=== PATIENT | female | born 1965 | race Caucasian/White ===

== ENCOUNTER 2018-01-09 14:18 | Inpatient (IN) | payer MEDICARE, SELFPAY ==
[2018-01-09] VITALS (10 sets, daily range): BP systolic 163–204; BP diastolic 64–94; PULSE 75–101; RESP 18–31; TEMP 36.9–37.2; O2SAT 82–95; BMI 44.9; BMI 47.6
--- NOTE | 2018-01-09 15:13 | EKG12_ITS ---
Test Reason : SOB Blood Pressure : / mmHG Vent. Rate : 078 BPM Atrial Rate : 078 BPM P-R Int : 190 ms QRS Dur : 080 ms QT Int : 408 ms P-R-T Axes : 038 024 038 degrees QTc Int : 465 ms Normal sinus rhythm Nonspecific T wave abnormality Prolonged QT Abnormal ECG Confirmed by JAREN REYES, ALTON ([id number]), makeup editor DC HOPSON ([id number]) on 01/11/2018 3:23:26 PM Referred By: Jordan Chow Confirmed By:ALTON EASTMAN MD
--- NOTE | 2018-01-09 15:13 | RAD_ITS ---
STUDY: X-RAY CHEST REASON FOR EXAM: Female, 52 years old. Shortness of breath x2 days. TECHNIQUE: Single frontal view of the chest. COMPARISON: None. FINDINGS: There are perihilar opacities. There is an indeterminant rounded opacity within the right infrahilar region. Normal size heart. Normal mediastinum and kristi. Normal visualized pulmonary arteries. Normal visualized aortic arch and descending thoracic aorta. Normal visualized thoracic spine. Normal visualized ribs, clavicles, and shoulders. There is no demonstrated abnormality of the visualized soft tissue structures of the upper abdomen. RAD/Chest 1 View (Portable) IMPRESSION: Perihilar opacities may be secondary to edema and/or pneumonia. Indeterminate rounded right infrahilar opacity, again this may be secondary to edema and/or pneumonia however cannot exclude underlying mass, consider CT for further characterization. Electronically Signed: Micaela Burton MD at 16:24 EDT Tel , Service support ,
--- NOTE | 2018-01-09 15:17 | NURSING ---
NO OLD EKGS
--- NOTE | 2018-01-09 15:18 | ED.DCSUM_ITS ---
- ER Visit Summary Date of Service: 01/09/18 Chief Complaint: Shortness of breath History of Present Illness: The patient is a 52 F presenting with shortness of breath times 2 days. She states this has been progressively worsening. She complains of a productive cough. She denies fever. Denies chest pain. She has a history of COPD, coronary artery disease, diabetes, hypertension, hypercholesterolemia. She is in town from [place] visiting her sister. She does not have her inhalers with her and she felt she had wheezing at home. Physical Examination: Vitals are stable. Patient is afebrile. Pulse ox 87% on room air. Alert no acute distress. HEENT exam is unremarkable. Neck is supple. Lungs are diminished bilaterally, bilateral wheezing Heart is regular rate and rhythm. Abdomen is soft nontender nondistended. Extremities are unremarkable. Skin is warm and dry. Remainder of exam is unremarkable. Emergency Department Course and Treatment: Patient was given albuterol, Atrovent aerosols. Chest x-ray shows right-sided infiltrate. EKG is sinus rate 78 with no acute changes. CBC unremarkable. Chemistries show sodium 132, BUN 30, creatinine 1.94. Troponin is negative. She is given Levaquin IV. Due to her hypoxia will discuss with the hospitalist for admission. Disposition: Admission Impression: Community acquired pneumonia, hypoxia This note was generated with [employer] dictation software. It may contain incorrect words, spelling, and punctuation that were not noted in review of the chart prior to signing ED Disposition - Plan for ED Patient: Chief Complaint: Shortness of Breath
[2018-01-09] MEDS: Ipratropium/Albuterol Sulfate 3 ML AMPUL.NEB INHALATION ×2 (15:25→20:15)
[2018-01-09] MEDS: Albuterol 2.5 MG/3 ML VIAL.NEB. INHALATION ×3 (15:25→15:40)
[2018-01-09 15:43] LABS: Absolute Lymphocyte Count 0.72 X10^3/ul (0.83-4.51); Absolute Neutrophil Count 7.1 X10^3/uL (2.0-7.7); Basophil# 0.02 X10^3/uL; Basophil% 0.2 % (0-1); Eosinophil# 0.15 X10^3/uL; Eosinophils% 1.7 % (0-5); Hematocrit 38.1 % (37-47); Hemoglobin 12.8 g/dl (12.0-15.0); Lymphocyte # 0.72 X10^3/ul (4.0); Lymphocyte % 8.3 % (19-41); Mean Corp Hgb Conc 33.6 g/gl (32-36); Mean Corpuscular Hgb 29.6 pg (27.0-32.0); Mean Corpuscular Volume 88.2 fL (81-99); Mean Platelet Vol. 12.8 fl (6.2-12.0); Monocyte# 0.66 X10^3/uL; Monocyte% 7.6 % (0-10); Neutrophil # 7.12 X10^3/uL (2.7-7.7); Platelet Count 191 K/mm3 (150-450); RBC Distribution Width CV 13.2 % (11.6-14.6); RBC Distribution Width SD 41.8 fl (35.1-43.9); Red Blood Count 4.32 M/mm3 (4.2-5.4); White Blood Count 8.7 K/mm3 (4.4-11.0)
[2018-01-09 15:44] LABS: POSITIVE COUNT NO; POSITIVE DIFFERENTIAL NO; POSITIVE MORPHOLOGY NO
[2018-01-09 16:02] LABS: Anion Gap 7 (5-15); BUN 30 mg/dL (7-18); BUN/Creat Ratio 15.5 RATIO (10-20); Calcium,Total 7.9 mg/dL (8.5-10.1); Chloride 97 mmol/L (98-107); Creatinine, Serum 1.94 mg/dL (0.55-1.02); EST Glomerular Filtration Rate 29 mL/min (>60); Est Glom Filt Rate - Afr Amer 35 mL/min (>60); Estimated Creatinine Clearance 26.83 ml/min; Glucose 430 mg/dL (74-106); Sodium Level 132 mmol/L (136-145)
--- NOTE | 2018-01-09 16:44 | NURSING ---
MED SURG CAP, HYPOXIA RUDI
[2018-01-09] MEDS: levoFLOXacin IV 750 MG/150 ML BAG 100 MG IV (17:04)
--- NOTE | 2018-01-09 17:23 | HP.PCM_ITS ---
Problem List (1) Acute kidney injury Status: Acute (2) Acute renal injury due to circulatory failure Status: Acute (3) Morbid obesity Status: Acute (4) Hypertension Status: Chronic (5) Asthma Status: Acute Qualifiers: Asthma severity: mild Asthma persistence: persistent Asthma complication type: with acute exacerbation Qualified Code(s): J45.31 - Mild persistent asthma with (acute) exacerbation (6) Community acquired bacterial pneumonia Status: Acute History of Present Illness Date of Admission: 01/09/18 Chief Complaint: Cough and shortness of breath This is a 50-year-old female with a history of hypertension insulin-dependent type 2 diabetes morbid obesity and coronary artery disease status post stents. Presents to the emergency department with a 2-3-day history of increasing fatigue, malaise, shortness of breath, exertional dyspnea and cough. Patient also has a fever and chills. Cough is productive of yellowish sputum she has not noted any hemoptysis. 1-2 days ago has been noticing some wheezing. She denies any lower extremity swelling, orthopnea or paroxysmal nocturnal dyspnea. Past Medical History Past Medical History (Chronic Problems): Chronic Problems Hypertension (Chronic) Allergies No Known Allergies Allergy (Verified 01/09/18 14:24) Home Medications: Ambulatory Orders Medication Instructions Recorded Aspirin [Aspirin, Baby] 81 mg PO DAILY 01/09/18 Atenolol [Tenormin] 100 mg PO DAILY 01/09/18 Clopidogrel Bisulfate [Plavix] 75 mg PO DAILY 01/09/18 Duloxetine Hcl [Cymbalta] 60 mg DAILY 01/09/18 Gabapentin [Gralise] 600 mg TID 01/09/18 Insulin Lispro [Humalog KwikPen] 0 units TID 01/09/18 Levemir FlexPen 80 units BID 01/09/18 Lisinopril [Zestril] 80 mg BID 01/09/18 Lovastatin [Mevacor] 40 mg PO DAILY 01/09/18 Vitamin D 4,000 units BID 01/09/18 Smoking Status: Former smoker Review of Systems Constitutional: Reports: Anorexia, Chills, Fever, Malaise, Weakness, Fatigue Cardiovascular: Denies: Edema Respiratory: Reports: Cough, Shortness of Breath, Shortness of breath at rest, Shortness of breath upon exertion, Sputum production, Wheezing Gastrointestinal: Reports: Nausea. Denies: Abdominal Pain, Vomiting Comment: All other systems reviewed and essentially negative VTE Information - Inpt Only VTE Present on Admission: No Patient Problems: Active and Suspected Problems Acute kidney injury (Acute) Acute renal injury due to circulatory failure (Acute) Morbid obesity (Acute) Asthma (Acute) Community acquired bacterial pneumonia (Acute) - Physical Exam General: Alert, Oriented x3, Cooperative, - - Acutely ill looking and mildly dyspneic HEENT: Atraumatic, PERRLA, EOMI, Normocephalic Oral: Moist Mucosa Neck: Supple, No JVD Lungs: - - Bilateral expiratory wheezing, mild, with associated transmitted sounds. Patient also has bronchial breath sounds and fine crackles in the right mid and lower zones. Cardiovascular: Regular rate, Regular Rhythm, Normal S1, Normal S2, No Ectopic Activity, - - Grade 2/6 systolic murmur noted patient also has right ventricular fourth and third heart sound Abdomen: Soft, Non Tender, Non-Distended, No Hepato-splenomegaly, Obese Extremities: No edema Skin: No rashes Neurological: Cranial nerves II-XII grossly intact, Neuro grossly intact Psych/Mental Status: Normal Affect, Appropriate Vital Signs Temp Pulse Resp BP Pulse Ox 98.8 F 87 31 H 197/82 H 89 01/09/18 14:19 01/09/18 15:26 01/09/18 16:29 01/09/18 15:01 01/09/18 16:29 Oxygen Flow Rate (L/min) 2 Oxygen Delivery Method Room Air Weight: 111.584 kg Body Mass Index (BMI) 44.9 Laboratory Tests Past 24 Hrs 01/09/18 01/09/18 15:30 15:30 WBC 8.7 RBC 4.32 Hgb 12.8 Hct 38.1 MCV 88.2 MCH 29.6 MCHC 33.6 RDW 13.2 RDW Differential 41.8 Plt Count 191 MPV 12.8 H Immature Gran % (Auto) 0.200 Neut % (Auto) 82.0 H Lymph % (Auto) 8.3 L [place] % (Auto) 7.6 Eos % (Auto) 1.7 Baso % (Auto) 0.2 Absolute Neuts (auto) 7.1 Absolute Lymphs (auto) 0.72 L Total Counted Not Reportable Sodium 132 L Potassium 4.0 Chloride 97 L Carbon Dioxide 28.0 Anion Gap 7 BUN 30 H Creatinine 1.94 H Estim Creat Clear Calc 26.83 Est GFR (MDRD) Af Amer 35 L Est GFR (MDRD) Non-Af 29 L BUN/Creatinine Ratio 15.5 Glucose 430 H Calcium 7.9 L Troponin I < 0.015 Assessment/Plan All Active Problems Acute kidney injury (Acute) Acute renal injury due to circulatory failure (Acute) Morbid obesity (Acute) Asthma (Acute) Community acquired bacterial pneumonia (Acute) 1. Committee acquired bacterial pneumonia. Will treat with IV antibiotics. 2. Acute hypoxic respiratory failure secondary to pneumonia. Oxygen saturation was 87% on RA. We will continue with supplemental oxygen and wean as tolerated. 3. Elevated creatinine. Uncertain if this is secondary to acute kidney injury or stage III CKD as patient does indeed have risk factors for CKD predominantly hypertension and diabetes. 4. Hypertension. Poorly controlled and markedly elevated at this time. Will resume patient's antihypertensives as these have been missed for today. 5. Insulin-dependent type 2 diabetes. Blood glucose markedly elevated at this time due to missed insulin doses. Will resume home regimen of insulin. Will place patient on a diabetic diet. Accu-Cheks before meals and at bedtime. 6. Morbid obesity. Code Visit Inpatient E&M: 76300 Init Hosp L3
--- NOTE | 2018-01-09 17:46 | CT_ITS ---
STUDY: CT CHEST WITHOUT CONTRAST REASON FOR EXAM: Female, 52 years old. Pneumonia, fatigue, malaise, shortness of breath, exertional. Cough, dyspnea, fever, chills, wheezing, hypertension, diabetes, asthma, heart stents RADIATION DOSAGE (If Supplied By Facility): CTDIvol = ( 20.15 ) mGy, DLP = ( 629.31 ) mGycm TECHNIQUE: Transaxial 2.5 mm imaging was performed without the administration of intravenous contrast material. Multiplanar coronal and sagittal images were reformatted. This examination is limited for the evaluation of gastrointestinal, solid organs and vascular structures due to the lack of intravenous contrast. There is obesity, the entirety of soft tissue is not imaged. Individualized dose optimization techniques were used for this CT. COMPARISON: Chest x-ray 03/11/2018. FINDINGS: There is airspace opacification and groundglass opacification involving the right greater than left lung. Atelectatic changes versus small infiltrate in the lung bases bilaterally. There is a small right, tiny left pleural effusion, fluid tracking into the left greater than right major fissure.. There is no demonstrated pleural abnormality. There is cardiac enlargement. There are calcifications of the coronary arteries and probable stent placement. There is no pericardial fluid. There is an enlarged lymph node anterior to the right mainstem bronchus a 1.2 cm short abscess, probable lymphadenopathy in the right hilum with otherwise multiple mediastinal small lymph nodes, which are normal in size and morphology most compatible with reactive lymph hyperplasia. Normal hilar regions. Normal unenhanced pulmonary arteries. There is atherosclerotic tortuosity of the aortic arch and descending thoracic aorta. There are multi-level degenerative changes of the thoracic spine. There is no demonstrated abnormality of the visualized upper abdomen. CT/Chest without Contrast IMPRESSION: Right greater than left airspace opacification likely inflammatory/infectious in nature. Mild mediastinal lymphadenopathy and lymphoid hyperplasia suspected. Cardiac enlargement, coronary artery disease, stent placement, arteriosclerosis and mild degenerative changes. Right greater than left small pleural effusions. Electronically Signed: Enriqueta Talbert MD at 6:50 EDT , Service support ,
[2018-01-09 18:29] LABS: Erythrocyte Sedimentation Rate 68 mm/hr (0-30)
[2018-01-09 18:46] LABS: Bedside Glucose 474 mg/dL (70-110)
[2018-01-09] MEDS: Insulin Lispro 100 UNIT/ML INSULN.PEN 20 UNIT SC (18:47)
[2018-01-09] MEDS: Atenolol 100 MG Tablet PO (18:49)
--- NOTE | 2018-01-09 18:53 | NURSING ---
dr august notified of blood sugar 474 and lab back up ordered per protocol. no new orders at this time. also aware of vsa scoring 2, elevated hr, bp and resps, does not want lactic acid drawn at this time
[2018-01-09 19:38] LABS: Mucous, Urine 0 SEEN /hpf (<or=2+)
[2018-01-09 19:40] LABS: Color, Urine Yellow (Yellow); Glucose, Dipstick 1000 mg/dl (Normal); Ketone-Dipstick 5 mg/dl (Negative); Leukocyte Esterase-Dipstick 100 /ul (Negative); Nitrite-Dipstick Negative (Negative); Occult Blood-Urine 50 /ul (Negative); Protein-Dipstick 500 mg/dl (Negative); Urine Bilirubin Dipstick Negative (Negative); Urine Clarity Cloudy (Clear); Urine Urobilinogen Normal (Normal)
[2018-01-09 19:51] LABS: Hyaline Cast 0-5 SEEN /lpf (0-5)
[2018-01-09 19:53] LABS: Fine Granular Cast- Urine 0-5 SEEN /lpf (0-5)
[2018-01-09 19:54] LABS: Bacteria 1+ /hpf (None Seen); Squamous Epithelial Cells - UA 5-10 SEEN /hpf (5-10)
[2018-01-09 19:55] LABS: Red Blood Cells-Urine 0-5 SEEN /hpf (0-5); White Blood Cells 0-5 SEEN /hpf (0-5); Yeast-Urine RARE /hpf (None Seen)
[2018-01-09 20:04] LABS: Glucose 494 mg/dL (74-106)
[2018-01-09] MEDS: Clopidogrel Bisulfate 75 MG Tablet PO (21:58)
[2018-01-09] MEDS: DULoxetine Hcl 60 MG Capsule PO (21:58)
[2018-01-09] MEDS: Gabapentin 600 MG Tablet PO (21:58)
[2018-01-09] MEDS: Aspirin 81 MG TAB.CHEW PO (21:59)
[2018-01-09] MEDS: Atorvastatin Calcium 10 MG Tablet PO (22:02)
[2018-01-09 22:10] LABS: Bedside Glucose 346 mg/dL (70-110)
[2018-01-09] MEDS: HYDROcodone Bitartrate/Apap 5/325 Tablet PO (22:59)
[2018-01-09] MEDS: Insulin Lispro 100 UNIT/ML INSULN.PEN SQ (22:59)
[2018-01-10] VITALS (9 sets, daily range): BP systolic 149–166; BP diastolic 72–88; PULSE 65–92; RESP 17–21; TEMP 36.6–36.8; O2SAT 91–96
[2018-01-10 05:41] LABS: Bedside Glucose 95 mg/dL (70-110)
[2018-01-10 05:59] LABS: Absolute Lymphocyte Count 1.81 X10^3/ul (0.83-4.51); Absolute Neutrophil Count 5.3 X10^3/uL (2.0-7.7); Basophil# 0.02 X10^3/uL; Basophil% 0.2 % (0-1); Eosinophil# 0.28 X10^3/uL; Eosinophils% 3.3 % (0-5); Hematocrit 32.1 % (37-47); Hemoglobin 10.7 g/dl (12.0-15.0); Lymphocyte # 1.81 X10^3/ul (4.0); Lymphocyte % 21.3 % (19-41); Mean Corp Hgb Conc 33.3 g/gl (32-36); Mean Corpuscular Hgb 29.1 pg (27.0-32.0); Mean Corpuscular Volume 87.2 fL (81-99); Mean Platelet Vol. 12.3 fl (6.2-12.0); Monocyte# 1.01 X10^3/uL; Monocyte% 11.9 % (0-10); Neutrophil # 5.34 X10^3/uL (2.7-7.7); Neutrophil % 62.9 % (47-70); Platelet Count 214 K/mm3 (150-450); RBC Distribution Width SD 41.8 fl (35.1-43.9); Red Blood Count 3.68 M/mm3 (4.2-5.4); White Blood Count 8.5 K/mm3 (4.4-11.0)
[2018-01-10 06:08] LABS: POSITIVE COUNT NO; POSITIVE DIFFERENTIAL NO; POSITIVE MORPHOLOGY NO
[2018-01-10 06:30] LABS: ALB/GLOB Ratio 0.4 RATIO (0.9-2.4); AST(SGOT) 14 U/L (15-37); Alanine Aminotransfer ALT/SGPT 11 U/L (13-56); Albumin, Serum 1.5 g/dL (3.2-5.0); Alkaline Phosphatase 107 U/L (45-117); Anion Gap 11 (5-15); BUN 30 mg/dL (7-18); BUN/Creat Ratio 17.4 RATIO (10-20); Calcium,Total 7.6 mg/dL (8.5-10.1); Chloride 99 mmol/L (98-107); Creatinine, Serum 1.72 mg/dL (0.55-1.02); EST Glomerular Filtration Rate 33 mL/min (>60); Est Glom Filt Rate - Afr Amer 40 mL/min (>60); Estimated Creatinine Clearance 30.26 ml/min; Glucose 93 mg/dL (74-106); Potassium 3.4 mmol/L (3.5-5.1); Protein, Total 5.5 g/dL (6.4-8.2); Sodium Level 137 mmol/L (136-145)
[2018-01-10] MEDS: Ipratropium/Albuterol Sulfate 3 ML AMPUL.NEB INHALATION ×4 (06:52→23:37)
[2018-01-10] MEDS: Glucerna Shake 120 ML LIQUID PO (08:55)
[2018-01-10] MEDS: Clopidogrel Bisulfate 75 MG Tablet PO (08:56)
[2018-01-10] MEDS: Aspirin 81 MG TAB.CHEW PO (08:56)
[2018-01-10] MEDS: Insulin Lispro 100 UNIT/ML INSULN.PEN 20 UNIT SC (08:56)
[2018-01-10] MEDS: DULoxetine Hcl 60 MG Capsule PO (08:56)
[2018-01-10] MEDS: Gabapentin 600 MG Tablet PO ×3 (08:56→16:17)
[2018-01-10] MEDS: levoFLOXacin IV 250 MG/50 ML BAG 50 MG IV (08:57)
[2018-01-10] MEDS: Enoxaparin 30 MG/0.3 ML Syringe SC (08:57)
[2018-01-10] MEDS: Atenolol 100 MG Tablet PO (08:59)
[2018-01-10] MEDS: 0.9% NaCl Peripheral Flush Adult/Peds IV ×5 (09:00→21:29)
[2018-01-10 09:16] LABS: Bedside Glucose 108 mg/dL (70-110)
--- NOTE | 2018-01-10 11:58 | PCM.PN.HOSP ---
Patient Problems: Active and Suspected Problems Acute kidney injury (Acute) Acute renal injury due to circulatory failure (Acute) Morbid obesity (Acute) Asthma (Acute) Community acquired bacterial pneumonia (Acute) Subjective: Patient was seen and examined. Complains of SOB, wheezing, cough. Denies fever or chills. Vitals/I&O's: Vital Signs Temp Pulse Resp BP Pulse Ox 98.1 F 68 20 H 149/72 H 95 01/10/18 09:00 01/10/18 09:00 01/10/18 09:00 01/10/18 09:00 01/10/18 09:00 Oxygen Flow Rate (L/min) 2 Oxygen Delivery Method Nasal Cannula Weight: 118.1 kg Body Mass Index (BMI) 47.6 Intake and Output for Last 24 Hours 01/08/18 01/09/18 01/10/18 23:59 23:59 23:59 Intake Total 1204 / 1204 700 / 700 Balance 1204 / 1204 700 / 700 General: Alert, Oriented x3, Cooperative, No apparent distress, - - on 2L of intranasal oxygen HEENT: Atraumatic, PERRLA, EOMI, Normocephalic Oral: Moist Mucosa Neck: Supple Lungs: Clear to auscultation, Normal air movement Cardiovascular: Regular rate, Regular Rhythm, Normal S1, Normal S2, No murmurs Abdomen: Bowel Sounds Present, Soft, Non Tender, Non-Distended, No Hepato-splenomegaly Extremities: No edema Skin: No rashes, No breakdown Musculoskeletal: No Tenderness to Palpation of Joints or Extremities Lymphatic: No Cervical, Supraclavicular, or Inguinal Adenopathy Neurological: Cranial nerves II-XII grossly intact, Neuro grossly intact Psych/Mental Status: Normal Affect, Appropriate Laboratory Results 01/09/18 15:30: WBC 8.7, RBC 4.32, Hgb 12.8, Hct 38.1, MCV 88.2, MCH 29.6, MCHC 33.6, RDW 13.2, RDW Differential 41.8, Plt Count 191, MPV 12.8 H, Immature Gran % (Auto) 0.200, Neut % (Auto) 82.0 H, Lymph % (Auto) 8.3 L, [place] % (Auto) 7.6, Eos % (Auto) 1.7, Baso % (Auto) 0.2, Absolute Neuts (auto) 7.1, Absolute Lymphs (auto) 0.72 L, Total Counted Not Reportable 01/09/18 15:30: Sodium 132 L, Potassium 4.0, Chloride 97 L, Carbon Dioxide 28.0, Anion Gap 7, BUN 30 H, Creatinine 1.94 H, Estim Creat Clear Calc 26.83, Est GFR (MDRD) Af Amer 35 L, Est GFR (MDRD) Non-Af 29 L, BUN/Creatinine Ratio 15.5, Glucose 430 H, Calcium 7.9 L, Troponin I < 0.015 01/09/18 15:30: ESR 68 H 01/09/18 18:41: POC Glucose 474 H* 01/09/18 19:15: Urine Color Yellow, Urine Clarity Cloudy, Urine pH 6.0, Ur Specific [place] 1.010, Urine Protein 500 H, Urine Glucose (UA) 1000 H, Urine Ketones 5 H, Urine Occult Blood 50 H, Urine Nitrite Negative, Urine Bilirubin Negative, Urine Urobilinogen Normal, Ur Leukocyte Esterase 100 H, Urine RBC 0-5 SEEN, Urine WBC 0-5 SEEN, Ur Squamous Epith Cells 5-10 SEEN, Urine Bacteria 1+, Hyaline Casts 0-5 SEEN, Fine Granular Casts 0-5 SEEN, Urine Mucus 0 SEEN, Urine Yeast RARE 01/09/18 19:30: C-React Prot Ext Range 155.00 H 01/09/18 19:30: Glucose 494 H* 01/09/18 22:04: POC Glucose 346 H 01/10/18 05:15: POC Glucose 95 01/10/18 05:30: WBC 8.5, RBC 3.68 L, Hgb 10.7 L, Hct 32.1 L, MCV 87.2, MCH 29.1, MCHC 33.3, RDW 13.0, RDW Differential 41.8, Plt Count 214, MPV 12.3 H, Immature Gran % (Auto) 0.400, Neut % (Auto) 62.9, Lymph % (Auto) 21.3, [place] % (Auto) 11.9 H, Eos % (Auto) 3.3, Baso % (Auto) 0.2, Absolute Neuts (auto) 5.3, Absolute Lymphs (auto) 1.81, Total Counted Not Reportable 01/10/18 05:30: Sodium 137, Potassium 3.4 L, Chloride 99, Carbon Dioxide 27.0, Anion Gap 11, BUN 30 H, Creatinine 1.72 H, Estim Creat Clear Calc 30.26, Est GFR (MDRD) Af Amer 40 L, Est GFR (MDRD) Non-Af 33 L, BUN/Creatinine Ratio 17.4, Glucose 93, Calcium 7.6 L, Total Bilirubin 0.50, AST 14 L, ALT 11 L, Alkaline Phosphatase 107, Total Protein 5.5 L, Albumin 1.5 L, Globulin 4.0, Albumin/Globulin Ratio 0.4 L 01/10/18 08:49: POC Glucose 108 Current Medications Hydrocodone Bitart/Acetaminophen (Rhododendron 5mg-325mg) 1 tablet PO Q12H PRN PRN PRN Reason: SEVERE PAIN (-01/06) Last Admin: 01/09/18 22:59 Dose: 1 tablet Albuterol Sulfate (Ventolin Aerosols) 2.5 mg INHALATION Q2H PRN PRN PRN Reason: SOB &/OR WHEEZING Albuterol/Ipratropium (Duoneb) 3 ml INHALATION Q4H.RT [facility] Aspirin (Aspirin, Baby) 81 mg PO DAILY@0800 [facility] Last Admin: 01/10/18 08:56 Dose: 81 mg Atenolol (Tenormin (Beta Ángela)) 100 mg PO DAILY [facility] Last Admin: 01/10/18 08:59 Dose: 100 mg Atorvastatin Calcium (Lipitor) 10 mg PO QHS [facility] Last Admin: 01/09/18 22:02 Dose: 10 mg Clopidogrel Bisulfate (Plavix) 75 mg PO DAILY [facility] Last Admin: 01/10/18 08:56 Dose: 75 mg Dextrose (D50w Syringe) 0 gm IV X1 PRN; Protocol PRN Reason: Hypoglycemia Duloxetine HCl (Cymbalta) 60 mg PO DAILY [facility] Last Admin: 01/10/18 08:56 Dose: 60 mg Enoxaparin Sodium (Lovenox) 30 mg SC DAILY@1000 [facility] Last Admin: 01/10/18 08:57 Dose: 30 mg Gabapentin (Neurontin) 600 mg PO TIDCM [facility] Last Admin: 01/10/18 11:28 Dose: 600 mg Glucagon () 1 mg IM .X1 PRN PRN Reason: Hypoglycemia Levofloxacin (Levaquin Iv) 250 mg in 50 mls @ 50 mls/hr IV Q24 [facility] Last Admin: 01/10/18 08:57 Dose: 50 mls/hr Insulin Glargine (Lantus (Bkc)) 80 units SC BID [facility] Last Admin: 01/10/18 08:58 Dose: 80 u Insulin Human Lispro (Humalog Kwikpen (Bkc)) 20 unit SC TIDCM [facility] Last Admin: 01/10/18 08:56 Dose: 20 u Insulin Human Lispro (Humalog Kwikpen (Bkc)) 0 unit SQ ACHS [facility]; Protocol Last Admin: 01/10/18 11:33 Dose: Not Given Magnesium Hydroxide (Milk Of Magnesia) 30 ml PO DAILY PRN PRN PRN Reason: Constipation Methylprednisolone (Solu-Medrol) 40 mg IV Q8 [facility] Last Admin: 01/10/18 11:26 Dose: 40 mg Nutritional Formula (Lactose Free) (Glucerna Shake) 120 ml PO 4X/DAY [facility] Last Admin: 01/10/18 08:55 Dose: 120 ml Psyllium Hydrophilic Mucilloid (Metamucil) 1 packet PO DAILY PRN PRN PRN Reason: CONSTIPATION Sodium Chloride () 5 - 30 ml IV UD PRN PRN Reason: SALINE FLUSH Last Admin: 01/10/18 11:27 Dose: 10 ml Medical Necessity - Tobacco Use Smoking Status: Former smoker Assessment/Plan All Active Problems Acute kidney injury (Acute) Acute renal injury due to circulatory failure (Acute) Morbid obesity (Acute) Asthma (Acute) Community acquired bacterial pneumonia (Acute) 52y/o female with PMHx of morbid obesity, Hypertension, Asthma/COPD comes in with SOB and wheezing 1. Acute hypoxic respiratory failure currently to community-acquired pneumonia, patient is slowly improving, on 2 L of oxygen, would add incentive spirometer. Will check respiratory panel. 2. Community acquired pneumonia, no leukocytosis, on levofloxacin, will check for urine streptococcal and legionella antigen. 3. Hypertension, controlled, on atenolol, will continue to monitor. 4. Type 2 DM, on insulin, having episodes of hypoglycemia, will hold Lantus and pre-meal Lispro, will continue with accucheks and ISS 5. Acute COPD exacerbation, not on home oxygen, will add Solumedrol 40mg IV q8, continue with breathing treatment, add Levofloxacin. 6. Morbid Obesity, BMI 47.6, diet and exercises recommended. 7. DVT PPx- Lovenox SC Code Visit Inpatient E&M: 40928 Subs Hosp L2
--- NOTE | 2018-01-10 12:02 | PN_ITS ---
Patient Problems: Active and Suspected Problems Acute kidney injury (Acute) Acute renal injury due to circulatory failure (Acute) Morbid obesity (Acute) Asthma (Acute) Community acquired bacterial pneumonia (Acute) Subjective: Patient was seen and examined. Complains of SOB, wheezing, cough. Denies fever or chills. Vitals/I&O's: Vital Signs Temp Pulse Resp BP Pulse Ox 98.1 F 68 20 H 149/72 H 95 01/10/18 09:00 01/10/18 09:00 01/10/18 09:00 01/10/18 09:00 01/10/18 09:00 Oxygen Flow Rate (L/min) 2 Oxygen Delivery Method Nasal Cannula Weight: 118.1 kg Body Mass Index (BMI) 47.6 Intake and Output for Last 24 Hours 01/08/18 01/09/18 01/10/18 23:59 23:59 23:59 Intake Total 1204 / 1204 700 / 700 Balance 1204 / 1204 700 / 700 General: Alert, Oriented x3, Cooperative, No apparent distress, - - on 2L of intranasal oxygen HEENT: Atraumatic, PERRLA, EOMI, Normocephalic Oral: Moist Mucosa Neck: Supple Lungs: Clear to auscultation, Normal air movement Cardiovascular: Regular rate, Regular Rhythm, Normal S1, Normal S2, No murmurs Abdomen: Bowel Sounds Present, Soft, Non Tender, Non-Distended, No Hepato- splenomegaly Extremities: No edema Skin: No rashes, No breakdown Musculoskeletal: No Tenderness to Palpation of Joints or Extremities Lymphatic: No Cervical, Supraclavicular, or Inguinal Adenopathy Neurological: Cranial nerves II-XII grossly intact, Neuro grossly intact Psych/Mental Status: Normal Affect, Appropriate Laboratory Results 01/09/18 15:30: WBC 8.7, RBC 4.32, Hgb 12.8, Hct 38.1, MCV 88.2, MCH 29.6, MCHC 33.6, RDW 13.2, RDW Differential 41.8, Plt Count 191, MPV 12.8 H, Immature Gran % (Auto) 0.200, Neut % (Auto) 82.0 H, Lymph % (Auto) 8.3 L, [place] % (Auto) 7.6, Eos % (Auto) 1.7, Baso % (Auto) 0.2, Absolute Neuts (auto) 7.1, Absolute Lymphs (auto) 0.72 L, Total Counted Not Reportable 01/09/18 15:30: Sodium 132 L, Potassium 4.0, Chloride 97 L, Carbon Dioxide 28.0, Anion Gap 7, BUN 30 H, Creatinine 1.94 H, Estim Creat Clear Calc 26.83, Est GFR (MDRD) Af Amer 35 L, Est GFR (MDRD) Non-Af 29 L, BUN/Creatinine Ratio 15.5, Glucose 430 H, Calcium 7.9 L, Troponin I < 0.015 01/09/18 15:30: ESR 68 H 01/09/18 18:41: POC Glucose 474 H* 01/09/18 19:15: Urine Color Yellow, Urine Clarity Cloudy, Urine pH 6.0, Ur Specific [place] 1.010, Urine Protein 500 H, Urine Glucose (UA) 1000 H, Urine Ketones 5 H, Urine Occult Blood 50 H, Urine Nitrite Negative, Urine Bilirubin Negative, Urine Urobilinogen Normal, Ur Leukocyte Esterase 100 H, Urine RBC 0-5 SEEN, Urine WBC 0-5 SEEN, Ur Squamous Epith Cells 5-10 SEEN, Urine Bacteria 1+, Hyaline Casts 0-5 SEEN, Fine Granular Casts 0-5 SEEN, Urine Mucus 0 SEEN, Urine Yeast RARE 01/09/18 19:30: C-React Prot Ext Range 155.00 H 01/09/18 19:30: Glucose 494 H* 01/09/18 22:04: POC Glucose 346 H 01/10/18 05:15: POC Glucose 95 01/10/18 05:30: WBC 8.5, RBC 3.68 L, Hgb 10.7 L, Hct 32.1 L, MCV 87.2, MCH 29.1, MCHC 33.3, RDW 13.0, RDW Differential 41.8, Plt Count 214, MPV 12.3 H, Immature Gran % (Auto) 0.400, Neut % (Auto) 62.9, Lymph % (Auto) 21.3, [place] % (Auto) 11.9 H, Eos % (Auto) 3.3, Baso % (Auto) 0.2, Absolute Neuts (auto) 5.3, Absolute Lymphs (auto) 1.81, Total Counted Not Reportable 01/10/18 05:30: Sodium 137, Potassium 3.4 L, Chloride 99, Carbon Dioxide 27.0, Anion Gap 11, BUN 30 H, Creatinine 1.72 H, Estim Creat Clear Calc 30.26, Est GFR (MDRD) Af Amer 40 L, Est GFR (MDRD) Non-Af 33 L, BUN/Creatinine Ratio 17.4, Glucose 93, Calcium 7.6 L, Total Bilirubin 0.50, AST 14 L, ALT 11 L, Alkaline Phosphatase 107, Total Protein 5.5 L, Albumin 1.5 L, Globulin 4.0, Albumin/Globulin Ratio 0.4 L 01/10/18 08:49: POC Glucose 108 Current Medications Hydrocodone Bitart/Acetaminophen ([place] 5mg-325mg) 1 tablet PO Q12H PRN PRN PRN Reason: SEVERE PAIN (-01/06) Last Admin: 01/09/18 22:59 Dose: 1 tablet Albuterol Sulfate (Ventolin Aerosols) 2.5 mg INHALATION Q2H PRN PRN PRN Reason: SOB &/OR WHEEZING Albuterol/Ipratropium (Duoneb) 3 ml INHALATION Q4H.RT [facility] Aspirin (Aspirin, Baby) 81 mg PO DAILY@0800 [facility] Last Admin: 01/10/18 08:56 Dose: 81 mg Atenolol (Tenormin (Beta Ángela)) 100 mg PO DAILY [facility] Last Admin: 01/10/18 08:59 Dose: 100 mg Atorvastatin Calcium (Lipitor) 10 mg PO QHS [facility] Last Admin: 01/09/18 22:02 Dose: 10 mg Clopidogrel Bisulfate (Plavix) 75 mg PO DAILY [facility] Last Admin: 01/10/18 08:56 Dose: 75 mg Dextrose (D50w Syringe) 0 gm IV X1 PRN; Protocol PRN Reason: Hypoglycemia Duloxetine HCl (Cymbalta) 60 mg PO DAILY [facility] Last Admin: 01/10/18 08:56 Dose: 60 mg Enoxaparin Sodium (Lovenox) 30 mg SC DAILY@1000 [facility] Last Admin: 01/10/18 08:57 Dose: 30 mg Gabapentin (Neurontin) 600 mg PO TIDCM [facility] Last Admin: 01/10/18 11:28 Dose: 600 mg Glucagon () 1 mg IM .X1 PRN PRN Reason: Hypoglycemia Levofloxacin (Levaquin Iv) 250 mg in 50 mls @ 50 mls/hr IV Q24 [facility] Last Admin: 01/10/18 08:57 Dose: 50 mls/hr Insulin Glargine (Lantus (Bkc)) 80 units SC BID [facility] Last Admin: 01/10/18 08:58 Dose: 80 u Insulin Human Lispro (Humalog Kwikpen (Bkc)) 20 unit SC TIDCM [facility] Last Admin: 01/10/18 08:56 Dose: 20 u Insulin Human Lispro (Humalog Kwikpen (Bkc)) 0 unit SQ ACHS [facility]; Protocol Last Admin: 01/10/18 11:33 Dose: Not Given Magnesium Hydroxide (Milk Of Magnesia) 30 ml PO DAILY PRN PRN PRN Reason: Constipation Methylprednisolone (Solu-Medrol) 40 mg IV Q8 [facility] Last Admin: 01/10/18 11:26 Dose: 40 mg Nutritional Formula (Lactose Free) (Glucerna Shake) 120 ml PO 4X/DAY [facility] Last Admin: 01/10/18 08:55 Dose: 120 ml Psyllium Hydrophilic Mucilloid (Metamucil) 1 packet PO DAILY PRN PRN PRN Reason: CONSTIPATION Sodium Chloride () 5 - 30 ml IV UD PRN PRN Reason: SALINE FLUSH Last Admin: 01/10/18 11:27 Dose: 10 ml Medical Necessity - Tobacco Use Smoking Status: Former smoker Assessment/Plan All Active Problems Acute kidney injury (Acute) Acute renal injury due to circulatory failure (Acute) Morbid obesity (Acute) Asthma (Acute) Community acquired bacterial pneumonia (Acute) 52y/o female with PMHx of morbid obesity, Hypertension, Asthma/COPD comes in with SOB and wheezing 1. Acute hypoxic respiratory failure currently to community-acquired pneumonia, patient is slowly improving, on 2 L of oxygen, would add incentive spirometer. Will check respiratory panel. 2. Community acquired pneumonia, no leukocytosis, on levofloxacin, will check for urine streptococcal and legionella antigen. 3. Hypertension, controlled, on atenolol, will continue to monitor. 4. Type 2 DM, on insulin, having episodes of hypoglycemia, will hold Lantus and pre-meal Lispro, will continue with accucheks and ISS 5. Acute COPD exacerbation, not on home oxygen, will add Solumedrol 40mg IV q8, continue with breathing treatment, add Levofloxacin. 6. Morbid Obesity, BMI 47.6, diet and exercises recommended. 7. DVT PPx- Lovenox SC Code Visit Inpatient E&M: 68786 Subs Hosp L2
[2018-01-10 12:06] LABS: Bedside Glucose 81 mg/dL (70-110)
[2018-01-10] MEDS: Insulin Lispro 100 UNIT/ML INSULN.PEN SQ ×2 (16:17→21:28)
[2018-01-10 16:51] LABS: Bedside Glucose 224 mg/dL (70-110)
[2018-01-10] MEDS: Atorvastatin Calcium 10 MG Tablet PO (21:30)
[2018-01-10] MEDS: guaiFENesin/D-Methorphan TAB.SR.12H 1 TABLET PO (21:34)
[2018-01-10 22:31] LABS: Bedside Glucose 428 mg/dL (70-110)
[2018-01-11] VITALS (11 sets, daily range): BP systolic 149–153; BP diastolic 74–83; PULSE 71–80; RESP 16–20; TEMP 36.6; O2SAT 93–98
[2018-01-11] MEDS: Ipratropium/Albuterol Sulfate 3 ML AMPUL.NEB INHALATION ×6 (04:03→23:07)
[2018-01-11] MEDS: HYDROcodone Bitartrate/Apap 5/325 Tablet PO (05:05)
[2018-01-11] MEDS: 0.9% NaCl Peripheral Flush Adult/Peds IV ×2 (06:08→09:27)
[2018-01-11] MEDS: Insulin Lispro 100 UNIT/ML INSULN.PEN 15 UNIT SC (07:26)
[2018-01-11 07:31] LABS: Bedside Glucose 469 mg/dL (70-110)
[2018-01-11 07:49] LABS: Glucose 456 mg/dL (74-106)
[2018-01-11] MEDS: Aspirin 81 MG TAB.CHEW PO (09:17)
[2018-01-11] MEDS: guaiFENesin/D-Methorphan TAB.SR.12H 1 TABLET PO ×2 (09:18→22:04)
[2018-01-11] MEDS: Enoxaparin 30 MG/0.3 ML Syringe SC (09:18)
[2018-01-11] MEDS: Atenolol 100 MG Tablet PO (09:18)
[2018-01-11] MEDS: Clopidogrel Bisulfate 75 MG Tablet PO (09:18)
[2018-01-11] MEDS: Gabapentin 600 MG Tablet PO ×3 (09:18→16:25)
[2018-01-11] MEDS: DULoxetine Hcl 60 MG Capsule PO (09:18)
[2018-01-11] MEDS: levoFLOXacin IV 250 MG/50 ML BAG 50 MG IV (09:26)
--- NOTE | 2018-01-11 10:49 | PCM.PN.HOSP ---
Patient Problems: Active and Suspected Problems Acute kidney injury (Acute) Acute renal injury due to circulatory failure (Acute) Morbid obesity (Acute) Asthma (Acute) Community acquired bacterial pneumonia (Acute) Subjective: Patient was seen and examined. Feels better. Been ambulating around the room. Feels SOB,coughing up sputum. BS is elevated with start of steroids. Has a relatively low BS in the morning with her insulins being held. Denies fever, chest pain, dizziness or palpitations. Vitals/I&O's: Vital Signs Temp Pulse Resp BP Pulse Ox 97.9 F 80 18 149/83 H 96 01/11/18 10:20 01/11/18 10:20 01/11/18 10:20 01/11/18 10:20 01/11/18 10:20 Oxygen Flow Rate (L/min) 2 Oxygen Delivery Method Room Air Weight: 118.1 kg Body Mass Index (BMI) 47.6 Intake and Output for Last 24 Hours 01/09/18 01/10/18 01/11/18 23:59 23:59 23:59 Intake Total 1204 / 1204 700 / 700 870 / 870 Balance 1204 / 1204 700 / 700 870 / 870 General: Alert, Oriented x3, Cooperative, No apparent distress, - - on 2L oxygen, morbid obesity HEENT: Atraumatic, PERRLA, EOMI, Normocephalic Oral: Moist Mucosa Neck: Supple Lungs: Diminished - especially at the lung bases, Rhonchi Cardiovascular: Regular rate, Regular Rhythm, Normal S1, Normal S2, No murmurs Abdomen: Bowel Sounds Present, Soft, Non Tender, Non-Distended, No Hepato-splenomegaly Extremities: No edema Skin: No rashes, No breakdown Musculoskeletal: No Tenderness to Palpation of Joints or Extremities Lymphatic: No Cervical, Supraclavicular, or Inguinal Adenopathy Neurological: Cranial nerves II-XII grossly intact, Neuro grossly intact Psych/Mental Status: Normal Affect, Appropriate Microbiology Past 72 Hours 01/10/18 13:50 Urine, Clean Catch Legionella Antigen - Final 01/10/18 13:50 Urine, Clean Catch Streptococcus pneumoniae Antigen (M - Final 01/10/18 10:40 Mucosa - Nasopharyngeal Respiratory Panel (PCR) - Final Rhinovirus Laboratory Results 01/10/18 11:31: POC Glucose 81 10/14/18 16:16: POC Glucose 224 H 01/10/18 21:21: POC Glucose 428 H 01/11/18 06:48: POC Glucose 469 H* 01/11/18 07:28: Glucose 456 H* Current Medications Hydrocodone Bitart/Acetaminophen ([place] 5mg-325mg) 1 tablet PO Q12H PRN PRN PRN Reason: SEVERE PAIN (6-10/10) Last Admin: 01/11/18 05:05 Dose: 1 tablet Albuterol Sulfate (Ventolin Aerosols) 2.5 mg INHALATION Q2H PRN PRN PRN Reason: SOB &/OR WHEEZING Albuterol/Ipratropium (Duoneb) 3 ml INHALATION Q4H.RT [facility] Last Admin: 01/11/18 07:16 Dose: 3 ml Aspirin (Aspirin, Baby) 81 mg PO DAILY@0800 [facility] Last Admin: 01/11/18 09:17 Dose: 81 mg Atenolol (Tenormin (Beta Ángela)) 100 mg PO DAILY [facility] Last Admin: 01/11/18 09:18 Dose: 100 mg Atorvastatin Calcium (Lipitor) 10 mg PO QHS [facility] Last Admin: 01/10/18 21:30 Dose: 10 mg Clopidogrel Bisulfate (Plavix) 75 mg PO DAILY [facility] Last Admin: 01/11/18 09:18 Dose: 75 mg Dextrose (D50w Syringe) 0 gm IV X1 PRN; Protocol PRN Reason: Hypoglycemia Duloxetine HCl (Cymbalta) 60 mg PO DAILY [facility] Last Admin: 01/11/18 09:18 Dose: 60 mg Enoxaparin Sodium (Lovenox) 30 mg SC DAILY@1000 [facility] Last Admin: 01/11/18 09:18 Dose: 30 mg Gabapentin (Neurontin) 600 mg PO TIDCM [facility] Last Admin: 01/11/18 09:18 Dose: 600 mg Glucagon () 1 mg IM .X1 PRN PRN Reason: Hypoglycemia Guaifenesin (Humibid Dm) 1 tablet PO BID [facility] Last Admin: 01/11/18 09:18 Dose: 1 tablet Levofloxacin (Levaquin Iv) 250 mg in 50 mls @ 50 mls/hr IV Q24 [facility] Last Admin: 01/11/18 09:26 Dose: 50 mls/hr Insulin Glargine (Lantus (Bkc)) 80 units SC BID [facility] Insulin Human Lispro (Humalog Kwikpen (Bkc)) 0 unit SQ ACHS [facility]; Protocol Last Admin: 01/11/18 06:53 Dose: Not Given Magnesium Hydroxide (Milk Of Magnesia) 30 ml PO DAILY PRN PRN PRN Reason: Constipation Prednisone () 40 mg PO DAILY@0800 [facility]; Taper Stop: 01/24/18 07:59 Psyllium Hydrophilic Mucilloid (Metamucil) 1 packet PO DAILY PRN PRN PRN Reason: CONSTIPATION Sodium Chloride () 5 - 30 ml IV UD PRN PRN Reason: SALINE FLUSH Last Admin: 01/11/18 09:27 Dose: 10 ml Sodium Chloride ([place] Nasal [place]) 1 spray NASAL TID PRN PRN PRN Reason: NASAL DRYNESS Medical Necessity - Tobacco Use Smoking Status: Former smoker Assessment/Plan All Active Problems Acute kidney injury (Acute) Acute renal injury due to circulatory failure (Acute) Morbid obesity (Acute) Asthma (Acute) Community acquired bacterial pneumonia (Acute) 52y/o female with PMHx of morbid obesity, Hypertension, Asthma/COPD comes in with SOB and wheezing 1. Acute hypoxic respiratory failure secondary to community-acquired pneumonia/acute COPD exacerbation/Acute Rhinovirus bronchitis, minimally improved, remains on 2 L of oxygen, will continue to encourage incentive spirometer, wean off oxygen. 2. Community acquired pneumonia, urine streptococcal and legionella antigen negative, on Levaquin, will switch to oral levaquin for 5 more days, making a total of 7 days. 3. Hypertension, controlled, on atenolol, will continue to monitor. 4. Type 2 DM, on insulin, BS now uncontrolled, previously had episodes of hypoglycemia, home Lantus and pre-meal Lispro was withheld, Will now resume home insulin, continue with accucheks and ISS. 5. Acute COPD exacerbation secondary to acute rhinovirus infection, was on Solumedrol 40mg IV q8, will switch to oral prednisone, will continue with breathing treatment 6. Morbid Obesity, BMI 47.6, diet and exercises recommended. 7. CKD stage 3, POA, unclear if she had CARYN as baseline creatinine is unknown, will continue to monitor. 8. DVT PPx- Lovenox SC Code Visit Inpatient E&M: 96313 Subs Hosp L2
--- NOTE | 2018-01-11 10:53 | PN_ITS ---
Patient Problems: Active and Suspected Problems Acute kidney injury (Acute) Acute renal injury due to circulatory failure (Acute) Morbid obesity (Acute) Asthma (Acute) Community acquired bacterial pneumonia (Acute) Subjective: Patient was seen and examined. Feels better. Been ambulating around the room. Feels SOB,coughing up sputum. BS is elevated with start of steroids. Has a relatively low BS in the morning with her insulins being held. Denies fever, chest pain, dizziness or palpitations. Vitals/I&O's: Vital Signs Temp Pulse Resp BP Pulse Ox 97.9 F 80 18 149/83 H 96 01/11/18 10:20 01/11/18 10:20 01/11/18 10:20 01/11/18 10:20 01/11/18 10:20 Oxygen Flow Rate (L/min) 2 Oxygen Delivery Method Room Air Weight: 118.1 kg Body Mass Index (BMI) 47.6 Intake and Output for Last 24 Hours 01/09/18 01/10/18 01/11/18 23:59 23:59 23:59 Intake Total 1204 / 1204 700 / 700 870 / 870 Balance 1204 / 1204 700 / 700 870 / 870 General: Alert, Oriented x3, Cooperative, No apparent distress, - - on 2L oxygen, morbid obesity HEENT: Atraumatic, PERRLA, EOMI, Normocephalic Oral: Moist Mucosa Neck: Supple Lungs: Diminished - especially at the lung bases, Rhonchi Cardiovascular: Regular rate, Regular Rhythm, Normal S1, Normal S2, No murmurs Abdomen: Bowel Sounds Present, Soft, Non Tender, Non-Distended, No Hepato- splenomegaly Extremities: No edema Skin: No rashes, No breakdown Musculoskeletal: No Tenderness to Palpation of Joints or Extremities Lymphatic: No Cervical, Supraclavicular, or Inguinal Adenopathy Neurological: Cranial nerves II-XII grossly intact, Neuro grossly intact Psych/Mental Status: Normal Affect, Appropriate Microbiology Past 72 Hours 01/10/18 13:50 Urine, Clean Catch Legionella Antigen - Final 01/10/18 13:50 Urine, Clean Catch Streptococcus pneumoniae Antigen (M - Final 01/10/18 10:40 Mucosa - Nasopharyngeal Respiratory Panel (PCR) - Final Rhinovirus Laboratory Results 01/10/18 11:31: POC Glucose 81 10/14/18 16:16: POC Glucose 224 H 01/10/18 21:21: POC Glucose 428 H 01/11/18 06:48: POC Glucose 469 H* 01/11/18 07:28: Glucose 456 H* Current Medications Hydrocodone Bitart/Acetaminophen ([place] 5mg-325mg) 1 tablet PO Q12H PRN PRN PRN Reason: SEVERE PAIN (6-10/10) Last Admin: 01/11/18 05:05 Dose: 1 tablet Albuterol Sulfate (Ventolin Aerosols) 2.5 mg INHALATION Q2H PRN PRN PRN Reason: SOB &/OR WHEEZING Albuterol/Ipratropium (Duoneb) 3 ml INHALATION Q4H.RT [facility] Last Admin: 01/11/18 07:16 Dose: 3 ml Aspirin (Aspirin, Baby) 81 mg PO DAILY@0800 [facility] Last Admin: 01/11/18 09:17 Dose: 81 mg Atenolol (Tenormin (Beta Ángela)) 100 mg PO DAILY [facility] Last Admin: 01/11/18 09:18 Dose: 100 mg Atorvastatin Calcium (Lipitor) 10 mg PO QHS [facility] Last Admin: 01/10/18 21:30 Dose: 10 mg Clopidogrel Bisulfate (Plavix) 75 mg PO DAILY [facility] Last Admin: 01/11/18 09:18 Dose: 75 mg Dextrose (D50w Syringe) 0 gm IV X1 PRN; Protocol PRN Reason: Hypoglycemia Duloxetine HCl (Cymbalta) 60 mg PO DAILY [facility] Last Admin: 01/11/18 09:18 Dose: 60 mg Enoxaparin Sodium (Lovenox) 30 mg SC DAILY@1000 [facility] Last Admin: 01/11/18 09:18 Dose: 30 mg Gabapentin (Neurontin) 600 mg PO TIDCM [facility] Last Admin: 01/11/18 09:18 Dose: 600 mg Glucagon () 1 mg IM .X1 PRN PRN Reason: Hypoglycemia Guaifenesin (Humibid Dm) 1 tablet PO BID [facility] Last Admin: 01/11/18 09:18 Dose: 1 tablet Levofloxacin (Levaquin Iv) 250 mg in 50 mls @ 50 mls/hr IV Q24 [facility] Last Admin: 01/11/18 09:26 Dose: 50 mls/hr Insulin Glargine (Lantus (Bkc)) 80 units SC BID [facility] Insulin Human Lispro (Humalog Kwikpen (Bkc)) 0 unit SQ ACHS [facility]; Protocol Last Admin: 01/11/18 06:53 Dose: Not Given Magnesium Hydroxide (Milk Of Magnesia) 30 ml PO DAILY PRN PRN PRN Reason: Constipation Prednisone () 40 mg PO DAILY@0800 [facility]; Taper Stop: 01/24/18 07:59 Psyllium Hydrophilic Mucilloid (Metamucil) 1 packet PO DAILY PRN PRN PRN Reason: CONSTIPATION Sodium Chloride () 5 - 30 ml IV UD PRN PRN Reason: SALINE FLUSH Last Admin: 01/11/18 09:27 Dose: 10 ml Sodium Chloride ([place] Nasal [place]) 1 spray NASAL TID PRN PRN PRN Reason: NASAL DRYNESS Medical Necessity - Tobacco Use Smoking Status: Former smoker Assessment/Plan All Active Problems Acute kidney injury (Acute) Acute renal injury due to circulatory failure (Acute) Morbid obesity (Acute) Asthma (Acute) Community acquired bacterial pneumonia (Acute) 52y/o female with PMHx of morbid obesity, Hypertension, Asthma/COPD comes in with SOB and wheezing 1. Acute hypoxic respiratory failure secondary to community-acquired pne umonia/acute COPD exacerbation/Acute Rhinovirus bronchitis, minimally improved, remains on 2 L of oxygen, will continue to encourage incentive spirometer, wean off oxygen. 2. Community acquired pneumonia, urine streptococcal and legionella antigen negative, on Levaquin, will switch to oral levaquin for 5 more days, making a total of 7 days. 3. Hypertension, controlled, on atenolol, will continue to monitor. 4. Type 2 DM, on insulin, BS now uncontrolled, previously had episodes of hypoglycemia, home Lantus and pre-meal Lispro was withheld, Will now resume home insulin, continue with accucheks and ISS. 5. Acute COPD exacerbation secondary to acute rhinovirus infection, was on Solumedrol 40mg IV q8, will switch to oral prednisone, will continue with breathing treatment 6. Morbid Obesity, BMI 47.6, diet and exercises recommended. 7. CKD stage 3, POA, unclear if she had CARYN as baseline creatinine is unknown, will continue to monitor. 8. DVT PPx- Lovenox SC Code Visit Inpatient E&M: 53734 Subs Hosp L2
[2018-01-11 11:05] LABS: Bedside Glucose 487 mg/dL (70-110)
[2018-01-11 11:30] LABS: Anion Gap 9 (5-15); BUN 36 mg/dL (7-18); BUN/Creat Ratio 19.1 RATIO (10-20); Calcium,Total 7.7 mg/dL (8.5-10.1); Chloride 98 mmol/L (98-107); Creatinine, Serum 1.88 mg/dL (0.55-1.02); EST Glomerular Filtration Rate 30 mL/min (>60); Est Glom Filt Rate - Afr Amer 36 mL/min (>60); Estimated Creatinine Clearance 27.69 ml/min; Potassium 4.3 mmol/L (3.5-5.1); Sodium Level 131 mmol/L (136-145)
--- NOTE | 2018-01-11 11:50 | CASEMGMT ---
RN TATUM Face to Face with patient for initial transition planning/care coordination assessment. RN CM introduced self and role at [facility]. Patient lying in bed, alert and oriented. Patient willing to participate in assessment and is able to answer all questions appropriately. Care providers, pharmacy, and demographics verified. Patient wishes to discharge home, denies need for home health at this time. Patient states she has no further needs or concerns at this time. CM to follow for discharge planning needs that may arise. PCP: Charlene Specialists: See mannequin maker, flatlock sewing machine operator, and pain specialist. Preferred Pharmacy: [facility] Insurance: [facility] Prescription Benefit: [facility] Living Will/HPOA: No, declined information LNOK: Sister Living Arrangements: Patient lives in 2 story house. Will be visiting sister after discharged from hospital Transportation: Self DME/HHC: [facility]. Disposition Plan: Patient to discharge to sister's house with family support and follow-up plans in place. Akiko NICOLE, RN, CM
[2018-01-11 16:01] LABS: Bedside Glucose > 500 mg/dL (70-110)
[2018-01-11] MEDS: Insulin Lispro 100 UNIT/ML INSULN.PEN 20 UNIT SC (16:29)
[2018-01-11] MEDS: 0.9% Normal Saline 1,000 ML 100 ML IV ×2 (16:32→23:30)
[2018-01-11 16:58] LABS: Glucose 553 mg/dL (74-106)
[2018-01-11] MEDS: Atorvastatin Calcium 10 MG Tablet PO (21:58)
[2018-01-11] MEDS: Insulin Lispro 100 UNIT/ML INSULN.PEN SQ (21:58)
[2018-01-11 22:15] LABS: Bedside Glucose 333 mg/dL (70-110)
[2018-01-12] VITALS (10 sets, daily range): BP systolic 137–173; BP diastolic 74–87; PULSE 66–80; RESP 17–22; TEMP 36.5–36.7; O2SAT 95–98
[2018-01-12] MEDS: levoFLOXacin 250 MG Tablet PO (05:50)
[2018-01-12] MEDS: Dextrose 50%-Water 25 GM/50 ML DISP.SYRIN IV (07:35)
[2018-01-12 07:43] LABS: Absolute Lymphocyte Count 3.18 X10^3/ul (0.83-4.51); Absolute Neutrophil Count 12.8 X10^3/uL (2.0-7.7); Basophil# 0.02 X10^3/uL; Basophil% 0.1 % (0-1); Eosinophil# 0.45 X10^3/uL; Eosinophils% 2.5 % (0-5); Hematocrit 36.7 % (37-47); Hemoglobin 12.2 g/dl (12.0-15.0); Lymphocyte # 3.18 X10^3/ul (4.0); Lymphocyte % 17.9 % (19-41); Mean Corp Hgb Conc 33.2 g/gl (32-36); Mean Corpuscular Hgb 29.5 pg (27.0-32.0); Mean Corpuscular Volume 88.9 fL (81-99); Mean Platelet Vol. 12.4 fl (6.2-12.0); Monocyte% 7.3 % (0-10); Neutrophil # 12.75 X10^3/uL (2.7-7.7); Neutrophil % 71.8 % (47-70); Platelet Count 330 K/mm3 (150-450); RBC Distribution Width CV 12.8 % (11.6-14.6); RBC Distribution Width SD 40.7 fl (35.1-43.9); Red Blood Count 4.13 M/mm3 (4.2-5.4); White Blood Count 17.8 K/mm3 (4.4-11.0)
[2018-01-12] MEDS: Ipratropium/Albuterol Sulfate 3 ML AMPUL.NEB INHALATION ×4 (07:45→22:27)
[2018-01-12 07:46] LABS: POSITIVE COUNT NO; POSITIVE DIFFERENTIAL NO; POSITIVE MORPHOLOGY NO
[2018-01-12 08:01] LABS: Anion Gap 10 (5-15); BUN 45 mg/dL (7-18); BUN/Creat Ratio 24.1 RATIO (10-20); Chloride 101 mmol/L (98-107); Creatinine, Serum 1.87 mg/dL (0.55-1.02); EST Glomerular Filtration Rate 30 mL/min (>60); Est Glom Filt Rate - Afr Amer 36 mL/min (>60); Estimated Creatinine Clearance 27.83 ml/min; Glucose 39 mg/dL (74-106); Potassium 3.1 mmol/L (3.5-5.1); Sodium Level 138 mmol/L (136-145)
--- NOTE | 2018-01-12 08:33 | PN_ITS ---
Patient Problems: Active and Suspected Problems Acute kidney injury (Acute) Acute renal injury due to circulatory failure (Acute) Morbid obesity (Acute) Asthma (Acute) Community acquired bacterial pneumonia (Acute) Subjective: She was seen and examined. She had an episode of hypoglycemia in the morning, treated 2 times with orange juice. Given D50. Blood sugars were running very high for the most part of yesterday. Vitals/I&O's: Vital Signs Temp Pulse Resp BP Pulse Ox 98 F 71 17 137/82 H 98 01/12/18 02:10 01/12/18 07:40 01/12/18 07:40 01/12/18 02:10 01/12/18 08:26 Oxygen Flow Rate (L/min) 2 Oxygen Delivery Method Nasal Cannula Weight: 118.1 kg Body Mass Index (BMI) 47.6 Intake and Output for Last 24 Hours 01/10/18 01/11/18 01/12/18 23:59 23:59 23:59 Intake Total 700 / 700 870 / 870 2271 / 2271 Balance 700 / 700 870 / 870 2271 / 2271 Microbiology Past 72 Hours 01/10/18 13:50 Urine, Clean Catch Legionella Antigen - Final 01/10/18 13:50 Urine, Clean Catch Streptococcus pneumoniae Antigen (M - Final 01/10/18 10:40 Mucosa - Nasopharyngeal Respiratory Panel (PCR) - Final Rhinovirus Laboratory Results 01/11/18 07:28: Sodium 131 L, Potassium 4.3, Chloride 98, Carbon Dioxide 24.0, Anion Gap 9, BUN 36 H, Creatinine 1.88 H, Estim Creat Clear Calc 27.69, Est GFR (MDRD) Af Amer 36 L, Est GFR (MDRD) Non-Af 30 L, BUN/Creatinine Ratio 19.1, Glucose 456 H*, Calcium 7.7 L 01/11/18 07:28: Sodium Cancelled, Potassium Cancelled, Chloride Cancelled, Carbon Dioxide Cancelled, Anion Gap Cancelled, BUN Cancelled, Creatinine Cancelled, Estim Creat Clear Calc Cancelled, Est GFR (MDRD) Af Amer Cancelled, Est GFR (MDRD) Non-Af Cancelled, BUN/Creatinine Ratio Cancelled, Glucose Cancelled, Calcium Cancelled 01/11/18 10:51: POC Glucose 487 H* 01/11/18 15:57: POC Glucose > 500 H* 01/11/18 16:22: Glucose 553 H* 01/11/18 21:53: POC Glucose 333 H 01/12/18 07:19: WBC 17.8 H, RBC 4.13 L, Hgb 12.2, Hct 36.7 L, MCV 88.9, MCH 29.5, MCHC 33.2, RDW 12.8, RDW Differential 40.7, Plt Count 330, MPV 12.4 H, Immature Gran % (Auto) 0.400, Neut % (Auto) 71.8 H, Lymph % (Auto) 17.9 L, [place] % (Auto) 7.3, Eos % (Auto) 2.5, Baso % (Auto) 0.1, Absolute Neuts (auto) 12.8 H, Absolute Lymphs (auto) 3.18, Total Counted Not Reportable 01/12/18 07:19: Sodium 138, Potassium 3.1 L, Chloride 101, Carbon Dioxide 27.0, Anion Gap 10, BUN 45 H, Creatinine 1.87 H, Estim Creat Clear Calc 27.83, Est GFR (MDRD) Af Amer 36 L, Est GFR (MDRD) Non-Af 30 L, BUN/Creatinine Ratio 24.1 H, Glucose 39 L*, Calcium 8.0 L Current Medications Hydrocodone Bitart/Acetaminophen ([place] 5mg-325mg) 1 tablet PO Q12H PRN PRN PRN Reason: SEVERE PAIN (6-10/10) Last Admin: 01/11/18 05:05 Dose: 1 tablet Albuterol Sulfate (Ventolin Aerosols) 2.5 mg INHALATION Q2H PRN PRN PRN Reason: SOB &/OR WHEEZING Albuterol/Ipratropium (Duoneb) 3 ml INHALATION Q4H.RT [facility] Last Admin: 01/12/18 07:45 Dose: 3 ml Aspirin (Aspirin, Baby) 81 mg PO DAILY@0800 [facility] Last Admin: 01/11/18 09:17 Dose: 81 mg Atenolol (Tenormin (Beta Ángela)) 100 mg PO DAILY [facility] Last Admin: 01/11/18 09:18 Dose: 100 mg Atorvastatin Calcium (Lipitor) 10 mg PO QHS [facility] Last Admin: 01/11/18 21:58 Dose: 10 mg Clopidogrel Bisulfate (Plavix) 75 mg PO DAILY [facility] Last Admin: 01/11/18 09:18 Dose: 75 mg Dextrose (D50w Syringe) 0 gm IV X1 PRN; Protocol PRN Reason: Hypoglycemia Duloxetine HCl (Cymbalta) 60 mg PO DAILY [facility] Last Admin: 01/11/18 09:18 Dose: 60 mg Enoxaparin Sodium (Lovenox) 30 mg SC DAILY@1000 [facility] Last Admin: 01/11/18 09:18 Dose: 30 mg Gabapentin (Neurontin) 600 mg PO TIDCM [facility] Last Admin: 01/11/18 16:25 Dose: 600 mg Glucagon () 1 mg IM .X1 PRN PRN Reason: Hypoglycemia Guaifenesin (Humibid Dm) 1 tablet PO BID [facility] Last Admin: 01/11/18 22:04 Dose: 1 tablet Insulin Glargine (Lantus (Bkc)) 80 units SC BID [facility] Last Admin: 01/11/18 21:57 Dose: 80 u Insulin Human Lispro (Humalog Kwikpen (Bk)) 0 unit SQ ACHS [facility]; Protocol Last Admin: 01/12/18 07:11 Dose: Not Given Levofloxacin (Levaquin Tablet) 250 mg PO DAILY@0600 [facility] Stop: 01/16/18 06:01 Last Admin: 01/12/18 05:50 Dose: 250 mg Magnesium Hydroxide (Milk Of Magnesia) 30 ml PO DAILY PRN PRN PRN Reason: Constipation Prednisone () 40 mg PO DAILY@0800 [facility]; Taper Stop: 01/24/18 07:59 Psyllium Hydrophilic Mucilloid (Metamucil) 1 packet PO DAILY PRN PRN PRN Reason: CONSTIPATION Sodium Chloride () 5 - 30 ml IV UD PRN PRN Reason: SALINE FLUSH Last Admin: 01/11/18 09:27 Dose: 10 ml Sodium Chloride ([place] Nasal [place]) 1 spray NASAL TID PRN PRN PRN Reason: NASAL DRYNESS Medical Necessity - Tobacco Use Smoking Status: Former smoker Assessment/Plan All Active Problems Acute kidney injury (Acute) Acute renal injury due to circulatory failure (Acute) Morbid obesity (Acute) Asthma (Acute) Community acquired bacterial pneumonia (Acute) 52y/o female with PMHx of morbid obesity, Hypertension, Asthma/COPD comes in with SOB and wheezing 1. Episodes of hypoglycemia, insulin held this morning, hypoglycemia treated, will continue to monitor 2. Acute hypoxic respiratory failure secondary to community-acquired pneumonia/acute COPD exacerbation/Acute Rhinovirus bronchitis, resolving, SPO2 is 97% on room air, will assess for ambulatory oxygen requirements 3. Community acquired pneumonia, urine streptococcal and legionella antigen negative, on oral Levaquin 4. Hypertension, controlled, on atenolol, will continue to monitor. 5. Acute COPD exacerbation secondary to acute rhinovirus infection, improving on prednisone taper 6. Morbid Obesity, BMI 47.6, diet and exercises recommended. 7. CKD stage 3, POA, unclear if she had CARYN as baseline creatinine is unknown, will continue to monitor. 8. DVT PPx- Lovenox SC Code Visit Inpatient E&M: 20484 Subs Hosp L2
[2018-01-12] MEDS: predniSONE 10 MG Tablet 40 MG PO (08:48)
[2018-01-12] MEDS: Aspirin 81 MG TAB.CHEW PO (08:48)
[2018-01-12] MEDS: guaiFENesin/D-Methorphan TAB.SR.12H 1 TABLET PO ×2 (08:48→21:35)
[2018-01-12] MEDS: Gabapentin 600 MG Tablet PO ×3 (08:49→15:50)
[2018-01-12] MEDS: DULoxetine Hcl 60 MG Capsule PO (08:49)
[2018-01-12] MEDS: Atenolol 100 MG Tablet PO (08:49)
[2018-01-12 08:56] LABS: Bedside Glucose 92 mg/dL (70-110)
[2018-01-12 08:56] LABS: Bedside Glucose 129 mg/dL (70-110)
[2018-01-12 08:56] LABS: Bedside Glucose 44 mg/dL (70-110)
[2018-01-12] MEDS: Enoxaparin 30 MG/0.3 ML Syringe SC (10:28)
[2018-01-12] MEDS: Clopidogrel Bisulfate 75 MG Tablet PO (10:28)
[2018-01-12 12:00] LABS: Bedside Glucose 81 mg/dL (70-110)
[2018-01-12] MEDS: Insulin Lispro 100 UNIT/ML INSULN.PEN SQ ×2 (15:50→21:36)
[2018-01-12 16:06] LABS: Bedside Glucose 179 mg/dL (70-110)
[2018-01-12] MEDS: HYDROcodone Bitartrate/Apap 5/325 Tablet PO (21:29)
[2018-01-12] MEDS: Atorvastatin Calcium 10 MG Tablet PO (21:32)
[2018-01-12 23:56] LABS: Bedside Glucose 332 mg/dL (70-110)
[2018-01-13] MEDS: Ipratropium/Albuterol Sulfate 3 ML AMPUL.NEB INHALATION ×2 (02:45→10:29)
[2018-01-13 02:46] VITALS: PULSE 75; RESP 18
[2018-01-13 04:10] VITALS: BP 130/67; PULSE 87; RESP 18; TEMP 36.6; O2SAT 98
[2018-01-13 04:15] VITALS: PULSE 87; RESP 20; O2SAT 98
[2018-01-13] MEDS: levoFLOXacin 250 MG Tablet PO (06:50)
[2018-01-13] MEDS: Insulin Lispro 100 UNIT/ML INSULN.PEN SQ ×2 (06:53→10:34)
[2018-01-13 07:00] LABS: Bedside Glucose 340 mg/dL (70-110)
[2018-01-13 07:30] VITALS: O2SAT 94
[2018-01-13 08:18] LABS: Absolute Lymphocyte Count 2.04 X10^3/ul (0.83-4.51); Absolute Neutrophil Count 7.3 X10^3/uL (2.0-7.7); Basophil# 0.02 X10^3/uL; Basophil% 0.2 % (0-1); Eosinophil# 0.16 X10^3/uL; Eosinophils% 1.6 % (0-5); Hematocrit 34.9 % (37-47); Hemoglobin 11.3 g/dl (12.0-15.0); Lymphocyte # 2.04 X10^3/ul (4.0); Lymphocyte % 19.8 % (19-41); Mean Corp Hgb Conc 32.4 g/gl (32-36); Mean Corpuscular Hgb 29.1 pg (27.0-32.0); Mean Corpuscular Volume 89.9 fL (81-99); Mean Platelet Vol. 12.6 fl (6.2-12.0); Monocyte# 0.64 X10^3/uL; Monocyte% 6.2 % (0-10); Neutrophil # 7.32 X10^3/uL (2.7-7.7); Neutrophil % 70.9 % (47-70); POSITIVE COUNT NO; POSITIVE DIFFERENTIAL NO; POSITIVE MORPHOLOGY NO; Platelet Count 231 K/mm3 (150-450); RBC Distribution Width CV 12.7 % (11.6-14.6); RBC Distribution Width SD 40.9 fl (35.1-43.9); Red Blood Count 3.88 M/mm3 (4.2-5.4); White Blood Count 10.3 K/mm3 (4.4-11.0)
[2018-01-13 08:35] LABS: Anion Gap 8 (5-15); BUN 51 mg/dL (7-18); BUN/Creat Ratio 26.8 RATIO (10-20); Calcium,Total 7.6 mg/dL (8.5-10.1); Chloride 103 mmol/L (98-107); EST Glomerular Filtration Rate 30 mL/min (>60); Est Glom Filt Rate - Afr Amer 36 mL/min (>60); Estimated Creatinine Clearance 27.39 ml/min; Glucose 258 mg/dL (74-106); Potassium 3.8 mmol/L (3.5-5.1); Sodium Level 136 mmol/L (136-145)
[2018-01-13 10:10] VITALS: BP 162/82; PULSE 71; RESP 18; TEMP 36.5; O2SAT 95
[2018-01-13] MEDS: DULoxetine Hcl 60 MG Capsule PO (10:13)
[2018-01-13] MEDS: guaiFENesin/D-Methorphan TAB.SR.12H 1 TABLET PO (10:13)
[2018-01-13] MEDS: Clopidogrel Bisulfate 75 MG Tablet PO (10:14)
[2018-01-13] MEDS: Enoxaparin 30 MG/0.3 ML Syringe SC (10:20)
[2018-01-13] MEDS: Gabapentin 600 MG Tablet PO ×2 (10:22→12:19)
[2018-01-13] MEDS: predniSONE 10 MG Tablet 40 MG PO (10:22)
[2018-01-13] MEDS: Atenolol 100 MG Tablet PO (10:22)
[2018-01-13] MEDS: Aspirin 81 MG TAB.CHEW PO (10:22)
[2018-01-13 10:48] VITALS: PULSE 71; RESP 17
[2018-01-13 10:50] LABS: Bedside Glucose 266 mg/dL (70-110)
--- NOTE | 2018-01-13 11:52 | DCINST_ITS ---
- Discharge Diagnoses Current Active Problems: Current Active and Chronic Problems Acute kidney injury (Acute) Acute renal injury due to circulatory failure (Acute) Morbid obesity (Acute) Hypertension (Chronic) Asthma (Acute) Community acquired bacterial pneumonia (Acute) Reason(s) for Visit for Discharge Instructions: Shortness of breath You will use the following diet at home:: Calorie/Carbohydrate Controlled (specify 1200, 1400, etc), Cardiac Your food should be the consistency of: Regular Your liquids should be the consistency of: Regular/Thin Discharge Activity: Return to Normal Activity Additional Instructions: Note the changes to your BP and insulin medications. Monitor your BP and Blood sugars and show a log of your blood sugars to your primary doctor. You should slowly increase your Lantus by 2 units every 2-3 days if your blood sugar remains above 200. Complete your antibiotics as prescribed. Discuss your BP medications with your primary doctor. You have been started on a lower dose of Lisinopril; at 20mg daily. You need repeat blood work within 1 week, preferably. Allergies/Adverse Reactions: Allergies No Known Allergies Allergy (Verified 01/09/18 14:24) Medications to take at Discharge Aspirin [Aspirin, Baby] 81 mg PO DAILY 01/09/18 Atenolol [Tenormin] 100 mg PO DAILY 01/09/18 Clopidogrel Bisulfate [Plavix] 75 mg PO DAILY 01/09/18 Duloxetine Hcl [Cymbalta] 60 mg PO DAILY 01/09/18 Furosemide [Lasix] 20 mg PO DAILY 01/09/18 Gabapentin [Gralise] 600 mg PO TID 01/09/18 Hydrocodone/Acetaminophen [Hydrocodone-Acetamin 7.5-325] 1 tab PO Q12H PRN PRN 01/09/18 Lovastatin [Mevacor] 40 mg PO DAILY 01/09/18 Vitamin D 4,000 units PO BID 01/09/18 Guaifenesin/D-Methorphan Hb [Humibid Dm] 1 tab PO BID #20 tab.sr.12h 01/13/18 Insulin Glargine [Lantus SoloStar Pen] 5 units SC BID pen 01/13/18 Ipratropium/Albuterol Sulfate [Duoneb] 3 ml INHALATION Q4H.RT ampul.neb 01/13/18 Lisinopril [Zestril] 20 mg PO DAILY #30 tab 01/13/18 Prednisone 10 mg PO UD #30 tab 01/13/18 levoFLOXacin tablet [Levaquin tablet] 250 mg PO DAILY@0600 #4 tab 01/13/18 The following prescriptions were given: levoFLOXacin tablet [Levaquin tablet] 250 mg PO DAILY@0600 #4 tab Lisinopril [Zestril] 20 mg PO DAILY #30 tab Prednisone 10 mg PO UD #30 tab Guaifenesin/D-Methorphan Hb [Humibid Dm] 1 tab PO BID #20 tab.sr.12h Orders to be completed after discharge: Basic Metabolic Profile (BMP) Time Frame: 1 Week, Location: Laboratory Basic Metabolic Profile (BMP) Time Frame: 1 Week, Location: Laboratory Primary Care Physician: [facility] Doctor,Out of [Primary Care Provider] - Please follow up with your Primary Care Physician in: within 2 weeks, preferably in 1 week Test Results: Test results from this visit will be discussed in further detail at your follow- up appointment, if applicable. When: Follow-up with your pulmologist to have lung function testing Proposed Discharge Date: 01/13/18
--- NOTE | 2018-01-13 11:52 | PCM.DC.SUM ---
Discharge Date and Diagnosis Date of Admission: 01/09/18 Date of Discharge: 01/13/18 - Primary Discharge Diagnosis Active and Suspected Problems Acute kidney injury (Acute) Acute renal injury due to circulatory failure (Acute) Morbid obesity (Acute) Asthma (Acute) Community acquired bacterial pneumonia (Acute) Acute COPD exacerbation Acute respiratory insufficiency Hypoglycemia - Secondary Discharge Diagnosis Chronic Problems Hypertension (Chronic) Hospital Course and Treatment Imaging Results: Clinical Impression(s) from Imaging Studies Chest X-Ray 01/09/18 15:13 IMPRESSION: Perihilar opacities may be secondary to edema and/or pneumonia. Indeterminate rounded right infrahilar opacity, again this may be secondary to edema and/or pneumonia however cannot exclude underlying mass, consider CT for further characterization. Electronically Signed: Micaela Burton MD at 16:24 EDT Tel , Service support , Chest CT 01/09/18 17:46 IMPRESSION: Right greater than left airspace opacification likely inflammatory/infectious in nature. Mild mediastinal lymphadenopathy and lymphoid hyperplasia suspected. Cardiac enlargement, coronary artery disease, stent placement, arteriosclerosis and mild degenerative changes. Right greater than left small pleural effusions. Electronically Signed: Enriqueta Talbert MD at 6:50 EDT , Service support , None Operations: None Procedures: None Summary of Care Provided: The patient is a 52 year old F with past medical history of morbid obesity, hypertension, asthma/COPD who comes in with complaints of shortness of breath and wheezes. Chest x-ray on admission had shown perihilar opacity. CT scan of the chest showed bilateral infiltrates more on the right than the left with bilateral pleural effusions. Patient was managed as bilateral community-acquired pneumonia, urine for streptococcal and Legionella antigen was negative. Patient was started on IV Levaquin. She was also managed as acute COPD exacerbation. Respiratory panel was positive for rhinovirus. Managed on IV Solu-Medrol and eventually switched to p.o. prednisone. Patient improved slowly. Had hyperglycemia secondary to steroids. Her home insulin regimen was initially held, and when resumed patient developed hypoglycemia. Changes were made to patient's insulin and she was discharged home on very low Lantus 5 units twice daily with insulin sliding scale and asked to follow-up with her primary for slow titration of her Lantus. Her home lisinopril dose of 80 mg twice daily was also stopped, discharged on 20 mg p.o. daily and asked her to discuss her blood pressure pills with her primary care doctor. 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 Subjective: Patient was seen and examined. Feels much better. Been off oxygen. Did not qualify for ambulatory oxygen. Denies any fever or chills. Still coughing with whitish sputum production. - Physical Exam General: Alert, Oriented x3, Cooperative, No apparent distress, - - Obese, on room air HEENT: Atraumatic, PERRLA, EOMI, Normocephalic Oral: Moist Mucosa - On room air Neck: Supple Lungs: Diminished, Rhonchi - scattered Cardiovascular: Regular rate, Regular Rhythm, Normal S1, Normal S2, No murmurs Abdomen: Bowel Sounds Present, Soft, Non Tender, Non-Distended, No Hepato-splenomegaly, Obese Extremities: No edema Skin: No rashes, No breakdown Musculoskeletal: No Tenderness to Palpation of Joints or Extremities Lymphatic: No Cervical, Supraclavicular, or Inguinal Adenopathy Neurological: Cranial nerves II-XII grossly intact, Neuro grossly intact Psych/Mental Status: Normal Affect, Appropriate Vital Signs Temp Pulse Resp BP Pulse Ox 97.7 F L 71 17 162/82 H 95 01/13/18 10:10 01/13/18 10:48 01/13/18 10:48 01/13/18 10:10 01/13/18 10:10 Oxygen Flow Rate (L/min) 2 Oxygen Delivery Method Room Air Weight: 118.1 kg Body Mass Index (BMI) 47.6 Intake and Output for Last 24 Hours 01/11/18 01/12/18 01/13/18 23:59 23:59 23:59 Intake Total 870 / 870 3321 / 3321 730 / 730 Balance 870 / 870 3321 / 3321 730 / 730 Microbiology Past 72 Hours 01/10/18 13:50 Legionella Antigen - Final Urine, Clean Catch Streptococcus pneumoniae Antigen (M - Final 01/10/18 10:40 Respiratory Panel (PCR) - Final Mucosa - Nasopharyngeal Rhinovirus Laboratory Tests Past 24 Hrs 01/13/18 01/13/18 07:56 07:56 WBC 10.3 RBC 3.88 L Hgb 11.3 L Hct 34.9 L MCV 89.9 MCH 29.1 MCHC 32.4 RDW 12.7 RDW Differential 40.9 Plt Count 231 MPV 12.6 H Immature Gran % (Auto) 1.300 H Neut % (Auto) 70.9 H Lymph % (Auto) 19.8 [place] % (Auto) 6.2 Eos % (Auto) 1.6 Baso % (Auto) 0.2 Absolute Neuts (auto) 7.3 Absolute Lymphs (auto) 2.04 Total Counted Not Reportable Sodium 136 Potassium 3.8 Chloride 103 Carbon Dioxide 25.0 Anion Gap 8 BUN 51 H Creatinine 1.90 H Estim Creat Clear Calc 27.39 Est GFR (MDRD) Af Amer 36 L Est GFR (MDRD) Non-Af 30 L BUN/Creatinine Ratio 26.8 H Glucose 258 H Calcium 7.6 L POC Glucose 01/13/18 01/13/18 01/12/18 10:32 06:52 21:34 POC Glucose 266 H 340 H 332 H 01/12/18 01/12/18 15:47 11:32 POC Glucose 179 H 81 Discharge Diet: Low fat/ Low Cholesterol, 2000 mg Sodium Diet, Carb Control Diet Discharge Activity: Return to Normal Activity Home Medications: Medications to take at Discharge Aspirin [Aspirin, Baby] 81 mg PO DAILY 01/09/18 Atenolol [Tenormin] 100 mg PO DAILY 01/09/18 Clopidogrel Bisulfate [Plavix] 75 mg PO DAILY 01/09/18 Duloxetine Hcl [Cymbalta] 60 mg PO DAILY 01/09/18 Furosemide [Lasix] 20 mg PO DAILY 01/09/18 Gabapentin [Gralise] 600 mg PO TID 01/09/18 Hydrocodone/Acetaminophen [Hydrocodone-Acetamin 7.5-325] 1 tab PO Q12H PRN PRN 01/09/18 Lovastatin [Mevacor] 40 mg PO DAILY 01/09/18 Vitamin D 4,000 units PO BID 01/09/18 Guaifenesin/D-Methorphan Hb [Humibid Dm] 1 tab PO BID #20 tab.sr.12h 10/17/18 Insulin Glargine [Lantus SoloStar Pen] 5 units SC BID pen 01/13/18 Ipratropium/Albuterol Sulfate [Duoneb] 3 ml INHALATION Q4H.RT ampul.neb 01/13/18 Lisinopril [Zestril] 20 mg PO DAILY #30 tab 01/13/18 Prednisone 10 mg PO UD #30 tab 01/13/18 levoFLOXacin tablet [Levaquin tablet] 250 mg PO DAILY@0600 #4 tab 01/13/18 Following Prescrptions Were Given to Patient: levoFLOXacin tablet [Levaquin tablet] 250 mg PO DAILY@0600 #4 tab Lisinopril [Zestril] 20 mg PO DAILY #30 tab Prednisone 10 mg PO UD #30 tab Guaifenesin/D-Methorphan Hb [Humibid Dm] 1 tab PO BID #20 tab.sr.12h Other Amb Orders: Basic Metabolic Profile (BMP) Time Frame: 1 Week, Location: Laboratory Basic Metabolic Profile (BMP) Time Frame: 1 Week, Location: Laboratory Primary Care Physician: [facility] Doctor,Out of [Primary Care Provider] - Please follow up with your Primary Care Physician in: within 2 weeks, preferably in 1 week When: Follow-up with your pulmologist to have lung function testing Disposition: Home Minutes spent on discharge:: 40 Patient Condition:: Stable Medical Necessity - Tobacco Use Smoking Status: Former smoker Tobacco Use: Non-smoker Meaningful Use Info Meaningful Use Diagnoses (Choose all that apply): None applicable Code Visit Inpatient E&M: 89476 Disch Hosp
[2018-01-13] MEDS: Lisinopril 20 MG Tablet PO (12:19)
== END 2018-01-13 14:50 | disposition home or self-care (01) | DRG 194 ==
LOC: ED 15:38 → MS3 17:10
PROVIDERS: Student in an Organized Health Care Education/Training Program; Admitting Provider Internal Medicine; Emergency Provider Emergency Medicine; Referring Provider Internal Medicine; Visit Provider Internal Medicine
DX: J18.9 Pneumonia, unspecified organism (principal); J44.0 Chronic obstructive pulmonary disease with (acute) lower respiratory infection; Z68.42 Body mass index [BMI] 45.0-49.9, adult; N17.9 Acute kidney failure, unspecified; J44.1 Chronic obstructive pulmonary disease with (acute) exacerbation; I25.10 Atherosclerotic heart disease of native coronary artery without angina pectoris; E66.01 Morbid (severe) obesity due to excess calories; J20.6 Acute bronchitis due to rhinovirus; E11.649 Type 2 diabetes mellitus with hypoglycemia without coma; Z95.5 Presence of coronary angioplasty implant and graft; Z79.4 Long term (current) use of insulin; Z87.891 Personal history of nicotine dependence; R09.02 Hypoxemia
CPT/HCPCS: 36415; 71045; 71250; 80048; 80053; 81001; 82947; 82962; 84484; 85025; 85652; 86140; 87449; 87633; 93005; 94640; 97802; 99283; J7030; A4216

== ENCOUNTER 2018-05-18 18:43 | Inpatient (IN) | payer MEDICARE, MEDICAID, SELFPAY ==
[2018-05-18] VITALS (7 sets, daily range): BP systolic 137–155; BP diastolic 65–89; PULSE 61–72; RESP 19–32; TEMP 36.6–36.8; O2SAT 71–94; BMI 50.8
--- NOTE | 2018-05-18 19:21 | CT_ITS ---
We are attempting to reach Adilson Saldana MD to discuss findings. An addendum with communication details will be sent when the communication is complete. STUDY: CT BRAIN WITHOUT CONTRAST REASON FOR EXAM: Female, 52 years old. Confusion RADIATION DOSAGE (If Supplied By Facility): CTDIvol = ( 44.99 ) mGy, DLP = ( 796.11 ) mGycm TECHNIQUE: Transaxial CT imaging of the brain was performed without administration of intravenous contrast material. Individualized dose optimization techniques were used for this CT. COMPARISON: None. FINDINGS: Normal soft tissue structures. Normal calvarium. Normal size ventricles and extra-axial spaces for the patient's age. There is subtle hypoattenuation within the left posterior temporal frontal and parietal lobes with effacement of cortical sulci suspicious for acute/subacute ischemic infarction in distribution of the left middle cerebral artery. Normal basal ganglia and thalami. Normal brainstem. Normal cerebellum. There is no intracranial hemorrhage. There are no findings of an acute ischemic infarction. Normal visualized paranasal sinuses. CT/Brain/Head without Contrast IMPRESSION: Findings suspicious for acute/subacute ischemic infarct in the left posterior temporal frontal and parietal lobes MRI recommended for more definitive evaluation Electronically Signed: Adilson Parada MD at 20:20 EST , Service support ,
--- NOTE | 2018-05-18 19:22 | EKG12_ITS ---
Test Reason : Blood Pressure : / mmHG Vent. Rate : 070 BPM Atrial Rate : 070 BPM P-R Int : 208 ms QRS Dur : 090 ms QT Int : 384 ms P-R-T Axes : 078 110 -19 degrees QTc Int : 414 ms Normal sinus rhythm Low voltage QRS Left posterior fascicular block Septal infarct , age undetermined Abnormal ECG Confirmed by KRISTINA REYES, CORINE ([id number]), graphics editor DC HOPSON ([id number]) on 05/20/2018 1:30:08 PM Referred By: Clint Solis Confirmed By:CORINE ACEVEDO MD
--- NOTE | 2018-05-18 19:26 | ED.VISSUMM ---
- ER Visit Summary Date of Service: 05/18/18 Chief Complaint: Confusion History of Present Illness: The patient is a 52 F who is confused and her sister is the informant. Reportedly has a history of CAD with prior NV, CHF and 5 cardiac stents. Known insulin-dependent diabetes, sleep apnea and renal insufficiency. Currently on Plavix. Reportedly the patient lives up near [place], [place]. Recently was admitted to the hospital there. Recently discharged last Thursday. Patient was being treated for abdominal wounds. Today her sister caught her she was confused when together when she went to the home the patient was covered in feces. The home was in disarray. She brought her from there back to [place] and to the emergency department. Patient herself is a very limited informant. Physical Examination: Initial blood pressure 133/89. Pulse ox 91% on room air and on oxygen she is in the mid 90s. Patient is obviously confused. Limited informant. HEENT exam pupils are 2 mm bilaterally. Not dilated. Not fixed. No facial trauma. Neck nontender. Lungs clear to auscultation bilaterally. Heart regular rhythm rate about 70. No murmur. Abdomen is obese but soft. She has sores and bruising on her abdominal wall. There is breakdown of the skin. No peritoneal signs. She is moving all 4 extremities. No deformities. Bruising on the extremities. Neurologically she is awake. She has able to answer very limited questions. She is confused. She is moving all 4 extremities. Back is nontender. Test Results: CBC shows elevated white count of 16,000. Hemoglobin of 10.7. No bands. Electrolytes show an anion gap of 17. CO2 of 18. Glucose of 345. Elevated BUN of 58 creatinine 2.73 which are both worse than her baseline. She has no renal insufficiency this is acute on chronic renal injury. Liver enzymes unremarkable. UA is currently pending. Troponin normal. BNP is elevated 574 consistent with CHF. Lactic acid 1.9. EKG is currently pending. Chest x-ray looks like bilateral pulmonary edema cannot rule out a possible infiltrate which is what the radiologist thinks is a possibility also. CT of the brain shows area of density in the left posterior temporal frontal and parietal lobes consistent with ischemic infarct is subacute. There is no acute intracranial bleed. The radiologist and I discussed the CT results. I went over all test results with his sister is in the room. Emergency Department Course and Treatment: Elderly female with confusion on Plavix and recent hospitalization. She required extensive workup and admission. Treatment Plan: Patient be started on IV Lasix for congestive heart failure. Clinically I think that is most likely the case but she will also be started on IV Rocephin and Zithromax for possible pneumonia. Blood cultures have already been obtained. I have the hospitalist on page for admission. Per the sister she is full go. I will discussed with the hospitalist admission to the ICU. Disposition: Admission Impression: Acute confusion with decreased mental status Anticoagulated on Plavix Acute CHF Rule out possible bilateral pneumonia Hypoxia Elevated anion gap Subacute left-sided ischemic stroke Critical care time 35 minutes History of CAD with 5 cardiac stents. History of insulin-dependent diabetes This note was generated with [employer] dictation software. It may contain incorrect words, spelling, and punctuation that were not noted in review of the chart prior to signing ED Disposition - Plan for ED Patient: Referrals: [facility] Doctor,Out of [NON-STAFF] -
--- NOTE | 2018-05-18 19:29 | ED.DCSUM_ITS ---
- ER Visit Summary Date of Service: 05/18/18 Chief Complaint: Confusion History of Present Illness: The patient is a 52 F who is confused and her sister is the informant. Reportedly has a history of CAD with prior KS, CHF and 5 cardiac stents. Known insulin-dependent diabetes, sleep apnea and renal insuff iciency. Currently on Plavix. Reportedly the patient lives up near [place], [place]. Recently was admitted to the hospital there. Recently discharged last Thursday. Patient was being treated for abdominal wounds. Today her sister caught her she was confused when together when she went to the home the patient was covered in feces. The home was in disarray. She brought her from there back to [place] and to the emergency department. Patient herself is a very limited informant. Physical Examination: Initial blood pressure 133/89. Pulse ox 91% on room air and on oxygen she is in the mid 90s. Patient is obviously confused. Limited informant. HEENT exam pupils are 2 mm bilaterally. Not dilated. Not fixed. No facial trauma. Neck nontender. Lungs clear to auscultation bilaterally. Heart regular rhythm rate about 70. No murmur. Abdomen is obese but soft. She has sores and bruising on her abdominal wall. There is breakdown of the skin. No peritoneal signs. She is moving all 4 extremities. No deformities. Bruising on the extremities. Neurologically she is awake. She has able to answer very limited questions. She is confused. She is moving all 4 extremities. Back is nontender. Test Results: CBC shows elevated white count of 16,000. Hemoglobin of 10.7. No bands. Electrolytes show an anion gap of 17. CO2 of 18. Glucose of 345. Elevated BUN of 58 creatinine 2.73 which are both worse than her baseline. She has no renal insufficiency this is acute on chronic renal injury. Liver enzymes unremarkable. UA is currently pending. Troponin normal. BNP is elevated 574 consistent with CHF. Lactic acid 1.9. EKG is currently pending. Chest x-ray looks like bilateral pulmonary edema cannot rule out a possible infiltrate which is what the radiologist thinks is a possibility also. CT of the brain shows area of density in the left posterior temporal frontal and parietal lobes consistent with ischemic infarct is subacute. There is no acute intracranial bleed. The radiologist and I discussed the CT results. I went over all test results with his sister is in the room. Emergency Department Course and Treatment: Elderly female with confusion on Plavix and recent hospitalization. She required extensive workup and admission. Treatment Plan: Patient be started on IV Lasix for congestive heart failure. Clinically I think that is most likely the case but she will also be started on IV Rocephin and Zithromax for possible pneumonia. Blood cultures have already been obtained. I have the hospitalist on page for admission. Per the sister she is full go. I will discussed with the hospitalist admission to the ICU. Disposition: Admission Impression: Acute confusion with decreased mental status Anticoagulated on Plavix Acute CHF Rule out possible bilateral pneumonia Hypoxia Elevated anion gap Subacute left-sided ischemic stroke Critical care time 35 minutes History of CAD with 5 cardiac stents. History of insulin-dependent diabetes This note was generated with [employer] dictation software. It may contain incorrect words, spelling, and punctuation that were not noted in review of the chart prior to signing ED Disposition - Plan for ED Patient: Referrals: [facility] Doctor,Out of [NON-STAFF] -
[2018-05-18 19:38] LABS: Absolute Lymphocyte Count 0.73 X10^3/ul (0.83-4.51); Absolute Neutrophil Count 14.4 X10^3/uL (2.0-7.7); Basophil# 0.01 X10^3/uL; Basophil% 0.1 % (0-1); Eosinophil# 0.04 X10^3/uL; Eosinophils% 0.3 % (0-5); Hematocrit 33.6 % (37-47); Hemoglobin 10.7 g/dl (12.0-15.0); Lymphocyte # 0.73 X10^3/ul (4.0); Lymphocyte % 4.6 % (19-41); Mean Corp Hgb Conc 31.8 g/gl (32-36); Mean Corpuscular Hgb 27.6 pg (27.0-32.0); Mean Corpuscular Volume 86.6 fL (81-99); Mean Platelet Vol. 12.2 fl (6.2-12.0); Monocyte# 0.67 X10^3/uL; Monocyte% 4.2 % (0-10); Neutrophil # 14.35 X10^3/uL (2.7-7.7); Neutrophil % 89.9 % (47-70); Platelet Count 332 K/mm3 (150-450); RBC Distribution Width CV 13.8 % (11.6-14.6); RBC Distribution Width SD 43.4 fl (35.1-43.9); Red Blood Count 3.88 M/mm3 (4.2-5.4)
[2018-05-18 19:39] LABS: POSITIVE COUNT NO; POSITIVE DIFFERENTIAL NO; POSITIVE MORPHOLOGY NO
[2018-05-18 19:45] LABS: International Normalized Ratio 1.2; Prothrombin Time (Protime)PT. 15.5 SECONDS (11.7-14.9)
[2018-05-18 19:50] LABS: AST(SGOT) 26 U/L (15-37); Alanine Aminotransfer ALT/SGPT 19 U/L (13-56); Albumin, Serum 1.7 g/dL (3.2-5.0); Alkaline Phosphatase 143 U/L (45-117); Anion Gap 17 (5-15); BUN 58 mg/dL (7-18); BUN/Creat Ratio 21.2 RATIO (10-20); Bilirubin, Direct 0.19 mg/dL (0.00-0.30); Chloride 101 mmol/L (98-107); Creatinine, Serum 2.73 mg/dL (0.55-1.02); EST Glomerular Filtration Rate 19 mL/min (>60); Est Glom Filt Rate - Afr Amer 24 mL/min (>60); Estimated Creatinine Clearance 19.07 ml/min; Globulin 5.2 g/dL (2.2-4.2); Glucose 345 mg/dL (74-106); Potassium 3.9 mmol/L (3.5-5.1); Protein, Total 6.9 g/dL (6.4-8.2); Sodium Level 136 mmol/L (136-145)
[2018-05-18 19:57] LABS: Lactic Acid 1.9 mmol/L (0.4-2.0)
--- NOTE | 2018-05-18 20:00 | RAD_ITS ---
STUDY: X-RAY CHEST REASON FOR EXAM: Female, 52 years old. Confusion TECHNIQUE: Single AP portable view of the chest. Imaging study patient unable to follow commands. COMPARISON: CT chest January 09, 2018 FINDINGS: Similar to the prior study there are multifocal dense areas of groundglass opacity in the right greater than left lung. There is slight blunting of the costophrenic angles. There is moderate cardiac enlargement. Normal mediastinum and kristi. Normal visualized pulmonary arteries. Normal visualized aortic arch and descending thoracic aorta. There are diffuse degenerative changes of the visualized thoracic spine. Normal visualized ribs, clavicles, and shoulders. There is no demonstrated abnormality of the visualized soft tissue structures of the upper abdomen. RAD/Chest 1 View (Portable) IMPRESSION: Multifocal groundglass opacities suspicious for diffuse pneumonia. This is either persistent or recurrent. Small bilateral effusions. Mild to moderate cardiac enlargement. Electronically Signed: Charisse Peterson MD at 20:26 EST Tel , Service support ,
[2018-05-18 20:06] LABS: BNP,B-Type NATRIURETIC PEPTIDE 574.5 pg/mL (0-100)
[2018-05-18 20:06] LABS: Base Excess -10 mmol/L (-2 to +2); Bicarbonate 15.6 mmol/L (22-26); Blood Gas Specimen Type ART; O2 Delivery Device Nasal Can; PO2 60 mmHG (75-100); SITE R Radial; SO2 90 % (95-99); Total Carbon Dioxide 16 mmol/L; pCO2 27.9 mmHg (35-45); pH 7.36 (7.35-7.45)
--- NOTE | 2018-05-18 20:48 | PCM.HP.STD ---
Problem List (1) Acute decompensated heart failure Status: Acute (2) Morbid obesity Status: Chronic (3) Hypertension Status: Chronic (4) Diabetes Status: Chronic History of Present Illness Date of Admission: 05/18/18 Chief Complaint: confusion The patient is a 52 year old F with a significant history of DM, CAD status post stents; hypertension; and neuropathy who presented because of confusion. Her sister realized the patient was confused on the same day of presentation. Per sister patient was confused and was talking about their father as if their father was confused In the past 2 weeks patient was admitted 2 times at [facility], will be back to [place]. For her first admission as she fell; and also she was treated for abdominal wall infection. Second admission she was admitted for flu; pneumonia and congestive heart failure. With her second admission she spent some time at the intensive care unit. Patient was discharge from [facility] about 2-3 days ago. Associated with her symptoms is a diarrhea. At the emergency department patient was found to have radiographic evidence of bilateral lung infiltrates; laboratory evidence of leukocytosis; anemia and anion gap metabolic acidosis; with severely elevated creatinine and BNP. Patient received Lasix and broad-spectrum antibiotics for pneumonia. CT brain was remarkable for acute/subacute ischemic infarction in the distribution of the left middle cerebral artery. Past Medical History Past Medical History (Chronic Problems): Chronic Problems Morbid obesity (Chronic) Hypertension (Chronic) Diabetes (Chronic) Allergies No Known Allergies Allergy (Verified 05/18/18 18:45) Home Medications: Ambulatory Orders Medication Instructions Recorded Aspirin [Aspirin, Baby] 81 mg PO DAILY 01/09/18 Atenolol [Tenormin] 100 mg PO DAILY 01/09/18 Clopidogrel Bisulfate [Plavix] 75 mg PO DAILY 01/09/18 Duloxetine Hcl [Cymbalta] 60 mg PO DAILY 01/09/18 Furosemide [Lasix] 20 mg PO DAILY 01/09/18 Gabapentin [Gralise] 600 mg PO TID 01/09/18 Hydrocodone/Acetaminophen 1 tab PO Q12H PRN PRN 01/09/18 [Hydrocodone-Acetamin 7.5-325] Lovastatin [Mevacor] 40 mg PO DAILY 01/09/18 Vitamin D 4,000 units PO BID 01/09/18 Guaifenesin/D-Methorphan Hb 1 tab PO BID #20 tab.sr.12h 01/13/18 [Humibid Dm] Insulin Glargine [Lantus SoloStar 5 units SC BID pen 01/13/18 Pen] Ipratropium/Albuterol Sulfate 3 ml INHALATION Q4H.RT ampul.neb 01/13/18 [Duoneb] Lisinopril [Zestril] 20 mg PO DAILY #30 tab 01/13/18 levoFLOXacin tablet [Levaquin 250 mg PO DAILY@0600 #4 tab 01/13/18 tablet] Amlodipine [Norvasc] 10 mg PO DAILY 05/18/18 Amoxicillin/Potassium Clav 1 tab PO BID 05/18/18 [Augmentin 875-125 Tablet] Atorvastatin Calcium 40 mg PO 05/18/18 Clonidine HCl [Catapres] 0.1 mg PO BID 05/18/18 Doxycycline Monohydrate 100 mg PO 05/18/18 Duloxetine Hcl [Cymbalta] 30 mg PO DAILY 05/18/18 Hydrochlorothiazide [Hctz] 25 mg PO DAILY 05/18/18 Insulin Lispro [Humalog Kwikpen] 0 unit SQ 05/18/18 Lisinopril [Zestril] 40 mg PO BID 05/18/18 Metoprolol Succinate [Toprol Xl] 100 mg PO 05/18/18 Prednisone 10 mg PO DAILY 05/18/18 Surgical History: - - Coronary stents. Patient is confused and further history cannot be obtained. Lives: With Family Smoking Status: Former smoker Alcohol: None - *Family History Maternal History Items: Diabetes, Heart Disease Paternal History Items: Heart Disease, Hypertension Review of Systems Unable to obtain accurate/complete ROS d/t: Confusion VTE Information - Inpt Only VTE Present on Admission: No VTE Mechan Device Prophylaxis: None VTE Pharm Prophylaxis ordered?: Yes Patient Problems: Active and Suspected Problems Acute decompensated heart failure (Acute) - Physical Exam General: Alert, Confused HEENT: Atraumatic, Normocephalic Neck: Supple, Trachea Midline Lungs: Rales Cardiovascular: Regular rate, No murmurs Abdomen: Bowel Sounds Present, Soft, Non Tender, - Extremities: No edema, Capillary Refill Less than 3 Seconds Skin: - - Multiple wounds on abdomen; erythema in bilateral inguinal folds. Musculoskeletal: No Tenderness to Palpation of Joints or Extremities Neurological: - - Patient is alert but confused and does not follow commands. Psych/Mental Status: Normal Affect, - - Confused conversation. Vital Signs Temp Pulse Resp BP Pulse Ox 97.8 F 61 19 H 149/81 H 91 05/18/18 20:00 05/18/18 20:00 05/18/18 20:00 05/18/18 20:00 05/18/18 20:00 Oxygen Flow Rate (L/min) 6 Oxygen Delivery Method Nasal Cannula Weight: 126.099 kg Body Mass Index (BMI) 50.8 Laboratory Tests Past 24 Hrs 05/18/18 05/18/18 05/18/18 19:20 19:20 19:20 WBC 16.0 H RBC 3.88 L Hgb 10.7 L Hct 33.6 L MCV 86.6 MCH 27.6 MCHC 31.8 L RDW 13.8 RDW Differential 43.4 Plt Count 332 MPV 12.2 H Immature Gran % (Auto) 0.900 Neut % (Auto) 89.9 H Lymph % (Auto) 4.6 L Dickens % (Auto) 4.2 Eos % (Auto) 0.3 Baso % (Auto) 0.1 Absolute Neuts (auto) 14.4 H Absolute Lymphs (auto) 0.73 L Total Counted Not Reportable PT 15.5 H INR 1.2 Specimen Type Sample Site pH Bicarbonate Actual POC Total CO2 Base Excess O2 Saturation ABG pCO2 ABG pO2 Lalito Test O2 Delivery Device Liter Flow Blood Gas Notified Whom Sodium 136 Potassium 3.9 Chloride 101 Carbon Dioxide 18.0 L Anion Gap 17 H BUN 58 H Creatinine 2.73 H Estim Creat Clear Calc 19.07 Est GFR (MDRD) Af Amer 24 L Est GFR (MDRD) Non-Af 19 L BUN/Creatinine Ratio 21.2 H Glucose 345 H Lactic Acid Calcium 8.0 L Total Bilirubin 0.70 Direct Bilirubin 0.19 AST 26 ALT 19 Alkaline Phosphatase 143 H Troponin I 0.040 B-Natriuretic Peptide Total Protein 6.9 Albumin 1.7 L Globulin 5.2 H 05/18/18 05/18/18 05/18/18 19:20 19:20 19:59 WBC RBC Hgb Hct MCV MCH MCHC RDW RDW Differential Plt Count MPV Immature Gran % (Auto) Neut % (Auto) Lymph % (Auto) Dickens % (Auto) Eos % (Auto) Baso % (Auto) Absolute Neuts (auto) Absolute Lymphs (auto) Total Counted PT INR Specimen Type ART Sample Site R Radial pH 7.36 Bicarbonate Actual 15.6 L POC Total CO2 16 Base Excess -10 L O2 Saturation 90 L ABG pCO2 27.9 L ABG pO2 60 L Lalito Test NA O2 Delivery Device Nasal Can Liter Flow 6.0 Blood Gas Notified Whom ED MD Sodium Potassium Chloride Carbon Dioxide Anion Gap BUN Creatinine Estim Creat Clear Calc Est GFR (MDRD) Af Amer Est GFR (MDRD) Non-Af BUN/Creatinine Ratio Glucose Lactic Acid 1.9 Calcium Total Bilirubin Direct Bilirubin AST ALT Alkaline Phosphatase Troponin I B-Natriuretic Peptide 574.5 H Total Protein Albumin Globulin Assessment/Plan All Active Problems Acute kidney injury (Acute) Acute renal injury due to circulatory failure (Acute) Acute decompensated heart failure (Acute) The patient is a 52 year old F with a significant history of DM, CAD status post stents; hypertension; and neuropathy who presented because of confusion; and found to have radiographic evidence of bilateral lung infiltrates; elevated BNP; severely elevated creatinine and a subacute ischemic infarction. Acute congestive heart failure We will admit to a monitored bed on progressive care unit/stepdown Weight on admission to the floor; and then daily Strict I&O's CXR independently reviewed confirms bilateral infiltrates. Emergency department labs reviewed showed BNP of 574.5 Received Lasix 40 mg IV at emergency department. On her home medication list is Lasix 20 mg po daily. Echo ordered to evaluate LVEF and wall motion Monitor electrolytes and renal function Trend blood pressure On home medication list is lisinopril and metoprolol. We will continue patient on lisinopril and metoprolol at this time. Home hydrochlorothiazide continued. Titrate diuretics and heart failure/blood pressure medications with blood pressure. BiPAP was originally ordered but her oxygenation improved so bipap was not started. Patient received ceftriaxone and azithromycin at emergency department for probable pneumonia. Patient with no fever but her white count is elevated. On a home medication list is prednisone which may contribute to elevation of white count. We will continue patient on ceftriaxone and azithromycin. We will get MRSA nasal screen. CARYN on CKD stage III On admission her creatinine was 2.73. Review of old records shows baseline creatinine of about 1.88. Her BUN over creatinine is 21.2. Likely prerenal from cardiorenal syndrome. Lasix as above. Trend BMP. Diarrhea Family was concerned for C. difficile. Will order C. difficile and enteric pathogen panel. CVA Patient with confusion and radiographic evidence of acute/subacute infarction in the middle cerebral artery distribution. PT, OT and ST to evaluate patient Continue aspirin; Plavix and high intensity statin Will order MRI/MRA of head and neck. Diabetes mellitus On admission her blood glucose was not within goal. Basal and correction scale insulin ordered. Accu-Chek q. before meals at bedtime and 2 AM. Adjust insulin regimen as necessary. Neuropathy On Neurontin 600 mg 3 times daily. Because of AK I and confusion we will cut back on the Neurontin dose to 800 mg 3 times daily. Hypertension On presentation her blood pressure was not within goal. Head CT with subacute infarct Clonidine; hydrochlorothiazide; lisinopril and metoprolol continued. Trend blood pressures and adjust blood pressure medication. Abdominal Wounds Bactroban ordered Intertrigo Nystatin powder to abdominal folds. DVT prophylaxis Subcutaneous heparin. Code Visit Inpatient E&M: 39159 Init Hosp L3
[2018-05-18] MEDS: Furosemide 40 MG/4 ML Vial IV (21:04)
[2018-05-18] MEDS: Ceftriaxone 1 GM/50 ML BAG IV (21:06)
--- NOTE | 2018-05-18 21:23 | ED.RN ---
PT CONFUSED, ORIENTED TO SELF ONLY. UNCOOPERATIVE WITH CARE, DIFFICULT TO REDIRECT. PER SISTER PT HAS BEEN CONFUSED FOR SEVERAL MONTHS, WORSE SINCE RECENT DISCHARGE FROM HOSPITAL. SISTER STATES SHE FOUND PT SITTING IN A PILE OF SHIT AT HOME, STATES PT IS UNABLE TO CARE FOR SELF, HOME IS UNSANITARY, A PIG STY. STOOL CLEANED FROM PT'S FACE, HANDS, ABD, LEGS. PT'S ABD HAS VARIOUS AREAS OF EXCORIATION, REDNESS, AND BRUISING.
--- NOTE | 2018-05-18 21:27 | ED.RN ---
PT HAS VARIOUS BRUISES ON EXTREMITIES, FACE. SISTER STATES PT HAS BEEN FALLING AT HOME.
[2018-05-18 21:55] LABS: Bacteria 0 SEEN /hpf (None Seen); Mucous, Urine 0 SEEN /hpf (<or=2+)
[2018-05-18 21:57] LABS: Color, Urine Yellow (Yellow); Glucose, Dipstick 100 mg/dl (Normal); Ketone-Dipstick 5 mg/dl (Negative); Leukocyte Esterase-Dipstick 25 /ul (Negative); Nitrite-Dipstick Negative (Negative); Occult Blood-Urine 50 /ul (Negative); Protein-Dipstick 100 mg/dl (Negative); Specific Gravity, Urine 1.015 (1.002-1.030); Urine Bilirubin Dipstick Negative (Negative); Urine Clarity Sl. Cloudy (Clear); Urine Urobilinogen Normal (Normal)
[2018-05-18 22:11] LABS: Hyaline Cast 0-5 SEEN /lpf (0-5); White Blood Cells 10-25 SEEN /hpf (0-5); Yeast-Urine 1+ /hpf (None Seen)
[2018-05-18 22:12] LABS: Squamous Epithelial Cells - UA 0-5 SEEN /hpf (5-10)
[2018-05-18 22:13] LABS: Red Blood Cells-Urine 0-5 SEEN /hpf (0-5)
[2018-05-19] VITALS (31 sets, daily range): BP systolic 138–166; BP diastolic 64–87; PULSE 62–98; RESP 17–23; TEMP 36.3–36.7; O2SAT 89–98; BMI 49.5
--- NOTE | 2018-05-19 00:05 | NURSING ---
pt is unable to answer questions appropriately at this time. admission questions and past medical questions unable to obtain. sister did not come up to the unit upon admission.
--- NOTE | 2018-05-19 00:24 | MRI_ITS ---
We are attempting to reach ABBY SALAZAR to discuss findings. An addendum with communication details will be sent when the communication is complete. STUDY: MRI BRAIN WITHOUT CONTRAST REASON FOR EXAM: Female, 52 years old. CVA TECHNIQUE: Standardized multiplanar fat and water weighted pulse sequences were obtained. COMPARISON: CT of the brain on May 18, 2018 FINDINGS: Normal size of the ventricles and extra-axial spaces for the patient's age. Minor periventricular white matter ischemic changes are seen however there is extensive gliosis within the left posterior temporal posterior frontal and parietal lobes broadly effacing the cortical sulci and exhibiting restricted diffusion consistent with acute ischemic infarction in the territory of the left middle cerebral artery Normal bilateral basal ganglia. Normal thalami. There is no extra-axial fluid accumulation. Normal flow voids within the major intracranial circulation suggesting patency by spin echo criteria. Normal sella turcica, pituitary gland, infundibular stalk, optic chiasm and hypothalamus. Normal tectal plate and pineal gland. Normal midbrain, alicia and medulla. Normal cerebellum. Normal basal cisterns. Normal bilateral temporal bones. Normal bilateral internal auditory canals. No demonstrated orbital abnormality, within the constraints of a routine brain study. Minor mucosal thickening within the bilateral ethmoid and sphenoid sinuses. Normal calvarium and skull base. Normal visualized soft tissue structures. Normal visualized upper cervical spine. MRI/Brain without Contrast IMPRESSION: Acute ischemic changes within the left posterior temporal, posterior frontal and parietal lobes Electronically Signed: Adilson Parada MD at 16:07 EST , Service support ,
--- NOTE | 2018-05-19 00:24 | NURSING ---
pt unable to follow commands making the NIHSS difficult to complete.
--- NOTE | 2018-05-19 00:24 | ECHOD_ITS ---
Reason For Study: CVA, CHF Procedure This was a 2D Doppler, Color Flow transthoracic echocardiogram. The study was technically difficult. Exam performed portable in patient room. Left Ventricle Normal LV size. Mild concentric left ventricular hypertrophy. Segmental dysfunction with preserved ejection fraction (see wall motion). The estimated ejection fraction is 60 %. There is evidence of diastolic dysfunction. Infero-Basal: Hypokinetic. Right Ventricle Normal RV size. Normal systolic function. Atria Normal left atrium. Normal right atrium. No doppler evidence for ASD. Bubble contrast study negative for right to left interatrial shunt. Mitral Valve There is no mitral annular calcification. Normal mitral valve. Trivial mitral valve insufficiency. Tricuspid Valve Normal tricuspid valve. Mild tricuspid valve insufficiency. Right ventricular systolic pressure estimated to be 43 mmHg. Aortic Valve The aortic valve is not well visualized. Pulmonic Valve The pulmonic valve is not well visualized. Trivial pulmonic valve insufficiency. Great Vessels Normal sized aortic root. Pericardium/Pleural No pericardial effusion. Medication Performed a rapid injection of agitated mix of 9 cc saline and 1cc air to assess for atrial septal defect. MMode/2D Measurements & Calculations LVIDd: 4.7 cm IVSd: 1.4 cm Ao root diam: 3.4 cm LVIDs: 3.1 cm LVPWd: 1.5 cm LA dimension: 3.7 cm FS: 33.1 % LAV(MOD-bp): 45.2 ml LVAd ap4: 38.3 cm2 SV(MOD-sp4): 72.5 ml LAV(MOD-bp) Indexed: 20.9 ml/m2 EDV(MOD-sp4): 141.8 ml LAV(MOD-sp2): 54.2 ml EDV(sp4-el): 147.7 ml LAV(MOD-sp4): 37.2 ml LVAs ap4: 23.8 cm2 ESV(MOD-sp4): 69.3 ml ESV(sp4-el): 71.1 ml EF(MOD-sp4): 51.1 % EF(sp4-el): 51.8 % SV(sp4-el): 76.6 ml LA A4 area: 15.3 cm2 RA A4 area: 18.0 cm2 Time Measurements MV dec time: 0.25 sec Doppler Measurements & Calculations MV E max redd: 111.6 cm/sec Lat Peak E' Redd: 7.6 cm/sec Med Peak E' Redd: 9.8 cm/sec MV A max redd: 75.5 cm/sec E/E' lat: 14.8 E/E' med: 11.4 MV E/A: 1.5 Ao V2 max: 149.3 cm/sec LV V1 max: 95.3 cm/sec PA V2 max: 95.6 cm/sec Ao max P.9 mmHg LV V1 max P.6 mmHg TR max redd: 314.0 cm/sec TR max P.5 mmHg Interpretation Summary The study was technically difficult. Segmental dysfunction with preserved ejection fraction (see wall motion). The estimated ejection fraction is 60 %. Mild concentric left ventricular hypertrophy. Trivial mitral valve insufficiency. Mild tricuspid valve insufficiency. Trivial pulmonic valve insufficiency. Right ventricular systolic pressure estimated to be 43 mmHg. There is evidence of diastolic dysfunction. Ordering Physician: Clint Solis Referring Physician: Clint Solis Performed By: Julia Will RDCS
--- NOTE | 2018-05-19 00:24 | MRI_ITS ---
STUDY: MRA OF THE HEAD WITHOUT CONTRAST REASON FOR EXAM: Female, 52 years old. Stroke TECHNIQUE: 3-D [id number] (TOF) imaging was performed with MIPs. The study was performed unenhanced. COMPARISON: None. FINDINGS: Normal bilateral petrous carotid arteries. Normal right cavernous carotid artery with a normal supraclinoid bifurcation. Normal left cavernous carotid artery with a normal supraclinoid bifurcation. There is moderate plaquing of the right A1 segments of the anterior cerebral artery. Normal left A1 segments of the anterior cerebral artery. Anterior communicating artery not visualized consistent with normal variant Normal bilateral A2 segments of the anterior cerebral arteries. There is moderate plaquing of the right M1 and M2 segments of the middle cerebral arteries, with a normal M1 bifurcation. Normal left M1 and M2 segments of the middle cerebral arteries, with a normal M1 bifurcation. Normal right posterior communicating artery (PCOM). Normal left posterior communicating artery (PCOM). Normal bilateral vertebral arteries. Normal basilar artery with a normal basilar bifurcation. The visualized bilateral superior cerebellar (SCA) arteries are normal. Normal bilateral P1, P2 and visualized P3 segments of the posterior cerebral arteries. There is no demonstrated aneurysm of the pilot point of [place]. There is no major vessel occlusion or hemodynamically significant stenosis. There is no demonstrated abnormality of the visualized brain. MRI/MRA Head ONLY without Contrast IMPRESSION: Atherosclerotic changes without evidence for hemodynamically significant stenosis or occlusive thrombus. Electronically Signed: Adilson Parada MD at 16:18 EST , Service support ,
--- NOTE | 2018-05-19 00:24 | MRI_ITS ---
STUDY: MRA NECK WITHOUT CONTRAST REASON FOR EXAM: Female, 52 years old. CVA TECHNIQUE: Source images were obtained, MIPs were performed. The study was performed unenhanced. COMPARISON: None. FINDINGS: Limited study due to motion artifact. RIGHT CAROTID ARTERIES: Normal right common carotid artery (CCA). Normal right common carotid bulb. Normal origin of the right internal carotid (ICA) artery without a hemodynamically significant stenosis. Normal visualized cervical portion of the right internal carotid artery. Normal origin of the right external carotid artery (ECA). LEFT CAROTID ARTERIES: Normal left common carotid artery (CCA). Normal left common carotid bulb. Normal origin of the left internal carotid (ICA) artery without a hemodynamically significant stenosis. Normal visualized cervical portion of the left internal carotid artery. Normal origin of the left external carotid artery (ECA). VERTEBRAL ARTERIES: The vertebrals bilaterally are codominant and there is no significant stenosis MRI/MRA Neck without Contrast IMPRESSION: Limited study due to artifact without definitive evidence for hemodynamically significant stenosis utilizing NASCET criteria Electronically Signed: Adilson Parada MD at 16:15 EST , Service support ,
[2018-05-19] MEDS: Heparin Injection (Vial) 5,000 UNIT/ML VIAL 5000 UNIT SC ×4 (01:48→22:03)
[2018-05-19] MEDS: Metoprolol(XL)Succ 100 MG Tablet PO ×2 (01:49→10:21)
--- NOTE | 2018-05-19 02:00 | NURSING ---
pt unable to follow commands making the NIHSS difficult to complete.
[2018-05-19 02:06] LABS: Bedside Glucose 344 mg/dL (70-110)
[2018-05-19 03:25] LABS: M R Staph aureus DNA By PCR Negative (Negative); Probe Check PASS; Specimen Processing Control PASS
--- NOTE | 2018-05-19 04:00 | NURSING ---
pt unable to follow commands making the NIHSS difficult to complete.
[2018-05-19 05:17] LABS: Anion Gap 14 (5-15); BUN 60 mg/dL (7-18); BUN/Creat Ratio 21.8 RATIO (10-20); Calcium,Total 7.4 mg/dL (8.5-10.1); Chloride 102 mmol/L (98-107); Cholesterol 122 mg/dL (200); Creatinine, Serum 2.75 mg/dL (0.55-1.02); EST Glomerular Filtration Rate 19 mL/min (>60); Est Glom Filt Rate - Afr Amer 23 mL/min (>60); Estimated Creatinine Clearance 18.06 ml/min; Glucose 341 mg/dL (74-106); High Density Lipoprotein 24 mg/dL; Potassium 3.7 mmol/L (3.5-5.1); Sodium Level 138 mmol/L (136-145); Triglycerides 174 mg/dL; Very Low Density Lipoprotein 35 mg/dL (5-40)
[2018-05-19] MEDS: Insulin Lispro 100 UNIT/ML INSULN.PEN SQ ×4 (05:34→21:38)
[2018-05-19] MEDS: Furosemide 40 MG/4 ML Vial IV ×3 (05:35→22:03)
[2018-05-19 05:36] LABS: Bedside Glucose 320 mg/dL (70-110)
[2018-05-19 05:57] LABS: Absolute Lymphocyte Count 1.15 X10^3/ul (0.83-4.51); Absolute Neutrophil Count 13.2 X10^3/uL (2.0-7.7); Basophil# 0.02 X10^3/uL; Basophil% 0.1 % (0-1); Eosinophil# 0.11 X10^3/uL; Eosinophils% 0.7 % (0-5); Hematocrit 30.1 % (37-47); Hemoglobin 9.7 g/dl (12.0-15.0); Lymphocyte # 1.15 X10^3/ul (4.0); Lymphocyte % 7.4 % (19-41); Mean Corp Hgb Conc 32.2 g/gl (32-36); Mean Corpuscular Hgb 27.7 pg (27.0-32.0); Monocyte# 0.85 X10^3/uL; Monocyte% 5.5 % (0-10); Neutrophil # 13.22 X10^3/uL (2.7-7.7); Neutrophil % 85.5 % (47-70); Platelet Count 289 K/mm3 (150-450); RBC Distribution Width CV 13.7 % (11.6-14.6); RBC Distribution Width SD 43.1 fl (35.1-43.9); White Blood Count 15.5 K/mm3 (4.4-11.0)
--- NOTE | 2018-05-19 06:00 | NURSING ---
pt continues to be unable to follow commands making the NIHSS difficult to complete.
[2018-05-19 06:01] LABS: POSITIVE COUNT NO; POSITIVE DIFFERENTIAL NO; POSITIVE MORPHOLOGY NO
[2018-05-19] MEDS: Ipratropium/Albuterol Sulfate 3 ML AMPUL.NEB INHALATION ×3 (07:30→19:29)
[2018-05-19 07:46] LABS: Bedside Glucose 301 mg/dL (70-110)
[2018-05-19] MEDS: Aspirin 81 MG TAB.CHEW PO (10:21)
[2018-05-19] MEDS: Gabapentin 100 MG Capsule PO ×3 (10:21→17:39)
[2018-05-19] MEDS: cloNIDine HCl 0.1 MG Tablet PO ×2 (10:21→22:03)
[2018-05-19] MEDS: hydroCHLOROthiazide 25 MG Tablet PO (10:21)
[2018-05-19] MEDS: Clopidogrel Bisulfate 75 MG Tablet PO (10:21)
[2018-05-19] MEDS: Lisinopril 40 MG Tablet PO ×2 (10:21→22:03)
[2018-05-19] MEDS: DULoxetine Hcl 30 MG Capsule PO (10:21)
[2018-05-19] MEDS: amLODIPine 10 MG Tablet PO (10:21)
[2018-05-19] MEDS: Nystatin Powder 15gm Bottle 1 APPLIC TOPICAL ×2 (10:23→21:36)
[2018-05-19] MEDS: Mupirocin Ointment 22gm Tube 1 APPLIC TOPICAL ×2 (10:24→21:37)
[2018-05-19 10:36] LABS: Bedside Glucose 259 mg/dL (70-110)
--- NOTE | 2018-05-19 12:21 | NURSING ---
son called and updated on condition
--- NOTE | 2018-05-19 13:10 | PCM.CONS.C ---
Reason for Consult Date of Consultation: 05/19/18 Reason for Consultation: Shortness of breath History of Present Illness: The patient is a 52 year old F with a significant history of DM, CAD status post stents; hypertension; and neuropathy who presented because of confusion. Her sister realized the patient was confused on the same day of presentation. In the past 2 weeks patient was admitted 2 times at [facility], will be back to [place]. For her first admission as she fell; and also she was treated for abdominal wall infection. Second admission she was admitted for flu; pneumonia and congestive heart failure. With her second admission she spent some time at the intensive care unit. Patient was discharge from [facility] about 2-3 days ago. She was admitted to the emergency room and was noted to have evidence of bilateral lung infiltrates, anion gap metabolic acidosis, elevated natruretic peptide level and nonspecific EKG changes. Due to the elevated natruretic peptide level cardiology was called for further evaluation and management. Past Medical History Allergies/Adverse Reactions: Allergies No Known Allergies Allergy (Verified 05/18/18 18:45) Home Medications: Ambulatory Orders Medication Instructions Recorded Aspirin [Aspirin, Baby] 81 mg PO DAILY 01/09/18 Atenolol [Tenormin] 100 mg PO DAILY 01/09/18 Clopidogrel Bisulfate [Plavix] 75 mg PO DAILY 01/09/18 Duloxetine Hcl [Cymbalta] 60 mg PO DAILY 01/09/18 Furosemide [Lasix] 20 mg PO DAILY 01/09/18 Gabapentin [Gralise] 600 mg PO TID 01/09/18 Hydrocodone/Acetaminophen 1 tab PO Q12H PRN PRN 01/09/18 [Hydrocodone-Acetamin 7.5-325] Lovastatin [Mevacor] 40 mg PO DAILY 01/09/18 Vitamin D 4,000 units PO BID 01/09/18 Guaifenesin/D-Methorphan Hb 1 tab PO BID #20 tab.sr.12h 01/13/18 [Humibid Dm] Insulin Glargine [Lantus SoloStar 5 units SC BID pen 01/13/18 Pen] Ipratropium/Albuterol Sulfate 3 ml INHALATION Q4H.RT ampul.neb 01/13/18 [Duoneb] Lisinopril [Zestril] 20 mg PO DAILY #30 tab 01/13/18 levoFLOXacin tablet [Levaquin 250 mg PO DAILY@0600 #4 tab 01/13/18 tablet] Amlodipine [Norvasc] 10 mg PO DAILY 05/18/18 Amoxicillin/Potassium Clav 1 tab PO BID 05/18/18 [Augmentin 875-125 Tablet] Atorvastatin Calcium 40 mg PO 05/18/18 Clonidine HCl [Catapres] 0.1 mg PO BID 05/18/18 Doxycycline Monohydrate 100 mg PO 05/18/18 Duloxetine Hcl [Cymbalta] 30 mg PO DAILY 05/18/18 Hydrochlorothiazide [Hctz] 25 mg PO DAILY 05/18/18 Insulin Lispro [Humalog Kwikpen] 0 unit SQ 05/18/18 Lisinopril [Zestril] 40 mg PO BID 05/18/18 Metoprolol Succinate [Toprol Xl] 100 mg PO 05/18/18 Prednisone 10 mg PO DAILY 05/18/18 Past Medical History (Chronic Problems): Chronic Problems Morbid obesity (Chronic) Hypertension (Chronic) Diabetes (Chronic) Surgical History: - - Coronary stents. Patient is confused and further history cannot be obtained. - *Family History Maternal History Items: Diabetes, Heart Disease Paternal History Items: Heart Disease, Hypertension Lives: With Family Smoking Status: Former smoker Alcohol: None Review of Systems - Review of Systems General: Reports: Fever, Fatigue, Malaise, Decreased Appetite HEENT: Denies: Vision Change Cardiovascular: Denies: Chest Discomfort, Shortness of Breath, Orthopnea, PND, Peripheral Edema, Palpitations, Lightheadedness, Dizziness, Near Syncope, Syncope Respiratory: Denies: Cough, Sputum Production, Hemoptysis Gastrointestinal: Denies: Hematemesis, Hematochezia, Melena Genitourinary: Denies: Dysuria, Hematuria Muscoloskeletal: Denies: Myalgias Skin: Denies: Rash Neurological: Reports: Confusion Psychiatric: Reports: Hallucinations Hematologic/ Lymphatic: Denies: Anemia Subjectve: Middle-aged lady in no distress Objective: Vital Signs Temp Pulse Resp BP Pulse Ox 97.9 F 68 20 H 164/76 H 95 05/19/18 11:00 05/19/18 12:06 05/19/18 11:00 05/19/18 11:00 05/19/18 11:00 Oxygen Flow Rate (L/min) 6 Oxygen Delivery Method Nasal Cannula Weight: 269 lb 13.533 oz Body Mass Index (BMI) 49.5 Intake and Output for Last 24 Hours 05/17/18 05/18/18 05/19/18 23:59 23:59 23:59 Intake Total 717 / 717 Output Total 1175 / 1175 Balance -458 / -458 General: Ill Appearing, Non-Cooperative HEENT: PERRL, EOMI, Sclera Non Icteric Oral: Moist Mucosa Neck: Supple, Good ROM, No Lymph Node Enlargement Lungs: Clear to auscultation Cardiovascular: Regular Rhythm, Normal S1, Normal S2, No Murmurs, No Rubs, No Gallops Vascular: No Carotid Bruits, Normal Femoral Pulses, Normal Radial Pulses, Normal Dorsalis Pedal Pulse, Normal Posterior Tibial Pulses Abdomen: Bowel Sounds Present, Soft, Non Tender, No HSM, No Organomegaly Extremities: No Cyanosis, No Clubbing, No edema Neurological: No Focal Motor or Sensory Deficit Psych/Mental Status: Inappropriate 05/18/18 19:20: WBC 16.0 H, RBC 3.88 L, Hgb 10.7 L, Hct 33.6 L, MCV 86.6, MCH 27.6, MCHC 31.8 L, RDW 13.8, RDW Differential 43.4, Plt Count 332, MPV 12.2 H, Immature Gran % (Auto) 0.900, Neut % (Auto) 89.9 H, Lymph % (Auto) 4.6 L, [place] % (Auto) 4.2, Eos % (Auto) 0.3, Baso % (Auto) 0.1, Absolute Neuts (auto) 14.4 H, Total Counted Not Reportable 05/18/18 19:20: PT 15.5 H, INR 1.2 05/18/18 19:20: Sodium 136, Potassium 3.9, Chloride 101, Carbon Dioxide 18.0 L, Anion Gap 17 H, BUN 58 H, Creatinine 2.73 H, Est GFR (MDRD) Af Amer 24 L, Est GFR (MDRD) Non-Af 19 L, BUN/Creatinine Ratio 21.2 H, Glucose 345 H, Calcium 8.0 L, Total Bilirubin 0.70, Direct Bilirubin 0.19, Troponin I 0.040 05/18/18 19:20: Lactic Acid 1.9 05/18/18 19:20: B-Natriuretic Peptide 574.5 H 05/18/18 19:59: pH 7.36, Bicarbonate Actual 15.6 L, POC Total CO2 16, Base Excess -10 L, O2 Saturation 90 L, ABG pCO2 27.9 L, ABG pO2 60 L, Lalito Test NA 05/18/18 21:30: Urine Color Yellow, Urine Clarity Sl. Cloudy, Urine pH 6.0, Ur Specific [place] 1.015, Urine Protein 100 H, Urine Glucose (UA) 100 H, Urine Ketones 5 H, Urine Occult Blood 50 H, Urine Nitrite Negative, Urine Bilirubin Negative, Urine Urobilinogen Normal, Ur Leukocyte Esterase 25 H, Urine RBC 0-5 SEEN, Urine WBC 10-25 SEEN 05/19/18 02:00: Troponin I 0.040 05/19/18 04:30: WBC 15.5 H, RBC 3.50 L, Hgb 9.7 L, Hct 30.1 L, MCV 86.0, MCH 27.7, MCHC 32.2, RDW 13.7, RDW Differential 43.1, Plt Count 289, MPV 12.0, Immature Gran % (Auto) 0.800, Neut % (Auto) 85.5 H, Lymph % (Auto) 7.4 L, [place] % (Auto) 5.5, Eos % (Auto) 0.7, Baso % (Auto) 0.1, Absolute Neuts (auto) 13.2 H, Total Counted Not Reportable 05/19/18 04:30: Sodium 138, Potassium 3.7, Chloride 102, Carbon Dioxide 22.0, Anion Gap 14, BUN 60 H, Creatinine 2.75 H, Est GFR (MDRD) Af Amer 23 L, Est GFR (MDRD) Non-Af 19 L, BUN/Creatinine Ratio 21.8 H, Glucose 341 H, Calcium 7.4 L, Triglycerides 174, Cholesterol 122, LDL Cholesterol 63, VLDL Cholesterol 35, HDL Cholesterol 24 L 05/19/18 04:30: Troponin I 0.042 05/19/18 08:00: Troponin I 0.033 Rhythm: EKG: Sinus rhythm with a rate of 70 bpm ECHO: Pending Assessment/Plan 1. Congestive heart failure The etiology of the above is unclear at this particular time. She does have elevated as well as renal dysfunction as may be contributing to the above. We will review her echocardiogram to assess her left ventricular function and guide treatment based on the above. 2. Abnormal cardiac enzymes She does have mildly abnormal cardiac enzymes. The etiology of the above is multifactorial. She probably has underlying coronary artery disease as well. Would probably wait to see what happens to her creatinine levels before making any decisions. Thank you for allowing me to participate in the care of your patient. Please don't hesitate to call if any issues arise
--- NOTE | 2018-05-19 13:14 | CON.PCM_ITS ---
Reason for Consult Date of Consultation: 05/19/18 Reason for Consultation: Shortness of breath History of Present Illness: The patient is a 52 year old F with a significant history of DM, CAD status post stents; hypertension; and neuropathy who presented because of confusion. Her sister realized the patient was confused on the same day of presentation. In the past 2 weeks patient was admitted 2 times at [facility], will be back to [place]. For her first admission as she fell; and also she was treated for abdominal wall infection. Second admission she was admitted for flu; pneumonia and congestive heart failure. With her second admission she spent some time at the intensive care unit. Patient was discharge from [facility] about 2-3 days ago. She was admitted to the emergency room and was noted to have evidence of bilateral lung infiltrates, anion gap metabolic acidosis, elevated natruretic peptide level and nonspecific EKG changes. Due to the elevated natruretic peptide level cardiology was called for further evaluation and management. Past Medical History Allergies/Adverse Reactions: Allergies No Known Allergies Allergy (Verified 05/18/18 18:45) Home Medications: Ambulatory Orders Medication Instructions Recorded Aspirin [Aspirin, Baby] 81 mg PO DAILY 01/09/18 Atenolol [Tenormin] 100 mg PO DAILY 01/09/18 Clopidogrel Bisulfate [Plavix] 75 mg PO DAILY 01/09/18 Duloxetine Hcl [Cymbalta] 60 mg PO DAILY 01/09/18 Furosemide [Lasix] 20 mg PO DAILY 01/09/18 Gabapentin [Gralise] 600 mg PO TID 01/09/18 Hydrocodone/Acetaminophen 1 tab PO Q12H PRN PRN 01/09/18 [Hydrocodone-Acetamin 7.5-325] Lovastatin [Mevacor] 40 mg PO DAILY 01/09/18 Vitamin D 4,000 units PO BID 01/09/18 Guaifenesin/D-Methorphan Hb 1 tab PO BID #20 tab.sr.12h 01/13/18 [Humibid Dm] Insulin Glargine [Lantus SoloStar 5 units SC BID pen 01/13/18 Pen] Ipratropium/Albuterol Sulfate 3 ml INHALATION Q4H.RT ampul.neb 01/13/18 [Duoneb] Lisinopril [Zestril] 20 mg PO DAILY #30 tab 01/13/18 levoFLOXacin tablet [Levaquin 250 mg PO DAILY@0600 #4 tab 01/13/18 tablet] Amlodipine [Norvasc] 10 mg PO DAILY 05/18/18 Amoxicillin/Potassium Clav 1 tab PO BID 05/18/18 [Augmentin 875-125 Tablet] Atorvastatin Calcium 40 mg PO 05/18/18 Clonidine HCl [Catapres] 0.1 mg PO BID 05/18/18 Doxycycline Monohydrate 100 mg PO 05/18/18 Duloxetine Hcl [Cymbalta] 30 mg PO DAILY 05/18/18 Hydrochlorothiazide [Hctz] 25 mg PO DAILY 05/18/18 Insulin Lispro [Humalog Kwikpen] 0 unit SQ 05/18/18 Lisinopril [Zestril] 40 mg PO BID 05/18/18 Metoprolol Succinate [Toprol Xl] 100 mg PO 05/18/18 Prednisone 10 mg PO DAILY 05/18/18 Past Medical History (Chronic Problems): Chronic Problems Morbid obesity (Chronic) Hypertension (Chronic) Diabetes (Chronic) Surgical History: - - Coronary stents. Patient is confused and further history cannot be obtained. - *Family History Maternal History Items: Diabetes, Heart Disease Paternal History Items: Heart Disease, Hypertension Lives: With Family Smoking Status: Former smoker Alcohol: None Review of Systems - Review of Systems General: Reports: Fever, Fatigue, Malaise, Decreased Appetite HEENT: Denies: Vision Change Cardiovascular: Denies: Chest Discomfort, Shortness of Breath, Orthopnea, PND, Peripheral Edema, Palpitations, Lightheadedness, Dizziness, Near Syncope, Syncope Respiratory: Denies: Cough, Sputum Production, Hemoptysis Gastrointestinal: Denies: Hematemesis, Hematochezia, Melena Genitourinary: Denies: Dysuria, Hematuria Muscoloskeletal: Denies: Myalgias Skin: Denies: Rash Neurological: Reports: Confusion Psychiatric: Reports: Hallucinations Hematologic/ Lymphatic: Denies: Anemia Subjectve: Middle-aged lady in no distress Objective: Vital Signs Temp Pulse Resp BP Pulse Ox 97.9 F 68 20 H 164/76 H 95 05/19/18 11:00 05/19/18 12:06 05/19/18 11:00 05/19/18 11:00 05/19/18 11:00 Oxygen Flow Rate (L/min) 6 Oxygen Delivery Method Nasal Cannula Weight: 269 lb 13.533 oz Body Mass Index (BMI) 49.5 Intake and Output for Last 24 Hours 05/17/18 05/18/18 05/19/18 23:59 23:59 23:59 Intake Total 717 / 717 Output Total 1175 / 1175 Balance -458 / -458 General: Ill Appearing, Non-Cooperative HEENT: PERRL, EOMI, Sclera Non Icteric Oral: Moist Mucosa Neck: Supple, Good ROM, No Lymph Node Enlargement Lungs: Clear to auscultation Cardiovascular: Regular Rhythm, Normal S1, Normal S2, No Murmurs, No Rubs, No Gallops Vascular: No Carotid Bruits, Normal Femoral Pulses, Normal Radial Pulses, Normal Dorsalis Pedal Pulse, Normal Posterior Tibial Pulses Abdomen: Bowel Sounds Present, Soft, Non Tender, No HSM, No Organomegaly Extremities: No Cyanosis, No Clubbing, No edema Neurological: No Focal Motor or Sensory Deficit Psych/Mental Status: Inappropriate 05/18/18 19:20: WBC 16.0 H, RBC 3.88 L, Hgb 10.7 L, Hct 33.6 L, MCV 86.6, MCH 27.6, MCHC 31.8 L, RDW 13.8, RDW Differential 43.4, Plt Count 332, MPV 12.2 H, Immature Gran % (Auto) 0.900, Neut % (Auto) 89.9 H, Lymph % (Auto) 4.6 L, [place] % (Auto) 4.2, Eos % (Auto) 0.3, Baso % (Auto) 0.1, Absolute Neuts (auto) 14.4 H, Total Counted Not Reportable 05/18/18 19:20: PT 15.5 H, INR 1.2 05/18/18 19:20: Sodium 136, Potassium 3.9, Chloride 101, Carbon Dioxide 18.0 L, Anion Gap 17 H, BUN 58 H, Creatinine 2.73 H, Est GFR (MDRD) Af Amer 24 L, Est GFR (MDRD) Non-Af 19 L, BUN/Creatinine Ratio 21.2 H, Glucose 345 H, Calcium 8.0 L, Total Bilirubin 0.70, Direct Bilirubin 0.19, Troponin I 0.040 05/18/18 19:20: Lactic Acid 1.9 05/18/18 19:20: B-Natriuretic Peptide 574.5 H 05/18/18 19:59: pH 7.36, Bicarbonate Actual 15.6 L, POC Total CO2 16, Base Excess -10 L, O2 Saturation 90 L, ABG pCO2 27.9 L, ABG pO2 60 L, Lalito Test NA 05/18/18 21:30: Urine Color Yellow, Urine Clarity Sl. Cloudy, Urine pH 6.0, Ur Specific [place] 1.015, Urine Protein 100 H, Urine Glucose (UA) 100 H, Urine Ketones 5 H, Urine Occult Blood 50 H, Urine Nitrite Negative, Urine Bilirubin Negative, Urine Urobilinogen Normal, Ur Leukocyte Esterase 25 H, Urine RBC 0-5 SEEN, Urine WBC 10-25 SEEN 05/19/18 02:00: Troponin I 0.040 05/19/18 04:30: WBC 15.5 H, RBC 3.50 L, Hgb 9.7 L, Hct 30.1 L, MCV 86.0, MCH 27.7, MCHC 32.2, RDW 13.7, RDW Differential 43.1, Plt Count 289, MPV 12.0, Immature Gran % (Auto) 0.800, Neut % (Auto) 85.5 H, Lymph % (Auto) 7.4 L, [place] % (Auto) 5.5, Eos % (Auto) 0.7, Baso % (Auto) 0.1, Absolute Neuts (auto) 13.2 H, Total Counted Not Reportable 05/19/18 04:30: Sodium 138, Potassium 3.7, Chloride 102, Carbon Dioxide 22.0, Anion Gap 14, BUN 60 H, Creatinine 2.75 H, Est GFR (MDRD) Af Amer 23 L, Est GFR (MDRD) Non-Af 19 L, BUN/Creatinine Ratio 21.8 H, Glucose 341 H, Calcium 7.4 L, Triglycerides 174, Cholesterol 122, LDL Cholesterol 63, VLDL Cholesterol 35, HDL Cholesterol 24 L 05/19/18 04:30: Troponin I 0.042 05/19/18 08:00: Troponin I 0.033 Rhythm: EKG: Sinus rhythm with a rate of 70 bpm ECHO: Pending Assessment/Plan 1. Congestive heart failure * The etiology of the above is unclear at this particular time. She does have elevated as well as renal dysfunction as may be contributing to the above. * We will review her echocardiogram to assess her left ventricular function and guide treatment based on the above. * 2. Abnormal cardiac enzymes * She does have mildly abnormal cardiac enzymes. The etiology of the above is multifactorial. She probably has underlying coronary artery disease as well. * Would probably wait to see what happens to her creatinine levels before making any decisions. * * Thank you for allowing me to participate in the care of your patient. Please don't hesitate to call if any issues arise
--- NOTE | 2018-05-19 13:19 | CASEMGMT ---
COOKIE spoke with patient's sister per her request. She asked SW how she gets patient's Medicaid transferred to [facility]. SW told her SW will find out and let her know. SW attempted to complete assessment, however she did not know much about how patient was doing or what equipment she owns. She said patient was living with her brother in a couple story home. She said patient will probably have to go to a senior care and then when she leaves the senior care she will live with her in [place]. COOKIE to follow for d/c planning. COOKIE called [employer] and patient does not have full Medicaid. She just has [employer] which pays for Medicare premiums and co-pays. She said patient will have to call [facility] and give them her new address. She said patient's sister can call, but they may want to talk with the patient. SW let patient's sister know this information. Cookie to follow for d/c planning. Patti SEQUEIRA MSW
[2018-05-19] MEDS: 0.9% NaCl Peripheral Flush Adult/Peds IV (15:30)
--- NOTE | 2018-05-19 16:59 | PCM.PN.HOSP ---
Patient Problems: Active and Suspected Problems Acute decompensated heart failure (Acute) Subjective: Patient was seen and examined. She is confused, oriented to self. Her sister has had a bedside. History given of patient recently discharged from [facility]; status records requested. According to the sister, she was the for pneumonia, heart failure, and influenza. On discharge, patient has not been able to to manage herself. She lives with her teenage daughter. She is progressively confused and her sister decided to bring her to [facility] for further evaluation. Vitals/I&O's: Vital Signs Temp Pulse Resp BP Pulse Ox 97.9 F 67 17 138/64 H 93 05/19/18 11:00 05/19/18 13:00 05/19/18 13:00 05/19/18 13:00 05/19/18 13:00 Oxygen Flow Rate (L/min) 6 Oxygen Delivery Method Nasal Cannula Weight: 122.4 kg Body Mass Index (BMI) 49.5 Intake and Output for Last 24 Hours 05/17/18 05/18/18 05/19/18 23:59 23:59 23:59 Intake Total 717 / 717 Output Total 1175 / 1175 Balance -458 / -458 General: Alert, Cooperative, No apparent distress - on 6L oxygen, Confused HEENT: Atraumatic, PERRLA, EOMI, Normocephalic Oral: Moist Mucosa Neck: Supple, No JVD, Negative Carotid Bruits Lungs: Clear to auscultation, Normal air movement Cardiovascular: Regular rate, Regular Rhythm, Normal S1, Normal S2, No murmurs Abdomen: Bowel Sounds Present, Soft, Non Tender, Non-Distended, No Hepato-splenomegaly Extremities: No edema Skin: No rashes, No breakdown Musculoskeletal: No Tenderness to Palpation of Joints or Extremities Lymphatic: No Cervical, Supraclavicular, or Inguinal Adenopathy Neurological: Cranial nerves II-XII grossly intact, Neuro grossly intact Psych/Mental Status: Normal Affect, Appropriate Microbiology Past 72 Hours 05/18/18 21:30 Urine Catheter - Lynn Legionella Antigen - Final 05/18/18 21:30 Urine Catheter - Lynn Streptococcus pneumoniae Antigen (M - Final Laboratory Results 05/18/18 19:20: WBC 16.0 H, RBC 3.88 L, Hgb 10.7 L, Hct 33.6 L, MCV 86.6, MCH 27.6, MCHC 31.8 L, RDW 13.8, RDW Differential 43.4, Plt Count 332, MPV 12.2 H, Immature Gran % (Auto) 0.900, Neut % (Auto) 89.9 H, Lymph % (Auto) 4.6 L, [place] % (Auto) 4.2, Eos % (Auto) 0.3, Baso % (Auto) 0.1, Absolute Neuts (auto) 14.4 H, Absolute Lymphs (auto) 0.73 L, Total Counted Not Reportable 05/18/18 19:20: PT 15.5 H, INR 1.2 05/18/18 19:20: Sodium 136, Potassium 3.9, Chloride 101, Carbon Dioxide 18.0 L, Anion Gap 17 H, BUN 58 H, Creatinine 2.73 H, Estim Creat Clear Calc 19.07, Est GFR (MDRD) Af Amer 24 L, Est GFR (MDRD) Non-Af 19 L, BUN/Creatinine Ratio 21.2 H, Glucose 345 H, Calcium 8.0 L, Total Bilirubin 0.70, Direct Bilirubin 0.19, AST 26, ALT 19, Alkaline Phosphatase 143 H, Troponin I 0.040, Total Protein 6.9, Albumin 1.7 L, Globulin 5.2 H 05/18/18 19:20: Lactic Acid 1.9 05/18/18 19:20: B-Natriuretic Peptide 574.5 H 05/18/18 19:59: Specimen Type ART, Sample Site R Radial, pH 7.36, Bicarbonate Actual 15.6 L, POC Total CO2 16, Base Excess -10 L, O2 Saturation 90 L, ABG pCO2 27.9 L, ABG pO2 60 L, Lalito Test NA, O2 Delivery Device Nasal Can, Liter Flow 6.0, Blood Gas Notified Whom ED 05/18/18 21:30: Urine Color Yellow, Urine Clarity Sl. Cloudy, Urine pH 6.0, Ur Specific [place] 1.015, Urine Protein 100 H, Urine Glucose (UA) 100 H, Urine Ketones 5 H, Urine Occult Blood 50 H, Urine Nitrite Negative, Urine Bilirubin Negative, Urine Urobilinogen Normal, Ur Leukocyte Esterase 25 H, Urine RBC 0-5 SEEN, Urine WBC 10-25 SEEN, Ur Squamous Epith Cells 0-5 SEEN, Urine Bacteria 0 SEEN, Hyaline Casts 0-5 SEEN, Urine Mucus 0 SEEN, Urine Yeast 1+ 05/19/18 01:46: POC Glucose 344 H 05/19/18 02:00: Troponin I 0.040 05/19/18 02:10: MRSA (PCR) Negative 05/19/18 04:30: WBC 15.5 H, RBC 3.50 L, Hgb 9.7 L, Hct 30.1 L, MCV 86.0, MCH 27.7, MCHC 32.2, RDW 13.7, RDW Differential 43.1, Plt Count 289, MPV 12.0, Immature Gran % (Auto) 0.800, Neut % (Auto) 85.5 H, Lymph % (Auto) 7.4 L, [place] % (Auto) 5.5, Eos % (Auto) 0.7, Baso % (Auto) 0.1, Absolute Neuts (auto) 13.2 H, Absolute Lymphs (auto) 1.15, Total Counted Not Reportable 05/19/18 04:30: Sodium 138, Potassium 3.7, Chloride 102, Carbon Dioxide 22.0, Anion Gap 14, BUN 60 H, Creatinine 2.75 H, Estim Creat Clear Calc 18.06, Est GFR (MDRD) Af Amer 23 L, Est GFR (MDRD) Non-Af 19 L, BUN/Creatinine Ratio 21.8 H, Glucose 341 H, Calcium 7.4 L, Triglycerides 174, Cholesterol 122, LDL Cholesterol 63, VLDL Cholesterol 35, HDL Cholesterol 24 L 05/19/18 04:30: Troponin I 0.042 05/19/18 04:30: Hemoglobin A1c Pending 05/19/18 05:28: POC Glucose 320 H 05/19/18 07:41: POC Glucose 301 H 05/19/18 08:00: Troponin I 0.033 05/19/18 10:16: POC Glucose 259 H Current Medications Albuterol Sulfate (Ventolin Aerosols) 2.5 mg INHALATION Q2H PRN PRN PRN Reason: SHORTNESS OF BREATH Albuterol/Ipratropium (Duoneb) 3 ml INHALATION Q4H.RT [facility] Last Admin: 05/19/18 11:11 Dose: 3 ml Amlodipine Besylate (Norvasc) 10 mg PO DAILY [facility] Last Admin: 05/19/18 10:21 Dose: 10 mg Aspirin (Aspirin, Baby) 81 mg PO DAILYCM [facility] Last Admin: 05/19/18 10:21 Dose: 81 mg Atorvastatin Calcium (Lipitor) 40 mg PO QHS [facility] Clonidine (Catapres) 0.1 mg PO BID [facility] Last Admin: 05/19/18 10:21 Dose: 0.1 mg Clopidogrel Bisulfate (Plavix) 75 mg PO DAILY [facility] Last Admin: 05/19/18 10:21 Dose: 75 mg Dextrose (D50w Syringe) 0 gm IV X1 PRN; Protocol PRN Reason: Hypoglycemia Duloxetine HCl (Cymbalta) 30 mg PO DAILY [facility] Last Admin: 05/19/18 10:21 Dose: 30 mg Furosemide (Lasix) 40 mg IV Q8 [facility] Last Admin: 05/19/18 15:29 Dose: 40 mg Gabapentin (Neurontin) 100 mg PO TIDCM [facility] Last Admin: 05/19/18 15:28 Dose: 100 mg Glucagon () 1 mg IM .X1 PRN PRN Reason: Hypoglycemia Heparin Sodium (Porcine) (Heparin Na) 5,000 unit SC Q8 [facility] Last Admin: 05/19/18 15:29 Dose: 5,000 unit Hydrochlorothiazide (Hctz) 25 mg PO DAILY [facility] Last Admin: 05/19/18 10:21 Dose: 25 mg Azithromycin 500 mg/ Dextrose 255 mls @ 250 mls/hr IV Q24H [facility] Ceftriaxone Sodium (Rocephin) 1 gm in 50 mls @ 100 mls/hr IV Q24H [facility] Sodium Chloride () 250 mls @ 15 mls/hr IV .[id number] PRN PRN Reason: SALINE FLUSH Insulin Glargine (Lantus (Bkc)) 10 units SC BID [facility] Last Admin: 05/19/18 10:19 Dose: 10 units Insulin Human Lispro (Humalog Kwikpen (Bkc)) 0 unit SQ ACHS & 3AM [facility]; Protocol Last Admin: 05/19/18 10:18 Dose: 4 units Lisinopril (Zestril) 40 mg PO BID [facility] Last Admin: 05/19/18 10:21 Dose: 40 mg Magnesium Hydroxide (Milk Of Magnesia) 30 ml PO DAILY PRN PRN Reason: Constipation Metoprolol Succinate (Toprol Xl (Beta Ángela)) 100 mg PO DAILY [facility] Last Admin: 05/19/18 10:21 Dose: 100 mg Mupirocin (Bactroban) 1 applic TOPICAL BID [facility]; Protocol Last Admin: 05/19/18 10:24 Dose: 1 applicatio Nystatin (Mycostatin Powder) 1 applic TOPICAL BID [facility]; Protocol Last Admin: 05/19/18 10:23 Dose: 1 applicatio Ondansetron HCl (Zofran) 4 mg IV Q8H PRN PRN PRN Reason: NAUSEA Potassium Chloride (K-Dur) 40 meq PO DAILY [facility] Last Admin: 05/19/18 10:21 Dose: 40 meq Sodium Chloride () 5 - 15 ml IV UD PRN PRN Reason: SALINE FLUSH Last Admin: 05/19/18 15:30 Dose: 15 ml Medical Necessity - Tobacco Use Smoking Status: Former smoker Assessment/Plan All Active Problems Acute kidney injury (Acute) Acute renal injury due to circulatory failure (Acute) Acute decompensated heart failure (Acute) 52-year-old with multiple comorbidities including obesity, type II DM, CAD status post stent, hypertension who comes in with progressive confusion after recently being admitted to [facility] for influenza, pneumonia, probable C. difficile. 1. Acute metabolic encephalopathy secondary to acute CVA, patient is oriented x1, continue to monitor 2. Acute CVA, seen on CT of the head, confirmed with MRI of the brain - left posterior, temporal, posterior frontal and parietal lobes Continue on aspirin and Plavix, statin, continue with NIHSS monitoring, PT, OT and speech therapy to evaluate Neurology consulted-passed on phone, recommend repeat CT of the brain in a.m. to monitor for cerebral edema 3. Acute on chronic diastolic CHF, 65%/pulmonary hypertension, RVSP 43, continue on Lasix 40 mg IV BID, strict I's and O's, CHF protocol, labs in a.m. 4. Possible HCAP, recently treated in [facility], infiltrate seen on x-ray might be from recent pneumonia Patient appears stable, Stat records are pending We will continue on ceftriaxone and azithromycin for now, labs in a.m. 5. CARYN on CKD stage 3, creatinine remains about the same, records from [facility] is pending 6. Hypertension, controlled, continue on amlodipine, lisinopril, Klonopin, metoprolol 7. Type 2 DM, blood sugars are fairly uncontrolled, continue on Lantus, insulin sliding scale for now, will adjust insulin depending on blood sugars 8. CAD status post stent, on aspirin, statin, metoprolol, lisinopril 9. DVT PPx- Heparin SC Code Visit Inpatient E&M: 65660 Subs Hosp L3
[2018-05-19 17:02] LABS: Hemoglobin A1c 10.2 % (4.2-6.3)
[2018-05-19 18:26] LABS: Bedside Glucose 303 mg/dL (70-110)
[2018-05-19] MEDS: Atorvastatin Calcium 40 MG Tablet PO (22:03)
[2018-05-19 22:16] LABS: Bedside Glucose 279 mg/dL (70-110)
[2018-05-19] MEDS: Ceftriaxone 1 GM/50 ML BAG IV (23:34)
[2018-05-20] VITALS (14 sets, daily range): BP systolic 128–160; BP diastolic 66–80; PULSE 62–78; RESP 15–18; TEMP 36.4–36.9; O2SAT 94–99; BMI 49.5
[2018-05-20] MEDS: Insulin Lispro 100 UNIT/ML INSULN.PEN SQ ×3 (02:01→17:55)
[2018-05-20 02:11] LABS: Bedside Glucose 235 mg/dL (70-110)
[2018-05-20 05:41] LABS: Absolute Lymphocyte Count 1.17 X10^3/ul (0.83-4.51); Absolute Neutrophil Count 10.8 X10^3/uL (2.0-7.7); Basophil# 0.02 X10^3/uL; Basophil% 0.2 % (0-1); Eosinophil# 0.53 X10^3/uL; Hematocrit 28.4 % (37-47); Lymphocyte # 1.17 X10^3/ul (4.0); Lymphocyte % 8.8 % (19-41); Mean Corp Hgb Conc 31.7 g/gl (32-36); Mean Corpuscular Hgb 28.1 pg (27.0-32.0); Mean Corpuscular Volume 88.8 fL (81-99); Monocyte# 0.73 X10^3/uL; Monocyte% 5.5 % (0-10); Neutrophil # 10.79 X10^3/uL (2.7-7.7); Neutrophil % 80.9 % (47-70); Platelet Count 241 K/mm3 (150-450); RBC Distribution Width CV 13.5 % (11.6-14.6); RBC Distribution Width SD 41.9 fl (35.1-43.9); White Blood Count 13.3 K/mm3 (4.4-11.0)
[2018-05-20] MEDS: Heparin Injection (Vial) 5,000 UNIT/ML VIAL 5000 UNIT SC ×2 (05:44→14:48)
[2018-05-20 05:50] LABS: POSITIVE COUNT NO; POSITIVE DIFFERENTIAL NO; POSITIVE MORPHOLOGY NO
[2018-05-20 06:07] LABS: Albumin, Serum 1.3 g/dL (3.2-5.0); BUN 62 mg/dL (7-18); BUN/Creat Ratio 22.7 RATIO (10-20); Calcium,Total 7.4 mg/dL (8.5-10.1); Chloride 106 mmol/L (98-107); Creatinine, Serum 2.73 mg/dL (0.55-1.02); EST Glomerular Filtration Rate 19 mL/min (>60); Est Glom Filt Rate - Afr Amer 24 mL/min (>60); Estimated Creatinine Clearance 18.19 ml/min; Glucose 169 mg/dL (74-106); Phosphorus 5.2 mg/dL (2.5-4.9); Potassium 3.6 mmol/L (3.5-5.1); Sodium Level 140 mmol/L (136-145)
[2018-05-20 07:01] LABS: Bedside Glucose 146 mg/dL (70-110)
[2018-05-20] MEDS: Ipratropium/Albuterol Sulfate 3 ML AMPUL.NEB INHALATION ×3 (07:32→15:20)
--- NOTE | 2018-05-20 07:36 | CT_ITS ---
STUDY: CT BRAIN WITHOUT CONTRAST REASON FOR EXAM: Female, 52 years old. History of CVA. RADIATION DOSAGE (If Supplied By Facility): CTDIvol = ( 44.99 ) mGy, DLP = ( 745.49 ) mGycm TECHNIQUE: Transaxial CT imaging of the brain was performed without administration of intravenous contrast material. Individualized dose optimization techniques were used for this CT. COMPARISON: Comparison is made with prior study dated May 18, 2018. FINDINGS: Normal soft tissue structures. Normal calvarium. Normal size ventricles and extra-axial spaces for the patient's age. Once again, there is evidence of decreased attenuation in the territory of the left middle cerebral artery in keeping with the recent infarction. Mild surrounding edema is present. No significant shift of the midline is seen. Normal basal ganglia and thalami. Normal brainstem. Normal cerebellum. There is no intracranial hemorrhage. There are no findings of an acute ischemic infarction. Normal visualized paranasal sinuses. CT/Brain/Head without Contrast IMPRESSION: Findings in comparison with the acute/subacute ischemic infarct in the territory of the left middle cerebral artery. Electronically Signed: David Painting MD at 15:10 EST , Service support ,
--- NOTE | 2018-05-20 07:37 | PCM.PN.HOSP ---
Patient Problems: Active and Suspected Problems Acute decompensated heart failure (Acute) Subjective: Patient was seen and examined. No acute events overnight. Remains confused. Records were received from [facility]: She was admitted there from 08 May - 14 May with acute influenza, pneumonia, acute respiratory failure, AK I on CKD. The hospital stay, patient was started on Tamiflu, she had pneumonia and was treated with steroids and antibiotics and she was on oxygen. Her lisinopril was stopped and she was switched to Norvasc and hydralazine. Vitals/I&O's: Vital Signs Temp Pulse Resp BP Pulse Ox 97.5 F L 65 15 135/80 H 95 05/20/18 05:25 05/20/18 06:58 05/20/18 05:25 05/20/18 05:25 05/20/18 05:25 Oxygen Flow Rate (L/min) 5 Oxygen Delivery Method Nasal Cannula Weight: 122.1 kg Body Mass Index (BMI) 49.5 Intake and Output for Last 24 Hours 05/18/18 05/19/18 05/20/18 23:59 23:59 23:59 Intake Total 1117 / 1117 769 / 769 Output Total 1725 / 1725 1125 / 1125 Balance -608 / -608 -356 / -356 Microbiology Past 72 Hours 05/18/18 21:30 Urine Catheter - Lynn Legionella Antigen - Final 05/18/18 21:30 Urine Catheter - Lynn Streptococcus pneumoniae Antigen (M - Final Laboratory Results 05/19/18 04:30: Hemoglobin A1c 10.2 H 05/19/18 07:41: POC Glucose 301 H 05/19/18 08:00: Troponin I 0.033 05/19/18 10:16: POC Glucose 259 H 05/19/18 17:28: POC Glucose 303 H 05/19/18 21:20: POC Glucose 279 H 05/20/18 01:45: POC Glucose 235 H 05/20/18 05:15: WBC 13.3 H, RBC 3.20 L, Hgb 9.0 L, Hct 28.4 L, MCV 88.8, MCH 28.1, MCHC 31.7 L, RDW 13.5, RDW Differential 41.9, Plt Count 241, MPV 12.0, Immature Gran % (Auto) 0.600, Neut % (Auto) 80.9 H, Lymph % (Auto) 8.8 L, [place] % (Auto) 5.5, Eos % (Auto) 4.0, Baso % (Auto) 0.2, Absolute Neuts (auto) 10.8 H, Absolute Lymphs (auto) 1.17, Total Counted Not Reportable 05/20/18 05:15: Sodium 140, Potassium 3.6, Chloride 106, Carbon Dioxide 23.0, BUN 62 H, Creatinine 2.73 H, Estim Creat Clear Calc 18.19, Est GFR (MDRD) Af Amer 24 L, Est GFR (MDRD) Non-Af 19 L, BUN/Creatinine Ratio 22.7 H, Glucose 169 H, Calcium 7.4 L, Phosphorus 5.2 H, Albumin 1.3 L 05/20/18 06:57: POC Glucose 146 H Current Medications Albuterol Sulfate (Ventolin Aerosols) 2.5 mg INHALATION Q2H PRN PRN PRN Reason: SHORTNESS OF BREATH Albuterol/Ipratropium (Duoneb) 3 ml INHALATION Q4H.RT [facility] Last Admin: 05/20/18 07:32 Dose: 3 ml Amlodipine Besylate (Norvasc) 10 mg PO DAILY [facility] Last Admin: 05/19/18 10:21 Dose: 10 mg [facility]irin [facility]in, Baby) [facility] Last Admin: 05/19/18 10:21 Dose: 81 mg Atorvastatin Calcium (Lipitor) 40 mg PO QHS [facility] Last Admin: 05/19/18 22:03 Dose: 40 mg Clonidine (Catapres) 0.1 mg PO BID [facility] Last Admin: 05/19/18 22:03 Dose: 0.1 mg Clopidogrel Bisulfate (Plavix) 75 mg PO DAILY [facility] Last Admin: 05/19/18 10:21 Dose: 75 mg Dextrose (D50w Syringe) 0 gm IV X1 PRN; Protocol PRN Reason: Hypoglycemia Duloxetine HCl (Cymbalta) 30 mg PO DAILY [facility] Last Admin: 05/19/18 10:21 Dose: 30 mg Furosemide (Lasix) 40 mg IV BID [facility] Last Admin: 05/19/18 22:03 Dose: 40 mg Gabapentin (Neurontin) 100 mg PO TIDCM [facility] Last Admin: 05/19/18 17:39 Dose: 100 mg Glucagon () 1 mg IM .X1 PRN PRN Reason: Hypoglycemia Heparin Sodium (Porcine) (Heparin Na) 5,000 unit SC Q8 [facility] Last Admin: 05/20/18 05:44 Dose: 5,000 unit Hydrochlorothiazide (Hctz) 25 mg PO DAILY [facility] Last Admin: 05/19/18 10:21 Dose: 25 mg Azithromycin 500 mg/ Dextrose 255 mls @ 250 mls/hr IV Q24H [facility] Last Admin: 05/19/18 21:36 Dose: 250 mls/hr Ceftriaxone Sodium (Rocephin) 1 gm in 50 mls @ 100 mls/hr IV Q24H [facility] Last Admin: 05/19/18 23:34 Dose: 100 mls/hr Sodium Chloride () 250 mls @ 15 mls/hr IV .[id number] PRN PRN Reason: SALINE FLUSH Insulin Glargine (Lantus (Bkc)) 10 units SC BID [facility] Last Admin: 05/19/18 21:37 Dose: 10 units Insulin Human Lispro (Humalog Kwikpen (Bkc)) 0 unit SQ ACHS & 3AM [facility]; Protocol Last Admin: 05/20/18 07:21 Dose: Not Given Lisinopril (Zestril) 40 mg PO BID [facility] Last Admin: 05/19/18 22:03 Dose: 40 mg Magnesium Hydroxide (Milk Of Magnesia) 30 ml PO DAILY PRN PRN Reason: Constipation Metoprolol Succinate (Toprol Xl (Beta Ángela)) 100 mg PO DAILY [facility] Last Admin: 05/19/18 10:21 Dose: 100 mg Mupirocin (Bactroban) 1 applic TOPICAL BID [facility]; Protocol Last Admin: 05/19/18 21:37 Dose: 1 applicatio Nystatin (Mycostatin Powder) 1 applic TOPICAL BID [facility]; Protocol Last Admin: 05/19/18 21:36 Dose: 1 applicatio Ondansetron HCl (Zofran) 4 mg IV Q8H PRN PRN PRN Reason: NAUSEA Potassium Chloride (K-Dur) 40 meq PO DAILY [facility] Last Admin: 05/19/18 10:21 Dose: 40 meq Sodium Chloride () 5 - 15 ml IV UD PRN PRN Reason: SALINE FLUSH Last Admin: 05/19/18 15:30 Dose: 15 ml Medical Necessity - Tobacco Use Smoking Status: Former smoker Assessment/Plan All Active Problems Acute kidney injury (Acute) Acute renal injury due to circulatory failure (Acute) Acute decompensated heart failure (Acute)
--- NOTE | 2018-05-20 09:35 | CASEMGMT ---
RAN called patient's son and left him a voice mail asking him which nursing facility they would like patient to go to at d/c. Patti SEQUEIRA MSW
--- NOTE | 2018-05-20 09:52 | CON.PCM_ITS ---
Reason for Consult Date of Consultation: 05/20/18 Reason for Consultation: Left MCA CVA History of Present Illness: The patient is a 52 year old F admitted to [facility] in [place] on 05/08/18 and discharged 05/14/18 with a diagnosis of influenza and ammonia as well as uncontrolled diabetes and hypertension. Also a recent hospitalization for abdominal wall cellulitis. The patient is not able to tell me the history of present illness currently, history is obtained from records as well as from other hospital staff. The hospital records from [facility] indicates that there were no neurologic issues at that time. No neuroimaging was performed. He is now admitted with confusion, CAT scan and MRI done here at [facility] does disclosed left MCA distribution infarct. Into the record Ashlyn is already on aspirin and Plavix. per admit note:The patient is a 52 year old F with a significant history of DM, CAD status post stents; hypertension; and neuropathy who presented because of confusion. Her sister realized the patient was confused on the same day of presentation. Per sister patient was confused and was talking about their father as if their father was confused In the past 2 weeks patient was admitted 2 times at [facility], will be back to [place]. For her first admission as she fell; and also she was treated for abdominal wall infection. Second admission she was admitted for flu; pneumonia and congestive heart failure. With her second admission she spent some time at the intensive care unit. Patient was discharge from [facility] about 2-3 days ago. Associated with her symptoms is a diarrhea. At the emergency department patient was found to have radiographic evidence of bilateral lung infiltrates; laboratory evidence of leukocytosis; anemia and anion gap metabolic acidosis; with severely elevated creatinine and BNP. Patient received Lasix and broad-spectrum antibiotics for pneumonia. CT brain was remarkable for acute/subacute ischemic infarction in the distribution of the left middle cerebral artery. Past Medical History Past Medical History (Chronic Problems): Chronic Problems Morbid obesity (Chronic) Hypertension (Chronic) Diabetes (Chronic) Allergies No Known Allergies Allergy (Verified 05/18/18 18:45) Home Medications: Ambulatory Orders Medication Instructions Recorded Aspirin [Aspirin, Baby] 81 mg PO DAILY 01/09/18 Atenolol [Tenormin] 100 mg PO DAILY 01/09/18 Clopidogrel Bisulfate [Plavix] 75 mg PO DAILY 01/09/18 Duloxetine Hcl [Cymbalta] 60 mg PO DAILY 01/09/18 Furosemide [Lasix] 20 mg PO DAILY 01/09/18 Gabapentin [Gralise] 600 mg PO TID 01/09/18 Hydrocodone/Acetaminophen 1 tab PO Q12H PRN PRN 01/09/18 [Hydrocodone-Acetamin 7.5-325] Lovastatin [Mevacor] 40 mg PO DAILY 01/09/18 Vitamin D 4,000 units PO BID 01/09/18 Guaifenesin/D-Methorphan Hb 1 tab PO BID #20 tab.sr.12h 01/13/18 [Humibid Dm] Insulin Glargine [Lantus SoloStar 5 units SC BID pen 01/13/18 Pen] Ipratropium/Albuterol Sulfate 3 ml INHALATION Q4H.RT ampul.neb 01/13/18 [Duoneb] Lisinopril [Zestril] 20 mg PO DAILY #30 tab 01/13/18 levoFLOXacin tablet [Levaquin 250 mg PO DAILY@0600 #4 tab 01/13/18 tablet] Amlodipine [Norvasc] 10 mg PO DAILY 05/18/18 Amoxicillin/Potassium Clav 1 tab PO BID 05/18/18 [Augmentin 875-125 Tablet] Atorvastatin Calcium 40 mg PO DAILY 05/18/18 Clonidine HCl [Catapres] 0.1 mg PO BID 05/18/18 Doxycycline Monohydrate 100 mg PO 05/18/18 Duloxetine Hcl [Cymbalta] 30 mg PO DAILY 05/18/18 Hydrochlorothiazide [Hctz] 25 mg PO DAILY 05/18/18 Insulin Lispro [Humalog Kwikpen] 0 unit SQ 05/18/18 Lisinopril [Zestril] 40 mg PO BID 05/18/18 Metoprolol Succinate [Toprol Xl] 100 mg PO DAILY 05/18/18 Prednisone 10 mg PO DAILY 05/18/18 Surgical History: - - Coronary stents. Patient is confused and further history cannot be obtained. Lives: With Family Smoking Status: Former smoker Alcohol: None - *Family History Maternal History Items: Diabetes, Heart Disease Paternal History Items: Heart Disease, Hypertension Review of Systems Constitutional: Reports: Weight Change Unable to obtain accurate/complete ROS d/t: Severe aphasia Patient Problems: Active and Suspected Problems Acute decompensated heart failure (Acute) Objective: On neurologic examination she is awake and alert, follows simple commands She is unable to tell me her age or the month but she does recognize the appropriate age and month when she is given options. Moderate to severe aphasia both expressive and receptive components There is a right field cut Pupils are equal No facial asymmetry Appears to be mild sensory extinction Very mild right upper and right lower extremity drift does not hit the bed No discoordination nihss 10 - Physical Exam Vital Signs Temp Pulse Resp BP Pulse Ox 36.4 C L 76 18 135/80 H 99 05/20/18 05:25 05/20/18 07:36 05/20/18 07:36 05/20/18 05:25 05/20/18 07:36 Oxygen Flow Rate (L/min) 5 Oxygen Delivery Method Nasal Cannula Weight: 122.1 kg Body Mass Index (BMI) 49.5 Intake and Output for Last 24 Hours 05/18/18 05/19/18 05/20/18 23:59 23:59 23:59 Intake Total 1117 / 1117 769 / 769 Output Total 1725 / 1725 1125 / 1125 Balance -608 / -608 -356 / -356 Microbiology Past 72 Hours 05/18/18 21:30 Legionella Antigen - Final Urine Catheter - Lynn 05/18/18 21:30 Streptococcus pneumoniae Antigen (M - Final Urine Catheter - Lynn Laboratory Tests Past 24 Hrs 05/19/18 05/20/18 05/20/18 04:30 05:15 05:15 WBC 13.3 H RBC 3.20 L Hgb 9.0 L Hct 28.4 L MCV 88.8 MCH 28.1 MCHC 31.7 L RDW 13.5 RDW Differential 41.9 Plt Count 241 MPV 12.0 Immature Gran % (Auto) 0.600 Neut % (Auto) 80.9 H Lymph % (Auto) 8.8 L Kendall % (Auto) 5.5 Eos % (Auto) 4.0 Baso % (Auto) 0.2 Absolute Neuts (auto) 10.8 H Absolute Lymphs (auto) 1.17 Total Counted Not Reportable Sodium 140 Potassium 3.6 Chloride 106 Carbon Dioxide 23.0 BUN 62 H Creatinine 2.73 H Estim Creat Clear Calc 18.19 Est GFR (MDRD) Af Amer 24 L Est GFR (MDRD) Non-Af 19 L BUN/Creatinine Ratio 22.7 H Glucose 169 H Hemoglobin A1c 10.2 H Calcium 7.4 L Phosphorus 5.2 H Albumin 1.3 L POC Glucose 05/20/18 05/20/18 05/19/18 06:57 01:45 21:20 POC Glucose 146 H 235 H 279 H 05/19/18 05/19/18 17:28 10:16 POC Glucose [address] 05/20/18 reveiwed, left mca infarct mri reviewed, left mca infarct acute, approx 2/3 left mca distribution. mra low quality echo: no pfo. nl ef. Current Medications Generic Name Dose Route Start Last Admin Trade Name Freq PRN Reason Stop Dose Admin Albuterol Sulfate 2.5 mg 05/19/18 00:24 Ventolin Aerosols INHALATION Q2H PRN PRN SHORTNESS OF BREATH Albuterol/Ipratropium 3 ml 05/19/18 00:24 05/20/18 07:32 Duoneb INHALATION 3 ml Q4H.RT LIZZETH Administration Amlodipine Besylate 10 mg 05/19/18 10:00 05/19/18 10:21 Norvasc PO 10 mg DAILY LIZZETH Administration Aspirin 81 mg 05/19/18 08:00 05/19/18 10:21 Aspirin, Baby PO 81 mg DAILYCM LIZZETH Administration Atorvastatin Calcium 40 mg 05/19/18 22:00 05/19/18 22:03 Lipitor PO 40 mg QHS LIZZETH Administration Calamine/Phenol 1 applic 05/20/18 10:00 Calmoseptine Ointment TOPICAL BID LIZZETH Protocol Clonidine 0.1 mg 05/19/18 10:00 05/19/18 22:03 Catapres PO 0.1 mg BID LIZZETH Administration Clopidogrel Bisulfate 75 mg 05/19/18 10:00 05/19/18 10:21 Plavix PO 75 mg DAILY LIZZETH Administration Dextrose 0 gm 05/19/18 00:24 D50w Syringe IV X1 PRN Hypoglycemia Protocol Duloxetine HCl 30 mg 05/19/18 10:00 05/19/18 10:21 Cymbalta PO 30 mg DAILY LIZZETH Administration Furosemide 40 mg 05/19/18 22:00 05/19/18 22:03 Lasix IV 40 mg BID LIZZETH Administration Gabapentin 100 mg 05/19/18 08:00 05/19/18 17:39 Neurontin PO 100 mg TIDCM LIZZETH Administration Glucagon 1 mg 05/19/18 00:24 IM .X1 PRN Hypoglycemia Heparin Sodium (Porcine) 5,000 unit 05/19/18 00:24 05/20/18 05:44 Heparin Na SC 5,000 unit Q8 LIZZETH Administration Hydrochlorothiazide 25 mg 05/19/18 10:00 05/19/18 10:21 Hctz PO 25 mg DAILY LIZZETH Administration Azithromycin 500 mg/ Dextrose 255 mls @ 250 mls/hr 05/19/18 22:00 05/19/18 21:36 IV 250 mls/hr Q24H LIZZETH Administration Ceftriaxone Sodium 1 gm in 50 mls @ 100 mls/hr 05/19/18 22:00 05/19/18 23:34 Rocephin IV 100 mls/hr Q24H LIZZETH Administration Sodium Chloride 250 mls @ 15 mls/hr 05/19/18 00:30 IV .[id number] PRN SALINE FLUSH Insulin Glargine 10 units 05/19/18 00:24 05/19/18 21:37 Lantus ([facility]) SC 10 units BID LIZZETH Administration Insulin Human Lispro 0 unit 05/19/18 03:00 05/20/18 07:21 Humalog Kwikpen ([facility]) SQ Not Given ACHS & 3AM LIZZETH Protocol Lisinopril 40 mg 05/19/18 10:00 05/19/18 22:03 Zestril PO 40 mg BID LIZZETH Administration Magnesium Hydroxide 30 ml 05/19/18 00:24 Milk Of Magnesia PO DAILY PRN Constipation Metoprolol Succinate 100 mg 05/19/18 00:24 05/19/18 10:21 Toprol Xl (Beta Ángela) PO 100 mg DAILY LIZZETH Administration Mupirocin 1 applic 05/19/18 10:00 05/19/18 21:37 Bactroban TOPICAL 1 applicatio BID LIZZETH Administration Protocol Nystatin 1 applic 05/19/18 10:00 05/19/18 21:36 Mycostatin Powder TOPICAL 1 applicatio BID LIZZETH Administration Protocol Ondansetron HCl 4 mg 05/19/18 00:24 Zofran IV Q8H PRN PRN NAUSEA Potassium Chloride 40 meq 05/19/18 10:00 05/19/18 10:21 K-Dur PO 40 meq DAILY LIZZETH Administration Sodium Chloride 5 - 15 ml 05/19/18 00:30 05/19/18 15:30 IV 15 ml UD PRN Administration SALINE FLUSH Current Home Med List Medication Instructions Recorded Confirmed Type Aspirin [Aspirin, Baby] 81 mg PO DAILY 01/09/18 05/18/18 History Atenolol [Tenormin] 100 mg PO DAILY 01/09/18 01/09/18 History Clopidogrel Bisulfate [Plavix] 75 mg PO DAILY 01/09/18 05/18/18 History Duloxetine Hcl [Cymbalta] 60 mg PO DAILY 01/09/18 01/09/18 History Furosemide [Lasix] 20 mg PO DAILY 01/09/18 05/18/18 History Gabapentin [Gralise] 600 mg PO TID 01/09/18 05/18/18 History Hydrocodone/Acetaminophen 1 tab PO Q12H PRN PRN 01/09/18 05/18/18 History [Hydrocodone-Acetamin 7.5-325] Lovastatin [Mevacor] 40 mg PO DAILY 01/09/18 01/09/18 History Vitamin D 4,000 units PO BID 01/09/18 01/09/18 History Guaifenesin/D-Methorphan Hb 1 tab PO BID #20 tab.sr.12h 01/13/18 Rx [Humibid Dm] Insulin Glargine [Lantus SoloStar 5 units SC BID pen 01/13/18 05/18/18 Rx Pen] Ipratropium/Albuterol Sulfate 3 ml INHALATION Q4H.RT ampul.neb 01/13/18 Rx [Duoneb] Lisinopril [Zestril] 20 mg PO DAILY #30 tab 01/13/18 Rx levoFLOXacin tablet [Levaquin 250 mg PO DAILY@0600 #4 tab 01/13/18 Rx tablet] Amlodipine [Norvasc] 10 mg PO DAILY 05/18/18 05/18/18 History Amoxicillin/Potassium Clav 1 tab PO BID 05/18/18 05/18/18 History [Augmentin 875-125 Tablet] Atorvastatin Calcium 40 mg PO DAILY 05/18/18 05/19/18 History Clonidine HCl [Catapres] 0.1 mg PO BID 05/18/18 05/18/18 History Doxycycline Monohydrate 100 mg PO 05/18/18 History Duloxetine Hcl [Cymbalta] 30 mg PO DAILY 05/18/18 05/18/18 History Hydrochlorothiazide [Hctz] 25 mg PO DAILY 05/18/18 05/18/18 History Insulin Lispro [Humalog Kwikpen] 0 unit SQ 05/18/18 History Lisinopril [Zestril] 40 mg PO BID 05/18/18 05/18/18 History Metoprolol Succinate [Toprol Xl] 100 mg PO DAILY 05/18/18 05/19/18 History Prednisone 10 mg PO DAILY 05/18/18 05/18/18 History Assessment/Plan All Active Problems Acute kidney injury (Acute) Acute renal injury due to circulatory failure (Acute) Acute decompensated heart failure (Acute) large left mca distribution infarct: Sinus on telemetry, echo unremarkable. Risk factors are likely untreated obstructive sleep apnea and diabetes uncontrolled as well as hyperlipidemia. Unclear smoking history at this point although according to records she is a non-smoker.. She also has hypertension and kidney disease. * MRA suboptimal imaging due to elevated creatinine I will order an ultrasound of her carotid arteries to evaluate for stenosis * Continue telemetry monitoring * Continue aspirin and Plavix for now * PT/OT/speech therapy * Consider rehab, notified
[2018-05-20] MEDS: amLODIPine 10 MG Tablet PO (09:54)
[2018-05-20] MEDS: Lisinopril 40 MG Tablet PO (09:54)
[2018-05-20] MEDS: DULoxetine Hcl 30 MG Capsule PO (09:54)
[2018-05-20] MEDS: Gabapentin 100 MG Capsule PO ×3 (09:54→17:55)
[2018-05-20] MEDS: hydroCHLOROthiazide 25 MG Tablet PO (09:54)
[2018-05-20] MEDS: cloNIDine HCl 0.1 MG Tablet PO (09:54)
[2018-05-20] MEDS: Aspirin 81 MG TAB.CHEW PO (09:54)
[2018-05-20] MEDS: Furosemide 40 MG/4 ML Vial IV (09:54)
[2018-05-20] MEDS: Clopidogrel Bisulfate 75 MG Tablet PO (09:55)
[2018-05-20] MEDS: 0.9% NaCl Peripheral Flush Adult/Peds IV (09:55)
[2018-05-20] MEDS: Metoprolol(XL)Succ 100 MG Tablet PO (09:58)
[2018-05-20] MEDS: Nystatin Powder 15gm Bottle 1 APPLIC TOPICAL (10:13)
[2018-05-20] MEDS: Mupirocin Ointment 22gm Tube 1 APPLIC TOPICAL (10:13)
--- NOTE | 2018-05-20 10:37 | CDU_ITS ---
Reason For Study: CVA Rt. Velocities/BP Lt. Velocities/BP Prox CCA 110/18.8 cm/sec. Prox CCA 110/15.7 cm/sec. Mid CCA 93.8/19.3 cm/sec. Mid CCA 108/20.4 cm/sec. Dist CCA 80.3/16.4 cm/sec. Dist CCA 92.7/23.6 cm/sec. Prox ICA 66.8/18.9 cm/sec. Prox ICA 63.4/17.5 cm/sec. Mid ICA 74.6/14.9 cm/sec. Mid ICA 80.8/22.4 cm/sec. Dist ICA 61.9/19.3 cm/sec. Dist ICA 114/26.4 cm/sec. Rt. ICA/CCA = .8. Lt. ICA/CCA = 1.1. Prox ECA 148/18.1 cm/sec. Prox ECA 83.3/10.2 cm/sec. Rt. Vert. 42.8/9.97 cm/sec. Lt. Vert. 56.0/18.7 cm/sec. Right Extracranial There is intimal thickening but no significant atherosclerotic plaque noted in the right common carotid artery. There is intimal thickening but no significant atherosclerotic plaque noted in the right internal carotid artery. There is intimal thickening but no significant atherosclerotic plaque noted in the right external carotid artery. Antegrade flow is noted in the right vertebral artery. Left Extracranial There is intimal thickening but no significant atherosclerotic plaque noted in the left common carotid artery. There is intimal thickening but no significant atherosclerotic plaque noted in the left internal carotid artery. There is intimal thickening but no significant atherosclerotic plaque noted in the left external carotid artery. Antegrade flow is noted in the left vertebral artery. Procedure Carotid Duplex 20034. The exam was diagnostic. Exam performed portable in patient room. Interpretation Summary No significant atherosclerotic plaque or stenosis noted in the internal carotid arteries bilaterally. Flow within the vertebral arteries is antegrade bilaterally. Ordering Physician: Rc Ramos Performed By: Liban Johnson RVT
--- NOTE | 2018-05-20 11:51 | CASEMGMT ---
Addendum entered by Patti Law 05/20/18 12:15: SW received a call from patient's son, Kvng. He was in agreement with patient going to Inpatient Rehab Unit. RAN told him we are waiting on results of a test and as long as that is fine she will go today. Plan: [facility] 4th floor rehab unit. Patti NGUYEN Original Note: RAN spoke with Grace in The Rehab Unit and he feels patient would be a good rehab candidate. RNPriscilla said that she spoke with patient's son and he was in agreement with this plan. SW attempted to talk with patient, but she was drowsy and would not stay awake. SW left a pamphlet for rehab unit in her room. RAN also called patient's son and left him another voice mail confirming he is ok with rehab unit. Plan: Inpatient Rehab Unit Patti NGUYEN
[2018-05-20 12:15] LABS: Bedside Glucose 190 mg/dL (70-110)
--- NOTE | 2018-05-20 13:22 | US_ITS ---
STUDY: RENAL ULTRASOUND - COMPLETE REASON FOR EXAM: Female, 52 years old. Acute renal failure. TECHNIQUE: Ultrasound evaluation of the kidneys was performed with real-time and static dubon-scale imaging. COMPARISON: None. FINDINGS: RIGHT KIDNEY: Normal location of the right kidney, which is normal in size. The right kidney measures 11.3 cm x 5.2 cm x 5.0 cm. There is a normal cortex of the right kidney. The renal cortex measures 1.8 cm. There is no right renal mass or cyst. There are no right renal calculi. There is no right hydronephrosis. DISTAL RIGHT URETER: There is non-visualization of the distal right ureter. There is no demonstrated right ureterovesical junction calculus. There is no demonstrated right ureteral jet. LEFT KIDNEY: Normal location of the left kidney, which is normal in size. The left kidney measures 10.3 cm x 4.2 cm x 4.7 cm. There is a normal cortex of the left kidney. The renal cortex measures 1.3 cm. There is no left renal mass or cyst. There are no left renal calculi. There is no left hydronephrosis. DISTAL LEFT URETER: There is non-visualization of the distal left ureter. There is no demonstrated left ureterovesical junction calculus. There is no demonstrated left ureteral jet. BLADDER: A Lynn catheter is seen within the urinary bladder. The bladder is empty. US/Kidney and Bladder IMPRESSION: Normal ultrasound of the kidneys Electronically Signed: David Painting MD at 9:00 EST , Service support ,
--- NOTE | 2018-05-20 13:23 | DCINST_ITS ---
- Discharge Diagnoses Current Active Problems: Current Active and Chronic Problems Acute decompensated heart failure (Acute) Diabetes (Chronic) Reason(s) for Visit for Discharge Instructions: Confusion You will use the following diet at home:: Calorie/Carbohydrate Controlled (specify 1200, 1400, etc), Cardiac Your food should be the consistency of: Regular Your liquids should be the consistency of: Regular/Thin Discharge Activity: Return to Normal Activity Allergies/Adverse Reactions: Allergies No Known Allergies Allergy (Verified 05/18/18 18:45) Medications to take at Discharge Aspirin [Aspirin, Baby] 81 mg PO DAILY 01/09/18 Clopidogrel Bisulfate [Plavix] 75 mg PO DAILY 01/09/18 Duloxetine Hcl [Cymbalta] 60 mg PO DAILY 01/09/18 Gabapentin [Gralise] 600 mg PO TID 01/09/18 Hydrocodone/Acetaminophen [Hydrocodone-Acetamin 7.5-325] 1 tab PO Q12H PRN PRN 01/09/18 Guaifenesin/D-Methorphan Hb [Humibid Dm] 1 tab PO BID #20 tab.sr.12h 01/13/18 Ipratropium/Albuterol Sulfate [Duoneb] 3 ml INHALATION Q4H.RT ampul.neb 01/13/18 Amlodipine [Norvasc] 10 mg PO DAILY 05/18/18 Clonidine HCl [Catapres] 0.1 mg PO BID 05/18/18 Duloxetine Hcl [Cymbalta] 30 mg PO DAILY 05/18/18 Metoprolol Succinate [Toprol Xl] 100 mg PO DAILY 05/18/18 Albuterol Aerosols [Ventolin Aerosols] 2.5 mg INHALATION Q2H PRN PRN vial.neb. 05/20/18 Amoxicillin/Potassium Clav [Augmentin 875-125 Tablet] 1 tab PO BID #10 05/20/18 Atorvastatin Calcium [Lipitor] 40 mg PO QHS tablet 05/20/18 Gabapentin [Neurontin] 100 mg PO TIDCM capsule 05/20/18 Heparin Injection (Vial) [Heparin Na] 5,000 unit SC Q8 vial 05/20/18 Insulin Glargine [Lantus SoloStar Pen] 10 units SC BID pen 05/20/18 Insulin Lispro [Humalog KwikPen] See Protocol SQ ACHS & 3AM insuln.pen 05/20/18 Ipratropium/Albuterol Sulfate [Duoneb] 3 ml INHALATION Q4H.RT ampul.neb 05/20/18 Mupirocin [Bactroban] 1 applic TOPICAL BID tube 05/20/18 Nystatin Powder [Mycostatin Powder] 1 applic TOPICAL BID bottle 05/20/18 Ondansetron [Zofran] 4 mg IV Q8H PRN PRN vial 05/20/18 hydrALAZINE [Apresoline] 25 mg PO TID tablet 05/20/18 Primary Care Physician: Altagracia Doctor,Out of [NON-STAFF] - Please follow up with your Primary Care Physician in: within 1-2 weeks after discharge Test Results: Test results from this visit will be discussed in further detail at your follow- up appointment, if applicable. Proposed Discharge Date: 05/20/18
--- NOTE | 2018-05-20 13:34 | DS.PCM_ITS ---
Discharge Date and Diagnosis Date of Admission: 05/18/18 Date of Discharge: 05/20/18 - Primary Discharge Diagnosis Active and Suspected Problems Acute hypoxic respiratory failure Acute metabolic encephalopathy Acute CVA Acute on chronic diastolic CHF Community-acquired pneumonia AK I on CKD stage III Acute diarrhea, C. difficile ruled out - Secondary Discharge Diagnosis Chronic Problems Morbid obesity (Chronic) Hypertension (Chronic) Diabetes (Chronic) CKD stage III CAD status post stents Hospital Course and Treatment Imaging Results: 05/20/18 07:36 CT Brain [Brain/Head without Contrast] [CT] Routine 05/20/18 13:22 Kidney and Bladder [US] Urgent Clinical Impression(s) from Imaging Studies Brain CT 05/18/18 19:21 IMPRESSION: Findings suspicious for acute/subacute ischemic infarct in the left posterior temporal frontal and parietal lobes MRI recommended for more definitive evaluation Electronically Signed: Adilson Parada MD at 20:20 EST , Service support , ADDENDUM: 05/18/182033 IMPRESSION: Findings suspicious for acute/subacute ischemic infarct in the left posterior temporal frontal and parietal lobes MRI recommended for more definitive evaluation N.B. : The above information has been verbally conveyed by Adilson Parada MD to dr sedrick MD, on 05/18/2018 20:26:45 (ET). Electronically Signed: Adilson Parada MD at 20:20 EST , Service support , Chest X-Ray 05/18/18 20:00 IMPRESSION: Multifocal groundglass opacities suspicious for diffuse pneumonia. This is either persistent or recurrent. Small bilateral effusions. Mild to moderate cardiac enlargement. Electronically Signed: Charisse Peterson MD at 20:26 EST Tel , Service support , Brain MRI 05/19/18 00:24 IMPRESSION: Acute ischemic changes within the left posterior temporal, posterior frontal and parietal lobes Electronically Signed: Adilson Parada MD at 16:07 EST , Service support , ADDENDUM: 05/19/18 1625 IMPRESSION: Acute ischemic changes within the left posterior temporal, posterior frontal and parietal lobes N.B. : The above information has been verbally conveyed by Adilson Parada MD to Hayde Chicas RN, on 05/19/2018 16:17:37 (ET). Electronically Signed: Adilson Parada MD at 16:07 EST , Service support , Head MRA 05/19/18 00:24 IMPRESSION: Atherosclerotic changes without evidence for hemodynamically significant stenosis or occlusive thrombus. Electronically Signed: Adilson Parada MD at 16:18 EST , Service support , Neck MRA 05/19/18 00:24 IMPRESSION: Limited study due to artifact without definitive evidence for hemodynamically significant stenosis utilizing NASCET criteria Electronically Signed: Adilson Parada MD at 16:15 EST , Service support , Brain CT 05/20/18 07:36 IMPRESSION: Findings in comparison with the acute/subacute ischemic infarct in the territory of the left middle cerebral artery. Electronically Signed: David Painting MD at 15:10 EST , Service support , Renal Ultrasound 05/20/18 13:22 IMPRESSION: Normal ultrasound of the kidneys Electronically Signed: David Painting MD at 9:00 EST , Service support , Neurology Operations: None Procedures: 2-D Echocardiogram Summary of Care Provided: 52-year-old with multiple comorbidities including obesity, type II DM, CAD status post stent, hypertension who comes in with progressive confusion after recently being [facility], pneumonia, probable C. difficile. Patient was brought to [facility] by her sister for further workup. She was found to be confused, CT of the head as well as MRI of the brain showed left posterior, temporal, posterior frontal and parietal lobe CVA. Neurology was consulted. 2D echo was unremarkable. Patient's lipid profile was controlled. She was continue on aspirin and Plavix as well as statin. Repeat CT of the head was negative for any acute cerebral edema. Patient was continued on IV ceftriaxone and azithromycin. She was also continue on IV Lasix She was found to be hypoxic, and requiring 6 L of oxygen. She was seen and evaluated by PT and OT, and skilled for inpatient rehab. She also had acute diarrhea, C. difficile as well as enteric panel was negative Subjective: The day of discharge, patient appeared less confused, knows her name, no persevering or worse. No acute events overnight. Objective: General: Alert, Cooperative, No apparent distress - on 6L oxygen, Confused, obese HEENT: Atraumatic, PERRLA, EOMI, Normocephalic Oral: Moist Mucosa Neck: Supple, No JVD, Negative Carotid Bruits Lungs: Clear to auscultation, Normal air movement Cardiovascular: Regular rate, Regular Rhythm, Normal S1, Normal S2, No murmurs Abdomen: Bowel Sounds Present, Soft, Non Tender, Non-Distended, No Hepato-splenomegaly Extremities: No edema Skin: No rashes, No breakdown Musculoskeletal: No Tenderness to Palpation of Joints or Extremities Lymphatic: No Cervical, Supraclavicular, or Inguinal Adenopathy Neurological: Cranial nerves II-XII grossly intact, Neuro grossly intact Psych/Mental Status: Normal Affect, Appropriate - Physical Exam Vital Signs Temp Pulse Resp BP Pulse Ox 97.5 F L 72 16 160/70 H 95 05/20/18 05:25 05/20/18 12:58 05/20/18 10:43 05/20/18 09:58 05/20/18 10:43 Oxygen Flow Rate (L/min) 6 Oxygen Delivery Method Nasal Cannula Weight: 122.1 kg Body Mass Index (BMI) 49.5 Intake and Output for Last 24 Hours 05/18/18 05/19/18 05/20/18 23:59 23:59 23:59 Intake Total 1117 / 1117 769 / 769 Output Total 1725 / 1725 1125 / 1125 Balance -608 / -608 -356 / -356 Microbiology Past 72 Hours 05/18/18 21:30 Legionella Antigen - Final Urine Catheter - Lynn 05/18/18 21:30 Streptococcus pneumoniae Antigen (M - Final Urine Catheter - [place] Laboratory Tests Past 24 Hrs 05/19/18 05/20/18 05/20/18 04:30 05:15 05:15 WBC 13.3 H RBC 3.20 L Hgb 9.0 L Hct 28.4 L MCV 88.8 MCH 28.1 MCHC 31.7 L RDW 13.5 RDW Differential 41.9 Plt Count 241 MPV 12.0 Immature Gran % (Auto) 0.600 Neut % (Auto) 80.9 H Lymph % (Auto) 8.8 L [place] % (Auto) 5.5 Eos % (Auto) 4.0 Baso % (Auto) 0.2 Absolute Neuts (auto) 10.8 H Absolute Lymphs (auto) 1.17 Total Counted Not Reportable Sodium 140 Potassium 3.6 Chloride 106 Carbon Dioxide 23.0 BUN 62 H Creatinine 2.73 H Estim Creat Clear Calc 18.19 Est GFR (MDRD) Af Amer 24 L Est GFR (MDRD) Non-Af 19 L BUN/Creatinine Ratio 22.7 H Glucose 169 H Hemoglobin A1c 10.2 H Calcium 7.4 L Phosphorus 5.2 H Albumin 1.3 L POC Glucose 05/20/18 05/20/18 05/20/18 12:04 06:57 01:45 POC Glucose 190 H 146 H 235 H 05/19/18 05/19/18 21:20 17:28 POC Glucose 279 H 303 H Discharge Diet: Low fat/ Low Cholesterol, 8 Cup Fluid Restriciton, 2000 mg Sodium Diet, Carb Control Diet Discharge Activity: Return to Normal Activity Home Medications: Medications to take at Discharge Aspirin [Aspirin, Baby] 81 mg PO DAILY 01/09/18 Clopidogrel Bisulfate [Plavix] 75 mg PO DAILY 01/09/18 Duloxetine Hcl [Cymbalta] 60 mg PO DAILY 01/09/18 Gabapentin [Gralise] 600 mg PO TID 01/09/18 Hydrocodone/Acetaminophen [Hydrocodone-Acetamin 7.5-325] 1 tab PO Q12H PRN PRN 01/09/18 Guaifenesin/D-Methorphan Hb [Humibid Dm] 1 tab PO BID #20 tab.sr.12h 01/13/18 Amlodipine [Norvasc] 10 mg PO DAILY 05/18/18 Clonidine HCl [Catapres] 0.1 mg PO BID 05/18/18 Duloxetine Hcl [Cymbalta] 30 mg PO DAILY 05/18/18 Metoprolol Succinate [Toprol Xl] 100 mg PO DAILY 05/18/18 Albuterol Aerosols [Ventolin Aerosols] 2.5 mg INHALATION Q2H PRN PRN vial.neb. 05/20/18 Amoxicillin/Potassium Clav [Augmentin 875-125 Tablet] 1 tab PO BID 05/20/18 Atorvastatin Calcium [Lipitor] 40 mg PO QHS 05/20/18 Furosemide [Lasix] 40 mg PO BID 05/20/18 Gabapentin [Neurontin] 100 mg PO TIDCM 05/20/18 Heparin Injection (Vial) [Heparin Na] 5,000 unit SC Q8 vial 05/20/18 Insulin Glargine [Lantus SoloStar Pen] 10 units SC BID 05/20/18 Insulin Lispro [Humalog KwikPen] See Protocol SQ ACHS & 3AM 05/20/18 Ipratropium/Albuterol Sulfate [Duoneb] 3 ml INHALATION Q4H.RT 05/20/18 Ipratropium/Albuterol Sulfate [Duoneb] 3 ml INHALATION Q4H.RT 05/20/18 Mupirocin [Bactroban] 1 applic TOPICAL BID tube 05/20/18 Nystatin Powder [Mycostatin Powder] 1 applic TOPICAL BID bottle 05/20/18 Ondansetron [Zofran] 4 mg PO Q8H PRN PRN 05/20/18 hydrALAZINE [Apresoline] 25 mg PO TID 05/20/18 Primary Care Physician: Altagracia Doctor,Out of [NON-STAFF] - Please follow up with your Primary Care Physician in: within 1-2 weeks after discharge Disposition: Inpt Rehab Unit/Facility Minutes spent on discharge:: 45 Patient Condition:: Stable Medical Necessity - Tobacco Use Smoking Status: Former smoker Tobacco Use: Non-smoker Meaningful Use Info Meaningful Use Diagnoses (Choose all that apply): Ischemic CVA - CVA Therapy Assessed for PT,OT and/or ST?: Yes - Ischemic Stroke Antithrombotic order at d/c?: Yes Dx of Atrial fib/flutter?: No Anticoagulant at discharge?: No Reason anticoagulant not ordered: Treatment not Indicated Statins at discharge?: Yes Primary Dx Acute Ischemic CVA?: Yes IV tPA ordered during stay?: No Reason IV t-PA not ordered: Treatment not Indicated Code Visit Inpatient E&M: 04173 Disch Hosp
[2018-05-20] MEDS: Menthol/Lanolin/Calamine/Znox 113 GM Tube 1 APPLIC TOPICAL (14:44)
[2018-05-20] MEDS: hydrALAZINE 25 MG Tablet PO (14:45)
--- NOTE | 2018-05-20 15:57 | CASEMGMT ---
Patient can go to the Inpatient Rehab Unit when ready. RN notified. Plan: d/c to [facility] 4th floor rehab unit Patti NGUYEN
[2018-05-20 18:15] LABS: Bedside Glucose 236 mg/dL (70-110)
== END 2018-05-20 18:20 | DRG 64 ==
LOC: ED 20:05 → ICU 21:31 → PCU 05-19 08:38
PROVIDERS: Admitting Provider Hospitalist; Emergency Provider Emergency Medicine; Referring Provider Hospitalist; Visit Provider Internal Medicine
DX: I63.512 Cerebral infarction due to unspecified occlusion or stenosis of left middle cerebral artery (principal); G93.41 Metabolic encephalopathy; I50.33 Acute on chronic diastolic (congestive) heart failure; J96.01 Acute respiratory failure with hypoxia; J18.9 Pneumonia, unspecified organism; Z68.42 Body mass index [BMI] 45.0-49.9, adult; I13.0 Hypertensive heart and chronic kidney disease with heart failure and stage 1 through stage 4 chronic kidney disease, or unspecified chronic kidney disease; N17.9 Acute kidney failure, unspecified; I25.10 Atherosclerotic heart disease of native coronary artery without angina pectoris; E66.01 Morbid (severe) obesity due to excess calories; E11.40 Type 2 diabetes mellitus with diabetic neuropathy, unspecified; L30.4 Erythema intertrigo; N18.3 Chronic kidney disease, stage 3 (moderate); E11.22 Type 2 diabetes mellitus with diabetic chronic kidney disease; E11.65 Type 2 diabetes mellitus with hyperglycemia; R19.7 Diarrhea, unspecified; Z87.891 Personal history of nicotine dependence; I25.2 Old myocardial infarction; Z95.5 Presence of coronary angioplasty implant and graft; Z79.4 Long term (current) use of insulin
CPT/HCPCS: 36415; 36600; 51702; 70450; 70544; 70547; 70551; 71045; 76770; 80048; 80061; 80069; 80076; 81001; 82803; 82962; 83036; 83605; 83880; 84484; 85025; 85610; 87040; 87449; 87506; 87641; 92507; 92523; 93005; 93306; 93880; 94640; 94667; 94668; 97162; 97166; 97530; 97535; 97802; 99285; J7030; A4216; J1940

== ENCOUNTER 2018-05-20 18:45 | Inpatient (IN) | payer MEDICARE, MEDICAID, SELFPAY ==
[2018-05-20 16:13] VITALS: BMI 49.5
[2018-05-20 19:54] VITALS: BMI 48.9
--- NOTE | 2018-05-20 20:00 | NURSING ---
Pt in room reclined in bed with tv on. Denies pain and VS WNL.
[2018-05-20 21:00] VITALS: BP 155/80; PULSE 18; RESP 18; TEMP 36.6; O2SAT 85
[2018-05-20 21:20] VITALS: BMI 48.9
[2018-05-20 22:00] VITALS: BP 150/78; PULSE 78; RESP 18; TEMP 36.6; O2SAT 95; BMI 48.9
--- NOTE | 2018-05-20 22:03 | NURSING ---
Pharmacy notified regarding inhaler conflict order. Pharmacy reports that they resolve issue per protocol and order override performed.
[2018-05-20] MEDS: Atorvastatin Calcium 40 MG Tablet PO ×2 (22:54→22:58)
[2018-05-20] MEDS: Insulin Lispro 100 UNIT/ML INSULN.PEN SC (22:55)
[2018-05-20 22:57] VITALS: BP 152/73; PULSE 78
[2018-05-20] MEDS: hydrALAZINE 25 MG Tablet PO (22:57)
[2018-05-20] MEDS: Amox/Clavulanate 500 MG Tablet PO (22:58)
[2018-05-21] VITALS (8 sets, daily range): BP systolic 155–165; BP diastolic 72–91; PULSE 76–83; RESP 16–18; TEMP 36.6–36.7; O2SAT 90–93; BMI 48.9
[2018-05-21 00:01] LABS: Bedside Glucose 192 mg/dL (70-110)
[2018-05-21] MEDS: Insulin Lispro 100 UNIT/ML INSULN.PEN SC ×5 (03:22→20:04)
[2018-05-21 04:45] LABS: Bedside Glucose 171 mg/dL (70-110)
[2018-05-21 05:55] LABS: Hematocrit 31.8 % (37-47); Hemoglobin 10.3 g/dl (12.0-15.0); Mean Corp Hgb Conc 32.4 g/gl (32-36); Mean Corpuscular Hgb 28.8 pg (27.0-32.0); Mean Corpuscular Volume 88.8 fL (81-99); Mean Platelet Vol. 12.1 fl (6.2-12.0); Platelet Count 259 K/mm3 (150-450); RBC Distribution Width CV 13.6 % (11.6-14.6); RBC Distribution Width SD 41.7 fl (35.1-43.9); Red Blood Count 3.58 M/mm3 (4.2-5.4); White Blood Count 18.1 K/mm3 (4.4-11.0)
[2018-05-21 05:57] LABS: Scan Indicated on CBC? Y/N NO
[2018-05-21] MEDS: hydrALAZINE 25 MG Tablet PO ×2 (06:02→13:08)
[2018-05-21 06:11] LABS: Anion Gap 11 (5-15); BUN 55 mg/dL (7-18); BUN/Creat Ratio 22.5 RATIO (10-20); Calcium,Total 7.8 mg/dL (8.5-10.1); Chloride 107 mmol/L (98-107); Creatinine, Serum 2.44 mg/dL (0.55-1.02); EST Glomerular Filtration Rate 22 mL/min (>60); Est Glom Filt Rate - Afr Amer 27 mL/min (>60); Estimated Creatinine Clearance 20.35 ml/min; Glucose 163 mg/dL (74-106); Sodium Level 142 mmol/L (136-145)
[2018-05-21] MEDS: Ipratropium/Albuterol Sulfate 3 ML AMPUL.NEB INHALATION ×3 (06:28→18:45)
[2018-05-21 07:05] LABS: Bedside Glucose 151 mg/dL (70-110)
--- NOTE | 2018-05-21 07:51 | PCM.PN.HOSP ---
Subjective: Patient was seen and examined. Admitted yesterday from the hospital with metabolic encephalopathy secondary to large left posterior, temporal, frontal and parietal lobes CVA. Patient is being evaluated by speech therapy because there was concern about swallowing overnight. She denied any new complaints. She is much alert, answers questions regularly. No other acute events overnight. Objective: General: Alert, Cooperative, No apparent distress - on 6L oxygen, Confused HEENT: Atraumatic, PERRLA, EOMI, Normocephalic Oral: Moist Mucosa Neck: Supple, No JVD, Negative Carotid Bruits Lungs: Clear to auscultation, Normal air movement Cardiovascular: Regular rate, Regular Rhythm, Normal S1, Normal S2, No murmurs Abdomen: Bowel Sounds Present, Soft, Non Tender, Non-Distended, No Hepato-splenomegaly, multiple skin tears over the anterior abdominal wall, and in abdominal wall folds as well as abdominal wall Kayla intertrigo. Extremities: No edema Skin: No rashes, No breakdown Musculoskeletal: No Tenderness to Palpation of Joints or Extremities Lymphatic: No Cervical, Supraclavicular, or Inguinal Adenopathy Neurological: Cranial nerves II-XII grossly intact, Neuro grossly intact Psych/Mental Status: Normal Affect, Appropriate Vitals/I&O's: Vital Signs Temp Pulse Resp BP Pulse Ox 98.0 F 78 18 158/79 H 92 05/21/18 07:00 05/21/18 07:00 05/21/18 07:00 05/21/18 07:00 05/21/18 07:00 Oxygen Flow Rate (L/min) 5 Oxygen Delivery Method Room Air Weight: 120.5 kg Body Mass Index (BMI) 48.9 Intake and Output for Last 24 Hours 05/19/18 05/20/18 05/21/18 23:59 23:59 23:59 Output Total 700 / 700 Balance -700 / -700 Laboratory Results 05/20/18 22:49: POC Glucose 192 H 05/21/18 03:21: POC Glucose 171 H 05/21/18 05:30: WBC 18.1 H, RBC 3.58 L, Hgb 10.3 L, Hct 31.8 L, MCV 88.8, MCH 28.8, MCHC 32.4, RDW 13.6, RDW Differential 41.7, Plt Count 259, MPV 12.1 H 05/21/18 05:30: Sodium 142, Potassium 4.0, Chloride 107, Carbon Dioxide 24.0, Anion Gap 11, BUN 55 H, Creatinine 2.44 H, Estim Creat Clear Calc 20.35, Est GFR (MDRD) Af Amer 27 L, Est GFR (MDRD) Non-Af 22 L, BUN/Creatinine Ratio 22.5 H, Glucose 163 H, Calcium 7.8 L 05/21/18 06:55: POC Glucose 151 H Current Medications Acetaminophen (Tylenol) 650 mg PO Q6H PRN PRN PRN Reason: Mild Pain (0-3/10)/Headache Hydrocodone Bitart/Acetaminophen ([place] 5mg-325mg) 1 tablet PO Q12H PRN PRN PRN Reason: PAIN Albuterol Sulfate (Ventolin Aerosols) 2.5 mg INHALATION Q2H PRN PRN PRN Reason: SHORTNESS OF BREATH Albuterol/Ipratropium (Duoneb) 3 ml INHALATION Q4H.RT [facility] Last Admin: 05/21/18 06:28 Dose: 3 ml Amlodipine Besylate (Norvasc) 10 mg PO DAILY [facility] Amoxicillin/Clavulanate Potassium (Augmentin Tablet) 500 mg PO BID [facility] Last Admin: 05/20/18 22:58 Dose: 500 mg Aspirin (Aspirin, Baby) 81 mg PO DAILY [facility] Atorvastatin Calcium (Lipitor) 40 mg PO QHS [facility] Last Admin: 05/20/18 22:58 Dose: 40 mg Bisacodyl (Dulcolax) 10 mg RECTAL .PRN X 1 PRN PRN Reason: Constipation Calamine/Phenol (Calmoseptine Ointment) 1 applic TOPICAL BID PRN; Protocol PRN Reason: ANAL/RECTAL IRRITATIONS Clopidogrel Bisulfate (Plavix) 75 mg PO DAILY [facility] Enoxaparin Sodium (Lovenox) 30 mg SC DAILY [facility] Furosemide (Lasix) 40 mg PO BIDLX [facility] Gabapentin (Neurontin) 100 mg PO TIDCM [facility] Hydralazine HCl (Apresoline) 25 mg PO TID [facility] Last Admin: 05/21/18 06:02 Dose: 25 mg Insulin Glargine (Lantus (Bk)) 10 units SC BID [facility] Last Admin: 05/20/18 22:54 Dose: 10 u Insulin Human Lispro (Humalog Kwikpen (Bkc)) 0 unit SC ACHS & 3AM LIZZETH; Protocol Last Admin: 05/21/18 03:22 Dose: 2 u Magnesium Hydroxide (Milk Of Magnesia) 30 ml PO .PRN X 1 PRN PRN Reason: Constipation Metoprolol Succinate (Toprol Xl (Beta Ángela)) 100 mg PO DAILY [facility] Nystatin (Mycostatin Powder) 1 applic TOPICAL BID [facility]; Protocol Ondansetron HCl (Zofran) 4 mg PO Q8H PRN PRN PRN Reason: NAUSEA Senna/Docusate Sodium (Senokot-S, Brenda-Colace) 2 tablet PO BID [facility] Last Admin: 05/20/18 22:57 Dose: Not Given Medical Necessity - Tobacco Use Smoking Status: Former smoker Assessment/Plan All Active Problems Acute kidney injury (Acute) Acute renal injury due to circulatory failure (Acute) Acute decompensated heart failure (Acute) 52-year-old with multiple comorbidities including obesity, type II DM, CAD status post stent, hypertension who comes in with progressive confusion after recently being admitted to [facility] [place] for influenza, pneumonia, probable C. difficile. 1. Debility secondary to concurrent medical comorbidities, admitted for intensive PT and OT evaluations. 2. Acute metabolic encephalopathy secondary to acute CVA, patient is oriented x1, continue to monitor 3. Acute left posterior, temporal, posterior frontal and parietal lobes CVA, no history of atrial fibrillation, 2d-ECHO shows no shunting, or valvular lesions, on aspirin and Plavix, statin, 4. Acute on chronic diastolic CHF, 65%/pulmonary hypertension, RVSP 43, continue on Lasix 40 mg PO BID, strict I's and O's, CHF protocol, labs in a.m. 4. Possible HCAP, recently treated in [facility], on Augmentin, continued breathing treatments 5. CARYN on CKD stage 3, creatinine is improving, renal ultrasound is negative, will continue to trend 6. Hypertension, uncontrolled, continue on amlodipine, metoprolol, hydralazine. Patient is off lisinopril on account of CARYN on CKD 7. Skin tears of the anterior abdominal wall, severe candidal intertrigo of the abdominal wall, wound nurse consulted, on nystatin, topical wound preparation 8. Type 2 DM, blood sugars are controlled, continue on Lantus, insulin sliding scale with accucheks 9. CAD status post stent, on aspirin, statin, metoprolol, lisinopril 10. Morbid obesity, BMI 48.9 11. DVT PPx- Lovenox SC Code Visit Inpatient E&M: 49607 Subs Hosp L2
[2018-05-21] MEDS: Furosemide 40 MG Tablet PO ×2 (09:32→17:15)
[2018-05-21] MEDS: Amox/Clavulanate 500 MG Tablet PO ×2 (09:32→20:05)
[2018-05-21] MEDS: Metoprolol(XL)Succ 100 MG Tablet PO (09:32)
[2018-05-21] MEDS: Clopidogrel Bisulfate 75 MG Tablet PO (09:32)
[2018-05-21] MEDS: amLODIPine 10 MG Tablet PO (09:32)
[2018-05-21] MEDS: Aspirin 81 MG TAB.CHEW PO (09:32)
[2018-05-21] MEDS: Enoxaparin 30 MG/0.3 ML Syringe SC (09:37)
[2018-05-21] MEDS: Nystatin Powder 15gm Bottle 1 APPLIC TOPICAL ×2 (09:37→20:01)
[2018-05-21] MEDS: DULoxetine Hcl 60 MG Capsule PO (09:38)
--- NOTE | 2018-05-21 11:20 | VDLE_ITS ---
Reason For Study: SHORTNESS OF BREATH RIGHT LEFT GSV is normal. GSV is normal. CFV is compressible, spontaneous, competent CFV is compressible, spontaneous, competent, and demonstrates pulsatile venous flow. and demonstrates pulsatile venous flow. FV is compressible, spontaneous, competent FV is compressible, spontaneous, competent and demonstrates pulsatile venous flow. and demonstrates pulsatile venous flow. POP V is compressible, spontaneous, competent POP V is compressible, spontaneous, competent and demonstrates pulsatile venous flow. and demonstrates pulsatile venous flow. T/P Trunk is compressible. T/P Trunk is compressible. PTV is compressible. PTV is compressible. RT PerV is compressible. LT PerV is compressible. Procedure Soleus v dilated and non-compressible. Exam performed portable in patient room. A preliminary report was called and/or faxed to RU nurse. Interpretation Summary Acute deep vein thrombosis is noted in the left soleus vein. The remainder of the left lower extremity deep venous system is patent and compressible. Deep veins of the right lower extremity are patent and compressible segmentally. There is no evidence of right lower extremity deep vein thrombosis. Valvular competence appears intact within the proximal deep venous systems bilaterally. The greater saphenous veins appear bilaterally patent and compressible segmentally. Pulsatile flow is noted in the deep venous system bilaterally, suggesting the presence of elevated central venous pressure (i.e. congestive heart failure, tricuspid valve insufficiency, etc.). Clinical correlation is advised. Ordering Physician: Rc Ramos Referring Physician: Rc Ramos Performed By: Dilcia Rausch RVT
--- NOTE | 2018-05-21 11:23 | PCM.HP.STD ---
History of Present Illness Date of Admission: 05/21/18 Chief Complaint: Debility This is a 52-year-old right-handed white female admitted to the [facility] acute rehab unit for debility status post hospitalization for acute left MCA distribution stroke. The patient was admitted to the hospital 2 days ago, for essentially nonspecific confusion. An MRI was performed which disclosed a large left MCA distribution stroke. Other workup was negative including telemetry monitoring, echocardiogram, and carotid ultrasound. MRA of the neck was of low quality and inconclusive. Therapies were initiated, the patient was previously independent and it was felt that it was appropriate to discharge her and admit her to the rehab unit for further convalescence and rehabilitation so that she could return to her prior level of functional independence. She does have complicating issues including COPD, diabetes, hypertension and morbid obesity. Per my consultation: The patient is a 52 year old F admitted to [facility] in [place] on 05/08/18 and discharged 05/14/18 with a diagnosis of influenza and ammonia as well as uncontrolled diabetes and hypertension. Also a recent hospitalization for abdominal wall cellulitis. The patient is not able to tell me the history of present illness currently, history is obtained from records as well as from other hospital staff. The hospital records from [facility] indicates that there were no neurologic issues at that time. No neuroimaging was performed. He is now admitted with confusion, CAT scan and MRI done here at [facility] does disclosed left MCA distribution infarct. Into the record Ashlyn is already on aspirin and Plavix. Past Medical History Past Medical History (Chronic Problems): Chronic Problems Morbid obesity (Chronic) Hypertension (Chronic) Diabetes (Chronic) Allergies No Known Allergies Allergy (Verified 05/18/18 18:45) Home Medications: Ambulatory Orders Medication Instructions Recorded Aspirin [Aspirin, Baby] 81 mg PO DAILY 01/09/18 Clopidogrel Bisulfate [Plavix] 75 mg PO DAILY 01/09/18 Duloxetine Hcl [Cymbalta] 60 mg PO DAILY 01/09/18 Gabapentin [Gralise] 600 mg PO TID 01/09/18 Hydrocodone/Acetaminophen 1 tab PO Q12H PRN PRN 01/09/18 [Hydrocodone-Acetamin 7.5-325] Guaifenesin/D-Methorphan Hb 1 tab PO BID #20 tab.sr.12h 01/13/18 [Humibid Dm] Amlodipine [Norvasc] 10 mg PO DAILY 05/18/18 Clonidine HCl [Catapres] 0.1 mg PO BID 05/18/18 Duloxetine Hcl [Cymbalta] 30 mg PO DAILY 05/18/18 Metoprolol Succinate [Toprol Xl] 100 mg PO DAILY 05/18/18 Albuterol Aerosols [Ventolin 2.5 mg INHALATION Q2H PRN PRN 05/20/18 Aerosols] vial.neb. Amoxicillin/Potassium Clav 1 tab PO BID 05/20/18 [Augmentin 875-125 Tablet] Atorvastatin Calcium [Lipitor] 40 mg PO QHS 05/20/18 Furosemide [Lasix] 40 mg PO BID 05/20/18 Gabapentin [Neurontin] 100 mg PO TIDCM 05/20/18 Heparin Injection (Vial) [Heparin 5,000 unit SC Q8 vial 05/20/18 Na] Insulin Glargine [Lantus SoloStar 10 units SC BID 05/20/18 Pen] Insulin Lispro [Humalog KwikPen] See Protocol SQ ACHS & 3AM 05/20/18 Ipratropium/Albuterol Sulfate 3 ml INHALATION Q4H.RT 05/20/18 [Duoneb] Ipratropium/Albuterol Sulfate 3 ml INHALATION Q4H.RT 05/20/18 [Duoneb] Mupirocin [Bactroban] 1 applic TOPICAL BID tube 05/20/18 Nystatin Powder [Mycostatin Powder] 1 applic TOPICAL BID bottle 05/20/18 Ondansetron [Zofran] 4 mg PO Q8H PRN PRN 05/20/18 hydrALAZINE [Apresoline] 25 mg PO TID 05/20/18 Surgical History: - - Coronary stents. Patient is confused and further history cannot be obtained. Smoking Status: Former smoker - *Family History Maternal History Items: Diabetes, Heart Disease Paternal History Items: Heart Disease, Hypertension Review of Systems Constitutional: Denies: Chills, Fever, Weight Change HEENT: Denies: Head Aches, Sinus Congestion, Sinus Drainage Cardiovascular: Denies: Chest Pain, Palpitations Respiratory: Denies: Cough, Shortness of breath at rest, Sputum production Gastrointestinal: Denies: Abdominal Pain, Nausea, Vomiting Genitourinary: Denies: Dysuria Musculoskeletal: Denies: Joint Pain, Joint Tenderness Skin: Denies: Rash, Wounds Neurological: Denies: Numbness, Tingling, Focal weakness Psychiatric: Denies: Anxiety, Depression, Homicidal Ideations, Suicidal Ideations Hematologic/ Lymphatic: Denies: Easy Bruising, Easy Bleeding VTE Information - Inpt Only VTE Present on Admission: Yes VTE Pharm Prophylaxis ordered?: Yes Objective: The patient is short of breath with exertion She continues to experience receptive and expressive a aphasia There is a right field cut No other cranial nerve deficits Mild drift of the right upper and right lower extremity but she does not hit the bed NIH stroke score is 6 - Physical Exam General: Alert, No apparent distress Vital Signs Temp Pulse Resp BP Pulse Ox 36.7 C 78 18 158/79 H 92 05/21/18 07:00 05/21/18 09:32 05/21/18 07:00 05/21/18 09:32 05/21/18 07:00 Oxygen Flow Rate (L/min) 5 Oxygen Delivery Method Room Air Weight: 120.5 kg Body Mass Index (BMI) 48.9 Intake and Output for Last 24 Hours 05/19/18 05/20/18 05/21/18 23:59 23:59 23:59 Intake Total 0 / 0 Output Total 700 / 700 Balance -700 / -700 Laboratory Tests Past 24 Hrs 05/21/18 05/21/18 05:30 05:30 WBC 18.1 H RBC 3.58 L Hgb 10.3 L Hct 31.8 L MCV 88.8 MCH 28.8 MCHC 32.4 RDW 13.6 RDW Differential 41.7 Plt Count 259 MPV 12.1 H Sodium 142 Potassium 4.0 Chloride 107 Carbon Dioxide 24.0 Anion Gap 11 BUN 55 H Creatinine 2.44 H Estim Creat Clear Calc 20.35 Est GFR (MDRD) Af Amer 27 L Est GFR (MDRD) Non-Af 22 L BUN/Creatinine Ratio 22.5 H Glucose 163 H Calcium 7.8 L POC Glucose 05/21/18 05/21/18 05/20/18 06:55 03:21 22:49 POC Glucose 151 H 171 H 192 H Current Medications Generic Name Dose Route Start Last Admin Trade Name Freq PRN Reason Stop Dose Admin Acetaminophen 650 mg 05/20/18 20:57 Tylenol PO Q6H PRN PRN Mild Pain (0-3/10)/Headache Hydrocodone Bitart/Acetaminophen 1 tablet 05/20/18 23:06 [place] 5mg-325mg PO Q12H PRN PRN PAIN Albuterol Sulfate 2.5 mg 05/20/18 21:49 Ventolin Aerosols INHALATION Q2H PRN PRN SHORTNESS OF BREATH Albuterol/Ipratropium 3 ml 05/20/18 22:00 05/21/18 06:28 Duoneb INHALATION 3 ml Q4H.RT LIZZETH Administration Amlodipine Besylate 10 mg 05/21/18 10:00 05/21/18 09:32 Norvasc PO 10 mg DAILY LIZZETH Administration Amoxicillin/Clavulanate Potassium 500 mg 05/20/18 23:00 05/21/18 09:32 Augmentin Tablet PO 500 mg BID LIZZETH Administration Aspirin 81 mg 05/21/18 10:00 05/21/18 09:32 Aspirin, Baby PO 81 mg DAILY [facility] Administration Atorvastatin Calcium 40 mg 05/20/18 23:00 05/20/18 22:58 Lipitor PO 40 mg QHS [facility] Administration Bisacodyl 10 mg 05/20/18 20:57 Dulcolax RECTAL .PRN X 1 PRN Constipation Calamine/Phenol 1 applic 05/21/18 07:10 Calmoseptine Ointment TOPICAL BID PRN ANAL/RECTAL IRRITATIONS Protocol Clopidogrel Bisulfate 75 mg 05/21/18 10:00 05/21/18 09:32 Plavix PO 75 mg DAILY [facility] Administration Duloxetine HCl 60 mg 05/21/18 10:00 05/21/18 09:38 Cymbalta PO 60 mg DAILY [facility] Administration Enoxaparin Sodium 30 mg 05/21/18 10:00 05/21/18 09:37 Lovenox SC 30 mg DAILY [facility] Administration Furosemide 40 mg 05/21/18 10:00 05/21/18 09:32 Lasix PO 40 mg BIDLX [facility] Administration Gabapentin 300 mg 05/21/18 12:00 Neurontin PO TIDCM [facility] Hydralazine HCl 25 mg 05/20/18 23:00 05/21/18 06:02 Apresoline PO 25 mg TID [facility] Administration Insulin Glargine 10 units 05/20/18 23:00 05/21/18 09:36 Lantus (Bkc) SC 10 u BID [facility] Administration Insulin Human Lispro 0 unit 05/20/18 23:00 05/21/18 09:32 Humalog Venkatesh (Bk) SC 2 u ACHS & 3AM LIZZETH Administration Protocol Magnesium Hydroxide 30 ml 05/20/18 20:57 Milk Of Magnesia PO .PRN X 1 PRN Constipation Metoprolol Succinate 100 mg 05/21/18 10:00 05/21/18 09:32 Toprol Xl (Beta Ángela) PO 100 mg DAILY LIZZETH Administration Nystatin 1 applic 05/21/18 10:00 05/21/18 09:37 Mycostatin Powder TOPICAL 1 applicatio BID LIZZETH Administration Protocol Ondansetron HCl 4 mg 05/20/18 21:49 Zofran PO Q8H PRN PRN NAUSEA Senna/Docusate Sodium 2 tablet 05/20/18 22:00 05/21/18 09:34 Senokot-S, Brenda-Colace PO Not Given BID [facility] Assessment/Plan All Active Problems Acute kidney injury (Acute) Acute renal injury due to circulatory failure (Acute) Acute decompensated heart failure (Acute) 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 I do not see history of COPD in the records. Recent chest x-ray was nonspecifically abnormal. Goal of therapy is rehabilitation to the extent that she regains her prior level of functional independence Plan: Physical therapy for gait and balance Occupational Therapy for ADLs Bowel protocol Speech therapy PRN analgesics DVT prophylaxis: Lovenox Severe shortness of breath: Currently she has on 6 L with exertion. I will repeat a chest x-ray and obtain bilateral lower extremity venous ultrasounds Diabetes: Continue sliding scale insulin
--- NOTE | 2018-05-21 11:25 | RAD_ITS ---
STUDY: X-RAY CHEST REASON FOR EXAM: Female, 52 years old. Shortness breath, dyspnea. History of stroke. TECHNIQUE: Single AP portable upright view of the chest. COMPARISON: Portable AP upright chest x-ray May 18, 2018 and FINDINGS: There are persistent, diffuse mixed interstitial and alveolar pulmonary infiltrates consistent with infection, hemorrhage, or pulmonary edema. Allowing for differences in patient positioning, there may be some clearing in the right perihilar and bibasilar regions, while density in the upper left lung is stable to slightly worsened. There is no demonstrated pleural abnormality. There is stable mild cardiac enlargement. Normal mediastinum and kristi. Normal visualized aortic arch and descending thoracic aorta. There are stable degenerative changes of the visualized thoracic spine. Normal visualized ribs, clavicles, and shoulders. There is no demonstrated abnormality of the visualized soft tissue structures of the upper abdomen. RAD/Chest 1 View (Portable) IMPRESSION: 1. Slight improvement of mixed interstitial and alveolar infiltrates reflecting infection, hemorrhage, or pulmonary edema in the right perihilar region and both lung bases. There is borderline worsening in the left upper lobe. 2. Stable mild cardiac enlargement. Electronically Signed: Aureliano Fox MD at 15:45 EST , Service support ,
[2018-05-21 11:26] LABS: Bedside Glucose 181 mg/dL (70-110)
--- NOTE | 2018-05-21 11:28 | HP.PCM_ITS ---
History of Present Illness Date of Admission: 05/21/18 Chief Complaint: Debility This is a 52-year-old right-handed white female admitted to the [facility] acute rehab unit for debility status post hospitalization for acute left MCA distribution stroke. The patient was admitted to the hospital 2 days ago, for essentially nonspecific confusion. An MRI was performed which disclosed a large left MCA distribution stroke. Other workup was negative including telemetry monitoring, echocardiogram, and carotid ultrasound. MRA of the neck was of low quality and inconclusive. Therapies were initiated, the patient was previously independent and it was felt that it was appropriate to discharge her and admit her to the rehab unit for further convalescence and rehabilitation so that she could return to her prior level of functional independence. She does have complicating issues including COPD, diabetes, hypertension and morbid obesity. Per my consultation: The patient is a 52 year old F admitted to [facility] in [place] on 05/08/18 and discharged 05/14/18 with a diagnosis of influenza and ammonia as well as uncontrolled diabetes and hypertension. Also a recent hospitalization for abdominal wall cellulitis. The patient is not able to tell me the history of present illness currently, history is obtained from records as well as from other hospital staff. The hospital records from [facility] indicates that there were no neurologic issues at that time. No neuroimaging was performed. He is now admitted with confusion, CAT scan and MRI done here at [facility] does disclosed left MCA distribution infarct. Into the record Ashlyn is already on aspirin and Plavix. Past Medical History Past Medical History (Chronic Problems): Chronic Problems Morbid obesity (Chronic) Hypertension (Chronic) Diabetes (Chronic) Allergies No Known Allergies Allergy (Verified 05/18/18 18:45) Home Medications: Ambulatory Orders Medication Instructions Recorded Aspirin [Aspirin, Baby] 81 mg PO DAILY 01/09/18 Clopidogrel Bisulfate [Plavix] 75 mg PO DAILY 01/09/18 Duloxetine Hcl [Cymbalta] 60 mg PO DAILY 01/09/18 Gabapentin [Gralise] 600 mg PO TID 01/09/18 Hydrocodone/Acetaminophen 1 tab PO Q12H PRN PRN 01/09/18 [Hydrocodone-Acetamin 7.5-325] Guaifenesin/D-Methorphan Hb 1 tab PO BID #20 tab.sr.12h 01/13/18 [Humibid Dm] Amlodipine [Norvasc] 10 mg PO DAILY 05/18/18 Clonidine HCl [Catapres] 0.1 mg PO BID 05/18/18 Duloxetine Hcl [Cymbalta] 30 mg PO DAILY 05/18/18 Metoprolol Succinate [Toprol Xl] 100 mg PO DAILY 05/18/18 Albuterol Aerosols [Ventolin 2.5 mg INHALATION Q2H PRN PRN 05/20/18 Aerosols] vial.neb. Amoxicillin/Potassium Clav 1 tab PO BID 05/20/18 [Augmentin 875-125 Tablet] Atorvastatin Calcium [Lipitor] 40 mg PO QHS 05/20/18 Furosemide [Lasix] 40 mg PO BID 05/20/18 Gabapentin [Neurontin] 100 mg PO TIDCM 05/20/18 Heparin Injection (Vial) [Heparin 5,000 unit SC Q8 vial 05/20/18 Na] Insulin Glargine [Lantus SoloStar 10 units SC BID 05/20/18 Pen] Insulin Lispro [Humalog KwikPen] See Protocol SQ ACHS & 3AM 05/20/18 Ipratropium/Albuterol Sulfate 3 ml INHALATION Q4H.RT 05/20/18 [Duoneb] Ipratropium/Albuterol Sulfate 3 ml INHALATION Q4H.RT 05/20/18 [Duoneb] Mupirocin [Bactroban] 1 applic TOPICAL BID tube 05/20/18 Nystatin Powder [Mycostatin Powder] 1 applic TOPICAL BID bottle 05/20/18 Ondansetron [Zofran] 4 mg PO Q8H PRN PRN 05/20/18 hydrALAZINE [Apresoline] 25 mg PO TID 05/20/18 Surgical History: - - Coronary stents. Patient is confused and further history cannot be obtained. Smoking Status: Former smoker - *Family History Maternal History Items: Diabetes, Heart Disease Paternal History Items: Heart Disease, Hypertension Review of Systems Constitutional: Denies: Chills, Fever, Weight Change HEENT: Denies: Head Aches, Sinus Congestion, Sinus Drainage Cardiovascular: Denies: Chest Pain, Palpitations Respiratory: Denies: Cough, Shortness of breath at rest, Sputum production Gastrointestinal: Denies: Abdominal Pain, Nausea, Vomiting Genitourinary: Denies: Dysuria Musculoskeletal: Denies: Joint Pain, Joint Tenderness Skin: Denies: Rash, Wounds Neurological: Denies: Numbness, Tingling, Focal weakness Psychiatric: Denies: Anxiety, Depression, Homicidal Ideations, Suicidal Ideations Hematologic/ Lymphatic: Denies: Easy Bruising, Easy Bleeding VTE Information - Inpt Only VTE Present on Admission: Yes VTE Pharm Prophylaxis ordered?: Yes Objective: The patient is short of breath with exertion She continues to experience receptive and expressive a aphasia There is a right field cut No other cranial nerve deficits Mild drift of the right upper and right lower extremity but she does not hit the bed NIH stroke score is 6 - Physical Exam General: Alert, No apparent distress Vital Signs Temp Pulse Resp BP Pulse Ox 36.7 C 78 18 158/79 H 92 05/21/18 07:00 05/21/18 09:32 05/21/18 07:00 05/21/18 09:32 05/21/18 07:00 Oxygen Flow Rate (L/min) 5 Oxygen Delivery Method Room Air Weight: 120.5 kg Body Mass Index (BMI) 48.9 Intake and Output for Last 24 Hours 05/19/18 05/20/18 05/21/18 23:59 23:59 23:59 Intake Total 0 / 0 Output Total 700 / 700 Balance -700 / -700 Laboratory Tests Past 24 Hrs 05/21/18 05/21/18 05:30 05:30 WBC 18.1 H RBC 3.58 L Hgb 10.3 L Hct 31.8 L MCV 88.8 MCH 28.8 MCHC 32.4 RDW 13.6 RDW Differential 41.7 Plt Count 259 MPV 12.1 H Sodium 142 Potassium 4.0 Chloride 107 Carbon Dioxide 24.0 Anion Gap 11 BUN 55 H Creatinine 2.44 H Estim Creat Clear Calc 20.35 Est GFR (MDRD) Af Amer 27 L Est GFR (MDRD) Non-Af 22 L BUN/Creatinine Ratio 22.5 H Glucose 163 H Calcium 7.8 L POC Glucose 05/21/18 05/21/18 05/20/18 06:55 03:21 22:49 POC Glucose 151 H 171 H 192 H Current Medications Generic Name Dose Route Start Last Admin Trade Name Freq PRN Reason Stop Dose Admin Acetaminophen 650 mg 05/20/18 20:57 Tylenol PO Q6H PRN PRN Mild Pain (0-3/10)/Headache Hydrocodone Bitart/Acetaminophen 1 tablet 05/20/18 23:06 [place] 5mg-325mg PO Q12H PRN PRN PAIN Albuterol Sulfate 2.5 mg 05/20/18 21:49 Ventolin Aerosols INHALATION Q2H PRN PRN SHORTNESS OF BREATH Albuterol/Ipratropium 3 ml 05/20/18 22:00 05/21/18 06:28 Duoneb INHALATION 3 ml Q4H.RT LIZZETH Administration Amlodipine Besylate 10 mg 05/21/18 10:00 05/21/18 09:32 Norvasc PO 10 mg DAILY [facility] Administration Amoxicillin/Clavulanate Potassium 500 mg 05/20/18 23:00 05/21/18 09:32 Augmentin Tablet PO 500 mg BID [facility]ZZ[facility] Administration Aspirin 81 mg 05/21/18 10:00 05/21/18 09:32 Aspirin, Baby PO 81 mg DAILY [facility] Administration Atorvastatin Calcium 40 mg 05/20/18 23:00 05/20/18 22:58 Lipitor PO 40 mg QHS [facility] Administration Bisacodyl 10 mg 05/20/18 20:57 Dulcolax RECTAL .PRN X 1 PRN Constipation Calamine/Phenol 1 applic 05/21/18 07:10 Calmoseptine Ointment TOPICAL BID PRN ANAL/RECTAL IRRITATIONS Protocol Clopidogrel Bisulfate 75 mg 05/21/18 10:00 05/21/18 09:32 Plavix PO 75 mg DAILY [facility] Administration Duloxetine HCl 60 mg 05/21/18 10:00 05/21/18 09:38 Cymbalta PO 60 mg DAILY [facility] Administration Enoxaparin Sodium 30 mg 05/21/18 10:00 05/21/18 09:37 Lovenox SC 30 mg DAILY [facility] Administration Furosemide 40 mg 05/21/18 10:00 05/21/18 09:32 Lasix PO 40 mg BIDLX [facility] Administration Gabapentin 300 mg 05/21/18 12:00 Neurontin PO TIDCM [facility] Hydralazine HCl 25 mg 05/20/18 23:00 05/21/18 06:02 Apresoline PO 25 mg TID [facility] Administration Insulin Glargine 10 units 05/20/18 23:00 05/21/18 09:36 Lantus (Bkc) SC 10 u BID [facility] Administration Insulin Human Lispro 0 unit 05/20/18 23:00 05/21/18 09:32 Humalog Venkatesh (Bk) SC 2 u ACHS & 3AM [facility] Administration Protocol Magnesium Hydroxide 30 ml 05/20/18 20:57 Milk Of Magnesia PO .PRN X 1 PRN Constipation Metoprolol Succinate 100 mg 05/21/18 10:00 05/21/18 09:32 Toprol Xl (Beta Ángela) PO 100 mg DAILY [facility] Administration Nystatin 1 applic 05/21/18 10:00 05/21/18 09:37 Mycostatin Powder TOPICAL 1 applicatio BID LIZZETH Administration Protocol Ondansetron HCl 4 mg 05/20/18 21:49 Zofran PO Q8H PRN PRN NAUSEA Senna/Docusate Sodium 2 tablet 05/20/18 22:00 05/21/18 09:34 Senokot-S, Brenda-Colace PO Not Given BID [facility] Assessment/Plan All Active Problems Acute kidney injury (Acute) Acute renal injury due to circulatory failure (Acute) Acute decompensated heart failure (Acute) 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 I do not see history of COPD in the records. Recent chest x-ray was nonspecifically abnormal. Goal of therapy is rehabilitation to the extent that she regains her prior level of functional independence Plan: Physical therapy for gait and balance Occupational Therapy for ADLs Bowel protocol Speech therapy PRN analgesics DVT prophylaxis: Lovenox Severe shortness of breath: Currently she has on 6 L with exertion. I will repeat a chest x-ray and obtain bilateral lower extremity venous ultrasounds Diabetes: Continue sliding scale insulin
--- NOTE | 2018-05-21 11:31 | REHABEVAL_ITS ---
Admission Information Status Changes from Prescreening?: No changes Identified Actual Problem List:: Cognitve Impr/Memory Loss, Mobility Impaired, Self Care Deficit, Ineffective Communication, Know.Dfct of Medicaitons, Diabetes, Hyperglycemia, BP, Hypertension, Alteration/ Air Exchange, Ineffect.D/C Plan r/t Psy Potential Problem List:: DVT, Bleeding, Infection, UTI, Aspiration, Falls, Skin Integrity, Depression Risk of Complications DVT: LMWH, TESHA Hose, Sequential Compression Device Bleeding: Monitor Lab Values, Nursing to Teach Precautions for anti-coagulation therapy., Wound, if applicable, to be assessed every shift., Stroke patients assessed for lethargy or change in status. Infection: Clinical Staff to Monitor for S/S of infection:, S/S of infection include fever, redness, warmth, etc. Urinary Tract Infection: Monitor for frequency, burning, discomfort, or incontinence., Nursing will obtain urine sample for urinalysis and C&S when ordered. Aspiration: Clinical staff will monitor for coughing, drooling, congestion., Speech will evaluate swallowing and dsyphasia., Nursing will monitor patient swallowing during meals. Falls: Patient will be evaluated for Fall Precautions, Patient will be placed on Fall Precautions as indicated per protocol. Skin Breakdown: Nursing will assess skin daily using assessment tool., Nursing will place on Skin Breakdown Precautions as indicated. Pain: Clinical staff will assess patient's pain level per protocol., Medications will be given, if needed, and the pain level reassessed., Other methods: Massage, distraction, decrease stimulus, etc. used PRN. Plan of Care Patient requires physician specializing in physical medicine and rehab oversight to provide close medical supervision of rehab issues including: Pain Management, Sleep Problems, Bowel and Bladder, Medical and co-morbidity Management, DVT prophylaxis, Rehabilitation Leadership, Coordination of treatment team Patient needs Physical Therapy: For a minimum of 1 hour, At least 5 out of 7 days Patient needs Physical Therapy to improve:: Mobility, Mobility, Mobility, Strengthening, Transfers, Stretching, ROM, Endurance, Stairs, Gait, Balance Patient needs Occupational Therapy: For a minimum of 1 hour, At least 5 out of 7 days Patient needs Occupational Therapy to improve ADL's incl.: Eating, Grooming, Bathing, Dressing, Toileting, Toilet transfers, Community Reintegration, Higher functioning activities, Household tasks, Adaptive Equipment, Splinting, Other activities as determined Patient requires speech therapy: For a minimum of 1 hour, At least 5 out of 7 days Patient requires speech therapy for: Swallowing, Cognition, Language Skills, Compensatory Strategies Patient requires 24/ Rehabilitation Nursing for: Pain Issues, Identifying and preventing risk factors, Monitoring and reporting current medical conditions, Assisting with ambulation, transfer, and all ADL's, Teaching patients about disease process and medications, Family teaching, Providing safe environment, Bowel and Bladder Issues, Skin integrity, Medication Management Patient needs Supervisor Type Bar And Segment/ Case Management for: Discharge Planning, Arranging Home Equipment or Services, Family Interventions Patient needs Dietary and Nutrition Services for: Adequate Nutrition, Nutritional Supplements, Nutritional Education Goals Patient will remain: free from falls, or injury at time of discharge. Patient will perform bed mobility at: MOD I level of assist. Patient will complete transfers from bed to chair at: MOD I level of assist. Patient will ambulate: 100 feet, with MOD I assist, with LRD Patient will complete upper body dressing at: MOD I level of assist. Patient will complete lower body dressing at: MOD I level of assist. Patient will complete toileting at: MOD I level of assist. Patient will perform bathing at: MOD I level of assist. Patient will complete grooming at: MOD I level of assist. Patient will complete home management skills at: MOD I level of assist. Patient will achieve: 12 stairs, at MOD I assist Patient will have pain level of: of 3 or less Patient's skin will: remain intact, free from infection. Patient will receive: adequate nutrition. Discharge Planning Pt Prognosis for Sig. Practical Improv. w/in Reasonable Time: Good Anticipated D/C Destination: Home with Outpt Therapy Was Preadmission Assessment Accurate?: Yes
[2018-05-21] MEDS: Gabapentin 300 MG Capsule PO ×2 (13:08→17:15)
--- NOTE | 2018-05-21 16:08 | NURSING ---
Made Dr. Hayes aware of dvt in LLE.
[2018-05-21 16:35] LABS: Bedside Glucose 180 mg/dL (70-110)
--- NOTE | 2018-05-21 17:03 | CASEMGMT ---
Social Work Many family dynamics noted with patient case. June, patient sister June reporting concerns of patient daughter. No current power of etcher apprentice photoengraving noted to be on chart and unable to complete power of etcher apprentice photoengraving paper work due to patient current cognitive deficits. Stephy wanting to restrict visitors from coming to see patient. Stephy voicing to have concerns about patient daughter. Stephy educated that unable to restrict visitors at this time due to having no power of etcher apprentice photoengraving and no other concerns other then Stephy's comments. Staff aware and plan to monitor any visitors and call security if needed. Stephy educated on option of obtaining guardianship through the court. This social media intern directing June to get in contact with the court house on guardianship. Stephy voicing understanding and thanking this social media intern. Nursing staff reporting that patient daughter called in earlier on this day and nursing has no concerns at this time. Will continue to follow as needed. Maribeth NGUYEN, HUA
[2018-05-21] MEDS: hydrALAZINE 50 MG Tablet PO (20:04)
[2018-05-21 20:06] LABS: Bedside Glucose 244 mg/dL (70-110)
[2018-05-22] VITALS (17 sets, daily range): BP systolic 131–157; BP diastolic 69–96; PULSE 74–95; RESP 18–24; TEMP 36.7–36.8; O2SAT 85–99; BMI 48.9
[2018-05-22 03:56] LABS: Bedside Glucose 190 mg/dL (70-110)
[2018-05-22] MEDS: hydrALAZINE 50 MG Tablet PO ×3 (05:51→19:39)
[2018-05-22 07:00] LABS: Bedside Glucose 174 mg/dL (70-110)
[2018-05-22] MEDS: Ipratropium/Albuterol Sulfate 3 ML AMPUL.NEB INHALATION ×4 (07:30→22:58)
[2018-05-22] MEDS: Nystatin Powder 15gm Bottle 1 APPLIC TOPICAL ×3 (08:12→19:40)
[2018-05-22] MEDS: DULoxetine Hcl 60 MG Capsule PO (08:13)
[2018-05-22] MEDS: Amox/Clavulanate 500 MG Tablet PO ×2 (08:13→19:39)
[2018-05-22] MEDS: Furosemide 40 MG Tablet PO ×2 (08:13→17:20)
[2018-05-22] MEDS: Menthol/Lanolin/Calamine/Znox 113 GM Tube 1 APPLIC TOPICAL ×3 (08:13→19:40)
[2018-05-22] MEDS: Gabapentin 300 MG Capsule PO ×3 (08:14→17:20)
[2018-05-22] MEDS: Clopidogrel Bisulfate 75 MG Tablet PO (08:14)
[2018-05-22] MEDS: Aspirin 81 MG TAB.CHEW PO (08:14)
[2018-05-22] MEDS: amLODIPine 10 MG Tablet PO (08:14)
[2018-05-22] MEDS: Metoprolol(XL)Succ 100 MG Tablet PO (08:14)
[2018-05-22] MEDS: Enoxaparin 30 MG/0.3 ML Syringe SC (08:14)
[2018-05-22] MEDS: Insulin Lispro 100 UNIT/ML INSULN.PEN SC ×4 (08:14→20:00)
[2018-05-22 08:29] LABS: Absolute Lymphocyte Count 1.07 X10^3/ul (0.83-4.51); Absolute Neutrophil Count 18.6 X10^3/uL (2.0-7.7); Basophil# 0.03 X10^3/uL; Basophil% 0.1 % (0-1); Eosinophil# 0.23 X10^3/uL; Eosinophils% 1.1 % (0-5); Hematocrit 34.3 % (37-47); Hemoglobin 10.8 g/dl (12.0-15.0); Lymphocyte # 1.07 X10^3/ul (4.0); Lymphocyte % 5.1 % (19-41); Mean Corp Hgb Conc 31.5 g/gl (32-36); Mean Corpuscular Hgb 27.6 pg (27.0-32.0); Mean Corpuscular Volume 87.7 fL (81-99); Mean Platelet Vol. 12.1 fl (6.2-12.0); Monocyte% 3.8 % (0-10); Neutrophil # 18.64 X10^3/uL (2.7-7.7); Neutrophil % 89.2 % (47-70); POSITIVE COUNT NO; POSITIVE DIFFERENTIAL NO; POSITIVE MORPHOLOGY NO; Platelet Count 294 K/mm3 (150-450); RBC Distribution Width CV 14.2 % (11.6-14.6); RBC Distribution Width SD 44.7 fl (35.1-43.9); Red Blood Count 3.91 M/mm3 (4.2-5.4); White Blood Count 20.9 K/mm3 (4.4-11.0)
[2018-05-22 08:43] LABS: BUN 48 mg/dL (7-18); Creatinine, Serum 2.12 mg/dL (0.55-1.02); Estimated Creatinine Clearance 23.42 ml/min; Glucose 193 mg/dL (74-106)
[2018-05-22 08:44] LABS: Anion Gap 10 (5-15); BUN/Creat Ratio 22.6 RATIO (10-20); Chloride 107 mmol/L (98-107); EST Glomerular Filtration Rate 26 mL/min (>60); Est Glom Filt Rate - Afr Amer 31 mL/min (>60); Potassium 3.9 mmol/L (3.5-5.1); Sodium Level 140 mmol/L (136-145)
--- NOTE | 2018-05-22 08:59 | RAD_ITS ---
STUDY: X-RAY CHEST REASON FOR EXAM: Female, 52 years old. Shortness of breath TECHNIQUE: PA and lateral views of the chest. COMPARISON: Previous day FINDINGS: Bilateral airspace and interstitial opacities are overall similar since the prior study except for mild clearing in the left upper lobe. There is no demonstrated pleural abnormality. There is mild cardiac enlargement. Normal mediastinum and kristi. Normal visualized pulmonary arteries. There is atherosclerotic tortuosity of the aortic arch and descending thoracic aorta. No acute bony process. There is no demonstrated abnormality of the visualized soft tissue structures of the upper abdomen. RAD/Chest PA and Lateral IMPRESSION: 1. Slight favorable change. Mild clearing of left upper lobe infiltrate but persistent multilobar interstitial and airspace disease suggesting pulmonary edema, pulmonary hemorrhage or atypical pneumonia. Electronically Signed: Rudolph Stevenson MD at 11:51 EST , Service support ,
--- NOTE | 2018-05-22 09:32 | NM_ITS ---
CLINICAL: Female, 52 years old. Shortness of breath NUCLEAR VENTILATION/PERFUSION - LUNG TECHNIQUE: The patient was administered 5.6 mCi of Tc MAA followed by a perfusion lung scan. The patient was administered 45.0 mCi of Tc DTPA aerosol followed by a ventilation lung scan. Comparison made to prior chest radiograph dated today. COMPARISON STUDIES : NM - None. CR - Not available for review at this time. CT - Not available for review at this time. MR - Not available for review at this time. FINDINGS: The pulmonary perfusion study demonstrates uniform perfusion throughout both lung gilmore. There are no demonstrated segmental or subsegmental perfusion defects. Minimal fissural fluid noted. The ventilation study demonstrates nonuniform (diminished in the upper lung gilmore) ventilation throughout both lung gilmore. There are no segmental or subsegmental ventilation abnormalities. NM/Lung Scan Vent/Perf IMPRESSION: Low probability 99m Tc MAA pulmonary perfusion Tc DTPA aerosol ventilation imaging survey, according to revised PIOPED interpretive criteria. Electronically Signed: Rudolph Stevenson MD at 12:21 EST , Service support ,
--- NOTE | 2018-05-22 10:11 | NURSING ---
patient taken down to nuclear medicine.
--- NOTE | 2018-05-22 11:30 | NURSING ---
patient returned to unit at this time.
[2018-05-22 11:41] LABS: Bedside Glucose 217 mg/dL (70-110)
--- NOTE | 2018-05-22 12:36 | NURSING ---
dr. santana notified of lung scan and cxr completed this shift.
--- NOTE | 2018-05-22 13:22 | PN_ITS ---
Subjective: Patient seen and examined. Has been having multiple bowel movements. Denies any fever, chills, chest pain,or dizziness. Objective: Physical exam: General: Alert, Cooperative, No apparent distress - on 5 L oxygen, remains confused HEENT: Atraumatic, PERRLA, EOMI, Normocephalic Oral: Moist Mucosa Neck: Supple, No JVD, Negative Carotid Bruits Lungs: Clear to auscultation, Normal air movement Cardiovascular: Regular rate, Regular Rhythm, Normal S1, Normal S2, No murmurs Abdomen: Bowel Sounds Present, Soft, Non Tender, Non-Distended, No Hepato- splenomegaly, multiple skin tears over the anterior abdominal wall, and in abdominal wall folds as well as abdominal wall Kayla intertrigo. Extremities: No edema Skin: No rashes, No breakdown Musculoskeletal: No Tenderness to Palpation of Joints or Extremities Lymphatic: No Cervical, Supraclavicular, or Inguinal Adenopathy Neurological: Cranial nerves II-XII grossly intact, Neuro grossly intact Psych/Mental Status: Normal Affect, Appropriate Vitals/I&O's: Vital Signs Temp Pulse Resp BP Pulse Ox 98.0 F 90 24 H 157/96 H 99 05/22/18 09:36 05/22/18 09:36 05/22/18 09:36 05/22/18 09:36 05/22/18 09:36 Oxygen Flow Rate (L/min) 6 Oxygen Delivery Method Nasal Cannula Weight: 116.392 kg Body Mass Index (BMI) 48.9 Intake and Output for Last 24 Hours 05/20/18 05/21/18 05/22/18 23:59 23:59 23:59 Intake Total 790 / 790 480 / 480 Output Total 2350 / 2350 400 / 400 Balance -1560 / -1560 80 / 80 Laboratory Results 05/21/18 16:21: POC Glucose 180 H 05/21/18 19:58: POC Glucose 244 H 05/22/18 03:50: POC Glucose 190 H 05/22/18 06:08: POC Glucose 174 H 05/22/18 07:47: WBC 20.9 H, RBC 3.91 L, Hgb 10.8 L, Hct 34.3 L, MCV 87.7, MCH 27.6, MCHC 31.5 L, RDW 14.2, RDW Differential 44.7 H, Plt Count 294, MPV 12.1 H, Immature Gran % (Auto) 0.700, Neut % (Auto) 89.2 H, Lymph % (Auto) 5.1 L, [place] % (Auto) 3.8, Eos % (Auto) 1.1, Baso % (Auto) 0.1, Absolute Neuts (auto) 18.6 H, Absolute Lymphs (auto) 1.07, Total Counted Not Reportable 05/22/18 07:47: Sodium 140, Potassium 3.9, Chloride 107, Carbon Dioxide 23.0, Anion Gap 10, BUN 48 H, Creatinine 2.12 H, Estim Creat Clear Calc 23.42, Est GFR (MDRD) Af Amer 31 L, Est GFR (MDRD) Non-Af 26 L, BUN/Creatinine Ratio 22.6 H, Glucose 193 H, Calcium 8.0 L 05/22/18 11:31: POC Glucose 217 H Current Medications Acetaminophen (Tylenol) 650 mg PO Q6H PRN PRN PRN Reason: Mild Pain (0-3/10)/Headache Hydrocodone Bitart/Acetaminophen (Pierron 5mg-325mg) 1 tablet PO Q12H PRN PRN PRN Reason: PAIN Albuterol Sulfate (Ventolin Aerosols) 2.5 mg INHALATION Q2H PRN PRN PRN Reason: SHORTNESS OF BREATH Albuterol/Ipratropium (Duoneb) 3 ml INHALATION Q4H.RT [facility] Last Admin: 05/22/18 11:14 Dose: Not Given Amlodipine Besylate (Norvasc) 10 mg PO DAILY [facility] Last Admin: 05/22/18 08:14 Dose: 10 mg Amoxicillin/Clavulanate Potassium (Augmentin Tablet) 500 mg PO BID [facility] Last Admin: 05/22/18 08:13 Dose: 500 mg Apixaban (Eliquis) 10 mg PO BID [facility] Aspirin (Aspirin, Baby) 81 mg PO DAILY [facility] Last Admin: 05/22/18 08:14 Dose: 81 mg Atorvastatin Calcium (Lipitor) 40 mg PO QHS [facility] Last Admin: 05/20/18 22:58 Dose: 40 mg Bisacodyl (Dulcolax) 10 mg RECTAL .PRN X 1 PRN PRN Reason: Constipation Calamine/Phenol (Calmoseptine Ointment) 1 applic TOPICAL TID [facility]; Protocol Clopidogrel Bisulfate (Plavix) 75 mg PO DAILY [facility] Last Admin: 05/22/18 08:14 Dose: 75 mg Duloxetine HCl (Cymbalta) 60 mg PO DAILY [facility] Last Admin: 05/22/18 08:13 Dose: 60 mg Enoxaparin Sodium (Lovenox) 30 mg SC DAILY@0600 [facility] Furosemide (Lasix) 40 mg PO BIDLX [facility] Last Admin: 05/22/18 08:13 Dose: 40 mg Gabapentin (Neurontin) 300 mg PO TIDCM [facility] Last Admin: 05/22/18 12:01 Dose: 300 mg Hydralazine HCl (Apresoline) 50 mg PO TID [facility] Last Admin: 05/22/18 05:51 Dose: 50 mg Insulin Glargine (Lantus (Bkc)) 10 units SC BID [facility] Last Admin: 05/22/18 08:14 Dose: 10 u Insulin Human Lispro (Humalog Kwikpen (Bk)) 0 unit SC ACHS & 3AM [facility]; Protocol Last Admin: 05/22/18 12:02 Dose: 4 u Magnesium Hydroxide (Milk Of Magnesia) 30 ml PO .PRN X 1 PRN PRN Reason: Constipation Metoprolol Succinate (Toprol Xl (Beta Ángela)) 100 mg PO DAILY [facility] Last Admin: 05/22/18 08:14 Dose: 100 mg Nystatin (Mycostatin Powder) 1 applic TOPICAL TID [facility]; Protocol Ondansetron HCl (Zofran) 4 mg PO Q8H PRN PRN PRN Reason: NAUSEA Senna/Docusate Sodium (Senokot-S, Brenda-Colace) 2 tablet PO BID [facility] Last Admin: 05/22/18 08:15 Dose: Not Given Sodium Chloride () 5 - 15 ml IV UD PRN PRN Reason: SALINE FLUSH Medical Necessity - Tobacco Use Smoking Status: Former smoker Assessment/Plan All Active Problems Acute kidney injury (Acute) Acute renal injury due to circulatory failure (Acute) Acute decompensated heart failure (Acute) 52-year-old with multiple comorbidities including obesity, type II DM, CAD status post stent, hypertension who comes in with progressive confusion after recently being admitted to [facility] for influenza, pneumonia, probable C. difficile. 1. Debility secondary to concurrent medical comorbidities, therapy is ongoing, Continue to follow PT/OT recommendations. 2. Acute left soleal DVT, asymptomatic, theoretically should be monitored with serial doppler ultrasound to monitor for progression, but because of patient's habitus and continued impaired mobility, will start on Eliquis BID 3. Acute metabolic encephalopathy secondary to acute CVA, patient is oriented x1, continue to monitor 4. Acute left posterior, temporal, posterior frontal and parietal lobes CVA, no history of atrial fibrillation, 2d-ECHO shows no shunting, or valvular lesions Continue on aspirin and Plavix, statin. 5. Acute hypoxic respiratory failure secondary to CAP, Acute on chronic CHF, PE ruled out with negative VQ scan Will continue on antibiotics and Lasix, incentive spirometer. Continue to wean off oxygen 6. Acute on chronic diastolic CHF, 65%/pulmonary hypertension, RVSP 43, continue on Lasix 40 mg PO BID, strict I's and O's, CHF protocol, labs in a.m. 7. Recent CAP, recently treated in [facility], on Augmentin, continued breathing treatments 8. CARYN on CKD stage 3, creatinine is improving, renal ultrasound is negative, w ill continue to trend 9. Hypertension, uncontrolled, continue on amlodipine, metoprolol, hydralazine. Patient is off lisinopril on account of CARYN on CKD 10. Skin tears of the anterior abdominal wall, severe candidal intertrigo of the abdominal wall, wound nurse consulted, on nystatin, topical wound preparation 11. Type 2 DM, blood sugars are controlled, continue on Lantus, insulin sliding scale with accucheks 12. CAD status post stent, on aspirin, statin, metoprolol, lisinopril 13. Morbid obesity, BMI 48.9 14. DVT PPx- Apixaban Code Visit Inpatient E&M: 51846 Subs Hosp L2
[2018-05-22] MEDS: APIXABAN 5 MG TABLET 10 MG PO ×2 (15:36→22:11)
[2018-05-22] MEDS: Loperamide 2 MG Capsule 4 MG PO (15:36)
[2018-05-22 16:40] LABS: Bedside Glucose 185 mg/dL (70-110)
[2018-05-22] MEDS: Atorvastatin Calcium 40 MG Tablet PO (19:38)
[2018-05-22] MEDS: 0.9% NaCl Peripheral Flush Adult/Peds IV (19:55)
[2018-05-22 20:26] LABS: Bedside Glucose 223 mg/dL (70-110)
[2018-05-23] VITALS (13 sets, daily range): BP systolic 129–148; BP diastolic 69–80; PULSE 72–83; RESP 16–20; TEMP 36.6–37; O2SAT 90–93; BMI 48.9
[2018-05-23 02:26] LABS: Bedside Glucose 120 mg/dL (70-110)
--- NOTE | 2018-05-23 02:56 | NURSING ---
O2 found off, sats down to 74%. O2 replaced, sats now 91% on 5L. Denies resp distress. Cortes cath draining minimal amts of urine. Linens found wet with urine. Irrigated cortes with 50cc sterile ns with urine and saline returns. Due to red seal being broken, cortes cath replaced with #16 burkinan cortes cath. Urine draining well. Sterile technique used.
[2018-05-23] MEDS: hydrALAZINE 50 MG Tablet PO ×3 (05:50→20:09)
[2018-05-23] MEDS: Menthol/Lanolin/Calamine/Znox 113 GM Tube 1 APPLIC TOPICAL ×3 (06:05→20:11)
[2018-05-23] MEDS: Nystatin Powder 15gm Bottle 1 APPLIC TOPICAL ×3 (06:06→20:12)
--- NOTE | 2018-05-23 06:51 | NURSING ---
Pt with at 0545 epitaxis - found with blood on gown, face, fingers. Cleansed. No further bleeding noted; At 0655 pt again with epitaxis, less than one hour ago. Pt cleansed. Hemostasis obtained
[2018-05-23 06:55] LABS: Anion Gap 11 (5-15); BUN 47 mg/dL (7-18); BUN/Creat Ratio 20.2 RATIO (10-20); Calcium,Total 7.7 mg/dL (8.5-10.1); Chloride 103 mmol/L (98-107); Creatinine, Serum 2.33 mg/dL (0.55-1.02); EST Glomerular Filtration Rate 23 mL/min (>60); Est Glom Filt Rate - Afr Amer 28 mL/min (>60); Estimated Creatinine Clearance 21.31 ml/min; Glucose 114 mg/dL (74-106); Potassium 3.7 mmol/L (3.5-5.1); Sodium Level 140 mmol/L (136-145)
[2018-05-23 07:01] LABS: Absolute Lymphocyte Count 0.98 X10^3/ul (0.83-4.51); Absolute Neutrophil Count 12.8 X10^3/uL (2.0-7.7); Basophil# 0.04 X10^3/uL; Basophil% 0.3 % (0-1); Eosinophil# 0.41 X10^3/uL; Eosinophils% 2.7 % (0-5); Hemoglobin 9.3 g/dl (12.0-15.0); Lymphocyte # 0.98 X10^3/ul (4.0); Lymphocyte % 6.5 % (19-41); Mean Corp Hgb Conc 32.1 g/gl (32-36); Mean Corpuscular Hgb 28.3 pg (27.0-32.0); Mean Corpuscular Volume 88.1 fL (81-99); Monocyte# 0.82 X10^3/uL; Monocyte% 5.4 % (0-10); Neutrophil # 12.75 X10^3/uL (2.7-7.7); Neutrophil % 84.7 % (47-70); Platelet Count 269 K/mm3 (150-450); RBC Distribution Width CV 14.3 % (11.6-14.6); RBC Distribution Width SD 45.7 fl (35.1-43.9); Red Blood Count 3.29 M/mm3 (4.2-5.4); White Blood Count 15.1 K/mm3 (4.4-11.0)
[2018-05-23 07:13] LABS: POSITIVE COUNT NO; POSITIVE DIFFERENTIAL NO; POSITIVE MORPHOLOGY NO
[2018-05-23] MEDS: APIXABAN 5 MG TABLET 10 MG PO ×2 (07:59→20:09)
[2018-05-23] MEDS: Loperamide 2 MG Capsule PO (07:59)
[2018-05-23] MEDS: Amox/Clavulanate 500 MG Tablet PO ×2 (08:00→20:09)
[2018-05-23] MEDS: Gabapentin 300 MG Capsule PO ×3 (08:00→17:32)
[2018-05-23] MEDS: Clopidogrel Bisulfate 75 MG Tablet PO (08:00)
[2018-05-23] MEDS: Aspirin 81 MG TAB.CHEW PO (08:00)
[2018-05-23] MEDS: Furosemide 40 MG Tablet PO ×2 (08:00→17:33)
[2018-05-23] MEDS: Metoprolol(XL)Succ 100 MG Tablet PO (08:00)
[2018-05-23] MEDS: DULoxetine Hcl 60 MG Capsule PO (08:00)
[2018-05-23] MEDS: amLODIPine 10 MG Tablet PO (08:00)
[2018-05-23] MEDS: 0.9% NaCl Peripheral Flush Adult/Peds IV ×3 (08:04→20:08)
[2018-05-23 09:05] LABS: Albumin, Serum 1.5 g/dL (3.2-5.0)
[2018-05-23] MEDS: Ipratropium/Albuterol Sulfate 3 ML AMPUL.NEB INHALATION ×3 (10:45→18:58)
[2018-05-23 12:11] LABS: Bedside Glucose 199 mg/dL (70-110)
[2018-05-23 12:21] LABS: Bedside Glucose 112 mg/dL (70-110)
[2018-05-23] MEDS: Insulin Lispro 100 UNIT/ML INSULN.PEN SC ×3 (12:21→20:09)
[2018-05-23] MEDS: NYSTATIN 500,000 UNIT/5 ML UDC 500000 UNIT PO ×3 (13:16→20:09)
[2018-05-23 16:35] LABS: Bedside Glucose 178 mg/dL (70-110)
[2018-05-23] MEDS: Atorvastatin Calcium 40 MG Tablet PO (20:09)
[2018-05-23 20:10] LABS: Bedside Glucose 222 mg/dL (70-110)
[2018-05-24] VITALS (9 sets, daily range): BP systolic 140–144; BP diastolic 76–80; PULSE 73–80; RESP 16–18; TEMP 36.7–37; O2SAT 90–95; BMI 48.9
[2018-05-24 02:46] LABS: Bedside Glucose 93 mg/dL (70-110)
[2018-05-24] MEDS: 0.9% NaCl Peripheral Flush Adult/Peds IV (03:00)
--- NOTE | 2018-05-24 04:12 | NURSING ---
Bloody secretions found around SL. Cleansed, new dressing applied. Flushed with 10ml ns without difficulty or leakage.
[2018-05-24] MEDS: hydrALAZINE 50 MG Tablet PO ×3 (06:05→21:50)
[2018-05-24 06:08] LABS: Absolute Lymphocyte Count 1.16 X10^3/ul (0.83-4.51); Absolute Neutrophil Count 10.1 X10^3/uL (2.0-7.7); Basophil# 0.05 X10^3/uL; Basophil% 0.4 % (0-1); Eosinophil# 0.64 X10^3/uL; Hematocrit 28.6 % (37-47); Hemoglobin 8.9 g/dl (12.0-15.0); Lymphocyte # 1.16 X10^3/ul (4.0); Mean Corp Hgb Conc 31.1 g/gl (32-36); Mean Corpuscular Hgb 28.3 pg (27.0-32.0); Mean Corpuscular Volume 90.8 fL (81-99); Mean Platelet Vol. 11.9 fl (6.2-12.0); Monocyte# 0.83 X10^3/uL; Monocyte% 6.5 % (0-10); Neutrophil % 78.7 % (47-70); Platelet Count 257 K/mm3 (150-450); RBC Distribution Width CV 14.1 % (11.6-14.6); RBC Distribution Width SD 45.5 fl (35.1-43.9); Red Blood Count 3.15 M/mm3 (4.2-5.4); White Blood Count 12.8 K/mm3 (4.4-11.0)
[2018-05-24] MEDS: Nystatin Powder 15gm Bottle 1 APPLIC TOPICAL ×3 (06:12→21:41)
[2018-05-24] MEDS: Menthol/Lanolin/Calamine/Znox 113 GM Tube 1 APPLIC TOPICAL ×3 (06:12→22:27)
[2018-05-24 06:13] LABS: Anion Gap 10 (5-15); BUN 45 mg/dL (7-18); BUN/Creat Ratio 18.8 RATIO (10-20); Calcium,Total 7.6 mg/dL (8.5-10.1); Chloride 103 mmol/L (98-107); Creatinine, Serum 2.39 mg/dL (0.55-1.02); EST Glomerular Filtration Rate 23 mL/min (>60); Est Glom Filt Rate - Afr Amer 27 mL/min (>60); Estimated Creatinine Clearance 20.78 ml/min; Glucose 81 mg/dL (74-106); POSITIVE COUNT NO; POSITIVE DIFFERENTIAL NO; POSITIVE MORPHOLOGY NO; Sodium Level 138 mmol/L (136-145)
[2018-05-24 07:05] LABS: Bedside Glucose 80 mg/dL (70-110)
[2018-05-24] MEDS: Metoprolol(XL)Succ 100 MG Tablet PO (08:32)
[2018-05-24] MEDS: amLODIPine 10 MG Tablet PO (08:33)
[2018-05-24] MEDS: DULoxetine Hcl 60 MG Capsule PO (08:33)
[2018-05-24] MEDS: APIXABAN 5 MG TABLET 10 MG PO (08:33)
[2018-05-24] MEDS: NYSTATIN 500,000 UNIT/5 ML UDC 500000 UNIT PO ×4 (08:33→21:50)
[2018-05-24] MEDS: Gabapentin 300 MG Capsule PO ×3 (08:33→17:33)
[2018-05-24] MEDS: Furosemide 40 MG Tablet PO ×2 (08:33→17:33)
[2018-05-24] MEDS: Amox/Clavulanate 500 MG Tablet PO ×2 (08:33→21:50)
--- NOTE | 2018-05-24 11:25 | NURSING ---
Dr Gandhi updated on medication changes.
[2018-05-24] MEDS: Insulin Lispro 100 UNIT/ML INSULN.PEN SC ×3 (12:01→21:43)
[2018-05-24 12:05] LABS: Bedside Glucose 155 mg/dL (70-110)
--- NOTE | 2018-05-24 12:14 | CASEMGMT ---
Social Work Telephone call from patient son, Fredrick. Fredrick confirming that there are currently no power of district attorney paperwork in place and to be working on obtaining guardianship. Fredrick stating that discharge plan would be for patient to discharge to a fdc in [facility] if patient is unable to discharge to home as Fredrick lives in [facility] and will be able to support patient from there. Fredrick planning to attend team meeting on . Will continue to follow. Maribeth NGUYEN, HUA
--- NOTE | 2018-05-24 14:06 | PN.NEURO_ITS ---
Subjective: No issues overnight. Care discussed with nursing staff - Physical Exam General: Alert HEENT: Normocephalic Neck: Supple Lungs: Normal air movement Cardiovascular: Normal S1, Normal S2 Abdomen: Bowel Sounds Present Extremities: No cyanosis Neurological: - - consious, awake, CN 2-12 grossly intact, has receptive aphasia, comprehension is somewhat impaired, power 5/5 all 4 extremities, denies any sensory loss, no cerebellar signs, Reflexes + B/L B/S/T/K/A, gait deferred, NIHSS 2 at present. Psych/Mental Status: Normal Affect Vital Signs Temp Pulse Resp BP Pulse Ox 98.1 F 80 18 144/77 H 90 05/24/18 08:55 05/24/18 08:55 05/24/18 08:55 05/24/18 08:55 05/24/18 08:55 Oxygen Flow Rate (L/min) 5 Oxygen Delivery Method Nasal Cannula Weight: 114.9 kg Body Mass Index (BMI) 48.9 Intake and Output for Last 24 Hours 05/22/18 05/23/18 05/24/18 23:59 23:59 23:59 Intake Total 1580 / 1580 1220 / 1220 560 / 560 Output Total 2225 / 2225 875 / 875 600 / 600 Balance -645 / -645 345 / 345 -40 / -40 Laboratory Tests Past 24 Hrs 05/24/18 05/24/18 05:34 05:34 WBC 12.8 H RBC 3.15 L Hgb 8.9 L Hct 28.6 L MCV 90.8 MCH 28.3 MCHC 31.1 L RDW 14.1 RDW Differential 45.5 H Plt Count 257 MPV 11.9 Immature Gran % (Auto) 0.400 Neut % (Auto) 78.7 H Lymph % (Auto) 9.0 L [place] % (Auto) 6.5 Eos % (Auto) 5.0 Baso % (Auto) 0.4 Absolute Neuts (auto) 10.1 H Absolute Lymphs (auto) 1.16 Total Counted Not Reportable Sodium 138 Potassium 4.0 Chloride 103 Carbon Dioxide 25.0 Anion Gap 10 BUN 45 H Creatinine 2.39 H Estim Creat Clear Calc 20.78 Est GFR (MDRD) Af Amer 27 L Est GFR (MDRD) Non-Af 23 L BUN/Creatinine Ratio 18.8 Glucose 81 Calcium 7.6 L POC Glucose 05/24/18 05/24/18 05/24/18 12:00 06:51 02:19 POC Glucose 155 H 80 93 05/23/18 05/23/18 20:06 16:32 POC Glucose 222 H 178 H Medical Necessity - Tobacco Use Smoking Status: Former smoker Assessment/Plan All Active Problems Acute kidney injury (Acute) Acute renal injury due to circulatory failure (Acute) Acute decompensated heart failure (Acute) 52 yr F with PMH HTN, HLD, DM, CAD s/p stents, Diastolic CHF, CKD, [place], recent h/o abdominal wall cellulitis, obesity, admitted to [facility] on 05/21/[facility], with debility s/p acute left MCA stroke, for > 3 hrs therapy daily, with a goal of returning home at or near her prior level of functional independence. MRI brain reported to show large Left MCA stroke, MRA head/neck- no hemodynamically significant stenosis or occlusion. TTE-EF 60%, normal LA size, no PFO. LDL-63, [id number]. On Eliquis for acute DVT in left soleus vein. On Statins. Plan -PT for gait stability -OT for ADLs -ST for aphasia -Analgesics per protocol -Bowel protocol -Acute large Left MCA stroke-was on ASA and Plavix but was later found to have acute left soleal DVT and was started on Eliquis by hospitalist following which ASA/Plavix was held due to bleeding risk given the large left MCA stroke. 30 day event recorder on discharge. -Acute DVT- found to have acute left soleal DVT since admission to rehab unit, started on Eliquis by hospitalist. V/Q scan lung-low probability of PE. -HTN- goal BP < 130/80 mmHg. On Amlodipine and Metoprolol -HLD-on Lipitor 40 mg PO q hs. -DM- on Insulin -DM Neuropathy- on Gabapentin 300 mg PO TID and Cymbalta 60 mg PO once daily -CAD s/p stents and chronic Diastolic CHF- on Lasix and metoprolol -COPD- on Albuterol and oxygen -Continues to have Skin tears of the anterior abdominal wall, wound nurse consult, on nystatin, topical wound preparation. -Hospitalist consult -Further medical management per hospitalist recommendations -Fall precautions -DVT prophylaxis- On Eliquis -Follow up with PCP, Neurology on discharge
[2018-05-24 17:31] LABS: Bedside Glucose 176 mg/dL (70-110)
[2018-05-24] MEDS: Ipratropium/Albuterol Sulfate 3 ML AMPUL.NEB INHALATION (19:30)
[2018-05-24] MEDS: Atorvastatin Calcium 40 MG Tablet PO (21:42)
[2018-05-24] MEDS: APIXABAN 5 MG TABLET PO (21:47)
[2018-05-24 22:21] LABS: Bedside Glucose 242 mg/dL (70-110)
[2018-05-25] VITALS (9 sets, daily range): BP systolic 120–135; BP diastolic 60–94; PULSE 70–97; RESP 16–20; TEMP 36.6–36.8; O2SAT 92–96; BMI 48.9
[2018-05-25] MEDS: Insulin Lispro 100 UNIT/ML INSULN.PEN SC ×4 (02:14→21:59)
[2018-05-25 02:26] LABS: Bedside Glucose 160 mg/dL (70-110)
[2018-05-25] MEDS: Nystatin Powder 15gm Bottle 1 APPLIC TOPICAL ×3 (06:28→22:00)
[2018-05-25] MEDS: hydrALAZINE 50 MG Tablet PO ×3 (06:28→21:57)
[2018-05-25] MEDS: Menthol/Lanolin/Calamine/Znox 113 GM Tube 1 APPLIC TOPICAL ×3 (06:28→21:58)
[2018-05-25 07:05] LABS: Bedside Glucose 178 mg/dL (70-110)
--- NOTE | 2018-05-25 07:37 | NURSING ---
06:00 Pt found with O2 removed. Pt sats diminished and I.S. encouraged along with deep breathing. Pt sats increased to 85%. Pt positioned in upright position and breathing through nose was not performed even with much cueing and prompting. Pt BS 178. Will continue to monitor.
[2018-05-25] MEDS: Amox/Clavulanate 500 MG Tablet PO ×2 (08:05→21:57)
[2018-05-25] MEDS: Gabapentin 300 MG Capsule PO ×3 (08:05→18:06)
[2018-05-25] MEDS: APIXABAN 5 MG TABLET PO ×2 (08:06→21:57)
[2018-05-25] MEDS: amLODIPine 10 MG Tablet PO (08:06)
[2018-05-25] MEDS: Furosemide 40 MG Tablet PO ×2 (08:06→18:06)
[2018-05-25] MEDS: DULoxetine Hcl 60 MG Capsule PO (08:06)
[2018-05-25] MEDS: Metoprolol(XL)Succ 100 MG Tablet PO (08:06)
[2018-05-25 12:06] LABS: Bedside Glucose 150 mg/dL (70-110)
[2018-05-25] MEDS: NYSTATIN 500,000 UNIT/5 ML UDC 500000 UNIT PO ×4 (12:09→22:00)
--- NOTE | 2018-05-25 14:51 | PN_ITS ---
Subjective: Patient is lethargic. She takes more than normal time to understand and answer the question. Slow to respond. Patient has multiple superficial lower abdominal and pelvic wounds. Vitals/I&O's: Vital Signs Temp Pulse Resp BP Pulse Ox 98 F 74 20 H 135/94 H 92 05/25/18 08:07 05/25/18 13:45 05/25/18 08:07 05/25/18 08:07 05/25/18 11:48 Oxygen Flow Rate (L/min) 4 Oxygen Delivery Method Nasal Cannula Weight: 252 lb 3.341 oz Body Mass Index (BMI) 48.9 Intake and Output for Last 24 Hours 05/23/18 05/24/18 05/25/18 23:59 23:59 23:59 Intake Total 1220 / 1220 920 / 920 850 / 850 Output Total 875 / 875 1750 / 1750 500 / 500 Balance 345 / 345 -830 / -830 350 / 350 General: Disoriented, Lethargic HEENT: Atraumatic, PERRLA, EOMI, Normocephalic Neck: Supple, No JVD, Negative Carotid Bruits Lungs: Clear to auscultation, No rhonchi, No wheeze, No rales, Diminished - Air entry is diminished in both lung bases Cardiovascular: Regular rate, Regular Rhythm, Normal S1, Normal S2, No murmurs Abdomen: Bowel Sounds Present, Soft, Non Tender Extremities: Capillary Refill Less than 3 Seconds, Edema Skin: Ulcer/ Wound - Superficial wound and lower abdominal wall and pelvic wall Musculoskeletal: No Tenderness to Palpation of Joints or Extremities, Arthritic Changes Neurological: Cranial nerves II-XII grossly intact Psych/Mental Status: Normal Affect, Appropriate Laboratory Results 05/24/18 17:17: POC Glucose 176 H 05/24/18 21:40: POC Glucose 242 H 05/25/18 02:13: POC Glucose 160 H 05/25/18 06:19: POC Glucose 178 H 05/25/18 11:39: POC Glucose 150 H Current Medications Acetaminophen (Tylenol) 650 mg PO Q6H PRN PRN PRN Reason: Mild Pain (0-3/10)/Headache Hydrocodone Bitart/Acetaminophen ([place] 5mg-325mg) 1 tablet PO Q12H PRN PRN PRN Reason: PAIN Albuterol Sulfate (Ventolin Aerosols) 2.5 mg INHALATION Q2H PRN PRN PRN Reason: SHORTNESS OF BREATH Albuterol/Ipratropium (Duoneb) 3 ml INHALATION Q4H.RT [facility] Last Admin: 05/25/18 07:00 Dose: Not Given Amlodipine Besylate (Norvasc) 10 mg PO DAILY [facility] Last Admin: 05/25/18 08:06 Dose: 10 mg Amoxicillin/Clavulanate Potassium (Augmentin Tablet) 500 mg PO BID [facility] Last Admin: 05/25/18 08:05 Dose: 500 mg Apixaban (Eliquis) 5 mg PO BID [facility] Last Admin: 05/25/18 08:06 Dose: 5 mg Atorvastatin Calcium (Lipitor) 40 mg PO QHS [facility] Last Admin: 05/24/18 21:42 Dose: 40 mg Bisacodyl (Dulcolax) 10 mg RECTAL .PRN X 1 PRN PRN Reason: Constipation Calamine/Phenol (Calmoseptine Ointment) 1 applic TOPICAL TID [facility]; Protocol Last Admin: 05/25/18 13:49 Dose: 1 applicatio Duloxetine HCl (Cymbalta) 60 mg PO DAILY [facility] Last Admin: 05/25/18 08:06 Dose: 60 mg Furosemide (Lasix) 40 mg PO BIDLX [facility] Last Admin: 05/25/18 08:06 Dose: 40 mg Gabapentin (Neurontin) 300 mg PO TIDCM [facility] Last Admin: 05/25/18 12:09 Dose: 300 mg Hydralazine HCl (Apresoline) 50 mg PO TID [facility] Last Admin: 05/25/18 13:45 Dose: 50 mg Insulin Glargine (Lantus (Bkc)) 10 units SC BID [facility] Last Admin: 05/25/18 08:16 Dose: 10 u Insulin Human Lispro (Humalog Kwikpen (Bkc)) 0 unit SC ACHS & 3AM [facility]; Protocol Last Admin: 05/25/18 12:09 Dose: 2 u Loperamide HCl (Imodium) 2 mg PO Q4H PRN PRN PRN Reason: Diarrhea Last Admin: 05/23/18 07:59 Dose: 2 mg Magnesium Hydroxide (Milk Of Magnesia) 30 ml PO .PRN X 1 PRN PRN Reason: Constipation Metoprolol Succinate (Toprol Xl (Beta Ángela)) 100 mg PO DAILY [facility] Last Admin: 05/25/18 08:06 Dose: 100 mg Nystatin (Mycostatin Powder) 1 applic TOPICAL TID [facility]; Protocol Last Admin: 05/25/18 13:50 Dose: 1 applicatio Nystatin (Nystatin) 500,000 unit PO 4X/DAY [facility] Last Admin: 05/25/18 13:46 Dose: 500,000 unit Ondansetron HCl (Zofran) 4 mg PO Q8H PRN PRN PRN Reason: NAUSEA Senna/Docusate Sodium (Senokot-S, Brenda-Colace) 2 tablet PO BID [facility] Last Admin: 05/25/18 01:55 Dose: Not Given Sodium Chloride () 5 - 15 ml IV UD PRN PRN Reason: SALINE FLUSH Last Admin: 05/24/18 03:00 Dose: 10 ml Medical Necessity - Tobacco Use Smoking Status: Former smoker Assessment/Plan All Active Problems Acute kidney injury (Acute) Acute renal injury due to circulatory failure (Acute) Acute decompensated heart failure (Acute) 52-year-old with multiple comorbidities including obesity, type II DM, CAD status post stent, hypertension who comes in with progressive confusion after recently being admitted to [facility] for influenza, pneumonia, probable C. difficile. Here in [facility], C. difficile was ruled out 1. Debility secondary to concurrent medical comorbidities, therapy is ongoing, Continue to follow PT/OT recommendations. 2. Acute left soleal DVT, asymptomatic, on Eliquis. 3. Acute metabolic encephalopathy secondary to acute CVA, patient is oriented x1, continue to monitor 4. Acute left posterior, temporal, posterior frontal and parietal lobes CVA, no history of atrial fibrillation, 2d-ECHO shows no shunting, or valvular lesions Continue on aspirin and Plavix, statin. 5. Acute hypoxic respiratory failure secondary to CAP, Acute on chronic CHF, PE ruled out with negative VQ scan Will continue on antibiotics and Lasix, incentive spirometer. Continue to wean off oxygen 6. Acute on chronic diastolic CHF, 65%/pulmonary hypertension, RVSP 43, continue on Lasix 40 mg PO BID, strict I's and O's, CHF protocol, labs in a.m. 7. Recent CAP, recently treated in [facility], on Augmentin, continued breathing treatments. Leukocytosis improving 12.8 thousand. Initially started on IV ceftriaxone and Zithromax on 05/18- and then discharged on Augmentin on 05/20. Total 8 days of antibiotics. 8. CARYN on CKD stage 3: Creatinine is stable between 2.1-2.4., renal ultrasound is negative, continue to trend 9. Hypertension, uncontrolled, continue on amlodipine, metoprolol, hydralazine. Patient is off lisinopril on account of CARYN on CKD 10. Skin tears of the anterior abdominal wall, severe candidal intertrigo of the abdominal wall, wound nurse consulted, on nystatin, topical wound preparation 11. Type 2 DM, blood sugars are controlled, continue on Lantus, insulin sliding scale with accucheks 12. CAD status post stent, on aspirin, statin, metoprolol, lisinopril 13. Morbid obesity, BMI 48.9 14. DVT PPx- Apixaban 15. Patient has Lynn catheter, put in ER on 05/18/2017. Discontinue Lynn catheter. Bladder scan every 4 hours and if PVR is more than 200 mL, intermittent catheterization. Code Visit Inpatient E&M: 64815 Subs Hosp L2
[2018-05-25] MEDS: Ipratropium/Albuterol Sulfate 3 ML AMPUL.NEB INHALATION (16:05)
--- NOTE | 2018-05-25 16:31 | CASEMGMT ---
Social Work Telephone call from Fredrick, patient son. Fredrick aware that patient will most likely need a chcf home stay after the Inpatient Rehab Unit. Fredrick reporting that choices of nursing facilities would be as follows with the first being the priority and so forth. 1. [facility] in [place], [place] ([phone]). 2. [facility] in [place], [place] ([phone]). 3. [facility] in [place], [place] . Fredrick lives close to all mentioned facilities. Fredrick also stating to be currently working on obtaining guardianship of patient. Fredrick plans to attend team meeting on morning. No discharge date set at this time and no contact has been made with mentioned facilities at this point. Will continue to follow. Maribeth NGUYEN, HUA
[2018-05-25 18:05] LABS: Bedside Glucose 117 mg/dL (70-110)
[2018-05-25] MEDS: Atorvastatin Calcium 40 MG Tablet PO (21:57)
[2018-05-25 22:35] LABS: Bedside Glucose 250 mg/dL (70-110)
[2018-05-26] VITALS (9 sets, daily range): BP systolic 126–165; BP diastolic 63–78; PULSE 66–76; RESP 12–16; TEMP 36.4; O2SAT 92–97; BMI 48.9
--- NOTE | 2018-05-26 01:39 | NURSING ---
Reviewed and agree with TROLLEY WORKER documentation and FIMs charting.
[2018-05-26] MEDS: Insulin Lispro 100 UNIT/ML INSULN.PEN SC ×4 (03:18→22:34)
[2018-05-26 03:35] LABS: Bedside Glucose 157 mg/dL (70-110)
[2018-05-26 06:09] LABS: Absolute Lymphocyte Count 1.14 X10^3/ul (0.83-4.51); Absolute Neutrophil Count 6.1 X10^3/uL (2.0-7.7); Basophil# 0.04 X10^3/uL; Basophil% 0.5 % (0-1); Eosinophil# 0.56 X10^3/uL; Eosinophils% 6.5 % (0-5); Hematocrit 27.2 % (37-47); Hemoglobin 8.2 g/dl (12.0-15.0); Lymphocyte # 1.14 X10^3/ul (4.0); Lymphocyte % 13.3 % (19-41); Mean Corp Hgb Conc 30.1 g/gl (32-36); Mean Corpuscular Hgb 27.2 pg (27.0-32.0); Mean Corpuscular Volume 90.4 fL (81-99); Mean Platelet Vol. 12.4 fl (6.2-12.0); Monocyte# 0.66 X10^3/uL; Monocyte% 7.7 % (0-10); Neutrophil # 6.14 X10^3/uL (2.7-7.7); Neutrophil % 71.5 % (47-70); Platelet Count 255 K/mm3 (150-450); RBC Distribution Width CV 14.1 % (11.6-14.6); RBC Distribution Width SD 44.6 fl (35.1-43.9); Red Blood Count 3.01 M/mm3 (4.2-5.4); White Blood Count 8.6 K/mm3 (4.4-11.0)
[2018-05-26 06:11] LABS: POSITIVE COUNT NO; POSITIVE DIFFERENTIAL NO; POSITIVE MORPHOLOGY NO
[2018-05-26 06:28] LABS: Anion Gap 10 (5-15); BUN 49 mg/dL (7-18); BUN/Creat Ratio 18.2 RATIO (10-20); Calcium,Total 7.5 mg/dL (8.5-10.1); Chloride 101 mmol/L (98-107); Creatinine, Serum 2.69 mg/dL (0.55-1.02); EST Glomerular Filtration Rate 20 mL/min (>60); Est Glom Filt Rate - Afr Amer 24 mL/min (>60); Estimated Creatinine Clearance 18.46 ml/min; Glucose 126 mg/dL (74-106); Potassium 4.1 mmol/L (3.5-5.1); Sodium Level 137 mmol/L (136-145)
[2018-05-26] MEDS: hydrALAZINE 50 MG Tablet PO ×3 (06:30→22:35)
[2018-05-26] MEDS: Menthol/Lanolin/Calamine/Znox 113 GM Tube 1 APPLIC TOPICAL ×4 (06:31→22:36)
[2018-05-26] MEDS: Nystatin Powder 15gm Bottle 1 APPLIC TOPICAL ×3 (06:31→22:33)
[2018-05-26 07:05] LABS: Bedside Glucose 124 mg/dL (70-110)
[2018-05-26] MEDS: Metoprolol(XL)Succ 100 MG Tablet PO (08:35)
[2018-05-26] MEDS: Gabapentin 300 MG Capsule PO ×3 (08:35→17:56)
[2018-05-26] MEDS: amLODIPine 10 MG Tablet PO (08:35)
[2018-05-26] MEDS: Furosemide 40 MG Tablet PO (08:35)
[2018-05-26] MEDS: Amox/Clavulanate 500 MG Tablet PO (08:35)
[2018-05-26] MEDS: DULoxetine Hcl 60 MG Capsule PO (08:36)
[2018-05-26] MEDS: APIXABAN 5 MG TABLET PO ×2 (08:36→22:35)
[2018-05-26] MEDS: NYSTATIN 500,000 UNIT/5 ML UDC 500000 UNIT PO ×4 (08:36→22:33)
--- NOTE | 2018-05-26 08:43 | RAD_ITS ---
STUDY: X-RAY CHEST REASON FOR EXAM: Female, 52 years old. Shortness of breath. TECHNIQUE: PA and lateral views of the chest. COMPARISON: Comparison is made with prior study May 22, 2018. FINDINGS: With significant, there is evidence of diffuse bilateral airspace disease. There has been mild improvement as compared to prior study. There is no demonstrated pleural abnormality. There is mild cardiac enlargement. Normal mediastinum and kristi. Normal visualized pulmonary arteries. There is atherosclerotic tortuosity of the aortic arch and descending thoracic aorta. There are diffuse degenerative changes of the visualized thoracic spine. Normal visualized ribs, clavicles, and shoulders. There is no demonstrated abnormality of the visualized soft tissue structures of the upper abdomen. RAD/Chest PA and Lateral IMPRESSION: Since prior study, there has been a mild improvement of the bilateral diffuse airspace disease. Electronically Signed: David Painting, at 13:31 EST , Service support ,
[2018-05-26 11:46] LABS: Bedside Glucose 221 mg/dL (70-110)
[2018-05-26] MEDS: Ondansetron ODT 4 MG Tablet PO (12:56)
--- NOTE | 2018-05-26 13:25 | CT_ITS ---
STUDY: CT BRAIN WITHOUT CONTRAST REASON FOR EXAM: Female, 52 years old. Confusion. Recent left middle cerebral artery territory infarction. RADIATION DOSAGE (If Supplied By Facility): CTDIvol = ( 44.99 ) mGy, DLP = ( 745.49 ) mGycm TECHNIQUE: Transaxial CT imaging of the brain was performed without administration of intravenous contrast material. Individualized dose optimization techniques were used for this CT. COMPARISON: Comparison is made with prior study dated May 20, 2018. FINDINGS: Normal soft tissue structures. Normal calvarium. Normal size ventricles and extra-axial spaces for the patient's age. Wasn't again, there is evidence of decreased attenuation in the left temporoparietal occipital lobes in keeping with the recent left middle cerebral artery territory infarction. Residual mass effect. There has been essentially no change. Normal basal ganglia and thalami. Normal brainstem. Normal cerebellum. There is no intracranial hemorrhage. There are no findings of an acute ischemic infarction. Normal visualized paranasal sinuses. CT/Brain/Head without Contrast IMPRESSION: Stable examination. Electronically Signed: David Painting, at 14:50 EST , Service support ,
--- NOTE | 2018-05-26 14:41 | PCM.PN.NEU ---
Subjective: No issues overnight. Care discussed with nursing staff. Is somewhat lethargic and slow to respond. Cr-2.69, slightly increased, will get repeat CT head and nephro consult. Lynn discontinued yesterday. Continues to have Skin tears of the anterior abdominal wall, candidal intertrigo of the abdominal wall, wound nurse consulted, on nystatin, topical wound preparation. Had nausea this morning - Physical Exam General: - - somewhat lethargic, but follows VC intermittently HEENT: Normocephalic Neck: Supple Lungs: Normal air movement Cardiovascular: Normal S1, Normal S2 Abdomen: Bowel Sounds Present Extremities: No cyanosis Neurological: - - CN 2-12 grossly intact, has receptive aphasia, comprehension is somewhat impaired, power 5/5 all 4 extremities, denies any sensory loss, no cerebellar signs, Reflexes + B/L B/S/T/K/A, gait deferred, NIHSS 2 at present. Psych/Mental Status: Normal Affect Vital Signs Temp Pulse Resp BP Pulse Ox 97.5 F L 69 16 134/63 H 97 05/26/18 08:31 05/26/18 13:00 05/26/18 08:31 05/26/18 13:00 05/26/18 08:31 Oxygen Flow Rate (L/min) 4 Oxygen Delivery Method Nasal Cannula Weight: 117.934 kg Body Mass Index (BMI) 48.9 Intake and Output for Last 24 Hours 05/24/18 05/25/18 05/26/18 23:59 23:59 23:59 Intake Total 920 / 920 1190 / 1190 510 / 510 Output Total 1750 / 1750 500 / 500 2 / 2 Balance -830 / -830 690 / 690 508 / 508 Laboratory Tests Past 24 Hrs 05/26/18 05/26/18 05:15 05:15 WBC 8.6 RBC 3.01 L Hgb 8.2 L Hct 27.2 L MCV 90.4 MCH 27.2 MCHC 30.1 L RDW 14.1 RDW Differential 44.6 H Plt Count 255 MPV 12.4 H Immature Gran % (Auto) 0.500 Neut % (Auto) 71.5 H Lymph % (Auto) 13.3 L [place] % (Auto) 7.7 Eos % (Auto) 6.5 H Baso % (Auto) 0.5 Absolute Neuts (auto) 6.1 Absolute Lymphs (auto) 1.14 Total Counted Not Reportable Sodium 137 Potassium 4.1 Chloride 101 Carbon Dioxide 26.0 Anion Gap 10 BUN 49 H Creatinine 2.69 H Estim Creat Clear Calc 18.46 Est GFR (MDRD) Af Amer 24 L Est GFR (MDRD) Non-Af 20 L BUN/Creatinine Ratio 18.2 Glucose 126 H Calcium 7.5 L POC Glucose 05/26/18 05/26/18 05/26/18 11:40 06:26 03:16 POC Glucose 221 H 124 H 157 H 05/25/18 05/25/18 21:56 17:29 POC Glucose 250 H 117 H Medical Necessity - Tobacco Use Smoking Status: Former smoker Assessment/Plan All Active Problems Acute kidney injury (Acute) Acute renal injury due to circulatory failure (Acute) Acute decompensated heart failure (Acute) 52 yr F with PMH HTN, HLD, DM, CAD s/p stents, Diastolic CHF, CKD, [place], recent h/o abdominal wall cellulitis, obesity, admitted to [facility] on 05/[facility]/18, with debility s/p acute left MCA stroke, for > 3 hrs therapy daily, with a goal of returning home at or near her prior level of functional independence. MRI brain reported to show large Left MCA stroke, MRA head/neck- no hemodynamically significant stenosis or occlusion. TTE-EF 60%, normal LA size, no PFO. LDL-63, Bnf4l-39.2. On Eliquis for acute DVT in left soleus vein. On Statins. Plan -PT for gait stability -OT for ADLs -ST for aphasia -Analgesics per protocol -Bowel protocol -Acute large Left MCA stroke-was on ASA and Plavix but was later found to have acute left soleal DVT and was started on Eliquis by hospitalist following which ASA/Plavix was held due to bleeding risk given the large left MCA stroke. 30 day event recorder on discharge. Repeat CT head 05/26/18 -Acute DVT- found to have acute left soleal DVT since admission to rehab unit, started on Eliquis by hospitalist. V/Q scan lung-low probability of PE. -HTN- goal BP < 130/80 mmHg. On Amlodipine and Metoprolol -HLD-on Lipitor 40 mg PO q hs. -DM- on Insulin -DM Neuropathy- on Gabapentin 300 mg PO TID and Cymbalta 60 mg PO once daily -CAD s/p stents and Diastolic CHF- on Lasix and metoprolol -COPD- on Albuterol and oxygen -Worsening creatinine- consult nephrology 05/26/18. recommended to decrease Lasix -Continues to have Skin tears of the anterior abdominal wall, wound nurse consult, on nystatin, topical wound preparation. Lynn removed 05/25/2018. Voiding appropriately since then. May have incontinence too -Hospitalist consult -Further medical management per hospitalist recommendations -Fall precautions -GI/DVT prophylaxis- Protonix/On Eliquis -Follow up with PCP, Neurology and Nephrology on discharge
--- NOTE | 2018-05-26 15:06 | PCM.CONS.R ---
Problem List (1) Acute kidney injury Status: Acute Consultation - Renal 05/26/18 PCP/ Referring MD: Requesting physician: Dr Gandhi Primary care physician: No Primary Care Phys Reason for Consultation:: CARYN CKD 3 - History of Present Illness History of Present Illness: The patient is a 52 year old F admitted to rehab unit after a recent stay at hospital. she has known history of diabetes, HTN, CKD stage 3. was recently admitted twice at hospital. first one was at [facility] with CHF and pneumonia. second one is at [facility] with a stroke. CKD stage 3 with baseline creatinine around 1.8. renal consulted for progressively worsening creatinine, upto 2.6 today - Allergies Allergies: Allergies No Known Allergies Allergy (Verified 05/18/18 18:45) - Current Medications Current Medications: Current Medications Acetaminophen (Tylenol) 650 mg PO Q6H PRN PRN PRN Reason: Mild Pain (0-3/10)/Headache Hydrocodone Bitart/Acetaminophen ([place] 5mg-325mg) 1 tablet PO Q12H PRN PRN PRN Reason: PAIN Albuterol Sulfate (Ventolin Aerosols) 2.5 mg INHALATION Q2H PRN PRN PRN Reason: SHORTNESS OF BREATH Albuterol/Ipratropium (Duoneb) 3 ml INHALATION Q4H.RT PRN PRN Reason: SHORTNESS OF BREATH Amlodipine Besylate (Norvasc) 10 mg PO DAILY [facility] Last Admin: 05/26/18 08:35 Dose: 10 mg Amoxicillin/Clavulanate Potassium (Augmentin Tablet) 500 mg PO BID [facility] Last Admin: 05/26/18 08:35 Dose: 500 mg Apixaban (Eliquis) 5 mg PO BID [facility] Last Admin: 05/26/18 08:36 Dose: 5 mg Atorvastatin Calcium (Lipitor) 40 mg PO QHS [facility] Last Admin: 05/25/18 21:57 Dose: 40 mg Bisacodyl (Dulcolax) 10 mg RECTAL .PRN X 1 PRN PRN Reason: Constipation Calamine/Phenol (Calmoseptine Ointment) 1 applic TOPICAL TID [facility]; Protocol Last Admin: 05/26/18 14:26 Dose: 1 applicatio Duloxetine HCl (Cymbalta) 60 mg PO DAILY [facility] Last Admin: 05/26/18 08:36 Dose: 60 mg Furosemide (Lasix) 40 mg PO DAILY [facility] Gabapentin (Neurontin) 300 mg PO TIDCM [facility] Last Admin: 05/26/18 12:56 Dose: 300 mg Hydralazine HCl (Apresoline) 50 mg PO TID [facility] Last Admin: 05/26/18 13:00 Dose: 50 mg Insulin Glargine (Lantus (Bk)) 10 units SC BID [facility] Last Admin: 05/26/18 08:35 Dose: 10 u Insulin Human Lispro (Humalog Kwikpen ([facility])) 0 unit SC ACHS & 3AM [facility]; Protocol Last Admin: 05/26/18 12:56 Dose: 4 u Loperamide HCl (Imodium) 2 mg PO Q4H PRN PRN PRN Reason: Diarrhea Last Admin: 05/23/18 07:59 Dose: 2 mg Magnesium Hydroxide (Milk Of Magnesia) 30 ml PO .PRN X 1 PRN PRN Reason: Constipation Metoprolol Succinate (Toprol Xl (Beta Ángela)) 100 mg PO DAILY [facility] Last Admin: 05/26/18 08:35 Dose: 100 mg Nystatin (Mycostatin Powder) 1 applic TOPICAL TID [facility]; Protocol Last Admin: 05/26/18 13:01 Dose: 1 applicatio Nystatin (Nystatin) 500,000 unit PO 4X/DAY [facility] Last Admin: 05/26/18 13:03 Dose: 500,000 unit Ondansetron HCl (Zofran Odt) 4 mg PO Q8H PRN PRN Reason: NAUSEA Last Admin: 05/26/18 12:56 Dose: 4 mg Pantoprazole Sodium (Protonix) 20 mg PO DAILY [facility] Senna/Docusate Sodium (Senokot-S, Brenda-Colace) 2 tablet PO BID [facility] Last Admin: 05/26/18 08:35 Dose: Not Given Sodium Chloride () 5 - 15 ml IV UD PRN PRN Reason: SALINE FLUSH Last Admin: 05/24/18 03:00 Dose: 10 ml Sodium Chloride ([place] Nasal [place]) 1 spray NASAL TID PRN PRN PRN Reason: NASAL DRYNESS - Past Medical History Past Medical History (Chronic Problems): Chronic Problems Morbid obesity (Chronic) Hypertension (Chronic) Diabetes (Chronic) - Past Surgical History Surgical History: - - Coronary stents. Patient is confused and further history cannot be obtained. - Social History Smoking Status: Former smoker - Family History Maternal History Items: Diabetes, Heart Disease Paternal History Items: Heart Disease, Hypertension Review of Systems Constitutional: Denies: Chills, Fever, Weight Change HEENT: Denies: Head Aches, Sinus Congestion, Sinus Drainage Cardiovascular: Denies: Chest Pain, Palpitations Respiratory: Denies: Cough, Shortness of breath at rest, Sputum production Gastrointestinal: Denies: Abdominal Pain, Nausea, Vomiting Genitourinary: Denies: Dysuria Musculoskeletal: Denies: Joint Pain, Joint Tenderness Skin: Denies: Rash, Wounds Neurological: Denies: Numbness, Tingling, Focal weakness Psychiatric: Denies: Anxiety, Depression, Homicidal Ideations, Suicidal Ideations Hematologic/ Lymphatic: Denies: Easy Bruising, Easy Bleeding - Physical Exam General: Alert, Oriented x3, Cooperative HEENT: Atraumatic, PERRLA, EOMI, Normocephalic Neck: Supple, No JVD, Negative Carotid Bruits Lungs: Clear to auscultation, Normal air movement Cardiovascular: Regular rate, No murmurs Abdomen: Bowel Sounds Present, Soft, Non Tender Extremities: No edema, Capillary Refill Less than 3 Seconds Skin: No rashes, No breakdown Musculoskeletal: No Tenderness to Palpation of Joints or Extremities Neurological: Cranial nerves II-XII grossly intact Psych/Mental Status: Normal Affect, Appropriate Vital Signs Temp Pulse Resp BP Pulse Ox 97.5 F L 69 16 134/63 H 97 05/26/18 08:31 05/26/18 13:00 05/26/18 08:31 05/26/18 13:00 05/26/18 08:31 Oxygen Flow Rate (L/min) 4 Oxygen Delivery Method Nasal Cannula Weight: 117.934 kg Body Mass Index (BMI) 48.9 Intake and Output for Last 24 Hours 05/24/18 05/25/18 05/26/18 23:59 23:59 23:59 Intake Total 920 / 920 1190 / 1190 510 / 510 Output Total 1750 / 1750 500 / 500 2 / 2 Balance -830 / -830 690 / 690 508 / 508 Laboratory Tests Past 24 Hrs 05/26/18 05/26/18 05:15 05:15 WBC 8.6 RBC 3.01 L Hgb 8.2 L Hct 27.2 L MCV 90.4 MCH 27.2 MCHC 30.1 L RDW 14.1 RDW Differential 44.6 H Plt Count 255 MPV 12.4 H Immature Gran % (Auto) 0.500 Neut % (Auto) 71.5 H Lymph % (Auto) 13.3 L [place] % (Auto) 7.7 Eos % (Auto) 6.5 H Baso % (Auto) 0.5 Absolute Neuts (auto) 6.1 Absolute Lymphs (auto) 1.14 Total Counted Not Reportable Sodium 137 Potassium 4.1 Chloride 101 Carbon Dioxide 26.0 Anion Gap 10 BUN 49 H Creatinine 2.69 H Estim Creat Clear Calc 18.46 Est GFR (MDRD) Af Amer 24 L Est GFR (MDRD) Non-Af 20 L BUN/Creatinine Ratio 18.2 Glucose 126 H Calcium 7.5 L POC Glucose 05/26/18 05/26/18 05/26/18 11:40 06:26 03:16 POC Glucose 221 H 124 H 157 H 05/25/18 05/25/18 21:56 17:29 POC Glucose 250 H 117 H Assessment/Plan All Active Problems Acute kidney injury (Acute) Acute renal injury due to circulatory failure (Acute) Acute decompensated heart failure (Acute) CARYN CKD stage 3 Baseline creatinine is around 1.8 renal US is ok UA looks dirty but thats a cortes sample cortes removed today with plans for serial bladder scans Bp is ok worsening creatinine is likely related to diuretics, cut back on lasix 40 mg daily review of CXR from current and past admissions. patient consistently has interstitial infiltrates dating back to 2018. infiltrates are more consistent with interstitial lung disease rather than edema. no significant change in X Ray with diuretics. ? ILD. will check with pulmonology to see if any work up needed. d/w Dr Gandhi and Dr Dunn
--- NOTE | 2018-05-26 15:11 | CON.PCM_ITS ---
Problem List (1) Acute kidney injury Status: Acute Consultation - Renal 05/26/18 PCP/ Referring MD: Requesting physician: Dr Gandhi Primary care physician: No Primary Care Phys Reason for Consultation:: CARYN CKD 3 - History of Present Illness History of Present Illness: The patient is a 52 year old F admitted to rehab unit after a recent stay at hospital. she has known history of diabetes, HTN, CKD stage 3. was recently admitted twice at hospital. first one was at [facility] with CHF and pneumonia. second one is at [facility] with a stroke. CKD stage 3 with baseline creatinine around 1.8. renal consulted for progressively worsening creatinine, upto 2.6 today - Allergies Allergies: Allergies No Known Allergies Allergy (Verified 05/18/18 18:45) - Current Medications Current Medications: Current Medications Acetaminophen (Tylenol) 650 mg PO Q6H PRN PRN PRN Reason: Mild Pain (0-3/10)/Headache Hydrocodone Bitart/Acetaminophen (Closter 5mg-325mg) 1 tablet PO Q12H PRN PRN PRN Reason: PAIN Albuterol Sulfate (Ventolin Aerosols) 2.5 mg INHALATION Q2H PRN PRN PRN Reason: SHORTNESS OF BREATH Albuterol/Ipratropium (Duoneb) 3 ml INHALATION Q4H.RT PRN PRN Reason: SHORTNESS OF BREATH Amlodipine Besylate (Norvasc) 10 mg PO DAILY [facility] Last Admin: 05/26/18 08:35 Dose: 10 mg Amoxicillin/Clavulanate Potassium (Augmentin Tablet) 500 mg PO BID [facility] Last Admin: 05/26/18 08:35 Dose: 500 mg Apixaban (Eliquis) 5 mg PO BID [facility] Last Admin: 05/26/18 08:36 Dose: 5 mg Atorvastatin Calcium (Lipitor) 40 mg PO QHS [facility] Last Admin: 05/25/18 21:57 Dose: 40 mg Bisacodyl (Dulcolax) 10 mg RECTAL .PRN X 1 PRN PRN Reason: Constipation Calamine/Phenol (Calmoseptine Ointment) 1 applic TOPICAL TID [facility]; Protocol Last Admin: 05/26/18 14:26 Dose: 1 applicatio Duloxetine HCl (Cymbalta) 60 mg PO DAILY [facility] Last Admin: 05/26/18 08:36 Dose: 60 mg Furosemide (Lasix) 40 mg PO DAILY [facility] Gabapentin (Neurontin) 300 mg PO TIDCM [facility] Last Admin: 05/26/18 12:56 Dose: 300 mg Hydralazine HCl (Apresoline) 50 mg PO TID [facility] Last Admin: 05/26/18 13:00 Dose: 50 mg Insulin Glargine (Lantus (Bk)) 10 units SC BID [facility] Last Admin: 05/26/18 08:35 Dose: 10 u Insulin Human Lispro (Humalog Kwikpen ([facility])) 0 unit SC ACHS & 3AM [facility]; Protocol Last Admin: 05/26/18 12:56 Dose: 4 u Loperamide HCl (Imodium) 2 mg PO Q4H PRN PRN PRN Reason: Diarrhea Last Admin: 05/23/18 07:59 Dose: 2 mg Magnesium Hydroxide (Milk Of Magnesia) 30 ml PO .PRN X 1 PRN PRN Reason: Constipation Metoprolol Succinate (Toprol Xl (Beta Ángela)) 100 mg PO DAILY [facility] Last Admin: 05/26/18 08:35 Dose: 100 mg Nystatin (Mycostatin Powder) 1 applic TOPICAL TID [facility]; Protocol Last Admin: 05/26/18 13:01 Dose: 1 applicatio Nystatin (Nystatin) 500,000 unit PO 4X/DAY [facility] Last Admin: 05/26/18 13:03 Dose: 500,000 unit Ondansetron HCl (Zofran Odt) 4 mg PO Q8H PRN PRN Reason: NAUSEA Last Admin: 05/26/18 12:56 Dose: 4 mg Pantoprazole Sodium (Protonix) 20 mg PO DAILY [facility] Senna/Docusate Sodium (Senokot-S, Brenda-Colace) 2 tablet PO BID [facility] Last Admin: 05/26/18 08:35 Dose: Not Given Sodium Chloride () 5 - 15 ml IV UD PRN PRN Reason: SALINE FLUSH Last Admin: 05/24/18 03:00 Dose: 10 ml Sodium Chloride ([place] Nasal [place]) 1 spray NASAL TID PRN PRN PRN Reason: NASAL DRYNESS - Past Medical History Past Medical History (Chronic Problems): Chronic Problems Morbid obesity (Chronic) Hypertension (Chronic) Diabetes (Chronic) - Past Surgical History Surgical History: - - Coronary stents. Patient is confused and further history cannot be obtained. - Social History Smoking Status: Former smoker - Family History Maternal History Items: Diabetes, Heart Disease Paternal History Items: Heart Disease, Hypertension Review of Systems Constitutional: Denies: Chills, Fever, Weight Change HEENT: Denies: Head Aches, Sinus Congestion, Sinus Drainage Cardiovascular: Denies: Chest Pain, Palpitations Respiratory: Denies: Cough, Shortness of breath at rest, Sputum production Gastrointestinal: Denies: Abdominal Pain, Nausea, Vomiting Genitourinary: Denies: Dysuria Musculoskeletal: Denies: Joint Pain, Joint Tenderness Skin: Denies: Rash, Wounds Neurological: Denies: Numbness, Tingling, Focal weakness Psychiatric: Denies: Anxiety, Depression, Homicidal Ideations, Suicidal Ideations Hematologic/ Lymphatic: Denies: Easy Bruising, Easy Bleeding - Physical Exam General: Alert, Oriented x3, Cooperative HEENT: Atraumatic, PERRLA, EOMI, Normocephalic Neck: Supple, No JVD, Negative Carotid Bruits Lungs: Clear to auscultation, Normal air movement Cardiovascular: Regular rate, No murmurs Abdomen: Bowel Sounds Present, Soft, Non Tender Extremities: No edema, Capillary Refill Less than 3 Seconds Skin: No rashes, No breakdown Musculoskeletal: No Tenderness to Palpation of Joints or Extremities Neurological: Cranial nerves II-XII grossly intact Psych/Mental Status: Normal Affect, Appropriate Vital Signs Temp Pulse Resp BP Pulse Ox 97.5 F L 69 16 134/63 H 97 05/26/18 08:31 05/26/18 13:00 05/26/18 08:31 05/26/18 13:00 05/26/18 08:31 Oxygen Flow Rate (L/min) 4 Oxygen Delivery Method Nasal Cannula Weight: 117.934 kg Body Mass Index (BMI) 48.9 Intake and Output for Last 24 Hours 05/24/18 05/25/18 05/26/18 23:59 23:59 23:59 Intake Total 920 / 920 1190 / 1190 510 / 510 Output Total 1750 / 1750 500 / 500 2 / 2 Balance -830 / -830 690 / 690 508 / 508 Laboratory Tests Past 24 Hrs 05/26/18 05/26/18 05:15 05:15 WBC 8.6 RBC 3.01 L Hgb 8.2 L Hct 27.2 L MCV 90.4 MCH 27.2 MCHC 30.1 L RDW 14.1 RDW Differential 44.6 H Plt Count 255 MPV 12.4 H Immature Gran % (Auto) 0.500 Neut % (Auto) 71.5 H Lymph % (Auto) 13.3 L [place] % (Auto) 7.7 Eos % (Auto) 6.5 H Baso % (Auto) 0.5 Absolute Neuts (auto) 6.1 Absolute Lymphs (auto) 1.14 Total Counted Not Reportable Sodium 137 Potassium 4.1 Chloride 101 Carbon Dioxide 26.0 Anion Gap 10 BUN 49 H Creatinine 2.69 H Estim Creat Clear Calc 18.46 Est GFR (MDRD) Af Amer 24 L Est GFR (MDRD) Non-Af 20 L BUN/Creatinine Ratio 18.2 Glucose 126 H Calcium 7.5 L POC Glucose 05/26/18 05/26/18 05/26/18 11:40 06:26 03:16 POC Glucose 221 H 124 H 157 H 05/25/18 05/25/18 21:56 17:29 POC Glucose 250 H 117 H Assessment/Plan All Active Problems Acute kidney injury (Acute) Acute renal injury due to circulatory failure (Acute) Acute decompensated heart failure (Acute) CARYN CKD stage 3 Baseline creatinine is around 1.8 renal US is ok UA looks dirty but thats a cortes sample cortes removed today with plans for serial bladder scans Bp is ok worsening creatinine is likely related to diuretics, cut back on lasix 40 mg daily review of CXR from current and past admissions. patient consistently has interstitial infiltrates dating back to 2018. infiltrates are more consistent with interstitial lung disease rather than edema. no significant change in X Ray with diuretics. ? ILD. will check with pulmonology to see if any work up needed. d/w Dr Gandhi and Dr Dunn
[2018-05-26 17:21] LABS: Bedside Glucose 212 mg/dL (70-110)
[2018-05-26 21:11] LABS: Bedside Glucose 208 mg/dL (70-110)
[2018-05-26] MEDS: Senna/Docusate Sodium 1 Tablet 2 TABLET PO (22:33)
[2018-05-26] MEDS: Atorvastatin Calcium 40 MG Tablet PO (22:33)
[2018-05-26 22:50] LABS: Bedside Glucose 197 mg/dL (70-110)
[2018-05-27] VITALS (12 sets, daily range): BP systolic 115–130; BP diastolic 61–74; PULSE 68–74; RESP 18–20; TEMP 36.6–37.3; O2SAT 84–98; BMI 48.9
[2018-05-27 03:11] LABS: Bedside Glucose 209 mg/dL (70-110)
[2018-05-27] MEDS: Insulin Lispro 100 UNIT/ML INSULN.PEN SC ×4 (03:12→18:05)
[2018-05-27 06:36] LABS: Bedside Glucose 190 mg/dL (70-110)
[2018-05-27] MEDS: hydrALAZINE 50 MG Tablet PO ×3 (06:53→22:59)
[2018-05-27] MEDS: Menthol/Lanolin/Calamine/Znox 113 GM Tube 1 APPLIC TOPICAL ×3 (06:57→22:59)
[2018-05-27] MEDS: Nystatin Powder 15gm Bottle 1 APPLIC TOPICAL ×3 (06:57→22:57)
--- NOTE | 2018-05-27 10:39 | PN.NEURO_ITS ---
Subjective: No issues overnight. Care discussed with nursing staff. Staffed in team meeting today. All questions were answered. Is somewhat lethargic and slow to respond. Cr-2.69, Nephrology decreased lasix. Repeat CT head- stable. Lynn discontinued 05/25/18. Continues to have Skin tears of the anterior abdominal wall, wound nurse consulted, on nystatin, topical wound preparation. Further therapy details per PT/OT/ST notes. Per therapy she did not get > 3 hrs therapy yesterday (05/26/18) - Physical Exam General: - - somewhat lethargic, but follows VC intermittently HEENT: Normocephalic Neck: Supple Lungs: Normal air movement Cardiovascular: Normal S1, Normal S2 Abdomen: Bowel Sounds Present Extremities: No cyanosis Neurological: - - CN 2-12 grossly intact, has receptive aphasia, comprehension is somewhat impaired, power 5/5 all 4 extremities, denies any sensory loss, no cerebellar signs, Reflexes + B/L B/S/T/K/A, gait deferred, NIHSS 2 at present. Vital Signs Temp Pulse Resp BP Pulse Ox 98 F 73 18 117/65 92 05/27/18 09:48 05/27/18 09:48 05/27/18 09:48 05/27/18 09:48 05/27/18 09:48 Oxygen Flow Rate (L/min) 5 Oxygen Delivery Method Nasal Cannula Weight: 117.934 kg Body Mass Index (BMI) 48.9 Intake and Output for Last 24 Hours 05/25/18 05/26/18 05/27/18 23:59 23:59 23:59 Intake Total 1190 / 1190 610 / 610 10 / 10 Output Total 500 / 500 2 / 2 200 / 200 Balance 690 / 690 608 / 608 -190 / -190 POC Glucose 05/27/18 05/27/18 05/26/18 06:29 03:06 22:31 POC Glucose 190 H 209 H 197 H 05/26/18 05/26/18 05/26/18 21:06 17:16 11:40 POC Glucose 208 H 212 H 221 H Medical Necessity - Tobacco Use Smoking Status: Former smoker Assessment/Plan All Active Problems Acute kidney injury (Acute) Acute renal injury due to circulatory failure (Acute) Acute decompensated heart failure (Acute) 52 yr F with PMH HTN, HLD, DM, CAD s/p stents, Diastolic CHF, CKD, [place], recent h/o abdominal wall cellulitis, obesity, admitted to [facility] on 05/21/18, with debility s/p acute left MCA stroke, for > 3 hrs therapy daily, with a goal of returning home at or near her prior level of functional independence. MRI brain reported to show large Left MCA stroke, MRA head/neck- no hemodynamically significant stenosis or occlusion. TTE-EF 60%, normal LA size, no PFO. LDL-63, Xaw5j-22.2. On Eliquis for acute DVT in left soleus vein. On Statins. Plan -PT for gait stability -OT for ADLs -ST for aphasia -Analgesics per protocol -Bowel protocol -Check LFTs, ammonia and UA. worsening mentation. -Acute large Left MCA stroke-was on ASA and Plavix but was later found to have acute left soleal DVT and was started on Eliquis by hospitalist following which ASA/Plavix was held due to bleeding risk given the large left MCA stroke. 30 day event recorder on discharge. Repeat CT head 05/26/18-stable -Acute DVT- found to have acute left soleal DVT since admission to rehab unit, started on Eliquis by hospitalist. V/Q scan lung-low probability of PE. -HTN- goal BP < 130/80 mmHg. On Amlodipine and Metoprolol -HLD-on Lipitor 40 mg PO q hs. -DM- on Insulin -DM Neuropathy- on Gabapentin 300 mg PO TID and Cymbalta 60 mg PO once daily -CAD s/p stents and Diastolic CHF- on Lasix and metoprolol -COPD- on Albuterol and oxygen -CKD-Worsening creatinine- consult nephrology 05/26/18. recommended to decrease Lasix. Nephrology concerned about possible ILD, needs Pulmonology consult as outpatient -Continues to have Skin tears of the anterior abdominal wall, wound nurse consult, on nystatin, topical wound preparation. Lynn removed 05/25/2018. Voiding appropriately since then. May have incontinence too -Hospitalist consult -Further medical management per hospitalist recommendations -Fall precautions -GI/DVT prophylaxis- Protonix/On Eliquis -Follow up with PCP, Neurology, Pulmonology and Nephrology on discharge
[2018-05-27] MEDS: Pantoprazole Sodium 20 MG Tablet PO (11:47)
[2018-05-27] MEDS: DULoxetine Hcl 60 MG Capsule PO (11:47)
[2018-05-27] MEDS: Gabapentin 300 MG Capsule PO ×3 (11:47→18:07)
[2018-05-27] MEDS: Metoprolol(XL)Succ 100 MG Tablet PO (11:48)
[2018-05-27] MEDS: Furosemide 40 MG Tablet PO (11:48)
[2018-05-27] MEDS: NYSTATIN 500,000 UNIT/5 ML UDC 500000 UNIT PO ×4 (11:48→22:56)
[2018-05-27] MEDS: APIXABAN 5 MG TABLET PO ×2 (11:48→22:59)
[2018-05-27] MEDS: Senna/Docusate Sodium 1 Tablet 2 TABLET PO ×2 (11:48→22:56)
[2018-05-27] MEDS: amLODIPine 10 MG Tablet PO (11:49)
[2018-05-27 12:00] LABS: AST(SGOT) 21 U/L (15-37); Alanine Aminotransfer ALT/SGPT 17 U/L (13-56); Albumin, Serum 1.7 g/dL (3.2-5.0); Alkaline Phosphatase 142 U/L (45-117); Bilirubin, Direct 0.13 mg/dL (0.00-0.30); Protein, Total 6.7 g/dL (6.4-8.2)
[2018-05-27 12:10] LABS: Bedside Glucose 234 mg/dL (70-110)
--- NOTE | 2018-05-27 13:18 | PCM.PN.REN ---
Subjective: no new events - Physical Exam General: Alert, Oriented x3, Cooperative HEENT: Atraumatic, PERRLA, EOMI, Normocephalic Neck: Supple, No JVD, Negative Carotid Bruits Lungs: Clear to auscultation, Normal air movement Cardiovascular: Regular rate, No murmurs Abdomen: Bowel Sounds Present, Soft, Non Tender Extremities: No edema, Capillary Refill Less than 3 Seconds Skin: No rashes, No breakdown Musculoskeletal: No Tenderness to Palpation of Joints or Extremities Psych/Mental Status: Normal Affect, Appropriate Vital Signs Temp Pulse Resp BP Pulse Ox 98 F 73 18 117/65 92 05/27/18 09:48 05/27/18 11:48 05/27/18 09:48 05/27/18 11:48 05/27/18 09:48 Oxygen Flow Rate (L/min) 3 Oxygen Delivery Method Nasal Cannula Weight: 117.934 kg Body Mass Index (BMI) 48.9 Intake and Output for Last 24 Hours 05/25/18 05/26/18 05/27/18 23:59 23:59 23:59 Intake Total 1190 / 1190 610 / 610 10 / 10 Output Total 500 / 500 2 / 2 200 / 200 Balance 690 / 690 608 / 608 -190 / -190 Laboratory Tests Past 24 Hrs 05/27/18 05/27/18 11:22 11:46 Total Bilirubin 0.50 Direct Bilirubin 0.13 AST 21 ALT 17 Alkaline Phosphatase 142 H Ammonia 23.0 Total Protein 6.7 Albumin 1.7 L Globulin 5.0 H POC Glucose 05/27/18 05/27/18 05/27/18 12:08 06:29 03:06 POC Glucose 234 H 190 H 209 H 05/26/18 05/26/18 05/26/18 22:31 21:06 17:16 POC Glucose 197 H 208 H 212 H Medical Necessity - Tobacco Use Smoking Status: Former smoker Assessment/Plan All Active Problems Acute kidney injury (Acute) Acute renal injury due to circulatory failure (Acute) Acute decompensated heart failure (Acute) CARYN CKD stage 3 Baseline creatinine is around 1.8 renal US is ok UA looks dirty but thats a cortes sample cortes removed, serial bladder scans Bp is ok lasix cut back yesterday, will check BMP in 2 days and assess continue bladder scan outpatient follow up with pulmonary regarding lung findings
--- NOTE | 2018-05-27 13:48 | CASEMGMT ---
Team meeting held. Patient present as well as patient family. No discharge date set at this time. Patient did not get full 3 hours of therapy in yesterday, team to see if patient is able to get all 3 hours of therapy in today and then determine if patient is able to continue to stay from there. Patient approved 23 Medicare days with a discharge on or by 06/12/18. As noted in prior notes discussion has been had with patient son and plan would be for patient to discharge to a Skilled facility in [facility] with first, second and third choices noted in prior note. Patient to continue with further care and treatment on the Inpatient Rehab Unit at this time. Support given. Will continue to follow. HUA Roca
--- NOTE | 2018-05-27 16:39 | CASEMGMT ---
Social Work Following up with team. Team reporting that patient got 3 hours of therapy in today. No discharge date set at this time. Patient to continue with services. Maribeth Hutton MSW, HUA
[2018-05-27 17:40] LABS: Bedside Glucose 199 mg/dL (70-110)
--- NOTE | 2018-05-27 19:50 | NURSING ---
WHILE PREPARING TO STRAIGHT CATH PT TO OBTAIN ORDERED STERILE URINE SPECIMEN, PT IN INCONTINENT OF APPROX 250 ML OF LIGHT BROWN URINE WITH ODOR. NO ADDITIONAL URINE FOUND IN BLADDER WITH STRAIGHT CATH AND SPECIMEN NOT ABLE TO BE OBTAINED AT THIS TIME. PT'S SKIN FEELS HOT. PT DOES OCCASIONAL TWITCH LIKE MOVEMENTS. PT IS COOPERATIVE, BUT SLEEPY.
[2018-05-27 22:20] LABS: Mucous, Urine 0 SEEN /hpf (<or=2+)
[2018-05-27 22:29] LABS: Color, Urine Amber (Yellow); Glucose, Dipstick 50 mg/dl (Normal); Ketone-Dipstick Negative (Negative); Leukocyte Esterase-Dipstick 500 /ul (Negative); Nitrite-Dipstick Negative (Negative); Occult Blood-Urine 250 /ul (Negative); Protein-Dipstick 500 mg/dl (Negative); Urine Bilirubin Dipstick Negative (Negative); Urine Clarity Cloudy (Clear); Urine Urobilinogen Normal (Normal)
[2018-05-27 22:32] LABS: Bacteria RARE /hpf (None Seen); Red Blood Cells-Urine 50-100 SEEN /hpf (0-5); Squamous Epithelial Cells - UA 0-5 SEEN /hpf (5-10); White Blood Cells >100 SEEN /hpf (0-5)
[2018-05-27] MEDS: Atorvastatin Calcium 40 MG Tablet PO (22:57)
[2018-05-27 23:21] LABS: Bedside Glucose 148 mg/dL (70-110)
--- NOTE | 2018-05-27 23:29 | NURSING ---
DR BUCKNER NOTIFIED OF [facility] RESULTS. ORDERS GIVEN.
[2018-05-27] MEDS: Ciprofloxacin 250 MG Tablet PO (23:59)
[2018-05-28] VITALS (10 sets, daily range): BP systolic 112–129; BP diastolic 56–72; PULSE 65–70; RESP 12–18; TEMP 36.6–36.8; O2SAT 86–97; BMI 48.9
--- NOTE | 2018-05-28 02:00 | NURSING ---
PT AWARE THAT SHE HAS WET HERSELF. ATTENDS WITH MOD AMT OF HEMATURIA AND SMALL AMT OF BASSEM BLOOD WITH ONE 1CM SIZE CLOT. PT DENIES PAIN IN BACK OR ABDOMEN. BLADDER SCANNED FOR 17 ML URINE. PT DENIES THAT SHE IS HAS MENTRUAL PERIODS STILL. PT IS INTERRMITTENLY NOT EXPRESSIVE APHASIC. PT RETURNS TO RESTING WITH EYES CLOSED.
[2018-05-28 03:11] LABS: Bedside Glucose 126 mg/dL (70-110)
[2018-05-28] MEDS: hydrALAZINE 50 MG Tablet PO ×3 (05:45→21:58)
[2018-05-28] MEDS: Nystatin Powder 15gm Bottle 1 APPLIC TOPICAL ×3 (05:45→21:59)
[2018-05-28] MEDS: Menthol/Lanolin/Calamine/Znox 113 GM Tube 1 APPLIC TOPICAL ×3 (05:45→21:58)
[2018-05-28 07:05] LABS: Bedside Glucose 99 mg/dL (70-110)
--- NOTE | 2018-05-28 09:51 | CASEMGMT ---
Social Work Received a phone call from pt sister June. June expressing concerns that pt is being discharged to a skilled nursing on Thursday. RAN explained to June that as long as pt participates in three hours of therapy daily and continues to make progress pt will stay in rehab unit for Medicare allowed days. No d/c date set at this time. June stating she wants to take pt home with her at d/c and will care for her although she is looking for a first shift job and therefore will not be available during the day. June does not feel pt son should pursue NH placement. RAN encouraged June to speak with pt son to work out a d/c plan that is satisfactory to both parties. RAN will continue to follow for support and d/c planning. GERALD Jara
--- NOTE | 2018-05-28 10:22 | PCM.PN.NEU ---
Subjective: No issues overnight. Care discussed with nursing staff. UA 05/27/2018-LE 500, urine WBC >100, started on ciprofloxacin by hospitalist. ?occasional twitching movement in body per nurse, but no witnessed seizures. possibly due to worsened creatinine. Nothing noted this morning. - Physical Exam General: - - opens eyes, was able to do therapy per PT HEENT: Normocephalic Neck: Supple Lungs: Normal air movement Cardiovascular: Normal S1, Normal S2 Abdomen: Bowel Sounds Present Extremities: No cyanosis Neurological: - - - CN 2-12 grossly intact, has receptive aphasia, intermittently follows VC, comprehension is somewhat impaired, power 5/5 all 4 extremities, denies any sensory loss, no cerebellar signs, Reflexes + B/L B/S/T/K/A, gait deferred, NIHSS 2 at present. Psych/Mental Status: Normal Affect Vital Signs Temp Pulse Resp BP Pulse Ox 97.8 F 70 12 112/62 86 05/28/18 07:00 05/28/18 07:00 05/28/18 07:00 05/28/18 07:00 05/28/18 08:11 Oxygen Flow Rate (L/min) 3 Oxygen Delivery Method Nasal Cannula Weight: 117.934 kg Body Mass Index (BMI) 48.9 Intake and Output for Last 24 Hours 05/26/18 05/27/18 05/28/18 23:59 23:59 23:59 Intake Total 610 / 610 10 / 10 540 / 540 Output Total 2 / 2 200 / 200 200 / 200 Balance 608 / 608 -190 / -190 340 / 340 Laboratory Tests Past 24 Hrs 05/27/18 05/27/18 05/27/18 11:22 11:46 21:35 Total Bilirubin 0.50 Direct Bilirubin 0.13 AST 21 ALT 17 Alkaline Phosphatase 142 H Ammonia 23.0 Total Protein 6.7 Albumin 1.7 L Globulin 5.0 H Urine Color [place] Urine Clarity Cloudy Urine pH 6.0 Ur Specific [place] 1.020 Urine Protein 500 H Urine Glucose (UA) 50 H Urine Ketones Negative Urine Occult Blood 250 H Urine Nitrite Negative Urine Bilirubin Negative Urine Urobilinogen Normal Ur Leukocyte Esterase 500 H Urine RBC 50-100 SEEN Urine WBC >100 SEEN Ur Squamous Epith Cells 0-5 SEEN Urine Bacteria RARE Urine Mucus 0 SEEN POC Glucose 05/28/18 05/28/18 05/27/18 07:00 02:49 22:54 POC Glucose 99 126 H 148 H 05/27/18 05/27/18 16:59 12:08 POC Glucose 199 H 234 H Medical Necessity - Tobacco Use Smoking Status: Former smoker Assessment/Plan All Active Problems Acute kidney injury (Acute) Acute renal injury due to circulatory failure (Acute) Acute decompensated heart failure (Acute) 52 yr F with PMH HTN, HLD, DM, CAD s/p stents, Diastolic CHF, CKD, [place], recent h/o abdominal wall cellulitis, obesity, admitted to [facility] on 05/21/18, with debility s/p acute left MCA stroke, for > 3 hrs therapy daily, with a goal of returning home at or near her prior level of functional independence. MRI brain reported to show large Left MCA stroke, MRA head/neck- no hemodynamically significant stenosis or occlusion. TTE-EF 60%, normal LA size, no PFO. LDL-63, Yig4p-64.2. On Eliquis for acute DVT in left soleus vein. On Statins. Plan -PT for gait stability -OT for ADLs -ST for aphasia -Analgesics per protocol -Bowel protocol -Check LFTs- AST/ALT-, ammonia-23 and UA-LE 500, urine WBC >100. Started on Ciprofloxacin on 05/27/2018 by hospitalist -Acute large Left MCA stroke-was on ASA and Plavix but was later found to have acute left soleal DVT and was started on Eliquis by hospitalist following which ASA/Plavix was held due to bleeding risk given the large left MCA stroke. 30 day event recorder on discharge. Repeat CT head 05/26/18-stable -Acute DVT- found to have acute left soleal DVT since admission to rehab unit, started on Eliquis by hospitalist. V/Q scan lung-low probability of PE. -HTN- goal BP < 130/80 mmHg. On Amlodipine and Metoprolol -HLD-on Lipitor 40 mg PO q hs. -DM- on Insulin -DM Neuropathy- on Gabapentin 300 mg PO TID and Cymbalta 60 mg PO once daily -CAD s/p stents and Diastolic CHF- on Lasix and metoprolol -COPD- on Albuterol and oxygen -CKD-Worsening creatinine- consult nephrology 05/26/18. recommended to decrease Lasix. Nephrology concerned about possible ILD, needs Pulmonology consult as outpatient -Continues to have Skin tears of the anterior abdominal wall but improving per nurse, wound nurse consult, on nystatin, topical wound preparation. Lynn removed 05/25/2018. Voiding appropriately since then. May have incontinence too -Hospitalist consult -Further medical management per hospitalist recommendations -Fall precautions -GI/DVT prophylaxis- Protonix/On Eliquis -Follow up with PCP, Neurology, Pulmonology and Nephrology on discharge
[2018-05-28] MEDS: Metoprolol(XL)Succ 100 MG Tablet PO (11:47)
[2018-05-28] MEDS: Senna/Docusate Sodium 1 Tablet 2 TABLET PO ×2 (11:47→22:00)
[2018-05-28] MEDS: Gabapentin 300 MG Capsule PO ×3 (11:48→16:47)
[2018-05-28] MEDS: amLODIPine 10 MG Tablet PO (11:48)
[2018-05-28] MEDS: Furosemide 40 MG Tablet PO (11:48)
[2018-05-28] MEDS: Ciprofloxacin 250 MG Tablet PO ×2 (11:48→21:58)
[2018-05-28] MEDS: Pantoprazole Sodium 20 MG Tablet PO (11:48)
[2018-05-28] MEDS: DULoxetine Hcl 60 MG Capsule PO (11:48)
[2018-05-28] MEDS: APIXABAN 5 MG TABLET PO ×2 (11:48→21:59)
[2018-05-28] MEDS: NYSTATIN 500,000 UNIT/5 ML UDC 500000 UNIT PO ×4 (11:48→22:00)
[2018-05-28 11:51] LABS: Bedside Glucose 139 mg/dL (70-110)
--- NOTE | 2018-05-28 12:36 | PCM.PN.REN ---
Subjective: no new events - Physical Exam General: Alert, Oriented x3, Cooperative HEENT: Atraumatic, PERRLA, EOMI, Normocephalic Neck: Supple, No JVD, Negative Carotid Bruits Lungs: Clear to auscultation, Normal air movement Cardiovascular: Regular rate, No murmurs Abdomen: Bowel Sounds Present, Soft, Non Tender Extremities: No edema, Capillary Refill Less than 3 Seconds Skin: No rashes, No breakdown Musculoskeletal: No Tenderness to Palpation of Joints or Extremities Neurological: Cranial nerves II-XII grossly intact Psych/Mental Status: Normal Affect, Appropriate Vital Signs Temp Pulse Resp BP Pulse Ox 97.8 F 70 12 112/62 93 05/28/18 07:00 05/28/18 11:47 05/28/18 07:00 05/28/18 11:47 05/28/18 10:00 Oxygen Flow Rate (L/min) 4 Oxygen Delivery Method Nasal Cannula Weight: 117.934 kg Body Mass Index (BMI) 48.9 Intake and Output for Last 24 Hours 05/26/18 05/27/18 05/28/18 23:59 23:59 23:59 Intake Total 610 / 610 10 540 / 540 Output Total 2 / 2 200 / 200 200 / 200 Balance 608 / 608 -190 / -190 340 / 340 Laboratory Tests Past 24 Hrs 05/27/18 21:35 Urine Color Martine Urine Clarity Cloudy Urine pH 6.0 Ur Specific [place] 1.020 Urine Protein 500 H Urine Glucose (UA) 50 H Urine Ketones Negative Urine Occult Blood 250 H Urine Nitrite Negative Urine Bilirubin Negative Urine Urobilinogen Normal Ur Leukocyte Esterase 500 H Urine RBC 50-100 SEEN Urine WBC >100 SEEN Ur Squamous Epith Cells 0-5 SEEN Urine Bacteria RARE Urine Mucus 0 SEEN POC Glucose 05/28/18 05/28/18 05/28/18 11:44 07:00 02:49 POC Glucose 139 H 99 126 H 05/27/18 05/27/18 22:54 16:59 POC Glucose 148 H 199 H Medical Necessity - Tobacco Use Smoking Status: Former smoker Assessment/Plan All Active Problems Acute kidney injury (Acute) Acute renal injury due to circulatory failure (Acute) Acute decompensated heart failure (Acute) CARYN CKD stage 3 Baseline creatinine is around 1.8 renal US is ok urine culture is positive, abx as per primary she didnt complain to me but as per Dr Atkins note there is some twitching reviewed med list Plan BMP in am depending on creatinine levels, her allopurinol may need to be adjusted will follow
[2018-05-28 16:31] LABS: Bedside Glucose 143 mg/dL (70-110)
[2018-05-28] MEDS: Glucerna Shake 120 ML LIQUID PO ×2 (16:46→21:59)
--- NOTE | 2018-05-28 16:51 | PCM.PN.HOSP ---
Subjective: Seen and examined. UA is positive of pyuria, more than 100 cells, RBC 5200 cells, leukocyte esterase 500. Nitrite negative. Patient was started on Cipro. Patient given his elevated in 40s. Creatinine around 2.5. Patient seen by [place] firestop/containment worker. Vitals/I&O's: Vital Signs Temp Pulse Resp BP Pulse Ox 97.8 F 69 12 126/56 H 93 05/28/18 07:00 05/28/18 14:17 05/28/18 07:00 05/28/18 14:17 05/28/18 10:00 Oxygen Flow Rate (L/min) 4 Oxygen Delivery Method Nasal Cannula Weight: 260 lb Body Mass Index (BMI) 48.9 Intake and Output for Last 24 Hours 05/26/18 05/27/18 05/28/18 23:59 23:59 23:59 Intake Total 610 / 610 780 / 780 Output Total 2 / 200 / 200 200 / 200 Balance 608 / 608 -190 / -190 580 / 580 General: Alert, Oriented x3, Cooperative, - - Slow to respond. HEENT: Atraumatic, PERRLA, EOMI, Normocephalic Neck: Supple, No JVD, Negative Carotid Bruits Lungs: Clear to auscultation, No rhonchi, No wheeze, No rales, Diminished - Air entry is diminished in bilateral lung bases Cardiovascular: Regular rate, Regular Rhythm, Normal S1, Normal S2, No murmurs Abdomen: Bowel Sounds Present, Soft, Non Tender, Non-Distended, - - Lynn catheter was removed. Patient is emptying urine spontaneously. Has sensation of bladder filling Extremities: Capillary Refill Less than 3 Seconds, Edema Skin: Ulcer/ Wound - Superficial wound and lower abdominal wall and pelvic wall Musculoskeletal: No Tenderness to Palpation of Joints or Extremities, Arthritic Changes, Muscle Wasting Neurological: Cranial nerves II-XII grossly intact, - - Motor power is improved on the left side of body. Left upper and lower extremity 4+/5. No cerebellar signs Psych/Mental Status: Normal Affect, Appropriate Laboratory Results 05/27/18 16:59: POC Glucose 199 H 05/27/18 21:35: Urine Color Martine, Urine Clarity Cloudy, Urine pH 6.0, Ur Specific [place] 1.020, Urine Protein 500 H, Urine Glucose (UA) 50 H, Urine Ketones Negative, Urine Occult Blood 250 H, Urine Nitrite Negative, Urine Bilirubin Negative, Urine Urobilinogen Normal, Ur Leukocyte Esterase 500 H, Urine RBC 50-100 SEEN, Urine WBC >100 SEEN, Ur Squamous Epith Cells 0-5 SEEN, Urine Bacteria RARE, Urine Mucus 0 SEEN 05/27/18 22:54: POC Glucose 148 H 05/28/18 02:49: POC Glucose 126 H 05/28/18 07:00: POC Glucose 99 05/28/18 11:44: POC Glucose 139 H 05/28/18 16:14: POC Glucose 143 H Current Medications Acetaminophen (Tylenol) 650 mg PO Q6H PRN PRN PRN Reason: Mild Pain (0-3/10)/Headache Hydrocodone Bitart/Acetaminophen ([place] 5mg-325mg) 1 tablet PO Q12H PRN PRN PRN Reason: PAIN Albuterol Sulfate (Ventolin Aerosols) 2.5 mg INHALATION Q2H PRN PRN PRN Reason: SHORTNESS OF BREATH Albuterol/Ipratropium (Duoneb) 3 ml INHALATION Q4H.RT PRN PRN Reason: SHORTNESS OF BREATH Amlodipine Besylate (Norvasc) 10 mg PO DAILY [facility] Last Admin: 05/28/18 11:48 Dose: 10 mg Apixaban (Eliquis) 5 mg PO BID [facility] Last Admin: 05/28/18 11:48 Dose: 5 mg Atorvastatin Calcium (Lipitor) 40 mg PO QHS [facility] Last Admin: 05/27/18 22:57 Dose: 40 mg Bisacodyl (Dulcolax) 10 mg RECTAL .PRN X 1 PRN PRN Reason: Constipation Calamine/Phenol (Calmoseptine Ointment) 1 applic TOPICAL TID [facility]; Protocol Last Admin: 05/28/18 14:18 Dose: 1 applicatio Ciprofloxacin HCl (Cipro) 250 mg PO BID [facility] Last Admin: 05/28/18 11:48 Dose: 250 mg Duloxetine HCl (Cymbalta) 60 mg PO DAILY [facility] Last Admin: 05/28/18 11:48 Dose: 60 mg Furosemide (Lasix) 40 mg PO DAILY [facility] Last Admin: 05/28/18 11:48 Dose: 40 mg Gabapentin (Neurontin) 300 mg PO TIDCM [facility] Last Admin: 05/28/18 16:47 Dose: 300 mg Hydralazine HCl (Apresoline) 50 mg PO TID [facility] Last Admin: 05/28/18 14:17 Dose: 50 mg Insulin Glargine (Lantus (Bkc)) 10 units SC BID [facility] Last Admin: 05/28/18 11:41 Dose: 10 u Insulin Human Lispro (Humalog Kwikpen (Bk)) 0 unit SC ACHS & 3AM [facility]; Protocol Last Admin: 05/28/18 16:40 Dose: Not Given Loperamide HCl (Imodium) 2 mg PO Q4H PRN PRN PRN Reason: Diarrhea Last Admin: 05/23/18 07:59 Dose: 2 mg Magnesium Hydroxide (Milk Of Magnesia) 30 ml PO .PRN X 1 PRN PRN Reason: Constipation Metoprolol Succinate (Toprol Xl (Beta Ángela)) 100 mg PO DAILY [facility] Last Admin: 05/28/18 11:47 Dose: 100 mg Nutritional Formula (Lactose Free) (Glucerna Shake) 120 ml PO 4X/DAY [facility] Last Admin: 05/28/18 16:46 Dose: 120 ml Nystatin (Mycostatin Powder) 1 applic TOPICAL TID [facility]; Protocol Last Admin: 05/28/18 14:20 Dose: 1 applicatio Nystatin (Nystatin) 500,000 unit PO 4X/DAY [facility] Last Admin: 05/28/18 16:47 Dose: 500,000 unit Ondansetron HCl (Zofran Odt) 4 mg PO Q8H PRN PRN Reason: NAUSEA Last Admin: 05/26/18 12:56 Dose: 4 mg Pantoprazole Sodium (Protonix) 20 mg PO DAILY [facility] Last Admin: 05/28/18 11:48 Dose: 20 mg Senna/Docusate Sodium (Senokot-S, Brenda-Colace) 2 tablet PO BID [facility] Last Admin: 05/28/18 11:47 Dose: 2 tablet Sodium Chloride () 5 - 15 ml IV UD PRN PRN Reason: SALINE FLUSH Last Admin: 05/24/18 03:00 Dose: 10 ml Sodium Chloride ([place] Nasal [place]) 1 spray NASAL TID PRN PRN PRN Reason: NASAL DRYNESS Medical Necessity - Tobacco Use Smoking Status: Former smoker Assessment/Plan All Active Problems Acute kidney injury (Acute) Acute renal injury due to circulatory failure (Acute) Acute decompensated heart failure (Acute) 52-year-old with multiple comorbidities including obesity, type II DM, CAD status post stent, hypertension who comes in with progressive confusion after recently being admitted to [facility] for influenza, pneumonia, probable C. difficile. Here in [facility], C. difficile was ruled out 1. Debility secondary to concurrent medical comorbidities, therapy is ongoing, Continue to follow PT/OT recommendations. Patient muscular strength has improved. 2. Acute left soleal DVT, asymptomatic, on Eliquis. 3. Acute metabolic encephalopathy secondary to acute CVA, patient is oriented x1, continue to monitor 4. Acute left posterior, temporal, posterior frontal and parietal lobes CVA, no history of atrial fibrillation, 2d-ECHO shows no shunting, or valvular lesions Continue on aspirin and Plavix, statin. 5. Acute hypoxic respiratory failure secondary to CAP, Acute on chronic CHF, PE ruled out with negative VQ scan Will continue on antibiotics and Lasix, incentive spirometer. Continue to wean off oxygen 6. Acute on chronic diastolic CHF, 65%/pulmonary hypertension, RVSP 43, continue on Lasix 40 mg PO BID, strict I's and O's, CHF protocol, labs in a.m. 7. Recent CAP, recently treated in [facility], on Augmentin, continued breathing treatments. Leukocytosis improving 12.8 thousand. Initially started on IV ceftriaxone and Zithromax on 05/18- and then discharged on Augmentin on 05/20. Total 8 days of antibiotics. 8. CARYN on CKD stage 3: Creatinine is stable between 2.1-2.4., renal ultrasound is negative. Creatinine is elevated from 2.12-2.69. Courtesy [employer] consult reviewed. Lasix discontinued. Avoid nephrotoxic medications. 9. Hypertension, uncontrolled, continue on amlodipine, metoprolol, hydralazine. Patient is off lisinopril on account of CARYN on CKD 10. Skin tears of the anterior abdominal wall, severe candidal intertrigo of the abdominal wall, wound nurse consulted, on nystatin, topical wound preparation 11. Type 2 DM, blood sugars are controlled, continue on Lantus, insulin sliding scale with accucheks 12. CAD status post stent, on aspirin, statin, metoprolol, lisinopril 13. Morbid obesity, BMI 48.9 14. DVT PPx- Apixaban 15. Pyuria with suspicion of UTI: pyuria was present before Lynn catheterization therefore does not meet definition of CAUTI: On Cipro. Urine culture is ordered. Prelim urine culture shows yeast-like organism 11,000-25,000 therefore most probably contamination. Patient has Lynn catheter, put in ER on 05/18/2017. Discontinue Lynn catheter. Bladder scan every 4 hours and if PVR is more than 200 mL, intermittent catheterization. Laboratory Results 05/27/18 16:59: POC Glucose 199 H 05/27/18 21:35: Urine Color Martine, Urine Clarity Cloudy, Urine pH 6.0, Ur Specific [place] 1.020, Urine Protein 500 H, Urine Glucose (UA) 50 H, Urine Ketones Negative, Urine Occult Blood 250 H, Urine Nitrite Negative, Urine Bilirubin Negative, Urine Urobilinogen Normal, Ur Leukocyte Esterase 500 H, Urine RBC 50-100 SEEN, Urine WBC >100 SEEN, Ur Squamous Epith Cells 0-5 SEEN, Urine Bacteria RARE, Urine Mucus 0 SEEN 05/27/18 22:54: POC Glucose 148 H 05/28/18 02:49: POC Glucose 126 H 05/28/18 07:00: POC Glucose 99 05/28/18 11:44: POC Glucose 139 H 05/28/18 16:14: POC Glucose 143 H Code Visit Inpatient E&M: 18578 Subs Hosp L2
[2018-05-28] MEDS: Atorvastatin Calcium 40 MG Tablet PO (21:59)
[2018-05-28] MEDS: Insulin Lispro 100 UNIT/ML INSULN.PEN SC (22:09)
[2018-05-28 22:25] LABS: Bedside Glucose 200 mg/dL (70-110)
[2018-05-29] VITALS (7 sets, daily range): BP systolic 122–134; BP diastolic 68–75; PULSE 72–80; RESP 16–18; TEMP 36.6–37.1; O2SAT 90–95; BMI 48.9
[2018-05-29 02:31] LABS: Bedside Glucose 125 mg/dL (70-110)
--- NOTE | 2018-05-29 04:33 | NURSING ---
Reviewed and agree with LPNs fims and handoff
[2018-05-29] MEDS: Menthol/Lanolin/Calamine/Znox 113 GM Tube 1 APPLIC TOPICAL ×3 (05:55→19:42)
[2018-05-29] MEDS: hydrALAZINE 50 MG Tablet PO ×3 (05:55→19:41)
[2018-05-29] MEDS: Nystatin Powder 15gm Bottle 1 APPLIC TOPICAL ×3 (05:56→19:44)
[2018-05-29 06:25] LABS: Bedside Glucose 120 mg/dL (70-110)
[2018-05-29 07:25] LABS: Anion Gap 8 (5-15); BUN 56 mg/dL (7-18); BUN/Creat Ratio 13.9 RATIO (10-20); Calcium,Total 7.5 mg/dL (8.5-10.1); Chloride 99 mmol/L (98-107); Creatinine, Serum 4.02 mg/dL (0.55-1.02); EST Glomerular Filtration Rate 12 mL/min (>60); Est Glom Filt Rate - Afr Amer 15 mL/min (>60); Estimated Creatinine Clearance 12.35 ml/min; Glucose 111 mg/dL (74-106); Potassium 4.5 mmol/L (3.5-5.1); Sodium Level 136 mmol/L (136-145)
[2018-05-29] MEDS: Metoprolol(XL)Succ 100 MG Tablet PO (08:30)
[2018-05-29] MEDS: APIXABAN 5 MG TABLET PO ×2 (08:30→19:42)
[2018-05-29] MEDS: DULoxetine Hcl 60 MG Capsule PO (08:30)
[2018-05-29] MEDS: Ciprofloxacin 250 MG Tablet PO (08:31)
[2018-05-29] MEDS: Pantoprazole Sodium 20 MG Tablet PO (08:31)
[2018-05-29] MEDS: Gabapentin 300 MG Capsule PO (08:31)
[2018-05-29] MEDS: NYSTATIN 500,000 UNIT/5 ML UDC 500000 UNIT PO ×4 (08:39→19:45)
--- NOTE | 2018-05-29 10:35 | NURSING ---
Addendum entered by Beckie Wu 05/29/18 10:42: Patient only slight lethargic at this time, ate 100% of breakfast at this time and watching tv. Will monitor. VS stable. Original Note: Dr Dunn aware of labs this AM and of patient's lethargy. New order received. This nurse attempted IV placement x2 and unsuccessful. Nursing shipping track supervisor made aware. Patient responds to vocal stimulus and no distress noted.
[2018-05-29] MEDS: Senna/Docusate Sodium 1 Tablet 2 TABLET PO ×2 (10:39→19:45)
[2018-05-29] MEDS: amLODIPine 10 MG Tablet PO (10:39)
[2018-05-29 10:56] LABS: Bedside Glucose 129 mg/dL (70-110)
[2018-05-29] MEDS: 0.9% Normal Saline 1,000 ML 100 ML IV (11:05)
--- NOTE | 2018-05-29 11:22 | NURSING ---
Son here and patient agreed for son to take her drivers license and insurance card. Patient still has credit card locked up in the med room of the hospital.
--- NOTE | 2018-05-29 12:00 | NURSING ---
Dr. Darby, nephrology, aware of patient's current labs per Dr. Dunn request.
[2018-05-29] MEDS: Gabapentin 100 MG Capsule PO ×2 (12:16→17:44)
[2018-05-29] MEDS: Glucerna Shake 120 ML LIQUID PO ×3 (12:57→19:43)
--- NOTE | 2018-05-29 17:32 | PCM.PN.REN ---
Subjective: Patient said her breathing stable. No nausea no vomiting. She states she still making urine. No chest pain - Physical Exam General: Alert HEENT: Atraumatic Oral: Moist Mucosa Neck: Supple, No JVD Lungs: - - Coarse breathing sounds bilaterally Cardiovascular: Regular rate, Regular Rhythm, Normal S1, Normal S2 Abdomen: Bowel Sounds Present, Soft, Non Tender, Non-Distended Extremities: No clubbing, No cyanosis, No edema Skin: No rashes Musculoskeletal: No Tenderness to Palpation of Joints or Extremities Lymphatic: No Cervical, Supraclavicular, or Inguinal Adenopathy Neurological: Cranial nerves II-XII grossly intact, Neuro grossly intact Psych/Mental Status: Normal Affect Vital Signs Temp Pulse Resp BP Pulse Ox 98.8 F 80 16 123/68 H 91 05/29/18 07:00 05/29/18 12:57 05/29/18 07:00 05/29/18 07:00 05/29/18 08:30 Oxygen Flow Rate (L/min) 2 Oxygen Delivery Method Nasal Cannula Weight: 117.5 kg Body Mass Index (BMI) 48.9 Intake and Output for Last 24 Hours 05/27/18 05/28/18 05/29/18 23:59 23:59 23:59 Intake Total 10 / 10 1110 / 1110 1390 / 1390 Output Total 200 / 200 200 / 200 400 / 400 Balance -190 / -190 910 / 910 990 / 990 Microbiology Past 72 Hours 05/27/18 21:35 Urine Culture - Preliminary Urine, Catheterized Yeast Like Organism Laboratory Tests Past 24 Hrs 05/29/18 06:20 Sodium 136 Potassium 4.5 Chloride 99 Carbon Dioxide 29.0 Anion Gap 8 BUN 56 H Creatinine 4.02 H Estim Creat Clear Calc 12.35 Est GFR (MDRD) Af Amer 15 L Est GFR (MDRD) Non-Af 12 L BUN/Creatinine Ratio 13.9 Glucose 111 H Calcium 7.5 L POC Glucose 05/29/18 05/29/18 05/29/18 10:46 06:16 02:27 POC Glucose 129 H 120 H 125 H 05/28/18 22:05 POC Glucose 200 H Medical Necessity - Tobacco Use Smoking Status: Former smoker Assessment/Plan All Active Problems Acute kidney injury (Acute) Acute renal injury due to circulatory failure (Acute) Acute decompensated heart failure (Acute) CARYN on CKD stage 3 .Baseline creatinine is around 1.8. CKD is most probably diabetic nephropathy. Acute kidney injury might be related to prerenal from dehydration. I agree with stopping Lasix and IV fluids 75 cc/h normal saline. Check renal function in a.m. UA is positive for blood and protein, I will check C3/C4/KEY/ANCA along with hepatitis panel. Urine culture is negative. Cipro was stopped. No indication for hemodialysis. Please avoid nephrotoxic. Avoid TAYLOR and ARB Renal team will continue to follow. Please call with any question or concern. Mayra Parekh MD [phone]
[2018-05-29 17:41] LABS: Bedside Glucose 218 mg/dL (70-110)
[2018-05-29] MEDS: Insulin Lispro 100 UNIT/ML INSULN.PEN SC ×2 (17:44→22:17)
[2018-05-29] MEDS: Atorvastatin Calcium 40 MG Tablet PO (19:44)
[2018-05-29 21:15] LABS: Bedside Glucose 228 mg/dL (70-110)
[2018-05-30] VITALS (9 sets, daily range): BP systolic 120–146; BP diastolic 61–78; PULSE 64–72; RESP 17–18; TEMP 36.5–36.7; O2SAT 92–95; BMI 48.9
[2018-05-30 02:51] LABS: Bedside Glucose 204 mg/dL (70-110)
[2018-05-30] MEDS: Insulin Lispro 100 UNIT/ML INSULN.PEN SC ×5 (03:02→20:10)
[2018-05-30] MEDS: hydrALAZINE 50 MG Tablet PO ×3 (05:40→20:15)
[2018-05-30] MEDS: Menthol/Lanolin/Calamine/Znox 113 GM Tube 1 APPLIC TOPICAL ×3 (05:42→20:12)
[2018-05-30] MEDS: Nystatin Powder 15gm Bottle 1 APPLIC TOPICAL ×3 (05:42→20:08)
[2018-05-30 06:25] LABS: Bedside Glucose 179 mg/dL (70-110)
[2018-05-30 06:56] LABS: Anion Gap 7 (5-15); BUN 56 mg/dL (7-18); BUN/Creat Ratio 13.7 RATIO (10-20); Calcium,Total 7.3 mg/dL (8.5-10.1); Chloride 101 mmol/L (98-107); Creatinine, Serum 4.08 mg/dL (0.55-1.02); EST Glomerular Filtration Rate 12 mL/min (>60); Est Glom Filt Rate - Afr Amer 15 mL/min (>60); Estimated Creatinine Clearance 12.17 ml/min; Glucose 171 mg/dL (74-106); Potassium 4.4 mmol/L (3.5-5.1); Sodium Level 134 mmol/L (136-145)
[2018-05-30] MEDS: Metoprolol(XL)Succ 100 MG Tablet PO (10:07)
[2018-05-30] MEDS: NYSTATIN 500,000 UNIT/5 ML UDC 500000 UNIT PO ×4 (10:08→20:08)
[2018-05-30] MEDS: amLODIPine 10 MG Tablet PO (10:08)
[2018-05-30] MEDS: Gabapentin 100 MG Capsule PO ×3 (10:08→18:34)
[2018-05-30] MEDS: APIXABAN 5 MG TABLET PO ×2 (10:08→20:12)
[2018-05-30] MEDS: DULoxetine Hcl 60 MG Capsule PO (10:08)
[2018-05-30] MEDS: Senna/Docusate Sodium 1 Tablet 2 TABLET PO ×2 (10:08→20:07)
[2018-05-30] MEDS: Pantoprazole Sodium 20 MG Tablet PO (10:08)
[2018-05-30] MEDS: Glucerna Shake 120 ML LIQUID PO ×4 (10:09→20:12)
[2018-05-30] MEDS: Fluconazole 100 MG Tablet 200 MG PO (12:13)
[2018-05-30 12:30] LABS: Bedside Glucose 234 mg/dL (70-110)
--- NOTE | 2018-05-30 16:35 | PN.RENAL_ITS ---
Subjective: Patient is doing well. She said her breathing is stable. She is making urine. No nausea no vomiting. Family member at bedside - Physical Exam General: Alert, Oriented x3 HEENT: Atraumatic Oral: Moist Mucosa Neck: Supple, No JVD Lungs: - - Decreased breath sounds bilaterally Cardiovascular: Regular rate, Regular Rhythm, Normal S1, Normal S2 Abdomen: Bowel Sounds Present, Soft, Non Tender Extremities: No clubbing, No cyanosis, No edema Musculoskeletal: No Tenderness to Palpation of Joints or Extremities Lymphatic: No Cervical, Supraclavicular, or Inguinal Adenopathy Neurological: Cranial nerves II-XII grossly intact, Neuro grossly intact Psych/Mental Status: Normal Affect Vital Signs Temp Pulse Resp BP Pulse Ox 98.0 F 68 18 136/64 H 92 05/30/18 07:38 05/30/18 14:47 05/30/18 07:38 05/30/18 14:47 05/30/18 15:06 Oxygen Flow Rate (L/min) 2 Oxygen Delivery Method Nasal Cannula Weight: 116.8 kg Body Mass Index (BMI) 48.9 Intake and Output for Last 24 Hours 05/28/18 05/29/18 05/30/18 23:59 23:59 23:59 Intake Total 1110 / 1110 1910 / 1910 540 / 540 Output Total 200 / 200 700 / 700 300 / 300 Balance 910 / 910 1210 / 1210 240 / 240 Microbiology Past 72 Hours 05/27/18 21:35 Urine Culture - Final Urine, Catheterized Kayla albicans Laboratory Tests Past 24 Hrs 05/29/18 05/29/18 05/30/18 17:25 17:25 06:05 Sodium 134 L Potassium 4.4 Chloride 101 Carbon Dioxide 26.0 Anion Gap 7 BUN 56 H Creatinine 4.08 H Estim Creat Clear Calc 12.17 Est GFR (MDRD) Af Amer 15 L Est GFR (MDRD) Non-Af 12 L BUN/Creatinine Ratio 13.7 Glucose 171 H Calcium 7.3 L KEY Screen Pending c-ANCA Antibody Pending p-ANCA Antibody Pending RASHEED-1 Antibody Pending SS-A/Ro IgG Antibody Pending SS-B/La IgG Antibody Pending Sm (Patel) Antibody Pending POWER DIGGER OPERATOR Antibody Pending Scl-70 Scleroderma Ab Pending Double Strand DNA Ab Pending Centromere B Antibody Pending Complement C3 Pending Complement C4 Pending Hep Bs Antigen Pending Hepatitis C Ab (EIA) Pending POC Glucose 05/30/18 05/30/18 05/30/18 12:10 06:16 02:41 POC Glucose 234 H 179 H 204 H 05/29/18 05/29/18 21:04 17:36 POC Glucose 228 H 218 H Medical Necessity - Tobacco Use Smoking Status: Former smoker Assessment/Plan All Active Problems Acute kidney injury (Acute) Acute renal injury due to circulatory failure (Acute) Acute decompensated heart failure (Acute) CARYN on CKD stage 3 .Baseline creatinine is around 1.8. CKD is most probably di abetic nephropathy. Acute kidney injury might be related to prerenal from dehydration. Lasix was stopped yesterday and patient was given 1 L of normal saline. Creatinine stable at 4.0 mg a deciliter. I will start the patient on normal saline at 100 mL/h UA is positive for blood and protein, I will check C3/C4/KEY/ANCA along with hepatitis panel. Later labs are pending Urine culture grew Kayla. Antifungal medication as per the primary service. No indication for hemodialysis. Blood pressure is well controlled. Please avoid TAYLOR inhibitor and ARB Please avoid nephrotoxic like IV contrast Renal team will continue to follow. Please call with any question or concern. Mayra Parekh MD [phone]
--- NOTE | 2018-05-30 17:12 | PCM.PN.HOSP ---
Subjective: Patient has gradual improvement in strength in left upper and lower extremity. On oxygen. No acute shortness of breath. Patient is urinating spontaneously and can feel bladder filling. Seen by casing cleaner. On IV fluid normal saline. Vitals/I&O's: Vital Signs Temp Pulse Resp BP Pulse Ox 98.0 F 68 18 136/64 H 92 05/30/18 07:38 05/30/18 14:47 05/30/18 07:38 05/30/18 14:47 05/30/18 15:06 Oxygen Flow Rate (L/min) 2 Oxygen Delivery Method Nasal Cannula Weight: 257 lb 7.999 oz Body Mass Index (BMI) 48.9 Intake and Output for Last 24 Hours 05/28/18 05/29/18 05/30/18 23:59 23:59 23:59 Intake Total 1110 / 1110 1910 / 1910 540 / 540 Output Total 200 / 200 700 / 700 300 / 300 Balance 910 / 910 1210 / 1210 240 / 240 General: Alert, Oriented x3, Cooperative HEENT: Atraumatic, PERRLA, EOMI, Normocephalic Neck: Supple, No JVD, Negative Carotid Bruits Lungs: Clear to auscultation, No rhonchi, No wheeze, No rales, Diminished - Air entry is diminished bilaterally Cardiovascular: Regular rate, Regular Rhythm, Normal S1, Normal S2, No murmurs Abdomen: Bowel Sounds Present, Soft, Non Tender, Non-Distended Extremities: No edema, Capillary Refill Less than 3 Seconds Skin: No rashes, No breakdown Musculoskeletal: No Tenderness to Palpation of Joints or Extremities, Arthritic Changes, Muscle Wasting Neurological: Cranial nerves II-XII grossly intact, - - Motor power is improved on the left side of body. Left upper and lower extremity 4+/5. No cerebellar signs Psych/Mental Status: Normal Affect, Appropriate Microbiology Past 72 Hours 05/27/18 21:35 Urine, Catheterized Urine Culture - Final Kayla albicans Laboratory Results 05/29/18 17:25: c-ANCA Antibody Pending, p-ANCA Antibody Pending, Complement C3 Pending, Complement C4 Pending, Hep Bs Antigen Pending, Hepatitis C Ab (EIA) Pending 05/29/18 17:25: KEY Screen Pending, RASHEED-1 Antibody Pending, SS-A/Ro IgG Antibody Pending, SS-B/La IgG Antibody Pending, Sm (Patel) Antibody Pending, [place]AND [employer]AM [employer]EDGE Antibody Pending, Scl-70 Scleroderma Ab Pending, Double Strand DNA Ab Pending, Centromere B Antibody Pending 05/29/18 17:36: POC Glucose 218 H 05/29/18 21:04: POC Glucose 228 H 05/30/18 02:41: POC Glucose 204 H 05/30/18 06:05: Sodium 134 L, Potassium 4.4, Chloride 101, Carbon Dioxide 26.0, Anion Gap 7, BUN 56 H, Creatinine 4.08 H, Estim Creat Clear Calc 12.17, Est GFR (MDRD) Af Amer 15 L, Est GFR (MDRD) Non-Af 12 L, BUN/Creatinine Ratio 13.7, Glucose 171 H, Calcium 7.3 L 05/30/18 06:16: POC Glucose 179 H 05/30/18 12:10: POC Glucose 234 H Current Medications Acetaminophen (Tylenol) 650 mg PO Q6H PRN PRN PRN Reason: Mild Pain (0-3/10)/Headache Hydrocodone Bitart/Acetaminophen ([place] 5mg-325mg) 1 tablet PO Q12H PRN PRN PRN Reason: PAIN Albuterol Sulfate (Ventolin Aerosols) 2.5 mg INHALATION Q2H PRN PRN PRN Reason: SHORTNESS OF BREATH Albuterol/Ipratropium (Duoneb) 3 ml INHALATION Q4H.RT PRN PRN Reason: SHORTNESS OF BREATH Amlodipine Besylate (Norvasc) 10 mg PO DAILY [facility] Last Admin: 05/30/18 10:08 Dose: 10 mg Apixaban (Eliquis) 5 mg PO BID [facility] Last Admin: 05/30/18 10:08 Dose: 5 mg Atorvastatin Calcium (Lipitor) 40 mg PO QHS [facility] Last Admin: 05/29/18 19:44 Dose: 40 mg Bisacodyl (Dulcolax) 10 mg RECTAL .PRN X 1 PRN PRN Reason: Constipation Calamine/Phenol (Calmoseptine Ointment) 1 applic TOPICAL TID [facility]; Protocol Last Admin: 05/30/18 14:48 Dose: 1 applicatio Duloxetine HCl (Cymbalta) 60 mg PO DAILY [facility] Last Admin: 05/30/18 10:08 Dose: 60 mg Gabapentin (Neurontin) 100 mg PO TIDCM [facility] Last Admin: 05/30/18 12:14 Dose: 100 mg Hydralazine HCl (Apresoline) 50 mg PO TID [facility] Last Admin: 05/30/18 14:47 Dose: 50 mg Sodium Chloride () 1,000 mls @ 100 mls/hr IV .Q10H [facility] Insulin Glargine (Lantus (Bk)) 10 units SC BID [facility] Last Admin: 05/30/18 10:08 Dose: 10 u Insulin Human Lispro (Humalog Kwikpen (Bk)) 0 unit SC ACHS & 3AM [facility]; Protocol Last Admin: 05/30/18 12:14 Dose: 4 u Loperamide HCl (Imodium) 2 mg PO Q4H PRN PRN PRN Reason: Diarrhea Last Admin: 05/23/18 07:59 Dose: 2 mg Metoprolol Succinate (Toprol Xl (Beta Ángela)) 100 mg PO DAILY [facility] Last Admin: 05/30/18 10:07 Dose: 100 mg Nutritional Formula (Lactose Free) (Glucerna Shake) 120 ml PO 4X/DAY [facility] Last Admin: 05/30/18 14:47 Dose: 120 ml Nystatin (Mycostatin Powder) 1 applic TOPICAL TID [facility]; Protocol Last Admin: 05/30/18 14:47 Dose: 1 applicatio Nystatin (Nystatin) 500,000 unit PO 4X/DAY [facility] Last Admin: 05/30/18 14:47 Dose: 500,000 unit Ondansetron HCl (Zofran Odt) 4 mg PO Q8H PRN PRN Reason: NAUSEA Last Admin: 05/26/18 12:56 Dose: 4 mg Pantoprazole Sodium (Protonix) 20 mg PO DAILY [facility] Last Admin: 05/30/18 10:08 Dose: 20 mg Senna/Docusate Sodium (Senokot-S, Brenda-Colace) 2 tablet PO BID [facility] Last Admin: 05/30/18 10:08 Dose: 2 tablet Sodium Chloride () 5 - 15 ml IV UD PRN PRN Reason: SALINE FLUSH Last Admin: 05/24/18 03:00 Dose: 10 ml Sodium Chloride ([place] Nasal [place]) 1 spray NASAL TID PRN PRN PRN Reason: NASAL DRYNESS Medical Necessity - Tobacco Use Smoking Status: Former smoker Assessment/Plan All Active Problems Acute kidney injury (Acute) Acute renal injury due to circulatory failure (Acute) Acute decompensated heart failure (Acute) 52-year-old with multiple comorbidities including obesity, type II DM, CAD status post stent, hypertension who comes in with progressive confusion after recently being admitted to [facility] for influenza, pneumonia, probable C. difficile. Here in [facility], C. difficile was ruled out 1. Debility secondary to concurrent medical comorbidities, therapy is ongoing, Continue to follow PT/OT recommendations. Patient muscular strength has improved. 2. Acute left soleal DVT, asymptomatic, on Eliquis. 3. Acute metabolic encephalopathy secondary to acute CVA, patient is oriented x1, continue to monitor 4. Acute left posterior, temporal, posterior frontal and parietal lobes CVA, no history of atrial fibrillation, 2d-ECHO shows no shunting, or valvular lesions Continue on aspirin and Plavix, statin. 5. Acute hypoxic respiratory failure secondary to CAP, Acute on chronic CHF, PE ruled out with negative VQ scan Will continue on antibiotics and Lasix, incentive spirometer. Continue to wean off oxygen 6. Acute on chronic diastolic CHF, 65%/pulmonary hypertension, RVSP 43, continue on Lasix 40 mg PO BID, strict I's and O's, CHF protocol, labs in a.m. 7. Recent CAP, recently treated in [facility], on Augmentin, continued breathing treatments. Leukocytosis improving 12.8 thousand. Initially started on IV ceftriaxone and Zithromax on 05/18- and then discharged on Augmentin on 05/20. Total 8 days of antibiotics. Patient completed antibiotic Augmentin. 8. CARYN on CKD stage 3: Exact etiology unclear, most probably prerenal or secondary to medications. Creatinine is stable between 2.1-2.4., renal ultrasound is negative. Creatinine is elevated from 2.12-2.69. Director Of Midwifery/Staff Midwife consult reviewed. Lasix discontinued. Avoid nephrotoxic medications. On IV fluid normal saline. 9. Hypertension, uncontrolled, continue on amlodipine, metoprolol, hydralazine. Patient is off lisinopril on account of CARYN on CKD 10. Skin tears of the anterior abdominal wall, severe candidal intertrigo of the abdominal wall, wound nurse consulted, on nystatin, topical wound preparation 11. Type 2 DM, blood sugars are controlled, continue on Lantus, insulin sliding scale with accucheks 12. CAD status post stent, on aspirin, statin, metoprolol, lisinopril 13. Morbid obesity, BMI 48.9 14. DVT PPx- Apixaban 15. UTI ruled out.: Urine culture reported Kayla albicans 11,000-25,000 allergies; mainly contamination from urethra/neighboring structure. 1 dose of Diflucan 200 mg given. No need for antibiotic. Patient has Lynn catheter, put in ER on 05/18/2017. Lynn catheter was discontinued on 05/25/2018. Bladder scan every 4 hours and if PVR is more than 200 mL, intermittent catheterization. Laboratory Results 05/27/18 16:59: POC Glucose 199 H 05/27/18 21:35: Urine Color Martine, Urine Clarity Cloudy, Urine pH 6.0, Ur Specific [place] 1.020, Urine Protein 500 H, Urine Glucose (UA) 50 H, Urine Ketones Negative, Urine Occult Blood 250 H, Urine Nitrite Negative, Urine Bilirubin Negative, Urine Urobilinogen Normal, Ur Leukocyte Esterase 500 H, Urine RBC 50-100 SEEN, Urine WBC >100 SEEN, Ur Squamous Epith Cells 0-5 SEEN, Urine Bacteria RARE, Urine Mucus 0 SEEN 05/27/18 22:54: POC Glucose 148 H 05/28/18 02:49: POC Glucose 126 H 05/28/18 07:00: POC Glucose 99 05/28/18 11:44: POC Glucose 139 H 05/28/18 16:14: POC Glucose 143 H Code Visit Inpatient E&M: [id number] Subs Hosp L2
--- NOTE | 2018-05-30 17:18 | PN_ITS ---
Subjective: Patient has gradual improvement in strength in left upper and lower extremity. On oxygen. No acute shortness of breath. Patient is urinating spontaneously and can feel bladder filling. Seen by screenplay writer. On IV fluid normal saline. Vitals/I&O's: Vital Signs Temp Pulse Resp BP Pulse Ox 98.0 F 68 18 136/64 H 92 05/30/18 07:38 05/30/18 14:47 05/30/18 07:38 05/30/18 14:47 05/30/18 15:06 Oxygen Flow Rate (L/min) 2 Oxygen Delivery Method Nasal Cannula Weight: 257 lb 7.999 oz Body Mass Index (BMI) 48.9 Intake and Output for Last 24 Hours 05/28/18 05/29/18 05/30/18 23:59 23:59 23:59 Intake Total 1110 / 1110 1910 / 1910 540 / 540 Output Total 200 / 200 700 / 700 300 / 300 Balance 910 / 910 1210 / 1210 240 / 240 General: Alert, Oriented x3, Cooperative HEENT: Atraumatic, PERRLA, EOMI, Normocephalic Neck: Supple, No JVD, Negative Carotid Bruits Lungs: Clear to auscultation, No rhonchi, No wheeze, No rales, Diminished - Air entry is diminished bilaterally Cardiovascular: Regular rate, Regular Rhythm, Normal S1, Normal S2, No murmurs Abdomen: Bowel Sounds Present, Soft, Non Tender, Non-Distended Extremities: No edema, Capillary Refill Less than 3 Seconds Skin: No rashes, No breakdown Musculoskeletal: No Tenderness to Palpation of Joints or Extremities, Arthritic Changes, Muscle Wasting Neurological: Cranial nerves II-XII grossly intact, - - Motor power is improved on the left side of body. Left upper and lower extremity 4+/5. No cerebellar signs Psych/Mental Status: Normal Affect, Appropriate Microbiology Past 72 Hours 05/27/18 21:35 Urine, Catheterized Urine Culture - Final Kayla albicans Laboratory Results 05/29/18 17:25: c-ANCA Antibody Pending, p-ANCA Antibody Pending, Complement C3 Pending, Complement C4 Pending, Hep Bs Antigen Pending, Hepatitis C Ab (EIA) Pending 05/29/18 17:25: KEY Screen Pending, RASHEED-1 Antibody Pending, SS-A/Ro IgG Antibody Pending, SS-B/La IgG Antibody Pending, Sm (Patel) Antibody Pending, KENO CLERK Antibody Pending, Scl-70 Scleroderma Ab Pending, Double Strand DNA Ab Pending, Centromere B Antibody Pending 05/29/18 17:36: POC Glucose 218 H 05/29/18 21:04: POC Glucose 228 H 05/30/18 02:41: POC Glucose 204 H 05/30/18 06:05: Sodium 134 L, Potassium 4.4, Chloride 101, Carbon Dioxide 26.0, Anion Gap 7, BUN 56 H, Creatinine 4.08 H, Estim Creat Clear Calc 12.17, Est GFR (MDRD) Af Amer 15 L, Est GFR (MDRD) Non-Af 12 L, BUN/Creatinine Ratio 13.7, Glucose 171 H, Calcium 7.3 L 05/30/18 06:16: POC Glucose 179 H 05/30/18 12:10: POC Glucose 234 H Current Medications Acetaminophen (Tylenol) 650 mg PO Q6H PRN PRN PRN Reason: Mild Pain (0-3/10)/Headache Hydrocodone Bitart/Acetaminophen ([place] 5mg-325mg) 1 tablet PO Q12H PRN PRN PRN Reason: PAIN Albuterol Sulfate (Ventolin Aerosols) 2.5 mg INHALATION Q2H PRN PRN PRN Reason: SHORTNESS OF BREATH Albuterol/Ipratropium (Duoneb) 3 ml INHALATION Q4H.RT PRN PRN Reason: SHORTNESS OF BREATH Amlodipine Besylate (Norvasc) 10 mg PO DAILY [facility] Last Admin: 05/30/18 10:08 Dose: 10 mg Apixaban (Eliquis) 5 mg PO BID [facility] Last Admin: 05/30/18 10:08 Dose: 5 mg Atorvastatin Calcium (Lipitor) 40 mg PO QHS [facility] Last Admin: 05/29/18 19:44 Dose: 40 mg Bisacodyl (Dulcolax) 10 mg RECTAL .PRN X 1 PRN PRN Reason: Constipation Calamine/Phenol (Calmoseptine Ointment) 1 applic TOPICAL TID [facility]; Protocol Last Admin: 05/30/18 14:48 Dose: 1 applicatio Duloxetine HCl (Cymbalta) 60 mg PO DAILY [facility] Last Admin: 05/30/18 10:08 Dose: 60 mg Gabapentin (Neurontin) 100 mg PO TIDCM [facility] Last Admin: 05/30/18 12:14 Dose: 100 mg Hydralazine HCl (Apresoline) 50 mg PO TID [facility] Last Admin: 05/30/18 14:47 Dose: 50 mg Sodium Chloride () 1,000 mls @ 100 mls/hr IV .Q10H [facility] Insulin Glargine (Lantus (Bk)) 10 units SC BID [facility] Last Admin: 05/30/18 10:08 Dose: 10 u Insulin Human Lispro (Humalog Kwikpen (Bk)) 0 unit SC ACHS & 3AM [facility]; Protocol Last Admin: 05/30/18 12:14 Dose: 4 u Loperamide HCl (Imodium) 2 mg PO Q4H PRN PRN PRN Reason: Diarrhea Last Admin: 05/23/18 07:59 Dose: 2 mg Metoprolol Succinate (Toprol Xl (Beta Ángela)) 100 mg PO DAILY [facility] Last Admin: 05/30/18 10:07 Dose: 100 mg Nutritional Formula (Lactose Free) (Glucerna Shake) 120 ml PO 4X/DAY [facility] Last Admin: 05/30/18 14:47 Dose: 120 ml Nystatin (Mycostatin Powder) 1 applic TOPICAL TID [facility]; Protocol Last Admin: 05/30/18 14:47 Dose: 1 applicatio Nystatin (Nystatin) 500,000 unit PO 4X/DAY [facility] Last Admin: 05/30/18 14:47 Dose: 500,000 unit Ondansetron HCl (Zofran Odt) 4 mg PO Q8H PRN PRN Reason: NAUSEA Last Admin: 05/26/18 12:56 Dose: 4 mg Pantoprazole Sodium (Protonix) 20 mg PO DAILY [facility] Last Admin: 05/30/18 10:08 Dose: 20 mg Senna/Docusate Sodium (Senokot-S, Brenda-Colace) 2 tablet PO BID [facility] Last Admin: 05/30/18 10:08 Dose: 2 tablet Sodium Chloride () 5 - 15 ml IV UD PRN PRN Reason: SALINE FLUSH Last Admin: 05/24/18 03:00 Dose: 10 ml Sodium Chloride (Blue Nasal [place]) 1 spray NASAL TID PRN PRN PRN Reason: NASAL DRYNESS Medical Necessity - Tobacco Use Smoking Status: Former smoker Assessment/Plan All Active Problems Acute kidney injury (Acute) Acute renal injury due to circulatory failure (Acute) Acute decompensated heart failure (Acute) 52-year-old with multiple comorbidities including obesity, type II DM, CAD status post stent, hypertension who comes in with progressive confusion after recently being admitted to [facility] for influenza, pneumonia, probable C. difficile. Here in [facility], C. difficile was ruled out 1. Debility secondary to concurrent medical comorbidities, therapy is ongoing, Continue to follow PT/OT recommendations. Patient muscular strength has improved. 2. Acute left soleal DVT, asymptomatic, on Eliquis. 3. Acute metabolic encephalopathy secondary to acute CVA, patient is oriented x1, continue to monitor 4. Acute left posterior, temporal, posterior frontal and parietal lobes CVA, no history of atrial fibrillation, 2d-ECHO shows no shunting, or valvular lesions Continue on aspirin and Plavix, statin. 5. Acute hypoxic respiratory failure secondary to CAP, Acute on chronic CHF, PE ruled out with negative VQ scan Will continue on antibiotics and Lasix, incentive spirometer. Continue to wean off oxygen 6. Acute on chronic diastolic CHF, 65%/pulmonary hypertension, RVSP 43, continue on Lasix 40 mg PO BID, strict I's and O's, CHF protocol, labs in a.m. 7. Recent CAP, recently treated in [facility], on Augmentin, continued breathing treatments. Leukocytosis improving 12.8 thousand. Initially started on IV ceftriaxone and Zithromax on 05/18- and then discharged on Augmentin on 05/20. Total 8 days of antibiotics. Patient completed antibiotic Augmentin. 8. CARYN on CKD stage 3: Exact etiology unclear, most probably prerenal or secondary to medications. Creatinine is stable between 2.1-2.4., renal ultrasound is negative. Creatinine is elevated from 2.12-2.69. Men'S Swim Coach consult reviewed. Lasix discontinued. Avoid nephrotoxic medications. On IV fl uid normal saline. 9. Hypertension, uncontrolled, continue on amlodipine, metoprolol, hydralazine. Patient is off lisinopril on account of CARYN on CKD 10. Skin tears of the anterior abdominal wall, severe candidal intertrigo of the abdominal wall, wound nurse consulted, on nystatin, topical wound preparation 11. Type 2 DM, blood sugars are controlled, continue on Lantus, insulin sliding scale with accucheks 12. CAD status post stent, on aspirin, statin, metoprolol, lisinopril 13. Morbid obesity, BMI 48.9 14. DVT PPx- Apixaban 15. UTI ruled out.: Urine culture reported Kayla albicans 11,000-25,000 allergies; mainly contamination from urethra/neighboring structure. 1 dose of Diflucan 200 mg given. No need for antibiotic. Patient has Lynn catheter, put in ER on 05/18/2017. Lynn catheter was discontinued on 05/25/2018. Bladder scan every 4 hours and if PVR is more than 200 mL, intermittent catheterization. Laboratory Results 05/27/18 16:59: POC Glucose 199 H 05/27/18 21:35: Urine Color Martine, Urine Clarity Cloudy, Urine pH 6.0, Ur Specific [place] 1.020, Urine Protein 500 H, Urine Glucose (UA) 50 H, Urine Ketones Negative, Urine Occult Blood 250 H, Urine Nitrite Negative, Urine Bilirubin Negative, Urine Urobilinogen Normal, Ur Leukocyte Esterase 500 H, Urine RBC 50-100 SEEN, Urine WBC >100 SEEN, Ur Squamous Epith Cells 0-5 SEEN, Urine Bacteria RARE, Urine Mucus 0 SEEN 05/27/18 22:54: POC Glucose 148 H 05/28/18 02:49: POC Glucose 126 H 05/28/18 07:00: POC Glucose 99 05/28/18 11:44: POC Glucose 139 H 05/28/18 16:14: POC Glucose 143 H Code Visit Inpatient E&M: [id number] Subs Hosp L2
[2018-05-30 17:55] LABS: Bedside Glucose 333 mg/dL (70-110)
[2018-05-30] MEDS: 0.9% Normal Saline 1,000 ML 100 ML IV (18:50)
[2018-05-30] MEDS: Atorvastatin Calcium 40 MG Tablet PO (20:09)
[2018-05-30 20:31] LABS: Bedside Glucose 265 mg/dL (70-110)
[2018-05-31] VITALS (7 sets, daily range): BP systolic 142–164; BP diastolic 68–78; PULSE 76–89; RESP 18; TEMP 36.6–37.1; O2SAT 91–94; BMI 48.9
[2018-05-31] MEDS: Insulin Lispro 100 UNIT/ML INSULN.PEN SC ×5 (02:34→21:56)
[2018-05-31 02:51] LABS: Bedside Glucose 230 mg/dL (70-110)
[2018-05-31] MEDS: Nystatin Powder 15gm Bottle 1 APPLIC TOPICAL ×3 (05:07→21:57)
[2018-05-31] MEDS: Menthol/Lanolin/Calamine/Znox 113 GM Tube 1 APPLIC TOPICAL ×3 (05:07→21:45)
[2018-05-31] MEDS: 0.9% Normal Saline 1,000 ML 100 ML IV ×2 (05:10→11:26)
[2018-05-31] MEDS: hydrALAZINE 50 MG Tablet PO ×3 (05:15→21:44)
[2018-05-31 06:14] LABS: Anion Gap 10 (5-15); BUN 54 mg/dL (7-18); BUN/Creat Ratio 15.9 RATIO (10-20); Calcium,Total 7.5 mg/dL (8.5-10.1); Chloride 101 mmol/L (98-107); Creatinine, Serum 3.39 mg/dL (0.55-1.02); EST Glomerular Filtration Rate 15 mL/min (>60); Est Glom Filt Rate - Afr Amer 18 mL/min (>60); Estimated Creatinine Clearance 14.65 ml/min; Glucose 207 mg/dL (74-106); Potassium 4.6 mmol/L (3.5-5.1); Sodium Level 136 mmol/L (136-145)
[2018-05-31 06:26] LABS: Bedside Glucose 214 mg/dL (70-110)
[2018-05-31] MEDS: Gabapentin 100 MG Capsule PO ×3 (07:53→17:28)
[2018-05-31] MEDS: amLODIPine 10 MG Tablet PO (10:03)
[2018-05-31] MEDS: Metoprolol(XL)Succ 100 MG Tablet PO (10:03)
[2018-05-31] MEDS: Glucerna Shake 120 ML LIQUID PO ×4 (10:03→21:55)
[2018-05-31] MEDS: APIXABAN 5 MG TABLET PO ×2 (10:04→21:45)
[2018-05-31] MEDS: Pantoprazole Sodium 20 MG Tablet PO (10:04)
[2018-05-31] MEDS: NYSTATIN 500,000 UNIT/5 ML UDC 500000 UNIT PO ×4 (10:04→21:58)
[2018-05-31] MEDS: DULoxetine Hcl 60 MG Capsule PO (10:04)
[2018-05-31 11:16] LABS: Bedside Glucose 235 mg/dL (70-110)
--- NOTE | 2018-05-31 14:20 | PCM.PN.REN ---
Subjective: no new complaints - Physical Exam General: Alert, Oriented x3, Cooperative HEENT: Atraumatic, PERRLA, EOMI, Normocephalic Neck: Supple, No JVD, Negative Carotid Bruits Lungs: Clear to auscultation, Normal air movement Cardiovascular: Regular rate, No murmurs Abdomen: Bowel Sounds Present, Soft, Non Tender Extremities: No edema, Capillary Refill Less than 3 Seconds Skin: No rashes, No breakdown Musculoskeletal: No Tenderness to Palpation of Joints or Extremities Neurological: Cranial nerves II-XII grossly intact Psych/Mental Status: Normal Affect, Appropriate Vital Signs Temp Pulse Resp BP Pulse Ox 97.9 F 77 18 147/77 H 94 05/31/18 09:25 05/31/18 13:45 05/31/18 09:25 05/31/18 13:45 05/31/18 09:25 Oxygen Flow Rate (L/min) 3 Oxygen Delivery Method Nasal Cannula Weight: 116.8 kg Body Mass Index (BMI) 48.9 Intake and Output for Last 24 Hours 05/29/18 05/30/18 05/31/18 23:59 23:59 23:59 Intake Total 1910 / 1910 930 / 930 580 / 580 Output Total 700 / 700 300 / 300 300 / 300 Balance 1210 / 1210 630 / 630 280 / 280 Microbiology Past 72 Hours 05/27/18 21:35 Urine Culture - Final Urine, Catheterized Kayla albicans Laboratory Tests Past 24 Hrs 05/31/18 05:25 Sodium 136 Potassium 4.6 Chloride 101 Carbon Dioxide 25.0 Anion Gap 10 BUN 54 H Creatinine 3.39 H Estim Creat Clear Calc 14.65 Est GFR (MDRD) Af Amer 18 L Est GFR (MDRD) Non-Af 15 L BUN/Creatinine Ratio 15.9 Glucose 207 H Calcium 7.5 L POC Glucose 05/31/18 05/31/18 05/31/18 11:09 06:21 02:33 POC Glucose 235 H 214 H 230 H 05/30/18 05/30/18 20:05 17:47 POC Glucose 265 H 333 H Medical Necessity - Tobacco Use Smoking Status: Former smoker Assessment/Plan All Active Problems Acute kidney injury (Acute) Acute renal injury due to circulatory failure (Acute) Acute decompensated heart failure (Acute) CARYN CKD stage 3 Baseline creatinine is around 1.8 renal US is ok urine culture is positive lasix is on hold, received fluids through the weekend. creatinine is better. dc fluids today
[2018-05-31 17:11] LABS: Bedside Glucose 326 mg/dL (70-110)
[2018-05-31 21:26] LABS: Bedside Glucose 268 mg/dL (70-110)
[2018-05-31] MEDS: Atorvastatin Calcium 40 MG Tablet PO (21:44)
[2018-05-31] MEDS: 0.9% NaCl Peripheral Flush Adult/Peds IV (22:02)
[2018-06-01] VITALS (10 sets, daily range): BP systolic 127–154; BP diastolic 64–77; PULSE 76–79; RESP 18–24; TEMP 36.5–36.7; O2SAT 88–91; BMI 48.9
[2018-06-01] MEDS: Insulin Lispro 100 UNIT/ML INSULN.PEN SC ×4 (02:15→22:09)
[2018-06-01 02:21] LABS: Bedside Glucose 165 mg/dL (70-110)
[2018-06-01] MEDS: hydrALAZINE 50 MG Tablet PO ×3 (05:58→22:10)
[2018-06-01] MEDS: Nystatin Powder 15gm Bottle 1 APPLIC TOPICAL ×3 (05:58→22:07)
[2018-06-01] MEDS: Menthol/Lanolin/Calamine/Znox 113 GM Tube 1 APPLIC TOPICAL ×3 (05:59→22:10)
[2018-06-01 07:15] LABS: Bedside Glucose 101 mg/dL (70-110)
[2018-06-01] MEDS: Metoprolol(XL)Succ 100 MG Tablet PO (10:51)
[2018-06-01] MEDS: amLODIPine 10 MG Tablet PO (10:51)
[2018-06-01] MEDS: Gabapentin 100 MG Capsule PO ×3 (10:51→17:28)
[2018-06-01] MEDS: NYSTATIN 500,000 UNIT/5 ML UDC 500000 UNIT PO ×4 (10:51→22:07)
[2018-06-01] MEDS: Pantoprazole Sodium 20 MG Tablet PO (10:51)
[2018-06-01] MEDS: APIXABAN 5 MG TABLET PO ×2 (10:52→22:10)
[2018-06-01] MEDS: DULoxetine Hcl 60 MG Capsule PO (10:52)
[2018-06-01] MEDS: Glucerna Shake 120 ML LIQUID PO ×4 (10:53→22:10)
[2018-06-01 12:00] LABS: Bedside Glucose 200 mg/dL (70-110)
--- NOTE | 2018-06-01 12:53 | PCM.PN.NEU ---
Subjective: Complaints. Tolerating therapies. - Physical Exam General: Alert, Oriented x3, Cooperative, No apparent distress Neurological: - - Severe expressive a aphasia, stable Vital Signs Temp Pulse Resp BP Pulse Ox 36.5 C L 79 18 154/74 H 91 06/01/18 09:23 06/01/18 10:51 06/01/18 09:23 06/01/18 10:51 06/01/18 09:23 Oxygen Flow Rate (L/min) 4 Oxygen Delivery Method Nasal Cannula Weight: 116.8 kg Body Mass Index (BMI) 48.9 Intake and Output for Last 24 Hours 05/30/18 05/31/18 06/01/18 23:59 23:59 23:59 Intake Total 930 / 930 1543 / 1543 120 / 120 Output Total 300 / 300 300 / 300 Balance 630 / 630 1243 / 1243 120 / 120 Microbiology Past 72 Hours 05/27/18 21:35 Urine Culture - Final Urine, Catheterized Kayla albicans POC Glucose 06/01/18 06/01/18 06/01/18 11:27 06:22 02:13 POC Glucose 200 H 101 165 H 05/31/18 05/31/18 21:16 17:05 POC Glucose 268 H 326 H Medical Necessity - Tobacco Use Smoking Status: Former smoker Assessment/Plan All Active Problems Acute kidney injury (Acute) Acute renal injury due to circulatory failure (Acute) Acute decompensated heart failure (Acute) 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 I do not see history of COPD in the records. Recent chest x-ray was nonspecifically abnormal. Goal of therapy is rehabilitation to the extent that she regains her prior level of functional independence Plan: Physical therapy for gait and balance Occupational Therapy for ADLs Bowel protocol Speech therapy: 06/01, stable PRN analgesics: 06/01, no issues DVT prophylaxis: Lovenox Severe shortness of breath: Currently she has on 6 L with exertion. I will repeat a chest x-ray and obtain bilateral lower extremity venous ultrasounds. 06/01: Resolved Diabetes: Continue sliding scale insulin Stroke: Left MCA distribution. Will need 30-day event monitor upon discharge.
[2018-06-01 16:51] LABS: Bedside Glucose 262 mg/dL (70-110)
[2018-06-01 20:06] LABS: Complement C3 140 mg/dL (82-167); Cytoplasmic Ab (C-ANCA) <1:20 titer (Neg:<1:20)
[2018-06-01] MEDS: Senna/Docusate Sodium 1 Tablet 2 TABLET PO (22:07)
[2018-06-01] MEDS: Atorvastatin Calcium 40 MG Tablet PO (22:08)
[2018-06-01 22:51] LABS: Bedside Glucose 276 mg/dL (70-110)
--- NOTE | 2018-06-01 23:45 | NURSING ---
DR CRAIN INFORMED THAT PT'S PULSE OX IS CURRENTLY 88% ON 5 LPM O2 PER N/C. INFORMED THAT PT IS SLEEPING AND HAD DENIED SOB EARLIER THIS SHIFT AND THAT PT'S LUNGS WERE CLEAR AND THAT PT PULSE OX WAS 85-87% ON 2LPM O2 PER N/C AND THAT PT WAS THEN INCREASED TO 5 LPM AT 2146. ADVISED MAY INCREASE TO 6 LPM AND CONTINUE TO MONITOR.
[2018-06-02] VITALS (9 sets, daily range): BP systolic 145–153; BP diastolic 72–82; PULSE 74–78; RESP 20; TEMP 36.8–36.9; O2SAT 83–91; BMI 48.9
--- NOTE | 2018-06-02 | NURSING ---
PULSE OX 90% ON 5 LPM O2 PER N/C. PT REMAINS RESTING WITH EYES CLOSED.
[2018-06-02 03:06] LABS: Bedside Glucose 218 mg/dL (70-110)
[2018-06-02] MEDS: Insulin Lispro 100 UNIT/ML INSULN.PEN SC ×5 (03:10→22:32)
[2018-06-02] MEDS: Nystatin Powder 15gm Bottle 1 APPLIC TOPICAL ×3 (05:23→19:45)
[2018-06-02] MEDS: Menthol/Lanolin/Calamine/Znox 113 GM Tube 1 APPLIC TOPICAL ×3 (05:24→19:45)
[2018-06-02] MEDS: hydrALAZINE 50 MG Tablet PO ×3 (05:26→22:32)
[2018-06-02 06:07] LABS: Anion Gap 9 (5-15); BUN 49 mg/dL (7-18); BUN/Creat Ratio 17.6 RATIO (10-20); Calcium,Total 8.1 mg/dL (8.5-10.1); Chloride 103 mmol/L (98-107); Creatinine, Serum 2.78 mg/dL (0.55-1.02); EST Glomerular Filtration Rate 19 mL/min (>60); Est Glom Filt Rate - Afr Amer 23 mL/min (>60); Estimated Creatinine Clearance 17.86 ml/min; Glucose 174 mg/dL (74-106); Sodium Level 137 mmol/L (136-145)
[2018-06-02 07:20] LABS: Bedside Glucose 160 mg/dL (70-110)
[2018-06-02] MEDS: Gabapentin 100 MG Capsule PO ×3 (09:05→16:38)
[2018-06-02] MEDS: DULoxetine Hcl 60 MG Capsule PO (09:05)
[2018-06-02] MEDS: Senna/Docusate Sodium 1 Tablet 2 TABLET PO ×2 (09:05→19:41)
[2018-06-02] MEDS: amLODIPine 10 MG Tablet PO (09:06)
[2018-06-02] MEDS: NYSTATIN 500,000 UNIT/5 ML UDC 500000 UNIT PO ×4 (09:06→19:41)
[2018-06-02] MEDS: Metoprolol(XL)Succ 100 MG Tablet PO (09:06)
[2018-06-02] MEDS: APIXABAN 5 MG TABLET PO ×2 (09:06→19:41)
[2018-06-02] MEDS: Pantoprazole Sodium 20 MG Tablet PO (09:06)
[2018-06-02] MEDS: Glucerna Shake 120 ML LIQUID PO ×4 (09:08→19:44)
[2018-06-02 10:37] LABS: HEPATITIS B SURFACE AG Negative (Negative); Hep C Antibodies <0.1 s/co ratio (0.0-0.9); Perinuclear Ab (P-ANCA) <1:20 titer (Neg:<1:20)
[2018-06-02 10:41] LABS: ANTINUCLEAR ANTIBODIES DIRECT Negative (Negative)
[2018-06-02 11:36] LABS: Bedside Glucose 281 mg/dL (70-110)
--- NOTE | 2018-06-02 13:24 | PN.NEURO_ITS ---
Subjective: No new complaints. Tolerating therapies. No GI or complaints. Denies pain. Consistently cold, recalcitrant to warming blankets per nursing staff. - Physical Exam General: Alert, Cooperative, No apparent distress Neurological: - - Severe expressive a aphasia but is able to tell me her first name today. Follows simple commands. Vital Signs Temp Pulse Resp BP Pulse Ox 36.9 C 74 20 H 150/79 H 91 06/02/18 07:10 06/02/18 09:06 06/02/18 07:10 06/02/18 09:06 06/02/18 07:10 Oxygen Flow Rate (L/min) 3 Oxygen Delivery Method Nasal Cannula Weight: 119.5 kg Body Mass Index (BMI) 48.9 Intake and Output for Last 24 Hours 05/31/18 06/01/18 06/02/18 23:59 23:59 23:59 Intake Total 1543 / 1543 440 / 440 360 / 360 Output Total 300 / 300 Balance 1243 / 1243 440 / 440 360 / 360 Microbiology Past 72 Hours 05/27/18 21:35 Urine Culture - Final Urine, Catheterized Kayla albicans Laboratory Tests Past 24 Hrs 05/29/18 05/29/18 06/02/18 17:25 17:25 05:15 Sodium 137 Potassium 5.0 Chloride 103 Carbon Dioxide 25.0 Anion Gap 9 BUN 49 H Creatinine 2.78 H Estim Creat Clear Calc 17.86 Est GFR (MDRD) Af Amer 23 L Est GFR (MDRD) Non-Af 19 L BUN/Creatinine Ratio 17.6 Glucose 174 H Calcium 8.1 L KEY Screen Negative c-ANCA Antibody <1:20 Atypical p-ANCA <1:20 p-ANCA Antibody <1:20 RASHEED-1 Antibody Not Reportable SS-A/Ro IgG Antibody Not Reportable SS-B/La IgG Antibody Not Reportable Sm (Patel) Antibody Not Reportable LOCOMOTIVE ENGINEER DIESEL Antibody Not Reportable Scl-70 Scleroderma Ab Not Reportable Double Strand DNA Ab Not Reportable Centromere B Antibody Not Reportable Complement C3 140 Complement C4 36 Hep Bs Antigen Negative Hepatitis C Ab (EIA) <0.1 POC Glucose 06/02/18 06/02/18 06/02/18 11:22 07:12 02:53 POC Glucose 281 H 160 H 218 H 06/01/18 06/01/18 22:03 16:27 POC Glucose 276 H 262 H Medical Necessity - Tobacco Use Smoking Status: Former smoker Assessment/Plan All Active Problems Acute kidney injury (Acute) Acute renal injury due to circulatory failure (Acute) Acute decompensated heart failure (Acute) 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 I do not see history of COPD in the records. Recent chest x-ray was nonspecifically abnormal. Goal of therapy is rehabilitation to the extent that she regains her prior level of functional independence Plan: Physical therapy for gait and balance Occupational Therapy for ADLs Bowel protocol Speech therapy: 06/01, stable PRN analgesics: 06/01, no issues DVT prophylaxis: Lovenox Severe shortness of breath: Currently she has on 6 L with exertion. I will repeat a chest x-ray and obtain bilateral lower extremity venous ultrasounds. 06/01: Resolved. 06/02: Remains asymptomatic Diabetes: Continue sliding scale insulin Stroke: Left MCA distribution. Will need 30-day event monitor upon discharge.
--- NOTE | 2018-06-02 14:51 | CASEMGMT ---
Social Work Telephone call received from Madi, patient daughter. Madi reporting to not be agreeable to patient discharging to a retirement and to want patient to discharge to patient sister's home, Stephy. This social media marketing manager communicating that team is currently recommending for patient to have 24hr care and to transition to a retirement. Madi becoming upset with this information and becoming tearful. Madi reporting to not get along with patient son, Fredrick. Fredrick has been main contact thus far and is agreeable to retirement placement for patient. This social media marketing manager encouraging Madi to attend team meeting tomorrow morning. Madi reporting to be unable to attend the meeting. This social media marketing manager also encouraging Madi to speak with Stephy and Fredrick and to work towards communication within the family unit. Madi reporting to have blocked Fredrick's number to have no intentions to speaking with Fredrick. Telephone call to Stephy. This social media marketing manager communicating team meeting time/date for tomorrow. Stephy reporting to be planning to attend. Stephy also not wanting patient to discharge to a retirement. This social media marketing manager noting that patient was unkept when arriving to the hospital and that there are concerns with patient discharging to home with Stephy or Madi. Stephy voicing to have worked in nursing homes and to know how to care for patient. This social media marketing manager encouraging Stephy to hear what team has to stay tomorrow and then to go from there. Stephy voicing understanding. Stephy Alcala and Madi are all reporting to not be getting along and to be reluctant to speak with each other at this time. Will continue to follow as needed. Maribeth Hutton MSW, HUA
[2018-06-02 16:40] LABS: Bedside Glucose 245 mg/dL (70-110)
[2018-06-02] MEDS: LORazepam 0.5 MG Tablet PO (19:40)
[2018-06-02] MEDS: Atorvastatin Calcium 40 MG Tablet PO (19:41)
[2018-06-02 23:00] LABS: Bedside Glucose 322 mg/dL (70-110)
[2018-06-03 02:01] LABS: Bedside Glucose 246 mg/dL (70-110)
[2018-06-03] MEDS: Insulin Lispro 100 UNIT/ML INSULN.PEN SC ×4 (02:11→21:42)
[2018-06-03] MEDS: Nystatin Powder 15gm Bottle 1 APPLIC TOPICAL ×3 (05:44→21:46)
[2018-06-03] MEDS: Menthol/Lanolin/Calamine/Znox 113 GM Tube 1 APPLIC TOPICAL ×3 (05:44→21:46)
[2018-06-03 05:45] VITALS: BP 147/76; PULSE 82
[2018-06-03] MEDS: hydrALAZINE 50 MG Tablet PO ×3 (05:45→21:44)
[2018-06-03 07:00] LABS: Bedside Glucose 145 mg/dL (70-110)
[2018-06-03 07:51] VITALS: BP 146/74; PULSE 78; RESP 16; TEMP 36.6; O2SAT 92
[2018-06-03 08:48] VITALS: BP 146/74; PULSE 78
[2018-06-03] MEDS: Metoprolol(XL)Succ 100 MG Tablet PO (08:48)
[2018-06-03] MEDS: DULoxetine Hcl 60 MG Capsule PO (08:49)
[2018-06-03] MEDS: Pantoprazole Sodium 20 MG Tablet PO (08:49)
[2018-06-03] MEDS: Gabapentin 100 MG Capsule PO ×3 (08:49→16:52)
[2018-06-03] MEDS: APIXABAN 5 MG TABLET PO ×2 (08:49→21:45)
[2018-06-03] MEDS: Senna/Docusate Sodium 1 Tablet 2 TABLET PO ×2 (08:49→21:41)
[2018-06-03] MEDS: amLODIPine 10 MG Tablet PO (08:54)
--- NOTE | 2018-06-03 09:50 | PCM.PN.NEU ---
Subjective: Patient staffed in team meeting. Family present, questions answered. With physical therapy she is contact-guard assistance for transfers she does become short of breath with ambulation. Minimal assistance variably alternating with total assistance with occupational therapy measures. Speech therapy has her on a mechanical soft diet with thin liquids but she is still severely a phasic. No issues from a nursing standpoint. We have recommended ECF placement with family and at this point they are considering this. Plan to discharge on the . - Physical Exam General: Alert, Cooperative, No apparent distress Neurological: - - But is able to tell me her first and last name today. Vital Signs Temp Pulse Resp BP Pulse Ox 36.6 C 78 16 146/74 H 92 06/03/18 07:51 06/03/18 08:48 06/03/18 07:51 06/03/18 08:48 06/03/18 07:51 Oxygen Flow Rate (L/min) 3 Oxygen Delivery Method Nasal Cannula Weight: 119.2 kg Body Mass Index (BMI) 48.9 Intake and Output for Last 24 Hours 06/01/18 06/02/18 06/03/18 23:59 23:59 23:59 Intake Total 440 / 440 560 / 560 560 / 560 Output Total 2 / 2 Balance 440 / 440 558 / 558 560 / 560 Laboratory Tests Past 24 Hrs 05/29/18 05/29/18 17:25 17:25 KEY Screen Negative c-ANCA Antibody <1:20 Atypical p-ANCA <1:20 p-ANCA Antibody <1:20 RASHEED-1 Antibody Not Reportable SS-A/Ro IgG Antibody Not Reportable SS-B/La IgG Antibody Not Reportable Sm (Patel) Antibody Not Reportable BIOMEDICAL ENGINEER Antibody Not Reportable Scl-70 Scleroderma Ab Not Reportable Double Strand DNA Ab Not Reportable Centromere B Antibody Not Reportable Complement C3 140 Complement C4 36 Hep Bs Antigen Negative Hepatitis C Ab (EIA) <0.1 POC Glucose 06/03/18 06/03/18 06/02/18 06:31 01:55 22:31 POC Glucose 145 H 246 H 322 H 06/02/18 06/02/18 16:38 11:22 POC Glucose 245 H 281 H Medical Necessity - Tobacco Use Smoking Status: Former smoker Assessment/Plan All Active Problems Acute kidney injury (Acute) Acute renal injury due to circulatory failure (Acute) Acute decompensated heart failure (Acute) 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 I do not see history of COPD in the records. Recent chest x-ray was nonspecifically abnormal. Goal of therapy is rehabilitation to the extent that she regains her prior level of functional independence Plan: Physical therapy for gait and balance Occupational Therapy for ADLs Bowel protocol Speech therapy: 06/01, stable PRN analgesics: 06/01, no issues DVT prophylaxis: Lovenox Severe shortness of breath: Currently she has on 6 L with exertion. I will repeat a chest x-ray and obtain bilateral lower extremity venous ultrasounds. 06/01: Resolved. 06/02: Remains asymptomatic Diabetes: Continue sliding scale insulin Stroke: Left MCA distribution. Will need 30-day event monitor upon discharge. Plan to discharge on 06/12. At this point family agrees to ECF placement however may change
--- NOTE | 2018-06-03 10:27 | CASEMGMT ---
Team meeting held. Patient present as well as patient sister, June. Tentative discharge date set for 06/12/18, as this is when patient medicare days are up. Team communicating that current recommending would be for patient to [place] a [place] [facility] facility for further therapy service. June voicing understanding and agreeable to fci placement in the [facility] area. Stephy is not agreeable to fci in [facility], which is where Fredrick has been wanting patient to discharge to. June aware that since there is no power of asp net developer in place and patient is unable to make own decision that the final decision falls to Fredrick and Madi. Patient to continue with further care and treatment on the Inpatient Rehab Unit until time of discharge. Telephone call to Fredrick to update on team meeting, voicemail left. Wondering if maybe Fredrick would be open to fci placement in [facility] as this might be something that the whole family would agree on? Telephone call received from Madi Barraza reporting to be open to fci placement for patient in [facility]. This director of social services encouraging Madi to speak with Fredrick in regards to this plan as well. Madi refusing to speak to Fredrick and stating that Fredrick has blocked Madi's number any ways. Will continue to follow to determine an agreed upon discharge plan. Maribeth NGUYEN, HUA
[2018-06-03] MEDS: NYSTATIN 500,000 UNIT/5 ML UDC 500000 UNIT PO ×4 (11:11→21:44)
[2018-06-03] MEDS: Glucerna Shake 120 ML LIQUID PO ×4 (11:11→21:47)
[2018-06-03 12:10] LABS: Bedside Glucose 214 mg/dL (70-110)
[2018-06-03 13:11] VITALS: BMI 48.9
--- NOTE | 2018-06-03 14:28 | CASEMGMT ---
Social Work Spoke with Fredrick, patient son. Fredrick updated on team meeting. Fredrick is not agreeable to patient discharging to a nursing facility in [facility] and would like patient to discharge to [facility] in [place], [place] [phone]. This social services specialist encouraging Fredrick to speak with Madi about this decision so that Madi and Fredrick can get on the same page. Fredrick declining to speak with Madi stating to not know where she is. Fredrick stating that last Fredrick heard Madi was homeless. Fredrick aware that it would be in the best interest of the patient and patient family if Madi and Fredrick would be able to agree on location of group home. Telephone call to Madi. Madi is now agreeable to patient discharging to [facility] (which is where [facility] is located). However, Madi is not agreeable to [facility]. This social services specialist inquiring about Madi's current location. Madi reporting to be homeless and to be around the [facility], which is close to [place]. This social services specialist inquiring that maybe [facility] would be a good option as this would be close to both Fredrick and Madi. Madi is not agreeing to this at this time and plans to contact this social services specialist tomorrow morning after researching other nursing facilities in the [facility] area. Madi also declining to contact Fredrick in regards to this decision stating we are not in contact. This social services specialist pointing out that being in communication with Fredrick would help with establishing the best discharge plan for patient, Madi not agreeing to this. Will continue to follow. PLAN: Discharge to a group home in [facility] that is to be determined. Maribeth NGUYEN, HUA
[2018-06-03 14:40] VITALS: O2SAT 86
[2018-06-03 16:51] LABS: Bedside Glucose 204 mg/dL (70-110)
[2018-06-03 21:40] LABS: Bedside Glucose 177 mg/dL (70-110)
[2018-06-03 21:44] VITALS: BP 156/71; PULSE 73
[2018-06-03] MEDS: LORazepam 0.5 MG Tablet PO (21:45)
[2018-06-03] MEDS: Atorvastatin Calcium 40 MG Tablet PO (21:45)
[2018-06-03 22:00] VITALS: BP 156/71; PULSE 73; RESP 18; TEMP 36.8; O2SAT 90
[2018-06-04] VITALS (16 sets, daily range): BP systolic 117–152; BP diastolic 71–85; PULSE 72–81; RESP 18–24; TEMP 36.6; O2SAT 89–95; BMI 48.9
[2018-06-04] MEDS: Ipratropium/Albuterol Sulfate 3 ML AMPUL.NEB INHALATION ×6 (01:20→23:41)
--- NOTE | 2018-06-04 01:33 | RAD_ITS ---
STUDY: X-RAY CHEST REASON FOR EXAM: Female, 52 years old. Dyspnea TECHNIQUE: Single frontal view of the chest. COMPARISON: Hemorrhage 16/10/2018. FINDINGS: Bilateral pleural effusions. No pneumothorax. Worsening diffuse airspace disease. Cardiomegaly. Aortic calcifications. There are diffuse degenerative changes of the visualized thoracic spine. Normal visualized ribs, clavicles, and shoulders. There is no demonstrated abnormality of the visualized soft tissue structures of the upper abdomen. RAD/Chest 1 View (Portable) IMPRESSION: Worsening diffuse airspace disease. Correlate for worsening pneumonia and/or edema. Bilateral pleural effusions. Cardiomegaly. Recommend follow-up imaging to ensure resolution. Electronically Signed: Wilder Ruvalcaba, at 3:04 EST Tel , Service support ,
--- NOTE | 2018-06-04 01:37 | PCM.PN.BLA ---
Progress Note Nurse reports that patient with COPD is having increased respiratory distress with use of accessory muscle use; with respiratory rate of about 24 and with hypoxia requiring nonrebreather mask and later transitioned to nasal cannula. We will get a stat chest x-ray Wound change DuoNeb from as needed to scheduled We will get a comprehensive respiratory pathogen panel Will give Solu-medrol 125mg x 1 now; and then 40mg every 8 hours.
--- NOTE | 2018-06-04 01:38 | NURSING ---
Found with O2 off. Resp 24, SOB, exp wheezes audible present. O2 reapplied, increased to 5L; Sats checked - 82%. Respiratory called for aeresol treatment. NR mask applied, sats up to 98%. Due to COPD, NC reapplied and set at 4L. Sats now 88%. Continues using accessory muscles. Hospitalist notified, orders recieved.
--- NOTE | 2018-06-04 03:02 | NURSING ---
Multiple attempts to obtain IV site by two RNs unsuccessful. Sats now 90% on 5L. Resp now 20; BP 127/77; HR 76 Temp 98.3 orally. Appears more restful. No diaphoresis throughout resp distress episode
[2018-06-04 03:06] LABS: Bedside Glucose 141 mg/dL (70-110)
--- NOTE | 2018-06-04 03:28 | NURSING ---
Sats at 94%. Resp 20. Sleeping. O2 decreased to 4L per NC
[2018-06-04] MEDS: Furosemide 40 MG Tablet PO (04:22)
--- NOTE | 2018-06-04 04:24 | NURSING ---
Sats 92% on 4L. Resp 20
[2018-06-04] MEDS: hydrALAZINE 50 MG Tablet PO ×3 (05:43→20:24)
[2018-06-04] MEDS: Nystatin Powder 15gm Bottle 1 APPLIC TOPICAL ×3 (05:45→20:26)
[2018-06-04] MEDS: Menthol/Lanolin/Calamine/Znox 113 GM Tube 1 APPLIC TOPICAL ×3 (05:46→20:27)
[2018-06-04 06:13] LABS: Anion Gap 7 (5-15); BUN 44 mg/dL (7-18); BUN/Creat Ratio 18.3 RATIO (10-20); Calcium,Total 8.3 mg/dL (8.5-10.1); Chloride 105 mmol/L (98-107); Creatinine, Serum 2.41 mg/dL (0.55-1.02); EST Glomerular Filtration Rate 22 mL/min (>60); Est Glom Filt Rate - Afr Amer 27 mL/min (>60); Estimated Creatinine Clearance 20.61 ml/min; Glucose 129 mg/dL (74-106); Potassium 4.9 mmol/L (3.5-5.1); Sodium Level 139 mmol/L (136-145)
[2018-06-04 06:23] LABS: Hematocrit 26.3 % (37-47); Hemoglobin 7.8 g/dl (12.0-15.0); Mean Corp Hgb Conc 29.7 g/gl (32-36); Mean Platelet Vol. 12.5 fl (6.2-12.0); Platelet Count 309 K/mm3 (150-450); RBC Distribution Width CV 14.5 % (11.6-14.6); RBC Distribution Width SD 46.4 fl (35.1-43.9); Red Blood Count 2.89 M/mm3 (4.2-5.4); White Blood Count 6.9 K/mm3 (4.4-11.0)
[2018-06-04 06:33] LABS: Scan Indicated on CBC? Y/N NO
--- NOTE | 2018-06-04 07:00 | NURSING ---
No acute distress noted. patient awakened easily and followed directions. patient resting in bed, HOB elevated R 24 spo2 89% with O2 @ 4l/m via n.c. Left lower lobe diminished, right and LUE lobe CTA, post.
--- NOTE | 2018-06-04 07:35 | PCM.PN.HOSP ---
Subjective: Patient was seen and examined. Overnight, she was reported really short of breath, said to be wheezing use of accessory muscles of respiration. Stat chest x-ray showed worsening diffuse airspace disease, bilateral pleural effusion with cardiomegaly Patient received Lasix 40mg PO x1 because IV access could not be placed. At the time of examination, patient is feeling sleepy from last night. She denied any new complaints. She states her breathing is better. She is on 4 L of oxygen Vitals/I&O's: Vital Signs Temp Pulse Resp BP Pulse Ox 98.2 F 78 18 152/85 H 92 06/03/18 22:00 06/04/18 06:35 06/04/18 06:35 06/04/18 05:43 06/04/18 06:35 Oxygen Flow Rate (L/min) 4 Oxygen Delivery Method Nasal Cannula Weight: 119.2 kg Body Mass Index (BMI) 48.9 Intake and Output for Last 24 Hours 06/02/18 06/03/18 06/04/18 23:59 23:59 23:59 Intake Total 560 / 560 1100 / 1100 Output Total 2 / 2 Balance 558 / 558 1100 / 1100 General: Alert, Oriented x3, Cooperative, No apparent distress, - - sleeping, appears comfortable, on 4L oxygen, obese HEENT: Atraumatic, PERRLA, EOMI, Normocephalic Oral: Moist Mucosa Neck: Supple Lungs: Normal air movement, Diminished - at the lung bases Cardiovascular: Regular rate, Regular Rhythm, Normal S1, Normal S2, No murmurs Abdomen: Bowel Sounds Present, Soft, Non Tender, Non-Distended, No Hepato-splenomegaly, Obese Extremities: No edema Skin: No rashes, No breakdown Musculoskeletal: No Tenderness to Palpation of Joints or Extremities Lymphatic: No Cervical, Supraclavicular, or Inguinal Adenopathy Neurological: Cranial nerves II-XII grossly intact, Neuro grossly intact Psych/Mental Status: Normal Affect, Appropriate Laboratory Results 06/03/18 12:02: POC Glucose 214 H 06/03/18 16:37: POC Glucose 204 H 06/03/18 21:37: POC Glucose 177 H 06/04/18 03:00: POC Glucose 141 H 06/04/18 05:15: WBC 6.9, RBC 2.89 L, Hgb 7.8 L, Hct 26.3 L, MCV 91.0, MCH 27.0, MCHC 29.7 L, RDW 14.5, RDW Differential 46.4 H, Plt Count 309, MPV 12.5 H 06/04/18 05:15: Sodium 139, Potassium 4.9, Chloride 105, Carbon Dioxide 27.0, Anion Gap 7, BUN 44 H, Creatinine 2.41 H, Estim Creat Clear Calc 20.61, Est GFR (MDRD) Af Amer 27 L, Est GFR (MDRD) Non-Af 22 L, BUN/Creatinine Ratio 18.3, Glucose 129 H, Calcium 8.3 L 06/04/18 05:15: B-Natriuretic Peptide Pending Current Medications Acetaminophen (Tylenol) 650 mg PO Q6H PRN PRN PRN Reason: Mild Pain (0-3/10)/Headache Albuterol Sulfate (Ventolin Aerosols) 2.5 mg INHALATION Q2H PRN PRN PRN Reason: SHORTNESS OF BREATH Albuterol/Ipratropium (Duoneb) 3 ml INHALATION Q4H.RT [facility] Last Admin: 06/04/18 06:35 Dose: 3 ml Amlodipine Besylate (Norvasc) 10 mg PO DAILY [facility] Last Admin: 06/03/18 08:54 Dose: 10 mg Apixaban (Eliquis) 5 mg PO BID [facility] Last Admin: 06/03/18 21:45 Dose: 5 mg Atorvastatin Calcium (Lipitor) 40 mg PO QHS [facility] Last Admin: 06/03/18 21:45 Dose: 40 mg Bisacodyl (Dulcolax) 10 mg RECTAL .PRN X 1 PRN PRN Reason: Constipation Calamine/Phenol (Calmoseptine Ointment) 1 applic TOPICAL TID [facility]; Protocol Last Admin: 06/04/18 05:46 Dose: 1 applicatio Duloxetine HCl (Cymbalta) 60 mg PO DAILY [facility] Last Admin: 06/03/18 08:49 Dose: 60 mg Gabapentin (Neurontin) 100 mg PO TIDCM [facility] Last Admin: 06/03/18 16:52 Dose: 100 mg Hydralazine HCl (Apresoline) 50 mg PO TID [facility] Last Admin: 06/04/18 05:43 Dose: 50 mg Insulin Glargine (Lantus (Bkc)) 10 units SC BID [facility] Last Admin: 06/03/18 21:43 Dose: 10 u Insulin Human Lispro (Humalog Kwikpen (Bkc)) 0 unit SC ACHS & 3AM [facility]; Protocol Last Admin: 06/04/18 03:06 Dose: Not Given Loperamide HCl (Imodium) 2 mg PO Q4H PRN PRN PRN Reason: Diarrhea Last Admin: 05/23/18 07:59 Dose: 2 mg Lorazepam (Ativan) 0.5 mg PO QHS PRN PRN PRN Reason: SLEEP Last Admin: 06/03/18 21:45 Dose: 0.5 mg Metoprolol Succinate (Toprol Xl (Beta Ángela)) 100 mg PO DAILY [facility] Last Admin: 06/03/18 08:48 Dose: 100 mg Nutritional Formula (Lactose Free) (Glucerna Shake) 120 ml PO 4X/DAY [facility] Last Admin: 06/03/18 21:47 Dose: 120 ml Nystatin (Mycostatin Powder) 1 applic TOPICAL TID [facility]; Protocol Last Admin: 06/04/18 05:45 Dose: 1 applicatio Nystatin (Nystatin) 500,000 unit PO 4X/DAY [facility] Last Admin: 06/03/18 21:44 Dose: 500,000 unit Ondansetron HCl (Zofran Odt) 4 mg PO Q8H PRN PRN Reason: NAUSEA Last Admin: 05/26/18 12:56 Dose: 4 mg Pantoprazole Sodium (Protonix) 20 mg PO DAILY [facility] Last Admin: 06/03/18 08:49 Dose: 20 mg Senna/Docusate Sodium (Senokot-S, Brenda-Colace) 2 tablet PO BID [facility] Last Admin: 06/03/18 21:41 Dose: 2 tablet Sodium Chloride () 5 - 15 ml IV UD PRN PRN Reason: SALINE FLUSH Last Admin: 05/31/18 22:02 Dose: 10 ml Sodium Chloride ([place] Nasal [place]) 1 spray NASAL TID PRN PRN PRN Reason: NASAL DRYNESS Medical Necessity - Tobacco Use Smoking Status: Former smoker Assessment/Plan All Active Problems Acute kidney injury (Acute) Acute renal injury due to circulatory failure (Acute) Acute decompensated heart failure (Acute) 52-year-old with multiple comorbidities including obesity, type II DM, CAD status post stent, hypertension admittred to acute rehab with debility after astroke. 1. Acute on chronic respiratory insufficiency secondary to likely acute on chronic diastolic CHF, currently on 4 L of oxygen, Encourage incentive spirometer, continue treatment for CHF 2. Acute on chronic CHF, diastolic, EF 65%/pulmonary hypertension Patient's latest chest x-ray shows worsening airspace disease, unlikely to be pneumonia as patient has no fever or leukocytosis Patient recently had IV fluids for CARYN on CKD and Lasix was on hold Will resume lasix at 20mg po bid, strict I & Os, repeat BMP in am 3. Debility secondary to recent CVA, with multiple comorbidities, undergoing therapy. 4. Acute left soleal DVT on Eliquis BID 5. Acute left posterior, temporal, posterior frontal and parietal lobes CVA, on Eliquis, statin 7. Recent CAP, completed antibiotics 8. CARYN on CKD stage 3, creatinine was elevated to 4.08 about 5 days ago, improved to 2.41, will continue to monitor with start of Lasix 9. Hypertension, fairly uncontrolled, continue on amlodipine, metoprolol, hydralazine, will continue to monitor 10. Type 2 DM, blood sugars are controlled, continue on Lantus, insulin sliding scale with accucheks 11. CAD status post stent, on aspirin, statin, metoprolol, lisinopril 12. Morbid obesity, BMI 48.4 13. DVT PPx- Apixaban Code Visit Inpatient E&M: 89184 Subs Hosp L2
[2018-06-04 07:36] LABS: Bedside Glucose 122 mg/dL (70-110)
[2018-06-04 08:15] LABS: BNP,B-Type NATRIURETIC PEPTIDE 209.5 pg/mL (0-100)
[2018-06-04 08:28] LABS: Iron 24 ug/dL (50-170); Iron Binding Capacity,Total 208 ug/dL (250-450); PERCENT IRON SATURATION 11.5 % (15.0-55.0)
[2018-06-04] MEDS: DULoxetine Hcl 60 MG Capsule PO (08:46)
[2018-06-04] MEDS: Pantoprazole Sodium 20 MG Tablet PO (08:46)
[2018-06-04] MEDS: amLODIPine 10 MG Tablet PO (08:46)
[2018-06-04] MEDS: NYSTATIN 500,000 UNIT/5 ML UDC 500000 UNIT PO ×4 (08:46→20:24)
[2018-06-04] MEDS: Gabapentin 100 MG Capsule PO ×3 (08:46→17:24)
[2018-06-04] MEDS: Metoprolol(XL)Succ 100 MG Tablet PO (08:46)
[2018-06-04] MEDS: APIXABAN 5 MG TABLET PO ×2 (08:47→20:24)
[2018-06-04] MEDS: Glucerna Shake 120 ML LIQUID PO ×4 (08:48→20:28)
--- NOTE | 2018-06-04 09:06 | CASEMGMT ---
Social Work Telephone call from William. Alcala requesting for referral process to be started to [facility] as things are getting dramatic in regards to Madi and Stephy. Fredrick stating that Madi is now wanting patient to discharge to a retirement in [facility] again. Collaborating with team on best interest of patient. Team agreeing that best interest would be for patient to discharge to a retirement and that is appears that Madi is unable to make a final decision. Speech therapy reporting to have conducted several interventions attempting to establish patient choice in regards to a retirement in [facility] or [facility] and per the speech therapies clinical judgement patient is requesting for retirement placement to be set up in [facility]. Patient is originally from [facility] and was living in [facility] prior to this hospitalization when patient sister, Stephy brought patient to [facility] with hopes that patient would be able to discharge to home with June. Patient also established with Medicaid in [facility]. Referral to be made to [facility] per Will request. Telephone call to [facility], , voicemail left for Erica. Armstrong to contact this psychologist social back. Transfer form initiated. Proposed discharge: 06/12/18. PLAN: Discharge to SNF located in [facility]. HUA Roca
--- NOTE | 2018-06-04 10:44 | NURSING ---
patient participated in therapy and now is sitting up in chair watching T.V. Dr. santana was here and new orders received. No acute distress noted.
--- NOTE | 2018-06-04 10:55 | PN.NEURO_ITS ---
Subjective: Per the nursing documentation and hospitalist documentation overnight patient had labored breathing with the use of abdominal muscles. Patient was given Lasix 40mg 1 dose overnight. Per the hospitalist documentation patient probably had acute on chronic CHF and has been restarted on Lasix 20 mg p.o. twice daily by the hospitalist. Unlikely to be pneumonia at present as patient has no fever or leukocytosis. At present this morning patient is in the therapy feeling much better, continues to have expressive aphasia. Denies any shortness of breath at present. Patient had a urine culture reported to show Kayla albicans, thought to be contamination from urethra by the hospitalist, 1 dose of Diflucan was given but no further antibiotics recommended by the hospitalist. Anterior abdominal wall wound is improving per the nursing staff. - Physical Exam General: Alert HEENT: Normocephalic Neck: Supple Lungs: Normal air movement Cardiovascular: Normal S1, Normal S2 Abdomen: Bowel Sounds Present Extremities: No cyanosis Neurological: - - consious, awake, CN 2-12 grossly intact, has receptive aphasia, comprehension is somewhat impaired, power 5/5 all 4 extremities, denies any sensory loss, no cerebellar signs, Reflexes + B/L B/S/T/K/A, gait deferred, NIHSS 2 at present. Vital Signs Temp Pulse Resp BP Pulse Ox 97.8 F 78 20 H 152/85 H 89 06/04/18 08:43 06/04/18 08:46 06/04/18 10:00 06/04/18 08:43 06/04/18 08:43 Oxygen Flow Rate (L/min) 4 Oxygen Delivery Method Nasal Cannula Weight: 119.476 kg Body Mass Index (BMI) 48.9 Intake and Output for Last 24 Hours 06/02/18 06/03/18 06/04/18 23:59 23:59 23:59 Intake Total 560 / 560 1100 / 1100 360 / 360 Output Total 2 / 2 Balance 558 / 558 1100 / 1100 360 / 360 Microbiology Past 72 Hours 06/04/18 01:45 Respiratory Panel (PCR) - Final Mucosa - Nasopharyngeal Laboratory Tests Past 24 Hrs 06/04/18 06/04/18 06/04/18 05:15 05:15 05:15 WBC 6.9 RBC 2.89 L Hgb 7.8 L Hct 26.3 L MCV 91.0 MCH 27.0 MCHC 29.7 L RDW 14.5 RDW Differential 46.4 H Plt Count 309 MPV 12.5 H Sodium 139 Potassium 4.9 Chloride 105 Carbon Dioxide 27.0 Anion Gap 7 BUN 44 H Creatinine 2.41 H Estim Creat Clear Calc 20.61 Est GFR (MDRD) Af Amer 27 L Est GFR (MDRD) Non-Af 22 L BUN/Creatinine Ratio 18.3 Glucose 129 H Calcium 8.3 L Iron TIBC Iron Saturation B-Natriuretic Peptide 209.5 H 06/04/18 05:30 WBC RBC Hgb Hct MCV MCH MCHC RDW RDW Differential Plt Count MPV Sodium Potassium Chloride Carbon Dioxide Anion Gap BUN Creatinine Estim Creat Clear Calc Est GFR (MDRD) Af Amer Est GFR (MDRD) Non-Af BUN/Creatinine Ratio Glucose Calcium Iron 24 L TIBC 208 L Iron Saturation 11.5 L B-Natriuretic Peptide POC Glucose 06/04/18 06/04/18 06/03/18 06:57 03:00 21:37 POC Glucose 122 H 141 H 177 H 06/03/18 06/03/18 16:37 12:02 POC Glucose 204 H 214 H Medical Necessity - Tobacco Use Smoking Status: Former smoker Assessment/Plan All Active Problems Acute kidney injury (Acute) Acute renal injury due to circulatory failure (Acute) Acute decompensated heart failure (Acute) 52 yr F with PMH HTN, HLD, DM, CAD s/p stents, Diastolic CHF, CKD, [place], recent h/o abdominal wall cellulitis, obesity, admitted to [facility] on 05/21/18, with debility s/p acute left MCA stroke, for > 3 hrs therapy daily, with a goal of returning home at or near her prior level of functional independence. MRI brain reported to show large Left MCA stroke, MRA head/neck- no hemodynamically si gnificant stenosis or occlusion. TTE-EF 60%, normal LA size, no PFO. LDL-63, Znf2e-91.2. On Eliquis for acute DVT in left soleus vein. On Statins. Plan -PT for gait stability -OT for ADLs -ST for aphasia -Analgesics per protocol -Bowel protocol -Acute on Chronic Diastolic CHF- re-started on Lasix 20 mg PO BID, on 4 L oxygen -Acute large Left MCA stroke-was on ASA and Plavix but was later found to have acute left soleal DVT and was started on Eliquis by hospitalist following which ASA/Plavix was held due to bleeding risk given the large left MCA stroke. 30 day event recorder on discharge. Repeat CT head 05/26/18-stable -Acute DVT- found to have acute left soleal DVT since admission to rehab unit, started on Eliquis by hospitalist. V/Q scan lung-low probability of PE. -HTN- goal BP < 130/80 mmHg. On Amlodipine, hydralazine and Metoprolol -HLD-on Lipitor 40 mg PO q hs. -DM- on Insulin -DM Neuropathy- on Gabapentin 100 mg PO TID and Cymbalta 60 mg PO once daily -CAD s/p stents and Diastolic CHF- on Lasix and metoprolol -COPD- on Albuterol and oxygen -CKD-Creatinine 2.41- Nephrology following. Recommendations followed. Nephrology concerned about possible ILD, needs Pulmonology consult as outpatient -Continues to have Skin tears of the anterior abdominal wall but improving per nurse, wound nurse consult, on nystatin, topical wound preparation. Shane mitchell 05/25/2018. Voiding appropriately since then. May have incontinence too -Hospitalist consult -Further medical management per hospitalist recommendations -Fall precautions -GI/DVT prophylaxis- Protonix/On Eliquis -Follow up with PCP, Neurology, Cardiology, Pulmonology and Nephrology on discharge
[2018-06-04] MEDS: Furosemide 20 MG/2 ML VIAL IV (11:11)
[2018-06-04] MEDS: 0.9% NaCl Peripheral Flush Adult/Peds IV ×3 (11:12→20:42)
[2018-06-04 11:50] LABS: Bedside Glucose 184 mg/dL (70-110)
[2018-06-04] MEDS: Insulin Lispro 100 UNIT/ML INSULN.PEN SC ×3 (11:53→20:25)
--- NOTE | 2018-06-04 11:59 | PCM.RU.DC ---
Rehab Discharge Summary DATE OF ADMISSION: 05/20/18 DATE OF DISCHARGE: 06/10/2018 - Rehab Diagnosis Debility post Left MCA stroke Subjective: No issues overnight. Care discussed with the nursing staff. - Physical Exam General: Alert HEENT: Normocephalic Neck: Supple Lungs: Normal air movement Cardiovascular: Normal S1, Normal S2 Abdomen: Bowel Sounds Present Extremities: No cyanosis Neurological: - - consious, awake, CN 2-12 grossly intact, has receptive aphasia though improving, comprehension is somewhat impaired, power 5/5 all 4 extremities, denies any sensory loss, no cerebellar signs, Reflexes + B/L B/S/T/K/A, gait deferred, NIHSS 1 at present. Vital Signs Temp Pulse Resp BP Pulse Ox 97.8 F 78 20 H 152/85 H 89 06/04/18 08:43 06/04/18 08:46 06/04/18 10:00 06/04/18 08:43 06/04/18 08:43 Oxygen Flow Rate (L/min) 4 Oxygen Delivery Method Nasal Cannula Weight: 119.476 kg Body Mass Index (BMI) 48.9 Intake and Output for Last 24 Hours 06/02/18 06/03/18 06/04/18 23:59 23:59 23:59 Intake Total 560 / 560 1100 / 1100 360 / 360 Output Total 2 / 2 Balance 558 / 558 1100 / 1100 360 / 360 Microbiology Past 72 Hours 06/04/18 01:45 Respiratory Panel (PCR) - Final Mucosa - Nasopharyngeal Laboratory Tests Past 24 Hrs 06/04/18 06/04/18 06/04/18 05:15 05:15 05:15 WBC 6.9 RBC 2.89 L Hgb 7.8 L Hct 26.3 L MCV 91.0 MCH 27.0 MCHC 29.7 L RDW 14.5 RDW Differential 46.4 H Plt Count 309 MPV 12.5 H Sodium 139 Potassium 4.9 Chloride 105 Carbon Dioxide 27.0 Anion Gap 7 BUN 44 H Creatinine 2.41 H Estim Creat Clear Calc 20.61 Est GFR (MDRD) Af Amer 27 L Est GFR (MDRD) Non-Af 22 L BUN/Creatinine Ratio 18.3 Glucose 129 H Calcium 8.3 L Iron TIBC Iron Saturation B-Natriuretic Peptide 209.5 H 06/04/18 05:30 WBC RBC Hgb Hct MCV MCH MCHC RDW RDW Differential Plt Count MPV Sodium Potassium Chloride Carbon Dioxide Anion Gap BUN Creatinine Estim Creat Clear Calc Est GFR (MDRD) Af Amer Est GFR (MDRD) Non-Af BUN/Creatinine Ratio Glucose Calcium Iron 24 L TIBC 208 L Iron Saturation 11.5 L B-Natriuretic Peptide POC Glucose 06/04/18 06/04/18 06/04/18 11:24 06:57 03:00 POC Glucose 184 H 122 H 141 H 06/03/18 06/03/18 06/03/18 21:37 16:37 12:02 POC Glucose 177 H 204 H 214 H Discharge Diet: 1800 Calorie Control Diet Call your doctor if you observe: Fever of 101 or Higher, Coldness, Increased Pain, Numbness or Tingling, Change in Color, Inability to urinate, Inability to have a bowel movement, Using more than one pad per hour, Shortness of breath, Dizziness, Fainting spells, Swelling in the ankles, Chest pain, Prolonged hiccoughing, Increased palpitations (irregular heartbeat), Calf discomfort, Uncontrolled pain Home Medications: Medications to take at Discharge Duloxetine Hcl [Cymbalta] 60 mg PO DAILY 01/09/18 Amlodipine [Norvasc] 10 mg PO DAILY 05/18/18 Metoprolol Succinate [Toprol Xl] 100 mg PO DAILY 05/18/18 Atorvastatin Calcium [Lipitor] 40 mg PO QHS 05/20/18 Gabapentin [Neurontin] 100 mg PO TIDCM 05/20/18 Insulin Glargine [Lantus SoloStar Pen] 10 units SC BID 05/20/18 Insulin Lispro [Humalog KwikPen] See Protocol SQ ACHS & 3AM 05/20/18 Nystatin Powder [Mycostatin Powder] 1 applic TOPICAL BID bottle 05/20/18 hydrALAZINE [Apresoline] 25 mg PO TID 05/20/18 Apixaban [Eliquis] 5 mg PO BID tablet 06/04/18 Duloxetine Hcl [Cymbalta] 60 mg PO DAILY capsule 06/04/18 Furosemide [Lasix] 20 mg PO BID@1000,1800 tablet 06/04/18 Glucerna Shake 120 ml PO 4X/DAY liquid 06/04/18 Menthol/Lanolin/Calamine/Znox [Calmoseptine Ointment] 1 applic TOPICAL TID tube 06/04/18 Nystatin Powder [Mycostatin Powder] 1 applic TOPICAL TID bottle 06/04/18 Pantoprazole Sodium [Protonix] 20 mg PO DAILY tablet 06/04/18 Quetiapine Fumarate [Seroquel] 25 mg PO BID tablet 06/09/18 hydrALAZINE [Apresoline] 100 mg PO TID tablet 06/09/18 Primary Care Physician: Care Physician,No Primary [Primary Care Provider] - Please follow up with your Primary Care Physician in: Follow up with PCP in 1-2 weeks Please Follow Up With: Bobby Irizarry DO When: Follow up with Pulmonology 1-2 weeks to R/O ILD When: Follow up with Nephrology in 1-2 weeks When: Follow up with Neurology in 1-2 weeks Rehab Course 52 yr F with PMH HTN, HLD, DM, CAD s/p stents, Diastolic CHF, CKD, [place], recent h/o abdominal wall cellulitis, obesity, admitted to [facility] on 05/21/18, with debility s/p acute left MCA stroke, for > 3 hrs therapy daily, with a goal of returning home at or near her prior level of functional independence. MRI brain reported to show large Left MCA stroke, MRA head/neck- no hemodynamically significant stenosis or occlusion. TTE-EF 60%, normal LA size, no PFO. LDL-63, Blc8o-64.2. Was noted to have acute left soleus DVT and started on Eliquis, ASA and Plavix was held at that time given the large size of the left MCA stroke and increased bleeding risks. On Statins. Was seen by wound nurse for abdominal wound, continued on statin and abdominal wound continued to improve, her rehab course was complicated with change in mental status, had urine culture growth with misty albicans which was thought to be contaminant by the hospitalist and she received 1 dose Diflucan, also had acute on chronic CHF for which her Lasix was restarted, Nephrology consulted for worsening creatinine and recommendations followed. Patient tolerated therapies well. During the rehab course patient needed Haldol as needed for some agitation and was started on Seroquel 25 mg p.o. twice daily by the hospitalist following which patient's agitation improved. She is being discharge to [place] for further therapy at present. Continues to have expressive aphasia. Patient is currently on Eliquis for acute DVT, will defer further decision making about Eliquis for DVT to the PCP. If and when the Eliquis is discontinued by the PCP patient should be restarted on antiplatelets. Follow up with PCP, Neurology, Cardiology, Pulmonology and Nephrology on discharge. [] Meaningful Use Info Meaningful Use Diagnoses (Choose all that apply): None applicable
--- NOTE | 2018-06-04 13:12 | CASEMGMT ---
Social Work Telephone call received from Patti Jimenez. Patti reporting to be able to review clinicals and get back to this social and human services assistant. Will continue to follow. Maribeth NGUYEN, HUA
--- NOTE | 2018-06-04 14:35 | PCM.PN.REN ---
Subjective: events noted feels well now - Physical Exam General: Alert, Oriented x3, Cooperative HEENT: Atraumatic, PERRLA, EOMI, Normocephalic Neck: Supple, No JVD, Negative Carotid Bruits Lungs: Clear to auscultation, Normal air movement Cardiovascular: Regular rate, No murmurs Abdomen: Bowel Sounds Present, Soft, Non Tender Extremities: No edema, Capillary Refill Less than 3 Seconds Skin: No rashes, No breakdown Musculoskeletal: No Tenderness to Palpation of Joints or Extremities Neurological: Cranial nerves II-XII grossly intact Psych/Mental Status: Normal Affect, Appropriate Vital Signs Temp Pulse Resp BP Pulse Ox 97.8 F 76 18 117/71 91 06/04/18 08:43 06/04/18 14:03 06/04/18 13:35 06/04/18 13:35 06/04/18 13:35 Oxygen Flow Rate (L/min) 4 Oxygen Delivery Method Nasal Cannula Weight: 119.476 kg Body Mass Index (BMI) 48.9 Intake and Output for Last 24 Hours 06/02/18 06/03/18 06/04/18 23:59 23:59 23:59 Intake Total 560 / 560 1100 / 1100 1280 / 1280 Output Total 2 / 2 Balance 558 / 558 1100 / 1100 1280 / 1280 Microbiology Past 72 Hours 06/04/18 01:45 Respiratory Panel (PCR) - Final Mucosa - Nasopharyngeal Laboratory Tests Past 24 Hrs 06/04/18 06/04/18 06/04/18 05:15 05:15 05:15 WBC 6.9 RBC 2.89 L Hgb 7.8 L Hct 26.3 L MCV 91.0 MCH 27.0 MCHC 29.7 L RDW 14.5 RDW Differential 46.4 H Plt Count 309 MPV 12.5 H Sodium 139 Potassium 4.9 Chloride 105 Carbon Dioxide 27.0 Anion Gap 7 BUN 44 H Creatinine 2.41 H Estim Creat Clear Calc 20.61 Est GFR (MDRD) Af Amer 27 L Est GFR (MDRD) Non-Af 22 L BUN/Creatinine Ratio 18.3 Glucose 129 H Calcium 8.3 L Iron TIBC Iron Saturation B-Natriuretic Peptide 209.5 H 06/04/18 05:30 WBC RBC Hgb Hct MCV MCH MCHC RDW RDW Differential Plt Count MPV Sodium Potassium Chloride Carbon Dioxide Anion Gap BUN Creatinine Estim Creat Clear Calc Est GFR (MDRD) Af Amer Est GFR (MDRD) Non-Af BUN/Creatinine Ratio Glucose Calcium Iron 24 L TIBC 208 L Iron Saturation 11.5 L B-Natriuretic Peptide POC Glucose 06/04/18 06/04/18 06/04/18 11:24 06:57 03:00 POC Glucose 184 H 122 H 141 H 06/03/18 06/03/18 21:37 16:37 POC Glucose 177 H 204 H Medical Necessity - Tobacco Use Smoking Status: Former smoker Assessment/Plan All Active Problems Acute kidney injury (Acute) Acute renal injury due to circulatory failure (Acute) Acute decompensated heart failure (Acute) CARYN CKD stage 3 Baseline creatinine was around 1.8. sustained CARYN in setting of diuresis creatinine is now down to 2.4 again overnight went into fluid overload and had to be started back on lasix. clinically better now she will likely need to stay on some diuretics and accept higher creatinine levels plan is for her to go to [place] in [facility] will need follow up once she gets there
[2018-06-04 16:45] LABS: Bedside Glucose 202 mg/dL (70-110)
[2018-06-04 20:20] LABS: Bedside Glucose 199 mg/dL (70-110)
[2018-06-04] MEDS: Senna/Docusate Sodium 1 Tablet 2 TABLET PO (20:23)
[2018-06-04] MEDS: Furosemide 20 MG Tablet PO (20:24)
[2018-06-04] MEDS: Atorvastatin Calcium 40 MG Tablet PO (20:25)
[2018-06-05] VITALS (11 sets, daily range): BP systolic 130–146; BP diastolic 61–74; PULSE 67–79; RESP 18–24; TEMP 36.6–36.9; O2SAT 90–94; BMI 48.9
[2018-06-05 02:21] LABS: Bedside Glucose 181 mg/dL (70-110)
[2018-06-05] MEDS: Insulin Lispro 100 UNIT/ML INSULN.PEN SC ×5 (02:24→21:34)
[2018-06-05] MEDS: Ipratropium/Albuterol Sulfate 3 ML AMPUL.NEB INHALATION ×5 (03:34→23:36)
[2018-06-05] MEDS: hydrALAZINE 50 MG Tablet PO ×3 (05:38→21:33)
[2018-06-05] MEDS: Nystatin Powder 15gm Bottle 1 APPLIC TOPICAL ×3 (05:43→21:37)
[2018-06-05] MEDS: Menthol/Lanolin/Calamine/Znox 113 GM Tube 1 APPLIC TOPICAL ×3 (05:43→21:36)
[2018-06-05 07:05] LABS: Bedside Glucose 157 mg/dL (70-110)
[2018-06-05] MEDS: Gabapentin 100 MG Capsule PO ×3 (07:05→16:52)
[2018-06-05] MEDS: Senna/Docusate Sodium 1 Tablet 2 TABLET PO ×2 (07:05→21:35)
[2018-06-05] MEDS: Metoprolol(XL)Succ 100 MG Tablet PO (07:05)
[2018-06-05] MEDS: Furosemide 20 MG Tablet PO ×2 (07:05→17:18)
[2018-06-05] MEDS: NYSTATIN 500,000 UNIT/5 ML UDC 500000 UNIT PO ×4 (07:05→21:35)
[2018-06-05] MEDS: amLODIPine 10 MG Tablet PO (07:05)
[2018-06-05] MEDS: APIXABAN 5 MG TABLET PO ×2 (07:05→21:33)
[2018-06-05] MEDS: DULoxetine Hcl 60 MG Capsule PO (07:06)
[2018-06-05] MEDS: Pantoprazole Sodium 20 MG Tablet PO (07:09)
[2018-06-05] MEDS: Glucerna Shake 120 ML LIQUID PO ×3 (07:10→17:19)
[2018-06-05] MEDS: 0.9% NaCl Peripheral Flush Adult/Peds IV (07:26)
[2018-06-05 09:45] LABS: Absolute Lymphocyte Count 0.91 X10^3/ul (0.83-4.51); Absolute Neutrophil Count 4.5 X10^3/uL (2.0-7.7); Basophil# 0.03 X10^3/uL; Basophil% 0.5 % (0-1); Eosinophils% 10.5 % (0-5); Lymphocyte # 0.91 X10^3/ul (4.0); Lymphocyte % 13.7 % (19-41); Mean Corp Hgb Conc 30.8 g/gl (32-36); Mean Corpuscular Hgb 27.1 pg (27.0-32.0); Mean Corpuscular Volume 88.1 fL (81-99); Mean Platelet Vol. 11.7 fl (6.2-12.0); Monocyte# 0.52 X10^3/uL; Monocyte% 7.8 % (0-10); Neutrophil # 4.46 X10^3/uL (2.7-7.7); Neutrophil % 66.9 % (47-70); Platelet Count 332 K/mm3 (150-450); RBC Distribution Width CV 14.8 % (11.6-14.6); RBC Distribution Width SD 47.5 fl (35.1-43.9); Red Blood Count 2.95 M/mm3 (4.2-5.4); White Blood Count 6.7 K/mm3 (4.4-11.0)
[2018-06-05 09:55] LABS: POSITIVE COUNT NO; POSITIVE DIFFERENTIAL NO; POSITIVE MORPHOLOGY NO
[2018-06-05 10:00] LABS: Anion Gap 9 (5-15); BUN 45 mg/dL (7-18); BUN/Creat Ratio 18.4 RATIO (10-20); Calcium,Total 8.2 mg/dL (8.5-10.1); Chloride 104 mmol/L (98-107); Creatinine, Serum 2.44 mg/dL (0.55-1.02); EST Glomerular Filtration Rate 22 mL/min (>60); Est Glom Filt Rate - Afr Amer 27 mL/min (>60); Estimated Creatinine Clearance 20.35 ml/min; Glucose 217 mg/dL (74-106); Potassium 4.6 mmol/L (3.5-5.1); Sodium Level 137 mmol/L (136-145)
[2018-06-05 11:46] LABS: Bedside Glucose 239 mg/dL (70-110)
--- NOTE | 2018-06-05 14:58 | NURSING ---
patient cooperative and pleasant this shift. patient participated in therapy and now is sitting up in recliner watching tv.
[2018-06-05 16:55] LABS: Bedside Glucose 244 mg/dL (70-110)
[2018-06-05 21:16] LABS: Bedside Glucose 270 mg/dL (70-110)
[2018-06-05] MEDS: Atorvastatin Calcium 40 MG Tablet PO (21:35)
[2018-06-06] VITALS (14 sets, daily range): BP systolic 134–153; BP diastolic 68–77; PULSE 74–85; RESP 16–24; TEMP 36.7–36.8; O2SAT 90–96; BMI 48.9
[2018-06-06] MEDS: Insulin Lispro 100 UNIT/ML INSULN.PEN SC ×5 (03:15→21:13)
[2018-06-06 03:20] LABS: Bedside Glucose 194 mg/dL (70-110)
[2018-06-06] MEDS: Ipratropium/Albuterol Sulfate 3 ML AMPUL.NEB INHALATION ×4 (03:25→19:37)
--- NOTE | 2018-06-06 03:50 | CPS ---
Pt's nasal cannula fell out when asleep. Pulse ox was 79% during this time. Put back on NC and tightened to pts. comfort. Pulse ox rechecked after tx, was 93%. RN aware of event.
[2018-06-06] MEDS: hydrALAZINE 50 MG Tablet PO ×3 (05:20→21:15)
[2018-06-06] MEDS: Nystatin Powder 15gm Bottle 1 APPLIC TOPICAL ×3 (05:21→21:12)
[2018-06-06] MEDS: Menthol/Lanolin/Calamine/Znox 113 GM Tube 1 APPLIC TOPICAL ×3 (05:21→21:15)
[2018-06-06 06:31] LABS: Bedside Glucose 175 mg/dL (70-110)
[2018-06-06] MEDS: NYSTATIN 500,000 UNIT/5 ML UDC 500000 UNIT PO ×4 (07:27→21:12)
[2018-06-06] MEDS: DULoxetine Hcl 60 MG Capsule PO (07:28)
[2018-06-06] MEDS: amLODIPine 10 MG Tablet PO (07:28)
[2018-06-06] MEDS: Furosemide 20 MG Tablet PO ×2 (07:28→17:12)
[2018-06-06] MEDS: Gabapentin 100 MG Capsule PO ×3 (07:28→17:11)
[2018-06-06] MEDS: Metoprolol(XL)Succ 100 MG Tablet PO (07:28)
[2018-06-06] MEDS: Pantoprazole Sodium 20 MG Tablet PO (07:28)
[2018-06-06] MEDS: APIXABAN 5 MG TABLET PO ×2 (07:29→21:14)
[2018-06-06] MEDS: Glucerna Shake 120 ML LIQUID PO ×4 (07:33→21:14)
[2018-06-06] MEDS: 0.9% NaCl Peripheral Flush Adult/Peds IV (07:34)
--- NOTE | 2018-06-06 07:41 | CPS ---
Nursing got patient up to chair at bedside. Patient on 6lpm, sats dropped to 78%. Patient unable to close mouth and deep breathe through nose as requested. Aerosol given, ran off O2, patient quickly randall into 90's. Sats after aerosol at 92% on 6lpm nasal cannula.
[2018-06-06 11:36] LABS: Bedside Glucose 257 mg/dL (70-110)
--- NOTE | 2018-06-06 13:00 | NURSING ---
patient was smiling and talkative with son today while visiting. Sister arrived to visit, but patient did not recognize sister and was asking this nurse and her sister where is my sister. Her sister replied i am your sister. Patient was confused and did not recognize sister. patient sister asked this nurse when patient's memory would improve.
[2018-06-06 16:40] LABS: Bedside Glucose 271 mg/dL (70-110)
--- NOTE | 2018-06-06 20:40 | PCM.PN.HOSP ---
Subjective: Patient was seen and examined. Remains on 4L oxygen. Denies any complains. No acute events. Objective: Physical exam: General: Alert, Oriented x3, Cooperative, No apparent distress, on 4L oxygen, obese HEENT: Atraumatic, PERRLA, EOMI, Normocephalic Oral: Moist Mucosa Neck: Supple Lungs: Normal air movement, Diminished - at the lung bases Cardiovascular: Regular rate, Regular Rhythm, Normal S1, Normal S2, No murmurs Abdomen: Bowel Sounds Present, Soft, Non Tender, Non-Distended, No Hepato-splenomegaly, Obese Extremities: No edema Skin: No rashes, No breakdown Musculoskeletal: No Tenderness to Palpation of Joints or Extremities Lymphatic: No Cervical, Supraclavicular, or Inguinal Adenopathy Neurological: Cranial nerves II-XII grossly intact, Neuro grossly intact Psych/Mental Status: Normal Affect, Appropriate Vitals/I&O's: Vital Signs Temp Pulse Resp BP Pulse Ox 98.2 F 80 16 150/75 H 93 06/06/18 19:11 06/06/18 19:35 06/06/18 19:35 06/06/18 19:11 06/06/18 19:35 Oxygen Flow Rate (L/min) 4 Oxygen Delivery Method Nasal Cannula Weight: 118.8 kg Body Mass Index (BMI) 48.9 Intake and Output for Last 24 Hours 06/04/18 06/05/18 06/07/18 23:59 23:59 00:59 Intake Total 1640 / 1640 1810 / 1810 1320 / 1320 Output Total 400 / 400 Balance 1640 / 1640 1810 / 1810 920 / 920 Microbiology Past 72 Hours 06/04/18 01:45 Mucosa - Nasopharyngeal Respiratory Panel (PCR) - Final Laboratory Results 06/05/18 21:11: POC Glucose 270 H 06/06/18 03:11: POC Glucose 194 H 06/06/18 06:27: POC Glucose 175 H 06/06/18 11:09: POC Glucose 257 H 06/06/18 16:37: POC Glucose 271 H Current Medications Acetaminophen (Tylenol) 650 mg PO Q6H PRN PRN PRN Reason: Mild Pain (0-3/10)/Headache Albuterol Sulfate (Ventolin Aerosols) 2.5 mg INHALATION Q2H PRN PRN PRN Reason: SHORTNESS OF BREATH Albuterol/Ipratropium (Duoneb) 3 ml INHALATION Q4H.RT [facility] Last Admin: 06/06/18 19:37 Dose: 3 ml Amlodipine Besylate (Norvasc) 10 mg PO DAILY [facility] Last Admin: 06/06/18 07:28 Dose: 10 mg Apixaban (Eliquis) 5 mg PO BID [facility] Last Admin: 06/06/18 07:29 Dose: 5 mg Atorvastatin Calcium (Lipitor) 40 mg PO QHS [facility] Last Admin: 06/05/18 21:35 Dose: 40 mg Bisacodyl (Dulcolax) 10 mg RECTAL .PRN X 1 PRN PRN Reason: Constipation Calamine/Phenol (Calmoseptine Ointment) 1 applic TOPICAL TID [facility]; Protocol Last Admin: 06/06/18 13:00 Dose: 1 applicatio Duloxetine HCl (Cymbalta) 60 mg PO DAILY [facility] Last Admin: 06/06/18 07:28 Dose: 60 mg Furosemide (Lasix) 20 mg PO BID@1000,1800 [facility] Last Admin: 06/06/18 17:12 Dose: 20 mg Gabapentin (Neurontin) 100 mg PO TIDCM [facility] Last Admin: 06/06/18 17:11 Dose: 100 mg Hydralazine HCl (Apresoline) 50 mg PO TID [facility] Last Admin: 06/06/18 13:00 Dose: 50 mg Insulin Glargine (Lantus (Bkc)) 10 units SC BID [facility] Last Admin: 06/06/18 07:29 Dose: 10 u Insulin Human Lispro (Humalog Kwikpen (Bkc)) 0 unit SC ACHS & 3AM [facility]; Protocol Last Admin: 06/06/18 17:11 Dose: 6 u Loperamide HCl (Imodium) 2 mg PO Q4H PRN PRN PRN Reason: Diarrhea Last Admin: 05/23/18 07:59 Dose: 2 mg Lorazepam (Ativan) 0.5 mg PO QHS PRN PRN PRN Reason: SLEEP Last Admin: 06/03/18 21:45 Dose: 0.5 mg Metoprolol Succinate (Toprol Xl (Beta Ángela)) 100 mg PO DAILY [facility] Last Admin: 06/06/18 07:28 Dose: 100 mg Nutritional Formula (Lactose Free) (Glucerna Shake) 120 ml PO 4X/DAY [facility] Last Admin: 06/06/18 17:12 Dose: 120 ml Nystatin (Mycostatin Powder) 1 applic TOPICAL TID [facility]; Protocol Last Admin: 06/06/18 12:59 Dose: 1 applicatio Nystatin (Nystatin) 500,000 unit PO 4X/DAY [facility] Last Admin: 06/06/18 17:11 Dose: 500,000 unit Ondansetron HCl (Zofran Odt) 4 mg PO Q8H PRN PRN Reason: NAUSEA Last Admin: 05/26/18 12:56 Dose: 4 mg Pantoprazole Sodium (Protonix) 20 mg PO DAILY [facility] Last Admin: 06/06/18 07:28 Dose: 20 mg Senna/Docusate Sodium (Senokot-S, Brenda-Colace) 2 tablet PO BID [facility] Last Admin: 06/06/18 18:25 Dose: Not Given Sodium Chloride () 5 - 15 ml IV UD PRN PRN Reason: SALINE FLUSH Last Admin: 06/06/18 07:34 Dose: 10 ml Sodium Chloride ([place] Nasal [place]) 1 spray NASAL TID PRN PRN PRN Reason: NASAL DRYNESS Medical Necessity - Tobacco Use Smoking Status: Former smoker Assessment/Plan All Active Problems Acute kidney injury (Acute) Acute renal injury due to circulatory failure (Acute) Acute decompensated heart failure (Acute) 52-year-old with multiple comorbidities including obesity, type II DM, CAD status post stent, hypertension admittred to acute rehab with debility after a stroke. 1. Acute on chronic respiratory insufficiency, on 4 L of oxygen, will continue CHF management, continue to encourage incentive spirometer, continue treatment for CHF 2. Acute on chronic CHF, diastolic, EF 65%/pulmonary hypertension, improved, on po lasix 3. Debility secondary to recent CVA, with multiple comorbidities, undergoing therapy. 4. Acute left soleal DVT on Eliquis BID 5. Acute left posterior, temporal, posterior frontal and parietal lobes CVA, on Eliquis, statin 7. Recent CAP, completed antibiotics 8. CARYN on CKD stage 3, Cr has plateaued at 2.44 9. Hypertension, fairly uncontrolled, continue on amlodipine, metoprolol, hydralazine, will continue to monitor 10. Type 2 DM, blood sugars are controlled, continue on Lantus, insulin sliding scale with accucheks 11. CAD status post stent, on aspirin, statin, metoprolol, lisinopril 12. Morbid obesity, BMI 48.4 13. DVT PPx- Apixaban Code Visit Inpatient E&M: 45304 Subs Hosp L2
[2018-06-06] MEDS: Atorvastatin Calcium 40 MG Tablet PO (21:12)
[2018-06-06 21:36] LABS: Bedside Glucose 301 mg/dL (70-110)
[2018-06-07] VITALS (10 sets, daily range): BP systolic 150–157; BP diastolic 81–87; PULSE 72–92; RESP 16–18; TEMP 36.4–36.7; O2SAT 91–96; BMI 48.9
--- NOTE | 2018-06-07 00:30 | NURSING ---
PT YELLS TEACHER! FROM HER ROOM. PT FOUND TO BE WANTING TO SIT UP TO SIDE OB BED AND IS SHORT OF BREATH. PURSED LIP BREATHING NOTED. NASAL CANNULA IS IN PLACE WITH 4 LPM O2 PER N/C. PULSE OX FOUND TO BE 79-80%. O2 INCREASED TO [address] TEAM MEMBER O2 PER N/C. PT IS ABLE TO TALK AND ANSWER QUESTIONS, BUT RESPIRATORY RATE IS INCREASED. PT ASSISTED TO SITTING IN RECLINER CHAIR WHERE SHE WANTS TO SIT UPRIGHT. PT'S PULSE OX INCREASES TO 91% ON 6 LPM PER N/C. PT WANTS TO WATCH HER TV SHOW. CALL LIGHT IS WITHIN REACH.
--- NOTE | 2018-06-07 01:07 | NURSING ---
CALL PLACED TO RESP THERAPIST AND REQUESTED DUONEB AEROSOL WHILE PT REMAINS AWAKE CURRENTLY IN CHAIR.
[2018-06-07] MEDS: Ipratropium/Albuterol Sulfate 3 ML AMPUL.NEB INHALATION ×3 (01:28→19:50)
[2018-06-07] MEDS: Insulin Lispro 100 UNIT/ML INSULN.PEN SC ×5 (02:39→20:26)
[2018-06-07 02:46] LABS: Bedside Glucose 282 mg/dL (70-110)
[2018-06-07] MEDS: hydrALAZINE 50 MG Tablet PO ×3 (06:51→20:17)
[2018-06-07] MEDS: Nystatin Powder 15gm Bottle 1 APPLIC TOPICAL ×3 (06:52→20:26)
[2018-06-07] MEDS: Menthol/Lanolin/Calamine/Znox 113 GM Tube 1 APPLIC TOPICAL ×3 (06:52→20:16)
[2018-06-07 07:35] LABS: Bedside Glucose 235 mg/dL (70-110)
[2018-06-07] MEDS: Metoprolol(XL)Succ 100 MG Tablet PO (07:44)
[2018-06-07] MEDS: Furosemide 20 MG Tablet PO ×2 (07:45→16:47)
[2018-06-07] MEDS: Pantoprazole Sodium 20 MG Tablet PO (07:45)
[2018-06-07] MEDS: Glucerna Shake 120 ML LIQUID PO ×2 (07:45→16:47)
[2018-06-07] MEDS: Gabapentin 100 MG Capsule PO ×3 (07:45→16:47)
[2018-06-07] MEDS: APIXABAN 5 MG TABLET PO ×2 (07:45→20:17)
[2018-06-07] MEDS: NYSTATIN 500,000 UNIT/5 ML UDC 500000 UNIT PO ×2 (07:45→14:13)
[2018-06-07] MEDS: amLODIPine 10 MG Tablet PO (07:45)
[2018-06-07] MEDS: DULoxetine Hcl 60 MG Capsule PO (07:45)
[2018-06-07] MEDS: LORazepam 0.5 MG Tablet PO ×2 (10:00→11:58)
--- NOTE | 2018-06-07 10:08 | CASEMGMT ---
Social Work Patient becoming agitated while in the therapy room. Patient yelling out stating I want to go home with my sister. This social service coordinator communicating to patient that patient sister would not be able to currently meet patient needs as patient sister is working and patient would need 24hr care. Team is not recommending for patient to discharge to home to the community. Patient asking to speak with patient sister on T.V. This social service coordinator attempting to clarify with patient, patient perseverating on wanting to go home with sister and wanting to speak with brother to have brother provide transportation home for patient. This social service coordinator inquiring if patient is referring to son, Fredrick when patient states brother as Speech therapy is reporting that patient often states brother when patient means son. Patient not speaking to this social workers question and going back to perseverating on going home with sister. Staff reporting that patient Stephy zuniga was in over the weekend and that patient was worked up most of the weekend due to June's visits and conversations Stephy was having with patient. This social service coordinator was able to have patient calm down in order for this social service coordinator to go and call the shelter and Fredrick. This social service coordinator collaborating with Speech Therapy on best way to communicate with patient. Speech Therapy recommending writing two options on a piece of paper and that patient appears to responds decent to this form of communication as Speech Therapy is reporting that patient continues to mix up Yes and No and will often mean No when stating Yes. As patient is currently calmly sitting in therapy room this social service coordinator did not return to attempt further communication but will attempt recommendations by Speech Therapy after speaking with Fredrick and Riya. Telephone call to Patti Ritter. This social service coordinator leaving voicemail for Patti requesting a return phone call. Telephone call to misha Alcala left requesting for a return phone call. Collaborating further with staff. Staff to let this social service coordinator know if patient becomes agitated again. Will continue to follow. HUA Roca
--- NOTE | 2018-06-07 11:19 | CASEMGMT ---
Social Work Telephone call from Patti Ritter. Patti voicing to not have an opening at this time and to be unable to accept patient. Telephone call to [facility] , as this is second choice. Spoke with Marilyn. Marilyn reporting to be able to review clinical information. Clinical information faxed to [phone]. Pending approval at this time. Have not heard back from Fredrick at this time. Spoke with nursing staff, patient is now in bed. Will continue to follow. Maribeth NGUYEN, HUA
[2018-06-07 11:31] LABS: Bedside Glucose 293 mg/dL (70-110)
--- NOTE | 2018-06-07 11:52 | CASEMGMT ---
Social Work Attempted to speak with patient in room. Patient currently resting in bed and nursing staff reporting that patient is now calmer. Nursing staff to keep this case management social worker updated on patient status. Nursing staff also reporting that over the weekend when patient sister, Stephy was in to see patient that patient did not recognize June and in turn Stephy became frustrated with this. Nursing staff reporting that patient son was in this weekend and that patient has a positive encounter with patient son. Will continue to follow as needed. Maribeth Hutton MSW, HUA
--- NOTE | 2018-06-07 13:16 | PCM.PN.NEU ---
Subjective: No issues overnight. This morning patient wanted to go home and was agitated, emotional and wanted the sister to be called to take her home right away, patient was given Ativan and plan is to discharge her to the NH. - Physical Exam General: Alert HEENT: Normocephalic Neck: Supple Lungs: Normal air movement Cardiovascular: Normal S1, Normal S2 Abdomen: Bowel Sounds Present Extremities: No cyanosis Neurological: - - consious, awake, CN 2-12 grossly intact, has receptive aphasia though improving, comprehension is somewhat impaired, power 5/5 all 4 extremities, denies any sensory loss, no cerebellar signs, Reflexes + B/L B/S/T/K/A, gait deferred, NIHSS 2 at present. Vital Signs Temp Pulse Resp BP Pulse Ox 97.5 F L 79 18 157/87 H 91 06/07/18 07:38 06/07/18 11:22 06/07/18 11:22 06/07/18 07:38 06/07/18 11:22 Oxygen Flow Rate (L/min) 3 Oxygen Delivery Method Nasal Cannula Weight: 116.5 kg Body Mass Index (BMI) 48.9 Intake and Output for Last 24 Hours 06/05/18 06/06/18 06/07/18 22:59 23:59 23:59 Intake Total 340 / 340 Output Total Balance 340 / 340 Microbiology Past 72 Hours 06/04/18 01:45 Respiratory Panel (PCR) - Final Mucosa - Nasopharyngeal POC Glucose 06/07/18 06/07/18 06/07/18 11:26 07:34 02:38 POC Glucose 293 H 235 H 282 H 06/06/18 06/06/18 21:10 16:37 POC Glucose 301 H 271 H Medical Necessity - Tobacco Use Smoking Status: Former smoker Assessment/Plan All Active Problems Acute kidney injury (Acute) Acute renal injury due to circulatory failure (Acute) Acute decompensated heart failure (Acute) 52 yr F with PMH HTN, HLD, DM, CAD s/p stents, Diastolic CHF, CKD, ISRRAEL, recent h/o abdominal wall cellulitis, obesity, admitted to [facility] on 05/21/18, with debility s/p acute left MCA stroke, for > 3 hrs therapy daily, with a goal of returning home at or near her prior level of functional independence. MRI brain reported to show large Left MCA stroke, MRA head/neck- no hemodynamically significant stenosis or occlusion. TTE-EF 60%, normal LA size, no PFO. LDL-63, Yvs2y-30.2. On Eliquis for acute DVT in left soleus vein. On Statins. Plan -PT for gait stability -OT for ADLs -ST for aphasia -Analgesics per protocol -Bowel protocol -Acute on Chronic Diastolic CHF- re-started on Lasix 20 mg PO BID, on 4 L oxygen -Acute large Left MCA stroke-was on ASA and Plavix but was later found to have acute left soleal DVT and was started on Eliquis by hospitalist following which ASA/Plavix was held due to bleeding risk given the large left MCA stroke. 30 day event recorder on discharge. Repeat CT head 05/26/18-stable -Acute DVT- found to have acute left soleal DVT since admission to rehab unit, started on Eliquis by hospitalist. V/Q scan lung-low probability of PE. -HTN- goal BP < 130/80 mmHg. On Amlodipine, hydralazine and Metoprolol -HLD-on Lipitor 40 mg PO q hs. -DM- on Insulin -DM Neuropathy- on Gabapentin 100 mg PO TID and Cymbalta 60 mg PO once daily -CAD s/p stents and Diastolic CHF- on Lasix and metoprolol -COPD- on Albuterol and oxygen -CKD-Creatinine 2.41- Nephrology following. Recommendations followed. Nephrology concerned about possible ILD, needs Pulmonology consult as outpatient -Continues to have Skin tears of the anterior abdominal wall but improving per nurse, wound nurse consult, on nystatin, topical wound preparation. Lynn removed 05/25/2018. Voiding appropriately since then. May have incontinence too -Hospitalist consult -Further medical management per hospitalist recommendations -Fall precautions -GI/DVT prophylaxis- Protonix/On Eliquis -Follow up with PCP, Neurology, Cardiology, Pulmonology and Nephrology on discharge
--- NOTE | 2018-06-07 13:54 | TREXTCAR_ITS ---
- Diet 05/22/18 16:28 Diet: Cardiac: Calorie-Controlled Food consistency:: Mechanical Soft/Ground Liquid Consistency:: Regular/Thin Dietary Modifications:: Mechanical Soft Diet Is pt able to select menu?: No Diet Comments: Supervision; no straws; seated in chair for all intake; meds w/ liquids x1 How many daily calories?: 1800 calorie - Wound(s) groin Wound Type: excoriation nose Wound Type: Abrasion Left breast Wound Type: wound LUQ distal abdomen Wound Type: wound LUQ proximal abdomen Wound Type: wound LLQ proximal abdomen Wound Type: OPEN BLISTER LLQ distal abdomen Wound Type: wound Pubic medial Wound Type: ULCER pubic rt distal Wound Type: ULCER - Therapies Weight Bearing: Weight bearing as tolerated - Allergies/Procedures Done in Hospital Allergies/Adverse Reactions: Allergies No Known Allergies Allergy (Verified 05/18/18 18:45) - Type of Care/Length of Stay Estimated LOS: More Than 30 Days Type of Care Needed: Skilled Rehab Potential: Fair Prognosis: Fair - Additional Orders/Day of Discharge Day of Discharge: 06/10/18 - Dietary and Speech Recommendations Dietitian Recommendations/Changes: Recommend continue 1600 heather controlled/car diac diet food/liquid consistency per COMPUTER CONSULTANT. Recommend continue ONS at medpass to provide extra nutrition if consumed. - Follow Up Care Primary Care Physician: Care Physician,No Primary [Primary Care Provider] - Please follow up with your Primary Care Physician in: Follow up with PCP in 1-2 weeks Please Follow Up With: Bobby Irizarry DO When: Follow up with Pulmonology 1-2 weeks to R/O ILD When: Follow up with Nephrology in 1-2 weeks When: Follow up with Neurology in 1-2 weeks When: Needs 30 day event recorder
[2018-06-07] MEDS: Haloperidol Lactate 10 MG/5 ML UDC PO (14:15)
[2018-06-07] MEDS: Haloperidol Lactate 5 MG/ML Vial 2 MG IM (14:34)
--- NOTE | 2018-06-07 14:58 | NURSING ---
patient upset after sister June calling multiple times. patient is a/o self only and states that her sister is coming to take her home with her sister and she needs to sign paperwork for her sister. attempted to reorient about rehab and patient is upset and tearful, ineffective prn haldol given to help decrease anxiousness and tearfulness.
--- NOTE | 2018-06-07 15:54 | NURSING ---
patient assisted to sit up in chair and cooperative, hi effective. patient resting in chair at this time.
--- NOTE | 2018-06-07 16:31 | CASEMGMT ---
Social Work Telephone call from Marilyn at [facility]. Marilyn reporting to have received clinical information and to be reviewing case at this time. Marilyn plans to get back to this social worker school first thing tomorrow morning. Maribeth Hutton MSW, HUA
[2018-06-07 17:00] LABS: Bedside Glucose 194 mg/dL (70-110)
[2018-06-07] MEDS: QUEtiapine 25 MG Tablet PO (17:09)
--- NOTE | 2018-06-07 18:34 | NURSING ---
Son Fredrick given update on mothers condition today.
[2018-06-07 20:00] LABS: Allen Test POS; Base Excess 4 mmol/L (-2 to +2); Bicarbonate 29.5 mmol/L (22-26); Blood Gas Specimen Type ART; O2 Delivery Device Nasal Can; PO2 68 mmHG (75-100); SITE R Radial; SO2 92 % (95-99); Total Carbon Dioxide 31 mmol/L; pCO2 51.2 mmHg (35-45); pH 7.37 (7.35-7.45)
[2018-06-07] MEDS: Atorvastatin Calcium 40 MG Tablet PO (20:18)
[2018-06-07 20:25] LABS: Bedside Glucose 160 mg/dL (70-110)
--- NOTE | 2018-06-07 21:53 | NURSING ---
patient resting quietly in bed with eyes closed. patient awakens easily, in no acute distress.
[2018-06-08] VITALS (8 sets, daily range): BP systolic 133–150; BP diastolic 62–70; PULSE 72–82; RESP 16–18; TEMP 36.8; O2SAT 92–97; BMI 48.9
[2018-06-08 02:16] LABS: Bedside Glucose 133 mg/dL (70-110)
[2018-06-08] MEDS: hydrALAZINE 50 MG Tablet PO ×2 (05:36→12:23)
[2018-06-08] MEDS: Menthol/Lanolin/Calamine/Znox 113 GM Tube 1 APPLIC TOPICAL ×3 (05:37→19:45)
[2018-06-08] MEDS: Nystatin Powder 15gm Bottle 1 APPLIC TOPICAL ×3 (05:37→19:46)
[2018-06-08 06:42] LABS: Anion Gap 9 (5-15); BUN 36 mg/dL (7-18); BUN/Creat Ratio 16.7 RATIO (10-20); Calcium,Total 8.1 mg/dL (8.5-10.1); Chloride 106 mmol/L (98-107); Creatinine, Serum 2.16 mg/dL (0.55-1.02); EST Glomerular Filtration Rate 25 mL/min (>60); Est Glom Filt Rate - Afr Amer 31 mL/min (>60); Estimated Creatinine Clearance 22.99 ml/min; Glucose 123 mg/dL (74-106); Potassium 4.4 mmol/L (3.5-5.1); Sodium Level 143 mmol/L (136-145)
[2018-06-08 06:45] LABS: Bedside Glucose 119 mg/dL (70-110)
[2018-06-08] MEDS: Glucerna Shake 120 ML LIQUID PO ×2 (08:12→19:45)
[2018-06-08] MEDS: DULoxetine Hcl 60 MG Capsule PO (08:13)
[2018-06-08] MEDS: Senna/Docusate Sodium 1 Tablet 2 TABLET PO ×2 (08:13→19:44)
[2018-06-08] MEDS: QUEtiapine 25 MG Tablet PO ×2 (08:13→21:49)
[2018-06-08] MEDS: APIXABAN 5 MG TABLET PO ×2 (08:13→19:45)
[2018-06-08] MEDS: NYSTATIN 500,000 UNIT/5 ML UDC 500000 UNIT PO ×4 (08:13→19:46)
[2018-06-08] MEDS: Pantoprazole Sodium 20 MG Tablet PO (08:13)
[2018-06-08] MEDS: Furosemide 20 MG Tablet PO ×2 (08:13→16:55)
[2018-06-08] MEDS: Gabapentin 100 MG Capsule PO ×3 (08:14→16:55)
[2018-06-08] MEDS: Metoprolol(XL)Succ 100 MG Tablet PO (08:15)
[2018-06-08] MEDS: amLODIPine 10 MG Tablet PO (08:17)
[2018-06-08 11:56] LABS: Bedside Glucose 224 mg/dL (70-110)
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
[2018-06-08] MEDS: Insulin Lispro 100 UNIT/ML INSULN.PEN SC ×3 (12:23→21:48)
--- NOTE | 2018-06-08 13:57 | PCM.PN.REN ---
Subjective: Patient denies nausea vomiting or shortness of breath - Physical Exam General: Alert, Oriented x3 HEENT: Atraumatic Oral: Moist Mucosa Neck: Supple, No JVD Lungs: Rhonchi Cardiovascular: Regular rate, Regular Rhythm, Normal S1, Normal S2 Abdomen: Bowel Sounds Present, Soft, Non Tender, Non-Distended Extremities: No clubbing, No cyanosis, Edema - +2 edema of lower extremities Musculoskeletal: No Tenderness to Palpation of Joints or Extremities, No Muscle Wasting Lymphatic: No Cervical, Supraclavicular, or Inguinal Adenopathy Neurological: Cranial nerves II-XII grossly intact, Neuro grossly intact Psych/Mental Status: Appropriate Vital Signs Temp Pulse Resp BP Pulse Ox 98.2 F 72 16 133/62 H 95 06/08/18 07:23 06/08/18 12:23 06/08/18 07:23 06/08/18 08:15 06/08/18 10:50 Oxygen Flow Rate (L/min) 3 Oxygen Delivery Method Nasal Cannula Weight: 115.8 kg Body Mass Index (BMI) 48.9 Intake and Output for Last 24 Hours 06/06/18 06/07/18 06/08/18 23:59 23:59 23:59 Intake Total 980 / 980 220 / 220 Output Total 500 / 500 Balance 480 / 480 220 / 220 Laboratory Tests Past 24 Hrs 06/07/18 06/08/18 19:54 05:15 Specimen Type ART Sample Site R Radial pH 7.37 Bicarbonate Actual 29.5 H POC Total CO2 31 Base Excess 4 H O2 Saturation 92 L ABG pCO2 51.2 H ABG pO2 68 L Lalito Test POS O2 Delivery Device Nasal Can Liter Flow 4.0 Blood Gas Notified Whom HOSP Sodium 143 Potassium 4.4 Chloride 106 Carbon Dioxide 28.0 Anion Gap 9 BUN 36 H Creatinine 2.16 H Estim Creat Clear Calc 22.99 Est GFR (MDRD) Af Amer 31 L Est GFR (MDRD) Non-Af 25 L BUN/Creatinine Ratio 16.7 Glucose 123 H Calcium 8.1 L POC Glucose 06/08/18 06/08/18 06/08/18 11:53 06:35 02:07 POC Glucose 224 H 119 H 133 H 06/07/18 06/07/18 20:20 16:50 POC Glucose 160 H 194 H Medical Necessity - Tobacco Use Smoking Status: Former smoker Assessment/Plan All Active Problems Acute kidney injury (Acute) Acute renal injury due to circulatory failure (Acute) Acute decompensated heart failure (Acute) CARYN on CKD stage 3 .Baseline creatinine is around 1.8. CKD is most probably diabetic nephropathy. Acute kidney injury might be related to prerenal from dehydration. Improved with stopping Lasix and IV fluid blood but Lasix had to be started again due to worsening respiratory status. Currently the patient is taking 20 mg twice a day of Lasix. Creatinine continues to improve. Last creatinine trend 2.4-> 2.16 mg a deciliter. I am okay to continue same dose of diuretics. Monitor renal function panel twice weekly Please avoid TAYLOR inhibitor/ARB.avoid IV contrast exposure Hypertension: Blood pressures well controlled. I will DC amlodipine due to leg edema. I will increase hydralazine to 100 mg 3 times a day Renal team will continue to follow. Please call with any question or concern. Mayra Parekh MD [phone]
--- NOTE | 2018-06-08 14:58 | PCM.PN.NEU ---
Subjective: No issues overnight. Care discussed with the nursing staff. Patient started on Seroquel 25 mg p.o. twice daily by the hospitalist. Tolerating medication well. Seen by lacquer maker. Consult appreciated. Amlodipine was discontinued by nephrology due to leg edema. Hydralazine increased to 100 mg p.o. 3 times daily. Creatinine stable at 2.16. - Physical Exam General: Alert HEENT: Normocephalic Neck: Supple Lungs: Normal air movement Cardiovascular: Normal S1, Normal S2 Abdomen: Bowel Sounds Present Extremities: No cyanosis Neurological: - - consious, awake, CN 2-12 grossly intact, has receptive aphasia though improving, comprehension is somewhat impaired, power 5/5 all 4 extremities, denies any sensory loss, no cerebellar signs, Reflexes + B/L B/S/T/K/A, gait deferred, NIHSS 1 at present. Psych/Mental Status: Normal Affect Vital Signs Temp Pulse Resp BP Pulse Ox 98.2 F 72 16 133/62 H 95 06/08/18 07:23 06/08/18 12:23 06/08/18 07:23 06/08/18 08:15 06/08/18 10:50 Oxygen Flow Rate (L/min) 4 Oxygen Delivery Method Nasal Cannula Weight: 115.8 kg Body Mass Index (BMI) 48.9 Intake and Output for Last 24 Hours 06/06/18 06/07/18 06/08/18 23:59 23:59 23:59 Intake Total 980 / 980 660 / 660 Output Total 500 / 500 300 / 300 Balance 480 / 480 360 / 360 Laboratory Tests Past 24 Hrs 06/07/18 06/08/18 19:54 05:15 Specimen Type ART Sample Site R Radial pH 7.37 Bicarbonate Actual 29.5 H POC Total CO2 31 Base Excess 4 H O2 Saturation 92 L ABG pCO2 51.2 H ABG pO2 68 L Lalito Test POS O2 Delivery Device Nasal Can Liter Flow 4.0 Blood Gas Notified Whom HOSP Sodium 143 Potassium 4.4 Chloride 106 Carbon Dioxide 28.0 Anion Gap 9 BUN 36 H Creatinine 2.16 H Estim Creat Clear Calc 22.99 Est GFR (MDRD) Af Amer 31 L Est GFR (MDRD) Non-Af 25 L BUN/Creatinine Ratio 16.7 Glucose 123 H Calcium 8.1 L POC Glucose 06/08/18 06/08/18 06/08/18 11:53 06:35 02:07 POC Glucose 224 H 119 H 133 H 06/07/18 06/07/18 20:20 16:50 POC Glucose 160 H 194 H Medical Necessity - Tobacco Use Smoking Status: Former smoker Assessment/Plan All Active Problems Acute kidney injury (Acute) Acute renal injury due to circulatory failure (Acute) Acute decompensated heart failure (Acute) 52 yr F with PMH HTN, HLD, DM, CAD s/p stents, Diastolic CHF, CKD, ISRRA[place], recent h/o abdominal wall cellulitis, obesity, admitted to [facility] on 05/21/18, with debility s/p acute left MCA stroke, for > 3 hrs therapy daily, with a goal of returning home at or near her prior level of functional independence. MRI brain reported to show large Left MCA stroke, MRA head/neck- no hemodynamically significant stenosis or occlusion. TTE-EF 60%, normal LA size, no PFO. LDL-63, Mpc2c-68.2. On Eliquis for acute DVT in left soleus vein. On Statins. Plan -PT for gait stability -OT for ADLs -ST for aphasia -Analgesics per protocol -Bowel protocol -Acute on Chronic Diastolic CHF- re-started on Lasix 20 mg PO BID, on 4 L oxygen -Acute large Left MCA stroke-was on ASA and Plavix but was later found to have acute left soleal DVT and was started on Eliquis by hospitalist following which ASA/Plavix was held due to bleeding risk given the large left MCA stroke. 30 day event recorder on discharge. Repeat CT head 05/26/18-stable -Acute DVT- found to have acute left soleal DVT since admission to rehab unit, started on Eliquis by hospitalist. V/Q scan lung-low probability of PE. -HTN- goal BP < 130/80 mmHg. On hydralazine and Metoprolol -HLD-on Lipitor 40 mg PO q hs. -DM- on Insulin -DM Neuropathy- on Gabapentin 100 mg PO TID and Cymbalta 60 mg PO once daily -CAD s/p stents and Diastolic CHF- on Lasix and metoprolol -COPD- on Albuterol and oxygen -CKD-Creatinine 2.41- Nephrology following. Recommendations followed. Nephrology concerned about possible ILD, needs Pulmonology consult as outpatient -Continues to have Skin tears of the anterior abdominal wall but improving per nurse, wound nurse consult, on nystatin, topical wound preparation. Lynn removed 05/25/2018. Voiding appropriately since then. May have incontinence too -Started on Seroquel by hospitalist for agitation. Tolerating medication well. no further agitation. -Hospitalist consult -Further medical management per hospitalist recommendations -Fall precautions -GI/DVT prophylaxis- Protonix/On Eliquis -Follow up with PCP, Neurology, Cardiology, Pulmonology and Nephrology on discharge
--- NOTE | 2018-06-08 16:07 | CASEMGMT ---
Social Work Telephone call from Marilyn at [facility], Marilyn reporting to be able to accept patient but probably not until 06/10/18 as there needs to be a bed to open up first. Current plan is to tentatively plan on discharge to [facility] on 06/10/18 pending Marilyn confirming to have a bed open. Telephone call to Fredrick, This outreach and education social worker communicating above information. Fredrick agreeable to plan and aware that plan will be to make referral to third option of long term ([facility]) by noon tomorrow if it is not confirmed that [facility] can accept. Telephone call to [facility], transportation set up for 8:00am on 06/10/18 in the event that all above is approved. Wanted to get transportation set up due to distance of trip. Proposed discharge date: 06/10/18 PLAN: Discharge to [facility], pending approval under skilled care. Maribeth NGUYEN, HUA
[2018-06-08 16:35] LABS: Bedside Glucose 218 mg/dL (70-110)
[2018-06-08] MEDS: hydrALAZINE 50 MG Tablet 100 MG PO (19:44)
[2018-06-08] MEDS: Atorvastatin Calcium 40 MG Tablet PO (19:44)
[2018-06-08] MEDS: Ipratropium/Albuterol Sulfate 3 ML AMPUL.NEB INHALATION (20:05)
[2018-06-08 22:01] LABS: Bedside Glucose 186 mg/dL (70-110)
[2018-06-09] VITALS (12 sets, daily range): BP systolic 132–152; BP diastolic 61–74; PULSE 76–85; RESP 16–20; TEMP 36.7; O2SAT 90–96; BMI 48.9
[2018-06-09 02:21] LABS: Bedside Glucose 139 mg/dL (70-110)
[2018-06-09] MEDS: hydrALAZINE 50 MG Tablet 100 MG PO ×3 (05:11→22:00)
[2018-06-09] MEDS: Nystatin Powder 15gm Bottle 1 APPLIC TOPICAL ×3 (05:12→22:00)
[2018-06-09] MEDS: Menthol/Lanolin/Calamine/Znox 113 GM Tube 1 APPLIC TOPICAL ×3 (05:12→22:00)
[2018-06-09] MEDS: Ipratropium/Albuterol Sulfate 3 ML AMPUL.NEB INHALATION ×3 (06:34→23:30)
[2018-06-09 06:36] LABS: Bedside Glucose 140 mg/dL (70-110)
[2018-06-09] MEDS: Metoprolol(XL)Succ 100 MG Tablet PO (07:29)
[2018-06-09] MEDS: Pantoprazole Sodium 20 MG Tablet PO (07:29)
[2018-06-09] MEDS: QUEtiapine 25 MG Tablet PO ×2 (07:29→22:00)
[2018-06-09] MEDS: DULoxetine Hcl 60 MG Capsule PO (07:30)
[2018-06-09] MEDS: NYSTATIN 500,000 UNIT/5 ML UDC 500000 UNIT PO ×4 (07:30→22:00)
[2018-06-09] MEDS: Furosemide 20 MG Tablet PO ×2 (07:30→17:10)
[2018-06-09] MEDS: APIXABAN 5 MG TABLET PO ×2 (07:30→22:00)
[2018-06-09] MEDS: Gabapentin 100 MG Capsule PO ×3 (07:30→17:10)
[2018-06-09] MEDS: Glucerna Shake 120 ML LIQUID PO ×4 (07:34→22:00)
[2018-06-09] MEDS: Haloperidol Lactate 10 MG/5 ML UDC PO ×2 (09:57→17:09)
[2018-06-09] MEDS: Insulin Lispro 100 UNIT/ML INSULN.PEN SC ×3 (11:29→22:00)
[2018-06-09 11:30] LABS: Bedside Glucose 249 mg/dL (70-110)
--- NOTE | 2018-06-09 11:36 | CASEMGMT ---
Social Work Have not received official approval from [facility]. Telephone call to [facility] ([phone]), Chaparrita. This social worker psychiatric making referral. Clinical information sent. Chaparrita to get back to this social worker psychiatric. Clinicals faxed to: [phone]. Proposed discharge date: 06/10/18 PLAN: Discharge to SNF. Maribeth NGUYEN, HUA
--- NOTE | 2018-06-09 15:47 | CASEMGMT ---
Addendum entered by Sheron Hutton 06/09/18 15:58: [facility] Contact info: P: [phone]; F: [phone] Original Note: Social Work Telephone call from Marilyn Garr[facility]. Marilyn reporting to be able to accept patient on 06/10/18. This psychosocial rehabilitation counselor communicating that transportation has been set up for 8:00am. Discharge information and PASRR results faxed. Telephone call to Chaparrita Quintero. This psychosocial rehabilitation counselor canceling referral. Telephone call to Fredrick, patient son. This psychosocial rehabilitation counselor communicating above information. Fredrick agreeable to all discharge planning. Patient notified of discharge plan, patient nodding head yes in regards to plan. Proposed discharge date: 06/10/18 PLAN: Discharge to [facility] under skilled services. Maribeth NGUYEN, HUA
[2018-06-09 17:06] LABS: Bedside Glucose 232 mg/dL (70-110)
[2018-06-09 21:21] LABS: Bedside Glucose 279 mg/dL (70-110)
[2018-06-09] MEDS: Atorvastatin Calcium 40 MG Tablet PO (22:00)
[2018-06-09] MEDS: Senna/Docusate Sodium 1 Tablet 2 TABLET PO (22:00)
[2018-06-10 02:50] LABS: Bedside Glucose 228 mg/dL (70-110)
[2018-06-10] MEDS: Insulin Lispro 100 UNIT/ML INSULN.PEN SC ×3 (02:50→11:26)
[2018-06-10 07:05] LABS: Bedside Glucose 218 mg/dL (70-110)
[2018-06-10] MEDS: Nystatin Powder 15gm Bottle 1 APPLIC TOPICAL (07:07)
[2018-06-10] MEDS: Menthol/Lanolin/Calamine/Znox 113 GM Tube 1 APPLIC TOPICAL (07:07)
[2018-06-10 07:09] VITALS: BP 152/83; PULSE 80; RESP 16; TEMP 36.6; O2SAT 91
[2018-06-10 07:10] VITALS: BP 152/83; PULSE 80
[2018-06-10] MEDS: Metoprolol(XL)Succ 100 MG Tablet PO (07:10)
[2018-06-10] MEDS: QUEtiapine 25 MG Tablet PO (07:11)
[2018-06-10] MEDS: NYSTATIN 500,000 UNIT/5 ML UDC 500000 UNIT PO (07:11)
[2018-06-10] MEDS: Senna/Docusate Sodium 1 Tablet 2 TABLET PO (07:11)
[2018-06-10] MEDS: Pantoprazole Sodium 20 MG Tablet PO (07:11)
[2018-06-10] MEDS: APIXABAN 5 MG TABLET PO (07:11)
[2018-06-10 07:12] VITALS: BP 152/83; PULSE 80
[2018-06-10] MEDS: hydrALAZINE 50 MG Tablet 100 MG PO (07:12)
[2018-06-10] MEDS: Gabapentin 100 MG Capsule PO ×2 (07:12→11:26)
[2018-06-10] MEDS: DULoxetine Hcl 60 MG Capsule PO (07:13)
[2018-06-10] MEDS: Furosemide 20 MG Tablet PO (07:19)
[2018-06-10 08:54] VITALS: BP 152/83; PULSE 80; RESP 12; TEMP 36.6; O2SAT 91
[2018-06-10] MEDS: Glucerna Shake 120 ML LIQUID PO (09:39)
--- NOTE | 2018-06-10 10:49 | NURSING ---
This RN called report to Jaclyn jennings [phone]
[2018-06-10 10:50] VITALS: PULSE 78; RESP 18
[2018-06-10] MEDS: Ipratropium/Albuterol Sulfate 3 ML AMPUL.NEB INHALATION (10:50)
[2018-06-10 11:16] LABS: Bedside Glucose 251 mg/dL (70-110)
[2018-06-10 13:12] VITALS: BP 152/83; PULSE 80; RESP 12; TEMP 36.6; O2SAT 91
--- NOTE | 2018-06-10 13:16 | NURSING ---
Pt. sent to SNF with all personal belongings to include credit card in packet, gave info to receiving nurse told her to not release CC but to have locked up in safe.
== END 2018-06-10 13:18 | disposition skilled nursing facility (03) | DRG 56 ==
PROVIDERS: Hospitalist; Internal Medicine; Internal Medicine Nephrology; Psychiatry & Neurology Neurology; Admitting Provider Psychiatry & Neurology Neurology; Referring Provider Psychiatry & Neurology Neurology; Visit Provider Internal Medicine
DX: I69.320 Aphasia following cerebral infarction (principal); G93.41 Metabolic encephalopathy; J96.01 Acute respiratory failure with hypoxia; J18.9 Pneumonia, unspecified organism; I13.0 Hypertensive heart and chronic kidney disease with heart failure and stage 1 through stage 4 chronic kidney disease, or unspecified chronic kidney disease; I50.32 Chronic diastolic (congestive) heart failure; N17.9 Acute kidney failure, unspecified; Z68.42 Body mass index [BMI] 45.0-49.9, adult; I82.492 Acute embolism and thrombosis of other specified deep vein of left lower extremity; E11.22 Type 2 diabetes mellitus with diabetic chronic kidney disease; N18.3 Chronic kidney disease, stage 3 (moderate); L30.4 Erythema intertrigo; I25.10 Atherosclerotic heart disease of native coronary artery without angina pectoris; E66.01 Morbid (severe) obesity due to excess calories; Z71.3 Dietary counseling and surveillance; J44.9 Chronic obstructive pulmonary disease, unspecified; E11.65 Type 2 diabetes mellitus with hyperglycemia; G47.33 Obstructive sleep apnea (adult) (pediatric); E78.5 Hyperlipidemia, unspecified; E11.40 Type 2 diabetes mellitus with diabetic neuropathy, unspecified; Z87.891 Personal history of nicotine dependence
CPT/HCPCS: 36415; 36600; 70450; 71045; 71046; 78582; 80048; 80076; 81001; 82040; 82140; 82803; 82962; 83540; 83550; 83880; 85025; 85027; 86038; 86160; 86225; 86235; 86256; 86803; 87086; 87088; 87340; 87633; 92507; 92523; 92526; 92610; 93970; 94640; 94762; 97110; 97112; 97116; 97162; 97166; 97530; 97535; 97802; 97803; A9540; A9567; J7030; A4216; J1940

== ENCOUNTER 2018-07-15 14:54 | Emergency (ER) | payer MEDICARE, MEDICAID, SELFPAY ==
[2018-06-09 11:02] VITALS: BMI 48.9
[2018-07-15 15:00] VITALS: BP 156/96; PULSE 84; RESP 16; TEMP 36.9; O2SAT 97; BMI 32.9
--- NOTE | 2018-07-15 15:17 | ED.VISSUMM ---
- ER Visit Summary Date of Service: 07/15/18 Chief Complaint: [Concern for self-harm and agitation] History of Present Illness: The patient is a 52 F [presents to the emergency department with complaint of not wanting to live with her sister any longer. Patient is really a difficult historian it is unclear exactly what happened other than believe she got into an argument with her sister. Patient threatened to take her oxygen off apparently which the sister relayed to the primary care physician today who recommended that she be evaluated in the emergency department. Patient states that she has no intention on harming herself. She has no psychiatric history. Patient has had prior stroke and has some difficulty expressing her thoughts. Patient with prior history of CHF, asthma, hypertension, diabetes. Patient denies any recent illness. She denies falls or head injuries. Patient states that she no longer wants to live with her sister but would like to go live with her daughter who lives up in [facility]. She denies any homicidal ideation. She denies any hallucinations. Patient reiterates that she does not want to be in the department.] Physical Examination: [HEENT-PERRLA, EOMI. Cranial nerves II through XII grossly intact. TMs clear. Mucous membranes moist. No adenopathy. Patient with pressured speech and some flight of ideas noted. Cardiovascular-regular rate and rhythm without murmur or ectopy Lungs-clear to auscultation, chest wall stable without crepitus or subcu emphysema Abdomen-normoactive bowel sounds, soft, nontender, no rebound or rigidity, no peritoneal signs. Extremities-intact ?4, normal range of motion, normal pulses, atraumatic] Test Results: [None indicated] Emergency Department Course and Treatment: [Patient was discussed with social services technician in the emergency department who then evaluated the patient and spoke to the patient as well as the patient's sister and the nurse practitioner that referred the patient to the emergency department. Patient is denying suicidality and denying wanting to harm self patient is willing to follow-up with crisis. Sister is comfortable taking patient home with her and patient is willing to go with her. At this point I do not feel she meets criteria for emergent hospitalization.] Treatment Plan: [Follow-up with crisis] Disposition: [Discharged home in stable condition] Impression: [Depression] This note was generated with [employer] Interactive[employer] software. It may contain incorrect words, spelling, and punctuation that were not noted in review of the chart prior to signing ED Disposition - Plan for ED Patient: Referrals: Care Physician,No Primary [Primary Care Provider] -
--- NOTE | 2018-07-15 15:20 | ED.DCSUM_ITS ---
- ER Visit Summary Date of Service: 07/15/18 Chief Complaint: [Concern for self-harm and agitation] History of Present Illness: The patient is a 52 F [presents to the emergency department with complaint of not wanting to live with her sister any longer. Patient is really a difficult historian it is unclear exactly what happened other than believe she got into an argument with her sister. Patient threatened to take her oxygen off apparently which the sister relayed to the primary care physician today who recommended that she be evaluated in the emergency department. Patient states that she has no intention on harming herself. She has no psychiatric history. Patient has had prior stroke and has some difficulty expressing her thoughts. Patient with prior history of CHF, asthma, hypertension, diabetes. Patient denies any recent illness. She denies falls or head injuries. Patient states that she no longer wants to live with her sister but would like to go live with her daughter who lives up in [facility]. She denies any homicidal ideation. She denies any hallucinations. Patient reite rates that she does not want to be in the department.] Physical Examination: [HEENT-PERRLA, EOMI. Cranial nerves II through XII grossly intact. TMs clear. Mucous membranes moist. No adenopathy. Patient with pressured speech and some flight of ideas noted. Cardiovascular-regular rate and rhythm without murmur or ectopy Lungs-clear to auscultation, chest wall stable without crepitus or subcu emphysema Abdomen-normoactive bowel sounds, soft, nontender, no rebound or rigidity, no peritoneal signs. Extremities-intact ?4, normal range of motion, normal pulses, atraumatic] Test Results: [None indicated] Emergency Department Course and Treatment: [Patient was discussed with social sciences lecturer in the emergency department who then evaluated the patient and spoke to the patient as well as the patient's sister and the nurse practitioner that referred the patient to the emergency department. Patient is denying suicidality and denying wanting to harm self patient is willing to follow-up with crisis. Sister is comfortable taking patient home with her and patient is willing to go with her. At this point I do not feel she meets criteria for emergent hospitalization.] Treatment Plan: [Follow-up with crisis] Disposition: [Discharged home in stable condition] Impression: [Depression] This note was generated with Plastioation software. It may contain incorrect words, spelling, and punctuation that were not noted in review of the chart prior to signing ED Disposition - Plan for ED Patient: Referrals: Care Physician,No Primary [Primary Care Provider] -
--- NOTE | 2018-07-15 16:00 | CM.ED ---
Social Work Assessment Referral Date: 07/15/18 Date of Assessment: 07/15/18 Informant: HOME HEALTH VALUE ENGINEER, ELIGIBILITY CONSULTANT-DENISSE FLORES, AND DR. GONZALEZ. Reason for Consult: MENTAL HEALTH/D/C PLANNING Information obtained from: PATIENT, PATIENT'S SISTER, JUNE VASQUEZ ([phone]) HOME HEALTH SW, JOSE AND ELIGIBILITY CONSULTANT-DENISSE FLORES. Living Arrangements: PATIENT LIVES HOME WITH SISTER IN A 1 STORY HOME. DME: ROLLATOR, OXYGEN, TUB BENCH, GRAB BARS Employment/Financial: DISABLED, PATIENT HAS MEDICARE AND MEDICAID. Supports: PATIENT REPORTS GOOD SUPPORT FROM SISTER AND FAMILY. Social/Family Stressors: FROM CHART REVIEW AND ASSESSMENT, MANY SOCIAL DYNAMICS WITH FAMILY. PATIENT VOICED SHE AND SISTER FIGHT AT TIMES, BUT WISHES TO RETURN HOME WITH SISTER, JUNE. PATIENT DOES NOT WANT TO BE PLACED IN A HALF-WAY. DISCUSSED WITH SISTER IN ED WAITING ROOM. SISTER REPORTS PATIENT HAS RECENTLY BEEN MAKING NEGATIVE COMMENTS AND SUICIDAL THREATS. SISTER STATES PATIENT DOES NOT FOLLOW DIET AND CAN BE NON COMPLIANT. Mental Health History: SISTER AND PATIENT DENY ANY PREVIOUS HX OF MENTAL HEALTH. PATIENT DENIES ANY SUICIDAL OR HOMICIDAL IDEATIONS. PATIENT DENIES ANY DEPRESSION/ANXIETY. SISTER BELIEVES PATIENT IS DEPRESSED AND STATES DEPRESSION STARTED AFTER PATIENT'S STROKE. SUPPORT AND EDUCATION PROVIDED ON STROKE AND CORRELATION WITH DEPRESSION. Substance Abuse History: PATIENT AND SISTER DENY ANY HX OF SUBSTANCE ABUSE. Interventions: SOCIAL SERVICE ASSESSMENT [place] SUICIDE RISK ASSESSMENT-PATIENT DENIES ANY SUICIDAL IDEATION, PLAN OR INTENT. CASE CONFERENCE VIA TC WITH HOME HEALTH VALUE ENGINEERJOSE AND ELIGIBILITY CONSULTANT, DENISSE FLORES. [facility] HOME HEALTH NURSE UPDATED ON PLAN FOR D/C HOME. EDUCATION PROVIDED TO PATIENT AND SISTER ON [facility]'S STROKE SUPPORT GROUP. DATE AND TIME OF NEXT MEETING PROVIDED. CRISIS APPOINTMENT SCHEDULED FOR 07/19/18 AT 11AM [facility]. PROVIDED SISTER WITH THE 24 HOUR CRISIS HOTLINE IF NEEDED. Assessment: PATIENT IS A 52 Y/O FEMALE WHO PRESENTS TO ED BY FAMILY VEHICLE FROM 'S OFFICE FOR MENTAL HEALTH EVALUATION. PATIENT SEEN AND ASSESSED BY DR. GONZALEZ. PATIENT DENIES ANY SUICIDAL OR HOMICIDAL IDEATION. THIS WORKER MET WITH BOTH PATIENT AND SISTER SEPARATELY AND TOGETHER. PATIENT CONTINUES TO DENY ANY MENTAL HEALTH, SUICIDAL OR HOMICIDAL THOUGHTS. PATIENT TEARFUL STATING SOCIAL ISSUES WITH DAUGHTER AND FIGHTING WITH SISTER. PATIENT STATING I JUST WANT MY SISTER. PATIENT GAVE PERMISSION FOR THIS WORKER TO SPEAK WITH SISTER. PATIENT ALSO REQUESTING SISTER COME BACK TO ROOM. THIS WORKER MET WITH PATIENT'S SISTER IN ED WAITING ROOM. INTRODUCED ROLE. SISTER STATES PATIENT HAS BEEN MEAN TO HER. SISTER STATES PATIENT HAS BEEN MAKING THREATS OF SELF HARM.. SISTER STATES FRUSTRATION AND FEAR WITH PATIENT'S NON COMPLIANCE WITH DIET AND REPORTS PATIENT DOES NOT WEAR O2 CORRECTLY AT NIGHT. INFORMED PATIENT IS NOT REPORTING ANY SUICIDAL OR HOMICIDAL IDEATIONS TO THIS WORKER OR STAFF. DISCUSSED SAFE D/C PLANNING AND FOLLOW UP WITH CRISIS. SISTER IN AGREEMENT WITH PLAN. THIS WORKER ESCORTED PATIENT'S SISTER BACK TO PATIENT'S ROOM. PATIENT BECAME TEARFUL AT SIGHT OF SISTER AND BEGAN TO APOLOGIZE AND CRY FOR HER SISTER TO COME HERE SO SHE COULD EMBRACE HER SISTER IN A HUG. SISTER STATES ARE YOU GOING TO CONTINUE TO NAME CALL ME. PATIENT VERY APOLOGETIC TO SISTER. SISTER VERBALIZED TO PATIENT HER WISHES FOR PATIENT TO LISTEN AND UNDERSTAND CONCERNS AND NEED TO FOLLOW PROPER DIET, WEAR O2 CORRECTLY AT NIGHT AND TAKE MEDICATIONS. PATIENT IN AGREEMENT. UPDATED PATIENT AND SISTER ON CRISIS FOLLOW UP APPOINTMENT DATE AND TIME AND PROVIDED EDUCATION ON [facility] STROKE SUPPORT GROUP. UPDATED NURSING AND DR. GONZALEZ ON THIS WORKER'S ASSESSMENT THROUGHOUT. PLAN: HOME WITH SISTER AND FOLLOW UP SCHEDULED WITH CRISIS.
--- NOTE | 2018-07-15 16:02 | ED.DEP ---
ED Disposition - Plan for ED Patient: Instructions: ED Depression Referrals: Care Physician,No Primary [Primary Care Provider] - 3-5 Days Additional Instructions: follow up with Crisis center as instructed
== END 2018-07-15 16:29 | disposition home or self-care (01) ==
LOC: ED 15:46
PROVIDERS: Emergency Provider Emergency Medicine
DX: F32.9 Major depressive disorder, single episode, unspecified (principal); J45.909 Unspecified asthma, uncomplicated; E11.9 Type 2 diabetes mellitus without complications; I11.0 Hypertensive heart disease with heart failure; I50.9 Heart failure, unspecified; Z86.73 Personal history of transient ischemic attack (TIA), and cerebral infarction without residual deficits; Z79.4 Long term (current) use of insulin; Z79.02 Long term (current) use of antithrombotics/antiplatelets; Z79.82 Long term (current) use of aspirin; Z79.899 Other long term (current) drug therapy
CPT/HCPCS: 99283

== ENCOUNTER 2018-07-30 09:03 | Emergency (ER) | payer MEDICARE, MEDICAID, SELFPAY ==
[2018-07-30 09:06] VITALS: BP 130/100; PULSE 57; RESP 16; TEMP 36.4; O2SAT 100; BMI 40.0
--- NOTE | 2018-07-30 09:33 | ED.VISSUMM ---
- ER Visit Summary Date of Service: 07/30/18 Chief Complaint: Bilateral leg pain History of Present Illness: The patient is a 52 F who presents with bilateral leg pain. Much of the history is provided by sister as the patient has some expressive aphasia from a prior stroke. She has had previous pain in her legs but this has been worse over the past 3 to 4 days. It is worse in her feet and on the left. It is worse at night. She describes it as throbbing. Patient does have a history of neuropathy. Family is concerned for possible blood clots. Although sister reports prior blood clots on further history she states that she had blood clots in her heart so had to get 5 stents. She does not have a history of DVT. She is on Eliquis. Patient otherwise denies recent complaints such as chest pain shortness of breath nausea vomiting. Physical Examination: Blood pressure 130/100 afebrile heart rate 57 pulse ox 100% on room air No distress Moist mucous membranes Heart regular bradycardia Lungs are clear Abdomen soft Examination of the lower extremities shows no edema no erythema her sensation is intact to light touch she does have some tenderness in the feet I was unable to easily palpate dorsalis pedis pulses but she does have positive Doppler signals bilaterally for dorsalis pedis pulses. Her capillary refill is brisk her motor function is intact Test Results: Labs notable for hemoglobin 10.5, BUN 65 creatinine 2.44. INR 1.1. D-dimer elevated at 1.22. Bilateral venous duplex was obtained which is negative for DVT. Emergency Department Course and Treatment: My clinical suspicion is that the leg pain may be related to neuropathy. I did check laboratory studies for electrolytes and also obtained a d-dimer although my clinical suspicion for DVT is low given her bilateral symptoms and the fact she is already anticoagulated. However d-dimer did come back elevated so venous duplex was obtained as above which is negative. Patient advised to follow-up with her primary care physician. She understands to return for new or worsening symptoms. She was discharged. Treatment Plan: [] Disposition: Discharge Impression: Bilateral leg pain This note was generated with Nuday Gamesation software. It may contain incorrect words, spelling, and punctuation that were not noted in review of the chart prior to signing ED Disposition - Plan for ED Patient: Referrals: Care Physician,No Primary [Primary Care Provider] -
[2018-07-30 10:09] LABS: Absolute Lymphocyte Count 1.01 X10^3/ul (0.83-4.51); Absolute Neutrophil Count 4.5 X10^3/uL (2.0-7.7); Basophil# 0.02 X10^3/uL; Basophil% 0.3 % (0-1); Eosinophils% 3.1 % (0-5); Hematocrit 32.9 % (37-47); Hemoglobin 10.5 g/dl (12.0-15.0); Lymphocyte # 1.01 X10^3/ul (4.0); Lymphocyte % 15.9 % (19-41); Mean Corp Hgb Conc 31.9 g/gl (32-36); Mean Corpuscular Hgb 26.5 pg (27.0-32.0); Mean Corpuscular Volume 83.1 fL (81-99); Mean Platelet Vol. 11.5 fl (6.2-12.0); Monocyte# 0.59 X10^3/uL; Monocyte% 9.3 % (0-10); Neutrophil # 4.53 X10^3/uL (2.7-7.7); Neutrophil % 71.2 % (47-70); POSITIVE COUNT NO; POSITIVE DIFFERENTIAL NO; POSITIVE MORPHOLOGY NO; Platelet Count 210 K/mm3 (150-450); RBC Distribution Width CV 14.3 % (11.6-14.6); RBC Distribution Width SD 43.5 fl (35.1-43.9); Red Blood Count 3.96 M/mm3 (4.2-5.4); White Blood Count 6.4 K/mm3 (4.4-11.0)
[2018-07-30 10:17] LABS: International Normalized Ratio 1.1; Prothrombin Time (Protime)PT. 14.4 SECONDS (11.7-14.9)
[2018-07-30 10:20] LABS: Anion Gap 4 (5-15); BUN 65 mg/dL (7-18); BUN/Creat Ratio 26.6 RATIO (10-20); Calcium,Total 8.4 mg/dL (8.5-10.1); Chloride 101 mmol/L (98-107); Creatinine, Serum 2.44 mg/dL (0.55-1.02); EST Glomerular Filtration Rate 22 mL/min (>60); Est Glom Filt Rate - Afr Amer 27 mL/min (>60); Estimated Creatinine Clearance 21.33 ml/min; Glucose 192 mg/dL (74-106); Potassium 4.2 mmol/L (3.5-5.1); Sodium Level 137 mmol/L (136-145)
[2018-07-30 10:55] LABS: D-Dimer Quantitative (DVT/PE) 1.22 FEU/ug/m (0.27-0.49)
--- NOTE | 2018-07-30 10:55 | VDLE_ITS ---
Reason For Study: ELEVATEDD DIMER RIGHT LEFT GSV is normal. GSV is normal. CFV is compressible, spontaneous, phasic, CFV is compressible, spontaneous, phasic, competent and demonstrates normal competent, and demonstrates normal augmentation. augmentation. FV is compressible, spontaneous, phasic, FV is compressible, spontaneous, phasic, competent and demonstrates normal competent and demonstrates normal augmentation. augmentation. POP V is compressible, spontaneous, phasic, POP V is compressible, spontaneous, phasic, competent and demonstrates normal competent and demonstrates normal augmentation. augmentation. T/P Trunk is compressible. T/P Trunk is compressible. PTV is compressible. PTV is compressible. RT PerV is compressible. LT PerV is compressible. Rouleaux flow visualized bilaterally. Procedure Exam performed portable in ED. A preliminary report was called and/or faxed to ED. Interpretation Summary Deep veins of the lower extremities are bilaterally patent and compressible segmentally. There is no evidence of deep vein thrombosis on either side. Valvular competence appears intact within the proximal deep venous systems bilaterally. The greater saphenous veins appear bilaterally patent and compressible segmentally. Rouleaux flow is noted in the venous system bilaterally. Ordering Physician: Lior Briones Performed By: Tanesha Adkins RDCS, RVT
--- NOTE | 2018-07-30 11:49 | ED.DEP ---
ED Disposition - Plan for ED Patient: Instructions: ED Neuropathy Peripheral Referrals: Care Physician,No Primary [Primary Care Provider] -
[2018-07-30 11:56] VITALS: BP 134/69; PULSE 77; RESP 15; O2SAT 95
== END 2018-07-30 11:57 | disposition home or self-care (01) ==
PROVIDERS: Emergency Provider Emergency Medicine
DX: M79.605 Pain in left leg (principal); M79.604 Pain in right leg; I69.320 Aphasia following cerebral infarction; I63.9 Cerebral infarction, unspecified; G62.9 Polyneuropathy, unspecified; I25.10 Atherosclerotic heart disease of native coronary artery without angina pectoris; K21.9 Gastro-esophageal reflux disease without esophagitis; E11.9 Type 2 diabetes mellitus without complications; I10 Essential (primary) hypertension; Z79.02 Long term (current) use of antithrombotics/antiplatelets
CPT/HCPCS: 36415; 80048; 85025; 85379; 85610; 93970; 99282

== ENCOUNTER 2018-08-04 15:46 | Emergency (ER) | payer MEDICARE, MEDICAID, SELFPAY ==
[2018-08-04 15:47] VITALS: BP 141/92; PULSE 62; RESP 20; O2SAT 95
[2018-08-04 15:48] VITALS: BP 141/92; PULSE 58; RESP 19; TEMP 37.1; O2SAT 97; BMI 32.5
--- NOTE | 2018-08-04 16:00 | CT_ITS ---
STUDY: CT BRAIN WITHOUT CONTRAST REASON FOR EXAM: Female, 52 years old. Confusion, prior CVA RADIATION DOSAGE (If Supplied By Facility): CTDIvol = ( 44.99 ) mGy, DLP = ( 762.36 ) mGycm TECHNIQUE: Transaxial CT imaging of the brain was performed without administration of intravenous contrast material. Individualized dose optimization techniques were used for this CT. COMPARISON: CT head 05/26/2018 FINDINGS: Normal soft tissue structures. Normal calvarium. There is encephalomalacia within the left temporal lobe, posterior left frontal parietal lobes corresponding to prior infarct. There are no acute findings.. There are mild bilateral periventricular hypodensities. Normal brainstem. Normal cerebellum. There is no intracranial hemorrhage. There are no findings of an acute ischemic infarction. Normal visualized paranasal sinuses. CT/Brain/Head without Contrast IMPRESSION: There is encephalomalacia within the left temporal lobe, posterior left frontal parietal lobes corresponding to prior infarct. There are no acute findings Mild small vessel fold deep white matter ischemia Electronically Signed: German Richards, at 17:48 EDT Tel , Service support ,
--- NOTE | 2018-08-04 16:00 | EKG12_ITS ---
Test Reason : CONFUSION Blood Pressure : / mmHG Vent. Rate : 061 BPM Atrial Rate : 061 BPM P-R Int : 218 ms QRS Dur : 086 ms QT Int : 474 ms P-R-T Axes : 041 043 070 degrees QTc Int : 477 ms Sinus rhythm with 1st degree A-V block Otherwise normal ECG Confirmed by TONY RAMÍREZ ([id number]), pictures editor CAROLYN GROSS ([id number]) on 08/09/2018 2:12:13 PM Referred By: DUSTY Confirmed By:TONY RAMÍREZ
--- NOTE | 2018-08-04 16:01 | CT_ITS ---
STUDY: CT ABDOMEN AND PELVIS WITHOUT CONTRAST REASON FOR EXAM: Female, 52 years old. Lower abdominal pain RADIATION DOSAGE (If Supplied By Facility): CTDIvol = ( 22.57 ) mGy, DLP = ( 1220.16 ) mGycm TECHNIQUE: Transaxial images were obtained from the dome of the diaphragm to the symphysis pubis without oral contrast, and without intravenous contrast. Sagittal and coronal images were reconstructed. Individualized dose optimization techniques were used for this CT. COMPARISON: None. FINDINGS: This is a limited non-IV and nonoral contrast study. There are mild bilateral groundglass pulmonary opacities.. There is cardiomegaly. There is extensive calcific coronary atherosclerosis. Normal liver. There is a focal calcification within the gallbladder... Normal spleen. Normal pancreas. Normal bilateral adrenal glands. Normal right kidney. There is a 1 mm calculus within the upper pole of the left kidney. There is nodularity to mid pole left kidney. Normal visualized stomach. Normal small intestine. There is a large colonic fecal load within the rectosigmoid region. There is mild wall thickening. There is mild stranding in the perirectal fat. There is a sharp transition point within the sigmoid colon which is nondistended. More proximally there is moderate to large colonic fecal load with mild colonic distention. Normal abdominal aorta. Normal inferior vena cava. Normal retroperitoneum. The appendix is not visualized however there are no secondary signs of appendicitis Normal urinary bladder. Normal abdominal wall. The multilevel degenerative changes of the lumbar spine This calcification and soft tissue densities within the uterus. Endometrial lesion cannot be excluded. CT/Abdomen/Pelvis without Cont IMPRESSION: This is a limited non-IV and nonoral contrast study. Fecal impaction. There is a large colonic fecal load within the rectosigmoid region. There is mild wall thickening. There is mild stranding in the perirectal fat. This is suspicious for early stercoral ulceration. Mild groundglass pulmonary opacities likely hypoventilatory changes Sharp transition point within the sigmoid colon which is nondistended. This is suspicious for benign or malignant stricture. Colonoscopy follow-up is recommended. More proximally there is moderate to large colonic fecal load with mild colonic distention Cardiomegaly Extensive calcific coronary atherosclerosis, follow-up is recommended Left nephrolithiasis, nodularity mid pole left kidney which could be normal variant cannot exclude renal lesion further evaluation with multiphase MRI abdomen with and without contrast is recommended Cholelithiasis versus less likely small calcified polyp Likely uterine leiomyomas, evaluation is limited due to lack of IV contrast endometrial lesion cannot be excluded follow-up pelvic and transvaginal ultrasound is recommended Multilevel spondylosis lumbar spine Electronically Signed: German Richards, at 18:06 EDT Tel , Service support ,
--- NOTE | 2018-08-04 16:06 | ED.VISSUMM ---
- ER Visit Summary Date of Service: 08/04/18 Chief Complaint: Lower quadrant abdominal pain History of Present Illness: The patient is a 52 F history of insulin-dependent diabetes and a recent stroke in the last several months. COPD requiring 2 L of oxygen at home, no renal insufficiency, cardiac stents, anemia.. Patient is brought edema bilateral lower quadrant abdominal pain and constipation. Also vision. She lives with her sister sister states she gets this when she gets anxious she gets confused. Or when she is not feeling well. She has had no fever no vomiting or diarrhea. Physical Examination: Middle-aged female no acute distress vital signs are stable afebrile. She is confused. HEENT exam unremarkable. No facial droop. Normal speech. Neck nontender. Lungs clear to auscultation bilaterally. Heart regular rhythm no murmur. Rate about 60. Abdomen soft. Mildly obese. Tender both lower quadrants. No peritoneal signs. No hernias or masses. No signs of obstruction. Patient is moving all 4 extremities. Normal motor strength upper and lower extremities. She has normal speech. She is confused. She does not know day, month, year or where she is at this current time. She does follow commands. Test Results: CBC normal white count of 9. Hemoglobin 11.6 which is better than her baseline anemia. Electrolytes unremarkable creatinine 2.6 which is her baseline renal insufficiency. Liver lipase are normal. UA normal no signs of infection. EKG sinus rhythm rate of 61 with first-degree AV block. Chest x-ray chronic changes no acute process. CT abdomen pelvis shows significant constipation. Radiologist made other comments that she may need a colonoscopy to rule out stricture or possible malignancy but it was a noncontrast scan due to her renal function. CT the brain showed encephalomalacia chronic changes from the prior stroke with no acute process. Emergency Department Course and Treatment: Middle-aged female with confusion and abdominal pain. Repeat exam she is doing well. Family scheduled with her being discharged to home it sounds like she is always confused after speaking to them at length. It just gets worse when she has constipation or other issues develop. This is not specifically an acute change. Treatment Plan: Magnesium citrate for constipation. Follow-up with her primary care physician for possible colonoscopy referral. Disposition: Discharge Impression: Acute abdominal pain secondary to acute constipation Acute on chronic confusion History of prior CVA,, CAD with cardiac stents, diabetes, hypertension and renal insufficiency Chronic renal insufficiency This note was generated with Elio dictation software. It may contain incorrect words, spelling, and punctuation that were not noted in review of the chart prior to signing ED Disposition - Plan for ED Patient: Referrals: Care Physician,No Primary [Primary Care Provider] -
--- NOTE | 2018-08-04 16:10 | RAD_ITS ---
STUDY: X-RAY CHEST REASON FOR EXAM: Female, 52 years old. Confusion TECHNIQUE: Portable chest COMPARISON: 06/04/2018 FINDINGS: The lungs are clear and expanded. There is no demonstrated pleural abnormality. There is calcific coronary atherosclerosis. Normal size heart. Normal mediastinum and kristi. Normal visualized pulmonary arteries. Normal visualized aortic arch and descending thoracic aorta. Normal visualized thoracic spine. Normal visualized ribs, clavicles, and shoulders. There is no demonstrated abnormality of the visualized soft tissue structures of the upper abdomen. RAD/Chest 1 View (Portable) IMPRESSION: Normal x-ray examination of the chest. Electronically Signed: German Richards, at 16:26 EDT Tel , Service support ,
[2018-08-04 16:34] LABS: Bacteria 0 SEEN /hpf (None Seen); Mucous, Urine 0 SEEN /hpf (<or=2+); Squamous Epithelial Cells - UA 0 SEEN /hpf (5-10); White Blood Cells 0 SEEN /hpf (0-5)
[2018-08-04 16:39] LABS: Absolute Lymphocyte Count 1.29 X10^3/ul (0.83-4.51); Absolute Neutrophil Count 7.3 X10^3/uL (2.0-7.7); Basophil# 0.03 X10^3/uL; Basophil% 0.3 % (0-1); Hematocrit 35.6 % (37-47); Hemoglobin 11.6 g/dl (12.0-15.0); Lymphocyte # 1.29 X10^3/ul (4.0); Lymphocyte % 13.2 % (19-41); Mean Corp Hgb Conc 32.6 g/gl (32-36); Mean Corpuscular Hgb 26.4 pg (27.0-32.0); Mean Corpuscular Volume 80.9 fL (81-99); Mean Platelet Vol. 12.6 fl (6.2-12.0); Monocyte% 9.2 % (0-10); Neutrophil # 7.32 X10^3/uL (2.7-7.7); Neutrophil % 75.1 % (47-70); Platelet Count 250 K/mm3 (150-450); RBC Distribution Width CV 14.4 % (11.6-14.6); RBC Distribution Width SD 41.5 fl (35.1-43.9); White Blood Count 9.8 K/mm3 (4.4-11.0)
[2018-08-04 16:40] LABS: Color, Urine Yellow (Yellow); Glucose, Dipstick 50 mg/dl (Normal); Ketone-Dipstick Negative (Negative); Leukocyte Esterase-Dipstick Negative /ul (Negative); Nitrite-Dipstick Negative (Negative); Occult Blood-Urine 10 /ul (Negative); Protein-Dipstick 100 mg/dl (Negative); Urine Bilirubin Dipstick Negative (Negative); Urine Clarity Clear (Clear); Urine Urobilinogen Normal (Normal); Urine pH 6.5 (5.0 - 8.0)
[2018-08-04 16:43] LABS: POSITIVE COUNT NO; POSITIVE DIFFERENTIAL NO; POSITIVE MORPHOLOGY NO
[2018-08-04 16:57] LABS: AST(SGOT) 19 U/L (15-37); Alanine Aminotransfer ALT/SGPT 20 U/L (13-56); Albumin, Serum 2.7 g/dL (3.2-5.0); Alkaline Phosphatase 80 U/L (45-117); Anion Gap 8 (5-15); BUN 58 mg/dL (7-18); BUN/Creat Ratio 22.3 RATIO (10-20); Bilirubin, Direct 0.08 mg/dL (0.00-0.30); Calcium,Total 8.6 mg/dL (8.5-10.1); Chloride 97 mmol/L (98-107); EST Glomerular Filtration Rate 21 mL/min (>60); Est Glom Filt Rate - Afr Amer 25 mL/min (>60); Estimated Creatinine Clearance 26.45 ml/min; Globulin 4.1 g/dL (2.2-4.2); Glucose 246 mg/dL (74-106); Lipase 139 U/L (73-393); Potassium 3.8 mmol/L (3.5-5.1); Protein, Total 6.8 g/dL (6.4-8.2); Sodium Level 137 mmol/L (136-145)
[2018-08-04 17:10] LABS: Red Blood Cells-Urine 0-5 SEEN /hpf (0-5)
[2018-08-04 17:50] VITALS: BP 170/96; PULSE 62; RESP 15; O2SAT 100
--- NOTE | 2018-08-04 18:30 | ED.DEP ---
ED Disposition - Plan for ED Patient: Disposition: Home or Assisted Living Instructions: ED Confusion, ED Constipation Referrals: Pedro Luis Dowell MD [STAFF PHYSICIAN] - 3-5 Days Additional Instructions: Magnesium citrate for the constipation. Along with plenty of fluids and fiber. Prune juice. Follow-up with primary care physician. She may need a colonoscopy for further evaluation of her
[2018-08-04 18:33] VITALS: BP 158/80; PULSE 60; RESP 18; O2SAT 100
[2018-08-04] MEDS: Magnesium Citrate 300 ML PO (18:33)
== END 2018-08-04 18:36 | disposition home or self-care (01) ==
PROVIDERS: Emergency Provider Emergency Medicine
DX: K59.00 Constipation, unspecified (principal); R41.0 Disorientation, unspecified; I25.10 Atherosclerotic heart disease of native coronary artery without angina pectoris; I12.9 Hypertensive chronic kidney disease with stage 1 through stage 4 chronic kidney disease, or unspecified chronic kidney disease; E11.22 Type 2 diabetes mellitus with diabetic chronic kidney disease; N18.9 Chronic kidney disease, unspecified; K21.9 Gastro-esophageal reflux disease without esophagitis; J44.9 Chronic obstructive pulmonary disease, unspecified; Z95.5 Presence of coronary angioplasty implant and graft; Z86.73 Personal history of transient ischemic attack (TIA), and cerebral infarction without residual deficits; Z99.81 Dependence on supplemental oxygen; Z79.4 Long term (current) use of insulin; Z79.82 Long term (current) use of aspirin; Z79.01 Long term (current) use of anticoagulants; Z79.899 Other long term (current) drug therapy
CPT/HCPCS: 70450; 71045; 74176; 80048; 80076; 81001; 83690; 85025; 93005; 99285; P9612; A4216

== ENCOUNTER → 2018-09-20 | Outpatient (CLI) | payer MEDICARE, MEDICAID, SELFPAY ==
--- NOTE | 2018-09-20 13:21 | RAD_ITS ---
STUDY: SWALLOWING STUDY REASON FOR EXAM: Female, 52 years old. TECHNIQUE: The examination was performed with Speech Pathology in attendance. Under fluoroscopic observation, the patient ingested thin barium, thick barium, barium pudding, and barium coated cracker. FLUOROSCOPY TIME: 0:20 minutes/seconds RADIOLOGIST INVOLVEMENT: COMPARISON: None. FINDINGS: The following was observed during swallowing of the various mixtures of barium: Thin Barium: There was no evidence of aspiration or laryngeal penetration. Thick Barium: There was no evidence of aspiration or laryngeal penetration. Barium Pudding: There was no evidence of aspiration or laryngeal penetration. Barium Coated Cracker: There was no evidence of aspiration or laryngeal penetration. RAD/Swallowing Function w/Video IMPRESSION: Normal tailored barium swallow study. No evidence of increased risk for aspiration. The swallow study findings were discussed with the patient by the speech pathologist at the conclusion of the examination. Please see speech pathology report for more information and recommendations. The procedure was performed by under the direct supervision of Electronically Signed: Pillo Hernandez, at 10:08 EDT Tel , Service support ,
--- NOTE | 2018-09-20 13:30 | SP.MBSS_ITS ---
PRIMARY / SECONDARY DIAGNOSIS: dysphagia (R13.10) REFERRING PHYSICIAN: Page Lange CURRENT DIET: regular textures, thin liquids DENTITION: natural MENTAL STATUS: severe fluent aphasia RESPIRATORY STATUS: O2 via room air REASON FOR REFERRAL: The Patient is a 52 year old female referred for a modified barium swallow (MBS) study to objectively assess the Patients oropharyngeal swallow function under fluoroscopy secondary to concerns for dysphagia secondary to a large left middle cerebral artery cerebrovascular accident left posterior temporal, posterior frontal, and parietal lobes. MEDICAL HISTORY: Recent left middle cerebral artery cerebrovascular accident involving the left posterior temporal, posterior frontal, and parietal lobes; morbid obesity, hypertension, uncontrolled type II diabetes mellitus. PREVIOUS MODIFIED BARIUM SWALLOW STUDY: None. ADDITIONAL OBJECTIVE ASSESSMENT RESULTS: 08/04/2018 CXR revealed a normal x-ray examination of the chest. 08/04/2018 CT revealed encephalomalacia within the left temporal lobe, posterior left frontal parietal lobes corresponding to prior infarct; no acute findings; mild small vessel fold deep white matter ischemia. 05/19/2018 MRI revealed an acute ischemic changes within the left posterior temporal, posterior frontal and parietal lobes. ASSESSMENT PARAMETERS: The Patient participated in a Modified Barium Swallow (MBS) study on 09/20/2018. This study was recorded in the lateral view and images were sent to PACs for storage. Scoring was completed through each trial using the 8- point Penetration-Aspiration Scale (PAS) and summarized via the Modified Barium Swallow Impairment Profile (MBSImP) and the Bolus Residue Scale (BRS), with severity scoring through the Dysphagia Severity Rating Scale (DSRS) and Swallowing Performance Scale (SPS), and recommended diet textures through the International Dysphagia Diet Standardisation Initiative (IDDSI) RESULTS OF THE EVALUATION: The Patient presents with mastication and deglutition abilities found to be grossly within functional limits (DSRS: 1; SPS: 2). OBJECTIVE ASSESSMENT OF SWALLOW FUNCTION (QUANTITATIVE ? PER TRIAL): PENETRATION / ASPIRATION SCALE (LOPEZ): 1 = does not enter airway 2 = enters airway/above vocal folds/ejected 3 = enters airway/above vocal folds/not ejected 4 = enters airway/contacts vocal folds/ejected 5 = enters airway/contacts vocal folds/not ejected 6 = enters airway/below vocal folds/ejected 7 = enters airway/below vocal folds/not ejected despite effort 8 = enters airway/below vocal folds/no effort PENETRATION / ASPIRATION SCALE (SCORE): Thin liquid - 5 mL tsp.: 1 Thin liquids via straw (single sip): 1 Thin liquids via straw (single sip): 2 Thin liquids via straw (single sip): 1 Thin liquids via straw (single sip): 1 Pudding via spoon: 1 Regular textured cookie: 1 Thin liquids via straw (single sip): 2 OBJECTIVE ASSESSMENT OF SWALLOW FUNCTION (QUANTITATIVE ? AGGREGATE): MODIFIED BARIUM SWALLOW IMPAIRMENT PROFILE (MBSImP) LABIAL SEAL: 0 (of 4) no labial escape TONGUE CONTROL: 2 (of 3) posterior escape < 50% BOLUS PREPARATION / MASTICATION: 0 (of 3) timely and efficient BOLUS TRANSPORT / LINGUAL MOTION: 0 (of 4) brisk tongue motion ORAL RESIDUE: 1 (of 4) trace residue lining oral structures INITIATION OF PHARYNGEAL SWALLOW: 3 (of 4) pyriforms SOFT PALATE ELEVATION: 0 (of 4) no bolus between soft palate & pharyngeal wall LARYNGEAL ELEVATION: 0 (of 3) complete superior movement / approximation ANTERIOR HYOID EXCURSION: 1 (of 2) partial movement EPIGLOTTIC MOVEMENT: 0 (of 2) complete inversion LARYNGEAL VESTIBULE CLOSURE: 0 (of 2) complete closure PHARYNGEAL STRIPPING WAVE: 0 (of 2) present / complete PE SEGMENT OPENIN (of 3) complete distension / duration; no obstruction TONGUE BASE RETRACTION: 1 (of 4) trace column of contrast PHARYNGEAL RESIDUE: 2 (of 4) collection of residue ESOPHAGEAL BOLUS CLEARANCE: could not view BOLUS RESIDUE SCALE (BRS): 1 (of 6) no residue DYSPHAGIA SEVERITY RATING SCALE (DSRS): 1 (within functional limits) SWALLOWING PERFORMANCE SCALE (SPS): 2 (within functional limits) OBJECTIVE ASSESSMENT OF SWALLOW FUNCTION (QUALITATIVE): ORAL PREPARATORY PHASE: sufficient mastication rate and quality with sufficient anterior oral containment; preserved management of breathing / bolus formation without disrupted E ? S ? E pattern. ORAL TRANSITIONAL PHASE: sufficient bolus transportation; no lingual discoordination (no tremor / undulations); no bolus consolidation impairments; sufficient oral containment across textures, with premature spillage associated with irregular holding of large bolus volumes with cueing from staff. PHARYNGEAL PHASE: mild pharyngeal phase dyssynchrony resulting in occasional prandial shallow and transient penetration; sufficient hyolaryngeal excursion; sufficient / consistent laryngeal vestibule pressure generated to expel penetrated material; no signs of pharyngeal dysmotility; no signs of velopharyngeal impairments. ESOPHAGEAL PHASE: no obvious esophageal phase abnormalities observed. RECOMMENDATIONS AND CONSIDERATIONS: The Patient presents with mastication and deglutition abilities found to be grossly within functional limits. The Patient?s family retail wireless sales representative was able to comprehend information presented upon review and express recommended intake precautions (reduced bolus volume) to suggest high likelihood of compliance. Provided a brief overview of signs and symptoms of aspiration, with recommendations for the Patient to further discuss any further symptoms with the Patients primary care physician. No further skilled speech-language services warranted at this time targeting dysphagia (continued intervention targeting fluent aphasia recommended). DIET TEXTURE RECOMMENDATIONS: Will recommend a regular textured (IDDSI: 7), thin liquid diet (IDDSI: 0) diet IMAGE COUNT: [id number] Brian Salcido M.A., CCC-MISSION COMMANDER MBSImP Certified, LSVT Certified [facility] Speech-Language Pathology Department [email or web address]
== END | disposition home or self-care (01) ==
LOC: RAD 13:16
PROVIDERS: Family Provider Nurse Practitioner Family; PCP Nurse Practitioner Family; Referring Provider Nurse Practitioner Family; Visit Provider Nurse Practitioner Family
DX: R13.12 Dysphagia, oropharyngeal phase (principal)
CPT/HCPCS: 74230; 92611

== ENCOUNTER → 2018-10-14 | Outpatient (CLI) | payer MEDICARE, MEDICAID, SELFPAY ==
[2018-09-24 10:16] VITALS: BMI 30.1
--- NOTE | 2018-10-14 16:29 | STRESSREP ---
Stress Test Report Pharmacologic myocardial perfusion stress test. 52-year-old lady with a history of chest pain. Stress protocol: Resting EKG demonstrates sinus bradycardia with a rate of 57 bpm normal intervals are noted nonspecific ST changes are noted resting blood pressure 150/82 mmHg. 0.4 mg of regadenoson was infused per usual protocol followed by Intravenous saline flush injection continuous EKG monitoring was performed. The maximum heart rate attained was 78 bpm which was 46% maximum predicted heart rate and maximum workload was 1 metabolic equivalent. At rest there were nonspecific ST-T wave changes noted. The resting blood pressure 150/82 with a final blood pressure of 140/78 mmHg. Myocardial perfusion protocol. 14.2 mCi of technetium 99m sestamibi was injected at rest. 0.4 mg of adenosine was infused per usual protocol peak infusion 44.6 mCi of technetium 99m sestamibi was injected stress images were obtained stress and rest images were reconstructed in comparing the short axis vertical and horizontal long axis. Gated images were also obtained Perfusion SPECT analysis: Review of the stress images demonstrate normal uptake of tracer noted in all rest myocardium the rest images similarly demonstrate normal uptake of tracer noted in all rest myocardium. No obvious areas of reversibility or no suggest ischemia. Gated SPECT analysis: The gated ejection fraction is noted to be 65%. Conclusion: Normal pharmacologic myocardial perfusion stress test. Preserved ejection fraction.
== END | disposition home or self-care (01) ==
LOC: CVS 06:20
PROVIDERS: Family Provider Nurse Practitioner Family; PCP Nurse Practitioner Family; Referring Provider Internal Medicine Cardiovascular Disease; Visit Provider Internal Medicine Cardiovascular Disease
DX: I25.10 Atherosclerotic heart disease of native coronary artery without angina pectoris (principal); Z98.61 Coronary angioplasty status
CPT/HCPCS: 78452; 93017; A9500; A4216; J2785

== ENCOUNTER 2019-04-04 12:41 | Emergency (ER) | payer MEDICARE, MEDICAID, SELFPAY ==
[2018-09-24 10:16] VITALS: BMI 30.1
[2019-04-04 12:43] VITALS: BP 151/87; BP 166/75; PULSE 61; PULSE 67; RESP 14; RESP 18; TEMP 36.9; O2SAT 98; BMI 38.7
--- NOTE | 2019-04-04 12:57 | CT_ITS ---
STUDY: CT ABDOMEN AND PELVIS WITHOUT CONTRAST REASON FOR EXAM: Female, 53 years old. FLANK PAIN, HX [place] RADIATION DOSAGE (If Supplied By Facility): CTDIvol = ( 14.65 ) mGy, DLP = ( 700.47 ) mGycm TECHNIQUE: Transaxial images were obtained from the dome of the diaphragm to the symphysis pubis without oral contrast, and without intravenous contrast. Sagittal and coronal images were reconstructed. Individualized dose optimization techniques were used for this CT. COMPARISON: Comparison is made with prior study dated August 04, 2018. FINDINGS: The visualized lung bases are unremarkable. Coronary artery calcification. Normal liver. There are small gallstones in the dependent portion of the gallbladder. I also suspect a small amount of sludge.. Normal spleen. Normal pancreas. Normal bilateral adrenal glands. Normal right kidney. Normal left kidney. Normal visualized stomach. Normal small intestine. There are multiple colonic diverticula consistent with diverticulosis. The appendix is visualized and appears normal. There is scattered atherosclerotic calcification of the abdominal aorta, without a demonstrated aneurysm. Normal inferior vena cava. Normal retroperitoneum. Normal urinary bladder. Calcified fibroid uterus. Calcified phleboliths in the left hemipelvis. Small left paramedian anterior abdominal wall hernia containing fat. The neck of the hernia measures 1.5 cm. There are mild degenerative changes of the visualized lumbar spine. CT/Abdomen/Pelvis without Cont IMPRESSION: Small gallstones and sludge in the gallbladder lumen. Electronically Signed: David Painting, at 14:32 EST , Service support ,
[2019-04-04] MEDS: Ketorolac 30 MG/ML Syringe 15 MG IV (13:11)
[2019-04-04] MEDS: Ondansetron 4 MG/2 ML Vial IV (13:11)
[2019-04-04] MEDS: 0.9% Normal Saline 1,000 ML 250 ML IV (13:11)
[2019-04-04 13:40] LABS: Mucous, Urine 0 SEEN /hpf (<or=2+); Red Blood Cells-Urine 0 SEEN /hpf (0-5)
[2019-04-04 13:42] LABS: Color, Urine Yellow (Yellow); Glucose, Dipstick 50 mg/dl (Normal); Ketone-Dipstick Negative (Negative); Leukocyte Esterase-Dipstick 25 /ul (Negative); Nitrite-Dipstick Negative (Negative); Occult Blood-Urine 25 /ul (Negative); Protein-Dipstick 500 mg/dl (Negative); Urine Bilirubin Dipstick Negative (Negative); Urine Clarity Sl. Cloudy (Clear); Urine Urobilinogen Normal (Normal); Urine pH 6.5 (5.0 - 8.0)
--- NOTE | 2019-04-04 13:43 | ED.VIS.GEN ---
History of Present Illness Chief Complaint: Flank Pain Informant: Patient, Family Limited by: - - Cognitive impairment Onset: Today Context: Sudden Onset Timing: Continuous Quality: Sharp right flank pain Location: Right flank pain radiating anteriorly Current Severity: Mild Maximum Severity: Severe Worsened by: Nothing Relieved by: Nothing Associated Symptoms: Nausea Narrative: She is a middle-age woman who is cognitively impaired presents with acute right flank pain that started prior to arrival. This associate with nausea without vomiting diarrhea. She denies dysuria, frequency, urgency or hematuria. There is a history of renal calculi and cholelithiasis. There is no history of intolerance to greasy or fried foods. She denies history of trauma. She has not noted a rash. She denies respiratory symptoms. Prior similar symptoms: No Recent Illness/Hospitalization: No - Past Medical History (1) History of cholelithiasis Status: Acute (2) History of renal calculi Status: Acute (3) Acute ischemic left MCA stroke Status: Acute Comment: April 2018 (4) Acute kidney injury Status: Acute (5) Congestive heart failure Status: Chronic (6) Coronary artery disease Status: Chronic (7) Diabetes Status: Chronic (8) Hypertension Status: Chronic (9) Morbid obesity Status: Chronic (10) Asthma Status: Inactive Past Medical History - Allergies and Home Meds Allergies/Adverse Reactions: Allergies No Known Allergies Allergy (Verified 09/24/18 10:18) Primary Care Physician: Page Sutton NP-C [Primary Care Provider] - Prior records reviewed: Yes Surgical History: - - Coronary stents. Patient is confused and further history cannot be obtained. Lives: With Family Smoking Status: Never smoker Alcohol: None Drugs: None - Family History Maternal Family History: Family History (Last Reviewed 09/24/18 @ 10:45 by Jalen Romano MD) Mother Diabetes Heart disease Hypertension Father Hypertension Heart disease Brother Heart disease Hypertension Sister Heart disease Diabetes Family History: Reports: Diabetes, Heart Disease Paternal Family History: Family History (Last Reviewed 09/24/18 @ 10:45 by Jalen Romano MD) Mother Diabetes Heart disease Hypertension Father Hypertension Heart disease Brother Heart disease Hypertension Sister Heart disease Diabetes Family History: Reports: Heart Disease, Hypertension Review of Systems ROS: Unable to Obtain - History is limited secondary to cognitive impairment. General: Denies: Chills, Fever Cardiovascular: Denies: Chest pain Respiratory: Denies: Dyspnea, Cough Gastrointestinal: Reports: Nausea. Denies: Abdominal pain, Vomiting, Diarrhea Genitourinary: Denies: Dysuria, Hematuria, Frequency Musculoskeletal: Reports: Back pain. Denies: Myalgias, Arthralgias Skin: Denies: Rash, Wounds Neurological: Denies: Weakness Hematologic: Denies: Easy bruising, Easy bleeding Allergy: Denies: Uticaria, Swelling of the mouth Physical Exam Vital Signs/Narrative: Vital Signs Temp Pulse Resp BP Pulse Ox 04/04/19 12:43 98.5 F 61 14 166/75 H 98 Inital Vital Signs reviewed: Yes General: Well nourished, Well developed, Obese, No Acute Distress Head: Normocephalic, Atraumatic Eyes: Perrl, EOMI, - - Conjunctival hemorrhage temporal side right eye secondary to intraocular injection. Negative for: Pale conjunctiva, Scleral icterus ENT: Moist mucous membranes, No rhinorrhea Neck: Supple, Nontender, No lymphadenopathy, No JVD Cardiovascular: Regular rate, Regular rhythm, No murmurs, Normal S1, Normal S2 Respiratory: No distress, CTA bilaterally, Chest nontender Abdomen: Soft, Nontender, Nondistended, Normal bowel sounds, No masses Back: Nontender, Normal Inspection, CVA tenderness - Right sided Extremities: Nontender, No edema Skin: Normal color, No rash Neurological: Alert, Oriented x3, Cranial nerves II-XII grossly intact, Normal Strength, Normal Sensation Psychological: Normal affect, Normal Mood Diagnostic/Tx/Re-eval Impressions Abdomen/Pelvis CT 04/04/19 12:57 IMPRESSION: Small gallstones and sludge in the gallbladder lumen. Electronically Signed: David Painting, at 14:32 EST , Service support , 04/04/19 12:57 Abdomen/Pelvis without Cont [CT] Stat Laboratory Results 04/04/19 04/04/19 12:54 13:35 Sodium 141 Potassium 4.2 Chloride 109 H Carbon Dioxide 30.0 Anion Gap 2 L BUN 44 H Creatinine 1.95 H Estim Creat Clear Calc 26.39 Est GFR (MDRD) Af Amer 35 L Est GFR (MDRD) Non-Af 29 L BUN/Creatinine Ratio 22.6 H Glucose 171 H Calcium 8.1 L Urine Color Yellow Urine Clarity Sl. Cloudy Urine pH 6.5 Ur Specific [place] 1.010 Urine Protein 500 H Urine Glucose (UA) 50 H Urine Ketones Negative Urine Occult Blood 25 H Urine Nitrite Negative Urine Bilirubin Negative Urine Urobilinogen Normal Ur Leukocyte Esterase 25 H Urine RBC 0 SEEN Urine WBC 0-5 SEEN Ur Squamous Epith Cells 0-5 SEEN Urine Bacteria RARE Urine Mucus [address] of the abdomen pelvis without contrast reveals no acute abnormality. There is evidence of sludge and gallstones. Will obtain liver profile and will add CBC. - Medical Decision Making He was established and patient was medicated for her pain. Concerned this may represent obstructing ureteral calculi. Appropriate blood work was obtained to assess blood sugar, electrolytes and renal function since she has history of diabetes and renal dysfunction. CBC to assess white count and H&H. UA to evaluate for infection. CT of the abdomen was obtained to determine if there is an obstructing ureteral calculus. Patient CBC, liver profile and lipase are normal will discharge with prescription for opiate analgesia and she was for 2 surgeon on-call for no doc. ED Disposition - Plan for ED Patient: Disposition: Home or Assisted Living Diagnosis: Biliary colic, Cholelithiasis Instructions: BILIARY COLIC with Gallstone (Confirmed) Prescriptions: Hydrocodone Bitart/Apap 5-325 [[place] 5MG-325MG] 1 tablet PO Q6H PRN PRN 3 Days #10 tablet PRN Reason: Pain Transmission Status: Received by [id number] Referrals: Page Sutton NP-C [Primary Care Provider] - Sage Villanueva MD [STAFF PHYSICIAN] - 3-5 Days
[2019-04-04 13:48] LABS: Bacteria RARE /hpf (None Seen); Squamous Epithelial Cells - UA 0-5 SEEN /hpf (5-10); White Blood Cells 0-5 SEEN /hpf (0-5)
[2019-04-04 13:49] LABS: Anion Gap 2 (5-15); BUN 44 mg/dL (7-18); BUN/Creat Ratio 22.6 RATIO (10-20); Calcium,Total 8.1 mg/dL (8.5-10.1); Chloride 109 mmol/L (98-107); Creatinine, Serum 1.95 mg/dL (0.55-1.02); EST Glomerular Filtration Rate 29 mL/min (>60); Est Glom Filt Rate - Afr Amer 35 mL/min (>60); Estimated Creatinine Clearance 26.39 ml/min; Glucose 171 mg/dL (74-106); Potassium 4.2 mmol/L (3.5-5.1); Sodium Level 141 mmol/L (136-145)
[2019-04-04 14:41] VITALS: BP 184/87; PULSE 61; RESP 16; O2SAT 98
[2019-04-04 15:58] LABS: Absolute Lymphocyte Count 1.19 X10^3/uL (0.83-4.51); Basophil# 0.03 X10^3/uL; Basophil% 0.4 % (0-1); Eosinophil# 0.25 X10^3/uL; Eosinophils% 3.6 % (0-5); Hematocrit 37.7 % (37-47); Hemoglobin 12.3 g/dL (12.0-15.0); Lymphocyte # 1.19 X10^3/ul (4.0); Lymphocyte % 17.1 % (19-41); Mean Corp Hgb Conc 32.6 g/dL (32-36); Mean Corpuscular Hgb 27.5 pg (27.0-32.0); Mean Corpuscular Volume 84.2 fL (81-99); Mean Platelet Vol. 12.5 fl (6.2-12.0); Monocyte# 0.44 X10^3/uL; Monocyte% 6.3 % (0-10); NRBC Flagged by Analyzer 0 % (0-5); Neutrophil # 5.04 X10^3/uL (2.7-7.7); Neutrophil % 72.3 % (47-70); Platelet Count 188 K/mm3 (150-450); RBC Distribution Width CV 13.3 % (11.6-14.6); RBC Distribution Width SD 41.1 fl (35.1-43.9); Red Blood Count 4.48 M/mm3 (4.2-5.4)
[2019-04-04 16:00] VITALS: BP 119/97; PULSE 65; RESP 16; O2SAT 96
[2019-04-04 16:06] LABS: AST(SGOT) 27 U/L (15-37); Alanine Aminotransfer ALT/SGPT 40 U/L (13-56); Albumin, Serum 2.5 g/dL (3.2-5.0); Alkaline Phosphatase 100 U/L (45-117); Bilirubin, Direct 0.11 mg/dL (0.00-0.30); Globulin 3.6 g/dL (2.2-4.2); Lipase 180 U/L (73-393); Protein, Total 6.1 g/dL (6.4-8.2)
[2019-04-04] MEDS: HYDROmorphone 0.5 MG/0.5 ML SYRINGE IV (16:41)
== END 2019-04-04 16:53 | disposition home or self-care (01) ==
PROVIDERS: Emergency Provider Emergency Medicine; Family Provider Nurse Practitioner Family; PCP Nurse Practitioner Family
DX: K80.70 Calculus of gallbladder and bile duct without cholecystitis without obstruction (principal); I11.0 Hypertensive heart disease with heart failure; I50.9 Heart failure, unspecified; I25.10 Atherosclerotic heart disease of native coronary artery without angina pectoris; E11.9 Type 2 diabetes mellitus without complications; E66.01 Morbid (severe) obesity due to excess calories; J45.909 Unspecified asthma, uncomplicated; Z87.442 Personal history of urinary calculi; Z86.73 Personal history of transient ischemic attack (TIA), and cerebral infarction without residual deficits
CPT/HCPCS: 74176; 80048; 80076; 81001; 83690; 85025; 96361; 96374; 96375; 99282; J7030; A4216; J2405

== ENCOUNTER 2019-04-15 22:47 | Emergency (ER) | payer MEDICARE, MEDICAID, SELFPAY ==
[2019-04-14 13:16] VITALS: BMI 38.7
[2019-04-15 22:50] VITALS: BP 143/83; PULSE 60; RESP 17; TEMP 36.4; O2SAT 98; BMI 39.4
--- NOTE | 2019-04-15 23:00 | ED.VIS.GEN ---
History of Present Illness Chief Complaint: Edema Informant: Patient Narrative: Stated she developed a bruise earlier today on her right mid arm. It is slightly sore to touch. She does not remember injuring anything. She is on Eliquis. She stated she is unsure the cause. Patient stated it is mild in nature. Denies any deep pain to the arm. Patient has chronic edema of her lower extremities. She takes torsemide 50 mg the morning. She is noticed over the last few days she has had worsening lower extremity edema. This is a chronic problem for her but is slightly worse. Came in for further evaluation of this as well. Patient denies any shortness of breath or cardiac symptoms - Past Medical History (1) Acute ischemic left MCA stroke Status: Acute Comment: April 2018 (2) Acute kidney injury Status: Acute (3) Acute renal injury due to circulatory failure Status: Acute (4) History of cholelithiasis Status: Acute (5) History of renal calculi Status: Acute (6) Congestive heart failure Status: Chronic (7) Coronary artery disease Status: Chronic (8) Diabetes Status: Chronic (9) Hypertension Status: Chronic (10) Morbid obesity Status: Chronic (11) History of PTCA Status: Resolved Comment: PTCA to left anterior descending artery and left obtuse marginal 1 artery with a KWAKU. A total of two KWAKU's to the proximal LAD and 1 to the obtuse marginal 1. (12) History of left heart catheterization Status: Resolved Comment: 07/01/2016, [facility] (13) Asthma Status: Inactive (14) Community acquired bacterial pneumonia Status: Inactive Past Medical History - Allergies and Home Meds Allergies/Adverse Reactions: Allergies No Known Allergies Allergy (Verified 04/15/19 22:50) Primary Care Physician: Page Sutton NP-C [Primary Care Provider] - Prior records reviewed: Yes Past Medical History: - - Reviewed Surgical History: - - Coronary stents. Patient is confused and further history cannot be obtained. Lives: With Family Smoking Status: Never smoker Alcohol: None Drugs: None - Family History Maternal Family History: Family History (Last Reviewed 04/14/19 @ 12:49 by Annetta Bahena) Mother Diabetes Heart disease Hypertension Father Hypertension Heart disease Brother Heart disease Hypertension Sister Heart disease Diabetes Family History: Reports: Diabetes, Heart Disease Paternal Family History: Family History (Last Reviewed 04/14/19 @ 12:49 by Annetta Bahena) Mother Diabetes Heart disease Hypertension Father Hypertension Heart disease Brother Heart disease Hypertension Sister Heart disease Diabetes Family History: Reports: Heart Disease, Hypertension Review of Systems General: Denies: Chills, Fever, Sweats Eyes: Denies: Visual changes - bilaterally, Diplopia ENT: Denies: Rhinorrhea, Sore throat Cardiovascular: Denies: Chest pain, Palpitations Respiratory: Denies: Dyspnea, Cough, Dyspnea on exertion Gastrointestinal: Denies: Abdominal pain, Nausea, Vomiting, Diarrhea, Melena, Hematochezia Genitourinary: Denies: Dysuria, Hematuria, Frequency Musculoskeletal: Reports: Swelling. Denies: Back pain, Extremity Pain Skin: Reports: - - See HPI. Denies: Rash, Wounds Neurological: Denies: Headache, Weakness, Numbness Physical Exam Vital Signs/Narrative: Vital Signs Temp Pulse Resp BP Pulse Ox 04/15/19 22:50 97.6 F L 60 17 143/83 H 98 General: Well nourished, Well developed, No Acute Distress Head: Normocephalic, Atraumatic Eyes: Perrl, EOMI ENT: Moist mucous membranes, No rhinorrhea Neck: Supple, Nontender Cardiovascular: Regular rate, Regular rhythm, No murmurs Respiratory: No distress, CTA bilaterally, Chest nontender Abdomen: Soft, Nontender, Nondistended, Normal bowel sounds Back: Nontender, Normal Inspection Extremities: Edema - Mild 1-2+ edema of the lower extremities bilateral mid deluca down to foot. Negative for: Nontender, No edema Skin: No rash, - - And has a small contusion to her right lateral humerus. It measures 2 x 2 cm Neurological: Alert, Oriented x3, Cranial nerves II-XII grossly intact, Normal Strength, Normal Sensation Psychological: Normal affect, Normal Mood Diagnostic/Tx/Re-eval - Medical Decision Making Reassured that she just has an arm contusion. She has mild edema of her lower extremities. Electrolytes reassessed. Creatinine 2.2. Calcium mildly low unchanged from prior. Rest of electrolytes unremarkable. At this time I feel the patient can be discharged. She has chronic lower extremity edema that is mild in nature. She will increase the dose of her water pill for the next few days and follow-up as an outpatient ED Disposition - Plan for ED Patient: Disposition: Home or Assisted Living Diagnosis: Leg edema, Contusion Instructions: ED Peripheral Edema, Bilateral Referrals: Page Sutton, [facility] REPA[facility]ER [facility]-C [Primary Care Provider] -
[2019-04-15 23:45] LABS: Anion Gap 6 (5-15); BUN 66 mg/dL (7-18); BUN/Creat Ratio 28.8 RATIO (10-20); Calcium,Total 8.2 mg/dL (8.5-10.1); Chloride 106 mmol/L (98-107); Creatinine, Serum 2.29 mg/dL (0.55-1.02); EST Glomerular Filtration Rate 24 mL/min (>60); Est Glom Filt Rate - Afr Amer 29 mL/min (>60); Estimated Creatinine Clearance 21.44 ml/min; Glucose 160 mg/dL (74-106); Potassium 3.8 mmol/L (3.5-5.1); Sodium Level 141 mmol/L (136-145)
== END 2019-04-16 00:15 | disposition home or self-care (01) ==
PROVIDERS: Emergency Provider Emergency Medicine; PCP Nurse Practitioner Family
DX: R60.0 Localized edema (principal); S40.021A Contusion of right upper arm, initial encounter; I11.0 Hypertensive heart disease with heart failure; I50.9 Heart failure, unspecified; I25.10 Atherosclerotic heart disease of native coronary artery without angina pectoris; E11.9 Type 2 diabetes mellitus without complications; E66.9 Obesity, unspecified; J45.909 Unspecified asthma, uncomplicated; Z79.02 Long term (current) use of antithrombotics/antiplatelets; Z86.73 Personal history of transient ischemic attack (TIA), and cerebral infarction without residual deficits; Z87.442 Personal history of urinary calculi; X58.XXXA Exposure to other specified factors, initial encounter; Y93.9 Activity, unspecified; Y92.89 Other specified places as the place of occurrence of the external cause; Y99.8 Other external cause status
CPT/HCPCS: 36415; 80048; 99282

== ENCOUNTER 2019-05-05 07:08 | Day surgery (SDC) | payer MEDICARE, MEDICAID, SELFPAY ==
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
[2019-04-28 07:15] VITALS: BMI 39.4
--- NOTE | 2019-05-05 07:33 | EKG12_ITS ---
Test Reason : PREOP Blood Pressure : / mmHG Vent. Rate : 060 BPM Atrial Rate : 060 BPM P-R Int : 224 ms QRS Dur : 086 ms QT Int : 464 ms P-R-T Axes : 011 013 030 degrees QTc Int : 464 ms Sinus rhythm with 1st degree A-V block Otherwise normal ECG When compared with ECG of 04-AUG-2018 16:11, No significant change was found Confirmed by GAYLA REYES, JOLLY ([id number]), technical writer and editor CAPRI BROUSSARD ([id number]) on 05/09/2019 11:13:39 AM Referred By: Sage Villanueva Confirmed By:SWAPNA SHUKLA MD
[2019-05-05 07:56] VITALS: BP 162/83; PULSE 58; RESP 16; TEMP 36.6; O2SAT 97; BMI 37.0
[2019-05-05 08:23] LABS: Hemoglobin A1c 6.2 % (4.2-6.3)
[2019-05-05 08:25] LABS: Bedside Glucose 153 mg/dL (70-110)
[2019-05-05] MEDS: Lactated Ringers 1,000 ML 100 ML IV (08:34)
--- NOTE | 2019-05-05 09:00 | GALL_PTH ---
PATIENT: ZAYDA ANTOINE LOC: [facility] U#:[id number] AGE/SX: 53/F ROOM: RE05/05/[address]: Dr. Sage Villanueva MD : 1965 BED: DIS: 05/05/2019 SPEC #: [id number] RECD: 05/05/19 11:52 STATUS: PABLO ARNAUD #: [id number] JUDSON: 05/05/19 09:[address]: Sage Villanueva DEPT: SURGICAL PATHOLOGY RECD BY: Brian Jorge ENTERED: 05/05/19 13:16 SP TYPE: ОЛЬГА NOEL DR: Page Sutton, FLASK PUSHER-Julian Tissues: Gallbladder, NOS Procedures: Surgery Specimen Level III HEADER OPERATION: Laparoscopic cholecystectomy with IOC PRE-OP DIAGNOSIS: Calculus of gallbladder without cholecystitis TISSUE SUBMITTED: Gallbladder MICROSCOPIC DIAGNOSIS Gallbladder, cholecystectomy: Chronic cholecystitis and cholelithiasis. Benign pericystic lymph node. AM:wendi 05/06/19 MICROSCOPIC DESCRIPTION Slides are reviewed. GROSS DESCRIPTION Received is one container labeled with the patient's name and designated gallbladder. The specimen consists of a gallbladder measuring 8 x 3 x 2.5 cm. The external surface is smooth and glistening. Focally, it is granular, hemorrhagic and contains cautery artifact. The lumen of the gallbladder contains greenish mucoid bile and multiple black calculi ranging in size from <0.1 to 0.6 cm. The mucosa is bile-stained and without any mass lesions. The gallbladder wall averages 0.1 cm in thickness and is free of mass lesions. The cystic soft tissue contains a faith nodule representing a lymph nodes. Rotoformer Backtender sections of the gallbladder and the cystic duct at margin of resection including paracystic lymph node are submitted in one cassette. / AM:wendi 05/05/19 TC:3 CPT: 80766
[2019-05-05] MEDS: Bupiv/Epi 0.25% 30 ML Vial (10:00)
[2019-05-05 10:20] VITALS: BP 162/83; BP 175/75; PULSE 65; RESP 18; TEMP 36.6; O2SAT 95
[2019-05-05 10:30] VITALS: BP 162/83; BP 166/73; PULSE 62; RESP 18; O2SAT 94
[2019-05-05 10:46] VITALS: BP 162/83; BP 162/91; PULSE 62; RESP 18; TEMP 36.7; O2SAT 95
--- NOTE | 2019-05-05 11:08 | OP.PCM_ITS ---
Problem List (1) History of cholelithiasis Status: Acute Report of Operation Date of Procedure: 05/05/19 Pre-Operative Diagnosis: Cholelithiasis and right upper quadrant pain Post-Operative Diagnosis: Same Surgery/Procedure Performed:: Laparoscopic cholecystectomy Description of Procedure: After obtaining informed consent patient was brought back to the operating room. General anesthesia was induced. The abdomen was prepped and draped in usual sterile fashion. A small midline incision was made superior to the umbilicus and deepened to the level of fascia. The fascia was elevated and incised. Next the peritoneum was elevated and incised in the same fashion. Finger sweep was performed and the Pop trocar was placed into the abdomen. The balloon was inflated. The abdomen was inflated to 15 mmHg. Next a camera was introduced into the abdomen and the abdomen was inspected. Next under direct visualization three 5-mm ports were placed one subxiphoid and 2 subcostal. Next the gallbladder was elevated and retracted toward the right shoulder. The peritoneum was stripped from the gallbladder. The infundibulum was located and retracted laterally. Next the triangle of Calot was dissected and the cystic duct and cystic artery were identified. Cholangiograms were attempted but the patient's cystic duct was too short for a Ranfac catheter and the Dawkins clamp had leakage from the posterior gallbladder from a small hole from the Ranfac catheter needle. Three hemolock clips were placed across the cystic duct. The cystic duct was then divided leaving 2 clips on the stump. The cystic artery was clipped and divided in the same fashion. The hook cautery was then used to take the gallbladder off of the gallbladder bed. Hemostasis was obtained. Gallbladder fossa was irrigated and no active bleeding or bile leakage was noted. Next the camera switched to a 5 mm camera and introduced in the subxiphoid port. An Endopouch bag was placed through the umbilical port and the gallbladder was placed into it. The gallbladder was then removed through the umbilical incision. The camera was then reinserted through the umbilical port. The gallbladder fossa was inspected once more and noted to be hemostatic with no leaking bile. The abdomen was suctioned dry. The 5 mm ports were removed under direct visualization. The umbilical port was then removed and the air was removed from the abdomen. Next using an 0 Vicryl suture the umbilical fascia was closed in a [id number] fashion. The umbilical port site was irrigated local anesthetic was administered to all the incisions. All the incisions were closed with interrupted subcuticular 4-0 Monocryl sutures followed by Steri- Strips and dressings. The patient was awoken and taken to PACU in stable condit ion. - Admit VTE Documentation VTE Mechan Device Prophylaxis: SCD's
--- NOTE | 2019-05-05 11:10 | DCINST_ITS ---
Discharge Diet: Light diet - advance as tolerated Discharge Activity: Return to Normal Activity, May Not Drive - for 2-3 days or while taking narcotic pain medicataions., - - Do not drive, work heavy equipment or sign legal documents for 24 hours. May shower in (days): 1 - with the bandage in place. Lifting Restrictions: 20 lbs for 2 weeks Additional Activity Instructions:: Pain medication may cause nausea. You should typically eat light foods as you take your pain medications. Pain medication may also cause constipation. If this is a problem for you, please discuss with your doctor. Call your doctor if your incision/area has: Continuous Slow Oozing, Sudden Increased Bleeding, Increased Pain/ Swelling, Increased Redness, Foul Smelling Discharge, Fever of 101 or Higher Call your doctor if you observe: Fever of 101 or Higher Suture Line Care: Avoid Pulling/Pushing, Avoid Pinching/Bending Additional Dressing/Incision Instructions:: Leave operative bandaids on for 2 days. When you remove dressing, leave Steri-Strips on until your follow-up appointment, or until the Steri-Strips fall off on their own. Allergies/Adverse Reactions: Allergies No Known Allergies Allergy (Verified 05/04/19 08:00) Medications to take at Discharge Aspirin [Aspirin, Baby] 81 mg PO DAILY@0800 07/15/18 Ondansetron HCl [Zofran] 4 mg PO TID PRN PRN 07/15/18 Apixaban [Eliquis] 5 mg PO BID 08/04/18 Atorvastatin Calcium [Lipitor] 80 mg PO QHS 08/04/18 Insulin Aspart [Novolog Flexpen] See Protocol SQ 4X/DAY 08/04/18 docusate sodium 100 mg capsule 100 mg PO BID 04/14/19 gabapentin 100 mg capsule 100 mg PO TID 04/14/19 hydrocodone 5 mg-acetaminophen 325 mg tablet 1 tab PO BID PRN 04/14/19 melatonin 5 mg capsule 5 mg PO DAILY 04/14/19 torsemide 100 mg tablet 50 mg PO BID tab 04/14/19 Carvedilol [Coreg] 12.5 mg PO BID 05/04/19 Insulin Glargine,Hum.rec.anlog [Toucésar Solostar] 300 unit SQ 05/04/19 Potassium Bicarbonate/Cit AC [Effer-K 10 Meq Tablet Eff] 10 meq PO DAILY 05/04/19 hydrALAZINE [Apresoline] 25 mg PO BID 05/04/19 Hydrocodone/Acetaminophen [Hydrocodon-Acetaminophen 5-325] 1 - 2 tab PO Q6H PRN 5 Days #20 tablet 05/05/19 The following prescriptions were given: Hydrocodone/Acetaminophen [Hydrocodon-Acetaminophen 5-325] 1 - 2 tab PO Q6H PRN 5 Days #20 tablet PRN Reason: Pain Score 4-10/10 Transmission Status: Sent to [facility] Primary Care Physician: Page Sutton NP-C [Primary Care Provider] - Test Results: Test results from this visit will be discussed in further detail at your follow- up appointment, if applicable. Please Follow Up With: Sage Villanueva MD When: Please call to schedule 2 week follow up appointment. [phone]
[2019-05-05 16:41] VITALS: BP 162/79; BP 162/83; PULSE 81; RESP 18; TEMP 36.8; O2SAT 95
== END 2019-05-05 16:43 | disposition home or self-care (01) ==
LOC: SDC 07:10 → AC 07:10
PROVIDERS: Anesthesiology; PCP Nurse Practitioner Family; Referring Provider Surgery; Visit Provider Surgery
PROC: (CPT 47610; principal; 2019-05-05 08:40)
DX: K80.10 Calculus of gallbladder with chronic cholecystitis without obstruction (principal); I13.0 Hypertensive heart and chronic kidney disease with heart failure and stage 1 through stage 4 chronic kidney disease, or unspecified chronic kidney disease; I50.9 Heart failure, unspecified; I25.10 Atherosclerotic heart disease of native coronary artery without angina pectoris; E11.22 Type 2 diabetes mellitus with diabetic chronic kidney disease; N18.9 Chronic kidney disease, unspecified; E66.01 Morbid (severe) obesity due to excess calories; Z68.38 Body mass index [BMI] 38.0-38.9, adult; K21.9 Gastro-esophageal reflux disease without esophagitis; E78.00 Pure hypercholesterolemia, unspecified; Z95.5 Presence of coronary angioplasty implant and graft; J44.9 Chronic obstructive pulmonary disease, unspecified; Z99.81 Dependence on supplemental oxygen; Z86.718 Personal history of other venous thrombosis and embolism; Z79.4 Long term (current) use of insulin; Z79.82 Long term (current) use of aspirin; Z79.51 Long term (current) use of inhaled steroids; Z79.02 Long term (current) use of antithrombotics/antiplatelets; Z79.899 Other long term (current) drug therapy
CPT/HCPCS: 00790; 47563; 36415; 74300; 76000; 82962; 83036; 88304; 93005; J7040; J7120; J2405

== ENCOUNTER 2019-05-05 19:59 | Emergency (ER) | payer MEDICARE, MEDICAID, SELFPAY ==
[2019-05-05 07:56] VITALS: BMI 37.0
[2019-05-05 20:00] VITALS: BP 200/102; PULSE 74; RESP 18; TEMP 36.7; O2SAT 97; BMI 36.8
--- NOTE | 2019-05-05 20:22 | EKG12_ITS ---
Test Reason : DYSRTHYMIA Blood Pressure : / mmHG Vent. Rate : 079 BPM Atrial Rate : 079 BPM P-R Int : 226 ms QRS Dur : 088 ms QT Int : 402 ms P-R-T Axes : 062 023 033 degrees QTc Int : 460 ms Sinus rhythm with 1st degree A-V block Otherwise normal ECG Confirmed by GAYLA REYES, JOLLY ([id number]), scientific editor DC HOPSON ([id number]) on 05/09/2019 10:29:44 AM Referred By: TAMEKA Confirmed By:SWAPNA SHUKLA MD
--- NOTE | 2019-05-05 20:23 | ED.VIS.GI ---
History of Present Illness Chief Complaint: Nausea/Vomiting Informant: Patient - Abdominal Pain/Flank Pain Onset: Today Context: Gradual Onset Timing: Continuous Quality: Aching Location: Diffuse - Nausea/Vomiting/Emesis GI Symptom: Nausea, Vomiting Onset: Today Quality: Nonbilious. Negative for: Blood streaks, Coffee ground, Hematemesis Narrative: Patient is a 53-year-old female with history of stroke and subsequent cognitive delays presenting from home with nausea and vomiting after a cholecystectomy. Her cholecystectomy was performed today with Dr. chamorro. Her sister is at the bedside who helps with the history. Patient patient was in postop for about 6 hours waiting to urinate today. She did have some nausea and vomiting while she was in postop. She is continued on multiple episodes of vomiting for the past 2 hours since being home. She has some mild abdominal pain associated with her surgery today. No other known complications. No other complaints or concerns at this time. Patient has had intermittent headache for the past 2 weeks. States it feels like pressure over her left forehead. She denied any other complaints. Past Medical History - Allergies and Home Meds Allergies/Adverse Reactions: Allergies No Known Allergies Allergy (Verified 05/05/19 20:00) Primary Care Physician: Page Sutton NP-C [Primary Care Provider] - Past Medical History: - - Stroke, hypertension Surgical History: cholecystectomy, - - Coronary stents. Patient is confused and further history cannot be obtained. Lives: With Family - Sister Smoking Status: Never smoker - Family History Maternal Family History: Family History (Last Reviewed 04/28/19 @ 11:09 by Nell Bowden) Mother Diabetes Heart disease Hypertension Father Hypertension Heart disease Brother Heart disease Hypertension Sister Heart disease Diabetes Family History: Reports: Diabetes, Heart Disease Paternal Family History: Family History (Last Reviewed 04/28/19 @ 11:09 by Nell Bowden) Mother Diabetes Heart disease Hypertension Father Hypertension Heart disease Brother Heart disease Hypertension Sister Heart disease Diabetes Family History: Reports: Heart Disease, Hypertension Review of Systems General: Denies: Chills, Fever, Sweats Eyes: Denies: Visual changes - bilaterally, Diplopia ENT: Denies: Rhinorrhea, Sore throat Cardiovascular: Denies: Chest pain, Palpitations Respiratory: Denies: Dyspnea, Cough, Dyspnea on exertion Gastrointestinal: Reports: Abdominal pain, Nausea, Vomiting. Denies: Diarrhea, Melena, Hematochezia Genitourinary: Denies: Dysuria, Hematuria, Frequency Musculoskeletal: Denies: Back pain, Extremity Pain Skin: Denies: Rash, Wounds Neurological: Reports: Headache. Denies: Weakness, Numbness Physical Exam Vital Signs/Narrative: Vital Signs Temp Pulse Resp BP Pulse Ox 05/05/19 20:00 98.1 F 74 18 200/102 H 97 Inital Vital Signs reviewed: Yes General: Well nourished, Well developed, Obese, No Acute Distress Head: Normocephalic, Atraumatic Eyes: Perrl, EOMI ENT: Moist mucous membranes, No rhinorrhea, - - Normal tympanic membranes, effusion noted behind the left TM Neck: Supple, Nontender Cardiovascular: Regular rate, Regular rhythm, No murmurs Respiratory: No distress, CTA bilaterally, Chest nontender Abdomen: Soft, Nondistended, Normal bowel sounds, Tender - Mild tenderness of the abdomen diffusely, consistent with recent postoperative status. Negative for: Guarding, Rebound tenderness Back: Nontender, Normal Inspection Extremities: Nontender, No edema Skin: Normal color, No rash, - - Bandages over surgical port sites of abdomen, clean. No active bleeding Neurological: Alert, Oriented x3, Cranial nerves II-XII grossly intact, Normal Strength, Normal Sensation Psychological: Normal affect, Normal Mood Diagnostic/Tx/Re-eval Laboratory Data 05/05/19 05/05/19 20:41 20:41 WBC 12.9 H RBC 4.42 Hgb 12.1 Hct 37.2 MCV 84.2 MCH 27.4 MCHC 32.5 RDW Std Deviation 42.5 RDW Coeff of Chichi 13.8 Plt Count 184 MPV 12.8 H Immature Gran % (Auto) 0.400 Neut % (Auto) 91.8 H Lymph % (Auto) 4.2 L [place] % (Auto) 3.4 Eos % (Auto) 0.0 Baso % (Auto) 0.2 Absolute Neuts (auto) 11.8 H Absolute Lymphs (auto) 0.54 L Nucleated RBC % 0 Platelet Estimate ADEQUATE RBC Morphology N CHROM Anisocytosis RARE Sodium 138 Potassium 4.0 Chloride 104 Carbon Dioxide 29.0 Anion Gap 5 BUN 54 H Creatinine 2.21 H Estim Creat Clear Calc 22.21 Est GFR (MDRD) Af Amer 30 L Est GFR (MDRD) Non-Af 25 L BUN/Creatinine Ratio 24.4 H Glucose 194 H Calcium 8.4 L Total Bilirubin 0.40 AST 61 H ALT 64 H Alkaline Phosphatase 78 Troponin I < 0.015 Total Protein 6.1 L Albumin 2.6 L Globulin 3.5 Albumin/Globulin Ratio 0.7 L Lipase 79 - Rhythm Strip Rhythm Strip: Sinus Rhythm Rate: 79 Ectopy: None - EKG Initial EKG Interpretation: Sinus Rhythm, - - Normal sinus rhythm at a rate of 79 Normal intervals Normal axis Normal ST segments No change prior to prior EKG on 08/04/2018 or earlier today - Medical Decision Making Patient is evaluated for nausea and reported vomiting. She had a cholecystectomy today. Discussed with her surgeon, Dr. Villanueva who states patient surgery went very well and she did not have any significant complications. Postoperatively she only had urinary retention. Patient does not have any vomiting while in the emergency room. She is given IV fluids and Zofran. I did check a CBC, CMP and lipase. These are all expected given her postoperative state but unremarkable. Her abdomen is soft and appropriately tender for her recent surgery. Patient does not vomit after drinking water in the emergency room. She does have one episode where she was drinking water laying down and coughed some up. Patient is stable and I think does not require admission. She be discharged home. She already has a prescription for Zofran at home. Family is agreeable with this. Patient and family are counseled on signs and symptoms require return emergency room. They verbalized agreement understand this plan. Patient discharged home in stable condition. ED Disposition - Plan for ED Patient: Disposition: Home or Assisted Living Diagnosis: Postoperative nausea Instructions: DIET, Vomiting or Diarrhea [6yr-Adult], VOMITING (6y-Adult) Referrals: Page Sutton NP-C [Primary Care Provider] - Additional Instructions: Take your normal insulin medications. Take the Zofran that you have at home for your nausea. Try to drink plenty of fluids throughout the next day. Return emergency room if your symptoms worsen or if you cannot keep water down.
[2019-05-05 21:01] LABS: Absolute Lymphocyte Count 0.54 X10^3/uL (0.83-4.51); Absolute Neutrophil Count 11.8 X10^3/uL (2.0-7.7); Basophil# 0.02 X10^3/uL; Basophil% 0.2 % (0-1); Hematocrit 37.2 % (37-47); Hemoglobin 12.1 g/dL (12.0-15.0); Lymphocyte # 0.54 X10^3/ul (4.0); Lymphocyte % 4.2 % (19-41); Mean Corp Hgb Conc 32.5 g/dL (32-36); Mean Corpuscular Hgb 27.4 pg (27.0-32.0); Mean Corpuscular Volume 84.2 fL (81-99); Mean Platelet Vol. 12.8 fl (6.2-12.0); Monocyte# 0.44 X10^3/uL; Monocyte% 3.4 % (0-10); NRBC Flagged by Analyzer 0 % (0-5); Neutrophil % 91.8 % (47-70); POSITIVE DIFFERENTIAL YES; Platelet Count 184 K/mm3 (150-450); RBC Distribution Width CV 13.8 % (11.6-14.6); RBC Distribution Width SD 42.5 fl (35.1-43.9); Red Blood Count 4.42 M/mm3 (4.2-5.4); White Blood Count 12.9 K/mm3 (4.4-11.0)
[2019-05-05 21:15] LABS: ALB/GLOB Ratio 0.7 RATIO (0.9-2.4); AST(SGOT) 61 U/L (15-37); Alanine Aminotransfer ALT/SGPT 64 U/L (13-56); Albumin, Serum 2.6 g/dL (3.2-5.0); Alkaline Phosphatase 78 U/L (45-117); Anion Gap 5 (5-15); BUN 54 mg/dL (7-18); BUN/Creat Ratio 24.4 RATIO (10-20); Calcium,Total 8.4 mg/dL (8.5-10.1); Chloride 104 mmol/L (98-107); Creatinine, Serum 2.21 mg/dL (0.55-1.02); EST Glomerular Filtration Rate 25 mL/min (>60); Est Glom Filt Rate - Afr Amer 30 mL/min (>60); Estimated Creatinine Clearance 22.21 ml/min; Globulin 3.5 g/dL (2.2-4.2); Glucose 194 mg/dL (74-106); Lipase 79 U/L (73-393); Protein, Total 6.1 g/dL (6.4-8.2); Sodium Level 138 mmol/L (136-145)
[2019-05-05 21:20] LABS: Differential Indicated SCAN CRITERIA MET
[2019-05-05] MEDS: 0.9% Normal Saline 1,000 ML 1000 ML IV (21:26)
[2019-05-05] MEDS: Ondansetron 4 MG/2 ML Vial IV ×2 (21:26→23:17)
[2019-05-05 21:28] LABS: Anisocytosis RARE
[2019-05-05 21:29] LABS: Platelet Estimate ADEQUATE (ADEQ)
[2019-05-05 21:30] LABS: Red Cell Morphology N CHROM NORMAL (NORM C&C)
[2019-05-05 22:23] VITALS: BP 174/61; PULSE 84; RESP 14; O2SAT 98
[2019-05-05 22:53] VITALS: BP 174/61; PULSE 84; RESP 14; O2SAT 98
== END 2019-05-05 23:38 | disposition home or self-care (01) ==
PROVIDERS: Emergency Provider Emergency Medicine; PCP Nurse Practitioner Family
DX: K91.0 Vomiting following gastrointestinal surgery (principal); K80.10 Calculus of gallbladder with chronic cholecystitis without obstruction; I63.9 Cerebral infarction, unspecified; I69.319 Unspecified symptoms and signs involving cognitive functions following cerebral infarction; Z90.49 Acquired absence of other specified parts of digestive tract; I13.0 Hypertensive heart and chronic kidney disease with heart failure and stage 1 through stage 4 chronic kidney disease, or unspecified chronic kidney disease; I50.9 Heart failure, unspecified; I25.10 Atherosclerotic heart disease of native coronary artery without angina pectoris; E11.22 Type 2 diabetes mellitus with diabetic chronic kidney disease; N18.9 Chronic kidney disease, unspecified; E66.01 Morbid (severe) obesity due to excess calories; Z68.38 Body mass index [BMI] 38.0-38.9, adult; K21.9 Gastro-esophageal reflux disease without esophagitis; E78.00 Pure hypercholesterolemia, unspecified; Z95.5 Presence of coronary angioplasty implant and graft; J44.9 Chronic obstructive pulmonary disease, unspecified; Z99.81 Dependence on supplemental oxygen; Z86.718 Personal history of other venous thrombosis and embolism; Z79.4 Long term (current) use of insulin; Z79.82 Long term (current) use of aspirin; Z79.51 Long term (current) use of inhaled steroids; Z79.02 Long term (current) use of antithrombotics/antiplatelets; Z79.899 Other long term (current) drug therapy
CPT/HCPCS: 00790; 47563; 36415; 74300; 76000; 80053; 82962; 83036; 83690; 84484; 85025; 88304; 93005; 96361; 96374; 96376; 99283; J7030; J7040; J7120; A4216; J2405

== ENCOUNTER → 2019-05-19 | Outpatient (CLI) | payer MEDICARE, MEDICAID, SELFPAY ==
[2019-04-28 07:15] VITALS: BMI 39.4
[2019-05-05 20:00] VITALS: BMI 36.8
[2019-05-19 08:30] VITALS: PULSE 69; PULSE 76; PULSE 77; PULSE 82; PULSE 86; PULSE 89; PULSE 90; O2SAT 97; O2SAT 98; O2SAT 99
--- NOTE | 2019-05-19 14:56 | PCM.PSN.6M ---
PSN 6 Minute Walk Test - 6 Minute Walk Test 6 Minute Walk Test: 6 Minute Walk Test PSN:6-Minute Walk Test Start: 05/19/19 08:34 Freq: Status: Active Protocol: RESP.6MINW Document 05/19/19 08:30 EW (Rec: 05/19/19 09:22 EW [id number]) 6 Minute Walk Test Date Performed 05/19/19 Time Performed 08:30 Height 5 ft 3 in Weight: 89.358 kg Weight in Pounds 197.[address]: Bobby Irizarry Assistive device used: None Pre-test Oxygen Delivery Method Room Air Pulse Ox (%) 98 Pulse Rate (60-100 beats/min) 69 Dyspnea Mason Scale (0-10) 1 Exertion Mason Scale (6-20) 8 1st minute Oxygen Delivery Method Room Air Pulse Ox (%) 99 Pulse Rate (60-100 beats/min) 77 2nd minute Oxygen Delivery Method Room Air Pulse Ox (%) 98 Pulse Rate (60-100 beats/min) 82 3rd minute Oxygen Delivery Method Room Air Pulse Ox (%) 97 Pulse Rate (60-100 beats/min) 86 4th minute Oxygen Delivery Method Room Air Pulse Ox (%) 98 Pulse Rate (60-100 beats/min) 89 5th minute Oxygen Delivery Method Room Air Pulse Ox (%) 98 Pulse Rate (60-100 beats/min) 89 6th minute Oxygen Delivery Method Room Air Pulse Ox (%) 97 Pulse Rate (60-100 beats/min) 90 Post-test Oxygen Delivery Method Room Air Pulse Ox (%) 98 Pulse Rate (60-100 beats/min) 76 Dyspnea Mason Scale (0-10) 2 Exertion Mason Scale (6-20) 11 Full Laps Walked 13 Partial Lap, Number of Tiles Walked 25 Total Distance Walked (ft) 792 - Interpretation Interpretation: Patient was able to ambulate 792 feet over the course of 6 minutes on room air with no assistive devices or breaks. No significant desaturation or tachycardia was noted. These findings are consistent with a musculoskeletal limitation exercise tolerance. - Recommendations Recommendations: No supplemental oxygen is indicated at this time.
== END | disposition home or self-care (01) ==
LOC: PSN 08:15
PROVIDERS: PCP Nurse Practitioner Family; Referring Provider Internal Medicine Critical Care Medicine; Visit Provider Internal Medicine Critical Care Medicine
DX: J96.11 Chronic respiratory failure with hypoxia (principal)
CPT/HCPCS: 94618

== ENCOUNTER 2019-07-24 18:28 | Emergency (ER) | payer MEDICARE, MEDICAID, SELFPAY ==
[2019-05-26 09:21] VITALS: BMI 35.4
[2019-07-24 18:29] VITALS: BP 120/95; PULSE 70; RESP 18; TEMP 36.8; O2SAT 97; BMI 34.4
--- NOTE | 2019-07-24 18:49 | CT_ITS ---
STUDY: CT BRAIN WITHOUT CONTRAST REASON FOR EXAM: Female, 53 years old. [facility]/SUDDEN ONSET SHAKING ARMS/LEGS/HEAD. Prev left MCA stroke 05/18 RADIATION DOSAGE (If Supplied By Facility): CTDIvol = ( 44.99 ) mGy, DLP = ( 728.62 ) mGycm TECHNIQUE: Transaxial CT imaging of the brain was performed without administration of intravenous contrast material. Individualized dose optimization techniques were used for this CT. COMPARISON: Prior head CT exam of August 04, 2018 FINDINGS: Normal soft tissue structures. Normal calvarium. Normal size ventricles and extra-axial spaces for the patient''s age. Well demarcated region of encephalomalacia in the left temporal parietal and lateral occipital lobe consistent with an old infarct in branches of the left middle cerebral artery. Negative for extension of the infarct territory or hemorrhage. Normal basal ganglia and thalami. Normal brainstem. Normal cerebellum. There is no intracranial hemorrhage. There are no findings of an acute ischemic infarction. Completely opacified right maxillary sinus. Opacified mid and anterior right ethmoid sinuses and an opacified right frontal sinus. Normal temporal bones. CT/Brain/Head without Contrast IMPRESSION: No acute intracranial findings. Negative for hemorrhage, hematoma or extra-axial fluid collection. Negative for mass density. 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 Sinus findings as stated above are new since August 04, 2018. Electronically Signed: Adriana Lamas MD at 19:25 EDT , Service support ,
[2019-07-24] MEDS: Acetaminophen 500 MG Tablet 1000 MG PO (18:54)
[2019-07-24] MEDS: LORazepam 1 MG Tablet PO (18:55)
--- NOTE | 2019-07-24 19:42 | ED.DCSUM_ITS ---
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 She reports that approximately an hour and a half ago after dinner her head began shaking and she has pain in the left occipital region. She is unable describe the quality of the pain. She reports is 10 on 10 in severity. His work is done by shaking her head. Is relieved by holding still. The patient was discussed with her power of deputy prosecuting attorney who reports that when patient does not get enough sleep or is stressed out she has the symptoms. She denies any seizure activity. She reports patient is under a great deal of stress that her mother has and her birthday was 2 days ago. Physical Examination: Vitals: Stable. Afebrile. General: Well-nourished and well-developed. Head: Normocephalic atraumatic. Neck: Supple, no lymphadenopathy. No JVD. Nontender. Cardiovascular: Regular rate and rhythm. No murmurs. Respiratory: No respiratory distress. Clear to auscultation bilaterally. Abdominal: Soft, nontender, nondistended, normal bowel sounds. No guarding, rebound, or peritoneal signs. Back: Nontender. Extremities: Nontender, no edema. Skin: Normal color, no rash. Neurologic: Alert and oriented ?3. Cranial nerves II through XII are intact. Normal strength and sensation. Psych: Normal affect. Test Results: Clinical Impression(s) from Imaging Studies Brain CT 07/24/19 18:49 IMPRESSION: No acute intracranial findings. Negative for hemorrhage, hematoma or extra-axial fluid collection. Negative for mass density. 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 Sinus findings as stated above are new since August 04, 2018. Electronically Signed: Adriana Lamas MD at 19:25 EDT , Service support , Emergency Department Course and Treatment: Patient does have a history of a stroke. With the abrupt onset of the headache and her being on Eliquis I do think that a CT of her head is indicated. This does not show any intracranial hemorrhage. Patient was given a dose of Ativan and Tylenol p.o. She is resting comfortably. Patient has no difficulty breathing through her nose. She denies congestion. I do not think that putting her on an antibiotic for the sinus findings on the CT is in her best interest. Treatment Plan: Patient be discharged instructed to follow-up with her primary care physician 1 to 2 days if not improving. Return to the emergency department for any worsening symptoms. Disposition: To home in improved and stable condition. Impression: 1. Cephalgia. 2. Coagulopathy on Eliquis. This note was generated with [employer]ob[employer] dictation software. It may contain incorrect words, spelling, and punctuation that were not noted in review of the chart prior to signing ED Disposition - Plan for ED Patient: Disposition: Home or Assisted Living Instructions: ED CEPHALGIA Tension Headache Referrals: Page Sutton NP-C [Primary Care Provider] - 1-2 Days if not improving
[2019-07-24 20:20] VITALS: BP 133/73; PULSE 64; RESP 16; O2SAT 96
== END 2019-07-24 20:25 | disposition home or self-care (01) ==
LOC: ED 19:25
PROVIDERS: Emergency Provider Emergency Medicine; PCP Nurse Practitioner Family
DX: R51 Headache (principal); Z86.73 Personal history of transient ischemic attack (TIA), and cerebral infarction without residual deficits; Z79.02 Long term (current) use of antithrombotics/antiplatelets; I25.10 Atherosclerotic heart disease of native coronary artery without angina pectoris; I11.0 Hypertensive heart disease with heart failure; I15.0 Renovascular hypertension; K21.9 Gastro-esophageal reflux disease without esophagitis; E11.9 Type 2 diabetes mellitus without complications; F32.9 Major depressive disorder, single episode, unspecified; Z79.4 Long term (current) use of insulin; Z79.82 Long term (current) use of aspirin; Z79.899 Other long term (current) drug therapy
CPT/HCPCS: 70450; 99285

== ENCOUNTER 2019-11-27 11:14 | Inpatient (IN) | payer MEDICARE, MEDICAID, SELFPAY ==
[2019-11-27] VITALS (10 sets, daily range): BP systolic 160–202; BP diastolic 61–91; PULSE 52–66; RESP 15–17; TEMP 36.2–36.8; O2SAT 95–99; BMI 36.3; BMI 35.8
--- NOTE | 2019-11-27 11:47 | CT_ITS ---
STUDY: CT BRAIN WITHOUT CONTRAST REASON FOR EXAM: Female, 53 years old. BRANTLEY SINCE THURSDAY, HX-LT MCA STROKE, HTN, DB, CKD RADIATION DOSAGE (If Supplied By Facility): CTDIvol = ( 44.99 ) mGy, DLP = ( 745.49 ) mGycm TECHNIQUE: Transaxial CT imaging of the brain was performed without administration of intravenous contrast material. Individualized dose optimization techniques were used for this CT. COMPARISON: 07/24/2019 FINDINGS: Normal soft tissue structures. Normal calvarium. Normal size ventricles and extra-axial spaces for the patient''s age. Stable left encephalomalacia. Normal white matter tracts of the cerebral hemispheres. Normal basal ganglia and thalami. Normal brainstem. Normal cerebellum. There is no intracranial hemorrhage. There are no findings of an acute ischemic infarction. Normal visualized paranasal sinuses. CT/Brain/Head without Contrast IMPRESSION: Stable chronic changes of the brain. Electronically Signed: Rubens Nielsen DO at 14:17 EDT Tel [phone], Service support ,
--- NOTE | 2019-11-27 11:48 | EKG12_ITS ---
Test Reason : Blood Pressure : / mmHG Vent. Rate : 052 BPM Atrial Rate : 052 BPM P-R Int : 220 ms QRS Dur : 084 ms QT Int : 500 ms P-R-T Axes : 027 010 035 degrees QTc Int : 465 ms Sinus bradycardia with 1st degree A-V block Low voltage QRS (Limb Leads) Nonspecific T-Wave Abnormality Confirmed by KRISTINA REYES, CORINE ([id number]), science editor CAROLYN GROSS ([id number]) on 12/01/2019 11:24:23 AM Referred By: ROBNY Confirmed By:CORINE ACEVEDO MD
--- NOTE | 2019-11-27 11:50 | ED.VIS.GEN ---
History of Present Illness Chief Complaint: Headache Informant: Patient, Family Onset: Days Context: Gradual Onset Timing: Continuous Narrative: Patient is a 53-year-old female with history of stroke on Eliquis as well as hypertension presenting with headache. Patient states she had headache for the past 3 days it is in the front of her head as well as the back of her head. It is been gradually worsening since it started. It was not sudden onset maximum intensity. Patient states it feels like a pounding in her head. He denies any associated photophobia, nausea or vomiting. She denies any neck pain or fevers. She states her blood pressures been high for the past week and her doctor recently increased 1 of her blood pressure pills to 150. Patient took her blood pressure medicine this morning. Her sister helps take care of her. Patient states that yesterday she forgot where she was but then realized that she was home. Patient denies any extremity weakness or numbness but notes that she does feel generally weak. Past Medical History - Allergies and Home Meds Allergies/Adverse Reactions: Allergies No Known Allergies Allergy (Verified 11/27/19 11:15) Past Medical History: - - History of left MCA stroke, congestive heart failure, depression, hypertension, GERD, type 2 diabetes mellitus Surgical History: cholecystectomy, - - Coronary stents. Patient is confused and further history cannot be obtained. Lives: With Family Smoking Status: Never smoker - Family History Maternal Family History: Family History (Last Reviewed 11/27/19 @ 16:55 by TERESA Elizondo) Mother Diabetes Heart disease Hypertension Father Hypertension Heart disease Brother Heart disease Hypertension Sister Heart disease Diabetes Family History: Reports: Diabetes, Heart Disease Paternal Family History: Family History (Last Reviewed 11/27/19 @ 16:55 by TERESA Elizondo) Mother Diabetes Heart disease Hypertension Father Hypertension Heart disease Brother Heart disease Hypertension Sister Heart disease Diabetes Family History: Reports: Heart Disease, Hypertension Review of Systems General: Denies: Chills, Fever, Sweats Eyes: Denies: Visual changes - bilaterally, Diplopia ENT: Denies: Rhinorrhea, Sore throat Cardiovascular: Denies: Chest pain, Palpitations Respiratory: Denies: Dyspnea, Cough, Dyspnea on exertion Gastrointestinal: Denies: Abdominal pain, Nausea, Vomiting, Diarrhea, Melena, Hematochezia Genitourinary: Denies: Dysuria, Hematuria, Frequency Musculoskeletal: Denies: Back pain, Extremity Pain Skin: Denies: Rash, Wounds Neurological: Reports: Headache. Denies: Weakness, Numbness Physical Exam Vital Signs/Narrative: Vital Signs Temp Pulse Resp BP Pulse Ox 11/27/19 11:16 97.2 F L 56 L 17 202/91 H 99 Inital Vital Signs reviewed: Yes General: Well nourished, Well developed, No Acute Distress Head: Normocephalic, Atraumatic Eyes: Perrl, EOMI, - - No nystagmus ENT: Moist mucous membranes, No rhinorrhea Neck: Supple, Nontender Cardiovascular: Regular rate, Regular rhythm, No murmurs Respiratory: No distress, CTA bilaterally, Chest nontender Abdomen: Soft, Nontender, Nondistended, Normal bowel sounds Back: Nontender, Normal Inspection Extremities: Nontender, No edema Skin: Normal color, No rash Neurological: Alert, Oriented x3, Cranial nerves II-XII grossly intact, Normal Strength, Normal Sensation, - - NIH equals 0 Psychological: Normal affect, Normal Mood Diagnostic/Tx/Re-eval Chest X-Ray - ED: 1 View, Read by ED Physician, Read by Radiologist, No Acute Disease Clinical Impression(s) from Imaging Studies Brain CT 11/27/19 11:47 IMPRESSION: Stable chronic changes of the brain. Electronically Signed: Rubens Nielsen DO at 14:17 EDT Tel [phone], Service support , Chest X-Ray 11/27/19 12:05 IMPRESSION: Normal x-ray examination of the chest. Electronically Signed: Hermes Mao MD at 12:56 EDT Tel , Service support , Laboratory Data 11/27/19 11/27/19 11/27/19 12:15 12:15 12:15 WBC 7.0 RBC 4.59 Hgb 13.1 Hct 40.6 MCV 88.5 MCH 28.5 MCHC 32.3 RDW Std Deviation 44.9 H RDW Coeff of [place] 13.9 Plt Count 159 MPV 13.0 H Immature Gran % (Auto) 0.300 Neut % (Auto) 67.7 Lymph % (Auto) 20.4 [place] % (Auto) 8.0 Eos % (Auto) 3.3 Baso % (Auto) 0.3 Absolute Neuts (auto) 4.8 Absolute Lymphs (auto) 1.43 Nucleated RBC % 0 PT 14.3 INR 1.2 APTT 29.9 Sodium 141 Potassium 4.1 Chloride 107 Carbon Dioxide 29.0 Anion Gap 5 BUN 66 H Creatinine 2.30 H Estim Creat Clear Calc 22.37 Est GFR (MDRD) Af Amer 28 L Est GFR (MDRD) Non-Af 24 L BUN/Creatinine Ratio 28.7 H Glucose 141 H Calcium 8.1 L Troponin I < 0.015 Urine Color Urine Clarity Urine pH Ur Specific [place] Urine Protein Urine Glucose (UA) Urine Ketones Urine Occult Blood Urine Nitrite Urine Bilirubin Urine Urobilinogen Ur Leukocyte Esterase Urine RBC Urine WBC Ur Squamous Epith Cells Urine Bacteria Urine Mucus 11/27/19 12:25 WBC RBC Hgb Hct MCV MCH MCHC RDW Std Deviation RDW Coeff of [place] Plt Count MPV Immature Gran % (Auto) Neut % (Auto) Lymph % (Auto) [place] % (Auto) Eos % (Auto) Baso % (Auto) Absolute Neuts (auto) Absolute Lymphs (auto) Nucleated RBC % PT INR APTT Sodium Potassium Chloride Carbon Dioxide Anion Gap BUN Creatinine Estim Creat Clear Calc Est GFR (MDRD) Af Amer Est GFR (MDRD) Non-Af BUN/Creatinine Ratio Glucose Calcium Troponin I Urine Color Straw Urine Clarity Clear Urine pH 6.0 Ur Specific [place] 1.010 Urine Protein 100 H Urine Glucose (UA) Normal Urine Ketones Negative Urine Occult Blood Negative Urine Nitrite Negative Urine Bilirubin Negative Urine Urobilinogen Normal Ur Leukocyte Esterase Negative Urine RBC 0 SEEN Urine WBC 0 SEEN Ur Squamous Epith Cells 0-5 SEEN Urine Bacteria 0 SEEN Urine Mucus 0 SEEN - Rhythm Strip Rhythm Strip: Sinus Rhythm Rate: 52 Ectopy: None - EKG Initial EKG Interpretation: Sinus Bradycardia, - - Bradycardia at a rate of 52 with a first-degree AV block. MO interval 222 QRS 84 QTc [address] segments Compared to prior EKG on 05/05/2019 patient is now bradycardic with no other changes - Medical Decision Making Patient is evaluated for headache that is been worsening over the past 3 to 4 days. She does have a history of stroke and is on Eliquis. No reports of any head trauma. She has no focal neurologic deficits. But is complained of some generalized weakness. She does not have any meningeal signs. Patient is quite hypertensive the emergency room with systolics around 200. She does not have any improvements and is actually given hydralazine with only minimal improvement of her blood pressure. Patient is treated for headache with Benadryl and Compazine with mild improvement. My concern is that patient might have malignant hypertension or uncontrolled hypertension coming she was her headache. In addition patient just had a blood pressure medication increase and continues to have significantly elevated blood pressure. I believe she would benefit from admission for further blood pressure control as well. Patient is admitted to medicine service is agreeable with plan. ED Disposition - Plan for ED Patient: Disposition: [facility] Diagnosis: Headache, Malignant hypertension, Chronic kidney disease
--- NOTE | 2019-11-27 12:05 | RAD_ITS ---
STUDY: X-RAY CHEST REASON FOR EXAM: Female, 53 years old. HEADACHE SINCE THURSDAY. -- HX OF CVA TECHNIQUE: Single AP portable view of the chest. COMPARISON: 08/04/2018 FINDINGS: The lungs are clear and expanded. There is no demonstrated pleural abnormality. Normal size heart. Normal mediastinum and kristi. Normal visualized pulmonary arteries. Normal visualized aortic arch and descending thoracic aorta. Normal visualized thoracic spine. Normal visualized ribs, clavicles, and shoulders. There is no demonstrated abnormality of the visualized soft tissue structures of the upper abdomen. RAD/Chest 1 View (Portable) IMPRESSION: Normal x-ray examination of the chest. Electronically Signed: Hermes Mao MD at 12:56 EDT Tel , Service support ,
[2019-11-27] MEDS: DiphenhydrAMINE 50 MG/ML Syringe 25 MG IV (12:22)
[2019-11-27] MEDS: proCHLORPERazine 10 MG/2 ML Vial IV (12:22)
[2019-11-27 12:33] LABS: Bacteria 0 SEEN /hpf (None Seen); Mucous, Urine 0 SEEN /hpf (<or=2+); Red Blood Cells-Urine 0 SEEN /hpf (0-5); White Blood Cells 0 SEEN /hpf (0-5)
[2019-11-27 12:35] LABS: International Normalized Ratio 1.2; Prothrombin Time (Protime)PT. 14.3 SECONDS (11.7-14.9)
[2019-11-27 12:36] LABS: Partial Thromboplast Time 29.9 Seconds (24.1-36.2)
[2019-11-27 12:37] LABS: Absolute Lymphocyte Count 1.43 X10^3/uL (0.83-4.51); Absolute Neutrophil Count 4.8 X10^3/uL (2.0-7.7); Basophil# 0.02 X10^3/uL; Basophil% 0.3 % (0-1); Eosinophil# 0.23 X10^3/uL; Eosinophils% 3.3 % (0-5); Hematocrit 40.6 % (37-47); Hemoglobin 13.1 g/dL (12.0-15.0); Lymphocyte # 1.43 X10^3/ul (4.0); Lymphocyte % 20.4 % (19-41); Mean Corp Hgb Conc 32.3 g/dL (32-36); Mean Corpuscular Hgb 28.5 pg (27.0-32.0); Mean Corpuscular Volume 88.5 fL (81-99); Monocyte# 0.56 X10^3/uL; NRBC Flagged by Analyzer 0 % (0-5); Neutrophil # 4.76 X10^3/uL (2.7-7.7); Neutrophil % 67.7 % (47-70); Platelet Count 159 K/mm3 (150-450); RBC Distribution Width CV 13.9 % (11.6-14.6); RBC Distribution Width SD 44.9 fl (35.1-43.9); Red Blood Count 4.59 M/mm3 (4.2-5.4)
[2019-11-27 12:38] LABS: Color, Urine Straw (Yellow); Glucose, Dipstick Normal (Normal); Ketone-Dipstick Negative (Negative); Leukocyte Esterase-Dipstick Negative /ul (Negative); Nitrite-Dipstick Negative (Negative); Occult Blood-Urine Negative /ul (Negative); Protein-Dipstick 100 mg/dl (Negative); Urine Bilirubin Dipstick Negative (Negative); Urine Clarity Clear (Clear); Urine Urobilinogen Normal (Normal)
[2019-11-27 12:43] LABS: Anion Gap 5 (5-15); BUN 66 mg/dL (7-18); BUN/Creat Ratio 28.7 RATIO (10-20); Calcium,Total 8.1 mg/dL (8.5-10.1); Chloride 107 mmol/L (98-107); EST Glomerular Filtration Rate 24 mL/min (>60); Est Glom Filt Rate - Afr Amer 28 mL/min (>60); Estimated Creatinine Clearance 22.37 ml/min; Glucose 141 mg/dL (74-106); Potassium 4.1 mmol/L (3.5-5.1); Sodium Level 141 mmol/L (136-145)
[2019-11-27 12:46] LABS: Squamous Epithelial Cells - UA 0-5 SEEN /hpf (5-10)
[2019-11-27] MEDS: hydrALAZINE 20 MG/ML Vial 10 MG IV (15:13)
--- NOTE | 2019-11-27 16:43 | HP.PCM_ITS ---
<Grcaie Guzmán - Last Filed: 11/27/19 17:03> Problem List (1) Essential hypertension Status: Chronic (2) Atherosclerosis of coronary artery of [place] heart without angina pectoris Status: Chronic (3) History of PTCA Status: Chronic Comment: PTCA to left anterior descending artery and left obtuse marginal 1 artery with a KWAKU. A total of two KWAKU's to the proximal LAD and 1 to the obtuse marginal 1. (4) History of left heart catheterization Status: Chronic Comment: 07/01/2016, [facility], operated by [facility] (5) Congestive heart failure Status: Chronic History of Present Illness Date of Admission: 11/27/19 Chief Complaint: Headache, elevated blood pressure. The patient is a 53 year old F who presents to the emergency room due to 3-day history of headache and elevated blood pressure. Patient reports headache across her forehead, throbbing in nature. Denies any aggravating or alleviating factors. Daughter at bedside states patient's blood pressure has been high. Patient states she has been taking her medication at home. Patient has a very flat affect and refers to her daughter during HPI. Daughter states she recently moved to [place] and does not know patient's medical history. Patient denies chest pain, shortness of breath. She reports associated nausea, denies emesis. Denies other associated symptoms. She has a past medical history of CAD with history of stent to LAD and circumflex in 2017, hypertension, hyperlipidemia, CVA, chronic diastolic CHF, history of DVT, chronic kidney disease stage IV. Past Medical History Past Medical History (Chronic Problems): Chronic Problems (Last Reviewed 05/26/19 @ 09:29 by Arabella Painter) Essential hypertension (Chronic) Atherosclerosis of coronary artery of [place] heart without angina pectoris (Chronic) History of PTCA (Chronic) PTCA to left anterior descending artery and left obtuse marginal 1 artery with a KWAKU. A total of two KWAKU's to the proximal LAD and 1 to the obtuse marginal 1. History of left heart catheterization (Chronic) 07/01/2016, [facility], operated by [facility] Congestive heart failure (Chronic) Medical History: Medical History (Last Reviewed 05/26/19 @ 09:29 by Arabella Painter) Essential hypertension (Chronic) I10 Atherosclerosis of coronary artery of [place] heart without angina pectoris (Chronic) I25.10 Congestive heart failure (Chronic) I50.9 Depression F32.9 GERD (gastroesophageal reflux disease) K21.9 History of renal calculi Z87.442 Kidney disease N28.9 Morbid obesity E66.01 Type 2 diabetes mellitus without complication E11.9 Acute ischemic left MCA stroke I63.512 April 2018 Acute kidney injury N17.9 Acute renal injury due to circulatory failure (Resolved) N17.9, I99.8 History of CVA (cerebrovascular accident) Z86.73 History of cholelithiasis (Resolved) Z87.19 Asthma J45.909 Community acquired bacterial pneumonia J15.9 Allergies No Known Allergies Allergy (Verified 11/27/19 11:15) Home Medications: Ambulatory Orders Medication Instructions Recorded Aspirin [Aspirin, Baby] 81 mg PO DAILY@0800 07/15/18 Apixaban [Eliquis] 5 mg PO BID 08/04/18 Atorvastatin Calcium [Lipitor] 80 mg PO QHS 08/04/18 Insulin Aspart [Novolog Flexpen] See Protocol SQ 4X/DAY 08/04/18 docusate sodium 100 mg capsule 100 mg PO BID PRN 04/14/19 torsemide 100 mg tablet 50 mg PO DAILY tab 04/14/19 Carvedilol [Coreg] 12.5 mg PO BID 05/04/19 hydrALAZINE [Apresoline] 25 mg PO BID 05/04/19 insulin glargine U-300 conc 300 See Rx Instructions SC QHS 05/26/19 unit/mL (1.5 mL) subcutaneous pen Amlodipine [Norvasc] 10 mg PO DAILY 07/24/19 Surgical History: Surgical History (Last Reviewed 11/27/19 @ 16:55 by TERESA Elizondo) History of PTCA (Chronic) Z98.61 PTCA to left anterior descending artery and left obtuse marginal 1 artery with a KWAKU. A total of two KWAKU's to the proximal LAD and 1 to the obtuse ma rginal 1. History of left heart catheterization (Chronic) Z98.890 07/01/2016, [facility], operated by [facility] S/P appendectomy Z90.49 S/P section Z98.891 x 2 S/P laparoscopic cholecystectomy Z90.49 05/19 Psychiatric History: No pertinent psych hx ORACLE SPECIALIST History: No pertinent ORACLE SPECIALIST history Lives: With Family Smoking Status: Never smoker Alcohol: None Drugs: None - *Family History Maternal Family History: Family History (Last Reviewed 11/27/19 @ 16:55 by TERESA Elizondo) Mother Diabetes Heart disease Hypertension Father Hypertension Heart disease Brother Heart disease Hypertension Sister Heart disease Diabetes History Items: Diabetes, Heart Disease Paternal Family History: Family History (Last Reviewed 11/27/19 @ 16:55 by TERESA Elizondo) Mother Diabetes Heart disease Hypertension Father Hypertension Heart disease Brother Heart disease Hypertension Sister Heart disease Diabetes History Items: Heart Disease, Hypertension Review of Systems Constitutional: Denies: Chills, Fever, Weight Change HEENT: Reports: Head Aches. Denies: Sinus Congestion, Sinus Drainage Cardiovascular: Denies: Chest Pain, Edema, Light Headedness, Palpitations, Syncope Respiratory: Denies: Cough, Shortness of breath at rest, Sputum production Gastrointestinal: Denies: Abdominal Pain, Nausea, Vomiting Genitourinary: Denies: Dysuria Musculoskeletal: Denies: Joint Pain, Joint Tenderness Skin: Denies: Rash, Wounds Neurological: Denies: Numbness, Tingling, Focal weakness Psychiatric: Denies: Anxiety, Depression, Homicidal Ideations, Suicidal Ideations Hematologic/ Lymphatic: Denies: Easy Bruising, Easy Bleeding VTE Information - Inpt Only VTE Present on Admission: No VTE Mechan Device Prophylaxis: None VTE Pharm Prophylaxis ordered?: No Reason prophylaxis not ordered:: Treatment Not Indicated - Already on anticoagulation with Eliquis - Physical Exam Vitals/I&O's: Vital Signs Temp Pulse Resp BP Pulse Ox 97.6 F L 53 L 15 186/73 H 97 11/27/19 16:01 11/27/19 16:01 11/27/19 16:01 11/27/19 16:01 11/27/19 16:01 Oxygen Delivery Method Room Air Weight: 199 lb Body Mass Index (BMI) 36.3 General: Alert, Oriented x3, Cooperative HEENT: Atraumatic, PERRLA, EOMI, Normocephalic Neck: Supple, No JVD, Negative Carotid Bruits Lungs: Clear to auscultation, Normal air movement Cardiovascular: Regular rate, No murmurs Abdomen: Bowel Sounds Present, Soft, Non Tender, Non-Distended Extremities: No clubbing, No cyanosis, No edema, Capillary Refill Less than 3 Seconds Skin: No rashes, No breakdown Musculoskeletal: No Tenderness to Palpation of Joints or Extremities Neurological: Cranial nerves II-XII grossly intact, Neuro grossly intact Psych/Mental Status: Flat Affect Laboratory Results 11/27/19 12:15: WBC 7.0, RBC 4.59, Hgb 13.1, Hct 40.6, MCV 88.5, MCH 28.5, MCHC 32.3, RDW Std Deviation 44.9 H, RDW Coeff of [place] 13.9, Plt Count 159, MPV 13.0 H , Immature Gran % (Auto) 0.300, Neut % (Auto) 67.7, Lymph % (Auto) 20.4, [place] % (Auto) 8.0, Eos % (Auto) 3.3, Baso % (Auto) 0.3, Absolute Neuts (auto) 4.8, Absolute Lymphs (auto) 1.43, Nucleated RBC % 0 11/27/19 12:15: PT 14.3, INR 1.2, APTT 29.9 11/27/19 12:15: Sodium 141, Potassium 4.1, Chloride 107, Carbon Dioxide 29.0, Anion Gap 5, BUN 66 H, Creatinine 2.30 H, Estim Creat Clear Calc 22.37, Est GFR (MDRD) Af Amer 28 L, Est GFR (MDRD) Non-Af 24 L, BUN/Creatinine Ratio 28.7 H, Glucose 141 H, Calcium 8.1 L, Troponin I < 0.015 11/27/19 12:25: Urine Color Straw, Urine Clarity Clear, Urine pH 6.0, Ur Specific [place] 1.010, Urine Protein 100 H, Urine Glucose (UA) Normal, Urine Ketones Negative, Urine Occult Blood Negative, Urine Nitrite Negative, Urine Bilirubin Negative, Urine Urobilinogen Normal, Ur Leukocyte Esterase Negative, Urine RBC 0 SEEN, Urine WBC 0 SEEN, Ur Squamous Epith Cells 0-5 SEEN, Urine Bacteria 0 SEEN, Urine Mucus 0 SEEN Assessment/Plan All Active Problems (Last Reviewed 05/26/19 @ 09:29 by Arabella Painter) Acute renal injury due to circulatory failure (Resolved) History of cholelithiasis (Resolved) 1. Hypertensive urgency-improved following IV hydralazine in ER. Continue home amlodipine regimen. Increase carvedilol to 25 mg p.o. twice daily. Increase hydralazine to 50 mg p.o. twice daily. Continue home torsemide regimen. PRN hydralazine for systolic blood pressure greater than 160. 2. Intractable headache-brain CT negative for acute process. Suspect headache secondary to #1. Treatment per above as well as PRN Tylenol. 3. CAD with history of stent to LAD and circumflex in 2017-follows with Dr. Romano. Denies chest pain. Continue aspirin, statin, beta-antoni, Eliquis. 4. Hyperlipidemia-continue statin. 5. CVA-continue aspirin, Eliquis, statin. 6. Chronic diastolic CHF-echo April 2018 demonstrated an EF of 60%, RVSP estimated to be 43 mmHg, evidence of diastolic dysfunction. Continue torsemide. 7. History of DVT-on Eliquis. 8. Chronic kidney disease stage IV-at baseline, trend BMP. DVT prophylaxis-Eliquis This patient was seen by TERESA Elizondo under the supervision of Dr. Swan. <Rayna Swan - Last Filed: 11/27/19 17:57> History of Present Illness The patient is a 53 year old F [] Past Medical History Medical History: Medical History (Last Reviewed 05/26/19 @ 09:29 by Arabella Painter) Essential hypertension (Chronic) I10 Atherosclerosis of coronary artery of [place] heart without angina pectoris (Chronic) I25.10 Congestive heart failure (Chronic) I50.9 Depression F32.9 GERD (gastroesophageal reflux disease) K21.9 History of renal calculi Z87.442 Kidney disease N28.9 Morbid obesity E66.01 Type 2 diabetes mellitus without complication E11.9 Acute ischemic left MCA stroke I63.512 April 2018 Acute kidney injury N17.9 Acute renal injury due to circulatory failure (Resolved) N17.9, I99.8 History of CVA (cerebrovascular accident) Z86.73 History of cholelithiasis (Resolved) Z87.19 Asthma J45.909 Community acquired bacterial pneumonia J15.9 Allergies No Known Allergies Allergy (Verified 11/27/19 11:15) Surgical History: Surgical History (Last Reviewed 11/27/19 @ 16:55 by TERESA Elizondo) History of PTCA (Chronic) Z98.61 PTCA to left anterior descending artery and left obtuse marginal 1 artery with a KWAKU. A total of two KWAKU's to the proximal LAD and 1 to the obtuse marginal 1. History of left heart catheterization (Chronic) Z98.890 07/01/2016, [facility], operated by [facility] S/P appendectomy Z90.49 S/P section Z98.891 x 2 S/P laparoscopic cholecystectomy Z90.49 05/19 - *Family History Maternal Family History: Family History (Last Reviewed 11/27/19 @ 16:55 by TERESA Elizondo) Mother Diabetes Heart disease Hypertension Father Hypertension Heart disease Brother Heart disease Hypertension Sister Heart disease Diabetes Paternal Family History: Family History (Last Reviewed 11/27/19 @ 16:55 by TERESA Elizondo) Mother Diabetes Heart disease Hypertension Father Hypertension Heart disease Brother Heart disease Hypertension Sister Heart disease Diabetes - Physical Exam Vitals/I&O's: Vital Signs Temp Pulse Resp BP Pulse Ox 97.8 F 58 L 16 179/61 H 98 11/27/19 17:14 11/27/19 17:14 11/27/19 17:14 11/27/19 17:14 11/27/19 17:14 Oxygen Delivery Method Room Air Weight: 88.904 kg Body Mass Index (BMI) 35.8 Laboratory Results 11/27/19 12:15: WBC 7.0, RBC 4.59, Hgb 13.1, Hct 40.6, MCV 88.5, MCH 28.5, MCHC 32.3, RDW Std Deviation 44.9 H, RDW Coeff of [place] 13.9, Plt Count 159, MPV 13.0 H , Immature Gran % (Auto) 0.300, Neut % (Auto) 67.7, Lymph % (Auto) 20.4, [place] % (Auto) 8.0, Eos % (Auto) 3.3, Baso % (Auto) 0.3, Absolute Neuts (auto) 4.8, Absolute Lymphs (auto) 1.43, Nucleated RBC % 0 11/27/19 12:15: PT 14.3, INR 1.2, APTT 29.9 11/27/19 12:15: Sodium 141, Potassium 4.1, Chloride 107, Carbon Dioxide 29.0, Anion Gap 5, BUN 66 H, Creatinine 2.30 H, Estim Creat Clear Calc 22.37, Est GFR (MDRD) Af Amer 28 L, Est GFR (MDRD) Non-Af 24 L, BUN/Creatinine Ratio 28.7 H, Glucose 141 H, Calcium 8.1 L, Troponin I < 0.015 11/27/19 12:25: Urine Color Straw, Urine Clarity Clear, Urine pH 6.0, Ur Specific [place] 1.010, Urine Protein 100 H, Urine Glucose (UA) Normal, Urine Ketones Negative, Urine Occult Blood Negative, Urine Nitrite Negative, Urine Bilirubin Negative, Urine Urobilinogen Normal, Ur Leukocyte Esterase Negative, Urine RBC 0 SEEN, Urine WBC 0 SEEN, Ur Squamous Epith Cells 0-5 SEEN, Urine Bacteria 0 SEEN, Urine Mucus 0 SEEN Current Medications Acetaminophen (Tylenol) 650 mg PO Q6H PRN PRN PRN Reason: Pain Score 1-10/Temp > 100.7 F Amlodipine Besylate (Norvasc) 10 mg PO DAILY LIZZETH Apixaban (Eliquis) 5 mg PO BID LIZZETH Aspirin (Aspirin, Baby) 81 mg PO DAILY@0800 LIZZETH Atorvastatin Calcium (Lipitor) 80 mg PO QHS LIZZETH Carvedilol (Coreg) 25 mg PO BID LIZZETH Docusate Sodium (Colace) 100 mg PO BID PRN PRN Reason: Constipation Furosemide (Lasix) 80 mg PO DAILY LIZZETH Hydralazine HCl (Apresoline) 50 mg PO BID LIZZETH Hydralazine HCl (Apresoline Iv) 10 mg IV Q4H PRN PRN PRN Reason: BLOOD PRESSURE Sodium Chloride () 250 mls @ 15 mls/hr IV .[id number] PRN PRN Reason: Saline Flush Sodium Chloride () 250 mls @ 15 mls/hr IV .[id number] PRN PRN Reason: Additional IVPB Infusion Sodium Chloride () 10 - 40 ml IV UD PRN PRN Reason: SALINE FLUSH Assessment/Plan This patient was seen in conjunction with Gracie Guzmán NP. I have independently interviewed and examined the patient and reviewed pertinent historical, laboratory, and other data. Please refer to her note for patient's presentation, findings, and recommendations. 53-year-old female with past medical history of CAD status post stents, hypertension, type II DM who comes in with complaints of headache that got worse today. Patient is a poor historian. Patient stated that she has been taking her medications and has not missed any. Patient denies any chest pain or dizziness or palpitations. Discussed with sister, who is her caregiver, patient is disabled from her stroke in 2018. She lately has been depressed. She was started on Zoloft. Her blood pressures have been uncontrolled. Has been ranging from 180s systolic. Her primary care doctor make changes to her medications. She has taken all her medications this morning. Physical Exam: Gen: Looks in some discomfort, flat affect, not pale, not jaundiced, alert oriented x3 CVS:HS I +II, regular, 3/6 holosystolic murmur RESP: Clinically clear to auscultation GI: BS present and normal, nontender, no palpable organs EXT:No edema Labs reviewed: Creatinine is about her baseline EKG shows normal sinus rhythm, no acute ST-T changes. NE interval is 220, heart rate 52, QTc is 465 ASSESSMENT: 1. Hypertensive urgency 2. Intractable headache 3. CAD status post stents 4. History of CVA 5. Chronic diastolic CHF 6. History of DVT 7. CKD stage IV Meds reviewed Plan: Would admit to PCU, monitor on telemetry Continue on home medications Increase hydralazine to 50 mg twice daily Increase carvedilol to 25 twice daily Inpatient E&M: [id number] Init Hosp L3
[2019-11-27 23:36] LABS: Bedside Glucose 176 mg/dL (70-110)
[2019-11-27] MEDS: Insulin Lispro 100 UNIT/ML INSULN.PEN SC (23:37)
[2019-11-27] MEDS: hydrALAZINE 50 MG Tablet PO (23:38)
[2019-11-27] MEDS: Carvedilol 25 MG Tablet PO (23:39)
[2019-11-27] MEDS: MELATONIN 3 MG TABLET PO (23:40)
[2019-11-27] MEDS: APIXABAN 5 MG TABLET PO (23:40)
[2019-11-27] MEDS: Atorvastatin Calcium 80 MG Tablet PO (23:40)
[2019-11-28] VITALS (7 sets, daily range): BP systolic 146–176; BP diastolic 68–70; PULSE 61–68; RESP 16–18; TEMP 36.7–36.9; O2SAT 97–98
[2019-11-28 06:11] LABS: Absolute Lymphocyte Count 1.15 X10^3/uL (0.83-4.51); Absolute Neutrophil Count 5.9 X10^3/uL (2.0-7.7); Basophil# 0.03 X10^3/uL; Basophil% 0.4 % (0-1); Eosinophil# 0.15 X10^3/uL; Eosinophils% 1.9 % (0-5); Hematocrit 39.6 % (37-47); Lymphocyte # 1.15 X10^3/ul (4.0); Lymphocyte % 14.8 % (19-41); Mean Corp Hgb Conc 32.8 g/dL (32-36); Mean Corpuscular Hgb 29.4 pg (27.0-32.0); Mean Corpuscular Volume 89.6 fL (81-99); Mean Platelet Vol. 12.8 fl (6.2-12.0); Monocyte# 0.55 X10^3/uL; Monocyte% 7.1 % (0-10); NRBC Flagged by Analyzer 0 % (0-5); Neutrophil # 5.85 X10^3/uL (2.7-7.7); Neutrophil % 75.4 % (47-70); Platelet Count 154 K/mm3 (150-450); RBC Distribution Width CV 14.1 % (11.6-14.6); RBC Distribution Width SD 45.3 fl (35.1-43.9); Red Blood Count 4.42 M/mm3 (4.2-5.4); White Blood Count 7.8 K/mm3 (4.4-11.0)
[2019-11-28 06:44] LABS: ALB/GLOB Ratio 0.8 RATIO (0.9-2.4); AST(SGOT) 29 U/L (15-37); Alanine Aminotransfer ALT/SGPT 42 U/L (13-56); Albumin, Serum 2.6 g/dL (3.2-5.0); Alkaline Phosphatase 85 U/L (45-117); Anion Gap 4 (5-15); BUN 64 mg/dL (7-18); BUN/Creat Ratio 27.4 RATIO (10-20); Chloride 109 mmol/L (98-107); Creatinine, Serum 2.34 mg/dL (0.55-1.02); EST Glomerular Filtration Rate 23 mL/min (>60); Est Glom Filt Rate - Afr Amer 28 mL/min (>60); Estimated Creatinine Clearance 21.99 ml/min; Globulin 3.3 g/dL (2.2-4.2); Glucose 133 mg/dL (74-106); Potassium 3.7 mmol/L (3.5-5.1); Protein, Total 5.9 g/dL (6.4-8.2); Sodium Level 141 mmol/L (136-145)
[2019-11-28 07:11] LABS: Bedside Glucose 138 mg/dL (70-110)
[2019-11-28] MEDS: Aspirin 81 MG TAB.CHEW PO (08:05)
[2019-11-28] MEDS: Ferrous Sulfate 325 MG Tablet PO (08:05)
[2019-11-28] MEDS: hydrALAZINE 50 MG Tablet PO (09:31)
[2019-11-28] MEDS: Sertraline 50 MG Tablet PO (09:31)
[2019-11-28] MEDS: APIXABAN 5 MG TABLET PO (09:31)
[2019-11-28] MEDS: amLODIPine 10 MG Tablet PO (09:31)
[2019-11-28] MEDS: Carvedilol 25 MG Tablet PO (09:31)
[2019-11-28] MEDS: Allopurinol 100 MG Tablet PO (09:32)
--- NOTE | 2019-11-28 10:49 | CASEMGMT ---
SAPNA WINN assessment: Face to Face with patient for initial transition planning/care coordination assessment. SAPNA WINN introduced self and role at [facility], pt voices understanding and consents to assessment at this time. Pt is sitting up in chair in no distress at this time. Pt is A/Ox4 at this time and answers most questions appropriately at this time. Occasionally pt states, I don't know, but my sister does.' Pt lives with her sister, Stephy Roberts, and her sister helps care for pt at home Care providers, pharmacy, and demographics verified at this time. Presentation: BRANTLEY since thursday, hx CVA Admitting dx: Intractable BRANTLEY, uncontrolled HTN PCP: [facility] Specialists: Pt is unsure of specialists at this time and sister is not at bedside. Preferred Pharmacy: [facility] Insurance: [employer], [employer] Prescription Benefit: Yes Living Will/HPOA: Pt states does not have LW/HPOA and declines AD info at this time. LNOK: Stephy Roberts, sister Living Arrangements: Pt states lives with sister in a mobile home and states no concerns at home at this time. Pt states is mostly independent with ADL's but her sister helps her with meals and driving. Transportation: Pt states sister drives and states no transportation concerns at this time. DME/HHC: Pt states has the following DME: rollator. Pt states no need for any further DME at this time. Pt declines need for further therapy at this time. Pt states no hx of HHC or SNF in the past. Pt states no concerns with going home at time of discharge and is anxious to leave at this time. Pt states is on disability. Pt states does not smoke cigarettes or drink ETOH. Pt states no further concerns/needs at this time. CM to follow for any further discharge planning/needs. Advised pt to ask for CM if any further questions/concerns/needs arise, voices understanding. Pt Goal: Home Plan: [place] SAPNA WINN
--- NOTE | 2019-11-28 10:53 | DCINST_ITS ---
- Discharge Diagnoses Current Active Problems: Current Active and Chronic Problems (Last Reviewed 05/26/19 @ 09:29 by Arabella Painter) Headache (Acute) Hypertensive urgency (Acute) Chronic kidney disease (Chronic) You will use the following diet at home:: Cardiac Discharge Activity: Return to Normal Activity Call your doctor if you observe: Shortness of breath, Dizziness, Fainting spells, Chest pain Allergies/Adverse Reactions: Allergies No Known Allergies Allergy (Verified 11/27/19 11:15) Medications to take at Discharge Aspirin [Aspirin, Baby] 81 mg PO DAILY@0800 07/15/18 Apixaban [Eliquis] 5 mg PO BID 08/04/18 Atorvastatin Calcium [Lipitor] 80 mg PO QHS 08/04/18 Insulin Aspart [Novolog Flexpen] See Protocol SQ 4X/DAY 08/04/18 torsemide 100 mg tablet 50 mg PO BID tab 04/14/19 hydrALAZINE [Apresoline] 100 mg PO BID 05/04/19 insulin glargine U-300 conc 300 unit/mL (1.5 mL) subcutaneous pen See Rx Instructions SC QHS 05/26/19 Allopurinol 100 mg PO DAILY 11/27/19 Ferrous Sulfate [Iron] 325 mg PO DAILY 11/27/19 Hydrocodone/Acetaminophen [Vicodin 5-300 mg Tablet] 1 tab PO Q8H PRN 11/27/19 Sertraline HCl [Zoloft] 1 tab PO DAILY 11/27/19 Amlodipine [Norvasc] 10 mg PO DAILY #30 tab 11/28/19 Carvedilol [Coreg (Beta Ángela)] 25 mg PO BID #60 tab 11/28/19 The following prescriptions were given: Carvedilol [Coreg (Beta Ángela)] 25 mg PO BID #60 tab Transmission Status: Pending to [facility] Amlodipine [Norvasc] 10 mg PO DAILY #30 tab Transmission Status: Pending to [facility] Primary Care Physician: Page uStton NP-C [Primary Care Provider] - Please follow up with your Primary Care Physician in: 1 Week Test Results: Test results from this visit will be discussed in further detail at your follow- up appointment, if applicable. Please Follow Up With: Demetria Byrd PA When: 2 weeks for blood pressure follow up Proposed Discharge Date: 11/28/19
--- NOTE | 2019-11-28 11:00 | DS.PCM_ITS ---
<Gracie Guzmán - Last Filed: 11/28/19 11:19> Discharge Date and Diagnosis Date of Admission: 11/27/19 Date of Discharge: 11/28/19 - Primary Discharge Diagnosis Acute Problems: Active Problems (Last Reviewed 05/26/19 @ 09:29 by Arabella Painter) 1. Hypertensive urgency 2. Intractable headache 3. CAD with history of stent to LAD and circumflex in 2017 4. Hyperlipidemia 5. CVA 6. Chronic diastolic CHF 7. History of DVT 8. Chronic kidney disease stage IV - Secondary Discharge Diagnosis Chronic Problems: Chronic Problems (Last Reviewed 05/26/19 @ 09:29 by Arabella Painter) Chronic kidney disease (Chronic) Essential hypertension (Chronic) Atherosclerosis of coronary artery of [place] heart without angina pectoris (Chronic) History of PTCA (Chronic) PTCA to left anterior descending artery and left obtuse marginal 1 artery with a KWAKU. A total of two KWAKU's to the proximal LAD and 1 to the obtuse marginal 1. History of left heart catheterization (Chronic) 07/01/2016, [facility] Congestive heart failure (Chronic) Hospital Course and Treatment Imaging Results: Diagnostic Data Brain CT 11/27/19 11:47 IMPRESSION: Stable chronic changes of the brain. Electronically Signed: Rubens Nielsen DO at 14:17 EDT Tel [phone], Service support , Chest X-Ray 11/27/19 12:05 IMPRESSION: Normal x-ray examination of the chest. Electronically Signed: Hermes Mao MD at 12:56 EDT Tel , Service support , Operations: None Procedures: None Summary of Care Provided: The patient is a 53 year old F admitted 11/27/2019 due to headache and elevated blood pressure. 1. Hypertensive urgency-blood pressure significantly improved. Continue amlodipine 10 mg daily. Carvedilol increased to 25 mg twice daily. Hydralazine 100 mg twice daily. Continue torsemide regimen. Recommend continued blood pressure checks twice daily at home with further follow-up with cardiology and PCP in 1 to 2 weeks. 2. Intractable headache-brain CT negative for acute process. Suspect headache secondary to #1. Headache resolved following treatment of #1. 3. CAD with history of stent to LAD and circumflex in 2017-follows with Dr. Romano. Denies chest pain. Continue aspirin, statin, beta-ángela, Eliquis. 4. Hyperlipidemia-continue statin. 5. CVA-continue aspirin, Eliquis, statin. 6. Chronic diastolic CHF-echo April 2018 demonstrated an EF of 60%, RVSP estimated to be 43 mmHg, evidence of diastolic dysfunction. Continue torsemide. 7. History of DVT-on Eliquis. 8. Chronic kidney disease stage IV-at baseline. Patient unable to tell this provider if she has followed with nephrology in the past. If she does not currently follow with nephrology, recommend referral by PCP. General: Alert, Oriented x3, Cooperative HEENT: Atraumatic, PERRLA, EOMI, Normocephalic Neck: Supple, No JVD, Negative Carotid Bruits Lungs: Clear to auscultation, Normal air movement Cardiovascular: Regular rate, No murmurs Abdomen: Bowel Sounds Present, Soft, Non Tender, Non-Distended Extremities: No clubbing, No cyanosis, No edema, Capillary Refill Less than 3 Seconds Skin: No rashes, No breakdown Musculoskeletal: No Tenderness to Palpation of Joints or Extremities Neurological: Cranial nerves II-XII grossly intact, Neuro grossly intact Psych/Mental Status: Flat Affect Patient seen and examined prior to discharge. Physical assessment as noted above. Patient is stable for discharge with follow up recommendations as noted above. This patient was seen by TERESA Elizondo under the supervision of Dr. Swan. - Physical Exam Vitals/I&O's: Vital Signs Temp Pulse Resp BP Pulse Ox 98.4 F 63 18 176/68 H 97 11/28/19 05:31 11/28/19 09:31 11/28/19 05:31 11/28/19 09:31 11/28/19 05:31 Oxygen Delivery Method Room Air Weight: 196 lb 0.004 oz Body Mass Index (BMI) 35.8 Intake and Output for Last 24 Hours 11/26/19 11/27/19 11/28/19 23:59 23:59 23:59 Intake Total 100 / 100 Balance 100 / 100 Laboratory Results 11/27/19 12:15: WBC 7.0, RBC 4.59, Hgb 13.1, Hct 40.6, MCV 88.5, MCH 28.5, MCHC 32.3, RDW Std Deviation 44.9 H, RDW Coeff of [place] 13.9, Plt Count 159, MPV 13.0 H , Immature Gran % (Auto) 0.300, Neut % (Auto) 67.7, Lymph % (Auto) 20.4, [place] % (Auto) 8.0, Eos % (Auto) 3.3, Baso % (Auto) 0.3, Absolute Neuts (auto) 4.8, Absolute Lymphs (auto) 1.43, Nucleated RBC % 0 11/27/19 12:15: PT 14.3, INR 1.2, APTT 29.9 11/27/19 12:15: Sodium 141, Potassium 4.1, Chloride 107, Carbon Dioxide 29.0, Anion Gap 5, BUN 66 H, Creatinine 2.30 H, Estim Creat Clear Calc 22.37, Est GFR (MDRD) Af Amer 28 L, Est GFR (MDRD) Non-Af 24 L, BUN/Creatinine Ratio 28.7 H, Glucose 141 H, Calcium 8.1 L, Troponin I < 0.015 11/27/19 12:25: Urine Color Straw, Urine Clarity Clear, Urine pH 6.0, Ur Specific Elizabeth 1.010, Urine Protein 100 H, Urine Glucose (UA) Normal, Urine Ketones Negative, Urine Occult Blood Negative, Urine Nitrite Negative, Urine Bilirubin Negative, Urine Urobilinogen Normal, Ur Leukocyte Esterase Negative, Urine RBC 0 SEEN, Urine WBC 0 SEEN, Ur Squamous Epith Cells 0-5 SEEN, Urine Bacteria 0 SEEN, Urine Mucus 0 SEEN 11/27/19 23:33: POC Glucose 176 H 11/28/19 06:04: WBC 7.8, RBC 4.42, Hgb 13.0, Hct 39.6, MCV 89.6, MCH 29.4, MCHC 32.8, RDW Std Deviation 45.3 H, RDW Coeff of [place] 14.1, Plt Count 154, MPV 12.8 H , Immature Gran % (Auto) 0.400, Neut % (Auto) 75.4 H, Lymph % (Auto) 14.8 L, [place] % (Auto) 7.1, Eos % (Auto) 1.9, Baso % (Auto) 0.4, Absolute Neuts (auto) 5.9, Absolute Lymphs (auto) 1.15, Nucleated RBC % 0 11/28/19 06:04: Sodium 141, Potassium 3.7, Chloride 109 H, Carbon Dioxide 28.0, Anion Gap 4 L, BUN 64 H, Creatinine 2.34 H, Estim Creat Clear Calc 21.99, Est GFR (MDRD) Af Amer 28 L, Est GFR (MDRD) Non-Af 23 L, BUN/Creatinine Ratio 27.4 H , Glucose 133 H, Calcium 8.0 L, Total Bilirubin 0.60, AST 29, ALT 42, Alkaline Phosphatase 85, Total Protein 5.9 L, Albumin 2.6 L, Globulin 3.3, Albumin/Globulin Ratio 0.8 L 11/28/19 07:04: POC Glucose 138 H Current Medications Acetaminophen (Tylenol) 650 mg PO Q6H PRN PRN PRN Reason: Pain Score 1-10/Temp > 100.7 F Allopurinol (Zyloprim) 100 mg PO DAILY [facility] Last Admin: 11/28/19 09:32 Dose: 100 mg Documented by: Amlodipine Besylate (Norvasc) 10 mg PO DAILY [facility] Last Admin: 11/28/19 09:31 Dose: 10 mg Documented by: Apixaban (Eliquis) 5 mg PO BID [facility] Last Admin: 11/28/19 09:31 Dose: 5 mg Documented by: Aspirin (Aspirin, Baby) 81 mg PO DAILY@0800 [facility] Last Admin: 11/28/19 08:05 Dose: 81 mg Documented by: Atorvastatin Calcium (Lipitor) 80 mg PO QHS [facility] Last Admin: 11/27/19 23:40 Dose: 80 mg Documented by: Carvedilol (Coreg) 25 mg PO BID [facility] Last Admin: 11/28/19 09:31 Dose: 25 mg Documented by: Dextrose (D50w Syringe) 0 gm IV X1 PRN; Protocol PRN Reason: Hypoglycemia Docusate Sodium (Colace) 100 mg PO BID PRN PRN Reason: Constipation [facility] Admin: 11/28/19 08:05 Dose: 325 mg Documented by: Furosemide (Lasix) 80 mg PO DAILY [facility] Glucagon () 1 mg IM .X1 PRN PRN Reason: Hypoglycemia Hydralazine HCl (Apresoline) 50 mg PO BID [facility] Last Admin: 11/28/19 09:31 Dose: 50 mg Documented by: Hydralazine HCl (Apresoline Iv) 10 mg IV Q4H PRN PRN PRN Reason: BLOOD PRESSURE Sodium Chloride () 250 mls @ 15 mls/hr IV .[id number] PRN PRN Reason: Saline Flush Sodium Chloride () 250 mls @ 15 mls/hr IV .[id number] PRN PRN Reason: Additional IVPB Infusion Insulin Human Lispro (Humalog Kwikpen (Bkc)) 0 unit SC ACHS [facility]; Protocol Last Admin: 11/28/19 07:05 Dose: Not Given Documented by: Melatonin (Melatonin) 3 mg PO QHS [facility] Last Admin: 11/27/19 23:40 Dose: 3 mg Documented by: Sertraline HCl (Zoloft) 50 mg PO DAILY [facility] Last Admin: 11/28/19 09:31 Dose: 50 mg Documented by: Sodium Chloride () 10 - 40 ml IV UD PRN PRN Reason: SALINE FLUSH Discharge Diet: Low fat/ Low Cholesterol, 2000 mg Sodium Diet Discharge Activity: Return to Normal Activity Call your doctor if you observe: Shortness of breath, Dizziness, Fainting spells, Chest pain Home Medications: Medications to take at Discharge Aspirin [Aspirin, Baby] 81 mg PO DAILY@0800 07/15/18 Apixaban [Eliquis] 5 mg PO BID 08/04/18 Atorvastatin Calcium [Lipitor] 80 mg PO QHS 08/04/18 Insulin Aspart [Novolog Flexpen] See Protocol SQ 4X/DAY 08/04/18 torsemide 100 mg tablet 50 mg PO BID tab 04/14/19 hydrALAZINE [Apresoline] 100 mg PO BID 05/04/19 insulin glargine U-300 conc 300 unit/mL (1.5 mL) subcutaneous pen See Rx Instructions [place] QHS 05/26/19 Allopurinol 100 mg PO DAILY 11/27/19 Ferrous Sulfate [Iron] 325 mg PO DAILY 11/27/19 Hydrocodone/Acetaminophen [Vicodin 5-300 mg Tablet] 1 tab PO Q8H PRN 11/27/19 Sertraline HCl [Zoloft] 1 tab PO DAILY 11/27/19 Amlodipine [Norvasc] 10 mg PO DAILY #30 tab 11/28/19 Carvedilol [Coreg (Beta Ángela)] 25 mg PO BID #60 tab 11/28/19 Following Prescriptions Were Given to Patient: Carvedilol [Coreg (Beta Ángela)] 25 mg PO BID #60 tab Transmission Status: Received by [facility] Amlodipine [Norvasc] 10 mg PO DAILY #30 tab Transmission Status: [facility] by [facility] Primary Care Physician: Page Sutton NP-C [Primary Care Provider] - Please follow up with your Primary Care Physician in: 1 Week Please Follow Up With: Demetria Byrd PA When: 2 weeks for blood pressure follow up Disposition: Home Minutes spent on discharge:: 35 Patient Condition:: Stable Medical Necessity - Tobacco Use Smoking Status: Former smoker Meaningful Use Info Meaningful Use Diagnoses (Choose all that apply): None applicable <Paintsil,Charlotte - Last Filed: 11/28/19 13:41> Discharge Date and Diagnosis - Secondary Discharge Diagnosis Chronic Problems: Chronic Problems (Last Reviewed 05/26/19 @ 09:29 by Arabella Painter) Chronic kidney disease (Chronic) Essential hypertension (Chronic) Atherosclerosis of coronary artery of [place] heart without angina pectoris (Chronic) History of PTCA (Chronic) PTCA to left anterior descending artery and left obtuse marginal 1 artery with a KWAKU. A total of two KWAKU's to the proximal LAD and 1 to the obtuse marginal 1. History of left heart catheterization (Chronic) 07/01/2016, [facility] Congestive heart failure (Chronic) Hospital Course and Treatment Summary of Care Provided: This patient was seen in conjunction with Gracie Guzmán NP. I have independently interviewed and examined the patient and reviewed pertinent historical, laboratory, and other data. Please refer to her note for patient's presentation, findings, and recommendations. 53-year-old female with past medical history of CAD status post stents, hypertension, type II DM who comes in with complaints of headache that got worse today. Patient was a poor historian. Patient stated that she has been taking her medications and has not missed any. Patient denies any chest pain or dizziness or palpitations on admission. Discussed with sister, who is her caregiver, patient is disabled from her stroke in 2018. She lately had been depressed. She was started on Zoloft. Her blood pressures have been uncontrolled. Has been ranging from 180s systolic. Her primary care doctor make changes to her medications. She was managed on a telemetry floor. She was resumed on her home medication with an increase in dose of her carvedilol to 25 mg twice daily and added hydralazine to 50 mg twice daily. Patient's blood pressures were controlled overnight. On the day of discharge, patient was seen and examined. She is awake and alert. She is more talkative. She is very tearful. Wants to be discharged. Labs reviewed, CKD stage IV is unchanged. Physical Exam: Gen: Emotionally labile, not pale, not jaundiced, alert oriented x3 CVS:HS I +II, regular, 3/6 holosystolic murmur RESP: Clinically clear to auscultation GI: BS present and normal, nontender, no palpable organs EXT:No edema - Physical Exam Vitals/I&O's: Vital Signs Temp Pulse Resp BP Pulse Ox 98.1 F 63 16 176/68 H 98 11/28/19 11:47 11/28/19 11:47 11/28/19 11:47 11/28/19 11:47 11/28/19 11:47 Oxygen Delivery Method Room Air Weight: 88.904 kg Body Mass Index (BMI) 35.8 Intake and Output for Last 24 Hours 11/26/19 11/27/19 11/28/19 23:59 23:59 23:59 Intake Total 100 / 100 Balance 100 / 100 Laboratory Results 11/27/19 23:33: POC Glucose 176 H 11/28/19 06:04: WBC 7.8, RBC 4.42, Hgb 13.0, Hct 39.6, MCV 89.6, MCH 29.4, MCHC 32.8, RDW Std Deviation 45.3 H, RDW Coeff of [place] 14.1, Plt Count 154, MPV 12.8 H , Immature Gran % (Auto) 0.400, Neut % (Auto) 75.4 H, Lymph % (Auto) 14.8 L, [place] % (Auto) 7.1, Eos % (Auto) 1.9, Baso % (Auto) 0.4, Absolute Neuts (auto) 5.9, Absolute Lymphs (auto) 1.15, Nucleated RBC % 0 11/28/19 06:04: Sodium 141, Potassium 3.7, Chloride 109 H, Carbon Dioxide 28.0, Anion Gap 4 L, BUN 64 H, Creatinine 2.34 H, Estim Creat Clear Calc 21.99, Est GFR (MDRD) Af Amer 28 L, Est GFR (MDRD) Non-Af 23 L, BUN/Creatinine Ratio 27.4 H , Glucose 133 H, Calcium 8.0 L, Total Bilirubin 0.60, AST 29, ALT 42, Alkaline Phosphatase 85, Total Protein 5.9 L, Albumin 2.6 L, Globulin 3.3, Albumin/Globulin Ratio 0.8 L 11/28/19 07:04: POC Glucose 138 H Inpatient E&M: [id number] Disch Hosp
--- NOTE | 2019-11-29 14:34 | CASEMGMT ---
Addendum entered by Jakub Vaughn 11/29/19 14:53: Patient's sister returned call to mental health case manager. States patient is living with her, is doing well and no questions or concerns regarding instructions, medications or follow up. sister is assisting patient with any needs. No care improvement suggestions given. Lizette ABBOTT Original Note: SAPNA WINN DC PHONE CALL DC DATE: 11/29/2019 DC DISPOSITION: Home DC DIAGNOSIS: HTN Urgency, Intractable headache LACE/STRATA: 12/30 F/U APPTS MADE PRIOR TO DC: yes Attempted call to patient's phone. No answer, and messaging did not have name identifier. Lizette NICOLE RN ACM
== END 2019-11-28 11:50 | disposition home or self-care (01) | DRG 305 ==
LOC: ED 12:54 → PCU 16:08
PROVIDERS: Admitting Provider Internal Medicine; Emergency Provider Emergency Medicine; PCP Nurse Practitioner Family; Visit Provider Internal Medicine
DX: I16.0 Hypertensive urgency (principal); I50.32 Chronic diastolic (congestive) heart failure; N18.4 Chronic kidney disease, stage 4 (severe); Z95.5 Presence of coronary angioplasty implant and graft; I25.10 Atherosclerotic heart disease of native coronary artery without angina pectoris; E78.5 Hyperlipidemia, unspecified; I13.0 Hypertensive heart and chronic kidney disease with heart failure and stage 1 through stage 4 chronic kidney disease, or unspecified chronic kidney disease; Z86.718 Personal history of other venous thrombosis and embolism; Z86.73 Personal history of transient ischemic attack (TIA), and cerebral infarction without residual deficits; Z79.02 Long term (current) use of antithrombotics/antiplatelets; E11.22 Type 2 diabetes mellitus with diabetic chronic kidney disease; K21.9 Gastro-esophageal reflux disease without esophagitis; Z79.4 Long term (current) use of insulin; Z79.899 Other long term (current) drug therapy
CPT/HCPCS: 36415; 70450; 71045; 80048; 80053; 81001; 82962; 84484; 85025; 85610; 85730; 93005; 99284; A4216

== ENCOUNTER → 2019-12-30 | Outpatient (CLI) | payer MEDICARE, MEDICAID, SELFPAY ==
[2019-12-08 14:25] VITALS: BMI 36.6
--- NOTE | 2019-12-30 08:06 | ECHOD_ITS ---
Reason For Study: HTN Procedure This was a 2D Doppler, Color Flow transthoracic echocardiogram. Exam performed in department. Left Ventricle Normal LV size. Mild concentric left ventricular hypertrophy. Left ventricular systolic function is normal. The estimated ejection fraction is 60 %. Stage 2 diastolic dysfunction. No regional wall motion abnormalities noted. Right Ventricle Normal RV size. Normal systolic function. Atria Normal left atrium. Normal right atrium. Mitral Valve Normal mitral valve. Tricuspid Valve Normal tricuspid valve. Aortic Valve Normal aortic valve. Pulmonic Valve Normal pulmonic valve. Great Vessels Normal aortic root. Pericardium/Pleural No pericardial effusion. MMode/2D Measurements & Calculations LVIDd: 4.3 cm IVSd: 1.3 cm Ao root diam: 3.1 cm LVIDs: 2.5 cm LVPWd: 1.4 cm LA dimension: 3.8 cm FS: 42.3 % LAV(MOD-bp): 48.5 ml LVAd ap4: 30.2 cm2 SV(MOD-sp4): 67.1 ml LAV(MOD-bp) Indexed: 26.0 ml/m2 EDV(MOD-sp4): 97.9 ml LAV(MOD-sp2): 40.0 ml EDV(sp4-el): 100.1 ml LAV(MOD-sp4): 53.8 ml LVAs ap4: 14.3 cm2 ESV(MOD-sp4): 30.8 ml ESV(sp4-el): 30.6 ml EF(MOD-sp4): 68.5 % EF(sp4-el): 69.4 % SV(sp4-el): 69.5 ml LA A4 area: 18.1 cm2 RA A4 area: 16.1 cm2 Time Measurements MV dec time: 0.19 sec Doppler Measurements & Calculations MV E max redd: 124.2 cm/sec Lat Peak E' Redd: 6.1 cm/sec Med Peak E' Redd: 6.6 cm/sec MV A max redd: 99.2 cm/sec E/E' lat: 20.5 E/E' med: 18.9 MV E/A: 1.3 MV V2 max: 148.3 cm/sec MV P1/2t max redd: 149.3 cm/sec Ao V2 max: 171.4 cm/sec MV max P.8 mmHg MV P1/2t: 73.6 msec Ao max P.8 mmHg MV V2 mean: 81.7 cm/sec MV mean P.2 mmHg MV dec slope: 593.8 cm/sec2 MV V2 VTI: 42.9 cm MVA(P1/2t): 3.0 cm2 LV V1 max: 122.5 cm/sec PA V2 max: 117.5 cm/sec LV V1 max P.0 mmHg Interpretation Summary Normal LV size. Left ventricular systolic function is normal. Mild concentric left ventricular hypertrophy. The estimated ejection fraction is 60 %. Stage 2 diastolic dysfunction. Ordering Physician: Pedro Luis Srivastava Referring Physician: Pedro Luis Srivastava Performed By: Alok Sewell RCS
== END | disposition home or self-care (01) ==
LOC: CVS 08:06
PROVIDERS: PCP Nurse Practitioner Family; Referring Provider Nurse Practitioner Family; Visit Provider Nurse Practitioner Family
DX: I25.10 Atherosclerotic heart disease of native coronary artery without angina pectoris (principal); I35.9 Nonrheumatic aortic valve disorder, unspecified; I10 Essential (primary) hypertension
CPT/HCPCS: 93306

== ENCOUNTER → 2020-02-29 06:13 | Outpatient (CLI) | payer MEDICARE, MEDICAID, SELFPAY ==
[2020-02-15 08:33] VITALS: BMI 38.0
--- NOTE | 2020-02-29 18:24 | STRESSREP ---
Stress Test Report Pharmacologic myocardial perfusion stress test. 54-year-old lady with a history of previous coronary artery disease and stenting. Stress protocol: Resting EKG demonstrates normal sinus rhythm with a rate of 60 bpm T wave inversions are noted in lead III. Resting blood pressure is 140/90 mmHg. 0.4 mg of regadenoson was infused per usual protocol followed by rapid intravenous saline flush injection continuous EKG monitoring was performed. The maximum heart rate attained was noted to be 74 bpm. The maximum workload was 1 metabolic equivalent. At rest nonspecific ST-T wave changes were noted with no meet the criteria for ischemia at peak infusion nonspecific ST changes were noted. The resting blood pressure is 140/90 final blood pressure was 130/72 mmHg. Myocardial perfusion protocol. 14.3 mCi of technetium 99m sestamibi was injected at rest. 0.4 mg of regadenoson was infused per usual protocol. At peak infusion 44.3 mCi of technetium 99m sestamibi was injected at rest. Stress and rest images were reconstructed and compared in the short axis vertical long horizontal long axis. Gated images were also obtained Perfusion SPECT analysis: Review of the stress images demonstrate significant GI uptake noted. There is a defect in the mid anterior wall which appears to be present on the stress and resting images suggestive of a possible previous infarct. There is significant GI uptake noted thereby obscuring the inferior wall. No obvious reversibility is noted though ischemia cannot be completely excluded on this study. Gated SPECT analysis: The gated ejection fraction is 66%. Conclusion: Pharmacologic myocardial perfusion stress test with no obvious ischemia noted. Previous anterior infarct is suggested. Preserved ejection fraction. Significant GI uptake is noted obscuring the inferior wall.
== END ==
PROVIDERS: PCP Nurse Practitioner Family; Referring Provider Nurse Practitioner Family; Visit Provider Nurse Practitioner Family
DX: R07.9 Chest pain, unspecified (principal); I25.10 Atherosclerotic heart disease of native coronary artery without angina pectoris; I12.9 Hypertensive chronic kidney disease with stage 1 through stage 4 chronic kidney disease, or unspecified chronic kidney disease; N18.9 Chronic kidney disease, unspecified; Z98.61 Coronary angioplasty status
CPT/HCPCS: 78452; 93017; A9500; A4216; J2785

== ENCOUNTER → 2020-08-21 09:42 | Outpatient (CLI) | payer MEDICARE, MEDICAID, SELFPAY ==
[2020-08-03 13:07] VITALS: BMI 40.4
--- NOTE | 2020-08-21 09:43 | CDU_ITS ---
Reason For Study: Carotid bruits Rt. Velocities/BP Lt. Velocities/BP Prox CCA 72.1/13.4 cm/sec. Prox CCA 86/19 cm/sec. Mid CCA 60.4/10.8 cm/sec. Mid CCA 71.7/14.6 cm/sec. Dist CCA 69.5/13.4 cm/sec. Dist CCA 53.1/12.4 cm/sec. Prox ICA 50.9/12.4 cm/sec. Prox ICA 67.4/22.3 cm/sec. Mid ICA 43.2/12.4 cm/sec. Mid ICA 106.9/41 cm/sec. Dist ICA 56.4/17.9 cm/sec. Dist ICA 137.5/38.9 cm/sec. Rt. ICA/CCA = 0.8. Lt. ICA/CCA = 1.9. Prox ECA 100.8/9.5 cm/sec. Prox ECA 99.2/8 cm/sec. Rt. Vert. 27.3/7.3 cm/sec. Lt. Vert. 45.6/16 cm/sec. Right Extracranial There is intimal thickening but no significant atherosclerotic plaque noted in the right common carotid artery. There is heterogeneous, irregular atherosclerotic plaque noted in the right internal carotid artery. There is intimal thickening but no significant atherosclerotic plaque noted in the right external carotid artery. Antegrade flow is noted in the right vertebral artery. Left Extracranial There is intimal thickening but no significant atherosclerotic plaque noted in the left common carotid artery. There is intimal thickening but no significant atherosclerotic plaque noted in the left internal carotid artery. The left internal carotid artery is very tortuous. There is intimal thickening but no significant atherosclerotic plaque noted in the left external carotid artery. Antegrade flow is noted in the left vertebral artery. Procedure Carotid Duplex 22801. This is a Carotid Duplex examination using B-mode, color flow and specral Doppler. Exam performed in department. VL/Carotid Duplex Ultrasound Interpretation Summary Mild (<50%) stenosis right extracranial internal carotid. Mild (<50%) stenosis left extracranial internal carotid. Flow within the vertebral arteries is antegrade bilaterally. Ordering Physician: Demetria Byrd Referring Physician: Page Sutton Performed By: Akiko Deleon RVT
== END ==
PROVIDERS: PCP Nurse Practitioner Family; Referring Provider Physician Assistant Medical; Visit Provider Physician Assistant Medical
DX: R09.89 Other specified symptoms and signs involving the circulatory and respiratory systems (principal)
CPT/HCPCS: 93880

== ENCOUNTER 2020-09-20 08:38 | Emergency (ER) | payer MEDICARE, MEDICAID, SELFPAY ==
[2020-08-03 13:07] VITALS: BMI 40.4
[2020-09-20 08:39] VITALS: BP 200/101; PULSE 79; RESP 19; TEMP 36.3; O2SAT 92; BMI 39.4
--- NOTE | 2020-09-20 08:47 | EKG12_ITS ---
Test Reason : CP Blood Pressure : / mmHG Vent. Rate : 066 BPM Atrial Rate : 066 BPM P-R Int : 250 ms QRS Dur : 090 ms QT Int : 456 ms P-R-T Axes : 058 000 018 degrees QTc Int : 478 ms Sinus rhythm with 1st degree A-V block Poor R wave progression Confirmed by KRISTINA REYES, CORINE ([id number]), school photograph editor CAROLYN GROSS ([id number]) on 09/24/2020 10:52:10 AM Referred By: RANDAL Confirmed By:CORINE ACEVEDO MD
--- NOTE | 2020-09-20 08:47 | RAD_ITS ---
STUDY: X-RAY CHEST REASON FOR EXAM: Female, 54 years old. sob TECHNIQUE: 1 view COMPARISON: 11/27/2019 FINDINGS: The cardiac silhouette is slightly enlarged. There is Limited pneumonia involving the right middle lobe a new finding since the previous examination the rest of the lung [place] are clear. No pleural effusion or pneumothorax RAD/Chest 1 View (Portable) IMPRESSION: Limited pneumonia right middle. Electronically Signed: Pillo Hernandez, at 10:11 EDT Tel , Service support ,
--- NOTE | 2020-09-20 08:49 | EDS_ITS ---
HPI History of Present Illness Chief Complaint: Shortness of Breath Informant: patient Onset/Context/Timing Onset: Today Context: gradual Timing: Intermittent Quality: Positive for Dyspnea on exertion and Orthopnea Current Severity: Moderate Maximum Severity: Moderate Worsened by: Coughing Relieved by: Nothing Associated Symptoms Chest Pain: Positive for None Narrative Narrative: The patient is a 54-year-old female medical history significant for hypertension, chronic kidney disease, prior DVT, CHF, and coronary vascular disease who presents to the emergency department shortness of breath, nausea, and vomiting. Patient states that she woke up about 330 this morning. She states that she felt thirsty. She drank some water. She states shortly after, she began to feel short of breath. She has a difficult time lying flat. She states that about 730 this morning, she drank some milk. Shortly thereafter, she had 2 episodes of nausea and vomiting. She denies fever. She denies chills or sweats. She denies chest pain. She does feel mildly dyspneic. [facility] Medical History Acute ischemic left MCA stroke Acute kidney injury Acute renal injury due to circulatory failure Asthma Atherosclerosis of coronary artery of [place] heart without angina pectoris Community acquired bacterial pneumonia Congestive heart failure Depression Essential hypertension GERD (gastroesophageal reflux disease) History of cholelithiasis History of CVA (cerebrovascular accident) History of renal calculi Hyperlipidemia Kidney disease Morbid obesity Type 2 diabetes mellitus without complication Home Medications aspirin 81 mg PO DAILY@0800 07/15/18 [History Last Taken 11/27/19] apixaban 5 mg PO BID 08/04/18 [History Last Taken 11/27/19] atorvastatin 80 mg PO QHS 08/04/18 [History Last Taken 11/26/19] insulin aspart U-100 15 unit SQ BIDCM 08/04/18 [History Last Taken 08/04/18] torsemide 100 mg tablet 50 mg PO BID tab 04/14/19 [History Last Taken 11/27/19] amlodipine 10 mg PO DAILY #30 tab 11/28/19 [Rx Last Taken Unknown] insulin glargine U-300 conc 300 unit/mL (1.5 mL) subcutaneous pen 22 unit SC DAILY ml 08/03/20 [History Last Taken Unknown] melatonin 5 mg tablet 5 mg PO HS PRN 08/03/20 [History Last Taken Unknown] buspirone 10 mg PO BID 09/20/20 [History Last Taken Unknown] pantoprazole 20 mg PO DAILY 09/20/20 [History Last Taken Unknown] Allergy/AdvReac Type Severity Reaction Status Date / Time No Known Allergies Allergy Verified 09/20/20 08:43 Family History Mother Diabetes Heart disease Hypertension Father Hypertension Heart disease Brother Heart disease Hypertension Sister Heart disease Diabetes Surgical History History of left heart catheterization History of PTCA S/P appendectomy S/P section S/P laparoscopic cholecystectomy Social History Smoking Status: Former smoker alcohol intake: never ROS ROS ED Constitutional Constitutional ED: Denies chills or fever(s) Eyes Eyes: Denies blurry vision or change in vision ENT ENT ED: Denies ear pain or sore throat Cardiovascular Cardiovascular: Denies chest pain or palpitations Respiratory/Chest Respiratory/Chest: Reports dyspnea Gastrointestinal Gastrointestinal: Reports nausea and vomiting Genitourinary Genitourinary ED: Denies dysuria or urinary frequency Musculoskeletal Musculoskeletal: Denies arthralgias or myalgias Integumentary Denies rash Neurologic Neurologic: Denies headache(s) or paresthesias Psychiatric Psychiatric: Denies anxiety or depression Endocrine Endocrinology: Denies polydipsia or polyuria Allergic/Immunologic Allergic/Immunologic ED: Denies urticaria EXAM Physical Exam Const Vital Signs: 09/20/20 08:39 09/20/20 08:58 09/20/20 09:52 Temperature 97.3 F L Temperature Source Temporal Pulse Rate 79 76 95 Respiratory Rate 19 H 20 H Respiratory Effort Short of Breath Labored Respiratory Depth Normal Respiratory Pattern Hyperpnea Blood Pressure 200/101 H 187/105 H 210/105 H Blood Pressure Mean 134 132 Pulse Ox 92 93 Oxygen Delivery Method Room Air Nasal Cannula Oxygen Flow Rate (L/min) 2 09/20/20 09:55 Temperature Temperature Source Pulse Rate 74 Respiratory Rate 20 H Respiratory Effort Respiratory Depth Respiratory Pattern Blood Pressure 210/105 H Blood Pressure Mean 140 Pulse Ox 94 Oxygen Delivery Method Nasal Cannula Oxygen Flow Rate (L/min) 2 Positive well nourished and well developed General Appearance ED: well developed HEENT Reports normocephalic, head/scalp atraumatic and moist mucous membranes Eyes PERRL and EOMs intact bilaterally Neck no lymphadenopathy and supple General: Negative for tenderness Chest Wall inspection of chest normal Resp normal respiratory effort Auscultation: diminished lung sounds Cardio regular rate, regular rhythm and no murmurs GI normal to inspection, nondistended, normoactive bowel sounds Palpation: Negative for tender, guarding or rebound tenderness present Back/Spine no CVA tenderness Cervical Spine: Negative for cervical spine tenderness Thoracic Spine / Upper Back: Negative for thoracic spinal tenderness Extremity normal to inspection General Extremety ED: Negative for tenderness Neuro oriented x3 and CN's II-XII intact bilaterally Neuro Narrative: No focal deficits appreciated. Sensorium / Orientation: alert Psych mental status grossly normal Skin no rashes or lesions noted, no wounds and skin turgor normal MDM MDM MDM Narrative Medical decision making narrative: Patient presents with shortness of breath, borderline hypoxia, nausea and with hypertension. EKG was obtained on arrival. EKG demonstrates sinus rhythm. There is no acute ischemic change. With the patient's hypoxia, she was placed on 2 L nasal cannula. My suspicion is that she does have some decompensated heart failure. Screening labs were obtained. She does have mild leukocytosis which I feel is likely reactive. Renal function is at her baseline. Cardiac enzymes were negative. BNP is mildly elevated. Chest x-ray is obtained. Is reviewed by both myself and the radiologist. She does have evidence of cephalization and small effusions. With her hypoxia, I do feel that she would benefit from admission for diuresis and better blood pressure control. The patient adamantly refuses. She states she just wants to go home. Both myself and her sister had a conversation with her to try and get her to reconsider. The patient still wants to leave. I did explain to her the risk of signing out AGAINST MEDICAL ADVICE including worsening shortness of breath, hypoxia, cardiac arrest, or permanent disability. She is excepted these risks. The patient does have capacity to make her own decisions. I did field counsel her that if anything changes at any time she feels like she wants to co me back she is more than welcome. I will give her IV Lasix. The patient will leave AGAINST MEDICAL ADVICE. Impression 1. Decompensated CHF with hypoxia Lab Data Attestation: I reviewed the patient's lab results. Labs: Laboratory Results - last 24 hr 09/20/20 09/20/20 09/20/20 09:05 09:05 09:05 WBC 14.1 H RBC 4.29 Hgb 12.3 Hct 38.0 MCV 88.6 MCH 28.7 MCHC 32.4 RDW Std Deviation 44.1 H RDW Coeff of [place] 13.7 Plt Count 176 MPV 11.7 Immature Gran % (Auto) 1.100 H Neut % (Auto) 87.6 H Lymph % (Auto) 4.0 L [place] % (Auto) 6.2 Eos % (Auto) 0.7 Baso % (Auto) 0.4 Absolute Neuts (auto) 12.3 H Absolute Lymphs (auto) 0.56 L Nucleated RBC % 0 Differential Comment COMMENT Sodium 137 Potassium 4.4 Chloride 107 Carbon Dioxide 21.0 Anion Gap 9 BUN 56 H Creatinine 2.48 H Estim Creat Clear Calc 23.34 Est GFR (MDRD) Af Amer 26 L Est GFR (MDRD) Non-Af 22 L BUN/Creatinine Ratio 22.6 H Glucose 198 H Calcium 8.0 L Total Bilirubin 1.10 H AST 32 ALT 34 Alkaline Phosphatase 99 Troponin I High Sens 12.4 B-Natriuretic Peptide 207.4 H Total Protein 6.8 Albumin 3.3 Globulin 3.5 Albumin/Globulin Ratio 0.9 Lipase 143 Radiography Chest X-Ray - ED: 1 View, Read by ED Physician, Bony Structures, Chronic Change s, CHF, Right Effusion and Left Effusion EKG Initial EKG: Attestation: I personally reviewed and interpreted this EKG as follows: Interpretation: Sinus Rhythm and No Acute Injury Pattern Prior EKG tracings: available for review Prior: Unchanged Discharge Plan Triage Chief Complaint: Shortness of Breath ED Provider: Eddie Clark Dx/Rx/DC Orders Instructions: ED CHF Left Side Prescriptions: No Action torsemide 100 mg tablet 50 mg PO BID RF: 0 melatonin 5 mg tablet 5 mg PO HS PRN (Reason: Sleep) RF: 0 aspirin 81 MG tablet,chewable 81 mg PO DAILY@0800 RF: 0 atorvastatin 80 MG tablet 80 mg PO QHS RF: 0 insulin aspart U-100 100 UNITS/ML insulin pen 15 unit SQ BIDCM RF: 0 apixaban 5 MG tablet 5 mg PO BID RF: 0 insulin glargine U-300 conc 300 unit/mL (1.5 mL) insulin pen 22 unit SC DAILY RF: 0 amlodipine 10 MG tablet 10 mg PO DAILY Qty: 30 RF: 0 pantoprazole 20 mg Tablet,Delayed Release (Dr/Ec) 20 mg PO DAILY RF: 0 buspirone 10 mg Tablet 10 mg PO BID RF: 0 Primary Care Provider: Page Sutton NP Referrals: Page Sutton NP, [facility]IDENT C[facility] TECHNICIAN-[facility] [Primary Care Provider] -
[2020-09-20 08:58] VITALS: BP 187/105; PULSE 76; RESP 20; O2SAT 93
[2020-09-20] MEDS: Ondansetron 4 MG/2 ML Vial IV (09:08)
[2020-09-20 09:17] LABS: Absolute Lymphocyte Count 0.56 X10^3/uL (0.83-4.51); Absolute Neutrophil Count 12.3 X10^3/uL (2.0-7.7); Basophil# 0.05 X10^3/uL; Basophil% 0.4 % (0-1); Differential Indicated SCAN CRITERIA MET; Eosinophils% 0.7 % (0-5); Hemoglobin 12.3 g/dL (12.0-15.0); Lymphocyte # 0.56 X10^3/ul (0.83-4.51); Mean Corp Hgb Conc 32.4 g/dL (32-36); Mean Corpuscular Hgb 28.7 pg (27.0-32.0); Mean Corpuscular Volume 88.6 fL (81-99); Mean Platelet Vol. 11.7 fl (6.2-12.0); Monocyte# 0.87 X10^3/uL; Monocyte% 6.2 % (0-10); NRBC Flagged by Analyzer 0 % (0-5); Neutrophil # 12.34 X10^3/uL (2.7-7.7); Neutrophil % 87.6 % (47-70); POSITIVE DIFFERENTIAL YES; Platelet Count 176 K/mm3 (150-450); RBC Distribution Width CV 13.7 % (11.6-14.6); RBC Distribution Width SD 44.1 fl (35.1-43.9); Red Blood Count 4.29 M/mm3 (4.2-5.4); White Blood Count 14.1 K/mm3 (4.4-11.0)
[2020-09-20 09:35] LABS: BNP,B-Type NATRIURETIC PEPTIDE 207.4 pg/mL (0-100)
[2020-09-20 09:36] LABS: ALB/GLOB Ratio 0.9 RATIO (0.9-2.4); AST(SGOT) 32 U/L (15-37); Alanine Aminotransfer ALT/SGPT 34 U/L (13-56); Albumin, Serum 3.3 g/dL (3.2-5.0); Alkaline Phosphatase 99 U/L (45-117); Anion Gap 9 (5-15); BUN 56 mg/dL (7-18); BUN/Creat Ratio 22.6 RATIO (10-20); Chloride 107 mmol/L (98-107); Creatinine, Serum 2.48 mg/dL (0.55-1.02); EST Glomerular Filtration Rate 22 mL/min (>60); Est Glom Filt Rate - Afr Amer 26 mL/min (>60); Estimated Creatinine Clearance 23.34 ml/min; Globulin 3.5 g/dL (2.2-4.2); Glucose 198 mg/dL (74-106); Lipase 143 U/L (73-393); Potassium 4.4 mmol/L (3.5-5.1); Protein, Total 6.8 g/dL (6.4-8.2); Sodium Level 137 mmol/L (136-145); Troponin-I HS 12.4 pg/mL (3.0-53.7)
[2020-09-20 09:52] VITALS: BP 210/105; PULSE 95
[2020-09-20] MEDS: Nitroglycerin Oint 1 INCH PACKET TD (09:52)
[2020-09-20] MEDS: Furosemide 100 MG/10 ML Vial 60 MG IV (09:52)
--- NOTE | 2020-09-20 09:54 | ED.RN ---
Pt states that she wants to go home. Dr Clark aware
[2020-09-20 09:55] VITALS: BP 210/105; PULSE 74; RESP 20; O2SAT 94
[2020-09-20 10:14] VITALS: BP 227/96; PULSE 76; RESP 16; O2SAT 95
--- NOTE | 2020-09-20 10:25 | ED.RN ---
PT a+O X4, EDUCATED ON WRITTEN AND VERBAL DISCHARGE INSTRUCTIONS. PT EDUCATED ABOUT LEAVING AGAINST WRITTEN AND CONGESTIVE HEART FAILURE. DR. CORREA AT BEDSIDE TO SPEAK WITH PATIENT. PT VERBALIZES UNDERSTANDING AND DENIES ANY FURTHER QUESTIONS. PT IV D/C AND COVERED WITH 2X2 GAUZE AND PAPER TAPE. NITRO PASTE REMOVED FROM BACK. PT DRESSES SELF AND AMBULATES OUT OF DEPT WITH SISTER.
== END 2020-09-20 10:29 | disposition left against medical advice (07) ==
PROVIDERS: Emergency Provider Emergency Medicine; PCP Nurse Practitioner Family
DX: I13.0 Hypertensive heart and chronic kidney disease with heart failure and stage 1 through stage 4 chronic kidney disease, or unspecified chronic kidney disease (principal); I50.9 Heart failure, unspecified; R09.02 Hypoxemia; J45.909 Unspecified asthma, uncomplicated; I25.10 Atherosclerotic heart disease of native coronary artery without angina pectoris; K21.9 Gastro-esophageal reflux disease without esophagitis; E78.5 Hyperlipidemia, unspecified; E66.01 Morbid (severe) obesity due to excess calories; E11.22 Type 2 diabetes mellitus with diabetic chronic kidney disease; Z86.73 Personal history of transient ischemic attack (TIA), and cerebral infarction without residual deficits; Z79.4 Long term (current) use of insulin; Z79.899 Other long term (current) drug therapy; Z87.891 Personal history of nicotine dependence
CPT/HCPCS: 71045; 80053; 83690; 83880; 84484; 85025; 93005; A4216; J1940; J2405

== ENCOUNTER 2020-09-20 12:05 | Inpatient (IN) | payer MEDICARE, MEDICAID, SELFPAY ==
[2020-09-20] VITALS (15 sets, daily range): BP systolic 165–203; BP diastolic 60–88; PULSE 66–81; RESP 16–22; TEMP 36.7–37.1; O2SAT 88–98; BMI 39.4; BMI 39.1; BMI 41.1
--- NOTE | 2020-09-20 12:13 | ED.VIS.DYS ---
HPI History of Present Illness Chief Complaint: Shortness of Breath Narrative Narrative: I did evaluate this patient earlier. She had shortness of breath, nausea, and was hypertensive. Her work-up did demonstrate that she had CHF with hypoxia. There was question of pneumonia on her x-ray, but she is not had cough or fever. I do feel this is more likely volume. On arrival, the patient is still hypoxic. She does agree with plan for admission. [facility] Medical History Acute ischemic left MCA stroke Acute kidney injury Acute renal injury due to circulatory failure Asthma Atherosclerosis of coronary artery of [place] heart without angina pectoris Community acquired bacterial pneumonia Congestive heart failure Depression Essential hypertension GERD (gastroesophageal reflux disease) History of cholelithiasis History of CVA (cerebrovascular accident) History of renal calculi Hyperlipidemia Kidney disease Morbid obesity Type 2 diabetes mellitus without complication Home Medications aspirin 81 mg PO DAILY@0800 07/15/18 [History Last Taken 11/27/19] apixaban 5 mg PO BID 08/04/18 [History Last Taken 11/27/19] atorvastatin 80 mg PO QHS 08/04/18 [History Last Taken 11/26/19] insulin aspart U-100 15 unit SQ BIDCM 08/04/18 [History Last Taken 08/04/18] torsemide 100 mg tablet 50 mg PO BID tab 04/14/19 [History Last Taken 11/27/19] amlodipine 10 mg PO DAILY #30 tab 11/28/19 [Rx Last Taken Unknown] insulin glargine U-300 conc 300 unit/mL (1.5 mL) subcutaneous pen 22 unit SC DAILY ml 08/03/20 [History Last Taken Unknown] melatonin 5 mg tablet 5 mg PO HS PRN 08/03/20 [History Last Taken Unknown] buspirone 10 mg PO BID 09/20/20 [History Last Taken Unknown] pantoprazole 20 mg PO DAILY 09/20/20 [History Last Taken Unknown] Allergy/AdvReac Type Severity Reaction Status Date / Time No Known Allergies Allergy Verified 09/20/20 12:06 Family History Mother Diabetes Heart disease Hypertension Father Hypertension Heart disease Brother Heart disease Hypertension Sister Heart disease Diabetes Surgical History History of left heart catheterization History of PTCA S/P appendectomy S/P section S/P laparoscopic cholecystectomy Social History Smoking Status: Former smoker alcohol intake: never ROS ROS ED Constitutional Constitutional ED: Denies chills or fever(s) Eyes Eyes: Denies blurry vision or change in vision ENT ENT ED: Denies ear pain or sore throat Cardiovascular Cardiovascular: Reports orthopnea and paroxysmal nocturnal dyspnea Respiratory/Chest Respiratory/Chest: Reports dyspnea, dyspnea on exertion, orthopnea and paroxysmal nocturnal dyspnea Gastrointestinal Gastrointestinal: Denies abdominal pain, nausea or vomiting Genitourinary Genitourinary ED: Denies dysuria or urinary frequency Musculoskeletal Musculoskeletal: Denies arthralgias or myalgias Integumentary Denies rash Neurologic Neurologic: Denies headache(s) or paresthesias Psychiatric Psychiatric: Denies anxiety or depression Endocrine Endocrinology: Denies polydipsia or polyuria Allergic/Immunologic Allergic/Immunologic ED: Denies urticaria EXAM Physical Exam Const Vital Signs: 09/20/20 12:06 Temperature 98.0 F Temperature Source Temporal Pulse Rate 81 Respiratory Rate 16 Blood Pressure 176/86 H Blood Pressure Mean 116 Pulse Ox 88 Oxygen Delivery Method Room Air Positive well nourished and well developed General Appearance ED: well developed HEENT Reports normocephalic, head/scalp atraumatic and moist mucous membranes Eyes PERRL and EOMs intact bilaterally Neck no lymphadenopathy and supple General: Negative for tenderness Chest Wall inspection of chest normal Resp normal respiratory effort Auscultation: rales and diminished lung sounds Cardio regular rate, regular rhythm and no murmurs GI normal to inspection, nondistended, normoactive bowel sounds Palpation: Negative for tender, guarding or rebound tenderness present Back/Spine no CVA tenderness Cervical Spine: Negative for cervical spine tenderness Thoracic Spine / Upper Back: Negative for thoracic spinal tenderness Extremity normal to inspection General Extremety ED: Negative for tenderness Neuro oriented x3 and CN's II-XII intact bilaterally Neuro Narrative: No focal deficits appreciated. Sensorium / Orientation: alert Psych mental status grossly normal Skin no rashes or lesions noted, no wounds and skin turgor normal MDM MDM MDM Narrative Medical decision making narrative: The patient presents with persistent shortness of breath. At this time, she does state that she would stay for diuresis and oxygen support. She was given Lasix earlier and is already having decent diuresis. I did not repeat her work-up as this was completed just a few hours ago. The patient was discussed with the hospitalist. Impression 1. CHF with hypoxia Discharge Plan Triage Chief Complaint: Shortness of Breath ED Provider: Eddie Clark Dx/Rx/DC Orders Prescriptions: No Action torsemide 100 mg tablet 50 mg PO BID RF: 0 melatonin 5 mg tablet 5 mg PO HS PRN (Reason: Sleep) RF: 0 aspirin 81 MG tablet,chewable 81 mg PO DAILY@0800 RF: 0 atorvastatin 80 MG tablet 80 mg PO QHS RF: 0 insulin aspart U-100 100 UNITS/ML insulin pen 15 unit SQ BIDCM RF: 0 apixaban 5 MG tablet 5 mg PO BID RF: 0 insulin glargine U-300 conc 300 unit/mL (1.5 mL) insulin pen 22 unit SC DAILY RF: 0 amlodipine 10 MG tablet 10 mg PO DAILY Qty: 30 RF: 0 pantoprazole 20 mg Tablet,Delayed Release (Dr/Ec) 20 mg PO DAILY RF: 0 buspirone 10 mg Tablet 10 mg PO BID RF: 0 Primary Care Provider: Page Sutton NP
--- NOTE | 2020-09-20 12:30 | CT_ITS ---
STUDY: CT CHEST WITHOUT CONTRAST REASON FOR EXAM: Female, 54 years old. sob RADIATION DOSAGE (If Supplied By Facility): CTDIvol = ( 19.54 ) mGy, DLP = ( 659.15 ) mGycm TECHNIQUE: Transaxial imaging was performed without the administration of intravenous contrast material. Individualized dose optimization techniques were used for this CT. COMPARISON: None. FINDINGS: There are diffuse patchy changes involving both lung [place] more so on the right. ( Please rule out Covid -190. Otherwise other infectious process cannot be excluded. There is bilateral pleural effusion with some atelectasis in the right base. There is a lymph node adjacent to the proximal descending aorta measures 2.1 x 0.7 cm few paratracheal lymph nodes are also seen but no retrosternal lymphadenopathy. The visualized bones are intact. The upper abdomen organs are unremarkable CT/Chest without Contrast IMPRESSION: Diffuse patchy changes involving both lung [place] more on the right side as described above. Electronically Signed: Pillo Hernandez, at 13:59 EDT Tel , Service support ,
--- NOTE | 2020-09-20 13:02 | PCM.HP.STD ---
HPI - General HPI Narrative ZAYDA ANTOINE, is a 54 F who presented to the emergency department [facility] on 09/20/2020 originally at approximately 830 this morning complaining of shortness of breath. She reported at that time she woke up at 330 this morning and felt thirsty so she got up and drank some water and went back to bed. She states that she then got up at 730 to take her pills and drink some milk with them and shortly thereafter had 2 episodes of nausea and vomiting. She has had none since she denies chest pain. She has had some intermittent shortness of breath since then although this is mild. She has had no fever or chills and was well yesterday and this morning when she woke up at 330. She has a history of marked hypertension with admissions for hypertensive emergency and CKD. She left AMA from her initial presentation and states she went home for approximately 20 minutes when her sister made her come back to the emergency department. She does not wear home oxygen and recently had an ambulatory 6-minute walk test that showed she does not require oxygen. Her oxygen saturations were 88% on room air and normalized with 2 L nasal cannula. She was noted to be markedly hypertension on presentation with systolic pressures as high as 210 and diastolic pressures as high as 105. She is afebrile and has no tachypnea. She reports to me she took all her medications again after she vomited them initially but is an extremely poor historian. Her CBC shows only a mildly elevated white count at 14.1. She has an elevated BUN and creatinine which appears to be baseline and both are stable. Her total bilirubin is mildly elevated at 1.1. Her high-sensitivity troponin was 12.4 is within normal range. And a BUN was obtained and was 207 which is elevated but when compared to previous BNP's from 2019 has improved. Her chest x-ray was read with limited right middle lobe pneumonia. A CT scan was done to better delineate and appears to so patchy groundglass appearance which is likely related to pulmonary edema from her hypertension and she does appear to have a right middle lobe consolidation-the official read is pending from radiology. She was initially treated with Lasix in the emergency department and has had good urine output and was placed on supplemental oxygen. We will admit to PCU for further care. [facility] Medical History Acute ischemic left MCA stroke Acute kidney injury Acute renal injury due to circulatory failure Asthma Atherosclerosis of coronary artery of [place] heart without angina pectoris Community acquired bacterial pneumonia Congestive heart failure Depression Essential hypertension GERD (gastroesophageal reflux disease) History of cholelithiasis History of CVA (cerebrovascular accident) History of renal calculi Hyperlipidemia Kidney disease Morbid obesity Type 2 diabetes mellitus without complication Home Medications aspirin 81 mg PO DAILY@0800 07/15/18 [History Last Taken 11/27/19] apixaban 5 mg PO BID 08/04/18 [History Last Taken 11/27/19] atorvastatin 80 mg PO QHS 08/04/18 [History Last Taken 11/26/19] insulin aspart U-100 15 unit SQ BIDCM 08/04/18 [History Last Taken 08/04/18] torsemide 100 mg tablet 50 mg PO BID tab 04/14/19 [History Last Taken 11/27/19] amlodipine 10 mg PO DAILY #30 tab 11/28/19 [Rx Last Taken Unknown] insulin glargine U-300 conc 300 unit/mL (1.5 mL) subcutaneous pen 22 unit SC DAILY ml 08/03/20 [History Last Taken Unknown] melatonin 5 mg tablet 5 mg PO HS PRN 08/03/20 [History Last Taken Unknown] buspirone 10 mg PO BID 09/20/20 [History Last Taken Unknown] pantoprazole 20 mg PO DAILY 09/20/20 [History Last Taken Unknown] Allergy/AdvReac Type Severity Reaction Status Date / Time No Known Allergies Allergy Verified 09/20/20 12:06 Family History Mother Diabetes Heart disease Hypertension Father Hypertension Heart disease Brother Heart disease Hypertension Sister Heart disease Diabetes Surgical History History of left heart catheterization History of PTCA S/P appendectomy S/P section S/P laparoscopic cholecystectomy Social History Smoking Status: Former smoker alcohol intake: never ROS ROS Narrative Patient is an extremely poor historian Review of Systems ROS Unobtainable: Denies due to encephalopathy, due to endotracheal tube, due to mental condition, due to mental status or other Constitutional Constitutional: Denies anorexia, change in weight, chills, fatigue, fever(s), malaise, night sweats, weakness or other Eyes Eyes: Denies blurry vision, change in eye color, change in vision, discharge from eye(s), double vision, erythema, eye pain, loss of vision or other ENT HEENT: Denies abnormal hearing, dysphagia, ear pain, epistaxis, headache(s), hearing loss, nasal congestion, nasal discharge, post nasal drip, sinus pressure, sore throat or other Cardiovascular Cardiovascular: Denies chest pain, claudication, dyspnea on exertion, edema, lightheadedness, orthopnea, palpitations, paroxysmal nocturnal dyspnea, rapid heart rate, syncope or other Respiratory/Chest Respiratory/Chest: Reports cough, dyspnea, shortness of breath at rest and shortness of breath with exertion; Denies excessive phlegm production, hemoptysis or productive cough Gastrointestinal Gastrointestinal: Reports nausea, vomiting and other Details: Vomiting and nausea have now resolved ; Denies abdominal pain, coffee ground emesis, constipation, diarrhea, dyspepsia, hematemesis, hematochezia, loose stools or melena Genitourinary Genitourinary: Denies burning urination, difficulty urinating, dysuria, hematuria, nocturia, urinary frequency, urinary hesitancy, urinary incontinence, urinary urgency or other Musculoskeletal Musculoskeletal: Denies arthralgias, back pain, joint pain, joint stiffness, joint swelling, myalgias, neck pain or other Neurologic Neurologic: Denies abnormal gait, abnormal speech, confusion, disequilibrium, dizziness, focal weakness, headache(s), numbness, paresthesias, seizure-like activity, seizures, syncope, tingling, tremor(s) or other Psychiatric Psychiatric: Denies anxiety, depression, homicidal ideation, suicidal ideation or other Endocrine Endocrinology: Denies change in body appearance, cold intolerance, excessive sweating, heat intolerance, polydipsia, polyuria or other Hematologic/Lymphatic Hematologic/Lymphatic: Denies anemia, easy bleeding, easy bruising, lymphadenopathy or other Allergic/Immunologic Allergic/Immunologic: Denies rhinitis, hives, eczemia, asthma or other Vital Signs Vital Signs Vital Signs: 09/20/20 12:06 09/20/20 12:13 09/20/20 12:50 Temperature 98.0 F 98.0 F Temperature Source Temporal Temporal Pulse Rate 81 71 Respiratory Rate 16 18 Respiratory Effort Short of Breath Labored Respiratory Depth Normal Respiratory Pattern Normal Blood Pressure 176/86 H 172/69 H Blood Pressure Mean 116 103 Pulse Ox 88 94 97 Oxygen Delivery Method Room Air Nasal Cannula Nasal Cannula Oxygen Flow Rate (L/min) 2 2 Weight Weight: 100.244 kg Body Mass Index (BMI) 39.1 Physical Exam Const alert, oriented x3, no apparent distress, average body habitus, healthy appearing and well nourished Constitutional Narrative: Obese middle-aged white female who appears older than stated age, lying in bed watching television, appears comfortable and asks if she can just go home, appears to have a limited medical knowledge especially with regards to her own health General Appearance: cooperative HEENT normocephalic, head/scalp atraumatic, hearing grossly normal bilaterally, moist oral mucous membranes and oropharynx normal Mouth: oral and palatal mucosa normal Eyes PERRL, EOMs intact bilaterally and conjunctivae normal Neck no lymphadenopathy, supple, no JVD and no carotid bruits Neck Narrative: Trachea midline, no thyromegaly or nodules noted with palpation Resp normal respiratory effort, no retractions, no use of accessory muscles and No clear to auscultation bilaterally Resp Narrative: Diminished right middle lobe, few crackles scattered Auscultation: crackles; Negative for rales, rhonchi or wheezes Cardio regular rate, regular rhythm, S1 normal heart sound, S2 normal heart sound, no rub, no clicks and no JVD Cardio Narrative: 2 out of 6 systolic murmur, S4 gallop GI normal to inspection, nondistended, normoactive bowel sounds, soft to palpation and non-distended Extremity normal to inspection, full ROM and no clubbing, cyanosis or edema Peripheral Pulses: Yes pulses 2+ throughout Skin no rashes or lesions noted, no wounds, skin turgor normal, no jaundice, no petechiae and no mottling Skin Narrative: Pale skin Neuro oriented x3, CN's II-XII intact bilaterally and moves all extremities Neuro Narrative: Speech is somewhat childlike Sensorium / Orientation: awake, alert, oriented to person, oriented to place and oriented to time Psych Psych Narrative: Calm Assessment & Plan Assessment/Plan (1) Hypoxia: (2) Hypertensive emergency: (3) Hyperlipidemia: (4) Chronic kidney disease: PLAN: Acute hypoxic respiratory insufficiency -Patient is typically on room air and is requiring 2 to 3 L to maintain oxygen saturation -I suspect this is related to flash pulmonary edema related to her untreated hypertension plus/minus right middle lobe pneumonia -Patient was given Lasix in the emergency department and takes daily torsemide at home -Continue home furosemide -Obtain improved blood pressure control -Check urine antigens for strep pneumo and Legionella -CT of chest is pending -MRSA PCR -Start azithromycin and ceftriaxone -Wean oxygen as able -Pulmonary toilet Hypertensive emergency -Patient has had admissions for hypertensive emergency in the past -Patient reports compliance with medications -If this is the case we need to titrate medications and add antihypertensives -Nitro placed paste in the emergency department -Continue home amlodipine -Continue home Demadex -Restart Coreg 12.5 daily--> it appears patient was taking this in July -Repeat hydralazine 100 mg 3 times daily--> this was on med rec from cardiology visit early July 2020 -Goal blood pressure for today is 160 systolic and will drop further in the next 24 hours -Cycle cardiac enzymes -Blood pressure was well controlled at her cardiology visit from 08/03/2020 but her medications appear to be different than what they are currently on her med rec--> will restart medications that are currently not on her med rec CKD stage IV -Serum creatinine is at baseline -Avoid nephrotoxins -Baseline creatinine is 2.2-2.5 -We will recommend nephrology follow-up after discharge CAD/HTN hyperlipidemia/history of stroke(left MCA) -CAD with stent to LAD in 2016 -Continue statin -Continue apixaban DM-2 -Continue home insulin regimen GERD -Continue Protonix Depression/anxiety -Continue BuSpar Obesity -BMI is 39.1 -Complicates overall medical care, outcomes, and prognosis -Recommend weight loss DVT prophylaxis -Continue NOAC CODE STATUS -Full code Charges/Coding Visit Charges Inpatient E&M: 57324 Init Hosp L3
[2020-09-20] MEDS: Ceftriaxone 1 GM/50 ML BAG IV (14:59)
[2020-09-20] MEDS: hydrALAZINE 50 MG Tablet 100 MG PO ×2 (15:00→22:21)
[2020-09-20] MEDS: Insulin Lispro 100 UNIT/ML INSULN.PEN SC ×2 (15:55→22:27)
[2020-09-20 16:07] LABS: Troponin-I HS 12.1 pg/mL (3.0-53.7)
[2020-09-20 16:11] LABS: Bedside Glucose 201 mg/dL (70-110)
[2020-09-20 16:16] LABS: M R Staph aureus DNA By PCR Negative (Negative); Probe Check PASS; Specimen Processing Control PASS
[2020-09-20 17:56] LABS: Troponin-I HS 13.1 pg/mL (3.0-53.7)
[2020-09-20] MEDS: Torsemide 100 MG Tablet 50 MG PO (18:07)
[2020-09-20] MEDS: Ipratropium/Albuterol Sulfate 3 ML AMPUL.NEB INHALATION ×2 (19:33→23:43)
[2020-09-20] MEDS: Acetaminophen 325 MG Tablet 650 MG PO (20:12)
[2020-09-20 21:46] LABS: Troponin-I HS 13.6 pg/mL (3.0-53.7)
[2020-09-20] MEDS: Atorvastatin Calcium 80 MG Tablet PO (22:21)
[2020-09-20] MEDS: Carvedilol 12.5 MG Tablet PO (22:21)
[2020-09-20] MEDS: 0.9% Saline Lock 10 ML Syringe IV (22:23)
[2020-09-20] MEDS: APIXABAN 5 MG TABLET PO (22:23)
[2020-09-20 22:40] LABS: Bedside Glucose 175 mg/dL (70-110)
[2020-09-21] VITALS (19 sets, daily range): BP systolic 130–155; BP diastolic 67–85; PULSE 62–77; RESP 16–20; TEMP 37–37.5; O2SAT 88–96
[2020-09-21] MEDS: hydrALAZINE 50 MG Tablet 100 MG PO ×3 (05:16→20:09)
[2020-09-21 06:28] LABS: Absolute Lymphocyte Count 0.85 X10^3/uL (0.83-4.51); Absolute Neutrophil Count 7.9 X10^3/uL (2.0-7.7); Basophil# 0.03 X10^3/uL; Basophil% 0.3 % (0-1); Eosinophil# 0.08 X10^3/uL; Eosinophils% 0.8 % (0-5); Hematocrit 31.5 % (37-47); Hemoglobin 10.2 g/dL (12.0-15.0); Lymphocyte # 0.85 X10^3/ul (0.83-4.51); Lymphocyte % 8.6 % (19-41); Mean Corp Hgb Conc 32.4 g/dL (32-36); Mean Corpuscular Hgb 28.6 pg (27.0-32.0); Mean Corpuscular Volume 88.2 fL (81-99); Mean Platelet Vol. 12.3 fl (6.2-12.0); Monocyte% 10.1 % (0-10); NRBC Flagged by Analyzer 0 % (0-5); Neutrophil # 7.91 X10^3/uL (2.7-7.7); Neutrophil % 79.6 % (47-70); Platelet Count 158 K/mm3 (150-450); RBC Distribution Width CV 13.7 % (11.6-14.6); RBC Distribution Width SD 44.4 fl (35.1-43.9); Red Blood Count 3.57 M/mm3 (4.2-5.4); White Blood Count 9.9 K/mm3 (4.4-11.0)
[2020-09-21 06:46] LABS: Bedside Glucose 128 mg/dL (70-110)
[2020-09-21] MEDS: Ipratropium/Albuterol Sulfate 3 ML AMPUL.NEB INHALATION ×5 (07:05→23:02)
[2020-09-21 07:16] LABS: ALB/GLOB Ratio 0.8 RATIO (0.9-2.4); AST(SGOT) 20 U/L (15-37); Alanine Aminotransfer ALT/SGPT 24 U/L (13-56); Albumin, Serum 2.4 g/dL (3.2-5.0); Alkaline Phosphatase 72 U/L (45-117); Anion Gap 8 (5-15); BUN 61 mg/dL (7-18); BUN/Creat Ratio 22.3 RATIO (10-20); Calcium,Total 7.3 mg/dL (8.5-10.1); Chloride 107 mmol/L (98-107); Creatinine, Serum 2.74 mg/dL (0.55-1.02); EST Glomerular Filtration Rate 19 mL/min (>60); Est Glom Filt Rate - Afr Amer 23 mL/min (>60); Estimated Creatinine Clearance 19.42 ml/min; Globulin 3.1 g/dL (2.2-4.2); Glucose 117 mg/dL (74-106); Magnesium 2.1 mg/dL (1.6-2.6); Phosphorus 4.3 mg/dL (2.5-4.9); Potassium 3.8 mmol/L (3.5-5.1); Protein, Total 5.5 g/dL (6.4-8.2); Sodium Level 139 mmol/L (136-145); Thyroid Stim Hormone (TSH) 1.18 uIU/mL (0.358-3.74)
[2020-09-21] MEDS: Carvedilol 12.5 MG Tablet PO ×2 (08:56→20:09)
[2020-09-21] MEDS: Aspirin 81 MG TAB.CHEW PO (08:56)
[2020-09-21] MEDS: APIXABAN 5 MG TABLET PO ×2 (08:56→20:10)
[2020-09-21] MEDS: Ceftriaxone 1 GM/50 ML BAG IV (10:13)
[2020-09-21] MEDS: Acetaminophen 325 MG Tablet 650 MG PO ×2 (10:13→20:09)
[2020-09-21] MEDS: Torsemide 100 MG Tablet 50 MG PO ×2 (10:14→17:19)
--- NOTE | 2020-09-21 10:23 | EKG12_ITS ---
Test Reason : SOB Blood Pressure : / mmHG Vent. Rate : 075 BPM Atrial Rate : 075 BPM P-R Int : 226 ms QRS Dur : 080 ms QT Int : 394 ms P-R-T Axes : 063 000 -01 degrees QTc Int : 439 ms Sinus rhythm with 1st degree A-V block Septal infarct , age undetermined Abnormal ECG Confirmed by JAREN REYES, ALTON ([id number]), restaurant expeditor CAROLYN GROSS ([id number]) on 09/21/2020 12:58:40 PM Referred By: MADELINE Confirmed By:ALTON EASTMAN MD
--- NOTE | 2020-09-21 10:30 | CASEMGMT ---
Palliative screening tool completed for [facility]. Patient meets criteria for palliative consult, hospitalist notified, no referral at this time.
--- NOTE | 2020-09-21 11:40 | CASEMGMT ---
SAPNA WINN Face to Face with patient for initial transition planning/care coordination assessment. Patient states that her sister Stephy is her caregiver and requests SAPNA WINN to call sister for discharge planning. SAPNA WINN called sister Stephy. SAPNA WINN introduced self and role at [facility]. Sister willing to participate in assessment and is able to answer all questions appropriately. Care providers, pharmacy, and demographics verified. Patient wishes to discharge home and would like HHC at discharge and prefers [facility] HHC. Sister states she also prefers [facility] for DME if needed. Sister states she has no further needs or concerns at this time. CM to follow for discharge planning needs that may arise. PCP: Lesley SHELLAC POLISHER Specialists: Juan C, card clothier; Yosi, line clearance foreman; Alexandro tin pot operator [facility] Prescription Benefit: yes Living Will/HPOA: none LNOK: sister Living Arrangements: Patient lives with sister in a mobile home with 6 steps and railing to enter the home. Patient is independent at home. Transportation: sister, brother DME/HHC: Patient has walker and grab bars at home. Patient has previously had [facility]. SAPNA WINN made referral to [facility] and awaiting acceptance. Disposition Plan: Patient to discharge home with HHC, family support, and follow-up plans in place. Akiko NICOLE, RN, CM
[2020-09-21] MEDS: Insulin Lispro 100 UNIT/ML INSULN.PEN SC ×3 (12:50→17:20)
[2020-09-21 13:00] LABS: Bedside Glucose 193 mg/dL (70-110)
--- NOTE | 2020-09-21 13:04 | CASEMGMT ---
SAPNA WINN NOTE: Call received from Harriet @ [facility]. She states they can accept pt if able to do SOC on Thursday. Harriet made aware this would be acceptable. Call placed to pt's sister, June, and she was made aware they are able to accept pt but SOC would not be until Thursday and inquired if she is agreeable to this. Stephy states that SOC is okay. She states she will be at work, but pt's boyfriend will be there and can help w/any questions they may have. Stephy was provided w/[facility] contact #. DGiauque COREY ALEJO CM
--- NOTE | 2020-09-21 14:02 | PCM.PN.HOSP ---
Subjective Subjective Patient reports her breathing is better today. She complains of a bloody nose. Upon further questioning she just had blood-tinged mucus after blowing her nose that is likely related to her oxygen supplementation. Sats are 94% on room air at rest and 90% with ambulation. She complains of a headache that has been persistent since admission although did not mention this yesterday. Objective Data Objective Data Vital Signs: Vital Signs Temp Pulse Resp BP Pulse Ox 99.5 F H 62 18 134/67 H 94 09/21/20 10:16 09/21/20 12:50 09/21/20 11:11 09/21/20 10:16 09/21/20 10:16 Oxygen Flow Rate (L/min) 2.5 Oxygen Delivery Method Room Air Weight: 103.7 kg Body Mass Index (BMI) 41.1 Intake & Output: Intake and Output for Last 24 Hours 09/19/20 09/20/20 09/21/20 23:59 23:59 23:59 Intake Total 746.5 / 746.5 1125 / 1125 Output Total 300 / 300 Balance 446.5 / 446.5 1125 / 1125 Lab / Micro Data Result Diagrams: 09/21/20 05:30 09/21/20 05:30 Labs: Laboratory Results - last 24 hr 09/20/20 09/20/20 09/20/20 14:15 15:13 15:48 WBC RBC Hgb Hct MCV MCH MCHC RDW Std Deviation RDW Coeff of [place] Plt Count MPV Immature Gran % (Auto) Neut % (Auto) Lymph % (Auto) [place] % (Auto) Eos % (Auto) Baso % (Auto) Absolute Neuts (auto) Absolute Lymphs (auto) Nucleated RBC % Sodium Potassium Chloride Carbon Dioxide Anion Gap BUN Creatinine Estim Creat Clear Calc Est GFR (MDRD) Af Amer Est GFR (MDRD) Non-Af BUN/Creatinine Ratio Glucose Calcium Phosphorus Magnesium Total Bilirubin AST ALT Alkaline Phosphatase Troponin I High Sens 12.1 Total Protein Albumin Globulin Albumin/Globulin Ratio TSH MRSA (PCR) Negative POC Glucose 201 H 09/20/20 09/20/20 09/20/20 17:10 21:20 22:26 WBC RBC Hgb Hct MCV MCH MCHC RDW Std Deviation RDW Coeff of [place] Plt Count MPV Immature Gran % (Auto) Neut % (Auto) Lymph % (Auto) [place] % (Auto) Eos % (Auto) Baso % (Auto) Absolute Neuts (auto) Absolute Lymphs (auto) Nucleated RBC % Sodium Potassium Chloride Carbon Dioxide Anion Gap BUN Creatinine Estim Creat Clear Calc Est GFR (MDRD) Af Amer Est GFR (MDRD) Non-Af BUN/Creatinine Ratio Glucose Calcium Phosphorus Magnesium Total Bilirubin AST ALT Alkaline Phosphatase Troponin I High Sens 13.1 13.6 Total Protein Albumin Globulin Albumin/Globulin Ratio TSH MRSA (PCR) POC Glucose 175 H 09/21/20 09/21/20 09/21/20 05:30 05:30 06:38 WBC 9.9 RBC 3.57 L Hgb 10.2 L Hct 31.5 L MCV 88.2 MCH 28.6 MCHC 32.4 RDW Std Deviation 44.4 H RDW Coeff of [place] 13.7 Plt Count 158 MPV 12.3 H Immature Gran % (Auto) 0.600 Neut % (Auto) 79.6 H Lymph % (Auto) 8.6 L [place] % (Auto) 10.1 H Eos % (Auto) 0.8 Baso % (Auto) 0.3 Absolute Neuts (auto) 7.9 H Absolute Lymphs (auto) 0.85 Nucleated RBC % 0 Sodium 139 Potassium 3.8 Chloride 107 Carbon Dioxide 24.0 Anion Gap 8 BUN 61 H Creatinine 2.74 H Estim Creat Clear Calc 19.42 Est GFR (MDRD) Af Amer 23 L Est GFR (MDRD) Non-Af 19 L BUN/Creatinine Ratio 22.3 H Glucose 117 H Calcium 7.3 L Phosphorus 4.3 Magnesium 2.1 Total Bilirubin 0.80 AST 20 ALT 24 Alkaline Phosphatase 72 Troponin I High Sens Total Protein 5.5 L Albumin 2.4 L Globulin 3.1 Albumin/Globulin Ratio 0.8 L TSH 1.18 MRSA (PCR) POC Glucose 128 H 09/21/20 12:49 WBC RBC Hgb Hct MCV MCH MCHC RDW Std Deviation RDW Coeff of [place] Plt Count MPV Immature Gran % (Auto) Neut % (Auto) Lymph % (Auto) [place] % (Auto) Eos % (Auto) Baso % (Auto) Absolute Neuts (auto) Absolute Lymphs (auto) Nucleated RBC % Sodium Potassium Chloride Carbon Dioxide Anion Gap BUN Creatinine Estim Creat Clear Calc Est GFR (MDRD) Af Amer Est GFR (MDRD) Non-Af BUN/Creatinine Ratio Glucose Calcium Phosphorus Magnesium Total Bilirubin AST ALT Alkaline Phosphatase Troponin I High Sens Total Protein Albumin Globulin Albumin/Globulin Ratio TSH MRSA (PCR) POC Glucose 193 H Micro: Microbiology 09/21/20 04:40 Urine, Clean Catch Streptococcus pneumoniae Antigen (M - Final 09/20/20 20:26 Urine, Clean Catch Legionella Antigen - Final 09/20/20 14:16 Mucosa - Nasopharyngeal Respiratory Panel (PCR) - Final 09/20/20 15:20 Mucosa - Nose SARS-CoV-2 Antigen (Rapid) - Final Physical Exam Const alert, oriented x3, no apparent distress, average body habitus, healthy appearing and well nourished Constitutional Narrative: Obese middle-aged white female who appears older than stated age, sitting up in bed watching television, appears comfortable, nontoxic appearing, now on room air, seems a bit slow supratentorially General Appearance: cooperative HEENT normocephalic, head/scalp atraumatic, hearing grossly normal bilaterally, moist oral mucous membranes and oropharynx normal Head and Scalp: normocephalic Neck Neck Narrative: Trachea midline, no thyromegaly or nodules noted with palpation Resp normal respiratory effort, no retractions, no use of accessory muscles and No clear to auscultation bilaterally Resp Narrative: Clear to auscultation bilaterally Auscultation: crackles; Negative for rales, rhonchi or wheezes Cardio regular rate, regular rhythm, S1 normal heart sound, S2 normal heart sound, no rub, no clicks and no JVD Cardio Narrative: 2 out of 6 systolic murmur, S4 gallop GI normal to inspection, nondistended, normoactive bowel sounds, soft to palpation, non-tender and non-distended Extremity normal to inspection, full ROM and no clubbing, cyanosis or edema Neuro oriented x3, CN's II-XII intact bilaterally and moves all extremities Neuro Narrative: Speech is somewhat childlike Sensorium / Orientation: awake, alert, oriented to person, oriented to place and oriented to time Psych Psych Narrative: Calm but intermittently tearful when we talked about her parents and her brother who . Denies suicidal ideation and states she has no intent to ever harm herself Assessment & Plan Assessment/Plan (1) Hypoxia: (2) Hypertensive emergency: (3) Hyperlipidemia: (4) Chronic kidney disease: PLAN: Acute hypoxic respiratory insufficiency -Patient is now on room air with an SPO2 of 94% at rest and 90% with exertion -I suspect this is related to flash pulmonary edema related to her untreated hypertension plus/minus right middle lobe pneumonia -Continue home Demadex -Blood pressure has improved -Strep pneumo and Legionella urine antigen are negative -CT chest showed patchy bilateral groundglass changes which I suspect are related to pulmonary edema -MRSA PCR negative -Covid negative -We will continue azithromycin and ceftriaxone for now and likely discharge home with a 3-day course of Levaquin tomorrow -Pulmonary toilet Headache -Patient reports that she has had this since admission but denied any issue yesterday. -Given her extreme hypertension will check CT of the head to rule out any bleeding -Tylenol as needed Hypertensive emergency -Patient has had admissions for hypertensive emergency in the past -Patient reports compliance although her sister reports that she finds her pills on the floor in her house -Will arrange home health care at discharge -Blood pressure is much improved with patient taking her medication today -Continue home Demadex -Continue Coreg 12.5 daily -Continue hydralazine 100 mg 3 times daily -Goal blood pressure for today is under 130 systolic and will drop further in the next 24 hours -Cardiac enzymes negative x3 -EKG shows sinus rhythm with first-degree heart block and a heart rate of 86 CKD stage IV -Serum creatinine is at baseline with slight bump overnight--> but still within baseline -BMP in a.m. -Avoid nephrotoxins -Baseline creatinine is 2.2-2.5 -We will recommend nephrology follow-up after discharge CAD/HTN hyperlipidemia/history of stroke(left MCA) -CAD with stent to LAD in 2017 -Continue statin -Continue apixaban DM-2 -Continue home insulin regimen GERD -Continue Protonix Depression/anxiety -Continue BuSpar Obesity -BMI is 39.1 -Complicates overall medical care, outcomes, and prognosis -Recommend weight loss DVT prophylaxis -Continue NOAC CODE STATUS -Full code
--- NOTE | 2020-09-21 14:25 | CT_ITS ---
STUDY: CT BRAIN WITHOUT CONTRAST REASON FOR EXAM: Female, 54 years old. Headache with HTN RADIATION DOSAGE (If Supplied By Facility): CTDIvol = ( 44.99 ) mGy, DLP = ( 745.49 ) mGycm TECHNIQUE: Transaxial CT imaging of the brain was performed without administration of intravenous contrast material. Individualized dose optimization techniques were used for this CT. COMPARISON: 11/27/2019 FINDINGS: Again noted encephalomalacia, distribution of the left middle cerebral artery due to old infarction there is ipsilateral dilatation of the left lateral ventricle and the left occipital horn. No obvious acute infarction seen. No epidural, subdural or intracerebral hematoma. No midline shift. The skull base and cranial vault are intact. There is hyperostosis frontalis interna. The sinuses, orbits and mastoid air cells are unremarkable. CT/Brain/Head without Contrast IMPRESSION: Stable encephalomalacia, distribution left middle cerebral artery without change since the study of 11/26/2021., Electronically Signed: Pillo Hernandez, at 14:41 EDT Tel , Service support ,
[2020-09-21 16:35] LABS: Bedside Glucose 195 mg/dL (70-110)
[2020-09-21] MEDS: Gabapentin 100 MG Capsule PO ×2 (17:19→20:09)
[2020-09-21] MEDS: Atorvastatin Calcium 80 MG Tablet PO (20:10)
[2020-09-21 21:30] LABS: Bedside Glucose 136 mg/dL (70-110)
[2020-09-22] VITALS (17 sets, daily range): BP systolic 119–158; BP diastolic 58–86; PULSE 61–105; RESP 16–20; TEMP 36.7–37; O2SAT 90–95
[2020-09-22 06:19] LABS: Absolute Neutrophil Count 9.5 X10^3/uL (2.0-7.7); Basophil# 0.02 X10^3/uL; Basophil% 0.2 % (0-1); Eosinophil# 0.32 X10^3/uL; Eosinophils% 2.7 % (0-5); Hematocrit 30.6 % (37-47); Hemoglobin 9.8 g/dL (12.0-15.0); Lymphocyte % 6.7 % (19-41); Mean Corpuscular Hgb 28.5 pg (27.0-32.0); Mean Platelet Vol. 12.2 fl (6.2-12.0); Monocyte# 1.21 X10^3/uL; Monocyte% 10.1 % (0-10); NRBC Flagged by Analyzer 0 % (0-5); Neutrophil % 79.6 % (47-70); Platelet Count 155 K/mm3 (150-450); RBC Distribution Width CV 13.5 % (11.6-14.6); RBC Distribution Width SD 43.9 fl (35.1-43.9); Red Blood Count 3.44 M/mm3 (4.2-5.4); White Blood Count 11.9 K/mm3 (4.4-11.0)
[2020-09-22] MEDS: hydrALAZINE 50 MG Tablet 100 MG PO ×3 (06:31→20:18)
[2020-09-22] MEDS: Gabapentin 100 MG Capsule PO ×3 (06:31→20:19)
[2020-09-22 06:46] LABS: Bedside Glucose 144 mg/dL (70-110)
[2020-09-22 07:01] LABS: Anion Gap 10 (5-15); BUN 72 mg/dL (7-18); BUN/Creat Ratio 24.2 RATIO (10-20); Calcium,Total 7.5 mg/dL (8.5-10.1); Chloride 102 mmol/L (98-107); Creatinine, Serum 2.97 mg/dL (0.55-1.02); EST Glomerular Filtration Rate 17 mL/min (>60); Est Glom Filt Rate - Afr Amer 21 mL/min (>60); Estimated Creatinine Clearance 17.91 ml/min; Glucose 151 mg/dL (74-106); Potassium 3.5 mmol/L (3.5-5.1); Sodium Level 137 mmol/L (136-145)
[2020-09-22] MEDS: Ipratropium/Albuterol Sulfate 3 ML AMPUL.NEB INHALATION ×4 (07:30→21:13)
[2020-09-22] MEDS: guaiFENesin 10 ML UDC (200MG/10ML) 20 ML PO (08:43)
[2020-09-22] MEDS: Acetaminophen 325 MG Tablet 650 MG PO (08:44)
[2020-09-22] MEDS: Aspirin 81 MG TAB.CHEW PO (08:56)
[2020-09-22] MEDS: Carvedilol 12.5 MG Tablet PO ×2 (08:56→20:18)
[2020-09-22] MEDS: Torsemide 100 MG Tablet 50 MG PO (08:57)
[2020-09-22] MEDS: APIXABAN 5 MG TABLET PO ×2 (08:57→20:19)
[2020-09-22] MEDS: Escitalopram Oxalate 10 MG Tablet 5 MG PO (08:59)
[2020-09-22] MEDS: Ceftriaxone 1 GM/50 ML BAG IV (09:49)
[2020-09-22 12:05] LABS: Bedside Glucose 238 mg/dL (70-110)
--- NOTE | 2020-09-22 12:18 | PN.HOSP_ITS ---
Subjective Subjective Patient continued to complain of a headache despite Tylenol. She states it is on the left side and in the frontal area of her head. She is a poor historian so is difficult to get a history but it sounds like her pain has never completely resolved though she states that she was able to sleep after taking the Tylenol last night. She denies any shortness of breath but remains on oxygen 2 L. Objective Data Objective Data Vital Signs: Vital Signs Temp Pulse Resp BP Pulse Ox 98.6 F 67 16 158/76 H 95 09/22/20 10:00 09/22/20 11:11 09/22/20 11:11 09/22/20 10:00 09/22/20 10:00 Oxygen Flow Rate (L/min) 2 Oxygen Delivery Method Nasal Cannula Weight: 104.5 kg Body Mass Index (BMI) 41.1 Intake & Output: Intake and Output for Last 24 Hours 09/20/20 09/21/20 09/22/20 23:59 23:59 23:59 Intake Total 746.5 / 746.5 1605 / 1845 360 / 360 Output Total 300 / 300 2 / 2 Balance 446.5 / 446.5 1605 / 1845 358 / 358 Lab / Micro Data Result Diagrams: 09/22/20 05:56 09/22/20 05:56 Labs: Laboratory Results - last 24 hr 09/21/20 09/21/20 09/21/20 12:49 16:28 20:09 WBC RBC Hgb Hct MCV MCH MCHC RDW Std Deviation RDW Coeff of [place] Plt Count MPV Immature Gran % (Auto) Neut % (Auto) Lymph % (Auto) [place] % (Auto) Eos % (Auto) Baso % (Auto) Absolute Neuts (auto) Absolute Lymphs (auto) Nucleated RBC % Sodium Potassium Chloride Carbon Dioxide Anion Gap BUN Creatinine Estim Creat Clear Calc Est GFR (MDRD) Af Amer Est GFR (MDRD) Non-Af BUN/Creatinine Ratio Glucose Calcium POC Glucose 193 H 195 H 136 H 09/22/20 09/22/20 09/22/20 05:56 05:56 06:31 WBC 11.9 H RBC 3.44 L Hgb 9.8 L Hct 30.6 L MCV 89.0 MCH 28.5 MCHC 32.0 RDW Std Deviation 43.9 RDW Coeff of [place] 13.5 Plt Count 155 MPV 12.2 H Immature Gran % (Auto) 0.700 Neut % (Auto) 79.6 H Lymph % (Auto) 6.7 L [place] % (Auto) 10.1 H Eos % (Auto) 2.7 Baso % (Auto) 0.2 Absolute Neuts (auto) 9.5 H Absolute Lymphs (auto) 0.80 L Nucleated RBC % 0 Sodium 137 Potassium 3.5 Chloride 102 Carbon Dioxide 25.0 Anion Gap 10 BUN 72 H Creatinine 2.97 H Estim Creat Clear Calc 17.91 Est GFR (MDRD) Af Amer 21 L Est GFR (MDRD) Non-Af 17 L BUN/Creatinine Ratio 24.2 H Glucose 151 H Calcium 7.5 L POC Glucose 144 H 09/22/20 11:59 WBC RBC Hgb Hct MCV MCH MCHC RDW Std Deviation RDW Coeff of [place] Plt Count MPV Immature Gran % (Auto) Neut % (Auto) Lymph % (Auto) [place] % (Auto) Eos % (Auto) Baso % (Auto) Absolute Neuts (auto) Absolute Lymphs (auto) Nucleated RBC % Sodium Potassium Chloride Carbon Dioxide Anion Gap BUN Creatinine Estim Creat Clear Calc Est GFR (MDRD) Af Amer Est GFR (MDRD) Non-Af BUN/Creatinine Ratio Glucose Calcium POC Glucose 238 H Micro: Microbiology 09/21/20 04:40 Urine, Clean Catch Streptococcus pneumoniae Antigen (M - Final 09/20/20 20:26 Urine, Clean Catch Legionella Antigen - Final 09/20/20 14:16 Mucosa - Nasopharyngeal Respiratory Panel (PCR) - Final 09/20/20 15:20 Mucosa - Nose SARS-CoV-2 Antigen (Rapid) - Final Radiography Diagnostic Testing: Radiology Impression Brain CT 09/21/20 14:25 IMPRESSION: Stable encephalomalacia, distribution left middle cerebral artery without change since the study of 11/26/2021., Electronically Signed: Pillo Henrandez, at 14:41 EDT Tel , Service support , Physical Exam Const alert, oriented x3, no apparent distress, average body habitus, healthy appearing and well nourished Constitutional Narrative: Obese middle-aged white female who appears older than stated age, sitting up in chair watching television, appears comfortable, nontoxic appearing, on 2 L nasal cannula, room is damned patient states this is secondary to her headache General Appearance: cooperative HEENT normocephalic, head/scalp atraumatic, hearing grossly normal bilaterally, moist oral mucous membranes and oropharynx normal Head and Scalp: normocephalic Neck Neck Narrative: Trachea midline Resp normal respiratory effort, no retractions, no use of accessory muscles and No clear to auscultation bilaterally Resp Narrative: Clear to auscultation bilaterally Auscultation: crackles; Negative for rales, rhonchi or wheezes Cardio regular rate, regular rhythm, S1 normal heart sound, S2 normal heart sound, no rub, no clicks and no JVD Cardio Narrative: 2 out of 6 systolic murmur, S4 gallop GI normal to inspection, nondistended, normoactive bowel sounds, soft to palpation, non-tender and non-distended Extremity normal to inspection, full ROM and no clubbing, cyanosis or edema Neuro oriented x3, CN's II-XII intact bilaterally and moves all extremities Sensorium / Orientation: awake, alert, oriented to person, oriented to place and oriented to time Psych Psych Narrative: Calm, affect was a bit more flat today but patient appeared not as depressed Assessment & Plan Assessment/Plan (1) Hypoxia: (2) Hypertensive emergency: (3) Hyperlipidemia: (4) Chronic kidney disease: (5) Headache: (6) CARYN (acute kidney injury): PLAN: Acute hypoxic respiratory insufficiency -Patient now back on 2 L nasal cannula with an SPO2 of 92 to 95% -I suspect her initial hypoxia was related to flash pulmonary edema related to her untreated hypertension plus/minus right middle lobe pneumonia -Unclear with regards to ongoing hypoxia -Hold home Demadex with CARYN on CKD -Blood pressure has improved -Strep pneumo and Legionella urine antigen are negative -CT chest showed patchy bilateral groundglass changes which I suspect are related to pulmonary edema -MRSA PCR negative -Covid negative -We will convert to p.o. Levaquin today -Repeat chest x-ray in a.m. -Pulmonary toilet with Acapella and incentive spirometry -Patient remains hypoxic in the next 24 hours we will consider pulmonary consult Headache -Patient reports that this has been fairly continuous from what I could gather since yesterday -CT of head shows no acute findings -Tylenol has not been effective -We will give the equivalent of a one-time dose of Excedrin Hypertensive emergency -Patient has had admissions for hypertensive emergency in the past -Patient reports compliance although her sister reports that she finds her pills on the floor in her house -Will arrange home health care at discharge -Blood pressure is much improved with patient taking her medication today -Hold Demadex today with increased serum creatinine -Continue Coreg 12.5 daily -Continue hydralazine 100 mg 3 times daily -Start amlodipine 5 mg daily -Goal blood pressure for today is under 130 systolic -Cardiac enzymes negative x3 -EKG shows sinus rhythm with first-degree heart block and a heart rate of 86 -Check echocardiogram CKD stage IV -Serum creatinine up slightly -Hold Demadex -Avoid nephrotoxins -Baseline creatinine is 2.2-2.5 -We will recommend nephrology follow-up after discharge CAD/HTN hyperlipidemia/history of stroke(left MCA) -CAD with stent to LAD in 2017 -Continue statin -Continue apixaban DM-2 -Continue home insulin regimen GERD -Continue Protonix Depression/anxiety -Continue BuSpar Obesity -BMI is 39.1 -Complicates overall medical care, outcomes, and prognosis -Recommend weight loss DVT prophylaxis -Continue NOAC CODE STATUS -Full code
--- NOTE | 2020-09-22 12:21 | ECHOD_ITS ---
Reason For Study: Dyspnea/SOB Procedure This was a 2D Doppler, Color Flow transthoracic echocardiogram. Exam performed portable in patient room. Left Ventricle Normal LV size. Moderate concentric left ventricular hypertrophy. Left ventricular systolic function is normal. The estimated ejection fraction is 60 %. No regional wall motion abnormalities noted. Right Ventricle Normal RV size. Normal systolic function. Atria Normal left atrium. Normal right atrium. Tricuspid Valve Normal tricuspid valve. Mild (1+) tricuspid valve insufficiency. Pulmonary artery systolic pressure is 34 mmHg. Aortic Valve Trisinus/trileaflet aortic valve. Pulmonic Valve Normal pulmonic valve. Great Vessels Normal aortic root. The pulmonary artery is normal size. Normal inferior vena cava. Pericardium/Pleural No pericardial effusion. MMode/2D Measurements & Calculations LVIDd: 4.7 cm IVSd: 1.3 cm Ao root diam: 3.4 cm LVIDs: 2.9 cm LVPWd: 1.5 cm RVDd: 3.3 cm FS: 38.6 % LAV(MOD-bp): 40.5 ml LVAd ap4: 30.8 cm2 SV(MOD-sp4): 66.1 ml LAV(MOD-bp) Indexed: 20.9 ml/m2 LVLd ap4: 8.4 cm LAV(MOD-sp2): 41.5 ml EDV(MOD-sp4): 95.0 ml LAV(MOD-sp4): 38.4 ml EDV(sp4-el): 95.7 ml LVAs ap4: 14.5 cm2 LVLs ap4: 6.2 cm ESV(MOD-sp4): 28.9 ml ESV(sp4-el): 28.9 ml EF(MOD-sp4): 69.5 % EF(sp4-el): 69.8 % SV(sp4-el): 66.8 ml LA dimension(2D): 4.1 cm LA A4 area: 15.4 cm2 RA A4 area: 12.8 cm2 Doppler Measurements & Calculations MV E max redd: 143.4 cm/sec Lat Peak E' Redd: 7.7 cm/sec Med Peak E' Redd: 5.8 cm/sec MV A max redd: 115.1 cm/sec E/E' lat: 18.7 E/E' med: 24.7 MV E/A: 1.2 Ao V2 max: 189.5 cm/sec LV V1 max: 134.0 cm/sec PA V2 max: 126.2 cm/sec Ao max P.4 mmHg LV V1 max P.2 mmHg Ao V2 mean: 128.4 cm/sec Ao mean P.4 mmHg Ao V2 VTI: 48.6 cm TR max redd: 270.1 cm/sec TR max P.2 mmHg ECHO/Echo Complete Interpretation Summary Normal LV size. Moderate concentric left ventricular hypertrophy. Left ventricular systolic function is normal. The estimated ejection fraction is 60 %. Pulmonary artery systolic pressure is 34 mmHg. Ordering Physician: Sondra Dumont Referring Physician: Page Sutton Performed By: Marian Srivastava, LAYNE, RVT
[2020-09-22] MEDS: Allopurinol 100 MG Tablet PO (12:28)
[2020-09-22] MEDS: Aspirin 81 MG TAB.CHEW 243 MG PO (12:31)
[2020-09-22] MEDS: Acetaminophen 325 MG Tablet PO (12:32)
[2020-09-22] MEDS: Insulin Lispro 100 UNIT/ML INSULN.PEN SC ×3 (12:33→16:54)
[2020-09-22] MEDS: Caffeine 200 MG Tablet PO (12:37)
[2020-09-22 16:15] LABS: Bedside Glucose 121 mg/dL (70-110)
[2020-09-22] MEDS: Atorvastatin Calcium 80 MG Tablet PO (20:19)
[2020-09-22] MEDS: Nystatin Powder 15gm Bottle 1 APPLIC TOPICAL (20:19)
--- NOTE | 2020-09-22 20:30 | NURSING ---
Pt walked the whole unit with min assistance
[2020-09-22 20:31] LABS: Bedside Glucose 103 mg/dL (70-110)
[2020-09-23] VITALS (15 sets, daily range): BP systolic 145–168; BP diastolic 51–81; PULSE 63–78; RESP 16–20; TEMP 36.6–36.9; O2SAT 93–96
--- NOTE | 2020-09-23 05:23 | RAD_ITS ---
STUDY: X-RAY CHEST REASON FOR EXAM: Female, 54 years old. Shortness of breath TECHNIQUE: AP portable upright chest COMPARISON: 09/20/2020 x-ray chest FINDINGS: No apparent infiltrate. There is mild blunting of the left cost phrenic angle. This could be a minimal left effusion or mild left lung base atelectasis. There is no apparent effusion on the right. Bilaterally there is no pneumothorax. Stable borderline/mild cardiac MADELEY. Unremarkable mediastinal silhouette, kristi and pleural margins. No acute osseous or upper abdominal process. RAD/Chest 1 View IMPRESSION: Left lung base, minimal effusion versus atelectasis. The lungs are otherwise clear. No specific evidence of edema or pneumonia. Electronically Signed: Hermes Day MD at 16:12 EDT Tel , Service support ,
[2020-09-23 05:49] LABS: Absolute Lymphocyte Count 1.04 X10^3/uL (0.83-4.51); Absolute Neutrophil Count 6.4 X10^3/uL (2.0-7.7); Basophil# 0.03 X10^3/uL; Basophil% 0.3 % (0-1); Eosinophil# 0.38 X10^3/uL; Eosinophils% 4.4 % (0-5); Hematocrit 30.3 % (37-47); Lymphocyte # 1.04 X10^3/ul (0.83-4.51); Mean Corpuscular Hgb 28.9 pg (27.0-32.0); Mean Corpuscular Volume 87.6 fL (81-99); Mean Platelet Vol. 12.5 fl (6.2-12.0); Monocyte# 0.82 X10^3/uL; Monocyte% 9.4 % (0-10); NRBC Flagged by Analyzer 0 % (0-5); Neutrophil # 6.38 X10^3/uL (2.7-7.7); Neutrophil % 73.3 % (47-70); Platelet Count 169 K/mm3 (150-450); RBC Distribution Width CV 13.5 % (11.6-14.6); RBC Distribution Width SD 43.1 fl (35.1-43.9); Red Blood Count 3.46 M/mm3 (4.2-5.4); White Blood Count 8.7 K/mm3 (4.4-11.0)
[2020-09-23] MEDS: Gabapentin 100 MG Capsule PO ×3 (05:49→20:37)
[2020-09-23] MEDS: levoFLOXacin 750 MG Tablet PO (05:49)
[2020-09-23] MEDS: hydrALAZINE 50 MG Tablet 100 MG PO ×3 (05:49→20:37)
--- NOTE | 2020-09-23 05:56 | NURSING ---
Pt c/o chest pain that goes into back and left arm. nitro given
[2020-09-23 06:17] LABS: Anion Gap 10 (5-15); BUN 76 mg/dL (7-18); BUN/Creat Ratio 25.7 RATIO (10-20); Calcium,Total 7.5 mg/dL (8.5-10.1); Chloride 103 mmol/L (98-107); Creatinine, Serum 2.96 mg/dL (0.55-1.02); EST Glomerular Filtration Rate 18 mL/min (>60); Est Glom Filt Rate - Afr Amer 21 mL/min (>60); Estimated Creatinine Clearance 17.97 ml/min; Glucose 125 mg/dL (74-106); Potassium 3.4 mmol/L (3.5-5.1); Sodium Level 138 mmol/L (136-145)
[2020-09-23] MEDS: Ipratropium/Albuterol Sulfate 3 ML AMPUL.NEB INHALATION ×3 (07:08→20:15)
[2020-09-23 07:45] LABS: Bedside Glucose 126 mg/dL (70-110)
[2020-09-23] MEDS: 0.9% Saline Lock 10 ML Syringe IV (08:21)
[2020-09-23] MEDS: Potassium Chloride Oral Tablet 20 MEQ 40 MEQ PO (08:21)
[2020-09-23] MEDS: 0.9% Normal Saline 1,000 ML 75 ML IV (08:21)
[2020-09-23] MEDS: Carvedilol 12.5 MG Tablet PO ×2 (08:22→20:37)
[2020-09-23] MEDS: APIXABAN 5 MG TABLET PO ×2 (08:22→20:37)
[2020-09-23] MEDS: Escitalopram Oxalate 10 MG Tablet 5 MG PO (08:23)
[2020-09-23] MEDS: Nystatin Powder 15gm Bottle 1 APPLIC TOPICAL ×2 (08:23→20:38)
[2020-09-23] MEDS: Allopurinol 100 MG Tablet PO (08:24)
[2020-09-23] MEDS: amLODIPine 10 MG Tablet PO (08:29)
--- NOTE | 2020-09-23 08:59 | NURSING ---
Spoke with patient's sister June. patient has been crying and not wanting to discuss the issues going on, asked for phone to be unplugged. Sister updated with patient's stable status. Sister states she cannot come and live with her. Says she does not know where she will live, but they do not get along so she cannot stay with her. Message left for case mgmt)
[2020-09-23] MEDS: Insulin Lispro 100 UNIT/ML INSULN.PEN SC ×5 (11:28→20:39)
--- NOTE | 2020-09-23 11:49 | PCM.PN.HOSP ---
Subjective Subjective Patient reports her headache is resolved with the Excedrin given yesterday. No shortness of breath. Now on room air. Starts crying spontaneously during my evaluation of her and tells me I am okay and I cannot tell you what is wrong. Upon discussion with nursing staff there has been significant drama between she and her sister. Sister states that she will not let her come back to live at her house and will call the police if she shows up. Objective Data Objective Data Vital Signs: Vital Signs Temp Pulse Resp BP Pulse Ox 98.4 F 66 16 167/81 H 95 09/23/20 09:30 09/23/20 11:21 09/23/20 11:21 09/23/20 09:30 09/23/20 09:30 Oxygen Flow Rate (L/min) 2 Oxygen Delivery Method Room Air Weight: 103.3 kg Body Mass Index (BMI) 41.1 Intake & Output: Intake and Output for Last 24 Hours 09/21/20 09/22/20 09/23/20 23:59 23:59 23:59 Intake Total 1605 / 1845 2440 / 3240 1520 / 1520 Output Total 2 / 2 Balance 1605 / 1845 2438 / 3238 1520 / 1520 Lab / Micro Data Result Diagrams: 09/23/20 05:02 09/23/20 05:02 Labs: Laboratory Results - last 24 hr 09/22/20 09/22/20 09/22/20 11:59 16:08 20:16 WBC RBC Hgb Hct MCV MCH MCHC RDW Std Deviation RDW Coeff of [place] Plt Count MPV Immature Gran % (Auto) Neut % (Auto) Lymph % (Auto) [place] % (Auto) Eos % (Auto) Baso % (Auto) Absolute Neuts (auto) Absolute Lymphs (auto) Nucleated RBC % Sodium Potassium Chloride Carbon Dioxide Anion Gap BUN Creatinine Estim Creat Clear Calc Est GFR (MDRD) Af Amer Est GFR (MDRD) Non-Af BUN/Creatinine Ratio Glucose Calcium POC Glucose 238 H 121 H 103 09/23/20 09/23/20 09/23/20 05:02 05:02 06:39 WBC 8.7 RBC 3.46 L Hgb 10.0 L Hct 30.3 L MCV 87.6 MCH 28.9 MCHC 33.0 RDW Std Deviation 43.1 RDW Coeff of [place] 13.5 Plt Count 169 MPV 12.5 H Immature Gran % (Auto) 0.600 Neut % (Auto) 73.3 H Lymph % (Auto) 12.0 L [place] % (Auto) 9.4 Eos % (Auto) 4.4 Baso % (Auto) 0.3 Absolute Neuts (auto) 6.4 Absolute Lymphs (auto) 1.04 Nucleated RBC % 0 Sodium 138 Potassium 3.4 L Chloride 103 Carbon Dioxide 25.0 Anion Gap 10 BUN 76 H Creatinine 2.96 H Estim Creat Clear Calc 17.97 Est GFR (MDRD) Af Amer 21 L Est GFR (MDRD) Non-Af 18 L BUN/Creatinine Ratio 25.7 H Glucose 125 H Calcium 7.5 L POC Glucose 126 H Micro: Microbiology 09/21/20 04:40 Urine, Clean Catch Streptococcus pneumoniae Antigen (M - Final 09/20/20 20:26 Urine, Clean Catch Legionella Antigen - Final 09/20/20 14:16 Mucosa - Nasopharyngeal Respiratory Panel (PCR) - Final 09/20/20 15:20 Mucosa - Nose SARS-CoV-2 Antigen (Rapid) - Final Physical Exam Const alert, oriented x3, no apparent distress, average body habitus, healthy appearing and well nourished Constitutional Narrative: Obese middle-aged white female who appears older than stated age, sitting up in bed, watching television, becomes tearful during my exam and conversation with her General Appearance: cooperative HEENT normocephalic, head/scalp atraumatic and hearing grossly normal bilaterally Head and Scalp: normocephalic Resp normal respiratory effort, no retractions, no use of accessory muscles and No clear to auscultation bilaterally Resp Narrative: Clear to auscultation bilaterally Auscultation: crackles; Negative for rales, rhonchi or wheezes Cardio regular rate, regular rhythm, S1 normal heart sound, S2 normal heart sound, no rub, no gallops, no clicks and no JVD Cardio Narrative: 2 out of 6 systolic murmur GI normal to inspection, nondistended, normoactive bowel sounds, soft to palpation, non-tender and non-distended Extremity normal to inspection, full ROM and no clubbing, cyanosis or edema Peripheral Pulses: Yes pulses 2+ throughout Skin no rashes or lesions noted, no wounds, skin turgor normal, no jaundice, no petechiae and no mottling Skin Narrative: Pale skin Neuro oriented x3, CN's II-XII intact bilaterally and moves all extremities Neuro Narrative: Sensorium / Orientation: awake, alert, oriented to person, oriented to place and oriented to time Psych Psych Narrative: Severely labile Assessment & Plan Assessment/Plan (1) Hypoxia: (2) Hypertensive emergency: (3) Hyperlipidemia: (4) Chronic kidney disease: (5) Headache: (6) CARYN (acute kidney injury): PLAN: Acute hypoxic respiratory insufficiency -Resolved--> patient is now on room air with an SPO2 of 93 to 96% -I suspect her initial hypoxia was related to flash pulmonary edema related to her untreated hypertension plus/minus right middle lobe pneumonia -Unclear with regards to ongoing hypoxia -Hold home Demadex with CARYN on CKD -Blood pressure has improved -Strep pneumo and Legionella urine antigen are negative -CT chest showed patchy bilateral groundglass changes which I suspect are related to pulmonary edema -MRSA PCR negative -Covid negative -Day 4 of 7 of antibiotics -Chest x-ray looks improved with regards to volume status and no acute processes -Pulmonary toilet with Acapella and incentive spirometry Headache -Resolved Hypertensive emergency -Patient has had admissions for hypertensive emergency in the past -Patient reports compliance although her sister reports that she finds her pills on the floor in her house -Blood pressures are better but still not in goal range -Continue to hold Demadex today with increased serum creatinine -Continue Coreg 12.5 daily -Continue hydralazine 100 mg 3 times daily -Increase amlodipine to 10 mg -Goal blood pressure for today is under 130 systolic -Cardiac enzymes negative x3 -EKG shows sinus rhythm with first-degree heart block and a heart rate of 86 -Check echocardiogram CKD stage IV -Serum creatinine up slightly again today -We will give 1 L of IV fluids -Continue to hold Demadex for now -Avoid nephrotoxins -Baseline creatinine is 2.2-2.5 -Would recommend nephrology follow-up after discharge -No acute needs CAD/HTN hyperlipidemia/history of stroke(left MCA) -CAD with stent to LAD in 2017 -Continue statin -Continue apixaban DM-2 -Continue home insulin regimen GERD -Continue Protonix Depression/anxiety -Continue BuSpar Obesity -BMI is 39.1 -Complicates overall medical care, outcomes, and prognosis -Recommend weight loss DVT prophylaxis -Continue NOAC CODE STATUS -Full code Disposition -I was hoping to discharge the patient today but there is been significant social issues with regards to his discharge plan. Her sister states she is no longer welcome in her house and if she shows up she will call the police. The patient was very tearful but refused to tell me any information with regards to why she was upset. We will have social work evaluate again tomorrow. [place] benefit from [facility] [place] [facility] [place] if able. Charges/Coding Visit Charges Inpatient E&M: 36238 Subs Hosp L2
[2020-09-23 11:51] LABS: Bedside Glucose 160 mg/dL (70-110)
[2020-09-23 17:15] LABS: Bedside Glucose 166 mg/dL (70-110)
[2020-09-23] MEDS: Atorvastatin Calcium 80 MG Tablet PO (20:37)
[2020-09-23] MEDS: MELATONIN 10 MG TABLET 5 MG PO (20:43)
[2020-09-23 21:10] LABS: Bedside Glucose 193 mg/dL (70-110)
[2020-09-24] VITALS (8 sets, daily range): BP systolic 138–155; BP diastolic 63–86; PULSE 64–88; RESP 17–18; TEMP 36.3–36.6; O2SAT 90–97
[2020-09-24] MEDS: Insulin Lispro 100 UNIT/ML INSULN.PEN SC ×2 (06:40→12:57)
[2020-09-24] MEDS: hydrALAZINE 50 MG Tablet 100 MG PO ×2 (06:41→13:51)
[2020-09-24] MEDS: Gabapentin 100 MG Capsule PO ×2 (06:42→13:51)
[2020-09-24 06:47] LABS: Anion Gap 9 (5-15); BUN 82 mg/dL (7-18); BUN/Creat Ratio 28.8 RATIO (10-20); Calcium,Total 7.4 mg/dL (8.5-10.1); Chloride 107 mmol/L (98-107); Creatinine, Serum 2.85 mg/dL (0.55-1.02); EST Glomerular Filtration Rate 18 mL/min (>60); Est Glom Filt Rate - Afr Amer 22 mL/min (>60); Estimated Creatinine Clearance 18.67 ml/min; Glucose 157 mg/dL (74-106); Potassium 4.1 mmol/L (3.5-5.1); Sodium Level 139 mmol/L (136-145)
[2020-09-24 06:50] LABS: Bedside Glucose 151 mg/dL (70-110)
[2020-09-24] MEDS: Ipratropium/Albuterol Sulfate 3 ML AMPUL.NEB INHALATION ×2 (07:11→10:39)
--- NOTE | 2020-09-24 09:03 | CASEMGMT ---
This RN TATUM received a voicemail from pt's nurse, Rosalinda, yesterday stating that there is 'family drama' and pt's sister is now refusing to take her back home. [facility] Abimael alex and TATUM to follow. SStjason ALEJO CM
--- NOTE | 2020-09-24 09:47 | CASEMGMT ---
Patient is very emotional as the physician let her know that her sister is not willing to take her back as she can no longer care for her. Patient is now perseverating on talking with her sister. RN called and talked with patient's sister. She expressed all of her frustrations with caring for patient. SW attempted to call patient's sister, but SW had to leave a message. SW will talk with her and patient to see what can be worked out. Patti Law [employer] TEAM LEADER HUA
[2020-09-24] MEDS: APIXABAN 5 MG TABLET PO (10:22)
[2020-09-24] MEDS: amLODIPine 10 MG Tablet PO (10:22)
[2020-09-24] MEDS: Aspirin 81 MG TAB.CHEW PO (10:23)
[2020-09-24] MEDS: Carvedilol 12.5 MG Tablet PO (10:23)
[2020-09-24] MEDS: Nystatin Powder 15gm Bottle 1 APPLIC TOPICAL (10:23)
[2020-09-24] MEDS: Allopurinol 100 MG Tablet PO (10:24)
[2020-09-24] MEDS: Escitalopram Oxalate 10 MG Tablet 5 MG PO (10:26)
--- NOTE | 2020-09-24 10:32 | PCM.DC ---
Discharge Instructions Diet Discharge Diet: No restrictions Activity Discharge Activity: Return to Normal Activity Follow Up Care Please Follow Up With: Primary care provider When: Within the next two weeks. Test Results: Test results from this visit will be discussed in further detail at your follow-up appointment, if applicable. Discharge Plan Admission Admit Date/Time: 09/20/20 12:43 Primary Reason for Your Visit: Shortness of breath/Pneumonia Attending Provider: Eboni Polanco Primary Care Provider: Page Sutton [employer] LAW CLERK Discharge Orders/Prescriptions Prescriptions: New levofloxacin 500 mg tablet 500 mg PO DAILY Qty: 2 RF: 0 Continued torsemide 100 mg tablet 50 mg PO BID RF: 0 melatonin 5 mg tablet 5 mg PO HS PRN (Reason: Sleep) RF: 0 aspirin 81 MG tablet,chewable 81 mg PO DAILY@0800 RF: 0 atorvastatin 80 MG tablet 80 mg PO QHS RF: 0 apixaban 5 MG tablet 5 mg PO BID RF: 0 insulin glargine U-300 conc 300 unit/mL (1.5 mL) insulin pen 18 unit SC BREAKFAST RF: 0 amlodipine 10 MG tablet 10 mg PO DAILY Qty: 30 RF: 0 carvedilol 12.5 mg tablet 12.5 mg PO BID RF: 0 allopurinol 100 mg tablet 100 mg PO DAILY RF: 0 hydralazine 100 mg tablet 100 mg PO TID RF: 0 gabapentin 100 mg capsule 100 mg PO TID RF: 0 insulin aspart U-100 [Novolog Flexpen U-100 Insulin] 100 unit/mL (3 mL) insulin pen 5 unit SUBCUT LUNCH RF: 0 insulin aspart U-100 [Novolog Flexpen U-100 Insulin] 100 unit/mL (3 mL) insulin pen 5 unit SUBCUT DINNER RF: 0 escitalopram oxalate [Lexapro] 5 mg Tablet 5 mg PO DAILY RF: 0 Referrals / Follow Up: [facility]GROUP OF [facility]YSICIANS] - 11/15/20 2:00 pm (Dr Allegra Soto October at 2p arrive 30 minutes early for paperwork. [facility] [place] [id number] [place] [address] ) Salomón Michael MD [COURTESY STAFF PHYSICIAN] - Within 2 Weeks Adam Nicole MD [NON-STAFF] - 09/26/20 1:15 pm Disposition Disposition (needs filled in before D/C Order can be placed): Home, Self Care
--- NOTE | 2020-09-24 11:44 | CASEMGMT ---
SW received a return call from patient's sister June. She expressed that she is very stressed out with patient. She asked about adult daycare. She said patient likes [facility] in [place]. She was wondering how to get her into daycare. She also would like patient to see a counselor. She prefers the [place] office. She has never heard of waiver program. SW explained as long as she qualifies they would try and get aides in the home to help her. She was in agreement with this. SW spoke with patient and she said she will go to counseling. She is ok with SW scheduling an appt for her. RAN called [facility] and scheduled an appt for November 15 at 2p at the [place] office. RAN called [facility] and a message was left with the nurse to call patient's sister to see if patient is eligible. RAN also completed waiver application and faxed to [employer]. Patient will also have [facility] at discharge. Social Work was added to the home health order. RAN also emailed [facility] RAN and let her know what RAN has already done. Plan: d/c home with sister. Appt at [facility] in [place] for November 15 at 2p. Patti SEQUEIRA
[2020-09-24 13:00] LABS: Bedside Glucose 150 mg/dL (70-110)
--- NOTE | 2020-09-24 13:11 | DS.PCM_ITS ---
Documented by User: Pedro Luis LUKE 09/24/20 13:25 Providers Date of Admission: 09/20/20 Primary Care Physician: TERESA Mas Reason For Visit: HTN EMERGENCY/PNEUMONIA Diagnosis Discharge Diagnosis (1) Hypoxia: Status: Acute Code(s): R09.02 - Hypoxemia (2) Hypertensive emergency: Status: Acute Code(s): I16.1 - Hypertensive emergency (3) Hyperlipidemia: Status: Chronic Code(s): E78.5 - Hyperlipidemia, unspecified (4) Chronic kidney disease: Status: Chronic Code(s): N18.9 - Chronic kidney disease, unspecified (5) Headache: Status: Acute Code(s): R51 - Headache (6) CARYN (acute kidney injury): Status: Acute Code(s): N17.9 - Acute kidney failure, unspecified Medications at Discharge Home Medications aspirin 81 mg PO DAILY@0800 07/15/18 apixaban 5 mg PO BID 08/04/18 atorvastatin 80 mg PO QHS 08/04/18 torsemide 100 mg tablet 50 mg PO BID tab 04/14/19 amlodipine 10 mg PO DAILY #30 tab 11/28/19 insulin glargine U-300 conc 300 unit/mL (1.5 mL) subcutaneous pen 18 unit SC BREAKFAST ml 08/03/20 melatonin 5 mg tablet 5 mg PO HS PRN 08/03/20 allopurinol 100 mg PO DAILY 09/20/20 carvedilol 12.5 mg PO BID 09/20/20 escitalopram oxalate [Lexapro] 5 mg PO DAILY 09/20/20 gabapentin 100 mg PO TID 09/20/20 hydralazine 100 mg PO TID 09/20/20 insulin aspart U-100 [Novolog Flexpen U-100 Insulin] 5 unit SUBCUT DINNER 09/20/20 insulin aspart U-100 [Novolog Flexpen U-100 Insulin] 5 unit SUBCUT LUNCH 09/20/20 levofloxacin 500 mg PO DAILY #2 tab 09/24/20 Hospital Course Summary of Care Provided Minutes Spent on Discharge: 35 Hospital Course: Discharge planning: There has been an ongoing dispute between patient and patient's sister, whom she lives with about returning to the home. When this provider entered the room upon examination this morning patient sister N/V, agreeable to patient returning home on condition that she obtains a psychiatrist for her psychiatry needs. Recommendation for Dr. Michael included in discharge instructions. Recommend follow-up within the next 2 weeks. 1) acute hypoxic respiratory insufficiency secondary to suspected CAP Vital signs stable and patient is afebrile. CBC does not demonstrate a leukocytosis. Chest x-ray on admission demonstrated possible effusion versus atelectasis of the left lung base, otherwise unremarkable. Patient reports marked improvement in her shortness of breath from admission. Plan; Levaquin prescription for 2 days written at discharge to complete 7-day course. Follow- up with primary care provider within the next 2 weeks. 2) hypertensive emergency Blood pressure not within goal throughout admission, currently 155/86. Patient has been previously admitted for elevated blood pressure in the past, patient reports that she is compliant with home medications however her family reports that they have found her medications stashed in the house. Suspect that elevated blood pressure is commendation of patient noncompliance and hypertensive regimen need to be updated. Echocardiogram on 09/24 demonstrated normal LV size with moderate concentric left ventricular hypertrophy, normal LV systolic function and estimated EF of 60% and a pulmonary artery systolic pressure of 34 mmHg. Plan; continue Coreg, continue hydralazine and amlodipine, follow-up with primary care provider within the next 2 weeks. 3) CKD stage IV Creatinine currently 2.8, baseline is between 2.2 and 2.5. Follow-up with primary care provider within the next 2 weeks for possible nephrology referral. 4) depression/anxiety Continue BuSpar. Psychiatrist recommendation included in discharge instructions, recommend follow-up within the next 2 weeks due to patient and family identified psychiatric needs. 5) obesity Weight currently 228 pounds with a BMI of 40.5. Weight loss recommended. Patient seen by Pedro Luis Hills PA-C, under the supervision of Dr. Polanco. Physical Exam Narrative Patient is a 54-year-old female sitting in bed crying talking to her sister on the phone, alert and oriented x3. Patient was under significant distress at the time of my examination due to an ongoing dispute between whether she can return to her sister's house on discharge or not, dispute was resolved over the course of my time in the room. Patient began to calm down. Denies chest pain, shortness of breath, palpitations, fever, chills, N/V/D. Const alert, oriented x3 and no apparent distress HEENT normocephalic, head/scalp atraumatic and hearing grossly normal bilaterally Eyes EOMs intact bilaterally and conjunctivae normal Neck no lymphadenopathy, supple and no JVD Resp normal respiratory effort, no retractions, no use of accessory muscles and clear to auscultation bilaterally Cardio regular rate, regular rhythm, no murmurs and no JVD GI normal to inspection, nondistended, normoactive bowel sounds, soft to palpation and non-tender Extremity normal to inspection, full ROM and no clubbing, cyanosis or edema Skin no rashes or lesions noted, no wounds and skin turgor normal Neuro CN's II-XII intact bilaterally Psych affect normal Weight / BMI Weight Weight: 228 lb 6.382 oz Body Mass Index (BMI) 41.1 ABG / Lab / Microbiology Data Result Diagrams: 09/23/20 05:02 09/24/20 05:38 Laboratory: Laboratory Results - last 24 hr 09/23/20 09/23/20 09/24/20 16:44 20:35 05:38 Sodium 139 Potassium 4.1 Chloride 107 Carbon Dioxide 23.0 Anion Gap 9 BUN 82 H Creatinine 2.85 H Estim Creat Clear Calc 18.67 Est GFR (MDRD) Af Amer 22 L Est GFR (MDRD) Non-Af 18 L BUN/Creatinine Ratio 28.8 H Glucose 157 H Calcium 7.4 L POC Glucose 166 H 193 H 09/24/20 09/24/20 06:38 12:53 Sodium Potassium Chloride Carbon Dioxide Anion Gap BUN Creatinine Estim Creat Clear Calc Est GFR (MDRD) Af Amer Est GFR (MDRD) Non-Af BUN/Creatinine Ratio Glucose Calcium POC Glucose 151 H 150 H Microbiology: Microbiology 09/21/20 04:40 Urine, Clean Catch Streptococcus pneumoniae Antigen (M - Final 09/20/20 20:26 Urine, Clean Catch Legionella Antigen - Final 09/20/20 14:16 Mucosa - Nasopharyngeal Respiratory Panel (PCR) - Final 09/20/20 15:20 Mucosa - Nose SARS-CoV-2 Antigen (Rapid) - Final Radiography Diagnostic Testing: Radiology Impression Echocardiogram 09/22/20 12:21 Interpretation Summary Normal LV size. Moderate concentric left ventricular hypertrophy. Left ventricular systolic function is normal. The estimated ejection fraction is 60 %. Pulmonary artery systolic pressure is 34 mmHg. ___ Ordering Physician: Sondra Dumont Referring Physician: Page Sutton Performed By: Marian Srivastava, LAYNE, RVT Chest X-Ray 09/23/20 05:23 IMPRESSION: Left lung base, minimal effusion versus atelectasis. The lungs are otherwise clear. No specific evidence of edema or pneumonia. Electronically Signed: Hermes Day MD at 16:12 EDT Tel , Service support , D/C Instructions Discharge Diet: No restrictions Please Follow Up With: Primary care provider When: Within the next two weeks. Meaningful Use Info Meaningful Use Diagnoses (Choose all that apply): None applicable Discharge Plan Admission Admit Date/Time: 09/20/20 12:43 Primary Reason for Your Visit: Shortness of breath/Pneumonia Attending Provider: Eboni Polanco Primary Care Provider: Page Sutton MALE INFERTILITY SPECIALIST Discharge Orders/Prescriptions Prescriptions: New levofloxacin 500 mg tablet 500 mg PO DAILY Qty: 2 RF: 0 Continued torsemide 100 mg tablet 50 mg PO BID RF: 0 melatonin 5 mg tablet 5 mg PO HS PRN (Reason: Sleep) RF: 0 aspirin 81 MG tablet,chewable 81 mg PO DAILY@0800 RF: 0 atorvastatin 80 MG tablet 80 mg PO QHS RF: 0 apixaban 5 MG tablet 5 mg PO BID RF: 0 insulin glargine U-300 conc 300 unit/mL (1.5 mL) insulin pen 18 unit SC BREAKFAST RF: 0 amlodipine 10 MG tablet 10 mg PO DAILY Qty: 30 RF: 0 carvedilol 12.5 mg tablet 12.5 mg PO BID RF: 0 allopurinol 100 mg tablet 100 mg PO DAILY RF: 0 hydralazine 100 mg tablet 100 mg PO TID RF: 0 gabapentin 100 mg capsule 100 mg PO TID RF: 0 insulin aspart U-100 [Novolog Flexpen U-100 Insulin] 100 unit/mL (3 mL) insulin pen 5 unit SUBCUT LUNCH RF: 0 insulin aspart U-100 [Novolog Flexpen U-100 Insulin] 100 unit/mL (3 mL) insulin pen 5 unit SUBCUT DINNER RF: 0 escitalopram oxalate [Lexapro] 5 mg Tablet 5 mg PO DAILY RF: 0 Referrals / Follow Up: [facility]YSICIANS] - 11/15/20 2:00 pm (Dr Allegra Soto October at 2p arrive 30 minutes early for paperwork. [facility] [place] [address] ) Salomón Michael MD [COURTESY STAFF PHYSICIAN] - Within 2 Weeks Adam Nicole MD [NON-STAFF] - 09/26/20 1:15 pm Disposition Disposition (needs filled in before D/C Order can be placed): Home, Self Care Documented by User: Dr. Eboni Polanco MD 09/24/20 16:40 Providers Date of Admission: 09/20/20 Reason For Visit: HTN EMERGENCY/PNEUMONIA Medications at Discharge Home Medications aspirin 81 mg PO DAILY@0800 07/15/18 apixaban 5 mg PO BID 08/04/18 atorvastatin 80 mg PO QHS 08/04/18 torsemide 100 mg tablet 50 mg PO BID tab 04/14/19 amlodipine 10 mg PO DAILY #30 tab 11/28/19 insulin glargine U-300 conc 300 unit/mL (1.5 mL) subcutaneous pen 18 unit SC BREAKFAST ml 08/03/20 melatonin 5 mg tablet 5 mg PO HS PRN 08/03/20 allopurinol 100 mg PO DAILY 09/20/20 carvedilol 12.5 mg PO BID 09/20/20 escitalopram oxalate [Lexapro] 5 mg PO DAILY 09/20/20 gabapentin 100 mg PO TID 09/20/20 hydralazine 100 mg PO TID 09/20/20 insulin aspart U-100 [Novolog Flexpen U-100 Insulin] 5 unit SUBCUT DINNER 09/20/20 insulin aspart U-100 [Novolog Flexpen U-100 Insulin] 5 unit SUBCUT LUNCH 09/20/20 levofloxacin 500 mg PO DAILY #2 tab 09/24/20 ABG / Lab / Microbiology Data Result Diagrams: 09/23/20 05:02 09/24/20 05:38 Discharge Plan Admission Admit Date/Time: 09/20/20 12:43 Primary Reason for Your Visit: Shortness of breath/Pneumonia Attending Provider: Eboni Polanco Primary Care Provider: Page Sutton MALE INFERTILITY SPECIALIST Discharge Orders/Prescriptions Prescriptions: New levofloxacin 500 mg tablet 500 mg PO DAILY Qty: 2 RF: 0 Continued torsemide 100 mg tablet 50 mg PO BID RF: 0 melatonin 5 mg tablet 5 mg PO HS PRN (Reason: Sleep) RF: 0 aspirin 81 MG tablet,chewable 81 mg PO DAILY@0800 RF: 0 atorvastatin 80 MG tablet 80 mg PO QHS RF: 0 apixaban 5 MG tablet 5 mg PO BID RF: 0 insulin glargine U-300 conc 300 unit/mL (1.5 mL) insulin pen 18 unit SC BREAKFAST RF: 0 amlodipine 10 MG tablet 10 mg PO DAILY Qty: 30 RF: 0 carvedilol 12.5 mg tablet 12.5 mg PO BID RF: 0 allopurinol 100 mg tablet 100 mg PO DAILY RF: 0 hydralazine 100 mg tablet 100 mg PO TID RF: 0 gabapentin 100 mg capsule 100 mg PO TID RF: 0 insulin aspart U-100 [Novolog Flexpen U-100 Insulin] 100 unit/mL (3 mL) insulin pen 5 unit SUBCUT LUNCH RF: 0 insulin aspart U-100 [Novolog Flexpen U-100 Insulin] 100 unit/mL (3 mL) insulin pen 5 unit SUBCUT DINNER RF: 0 escitalopram oxalate [Lexapro] 5 mg Tablet 5 mg PO DAILY RF: 0 Referrals / Follow Up: [facility] [[facility]YSICIANS] - 11/15/20 2:00 pm (Dr Allegra Soto October at 2p arrive 30 minutes early for paperwork. [facility] in [place], [place] - [address] [place] [address] ) Salomón Michael MD [COURTESY STAFF PHYSICIAN] - Within 2 Weeks Adam Nicole MD [NON-STAFF] - 09/26/20 1:15 pm Disposition Disposition (needs filled in before D/C Order can be placed): Home, Self Care Charges/Coding Addendum Addendum: Patient seen by Pedro Luis Hills PA-C under my supervision Patient is a 54-year-old female who was admitted via the ED on 09/20/2020 with complaint of shortness of breath with assisted nausea and vomiting but denied any chest pain. She also denied any fever or chills. Patient had a history of severe hypertension and not had previous admissions for hypertensive emergency. She was noted to be markedly hypertensive on presentation with blood pressure up at 210 systolic and diastolic as high as 105. High sensitive troponin was 12.4 and BNP was 207. Chest x-ray showed right middle lobe pneumonia and CT of the chest done showed patchy groundglass appearance likely related to pulmonary edema from her hypertension and a right middle lobe consolidation. She was admitted treated with Lasix and admitted to be managed for hypertensive emergency and community-acquired pneumonia as well as acute hypoxic respiratory insufficiency due to hypertensive emergency. Her BP meds were resumed and BP trended down gradually. She was also started on antibiotics for pneumonia. 2D echo done showed EF of 60% with no regional motion abnormalities and RVSP of 34 mmHg. Patient remained stable and was discharged home on 09/24/2020. Of note, there was some fracas between the patient and her sister who she lives with and sister was initially refusing to take the patient back. However patient was later agreeable to accepting patient on discharge provided she followed up with a psychiatrist on outpatient basis. Patient was therefore referred to psychiat ry on outpatient basis and is to follow-up with her primary care doctor. Patient seen and examined prior to discharge. She was initially tearful as her sister was initially refusing to take her back home. She had no other complaints and review of systems otherwise negative. Labs and vitals reviewed. Medication reviewed and reconciled. O/E: Const alert, oriented x3 and distressed and tearful initially HEENT normocephalic, head/scalp atraumatic and hearing grossly normal bilaterally Eyes EOMs intact bilaterally and conjunctivae normal Neck no lymphadenopathy, supple and no JVD Resp normal respiratory effort, no retractions, no use of accessory muscles and clear to auscultation bilaterally Cardio regular rate, regular rhythm, no murmurs and no JVD GI normal to inspection, nondistended, normoactive bowel sounds, soft to palpation and non-tender Extremity normal to inspection, full ROM and no clubbing, cyanosis or edema Skin no rashes or lesions noted, no wounds and skin turgor normal Neuro CN's II-XII intact bilaterally Psych tearful Plan is for discharge home today. Follow-up with your PCP and follow-up with psychiatry on outpatient basis. Patient counseled noncompliant with her medication. Rest as per Pedro Luis Hills PA-C's notes which I have reviewed and endorsed. Visit Charges Inpatient E&M: 06610 Disch Hosp
--- NOTE | 2020-09-24 14:37 | PHA.DC.MR ---
Pharmacy Service has performed discharge medication reconciliation for this patient. The patient's discharge medication list was reviewed for discrepancies and discrepancies were resolved. Home Medications aspirin 81 mg PO DAILY@0800 07/15/18 apixaban 5 mg PO BID 08/04/18 atorvastatin 80 mg PO QHS 08/04/18 torsemide 100 mg tablet 50 mg PO BID tab 04/14/19 amlodipine 10 mg PO DAILY #30 tab 11/28/19 insulin glargine U-300 conc 300 unit/mL (1.5 mL) subcutaneous pen 18 unit SC BREAKFAST ml 08/03/20 melatonin 5 mg tablet 5 mg PO HS PRN 08/03/20 allopurinol 100 mg PO DAILY 09/20/20 carvedilol 12.5 mg PO BID 09/20/20 escitalopram oxalate [Lexapro] 5 mg PO DAILY 09/20/20 gabapentin 100 mg PO TID 09/20/20 hydralazine 100 mg PO TID 09/20/20 insulin aspart U-100 [Novolog Flexpen U-100 Insulin] 5 unit SUBCUT DINNER 09/20/20 insulin aspart U-100 [Novolog Flexpen U-100 Insulin] 5 unit SUBCUT LUNCH 09/20/20 levofloxacin 500 mg PO DAILY #2 tab 09/24/20
--- NOTE | 2020-09-25 15:11 | CASEMGMT ---
SAPNA WINN Discharge Follow-up Phone Call: AMILCAR: Malgorzata Strata: 3 Call Date: 09/25/20 Discharge Date: 09/24/20 Time of Call: 1510 Duration: 1 min Admitting Diagnosis: HTN emergency, Pneumonia SAPNA WINN attempted to complete follow-up phone call after recent hospitalization. No answer, voice message left with return contact information. Patient was setup with [facility] at discharge.
== END 2020-09-24 14:36 | disposition home or self-care (01) | DRG 304 ==
LOC: ED 12:18 → PCU 13:04
PROVIDERS: Admitting Provider Internal Medicine; Emergency Provider Emergency Medicine; PCP Nurse Practitioner Family; Visit Provider Student in an Organized Health Care Education/Training Program
DX: I16.1 Hypertensive emergency (principal); J18.9 Pneumonia, unspecified organism; Z68.41 Body mass index [BMI] 40.0-44.9, adult; N17.9 Acute kidney failure, unspecified; N18.4 Chronic kidney disease, stage 4 (severe); R09.02 Hypoxemia; R06.89 Other abnormalities of breathing; E11.22 Type 2 diabetes mellitus with diabetic chronic kidney disease; I12.9 Hypertensive chronic kidney disease with stage 1 through stage 4 chronic kidney disease, or unspecified chronic kidney disease; F41.9 Anxiety disorder, unspecified; F32.9 Major depressive disorder, single episode, unspecified; Z87.891 Personal history of nicotine dependence; Z79.899 Other long term (current) drug therapy; I25.10 Atherosclerotic heart disease of native coronary artery without angina pectoris; E78.5 Hyperlipidemia, unspecified; Z86.73 Personal history of transient ischemic attack (TIA), and cerebral infarction without residual deficits; Z79.4 Long term (current) use of insulin; E66.01 Morbid (severe) obesity due to excess calories; J45.909 Unspecified asthma, uncomplicated; K21.9 Gastro-esophageal reflux disease without esophagitis; R51.9 Headache, unspecified; Z91.14 Patient's other noncompliance with medication regimen
CPT/HCPCS: 36415; 70450; 71045; 71250; 80048; 80053; 82962; 83690; 83735; 83880; 84100; 84443; 84484; 85025; 87426; 87449; 87633; 87641; 93005; 93306; 94640; 94667; 94668; 96374; 96375; 97110; 97162; 97530; 99251; 99285; J7030; J7040; J7050; A4216; G0463; J1940; J2405

== ENCOUNTER 2020-10-02 00:44 | Inpatient (IN) | payer MEDICARE, SELFPAY ==
[2020-09-20 14:11] VITALS: BMI 41.1
[2020-10-02] VITALS (22 sets, daily range): BP systolic 131–182; BP diastolic 56–124; PULSE 61–73; RESP 16–20; TEMP 36.3–37.4; O2SAT 89–98; BMI 45.6; BMI 42.7
--- NOTE | 2020-10-02 01:10 | RAD_ITS ---
STUDY: X-RAY CHEST REASON FOR EXAM: Female, 54 years old. SOB TECHNIQUE: PA and lateral views of the chest. COMPARISON: 09/23/2020 FINDINGS: Lungs are hypoinflated with patchy airspace disease bilaterally. No consolidation or effusion There is mild cardiac enlargement. Normal mediastinum and kristi. Normal visualized pulmonary arteries. Normal visualized aortic arch and descending thoracic aorta. Normal visualized thoracic spine. Normal visualized ribs, clavicles, and shoulders. There is no demonstrated abnormality of the visualized soft tissue structures of the upper abdomen. RAD/Chest PA and Lateral IMPRESSION: Cardiomegaly with diffuse patchy airspace disease. Possible edema Electronically Signed: Manuel Mo DO at 1:39 EDT Tel , Service support ,
--- NOTE | 2020-10-02 01:10 | EKG12_ITS ---
Test Reason : SOB Blood Pressure : / mmHG Vent. Rate : 066 BPM Atrial Rate : 066 BPM P-R Int : 242 ms QRS Dur : 082 ms QT Int : 454 ms P-R-T Axes : 065 009 030 degrees QTc Int : 475 ms Sinus rhythm with 1st degree A-V block Septal infarct , age undetermined Abnormal ECG Confirmed by KRISTINA REYES, CORINE ([id number]), newspaper managing editor CAPRI BROUSSARD ([id number]) on 10/03/2020 2:00:35 PM Referred By: MR Confirmed By:CORINE ACEVEDO MD
[2020-10-02 01:16] LABS: Absolute Lymphocyte Count 0.89 X10^3/uL (0.83-4.51); Absolute Neutrophil Count 8.5 X10^3/uL (2.0-7.7); Basophil# 0.05 X10^3/uL; Basophil% 0.5 % (0-1); Eosinophil# 0.37 X10^3/uL; Eosinophils% 3.4 % (0-5); Hemoglobin 10.1 g/dL (12.0-15.0); Lymphocyte # 0.89 X10^3/ul (0.83-4.51); Lymphocyte % 8.2 % (19-41); Mean Corp Hgb Conc 32.6 g/dL (32-36); Mean Corpuscular Hgb 28.8 pg (27.0-32.0); Mean Corpuscular Volume 88.3 fL (81-99); Mean Platelet Vol. 11.4 fl (6.2-12.0); Monocyte% 7.4 % (0-10); NRBC Flagged by Analyzer 0 % (0-5); Neutrophil % 78.5 % (47-70); Platelet Count 203 K/mm3 (150-450); RBC Distribution Width CV 14.3 % (11.6-14.6); RBC Distribution Width SD 45.5 fl (35.1-43.9); Red Blood Count 3.51 M/mm3 (4.2-5.4); White Blood Count 10.8 K/mm3 (4.4-11.0)
[2020-10-02 01:30] LABS: Anion Gap 6 (5-15); BUN 70 mg/dL (7-18); BUN/Creat Ratio 28.3 RATIO (10-20); Calcium,Total 7.8 mg/dL (8.5-10.1); Chloride 112 mmol/L (98-107); Creatinine, Serum 2.47 mg/dL (0.55-1.02); EST Glomerular Filtration Rate 22 mL/min (>60); Est Glom Filt Rate - Afr Amer 26 mL/min (>60); Estimated Creatinine Clearance 19.65 ml/min; Glucose 158 mg/dL (74-106); Potassium 3.9 mmol/L (3.5-5.1); Sodium Level 139 mmol/L (136-145); Troponin-I HS 10.9 pg/mL (3.0-53.7)
--- NOTE | 2020-10-02 02:21 | PCM.HP.STD ---
HPI - General General Date of Admission: 10/02/20 HPI Narrative ZAYDA ANTOINE, is a 54 F with a significant history of morbid obesity; CVA; diabetes mellitus; hypertension; and heart failure with preserved ejection fraction who presents 1 day history of shortness of breath. Associated with symptoms is orthopnea; paroxysmal nocturnal dyspnea and bilateral leg edema. Patient complains of multiple other symptoms of chest pain; headache; no vomiting; and productive cough. Also she states that she is forgetful and she cannot remember things. At the emergency department her oxygen saturation was noted to be 89%. [facility]LY [facility] Medical History Acute ischemic left MCA stroke Acute kidney injury Acute renal injury due to circulatory failure Anxiety Asthma Atherosclerosis of coronary artery of [place] heart without angina pectoris Community acquired bacterial pneumonia Congestive heart failure Depression Diabetes Essential hypertension GERD (gastroesophageal reflux disease) History of cholelithiasis History of CVA (cerebrovascular accident) History of renal calculi Hyperlipidemia Kidney disease Morbid obesity Stroke/cerebrovascular accident Type 2 diabetes mellitus without complication Home Medications aspirin 81 mg PO DAILY@0800 07/15/18 [History Last Taken 10/01/20] apixaban 5 mg PO BID 08/04/18 [History Last Taken 10/01/20] atorvastatin 80 mg PO QHS 08/04/18 [History Last Taken 10/01/20] torsemide 100 mg tablet 50 mg PO BID tab 04/14/19 [History Last Taken 10/01/20] amlodipine 10 mg PO DAILY #30 tab 11/28/19 [Rx Last Taken 10/01/20] insulin glargine U-300 conc 300 unit/mL (1.5 mL) subcutaneous pen 18 unit SC BREAKFAST ml 08/03/20 [History Last Taken 10/01/20] melatonin 5 mg tablet 5 mg PO HS PRN 08/03/20 [History Last Taken 10/01/20] allopurinol 100 mg PO DAILY 09/20/20 [History Last Taken 10/01/20] carvedilol 12.5 mg PO BID 09/20/20 [History Last Taken 10/01/20] escitalopram oxalate [Lexapro] 5 mg PO DAILY 09/20/20 [History Last Taken 10/01/20] gabapentin 100 mg PO TID 09/20/20 [History Last Taken 10/01/20] hydralazine 100 mg PO TID 09/20/20 [History Last Taken 10/01/20] insulin aspart U-100 [Novolog Flexpen U-100 Insulin] 5 unit SUBCUT DINNER 09/20/20 [History Last Taken 10/01/20] insulin aspart U-100 [Novolog Flexpen U-100 Insulin] 5 unit SUBCUT LUNCH 09/20/20 [History Last Taken 10/01/20] Allergy/AdvReac Type Severity Reaction Status Date / Time No Known Allergies Allergy Verified 10/02/20 00:49 Family History Mother Diabetes Heart disease Hypertension Father Hypertension Heart disease Brother Heart disease Hypertension Sister Heart disease Diabetes Surgical History History of cholecystectomy History of left heart catheterization History of PTCA S/P appendectomy S/P section S/P laparoscopic cholecystectomy Social History Smoking Status: Former smoker alcohol intake: never ROS ROS Narrative 12 point review of system is negative except as stated in HPI. Vital Signs Vital Signs Vital Signs: 10/02/20 00:44 10/02/20 00:52 Temperature 97.5 F L Temperature Source Oral Pulse Rate 68 Respiratory Rate 20 H Respiratory Effort Normal Non-Labored Respiratory Depth Normal Respiratory Pattern Normal Blood Pressure 174/124 H Blood Pressure Mean 140 Pulse Ox 89 Oxygen Delivery Method Room Air Nasal Cannula Oxygen Flow Rate (L/min) 2 Weight Weight: 109.5 kg Body Mass Index (BMI) 45.6 Physical Exam Narrative Physical exam: General: Well-nourished, well-developed, no acute distress Head: Normocephalic, atraumatic, no tenderness Eyes: PERRLA, EOMI ENT, no trauma, moist mucous membranes, no rhinorrhea Neck: Nontender, full range of motion, no spinal tenderness, deformities, step-off CVS: Regular rate and rhythm Respiratory no acute distress, clear to auscultation bilaterally, chest wall nontender, no wheezing Abdomen: Soft, nontender, nondistended, normal bowel sounds, no masses : Deferred Back: Nontender, no CVA tenderness, no midline spinal tenderness, deformities, step-offs Extremities: Tender bilateral feet. 2+ bilateral feet edema. Skin: Normal color, no trauma, abrasions Neuro: Alert, oriented, cranial nerves II through XII grossly intact. Psychiatry: Very talkative and occasionally provides tangential answers. Results Lab / Micro Data Result Diagrams: 10/02/20 00:50 10/02/20 00:50 Labs: Laboratory Results - last 24 hr 10/02/20 10/02/20 10/02/20 00:50 00:50 00:50 WBC 10.8 RBC 3.51 L Hgb 10.1 L Hct 31.0 L MCV 88.3 MCH 28.8 MCHC 32.6 RDW Std Deviation 45.5 H RDW Coeff of [place] 14.3 Plt Count 203 MPV 11.4 Immature Gran % (Auto) 2.000 H Neut % (Auto) 78.5 H Lymph % (Auto) 8.2 L [place] % (Auto) 7.4 Eos % (Auto) 3.4 Baso % (Auto) 0.5 Absolute Neuts (auto) 8.5 H Absolute Lymphs (auto) 0.89 Nucleated RBC % 0 Sodium 139 Potassium 3.9 Chloride 112 H Carbon Dioxide 21.0 Anion Gap 6 BUN 70 H Creatinine 2.47 H Estim Creat Clear Calc 19.65 Est GFR (MDRD) Af Amer 26 L Est GFR (MDRD) Non-Af 22 L BUN/Creatinine Ratio 28.3 H Glucose 158 H Calcium 7.8 L Troponin I High Sens 10.9 B-Natriuretic Peptide 201.0 H Radiology Impression Chest X-Ray 10/02/20 01:10 IMPRESSION: Cardiomegaly with diffuse patchy airspace disease. Possible edema Electronically Signed: Manuel Mo DO at 1:39 EDT Tel , Service support , Assessment & Plan Assessment/Plan (1) Respiratory insufficiency: (2) Heart failure with preserved ejection fraction: QUALIFIERS: Heart failure chronicity: acute on chronic Qualified Code(s): I50.33 - Acute on chronic diastolic (congestive) heart failure (3) Chest pain: QUALIFIERS: Chest pain type: other chest pain Qualified Code(s): R07.89 - Other chest pain PLAN: Acute Exacerbation of heart failure with preserved ejection fraction Place on monitored bed on a progressive care unit Weight on admission to the floor; and then daily Strict I&O's Radiologist impression of chest x-ray : Cardiomegaly with diffuse patchy airspace disease. Possible edema. CXR independently interpreted. I agree with the radiologist interpretation EKG independently personally interpreted showed first-degree AV block and Q waves in V1 to V3. Emergency department labs reviewed showed BNP of 201. Review of old records show that her BNP on 09/20/2020 was 207.4; on 06/04/2018 was 209.5; and on 05/18/2018 was 574.5 On torsemide 50 mg p.o. twice daily at home. Received Lasix 40 mg IV at home. Lasix 80 mg IV twice daily. Potassium supplementation ordered. Echocardiogram on 09/22/2020 was reviewed. Echo showed estimated ejection fraction of 60%. Mild 1+ tricuspid valve insufficiency. Pulmonary artery systolic pressure was 34 mmHg Trend blood pressure Kerlix roll and earline wrap to bilateral lower extremities Fluid restriction of 1500 mls daily Nitroglycerin paste x1 ordered at the emergency department. Cardiac with calorie control diet. Hypertensive urgency. Nitroglycerin paste as above. Coreg; hydralazine and amiodarone continued. Trend blood pressure and adjust blood pressure medications Chest pain EKG with sinus rhythm and first-degree AV block. Q waves in leads V1 and V2; unchanged from previous. Initial high intensity troponin negative; trend. Aspirin and Eliquis continued. Diabetes mellitus Patient with hyperglycemia on presentation Basal and prandial insulin adjusted. Accu-Chek QA [facility] with correction scale insulin ordered. CAD status post stent/history of CVA Aspirin and high intensity statin continue Apixaban continued Depression Lexapro continued DVT prophylaxis: Subcutaneous Lovenox ordered Charges/Coding Visit Charges Inpatient E&M: 32375 Init Hosp L3
--- NOTE | 2020-10-02 02:22 | ED.VIS.DYS ---
HPI History of Present Illness Chief Complaint: Shortness of Breath Narrative Narrative: Patient presenting for evaluation secondary to shortness of breath. Patient has an underlying history of very poor baseline health with congestive heart failure recent hospital admission secondary to CHF and pneumonia. Patient was discharged around a week ago, she states that she was doing relatively well at home but then tonight she redeveloped shortness of breath. She states that she did not have any preceding infectious symptoms such as fever cough nausea vomiting diarrhea. She denies any chest pain. Patient does state that when she went to bed she woke up and she was having a coughing fit and felt significantly short of breath, so she presented to the emergency department. Patient denies that she has been having significant edema. She does report that she feels generalized malaise and weakness. Patient is already anticoagulated with Eliquis, she states that she has not missed any doses of this. Review of systems otherwise negative. [facility] Medical History Acute ischemic left MCA stroke Acute kidney injury Acute renal injury due to circulatory failure Anxiety Asthma Atherosclerosis of coronary artery of [place] heart without angina pectoris Community acquired bacterial pneumonia Congestive heart failure Depression Diabetes Essential hypertension GERD (gastroesophageal reflux disease) History of cholelithiasis History of CVA (cerebrovascular accident) History of renal calculi Hyperlipidemia Kidney disease Morbid obesity Stroke/cerebrovascular accident Type 2 diabetes mellitus without complication Home Medications aspirin 81 mg PO DAILY@0800 07/15/18 [History Last Taken 10/01/20] apixaban 5 mg PO BID 08/04/18 [History Last Taken 10/01/20] atorvastatin 80 mg PO QHS 08/04/18 [History Last Taken 10/01/20] torsemide 100 mg tablet 50 mg PO BID tab 04/14/19 [History Last Taken 10/01/20] amlodipine 10 mg PO DAILY #30 tab 11/28/19 [Rx Last Taken 10/01/20] insulin glargine U-300 conc 300 unit/mL (1.5 mL) subcutaneous pen 18 unit SC BREAKFAST ml 08/03/20 [History Last Taken 10/01/20] melatonin 5 mg tablet 5 mg PO HS PRN 08/03/20 [History Last Taken 10/01/20] allopurinol 100 mg PO DAILY 09/20/20 [History Last Taken 10/01/20] carvedilol 12.5 mg PO BID 09/20/20 [History Last Taken 10/01/20] escitalopram oxalate [Lexapro] 5 mg PO DAILY 09/20/20 [History Last Taken 10/01/20] gabapentin 100 mg PO TID 09/20/20 [History Last Taken 10/01/20] hydralazine 100 mg PO TID 09/20/20 [History Last Taken 10/01/20] insulin aspart U-100 [Novolog Flexpen U-100 Insulin] 5 unit SUBCUT DINNER 09/20/20 [History Last Taken 10/01/20] insulin aspart U-100 [Novolog Flexpen U-100 Insulin] 5 unit SUBCUT LUNCH 09/20/20 [History Last Taken 10/01/20] Allergy/AdvReac Type Severity Reaction Status Date / Time No Known Allergies Allergy Verified 10/02/20 00:49 Family History Mother Diabetes Heart disease Hypertension Father Hypertension Heart disease Brother Heart disease Hypertension Sister Heart disease Diabetes Surgical History History of cholecystectomy History of left heart catheterization History of PTCA S/P appendectomy S/P section S/P laparoscopic cholecystectomy Social History Smoking Status: Former smoker alcohol intake: never ROS ROS ED Constitutional Constitutional ED: Denies chills or fever(s) ENT ENT ED: Denies rhinorrhea Cardiovascular Cardiovascular: Denies chest pain Respiratory/Chest Respiratory/Chest: Reports cough and dyspnea Gastrointestinal Gastrointestinal: Denies abdominal pain, diarrhea, nausea or vomiting Genitourinary Genitourinary ED: Denies dysuria or hematuria Musculoskeletal Musculoskeletal: Reports other Details: Right foot pain ; Denies back pain Integumentary Denies rash Neurologic Neurologic: Denies paresthesias or weakness Psychiatric Psychiatric: Denies depression Endocrine Endocrinology: Denies fatigue Allergic/Immunologic Allergic/Immunologic ED: Denies urticaria EXAM Physical Exam Const Vital Signs: 10/02/20 00:44 10/02/20 00:52 10/02/20 02:22 Temperature 97.5 F L Temperature Source Oral Pulse Rate 68 73 Respiratory Rate 20 H 20 H Respiratory Effort Normal Non-Labored Respiratory Depth Normal Respiratory Pattern Normal Blood Pressure 174/124 H 171/92 H Blood Pressure Mean 140 118 Pulse Ox 89 94 Oxygen Delivery Method Room Air Nasal Cannula Room Air Oxygen Flow Rate (L/min) 2 Positive well nourished, well developed and obese General Appearance ED: well developed and NAD Nutritional Appearance: obese HEENT Reports moist mucous membranes Negative for trauma or tenderness Eyes EOMs intact bilaterally Neck no lymphadenopathy, supple and no JVD Chest Wall inspection of chest normal Resp Resp Narrative: Patient is tachypneic with no retractions. There are rales in the bases bilaterally. Cardio regular rate, regular rhythm and peripheral pulses 2+ throughout Cardio Narrative: Soft 2 out of 6 murmur. 1+ DP pulses bilaterally symmetric, 2+ radial pulses bilaterally symmetric. GI normal to inspection, nondistended, normoactive bowel sounds, non-tender and no masses Palpation: soft Back/Spine normal to inspection Extremity normal to inspection Extremity Narrative: +1 bilateral lower extremity edema. Right foot exam shows bruising of the second toe, normal capillary refill. General Extremety ED: Yes edema; Negative for tenderness General Extremity: edema Neuro oriented x3 and no sensory deficits noted Sensorium / Orientation: alert Motor Exam: strength 5/5 throughout Psych mental status grossly normal Skin no rashes or lesions noted MDM MDM MDM Narrative Medical decision making narrative: Patient presented secondary to shortness of breath. She was noted to be hypoxic upon arrival is not typically on supplemental oxygen. She was placed on this had minimal improvement. Work-up demonstrates patient not to have a leukocytosis she does have a mild shift at 78% neutrophils. Chemistry shows the patient's chronic renal disease with a creatinine of 2.47 which is actually lower than when she was discharged. No significant electrolyte derangements. Patient's troponin was noted to be negative. BNP slightly elevated at 201. I did not obtain a D-dimer on the patient due to the fact that she is already anticoagulated on Coumadin and is not complaining of chest pain and is not really tachycardic. Patient's chest x-ray by my personal review as well as radiology demonstrates some diffuse patchy airspace disease possible edema and I feel that this likely is indicative of the patient having a CHF exacerbation. Patient was given Lasix and 0.5 inches of Nitropaste replaced on the patient's chest. I believe she requires admission. Patient will be discussed with the hospitalist. Lab Data Labs: Laboratory Results - last 24 hr 10/02/20 10/02/20 10/02/20 00:50 00:50 00:50 WBC 10.8 RBC 3.51 L Hgb 10.1 L Hct 31.0 L MCV 88.3 MCH 28.8 MCHC 32.6 RDW Std Deviation 45.5 H RDW Coeff of [place] 14.3 Plt Count 203 MPV 11.4 Immature Gran % (Auto) 2.000 H Neut % (Auto) 78.5 H Lymph % (Auto) 8.2 L [place] % (Auto) 7.4 Eos % (Auto) 3.4 Baso % (Auto) 0.5 Absolute Neuts (auto) 8.5 H Absolute Lymphs (auto) 0.89 Nucleated RBC % 0 Sodium 139 Potassium 3.9 Chloride 112 H Carbon Dioxide 21.0 Anion Gap 6 BUN 70 H Creatinine 2.47 H Estim Creat Clear Calc 19.65 Est GFR (MDRD) Af Amer 26 L Est GFR (MDRD) Non-Af 22 L BUN/Creatinine Ratio 28.3 H Glucose 158 H Calcium 7.8 L Troponin I High Sens 10.9 B-Natriuretic Peptide 201.0 H Radiography Chest X-Ray - ED: 2 View, Read by ED Physician and CHF Diagnostic Testing: Radiology Impression Chest X-Ray 10/02/20 01:10 IMPRESSION: Cardiomegaly with diffuse patchy airspace disease. Possible edema Electronically Signed: Manuel Mo DO at 1:39 EDT Tel , Service support , EKG Initial EKG: Attestation: I personally reviewed and interpreted this EKG as follows: (Sinus rhythm with first-degree AV block, VA interval is noted is 242 ms normal QTC, no pathologic deviation of the patient's S T waves, normal upright T waves. Septal Q waves are noted.) Discharge Plan Triage Chief Complaint: Shortness of Breath ED Provider: Eddie Caba Dx/Rx/DC Orders Clinical Impression: Congestive heart failure, Chronic kidney disease, Hypoxia Prescriptions: No Action torsemide 100 mg tablet 50 mg PO BID RF: 0 melatonin 5 mg tablet 5 mg PO HS PRN (Reason: Sleep) RF: 0 aspirin 81 MG tablet,chewable 81 mg PO DAILY@0800 RF: 0 atorvastatin 80 MG tablet 80 mg PO QHS RF: 0 apixaban 5 MG tablet 5 mg PO BID RF: 0 insulin glargine U-300 conc 300 unit/mL (1.5 mL) insulin pen 18 unit SC BREAKFAST RF: 0 amlodipine 10 MG tablet 10 mg PO DAILY Qty: 30 RF: 0 carvedilol 12.5 mg tablet 12.5 mg PO BID RF: 0 allopurinol 100 mg tablet 100 mg PO DAILY RF: 0 hydralazine 100 mg tablet 100 mg PO TID RF: 0 gabapentin 100 mg capsule 100 mg PO TID RF: 0 insulin aspart U-100 [Novolog Flexpen U-100 Insulin] 100 unit/mL (3 mL) insulin pen 5 unit SUBCUT LUNCH RF: 0 insulin aspart U-100 [Novolog Flexpen U-100 Insulin] 100 unit/mL (3 mL) insulin pen 5 unit SUBCUT DINNER RF: 0 escitalopram oxalate [Lexapro] 5 mg Tablet 5 mg PO DAILY RF: 0 Primary Care Provider: Page Sutton NP Referrals: Page Sutton NP, [facility] [Primary Care Provider] - Disposition Disposition: Acute Care Hospital [facility]
[2020-10-02] MEDS: Furosemide 40 MG/4 ML Vial IV (02:59)
[2020-10-02] MEDS: Nitroglycerin Oint 1 INCH PACKET 0.5 INCH TD (02:59)
[2020-10-02 04:04] LABS: Absolute Lymphocyte Count 0.94 X10^3/uL (0.83-4.51); Absolute Neutrophil Count 11.3 X10^3/uL (2.0-7.7); Basophil# 0.05 X10^3/uL; Basophil% 0.4 % (0-1); Eosinophils% 2.9 % (0-5); Hematocrit 32.5 % (37-47); Hemoglobin 10.5 g/dL (12.0-15.0); Lymphocyte # 0.94 X10^3/ul (0.83-4.51); Lymphocyte % 6.8 % (19-41); Mean Corp Hgb Conc 32.3 g/dL (32-36); Mean Corpuscular Hgb 28.7 pg (27.0-32.0); Mean Corpuscular Volume 88.8 fL (81-99); Mean Platelet Vol. 11.6 fl (6.2-12.0); Monocyte% 6.5 % (0-10); NRBC Flagged by Analyzer 0 % (0-5); Neutrophil # 11.26 X10^3/uL (2.7-7.7); Neutrophil % 81.6 % (47-70); Platelet Count 250 K/mm3 (150-450); RBC Distribution Width CV 14.4 % (11.6-14.6); RBC Distribution Width SD 46.1 fl (35.1-43.9); Red Blood Count 3.66 M/mm3 (4.2-5.4); White Blood Count 13.8 K/mm3 (4.4-11.0)
[2020-10-02 04:26] LABS: Troponin-I HS 10.7 pg/mL (3.0-53.7)
[2020-10-02] MEDS: Acetaminophen 325 MG Tablet 650 MG PO ×3 (04:31→19:43)
[2020-10-02] MEDS: hydrALAZINE 50 MG Tablet 100 MG PO ×3 (04:32→21:24)
[2020-10-02] MEDS: Gabapentin 100 MG Capsule PO ×3 (04:32→21:24)
[2020-10-02 05:23] LABS: Anion Gap 10 (5-15); BUN 67 mg/dL (7-18); BUN/Creat Ratio 26.9 RATIO (10-20); Calcium,Total 7.9 mg/dL (8.5-10.1); Chloride 111 mmol/L (98-107); Creatinine, Serum 2.49 mg/dL (0.55-1.02); EST Glomerular Filtration Rate 21 mL/min (>60); Est Glom Filt Rate - Afr Amer 26 mL/min (>60); Estimated Creatinine Clearance 20.43 ml/min; Glucose 141 mg/dL (74-106); Sodium Level 141 mmol/L (136-145)
[2020-10-02 06:51] LABS: Bedside Glucose 125 mg/dL (70-110)
[2020-10-02 07:43] LABS: Troponin-I HS 10.1 pg/mL (3.0-53.7)
[2020-10-02] MEDS: Potassium Chloride Oral Tablet 20 MEQ 40 MEQ PO (09:27)
[2020-10-02] MEDS: Escitalopram Oxalate 10 MG Tablet 5 MG PO (09:28)
[2020-10-02] MEDS: amLODIPine 10 MG Tablet PO (09:28)
[2020-10-02] MEDS: Carvedilol 12.5 MG Tablet PO ×2 (09:28→21:24)
[2020-10-02] MEDS: Allopurinol 100 MG Tablet PO (09:28)
[2020-10-02] MEDS: APIXABAN 5 MG TABLET PO ×2 (09:28→21:25)
[2020-10-02] MEDS: Aspirin 81 MG TAB.CHEW PO (09:28)
[2020-10-02] MEDS: 0.9% Saline Lock 10 ML Syringe IV ×2 (09:29→17:25)
[2020-10-02] MEDS: Furosemide 100 MG/10 ML Vial 80 MG IV ×2 (09:31→17:24)
--- NOTE | 2020-10-02 10:44 | CASEMGMT ---
Readmission chart review: Pt was initially admitted 09/20-09/24/20 for Hypertensive emergency, pna. Pt lives with sister and has hx of CVA's. Initially, pt's sister declined to take her home and was then agreeable if pt was set up appt a counseling center to see psychiatrist. Pt was made an appt on 11/15/20 at the [facility]. Pt/sister c/o pt being 'forgetful and having some short term memory loss.' Pt returned to [facility] ED on 10/02/20 for SOB via EMS. Pt was admitted today for Acute exac HF. Pt was set up with [facility] upon discharge last visit as well as f/u with counseling center and Dr. Nicole. CM to follow for any further discharge planning/needs. Cecil ALEJO CM
[2020-10-02] MEDS: Insulin Lispro 100 UNIT/ML INSULN.PEN SC ×4 (11:39→21:32)
[2020-10-02 11:50] LABS: Bedside Glucose 191 mg/dL (70-110)
--- NOTE | 2020-10-02 12:29 | CASEMGMT ---
SW met w/pt in room initially, then called pt's sister. SW spoke w/pt about prior level of function and anticipated discharge needs. SW confirmed w/pt she is living w/her sister and pt states she plans to return home at discharge. Pt confirmed she has home health care coming into the home. Pt states she does not remember everything because she had a stroke, and that her sister knows everything. She states her sister is going to work in an hour, but is agreeable to SW calling pt's sister. SW called pt's sister, confirmed w/her that pt will return home at discharge. She confirmed pt has home health, and that she is still planning to follow up w/counseling appointment in October that was made on last admission for pt. Pt's sister also plans to follow up w/[facility] regarding adult day care, has not done so yet however. Pt's sister confirmed also that other information given on last admission has not changed: PCP: OLGA LIDIA Sutton Specialists: Dr. Irizarry, Dr. Deluca, Nr. Mc Preferred Pharmacy: [facility] [place] Insurance: Medicare/Medicaid LW/POA: None Next of Kin: Sister Living arrangements: Pt lives w/sister and sister's significant other in a mobile home w/6 steps in. Pt independent at home. Pt's sister assists as needed Transportation: Family DME/HHC: Pt has walker and grab bars, pt informed this SW she uses a walker at her baseline. Pt is current w/[facility]. Pt informed SW doesn't have O2 at home. Plan: Return home w/sister and [facility] H[facility], pt's sister to follow up w/[facility], and take pt to counseling appt in October. Home O2 will be ordered if needed. LA Leary
--- NOTE | 2020-10-02 12:46 | PN.HOSP_ITS ---
Subjective Subjective Complains of abdominal pain. I asked if she received the COVID-19 vaccine. She asked, what's that? I told her it was for COVID-19. She said she never heard of it. I asked if she was aware of the pandemic. She said she may have heard of it. Objective Data Objective Data Vital Signs: Vital Signs Temp Pulse Resp BP Pulse Ox 37.4 C H 62 18 145/67 H 98 10/02/20 09:25 10/02/20 09:25 10/02/20 09:25 10/02/20 09:25 10/02/20 09:25 Oxygen Flow Rate (L/min) 2 Oxygen Delivery Method Nasal Cannula Weight: 105.5 kg Body Mass Index (BMI) 42.7 Intake & Output: Intake and Output for Last 24 Hours 09/30/20 10/01/20 10/02/20 23:59 23:59 23:59 Intake Total 320 / 320 Balance 320 / 320 Lab / Micro Data Result Diagrams: 10/02/20 03:20 10/02/20 03:20 Labs: Laboratory Results - last 24 hr 10/02/20 10/02/20 10/02/20 00:50 00:50 00:50 WBC 10.8 RBC 3.51 L Hgb 10.1 L Hct 31.0 L MCV 88.3 MCH 28.8 MCHC 32.6 RDW Std Deviation 45.5 H RDW Coeff of [place] 14.3 Plt Count 203 MPV 11.4 Immature Gran % (Auto) 2.000 H Neut % (Auto) 78.5 H Lymph % (Auto) 8.2 L [place] % (Auto) 7.4 Eos % (Auto) 3.4 Baso % (Auto) 0.5 Absolute Neuts (auto) 8.5 H Absolute Lymphs (auto) 0.89 Nucleated RBC % 0 Sodium 139 Potassium 3.9 Chloride 112 H Carbon Dioxide 21.0 Anion Gap 6 BUN 70 H Creatinine 2.47 H Estim Creat Clear Calc 19.65 Est GFR (MDRD) Af Amer 26 L Est GFR (MDRD) Non-Af 22 L BUN/Creatinine Ratio 28.3 H Glucose 158 H Calcium 7.8 L Troponin I High Sens 10.9 B-Natriuretic Peptide 201.0 H POC Glucose 10/02/20 10/02/20 10/02/20 03:20 03:20 03:20 WBC 13.8 H RBC 3.66 L Hgb 10.5 L Hct 32.5 L MCV 88.8 MCH 28.7 MCHC 32.3 RDW Std Deviation 46.1 H RDW Coeff of [place] 14.4 Plt Count 250 MPV 11.6 Immature Gran % (Auto) 1.800 H Neut % (Auto) 81.6 H Lymph % (Auto) 6.8 L [place] % (Auto) 6.5 Eos % (Auto) 2.9 Baso % (Auto) 0.4 Absolute Neuts (auto) 11.3 H Absolute Lymphs (auto) 0.94 Nucleated RBC % 0 Sodium 141 Potassium 4.0 Chloride 111 H Carbon Dioxide 20.0 L Anion Gap 10 BUN 67 H Creatinine 2.49 H Estim Creat Clear Calc 20.43 Est GFR (MDRD) Af Amer 26 L Est GFR (MDRD) Non-Af 21 L BUN/Creatinine Ratio 26.9 H Glucose 141 H Calcium 7.9 L Troponin I High Sens 10.7 B-Natriuretic Peptide POC Glucose 10/02/20 10/02/20 10/02/20 06:16 07:08 11:37 WBC RBC Hgb Hct MCV MCH MCHC RDW Std Deviation RDW Coeff of [place] Plt Count MPV Immature Gran % (Auto) Neut % (Auto) Lymph % (Auto) [place] % (Auto) Eos % (Auto) Baso % (Auto) Absolute Neuts (auto) Absolute Lymphs (auto) Nucleated RBC % Sodium Potassium Chloride Carbon Dioxide Anion Gap BUN Creatinine Estim Creat Clear Calc Est GFR (MDRD) Af Amer Est GFR (MDRD) Non-Af BUN/Creatinine Ratio Glucose Calcium Troponin I High Sens 10.1 B-Natriuretic Peptide POC Glucose 125 H 191 H Micro: Microbiology 10/02/20 02:00 Mucosa - Nose SARS-CoV-2 Antigen (Rapid) - Final Radiography Diagnostic Testing: Radiology Impression Chest X-Ray 10/02/20 01:10 IMPRESSION: Cardiomegaly with diffuse patchy airspace disease. Possible edema Electronically Signed: Manuel Mo DO at 1:39 EDT Tel , Service support , Physical Exam Const alert Constitutional Narrative: confused HEENT Head and Scalp: normocephalic Resp normal respiratory effort, no retractions, no use of accessory muscles and clear to auscultation bilaterally Cardio regular rate, regular rhythm, S1 normal heart sound and S2 normal heart sound GI normal to inspection, nondistended, normoactive bowel sounds, soft to palpation, non-tender and non-distended Assessment & Plan Assessment/Plan (1) Heart failure with preserved ejection fraction: QUALIFIERS: Heart failure chronicity: acute on chronic Qualified Code(s): I50.33 - Acute on chronic diastolic (congestive) heart failure (2) Respiratory insufficiency: PLAN: 1. acute HFpEF * EF 60% from echo on 09/24/2020 * on furosemide * weight down from 109.5 to 105.5 2. Acute hypoxic respiratory insuffiency * 2/2 above * check COVID-19 PCR 3. CKD IV * creatinine stable * monitor closely while on diuresis. * complicates overall treatment for CHF 4. DM2 * fair control * continue glargine, prandial and SSI 5. H/O CVA with short-term memory impairment. * continue ASA and HIS 6. VTE prophylaxis: anticoagulated. Charges/Coding Visit Charges Inpatient E&M: 42184 Subs Hosp L2
[2020-10-02 17:10] LABS: Bedside Glucose 131 mg/dL (70-110)
[2020-10-02] MEDS: Atorvastatin Calcium 80 MG Tablet PO (21:24)
[2020-10-02 21:41] LABS: Bedside Glucose 150 mg/dL (70-110)
[2020-10-03] VITALS (12 sets, daily range): BP systolic 117–150; BP diastolic 58–65; PULSE 60–63; RESP 18; TEMP 36.5–36.8; O2SAT 86–96
[2020-10-03] MEDS: hydrALAZINE 50 MG Tablet 100 MG PO ×2 (05:37→13:32)
[2020-10-03] MEDS: Gabapentin 100 MG Capsule PO ×2 (05:37→13:32)
[2020-10-03] MEDS: Insulin Lispro 100 UNIT/ML INSULN.PEN SC ×3 (06:37→11:26)
[2020-10-03 06:46] LABS: Bedside Glucose 168 mg/dL (70-110)
[2020-10-03 07:00] LABS: Absolute Lymphocyte Count 1.02 X10^3/uL (0.83-4.51); Basophil# 0.03 X10^3/uL; Basophil% 0.4 % (0-1); Eosinophil# 0.37 X10^3/uL; Eosinophils% 4.6 % (0-5); Hematocrit 27.9 % (37-47); Hemoglobin 8.9 g/dL (12.0-15.0); Lymphocyte # 1.02 X10^3/ul (0.83-4.51); Lymphocyte % 12.6 % (19-41); Mean Corp Hgb Conc 31.9 g/dL (32-36); Mean Corpuscular Hgb 28.5 pg (27.0-32.0); Mean Corpuscular Volume 89.4 fL (81-99); Monocyte# 0.61 X10^3/uL; Monocyte% 7.5 % (0-10); NRBC Flagged by Analyzer 0 % (0-5); Neutrophil # 5.97 X10^3/uL (2.7-7.7); Neutrophil % 73.7 % (47-70); Platelet Count 196 K/mm3 (150-450); RBC Distribution Width CV 14.5 % (11.6-14.6); RBC Distribution Width SD 46.4 fl (35.1-43.9); Red Blood Count 3.12 M/mm3 (4.2-5.4); White Blood Count 8.1 K/mm3 (4.4-11.0)
[2020-10-03 07:37] LABS: Anion Gap 10 (5-15); BUN 79 mg/dL (7-18); BUN/Creat Ratio 28.5 RATIO (10-20); Calcium,Total 7.4 mg/dL (8.5-10.1); Chloride 110 mmol/L (98-107); Creatinine, Serum 2.77 mg/dL (0.55-1.02); EST Glomerular Filtration Rate 19 mL/min (>60); Est Glom Filt Rate - Afr Amer 23 mL/min (>60); Estimated Creatinine Clearance 18.36 ml/min; Glucose 145 mg/dL (74-106); Potassium 4.1 mmol/L (3.5-5.1); Sodium Level 142 mmol/L (136-145)
[2020-10-03] MEDS: Acetaminophen 325 MG Tablet 650 MG PO (09:31)
[2020-10-03] MEDS: Escitalopram Oxalate 10 MG Tablet 5 MG PO (09:31)
[2020-10-03] MEDS: Allopurinol 100 MG Tablet PO (09:32)
[2020-10-03] MEDS: Carvedilol 12.5 MG Tablet PO (09:32)
[2020-10-03] MEDS: Potassium Chloride Oral Tablet 20 MEQ 40 MEQ PO (09:32)
[2020-10-03] MEDS: Torsemide 100 MG Tablet 50 MG PO (09:32)
[2020-10-03] MEDS: Aspirin 81 MG TAB.CHEW PO (09:32)
[2020-10-03] MEDS: amLODIPine 10 MG Tablet PO (09:32)
[2020-10-03] MEDS: APIXABAN 5 MG TABLET PO (09:32)
--- NOTE | 2020-10-03 10:07 | DCINST_ITS ---
Discharge Instructions Diet Discharge Diet: 2000 Calorie Control Diet and 6 Cup Fluid Restriction Dressing / Incision Call your doctor if you observe: Fever of 101 or Higher and Shortness of breath Follow Up Care Test Results: Test results from this visit will be discussed in further detail at your follow-up appointment, if applicable. Discharge Plan Admission Admit Date/Time: 10/02/20 02:34 Attending Provider: Cipriano Baldwin Primary Care Provider: Page Sutton LOCKSTITCH COLLAR SETTER Instructions Patient Instructions: ED Chest Pain, Noncardiac Discharge Orders/Prescriptions Prescriptions: New acetaminophen [Tylenol] 325 mg Tablet 650 mg PO Q6H PRN PRN (Reason: Pain 1-10 Or Fever) Qty: 0 RF: 0 Continued torsemide 100 mg tablet 50 mg PO BID RF: 0 melatonin 5 mg tablet 5 mg PO HS PRN (Reason: Sleep) RF: 0 aspirin 81 MG tablet,chewable 81 mg PO DAILY@0800 RF: 0 atorvastatin 80 MG tablet 80 mg PO QHS RF: 0 apixaban 5 MG tablet 5 mg PO BID RF: 0 insulin glargine U-300 conc 300 unit/mL (1.5 mL) insulin pen 18 unit SC BREAKFAST RF: 0 amlodipine 10 MG tablet 10 mg PO DAILY Qty: 30 RF: 0 carvedilol 12.5 mg tablet 12.5 mg PO BID RF: 0 allopurinol 100 mg tablet 100 mg PO DAILY RF: 0 hydralazine 100 mg tablet 100 mg PO TID RF: 0 gabapentin 100 mg capsule 100 mg PO TID RF: 0 insulin aspart U-100 [Novolog Flexpen U-100 Insulin] 100 unit/mL (3 mL) insulin pen 5 unit SUBCUT LUNCH RF: 0 insulin aspart U-100 [Novolog Flexpen U-100 Insulin] 100 unit/mL (3 mL) insulin pen 5 unit SUBCUT DINNER RF: 0 escitalopram oxalate [Lexapro] 5 mg Tablet 5 mg PO DAILY RF: 0 Referrals / Follow Up: Pedro Luis Srivastava LOCKSTITCH COLLAR SETTER, LOCKSTITCH COLLAR SETTER-C [Nurse Practitioner] - Within 2 Weeks Page Sutton NP, LOCKSTITCH COLLAR SETTER-C [Primary Care Provider] - Within 1 Week Disposition Disposition (needs filled in before D/C Order can be placed): Home Health Service
--- NOTE | 2020-10-03 10:13 | DS.PCM_ITS ---
Providers Date of Admission: 10/02/20 Primary Care Physician: TERESA Mas Reason For Visit: ACUTE EXACERBATION OF HEART FAILURE Diagnosis Discharge Diagnosis (1) Heart failure with preserved ejection fraction: Status: Acute Code(s): I50.30 - Unspecified diastolic (congestive) heart failure Qualifiers: Heart failure chronicity: acute on chronic Qualified Code(s): I50.33 - Acute on chronic diastolic (congestive) heart failure (2) Respiratory insufficiency: Status: Acute Code(s): R06.89 - Other abnormalities of breathing Medications at Discharge Home Medications aspirin 81 mg PO DAILY@0800 07/15/18 apixaban 5 mg PO BID 08/04/18 atorvastatin 80 mg PO QHS 08/04/18 torsemide 100 mg tablet 50 mg PO BID tab 04/14/19 amlodipine 10 mg PO DAILY #30 tab 11/28/19 insulin glargine U-300 conc 300 unit/mL (1.5 mL) subcutaneous pen 18 unit SC BREAKFAST ml 08/03/20 melatonin 5 mg tablet 5 mg PO HS PRN 08/03/20 allopurinol 100 mg PO DAILY 09/20/20 carvedilol 12.5 mg PO BID 09/20/20 escitalopram oxalate [Lexapro] 5 mg PO DAILY 09/20/20 gabapentin 100 mg PO TID 09/20/20 hydralazine 100 mg PO TID 09/20/20 insulin aspart U-100 [Novolog Flexpen U-100 Insulin] 5 unit SUBCUT DINNER 09/20/20 insulin aspart U-100 [Novolog Flexpen U-100 Insulin] 5 unit SUBCUT LUNCH 09/20/20 acetaminophen [Tylenol] 650 mg PO Q6H PRN PRN #0 tab 10/03/20 Hospital Course Operations None Procedures None Summary of Care Provided Minutes Spent on Discharge: 33 Hospital Course: The 54-year-old white female presents with shortness of breath. Patient found to have acute heart failure. Patient was diuresed and weight has gone down. Patient will be transition over from IV furosemide back to her oral torsemide. Patient to continue with medications, daily weights and fluid restrictions. Complicating matters is the fact that patient has difficulty with short-term memory. Patient able to recite what was going on with her but cannot name objects has no idea what COVID-19 is. Patient will be going home with home care. Physical Exam Const alert Constitutional Narrative: No she is in the hospital, does not know the name of the hospital. Still has no idea what COVID-19 is. Becomes tearful when she expresses that she does not know what COVID-19 is. When presented a tablet PC, patient states that she plays games on it but cannot tell me what it is. Showed her can of soda and she said it is Pepsi but cannot tell me what it can is. HEENT normocephalic Eyes PERRL Resp normal respiratory effort, no use of accessory muscles and clear to auscultation bilaterally Cardio regular rate, regular rhythm, S1 normal heart sound and S2 normal heart sound GI normal to inspection, nondistended, normoactive bowel sounds, soft to palpation, non-tender and non-distended Weight / BMI Weight Weight: 103.9 kg Body Mass Index (BMI) 42.7 ABG / Lab / Microbiology Data Result Diagrams: 10/03/20 05:35 10/03/20 05:35 Laboratory: Laboratory Results - last 24 hr 10/02/20 10/02/20 10/02/20 10:55 11:37 16:31 WBC RBC Hgb Hct MCV MCH MCHC RDW Std Deviation RDW Coeff of [place] Plt Count MPV Immature Gran % (Auto) Neut % (Auto) Lymph % (Auto) [place] % (Auto) Eos % (Auto) Baso % (Auto) Absolute Neuts (auto) Absolute Lymphs (auto) Nucleated RBC % Sodium Potassium Chloride Carbon Dioxide Anion Gap BUN Creatinine Estim Creat Clear Calc Est GFR (MDRD) Af Amer Est GFR (MDRD) Non-Af BUN/Creatinine Ratio Glucose Calcium COVID-19 (YANI) Not Detected POC Glucose 191 H 131 H 10/02/20 10/03/20 10/03/20 21:30 05:35 05:35 WBC 8.1 RBC 3.12 L Hgb 8.9 L Hct 27.9 L MCV 89.4 MCH 28.5 MCHC 31.9 L RDW Std Deviation 46.4 H RDW Coeff of [place] 14.5 Plt Count 196 MPV 12.0 Immature Gran % (Auto) 1.200 H Neut % (Auto) 73.7 H Lymph % (Auto) 12.6 L [place] % (Auto) 7.5 Eos % (Auto) 4.6 Baso % (Auto) 0.4 Absolute Neuts (auto) 6.0 Absolute Lymphs (auto) 1.02 Nucleated RBC % 0 Sodium 142 Potassium 4.1 Chloride 110 H Carbon Dioxide 22.0 Anion Gap 10 BUN 79 H Creatinine 2.77 H Estim Creat Clear Calc 18.36 Est GFR (MDRD) Af Amer 23 L Est GFR (MDRD) Non-Af 19 L BUN/Creatinine Ratio 28.5 H Glucose 145 H Calcium 7.4 L COVID-19 (YANI) POC Glucose 150 H 10/03/20 06:35 WBC RBC Hgb Hct MCV MCH MCHC RDW Std Deviation RDW Coeff of [place] Plt Count MPV Immature Gran % (Auto) Neut % (Auto) Lymph % (Auto) [place] % (Auto) Eos % (Auto) Baso % (Auto) Absolute Neuts (auto) Absolute Lymphs (auto) Nucleated RBC % Sodium Potassium Chloride Carbon Dioxide Anion Gap BUN Creatinine Estim Creat Clear Calc Est GFR (MDRD) Af Amer Est GFR (MDRD) Non-Af BUN/Creatinine Ratio Glucose Calcium COVID-19 (YANI) POC Glucose 168 H Microbiology: Microbiology 10/02/20 02:00 Mucosa - Nose SARS-CoV-2 Antigen (Rapid) - Final D/C Instructions Discharge Diet: 2000 Calorie Control Diet and 6 Cup Fluid Restriction Call your doctor if you observe: Fever of 101 or Higher and Shortness of breath Meaningful Use Info Meaningful Use Diagnoses (Choose all that apply): CHF CHF TAYLOR/ARB ordered at discharge?: No Reason TAYLOR/ARB not ordered?: Worsening renal disease Documented LVEF (%): 60 Discharge Plan Admission Admit Date/Time: 10/02/20 02:34 Attending Provider: Cipriano Baldwin Primary Care Provider: Page Sutton VISITOR SERVICES REPRESENTATIVE Instructions Patient Instructions: ED Chest Pain, Noncardiac Discharge Orders/Prescriptions Prescriptions: New acetaminophen [Tylenol] 325 mg Tablet 650 mg PO Q6H PRN PRN (Reason: Pain 1-10 Or Fever) Qty: 0 RF: 0 Continued torsemide 100 mg tablet 50 mg PO BID RF: 0 melatonin 5 mg tablet 5 mg PO HS PRN (Reason: Sleep) RF: 0 aspirin 81 MG tablet,chewable 81 mg PO DAILY@0800 RF: 0 atorvastatin 80 MG tablet 80 mg PO QHS RF: 0 apixaban 5 MG tablet 5 mg PO BID RF: 0 insulin glargine U-300 conc 300 unit/mL (1.5 mL) insulin pen 18 unit SC BREAKFAST RF: 0 amlodipine 10 MG tablet 10 mg PO DAILY Qty: 30 RF: 0 carvedilol 12.5 mg tablet 12.5 mg PO BID RF: 0 allopurinol 100 mg tablet 100 mg PO DAILY RF: 0 hydralazine 100 mg tablet 100 mg PO TID RF: 0 gabapentin 100 mg capsule 100 mg PO TID RF: 0 insulin aspart U-100 [Novolog Flexpen U-100 Insulin] 100 unit/mL (3 mL) insulin pen 5 unit SUBCUT LUNCH RF: 0 insulin aspart U-100 [Novolog Flexpen U-100 Insulin] 100 unit/mL (3 mL) insulin pen 5 unit SUBCUT DINNER RF: 0 escitalopram oxalate [Lexapro] 5 mg Tablet 5 mg PO DAILY RF: 0 Referrals / Follow Up: Pedro Luis Srivastava VISITOR SERVICES REPRESENTATIVE, VISITOR SERVICES REPRESENTATIVE-C [Nurse Practitioner] - 10/19/20 9:00 am Page Sutton NP, VISITOR SERVICES REPRESENTATIVE-C [Primary Care Provider] - Within 1 Week Disposition Disposition (needs filled in before D/C Order can be placed): Home Health Service Charges/Coding Visit Charges Inpatient E&M: 22622 Disch Hosp
--- NOTE | 2020-10-03 10:17 | CASEMGMT ---
SW did let [facility] know pt is going home today. Order placed to resume home health. LA Leary
--- NOTE | 2020-10-03 10:29 | CASEMGMT ---
Pt qualifies for palliative referral per [facility] palliative screening tool and Dr. Baldwin is aware and agreeable to referral. Order placed and [facility] aware as well. CM to follow for any further discharge planning/needs. Cecil ALEJO CM
--- NOTE | 2020-10-03 10:52 | PHA.DC.MR ---
Pharmacy Service has performed discharge medication reconciliation for this patient. The patient's discharge medication list was reviewed for discrepancies and discrepancies were resolved. Home Medications aspirin 81 mg PO DAILY@0800 07/15/18 apixaban 5 mg PO BID 08/04/18 atorvastatin 80 mg PO QHS 08/04/18 torsemide 100 mg tablet 50 mg PO BID tab 04/14/19 amlodipine 10 mg PO DAILY #30 tab 11/28/19 insulin glargine U-300 conc 300 unit/mL (1.5 mL) subcutaneous pen 18 unit SC BREAKFAST ml 08/03/20 melatonin 5 mg tablet 5 mg PO HS PRN 08/03/20 allopurinol 100 mg PO DAILY 09/20/20 carvedilol 12.5 mg PO BID 09/20/20 escitalopram oxalate [Lexapro] 5 mg PO DAILY 09/20/20 gabapentin 100 mg PO TID 09/20/20 hydralazine 100 mg PO TID 09/20/20 insulin aspart U-100 [Novolog Flexpen U-100 Insulin] 5 unit SUBCUT DINNER 09/20/20 insulin aspart U-100 [Novolog Flexpen U-100 Insulin] 5 unit SUBCUT LUNCH 09/20/20 acetaminophen [Tylenol] 650 mg PO Q6H PRN PRN #0 tab 10/03/20
--- NOTE | 2020-10-03 10:54 | CASEMGMT ---
Addendum entered by Akiko Hedrick 10/03/20 11:05: Klely ALEJO attempted to reach pt's sister in regards to oxygen qualification but sister did not answer. CM to follow. Cecil ALEJO CM Original Note: Per Kelly ALEJO, pt qualifies for 2L w/ exertion home oxygen. Per note, pt's sister would like [employer] for [employer]. Referral faxed to [employer] and call to Elaine Ortiz to notify of referral. Cecil ALEJO CM
[2020-10-03 11:30] LABS: Bedside Glucose 163 mg/dL (70-110)
--- NOTE | 2020-10-04 14:10 | CASEMGMT ---
RN CM Discharge F/U Phone Call LACE: 11 Strata: 3 Discharge date: 10/03/20 Call date: 10/04/20 Call time: 1410 Attempted to reach pt without success, message left for pt to call this RN CM back if/when able. SStaten RN CM Admission dx: Acute exac HF
== END 2020-10-03 14:14 | disposition home health service (06) | DRG 291 ==
LOC: ED 02:36 → PCU 02:51
PROVIDERS: Admitting Provider Hospitalist; Emergency Provider Emergency Medicine; PCP Nurse Practitioner Family
DX: I13.0 Hypertensive heart and chronic kidney disease with heart failure and stage 1 through stage 4 chronic kidney disease, or unspecified chronic kidney disease (principal); I50.33 Acute on chronic diastolic (congestive) heart failure; I63.9 Cerebral infarction, unspecified; Z68.42 Body mass index [BMI] 45.0-49.9, adult; N18.4 Chronic kidney disease, stage 4 (severe); Z87.891 Personal history of nicotine dependence; E66.01 Morbid (severe) obesity due to excess calories; I16.0 Hypertensive urgency; I44.0 Atrioventricular block, first degree; E11.65 Type 2 diabetes mellitus with hyperglycemia; I25.10 Atherosclerotic heart disease of native coronary artery without angina pectoris; F32.9 Major depressive disorder, single episode, unspecified; R09.02 Hypoxemia; R06.89 Other abnormalities of breathing; E11.22 Type 2 diabetes mellitus with diabetic chronic kidney disease; I69.311 Memory deficit following cerebral infarction; Z79.02 Long term (current) use of antithrombotics/antiplatelets; Z79.4 Long term (current) use of insulin; Z79.899 Other long term (current) drug therapy
CPT/HCPCS: 36415; 71046; 80048; 82962; 83880; 84484; 85025; 87426; 87635; 93005; 97110; 97162; 97166; 97535; 97802; 99285; U0005; A4216; J1940; U0003

== ENCOUNTER 2021-01-20 13:14 | Inpatient (IN) | payer MEDICARE, MEDICAID, SELFPAY ==
[2021-01-20] VITALS (12 sets, daily range): BP systolic 122–158; BP diastolic 65–84; PULSE 58–74; RESP 16–24; TEMP 36.6–37.6; O2SAT 86–99; BMI 32.7; BMI 39.4
--- NOTE | 2021-01-20 13:21 | ED.RN ---
javier [phone] maira [phone]
--- NOTE | 2021-01-20 13:32 | RAD_ITS ---
HISTORY: cough. TECHNIQUE: XR Chest 1 View. # of images incl. paperwork: 1. COMPARISON: 10/02/2020. FINDINGS: CARDIOMEDIASTINAL STRUCTURES: Cardiac silhouette is again mildly enlarged. Mediastinal contour unchanged with double-lumen right internal jugular central venous catheter tip in the right atrium. LUNGS: Mild linear bibasilar opacities. PLEURA: No pleural effusion or pneumothorax. OSSEOUS STRUCTURES: Unremarkable. RAD/Chest 1 View (Portable) IMPRESSION: Mild bibasilar atelectasis. at 1505 Reported and signed by: Elisha Howard MD Electronically Signed: Elisha Howard MD at 15:04 EDT Tel , Service support ,
--- NOTE | 2021-01-20 13:32 | EKG12_ITS ---
Test Reason : SOB Blood Pressure : / mmHG Vent. Rate : 072 BPM Atrial Rate : 072 BPM P-R Int : 240 ms QRS Dur : 094 ms QT Int : 416 ms P-R-T Axes : 074 006 023 degrees QTc Int : 455 ms Sinus rhythm with 1st degree A-V block Septal infarct , age undetermined Abnormal ECG Confirmed by JAREN REYES, ALTON ([id number]), online content editor CAROLYN GROSS ([id number]) on 01/22/2021 10:57:23 AM Referred By: RENO Confirmed By:ALTON EASTMAN MD
--- NOTE | 2021-01-20 13:33 | EX.ED.DYSGE1 ---
HPI History of Present Illness Chief Complaint: Shortness of Breath Detail of Chief Complaint: Cough and shortness of breath Informant: patient Narrative Narrative: Patient the emergency department via EMS with multiple complaints. Patient's had a cough as well as vomiting for 3 days. Others in the home with similar illness. Patient is unsure if she has had the Covid vaccine and tells me to ask her sister who is not present. Patient has history of chronic kidney disease and currently has a dialysis catheter that is maturing but she is not currently on dialysis. Patient has had low-grade fever as well as nausea and vomiting when she tries to eat or drink. She is on 2 L nasal cannula at all times. Prior similar symptoms: No PFSH PFS Medical History (Updated 01/20/21 @ 15:[address] Cassandra Chandra, ) Acute renal injury due to circulatory failure Anxiety Asthma Atherosclerosis of coronary artery of [place] heart without angina pectoris Bilateral carotid bruits Depression Diabetes Essential hypertension GERD (gastroesophageal reflux disease) Headache History of cholelithiasis History of renal calculi Hyperlipidemia Hypoxia Ischemic cerebrovascular accident (CVA) (04/2018) Kidney disease Morbid obesity Respiratory insufficiency Type 2 diabetes mellitus without complication Home Medications aspirin 81 mg PO DAILY@0800 07/15/18 [History Last Taken 10/01/20] apixaban 5 mg PO BID 08/04/18 [History Last Taken 10/01/20] atorvastatin 80 mg PO QHS 08/04/18 [History Last Taken 10/01/20] torsemide 100 mg tablet 50 mg PO BID tab 04/14/19 [History Last Taken 10/01/20] amlodipine 10 mg PO DAILY #30 tab 11/28/19 [Rx Last Taken 10/01/20] insulin glargine U-300 conc 300 unit/mL (1.5 mL) subcutaneous pen 18 unit SC BREAKFAST ml 08/03/20 [History Last Taken 10/01/20] melatonin 5 mg tablet 5 mg PO HS PRN 08/03/20 [History Last Taken 10/01/20] allopurinol 100 mg PO DAILY 09/20/20 [History Last Taken 10/01/20] carvedilol 12.5 mg PO BID 09/20/20 [History Last Taken 10/01/20] escitalopram oxalate [Lexapro] 5 mg PO DAILY 09/20/20 [History Last Taken 10/01/20] gabapentin 100 mg PO TID 09/20/20 [History Last Taken 10/01/20] hydralazine 100 mg PO TID 09/20/20 [History Last Taken 10/01/20] insulin aspart U-100 [Novolog Flexpen U-100 Insulin] 5 unit SUBCUT DINNER 09/20/20 [History Last Taken 10/01/20] insulin aspart U-100 [Novolog Flexpen U-100 Insulin] 5 unit SUBCUT LUNCH 09/20/20 [History Last Taken 10/01/20] acetaminophen [Tylenol] 650 mg PO Q6H PRN PRN #0 tab 10/03/20 [Rx Last Taken Unknown] Allergy/AdvReac Type Severity Reaction Status Date / Time No Known Allergies Allergy Verified 10/19/20 08:56 Family History Mother Diabetes Heart disease Hypertension Father Hypertension Heart disease Brother Heart disease Hypertension Sister Heart disease Diabetes Surgical History (Updated 01/10/21 @ 13:40 by Salma Austin) History of appendectomy History of History of cholecystectomy History of left heart catheterization Social History Smoking Status: Former smoker alcohol intake: never ROS ROS ED ROS Narrative Generalized weakness Constitutional Constitutional ED: Reports systems reviewed and no addt'l complaints, except as documented; Denies body ache(s), change in weight or chills Eyes Eyes: Denies acute decrease in peripheral vision, change in vision, double vision or loss of vision ENT ENT ED: Reports none; Denies ear pain, lip swelling, loss taste/smell, neck pain, otalgia or sore throat Cardiovascular Cardiovascular: Reports none; Denies abdominal pain, chest pain with activity, leg edema, lightheadedness, palpitations, rapid heart rate or syncope Respiratory/Chest Respiratory/Chest: Reports none, cough and dyspnea; Denies change in mental status, dry cough, hemoptysis, shortness of breath at rest or shortness of breath with exertion Gastrointestinal Gastrointestinal: Reports none, nausea and vomiting; Denies abdominal pain, change in stool character, diarrhea, hematemesis, hematochezia, melena or rectal bleeding Genitourinary Genitourinary ED: Reports none; Denies abdominal discomfort, anuria, dysuria, genital pain or polyuria Musculoskeletal Musculoskeletal: Reports none; Denies arthralgias, back pain, difficulty walking, extremity pain, muscle weakness or myalgias Integumentary Reports none; Denies abscess or rash Neurologic Neurologic: Reports none; Denies abnormal gait, confusion, focal weakness, frequent falls, headache(s), loss of vision, numbness, paresthesias, radicular pain, vertigo or weakness Psychiatric Psychiatric: Reports systems reviewed and no addt'l complaints, except as documented and none; Denies behavioral changes, confusion, difficulty concentrating, hallucinations, suicidal ideation, tactile hallucinations or visual hallucinations Endocrine Endocrinology: Denies none, cold intolerance, excessive sweating, fatigue or heat intolerance Hematologic/Lymphatic Hematologic/Lymphatic: Reports none; Denies anemia, easy bleeding or easy bruising Allergic/Immunologic Allergic/Immunologic ED: Denies as per HPI, none, lip swelling, mouth swelling, throat swelling, tongue swelling or hives EXAM Physical Exam Const Vital Signs: 01/20/21 13:15 01/20/21 13:18 01/20/21 13:19 Temperature 99.7 F H 99.7 F H Temperature Source Oral Oral Pulse Rate 72 72 Respiratory Rate 23 H 24 H Respiratory Effort Short of Breath Respiratory Depth Shallow Respiratory Pattern Irregular Blood Pressure 152/81 H 158/81 H Blood Pressure Mean 104 106 Pulse Ox 86 96 Oxygen Delivery Method Room Air Nasal Cannula Nasal Cannula Oxygen Flow Rate (L/min) 3 3 01/20/21 14:42 01/20/21 15:13 Temperature 97.9 F Temperature Source Temporal Pulse Rate 74 70 Respiratory Rate 16 17 Respiratory Effort Respiratory Depth Respiratory Pattern Blood Pressure 144/84 H 141/76 H Blood Pressure Mean 104 97 Pulse Ox 98 99 Oxygen Delivery Method Nasal Cannula Room Air Oxygen Flow Rate (L/min) 3 Positive well nourished and well developed General Appearance ED: well developed and NAD HEENT Reports TM's clear and moist mucous membranes normocephalic and atraumatic; Negative for trauma or tenderness Tympanic Membrane ED: Yes TM's clear Eyes PERRL and EOMs intact bilaterally General Eye ED: Negative for pale conjunctiva or scleral icterus Neck no lymphadenopathy, supple and no JVD General: Negative for tenderness Chest Wall inspection of chest normal and palpation of chest normal Chest: Negative for tenderness Resp normal respiratory effort and clear to auscultation bilaterally Effort and Inspection: Negative for respiratory distress or pain with movement Auscultation: Negative for rhonchi, wheezes or diminished lung sounds Cardio regular rate, regular rhythm, S1 normal heart sound, S2 normal heart sound and no murmurs Peripheral Pulses: pulses 2+ throughout GI normal to inspection, nondistended, normoactive bowel sounds, soft to palpation, non-tender, non-distended and no masses Back/Spine no CVA tenderness and no thoracic nor lumbar tenderness Extremity normal to inspection General Extremety ED: Negative for edema General Extremity: Negative for edema Neuro oriented x3, CN's II-XII intact bilaterally, no sensory deficits noted and gait normal Sensorium / Orientation: awake, alert, oriented to person, oriented to place and oriented to time Motor Exam: strength 5/5 throughout and strength abnormal Psych mental status grossly normal Skin no rashes or lesions noted and no wounds MDM MDM MDM Narrative Medical decision making narrative: IV line established on arrival. Patient was given Zofran IV. Case discussed with hospitalist will evaluate patient for admission as patient has elevated troponin. Discussed case with cardiology as well and no further treatment indicated at this time. Is unclear if patient have non-ST MT or possibly myocarditis related to COVID-19. Lab Data Attestation: I reviewed the patient's lab results. Labs: Laboratory Results - last 24 hr 01/20/21 01/20/21 01/20/21 14:00 14:00 14:00 WBC 10.7 RBC 4.38 Hgb 12.8 Hct 37.8 MCV 86.3 MCH 29.2 MCHC 33.9 RDW Std Deviation 44.4 H RDW Coeff of [place] 14.2 Plt Count 125 L MPV 13.6 H Immature Gran % (Auto) 0.400 Neut % (Auto) 85.8 H Lymph % (Auto) 4.9 L [place] % (Auto) 8.7 Eos % (Auto) 0.0 Baso % (Auto) 0.2 Absolute Neuts (auto) 9.2 H Absolute Lymphs (auto) 0.53 L Nucleated RBC % 0 Differential Comment SCANNED Sodium 139 Potassium 3.3 L Chloride 99 Carbon Dioxide 30.0 Anion Gap 10 BUN 95 H Creatinine 3.46 H Estim Creat Clear Calc 19.20 Est GFR (MDRD) Af Amer 18 L Est GFR (MDRD) Non-Af 15 L BUN/Creatinine Ratio 27.5 H Glucose 218 H Lactic Acid 1.9 Calcium 8.3 L Troponin I High Sens 990 H* Radiography Chest X-Ray - ED: 1 View Diagnostic Testing: Clinical Impression(s) from Imaging Studies Chest X-Ray 01/20/21 13:32 IMPRESSION: Mild bibasilar atelectasis. at 1505 Reported and signed by: Elisha Howard MD Electronically Signed: Elisha Howard MD at 15:04 EDT Tel , Service support , 1 view chest x-ray obtained interpreted by myself as bibasilar infiltrates. Radiology was in agreement. EKG Initial EKG: Attestation: I personally reviewed and interpreted this EKG as follows: Comments: Sinus rhythm with a ventricular rate of 72 bpm with a first-degree AV block and old septal infarct. Prior EKG tracings: available for review Prior: Unchanged Discharge Plan Triage Chief Complaint: Shortness of Breath ED Provider: Cassandra Chandra Dx/Rx/DC Orders Clinical Impression: Weakness, COVID-19, Acute dyspnea, Elevated troponin Prescriptions: No Action torsemide 100 mg tablet 50 mg PO BID RF: 0 melatonin 5 mg tablet 5 mg PO HS PRN (Reason: Sleep) RF: 0 aspirin 81 MG tablet,chewable 81 mg PO DAILY@0800 RF: 0 atorvastatin 80 MG tablet 80 mg PO QHS RF: 0 apixaban 5 MG tablet 5 mg PO BID RF: 0 insulin glargine U-300 conc 300 unit/mL (1.5 mL) insulin pen 18 unit SC BREAKFAST RF: 0 amlodipine 10 MG tablet 10 mg PO DAILY Qty: 30 RF: 0 carvedilol 12.5 mg tablet 12.5 mg PO BID RF: 0 allopurinol 100 mg tablet 100 mg PO DAILY RF: 0 hydralazine 100 mg tablet 100 mg PO TID RF: 0 gabapentin 100 mg capsule 100 mg PO TID RF: 0 insulin aspart U-100 [Novolog Flexpen U-100 Insulin] 100 unit/mL (3 mL) insulin pen 5 unit SUBCUT LUNCH RF: 0 insulin aspart U-100 [Novolog Flexpen U-100 Insulin] 100 unit/mL (3 mL) insulin pen 5 unit SUBCUT DINNER RF: 0 escitalopram oxalate [Lexapro] 5 mg Tablet 5 mg PO DAILY RF: 0 acetaminophen [Tylenol] 325 mg Tablet 650 mg PO Q6H PRN PRN (Reason: Pain 1-10 Or Fever) Qty: 0 RF: 0 Primary Care Provider: Page Sutton NP Referrals: Page Sutton NP, METHANE GAS COLLECTION SYSTEM OPERATOR-C [Primary Care Provider] - Disposition Disposition: Acute Care Hospital [facility]
[2021-01-20 14:12] LABS: Absolute Lymphocyte Count 0.53 X10^3/uL (0.83-4.51); Absolute Neutrophil Count 9.2 X10^3/uL (2.0-7.7); Basophil# 0.02 X10^3/uL; Basophil% 0.2 % (0-1); Hematocrit 37.8 % (37-47); Hemoglobin 12.8 g/dL (12.0-15.0); Lymphocyte # 0.53 X10^3/ul (0.83-4.51); Lymphocyte % 4.9 % (19-41); Mean Corp Hgb Conc 33.9 g/dL (32-36); Mean Corpuscular Hgb 29.2 pg (27.0-32.0); Mean Corpuscular Volume 86.3 fL (81-99); Mean Platelet Vol. 13.6 fl (6.2-12.0); Monocyte# 0.93 X10^3/uL; Monocyte% 8.7 % (0-10); NRBC Flagged by Analyzer 0 % (0-5); Neutrophil # 9.19 X10^3/uL (2.7-7.7); Neutrophil % 85.8 % (47-70); POSITIVE DIFFERENTIAL YES; Platelet Count 125 K/mm3 (150-450); RBC Distribution Width CV 14.2 % (11.6-14.6); RBC Distribution Width SD 44.4 fl (35.1-43.9); Red Blood Count 4.38 M/mm3 (4.2-5.4); White Blood Count 10.7 K/mm3 (4.4-11.0)
[2021-01-20 14:22] LABS: Differential Indicated SCAN CRITERIA MET
[2021-01-20 14:26] LABS: Anion Gap 10 (5-15); BUN 95 mg/dL (7-18); BUN/Creat Ratio 27.5 RATIO (10-20); Calcium,Total 8.3 mg/dL (8.5-10.1); Chloride 99 mmol/L (98-107); Creatinine, Serum 3.46 mg/dL (0.55-1.02); EST Glomerular Filtration Rate 15 mL/min (>60); Est Glom Filt Rate - Afr Amer 18 mL/min (>60); Glucose 218 mg/dL (74-106); Potassium 3.3 mmol/L (3.5-5.1); Sodium Level 139 mmol/L (136-145); Troponin-I HS 990 pg/mL (3.0-54.0)
[2021-01-20 14:38] LABS: Lactic Acid 1.9 mmol/L (0.4-1.9)
[2021-01-20] MEDS: 0.9% Normal Saline 1,000 ML 1000 ML IV (14:41)
[2021-01-20 14:43] LABS: Differential Comment SCANNED
--- NOTE | 2021-01-20 14:58 | HP.PCM.HOS_ITS ---
HPI - General General Date of Admission: 01/20/21 HPI Narrative ZAYDA ANTOINE, is a 55 F with a PMH as outlined who presents with a complaint of shortness of breath, with nausea, vomiting and a cough for 3 days. She was unsure if she had had the covid vaccine. SHe has a history of CKD and recently had a dialysis catheter placed ~ 1 week ago. She also admitted to a fever, and poor appetite. Patient wears 2L of oxygen at home. Review of systems was otherwise negative. Vitals were BP of 144/84, MS of 74, RR of 16 and temp of 97.9F. She was saturating at 98% on 3L of oxygen. Covid antigen test was positive. CBC showed WBC of 10.7 hemoglobin of 12.8 and platelets of 125. Chemistry showed potassium of 3.3 and sodium of 139 with creatinine of 3.46 with a baseline of around 2.7. Initial troponin was 919. EKG showed no acute ST changes. She has been admitted to be managed for COVID-19 infection as well as non-STEMI. [facility] Medical History (Updated 01/20/21 @ 15:[address] Cassandra Chandra, ) Acute renal injury due to circulatory failure Anxiety Asthma Atherosclerosis of coronary artery of [place] heart without angina pectoris Bilateral carotid bruits Depression Diabetes Essential hypertension GERD (gastroesophageal reflux disease) Headache History of cholelithiasis History of renal calculi Hyperlipidemia Hypoxia Ischemic cerebrovascular accident (CVA) (04/2018) Kidney disease Morbid obesity Respiratory insufficiency Type 2 diabetes mellitus without complication Home Medications aspirin 81 mg PO DAILY@0800 07/15/18 [History Last Taken 01/19/21] apixaban 5 mg PO BID 08/04/18 [History Last Taken 01/19/21] atorvastatin 80 mg PO QHS 08/04/18 [History Last Taken 01/19/21] torsemide 100 mg tablet 50 mg PO BID tab 04/14/19 [History Last Taken 01/19/21] insulin glargine U-300 conc 300 unit/mL (1.5 mL) subcutaneous pen 18 unit SC BREAKFAST ml 08/03/20 [History Last Taken 01/19/21] melatonin 5 mg tablet 5 mg PO HS PRN 08/03/20 [History Last Taken 01/19/21] allopurinol 100 mg PO DAILY 09/20/20 [History Last Taken 01/19/21] carvedilol 12.5 mg PO BID 09/20/20 [History Last Taken 01/19/21] escitalopram oxalate [Lexapro] 5 mg PO DAILY 09/20/20 [History Last Taken ] gabapentin 100 mg PO TID 09/20/20 [History Last Taken 01/19/21] hydralazine 100 mg PO TID 09/20/20 [History Last Taken 01/19/21] insulin aspart U-100 [Novolog Flexpen U-100 Insulin] 5 unit SUBCUT DINNER 09/20/20 [History Last Taken 01/19/21] insulin aspart U-100 [Novolog Flexpen U-100 Insulin] 5 unit SUBCUT LUNCH 09/20/20 [History Last Taken 01/19/21] acetaminophen [Tylenol] 650 mg PO Q6H PRN PRN #0 tab 10/03/20 [Rx Last Taken Unknown] amlodipine 10 mg PO DAILY 01/20/21 [History Last Taken 01/19/21] potassium chloride [K-Dur] 10 meq PO BID 01/20/21 [History Last Taken 01/19/21] Allergy/AdvReac Type Severity Reaction Status Date / Time No Known Allergies Allergy Verified 10/19/20 08:56 Family History Mother Diabetes Heart disease Hypertension Father Hypertension Heart disease Brother Heart disease Hypertension Sister Heart disease Diabetes Surgical History (Updated 01/10/21 @ 13:40 by Salma Austin) History of appendectomy History of History of cholecystectomy History of left heart catheterization Social History Smoking Status: Former smoker alcohol intake: never ROS Constitutional Constitutional: Reports fatigue, malaise and weakness; Denies anorexia, change in weight, chills or fever(s) Eyes Eyes: Denies change in vision Cardiovascular Cardiovascular: Reports chest pain Respiratory/Chest Respiratory/Chest: Reports dyspnea, shortness of breath at rest and shortness of breath with exertion; Denies cough, excessive phlegm production or hemoptysis Gastrointestinal Gastrointestinal: Denies abdominal pain, constipation, diarrhea, dyspepsia, nausea or vomiting Genitourinary Genitourinary: Denies burning urination or dysuria Musculoskeletal Musculoskeletal: Denies arthralgias or back pain Neurologic Neurologic: Denies confusion or focal weakness Vital Signs Vital Signs Vital Signs: 01/20/21 13:15 01/20/21 13:18 01/20/21 13:19 Temperature 99.7 F H 99.7 F H Temperature Source Oral Oral Pulse Rate 72 72 Respiratory Rate 23 H 24 H Respiratory Effort Short of Breath Respiratory Depth Shallow Respiratory Pattern Irregular Blood Pressure 152/81 H 158/81 H Blood Pressure Mean 104 106 Pulse Ox 86 96 Oxygen Delivery Method Room Air Nasal Cannula Nasal Cannula Oxygen Flow Rate (L/min) 3 3 01/20/21 14:42 Temperature 97.9 F Temperature Source Temporal Pulse Rate 74 Respiratory Rate 16 Respiratory Effort Respiratory Depth Respiratory Pattern Blood Pressure 144/84 H Blood Pressure Mean 104 Pulse Ox 98 Oxygen Delivery Method Nasal Cannula Oxygen Flow Rate (L/min) 3 Weight Weight: 221 lb 9.033 oz Body Mass Index (BMI) 32.7 Physical Exam Const alert, oriented x3 and no apparent distress General Appearance: cooperative HEENT normocephalic, head/scalp atraumatic, hearing grossly normal bilaterally and moist oral mucous membranes Eyes PERRL, EOMs intact bilaterally and conjunctivae normal Neck no lymphadenopathy Resp Resp Narrative: diminished breath sounds bibasally, no wheezes, no crackles. on 3L of oxygen by nasal canula. Cardio regular rate, regular rhythm, S1 normal heart sound, S2 normal heart sound and no murmurs GI normal to inspection, nondistended, normoactive bowel sounds, soft to palpation, non-tender and non-distended Extremity normal to inspection, full ROM and no clubbing, cyanosis or edema Peripheral Pulses: Yes pulses 2+ throughout Skin no rashes or lesions noted Neuro oriented x3, CN's II-XII intact bilaterally and moves all extremities Sensorium / Orientation: awake and alert Psych affect normal Results Lab / Micro Data Result Diagrams: 01/20/21 14:00 01/20/21 14:00 Labs: Laboratory Results - last 24 hr 01/20/21 14:00: WBC 10.7, RBC 4.38, Hgb 12.8, Hct 37.8, MCV 86.3, MCH 29.2, MCHC 33.9, RDW Std Deviation 44.4 H, RDW Coeff of [place] 14.2, Plt Count 125 L, MPV 13.6 H, Immature Gran % (Auto) 0.400, Neut % (Auto) 85.8 H, Lymph % (Auto) 4.9 L, [place] % (Auto) 8.7, Eos % (Auto) 0.0, Baso % (Auto) 0.2, Absolute Neuts (auto) 9.2 H, Absolute Lymphs (auto) 0.53 L, Nucleated RBC % 0, Differential Comment SCANNED 01/20/21 14:00: Sodium 139, Potassium 3.3 L, Chloride 99, Carbon Dioxide 30.0, Anion Gap 10, BUN 95 H, Creatinine 3.46 H, Estim Creat Clear Calc 19.20, Est GFR (MDRD) Af Amer 18 L, Est GFR (MDRD) Non-Af 15 L, BUN/Creatinine Ratio 27.5 H, Glucose 218 H, Calcium 8.3 L, Troponin I High Sens 990 H* 01/20/21 14:00: Lactic Acid 1.9 Micro: Microbiology 01/20/21 14:39 Nasal Secretion SARS-CoV-2 Antigen (Rapid) - Final SARS-CoV-2 (COVID 19) Assessment & Plan Assessment/Plan (1) Non-STEMI (non-ST elevated myocardial infarction): (2) COVID: PLAN: #COVID 19 infection * admit to PCU * will start decadron. WIll hold off on remdesivir due to impaired renal function. * on 3L of oxygen; baseline oxygen is 2L * already on eliquis. * patient unvaccinated. * #Nonstemi in the setting of COVID 19 infection * initial troponin was 990. * start on aspirin and plavix. * start high intensity statin. * EKG showed no acute ST changes * order 2D echo * elevated troponins could also be due to myocarditis related to COVID 19 infection * cardiology consulted * on carvedilol. * #CKD IV * troponin is 3.46. Baseline is 2.7 * recently had a dialysis catheter placed one week ago. * #Diabetes mellitus * ISS. Accuchecks ACHS * on lantus 18 units. * DVT prophylaxis: not indicated as she is on eliquis. Reason for being for eliquis is not clear. Code status: full code * patient counseled about full code, DNRCC and DNRCCA. patient says she wants to be intubated and put on a ventilator and have CPR if needed. Patient elects to be full code. * Total face to face time: 16 mins Charges/Coding Visit Charges Inpatient E&M: 03636 Init Hosp L3 Procedures Hospitalists Procedures: 73581 Advncd Care Plan 30 Min
--- NOTE | 2021-01-20 17:24 | NURSING ---
this RN unable to complete admission questions d/t pt now knowing information. Attempted to call patient's sister, June, for information. She did not answer so left voicemail for her to call back.
[2021-01-20 17:25] LABS: Bedside Glucose 193 mg/dL (70-110)
[2021-01-20 17:54] LABS: BNP,B-Type NATRIURETIC PEPTIDE 339.8 pg/mL (0-100)
[2021-01-20 17:57] LABS: CPK Total, Creatine Kinase 110 U/L (26-192); LDH 326 U/L (84-246)
[2021-01-20 18:05] LABS: Fibrinogen 593 mg/dl (203-444)
[2021-01-20 18:32] LABS: Troponin-I HS 1102 pg/mL (3.0-54.0)
[2021-01-20 19:38] LABS: Procalcitonin 0.38 ng/mL (0.00-0.09)
[2021-01-20 22:08] LABS: Troponin-I HS 1000 pg/mL (3.0-54.0)
[2021-01-20] MEDS: hydrALAZINE 50 MG Tablet 100 MG PO (23:22)
[2021-01-20] MEDS: Potassium Chloride Oral Tablet 10 MEQ PO (23:22)
[2021-01-20] MEDS: Gabapentin 100 MG Capsule PO (23:23)
[2021-01-20] MEDS: Atorvastatin Calcium 80 MG Tablet PO (23:23)
[2021-01-20] MEDS: Nystatin Powder 15gm Bottle 1 APPLIC TOPICAL (23:23)
[2021-01-20] MEDS: APIXABAN 5 MG TABLET PO (23:23)
[2021-01-20 23:36] LABS: Bedside Glucose 161 mg/dL (70-110)
[2021-01-21] VITALS (13 sets, daily range): BP systolic 124–164; BP diastolic 55–90; PULSE 57–70; RESP 16–18; TEMP 36.4–36.9; O2SAT 96–99
--- NOTE | 2021-01-21 01:49 | PCS.PANDOC ---
PANDEMIC DOCUMENTATION INITIATED: Date: 11/12/2020 Time: 190
[2021-01-21] MEDS: Acetaminophen 325 MG Tablet 650 MG PO ×2 (02:55→13:05)
[2021-01-21] MEDS: Ondansetron 4 MG/2 ML Vial IV (02:56)
[2021-01-21] MEDS: 0.9% Saline Lock 10 ML Syringe IV (02:59)
--- NOTE | 2021-01-21 05:55 | ECHOD_ITS ---
Reason For Study: DYSPNEA/SOB Procedure This was a 2D Doppler, Color Flow transthoracic echocardiogram. The study was technically difficult. Exam performed portable in patient room. The exam was abbreviated due to the COVID 19 protocol. Left Ventricle Normal LV size. Moderate concentric left ventricular hypertrophy. Left ventricular systolic function is normal. The estimated ejection fraction is 65 %. Stage 1 diastolic dysfunction. No regional wall motion abnormalities noted. Right Ventricle Normal RV size. Normal systolic function. Atria Normal left atrium. Normal right atrium. Tricuspid Valve Normal tricuspid valve. Aortic Valve Trisinus/trileaflet aortic valve. Pulmonic Valve The pulmonic valve is not well visualized. Great Vessels Normal aortic root. Pericardium/Pleural No pericardial effusion. MMode/2D Measurements & Calculations LVIDd: 4.0 cm IVSd: 1.4 cm Ao root diam: 3.3 cm LVIDs: 2.7 cm LVPWd: 1.4 cm RVDd: 3.6 cm FS: 32.3 % LAV(MOD-bp): 37.8 ml LA A4 area: 14.2 cm2 LA dimension(2D): 4.1 cm LAV(MOD-bp) Indexed: 19.2 ml/m2 LAV(MOD-sp2): 34.2 ml LAV(MOD-sp4): 37.5 ml RA A4 area: 17.7 cm2 Time Measurements MV dec time: 0.27 sec Doppler Measurements & Calculations MV E max monica: 69.0 cm/sec Ao V2 max: 112.7 cm/sec LV V1 max: 87.9 cm/sec MV A max monica: 90.4 cm/sec Ao max P.1 mmHg LV V1 max P.1 mmHg MV E/A: 0.76 PA V2 max: 93.9 cm/sec ECHO/Echo Complete Interpretation Summary Normal LV size. Moderate concentric left ventricular hypertrophy. Left ventricular systolic function is normal. The estimated ejection fraction is 65 %. Stage 1 diastolic dysfunction. Ordering Physician: Eboni Polanco Referring Physician: Page Sutton Performed By: Marli Shelley RDCS, RVT
[2021-01-21] MEDS: Gabapentin 100 MG Capsule PO ×3 (06:12→21:05)
[2021-01-21] MEDS: hydrALAZINE 50 MG Tablet 100 MG PO ×3 (06:12→21:05)
[2021-01-21] MEDS: Nystatin Powder 15gm Bottle 1 APPLIC TOPICAL ×3 (06:12→21:06)
[2021-01-21 07:35] LABS: Absolute Lymphocyte Count 0.63 X10^3/uL (0.83-4.51); Basophil# 0.02 X10^3/uL; Basophil% 0.4 % (0-1); Eosinophil# 0.01 X10^3/uL; Eosinophils% 0.2 % (0-5); Hematocrit 35.1 % (37-47); Hemoglobin 11.4 g/dL (12.0-15.0); Lymphocyte # 0.63 X10^3/ul (0.83-4.51); Lymphocyte % 11.8 % (19-41); Mean Corp Hgb Conc 32.5 g/dL (32-36); Mean Corpuscular Hgb 28.3 pg (27.0-32.0); Mean Corpuscular Volume 87.1 fL (81-99); Mean Platelet Vol. 13.3 fl (6.2-12.0); Monocyte# 0.67 X10^3/uL; Monocyte% 12.6 % (0-10); NRBC Flagged by Analyzer 0 % (0-5); Neutrophil # 3.97 X10^3/uL (2.7-7.7); Neutrophil % 74.4 % (47-70); Platelet Count 117 K/mm3 (150-450); RBC Distribution Width CV 14.4 % (11.6-14.6); RBC Distribution Width SD 45.5 fl (35.1-43.9); Red Blood Count 4.03 M/mm3 (4.2-5.4); White Blood Count 5.3 K/mm3 (4.4-11.0)
[2021-01-21 08:16] LABS: ALB/GLOB Ratio 0.6 RATIO (0.9-2.4); AST(SGOT) 38 U/L (15-37); Alanine Aminotransfer ALT/SGPT 29 U/L (13-56); Albumin, Serum 2.4 g/dL (3.2-5.0); Alkaline Phosphatase 76 U/L (45-117); Anion Gap 11 (5-15); BUN 99 mg/dL (7-18); BUN/Creat Ratio 29.3 RATIO (10-20); Calcium,Total 7.7 mg/dL (8.5-10.1); Chloride 100 mmol/L (98-107); Creatinine, Serum 3.38 mg/dL (0.55-1.02); EST Glomerular Filtration Rate 15 mL/min (>60); Est Glom Filt Rate - Afr Amer 18 mL/min (>60); Estimated Creatinine Clearance 14.87 ml/min; Globulin 3.8 g/dL (2.2-4.2); Glucose 173 mg/dL (74-106); Potassium 3.3 mmol/L (3.5-5.1); Protein, Total 6.2 g/dL (6.4-8.2); Sodium Level 138 mmol/L (136-145)
--- NOTE | 2021-01-21 08:38 | CON.PCM.CA_ITS ---
Assessment & Plan Assessment/Plan (1) Non-STEMI (non-ST elevated myocardial infarction): PLAN: She does have evidence of a non-ST elevation myocardial infarction in the face of the COVID-19 infection. At this point in time the patient will be managed expectantly. An echocardiogram will be performed for risk stratifi cation. * Though her cardiac enzyme pattern remains flat, at some point post Covid infection she may need reevaluation of her coronary anatomy. The pattern does not have a rise and fall and is likely more suggestive of Covid infection related enzyme elevation which is a type II event * We will keep patient on the aspirin and clopidogrel for now * Continue beta-antoni * Continue high intensity statin (2) History of coronary artery stent placement: PLAN: She does have a history of coronary artery disease status post angioplasty and stent placement as noted above. This may be reevaluated later as an outpatient. (3) Heart failure with preserved ejection fraction: QUALIFIERS: Heart failure chronicity: acute on chronic Qualified Code(s): I50.33 - Acute on chronic diastolic (congestive) heart failure PLAN: She does have a history of heart failure with preserved left ventricular ejection fraction. Would recommend a limited echocardiogram to assess ventricular function. (4) Essential hypertension: PLAN: Her blood pressure is high likely secondary to her chronic renal insufficiency. We will continue her current medical therapy and titrate her medications as appropriate (5) COVID-19: PLAN: She does have a history of COVID-19 infection which is currently ongoing. We will defer to hospitalist for further management and recommendations. HPI Consult Data Date of Consult: 01/21/21 HPI Narrative HPI Narrative: ZAYDA ANTOINE, is a 55 F who presents with generalized weakness as well as shortness of breath to the emergency room. She was noted to have an elevated natruretic peptide as well as cardiac troponin enzymes. She denies any chest pain or paroxysmal nocturnal dyspnea or pedal edema. She recently had a port placed for dialysis due to worsening renal function. She was also diagnosed with COVID-19. It is apparent that she was not vaccinated. She does have a history of hypertension, diabetes mellitus, coronary artery disease status post cardiac catheterization in June 2016 when she presented to an outside hospital with a syncopal episode. The cardiac catheterization demonstrated normal left main coronary artery, a left anterior descending artery that was previously stented with a 70% stenotic lesion, first diagonal branch was noted before that LAD lesion. There was mild diffuse distal LAD disease. The circumflex artery was also a large vessel with a 70% first obtuse marginal branch stenosis, 70% second obtuse marginal branch stenosis in the mid circum flex with 50% stenosis. The right coronary artery also had a patent mid to distal stent in the posterior descending artery with a 60% stenosis. She subsequently underwent angioplasty and stenting of the left anterior descending artery with a drug-eluting stent to the left anterior descending artery as well as the circumflex artery. It turns out that she had a cerebrovascular accident then. She denies any chest pain or shortness breath or paroxysmal nocturnal dyspnea or pedal edema she is been compliant with her medications. Her physical exam demonstrates clear lung [place] regular rate and rhythm no pedal edema her blood pressure is elevated. [facility] Medical History Acute renal injury due to circulatory failure Anxiety Asthma Atherosclerosis of coronary artery of [place] heart without angina pectoris Bilateral carotid bruits Depression Diabetes Essential hypertension GERD (gastroesophageal reflux disease) Headache History of cholelithiasis History of renal calculi Hyperlipidemia Hypoxia Ischemic cerebrovascular accident (CVA) (04/2018) Kidney disease Morbid obesity Respiratory insufficiency Type 2 diabetes mellitus without complication Home Medications aspirin 81 mg PO DAILY@0800 07/15/18 [History Last Taken 01/19/21] apixaban 5 mg PO BID 08/04/18 [History Last Taken 01/19/21] atorvastatin 80 mg PO QHS 08/04/18 [History Last Taken 01/19/21] torsemide 100 mg tablet 50 mg PO BID tab 04/14/19 [History Last Taken 01/19/21] insulin glargine U-300 conc 300 unit/mL (1.5 mL) subcutaneous pen 18 unit SC BREAKFAST ml 08/03/20 [History Last Taken 01/19/21] melatonin 5 mg tablet 5 mg PO HS PRN 08/03/20 [History Last Taken 01/19/21] allopurinol 100 mg PO DAILY 09/20/20 [History Last Taken 01/19/21] carvedilol 12.5 mg PO BID 09/20/20 [History Last Taken 01/19/21] escitalopram oxalate [Lexapro] 5 mg PO DAILY 09/20/20 [History Last Taken 01/19/21] gabapentin 100 mg PO TID 09/20/20 [History Last Taken 01/19/21] hydralazine 100 mg PO TID 09/20/20 [History Last Taken 01/19/21] insulin aspart U-100 [Novolog Flexpen U-100 Insulin] 5 unit SUBCUT DINNER 09/20/20 [History Last Taken 01/19/21] insulin aspart U-100 [Novolog Flexpen U-100 Insulin] 5 unit SUBCUT LUNCH 09/20/20 [History Last Taken 01/19/21] acetaminophen [Tylenol] 650 mg PO Q6H PRN PRN #0 tab 10/03/20 [Rx Last Taken Unknown] amlodipine 10 mg PO DAILY 01/20/21 [History Last Taken 01/19/21] potassium chloride [K-Dur] 10 meq PO BID 01/20/21 [History Last Taken 01/19/21] Allergy/AdvReac Type Severity Reaction Status Date / Time No Known Allergies Allergy Verified 10/19/20 08:56 Family History Mother Diabetes Heart disease Hypertension Father Hypertension Heart disease Brother Heart disease Hypertension Sister Heart disease Diabetes Surgical History History of appendectomy History of History of cholecystectomy History of left heart catheterization Social History Smoking Status: Former smoker alcohol intake: never ROS Constitutional Constitutional: Denies fever(s) or weight loss Eyes Eyes: Reports systems reviewed and no addt'l complaints, except as documented ENT HEENT: Reports systems reviewed and no addt'l complaints, except as documented Cardiovascular Cardiovascular: Denies chest pain at rest, chest pain with activity, dyspnea at rest, dyspnea on exertion, edema, palpitations or paroxysmal nocturnal dyspnea Respiratory/Chest Respiratory/Chest: Denies dyspnea on exertion, productive cough, shortness of breath at rest or shortness of breath with exertion Gastrointestinal Gastrointestinal: Denies change in bowel habits, nausea, vomiting or weight changes Genitourinary Genitourinary: Denies difficulty urinating Musculoskeletal Musculoskeletal: Denies joint stiffness or muscle weakness Integumentary Integumentary: Denies lesions Neurologic Neurologic: Denies dizziness or syncope Psychiatric Psychiatric: Denies anxiety Endocrine Endocrinology: Denies excessive sweating or fatigue Hematologic/Lymphatic Hematologic/Lymphatic: Denies anemia Allergic/Immunologic Allergic/Immunologic: Denies seasonal rhinorrhea Physical Exam Const alert, oriented x3 and no apparent distress General Appearance: cooperative HEENT hearing grossly normal bilaterally Head and Scalp: atraumatic Eyes EOMs intact bilaterally Neck General: normal visual inspection Chest inspection of chest normal and palpation of chest normal Resp normal respiratory effort Auscultation: clear to auscultation bilaterally Cardio regular rate, regular rhythm, S1 normal heart sound and S2 normal heart sound Jugular Venous Distention: JVD GI normal to inspection, nondistended, normoactive bowel sounds Extremity normal capillary refill and no pedal edema Peripheral Pulses: Yes pulses 2+ throughout and femoral pulses present Skin no rashes or lesions noted Neuro oriented x3 and CN's II-XII intact bilaterally Psych Appearance: grossly normal and appropriate Risk Stratification Risk Stratification Applicable: Yes Age >/= 65: No >/= 3 CAD Risk Factors (HTN, HLD, DM, family hx of CAD, or current smoker): Yes Aspirin Use in the Past 7 Days: Yes Severe Angina (>/= episodes in 24 hours): No EKG ST Changes >/= 0.5mm: No Positive Cardiac Marker: Yes HAN Risk Stratification Score: 3 HAN % Risk: 13% Risk Objective Data Vital Signs: Vital Signs Temp Pulse Resp BP Pulse Ox 98.2 F 57 L 18 126/78 H 98 01/21/21 04:13 01/21/21 07:00 01/21/21 04:13 01/21/21 06:12 01/21/21 04:13 Oxygen Flow Rate (L/min) 2 Oxygen Delivery Method Nasal Cannula Weight: 215 lb 13.321 oz Body Mass Index (BMI) 39.4 Intake & Output: Intake and Output for Last 24 Hours 01/19/21 01/20/21 01/21/21 23:59 23:59 23:59 Intake Total 1240 / 1460 320 / 320 Balance 1240 / 1460 320 / 320 Lab / Micro Data Result Diagrams: 01/21/21 06:51 01/21/21 06:51 Labs: Laboratory Results - last 24 hr 01/20/21 14:00: WBC 10.7, RBC 4.38, Hgb 12.8, Hct 37.8, MCV 86.3, MCH 29.2, MCHC 33.9, RDW Std Deviation 44.4 H, RDW Coeff of [place] 14.2, Plt Count 125 L, MPV 13.6 H, Immature Gran % (Auto) 0.400, Neut % (Auto) 85.8 H, Lymph % (Auto) 4.9 L, [place] % (Auto) 8.7, Eos % (Auto) 0.0, Baso % (Auto) 0.2, Absolute Neuts (auto) 9.2 H, Absolute Lymphs (auto) 0.53 L, Nucleated RBC % 0, Differential Comment SCANNED 01/20/21 14:00: Sodium 139, Potassium 3.3 L, Chloride 99, Carbon Dioxide 30.0, Anion Gap 10, BUN 95 H, Creatinine 3.46 H, Estim Creat Clear Calc 19.20, Est GFR (MDRD) Af Amer 18 L, Est GFR (MDRD) Non-Af 15 L, BUN/Creatinine Ratio 27.5 H, Glucose 218 H, Calcium 8.3 L, Troponin I High Sens 990 H* 01/20/21 14:00: Lactic Acid 1.9 01/20/21 16:59: POC Glucose 193 H 01/20/21 17:20: Fibrinogen 593 H 01/20/21 17:20: Lactate Dehydrogenase 326 H, Total Creatine Kinase 110 01/20/21 17:20: B-Natriuretic Peptide 339.8 H 01/20/21 17:20: Procalcitonin 0.38 H 01/20/21 17:20: Troponin I High Sens 1102 H* 01/20/21 20:30: Troponin I High Sens 1000 H* 01/20/21 23:16: POC Glucose 161 H 01/21/21 06:51: WBC 5.3, RBC 4.03 L, Hgb 11.4 L, Hct 35.1 L, MCV 87.1, MCH 28.3, MCHC 32.5, RDW Std Deviation 45.5 H, RDW Coeff of [place] 14.4, Plt Count 117 L, MPV 13.3 H, Immature Gran % (Auto) 0.600, Neut % (Auto) 74.4 H, Lymph % (Auto) 11.8 L, [place] % (Auto) 12.6 H, Eos % (Auto) 0.2, Baso % (Auto) 0.4, Absolute Neuts (auto) 4.0, Absolute Lymphs (auto) 0.63 L, Nucleated RBC % 0 01/21/21 06:51: Sodium 138, Potassium 3.3 L, Chloride 100, Carbon Dioxide 27.0, Anion Gap 11, BUN 99 H, Creatinine 3.38 H, Estim Creat Clear Calc 14.87, Est GFR (MDRD) Af Amer 18 L, Est GFR (MDRD) Non-Af 15 L, BUN/Creatinine Ratio 29.3 H, Glucose 173 H, Calcium 7.7 L, Total Bilirubin 0.60, AST 38 H, ALT 29, Alkaline Phosphatase 76, Total Protein 6.2 L, Albumin 2.4 L, Globulin 3.8, Albumin/Globulin Ratio 0.6 L Micro: Microbiology 01/20/21 14:39 Nasal Secretion SARS-CoV-2 Antigen (Rapid) - Final SARS-CoV-2 (COVID 19) Cardiology Labs/Tests 01/20/21 14:00: WBC 10.7, RBC 4.38, Hgb 12.8, Hct 37.8, MCV 86.3, MCH 29.2, MCHC 33.9, Plt Count 125 L, MPV 13.6 H, Immature Gran % (Auto) 0.400, Neut % (Auto) 85.8 H, Lymph % (Auto) 4.9 L, [place] % (Auto) 8.7, Eos % (Auto) 0.0, Baso % (Auto) 0.2, Absolute Neuts (auto) 9.2 H, Nucleated RBC % 0 01/20/21 14:00: Sodium 139, Potassium 3.3 L, Chloride 99, Carbon Dioxide 30.0, Anion Gap 10, BUN 95 H, Creatinine 3.46 H, Est GFR (MDRD) Af Amer 18 L, Est GFR (MDRD) Non-Af 15 L, BUN/Creatinine Ratio 27.5 H, Glucose 218 H, Calcium 8.3 L 01/20/21 14:00: Lactic Acid 1.9 01/20/21 17:20: B-Natriuretic Peptide 339.8 H 01/21/21 06:51: WBC 5.3, RBC 4.03 L, Hgb 11.4 L, Hct 35.1 L, MCV 87.1, MCH 28.3, MCHC 32.5, Plt Count 117 L, MPV 13.3 H, Immature Gran % (Auto) 0.600, Neut % (Auto) 74.4 H, Lymph % (Auto) 11.8 L, [place] % (Auto) 12.6 H, Eos % (Auto) 0.2, Baso % (Auto) 0.4, Absolute Neuts (auto) 4.0, Nucleated RBC % 0 01/21/21 06:51: Sodium 138, Potassium 3.3 L, Chloride 100, Carbon Dioxide 27.0, Anion Gap 11, BUN 99 H, Creatinine 3.38 H, Est GFR (MDRD) Af Amer 18 L, Est GFR (MDRD) Non-Af 15 L, BUN/Creatinine Ratio 29.3 H, Glucose 173 H, Calcium 7.7 L, Total Bilirubin 0.60 Rhythm: EKG: ECHO: Stress Test: Cardiac Cath: PCI: CT Surgery: Holter monitor: EPS: PPM: CXR: Chest CT Scan: Radiography Diagnostic Testing: Radiology Impression Chest X-Ray 01/20/21 13:32 IMPRESSION: Mild bibasilar atelectasis. at 1505 Reported and signed by: Elisha Howard MD Electronically Signed: Elisha Howard MD at 15:04 EDT Tel , Service support ,
--- NOTE | 2021-01-21 10:10 | CASEMGMT ---
SAPNA WINN called patient for initial transition planning/care coordination assessment. SAPNA WINN introduced self and role at [facility]. Patient is alert and oriented. Patient states that her sister Stephy is caregiver and preferred that this RN CM call her sister to complete assessment. SAPNA CM called sister Stephy. Stephy willing to participate in assessment and is able to answer all questions appropriately. Care providers, pharmacy, and demographics verified. Sister wishes for patient to discharge home with C and prefers [facility]HC as patient has had them in the past. Sister states she has no further needs or concerns at this time. CM to follow for discharge planning needs that may arise. PCP: Lesley REGISTERED NURSE [employer] [facility] Specialists: Alexandro porcelain buildup assistant; Tabatha, sap solution manager consultant; Juan C certification officer Preferred Pharmacy: [facility] [place] Insurance: [facility] dual Prescription Benefit: yes Living Will/HPOA: none LNOK: sister Living Arrangements: Patient lives with sister in a mobile home with 5 steps and railing to enter the home. Per sister, patient is independent for self care. Patient has boyfriend that comes to help patient at times Transportation: sister DME/HHC: Patient has grab bars, rollator, and home oxygen at 2 lpm with portable tanks. Patient has had [facility] in the past. Sister requesting possible aide services and MOW. SAPNA WINN updated SW regarding MOW and possible [facility] referral. Disposition Plan: Patient to discharge home with HHC, family support, and follow-up plans in place. Akiko NICOLE, RN, CM
[2021-01-21] MEDS: APIXABAN 5 MG TABLET PO ×2 (11:20→21:05)
[2021-01-21] MEDS: amLODIPine 10 MG Tablet PO (11:20)
[2021-01-21] MEDS: Allopurinol 100 MG Tablet PO (11:20)
[2021-01-21] MEDS: Aspirin 81 MG TAB.CHEW PO (11:20)
[2021-01-21] MEDS: Potassium Chloride Oral Tablet 10 MEQ PO ×2 (11:20→21:07)
[2021-01-21] MEDS: Escitalopram Oxalate 10 MG Tablet 5 MG PO (11:21)
[2021-01-21] MEDS: dexAMETHasone 10 MG/ML Vial 6 MG IV (11:21)
[2021-01-21] MEDS: Insulin Lispro 100 UNIT/ML INSULN.PEN SC ×3 (11:24→21:33)
[2021-01-21 11:55] LABS: Bedside Glucose 176 mg/dL (70-110)
[2021-01-21] MEDS: Torsemide 100 MG Tablet 50 MG PO ×2 (13:05→17:08)
--- NOTE | 2021-01-21 13:59 | PN.HOSP_ITS ---
Subjective Subjective Patient seen and examined. SHe has no active complaints today. She was on 2L of oxygen which is her baseline. She denies any chest pain or palpitations, dizziness, nausea or vomiting. REview of systems is otherwise negative. Objective Data Objective Data Vital Signs: Vital Signs Temp Pulse Resp BP Pulse Ox 97.8 F 57 L 18 164/82 H 99 01/21/21 10:14 01/21/21 10:14 01/21/21 10:14 01/21/21 10:14 01/21/21 10:14 Oxygen Flow Rate (L/min) 2 Oxygen Delivery Method Nasal Cannula Weight: 215 lb 13.321 oz Body Mass Index (BMI) 39.4 Intake & Output: Intake and Output for Last 24 Hours 01/19/21 01/20/21 01/21/21 23:59 23:59 23:59 Intake Total 1240 / 1460 320 / 320 Balance 1240 / 1460 320 / 320 Lab / Micro Data Result Diagrams: 01/21/21 06:51 01/21/21 06:51 Labs: Laboratory Results - last 24 hr 01/20/21 14:00: WBC 10.7, RBC 4.38, Hgb 12.8, Hct 37.8, MCV 86.3, MCH 29.2, MCHC 33.9, RDW Std Deviation 44.4 H, RDW Coeff of Chichi 14.2, Plt Count 125 L, MPV 13.6 H, Immature Gran % (Auto) 0.400, Neut % (Auto) 85.8 H, Lymph % (Auto) 4.9 L, Mckenzie % (Auto) 8.7, Eos % (Auto) 0.0, Baso % (Auto) 0.2, Absolute Neuts (auto) 9.2 H, Absolute Lymphs (auto) 0.53 L, Nucleated RBC % 0, Differential Comment SCANNED 01/20/21 14:00: Sodium 139, Potassium 3.3 L, Chloride 99, Carbon Dioxide 30.0, Anion Gap 10, BUN 95 H, Creatinine 3.46 H, Estim Creat Clear Calc 19.20, Est GFR (MDRD) Af Amer 18 L, Est GFR (MDRD) Non-Af 15 L, BUN/Creatinine Ratio 27.5 H, Glucose 218 H, Calcium 8.3 L, Troponin I High Sens 990 H* 01/20/21 14:00: Lactic Acid 1.9 01/20/21 16:59: POC Glucose 193 H 01/20/21 17:20: Fibrinogen 593 H 01/20/21 17:20: Lactate Dehydrogenase 326 H, Total Creatine Kinase 110 01/20/21 17:20: B-Natriuretic Peptide 339.8 H 01/20/21 17:20: Procalcitonin 0.38 H 01/20/21 17:20: Troponin I High Sens 1102 H* 01/20/21 20:30: Troponin I High Sens 1000 H* 01/20/21 23:16: POC Glucose 161 H 01/21/21 06:51: WBC 5.3, RBC 4.03 L, Hgb 11.4 L, Hct 35.1 L, MCV 87.1, MCH 28.3, MCHC 32.5, RDW Std Deviation 45.5 H, RDW Coeff of Chichi 14.4, Plt Count 117 L, MPV 13.3 H, Immature Gran % (Auto) 0.600, Neut % (Auto) 74.4 H, Lymph % (Auto) 11.8 L, Mckenzie % (Auto) 12.6 H, Eos % (Auto) 0.2, Baso % (Auto) 0.4, Absolute Neuts (a uto) 4.0, Absolute Lymphs (auto) 0.63 L, Nucleated RBC % 0 01/21/21 06:51: Sodium 138, Potassium 3.3 L, Chloride 100, Carbon Dioxide 27.0, Anion Gap 11, BUN 99 H, Creatinine 3.38 H, Estim Creat Clear Calc 14.87, Est GFR (MDRD) Af Amer 18 L, Est GFR (MDRD) Non-Af 15 L, BUN/Creatinine Ratio 29.3 H, Glucose 173 H, Calcium 7.7 L, Total Bilirubin 0.60, AST 38 H, ALT 29, Alkaline Phosphatase 76, Total Protein 6.2 L, Albumin 2.4 L, Globulin 3.8, Albumin/Globulin Ratio 0.6 L 01/21/21 11:14: POC Glucose 176 H Micro: Microbiology 01/20/21 14:39 Nasal Secretion SARS-CoV-2 Antigen (Rapid) - Final SARS-CoV-2 (COVID 19) Radiography Diagnostic Testing: Radiology Impression Chest X-Ray 01/20/21 13:32 IMPRESSION: Mild bibasilar atelectasis. at 1505 Reported and signed by: Elisha Howard MD Electronically Signed: Elisha Howard MD at 15:04 EDT Tel , Service support , Echocardiogram 01/21/21 05:55 Interpretation Summary Normal LV size. Moderate concentric left ventricular hypertrophy. Left ventricular systolic function is normal. The estimated ejection fraction is 65 %. Stage 1 diastolic dysfunction. ____ Ordering Physician: Eboni Polanco Referring Physician: Page Sutton Performed By: Marli Shelley, LAYNE, RVT Physical Exam Const alert, oriented x3 and no apparent distress General Appearance: cooperative Exam Limitations: no limitations HEENT normocephalic, head/scalp atraumatic, hearing grossly normal bilaterally and moist oral mucous membranes Head and Scalp: normocephalic Eyes PERRL, EOMs intact bilaterally and conjunctivae normal Neck no lymphadenopathy Resp Resp Narrative: diminished breath sounds bibasally, no wheezes, no crackles. on 2L of oxygen by nasal canula. Cardio regular rate, regular rhythm, S1 normal heart sound, S2 normal heart sound and no murmurs GI normal to inspection, nondistended, normoactive bowel sounds, soft to palpation, non-tender and non-distended Extremity normal to inspection, full ROM and no clubbing, cyanosis or edema Peripheral Pulses: Yes pulses 2+ throughout Skin no rashes or lesions noted Neuro oriented x3, CN's II-XII intact bilaterally and moves all extremities Sensorium / Orientation: awake and alert Psych affect normal Assessment & Plan Assessment/Plan (1) Non-STEMI (non-ST elevated myocardial infarction): (2) COVID: PLAN: #COVID 19 infection * on decadron. Remdesivir not started due to her impaired renal function. * on 2L of oxygen * titrate oxygen to maintain sats >90% * breathing treatment with bronchodilators. * patient is unvaccinated * #Nonstemi in the setting of COVID 19 infection * on aspirin and plavix. 2D echo odered and pending * on beta antoni and high intensity statin * cardiology on board. To be managed expectantly for now as this could also be due to covid. * * #CKD IV * troponin is 3.38. She has a dialysis catheter placed about a week ago. * will monitor Cr * * #Diabetes mellitus * ISS. Accuchecks ACHS * on lantus 18 units. * DVT prophylaxis: not indicated as she is on eliquis. Reason for being for eliquis is not clear. Code status: full code * Charges/Coding Visit Charges Inpatient E&M: 38627 Subs Hosp L2
[2021-01-21 17:20] LABS: Bedside Glucose 354 mg/dL (70-110)
[2021-01-21] MEDS: Atorvastatin Calcium 80 MG Tablet PO (21:05)
[2021-01-21 22:26] LABS: Bedside Glucose 460 mg/dL (70-110)
[2021-01-22] VITALS (18 sets, daily range): BP systolic 140–175; BP diastolic 65–80; PULSE 57–65; RESP 16–18; TEMP 36.4–37.1; O2SAT 93–98
[2021-01-22 02:36] LABS: Bedside Glucose 308 mg/dL (70-110)
[2021-01-22] MEDS: 0.9% Saline Lock 10 ML Syringe IV (03:17)
[2021-01-22] MEDS: hydrALAZINE 20 MG/ML Vial 10 MG IV (03:18)
[2021-01-22] MEDS: hydrALAZINE 50 MG Tablet 100 MG PO ×3 (05:21→22:29)
[2021-01-22] MEDS: Nystatin Powder 15gm Bottle 1 APPLIC TOPICAL ×3 (05:21→22:30)
[2021-01-22] MEDS: Gabapentin 100 MG Capsule PO ×3 (05:21→22:29)
[2021-01-22] MEDS: Insulin Lispro 100 UNIT/ML INSULN.PEN SC ×6 (06:29→22:39)
[2021-01-22 06:41] LABS: Bedside Glucose 295 mg/dL (70-110)
[2021-01-22 07:30] LABS: Absolute Lymphocyte Count 0.42 X10^3/uL (0.83-4.51); Basophil# 0.01 X10^3/uL; Basophil% 0.2 % (0-1); Hematocrit 34.9 % (37-47); Hemoglobin 11.7 g/dL (12.0-15.0); Lymphocyte # 0.42 X10^3/ul (0.83-4.51); Lymphocyte % 7.1 % (19-41); Mean Corp Hgb Conc 33.5 g/dL (32-36); Mean Corpuscular Hgb 28.5 pg (27.0-32.0); Mean Corpuscular Volume 84.9 fL (81-99); Mean Platelet Vol. 13.3 fl (6.2-12.0); Monocyte# 0.45 X10^3/uL; Monocyte% 7.6 % (0-10); NRBC Flagged by Analyzer 0 % (0-5); Neutrophil # 5.01 X10^3/uL (2.7-7.7); Neutrophil % 84.3 % (47-70); POSITIVE DIFFERENTIAL YES; Platelet Count 116 K/mm3 (150-450); RBC Distribution Width CV 13.7 % (11.6-14.6); RBC Distribution Width SD 42.5 fl (35.1-43.9); Red Blood Count 4.11 M/mm3 (4.2-5.4); White Blood Count 5.9 K/mm3 (4.4-11.0)
[2021-01-22 07:33] LABS: Differential Indicated SCAN CRITERIA MET
[2021-01-22 07:50] LABS: ALB/GLOB Ratio 0.6 RATIO (0.9-2.4); AST(SGOT) 34 U/L (15-37); Alanine Aminotransfer ALT/SGPT 30 U/L (13-56); Albumin, Serum 2.4 g/dL (3.2-5.0); Alkaline Phosphatase 82 U/L (45-117); Anion Gap 11 (5-15); BUN 100 mg/dL (7-18); BUN/Creat Ratio 29.7 RATIO (10-20); Calcium,Total 7.5 mg/dL (8.5-10.1); Chloride 94 mmol/L (98-107); Creatinine, Serum 3.37 mg/dL (0.55-1.02); EST Glomerular Filtration Rate 15 mL/min (>60); Est Glom Filt Rate - Afr Amer 18 mL/min (>60); Estimated Creatinine Clearance 14.92 ml/min; Globulin 3.8 g/dL (2.2-4.2); Glucose 306 mg/dL (74-106); Potassium 3.5 mmol/L (3.5-5.1); Protein, Total 6.2 g/dL (6.4-8.2); Sodium Level 131 mmol/L (136-145)
[2021-01-22 08:44] LABS: Differential Comment SCANNED
[2021-01-22] MEDS: Aspirin 81 MG TAB.CHEW PO (09:39)
[2021-01-22] MEDS: Torsemide 100 MG Tablet 50 MG PO ×2 (09:39→17:03)
[2021-01-22] MEDS: APIXABAN 5 MG TABLET PO ×2 (09:39→22:29)
[2021-01-22] MEDS: amLODIPine 10 MG Tablet PO (09:39)
[2021-01-22] MEDS: Allopurinol 100 MG Tablet PO (09:39)
[2021-01-22] MEDS: Potassium Chloride Oral Tablet 10 MEQ PO ×2 (09:39→22:29)
[2021-01-22] MEDS: Escitalopram Oxalate 10 MG Tablet 5 MG PO (09:40)
[2021-01-22] MEDS: dexAMETHasone 10 MG/ML Vial 6 MG IV (09:40)
[2021-01-22] MEDS: Acetaminophen 325 MG Tablet 650 MG PO ×2 (09:49→15:50)
--- NOTE | 2021-01-22 11:00 | NURSING ---
pt up in room with therapy when monitor rang out asystole. poor wave form noted and therapy had light on saying that when pt was standing with walker just zoned out like and became rigid with shaking and only lasted less than a minute. pt unable to follow therapists commands when attempting to have her sit back down pt c/o sánchez still despite tylenol and feeling tired. bp 152/77 and pule 59 on monitor and pt remains domi 90's on ra. arm leads were off at this time and replaced. pt denies any hx seizures. will monitor and talk with
[2021-01-22 11:50] LABS: Bedside Glucose 405 mg/dL (70-110)
[2021-01-22 17:11] LABS: Bedside Glucose 465 mg/dL (70-110)
[2021-01-22 17:45] LABS: Glucose 474 mg/dL (74-106)
--- NOTE | 2021-01-22 18:35 | PN.HOSP_ITS ---
Subjective Subjective Patient was seen and examined today, she is currently on no oxygen, I asked her what her plans were after being discharged, she said she was planning on going home, I do not know if this is feasible I tried to contact her sister who she lives with today, there was no answer and the phone went to voicemail. I talked to cardiology briefly today, they stated they were not going to do any interventional tests on the patient. Objective Data Objective Data Vital Signs: Vital Signs Temp Pulse Resp BP Pulse Ox 98.8 F 62 16 140/65 H 97 01/22/21 14:41 01/22/21 15:48 01/22/21 14:41 01/22/21 15:48 01/22/21 16:15 Oxygen Flow Rate (L/min) 1 Oxygen Delivery Method Room Air Weight: 97.9 kg Body Mass Index (BMI) 39.4 Intake & Output: Intake and Output for Last 24 Hours 01/20/21 01/21/21 01/22/21 23:59 23:59 23:59 Intake Total 1240 / 1460 1160 / 1160 1150 / 1150 Output Total 950 / 950 1800 / 1800 Balance 1240 / 1460 210 / 210 -650 / -650 Lab / Micro Data Result Diagrams: 01/22/21 06:55 01/22/21 17:17 Labs: Laboratory Results - last 24 hr 01/21/21 21:00: POC Glucose 460 H* 01/22/21 02:30: POC Glucose 308 H 01/22/21 06:28: POC Glucose 295 H 01/22/21 06:55: WBC 5.9, RBC 4.11 L, Hgb 11.7 L, Hct 34.9 L, MCV 84.9, MCH 28.5, MCHC 33.5, RDW Std Deviation 42.5, RDW Coeff of Chichi 13.7, Plt Count 116 L, MPV 13.3 H, Immature Gran % (Auto) 0.800, Neut % (Auto) 84.3 H, Lymph % (Auto) 7.1 L , Barber % (Auto) 7.6, Eos % (Auto) 0.0, Baso % (Auto) 0.2, Absolute Neuts (auto) 5.0, Absolute Lymphs (auto) 0.42 L, Nucleated RBC % 0, Differential Comment SCANNED 01/22/21 06:55: Sodium 131 L, Potassium 3.5, Chloride 94 L, Carbon Dioxide 26.0, Anion Gap 11, BUN 100 H, Creatinine 3.37 H, Estim Creat Clear Calc 14.92, Est GFR (MDRD) Af Amer 18 L, Est GFR (MDRD) Non-Af 15 L, BUN/Creatinine Ratio 29.7 H , Glucose 306 H, Calcium 7.5 L, Total Bilirubin 0.50, AST 34, ALT 30, Alkaline Phosphatase 82, Total Protein 6.2 L, Albumin 2.4 L, Globulin 3.8, Albumin/Globulin Ratio 0.6 L 01/22/21 11:31: POC Glucose 405 H 01/22/21 17:00: POC Glucose 465 H* 01/22/21 17:17: Glucose 474 H* Micro: Microbiology 01/20/21 14:00 Blood Culture (Wb) - Anticubital Right Blood Culture - Preliminary No growth in 48 hours. 01/20/21 14:39 Nasal Secretion SARS-CoV-2 Antigen (Rapid) - Final SARS-CoV-2 (COVID 19) Physical Exam Const alert, oriented x3, no apparent distress and healthy appearing General Appearance: cooperative, well kempt and well developed Orientation / Consciousness: awake, oriented to person, oriented to place and oriented to time HEENT normocephalic, head/scalp atraumatic and moist oral mucous membranes Head and Scalp: normocephalic Eyes PERRL, EOMs intact bilaterally and conjunctivae normal Neck nuchal rigidity, supple, no JVD, thyroid normal and no carotid bruits General: trachea midline Resp normal respiratory effort, no retractions, no use of accessory muscles and clear to auscultation bilaterally Auscultation: Negative for rales, rhonchi or wheezes Cardio regular rate, regular rhythm, S1 normal heart sound, S2 normal heart sound, no murmurs, no rub, no gallops and no clicks GI normal to inspection, nondistended, normoactive bowel sounds, soft to palpation, non-tender and non-distended Extremity no clubbing, cyanosis or edema Skin no rashes or lesions noted General Skin Exam: no breakdown Neuro oriented x3, CN's II-XII intact bilaterally, no focal motor deficits and no sensory deficits noted Sensorium / Orientation: awake and alert Speech: speech normal Psych thought process normal and affect normal Assessment & Plan Assessment/Plan (1) COVID-19: PLAN: 1. COVID-19 pneumonia-patient is currently on room air, she remains on Decadron at this time. #2 non-STEMI (type II acute MS)-cardiology does not plan on any intervention at this time, patient is on aspirin and Plavix, a beta-antoni, and a statin. #3 chronic kidney disease stage IV #4 type 2 diabetes-continue to monitor blood sugars #5 coronary artery disease-stable at this time #6 cerebrovascular disease-I feel that it is unlikely the patient will be able to take care of herself at home without the help of her sister, I will need to have a discussion with her sister before the patient is discharged home. #7 generalized debility-patient is being seen by PT and OT, I discussed going to a long-term facility with the patient, she refuses at this time Charges/Coding Visit Charges Inpatient E&M: 72169 Subs Hosp L2
[2021-01-22] MEDS: Atorvastatin Calcium 80 MG Tablet PO (22:29)
[2021-01-22] MEDS: Insulin Lispro 100 UNIT/ML INSULN.PEN 10 UNIT SC (22:58)
[2021-01-22 23:00] LABS: Bedside Glucose 455 mg/dL (70-110)
[2021-01-23] VITALS (11 sets, daily range): BP systolic 137–163; BP diastolic 71–100; PULSE 54–69; RESP 18; TEMP 36.3–36.8; O2SAT 94–97
[2021-01-23] MEDS: hydrALAZINE 50 MG Tablet 100 MG PO ×2 (05:30→14:48)
[2021-01-23] MEDS: Gabapentin 100 MG Capsule PO ×2 (05:30→14:50)
[2021-01-23] MEDS: Nystatin Powder 15gm Bottle 1 APPLIC TOPICAL ×2 (05:32→14:50)
[2021-01-23] MEDS: Insulin Lispro 100 UNIT/ML INSULN.PEN SC ×2 (06:10→12:35)
[2021-01-23 06:20] LABS: Bedside Glucose 287 mg/dL (70-110)
[2021-01-23 06:56] LABS: Absolute Lymphocyte Count 0.61 X10^3/uL (0.83-4.51); Basophil# 0.01 X10^3/uL; Basophil% 0.1 % (0-1); Hemoglobin 12.1 g/dL (12.0-15.0); Lymphocyte # 0.61 X10^3/ul (0.83-4.51); Lymphocyte % 8.5 % (19-41); Mean Corp Hgb Conc 34.6 g/dL (32-36); Mean Corpuscular Hgb 28.5 pg (27.0-32.0); Mean Corpuscular Volume 82.4 fL (81-99); Mean Platelet Vol. 12.9 fl (6.2-12.0); Monocyte# 0.48 X10^3/uL; Monocyte% 6.7 % (0-10); NRBC Flagged by Analyzer 0 % (0-5); Neutrophil # 5.98 X10^3/uL (2.7-7.7); Neutrophil % 83.7 % (47-70); Platelet Count 132 K/mm3 (150-450); RBC Distribution Width CV 13.7 % (11.6-14.6); RBC Distribution Width SD 40.5 fl (35.1-43.9); Red Blood Count 4.25 M/mm3 (4.2-5.4); White Blood Count 7.2 K/mm3 (4.4-11.0)
[2021-01-23 07:29] LABS: ALB/GLOB Ratio 0.6 RATIO (0.9-2.4); AST(SGOT) 27 U/L (15-37); Alanine Aminotransfer ALT/SGPT 29 U/L (13-56); Albumin, Serum 2.5 g/dL (3.2-5.0); Alkaline Phosphatase 80 U/L (45-117); Anion Gap 11 (5-15); BUN 112 mg/dL (7-18); BUN/Creat Ratio 34.3 RATIO (10-20); Chloride 91 mmol/L (98-107); Creatinine, Serum 3.27 mg/dL (0.55-1.02); EST Glomerular Filtration Rate 16 mL/min (>60); Est Glom Filt Rate - Afr Amer 19 mL/min (>60); Estimated Creatinine Clearance 15.37 ml/min; Glucose 268 mg/dL (74-106); Potassium 3.3 mmol/L (3.5-5.1); Protein, Total 6.5 g/dL (6.4-8.2); Sodium Level 129 mmol/L (136-145)
[2021-01-23] MEDS: Potassium Chloride Oral Tablet 10 MEQ PO (09:07)
[2021-01-23] MEDS: amLODIPine 10 MG Tablet PO (09:07)
[2021-01-23] MEDS: Torsemide 100 MG Tablet 50 MG PO (09:07)
[2021-01-23] MEDS: Escitalopram Oxalate 10 MG Tablet 5 MG PO (09:07)
[2021-01-23] MEDS: dexAMETHasone 10 MG/ML Vial 6 MG IV (09:08)
[2021-01-23] MEDS: Allopurinol 100 MG Tablet PO (09:08)
[2021-01-23] MEDS: APIXABAN 5 MG TABLET PO (09:08)
[2021-01-23] MEDS: Aspirin 81 MG TAB.CHEW PO (09:08)
[2021-01-23 09:56] LABS: Bedside Glucose 256 mg/dL (70-110)
--- NOTE | 2021-01-23 10:53 | CASEMGMT ---
RAN called patient's sister, June and a voice mail was left requesting a return call. Patti Law [employer] SEQUEIRA
[2021-01-23 12:00] LABS: Bedside Glucose 343 mg/dL (70-110)
--- NOTE | 2021-01-23 12:22 | CASEMGMT ---
Addendum entered by Akiko Hedrick 01/23/21 15:23: Pt is ready to leave and [facility] state they can do PT/OT for pt, due to the fact that no one else can staff pt, order changed to just PT/OT at this time. Pt has a referral out to [facility] for aide services and has also had [facility] referral faxed. Therapy also recommends a WW and this was faxed to [facility] as pt's oxygen is set up thru them already. Cecil RN CM Addendum entered by Akiko Hedrick 01/23/21 14:40: Call from [facility] and they are unable to staff SN/aide for pt. Cecil RN CM Addendum entered by Akiko Hedrick 01/23/21 14:01: Call from [facility] to [facility] and they are unable to accept pt. Cecil RN CM Addendum entered by Akiko Hedrick 01/23/21 13:47: Referral also faxed to [facility] and [facility] to [facility]. Cecil RN CM Addendum entered by Akiko Hedrick 01/23/21 13:38: Referral faxed to [facility]. Cecil RN CM Addendum entered by Akiko Hedrick 01/23/21 13:31: 1318 Call back from Harriet at [facility] and she now states that they cannot accept pt d/t insurance at this time. This RN CM to work on another [facility] agency for pt, sister states no preference as long as in-network. Cecil RN CM Addendum entered by Akiko Hedrick 01/23/21 13:30: 1300 Call from Harriet at [facility] and she states they can accept pt and will do SOC 01/24/21. Cecil RN CM Original Note: This RN CM spoke with Stephy,pt's sister, and she is ok with pt to go home today with [facility] and states that someone can pick pt up today. June states that they would like [facility] and [facility]'s set up, Miya Law SW aware of [facility] request. June states pt has a concentrator and portable tanks at home thru [facility]. This RN CM will get ahold of [facility] to see what pt's order is for. Referral to Harriet at [facility] and she will call this RN CM back. Order placed for SN, PT/OT, aide. Pt will need ambulatory oxygen testing prior to arrival. SStjason ALEJO CM
--- NOTE | 2021-01-23 12:31 | CASEMGMT ---
Per RN TATUM Akiko Toscano patient's sister, is requesting [facility] [employer] [facility] for patient. SW made a referral to [facility] via their online referral program. Patti SEQUEIRA
[2021-01-23] MEDS: Insulin Lispro 100 UNIT/ML INSULN.PEN 15 UNIT SC (12:35)
--- NOTE | 2021-01-23 15:17 | PCM.DC ---
Discharge Instructions Diet Discharge Diet: 1800 Calorie Control Diet Activity Discharge Activity: Return to Normal Activity Follow Up Care Test Results: Test results from this visit will be discussed in further detail at your follow-up appointment, if applicable. Discharge Plan Admission Admit Date/Time: 01/20/21 15:12 Primary Reason for Your Visit: COVID pneumonia Attending Provider: Bill Wyman Primary Care Provider: Page Sutton NP Consulting Providers: Jalen Romano Instructions Additional Instructions / Restrictions: Quarantine until Feb 06 2021. Use oxygen at 2 liters per min when ambulating Discharge Orders/Prescriptions Prescriptions: New dexamethasone 2 mg tablet 6 mg PO DAILY Qty: 18 RF: 0 nystatin [Nyamyc] 100,000 unit/gram Powder 1 applic topical BID Qty: 15 RF: 0 Continued torsemide 100 mg tablet 50 mg PO BID RF: 0 melatonin 5 mg tablet 5 mg PO HS PRN (Reason: Sleep) RF: 0 aspirin 81 MG tablet,chewable 81 mg PO DAILY@0800 RF: 0 atorvastatin 80 MG tablet 80 mg PO QHS RF: 0 apixaban 5 MG tablet 5 mg PO BID RF: 0 carvedilol 12.5 mg tablet 12.5 mg PO BID RF: 0 allopurinol 100 mg tablet 100 mg PO DAILY RF: 0 hydralazine 100 mg tablet 100 mg PO TID RF: 0 gabapentin 100 mg capsule 100 mg PO TID RF: 0 escitalopram oxalate [Lexapro] 5 mg Tablet 5 mg PO DAILY RF: 0 acetaminophen [Tylenol] 325 mg Tablet 650 mg PO Q6H PRN PRN (Reason: Pain 1-10 Or Fever) Qty: 0 RF: 0 potassium chloride 10 mEq Tablet,Er Particles/Crystals 10 meq PO BID RF: 0 amlodipine 10 MG tablet 10 mg PO DAILY RF: 0 Changed insulin aspart U-100 [Novolog Flexpen U-100 Insulin] 100 unit/mL (3 mL) insulin pen 20 unit SUBCUT TIDCM Qty: 0 RF: 0 Toujeo SoloStar U-300 Insulin 300 unit/mL (1.5 mL) insulin pen 20 unit SC BREAKFAST Qty: 0 RF: 0 Discontinued insulin aspart U-100 [Novolog Flexpen U-100 Insulin] 100 unit/mL (3 mL) insulin pen 5 unit SUBCUT LUNCH RF: 0 Referrals / Follow Up: Lorson,Page [employer] [Primary Care Provider] - See Referral Note (in two weeks) Disposition Disposition (needs filled in before D/C Order can be placed): Home Health Service
--- NOTE | 2021-01-23 15:42 | CASEMGMT ---
RAN had sent a referral to [facility] a few hospital visits ago for patient to be assessed for the waiver program. RAN checked with [facility] to see the status of the referral. RAN was informed [facility] did not get the referral. RAN completed a new referral electronically on [facility]'s website. Patti SEQUEIRA
--- NOTE | 2021-01-23 19:12 | DS.PCM_ITS ---
Providers Date of Admission: 01/20/21 Date of Discharge: 01/23/21 Primary Care Physician: TERESA Mas Consultations 01/20/21 16:39 Consult: Cardiology Routine Consulting Provider: Jalen Romano Reason for Consult: nonstemi EMERGENT Consult: No MD Notified: Yes Date Notified: 01/20/21 Time Notified: 15:16 Method of Notification: Text Reason For Visit: NONSTEMI COVID Diagnosis Discharge Diagnosis (1) COVID-19: Status: Acute Code(s): U07.1 - COVID-19 Plan: 1. 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 #12 chronic use of Eliquis-exact reason unknown Medications at Discharge Home Medications aspirin 81 mg PO DAILY@0800 07/15/18 apixaban 5 mg PO BID 08/04/18 atorvastatin 80 mg PO QHS 08/04/18 torsemide 100 mg tablet 50 mg PO BID tab 04/14/19 melatonin 5 mg tablet 5 mg PO HS PRN 08/03/20 allopurinol 100 mg PO DAILY 09/20/20 carvedilol 12.5 mg PO BID 09/20/20 escitalopram oxalate [Lexapro] 5 mg PO DAILY 09/20/20 gabapentin 100 mg PO TID 09/20/20 hydralazine 100 mg PO TID 09/20/20 acetaminophen [Tylenol] 650 mg PO Q6H PRN PRN #0 tab 10/03/20 amlodipine 10 mg PO DAILY 01/20/21 potassium chloride 10 meq PO BID 01/20/21 Toujeo SoloStar U-300 Insulin 20 unit SC BREAKFAST #0 ml 01/23/21 dexamethasone 6 mg PO DAILY #18 tab 01/25/21 insulin aspart U-100 [Novolog Flexpen U-100 Insulin] 10 unit SUBCUT TIDCM #0 ml 01/25/21 nystatin [Nyamyc] 1 applic TOPICAL BID #0 g 01/25/21 Hospital Course Operations None Procedures 2-D Echocardiogram Summary of Care Provided Minutes Spent on Discharge: 33 Hospital Course: This 55-year-old white female was seen in the emergency room at [facility] with chief complaint of cough and shortness of breath. She also complained of vomiting. Patient was on 2 L of oxygen via nasal cannula at home. Patient has history of chronic kidney disease but she is not undergoing dialysis as yet. Work-up in the emergency room showed the patient to have an elevated troponin, patient's blood glucose was 218 and her potassium was 3.3. Creatinine was 3.46 and BUN was 95. Chest x-ray showed mild bibasilar atelectasis. Patient's Covid antigen test was positive. Patient was admitted to PCU, she was started on Decadron and seen by cardiology, 2D echocardiogram was obtained, cardiology did not feel the patient needed a c ardiac catheterization. Patient was seen by PT and OT due to debility, patient declined temporary placement in half-way facility. On 01/23/2021, patient was seen and examined: On examination she appeared in good health and spirits, she does not appear to be in any distress. Vital signs as documented. Skin warm and dry and without overt rashes. Neck without JVD, thyroid appears normal, trachea is midline, neck is supple. Lungs clear, normal air movement was noted. Heart exam notable for regular rhythm, normal sounds and absence of murmurs, rubs or gallops. Abdomen unremarkable and without evidence of organomegaly, masses, or abdominal aortic enlargement, bowel sounds are present in all 4 quadrants, no abdominal tenderness was noted. Extremities nonedematous, no cyanosis was noted, no clubbing was noted. Neuro: Cranial nerves II through XII are grossly intact, no focal motor deficits were noted, sensation to light touch and pinprick is intact, motor exam 5/5 throughout. Psych: Patient is alert and oriented x3, she does not appear anxious or depressed, she does not appear agitated. Patient appears stable for discharge on 01/23/2021, she was discharged to home. Weight / BMI Weight Weight: 97.9 kg Body Mass Index (BMI) 39.4 ABG / Lab / Microbiology Data Result Diagrams: 01/23/21 06:35 01/23/21 06:35 Laboratory: Laboratory Results - last 24 hr 01/22/21 22:27: POC Glucose 455 H* 01/23/21 06:09: POC Glucose 287 H 01/23/21 06:35: WBC 7.2, RBC 4.25, Hgb 12.1, Hct 35.0 L, MCV 82.4, MCH 28.5, MCHC 34.6, RDW Std Deviation 40.5, RDW Coeff of Chichi 13.7, Plt Count 132 L, MPV 12.9 H, Immature Gran % (Auto) 1.000 H, Neut % (Auto) 83.7 H, Lymph % (Auto) 8.5 L, Caroline % (Auto) 6.7, Eos % (Auto) 0.0, Baso % (Auto) 0.1, Absolute Neuts (auto) 6.0, Absolute Lymphs (auto) 0.61 L, Nucleated RBC % 0 01/23/21 06:35: Sodium 129 L, Potassium 3.3 L, Chloride 91 L, Carbon Dioxide 27.0, Anion Gap 11, BUN 112 H*, Creatinine 3.27 H, Estim Creat Clear Calc 15.37, Est GFR (MDRD) Af Amer 19 L, Est GFR (MDRD) Non-Af 16 L, BUN/Creatinine Ratio 34.3 H, Glucose 268 H, Calcium 8.0 L, Total Bilirubin 0.50, AST 27, ALT 29, Alkaline Phosphatase 80, Total Protein 6.5, Albumin 2.5 L, Globulin 4.0, Albumin/Globulin Ratio 0.6 L 01/23/21 09:06: POC Glucose 256 H 01/23/21 11:43: POC Glucose 343 H Microbiology: Microbiology 01/20/21 14:00 Blood Culture (Wb) - Anticubital Right Blood Culture - Preliminary No growth in 48 hours. 01/20/21 14:39 Nasal Secretion SARS-CoV-2 Antigen (Rapid) - Final SARS-CoV-2 (COVID 19) D/C Instructions Discharge Diet: 1800 Calorie Control Diet Meaningful Use Info Meaningful Use Diagnoses (Choose all that apply): AMI AMI/Post PCI/Angioplasty Aspirin given w/in 24hrs of arrival?: Yes ASA at discharge?: Yes Antiplatelet Therapy at Discharge:: Yes Statins at discharge?: Yes Raymond/ARB at discharge?: No Reason Raymond/ARB not ordered:: Worsening renal disease Beta Ángela at discharge?: Yes Done w/ Acute VT measure.: Yes Documented LVEF (%): 65 Discharge Plan Admission Admit Date/Time: 01/20/21 15:12 Primary Reason for Your Visit: COVID pneumonia Attending Provider: Bill Wyman Primary Care Provider: Page Sutton NP Consulting Providers: Jalen Romano Instructions Additional Instructions / Restrictions: Quarantine until Feb 06 2021. Use oxygen at 2 liters per min when ambulating Discharge Orders/Prescriptions Prescriptions: Continued torsemide 100 mg tablet 50 mg PO BID RF: 0 melatonin 5 mg tablet 5 mg PO HS PRN (Reason: Sleep) RF: 0 aspirin 81 MG tablet,chewable 81 mg PO DAILY@0800 RF: 0 atorvastatin 80 MG tablet 80 mg PO QHS RF: 0 apixaban 5 MG tablet 5 mg PO BID RF: 0 carvedilol 12.5 mg tablet 12.5 mg PO BID RF: 0 allopurinol 100 mg tablet 100 mg PO DAILY RF: 0 hydralazine 100 mg tablet 100 mg PO TID RF: 0 gabapentin 100 mg capsule 100 mg PO TID RF: 0 escitalopram oxalate [Lexapro] 5 mg Tablet 5 mg PO DAILY RF: 0 acetaminophen [Tylenol] 325 mg Tablet 650 mg PO Q6H PRN PRN (Reason: Pain 1-10 Or Fever) Qty: 0 RF: 0 potassium chloride 10 mEq Tablet,Er Particles/Crystals 10 meq PO BID RF: 0 amlodipine 10 MG tablet 10 mg PO DAILY RF: 0 Changed Toujeo SoloStar U-300 Insulin 300 unit/mL (1.5 mL) insulin pen 20 unit SC BREAKFAST Qty: 0 RF: 0 Discontinued insulin aspart U-100 [Novolog Flexpen U-100 Insulin] 100 unit/mL (3 mL) insulin pen 5 unit SUBCUT LUNCH RF: 0 insulin aspart U-100 [Novolog Flexpen U-100 Insulin] 100 unit/mL (3 mL) insulin pen 5 unit SUBCUT DINNER RF: 0 No Action nystatin [Nyamyc] 100,000 unit/gram Powder 1 applic topical BID Qty: 0 RF: 0 dexamethasone 2 mg tablet 6 mg PO DAILY Qty: 18 RF: 0 insulin aspart U-100 [Novolog Flexpen U-100 Insulin] 100 unit/mL (3 mL) insulin pen 10 unit SUBCUT TIDCM Qty: 0 RF: 0 Referrals / Follow Up: Page Sutton NP, [employer] [Primary Care Provider] - See Referral Note (in two weeks) Disposition Disposition (needs filled in before D/C Order can be placed): Home Health Service Charges/Coding Visit Charges Inpatient E&M: 20956 Disch Hosp
--- NOTE | 2021-01-24 14:58 | CASEMGMT ---
SAPNA WINN Discharge Follow-up Phone Call: AMILCAR: Dwayne Strata: 3 Call Date: 01/24/21 Discharge Date: 01/23/21 Time of Call: 1459 Duration: 1 min Admitting Diagnosis: NSTEMI, Covid SAPNA WINN attempted to complete follow-up phone call after recent hospitalization. No answer, voice message left with return contact information.
== END 2021-01-23 16:15 | disposition home health service (06) | DRG 177 ==
LOC: ED 15:21 → PCU 16:07
PROVIDERS: Admitting Provider Student in an Organized Health Care Education/Training Program; Emergency Provider Emergency Medicine; PCP Nurse Practitioner Family; Visit Provider Internal Medicine
DX: U07.1 COVID-19 (principal); J12.82 Pneumonia due to coronavirus disease 2019; I21.A1 Myocardial infarction type 2; I63.9 Cerebral infarction, unspecified; I13.0 Hypertensive heart and chronic kidney disease with heart failure and stage 1 through stage 4 chronic kidney disease, or unspecified chronic kidney disease; N18.4 Chronic kidney disease, stage 4 (severe); I50.22 Chronic systolic (congestive) heart failure; E11.22 Type 2 diabetes mellitus with diabetic chronic kidney disease; I25.10 Atherosclerotic heart disease of native coronary artery without angina pectoris; R53.81 Other malaise; I69.319 Unspecified symptoms and signs involving cognitive functions following cerebral infarction; Z79.4 Long term (current) use of insulin; Z79.02 Long term (current) use of antithrombotics/antiplatelets; Z79.899 Other long term (current) drug therapy; Z87.891 Personal history of nicotine dependence; Z99.81 Dependence on supplemental oxygen; Z95.5 Presence of coronary angioplasty implant and graft
CPT/HCPCS: 36415; 71045; 80048; 80053; 82550; 82947; 82962; 83605; 83615; 83880; 84145; 84484; 85025; 85384; 87040; 87426; 93005; 93306; 97162; 97166; 97530; 97802; 99285; J7030; A4216; J2405

== ENCOUNTER 2021-01-24 20:42 | Observation (INO) | payer MEDICARE, MEDICAID, SELFPAY ==
[2021-01-24 20:42] VITALS: BP 181/79; PULSE 57; RESP 18; TEMP 36.8; O2SAT 92; BMI 45.6
--- NOTE | 2021-01-24 20:49 | ED.RN ---
EMS SAID SHE WAS ORIENTED TO NAME ONLY,BUT PT ABLE TO TELL HER WHOLE DAY ACTIVITY--WENT TO HAVE LUNCH AND UNABLE TO KEEP MY PILLS DOWN AND I BECAME SICK....PT A/OX4, BUT WILL ANSWER AT TIMES LIKE A CHILD. PT STATES HER SISTER,GRANT COY IS A PT IN THE HOSPITAL.PT SPOKE ABOUT WHERE SHE IS LINE OF THE FAMILY AND THAT THERE IS 4 SIBLINGS TOTAL.
[2021-01-24 21:06] VITALS: BP 160/81; PULSE 62; RESP 18
--- NOTE | 2021-01-24 21:17 | RAD_ITS ---
STUDY: X-RAY CHEST REASON FOR EXAM: Female, 55 years old. Cough. TECHNIQUE: Single AP portable view of the chest. COMPARISON: 01/20/2021. FINDINGS: Stable right jugular central venous catheter. The lungs are clear and expanded. There is no demonstrated pleural abnormality. Normal size heart. Normal mediastinum and kristi. Normal visualized pulmonary arteries. Normal visualized aortic arch and descending thoracic aorta. Normal visualized thoracic spine. Normal visualized ribs, clavicles, and shoulders. There is no demonstrated abnormality of the visualized soft tissue structures of the upper abdomen. RAD/Chest 1 View (Portable) IMPRESSION: No acute cardiopulmonary disease. Electronically Signed: Sandeep Ayl DO at 22:04 EDT Tel [phone], Service support ,
--- NOTE | 2021-01-24 21:22 | EKG12_ITS ---
Test Reason : CP Blood Pressure : / mmHG Vent. Rate : 058 BPM Atrial Rate : 058 BPM P-R Int : 192 ms QRS Dur : 094 ms QT Int : 494 ms P-R-T Axes : 051 041 053 degrees QTc Int : 484 ms Sinus bradycardia Nonspecific T wave abnormality Poor R wave progression Abnormal ECG Confirmed by KRISTINA REYES, CORINE ([id number]), sports editor CAROLYN GROSS ([id number]) on 01/25/2021 1:53:40 PM Referred By: ILANA Confirmed By:CORINE ACEVEDO MD
[2021-01-24] MEDS: Morphine 4 MG/ML Syringe IV (21:27)
[2021-01-24] MEDS: Ondansetron 4 MG/2 ML Vial IV (21:27)
[2021-01-24 21:36] LABS: Absolute Lymphocyte Count 0.74 X10^3/uL (0.83-4.51); Absolute Neutrophil Count 7.6 X10^3/uL (2.0-7.7); Basophil# 0.03 X10^3/uL; Basophil% 0.3 % (0-1); Eosinophil# 0.02 X10^3/uL; Eosinophils% 0.2 % (0-5); Hematocrit 37.9 % (37-47); Lymphocyte # 0.74 X10^3/ul (0.83-4.51); Lymphocyte % 7.9 % (19-41); Mean Corp Hgb Conc 34.3 g/dL (32-36); Mean Corpuscular Hgb 28.4 pg (27.0-32.0); Mean Corpuscular Volume 82.8 fL (81-99); Monocyte# 0.76 X10^3/uL; Monocyte% 8.2 % (0-10); NRBC Flagged by Analyzer 0 % (0-5); Neutrophil % 81.6 % (47-70); Platelet Count 148 K/mm3 (150-450); RBC Distribution Width CV 13.9 % (11.6-14.6); RBC Distribution Width SD 41.7 fl (35.1-43.9); Red Blood Count 4.58 M/mm3 (4.2-5.4); White Blood Count 9.3 K/mm3 (4.4-11.0)
[2021-01-24 21:48] LABS: Anion Gap 13 (5-15); BUN 118 mg/dL (7-18); BUN/Creat Ratio 33.7 RATIO (10-20); Calcium,Total 8.1 mg/dL (8.5-10.1); Chloride 96 mmol/L (98-107); EST Glomerular Filtration Rate 14 mL/min (>60); Est Glom Filt Rate - Afr Amer 17 mL/min (>60); Estimated Creatinine Clearance 13.05 ml/min; Glucose 241 mg/dL (74-106); Phosphorus 3.4 mg/dL (2.5-4.9); Potassium 3.3 mmol/L (3.5-5.1); Sodium Level 136 mmol/L (136-145)
[2021-01-24 21:49] LABS: Lactic Acid 2.2 mmol/L (0.4-1.9)
[2021-01-24 22:38] VITALS: BP 159/80
[2021-01-24 22:51] VITALS: BP 159/80; PULSE 56; RESP 28; TEMP 36.7; O2SAT 96
--- NOTE | 2021-01-24 23:11 | EX.ED.DYSGE1 ---
HPI History of Present Illness Chief Complaint: Alt LOC Narrative Narrative: Patient is a 55-year-old female who presents to the hospital with multiple complaints. She was recently seen and admitted for end-stage renal failure and need for dialysis. She also tested positive for Covid on January 20. She states that her sister has Covid as well as her brother and that her sister is in the hospital and her brother with Covid cannot help take care of her. She states she has had generalized weakness with headache and bouts of nausea and vomiting and diarrhea. She states she does not feel like she is caring for herself at home and is having difficulty doing this with her constellation of symptoms and therefore returns to the hospital for repeat evaluation. [facility] Medical History Acute renal injury due to circulatory failure Anxiety Asthma Atherosclerosis of coronary artery of [place] heart without angina pectoris Bilateral carotid bruits Depression Diabetes Essential hypertension GERD (gastroesophageal reflux disease) Headache History of cholelithiasis History of renal calculi Hyperlipidemia Hypoxia Ischemic cerebrovascular accident (CVA) (04/2018) Kidney disease Morbid obesity Respiratory insufficiency Type 2 diabetes mellitus without complication Home Medications aspirin 81 mg PO DAILY@0800 07/15/18 [History Last Taken 01/19/21] apixaban 5 mg PO BID 08/04/18 [History Last Taken 01/19/21] atorvastatin 80 mg PO QHS 08/04/18 [History Last Taken 01/19/21] torsemide 100 mg tablet 50 mg PO BID tab 04/14/19 [History Last Taken 01/19/21] melatonin 5 mg tablet 5 mg PO HS PRN 08/03/20 [History Last Taken 01/19/21] allopurinol 100 mg PO DAILY 09/20/20 [History Last Taken 01/19/21] carvedilol 12.5 mg PO BID 09/20/20 [History Last Taken 01/19/21] escitalopram oxalate [Lexapro] 5 mg PO DAILY 09/20/20 [History Last Taken 01/19/21] gabapentin 100 mg PO TID 09/20/20 [History Last Taken 01/19/21] hydralazine 100 mg PO TID 09/20/20 [History Last Taken 01/19/21] acetaminophen [Tylenol] 650 mg PO Q6H PRN PRN #0 tab 10/03/20 [Rx Last Taken Unknown] amlodipine 10 mg PO DAILY 01/20/21 [History Last Taken 01/19/21] potassium chloride 10 meq PO BID 01/20/21 [History Last Taken 01/19/21] Toujeo SoloStar U-300 Insulin 20 unit SC BREAKFAST #0 ml 01/23/21 [Rx Last Taken 01/19/21] dexamethasone 6 mg PO DAILY #18 tab 01/23/21 [Rx Last Taken Unknown] insulin aspart U-100 [Novolog Flexpen U-100 Insulin] 20 unit SUBCUT TIDCM #0 ml 01/23/21 [Rx Last Taken 01/19/21] Allergy/AdvReac Type Severity Reaction Status Date / Time No Known Allergies Allergy Verified 01/24/21 20:49 Family History Mother Diabetes Heart disease Hypertension Father Hypertension Heart disease Brother Heart disease Hypertension Sister Heart disease Diabetes Surgical History History of appendectomy History of History of cholecystectomy History of left heart catheterization Social History Smoking Status: Former smoker alcohol intake: never ROS ROS ED Constitutional Constitutional ED: Reports chills, fever(s) and subjective ENT ENT ED: Reports sore throat Cardiovascular Cardiovascular: Reports chest pain Respiratory/Chest Respiratory/Chest: Reports cough; Denies dyspnea Gastrointestinal Gastrointestinal: Reports diarrhea, nausea and vomiting; Denies abdominal pain Musculoskeletal Musculoskeletal: Reports myalgias Integumentary Denies rash Neurologic Neurologic: Reports headache(s) and weakness Hematologic/Lymphatic Hematologic/Lymphatic: Reports easy bleeding and easy bruising EXAM Physical Exam Const Vital Signs: 01/24/21 20:42 01/24/21 21:06 01/24/21 22:38 Temperature 98.3 F Temperature Source Oral Pulse Rate 57 L 62 Respiratory Rate 18 18 Blood Pressure 181/79 H 160/81 H 159/80 H Blood Pressure Mean 113 107 106 Pulse Ox 92 Oxygen Delivery Method Room Air Oxygen Flow Rate (L/min) 2 01/24/21 22:51 Temperature 98.0 F Temperature Source Temporal Pulse Rate 56 L Respiratory Rate 28 H Blood Pressure 159/80 H Blood Pressure Mean 106 Pulse Ox 96 Oxygen Delivery Method Room Air Oxygen Flow Rate (L/min) Positive well nourished, well developed and obese General Appearance ED: well developed Nutritional Appearance: obese HEENT Reports dry mucous membranes Mouth ED: Yes dry mucous membranes Mouth: dry mucous membranes Eyes PERRL and EOMs intact bilaterally General Eye ED: Yes pale conjunctiva Neck supple and no JVD Neck Narrative: No meningeal signs Chest Wall Chest Narrative: Patient has a dialysis catheter in her right chest wall with some surrounding ecchymosis but no secondary changes to suggest infection Resp normal respiratory effort Resp Narrative: Breath sounds are diminished throughout but overall clear to auscultation with no signs of distress Cardio regular rate and regular rhythm GI non-tender and non-distended GI Narrative: Bowel sounds are hyperactive but there is no voluntary guarding or rigidity no pulsatile mass Palpation: soft Extremity normal to inspection Neuro oriented x3 and CN's II-XII intact bilaterally Sensorium / Orientation: alert Psych Psych Narrative: Patient has a nervous/anxious affect Skin no rashes or lesions noted Skin Narrative: Skin turgor is mildly increased with ecchymotic lesions to the chest wall around the new dialysis catheter as documented above MDM MDM MDM Narrative Medical decision making narrative: Patient presented to the ER hypertensive but does have a past medical history of malignant hypertension. Otherwise she is in no acute respiratory distress has a soft nonsurgical abdomen and no focal neurologic finding. Her symptoms of headache fatigue muscle aches nausea vomiting diarrhea are all consistent with Covid which chart review reveals she tested positive for on January 20. Her labs show chronic elevation to her creatinine at 3.5 which is near her baseline. Otherwise her potassium magnesium phosphorus showed no clinically significant derangements. We attempted to ambulate the patient but she is unable to stand and is unsteady and will fall without any type of support. At this time she has no one to help care for her at home she is having difficulty ambulating because of of her generalized weakness and therefore do not feel it is safe for her to return home. I discussed the patient that we will not keep her in the hospital until she feels better from her Covid but the main reason to come in would be for physical therapy/Occupational Therapy evaluation and social work consult to discuss rehab placement. Patient states she is agreeable with this. Therefore medicine was contacted and does agree to accept the patient at this time. Lab Data Attestation: I reviewed the patient's lab results. Labs: Laboratory Results - last 24 hr 01/24/21 01/24/21 01/24/21 20:50 20:50 20:50 WBC 9.3 RBC 4.58 Hgb 13.0 Hct 37.9 MCV 82.8 MCH 28.4 MCHC 34.3 RDW Std Deviation 41.7 RDW Coeff of [place] 13.9 Plt Count 148 L MPV 13.0 H Immature Gran % (Auto) 1.800 H Neut % (Auto) 81.6 H Lymph % (Auto) 7.9 L [place] % (Auto) 8.2 Eos % (Auto) 0.2 Baso % (Auto) 0.3 Absolute Neuts (auto) 7.6 Absolute Lymphs (auto) 0.74 L Nucleated RBC % 0 Sodium 136 Potassium 3.3 L Chloride 96 L Carbon Dioxide 27.0 Anion Gap 13 BUN 118 H* Creatinine 3.50 H Estim Creat Clear Calc 13.05 Est GFR (MDRD) Af Amer 17 L Est GFR (MDRD) Non-Af 14 L BUN/Creatinine Ratio 33.7 H Glucose 241 H Lactic Acid 2.2 H* Calcium 8.1 L Phosphorus 3.4 Magnesium 2.0 Radiography Diagnostic Testing: Clinical Impression(s) from Imaging Studies Chest X-Ray 01/24/21 21:17 IMPRESSION: No acute cardiopulmonary disease. Electronically Signed: Sandeep Aly DO at 22:04 EDT Tel [phone], Service support , Discharge Plan Triage Chief Complaint: Alt LOC ED Provider: Adebayo Sharif Dx/Rx/DC Orders Clinical Impression: Generalized weakness, Chronic kidney failure, Inability to walk, COVID-19 Prescriptions: No Action torsemide 100 mg tablet 50 mg PO BID RF: 0 melatonin 5 mg tablet 5 mg PO HS PRN (Reason: Sleep) RF: 0 aspirin 81 MG tablet,chewable 81 mg PO DAILY@0800 RF: 0 atorvastatin 80 MG tablet 80 mg PO QHS RF: 0 apixaban 5 MG tablet 5 mg PO BID RF: 0 carvedilol 12.5 mg tablet 12.5 mg PO BID RF: 0 allopurinol 100 mg tablet 100 mg PO DAILY RF: 0 hydralazine 100 mg tablet 100 mg PO TID RF: 0 gabapentin 100 mg capsule 100 mg PO TID RF: 0 escitalopram oxalate [Lexapro] 5 mg Tablet 5 mg PO DAILY RF: 0 acetaminophen [Tylenol] 325 mg Tablet 650 mg PO Q6H PRN PRN (Reason: Pain 1-10 Or Fever) Qty: 0 RF: 0 potassium chloride 10 mEq Tablet,Er Particles/Crystals 10 meq PO BID RF: 0 amlodipine 10 MG tablet 10 mg PO DAILY RF: 0 dexamethasone 2 mg tablet 6 mg PO DAILY Qty: 18 RF: 0 insulin aspart U-100 [Novolog Flexpen U-100 Insulin] 100 unit/mL (3 mL) insulin pen 20 unit SUBCUT TIDCM Qty: 0 RF: 0 Toujeo SoloStar U-300 Insulin 300 unit/mL (1.5 mL) insulin pen 20 unit SC BREAKFAST Qty: 0 RF: 0 Primary Care Provider: Page Sutton NP Referrals: Page Sutton NP, KIER TENDER-C [Primary Care Provider] - Disposition Disposition: Acute Care Hospital [facility]
[2021-01-24 23:32] VITALS: BP 156/67; PULSE 67; RESP 18; TEMP 36.7; O2SAT 97
--- NOTE | 2021-01-24 23:47 | HP.PCM_ITS ---
Documented by User: TERESA Fragoso 01/25/21 00:17 HPI - General General Date of Admission: 01/24/21 Date of Service: 01/24/21 Chief Complaint: Weakness HPI Narrative ZAYDA ANTOINE, is a 55 F who presents with complaints of debility and weakness. Patient reports that she got discharged from the hospital yesterday after a 4 day stay for CARYN and Covid. Patient states she had been feeling better when she left yesterday however last night threw up her pills. She states she also threw her pills up today at breakfast and lunch. Patient reports being too weak to safely ambulate as she has no help as her sister was recently admitted as well. Patient denies fever, chills, shortness of breath, cough. Patient also reeports both constipation and diarrhea. [facility] Medical History Acute renal injury due to circulatory failure Anxiety Asthma Atherosclerosis of coronary artery of [place] heart without angina pectoris Bilateral carotid bruits Depression Diabetes Essential hypertension GERD (gastroesophageal reflux disease) Headache History of cholelithiasis History of renal calculi Hyperlipidemia Hypoxia Ischemic cerebrovascular accident (CVA) (04/2018) Kidney disease Morbid obesity Respiratory insufficiency Type 2 diabetes mellitus without complication Home Medications aspirin 81 mg PO DAILY@0800 07/15/18 [History Last Taken 01/19/21] apixaban 5 mg PO BID 08/04/18 [History Last Taken 01/19/21] atorvastatin 80 mg PO QHS 08/04/18 [History Last Taken 01/19/21] torsemide 100 mg tablet 50 mg PO BID tab 04/14/19 [History Last Taken 01/19/21] melatonin 5 mg tablet 5 mg PO HS PRN 08/03/20 [History Last Taken 01/19/21] allopurinol 100 mg PO DAILY 09/20/20 [History Last Taken 01/19/21] carvedilol 12.5 mg PO BID 09/20/20 [History Last Taken 01/19/21] escitalopram oxalate [Lexapro] 5 mg PO DAILY 09/20/20 [History Last Taken 01/19/21] gabapentin 100 mg PO TID 09/20/20 [History Last Taken 01/19/21] hydralazine 100 mg PO TID 09/20/20 [History Last Taken 01/19/21] acetaminophen [Tylenol] 650 mg PO Q6H PRN PRN #0 tab 10/03/20 [Rx Last Taken U nknown] amlodipine 10 mg PO DAILY 01/20/21 [History Last Taken 01/19/21] potassium chloride 10 meq PO BID 01/20/21 [History Last Taken 01/19/21] Toujeo SoloStar U-300 Insulin 20 unit SC BREAKFAST #0 ml 01/23/21 [Rx Last Taken 01/19/21] dexamethasone 6 mg PO DAILY #18 tab 01/23/21 [Rx Last Taken Unknown] insulin aspart U-100 [Novolog Flexpen U-100 Insulin] 20 unit SUBCUT TIDCM #0 ml 01/23/21 [Rx Last Taken 01/19/21] Allergy/AdvReac Type Severity Reaction Status Date / Time No Known Allergies Allergy Verified 01/24/21 20:49 Family History Mother Diabetes Heart disease Hypertension Father Hypertension Heart disease Brother Heart disease Hypertension Sister Heart disease Diabetes Surgical History History of appendectomy History of History of cholecystectomy History of left heart catheterization Social History Smoking Status: Former smoker alcohol intake: never ROS Constitutional Constitutional: Reports malaise and weakness; Denies anorexia, chills, fatigue or fever(s) Cardiovascular Cardiovascular: Denies chest pain, edema, palpitations or syncope Respiratory/Chest Respiratory/Chest: Denies cough, shortness of breath at rest, shortness of breath with exertion or wheezing Gastrointestinal Gastrointestinal: Reports constipation, diarrhea, nausea and vomiting; Denies abdominal pain Genitourinary Genitourinary: Denies dysuria Musculoskeletal Musculoskeletal: Denies back pain, extremity pain, joint pain or joint stiffness Integumentary Integumentary: Denies dry skin Neurologic Neurologic: Denies abnormal gait, abnormal speech, confusion or dizziness Psychiatric Psychiatric: Denies anxiety or depression Endocrine Endocrinology: Denies change in body appearance Hematologic/Lymphatic Hematologic/Lymphatic: Denies anemia Vital Signs Vital Signs Vital Signs: 01/24/21 20:42 01/24/21 21:06 01/24/21 22:38 Temperature 98.3 F Temperature Source Oral Pulse Rate 57 L 62 Respiratory Rate 18 18 Blood Pressure 181/79 H 160/81 H 159/80 H Blood Pressure Mean 113 107 106 Pulse Ox 92 Oxygen Delivery Method Room Air Oxygen Flow Rate (L/min) 2 01/24/21 22:51 01/24/21 23:32 Temperature 98.0 F 98.0 F Temperature Source Temporal Temporal Pulse Rate 56 L 67 Respiratory Rate 28 H 18 Blood Pressure 159/80 H 156/67 H Blood Pressure Mean 106 96 Pulse Ox 96 97 Oxygen Delivery Method Room Air Room Air Oxygen Flow Rate (L/min) Weight Weight: 233 lb 11.04 oz Body Mass Index (BMI) 45.6 Physical Exam Const alert, oriented x3 and no apparent distress General Appearance: cooperative HEENT normocephalic and head/scalp atraumatic Eyes conjunctivae normal and no scleral icterus Neck supple General: trachea midline Resp normal respiratory effort and normal air movement Auscultation: diminished lung sounds Cardio regular rate, regular rhythm, S1 normal heart sound, S2 normal heart sound and peripheral pulses 2+ throughout GI normal to inspection, nondistended, normoactive bowel sounds, soft to palpation and non-tender Extremity normal capillary refill and no clubbing, cyanosis or edema General Extremity: no tenderness to palpation of joints or extremities Skin General Skin Exam: no breakdown and turgor normal Lesions: no lesions Rashes: no rashes Neuro oriented x3, moves all extremities, no focal motor deficits and no sensory deficits noted Speech: speech normal Motor Exam: general weakness Psych thought process normal, cooperative and affect normal Appearance: appropriate Results Lab / Micro Data Result Diagrams: 01/24/21 20:50 01/24/21 20:50 Labs: Laboratory Results - last 24 hr 01/24/21 20:50: WBC 9.3, RBC 4.58, Hgb 13.0, Hct 37.9, MCV 82.8, MCH 28.4, MCHC 34.3, RDW Std Deviation 41.7, RDW Coeff of [place] 13.9, Plt Count 148 L, MPV 13.0 H , Immature Gran % (Auto) 1.800 H, Neut % (Auto) 81.6 H, Lymph % (Auto) 7.9 L, [place] % (Auto) 8.2, Eos % (Auto) 0.2, Baso % (Auto) 0.3, Absolute Neuts (auto) 7.6, Absolute Lymphs (auto) 0.74 L, Nucleated RBC % 0 01/24/21 20:50: Sodium 136, Potassium 3.3 L, Chloride 96 L, Carbon Dioxide 27.0, Anion Gap 13, BUN 118 H*, Creatinine 3.50 H, Estim Creat Clear Calc 13.05, Est GFR (MDRD) Af Amer 17 L, Est GFR (MDRD) Non-Af 14 L, BUN/Creatinine Ratio 33.7 H , Glucose 241 H, Calcium 8.1 L, Phosphorus 3.4, Magnesium 2.0 01/24/21 20:50: Lactic Acid 2.2 H* Radiology Impression Chest X-Ray 01/24/21 21:17 IMPRESSION: No acute cardiopulmonary disease. Electronically Signed: Sandeep Aly DO at 22:04 EDT Tel [phone], Service support , Assessment & Plan Assessment/Plan (1) Generalized weakness: (2) Chronic kidney failure: QUALIFIERS: Chronic kidney disease stage: stage 4 (severe) Qualified Code(s): N18.4 - Chronic kidney disease, stage 4 (severe) (3) COVID-19: (4) Debility: PLAN: 1. Debility -Admit to MedSurg -PT/OT to eval and treat -Case management consulted for ECF placement -encourage ambulation and movement in chair/bed -CBC and BMP daily 2.Covid 19 -Continue dexamethasone -Patient is not a candidate for remdesivir due to renal function 3. Nausea and Vomiting -Clear liquid diet -As needed Zofran ordered 4.Chronic Kidney Disease -Patient had dialysis port placed during last admission however has not started dialysis -will consult nephrology -Daily BMP ordered 5. Diabetes Mellitus Type II -Continue home insulin regimen -AC at bedtime blood sugars with sliding scale insulin ordered We will continue all other home medications related to chronic diseases. DVT prophylaxis-chronically anticoagulated with Eliquis This patient was seen by TERESA Fragoso under the supervision of Dr. Solis. Documented by User: Dr. Clint Solis MD 01/25/21 00:27 HPI - General General Date of Admission: 01/24/21 PFS Medical History Acute renal injury due to circulatory failure Anxiety Asthma Atherosclerosis of coronary artery of [place] heart without angina pectoris Bilateral carotid bruits Depression Diabetes Essential hypertension GERD (gastroesophageal reflux disease) Headache History of cholelithiasis History of renal calculi Hyperlipidemia Hypoxia Ischemic cerebrovascular accident (CVA) (04/2018) Kidney disease Morbid obesity Respiratory insufficiency Type 2 diabetes mellitus without complication Home Medications aspirin 81 mg PO DAILY@0800 07/15/18 [History Last Taken 01/19/21] apixaban 5 mg PO BID 08/04/18 [History Last Taken 01/19/21] atorvastatin 80 mg PO QHS 08/04/18 [History Last Taken 01/19/21] torsemide 100 mg tablet 50 mg PO BID tab 04/14/19 [History Last Taken 01/19/21] melatonin 5 mg tablet 5 mg PO HS PRN 08/03/20 [History Last Taken 01/19/21] allopurinol 100 mg PO DAILY 09/20/20 [History Last Taken 01/19/21] carvedilol 12.5 mg PO BID 09/20/20 [History Last Taken 01/19/21] escitalopram oxalate [Lexapro] 5 mg PO DAILY 09/20/20 [History Last Taken 01/19/21] gabapentin 100 mg PO TID 09/20/20 [History Last Taken 01/19/21] hydralazine 100 mg PO TID 09/20/20 [History Last Taken 01/19/21] acetaminophen [Tylenol] 650 mg PO Q6H PRN PRN #0 tab 10/03/20 [Rx Last Taken Unknown] amlodipine 10 mg PO DAILY 01/20/21 [History Last Taken 01/19/21] potassium chloride 10 meq PO BID 01/20/21 [History Last Taken 01/19/21] Jey Villanueva U-300 Insulin 20 unit SC BREAKFAST #0 ml 10/27/21 [Rx Last Taken 01/19/21] dexamethasone 6 mg PO DAILY #18 tab 01/23/21 [Rx Last Taken Unknown] insulin aspart U-100 [Novolog Flexpen U-100 Insulin] 20 unit SUBCUT TIDCM #0 ml 01/23/21 [Rx Last Taken 01/19/21] Allergy/AdvReac Type Severity Reaction Status Date / Time No Known Allergies Allergy Verified 01/24/21 20:49 Family History Mother Diabetes Heart disease Hypertension Father Hypertension Heart disease Brother Heart disease Hypertension Sister Heart disease Diabetes Surgical History History of appendectomy History of History of cholecystectomy History of left heart catheterization Social History Smoking Status: Former smoker alcohol intake: never Results Lab / Micro Data Result Diagrams: 01/24/21 20:50 01/24/21 20:50 Charges/Coding Addendum Addendum: Patient was seen and examined independently. I agree with assessment and plan by Ellen Ayers NP-C Patient 55-year old female with stage IV kidney disease; chronic home oxygen use; and who was recently discharged from the hospital on 01/23/2021 for COVID- 19 infection and elevated troponin returning because of inability to care of se lf. Patient reported that her sister who takes care of her has COVID-19 so there is nobody take care of her at home. Patient also complains of symptoms of nausea and vomiting. She reports both constipation and diarrhea. Physical exam: General: Well-nourished, well-developed. Head: Normocephalic, atraumatic, no tenderness Eyes: PERRLA, EOMI ENT, no trauma, moist mucous membranes, no rhinorrhea Neck: Nontender, full range of motion. CVS: Regular rate and rhythm. S1-S2 present. No murmur, gallop or rub. Respiratory : clear to auscultation bilaterally, chest wall nontender, no wheezing Abdomen: Obese soft, nontender, nondistended, normal bowel sounds, no masses : Deferred Back: Nontender, no CVA tenderness, no midline spinal tenderness, deformities, step-offs Extremities: Nontender full range of motion, no trauma Skin: Normal color, no trauma, abrasions Neuro: Alert, oriented, cranial nerves II through XII grossly intact. Psychiatry: depressed. Not anxious. Debility PT OT to work with patient. Case management consult. COVID-19 infection Continue Decadron Diabetes mellitus with hyperglycemia Continue home basal and prandial insulin Accu-Chek correction scale insulin CKD stage IV Likely of diabetic nephropathy Stable Awaiting dialysis. Morbid Obesity BMI: 45.6 kg/m?. Complicates care. Lifestyle modification recommended. Visit Charges OBSV E&M: [id number] Initial observation care L2
[2021-01-25] VITALS (9 sets, daily range): BP systolic 124–150; BP diastolic 72–82; PULSE 50–58; RESP 16–18; TEMP 36.1–36.6; O2SAT 95–98; BMI 42.8
--- NOTE | 2021-01-25 00:10 | PCS.PANDOC ---
PANDEMIC DOCUMENTATION INITIATED: Date: 01/24/2021 Time: 0008
[2021-01-25] MEDS: MELATONIN 10 MG TABLET 5 MG PO (01:16)
[2021-01-25] MEDS: Insulin Lispro 100 UNIT/ML INSULN.PEN SC ×2 (01:16→17:14)
[2021-01-25] MEDS: Acetaminophen 325 MG Tablet 650 MG PO (01:16)
[2021-01-25 01:23] LABS: Reflex Lactate? Y
[2021-01-25 01:31] LABS: Bedside Glucose 220 mg/dL (70-110)
--- NOTE | 2021-01-25 02:15 | NURSING ---
PT REFUSED LAB DRAW
[2021-01-25] MEDS: Nystatin Powder 15gm Bottle 1 APPLIC TOPICAL ×2 (06:22→10:58)
--- NOTE | 2021-01-25 10:06 | CASEMGMT ---
Social Work Note RAN reviewed chart. Pt with recent admission to [facility] from 01/20/2021-01/23/2021 and at that time, pt directed questions/discharge planning to her sister Stephy. Stephy is currently in [facility], unable to be caregiver for pt at this time. RAN placed a call to pt's sister Stephy Roberts and left message for a return call. SW received call from June, confirming she is in the hospital currently, does not know when she will be discharged from the hospital. Stephy confirms she is primary caregiver for pt. SW spoke with pt about discharge plans, how it appears pt is agreeable to SNF. Stephy asked how long pt will need to be in a usp. RAN explained that it just depends on pt's needs and how long Stephy will need to be in the hospital. RAN informed June that there is only one usp in [facility] that is taking COVID+ pt's and that is [facility] in [place]. Stephy agreeable to [facility], states it is close to home. RAN did place a call to [facility] and spoke with Casie in admissions. Casie states they do accept pt's insurance and states pt's insurance is waiving pre-certs. SW to speak with pt. 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
[2021-01-25] MEDS: hydrALAZINE 50 MG Tablet 100 MG PO ×2 (10:57→15:42)
[2021-01-25] MEDS: Escitalopram Oxalate 10 MG Tablet 5 MG PO (10:57)
[2021-01-25] MEDS: Torsemide 100 MG Tablet 50 MG PO (10:57)
[2021-01-25] MEDS: dexAMETHasone 2 MG TABLET 6 MG PO (10:58)
[2021-01-25] MEDS: APIXABAN 5 MG TABLET PO (10:58)
[2021-01-25] MEDS: Potassium Chloride Oral Tablet 10 MEQ PO (10:58)
[2021-01-25] MEDS: Aspirin 81 MG TAB.CHEW PO (11:00)
[2021-01-25] MEDS: Carvedilol 12.5 MG Tablet PO (11:00)
[2021-01-25] MEDS: Gabapentin 100 MG Capsule PO ×2 (11:01→15:42)
[2021-01-25] MEDS: Allopurinol 100 MG Tablet PO (11:02)
[2021-01-25 11:11] LABS: Bedside Glucose 159 mg/dL (70-110)
[2021-01-25] MEDS: amLODIPine 10 MG Tablet PO (11:13)
--- NOTE | 2021-01-25 11:21 | CASEMGMT ---
SAPNA WINN NOTE: Pt active w/[facility]. TC to [facility] and spoke w/Allegra. She was made aware pt has been admitted OBS to [facility] and d/c plan is to go to [facility] @ discharge. Michele NICOLE RN CM
--- NOTE | 2021-01-25 11:27 | CASEMGMT ---
Social Work Note RAN in to speak with pt. RAN introduced self and role at [facility]. Pt knows her name and that she knows she is at a hospital but states she doens't know which hospital or the date. SW asked pt about going to a care home, pt states she is not going to a care home. Pt states she was told by the doctor that she will be at [facility] through the weekend and states that her brother Pedro Luis will be able to transport her home Thursday. SW asked pt who is going to help her at home since her sister is in a hospital and pt states she live with her boyfriend Rudolph who will be able to assist 20/10. SW informed pt that this worker will call her sister Stephy to confirm discharge plans. Pt states understanding. SW placed another call to pt's sister Stephy and updated her that pt is stating she is returning home with help from her boyfriend Rudolph. Stephy states Rudolph is not able to help as he is currently sick. Stephy states she wouldn't be able to transport pt home as she is currently in the hospital. SW informed June that pt stated her brother Pedro Luis could transport pt home Thursday. Stephy states that that is not true, Pedro Luis needs to stay away from pt since she has COVID. Stephy asked to speak to pt. RAN informed Stephy that this worker can take phone into pt's room and can speak with her and pt at the same time. RAN in to speak with pt. RAN brought in phone with Stephy on the phone. Pt, Stephy and this worker all spoke together. After further discussion, pt is agreeable to going to a care home. RAN explained to both pt and Stephy that the only SNF in [facility] accepting COVID+ pt's is [facility] in [place]. Pt and Stephy agreeable to [facility]. RAN asked pt if she had any Mental Health Diagnosis and treatment and pt states you'll need to ask my sister. RAN asked June about pt's Mental Health History. Stephy states pt has no Mental Health Diagnosis, never been in Mental Health Treatment, and has never been placed in a psychiatric hospital. Per H+P, pt does have diagnosis if Anxiety and Depression and does take Lexapro. RAN then received update from Casie at [facility] that pt's insurance stopped waiving pre-certs 01/21/2021 and she is calling [facility] to determine if they are still waiving pre-certs or not. RAN waiting for call back from Casie at [place] regarding pt's insurance. SW faxed initial referral to Casie at [facility], will fax PT/OT when available. Plan: [facility] pending acceptance and pre-cert Akiko Dennison ODD PIECE CHECKER, MERCHANT PATROLLER
[2021-01-25 12:35] LABS: Bedside Glucose 183 mg/dL (70-110)
--- NOTE | 2021-01-25 13:03 | CASEMGMT ---
Addendum entered by Akiko Dennison 01/25/21 14:27: RAN faxed LOC to [facility]. RNA placed a call to Roya Almendarez and left message letting her know LOC was faxed, asked if LOC results could be obtianed today. R[facility] faxed [facility] to [facility]. Original Note: Social Work Note RAN updated by [facility]ie at [facility] stating they can accept pt since pt has Medicaid secondary, Casie asked for this worker to do the Level of Care under Medicaid. Casie states she will submit for pre-cert under [facility] but since pt is being admitted under Medicaid, LOC to be completed. RAN updated physician, asked for transfer to extended care facility to be completed for Level of Care. RAN will send Level of Care to [facility]. SW will need PT/OT. RAN asked PT/OT to evaluate pt. Plan: [facility] pending Level of Care. Akiko Dennison VICE PRESIDENT OF SOFTWARE DEVELOPMENT, MANAGER MACHINE
--- NOTE | 2021-01-25 13:09 | TREXTCAR_ITS ---
Diet 01/25/21 00:26 Diet: Clear Liquid Food consistency:: N/A - Liquid only Liquid Consistency:: Regular/Thin Is pt able to select menu?: No Advance to: Calorie Controlled Daily Calories: 1800 calorie Routine Orders/Code Status O2 Liters per Minute: 2 O2 Frequency: Continuous Code Status: Full Code Wound(s) RT NECK: Wound Type: DIALYSIS CATH INSERTIONS SITE Therapies Weight Bearing: Full weight bearing Physical Therapy: Eval and Treat Occupational Therapy: Eval and Treat Problem/Diagnosis (1) Generalized weakness: Status: Acute (2) Chronic kidney failure: Status: Chronic (3) COVID-19: Status: Acute (4) Debility: Status: Acute Allergies/Procedures Done in Hospital Allergies No Known Allergies Allergy (Verified 01/24/21 20:49) Procedures: None Type of Care/Length of Stay Estimated LOS: Convalescent Care Less Than 30 days Type of Care Needed: Skilled Rehab Potential: Good Prognosis: Good Additional Orders/Day of Discharge H&P will serve as current which was dated: 01/24/21 Day of Discharge: 01/25/21 Discharge Plan Admission Admit Date/Time: 01/24/21 23:38 Primary Reason for Your Visit: debility, COVID-19 Attending Provider: Bill Wyman Primary Care Provider: Page Sutton NP Instructions Additional Instructions / Restrictions: Fingerstick blood sugars AC and QHS-call attending if blood sugar above 180 or less than 70 Discharge Orders/Prescriptions Prescriptions: New nystatin [Nyamyc] 100,000 unit/gram Powder 1 applic topical BID Qty: 0 RF: 0 Continued torsemide 100 mg tablet 50 mg PO BID RF: 0 melatonin 5 mg tablet 5 mg PO HS PRN (Reason: Sleep) RF: 0 aspirin 81 MG tablet,chewable 81 mg PO DAILY@0800 RF: 0 atorvastatin 80 MG tablet 80 mg PO QHS RF: 0 apixaban 5 MG tablet 5 mg PO BID RF: 0 carvedilol 12.5 mg tablet 12.5 mg PO BID RF: 0 allopurinol 100 mg tablet 100 mg PO DAILY RF: 0 hydralazine 100 mg tablet 100 mg PO TID RF: 0 gabapentin 100 mg capsule 100 mg PO TID RF: 0 escitalopram oxalate [Lexapro] 5 mg Tablet 5 mg PO DAILY RF: 0 acetaminophen [Tylenol] 325 mg Tablet 650 mg PO Q6H PRN PRN (Reason: Pain 1-10 Or Fever) Qty: 0 RF: 0 potassium chloride 10 mEq Tablet,Er Particles/Crystals 10 meq PO BID RF: 0 amlodipine 10 MG tablet 10 mg PO DAILY RF: 0 insulin aspart U-100 [Novolog Flexpen U-100 Insulin] 100 unit/mL (3 mL) insulin pen 20 unit SUBCUT TIDCM Qty: 0 RF: 0 Toujeo SoloStar U-300 Insulin 300 unit/mL (1.5 mL) insulin pen 20 unit SC BREAKFAST Qty: 0 RF: 0 dexamethasone 2 mg tablet 6 mg PO DAILY Qty: 18 RF: 0 Referrals / Follow Up: Page Sutton FITNESS CLUB MANAGER, FITNESS CLUB MANAGER-C [Primary Care Provider] - Disposition Disposition (needs filled in before D/C Order can be placed): [facility] Facility
--- NOTE | 2021-01-25 14:46 | PHA.DC.MR ---
Pharmacy Service has performed discharge medication reconciliation for this patient. The patient's discharge medication list was reviewed for discrepancies and discrepancies were resolved. Home Medications aspirin 81 mg PO DAILY@0800 07/15/18 apixaban 5 mg PO BID 08/04/18 atorvastatin 80 mg PO QHS 08/04/18 torsemide 100 mg tablet 50 mg PO BID tab 04/14/19 melatonin 5 mg tablet 5 mg PO HS PRN 08/03/20 allopurinol 100 mg PO DAILY 09/20/20 carvedilol 12.5 mg PO BID 09/20/20 escitalopram oxalate [Lexapro] 5 mg PO DAILY 09/20/20 gabapentin 100 mg PO TID 09/20/20 hydralazine 100 mg PO TID 09/20/20 acetaminophen [Tylenol] 650 mg PO Q6H PRN PRN #0 tab 10/03/20 amlodipine 10 mg PO DAILY 01/20/21 potassium chloride 10 meq PO BID 01/20/21 Toujeo SoloStar U-300 Insulin 20 unit SC BREAKFAST #0 ml 01/23/21 insulin aspart U-100 [Novolog Flexpen U-100 Insulin] 20 unit SUBCUT TIDCM #0 ml 01/23/21 dexamethasone 6 mg PO DAILY #18 tab 01/25/21 nystatin [Nyamyc] 1 applic TOPICAL BID #0 g 01/25/21
--- NOTE | 2021-01-25 14:53 | CPS ---
started by nursing
[2021-01-25] MEDS: Insulin Lispro 100 UNIT/ML INSULN.PEN 20 UNIT SC (17:13)
[2021-01-25 17:15] LABS: Bedside Glucose 491 mg/dL (70-110)
[2021-01-25 17:49] LABS: Absolute Lymphocyte Count 0.55 X10^3/uL (0.83-4.51); Absolute Neutrophil Count 8.7 X10^3/uL (2.0-7.7); Basophil# 0.05 X10^3/uL; Basophil% 0.5 % (0-1); Eosinophil# 0.02 X10^3/uL; Eosinophils% 0.2 % (0-5); Hematocrit 39.3 % (37-47); Hemoglobin 12.9 g/dL (12.0-15.0); Lymphocyte # 0.55 X10^3/ul (0.83-4.51); Lymphocyte % 5.7 % (19-41); Mean Corp Hgb Conc 32.8 g/dL (32-36); Mean Corpuscular Hgb 28.5 pg (27.0-32.0); Mean Corpuscular Volume 86.8 fL (81-99); Mean Platelet Vol. 13.1 fl (6.2-12.0); Monocyte# 0.12 X10^3/uL; Monocyte% 1.3 % (0-10); NRBC Flagged by Analyzer 0 % (0-5); Neutrophil # 8.67 X10^3/uL (2.7-7.7); Neutrophil % 90.5 % (47-70); POSITIVE DIFFERENTIAL YES; Platelet Count 140 K/mm3 (150-450); RBC Distribution Width CV 14.1 % (11.6-14.6); RBC Distribution Width SD 44.7 fl (35.1-43.9); Red Blood Count 4.53 M/mm3 (4.2-5.4); White Blood Count 9.6 K/mm3 (4.4-11.0)
[2021-01-25 17:58] LABS: Differential Indicated SCAN CRITERIA MET
[2021-01-25 18:17] LABS: Anion Gap 13 (5-15); BUN 116 mg/dL (7-18); BUN/Creat Ratio 29.1 RATIO (10-20); Calcium,Total 7.4 mg/dL (8.5-10.1); Chloride 90 mmol/L (98-107); Creatinine, Serum 3.99 mg/dL (0.55-1.02); EST Glomerular Filtration Rate 12 mL/min (>60); Est Glom Filt Rate - Afr Amer 15 mL/min (>60); Estimated Creatinine Clearance 11.44 ml/min; Glucose 592 mg/dL (74-106); Potassium 4.1 mmol/L (3.5-5.1); Sodium Level 127 mmol/L (136-145)
[2021-01-25 18:20] LABS: Anisocytosis RARE; Platelet Estimate SLT DEC (ADEQ); Red Cell Morphology NORM C+C NORMAL (NORM C&C)
--- NOTE | 2021-01-27 18:28 | DS.PCM_ITS ---
Providers Date of Admission: 01/24/21 Date of Discharge: 01/25/21 Primary Care Physician: TERESA Mas Reason For Visit: DEBILITY,COVID19 Diagnosis Discharge Diagnosis (1) Generalized weakness: Status: Acute Code(s): R53.1 - Weakness (2) Chronic kidney failure: Status: Chronic Code(s): N18.9 - Chronic kidney disease, unspecified Qualifiers: Chronic kidney disease stage: stage 4 (severe) Qualified Code(s): N18.4 - Chronic kidney disease, stage 4 (severe) (3) COVID-19: Status: Acute Code(s): U07.1 - COVID-19 (4) Debility: Status: Acute Code(s): R53.81 - Other malaise Plan: Final diagnosis #1 generalized debility secondary to COVID-19 #2 COVID-19 infection #3 chronic kidney disease stage IV #4 cognitive impairment secondary to cerebrovascular disease #5 cerebrovascular disease #6 type 2 diabetes #7 coronary artery disease #8 chronic systolic congestive heart failure #9 chronic hypoxic respiratory failure-patient uses home O2 Medications at Discharge Home Medications aspirin 81 mg PO DAILY@0800 07/15/18 apixaban 5 mg PO BID 08/04/18 atorvastatin 80 mg PO QHS 08/04/18 torsemide 100 mg tablet 50 mg PO BID tab 04/14/19 melatonin 5 mg tablet 5 mg PO HS PRN 08/03/20 allopurinol 100 mg PO DAILY 09/20/20 carvedilol 12.5 mg PO BID 09/20/20 escitalopram oxalate [Lexapro] 5 mg PO DAILY 09/20/20 gabapentin 100 mg PO TID 09/20/20 hydralazine 100 mg PO TID 09/20/20 acetaminophen [Tylenol] 650 mg PO Q6H PRN PRN #0 tab 10/03/20 amlodipine 10 mg PO DAILY 01/20/21 potassium chloride 10 meq PO BID 01/20/21 Toujeo SoloStar U-300 Insulin 20 unit SC BREAKFAST #0 ml 01/23/21 dexamethasone 6 mg PO DAILY #18 tab 01/25/21 insulin aspart U-100 [Novolog Flexpen U-100 Insulin] 10 unit SUBCUT TIDCM #0 ml 01/25/21 nystatin [Nyamyc] 1 applic TOPICAL BID #0 g 01/25/21 Hospital Course Operations None Procedures None Summary of Care Provided Minutes Spent on Discharge: 30 Hospital Course: This 55-year-old white female was seen in the emergency room at [facility], she had just been discharged from the hospital 1 day ago after being treated for COVID-19, a non-STEMI, and debility. Patient could not care for self at home and there was nobody to assist her so she came to the emergency room. Patient was placed in observation status on MedSurg 3, her home medications were continued and placement was obtained in a shelter facility for inpatient rehab services for the patient. On 01/25/2021, patient was seen and examined: On examination she appeared in good health and spirits, she does not appear to be in any distress. Patient toby ears older than her stated age vital signs as documented. Skin warm and dry and without overt rashes. Neck without JVD, thyroid appears normal, trachea is midline, neck is supple. Lungs clear, normal air movement was noted. Heart exam notable for regular rhythm, normal sounds and absence of murmurs, rubs or gallops. Abdomen unremarkable and without evidence of organomegaly, masses, or abdominal aortic enlargement, bowel sounds are present in all 4 quadrants, no abdominal tenderness was noted. Extremities nonedematous, no cyanosis was noted, no clubbing was noted. Neuro: Cranial nerves II through XII are grossly intact, no focal motor deficits were noted, sensation to light touch and pinprick is intact, motor exam 5/5 throughout. Psych: Patient is alert and oriented x3, she does not appear anxious or depressed, she does not appear agitated. There is some mild cognitive impairment present. On 01/25/2021, patient appeared stable for discharge to a shelter facility for inpatient shelter services. Weight / BMI Weight Weight: 99.6 kg Body Mass Index (BMI) 42.8 ABG / Lab / Microbiology Data Result Diagrams: 01/25/21 17:31 01/25/21 17:31 Meaningful Use Info Meaningful Use Diagnoses (Choose all that apply): None applicable Discharge Plan Admission Admit Date/Time: 01/24/21 23:38 Primary Reason for Your Visit: debility, COVID-19 Attending Provider: Bill Wyman Primary Care Provider: Page Sutton NP Instructions Additional Instructions / Restrictions: Fingerstick blood sugars AC and QHS-call attending if blood sugar above 180 or less than 70 Discharge Orders/Prescriptions Prescriptions: New nystatin [Nyamyc] 100,000 unit/gram Powder 1 applic topical BID Qty: 0 RF: 0 Continued torsemide 100 mg tablet 50 mg PO BID RF: 0 melatonin 5 mg tablet 5 mg PO HS PRN (Reason: Sleep) RF: 0 aspirin 81 MG tablet,chewable 81 mg PO DAILY@0800 RF: 0 atorvastatin 80 MG tablet 80 mg PO QHS RF: 0 apixaban 5 MG tablet 5 mg PO BID RF: 0 carvedilol 12.5 mg tablet 12.5 mg PO BID RF: 0 allopurinol 100 mg tablet 100 mg PO DAILY RF: 0 hydralazine 100 mg tablet 100 mg PO TID RF: 0 gabapentin 100 mg capsule 100 mg PO TID RF: 0 escitalopram oxalate [Lexapro] 5 mg Tablet 5 mg PO DAILY RF: 0 acetaminophen [Tylenol] 325 mg Tablet 650 mg PO Q6H PRN PRN (Reason: Pain 1-10 Or Fever) Qty: 0 RF: 0 potassium chloride 10 mEq Tablet,Er Particles/Crystals 10 meq PO BID RF: 0 amlodipine 10 MG tablet 10 mg PO DAILY RF: 0 Toujeo SoloStar U-300 Insulin 300 unit/mL (1.5 mL) insulin pen 20 unit SC BREAKFAST Qty: 0 RF: 0 dexamethasone 2 mg tablet 6 mg PO DAILY Qty: 18 RF: 0 Changed insulin aspart U-100 [Novolog Flexpen U-100 Insulin] 100 unit/mL (3 mL) insulin pen 10 unit SUBCUT TIDCM Qty: 0 RF: 0 Referrals / Follow Up: Page Sutton PRESERVATIVE FILLER MACHINE OPERATOR, PRESERVATIVE FILLER MACHINE OPERATOR-C [Primary Care Provider] - Disposition Disposition (needs filled in before D/C Order can be placed): Nursing Home Facility Charges/Coding Visit Charges OBSV E&M: 31263 Observation care discharge
== END 2021-01-25 18:49 | disposition skilled nursing facility (03) ==
LOC: ED 23:29 → MS3 01-25 00:20
PROVIDERS: Nurse Practitioner Family; Admitting Provider Hospitalist; Emergency Provider Emergency Medicine; PCP Nurse Practitioner Family; Visit Provider Internal Medicine
DX: U07.1 COVID-19 (principal); E11.22 Type 2 diabetes mellitus with diabetic chronic kidney disease; N18.4 Chronic kidney disease, stage 4 (severe); I25.10 Atherosclerotic heart disease of native coronary artery without angina pectoris; R41.89 Other symptoms and signs involving cognitive functions and awareness; J96.11 Chronic respiratory failure with hypoxia; I50.22 Chronic systolic (congestive) heart failure; I13.2 Hypertensive heart and chronic kidney disease with heart failure and with stage 5 chronic kidney disease, or end stage renal disease; J45.909 Unspecified asthma, uncomplicated; E78.5 Hyperlipidemia, unspecified; K21.9 Gastro-esophageal reflux disease without esophagitis; F32.A Depression, unspecified; F41.9 Anxiety disorder, unspecified; E66.01 Morbid (severe) obesity due to excess calories; E11.65 Type 2 diabetes mellitus with hyperglycemia; I25.2 Old myocardial infarction; Z79.82 Long term (current) use of aspirin; Z79.899 Other long term (current) drug therapy; Z79.01 Long term (current) use of anticoagulants; Z79.4 Long term (current) use of insulin; Z87.891 Personal history of nicotine dependence; Z68.42 Body mass index [BMI] 45.0-49.9, adult
CPT/HCPCS: 36415; 71045; 80048; 82962; 83605; 83735; 84100; 85025; 93005; 96361; 96374; 96375; 97162; 97166; 97802; 99218; 99251; 99284; A4216; G0378; G0463; J2405

== ENCOUNTER → 2021-02-19 12:57 | Outpatient (CLI) | payer MEDICARE, MEDICAID, SELFPAY ==
--- NOTE | 2021-02-19 13:01 | VDUE_ITS ---
Reason For Study: ESRD Right Arm Left Arm Right Cephalic Vein at the wrist measures Left Cephalic Vein at the wrist measures 0.13 x 0.13 cm. 0.17 x 0.17 cm. Right Cephalic Vein in the forearm measures Left Cephalic Vein in the forearm measures 0.11 x 0.12 cm. 0.15 x 0.16 cm. Right Cephalic Vein below antecub measures Left Cephalic Vein below antecub measures 0.16 x 0.15 cm. 0.25 x 0.26 cm. Right Cephalic Vein above antecub measures Left Cephalic Vein above antecub measures 0.27 x 0.27 cm. 0.30 x 0.30 cm. Right Cephalic Vein mid bicep measures 0.20 Left Cephalic Vein at mid bicep measures x 0.19 cm. 0.36 x 0.35 cm. Right Cephalic Vein at the shoulder measures Left Cephalic Vein at the shoulder measures 0.17 x 0.17 cm. 0.36 x 0.39 cm. Right Basilic Vein at the origin measures Basilic vein at origin measures 0.33 x 0.33 0.40 x 0.40 cm. cm. Right Basilic Vein mid bicep measures 0.40 x Basilic vein at bicep measures 0.31 x 0.31 0.39 cm. cm. Right Basilic Vein above antecub measures Basilic vein above antecub measures 0.25 x 0.36 x 0.35 cm. 0.24 cm. Right Brachial artery measures 0.43 x 0.43 Left Brachial artery measures 0.40 x 0.43 cm cm with a velocity of 97.3 cm/sec. with a velocity of 119.8 cm/sec. Right Radial artery measures 0.23 x 0.23 cm Left Radial artery measures 0.23 x 0.23 cm with a velocity of 101.2 cm/sec. with a velocity of 114.2 cm/sec. VL/Saphenous Vein Mapping, Bilat Interpretation Summary Patent and compressible bilateral upper extremity cephalic and basilic veins wi th dimensions as noted. Cephalic veins of the forearm appear to be quite small Normal diameter and flow bilateral radial and brachial arteries Ordering Physician: Monica Faith Referring Physician: Page Sutton Performed By: Akiko Deleon RVT ?
== END ==
PROVIDERS: PCP Nurse Practitioner Family; Referring Provider Internal Medicine Nephrology; Visit Provider Internal Medicine Nephrology
DX: Z01.818 Encounter for other preprocedural examination (principal); N18.6 End stage renal disease; Z99.2 Dependence on renal dialysis
CPT/HCPCS: 93970; 93985

== ENCOUNTER 2021-03-28 05:45 | Day surgery (SDC) | payer MEDICARE, MEDICAID, SELFPAY ==
[2021-03-28] VITALS (9 sets, daily range): BP systolic 119–154; BP diastolic 69–75; PULSE 60–62; RESP 16; TEMP 36.1–37.1; O2SAT 91–99; BMI 42.0
[2021-03-28 06:40] LABS: Hematocrit 40.7 % (37-47); Hemoglobin 13.1 g/dL (12.0-15.0); Mean Corp Hgb Conc 32.2 g/dL (32-36); Mean Corpuscular Hgb 30.3 pg (27.0-32.0); Mean Platelet Vol. 12.4 fl (6.2-12.0); Platelet Count 173 K/mm3 (150-450); RBC Distribution Width CV 14.7 % (11.6-14.6); RBC Distribution Width SD 50.6 fl (35.1-43.9); Red Blood Count 4.33 M/mm3 (4.2-5.4); White Blood Count 4.6 K/mm3 (4.4-11.0)
[2021-03-28 06:53] LABS: Anion Gap 8 (5-15); BUN 23 mg/dL (7-18); BUN/Creat Ratio 7.7 RATIO (10-20); Calcium,Total 8.3 mg/dL (8.5-10.1); Chloride 103 mmol/L (98-107); EST Glomerular Filtration Rate 17 mL/min (>60); Est Glom Filt Rate - Afr Amer 21 mL/min (>60); Estimated Creatinine Clearance 15.99 ml/min; Glucose 182 mg/dL (74-106); Potassium 3.7 mmol/L (3.5-5.1); Sodium Level 141 mmol/L (136-145)
--- NOTE | 2021-03-28 07:06 | PCM.HP.BLA ---
History and Physical Date of Admission: 03/28/21 [facility] Visit Reasons: Consult fistula/[facility] 02/19 Chief Complaint: fistula consult [employer] Required: No Is patient in pain?: No Allergies No Known Allergies Allergy (Verified 03/05/21 14:45) Medications aspirin 81 mg PO DAILY@0800 07/15/18 [History Confirmed 03/05/21] apixaban 5 mg PO BID 08/04/18 [History Confirmed 03/05/21] atorvastatin 80 mg PO QHS 08/04/18 [History Confirmed 03/05/21] torsemide 100 mg tablet 50 mg PO BID tab 04/14/19 [History Confirmed 03/05/21] melatonin 5 mg tablet 5 mg PO HS PRN 08/03/20 [History Confirmed 03/05/21] allopurinol 100 mg PO DAILY 09/20/20 [History Confirmed 03/05/21] carvedilol 12.5 mg PO BID 09/20/20 [History Confirmed 03/05/21] escitalopram oxalate [Lexapro] 5 mg PO DAILY 09/20/20 [History Confirmed 03/05/21] gabapentin 100 mg PO TID 09/20/20 [History Confirmed 03/05/21] hydralazine 100 mg PO TID 09/20/20 [History Confirmed 03/05/21] acetaminophen [Tylenol] 650 mg PO Q6H PRN PRN #0 tab 10/03/20 [Rx Confirmed 03/05/21] amlodipine 10 mg PO DAILY 01/20/21 [History Confirmed 03/05/21] potassium chloride 10 meq PO BID 01/20/21 [History Confirmed 03/05/21] Toujeo SoloStar U-300 Insulin 20 unit SC BREAKFAST #0 ml 01/23/21 [Rx Confirmed 03/05/21] dexamethasone 6 mg PO DAILY #18 tab 01/25/21 [Rx Confirmed 01/24/21] insulin aspart U-100 [Novolog Flexpen U-100 Insulin] 10 unit SUBCUT TIDCM #0 ml 01/25/21 [Rx Confirmed 03/05/21] nystatin [Nyamyc] 1 applic TOPICAL BID #0 g 01/25/21 [Rx Confirmed 03/05/21] [facility] Medical History (Updated 03/05/21 @ 14:[address] German Donahue MD) Acute renal injury due to circulatory failure Anxiety Asthma Atherosclerosis of coronary artery of [place] heart without angina pectoris Bilateral carotid bruits Chronic heart failure with preserved ejection fraction (HFpEF) Debility Depression Diabetes Essential hypertension Generalized weakness GERD (gastroesophageal reflux disease) Headache History of cholelithiasis History of non-ST elevation myocardial infarction (NSTEMI) (01/20/21) History of renal calculi Hyperlipidemia Hypoxia Inability to walk Ischemic cerebrovascular accident (CVA) (04/2018) Kidney disease Morbid obesity Non-STEMI (non-ST elevated myocardial infarction) (01/20/21) Respiratory insufficiency Type 2 diabetes mellitus without complication Surgical History (Updated 02/04/21 @ 09:44 by Salma Austin) History of appendectomy History of History of cholecystectomy History of coronary artery stent placement (06/2016) History of left heart catheterization Family History Mother Diabetes Heart disease Hypertension Father Hypertension Heart disease Brother Heart disease Hypertension Sister Heart disease Diabetes Social History Smoking Status: Former smoker alcohol intake: never HPI HPI HPI: ZAYDA ANTOINE, is a 55 F who presents to the office today for surgical consultation regarding creation of a arteriovenous hemodialysis fistula. The patient is referred by [facility] dialysis center and Dr. Granger and a written copy my surgical consult recommendations will return to them. Patient has stage IV chronic renal insufficiency. She was hospitalized at [facility] January 24 through January 25, 2021. She had generalized weakness chronic renal failure and acute Covid-19. She had just been discharged from the hospital 1 day prior. She was unable to care for herself. In addition to Covid-19 she had a non-STEMI. During her hospitalization she was noted to have a body weight of 233 pounds with a BMI of 45.6 Unfortunately I was not able to get much information from her. The patient was late for her appointment today. Her sister apparently was walking and was listening on the telephone. The patient writes with her right arm February 19, 2021 Reason For Study: ESRD Right Arm Left Arm Right Cephalic Vein at the wrist measures Left Cephalic Vein at the wrist measures 0.13 x 0.13 cm. 0.17 x 0.17 cm. Right Cephalic Vein in the forearm measures Left Cephalic Vein in the forearm measures 0.11 x 0.12 cm. 0.15 x 0.16 cm. Right Cephalic Vein below antecub measures Left Cephalic Vein below antecub measures 0.16 x 0.15 cm. 0.25 x 0.26 cm. Right Cephalic Vein above antecub measures Left Cephalic Vein above antecub measures 0.27 x 0.27 cm. 0.30 x 0.30 cm. Right Cephalic Vein mid bicep measures 0.20 Left Cephalic Vein at mid bicep measures x 0.19 cm. 0.36 x 0.35 cm. Right Cephalic Vein at the shoulder measures Left Cephalic Vein at the shoulder measures 0.17 x 0.17 cm. 0.36 x 0.39 cm. Right Basilic Vein at the origin measures Basilic vein at origin measures 0.33 x 0.33 0.40 x 0.40 cm. cm. Right Basilic Vein mid bicep measures 0.40 x Basilic vein at bicep measures 0.31 x 0.31 0.39 cm. cm. Right Basilic Vein above antecub measures Basilic vein above antecub measures 0.25 x 0.36 x 0.35 cm. 0.24 cm. Right Brachial artery measures 0.43 x 0.43 Left Brachial artery measures 0.40 x 0.43 cm cm with a velocity of 97.3 cm/sec. with a velocity of 119.8 cm/sec. Right Radial artery measures 0.23 x 0.23 cm Left Radial artery measures 0.23 x 0.23 cm with a velocity of 101.2 cm/sec. with a velocity of 114.2 cm/sec. VL/Saphenous Vein Mapping, Bilat Interpretation Summary Patent and compressible bilateral upper extremity cephalic and basilic veins with dimensions as noted. Cephalic veins of the forearm appear to be quite small Normal diameter and flow bilateral radial and brachial arteries Ordering Physician: Monica Faith Referring Physician: Page Sutton Performed By: Akiko Deleon RVT ? 02/19/21 1418Date German Donahue MD ROS General General: No weight change, appetite, fatigue, colon cancer, breast cancer or weakness HEENT HEENT: No difficulty swallowing, eye injury, eye surgery, swollen glands or hoarseness Endo Endocrine: Yes diabetes mellitus; No thyroid disease, thyroid cancer, Hair loss, heat intolerance or cold intolerance Cardio Cardiovascular: Yes high blood pressure, heart attack and heart stent; No murmur, pacemaker, heart disease, atrial fibrillation, palpitations, shortness of breat with exertion or chest pain Psych Psychiatric: No depression, anxiety or hearing voices Resp Respiratory: Yes shortness of breath, No sleep apnea, No cough, No COPD, No asthma, No emphysema and No wheezing Gastro Gastrointestinal: No abdominal pain, No nausea or vomiting, No diarrhea, No constipation, No blood in stool, No acid reflux, No hemorrhoids, No ulcers, No gallbladder problem and No black,tarry stools [place] Hematologic: No blood thinners, No blood disorders, No bleeding, No anemia and No blood clots Neuro Neurologic: No weakness Exam Const General: comfortable and no acute distress Nutritional Appearance: obese morbidly obese Chest Other: Right chest hemodialysis catheter is in place Resp Effort & Inspection: normal respiratory effort Auscultation: clear to auscultation bilaterally Cardio Rate: regular rate GI Other: Obese, I cannot detect any internal organs Musc Cervical Spine: normal cervical lordosis Skin Other: Left upper extremity demonstrates intact skin Neuro Cognition: abnormal cognition Extrem Other: Bilateral lower extremity swelling Left upper extremity 3+ left radial pulse 3+ left brachial pulse. Superficial veins not visualized. Evidence of a recent left antecubital needle puncture site I performed ultrasound inspection demonstrating the left upper arm cephalic vein to be variable in diameter and quite deeply placed. Appears to be patent and compressible as per the preop vein mapping Psych Mental Status: other Mood: other Assessment and Plan Assessment and Plan (1) Chronic renal failure, stage 5: Status: Chronic Plan - Dr. German Donahue MD: Challenging 55-year-old female with multiple significant medical comorbidities with recent COVID-19 infection and glucose [id number] and diabetes and morbid obesity with additional problems with ischemic CVA malignant hypertension and non-ST segment MN. She is right arm dominant. Her veins are of borderline caliber and are deeply placed secondary to body habitus with a BMI of 57.4. This point I propose for her a transposition left upper arm cephalic vein to brachial artery AV fistula creation. Unfortunately this vein appears somewhat variable. No guarantees of success have been offered. We will need to have her hold her Eliquis 48 hours prior to surgery. She will need to keep her glucose level maximized. She has had an opportunity to ask and have questions answered. We will schedule procedure at her discretion. I appreciate the opportunity of assisting with her surgical care Copy: Dr. Granger and Page Sutton NP-C German Donahue M.D., F.A.C.S. I have re-examined the patient. There are no clinical changes since date of exam. German Donahue M.D., F.A.C.S.
--- NOTE | 2021-03-28 07:09 | EX.PCM.DISCH ---
Discharge Instructions Procedure Fistula Diet Discharge Diet: Renal Diet Activity Discharge Activity: May Not Drive (for 2-3 days or while taking narcotic pain medications.), May Shower and May Take a Tub Bath (in 5 days.) Lifting Restrictions: 5 pounds Keep extremity elevated above heart level: - (Keep arm elevated above the heart level for 3 days.) Dressing / Incision Call your doctor if your incision/area has: Continuous Slow Oozing, Sudden Increased Bleeding (apply pressure and call your doctor.), Increased Pain/ Swelling, Increased Redness and Foul Smelling Discharge Call your doctor if you observe: Fever of 101 or Higher Suture Line Care: Avoid Pulling/Pushing and Avoid Pinching/Bending Cleanse incision/area with: Keep Dressing Clean & Dry Additional Dressing/Incision Instructions:: Change or remove dressing in one day. May protect with a gauze bandaid. Follow Up Care Please Follow Up With: German Donahue MD When: Call [phone] to make an appointment for suture removal and follow up in 1 week. Test Results: Test results from this visit will be discussed in further detail at your follow-up appointment, if applicable. Discharge Plan Admission Attending Provider: German Donahue Primary Care Provider: Page Sutton GORE STITCHER Discharge Orders/Prescriptions Prescriptions: No Action torsemide 100 mg tablet 50 mg PO BID RF: 0 melatonin 5 mg tablet 5 mg PO HS PRN (Reason: Sleep) RF: 0 aspirin 81 MG tablet,chewable 81 mg PO DAILY@0800 RF: 0 atorvastatin 80 MG tablet 80 mg PO QHS RF: 0 apixaban 5 MG tablet 5 mg PO BID RF: 0 carvedilol 12.5 mg tablet 12.5 mg PO BID RF: 0 allopurinol 100 mg tablet 100 mg PO DAILY RF: 0 hydralazine 100 mg tablet 100 mg PO TID RF: 0 gabapentin 100 mg capsule 100 mg PO TID RF: 0 acetaminophen [Tylenol] 325 mg Tablet 650 mg PO Q6H PRN PRN (Reason: Pain 1-10 Or Fever) Qty: 0 RF: 0 potassium chloride 10 mEq Tablet,Er Particles/Crystals 10 meq PO BID RF: 0 amlodipine 10 MG tablet 10 mg PO DAILY RF: 0 nystatin [Nyamyc] 100,000 unit/gram Powder 1 applic topical BID Qty: 0 RF: 0 insulin aspart U-100 [Novolog Flexpen U-100 Insulin] 100 unit/mL (3 mL) insulin pen 5 unit SUBCUT BID RF: 0 Jey Villanueva U-300 Insulin 300 unit/mL (1.5 mL) insulin pen 22 unit SC BREAKFAST RF: 0
[2021-03-28] MEDS: Lidocaine 1% (30 ml sdv) 30 ML Vial (07:38)
[2021-03-28] MEDS: Heparin Injection (Vial) 5,000 UNIT/ML VIAL 5000 UNIT (07:38)
[2021-03-28] MEDS: Bupivacaine Mpf 0.5% 30 ML VIAL (07:38)
[2021-03-28 08:15] LABS: Bedside Glucose 185 mg/dL (70-110)
--- NOTE | 2021-03-28 09:22 | PCM.OPRPT ---
Problems Associated Problem List Diagnoses (1) Chronic renal failure, stage 5: Report of Operation Date of Procedure: 03/28/21 Pre-Operative Diagnosis: Stage V chronic renal failure Post-Operative Diagnosis: Same Surgery/Procedure Performed:: Transposition left upper arm cephalic vein to brachial artery arteriovenous hemodialysis fistula creation Description of Surgical Findings:: Timeout informed consent was obtained. 55-year-old female was taken to the operating placed on the table underwent monitored anesthesia care. Ancef 2 g were given to the venously preoperatively. The left upper semisterilely prepped and draped. 1% lidocaine mixed 50-50 with 0.5% Marcaine was used as a local anesthetic. A total of 54 cc cc was used. Ultrasound mapping was performed. Local was instilled. A longitudinal incision was made up the left upper arm. Sharp and blunt dissection was used to identify the cephalic vein. Side branches were secured with 4-0 Vicryl ligatures and hemoclips were indicated. The vein was then measured. I did medial subcutaneous dissection to the left upper arm brachial artery and circumferential control was obtained. A tunneler was then placed from the antecubital space to the shoulder area. The vein was ligated at the antecubital space with 4-0 Vicryl. It was then placed through the tunneler. The patient received 10,000's of heparin weightbase. Bulldog clamps were placed on the brachial artery 11 blade was used to make an arteriotomy. The vein was gently spatulated. And a side venous to arterial anastomosis was created with running 7-0 Prolene. Bulldogs were released and immediate flow was achieved a small side branch was further secured with a simple suture of 7-0 Prolene. There was a good thrill within the fistula. There was still a easily 2+ left radial pulse. The hand was viable. Surgicel was briefly used to assist with hemostasis. The patient received protamine 30 mg and reversal. The subcutaneous tissues were approximated running 3-0 Vicryl. The skin edges approximated with running subicular 4-0 Monocryl. Steri-Strips Telfa tape soft roll Raymond wrap applied. Sponge and instrument and needle counts were reported to the surgeon be correct. Blood loss was 100 cc. Specimens none. Drains none. She was taken to the recovery room in satisfactory addition without apparent complication. German Donahue M.D., F.A.C.S. Surgeon: German Donahue Type of Anesthesia: Local and MAC Anesthesiologist: Alisha Feldman
== END 2021-03-28 12:11 | disposition home or self-care (01) ==
LOC: SDC 05:47 → AC 05:48
PROVIDERS: PCP Nurse Practitioner Family; Referring Provider Surgery; Visit Provider Surgery
PROC: (CPT 36818; principal; 2021-03-28 07:15)
DX: E11.22 Type 2 diabetes mellitus with diabetic chronic kidney disease (principal); I13.2 Hypertensive heart and chronic kidney disease with heart failure and with stage 5 chronic kidney disease, or end stage renal disease; I50.32 Chronic diastolic (congestive) heart failure; N18.5 Chronic kidney disease, stage 5; Z99.2 Dependence on renal dialysis; E66.01 Morbid (severe) obesity due to excess calories; Z68.42 Body mass index [BMI] 45.0-49.9, adult; I25.2 Old myocardial infarction; F41.9 Anxiety disorder, unspecified; F32.A Depression, unspecified; K21.9 Gastro-esophageal reflux disease without esophagitis; E78.5 Hyperlipidemia, unspecified; I25.10 Atherosclerotic heart disease of native coronary artery without angina pectoris; J45.909 Unspecified asthma, uncomplicated; Z87.19 Personal history of other diseases of the digestive system; Z86.73 Personal history of transient ischemic attack (TIA), and cerebral infarction without residual deficits; Z87.442 Personal history of urinary calculi; Z95.5 Presence of coronary angioplasty implant and graft; Z79.4 Long term (current) use of insulin; Z79.01 Long term (current) use of anticoagulants; Z79.82 Long term (current) use of aspirin; Z87.891 Personal history of nicotine dependence
CPT/HCPCS: 36818; 80048; 82962; 85027; J7040; J7120; J2405

== ENCOUNTER 2021-04-19 06:47 | Outpatient (CLI) | payer MEDICARE, MEDICAID, SELFPAY ==
--- NOTE | 2021-04-19 12:41 | STRESSREP ---
Stress Test Report Pharmacologic myocardial perfusion stress test. 55-year-old lady with a history of renal failure and non-ST elevation myocardial infarction. Stress protocol: Resting EKG demonstrates normal sinus rhythm with a rate of 64 bpm first-degree AV block is noted resting blood pressure is 140/82 mmHg. 0.4 mg of regadenoson was infused per usual protocol followed Intravenous saline flush injection continuous EKG monitoring was performed. The patient maintained sinus rhythm throughout the recording. At rest there were no ST or T wave changes noted to suggest abnormal flow reserve and a peak infusion nonspecific ST changes were noted. The maximum heart rate was 75 bpm. The peak blood pressure is 140/82 mmHg. Myocardial perfusion protocol. 14.8 mCi of technetium 99m sestamibi was injected at rest. 0.4 mg of regadenoson was infused per usual protocol. At peak infusion 44.5 mCi of technetium 99m sestamibi was injected stress images were obtained stress and rest images were reconstructed and compared in the short axis vertical long and horizontal long axis. Gated images were also obtained for Perfusion SPECT analysis: Review of the stress images demonstrate normal uptake of tracer noted in all areas of the myocardium except for the mid inferior wall with reduced perfusion. The resting images demonstrate a similar pattern but with improvement in the inferior wall suggesting mid inferior ischemia present. No other areas of reversibility are noted to suggest ischemia. Gated SPECT analysis: The gated ejection fraction is 71%. Conclusion: Abnormal pharmacologic myocardial perfusion stress test with mid inferior ischemia and medium sized territory. Preserved ejection fraction..
== END 2021-04-19 23:59 | disposition short-term general hospital (02) ==
LOC: CVS 06:49
PROVIDERS: PCP Nurse Practitioner Family; Referring Provider Physician Assistant Medical; Visit Provider Physician Assistant Medical
DX: I25.2 Old myocardial infarction (principal)
CPT/HCPCS: 78452; 93017; A9500; A4216; J2785

== ENCOUNTER 2021-05-27 08:46 | Day surgery (SDC) | payer MEDICARE, MEDICAID, SELFPAY ==
[2021-05-24 08:14] VITALS: BMI 54.2
[2021-05-24 14:55] LABS: Absolute Lymphocyte Count 1.16 X10^3/uL (0.83-4.51); Absolute Neutrophil Count 4.6 X10^3/uL (2.0-7.7); Basophil# 0.03 X10^3/uL; Basophil% 0.4 % (0-1); Eosinophil# 0.36 X10^3/uL; Eosinophils% 5.2 % (0-5); Hematocrit 35.6 % (37-47); Lymphocyte # 1.16 X10^3/ul (0.83-4.51); Lymphocyte % 16.7 % (19-41); Mean Corp Hgb Conc 33.7 g/dL (32-36); Mean Corpuscular Hgb 30.8 pg (27.0-32.0); Mean Corpuscular Volume 91.3 fL (81-99); Mean Platelet Vol. 12.9 fl (6.2-12.0); Monocyte# 0.76 X10^3/uL; Monocyte% 10.9 % (0-10); NRBC Flagged by Analyzer 0 % (0-5); Neutrophil # 4.59 X10^3/uL (2.7-7.7); Neutrophil % 66.1 % (47-70); Platelet Count 174 K/mm3 (150-450); RBC Distribution Width CV 13.6 % (11.6-14.6); RBC Distribution Width SD 45.2 fl (35.1-43.9)
[2021-05-24 15:02] LABS: International Normalized Ratio 1.1; Prothrombin Time (Protime)PT. 13.4 SECONDS (11.7-14.9)
[2021-05-24 15:03] LABS: Partial Thromboplast Time 29.4 Seconds (24.1-36.2)
[2021-05-24 15:19] LABS: Color, Urine Yellow (Yellow); Glucose, Dipstick Normal (Normal); Ketone-Dipstick Negative (Negative); Leukocyte Esterase-Dipstick Negative /ul (Negative); Nitrite-Dipstick Negative (Negative); Occult Blood-Urine Negative /ul (Negative); Protein-Dipstick 100 mg/dl (Negative); Specific Gravity, Urine 1.005 (1.002-1.030); Urine Bilirubin Dipstick Negative (Negative); Urine Clarity Clear (Clear); Urine Urobilinogen Normal (Normal)
[2021-05-24 15:27] LABS: Anion Gap 6 (5-15); BUN 44 mg/dL (7-18); BUN/Creat Ratio 12.8 RATIO (10-20); Calcium,Total 8.5 mg/dL (8.5-10.1); Chloride 105 mmol/L (98-107); Creatinine, Serum 3.43 mg/dL (0.55-1.02); EST Glomerular Filtration Rate 15 mL/min (>60); Est Glom Filt Rate - Afr Amer 18 mL/min (>60); Estimated Creatinine Clearance 29.86 ml/min; Glucose 111 mg/dL (74-106); Potassium 3.9 mmol/L (3.5-5.1); Sodium Level 142 mmol/L (136-145)
--- NOTE | 2021-05-27 09:47 | PCM.HP.BLA ---
History and Physical Date of Admission: 05/27/21 This is a 54-year-old female who is here today for a diagnostic heart cath for an abnormal stress test. Stress test was done following her hospital stay in December for her NSTEMI. Stress test in 03/2021 demonstrated an abnormal pharmacologic myocardial perfusion stress test with mid inferior ischemia and medium sized territory. Preserved ejection fraction.. She has a history of coronary artery disease with stenting to her LAD and circumflex in 2016. She also has a history of hypertension, hyperlipidemia, CVA in 2019, diabetes and congestive heart failure. She is on Dialysis through a port M//. Patient does not have any cardiac symptoms. She does not have any chest discomfort, worsening shortness of breath, lightheadedness, dizziness, palpitations. She does not have any lower extremity edema. Allergies No Known Allergies Allergy (Verified 03/26/21 14:29) Medications aspirin 81 mg PO DAILY@0800 07/15/18 [History Confirmed 03/26/21] apixaban 5 mg PO BID 08/04/18 [History Confirmed 03/26/21] atorvastatin 80 mg PO QHS 08/04/18 [History Confirmed 03/26/21] torsemide 100 mg tablet 50 mg PO BID tab 04/14/19 [History Confirmed 03/26/21] melatonin 5 mg tablet 5 mg PO HS PRN 08/03/20 [History Confirmed 03/26/21] allopurinol 100 mg PO DAILY 09/20/20 [History Confirmed 03/26/21] carvedilol 12.5 mg PO BID 09/20/20 [History Confirmed 03/26/21] gabapentin 100 mg PO TID 09/20/20 [History Confirmed 03/26/21] hydralazine 100 mg PO TID 09/20/20 [History Confirmed 03/26/21] acetaminophen [Tylenol] 650 mg PO Q6H PRN PRN #0 tab 10/03/20 [Rx Confirmed 03/26/21] amlodipine 10 mg PO DAILY 01/20/21 [History Confirmed 03/26/21] potassium chloride 10 meq PO BID 01/20/21 [History Confirmed 03/26/21] nystatin [Nyamyc] 1 applic TOPICAL BID #0 g 01/25/21 [Rx Confirmed 03/26/21] Jey SoloStar U-300 Insulin 22 unit SC BREAKFAST 03/21/21 [History Confirmed 03/26/21] insulin aspart U-100 [Novolog Flexpen U-100 Insulin] 5 unit SUBCUT BID 03/21/21 [History Confirmed 03/26/21] [facility] Medical History Acute renal injury due to circulatory failure Anxiety Asthma Atherosclerosis of coronary artery of [place] heart without angina pectoris Bilateral carotid bruits Cardiology follow-up encounter Chronic heart failure with preserved ejection fraction (HFpEF) Debility Depression Diabetes Easy bruising Essential hypertension Former smoker Generalized weakness GERD (gastroesophageal reflux disease) Headache High cholesterol History of cholelithiasis History of echocardiogram History of non-ST elevation myocardial infarction (NSTEMI) (01/20/21) History of renal calculi History of renal dialysis Hyperlipidemia Hypoxia Inability to walk Insulin dependent diabetes mellitus Ischemic cerebrovascular accident (CVA) (04/2018) Kidney disease Low iron Morbid obesity Non-STEMI (non-ST elevated myocardial infarction) (01/20/21) Respiratory insufficiency Stroke/cerebrovascular accident Type 2 diabetes mellitus without complication Wears glasses Surgical History History of appendectomy History of History of cholecystectomy History of coronary artery stent placement (06/2016) History of left heart catheterization Family History Mother Diabetes Heart disease Hypertension Father Hypertension Heart disease Brother Heart disease Hypertension Sister Heart disease Diabetes Social History Smoking Status: Former smoker alcohol intake: never ROS Const Const: Positive for fatigue; Negative for weakness, headache(s), frequent falls, excessive sweating, weight gain or weight loss Eyes Eyes: Negative for blind spots, loss of peripheral vision, transient loss of vision, blurry vision, change in vision or double vision ENT ENT: Negative for headache(s), dizziness, tinnitus, Nosebleed/epistaxis or balance problems Cardio Chest Pain: No Palpitations: No Edema: None Muscle aches with walking: None Resp Respiratory: Negative for SOB with activity, SOB at rest, SOB orthopnea\SOB lying down or Cough GI GI: Negative nausea, vomiting, heartburn, bloating, vomiting blood/hematemesis, bright, red blood in stools or black,tarry stools : Negative for hematuria Musc Musc: Positive for muscle aches/ myalgia and muscle weakness; Negative for joint pain or balance problems Skin Skin: Negative rash or wounds Neuro Neuro: Negative for dizziness, lightheadedness, near syncope, syncope, orthostatic symptoms, frequent falls, headache(s), weakness, confusion, memory loss, restless legs, blurry vision or double vision [place] Hematologic/Lymphatic: Negative for easy bleeding or easy bruising Endo Endo: Positive for fatigue; Negative for cold intolerance, heat intolerance or excessive sweating Psych Psych: Negative for anxiety or depression Allergy Allergy/Immunology: Negative for rash Cardiology Exam Const Appearance: cooperative, no acute distress and well developed Nutritional Appearance: obese Orientation: alert, awake and oriented x3 Limitations: physical limitations in WC Head Head: normocephalic and atraumatic Mouth: moist mucous membranes Eyes General: appearance normal, both eyes and all related structures Conjunctivae: conjunctivae normal Pupils: PERRL EOM: EOM intact bilaterally Neck Neck: normal visual inspection, no lymphadenopathy and no JVD Carotids: bruit Bilateral Neck Mass: Negative Neck mass Chest Chest Chest inspection: normal inspection of the chest and symmetric chest movement Auscultation: Bilateral: Diminished Lung Sounds Dialysis port right upper chest Cardio Palpation: normal PMI Rate: regular rate Rhythm: regular rhythm Heart sounds: S1 normal, S2 normal and murmur; Negative rub or gallop Murmur: Grade 2/6, soft and mid systolic GI GI: normal to inspection, soft, no hepatosplenomegaly, bowel sounds present and obese; Negative tender Neuro General: patient alert, patient awake, patient oriented x3, CN's II-XI intact bilaterally and moves all extremities Extremities Pulses: Normal: Right Posterior Tibial Pulse, Left Posterior Tibial Pulse, Right Radial Pulse and Left Radial Pulse Lower Extremity Edema: None: Bilateral Psych Psychological: normal affect (Tearful) Assessment & Plan Assessment/Plan (1) Abnormal nuclear stress test: (2) History of non-ST elevation myocardial infarction (NSTEMI): (3) Atherosclerosis of coronary artery of [place] heart without angina pectoris: QUALIFIERS: Coronary Disease-Associated Artery/Lesion type: [place] artery Qualified Code(s): I25.10 - Atherosclerotic heart disease of [place] coronary artery without angina pectoris (4) Ischemic cerebrovascular accident (CVA): (5) Essential hypertension: (6) Hyperlipidemia: (7) ESRD (end stage renal disease) on dialysis: PLAN: Pt will undergo a diagnostic heart cath for her abnormal stress test. Follow up will be based on findings.
--- NOTE | 2021-05-27 11:34 | CL.D_ITS ---
Patient Name: ZAYDA ANTOINE Study Date: 05/27/2021 Performing: Jalen Romano MD Ht: 54 inches 137 cm : 1965 Wt: 225.2 lbs 102 kg Age: 55 Gender: female BSA: 1.82 PROCEDURE(S) PERFORMED [id number])[facility] CLINICAL PROFILE AND INDICATIONS Indications: Suspected CAD Heart Failure: None Stress/Imaging Date: 04/19/21Stress Test with SPECT MPI: Positive Intermediate Risk CAD Presentations: Symptom unlikely to be ischemic. CONCLUSIONS Diffuse coronary disease with previously placed stents which are all patent and preserved ejection fr action. The inferior ischemia was likely from the PDA and posterolateral branches which are small. RECOMMENDATIONS Medical therapy DESCRIPTION OF PROCEDURE The patient arrived to the procedure lab. The risks and benefits of the procedure as well as a full d escription of our services here and current unavailability of surgical backup were fully explained to the patient and/or their significant other prior to the catheterization. The Timeout was completed, verifying the correct patient and procedure. The patient's procedural site was prepped and draped in the usual fashion. Local anesthetic was given subcutaneously to right radial region with Lidocaine 2% -Dr Alvarez. Using a modified Seldinger technique, arterial access was obtained via the right radia l artery, a 6Fr sheath was inserted-Dr Alvarez Left Coronary Artery selective angiography was perf ormed in multiple views using a 5 Fr. 4.0 Montgomery catheter. Right Coronary Artery selective angiography was then performed in multiple views using a 5 Fr. 4.0 Montgomery catheter.The arterial sheath was pulled and a TR Band was applied for hemostasis w/10ml air CORONARY ANGIOGRAPHY DOMINANCE: Right Dominant LEFT HEART ASSESSMENT Left Ventricular Ejection Fraction: by Echo 60 % Normal LV wall motion Normal Left Ventricular systolic function LEFT MAIN: Angiographically normal LEFT ANTERIOR DESCENDING ARTERY: Is a previously stented vessel and was noted to have patent stents w ith a mid to distal 60% stenotic lesion. Diffuse diagonal vessel is noted. CIRCUMFLEX ARTERY: First obtuse marginal branch was previously stented with mild in-stent stenosis, s econd obtuse marginal branch with 90% proximal stenosis, and moderate diffuse left circumflex artery disease. RIGHT CORONARY ARTERY: Previous multiple stenting with proximal 50% in-stent stenosis and mild diffus e in-stent stenosis. Posterolateral vessel with 80% proximal to mid stenosis and posterior descendin g artery with 80% mid stenosis. These vessels are small. COMPLICATIONS No Complications PROCEDURE MEDICATIONS Versed 1 mg IV Fentanyl 50 mcg IV Versed 1 mg IV Versed 1 mg IV Oxygen: 2 L/min via nasal cannula Heparin given IA 05/27/2021 11:16:18 Verapamil 2.5mg, Ntg 100mcgs, 3000 units of Heparin given IA 05/27/2021 11:16:18 SUMMARY OF HEMODYNAMIC DATA Time AIR REST ECG 09:17:35 AO 89/52 (67) SA 11:17:51 Signed By Jalen Romano MD On 05/27/2021 11:33:13 AM Jalen Romano MD
[2021-05-27 12:31] LABS: Bedside Glucose 108 mg/dL (70-110)
== END 2021-05-27 23:59 | disposition home or self-care (01) ==
PROVIDERS: PCP Nurse Practitioner Family; Referring Provider Internal Medicine Cardiovascular Disease; Visit Provider Internal Medicine Cardiovascular Disease
DX: I25.10 Atherosclerotic heart disease of native coronary artery without angina pectoris (principal); I13.2 Hypertensive heart and chronic kidney disease with heart failure and with stage 5 chronic kidney disease, or end stage renal disease; Z99.2 Dependence on renal dialysis; I50.32 Chronic diastolic (congestive) heart failure; E11.22 Type 2 diabetes mellitus with diabetic chronic kidney disease; N18.6 End stage renal disease; E66.01 Morbid (severe) obesity due to excess calories; Z68.43 Body mass index [BMI] 50.0-59.9, adult; Z79.4 Long term (current) use of insulin; E78.00 Pure hypercholesterolemia, unspecified; Z87.891 Personal history of nicotine dependence; E78.5 Hyperlipidemia, unspecified; I25.2 Old myocardial infarction; Z86.73 Personal history of transient ischemic attack (TIA), and cerebral infarction without residual deficits; Z95.5 Presence of coronary angioplasty implant and graft; F41.9 Anxiety disorder, unspecified; J45.909 Unspecified asthma, uncomplicated; F32.A Depression, unspecified; K21.9 Gastro-esophageal reflux disease without esophagitis; Z87.19 Personal history of other diseases of the digestive system; Z79.82 Long term (current) use of aspirin; Z79.01 Long term (current) use of anticoagulants; Z79.899 Other long term (current) drug therapy
CPT/HCPCS: 36415; 80048; 81002; 82962; 85025; 85610; 85730; 93454; 99152; 99153; J7040; Q9967; C1769; C1894

== ENCOUNTER 2022-07-12 12:53 | Inpatient (IN) | payer MEDICARE, MEDICAID, SELFPAY ==
[2022-07-12] VITALS (7 sets, daily range): BP systolic 122–154; BP diastolic 48–66; PULSE 61–87; RESP 16–24; TEMP 36.4–36.8; O2SAT 89–97; BMI 41.3
--- NOTE | 2022-07-12 13:27 | CT_ITS ---
STUDY: CT Spine Cervical W/O Contrast Injection 07/12/2022 3:11 PM REASON FOR EXAM: Female, 56 years old. NECK PAIN trauma HISTORY: NECK PAIN trauma TECHNIQUE: High resolution transaxial imaging was performed without intravenous administration of contrast material. Sagittal and coronal images were reconstructed. Individualized dose optimization techniques were used for this CT. COMPARISON: None FINDINGS: Normal craniovertebral junction. Normal anterior atlantoaxial articulation. Normal odontoid process. There is straightening of the normal cervical lordosis. Normal vertebral bodies and posterior osseous elements. C2-3: Normal endplates. Normal disc height and morphology. Normal central canal and intervertebral neuroforamina. C3-4: Normal endplates. Normal disc height and morphology. Normal central canal and intervertebral neuroforamina. C4-5: Normal endplates. Normal disc height and morphology. Normal central canal and intervertebral neuroforamina. C5-6: Normal endplates. Normal disc height and morphology. Normal central canal and intervertebral neuroforamina. C6-7: Normal endplates. Normal disc height and morphology. Normal central canal and intervertebral neuroforamina. C7-T1: Normal endplates. Normal disc height and morphology. Normal central canal and intervertebral neuroforamina. Normal visualized soft tissue structures. CT/Spine Cervical without Contras IMPRESSION: (NOT LISTED IN ORDER OF SIGNIFICANCE) There is altered curvature of the normal cervical lordosis. This can suggest neck strain. Electronically Signed: Emery Adkins MD at 15:13 EDT ,
--- NOTE | 2022-07-12 13:27 | CT_ITS ---
EXAM: CT MAXILLOFACIAL WITHOUT INTRAVENOUS CONTRAST CLINICAL INDICATION: trauma fell 4 days ago, swelling to left forehead, extensive bruising to entire face. On dialysis and blood thinners. TECHNIQUE: Helically acquired images were obtained of the face without intravenous contrast. This CT exam was performed using one or more of the following dose reduction techniques: automated exposure control, adjustment of the mA and/or kV according to patient size, and/or use of iterative reconstruction technique. This report was created using [employer] report [employer]D Hubs technology. RADIATION DOSE: CTDIvol = 29.38 mGy, DLP = 518.07 mGy-cm COMPARISON: None. FINDINGS: BONES/JOINTS: Unremarkable. No displaced fracture. No discrete lytic or blastic abnormalities. SOFT TISSUES: Mild soft tissue swelling along the left forehead. No visible fracture. No discrete fluid collections. ORBITS: Unremarkable. Both globes are unremarkable. Extraocular muscles are normal. Retrobulbar fat appears unremarkable. SINUSES: Mild sinus disease. MASTOID AIR CELLS: Unremarkable as visualized. Clear. DENTAL: No acute findings. No periodontal osseous erosion. CT/Sinus/Facial Bone IMPRESSION: Mild soft tissue swelling along the left forehead. No visible fracture. Electronically Signed: Emery Adkins MD at 15:06 EDT ,
--- NOTE | 2022-07-12 13:27 | CT_ITS ---
EXAM: CT HEAD WITHOUT INTRAVENOUS CONTRAST CLINICAL INDICATION: trauma TECHNIQUE: Multiple axial images were obtained of the head without intravenous contrast. This CT exam was performed using one or more of the following dose reduction techniques: automated exposure control, adjustment of the mA and/or kV according to patient size, and/or use of iterative reconstruction technique. This report was created using [employer] report generation technology. RADIATION DOSE: CTDIvol = 44.99 mGy, DLP = 745.49 mGy-cm COMPARISON: 09/21/2020 FINDINGS: BRAIN AND EXTRA-AXIAL SPACES: Old left MCA infarct. No intra- or extra-axial hemorrhage. No intracranial mass or mass effect. Posterior fossa structures are unremarkable. Ventricles are appropriate for age. No hydrocephalus. Basal cisterns are patent. BONES/JOINTS: Unremarkable. No discrete lytic or blastic abnormalities. SOFT TISSUES: Soft tissue swelling along the left fore head. SINUSES: There is sinus disease. MASTOID AIR CELLS: Unremarkable. Clear. ORBITS: Visualized globes, extraocular muscles, optic nerves and retrobulbar fat appear unremarkable. CT/Brain/Head without Contrast IMPRESSION: Soft tissue swelling along the left fore head. Electronically Signed: Emery Adkins MD at 15:00 EDT ,
--- NOTE | 2022-07-12 13:28 | EKG12_ITS ---
Test Reason : FALL Blood Pressure : / mmHG Vent. Rate : 065 BPM Atrial Rate : 065 BPM P-R Int : 254 ms QRS Dur : 086 ms QT Int : 434 ms P-R-T Axes : 081 016 006 degrees QTc Int : 451 ms Sinus rhythm with 1st degree A-V block Low voltage QRS Borderline ECG Confirmed by STEFANY FRY ([id number]), newspaper or periodical editor CAROLYN GROSS ([id number]) on 07/15/2022 7:28:00 AM Referred By: Confirmed By:STEFANY FRY
--- NOTE | 2022-07-12 13:36 | EDS_ITS ---
HPI <TERESA Connors - Last Filed: 07/12/22 15:47> History of Present Illness Chief Complaint: Fall Narrative Narrative: Patient is a 56-year-old female with history of end-stage renal disease with dialysis with a fistula left arm, patient is on Eliquis, CAD, CVA with residual, CHF who presents to the emergency department for reevaluation after mechanical fall. Patient had a mechanical fall 4 days ago, she fell in the parking lot striking her face on the concrete. Patient was seen at [facility], the patient and the patient's sister were very unhappy with the care that they received. They are unsure if they did a CT scan or not, they states that she was only there for 30 minutes. Over the last 2 days, patient has having more headaches, she is having worsening pain to the left eye, she has also been acting more altered. She is had multiple episodes of nausea and vomiting. Patient is also coughing and having increased shortness of breath, per the sister she is concerned for an infection. PFS <TERESA Connors - Last Filed: 07/12/22 15:47> [facility] Medical History Acute renal injury due to circulatory failure Anxiety Asthma Atherosclerosis of coronary artery of [place] heart without angina pectoris Bilateral carotid bruits Cardiology follow-up encounter Chronic heart failure with preserved ejection fraction (HFpEF) COVID-19 (01/20/21) Debility Depression Diabetes Easy bruising ESRD (end stage renal disease) on dialysis Essential hypertension Former smoker Generalized weakness GERD (gastroesophageal reflux disease) Headache History of cholelithiasis History of non-ST elevation myocardial infarction (NSTEMI) (01/20/21) History of renal calculi Hyperlipidemia Hypoxia Inability to walk Insulin dependent diabetes mellitus Ischemic cerebrovascular accident (CVA) (04/2018) Kidney disease Low iron Malignant hypertension Morbid obesity Non-STEMI (non-ST elevated myocardial infarction) (01/20/21) Respiratory insufficiency Type 2 diabetes mellitus without complication Wears glasses Home Medications aspirin 81 mg chewable tablet 81 mg PO DAILY@0800 HEART HEALTH 07/15/18 [History Last Taken 05/27/21] apixaban 5 mg tablet 5 mg PO BID BLOOD THINNER 08/04/18 [History Last Taken 01/19/21] atorvastatin 80 mg tablet 80 mg PO QHS CHOLESTEROL 08/04/18 [History Last Taken 01/19/21] torsemide 100 mg tablet 50 mg PO BID diuretic 04/14/19 [History Last Taken 05/27/21] melatonin 5 mg tablet 5 mg PO HS PRN Sleep 08/03/20 [History Last Taken 01/19/21] allopurinol 100 mg tablet 100 mg PO DAILY gout 09/20/20 [History Last Taken 01/19/21] carvedilol 12.5 mg tablet 6.25 mg PO BID blood pressure 09/20/20 [History Last T aken 05/27/21] hydralazine 100 mg tablet 100 mg PO TID blood pressure 09/20/20 [History Last Taken 05/27/21] acetaminophen 325 mg tablet (Tylenol) 650 mg PO Q6H PRN PRN Pain 1-10 Or Fever #0 tabs 10/03/20 [Rx Last Taken Unknown] amlodipine 10 mg tablet 10 mg PO DAILY blood pressure 01/20/21 [History Last Taken 05/27/21] potassium chloride 10 mEq tablet,extended release(part/cryst) 10 meq PO BID acevedo pplement 01/20/21 [History Last Taken 05/27/21] insulin aspart U-100 100 unit/mL (3 mL) subcutaneous pen (Novolog FlexPen U-100 Insulin aspart) 5 unit subcut BID blood sugar 03/21/21 [History Last Taken Unknown] insulin glargine U-300 conc 300 unit/mL (1.5 mL) subcutaneous pen (Toujeo SoloStar U-300 Insulin) 20 unit subcut BREAKFAST diabetes 03/21/21 [History Last Taken Unknown] nystatin 100,000 unit/gram topical powder (Nyamyc) 1 applic topical BID PRN RASH/YEAST 07/12/22 [History Last Taken Unknown] Allergy/AdvReac Type Severity Reaction Status Date / Time No Known Allergies Allergy Verified 06/26/21 08:32 Family History Mother Diabetes Heart disease Hypertension Father Hypertension Heart disease Brother Heart disease Hypertension Sister Heart disease Diabetes Surgical History History of appendectomy History of arteriovenostomy for renal dialysis (~03/2021) History of History of cholecystectomy History of coronary artery stent placement (06/2016) History of left heart catheterization (05/27/21) Social History Smoking Status: Former smoker alcohol intake: never ROS <TERESA Connors - Last Filed: 07/12/22 15:47> ROS ED ROS Narrative Constitutional: Negative for fever, chills, weight loss. Positive for generalized weakness Eyes: Negative for vision loss, vision change, double vision. Positive for left eye pain ENT: Negative for any sore throat, ear pain, congestion Cardiovascular: Negative for any chest pain, tightness, palpitations Respiratory: Negative for any cough, sputum production, hemoptysis, dyspnea, dyspnea on exertion, orthopnea Gastrointestinal: Negative for any abdominal pain, nausea, vomiting, diarrhea, constipation, blood in stool, blood in vomit : Negative for any urinary frequency, dysuria, retention, blood in urine Muscle skeletal: Negative for any muscle joint pain, stiffness, myalgias, arthralgias, back pain. Positive for bilateral knee pain, neck pain Neurological: Negative for any syncope, numbness or tingling, dizziness. Positive for headache, feeling of out of it Skin: Negative for any rashes, lumps, itching, abrasions, lacerations. Significant ecchymosis around the face Psychiatric: Negative for any depression, anxiety, stress, suicidal ideation, homicidal ideation Hematologic: Negative for any easy bruising, excessive bruising, easy bleeding Allergies: Negative for any eczema, hives, rash EXAM <TERESA Connors - Last Filed: 07/12/22 15:47> Physical Exam Narrative Exam Narrative: Vital signs reviewed. Patient is alert and oriented x4 however patient is somewhat slow to respond and has difficulty with the timeframe of events. Per the sister, this is residual from the stroke. HEET: Head normocephalic atraumatic, TMs clear bilaterally. Posterior pharynx is clear, moist mucous membranes. Nares clear bilaterally. Patient has signifi cant ecchymosis around bilateral eyes, patient has hematoma to left forehead along with ecchymosis and edema. Patient has significant tenderness along the left inferior orbit. No deformity was felt. Pupils are equal. Negative for any hemotympanum. Patient has bruising throughout the orbital areas. Neck: Supple with no lymphadenopathy or tenderness. No signs of meningismus, negative jolt sign. Cardiac: Regular rate and rhythm no murmurs gallops or rubs, equal peripheral pulses bilaterally. Respiratory: Lungs clear to auscultation bilaterally. No chest tenderness. Abdomen: Soft, nontender, nondistended. No abdominal bruit or pulsatile masses. No hepatosplenomegaly Extremities: No peripheral edema, no signs of gross trauma or deformity. Active full range of motion of all extremities. Neuro: Cranial nerves II through XII intact, no focal neurological deficits. Skin: Clean dry and intact with no rash, purpura, petechiae, vesicles or pustules. Backs/flank: No CVA tenderness, no midline spinal tenderness, no deformity. Psych: Normal mood and affect. No SI, HI or acute psychosis. Const Vital Signs: 07/12/22 12:54 07/12/22 12:58 07/12/22 13:00 Temperature 98.0 F Temperature Source Temporal Pulse Rate 67 67 Respiratory Rate 18 16 Respiratory Effort Normal Respiratory Pattern Normal Blood Pressure 131/48 H Blood Pressure Mean 75 Pulse Ox 92 89 Oxygen Delivery Method Room Air Room Air 07/12/22 14:56 07/12/22 16:01 Temperature 97.5 F L Temperature Source Temporal Pulse Rate 87 61 Respiratory Rate 20 H 18 Respiratory Effort Respiratory Pattern Blood Pressure 154/66 H 134/66 H Blood Pressure Mean 95 88 Pulse Ox 97 94 Oxygen Delivery Method Room Air Room Air <Dr. Samm Talley MD - Last Filed: 07/12/22 16:54> Physical Exam Const Vital Signs: 07/12/22 12:54 07/12/22 12:58 07/12/22 13:00 Temperature 98.0 F Temperature Source Temporal Pulse Rate 67 67 Respiratory Rate 18 16 Respiratory Effort Normal Respiratory Pattern Normal Blood Pressure 131/48 H Blood Pressure Mean 75 Pulse Ox 92 89 Oxygen Delivery Method Room Air Room Air 07/12/22 14:56 07/12/22 16:01 Temperature 97.5 F L Temperature Source Temporal Pulse Rate 87 61 Respiratory Rate 20 H 18 Respiratory Effort Respiratory Pattern Blood Pressure 154/66 H 134/66 H Blood Pressure Mean 95 88 Pulse Ox 97 94 Oxygen Delivery Method Room Air Room Air MDM <TERESA Connors - Last Filed: 07/12/22 15:47> MDM Lab Data Labs: Laboratory Results - last 24 hr 07/12/22 07/12/22 07/12/22 13:45 13:45 13:45 WBC 7.2 RBC 2.80 L Hgb 9.2 L Hct 28.4 L MCV 101.4 H MCH 32.9 H MCHC 32.4 RDW Std Deviation 55.9 H RDW Coeff of [place] 15.4 H Plt Count 105 L MPV 12.2 H Immature Gran % (Auto) 0.300 Neut % (Auto) 76.5 H Lymph % (Auto) 7.6 L Routt % (Auto) 12.2 H Eos % (Auto) 3.1 Baso % (Auto) 0.3 Absolute Neuts (auto) 5.5 Absolute Lymphs (auto) 0.54 L Nucleated RBC % 0 PT 15.2 H INR 1.2 Sodium 139 Potassium 4.1 Chloride 102 Carbon Dioxide 36.0 H Anion Gap 1 L BUN 23 H Creatinine 3.67 H Estim Creat Clear Calc 12.92 Est GFR (MDRD) Af Amer 16 L Est GFR (MDRD) Non-Af 14 L BUN/Creatinine Ratio 6.3 L Glucose 186 H Calcium 8.5 ABG Data ABG results: ABG 07/12/22 15:28 Specimen Type SARAH VBG pH 7.49 H VBG pO2 42 H VBG HCO3 33 H VBG Total CO2 34 H VBG O2 Sat (Calc) 81 H VBG Base Excess 9 H POC Mix VBG pCO2 Pt Tmp 43.0 O2 Delivery Device Room Air Radiography Diagnostic Testing: Clinical Impression(s) from Imaging Studies Brain CT 07/12/22 13:27 IMPRESSION: Soft tissue swelling along the left fore head. Electronically Signed: Emery Adkins MD at 15:00 EDT , Cervical Spine CT 07/12/22 13:27 IMPRESSION: (NOT LISTED IN ORDER OF SIGNIFICANCE) There is altered curvature of the normal cervical lordosis. This can suggest neck strain. Electronically Signed: Emery Adkins MD at 15:13 EDT , Facial/Sinus 07/12/22 13:27 IMPRESSION: Mild soft tissue swelling along the left forehead. No visible fracture. Electronically Signed: Emery Adkins MD at 15:06 EDT , Chest X-Ray 07/12/22 14:40 IMPRESSION: Right lower lobe infiltrate. Electronically Signed: Emery Adkins MD at 15:02 EDT , Treatment and Re-Evaluation :: All radiologic examinations were read, reviewed by the emergency department attending. From these reads, a plan of care will be put in place. Patient appears slightly lethargic however patient is in no distress. Patient's pulse oxygenation was 89%, patient was placed on 2 L of oxygen. Per the visitor, patient's been more short of breath over the last 2 days. Patient presents the emergency department for reevaluation after sustaining a head injury 5 days ago. Patient is on Eliquis. Patient did receive basic laboratory values, patient's CBC shows slight anemia with a hemoglobin of 9.2 negative for any leukocytosis. Patient's PT/INR shows a PT of 15.2 with a normal INR. Patient's chemistries show chronic kidney disease on hemodialysis. Patient's CO2 was 36 which is elevated for the patient. This could be secondary to being more short of breath. Patient's BUN is 23 with a creatinine of 3.6, this is baseline for the patient. Patient did receive CT scans of the brain to rule out any delayed bleeding, cervical spine, as well as facial CT. CT scan of the brain and maxillofacial bones showed no acute process, did mention the old stroke, mild soft tissue swelling along the left forehead, no visible fractures. CT scan of the cervical spine was unremarked for any acute fracture. Patient did receive a chest x-ray, this was secondary to the hypoxia as well as increased shortness of breath. This was positive for a right lower lobe infiltrate. This is consistent with the physical examination. Patient will receive a VBG. Negative for any COVID-19 or influenza. She was placed on Zithromax as well as Rocephin. She does not meet any SIRS criteria. She will need to be admitted to the hospital for weakness, hypoxia, community-acquired pneumonia. No evidence suspect any cervical spine fracture, facial fracture, skull fracture, intracranial bleeding. Patient will be admitted to hospital. Patient has hypoxia at 89%. Patient is diagnosed with a right lower lobe pneumonia. There is some discrepancy in charting with 97% on room air, the patient is currently on 2 L. Patient stable for admission. <Dr. Samm Talley MD - Last Filed: 07/12/22 16:54> [facility] MDM Narrative Medical decision making narrative: I have personally performed a face to face assessment of the patient and have reviewed the KEYANA Note. I performed a substantive portion of the visit including all aspects of the following. My acevedo findings include: History is remarkable for fall Thursday. She was seen at outside facility. She states she only had an x-ray. She does complain of headache. She denies neck pain. Denies paresthesia, anesthesia medics. She does express being nauseous. She is not her alert normal self according to person accompanying her. She denies ringing or ears or decreased hearing. She denies bleeding from her nose. She denies dental trauma. She denies cardiac or respiratory symptoms. She has a fistula left arm. Exam is patient has concern for basal skull fracture since she has raccoon sign. There is no hemotympanum. There is no CSF otorrhea or rhinorrhea. There is no septal deviation hematoma. No TMJ tenderness noted. There is tenderness over the left maxillary region. There is no step-off of the infraorbital rim. Question of hyperesthesia of the infraorbital nerve on the left. Posterior pharynx unremarkable. Trachea is midline. No cervical spine tenderness. She is not alert. She is awake. She is slow to answer. There is no clonus Kym nski sign noted. Motor sensor intact. Medical Decision Making because patient is on anticoagulant and has pain is concerning for basal skull fractures CT of the head was obtained as well as facial films. Blood work was obtained assess H&H. Other additions or changes: CT of the face was reviewed and there is mild bilateral maxillary sinus disease and ethmoid disease. There is no facial bone fractures that I was able to appreciate. The C-spine appears unremarkable and the CT of the head reveals an old remote left parietal infarct with no evidence of hemorrhage. Chest x-ray portion reveals an infiltrate right lower lobe. This may explain her hypoxia. Because of her elevated CO2 on basic metabolic panel compared to prior VBG was obtained to assess acid-base status and CO2 since there is concern for retention which may be due to body habitus versus pneumonia. Lab Data Attestation: I reviewed the patient's lab results. Lab results narrative: White count is normal. Hemoglobin is 9.2 and 20.4. Patient has been anemic in the past. PT/INR was unremarkable. Basic metabolic panel is marked for an elevated CO2 compared to baseline. Creatinine is elevated 3.67 which is within her normal range. She is on hemodialysis. More importantly BUN is only slight elevated 23. Glucose is elevated 186. There is no anion gap. Labs: Laboratory Results - last 24 hr 07/12/22 07/12/22 07/12/22 13:45 13:45 13:45 WBC 7.2 RBC 2.80 L Hgb 9.2 L Hct 28.4 L MCV 101.4 H MCH 32.9 H MCHC 32.4 RDW Std Deviation 55.9 H RDW Coeff of [place] 15.4 H Plt Count 105 L MPV 12.2 H Immature Gran % (Auto) 0.300 Neut % (Auto) 76.5 H Lymph % (Auto) 7.6 L Routt % (Auto) 12.2 H Eos % (Auto) 3.1 Baso % (Auto) 0.3 Absolute Neuts (auto) 5.5 Absolute Lymphs (auto) 0.54 L Nucleated RBC % 0 PT 15.2 H INR 1.2 Sodium 139 Potassium 4.1 Chloride 102 Carbon Dioxide 36.0 H Anion Gap 1 L BUN 23 H Creatinine 3.67 H Estim Creat Clear Calc 12.92 Est GFR (MDRD) Af Amer 16 L Est GFR (MDRD) Non-Af 14 L BUN/Creatinine Ratio 6.3 L Glucose 186 H Calcium 8.5 ABG Data ABG results: ABG 07/12/22 15:28 Specimen Type SARAH VBG pH 7.49 H VBG pO2 42 H VBG HCO3 33 H VBG Total CO2 34 H VBG O2 Sat (Calc) 81 H VBG Base Excess 9 H POC Mix VBG pCO2 Pt Tmp 43.0 O2 Delivery Device Room Air Radiography Diagnostic Testing: Clinical Impression(s) from Imaging Studies Brain CT 07/12/22 13:27 IMPRESSION: Soft tissue swelling along the left fore head. Electronically Signed: Emery Adkins MD at 15:00 EDT , Cervical Spine CT 07/12/22 13:27 IMPRESSION: (NOT LISTED IN ORDER OF SIGNIFICANCE) There is altered curvature of the normal cervical lordosis. This can suggest neck strain. Electronically Signed: Emery Adkins MD at 15:13 EDT Reading Location ID and State: [employer] / [place] , Service support , Facial/Sinus 07/12/22 13:27 IMPRESSION: Mild soft tissue swelling along the left forehead. No visible fracture. Electronically Signed: Emery Adkins MD at 15:06 EDT , Chest X-Ray 07/12/22 14:40 IMPRESSION: Right lower lobe infiltrate. Electronically Signed: Emery Adkins MD at 15:02 EDT , EKG Initial EKG: Attestation: I personally reviewed and interpreted this EKG as follows: Interpretation: Sinus Rhythm (Sinus rhythm rate of 65 with first-degree AV block. NC interval is 204 ms. Cures duration 86 ms. QT duration 434 ms. There is evidence of low voltage. Mclain is normal.) Discharge Plan Dx/Rx/DC Orders Clinical Impression: Community acquired pneumonia, Hypoxia, Closed head injury, Concussion, History of coronary artery stent placement, Hyperlipidemia, ESRD (end stage renal disease) on dialysis, Hypertension, History of CVA (cerebrovascular accident), Contusion of face, scalp and neck Disposition Disposition: Acute Care Hospital [facility]
[2022-07-12] MEDS: Acetaminophen 500 MG Tablet 1000 MG PO (13:47)
[2022-07-12] MEDS: Ondansetron 4 MG/2 ML Vial IV ×2 (13:49→16:58)
[2022-07-12 13:59] LABS: Absolute Lymphocyte Count 0.54 X10^3/uL (0.83-4.51); Absolute Neutrophil Count 5.5 X10^3/uL (2.0-7.7); Basophil# 0.02 X10^3/uL; Basophil% 0.3 % (0-1); Eosinophil# 0.22 X10^3/uL; Eosinophils% 3.1 % (0-5); Hematocrit 28.4 % (37-47); Hemoglobin 9.2 g/dL (12.0-15.0); Lymphocyte # 0.54 X10^3/ul (0.83-4.51); Lymphocyte % 7.6 % (19-41); Mean Corp Hgb Conc 32.4 g/dL (32-36); Mean Corpuscular Hgb 32.9 pg (27.0-32.0); Mean Corpuscular Volume 101.4 fL (81-99); Mean Platelet Vol. 12.2 fl (6.2-12.0); Monocyte# 0.87 X10^3/uL; Monocyte% 12.2 % (0-10); NRBC Flagged by Analyzer 0 % (0-5); Neutrophil # 5.48 X10^3/uL (2.7-7.7); Neutrophil % 76.5 % (47-70); POSITIVE DIFFERENTIAL YES; Platelet Count 105 K/mm3 (150-450); RBC Distribution Width CV 15.4 % (11.6-14.6); RBC Distribution Width SD 55.9 fl (35.1-43.9); White Blood Count 7.2 K/mm3 (4.4-11.0)
[2022-07-12 14:01] LABS: Differential Indicated SCAN CRITERIA MET
[2022-07-12 14:07] LABS: Anion Gap 1 (5-15); BUN 23 mg/dL (7-18); BUN/Creat Ratio 6.3 RATIO (10-20); Calcium,Total 8.5 mg/dL (8.5-10.1); Chloride 102 mmol/L (98-107); Creatinine, Serum 3.67 mg/dL (0.55-1.02); EST Glomerular Filtration Rate 14 mL/min (>60); Est Glom Filt Rate - Afr Amer 16 mL/min (>60); Estimated Creatinine Clearance 12.92 ml/min; Glucose 186 mg/dL (74-106); International Normalized Ratio 1.2; Potassium 4.1 mmol/L (3.5-5.1); Prothrombin Time (Protime)PT. 15.2 SECONDS (11.7-14.9); Sodium Level 139 mmol/L (136-145)
--- NOTE | 2022-07-12 14:40 | RAD_ITS ---
STUDY: XR Chest 1 View 07/12/2022 2:36 PM REASON FOR EXAM: Female, 56 years old. CHEST PAIN cough COMPARISON: 01/24/2021 TECHNIQUE: XR Chest 1 View FINDINGS: There is no demonstrated pleural abnormality. Right lower lobe infiltrate. Enlarged heart size. Normal mediastinum. Normal kristi. Prominent appearing increased interstitial lung markings. Normal visualized pulmonary arteries. There is atherosclerotic calcification of the aortic arch with tortuosity. There are diffuse degenerative changes of the visualized thoracic spine. There is degenerative osteoarthritis of the bilateral shoulders. There is no demonstrated abnormality of the visualized soft tissue structures of the upper abdomen. RAD/Chest 1 View (Portable) IMPRESSION: Right lower lobe infiltrate. Electronically Signed: Emery Adkins MD at 15:02 EDT ,
[2022-07-12 15:35] LABS: Blood Gas Specimen Type VEN; O2 Delivery Device Room Air; VBG BASE EXCESS 9 mmol/L (-1.0-3.5); VBG Bicarbonate 33 mmol/L (22-26); VBG PO2 42 mmHg (25-40); VBG SO2 81 % (50-70); VBG TCO2 34 mmol/L (23-33); VBG pH 7.49 (7.32-7.42)
[2022-07-12] MEDS: Ceftriaxone 1 GM/50 ML BAG IV (15:35)
[2022-07-12] MEDS: Insulin Lispro 100 UNIT/ML INSULN.PEN SC (17:48)
--- NOTE | 2022-07-12 18:01 | PCM.HP.STD ---
HPI - General General Date of Admission: 07/12/22 Date of Service: 07/12/22 Chief Complaint: Cough, vomiting, headache HPI Narrative ZAYDA ANTOINE, is a 56 F who presents to the emergency room at [facility] for evaluation of vomiting, headache, and dry cough. Complete history was unable to be obtained from the patient due to previous stroke, she keeps saying ask my sister she takes care of me. Work-up in the emergency room included a chest x-ray which showed right lower lobe infiltrate, patient required 2 L of oxygen to maintain her pulse ox above 90%. Patient's white blood cell count was 7.2 today, hemoglobin was 9.2, creatinine was 3.67 and BUN was 23. Patient states that she goes to dialysis Thursday and Saturdays, she maintains she had dialysis today however. She does not know who her warehouse lead is. Patient will be admitted to [place] [id number], she will be given aerosol treatments and IV Zithromax and Rocephin. Patient will be reevaluated tomorrow. I will have nursing contact her sister to see who the patient's warehouse lead is. [facility], [facility] Medical History Acute renal injury due to circulatory failure Anxiety Asthma Atherosclerosis of coronary artery of [place] heart without angina pectoris Bilateral carotid bruits Cardiology follow-up encounter Chronic heart failure with preserved ejection fraction (HFpEF) COVID-19 (01/20/21) Debility Depression Diabetes Easy bruising ESRD (end stage renal disease) on dialysis Essential hypertension Former smoker Generalized weakness GERD (gastroesophageal reflux disease) Headache History of cholelithiasis History of non-ST elevation myocardial infarction (NSTEMI) (01/20/21) History of renal calculi Hyperlipidemia Hypoxia Inability to walk Insulin dependent diabetes mellitus Ischemic cerebrovascular accident (CVA) (04/2018) Kidney disease Low iron Malignant hypertension Morbid obesity Non-STEMI (non-ST elevated myocardial infarction) (01/20/21) Respiratory insufficiency Type 2 diabetes mellitus without complication Wears glasses Home Medications aspirin 81 mg chewable tablet 81 mg PO DAILY@0800 HEART HEALTH 07/15/18 [History Last Taken 05/27/21] apixaban 5 mg tablet 5 mg PO BID BLOOD THINNER 08/04/18 [History Last Taken 01/19/21] atorvastatin 80 mg tablet 80 mg PO QHS CHOLESTEROL 08/04/18 [History Last Taken 01/19/21] torsemide 100 mg tablet 50 mg PO BID diuretic 04/14/19 [History Last Taken 05/27/21] melatonin 5 mg tablet 5 mg PO HS PRN Sleep 08/03/20 [History Last Taken 01/19/21] allopurinol 100 mg tablet 100 mg PO DAILY gout 09/20/20 [History Last Taken 01/19/21] carvedilol 12.5 mg tablet 6.25 mg PO BID blood pressure 09/20/20 [History Last Taken 05/27/21] hydralazine 100 mg tablet 100 mg PO TID blood pressure 09/20/20 [History Last Taken 05/27/21] acetaminophen 325 mg tablet (Tylenol) 650 mg PO Q6H PRN PRN Pain 1-10 Or Fever #0 tabs 10/03/20 [Rx Last Taken Unknown] amlodipine 10 mg tablet 10 mg PO DAILY blood pressure 01/20/21 [History Last Taken 05/27/21] potassium chloride 10 mEq tablet,extended release(part/cryst) 10 meq PO BID supplement 01/20/21 [History Last Taken 05/27/21] insulin aspart U-100 100 unit/mL (3 mL) subcutaneous pen (Novolog FlexPen U-100 Insulin aspart) 5 unit subcut BID blood sugar 03/21/21 [History Last Taken Unknown] insulin glargine U-300 conc 300 unit/mL (1.5 mL) subcutaneous pen (Toujeo SoloStar U-300 Insulin) 20 unit subcut BREAKFAST diabetes 03/21/21 [History Last Taken Unknown] cholecalciferol (vitamin D3) 50 mcg (2,000 unit) capsule 50 mcg DAILY Check with primary doctor 07/12/22 [History Last Taken Unknown] ezetimibe 10 mg tablet 10 mg DAILY Check with primary doctor 07/12/22 [History Last Taken Unknown] nystatin 100,000 unit/gram topical powder (Nyamyc) 1 applic topical BID PRN RASH/YEAST 07/12/22 [History Last Taken Unknown] vitamin B complex-vitamin C-folic acid 0.8 mg tablet (Nephro-Todd) 1 tab DAILY Check with primary doctor 07/12/22 [History Last Taken Unknown] Allergy/AdvReac Type Severity Reaction Status Date / Time No Known Allergies Allergy Verified 06/26/21 08:32 Family History Mother Diabetes Heart disease Hypertension Father Hypertension Heart disease Brother Heart disease Hypertension Sister Heart disease Diabetes Surgical History History of appendectomy History of arteriovenostomy for renal dialysis (~03/2021) History of History of cholecystectomy History of coronary artery stent placement (06/2016) History of left heart catheterization (05/27/21) Social History Smoking Status: Former smoker alcohol intake: never ROS ROS Narrative Review of systems was unobtainable from the patient due to chronic cognitive impairment from a past history of stroke Vital Signs Vital Signs Vital Signs: 07/12/22 12:54 07/12/22 12:58 07/12/22 13:00 Temperature 98.0 F Temperature Source Temporal Pulse Rate 67 67 Respiratory Rate 18 16 Respiratory Effort Normal Respiratory Pattern Normal Blood Pressure 131/48 H Blood Pressure Mean 75 Pulse Ox 92 89 Oxygen Delivery Method Room Air Room Air 07/12/22 14:56 07/12/22 16:01 Temperature 97.5 F L Temperature Source Temporal Pulse Rate 87 61 Respiratory Rate 20 H 18 Respiratory Effort Respiratory Pattern Blood Pressure 154/66 H 134/66 H Blood Pressure Mean 95 88 Pulse Ox 97 94 Oxygen Delivery Method Room Air Room Air Weight Weight: 99.2 kg Body Mass Index (BMI) 41.3 Physical Exam Const alert Constitutional Narrative: Patient is morbidly obese General Appearance: cooperative, well kempt and well developed Orientation / Consciousness: awake and oriented to person HEENT normocephalic and moist oral mucous membranes HEENT Narrative: There are areas of ecchymosis noted over the patient's face from a previous fall recently Eyes PERRL, EOMs intact bilaterally and conjunctivae normal Neck supple, no JVD, thyroid normal and no carotid bruits General: trachea midline Resp normal respiratory effort, no retractions, no use of accessory muscles and clear to auscultation bilaterally Auscultation: Negative for rales, rhonchi or wheezes Cardio regular rate, regular rhythm, S1 normal heart sound, S2 normal heart sound, no murmurs, no rub and no gallops GI normal to inspection, nondistended, normoactive bowel sounds, soft to palpation, non-tender and non-distended Extremity no clubbing, cyanosis or edema Skin no rashes or lesions noted General Skin Exam: no breakdown Neuro oriented x3, CN's II-XII intact bilaterally, moves all extremities, no focal motor deficits and no sensory deficits noted Sensorium / Orientation: awake, alert, oriented to person and oriented to place Speech: speech normal Psych Psych Narrative: Patient is a poor informant, she is able to give some medical information but most of the time states ask my sister, she takes care of me Results Lab / Micro Data Result Diagrams: 07/13/22 04:38 07/12/22 13:45 Labs: Laboratory Results - last 24 hr 07/12/22 13:45: WBC 7.2, RBC 2.80 L, Hgb 9.2 L, Hct 28.4 L, MCV 101.4 H, MCH 32.9 H, MCHC 32.4, RDW Std Deviation 55.9 H, RDW Coeff of [place] 15.4 H, Plt Count 105 L, MPV 12.2 H, Immature Gran % (Auto) 0.300, Neut % (Auto) 76.5 H, Lymph % (Auto) 7.6 L, [place] % (Auto) 12.2 H, Eos % (Auto) 3.1, Baso % (Auto) 0.3, Absolute Neuts (auto) 5.5, Absolute Lymphs (auto) 0.54 L, Nucleated RBC % 0 07/12/22 13:45: Sodium 139, Potassium 4.1, Chloride 102, Carbon Dioxide 36.0 H, Anion Gap 1 L, BUN 23 H, Creatinine 3.67 H, Estim Creat Clear Calc 12.92, Est GFR (MDRD) Af Amer 16 L, Est GFR (MDRD) Non-Af 14 L, BUN/Creatinine Ratio 6.3 L, Glucose 186 H, Calcium 8.5 07/12/22 13:45: PT 15.2 H, INR 1.2 Micro: Microbiology 07/12/22 13:45 Nasal Secretion SARS-CoV-2 & FLU Antigen (Rapid) - Final ABG Data ABG results: ABG 07/12/22 15:28 Specimen Type SARAH VBG pH 7.49 H VBG pO2 42 H VBG HCO3 33 H VBG Total CO2 34 H VBG O2 Sat (Calc) 81 H VBG Base Excess 9 H POC Mix VBG pCO2 Pt Tmp 43.0 O2 Delivery Device Room Air Radiology Impression Brain CT 07/12/22 13:27 IMPRESSION: Soft tissue swelling along the left fore head. Electronically Signed: Emery Adkins MD at 15:00 EDT , Cervical Spine CT 07/12/22 13:27 IMPRESSION: (NOT LISTED IN ORDER OF SIGNIFICANCE) There is altered curvature of the normal cervical lordosis. This can suggest neck strain. Electronically Signed: Emery Adkins MD at 15:13 EDT , Facial/Sinus 07/12/22 13:27 IMPRESSION: Mild soft tissue swelling along the left forehead. No visible fracture. Electronically Signed: Emery Adkins MD at 15:06 EDT , Chest X-Ray 07/12/22 14:40 IMPRESSION: Right lower lobe infiltrate. Electronically Signed: Emery Adkins MD at 15:02 EDT , Assessment & Plan Assessment/Plan (1) Community acquired pneumonia: PLAN: Plan 1. Right lower lobe community-acquired pneumonia-patient will be admitted to [facility], she was placed on IV Rocephin and Zithromax, aerosol treatments will be administered, labs will be obtained tomorrow morning #2 hypoxia secondary to right lower lobe community-acquired pneumonia-patient is mildly hypoxic, I will attempt to wean oxygen if possible #3 end-stage renal disease on dialysis-patient states her dialysis days are Thursday, , and Thursday, her dialysis physician is in [place], if patient has to stay past Thursday of this week in the hospital here, she will need a consultation with nephrology for dialysis on Thursday. #4 recent fall with contusions of the face scalp and neck-supportive care is being given, PT and OT are seeing the patient #5 coronary artery disease-stable at this time, continue present medications #6 cerebrovascular disease with previous stroke in 2019 with cognitive impairment-complicates care, medical course, recovery, and prognosis, patient will remain on her present medications Total clinical time spent by myself addressing patient's medical issues, reviewing all of her data, and collaborating with patient's care team: 75 minutes Charges/Coding Visit Charges Inpatient E&M: 27754 Init Hosp L3
[2022-07-12 18:05] LABS: Bedside Glucose 153 mg/dL (74-106)
--- NOTE | 2022-07-12 18:36 | NURSING ---
Addendum entered by Yaa Becerra 07/12/22 18:39: Pt's dialysis schedule is [facility] Original Note: This RN talked to pt's sister. Sister updated me on patient's med list. Her sister reports that the pt did have dialysis today (07/12) and she is not sure who the pt's dialysis doctor is. Sister states that she thinks the pt goes to [facility]. Will continue to try to figure out who pt's doctor is.
[2022-07-12] MEDS: Albuterol 2.5 MG/3 ML VIAL.NEB. INHALATION (19:36)
[2022-07-12] MEDS: Torsemide 100 MG Tablet 50 MG PO (20:07)
[2022-07-12] MEDS: APIXABAN 5 MG TABLET PO (20:07)
[2022-07-12] MEDS: Carvedilol 6.25 MG Tablet PO (20:07)
[2022-07-12] MEDS: hydrALAZINE 50 MG Tablet 100 MG PO (20:07)
[2022-07-12] MEDS: Atorvastatin Calcium 80 MG Tablet PO (20:08)
[2022-07-12 23:25] LABS: Bedside Glucose 142 mg/dL (74-106)
[2022-07-13] VITALS (10 sets, daily range): BP systolic 103–140; BP diastolic 57–86; PULSE 62–69; RESP 16–20; TEMP 36.8–37.1; O2SAT 87–99
[2022-07-13 05:11] LABS: Absolute Lymphocyte Count 0.65 X10^3/uL (0.83-4.51); Absolute Neutrophil Count 4.3 X10^3/uL (2.0-7.7); Basophil# 0.02 X10^3/uL; Basophil% 0.3 % (0-1); Eosinophil# 0.45 X10^3/uL; Eosinophils% 7.2 % (0-5); Hematocrit 28.4 % (37-47); Hemoglobin 8.8 g/dL (12.0-15.0); Lymphocyte # 0.65 X10^3/ul (0.83-4.51); Lymphocyte % 10.4 % (19-41); Mean Corpuscular Hgb 32.4 pg (27.0-32.0); Mean Corpuscular Volume 104.4 fL (81-99); Mean Platelet Vol. 12.8 fl (6.2-12.0); Monocyte# 0.87 X10^3/uL; Monocyte% 13.9 % (0-10); NRBC Flagged by Analyzer 0 % (0-5); Neutrophil # 4.25 X10^3/uL (2.7-7.7); Neutrophil % 67.9 % (47-70); Platelet Count 106 K/mm3 (150-450); RBC Distribution Width CV 15.5 % (11.6-14.6); RBC Distribution Width SD 58.4 fl (35.1-43.9); Red Blood Count 2.72 M/mm3 (4.2-5.4); White Blood Count 6.3 K/mm3 (4.4-11.0)
[2022-07-13] MEDS: hydrALAZINE 50 MG Tablet 100 MG PO ×2 (06:38→21:43)
[2022-07-13 07:01] LABS: Bedside Glucose 120 mg/dL (74-106)
[2022-07-13] MEDS: Albuterol 2.5 MG/3 ML VIAL.NEB. INHALATION ×2 (07:14→19:22)
[2022-07-13] MEDS: Insulin Lispro 100 UNIT/ML INSULN.PEN SC ×3 (07:59→21:44)
[2022-07-13] MEDS: Aspirin 81 MG TAB.CHEW PO (07:59)
[2022-07-13] MEDS: Potassium Chloride Oral Tablet 10 MEQ PO ×2 (07:59→16:13)
[2022-07-13] MEDS: Insulin Glargine-YFGN 100 UNIT/ML Pen 20 UNIT SC (07:59)
[2022-07-13] MEDS: Acetaminophen 325 MG Tablet 650 MG PO ×3 (08:02→21:44)
[2022-07-13 08:16] LABS: Bedside Glucose 128 mg/dL (74-106)
[2022-07-13] MEDS: amLODIPine 10 MG Tablet PO (10:21)
[2022-07-13] MEDS: Carvedilol 6.25 MG Tablet PO ×2 (10:21→21:43)
[2022-07-13] MEDS: APIXABAN 5 MG TABLET PO ×2 (10:21→21:43)
[2022-07-13] MEDS: Torsemide 100 MG Tablet 50 MG PO ×2 (10:21→21:43)
[2022-07-13] MEDS: Allopurinol 100 MG Tablet PO (10:21)
[2022-07-13] MEDS: Ceftriaxone 1 GM/50 ML BAG IV (10:21)
[2022-07-13 12:00] LABS: Bedside Glucose 262 mg/dL (74-106)
[2022-07-13 12:49] LABS: Color, Urine Yellow (Yellow); Glucose, Dipstick Normal (Normal); Ketone-Dipstick Negative (Negative); Leukocyte Esterase-Dipstick 25 /ul (Negative); Mucous, Urine 0 SEEN /hpf (<or=2+); Nitrite-Dipstick Negative (Negative); Occult Blood-Urine Negative /ul (Negative); Protein-Dipstick 100 mg/dl (Negative); Red Blood Cells-Urine 0 SEEN /hpf (0-5); Urine Clarity Sl. Cloudy (Clear); Urine Urobilinogen Normal (Normal)
[2022-07-13 12:55] LABS: Urine Bilirubin Dipstick 1 mg/dL (Negative)
[2022-07-13 12:56] LABS: Squamous Epithelial Cells - UA 0-5 SEEN /hpf (5-10); White Blood Cells 0-5 SEEN /hpf (0-5)
[2022-07-13 12:57] LABS: Bacteria 1+ /hpf (None Seen)
[2022-07-13 16:45] LABS: Bedside Glucose 82 mg/dL (74-106)
--- NOTE | 2022-07-13 18:27 | PN.HOSP_ITS ---
Reason for Visit Reason for Visit: Diagnoses Pneumonia, unspecified organism (07/12/22) Subjective Subjective Patient was seen and examined today, she is up in a chair and she is not complaining of any shortness of breath. An attempt was made to wean the patient today unsuccessfully, she was at 87% on room air. Patient has no complaints of any fever or chills. White blood cell count remains normal. Objective Data Objective Data Vital Signs: Vital Signs Temp Pulse Resp BP Pulse Ox O2 Del Method O2 Flow Rate 98.8 F 65 18 103/64 87 Nasal Cannula 2 07/13/22 14:15 07/13/22 14:15 07/13/22 14:15 07/13/22 14:15 07/13/22 14:15 07/13/22 14:15 07/13/22 14:15 Oxygen Flow Rate (L/min) [ 2 AMBULATING with Oxygen #1] Oxygen Flow Rate (L/min) [At 2 REST with Oxygen] Oxygen Flow Rate (L/min) 2 Oxygen Delivery Method Nasal Cannula Weight: 99.2 kg Body Mass Index (BMI) 41.3 Intake & Output: Intake and Output for Last 24 Hours 07/11/22 07/12/22 07/13/22 23:59 23:59 23:59 Intake Total 305 / 605 655 / 655 Output Total 200 / 200 Balance 305 / 605 455 / 455 Lab / Micro Data Result Diagrams: 07/13/22 04:38 07/12/22 13:45 Labs: Laboratory Results - last 24 hr 07/12/22 23:01: POC Glucose 142 H 07/13/22 04:07: Urine Color Cancelled, Urine Clarity Cancelled, Urine pH Cancelled, Ur Specific [place] Cancelled, U Specif Grav (Refrac) Cancelled, Urine Protein Cancelled, Urine Glucose (UA) Cancelled, Urine Ketones Cancelled, Urine Occult Blood Cancelled, Urine Nitrite Cancelled, Urine Bilirubin Cancelle d, Urine Urobilinogen Cancelled, Ur Leukocyte Esterase Cancelled, Urine RBC Cancelled, Urine WBC Cancelled, Ur Squamous Epith Cells Cancelled, Ur Transition Epith Cell Cancelled, Ur Renal Epithelial Cell Cancelled, Calcium Oxalate Crystal Cancelled, Uric Acid Crystals Cancelled, Triple Phos Crystals Cancelled, Other Crystals Cancelled, Amorphous Sediment Cancelled, Urine Bacteria Cancelled, Hyaline Casts Cancelled, Fine Granular Casts Cancelled, Coarse Granular Casts Cancelled, Waxy Casts Cancelled, RBC Casts Cancelled, WBC Casts Cancelled, Urine Mucus Cancelled, Urine Trichomonas Cancelled, Urine Yeast Cancelled 07/13/22 04:38: WBC 6.3, RBC 2.72 L, Hgb 8.8 L, Hct 28.4 L, MCV 104.4 H, MCH 32.4 H, MCHC 31.0 L, RDW Std Deviation 58.4 H, RDW Coeff of [place] 15.5 H, Plt Count 106 L, MPV 12.8 H, Immature Gran % (Auto) 0.300, Neut % (Auto) 67.9, Lymph % (Auto) 10.4 L, [place] % (Auto) 13.9 H, Eos % (Auto) 7.2 H, Baso % (Auto) 0.3, Absolute Neuts (auto) 4.3, Absolute Lymphs (auto) 0.65 L, Nucleated RBC % 0 07/13/22 06:35: POC Glucose 120 H 07/13/22 07:48: POC Glucose 128 H 07/13/22 11:13: POC Glucose 262 H 07/13/22 12:35: Urine Color Yellow, Urine Clarity Sl. Cloudy, Urine pH 7.0, Ur Specific [place] 1.010, Urine Protein 100 H, Urine Glucose (UA) Normal, Urine Ketones Negative, Urine Occult Blood Negative, Urine Nitrite Negative, Urine Bilirubin 1 H, Urine Urobilinogen Normal, Ur Leukocyte Esterase 25 H, Urine RBC 0 SEEN, Urine WBC 0-5 SEEN, Ur Squamous Epith Cells 0-5 SEEN, Urine Bacteria 1+, Urine Mucus 0 SEEN 07/13/22 16:15: POC Glucose 82 Micro: Microbiology 07/13/22 12:35 Urine, Clean Catch Legionella Antigen - Final 07/13/22 12:35 Urine, Clean Catch Streptococcus pneumoniae Antigen (M - Final 07/13/22 04:07 Sputum, Expectorated/Coughed Gram Stain - Final 07/12/22 13:45 Nasal Secretion SARS-CoV-2 & FLU Antigen (Rapid) - Final Physical Exam Narrative alert Constitutional Narrative: Patient is morbidly obese General Appearance: cooperative, well kempt and well developed Orientation / Consciousness: awake and oriented to person HEENT normocephalic and moist oral mucous membranes HEENT Narrative: There are areas of ecchymosis noted over the patient's face from a previous fall recently Eyes PERRL, EOMs intact bilaterally and conjunctivae normal Neck supple, no JVD, thyroid normal and no carotid bruits General: trachea midline Resp normal respiratory effort, no retractions, no use of accessory muscles, occasional expiratory rhonchi were noted at the right lung base Cardio regular rate, regular rhythm, S1 normal heart sound, S2 normal heart sound, no murmurs, no rub and no gallops GI normal to inspection, nondistended, normoactive bowel sounds, soft to palpation, non-tender and non-distended Extremity no clubbing, cyanosis or edema Skin no rashes or lesions noted General Skin Exam: no breakdown Neuro oriented x3, CN's II-XII intact bilaterally, moves all extremities, no focal motor deficits and no sensory deficits noted Sensorium / Orientation: awake, alert, oriented to person and oriented to place Speech: speech normal Psych Psych Narrative: Patient is a poor informant, she is able to give some medical information but most of the time states ask my sister, she takes care of me Assessment & Plan Assessment/Plan (1) Community acquired pneumonia: PLAN: Plan 1. Right lower lobe community-acquired pneumonia-patient will be admitted to [facility], she continues on IV Rocephin and Zithromax day #2, aerosol treatments will be administered, labs will be obtained tomorrow morning #2 hypoxia secondary to right lower lobe community-acquired pneumonia-patient is mildly hypoxic, I will attempt to wean oxygen if possible #3 end-stage renal disease on dialysis-patient states her dialysis days are Thursday, , and Thursday, her dialysis physician is in [place], I called Dr. Sanchez (nephrology) and had him consult on the patient, she will be seen tomorrow. #4 recent fall with contusions of the face scalp and neck-supportive care is being given, PT and OT are seeing the patient #5 coronary artery disease-stable at this time, continue present medications #6 cerebrovascular disease with previous stroke in 2019 with cognitive impairment-complicates care, medical course, recovery, and prognosis, patient will remain on her present medications Total clinical time spent by myself addressing patient's medical issues, reviewing all of her data, and collaborating with patient's care team: 36 minutes Charges/Coding Visit Charges Inpatient E&M: 15750 Subs Hosp L2
[2022-07-13] MEDS: Atorvastatin Calcium 80 MG Tablet PO (21:44)
[2022-07-13 22:40] LABS: Bedside Glucose 188 mg/dL (74-106)
[2022-07-14] VITALS (12 sets, daily range): BP systolic 118–121; BP diastolic 49–64; PULSE 57–64; RESP 16–20; TEMP 36.3–37.1; O2SAT 93–97
[2022-07-14] MEDS: hydrALAZINE 50 MG Tablet 100 MG PO ×3 (05:54→21:47)
[2022-07-14 06:56] LABS: Bedside Glucose 112 mg/dL (74-106)
[2022-07-14] MEDS: Albuterol 2.5 MG/3 ML VIAL.NEB. INHALATION ×3 (07:02→19:22)
[2022-07-14] MEDS: Potassium Chloride Oral Tablet 10 MEQ PO ×2 (07:50→16:59)
[2022-07-14] MEDS: Aspirin 81 MG TAB.CHEW PO (07:50)
[2022-07-14] MEDS: Insulin Glargine-YFGN 100 UNIT/ML Pen 20 UNIT SC (09:25)
[2022-07-14] MEDS: Insulin Lispro 100 UNIT/ML INSULN.PEN SC ×3 (09:26→21:45)
[2022-07-14] MEDS: Carvedilol 6.25 MG Tablet PO ×2 (09:27→21:43)
[2022-07-14] MEDS: Torsemide 100 MG Tablet 50 MG PO ×2 (09:28→21:42)
[2022-07-14] MEDS: amLODIPine 10 MG Tablet PO (09:29)
[2022-07-14] MEDS: Allopurinol 100 MG Tablet PO (09:29)
[2022-07-14] MEDS: APIXABAN 5 MG TABLET PO ×2 (09:29→21:43)
[2022-07-14] MEDS: Acetaminophen 325 MG Tablet 650 MG PO ×2 (09:36→17:05)
--- NOTE | 2022-07-14 11:40 | CASEMGMT ---
SAPNA WINN Assessment: Face to Face with pt for initial transition planning/care coordination assessment. SAPNA WINN introduced self and role at [facility], pt voices understanding and consents to assessment. Pt is A/O to self and place, not time. Pt had difficulty answering assessment questions. She requests SAPNA WINN call her sister to ask questions. Assessment completed between pt and tc with sister Stephy. Stephy reports pt has brain damage from a stroke in 2019. Care providers, pharmacy, and demographics verified/updated. Admitting Dx: R lower lobe pneumonia, hypoxia, blunt trauma PCP:Page Sutton [employer] Specialists:[facility] cardio; Juan C, pulm; [facility] out of [place] for nephro- pt nor sister knew the name Preferred Pharmacy: [facility] Insurance: [facility] Dual, [facility] Prescription Benefit: yes LNOK: Stephy Roberts, sister; Pedro Luis Davis, brother Living Arrangements: Pt lives with sister in a mobile home with 5 steps to enter with a rail. Pt sister assists pt with bathing as well as [place]. Pt sister handles pt meals, laundry and housekeeping tasks. Pt denies concerns at home. Transportation: Pt sister transports pt as well as [facility]. DME/HHC/SNF: Pt has a rollator at home and uses if she ambulates outdoors. Pt has had [facility] in the past and has been to [facility]. Pt states no concerns with going home at time of dc. Pt sister states pt will return home. She prefers pt to go back to [place] 5 days per week as she gets bathed there, receives meals and therapy. Pt sister denies need for HHC as pt does not get home from [place] until 3pm daily. She states she prefers [place] as she needs to work and cannot lose her home. Pt receives dialysis on / at 4:45am with transport from [place]. Discussed verbal local in network DME lists should pt need oxygen, pt sister chooses [employer] as pt has used them in the past. Pt has a CM through [facility] named Casie Arevalo. Updated SW. Pt and sister deny further concerns/needs. CM to follow. Advised pt and sister to ask CM if any further question/concerns/needs arise, voices understanding. Pt Goal: Home with resuming [place] Mon-Fri Plan: Home with resuming [place] Thu-Thu, follow for home oxygen.
[2022-07-14] MEDS: Ceftriaxone 1 GM/50 ML BAG IV (11:57)
[2022-07-14] MEDS: Ezetimibe 10 MG Tablet PO (11:57)
[2022-07-14 12:11] LABS: Bedside Glucose 196 mg/dL (74-106)
--- NOTE | 2022-07-14 13:21 | PCM.CONS.R ---
Assessment & Plan Assessment/Plan (1) ESRD (end stage renal disease) on dialysis: (2) Closed head injury: (3) Community acquired pneumonia: PLAN: Plan This is a 56-year-old female with past medical history significant for end-stage renal disease on hemodialysis Thursday schedule (dialyzes in [place]), CVA, admitted for right lower lobe pneumonia and further evaluation after patient had fallen hitting her head. Work-up included CT of head which did not show any acute pathology, CT cervical spine no acute pathology, CT maxillofacial no visible fracture, mild soft tissue swelling above the left forehead, chest x-ray right lower lobe infiltrate. We will continue to provide dialysis for Ms. Antoine. No acute indication for CAREER DEVELOPER today, will plan for dialysis tomorrow over 4 hours and attempt fluid removal as patient/blood pressure tolerates. Patient has a history of anemia of chronic disease, current hemoglobin trends are acceptable. We will monitor hemoglobin trends. Current blood pressures acceptable. Patient is on IV antibiotics for pneumonia. Further orders forthcoming as hospitalization evolves, thank you for allowing us participate in the care of Ms. Antoine HPI Consult Data Date of Consult: 07/14/22 HPI Narrative HPI Narrative: ZAYDA ANTOINE, is a 56 F who brought to the emergency room for evaluation after patient had fallen and hit her head. Patient had fallen about 4 days prior to presenting to the emergency room, she was evaluated in different emergency room and discharged to home. Patient continued to have headache with nausea and vomiting therefore was brought to [facility] emergency room for evaluation and subsequently admitted. Patient has a difficult time recalling recent events. We were consulted for hemodialysis needs. Patient states that she dialyzes on a Thursday, , Thursday schedule but is unable to recall what kidney center she dialyzes at. Patient does report she last dialyzed on Thursday. Patient states to contact her sister for other information. Information was gathered from chart and staff. [facility] Medical History Acute renal injury due to circulatory failure Anxiety Asthma Atherosclerosis of coronary artery of [place] heart without angina pectoris Bilateral carotid bruits Cardiology follow-up encounter Chronic heart failure with preserved ejection fraction (HFpEF) COVID-19 (01/20/21) Debility Depression Diabetes Easy bruising ESRD (end stage renal disease) on dialysis Essential hypertension Former smoker Generalized weakness GERD (gastroesophageal reflux disease) Headache History of cholelithiasis History of non-ST elevation myocardial infarction (NSTEMI) (01/20/21) History of renal calculi Hyperlipidemia Hypoxia Inability to walk Insulin dependent diabetes mellitus Ischemic cerebrovascular accident (CVA) (04/2018) Kidney disease Low iron Malignant hypertension Morbid obesity Non-STEMI (non-ST elevated myocardial infarction) (01/20/21) Respiratory insufficiency Type 2 diabetes mellitus without complication Wears glasses Home Medications aspirin 81 mg chewable tablet 81 mg PO DAILY@0800 HEART HEALTH 07/15/18 [History Last Taken 05/27/21] apixaban 5 mg tablet 5 mg PO BID BLOOD THINNER 08/04/18 [History Last Taken 01/19/21] atorvastatin 80 mg tablet 80 mg PO QHS CHOLESTEROL 08/04/18 [History Last Taken 01/19/21] torsemide 100 mg tablet 50 mg PO BID diuretic 04/14/19 [History Last Taken 05/27/21] melatonin 5 mg tablet 5 mg PO HS PRN Sleep 08/03/20 [History Last Taken 01/19/21] allopurinol 100 mg tablet 100 mg PO DAILY gout 09/20/20 [History Last Taken 01/19/21] carvedilol 12.5 mg tablet 6.25 mg PO BID blood pressure 09/20/20 [History Last Taken 05/27/21] hydralazine 100 mg tablet 100 mg PO TID blood pressure 09/20/20 [History Last Taken 05/27/21] acetaminophen 325 mg tablet (Tylenol) 650 mg PO Q6H PRN PRN Pain 1-10 Or Fever #0 tabs 10/03/20 [Rx Last Taken Unknown] amlodipine 10 mg tablet 10 mg PO DAILY blood pressure 01/20/21 [History Last Taken 05/27/21] potassium chloride 10 mEq tablet,extended release(part/cryst) 10 meq PO BID supplement 01/20/21 [History Last Taken 05/27/21] insulin aspart U-100 100 unit/mL (3 mL) subcutaneous pen (Novolog FlexPen U-100 Insulin aspart) 5 unit subcut BID blood sugar 03/21/21 [History Last Taken Unknown] insulin glargine U-300 conc 300 unit/mL (1.5 mL) subcutaneous pen (Toujeo SoloStar U-300 Insulin) 20 unit subcut BREAKFAST diabetes 03/21/21 [History Last Taken Unknown] cholecalciferol (vitamin D3) 50 mcg (2,000 unit) capsule 50 mcg DAILY Check with primary doctor 07/12/22 [History Last Taken Unknown] ezetimibe 10 mg tablet 10 mg DAILY Check with primary doctor 07/12/22 [History Last Taken Unknown] nystatin 100,000 unit/gram topical powder (Nyamyc) 1 applic topical BID PRN RASH/YEAST 07/12/22 [History Last Taken Unknown] vitamin B complex-vitamin C-folic acid 0.8 mg tablet (Nephro-Todd) 1 tab DAILY Check with primary doctor 07/12/22 [History Last Taken Unknown] Allergy/AdvReac Type Severity Reaction Status Date / Time No Known Allergies Allergy Verified 06/26/21 08:32 Family History Mother Diabetes Heart disease Hypertension Father Hypertension Heart disease Brother Heart disease Hypertension Sister Heart disease Diabetes Surgical History History of appendectomy History of arteriovenostomy for renal dialysis (~03/2021) History of History of cholecystectomy History of coronary artery stent placement (06/2016) History of left heart catheterization (05/27/21) Social History Smoking Status: Former smoker alcohol intake: never ROS ROS Narrative As per HPI Lab / Micro Data Result Diagrams: 07/13/22 04:38 07/12/22 13:45 Labs: Laboratory Results - last 24 hr 07/13/22 16:15: POC Glucose 82 07/13/22 21:42: POC Glucose 188 H 07/14/22 05:52: POC Glucose 112 H 07/14/22 11:27: POC Glucose 196 H Micro: Microbiology 07/13/22 04:07 Sputum, Expectorated/Coughed Gram Stain - Final 07/13/22 04:07 Sputum, Expectorated/Coughed Respiratory Culture - Preliminary Appears to be normal respiratory los. Further studies to follow. 07/13/22 12:35 Urine, Clean Catch Legionella Antigen - Final 04/16/23 12:35 Urine, Clean Catch Streptococcus pneumoniae Antigen (M - Final
--- NOTE | 2022-07-14 16:26 | CHAPLAIN ---
Type of Pastoral Visit _x__ Initial Visit ___ Follow-up Visit ___ On-call Visit ___ General Patient Visit ___ Spiritual Assessment ___ Family Conference ___ Bereavement ___ Rapid Response ___ Code Blue ___ Other (describe below) Pastoral Care Referral From _x__ Patient ___ Family ___ Nurse ___ Physician ___ Inspector Penetrant ___ Grain Mill Products Inspector ___ Other (describe below) Sacrament/Intervention _x__ Active listening ___ Anointing ___ Confucianist ___ Bereavement ___ Communion ___ [place] exploration ___ _x__ Life review _x__ Prayer ___ Reconciliation ___ Sacrament of Sick _x__ Supportive presence ___ Wedding ___ Other (describe below) Pastoral Comments patient is very expressive, at times cheerful and at times tearful; pt explains her fall and her sadness; pt states that I love orthodoxy but does not indicate where she worships or how she gets there; pt is talkative and welcomes the presence and prayers of this director telehealth
--- NOTE | 2022-07-14 16:50 | PN.HOSP_ITS ---
Reason for Visit Reason for Visit: Diagnoses Pneumonia, unspecified organism (07/12/22) Subjective Subjective Follow-up for fall, pneumonia. Objective Data Objective Data Vital Signs: Vital Signs Temp Pulse Resp BP Pulse Ox O2 Del Method O2 Flow Rate 98.2 F 57 L 16 121/49 H 93 Room Air 2 07/14/22 13:50 07/14/22 13:57 07/14/22 13:50 07/14/22 13:50 07/14/22 14:01 07/14/22 14:01 07/14/22 12:30 Oxygen Flow Rate (L/min) [ 2 AMBULATING with Oxygen #1] Oxygen Flow Rate (L/min) [At 2 REST with Oxygen] Oxygen Flow Rate (L/min) 2 Oxygen Delivery Method Room Air Weight: 218 lb 11.177 oz Body Mass Index (BMI) 41.3 Intake & Output: Intake and Output for Last 24 Hours 07/12/22 07/13/22 07/14/22 23:59 23:59 23:59 Intake Total 305 / 605 655 / 755 505 / 505 Output Total 200 / 200 Balance 305 / 605 455 / 555 505 / 505 Lab / Micro Data Result Diagrams: 07/13/22 04:38 07/12/22 13:45 Labs: Laboratory Results - last 24 hr 07/13/22 21:42: POC Glucose 188 H 07/14/22 05:52: POC Glucose 112 H 07/14/22 11:27: POC Glucose 196 H Micro: Microbiology 07/13/22 04:07 Sputum, Expectorated/Coughed Gram Stain - Final 07/13/22 04:07 Sputum, Expectorated/Coughed Respiratory Culture - Preliminary Appears to be normal respiratory los. Further studies to follow. 07/13/22 12:35 Urine, Clean Catch Legionella Antigen - Final 07/13/22 12:35 Urine, Clean Catch Streptococcus pneumoniae Antigen (M - Final 07/12/22 13:45 Nasal Secretion SARS-CoV-2 & FLU Antigen (Rapid) - Final Physical Exam Narrative Seen and examined. Since patient fell down face forward and has swelling bruise over forehead. Mild hematoma on forehead. She also has bruise on the knees. Mild pain over left side of abdomen due to fall. She states he smoked for about 1 year in her teenage. Does not have COPD history. Pulse ox 93% on room air. Physical exam General: Alert, Oriented x3, Cooperative HEENT: Atraumatic, PERRLA, EOMI, Normocephalic Oral: Oral mucosa moist. No Gingival or Mucosal Lesions/ Ulcerations Neck: Supple, No JVD, Negative Carotid Bruits Lungs: Air entry diminished in bilateral lung bases. Bibasilar fine crepitations. Cardiovascular: Regular rate, Regular Rhythm, Normal S1, Normal S2, No murmurs Abdomen: Bowel Sounds Present, Soft, Non Tender, Non-Distended : On hemodialysis. No renal angle tenderness. No suprapubic tenderness. Extremities: No edema, Capillary Refill Less than 3 Seconds Skin: No rashes, No breakdown Musculoskeletal: Left upper extremity AV fistula. Thrill present. No Tenderness to Palpation of Joints or Extremities Neurological: Cranial nerves II-XII grossly intact, DTR 2+/4 and Symmetrical, Neuro grossly intact Psych/Mental Status: Flat affect. Dementia. Assessment & Plan Assessment/Plan (1) Community acquired pneumonia: PLAN: Plan 1.? Right lower lobe community-acquired pneumonia-patient will be [facility] to [facility], she continues on IV Rocephin and Zithromax. Prelim sputum culture appears normal respiratory los. Urinary antigens are negative. SARS-CoV-2 and flu antigen are negative. #2 hypoxia secondary to right lower lobe community-acquired pneumonia: Patient was on 2 L of oxygen currently weaned off. #3 end-stage renal disease on dialysis-patient states her dialysis days are Thursday, , and Thursday, her dialysis physician is in [place], Dr. Sanchez, the filler feeder is consulted. #4 recent fall with contusions of the face scalp and neck small superficial hematoma on forehead.-supportive care is being given, PT and OT are seeing the patient #5 coronary artery disease-no acute chest pain. No acute change. Continue present medications #6 cerebrovascular disease with previous stroke in 2019 with vascular dementia- complicates care, medical course, recovery, and prognosis, patient will remain on her present medications Microbiology Past 72 Hours 07/13/22 04:07 Sputum, Expectorated/Coughed Gram Stain - Final 07/13/22 04:07 Sputum, Expectorated/Coughed Respiratory Culture - Preliminary Appears to be normal respiratory los. Further studies to follow. 07/13/22 12:35 Urine, Clean Catch Legionella Antigen - Final 07/13/22 12:35 Urine, Clean Catch Streptococcus pneumoniae Antigen (M - Final 07/12/22 13:45 Nasal Secretion SARS-CoV-2 & FLU Antigen (Rapid) - Final Laboratory Results 07/13/22 21:42: POC Glucose 188 H 07/14/22 05:52: POC Glucose 112 H 07/14/22 11:27: POC Glucose 196 H Charges/Coding Visit Charges Inpatient E&M: 68020 Subs Hosp L2
[2022-07-14 17:21] LABS: Bedside Glucose 127 mg/dL (74-106)
[2022-07-14] MEDS: Atorvastatin Calcium 80 MG Tablet PO (21:43)
[2022-07-14 22:05] LABS: Bedside Glucose 167 mg/dL (74-106)
[2022-07-15] VITALS (10 sets, daily range): BP systolic 113–134; BP diastolic 48–74; PULSE 60–77; RESP 16–21; TEMP 36.3–36.8; O2SAT 91–97; BMI 42.2
[2022-07-15 06:22] LABS: Absolute Lymphocyte Count 0.64 X10^3/uL (0.83-4.51); Absolute Neutrophil Count 3.3 X10^3/uL (2.0-7.7); Basophil# 0.02 X10^3/uL; Basophil% 0.4 % (0-1); Eosinophil# 0.41 X10^3/uL; Eosinophils% 8.6 % (0-5); Hematocrit 26.7 % (37-47); Hemoglobin 8.6 g/dL (12.0-15.0); Lymphocyte # 0.64 X10^3/ul (0.83-4.51); Lymphocyte % 13.4 % (19-41); Mean Corp Hgb Conc 32.2 g/dL (32-36); Mean Corpuscular Hgb 32.6 pg (27.0-32.0); Mean Corpuscular Volume 101.1 fL (81-99); Mean Platelet Vol. 13.6 fl (6.2-12.0); Monocyte# 0.39 X10^3/uL; Monocyte% 8.1 % (0-10); NRBC Flagged by Analyzer 0 % (0-5); Neutrophil # 3.31 X10^3/uL (2.7-7.7); Neutrophil % 69.1 % (47-70); POSITIVE COUNT YES; Platelet Count 97 K/mm3 (150-450); RBC Distribution Width CV 15.1 % (11.6-14.6); RBC Distribution Width SD 54.9 fl (35.1-43.9); Red Blood Count 2.64 M/mm3 (4.2-5.4); White Blood Count 4.8 K/mm3 (4.4-11.0)
[2022-07-15 06:59] LABS: Albumin, Serum 2.7 g/dL (3.2-5.0); BUN 72 mg/dL (7-18); Calcium,Total 7.7 mg/dL (8.5-10.1); Chloride 105 mmol/L (98-107); Creatinine, Serum 7.17 mg/dL (0.55-1.02); EST Glomerular Filtration Rate 6 mL/min (>60); Est Glom Filt Rate - Afr Amer 8 mL/min (>60); Estimated Creatinine Clearance 6.61 ml/min; Glucose 102 mg/dL (74-106); Phosphorus 5.4 mg/dL (2.5-4.9); Potassium 4.2 mmol/L (3.5-5.1); Sodium Level 136 mmol/L (136-145)
[2022-07-15 07:10] LABS: Bedside Glucose 94 mg/dL (74-106)
[2022-07-15] MEDS: Albuterol 2.5 MG/3 ML VIAL.NEB. INHALATION ×2 (07:14→14:27)
[2022-07-15 08:05] LABS: Bedside Glucose 94 mg/dL (74-106)
--- NOTE | 2022-07-15 09:09 | DCINST_ITS ---
Discharge Instructions Diet Discharge Diet: 1800 Calorie Control Diet, 2000 mg Sodium Diet and Renal Diet Activity Discharge Activity: Return to Normal Activity Weight Bearing Status: Weight bearing as tolerated Dressing / Incision Call your doctor if you observe: Fever of 101 or Higher, Coldness, Increased Pain, Numbness or Tingling, Change in Color, Inability to urinate, Inability to have a bowel movement, Using more than 1 pad per hour, Shortness of breath, Dizziness, Fainting spells, Swelling in the ankles, Chest pain, Prolonged hiccupping, Increased palpitations (irregular heartbeat) and Calf discomfort Follow Up Care When: IN 2 WEEKS Test Results: Test results from this visit will be discussed in further detail at your follow- up appointment, if applicable. Discharge Plan Admission Admit Date/Time: 07/12/22 15:45 Primary Reason for Your Visit: Fall. Attending Provider: Mahamed Dunn Primary Care Provider: Page Sutton NP Consulting Providers: Sanaz Gomez ; Bill Wyman Discharge Orders/Prescriptions Prescriptions: New cefdinir 300 mg capsule 300 mg PO Q48H Qty: 2 0RF Rx Instructions: Take cefdinir after hemodialysis on days of dialysis. Continued torsemide 100 mg tablet 50 mg PO BID melatonin 5 mg tablet 5 mg PO HS PRN (Reason: Sleep) atorvastatin 80 MG tablet 80 mg PO QHS apixaban 5 MG tablet 5 mg PO BID Rx Instructions: . carvedilol 12.5 mg tablet 6.25 mg PO BID allopurinol 100 mg tablet 100 mg PO DAILY hydralazine 100 mg tablet 100 mg PO TID acetaminophen [Tylenol] 325 mg Tablet 650 mg PO Q6H PRN PRN (Reason: Pain 1-10 Or Fever) Qty: 0 0RF potassium chloride 10 mEq Tablet,Er Particles/Crystals 10 meq PO BID amlodipine 10 MG tablet 10 mg PO DAILY insulin aspart U-100 [Novolog FlexPen U-100 Insulin] 100 unit/mL (3 mL) insulin pen 5 unit SUBCUT BID Label Comments: AT LUNCH AND DINNER. IF BS LESS THAN 80 DO NOT GIVE Toujeo SoloStar U-300 Insulin 300 unit/mL (1.5 mL) insulin pen 20 unit SC BREAKFAST nystatin [Nyamyc] 100,000 unit/gram powder 1 applic topical BID PRN (Reason: RASH/YEAST) Protocol: *Topical Application Instructions APPLICATION INSTRUCTIONS: AFFECTED AREA Nephro-Todd 0.8 mg tablet 1 tab DAILY ezetimibe 10 mg tablet 10 mg DAILY cholecalciferol (vitamin D3) 50 mcg (2,000 unit) capsule 50 mcg DAILY Held aspirin 81 MG tablet,chewable 81 mg PO DAILY@0800 Hold Instructions: Hold baby aspirin as patient is on Eliquis. Referrals / Follow Up: Ketty Granger MD [Med Staff - Consulting] - Within 2 Weeks Tim Patterson MD [Med Staff - Active Staff] - Within 1 Month (For pneumonia. PFT) Page Sutton INSULATION PACKER, INSULATION PACKER-C [Primary Care Provider] - Disposition Disposition (needs filled in before D/C Order can be placed): Home Health Service
--- NOTE | 2022-07-15 09:34 | NURSING ---
AM medications delayed due to patient receiving dialysis.
--- NOTE | 2022-07-15 10:17 | PN.RENAL_ITS ---
Subjective Subjective Patient resting in bed. Receiving dialysis. No overnight events. No complaints. Objective Data Objective Data Vital Signs: Vital Signs Temp Pulse Resp BP Pulse Ox O2 Del Method O2 Flow Rate 97.4 F L 71 18 113/48 L 94 Room Air 2 07/15/22 02:42 07/15/22 07:10 07/15/22 07:10 07/15/22 06:27 07/15/22 07:51 07/15/22 07:51 07/14/22 12:30 Oxygen Flow Rate (L/min) [ 2 AMBULATING with Oxygen #1] Oxygen Flow Rate (L/min) [At 2 REST with Oxygen] Oxygen Flow Rate (L/min) 2 Oxygen Delivery Method Room Air Weight: 101.4 kg Body Mass Index (BMI) 42.2 Intake & Output: Intake and Output for Last 24 Hours 07/13/22 07/14/22 07/15/22 23:59 23:59 23:59 Intake Total 655 / 755 505 / 505 600 / 600 Output Total 200 / 200 250 / 250 Balance 455 / 555 505 / 505 350 / 350 Lab / Micro Data Result Diagrams: 07/15/22 05:54 07/15/22 05:54 Labs: Laboratory Results - last 24 hr 07/14/22 11:27: POC Glucose 196 H 07/14/22 16:57: POC Glucose 127 H 07/14/22 21:44: POC Glucose 167 H 07/15/22 05:54: Sodium 136, Potassium 4.2, Chloride 105, Carbon Dioxide 26.0, BUN 72 H, Creatinine 7.17 H, Estim Creat Clear Calc 6.61, Est GFR (MDRD) Af Amer 8 L, Est GFR (MDRD) Non-Af 6 L, BUN/Creatinine Ratio 10.0, Glucose 102, Calcium 7.7 L, Phosphorus 5.4 H, Albumin 2.7 L 07/15/22 05:54: WBC 4.8, RBC 2.64 L, Hgb 8.6 L, Hct 26.7 L, MCV 101.1 H, MCH 32.6 H, MCHC 32.2, RDW Std Deviation 54.9 H, RDW Coeff of [place] 15.1 H, Plt Count 97 L, MPV 13.6 H, Immature Gran % (Auto) 0.400, Neut % (Auto) 69.1, Lymph % ( Auto) 13.4 L, [place] % (Auto) 8.1, Eos % (Auto) 8.6 H, Baso % (Auto) 0.4, Absolute Neuts (auto) 3.3, Absolute Lymphs (auto) 0.64 L, Nucleated RBC % 0 07/15/22 06:28: POC Glucose 94 07/15/22 07:45: POC Glucose 94 Micro: Microbiology 07/13/22 04:07 Sputum, Expectorated/Coughed Gram Stain - Final 07/13/22 04:07 Sputum, Expectorated/Coughed Respiratory Culture - Final Mixed normal respiratory los. No Streptococcus pneumoniae, beta-hemolytic Streptococcus or Staphylococcus aureus isolated. 07/13/22 12:35 Urine, Clean Catch Legionella Antigen - Final 07/13/22 12:35 Urine, Clean Catch Streptococcus pneumoniae Antigen (M - Final 07/12/22 13:45 Nasal Secretion SARS-CoV-2 & FLU Antigen (Rapid) - Final Physical Exam Narrative Alert and oriented. No apparent distress. Lung sounds clear anteriorly. Breath sounds posterior bases. No rhonchi or rales S1, S2, RRR Abdomen soft, nontender No pitting edema AV fistula accessed for dialysis Assessment & Plan Assessment/Plan (1) ESRD (end stage renal disease) on dialysis: (2) Closed head injury: (3) Community acquired pneumonia: PLAN: Plan - ESRD on hemodialysis Thursday, , Thursday schedule (dialyzes in [facility]). Dialyzing today on 3K bath, over 3.5 hours and attempting around 2.5 L fluid removal. We will continue to provide dialysis support during hospitalization - right lower lobe pneumonia; IV antibiotics ceftriaxone and azithromycin. On Room air - s/p fall; CT of head which did not show any acute pathology, CT cervical spine no acute pathology, CT maxillofacial no visible fracture, mild soft tissue swelling above the left forehead -Hypertension; blood pressures acceptable on amlodipine, carvedilol, hydralazine, torsemide. Tolerating fluid removal with dialysis -Anemia of chronic disease. Hemoglobin trends acceptable -Phosphorus 5.4 and near goal.
--- NOTE | 2022-07-15 11:31 | CASEMGMT ---
Addendum entered by Martine Norris 07/15/22 15:49: MD Miller shared intent to discharge pt after 5pm this day. RAN completed green sheet with instruction for [facility] Dentist to fax D/C summary to [facility] and provided fax number. Original Note: Social Work SW spoke to Casie Arevalo [facility] Home case folder for pt. Casie shared pt receives an emergency response, up to 14 home delivered meals per week and 5 days of adult day care at [place]. Casie requested pt's discharge summary be faxed to [phone] when pt is medically ready and clear to leave the hospital. RAN shared intent to send the document when pt is discharged. GERALD Talavera
[2022-07-15] MEDS: Aspirin 81 MG TAB.CHEW PO (13:29)
[2022-07-15] MEDS: Potassium Chloride Oral Tablet 10 MEQ PO ×2 (13:30→17:07)
[2022-07-15] MEDS: Carvedilol 6.25 MG Tablet PO (13:31)
[2022-07-15] MEDS: APIXABAN 5 MG TABLET PO (13:33)
[2022-07-15] MEDS: amLODIPine 10 MG Tablet PO (13:34)
[2022-07-15] MEDS: Ezetimibe 10 MG Tablet PO (13:34)
[2022-07-15] MEDS: Allopurinol 100 MG Tablet PO (13:35)
[2022-07-15] MEDS: hydrALAZINE 50 MG Tablet 100 MG PO (13:36)
[2022-07-15] MEDS: Torsemide 100 MG Tablet 50 MG PO (13:37)
[2022-07-15] MEDS: Insulin Lispro 100 UNIT/ML INSULN.PEN SC ×2 (13:40→17:05)
[2022-07-15 13:46] LABS: Bedside Glucose 162 mg/dL (74-106)
--- NOTE | 2022-07-15 14:26 | CASEMGMT ---
Pt does not qualify for home oxygen. Plan to dc today.
[2022-07-15] MEDS: Ceftriaxone 1 GM/50 ML BAG IV (14:44)
--- NOTE | 2022-07-15 16:37 | DS.PCM_ITS ---
Providers Date of Admission: 07/12/22 Date of Discharge: 07/15/22 Primary Care Physician: Page Sutton, TERESA Consultations 07/13/22 18:25 Consult: Nephrology Routine Consulting Provider: Sanaz Gomez Reason for Consult: ESRD EMERGENT Consult: No MD Notified: Yes Date Notified: 07/13/22 Time Notified: 18:26 Method of Notification: Verbal Reason For Visit: RIGHT LOWER LOBE PNEUMONIA, HYPOXIA, BLUNT TRAUMA Diagnosis Discharge Diagnosis (1) ESRD (end stage renal disease) on dialysis: Status: Acute Code(s): N18.6 - End stage renal disease; Z99.2 - Dependence on renal dialysis (2) Closed head injury: Status: Acute Code(s): S09.90XA - Unspecified injury of head, initial encounter (3) Community acquired pneumonia: Status: Acute Code(s): J18.9 - Pneumonia, unspecified organism Plan This is a 56-year-old female was admitted for evaluation of vomiting headache and dry cough. Patient has some issues with memory due to previous stroke. Her sister takes care of her. On further evaluation found to have right lower lobe infiltrate, patient required 2 L of oxygen. 1.? Right lower lobe community-acquired pneumonia-patient was [facility], she continues on IV Rocephin and Zithromax.? Prelim sputum culture appears normal respiratory los.? Urinary antigens are negative.? SARS-CoV-2 and flu antigen are negative. 07/15: Patient is discharged on cefdinir 300 mg every 48 hourly based on creatinine clearance. Advised to take Ceftin 8 after dialysis on days of dialysis. Patient on Thursday and Thursday. Follow-up board liner operator. #2 hypoxia secondary to right lower lobe community-acquired pneumonia: Patient was on 2 L of oxygen currently weaned off. 07/15: Patient is weaned off oxygen. 91% on room air. #3 end-stage renal disease on dialysis-patient states her dialysis days are Thursday, , and Thursday, her dialysis physician is in [place], ? Dr. Sanchez, the board liner operator is consulted. 07/15: Patient was dialyzed today. #4 recent fall with contusions of the face scalp and neck small superficial hematoma on forehead.-supportive care is being given, PT and OT are seeing the patient 07/15: Patient had fall. Advised PT and OT. Patient on Eliquis too therefore hold baby aspirin as patient is on Eliquis. #5 coronary artery disease-no acute chest pain.? No acute change.? Continue present medications #6 cerebrovascular disease with previous stroke in 2019 with? vascular dementia- complicates care, medical course, recovery, and prognosis, patient will remain on her present medications. Discharge home with home health care. Discharge medication reconciliation done. Discharge follow-up instructions completed. Discharge process discussed with the patient and all questions were answered to patient's satisfaction. Total time spent, exact 35 minutes on discharge meds reconciliation, examination, coordination of care with nurses and ancillary staff, review of imaging and blood test and discussion with the patient on follow-up instructions. Medications at Discharge Home Medications aspirin 81 mg chewable tablet 81 mg PO DAILY@0800 HEART HEALTH 07/15/18 apixaban 5 mg tablet 5 mg PO BID BLOOD THINNER 08/04/18 atorvastatin 80 mg tablet 80 mg PO QHS CHOLESTEROL 08/04/18 torsemide 100 mg tablet 50 mg PO BID diuretic 04/14/19 melatonin 5 mg tablet 5 mg PO HS PRN Sleep 08/03/20 allopurinol 100 mg tablet 100 mg PO DAILY gout 09/20/20 carvedilol 12.5 mg tablet 6.25 mg PO BID blood pressure 09/20/20 hydralazine 100 mg tablet 100 mg PO TID blood pressure 09/20/20 acetaminophen 325 mg tablet (Tylenol) 650 mg PO Q6H PRN PRN Pain 1-10 Or Fever #0 tabs 10/03/20 amlodipine 10 mg tablet 10 mg PO DAILY blood pressure 01/20/21 potassium chloride 10 mEq tablet,extended release(part/cryst) 10 meq PO BID supplement 01/20/21 insulin aspart U-100 100 unit/mL (3 mL) subcutaneous pen (Novolog FlexPen U-100 Insulin aspart) 5 unit subcut BID blood sugar 03/21/21 insulin glargine U-300 conc 300 unit/mL (1.5 mL) subcutaneous pen (Toujeo SoloStar U-300 Insulin) 20 unit subcut BREAKFAST diabetes 03/21/21 cholecalciferol (vitamin D3) 50 mcg (2,000 unit) capsule 50 mcg DAILY Check with primary doctor 07/12/22 ezetimibe 10 mg tablet 10 mg DAILY Check with primary doctor 07/12/22 nystatin 100,000 unit/gram topical powder (Nyamyc) 1 applic topical BID PRN TYRA H/YEAST 07/12/22 vitamin B complex-vitamin C-folic acid 0.8 mg tablet (Nephro-Todd) 1 tab DAILY Check with primary doctor 07/12/22 cefdinir 300 mg capsule 300 mg PO Q48H #2 caps 07/15/22 Physical Exam Narrative Seen and examined. Patient on room air. Hypoxia resolved. Cough is better. Advised to continue incentive spirometry and Pep for 1 more week. Since patient fell down face forward and has swelling bruise over forehead. Mild hematoma on forehead. She also has bruise on the knees. Mild pain over left side of abdomen due to fall. She states he smoked for about 1 year in her teenage. Does not have COPD history. Pulse ox 93% on room air. Physical exam General: Alert, Oriented x3, Cooperative HEENT: Atraumatic, PERRLA, EOMI, Normocephalic Oral: Oral mucosa moist. No Gingival or Mucosal Lesions/ Ulcerations Neck: Supple, No JVD, Negative Carotid Bruits Lungs: Air entry diminished in bilateral lung bases. Occasional bibasilar crepitations Cardiovascular: Regular rate, Regular Rhythm, Normal S1, Normal S2, No murmurs Abdomen: Bowel Sounds Present, Soft, Non Tender, Non-Distended : On hemodialysis. No renal angle tenderness. No suprapubic tenderness. Extremities: No edema, Capillary Refill Less than 3 Seconds Skin: No rashes, No breakdown Musculoskeletal: Left upper extremity AV fistula. Thrill present. No Tenderness to Palpation of Joints or Extremities Neurological: Cranial nerves II-XII grossly intact, DTR 2+/4 and Symmetrical, Neuro grossly intact Psych/Mental Status: Flat affect. Dementia. Weight / BMI Weight Weight: 223 lb 8.78 oz Body Mass Index (BMI) 42.2 ABG / Lab / Microbiology Data Result Diagrams: 07/15/22 05:54 07/15/22 05:54 Laboratory: Laboratory Results - last 24 hr 07/14/22 16:57: POC Glucose 127 H 07/14/22 21:44: POC Glucose 167 H 07/15/22 05:54: Sodium 136, Potassium 4.2, Chloride 105, Carbon Dioxide 26.0, BUN 72 H, Creatinine 7.17 H, Estim Creat Clear Calc 6.61, Est GFR (MDRD) Af Amer 8 L, Est GFR (MDRD) Non-Af 6 L, BUN/Creatinine Ratio 10.0, Glucose 102, Calcium 7.7 L, Phosphorus 5.4 H, Albumin 2.7 L 07/15/22 05:54: WBC 4.8, RBC 2.64 L, Hgb 8.6 L, Hct 26.7 L, MCV 101.1 H, MCH 32.6 H, MCHC 32.2, RDW Std Deviation 54.9 H, RDW Coeff of [place] 15.1 H, Plt Count 97 L, MPV 13.6 H, Immature Gran % (Auto) 0.400, Neut % (Auto) 69.1, Lymph % (Auto) 13.4 L, [place] % (Auto) 8.1, Eos % (Auto) 8.6 H, Baso % (Auto) 0.4, Absolute Neuts (auto) 3.3, Absolute Lymphs (auto) 0.64 L, Nucleated RBC % 0 07/15/22 06:28: POC Glucose 94 07/15/22 07:45: POC Glucose 94 07/15/22 13:27: POC Glucose 162 H Microbiology: Microbiology 07/13/22 04:07 Sputum, Expectorated/Coughed Gram Stain - Final 07/13/22 04:07 Sputum, Expectorated/Coughed Respiratory Culture - Final Mixed normal respiratory los. No Streptococcus pneumoniae, beta-hemolytic Streptococcus or Staphylococcus aureus isolated. 07/13/22 12:35 Urine, Clean Catch Legionella Antigen - Final 07/13/22 12:35 Urine, Clean Catch Streptococcus pneumoniae Antigen (M - Final 07/12/22 13:45 Nasal Secretion SARS-CoV-2 & FLU Antigen (Rapid) - Final D/C Instructions Discharge Diet: 1800 Calorie Control Diet, 2000 mg Sodium Diet and Renal Diet Weight Bearing Status: Weight bearing as tolerated Call your doctor if you observe: Fever of 101 or Higher, Coldness, Increased Pain, Numbness or Tingling, Change in Color, Inability to urinate, Inability to have a bowel movement, Using more than 1 pad per hour, Shortness of breath, Dizziness, Fainting spells, Swelling in the ankles, Chest pain, Prolonged hiccupping, Increased palpitations (irregular heartbeat) and Calf discomfort When: IN 2 WEEKS Meaningful Use Info Meaningful Use Diagnoses (Choose all that apply): None applicable Discharge Plan Admission Admit Date/Time: 07/12/22 15:45 Primary Reason for Your Visit: Fall. Attending Provider: Mahamed Dunn Primary Care Provider: Page Sutton NP Consulting Providers: Sanaz Gomez ; Bill Wyman Discharge Orders/Prescriptions Prescriptions: New cefdinir 300 mg capsule 300 mg PO Q48H Qty: 2 0RF Rx Instructions: Take cefdinir after hemodialysis on days of dialysis. Continued torsemide 100 mg tablet 50 mg PO BID melatonin 5 mg tablet 5 mg PO HS PRN (Reason: Sleep) atorvastatin 80 MG tablet 80 mg PO QHS apixaban 5 MG tablet 5 mg PO BID Rx Instructions: . carvedilol 12.5 mg tablet 6.25 mg PO BID allopurinol 100 mg tablet 100 mg PO DAILY hydralazine 100 mg tablet 100 mg PO TID acetaminophen [Tylenol] 325 mg Tablet 650 mg PO Q6H PRN PRN (Reason: Pain 1-10 Or Fever) Qty: 0 0RF potassium chloride 10 mEq Tablet,Er Particles/Crystals 10 meq PO BID amlodipine 10 MG tablet 10 mg PO DAILY insulin aspart U-100 [Novolog FlexPen U-100 Insulin] 100 unit/mL (3 mL) insulin pen 5 unit SUBCUT BID Label Comments: AT LUNCH AND DINNER. IF BS LESS THAN 80 DO NOT GIVE Toujeo SoloStar U-300 Insulin 300 unit/mL (1.5 mL) insulin pen 20 unit SC BREAKFAST nystatin [Nyamyc] 100,000 unit/gram powder 1 applic topical BID PRN (Reason: RASH/YEAST) Protocol: *Topical Application Instructions APPLICATION INSTRUCTIONS: AFFECTED AREA Nephro-Todd 0.8 mg tablet 1 tab DAILY ezetimibe 10 mg tablet 10 mg DAILY cholecalciferol (vitamin D3) 50 mcg (2,000 unit) capsule 50 mcg DAILY Held aspirin 81 MG tablet,chewable 81 mg PO DAILY@0800 Hold Instructions: Hold baby aspirin as patient is on Eliquis. Referrals / Follow Up: Ketty Granger MD [Med Staff - Consulting] - Within 2 Weeks Tim Patterson MD [Med Staff - Active Staff] - Within 1 Month (For pneumonia. PFT) Page Sutton DERMATOLOGY PHYSICIAN ASSISTANT, DERMATOLOGY PHYSICIAN ASSISTANT-C [Primary Care Provider] - Disposition Disposition (needs filled in before D/C Order can be placed): Home Health Service Charges/Coding Visit Charges Inpatient E&M: 49710 Disch Hosp >30min
[2022-07-15 17:11] LABS: Bedside Glucose 221 mg/dL (74-106)
--- NOTE | 2022-07-18 10:41 | NURSING ---
SAPNA CM Discharge follow-up phone call LACE:11 Strata:3 Date of call:07/18/22 Time of Call:1040 Admitting diagnosis:Right Lower Lobe Pneumonia, Hypoxia, Blunt Trauma Summary of call: Spoke with patient's caregiver regarding recent hospitalization. Caregiver denies any questions or concerns regarding recent care. Caregiver instructed to contact patient's PCP with and questions or concerns.
== END 2022-07-15 18:46 | disposition home health service (06) | DRG 193 ==
LOC: ED 15:45 → MS3 17:36
PROVIDERS: Nurse Practitioner; Nurse Practitioner Adult Health; Admitting Provider Internal Medicine; Emergency Provider Emergency Medicine; PCP Nurse Practitioner Family; Visit Provider Internal Medicine
DX: J18.9 Pneumonia, unspecified organism (principal); N18.6 End stage renal disease; I13.2 Hypertensive heart and chronic kidney disease with heart failure and with stage 5 chronic kidney disease, or end stage renal disease; I50.32 Chronic diastolic (congestive) heart failure; Z68.41 Body mass index [BMI] 40.0-44.9, adult; R09.02 Hypoxemia; E11.22 Type 2 diabetes mellitus with diabetic chronic kidney disease; D63.8 Anemia in other chronic diseases classified elsewhere; E66.01 Morbid (severe) obesity due to excess calories; Z79.4 Long term (current) use of insulin; F01.50 Vascular dementia, unspecified severity, without behavioral disturbance, psychotic disturbance, mood disturbance, and anxiety; Z99.2 Dependence on renal dialysis; E11.65 Type 2 diabetes mellitus with hyperglycemia; E78.5 Hyperlipidemia, unspecified; I69.319 Unspecified symptoms and signs involving cognitive functions following cerebral infarction; S06.0X0A Concussion without loss of consciousness, initial encounter; S00.11XA Contusion of right eyelid and periocular area, initial encounter; S00.12XA Contusion of left eyelid and periocular area, initial encounter; S00.03XA Contusion of scalp, initial encounter; S10.83XA Contusion of other specified part of neck, initial encounter; W01.198A Fall on same level from slipping, tripping and stumbling with subsequent striking against other object, initial encounter; I25.10 Atherosclerotic heart disease of native coronary artery without angina pectoris; Z20.822 Contact with and (suspected) exposure to COVID-19; Z79.82 Long term (current) use of aspirin; Z79.01 Long term (current) use of anticoagulants; Z79.899 Other long term (current) drug therapy; I25.2 Old myocardial infarction; Z86.16 Personal history of COVID-19; Z87.891 Personal history of nicotine dependence; Z95.5 Presence of coronary angioplasty implant and graft; Y92.481 Parking lot as the place of occurrence of the external cause; S80.01XA Contusion of right knee, initial encounter; S80.02XA Contusion of left knee, initial encounter
CPT/HCPCS: 36415; 70450; 70486; 71045; 72125; 80048; 80069; 81001; 82803; 82962; 85025; 85610; 87070; 87205; 87428; 87449; 90937; 93005; 94640; 97162; 97165; 97530; 97535; 99252; 99285; J7030; A4216; G0257; G0463; J2405

== ENCOUNTER 2022-07-22 15:57 | Observation (INO) | payer MEDICARE, MEDICAID, SELFPAY ==
[2022-07-22 16:00] VITALS: BP 130/59; PULSE 60; RESP 18; TEMP 36.1; O2SAT 97
[2022-07-22 16:05] VITALS: BMI 42.3
--- NOTE | 2022-07-22 16:41 | CT_ITS ---
STUDY: CT BRAIN WITHOUT CONTRAST REASON FOR EXAM: Female, 56 years old. altered mental status Individualized dose optimization techniques were used for this CT. TECHNIQUE: Transaxial CT imaging of the brain was performed without administration of intravenous contrast material. COMPARISON: 07.12.22 FINDINGS: There are calcifications around the carotid artery. These are noted in the cavernous carotid arteries. Normal calvarium. Normal soft tissues. Old left MCA infarct. There is mild cerebral atrophy with widening of the extra-axial spaces and ventricular dilatation. There are areas of decreased attenuation within the white matter tracts of the supratentorial brain, consistent with microvascular disease changes. Normal basal ganglia and thalami. Normal brainstem. There is mild cerebellar atrophy. There is no intracranial hemorrhage. There are no findings of an acute ischemic infarction. There is sinus disease. ASPECTS Score for Acute Strokes: 01/06 CT/Brain/Head without Contrast IMPRESSION: There are no acute findings. Chronic involutional changes of the brain. Electronically Signed: Emery Adkins MD at 17:46 EDT ,
--- NOTE | 2022-07-22 16:42 | EKG12_ITS ---
Test Reason : GENERAL Blood Pressure : / mmHG Vent. Rate : 059 BPM Atrial Rate : 059 BPM P-R Int : 262 ms QRS Dur : 084 ms QT Int : 490 ms P-R-T Axes : 012 -06 -01 degrees QTc Int : 485 ms Sinus bradycardia with 1st degree A-V block Septal infarct , age undetermined Abnormal ECG Confirmed by JAREN REYES, ALTON ([id number]), acquisitions editor CAROLYN GROSS ([id number]) on 07/24/2022 9:05:22 AM Referred By: Confirmed By:ALTON EASTMAN MD
--- NOTE | 2022-07-22 16:43 | EX.ED.DYSGE1 ---
HPI History of Present Illness Chief Complaint: General Illness Detail of Chief Complaint: Altered mental status Informant: patient and family Narrative Narrative: Patient presents with her daughter for evaluation of altered mental status. Patient was recently hospitalized for pneumonia. She had an appointment with her primary care physician today for follow-up and was noted to be falling asleep during the exam. Nurse practitioner seeing her was concerned and asked them to bring her to the emergency room. Daughter states that she feels the patient had some slurred speech last evening. She states that the patient has been coming home from daycare and going to her room and falling asleep in front of TV. She is on dialysis Thursday, , and Thursday. She had full run of dialysis today, but did state that the nurse called stating that she was holding a lot of extra fluid and were questioning whether she was increasing her p.o. fluids at home. [facility] Medical History Acute renal injury due to circulatory failure Anxiety Asthma Atherosclerosis of coronary artery of [place] heart without angina pectoris Bilateral carotid bruits Cardiology follow-up encounter Chronic heart failure with preserved ejection fraction (HFpEF) COVID-19 (01/20/21) Debility Depression Diabetes Easy bruising ESRD (end stage renal disease) on dialysis Essential hypertension Former smoker Generalized weakness GERD (gastroesophageal reflux disease) Headache History of cholelithiasis History of non-ST elevation myocardial infarction (NSTEMI) (01/20/21) History of renal calculi Hyperlipidemia Hypoxia Inability to walk Insulin dependent diabetes mellitus Ischemic cerebrovascular accident (CVA) (04/2018) Kidney disease Low iron Malignant hypertension Morbid obesity Non-STEMI (non-ST elevated myocardial infarction) (01/20/21) Respiratory insufficiency Type 2 diabetes mellitus without complication Wears glasses Home Medications aspirin 81 mg chewable tablet 81 mg PO DAILY@0800 HEART HEALTH 07/15/18 [History Last Taken 05/27/21] apixaban 5 mg tablet 5 mg PO BID BLOOD THINNER 08/04/18 [History Last Taken 01/19/21] atorvastatin 80 mg tablet 80 mg PO QHS CHOLESTEROL 08/04/18 [History Last Taken 01/19/21] torsemide 100 mg tablet 50 mg PO BID diuretic 04/14/19 [History Last Taken 05/27/21] melatonin 5 mg tablet 5 mg PO HS PRN Sleep 08/03/20 [History Last Taken 01/19/21] allopurinol 100 mg tablet 100 mg PO DAILY gout 09/20/20 [History Last Taken 01/19/21] carvedilol 12.5 mg tablet 6.25 mg PO BID blood pressure 09/20/20 [History Last Taken 05/27/21] hydralazine 100 mg tablet 100 mg PO TID blood pressure 09/20/20 [History Last Taken 05/27/21] acetaminophen 325 mg tablet (Tylenol) 650 mg PO Q6H PRN PRN Pain 1-10 Or Fever #0 tabs 10/03/20 [Rx Last Taken Unknown] amlodipine 10 mg tablet 10 mg PO DAILY blood pressure 01/20/21 [History Last Taken 05/27/21] potassium chloride 10 mEq tablet,extended release(part/cryst) 10 meq PO BID supplement 01/20/21 [History Last Taken 05/27/21] insulin aspart U-100 100 unit/mL (3 mL) subcutaneous pen (Novolog FlexPen U-100 Insulin aspart) 5 unit subcut BID blood sugar 03/21/21 [History Last Taken Unknown] insulin glargine U-300 conc 300 unit/mL (1.5 mL) subcutaneous pen (Toujeo SoloStar U-300 Insulin) 20 unit subcut BREAKFAST diabetes 03/21/21 [History Last Taken Unknown] cholecalciferol (vitamin D3) 50 mcg (2,000 unit) capsule 50 mcg DAILY Check with primary doctor 07/12/22 [History Last Taken Unknown] ezetimibe 10 mg tablet 10 mg DAILY Check with primary doctor 07/12/22 [History Last Taken Unknown] nystatin 100,000 unit/gram topical powder (Nyamyc) 1 applic topical BID PRN RASH/YEAST 07/12/22 [History Last Taken Unknown] vitamin B complex-vitamin C-folic acid 0.8 mg tablet (Nephro-Todd) 1 tab DAILY Check with primary doctor 07/12/22 [History Last Taken Unknown] cefdinir 300 mg capsule 300 mg PO Q48H #2 caps 07/15/22 [Rx Last Taken Unknown] Allergy/AdvReac Type Severity Reaction Status Date / Time No Known Allergies Allergy Verified 07/22/22 16:06 Family History Mother Diabetes Heart disease Hypertension Father Hypertension Heart disease Brother Heart disease Hypertension Sister Heart disease Diabetes Surgical History History of appendectomy History of arteriovenostomy for renal dialysis (~03/2021) History of History of cholecystectomy History of coronary artery stent placement (06/2016) History of left heart catheterization (05/27/21) Social History Smoking Status: Former smoker alcohol intake: never ROS ROS ED Constitutional Constitutional ED: Denies chills or fever(s) Eyes Eyes: Denies discharge from eye(s) ENT ENT ED: Denies discharge from eye(s), rhinorrhea or sore throat Cardiovascular Cardiovascular: Denies chest pain or palpitations Respiratory/Chest Respiratory/Chest: Denies cough or dyspnea Gastrointestinal Gastrointestinal: Denies abdominal pain, nausea or vomiting Genitourinary Genitourinary ED: Reports other Details: On dialysis but still makes some urine. Patient denies dysuria. Integumentary Denies Abrasions or rash Neurologic Neurologic: Reports weakness Psychiatric Psychiatric: Denies anxiety or depression Allergic/Immunologic Allergic/Immunologic ED: Denies lip swelling or urticaria EXAM Physical Exam Narrative Exam Narrative: Patient resting with eyes closed but will answer questions appropriately. Const Vital Signs: 07/22/22 16:00 07/22/22 17:09 07/22/22 18:08 Temperature 96.9 F L Temperature Source Temporal Pulse Rate 60 67 Respiratory Rate 18 18 Respiratory Pattern Normal Blood Pressure 130/59 H Blood Pressure Mean 82 Pulse Ox 97 95 Oxygen Delivery Method Room Air Room Air Positive well nourished and well developed General Appearance ED: well developed HEENT HEENT Narrative: Old appearing ecchymosis noted to the left forehead and left maxilla. Family states this is from a fall a couple weeks ago. Eyes EOMs intact bilaterally Neck no lymphadenopathy Chest Wall inspection of chest normal and palpation of chest normal Resp normal respiratory effort and clear to auscultation bilaterally Cardio regular rate and regular rhythm GI normal to inspection, nondistended, normoactive bowel sounds Extremity Extremity Narrative: Generalized weakness throughout with no focal deficits. Neuro Neuro Narrative: Patient ANO x2. No obvious slurred speech noted at this time. MDM MDM MDM Narrative Medical decision making narrative: Patient placed on director of cardiac rehabilitation. CT head obtained given her altered mentation. EKG obtained to evaluate for cardiac arrhythmia/ischemia. Chest x-ray obtained to evaluate for acute lung pathology, cardiac size, or mediastinal abnormality. Labwork obtained to evaluate for leukocytosis, anemia, and electrolyte derangement. ABG obtained to ensure no significant evidence of CO2 retention. History & Record Review Additional record(s) reviewed:: Prior inpatient record and Prior ED visit Lab Data Attestation: I reviewed the patient's lab results. Labs: Laboratory Results - last 24 hr 07/22/22 07/22/22 07/22/22 17:00 17:00 17:00 WBC 7.9 RBC 3.09 L Hgb 10.1 L Hct 32.6 L MCV 105.5 H MCH 32.7 H MCHC 31.0 L RDW Std Deviation 59.0 H RDW Coeff of [place] 15.7 H Plt Count 207 MPV 12.7 H Immature Gran % (Auto) 0.900 Neut % (Auto) 74.3 H Lymph % (Auto) 11.2 L [place] % (Auto) 8.3 Eos % (Auto) 4.7 Baso % (Auto) 0.6 Absolute Neuts (auto) 5.9 Absolute Lymphs (auto) 0.89 Nucleated RBC % 0 Sodium 141 Potassium 4.2 Chloride 105 Carbon Dioxide 32.0 Anion Gap 4 L BUN 31 H Creatinine 4.71 H Estim Creat Clear Calc 10.06 Est GFR (MDRD) Af Amer 12 L Est GFR (MDRD) Non-Af 10 L BUN/Creatinine Ratio 6.6 L Glucose 96 Calcium 8.7 Total Bilirubin 0.50 Direct Bilirubin 0.16 AST 53 H ALT 92 H Alkaline Phosphatase 75 Ammonia 43.0 H Troponin I High Sens 12 Total Protein 6.9 Albumin 3.4 Globulin 3.5 ABG Data ABG results: ABG 07/22/22 17:59 Specimen Type ART Sample Site R Radial pH 7.51 H Bicarbonate Actual 31.9 H Total CO2 33 Base Excess 9 H O2 Saturation 97 ABG pCO2 40.0 ABG pO2 80 O2 Delivery Device Room Air Radiography Chest X-Ray - ED: 1 View, Read by ED Physician and Chronic Changes Diagnostic Testing: Clinical Impression(s) from Imaging Studies Brain CT 07/22/22 16:41 IMPRESSION: There are no acute findings. Chronic involutional changes of the brain. Electronically Signed: Emery Adkins MD at 17:46 EDT , Chest X-Ray 07/22/22 16:53 IMPRESSION: There are no acute findings. Electronically Signed: Emery Adkins MD at 17:25 EDT , EKG Initial EKG: Attestation: I personally reviewed and interpreted this EKG as follows: Interpretation: Sinus Bradycardia (Sinus bradycardia at 59 with first-degree AV block. No acute ST change.) Treatment and Re-Evaluation :: CBC is unremarkable. Hemoglobin is 10.1, increased when compared to prior labs. Chemistry studies reveal a BUN of 31 and a creatinine of 4.71. She did have dialysis today. LFTs significant for an AST of 53 and an ALT of 92. Alk phos is normal at 75. Ammonia is slightly elevated at 43. Head CT reveals no evidence of acute injury. Portable chest x-ray reveals chronic changes with no obvious infiltrate. ABG was obtained and reveals a pH of 7.509 with a PCO2 of 40. Urinalysis has been ordered to ensure no infection, however patient does not make much urine as she is dialysis dependent. Given her current mentation I do not feel she is safe at home as she will fall asleep during normal conversation. I will speak with hospitalist regarding admission. Discharge Plan Dx/Rx/DC Orders Clinical Impression: Acute alteration in mental status Disposition Disposition: [facility]
--- NOTE | 2022-07-22 16:53 | RAD_ITS ---
STUDY: XR Chest 1 View 07/22/2022 4:48 PM REASON FOR EXAM: Female, 56 years old. SLURRED SPEECH. PNEUMONIA, INCREASED FATIGUE AND WEAKNESS.PAIN sob COMPARISON: 4.15.23 TECHNIQUE: XR Chest 1 View FINDINGS: There is no demonstrated pleural abnormality. Enlarged heart size. Normal mediastinum. Normal kristi. Prominent appearing increased interstitial lung markings. Normal visualized pulmonary arteries. There is atherosclerotic calcification of the aortic arch with tortuosity. There are diffuse degenerative changes of the visualized thoracic spine. There is degenerative osteoarthritis of the bilateral shoulders. There is no demonstrated abnormality of the visualized soft tissue structures of the upper abdomen. RAD/Chest 1 View (Portable) IMPRESSION: There are no acute findings. Electronically Signed: Emery Adkins MD at 17:25 EDT ,
[2022-07-22 17:22] LABS: Absolute Lymphocyte Count 0.89 X10^3/uL (0.83-4.51); Absolute Neutrophil Count 5.9 X10^3/uL (2.0-7.7); Basophil# 0.05 X10^3/uL; Basophil% 0.6 % (0-1); Eosinophil# 0.37 X10^3/uL; Eosinophils% 4.7 % (0-5); Hematocrit 32.6 % (37-47); Hemoglobin 10.1 g/dL (12.0-15.0); Lymphocyte # 0.89 X10^3/ul (0.83-4.51); Lymphocyte % 11.2 % (19-41); Mean Corpuscular Hgb 32.7 pg (27.0-32.0); Mean Corpuscular Volume 105.5 fL (81-99); Mean Platelet Vol. 12.7 fl (6.2-12.0); Monocyte# 0.66 X10^3/uL; Monocyte% 8.3 % (0-10); NRBC Flagged by Analyzer 0 % (0-5); Neutrophil % 74.3 % (47-70); Platelet Count 207 K/mm3 (150-450); RBC Distribution Width CV 15.7 % (11.6-14.6); Red Blood Count 3.09 M/mm3 (4.2-5.4); White Blood Count 7.9 K/mm3 (4.4-11.0)
[2022-07-22 17:24] LABS: POSITIVE COUNT NO; POSITIVE DIFFERENTIAL NO; POSITIVE MORPHOLOGY NO
[2022-07-22 17:41] LABS: AST(SGOT) 53 U/L (15-37); Alanine Aminotransfer ALT/SGPT 92 U/L (13-56); Albumin, Serum 3.4 g/dL (3.2-5.0); Alkaline Phosphatase 75 U/L (45-117); Anion Gap 4 (5-15); BUN 31 mg/dL (7-18); BUN/Creat Ratio 6.6 RATIO (10-20); Bilirubin, Direct 0.16 mg/dL (0.00-0.30); Calcium,Total 8.7 mg/dL (8.5-10.1); Chloride 105 mmol/L (98-107); Creatinine, Serum 4.71 mg/dL (0.55-1.02); EST Glomerular Filtration Rate 10 mL/min (>60); Est Glom Filt Rate - Afr Amer 12 mL/min (>60); Estimated Creatinine Clearance 10.06 ml/min; Globulin 3.5 g/dL (2.2-4.2); Glucose 96 mg/dL (74-106); Potassium 4.2 mmol/L (3.5-5.1); Protein, Total 6.9 g/dL (6.4-8.2); Sodium Level 141 mmol/L (136-145); Troponin-I HS 12 pg/mL (3.0-54.0)
[2022-07-22 18:06] LABS: Base Excess 9 mmol/L (-2 to +2); Bicarbonate 31.9 mmol/L (22-26); Blood Gas Specimen Type ART; O2 Delivery Device Room Air; PO2 80 mmHG (75-100); SITE R Radial; SO2 97 % (95-99); Total Carbon Dioxide 33 mmol/L; pH 7.51 (7.35-7.45)
[2022-07-22] MEDS: Acetaminophen 325 MG Tablet 650 MG PO (18:06)
[2022-07-22 18:08] VITALS: PULSE 67; RESP 18; O2SAT 95
[2022-07-22 18:12] LABS: Bacteria 0 SEEN /hpf (None Seen); Mucous, Urine 0 SEEN /hpf (<or=2+); Red Blood Cells-Urine 0 SEEN /hpf (0-5); Squamous Epithelial Cells - UA 0 SEEN /hpf (5-10)
[2022-07-22 18:38] VITALS: BP 145/67; PULSE 60; RESP 14; TEMP 36.6; O2SAT 96
[2022-07-22 18:40] LABS: Color, Urine Yellow (Yellow); Glucose, Dipstick Normal (Normal); Ketone-Dipstick 5 mg/dl (Negative); Leukocyte Esterase-Dipstick 100 /ul (Negative); Nitrite-Dipstick Negative (Negative); Occult Blood-Urine 10 /ul (Negative); Protein-Dipstick 100 mg/dl (Negative); Urine Clarity Sl. Cloudy (Clear); Urine Urobilinogen 1 mg/dl (Normal)
[2022-07-22 18:50] LABS: Urine Bilirubin Dipstick 3 mg/dL (Negative)
[2022-07-22 18:57] LABS: Hyaline Cast 10-25 SEEN /lpf (0-5); White Blood Cells 0-5 SEEN /hpf (0-5)
[2022-07-22 18:59] VITALS: BMI 39.6
[2022-07-22 19:10] VITALS: BP 99/49; PULSE 58; RESP 16; TEMP 36.8; O2SAT 94
--- NOTE | 2022-07-22 20:06 | MRI_ITS ---
STUDY: MRI BRAIN WITHOUT CONTRAST REASON FOR EXAM: Female, 56 years old. mental status change, cerebrovascular disease TECHNIQUE: Standardized multiplanar fat and water weighted pulse sequences were obtained. COMPARISON: None. FINDINGS: There is mild cerebral atrophy with widening of the extra-axial spaces and ventricular dilatation. There are a limited number of small white matter hyperintensities, distributed throughout the deep white matter tracts of the cerebral hemispheres, consistent with mild chronic white matter ischemic changes. Cystic encephalomalacia within the left parietal occipital and temporal lobe is present present consistent with previous infarct with ex vacuo dilatation of the posterior left ventricle. There is no evidence for recent intracranial ischemia or other cause of cytotoxic edema on diffusion weighted imaging (DWI). Normal T2* images of the brain without demonstrated susceptibility artifact. There is no demonstrated hemosiderin stain. Normal bilateral basal ganglia. Normal thalami. There is no extra-axial fluid accumulation. Normal flow voids within the major intracranial circulation suggesting patency by spin echo criteria. Normal sella turcica, pituitary gland, infundibular stalk, optic chiasm and hypothalamus. Normal tectal plate and pineal gland. Normal midbrain, alicia and medulla. Normal cerebellum. Normal basal cisterns. Normal bilateral temporal bones. Normal bilateral internal auditory canals. No demonstrated orbital abnormality, within the constraints of a routine brain study. Mucosal thickening of the maxillary and ethmoid sinuses is present. Low-density calvarium is present on T1 imaging. Normal visualized soft tissue structures. Normal visualized upper cervical spine. MRI/Brain without Contrast IMPRESSION: 1. No evidence of acute intracranial bleed, mass or new ischemia. Encephalomalacia within the left parietal occipital and temporal lobe from previous infarct is present. 2. Low density osseous structures of the calvarium can be seen in the setting of hematologic disorder, clinically correlate. 3. Paranasal sinus disease as above. Electronically Signed: Haroon Gutierrez DO at 13:22 EDT ,
--- NOTE | 2022-07-22 20:06 | ECHOD_ITS ---
Reason For Study: CAD/ASHD Procedure This was a 2D Doppler, Color Flow transthoracic echocardiogram. Exam performed portable in patient room. Left Ventricle Normal LV size. Mild concentric left ventricular hypertrophy. Left ventricular systolic function is normal. The estimated ejection fraction is 65 %. No regional wall motion abnormalities noted. Right Ventricle Normal RV size. Normal systolic function. Atria Normal left atrium. Normal right atrium. Bubble contrast study negative for right to left interatrial shunt. Mitral Valve Normal mitral valve. Tricuspid Valve Normal tricuspid valve. Mild (1+) tricuspid valve insufficiency. Pulmonary artery systolic pressure is 40 mmHg. Aortic Valve Trisinus/trileaflet aortic valve. Pulmonic Valve Normal pulmonic valve. Mild (1+) pulmonic valve insufficiency. Great Vessels Normal aortic root. The pulmonary artery is normal size. Normal inferior vena cava. Pericardium/Pleural No pericardial effusion. Medication Performed a rapid injection of agitated mix of 9 cc saline and 1cc air to assess for atrial septal defect. MMode/2D Measurements & Calculations LVIDd: 5.4 cm IVSd: 1.4 cm LVOT diam: 1.8 cm LVIDs: 3.7 cm LVPWd: 1.2 cm FS: 30.8 % LVOT area: 2.6 cm2 Ao root diam: 3.5 cm LAV(MOD-bp): 64.3 ml LVAd ap4: 32.8 cm2 LAV(MOD-bp) Indexed: 32.6 ml/m2 LVLd ap4: 8.5 cm LAV(MOD-sp2): 49.0 ml EDV(MOD-sp4): 104.9 ml LAV(MOD-sp4): 79.0 ml EDV(sp4-el): 107.4 ml LVAs ap4: 18.7 cm2 LVLs ap4: 6.8 cm ESV(MOD-sp4): 43.8 ml ESV(sp4-el): 43.4 ml EF(MOD-sp4): 58.2 % EF(sp4-el): 59.6 % SV(MOD-sp4): 61.1 ml SV(sp4-el): 64.0 ml LA A4 area: 24.2 cm2 LA dimension(2D): 4.2 cm RA A4 area: 14.3 cm2 Time Measurements MV dec time: 0.26 sec Doppler Measurements & Calculations MV E max redd: 133.5 cm/sec Lat Peak E' Redd: 10.8 cm/sec Med Peak E' Redd: 6.5 cm/sec MV A max redd: 119.5 cm/sec E/E' lat: 12.3 E/E' med: 20.6 MV E/A: 1.1 MV V2 max: 140.6 cm/sec MV dec slope: 508.2 cm/sec2 Ao V2 max: 208.8 cm/sec MV max P.9 mmHg Ao max P.5 mmHg MV V2 mean: 78.3 cm/sec Ao V2 mean: 144.4 cm/sec MV mean P.9 mmHg Ao mean P.4 mmHg MV V2 VTI: 48.0 cm Ao V2 VTI: 53.9 cm MVA(VTI): 2.7 cm2 AV (velocity ratio): 0.90 DIANA(I,D): 2.4 cm2 DIANA(V,D): 2.0 cm2 LV V1 max: 159.2 cm/sec SV(LVOT): 127.8 ml PA V2 max: 140.1 cm/sec LV V1 max P.1 mmHg PA V2 mean: 87.4 cm/sec LV V1 mean P.8 mmHg LV V1 mean: 113.1 cm/sec LV V1 VTI: 48.4 cm TR max redd: 298.7 cm/sec TR max P.7 mmHg ECHO/Echo Complete Interpretation Summary Normal LV size. Left ventricular systolic function is normal. The estimated ejection fraction is 65 %. Bubble contrast study negative for right to left interatrial shunt. Mild concentric left ventricular hypertrophy. Pulmonary artery systolic pressure is 40 mmHg. Ordering Physician: Bill Wyman Referring Physician: DENISSE FLORES Performed By: Radha Talavera RCS
--- NOTE | 2022-07-22 20:10 | HP.PCM.HOS_ITS ---
HPI - General General Date of Admission: 07/22/22 Date of Service: 07/22/22 Chief Complaint: Somnolence, lethargy HPI Narrative ZAYDA ANTOINE, is a 56 F who presents to the emergency room at [facility] after being sent in from her physician's office due to lethargy and somnolence and her physician's office. Complete review of systems was not able to be obtained from the patient due to the fact she is a poor informant and she also has a history of cerebrovascular disease in the past. Patient lives with her sister who I obtained the medical history from by phone. Patient's sister states that the patient has been depressed over the last several months, there is some conflict between the patient and her daughter who is into illicit drug activity according to the sister. She states that the patient has conversations with her daughter and then becomes upset and does not sleep at night and sometimes becomes aggravated. Patient recently had a fall outside her home approximately a week ago, according to the sister, she does not know if the patient lost consciousness during the fall, she does have areas of ecchymosis over her facial areas. Patient has end-stage renal disease and undergoes dialysis Thursday and Saturdays. Work-up in the emergency room included a CBC which showed a normal white blood cell count, hemoglobin was 10.1, chemistry profile revealed a creatinine of 4.71, BUN of 31, and a glucose of 96. Patient's chest x-ray showed no evidence of pneumonia, CT of the brain showed no acute findings, there was chronic involutional changes of the brain noted. Patient's urinalysis was unremarkable. An arterial blood gas was obtained which did not show the patient to be hypoxic or hypercapnic. Patient's ammonia level today was 43. Patient was placed into observation status on PCU, I will obtain an MRI of the brain to verify that the patient has not had a recent stroke, patient will remain on her medications and her blood sugars will be monitored, labs will be repeated tomorrow. 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 FORMERLY [facility], [facility]–1983 Medical History (Updated 07/22/22 @ 19:16 by Gayla Ramirez) Acute renal injury due to circulatory failure Anxiety Asthma Atherosclerosis of coronary artery of [place] heart without angina pectoris Bilateral carotid bruits Cardiology follow-up encounter Chronic heart failure with preserved ejection fraction (HFpEF) COVID-19 (01/20/21) Debility Depression Diabetes Easy bruising ESRD (end stage renal disease) on dialysis Essential hypertension Former smoker Generalized weakness GERD (gastroesophageal reflux disease) Headache History of cholelithiasis History of non-ST elevation myocardial infarction (NSTEMI) (01/20/21) History of renal calculi Hyperlipidemia Hypoxia Inability to walk Insulin dependent diabetes mellitus Ischemic cerebrovascular accident (CVA) (04/2018) Kidney disease Low iron Malignant hypertension Morbid obesity Non-STEMI (non-ST elevated myocardial infarction) (01/20/21) Respiratory insufficiency TIA (transient ischemic attack) Type 2 diabetes mellitus without complication Wears glasses Home Medications aspirin 81 mg chewable tablet 81 mg PO DAILY@0800 HEART HEALTH 07/15/18 [History Last Taken 05/27/21] apixaban 5 mg tablet 5 mg PO BID BLOOD THINNER 08/04/18 [History Last Taken 01/19/21] atorvastatin 80 mg tablet 80 mg PO QHS CHOLESTEROL 08/04/18 [History Last Taken 01/19/21] torsemide 100 mg tablet 50 mg PO BID diuretic 04/14/19 [History Last Taken 05/27/21] melatonin 5 mg tablet 5 mg PO HS PRN Sleep 08/03/20 [History Last Taken 01/19/21] allopurinol 100 mg tablet 100 mg PO DAILY gout 09/20/20 [History Last Taken 01/19/21] carvedilol 12.5 mg tablet 6.25 mg PO BID blood pressure 09/20/20 [History Last Taken 05/27/21] hydralazine 100 mg tablet 100 mg PO TID blood pressure 09/20/20 [History Last Taken 05/27/21] acetaminophen 325 mg tablet (Tylenol) 650 mg PO Q6H PRN PRN Pain 1-10 Or Fever #0 tabs 10/03/20 [Rx Last Taken Unknown] amlodipine 10 mg tablet 10 mg PO DAILY blood pressure 01/20/21 [History Last Taken 05/27/21] potassium chloride 10 mEq tablet,extended release(part/cryst) 10 meq PO BID supplement 01/20/21 [History Last Taken 05/27/21] insulin aspart U-100 100 unit/mL (3 mL) subcutaneous pen (Novolog FlexPen U-100 Insulin aspart) 5 unit subcut BID blood sugar 03/21/21 [History Last Taken Unknown] insulin glargine U-300 conc 300 unit/mL (1.5 mL) subcutaneous pen (Toujeo SoloStar U-300 Insulin) 20 unit subcut BREAKFAST diabetes 03/21/21 [History Last Taken Unknown] cholecalciferol (vitamin D3) 50 mcg (2,000 unit) capsule 50 mcg DAILY Check with primary doctor 07/12/22 [History Last Taken Unknown] ezetimibe 10 mg tablet 10 mg DAILY Check with primary doctor 07/12/22 [History Last Taken Unknown] nystatin 100,000 unit/gram topical powder (Nyamyc) 1 applic topical BID PRN RASH/YEAST 07/12/22 [History Last Taken Unknown] vitamin B complex-vitamin C-folic acid 0.8 mg tablet (Nephro-Todd) 1 tab DAILY Check with primary doctor 07/12/22 [History Last Taken Unknown] cefdinir 300 mg capsule 300 mg PO Q48H #2 caps 07/15/22 [Rx Last Taken Unknown] Allergy/AdvReac Type Severity Reaction Status Date / Time No Known Allergies Allergy Verified 07/22/22 16:06 Family History Mother Diabetes Heart disease Hypertension Father Hypertension Heart disease Brother Heart disease Hypertension Sister Heart disease Diabetes Surgical History History of appendectomy History of arteriovenostomy for renal dialysis (~03/2021) History of History of cholecystectomy History of coronary artery stent placement (06/2016) History of left heart catheterization (05/27/21) Social History Smoking Status: Former smoker alcohol intake: never ROS ROS Narrative Review of systems was unreliable due to patient's mental status and chronic cognitive impairment from a previous stroke, the patient is a poor informant, medical information was obtained from the patient's sister who she lives with and helps take care of her. Vital Signs Vital Signs Vital Signs: 07/22/22 16:00 07/22/22 17:09 07/22/22 18:08 Temperature 96.9 F L Temperature Source Temporal Pulse Rate 60 67 Respiratory Rate 18 18 Respiratory Pattern Normal Blood Pressure 130/59 H Blood Pressure Mean 82 Blood Pressure Source Blood Pressure Position Blood Pressure Location Pulse Ox 97 95 Oxygen Delivery Method Room Air Room Air 07/22/22 18:38 07/22/22 19:10 Temperature 97.8 F 98.2 F Temperature Source Temporal Temporal Pulse Rate 60 58 L Respiratory Rate 14 16 Respiratory Pattern Blood Pressure 145/67 H 99/49 L Blood Pressure Mean 93 65 Blood Pressure Source Monitor Blood Pressure Position Semi-Fowlers Blood Pressure Location Right Arm Pulse Ox 96 94 Oxygen Delivery Method Room Air Room Air Weight Weight: 98.3 kg Body Mass Index (BMI) 39.6 Physical Exam Const alert Constitutional Narrative: Patient appears older than her stated age, she is oriented to person and place but not the year General Appearance: cooperative, well kempt and well developed Orientation / Consciousness: awake, oriented to person and oriented to place HEENT normocephalic and moist oral mucous membranes HEENT Narrative: Patient has old areas of ecchymosis from her previous fall over her facial areas Eyes PERRL, EOMs intact bilaterally and conjunctivae normal Neck supple, no JVD, thyroid normal and no carotid bruits General: trachea midline Resp normal respiratory effort, no retractions, no use of accessory muscles and clear to auscultation bilaterally Auscultation: Negative for rales, rhonchi or wheezes Cardio regular rate, regular rhythm, S1 normal heart sound, S2 normal heart sound, no murmurs, no rub and no gallops GI normal to inspection, nondistended, normoactive bowel sounds, soft to palpation, non-tender and non-distended Extremity no clubbing, cyanosis or edema Skin no rashes or lesions noted General Skin Exam: no breakdown Neuro oriented x3, CN's II-XII intact bilaterally, moves all extremities, no focal motor deficits and no sensory deficits noted Neuro Narrative: Patient has apparent cognitive impairment, she is able to answer simple questions appropriately, she does not know the year and was at first unsure of the month. Sensorium / Orientation: awake, alert, oriented to person and oriented to place Speech: speech normal Psych Psych Narrative: Patient's affect is flat Results Lab / Micro Data Result Diagrams: 07/22/22 17:00 07/22/22 17:00 Labs: Laboratory Results - last 24 hr 07/22/22 17:00: WBC 7.9, RBC 3.09 L, Hgb 10.1 L, Hct 32.6 L, MCV 105.5 H, MCH 32.7 H, MCHC 31.0 L, RDW Std Deviation 59.0 H, RDW Coeff of [place] 15.7 H, Plt Count 207, MPV 12.7 H, Immature Gran % (Auto) 0.900, Neut % (Auto) 74.3 H, Lymph % (Auto) 11.2 L, Graham % (Auto) 8.3, Eos % (Auto) 4.7, Baso % (Auto) 0.6, Absolute Neuts (auto) 5.9, Absolute Lymphs (auto) 0.89, Nucleated RBC % 0 07/22/22 17:00: Sodium 141, Potassium 4.2, Chloride 105, Carbon Dioxide 32.0, Anion Gap 4 L, BUN 31 H, Creatinine 4.71 H, Estim Creat Clear Calc 10.06, Est GFR (MDRD) Af Amer 12 L, Est GFR (MDRD) Non-Af 10 L, BUN/Creatinine Ratio 6.6 L, Glucose 96, Calcium 8.7, Total Bilirubin 0.50, Direct Bilirubin 0.16, AST 53 H, ALT 92 H, Alkaline Phosphatase 75, Troponin I High Sens 12, Total Protein 6.9, Albumin 3.4, Globulin 3.5 07/22/22 17:00: Ammonia 43.0 H 07/22/22 18:00: Urine Color Yellow, Urine Clarity Sl. Cloudy, Urine pH 7.0, Ur Specific Lula 1.010, Urine Protein 100 H, Urine Glucose (UA) Normal, Urine Ketones 5 H, Urine Occult Blood 10 H, Urine Nitrite Negative, Urine Bilirubin 3 H, Urine Urobilinogen 1 H, Ur Leukocyte Esterase 100 H, Urine RBC 0 SEEN, Urine WBC 0-5 SEEN, Ur Squamous Epith Cells 0 SEEN, Urine Bacteria 0 SEEN, Hyaline Casts 10-25 SEEN, Urine Mucus 0 SEEN ABG Data ABG results: ABG 07/22/22 17:59 Specimen Type ART Sample Site R Radial pH 7.51 H Bicarbonate Actual 31.9 H Total CO2 33 Base Excess 9 H O2 Saturation 97 ABG pCO2 40.0 ABG pO2 80 O2 Delivery Device Room Air Radiology Impression Brain CT 07/22/22 16:41 IMPRESSION: There are no acute findings. Chronic involutional changes of the brain. Electronically Signed: Emery Adkins MD at 17:46 EDT , Chest X-Ray 07/22/22 16:53 IMPRESSION: There are no acute findings. Electronically Signed: Emery Adkins MD at 17:25 EDT , Assessment & Plan Assessment/Plan (1) Acute alteration in mental status: PLAN: Plan 1. Increased somnolence today-etiology unclear, patient was placed in observation status on PCU, she will be monitored, blood sugars will be monitored, patient will undergo an MRI tomorrow to rule out a recent stroke. Again, patient's somnolence may be secondary to sleep deprivation or underlying depression. It appears that the patient does have an underlying depression which is not at this time being treated-she will need follow-up as an outpatient regarding this. #2 type 2 diabetes-patient's blood sugars will be monitored, she does not appear to be hypoglycemic at this time, sliding scale insulin will be administered as needed #3 cerebrovascular disease by history-again patient will have an MRI performed to rule out recent stroke #4 chronic depression-this may be secondary to an underlying depression or secondary to past history of cerebrovascular accident, patient will need follow- up with a psychiatrist as an outpatient or her PCP #5 end-stage renal disease on chronic dialysis-patient's next dialysis day is #6 coronary artery disease-stable at this time, I have decided to perform an echocardiogram on the patient while she is in the hospital to make sure her ejection fraction has not diminished, according to the patient's sister, she is due to undergo a repeat heart catheterization in the next 2 weeks (August 11), according to the sister, she had an abnormal stress test which indicated possible ischemia. #7 essential hypertension-patient will remain on her present medication #8 past history of chronic anticoagulant usage-according to the patient's sister, she was on Eliquis up until recently when a mill tender washing took her off the medication due to the fact he could not come up with a reason why she was taking it and the family was not sure why she was on it. She had been placed on it by mill tender washing in [place], according to the sister, her new mill tender washing was going to attempt to contact that mill tender washing to find out why the patient was taking Eliquis. She is no longer on Eliquis according to the sister, I have stopped this medication. Total clinical time spent by myself addressing the patient's medical issues, reviewing all of her data, and collaborating with patient's care team: 75 minutes Charges/Coding Visit Charges Inpatient E&M: 80456 Init Hosp L3
--- NOTE | 2022-07-22 20:30 | NURSING ---
Notified Dr rivas of blood glucose of 46 states to hold basal insulin tonight
[2022-07-22 20:46] LABS: Bedside Glucose 46 mg/dL (74-106)
[2022-07-22 20:46] LABS: Bedside Glucose 83 mg/dL (74-106)
[2022-07-22 23:34] VITALS: BP 133/67; PULSE 60
[2022-07-22] MEDS: hydrALAZINE 50 MG Tablet 100 MG PO (23:34)
[2022-07-22] MEDS: Potassium Chloride Oral Tablet 10 MEQ PO (23:35)
[2022-07-22] MEDS: Carvedilol 6.25 MG Tablet PO (23:35)
[2022-07-22] MEDS: Atorvastatin Calcium 80 MG Tablet PO (23:36)
[2022-07-23] VITALS (7 sets, daily range): BP systolic 131–134; BP diastolic 56–67; PULSE 60–66; RESP 15–18; TEMP 36.5–36.8; O2SAT 93–96
[2022-07-23 00:15] LABS: Bedside Glucose 211 mg/dL (74-106)
[2022-07-23 05:20] LABS: Absolute Lymphocyte Count 1.01 X10^3/uL (0.83-4.51); Absolute Neutrophil Count 4.1 X10^3/uL (2.0-7.7); Basophil# 0.04 X10^3/uL; Basophil% 0.7 % (0-1); Eosinophils% 6.5 % (0-5); Hematocrit 28.8 % (37-47); Hemoglobin 9.2 g/dL (12.0-15.0); Lymphocyte # 1.01 X10^3/ul (0.83-4.51); Lymphocyte % 16.5 % (19-41); Mean Corp Hgb Conc 31.9 g/dL (32-36); Mean Corpuscular Hgb 32.9 pg (27.0-32.0); Mean Corpuscular Volume 102.9 fL (81-99); Mean Platelet Vol. 12.7 fl (6.2-12.0); Monocyte# 0.54 X10^3/uL; Monocyte% 8.8 % (0-10); NRBC Flagged by Analyzer 0 % (0-5); Neutrophil # 4.09 X10^3/uL (2.7-7.7); Neutrophil % 66.7 % (47-70); Platelet Count 179 K/mm3 (150-450); RBC Distribution Width CV 15.6 % (11.6-14.6); RBC Distribution Width SD 57.8 fl (35.1-43.9); White Blood Count 6.1 K/mm3 (4.4-11.0)
[2022-07-23 05:46] LABS: Anion Gap 5 (5-15); BUN 36 mg/dL (7-18); BUN/Creat Ratio 6.8 RATIO (10-20); Calcium,Total 8.4 mg/dL (8.5-10.1); Chloride 104 mmol/L (98-107); Creatinine, Serum 5.29 mg/dL (0.55-1.02); EST Glomerular Filtration Rate 9 mL/min (>60); Est Glom Filt Rate - Afr Amer 11 mL/min (>60); Estimated Creatinine Clearance 9.39 ml/min; Glucose 143 mg/dL (74-106); Potassium 3.9 mmol/L (3.5-5.1); Sodium Level 137 mmol/L (136-145)
[2022-07-23] MEDS: hydrALAZINE 50 MG Tablet 100 MG PO ×2 (06:05→15:15)
--- NOTE | 2022-07-23 08:10 | NURSING ---
This RN spoke with Fidelina Montano with crisis. She or a colleague will be in shortly to evaluate patient. States a referral was sent in to her office in 2021, but office was unsuccessful reaching patient to establish counseling.
[2022-07-23] MEDS: Torsemide 100 MG Tablet 50 MG PO ×2 (09:08→16:29)
[2022-07-23] MEDS: Potassium Chloride Oral Tablet 10 MEQ PO ×2 (09:09→16:29)
[2022-07-23] MEDS: amLODIPine 10 MG Tablet PO (09:09)
[2022-07-23] MEDS: Allopurinol 100 MG Tablet PO (09:09)
[2022-07-23] MEDS: Aspirin 81 MG TAB.CHEW PO (09:10)
[2022-07-23] MEDS: Carvedilol 6.25 MG Tablet PO (09:10)
[2022-07-23 09:35] LABS: Bedside Glucose 74 mg/dL (74-106)
--- NOTE | 2022-07-23 09:46 | NURSING ---
Patient's son called in for update. This RN told him that his mother is stable and down for MRI. Asked son if he knew about her facial bruising/recent fall and when it was. Son stated he hasn't seen his mother since mother's day three years ago. He states there is more to the story than what [the patient's] sister is telling us. Son is concerned about patient's care at home. States as well that his mother didn't get the care she needed after her stroke in 2019 and she would be better off today if she had help back then. Son stated he lives about two hours away but would like to kept up to date on care this admission.
[2022-07-23] MEDS: Insulin Glargine-YFGN 100 UNIT/ML Pen 20 UNIT SC (11:22)
[2022-07-23 11:50] LABS: Bedside Glucose 174 mg/dL (74-106)
[2022-07-23] MEDS: Insulin Lispro 100 UNIT/ML INSULN.PEN SC ×3 (12:17→16:27)
--- NOTE | 2022-07-23 13:33 | NURSING ---
This RN spoke with Katheryn with [facility] to inform her patient is medically clear.
--- NOTE | 2022-07-23 15:17 | NURSING ---
Demetria from crisis stopped at the desk after assessing patient. She will go and make contact with sister, to have additional questions answered before calling us with her recommendations. She stated despite patient's depression and thoughts of suicide she does not feel she is actively suicidal and does not currently require suicide precautions.
--- NOTE | 2022-07-23 15:59 | PCM.DC ---
Discharge Instructions Diet Discharge Diet: 1800 Calorie Control Diet Activity Discharge Activity: Return to Normal Activity Weight Bearing Status: Full weight bearing Follow Up Care Test Results: Test results from this visit will be discussed in further detail at your follow-up appointment, if applicable. Discharge Plan Admission Admit Date/Time: 07/22/22 19:11 Primary Reason for Your Visit: depression Attending Provider: Bill Wyman Primary Care Provider: Page Sutton [employer] REPAIRER Instructions Additional Instructions / Restrictions: Follow-up with counseling center regarding medication/treatment for depression Discharge Orders/Prescriptions Prescriptions: Continued torsemide 100 mg tablet 50 mg PO BID melatonin 5 mg tablet 5 mg PO HS PRN (Reason: Sleep) aspirin 81 MG tablet,chewable 81 mg PO DAILY@0800 Hold Instructions: Hold baby aspirin as patient is on Eliquis. atorvastatin 80 MG tablet 80 mg PO QHS carvedilol 12.5 mg tablet 6.25 mg PO BID allopurinol 100 mg tablet 100 mg PO DAILY hydralazine 100 mg tablet 100 mg PO TID acetaminophen [Tylenol] 325 mg Tablet 650 mg PO Q6H PRN PRN (Reason: Pain 1-10 Or Fever) Qty: 0 0RF potassium chloride 10 mEq Tablet,Er Particles/Crystals 10 meq PO BID amlodipine 10 MG tablet 10 mg PO DAILY insulin aspart U-100 [Novolog FlexPen U-100 Insulin] 100 unit/mL (3 mL) insulin pen 5 unit SUBCUT BID Label Comments: AT LUNCH AND DINNER. IF BS LESS THAN 80 DO NOT GIVE Toujeo SoloStar U-300 Insulin 300 unit/mL (1.5 mL) insulin pen 20 unit SC BREAKFAST Nephro-Todd 0.8 mg tablet 1 tab DAILY ezetimibe 10 mg tablet 10 mg DAILY cholecalciferol (vitamin D3) 50 mcg (2,000 unit) capsule 50 mcg DAILY Discontinued apixaban 5 MG tablet 5 mg PO BID Rx Instructions: . cefdinir 300 mg capsule 300 mg PO Q48H Qty: 2 0RF Rx Instructions: Take cefdinir after hemodialysis on days of dialysis. Referrals / Follow Up: Page Sutton NP, [employer] [facility]PA[facility] [Primary Care Provider] - Within 2 Weeks Disposition Disposition (needs filled in before D/C Order can be placed): Home, Self Care
--- NOTE | 2022-07-23 16:04 | CASEMGMT ---
SAPNA WINN called sister to discuss needs at discharge. Sister states she will follow-up with counseling center and outpatient follow-up for patient. Sister declined additional DME or HHC at discharge. Patient attends Adult Day care during the week. Patient lives with sister. Stephy had no further questions or concerns at this time.
--- NOTE | 2022-07-23 16:21 | DS.PCM_ITS ---
Providers Date of Admission: 07/22/22 Date of Discharge: 07/23/22 Primary Care Physician: TERESA Mas Reason For Visit: CONFUSION, MENTAL STATUS Diagnosis Discharge Diagnosis (1) Acute alteration in mental status: Status: Acute Code(s): R41.82 - Altered mental status, unspecified Plan 1. Chronic depression #2 type 2 diabetes-patient's blood sugars will be monitored, she does not appear to be hypoglycemic at this time, sliding scale insulin will be administered as needed #3 cerebrovascular disease by history-again patient will have an MRI performed to rule out recent stroke #4 Mental status change-secondary to chronic depression and chronic cerebrovascular disease #5 end-stage renal disease on chronic dialysis-patient's next dialysis day is #6 coronary artery disease-stable at this time, I have decided to perform an echocardiogram on the patient while she is in the hospital to make sure her ejection fraction has not diminished, according to the patient's sister, she is due to undergo a repeat heart catheterization in the next 2 weeks (August 11), according to the sister, she had an abnormal stress test which indicated possible ischemia. #7 essential hypertension-patient will remain on her present medication #8 past history of chronic anticoagulant usage-according to the patient's sister, she was on Eliquis up until recently when a reporter took her off t he medication due to the fact he could not come up with a reason why she was taking it and the family was not sure why she was on it. She had been placed on it by reporter in [place], according to the sister, her new reporter was going to attempt to contact that reporter to find out why the patient was taking Eliquis. She is no longer on Eliquis according to the sister, I have stopped this medication. #9 mild pulmonary hypertension Total clinical time spent by myself addressing the patient's medical issues, reviewing all of her data, and collaborating with patient's care team: 75 minutes Medications at Discharge Home Medications aspirin 81 mg chewable tablet 81 mg PO DAILY@0800 HEART HEALTH 07/15/18 atorvastatin 80 mg tablet 80 mg PO QHS CHOLESTEROL 08/04/18 torsemide 100 mg tablet 50 mg PO BID diuretic 04/14/19 melatonin 5 mg tablet 5 mg PO HS PRN Sleep 08/03/20 allopurinol 100 mg tablet 100 mg PO DAILY gout 09/20/20 carvedilol 12.5 mg tablet 6.25 mg PO BID blood pressure 09/20/20 hydralazine 100 mg tablet 100 mg PO TID blood pressure 09/20/20 acetaminophen 325 mg tablet (Tylenol) 650 mg PO Q6H PRN PRN Pain 1-10 Or Fever #0 tabs 10/03/20 amlodipine 10 mg tablet 10 mg PO DAILY blood pressure 01/20/21 potassium chloride 10 mEq tablet,extended release(part/cryst) 10 meq PO BID supplement 01/20/21 insulin aspart U-100 100 unit/mL (3 mL) subcutaneous pen (Novolog FlexPen U-100 Insulin aspart) 5 unit subcut BID blood sugar 03/21/21 insulin glargine U-300 conc 300 unit/mL (1.5 mL) subcutaneous pen (Toujeo SoloStar U-300 Insulin) 20 unit subcut BREAKFAST diabetes 03/21/21 cholecalciferol (vitamin D3) 50 mcg (2,000 unit) capsule 50 mcg DAILY Check with primary doctor 07/12/22 ezetimibe 10 mg tablet 10 mg DAILY Check with primary doctor 07/12/22 vitamin B complex-vitamin C-folic acid 0.8 mg tablet (Nephro-Todd) 1 tab DAILY Check with primary doctor 07/12/22 Hospital Course Operations None Procedures 2-D Echocardiogram Summary of Care Provided Minutes Spent on Discharge: 31 Hospital Course: This 56-year-old white female was seen in the emergency room at [facility] after being sent over for evaluation at the emergency room by her primary care physician who noticed that she was somnolent and her office on that date. Work-up in the emergency room included a CT of the head which did not show any acute disease, labs were obtained, these labs included a blood gas that revealed a normal PCO2 and a PO2 which was normal on room air, CBC which revealed a normal white blood cell count and hemoglobin of 9.2, and a CHEM panel which revealed a creatinine of 4.71, BUN of 31, and ammonia level of 43 which was not felt to be significant. Patient had a chest x-ray which showed no evidence of pneumonia. Patient's urinalysis was unremarkable. Patient was noted to be alert and this examiner who had taken care of her previously in the hospital just recently felt that her mental status was at baseline. Patient was placed in observation status on PCU, MRI of the brain was performed which showed encephalomalacia from old strokes but no acute strokes, she had echocardiogram which showed mild pulmonary hypertension and a normal EF. Conversation was carried out with the patient's sister who is her caregiver, her sister stated that the patient has been depressed for an extended length of time and even had seen an outpatient psychiatrist but did not follow-up with the psychiatrist. She further stated the patient had made statements in the past that she wanted to harm herself-she had not gone through any concrete steps to do so however, the sister also stated that the patient has had problems with a daughter who is an addict. I had crisis see the patient while the patient was in the hospital, they did feel the patient had chronic depression and needed treatment but did not feel the patient needed transfer to a psychiatric facility. Crisis was going to contact the patient's sister as an outpatient and set up follow-up appointments. I feel the patient's mental status change was secondary to chronic depression. On 07/23/2022, patient was seen and examined: On examination she appeared older than her stated age, she does not appear to be in any distress. She exhibited mild to moderate cognitive impairment. Vital signs as documented. Skin warm and dry and without overt rashes. Neck without JVD, thyroid appears normal, trachea is midline, neck is supple. Lungs clear, normal air movement was noted. Heart exam notable for regular rhythm, normal sounds and absence of murmurs, rubs or gallops. Abdomen unremarkable and without evidence of organomegaly, masses, or abdominal aortic enlargement, bowel sounds are present in all 4 quadrants, no abdominal tenderness was noted. Extremities nonedematous, no cyanosis was noted, no clubbing was noted. Neuro: Cranial nerves II through XII are grossly intact, no focal motor deficits were noted, sensation to light touch and pinprick is intact, motor exam 5/5 throughout. Psych: Patient is alert and oriented to person and place, her affect was flat. Patient was discharged home on 07/23/2022 in stable condition, I talked briefly with her PCP-Page Flores OPERATIONS ASSOCIATE by phone and made her aware of the patient's hospital course and the fact that the sister was going to have the patient follow-up with counseling as an outpatient. I also talked with the patient's sister briefly, she did not request that I placed the patient on any psychiatric medications at the time of discharge from the hospital. Weight / BMI Weight Weight: 98.3 kg Body Mass Index (BMI) 39.6 ABG / Lab / Microbiology Data Result Diagrams: 07/23/22 04:13 07/23/22 04:13 Laboratory: Laboratory Results - last 24 hr 07/22/22 17:00: WBC 7.9, RBC 3.09 L, Hgb 10.1 L, Hct 32.6 L, MCV 105.5 H, MCH 32.7 H, MCHC 31.0 L, RDW Std Deviation 59.0 H, RDW Coeff of [place] 15.7 H, Plt Count 207, MPV 12.7 H, Immature Gran % (Auto) 0.900, Neut % (Auto) 74.3 H, Lymph % (Auto) 11.2 L, [place] % (Auto) 8.3, Eos % (Auto) 4.7, Baso % (Auto) 0.6, Absolute Neuts (auto) 5.9, Absolute Lymphs (auto) 0.89, Nucleated RBC % 0 07/22/22 17:00: Sodium 141, Potassium 4.2, Chloride 105, Carbon Dioxide 32.0, Anion Gap 4 L, BUN 31 H, Creatinine 4.71 H, Estim Creat Clear Calc 10.06, Est GFR (MDRD) Af Amer 12 L, Est GFR (MDRD) Non-Af 10 L, BUN/Creatinine Ratio 6.6 L, Glucose 96, Calcium 8.7, Total Bilirubin 0.50, Direct Bilirubin 0.16, AST 53 H, ALT 92 H, Alkaline Phosphatase 75, Troponin I High Sens 12, Total Protein 6.9, Albumin 3.4, Globulin 3.5 07/22/22 17:00: Ammonia 43.0 H 07/22/22 18:00: Urine Color Yellow, Urine Clarity Sl. Cloudy, Urine pH 7.0, Ur Specific [place] 1.010, Urine Protein 100 H, Urine Glucose (UA) Normal, Urine Ketones 5 H, Urine Occult Blood 10 H, Urine Nitrite Negative, Urine Bilirubin 3 H, Urine Urobilinogen 1 H, Ur Leukocyte Esterase 100 H, Urine RBC 0 SEEN, Urine WBC 0-5 SEEN, Ur Squamous Epith Cells 0 SEEN, Urine Bacteria 0 SEEN, Hyaline Casts 10-25 SEEN, Urine Mucus 0 SEEN 07/22/22 19:44: POC Glucose 46 L 07/22/22 20:19: POC Glucose 83 07/22/22 23:33: POC Glucose 211 H 07/23/22 04:13: WBC 6.1, RBC 2.80 L, Hgb 9.2 L, Hct 28.8 L, MCV 102.9 H, MCH 3 2.9 H, MCHC 31.9 L, RDW Std Deviation 57.8 H, RDW Coeff of [place] 15.6 H, Plt Count 179, MPV 12.7 H, Immature Gran % (Auto) 0.800, Neut % (Auto) 66.7, Lymph % (Auto) 16.5 L, [place] % (Auto) 8.8, Eos % (Auto) 6.5 H, Baso % (Auto) 0.7, Absolute Neuts (auto) 4.1, Absolute Lymphs (auto) 1.01, Nucleated RBC % 0 07/23/22 04:13: Sodium 137, Potassium 3.9, Chloride 104, Carbon Dioxide 28.0, Anion Gap 5, BUN 36 H, Creatinine 5.29 H, Estim Creat Clear Calc 9.39, Est GFR (MDRD) Af Amer 11 L, Est GFR (MDRD) Non-Af 9 L, BUN/Creatinine Ratio 6.8 L, Glucose 143 H, Calcium 8.4 L 07/23/22 09:13: POC Glucose 74 07/23/22 11:21: POC Glucose 174 H ABG: ABG 07/22/22 17:59 Specimen Type ART Sample Site R Radial pH 7.51 H Bicarbonate Actual 31.9 H Total CO2 33 Base Excess 9 H O2 Saturation 97 ABG pCO2 40.0 ABG pO2 80 O2 Delivery Device Room Air Radiography Diagnostic Testing: Radiology Impression Brain CT 07/22/22 16:41 IMPRESSION: There are no acute findings. Chronic involutional changes of the brain. Electronically Signed: Emery Adkins MD at 17:46 EDT Reading Location ID and State: [facility] / [place] , Service support , Chest X-Ray 07/22/22 16:53 IMPRESSION: There are no acute findings. Electronically Signed: Emery Adkins MD at 17:25 EDT , Brain MRI 07/22/22 20:06 IMPRESSION: 1. No evidence of acute intracranial bleed, mass or new ischemia. Encephalomalacia within the left parietal occipital and temporal lobe from previous infarct is present. 2. Low density osseous structures of the calvarium can be seen in the setting of hematologic disorder, clinically correlate. 3. Paranasal sinus disease as above. Electronically Signed: Haroon Gutierrez DO at 13:22 EDT , Echocardiogram 07/22/22 20:06 Interpretation Summary Normal LV size. Left ventricular systolic function is normal. The estimated ejection fraction is 65 %. Bubble contrast study negative for right to left interatrial shunt. Mild concentric left ventricular hypertrophy. Pulmonary artery systolic pressure is 40 mmHg. Ordering Physician: Bill Wyman Referring Physician: PAGE FLORES Performed By: Radha Talavera RCS D/C Instructions Discharge Diet: 1800 Calorie Control Diet Weight Bearing Status: Full weight bearing Meaningful Use Info Meaningful Use Diagnoses (Choose all that apply): None applicable Discharge Plan Admission Admit Date/Time: 07/22/22 19:11 Primary Reason for Your Visit: depression Attending Provider: Bill Wyman Primary Care Provider: Page Flores NP Instructions Additional Instructions / Restrictions: Follow-up with counseling center regarding medication/treatment for depression Discharge Orders/Prescriptions Prescriptions: Continued torsemide 100 mg tablet 50 mg PO BID melatonin 5 mg tablet 5 mg PO HS PRN (Reason: Sleep) aspirin 81 MG tablet,chewable 81 mg PO DAILY@0800 Hold Instructions: Hold baby aspirin as patient is on Eliquis. atorvastatin 80 MG tablet 80 mg PO QHS carvedilol 12.5 mg tablet 6.25 mg PO BID allopurinol 100 mg tablet 100 mg PO DAILY hydralazine 100 mg tablet 100 mg PO TID acetaminophen [Tylenol] 325 mg Tablet 650 mg PO Q6H PRN PRN (Reason: Pain 1-10 Or Fever) Qty: 0 0RF potassium chloride 10 mEq Tablet,Er Particles/Crystals 10 meq PO BID amlodipine 10 MG tablet 10 mg PO DAILY insulin aspart U-100 [Novolog FlexPen U-100 Insulin] 100 unit/mL (3 mL) insulin pen 5 unit SUBCUT BID Label Comments: AT LUNCH AND DINNER. IF BS LESS THAN 80 DO NOT GIVE Toujeo SoloStar U-300 Insulin 300 unit/mL (1.5 mL) insulin pen 20 unit SC BREAKFAST Nephro-Todd 0.8 mg tablet 1 tab DAILY ezetimibe 10 mg tablet 10 mg DAILY cholecalciferol (vitamin D3) 50 mcg (2,000 unit) capsule 50 mcg DAILY Discontinued apixaban 5 MG tablet 5 mg PO BID Rx Instructions: . cefdinir 300 mg capsule 300 mg PO Q48H Qty: 2 0RF Rx Instructions: Take cefdinir after hemodialysis on days of dialysis. Referrals / Follow Up: Page Flores OPERATIONS ASSOCIATE, OPERATIONS ASSOCIATE-C [Primary Care Provider] - Within 2 Weeks Disposition Disposition (needs filled in before D/C Order can be placed): Home, Self Care Charges/Coding Visit Charges Inpatient E&M: 33823 Disch Hosp >30min
[2022-07-23 16:50] LABS: Bedside Glucose 118 mg/dL (74-106)
--- NOTE | 2022-07-23 17:49 | NURSING ---
Demetria from the counseling center called to say she is working with the patients sister to arrange an appointment for an evaluation, and will follow.
== END 2022-07-23 18:22 | disposition home or self-care (01) ==
LOC: ED 18:38 → PCU 18:52
PROVIDERS: Admitting Provider Internal Medicine; Emergency Provider Emergency Medicine; PCP Nurse Practitioner Family; Visit Provider Internal Medicine
DX: R41.82 Altered mental status, unspecified (principal); I13.2 Hypertensive heart and chronic kidney disease with heart failure and with stage 5 chronic kidney disease, or end stage renal disease; Z99.2 Dependence on renal dialysis; I27.20 Pulmonary hypertension, unspecified; I50.32 Chronic diastolic (congestive) heart failure; E11.22 Type 2 diabetes mellitus with diabetic chronic kidney disease; N18.6 End stage renal disease; E66.01 Morbid (severe) obesity due to excess calories; Z79.4 Long term (current) use of insulin; R41.89 Other symptoms and signs involving cognitive functions and awareness; E78.5 Hyperlipidemia, unspecified; I69.398 Other sequelae of cerebral infarction; Z87.891 Personal history of nicotine dependence; Z79.82 Long term (current) use of aspirin; I25.10 Atherosclerotic heart disease of native coronary artery without angina pectoris; Z86.16 Personal history of COVID-19; F32.A Depression, unspecified; Z79.899 Other long term (current) drug therapy; Z79.01 Long term (current) use of anticoagulants; J45.909 Unspecified asthma, uncomplicated; I25.2 Old myocardial infarction; Z68.39 Body mass index [BMI] 39.0-39.9, adult
CPT/HCPCS: 36415; 36600; 70450; 70551; 71045; 80048; 80076; 81001; 82140; 82803; 82962; 84484; 85025; 93005; 93306; 97802; 99221; 99285; A4216; G0378

== ENCOUNTER → 2022-12-17 | Outpatient (CLI) | payer MEDICARE, MEDICAID, SELFPAY ==
--- NOTE | 2022-12-17 09:45 | VDUE_ITS ---
Reason For Study: Fistula planning Right Lower Arm Left Arm Proximal Radial artery diameter 1.6 x 1.9 Left Brachial artery diameter 4.2 x 4.1 mm. mm. Left Brachial artery waveform is triphasic . Proximal Radial artery waveform is Lateral Brachial vein diameter 3.2 x 3.5 mm. triphasic . Medial Brachial vein diameter 2.3 x 2.2 mm. Proximal Lateral Radial vein diameter 1.3 x Brachiocephalic fistula noted in the left 1.6 mm. upper arm, cephalic portion of graft is Proximal Medial Radial vein diameter 0.8 x thrombosed. 0.9 mm. Grab Setter Vein is present. Distal Radial artery diameter 2.3 x 2.4 mm. Grab Setter Vein measures 1.4 mm. Distal Lateral Radial vein diameter 0.9 x Cephalic Vein at proximal upper arm measures 0.8 mm. 2.8 x 3.2 mm. Distal Medial Radial vein diameter 0.9 x 0.9 Cephalic vein at proximal upper arm depth mm. measures 6.7 mm. Proximal Ulnar artery diameter 2.1 x 2.2 mm. Cephalic Vein proximal forearm measures 1.2 x Proximal Ulnar artery waveform is 1.3 mm. triphasic . Cephalic Vein at mid forearm measures 1.3 x Proximal Lateral Ulnar vein diameter 2.0 x 1.5 mm. 1.9 mm. Cephalic Vein at distal forearm measures 1.4 Proximal Medial Ulnar vein diameter 1.0 x x 1.6 mm. 1.1 mm. Proximal Basilic vein measures 3.1 x 2.9 mm. Distal Ulnar artery diameter 1.7 x 2.0 mm. Proximal Basilic vein depth measures 15.5 mm. Distal Lateral Ulnar vein diameter 0.7 x 0.8 Mid Basilic vein measures 3.0 x 3.2 mm. mm. Mid Basilic vein depth measures 14.4 mm. Distal Medial Ulnar vein diameter 0.5 x 0.6 Distal Basilic vein measures 3.2 x 3.1 mm. mm. Distal Basilic vein depth measures 12.6 mm. Right Arm Left Lower Arm Right Brachial artery diameter 4.0 x 4.1 mm. Proximal Radial artery diameter 2.3 x 2.2 mm. Right Brachial artery waveform is Proximal Radial artery waveform is triphasic . triphasic . Lateral Brachial vein diameter 2.5 x 2.4 mm. Proximal Lateral Radial vein diameter 1.6 x Medial Brachial vein diameter 2.5 x 2.7 mm. 1.6 mm. Grab Setter Vein is present. Proximal Medial Radial vein diameter 1.2 x Grab Setter Vein measures 2.0 mm. 1.3 mm. Cephalic Vein at proximal upper arm measures Distal Radial artery diameter 2.2 x 2.4 mm. 1.9 x 1.8 mm. Distal Lateral Radial vein diameter 0.9 mm. Cephalic vein at proximal upper arm depth Distal Medial Radial vein diameter 0.8 mm. measures 12.4 mm. Proximal Ulnar artery diameter 3.6 x 3.0 mm. Cephalic Vein at mid upper arm measures 3.1 Proximal Ulnar artery waveform is triphasic . x 3.2 mm. Proximal Lateral Ulnar vein diameter 1.8 x Cephalic vein at mid upper arm depth 1.7 mm. measures 4.1 mm. Proximal Medial Ulnar vein diameter 1.6 x 2.0 Cephalic Vein distal upper arm measures 6.4 mm. x 7.2 mm. Distal Ulnar artery diameter 1.6 x 1.7 mm. Cephalic vein at distal upper arm depth Distal Lateral Ulnar vein diameter 0.9 x 1.0 measures 3.0 mm. mm. Cephalic Vein proximal forearm measures 1.9 Distal Medial Ulnar vein diameter 0.5 x 0.5 x 1.8 mm. mm. Cephalic Vein at mid forearm measures 2.1 x 2.1 mm. Cephalic Vein at distal forearm measures 2.6 x 2.8 mm. Proximal Basilic vein measures 3.6 x 3.9 mm. Proximal Basilic vein depth measures 17.2 mm. Mid Basilic vein measures 3.6 x 3.7 mm. Mid Basilic vein depth measures 11.4 mm. Distal Basilic vein measures 3.5 x 3.4 mm. Distal Basilic vein depth measures 11.2 mm. VL/Dialysis Vein Map PRE-OP BILAT Interpretation Summary Bilateral upper extremity normal arterial inflow normal with no evidence of rustam nosis. Bilateral upper extremity normal venous outflow normal with no deep venous thro mbosis identified. Thrombosed prior brachio-cephalc fistula on the left Vein measurements as above Ordering Physician: Cipriano Trujillo Referring Physician: Page Sutton Performed By: Akiko Deleon RVT ???
== END | disposition home or self-care (01) ==
LOC: CVS 09:43
PROVIDERS: PCP Nurse Practitioner Family; Referring Provider Surgery Trauma Surgery; Visit Provider Surgery Trauma Surgery
DX: Z01.818 Encounter for other preprocedural examination (principal); Z99.2 Dependence on renal dialysis; N18.6 End stage renal disease; I25.10 Atherosclerotic heart disease of native coronary artery without angina pectoris
CPT/HCPCS: 93985

== ENCOUNTER 2023-01-22 06:08 | Day surgery (SDC) | payer MEDICARE, MEDICAID, SELFPAY ==
[2023-01-22 06:55] LABS: Hematocrit 34.8 % (37-47); Hemoglobin 10.9 g/dL (12.0-15.0); Mean Corp Hgb Conc 31.3 g/dL (32-36); Mean Corpuscular Hgb 31.9 pg (27.0-32.0); Mean Corpuscular Volume 101.8 fL (81-99); Mean Platelet Vol. 11.6 fl (6.2-12.0); Platelet Count 153 K/mm3 (150-450); RBC Distribution Width CV 15.6 % (11.6-14.6); RBC Distribution Width SD 57.2 fl (35.1-43.9); Red Blood Count 3.42 M/mm3 (4.2-5.4); White Blood Count 7.5 K/mm3 (4.4-11.0)
[2023-01-22 07:08] LABS: Anion Gap 7 (5-15); BUN 82 mg/dL (7-18); Calcium,Total 8.2 mg/dL (8.5-10.1); Chloride 106 mmol/L (98-107); Creatinine, Serum 6.85 mg/dL (0.55-1.02); EST Glomerular Filtration Rate 7 mL/min (>60); Est Glom Filt Rate - Afr Amer 8 mL/min (>60); Glucose 127 mg/dL (74-106); Potassium 4.9 mmol/L (3.5-5.1); Sodium Level 141 mmol/L (136-145)
--- NOTE | 2023-01-22 07:33 | PCM.HP.STD ---
HPI - General HPI Narrative ZAYDA ANTOINE, is a 57 F who presents for percutaneous AV fistula creation with Dr. Trujillo. She has a thrombosed left basilic fistula. Currently using R IJ catheter for dialysis, no issues to this point. She did recently get poison sekou, she has a rash on her legs. No rash over her bilateral arms or upper body. She has been applying calamine lotion to the legs, has steroids prescribed but has not started them. Otherwise, no interval changes to her health or medications since her last OV. She denies any N/V, F/C, CP, SOB, palpitations. No complaints other than itching from the poison sekou today. [facility] Medical History Acute alteration in mental status Acute renal injury due to circulatory failure Anxiety Atherosclerosis of coronary artery of [place] heart without angina pectoris Bilateral carotid bruits Cardiology follow-up encounter Cardiology follow-up encounter Chronic heart failure with preserved ejection fraction (HFpEF) Community acquired pneumonia COVID-19 (01/20/21) Debility Dependence on renal dialysis Depression Dietary restriction Easy bruising ESRD (end stage renal disease) on dialysis Essential hypertension Former smoker Generalized weakness GERD (gastroesophageal reflux disease) Headache History of cholelithiasis History of edema History of non-ST elevation myocardial infarction (NSTEMI) (01/20/21) History of renal calculi Hx of cardiovascular stress test Hx of echocardiogram Hyperlipidemia Hypoxia Inability to walk Insulin dependent diabetes mellitus Ischemic cerebrovascular accident (CVA) (04/2018) Low iron Malignant hypertension Morbid obesity Non-STEMI (non-ST elevated myocardial infarction) (01/20/21) Respiratory insufficiency TIA (transient ischemic attack) Type 2 diabetes mellitus without complication Wears glasses Home Medications aspirin 81 mg chewable tablet 81 mg PO DAILY@0800 HEART HEALTH 07/15/18 [History Last Taken 05/27/21] atorvastatin 80 mg tablet 80 mg PO QHS CHOLESTEROL 08/04/18 [History Last Taken 01/19/21] torsemide 100 mg tablet 50 mg PO BID diuretic 04/14/19 [History Last Taken 05/27/21] melatonin 5 mg tablet 5 mg PO HS PRN Sleep 08/03/20 [History Last Taken 01/19/21] carvedilol 12.5 mg tablet 6.25 mg PO BID blood pressure 09/20/20 [History Last Taken 05/27/21] acetaminophen 325 mg tablet (Tylenol) 650 mg (2 x 325 mg) PO Q6H PRN PRN Pain 1-10 Or Fever #0 tabs 10/03/20 [Rx Last Taken Unknown] amlodipine 10 mg tablet 10 mg PO DAILY blood pressure 01/20/21 [History Last Taken 05/27/21] insulin aspart U-100 100 unit/mL (3 mL) subcutaneous pen (Novolog FlexPen U-100 Insulin aspart) 5 unit subcut BID blood sugar 03/21/21 [History Last Taken Unknown] insulin glargine U-300 conc 300 unit/mL (1.5 mL) subcutaneous pen (Toujeo SoloStar U-300 Insulin) 20 unit subcut BREAKFAST diabetes 03/21/21 [History Last Taken Unknown] gabapentin 300 mg capsule 300 mg PO TID PRN NEUROPATHY 12/10/22 [History Last Taken Unknown] metoprolol succinate 100 mg tablet,extended release 24 hr 100 mg PO DAILY 12/10/22 [History Last Taken Unknown] allopurinol 100 mg tablet 100 mg PO DAILY 01/13/23 [History Last Taken Unknown] cholecalciferol (vitamin D3) 50 mcg (2,000 unit) capsule 50 mcg PO DAILY 01/13/23 [History Last Taken Unknown] ezetimibe 10 mg tablet 10 mg PO QHS 01/13/23 [History Last Taken Unknown] hydralazine 100 mg tablet 100 mg PO TID 01/13/23 [History Last Taken Unknown] ranolazine 500 mg tablet,extended release,12 hr 500 mg PO DAILY 01/13/23 [History Last Taken Unknown] vitamin B complex and vitamin C no.20-folic acid 1 mg capsule ([place] Caps) 1 cap PO DAILY 01/13/23 [History Last Taken Unknown] vitamin B complex-vitamin C-folic acid 0.8 mg tablet (Nephro-Todd) 1 tab PO DAILY 01/13/23 [History Last Taken Unknown] Allergy/AdvReac Type Severity Reaction Status Date / Time No Known Allergies Allergy Verified 01/21/23 12:25 Family History Mother Diabetes Heart disease Hypertension Father Hypertension Heart disease Brother Heart disease Hypertension Sister Heart disease Diabetes Surgical History History of appendectomy History of arteriovenostomy for renal dialysis (~03/2021) History of History of cholecystectomy History of coronary artery stent placement (06/2016) History of left heart catheterization (05/27/21) History of surgery Social History Smoking Status: Former smoker alcohol intake: never Physical Exam Narrative Const General: cooperative, healthy appearing, comfortable, no acute distress and well developed Nutritional Appearance: well nourished Orientation: alert, awake and oriented x3 HENMT Head: normocephalic and atraumatic Ears: hearing grossly normal bilaterally Nose: external nose normal Eyes General: appearance normal, both eyes and all related structures EOM: EOM intact bilaterally Neck Neck: normal visual inspection, full ROM, no lymphadenopathy and trachea midline Lymphatic: no lymphadenopathy noted Resp Effort & Inspection: normal respiratory effort, able to speak in complete sentences, symmetric chest movement, no audible wheezes, not labored, no stridor and no use of accessory muscles Auscultation: clear to auscultation bilaterally Cardio Rate: regular rate Rhythm: regular rhythm Pulses: brachial pulses present and radial pulses present Skin General: no rashes or lesions noted and no erythema Wounds: no wounds Neuro Cranial Nerves: CN's II-XI intact bilaterally and EOM intact bilaterally Speech: speech normal Psych Appearance: grossly normal and well kempt Mental Status: mental status grossly normal Mood: congruent mood Speech and Movement: speech and movement normal Thought Content: normal Judgment: judgment good Results Lab / Micro Data 01/22/23 06:42 01/22/23 06:42 Labs: Laboratory Results - last 24 hr 01/22/23 06:42: WBC 7.5, RBC 3.42 L, Hgb 10.9 L, Hct 34.8 L, MCV 101.8 H, MCH 31.9, MCHC 31.3 L, RDW Std Deviation 57.2 H, RDW Coeff of [place] 15.6 H, Plt Count 153, MPV 11.6, Sodium 141, Potassium 4.9, Chloride 106, Carbon Dioxide 28.0, Anion Gap 7, BUN 82 H, Creatinine 6.85 H, Est GFR (MDRD) Af Amer 8 L, Est GFR (MDRD) Non-Af 7 L, BUN/Creatinine Ratio 12.0, Glucose 127 H, Calcium 8.2 L Assessment & Plan Assessment/Plan (1) ESRD (end stage renal disease) on dialysis: PLAN: All questions and concerns regarding procedure today were addressed. Patient and family remain agreeable to proceed. Plan is to continue with endovascular fistula creation. Current plan is for post-op follow-up in office on 02/11/2023.
[2023-01-22 09:27] VITALS: BMI 39.6
--- NOTE | 2023-01-22 09:57 | OP.PCM_ITS ---
Report of Operation Date of Procedure: 01/22/23 Pre-Operative Diagnosis: ESRD Post-Operative Diagnosis: same Surgery/Procedure Performed:: Attempted endovascular fistula creation; unable to obtain access due to small vessels, body habitus Surgeon: Cipriano Trujillo Type of Anesthesia: Local and Sedation,Conscious Estimated Blood Loss (mL): 3 Description of Procedure: HPI: Patient is a 57-year-old female with end-stage renal disease currently on dialysis. She previously had a left upper arm fistula which has failed she currently receives dialysis via tunneled catheter. She had vein mapping which appears sufficient for endovascular fistula creation. She presents now for elective endovascular fistula creation. Description of procedure: Upon obtaining informed consent and verification correct patient procedure site patient taken to the Chemical Production [facility] where she was positioned prepped and draped in usual sterile fashion. Time was performed, sedation administered with Versed and fentanyl. Ultrasound was used to evaluate the brachial and ulnar arteries as well as the brachial and ulnar veins. Mapping had suggested that the ulnar artery and the lateral ulnar vein where the best fistula creation target sites. It also revealed that ulnar veins more distal in the wrist were too small for access so plan was for brachial vein access and ulnar artery at the wrist access. Ultrasound confirmed satisfactory sized brachial vein and satisfactory size ulnar artery. Skin overlying the brachial vein was anesthetized 1% lidocaine at the access attempted using micropuncture needle wire. The patient's large body habitus and chest wall adipose made positioning and accessed efforts difficult however were able to ultimately access the vein with the needle. When attempting to advance the micropuncture wire we encountered valves fairly early in the vein which made further advancement of the wire and possible. We made multiple other access efforts more superiorly in the arm without any success mostly due to depth of vein as well as chest wall body habitus. After we had exhausted all efforts at venous access was decided no further attempts were made so manual pressure was held after which satisfactory stasis was noted and dry sterile dressing was applied. Patient was then taken recovery manage plan discharged home.
== END 2023-01-22 10:45 | disposition home or self-care (01) ==
LOC: CLSP 06:12
PROVIDERS: PCP Nurse Practitioner Family; Referring Provider Surgery Trauma Surgery; Visit Provider Surgery Trauma Surgery
DX: E11.22 Type 2 diabetes mellitus with diabetic chronic kidney disease (principal); I13.2 Hypertensive heart and chronic kidney disease with heart failure and with stage 5 chronic kidney disease, or end stage renal disease; T82.868A Thrombosis due to vascular prosthetic devices, implants and grafts, initial encounter; Z99.2 Dependence on renal dialysis; I50.32 Chronic diastolic (congestive) heart failure; N18.6 End stage renal disease; E66.01 Morbid (severe) obesity due to excess calories; E78.5 Hyperlipidemia, unspecified; I25.10 Atherosclerotic heart disease of native coronary artery without angina pectoris; Z87.891 Personal history of nicotine dependence; I87.8 Other specified disorders of veins; E65 Localized adiposity; Z53.09 Procedure and treatment not carried out because of other contraindication; Y71.8 Miscellaneous cardiovascular devices associated with adverse incidents, not elsewhere classified
CPT/HCPCS: 36415; 36837; 80048; 85027; 99152; 99153; Q9967; C1769

== ENCOUNTER 2023-04-24 15:22 | Outpatient (CLI) | payer MEDICARE, MEDICAID, SELFPAY ==
[2023-04-24 15:51] LABS: Hematocrit 33.1 % (37-47); Hemoglobin 10.9 g/dL (12.0-15.0); Mean Corp Hgb Conc 32.9 g/dL (32-36); Mean Corpuscular Hgb 31.6 pg (27.0-32.0); Mean Corpuscular Volume 95.9 fL (81-99); Mean Platelet Vol. 12.5 fl (6.2-12.0); Platelet Count 165 K/mm3 (150-450); RBC Distribution Width CV 14.1 % (11.6-14.6); RBC Distribution Width SD 49.1 fl (35.1-43.9); Red Blood Count 3.45 M/mm3 (4.2-5.4); White Blood Count 6.7 K/mm3 (4.4-11.0)
[2023-04-24 16:58] LABS: Anion Gap 6 (5-15); BUN 58 mg/dL (7-18); BUN/Creat Ratio 9.6 RATIO (10-20); Chloride 104 mmol/L (98-107); Creatinine, Serum 6.04 mg/dL (0.55-1.02); EST Glomerular Filtration Rate 8 mL/min (>60); Est Glom Filt Rate - Afr Amer 9 mL/min (>60); Glucose 181 mg/dL (74-106); Potassium 4.8 mmol/L (3.5-5.1); Sodium Level 137 mmol/L (136-145)
== END 2023-04-24 23:59 | disposition home or self-care (01) ==
LOC: LAB 15:22
PROVIDERS: PCP Nurse Practitioner Family; Referring Provider Surgery Trauma Surgery; Visit Provider Surgery Trauma Surgery
DX: Z01.818 Encounter for other preprocedural examination (principal)
CPT/HCPCS: 36415; 80048; 85027; 86850; 86900; 86901

== ENCOUNTER 2023-04-27 08:46 | Day surgery (SDC) | payer MEDICARE, MEDICAID, SELFPAY ==
[2023-04-27] VITALS (9 sets, daily range): BP systolic 130–168; BP diastolic 56–88; PULSE 56–64; RESP 16–18; TEMP 36.6–37.1; O2SAT 92–99; BMI 41.5
[2023-04-27] MEDS: 0.9% Normal Saline (500mL Bag) 500 ML 15 ML IV (09:47)
[2023-04-27 09:58] LABS: Bedside Glucose 198 mg/dL (74-106)
--- NOTE | 2023-04-27 10:44 | PCM.HP.BLA ---
History and Physical Allergies No Known Allergies Allergy (Verified 04/15/23 14:35) Medications aspirin 81 mg chewable tablet 81 mg PO DAILY@0800 HEART HEALTH 07/15/18 [History Confirmed 04/15/23] atorvastatin 80 mg tablet 80 mg PO QHS CHOLESTEROL 08/04/18 [History Confirmed 04/15/23] torsemide 100 mg tablet 50 mg PO BID diuretic 04/14/19 [History Confirmed 04/15/23] melatonin 5 mg tablet 5 mg PO HS PRN Sleep 08/03/20 [History Confirmed 04/15/23] carvedilol 12.5 mg tablet 6.25 mg PO BID blood pressure 09/20/20 [History Confirmed 04/15/23] acetaminophen 325 mg tablet (Tylenol) 650 mg (2 x 325 mg) PO Q6H PRN PRN Pain 1-10 Or Fever #0 tabs 10/03/20 [Rx Confirmed 04/15/23] amlodipine 10 mg tablet 10 mg PO DAILY blood pressure 01/20/21 [History Confirmed 04/15/23] insulin aspart U-100 100 unit/mL (3 mL) subcutaneous pen (Novolog FlexPen U-100 Insulin aspart) 5 unit subcut BID blood sugar 03/21/21 [History Confirmed 04/15/23] insulin glargine U-300 conc 300 unit/mL (1.5 mL) subcutaneous pen (Toujeo SoloStar U-300 Insulin) 20 unit subcut BREAKFAST diabetes 03/21/21 [History Confirmed 04/15/23] gabapentin 300 mg capsule 300 mg PO TID PRN NEUROPATHY 12/10/22 [History Confirmed 04/15/23] allopurinol 100 mg tablet 100 mg PO DAILY 01/13/23 [History Confirmed 04/15/23] cholecalciferol (vitamin D3) 50 mcg (2,000 unit) capsule 50 mcg PO DAILY 01/13/23 [History Confirmed 04/15/23] ezetimibe 10 mg tablet 10 mg PO QHS 01/13/23 [History Confirmed 04/15/23] hydralazine 100 mg tablet 100 mg PO TID 01/13/23 [History Confirmed 04/15/23] ranolazine 500 mg tablet,extended release,12 hr 500 mg PO DAILY 01/13/23 [History Confirmed 04/15/23] vitamin B complex and vitamin C no.20-folic acid 1 mg capsule ([place] Caps) 1 cap PO DAILY 01/13/23 [History Confirmed 04/15/23] vitamin B complex-vitamin C-folic acid 0.8 mg tablet (Nephro-Todd) 1 tab PO DAILY 01/13/23 [History Confirmed 04/15/23] famotidine 10 mg tablet (Acid Controller) 20 mg PO DAILY 03/03/23 [History Confirmed 04/15/23] alprazolam 1 mg tablet (Xanax) 1 mg PO ONCE #1 TAB 04/15/23 [Rx Confirmed 04/15/23] PFS Medical History Acute alteration in mental status Acute renal injury due to circulatory failure Anxiety Atherosclerosis of coronary artery of [place] heart without angina pectoris Bilateral carotid bruits Cardiology follow-up encounter Cardiology follow-up encounter Chronic heart failure with preserved ejection fraction (HFpEF) Community acquired pneumonia COVID-19 (01/20/21) Debility Dependence on renal dialysis Depression Dietary restriction Easy bruising ESRD (end stage renal disease) on dialysis Essential hypertension Former smoker Generalized weakness GERD (gastroesophageal reflux disease) Headache History of cholelithiasis History of edema History of non-ST elevation myocardial infarction (NSTEMI) (01/20/21) History of renal calculi Hx of cardiovascular stress test Hx of echocardiogram Hyperlipidemia Hypoxia Inability to walk Insulin dependent diabetes mellitus Ischemic cerebrovascular accident (CVA) (04/2018) Low iron Malignant hypertension Morbid obesity Non-STEMI (non-ST elevated myocardial infarction) (01/20/21) Respiratory insufficiency TIA (transient ischemic attack) Type 2 diabetes mellitus without complication Wears glasses Surgical History History of appendectomy History of arteriovenostomy for renal dialysis (~03/2021) History of History of cholecystectomy History of coronary artery stent placement (06/2016) History of left heart catheterization (05/27/21) History of surgery Family History Mother Diabetes Heart disease HypertensionFather Hypertension Heart diseaseBrother Heart disease HypertensionSister Heart disease Diabetes Social History Smoking Status: Former smoker alcohol intake: never HPI HPI HPI: ZAYDA ANTOINE, is a 57 F who presents to the office today for further discussion of her possible AV access surgery. Her sister is helpful in directing conversation. She continues to be emotional and fearful; she has had significant personality/mental status changes since prior stroke. It appears as if the majority of her angst revolves around IV access needs. ROS General General: Yes weight change; No appetite, fatigue, colon cancer, breast cancer or weakness HEENT HEENT: Yes eye surgery; No difficulty swallowing, eye injury, swollen glands or hoarseness Endo Endocrine: Yes diabetes mellitus; No thyroid disease, thyroid cancer, Hair loss, heat intolerance or cold intolerance Skin Skin: No rash or changing moles Musc Musculoskeletal: Yes arthritis; No back problems, rheumatoid arthritis, gout or joint pain Cardio Cardiovascular: Yes murmur, heart disease, high blood pressure, heart attack and heart stent; No pacemaker, atrial fibrillation, palpitations, shortness of breat with exertion or chest pain Psych Psychiatric: No depression, anxiety or hearing voices Resp Respiratory: Yes shortness of breath, Yes sleep apnea, No cough, No COPD, No asthma, No emphysema and No wheezing Gastro Gastrointestinal: No abdominal pain, No nausea or vomiting, No diarrhea, No constipation, No blood in stool, Yes acid reflux, No hemorrhoids, No ulcers, No gallbladder problem and No black,tarry stools [place] Hematologic: No blood thinners, No blood disorders, No bleeding, No anemia and No blood clots Neuro Neurologic: No system reviewed and no additional complaints, except as documented, No as per HPI, No abnormal gait, No abnormal hearing, No abnormal movements, No abnormal speech, No behavioral changes, No burning sensations, No confusion, No convulsions, No disequilibrium, No dizziness, No localized weakness, Yes frequent falls, No headache(s), No lack of coordination, No loss of vision, No memory loss, No numbness, No other visual disturbances, No radicular pain, No restless legs, No sensory deficit, No syncope, No tingling, No tremor(s), No weakness and No other Exam Const General: cooperative, healthy appearing, comfortable, no acute distress and well developed Nutritional Appearance: well nourished Orientation: alert, awake and oriented x3 HENMT Head: normocephalic and atraumatic Ears: hearing grossly normal bilaterally Nose: external nose normal Eyes General: appearance normal, both eyes and all related structures EOM: EOM intact bilaterally Neck Neck: normal visual inspection, full ROM, no lymphadenopathy and trachea midline Thyroid: thyroid normal Lymphatic: no lymphadenopathy noted Resp Effort & Inspection: normal respiratory effort, able to speak in complete sentences, symmetric chest movement, no audible wheezes, not labored, no stridor and no use of accessory muscles Cardio Rate: regular rate Rhythm: regular rhythm Skin General: no rashes or lesions noted and no erythema Wounds: no wounds Neuro Cranial Nerves: CN's II-XI intact bilaterally and EOM intact bilaterally Speech: speech normal Motor: strength 5/5 throughout Sensory Exam: no sensory deficits noted Psych Appearance: grossly normal and well kempt Mental Status: mental status grossly abnormal Mood: congruent mood Affect: tearful Speech and Movement: speech and movement normal Attitude: guarded Thought Content: abnormal Judgment: limited Coding Level of Care Code Off vis,est,level 3 Diagnoses ESRD (end stage renal disease) on dialysis N18.6; Z99.2 Assessment and Plan Assessment and Plan (1) ESRD (end stage renal disease) on dialysis: Status: Chronic Plan: -right arm fistula
[2023-04-27] MEDS: Cefazolin 2 GM in 0.9% Normal Saline (100mL Bag) 100 ML IV (11:03)
[2023-04-27] MEDS: Heparin Injection (Vial) 5,000 UNIT/ML VIAL 5000 UNIT (11:50)
[2023-04-27] MEDS: Bupivacaine 0.25% 30 ML Vial (12:47)
[2023-04-27] MEDS: Lidocaine 1% (30 ml sdv) 30 ML Vial (12:47)
--- NOTE | 2023-04-27 12:47 | PCM.OPRPT ---
Problems Associated Problem List Diagnoses (1) ESRD (end stage renal disease) on dialysis: Report of Operation Date of Procedure: 04/27/23 Pre-Operative Diagnosis: esrd Post-Operative Diagnosis: same Surgery/Procedure Performed:: right proximal radial-cephalic fistula Surgeon: Cipriano Trujillo Type of Anesthesia: General Estimated Blood Loss (mL): 5 Description of Procedure: HPI: Patient is a 57-year-old female with end-stage renal disease currently on dialysis. She had a previous left upper extremity fistula with dysfunction for a while and then family occluded. She had vein mapping which revealed both the cephalic and basilic in the right upper extremity were satisfactory for potential use. She presents now for right upper extremity fistula creation. Description of procedure: Upon obtaining form consent and verification of correct patient procedure site patient taken the operating she was placed in general esthesia. She was then positioned prepped and draped in usual fashion a time was performed. Ultrasound used to evaluate the vein to the upper extremity. The cephalic vein was of satisfactory caliber throughout with a lateral cubital branch connecting to a semi conductor assembler branch that went adjacent to the brachial bifurcation just beyond the antecubital crease. There is also a large median cubital branch that fed into the basilic vein so the hope was to create the cephalic fistula without disrupting cubital branch and its inflow into the basilic. Skin was anesthetized with lidocaine and Marcaine and transverse incision made 1 fingerbreadth distal to the antecubital crease. Bovie cautery was then used to dissect down through subcutaneous tissue and self-retaining retractor put in position. As were encountered sharp section was dissect free proximal and distal. The bridging vein between the cubital branches was not as long as it appeared on ultrasound. In fact was very minimal distance between the 2 vessels however it was felt that we could divide this connector while maintaining patency through both veins. The bridging vein was then clamped with atraumatic clamps and divided. It was then oversewn on each side with 6-0 Prolene running fashion. After completing suture line clamps removed and satisfactory hemstasis was noted. There is no compromise of the caliber of the vessel on either side. Next further dissection was carried down to the level the fascia which was then divided and self-retaining retractors moved deeper in the wound. Sharp dissection used dissect free the brachial artery onto its bifurcation. Writing was used to place Vesseloops proximally in the brachial artery distally in the radial and ulnar arteries. Patient was in heparinized allowed to circulate for 3 minutes. The distal end of the semi conductor assembler branch that fed into the cephalic vein was then ligated with silk tie and divided. The outflow vein was then dilated up to 3 dilators and then flushed heparinized saline. The brachial artery bifurcation then occluded with Vesseloops in longitudinal arteriotomy created 11 blade extended with [place] scissors. The vein was then beveled to match the arteriotomy and anastomosis performed using a 6-0 Prolene running fashion. Prior to include suture line vessels were backbled and after complete suture line clamps removed satisfactory stasis noted. There continue to be a palpable radial and ulnar pulse at the wrist and a palpable thrill in the outflow vein into the cephalic vein. The wound was inspected hemostasis and then closed with 3-0 Vicryl followed by 4 Monocryl and Dermabond for the skin. Occlusion case patient was awakened from anesthesia and taken to recovery with anticipated discharged home.
--- NOTE | 2023-04-27 12:49 | DCINST_ITS ---
Discharge Instructions Diet Discharge Diet: No restrictions Activity Lifting Restrictions: not > 20 lbs for 2 weeks Dressing / Incision Call your doctor if your incision/area has: Sudden Increased Bleeding, Increased Pain/ Swelling, Increased Redness and Foul Smelling Discharge Call your doctor if you observe: Fever of 101 or Higher Remove Dressing in: 2 days Cleanse incision/area with: Soap & Water Follow Up Care Test Results: Test results from this visit will be discussed in further detail at your follow- up appointment, if applicable. Discharge Plan Admission Attending Provider: Cipriano Trujillo Primary Care Provider: Page Sutton [facility] Discharge Orders/Prescriptions Prescriptions: New oxycodone 5 mg tablet 5 mg PO Q8H PRN (Reason: pain) 3 Days Qty: 9 0RF Continued torsemide 100 mg tablet 50 mg PO BID melatonin 5 mg tablet 5 mg PO HS PRN (Reason: Sleep) gabapentin 300 mg capsule 300 mg PO TID PRN (Reason: NEUROPATHY) alprazolam [Xanax] 1 mg tablet 1 mg PO ONCE Qty: 1 0RF Rx Instructions: take prior to leaving home for surgery for fistula creation aspirin 81 MG tablet,chewable 81 mg PO DAILY@0800 Hold Instructions: Hold baby aspirin as patient is on Eliquis. atorvastatin 80 MG tablet 80 mg PO QHS carvedilol 12.5 mg tablet 6.25 mg PO BID acetaminophen [Tylenol] 325 mg Tablet 650 mg PO Q6H PRN PRN (Reason: Pain 1-10 Or Fever) Qty: 0 0RF amlodipine 10 MG tablet 10 mg PO DAILY insulin aspart U-100 [Novolog FlexPen U-100 Insulin] 100 unit/mL (3 mL) insulin pen 5 unit SUBCUT BID Patient Comments: AT LUNCH AND DINNER. IF BS LESS THAN 80 DO NOT GIVE insulin glargine U-300 conc [Toujeo SoloStar U-300 Insulin] 300 unit/mL (1.5 mL) insulin pen 20 unit SC BREAKFAST allopurinol 100 mg tablet 100 mg PO DAILY cholecalciferol (vitamin D3) 50 mcg (2,000 unit) capsule 50 mcg PO DAILY [place] Caps 1 mg capsule 1 cap PO DAILY Nephro-Todd 0.8 mg tablet 1 tab PO DAILY hydralazine 100 mg tablet 100 mg PO TID ranolazine 500 mg tablet extended release 12 hr 500 mg PO DAILY ezetimibe 10 mg tablet 10 mg PO QHS famotidine [Acid Controller] 10 mg tablet 20 mg PO DAILY Referrals / Follow Up: Page Sutton [facility] GL[facility] C[facility]TER, [facility] GLASS CUTTER-C [Primary Care Provider] - Disposition Disposition (needs filled in before D/C Order can be placed): Home, Self Care
[2023-04-27] MEDS: Heparin 10,000 UNITS/10 ML Vial 2500 UNITS IV (15:03)
[2023-04-27] MEDS: Acetaminophen 325 MG Tablet 650 MG PO (15:17)
== END 2023-04-27 15:20 | disposition home or self-care (01) ==
LOC: SDC 08:50 → AC 08:52
PROVIDERS: PCP Nurse Practitioner Family; Referring Provider Surgery Trauma Surgery; Visit Provider Surgery Trauma Surgery
PROC: (CPT 36818; principal; 2023-04-27 10:25)
DX: I13.2 Hypertensive heart and chronic kidney disease with heart failure and with stage 5 chronic kidney disease, or end stage renal disease (principal); Z99.2 Dependence on renal dialysis; I50.32 Chronic diastolic (congestive) heart failure; E11.22 Type 2 diabetes mellitus with diabetic chronic kidney disease; N18.6 End stage renal disease; E66.01 Morbid (severe) obesity due to excess calories; Z79.4 Long term (current) use of insulin; K21.9 Gastro-esophageal reflux disease without esophagitis; I25.10 Atherosclerotic heart disease of native coronary artery without angina pectoris; E78.5 Hyperlipidemia, unspecified; Z87.891 Personal history of nicotine dependence; Z79.82 Long term (current) use of aspirin; Z79.899 Other long term (current) drug therapy; Z95.5 Presence of coronary angioplasty implant and graft
CPT/HCPCS: 36818; 82962; A4648; J7040; A4216; J2405

== ENCOUNTER → 2023-05-01 | Outpatient (CLI) | payer MEDICARE, MEDICAID, SELFPAY ==
[2023-04-02 15:56] LABS: Hemoglobin 11.1 g/dL (12.0-15.0); Mean Corp Hgb Conc 31.7 g/dL (32-36); Mean Corpuscular Hgb 31.2 pg (27.0-32.0); Mean Corpuscular Volume 98.3 fL (81-99); Mean Platelet Vol. 12.8 fl (6.2-12.0); Platelet Count 160 K/mm3 (150-450); RBC Distribution Width CV 14.6 % (11.6-14.6); RBC Distribution Width SD 52.9 fl (35.1-43.9); Red Blood Count 3.56 M/mm3 (4.2-5.4); White Blood Count 5.3 K/mm3 (4.4-11.0)
[2023-04-02 16:51] LABS: Anion Gap 5 (5-15); BUN 34 mg/dL (7-18); BUN/Creat Ratio 7.9 RATIO (10-20); Calcium,Total 8.4 mg/dL (8.5-10.1); Chloride 106 mmol/L (98-107); Creatinine, Serum 4.29 mg/dL (0.55-1.02); EST Glomerular Filtration Rate 11 mL/min (>60); Est Glom Filt Rate - Afr Amer 14 mL/min (>60); Glucose 80 mg/dL (74-106); Potassium 4.6 mmol/L (3.5-5.1); Sodium Level 142 mmol/L (136-145)
[2023-04-07 09:40] VITALS: BP 137/66; PULSE 64; RESP 18; TEMP 37; O2SAT 94; BMI 42.2
--- NOTE | 2023-04-07 10:00 | NURSING ---
This nurse and another nurse were checking this pt in. during the check in process, pt gets very emotional and starts crying saying she doesn't want to have this procedure done. she attempts to get out of bed, I try to meet her emotional needs and talk soft and calmly to the pt. Pt still proceeds to get out of bed, I walk the rodriguez with the pt continuing to take with her. We walk back to the room and continue to get checked in and start IV. Three failed iv attempts by this nurse and another. The sister of pt is at bedside continuing to tell the pt she needs to sit still and get in the bed, she has to have this procedure done. pt continues to respond her saying don't make me do this, don't make me do this, if you loved me, you wouldn't make me do this! The sister had an appt to get to therefore she left the AC department, pt became unruly again, got dressed and tried to leave the department. The charge nurse, this nurse, manager editorial all try to de-escalate the situation and bring pt back to her room to wait to talk with Dr. Trujillo. social media coordinator is now involved.
[2023-04-07 11:58] LABS: Bedside Glucose 161 mg/dL (74-106)
== END | disposition home or self-care (01) ==
LOC: AC 04-07 13:13 → SDC 08:17 → PAT 13:23
PROVIDERS: PCP Nurse Practitioner Family; Referring Provider Surgery Trauma Surgery; Visit Provider Surgery Trauma Surgery
DX: Z01.818 Encounter for other preprocedural examination (principal)
CPT/HCPCS: 36415; 80048; 82962; 85027; 86850; 86900; 86901; J7040

== ENCOUNTER → 2023-07-17 | Outpatient (CLI) | payer MEDICARE, MEDICAID, SELFPAY ==
--- NOTE | 2023-07-17 14:49 | AVDS_ITS ---
Reason For Study: ESRD RIGHT Inflow - 303.2/168.3 cm/s Inflow - 1367 ml/min Prox Anastomosis - 630.1/351.4 cms Prox Anastomosis - 3406 ml/min Prox Graft - 326.7/135.8 cm/s Prox Graft - 8500 ml/min Mid Graft - 310.7/151.6 cm/s Mid Graft - 3570 ml/min Dist Graft - 202.4/92.6 cm/s Dist Graft - 3615 ml/min Outflow - 128.6/71.6 cm/s Outflow - 1102 ml/min Branch noted at distal graft/outflow. VL/AV Fistula/Dialysis Graft Scan Interpretation Summary Patent right brachio-cephalic fistula with no stenosis and adequate flow volume and depth. Ordering Physician: Cipriano Trujillo Referring Physician: Sita Sutton Performed By: Sunny Kraft, RVT
== END | disposition home or self-care (01) ==
LOC: CVS 14:48
PROVIDERS: PCP Nurse Practitioner Family; Referring Provider Surgery Trauma Surgery; Visit Provider Surgery Trauma Surgery
DX: N18.6 End stage renal disease (principal); Z99.2 Dependence on renal dialysis
CPT/HCPCS: 93990

== ENCOUNTER 2023-11-18 17:09 | Inpatient (IN) | payer MEDICARE, MEDICAID, SELFPAY ==
[2023-11-18] VITALS (12 sets, daily range): BP systolic 150–178; BP diastolic 61–81; PULSE 80–87; RESP 18–22; TEMP 37.1–37.7; O2SAT 92–96; BMI 45.0
--- NOTE | 2023-11-18 17:03 | CASEMGMT ---
Patient's daughter Madi Jain ([phone]) called [facility] and asked if patient was here. Patient was a direct admit and the ambulance is at [facility] now with patient. SW spoke with patient and asked if it is okay if we tell her daughter she is here. Patient said that is fine. [place] notified Madi that patient is here. Per executive secretary social welfare Madi told her that no one is to get information on patient except for her and her aunt as her brother (not sure if this is patient's brother or Fancis's brother) wants to put patient in a penitentiary and she is not going to let that happen. RAN did not see any Healthcare Power of Logging Worker papers on file. Patti SEQUEIRA
--- NOTE | 2023-11-18 17:15 | HP.PCM.HOS_ITS ---
HPI - General General Date of Admission: 11/18/23 Date of Service: 11/18/23 Chief Complaint: Feeling short of breath, cough, tired for 2 days HPI Narrative ZAYDA ANTOINE, is a 57 F who is directly admitted from [facility] ER for acute hypoxic respiratory failure secondary to bilateral pneumonia as per the ER physician there,Dr. Ram I also called her sister, Mrs. Stephy Roberts. As per the sister, she woke up today in the morning short of breath, mild cough, not feeling good. She had mild symptoms yesterday also. She had a stroke in the past and since then she lost memory or cognitive function. She said she goes to adult daycare center and there she was found shortness of breath on walking/dyspnea on exertion about 50 feet along with cough, shallow and rapid breathing and was sent to ED. She could not tell me about the fever but was feeling mild chills. Patient also stated about mid sternum around xiphisternum pain mainly on coughing or deep breathing, localized, pleuritic in nature. As per ED physician, no chest pain. In ED, she was found 85% on room air, BP 155/74, heart rate 78/min. RR 16/min. She required 4 L of oxygen, pulse ox 98%. As per ER physician chest x-ray shows multifocal pneumonia with mild bilateral pleural effusion and focal density of right apex. She also has mild leukocytosis 13,000, platelet count 160,000. Hemoglobin 11 g. BMP shows K5.8, BUN/creatinine 81/6.39 and patient is on dialysis Thursday and Thursday. Glucose 261. Bicarb 29. Twelve-lead EKG shows normal sinus rhythm 77 bpm, QTc 465 ms. First troponin 29. When patient arrived here she did require 8 L of oxygen, BP 178/73. As per her sister she also on fluid restriction but she does not did not. [facility] Medical History Acute alteration in mental status Acute renal injury due to circulatory failure Anxiety Atherosclerosis of coronary artery of [place] heart without angina pectoris Bilateral carotid bruits Cardiology follow-up encounter Cardiology follow-up encounter Chronic heart failure with preserved ejection fraction (HFpEF) Community acquired pneumonia COVID-19 (01/20/21) Debility Dependence on renal dialysis Depression Dietary restriction Easy bruising ESRD (end stage renal disease) on dialysis Essential hypertension Former smoker Generalized weakness GERD (gastroesophageal reflux disease) Headache History of cholelithiasis History of edema History of non-ST elevation myocardial infarction (NSTEMI) (01/20/21) History of renal calculi Hx of cardiovascular stress test Hx of echocardiogram Hyperlipidemia Hypoxia Inability to walk Insulin dependent diabetes mellitus Ischemic cerebrovascular accident (CVA) (04/2018) Low iron Malignant hypertension Morbid obesity Non-STEMI (non-ST elevated myocardial infarction) (01/20/21) Respiratory insufficiency TIA (transient ischemic attack) Type 2 diabetes mellitus without complication Wears glasses Home Medications ?Medication ?Instructions ?Recorded ?Last Taken ?Type aspirin 81 mg chewable tablet 81 mg PO DAILY@0800 HEART HEALTH 07/15/18 04/26/23 History atorvastatin 80 mg tablet 80 mg PO QHS CHOLESTEROL 08/04/18 04/26/23 History torsemide 100 mg tablet 50 mg PO BID diuretic 04/14/19 04/26/23 History melatonin 5 mg tablet 5 mg PO HS PRN Sleep 08/03/20 01/19/21 History carvedilol 12.5 mg tablet 6.25 mg PO BID blood pressure 09/20/20 04/27/23 History acetaminophen 325 mg tablet 650 mg (2 x 325 mg) PO Q6H PRN PRN 10/03/20 Unknown Rx (Tylenol) Pain 1-10 Or Fever #0 tabs amlodipine 10 mg tablet 10 mg PO DAILY blood pressure 01/20/21 04/27/23 History insulin aspart U-100 100 unit/mL 5 unit subcut BID blood sugar 03/21/21 04/26/23 History (3 mL) subcutaneous pen (Novolog FlexPen U-100 Insulin aspart) insulin glargine U-300 conc 300 20 unit subcut BREAKFAST diabetes 03/21/21 04/26/23 History unit/mL (1.5 mL) subcutaneous pen (Toujeo SoloStar U-300 Insulin) gabapentin 300 mg capsule 300 mg PO TID PRN NEUROPATHY 12/10/22 Unknown History allopurinol 100 mg tablet 100 mg PO DAILY 01/13/23 04/26/23 History cholecalciferol (vitamin D3) 50 50 mcg PO DAILY 01/13/23 04/26/23 History mcg (2,000 unit) capsule ezetimibe 10 mg tablet 10 mg PO QHS 01/13/23 04/26/23 History hydralazine 100 mg tablet 100 mg PO TID 01/13/23 Unknown History ranolazine 500 mg tablet,extended 500 mg PO DAILY 01/13/23 04/27/23 History release,12 hr vitamin B complex and vitamin C 1 cap PO DAILY 01/13/23 04/26/23 History no.20-folic acid 1 mg capsule (M[facility]od Caps) vitamin B complex-vitamin C-folic 1 tab PO DAILY 01/13/23 04/26/23 History acid 0.8 mg tablet (Nephro-Todd) famotidine 10 mg tablet (Acid 20 mg PO DAILY 03/03/23 04/27/23 History Controller) alprazolam 1 mg tablet (Xanax) 1 mg PO ONCE #1 TAB 04/15/23 04/27/23 Rx oxycodone 5 mg tablet 5 mg PO Q8H PRN pain 3 days #9 tabs 04/27/23 Unknown Rx Allergy/AdvReac Type Severity Reaction Status Date / Time No Known Allergies Allergy Verified 07/01/23 14:58 Family History Mother Diabetes Heart disease Hypertension Father Hypertension Heart disease Brother Heart disease Hypertension Sister Heart disease Diabetes Surgical History History of appendectomy History of arteriovenostomy for renal dialysis (~03/2021) History of History of cholecystectomy History of coronary artery stent placement (06/2016) History of left heart catheterization (05/27/21) History of surgery Social History Smoking Status: Former smoker alcohol intake: never ROS ROS Narrative Mild chills. Denies burning micturition but unclear whether she understands or she has significant urine output as he is on dialysis Review of Systems ROS Unobtainable: due to mental condition and due to mental status Vital Signs Vital Signs Vital Signs: 11/18/23 17:08 Temperature 98.7 F Temperature Source Oral Pulse Rate 80 Respiratory Rate 18 Blood Pressure 178/73 H Blood Pressure Mean 108 Blood Pressure Source Monitor Blood Pressure Position Semi-Fowlers Blood Pressure Location Left Arm Pulse Ox 95 Oxygen Delivery Method Nasal Cannula Physical Exam Narrative General: Alert, Oriented x3, not cooperative, chronic mild cognitive deficit from previous stroke HEENT: Atraumatic, PERRLA, EOMI, Normocephalic Oral: No Gingival or Mucosal Lesions/ Ulcerations Neck: Supple, No JVD, Negative Carotid Bruits Chest wall/Lungs: Air entry severely diminished. No acute wheezing or coarse crepitation. Severe hypoxia. RR 18 pulmonary Cardiovascular: Regular rate, Regular Rhythm, Normal S1, Normal S2, No M/G/R Abdomen: Bowel Sounds Present, Soft, Non Tender, Non-Distended : No dysuria. No renal angle tenderness. No suprapubic tenderness. Extremities: mild bilateral pitting edema, Capillary Refill Less than 3 Seconds Skin: No rashes, No breakdown Musculoskeletal: ROM restricted at knees. Muscle strength 4/5 at knees and hip joints. No Tenderness to Palpation of Joints or Extremities Neurological: Cranial nerves II-XII grossly intact, DTR 2+/4. No acute focal neurological deficit. Psych/Mental Status: Flat affect. Results Lab / Micro Data 11/18/23 19:09 Assessment & Plan Assessment/Plan (1) Acute hypoxemic respiratory failure: (2) Bilateral pneumonia: PLAN: Plan This is 57-year-old female is being directly admitted from [facility] for acute onset of shortness of breath cough tachypnea and severe hypoxia consistent with bilateral pneumonia. 1. Acute hypoxic respiratory failure: Patient is being admitted in PCU. ABG and BiPAP ordered stat but patient is refusing it. I talked to the patient's sister and informed about her refusal and understanding. Discussed with nursing staff and respiratory therapist to put on Airvo. Pulmonary consult Tele-PCC. Patient not on oxygen. 2. Bilateral pneumonia: The patient's chart from the [facility] does not have blood work or chest x-ray report but she had blood work as mentioned in HPI as per appointment [facility] ED physician. Will try to obtain medical record. Labs stat ordered. Chest x-ray portable ordered stat. Started on IV Zosyn and vancomycin with pharmacy consult to dose vancomycin. Patient had 1 dose of IV ceftriaxone and Zithromax there and continue Zithromax from tomorrow a.m. SARS-CoV-2, RSV and flu PCR and respiratory panel ordered. Sputum culture and blood culture ordered. UA with urine culture ordered. Since there is no labs present in the chart therefore unclear about the diagnosis of sepsis and sepsis labs ordered. Patient history of hemodialysis and fluid restriction does not permit fluid bolus as per sepsis protocol. Patient was last admitted in June 2022 for right lower lobe pneumonia. Labs available so far INR normal. BMP consistent with ESRD on hemodialysis with K5.4. Mild hyponatremia 135. 3. ESRD on hemodialysis TTS: [facility] [employer] Dr. Granger has been consulted.AV fistula on right forearm. 4. Atypical chest pain probably from pneumonia. With non-STEMI in December 2020. She had cardiac stent in June 2016. Cycle cardiac enzymes. Repeat twelve-lead EKG. Continue patient's baseline cardiac medications with holding parameters As per ED physician, troponin was 29 there here 47. Troponin in normal range. ACS ruled out. 5. Cerebrovascular disease with previous stroke in 2019 with? vascular dementia-complicates care, medical course, recovery, and prognosis 6. DM type II: Glucose 153. Accu-Chek before meals and at bedtime with Humalog sliding scale coverage and hypoglycemia protocol. Living will/advanced directive/end of life care: Patient does not have living will or advanced directive. I talked to the patient's caregiver, Mrs. Stephy Roberts and said she does not have living will or power of network support manager for health. Her after discussion of benefits/risks procedures involved with full code, DNR CC arrest and DNR CC, the patient opted for full code but she is refusing for ABG or BiPAP.. Patient does want artificial life support including intubation, tube feed, ventilator and/chest compression, central venous catheter, vasopressor and DC shock if needed Total time spent in [id number] encounter in discussion of advanced directive 17 minutes. Echo 07/22/2022 Interpretation Summary Normal LV size. Left ventricular systolic function is normal. The estimated ejection fraction is 65 %. Bubble contrast study negative for right to left interatrial shunt. Mild concentric left ventricular hypertrophy. Pulmonary artery systolic pressure is 40 mmHg. Charges/Coding Visit Charges Inpatient E&M: 46671 Init Hosp L3 Procedures Hospitalists Procedures: 13677 Advncd Care Plan 30 Min
--- NOTE | 2023-11-18 17:34 | CPS ---
Patient refused ABG and BiPap. Patient remains on 8L HFNC.
--- NOTE | 2023-11-18 17:56 | EKG12_ITS ---
Test Reason : ADMIT EKG Blood Pressure : / mmHG Vent. Rate : 081 BPM Atrial Rate : 081 BPM P-R Int : 248 ms QRS Dur : 096 ms QT Int : 390 ms P-R-T Axes : 040 -07 031 degrees QTc Int : 453 ms Sinus rhythm with 1st degree A-V block Septal infarct (cited on or before 22-JUL-2022) Possible Lateral infarct , age undetermined Abnormal ECG Confirmed by GAYLA REYES, JOLLY ([id number]), market editor TONY WALKER ([id number]) on 11/20/2023 7:17:12 AM Referred By: Mahamed Dunn Confirmed By:SWAPNA SHUKLA MD
--- NOTE | 2023-11-18 18:05 | RAD_ITS ---
INDICATION: SOB EXAMINATION/TECHNIQUE: X-RAY - XR Chest 1 View COMPARISON: 07/22/2022. FINDINGS: Bilateral patchy interstitial and airspace opacities. The heart is mildly enlarged. Questionable trace left pleural effusion. No pneumothorax. No acute osseous abnormalities. RAD/Chest 1 View (Portable) IMPRESSION: Bilateral patchy interstitial and airspace opacities may represent edema and/or infection. Questionable trace left pleural effusion. Electronically Signed: Mario Melvin MD at 20:36 EDT ,
[2023-11-18] MEDS: Vancomycin HCl 1,750 MG in 0.9% Normal Saline (500mL Bag) 500 ML 250 MG IV (19:00)
[2023-11-18 19:33] LABS: International Normalized Ratio 1.1
[2023-11-18 19:41] LABS: ALB/GLOB Ratio 0.8 RATIO (0.9-2.4); AST(SGOT) 25 U/L (15-37); Alanine Aminotransfer ALT/SGPT 24 U/L (13-56); Albumin, Serum 3.1 g/dL (3.2-5.0); Alkaline Phosphatase 89 U/L (45-117); Anion Gap 7 (5-15); BUN 73 mg/dL (7-18); BUN/Creat Ratio 11.4 RATIO (10-20); CPK Total, Creatine Kinase 86 U/L (26-192); Calcium,Total 8.1 mg/dL (8.5-10.1); Chloride 106 mmol/L (98-107); EST Glomerular Filtration Rate 7 mL/min (>60); Est Glom Filt Rate - Afr Amer 9 mL/min (>60); Estimated Creatinine Clearance 11.44 ml/min; Globulin 3.8 g/dL (2.2-4.2); Glucose 153 mg/dL (74-106); Magnesium 2.2 mg/dL (1.6-2.6); Potassium 5.4 mmol/L (3.5-5.1); Protein, Total 6.9 g/dL (6.4-8.2); Sodium Level 135 mmol/L (136-145); Troponin-I HS 47 pg/mL (3.0-54.0)
[2023-11-18] MEDS: Ipratropium/Albuterol Sulfate 3 ML AMPUL.NEB INHALATION ×2 (20:00→23:37)
--- NOTE | 2023-11-18 20:03 | PCM.RX.CS ---
Consult Type of Intervention Type of Consult: New start Suspected Infection Suspected Infection: Pneumonia Prior Doses of Antibiotics Prior Doses of Antibiotics Received/Current Regimen: 1750MG of Vancomycin given 11/18/23 @ 1900 Labs Labs: Sodium 135 mmol/L (136-145) L 11/18/23 19:09 Potassium 5.4 mmol/L (3.5-5.1) H 11/18/23 19:09 Chloride 106 mmol/L (98-107) 11/18/23 19:09 Carbon Dioxide 22.0 mmol/L (21.0-32.0) 11/18/23 19:09 Anion Gap 7 (5-15) 11/18/23 19:09 BUN 73 mg/dL (7-18) H 11/18/23 19:09 Creatinine 6.40 mg/dL (0.55-1.02) H 11/18/23 19:09 Est GFR (MDRD) Af Amer 9 mL/min (>60) L 11/18/23 19:09 Est GFR (MDRD) Non-Af 7 mL/min (>60) L 11/18/23 19:09 BUN/Creatinine Ratio 11.4 RATIO (10-20) 11/18/23 19:09 Glucose 153 mg/dL (74-106) H 11/18/23 19:09 Microbiology Microbiology: Microbiology 11/18/23 17:20 Mucosa - Nasopharyngeal SARS-CoV-2, Influenza & RSV (PCR) - Final Dosing Weight Weight used for dosin.6 kg Estimated Creatinine Clearance Estimated Creatinine Clearance: 11 Goal Trough Goal Trough: 15-20 mcg/mL Pharmacy Plan for Drug Dosing Pharmacy Plan for Drug Dosing: Random Vancomycin level ordered for 11/20/23 @ 0600 Pharmacy Service will continue to monitor and adjust dosing as required. Date/Time Labs Ordered Labs to be done on [date and time ordered]: 11/20/23 @ 0600
[2023-11-18 20:18] LABS: Allen Test Positive; Base Excess -1 mmol/L (-2 to +2); Bicarbonate 23.3 mmol/L (22-26); Blood Gas Specimen Type ART; Mode Not entered; O2 Delivery Device NRB; PO2 72 mmHG (75-100); SITE L Radial; SO2 95 % (95-99); Total Carbon Dioxide 24 mmol/L; pCO2 37.1 mmHg (35-45); pH 7.41 (7.35-7.45)
[2023-11-18 20:20] LABS: Absolute Lymphocyte Count 0.65 X10^3/uL (0.83-4.51); Absolute Neutrophil Count 17.2 X10^3/uL (2.0-7.7); Basophil# 0.04 X10^3/uL; Basophil% 0.2 % (0-1); Eosinophil# 0.06 X10^3/uL; Eosinophils% 0.3 % (0-5); Hematocrit 36.1 % (37-47); Hemoglobin 11.6 g/dL (12.0-15.0); Lymphocyte # 0.65 X10^3/ul (0.83-4.51); Lymphocyte % 3.4 % (19-41); Mean Corp Hgb Conc 32.1 g/dL (32-36); Mean Corpuscular Hgb 30.8 pg (27.0-32.0); Mean Corpuscular Volume 95.8 fL (81-99); Monocyte# 1.23 X10^3/uL; Monocyte% 6.4 % (0-10); NRBC Flagged by Analyzer 0 % (0-5); Neutrophil # 17.15 X10^3/uL (2.7-7.7); Platelet Count 207 K/mm3 (150-450); RBC Distribution Width CV 15.8 % (11.6-14.6); RBC Distribution Width SD 55.3 fl (35.1-43.9); Red Blood Count 3.77 M/mm3 (4.2-5.4); White Blood Count 19.3 K/mm3 (4.4-11.0)
[2023-11-18] MEDS: Ondansetron 4 MG/2 ML Vial IV (20:23)
[2023-11-18] MEDS: 0.9% Saline Lock 10 ML Syringe IV (20:24)
--- NOTE | 2023-11-18 20:25 | PCM.HOSP.N ---
Hospitalist Note Called as patient had an emesis which she aspirated and required being placed on 14 L nonrebreather. She is sleepy but awakens easily. I did get her to agree to a stat ABG. Chest x-ray is pending. She does not appear to be in any extremis. She does have crackles bilaterally but more on the right base than the left and nursing states this is considerably exacerbated since she had the aspiration event. Will schedule Zofran every 6 hours for now to avoid further emesis as we may also need to put her on BiPAP depending her ABG looks like.
--- NOTE | 2023-11-18 20:30 | RAD_ITS ---
INDICATION: possible aspiration EXAMINATION/TECHNIQUE: X-RAY - XR Chest 1 View COMPARISON: 11/18/2023. FINDINGS: Interval worsening in aeration of the lungs. The cardiomediastinal silhouette is stable. No pneumothorax. The osseous structures are unchanged. RAD/Chest 1 View (Portable) IMPRESSION: Interval worsening in aeration of the lungs. Otherwise, no change from prior study. Electronically Signed: Mario Melvin MD at 22:18 EDT ,
[2023-11-18 20:31] LABS: Lactic Acid 1.3 mmol/L (0.4-1.9)
--- NOTE | 2023-11-18 20:48 | NURSING ---
pt's daughter, Madi, was updated by this RN about pt's current medical status.
[2023-11-18 21:46] LABS: Troponin-I HS 47 pg/mL (3.0-54.0)
[2023-11-18] MEDS: Heparin Injection (Vial) 5,000 UNIT/ML VIAL 5000 UNIT SC (22:43)
[2023-11-18] MEDS: guaiFENesin 1,200 MG Tablet 1200 MG PO (22:45)
[2023-11-18] MEDS: Piperacil/Tazobactam 3.375 GM in 0.9% Normal Saline (50mL MB+) 50 ML IV (22:50)
--- NOTE | 2023-11-18 22:54 | NURSING ---
pt's son, Fredrick, was updated by this RN about pt's current medical status.
[2023-11-18] MEDS: Insulin Lispro 100 UNIT/ML INSULN.PEN SC (23:44)
[2023-11-19] VITALS (25 sets, daily range): BP systolic 127–289; BP diastolic 47–75; PULSE 70–84; RESP 14–25; TEMP 36.6–37.1; O2SAT 94–100; BMI 44.9; BMI 43.7
[2023-11-19 00:06] LABS: Bedside Glucose 181 mg/dL (74-106)
[2023-11-19 00:46] LABS: Troponin-I HS 48 pg/mL (3.0-54.0)
[2023-11-19] MEDS: Ondansetron 4 MG/2 ML Vial IV ×4 (03:10→22:10)
[2023-11-19] MEDS: 0.9% Saline Lock 10 ML Syringe IV ×4 (03:11→22:10)
[2023-11-19] MEDS: Ipratropium/Albuterol Sulfate 3 ML AMPUL.NEB INHALATION ×3 (03:18→19:00)
[2023-11-19] MEDS: Insulin Lispro 100 UNIT/ML INSULN.PEN SC ×3 (05:46→17:24)
[2023-11-19 06:01] LABS: Absolute Lymphocyte Count 0.43 X10^3/uL (0.83-4.51); Absolute Neutrophil Count 15.9 X10^3/uL (2.0-7.7); Basophil# 0.02 X10^3/uL; Basophil% 0.1 % (0-1); Hematocrit 33.2 % (37-47); Hemoglobin 10.4 g/dL (12.0-15.0); Lymphocyte # 0.43 X10^3/ul (0.83-4.51); Lymphocyte % 2.6 % (19-41); Mean Corp Hgb Conc 31.3 g/dL (32-36); Mean Corpuscular Hgb 30.9 pg (27.0-32.0); Mean Corpuscular Volume 98.5 fL (81-99); Mean Platelet Vol. 13.2 fl (6.2-12.0); Monocyte# 0.29 X10^3/uL; Monocyte% 1.7 % (0-10); NRBC Flagged by Analyzer 0 % (0-5); Neutrophil # 15.88 X10^3/uL (2.7-7.7); Neutrophil % 94.8 % (47-70); POSITIVE DIFFERENTIAL YES; Platelet Count 130 K/mm3 (150-450); RBC Distribution Width CV 15.3 % (11.6-14.6); RBC Distribution Width SD 54.9 fl (35.1-43.9); Red Blood Count 3.37 M/mm3 (4.2-5.4); White Blood Count 16.8 K/mm3 (4.4-11.0)
--- NOTE | 2023-11-19 06:41 | PCM.PN.HOSP ---
Reason for Visit Reason for Visit: Diagnoses Pneumonia, unspecified organism (11/18/23) Acute respiratory failure with hypoxia (11/18/23) Subjective Subjective Patient with significant improvement from previous events overnight as aspiration event noted with required Airvo transiently and aggressive/encephalopathic reported behavior. Patient currently feels improved she notes, requesting Airvo to be taken off for weaned, interacting and discussing appropriately. She notes no current coughing and feels certainly less dyspneic than she had prior. Patient denies fevers, chills, nausea, emesis, abdominal pain, chest pain. Objective Data Objective Data Vital Signs: Vital Signs Temp Pulse Resp BP Pulse Ox O2 Del Method O2 Flow Rate 97.9 F 70 18 139/71 H 94 Airvo 45 11/19/23 03:00 11/19/23 03:19 11/19/23 03:19 11/19/23 03:00 11/19/23 03:20 11/19/23 05:05 11/19/23 05:05 FiO2 61 11/19/23 05:05 Oxygen Flow Rate (L/min) 45 Oxygen Delivery Method Airvo Weight: 246 lb 0.574 oz Body Mass Index (BMI) 45.0 Intake & Output: Intake and Output for Last 24 Hours 11/17/23 11/18/23 11/19/23 23:59 23:59 23:59 Intake Total 595 / 595 80 / 80 Balance 595 / 595 80 / 80 Lab / Micro Data 11/19/23 05:30 11/19/23 05:30 Labs: Laboratory Results - last 24 hr 11/18/23 19:09: PT 14.0, INR 1.1, APTT 27.0, Sodium 135 L, Potassium 5.4 H, Chloride 106, Carbon Dioxide 22.0, Anion Gap 7, BUN 73 H, Creatinine 6.40 H, Estim Creat Clear Calc 11.44, Est GFR (MDRD) Af Amer 9 L, Est GFR (MDRD) Non-Af 7 L, BUN/Creatinine Ratio 11.4, Glucose 153 H, Calcium 8.1 L, Magnesium 2.2, Total Bilirubin 0.60, AST 25, ALT 24, Alkaline Phosphatase 89, Total Creatine Kinase 86, Troponin I High Sens 47, Total Protein 6.9, Albumin 3.1 L, Globulin 3.8, Albumin/Globulin Ratio 0.8 L 11/18/23 19:50: WBC 19.3 H, RBC 3.77 L, Hgb 11.6 L, Hct 36.1 L, MCV 95.8, MCH 30.8, MCHC 32.1, RDW Std Deviation 55.3 H, RDW Coeff of [place] 15.8 H, Plt Count 207, MPV 13.0 H, Immature Gran % (Auto) 0.700, Neut % (Auto) 89.0 H, Lymph % (Auto) 3.4 L, Bonner % (Auto) 6.4, Eos % (Auto) 0.3, Baso % (Auto) 0.2, Absolute Neuts (auto) 17.2 H, Absolute Lymphs (auto) 0.65 L, Nucleated RBC % 0, Lactic Acid 1.3 11/18/23 21:13: Troponin I High Sens 47 11/18/23 23:43: POC Glucose 181 H 11/19/23 00:20: Troponin I High Sens 48 11/19/23 05:30: WBC 16.8 H, RBC 3.37 L, Hgb 10.4 L, Hct 33.2 L, MCV 98.5, MCH 30.9, MCHC 31.3 L, RDW Std Deviation 54.9 H, RDW Coeff of [place] 15.3 H, Plt Count 130 L, MPV 13.2 H, Immature Gran % (Auto) 0.800, Neut % (Auto) 94.8 H, Lymph % (Auto) 2.6 L, Bonner % (Auto) 1.7, Eos % (Auto) 0.0, Baso % (Auto) 0.1, Absolute Neuts (auto) 15.9 H, Absolute Lymphs (auto) 0.43 L, Nucleated RBC % 0 Micro: Microbiology 11/18/23 17:20 Mucosa - Nasopharyngeal Respiratory Panel (PCR) - Final 11/18/23 17:20 Mucosa - Nasopharyngeal SARS-CoV-2, Influenza & RSV (PCR) - Final ABG Data ABG results: ABG 11/18/23 20:14 Specimen Type ART Sample Site L Radial pH 7.41 Bicarbonate Actual 23.3 Total CO2 24 Base Excess -1 O2 Saturation 95 O2 % 100.0 ABG pCO2 37.1 ABG pO2 72 L Lalito Test Positive O2 Delivery Device NRB Vent Mode Not entered Radiography Diagnostic Testing: Radiology Impression Chest X-Ray 11/18/23 18:05 IMPRESSION: Bilateral patchy interstitial and airspace opacities may represent edema and/or infection. Questionable trace left pleural effusion. Electronically Signed: Mario Melvin MD at 20:36 EDT , Chest X-Ray 11/18/23 20:30 IMPRESSION: Interval worsening in aeration of the lungs. Otherwise, no change from prior study. Electronically Signed: Mario Melvin MD at 22:18 EDT , Physical Exam Narrative Physical Examination: General: Awake, alert, oriented x 3 and cooperative, seated upright in the PCU bed, fatigued but notes feeling improved Skin: Normal color, normal turgor, no icterus, no cyanosis except occasional staged ecchymoses. HEENT: AT/NC, EOMI, PERRLA, mildly dry MM, Airvo in place. Lungs: Significantly diminished, greater bases, improved effort from previous description, no current appreciated rales, rhonchi or wheezing, rate and effort appropriate. Heart: Regular rate and rhythm; no gallop, rub audible. Abdomen: Soft, morbidly obese, NTTP, distant BS, difficult appreciate distention given habitus. Extremities: No cyanosis, no clubbing, bilateral lower extremity distal mild not markedly pitting. Neurological: Patient awake, alert, oriented as noted, cognitive function intact; pupils equally reactive to light and accommodation, cranial nerves grossly normal, moving all 4 extremities, no focal deficits, strength improved, moderately globally decreased. Psychiatric: Affect appears fatigued otherwise normal, no acute evidence of depressive or anxiety feelings. Assessment & Plan Assessment/Plan (1) Acute hypoxemic respiratory failure: (2) Bilateral pneumonia: PLAN: Plan The patient is a 57 y/o F w/ PMHx: COPD, ESRD on HD TTS, HTN, HLD, Hx CVA, Diabetes mellitus type II, Morbid obesity, CAD, HFpEF, Former tobacco use, Chronic anemia/AOCD who presents to [facility] as direction admission from [facility] ED 11/18/23 with history of dyspnea, cough, fatigue and malaise persisting for 2 days prompting outside facility evaluation with concern for bilateral pneumonia and hypoxia prompting transfer. #1. Acute hypoxic respiratory failure secondary to acute bilateral pneumonia, possible gram-negative/gram-positive organisms with concern for concurrent acute on chronic COPD exacerbation: Upon presentation patient with concern, ABG obtained and placed on BiPAP at that time, eventually refused BiPAP and unfortunately transition to Airvo, early presentation coughing fit following eating with concern for aspiration however clinically improved following this, full respiratory viral panel negative, urine antigens negative pending however end-stage renal disease thus may not obtain significant urine sample but will continue to monitor, will wean off Airvo to room air as able, maintained on IV vancomycin and IV Zosyn, continue IV Solu-Medrol therapy, sputum culture ordered and pending, blood culture ordered and pending, continue with dialysis as noted. #2. Pleuritic chest pain, suspected secondary to #1: Given prior NSTEMI and previous PCI maintain on telemetry, cardiac enzymes cycled which were unremarkable, EKG with no acute cardiopulmonary findings. #3. ESRD: Patient with ongoing hemodialysis Thursday, , Thursday, nephrology Dr. Granger consulted, dialysis 11/19/2023, noted Access AV right upper extremity. #4. History CVA with associated vascular dementia: Previous CVA 2019 with associated vascular mention, complicates course, continue aspirin, continue hypertensive regimen as BP allows, continue statin therapy, continue insulin/diabetic regimen. #5. CAD: Status post PCI, continue patient home aspirin, statin, Coreg, not on TAYLOR/ARB. #6. HFpEF: 07/02/2022 echocardiogram with LV systolic function normal, normal LV size, EF 65%, mild concentric LVH, PASP 40 mmHg. Will continue patient home aspirin, statin, Coreg, hydralazine, confirming with nephrology as initiated on Lasix oral twice daily regimen however is on torsemide outpatient twice daily thus clarifying if they want a restart home regimen or continue with Lasix. #7. Hypertension: Continue home regimen including amlodipine, Coreg, hydralazine with hold parameters as needed, PRN hydralazine. Confirming with nephrology as initiated on Lasix oral twice daily regimen however is on torsemide outpatient twice daily thus clarifying if they want a restart home regimen or continue with Lasix. #8. Hyperlipidemia: Can patient on statin, ezetimibe home therapy. #9. Diabetes mellitus type II with chronic neuropathy: Hold oral home regimen, continue home insulin regimen, ADA diet, accu checks w/ ISS. Additionally we will continue patient home gabapentin as needed regimen. #10. Gout: We will continue patient on allopurinol regimen. #11. DVT prophylaxis: Heparin #12. CODE STATUS: Full Code. Charges/Coding Visit Charges Inpatient E&M: 37516 Subs Hosp L3
[2023-11-19 06:55] LABS: Bedside Glucose 227 mg/dL (74-106)
[2023-11-19 07:19] LABS: Anion Gap 9 (5-15); BUN 87 mg/dL (7-18); BUN/Creat Ratio 12.6 RATIO (10-20); Calcium,Total 7.9 mg/dL (8.5-10.1); Chloride 104 mmol/L (98-107); Creatinine, Serum 6.91 mg/dL (0.55-1.02); EST Glomerular Filtration Rate 7 mL/min (>60); Est Glom Filt Rate - Afr Amer 8 mL/min (>60); Estimated Creatinine Clearance 10.59 ml/min; Glucose 241 mg/dL (74-106); Sodium Level 135 mmol/L (136-145)
[2023-11-19] MEDS: Heparin Injection (Vial) 5,000 UNIT/ML VIAL 5000 UNIT SC ×2 (08:28→22:30)
[2023-11-19] MEDS: 0.9% Normal Saline 1,000 ML IV.SOLN. 1000 ML OPERA.SITE (10:15)
[2023-11-19] MEDS: PureFlow B 2K Dialysis Soln 1 BAG 6 BAG PF (10:15)
--- NOTE | 2023-11-19 10:45 | CASEMGMT ---
Addendum entered by Marine Matos 11/19/23 14:12: RN TATUM into pt room, pt is finished with dialysis. Pt laying in bed with eyes closed. Pt having a hard time staying awake to answer questions. RN CM to check back for assessment. Original Note: RN CM into pt room for RN CM assessment, pt receiving dialysis and nurse states pt has been really drowsy in the last half hour. RN CM to complete assessment at a later time.
[2023-11-19] MEDS: Azithromycin 250 MG Tablet 500 MG PO (11:48)
[2023-11-19] MEDS: guaiFENesin 1,200 MG Tablet 1200 MG PO ×2 (11:48→22:23)
[2023-11-19] MEDS: Piperacil/Tazobactam 3.375 GM in 0.9% Normal Saline (50mL MB+) 50 ML IV ×2 (11:48→22:15)
[2023-11-19 12:19] LABS: Bedside Glucose 271 mg/dL (74-106)
--- NOTE | 2023-11-19 13:36 | CON.PCM.RE_ITS ---
Assessment & Plan Assessment/Plan (1) ESRD (end stage renal disease) on dialysis: (2) Acute hypoxemic respiratory failure: (3) Bilateral pneumonia: (4) Hyperkalemia: PLAN: Plan This is a 57-year-old female with past medical history significant for ESRD currently dialyzes on a Thursday schedule via AV fistula in [place] who was admitted to the hospital for acute hypoxemic respiratory failure, pneumonia. Nephrology consulted in view of history of ESRD and for dialysis arrangements. Patient did undergo hemodialysis today on 2K bath and tolerated fluid removal. Her oxygenation seems to have improved, currently tolerating Airvo. Will evaluate for dialysis/ultrafiltration/fluid removal tomorrow. Likely patient will dialyze again on Thursday to regularize her outpatient hemodialysis schedule. Potassium was 6 this morning predialysis, she dialyzed on 2K bath, we will check potassium level in AM. We will add low potassium diet restrictions. Patient has history of anemia of chronic disease, hemoglobin is 10.4. Will monitor hemoglobin trends. She does not need KIM with dialysis today. Blood cultures pending, patient is on IV antibiotics/IV steroids. Blood pressures acceptable not on any antihypertensives, expect further improvement in bps with fluid removal with dialysis. Further orders forthcoming as hospitalization evolves, thank you for allowing us to participate in the care of Ms. Davis. HPI Consult Data Date of Consult: 11/19/23 HPI Narrative HPI Narrative: ZAYDA DAVIS, is a 57 F who presented to [facility] emergency room yesterday with complaints of shortness of breath, cough. Workup in the emergency room concerning for bilateral pneumonia therefore patient was transferred to [facility] for admission and for dialysis arrangements. Nephrology consulted as patient has ESRD and for dialysis management. Patient currently dialyzes on a Thursday schedule at kidney center in [place]. Per patient she last dialyzed Thursday. Patient did undergo hemodialysis today tolerated treatment with fluid removal. [facility] Medical History Acute alteration in mental status Acute renal injury due to circulatory failure Anxiety Atherosclerosis of coronary artery of [place] heart without angina pectoris Bilateral carotid bruits Cardiology follow-up encounter Cardiology follow-up encounter Chronic heart failure with preserved ejection fraction (HFpEF) Community acquired pneumonia COVID-19 (01/20/21) Debility Dependence on renal dialysis Depression Dietary restriction Easy bruising ESRD (end stage renal disease) on dialysis Essential hypertension Former smoker Generalized weakness GERD (gastroesophageal reflux disease) Headache History of cholelithiasis History of edema History of non-ST elevation myocardial infarction (NSTEMI) (01/20/21) History of renal calculi Hx of cardiovascular stress test Hx of echocardiogram Hyperlipidemia Hypoxia Inability to walk Insulin dependent diabetes mellitus Ischemic cerebrovascular accident (CVA) (04/2018) Low iron Malignant hypertension Morbid obesity Non-STEMI (non-ST elevated myocardial infarction) (01/20/21) Respiratory insufficiency TIA (transient ischemic attack) Type 2 diabetes mellitus without complication Wears glasses Home Medications ?Medication ?Instructions ?Recorded ?Last Taken ?Type aspirin 81 mg chewable tablet 81 mg PO DAILY@0800 HEART HEALTH 07/15/18 04/26/23 History atorvastatin 80 mg tablet 80 mg PO QHS CHOLESTEROL 08/04/18 04/26/23 History torsemide 100 mg tablet 50 mg PO BID diuretic 04/14/19 04/26/23 History melatonin 5 mg tablet 5 mg PO HS PRN Sleep 08/03/20 01/19/21 History carvedilol 12.5 mg tablet 6.25 mg PO BID blood pressure 09/20/20 04/27/23 History acetaminophen 325 mg tablet 650 mg (2 x 325 mg) PO Q6H PRN PRN 10/03/20 Unknown Rx (Tylenol) Pain 1-10 Or Fever #0 tabs amlodipine 10 mg tablet 10 mg PO DAILY blood pressure 01/20/21 04/27/23 History insulin aspart U-100 100 unit/mL 5 unit subcut BID blood sugar 03/21/21 04/26/23 History (3 mL) subcutaneous pen (Novolog FlexPen U-100 Insulin aspart) insulin glargine U-300 conc 300 20 unit subcut BREAKFAST diabetes 03/21/21 04/26/23 History unit/mL (1.5 mL) subcutaneous pen (Toujeo SoloStar U-300 Insulin) gabapentin 300 mg capsule 300 mg PO TID PRN NEUROPATHY 12/10/22 Unknown History allopurinol 100 mg tablet 100 mg PO DAILY 01/13/23 04/26/23 History cholecalciferol (vitamin D3) 50 50 mcg PO DAILY 01/13/23 04/26/23 History mcg (2,000 unit) capsule ezetimibe 10 mg tablet 10 mg PO QHS 01/13/23 04/26/23 History hydralazine 100 mg tablet 100 mg PO TID 01/13/23 Unknown History vitamin B complex and vitamin C 1 cap PO DAILY 01/13/23 04/26/23 History no.20-folic acid 1 mg capsule ([place] Caps) vitamin B complex-vitamin C-folic 1 tab PO DAILY 01/13/23 04/26/23 History acid 0.8 mg tablet (Nephro-Todd) Allergy/AdvReac Type Severity Reaction Status Date / Time No Known Allergies Allergy Verified 07/01/23 14:58 Family History Mother Diabetes Heart disease Hypertension Father Hypertension Heart disease Brother Heart disease Hypertension Sister Heart disease Diabetes Surgical History History of appendectomy History of arteriovenostomy for renal dialysis (~03/2021) History of History of cholecystectomy History of coronary artery stent placement (06/2016) History of left heart catheterization (05/27/21) History of surgery Social History Smoking Status: Former smoker alcohol intake: never ROS ROS Narrative As in HPI and past medical history Physical Exam Narrative Alert and oriented, no apparent distress S1, S2, RRR Diminished breath sounds, faint rhonchi. Oxygenation requirement is Airvo Abdomen soft, nontender No pitting edema AV fistula right upper arm positive thrill and bruit Lab / Micro Data 11/19/23 05:30 11/19/23 05:30 Labs: Laboratory Results - last 24 hr 11/18/23 19:09: PT 14.0, INR 1.1, APTT 27.0, Sodium 135 L, Potassium 5.4 H, Chloride 106, Carbon Dioxide 22.0, Anion Gap 7, BUN 73 H, Creatinine 6.40 H, Estim Creat Clear Calc 11.44, Est GFR (MDRD) Af Amer 9 L, Est GFR (MDRD) Non-Af 7 L, BUN/Creatinine Ratio 11.4, Glucose 153 H, Calcium 8.1 L, Magnesium 2.2, Total Bilirubin 0.60, AST 25, ALT 24, Alkaline Phosphatase 89, Total Creatine Kinase 86, Troponin I High Sens 47, Total Protein 6.9, Albumin 3.1 L, Globulin 3.8, Albumin/Globulin Ratio 0.8 L 11/18/23 19:50: WBC 19.3 H, RBC 3.77 L, Hgb 11.6 L, Hct 36.1 L, MCV 95.8, MCH 30.8, MCHC 32.1, RDW Std Deviation 55.3 H, RDW Coeff of [place] 15.8 H, Plt Count 207, MPV 13.0 H, Immature Gran % (Auto) 0.700, Neut % (Auto) 89.0 H, Lymph % (Auto) 3.4 L, [place] % (Auto) 6.4, Eos % (Auto) 0.3, Baso % (Auto) 0.2, Absolute Neuts (auto) 17.2 H, Absolute Lymphs (auto) 0.65 L, Nucleated RBC % 0, Lactic Acid 1.3 11/18/23 21:13: Troponin I High Sens 47 11/18/23 23:43: POC Glucose 181 H 11/19/23 00:20: Troponin I High Sens 48 11/19/23 05:30: WBC 16.8 H, RBC 3.37 L, Hgb 10.4 L, Hct 33.2 L, MCV 98.5, MCH 30.9, MCHC 31.3 L, RDW Std Deviation 54.9 H, RDW Coeff of [place] 15.3 H, Plt Count 130 L, MPV 13.2 H, Immature Gran % (Auto) 0.800, Neut % (Auto) 94.8 H, Lymph % (Auto) 2.6 L, [place] % (Auto) 1.7, Eos % (Auto) 0.0, Baso % (Auto) 0.1, Absolute Neuts (auto) 15.9 H, Absolute Lymphs (auto) 0.43 L, Nucleated RBC % 0, Sodium 135 L, Potassium 6.0 H*, Chloride 104, Carbon Dioxide 22.0, Anion Gap 9, BUN 87 H, Creatinine 6.91 H, Estim Creat Clear Calc 10.59, Est GFR (MDRD) Af Amer 8 L, Est GFR (MDRD) Non-Af 7 L, BUN/Creatinine Ratio 12.6, Glucose 241 H, Calcium 7.9 L 11/19/23 05:46: POC Glucose 227 H 11/19/23 11:44: POC Glucose 271 H Micro: Microbiology 11/18/23 17:20 Mucosa - Nasopharyngeal Respiratory Panel (PCR) - Final 11/18/23 17:20 Mucosa - Nasopharyngeal SARS-CoV-2, Influenza & RSV (PCR) - Final ABG Data ABG results: ABG 11/18/23 20:14 Specimen Type ART Sample Site L Radial pH 7.41 Bicarbonate Actual 23.3 Total CO2 24 Base Excess -1 O2 Saturation 95 O2 % 100.0 ABG pCO2 37.1 ABG pO2 72 L Lalito Test Positive O2 Delivery Device NRB Vent Mode Not entered Imaging Radiology Impression Chest X-Ray 11/18/23 18:05 IMPRESSION: Bilateral patchy interstitial and airspace opacities may represent edema and/or infection. Questionable trace left pleural effusion. Electronically Signed: Mario Melvin MD at 20:36 EDT , Chest X-Ray 11/18/23 20:30 IMPRESSION: Interval worsening in aeration of the lungs. Otherwise, no change from prior study. Electronically Signed: Mario Melvin MD at 22:18 EDT ,
[2023-11-19 17:25] LABS: Anion Gap 9 (5-15); BUN 66 mg/dL (7-18); BUN/Creat Ratio 12.6 RATIO (10-20); Calcium,Total 7.9 mg/dL (8.5-10.1); Chloride 101 mmol/L (98-107); Creatinine, Serum 5.25 mg/dL (0.55-1.02); EST Glomerular Filtration Rate 9 mL/min (>60); Est Glom Filt Rate - Afr Amer 11 mL/min (>60); Estimated Creatinine Clearance 13.72 ml/min; Glucose 368 mg/dL (74-106); Potassium 5.1 mmol/L (3.5-5.1); Sodium Level 136 mmol/L (136-145)
[2023-11-19 17:50] LABS: Bedside Glucose 301 mg/dL (74-106)
[2023-11-19 20:57] LABS: Mucous, Urine 0 SEEN /hpf (<or=2+)
[2023-11-19 21:05] LABS: Color, Urine Yellow (Yellow); Glucose, Dipstick 100 mg/dl (Normal); Ketone-Dipstick Negative (Negative); Leukocyte Esterase-Dipstick 100 /ul (Negative); Nitrite-Dipstick Positive (Negative); Occult Blood-Urine 150 /ul (Negative); Protein-Dipstick 500 mg/dl (Negative); Urine Bilirubin Dipstick Negative (Negative); Urine Clarity Sl. Cloudy (Clear); Urine Urobilinogen Normal (Normal)
[2023-11-19 21:28] LABS: Bacteria 1+ /hpf (None Seen); Red Blood Cells-Urine 5-10 SEEN /hpf (0-5); Squamous Epithelial Cells - UA 5-10 SEEN /hpf (5-10); White Blood Cells 10-25 SEEN /hpf (0-5)
[2023-11-19] MEDS: Furosemide 40 MG Tablet 100 MG PO (22:24)
[2023-11-19] MEDS: hydrALAZINE 50 MG Tablet 100 MG PO (22:24)
[2023-11-19] MEDS: Atorvastatin Calcium 80 MG Tablet PO (22:25)
[2023-11-19] MEDS: Carvedilol 6.25 MG Tablet PO (22:25)
[2023-11-19] MEDS: Ezetimibe 10 MG Tablet PO (22:26)
[2023-11-20] VITALS (19 sets, daily range): BP systolic 124–156; BP diastolic 63–77; PULSE 73–83; RESP 16–20; TEMP 36.3–36.8; O2SAT 78–99
[2023-11-20] MEDS: Ipratropium/Albuterol Sulfate 3 ML AMPUL.NEB INHALATION ×6 (00:07→23:09)
[2023-11-20 00:20] LABS: Bedside Glucose > 500 mg/dL (74-106)
[2023-11-20] MEDS: Insulin Lispro 100 UNIT/ML INSULN.PEN SC ×6 (00:29→17:31)
[2023-11-20 02:50] LABS: Bedside Glucose 474 mg/dL (74-106)
[2023-11-20] MEDS: Ondansetron 4 MG/2 ML Vial IV (03:25)
[2023-11-20 03:52] LABS: Bedside Glucose 311 mg/dL (74-106)
[2023-11-20 05:58] LABS: Absolute Lymphocyte Count 0.45 X10^3/uL (0.83-4.51); Absolute Neutrophil Count 14.5 X10^3/uL (2.0-7.7); Basophil# 0.02 X10^3/uL; Basophil% 0.1 % (0-1); Hematocrit 29.1 % (37-47); Hemoglobin 9.6 g/dL (12.0-15.0); Lymphocyte # 0.45 X10^3/ul (0.83-4.51); Lymphocyte % 2.8 % (19-41); Mean Corpuscular Hgb 31.2 pg (27.0-32.0); Mean Corpuscular Volume 94.5 fL (81-99); Mean Platelet Vol. 12.6 fl (6.2-12.0); Monocyte# 0.69 X10^3/uL; Monocyte% 4.4 % (0-10); NRBC Flagged by Analyzer 0 % (0-5); Neutrophil # 14.52 X10^3/uL (2.7-7.7); Neutrophil % 91.6 % (47-70); POSITIVE DIFFERENTIAL YES; Platelet Count 165 K/mm3 (150-450); RBC Distribution Width CV 15.2 % (11.6-14.6); RBC Distribution Width SD 52.5 fl (35.1-43.9); Red Blood Count 3.08 M/mm3 (4.2-5.4); White Blood Count 15.9 K/mm3 (4.4-11.0)
[2023-11-20] MEDS: hydrALAZINE 50 MG Tablet 100 MG PO ×3 (06:07→22:11)
[2023-11-20] MEDS: 0.9% Saline Lock 10 ML Syringe IV ×2 (06:09→22:06)
--- NOTE | 2023-11-20 06:21 | PCM.PN.HOSP ---
Reason for Visit Reason for Visit: Diagnoses Pneumonia, unspecified organism (11/18/23) Acute respiratory failure with hypoxia (11/18/23) Subjective Subjective Patient overnight with improvement in ability to wean from Airvo to nasal cannula reporting significant improvement in dyspnea sensation, less and coughing and improving weakness. The day prior she was significantly fatigued and still had Airvo until the late evening hours. Discussed current presentation with plan for ongoing therapy assessment, oxygen wean as able, continued IV antibiotics and possibility of discharge 11/21/2023 if continues to improve. Patient denies fevers, chills, nausea, emesis, abdominal pain, chest pain or dyspnea. Objective Data Objective Data Vital Signs: Vital Signs Temp Pulse Resp BP Pulse Ox O2 Del Method O2 Flow Rate 98.0 F 73 18 124/65 H 95 Nasal Cannula 2 11/20/23 06:02 11/20/23 06:07 11/20/23 06:02 11/20/23 06:07 11/20/23 06:02 11/20/23 06:02 11/20/23 06:02 FiO2 35 11/19/23 22:16 Oxygen Flow Rate (L/min) 2 Oxygen Delivery Method Nasal Cannula Weight: 239 lb 6.752 oz Body Mass Index (BMI) 43.7 Intake & Output: Intake and Output for Last 24 Hours 11/18/23 11/19/23 11/20/23 23:59 23:59 23:59 Intake Total 595 / 595 590 / 710 170 / 170 Output Total 2900 / 2960 60 / 60 Balance 595 / 595 -2310 / -2250 110 / 110 Lab / Micro Data 11/20/23 05:47 11/20/23 05:47 Labs: Laboratory Results - last 24 hr 11/19/23 05:30: Sodium 135 L, Potassium 6.0 H*, Chloride 104, Carbon Dioxide 22.0, Anion Gap 9, BUN 87 H, Creatinine 6.91 H, Estim Creat Clear Calc 10.59, Est GFR (MDRD) Af Amer 8 L, Est GFR (MDRD) Non-Af 7 L, BUN/Creatinine Ratio 12.6, Glucose 241 H, Calcium 7.9 L 11/19/23 05:46: POC Glucose 227 H 11/19/23 11:44: POC Glucose 271 H 11/19/23 17:03: Sodium 136, Potassium 5.1, Chloride 101, Carbon Dioxide 26.0, Anion Gap 9, BUN 66 H, Creatinine 5.25 H, Estim Creat Clear Calc 13.72, Est GFR (MDRD) Af Amer 11 L, Est GFR (MDRD) Non-Af 9 L, BUN/Creatinine Ratio 12.6, Glucose 368 H, Calcium 7.9 L 11/19/23 17:23: POC Glucose 301 H 11/19/23 20:39: Urine Color Yellow, Urine Clarity Sl. Cloudy, Urine pH 6.0, Ur Specific [place] 1.020, Urine Protein 500 H, Urine Glucose (UA) 100 H, Urine Ketones Negative, Urine Occult Blood 150 H, Urine Nitrite Positive H, Urine Bilirubin Negative, Urine Urobilinogen Normal, Ur Leukocyte Esterase 100 H, Urine RBC 5-10 SEEN, Urine WBC 10-25 SEEN, Ur Squamous Epith Cells 5-10 SEEN, Urine Bacteria 1+, Urine Mucus 0 SEEN 11/19/23 23:59: POC Glucose > 500 H* 11/20/23 01:45: POC Glucose 474 H* 11/20/23 03:32: POC Glucose 311 H 11/20/23 05:47: WBC 15.9 H, RBC 3.08 L, Hgb 9.6 L, Hct 29.1 L, MCV 94.5, MCH 31.2, MCHC 33.0 D, RDW Std Deviation 52.5 H, RDW Coeff of [place] 15.2 H, Plt Count 165, MPV 12.6 H, Immature Gran % (Auto) 1.100 H, Neut % (Auto) 91.6 H, Lymph % (Auto) 2.8 L, [place] % (Auto) 4.4, Eos % (Auto) 0.0, Baso % (Auto) 0.1, Absolute Neuts (auto) 14.5 H, Absolute Lymphs (auto) 0.45 L, Nucleated RBC % 0 Micro: Microbiology 11/19/23 20:39 Urine, Random Legionella Antigen - Final 11/19/23 20:39 Urine, Random Streptococcus pneumoniae Antigen (M - Final 11/18/23 17:20 Mucosa - Nasopharyngeal Respiratory Panel (PCR) - Final 11/18/23 17:20 Mucosa - Nasopharyngeal SARS-CoV-2, Influenza & RSV (PCR) - Final Physical Exam Narrative Physical Examination: General: Awake, alert, oriented x 3 and cooperative, seated upright in the PCU bedside chair, improved appearance, no evidence of any distress. Skin: Normal color, normal turgor, no icterus, no cyanosis except occasional staged ecchymoses. HEENT: AT/NC, EOMI, PERRLA, MMM, transition to nasal cannula. Lungs: Significantly diminished, greater bases, improved effort from previous description, no current appreciated rales, rhonchi or wheezing, rate and effort appropriate. Heart: Regular rate and rhythm; no gallop, rub audible. Abdomen: Soft, morbidly obese, NTTP, distant BS, difficult appreciate distention given habitus. Extremities: No cyanosis, no clubbing, bilateral lower extremity distal mild not markedly pitting. Neurological: Patient awake, alert, oriented as noted, cognitive function intact; pupils equally reactive to light and accommodation, cranial nerves grossly normal, moving all 4 extremities, no focal deficits, strength improved, moderately globally decreased. Psychiatric: Affect appears less fatigued, more interactive although is emotionally labile when we discuss her sister as she feels as though she was being yelled at for not doing physical therapy or ambulating the day prior but we discussed that this was not something we encouraged given Airvo with still ongoing, no acute evidence of depressive or anxiety feelings. Assessment & Plan Assessment/Plan (1) Acute hypoxemic respiratory failure: (2) Bilateral pneumonia: PLAN: Plan The patient is a 57 y/o F w/ PMHx: COPD, ESRD on HD TTS, HTN, HLD, Hx CVA, Diabetes mellitus type II, Morbid obesity, CAD, HFpEF, Former tobacco use, Chronic anemia/AOCD who presents to the [facility] as direction admission from [facility] ED 11/18/23 with history of dyspnea, cough, fatigue and malaise persisting for 2 days prompting outside facility evaluation with concern for bilateral pneumonia and hypoxia prompting transfer. #1. Acute hypoxic respiratory failure secondary to acute bilateral pneumonia, possible gram-negative/gram-positive organisms with concern for concurrent acute on chronic COPD exacerbation: Upon presentation patient with concern, ABG obtained and placed on BiPAP at that time, eventually refused BiPAP and unfortunately transition to Airvo, early presentation coughing fit following eating with concern for aspiration however clinically improved following this, full respiratory viral panel negative, urine antigens negative, 11/20/2023 weaned off of Airvo to nasal cannula, maintain on IV vancomycin and IV Zosyn with pending MRSA screen with de-escalation off aggressive BSA antibiotics as able, maintained on IV Solu-Medrol therapy, sputum culture ordered, blood culture ordered and pending, continued with dialysis as noted. #2. Pleuritic chest pain, suspected secondary to #1: Given prior NSTEMI and previous PCI maintain on telemetry, cardiac enzymes cycled which were unremarkable, EKG with no acute cardiopulmonary findings. #3. ESRD: Patient with ongoing hemodialysis Thursday, , Thursday, nephrology Dr. Granger consulted, dialysis 11/19/2023, noted Access AV right upper extremity. #4. History CVA with associated vascular dementia: Previous CVA 2019 with associated vascular mention, complicates course, continue aspirin, continue hypertensive regimen as BP allows, continue statin therapy, continue insulin/diabetic regimen. #5. CAD: Status post PCI, continue patient home aspirin, statin, Coreg, not on TAYLOR/ARB. #6. HFpEF: 07/02/2022 echocardiogram with LV systolic function normal, normal LV size, EF 65%, mild concentric LVH, PASP 40 mmHg. Will continue patient home aspirin, statin, Coreg, hydralazine, torsemide home regimen. #7. Hypertension: Continue home regimen including amlodipine, Coreg, hydralazine, torsemide with hold parameters as needed, PRN hydralazine. #8. Hyperlipidemia: Can patient on statin, ezetimibe home therapy. #9. Diabetes mellitus type II with chronic neuropathy: Hold oral home regimen, continue home insulin regimen, ADA diet, accu checks w/ ISS. Additionally we will continue patient home gabapentin as needed regimen. #10. Gout: We will continue patient on allopurinol regimen. #11. DVT prophylaxis: Heparin #12. CODE STATUS: Full Code. Charges/Coding Visit Charges Inpatient E&M: 33541 Subs Hosp L2
[2023-11-20 06:33] LABS: Vancomycin, Random Level 16.2 ug/mL (0.0-15.0)
[2023-11-20 06:39] LABS: ALB/GLOB Ratio 0.8 RATIO (0.9-2.4); AST(SGOT) 26 U/L (15-37); Alanine Aminotransfer ALT/SGPT 23 U/L (13-56); Albumin, Serum 2.9 g/dL (3.2-5.0); Alkaline Phosphatase 66 U/L (45-117); Anion Gap 8 (5-15); BUN 88 mg/dL (7-18); BUN/Creat Ratio 14.6 RATIO (10-20); Calcium,Total 8.5 mg/dL (8.5-10.1); Chloride 102 mmol/L (98-107); Creatinine, Serum 6.02 mg/dL (0.55-1.02); EST Glomerular Filtration Rate 8 mL/min (>60); Est Glom Filt Rate - Afr Amer 9 mL/min (>60); Estimated Creatinine Clearance 11.96 ml/min; Globulin 3.6 g/dL (2.2-4.2); Glucose 137 mg/dL (74-106); Potassium 5.2 mmol/L (3.5-5.1); Protein, Total 6.5 g/dL (6.4-8.2); Sodium Level 137 mmol/L (136-145)
[2023-11-20 06:46] LABS: Bedside Glucose 129 mg/dL (74-106)
--- NOTE | 2023-11-20 08:11 | PCM.RX.CS ---
Consult Antibiotic Management Pharmacy has been consulted to manage selected antibiotic: Vancomycin Type of Intervention Type of Consult: Follow-up Labs Labs: Sodium 137 mmol/L (136-145) 11/20/23 05:47 Potassium 5.2 mmol/L (3.5-5.1) H 11/20/23 05:47 Chloride 102 mmol/L (98-107) 11/20/23 05:47 Carbon Dioxide 27.0 mmol/L (21.0-32.0) 11/20/23 05:47 Anion Gap 8 (5-15) 11/20/23 05:47 BUN 88 mg/dL (7-18) H 11/20/23 05:47 Creatinine 6.02 mg/dL (0.55-1.02) H 11/20/23 05:47 Est GFR (MDRD) Af Amer 9 mL/min (>60) L 11/20/23 05:47 Est GFR (MDRD) Non-Af 8 mL/min (>60) L 11/20/23 05:47 BUN/Creatinine Ratio 14.6 RATIO (10-20) 11/20/23 05:47 Glucose 137 mg/dL (74-106) H 11/20/23 05:47 Random Vancomycin 16.2 ug/mL (0.0-15.0) H 11/20/23 05:47 Microbiology Microbiology: Microbiology 11/19/23 20:39 Urine, Random Legionella Antigen - Final 11/19/23 20:39 Urine, Random Streptococcus pneumoniae Antigen (M - Final 11/18/23 17:20 Mucosa - Nasopharyngeal Respiratory Panel (PCR) - Final 11/18/23 17:20 Mucosa - Nasopharyngeal SARS-CoV-2, Influenza & RSV (PCR) - Final Pharmacy Plan for Drug Dosing Pharmacy Plan for Drug Dosing: VANCOMYCIN LEVEL RECEIVED Current Vancomycin Dose: 1750MG X1 Number of Doses Received: 1 Vancomycin Level: 16.2 MG/DL Hours Since Last Dose: 35 Renal Function: HD () Renal Function Trend: HD Lab/Micro: blood and urine cx pending Vancomycin Plan/Comments: HD patient ( schedule). Received initial dose of 1750mg 11/17 @ 1900, Pt did have HD yesterday. Random level drawn this AM is therapeutic at 16.2 mg/dL (Goal 15-20mg/dL). Per nephrology note,pt supposed to have HD tomorrow, will schedule weight based dose of 750mg x1 after HD tomorrow and get a random/pre-HD level prior to next HD on Thursday 11/23 per policy. Pending Level: 11/24/23 @ 0600 - [facility] Pharmacy Service will continue to monitor and adjust dosing as required.
[2023-11-20 09:32] LABS: Bedside Glucose 123 mg/dL (74-106)
[2023-11-20] MEDS: Aspirin 81 MG TAB.CHEW PO (09:33)
[2023-11-20] MEDS: Carvedilol 6.25 MG Tablet PO ×2 (09:33→22:10)
[2023-11-20] MEDS: Heparin Injection (Vial) 5,000 UNIT/ML VIAL 5000 UNIT SC ×2 (09:33→22:08)
[2023-11-20] MEDS: Insulin Glargine-YFGN 100 UNIT/ML Pen 20 UNIT SC (09:33)
[2023-11-20] MEDS: Furosemide 40 MG Tablet 100 MG PO ×2 (09:34→22:11)
[2023-11-20] MEDS: Azithromycin 250 MG Tablet 500 MG PO (09:35)
[2023-11-20] MEDS: Allopurinol 100 MG Tablet PO (09:35)
[2023-11-20] MEDS: Folic Acid/Vitamin B Comp W-C 1 Capsule 1 CAP PO (09:35)
[2023-11-20] MEDS: Nystatin Powder 15gm Bottle 1 APPLIC TOPICAL ×2 (09:35→22:10)
[2023-11-20] MEDS: guaiFENesin 1,200 MG Tablet 1200 MG PO ×2 (09:35→22:10)
[2023-11-20] MEDS: amLODIPine 10 MG Tablet PO (09:35)
[2023-11-20] MEDS: Piperacil/Tazobactam 3.375 GM in 0.9% Normal Saline (50mL MB+) 50 ML IV ×2 (09:36→22:06)
--- NOTE | 2023-11-20 10:05 | CASEMGMT ---
Addendum entered by Marine Matos 11/20/23 14:11: 1330-Received tc from Stephy, pt sister. She states she would like pt to return home to go back to [facility]. She asks if pt is up ambulating. Made aware pt was ambulating the halls with therapy today. Discussed should pt need oxygen local in network DME companies, Stephy chose [employer] and states pt has had them in the past. She states she does have a pox at home. Stephy denies further questions. Original Note: SAPNA WINN Assessment: Face to Face with pt for initial transition planning/care coordination assessment. SAPNA WINN introduced self and role at [facility], pt voices understanding and consents to assessment. Pt is A&O x4 and answers all questions appropriately at this time. Pt sitting up in chair with oxygen on in no distress yarning. Pt answered questions but states some she does not know the answer to and this SAPNA WINN should call her sister, Stephy. Care providers, pharmacy, and demographics verified/updated. 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 Preferred Pharmacy: [facility] Retail Insurance: [facility] Dual, [employer] Prescription Benefit: yes LNOK: Stephy Roberts, sister; Pedro Luis Davis, brother Living Arrangements: Pt lives with her sister and her sister's old boyfriend in a mobile home with a ramp to enter. Pt reports that her sister supervises her for safety when bathing and dressing but she can do on her own. She states her sister prepares meals. She goes with her sister to get groceries and she is able to do her own laundry with her sister's guidance. Pt also reports she vacuums and mops at home. Pt denies concerns at home but states that her sister helps Juan Jose, her old boyfriend more than her. She states she feels safe at home. Transportation: Pt does not drive. Pt states her sister provides transportation or other men from the house that I go to daily. Reviewed prior note and pt received transportation from [facility] and attended [facility] Mon-Fri. DME:rollator, [employer] with sufficient supply of strips and lancets, shower chair, walker- Pt reports next month she is going to get a new walker. HHC/SNF: Pt states she has had HH in the past but cannot recall the name of the agency. Pt denies hx of SNF stays and became tearful stating she does not want to go to one. Pt states no concerns with going home at time of dc. Pt described her daily routine at [place]. Pt receives therapy, meds and meals. Pt has dialysis in [place] T//Thu and she states it is at 5am. Provided pt with a verbal local in network list of DME companies should she need oxygen, pt states that her sister will need to be contacted for this. TC to sister, June, left requesting returned call. Pt states no further concerns/needs. CM to follow. Advised pt to ask CM if any further question/concerns/needs arise, voices understanding. Pt Goal: Home to return to [employer] daily. Plan: Home, follow therapy and for oxygen needs. Marva ALEJO CM
[2023-11-20 13:11] LABS: Bedside Glucose 247 mg/dL (74-106)
[2023-11-20 17:53] LABS: Bedside Glucose 345 mg/dL (74-106)
--- NOTE | 2023-11-20 18:17 | CON.PCM.CC_ITS ---
HPI Consult Data Date of Consult: 11/20/23 HPI Narrative HPI Narrative: Mrs. Davis is a is a 57 y/o F w/ PMHx: COPD, ESRD on HD TTS, HTN, HLD, Hx CVA, Diabetes mellitus type II, Morbid obesity, CAD, HFpEF, Former tobacco use, Chronic anemia/AOCD who presents to the [facility] as direction admission from [facility] ED 11/18/23 with history of dyspnea, cough, fatigue and malaise persisting for bilateral pneumonia and hypoxia prompting transfer. Patient as been on airvo after she had a an episode of aspiration. Patient was started on vanc and zosyn. Pulmonary has been asked to help with management. [facility] Medical History Acute alteration in mental status Acute renal injury due to circulatory failure Anxiety Atherosclerosis of coronary artery of [place] heart without angina pectoris Bilateral carotid bruits Cardiology follow-up encounter Cardiology follow-up encounter Chronic heart failure with preserved ejection fraction (HFpEF) Community acquired pneumonia COVID-19 (01/20/21) Debility Dependence on renal dialysis Depression Dietary restriction Easy bruising ESRD (end stage renal disease) on dialysis Essential hypertension Former smoker Generalized weakness GERD (gastroesophageal reflux disease) Headache History of cholelithiasis History of edema History of non-ST elevation myocardial infarction (NSTEMI) (01/20/21) History of renal calculi Hx of cardiovascular stress test Hx of echocardiogram Hyperlipidemia Hypoxia Inability to walk Insulin dependent diabetes mellitus Ischemic cerebrovascular accident (CVA) (04/2018) Low iron Malignant hypertension Morbid obesity Non-STEMI (non-ST elevated myocardial infarction) (01/20/21) Respiratory insufficiency TIA (transient ischemic attack) Type 2 diabetes mellitus without complication Wears glasses Home Medications ?Medication ?Instructions ?Recorded ?Last Taken ?Type aspirin 81 mg chewable tablet 81 mg PO DAILY@0800 HEART HE[facility] 07/15/18 04/26/23 History atorvastatin 80 mg tablet 80 mg PO QHS CHOLESTEROL 08/04/18 04/26/23 History torsemide 100 mg tablet 50 mg PO BID diuretic 04/14/19 04/26/23 History melatonin 5 mg tablet 5 mg PO HS PRN Sleep 08/03/20 01/19/21 History carvedilol 12.5 mg tablet 6.25 mg PO BID blood pressure 09/20/20 04/27/23 History acetaminophen 325 mg tablet 650 mg (2 x 325 mg) PO Q6H PRN PRN 10/03/20 Unknown Rx (Tylenol) Pain 1-10 Or Fever #0 tabs amlodipine 10 mg tablet 10 mg PO DAILY blood pressure 01/20/21 04/27/23 History insulin aspart U-100 100 unit/mL 5 unit subcut BID blood sugar 03/21/21 04/26/23 History (3 mL) subcutaneous pen (Novolog FlexPen U-100 Insulin aspart) insulin glargine U-300 conc 300 20 unit subcut BREAKFAST diabetes 03/21/21 04/26/23 History unit/mL (1.5 mL) subcutaneous pen (Toujeo SoloStar U-300 Insulin) gabapentin 300 mg capsule 300 mg PO TID PRN NEUROPATHY 12/10/22 Unknown History allopurinol 100 mg tablet 100 mg PO DAILY 01/13/23 04/26/23 History cholecalciferol (vitamin D3) 50 50 mcg PO DAILY 01/13/23 04/26/23 History mcg (2,000 unit) capsule ezetimibe 10 mg tablet 10 mg PO QHS 01/13/23 04/26/23 History hydralazine 100 mg tablet 100 mg PO TID 01/13/23 Unknown History vitamin B complex and vitamin C 1 cap PO DAILY 01/13/23 04/26/23 History no.20-folic acid 1 mg capsule ([place] Caps) vitamin B complex-vitamin C-folic 1 tab PO DAILY 01/13/23 04/26/23 History acid 0.8 mg tablet (Nephro-Todd) Allergy/AdvReac Type Severity Reaction Status Date / Time No Known Allergies Allergy Verified 07/01/23 14:58 Family History Mother Diabetes Heart disease Hypertension Father Hypertension Heart disease Brother Heart disease Hypertension Sister Heart disease Diabetes Surgical History History of appendectomy History of arteriovenostomy for renal dialysis (~03/2021) History of History of cholecystectomy History of coronary artery stent placement (06/2016) History of left heart catheterization (05/27/21) History of surgery Social History Smoking Status: Former smoker alcohol intake: never ROS Review of Systems ROS Unobtainable: other Objective Data Objective Data Vital Signs: Vital Signs Last response 3 Temperature 36.8 C 11/20/23 15:00 Temperature Source Oral 11/20/23 15:00 Pulse Rate 78 11/20/23 15:24 Pulse Strength Normal (2+) 11/20/23 10:00 Respiratory Rate 20 H 11/20/23 15:24 Respiratory Effort Normal, Non-Labored 11/20/23 13:30 Respiratory Depth Normal 11/20/23 13:30 Respiratory Pattern Normal 11/20/23 15:24 Blood Pressure 139/63 H 11/20/23 15:00 Blood Pressure Mean 88 11/20/23 15:00 Blood Pressure Source Monitor 11/20/23 15:00 Blood Pressure Position Sitting 11/20/23 15:00 Blood Pressure Location Left Arm 11/20/23 15:00 Pulse Ox 99 11/20/23 15:00 Oxygen Delivery Method Nasal Cannula 11/20/23 15:00 Oxygen Flow Rate (L/min) 2 11/20/23 15:00 Fraction of Inspired Oxygen (FIO2) 35 11/19/23 22:16 I&O: I&O Last 24 Hours 3 11/19/23 11/20/23 11/20/23 23:59 11:59 23:59 Intake Total 510 / 710 170 / 1220 1050 / 1220 Output Total 2900 / 2960 60 / 60 Balance -2390 / -2250 110 / 1160 1050 / 1160 I&O: Total Stay 3 11/18/23 thru 11/20/23 18:00 Intake Total 2405 Output Total 2960 Balance -555 Current Meds Ordered / Administered: Current meds ordered / Administered 3 Generic Name Dose Route Start Last Admin Trade Name Freq PRN Reason Stop Dose Admin Albuterol/Ipratropium 3 ml 11/18/23 17:49 11/20/23 15:24 Ipratropium/Albuterol Sulfate 3 Ml Ampul.Neb INHALATION 3 ml Q4H.RT LIZZETH Administration Allopurinol 100 mg 11/20/23 10:00 11/20/23 09:35 Allopurinol 100 Mg Tablet PO 100 mg DAILY LIZZETH Administration Amlodipine Besylate 10 mg 11/20/23 10:00 11/20/23 09:35 Amlodipine 10 Mg Tablet PO 10 mg DAILY LIZZETH Administration Protocol Aspirin 81 mg 11/20/23 08:00 11/20/23 09:33 Aspirin 81 Mg Tab.Chew PO 81 mg DAILY@0800 LIZZETH Administration Atorvastatin Calcium 80 mg 11/19/23 22:00 11/19/23 22:25 Atorvastatin Calcium 80 Mg Tablet PO 80 mg QHS LIZZETH Administration Azithromycin 500 mg 11/19/23 10:00 11/20/23 09:35 Azithromycin 250 Mg Tablet PO 11/23/23 10:01 500 mg Q24 LIZZETH Administration Carvedilol 6.25 mg 11/19/23 22:00 11/20/23 09:33 Carvedilol 6.25 Mg Tablet PO 6.25 mg BID LIZZETH Administration Protocol Ezetimibe 10 mg 11/19/23 22:00 11/19/23 22:26 Ezetimibe 10 Mg Tablet PO 10 mg QHS LIZZETH Administration Furosemide 100 mg 11/19/23 22:00 11/20/23 09:34 Furosemide 40 Mg Tablet PO 100 mg BID LIZZETH Administration Gabapentin 300 mg 11/19/23 16:40 Gabapentin 300 Mg Capsule PO TID PRN NEUROPATHY Guaifenesin 1,200 mg 11/18/23 22:00 11/20/23 09:35 Guaifenesin 1,200 Mg Tablet PO 1,200 mg BID LIZZETH Administration Heparin Sodium (Porcine) 5,000 unit 11/18/23 22:00 11/20/23 09:33 Heparin Injection (Vial) 5,000 Unit/Ml Vial SC 5,000 unit Q12 LIZZETH Administration Hydralazine HCl 100 mg 11/19/23 22:00 11/20/23 14:26 Hydralazine 50 Mg Tablet PO 100 mg TID LIZZETH Administration Vancomycin IV-PHARMACY TO DOSE 500 mls @ 250 mls/hr 11/18/23 17:49 1 each/ Sodium Chloride IV PRN PRN PHARMACY TO DOSE Protocol Sodium Chloride 250 mls @ 15 mls/hr 11/18/23 17:51 IV .[id number] PRN Additional IVPB Infusion Sodium Chloride 250 mls @ 15 mls/hr 11/18/23 17:51 IV .[id number] PRN Saline Flush Piperacillin Sod/Tazobactam 50 mls @ 12.5 mls/hr 11/18/23 22:00 11/20/23 16:49 Sod 3.375 gm/ Sodium Chloride IV Infused Q12 LIZZETH Infusion Vancomycin HCl 750 mg/ Sodium 265 mls @ 250 mls/hr 11/21/23 13:00 Chloride IV 11/21/23 14:03 X1 ONE Insulin Glargine 20 unit 11/20/23 08:00 11/20/23 09:33 Insulin Glargine-Yfgn 100 Unit/Ml Pen SC 20 unit BREAKFAST LIZZETH Administration Insulin Human Lispro 0 unit 11/19/23 00:00 11/20/23 17:31 Insulin Lispro 100 Unit/Ml Insuln.Pen SC 8 u Q6 LIZZETH Administration Protocol Insulin Human Lispro 5 unit 11/20/23 07:00 11/20/23 17:31 Insulin Lispro 100 Unit/Ml Insuln.Pen SC 5 u BIDAC LIZZETH Administration Methylprednisolone 40 mg 11/18/23 17:49 11/20/23 14:27 Methylprednisolone 40 Mg/Ml Vial IV 40 mg Q8 LIZZETH Administration Multivit/Ca Carb/B Cmplx/FA/Prenat 1 cap 11/20/23 10:00 11/20/23 09:35 Folic Acid/Vitamin B Comp W-C 1 Capsule PO 1 cap DAILY LIZZETH Administration Nystatin 1 applic 11/20/23 10:00 11/20/23 09:35 Nystatin Powder 15gm Bottle TOPICAL 1 applic BID LIZZETH Administration Protocol Ondansetron HCl 4 mg 11/18/23 20:30 11/20/23 14:27 Ondansetron 4 Mg/2 Ml Vial IV Not Given Q6H [facility] Sodium Chloride 10 - 40 ml 11/18/23 17:12 11/20/23 06:09 0.9% Saline Lock 10 Ml Syringe IV 10 ml UD PRN Administration SALINE FLUSH Vancomycin Protocol 1 lab 11/24/23 04:00 Vancomycin Trough/Random Due 11/24/23 08:00 DAILY [facility] Physical Exam Const alert General Appearance: cooperative Orientation / Consciousness: awake HEENT Head and Scalp: normal to inspection Eyes PERRL Neck General: normal visual inspection Resp normal respiratory effort Auscultation: clear to auscultation bilaterally GI normal to inspection, nondistended, normoactive bowel sounds Extremity normal to inspection Lab / Micro Data 11/20/23 05:47 11/20/23 05:47 Labs: Laboratory Results - last 24 hr 11/19/23 20:39: Urine Color Yellow, Urine Clarity Sl. Cloudy, Urine pH 6.0, Ur Specific Marshall 1.020, Urine Protein 500 H, Urine Glucose (UA) 100 H, Urine Ketones Negative, Urine Occult Blood 150 H, Urine Nitrite Positive H, Urine Bilirubin Negative, Urine Urobilinogen Normal, Ur Leukocyte Esterase 100 H, Urine RBC 5-10 SEEN, Urine WBC 10-25 SEEN, Ur Squamous Epith Cells 5-10 SEEN, Urine Bacteria 1+, Urine Mucus 0 SEEN 11/19/23 23:59: POC Glucose > 500 H* 11/20/23 01:45: POC Glucose 474 H* 11/20/23 03:32: POC Glucose 311 H 11/20/23 05:47: WBC 15.9 H, RBC 3.08 L, Hgb 9.6 L, Hct 29.1 L, MCV 94.5, MCH 31.2, MCHC 33.0 D, RDW Std Deviation 52.5 H, RDW Coeff of [place] 15.2 H, Plt Count 165, MPV 12.6 H, Immature Gran % (Auto) 1.100 H, Neut % (Auto) 91.6 H, Lymph % (Auto) 2.8 L, Saline % (Auto) 4.4, Eos % (Auto) 0.0, Baso % (Auto) 0.1, Absolute Neuts (auto) 14.5 H, Absolute Lymphs (auto) 0.45 L, Nucleated RBC % 0, Sodium 137, Potassium 5.2 H, Chloride 102, Carbon Dioxide 27.0, Anion Gap 8, BUN 88 H, Creatinine 6.02 H, Estim Creat Clear Calc 11.96, Est GFR (MDRD) Af Amer 9 L, Est GFR (MDRD) Non-Af 8 L, BUN/Creatinine Ratio 14.6, Glucose 137 H, Calcium 8.5, Total Bilirubin 0.80, AST 26, ALT 23, Alkaline Phosphatase 66, Total Protein 6.5, Albumin 2.9 L, Globulin 3.6, Albumin/Globulin Ratio 0.8 L, Random Vancomycin 16.2 H 11/20/23 06:06: POC Glucose 129 H 11/20/23 09:13: POC Glucose 123 H 11/20/23 12:49: POC Glucose 247 H 11/20/23 17:28: POC Glucose 345 H Micro: Microbiology 11/20/23 13:35 Nasal Secretion MRSA (PCR) - Final 11/19/23 20:39 Urine, Random Legionella Antigen - Final 11/19/23 20:39 Urine, Random Streptococcus pneumoniae Antigen (M - Final Assessment and Plan . Assessment and plan: Acute hypoxic respiratory failure Bilateral pulmonary opacities Suspected aspriation - cont with abx - patient had aspiration episode and can consider MBBS if she has recurrent pneumonia - advised patient to try IS and flutter valve CPT - patient appears to have impaired working memory - needs 6 minute walk prior to discharge Critical Care Time: 60 The entirety of this encounter was done via Telemedicine
[2023-11-20] MEDS: Atorvastatin Calcium 80 MG Tablet PO (22:09)
[2023-11-20] MEDS: Ezetimibe 10 MG Tablet PO (22:10)
[2023-11-20 22:35] LABS: Bedside Glucose 442 mg/dL (74-106)
[2023-11-21] VITALS (16 sets, daily range): BP systolic 90–283; BP diastolic 51–92; PULSE 67–81; RESP 14–20; TEMP 36.5–36.7; O2SAT 86–100; BMI 44.0; BMI 42.8
[2023-11-21] MEDS: 0.9% Saline Lock 10 ML Syringe IV (00:07)
[2023-11-21] MEDS: Insulin Lispro 100 UNIT/ML INSULN.PEN SC ×4 (00:07→11:18)
[2023-11-21 00:37] LABS: Bedside Glucose 366 mg/dL (74-106)
[2023-11-21 05:10] LABS: Absolute Lymphocyte Count 0.42 X10^3/uL (0.83-4.51); Absolute Neutrophil Count 13.2 X10^3/uL (2.0-7.7); Basophil# 0.02 X10^3/uL; Basophil% 0.1 % (0-1); Eosinophil# 0.01 X10^3/uL; Eosinophils% 0.1 % (0-5); Hematocrit 27.4 % (37-47); Hemoglobin 8.9 g/dL (12.0-15.0); Lymphocyte # 0.42 X10^3/ul (0.83-4.51); Lymphocyte % 2.9 % (19-41); Mean Corp Hgb Conc 32.5 g/dL (32-36); Mean Corpuscular Volume 95.5 fL (81-99); Mean Platelet Vol. 13.5 fl (6.2-12.0); Monocyte# 0.33 X10^3/uL; Monocyte% 2.3 % (0-10); NRBC Flagged by Analyzer 0 % (0-5); Neutrophil # 13.22 X10^3/uL (2.7-7.7); Neutrophil % 92.2 % (47-70); POSITIVE DIFFERENTIAL YES; Platelet Count 165 K/mm3 (150-450); RBC Distribution Width CV 15.2 % (11.6-14.6); RBC Distribution Width SD 52.8 fl (35.1-43.9); Red Blood Count 2.87 M/mm3 (4.2-5.4); White Blood Count 14.3 K/mm3 (4.4-11.0)
[2023-11-21 05:32] LABS: ALB/GLOB Ratio 0.9 RATIO (0.9-2.4); AST(SGOT) 31 U/L (15-37); Alanine Aminotransfer ALT/SGPT 32 U/L (13-56); Albumin, Serum 2.9 g/dL (3.2-5.0); Alkaline Phosphatase 56 U/L (45-117); Anion Gap 14 (5-15); BUN 118 mg/dL (7-18); BUN/Creat Ratio 16.6 RATIO (10-20); Calcium,Total 7.6 mg/dL (8.5-10.1); Chloride 97 mmol/L (98-107); EST Glomerular Filtration Rate 6 mL/min (>60); Est Glom Filt Rate - Afr Amer 8 mL/min (>60); Estimated Creatinine Clearance 10.14 ml/min; Globulin 3.4 g/dL (2.2-4.2); Glucose 355 mg/dL (74-106); Potassium 5.5 mmol/L (3.5-5.1); Protein, Total 6.3 g/dL (6.4-8.2); Sodium Level 131 mmol/L (136-145)
[2023-11-21] MEDS: Ipratropium/Albuterol Sulfate 3 ML AMPUL.NEB INHALATION ×2 (06:49→11:22)
--- NOTE | 2023-11-21 06:55 | PN.HOSP_ITS ---
Reason for Visit Reason for Visit: Diagnoses Pneumonia, unspecified organism (11/18/23) Acute respiratory failure with hypoxia (11/18/23) Objective Data Objective Data Vital Signs: Vital Signs Temp Pulse Resp BP Pulse Ox O2 Del Method O2 Flow Rate 98.0 F 69 18 136/66 H 97 Nasal Cannula 2 11/21/23 03:50 11/21/23 03:50 11/21/23 03:50 11/21/23 03:50 11/21/23 03:50 11/21/23 03:50 11/21/23 03:50 FiO2 35 11/19/23 22:16 Oxygen Flow Rate (L/min) 2 Oxygen Delivery Method Nasal Cannula Weight: 239 lb 6.752 oz Body Mass Index (BMI) 43.7 Intake & Output: Intake and Output for Last 24 Hours 11/19/23 11/20/23 11/21/23 23:59 23:59 23:59 Intake Total 590 / 710 1220 / 1470 300 / 300 Output Total 2900 / 2960 60 / 60 Balance -2310 / -2250 1160 / 1410 300 / 300 Lab / Micro Data 11/21/23 04:30 11/21/23 04:30 Labs: Laboratory Results - last 24 hr 11/20/23 09:13: POC Glucose 123 H 11/20/23 12:49: POC Glucose 247 H 11/20/23 17:28: POC Glucose 345 H 11/20/23 22:04: POC Glucose 442 H 11/21/23 00:06: POC Glucose 366 H 11/21/23 04:30: WBC 14.3 H, RBC 2.87 L, Hgb 8.9 L, Hct 27.4 L, MCV 95.5, MCH 31.0, MCHC 32.5, RDW Std Deviation 52.8 H, RDW Coeff of [place] 15.2 H, Plt Count 165, MPV 13.5 H, Immature Gran % (Auto) 2.400 H, Neut % (Auto) 92.2 H, Lymph % (Auto) 2.9 L, [place] % (Auto) 2.3, Eos % (Auto) 0.1, Baso % (Auto) 0.1, Absolute Neuts (auto) 13.2 H, Absolute Lymphs (auto) 0.42 L, Nucleated RBC % 0, Sodium 131 L, Potassium 5.5 H, Chloride 97 L, Carbon Dioxide 20.0 L, Anion Gap 14, BUN 118 H*, Creatinine 7.10 H, Estim Creat Clear Calc 10.14, Est GFR (MDRD) Af Amer 8 L, Est GFR (MDRD) Non-Af 6 L, BUN/Creatinine Ratio 16.6, Glucose 355 H, C alcium 7.6 L, Total Bilirubin 0.70, AST 31, ALT 32, Alkaline Phosphatase 56, T otal Protein 6.3 L, Albumin 2.9 L, Globulin 3.4, Albumin/Globulin Ratio 0.9 Micro: Microbiology 11/20/23 13:35 Nasal Secretion MRSA (PCR) - Final 11/18/23 19:09 Blood Culture (Wb) - Left Hand Blood Culture - Preliminary No growth in 48 hours. 11/19/23 20:39 Urine, Random Legionella Antigen - Final 11/19/23 20:39 Urine, Random Streptococcus pneumoniae Antigen (M - Final 11/18/23 17:20 Mucosa - Nasopharyngeal Respiratory Panel (PCR) - Final 11/18/23 17:20 Mucosa - Nasopharyngeal SARS-CoV-2, Influenza & RSV (PCR) - Final Physical Exam Narrative Physical Examination: General: Awake, alert, oriented x 3 and cooperative, seated upright in the PCU bedside chair, improved appearance, no evidence of any distress. Skin: Normal color, normal turgor, no icterus, no cyanosis except occasional staged ecchymoses. HEENT: AT/NC, EOMI, PERRLA, MMM, transition to nasal cannula. Lungs: Significantly diminished, greater bases, improved effort from previous description, no current appreciated rales, rhonchi or wheezing, rate and effort appropriate. Heart: Regular rate and rhythm; no gallop, rub audible. Abdomen: Soft, morbidly obese, NTTP, distant BS, difficult appreciate distention given habitus. Extremities: No cyanosis, no clubbing, bilateral lower extremity distal mild not markedly pitting. Neurological: Patient awake, alert, oriented as noted, cognitive function intact; pupils equally reactive to light and accommodation, cranial nerves grossly normal, moving all 4 extremities, no focal deficits, strength improved, moderately globally decreased. Psychiatric: Affect appears less fatigued, more interactive although is emotionally labile when we discuss her sister as she feels as though she was being yelled at for not doing physical therapy or ambulating the day prior but we discussed that this was not something we encouraged given Airvo with still ongoing, no acute evidence of depressive or anxiety feelings. Assessment & Plan Assessment/Plan (1) Acute hypoxemic respiratory failure: (2) Bilateral pneumonia: PLAN: Plan The patient is a 57 y/o F w/ PMHx: COPD, ESRD on HD TTS, HTN, HLD, Hx CVA, Diabetes mellitus type II, Morbid obesity, CAD, HFpEF, Former tobacco use, Chronic anemia/AOCD who presents to the [facility] as direction admission from [facility] ED 11/18/23 with history of dyspnea, cough, fatigue and malaise persisting for 2 days prompting outside facility evaluation with concern for bilateral pneumonia and hypoxia prompting transfer. #1. Acute hypoxic respiratory failure secondary to acute bilateral pneumonia, possible gram-negative/gram-positive organisms with concern for concurrent acute on chronic COPD exacerbation: Upon presentation patient with concern, ABG obtained and placed on BiPAP at that time, eventually refused BiPAP and unfortunately transition to Airvo, early presentation coughing fit following eating with concern for aspiration however clinically improved following this, full respiratory viral panel negative, urine antigens negative, 11/20/2023 weaned off of Airvo to nasal cannula, maintain on IV vancomycin and IV Zosyn with pending MRSA screen with de-escalation off aggressive BSA antibiotics as able, maintained on IV Solu-Medrol therapy, sputum culture ordered, blood culture ordered and pending, continued with dialysis as noted. #2. Pleuritic chest pain, suspected secondary to #1: Given prior NSTEMI and previous PCI maintain on telemetry, cardiac enzymes cycled which were unremarkable, EKG with no acute cardiopulmonary findings. #3. ESRD: Patient with ongoing hemodialysis Thursday, , Thursday, nephrology Dr. Granger consulted, dialysis 11/19/2023, noted Access AV right upper extremity. #4. History CVA with associated vascular dementia: Previous CVA 2019 with associated vascular mention, complicates course, continue aspirin, continue hypertensive regimen as BP allows, continue statin therapy, continue insulin/diabetic regimen. #5. CAD: Status post PCI, continue patient home aspirin, statin, Coreg, not on TAYLOR/ARB. #6. HFpEF: 07/02/2022 echocardiogram with LV systolic function normal, normal LV size, EF 65%, mild concentric LVH, PASP 40 mmHg. Will continue patient home aspirin, statin, Coreg, hydralazine, torsemide home regimen. #7. Hypertension: Continue home regimen including amlodipine, Coreg, hydralazine, torsemide with hold parameters as needed, PRN hydralazine. #8. Hyperlipidemia: Can patient on statin, ezetimibe home therapy. #9. Diabetes mellitus type II with chronic neuropathy: Hold oral home regimen, continue home insulin regimen, ADA diet, accu checks w/ ISS. Additionally we will continue patient home gabapentin as needed regimen. #10. Gout: We will continue patient on allopurinol regimen. #11. DVT prophylaxis: Heparin #12. CODE STATUS: Full Code.
[2023-11-21 07:02] LABS: Bedside Glucose 314 mg/dL (74-106)
[2023-11-21] MEDS: 0.9% Normal Saline 1,000 ML IV.SOLN. 1000 ML OPERA.SITE (07:49)
[2023-11-21] MEDS: PureFlow B 2K Dialysis Soln 1 BAG 6 BAG PF (07:49)
--- NOTE | 2023-11-21 08:50 | NURSING ---
advised in report @ approx. 1900 on 11/20/2023 that pt.'s sister stated that she would not be bringing numbing cream in for pt.'s hemodialysis tx. on 11/21/23. Pt. became very upset this morning (11/21/23) , stating that that man said he was going to bring in my cream.Pt. was unable to identify the man that she was referring to. I advised pt. that i was told that her sister was not able to bring it in. Pt. began yelling, saying i'm calling my sister and i'm getting the fuck out of here! i'm tired of this shit! I apologized to pt. and stated that i did not believe that we had that medication in stock, but that i could call pharmacy and see if we did. she stated forget it, i am getting the fuck out of here! and pt. began to cry and call someone on her personal cell phone and seemed to ignore my presence in the room. I made sure that the pt. was safe and that O[facility]HY[employer]OG[facility] WELDER felt comfortable with the pt., to which she stated Yes and exited the room.
--- NOTE | 2023-11-21 09:32 | CPS ---
patient finished about 1/2 treatment prior to refusal.
--- NOTE | 2023-11-21 09:33 | CPS ---
rt attempted to wean patient to room air. Patient stated that she couldnt breath on room air. patient placed back on 2 lpm with symptoms of sob resolved.
[2023-11-21] MEDS: Azithromycin 250 MG Tablet 500 MG PO (11:12)
[2023-11-21] MEDS: Furosemide 40 MG Tablet 100 MG PO (11:12)
[2023-11-21] MEDS: Carvedilol 6.25 MG Tablet PO (11:12)
[2023-11-21] MEDS: Folic Acid/Vitamin B Comp W-C 1 Capsule 1 CAP PO (11:13)
[2023-11-21] MEDS: guaiFENesin 1,200 MG Tablet 1200 MG PO (11:13)
[2023-11-21] MEDS: Aspirin 81 MG TAB.CHEW PO (11:13)
[2023-11-21] MEDS: amLODIPine 10 MG Tablet PO (11:13)
[2023-11-21] MEDS: Allopurinol 100 MG Tablet PO (11:14)
[2023-11-21] MEDS: Insulin Glargine-YFGN 100 UNIT/ML Pen 20 UNIT SC (11:18)
[2023-11-21] MEDS: Nystatin Powder 15gm Bottle 1 APPLIC TOPICAL (11:19)
[2023-11-21] MEDS: Heparin Injection (Vial) 5,000 UNIT/ML VIAL 5000 UNIT SC (11:19)
[2023-11-21] MEDS: Piperacil/Tazobactam 3.375 GM in 0.9% Normal Saline (50mL MB+) 50 ML IV (11:26)
--- NOTE | 2023-11-21 11:33 | PCM.PN.TICU ---
Objective Data Objective Data Vital Signs: Vital Signs Last response Temperature 36.6 C 11/21/23 11:06 Temperature Source Oral 11/21/23 11:06 Pulse Rate 81 11/21/23 11:06 Pulse Strength Normal (2+) 11/20/23 22:00 Respiratory Rate 18 11/21/23 11:06 Respiratory Effort Normal, Non-Labored 11/21/23 11:03 Respiratory Depth Normal 11/21/23 11:03 Respiratory Pattern Normal 11/21/23 11:03 Blood Pressure 157/92 H 11/21/23 11:06 Blood Pressure Mean 113 11/21/23 11:06 Blood Pressure Source Monitor 11/21/23 11:06 Blood Pressure Position Sitting 11/21/23 11:06 Blood Pressure Location Left Arm 11/21/23 11:06 Pulse Ox 86 11/21/23 11:10 Oxygen Delivery Method Nasal Cannula 11/21/23 11:06 Oxygen Flow Rate (L/min) 2 11/21/23 11:06 Fraction of Inspired Oxygen (FIO2) 35 11/19/23 22:16 I&O: I&O Last 24 Hours 11/20/23 11/20/23 11/21/23 11:59 23:59 11:59 Intake Total 170 / 1470 1050 / 1470 500 / 500 Output Total 60 / 60 3000 / 3000 Balance 110 / 1410 1050 / 1410 -2500 / -2500 I&O: Total Stay 11/18/23 thru 11/21/23 11:03 Intake Total 2905 Output Total 5960 Balance -3055 Current Meds Ordered / Administered: Current meds ordered / Administered Generic Name Dose Route Start Last Admin Trade Name Navraro PRN Reason Stop Dose Admin Albuterol/Ipratropium 3 ml 11/18/23 17:49 11/21/23 11:22 Ipratropium/Albuterol Sulfate 3 Ml Ampul.Neb INHALATION 3 ml Q4H.RT LIZZETH Administration Allopurinol 100 mg 11/20/23 10:00 11/21/23 11:14 Allopurinol 100 Mg Tablet PO 100 mg DAILY LIZZETH Administration Amlodipine Besylate 10 mg 11/20/23 10:00 11/21/23 11:13 Amlodipine 10 Mg Tablet PO 10 mg DAILY LIZZETH Administration Protocol Aspirin 81 mg 11/20/23 08:00 11/21/23 11:13 Aspirin 81 Mg Tab.Chew PO 81 mg DAILY@0800 LIZZETH Administration Atorvastatin Calcium 80 mg 11/19/23 22:00 11/20/23 22:09 Atorvastatin Calcium 80 Mg Tablet PO 80 mg QHS LIZZETH Administration Azithromycin 500 mg 11/19/23 10:00 11/21/23 11:12 Azithromycin 250 Mg Tablet PO 11/23/23 10:01 500 mg Q24 LIZZETH Administration Carvedilol 6.25 mg 11/19/23 22:00 11/21/23 11:12 Carvedilol 6.25 Mg Tablet PO 6.25 mg BID LIZZETH Administration Protocol Ezetimibe 10 mg 11/19/23 22:00 11/20/23 22:10 Ezetimibe 10 Mg Tablet PO 10 mg QHS [facility] Administration Furosemide 100 mg 11/19/23 22:00 11/21/23 11:12 Furosemide 40 Mg Tablet PO 100 mg BID LIZZETH Administration Gabapentin 300 mg 11/19/23 16:40 Gabapentin 300 Mg Capsule PO TID PRN NEUROPATHY Guaifenesin 1,200 mg 11/18/23 22:00 11/21/23 11:13 Guaifenesin 1,200 Mg Tablet PO 1,200 mg BID LIZZETH Administration Hemodialysis Solution 6 bag 11/21/23 07:00 11/21/23 07:49 Pureflow B 2k Dialysis Soln 1 Bag PF 11/21/23 18:47 6 bag UD [facility] Administration Protocol Heparin Sodium (Porcine) 5,000 unit 11/18/23 22:00 11/21/23 11:19 Heparin Injection (Vial) 5,000 Unit/Ml Vial SC 5,000 unit Q12 LIZZETH Administration Hydralazine HCl 100 mg 11/19/23 22:00 11/21/23 07:26 Hydralazine 50 Mg Tablet PO Not Given TID [facility] Sodium Chloride 250 mls @ 15 mls/hr 11/18/23 17:51 IV .[id number] PRN Additional IVPB Infusion Sodium Chloride 250 mls @ 15 mls/hr 11/18/23 17:51 IV .[id number] PRN Saline Flush Piperacillin Sod/Tazobactam 50 mls @ 12.5 mls/hr 11/18/23 22:00 11/21/23 11:26 Sod 3.375 gm/ Sodium Chloride IV 12.5 mls/hr Q12 LIZZETH Administration Insulin Glargine 20 unit 11/20/23 08:00 11/21/23 11:18 Insulin Glargine-Yfgn 100 Unit/Ml Pen SC 20 unit BREAKFAST LIZZETH Administration Insulin Human Lispro 0 unit 11/19/23 00:00 11/21/23 11:18 Insulin Lispro 100 Unit/Ml Insuln.Pen SC 6 u Q6 LIZZETH Administration Protocol Insulin Human Lispro 5 unit 11/20/23 07:00 11/21/23 11:18 Insulin Lispro 100 Unit/Ml Insuln.Pen SC 5 u BIDAC LIZZETH Administration Methylprednisolone 40 mg 11/18/23 17:49 11/21/23 06:38 Methylprednisolone 40 Mg/Ml Vial IV 40 mg Q8 LIZZETH Administration Multivit/Ca Carb/B Cmplx/FA/Prenat 1 cap 11/20/23 10:00 11/21/23 11:13 Folic Acid/Vitamin B Comp W-C 1 Capsule PO 1 cap DAILY LIZZETH Administration Nystatin 1 applic 11/20/23 10:00 11/21/23 11:19 Nystatin Powder 15gm Bottle TOPICAL 1 applic BID LIZZETH Administration Protocol Ondansetron HCl 4 mg 11/18/23 20:30 11/21/23 11:11 Ondansetron 4 Mg/2 Ml Vial IV Not Given Q6H LIZZETH Sodium Chloride 10 - 40 ml 11/18/23 17:12 11/21/23 00:07 0.9% Saline Lock 10 Ml Syringe IV 10 ml UD PRN Administration SALINE FLUSH Sodium Chloride 1,000 ml 11/21/23 06:50 11/21/23 07:49 0.9% Normal Saline 1,000 Ml Iv.Soln. OPERA.SITE 11/21/23 18:47 1,000 ml X1 LIZZETH Administration Sodium Chloride 200 ml 11/21/23 06:47 0.9% Normal Saline 1,000 Ml Iv.Soln. IV 11/21/23 18:47 X1 PRN to maintain SBP >90mmHg during Dialysis Lab / Micro Data 11/21/23 04:30 11/21/23 04:30 Labs: Laboratory Results - last 24 hr 11/20/23 12:49: POC Glucose 247 H 11/20/23 17:28: POC Glucose 345 H 11/20/23 22:04: POC Glucose 442 H 11/21/23 00:06: POC Glucose 366 H 11/21/23 04:30: WBC 14.3 H, RBC 2.87 L, Hgb 8.9 L, Hct 27.4 L, MCV 95.5, MCH 31.0, MCHC 32.5, RDW Std Deviation 52.8 H, RDW Coeff of Chichi 15.2 H, Plt Count 165, MPV 13.5 H, Immature Gran % (Auto) 2.400 H, Neut % (Auto) 92.2 H, Lymph % (Auto) 2.9 L, Avery % (Auto) 2.3, Eos % (Auto) 0.1, Baso % (Auto) 0.1, Absolute Neuts (auto) 13.2 H, Absolute Lymphs (auto) 0.42 L, Nucleated RBC % 0, Sodium 131 L, Potassium 5.5 H, Chloride 97 L, Carbon Dioxide 20.0 L, Anion Gap 14, BUN 118 H*, Creatinine 7.10 H, Estim Creat Clear Calc 10.14, Est GFR (MDRD) Af Amer 8 L, Est GFR (MDRD) Non-Af 6 L, BUN/Creatinine Ratio 16.6, Glucose 355 H, Calcium 7.6 L, Total Bilirubin 0.70, AST 31, ALT 32, Alkaline Phosphatase 56, Total Protein 6.3 L, Albumin 2.9 L, Globulin 3.4, Albumin/Globulin Ratio 0.9 11/21/23 06:42: POC Glucose 314 H Micro: Microbiology 11/20/23 13:35 Nasal Secretion MRSA (PCR) - Final 11/18/23 19:09 Blood Culture (Wb) - Left Hand Blood Culture - Preliminary No growth in 48 hours. Assessment and Plan . Assessment and plan: placed in error Subjective Subjective placed in error
[2023-11-21 11:39] LABS: Bedside Glucose 272 mg/dL (74-106)
--- NOTE | 2023-11-21 12:06 | DS.PCM_ITS ---
Providers Date of Admission: 11/18/23 Date of Discharge: 11/21/23 Primary Care Physician: TERESA Mas Consultations 11/18/23 17:36 Consult: Electrician Control Equipment / Pulmonary Medicine Routine Consulting Provider: Intensivists/Pulmonary Med Reason for Consult: ACUTE Hypoxic resp failure EMERGENT Consult: No Notified: Yes Date Notified: 11/18/23 Time Notified: 17:36 Method of Notification: Verbal 11/18/23 17:50 Consult: Nephrology Routine Consulting Provider: Shannan Rooney Reason for Consult: ESRD on HD EMERGENT Consult: No Notified: Yes Date Notified: 11/18/23 Time Notified: 17:50 Method of Notification: Verbal Reason For Visit: COMMUNITY-ACQUIRED PNEUMONIA Diagnosis Discharge Diagnosis (1) Acute hypoxemic respiratory failure: Status: Acute Code(s): J96.01 - Acute respiratory failure with hypoxia (2) Bilateral pneumonia: Status: Acute Code(s): J18.9 - Pneumonia, unspecified organism Plan: DISCHARGE DIAGNOSIS: #1. Acute hypoxic respiratory failure secondary to acute bilateral pneumonia, possible gram-negative/gram-positive organisms with concern for concurrent acute on chronic COPD exacerbation, unclear exact organism #2. Pleuritic chest pain, suspected secondary to #1 #3. ESRD w/ HD Thursday, , Thursday (Nephrology Dr. Granger group) #4. History CVA with associated vascular dementia #5. CAD, Status post PCI #6. HFpEF #7. Hypertension #8. Hyperlipidemia #9. Diabetes mellitus type II with chronic neuropathy #10. Gout #11. CODE STATUS: Full Code (3) COPD exacerbation: Status: Chronic Code(s): J44.1 - Chronic obstructive pulmonary disease with (acute) exacerbation Medications at Discharge Home Medications aspirin 81 mg chewable tablet 81 mg PO DAILY@0800 [facility] 07/15/18 atorvastatin 80 mg tablet 80 mg PO QHS CHOLESTEROL 08/04/18 torsemide 100 mg tablet 50 mg PO BID diuretic 04/14/19 melatonin 5 mg tablet 5 mg PO HS PRN Sleep 08/03/20 carvedilol 12.5 mg tablet 6.25 mg PO BID blood pressure 09/20/20 acetaminophen 325 mg tablet (Tylenol) 650 mg (2 x 325 mg) PO Q6H PRN PRN Pain 1- 10 Or Fever #0 tabs 10/03/20 amlodipine 10 mg tablet 10 mg PO DAILY blood pressure 01/20/21 insulin aspart U-100 100 unit/mL (3 mL) subcutaneous pen (Novolog FlexPen U-100 Insulin aspart) 5 unit subcut BID blood sugar 03/21/21 insulin glargine U-300 conc 300 unit/mL (1.5 mL) subcutaneous pen (Toujeo SoloStar U-300 Insulin) 20 unit subcut BREAKFAST diabetes 03/21/21 gabapentin 300 mg capsule 300 mg PO TID PRN NEUROPATHY 12/10/22 allopurinol 100 mg tablet 100 mg PO DAILY 01/13/23 cholecalciferol (vitamin D3) 50 mcg (2,000 unit) capsule 50 mcg PO DAILY 01/13/23 ezetimibe 10 mg tablet 10 mg PO QHS 01/13/23 hydralazine 100 mg tablet 100 mg PO TID 01/13/23 vitamin B complex and vitamin C no.20-folic acid 1 mg capsule (Delancey Caps) 1 cap PO DAILY 01/13/23 vitamin B complex-vitamin C-folic acid 0.8 mg tablet (Nephro-Todd) 1 tab PO DAILY 01/13/23 amoxicillin 875 mg-potassium clavulanate 125 mg tablet 1 tab PO BID Pneumonia 5 days #10 tabs 11/21/23 azithromycin 250 mg tablet 500 mg (2 x 250 mg) PO Q24 3 days #6 tabs 11/21/23 guaifenesin 1,200 mg tablet, extended release 12 hr (Mucus Relief ER) 1,200 mg PO BID 14 days #28 tabs 11/21/23 ipratropium 0.5 mg-albuterol 3 mg (2.5 mg base)/3 mL nebulization soln 3 ml inhalation Q8H COPD exacerbation/Pneumonia 14 days #180 mL 11/21/23 nystatin 100,000 unit/gram topical powder (Nyamyc) 1 applic topical BID 14 days #1 BOTTLE 11/21/23 prednisone 10 mg tablet See Taper PO DAILY #30 tabs 11/21/23 Hospital Course Operations None Procedures EKG Summary of Care Provided Minutes Spent on Discharge: 35 Hospital Course: The patient is a 57 y/o F w/ PMHx: COPD, ESRD on HD TTS, HTN, HLD, Hx CVA, Diabetes mellitus type II, Morbid obesity, CAD, HFpEF, Former tobacco use, Chronic anemia/AOCD who presentED to the [facility] as direction admission from [facility] ED 11/18/23 with history of dyspnea, cough, fatigue and malaise persisting for 2 days prompting outside facility evaluation with concern for bilateral pneumonia and hypoxia prompting transfer. Upon presentation patient with respiratory distress concerns, ABG obtained and placed on BiPAP at that time, eventually refused BiPAP and u transitioned to Airvo eventually weaned to nasal cannula. Patient with coughing fit initially upon presentation however she clinically improved as her respiratory distress improved and speech therapy was consulted and evaluated patient with no aspiration or dysphagia concerns allowed then to resume her regular diet. Patient maintained initially on oral azithromycin, IV vancomycin and IV Zosyn. MRSA screen was negative therefore MRSA screen eventually de-escalated off. Patient also maintained on IV Solu-Medrol therapy. Sputum culture not obtained as patient unable to produce sputum. Blood culture x 2 obtained and no growth. Given prior NSTEMI and previous PCI patient maintain on telemetry, cardiac enzymes were cycled and unremarkable, EKG with no acute findings. Patient with ongoing hemodialysis Thursday, , Thursday, nephrology Dr. Granger consulted, dialysis 11/19/2023, noted Access AV right upper extremity. Nephrology consulted for ongoing HD needs w/ last HD on 11/21/23 with reported 3L removal per etl tester. Oxygenation assessment on 11/21/23 prior to discharge with noted oxygenation at rest 87% with improvement to 97% on 2 L nasal cannula and with ambulation patient noted to be 87% just on 1 L but improved to 90% on 2 L nasal cannula thus oxygen set up for discharge 2 L nasal cannula. As noted patient oxygen testing has been reviewed and this patient as noted qualifies for home equipment and portability, mobile in the home and also in the community. Given improvement, clinical stability, patient discharged to home with home healthy with oxygen supplementation as noted, transition to oral steroid taper, transition to oral abx regimen with encouraged early follow-up with PCP and ongoing evaluation with Nephrology for HD needs. DAY OF DISCHARGE PROGRESS NOTE: Subjective: Patient without acute event overnight per self and nursing report. Patient with improved respiratory status, transition to nasal cannula, ambulating with therapies without event. Patient states she would like to be discharged to home with amenability to ongoing home therapies. Patient denies fever, chills, nausea, emesis, abdominal pain, chest pain or dyspnea. Patient will be discharged with follow-up with primary care physician as well as continued outpatient follow-up with nephrology for ongoing dialysis needs. Objective: T97.7, heart rate 74, BP 147/56, respiratory 15, 100% on 2 L nasal cannula. Physical Examination: General: Awake, alert, oriented x 3 and cooperative, seated upright in the PCU bed, requesting discharge to home, dialysis ongoing currently, denies any dyspnea Skin: Normal color, normal turgor, no icterus, no cyanosis except occasional staged ecchymoses. HEENT: AT/NC, EOMI, PERRLA, MMM, nasal cannula [address] Lungs: Improved effort, still diminished at the bases, appropriate respiratory rate, no rales, rhonchi or wheezing. Heart: Regular rate and rhythm; no gallop, rub audible. Abdomen: Soft, morbidly obese, NTTP, distant BS, no obvious distention. Extremities: No cyanosis, no clubbing, bilateral lower extremity distal mild not markedly pitting. Neurological: Patient awake, alert, oriented as noted, cognitive function intact; pupils equally reactive to light and accommodation, cranial nerves grossly normal, moving all 4 extremities, no focal deficits, strength improving, moderately globally decreased. Psychiatric: Affect appears appropriate, intermittently can be emotionally labile but this seems baseline, patient reporting eagerness for discharge to home, underlying history of suspected mood disorder. Assessment and Plan: Please see hospital summary above. Weight / BMI Weight Weight: 232 lb 12.93 oz Body Mass Index (BMI) 42.8 ABG / Lab / Microbiology Data 11/21/23 04:30 11/21/23 04:30 Laboratory: Laboratory Results - last 24 hr 11/20/23 12:49: POC Glucose 247 H 11/20/23 17:28: POC Glucose 345 H 11/20/23 22:04: POC Glucose 442 H 11/21/23 00:06: POC Glucose 366 H 11/21/23 04:30: WBC 14.3 H, RBC 2.87 L, Hgb 8.9 L, Hct 27.4 L, MCV 95.5, MCH 31.0, MCHC 32.5, RDW Std Deviation 52.8 H, RDW Coeff of Chichi 15.2 H, Plt Count 165, MPV 13.5 H, Immature Gran % (Auto) 2.400 H, Neut % (Auto) 92.2 H, Lymph % (Auto) 2.9 L, Stevens % (Auto) 2.3, Eos % (Auto) 0.1, Baso % (Auto) 0.1, Absolute Neuts (auto) 13.2 H, Absolute Lymphs (auto) 0.42 L, Nucleated RBC % 0, Sodium 131 L, Potassium 5.5 H, Chloride 97 L, Carbon Dioxide 20.0 L, Anion Gap 14, BUN 118 H*, Creatinine 7.10 H, Estim Creat Clear Calc 10.14, Est GFR (MDRD) Af Amer 8 L, Est GFR (MDRD) Non-Af 6 L, BUN/Creatinine Ratio 16.6, Glucose 355 H, C alcium 7.6 L, Total Bilirubin 0.70, AST 31, ALT 32, Alkaline Phosphatase 56, T otal Protein 6.3 L, Albumin 2.9 L, Globulin 3.4, Albumin/Globulin Ratio 0.9 11/21/23 06:42: POC Glucose 314 H 11/21/23 11:16: POC Glucose 272 H Microbiology: Microbiology 11/20/23 13:35 Nasal Secretion MRSA (PCR) - Final 11/18/23 19:09 Blood Culture (Wb) - Left Hand Blood Culture - Preliminary No growth in 48 hours. 11/19/23 20:39 Urine, Random Legionella Antigen - Final 11/19/23 20:39 Urine, Random Streptococcus pneumoniae Antigen (M - Final 11/18/23 17:20 Mucosa - Nasopharyngeal Respiratory Panel (PCR) - Final 11/18/23 17:20 Mucosa - Nasopharyngeal SARS-CoV-2, Influenza & RSV (PCR) - Final Meaningful Use Info Meaningful Use Meaningful Use Diagnoses (Choose all that apply): None applicable Ischemic Stroke Statin Dosing Therapy Reference: STATIN DOSE THERAPY REFERENCE: * Patients > 75 years receive moderate or high dose statin therapy. * Patients 75 years or YOUNGER should receive HIGH intensity statin dose unless contraindicated. You will be required to document reason for non-treatment if statin daily dose does not meet guidelines. HIGH DOSE STATIN THERAPY DAILY Atorvastatin > than or = to 40 mg Rosuvastatin > than or = to 20 mg Amlodipine + Atorvastatin > than or = to 2.5/40 mg Ezetimibe + Simvastatin 10/80 mg Simvastatin 80mg Discharge Plan Admission Admit Date/Time: 11/18/23 17:09 Primary Reason for Your Visit: Acute Respiratory Failure, Bilateral Pneumonia Attending Provider: Georgina Gill Primary Care Provider: Page Sutton HUSBANDRY TECHNICIAN Consulting Providers: Fabian Perez; Tapan Stevens; Bobby Irizarry; Christofer Deleon; Nawaf Walsh; Javier Johnson; Georgette Mcmillan; Chepe Waters; Jesús Cruz; Jaz Harris; Gus Espinoza; Julio Villagomez; Darren Francisco; Shahbaz Gallardo; Darryl Martin; Fredrick Colbert; Shannan Rooney; Mahamed Dunn Instructions Patient Instructions: Understanding Oxygen Therapy, Using Oxygen at Home, ED COPD Flare, Pneumonia Additional Instructions / Restrictions: ADDITIONAL DISCHARGE INSTRUCTIONS/CARE PLAN: #1. Acute hypoxic respiratory failure secondary to acute bilateral pneumonia, possible gram-negative/gram-positive organisms with concern for concurrent acute on chronic COPD exacerbation: --Upon presentation patient with respiratory distress concerns, ABG obtained and placed on BiPAP at that time with eventually refusal of BiPAP and transitioned to Airvo eventually weaned to nasal cannula. --Patient with coughing fit initially upon presentation however she clinically improved as her respiratory distress improved and speech therapy was consulted and evaluated patient with no aspiration or dysphagia concerns allowed then to resume her regular diet. --Patient maintained initially on oral azithromycin, IV vancomycin and IV Zosyn with eventual MRSA screen was negative and clinical improvement thus upon discharged transitioned to oral augmentin and oral azithromycin to complete a total including inpatient regimen 7 days of antibiotic therapies. --Patient during admission on IV soumedrol transitioned to oral prednisone taper for 12 days upon discharge. --Patient also discharged on aerosol regimen planned for an additional 14 days. --Oxygenation assessment on 11/21/23 prior to discharge with noted oxygenation at rest 87% with improvement to 97% on 2 L nasal cannula and with ambulation patient noted to be 87% just on 1 L but improved to 90% on 2 L nasal cannula thus oxygen set up for discharge 2 L nasal cannula. --Please maintain the noted 2L NC continuously until re-evaluation per your primary care and appropriate weaned off per their direction. #2. Pleuritic chest pain, suspected secondary to #1: --Given prior NSTEMI and previous PCI maintain on telemetry, cardiac enzymes cycled which were unremarkable, EKG with no acute cardiopulmonary findings. #3. ESRD: --Patient with ongoing hemodialysis Thursday, , Thursday with Nephrology Dr. Granger consulted and patient with ongoing HD during admission with last dialysis 11/21/2023. Discharge Orders/Prescriptions Prescriptions: New guaifenesin [Mucus Relief ER] 1,200 mg Tablet Extended Release 12hr 1,200 mg PO BID 14 Days Qty: 28 0RF ipratropium-albuterol 0.5 mg-3 mg(2.5 mg base)/3 mL Solution For Nebulization 3 ml inhalation Q8H 14 Days Qty: 180 0RF nystatin [Nyamyc] 100,000 unit/gram Powder 1 applic topical BID 14 Days Qty: 1 0RF Protocol: *Topical Application Instructions APPLICATION INSTRUCTIONS: apply to groin, abdominal folds, under breasts Rx Instructions: Gently cleans skin folds w/ water/soap, pat dry, apply topical nystatin powder until complete resolution of fold redness/odor. azithromycin 250 mg Tablet 500 mg PO Q24 3 Days Qty: 6 0RF amoxicillin-pot clavulanate 875-125 mg tablet 1 tab PO BID 5 Days Qty: 10 0RF prednisone 10 mg tablet See Taper PO DAILY Qty: 30 0RF Taper: Prednisone Taper 40 mg WITH BREAKFAST for 3 Days and 0 Hour 30 mg WITH BREAKFAST for 3 Days and 0 Hour 20 mg WITH BREAKFAST for 3 Days and 0 Hour 10 mg WITH BREAKFAST for 3 Days and 0 Hour Continued torsemide 100 mg tablet 50 mg PO BID melatonin 5 mg tablet 5 mg PO HS PRN (Reason: Sleep) gabapentin 300 mg capsule 300 mg PO TID PRN (Reason: NEUROPATHY) aspirin 81 MG tablet,chewable 81 mg PO DAILY@0800 atorvastatin 80 MG tablet 80 mg PO QHS carvedilol 12.5 mg tablet 6.25 mg PO BID acetaminophen [Tylenol] 325 mg Tablet 650 mg PO Q6H PRN PRN (Reason: Pain 1-10 Or Fever) Qty: 0 0RF amlodipine 10 MG tablet 10 mg PO DAILY insulin aspart U-100 [Novolog FlexPen U-100 Insulin] 100 unit/mL (3 mL) insulin pen 5 unit SUBCUT BID Patient Comments: AT LUNCH AND DINNER. IF BS LESS THAN 80 DO NOT GIVE insulin glargine U-300 conc [Toujeo SoloStar U-300 Insulin] 300 unit/mL (1.5 mL) insulin pen 20 unit SC BREAKFAST allopurinol 100 mg tablet 100 mg PO DAILY cholecalciferol (vitamin D3) 50 mcg (2,000 unit) capsule 50 mcg PO DAILY Delancey Caps 1 mg capsule 1 cap PO DAILY Nephro-Todd 0.8 mg tablet 1 tab PO DAILY hydralazine 100 mg tablet 100 mg PO TID ezetimibe 10 mg tablet 10 mg PO QHS Referrals / Follow Up: Ketty Granger MD [Med Staff - Consulting] - (Follow-up with Nephrology as previously arranged for ongoing outpatient HD needs.) Page Sutton NP, HUSBANDRY TECHNICIAN-C [Primary Care Provider] - (Follow-up within 3-5 days to review admission.) Disposition Disposition (needs filled in before D/C Order can be placed): Home Health Service Charges/Coding Visit Charges Inpatient E&M: 45409 Disch Hosp >30min
--- NOTE | 2023-11-21 12:36 | PCM.DC ---
Discharge Instructions Diet Discharge Diet: - (Continue renal/cardiac diet.) Activity Discharge Activity: - (Encourage continued routine activity and ambulation in the home. Recommend continued usage of incentive spirometry 10x/hr from 7a-7p.) May resume sexual activity in: 10-14 days Weight Bearing Status: Weight bearing as tolerated Dressing / Incision Call your doctor if you observe: Fever of 101 or Higher, Dizziness, Swelling in the ankles, Chest pain, Increased palpitations (irregular heartbeat), Calf discomfort, Uncontrolled pain and - (Worsening shortness of breath.) Follow Up Care Test Results: Test results from this visit will be discussed in further detail at your follow-up appointment, if applicable. Discharge Plan Admission Admit Date/Time: 11/18/23 17:09 Primary Reason for Your Visit: Acute Respiratory Failure, Bilateral Pneumonia Attending Provider: Georgina Gill Primary Care Provider: Page Sutton NP Consulting Providers: Fabian Perez; Tapan Stevens; Bobby Irizarry; Christofer Deleon; Nawaf Walsh; Javier Johnson; Georgette Mcmillan; Chepe Waters; Jesús Cruz; Jaz Harris; Gus Espinoza; Julio Villagomez; Darren Francisco; Shahbaz Gallardo; Darryl Martin; Fredrick Colbert; Shannan Rooney; Mahamed Dunn Instructions Patient Instructions: Understanding Oxygen Therapy, Using Oxygen at Home, ED COPD Flare, Pneumonia Additional Instructions / Restrictions: ADDITIONAL DISCHARGE INSTRUCTIONS/CARE PLAN: #1. Acute hypoxic respiratory failure secondary to acute bilateral pneumonia, possible gram-negative/gram-positive organisms with concern for concurrent acute on chronic COPD exacerbation: --Upon presentation patient with respiratory distress concerns, ABG obtained and placed on BiPAP at that time with eventually refusal of BiPAP and transitioned to Airvo eventually weaned to nasal cannula. --Patient with coughing fit initially upon presentation however she clinically improved as her respiratory distress improved and speech therapy was consulted and evaluated patient with no aspiration or dysphagia concerns allowed then to resume her regular diet. --Patient maintained initially on oral azithromycin, IV vancomycin and IV Zosyn with eventual MRSA screen was negative and clinical improvement thus upon discharged transitioned to oral augmentin and oral azithromycin to complete a total including inpatient regimen 7 days of antibiotic therapies. --Patient during admission on IV soumedrol transitioned to oral prednisone taper for 12 days upon discharge. --Patient also discharged on aerosol regimen planned for an additional 14 days. --Oxygenation assessment on 11/21/23 prior to discharge with noted oxygenation at rest 87% with improvement to 97% on 2 L nasal cannula and with ambulation patient noted to be 87% just on 1 L but improved to 90% on 2 L nasal cannula thus oxygen set up for discharge 2 L nasal cannula. --Please maintain the noted 2L NC continuously until re-evaluation per your primary care and appropriate weaned off per their direction. #2. Pleuritic chest pain, suspected secondary to #1: --Given prior NSTEMI and previous PCI maintain on telemetry, cardiac enzymes cycled which were unremarkable, EKG with no acute cardiopulmonary findings. #3. ESRD: --Patient with ongoing hemodialysis Thursday, , Thursday with Nephrology Dr. Granger consulted and patient with ongoing HD during admission with last dialysis 11/21/2023. Discharge Orders/Prescriptions Prescriptions: New guaifenesin [Mucus Relief ER] 1,200 mg Tablet Extended Release 12hr 1,200 mg PO BID 14 Days Qty: 28 0RF ipratropium-albuterol 0.5 mg-3 mg(2.5 mg base)/3 mL Solution For Nebulization 3 ml inhalation Q8H 14 Days Qty: 180 0RF nystatin [Nyamyc] 100,000 unit/gram Powder 1 applic topical BID 14 Days Qty: 1 0RF Protocol: *Topical Application Instructions APPLICATION INSTRUCTIONS: apply to groin, abdominal folds, under breasts Rx Instructions: Gently cleans skin folds w/ water/soap, pat dry, apply topical nystatin powder until complete resolution of fold redness/odor. azithromycin 250 mg Tablet 500 mg PO Q24 3 Days Qty: 6 0RF amoxicillin-pot clavulanate 875-125 mg tablet 1 tab PO BID 5 Days Qty: 10 0RF prednisone 10 mg tablet See Taper PO DAILY Qty: 30 0RF Taper: Prednisone Taper 40 mg WITH BREAKFAST for 3 Days and 0 Hour 30 mg WITH BREAKFAST for 3 Days and 0 Hour 20 mg WITH BREAKFAST for 3 Days and 0 Hour 10 mg WITH BREAKFAST for 3 Days and 0 Hour Continued torsemide 100 mg tablet 50 mg PO BID melatonin 5 mg tablet 5 mg PO HS PRN (Reason: Sleep) gabapentin 300 mg capsule 300 mg PO TID PRN (Reason: NEUROPATHY) aspirin 81 MG tablet,chewable 81 mg PO DAILY@0800 atorvastatin 80 MG tablet 80 mg PO QHS carvedilol 12.5 mg tablet 6.25 mg PO BID acetaminophen [Tylenol] 325 mg Tablet 650 mg PO Q6H PRN PRN (Reason: Pain 1-10 Or Fever) Qty: 0 0RF amlodipine 10 MG tablet 10 mg PO DAILY insulin aspart U-100 [Novolog FlexPen U-100 Insulin] 100 unit/mL (3 mL) insulin pen 5 unit SUBCUT BID Patient Comments: AT LUNCH AND DINNER. IF BS LESS THAN 80 DO NOT GIVE insulin glargine U-300 conc [Toujeo SoloStar U-300 Insulin] 300 unit/mL (1.5 mL) insulin pen 20 unit SC BREAKFAST allopurinol 100 mg tablet 100 mg PO DAILY cholecalciferol (vitamin D3) 50 mcg (2,000 unit) capsule 50 mcg PO DAILY [place] Caps 1 mg capsule 1 cap PO DAILY Nephro-Todd 0.8 mg tablet 1 tab PO DAILY hydralazine 100 mg tablet 100 mg PO TID ezetimibe 10 mg tablet 10 mg PO QHS Referrals / Follow Up: Ketty Granger MD [Med Staff - Consulting] - (Follow-up with Nephrology as previously arranged for ongoing outpatient HD needs.) aPge Sutton NP, [facility] [Primary Care Provider] - (Follow-up within 3-5 days to review admission.) Disposition Disposition (needs filled in before D/C Order can be placed): Home Health Service
[2023-11-21 12:50] LABS: Anion Gap 9 (5-15); BUN 75 mg/dL (7-18); BUN/Creat Ratio 15.4 RATIO (10-20); Calcium,Total 8.5 mg/dL (8.5-10.1); Chloride 97 mmol/L (98-107); Creatinine, Serum 4.86 mg/dL (0.55-1.02); EST Glomerular Filtration Rate 10 mL/min (>60); Est Glom Filt Rate - Afr Amer 12 mL/min (>60); Estimated Creatinine Clearance 14.58 ml/min; Glucose 325 mg/dL (74-106); Sodium Level 132 mmol/L (136-145)
--- NOTE | 2023-11-21 13:01 | NURSING ---
[facility] notified of need for home oxygen set up and prescription faxed.
--- NOTE | 2023-11-21 13:34 | CASEMGMT ---
Social Work Pt completed POA for healthcare w/SW, LW deferred at this time. Pt's daughter participated in the meeting via speakerphone, pt wanted her to be part of the conversation. Pt named her daughter Madi as healthcare POA. SW placed a copy on the chart, gave pt the original and a copy. [place] eLary
[2023-11-21] MEDS: hydrALAZINE 50 MG Tablet 100 MG PO (15:15)
== END 2023-11-21 16:24 | disposition home health service (06) | DRG 189 ==
PROVIDERS: Admitting Provider Internal Medicine; PCP Nurse Practitioner Family; Referring Provider Internal Medicine; Visit Provider Family Medicine
DX: J96.01 Acute respiratory failure with hypoxia (principal); J18.9 Pneumonia, unspecified organism; N18.6 End stage renal disease; I13.2 Hypertensive heart and chronic kidney disease with heart failure and with stage 5 chronic kidney disease, or end stage renal disease; E87.1 Hypo-osmolality and hyponatremia; J44.0 Chronic obstructive pulmonary disease with (acute) lower respiratory infection; Z68.41 Body mass index [BMI] 40.0-44.9, adult; I50.32 Chronic diastolic (congestive) heart failure; J44.1 Chronic obstructive pulmonary disease with (acute) exacerbation; D63.1 Anemia in chronic kidney disease; E11.22 Type 2 diabetes mellitus with diabetic chronic kidney disease; E11.40 Type 2 diabetes mellitus with diabetic neuropathy, unspecified; F01.50 Vascular dementia, unspecified severity, without behavioral disturbance, psychotic disturbance, mood disturbance, and anxiety; I69.319 Unspecified symptoms and signs involving cognitive functions following cerebral infarction; E66.01 Morbid (severe) obesity due to excess calories; E78.5 Hyperlipidemia, unspecified; I25.10 Atherosclerotic heart disease of native coronary artery without angina pectoris; E87.5 Hyperkalemia; M10.9 Gout, unspecified; Z99.2 Dependence on renal dialysis; Z79.4 Long term (current) use of insulin; T17.918A Gastric contents in respiratory tract, part unspecified causing other injury, initial encounter; I25.2 Old myocardial infarction; Y92.239 Unspecified place in hospital as the place of occurrence of the external cause; Z79.82 Long term (current) use of aspirin; Z87.891 Personal history of nicotine dependence; Z95.5 Presence of coronary angioplasty implant and graft
CPT/HCPCS: 36415; 36600; 71045; 80048; 80053; 80202; 81001; 82550; 82803; 82962; 83605; 83735; 84484; 85025; 85610; 85730; 87040; 87086; 87088; 87449; 87631; 87633; 87641; 90937; 92523; 93005; 94640; 94660; 94668; 97162; 97166; 99252; J7030; J7040; A4216; G0257; G0463; J2405

== ENCOUNTER 2023-12-14 06:13 | Inpatient (IN) | payer MEDICARE, MEDICAID, SELFPAY ==
[2023-12-14] VITALS (47 sets, daily range): BP systolic 99–278; BP diastolic 65–94; PULSE 71–93; RESP 13–27; TEMP 36.3–36.7; O2SAT 60–100; BMI 44.3; BMI 44.4; BMI 43.2
--- NOTE | 2023-12-14 06:31 | RAD_ITS ---
STUDY: X-RAY CHEST REASON FOR EXAM: Female, 57 years old. Dyspnea TECHNIQUE: Single AP portable view of the chest. COMPARISON: Comparison is made with prior study November 18, 2023. FINDINGS: EKG electrodes are seen. Diffuse bilateral airspace disease involving both lungs. The differential diagnosis should include either pulmonary edema or bilateral pneumonia. Follow-up recommended. There is no demonstrated pleural abnormality. Normal size heart. Normal mediastinum and kristi. Normal visualized pulmonary arteries. There is atherosclerotic calcification of the aortic arch with tortuosity. There are diffuse degenerative changes of the visualized thoracic spine. Normal visualized ribs, clavicles, and shoulders. There is no demonstrated abnormality of the visualized soft tissue structures of the upper abdomen. RAD/Chest 1 View (Portable) IMPRESSION: Bilateral airspace disease as described. Differential diagnosis to consider should include either pulmonary edema or bilateral pneumonia. Electronically Signed: David Painting MD at 8:27 EDT ,
--- NOTE | 2023-12-14 06:33 | EX.ED.DYSGE1 ---
HPI History of Present Illness Chief Complaint: Shortness of Breath Informant: patient, family and EMS Narrative Narrative: 57-year-old female with extensive medical problems including end-stage renal disease on dialysis (Thursday) coronary artery disease and COPD. Was reported that the patient vomited several times earlier this morning. She states she had 2 bowel movements but does not know if it was diarrhea or not. She states she was feeling fine yesterday. Family checked on her and she was confused and they noted that she did have her oxygen on and she was only 48% on room air. Therefore squad was called. Patient continues to feel mildly nauseous. No reported fevers. EMS transported on nonrebreather and she was transferred readings and cannula. She has been 8990% on 6 L currently. Family is concerned that her pneumonia may have come back as she was in the hospital a couple weeks ago with pneumonia [facility] Medical History Dependence on renal dialysis Easy bruising Dietary restriction History of edema Hx of cardiovascular stress test Hx of echocardiogram Cardiology follow-up encounter TIA (transient ischemic attack) Acute alteration in mental status Community acquired pneumonia ESRD (end stage renal disease) on dialysis Wears glasses Insulin dependent diabetes mellitus Low iron Former smoker Cardiology follow-up encounter Chronic heart failure with preserved ejection fraction (HFpEF) History of non-ST elevation myocardial infarction (NSTEMI) (01/20/21) Debility COVID-19 (01/20/21) Inability to walk Generalized weakness Non-STEMI (non-ST elevated myocardial infarction) (01/20/21) Ischemic cerebrovascular accident (CVA) (04/2018) Respiratory insufficiency Hypoxia Anxiety Bilateral carotid bruits Hyperlipidemia Malignant hypertension Headache Type 2 diabetes mellitus without complication Essential hypertension Atherosclerosis of coronary artery of [place] heart without angina pectoris GERD (gastroesophageal reflux disease) Depression History of renal calculi History of cholelithiasis Morbid obesity Acute renal injury due to circulatory failure Home Medications ?Medication ?Instructions ?Recorded ?Last Taken ?Type aspirin 81 mg chewable tablet 81 mg PO DAILY@0800 HEART HEALTH 07/15/18 04/26/23 History atorvastatin 80 mg tablet 80 mg PO QHS CHOLESTEROL 08/04/18 04/26/23 History torsemide 100 mg tablet 50 mg PO BID diuretic 04/14/19 04/26/23 History melatonin 5 mg tablet 5 mg PO HS PRN Sleep 08/03/20 01/19/21 History carvedilol 12.5 mg tablet 6.25 mg PO BID blood pressure 09/20/20 04/27/23 History acetaminophen 325 mg tablet 650 mg (2 x 325 mg) PO Q6H PRN PRN 10/03/20 Unknown Rx (Tylenol) Pain 1-10 Or Fever #0 tabs amlodipine 10 mg tablet 10 mg PO DAILY blood pressure 01/20/21 04/27/23 History insulin aspart U-100 100 unit/mL 5 unit subcut BID blood sugar 03/21/21 04/26/23 History (3 mL) subcutaneous pen (Novolog FlexPen U-100 Insulin aspart) insulin glargine U-300 conc 300 20 unit subcut BREAKFAST diabetes 03/21/21 04/26/23 History unit/mL (1.5 mL) subcutaneous pen (Toujeo SoloStar U-300 Insulin) gabapentin 300 mg capsule 300 mg PO TID PRN NEUROPATHY 12/10/22 Unknown History allopurinol 100 mg tablet 100 mg PO DAILY 01/13/23 04/26/23 History cholecalciferol (vitamin D3) 50 50 mcg PO DAILY 01/13/23 04/26/23 History mcg (2,000 unit) capsule ezetimibe 10 mg tablet 10 mg PO QHS 01/13/23 04/26/23 History hydralazine 100 mg tablet 100 mg PO TID 01/13/23 Unknown History vitamin B complex and vitamin C 1 cap PO DAILY 01/13/23 04/26/23 History no.20-folic acid 1 mg capsule ([place] Caps) vitamin B complex-vitamin C-folic 1 tab PO DAILY 01/13/23 04/26/23 History acid 0.8 mg tablet (Nephro-Todd) ipratropium 0.5 mg-albuterol 3 mg 3 ml inhalation Q8H COPD 11/21/23 Unknown Rx (2.5 mg base)/3 mL nebulization exacerbation/Pneumonia 14 days soln #180 mL nystatin 100,000 unit/gram topical 1 applic topical BID 14 days #1 11/21/23 Unknown Rx powder (Nyamy) BOTTLE Allergy/AdvReac Type Severity Reaction Status Date / Time No Known Allergies Allergy Verified 12/14/23 06:14 Family History Mother Diabetes Heart disease Hypertension Father Hypertension Heart disease Brother Heart disease Hypertension Sister Heart disease Diabetes Surgical History History of surgery History of arteriovenostomy for renal dialysis (~03/2021) History of History of appendectomy History of cholecystectomy History of coronary artery stent placement (06/2016) History of left heart catheterization (05/27/21) Social History Smoking Status: Former smoker alcohol intake: never ROS ROS ED Constitutional Constitutional ED: Denies chills, fever(s) or weight loss Eyes Eyes: Denies change in vision or diplopia ENT ENT ED: Denies ear pain, rhinorrhea or sore throat Cardiovascular Cardiovascular: Denies chest pain, orthopnea, palpitations or racing heartbeat Respiratory/Chest Respiratory/Chest: Reports cough and dyspnea; Denies orthopnea Gastrointestinal Gastrointestinal: Reports nausea and vomiting; Denies abdominal pain Genitourinary Genitourinary ED: Denies dysuria, hematuria or urinary frequency Musculoskeletal Musculoskeletal: Denies arthralgias or myalgias Integumentary Denies abscess or rash Neurologic Neurologic: Denies headache(s) or weakness Psychiatric Psychiatric: Denies anxiety, depression, suicidal ideation or suicidal thoughts Endocrine Endocrinology: Denies polydipsia, polyphagia or polyuria Allergic/Immunologic Allergic/Immunologic ED: Denies mouth swelling, tongue swelling or urticaria EXAM Physical Exam Const Vital Signs: 12/14/23 06:14 12/14/23 06:18 12/14/23 06:20 Temperature 97.7 F L 97.7 F L Temperature Source Oral Oral Pulse Rate 84 84 Respiratory Rate 27 H 27 H Respiratory Effort Respiratory Pattern Blood Pressure 172/74 H 172/74 H Blood Pressure Mean 106 106 Pulse Ox 96 96 96 Oxygen Delivery Method Non-Rebreather Non-Rebreather Non-Rebreather Oxygen Flow Rate (L/min) 15 15 Fraction of Inspired Oxygen (FIO2) 100 12/14/23 06:21 12/14/23 06:24 12/14/23 06:29 Temperature Temperature Source Pulse Rate Respiratory Rate Respiratory Effort Short of Breath Labored Respiratory Pattern Tachypnea Blood Pressure Blood Pressure Mean Pulse Ox 86 95 Oxygen Delivery Method Non-Rebreather Nasal Cannula High Flow Oxygen Flow Rate (L/min) 6 10 Fraction of Inspired Oxygen (FIO2) 12/14/23 06:37 12/14/23 07:18 12/14/23 07:27 Temperature 97.6 F L Temperature Source Temporal Pulse Rate 78 Respiratory Rate 22 H Respiratory Effort Respiratory Pattern Blood Pressure 175/94 H Blood Pressure Mean 121 Pulse Ox 98 99 Oxygen Delivery Method High Flow High Flow High Flow Oxygen Flow Rate (L/min) 9 9 9 Fraction of Inspired Oxygen (FIO2) 12/14/23 07:27 12/14/23 07:34 Temperature Temperature Source Pulse Rate 78 Respiratory Rate 15 Respiratory Effort Respiratory Pattern Blood Pressure Blood Pressure Mean Pulse Ox 98 Oxygen Delivery Method High Flow Oxygen Flow Rate (L/min) 6 Fraction of Inspired Oxygen (FIO2) Positive well nourished and well developed General Appearance ED: well developed HEENT Reports normocephalic, head/scalp atraumatic and moist mucous membranes Eyes PERRL and EOMs intact bilaterally Neck no lymphadenopathy, supple and no JVD Resp Resp Narrative: Patient is slightly tachypneic with pursed lip breathing. scattered wheezing and rhonchi that improved with cough Cardio regular rate, regular rhythm and no murmurs GI normal to inspection, nondistended, normoactive bowel sounds and non-tender Palpation: soft Back/Spine no CVA tenderness and normal ROM Extremity normal to inspection General Extremety ED: Negative for edema General Extremity: Negative for edema Neuro CN's II-XII intact bilaterally Sensorium / Orientation: alert and orientation impaired Motor Exam: strength 5/5 throughout Psych mental status grossly normal Mood & Affect: Negative for depressed or tearful Skin no rashes or lesions noted and no wounds MDM MDM MDM Narrative Medical decision making narrative: Differential diagnosis would include but not limited to pleural effusion volume overload heart failure ACS COPD exacerbation pneumonia My independent interpretation the single view chest x-ray is multilobar pneumonia. EKG is sinus rhythm with first-degree AV block. White count 11.1 hemoglobin of 10 platelet count is 146. Potassium 5.2 creatinine 5.67 with a BUN of 58 troponin is 40 lipase is 48. Patient received breathing treatment and antibiotics were started in the form of cefepime, vancomycin and azithromycin. After the DuoNeb the patient had substantially more wheezing I ordered another albuterol and Solu-Medrol. She is currently requiring 9 L Airvo. ABG will be obtained. This did not show any significant elevation of CO2 or acidosis/alkalosis. History & Record Review Discussion w/independent historian: Patient Additional record(s) reviewed:: Prior inpatient record, Prior ED visit and Prior labs Lab Data Attestation: I reviewed the patient's lab results. Labs: Laboratory Results - last 24 hr 12/14/23 06:41 WBC 11.1 H RBC 3.29 L Hgb 10.0 L Hct 32.5 L MCV 98.8 MCH 30.4 MCHC 30.8 L RDW Std Deviation 54.2 H RDW Coeff of [place] 15.1 H Plt Count 146 L MPV 12.7 H Immature Gran % (Auto) 1.300 H Neut % (Auto) 86.4 H Lymph % (Auto) 5.8 L [place] % (Auto) 4.7 Eos % (Auto) 1.4 Baso % (Auto) 0.4 Absolute Neuts (auto) 9.6 H Absolute Lymphs (auto) 0.64 L Nucleated RBC % 0 Sodium 136 Potassium 5.2 H Chloride 101 Carbon Dioxide 27.0 Anion Gap 8 BUN 58 H Creatinine 5.67 H Estim Creat Clear Calc 12.79 Est GFR (MDRD) Af Amer 10 L Est GFR (MDRD) Non-Af 8 L BUN/Creatinine Ratio 10.2 Glucose 285 H Lactic Acid 0.8 Calcium 8.7 Total Bilirubin 0.80 Direct Bilirubin 0.24 AST 54 H ALT 75 H Alkaline Phosphatase 105 Troponin I High Sens 40 Total Protein 6.9 Albumin 3.3 Globulin 3.6 Lipase 48 ABG Data ABG results: ABG 12/14/23 07:57 Specimen Type ART Sample Site L Radial pH 7.40 Bicarbonate Actual 26.0 Total CO2 27 Base Excess 1 O2 Saturation 91 L O2 % 4.0 ABG pCO2 42.3 ABG pO2 61 L [place] Test Positive O2 Delivery Device Cannula Vent Mode Not entered EKG Initial EKG: Attestation: I personally reviewed and interpreted this EKG as follows: Comments: Sinus rhythm first-degree AV block ventricular rate of 84 bpm Management Discussion w/another healthcare provider: Hospitalist (Dr Dunn) Discharge Plan Dx/Rx/DC Orders Clinical Impression: Atherosclerosis of coronary artery of [place] heart without angina pectoris, Hypoxia, ESRD (end stage renal disease) on dialysis, Pneumonia Disposition Disposition: Acute Care Hospital [facility]
[2023-12-14 06:49] LABS: Absolute Lymphocyte Count 0.64 X10^3/uL (0.83-4.51); Absolute Neutrophil Count 9.6 X10^3/uL (2.0-7.7); Basophil# 0.04 X10^3/uL; Basophil% 0.4 % (0-1); Eosinophil# 0.15 X10^3/uL; Eosinophils% 1.4 % (0-5); Hematocrit 32.5 % (37-47); Lymphocyte # 0.64 X10^3/ul (0.83-4.51); Lymphocyte % 5.8 % (19-41); Mean Corp Hgb Conc 30.8 g/dL (32-36); Mean Corpuscular Hgb 30.4 pg (27.0-32.0); Mean Corpuscular Volume 98.8 fL (81-99); Mean Platelet Vol. 12.7 fl (6.2-12.0); Monocyte# 0.52 X10^3/uL; Monocyte% 4.7 % (0-10); NRBC Flagged by Analyzer 0 % (0-5); Neutrophil # 9.57 X10^3/uL (2.7-7.7); Neutrophil % 86.4 % (47-70); Platelet Count 146 K/mm3 (150-450); RBC Distribution Width CV 15.1 % (11.6-14.6); RBC Distribution Width SD 54.2 fl (35.1-43.9); Red Blood Count 3.29 M/mm3 (4.2-5.4); White Blood Count 11.1 K/mm3 (4.4-11.0)
[2023-12-14] MEDS: Ondansetron 4 MG/2 ML Vial IV (07:12)
[2023-12-14 07:17] LABS: AST(SGOT) 54 U/L (15-37); Alanine Aminotransfer ALT/SGPT 75 U/L (13-56); Albumin, Serum 3.3 g/dL (3.2-5.0); Alkaline Phosphatase 105 U/L (45-117); Anion Gap 8 (5-15); BUN 58 mg/dL (7-18); BUN/Creat Ratio 10.2 RATIO (10-20); Bilirubin, Direct 0.24 mg/dL (0.00-0.30); Calcium,Total 8.7 mg/dL (8.5-10.1); Chloride 101 mmol/L (98-107); Creatinine, Serum 5.67 mg/dL (0.55-1.02); EST Glomerular Filtration Rate 8 mL/min (>60); Est Glom Filt Rate - Afr Amer 10 mL/min (>60); Estimated Creatinine Clearance 12.79 ml/min; Globulin 3.6 g/dL (2.2-4.2); Glucose 285 mg/dL (74-106); Lipase 48 U/L (13-75); Potassium 5.2 mmol/L (3.5-5.1); Protein, Total 6.9 g/dL (6.4-8.2); Sodium Level 136 mmol/L (136-145); Troponin-I HS 40 pg/mL (3.0-54.0)
[2023-12-14] MEDS: Ipratropium/Albuterol Sulfate 3 ML AMPUL.NEB INHALATION ×2 (07:25→19:05)
--- NOTE | 2023-12-14 07:32 | HP.PCM.HOS_ITS ---
HPI - General General Date of Admission: 12/14/23 Date of Service: 12/14/23 Chief Complaint: Sudden onset of shortness of breath, severe hypoxia/altered mental status HPI Narrative ZAYDA ANTOINE, is a 57 F was discharged to 3 weeks ago after treatment for acute hypoxic respiratory failure secondary to bilateral pneumonia was brought to ED by EMS for severe sudden onset of shortness of breath and hypoxia. Usually patient on 2 L of home oxygen. She woke up short of breath tripoding and vomited. Her pulse ox was noted to 48% with her oxygen. Patient does not report fever but was feeling cold and shivering, and nauseous. Patient was on 89% of 6 L and then increased to 9 L high flow and then nonrebreather. When I saw the patient she looked little confused with eyes closed although she is conversant but feels like she is very early to respond and does not listen and understand the whole question. History taken from her sister near the bedside. Chest x-ray individually reviewed and shows bilateral pneumonia. She is also on hemodialysis Vitals, labs and EKG and chest x-ray reviewed and discussed assessment and plan [facility] Medical History Dependence on renal dialysis Easy bruising Dietary restriction History of edema Hx of cardiovascular stress test Hx of echocardiogram Cardiology follow-up encounter TIA (transient ischemic attack) Acute alteration in mental status Community acquired pneumonia ESRD (end stage renal disease) on dialysis Wears glasses Insulin dependent diabetes mellitus Low iron Former smoker Cardiology follow-up encounter Chronic heart failure with preserved ejection fraction (HFpEF) History of non-ST elevation myocardial infarction (NSTEMI) (01/20/21) Debility COVID-19 (01/20/21) Inability to walk Generalized weakness Non-STEMI (non-ST elevated myocardial infarction) (01/20/21) Ischemic cerebrovascular accident (CVA) (04/2018) Respiratory insufficiency Hypoxia Anxiety Bilateral carotid bruits Hyperlipidemia Malignant hypertension Headache Type 2 diabetes mellitus without complication Essential hypertension Atherosclerosis of coronary artery of [place] heart without angina pectoris GERD (gastroesophageal reflux disease) Depression History of renal calculi History of cholelithiasis Morbid obesity Acute renal injury due to circulatory failure Home Medications ?Medication ?Instructions ?Recorded ?Last Taken ?Type aspirin 81 mg chewable tablet 81 mg PO DAILY@0800 [facility] 07/15/18 04/26/23 History atorvastatin 80 mg tablet 80 mg PO QHS CHOLESTEROL 08/04/18 04/26/23 History torsemide 100 mg tablet 50 mg PO BID diuretic 04/14/19 04/26/23 History melatonin 5 mg tablet 5 mg PO HS PRN Sleep 08/03/20 01/19/21 History carvedilol 12.5 mg tablet 6.25 mg PO BID blood pressure 09/20/20 04/27/23 History acetaminophen 325 mg tablet 650 mg (2 x 325 mg) PO Q6H PRN PRN 10/03/20 Unknown Rx (Tylenol) Pain 1-10 Or Fever #0 tabs amlodipine 10 mg tablet 10 mg PO DAILY blood pressure 01/20/21 04/27/23 History insulin aspart U-100 100 unit/mL 5 unit subcut BID blood sugar 03/21/21 04/26/23 History (3 mL) subcutaneous pen (Novolog FlexPen U-100 Insulin aspart) insulin glargine U-300 conc 300 20 unit subcut BREAKFAST diabetes 03/21/21 04/26/23 History unit/mL (1.5 mL) subcutaneous pen (Toujeo SoloStar U-300 Insulin) gabapentin 300 mg capsule 300 mg PO TID PRN NEUROPATHY 12/10/22 Unknown History allopurinol 100 mg tablet 100 mg PO DAILY 01/13/23 04/26/23 History cholecalciferol (vitamin D3) 50 50 mcg PO DAILY 01/13/23 04/26/23 History mcg (2,000 unit) capsule ezetimibe 10 mg tablet 10 mg PO QHS 01/13/23 04/26/23 History hydralazine 100 mg tablet 100 mg PO TID 01/13/23 Unknown History vitamin B complex and vitamin C 1 cap PO DAILY 01/13/23 04/26/23 History no.20-folic acid 1 mg capsule ([place] Caps) vitamin B complex-vitamin C-folic 1 tab PO DAILY 01/13/23 04/26/23 History acid 0.8 mg tablet (Nephro-Todd) ipratropium 0.5 mg-albuterol 3 mg 3 ml inhalation Q8H COPD 11/21/23 Unknown Rx (2.5 mg base)/3 mL nebulization exacerbation/Pneumonia 14 days soln #180 mL nystatin 100,000 unit/gram topical 1 applic topical BID 14 days #1 11/21/23 Unknown Rx powder ([facility]) BOTTLE Allergy/AdvReac Type Severity Reaction Status Date / Time No Known Allergies Allergy Verified 12/14/23 06:14 Family History Mother Diabetes Heart disease Hypertension Father Hypertension Heart disease Brother Heart disease Hypertension Sister Heart disease Diabetes Surgical History History of surgery History of arteriovenostomy for renal dialysis (~03/2021) History of History of appendectomy History of cholecystectomy History of coronary artery stent placement (06/2016) History of left heart catheterization (05/27/21) Social History Smoking Status: Former smoker alcohol intake: never ROS ROS Narrative 14 system ROS was taken from the patient and her sister at the bedside but patient looks mildly confused and disoriented Constitutional: Reports fatigue and weakness. No fever. HEENT: Reports systems reviewed and no addt'l complaints, except as documented Respiratory/Chest: As described in HPI CVS: No chest pain pressure but tightness and chest congestion Gastrointestinal: Denies coffee ground emesis, hematemesis or melena. 2-3 loose bowel movements, soft in consistency last 2 to 3 days but getting better Genitourinary: On hemodialysis denies burning urination or new urinary tract symptoms Musculoskeletal: Denies acute joint pain or limited range of motion. No acute injury Neurologic: Denies seizure-like symptoms. Previous history of stroke skin: No ulcer. No rash Endocrinology: Reports systems reviewed and no addt'l complaints, except as documented Hematologic/Lymphatic: Reports systems reviewed and no addt'l complaints, except as documented Rest 14 ROS are negative except as mentioned in HPI Vital Signs Vital Signs Vital Signs: 12/14/23 06:14 12/14/23 06:18 12/14/23 06:20 Temperature 97.7 F L 97.7 F L Temperature Source Oral Oral Pulse Rate 84 84 Respiratory Rate 27 H 27 H Respiratory Effort Respiratory Pattern Blood Pressure 172/74 H 172/74 H Blood Pressure Mean 106 106 Pulse Ox 96 96 96 Oxygen Delivery Method Non-Rebreather Non-Rebreather Non-Rebreather Oxygen Flow Rate (L/min) 15 15 Fraction of Inspired Oxygen (FIO2) 100 12/14/23 06:21 12/14/23 06:24 12/14/23 06:29 Temperature Temperature Source Pulse Rate Respiratory Rate Respiratory Effort Short of Breath Labored Respiratory Pattern Tachypnea Blood Pressure Blood Pressure Mean Pulse Ox 86 95 Oxygen Delivery Method Non-Rebreather Nasal Cannula High Flow Oxygen Flow Rate (L/min) 6 10 Fraction of Inspired Oxygen (FIO2) 12/14/23 06:37 12/14/23 07:18 12/14/23 07:27 Temperature 97.6 F L Temperature Source Temporal Pulse Rate 78 Respiratory Rate 22 H Respiratory Effort Respiratory Pattern Blood Pressure 175/94 H Blood Pressure Mean 121 Pulse Ox 98 99 Oxygen Delivery Method High Flow High Flow High Flow Oxygen Flow Rate (L/min) 9 9 9 Fraction of Inspired Oxygen (FIO2) 12/14/23 07:27 Temperature Temperature Source Pulse Rate 78 Respiratory Rate 15 Respiratory Effort Respiratory Pattern Blood Pressure Blood Pressure Mean Pulse Ox Oxygen Delivery Method Oxygen Flow Rate (L/min) Fraction of Inspired Oxygen (FIO2) Weight Weight: 242 lb 4.608 oz Body Mass Index (BMI) 44.3 Results Lab / Micro Data 12/14/23 06:41 12/14/23 06:41 Labs: Laboratory Results - last 24 hr 12/14/23 06:41: WBC 11.1 H, RBC 3.29 L, Hgb 10.0 L, Hct 32.5 L, MCV 98.8, MCH 30.4, MCHC 30.8 L, RDW Std Deviation 54.2 H, RDW Coeff of [place] 15.1 H, Plt Count 146 L, MPV 12.7 H, Immature Gran % (Auto) 1.300 H, Neut % (Auto) 86.4 H, Lymph % (Auto) 5.8 L, [place] % (Auto) 4.7, Eos % (Auto) 1.4, Baso % (Auto) 0.4, Absolute Neuts (auto) 9.6 H, Absolute Lymphs (auto) 0.64 L, Nucleated RBC % 0, Sodium 136, Potassium 5.2 H, Chloride 101, Carbon Dioxide 27.0, Anion Gap 8, BUN 58 H, Creatinine 5.67 H, Estim Creat Clear Calc 12.79, Est GFR (MDRD) Af Amer 10 L, E st GFR (MDRD) Non-Af 8 L, BUN/Creatinine Ratio 10.2, Glucose 285 H, Calcium 8.7, Total Bilirubin 0.80, Direct Bilirubin 0.24, AST 54 H, ALT 75 H, Alkaline Phosphatase 105, Troponin I High Sens 40, Total Protein 6.9, Albumin 3.3, Globulin 3.6, Lipase 48 Assessment & Plan Assessment/Plan (1) Pneumonia: (2) COPD exacerbation: PLAN: Plan This is 57-year-old female with multiple comorbidities admitted with acute onset of shortness of breath severe hypoxia and cough 1. Acute severe hypoxic respiratory failure due to bilateral COVID-19 pneumonia: Chest x-ray initially reviewed but not officially reported. It shows bilateral patchy and airspace consolidation in mid to lower lung [place]. Twelve-lead EKG shows sinus rhythm 84 bpm, QTc 422 ms. First-degree AV block. Patient is being admitted in ICU. ABG 7.40/42 point , pulse ox 91% on 4 L of oxygen. Advised to put to increase FiO2 high flow oxygen/Airvo. Pneumonia workup ordered. Started on empiric antibiotic IV Zosyn and vancomycin.I suspect patient might have aspiration pneumonia too. Triple PCR came Positive for COVID only, rest RSV and flu are negative. Started on IV remdesivir and dexamethasone. 2. Acute encephalopathy probably metabolic/infectious etiology: Treat underlying disorder. 3. Suspicion of aspiration/aspiration pneumonia: During previous admission speech therapy was consulted and evaluated the patient and no aspiration or dysphagia concern was found. Consult to speech therapy. 4. ESRD on hemodialysis TTS with mild hyperkalemia: [employer] Dr. Granger has been consulted.AV fistula on right forearm. Mild hyperkalemia, K. 5.2 BUN/creatinine 50/5.67. Bicarb 27 anion gap 8. Sodium 136. 5. CAD: Patient denies chest pain/pressure. Had PCI in the past. Continue home aspirin statin Coreg. Not on TAYLOR or ARB 6. Hypertension and dyslipidemia: BP was elevated in ED 172/74. Patient on antihypertensive medication at home continued. 7. Cerebrovascular disease with previous stroke in 2019 with? vascular dementia-complicates care 8. DM type II: Glucose 285. Accu-Chek before meals and at bedtime with Humalog sliding scale coverage and hypoglycemia protocol. Home dose of Lantus and short-acting insulin continued Living will/advanced directive/end of life care: Patient does not have living will or advanced directive. As per the sister at the bedside, patient has power of family law attorney for health, her daughter and herself. After discussion of benefits/risks procedures involved with full code, DNR CC arrest and DNR CC, the patient and her sister opted for full code. Patient does want artificial life support including intubation, tube feed, ventilator and/chest compression, central venous catheter, vasopressor and DC shock if needed Total time spent in [id number] encounter in discussion of advanced directive 17 minutes. Laboratory Results 12/14/23 06:41: WBC 11.1 H, RBC 3.29 L, Hgb 10.0 L, Hct 32.5 L, MCV 98.8, MCH 30.4, MCHC 30.8 L, RDW Std Deviation 54.2 H, RDW Coeff of [place] 15.1 H, Plt Count 146 L, MPV 12.7 H, Immature Gran % (Auto) 1.300 H, Neut % (Auto) 86.4 H, Lymph % (Auto) 5.8 L, [place] % (Auto) 4.7, Eos % (Auto) 1.4, Baso % (Auto) 0.4, Absolute Neuts (auto) 9.6 H, Absolute Lymphs (auto) 0.64 L, Nucleated RBC % 0, Sodium 136, Potassium 5.2 H, Chloride 101, Carbon Dioxide 27.0, Anion Gap 8, BUN 58 H, Creatinine 5.67 H, Estim Creat Clear Calc 12.79, Est GFR (MDRD) Af Amer 10 L, Est GFR (MDRD) Non-Af 8 L, BUN/Creatinine Ratio 10.2, Glucose 285 H, Lactic Acid 0.8, Calcium 8.7, Total Bilirubin 0.80, Direct Bilirubin 0.24, AST 54 H, A LT 75 H, Alkaline Phosphatase 105, Troponin I High Sens 40, Total Protein 6.9, Albumin 3.3, Globulin 3.6, Lipase 48 12/14/23 07:57: Specimen Type ART, Sample Site L Radial, pH 7.40, Bicarbonate Actual 26.0, Total CO2 27, Base Excess 1, O2 Saturation 91 L, O2 % 4.0, ABG pCO2 42.3, ABG pO2 61 L, Lalito Test Positive, O2 Delivery Device Cannula, Vent Mode Not entered Charges/Coding Visit Charges Inpatient E&M: 43468 Init Hosp L3 Procedures Hospitalists Procedures: 95824 Advncd Care Plan 30 Min
[2023-12-14 07:43] LABS: Lactic Acid 0.8 mmol/L (0.4-1.9)
[2023-12-14] MEDS: Cefepime HCl 2 GM in 0.9% Normal Saline (100mL MB+) 100 ML IV (07:50)
[2023-12-14 08:01] LABS: Allen Test Positive; Base Excess 1 mmol/L (-2 to +2); Blood Gas Specimen Type ART; Mode Not entered; O2 Delivery Device Cannula; PO2 61 mmHG (75-100); SITE L Radial; SO2 91 % (95-99); Total Carbon Dioxide 27 mmol/L; pCO2 42.3 mmHg (35-45)
[2023-12-14] MEDS: Vancomycin HCl 2,000 MG in 0.9% Normal Saline (500mL Bag) 500 ML 250 MG IV (08:22)
[2023-12-14] MEDS: MethylPREDNISolone 125 MG/2 ML Vial 60 MG IV (08:22)
--- NOTE | 2023-12-14 09:25 | PCM.RX.CS ---
Consult Antibiotic Management Pharmacy has been consulted to manage selected antibiotic: Vancomycin Type of Intervention Type of Consult: New start Suspected Infection Suspected Infection: Pneumonia Prior Doses of Antibiotics Prior Doses of Antibiotics Received/Current Regimen: 12/14/23 @ 0822 2000MG given to patient Labs Labs: Sodium 136 mmol/L (136-145) 12/14/23 06:41 Potassium 5.2 mmol/L (3.5-5.1) H 12/14/23 06:41 Chloride 101 mmol/L (98-107) 12/14/23 06:41 Carbon Dioxide 27.0 mmol/L (21.0-32.0) 12/14/23 06:41 Anion Gap 8 (5-15) 12/14/23 06:41 BUN 58 mg/dL (7-18) H 12/14/23 06:41 Creatinine 5.67 mg/dL (0.55-1.02) H 12/14/23 06:41 Est GFR (MDRD) Af Amer 10 mL/min (>60) L 12/14/23 06:41 Est GFR (MDRD) Non-Af 8 mL/min (>60) L 12/14/23 06:41 BUN/Creatinine Ratio 10.2 RATIO (10-20) 12/14/23 06:41 Glucose 285 mg/dL (74-106) H 12/14/23 06:41 Microbiology Microbiology: Microbiology 12/14/23 07:14 Mucosa - Nose SARS-CoV-2, Influenza & RSV (PCR) - Final SARS-CoV-2 (COVID 19 PCR) Dosing Weight Weight used for dosin kg Estimated Creatinine Clearance Estimated Creatinine Clearance: 13 Pharmacy Plan for Drug Dosing Pharmacy Plan for Drug Dosing: Random Vancomycin level ordered for 12/15/23 @ 0600 Pharmacy Service will continue to monitor and adjust dosing as required. Date/Time Labs Ordered Labs to be done on [date and time ordered]: 12/15/23 @ 0600 Random
[2023-12-14 09:45] LABS: Magnesium 2.2 mg/dL (1.6-2.6)
--- NOTE | 2023-12-14 09:50 | EX.PCM.CONCC ---
Assessment & Plan Assessment/Plan (1) COVID: PLAN: Plan RECOMMENDATIONS: 1. Wean supplemental oxygen to maintain saturations at or above 90%. 2. Decadron 6 mg daily to complete 10 days of therapy. 3. Start remdesivir as ordered. 4. Continue empiric broad-spectrum antimicrobials. 5. Nephrology consultation to assist with hemodialysis needs. 6. Continue appropriate DVT prophylaxis. 7. Encourage incentive spirometer use and mobilize patient as tolerated. IMPRESSIONS: 1. Acute hypoxemic respiratory failure Appears secondary to COVID-19 with possible superimposed bacterial pneumonia. The patient has been initiated on appropriate broad-spectrum antimicrobial therapy. Plan to continue supplemental oxygen to maintain saturations at or above 90%. Given that her symptom onset was within 24 hours and she is currently requiring 8 L/min of supplemental oxygen, will initiate her on Decadron and remdesivir. The patient denies ever having been diagnosed with COPD previously. 2. End-stage renal disease on hemodialysis Consultation will be placed to nephrology to assist with hemodialysis needs. 3. History of coronary artery disease/heart failure with preserved ejection fraction/diabetes mellitus/hypertension/hyperlipidemia Complicates care, management, recovery and prognosis. Continue home medications as indicated. This note was generated with [employer]ravel dictation software. It may contain incorrect words, spelling, and punctuation that were not noted in checking the note before signing. HPI Consult Data Date of Consult: 12/14/23 HPI Narrative Reason for Consultation: Acute hypoxemic respiratory failure HPI Narrative: The patient is a 57-year-old female, with a history as outlined below, who presented to the emergency department on the morning of December 13 with vomiting and diarrhea, which the patient attributed to food that she ate last evening. The patient has no pre-existing pulmonary conditions, including COPD. It does appear that the patient was last admitted to the hospital in October 2023 with pneumonia. She was discharged home from the hospital at that time on 2 L/min via nasal cannula. The patient's medical history is significant for end-stage renal disease on hemodialysis, Thursday//Thursday. The patient denied any recent missed dialysis sessions. She also has a history of coronary artery disease, heart failure with preserved ejection fraction, diabetes mellitus, hypertension and hyperlipidemia. On presentation to the emergency department, the patient was noted to be afebrile and hemodynamically stable. Initial laboratory evaluation revealed a white blood cell count of 11,000. Hemoglobin and platelet count were stable. ABG was notable for a pH of 7.4 with a pCO2 of 42 and pO2 of 61. Chest x-ray demonstrated diffuse bilateral airspace disease. Subsequent COVID PCR was found to be positive. The patient was initiated on antimicrobial therapy and admitted to the medical intensive care unit for further management. [facility] Medical History Dependence on renal dialysis Easy bruising Dietary restriction History of edema Hx of cardiovascular stress test Hx of echocardiogram Cardiology follow-up encounter TIA (transient ischemic attack) Acute alteration in mental status Community acquired pneumonia ESRD (end stage renal disease) on dialysis Wears glasses Insulin dependent diabetes mellitus Low iron Former smoker Cardiology follow-up encounter Chronic heart failure with preserved ejection fraction (HFpEF) History of non-ST elevation myocardial infarction (NSTEMI) (01/20/21) Debility COVID-19 (01/20/21) Inability to walk Generalized weakness Non-STEMI (non-ST elevated myocardial infarction) (01/20/21) Ischemic cerebrovascular accident (CVA) (04/2018) Respiratory insufficiency Hypoxia Anxiety Bilateral carotid bruits Hyperlipidemia Malignant hypertension Headache Type 2 diabetes mellitus without complication Essential hypertension Atherosclerosis of coronary artery of [place] heart without angina pectoris GERD (gastroesophageal reflux disease) Depression History of renal calculi History of cholelithiasis Morbid obesity Acute renal injury due to circulatory failure Home Medications ?Medication ?Instructions ?Recorded ?Last Taken ?Type aspirin 81 mg chewable tablet 81 mg PO DAILY@0800 [facility] 07/15/18 04/26/23 History atorvastatin 80 mg tablet 80 mg PO QHS CHOLESTEROL 08/04/18 04/26/23 History torsemide 100 mg tablet 50 mg PO BID diuretic 04/14/19 04/26/23 History melatonin 5 mg tablet 5 mg PO HS PRN Sleep 08/03/20 01/19/21 History carvedilol 12.5 mg tablet 6.25 mg PO BID blood pressure 09/20/20 04/27/23 History acetaminophen 325 mg tablet 650 mg (2 x 325 mg) PO Q6H PRN PRN 10/03/20 Unknown Rx (Tylenol) Pain 1-10 Or Fever #0 tabs amlodipine 10 mg tablet 10 mg PO DAILY blood pressure 01/20/21 04/27/23 History insulin aspart U-100 100 unit/mL 5 unit subcut BID blood sugar 03/21/21 04/26/23 History (3 mL) subcutaneous pen (Novolog FlexPen U-100 Insulin aspart) insulin glargine U-300 conc 300 20 unit subcut BREAKFAST diabetes 03/21/21 04/26/23 History unit/mL (1.5 mL) subcutaneous pen (Toujeo SoloStar U-300 Insulin) gabapentin 300 mg capsule 300 mg PO TID PRN NEUROPATHY 12/10/22 Unknown History allopurinol 100 mg tablet 100 mg PO DAILY 01/13/23 04/26/23 History cholecalciferol (vitamin D3) 50 50 mcg PO DAILY 01/13/23 04/26/23 History mcg (2,000 unit) capsule ezetimibe 10 mg tablet 10 mg PO QHS 01/13/23 04/26/23 History hydralazine 100 mg tablet 100 mg PO TID 01/13/23 Unknown History vitamin B complex and vitamin C 1 cap PO DAILY 01/13/23 04/26/23 History no.20-folic acid 1 mg capsule ([place] Caps) vitamin B complex-vitamin C-folic 1 tab PO DAILY 01/13/23 04/26/23 History acid 0.8 mg tablet (Nephro-Todd) ipratropium 0.5 mg-albuterol 3 mg 3 ml inhalation Q8H COPD 11/21/23 Unknown Rx (2.5 mg base)/3 mL nebulization exacerbation/Pneumonia 14 days soln #180 mL nystatin 100,000 unit/gram topical 1 applic topical BID 14 days #1 11/21/23 Unknown Rx powder ([facility]) BOTTLE Allergy/AdvReac Type Severity Reaction Status Date / Time No Known Allergies Allergy Verified 12/14/23 06:14 Family History Mother Diabetes Heart disease Hypertension Father Hypertension Heart disease Brother Heart disease Hypertension Sister Heart disease Diabetes Surgical History History of surgery History of arteriovenostomy for renal dialysis (~03/2021) History of History of appendectomy History of cholecystectomy History of coronary artery stent placement (06/2016) History of left heart catheterization (05/27/21) Social History Smoking Status: Former smoker alcohol intake: never ROS ROS Narrative 10 systems were reviewed with pertinent positives as noted in the HPI above. Physical Exam Const alert, oriented x3 and no apparent distress General Appearance: cooperative HEENT normocephalic, head/scalp atraumatic and moist oral mucous membranes Eyes PERRL, EOMs intact bilaterally and conjunctivae normal Neck supple General: trachea midline Chest inspection of chest normal Resp normal respiratory effort Auscultation: diminished lung sounds Cardio regular rate and regular rhythm GI normal to inspection, nondistended, normoactive bowel sounds Extremity no clubbing, cyanosis or edema Skin no rashes or lesions noted Neuro CN's II-XII intact bilaterally, moves all extremities and no focal motor deficits Psych cooperative and affect normal Lab / Micro Data 12/14/23 06:41 12/14/23 06:41 Labs: Laboratory Results - last 24 hr 12/14/23 06:41: WBC 11.1 H, RBC 3.29 L, Hgb 10.0 L, Hct 32.5 L, MCV 98.8, MCH 30.4, MCHC 30.8 L, RDW Std Deviation 54.2 H, RDW Coeff of [place] 15.1 H, Plt Count 146 L, MPV 12.7 H, Immature Gran % (Auto) 1.300 H, Neut % (Auto) 86.4 H, Lymph % (Auto) 5.8 L, [place] % (Auto) 4.7, Eos % (Auto) 1.4, Baso % (Auto) 0.4, Absolute Neuts (auto) 9.6 H, Absolute Lymphs (auto) 0.64 L, Nucleated RBC % 0, Sodium 136, Potassium 5.2 H, Chloride 101, Carbon Dioxide 27.0, Anion Gap 8, BUN 58 H, Creatinine 5.67 H, Estim Creat Clear Calc 12.79, Est GFR (MDRD) Af Amer 10 L, Est GFR (MDRD) Non-Af 8 L, BUN/Creatinine Ratio 10.2, Glucose 285 H, Lactic Acid 0.8, Calcium 8.7, Magnesium 2.2, Total Bilirubin 0.80, Direct Bilirubin 0.24, AST 54 H, ALT 75 H, Alkaline Phosphatase 105, Troponin I High Sens 40, Total Protein 6.9, Albumin 3.3, Globulin 3.6, Lipase 48 Micro: Microbiology 12/14/23 07:14 Mucosa - Nose SARS-CoV-2, Influenza & RSV (PCR) - Final SARS-CoV-2 (COVID 19 PCR) ABG Data ABG results: ABG 12/14/23 07:57 Specimen Type ART Sample Site L Radial pH 7.40 Bicarbonate Actual 26.0 Total CO2 27 Base Excess 1 O2 Saturation 91 L O2 % 4.0 ABG pCO2 42.3 ABG pO2 61 L Lalito Test Positive O2 Delivery Device Cannula Vent Mode Not entered Imaging Radiology Impression Chest X-Ray 12/14/23 06:31 IMPRESSION: Bilateral airspace disease as described. Differential diagnosis to consider should include either pulmonary edema or bilateral pneumonia. Electronically Signed: David Painting MD at 8:27 EDT , Charges/Coding Visit Charges Inpatient E&M: 80258 Init Hosp L3
[2023-12-14] MEDS: 0.9% Normal Saline (250mL Bag) 250 ML 15 ML IV (09:57)
[2023-12-14 09:58] LABS: Alkaline Phosphatase 107 U/L (45-117)
[2023-12-14] MEDS: Azithromycin 500 MG in Dextrose 5%-Water (250mL Bag) 250 ML 250 MG IV (09:58)
[2023-12-14] MEDS: Heparin Injection (Vial) 5,000 UNIT/ML VIAL 5000 UNIT SC ×2 (10:00→21:12)
[2023-12-14] MEDS: Cholecalciferol (VIT D3) 25 MCG TABLET (1,000 UNITS) 50 MCG PO (10:01)
[2023-12-14] MEDS: Folic Acid/Vitamin B Comp W-C 1 Capsule 1 CAP PO (10:01)
[2023-12-14] MEDS: guaiFENesin 1,200 MG Tablet 1200 MG PO ×2 (10:01→21:12)
[2023-12-14] MEDS: Allopurinol 100 MG Tablet PO (10:01)
[2023-12-14] MEDS: dexAMETHasone 10 MG/ML Vial 6 MG IV (10:08)
[2023-12-14] MEDS: Furosemide 40 MG/4 ML Vial IV (10:08)
[2023-12-14] MEDS: Remdesivir 200 MG in 0.9% Normal Saline (250mL Bag) 210 ML 250 MG IV (11:39)
--- NOTE | 2023-12-14 12:32 | PCM.CONS.R ---
Assessment & Plan Assessment/Plan (1) ESRD (end stage renal disease) on dialysis: (2) Pneumonia: (3) COVID: PLAN: Plan This is a 57-year-old female with past medical history significant for ESRD who currently dialyzes via AV fistula Thursday schedule [facility] admitted to ICU for acute respiratory failure secondary to COVID-pneumonia. Nephrology consulted in view of ESRD management. Chest x-ray reviewed showing bilateral pneumonia and/or pulmonary edema. Patient is requiring high flow oxygen therefore we will plan ultrafiltration treatment today for fluid removal over around 2-1/2 hours and attempting 2 to 3 L fluid removal. Will likely plan hemodialysis tomorrow with fluid removal as patient/blood pressure tolerates. Patient has history of anemia of chronic disease, hemoglobin is 10. No need for KIM with dialysis today. Blood pressures acceptable on amlodipine and coreg. Pneumonia, COVID-positive on IV antibiotics vancomycin and Zosyn, started on IV steroids and remdesivir. Further orders as hospitalization evolves, thank you for allowing us to participate in the care of Ms. Antoine. HPI Consult Data Date of Consult: 12/14/23 HPI Narrative HPI Narrative: ZAYDA ANTOINE, is a 57 F with past medical history significant for ESRD who currently dialyzes on a Thursday schedule in [facility] who presented to emergency room with complaints of sudden onset of shortness of breath with severe hypoxia. Patient admitted to ICU for acute severe hypoxic respiratory failure secondary to COVID-19 pneumonia. Nephrology consulted in view of patient history of ESRD and for dialysis management. Patient is alert to name but has a hard time recalling recent events. Patient does not remember if she last dialyzed on Thursday at the kidney center. [facility] Medical History Dependence on renal dialysis Easy bruising Dietary restriction History of edema Hx of cardiovascular stress test Hx of echocardiogram Cardiology follow-up encounter TIA (transient ischemic attack) Acute alteration in mental status Community acquired pneumonia ESRD (end stage renal disease) on dialysis Wears glasses Insulin dependent diabetes mellitus Low iron Former smoker Cardiology follow-up encounter Chronic heart failure with preserved ejection fraction (HFpEF) History of non-ST elevation myocardial infarction (NSTEMI) (01/20/21) Debility COVID-19 (01/20/21) Inability to walk Generalized weakness Non-STEMI (non-ST elevated myocardial infarction) (01/20/21) Ischemic cerebrovascular accident (CVA) (04/2018) Respiratory insufficiency Hypoxia Anxiety Bilateral carotid bruits Hyperlipidemia Malignant hypertension Headache Type 2 diabetes mellitus without complication Essential hypertension Atherosclerosis of coronary artery of [place] heart without angina pectoris GERD (gastroesophageal reflux disease) Depression History of renal calculi History of cholelithiasis Morbid obesity Acute renal injury due to circulatory failure Home Medications ?Medication ?Instructions ?Recorded ?Last Taken ?Type aspirin 81 mg chewable tablet 81 mg PO DAILY@0800 HEART HEALTH 07/15/18 04/26/23 History atorvastatin 80 mg tablet 80 mg PO QHS CHOLESTEROL 08/04/18 04/26/23 History torsemide 100 mg tablet 50 mg PO BID diuretic 04/14/19 04/26/23 History melatonin 5 mg tablet 5 mg PO HS PRN Sleep 08/03/20 01/19/21 History carvedilol 12.5 mg tablet 6.25 mg PO BID blood pressure 09/20/20 04/27/23 History acetaminophen 325 mg tablet 650 mg (2 x 325 mg) PO Q6H PRN PRN 10/03/20 Unknown Rx (Tylenol) Pain 1-10 Or Fever #0 tabs amlodipine 10 mg tablet 10 mg PO DAILY blood pressure 01/20/21 04/27/23 History insulin aspart U-100 100 unit/mL 5 unit subcut BID blood sugar 03/21/21 04/26/23 History (3 mL) subcutaneous pen (Novolog FlexPen U-100 Insulin aspart) insulin glargine U-300 conc 300 20 unit subcut BREAKFAST diabetes 03/21/21 04/26/23 History unit/mL (1.5 mL) subcutaneous pen (Toujeo SoloStar U-300 Insulin) gabapentin 300 mg capsule 300 mg PO TID PRN NEUROPATHY 12/10/22 Unknown History allopurinol 100 mg tablet 100 mg PO DAILY 01/13/23 04/26/23 History cholecalciferol (vitamin D3) 50 50 mcg PO DAILY 01/13/23 04/26/23 History mcg (2,000 unit) capsule ezetimibe 10 mg tablet 10 mg PO QHS 01/13/23 04/26/23 History hydralazine 100 mg tablet 100 mg PO TID 01/13/23 Unknown History vitamin B complex and vitamin C 1 cap PO DAILY 01/13/23 04/26/23 History no.20-folic acid 1 mg capsule ([place] Caps) vitamin B complex-vitamin C-folic 1 tab PO DAILY 01/13/23 04/26/23 History acid 0.8 mg tablet (Nephro-Todd) ipratropium 0.5 mg-albuterol 3 mg 3 ml inhalation Q8H COPD 11/21/23 Unknown Rx (2.5 mg base)/3 mL nebulization exacerbation/Pneumonia 14 days soln #180 mL nystatin 100,000 unit/gram topical 1 applic topical BID 14 days #1 11/21/23 Unknown Rx powder (Nyamyc) BOTTLE Allergy/AdvReac Type Severity Reaction Status Date / Time No Known Allergies Allergy Verified 12/14/23 06:14 Family History Mother Diabetes Heart disease Hypertension Father Hypertension Heart disease Brother Heart disease Hypertension Sister Heart disease Diabetes Surgical History History of surgery History of arteriovenostomy for renal dialysis (~03/2021) History of History of appendectomy History of cholecystectomy History of coronary artery stent placement (06/2016) History of left heart catheterization (05/27/21) Social History Smoking Status: Former smoker alcohol intake: never ROS ROS Narrative As in HPI and past medical history. Difficult to obtain Physical Exam Narrative Alert to name, no apparent distress S1, S2, RRR Diminished breath sounds with rales Abdomen soft, nontender No pitting edema AV fistula right arm positive thrill and bruit Lab / Micro Data 12/14/23 06:41 12/14/23 06:41 Labs: Laboratory Results - last 24 hr 12/14/23 06:41: WBC 11.1 H, RBC 3.29 L, Hgb 10.0 L, Hct 32.5 L, MCV 98.8, MCH 30.4, MCHC 30.8 L, RDW Std Deviation 54.2 H, RDW Coeff of Chichi 15.1 H, Plt Count 146 L, MPV 12.7 H, Immature Gran % (Auto) 1.300 H, Neut % (Auto) 86.4 H, Lymph % (Auto) 5.8 L, [place] % (Auto) 4.7, Eos % (Auto) 1.4, Baso % (Auto) 0.4, Absolute Neuts (auto) 9.6 H, Absolute Lymphs (auto) 0.64 L, Nucleated RBC % 0, Sodium 136, Potassium 5.2 H, Chloride 101, Carbon Dioxide 27.0, Anion Gap 8, BUN 58 H, Creatinine 5.67 H, Estim Creat Clear Calc 12.79, Est GFR (MDRD) Af Amer 10 L, Est GFR (MDRD) Non-Af 8 L, BUN/Creatinine Ratio 10.2, Glucose 285 H, Lactic Acid 0.8, Calcium 8.7, Magnesium 2.2, Total Bilirubin 0.80, Direct Bilirubin 0.24, AST 54 H, ALT 75 H, Alkaline Phosphatase 105, Troponin I High Sens 40, Total Protein 6.9, Albumin 3.3, Globulin 3.6, Lipase 48 12/14/23 06:46: Alkaline Phosphatase 107 Micro: Microbiology 12/14/23 07:14 Mucosa - Nose SARS-CoV-2, Influenza & RSV (PCR) - Final SARS-CoV-2 (COVID 19 PCR) ABG Data ABG results: ABG 12/14/23 07:57 Specimen Type ART Sample Site L Radial pH 7.40 Bicarbonate Actual 26.0 Total CO2 27 Base Excess 1 O2 Saturation 91 L O2 % 4.0 ABG pCO2 42.3 ABG pO2 61 L Lalito Test Positive O2 Delivery Device Cannula Vent Mode Not entered Imaging Radiology Impression Chest X-Ray 12/14/23 06:31 IMPRESSION: Bilateral airspace disease as described. Differential diagnosis to consider should include either pulmonary edema or bilateral pneumonia. Electronically Signed: David Painting MD at 8:27 EDT ,
[2023-12-14] MEDS: Piperacil/Tazobactam 3.375 GM in 0.9% Normal Saline (50mL MB+) 50 ML IV ×2 (12:36→21:11)
[2023-12-14] MEDS: Insulin Lispro 100 UNIT/ML INSULN.PEN 8 UNIT SC ×2 (13:21→17:39)
[2023-12-14] MEDS: Insulin Lispro 100 UNIT/ML INSULN.PEN SC ×2 (13:21→17:38)
--- NOTE | 2023-12-14 14:50 | PRO.PCM_ITS ---
Procedure Report Date of Procedure: 12/14/23 Assessment & Plan Assessment/Plan (1) Difficult intravenous access: PLAN: Midline insertion in left upper extremity: Patient identity was verified with two patient identifiers. Hands were sanitized. The patient was positioned supine with left arm at 90 degrees. The patient's upper arm vasculature was assessed using ultrasound, and the left basilic vein was externally marked. An external measurement was obtained of 11 cm. Cap, mask, and prep gloves were donned. The underdrape was placed under the patient's arm. The site was prepped with chlorhexidine, and tourniquet was loosely applied. Prep gloves were discarded, and hands were sanitized. The sterile kit was opened with additional supplies dropped in. Sterile gown and gloves were donned, and the patient was draped. The sterile kit was assembled with all needle, introducer, connector, and catheter flushed with sterile normal saline. The marked site of insertion was anesthetized with 1% lidocaine. Patient tolerated well. The left basilic vein was then accessed using u ltrasound guidance and guidewire was inserted to safety tom. The tourniquet was released. The access needle was removed while securing the guidewire in place. The site was again anesthetized with 1% lidocaine, prior to insertion of introducer sheath and dilator. Patient tolerated well. The catheter was trimmed to a length of 11 cm, and again flushed with sterile normal saline. The catheter was then inserted through the introducer sheath, slowly. There was no resistance on insertion. The introducer sheath was retracted and peeled away, incrementally, while keeping the catheter secured. The catheter was fully inserted leaving 0 cm external. Blood return was verified and flushed needless connector was attached. The midline was flushed with sterile normal saline in a pulsatile fashion and clamped. Total sterile flushes used for the insertion was two 10 ml syringes, one from the kit. Finally, the insertion site was cleaned with chlorhexidine, and the catheter was secured using a StatLock. The site was covered with a Tegaderm CHG Dressing. Baseline arm circumference was obtained at the insertion site and measured 37cm. The primary nurse is aware that the midline is ready for use. REF: [id number] LOT: [id number] Procedures Radiology Radiology Access Procedures: MIDL
[2023-12-14] MEDS: 0.9% Saline Lock 10 ML Syringe IV (15:10)
[2023-12-14] MEDS: 0.9% Normal Saline 1,000 ML IV.SOLN. 1000 ML OPERA.SITE (15:10)
[2023-12-14] MEDS: amLODIPine 10 MG Tablet PO (15:58)
[2023-12-14] MEDS: Carvedilol 6.25 MG Tablet PO (16:01)
[2023-12-14 17:18] LABS: Bedside Glucose 317 mg/dL (74-106)
[2023-12-14 18:13] LABS: Bedside Glucose 231 mg/dL (74-106)
[2023-12-14] MEDS: hydrALAZINE 50 MG Tablet PO (21:12)
[2023-12-14] MEDS: Ezetimibe 10 MG Tablet PO (21:12)
[2023-12-14] MEDS: Atorvastatin Calcium 80 MG Tablet PO (21:12)
[2023-12-14 21:45] LABS: Bedside Glucose 139 mg/dL (74-106)
--- NOTE | 2023-12-14 21:52 | NURSING ---
This RN spoke with son, Fredrick to provide him with an update. Jaclyn was able to tell me that she would like him updated, as he is not listed in her chart currently. He was updated on her current status and vital signs.
[2023-12-15] VITALS (36 sets, daily range): BP systolic 107–339; BP diastolic 51–90; PULSE 72–91; RESP 13–23; TEMP 36.4–36.9; O2SAT 92–99; BMI 44.4; BMI 44.0
[2023-12-15] MEDS: Ipratropium/Albuterol Sulfate 3 ML AMPUL.NEB INHALATION ×4 (01:56→19:48)
[2023-12-15] MEDS: hydrALAZINE 50 MG Tablet PO ×3 (04:55→22:21)
[2023-12-15 05:14] LABS: Absolute Lymphocyte Count 0.51 X10^3/uL (0.83-4.51); Absolute Neutrophil Count 10.6 X10^3/uL (2.0-7.7); Basophil# 0.01 X10^3/uL; Basophil% 0.1 % (0-1); Hematocrit 29.6 % (37-47); Hemoglobin 9.3 g/dL (12.0-15.0); Lymphocyte # 0.51 X10^3/ul (0.83-4.51); Lymphocyte % 4.4 % (19-41); Mean Corp Hgb Conc 31.4 g/dL (32-36); Mean Corpuscular Hgb 30.9 pg (27.0-32.0); Mean Corpuscular Volume 98.3 fL (81-99); Mean Platelet Vol. 12.8 fl (6.2-12.0); Monocyte# 0.43 X10^3/uL; Monocyte% 3.7 % (0-10); NRBC Flagged by Analyzer 0.2 % (0-5); Neutrophil # 10.63 X10^3/uL (2.7-7.7); Neutrophil % 90.9 % (47-70); POSITIVE DIFFERENTIAL YES; Platelet Count 161 K/mm3 (150-450); RBC Distribution Width CV 15.1 % (11.6-14.6); RBC Distribution Width SD 54.2 fl (35.1-43.9); Red Blood Count 3.01 M/mm3 (4.2-5.4); White Blood Count 11.7 K/mm3 (4.4-11.0)
[2023-12-15 05:32] LABS: ALB/GLOB Ratio 0.9 RATIO (0.9-2.4); AST(SGOT) 32 U/L (15-37); Alanine Aminotransfer ALT/SGPT 52 U/L (13-56); Albumin, Serum 2.8 g/dL (3.2-5.0); Alkaline Phosphatase 83 U/L (45-117); Anion Gap 11 (5-15); BUN 77 mg/dL (7-18); BUN/Creat Ratio 11.6 RATIO (10-20); Calcium,Total 8.7 mg/dL (8.5-10.1); Chloride 102 mmol/L (98-107); Creatinine, Serum 6.64 mg/dL (0.55-1.02); EST Glomerular Filtration Rate 7 mL/min (>60); Est Glom Filt Rate - Afr Amer 8 mL/min (>60); Estimated Creatinine Clearance 10.35 ml/min; Globulin 3.2 g/dL (2.2-4.2); Glucose 198 mg/dL (74-106); Potassium 5.5 mmol/L (3.5-5.1); Sodium Level 137 mmol/L (136-145); Vancomycin, Random Level 25.7 ug/mL (0.0-15.0)
--- NOTE | 2023-12-15 05:52 | PCM.RX.CS ---
Consult Antibiotic Management Pharmacy has been consulted to manage selected antibiotic: Vancomycin Type of Intervention Type of Consult: Follow-up Suspected Infection Suspected Infection: Pneumonia Labs Labs: Sodium 137 mmol/L (136-145) 12/15/23 04:56 Potassium 5.5 mmol/L (3.5-5.1) H 12/15/23 04:56 Chloride 102 mmol/L (98-107) 12/15/23 04:56 Carbon Dioxide 24.0 mmol/L (21.0-32.0) 12/15/23 04:56 Anion Gap 11 (5-15) 12/15/23 04:56 BUN 77 mg/dL (7-18) H 12/15/23 04:56 Creatinine 6.64 mg/dL (0.55-1.02) H 12/15/23 04:56 Est GFR (MDRD) Af Amer 8 mL/min (>60) L 12/15/23 04:56 Est GFR (MDRD) Non-Af 7 mL/min (>60) L 12/15/23 04:56 BUN/Creatinine Ratio 11.6 RATIO (10-20) 12/15/23 04:56 Glucose 198 mg/dL (74-106) H 12/15/23 04:56 Random Vancomycin 25.7 ug/mL (0.0-15.0) H 12/15/23 04:56 Microbiology Microbiology: Microbiology 12/14/23 07:14 Mucosa - Nose SARS-CoV-2, Influenza & RSV (PCR) - Final SARS-CoV-2 (COVID 19 PCR) Dosing Weight Weight used for dosin.6 kg Estimated Creatinine Clearance Estimated Creatinine Clearance: 10.4 Goal Trough Goal Trough: 15-20 mcg/mL Pharmacy Plan for Drug Dosing Pharmacy Plan for Drug Dosing: Random vancomycin level drawn 12/15/23 @0532 was high at 25.7. No additional dose will be warranted yet. Another random vanco level will be drawn pre-HD on 12/17/23. Pharmacy Service will continue to monitor and adjust dosing as required. Follow-Up Labs Follow-Up Labs: Trough: Vancomycin (random) Date/Time Labs Ordered Labs to be done on [date and time ordered]: 12/17/23 @0600 (random)
--- NOTE | 2023-12-15 07:17 | PCM.PN.INT ---
Assessment & Plan Assessment/Plan (1) COVID: PLAN: Plan RECOMMENDATIONS: 1. Wean supplemental oxygen to maintain saturations at or above 90%. 2. Decadron 6 mg daily to complete 10 days of therapy. 3. Continue remdesivir to complete treatment course. 4. Continue empiric broad-spectrum antimicrobials. 5. Nephrology following to assist with hemodialysis needs. 6. Continue appropriate DVT prophylaxis. 7. Encourage incentive spirometer use and mobilize patient as tolerated. 8. If the patient remains stable after dialysis today, she can be transferred out of the intensive care unit from my perspective. IMPRESSIONS: 1. Acute hypoxemic respiratory failure Appears secondary to COVID-19 with possible superimposed bacterial pneumonia. The patient has been initiated on appropriate broad-spectrum antimicrobial therapy. Plan to continue supplemental oxygen to maintain saturations at or above 90%. Given her presenting hypoxemia and onset of symptoms within 48 hours of presentation, the patient was started on remdesivir and will be continued on Decadron to complete 10 days of therapy. The patient denied ever having been diagnosed with COPD previously. 2. End-stage renal disease on hemodialysis Nephrology following to assist with hemodialysis needs. 3. History of coronary artery disease/heart failure with preserved ejection fraction/diabetes mellitus/hypertension/hyperlipidemia Complicates care, management, recovery and prognosis. Continue home medications as indicated. Dietary advancement per speech therapy recommendations. This note was generated with [employer] dictation software. It may contain incorrect words, spelling, and punctuation that were not noted in checking the note before signing. Subjective Subjective The patient was seen and examined at the bedside this morning. Events from the last 24 hours have been reviewed. The patient is currently afebrile, hemodynamically stable and maintaining appropriate oxygen saturations on heated high flow with an FiO2 requirement of 43% and flow rate of 40 L/min. The patient tolerated dialysis yesterday with 2.9 L of fluid removed. There are plans to proceed with dialysis again today. White count this morning was noted to be 12,000 with a hemoglobin of 9.3 g/dL. Objective Data Objective Data The patient's most recent lab work, culture data and imaging studies have all been personally reviewed. COVID PCR was positive on December 13. Vital Signs: Vital Signs Temp Pulse Resp BP Pulse Ox O2 Del Method O2 Flow Rate 97.6 F L 82 18 117/52 L 97 Airvo 40 12/15/23 05:00 12/15/23 07:00 12/15/23 07:00 12/15/23 07:00 12/15/23 07:00 12/15/23 07:00 12/15/23 07:00 FiO2 43 12/15/23 07:00 Oxygen Flow Rate (L/min) 40 Oxygen Delivery Method Airvo Weight: 235 lb 0.204 oz Body Mass Index (BMI) 44.4 Intake & Output: Intake and Output for Last 24 Hours 12/13/23 12/14/23 12/15/23 23:59 23:59 23:59 Intake Total 1315.5 / 1315.5 100 / 100 Output Total 2950 / 2950 Balance -1634.5 / -1634.5 100 / 100 Lab / Micro Data Attestation: I reviewed the patient's lab results. 12/15/23 04:56 12/15/23 04:56 Labs: Laboratory Results - last 24 hr 12/14/23 06:41: Sodium 136, Potassium 5.2 H, Chloride 101, Carbon Dioxide 27.0, Anion Gap 8, BUN 58 H, Creatinine 5.67 H, Estim Creat Clear Calc 12.79, Est GFR (MDRD) Af Amer 10 L, Est GFR (MDRD) Non-Af 8 L, BUN/Creatinine Ratio 10.2, Glucose 285 H, Lactic Acid 0.8, Calcium 8.7, Magnesium 2.2, Total Bilirubin 0.80, Direct Bilirubin 0.24, AST 54 H, ALT 75 H, Alkaline Phosphatase 105, Troponin I High Sens 40, Total Protein 6.9, Albumin 3.3, Globulin 3.6, Lipase 48 12/14/23 06:46: Alkaline Phosphatase 107 12/14/23 12:31: POC Glucose 317 H 12/14/23 17:37: POC Glucose 231 H 12/14/23 21:10: POC Glucose 139 H 12/15/23 04:56: WBC 11.7 H, RBC 3.01 L, Hgb 9.3 L, Hct 29.6 L, MCV 98.3, MCH 30.9, MCHC 31.4 L, RDW Std Deviation 54.2 H, RDW Coeff of Chichi 15.1 H, Plt Count 161, MPV 12.8 H, Immature Gran % (Auto) 0.900, Neut % (Auto) 90.9 H, Lymph % (Auto) 4.4 L, [place] % (Auto) 3.7, Eos % (Auto) 0.0, Baso % (Auto) 0.1, Absolute Neuts (auto) 10.6 H, Absolute Lymphs (auto) 0.51 L, Nucleated RBC % 0.2, Sodium 137, Potassium 5.5 H, Chloride 102, Carbon Dioxide 24.0, Anion Gap 11, BUN 77 H, Creatinine 6.64 H, Estim Creat Clear Calc 10.35, Est GFR (MDRD) Af Amer 8 L, Est GFR (MDRD) Non-Af 7 L, BUN/Creatinine Ratio 11.6, Glucose 198 H, Calcium 8.7, Total Bilirubin 0.90, AST 32, ALT 52, Alkaline Phosphatase 83, Total Protein 6.0 L, Albumin 2.8 L, Globulin 3.2, Albumin/Globulin Ratio 0.9, Random Vancomycin 25.7 H Micro: Microbiology 12/14/23 07:14 Mucosa - Nose SARS-CoV-2, Influenza & RSV (PCR) - Final SARS-CoV-2 (COVID 19 PCR) ABG Data ABG results: ABG 12/14/23 07:57 Specimen Type ART Sample Site L Radial pH 7.40 Bicarbonate Actual 26.0 Total CO2 27 Base Excess 1 O2 Saturation 91 L O2 % 4.0 ABG pCO2 42.3 ABG pO2 61 L Lalito Test Positive O2 Delivery Device Cannula Vent Mode Not entered Radiography Diagnostic Testing: Radiology Impression Chest X-Ray 12/14/23 06:31 IMPRESSION: Bilateral airspace disease as described. Differential diagnosis to consider should include either pulmonary edema or bilateral pneumonia. Electronically Signed: David Painting MD at 8:27 EDT , Physical Exam Const alert, oriented x3 and no apparent distress General Appearance: cooperative HEENT normocephalic, head/scalp atraumatic and moist oral mucous membranes Eyes PERRL, EOMs intact bilaterally and conjunctivae normal Neck supple General: trachea midline Chest inspection of chest normal Resp normal respiratory effort Auscultation: diminished lung sounds Cardio regular rate and regular rhythm GI normal to inspection, nondistended, normoactive bowel sounds Extremity no clubbing, cyanosis or edema Skin no rashes or lesions noted Neuro CN's II-XII intact bilaterally, moves all extremities and no focal motor deficits Psych cooperative and affect normal Charges/Coding Visit Charges Inpatient E&M: 48242 Subs Hosp L3
[2023-12-15 07:58] LABS: Hemoglobin A1c 7.1 % (3.8-5.6)
[2023-12-15] MEDS: Insulin Lispro 100 UNIT/ML INSULN.PEN 8 UNIT SC ×3 (08:47→17:15)
[2023-12-15] MEDS: Insulin Lispro 100 UNIT/ML INSULN.PEN SC ×4 (08:47→22:19)
[2023-12-15] MEDS: Aspirin 81 MG TAB.CHEW PO (08:49)
[2023-12-15] MEDS: Folic Acid/Vitamin B Comp W-C 1 Capsule 1 CAP PO (08:49)
[2023-12-15] MEDS: amLODIPine 10 MG Tablet PO (08:49)
[2023-12-15] MEDS: Allopurinol 100 MG Tablet PO (08:49)
[2023-12-15] MEDS: Heparin Injection (Vial) 5,000 UNIT/ML VIAL 5000 UNIT SC ×2 (08:50→22:21)
[2023-12-15] MEDS: Cholecalciferol (VIT D3) 25 MCG TABLET (1,000 UNITS) 50 MCG PO (08:50)
[2023-12-15] MEDS: guaiFENesin 1,200 MG Tablet 1200 MG PO ×2 (08:50→22:21)
[2023-12-15] MEDS: Carvedilol 6.25 MG Tablet PO ×2 (08:50→16:48)
--- NOTE | 2023-12-15 09:10 | PCM.PN.HOSP ---
Reason for Visit Reason for Visit: Diagnoses Pneumonia, unspecified organism (12/14/23) Chronic obstructive pulmonary disease with (acute) exacerbation (12/14/23) COVID-19 (12/14/23) Other specified health status (12/14/23) Objective Data Objective Data Vital Signs: Vital Signs Temp Pulse Resp BP Pulse Ox O2 Del Method O2 Flow Rate 97.6 F L 79 16 117/52 L 99 Nasal Cannula 4 12/15/23 05:00 12/15/23 07:23 12/15/23 07:23 12/15/23 07:00 12/15/23 07:23 12/15/23 07:23 12/15/23 07:23 FiO2 43 12/15/23 07:00 Oxygen Flow Rate (L/min) 4 Oxygen Delivery Method Nasal Cannula Weight: 235 lb 0.204 oz Body Mass Index (BMI) 44.4 Intake & Output: Intake and Output for Last 24 Hours 12/13/23 12/14/23 12/15/23 23:59 23:59 23:59 Intake Total 1315.5 / 1315.5 100 / 100 Output Total 2950 / 2950 Balance -1634.5 / -1634.5 100 / 100 Lab / Micro Data 12/15/23 04:56 12/15/23 04:56 Labs: Laboratory Results - last 24 hr 12/14/23 06:41: Magnesium 2.2 12/14/23 06:46: Alkaline Phosphatase 107 12/14/23 12:31: POC Glucose 317 H 12/14/23 17:37: POC Glucose 231 H 12/14/23 21:10: POC Glucose 139 H 12/15/23 04:56: WBC 11.7 H, RBC 3.01 L, Hgb 9.3 L, Hct 29.6 L, MCV 98.3, MCH 30.9, MCHC 31.4 L, RDW Std Deviation 54.2 H, RDW Coeff of Chichi 15.1 H, Plt Count 161, MPV 12.8 H, Immature Gran % (Auto) 0.900, Neut % (Auto) 90.9 H, Lymph % (Auto) 4.4 L, [place] % (Auto) 3.7, Eos % (Auto) 0.0, Baso % (Auto) 0.1, Absolute Neuts (auto) 10.6 H, Absolute Lymphs (auto) 0.51 L, Nucleated RBC % 0.2, Sodium 137, Potassium 5.5 H, Chloride 102, Carbon Dioxide 24.0, Anion Gap 11, BUN 77 H, Creatinine 6.64 H, Estim Creat Clear Calc 10.35, Est GFR (MDRD) Af Amer 8 L, Est GFR (MDRD) Non-Af 7 L, BUN/Creatinine Ratio 11.6, Glucose 198 H, Hemoglobin A1c 7.1 H, Calcium 8.7, Total Bilirubin 0.90, AST 32, ALT 52, Alkaline Phosphatase 83, Total Protein 6.0 L, Albumin 2.8 L, Globulin 3.2, Albumin/Globulin Ratio 0.9, Random Vancomycin 25.7 H Micro: Microbiology 12/14/23 07:14 Mucosa - Nose SARS-CoV-2, Influenza & RSV (PCR) - Final SARS-CoV-2 (COVID 19 PCR) Physical Exam Narrative Overall patient is feeling better. On high flow oxygen. She said her sister gave something which she ate and had GI upset with vomiting and diarrhea. She denies shortness of breath or chest pain and feels better. Patient feels much better. On high flow oxygen. Patient states her sister physical exam General: Awake, alert and oriented x 3 HEENT: Atraumatic, PERRLA, EOMI, Normocephalic Oral: No Gingival or Mucosal Lesions/ Ulcerations Neck: Supple, No JVD, Negative Carotid Bruits Chest wall/Lungs: Air entry diminished in all lung field. Mild Biocor crepitation Cardiovascular: sinus rhythm, Normal S1, Normal S2, No M/G/R Abdomen: Bowel Sounds Present, Soft, Non Tender, Non-Distended : Makes some urine. On hemodialysis. No dysuria. No renal angle tenderness. No suprapubic tenderness. Extremities: Mild bilateral pitting edema, Capillary Refill Less than 3 Seconds Skin: No rashes, No breakdown Musculoskeletal: No Tenderness to Palpation of Joints or Extremities Neurological: Cranial nerves II-XII grossly intact, DTR 2+/4. Nonfocal exam. Psych/Mental Status: flat affect. She talks but does not make much sense. Assessment & Plan Assessment/Plan (1) Pneumonia: (2) COPD exacerbation: PLAN: Plan This is 57-year-old female with multiple comorbidities admitted with acute onset of shortness of breath severe hypoxia and cough 1. Acute severe hypoxic respiratory failure due to bilateral COVID-19 pneumonia: Chest x-ray initially reviewed but not officially reported. It shows bilateral patchy and airspace consolidation in mid to lower lung gilmore. Twelve-lead EKG shows sinus rhythm 84 bpm, QTc 422 ms. First-degree AV block. Patient is being admitted in ICU. ABG 7.40/42 point , pulse ox 91% on 4 L of oxygen. Advised to put to increase FiO2 high flow oxygen/Airvo. Pneumonia workup ordered. Started on empiric antibiotic IV Zosyn and vancomycin.I suspect patient might have aspiration pneumonia too. Triple PCR came Positive for COVID only, rest RSV and flu are negative. Started on IV remdesivir and dexamethasone. 12/14: Patient overall feeling better on high flow oxygen. Seen by manager of care. Patient is downgraded to PCU. Serum magnesium 2.2. Alkaline phosphatase 107. 2. Acute encephalopathy probably metabolic/infectious etiology: Treat underlying disorder. 12/14: Acute encephalopathy resolved. She is fully awake and alert. She was talking to her son on phone and said she wants to get out of here. 3. Suspicion of aspiration/aspiration pneumonia: During previous admission speech therapy was consulted and evaluated the patient and no aspiration or dysphagia concern was found. Consult to speech therapy. 12/14: Patient is going for cookie swallow study. 4. ESRD on hemodialysis TTS with mild hyperkalemia: Reimbursement Coordinator Dr. Granger has been consulted.AV fistula on right forearm. Mild hyperkalemia, K. 5.2 BUN/creatinine 50/5.67. Bicarb 27 anion gap 8. Sodium 136. 12/14: Patient had shortness of dialysis yesterday. Dialysis as per meat products demonstrator recommendation 5. CAD: Patient denies chest pain/pressure. Had PCI in the past. Continue home aspirin statin Coreg. Not on TAYLOR or ARB 6. Hypertension and dyslipidemia: BP was elevated in ED 172/74. Patient on antihypertensive medication at home continued. 7. Cerebrovascular disease with previous stroke in 2019 with? vascular dementia-complicates care 8. DM type II: Glucose 285. Accu-Chek before meals and at bedtime with Humalog sliding scale coverage and hypoglycemia protocol. Home dose of Lantus and short-acting insulin continued 12/14 A1c 7.1%. Living will/advanced directive/end of life care: Patient does not have living will or advanced directive. As per the sister at the bedside, patient has power of commercial real estate attorney for health, her daughter and herself. After discussion of benefits/risks procedures involved with full code, DNR CC arrest and DNR CC, the patient and her sister opted for full code. Patient does want artificial life support including intubation, tube feed, ventilator and/chest compression, central venous catheter, vasopressor and DC shock if needed Total time spent in [id number] encounter in discussion of advanced directive 17 minutes. Laboratory Results 12/14/23 06:41: WBC 11.1 H, RBC 3.29 L, Hgb 10.0 L, Hct 32.5 L, MCV 98.8, MCH 30.4, MCHC 30.8 L, RDW Std Deviation 54.2 H, RDW Coeff of Chichi 15.1 H, Plt Count 146 L, MPV 12.7 H, Immature Gran % (Auto) 1.300 H, Neut % (Auto) 86.4 H, Lymph % (Auto) 5.8 L, [place] % (Auto) 4.7, Eos % (Auto) 1.4, Baso % (Auto) 0.4, Absolute Neuts (auto) 9.6 H, Absolute Lymphs (auto) 0.64 L, Nucleated RBC % 0, Sodium 136, Potassium 5.2 H, Chloride 101, Carbon Dioxide 27.0, Anion Gap 8, BUN 58 H, Creatinine 5.67 H, Estim Creat Clear Calc 12.79, Est GFR (MDRD) Af Amer 10 L, Est GFR (MDRD) Non-Af 8 L, BUN/Creatinine Ratio 10.2, Glucose 285 H, Lactic Acid 0.8, Calcium 8.7, Total Bilirubin 0.80, Direct Bilirubin 0.24, AST 54 H, ALT 75 H, Alkaline Phosphatase 105, Troponin I High Sens 40, Total Protein 6.9, Albumin 3.3, Globulin 3.6, Lipase 48 12/14/23 07:57: Specimen Type ART, Sample Site L Radial, pH 7.40, Bicarbonate Actual 26.0, Total CO2 27, Base Excess 1, O2 Saturation 91 L, O2 % 4.0, ABG pCO2 42.3, ABG pO2 61 L, Lalito Test Positive, O2 Delivery Device Cannula, Vent Mode Not entered Charges/Coding Visit Charges Inpatient E&M: 05212 Subs Hosp L2
[2023-12-15 09:30] LABS: Bedside Glucose 190 mg/dL (74-106)
--- NOTE | 2023-12-15 11:13 | CASEMGMT ---
Social Work Pt's continuous pillowcase cutter from [facility], Casie Arevalo([phone]) left a message for SW to return call. SW called Casie back, message left. As per RN, pt's sister Stephy called in and said that pt cannot come home and she will not pick her up if she is discharged tomorrow. Pt's POA is actually her daughter Madi, then her son in law and June is listed third. Pt lives w/June however. SW called daughter Madi([phone]) in regard to discharge plan for pt. Madi reiterated that pt's sister Stephy does not want pt coming back home until she is better. Madi said she does not want pt going home and then returning to the hospital again, this is already her second time here in a month. We spoke about pt going to a long-term facility as a possibility, Madi states she already told pt she is going and pt is agreeable. She states pt does not have a preference for where she goes. Madi states that pt's sister Stephy has a couple of places in mind already, and is fine w/SW working w/June for placement. She does state however that her brother Kvng is not to know where pt goes after the hospital stay, she states he is upset about not being on the POA document. RAN did explain to Madi will look into the places that Stephy is thinking of, will need to see if they take pt's insurance and if they will take a pt w/COVID. Madi states understanding. SW will call June shortly to review SNF options. LA Leary
--- NOTE | 2023-12-15 11:23 | CASEMGMT ---
Discharge Planning A list of SNF?providers including quality and resource use data and consistent with the patient's preferred geographic region, medical needs, and insurance network was created in CarePort Guide.? This list was provided to the RAN. GERALD Walton
[2023-12-15 12:20] LABS: Bedside Glucose 236 mg/dL (74-106)
--- NOTE | 2023-12-15 12:22 | CASEMGMT ---
Addendum entered by Aleta Jarrett 12/15/23 12:50: Social Work RAN called pt's sister June to get clarification on pt's dialysis. Pt goes to [facility] in [place] on Thursday, and Thursday, and [facility] takes pt to and from dialysis. Pt's sister did explain to SW she does not want pt going to the senior living permanently, just for a couple of weeks. SW will continue to follow. LA Leary Original Note: Social Work SW spoke w/Casie, pt's [facility] lining caser. She states pt gets home delivered meals, goes to [facility] 5 days per seek. She asked that SW send discharge instructions once pt is discharged, to [phone]. SW did let Casie know pt will likely be going to SNF. Casie explained that through Waiver, pt will automatically qualify for SNF. SW called pt's sister June in regard to discharge plan. June explained that she is fine w/pt coming home when she is medically ready. She states pt was just in the hospital and came home after three days, now pt has COVID and pneumonia. June explains she is going for open heart surgery next week and can't risk getting COVID. SW explained we can look into pt going to a senior living, explained spoke w/daughter Madi who had indicated June had some ideas of where she wanted pt to go. SW reviewed the [facility] list of SNF in pt's insurance network, in pt's preferred geographic area, and complete w/quality and resource use data. SW did explain that we will have to see which places will take pt since she has COVID. Pt's sister agreeable to RAN sending referrals to 1. [facility] 2. [facility] and 3. [facility]. RAN explained we will make the referrals and let her know. SW asked d/c materials planning analyst Rima to send the referrals, will continue to follow. LA Leary
[2023-12-15] MEDS: Insulin Glargine-YFGN 100 UNIT/ML Pen 15 UNIT SC (12:41)
[2023-12-15] MEDS: dexAMETHasone 10 MG/ML Vial 6 MG IV (12:45)
--- NOTE | 2023-12-15 12:56 | CASEMGMT ---
Addendum entered by Rima Camacho 12/15/23 16:29: [facility] has accepted. [facility] asked to cancel referral. Pts dialysis will need switched to [facility]. SW and RN TAUTM will be notified. Rima Camacho DC Planning Asst. Addendum entered by Rima Camacho 12/15/23 16:17: Pts sister, June, updated on current status of referrals. She would like referral sent to [facility] and wishes to proceed with them if they are able to accept. Referral sent to [facility]. Rima Camacho DC Planning Asst. Addendum entered by Rima Camacho 12/15/23 14:47: [facility] has declined. CL stated that their sister facility, [facility], has private rooms and in-house dialysis through [facility]. SW updated. Awaiting response from [facility]. Rima Camacho DC Planning Asst. Original Note: Discharge Planning Referral sent via Careport to [facility], and [facility]. Rima Camacho DC Planning Asst.
[2023-12-15] MEDS: 0.9% Normal Saline 1,000 ML IV.SOLN. 1000 ML OPERA.SITE (13:35)
[2023-12-15] MEDS: 0.9% Saline Lock 10 ML Syringe IV (13:35)
[2023-12-15] MEDS: Piperacil/Tazobactam 3.375 GM in 0.9% Normal Saline (50mL MB+) 50 ML IV (14:14)
--- NOTE | 2023-12-15 14:36 | PCM.PN.REN ---
Subjective Subjective seen on HD Objective Data Objective Data Vital Signs: Vital Signs Temp Pulse Resp BP Pulse Ox O2 Del Method O2 Flow Rate 97.6 F L 81 16 107/60 98 High Flow 2 12/15/23 12:00 12/15/23 13:20 12/15/23 13:20 12/15/23 13:20 12/15/23 13:20 12/15/23 13:20 12/15/23 13:20 FiO2 43 12/15/23 07:00 Oxygen Flow Rate (L/min) 2 Oxygen Delivery Method High Flow Weight: 10 kg Body Mass Index (BMI) 4.1 Intake & Output: Intake and Output for Last 24 Hours 12/13/23 12/14/23 12/15/23 23:59 23:59 23:59 Intake Total 1315.5 / 1315.5 800 / 800 Output Total 2950 / 2950 3380 / 3380 Balance -1634.5 / -1634.5 -2580 / -2580 Lab / Micro Data 12/15/23 04:56 12/15/23 04:56 Labs: Laboratory Results - last 24 hr 12/14/23 12:31: POC Glucose 317 H 12/14/23 17:37: POC Glucose 231 H 12/14/23 21:10: POC Glucose 139 H 12/15/23 04:56: WBC 11.7 H, RBC 3.01 L, Hgb 9.3 L, Hct 29.6 L, MCV 98.3, MCH 30.9, MCHC 31.4 L, RDW Std Deviation 54.2 H, RDW Coeff of Chichi 15.1 H, Plt Count 161, MPV 12.8 H, Immature Gran % (Auto) 0.900, Neut % (Auto) 90.9 H, Lymph % (Auto) 4.4 L, [place] % (Auto) 3.7, Eos % (Auto) 0.0, Baso % (Auto) 0.1, Absolute Neuts (auto) 10.6 H, Absolute Lymphs (auto) 0.51 L, Nucleated RBC % 0.2, Sodium 137, Potassium 5.5 H, Chloride 102, Carbon Dioxide 24.0, Anion Gap 11, BUN 77 H, Creatinine 6.64 H, Estim Creat Clear Calc 10.35, Est GFR (MDRD) Af Amer 8 L, Est GFR (MDRD) Non-Af 7 L, BUN/Creatinine Ratio 11.6, Glucose 198 H, Hemoglobin A1c 7.1 H, Calcium 8.7, Total Bilirubin 0.90, AST 32, ALT 52, Alkaline Phosphatase 83, Total Protein 6.0 L, Albumin 2.8 L, Globulin 3.2, Albumin/Globulin Ratio 0.9, Random Vancomycin 25.7 H 12/15/23 08:31: POC Glucose 190 H 12/15/23 12:00: POC Glucose 236 H Micro: Microbiology 12/14/23 07:14 Mucosa - Nose SARS-CoV-2, Influenza & RSV (PCR) - Final SARS-CoV-2 (COVID 19 PCR) Physical Exam Narrative Alert to name, no apparent distress S1, S2, RRR Diminished breath sounds with rales Abdomen soft, nontender No pitting edema AV fistula right arm positive thrill and bruit Assessment & Plan Assessment/Plan (1) ESRD (end stage renal disease) on dialysis: (2) Pneumonia: (3) COVID: PLAN: Plan This is a 57-year-old female with past medical history significant for ESRD who currently dialyzes via AV fistula Thursday schedule [facility] admitted to ICU for acute respiratory failure secondary to COVID-pneumonia. Nephrology consulted in view of ESRD management. Chest x-ray reviewed showing bilateral pneumonia and/or pulmonary edema. patient is s/p UF yesterday. HD today. see orders. clinically better
--- NOTE | 2023-12-15 15:02 | CASEMGMT ---
Readmission Note: Index: 11/18/23-11/21/23. Dx: CAP Readmission: 12/14/23. Dx: Acute on Chronic RF, COVID On index admission, the pt was discharged home. See SAPNA CM assessment on 11/20/23. Pt lives with her sister who helps care for the pt at home. The pt attends [facility] daily for therapy, meds, and meals. The pt receives dialysis T//Sat in [place] at 5am. On readmission, the pt presented with SOB and hypoxia. Per Kalie at [facility], the pt current order states 2L continuous via NC. Pt required 9L High flow via nonrebreather in the ED. Pt was admitted to the ICU for further management. Pt is currently 95% on 2L. Moving forward, the plan is for the pt to receive further therapy prior to returning home. Pt plans to attend a SNF at time of DC, see RAN notes.
[2023-12-15 17:03] LABS: Bedside Glucose 433 mg/dL (74-106)
[2023-12-15] MEDS: Remdesivir 100 MG in 0.9% Normal Saline (250mL Bag) 230 ML 250 MG IV (22:17)
[2023-12-15] MEDS: Ezetimibe 10 MG Tablet PO (22:20)
[2023-12-15] MEDS: Atorvastatin Calcium 80 MG Tablet PO (22:21)
[2023-12-15 22:46] LABS: Bedside Glucose 432 mg/dL (74-106)
[2023-12-16] VITALS (11 sets, daily range): BP systolic 105–164; BP diastolic 52–92; PULSE 72–85; RESP 17–20; TEMP 36.4–36.8; O2SAT 93–100; BMI 44.7
[2023-12-16] MEDS: Piperacil/Tazobactam 3.375 GM in 0.9% Normal Saline (50mL MB+) 50 ML IV ×3 (00:06→22:28)
[2023-12-16 05:40] LABS: Hematocrit 26.7 % (37-47); Hemoglobin 8.4 g/dL (12.0-15.0); Mean Corp Hgb Conc 31.5 g/dL (32-36); Mean Corpuscular Hgb 30.9 pg (27.0-32.0); Mean Corpuscular Volume 98.2 fL (81-99); Platelet Count 156 K/mm3 (150-450); RBC Distribution Width CV 15.7 % (11.6-14.6); RBC Distribution Width SD 55.3 fl (35.1-43.9); Red Blood Count 2.72 M/mm3 (4.2-5.4); White Blood Count 9.5 K/mm3 (4.4-11.0)
[2023-12-16 06:10] LABS: ALB/GLOB Ratio 0.9 RATIO (0.9-2.4); AST(SGOT) 24 U/L (15-37); Alanine Aminotransfer ALT/SGPT 42 U/L (13-56); Albumin, Serum 2.8 g/dL (3.2-5.0); Alkaline Phosphatase 81 U/L (45-117); Anion Gap 8 (5-15); BUN 77 mg/dL (7-18); BUN/Creat Ratio 13.4 RATIO (10-20); Calcium,Total 8.6 mg/dL (8.5-10.1); Chloride 102 mmol/L (98-107); Creatinine, Serum 5.73 mg/dL (0.55-1.02); EST Glomerular Filtration Rate 8 mL/min (>60); Est Glom Filt Rate - Afr Amer 10 mL/min (>60); Estimated Creatinine Clearance 12.26 ml/min; Globulin 3.2 g/dL (2.2-4.2); Glucose 212 mg/dL (74-106); Potassium 5.3 mmol/L (3.5-5.1); Sodium Level 135 mmol/L (136-145)
[2023-12-16] MEDS: hydrALAZINE 50 MG Tablet PO ×3 (06:14→21:18)
[2023-12-16] MEDS: Ipratropium/Albuterol Sulfate 3 ML AMPUL.NEB INHALATION ×2 (07:07→19:26)
--- NOTE | 2023-12-16 07:29 | PCM.PN.INT ---
Assessment & Plan Assessment/Plan (1) COVID: PLAN: Plan RECOMMENDATIONS: 1. Wean supplemental oxygen to maintain saturations at or above 90%. 2. Decadron 6 mg daily to complete 10 days of therapy. 3. Continue remdesivir to complete treatment course. 4. Continue antimicrobials to complete 7 days of therapy. 5. Nephrology following to assist with hemodialysis needs. 6. Continue appropriate DVT prophylaxis. 7. Encourage incentive spirometer use and mobilize patient as tolerated. 8. Will sign off from a pulmonary/critical care perspective. Please call with any additional questions. IMPRESSIONS: 1. Acute hypoxemic respiratory failure Appears secondary to COVID-19 with possible superimposed bacterial pneumonia. The patient has been maintained on appropriate broad-spectrum antimicrobial therapy. Plan to continue supplemental oxygen to maintain saturations at or above 90%. Given her presenting hypoxemia and onset of symptoms within 48 hours of presentation, the patient was started on remdesivir and will be continued on Decadron to complete 10 days of therapy. The patient denied ever having been diagnosed with COPD previously. 2. End-stage renal disease on hemodialysis Nephrology following to assist with hemodialysis needs. 3. History of coronary artery disease/heart failure with preserved ejection fraction/diabetes mellitus/hypertension/hyperlipidemia Complicates care, management, recovery and prognosis. Continue home medications as indicated. Dietary advancement per speech therapy recommendations. This note was generated with [employer] dictation software. It may contain incorrect words, spelling, and punctuation that were not noted in checking the note before signing. Subjective Subjective The patient was seen and examined at the bedside this morning. Events from the last 24 hours have been reviewed. The patient is currently afebrile, hemodynamically stable and maintaining appropriate oxygen saturations on 2 L/min via nasal cannula. The patient remains on antimicrobials, Decadron and remdesivir. Objective Data Objective Data The patient's most recent lab work, culture data and imaging studies have all been personally reviewed. COVID PCR was positive on December 13. Vital Signs: Vital Signs Temp Pulse Resp BP Pulse Ox O2 Del Method O2 Flow Rate 98.3 F 72 17 138/60 H 99 Nasal Cannula 2 12/16/23 06:13 12/16/23 06:14 12/16/23 06:13 12/16/23 06:14 12/16/23 06:13 12/16/23 06:13 12/16/23 06:13 FiO2 43 12/15/23 07:00 Oxygen Flow Rate (L/min) 2 Oxygen Delivery Method Nasal Cannula Weight: 236 lb 15.951 oz Body Mass Index (BMI) 44.7 Intake & Output: Intake and Output for Last 24 Hours 12/14/23 12/15/23 12/16/23 23:59 23:59 23:59 Intake Total 1315.5 / 1315.5 1100 / 1100 50 / 50 Output Total 2950 / 2950 3380 / 3380 Balance -1634.5 / -1634.5 -2280 / -2280 50 / 50 Lab / Micro Data Attestation: I reviewed the patient's lab results. 12/16/23 05:23 12/16/23 05:23 Labs: Laboratory Results - last 24 hr 12/15/23 04:56: Hemoglobin A1c 7.1 H 12/15/23 08:31: POC Glucose 190 H 12/15/23 12:00: POC Glucose 236 H 12/15/23 16:41: POC Glucose 433 H 12/15/23 22:11: POC Glucose 432 H 12/16/23 05:23: WBC 9.5, RBC 2.72 L, Hgb 8.4 L, Hct 26.7 L, MCV 98.2, MCH 30.9, MCHC 31.5 L, RDW Std Deviation 55.3 H, RDW Coeff of Chichi 15.7 H, Plt Count 156, MPV 13.0 H, Sodium 135 L, Potassium 5.3 H, Chloride 102, Carbon Dioxide 25.0, Anion Gap 8, BUN 77 H, Creatinine 5.73 H, Estim Creat Clear Calc 12.26, Est GFR (MDRD) Af Amer 10 L, Est GFR (MDRD) Non-Af 8 L, BUN/Creatinine Ratio 13.4, Glucose 212 H, Calcium 8.6, Total Bilirubin 0.70, AST 24, ALT 42, Alkaline Phosphatase 81, Total Protein 6.0 L, Albumin 2.8 L, Globulin 3.2, Albumin/Globulin Ratio 0.9 Micro: Microbiology 12/15/23 12:30 Nasal Secretion MRSA (PCR) - Final 12/15/23 12:30 Urine, Clean Catch Legionella Antigen - Final 12/15/23 12:30 Urine, Clean Catch Streptococcus pneumoniae Antigen (M - Final 12/14/23 07:14 Mucosa - Nose SARS-CoV-2, Influenza & RSV (PCR) - Final SARS-CoV-2 (COVID 19 PCR) ABG Data ABG results: ABG 12/14/23 07:57 Specimen Type ART Sample Site L Radial pH 7.40 Bicarbonate Actual 26.0 Total CO2 27 Base Excess 1 O2 Saturation 91 L O2 % 4.0 ABG pCO2 42.3 ABG pO2 61 L Lalito Test Positive O2 Delivery Device Cannula Vent Mode Not entered Radiography Diagnostic Testing: Radiology Impression Chest X-Ray 12/14/23 06:31 IMPRESSION: Bilateral airspace disease as described. Differential diagnosis to consider should include either pulmonary edema or bilateral pneumonia. Electronically Signed: David Painting MD at 8:27 EDT , Physical Exam Const alert, oriented x3 and no apparent distress General Appearance: cooperative HEENT normocephalic, head/scalp atraumatic and moist oral mucous membranes Eyes PERRL, EOMs intact bilaterally and conjunctivae normal Neck supple General: trachea midline Chest inspection of chest normal Resp normal respiratory effort Auscultation: diminished lung sounds Cardio regular rate and regular rhythm GI normal to inspection, nondistended, normoactive bowel sounds Extremity no clubbing, cyanosis or edema Skin no rashes or lesions noted Neuro CN's II-XII intact bilaterally, moves all extremities and no focal motor deficits Psych cooperative and affect normal Charges/Coding Visit Charges Inpatient E&M: 06729 Subs Hosp L2
[2023-12-16] MEDS: amLODIPine 10 MG Tablet PO (08:05)
[2023-12-16] MEDS: Cholecalciferol (VIT D3) 25 MCG TABLET (1,000 UNITS) 50 MCG PO (08:06)
[2023-12-16] MEDS: guaiFENesin 1,200 MG Tablet 1200 MG PO ×2 (08:06→21:18)
[2023-12-16] MEDS: Aspirin 81 MG TAB.CHEW PO (08:06)
[2023-12-16] MEDS: Folic Acid/Vitamin B Comp W-C 1 Capsule 1 CAP PO (08:06)
[2023-12-16] MEDS: Carvedilol 6.25 MG Tablet PO ×2 (08:06→15:39)
[2023-12-16] MEDS: Allopurinol 100 MG Tablet PO (08:06)
[2023-12-16] MEDS: Heparin Injection (Vial) 5,000 UNIT/ML VIAL 5000 UNIT SC ×2 (08:06→21:15)
[2023-12-16] MEDS: dexAMETHasone 10 MG/ML Vial 6 MG IV (08:06)
[2023-12-16] MEDS: Insulin Lispro 100 UNIT/ML INSULN.PEN SC ×4 (08:14→21:21)
[2023-12-16] MEDS: Insulin Lispro 100 UNIT/ML INSULN.PEN 8 UNIT SC ×3 (08:14→16:35)
[2023-12-16] MEDS: Insulin Glargine-YFGN 100 UNIT/ML Pen 15 UNIT SC (08:15)
--- NOTE | 2023-12-16 09:47 | CASEMGMT ---
Patient was accepted by [facility]. RAN asked that they start the pre-cert. RN TATUM was working on switching patient from [facility] to [facility]. RAN will notify patient's sister and daughter. Plan: D/c to [facility] pending insurance approval. Patti Law LEAD APPLICATION ARCHITECT SMELTING ENGINEER
--- NOTE | 2023-12-16 09:55 | CASEMGMT ---
SAPNA WINN updated by that patient will need to transfer outpatient HD from [facility] to [facility]. SAPNA WINN called [facility] and completed transfer. Per Yaa, patient will be assigned to [facility], 3rd shift between 1-2pm. Direct number for [facility] is [phone]. SAPNA WINN called and updated [facility]. SAPNA WINN updated .
--- NOTE | 2023-12-16 10:14 | PN.RENAL_ITS ---
Subjective Subjective Sitting in chair. No complaints. No overnight events. On room air. Objective Data Objective Data Vital Signs: Vital Signs Temp Pulse Resp BP Pulse Ox O2 Del Method O2 Flow Rate 97.8 F 77 18 164/81 H 95 Room Air 3 12/16/23 08:03 12/16/23 08:03 12/16/23 08:03 12/16/23 08:03 12/16/23 08:03 12/16/23 08:03 12/16/23 07:07 FiO2 43 12/15/23 07:00 Oxygen Flow Rate (L/min) 3 Oxygen Delivery Method Room Air Weight: 107.5 kg Body Mass Index (BMI) 44.7 Intake & Output: Intake and Output for Last 24 Hours 12/14/23 12/15/23 12/16/23 23:59 23:59 23:59 Intake Total 1315.5 / 1315.5 1100 / 1100 50 / 50 Output Total 2950 / 2950 3380 / 3380 Balance -1634.5 / -1634.5 -2280 / -2280 50 / 50 Lab / Micro Data 12/16/23 05:23 12/16/23 05:23 Labs: Laboratory Results - last 24 hr 12/15/23 12:00: POC Glucose 236 H 12/15/23 16:41: POC Glucose 433 H 12/15/23 22:11: POC Glucose 432 H 12/16/23 05:23: WBC 9.5, RBC 2.72 L, Hgb 8.4 L, Hct 26.7 L, MCV 98.2, MCH 30.9, MCHC 31.5 L, RDW Std Deviation 55.3 H, RDW Coeff of Chichi 15.7 H, Plt Count 156, M PV 13.0 H, Sodium 135 L, Potassium 5.3 H, Chloride 102, Carbon Dioxide 25.0, Anion Gap 8, BUN 77 H, Creatinine 5.73 H, Estim Creat Clear Calc 12.26, Est GFR (MDRD) Af Amer 10 L, Est GFR (MDRD) Non-Af 8 L, BUN/Creatinine Ratio 13.4, G lucose 212 H, Calcium 8.6, Total Bilirubin 0.70, AST 24, ALT 42, Alkaline Phosphatase 81, Total Protein 6.0 L, Albumin 2.8 L, Globulin 3.2, Albumin/Globulin Ratio 0.9 Micro: Microbiology 12/14/23 06:41 Blood Culture (Wb) - Anticubital Left Blood Culture - Preliminary No growth in 48 hours. 12/15/23 12:30 Nasal Secretion MRSA (PCR) - Final 12/15/23 12:30 Urine, Clean Catch Legionella Antigen - Final 12/15/23 12:30 Urine, Clean Catch Streptococcus pneumoniae Antigen (M - Final 12/14/23 07:14 Mucosa - Nose SARS-CoV-2, Influenza & RSV (PCR) - Final SARS-CoV-2 (COVID 19 PCR) Physical Exam Narrative Alert to name, no apparent distress S1, S2, RRR Breath sounds clear anteriorly Abdomen soft, nontender No pitting edema AV fistula right arm positive thrill and bruit Assessment & Plan Assessment/Plan (1) ESRD (end stage renal disease) on dialysis: (2) Pneumonia: (3) COVID: PLAN: Plan This is a 57-year-old female with past medical history significant for ESRD who currently dialyzes via AV fistula Thursday schedule [facility] admitted to ICU for acute respiratory failure secondary to COVID- pneumonia. Nephrology consulted in view of ESRD management. Admission chest x- ray chest x-ray bilateral pneumonia and/or pulmonary edema. Patient underwent ultrafiltration with around 3 L fluid removal on Thursday and had hemodialysis yesterday with fluid removal. Oxygenation has improved now on room air. No acute indication for JEW[employer]OUG[employer] PROFESSOR today. Next dialysis will be tomorrow.
--- NOTE | 2023-12-16 11:00 | CASEMGMT ---
RAN called patient's sister and daughter notifying both of them that [facility] has accepted patient. Plan: d/c to [facility] pending insurance approval. Patti SEQUEIRA
--- NOTE | 2023-12-16 11:22 | NURSING ---
Pt very agitated and crying this AM. Pt screaming that door must be left open. Patient also states she does not have covid, no one every tested her, and she is going home, not to a correction. Patient on and off the phone with her sister june, stating patient needs to go to rehab for a few weeks because she is having open heart surgery thursday. Attempted to show/educate patient on positive covid test and reasoning for leaving door shut. Patient demanding to talk to the boss of this place and states she is going to scream the whole time her door is shut. Demetria attemped to talk/educate on leaving door shut and positive covid results. Patient sitting in chair with blinds up, breakfast arrived. Patient stated she wont eat her breakfast until the door is open. Patient stated the doctor told her she isnt sick and can go home and that the door can be open. Attempted to re-educate. Able to get patient to eat breakfast before swallow test, left resting in chair with chair alarm on and call light in reach.
--- NOTE | 2023-12-16 11:59 | ST.MBS ---
Modified Barium Swallow Patient Information Study Date: 12/16/23 Study Time: 10:30 Direct Billable Minutes: 83 Total Minutes procedure & reportin Diagnosis: PNA J18.9 Referring Physician: Mahamed Dunn Reason for Referral: Objectively assess swallow function, assess risk for aspiration, and determine recommendations for least restrictive diet textures and compensatory strategies to improve safety of swallow. Medical History: PMH: Easy bruising, Dietary restriction, History of edema, TIA, Community acquired PNA, ESRD on dialysis, Acute AMS, Insulin dependent diabetes mellitus, Low iron, Former smoker, HFpEF, History of non-ST elevation myocardial infarction (NSTEMI) (01/20/21), Debility, COVID-19 (01/20/21), Inability to walk, Generalized weakness, Ischemic CVA (04/2018), Respiratory insufficiency, Hypoxia, Anxiety, Bilateral carotid bruits, HLD, HTN, GERD, Depression, Morbid obesity, Acute renal injury due to circulatory failure (See EMR for full PMH). Patient presented to [facility] ED 12/14/2023 by EMS w/ sudden onset of shortness of breath, severe hypoxia/altered mental status. She was discharge ~3 weeks ago after treatment for acute hypoxic respiratory failure secondary to bilateral pneumonia. Patient is on 2L O2 at home at baseline. She woke up w/ SOB and vomited. Pulse ox was 48% w/ her oxygen on. Patient was 89% on 6L and then increased to 9L high flow and then nonrebreather. Chest X-ray in ED shows, Bilateral airspace disease...Differential diagnosis to consider should include either pulmonary edema or bilateral pneumonia. COVID-19 positive. Patient admitted to ICU for subsequent management. NETWORKER was consulted due to aspiration concerns. NETWORKER initially recommended Easy to Chew textures / Thin liquids, direct supervision after BSE 12/16/2023; however, respiratory status worsened and NETWORKER then recommended NPO w/ plans for MBSS 12/15/23 prior to diet advancement. Physician advanced patient back to oral diet 12/15/2023. MBSS had to be re-scheduled 12/16/2023 due to dialysis. Current Diet Ordered: Regular textures / Thin liquids Dentition: Natural Teeth and Missing Teeth Mental Status: Impaired Respiratory Status: Oxygenating on Room Air Penetration-Aspiration Scale Penetration-Aspiration Scale: OBJECTIVE ASSESSMENT OF SWALLOW FUNCTION (QUANTITATIVE ? PER TRIAL): PENETRATION / ASPIRATION SCALE (LOPEZ): 1 = does not enter airway 2 = enters airway/above vocal folds/ejected 3 = enters airway/above vocal folds/not ejected 4 = enters airway/contacts vocal folds/ejected 5 = enters airway/contacts vocal folds/not ejected 6 = enters airway/below vocal folds/ejected 7 = enters airway/below vocal folds/not ejected despite effort 8 = enters airway/below vocal folds/no effort VIDEOFLOROSCOPIC SCALE SCORE (LOPEZ): Grade I = aspiration of material that has penetrated into the laryngeal vestibule, intact cough reflex Grade II = aspiration < 10 % of the bolus, intact cough reflex Grade III = aspiration of < 10 % of the bolus, reduced cough reflex or aspiration of > 10 % of the bolus, intact cough reflex Grade IV = aspiration of > 10 % of the bolus, reduced cough reflex Penetration-Aspiration Scale Score Thin Liquid via teaspoon: Result: 1= does not enter airway Thin Liquid via teaspoon Trial 2: Result: 2= enter airway/above vocal folds/ejected Thin Liquid via large single sip: cup: Result: 1= does not enter airway [place] Thick Liquid via large single sip: cup: Result: 1= does not enter airway Pudding via teaspoon: Result: 1= does not enter airway Comment: Esophageal screen - Retention in mid esophagus. Thin Liquid via single sip: straw: Result: 1= does not enter airway Comment: Esophageal screen - Complete clearance of this trial and previous trial. 1/2 Cookie: Result: 1= does not enter airway Comment: Esophageal screen - Retention in mid esophagus. Thin Liquid via single sip: straw Trial 2: Result: 2= enter airway/above vocal folds/ejected Comment: Esophageal screen - Liquid wash somewhat cleared cookie. A second liquid wash was provided during the esophageal screen and it mostly cleared retention of cookie. Oral Phase Labial Seal: No Labial Escape Tongue Control During Bolus Hold: Posterior escape of greater than half of bolus Bolus Preparation/Mastication: Slow prolonged chewing/mashing with complete recollection (posterior loss to the pyriforms prior to swallow onset) Bolus Transport/Lingual Motion: Repetitive/disorganized tongue motion Oral Residue: Residue collection on oral structures Pharyngeal Phase Initiation of Pharyngeal Swallow: Bolus head in pyriforms Soft Palate Elevation: Trace column of contrast/air between soft palate and pharyngeal wall Laryngeal Elevation: Comp. Superior move thyroid cart w/comp. apprx arytenoid cart-epig pet Anterior Hyoid Excursion: Complete anterior movement Epiglottic Movement: Complete inversion Laryngeal Vestibule Closure at Height of Swallow: Incomplete; narrow column of air/contrast in laryngeal vestibule Pharyngeal Stripping Wave: Present - complete Pharyngoesophageal Segment Opening: Complete distension and complete duration; no obstruction of flow Tongue Base Retraction: Narrow column of contrast between tongue base & post. pharyngeal wall Pharyngeal Residue: Collection of residue within or on pharyngeal structures Esophageal Phase Esophageal Clearance: Esophageal retention w/ retrograde flow below pharyngoesophageal seg. Treatment Strategies Effects of treatment strategies attemped:: Liquid wash = effective Diagnosis/Impression Diagnosis: Mild oropharyngeal dysphagia R13.12; Esophageal dysphagia R13.14 Impression: The oral phase is primarily marked by... -Decreased bolus control w/ posterior loss of >1/2 various consistencies to the pyriforms prior to swallow onset. -Delayed, repetitive tongue motion for A-P transport. -Slowed, but complete mastication. The pharyngeal phase is primarily marked by... -Delayed swallow onset. -Laryngeal penetration of thin liquids 2X, which fully ejected after the swallow. No aspiration observed. -Trace-mild pharyngeal residue, which fully cleared with independent initiation of a second swallow as needed. The esophageal phase is primarily marked by... -Retention of pudding and cookie in the mid esophagus. Liquid wash X1 effectively cleared pudding. Cookie required 2 liquid washes to fully clear esophageal retention. Recommendations Diet: Regular Textures and Thin Liquids Compensatory Strategies: Small Bites, Small Sips, Slow Rate, Alternate bites/solids and sips/liquids (1-2 sips after each bite), Sitting upright and Remain sitting upright for 30 minutes after PO intake Supervision: Distant Supervision Recommend Repeat Modified Barium Swallow: No Need for Skilled Speech Therapy Services: Yes Comment: -Train the patient in use of strategies to decrease risk for aspiration and reflux aspiration. -Ongoing assessment of diet tolerance of recommended textures. -Train the patient in oropharyngeal exercise program to improve bolus control, tongue base retraction, and swallow onset (lingual resistance, Renate, Nola). Recommended Referrals: GI Consult (outpatient GI consult) Education Completed: 1. Described result of evaluation., 2. Pt understands evaluation & agrees with goals and treatment plan. and 7. Pt requires further education on strategies & risks. Status Active ST Patient: Active Contact Information [facility] Speech Therapy:: Jazzmine Cobb M.A. CCC-NETWORKER? Speech-Language Pathologist?? [facility] [address] [place] [address]? [email or web address]?? [phone]
[2023-12-16 12:27] LABS: Bedside Glucose 345 mg/dL (74-106)
--- NOTE | 2023-12-16 15:13 | PN.HOSP_ITS ---
Reason for Visit Reason for Visit: Diagnoses Pneumonia, unspecified organism (12/14/23) Chronic obstructive pulmonary disease with (acute) exacerbation (12/14/23) End stage renal disease (12/14/23) COVID-19 (12/14/23) Other specified health status (12/14/23) Dependence on renal dialysis (12/14/23) Objective Data Objective Data Vital Signs: Vital Signs Temp Pulse Resp BP Pulse Ox O2 Del Method O2 Flow Rate 97.8 F 77 18 164/81 H 95 Room Air 3 12/16/23 08:03 12/16/23 08:03 12/16/23 08:03 12/16/23 08:03 12/16/23 08:03 12/16/23 09:36 12/16/23 07:07 FiO2 43 12/15/23 07:00 Oxygen Flow Rate (L/min) 3 Oxygen Delivery Method Room Air Weight: 236 lb 15.951 oz Body Mass Index (BMI) 44.7 Intake & Output: Intake and Output for Last 24 Hours 12/14/23 12/15/23 12/16/23 23:59 23:59 23:59 Intake Total 1315.5 / 1315.5 1100 / 1100 400 / 400 Output Total 2950 / 2950 3380 / 3380 Balance -1634.5 / -1634.5 -2280 / -2280 400 / 400 Lab / Micro Data 12/16/23 05:23 12/16/23 05:23 Labs: Laboratory Results - last 24 hr 12/15/23 16:41: POC Glucose 433 H 12/15/23 22:11: POC Glucose 432 H 12/16/23 05:23: WBC 9.5, RBC 2.72 L, Hgb 8.4 L, Hct 26.7 L, MCV 98.2, MCH 30.9, MCHC 31.5 L, RDW Std Deviation 55.3 H, RDW Coeff of Chichi 15.7 H, Plt Count 156, M PV 13.0 H, Sodium 135 L, Potassium 5.3 H, Chloride 102, Carbon Dioxide 25.0, Anion Gap 8, BUN 77 H, Creatinine 5.73 H, Estim Creat Clear Calc 12.26, Est GFR (MDRD) Af Amer 10 L, Est GFR (MDRD) Non-Af 8 L, BUN/Creatinine Ratio 13.4, G lucose 212 H, Calcium 8.6, Total Bilirubin 0.70, AST 24, ALT 42, Alkaline Phosphatase 81, Total Protein 6.0 L, Albumin 2.8 L, Globulin 3.2, Albumin/Globulin Ratio 0.9 12/16/23 11:58: POC Glucose 345 H Micro: Microbiology 12/14/23 06:41 Blood Culture (Wb) - Anticubital Left Blood Culture - Preliminary No growth in 48 hours. 12/15/23 12:30 Nasal Secretion MRSA (PCR) - Final 12/15/23 12:30 Urine, Clean Catch Legionella Antigen - Final 12/15/23 12:30 Urine, Clean Catch Streptococcus pneumoniae Antigen (M - Final 12/14/23 07:14 Mucosa - Nose SARS-CoV-2, Influenza & RSV (PCR) - Final SARS-CoV-2 (COVID 19 PCR) Physical Exam Narrative Overall patient is feeling better. Pulse ox 95% on room air. Not tachypneic. She denies shortness of breath or chest pain and feels better. Physical exam General: Awake, alert and oriented x 3 HEENT: Atraumatic, PERRLA, EOMI, Normocephalic Oral: No Gingival or Mucosal Lesions/ Ulcerations Neck: Supple, No JVD, Negative Carotid Bruits Chest wall/Lungs: Air entry diminished in all lung field. Mild expiratory rhonchi. Cardiovascular: sinus rhythm, Normal S1, Normal S2, No M/G/R Abdomen: Bowel Sounds Present, Soft, Non Tender, Non-Distended : Makes some urine. On hemodialysis. No dysuria. No renal angle tenderness. No suprapubic tenderness. Extremities: Mild bilateral pitting edema, Capillary Refill Less than 3 Seconds Skin: No rashes, No breakdown Musculoskeletal: No Tenderness to Palpation of Joints or Extremities Neurological: Cranial nerves II-XII grossly intact, DTR 2+/4. Nonfocal exam. Psych/Mental Status: flat affect. She talks but does not make much sense. Assessment & Plan Assessment/Plan (1) Pneumonia: (2) COPD exacerbation: PLAN: Plan This is 57-year-old female with multiple comorbidities admitted with acute onset of shortness of breath severe hypoxia and cough 1. Acute severe hypoxic respiratory failure due to bilateral COVID-19 pneumonia: Chest x-ray initially reviewed but not officially reported. It shows bilateral patchy and airspace consolidation in mid to lower lung [place]. Twelve-lead EKG shows sinus rhythm 84 bpm, QTc 422 ms. First-degree AV block. Patient is being admitted in ICU. ABG 7.40/42 point , pulse ox 91% on 4 L of oxygen. Advised to put to increase FiO2 high flow oxygen/Airvo. Pneumonia workup ordered. Started on empiric antibiotic IV Zosyn and vancomycin.I suspect patient might have aspiration pneumonia too. Triple PCR came Positive for COVID only, rest RSV and flu are negative. Started on IV remdesivir and dexamethasone. 12/14: Patient overall feeling better on high flow oxygen. Seen by manufacturing leader. Patient is downgraded to PCU. Serum magnesium 2.2. Alkaline phosphatase 107. 12/15: Currently patient on room air. Not tachypneic. Blood culture negative for 48 hours. She feels good and wants to go home but her sister wanted to go to rehab as she will be going for her scheduled surgery. 2. Acute encephalopathy probably metabolic/infectious etiology: Treat underlying disorder. 12/14: Acute encephalopathy resolved. She is fully awake and alert. She was talking to her son on phone and said she wants to get out of here. 12/15: Patient is not acutely encephalopathic but has chronic vascular dementia from previous stroke. She even denies that she has COVID although patient was told multiple times. 3. Suspicion of aspiration/aspiration pneumonia: During previous admission speech therapy was consulted and evaluated the patient and no aspiration or dysphagia concern was found. Consult to speech therapy. 12/14: Patient is going for cookie swallow study. 4. ESRD on hemodialysis TTS with mild hyperkalemia: Party Plan Dealer Dr. Granger has been consulted.AV fistula on right forearm. Mild hyperkalemia, K. 5.2 BUN/creatinine 50/5.67. Bicarb 27 anion gap 8. Sodium 136. 12/14: Patient had shortness of dialysis yesterday. Dialysis as per retinal angiographer recommendation 12/15: Patient had modified barium swallow. Diagnosis mild oropharyngeal dysphagia, esophageal dysphagia. Dietary recommendation regular texture with thin liquid with compensatory strategies. Need for skilled speech therapy. 5. CAD: Patient denies chest pain/pressure. Had PCI in the past. Continue home aspirin statin Coreg. Not on TAYLOR or ARB 6. Hypertension and dyslipidemia: BP was elevated in ED 172/74. Patient on antihypertensive medication at home continued. 7. Cerebrovascular disease with previous stroke in 2019 with? vascular dementia-complicates care 8. DM type II: Glucose 285. Accu-Chek before meals and at bedtime with Humalog sliding scale coverage and hypoglycemia protocol. Home dose of Lantus and short-acting insulin continued 12/14 A1c 7.1%. Living will/advanced directive/end of life care: Patient does not have living will or advanced directive. As per the sister at the bedside, patient has power of rehab department manager for health, her daughter and herself. After discussion of benefits/risks procedures involved with full code, DNR CC arrest and DNR CC, the patient and her sister opted for full code. Patient does want artificial life support including intubation, tube feed, ventilator and/chest compression, central venous catheter, vasopressor and DC shock if needed Microbiology Past 72 Hours 12/14/23 06:41 Blood Culture (Wb) - Anticubital Left Blood Culture - Preliminary No growth in 48 hours. 12/15/23 12:30 Nasal Secretion MRSA (PCR) - Final 12/15/23 12:30 Urine, Clean Catch Legionella Antigen - Final 12/15/23 12:30 Urine, Clean Catch Streptococcus pneumoniae Antigen (M - Final 12/14/23 07:14 Mucosa - Nose SARS-CoV-2, Influenza & RSV (PCR) - Final SARS-CoV-2 (COVID 19 PCR) Laboratory Results 12/15/23 16:41: POC Glucose 433 H 12/15/23 22:11: POC Glucose 432 H 12/16/23 05:23: WBC 9.5, RBC 2.72 L, Hgb 8.4 L, Hct 26.7 L, MCV 98.2, MCH 30.9, MCHC 31.5 L, RDW Std Deviation 55.3 H, RDW Coeff of [place]ichi 15.7 H, Plt Count 156, M PV 13.0 H, Sodium 135 L, Potassium 5.3 H, Chloride 102, Carbon Dioxide 25.0, Anion Gap 8, BUN 77 H, Creatinine 5.73 H, Estim Creat Clear Calc 12.26, Est GFR (MDRD) Af Amer 10 L, Est GFR (MDRD) Non-Af 8 L, BUN/Creatinine Ratio 13.4, G lucose 212 H, Calcium 8.6, Total Bilirubin 0.70, AST 24, ALT 42, Alkaline Phosphatase 81, Total Protein 6.0 L, Albumin 2.8 L, Globulin 3.2, Albumin/Globulin Ratio 0.9 12/16/23 11:58: POC Glucose 345 H Charges/Coding Visit Charges Inpatient E&M: 98601 Subs Hosp L2
[2023-12-16 15:37] LABS: Bedside Glucose 169 mg/dL (74-106)
[2023-12-16 15:37] LABS: Bedside Glucose 189 mg/dL (74-106)
--- NOTE | 2023-12-16 16:06 | CASEMGMT ---
Discharge Planning Updates sent to [facility]. Requested that they submit for intermediate loc. Rima Camacho DC Planning Asst.
[2023-12-16 17:05] LABS: Bedside Glucose > 500 mg/dL (74-106)
[2023-12-16] MEDS: Insulin Glargine-YFGN 100 UNIT/ML Pen 10 UNIT SC (17:44)
[2023-12-16] MEDS: ALPRAZolam 0.25 MG Tablet PO ×2 (17:44→21:18)
--- NOTE | 2023-12-16 18:43 | CASEMGMT ---
Social Work - Decision Making Order/Family Dynamics Received call from nursing supervisor hide house Diamond, who had been alerted by PCU staff that patient's son Kvng has been calling patient's brother Pedro Luis, demanding that patient be picked up and taken home. Concern by staff as patient with history of vascular dementia and currently has COVID. Plan is for patient go to a intermediate at discharge, as patient's caregiver/sister is not able to care for patient currently, as the sister Stephy is about the open heart surgery. Chart review and noted patient has POAHC in place. Noted documentation that patient is oriented to person and place; noted patient is fixated on disbelief of current medical diagnoses. Received call from Jazzmine, patient's nurse today, also updating to patient's current status, concerns about patient leaving and what to do should patient try to leave AMA. Talked through possible options including securing unit if true concerns about patient's capacity to understand risk of AMA, as well as looking at possible medical hold criteria, but that this writer technical publications wants to talk with POAHC first. POC are in order: Madi Jain, daughter - [phone] Ginger Jain, son-in-law - [phone] Stephy Gilbert, sister - [phone] patient's primary caregiver, patient lives with Stephy Called Madi. Left message for Madi. Called Ginger, no ability to leave message. Called Stephy. Left message. Received call from Stephy who reports awareness of what Kvng is doing, as Kvng was calling Pedro Luis, screaming and yelling to go and get patient from the hospital when Pedro Luis was at Stephy's house. Stephy shares that patient has been calling Kvng on cell phone, telling Kvng that patient is supposed to discharge, to which Kvng is then causing demands to family that are not realistic. Stephy reports Kvng has not been to [facility] nor has seen patient in over 2 years now. Kvng lives in [place], [place]. Stephy reports to have told Pedro Luis, that if Pedro Luis wants to listen to Kvng and come take patient out of the hospital, then Pedro Luis is taking patient to Pedro Luis's home; Stephy is not in a condition to care for patient and also has to be ready for surgery herself. Pedro Luis did not voice agreement or any intention to Stephy, about taking patient to Pedro Luis's home. Stephy reports she has directed Pedro Luis to go home and stop answering Kvng's calls. Stephy reports belief that Pedro Luis is listening to Stephy's direction. This writer technical publications offered to call Kvng to set things straight with Kvng, that patient is not discharged at this time. Stephy reports would like for this writer technical publications to call, and even update to plan for rehab at a SNF, so Kvng can understand that patient is not thinking clearly as well as to know truly there is no one to help care for patient currently. Stephy does not have Kvng's number but thought that patient's nurse Jazzmine had the number. Stephy reports was at the today and signed all admission papers. Stephy reports Madi continues to be supportive of discharge plan to . Spoke with Jazzmine again. Updated to call with the sister. Jazzmine reports patient is calmer now, that patient spoke to Stephy and patient is now stating willingness to stay overnight. Jazzmine gil does not have Kvng's phone, as call with Kvng earlier was via the patient's cell phone. Discussed with Jazzmine: That should patient start demanding to leave again this evening or overnight, ideas on what to communicate with patient. Discussed that AMA would be difficult if patient does not have a ride and it sounds like there is not any family close by planning to get patient to take patient to their home. Should patient try to physically leave, then would suggest calling the physician to see if patient meets criteria for medical hold policy; but also patient does have POAHC to pull in on decision making if there is continued concern for capacity. Per Jazzmine, patient is currently calm and accepting of staying at the hospital over night, after speaking with Stephy on the phone again. Plan: [facility], anticipating intermediate level of care. SW to follow and assist. -MO Hughes
--- NOTE | 2023-12-16 20:02 | NURSING ---
Pt in room crying and screaming about going home. This RN entered to obtain blood sugar. Patient on phone with son, requesting I talk to her son, Kvng. Kvng states he has no clue how his sister became POA, he is the oldest and it should be him. Kvng states he wants patient to leave tonight, there is no reason to keep her, she can go home and he will get her a ride right now. Patient stating the doctor told her she could leave today. Attempted to educate this is against medical advice, patient and son yelling and unwilling to hear education. This RN attempted to re-explain they were getting rehab/intermediate set up for her to recover from COVID, patient stating we never tested her and she does not have COVID. Patient oriented to person and place. Patient unable to questions relating to situation, stating she doesnt know where she will go if her sister doesnt let her come home at this time, and again stating she does not have covid and is not sick at all. Attempted to educate BG was 505 this evening, patient stating she does not care and that will go away on its own. This RN informed patient and son we would discuss with doctor. MD notified, see physician notifications. manager heart and maintenance and utilities supervisor notified. This RN re-entered patients room, patient was on the phone with her sister June explaining to patient about staying at rehab facility, patient agreeable at this time. Patient agreed to spend the night. Assisted patient back to bed, call light within reach, and still on the phone with her sister.
[2023-12-16] MEDS: Remdesivir 100 MG in 0.9% Normal Saline (250mL Bag) 230 ML 250 MG IV (21:13)
[2023-12-16] MEDS: 0.9% Saline Lock 10 ML Syringe IV (21:15)
[2023-12-16] MEDS: Ezetimibe 10 MG Tablet PO (21:18)
[2023-12-16] MEDS: Atorvastatin Calcium 80 MG Tablet PO (21:18)
[2023-12-16] MEDS: Acetaminophen 325 MG Tablet 650 MG PO (21:18)
[2023-12-16 21:41] LABS: Bedside Glucose 288 mg/dL (74-106)
[2023-12-17] VITALS (16 sets, daily range): BP systolic 112–211; BP diastolic 57–83; PULSE 68–88; RESP 14–18; TEMP 36.1–36.7; O2SAT 95–99; BMI 44.7; BMI 45.3
[2023-12-17] MEDS: hydrALAZINE 50 MG Tablet PO ×3 (06:21→21:52)
[2023-12-17 06:38] LABS: Hematocrit 26.4 % (37-47); Hemoglobin 8.4 g/dL (12.0-15.0); Mean Corp Hgb Conc 31.8 g/dL (32-36); Mean Corpuscular Hgb 30.7 pg (27.0-32.0); Mean Corpuscular Volume 96.4 fL (81-99); Mean Platelet Vol. 12.9 fl (6.2-12.0); Platelet Count 170 K/mm3 (150-450); RBC Distribution Width CV 15.5 % (11.6-14.6); RBC Distribution Width SD 53.6 fl (35.1-43.9); Red Blood Count 2.74 M/mm3 (4.2-5.4); White Blood Count 8.7 K/mm3 (4.4-11.0)
[2023-12-17 07:09] LABS: ALB/GLOB Ratio 0.9 RATIO (0.9-2.4); AST(SGOT) 19 U/L (15-37); Alanine Aminotransfer ALT/SGPT 36 U/L (13-56); Albumin, Serum 2.7 g/dL (3.2-5.0); Alkaline Phosphatase 78 U/L (45-117); Anion Gap 12 (5-15); BUN 94 mg/dL (7-18); Calcium,Total 8.1 mg/dL (8.5-10.1); Chloride 102 mmol/L (98-107); Creatinine, Serum 6.72 mg/dL (0.55-1.02); EST Glomerular Filtration Rate 7 mL/min (>60); Est Glom Filt Rate - Afr Amer 8 mL/min (>60); Estimated Creatinine Clearance 10.45 ml/min; Globulin 3.1 g/dL (2.2-4.2); Glucose 134 mg/dL (74-106); Potassium 4.6 mmol/L (3.5-5.1); Protein, Total 5.8 g/dL (6.4-8.2); Sodium Level 137 mmol/L (136-145)
[2023-12-17] MEDS: Cholecalciferol (VIT D3) 25 MCG TABLET (1,000 UNITS) 50 MCG PO (08:17)
[2023-12-17] MEDS: ALPRAZolam 0.25 MG Tablet PO ×2 (08:17→21:52)
[2023-12-17] MEDS: Carvedilol 6.25 MG Tablet PO (08:17)
[2023-12-17] MEDS: 0.9% Saline Lock 10 ML Syringe IV (08:17)
[2023-12-17] MEDS: Allopurinol 100 MG Tablet PO (08:17)
[2023-12-17] MEDS: Heparin Injection (Vial) 5,000 UNIT/ML VIAL 5000 UNIT SC (08:17)
[2023-12-17] MEDS: Aspirin 81 MG TAB.CHEW PO (08:17)
[2023-12-17] MEDS: Folic Acid/Vitamin B Comp W-C 1 Capsule 1 CAP PO (08:17)
[2023-12-17] MEDS: guaiFENesin 1,200 MG Tablet 1200 MG PO ×2 (08:17→21:52)
[2023-12-17] MEDS: dexAMETHasone 10 MG/ML Vial 6 MG IV (08:18)
[2023-12-17] MEDS: Ipratropium/Albuterol Sulfate 3 ML AMPUL.NEB INHALATION (08:42)
[2023-12-17 08:46] LABS: Bedside Glucose 127 mg/dL (74-106)
--- NOTE | 2023-12-17 09:34 | CASEMGMT ---
RAN spoke with patient's sister June. June was asking about status of patient being discharged. SW let her know as soon as insurance approves patient will go. RAN is hoping this will be today, but SW does not know. [facility] will let her know when patient is being discharged. Plan: d/c to [facility] under intermediate level of care pending approval. Patti Law SHOWER MAID HUA
[2023-12-17] MEDS: amLODIPine 10 MG Tablet PO (10:30)
[2023-12-17] MEDS: Piperacil/Tazobactam 3.375 GM in 0.9% Normal Saline (50mL MB+) 50 ML IV (10:30)
--- NOTE | 2023-12-17 10:40 | TREXTCAR_ITS ---
Diet Diet Order/Speech Therapy: 12/15/23 07:52 Diet: Regular - General Diet Comments: Distant sup, meds with applesauce Routine Orders/Code Status Suppository Type: Dulcolax 10mg Suppository Frequency: Daily PRN Therapies Extremity Affected:: Bilateral Lower Physical Therapy: Eval and Treat Occupational Therapy: Eval and Treat Speech Therapy: Eval and Treat Problem/Diagnosis (1) Pneumonia: Status: Acute Code(s): J18.9 - Pneumonia, unspecified organism (2) COPD exacerbation: Status: Chronic Code(s): J44.1 - Chronic obstructive pulmonary disease with (acute) exacerbation Plan This is 57-year-old female with multiple comorbidities admitted with acute onset of shortness of breath severe hypoxia and cough 1. Acute severe hypoxic respiratory failure due to bilateral COVID-19 pneumonia: Chest x-ray initially reviewed but not officially reported. It shows bilateral patchy and airspace consolidation in mid to lower lung g[place]. Twelve-lead EKG shows sinus rhythm 84 bpm, QTc 422 ms. First-degree AV block. Patient is being admitted in ICU. ABG 7.40/42 point , pulse ox 91% on 4 L of oxygen. Advised to put to increase FiO2 high flow oxygen/Airvo. Pneumonia workup ordered. Started on empiric antibiotic IV Zosyn and vancomycin.I suspect patient might have aspiration pneumonia too. Triple PCR came Positive for COVID only, rest RSV and flu are negative. Started on IV remdesivir and dexamethasone. 12/14: Patient overall feeling better on high flow oxygen. Seen by director business travel. Patient is downgraded to PCU. Serum magnesium 2.2. Alkaline phosphatase 107. 12/15: Currently patient on room air. Not tachypneic. Blood culture negative for 48 hours. She feels good and wants to go home but her sister wanted to go to rehab as she will be going for her scheduled surgery. 12/16: Patient pulse ox 99% on room air. She does not have tachypnea. Respiratory status is on baseline. Patient is discharged on dexamethasone to complete a total of 10 days. 2. Acute encephalopathy probably metabolic/infectious etiology: Treat underly ing disorder. 12/14: Acute encephalopathy resolved. She is fully awake and alert. She was talking to her son on phone and said she wants to get out of here. 12/15: Patient is not acutely encephalopathic but has chronic vascular dementia from previous stroke. She even denies that she has COVID although patient was told multiple times. 12/16: Patient power of mergers and acquisitions attorney for health is her daughter first and then her sister. She cannot make decision on the complex health related's procedures and situations. 3. Suspicion of aspiration/aspiration pneumonia: During previous admission speech therapy was consulted and evaluated the patient and no aspiration or dysphagia concern was found. Consult to speech therapy. 12/14: Patient is going for cookie swallow study. 4. ESRD on hemodialysis TTS with mild hyperkalemia: [facility] Dr. Granger has been consulted.AV fistula on right forearm. Mild hyperkalemia, K. 5.2 BUN/creatinine 50/5.67. Bicarb 27 anion gap 8. Sodium 136. 12/14: Patient had shortness of dialysis yesterday. Dialysis as per area coordinator recommendation 12/15: Patient had modified barium swallow. Diagnosis mild oropharyngeal dysphagia, esophageal dysphagia. Dietary recommendation regular texture with thin liquid with compensatory strategies. Need for skilled speech therapy. 5. CAD: Patient denies chest pain/pressure. Had PCI in the past. Continue home aspirin statin Coreg. Not on TAYLOR or ARB 6. Hypertension and dyslipidemia: BP was elevated in ED 172/74. Patient on antihypertensive medication at home continued. 7. Cerebrovascular disease with previous stroke in 2019 with? vascular dementia-complicates care 8. DM type II: Glucose 285. Accu-Chek before meals and at bedtime with Humalog sliding scale coverage and hypoglycemia protocol. Home dose of Lantus and short-acting insulin continued 12/14 A1c 7.1%. Living will/advanced directive/end of life care: Patient does not have living will or advanced directive. As per the sister at the bedside, patient has power of mergers and acquisitions attorney for health, her daughter and herself. After discussion of benefits/risks procedures involved with full code, DNR CC arrest and DNR CC, the patient and her sister opted for full code. Patient does want artificial life support including intubation, tube feed, ventilator and/chest compression, central venous catheter, vasopressor and DC shock if needed Microbiology Past 72 Hours 12/14/23 06:41 Blood Culture (Wb) - Anticubital Left Blood Culture - Preliminary No growth in 48 hours. 12/15/23 12:30 Nasal Secretion MRSA (PCR) - Final 12/15/23 12:30 Urine, Clean Catch Legionella Antigen - Final 12/15/23 12:30 Urine, Clean Catch Streptococcus pneumoniae Antigen (M - Final Laboratory Results 12/16/23 08:12: POC Glucose 169 H 12/16/23 08:13: POC Glucose 189 H 12/16/23 16:33: POC Glucose > 500 H* 12/16/23 21:15: POC Glucose 288 H 12/17/23 06:06: WBC 8.7, RBC 2.74 L, Hgb 8.4 L, Hct 26.4 L, MCV 96.4, MCH 30.7, MCHC 31.8 L, RDW Std Deviation 53.6 H, RDW Coeff of [place] 15.5 H, Plt Count 170, MPV 12.9 H, Sodium 137, Potassium 4.6, Chloride 102, Carbon Dioxide 23.0, Anion Gap 12, BUN 94 H, Creatinine 6.72 H, Estim Creat Clear Calc 10.45, Est GFR (MDRD) Af Amer 8 L, Est GFR (MDRD) Non-Af 7 L, BUN/Creatinine Ratio 14.0, Glucose 134 H, Calcium 8.1 L, Total Bilirubin 0.70, AST 19, ALT 36, Alkaline Phosphatase 78, Total Protein 5.8 L, Albumin 2.7 L, Globulin 3.1, Albumin/Globulin Ratio 0.9 12/17/23 08:16: POC Glucose 127 H 12/17/23 11:32: POC Glucose 284 H Allergies/Procedures Done in Hospital Allergies No Known Allergies Allergy (Verified 12/14/23 06:14) Type of Care/Length of Stay Estimated LOS: Convalescent Care Less Than 30 days Type of Care Needed: Skilled Rehab Potential: Good Prognosis: Good Additional Orders/Day of Discharge Day of Discharge: 12/17/23 Dietary and Speech Recommendations Dietitian Recommendations/Changes: Change diet to renal regular, 1800 heather Consistent CHO, per SOFTWARE DEVELOPMENT TEST ENGINEER diet consistent/texture recommendations. Will order 120ml PO nepro with breakfast and dinner d/t increase protein needs from hemodialysis. Will monitor weight, as available. Discharge Plan Admission Admit Date/Time: 12/14/23 07:27 Primary Reason for Your Visit: COVID-19 pneumonia. COPD exacerbation Attending Provider: Mahamed Dunn Primary Care Provider: Page Sutton [facility] Consulting Providers: Ketty Granger Discharge Orders/Prescriptions Prescriptions: New guaifenesin [Mucus Relief ER] 1,200 mg Tablet Extended Release 12hr 1,200 mg PO BID 7 Days Qty: 0 0RF ipratropium-albuterol 0.5 mg-3 mg(2.5 mg base)/3 mL Solution For Nebulization 3 ml inhalation Q6H.RT PRN (Reason: sob) Qty: 0 0RF sennosides-docusate sodium [Stimulant Laxative Plus] 8.6-50 mg Tablet 2 tab PO BID PRN (Reason: Constipation) Qty: 0 0RF insulin lispro [Humalog KwikPen Insulin] 100 unit/mL Insulin Pen See Protocol subcut ACHS Qty: 0 0RF Protocol: 4. Sliding Scale Insulin High-Med Dosing Condition: 150-199 mg/dl = 2 units Condition: 200-259 mg/dl = 4 units Condition: 260-324 mg/dl = 6 units Condition: 325-374 mg/dl = 8 units Condition: 375-409 mg/dl = 10 units Condition: 410-449 mg/dl = 11 units Condition: Greater than 449 call physician Protocol Text: Suggested for: - Patients on Total Daily Insulin Dose of 56-80 units - Patient who are known to be insulin resistant or septic HIGH MEDIUM DOSING ALGORITHM cefdinir 300 mg capsule 300 mg PO BID 5 Days Qty: 10 0RF dexamethasone 6 mg tablet 6 mg PO DAILY 6 Days Qty: 6 0RF Continued torsemide 100 mg tablet 50 mg PO BID melatonin 5 mg tablet 5 mg PO HS PRN (Reason: Sleep) gabapentin 300 mg capsule 300 mg PO TID PRN (Reason: NEUROPATHY) aspirin 81 MG tablet,chewable 81 mg PO DAILY@0800 atorvastatin 80 MG tablet 80 mg PO QHS carvedilol 12.5 mg tablet 6.25 mg PO BID acetaminophen [Tylenol] 325 mg Tablet 650 mg PO Q6H PRN PRN (Reason: Pain 1-10 Or Fever) Qty: 0 0RF amlodipine 10 MG tablet 10 mg PO DAILY insulin glargine U-300 conc [Toujeo SoloStar U-300 Insulin] 300 unit/mL (1.5 mL) insulin pen 20 unit SC BREAKFAST allopurinol 100 mg tablet 100 mg PO DAILY cholecalciferol (vitamin D3) 50 mcg (2,000 unit) capsule 50 mcg PO DAILY Lagrange Caps 1 mg capsule 1 cap PO DAILY Nephro-Todd 0.8 mg tablet 1 tab PO DAILY ezetimibe 10 mg tablet 10 mg PO QHS hydralazine 100 mg tablet 100 mg PO TID 30 Days Qty: 0 0RF Rx Instructions: Hold for SBP less than 130 mmHg ipratropium-albuterol 0.5 mg-3 mg(2.5 mg base)/3 mL Solution For Nebulization 3 ml inhalation Q8H 14 Days Qty: 180 0RF nystatin [Nyamyc] 100,000 unit/gram Powder 1 applic topical BID 14 Days Qty: 1 0RF Protocol: *Topical Application Instructions APPLICATION INSTRUCTIONS: apply to groin, abdominal folds, under breasts Rx Instructions: Gently cleans skin folds w/ water/soap, pat dry, apply topical nystatin powder until complete resolution of fold redness/odor. Changed insulin aspart U-100 [Novolog FlexPen U-100 Insulin] 100 unit/mL (3 mL) insulin pen 13 unit SUBCUT BID 30 Days Qty: 0 0RF Patient Comments: AT LUNCH AND DINNER. IF BS LESS THAN 80 DO NOT GIVE Referrals / Follow Up: Bobby Irizarry DO [Med Staff - Active Staff] - Within 1 Month Ketty Granger MD [Med Staff - Consulting] - Within 1 Month Page Sutton NP, [facility] [Primary Care Provider] - Disposition Disposition (needs filled in before D/C Order can be placed): Longterm Facility
--- NOTE | 2023-12-17 11:30 | CASEMGMT ---
Discharge Planning [facility] has obtained auth to admit. Rima Camacho DC Planning Asst.
[2023-12-17] MEDS: Insulin Lispro 100 UNIT/ML INSULN.PEN SC ×2 (11:33→22:01)
[2023-12-17] MEDS: Insulin Lispro 100 UNIT/ML INSULN.PEN 13 UNIT SC (11:34)
[2023-12-17] MEDS: QUEtiapine 25 MG Tablet 50 MG PO ×2 (11:34→21:51)
[2023-12-17 11:53] LABS: Bedside Glucose 284 mg/dL (74-106)
--- NOTE | 2023-12-17 12:50 | DS.PCM_ITS ---
Providers Date of Admission: 12/14/23 Date of Discharge: 12/17/23 Primary Care Physician: TERESA Mas Consultations 12/14/23 08:46 Consult: Ceramic Saw Tender / Pulmonary Medicine Routine Consulting Provider: Pulmonary Medicine basim Henry Reason for Consult: acute hypoxic resp failure EMERGENT Consult: No Notified: Yes Date Notified: 12/14/23 Time Notified: 08:25 Method of Notification: ED Physician Initiated 12/14/23 09:36 Consult: Nephrology Routine Consulting Provider: Ketty Granger Reason for Consult: ESRD on HD EMERGENT Consult: No Notified: Yes Date Notified: 12/14/23 Time Notified: 09:36 Method of Notification: Verbal Reason For Visit: ACUTE ON CHRONIC RESP FAILURE Diagnosis Discharge Diagnosis (1) Pneumonia: Status: Acute Code(s): J18.9 - Pneumonia, unspecified organism (2) COPD exacerbation: Status: Chronic Code(s): J44.1 - Chronic obstructive pulmonary disease with (acute) exacerbation Plan This is 57-year-old female with multiple comorbidities admitted with acute onset of shortness of breath severe hypoxia and cough 1. Acute severe hypoxic respiratory failure due to bilateral COVID-19 pneumonia: Chest x-ray initially reviewed but not officially reported. It shows bilateral patchy and airspace consolidation in mid to lower lung gil[place]. Twelve-lead EKG shows sinus rhythm 84 bpm, QTc 422 ms. First-degree AV block. Patient is being admitted in ICU. ABG 7.40/42 point /, pulse ox 91% on 4 L of oxygen. Advised to put to increase FiO2 high flow oxygen/Airvo. Pneumonia workup ordered. Started on empiric antibiotic IV Zosyn and vancomycin.I suspect patient might have aspiration pneumonia too. Triple PCR came Positive for COVID only, rest RSV and flu are negative. Started on IV remdesivir and dexamethasone. 12/14: Patient overall feeling better on high flow oxygen. Seen by driller brake lining. Patient is downgraded to PCU. Serum magnesium 2.2. Alkaline phosphatase 107. 12/15: Currently patient on room air. Not tachypneic. Blood culture negative for 48 hours. She feels good and wants to go home but her sister wanted to go to rehab as she will be going for her scheduled surgery. 12/16: Patient pulse ox 99% on room air. She does not have tachypnea. Respiratory status is on baseline. Patient is discharged on dexamethasone to complete a total of 10 days. Blood culture negative for 48 hours. She had 4 doses of Levaquin 750 mg daily 1 more dose to continue. 2. Acute encephalopathy probably metabolic/infectious etiology: Treat underlying disorder. 12/14: Acute encephalopathy resolved. She is fully awake and alert. She was talking to her son on phone and said she wants to get out of here. 12/15: Patient is not acutely encephalopathic but has chronic vascular dementia from previous stroke. She even denies that she has COVID although patient was told multiple times. 12/16: Patient power of assistant prosecuting attorney for health is her daughter first and then her sister. She cannot make decision on the complex health related's procedures and situations. 3. Suspicion of aspiration/aspiration pneumonia: During previous admission speech therapy was consulted and evaluated the patient and no aspiration or dysphagia concern was found. Consult to speech therapy. 12/14: Patient is going for cookie swallow study. 4. ESRD on hemodialysis TTS with mild hyperkalemia: Machine Filler Shredder Dr. Granger has been consulted.AV fistula on right forearm. Mild hyperkalemia, K. 5.2 BUN/creatinine 50/5.67. Bicarb 27 anion gap 8. Sodium 136. 12/14: Patient had shortness of dialysis yesterday. Dialysis as per shotgun shell assembly machine adjuster recommendation 12/15: Patient had modified barium swallow. Diagnosis mild oropharyngeal dysphagia, esophageal dysphagia. Dietary recommendation regular texture with thin liquid with compensatory strategies. Need for skilled speech therapy. 5. CAD: Patient denies chest pain/pressure. Had PCI in the past. Continue home aspirin statin Coreg. Not on TAYLOR or ARB 6. Hypertension and dyslipidemia: BP was elevated in ED 172/74. Patient on antihypertensive medication at home continued. 7. Cerebrovascular disease with previous stroke in 2019 with? vascular dementia-complicates care 8. DM type II: Glucose 285. Accu-Chek before meals and at bedtime with Humalog sliding scale coverage and hypoglycemia protocol. Home dose of Lantus and short-acting insulin continued 12/14 A1c 7.1%. Living will/advanced directive/end of life care: Patient does not have living will or advanced directive. As per the sister at the bedside, patient has power of assistant prosecuting attorney for health, her daughter and herself. After discussion of benefits/risks procedures involved with full code, DNR CC arrest and DNR CC, the patient and her sister opted for full code. Patient does want artificial life support including intubation, tube feed, ventilator and/chest compression, central venous catheter, vasopressor and DC shock if needed Microbiology Past 72 Hours 12/14/23 06:41 Blood Culture (Wb) - Anticubital Left Blood Culture - Preliminary No growth in 48 hours. 12/15/23 12:30 Nasal Secretion MRSA (PCR) - Final 12/15/23 12:30 Urine, Clean Catch Legionella Antigen - Final 12/15/23 12:30 Urine, Clean Catch Streptococcus pneumoniae Antigen (M - Final Laboratory Results 12/16/23 08:12: POC Glucose 169 H 12/16/23 08:13: POC Glucose 189 H 12/16/23 16:33: POC Glucose > 500 H* 12/16/23 21:15: POC Glucose 288 H 12/17/23 06:06: WBC 8.7, RBC 2.74 L, Hgb 8.4 L, Hct 26.4 L, MCV 96.4, MCH 30.7, MCHC 31.8 L, RDW Std Deviation 53.6 H, RDW Coeff of Chichi 15.5 H, Plt Count 170, M PV 12.9 H, Sodium 137, Potassium 4.6, Chloride 102, Carbon Dioxide 23.0, Anion Gap 12, BUN 94 H, Creatinine 6.72 H, Estim Creat Clear Calc 10.45, Est GFR (MDRD) Af Amer 8 L, Est GFR (MDRD) Non-Af 7 L, BUN/Creatinine Ratio 14.0, G lucose 134 H, Calcium 8.1 L, Total Bilirubin 0.70, AST 19, ALT 36, Alkaline Phosphatase 78, Total Protein 5.8 L, Albumin 2.7 L, Globulin 3.1, Albumin/Globulin Ratio 0.9 12/17/23 08:16: POC Glucose 127 H 12/17/23 11:32: POC Glucose 284 H Medications at Discharge Home Medications aspirin 81 mg chewable tablet 81 mg PO DAILY@0800 HEART HEALTH 07/15/18 atorvastatin 80 mg tablet 80 mg PO QHS CHOLESTEROL 08/04/18 torsemide 100 mg tablet 50 mg PO BID diuretic 04/14/19 melatonin 5 mg tablet 5 mg PO HS PRN Sleep 08/03/20 carvedilol 12.5 mg tablet 6.25 mg PO BID blood pressure 09/20/20 acetaminophen 325 mg tablet (Tylenol) 650 mg (2 x 325 mg) PO Q6H PRN PRN Pain 1- 10 Or Fever #0 tabs 10/03/20 amlodipine 10 mg tablet 10 mg PO DAILY blood pressure 01/20/21 insulin glargine U-300 conc 300 unit/mL (1.5 mL) subcutaneous pen (Toujeo SoloStar U-300 Insulin) 20 unit subcut BREAKFAST diabetes 03/21/21 gabapentin 300 mg capsule 300 mg PO TID PRN NEUROPATHY 12/10/22 allopurinol 100 mg tablet 100 mg PO DAILY 01/13/23 cholecalciferol (vitamin D3) 50 mcg (2,000 unit) capsule 50 mcg PO DAILY 01/13/23 ezetimibe 10 mg tablet 10 mg PO QHS 01/13/23 vitamin B complex and vitamin C no.20-folic acid 1 mg capsule (Upson Caps) 1 cap PO DAILY 01/13/23 vitamin B complex-vitamin C-folic acid 0.8 mg tablet (Nephro-Todd) 1 tab PO DAILY 01/13/23 ipratropium 0.5 mg-albuterol 3 mg (2.5 mg base)/3 mL nebulization soln 3 ml inhalation Q8H COPD exacerbation/Pneumonia 14 days #180 mL 11/21/23 nystatin 100,000 unit/gram topical powder (Nyamyc) 1 applic topical BID 14 days #1 BOTTLE 11/21/23 cefdinir 300 mg capsule 300 mg PO BID 5 days #10 caps 12/17/23 dexamethasone 6 mg tablet 6 mg PO DAILY 6 days #6 tabs 12/17/23 guaifenesin 1,200 mg tablet, extended release 12 hr (Mucus Relief ER) 1,200 mg PO BID 7 days #0 tabs 12/17/23 hydralazine 100 mg tablet 100 mg PO TID 30 days #0 tabs 12/17/23 insulin aspart U-100 100 unit/mL (3 mL) subcutaneous pen (Novolog FlexPen U-100 Insulin aspart) 13 unit (0.13 mL) subcut BID blood sugar 30 days #0 mL 12/17/23 insulin lispro 100 unit/mL subcutaneous pen (Humalog KwikPen (U-100) Insulin) See Protocol subcut ACHS #0 mL 12/17/23 ipratropium 0.5 mg-albuterol 3 mg (2.5 mg base)/3 mL nebulization soln 3 ml inhalation Q6H.RT PRN sob #0 mL 12/17/23 sennosides 8.6 mg-docusate sodium 50 mg tablet (Stimulant Laxative Plus) 2 tab PO BID PRN Constipation #0 tabs 12/17/23 Physical Exam Narrative Overall patient is feeling better. Patient respiratory status is on baseline she denies shortness of breath or chest pain and feels better. Patient does not understand or has insight about her disease. She was told that she has COVID-19 but denied it. She is also on insulin and medications and her sister was helping in administration therefore she needs to go to residential. Physical exam General: Awake, alert and oriented x 3 HEENT: Atraumatic, PERRLA, EOMI, Normocephalic Oral: No Gingival or Mucosal Lesions/ Ulcerations Neck: Supple, No JVD, Negative Carotid Bruits Chest wall/Lungs: Air entry diminished in all lung field. Mild expiratory rhonchi. Cardiovascular: sinus rhythm, Normal S1, Normal S2, No M/G/R Abdomen: Bowel Sounds Present, Soft, Non Tender, Non-Distended : Makes some urine. On hemodialysis. No dysuria. No renal angle tenderness. No suprapubic tenderness. Extremities: Mild bilateral pitting edema, Capillary Refill Less than 3 Seconds Skin: No rashes, No breakdown Musculoskeletal: No Tenderness to Palpation of Joints or Extremities Neurological: Cranial nerves II-XII grossly intact, DTR 2+/4. Nonfocal exam. Psych/Mental Status: flat affect. She talks but does not make much sense. Vascular dementia Weight / BMI Weight Weight: 236 lb 15.951 oz Body Mass Index (BMI) 44.7 ABG / Lab / Microbiology Data 12/17/23 06:06 12/17/23 06:06 Laboratory: Laboratory Results - last 24 hr 12/16/23 08:12: POC Glucose 169 H 12/16/23 08:13: POC Glucose 189 H 12/16/23 16:33: POC Glucose > 500 H* 12/16/23 21:15: POC Glucose 288 H 12/17/23 06:06: WBC 8.7, RBC 2.74 L, Hgb 8.4 L, Hct 26.4 L, MCV 96.4, MCH 30.7, MCHC 31.8 L, RDW Std Deviation 53.6 H, RDW Coeff of Chichi 15.5 H, Plt Count 170, M PV 12.9 H, Sodium 137, Potassium 4.6, Chloride 102, Carbon Dioxide 23.0, Anion Gap 12, BUN 94 H, Creatinine 6.72 H, Estim Creat Clear Calc 10.45, Est GFR (MDRD) Af Amer 8 L, Est GFR (MDRD) Non-Af 7 L, BUN/Creatinine Ratio 14.0, G lucose 134 H, Calcium 8.1 L, Total Bilirubin 0.70, AST 19, ALT 36, Alkaline Phosphatase 78, Total Protein 5.8 L, Albumin 2.7 L, Globulin 3.1, Albumin/Globulin Ratio 0.9 12/17/23 08:16: POC Glucose 127 H 12/17/23 11:32: POC Glucose 284 H Microbiology: Microbiology 12/14/23 06:41 Blood Culture (Wb) - Anticubital Left Blood Culture - Preliminary No growth in 48 hours. 12/15/23 12:30 Nasal Secretion MRSA (PCR) - Final 12/15/23 12:30 Urine, Clean Catch Legionella Antigen - Final 12/15/23 12:30 Urine, Clean Catch Streptococcus pneumoniae Antigen (M - Final 12/14/23 07:14 Mucosa - Nose SARS-CoV-2, Influenza & RSV (PCR) - Final SARS-CoV-2 (COVID 19 PCR) Meaningful Use Info Meaningful Use Meaningful Use Diagnoses (Choose all that apply): None applicable Ischemic Stroke Statin Dosing Therapy Reference: STATIN DOSE THERAPY REFERENCE: * Patients > 75 years receive moderate or high dose statin therapy. * Patients 75 years or YOUNGER should receive HIGH intensity statin dose unless contraindicated. You will be required to document reason for non-treatment if statin daily dose does not meet guidelines. HIGH DOSE STATIN THERAPY DAILY Atorvastatin > than or = to 40 mg Rosuvastatin > than or = to 20 mg Amlodipine + Atorvastatin > than or = to 2.5/40 mg Ezetimibe + Simvastatin 10/80 mg Simvastatin 80mg Discharge Plan Admission Admit Date/Time: 12/14/23 07:27 Primary Reason for Your Visit: COVID-19 pneumonia. COPD exacerbation Attending Provider: Mahamed Dunn Primary Care Provider: Page Sutton MATCH UP PERSON Consulting Providers: Ketty Granger Discharge Orders/Prescriptions Prescriptions: New guaifenesin [Mucus Relief ER] 1,200 mg Tablet Extended Release 12hr 1,200 mg PO BID 7 Days Qty: 0 0RF ipratropium-albuterol 0.5 mg-3 mg(2.5 mg base)/3 mL Solution For Nebulization 3 ml inhalation Q6H.RT PRN (Reason: sob) Qty: 0 0RF sennosides-docusate sodium [Stimulant Laxative Plus] 8.6-50 mg Tablet 2 tab PO BID PRN (Reason: Constipation) Qty: 0 0RF insulin lispro [Humalog KwikPen Insulin] 100 unit/mL Insulin Pen See Protocol subcut ACHS Qty: 0 0RF Protocol: 4. Sliding Scale Insulin High-Med Dosing Condition: 150-199 mg/dl = 2 units Condition: 200-259 mg/dl = 4 units Condition: 260-324 mg/dl = 6 units Condition: 325-374 mg/dl = 8 units Condition: 375-409 mg/dl = 10 units Condition: 410-449 mg/dl = 11 units Condition: Greater than 449 call physician Protocol Text: Suggested for: - Patients on Total Daily Insulin Dose of 56-80 units - Patient who are known to be insulin resistant or septic HIGH MEDIUM DOSING ALGORITHM cefdinir 300 mg capsule 300 mg PO BID 5 Days Qty: 10 0RF dexamethasone 6 mg tablet 6 mg PO DAILY 6 Days Qty: 6 0RF Continued torsemide 100 mg tablet 50 mg PO BID melatonin 5 mg tablet 5 mg PO HS PRN (Reason: Sleep) gabapentin 300 mg capsule 300 mg PO TID PRN (Reason: NEUROPATHY) aspirin 81 MG tablet,chewable 81 mg PO DAILY@0800 atorvastatin 80 MG tablet 80 mg PO QHS carvedilol 12.5 mg tablet 6.25 mg PO BID acetaminophen [Tylenol] 325 mg Tablet 650 mg PO Q6H PRN PRN (Reason: Pain 1-10 Or Fever) Qty: 0 0RF amlodipine 10 MG tablet 10 mg PO DAILY insulin glargine U-300 conc [Toujeo SoloStar U-300 Insulin] 300 unit/mL (1.5 mL) insulin pen 20 unit SC BREAKFAST allopurinol 100 mg tablet 100 mg PO DAILY cholecalciferol (vitamin D3) 50 mcg (2,000 unit) capsule 50 mcg PO DAILY Upson Caps 1 mg capsule 1 cap PO DAILY Nephro-Todd 0.8 mg tablet 1 tab PO DAILY ezetimibe 10 mg tablet 10 mg PO QHS hydralazine 100 mg tablet 100 mg PO TID 30 Days Qty: 0 0RF Rx Instructions: Hold for SBP less than 130 mmHg ipratropium-albuterol 0.5 mg-3 mg(2.5 mg base)/3 mL Solution For Nebulization 3 ml inhalation Q8H 14 Days Qty: 180 0RF nystatin [Nyamyc] 100,000 unit/gram Powder 1 applic topical BID 14 Days Qty: 1 0RF Protocol: *Topical Application Instructions APPLICATION INSTRUCTIONS: apply to groin, abdominal folds, under breasts Rx Instructions: Gently cleans skin folds w/ water/soap, pat dry, apply topical nystatin powder until complete resolution of fold redness/odor. Changed insulin aspart U-100 [Novolog FlexPen U-100 Insulin] 100 unit/mL (3 mL) insulin pen 13 unit SUBCUT BID 30 Days Qty: 0 0RF Patient Comments: AT LUNCH AND DINNER. IF BS LESS THAN 80 DO NOT GIVE Referrals / Follow Up: Bobby Irizarry DO [Med Staff - Active Staff] - Within 1 Month Ketty Granger MD [Med Staff - Consulting] - Within 1 Month Page Sutton NP, MATCH UP PERSON-C [Primary Care Provider] - Disposition Disposition (needs filled in before D/C Order can be placed): [facility] Facility Charges/Coding Visit Charges Inpatient E&M: 82434 Disch Hosp >30min
--- NOTE | 2023-12-17 14:26 | CASEMGMT ---
Patient will get dialysis today before she is discharged. [facility] will transport patient to her dialysis in [place] until something opens up at [place]. SW will communicate this with the group home and patient's sister. Plan: d/c to [facility] under intermediate level of care on a convalescent stay. Physicians will transport patient via cot. Patti Law COVERED BUTTON MAKERMoisés SEQUEIRA
--- NOTE | 2023-12-17 14:59 | CASEMGMT ---
Discharge Planning Discharge orders, signed med list, and transport time sent to [facility] via [facility]. Physicians will transport patient by cot at 7:30p. Nursing and SW updated. Rima Camacho DC Planning Asst.
--- NOTE | 2023-12-17 15:01 | CASEMGMT ---
SW called patient's sister Stephy and let her know patient was approved and will be going to [facility] today at 730. Stephy said patient is okay with it. She talked with patient about it again today and patient understands. Plan: d/c to [facility] under intermediate level of care on a convalescent stay. Physicians will transport patient via cot. Patti SEQUEIRA
--- NOTE | 2023-12-17 15:52 | PCM.PN.REN ---
Subjective Subjective no new events Objective Data Objective Data Vital Signs: Vital Signs Temp Pulse Resp BP Pulse Ox O2 Del Method O2 Flow Rate 97.8 F 84 18 133/64 H 98 Room Air 3 12/17/23 13:51 12/17/23 15:00 12/17/23 15:00 12/17/23 15:00 12/17/23 15:00 12/17/23 15:00 12/16/23 07:07 FiO2 43 12/15/23 07:00 Oxygen Flow Rate (L/min) 3 Oxygen Delivery Method Room Air Weight: 108.862 kg Body Mass Index (BMI) 45.3 Intake & Output: Intake and Output for Last 24 Hours 12/15/23 12/16/23 12/17/23 23:59 23:59 23:59 Intake Total 1100 / 1100 650 / 850 300 / 300 Output Total 3380 / 3380 Balance -2280 / -2280 650 / 850 300 / 300 Lab / Micro Data 12/17/23 06:06 12/17/23 06:06 Labs: Laboratory Results - last 24 hr 12/16/23 16:33: POC Glucose > 500 H* 12/16/23 21:15: POC Glucose 288 H 12/17/23 06:06: WBC 8.7, RBC 2.74 L, Hgb 8.4 L, Hct 26.4 L, MCV 96.4, MCH 30.7, MCHC 31.8 L, RDW Std Deviation 53.6 H, RDW Coeff of Chichi 15.5 H, Plt Count 170, MPV 12.9 H, Sodium 137, Potassium 4.6, Chloride 102, Carbon Dioxide 23.0, Anion Gap 12, BUN 94 H, Creatinine 6.72 H, Estim Creat Clear Calc 10.45, Est GFR (MDRD) Af Amer 8 L, Est GFR (MDRD) Non-Af 7 L, BUN/Creatinine Ratio 14.0, Glucose 134 H, Calcium 8.1 L, Total Bilirubin 0.70, AST 19, ALT 36, Alkaline Phosphatase 78, Total Protein 5.8 L, Albumin 2.7 L, Globulin 3.1, Albumin/Globulin Ratio 0.9 12/17/23 08:16: POC Glucose 127 H 12/17/23 11:32: POC Glucose 284 H Micro: Microbiology 12/14/23 06:41 Blood Culture (Wb) - Anticubital Left Blood Culture - Preliminary No growth in 48 hours. 12/15/23 12:30 Nasal Secretion MRSA (PCR) - Final 12/15/23 12:30 Urine, Clean Catch Legionella Antigen - Final 12/15/23 12:30 Urine, Clean Catch Streptococcus pneumoniae Antigen (M - Final 12/14/23 07:14 Mucosa - Nose SARS-CoV-2, Influenza & RSV (PCR) - Final SARS-CoV-2 (COVID 19 PCR) Physical Exam Narrative Alert to name, no apparent distress S1, S2, RRR Breath sounds clear anteriorly Abdomen soft, nontender No pitting edema AV fistula right arm positive thrill and bruit Assessment & Plan Assessment/Plan (1) ESRD (end stage renal disease) on dialysis: (2) Pneumonia: (3) COVID: PLAN: Plan This is a 57-year-old female with past medical history significant for ESRD who currently dialyzes via AV fistula Thursday schedule [facility] admitted to ICU for acute respiratory failure secondary to COVID-pneumonia. Nephrology consulted in view of ESRD management. Admission chest x-ray chest x-ray bilateral pneumonia and/or pulmonary edema. Patient underwent ultrafiltration with around 3 L fluid removal on Thursday and had hemodialysis with fluid removal. Oxygenation has improved now on room air. Plan for dialysis today. Possible discharge to rehab, waiting on placement. See dialysis orders.
[2023-12-17] MEDS: 0.9% Normal Saline 1,000 ML IV.SOLN. 1000 ML OPERA.SITE (16:32)
[2023-12-17] MEDS: PureFlow B 2K Dialysis Soln 1 BAG 6 BAG PF (16:32)
--- NOTE | 2023-12-17 16:40 | NURSING ---
Called report to nurse Mitchell at [facility] [place]
[2023-12-17 17:03] LABS: Bedside Glucose 308 mg/dL (74-106)
[2023-12-17] MEDS: Ezetimibe 10 MG Tablet PO (21:52)
[2023-12-17] MEDS: Atorvastatin Calcium 80 MG Tablet PO (21:52)
[2023-12-17] MEDS: Insulin Glargine-YFGN 100 UNIT/ML Pen 10 UNIT SC (21:58)
[2023-12-17] MEDS: Acetaminophen 325 MG Tablet 650 MG PO (23:31)
[2023-12-17 23:57] LABS: Bedside Glucose 357 mg/dL (74-106)
== END 2023-12-18 00:45 | disposition skilled nursing facility (03) | DRG 177 ==
LOC: ED 07:31 → ICU 08:09 → PCU 12-15 15:29
PROVIDERS: Internal Medicine Critical Care Medicine; Admitting Provider Internal Medicine; Emergency Provider Emergency Medicine; PCP Nurse Practitioner Family; Visit Provider Internal Medicine
DX: U07.1 COVID-19 (principal); J96.01 Acute respiratory failure with hypoxia; J69.0 Pneumonitis due to inhalation of food and vomit; J12.82 Pneumonia due to coronavirus disease 2019; N18.6 End stage renal disease; I13.2 Hypertensive heart and chronic kidney disease with heart failure and with stage 5 chronic kidney disease, or end stage renal disease; J44.1 Chronic obstructive pulmonary disease with (acute) exacerbation; Z68.41 Body mass index [BMI] 40.0-44.9, adult; I50.32 Chronic diastolic (congestive) heart failure; E11.22 Type 2 diabetes mellitus with diabetic chronic kidney disease; F01.50 Vascular dementia, unspecified severity, without behavioral disturbance, psychotic disturbance, mood disturbance, and anxiety; I69.398 Other sequelae of cerebral infarction; E66.01 Morbid (severe) obesity due to excess calories; I25.10 Atherosclerotic heart disease of native coronary artery without angina pectoris; E78.5 Hyperlipidemia, unspecified; E87.5 Hyperkalemia; Z99.2 Dependence on renal dialysis; Z79.4 Long term (current) use of insulin; R13.12 Dysphagia, oropharyngeal phase; Z99.81 Dependence on supplemental oxygen; Z79.82 Long term (current) use of aspirin; Z86.16 Personal history of COVID-19; Z87.891 Personal history of nicotine dependence; Z95.5 Presence of coronary angioplasty implant and graft
CPT/HCPCS: 36415; 36600; 71045; 74230; 80048; 80053; 80076; 80202; 82803; 82962; 83036; 83605; 83690; 83735; 84075; 84484; 85025; 85027; 87040; 87449; 87631; 87641; 90937; 92610; 92611; 93005; 94640; 94660; 97161; 97166; 99282; J7030; J7040; J7050; A4216; G0257; J0248; J1940; J2405

== ENCOUNTER 2024-03-12 17:35 | Emergency (ER) | payer MEDICARE, MEDICAID, SELFPAY ==
[2024-03-12 17:36] VITALS: BP 151/136; PULSE 76; RESP 19; TEMP 36.8; O2SAT 99
[2024-03-12 17:43] VITALS: BMI 44.6
[2024-03-12] MEDS: Ondansetron ODT 4 MG Tablet 8 MG PO (17:55)
[2024-03-12] MEDS: Acetaminophen 325 MG Tablet 650 MG PO (17:55)
--- NOTE | 2024-03-12 17:58 | EDS_ITS ---
HPI HPI - URI History of Present Illness Chief Complaint: Ear Problem Informant: patient and friend Narrative Narrative: 58-year-old female brought by her friend after starting to get sick today for less than 12 hours, with runny nose congestion bilateral earache sore throat and a cough. When asked if she has a headache she states I had headaches every day for the last couple weeks. She was nauseated and vomited earlier a little. No abdominal pain or diarrhea. She denies having a headache right now. She denies any dyspnea. No fevers or chills. She is a dialysis patient. 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 ROS ROS ED Constitutional Constitutional ED: Denies chills or fever(s) ENT ENT ED: Reports ear pain bilateral, nasal congestion, rhinorrhea and sore throat; Denies sinus pain Cardiovascular Cardiovascular: Denies chest pain or palpitations Respiratory/Chest Respiratory/Chest: Reports cough; Denies dyspnea Gastrointestinal Gastrointestinal: Reports nausea and vomiting; Denies abdominal pain or diarrhea Genitourinary Genitourinary ED: Denies dysuria or hematuria Musculoskeletal Musculoskeletal: Denies myalgias or neck pain Integumentary Denies abscess or rash Neurologic Neurologic: Denies headache(s), paresthesias or weakness Psychiatric Psychiatric: Denies depression or suicidal thoughts Endocrine Endocrinology: Denies polydipsia or polyuria PFSH PFSH Medical History ESRD (end stage renal disease) on dialysis Dependence on renal dialysis Easy bruising Dietary restriction History of edema Hx of cardiovascular stress test Hx of echocardiogram Cardiology follow-up encounter TIA (transient ischemic attack) Acute alteration in mental status Community acquired pneumonia ESRD (end stage renal disease) on dialysis Wears glasses Insulin dependent diabetes mellitus Low iron Former smoker Cardiology follow-up encounter Chronic heart failure with preserved ejection fraction (HFpEF) History of non-ST elevation myocardial infarction (NSTEMI) (01/20/21) Debility COVID-19 (01/20/21) Inability to walk Generalized weakness Non-STEMI (non-ST elevated myocardial infarction) (01/20/21) Ischemic cerebrovascular accident (CVA) (04/2018) Respiratory insufficiency Hypoxia Anxiety Bilateral carotid bruits Hyperlipidemia Malignant hypertension Headache Type 2 diabetes mellitus without complication Essential hypertension Atherosclerosis of coronary artery of [place] heart without angina pectoris GERD (gastroesophageal reflux disease) Depression History of renal calculi History of cholelithiasis Morbid obesity Acute renal injury due to circulatory failure Home Medications ?Medication ?Instructions ?Recorded ?Last Taken ?Type aspirin 81 mg chewable tablet 81 mg PO DAILY@0800 HEART HEALTH 07/15/18 04/26/23 History atorvastatin 80 mg tablet 80 mg PO QHS CHOLESTEROL 08/04/18 04/26/23 History torsemide 100 mg tablet 50 mg PO BID diuretic 04/14/19 04/26/23 History melatonin 5 mg tablet 5 mg PO HS PRN Sleep 08/03/20 01/19/21 History carvedilol 12.5 mg tablet 6.25 mg PO BID blood pressure 09/20/20 04/27/23 History acetaminophen 325 mg tablet 650 mg (2 x 325 mg) PO Q6H PRN PRN 10/03/20 Unknown Rx (Tylenol) Pain 1-10 Or Fever #0 tabs amlodipine 10 mg tablet 10 mg PO DAILY blood pressure 01/20/21 04/27/23 History insulin glargine U-300 conc 300 20 unit subcut BREAKFAST diabetes 03/21/21 04/26/23 History unit/mL (1.5 mL) subcutaneous pen ([employer] SoloStar U-300 Insulin) gabapentin 300 mg capsule 300 mg PO TID PRN NEUROPATHY 12/10/22 Unknown History allopurinol 100 mg tablet 100 mg PO DAILY 01/13/23 04/26/23 History cholecalciferol (vitamin D3) 50 50 mcg PO DAILY 01/13/23 04/26/23 History mcg (2,000 unit) capsule ezetimibe 10 mg tablet 10 mg PO QHS 01/13/23 04/26/23 History vitamin B complex and vitamin C 1 cap PO DAILY 01/13/23 04/26/23 History no.20-folic acid 1 mg capsule ([place] Caps) vitamin B complex-vitamin C-folic 1 tab PO DAILY 01/13/23 04/26/23 History acid 0.8 mg tablet (Nephro-Todd) ipratropium 0.5 mg-albuterol 3 mg 3 ml inhalation Q8H COPD 11/21/23 Unknown Rx (2.5 mg base)/3 mL nebulization exacerbation/Pneumonia 14 days soln #180 mL nystatin 100,000 unit/gram topical 1 applic topical BID 14 days #1 11/21/23 Unknown Rx powder ([facility]) BOTTLE cefdinir 300 mg capsule 300 mg PO BID 5 days #10 caps 12/17/23 Unknown Rx dexamethasone 6 mg tablet 6 mg PO DAILY 6 days #6 tabs 12/17/23 Unknown Rx guaifenesin 1,200 mg tablet, 1,200 mg PO BID 7 days #0 tabs 12/17/23 Unknown Rx extended release 12 hr (Mucus Relief ER) hydralazine 100 mg tablet 100 mg PO TID 30 days #0 tabs 12/17/23 Unknown Rx insulin aspart U-100 100 unit/mL 13 unit (0.13 mL) subcut BID blood 12/17/23 04/26/23 Rx (3 mL) subcutaneous pen (Novolog sugar 30 days #0 mL FlexPen U-100 Insulin aspart) insulin lispro 100 unit/mL See Protocol subcut ACHS #0 mL 12/17/23 Unknown Rx subcutaneous pen (Humalog KwikPen (U-100) Insulin) ipratropium 0.5 mg-albuterol 3 mg 3 ml inhalation Q6H.RT PRN sob #0 12/17/23 Unknown Rx (2.5 mg base)/3 mL nebulization mL soln sennosides 8.6 mg-docusate sodium 2 tab PO BID PRN Constipation #0 12/17/23 Unknown Rx 50 mg tablet (Stimulant Laxative tabs Plus) Allergy/AdvReac Type Severity Reaction Status Date / Time No Known Allergies Allergy Verified 12/14/23 06:14 Family History Mother Diabetes Heart disease Hypertension Father Hypertension Heart disease Brother Heart disease Hypertension Sister Heart disease Diabetes Surgical History History of surgery History of arteriovenostomy for renal dialysis (~03/2021) History of History of appendectomy History of cholecystectomy History of coronary artery stent placement (06/2016) History of left heart catheterization (05/27/21) Social History Smoking Status: Former smoker alcohol intake: never EXAM Physical Exam Const Vital Signs: 03/12/24 17:36 Temperature 98.2 F Temperature Source Temporal Pulse Rate 76 Respiratory Rate 19 H Blood Pressure 151/136 H Blood Pressure Mean 141 Pulse Ox 99 Oxygen Delivery Method Room Air Positive well nourished and well developed General Appearance ED: well developed and NAD HEENT Reports moist mucous membranes HEENT Narrative: TMs normal bilaterally normocephalic and atraumatic Throat: posterior oropharynx normal; Negative for posterior oropharynx abnormal Eyes PERRL and EOMs intact bilaterally Neck no lymphadenopathy, supple, no meningeal signs and no JVD Resp normal respiratory effort and clear to auscultation bilaterally Cardio no murmurs Rate: regular rate Rhythm: regular rhythm GI non-tender and non-distended Auscultation: normoactive bowel sounds Palpation: soft Back/Spine no CVA tenderness and normal ROM Extremity normal to inspection and full ROM Neuro CN's II-XII intact bilaterally and no sensory deficits noted Sensorium / Orientation: alert Motor Exam: strength 5/5 throughout Psych mental status grossly normal Skin Lesions: no lesions Rashes: no rashes MDM MDM MDM Narrative Medical decision making narrative: Given the vomiting obtained a two-view chest x-ray, considering etiologies such as atypical pneumonia/mycoplasma which has been prevalent in the area recently, as well as obtaining a COVID/influenza/RSV swab. Multiple other respiratory viruses also on the differential. Chest x-ray 2 views of my interpretation are normal radiology was agreement, for swabbing back positive for COVID. Her vital signs are normal including pulse ox 99% room air. Reassured and discharged with appropriate instructions. Radiography Diagnostic Testing: Clinical Impression(s) from Imaging Studies Chest X-Ray 03/12/24 18:05 IMPRESSION: No radiographic evidence of acute cardiopulmonary disease. Electronically Signed: Nereyda Noe MD at 18:53 EST Reading Location ID and State: [id number] / Tel , Service support , Discharge Plan Triage Chief Complaint: Ear Problem ED Provider: Michelet Harper Dx/Rx/DC Orders Clinical Impression: COVID-19 Instructions: Coronavirus Disease 2019 (COVID-19): Caring for Yourself or Others Prescriptions: No Action torsemide 100 mg tablet 50 mg PO BID melatonin 5 mg tablet 5 mg PO HS PRN (Reason: Sleep) gabapentin 300 mg capsule 300 mg PO TID PRN (Reason: NEUROPATHY) aspirin 81 MG tablet,chewable 81 mg PO DAILY@0800 atorvastatin 80 MG tablet 80 mg PO QHS carvedilol 12.5 mg tablet 6.25 mg PO BID acetaminophen [Tylenol] 325 mg Tablet 650 mg PO Q6H PRN PRN (Reason: Pain 1-10 Or Fever) Qty: 0 0RF amlodipine 10 MG tablet 10 mg PO DAILY insulin glargine U-300 conc [[employer] SoloStar U-300 Insulin] 300 unit/mL (1.5 mL) insulin pen 20 unit SC BREAKFAST allopurinol 100 mg tablet 100 mg PO DAILY cholecalciferol (vitamin D3) 50 mcg (2,000 unit) capsule 50 mcg PO DAILY [place] Caps 1 mg capsule 1 cap PO DAILY Nephro-Todd 0.8 mg tablet 1 tab PO DAILY ezetimibe 10 mg tablet 10 mg PO QHS guaifenesin [Mucus Relief ER] 1,200 mg Tablet Extended Release 12hr 1,200 mg PO BID 7 Days Qty: 0 0RF ipratropium-albuterol 0.5 mg-3 mg(2.5 mg base)/3 mL Solution For Nebulization 3 ml inhalation Q6H.RT PRN (Reason: sob) Qty: 0 0RF sennosides-docusate sodium [Stimulant Laxative Plus] 8.6-50 mg Tablet 2 tab PO BID PRN (Reason: Constipation) Qty: 0 0RF insulin lispro [Humalog KwikPen Insulin] 100 unit/mL Insulin Pen See Protocol subcut ACHS Qty: 0 0RF Protocol: 4. Sliding Scale Insulin High-Med Dosing Condition: 150-199 mg/dl = 2 units Condition: 200-259 mg/dl = 4 units Condition: 260-324 mg/dl = 6 units Condition: 325-374 mg/dl = 8 units Condition: 375-409 mg/dl = 10 units Condition: 410-449 mg/dl = 11 units Condition: Greater than 449 call physician Protocol Text: Suggested for: - Patients on Total Daily Insulin Dose of 56-80 units - Patient who are known to be insulin resistant or septic HIGH MEDIUM DOSING ALGORITHM cefdinir 300 mg capsule 300 mg PO BID 5 Days Qty: 10 0RF dexamethasone 6 mg tablet 6 mg PO DAILY 6 Days Qty: 6 0RF hydralazine 100 mg tablet 100 mg PO TID 30 Days Qty: 0 0RF Rx Instructions: Hold for SBP less than 130 mmHg insulin aspart U-100 [Novolog FlexPen U-100 Insulin] 100 unit/mL (3 mL) insul in pen 13 unit SUBCUT BID 30 Days Qty: 0 0RF Patient Comments: AT LUNCH AND DINNER. IF BS LESS THAN 80 DO NOT GIVE ipratropium-albuterol 0.5 mg-3 mg(2.5 mg base)/3 mL Solution For Nebulization 3 ml inhalation Q8H 14 Days Qty: 180 0RF nystatin [Nyamyc] 100,000 unit/gram Powder 1 applic topical BID 14 Days Qty: 1 0RF Protocol: *Topical Application Instructions APPLICATION INSTRUCTIONS: apply to groin, abdominal folds, under breasts Rx Instructions: Gently cleans skin folds w/ water/soap, pat dry, apply topical nystatin powder until complete resolution of fold redness/odor. Stand Alone Forms: ED Work / School Excuse Primary Care Provider: Page Sutton NP Referrals: Page Sutton NP, [employer] [Primary Care Provider] - Activity Restrictions/Additional Instructions: Try to get a home portable pulse oximeter and closely watch your oxygen levels periodically. If you stay below 90% for more than a minute or so, and/or you are feeling like your breathing is getting worse, return to the emergency department for further evaluation. Currently, CDC recommendations state that you should stay home through day 5 of symptoms, then as long as symptoms are improving, if you need to go to work or somewhere else you may for days 6-10 as long as you are wearing a mask the entire time. If you are feeling better after day 10 you may resume life is normal. Print Language: Occitan Disposition Disposition: Home, Self Care
--- NOTE | 2024-03-12 18:05 | RAD_ITS ---
INDICATION: cough, vomiting EXAMINATION/TECHNIQUE: X-RAY - XR Chest 2 Views COMPARISON: 12/14/2023. FINDINGS: LINES/DEVICES: None. LUNGS: No consolidation, edema or effusion. No pneumothorax. MEDIASTINUM AND CARDIOVASCULAR STRUCTURES: Cardiac silhouette not enlarged. Cardiac stent. Central airways and mediastinal contour are unremarkable. BONES AND SOFT TISSUES: Unremarkable. RAD/Chest PA and Lateral IMPRESSION: No radiographic evidence of acute cardiopulmonary disease. Electronically Signed: Nereyda Noe MD at 18:53 EST Reading Location ID and State: [id number] / Tel , Service support ,
[2024-03-12 19:14] VITALS: BP 120/60; PULSE 80; RESP 16; TEMP 36.1; O2SAT 92
== END 2024-03-12 19:16 | disposition home or self-care (01) ==
PROVIDERS: Emergency Provider Emergency Medicine; PCP Nurse Practitioner Family; Visit Provider Emergency Medicine
DX: U07.1 COVID-19 (principal); I13.2 Hypertensive heart and chronic kidney disease with heart failure and with stage 5 chronic kidney disease, or end stage renal disease; N18.6 End stage renal disease; I50.32 Chronic diastolic (congestive) heart failure; E11.22 Type 2 diabetes mellitus with diabetic chronic kidney disease; Z99.2 Dependence on renal dialysis; I25.10 Atherosclerotic heart disease of native coronary artery without angina pectoris; Z87.891 Personal history of nicotine dependence; E78.5 Hyperlipidemia, unspecified; K21.9 Gastro-esophageal reflux disease without esophagitis
CPT/HCPCS: 71046; 87631; 99283

== ENCOUNTER 2024-03-14 09:51 | Emergency (ER) | payer MEDICARE, MEDICAID, SELFPAY ==
[2024-03-14 09:53] VITALS: BP 124/61; PULSE 74; RESP 20; TEMP 37.3; O2SAT 100; BMI 43.7
[2024-03-14 09:56] VITALS: BP 124/61; PULSE 74; RESP 20; TEMP 37.3; O2SAT 100
[2024-03-14 09:58] VITALS: O2SAT 100
--- NOTE | 2024-03-14 10:48 | EDS_ITS ---
HPI History of Present Illness Chief Complaint: Cough Detail of Chief Complaint: Shortness of breath to the best of my knowledge Informant: patient and family Onset/Context/Timing Onset: Days (Onset of illness March 11.) Context: - (Unable to determine and not mentioned in ER note authored by Dr. Harper) Timing: - (Patient reports she felt better yesterday. Unable to get any other history) Quality: Shortness of breath, confusion per family member Location: Patient diagnosed with COVID-19 on March 12. Current Severity: Unable to determine Maximum Severity: Unable to determine Worsened by: Suspect this is related to COVID-19 infection Relieved by: Nothing per family member Associated Symptoms Associated Symptoms: Reported headache, congestion, cough Narrative Narrative: Patient is a 58-year-old woman. She has history of coronary disease, chronic respiratory failure requiring oxygen, ischemic cerebrovascular accident, prior closed head injury and recent diagnosis of COVID-19. On entered the room patient was crying. She was not able to tell me her age, birthdate or month. She was not able to tell me the day of the month or day of the week either. She states that her son's birthday was on Thursday and used this to rationalize the day of the month. She thought it was the . Patient presently denies headache. She denies double vision, blurred vision loss of vision. Denies ringing or ears decreased hearing. She denies neck pain. She does endorse shortness of breath and cough. Apparently the cough is nonproductive. She denies vomiting or diarrhea. She denies urologic symptoms. Family member states her cough is nonproductive. Perfan member this been no vomiting. History is limited because patient is confused. Patient is noted to have a fistula in her right arm. When asked about this she informing that she is dialyzed. And states she is dialyzed Thursday and . Per prior records a family member she is dialyzed Thursday, and Thursday. She was dialyzed on Thursday. She still makes urine per family member. Prior similar symptoms: No Recent Illness/Hospitalization: Yes (COVID-19 infection) [facility] Medical History ESRD (end stage renal disease) on dialysis Dependence on renal dialysis Easy bruising Dietary restriction History of edema Hx of cardiovascular stress test Hx of echocardiogram Cardiology follow-up encounter TIA (transient ischemic attack) Acute alteration in mental status Community acquired pneumonia ESRD (end stage renal disease) on dialysis Wears glasses Insulin dependent diabetes mellitus Low iron Former smoker Cardiology follow-up encounter Chronic heart failure with preserved ejection fraction (HFpEF) History of non-ST elevation myocardial infarction (NSTEMI) (01/20/21) Debility COVID-19 (01/20/21) Inability to walk Generalized weakness Non-STEMI (non-ST elevated myocardial infarction) (01/20/21) Ischemic cerebrovascular accident (CVA) (04/2018) Respiratory insufficiency Hypoxia Anxiety Bilateral carotid bruits Hyperlipidemia Malignant hypertension Headache Type 2 diabetes mellitus without complication Essential hypertension Atherosclerosis of coronary artery of [place] heart without angina pectoris GERD (gastroesophageal reflux disease) Depression History of renal calculi History of cholelithiasis Morbid obesity Acute renal injury due to circulatory failure Home Medications ?Medication ?Instructions ?Recorded ?Last Taken ?Type aspirin 81 mg chewable tablet 81 mg PO DAILY@0800 HEART HEALTH 07/15/18 04/26/23 History atorvastatin 80 mg tablet 80 mg PO QHS CHOLESTEROL 08/04/18 04/26/23 History torsemide 100 mg tablet 50 mg PO BID diuretic 04/14/19 04/26/23 History melatonin 5 mg tablet 5 mg PO HS PRN Sleep 08/03/20 01/19/21 History carvedilol 12.5 mg tablet 6.25 mg PO BID blood pressure 09/20/20 04/27/23 History acetaminophen 325 mg tablet 650 mg (2 x 325 mg) PO Q6H PRN PRN 10/03/20 Unknown Rx (Tylenol) Pain 1-10 Or Fever #0 tabs amlodipine 10 mg tablet 10 mg PO DAILY blood pressure 01/20/21 04/27/23 History insulin glargine U-300 conc 300 20 unit subcut BREAKFAST diabetes 03/21/21 04/26/23 History unit/mL (1.5 mL) subcutaneous pen (Tou[place]ar SoloStar U-300 Insulin) gabapentin 300 mg capsule 300 mg PO TID PRN NEUROPATHY 12/10/22 Unknown History allopurinol 100 mg tablet 100 mg PO DAILY 01/13/23 04/26/23 History cholecalciferol (vitamin D3) 50 50 mcg PO DAILY 01/13/23 04/26/23 History mcg (2,000 unit) capsule ezetimibe 10 mg tablet 10 mg PO QHS 01/13/23 04/26/23 History vitamin B complex and vitamin C 1 cap PO DAILY 01/13/23 04/26/23 History no.20-folic acid 1 mg capsule (Costilla Caps) vitamin B complex-vitamin C-folic 1 tab PO DAILY 01/13/23 04/26/23 History acid 0.8 mg tablet (Nephro-Todd) ipratropium 0.5 mg-albuterol 3 mg 3 ml inhalation Q8H COPD 11/21/23 Unknown Rx (2.5 mg base)/3 mL nebulization exacerbation/Pneumonia 14 days soln #180 mL nystatin 100,000 unit/gram topical 1 applic topical BID 14 days #1 11/21/23 Unknown Rx powder (Nyamyc) BOTTLE cefdinir 300 mg capsule 300 mg PO BID 5 days #10 caps 12/17/23 Unknown Rx dexamethasone 6 mg tablet 6 mg PO DAILY 6 days #6 tabs 12/17/23 Unknown Rx guaifenesin 1,200 mg tablet, 1,200 mg PO BID 7 days #0 tabs 12/17/23 Unknown Rx extended release 12 hr (Mucus Relief ER) hydralazine 100 mg tablet 100 mg PO TID 30 days #0 tabs 12/17/23 Unknown Rx insulin aspart U-100 100 unit/mL 13 unit (0.13 mL) subcut BID blood 12/17/23 04/26/23 Rx (3 mL) subcutaneous pen (Novolog sugar 30 days #0 mL FlexPen U-100 Insulin aspart) insulin lispro 100 unit/mL See Protocol subcut ACHS #0 mL 12/17/23 Unknown Rx subcutaneous pen (Humalog KwikPen (U-100) Insulin) ipratropium 0.5 mg-albuterol 3 mg 3 ml inhalation Q6H.RT PRN sob #0 12/17/23 Unknown Rx (2.5 mg base)/3 mL nebulization mL soln sennosides 8.6 mg-docusate sodium 2 tab PO BID PRN Constipation #0 12/17/23 Unknown Rx 50 mg tablet (Stimulant Laxative tabs Plus) Allergy/AdvReac Type Severity Reaction Status Date / Time No Known Allergies Allergy Verified 03/14/24 09:56 Family History Mother Diabetes Heart disease Hypertension Father Hypertension Heart disease Brother Heart disease Hypertension Sister Heart disease Diabetes Surgical History History of surgery History of arteriovenostomy for renal dialysis (~03/2021) History of History of appendectomy History of cholecystectomy History of coronary artery stent placement (06/2016) History of left heart catheterization (05/27/21) Social History Smoking Status: Former smoker alcohol intake: never ROS ROS ED Review of Systems ROS Unobtainable: due to mental status Respiratory/Chest Respiratory/Chest: Reports cough and dyspnea EXAM Physical Exam Const Vital Signs: 03/14/24 09:53 03/14/24 09:56 03/14/24 09:58 Temperature 99.2 F H 99.2 F H Temperature Source Oral Oral Pulse Rate 74 74 Respiratory Rate 20 H 20 H Respiratory Effort Short of Breath Blood Pressure 124/61 H 124/61 H Blood Pressure Mean 82 82 Pulse Ox 100 100 Oxygen Delivery Method Room Air Room Air Room Air 03/14/24 11:25 03/14/24 12:04 Temperature 99 F 99 F Temperature Source Oral Oral Pulse Rate 75 74 Respiratory Rate 20 H 22 H Respiratory Effort Blood Pressure 138/64 H 156/65 H Blood Pressure Mean 88 95 Pulse Ox 99 100 Oxygen Delivery Method Room Air Room Air Positive well nourished and well developed Constitutional Narrative: BMI is 43.8. Patient is crying. When asked why she is crying she could not answer. Vital signs are essentially unremarkable. She is not hypoxic. She is not tachypneic. General Appearance ED: well developed and pallor HEENT Reports dry mucous membranes HEENT Narrative: Head is atraumatic normocephalic. Ears normal. TMs normal. Nares patent. Posterior pharynx erythema or exudate. Mouth ED: Yes dry mucous membranes Mouth: dry mucous membranes Eyes PERRL and EOMs intact bilaterally General Eye ED: Yes pale conjunctiva; Negative for scleral icterus Neck no lymphadenopathy, supple and no JVD Neck Narrative: Patient has full active range of motion i.e. flexion, extension and rotation right and left with no grimacing or hesitation. Chest Wall inspection of chest normal Resp normal respiratory effort and clear to auscultation bilaterally Resp Narrative: Breath sounds are diminished and may be diminished due to the fact that her BMI is 43.8. Cardio regular rate, regular rhythm and S1 normal heart sound GI normal to inspection, nondistended, normoactive bowel sounds, non-tender, non- distended and no masses; Negative for hepatosplenomegaly Back/Spine no CVA tenderness Extremity normal to inspection Extremity Narrative: Patient has mild edema of her lower extremities. There is no discoloration, ligamentous tension, palpable cords tenderness on the distribution deep venous system. Patient has a fistula right arm. There is a palpable thrill. There is no evidence infection at the needle site. General Extremety ED: Yes edema; Negative for tenderness General Extremity: edema Neuro No oriented x3 and CN's II-XII intact bilaterally Sensorium / Orientation: alert Psych Mood & Affect: anxious and tearful Skin no rashes or lesions noted and skin turgor normal General Skin Exam: elasticity normal and pallor; Negative for jaundice MDM MDM MDM Narrative Medical decision making narrative: Review of documentation from March 12 indicates patient had no blood work. Most recent blood work is December 16. Will obtain CBC to assess white count and differential. Electrolyte panel to assess BUN and creatinine as well as electrolytes. Chest x-ray because of her complaint of cough and shortness of breath. Suspect patient has encephalopathy due to her COVID-19 infection. Family reports that she has increased confusion when she is ill. History of diabetes need to evaluate for hypoglycemia and hyperglycemia. History & Record Review Additional record(s) reviewed:: Prior inpatient record (Discharge summary authored by Dr. Calvert for November admission was reviewed. Patient was admitted at that time for pneumonia and exacerbation of COPD. She had acute hypoxia. T he concern was that she aspirated. She was seen by nephrology because she has end-stage renal disease on hemodialysis. S), Prior ED visit and Prior labs (November of this year) Lab Data Attestation: I reviewed the patient's lab results. Lab results narrative: CBC is unremarkable. Platelet count slightly low at 122,000. There is a slight shift with a normal white count. UA is slightly cloudy. Macro was positive for proteins, ketones and occult blood. Nitrites negative. Positive bilirubin however bilirubin is normal on the serum test. Patient not have pyuria. She does have bacteriuria. She has no symptoms she has by definition asymptomatic bacteriuria and recommendation is no treatment. Labs: Laboratory Results - last 24 hr 03/14/24 03/14/24 10:55 11:20 WBC 9.3 RBC 3.95 L Hgb 12.3 Hct 36.8 L MCV 93.2 MCH 31.1 MCHC 33.4 RDW Std Deviation 54.2 H RDW Coeff of [place] 15.9 H Plt Count 122 L MPV 12.1 H Immature Gran % (Auto) 0.400 Neut % (Auto) 79.1 H Lymph % (Auto) 6.9 L Saunders % (Auto) 11.2 H Eos % (Auto) 2.1 Baso % (Auto) 0.3 Absolute Neuts (auto) 7.4 Absolute Lymphs (auto) 0.64 L Nucleated RBC % 0 Sodium 133 L Potassium 4.5 Chloride 95 L Carbon Dioxide 27.0 Anion Gap 11 BUN 65 H Creatinine 7.81 H* Estim Creat Clear Calc 8.77 Est GFR (MDRD) Af Amer 7 L Est GFR (MDRD) Non-Af 6 L BUN/Creatinine Ratio 8.3 L Glucose 253 H Calcium 8.7 Total Bilirubin 0.80 AST 32 ALT 34 Alkaline Phosphatase 86 Total Protein 6.8 Albumin 3.3 Globulin 3.5 Albumin/Globulin Ratio 0.9 Urine Color Yellow Urine Clarity Sl. Cloudy Urine pH 6.0 Ur Specific [place] 1.010 Urine Protein 100 H Urine Glucose (UA) Normal Urine Ketones 5 H Urine Occult Blood 10 H Urine Nitrite Negative Urine Bilirubin 3 H Urine Urobilinogen 1 H Ur Leukocyte Esterase 25 H Urine RBC 0-5 SEEN Urine WBC 0-5 SEEN Ur Squamous Epith Cells 0-5 SEEN Urine Bacteria 1+ Urine Mucus 1+ Radiography Chest X-Ray - ED: 2 View and Read by ED Physician (Patient has mild cardiomegaly. Poor inspiratory volume. No infiltrate or effusion. No evidence of pneumothorax. Hilum is normal. Osseous structures are unremarkable.) Diagnostic Testing: Clinical Impression(s) from Imaging Studies Chest X-Ray 03/14/24 11:05 IMPRESSION: Mild cardiomegaly. Electronically Signed: David Painting MD at 11:19 EST , Rhythm Strip Rhythm Strip: Sinus Rhythm Rate: 71 Ectopy: None Treatment and Re-Evaluation :: Patient was reassessed. She is no longer crying. She is alert oriented x 3. Suspect there was an anxiety component. In light of her workup being unremarkable she was discharged to home. Discharge Plan Triage Chief Complaint: Cough ED Provider: Samm Talley Dx/Rx/DC Orders Clinical Impression: COVID-19 virus infection, Essential hypertension, History of non-ST elevation myocardial infarction (NSTEMI), History of CVA (cerebrovascular accident), Acute alteration in mental status, Chronic hypoxemic respiratory failure Instructions: Coronavirus Disease 2019 (COVID-19): Caring for Yourself or Others Prescriptions: No Action torsemide 100 mg tablet 50 mg PO BID melatonin 5 mg tablet 5 mg PO HS PRN (Reason: Sleep) gabapentin 300 mg capsule 300 mg PO TID PRN (Reason: NEUROPATHY) aspirin 81 MG tablet,chewable 81 mg PO DAILY@0800 atorvastatin 80 MG tablet 80 mg PO QHS carvedilol 12.5 mg tablet 6.25 mg PO BID acetaminophen [Tylenol] 325 mg Tablet 650 mg PO Q6H PRN PRN (Reason: Pain 1-10 Or Fever) Qty: 0 0RF amlodipine 10 MG tablet 10 mg PO DAILY insulin glargine U-300 conc [Toujeo SoloStar U-300 Insulin] 300 unit/mL (1.5 mL) insulin pen 20 unit SC BREAKFAST allopurinol 100 mg tablet 100 mg PO DAILY cholecalciferol (vitamin D3) 50 mcg (2,000 unit) capsule 50 mcg PO DAILY Costilla Caps 1 mg capsule 1 cap PO DAILY Nephro-Todd 0.8 mg tablet 1 tab PO DAILY ezetimibe 10 mg tablet 10 mg PO QHS guaifenesin [Mucus Relief ER] 1,200 mg Tablet Extended Release 12hr 1,200 mg PO BID 7 Days Qty: 0 0RF ipratropium-albuterol 0.5 mg-3 mg(2.5 mg base)/3 mL Solution For Nebulization 3 ml inhalation Q6H.RT PRN (Reason: sob) Qty: 0 0RF sennosides-docusate sodium [Stimulant Laxative Plus] 8.6-50 mg Tablet 2 tab PO BID PRN (Reason: Constipation) Qty: 0 0RF insulin lispro [Humalog KwikPen Insulin] 100 unit/mL Insulin Pen See Protocol subcut ACHS Qty: 0 0RF Protocol: 4. Sliding Scale Insulin High-Med Dosing Condition: 150-199 mg/dl = 2 units Condition: 200-259 mg/dl = 4 units Condition: 260-324 mg/dl = 6 units Condition: 325-374 mg/dl = 8 units Condition: 375-409 mg/dl = 10 units Condition: 410-449 mg/dl = 11 units Condition: Greater than 449 call physician Protocol Text: Suggested for: - Patients on Total Daily Insulin Dose of 56-80 units - Patient who are known to be insulin resistant or septic HIGH MEDIUM DOSING ALGORITHM cefdinir 300 mg capsule 300 mg PO BID 5 Days Qty: 10 0RF dexamethasone 6 mg tablet 6 mg PO DAILY 6 Days Qty: 6 0RF hydralazine 100 mg tablet 100 mg PO TID 30 Days Qty: 0 0RF Rx Instructions: Hold for SBP less than 130 mmHg insulin aspart U-100 [Novolog FlexPen U-100 Insulin] 100 unit/mL (3 mL) insulin pen 13 unit SUBCUT BID 30 Days Qty: 0 0RF Patient Comments: AT LUNCH AND DINNER. IF BS LESS THAN 80 DO NOT GIVE ipratropium-albuterol 0.5 mg-3 mg(2.5 mg base)/3 mL Solution For Nebulization 3 ml inhalation Q8H 14 Days Qty: 180 0RF nystatin [Nyamyc] 100,000 unit/gram Powder 1 applic topical BID 14 Days Qty: 1 0RF Protocol: *Topical Application Instructions APPLICATION INSTRUCTIONS: apply to groin, abdominal folds, under breasts Rx Instructions: Gently cleans skin folds w/ water/soap, pat dry, apply topical nystatin powder until complete resolution of fold redness/odor. Primary Care Provider: Page Sutton NP Referrals: Page Sutton NP, [employer] [Primary Care Provider] - 1 Week if not improving Print Language: [place] Disposition Disposition: Home, Self Care
[2024-03-14 11:04] LABS: Absolute Lymphocyte Count 0.64 X10^3/uL (0.83-4.51); Absolute Neutrophil Count 7.4 X10^3/uL (2.0-7.7); Basophil# 0.03 X10^3/uL; Basophil% 0.3 % (0-1); Eosinophils% 2.1 % (0-5); Hematocrit 36.8 % (37-47); Hemoglobin 12.3 g/dL (12.0-15.0); Lymphocyte # 0.64 X10^3/ul (0.83-4.51); Lymphocyte % 6.9 % (19-41); Mean Corp Hgb Conc 33.4 g/dL (32-36); Mean Corpuscular Hgb 31.1 pg (27.0-32.0); Mean Corpuscular Volume 93.2 fL (81-99); Mean Platelet Vol. 12.1 fl (6.2-12.0); Monocyte# 1.04 X10^3/uL; Monocyte% 11.2 % (0-10); NRBC Flagged by Analyzer 0 % (0-5); Neutrophil # 7.36 X10^3/uL (2.7-7.7); Neutrophil % 79.1 % (47-70); Platelet Count 122 K/mm3 (150-450); RBC Distribution Width CV 15.9 % (11.6-14.6); RBC Distribution Width SD 54.2 fl (35.1-43.9); Red Blood Count 3.95 M/mm3 (4.2-5.4); White Blood Count 9.3 K/mm3 (4.4-11.0)
--- NOTE | 2024-03-14 11:05 | RAD_ITS ---
STUDY: X-RAY CHEST REASON FOR EXAM: Female, 58 years old. Cough and shortness of breath TECHNIQUE: Single AP portable view of the chest. COMPARISON: Comparison is made with prior study dated March 12, 2024. FINDINGS: The lungs are clear and expanded. There is no demonstrated pleural abnormality. There is mild cardiac enlargement. Normal mediastinum and kristi. Normal visualized pulmonary arteries. There is atherosclerotic calcification of the aortic arch with tortuosity. Normal visualized thoracic spine. Normal visualized ribs, clavicles, and shoulders. There is no demonstrated abnormality of the visualized soft tissue structures of the upper abdomen. RAD/Chest PA and Lateral IMPRESSION: Mild cardiomegaly. Electronically Signed: David Painting MD at 11:19 EST ,
[2024-03-14] MEDS: Ondansetron 4 MG/2 ML Vial IV (11:16)
[2024-03-14 11:23] LABS: ALB/GLOB Ratio 0.9 RATIO (0.9-2.4); AST(SGOT) 32 U/L (15-37); Alanine Aminotransfer ALT/SGPT 34 U/L (13-56); Albumin, Serum 3.3 g/dL (3.2-5.0); Alkaline Phosphatase 86 U/L (45-117); Anion Gap 11 (5-15); BUN 65 mg/dL (7-18); BUN/Creat Ratio 8.3 RATIO (10-20); Calcium,Total 8.7 mg/dL (8.5-10.1); Chloride 95 mmol/L (98-107); Creatinine, Serum 7.81 mg/dL (0.55-1.02); EST Glomerular Filtration Rate 6 mL/min (>60); Est Glom Filt Rate - Afr Amer 7 mL/min (>60); Estimated Creatinine Clearance 8.77 ml/min; Globulin 3.5 g/dL (2.2-4.2); Glucose 253 mg/dL (74-106); Potassium 4.5 mmol/L (3.5-5.1); Protein, Total 6.8 g/dL (6.4-8.2); Sodium Level 133 mmol/L (136-145)
[2024-03-14 11:25] VITALS: BP 138/64; PULSE 75; RESP 20; TEMP 37.2; O2SAT 99
[2024-03-14 11:26] LABS: Color, Urine Yellow (Yellow); Glucose, Dipstick Normal (Normal); Ketone-Dipstick 5 mg/dl (Negative); Leukocyte Esterase-Dipstick 25 /ul (Negative); Nitrite-Dipstick Negative (Negative); Occult Blood-Urine 10 /ul (Negative); Protein-Dipstick 100 mg/dl (Negative); Urine Bilirubin Dipstick 3 mg/dL (Negative); Urine Clarity Sl. Cloudy (Clear); Urine Urobilinogen 1 mg/dl (Normal)
[2024-03-14 11:32] LABS: Red Blood Cells-Urine 0-5 SEEN /hpf (0-5); White Blood Cells 0-5 SEEN /hpf (0-5)
[2024-03-14 11:33] LABS: Bacteria 1+ /hpf (None Seen); Mucous, Urine 1+ /hpf (<or=2+); Squamous Epithelial Cells - UA 0-5 SEEN /hpf (5-10)
[2024-03-14 12:04] VITALS: BP 156/65; PULSE 74; RESP 22; TEMP 37.2; O2SAT 100
[2024-03-14 12:56] VITALS: BP 156/66; PULSE 74; RESP 24; TEMP 37.2; O2SAT 97
== END 2024-03-14 13:10 | disposition home or self-care (01) ==
PROVIDERS: Emergency Provider Emergency Medicine; PCP Nurse Practitioner Family; Visit Provider Emergency Medicine
DX: U07.1 COVID-19 (principal); I13.2 Hypertensive heart and chronic kidney disease with heart failure and with stage 5 chronic kidney disease, or end stage renal disease; N18.6 End stage renal disease; I50.32 Chronic diastolic (congestive) heart failure; J44.1 Chronic obstructive pulmonary disease with (acute) exacerbation; E11.22 Type 2 diabetes mellitus with diabetic chronic kidney disease; Z87.891 Personal history of nicotine dependence; I25.10 Atherosclerotic heart disease of native coronary artery without angina pectoris; J18.9 Pneumonia, unspecified organism; Z86.73 Personal history of transient ischemic attack (TIA), and cerebral infarction without residual deficits; E78.5 Hyperlipidemia, unspecified; R09.02 Hypoxemia; Z99.2 Dependence on renal dialysis; I25.2 Old myocardial infarction; R41.82 Altered mental status, unspecified; K21.9 Gastro-esophageal reflux disease without esophagitis
CPT/HCPCS: 71046; 80053; 81001; 85025; 96374; 99285; P9612; A4216; J2405

== ENCOUNTER 2024-07-31 15:07 | Inpatient (IN) | payer MEDICARE, MEDICAID, SELFPAY ==
[2024-07-31] VITALS (33 sets, daily range): BP systolic 105–169; BP diastolic 50–90; PULSE 67–93; RESP 11–29; TEMP 36.3–38.1; O2SAT 78–100; BMI 46.3; BMI 46.1
--- NOTE | 2024-07-31 16:01 | ED.VIS.GI ---
HPI HPI - GI History of Present Illness Chief Complaint: Nausea/Vomiting Informant: patient and family Nausea/Vomiting/Emesis GI Symptom: Positive for Nausea and Vomiting Onset: Today and Yesterday Severity: Mild Diarrhea/Melena/Hematochezia GI Symptom: Positive for Diarrhea Onset: Today and Yesterday Stool Quality: Positive for Loose Severity: Mild Associated Symptoms Associated Symptoms: Negative for Dysuria, Frequency, Hematuria or Urgency Narrative Narrative: 58-year-old female history of end-stage renal disease dialyzed Thursday had [facility] dialysis this week. She also has history of diabetes, stroke, HI and hypertension. Had URI symptoms was seen at [facility] twice on Thursday and Thursday. They told her she had a viral URI. Treated with Zofran which started having nausea vomiting on Thursday was discharged home both times. Patient states on she had a sore throat earache. And then yesterday started having nausea vomiting diarrhea. No dysuria. She makes very little urine due to her end-stage renal disease dialysis. Denies any headache or chest pain. Denies any abdominal pain. Denies any fever. Prior similar symptoms: Yes Recent Illness/Hospitalization: No PFSH PFSH Medical History ESRD (end stage renal disease) on dialysis Dependence on renal dialysis Easy bruising Dietary restriction History of edema Hx of cardiovascular stress test Hx of echocardiogram Cardiology follow-up encounter TIA (transient ischemic attack) Acute alteration in mental status Community acquired pneumonia ESRD (end stage renal disease) on dialysis Wears glasses Insulin dependent diabetes mellitus Low iron Former smoker Cardiology follow-up encounter Chronic heart failure with preserved ejection fraction (HFpEF) History of non-ST elevation myocardial infarction (NSTEMI) (01/20/21) Debility COVID-19 (01/20/21) Inability to walk Generalized weakness Non-STEMI (non-ST elevated myocardial infarction) (01/20/21) Ischemic cerebrovascular accident (CVA) (04/2018) Respiratory insufficiency Hypoxia Anxiety Bilateral carotid bruits Hyperlipidemia Malignant hypertension Headache Type 2 diabetes mellitus without complication Essential hypertension Atherosclerosis of coronary artery of [place] heart without angina pectoris GERD (gastroesophageal reflux disease) Depression History of renal calculi History of cholelithiasis Morbid obesity Acute renal injury due to circulatory failure Home Medications ?Medication ?Instructions ?Recorded ?Last Taken ?Type aspirin 81 mg chewable tablet 81 mg PO DAILY@0800 HEART HEALTH 07/15/18 04/26/23 History atorvastatin 80 mg tablet 80 mg PO QHS CHOLESTEROL 08/04/18 04/26/23 History torsemide 100 mg tablet 50 mg PO BID diuretic 04/14/19 04/26/23 History melatonin 5 mg tablet 5 mg PO HS PRN Sleep 08/03/20 01/19/21 History carvedilol 12.5 mg tablet 6.25 mg PO BID blood pressure 09/20/20 04/27/23 History acetaminophen 325 mg tablet 650 mg (2 x 325 mg) PO Q6H PRN PRN 10/03/20 Unknown Rx (Tylenol) Pain 1-10 Or Fever #0 tabs amlodipine 10 mg tablet 10 mg PO DAILY blood pressure 01/20/21 04/27/23 History insulin glargine U-300 conc 300 20 unit subcut BREAKFAST diabetes 03/21/21 04/26/23 History unit/mL (1.5 mL) subcutaneous pen (Toujeo SoloStar U-300 Insulin) gabapentin 300 mg capsule 300 mg PO TID PRN NEUROPATHY 12/10/22 Unknown History allopurinol 100 mg tablet 100 mg PO DAILY 01/13/23 04/26/23 History cholecalciferol (vitamin D3) 50 50 mcg PO DAILY 01/13/23 04/26/23 History mcg (2,000 unit) capsule ezetimibe 10 mg tablet 10 mg PO QHS 01/13/23 04/26/23 History vitamin B complex-vitamin C-folic 1 tab PO DAILY 01/13/23 04/26/23 History acid 0.8 mg tablet (Nephro-Todd) nystatin 100,000 unit/gram topical 1 applic topical BID 14 days #1 11/21/23 Unknown Rx powder (Nyamyc) BOTTLE hydralazine 100 mg tablet 100 mg PO TID 30 days #0 tabs 12/17/23 Unknown Rx insulin lispro 100 unit/mL See Protocol subcut ACHS #0 mL 12/17/23 Unknown Rx subcutaneous pen (Humalog KwikPen (U-100) Insulin) [facility] 07[facility]24 Unknown History Verio test strips) blood-glucose meter (OneTouch 07/31/24 Unknown History Verio Flex Meter) lancets 33 gauge (Fora 07/31/24 Unknown History Plus Lancet) latanoprost 0.005 % eye drops 1 drp ophthalmic (eye) QHS 07/31/24 Unknown History ondansetron 4 mg disintegrating 4 mg PO Q6H PRN PRN nausea and 07/31/24 Unknown History tablet vomiting venlafaxine besylate 112.5 mg 112.5 mg PO DAILY 07/31/24 Unknown History tablet,extended release 24 hr Allergy/AdvReac Type Severity Reaction Status Date / Time No Known Allergies Allergy Verified 07/31/24 15:08 Family History Mother Diabetes Heart disease Hypertension Father Hypertension Heart disease Brother Heart disease Hypertension Sister Heart disease Diabetes Surgical History History of surgery History of arteriovenostomy for renal dialysis (~03/2021) History of History of appendectomy History of cholecystectomy History of coronary artery stent placement (06/2016) History of left heart catheterization (05/27/21) Social History Smoking Status: Former smoker alcohol intake: never ROS ROS ED ROS Narrative Nausea vomiting diarrhea. Sore throat earache. Constitutional Constitutional ED: Denies chills or fever(s) ENT ENT ED: Reports ear pain and sore throat Cardiovascular Cardiovascular: Denies chest pain Respiratory/Chest Respiratory/Chest: Denies cough or dyspnea Gastrointestinal Gastrointestinal: Reports diarrhea, nausea and vomiting; Denies abdominal pain, constipation or melena Genitourinary Genitourinary ED: Denies dysuria or hematuria Musculoskeletal Musculoskeletal: Denies arthralgias or back pain Integumentary Denies abscess or Abrasions Neurologic Neurologic: Denies headache(s) Psychiatric Psychiatric: Denies anxiety Endocrine Endocrinology: Denies polydipsia Hematologic/Lymphatic Hematologic/Lymphatic: Denies easy bleeding or easy bruising Allergic/Immunologic Allergic/Immunologic ED: Denies mouth swelling, tongue swelling or urticaria EXAM Physical Exam Narrative Exam Narrative: 58-year-old female lying in bed. Family at bedside. She looks older than stated age. Vital signs are stable and afebrile. H EENT exam moist with membranes. Pupils round reactive light. No droop. No trauma. Neck nontender no JVD. No lymphadenopathy. Lungs clear to auscultation bilaterally. Heart regular rhythm rate about 80 no murmur. Chest wall ribs nontender. Abdomen soft nontender. Nondistended normal bowel sounds without peritoneal signs. No obstruction. Soft. Moving all 4 extremities. Nontender no edema. She has a fistula in her right upper arm good thrill. 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 Normal dorsi plantarflexion. Neurologically she is awake alert. Answering questions following commands. Back nontender. Const Vital Signs: 07/31/24 15:08 07/31/24 15:43 07/31/24 15:45 Temperature 97.3 F L Temperature Source Temporal Pulse Rate 78 79 81 Respiratory Rate 18 24 H 20 H Blood Pressure 147/58 H Blood Pressure Mean 87 Pulse Ox 78 92 95 Oxygen Delivery Method Room Air Oxygen Flow Rate (L/min) 07/31/24 15:47 07/31/24 15:50 07/31/24 15:58 Temperature Temperature Source Pulse Rate 79 79 93 Respiratory Rate 26 H 19 H 29 H Blood Pressure 158/61 H Blood Pressure Mean 87 Pulse Ox 97 95 94 Oxygen Delivery Method Oxygen Flow Rate (L/min) 07/31/24 16:00 07/31/24 16:03 07/31/24 16:15 Temperature 100.6 F H Temperature Source Axillary Pulse Rate 78 77 79 Respiratory Rate 25 H 29 H 22 H Blood Pressure 158/61 H 151/59 H Blood Pressure Mean 93 84 Pulse Ox 95 95 Oxygen Delivery Method Nasal Cannula Oxygen Flow Rate (L/min) 2 07/31/24 16:30 07/31/24 16:34 07/31/24 16:45 Temperature Temperature Source Pulse Rate 76 Respiratory Rate 25 H Blood Pressure 168/64 H 159/63 H Blood Pressure Mean 93 89 Pulse Ox 93 97 Oxygen Delivery Method Oxygen Flow Rate (L/min) 07/31/24 17:00 07/31/24 17:04 07/31/24 17:15 Temperature 99.2 F H Temperature Source Oral Pulse Rate 77 76 76 Respiratory Rate 24 H 21 H 23 H Blood Pressure 156/71 H 156/71 H 140/75 H Blood Pressure Mean 93 99 92 Pulse Ox 98 100 97 Oxygen Delivery Method Nasal Cannula Oxygen Flow Rate (L/min) 2 07/31/24 17:30 07/31/24 17:45 07/31/24 18:00 Temperature 100.3 F H Temperature Source Oral Pulse Rate 77 76 75 Respiratory Rate 25 H 17 23 H Blood Pressure 160/63 H 169/65 H 146/66 H Blood Pressure Mean 89 91 92 Pulse Ox 94 94 100 Oxygen Delivery Method Nasal Cannula Oxygen Flow Rate (L/min) 2 07/31/24 18:00 07/31/24 18:15 07/31/24 18:30 Temperature Temperature Source Pulse Rate 77 76 74 Respiratory Rate 24 H 23 H 17 Blood Pressure 105/90 H 146/66 H 149/63 H Blood Pressure Mean 96 83 87 Pulse Ox 96 Oxygen Delivery Method Oxygen Flow Rate (L/min) 07/31/24 18:43 07/31/24 18:45 07/31/24 19:00 Temperature 100.3 F H Temperature Source Pulse Rate 75 75 74 Respiratory Rate 24 H 20 H 20 H Blood Pressure 105/62 150/66 H 135/70 H Blood Pressure Mean 76 88 81 Pulse Ox 100 100 Oxygen Delivery Method Nasal Cannula Oxygen Flow Rate (L/min) 2 07/31/24 19:15 07/31/24 19:30 07/31/24 19:45 Temperature Temperature Source Pulse Rate 70 72 Respiratory Rate 22 H 24 H Blood Pressure 115/60 111/55 L 128/64 H Blood Pressure Mean 75 71 80 Pulse Ox Oxygen Delivery Method Oxygen Flow Rate (L/min) 07/31/24 20:00 07/31/24 20:15 07/31/24 20:30 Temperature Temperature Source Pulse Rate Respiratory Rate Blood Pressure 128/59 H 133/55 H 116/50 L Blood Pressure Mean 79 75 68 Pulse Ox Oxygen Delivery Method Oxygen Flow Rate (L/min) 07/31/24 20:31 Temperature 98.9 F Temperature Source Oral Pulse Rate 68 Respiratory Rate 11 L Blood Pressure Blood Pressure Mean Pulse Ox Oxygen Delivery Method Oxygen Flow Rate (L/min) Positive well nourished, well developed and obese; Negative for cachectic, contractures or unkempt General Appearance ED: well developed and NAD; Negative for unkempt, cachectic, contractures or pallor Nutritional Appearance: obese; Negative for cachectic HEENT Reports moist mucous membranes normocephalic and atraumatic Eyes PERRL and EOMs intact bilaterally General Eye ED: Negative for pale conjunctiva or scleral icterus Neck no lymphadenopathy, supple and no JVD General: Negative for tenderness Resp normal respiratory effort and clear to auscultation bilaterally Effort and Inspection: Negative for respiratory distress Auscultation: Negative for rales, rhonchi, wheezes or diminished lung sounds Cardio regular rate, regular rhythm, S1 normal heart sound, S2 normal heart sound and no murmurs Rate: Negative for bradycardia or tachycardic Rhythm: Negative for abnormal rhythm GI non-tender, non-distended and no masses Inspection: Negative for abdominal distention Auscultation: normoactive bowel sounds Palpation: soft; Negative for tender, guarding, hernia, mass, pulsatile mass or rebound tenderness present Back/Spine no CVA tenderness General Back: Negative for CVA tenderness Cervical Spine: Negative for cervical spine tenderness Thoracic Spine / Upper Back: Negative for thoracic spinal tenderness Lumbar Spine / Lower Back: Negative for lumbar spinal tenderness Extremity full ROM General Extremety ED: Negative for edema or tenderness General Extremity: Negative for edema Neuro CN's II-XII intact bilaterally and moves all extremities Sensorium / Orientation: alert, oriented to person, oriented to place and oriented to time; Negative for orientation impaired, confused, lethargic or stuporous Motor Exam: strength 5/5 throughout Psych mental status grossly normal and thought process normal Appearance: Negative for unkempt Attitude: No agitated Mood & Affect: Negative for depressed, anxious or tearful Skin no wounds General Skin Exam: Negative for jaundice or pallor Lesions: no lesions Rashes: no rashes Trauma: Negative for abrasion MDM MDM MDM Narrative Medical decision making narrative: 58-year-old female started out with an earache and sore throat on . Now is having nausea vomiting and mild diarrhea. Screening labs will be obtained. She will be treated with a limited IV fluids and Zofran see if she can hold them p.o. fluids. Clinically and because of viral syndrome. Her abdomen is benign and I do not think it needs image. It is nontender. Repeat exam patient is doing well. She will be given IV Lasix for the fact that this may be pulmonary edema. On 2 L her pulse ox is not 100%. She is resting comfortably. We went over her test results. She and family understand the plan and are comfortable with the admission. Have already spoken to the hospitalist who is down here and is already evaluated the patient. History & Record Review Discussion w/independent historian: Patient and Family Additional record(s) reviewed:: Prior inpatient record, Prior outpatient record, Prior ED visit and Prior labs Lab Data Attestation: I reviewed the patient's lab results. Lab results narrative: CBC shows a white count Nye 0.9. H&H of 10.9 and 32. Platelets 175. Electrolytes show sodium 135. Gap 15. BUN of 39 creatinine foot 5.93 has a history of end-stage renal disease dialysis. Glucose 224. Liver enzymes unremarkable. Labs are consistent with prior baseline labs. BNP is elevated 5,291. Labs: Laboratory Results - last 24 hr 07/31/24 15:55 WBC 11.9 H RBC 3.29 L Hgb 10.9 L Hct 32.9 L MCV 100.0 H MCH 33.1 H MCHC 33.1 RDW Std Deviation 57.1 H RDW Coeff of [place] 15.9 H Plt Count 175 MPV 12.6 H Immature Gran % (Auto) 0.500 Neut % (Auto) 85.8 H Lymph % (Auto) 4.9 L Kimble % (Auto) 6.5 Eos % (Auto) 2.0 Baso % (Auto) 0.3 Absolute Neuts (auto) 10.2 H Absolute Lymphs (auto) 0.58 L Nucleated RBC % 0 Sodium 135 Potassium 4.6 Chloride 96 L Carbon Dioxide 24.3 Anion Gap 15 BUN 39 H Creatinine 5.93 H Estim Creat Clear Calc 11.94 L Est GFR (MDRD) Non-Af 8 L BUN/Creatinine Ratio 6.5 L Glucose 224 H Calcium 8.6 Total Bilirubin 0.56 AST 31 ALT 21 Alkaline Phosphatase 75 NT pro BNP II 5291 H Total Protein 6.5 Albumin 3.6 Globulin 2.9 Albumin/Globulin Ratio 1.2 Radiography Chest X-Ray - ED: 2 View, Read by ED Physician, Mediastinum, Bony Structures, Chronic Changes, Cardiomegaly and CHF Diagnostic Testing: Clinical Impression(s) from Imaging Studies Chest X-Ray 07/31/24 16:25 IMPRESSION: Findings suggestive of vascular congestion. However, this may also represent viral pneumonia. Reading Location: [facility] Chest x-ray, 2 views AP and lateral, 3 films, interpreted by by myself and radiologist. Shows cardiomegaly. Bilateral opacities consistent with pulmonary edema. Cannot rule out a viral pneumonia. Discharge Plan Dx/Rx/DC Orders Clinical Impression: Nausea & vomiting, Hypoxia, Pulmonary edema, Chronic kidney disease with end stage renal disease on dialysis due to type 2 diabetes mellitus, History of diabetes mellitus Disposition Disposition: Acute Care Hospital [facility]
[2024-07-31 16:06] LABS: Absolute Lymphocyte Count 0.58 X10^3/uL (0.83-4.51); Absolute Neutrophil Count 10.2 X10^3/uL (2.0-7.7); Basophil# 0.03 X10^3/uL; Basophil% 0.3 % (0-1); Eosinophil# 0.24 X10^3/uL; Hematocrit 32.9 % (37-47); Hemoglobin 10.9 g/dL (12.0-15.0); Lymphocyte # 0.58 X10^3/ul (0.83-4.51); Lymphocyte % 4.9 % (19-41); Mean Corp Hgb Conc 33.1 g/dL (32-36); Mean Corpuscular Hgb 33.1 pg (27.0-32.0); Mean Platelet Vol. 12.6 fl (6.2-12.0); Monocyte# 0.77 X10^3/uL; Monocyte% 6.5 % (0-10); NRBC Flagged by Analyzer 0 % (0-5); Neutrophil # 10.17 X10^3/uL (2.7-7.7); Neutrophil % 85.8 % (47-70); Platelet Count 175 K/mm3 (150-450); RBC Distribution Width CV 15.9 % (11.6-14.6); RBC Distribution Width SD 57.1 fl (35.1-43.9); Red Blood Count 3.29 M/mm3 (4.2-5.4); White Blood Count 11.9 K/mm3 (4.4-11.0)
[2024-07-31 16:07] LABS: POSITIVE DIFFERENTIAL NO
[2024-07-31 16:21] LABS: ALB/GLOB Ratio 1.2 RATIO (0.9-2.4); AST(SGOT) 31 U/L (<=31); Alanine Aminotransfer ALT/SGPT 21 U/L (<=34); Albumin, Serum 3.6 g/dL (3.5-5.0); Alkaline Phosphatase 75 U/L (35-104); Anion Gap 15 (5-15); BUN 39 mg/dL (4-19); BUN/Creat Ratio 6.5 RATIO (10-20); Calcium,Total 8.6 mg/dL (7.6-11.0); Carbon Dioxide 24.3 mmol/L (21.0-32.0); Chloride 96 mmol/L (98-108); Creatinine, Serum 5.93 mg/dL (0.70-1.20); EST Glomerular Filtration Rate 8 (>60); Estimated Creatinine Clearance 11.94 ml/min (50-250); Globulin 2.9 g/dL (2.2-4.2); Glucose 224 mg/dL (70-99); Potassium 4.6 mmol/L (3.3-5.1); Protein, Total 6.5 g/dL (5.9-8.4); Sodium Level 135 mmol/L (133-145); Total Bilirubin 0.56 mg/dL (0.00-1.30)
--- NOTE | 2024-07-31 16:25 | RAD_ITS ---
PROCEDURE: CHEST PA AND LATERAL 07/31/2024 REASON FOR EXAM: COUGH TECHNIQUE: Frontal and lateral views of the chest. COMPARISON: 03/14/2024 FINDINGS: Hardware: None Heart: Heart size is moderately enlarged. Mediastinum: The mediastinal contour is unremarkable. Lungs: Mild bilateral interstitial thickening. Bibasilar atelectasis. No pneumothorax. No pleural effusion. Bones: The bones are unremarkable. RAD/Chest PA and Lateral IMPRESSION: Findings suggestive of vascular congestion. However, this may also represent v iral pneumonia. Reading [facility]
[2024-07-31] MEDS: 0.9% Normal Saline (500mL Bag) 500 ML 1000 ML IV (16:39)
[2024-07-31] MEDS: Ondansetron 4 MG/2 ML Vial IV (16:39)
[2024-07-31 18:05] LABS: Pro- Brain NATRIURETIC PEPTIDE 5291 pg/mL (<=900)
[2024-07-31] MEDS: Acetaminophen 500 MG Tablet 1000 MG PO (18:26)
--- NOTE | 2024-07-31 18:29 | ED.RN ---
Family and pt requesting to be admitted due to 106 fever . This RN stated she hasn't had a 106 fever here... Pt family member stated it was 100.6 that is a high fever!. This RN stated I am giving her tylenol for this fever now, it is probably viral. Dr Saldana at bedside and patient's family requesting to be admitted because it is viral and they do not want to catch it. Dr Saldana aware.
--- NOTE | 2024-07-31 18:44 | ED.RN ---
Pt family member states This is no better than martha trying to send her home. This RN states Dr Saldana said that he would be admitting her for you guys.
--- NOTE | 2024-07-31 20:34 | HP.PCM.HOS_ITS ---
HPI - General General Date of Admission: 07/31/24 Date of Service: 07/31/24 Chief Complaint: URI symptoms, N/V/D HPI Narrative The patient is a 58 y/o F w/ PMHx: COPD, ESRD on HD TTS, HTN, HLD, Hx CVA, Diabetes mellitus type II, Morbid obesity, CAD, HFpEF, Former tobacco use, Chronic anemia/AOCD who presents to the [facility] on 07/31/24 with history of onset URI type symptoms seen earlier in the ED at [facility] twice on Thursday and Thursday treated with Zofran secondary to persistent nausea and emesis with also sore throat, congestion, BL ear pressure sensation, minimally productive cough with worsening nausea, emesis and diarrhea prompting repeat evaluation in the ED at [facility] given worsened status. She denies any recent fevers or chills or abdominal pain associated. She makes minimal urine. Workup in the ED included T97.3, heart rate 78, BP 147/58, respiratory rate 18, initially 78% on room air with most recent repeat vitals T1 100.3, heart rate 74, BP 135/70, respiratory rate 20, height percent on 2 L nasal cannula, CBC with WBC 11.9, hemoglobin 10.9, MCV at 100, platelets 175 with left shift and lymphopenia, CMP with chloride 96, BUN/Kristen 39/5.93, GFR 8, glucose 224, NT proBNP 5291 otherwise hepatic profile not marked appearing, chest x-ray with findings suggestive of vascular congestion however certainly could also represent viral pneumonia. In ED patient ministered Tylenol 1000 mg p.o. x 1 and Zofran 4 mg IV x 1 as well as Lasix 60 mg IV x 1 in case of overload component. Last noted weight 03/14/2024 231 pounds at that time and upon current presentation 07/31/2024 244 pounds. [facility] Medical History ESRD (end stage renal disease) on dialysis Dependence on renal dialysis Easy bruising Dietary restriction History of edema Hx of cardiovascular stress test Hx of echocardiogram Cardiology follow-up encounter TIA (transient ischemic attack) Acute alteration in mental status Community acquired pneumonia ESRD (end stage renal disease) on dialysis Wears glasses Insulin dependent diabetes mellitus Low iron Former smoker Cardiology follow-up encounter Chronic heart failure with preserved ejection fraction (HFpEF) History of non-ST elevation myocardial infarction (NSTEMI) (01/20/21) Debility COVID-19 (01/20/21) Inability to walk Generalized weakness Non-STEMI (non-ST elevated myocardial infarction) (01/20/21) Ischemic cerebrovascular accident (CVA) (04/2018) Respiratory insufficiency Hypoxia Anxiety Bilateral carotid bruits Hyperlipidemia Malignant hypertension Headache Type 2 diabetes mellitus without complication Essential hypertension Atherosclerosis of coronary artery of z[place] heart without angina pectoris GERD (gastroesophageal reflux disease) Depression History of renal calculi History of cholelithiasis Morbid obesity Acute renal injury due to circulatory failure Home Medications ?Medication ?Instructions ?Recorded ?Last Taken ?Type aspirin 81 mg chewable tablet 81 mg PO DAILY@0800 [facility] 07/15/18 04/26/23 History atorvastatin 80 mg tablet 80 mg PO QHS CHOLESTEROL 11/1504/26/23 History torsemide 100 mg tablet 50 mg PO BID diuretic 04/26/23 History melatonin 5 mg tablet 5 mg PO HS PRN Sleep 1 01/19/21 History carvedilol 12.5 mg tablet 6.25 mg PO BID blood pressur e 09/20/20 04/27/23 History acetaminophen 325 mg tablet 650 mg (2 x 325 mg) PO Q6H PRN PRN 10/03/20 Unknown Rx (Tylenol) Pain 1-10 Or Fever #0 tabs amlodipine 10 mg tablet 10 mg PO DAILY blood pressur e 01/20/21 04/27/23 History insulin glargine U-300 conc [address] diabetes 03/21/21 04/26/23 History unit/mL (1.5 mL) subcutaneous pen ([employer] SoloStar U-300 Insulin) gabapentin 300 mg capsule 300 mg PO TID PRN NEUROPATHY 12/10/22 Unknown History allopurinol 100 mg tablet 100 mg PO DAILY 01/13/23 History cholecalciferol (vitamin D3) 50 50 mcg PO DAILY 04/26/23 History mcg (2,000 unit) capsule ezetimibe 10 mg tablet 10 mg PO QHS 01/13/23 History vitamin B complex-vitamin C-folic 1 tab PO DAILY 01/1304/26/23 History acid 0.8 mg tablet (Nephro-Todd) nystatin 100,000 unit/gram topical 1 applic topical BI D 14 days #1 11/21/23 Unknown Rx powder ([facility]) BOTTLE hydralazine 100 mg tablet 100 mg PO TID 30 days #0 tab s 12/17/23 Unknown Rx insulin lispro 100 unit/mL See Protocol subcut ACHS #0 mL 12/17/23 Unknown Rx subcutaneous pen (Humalog KwikPen (U-100) Insulin) blood sugar diagnostic (OneTouch 07/31/24 Unknown His tory Verio test strips) blood-glucose meter (OneTouch 07/31/24 Unknown Histor y Verio Flex Meter) lancets 33 gauge (OneTouch Delica 07/31/24 Unknown Hi story Plus Lancet) latanoprost 0.005 % eye drops 1 drp ophthalmic (eye) Q HS 07/31/24 Unknown History ondansetron 4 mg disintegrating 4 mg PO Q6H PRN PRN na usea and 07/31/24 Unknown History tablet vomiting venlafaxine besylate 112.5 mg 112.5 mg PO DAILY Unknown History tablet,extended release 24 hr Allergy/AdvReac Type Severity Reaction Status Date / Time No Known Allergies Allergy Verified 07/31/24 15:08 Family History Mother Diabetes Heart disease Hypertension Father Hypertension Heart disease Brother Heart disease Hypertension Sister Heart disease Diabetes Surgical History History of surgery History of arteriovenostomy for renal dialysis (~03/2021) History of History of appendectomy History of cholecystectomy History of coronary artery stent placement (06/2016) History of left heart catheterization (05/27/21) Social History (Updated 07/31/24 @ 21:[address] Georgina Gill MD) household members: family Smoking Status: Former smoker alcohol intake: never substance use type: does not use ROS ROS Narrative Admission Review of Systems: CONSTITUTIONAL: No weight loss, fever, chills, weakness or fatigue. HEENT: + Cough, congestion, rhinorrhea, sore throat. Eyes: No visual loss, blurred vision, double vision or yellow sclerae. Ears, Nose, Throat: No hearing loss, sneezing. SKIN: No rash or itching, lesions, wounds except + occasional stage ecchymoses, abrasion, venous stasis disease CARDIOVASCULAR: No chest pain, chest pressure or chest discomfort, palpitations, edema, orthopnea, syncopal events. RESPIRATORY: + Cough with not marked sputum production. No markedly reported shortness of breath, wheezing, hemoptysis. GASTROINTESTINAL: + anorexia, nausea, vomiting, diarrhea. No abdominal pain, melena, BRBPR. GENITOURINARY: + Minimal urine output with underlying end-stage renal disease. No dysuria, frequency, urgency or retention. NEUROLOGICAL: + History of previous CVA, chronic neuropathy. No headache, dizziness, syncope, paralysis, ataxia, focal weakness, change in bowel or bladder control, seizure. MUSCULOSKELETAL: + muscle, back pain, joint pain or stiffness. HEMATOLOGIC: + Chronic anemia, easy bleeding/bruising. LYMPHATICS: No enlarged nodes. No history of splenectomy. PSYCHIATRIC: No history of depression or anxiety. ENDOCRINOLOGIC: No reports of sweating, cold or heat intolerance. No polyuria or polydipsia. ALLERGIES: No history of asthma, hives, eczema or rhinitis. Vital Signs Vital Signs Vital Signs: 07/31/24 15:08 07/31/24 15:43 07/31/24 15:45 Temperature 97.3 F L Temperature Source Temporal Pulse Rate 78 79 81 Respiratory Rate 18 24 H 20 H Blood Pressure 147/58 H Blood Pressure Mean 87 Pulse Ox 78 92 95 Oxygen Delivery Method Room Air Oxygen Flow Rate (L/min) 07/31/24 15:47 07/31/24 15:50 07/31/24 15:58 Temperature Temperature Source Pulse Rate 79 79 93 Respiratory Rate 26 H 19 H 29 H Blood Pressure 158/61 H Blood Pressure Mean 87 Pulse Ox 97 95 94 Oxygen Delivery Method Oxygen Flow Rate (L/min) 07/31/24 16:00 07/31/24 16:03 07/31/24 16:15 Temperature 100.6 F H Temperature Source Axillary Pulse Rate 78 77 79 Respiratory Rate 25 H 29 H 22 H Blood Pressure 158/61 H 151/59 H Blood Pressure Mean 93 84 Pulse Ox 95 95 Oxygen Delivery Method Nasal Cannula Oxygen Flow Rate (L/min) 2 07/31/24 16:30 07/31/24 16:34 07/31/24 16:45 Temperature Temperature Source Pulse Rate 76 Respiratory Rate 25 H Blood Pressure 168/64 H 159/63 H Blood Pressure Mean 93 89 Pulse Ox 93 97 Oxygen Delivery Method Oxygen Flow Rate (L/min) 07/31/24 17:00 07/31/24 17:04 07/31/24 17:15 Temperature 99.2 F H Temperature Source Oral Pulse Rate 77 76 76 Respiratory Rate 24 H 21 H 23 H Blood Pressure 156/71 H 156/71 H 140/75 H Blood Pressure Mean 93 99 92 Pulse Ox 98 100 97 Oxygen Delivery Method Nasal Cannula Oxygen Flow Rate (L/min) 2 07/31/24 17:30 07/31/24 17:45 07/31/24 18:00 Temperature 100.3 F H Temperature Source Oral Pulse Rate 77 76 75 Respiratory Rate 25 H 17 23 H Blood Pressure 160/63 H 169/65 H 146/66 H Blood Pressure Mean 89 91 92 Pulse Ox 94 94 100 Oxygen Delivery Method Nasal Cannula Oxygen Flow Rate (L/min) 2 07/31/24 18:00 07/31/24 18:15 07/31/24 18:30 Temperature Temperature Source Pulse Rate 77 76 74 Respiratory Rate 24 H 23 H 17 Blood Pressure 105/90 H 146/66 H 149/63 H Blood Pressure Mean 96 83 87 Pulse Ox 96 Oxygen Delivery Method Oxygen Flow Rate (L/min) 07/31/24 18:43 07/31/24 18:45 07/31/24 19:00 Temperature 100.3 F H Temperature Source Pulse Rate 75 75 74 Respiratory Rate 24 H 20 H 20 H Blood Pressure 105/62 150/66 H 135/70 H Blood Pressure Mean 76 88 81 Pulse Ox 100 100 Oxygen Delivery Method Nasal Cannula Oxygen Flow Rate (L/min) 2 07/31/24 19:15 07/31/24 19:30 07/31/24 19:45 Temperature Temperature Source Pulse Rate 70 72 Respiratory Rate 22 H 24 H Blood Pressure 115/60 111/55 L 128/64 H Blood Pressure Mean 75 71 80 Pulse Ox Oxygen Delivery Method Oxygen Flow Rate (L/min) 07/31/24 20:00 07/31/24 20:15 07/31/24 20:30 Temperature Temperature Source Pulse Rate Respiratory Rate Blood Pressure 128/59 H 133/55 H 116/50 L Blood Pressure Mean 79 75 68 Pulse Ox Oxygen Delivery Method Oxygen Flow Rate (L/min) 07/31/24 20:31 Temperature 98.9 F Temperature Source Oral Pulse Rate 68 Respiratory Rate 11 L Blood Pressure Blood Pressure Mean Pulse Ox Oxygen Delivery Method Oxygen Flow Rate (L/min) Weight Weight: 244 lb 14.937 oz Body Mass Index (BMI) 46.3 Physical Exam Narrative Physical Examination: General: Awake, alert, oriented x 3 and cooperative, laying in the bed, fatigued, mildly ill-appearing denies any complaints but patient imminently coughing throughout evaluation. Skin: Normal color, normal turgor, no icterus, no cyanosis except occasional staged ecchymoses. HEENT: AT/NC, EOMI, PERRLA, MMM, maintained on nasal cannula. Lungs: Significantly diminished, greater bases, appropriate effort, no current appreciated rales, rhonchi or wheezing, rate and effort appropriate. Heart: Regular rate and rhythm; no gallop, rub audible. Abdomen: Soft, morbidly obese, NTTP, distant BS, difficult appreciate distention given habitus. Extremities: No cyanosis, no clubbing, bilateral lower extremity distal mild not markedly pitting. Neurological: Patient awake, alert, oriented as noted, cognitive function intact; pupils equally reactive to light and accommodation, cranial nerves grossly normal, moving all 4 extremities, no focal deficits, strength moderately to severely globally decreased. Psychiatric: Affect appears fatigued, no acute evidence of depressive or anxiety feelings. Results Lab / Micro Data 07/31/24 15:55 07/31/24 15:55 Labs: Laboratory Results - last 24 hr 07/31/24 15:55: WBC 11.9 H, RBC 3.29 L, Hgb 10.9 L, Hct 32.9 L, MCV 100.0 H, MCH 33.1 H, MCHC 33.1, RDW Std Deviation 57.1 H, RDW Coeff of [place] 15.9 H, Plt Count 175, MPV 12.6 H, Immature Gran % (Auto) 0.500, Neut % (Auto) 85.8 H, Lymph % (Auto) 4.9 L, [place] % (Auto) 6.5, Eos % (Auto) 2.0, Baso % (Auto) 0.3, Absolute Neuts (auto) 10.2 H, Absolute Lymphs (auto) 0.58 L, Nucleated RBC % 0, Sodium 135, Potassium 4.6, Chloride 96 L, Carbon Dioxide 24.3, Anion Gap 15, BUN 39 H, Creatinine 5.93 H, Estim Creat Clear Calc 11.94 L, Est GFR (MDRD) Non-Af 8 L, B UN/Creatinine Ratio 6.5 L, Glucose 224 H, Calcium 8.6, Total Bilirubin 0.56, AST 31, ALT 21, Alkaline Phosphatase 75, NT pro BNP II 5291 H, Total Protein 6.5, Albumin 3.6, Globulin 2.9, Albumin/Globulin Ratio 1.2 Micro: Microbiology 07/31/24 16:42 Mucosa - Nose SARS-CoV-2, Influenza & RSV (PCR) - Final Imaging Radiology Impression Chest X-Ray 07/31/24 16:25 IMPRESSION: Findings suggestive of vascular congestion. However, this may also represent viral pneumonia. Reading [facility] Assessment & Plan Assessment/Plan (1) Nausea & vomiting: PLAN: Plan The patient is a 58 y/o F w/ PMHx: COPD, ESRD on HD TTS, HTN, HLD, Hx CVA, Diabetes mellitus type II, Morbid obesity, CAD, HFpEF, Former tobacco use, Chronic anemia/AOCD who presents to the [facility] on 07/31/24 with history of onset URI type symptoms seen earlier in the ED at [facility] twice on Thursday and Thursday treated with Zofran secondary to persistent nausea and emesis with also sore throat, congestion, BL ear pressure sensation, minimally productive cough with worsening nausea, emesis and diarrhea prompting repeat evaluation in the ED at [facility] given worsened status. #1. Acute Hypoxia secondary to Acute Viral Syndrome, Possible BL Acute Viral Pneumonia, Possible Gastroenteritis with intractable nausea, emesis, emesis, although cannot rule out component Overload w/ HFpEF but has been HD compliant: Will admit to medical surgical floor, given the patient is a dialysis patient and some concern for possible overload on film although certainly could also be similarly present with viral illness we will hold off on aggressive hydration, if recurrent diarrhea will obtain c-diff and enteric, will not start antibiotics at this time given unclear source pending stool studies as may be viral gastroenteritis, will allow clears with IV PPI, if negative enteric and C. difficile assay then will initiate loperamide if necessary, procalcitonin requested, will obtain full respiratory viral panel concurrently, will obtain procalcitonin, will continue oxygen supplementation with wean as tolerated, will maintain on ATC DuoNeb therapy as well as as needed albuterol. Of note 07/02/2022 most recent echocardiogram with LV systolic function normal, normal LV size, EF 65%, mild concentric LVH, PASP 40 mmHg. Will continue patient home aspirin, statin, Coreg, hydralazine, torsemide home regimen. Certainly if appearance becomes more concerning for dehydration/dry may add fluid back but at this point want to assure overload is not a component especially given weight increase however it has been several months since last weight. PT/OT/case management consult for discharge planning. #2. Chronic macrocytic anemia/AOCD: Admission hemoglobin 10.9, MCV 100, baseline hemoglobin previously ranged 8-10 although most recently 03/14/2024 hemoglobin 12.3, continue to trend CBC. #3. ESRD: Patient with ongoing hemodialysis Thursday, , Thursday, nephrology Dr. Granger consulted, AV right upper extremity. #4. History CVA with associated vascular dementia: Previous CVA 2018, continue aspirin, hypertensive regimen as BP allows, statin therapy, continue diabetic regimen. #5. CAD: Status post PCI, continue patient home aspirin, statin, Coreg, not on TAYLOR/ARB. #6. Hypertension: Continue home regimen including amlodipine, Coreg, hydralazine, torsemide with hold parameters as needed, PRN hydralazine. #7. Hyperlipidemia:Continue statin, ezetimibe home therapy. #8. Diabetes mellitus type II with chronic neuropathy: Hold oral home regimen, continue home insulin regimen, clears until clinicaly improving given #1 as noted, maintain on accu checks w/ ISS, continue home gabapentin regimen. #9. Gout: We will continue patient on allopurinol regimen. #10. DVT prophylaxis: Heparin #11. CODE STATUS: Full Code. Charges/Coding Visit Charges Inpatient E&M: 29964 Init Hosp L3
[2024-07-31] MEDS: Furosemide 100 MG/10 ML Vial 60 MG IV (20:57)
[2024-07-31 21:40] LABS: Phosphorus 3.3 mg/dL (2.7-4.5)
[2024-07-31 23:29] LABS: Procalcitonin 0.47 ng/mL (<=0.10)
[2024-07-31] MEDS: Latanoprost 0.005% 1 Bottle 1 DRP OPHTHALMIC (23:45)
[2024-07-31] MEDS: Pantoprazole Sodium 40 MG in 0.9% Normal Saline (100mL MB+) 100 ML 330 MG IV (23:45)
[2024-07-31] MEDS: Ezetimibe 10 MG Tablet PO (23:47)
[2024-07-31] MEDS: Heparin Injection (Vial) 5,000 UNIT/ML VIAL 5000 UNIT SC (23:47)
[2024-07-31] MEDS: hydrALAZINE 50 MG Tablet 100 MG PO (23:47)
[2024-07-31] MEDS: Atorvastatin Calcium 80 MG Tablet PO (23:48)
[2024-07-31] MEDS: Torsemide 100 MG Tablet 50 MG PO (23:48)
[2024-07-31] MEDS: Carvedilol 6.25 MG Tablet PO (23:49)
[2024-08-01] VITALS (11 sets, daily range): BP systolic 134–146; BP diastolic 52–67; PULSE 66–86; RESP 14–18; TEMP 36.6–36.9; O2SAT 94–96
[2024-08-01 00:23] LABS: Bedside Glucose 133 mg/dL (74-106)
[2024-08-01] MEDS: guaiFENesin 10 ML UDC (200MG/10ML) 20 ML PO (02:22)
[2024-08-01] MEDS: Acetaminophen 325 MG Tablet 650 MG PO ×2 (02:22→09:47)
[2024-08-01] MEDS: hydrALAZINE 50 MG Tablet 100 MG PO ×3 (05:50→21:25)
[2024-08-01] MEDS: Ipratropium/Albuterol Sulfate 3 ML AMPUL.NEB INHALATION ×2 (06:57→12:59)
[2024-08-01 07:33] LABS: Bedside Glucose 106 mg/dL (74-106)
[2024-08-01 08:21] LABS: Absolute Lymphocyte Count 0.61 X10^3/uL (0.83-4.51); Absolute Neutrophil Count 7.1 X10^3/uL (2.0-7.7); Basophil# 0.04 X10^3/uL; Basophil% 0.5 % (0-1); Eosinophil# 0.25 X10^3/uL; Eosinophils% 2.9 % (0-5); Hematocrit 31.3 % (37-47); Hemoglobin 10.2 g/dL (12.0-15.0); Lymphocyte # 0.61 X10^3/ul (0.83-4.51); Mean Corp Hgb Conc 32.6 g/dL (32-36); Mean Corpuscular Hgb 33.2 pg (27.0-32.0); Mean Platelet Vol. 12.9 fl (6.2-12.0); Monocyte# 0.71 X10^3/uL; Monocyte% 8.2 % (0-10); NRBC Flagged by Analyzer 0 % (0-5); Neutrophil # 7.05 X10^3/uL (2.7-7.7); Neutrophil % 80.9 % (47-70); Platelet Count 144 K/mm3 (150-450); Red Blood Count 3.07 M/mm3 (4.2-5.4); White Blood Count 8.7 K/mm3 (4.4-11.0)
[2024-08-01 09:15] LABS: ALB/GLOB Ratio 1.2 RATIO (0.9-2.4); AST(SGOT) 31 U/L (<=31); Alanine Aminotransfer ALT/SGPT 21 U/L (<=34); Albumin, Serum 3.5 g/dL (3.5-5.0); Alkaline Phosphatase 67 U/L (35-104); Anion Gap 15 (5-15); BUN 46 mg/dL (4-19); BUN/Creat Ratio 6.6 RATIO (10-20); Calcium,Total 8.5 mg/dL (7.6-11.0); Carbon Dioxide 24.8 mmol/L (21.0-32.0); Chloride 98 mmol/L (98-108); Creatinine, Serum 6.96 mg/dL (0.70-1.20); EST Glomerular Filtration Rate 6 (>60); Estimated Creatinine Clearance 10.15 ml/min (50-250); Globulin 2.8 g/dL (2.2-4.2); Glucose 109 mg/dL (70-99); Potassium 4.3 mmol/L (3.3-5.1); Protein, Total 6.3 g/dL (5.9-8.4); Sodium Level 137 mmol/L (133-145); Total Bilirubin 0.67 mg/dL (0.00-1.30)
[2024-08-01] MEDS: Pantoprazole Sodium 40 MG in 0.9% Normal Saline (100mL MB+) 100 ML 330 MG IV ×2 (09:33→21:23)
[2024-08-01] MEDS: 0.9% Saline Lock 10 ML Syringe IV ×3 (09:34→21:23)
[2024-08-01] MEDS: Torsemide 100 MG Tablet 50 MG PO ×2 (09:36→16:49)
[2024-08-01] MEDS: Heparin Injection (Vial) 5,000 UNIT/ML VIAL 5000 UNIT SC ×2 (09:36→21:24)
[2024-08-01] MEDS: amLODIPine 10 MG Tablet PO (09:36)
[2024-08-01] MEDS: Carvedilol 6.25 MG Tablet PO ×2 (09:36→21:26)
[2024-08-01] MEDS: Aspirin 81 MG TAB.CHEW PO (09:36)
[2024-08-01] MEDS: Folic Acid/Vitamin B Comp W-C 1 Capsule 1 CAP PO (09:36)
[2024-08-01] MEDS: Allopurinol 100 MG Tablet PO (09:37)
[2024-08-01] MEDS: Nystatin Powder 15gm Bottle 1 APPLIC TOPICAL ×2 (09:37→21:20)
[2024-08-01] MEDS: Insulin Glargine-YFGN 100 UNIT/ML Pen 20 UNIT SC (09:37)
[2024-08-01] MEDS: Venlafaxine XR 37.5 MG Capsule 112.5 MG PO (09:37)
--- NOTE | 2024-08-01 10:11 | CASEMGMT ---
Discharge Planning Pt has HC POA but not LW. HC POA on file. SW asked to follow up with pt re: LW. Rima Camacho DC Planning Asst.
--- NOTE | 2024-08-01 10:44 | PN_ITS ---
Subjective Subjective Patient seen and examined. Still complains of feeling short of breath and wheezing a bit. She is on 4 L of oxygen. She denies any chest pain, palpitations, dizziness, nausea vomiting or any other symptoms. Review of systems otherwise negative. Objective Data Objective Data Vital Signs: Vital Signs Temp Pulse Resp BP Pulse Ox O2 Del Method O2 Flow Rate 98.1 F 67 16 146/67 H 96 Nasal Cannula 4 08/01/24 09:29 08/01/24 09:29 08/01/24 09:29 08/01/24 09:29 08/01/24 09:29 08/01/24 09:53 08/01/24 09:53 Oxygen Flow Rate (L/min) 4 Oxygen Delivery Method Nasal Cannula Weight: 244 lb 4.355 oz Body Mass Index (BMI) 46.1 Intake & Output: Intake and Output for Last 24 Hours 07/30/24 07/31/24 08/01/24 23:59 23:59 23:59 Intake Total 500 / 900 510 / 510 Balance 500 / 900 510 / 510 Lab / Micro Data 08/01/24 07:25 08/01/24 07:25 Labs: Laboratory Results - last 24 hr 07/31/24 15:55: WBC 11.9 H, RBC 3.29 L, Hgb 10.9 L, Hct 32.9 L, MCV 100.0 H, MCH 33.1 H, MCHC 33.1, RDW Std Deviation 57.1 H, RDW Coeff of [place] 15.9 H, Plt Count 175, MPV 12.6 H, Immature Gran % (Auto) 0.500, Neut % (Auto) 85.8 H, Lymph % (Auto) 4.9 L, [place] % (Auto) 6.5, Eos % (Auto) 2.0, Baso % (Auto) 0.3, Absolute Neuts (auto) 10.2 H, Absolute Lymphs (auto) 0.58 L, Nucleated RBC % 0, Sodium 135, Potassium 4.6, Chloride 96 L, Carbon Dioxide 24.3, Anion Gap 15, BUN 39 H, Creatinine 5.93 H, Estim Creat Clear Calc 11.94 L, Est GFR (MDRD) Non-Af 8 L, B UN/Creatinine Ratio 6.5 L, Glucose 224 H, Calcium 8.6, Phosphorus 3.3, Magnesium 2.0, Total Bilirubin 0.56, AST 31, ALT 21, Alkaline Phosphatase 75, NT pro BNP II 5291 H, Total Protein 6.5, Albumin 3.6, Globulin 2.9, Albumin/Globulin Ratio 1.2, Procalcitonin 0.47 H 07/31/24 23:42: POC Glucose 133 H 08/01/24 07:08: POC Glucose 106 08/01/24 07:25: WBC 8.7, RBC 3.07 L, Hgb 10.2 L, Hct 31.3 L, MCV 102.0 H, MCH 33.2 H, MCHC 32.6, RDW Std Deviation 59.0 H, RDW Coeff of [place] 16.0 H, Plt Count 144 L, MPV 12.9 H, Immature Gran % (Auto) 0.500, Neut % (Auto) 80.9 H, Lymph % (Auto) 7.0 L, [place] % (Auto) 8.2, Eos % (Auto) 2.9, Baso % (Auto) 0.5, Absolute Neuts (auto) 7.1, Absolute Lymphs (auto) 0.61 L, Nucleated RBC % 0, Sodium 137, Potassium 4.3, Chloride 98, Carbon Dioxide 24.8, Anion Gap 15, BUN 46 H, C reatinine 6.96 H, Estim Creat Clear Calc 10.15 L, Est GFR (MDRD) Non-Af 6 L, B UN/Creatinine Ratio 6.6 L, Glucose 109 H, Calcium 8.5, Total Bilirubin 0.67, AST 31, ALT 21, Alkaline Phosphatase 67, Total Protein 6.3, Albumin 3.5, Globulin 2.8, Albumin/Globulin Ratio 1.2 Micro: Microbiology 08/01/24 07:17 Stool Clostridioides difficile (PCR) - Final 07/31/24 23:55 Interface Orders Respiratory Panel (PCR) - Final Human Rheems 07/31/24 16:42 Mucosa - Nose SARS-CoV-2, Influenza & RSV (PCR) - Final Radiography Diagnostic Testing: Radiology Impression Chest X-Ray 07/31/24 16:25 IMPRESSION: Findings suggestive of vascular congestion. However, this may also represent viral pneumonia. Reading [facility] Physical Exam Const alert, oriented x3 and no apparent distress Constitutional Narrative: class III obesity General Appearance: cooperative HEENT normocephalic, head/scalp atraumatic, moist oral mucous membranes, oropharynx normal and gingiva normal Eyes PERRL and EOMs intact bilaterally Neck no lymphadenopathy and supple Lymph Lymphatic: no lymphadenopathy noted and no lymphedema noted Resp Resp Narrative: mildly diminished breath sounds bibasally, mild wheezing, no crackles. On 4L of oxygen by nasal canula Cardio regular rate, regular rhythm, S1 normal heart sound, S2 normal heart sound and no murmurs GI normal to inspection, nondistended, normoactive bowel sounds, soft to palpation, non-tender and non-distended Extremity normal capillary refill, no clubbing, cyanosis or edema and no calf tenderness General Extremity: no tenderness to palpation of joints or extremities Skin General Skin Exam: no breakdown Neuro CN's II-XII intact bilaterally, no focal motor deficits and no sensory deficits noted Motor Exam: strength 5/5 throughout and general weakness Psych thought process normal, cooperative and affect normal Appearance: appropriate Assessment & Plan Assessment/Plan (1) Hypoxia: PLAN: Plan #Hypoxia due to acute uRTI and ossible viral pneumonia * On her baseline 4 L of oxygen. However she still has bilateral crackles and mild wheezing. * Breathing treatments with bronchodilators. Titrate oxygen to maintain saturation above 90%. * proBNP was also elevated at 5291 so patient also likely fluid overloaded. Makes very little urine so Lasix would not be of much help. Dialysis should help tomorrow. Currently on torsemide. #ESRD: On hemodialysis Tuesdays and Saturdays. Has AV fistula in her right upper extremity. Nephrology on board. #History of CVA with vascular dementia: On aspirin and statin #Type 2 diabetes mellitus: On Lantus. Insulin sliding scale. Accu-Cheks ACHS. #CAD s/p PCI on aspirin and statin as well as Coreg #Hypertension: On amlodipine, Coreg and hydralazine as well as torsemide. IV hydralazine as needed #Thrombocytopenia: Platelets are 144 today. Was 175 yesterday. She does have a history of chronic thrombocytopenia. I will monitor. #Hyperlipidemia: On statin and ezetimibe #Type 2 diabetes mellitus with neuropathy: On insulin. Insulin sliding scale. Accu-Cheks ACHS. On gabapentin #Gout: Allopurinol #DVT prophylaxis: Heparin Charges/Coding Visit Charges Inpatient E&M: 94491 Subs Hosp L2
[2024-08-01 12:00] LABS: Bedside Glucose 159 mg/dL (74-106)
--- NOTE | 2024-08-01 12:02 | PCM.CONS.R ---
Assessment & Plan Assessment/Plan (1) ESRD (end stage renal disease): (2) Anemia of chronic disease: PLAN: Plan ESRD on hemodialysis Thursday, per patient she last dialyzed Thursday. No acute indication for SENIOR SOFTWARE TESTER today, will plan for dialysis tomorrow. Orders placed. Patient has history of anemia of chronic disease, hgb 10.2. No need for KIM with dialysis at this time. Will monitor hemoglobin trends. Further orders forthcoming as hospitalization evolves. Thank you for allowing us to participate in the care of Ms. Davis. Assessment and plan reviewed with Dr. Granger. HPI Consult Data Date of Consult: 08/01/24 HPI Narrative HPI Narrative: ZAYDA DAVIS, is a 58 F who presented to the emergency room with complaints of upper respiratory infection symptoms, admitted for acute hypoxia secondary to acute viral syndrome and possible pneumonia. Influenza A/B and COVID-negative. Patient has history of ESRD and is on hemodialysis Thursday, last dialyzed Thursday. Nephrology consulted in view of history of ESRD and for dialysis management. Patient denies any complaints today. States last dialysis was uneventful for her. [facility] Medical History ESRD (end stage renal disease) on dialysis Dependence on renal dialysis Easy bruising Dietary restriction History of edema Hx of cardiovascular stress test Hx of echocardiogram Cardiology follow-up encounter TIA (transient ischemic attack) Acute alteration in mental status Community acquired pneumonia ESRD (end stage renal disease) on dialysis Wears glasses Insulin dependent diabetes mellitus Low iron Former smoker Cardiology follow-up encounter Chronic heart failure with preserved ejection fraction (HFpEF) History of non-ST elevation myocardial infarction (NSTEMI) (01/20/21) Debility COVID-19 (01/20/21) Inability to walk Generalized weakness Non-STEMI (non-ST elevated myocardial infarction) (01/20/21) Ischemic cerebrovascular accident (CVA) (04/2018) Respiratory insufficiency Hypoxia Anxiety Bilateral carotid bruits Hyperlipidemia Malignant hypertension Headache Type 2 diabetes mellitus without complication Essential hypertension Atherosclerosis of coronary artery of [place] heart without angina pectoris GERD (gastroesophageal reflux disease) Depression History of renal calculi History of cholelithiasis Morbid obesity Acute renal injury due to circulatory failure Home Medications ?Medication ?Instructions ?Recorded ?Last Taken ?Type aspirin 81 mg chewable tablet 81 mg PO DAILY@0800 [facility] 07/15/18 04/26/23 History atorvastatin 80 mg tablet 80 mg PO QHS CHOLESTEROL 08/04/18 04/26/23 History torsemide 100 mg tablet 50 mg PO BID diuretic 04/14/19 04/26/23 History melatonin 5 mg tablet 5 mg PO HS PRN Sleep 08/03/20 01/19/21 History carvedilol 12.5 mg tablet 6.25 mg PO BID blood pressure 09/20/20 04/27/23 History acetaminophen 325 mg tablet 650 mg (2 x 325 mg) PO Q6H PRN PRN 10/03/20 Unknown Rx (Tylenol) Pain 1-10 Or Fever #0 tabs amlodipine 10 mg tablet 10 mg PO DAILY blood pressure 01/20/21 04/27/23 History insulin glargine U-300 conc 300 20 unit subcut BREAKFAST diabetes 03/21/21 04/26/23 History unit/mL (1.5 mL) subcutaneous pen (Toujeo SoloStar U-300 Insulin) gabapentin 300 mg capsule 300 mg PO TID PRN NEUROPATHY 12/10/22 Unknown History allopurinol 100 mg tablet 100 mg PO DAILY 01/13/23 04/26/23 History cholecalciferol (vitamin D3) 50 50 mcg PO DAILY 01/13/23 04/26/23 History mcg (2,000 unit) capsule ezetimibe 10 mg tablet 10 mg PO QHS 01/13/23 04/26/23 History vitamin B complex-vitamin C-folic 1 tab PO DAILY 01/13/23 04/26/23 History acid 0.8 mg tablet (Nephro-Todd) nystatin 100,000 unit/gram topical 1 applic topical BID 14 days #1 11/21/23 Unknown Rx powder ([facility]) BOTTLE hydralazine 100 mg tablet 100 mg PO TID 30 days #0 tabs 12/17/23 Unknown Rx insulin lispro 100 unit/mL See Protocol subcut ACHS #0 mL 12/17/23 Unknown Rx subcutaneous pen (Humalog KwikPen (U-100) Insulin) [facility] Unknown History Verio test strips) blood-glucose meter (OneTouch 07/31/24 Unknown History Verio Flex Meter) lancets 33 gauge (OneTouch Delica 07/31/24 Unknown History Plus Lancet) latanoprost 0.005 % eye drops 1 drp ophthalmic (eye) QHS 07/31/24 Unknown History ondansetron 4 mg disintegrating 4 mg PO Q6H PRN PRN nausea and 07/31/24 Unknown History tablet vomiting venlafaxine besylate 112.5 mg 112.5 mg PO DAILY 07/31/24 Unknown History tablet,extended release 24 hr Allergy/AdvReac Type Severity Reaction Status Date / Time No Known Allergies Allergy Verified 07/31/24 15:08 Family History Mother Diabetes Heart disease Hypertension Father Hypertension Heart disease Brother Heart disease Hypertension Sister Heart disease Diabetes Surgical History History of surgery History of arteriovenostomy for renal dialysis (~03/2021) History of History of appendectomy History of cholecystectomy History of coronary artery stent placement (06/2016) History of left heart catheterization (05/27/21) Social History (Updated 07/31/24 @ 21:[address] Georgina Gill MD) household members: family Smoking Status: Former smoker alcohol intake: never substance use type: does not use ROS ROS Narrative As in HPI Physical Exam Narrative Alert and oriented x 3, no apparent distress S1, S2, RRR Diminished breath sounds, no rales or rhonchi. On O2 nasal cannula Abdomen soft, nontender No edema AV fistula right upper arm positive thrill and bruit Lab / Micro Data 08/01/24 07:25 08/01/24 07:25 Labs: Laboratory Results - last 24 hr 07/31/24 15:55: WBC 11.9 H, RBC 3.29 L, Hgb 10.9 L, Hct 32.9 L, MCV 100.0 H, MCH 33.1 H, MCHC 33.1, RDW Std Deviation 57.1 H, RDW Coeff of [place] 15.9 H, Plt Count 175, MPV 12.6 H, Immature Gran % (Auto) 0.500, Neut % (Auto) 85.8 H, Lymph % (Auto) 4.9 L, [place] % (Auto) 6.5, Eos % (Auto) 2.0, Baso % (Auto) 0.3, Absolute Neuts (auto) 10.2 H, Absolute Lymphs (auto) 0.58 L, Nucleated RBC % 0, Sodium 135, Potassium 4.6, Chloride 96 L, Carbon Dioxide 24.3, Anion Gap 15, BUN 39 H, Creatinine 5.93 H, Estim Creat Clear Calc 11.94 L, Est GFR (MDRD) Non-Af 8 L, BUN/Creatinine Ratio 6.5 L, Glucose 224 H, Calcium 8.6, Phosphorus 3.3, Magnesium 2.0, Total Bilirubin 0.56, AST 31, ALT 21, Alkaline Phosphatase 75, NT pro BNP II 5291 H, Total Protein 6.5, Albumin 3.6, Globulin 2.9, Albumin/Globulin Ratio 1.2, Procalcitonin 0.47 H 07/31/24 23:42: POC Glucose 133 H 08/01/24 07:08: POC Glucose 106 08/01/24 07:25: WBC 8.7, RBC 3.07 L, Hgb 10.2 L, Hct 31.3 L, MCV 102.0 H, MCH 33.2 H, MCHC 32.6, RDW Std Deviation 59.0 H, RDW Coeff of [place] 16.0 H, Plt Count 144 L, MPV 12.9 H, Immature Gran % (Auto) 0.500, Neut % (Auto) 80.9 H, Lymph % (Auto) 7.0 L, [place] % (Auto) 8.2, Eos % (Auto) 2.9, Baso % (Auto) 0.5, Absolute Neuts (auto) 7.1, Absolute Lymphs (auto) 0.61 L, Nucleated RBC % 0, Sodium 137, Potassium 4.3, Chloride 98, Carbon Dioxide 24.8, Anion Gap 15, BUN 46 H, Creatinine 6.96 H, Estim Creat Clear Calc 10.15 L, Est GFR (MDRD) Non-Af 6 L, BUN/Creatinine Ratio 6.6 L, Glucose 109 H, Calcium 8.5, Total Bilirubin 0.67, AST 31, ALT 21, Alkaline Phosphatase 67, Total Protein 6.3, Albumin 3.5, Globulin 2.8, Albumin/Globulin Ratio 1.2 08/01/24 11:41: POC Glucose 159 H Micro: Microbiology 08/01/24 00:05 Sputum, Expectorated/Coughed Gram Stain - Final 08/01/24 07:17 Stool Enteric Bacteriology - Final 08/01/24 07:17 Stool Clostridioides difficile (PCR) - Final 07/31/24 23:55 Interface Orders Respiratory Panel (PCR) - Final Human [place] 07/31/24 16:42 Mucosa - Nose SARS-CoV-2, Influenza & RSV (PCR) - Final Imaging Radiology Impression Chest X-Ray 07/31/24 16:25 IMPRESSION: Findings suggestive of vascular congestion. However, this may also represent viral pneumonia. Reading Location: [facility]
--- NOTE | 2024-08-01 12:05 | CASEMGMT ---
SAPNA WINN Assessment Face to Face with patient for initial transition planning/care coordination assessment. SAPNA WINN introduced self and role at [facility], pt voices understanding. Pt is A&Ox4 and is resting comfortably in bed and is calm. Care providers, pharmacy, and demographics verified. Admitting dx: acute Hypoxia, Acute Viral Syndrome LACE Strata: 3 PCP: [facility] Specialists: pt states that she sees a timber buyer and beverage inspection machine tender but is unsure of the names or location Preferred Pharmacy: [place] Insurance: [facility], [place]/ [facility]. Pt states that she has a CM through the insurance but is unsure of the name or contact information. Care Management to follow. Prescription Benefit: Yes LNOK: Stephy Roberts (sister), Madi Jain (Daughter) Living Arrangements: Pt lives with her sister and sister's SO in a mobile home with a ramp to enter ADLs/IADLs: Pt states that she is able to get up & ambulate independently but that her sister is her primary caregiver. Pt states that she showers herself but her sister watches her to be safe. Pt reports that her sister manages her medications. Pt goes to [facility] M[facility]. Transportation:Sister, Bisi. Denies concerns DME: Home oxygen through [employer]. Verified by Paul that the pt's current order states 2L continuous. Pt reports that she has a BGM with sufficient supplies as well as a rollator, FWW, shower chair, and grab bars. HHC/SNF: Hx @ [facility] in [place]. Pt denies skilled HH hx HD: Pt states that she goes to [facility] @ 0530 and that [employer] provides this transportation. Pt states that she does not know which branch she attends and states, All I know is that it is 20 minutes from my house. Per chart review, the facility is in [place]. Pt?s goal: Home Plan: Home with family support through the pt's sister, continue OP HD, continue support through [employer], follow for updated oxygen needs. Pt denies the need for HHC or OP tx. 6-Click score is 21 and PT/OT evals are pending. Pt states that she feels safe with this plan and denies further questions, concerns, or needs. Report given to KWADWO ALEJO CM. Riya Dowell RN, CM
[2024-08-01] MEDS: Insulin Lispro 100 UNIT/ML INSULN.PEN SC (12:09)
--- NOTE | 2024-08-01 15:12 | CASEMGMT ---
Social Work- SW spoke with Casie Arevalo, [facility] , to coordinate care. Casie reports that pt attends [facility] day [facility] 5 days and also receives MOW. Casie fax number for discharge is [phone]. Casie telephone: [phone]. RAN remains available to follow. GERALD Palumbo
--- NOTE | 2024-08-01 15:25 | CASEMGMT ---
SAPNA WINN into pt room, pt lying in bed in no distress. Pt is unaware of where she receives dialysis. Pt states, call my sister that I live with. She will tell you everything you need to know. Pt rolled over in bed and was finished with the conversation. TC to pt sister, June, she states pt goes to [facility] in [place] on . She states she is picked up by [facility] at 5am. She also states pt has a concentrator through [employer] for oxygen but pt does not wear it. She does not have portable tanks. Noted that her rx for O2 is 2L cont. June states that Dr. Mc is pt brim stiffener. Noted no therapy was recommended this date. SAPNA WINN to continue to follow.
[2024-08-01 17:10] LABS: Bedside Glucose 149 mg/dL (74-106)
[2024-08-01] MEDS: Latanoprost 0.005% 1 Bottle 1 DRP OPHTHALMIC (21:21)
[2024-08-01] MEDS: Ezetimibe 10 MG Tablet PO (21:24)
[2024-08-01] MEDS: Atorvastatin Calcium 80 MG Tablet PO (21:26)
[2024-08-02] VITALS (22 sets, daily range): BP systolic 52–250; BP diastolic 44–67; PULSE 60–80; RESP 14–22; TEMP 36.5–36.6; O2SAT 86–98; BMI 46.2; BMI 44.9
[2024-08-02 00:32] LABS: Bedside Glucose 133 mg/dL (74-106)
[2024-08-02] MEDS: Acetaminophen 325 MG Tablet 650 MG PO (02:21)
[2024-08-02] MEDS: hydrALAZINE 50 MG Tablet 100 MG PO (05:26)
[2024-08-02 05:51] LABS: Bedside Glucose 129 mg/dL (74-106)
[2024-08-02] MEDS: Ipratropium/Albuterol Sulfate 3 ML AMPUL.NEB INHALATION (07:06)
[2024-08-02] MEDS: Lidocaine/Prilocaine HCl 5 GM Tube TOPICAL (08:00)
[2024-08-02] MEDS: 0.9% Normal Saline 1,000 ML IV.SOLN. 1000 ML OPERA.SITE (08:45)
[2024-08-02] MEDS: PureFlow B 3K Dialysis Soln 1 BAG 6 BAG PF (08:46)
[2024-08-02 09:08] LABS: Absolute Lymphocyte Count 0.73 X10^3/uL (0.83-4.51); Absolute Neutrophil Count 5.3 X10^3/uL (2.0-7.7); Basophil# 0.02 X10^3/uL; Basophil% 0.3 % (0-1); Eosinophil# 0.22 X10^3/uL; Eosinophils% 3.2 % (0-5); Hemoglobin 9.1 g/dL (12.0-15.0); Lymphocyte # 0.73 X10^3/ul (0.83-4.51); Lymphocyte % 10.5 % (19-41); Mean Corp Hgb Conc 33.7 g/dL (32-36); Mean Corpuscular Hgb 32.9 pg (27.0-32.0); Mean Corpuscular Volume 97.5 fL (81-99); Mean Platelet Vol. 12.1 fl (6.2-12.0); Monocyte% 8.6 % (0-10); NRBC Flagged by Analyzer 0 % (0-5); Neutrophil # 5.34 X10^3/uL (2.7-7.7); Neutrophil % 76.7 % (47-70); Platelet Count 133 K/mm3 (150-450); RBC Distribution Width CV 15.7 % (11.6-14.6); RBC Distribution Width SD 55.5 fl (35.1-43.9); Red Blood Count 2.77 M/mm3 (4.2-5.4)
[2024-08-02 12:10] LABS: Bedside Glucose 94 mg/dL (74-106)
--- NOTE | 2024-08-02 12:49 | PN.RENAL_ITS ---
Subjective Subjective no new events Objective Data Objective Data Vital Signs: Vital Signs Temp Pulse Resp BP Pulse Ox O2 Del Method O2 Flow Rate 97.8 F 62 20 H 120/60 94 Nasal Cannula 1 08/02/24 08:54 08/02/24 12:30 08/02/24 12:30 08/02/24 12:30 08/02/24 12:30 08/02/24 12:30 08/02/24 12:30 Oxygen Flow Rate (L/min) 1 Oxygen Delivery Method Nasal Cannula Weight: 110.9 kg Body Mass Index (BMI) 46.2 Intake & Output: Intake and Output for Last 24 Hours 07/31/24 08/01/24 08/02/24 23:59 23:59 23:59 Intake Total 500 / 900 730 / 730 Balance 500 / 900 730 / 730 Lab / Micro Data 08/02/24 08:55 08/01/24 07:25 Labs: Laboratory Results - last 24 hr 08/01/24 16:48: POC Glucose 149 H 08/02/24 00:04: POC Glucose 133 H 08/02/24 05:25: POC Glucose 129 H 08/02/24 08:55: WBC 7.0, RBC 2.77 L, Hgb 9.1 L, Hct 27.0 L, MCV 97.5, MCH 32.9 H , MCHC 33.7, RDW Std Deviation 55.5 H, RDW Coeff of Chichi 15.7 H, Plt Count 133 L, MPV 12.1 H, Immature Gran % (Auto) 0.700, Neut % (Auto) 76.7 H, Lymph % (Auto) 10.5 L, [place] % (Auto) 8.6, Eos % (Auto) 3.2, Baso % (Auto) 0.3, Absolute Neuts (auto) 5.3, Absolute Lymphs (auto) 0.73 L, Nucleated RBC % 0 08/02/24 11:52: POC Glucose 94 Micro: Microbiology 08/01/24 00:05 Sputum, Expectorated/Coughed Gram Stain - Final 08/01/24 07:17 Stool Enteric Bacteriology - Final 08/01/24 07:17 Stool Clostridioides difficile (PCR) - Final 07/31/24 23:55 Interface Orders Respiratory Panel (PCR) - Final Human [place] 07/31/24 16:42 Mucosa - Nose SARS-CoV-2, Influenza & RSV (PCR) - Final Physical Exam Narrative Alert and oriented x 3, no apparent distress S1, S2, RRR Diminished breath sounds, no rales or rhonchi. On O2 nasal cannula Abdomen soft, nontender No edema AV fistula right upper arm positive thrill and bruit Assessment & Plan Assessment/Plan (1) ESRD (end stage renal disease): (2) Anemia of chronic disease: PLAN: Plan ESRD on hemodialysis Thursday, HD today
[2024-08-02] MEDS: Insulin Glargine-YFGN 100 UNIT/ML Pen 10 UNIT SC (13:05)
[2024-08-02] MEDS: amLODIPine 10 MG Tablet PO (13:06)
[2024-08-02] MEDS: Folic Acid/Vitamin B Comp W-C 1 Capsule 1 CAP PO (13:06)
[2024-08-02] MEDS: Allopurinol 100 MG Tablet PO (13:06)
[2024-08-02] MEDS: Aspirin 81 MG TAB.CHEW PO (13:06)
[2024-08-02] MEDS: Venlafaxine XR 37.5 MG Capsule 112.5 MG PO (13:06)
[2024-08-02] MEDS: Heparin Injection (Vial) 5,000 UNIT/ML VIAL 5000 UNIT SC (13:07)
[2024-08-02] MEDS: Carvedilol 6.25 MG Tablet PO (13:07)
[2024-08-02] MEDS: Torsemide 100 MG Tablet 50 MG PO (13:07)
[2024-08-02] MEDS: Nystatin Powder 15gm Bottle 1 APPLIC TOPICAL (13:07)
[2024-08-02] MEDS: Pantoprazole Sodium 40 MG in 0.9% Normal Saline (100mL MB+) 100 ML 330 MG IV (13:16)
--- NOTE | 2024-08-02 14:42 | CASEMGMT ---
Addendum entered by Marine Matos 08/02/24 16:00: SAPNA WINN into pt room, pt is aware that she has a dc order in. Reviewed with her oxygen orders per hospitalist. She is aware the portable tank brought to her room is for her to take home. Asked if she would like this SAPNA WINN to call June her sister who will be transporting her home, she immediately calls her sister with no answer. She left her a vm. SAPNA WINN called June, received vm, left information that pt is ready for dc and oxygen instruction. Requested she call SAPNA WINN back or if after 4pm to call the nurses station, left this phone number as well. Pt continued to try and reach pt without success. Pt became very upset with sister at this time. Pt sister called in to medical secretary teacher and she will be on her way to pick pt up per medical secretary teacher. Addendum entered by Marine Matos 08/02/24 15:38: TC to Inna López, left message on human resources administrator Natalia Peters's line that pt will be dc'ing from [facility] today and has dialysis. She will be at their facility on for dialysis. Provided returned call back info. Addendum entered by Marine Matos 08/02/24 15:19: SAPNA WINN into pt room, took portable oxygen tank in room. Pt is in the bathroom on the phone, SAPNA WINN to come back. Addendum entered by Marine Matos 08/02/24 15:14: TC to Toyah to make aware pt is dc'ing this date and will need transportation to dialysis on , left with this information and requested returned call. TC to Ej Rob to make aware that pt is dc'ing today. Phone rang and rang to nurses station, unable to leave a vm. Original Note: Pt does not qualify for increased [facility] rx. [facility] may take a portable tank upon dc from floor stock.
--- NOTE | 2024-08-02 15:05 | PCM.DC.SUM ---
Providers Date of Admission: 07/31/24 Date of Discharge: 08/02/24 Primary Care Physician: TERESA Mas Consultations 07/31/24 21:54 Consult: Nephrology Routine Consulting Provider: Ketty Granger Reason for Consult: ESRD on HD EMERGENT Consult: No MD Notified: Yes Date Notified: 07/31/24 Time Notified: 21:05 Method of Notification: Answering Service Reason For Visit: ACUTE HYPOXIA, ACUTE VIRAL SYNDROME Diagnosis Discharge Diagnosis (1) ESRD (end stage renal disease): Status: Acute Code(s): N18.6 - End stage renal disease (2) Anemia of chronic disease: Status: Chronic Code(s): D63.8 - Anemia in other chronic diseases classified elsewhere Medications at Discharge Home Medications aspirin 81 mg chewable tablet 81 mg PO DAILY@0800 HEART HEALTH 07/15/18 atorvastatin 80 mg tablet 80 mg PO QHS CHOLESTEROL 08/04/18 torsemide 100 mg tablet 50 mg PO BID diuretic 04/14/19 melatonin 5 mg tablet 5 mg PO HS PRN Sleep 08/03/20 carvedilol 12.5 mg tablet 6.25 mg PO BID blood pressure 09/20/20 acetaminophen 325 mg tablet (Tylenol) 650 mg (2 x 325 mg) PO Q6H PRN PRN Pain 1-10 Or Fever #0 tabs 10/03/20 amlodipine 10 mg tablet 10 mg PO DAILY blood pressure 01/20/21 insulin glargine U-300 conc 300 unit/mL (1.5 mL) subcutaneous pen (Toujeo SoloStar U-300 Insulin) 20 unit subcut BREAKFAST diabetes 03/21/21 gabapentin 300 mg capsule 300 mg PO TID PRN NEUROPATHY 12/10/22 allopurinol 100 mg tablet 100 mg PO DAILY 01/13/23 cholecalciferol (vitamin D3) 50 mcg (2,000 unit) capsule 50 mcg PO DAILY 01/13/23 ezetimibe 10 mg tablet 10 mg PO QHS 01/13/23 vitamin B complex-vitamin C-folic acid 0.8 mg tablet (Nephro-Todd) 1 tab PO DAILY 01/13/23 nystatin 100,000 unit/gram topical powder (Nyamyc) 1 applic topical BID 14 days #1 BOTTLE 11/21/23 hydralazine 100 mg tablet 100 mg PO TID 30 days #0 tabs 12/17/23 insulin lispro 100 unit/mL subcutaneous pen (Humalog KwikPen (U-100) Insulin) See Protocol subcut ACHS #0 mL 12/17/23 blood sugar diagnostic (OneTouch Verio test strips) 07/31/24 blood-glucose meter (OneTouch Verio Flex Meter) 07/31/24 lancets 33 gauge (OneTouch Delica Plus Lancet) 07/31/24 latanoprost 0.005 % eye drops 1 drp ophthalmic (eye) QHS 07/31/24 ondansetron 4 mg disintegrating tablet 4 mg PO Q6H PRN PRN nausea and vomiting 07/31/24 venlafaxine besylate 112.5 mg tablet,extended release 24 hr 112.5 mg PO DAILY 07/31/24 Hospital Course Operations None Procedures Dialysis and - (Chest x-ray) Summary of Care Provided Minutes Spent on Discharge: 36 Hospital Course: Ms. Davis is a 58-year-old white female who presented to the emergency department [facility] on 07/31/2024 with chief complaint of nausea vomiting, pharyngitis, chest congestion, bilateral ear pressure and a minimally productive cough with general malaise. She had been evaluated twice in the ED [place] on Thursday and Thursday and presented to [facility] ED on Thursday as she had not been improving. She denied fevers or chills or any abdominal pain. She is on dialysis at baseline and makes minimal urine. Vital signs on presentation showed temperature of 97.3, heart rate 78, blood pressure 147/58, respiratory rate was 18 and she was initially 78% on room air however we did find out later during her hospitalization she is to be on chronic oxygen at 2 L. She was never tested on 2 L to see what her oxygen saturation was as she did not make it clear that this is her baseline oxygen requirement however she is not compliant at home. Vital signs on presentation showed a chronic stable anemia with hemoglobin of 10.2 and normal white count, mild chronic thrombocytopenia with a platelet count of 144,000 and a left shift with an 80.9% neutrophilia. Her chemistry panel showed elevated serum creatinine which is her baseline normal electrolytes and no need for urgent dialysis. Her glucose was elevated at 224. proBNP was obtained and found to be elevated at 5291 however the significance of this with her renal dysfunction is unclear. Procalcitonin was 0.47. Again, the clinical significance of this is unclear with the renal dysfunction at baseline. Chest x-ray showed vascular congestion/+- viral pneumonia. COVID/flu/RSV were unremarkable however respiratory viral panel was positive for human metapneumovirus. Sputum culture was obtained and showed gram-positive organisms suspicious for normal los however finalized cultures were still pending at discharge. These will be monitored and addressed if infectious bacterial is identified. Enteric panel and C. difficile were obtained due to diarrhea presentation both were unremarkable. The symptoms were likely due to her human metapneumovirus. She was treated with supportive care. Nephrology was consulted and she was dialyzed once during hospitalization on Thursday. She was able to be on her baseline oxygen after dialysis on 08/02/2024. She needed 1 L at rest and 2 L with exertion. Patient will be given a tank at home and then supplied by [employer] from the rest of her oxygen. Her nausea and vomiting resolved and patient was back on a regular diet prior to discharge. She was tolerating this well without any problems. She was able to be discharged home in stable condition on 08/02/2024. Discharge diagnoses: Human metapneumovirus viral pneumonia Chronic hypoxic respiratory failure Nausea and vomiting Chronic macrocytic anemia/anemia of chronic disease End-stage renal disease History of stroke Vascular dementia CAD Essential hypertension Hyperlipidemia DM-2 Chronic diabetic neuropathy History of gout HFpEF Glaucoma Insomnia Depression Morbid obesity Physical Exam Const alert, oriented x3, no apparent distress, no limitations and well nourished; Negative for average body habitus or healthy appearing Constitutional Narrative: Morbidly obese, upper middle-aged, white female, lying in bed, appears much older than stated age, currently on dialysis and sleeping upon my arrival but awakens easily, appears comfortable, nontoxic General Appearance: cooperative, comfortable, well kempt and well developed Nutritional Appearance: morbidly obese HEENT normocephalic, head/scalp atraumatic, hearing grossly normal bilaterally and moist oral mucous membranes HEENT Narrative: Mallampati 4, no thrush Eyes conjunctivae normal Eyes Narrative: No scleral icterus Neck supple Neck Narrative: Trachea midline Resp normal respiratory effort, no retractions, no use of accessory muscles and clear to auscultation bilaterally Auscultation: Negative for rales, rhonchi or wheezes Cardio regular rate, regular rhythm, S1 normal heart sound, S2 normal heart sound, no murmurs, no rub, no gallops and no clicks GI normal to inspection, nondistended, normoactive bowel sounds, soft to palpation and non-tender GI Narrative: Large protuberant abdomen Extremity no clubbing, cyanosis or edema Extremity Narrative: Pedal and radial pulses are 2+ Skin no jaundice, no petechiae and no mottling Skin Narrative: Evidence of multiple right-sided internal jugular attempts at dialysis catheter placement/IV access Neuro oriented x3, moves all extremities and no focal motor deficits Speech: speech normal Psych affect normal Psych Narrative: Eye contact is good and patient interacts appropriately Weight / BMI Weight Weight: 107.7 kg Body Mass Index (BMI) 44.9 ABG / Lab / Microbiology Data 08/02/24 08:55 08/01/24 07:25 Laboratory: Laboratory Results - last 24 hr 08/01/24 16:48: POC Glucose 149 H 08/02/24 00:04: POC Glucose 133 H 08/02/24 05:25: POC Glucose 129 H 08/02/24 08:55: WBC 7.0, RBC 2.77 L, Hgb 9.1 L, Hct 27.0 L, MCV 97.5, MCH 32.9 H, MCHC 33.7, RDW Std Deviation 55.5 H, RDW Coeff of [place] 15.7 H, Plt Count 133 L, MPV 12.1 H, Immature Gran % (Auto) 0.700, Neut % (Auto) 76.7 H, Lymph % (Auto) 10.5 L, [place] % (Auto) 8.6, Eos % (Auto) 3.2, Baso % (Auto) 0.3, Absolute Neuts (auto) 5.3, Absolute Lymphs (auto) 0.73 L, Nucleated RBC % 0 08/02/24 11:52: POC Glucose 94 Microbiology: Microbiology 08/01/24 00:05 Sputum, Expectorated/Coughed Gram Stain - Final 08/01/24 07:17 Stool Enteric Bacteriology - Final 08/01/24 07:17 Stool Clostridioides difficile (PCR) - Final 07/31/24 23:55 Interface Orders Respiratory Panel (PCR) - Final Human Capron 07/31/24 16:42 Mucosa - Nose SARS-CoV-2, Influenza & RSV (PCR) - Final D/C Instructions Discharge Diet: Renal Diet Discharge Activity: Return to Normal Activity DC O2, CPAP, BIPAP Needs Home O2 Discharge instructions: Yes Type of respiratory needs?: Oxygen Oxygen frequency: Continuous Continuous oxygen liters per minute: 2 DC home with Oxygen: Yes Home O2 MD Review: I have reviewed the oxygen testing, and the patient qualifies for home oxygen equipment and portability. The patient is mobile in the home and the community. Meaningful Use Info Meaningful Use Meaningful Use Diagnoses (Choose all that apply): None applicable Ischemic Stroke Statin Dosing Therapy Reference: STATIN DOSE THERAPY REFERENCE: * Patients > 75 years receive moderate or high dose statin therapy. * Patients 75 years or YOUNGER should receive HIGH intensity statin dose unless contraindicated. You will be required to document reason for non-treatment if statin daily dose does not meet guidelines. HIGH DOSE STATIN THERAPY DAILY Atorvastatin > than or = to 40 mg Rosuvastatin > than or = to 20 mg Amlodipine + Atorvastatin > than or = to 2.5/40 mg Ezetimibe + Simvastatin 10/80 mg Simvastatin 80mg Discharge Plan Admission Admit Date/Time: 07/31/24 20:34 Primary Reason for Your Visit: Sore throat/congestion/cough/nausea/vomiting/diarrhea Attending Provider: Sondra Dumont Primary Care Provider: Page Sutton NP Consulting Providers: Georgina Gill; Ketty Granger; Eboni Polanco Instructions Additional Instructions / Restrictions: 1. You are found to have human metapneumovirus which is a viral infection that causes viral pneumonia. Clinically you need oxygen [id number] which it sounds like is your baseline. Please wear 1 L at rest and 2 L with exertion at home. Continue to do this until otherwise instructed. Discharge Orders/Prescriptions Prescriptions: Continued torsemide 100 mg tablet 50 mg PO BID Patient Comments: per family, hospital never refilled it. Supposed to be taking it. melatonin 5 mg tablet 5 mg PO HS PRN (Reason: Sleep) gabapentin 300 mg capsule 300 mg PO TID PRN (Reason: NEUROPATHY) aspirin 81 MG tablet,chewable 81 mg PO DAILY@0800 atorvastatin 80 MG tablet 80 mg PO QHS carvedilol 12.5 mg tablet 6.25 mg PO BID acetaminophen [Tylenol] 325 mg Tablet 650 mg PO Q6H PRN PRN (Reason: Pain 1-10 Or Fever) Qty: 0 0RF amlodipine 10 MG tablet 10 mg PO DAILY insulin glargine U-300 conc [Toujeo SoloStar U-300 Insulin] 300 unit/mL (1.5 mL) insulin pen 20 unit SC BREAKFAST allopurinol 100 mg tablet 100 mg PO DAILY cholecalciferol (vitamin D3) 50 mcg (2,000 unit) capsule 50 mcg PO DAILY Nephro-Todd 0.8 mg tablet 1 tab PO DAILY ezetimibe 10 mg tablet 10 mg PO QHS insulin lispro [Humalog KwikPen Insulin] 100 unit/mL Insulin Pen See Protocol subcut ACHS Qty: 0 0RF Protocol: 4. Sliding Scale Insulin High-Med Dosing Condition: 150-199 mg/dl = 2 units Condition: 200-259 mg/dl = 4 units Condition: 260-324 mg/dl = 6 units Condition: 325-374 mg/dl = 8 units Condition: 375-409 mg/dl = 10 units Condition: 410-449 mg/dl = 11 units Condition: Greater than 449 call physician Protocol Text: Suggested for: - Patients on Total Daily Insulin Dose of 56-80 units - Patient who are known to be insulin resistant or septic HIGH MEDIUM DOSING ALGORITHM Patient Comments: 5 units at lunch and dinner hydralazine 100 mg tablet 100 mg PO TID 30 Days Qty: 0 0RF Rx Instructions: Hold for SBP less than 130 mmHg nystatin [Nyamyc] 100,000 unit/gram Powder 1 applic topical BID 14 Days Qty: 1 0RF Protocol: *Topical Application Instructions APPLICATION INSTRUCTIONS: apply to groin, abdominal folds, under breasts Rx Instructions: Gently cleans skin folds w/ water/soap, pat dry, apply topical nystatin powder until complete resolution of fold redness/odor. latanoprost 0.005 % drops 1 drp ophthalmic (eye) QHS (DME) blood-glucose meter [OneTouch Verio Flex meter] Misc MISCELLANEOUS Patient Comments: [NO ORIGINAL SIG] (DME) OneTouch Verio test strips Strip 1 strip MISCELLANEOUS 4X/DAY (DME) lancets [OneTouch Delica Plus Lancet] 33 gauge misc 1 lancet MISCELLANEOUS 4X/DAY ondansetron 4 mg tablet,disintegrating 4 mg PO Q6H PRN PRN (Reason: nausea and vomiting) venlafaxine besylate 112.5 mg tablet extended release 24hr 112.5 mg PO DAILY Referrals / Follow Up: Page Sutton MATERIALS PLANNING ANALYST, MATERIALS PLANNING ANALYST-C [Primary Care Provider] - Within 1 Week Disposition Disposition (needs filled in before D/C Order can be placed): Home, Self Care Charges/Coding Visit Charges Inpatient E&M: 07763 Disch Hosp >30min
--- NOTE | 2024-08-02 15:18 | CASEMGMT ---
Social Work- SW met with pt to discuss services received from [facility] and concerns that pt was unhappy with returning to her sister's home. Pt reports that she goes to [facility] and meals on wheels 7 days. Pt reports that she lives with sister in her home with sister's male friend Juan Jose whom they have known for 22 years and whom used to be sister's boyfriend. Pt reports no safety concerns; no one threatens, physically harms, or denies pt daily living necessities. Pt reports that she and Stephy get along, as pt reports that she mostly stays in her room. Pt reports that sister sets up her meds; pt reports that she does remember when to take her medication if sister does not hand them to her 'on time'. Pt did not know anything about finances/if she receives food stamps/amount of her disability/etc. Pt reports that pt sister handles all finances; pt reports that she does not have concerns regarding not having money for things pt needs. Pt reports no needs/concerns at this time. RAN updated RNCM. RAN faxed discharge paperwork to [facility] GERALD Greer
--- NOTE | 2024-08-02 15:21 | PHA.DC_ITS ---
Pharmacy [place] Med Reconciliation Pharmacy Service has performed discharge medication reconciliation for this patient. The patient's discharge medication list was reviewed for discrepancies and discrepancies were resolved. Medications at Discharge Home Medications aspirin 81 mg chewable tablet 81 mg PO DAILY@0800 HEART HEALTH 07/15/18 atorvastatin 80 mg tablet 80 mg PO QHS CHOLESTEROL 08/04/18 torsemide 100 mg tablet 50 mg PO BID diuretic 04/14/19 melatonin 5 mg tablet 5 mg PO HS PRN Sleep 08/03/20 carvedilol 12.5 mg tablet 6.25 mg PO BID blood pressure 09/20/20 acetaminophen 325 mg tablet (Tylenol) 650 mg (2 x 325 mg) PO Q6H PRN PRN Pain 1- 10 Or Fever #0 tabs 10/03/20 amlodipine 10 mg tablet 10 mg PO DAILY blood pressure 01/20/21 insulin glargine U-300 conc 300 unit/mL (1.5 mL) subcutaneous pen (Toujeo SoloStar U-300 Insulin) 20 unit subcut BREAKFAST diabetes 03/21/21 gabapentin 300 mg capsule 300 mg PO TID PRN NEUROPATHY 12/10/22 allopurinol 100 mg tablet 100 mg PO DAILY 01/13/23 cholecalciferol (vitamin D3) 50 mcg (2,000 unit) capsule 50 mcg PO DAILY 01/13/23 ezetimibe 10 mg tablet 10 mg PO QHS 01/13/23 vitamin B complex-vitamin C-folic acid 0.8 mg tablet (Nephro-Todd) 1 tab PO DAILY 01/13/23 nystatin 100,000 unit/gram topical powder (Nyamyc) 1 applic topical BID 14 days #1 BOTTLE 11/21/23 hydralazine 100 mg tablet 100 mg PO TID 30 days #0 tabs 12/17/23 insulin lispro 100 unit/mL subcutaneous pen (Humalog KwikPen (U-100) Insulin) See Protocol subcut ACHS #0 mL 12/17/23 blood sugar diagnostic (OneTouch Verio test strips) 07/31/24 blood-glucose meter (OneTouch Verio Flex Meter) 07/31/24 lancets 33 gauge (OneTouch Delica Plus Lancet) 07/31/24 latanoprost 0.005 % eye drops 1 drp ophthalmic (eye) QHS 07/31/24 ondansetron 4 mg disintegrating tablet 4 mg PO Q6H PRN PRN nausea and vomiting 07/31/24 venlafaxine besylate 112.5 mg tablet,extended release 24 hr 112.5 mg PO DAILY 07/31/24
--- NOTE | 2024-08-04 18:14 | PCM.HOSP.N ---
Hospitalist Note Sputum culture was pending at the time of discharge and Gram stain was unimpressive since the time of discharge sputum culture has tested positive for haemophilus influenza. Will start cefdinir for a total of 7 days. She is to take this every other day and after dialysis on dialysis days. A prescription was faxed to the pharmacy and the patient was called. Unfortunately, she did answer her phone however we did leave a message with instructions and to go cigar packer and picker her prescription and start either tonight or tomorrow.
== END 2024-08-02 16:50 | disposition home or self-care (01) | DRG 193 ==
LOC: ED 20:43 → MS3 20:53
PROVIDERS: Student in an Organized Health Care Education/Training Program; Admitting Provider Family Medicine; Emergency Provider Emergency Medicine; PCP Nurse Practitioner Family; Visit Provider Internal Medicine
DX: J12.9 Viral pneumonia, unspecified (principal); N18.6 End stage renal disease; I13.2 Hypertensive heart and chronic kidney disease with heart failure and with stage 5 chronic kidney disease, or end stage renal disease; J44.0 Chronic obstructive pulmonary disease with (acute) lower respiratory infection; I50.32 Chronic diastolic (congestive) heart failure; Z68.42 Body mass index [BMI] 45.0-49.9, adult; D63.8 Anemia in other chronic diseases classified elsewhere; E11.22 Type 2 diabetes mellitus with diabetic chronic kidney disease; D53.9 Nutritional anemia, unspecified; B96.3 Hemophilus influenzae [H. influenzae] as the cause of diseases classified elsewhere; F01.50 Vascular dementia, unspecified severity, without behavioral disturbance, psychotic disturbance, mood disturbance, and anxiety; E11.40 Type 2 diabetes mellitus with diabetic neuropathy, unspecified; E66.01 Morbid (severe) obesity due to excess calories; E78.5 Hyperlipidemia, unspecified; Z99.2 Dependence on renal dialysis; I25.10 Atherosclerotic heart disease of native coronary artery without angina pectoris; K52.9 Noninfective gastroenteritis and colitis, unspecified; Z79.4 Long term (current) use of insulin; M10.9 Gout, unspecified; E87.70 Fluid overload, unspecified; Z87.891 Personal history of nicotine dependence; Z83.3 Family history of diabetes mellitus; R09.02 Hypoxemia; Z86.16 Personal history of COVID-19; Z86.73 Personal history of transient ischemic attack (TIA), and cerebral infarction without residual deficits; Z95.5 Presence of coronary angioplasty implant and graft; Z11.52 Encounter for screening for COVID-19; Z79.899 Other long term (current) drug therapy; Z79.85 Long-term (current) use of injectable non-insulin antidiabetic drugs; Z79.82 Long term (current) use of aspirin; Z79.02 Long term (current) use of antithrombotics/antiplatelets
CPT/HCPCS: 36415; 71046; 80053; 82962; 83735; 83880; 84100; 84145; 85025; 87070; 87077; 87205; 87493; 87506; 87631; 87633; 90937; 94640; 94668; 97161; 97166; 99283; A4216; G0257; J1940; J2405

== ENCOUNTER 2024-10-09 08:22 | Inpatient (IN) | payer MEDICARE, MEDICAID, SELFPAY ==
[2024-10-09] VITALS (14 sets, daily range): BP systolic 136–168; BP diastolic 55–80; PULSE 68–78; RESP 14–67; TEMP 36.8–37.4; O2SAT 93–99; BMI 47.3; BMI 45.5
--- NOTE | 2024-10-09 08:33 | ED.VIS.DYS ---
HPI History of Present Illness Chief Complaint: Shortness of Breath Informant: patient Onset/Context/Timing Onset: Yesterday Context: gradual Timing: Continuous Quality: Positive for Dyspnea on exertion Worsened by: Exertion Relieved by: Nothing Associated Symptoms cough, rhinorrhea, ear pain, fever, sore throat, subjective and chills Chest Pain: Positive for Sharp and - (Substernal) Narrative Narrative: Patient presents with shortness of breath that began yesterday. Patient states she started having a cough. Patient states she was coughing up some thick sputum. Patient states her sister had a cough recently. Patient states she did go to dialysis yesterday and was there for 3 hours. Patient states she normally goes on Tuesdays, , and Saturdays. Patient admits to a sore throat. Patient admits to subjective fevers and chills. Patient states her breathing is worse with exertion. Patient states nothing makes it better. Patient also admits to rhinorrhea and left ear pain. Patient also admits to some nausea and vomiting. 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 to type 2 diabetes mellitus Hypoxia ESRD (end stage renal disease) on dialysis Dependence on renal dialysis Easy bruising Dietary restriction History of edema Hx of cardiovascular stress test Hx of echocardiogram Cardiology follow-up encounter TIA (transient ischemic attack) Acute alteration in mental status Community acquired pneumonia ESRD (end stage renal disease) on dialysis Wears glasses Insulin dependent diabetes mellitus Low iron Former smoker Cardiology follow-up encounter Chronic heart failure with preserved ejection fraction (HFpEF) History of non-ST elevation myocardial infarction (NSTEMI) (01/20/21) Debility COVID-19 (01/20/21) Inability to walk Generalized weakness Non-STEMI (non-ST elevated myocardial infarction) (01/20/21) Ischemic cerebrovascular accident (CVA) (04/2018) Respiratory insufficiency Hypoxia Anxiety Bilateral carotid bruits Hyperlipidemia Malignant hypertension Headache Type 2 diabetes mellitus without complication Essential hypertension Atherosclerosis of coronary artery of [place] heart without angina pectoris GERD (gastroesophageal reflux disease) Depression History of renal calculi History of cholelithiasis Morbid obesity Acute renal injury due to circulatory failure Home Medications ?Medication ?Instructions ?Recorded ?Last Taken ?Type aspirin 81 mg chewable tablet 81 mg PO DAILY@0800 [facility] 07/15/18 04/26/23 History atorvastatin 80 mg tablet 80 mg PO QHS CHOLESTEROL 08/04/18 04/26/23 History torsemide 100 mg tablet 50 mg PO BID diuretic 04/14/19 04/26/23 History melatonin 5 mg tablet 5 mg PO HS PRN Sleep 08/03/20 01/19/21 History carvedilol 12.5 mg tablet 6.25 mg PO BID blood pressure 09/20/20 04/27/23 History acetaminophen 325 mg tablet 650 mg (2 x 325 mg) PO Q6H PRN PRN 10/03/20 Unknown Rx (Tylenol) Pain 1-10 Or Fever #0 tabs amlodipine 10 mg tablet 10 mg PO DAILY blood pressure 01/20/21 04/27/23 History insulin glargine U-300 conc 300 20 unit subcut BREAKFAST diabetes 03/21/21 04/26/23 History unit/mL (1.5 mL) subcutaneous pen (Toujeo SoloStar U-300 Insulin) gabapentin 300 mg capsule 300 mg PO TID PRN NEUROPATHY 12/10/22 Unknown History allopurinol 100 mg tablet 100 mg PO DAILY 01/13/23 04/26/23 History cholecalciferol (vitamin D3) 50 50 mcg PO DAILY 01/13/23 04/26/23 History mcg (2,000 unit) capsule ezetimibe 10 mg tablet 10 mg PO QHS 01/13/23 04/26/23 History vitamin B complex-vitamin C-folic 1 tab PO DAILY 01/13/23 04/26/23 History acid 0.8 mg tablet (Nephro-Todd) nystatin 100,000 unit/gram topical 1 applic topical BID 14 days #1 11/21/23 Unknown Rx powder ([facility]) BOTTLE hydralazine 100 mg tablet 100 mg PO TID 30 days #0 tabs 12/17/23 Unknown Rx insulin lispro 100 unit/mL See Protocol subcut ACHS #0 mL 12/17/23 Unknown Rx subcutaneous pen (Humalog KwikPen (U-100) Insulin) [facility] Unknown History Verio test strips) blood-glucose meter (OneTouch 07/31/24 Unknown History Verio Flex Meter) lancets 33 gauge (OneTouch Delica 07/31/24 Unknown History Plus Lancet) latanoprost 0.005 % eye drops 1 drp ophthalmic (eye) QHS 07/31/24 Unknown History ondansetron 4 mg disintegrating 4 mg PO Q6H PRN PRN nausea and 07/31/24 Unknown History tablet vomiting venlafaxine besylate 112.5 mg 112.5 mg PO DAILY 07/31/24 Unknown History tablet,extended release 24 hr gabapentin 100 mg capsule 100 mg PO TID 10/09/24 Unknown History ropinirole 0.25 mg tablet 0.25 mg PO BID 10/09/24 Unknown History Allergy/AdvReac Type Severity Reaction Status Date / Time No Known Allergies Allergy Verified 07/31/24 15:08 Family History Mother Diabetes Heart disease Hypertension Father Hypertension Heart disease Brother Heart disease Hypertension Sister Heart disease Diabetes Surgical History History of surgery History of arteriovenostomy for renal dialysis (~03/2021) History of History of appendectomy History of cholecystectomy History of coronary artery stent placement (06/2016) History of left heart catheterization (05/27/21) Social History household members: family Smoking Status: Former smoker alcohol intake: never substance use type: does not use ROS ROS ED Constitutional Constitutional ED: Reports chills and fever(s) Eyes Eyes: Denies blurry vision or change in vision ENT ENT ED: Reports ear pain left and rhinorrhea; Denies sore throat Cardiovascular Cardiovascular: Reports chest pain; Denies palpitations Respiratory/Chest Respiratory/Chest: Reports cough and dyspnea Gastrointestinal Gastrointestinal: Reports nausea and vomiting Genitourinary Genitourinary ED: Denies dysuria or hematuria Musculoskeletal Musculoskeletal: Reports back pain; Denies neck pain Integumentary Denies abscess or rash Neurologic Neurologic: Reports headache(s); Denies weakness Allergic/Immunologic Allergic/Immunologic ED: Denies mouth swelling or urticaria EXAM Physical Exam Const Vital Signs: 10/09/24 08:24 10/09/24 08:31 10/09/24 09:23 Temperature 98.2 F 98.4 F Temperature Source Oral Oral Pulse Rate 70 Respiratory Rate 67 H 14 Respiratory Effort Normal Respiratory Depth Normal Respiratory Pattern Normal Blood Pressure 152/69 H 168/80 H Blood Pressure Mean 96 109 Pulse Ox 95 98 Oxygen Delivery Method Room Air Nasal Cannula Nasal Cannula Oxygen Flow Rate (L/min) 2 10/09/24 09:33 10/09/24 10:00 10/09/24 11:00 Temperature 98.7 F 98.4 F Temperature Source Oral Oral Pulse Rate 69 70 Respiratory Rate 18 20 H Respiratory Effort Respiratory Depth Respiratory Pattern Blood Pressure 155/79 H 136/77 H Blood Pressure Mean 104 96 Pulse Ox 97 99 99 Oxygen Delivery Method Nasal Cannula Nasal Cannula Nasal Cannula Oxygen Flow Rate (L/min) 2 2 2 10/09/24 12:00 Temperature Temperature Source Pulse Rate 76 Respiratory Rate 16 Respiratory Effort Respiratory Depth Respiratory Pattern Blood Pressure 136/77 H Blood Pressure Mean 96 Pulse Ox 98 Oxygen Delivery Method Nasal Cannula Oxygen Flow Rate (L/min) 2 Positive well nourished and well developed Constitutional Narrative: BMI is 47.4. General Appearance ED: well developed and NAD HEENT Reports moist mucous membranes Neck supple and no meningeal signs Resp Resp Narrative: Respiratory effort was limited. Auscultation: diminished lung sounds diffuse Cardio regular rate and regular rhythm GI non-tender and non-distended Palpation: soft Extremity normal to inspection General Extremety ED: Negative for edema or tenderness General Extremity: Negative for edema Neuro oriented x3, CN's II-XII intact bilaterally and no sensory deficits noted Giovanna Coma Scale: document GCS findings Spontaneous Obeys Commands Oriented 15 Sensorium / Orientation: alert Speech: speech normal Motor Exam: strength 5/5 throughout Psych mental status grossly normal MDM MDM MDM Narrative Medical decision making narrative: Differential diagnosis includes pneumonia, bronchitis, cardiac dysrhythmia, cardiac ischemia, electrolyte abnormality, congestive heart failure, and viral illness. EKG will be obtained to assess for cardiac dysrhythmia and cardiac ischemia. Chest x-ray will be obtained to assess for pneumonia, bronchitis, and congestive heart failure. CBC will be obtained to assess for leukocytosis and anemia. Basic metabolic profile will be obtained to assess for electrolyte abnormality and renal function. High-sensitivity troponin will be obtained to assess for cardiac ischemia. BNP will be obtained to assess for congestive heart failure. History & Record Review Additional record(s) reviewed:: Prior inpatient record, Prior outpatient record, Prior ED visit and Prior labs Lab Data Labs: Laboratory Results - last 24 hr 10/09/24 09:18 WBC 6.1 RBC 3.26 L Hgb 10.4 L Hct 31.3 L MCV 96.0 MCH 31.9 MCHC 33.2 RDW Std Deviation 55.8 H RDW Coeff of [place] 15.9 H Plt Count 153 MPV 12.7 H Immature Gran % (Auto) 0.500 Neut % (Auto) 68.0 Lymph % (Auto) 8.5 L Hood % (Auto) 16.2 H Eos % (Auto) 6.5 H Baso % (Auto) 0.3 Absolute Neuts (auto) 4.2 Absolute Lymphs (auto) 0.52 L Nucleated RBC % 0 Sodium 136 Potassium 4.5 Chloride 95 L Carbon Dioxide 29.0 Anion Gap 12 BUN 34 H Creatinine 5.18 H Estim Creat Clear Calc 13.86 L Est GFR (MDRD) Non-Af 9 L BUN/Creatinine Ratio 6.6 L Glucose 104 H Calcium 8.8 Radiography Chest X-Ray - ED: 2 View, Read by ED Physician, Read by Radiologist and Right Infiltrate Diagnostic Testing: Clinical Impression(s) from Imaging Studies Chest X-Ray 10/09/24 09:50 IMPRESSION: 1. Right perihilar opacities, which may represent pneumonitis/pneumonia. 2. Stable mild cardiomegaly. Reading Location: [id number] and lateral chest x-ray was obtained. There are 2 views. On my independent interpretation, lung g[place] show a right perihilar infiltrate. There is mild cardiomegaly. Bony thorax is normal. There is no acute process noted. Radiologist also interpreted the x-ray and agrees. EKG Initial EKG: Attestation: I personally reviewed and interpreted this EKG as follows: Interpretation: Sinus Rhythm (With first-degree AV block with a rate of 67), No Acute Injury Pattern and AV Block (First-degree) Comments: EKG was obtained. On my independent interpretation, it shows sinus rhythm with a first-degree AV block with a rate of 67. VA interval was prolonged at 290 ms. QRS interval was normal at 118 ms. QTc interval was normal at 462 ms. There are no acute ST or T wave changes. There is poor R wave progression. Prior EKG tracings: available for review Prior: Unchanged (12/14/2023) Treatment and Re-Evaluation :: Patient was advised of her findings. Patient was given a dose of Zithromax here. Patient was ambulated in the emergency department on room air. Patient pulse oximeter dropped to 85% with ambulation. Because of this, admission to the hospital was recommended. Case was discussed with the hospitalist. He will admit the patient to his service. Patient and family understood and were agreeable with the plan. All questions were answered. Discharge Plan Dx/Rx/DC Orders Clinical Impression: Pneumonia, Essential hypertension, Hypoxia Disposition Disposition: Acute Care Hospital [facility]
--- NOTE | 2024-10-09 09:01 | EKG12_ITS ---
Test Reason : CP Blood Pressure : */* mmHG Vent. Rate : 67 BPM Atrial Rate : 67 BPM P-R Int : 290 ms QRS Dur : 118 ms QT Int : 438 ms P-R-T Axes : 30 248 -14 degrees QTcB Int : 462 ms Sinus rhythm with 1st degree A-V block Septal infarct (cited on or before 22-Jul-2022) Lateral infarct , age undetermined Abnormal ECG Confirmed by Eddie Reynolds [id number]), technical editor TONY WALKER ([id number]) on 10/10/2024 1:03:50 PM Referred By: Cipriano Baldwin Confirmed By: Eddie Reynolds
--- OUTSIDE RECORDS SUMMARY | 2024-10-09 09:29 | XMS RPT_ITS | CCD ---
Author Organization [facility] Care Team Providers Care Steel Sampler Name Role Phone JON WORTHINGTON Referring Unavailable JON WORTHINGTON Referring Unavailable LESLEY BLANDON-NILES, DENISSE Primary Care Physician Maria Luisa Bridges Unavailable Unavailable Maria E PT, Kelli Unavailable Unavailable LESLEY BLANDON-DENISSE CAGE Primary Care Physician Macarena Smith Unavailable Unavailable Unavailable Lesley CUSHION SEWER, CUSHION SEWER-C Denisse Primary Care Provider Dr. Samm Talley Emergency Provider [phone] Patsy Wyman Admit Provider Dr. Patsy Wyman Attending Provider Dr. Patsy Wyman Other Provider Dr. Sanaz Gomez Other Provider Dr. Mahamed Dunn Attending Provider Dr. Mahamed Dunn Other Provider Dr. Patsy Montenegro Emergency Provider Dr. Jalen Romano Attending Provider [phone] Lesley CUSHION SEWER, CUSHION SEWER-C Denisse Primary Care Provider [phone] Lesley CUSHION SEWER, CUSHION SEWER-C Denisse Referring Provider [phone] Dr. Cipriano Trujillo Attending Provider [phone] Cipriano Trujillo Referring Provider [phone] Cipriano Trujillo Other Provider [place]on CUSHION SEWER, CUSHION SEWER-C [place] Primary Care Provider [phone] Dr. Cipriano Trujillo Attending Provider [phone] Cipriano Trujillo Referring Provider [phone] Cipriano Trujillo Other Provider [place]on CUSHION SEWER, CUSHION SEWER-C [place] Referring Provider [phone] MARLY Quinonez Attending Provider [phone] Tarison CUSHION SEWER, CUSHION SEWER-C [place] Primary Care Provider [place]on CUSHION SEWER, CUSHION SEWER-C [place] Referring Provider [phone] Dr. Cipriano Trujillo Attending Provider [phone] Cipriano Trujillo Referring Provider [phone] Cipriano Trujillo Other Provider MARLY Quinonez Attending Provider [phone] L[place]on WASTE PICKER, [place] Unavailable [place]on WASTE PICKER, [place] Primary Care Provider TIMOTHY REYES, JEREMY PEREZ Admitting Unava ilable TIMOTHY REYES, JEREMY PEREZ Attending Unava ilable MACARENA SMITH [facility] Care Unavailable LORSON ANIMAL FEEDER-WASTE PICKER, CAMPBELL Attending Unavail able LORSON ANIMAL FEEDER-WASTE PICKER, [facility] Unavail able EVELINA CURTIS MD Attending Unavail able LORSON ANIMAL FEEDER-WASTE PICKER, [facility] Care Unavail able DR FREDDIE BURRIS DO Attending Unavailable LORSON ANIMAL FEEDER-WASTE PICKER, [facility] Care Unavail able LORSON ANIMAL FEEDER-WASTE PICKER, DENISSE Attending Unavail able LORSON ANIMAL FEEDER-WASTE PICKER, [facility] Care Unavail able LORSON ANIMAL FEEDER-WASTE PICKER, [facility] Care Unavail able LORSON ANIMAL FEEDER-WASTE PICKER, CAMPBELL Attending Unavail able LORSON ANIMAL FEEDER-WASTE PICKER, CAMPBELL Attending Unavail able LORSON ANIMAL FEEDER-WASTE PICKER, [facility] Unavail able LORSON ANIMAL FEEDER-WASTE PICKER, [facility] Care Unavail able LEE CASH MD Attending Unavailpineda CROW MD, DR SULLIVAN Attending Unavailable LORSON ANIMAL FEEDER-WASTE PICKER, [facility] Care Unavail able DR NATE CROW MD Attending Unavailable [place]SON ANIMAL FEEDER-WASTE PICKER, [place] Primary Care Unavail able LORSON ANIMAL FEEDER-WASTE PICKER, [place] Primary Care Unavail able LORSON ANIMAL FEEDER-WASTE PICKER, CAMPBELL Attending Unavail able LORSON ANIMAL FEEDER-WASTE PICKER, CAMPBELL Attending Unavail able LORSON ANIMAL FEEDER-WASTE PICKER, [facility] Care Unavail able Bárbara, Jayaprakas Consulting Unavailable [facility], Mahamed Admitting Unavailable [facility], Mahamed Attending Unavailable [place]on CUSHION SEWER, [facility] Care Unavailable [facility], Mahamed Consulting Unavailable [place]on CUSHION SEWER, [facility] Care Unavailable White, Georgina L Admitting Unavailable White, Georgina L Attending Unavailable White, Georgina L Consulting Unavailable Koram, Eboni Yumiko Attending Unavailable Bárbara, Jayaprakas Consulting Unavailable Koram, Eboni Yumiko Consulting Unavailable Sondra Dumont Attending Unavailable Sondra Dumont Consulting Unavailable Fabian Perez Consulting Unavailable [facility], Mahamed Referring Unavailable Bobby Irizarry Attending Unavailable Stevens, Tapan Consulting Unavailable Bobby Irizarry Consulting Unavailable Mignon Deleon Consulting Unavailable Nawaf Walsh Consulting Unavailable Javier Johnson Consulting Unavailable Georgette Mcmillan Consulting Unavailab Chepe Junior Consulting Unavailable Jesús Cruz Consulting Unavailable Jaz Harris Consulting Unavailable AlGus uriarte Consulting Unavailable Dahlia, Julio Consulting Unavailable Darren Francisco Consulting Unavailable Shahbaz Gallardo Consulting Unavailable Kiana Gomez Consulting Unavailable Soy Reveles Consulting Unavailable Mario, Darryl Consulting Unavailable Fredrick Colbert Consulting Unavailable Caty CUSHION SEWERFidelina Consulting Unavailable Tarison CUSHION SEWER, [facility] Unavailable Michelet Harper Attending Unavailable [place] CUSHION SEWER, [facility] Care Unavailable Samm Talley Attending Unavailable White, Georgina L Admitting Unavailable White, Georgina L Consulting Unavailable [place] CUSHION SEWER, [facility] Unavailable Sondra Dumont Attending Unavailable Bárbara, Jayaprakas Consulting Unavailable Koram, Eboni Yumiko Consulting Unavailable [facility], Mahamed Admitting Unavailable [facility], Mahamed Attending Unavailable [place] CUSHION SEWER, [facility] Unavailable Bárbara, Jayaprakas Consulting Unavailable [place] CUSHION SEWER, [facility] Unavailable Georgina Gill L Attending Unavailable Fabian Perez Consulting Unavailable [facility], Mahamed Referring Unavailable [facility], Mahamed Admitting Unavailable Stevens, Tapan Consulting Unavailable Bobby Irizarry Consulting Unavailable Mignon Deleon Consulting Unavailable Nico, Edmonica Consulting Unavailable Elizabeth, Javier Consulting Unavailable Habtegebranthony, Georgette Consulting Unavailab le Dand, Chepe Consulting Unavailable Cruz, Jesús Consulting Unavailable Steven, Jaz Consulting Unavailable Aljundi, Lamia Consulting Unavailable Dahlia, Julio Consulting Unavailable Irukulla, Darren Consulting Unavailable Paulina, Shahbaz Consulting Unavailable Mario, Darryl Consulting Unavailable Fredrick Colbert Consulting Unavailable Voroshilova, Shannan Consulting Unavailable Shaun, Mahamed Consulting Unavailable Lesley DUGGAN, [place] Primary Care Unavailable Mahamed Dunn Attending Unavailable Fabian Perez Consulting Unavailable Shaun Mahamed Referring Unavailable Shaun Mahamed Admitting Unavailable Hilda Tapan Consulting Unavailable Bobby Irizarry Consulting Unavailable Mignon Deleon Consulting Unavailable Matheikarie, Edward Consulting Unavailable Elizabeth, Javier Consulting Unavailable Habtegebriel, Georgette Consulting Unavailab le Dand, Chepe Consulting Unavailable Cruz, Jesús Consulting Unavailable Steven, Jaz Consulting Unavailable Aljundi, Lamia Consulting Unavailable Dahlia, Julio Consulting Unavailable Irukulla, Darren Consulting Unavailable Paulina, Shahbaz Consulting Unavailable Mario, Darryl Consulting Unavailable Fredrick Colbert Consulting Unavailable Voroshilova, Shannan Consulting Unavailable Shaun, Mahamed Consulting Unavailable Georgina Gill Attending Unavailable Georgina Gill Consulting Unavailable Radha Henderson Attending Unavailable DENISSE SUTTON Attending Unavailable DENISSE SUTTON Primary Care Unavailable DR NATE CROW MD Attending Unavailable DENISSE SUTTON Primary Care Unavailable DENISSE SUTTON Primary Care Unavailable DENISSE SUTTON Attending Unavailable DENISSE SUTTON Attending Unavailable [facility] Care Unavailable LESLEY DENISSE Primary Care Unavailable DENISSE SUTTON Attending Unavailable LESLEY DENISSE Primary Care Unavailable DR REENA LAMAS DO Attending Unavailpineda SUTTON DENISSE [facility] Unavailable TORRI MCCLAIN DO Attending Unavailable Medications Current Medications Medication Drug Class(es) Dates Sig (Normalized) Sig (Original) acetaminophen 325 mg oral tablet (12 sources) Start: 12-28-2023 acetaminophen 325 mg oral tablet Dose : 650 mg = 2 tab(s), Oral, q6h, PRN as needed for pain, # 24 tab(s), 0 Refill(s) Start Date: 12/28/23 Status: Ordered Quantity: 24.0 Unit: tab(s) Repeat number: 1 Start: 10-03-2020 take 2 tablets by mo uth every six hours as needed Acetaminophen (Tylenol) 325 mg Tablet Active 650 MG PO EVERY 6 HOURS NEEDED 0 October 03, 2020 12:00am Acidophilus Probiotic Blend oral capsule (17 sources) Start: 08-09-2020 take 1 capsule by mouth once daily Acidophilus Probiotic Blend oral capsule Dose = 1 cap(s), Oral, qDay, # 100 cap(s), 3 Refill(s), Pharmacy: [facility], 160, cm, 08/09/20 9:31:00 EDT, Height, kg, 08/09/20 9:31:00 EDT, Dosing Weight Start Date: 08/09/20 Status: Ordered albuterol 0.833 mg/ml / ipratropium bromide 0.167 mg/ml inhalation solution (20 sources) Anticholinergi c, beta2-Adrenerg ic Agonist Start: 12-28-2023 take 1 dose by inhalation every eight hours as needed for wheezing albuterol-ipratrop ium 2.5 mg-0.5 mg/3 mL inhalation solution Dose = 3 mL, Inhalation, q8hr, PRN as needed for shortness of breath or wheezing, # 120 EA, 0 Refill(s) Start Date: 12/28/23 Status: Ordered Quantity: 120.0 Unit: EA Repeat number: 1 Start: 01-13-2018 End: 06-04-2018 take 1 mL by inhalation every four hours Ipratropium-Albuterol Discontinued 3 ML INHALATION EVERY 4 HOURS May 20, 2018 10:40pm June 04, 2018 1:03pm allopurinol 100 mg oral tablet (20 sources) Xanthine Oxidase Inhibitor Start: 05-04-2020 Allopurinol 100 MG Oral Tablet Quantity: 30 Refills: 0 Ordered: 18-Nov-2020 DO Start : 04-May-2020 Active Start: 12-26-2019 End: 04-20-2025 allopurinol 100 mg oral tabl et Dose : 100 mg = 1 tab(s), Oral, qDay, # 90 tab(s), 3 Refill(s), Pharmacy[place] [id number], 160.5, cm, 04/13/24 15:35:00 EST, Height, kg, 04/13/24 15:35:00 EST, Dosing Weight Start Date: 04/25/24 Stop Date: 04/20/25 Status: Ordered Quantity: 90.0 Unit: tab(s) Repeat number: 4 ALPRAZolam 1 mg oral tablet (3 sources) Benzodiazepine Start: 04-15-2023 take 1 tablet by mouth once Alprazolam (Xanax) 1 mg tablet Active 1 MG PO ONCE April 15, 2023 1:00am take prior to leaving home for surgery for fistula creation amLODIPine 10 mg oral tablet (20 sources) Dihydropyridine Calcium Channel Ángela Start: 03-28-2024 amLODIPine 10 mg oral tablet Dose : 10 mg = 1 tab(s), Oral, qDay, # 90 tab(s), 3 Refill(s), Pharmacy: [place] [id number], 158, cm, 02/10/24 8:25:00 EST, Height, kg, 02/10/24 8:24:00 EST, Dosing Weight Start Date: 03/28/24 Status: Ordered Quantity: 90.0 Unit: tab(s) Repeat number: 4 Start: 04-27-2023 amLODIPine 10 mg oral tablet Dose : 10 mg = 1 tab(s), Oral, qDay, # 90 tab(s), 3 Refill(s), Pharmacy: [place] [id number], 62, cm, 03/10/23 16:45:00 EST, Height, kg, 03/10/23 16:37:00 EST, Dosing Weight Start Date: 04/27/23 Status: Ordered Start: 11-14-2020 amLODIPine Bes ylate 10 MG Oral Tablet Quantity: 30 Refills: 0 Ordered: 09-Dec-2020 DO Start : 14-Nov-2020 Active Start: 11-28-2019 End: 01-20-2021 amLODIPine 10 mg oral tablet Dose : 10 mg = 1 tab(s), Oral, qDay, # 90 tab(s), 3 Refill(s), Pharmacy: [place] [id number], 62, cm, 03/10/23 16:45:00 EST, Height, kg, 03/10/23 16:37:00 EST, Dosing Weight Start Date: 04/27/23 Status: Ordered apixaban 5 mg oral tablet (20 sources) Factor Xa Inhibitor Start: 11-14-2020 Eliquis 5 MG Oral Tablet Quantity: 60 Refills: 0 Ordered: 14-Nov-2020 DO Start : 14-Nov-2020 Active Start: 06-04-2018 End: 07-23-2022 take 5 mg by mouth twice daily Apixaban Discontinued 5 MG PO TWICE A DAY August 04, 2018 5:47pm July 23, 2022 4:00pm . aspirin 81 mg delayed release oral tablet (20 sources) Platelet Aggregation Inhibitor, Nonsteroidal Anti-inflammatory Drug Start: 01-12-2019 aspirin 81 mg ora l delayed release tablet Dose : 81 mg = 1 tab(s), Oral, qDay Start Date: 01/12/19 Status: Ordered Repeat number: 1 Start: 01-12-2019 aspirin 81 mg oral delayed release tablet Dose : 81 mg = 1 tab(s), Oral, qDay Start Date: 01/12/19 Status: Ordered Start: 07-15-2018 take 81 mg by mouth once daily Aspirin Active 81 MG PO DAILY@0800 July 15, 2018 12:00am Start: 01-09-2018 End: 06-04-2018 take 81 mg by mouth once daily Aspirin Discontinued 81 MG PO DAILY January 09, 2018 12:00am June 04, 2018 1:02pm Aspirin 81 MG TA BS Quantity: 0 Refills: 0 Ordered: 30-Aug-2021 DO Active atorvastatin 80 mg oral tablet (20 sources) HMG-CoA Reductase Inhibitor Start: 10-11-2020 Atorvastatin Calcium 80 MG Oral Tablet Quantity: 30 Refills: 0 Ordered: 09-Dec-2020 DO Start : 11-Oct-2020 Active Start: 08-04-2018 End: 05-18-2026 atorvastatin 80 mg oral tabl et Dose : 80 mg = 1 tab(s), Oral, qDay, # 90 tab(s), 3 Refill(s), Pharmacy: [place] [id number], 155, cm, 05/03/24 15:44:00 EST, Height, kg, 05/03/24 15:44:00 EST, Dosing Weight Start Date: 05/16/24 Stop Date: 05/11/25 Status: Ordered Quantity: 90.0 Unit: tab(s) Repeat number: 4 Start: 05-18-2018 End: 05-20-2018 take 40 mg by mouth at bedtime Atorvastatin Discontinu ed 40 MG PO AT BEDTIME May 20, 2018 1:00am May 20, 2018 10:40pm B Complex With C 20-Folic Acid (Intervale Caps) 1 mg capsule (4 sources) Start: 01-13-2023 take 1 capsule by mouth once daily B Complex With C 20-Folic Acid (Intervale Caps) 1 mg capsule Active 1 CAP PO DAILY January 12, 2023 11:00pm Start: 01-13-2023 take 1 capsule by mo uth once daily B Complex With C 20-Folic Acid (Intervale Caps) 1 mg capsule Active 1 CAP PO DAILY January 13, 2023 12:00am B Complex-Vitamin C-Folic Acid (Nephro-Todd) 0.8 mg tablet (10 sources) Start: 01-13-2023 take 1 tablet by mouth once daily B Complex-Vitamin C-Folic Acid (Nephro-Todd) 0.8 mg tablet Active 1 TABLET PO DAILY January 13, 2023 12:00am Start: 01-13-2023 take 1 tablet by castro th once daily B Complex-Vitamin C-Folic Acid (Nephro-Todd) 0.8 mg tablet Active 1 TABLET PO DAILY January 12, 2023 11:00pm Start: 07-12-2022 End: 12-10-2022 B Complex-Vitamin C-Folic Ac id (Nephro-Todd) 0.8 mg tablet Discontinued 1 TABLET DAILY July 11, 2022 11:00pm December 10, 2022 2:42pm Start: 07-12-2022 End: 12-10-2022 B Complex-Vitamin C-Folic Ac id (Nephro-Todd) 0.8 mg tablet Discontinued 1 TABLET DAILY July 12, 2022 12:00am December 10, 2022 3:42pm Start: 07-12-2022 B Complex-Shagufta min C-Folic Acid (Nephro-Todd) 0.8 mg tablet Active 1 TABLET DAILY July 12, 2022 12:00am B Complex-Vitamin C-Folic Acid [Vitamin B Complex-Vitamin C-Folic Acid 0.8 Mg Tablet] (Vitamin B Complex-Vitamin C-Folic Acid 0.8 Mg ) 0.8 mg tablet (1 source) Start: 01-13-2023 take 1 tablet by mouth once daily B Complex-Vitamin C-Folic Acid [Vitamin B Complex-Vitamin C-Folic Acid 0.8 Mg Tablet] (Vitamin B Complex-Vitamin C-Folic Acid 0.8 Mg ) 0.8 mg tablet Active 1 TABLET PO DAILY January 13, 2023 12:00am Blood Glucose Test Machine (20 sources) Start: 01-31-2022 Blood Glucose Test Machine See Instructions, Brand type per insurance or patient preference. Dx: E11.9, pt insulin dependent, test 4times/day, # 1 EA, 0 Refill(s), Pharmacy: [place] [id number], 159, cm, 01/21/22 15:18:00 EDT, Height, 97.1, kg, 01/21/22 15:18:00... Start Date: 01/31/22 Status: Ordered Start: 03-28-2020 Blood Glucose Test Machine See Instructions, Brand type per insurance or patient preference. Dx: E11.9, pt insulin dependent, test 4times/day, # 1 EA, 0 Refill(s), Pharmacy: [facility], 160, cm, 03/13/20 13:36:00 EST, Height, 93.4, kg, 03/13/20 13:36:00 EST, Dosing Weight Start Date: 03/28/20 Status: Ordered Start: 02-16-2019 Blood Glucose Test Machine See Instructions, Use as directed Brand type per insurance or patient preference, # 1 EA, 0 Refill(s), Pharmacy: [id number] Start Date: 02/16/19 Status: Ordered Blood Pressure Cuff (9 sources) Start: 05-12-2023 Blood Pressure Cuff See Instructions, Check and Log Blood Pressure Daily, # 1 EA, 0 Refill(s), Pharmacy: [facility] [id number], (HFpEF) heart failure with preserved ejection fraction Systolic murmur, 155, cm, 05/12/23 16:07:00 EST, Height, 102.2, kg, 05/12/23 16:07:00 EST, Dosing Weight Start Date: 05/12/23 Status: Ordered Quantity: 1.0 Unit: EA Repeat number: 1 Indications: Cardiac murmur, unspecified; Unspecified diastolic (congestive) heart failure; Start: 05-12-2023 Blood Pressure Cuff See Instructions, Check and Log Blood Pressure Daily, # 1 EA, 0 Refill(s), Pharmacy: [place] [id number], (HFpEF) heart failure with preserved ejection fraction Systolic murmur, 155, cm, 05/12/23 16:07:00 EST, Height, 102.2, kg, 05/12/23 16:07:00 EST, Dosing Weight Start Date: 05/12/23 Status: Ordered brimonidine tartrate 2 mg/ml ophthalmic solution (1 source) alpha-Adrenergic Agonist Start: 11-07-2011 BRIMONIDINE 0.2 % ophthalmic solution Budesonide / formoterol (1 source) Corticosteroid, beta2-Adrenergic Agonist Start: 01-06-2012 take 2 puff(s) by inhalation twice daily budesonide-formo terol (SYMBICORT) 160-4.5 mcg/actuation inhaler Inhale 2 Puffs as instructed twice daily. 1 Inhaler 4 01/06/2012 Active carvedilol 12.5 mg oral tablet (20 sources) alpha-Adrenergic Ángela, beta-Adrenergic Ángela Start: 11-05-2023 Coreg 12.5 mg oral tablet Dose : 12.5 mg = 1 tab(s), Oral, BID, # 180 tab(s), 3 Refill(s), Pharmacy: [place] [address], 155, cm, 10/27/23 15:18:00 EDT, Height, kg, 10/27/23 15:18:00 EDT, Dosing Weight Start Date: 11/05/23 Status: Ordered Quantity: 180.0 Unit: tab(s) Repeat number: 4 Start: 12-16-2022 Coreg 12.5 mg oral tablet Dose : 12.5 mg = 1 tab(s), Oral, BID, # 180 tab(s), 3 Refill(s), Pharmacy: [place] [address], 154.9, cm, 11/18/22 8:18:00 EDT, Height, kg, 11/18/22 8:18:00 EDT, Dosing Weight Start Date: 12/16/22 Status: Ordered Start: 09-03-2022 Coreg 12.5 mg oral tablet Dose : 12.5 mg = 1 tab(s), Oral, BID, # 60 tab(s), 3 Refill(s), Pharmacy: [place] [id number], 155, cm, 09/03/22 10:30:00 EDT, Height Start Date: 09/03/22 Status: Ordered Start: 07-31-2021 End: 01-08-2023 Coreg 6.25 mg oral tablet Do se : 6.25 mg = 1 tab(s), Oral, BID, # 60 tab(s), 11 Refill(s), Pharmacy: [place] [id number], 160, cm, 12/13/21 17:24:00 EDT, Height, kg, 12/14/21 15:31:00 EDT, Dosing Weight Start Date: 01/13/22 Stop Date: 01/08/23 Status: Ordered Start: 09-20-2020 take 6.25 mg by mout h twice daily Carvedilol Active 6.25 MG PO TWICE A DAY September 20, 2020 12:00am Start: 02-14-2020 Carvedilol 12. 5 MG Oral Tablet Quantity: 60 Refills: 0 Ordered: 18-Nov-2020 DO Start : 14-Feb-2020 Active Start: 02-14-2020 Coreg 12.5 mg oral tablet Dose : 12.5 mg = 1 tab(s), Oral, BID, # 60 tab(s), 11 Refill(s), Pharmacy: [facility], 160, cm, 02/14/20 9:21:00 EST, Height, kg, 02/14/20 9:21:00 EST, Dosing Weight Start Date: 02/14/20 Status: Ordered Start: 11-28-2019 End: 08-03-2020 take 25 mg by mouth twice daily Carvedilol Discontinued 25 MG PO TWICE A DAY 60 November 28, 2019 12:00am August 03, 2020 1:15pm Start: 05-04-2019 End: 11-28-2019 take 12.5 mg by mouth twice daily Carvedilol Discontinued 12.5 MG PO TWICE A DAY May 04, 2019 1:00am November 28, 2019 10:52am cefdinir 300 mg oral capsule (8 sources) Cephalosporin Antibacterial Start: 08-16-2024 End: 08-23-2024 cefdinir 300 mg oral capsule Dose : 300 mg = 1 cap(s), Oral, q24h, X 7 day(s), # 7 cap(s), 0 Refill(s), 08/23/24 2:39:00 PM EDT, Pharmacy: [facility] [place] - [id number], 155, cm, 08/16/24 11:12:00 EDT, Height, 111, kg, 08/16/24 11:12:00 EDT, Dosing Weight Start Date: 08/16/24 Stop Date: 08/23/24 Status: Ordered Quantity: 7.0 Unit: cap(s) Repeat number: 1 Start: 07-15-2022 End: 07-23-2022 Cefdinir Discontinued 300 MG PO Q48H 2 July 15, 2022 12:00am July 23, 2022 4:00pm Take cefdinir after hemodialysis on days of dialysis. cholecalciferol 0.05 mg oral capsule (11 sources) Vitamin D Start: 01-13-2023 take 50 ug by mouth once daily Cholecalciferol (Vitamin D3) Active 50 MCG PO DAILY January 13, 2023 12:00am Start: 07-12-2022 End: 12-10-2022 Cholecalciferol (Vitamin D3) Discontinued 50 MCG DAILY July 12, 2022 12:00am December 10, 2022 3:31pm codeine phosphate 1.5 mg/ml / guaiFENesin 45 mg/ml oral solution (2 sources) Opioid Agonist Start: 12-15-2021 End: 2021 take 1 dose by mouth every six hours as needed for cough codeine-guaifenesin 7.5 mg-225 mg/5 mL oral liquid Dose = 5 mL, Oral, q6h, PRN as needed for sore throat and cough, X 7 day(s), # 120 mL, 0 Refill(s), 97.4 Start Date: 12/15/21 Stop Date: 12/22/21 Status: Ordered diclofenac sodium 0.01 mg/mg topical gel (17 sources) Nonsteroidal Anti-inflammatory Drug Start: 08-28-2021 diclofenac 1% topical gel Apply 1 toby, Topical, QID, # 100 gram(s), 3 Refill(s), Pharmacy: [facility], Gel, 161.3, cm, 07/31/21 7:54:00 EDT, Height, 98.5, kg, 07/31/21 7:54:00 EDT, Dosing Weight Start Date: 08/28/21 Status: Ordered Start: 07-31-2021 diclofenac 1% topical gel Apply 1 toby, Topical, QID, # 100 gram(s), 0 Refill(s), Pharmacy: [facility], Gel, 161.3, cm, 07/31/21 7:54:00 EDT, Height, 98.5 Start Date: 07/31/21 Status: Ordered DME MISCellaneous (20 sources) Start: 07-20-2024 DME MISCellane ous See Instructions, Discontinue home o2--patient no longer needing. ., # 1 EA, 0 Refill(s), 108.6 Start Date: 07/20/24 Status: Ordered Quantity: 1.0 Unit: EA Repeat number: 1 Start: 05-23-2024 DME MISCellane ous See Instructions, One touch Ultra2 glucometer. Dispense #1. 0 refills. Use as directed to check blood sugar., # 1 EA, 0 Refill(s), Pharmacy: [place] [id number], 155, cm, 05/03/24 15:44:00 EST, Height, 107.4, kg, 05/03/24 15:44:00 EST, Dosing Weight Start Date: 05/23/24 Status: Ordered Quantity: 1.0 Unit: EA Repeat number: 1 Start: 03-14-2024 DME MISCellane ous See Instructions, Freestyle Glucometer. Use to check blood sugars 4 times daily with insulin administrations, # 1 EA, 0 Refill(s), Pharmacy: [facility] [id number], 158, cm, 02/10/24 8:25:00 EST, Height, 104.5, kg, 02/10/24 8:24:00 EST, Dosing Weight Start Date: 03/14/24 Status: Ordered Quantity: 1.0 Unit: EA Repeat number: 1 Start: 09-29-2023 DME MISCellane ous See Instructions, One Touch Verio Glucometer. Use daily to monitor blood sugars, # 1 EA, 0 Refill(s), Pharmacy: [facility] [id number], 159, cm, 06/03/23 13:51:00 EST, Height, 14.54, kg, 06/08/23 16:20:00 EDT, Dosing Weight Start Date: 09/29/23 Status: Ordered Quantity: 1.0 Unit: EA Repeat number: 1 Start: 09-29-2023 DME MISCellane ous See Instructions, One Touch Verio Glucometer. Use daily to monitor blood sugars, # 1 EA, 0 Refill(s), Pharmacy: [facility] [id number], 159, cm, 06/03/23 13:51:00 EST, Height, 14.54, kg, 06/08/23 16:20:00 EDT, Dosing Weight Start Date: 09/29/23 Status: Ordered Start: 05-20-2023 DME MISCellane ous See Instructions, One rollator. DX stroke, # 1 EA, 0 Refill(s) Start Date: 05/20/23 Status: Ordered Quantity: 1.0 Unit: EA Repeat number: 1 Start: 05-20-2023 DME MISCellane ous See Instructions, One rollator. DX stroke, # 1 EA, 0 Refill(s) Start Date: 05/20/23 Status: Ordered Start: 10-04-2020 DME MISCellane ous See Instructions, 2 pairs of compression stockings. Dx CHF., # 1 EA, 0 Refill(s), 99.2 Start Date: 10/04/20 Status: Ordered docusate sodium 100 mg oral capsule (20 sources) Start: 08-09-2020 DOK 100 mg ora l capsule Dose : 100 mg = 1 cap(s), Oral, BID, PRN as needed for constipation, # 180 cap(s), 3 Refill(s), Pharmacy: [facility], 160, cm, 08/09/20 9:31:00 EDT, Height, kg, 08/09/20 9:31:00 EDT, Dosing Weight Start Date: 08/09/20 Status: Ordered escitalopram 20 mg oral tablet (20 sources) Serotonin Reuptake Inhibitor Start: 08-13-2021 End: 01-08-2023 Lexapro 20 mg oral tablet Dose : 20 mg = 1 tab(s), Oral, qDay, # 30 tab(s), 11 Refill(s), Pharmacy: [facility] [id number], 160, cm, 12/13/21 17:24:00 EDT, Height, kg, 12/14/21 15:31:00 EDT, Dosing Weight Start Date: 01/13/22 Stop Date: 01/08/23 Status: Ordered Start: 07-31-2021 Lexapro 10 mg oral tablet Dose : 10 mg = 1 tab(s), Oral, qDay, # 30 tab(s), 5 Refill(s), Pharmacy: [facility], 161.3, cm, 07/31/21 7:54:00 EDT, Height Start Date: 07/31/21 Status: Ordered Start: 10-11-2020 End: 10-06-2021 Lexapro 5 mg oral tablet Dos e : 5 mg = 1 tab(s), Oral, qDay, # 30 tab(s), 11 Refill(s), Pharmacy: [facility] 39, 168, cm, 10/11/20 14:11:00 EDT, Height, kg, 10/11/20 14:11:00 EDT, Dosing Weight Start Date: 10/11/20 Stop Date: 10/06/21 Status: Ordered Start: 08-09-2020 Escitalopram O xalate 5 MG Oral Tablet Quantity: 30 Refills: 0 Ordered: 18-Nov-2020 DO Start : 09-Aug-2020 Active ezetimibe 10 mg oral tablet (20 sources) Dietary Cholesterol Absorption Inhibitor Start: 11-05-2023 Zetia 10 mg oral tablet Dose : 10 mg = 1 tab(s), Oral, qDay, # 90 tab(s), 3 Refill(s), Pharmacy: [facility] [id number], 155, cm, 10/27/23 15:18:00 EDT, Height, kg, 10/27/23 15:18:00 EDT, Dosing Weight Start Date: 11/05/23 Status: Ordered Quantity: 90.0 Unit: tab(s) Repeat number: 4 Start: 01-05-2023 Zetia 10 mg or al tablet Dose : 10 mg = 1 tab(s), Oral, qDay, # 90 tab(s), 3 Refill(s), Pharmacy: [facility] [id number], 157.5, cm, 12/30/22 14:30:00 EDT, Height, kg, 12/30/22 14:30:00 EDT, Dosing Weight Start Date: 01/05/23 Status: Ordered Start: 07-12-2022 End: 12-10-2022 Ezetimibe Discontinued 10 MG DAILY July 12, 2022 12:00am December 10, 2022 3:31pm Start: 02-12-2022 Zetia 10 mg or al tablet Dose : 10 mg = 1 tab(s), Oral, qDay, # 90 tab(s), 3 Refill(s), Pharmacy: [facility] [id number], 155, cm, 02/12/22 16:25:00 EST, Height Start Date: 02/12/22 Status: Ordered famotidine 10 mg oral tablet (11 sources) Histamine-2 Receptor Antagonist Start: 03-03-2023 Famotidine (Acid Controller) 10 mg tablet Active 20 MG PO DAILY March 03, 2023 1:00am Start: 12-15-2021 End: 2021 Pepcid 20 mg oral tablet Dos e : 20 mg = 1 tab(s), Oral, qDay, # 7 tab(s), 0 Refill(s) Start Date: 12/15/21 Stop Date: 12/22/21 Status: Ordered fenofibrate 145 mg oral tablet (1 source) Peroxisome Proliferator Receptor alpha Agonist take 1 tablet by mouth once daily fenofibrate nanocrystallized (TRICOR) 145 mg tablet Take 145 mg by mouth once daily. 0 Active ferrous sulfate 325 mg oral tablet (5 sources) Start: 04-01-19 IRON (ferrous sulfate 325 mg) 65 mg oral tablet Dose : 325 mg = 1 tab(s), Oral, qDay, Take with food., # 90 tab(s), 3 Refill(s), Pharmacy: [facility], 160, cm, 03/19/21 13:15:00 EST, Height, kg, 03/19/21 13:15:00 EST, Dosing Weight Start Date: 04/01/21 Status: Ordered Start: 02-14-2020 End: 11-12-2021 IRON (ferrous sulfate 325 mg ) 65 mg oral tablet Dose : 325 mg = 1 tab(s), Oral, qDay, Take with food., # 30 tab(s), 11 Refill(s), Pharmacy: [facility], 160, cm, 02/14/20 9:21:00 EST, Height, kg, 02/14/20 9:21:00 EST, Dosing Weight Start Date: 02/14/20 Stop Date: 02/08/21 Status: Ordered FREESTYLE LITE METER monitoring kit (1 source) Start: 12-24-2011 FREESTYLE LITE METER monitoring kit gabapentin 100 mg oral capsule (20 sources) Anti-epileptic Agent Start: 05-16-2024 End: 11-12-2024 take 1 capsule by mouth twice daily gabapentin 100 mg oral capsule Dose : 100 mg = 1 cap(s), Oral, BID, Corrected dose to 100 mg bid, # 60 cap(s), 5 Refill(s), Pharmacy: [facility] [id number], Leg pain, 155, cm, 05/03/24 15:44:00 EST, Height, 107.4, kg, 05/03/24 15:44:00 EST, Dosing Weight Start Date: 05/16/24 Stop Date: 11/12/24 Status: Ordered Quantity: 60.0 Unit: cap(s) Repeat number: 6 Indications: Pain in leg, unspecified; Start: 12-28-2023 gabapentin 300 mg oral capsule Dose : 300 mg = 1 cap(s), Oral, TID, # 90 cap(s), 0 Refill(s), 105.7 Start Date: 12/28/23 Status: Ordered Start: 12-10-2022 take 300 mg by mouth three times daily Gabapentin Active 300 MG PO THREE TIMES A DAY December 10, 2022 12:00am Start: 10-07-2021 End: 12-19-2023 gabapentin 100 mg oral capsu le Dose : 100 mg = 1 cap(s), Oral, BID, # 60 cap(s), 5 Refill(s), Pharmacy: [facility] [id number], Leg pain, 159, cm, 06/03/23 13:51:00 EST, Height, 14.54, kg, 06/08/23 16:20:00 EDT, Dosing Weight Start Date: 06/22/23 Stop Date: 12/19/23 Status: Ordered Start: 03-19-2021 End: 09-15-2021 gabapentin 100 mg oral capsu le Dose : 100 mg = 1 cap(s), Oral, TID, # 90 cap(s), 5 Refill(s), Pharmacy: [place] [facility] [id number], Leg pain, 160, cm, 03/19/21 13:15:00 EST, Height, 104.4, kg, 03/19/21 13:15:00 EST, Dosing Weight Start Date: 03/19/21 Stop Date: 09/15/21 Status: Ordered Start: 11-14-2020 End: 12-14-2020 gabapentin 100 mg oral capsu le Dose : 100 mg = 1 cap(s), Oral, TID, # 90 cap(s), 0 Refill(s), Pharmacy: [place] [id number], Leg pain, 168, cm, 10/11/20 14:11:00 EDT, Height, 98.5, kg, 10/11/20 14:11:00 EDT, Dosing Weight Start Date: 11/14/20 Stop Date: 12/14/20 Status: Ordered Start: 10-11-2020 Gabapentin 100 MG Oral Capsule Quantity: 90 Refills: 0 Ordered: 13-Dec-2020 DO Start : 11-Oct-2020 Active Start: 05-20-2018 End: 09-24-2018 take 100 mg by mouth three times daily at mealtime Gabapentin Discontinued 100 MG PO 3 TIMES DAILY WITH MEALS May 20, 2018 10:40pm September 24, 2018 10:25am Start: 01-09-2018 End: 06-04-2018 take 1 tablet by mouth three times daily Gabapentin (Gralise) 600 MG Tab.Er.24h Discontinued 600 MG PO THREE TIMES A DAY January 09, 2018 12:00am June 04, 2018 1:03pm 12 hr guaiFENesin 600 mg extended release oral tablet (1 source) Start: 04-15-2022 End: 04-22-2022 guaiFENesin 600 mg oral tablet, extended release Dose : 600 mg = 1 tab(s), Oral, q12h, PRN Cough, X 7 day(s), # 14 tab(s), 0 Refill(s), 04/22/22 14:19:00 EST, Pharmacy: [facility] [id number], 160, cm, 04/15/22 13:44:00 EST, Height Start Date: 04/15/22 Stop Date: 04/22/22 Status: Ordered HumaLOG KwikPen 100 units/mL injectable PEN (2 sources) Start: 12-28-2020 HumaLOG KwikPe n 100 units/mL injectable PEN Dose : 5 unit(s) =, Subcutaneous, BIDAC, # 15 mL, 6 Refill(s), Pharmacy: [facility], 160, cm, 11/29/20 9:08:00 EDT, Height, kg, 11/29/20 9:08:00 EDT, Dosing Weight Start Date: 12/28/20 Status: Ordered hydrALAZINE hydrochloride 100 mg oral tablet (20 sources) Arteriolar Vasodilator Start: 03-28-2024 hydrALAZINE 100 mg oral tablet Dose : 100 mg = 1 tab(s), Oral, TID, # 270 tab(s), 3 Refill(s), Pharmacy: [facility] [address], 158, cm, 02/10/24 8:25:00 EST, Height, kg, 02/10/24 8:24:00 EST, Dosing Weight Start Date: 03/28/24 Status: Ordered Quantity: 270.0 Unit: tab(s) Repeat number: 4 Start: 04-27-2023 hydrALAZINE 10 0 mg oral tablet Dose : 100 mg = 1 tab(s), Oral, TID, # 270 tab(s), 3 Refill(s), Pharmacy: [facility] [address], 62, cm, 03/10/23 16:45:00 EST, Height, kg, 03/10/23 16:37:00 EST, Dosing Weight Start Date: 04/27/23 Status: Ordered Start: 12-15-2021 End: 12-15-2021 hydrALAZINE Start: 12/15/21 16:00:00 EDT, Dose = 100 mg, = 2 tab(s), Oral, 12/13/21 19:48:00 EDT Start Date: 12/15/21 Stop Date: 12/15/21 Status: Completed Start: 02-14-2020 hydrALAZINE HC l - 100 MG Oral Tablet Quantity: 90 Refills: 0 Ordered: 13-Dec-2020 DO Start : 14-Feb-2020 Active Start: 02-14-2020 End: 04-25-2023 take 100 mg by mouth three times daily Hydralazine Discontinued 100 MG PO THREE TIMES A DAY September 20, 2020 12:00am December 10, 2022 3:40pm Start: 05-04-2019 End: 08-03-2020 take 100 mg by mouth twice daily Hydralazine Discontinued 100 MG PO TWICE A DAY May 04, 2019 1:00am August 03, 2020 1:14pm Start: 05-20-2018 End: 05-20-2018 take 25 mg by mouth three times daily Hydralazine Discontinued 25 MG PO THREE TIMES A DAY May 20, 2018 1:00am May 20, 2018 10:40pm 3 ml insulin aspart, human 100 unt/ml pen injector (20 sources) Insulin Analog Start: 12-28-2023 inject 1 dose by subcutaneous injection before lunch NovoLOG FlexPen 100 units/mL injectable solution Dose : 5 unit(s) =, Subcutaneous, BIDAC, before lunch and dinner.If blood sugar Start Date: 12/28/23 Status: Ordered Repeat number: 1 Start: 09-11-2021 NovoLOG FlexPe n 100 units/mL injectable solution Dose : 5 unit(s) =, Subcutaneous, BIDAC, # 1 mL, 11 Refill(s), Pharmacy: [facility], 159.8, cm, 09/02/21 13:54:00 EDT, Height Start Date: 09/11/21 Status: Ordered Start: 03-21-2021 Insulin Aspart U-100 (Novolog Flexpen U-100 Insulin) 100 unit/mL (3 mL) insulin pen Active 5 UNIT SC TWICE A DAY March 21, 2021 10:55am Start: 01-25-2021 End: 03-21-2021 Insulin Aspart U-100 (Novolo g Flexpen U-100 Insulin) 100 unit/mL (3 mL) insulin pen Discontinued 10 UNIT SC 3 TIMES DAILY WITH MEALS 0 January 25, 2021 4:22pm March 21, 2021 10:58am Start: 01-23-2021 End: 01-25-2021 Insulin Aspart U-100 (Novolo g Flexpen U-100 Insulin) 100 unit/mL (3 mL) insulin pen Discontinued 20 UNIT SC 3 TIMES DAILY WITH MEALS 0 January 23, 2021 3:41pm January 25, 2021 4:22pm Start: 09-20-2020 End: 01-23-2021 Insulin Aspart U-100 (Novolo g Flexpen U-100 Insulin) 100 unit/mL (3 mL) insulin pen Discontinued 5 UNIT SC WITH LUNCH September 20, 2020 12:00am January 23, 2021 3:26pm 3 ml insulin glargine 300 unt/ml pen injector (20 sources) Insulin Analog Start: 01-12-2024 inject 1 dose by subcutaneous injection once daily Toujeo Max SoloStar 300 units/mL subcutaneous solution Dose : 20 unit(s) =, Subcutaneous, qDay, # 6 mL, 11 Refill(s), Pharmacy: [facility] [address], 158.5, cm, 01/12/24 15:01:00 EDT, Height, kg, 01/12/24 15:01:00 EDT, Dosing Weight Start Date: 01/12/24 Status: Ordered Quantity: 6.0 Unit: mL Repeat number: 12 Start: 06-03-2023 inject 1 dose by sub cutaneous injection once daily Toujeo Max SoloStar 300 units/mL subcutaneous solution Dose : 20 unit(s) =, Subcutaneous, qDay, # 6 mL, 11 Refill(s), Pharmacy: [facility] [address], 159, cm, 06/03/23 13:51:00 EST, Height, kg, 06/03/23 13:51:00 EST, Dosing Weight Start Date: 06/03/23 Status: Ordered Start: 04-16-2023 inject 1 dose by sub cutaneous injection once daily Toujeo Max SoloStar 300 units/mL subcutaneous solution Dose : 20 unit(s) =, Subcutaneous, qDay, sent in absence of PCP, # 6 mL, 0 Refill(s), Pharmacy: [facility] [address], 62, cm, 03/10/23 16:45:00 EST, Height, kg, 03/10/23 16:37:00 EST, Dosing Weight Start Date: 04/16/23 Status: Ordered Start: 12-02-2022 End: 04-01-2023 inject 1 dose by subcutaneous injection once daily Toujeo Max SoloStar 300 units/mL subcutaneous solution Dose : 20 unit(s) =, Subcutaneous, qDay, # 3 mL, 3 Refill(s), Pharmacy: [id number], 154.9, cm, 11/18/22 8:18:00 EDT, Height, kg, 11/18/22 8:18:00 EDT, Dosing Weight Start Date: 12/02/22 Stop Date: 04/01/23 Status: Ordered Start: 09-03-2022 End: 10-03-2022 inject 1 dose by subcutaneous injection once daily Toujeo Max SoloStar 300 units/mL subcutaneous solution Dose : 20 unit(s) =, Subcutaneous, qDay, sent in absence of PCP, # 3 mL, 0 Refill(s), Pharmacy: [id number], 155, cm, 08/28/22 23:41:00 EDT, Height, kg, 08/28/22 23:41:00 EDT, Dosing Weight Start Date: 09/03/22 Stop Date: 10/03/22 Status: Ordered Start: 09-23-2021 End: 03-22-2022 inject 1 dose by subcutaneous injection once daily Toujeo Max SoloStar 300 units/mL subcutaneous solution Dose : 20 unit(s) =, Subcutaneous, qDay, # 3 mL, 1 Refill(s), Pharmacy: [facility] [id number], 155, cm, 11/04/21 14:50:00 EDT, Height, kg, 11/04/21 14:50:00 EDT, Dosing Weight Start Date: 11/15/21 Stop Date: 01/14/22 Status: Ordered Start: 07-08-2021 End: 08-07-2021 inject 1 dose by subcutaneous injection once daily Toujeo Max SoloStar 300 units/mL subcutaneous solution Dose : 22 unit(s) =, Subcutaneous, qDay, in lieu of pcp absence; rotate injection sites, # 3 mL, 0 Refill(s), Pharmacy: [facility], 160, cm, 03/19/21 13:15:00 EST, Height, kg, 03/19/21 13:15:00 EST, Dosing Weight Start Date: 07/08/21 Stop Date: 08/07/21 Status: Ordered Start: 02-13-2021 Toujeo SoloSta r 300 UNIT/ML Subcutaneous Solution Pen-injector Quantity: 2 Refills: 0 Ordered: 13-Feb-2021 DO Start : 13-Feb-2021 Active Start: 01-23-2021 End: 03-21-2021 Insulin Glargine U-300 Conc (Toujeo Solostar U-300 Insulin) 300 unit/mL (1.5 mL) insulin pen Discontinued 20 UNIT SC WITH BREAKFAST 0 January 23, 2021 3:41pm March 21, 2021 10:58am Start: 08-03-2020 End: 01-23-2021 Insulin Glargine U-300 Conc (Toujeo Solostar U-300 Insulin) 300 unit/mL (1.5 mL) insulin pen Discontinued 18 UNIT SC WITH BREAKFAST August 03, 2020 1:17pm January 23, 2021 3:41pm Start: 05-26-2019 End: 08-03-2020 inject 12 [IU] by subcutaneous injection in the morning, then inject 10 [IU] by subcutaneous injection at bedtime Insulin Glargine U-300 Conc Discontinued 0 SC AT BEDTIME May 26, 2019 10:26am August 03, 2020 1:19pm 12 units AM, 10 units PM subcut at bedtime; Start: 05-04-2019 End: 05-26-2019 inject 300 [IU] by subcutaneous injection at bedtime Insulin Glargine U-300 Conc Discontinued 300 UNIT SQ AT BEDTIME May 04, 2019 1:00am May 26, 2019 10:27am Start: 05-20-2018 End: 05-20-2018 Insulin Glargine (Lantus Daria ostar U-100 Insulin) 100 UNITS/ML Pen Discontinued 10 UNITS SC TWICE A DAY May 20, 2018 1:00am May 20, 2018 10:40pm Start: 01-13-2018 End: 05-20-2018 Insulin Glargine (Lantus Daria ostar U-100 Insulin) 100 UNITS/ML Pen Discontinued 5 UNITS SC TWICE A DAY January 13, 2018 12:00am May 20, 2018 1:56pm Start: 12-26-2011 LANTUS SOLOSTA R 100 unit/mL (3 mL) InPn Insulin Glargine U-300 Conc (Toujeo Solostar U-300 Insulin) 300 unit/mL (1.5 mL) insulin pen (3 sources) Start: 03-21-2021 Insulin Glargi ne U-300 Conc (Toujeo Solostar U-300 Insulin) 300 unit/mL (1.5 mL) insulin pen Active 20 UNIT SC WITH BREAKFAST March 21, 2021 10:55am Start: 03-21-2021 Insulin Glargi ne U-300 Conc (Toujeo Solostar U-300 Insulin) 300 unit/mL (1.5 mL) insulin pen Active 20 UNIT SC WITH BREAKFAST March 21, 2021 9:55am 3 ml insulin lispro 100 unt/ml pen injector (20 sources) Insulin Analog Start: 01-12-2024 HumaLOG KwikPe n 100 units/mL injectable PEN Dose : 5 unit(s) =, Subcutaneous, BIDAC, # 1 EA, 3 Refill(s), 3 mL PEN, Pharmacy: [facility] [id number], 158.5, cm, 01/12/24 15:01:00 EDT, Height, kg, 01/12/24 15:01:00 EDT, Dosing Weight Start Date: 01/12/24 Status: Ordered Start: 12-09-2022 inject 1 dose by sub cutaneous injection at lunch HumaLOG KwikPen 100 units/mL injectable PEN Dose : 5 unit(s) =, Subcutaneous, with lunch, # 1 EA, 3 Refill(s), 3 mL PEN, [facility] [id number], 154.9, cm, 11/18/22 8:18:00 EDT, Height, kg, 11/18/22 8:18:00 EDT, Dosing Weight Start Date: 12/09/22 Status: Ordered Start: 06-25-2022 HumaLOG KwikPe n 100 units/mL injectable PEN Dose : 5 unit(s) =, Subcutaneous, BIDAC, # 1 EA, 3 Refill(s), 3 mL PEN, [facility] [id number], 160, cm, 05/28/22 14:54:00 EST, Height Start Date: 06/25/22 Status: Ordered Start: 12-25-2021 HumaLOG KwikPe n 100 units/mL injectable PEN Dose : 5 unit(s) =, Subcutaneous, BIDAC, rotate injection sites, # 9 mL, 3 Refill(s), Pharmacy: [facility] [id number], 160, cm, 12/13/21 17:24:00 EDT, Height, kg, 12/14/21 15:31:00 EDT, Dosing Weight Start Date: 12/25/21 Status: Ordered Start: 10-01-2021 HumaLOG KwikPe n 100 units/mL injectable PEN Dose : 5 unit(s) =, Subcutaneous, BIDAC, # 15 mL, 6 Refill(s), Pharmacy: [facility], 159.8, cm, 09/02/21 13:54:00 EDT, Height, kg, 09/02/21 13:54:00 EDT, Dosing Weight Start Date: 10/01/21 Status: Ordered Start: 12-28-2020 HumaLOG KwikPe n 100 units/mL injectable PEN Dose : 5 unit(s) =, Subcutaneous, BIDAC, # 15 mL, 6 Refill(s), Pharmacy: [facility], 160, cm, 11/29/20 9:08:00 EDT, Height, kg, 11/29/20 9:08:00 EDT, Dosing Weight Start Date: 12/28/20 Status: Ordered Start: 05-18-2018 End: 05-20-2018 Insulin Lispro (Humalog Kwik pen Insulin) 100 UNIT/ML Insuln.Pen Discontinued 0 UNIT SQ AC, HS, & 3am May 20, 2018 1:00am May 20, 2018 10:40pm Start: 01-09-2018 End: 01-13-2018 Insulin Lispro (Humalog Kwik pen) 100 UNIT/ML Insuln.Pen Discontinued 0 UNITS SQ THREE TIMES A DAY January 09, 2018 12:00am January 13, 2018 11:41am sliding scale Start: 12-24-2011 HUMALOG KWIKPE N 100 unit/mL InPn lactobacillus acidophilus [id number] unt oral capsule (2 sources) Start: 08-09-2020 take 1 capsule by mouth once daily Acidophilus Probiotic Blend oral capsule Dose = 1 cap(s), Oral, qDay, # 100 cap(s), 3 Refill(s), Pharmacy: [facility] 39, 160, cm, 08/09/20 9:31:00 EDT, Height, kg, 08/09/20 9:31:00 EDT, Dosing Weight Start Date: 08/09/20 Status: Ordered melatonin 5 mg oral tablet (20 sources) Start: 09-02-2021 End: 05-05-2022 melatonin 10 mg oral tablet Dose : 10 mg = 1 tab(s), Oral, qHS, PRN as needed for insomnia, X 30 day(s), # 30 tab(s), 1 Refill(s), 05/05/22 17:37:00 EST, Pharmacy: [facility] [id number], 155, cm, 02/25/22 9:38:00 EST, Height, kg, 02/25/22 9:38:00 EST, Dosing Weight Start Date: 03/06/22 Stop Date: 05/05/22 Status: Ordered Start: 08-24-2018 melatonin 5 mg oral tablet Dose : 5 mg = 1 tab(s), Oral, qHS, PRN as needed for insomnia, # 60 tab(s), 0 Refill(s) Start Date: 07/17/22 Status: Ordered Quantity: 60.0 Unit: tab(s) Repeat number: 1 metFORMIN hydrochloride 500 mg oral tablet (1 source) Biguanide take 500 mg by mouth four times daily METFORMIN HCL (METFORMIN ORAL) Take 500 mg by mouth four times daily. 0 Active 24 hr metoprolol succinate 100 mg extended release oral tablet (3 sources) beta-Adrenergic Ángela Start: 12-10-2022 take 100 mg by mouth once daily Metoprolol Succinate Active 100 MG PO DAILY December 10, 2022 12:00am take 1 tablet by mouth twice celio ly metoprolol tartrate, short acting, 50 mg tablet Take 50 mg by mouth twice daily. 0 Active Nephro-Todd oral tablet (20 sources) Start: 10-29-2021 take 1 tablet by mouth once daily Nephro-Todd oral tablet Dose = 1 tab(s), Oral, qDay, # 90 tab(s), 0 Refill(s) Start Date: 10/29/21 Status: Ordered Quantity: 90.0 Unit: tab(s) Repeat number: 1 Start: 10-29-2021 take 1 tablet by castro th once daily Nephro-Todd oral tablet Dose = 1 tab(s), Oral, qDay, # 90 tab(s), 0 Refill(s) Start Date: 10/29/21 Status: Ordered nystatin 100 unt/mg topical powder (20 sources) Polyene Antifungal Start: 12-28-2023 nystatin 10 0,000 units/g topical powder Apply 1 toby, Topical, BID, # 56.7 gram(s), 0 Refill(s), Powder, 105.7 Start Date: 12/28/23 Status: Ordered Quantity: 56.7 Unit: g Repeat number: 1 Start: 01-25-2021 End: 07-12-2022 Nystatin ([facility]) 100,000 un it/gram Powder Discontinued 1 APPLIC TOPICAL TWICE A DAY 0 January 25, 2021 12:00am July 12, 2022 3:34pm Start: 05-20-2018 End: 09-24-2018 Nystatin Discontinued 1 APPL IC TOPICAL TWICE DAILY NEEDED July 15, 2018 3:15pm September 24, 2018 10:25am omeprazole 40 mg oral tablet (1 source) Proton Pump Inhibitor take 40 mg by mouth once daily OMEPRAZOLE (PRILOSEC ORAL) Take 40 mg by mouth once daily. 0 Active ondansetron 4 mg disintegrating oral tablet (20 sources) Serotonin-3 Receptor Antagonist Start: 08-01-19 End: 08-15-19 ondansetron 4 mg oral tablet, disintegrating Dose : 4 mg = 1 tab(s), Oral, q6h, PRN Nausea/Vomiting, # 20 tab(s), 0 Refill(s), 08/14/24 4:42:00 AM EDT Start Date: 07/31/24 Stop Date: 08/14/24 Status: Ordered Quantity: 20.0 Unit: tab(s) Repeat number: 1 Start: 08-29-2022 End: 09-01-2022 ondansetron 4 mg oral tablet , disintegrating Dose : 4 mg = 1 tab(s), Oral, q8h, X 3 day(s), # 9 tab(s), 0 Refill(s), 09/01/22 1:18:00 EDT Start Date: 08/29/22 Stop Date: 09/01/22 Status: Ordered Start: 12-11-2021 End: 12-16-2021 ondansetron 4 mg oral tablet , disintegrating Dose : 4 mg = 1 tab(s), Oral, q8h, PRN as needed for nausea/vomiting, X 5 day(s), # 15 tab(s), 0 Refill(s), 12/16/21 13:18:00 EDT, Pharmacy: [facility] [place] [id number], Nausea and vomiting in adult, 155, cm, 12/11/21 12:46:00 EDT, Height Start Date: 12/11/21 Stop Date: 12/16/21 Status: Ordered Start: 07-16-2018 ondansetron 4 mg oral tablet Dose : 4 mg = 1 tab(s), Oral, q8h, PRN Nausea, 0 Refill(s) Start Date: 07/16/18 Status: Ordered Start: 05-20-2018 End: 06-04-2018 take 4 mg by mouth every eight hours as needed Ondansetron Hcl (Pf) Discontinued 4 MG PO EVERY 8 HOURS NEEDED May 20, 2018 10:40pm June 04, 2018 1:02pm Start: 05-20-2018 End: 05-20-2018 take 4 mg intravenously every eight hours as needed Ondansetron Hcl (Pf) Discontinued 4 MG IV EVERY 8 HOURS NEEDED May 20, 2018 1:00am May 20, 2018 10:40pm oxyCODONE hydrochloride 5 mg oral tablet (3 sources) Opioid Agonist Start: 04-27-2023 take 5 mg by mouth every eight hours Oxycodone Active 5 MG PO Q8H 9 April 27, 2023 Pen needles 5 mm (11 sources) Start: 12-21-2022 Pen needles 5 mm See Instructions, qs for 1 month supply, # 1 EA, 11 Refill(s), Pharmacy: [facility] [id number], 154.9, cm, 11/18/22 8:18:00 EDT, Height, 101, kg, 11/18/22 8:18:00 EDT, Dosing Weight Start Date: 12/21/22 Status: Ordered Quantity: 1.0 Unit: EA Repeat number: 12 Start: 12-21-2022 Pen needles 5 mm See Instructions, qs for 1 month supply, # 1 EA, 11 Refill(s), Pharmacy: [place] [id number], 154.9, cm, 11/18/22 8:18:00 EDT, Height, 101, kg, 11/18/22 8:18:00 EDT, Dosing Weight Start Date: 12/21/22 Status: Ordered predniSONE 10 mg oral tablet (17 sources) Start: 01-20-2023 End: 01-26-2023 prednisone 10mg tab (TAPER) Taper 55-69-58-30-20-10 x 1 day, Oral, qAM, # 21 tab(s), 0 Refill(s), Pharmacy: [place] [id number], Poison sekou, 157.5, cm, 01/20/23 14:38:00 EDT, Height, kg, 01/20/23 14:38:00 EDT, Dosing Weight Start Date: 01/20/23 Stop Date: 01/26/23 Status: Ordered Start: 01-13-2018 End: 05-20-2018 take 10 mg by mouth once daily Prednisone Discontinued 10 MG PO DAILY May 18, 2018 10:03pm May 20, 2018 1:56pm 12 hr ranolazine 500 mg extended release oral tablet (6 sources) Anti-anginal Start: 01-13-2023 take 500 mg by mouth once daily Ranolazine Active 500 MG PO DAILY January 13, 2023 12:00am Start: 08-11-2022 Ranexa 500 mg oral tablet, extended release Dose : 500 mg = 1 tab(s), Oral, BID, # 180 tab(s), 0 Refill(s), Pharmacy: [facility] [place] [id number], 155, cm, 08/11/22 6:21:00 EDT, Height Start Date: 08/11/22 Status: Ordered Intervale Caps (4 sources) Start: 12-28-2023 take 1 capsule by mo ut once daily Alok Caps Dose = 1 cap(s), Oral, qDay, 0 Refill(s) Start Date: 12/28/23 Status: Ordered Repeat number: 1 Start: 12-28-2023 take 1 capsule by mo uth once daily Intervale Caps Dose = 1 cap(s), Oral, qDay, 0 Refill(s) Start Date: 12/28/23 Status: Ordered torsemide 100 mg oral tablet (20 sources) Loop Diuretic Start: 08-16-2024 torsemide 100 mg oral tablet Dose : 50 mg = 0.5 tab(s), Oral, BID, # 30 tab(s), 5 Refill(s), Pharmacy: [facility] [id number], 155, cm, 08/16/24 11:12:00 EDT, Height, kg, 08/16/24 11:12:00 EDT, Dosing Weight Start Date: 08/16/24 Status: Ordered Quantity: 30.0 Unit: tab(s) Repeat number: 6 Start: 12-28-2023 torsemide 100 mg oral tablet Dose : 50 mg = 0.5 tab(s), Oral, BID, 0 Refill(s) Start Date: 12/28/23 Status: Ordered Repeat number: 1 Start: 09-11-2020 Torsemide 100 MG Oral Tablet Quantity: 90 Refills: 0 Ordered: 25-Jun-2021 DO Start : 11-Sep-2020 Active Start: 09-11-2020 End: 09-06-2021 torsemide 100 mg oral tablet Dose : 50 mg = 0.5 tab(s), Oral, BID, # 90 tab(s), 3 Refill(s), Pharmacy: [facility], 160, cm, 08/09/20 9:31:00 EDT, Height, kg, 08/09/20 9:31:00 EDT, Dosing Weight Start Date: 09/11/20 Stop Date: 09/06/21 Status: Ordered Start: 04-14-2019 take 50 mg by mouth twice marleny y Torsemide Active 50 MG PO TWICE A DAY April 14, 2019 1:00am Toujeo Max SoloStar 300 units/mL subcutaneous solution (2 sources) Start: 11-05-2020 End: 05-04-2021 inject 1 dose by subcutaneous injection once daily Toujeo Max SoloStar 300 units/mL subcutaneous solution Dose : 22 unit(s) =, Subcutaneous, qDay, rotate injection sites, # 7 mL, 1 Refill(s), Pharmacy: [facility], 168, cm, 10/11/20 14:11:00 EDT, Height, kg, 07/15/21 14:11:00 EDT, Dosing Weight Start Date: 11/05/20 Stop Date: 05/04/21 Status: Ordered triamcinolone acetonide 5 mg/ml topical cream (1 source) Corticosteroid Start: 08-16-2024 End: 08-30-2024 triamcinolone 0.5% topical cream Apply 1 toby, Topical, BID, X 14 day(s), # 30 gram(s), 0 Refill(s), Pharmacy: [facility], [place], [facility] - [id number], Cream, 155, cm, 08/16/24 11:12:00 EDT, Height, 111, kg, 08/16/24 11:12:00 EDT, Dosing Weight Start Date: 08/16/24 Stop Date: 08/30/24 Status: Ordered Quantity: 30.0 Unit: g Repeat number: 1 24 hr venlafaxine 75 mg extended release oral capsule (7 sources) Serotonin and Norepinephrine Reuptake Inhibitor Start: 12-30-2023 venlafaxine 75 mg oral capsule, extended release Dose : 75 mg = 1 cap(s), Oral, qDay, # 30 cap(s), 3 Refill(s), Pharmacy: [facility] [id number], 158, cm, 12/21/23 12:59:00 EDT, Height, kg, 12/21/23 12:59:00 EDT, Dosing Weight Start Date: 12/30/23 Status: Ordered Start: 09-07-2023 venlafaxine 75 mg oral capsule, extended release Dose : 75 mg = 1 cap(s), Oral, qDay, # 30 cap(s), 3 Refill(s), Pharmacy: [facility] [id number], 159, cm, 06/03/23 13:51:00 EST, Height, kg, 06/08/23 16:20:00 EDT, Dosing Weight Start Date: 09/07/23 Status: Ordered Start: 06-03-2023 venlafaxine 75 mg oral capsule, extended release Dose : 75 mg = 1 cap(s), Oral, qDay, # 30 cap(s), 3 Refill(s), Pharmacy: [facility], [place] - [id number], 159, cm, 06/03/23 13:51:00 EST, Height, kg, 06/03/23 13:51:00 EST, Dosing Weight Start Date: 06/03/23 Status: Ordered Start: 04-29-2023 venlafaxine 37 .5 mg oral capsule, extended release Dose : 37.5 mg = 1 cap(s), Oral, qDay, # 30 cap(s), 1 Refill(s), Pharmacy: [place] [id number], 157.5, cm, 04/29/23 14:30:00 EST, Height, kg, 04/29/23 14:30:00 EST, Dosing Weight Start Date: 04/29/23 Status: Ordered Vitamin D (20 sources) Start: 07-31-2021 Vitamin D Sh[place] min D, 0 Refill(s), 104.4 Start Date: 07/31/21 Status: Ordered Start: 01-09-2018 End: 05-20-2018 take 4000 [IU] by mouth twice daily Vitamin D Discontinued 4000 UNITS PO TWICE A DAY January 08, 2018 11:00pm May 20, 2018 12:56pm Start: 01-09-2018 End: 05-20-2018 take 4000 [IU] by mouth twice daily Vitamin D Discontinued 4000 UNITS PO TWICE A DAY January 09, 2018 12:00am May 20, 2018 1:56pm Vitamin D3 50 mcg (2000 intl units) oral capsule (20 sources) Start: 12-02-2023 Vitamin D3 50 mcg (2000 intl units) oral capsule Dose : 50 mcg = 1 tab(s), Oral, Daily, # 30 cap(s), 11 Refill(s), Pharmacy: [place] [id number], 155, cm, 10/27/23 15:18:00 EDT, Height, kg, 10/27/23 15:18:00 EDT, Dosing Weight Start Date: 12/02/23 Status: Ordered Quantity: 30.0 Unit: cap(s) Repeat number: 12 Start: 12-02-2023 Vitamin D3 50 mcg (2000 intl units) oral capsule Dose : 50 mcg = 1 tab(s), Oral, Daily, # 30 cap(s), 11 Refill(s), Pharmacy: [place] [id number], 155, cm, 10/27/23 15:18:00 EDT, Height, kg, 10/27/23 15:18:00 EDT, Dosing Weight Start Date: 12/02/23 Status: Ordered Start: 01-05-2023 Vitamin D3 50 mcg (2000 intl units) oral capsule Dose : 50 mcg = 1 tab(s), Oral, Daily, # 30 cap(s), 11 Refill(s), Pharmacy: [place] [id number], 157.5, cm, 12/30/22 14:30:00 EDT, Height, kg, 12/30/22 14:30:00 EDT, Dosing Weight Start Date: 01/05/23 Status: Ordered Start: 01-21-2022 Vitamin D3 50 mcg (2000 intl units) oral capsule Dose : 50 mcg = 1 tab(s), Oral, Daily, # 30 cap(s), 11 Refill(s), Pharmacy: [place] [id number], 159, cm, 01/21/22 15:18:00 EDT, Height, kg, 01/21/22 15:18:00 EDT, Dosing Weight Start Date: 01/21/22 Status: Ordered zolpidem tartrate 10 mg oral tablet (1 source) gamma-Aminobutyric Acid-ergic Agonist Start: 06-04-2012 take 1 tablet by mouth every twenty-four hours as needed zolpidem (AMBIEN) 10 mg Tab Take 1 tablet by mouth at bedtime as needed (for insomnia.). 30 tablet 0 06/04/2012 Active Completed/Discontinued Medications Medication Drug Class(es) Dates Sig (Normalized) Sig (Original) acetaminophen 325 mg / HYDROcodone bitartrate 5 mg oral tablet (20 sources) Opioid Agonist Start: 12-10-2022 take 1 tablet by mouth once daily Hydrocodone-Aceta minophen Active 1 TABLET PO DAILY December 10, 2022 12:00am Start: 03-28-2021 End: 05-01-2021 take 1 tablet by mouth every eight hours Hydrocodone-Acetaminophen Discontinued 1 TABLET PO Q8H 08 29March 28, 2021 May 01, 2021 10:49am Start: 11-27-2019 End: 08-03-2020 take 1 tablet by mouth every eight hours Hydrocodone-Acetaminophen Discontinued 1 TABLET PO Q8H November 27, 2019 12:00am August 03, 2020 1:18pm Start: 05-05-2019 End: 05-10-2019 take 1 tablet by mouth every six hours Hydrocodone-Acetaminophen Discontinued 1 - 2 TABLET PO EVERY 6 HOURS 20 May 05, 2019 May 10, 2019 1:08am Start: 04-04-2019 End: 04-07-2019 take 1 tablet by mouth every six hours as needed Hydrocodone-Acetaminophen Discontinued 1 TABLET PO EVERY 6 HOURS NEEDED 10 3 April 04, 2019 April 07, 2019 1:08am Start: 08-04-2018 End: 09-24-2018 take 1 tablet by mouth once daily Hydrocodone-Acetaminophen Discontinued 1 TABLET PO DAILY August 04, 2018 12:00am September 24, 2018 10:24am Start: 01-09-2018 End: 06-04-2018 take 1 tablet by mouth every twelve hours as needed Hydrocodone-Acetaminophen Discontinued 1 TABLET PO EVERY 12 HOURS NEEDED January 09, 2018 12:00am June 04, 2018 1:03pm albuterol 0.83 mg/ml inhalation solution (8 sources) beta2-Adrenergic Agonist Start: 05-20-2018 End: 06-04-2018 take 2.5 mg by inhalation every two hours as needed Albuterol Sulfate Discontinued 2.5 MG INHALATION EVERY 2 HOURS NEEDED May 20, 2018 1:00am June 04, 2018 1:00pm amoxicillin 875 mg / clavulanate 125 mg oral tablet (20 sources) Penicillin-class Antibacterial Start: 05-18-2018 End: 06-04-2018 take 1 tablet by mouth twice daily Amoxicillin-Pot Clavulanate (Augmentin) 1 EACH tablet Discontinued 1 TABLET PO TWICE A DAY May 20, 2018 10:40pm June 04, 2018 1:02pm atenolol 100 mg oral tablet (8 sources) beta-Adrenergic Ángela Start: 01-09-2018 End: 05-20-2018 take 1 tablet by mouth once daily Atenolol (Tenormin) 100 MG tablet Discontinued 100 MG PO DAILY January 09, 2018 12:00am May 20, 2018 2:19pm cloNIDine hydrochloride 0.1 mg oral tablet (8 sources) Central alpha-2 Adrenergic Agonist Start: 05-18-2018 End: 06-04-2018 take 0.1 mg by mouth twice daily Clonidine Hcl Discontinued 0.1 MG PO TWICE A DAY May 18, 2018 1:00am June 04, 2018 1:02pm clopidogrel 75 mg oral tablet (16 sources) [id number] Platelet Inhibitor Start: 09-24-2018 End: 04-14-2019 take 75 mg by mouth once daily Clopidogrel Discontinued 75 MG PO DAILY September 24, 2018 12:00am April 14, 2019 2:10pm Start: 01-09-2018 End: 06-04-2018 take 75 mg by mouth once daily Clopidogrel Discontinue d 75 MG PO DAILY January 09, 2018 12:00am June 04, 2018 1:02pm dexamethasone 6 mg oral tablet (11 sources) Corticosteroid Start: 12-17-2023 End: 12-23-2023 dexAMETHasone 6 mg oral tablet Dose : 6 mg = 1 tab(s), Oral, qDay, 0 Refill(s) Start Date: 12/17/23 Stop Date: 12/23/23 Status: Ordered Start: 12-15-2021 End: 2021 dexamethasone 6 mg oral tabl et Dose : 6 mg = 1 tab(s), Oral, qDay, X 7 day(s), # 7 tab(s), 0 Refill(s), 12/22/21 11:17:00 EDT Start Date: 12/15/21 Stop Date: 12/22/21 Status: Ordered Start: 01-23-2021 End: 01-25-2021 take 6 mg by mouth once daily Dexamethasone Discontinu ed 6 MG PO DAILY January 23, 2021 12:00am January 25, 2021 1:15pm start on 01/24/21 12 hr dextromethorphan hydrobromide 30 mg / guaiFENesin 600 mg extended release oral tablet (8 sources) Uncompetitive H-bdolur-H-aspartate Receptor Antagonist, Sigma-1 Agonist Start: 01-13-2018 End: 06-04-2018 take 1 tablet by mouth twice daily Dextromethorphan-Guaifenesin Discontinued 1 TABLET PO TWICE A DAY January 13, 2018 12:00am June 04, 2018 1:03pm 24 hr dilTIAZem hydrochloride 120 mg extended release oral capsule (16 sources) Calcium Channel Ángela Start: 09-24-2018 End: 09-24-2018 take 120 mg by mouth once daily Diltiazem Hcl Discontinued 120 MG PO DAILY September 24, 2018 10:24am September 24, 2018 10:50am Start: 07-15-2018 End: 09-24-2018 take 120 mg by mouth twice daily Diltiazem Hcl Discontinued 120 MG PO TWICE A DAY July 15, 2018 12:00am September 24, 2018 10:24am doxycycline monohydrate 100 mg oral tablet (8 sources) Tetracycline-class Drug Start: 05-18-2018 End: 05-20-2018 Doxycycline Monohydrate Discontinued 100 MG PO May 18, 2018 1:00am May 20, 2018 1:55pm DULoxetine 30 mg delayed release oral capsule (16 sources) Serotonin and Norepinephrine Reuptake Inhibitor Start: 08-04-2018 End: 04-14-2019 take 30 mg by mouth once daily Duloxetine Discontinued 30 MG PO DAILY August 04, 2018 12:00am April 14, 2019 2:10pm Start: 05-18-2018 End: 06-04-2018 take 30 mg by mouth once daily Duloxetine Discontinued 30 MG PO DAILY May 18, 2018 1:00am June 04, 2018 1:02pm furosemide 40 mg oral tablet (20 sources) Loop Diuretic Start: 05-20-2018 End: 06-04-2018 take 1 tablet by mouth twice daily Furosemide (Lasix) 40 MG tablet Discontinued 40 MG PO TWICE A DAY May 20, 2018 10:40pm June 04, 2018 1:03pm Start: 01-09-2018 End: 05-20-2018 take 20 mg by mouth once daily Furosemide Discontinued 20 MG PO DAILY January 09, 2018 12:00am May 20, 2018 1:55pm heparin sodium, porcine 5000 unt/ml injectable solution (8 sources) Unfractionated Heparin, Anti-coagulant Start: 05-20-2018 End: 06-04-2018 Heparin (Porcine) Discontinued 5000 UNIT SC EVERY 8 HOURS May 20, 2018 1:00am June 04, 2018 1:03pm hydroCHLOROthiazide 25 mg oral tablet (8 sources) Thiazide Diuretic Start: 05-18-2018 End: 05-20-2018 take 25 mg by mouth once daily Hydrochlorothiazide Discontinued 25 MG PO DAILY May 18, 2018 1:00am May 20, 2018 1:54pm Levemir FlexPen (8 sources) Start: 01-09-2018 End: 01-13-2018 inject 80 [IU] by subcutaneous injection twice daily Levemir FlexPen Discontinued 80 UNITS SQ TWICE A DAY January 08, 2018 11:00pm January 13, 2018 10:41am Start: 01-09-2018 End: 01-13-2018 inject 80 [IU] by subcutaneous injection twice daily Levemir FlexPen Discontinued 80 UNITS SQ TWICE A DAY January 09, 2018 12:00am January 13, 2018 11:41am levoFLOXacin 250 mg oral tablet (8 sources) Quinolone Antimicrobial Start: 01-13-2018 End: 05-20-2018 take 250 mg by mouth once daily Levofloxacin Discontinued 250 MG PO DAILY@0600 4 January 13, 2018 12:00am May 20, 2018 1:56pm lidocaine 25 mg/ml / prilocaine 25 mg/ml topical cream (2 sources) Antiarrhythmic, Amide Local Anesthetic Start: 07-12-2021 Lidocaine-Prilocai ne 2.5-2.5 % External Cream Quantity: 30 Refills: 0 Ordered: 26-Aug-2021 DO Start : 12-Jul-2021 Active lisinopril 40 mg oral tablet (20 sources) Angiotensin Converting Enzyme Inhibitor Start: 05-20-2018 End: 05-20-2018 Lisinopril (Zestril) 40 MG tablet Discontinued 20 MG PO TWICE A DAY 0 May 20, 2018 2:01pm May 20, 2018 2:20pm Start: 05-18-2018 End: 05-20-2018 take 1 tablet by mouth twice daily Lisinopril (Zestril) 40 MG tablet Discontinued 40 MG PO TWICE A DAY May 18, 2018 1:00am May 20, 2018 2:01pm Start: 01-13-2018 End: 05-20-2018 take 20 mg by mouth once daily Lisinopril Discontinued 20 MG PO DAILY January 13, 2018 12:00am May 20, 2018 1:56pm Start: 01-09-2018 End: 01-13-2018 take 2 tablets by mouth twice daily Lisinopril (Zestril) 40 MG tablet Discontinued 80 MG PO TWICE A DAY January 09, 2018 12:00am January 13, 2018 11:45am take 1 tablet by castro th once daily lisinopril 40 mg tablet Take 40 mg by mouth once daily. 0 Active lovastatin 40 mg oral tablet (8 sources) HMG-CoA Reductase Inhibitor Start: 01-09-2018 End: 05-20-2018 take 1 tablet by mouth once daily Lovastatin (Mevacor) 40 MG tablet Discontinued 40 MG PO DAILY January 09, 2018 12:00am May 20, 2018 2:20pm mupirocin 0.02 mg/mg topical ointment (8 sources) RNA Synthetase Inhibitor Antibacterial Start: 05-20-2018 End: 06-04-2018 Mupirocin Discontinued 1 APPLIC TOPICAL TWICE A DAY May 20, 2018 1:00am June 04, 2018 1:03pm pantoprazole 20 mg delayed release oral tablet (8 sources) Proton Pump Inhibitor Start: 06-04-2018 End: 08-04-2018 take 20 mg by mouth once daily Pantoprazole Discontinued 20 MG PO DAILY June 04, 2018 1:00am August 04, 2018 5:48pm PARoxetine hydrochloride 30 mg oral tablet (8 sources) Serotonin Reuptake Inhibitor Start: 08-04-2018 End: 09-24-2018 take 30 mg by mouth once daily Paroxetine Hcl Discontinued 30 MG PO DAILY August 04, 2018 12:00am September 24, 2018 10:25am microencapsulated potassium chloride 10 meq extended release oral tablet (20 sources) Start: 01-20-2021 End: 12-10-2022 take 10 mEq by mouth twice daily Potassium Chloride Discontinued 10 MEQ PO TWICE A DAY January 20, 2021 12:00am December 10, 2022 3:43pm Start: 10-11-2020 potassium chlo ride 10 mEq oral capsule, extended release Dose : 10 mEq = 1 cap(s), Oral, BID, # 180 cap(s), 3 Refill(s), Pharmacy: [facility], 168, cm, 10/11/20 14:11:00 EDT, Height, kg, 10/11/20 14:11:00 EDT, Dosing Weight Start Date: 10/11/20 Status: Ordered Start: 10-11-2020 potassium chlo ride 10 mEq oral capsule, extended release Dose : 10 mEq = 1 cap(s), Oral, BID, # 180 cap(s), 3 Refill(s), Pharmacy: [facility], 168, cm, 10/11/20 14:11:00 EDT, Height, kg, 10/11/20 14:11:00 EDT, Dosing Weight Start Date: 10/11/20 Status: Ordered Start: 10-11-2020 Potassium Chlo ride ER 10 MEQ Oral Capsule Extended Release Quantity: 180 Refills: 0 Ordered: 11-Oct-2020 DO Start : 11-Oct-2020 Active sertraline 50 mg oral tablet (8 sources) Serotonin Reuptake Inhibitor Start: 11-27-2019 End: 08-03-2020 take 1 tablet by mouth once daily Sertraline Discontinued 1 TABLET PO DAILY November 27, 2019 12:00am August 03, 2020 1:19pm Problems Active Problems Problem Classification Problem Date Documented Da te Episodic/Chronic Abdominal pain (2 sources) Abdominal pain; Translations: [Abdominal pain, unspecified site] Episodic Comment on above: Added by Problem Lis henry Migration; 2012-06-28; Moved to [facility] Feb 23 2013 9:11PM; Acquired foot deformities (20 sources) Hammer toe 01-21-2022 Chronic Acute and unspecified renal failure (16 sources) Injury of kidney; Translations: [Acute kidney failure, unspecified] 01-10-2021 Episodic Acute bronchitis (2 sources) Acute bronchitis; Translations: [Acute bronchitis] Episodic Acute cerebrovascular disease (8 sources) Ischemic stroke; Translations: [Cerebral infarction, unspecified] Onset: 9 01-10-2021 Chronic Acute myocardial infarction (2 sources) Myocardial infarction; Translations: [Acute myocardial infarction of unspecified site, episode of care unspecified] Chronic Anxiety disorders (20 sources) Anxiety; Translations: [Anxiety state, unspecified] 11-03-2018 Chronic Aortic and peripheral arterial embolism or thrombosis (11 sources) 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 Biliary tract disease (18 sources) Biliary calculus; Translations: [Calculus of gallbladder without mention of cholecystitis, without mention of obstruction] 04-05-2019 Episodic Cardiac dysrhythmias (2 sources) Tachycardia; Translations: [Tachycardia, unspecified] Episodic Chronic kidney disease (20 sources) Chronic kidney disease stage 3; Translations: [Chronic kidney disease stage 4] Onset: 3 01-20-2019 Chronic Chronic obstructive pulmonary disease and bronchiectasis (1 source) Chronic obstructive pulmonary disease with (acute) exacerbation; Translations: [Chronic obstructive pulmonary disease with (acute) exacerbation] Onset: 4 Chronic Complication of device; implant or graft (1 source) Thrombosis; Translations: [Thrombosis due to vascular prosthetic devices, implants and grafts, initial encounter] Onset: 3 Chronic Complication of device; implant or graft (2 sources) Coronary stent stenosis; Translations: [Other complications due to other cardiac device, implant, and graft] Episodic Congestive heart failure; nonhypertensive (20 sources) Congestive heart failure; Translations: [Heart failure with normal ejection fraction] Onset: 3 10-11-2020 Chronic Coronary atherosclerosis and other heart disease (20 sources) Coronary arteriosclerosis; Translations: [History of non-ST segment elevation myocardial infarction] Onset: 1 02-12-2022 Chronic Deficiency and other anemia (1 source) Anemia in other chronic diseases classified elsewhere; Translations: [Anemia in other chronic diseases classified elsewhere] Onset: 5 Chronic Deficiency and other anemia (20 sources) Anemia 11-03-2018 Episodic Deficiency and other anemia (20 sources) Iron deficiency anemia 08-24-2019 Episodic Diabetes mellitus with complications (20 sources) 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 to type 2 diabetes mellitus; Translations: [Retinopathy due to diabetes mellitus] Onset: 5 03-19-2021 Chronic Diabetes mellitus without complication (20 sources) Type 2 diabetes mellitus; Translations: [Diabetes mellitus] Onset: 3 08-24-2019 Chronic Disorders of lipid metabolism (20 sources) Hyperlipidemia; Translations: [Hypercholesterolemia] 11-03-2018 Chronic E Codes: Fall (7 sources) Fall 07-09-2022 Esophageal disorders (4 sources) Gastroesophageal reflux disease; Translations: [Esophageal reflux] Chronic Essential hypertension (20 sources) Hypertensive disorder; Translations: [Unspecified essential hypertension] 11-03-2018 Chronic Genitourinary symptoms and ill-defined conditions (4 sources) Increased frequency of urination; Translations: [Urinary frequency] Episodic Headache; including migraine (20 sources) Chronic headache disorder; Translations: [Headache] 09-02-2021 Episodic Heart valve disorders (18 sources) Heart murmur; Translations: [Cardiac murmur, unspecified] 01-10-2021 Episodic Hypertension with complications and secondary hypertension (8 sources) Hypertensive emergency; Translations: [Hypertensive emergency] 01-10-2021 Chronic Intracranial injury (11 sources) Concussion injury of body structure; Translations: [Concussion] 07-12-2022 Episodic Late effects of cerebrovascular disease (1 source) Dysphagia following cerebral infarction; Translations: [Dysphagia following cerebral infarction] Onset: 9 Chronic Malaise and fatigue (20 sources) Fatigue; Translations: [Other malaise and fatigue] 01-31-2021 Episodic Menopausal disorders (13 sources) Postmenopausal bleeding 12-09-2018 Chronic Mood disorders (19 sources) Depressive disorder; Translations: [Major depressive disorder] 05-28-2022 Chronic Nausea and vomiting (11 sources) Postoperative nausea; Translations: [Nausea] Onset: 5 05-06-2019 Episodic Nonspecific chest pain (8 sources) Chest pain; Translations: [Chest pain, unspecified] 01-10-2021 Episodic Nutritional deficiencies (20 sources) Vitamin D deficiency 11-29-2020 Chronic Other aftercare (1 source) Encounter for therapeutic drug level monitoring; Translations: [Encounter for therapeutic drug level monitoring] Onset: 5 Episodic Other aftercare (1 source) Other intermission coordinator (current) drug therapy; Translations: [Other [facility] (current) drug therapy] Onset: 5 Episodic Other circulatory disease (20 sources) History of cerebrovascular accident; Translations: [Personal history of transient ischemic attack (TIA), and cerebral infarction without residual deficits] 11-03-2018 Episodic Other circulatory disease (2 sources) Personal history of other diseases of circulatory system; Translations: [Coronary Artery Disease] Episodic Comment on above: S/P STENT; Other circulatory disease (2 sources) H/O: hypertension; Translations: [Personal history of other diseases of circulatory system] Episodic Other circulatory disease (8 sources) Carotid bruit; Translations: [Other specified symptoms and signs involving the circulatory and respiratory systems] 01-10-2021 Episodic Other circulatory disease (3 sources) Personal history of transient ischemic attack (TIA), and cerebral infarction without residual deficits; Translations: [Personal history of transient ischemic attack (TIA), and cerebral infarction without residual deficits] 07-12-2022 Episodic Other connective tissue disease (2 sources) Pain in upper limb; Translations: [Pain in limb] Episodic Other ear and sense organ disorders (11 sources) Hearing loss 04-29-2023 Chronic Other gastrointestinal disorders (1 source) Dysphagia, oropharyngeal phase; Translations: [Dysphagia, oropharyngeal phase] Onset: 9 Episodic Other gastrointestinal disorders (20 sources) Chronic constipation 11-03-2018 Episodic Other gastrointestinal disorders (8 sources) H/O: gallstones; Translations: [Personal history of other diseases of the digestive system] 05-26-2019 Episodic Other injuries and conditions due to external causes (8 sources) Closed injury of head; Translations: [Unspecified injury of head, initial encounter] 07-12-2022 Episodic Other injuries and conditions due to external causes (8 sources) Contusion; Translations: [Other injury of unspecified body region, initial encounter] 04-17-2019 Episodic Other injuries and conditions due to external causes (3 sources) Unspecified injury of head, initial encounter; Translations: [Head injury, unspecified] 07-12-2022 Episodic Other injuries and conditions due to external causes (1 source) Traumatic AND/OR non-traumatic injury; Translations: [Other injury of unspecified body region, initial encounter] Onset: Episodic Other liver diseases (1 source) Jaundice 08-16-2024 Episodic Other lower respiratory disease (20 sources) Respiratory insufficiency; Translations: [Other abnormalities of breathing] 10-11-2020 Episodic Other lower respiratory disease (2 sources) Cough; Translations: [Cough] Episodic Other lower respiratory disease (2 sources) H/O: asthma; Translations: [Personal history of other diseases of respiratory system] Episodic Other lower respiratory disease (8 sources) Dyspnea; Translations: [Dyspnea, unspecified] 01-31-2021 Episodic Other lower respiratory disease (20 sources) Hypoxia; Translations: [Hypoxemia] 07-12-2022 Episodic Other lower respiratory disease (5 sources) Hypoxemia; Translations: [Hypoxemia] Onset: 5 07-12-2022 Episodic Other nervous system disorders (8 sources) Unable to walk; Translations: [Difficulty in walking, not elsewhere classified] 02-04-2021 Chronic Other nervous system disorders (2 sources) H/O: glaucoma; Translations: [Personal history of other disorders of nervous system and sense organs] Episodic Other nervous system disorders (2 sources) H/O: Disorder; Translations: [Personal history of other disorders of nervous system and sense organs] Episodic Other nervous system disorders (7 sources) Slurred speech 07-22-2022 Episodic Other nervous system disorders (3 sources) Tremor 07-12-2024 Episodic Other non-traumatic joint disorders (13 sources) Shoulder pain; Translations: [Pain in joint, shoulder region] 07-31-2021 Episodic Other nutritional; endocrine; and metabolic disorders (2 sources) Morbid obesity; Translations: [Morbid obesity] Chronic Other nutritional; endocrine; and metabolic disorders (2 sources) Hypocalcemia; Translations: [Hypocalcemia] Chronic Other nutritional; endocrine; and metabolic disorders (2 sources) Weight loss; Translations: [Loss of weight] Episodic Other nutritional; endocrine; and metabolic disorders (2 sources) H/O: diabetes mellitus; Translations: [Personal history of other endocrine, metabolic, and immunity disorders] Episodic Other nutritional; endocrine; and metabolic disorders (2 sources) History of hypercholesterolemia; Translations: [Personal history of other endocrine, metabolic, and immunity disorders] Episodic Other screening for suspected conditions (not mental disorders or infectious disease) (10 sources) Serum creatinine raised; Translations: [Other nonspecific findings on examination of blood] 05-06-2021 Episodic Other skin disorders (20 sources) Mass of lower limb 10-23-2021 Episodic Other upper respiratory infections (6 sources) Acute sinusitis; Translations: [Acute sinusitis, unspecified] Onset: 5 04-15-2022 Episodic Pneumonia (except that caused by tuberculosis or sexually transmitted disease) (1 source) Pneumonia (except that caused by tuberculosis or sexually transmitted disease) 12-17-2021 Residual codes; unclassified (1 source) Noncompliance with medication regimen; Translations: [Patient's other noncompliance with medication regimen] Onset: 2 Episodic Residual codes; unclassified (8 sources) Edema of lower extremity; Translations: [Localized edema] 04-17-2019 Episodic Residual codes; unclassified (20 sources) Altered mental status; Translations: [Altered mental status, unspecified] 07-22-2022 Episodic Residual codes; unclassified (1 source) Altered mental status, unspecified; Translations: [Altered mental status] 07-23-2022 Episodic Residual codes; unclassified (7 sources) Patient condition resolved 07-22-2022 Episodic Residual codes; unclassified (5 sources) Postmenopausal state 01-12-2024 Episodic Respiratory failure; insufficiency; arrest (adult) (1 source) Respiratory failure; insufficiency; arrest (adult) 12-17-2021 Spondylosis; intervertebral disc disorders; other back problems (20 sources) Backache; Translations: [Low back pain] 10-11-2020 Episodic Superficial injury; contusion (19 sources) Superficial bruising of head and neck; Translations: [Contusion of other part of head, initial encounter] Onset: 3 07-12-2022 Episodic Unclassified (20 sources) Patient encounter status 08-09-2020 Unclassified (18 sources) Drug therapy finding 07-09-2022 Unclassified (1 source) Cough, unspecified; Translations: [Cough, unspecified] Onset: 5 Viral infection (16 sources) Disease caused by 2018-nCoV; Translations: [COVID-19] Onset: 1 01-31-2021 Episodic Viral infection (3 sources) Disease caused by nCoV; Translations: [COVID-19] Onset: 4 12-17-2021 Past or Other Problems Problem Classification Problem Date Documented Da te Episodic/Chronic Coronary atherosclerosis and other heart disease (3 sources) Presence of coronary angioplasty implant and graft; Translations: [Percutaneous transluminal coronary angioplasty status] Onset: 06-28-2016 07-12-2022 Episodic Other ear and sense organ disorders (1 source) Unspecified disorder of ear, unspecified ear; Translations: [Unspecified disorder of ear, unspecified ear] Onset: 04-11-2024 Episodic Pneumonia (except that caused by tuberculosis or sexually transmitted disease) (18 sources) Community acquired pneumonia; Translations: [Pneumonia, unspecified organism] Onset: 12-25-2023 07-12-2022 Episodic Residual codes; unclassified (8 sources) History of cardiac catheterization; Translations: [Other specified postprocedural states] Onset: 05-27-2021 05-27-2021 Episodic Residual codes; unclassified (1 source) Other specified health status; Translations: [Other specified health status] Onset: 12-25-2023 Episodic Respiratory failure; insufficiency; arrest (adult) (2 sources) Acute respiratory failure with hypoxia; Translations: [Acute respiratory failure with hypoxia] Onset: 11-21-2023 Episodic Results Test Name Value Interpretation Reference Range Facility XR CHEST 2 VIEWSon 5 XR CHEST 2 VIEWS ORIGINAL HISTORY: Short of breath COMPARISON: 31 Jul 2024 FINDINGS: There are a few mild streaky airspace opacities in the lung bases. Cardiac silhouette is mildly enlarged. Pulmonary vasculature is unremarkable in appearance. IMPRESSION: Mild atelectasis. Mild cardiomegaly. Interpreted by: Stevie Shukla MD Preliminary Report By: Stevie Shukla MD Electronically signed By Stevie Shukla MD Dictated Date: 08/17/2024 9:56:35 AM Prelim Date: 08/17/2024 9:57:05 AM Sign Date: 08/17/2024 9:57:05 AM Ordering Provider: DENISSE Self [facility] .Auto Diffon 08-16-2024 Basophil, Absolute 0.0 10 3/mcL Normal 0.0-0.3 [facility] Comment on above: Performed By: #### C MP, ANEU, ADIFF, AMM, GFR, PBNP, CBC #### [address] [address] Basophils/100 WBC (Bld) 0.3 % Normal 0.0-2.5 [facility] Comment on above: Performed By: #### C MP, ANEU, ADIFF, AMM, GFR, PBNP, CBC #### [address] [address] Eosinophil, Absolute 0.2 10 3/mcL Normal 0.0-0.7 [facility] Comment on above: Performed By: #### C MP, ANEU, ADIFF, AMM, GFR, PBNP, CBC #### [address] [address] Eosinophils/100 WBC (Bld) 2.0 % Normal 0.0-6.0 [facility] Comment on above: Performed By: #### C MP, ANEU, ADIFF, AMM, GFR, PBNP, CBC #### [address] [address] Lymphocyte, Absolute 0.6 10 3/mcL Low 0.9-4.3 [facility] Comment on above: Performed By: #### C MP, ANEU, ADIFF, AMM, GFR, PBNP, CBC #### [address] [address] Lymphocytes/100 WBC (Bld) 6.0 % Low 20.0-40.0 [facility] Comment on above: Performed By: #### C MP, ANEU, ADIFF, AMM, GFR, PBNP, CBC #### [address] [address] Monocyte, Absolute 0.8 10 3/mcL Normal 0.1-1.4 [facility] Comment on above: Performed By: #### C MP, ANEU, ADIFF, AMM, GFR, PBNP, CBC #### [address] [address] Monocytes/100 WBC (Bld) 8.8 % Normal 2.0-13.0 [facility] Comment on above: Performed By: #### C MP, ANEU, ADIFF, AMM, GFR, PBNP, CBC #### [address] [address] Neutrophils/100 WBC (Bld) 82.9 % High 50.0-75.0 [facility] Comment on above: Performed By: #### C MP, ANEU, ADIFF, AMM, GFR, PBNP, CBC #### [address] [address] .GFRon 08-16-2024 Estimated Glomerular Filtration Rate 12 ml/min/1.73sqm Normal [facility] Comment on above: Result Comment: Stages of Chronic Kidney Disease (CKD) Stage Description eGFR(ml/min/1.73 sq.m.) CKD 1 Normal kidney function or >=90 normal kindney function with possible kidney damage (ex. Proteinuria) CKD 2 Kidney damage with mild loss 60-89 of kidney function CKD 3a Mild to moderate loss of kidney 45-59 function CKD 3b Moderate to severe loss of 30-44 of kindey function CKD 4 Severe loss of kidney function 15-29 CKD 5 Kidney failure <15 Note: (go live 2024) the eGFR calculation was updated to the 2020 CKD-EPI creatinine equation without a race factor to calculate the eGFR results. Performed By: #### C MP, ANEU, ADIFF, AMM, GFR, PBNP, CBC #### [address] [address] .NEUABSon 08-16-2024 Neutrophil, Absolute 7.9 10 3/mcL Normal 2.3-8.1 [facility] Comment on above: Performed By: #### C MP, ANEU, ADIFF, AMM, GFR, PBNP, CBC #### [address] [address] Randi 08-16-2024 Ammonia (P) [Moles/Vol] 14 umol/L Normal 11-32 [facility] Comment on above: Performed By: #### C MP, ANEU, ADIFF, AMM, GFR, PBNP, CBC #### [place] [address] CBCon 08-16-2024 Erythrocyte distribution width (RBC) [Ratio] 17.6 % High 11.5-15.5 [facility] Comment on above: Performed By: #### C MP, ANEU, ADIFF, AMM, GFR, PBNP, CBC #### [place] [address] Hematocrit (Bld) [Volume fraction] 31.6 % Low 34.0-46.0 [facility] Comment on above: Performed By: #### C MP, ANEU, ADIFF, AMM, GFR, PBNP, CBC #### [place] [address] Hgb 10.7 G/dL Low 12.0-16.0 [facility] Comment on above: Performed By: #### C MP, ANEU, ADIFF, AMM, GFR, PBNP, CBC #### [place] [address] MCH (RBC) [Entitic mass] 33.2 pg High 27.0-33.0 [facility] Comment on above: Performed By: #### C MP, ANEU, ADIFF, AMM, GFR, PBNP, CBC #### [place] [address] MCHC 33.8 G/dL Normal 32.0-36.0 [facility] Comment on above: Performed By: #### C MP, ANEU, ADIFF, AMM, GFR, PBNP, CBC #### [address] [address] MCV (RBC) [Entitic vol] 98.0 fL Normal 80.0-99.0 [facility] Comment on above: Performed By: #### C MP, ANEU, ADIFF, AMM, GFR, PBNP, CBC #### [address] [address] Platelet 161 10 3/mcL Normal 150-450 [facility] Comment on above: Performed By: #### C MP, ANEU, ADIFF, AMM, GFR, PBNP, CBC #### [address] [address] Platelet mean volume (Bld) [Entitic vol] 10.3 fL Normal 6.6-10.5 [facility] Comment on above: Performed By: #### C MP, ANEU, ADIFF, AMM, GFR, PBNP, CBC #### [address] [address] RBC 3.23 10 6/mcL Low 4.10-5.30 [facility] Comment on above: Performed By: #### C MP, ANEU, ADIFF, AMM, GFR, PBNP, CBC #### [address] [address] WBC 9.5 10 3/mcL Normal 4.5-10.8 [facility] Comment on above: Performed By: #### C MP, ANEU, ADIFF, AMM, GFR, PBNP, CBC #### [address] [address] CMPon 08-16-2024 Albumin Level 3.3 G/dL Low 3.5-5.0 [facility] Comment on above: Performed By: #### C MP, ANEU, ADIFF, AMM, GFR, PBNP, CBC #### [address] [address] Albumin/Globulin [Mass ratio] 0.9 {ratio} Low 1.1-2.5 [facility] Comment on above: Performed By: #### C MP, ANEU, ADIFF, AMM, GFR, PBNP, CBC #### [address] [address] ALP [Catalytic activity/Vol] 88 U/L Normal 40-135 [facility] Comment on above: Performed By: #### C MP, ANEU, ADIFF, AMM, GFR, PBNP, CBC #### [address] [address] ALT [Catalytic activity/Vol] 33 U/L Normal 14-59 [facility] Comment on above: Performed By: #### C MP, ANEU, ADIFF, AMM, GFR, PBNP, CBC #### [place] [address] AST [Catalytic activity/Vol] 25 U/L Normal 10-40 [facility] Comment on above: Performed By: #### C MP, ANEU, ADIFF, AMM, GFR, PBNP, CBC #### [address] [address] Bili Total 1.0 mg/dL Normal 0.2-1.0 [facility] Comment on above: Result Comment: Use of this assay is not recommended for patients undergoing treatment with eltrombopag due to the potential for falsely elevated results. Performed By: #### C MP, ANEU, ADIFF, AMM, GFR, PBNP, CBC #### [address] [address] BUN/Creatinine Ratio 7 ratio Normal 7-27 [facility] Comment on above: Performed By: #### C MP, ANEU, ADIFF, AMM, GFR, PBNP, CBC #### [address] [address] Calcium [Mass/Vol] 9.0 mg/dL Normal 8.4-10.2 [facility] Comment on above: Performed By: #### C MP, ANEU, ADIFF, AMM, GFR, PBNP, CBC #### [address] [address] Chloride [Moles/Vol] 98 mmol/L Normal 98-107 [facility] Comment on above: Performed By: #### C MP, ANEU, ADIFF, AMM, GFR, PBNP, CBC #### [address] [address] CO2 [Moles/Vol] 35 mmol/L High 22-29 [facility] Comment on above: Performed By: #### C MP, ANEU, ADIFF, AMM, GFR, PBNP, CBC #### [address] [address] Creatinine [Mass/Vol] 3.97 mg/dL High 0.51-0.95 [facility] Comment on above: Performed By: #### C MP, ANEU, ADIFF, AMM, GFR, PBNP, CBC #### [place] [address] Electrolyte Balance 2.0 mEq/L Low 4.0-15.0 [facility] Comment on above: Performed By: #### C MP, ANEU, ADIFF, AMM, GFR, PBNP, CBC #### [place] [address] Globulin 3.7 G/dL Normal 2.7-4.4 [facility] Comment on above: Performed By: #### C MP, ANEU, ADIFF, AMM, GFR, PBNP, CBC #### [place] [address] Glucose [Mass/Vol] 137 mg/dL High 70-105 [facility] Comment on above: Performed By: #### C MP, ANEU, ADIFF, AMM, GFR, PBNP, CBC #### [place] [address] Potassium [Moles/Vol] 4.9 mmol/L Normal 3.5-5.1 [facility] Comment on above: Performed By: #### C MP, ANEU, ADIFF, AMM, GFR, PBNP, CBC #### [place] [address] [place], [place] [address] Sodium [Moles/Vol] 135 mmol/L Low 136-145 [facility] Comment on above: Performed By: #### C MP, ANEU, ADIFF, AMM, GFR, PBNP, CBC #### [place] [address] [place], [place] [address] Total Protein 7.0 G/dL Normal 6.4-8.2 [facility] Comment on above: Performed By: #### C MP, ANEU, ADIFF, AMM, GFR, PBNP, CBC #### [place] [id number] [place], [place] [address] Urea nitrogen [Mass/Vol] 28 mg/dL High 7-18 [facility] Comment on above: Performed By: #### C MP, ANEU, ADIFF, AMM, GFR, PBNP, CBC #### [address] [address] LABORATORYOrdered By: SYSTEM SYSTEM on 08-16-2024 Albumin BCP dye [Mass/Vol] 3.3 G/dL Low 3.5 - 5.0 G/dL AO ADM SS Albumin/Globulin [Mass ratio] 0.9 {ratio} Low 1.1 - 2.5 ratio AO ADM SS ALP [Catalytic activity/Vol] 88 U/L Normal 40 - 135 U/L AO ADM SS ALT With P-5'-P [Catalytic activity/Vol] 33 U/L Normal 14 - 59 U/L AO ADM SS Ammonia (P) [Moles/Vol] 14 umol/L Normal 11 - 32 umol/L AO ADM SS AST With P-5'-P [Catalytic activity/Vol] 25 U/L Normal 10 - 40 U/L AO ADM SS Basophils (Bld) [#/Vol] 0.0 103/mcL Normal 0.0 - 0.3 10^3/mcL AO Workflow SS Basophils/100 WBC (Bld) 0.3 % Normal 0.0 - 2.5 % AO Workflow SS Bilirubin [Mass/Vol] 1.0 mg/dL Normal 0.2 - 1 .0 mg/dL AO ADM SS Comment on above: Interpretive Data: U se of this assay is not recommended for patients undergoing treatment with eltrombopag due to the potential for falsely elevated results. Calcium [Mass/Vol] 9.0 mg/dL Normal 8.4 - 10. 2 mg/dL AO ADM SS Chloride [Moles/Vol] 98 mmol/L Normal 98 - 10 7 mmol/L AO ADM SS CO2 [Moles/Vol] 35 mmol/L High 22 - 29 mmol/L AO ADM SS Creatinine [Mass/Vol] 3.97 mg/dL High 0.51 - 0.95 mg/dL AO ADM SS Electrolyte Balance 2.0 mEq/L Low 4.0 - 15 .0 mEq/L AO ADM SS Eosinophil, Absolute 0.2 103/mcL Normal 0.0 - 0 .7 10^3/mcL AO Workflow SS Eosinophils/100 WBC (Bld) 2.0 % Normal 0.0 - 6.0 % AO Workflow SS Erythrocyte distribution width (RBC) [Ratio] 17.6 % High 11.5 - 15.5 % AO Workflow SS Estimated Glomerular Filtration Rate 12 ml/min/1.73sqm Invalid Interpretation Code AO Chemistry S Comment on above: Interpretive Data: Stages of Chronic Kidney Disease (CKD) Stage Description eGFR(ml/min/1.73 sq.m.) CKD 1 Normal kidney function or >=90 normal kindney function with possible kidney damage (ex. Proteinuria) CKD 2 Kidney damage with mild loss 60-89 of kidney function CKD 3a Mild to moderate loss of kidney 45-59 function CKD 3b Moderate to severe loss of 30-44 of kindey function CKD 4 Severe loss of kidney function 15-29 CKD 5 Kidney failure <15 Note: (go live 2024) the eGFR calculation was updated to the 2020 CKD-EPI creatinine equation without a race factor to calculate the eGFR results. Globulin 3.7 G/dL Normal 2.7 - 4.4 G/dL AO ADM SS Glucose [Mass/Vol] 137 mg/dL High 70 - 105 mg/dL AO ADM SS Hematocrit (Bld) [Volume fraction] 31.6 % Low 34.0 - 46.0 % AO Workflow SS Hemoglobin (Bld) [Mass/Vol] 10.7 G/dL Low 12.0 - 16.0 G/dL AO Workflow SS Lymphocytes (Bld) [#/Vol] 0.6 103/mcL Low 0.9 - 4.3 10^3/mcL AO Workflow SS Lymphocytes/100 WBC (Bld) 6.0 % Low 20.0 - 40.0 % AO Workflow SS MCH (RBC) [Entitic mass] 33.2 pg High 27.0 - 33.0 pg AO Workflow SS MCHC 33.8 G/dL Normal 32.0 - 36.0 G/dL AO Workflow SS MCV (RBC) [Entitic vol] 98.0 fL Normal 80.0 - 99.0 fL AO Workflow SS Monocytes (Bld) [#/Vol] 0.8 103/mcL Normal 0.1 - 1.4 10^3/mcL AO Workflow SS Monocytes/100 WBC (Bld) 8.8 % Normal 2.0 - 13.0 % AO Workflow SS Natriuretic peptide.B prohormone N-Terminal [Mass/Vol] 9376 pg/mL High 0 - 125 pg/mL AO ADM SS Comment on above: Interpretive Data: N T-proBNP results of less than 300 pg/mL effectively rules out acute congestive heart failure with 99% negative predictive value. Neutrophils (Bld) [#/Vol] 7.9 103/mcL Normal 2.3 - 8.1 10^3/mcL AO Workflow SS Neutrophils/100 WBC (Bld) 82.9 % High 50.0 - 75.0 % AO Workflow SS Platelet mean volume (Bld) [Entitic vol] 10.3 fL Normal 6.6 - 10.5 fL AO Workflow SS Platelets (Bld) [#/Vol] 161 103/mcL Normal 150 - 450 10^3/mcL AO Workflow SS Potassium [Moles/Vol] 4.9 mmol/L Normal 3.5 - 5.1 mmol/L AO ADM SS Protein [Mass/Vol] 7.0 G/dL Normal 6.4 - 8.2 G/dL AO ADM SS RBC (Bld) [#/Vol] 3.23 106/mcL Low 4.10 - 5.3 0 10^6/mcL AO Workflow SS Sodium [Moles/Vol] 135 mmol/L Low 136 - 145 mmol/L AO ADM SS Urea nitrogen [Mass/Vol] 28 mg/dL High 7 - 18 mg/dL AO ADM SS Urea nitrogen/Creatinine [Mass ratio] 7 ratio Normal 7 - 27 ratio AO ADM SS WBC (Bld) [#/Vol] 9.5 103/mcL Normal 4.5 - 10.8 10^3/mcL AO Workflow SS PBNPon 08-16-2024 Natriuretic peptide B (Bld) [Mass/Vol] 9376 pg/mL High 0-125 [facility] Comment on above: Result Comment: NT-p roBNP results of less than 300 pg/mL effectively rules out acute congestive heart failure with 99% negative predictive value. Performed By: #### C MP, ANEU, ADIFF, AMM, GFR, PBNP, CBC #### [facility] [address] [place], [place] [address] Respiratory Cultureon [address] [facility] Comment on above: Performed By: #### M 100.2400, M100.2000 ####[facility] [address] [place], [address] Bedside Glucoseon 08-02-2024 FINGERSTICK GLU 94 mg/dL Normal 74-106 [facility] Comment on above: Result Comment: GALA GEMENT OF PATIENT CARE PER NURSING PROTOCOL Performed By: #### L 501.080 ####[facility] [address] [place], [address] FINGERSTICK GLU 129 mg/dL High 74-106 [facility] Comment on above: Result Comment: GALA GEMENT OF PATIENT CARE PER NURSING PROTOCOL Performed By: #### L 501.080 ####[facility] [address] [place], [address] FINGERSTICK GLU 133 mg/dL High 74-106 [facility] Comment on above: Result Comment: GALA GEMENT OF PATIENT CARE PER NURSING PROTOCOL Performed By: #### L 501.080 ####[facility] [address] [place], [address] CBC W/Diff, Automatedon 05- Absolute Lymph 0.73 X10 3/uL Low 0.83-4.51 [facility] Comment on above: Performed By: #### L 100.0100 ####[facility] [address] [place], [address] Absolute Neut 5.3 X10 3/uL Normal 2.0-7.7 [facility] Comment on above: Performed By: #### L 100.0100 ####[facility] [address] [place], [address] Basophils/100 WBC (Bld) 0.3 % Normal 0-1 [facility] Comment on above: Performed By: #### L 100.0100 ####[facility] [address] [place], [address] Eosinophils/100 WBC (Bld) 3.2 % Normal 0-5 [facility] Comment on above: Performed By: #### L 100.0100 ####[facility] [address] [place], [address] Erythrocyte distribution width (RBC) [Ratio] 15.7 % High 11.6-14.6 [facility] Comment on above: Performed By: #### L 100.0100 ####[facility] [address] [place], [address] Hematocrit (Bld) [Volume fraction] 27.0 % Low 37-47 [facility] Comment on above: Performed By: #### L 100.0100 ####[facility] [address] [place], [address] Hemoglobin (Bld) [Mass/Vol] 9.1 g/dL Low 12.0-15.0 [facility] Comment on above: Performed By: #### L 100.0100 ####[facility] [address] [place], [address] IG% 0.700 Normal 0.0-0.9 [facility] Comment on above: Result Comment: IG% - Immature Granulocytes (promyelocytes, myelocytes andmetamyelocytes) > 1% indicates that a LEFT SHIFT is Present. Performed By: #### L 100.0100 ####[facility] [address] [place], [address] Lymphocytes/100 WBC (Bld) 10.5 % Low 19-41 [facility] Comment on above: Performed By: #### L 100.0100 ####[facility] [address] [place], [address] MCH (RBC) [Entitic mass] 32.9 pg High 27.0-32.0 [facility] Comment on above: Performed By: #### L 100.0100 ####[facility] [address] [place], [address] MCHC (RBC) [Mass/Vol] 33.7 g/dL Normal 32-36 [facility] Comment on above: Performed By: #### L 100.0100 ####[facility] [address] [place], [address] MCV (RBC) [Entitic vol] 97.5 fL Normal 81-99 [facility] Comment on above: Performed By: #### L 100.0100 ####[facility] [address] [place], [address] Monocytes/100 WBC (Bld) 8.6 % Normal 0-10 [facility] Comment on above: Performed By: #### L 100.0100 ####[facility] [address] [place], [address] Neutrophils/100 WBC (Bld) 76.7 % High 47-70 [facility] Comment on above: Performed By: #### L 100.0100 ####[facility] [address] [place], [address] Nucleated RBC (Bld) [#/Vol] 0 10*3/uL Normal 0-5 [facility] Comment on above: Performed By: #### L 100.0100 ####[facility] [address] [place], [address] Platelet mean volume (Bld) [Entitic vol] 12.1 fL High 6.2-12.0 [facility] Comment on above: Performed By: #### L 100.0100 ####[facility] [address] [place], [address] Platelets (Bld) [#/Vol] 133 10*3/uL Low 150-450 [facility] Comment on above: Performed By: #### L 100.0100 ####[facility] [address] [place], [address] RBC (Bld) [#/Vol] 2.77 10*6/uL Low 4.2-5.4 [facility] Comment on above: Performed By: #### L 100.0100 ####[facility] [address] [place], [address] RDW SD 55.5 fl High 35.1-43.9 [facility] Comment on above: Performed By: #### L 100.0100 ####[facility] [address] [place], [address] WBC (Bld) [#/Vol] 7.0 10*3/uL Normal 4.4-11.0 [facility] Comment on above: Performed By: #### L 100.0100 ####[facility] [address] [place], [address] Bedside Glucoseon 08-01-2024 FINGERSTICK GLU 149 mg/dL High 74-106 [facility] Comment on above: Result Comment: GALA GEMENT OF PATIENT CARE PER NURSING PROTOCOL Performed By: #### L 501.080 ####[facility] [address] [place], [address] FINGERSTICK GLU 159 mg/dL High 74-106 [facility] Comment on above: Result Comment: GALA GEMENT OF PATIENT CARE PER NURSING PROTOCOL Performed By: #### L 501.080 ####[facility] [address] [place], [address] FINGERSTICK GLU 106 mg/dL Normal 74-106 [facility] Comment on above: Result Comment: GALA GEMENT OF PATIENT CARE PER NURSING PROTOCOL Performed By: #### L 501.080 ####[facility] [address] [place], [address] FINGERSTICK GLU 133 mg/dL High 74-106 [facility] Comment on above: Result Comment: GALA GEMENT OF PATIENT CARE PER NURSING PROTOCOL Performed By: #### L 501.080 ####[facility] [address] [place], [address] CBC W/Diff, Automatedon 05-0 5-2025 Absolute Lymph 0.61 X10 3/uL Low 0.83-4.51 [facility] Comment on above: Performed By: #### L 100.0100, L500.4050 ####[facility] [address] [place], [address] Absolute Neut 7.1 X10 3/uL Normal 2.0-7.7 [facility] Comment on above: Performed By: #### L 100.0100, L500.4050 ####[facility] [address] [place], [address] Basophils/100 WBC (Bld) 0.5 % Normal 0-1 [facility] Comment on above: Performed By: #### L 100.0100, L500.4050 ####[facility] [address] [place], [address] Eosinophils/100 WBC (Bld) 2.9 % Normal 0-5 [facility] Comment on above: Performed By: #### L 100.0100, L500.4050 ####[facility] [address] [place], [address] Erythrocyte distribution width (RBC) [Ratio] 16.0 % High 11.6-14.6 [facility] Comment on above: Performed By: #### L 100.0100, L500.4050 ####[facility] [address] [place], [address] Hematocrit (Bld) [Volume fraction] 31.3 % Low 37-47 [facility] Comment on above: Performed By: #### L 100.0100, L500.4050 ####[facility] [address] [place], [address] Hemoglobin (Bld) [Mass/Vol] 10.2 g/dL Low 12.0-15.0 [facility] Comment on above: Performed By: #### L 100.0100, L500.4050 ####[facility] [address] [place], [address] IG% 0.500 Normal 0.0-0.9 [facility] Comment on above: Result Comment: IG% - Immature Granulocytes (promyelocytes, myelocytes andmetamyelocytes) > 1% indicates that a LEFT SHIFT is Present. Performed By: #### L 100.0100, L500.4050 ####[facility] [address] [place], [address] Lymphocytes/100 WBC (Bld) 7.0 % Low 19-41 [facility] Comment on above: Performed By: #### L 100.0100, L500.4050 ####[facility] [address] [place], [address] MCH (RBC) [Entitic mass] 33.2 pg High 27.0-32.0 [facility] Comment on above: Performed By: #### L 100.0100, L500.4050 ####[facility] [id number] [place], [address] MCHC (RBC) [Mass/Vol] 32.6 g/dL Normal 32-36 [facility] Comment on above: Performed By: #### L 100.0100, L500.4050 ####[facility] [id number] [place], [address] MCV (RBC) [Entitic vol] 102.0 fL High 81-99 [facility] Comment on above: Performed By: #### L 100.0100, L500.4050 ####[facility] [id number] [place], [address] Monocytes/100 WBC (Bld) 8.2 % Normal 0-10 [facility] Comment on above: Performed By: #### L 100.0100, L500.4050 ####[facility] [address] [place], [address] Neutrophils/100 WBC (Bld) 80.9 % High 47-70 [facility] Comment on above: Performed By: #### L 100.0100, L500.4050 ####[facility] [address] [place], [address] Nucleated RBC (Bld) [#/Vol] 0 10*3/uL Normal 0-5 [facility] Comment on above: Performed By: #### L 100.0100, L500.4050 ####[facility] [address] [place], [address] Platelet mean volume (Bld) [Entitic vol] 12.9 fL High 6.2-12.0 [facility] Comment on above: Performed By: #### L 100.0100, L500.4050 ####[facility] [address] [place], [address] Platelets (Bld) [#/Vol] 144 10*3/uL Low 150-450 [facility] Comment on above: Performed By: #### L 100.0100, L500.4050 ####[facility] [address] [place], [address] RBC (Bld) [#/Vol] 3.07 10*6/uL Low 4.2-5.4 [facility] Comment on above: Performed By: #### L 100.0100, L500.4050 ####[facility] [address] [place], [address] RDW SD 59.0 fl High 35.1-43.9 [facility] Comment on above: Performed By: #### L 100.0100, L500.4050 ####[facility] [address] [place], [address] WBC (Bld) [#/Vol] 8.7 10*3/uL Normal 4.4-11.0 [facility] Comment on above: Performed By: #### L 100.0100, L500.4050 ####[facility] [address] [place], [address] CDIFF (PCR)on 08-01-2024 CDIFF Is the patient recei ving laxatives? N New/unexplained onset of 3 or more stools in past 24 hrs? Y Pending 027 027 NAP1-B1 Presumptive Negative *for epidemiolologic???use C. Diff PCR Negative- No toxigenic C. Diff Detected Normal [facility] Comment on above: Performed By: #### M 100.637, M100.6796 ####[facility] [address] [place], [address] Comprehensive Metabolic Prof ilon 08-01-2024 Albumin [Mass/Vol] 3.5 g/dL Normal 3.5-5.0 [facility] Comment on above: Performed By: #### L 100.0100, L500.4050 ####[facility] [address] [place], [address] Albumin/Globulin [Mass ratio] 1.2 {ratio} Normal 0.9-2.4 [facility] Comment on above: Performed By: #### L 100.0100, L500.4050 ####[facility] [address] [place], [address] ALK PHOS 67 U/L Normal 35-104 [facility] Comment on above: Performed By: #### L 100.0100, L500.4050 ####[facility] [address] [place], [address] ALT [Catalytic activity/Vol] 21 U/L Normal <=34 [facility] Comment on above: Performed By: #### L 100.0100, L500.4050 ####[facility] [address] [place], [address] AST [Catalytic activity/Vol] 31 U/L Normal <=31 [facility] Comment on above: Performed By: #### L 100.0100, L500.4050 ####[facility] [address] [place], [address] Bilirubin [Mass/Vol] 0.67 mg/dL Normal 0.00-1.30 [facility] Comment on above: Performed By: #### L 100.0100, L500.4050 ####[facility] [address] [place], [address] BUN/CRE 6.6 RATIO Low 10-20 [facility] Comment on above: Performed By: #### L 100.0100, L500.4050 ####[facility] [address] [place], [address] Calcium [Mass/Vol] 8.5 mg/dL Normal 7.6-11.0 [facility] Comment on above: Performed By: #### L 100.0100, L500.4050 ####[facility] [address] [place], [address] Chloride [Moles/Vol] 98 mmol/L Normal 98-108 [facility] Comment on above: Performed By: #### L 100.0100, L500.4050 ####[facility] [address], [address] CO2 [Moles/Vol] 24.8 mmol/L Normal 21.0-32.0 [facility] Comment on above: Performed By: #### L 100.0100, L500.4050 ####[facility] [address] [place], [address] Creatinine [Mass/Vol] 6.96 mg/dL High 0.70-1.20 [facility] Comment on above: Performed By: #### L 100.0100, L500.4050 ####[facility] [address] [place], [address] ECRCL 10.15 ml/min Low 50-250 [facility] Comment on above: Performed By: #### L 100.0100, L500.4050 ####[facility] [address] [place], [address] GAP 15 Normal 5-15 [facility] Comment on above: Performed By: #### L 100.0100, L500.4050 ####[facility] [address] [place], [address] GFR/1.73 sq M.predicted among non-blacks MDRD (S/P/Bld) [Vol rate/Area] 6 mL/min/{1.73_m2} Low >60 [facility] Comment on above: Result Comment: mL/m in/1.73m2 CKD-EPI Creatinine Equation (2020) Performed By: #### L 100.0100, L500.4050 ####[facility] [address] [place], [address] Globulin (S) [Mass/Vol] 2.8 g/dL Normal 2.2-4.2 [facility] Comment on above: Performed By: #### L 100.0100, L500.4050 ####[facility] [address] [place], [address] Glucose [Mass/Vol] 109 mg/dL High 70-99 [facility] Comment on above: Performed By: #### L 100.0100, L500.4050 ####[facility] [address] [place], [address] Potassium [Moles/Vol] 4.3 mmol/L Normal 3.3-5.1 [facility] Comment on above: Performed By: #### L 100.0100, L500.4050 ####[facility] [address] [place], [address] Sodium [Moles/Vol] 137 mmol/L Normal 133-145 [facility] Comment on above: Performed By: #### L 100.0100, L500.4050 ####[facility] [address] [place], [address] T PROT 6.3 g/dL Normal 5.9-8.4 [facility] Comment on above: Performed By: #### L 100.0100, L500.4050 ####[facility] [address] [place], [address] Urea nitrogen [Mass/Vol] 46 mg/dL High 4-19 [facility] Comment on above: Performed By: #### L 100.0100, L500.4050 ####[facility] [address] [place], [address] Consultation - Nephrologyon 08-01-2024 Consultation - Nephrology Normal [facility] ENTERIC PATHOGEN PANEL STOOL on 08-01-[address] [facility] Comment on above: Performed By: #### M 100.637, M100.6796 ####[facility] [address] [place], [address] Gram Stainon 08-01-2024 GS Acceptable Specimen? Yes (<25 Epithelial cells per/lpf) Gram Stain 2+ Gram positive cocci 2+ Gram positive rods Normal [facility] Comment on above: Performed By: #### M 100.2400, M100.2000 ####[facility] [address] [place], [address] RESPIRATORY PANEL MOLECULARo n 08-01-[address] [facility] Comment on above: Performed By: #### M 100.638 ####[facility] [address] [place], [address] .Auto Diffon 07-31-2024 Basophil, Absolute 0.0 10 3/mcL Normal 0.0-0.3 [facility] Comment on above: Performed By: #### B MP, CBC, ANEU, ADIFF, GFR, MDW, TROPHS ####[facility] [address] [place], [place] [address] Basophils/100 WBC (Bld) 0.4 % Normal 0.0-2.5 [facility] Comment on above: Performed By: #### B MP, CBC, ANEU, ADIFF, GFR, MDW, TROPHS ####[facility] [address] [place], [place] [address] Eosinophil, Absolute 0.4 10 3/mcL Normal 0.0-0.7 [facility] Comment on above: Performed By: #### B MP, CBC, ANEU, ADIFF, GFR, MDW, TROPHS ####[facility] [place], [place] [address] Eosinophils/100 WBC (Bld) 4.3 % Normal 0.0-6.0 [facility] Comment on above: Performed By: #### B MP, CBC, ANEU, ADIFF, GFR, MDW, TROPHS ####[facility] [place], [place] [address] Lymphocyte, Absolute 0.4 10 3/mcL Low 0.9-4.3 [facility] Comment on above: Performed By: #### B MP, CBC, ANEU, ADIFF, GFR, MDW, TROPHS ####[facility] [address] [place], [place] [address] Lymphocytes/100 WBC (Bld) 4.7 % Low 20.0-40.0 [facility] Comment on above: Performed By: #### B MP, CBC, ANEU, ADIFF, GFR, MDW, TROPHS ####[facility] [place], [place] [address] Monocyte, Absolute 0.8 10 3/mcL Normal 0.1-1.4 [facility] Comment on above: Performed By: #### B MP, CBC, ANEU, ADIFF, GFR, MDW, TROPHS ####[facility] [address] [place], [place] [address] Monocytes/100 WBC (Bld) 10.1 % Normal 2.0-13.0 [facility] Comment on above: Performed By: #### B MP, CBC, ANEU, ADIFF, GFR, MDW, TROPHS ####[facility] [place], [place] [address] Neutrophils/100 WBC (Bld) 80.5 % High 50.0-75.0 [facility] Comment on above: Performed By: #### B MP, CBC, ANEU, ADIFF, GFR, MDW, TROPHS ####[facility] [place], [place] [address] .GFRon 07-31-2024 Estimated Glomerular Filtration Rate 10 ml/min/1.73sqm Normal [facility] Comment on above: Result Comment: Stages of Chronic Kidney Disease (CKD) Stage Description eGFR(ml/min/1.73 sq.m.) CKD 1 Normal kidney function or >=90 normal kindney function with possible kidney damage (ex. Proteinuria) CKD 2 Kidney damage with mild loss 60-89 of kidney function CKD 3a Mild to moderate loss of kidney 45-59 function CKD 3b Moderate to severe loss of 30-44 of kindey function CKD 4 Severe loss of kidney function 15-29 CKD 5 Kidney failure <15 Note: (go live 2024) the eGFR calculation was updated to the 2020 CKD-EPI creatinine equation without a race factor to calculate the eGFR results. Performed By: #### B MP, CBC, ANEU, ADIFF, GFR, MDW, TROPHS ####[facility] [place], [place] [address] .MDWon 07-31-2024 Monocyte Distribution Width 23.91 High 0.00-20.00 [facility] Comment on above: Result Comment: For adults in ED, MDW>20.0 may be associated with a higher risk of sepsis during the first 12hrs of hospital admission Performed By: #### B MP, CBC, ANEU, ADIFF, GFR, MDW, TROPHS ####[place] [address] [place], [place] [address] .NEUABSon 07-31-2024 Neutrophil, Absolute 6.7 10 3/mcL Normal 2.3-8.1 [facility] Comment on above: Performed By: #### B MP, CBC, ANEU, ADIFF, GFR, MDW, TROPHS ####[facility] [place], [place] [address] BMPon 07-31-2024 BUN/Creatinine Ratio 7 ratio Normal 7-27 [facility] Comment on above: Performed By: #### B MP, CBC, ANEU, ADIFF, GFR, MDW, TROPHS ####[place] [address] [place], [place] [address] Calcium [Mass/Vol] 8.8 mg/dL Normal 8.4-10.2 [facility] Comment on above: Performed By: #### B MP, CBC, ANEU, ADIFF, GFR, MDW, TROPHS ####[place] [address] [place], [place] [address] Chloride [Moles/Vol] 101 mmol/L Normal 98-107 [facility] Comment on above: Performed By: #### B MP, CBC, ANEU, ADIFF, GFR, MDW, TROPHS ####[facility] [place], [place] [address] CO2 [Moles/Vol] 34 mmol/L High 22-29 [facility] Comment on above: Performed By: #### B MP, CBC, ANEU, ADIFF, GFR, MDW, TROPHS ####[facility] [address] [place], [place] [address] Creatinine [Mass/Vol] 4.90 mg/dL High 0.51-0.95 [facility] Comment on above: Performed By: #### B MP, CBC, ANEU, ADIFF, GFR, MDW, TROPHS ####[facility] [place] [place], [place] [address] Electrolyte Balance 4.0 mEq/L Normal 4.0-15.0 [facility] Comment on above: Performed By: #### B MP, CBC, ANEU, ADIFF, GFR, MDW, TROPHS ####[facility] [place] [place], [place] [address] Glucose [Mass/Vol] 168 mg/dL High 70-105 [facility] Comment on above: Performed By: #### B MP, CBC, ANEU, ADIFF, GFR, MDW, TROPHS ####[facility] [place] [place], [place] [address] Potassium [Moles/Vol] 4.4 mmol/L Normal 3.5-5.1 [facility] Comment on above: Performed By: #### B MP, CBC, ANEU, ADIFF, GFR, MDW, TROPHS ####[facility] [address] [place], [place] [address] Sodium [Moles/Vol] 139 mmol/L Normal 136-145 [facility] Comment on above: Performed By: #### B MP, CBC, ANEU, ADIFF, GFR, MDW, TROPHS ####[facility] [place] [place], [place] [address] Urea nitrogen [Mass/Vol] 34 mg/dL High 7-18 [facility] Comment on above: Performed By: #### B MP, CBC, ANEU, ADIFF, GFR, MDW, TROPHS ####[facility] [address] [place], [place] [address] CBCon 07-31-2024 Erythrocyte distribution width (RBC) [Ratio] 17.1 % High 11.5-15.5 [facility] Comment on above: Performed By: #### B MP, CBC, ANEU, ADIFF, GFR, MDW, TROPHS ####[facility] [address] [place], [place] [address] Hematocrit (Bld) [Volume fraction] 32.8 % Low 34.0-46.0 [facility] Comment on above: Performed By: #### B MP, CBC, ANEU, ADIFF, GFR, MDW, TROPHS ####[facility] [address] [place], [place] [address] Hgb 11.2 G/dL Low 12.0-16.0 [facility] Comment on above: Performed By: #### B MP, CBC, ANEU, ADIFF, GFR, MDW, TROPHS ####[facility] [address] [place] [id number] MCH (RBC) [Entitic mass] 33.5 pg High 27.0-33.0 [facility] Comment on above: Performed By: #### B MP, CBC, ANEU, ADIFF, GFR, MDW, TROPHS ####[place] [address] [place] [id number] MCHC 34.2 G/dL Normal 32.0-36.0 [facility] Comment on above: Performed By: #### B MP, CBC, ANEU, ADIFF, GFR, MDW, TROPHS ####[facility] [place] [id number] MCV (RBC) [Entitic vol] 98.1 fL Normal 80.0-99.0 [facility] Comment on above: Performed By: #### B MP, CBC, ANEU, ADIFF, GFR, MDW, TROPHS ####[facility] [address] [place] [id number] Platelet 149 10 3/mcL Low 150-450 [facility] Comment on above: Performed By: #### B MP, CBC, ANEU, ADIFF, GFR, MDW, TROPHS ####[facility] [address] [place] [address] Platelet mean volume (Bld) [Entitic vol] 10.9 fL High 6.6-10.5 [facility] Comment on above: Performed By: #### B MP, CBC, ANEU, ADIFF, GFR, MDW, TROPHS ####[facility] [address] [place], [place] [address] RBC 3.35 10 6/mcL Low 4.10-5.30 [facility] Comment on above: Performed By: #### B MP, CBC, ANEU, ADIFF, GFR, MDW, TROPHS ####[facility] [address] [place], [place] [address] WBC 8.3 10 3/mcL Normal 4.5-10.8 [facility] Comment on above: Performed By: #### B MP, CBC, ANEU, ADIFF, GFR, MDW, TROPHS ####[facility] [place], [place] [address] CBC W/Diff, Automatedon 05-0 4-2024 Absolute Lymph 0.58 X10 3/uL Low 0.83-4.51 [facility] Comment on above: Performed By: #### L 100.0100, L500.4050 ####[facility] [address] [place], [address] Absolute Neut 10.2 X10 3/uL High 2.0-7.7 [facility] Comment on above: Performed By: #### L 100.0100, L500.4050 ####[facility] [address] [place], [address] Basophils/100 WBC (Bld) 0.3 % Normal 0-1 [facility] Comment on above: Performed By: #### L 100.0100, L500.4050 ####[facility] [address] [facility] [place], [address] Eosinophils/100 WBC (Bld) 2.0 % Normal 0-5 [facility] Comment on above: Performed By: #### L 100.0100, L500.4050 ####[facility] [address], [address] Erythrocyte distribution width (RBC) [Ratio] 15.9 % High 11.6-14.6 [facility] Comment on above: Performed By: #### L 100.0100, L500.4050 ####[facility] [address] [place], [address] Hematocrit (Bld) [Volume fraction] 32.9 % Low 37-47 [facility] Comment on above: Performed By: #### L 100.0100, L500.4050 ####[facility] [address] [place], [address] Hemoglobin (Bld) [Mass/Vol] 10.9 g/dL Low 12.0-15.0 [facility] Comment on above: Performed By: #### L 100.0100, L500.4050 ####[facility] [address] [place], [address] IG% 0.500 Normal 0.0-0.9 [facility] Comment on above: Result Comment: IG% - Immature Granulocytes (promyelocytes, myelocytes andmetamyelocytes) > 1% indicates that a LEFT SHIFT is Present. Performed By: #### L 100.0100, L500.4050 ####[facility] [address] [place], [address] Lymphocytes/100 WBC (Bld) 4.9 % Low 19-41 [facility] Comment on above: Performed By: #### L 100.0100, L500.4050 ####[facility] [address] [place], [address] MCH (RBC) [Entitic mass] 33.1 pg High 27.0-32.0 [facility] Comment on above: Performed By: #### L 100.0100, L500.4050 ####[facility] [address] [place], [address] MCHC (RBC) [Mass/Vol] 33.1 g/dL Normal 32-36 [facility] Comment on above: Performed By: #### L 100.0100, L500.4050 ####[facility] [address] [place], [address] MCV (RBC) [Entitic vol] 100.0 fL High 81-99 [facility] Comment on above: Performed By: #### L 100.0100, L500.4050 ####[facility] [address] [place], [address] Monocytes/100 WBC (Bld) 6.5 % Normal 0-10 [facility] Comment on above: Performed By: #### L 100.0100, L500.4050 ####[facility] [address] [place], [address] Neutrophils/100 WBC (Bld) 85.8 % High 47-70 [facility] Comment on above: Performed By: #### L 100.0100, L500.4050 ####[facility] [address] [place], [address] Nucleated RBC (Bld) [#/Vol] 0 10*3/uL Normal 0-5 [facility] Comment on above: Performed By: #### L 100.0100, L500.4050 ####[facility] [address] [place], [address] Platelet mean volume (Bld) [Entitic vol] 12.6 fL High 6.2-12.0 [facility] Comment on above: Performed By: #### L 100.0100, L500.4050 ####[facility] [address] [place], [address] Platelets (Bld) [#/Vol] 175 10*3/uL Normal 150-450 [facility] Comment on above: Performed By: #### L 100.0100, L500.4050 ####[facility] [address] [place], [address] RBC (Bld) [#/Vol] 3.29 10*6/uL Low 4.2-5.4 [facility] Comment on above: Performed By: #### L 100.0100, L500.4050 ####[facility] [address] [place], [address] RDW SD 57.1 fl High 35.1-43.9 [facility] Comment on above: Performed By: #### L 100.0100, L500.4050 ####[facility] [address] [place], [address] WBC (Bld) [#/Vol] 11.9 10*3/uL High 4.4-11.0 [facility] Comment on above: Performed By: #### L 100.0100, L500.4050 ####[facility] [address] [place], [address] CVFLURVon 07-31-2024 FLU A PCR Negative Normal Negative [facility] Comment on above: Performed By: #### C VFLURV ####[place] [address] [place], [place] [address] FLU B PCR Negative Normal Negative [facility] Comment on above: Performed By: #### C VFLURV ####[place] [address] [place], [place] [address] RSV PCR Negative Normal Negative [facility] Comment on above: Performed By: #### C VFLURV ####[place] [address] [place], [place] [address] SARS-CoV-2 (COVID-19) RNA YANI+probe Ql (Unsp spec) Negative Normal Negative [facility] Comment on above: Result Comment: Resu lts from the Xpert Xpress CoV-2/Flu/RSV plus test should be correlated with the clinical history, epidemiological data, and other data available to the clinical evaluating the patient. Performance of the Xpert Xpress CoV-2/Flu/RSV plus test has only been established in nasopharyngeal swab specimen. Erroneous test results might occur from improper specimen collection, failure to follow the recommended sample collection, handling and storage procedures, technical error, or sample mix-up. False negative results may occur if a virus is present at a level below the analytical limit of detection. Viral nucleic acid may persist in vivo, independent of virus viability. Detection of analyte target(s) does not imply that the corresponding virus(es) are infectious or are the causative agents for clinical symptoms. Recent patient exposure to FluMist or other live attenuated influenza vaccines may cause inaccurate positive results. Performed By: #### C VFLURV ####[facility] [address] [place], [place] [address] Chest PA and Lateralon 07-31 Chest PA and Lateral Normal [facility] Comprehensive Metabolic Prof ilon 07-31-2024 Albumin [Mass/Vol] 3.6 g/dL Normal 3.5-5.0 [facility] Comment on above: Performed By: #### L 100.0100, L500.4050 ####[facility] [address] [place], [address] Albumin/Globulin [Mass ratio] 1.2 {ratio} Normal 0.9-2.4 [facility] Comment on above: Performed By: #### L 100.0100, L500.4050 ####[facility] [address] [place], [address] ALK PHOS 75 U/L Normal 35-104 [facility] Comment on above: Performed By: #### L 100.0100, L500.4050 ####[facility] [address] [facility] [place], [address] ALT [Catalytic activity/Vol] 21 U/L Normal <=34 [facility] Comment on above: Performed By: #### L 100.0100, L500.4050 ####[facility] [address] [place], [address] AST [Catalytic activity/Vol] 31 U/L Normal <=31 [facility] Comment on above: Performed By: #### L 100.0100, L500.4050 ####[facility] [address] [place], [address] Bilirubin [Mass/Vol] 0.56 mg/dL Normal 0.00-1.30 [facility] Comment on above: Performed By: #### L 100.0100, L500.4050 ####[facility] [address] [place], [address] BUN/CRE 6.5 RATIO Low 10-20 [facility] Comment on above: Performed By: #### L 100.0100, L500.4050 ####[facility] [address] [place], [address] Calcium [Mass/Vol] 8.6 mg/dL Normal 7.6-11.0 [facility] Comment on above: Performed By: #### L 100.0100, L500.4050 ####[facility] [address] [place], [address] Chloride [Moles/Vol] 96 mmol/L Low 98-108 [facility] Comment on above: Performed By: #### L 100.0100, L500.4050 ####[facility] [address] [place], [address] CO2 [Moles/Vol] 24.3 mmol/L Normal 21.0-32.0 [facility] Comment on above: Performed By: #### L 100.0100, L500.4050 ####[facility] [address] [place], [address] Creatinine [Mass/Vol] 5.93 mg/dL High 0.70-1.20 [facility] Comment on above: Performed By: #### L 100.0100, L500.4050 ####[facility] [address] [place], [address] ECRCL 11.94 ml/min Low 50-250 [facility] Comment on above: Performed By: #### L 100.0100, L500.4050 ####[facility] [address] [place], [address] GAP 15 Normal 5-15 [facility] Comment on above: Performed By: #### L 100.0100, L500.4050 ####[facility] [address] [place], [address] GFR/1.73 sq M.predicted among non-blacks MDRD (S/P/Bld) [Vol rate/Area] 8 mL/min/{1.73_m2} Low >60 [facility] Comment on above: Result Comment: mL/m in/1.73m2 CKD-EPI Creatinine Equation (2020) Performed By: #### L 100.0100, L500.4050 ####[facility] [id number] [place], [address] Globulin (S) [Mass/Vol] 2.9 g/dL Normal 2.2-4.2 [facility] Comment on above: Performed By: #### L 100.0100, L500.4050 ####[facility] [id number] [place], [address] Glucose [Mass/Vol] 224 mg/dL High 70-99 [facility] Comment on above: Performed By: #### L 100.0100, L500.4050 ####[facility] [address] [place], [address] Potassium [Moles/Vol] 4.6 mmol/L Normal 3.3-5.1 [facility] Comment on above: Performed By: #### L 100.0100, L500.4050 ####[facility] [facility] [address] [place], [address] Sodium [Moles/Vol] 135 mmol/L Normal 133-145 [facility] Comment on above: Performed By: #### L 100.0100, L500.4050 ####[facility] [address] [place], [address] T PROT 6.5 g/dL Normal 5.9-8.4 [facility] Comment on above: Performed By: #### L 100.0100, L500.4050 ####[facility] [address] [place], [address] Urea nitrogen [Mass/Vol] 39 mg/dL High 4-19 [facility] Comment on above: Performed By: #### L 100.0100, L500.4050 ####[facility] [address] [place], [address] Emergency Department Summary on 07-31-2024 Emergency Department Summary Normal [facility] H AND P Exam - Hospitaliston 07-31-2024 H&P Exam - Hospitalist Normal [facility] [id number] 07-31-2024 Natriuretic peptide B (Bld) [Mass/Vol] 5291 pg/mL High <=900 [facility] Comment on above: Result Comment: Hear t Failure Unlikely: < 300 pg/mLHeart Failure Likely< 50 Years: > 450 pg/mL50-75 Years: > 900 pg/mL>75 Years: > 1800 pg/mL Performed By: #### L 503.7500 ####[facility] [address] [place], [address] [id number] 07-31-2024 Procalcitonin 0.47 ng/mL High <=0.10 [facility] Comment on above: Result Comment: Inte rpretation:<0.10-0.25 ng/mL: Antibiotic therapy discouraged. Bacterialinfection unlikely.0.25-0.50 ng/mL: Antibiotic therapy encouraged. Bacterialinfection possible.>0.50 ng/mL: Antibiotic therapy strongly encouraged.Suggestive of presence of bacterial infection.PCT should always be interpreted in the clinical context ofthe patient. Therefore, clinicians should use the PCTresults in conjunction with other laboratory findings andclinical signs of the patient. Performed By: #### L 509.7001 ####[facility] [address] [place], [address] LABORATORYOrdered By: SYSTEM SYSTEM on 07-31-2024 Basophils (Bld) [#/Vol] 0.0 103/mcL Normal 0.0 - 0.3 10^3/mcL AO Workflow SS Basophils/100 WBC (Bld) 0.4 % Normal 0.0 - 2.5 % AO Workflow SS Calcium [Mass/Vol] 8.8 mg/dL Normal 8.4 - 10. 2 mg/dL AO ADM SS Chloride [Moles/Vol] 101 mmol/L Normal 98 - 10 7 mmol/L AO ADM SS CO2 [Moles/Vol] 34 mmol/L High 22 - 29 mmol/L AO ADM SS Creatinine [Mass/Vol] 4.90 mg/dL High 0.51 - 0.95 mg/dL AO ADM SS Electrolyte Balance 4.0 mEq/L Normal 4.0 - 15 .0 mEq/L AO ADM SS Eosinophil, Absolute 0.4 103/mcL Normal 0.0 - 0 .7 10^3/mcL AO Workflow SS Eosinophils/100 WBC (Bld) 4.3 % Normal 0.0 - 6.0 % AO Workflow SS Erythrocyte distribution width (RBC) [Ratio] 17.1 % High 11.5 - 15.5 % AO Workflow SS Estimated Glomerular Filtration Rate 10 ml/min/1.73sqm Invalid Interpretation Code AO Chemistry S Comment on above: Interpretive Data: Stages of Chronic Kidney Disease (CKD) Stage Description eGFR(ml/min/1.73 sq.m.) CKD 1 Normal kidney function or >=90 normal kindney function with possible kidney damage (ex. Proteinuria) CKD 2 Kidney damage with mild loss 60-89 of kidney function CKD 3a Mild to moderate loss of kidney 45-59 function CKD 3b Moderate to severe loss of 30-44 of kindey function CKD 4 Severe loss of kidney function 15-29 CKD 5 Kidney failure <15 Note: (go live 2024) the eGFR calculation was updated to the 2020 CKD-EPI creatinine equation without a race factor to calculate the eGFR results. Glucose [Mass/Vol] 168 mg/dL High 70 - 105 mg/dL AO ADM SS Hematocrit (Bld) [Volume fraction] 32.8 % Low 34.0 - 46.0 % AO Workflow SS Hemoglobin (Bld) [Mass/Vol] 11.2 G/dL Low 12.0 - 16.0 G/dL AO Workflow SS Lymphocytes (Bld) [#/Vol] 0.4 103/mcL Low 0.9 - 4.3 10^3/mcL AO Workflow SS Lymphocytes/100 WBC (Bld) 4.7 % Low 20.0 - 40.0 % AO Workflow SS MCH (RBC) [Entitic mass] 33.5 pg High 27.0 - 33.0 pg AO Workflow SS MCHC 34.2 G/dL Normal 32.0 - 36.0 G/dL AO Workflow SS MCV (RBC) [Entitic vol] 98.1 fL Normal 80.0 - 99.0 fL AO Workflow SS Monocyte distribution width Auto (Bld) [Entitic vol] 23.91 1 High 0.00 - 20.00 AO Workflow SS Comment on above: Result Comment: For adults in ED, MDW>20.0 may be associated with a higher risk of sepsis during the first 12hrs of hospital admission Monocytes (Bld) [#/Vol] 0.8 103/mcL Normal 0.1 - 1.4 10^3/mcL AO Workflow SS Monocytes/100 WBC (Bld) 10.1 % Normal 2.0 - 13.0 % AO Workflow SS Neutrophils (Bld) [#/Vol] 6.7 103/mcL Normal 2.3 - 8.1 10^3/mcL AO Workflow SS Neutrophils/100 WBC (Bld) 80.5 % High 50.0 - 75.0 % AO Workflow SS Platelet mean volume (Bld) [Entitic vol] 10.9 fL High 6.6 - 10.5 fL AO Workflow SS Platelets (Bld) [#/Vol] 149 103/mcL Low 150 - 450 10^3/mcL AO Workflow SS Potassium [Moles/Vol] 4.4 mmol/L Normal 3.5 - 5.1 mmol/L AO ADM SS RBC (Bld) [#/Vol] 3.35 106/mcL Low 4.10 - 5.3 0 10^6/mcL AO Workflow SS Sodium [Moles/Vol] 139 mmol/L Normal 136 - 145 mmol/L AO ADM SS Troponin I.cardiac DL <= 0.01 ng/mL [Mass/Vol] 16 ng/L Normal 0 - 51 ng/L AO ADM SS Comment on above: Interpretive Data: H igh Sensitive Troponin I Reference Ranges: Female: 0-51 ng/L Male: 0-76 ng/L Testing performed on Folloze using a homogeneous sandwich chemiluminescent immunoassay based on [employer] technology. Urea nitrogen [Mass/Vol] 34 mg/dL High 7 - 18 mg/dL AO ADM SS Urea nitrogen/Creatinine [Mass ratio] 7 ratio Normal 7 - 27 ratio AO ADM SS WBC (Bld) [#/Vol] 8.3 103/mcL Normal 4.5 - 10.8 10^3/mcL AO Workflow SS LABORATORYOrdered By: Jessica Peterson on 07-31-2024 FLUAV RNA YANI+probe Ql (Resp) Negative (07/31/24 3:40 AM) Normal Negative AO Auto Urine SS FLUBV RNA YANI+probe Ql (Resp) Negative (07/31/24 3:40 AM) Normal Negative AO Auto Urine SS RSV RNA YANI+probe Ql (Resp) Negative (07/31/24 3:40 AM) Normal Negative AO Auto Urine SS SARS-CoV-2 (COVID-19) RNA YANI+probe Ql (Resp) Negative 4 (07/31/24 3:40 AM) Normal Negative AO Auto Urine SS Comment on above: Interpretive Data: R esults from the Xpert Xpress CoV-2/Flu/RSV plus test should be correlated with the clinical history, epidemiological data, and other data available to the clinical evaluating the patient. Performance of the Xpert Xpress CoV-2/Flu/RSV plus test has only been established in nasopharyngeal swab specimen. Erroneous test results might occur from improper specimen collection, failure to follow the recommended sample collection, handling and storage procedures, technical error, or sample mix-up. False negative results may occur if a virus is present at a level below the analytical limit of detection. Viral nucleic acid may persist in vivo, independent of virus viability. Detection of analyte target(s) does not imply that the corresponding virus(es) are infectious or are the causative agents for clinical symptoms. Recent patient exposure to FluMist or other live attenuated influenza vaccines may cause inaccurate positive results. M100.678on 07-31-2024 M100.678 Pending SARS-CoV-2 (COVID 19) Negative INFLUENZA A Negative INFLUENZA B Negative RSV PCR Negative Normal [facility] Comment on above: Performed By: #### M 100.678 ####[facility] [address] [place], [address] Magnesiumon 07-31-2024 Magnesium [Mass/Vol] 2.0 mg/dL Normal 1.5-2.2 [facility] Comment on above: Order Comment: Comme nts: May add to ED labsComments: may add to ED labs Performed By: #### L 501.2300, L501.5200 ####[facility] [address] [place], [address] Phosphoruson 07-31-2024 Phosphate [Mass/Vol] 3.3 mg/dL Normal 2.7-4.5 [facility] Comment on above: Order Comment: Comme nts: May add to ED labsComments: may add to ED labs Performed By: #### L 501.2300, L501.5200 ####[facility] [address] [place], [address] TROPHSon 07-31-2024 High Sensitivity Troponin I 16 ng/L Normal 0-51 [facility] Comment on above: Result Comment: High Sensitive Troponin I Reference Ranges: Female: 0-51 ng/L Male: 0-76 ng/L Testing performed on Folloze using a homogeneous sandwich chemiluminescent immunoassay based on [employer] technology. Performed By: #### B MP, CBC, ANEU, ADJASON, GFR, MARCELLA, [facility] ####[address] [place], [place] [address] XR CHEST 1 VIEWon 07-31-2024 XR CHEST 1 VIEW ORIGINAL EXAMINATION: ONE XRAY VIEW OF THE CHEST 07/31/2024 4:00 am COMPARISON: Chest x-ray on 11/18/2023 HISTORY: ORDERING SYSTEM PROVIDED HISTORY: Reason for Exam: cough FINDINGS: The heart is mildly enlarged and unchanged in size. There is no acute lung infiltrate or pulmonary edema. No pleural fluid or pneumothorax is present. Bilateral lung infiltrates have resolved since 11/18/2023. IMPRESSION: 1. Mild cardiomegaly. 2. No acute cardiopulmonary process. Interpreted by: Rc Calzada MD Preliminary Report By: Rc Calzada MD Electronically signed By Rc Calzada MD Dictated Date: 07/31/2024 4:09:29 AM Prelim Date: 07/31/2024 4:10:24 AM Sign Date: 07/31/2024 4:10:24 AM Ordering Provider: TORRI Self [facility] .Auto Diffon 04-20-2024 Basophil, Absolute 0.1 10 3/mcL Normal 0.0-0.2 [facility] Comment on above: Performed By: #### A ALDO, TSH, LIPID, ADIFF, CBC, GFR, CMP ####[address] [address] Basophils/100 WBC (Bld) 0.8 % Normal 0.0-2.5 [facility] Comment on above: Performed By: #### A ALDO, TSH, LIPID, ADIFF, CBC, GFR, CMP ####[address] [place], [place] [address] Eosinophil, Absolute 0.3 10 3/mcL Normal 0.0-0.7 [facility] Comment on above: Performed By: #### A ALDO, TSH, LIPID, ADIFF, CBC, GFR, CMP ####[address] [address] Eosinophils/100 WBC (Bld) 4.6 % Normal 0.0-7.0 [facility] Comment on above: Performed By: #### A ALDO, TSH, LIPID, ADIFF, CBC, GFR, CMP ####[address] [address] Lymphocyte, Absolute 0.8 10 3/mcL Low 0.9-4.3 [facility] Comment on above: Performed By: #### A ALDO, TSH, LIPID, ADIFF, CBC, GFR, CMP ####[facility] [place], [place] [address] Lymphocytes/100 WBC (Bld) 11.9 % Low 20.0-40.0 [facility] Comment on above: Performed By: #### A ALDO, TSH, LIPID, ADIFF, CBC, GFR, CMP ####[facility] [place], [place] [address] Monocyte, Absolute 0.7 10 3/mcL Normal 0.1-1.4 [facility] Comment on above: Performed By: #### A ALDO, TSH, LIPID, ADIFF, CBC, GFR, CMP ####[address] [place], [place] [address] Monocytes/100 WBC (Bld) 10.7 % Normal 2.0-13.0 [facility] Comment on above: Performed By: #### A ALDO, TSH, LIPID, ADIFF, CBC, GFR, CMP ####[address] [address] Neutrophils/100 WBC (Bld) 72.0 % Normal 50.0-75.0 [facility] Comment on above: Performed By: #### A ALDO, TSH, LIPID, ADIFF, CBC, GFR, CMP ####[address] [place], [place] [address] .GFRon 04-20-2024 GFR 10 ml/min/1.73sqm Normal [facility] Comment on above: Result Comment: GFR Population mean for , Non- Americans Ages 20-29 = 116 mL/min/1.73 sq.m. Ages 30-39 = 107 mL/min/1.73 sq.m. Ages 40-49 = 99 mL/min/1.73 sq.m. Ages 50-59 = 93 mL/min/1.73 sq.m. Ages 60-69 = 85 mL/min/1.73 sq.m. Ages 70+ = 75 mL/min/1.73 sq.m. Chronic Kidney Disease: Less than 60 mL/min/1.73 square meters End Stage Renal Disease: Less than 15 mL/min/1.73 square meters Performed By: #### A ALDO, TSH, LIPID, ADIFF, CBC, GFR, CMP ####[facility] [place], [place] [address] GFR Non- 9 ml/min/1.73sqm Normal [facility] Comment on above: Result Comment: GFR Population mean for , Non- Americans Ages 20-29 = 116 mL/min/1.73 sq.m. Ages 30-39 = 107 mL/min/1.73 sq.m. Ages 40-49 = 99 mL/min/1.73 sq.m. Ages 50-59 = 93 mL/min/1.73 sq.m. Ages 60-69 = 85 mL/min/1.73 sq.m. Ages 70+ = 75 mL/min/1.73 sq.m. Chronic Kidney Disease: Less than 60 mL/min/1.73 square meters End Stage Renal Disease: Less than 15 mL/min/1.73 square meters Performed By: #### A ALDO, TSH, LIPID, ADIFF, CBC, GFR, CMP ####[address] [place], [place] [address] .NEUABSon 04-20-2024 Neutrophil, Absolute 4.8 10 3/mcL Normal 2.3-8.1 [facility] Comment on above: Performed By: #### A ALDO, TSH, LIPID, ADIFF, CBC, GFR, CMP ####[facility] [place], [place] [address] CBCon 04-20-2024 Erythrocyte distribution width (RBC) [Ratio] 18.6 % High 11.5-15.5 [facility] Comment on above: Order Comment: 6 mon ths Performed By: #### A ALDO, TSH, LIPID, ADIFF, CBC, GFR, CMP ####[address] [place], [place] [address] Hematocrit (Bld) [Volume fraction] 34.9 % Normal 34.0-46.0 [facility] Comment on above: Order Comment: 6 mon ths Performed By: #### A ALDO, TSH, LIPID, ADIFF, CBC, GFR, CMP ####[facility] [place], [place] [address] Hgb 11.9 G/dL Low 12.0-16.0 [facility] Comment on above: Order Comment: 6 mon ths Performed By: #### A ALDO, TSH, LIPID, ADIFF, CBC, GFR, CMP ####[facility] [place], [place] [address] MCH (RBC) [Entitic mass] 32.6 pg Normal 27.0-33.0 [facility] Comment on above: Order Comment: 6 mon ths Performed By: #### A ALDO, TSH, LIPID, ADIFF, CBC, GFR, CMP ####[address] [place], [place] [address] MCHC 34.0 G/dL Normal 32.0-36.0 [facility] Comment on above: Order Comment: 6 mon ths Performed By: #### A ALDO, TSH, LIPID, ADIFF, CBC, GFR, CMP ####[facility] [address] [place], [place] [address] MCV (RBC) [Entitic vol] 96.0 fL Normal 80.0-99.0 [facility] Comment on above: Order Comment: 6 mon ths Performed By: #### A ALDO, TSH, LIPID, ADIFF, CBC, GFR, CMP ####[facility] [address] [place], [place] [address] Platelet 146 10 3/mcL Low 150-450 [facility] Comment on above: Order Comment: 6 mon ths Performed By: #### A ALDO, TSH, LIPID, ADIFF, CBC, GFR, CMP ####[facility] [address] [place], [place] [address] Platelet mean volume (Bld) [Entitic vol] 10.7 fL High 6.6-10.5 [facility] Comment on above: Order Comment: 6 mon ths Performed By: #### A ALDO, TSH, LIPID, ADIFF, CBC, GFR, CMP ####[facility] [place], [place] [address] RBC 3.64 10 6/mcL Low 4.10-5.30 [facility] Comment on above: Order Comment: 6 mon ths Performed By: #### A ALDO, TSH, LIPID, ADIFF, CBC, GFR, CMP ####[facility] [place], [place] [address] WBC 6.7 10 3/mcL Normal 4.5-10.8 [facility] Comment on above: Order Comment: 6 mon ths Performed By: #### A ALDO, TSH, LIPID, ADIFF, CBC, GFR, CMP ####[address] [address] CMPon 04-20-2024 Albumin Level 3.2 G/dL Low 3.5-5.0 [facility] Comment on above: Order Comment: 6 mon ths Performed By: #### A ALDO, TSH, LIPID, ADIFF, CBC, GFR, CMP ####[facility] [place], [place] [address] Albumin/Globulin [Mass ratio] 0.9 {ratio} Low 1.1-2.5 [facility] Comment on above: Order Comment: 6 mon ths Performed By: #### A ALDO, TSH, LIPID, ADIFF, CBC, GFR, CMP ####[facility] [place], [place] [address] ALP [Catalytic activity/Vol] 87 U/L Normal 40-135 [facility] Comment on above: Order Comment: 6 mon ths Performed By: #### A ALDO, TSH, LIPID, ADIFF, CBC, GFR, CMP ####[facility] [place] [address] ALT [Catalytic activity/Vol] 26 U/L Normal 14-59 [facility] Comment on above: Order Comment: 6 mon ths Performed By: #### A ALDO, TSH, LIPID, ADIFF, CBC, GFR, CMP ####[address] [place], [place] [address] AST [Catalytic activity/Vol] 23 U/L Normal 10-40 [facility] Comment on above: Order Comment: 6 mon ths Performed By: #### A ALDO, TSH, LIPID, ADIFF, CBC, GFR, CMP ####[facility] [place], [place] [address] Bili Total 0.6 mg/dL Normal 0.2-1.0 [facility] Comment on above: Order Comment: 6 mon ths Result Comment: Use of this assay is not recommended for patients undergoing treatment with eltrombopag due to the potential for falsely elevated results. Performed By: #### A ALDO, TSH, LIPID, ADIFF, CBC, GFR, CMP ####[address] [place], [place] [address] BUN/Creatinine Ratio 8 ratio Normal 7-27 [facility] Comment on above: Order Comment: 6 mon ths Performed By: #### A ALDO, TSH, LIPID, ADIFF, CBC, GFR, CMP ####[address] [place], [place] [address] Calcium [Mass/Vol] 8.8 mg/dL Normal 8.4-10.2 [facility] Comment on above: Order Comment: 6 mon ths Performed By: #### A ALDO, TSH, LIPID, ADIFF, CBC, GFR, CMP ####[address] [address] Chloride [Moles/Vol] 100 mmol/L Normal 98-107 [facility] Comment on above: Order Comment: 6 mon ths Performed By: #### A ALDO, TSH, LIPID, ADIFF, CBC, GFR, CMP ####[address] [place], [place] [address] CO2 [Moles/Vol] 34 mmol/L High 22-29 [facility] Comment on above: Order Comment: 6 mon ths Performed By: #### A ALDO, TSH, LIPID, ADIFF, CBC, GFR, CMP ####[address] [place], [place] [address] Creatinine [Mass/Vol] 5.17 mg/dL High 0.55-1.02 [facility] Comment on above: Order Comment: 6 mon ths Result Comment: Test ing performed on Siemens Dimension EXL analyzer using a modified kinetic Yolie technique. Performed By: #### A ALDO, TSH, LIPID, ADIFF, CBC, GFR, CMP ####[facility] [place], [place] [address] Electrolyte Balance 6.0 mEq/L Normal 4.0-15.0 [facility] Comment on above: Order Comment: 6 mon ths Performed By: #### A ALDO, TSH, LIPID, ADIFF, CBC, GFR, CMP ####[address] [place], [place] [address] Globulin 3.7 G/dL Normal [facility] Comment on above: Order Comment: 6 mon ths Performed By: #### A ALDO, TSH, LIPID, ADIFF, CBC, GFR, CMP ####[address] [place], [place] [address] Glucose [Mass/Vol] 176 mg/dL High 70-105 [facility] Comment on above: Order Comment: 6 mon ths Performed By: #### A ALDO, TSH, LIPID, ADIFF, CBC, GFR, CMP ####[address] [address] Potassium [Moles/Vol] 4.2 mmol/L Normal 3.5-5.1 [facility] Comment on above: Order Comment: 6 mon ths Performed By: #### A ALDO, TSH, LIPID, ADIFF, CBC, GFR, CMP ####[address] [place], [place] [address] Sodium [Moles/Vol] 140 mmol/L Normal 136-145 [facility] Comment on above: Order Comment: 6 mon ths Performed By: #### A ALDO, TSH, LIPID, ADIFF, CBC, GFR, CMP ####[address] [place], [place] [address] Total Protein 6.9 G/dL Normal 6.4-8.2 [facility] Comment on above: Order Comment: 6 mon ths Performed By: #### A ALDO, TSH, LIPID, ADIFF, CBC, GFR, CMP ####[address] [place], [place] [address] Urea nitrogen [Mass/Vol] 43 mg/dL High 7-18 [facility] Comment on above: Order Comment: 6 thu ths Performed By: #### A ALDO, TSH, LIPID, ADIFF, CBC, GFR, CMP ####[facility] [place], [place] [address] LABORATORYOrdered By: SYSTEM SYSTEM on 04-20-2024 Albumin BCP dye [Mass/Vol] 3.2 G/dL Low 3.5 - 5.0 G/dL AO ADM SS Albumin/Globulin [Mass ratio] 0.9 {ratio} Low 1.1 - 2.5 ratio AO ADM SS ALP [Catalytic activity/Vol] 87 U/L Normal 40 - 135 U/L AO ADM SS ALT With P-5'-P [Catalytic activity/Vol] 26 U/L Normal 14 - 59 U/L AO ADM SS AST With P-5'-P [Catalytic activity/Vol] 23 U/L Normal 10 - 40 U/L AO ADM SS Basophils (Bld) [#/Vol] 0.1 103/mcL Normal 0.0 - 0.2 10^3/mcL AO Workflow SS Basophils/100 WBC (Bld) 0.8 % Normal 0.0 - 2.5 % AO Workflow SS Bilirubin [Mass/Vol] 0.6 mg/dL Normal 0.2 - 1 .0 mg/dL AO ADM SS Comment on above: Interpretive Data: U se of this assay is not recommended for patients undergoing treatment with eltrombopag due to the potential for falsely elevated results. Calcium [Mass/Vol] 8.8 mg/dL Normal 8.4 - 10. 2 mg/dL AO ADM SS Chloride [Moles/Vol] 100 mmol/L Normal 98 - 10 7 mmol/L AO ADM SS CO2 [Moles/Vol] 34 mmol/L High 22 - 29 mmol/L AO ADM SS Creatinine [Mass/Vol] 5.17 mg/dL High 0.55 - 1.02 mg/dL AO ADM SS Comment on above: Interpretive Data: T esting performed on [employer]ash[employer] Dimension EXL analyzer using a modified kinetic Yolie technique. Electrolyte Balance 6.0 mEq/L Normal 4.0 - 15 .0 mEq/L AO ADM SS Eosinophil, Absolute 0.3 103/mcL Normal 0.0 - 0 .7 10^3/mcL AO Workflow SS Eosinophils/100 WBC (Bld) 4.6 % Normal 0.0 - 7.0 % AO Workflow SS Erythrocyte distribution width (RBC) [Ratio] 18.6 % High 11.5 - 15.5 % AO Workflow SS GFR/1.73 sq M.predicted among blacks MDRD (S/P/Bld) [Vol rate/Area] 10 ml/min/1.73sqm Invalid Interpretation Code AO Chemistry S Comment on above: Interpretive Data: GFR Population mean for , Non- Americans Ages 20-29 = 116 mL/min/1.73 sq.m. Ages 30-39 = 107 mL/min/1.73 sq.m. Ages 40-49 = 99 mL/min/1.73 sq.m. Ages 50-59 = 93 mL/min/1.73 sq.m. Ages 60-69 = 85 mL/min/1.73 sq.m. Ages 70+ = 75 mL/min/1.73 sq.m. Chronic Kidney Disease: Less than 60 mL/min/1.73 square meters End Stage Renal Disease: Less than 15 mL/min/1.73 square meters GFR/1.73 sq M.predicted among non-blacks MDRD (S/P/Bld) [Vol rate/Area] 9 ml/min/1.73sqm Invalid Interpretation Code AO Chemistry S Comment on above: Interpretive Data: GFR Population mean for , Non- Americans Ages 20-29 = 116 mL/min/1.73 sq.m. Ages 30-39 = 107 mL/min/1.73 sq.m. Ages 40-49 = 99 mL/min/1.73 sq.m. Ages 50-59 = 93 mL/min/1.73 sq.m. Ages 60-69 = 85 mL/min/1.73 sq.m. Ages 70+ = 75 mL/min/1.73 sq.m. Chronic Kidney Disease: Less than 60 mL/min/1.73 square meters End Stage Renal Disease: Less than 15 mL/min/1.73 square meters Globulin 3.7 G/dL Invalid Interpretation Code AO ADM SS Glucose [Mass/Vol] 176 mg/dL High 70 - 105 mg/dL AO ADM SS Hematocrit (Bld) [Volume fraction] 34.9 % Normal 34.0 - 46.0 % AO Workflow SS Hemoglobin (Bld) [Mass/Vol] 11.9 G/dL Low 12.0 - 16.0 G/dL AO Workflow SS Lymphocytes (Bld) [#/Vol] 0.8 103/mcL Low 0.9 - 4.3 10^3/mcL AO Workflow SS Lymphocytes/100 WBC (Bld) 11.9 % Low 20.0 - 40.0 % AO Workflow SS MCH (RBC) [Entitic mass] 32.6 pg Normal 27.0 - 33.0 pg AO Workflow SS MCHC 34.0 G/dL Normal 32.0 - 36.0 G/dL AO Workflow SS MCV (RBC) [Entitic vol] 96.0 fL Normal 80.0 - 99.0 fL AO Workflow SS Monocytes (Bld) [#/Vol] 0.7 103/mcL Normal 0.1 - 1.4 10^3/mcL AO Workflow SS Monocytes/100 WBC (Bld) 10.7 % Normal 2.0 - 13.0 % AO Workflow SS Neutrophils (Bld) [#/Vol] 4.8 103/mcL Normal 2.3 - 8.1 10^3/mcL AO Workflow SS Neutrophils/100 WBC (Bld) 72.0 % Normal 50.0 - 75.0 % AO Workflow SS Platelet mean volume (Bld) [Entitic vol] 10.7 fL High 6.6 - 10.5 fL AO Workflow SS Platelets (Bld) [#/Vol] 146 103/mcL Low 150 - 450 10^3/mcL AO Workflow SS Potassium [Moles/Vol] 4.2 mmol/L Normal 3.5 - 5.1 mmol/L AO ADM SS Protein [Mass/Vol] 6.9 G/dL Normal 6.4 - 8.2 G/dL AO ADM SS RBC (Bld) [#/Vol] 3.64 106/mcL Low 4.10 - 5.3 0 10^6/mcL AO Workflow SS Sodium [Moles/Vol] 140 mmol/L Normal 136 - 145 mmol/L AO ADM SS TSH Qn 3.85 m[IU]/L High 0.36 - 3.74 mcIU/mL AO ADM SS Urea nitrogen [Mass/Vol] 43 mg/dL High 7 - 18 mg/dL AO ADM SS Urea nitrogen/Creatinine [Mass ratio] 8 ratio Normal 7 - 27 ratio AO ADM SS WBC (Bld) [#/Vol] 6.7 103/mcL Normal 4.5 - 10.8 10^3/mcL AO Workflow SS LABORATORYOrdered By: Regine Tompkins on 04-20-2024 Cholesterol [Mass/Vol] 116 mg/dL Normal 0 - 2 00 mg/dL AO ADM SS Comment on above: Interpretive Data: C holesterol Reference Interval: Less than 200 Desirable 200-239 Borderline high risk 240 and above High risk Cholesterol in HDL [Mass/Vol] 39 mg/dL Low 40 - 60 mg/dL AO ADM SS Cholesterol in LDL [Mass/Vol] 51 mg/dL Normal 0 - 130 mg/dL AO ADM SS Triglyceride [Mass/Vol] 129 mg/dL Normal 0 - 150 mg/dL AO ADM SS Comment on above: Interpretive Data: T riglyceride Reference Interval: Less than 150 Normal 150-199 Borderline high risk 200-499 High risk 500 or higher Very high risk LIPIDon 04-20-2024 Cholesterol [Mass/Vol] 116 mg/dL Normal 0-200 [facility] Comment on above: Order Comment: 6 mon ths Result Comment: Chol esterol Reference Interval: Less than 200 Desirable 200-239 Borderline high risk 240 and above High risk Performed By: #### A ALDO, TSH, LIPID, ADIFF, CBC, GFR, CMP ####[facility] [address] [place], [place] [address] Cholesterol in HDL [Mass/Vol] 39 mg/dL Low 40-60 [facility] Comment on above: Order Comment: 6 mon ths Performed By: #### A ALDO, TSH, LIPID, ADIFF, CBC, GFR, CMP ####[facility] [address] [place], [place] [address] Cholesterol in LDL [Mass/Vol] 51 mg/dL Normal 0-130 [facility] Comment on above: Order Comment: 6 mon ths Performed By: #### A ALDO, TSH, LIPID, ADIFF, CBC, GFR, CMP ####[facility] [place], [place] [address] Triglyceride [Mass/Vol] 129 mg/dL Normal 0-150 [facility] Comment on above: Order Comment: 6 mon ths Result Comment: Trig lyceride Reference Interval: Less than 150 Normal 150-199 Borderline high risk 200-499 High risk 500 or higher Very high risk Performed By: #### A ALDO, TSH, LIPID, ADIFF, CBC, GFR, CMP ####[facility]sey [address] [place], [place] [address] TSHon 04-20-2024 TSH Qn 3.85 m[IU]/L High 0.36-3.74 [facility] Comment on above: Order Comment: 6 thus Performed By: #### A ALDO, TSH, LIPID, ADIFF, CBC, GFR, CMP ####[facility] [address] [place], [place] [address] CBC W/Diff, Automatedon 02-27 Absolute Lymph 0.64 X10 3/uL Low 0.83-4.51 [facility] Comment on above: Performed By: #### L 100.0100, L500.4050 ####[facility] [address] [place], [address] Absolute Neut 7.4 X10 3/uL Normal 2.0-7.7 [facility] Comment on above: Performed By: #### L 100.0100, L500.4050 ####[facility] [address] [place], [address] Basophils/100 WBC (Bld) 0.3 % Normal 0-1 [facility] Comment on above: Performed By: #### L 100.0100, L500.4050 ####[facility] [address] [place], [address] Eosinophils/100 WBC (Bld) 2.1 % Normal 0-5 [facility] Comment on above: Performed By: #### L 100.0100, L500.4050 ####[facility] [address] [place], [address] Erythrocyte distribution width (RBC) [Ratio] 15.9 % High 11.6-14.6 [facility] Comment on above: Performed By: #### L 100.0100, L500.4050 ####[facility] [address] [place], [address] Hematocrit (Bld) [Volume fraction] 36.8 % Low 37-47 [facility] Comment on above: Performed By: #### L 100.0100, L500.4050 ####[facility] [address] [place], [address] Hemoglobin (Bld) [Mass/Vol] 12.3 g/dL Normal 12.0-15.0 [facility] Comment on above: Performed By: #### L 100.0100, L500.4050 ####[facility] [address] [place], [address] IG% 0.400 Normal 0.0-0.9 [facility] Comment on above: Result Comment: IG% - Immature Granulocytes (promyelocytes, myelocytes andmetamyelocytes) > 1% indicates that a LEFT SHIFT is Present. Performed By: #### L 100.0100, L500.4050 ####[facility] [address] [place], [address] Lymphocytes/100 WBC (Bld) 6.9 % Low 19-41 [facility] Comment on above: Performed By: #### L 100.0100, L500.4050 ####[facility] [address] [place], [address] MCH (RBC) [Entitic mass] 31.1 pg Normal 27.0-32.0 [facility] Comment on above: Performed By: #### L 100.0100, L500.4050 ####[facility] [address] [place], [address] MCHC (RBC) [Mass/Vol] 33.4 g/dL Normal 32-36 [facility] Comment on above: Performed By: #### L 100.0100, L500.4050 ####[facility] [address] [place], [address] MCV (RBC) [Entitic vol] 93.2 fL Normal 81-99 [facility] Comment on above: Performed By: #### L 100.0100, L500.4050 ####[facility] [address] [place], [address] Monocytes/100 WBC (Bld) 11.2 % High 0-10 [facility] Comment on above: Performed By: #### L 100.0100, L500.4050 ####[facility] [address] [place], [address] Neutrophils/100 WBC (Bld) 79.1 % High 47-70 [facility] Comment on above: Performed By: #### L 100.0100, L500.4050 ####[facility] [address] [place], [address] Nucleated RBC (Bld) [#/Vol] 0 10*3/uL Normal 0-5 [facility] Comment on above: Performed By: #### L 100.0100, L500.4050 ####[facility] [address] [place], [address] Platelet mean volume (Bld) [Entitic vol] 12.1 fL High 6.2-12.0 [facility] Comment on above: Performed By: #### L 100.0100, L500.4050 ####[facility] [address] [place], [address] Platelets (Bld) [#/Vol] 122 10*3/uL Low 150-450 [facility] Comment on above: Performed By: #### L 100.0100, L500.4050 ####[facility] [address] [place], [address] RBC (Bld) [#/Vol] 3.95 10*6/uL Low 4.2-5.4 [facility] Comment on above: Performed By: #### L 100.0100, L500.4050 ####[facility] [address] [place], [address] RDW SD 54.2 fl High 35.1-43.9 [facility] Comment on above: Performed By: #### L 100.0100, L500.4050 ####[facility] [address] [place], [address] WBC (Bld) [#/Vol] 9.3 10*3/uL Normal 4.4-11.0 [facility] Comment on above: Performed By: #### L 100.0100, L500.4050 ####[facility] [address] [place], [address] Chest PA and Lateralon 03-14 Chest PA and Lateral Normal [facility] Comprehensive Metabolic Prof ilon 03-14-2024 Albumin [Mass/Vol] 3.3 g/dL Normal 3.2-5.0 [facility] Comment on above: Performed By: #### L 100.0100, L500.4050 ####[facility] [address] [place], [address] Albumin/Globulin [Mass ratio] 0.9 {ratio} Normal 0.9-2.4 [facility] Comment on above: Performed By: #### L 100.0100, L500.4050 ####[facility] [address] [place], [address] ALK P 86 U/L Normal 45-117 [facility] Comment on above: Performed By: #### L 100.0100, L500.4050 ####[facility] [address] [place], [address] ALT [Catalytic activity/Vol] 34 U/L Normal 13-56 [facility] Comment on above: Performed By: #### L 100.0100, L500.4050 ####[facility] [address] [place], [address] AST [Catalytic activity/Vol] 32 U/L Normal 15-37 [facility] Comment on above: Performed By: #### L 100.0100, L500.4050 ####[facility] [address] [place], [address] Bilirubin [Mass/Vol] 0.80 mg/dL Normal 0.20-1.00 [facility] Comment on above: Result Comment: For patients on eltrombopag therapy, use of Dimension [place] TBIL is not recommended. Performed By: #### L 100.0100, L500.4050 ####[facility] [address] [place], [address] BUN/CRE 8.3 RATIO Low 10-20 [facility] Comment on above: Performed By: #### L 100.0100, L500.4050 ####[facility] [address] [place], [address] CA,Total 8.7 mg/dL Normal 8.5-10.1 [facility] Comment on above: Performed By: #### L 100.0100, L500.4050 ####[facility] [address] [place], [address] Chloride [Moles/Vol] 95 mmol/L Low 98-107 [facility] Comment on above: Performed By: #### L 100.0100, L500.4050 ####[facility] [address] [place], [address] CO2 [Moles/Vol] 27.0 mmol/L Normal 21.0-32.0 [facility] Comment on above: Performed By: #### L 100.0100, L500.4050 ####[facility] [address] [place], [address] Creatinine [Mass/Vol] 7.81 mg/dL Invalid Interpretation Code 0.55-1.02 [facility] Comment on above: Result Comment: Naresh ical Result(s) Called at: 11:21:34 03/14/2024 by:Jayla jane TO PATRICIA. Results read back by same.The validity of the calculated GFR GFRAA in patients over70 years has not been determined. Clinical correlation isessential. Performed By: #### L 100.0100, L500.4050 ####[facility] [address] [place], [address] ECRCL 8.77 ml/min Normal [facility] Comment on above: Performed By: #### L 100.0100, L500.4050 ####[facility] [address] [place], [address] EST GFR - AA 7 mL/min Low >60 [facility] Comment on above: Result Comment: Afri can Czech GFR Calc Performed By: #### L 100.0100, L500.4050 ####[facility] [address] [place], [address] GAP 11 Normal 5-15 [facility] Comment on above: Performed By: #### L 100.0100, L500.4050 ####[facility] [address] [place], [address] GFR/1.73 sq M.predicted among non-blacks MDRD (S/P/Bld) [Vol rate/Area] 6 mL/min/{1.73_m2} Low >60 [facility] Comment on above: Result Comment: Non- GFR Calc Performed By: #### L 100.0100, L500.4050 ####[facility] [address] [place], [address] Globulin (S) [Mass/Vol] 3.5 g/dL Normal 2.2-4.2 [facility] Comment on above: Performed By: #### L 100.0100, L500.4050 ####[facility] [address] [place], [address] Glucose [Mass/Vol] 253 mg/dL High 74-106 [facility] Comment on above: Result Comment: Gluc ose result greater than or equal to 200 mg/dLsuggests DIABETES MELLITUS per A.D.A. criteria. Performed By: #### L 100.0100, L500.4050 ####[facility] [address] [place], [address] Potassium [Moles/Vol] 4.5 mmol/L Normal 3.5-5.1 [facility] Comment on above: Performed By: #### L 100.0100, L500.4050 ####[facility] [address] [place], [address] Sodium [Moles/Vol] 133 mmol/L Low 136-145 [facility] Comment on above: Performed By: #### L 100.0100, L500.4050 ####[facility] [address] [place], [address] T PROT 6.8 g/dL Normal 6.4-8.2 [facility] Comment on above: Performed By: #### L 100.0100, L500.4050 ####[facility] [address] [place], [address] Urea nitrogen [Mass/Vol] 65 mg/dL High 7-18 [facility] Comment on above: Performed By: #### L 100.0100, L500.4050 ####[facility] [address] [place], [address] Emergency Department Summary on 03-14-2024 Emergency Department Summary Normal [facility] Urinalysis, Completeon 03-14 BACTERIA 1+ /hpf Normal None Seen [facility] Comment on above: Order Comment: COLLE CTOR TO SPECIFY Performed By: #### L 400.0001 ####[facility] [address] [place], [address] EPI,SQUAMOUS 0-5 SEEN Normal 5-10 [facility] Comment on above: Order Comment: [facility] CTOR TO SPECIFY Performed By: #### L 400.0001 ####[facility] [address] [place], [address] Mucus Ql (Urine sed) 1+ /hpf Normal [facility] Comment on above: Order Comment: [facility] CTOR TO SPECIFY Performed By: #### L 400.0001 ####[facility] [address] [place], [address] RBC 0-5 SEEN Normal 0-5 [facility] Comment on above: Order Comment: [facility] CTOR TO SPECIFY Performed By: #### L 400.0001 ####[facility] [address] [place], [address] WBC 0-5 SEEN Normal 0-5 [facility] Comment on above: Order Comment: [facility] CTOR TO SPECIFY Performed By: #### L 400.0001 ####[facility] [address] [place], [address] M100.678on 03-13-[address] [facility] Comment on above: Performed By: #### M 100.678 ####[facility] [address] [place], [address] Chest PA and Lateralon 03-12 Chest PA and Lateral Normal [facility] Emergency Department Summary on 03-12-2024 Emergency Department Summary Normal [facility] BD BONE DENSITY DEXA AXIAL S KELETONon 01-21-2024 BD BONE DENSITY DEXA AXIAL SKELETON ORIGINAL EXAMINATION: BONE CPCBQADNRCTZ82/23/2024 2:00 pm TECHNIQUE: Dual energy bone densitometry lumbar spine and left hip. COMPARISON: None HISTORY: Reason for Exam: Osteoporosis Screening FINDINGS: L1-L4: BMD= 1.111 g/cm2 T score= 0.6 Left femoral neck: BMD= 0.757 g/cm2 T score= -0.8 Left hip: BMD= 1.129 g/cm2 T score= 1.5 FRAX score: Not calculated. The OF f/k/a NOF recommends that FDA-approved medical therapies be considered in post-menopausal women and men age >/= 50 years with a: * Hip or vertebral fracture, or * T-score of /= 20% for major osteoporotic fractures or * >/= 3% for hip fractures All treatment decisions require clinical judgement and consideration of individual patient factors, including patient preferences, comorbidities, previous drug use, risk factors not captured in the FRAX registered model (e.g., frailty, falls, vitamin D deficiency, increased bone turnover, interval significant decline in bone density) and possible under- or over-estimation of fracture risk by FRAX. IMPRESSION: Normal bone mineral density. Interpreted by: Janie Mantilla MD Preliminary Report By: Janie Mantilla MD Electronically signed By Janie Mantilla MD Dictated Date: 01/21/2024 12:38:49 PM Prelim Date: 01/21/2024 12:39:55 PM Sign Date: 01/21/2024 12:39:55 PM Ordering Provider: DENISSE Self [facility] CBC-Complete Blood Cnt No Di ffon 12-19-2023 HCT Normal 37-47 [facility] Comment on above: Result Comment: Canc elled via OM: Order cancelled - Patient discharged Performed By: #### L 100.0500 ####[facility] [address] [place], [place], [address] HGB Normal 12.0-15.0 [facility] Comment on above: Result Comment: Canc elled via OM: Order cancelled - Patient discharged Performed By: #### L 100.0500 ####[facility] [address] [place], [place], [id number] MCH Normal 27.0-32.0 [facility] Comment on above: Result Comment: Canc elled via OM: Order cancelled - Patient discharged Performed By: #### L 100.0500 ####[facility] [address] [place], [address] MCHC Normal 32-36 [facility] Comment on above: Result Comment: Canc elled via OM: Order cancelled - Patient discharged Performed By: #### L 100.0500 ####[facility] [address] [place], [address] MCV Normal 81-99 [facility] Comment on above: Result Comment: Canc elled via OM: Order cancelled - Patient discharged Performed By: #### L 100.0500 ####[facility] [address] [place], [address] PLT Normal 150-450 [facility] Comment on above: Result Comment: Canc elled via OM: Order cancelled - Patient discharged Performed By: #### L 100.0500 ####[facility] [address] [place], [address] RBC Normal 4.2-5.4 [facility] Comment on above: Result Comment: Canc elled via OM: Order cancelled - Patient discharged Performed By: #### L 100.0500 ####[facility] [address] [place], [address] RDW CV Normal 11.6-14.6 [facility] Comment on above: Result Comment: Canc elled via OM: Order cancelled - Patient discharged Performed By: #### L 100.0500 ####[facility] [address] [place], [address] RDW SD Normal 35.1-43.9 [facility] Comment on above: Result Comment: Canc elled via OM: Order cancelled - Patient discharged Performed By: #### L 100.0500 ####[facility] [address] [place], [address] WBC Normal 4.4-11.0 [facility] Comment on above: Result Comment: Canc elled via OM: Order cancelled - Patient discharged Performed By: #### L 100.0500 ####[facility] [address] [place], [address] Culture, Blood (WB)on 2023 CUB No growth in 5 days. Normal [facility] Comment on above: Performed By: #### L 503.6005, M200.1000 ####[facility] [address] [place], [address] CBC-Complete Blood Cnt No Di ffon 12-18-2023 HCT Normal 37-47 [facility] Comment on above: Result Comment: DR Jordan ANCELLED Performed By: #### L 100.0500, L500.4050 ####[facility] [address] [place], [address] HGB Normal 12.0-15.0 [facility] Comment on above: Result Comment: DR Jordan ANCELLED Performed By: #### L 100.0500, L500.4050 ####[facility] [address] [place], [address] MCH Normal 27.0-32.0 [facility] Comment on above: Result Comment: DR Jordan ANCELLED Performed By: #### L 100.0500, L500.4050 ####[facility] [address] [place], [address] MCHC Normal 32-36 [facility] Comment on above: Result Comment: DR Jordan ANCELLED Performed By: #### L 100.0500, L500.4050 ####[facility] [address] [place], [address] MCV Normal 81-99 [facility] Comment on above: Result Comment: DR Jordan ANCELLED Performed By: #### L 100.0500, L500.4050 ####[facility] [address] [place], [address] PLT Normal 150-450 [facility] Comment on above: Result Comment: DR Jordan ANCELLED Performed By: #### L 100.0500, L500.4050 ####[facility] [address] [place], [address] RBC Normal 4.2-5.4 [facility] Comment on above: Result Comment: DR Jordan ANCELLED Performed By: #### L 100.0500, L500.4050 ####[facility] [address] [place], [address] RDW CV Normal 11.6-14.6 [facility] Comment on above: Result Comment: DR Jordan ANCELLED Performed By: #### L 100.0500, L500.4050 ####[facility] [address] [place], [address] RDW SD Normal 35.1-43.9 [facility] Comment on above: Result Comment: DR Jordan ANCELLED Performed By: #### L 100.0500, L500.4050 ####[facility] [address] [place], [address] WBC Normal 4.4-11.0 [facility] Comment on above: Result Comment: DR Jordan ANCELLED Performed By: #### L 100.0500, L500.4050 ####[facility] [address] [place], [address] Comprehensive Metabolic Prof ilon 12-18-2023 ALB Normal 3.2-5.0 [facility] Comment on above: Result Comment: DR Jordan ANCELLED Performed By: #### L 100.0500, L500.4050 ####[facility] [address] [place], [address] ALK P Normal 45-117 [facility] Comment on above: Result Comment: DR Jordan ANCELLED Performed By: #### L 100.0500, L500.4050 ####[facility] [address] [place], [address] ALT Normal 13-56 [facility] Comment on above: Result Comment: DR Julian NOVOAELLED Performed By: #### L 100.0500, L500.4050 ####[facility] [address] [place], [address] AST Normal 15-37 [facility] Comment on above: Result Comment: DR Jordan ANCELLED Performed By: #### L 100.0500, L500.4050 ####[facility] [address] [place], [address] BUN Normal 7-18 [facility] Comment on above: Result Comment: DR Julian NOVOAELLED Performed By: #### L 100.0500, L500.4050 ####[facility] [address] [place], [address] BUN/CRE Normal 10-20 [facility] Comment on above: Result Comment: DR Julian NOVOAELLED Performed By: #### L 100.0500, L500.4050 ####[facility] [address] [place], [address] CA,Total Normal 8.5-10.1 [facility] Comment on above: Result Comment: DR Julian NOVOAELLED Performed By: #### L 100.0500, L500.4050 ####[facility] [address] [place], [address] CL Normal 98-107 [facility] Comment on above: Result Comment: DR Julian NOVOAELLED Performed By: #### L 100.0500, L500.4050 ####[facility] [address] [place], [address] CO2 Normal 21.0-32.0 [facility] Comment on above: Result Comment: DR Jordan ANCELLED Performed By: #### L 100.0500, L500.4050 ####[facility] [address] [place], [address] CREAT,SERUM Normal 0.55-1.02 [facility] Comment on above: Result Comment: DR Julian NOVOAELLED Performed By: #### L 100.0500, L500.4050 ####[facility] [address] [place], [address] EST GFR Normal >60 [facility] Comment on above: Result Comment: DR Jordan ANCELLED Performed By: #### L 100.0500, L500.4050 ####[facility] [address] [place], [address] EST GFR - AA Normal >60 [facility] Comment on above: Result Comment: DR Julian NOVOAELLED Performed By: #### L 100.0500, L500.4050 ####[facility] [address] [place], [address] GAP Normal 5-15 [facility] Comment on above: Result Comment: DR Julian NOVOAELLED Performed By: #### L 100.0500, L500.4050 ####[facility] [address] [place], [address] GLU Normal 74-106 [facility] Comment on above: Result Comment: DR Julian NOVOAELLED Performed By: #### L 100.0500, L500.4050 ####[facility] [address] [place], [address] Potassium Normal 3.5-5.1 [facility] Comment on above: Result Comment: DR Jordan ANCELLED Performed By: #### L 100.0500, L500.4050 ####[facility] [address] [place], [address] T BILI Normal 0.20-1.00 [facility] Comment on above: Result Comment: DR Jordan ANCELLED Performed By: #### L 100.0500, L500.4050 ####[facility] [address] [place], [address] T PROT Normal 6.4-8.2 [facility] Comment on above: Result Comment: DR Julian DENNISON Performed By: #### L 100.0500, L500.4050 ####[facility] [address] [place], [address] Comprehensive Metabolic Profil Normal 136-145 [facility] Comment on above: Result Comment: DR Julian DENNISON Performed By: #### L 100.0500, L500.4050 ####[facility] [address] [place], [address] Bedside Glucoseon 12-17-2023 FINGERSTICK GLU 357 mg/dL High 74-106 [facility] Comment on above: Result Comment: GALA GEMENT OF PATIENT CARE PER NURSING PROTOCOL Performed By: #### L 501.080 ####[facility] [address] [place], [address] FINGERSTICK GLU 308 mg/dL High 74-106 [facility] Comment on above: Result Comment: GALA GEMENT OF PATIENT CARE PER NURSING PROTOCOL Performed By: #### L 501.080 ####[facility] [address] [place], [address] FINGERSTICK GLU 284 mg/dL High 74-106 [facility] Comment on above: Result Comment: GALA GEMENT OF PATIENT CARE PER NURSING PROTOCOL Performed By: #### L 501.080 ####[facility] [address] [place], [address] FINGERSTICK GLU 127 mg/dL High 74-106 [facility] Comment on above: Result Comment: GALA GEMENT OF PATIENT CARE PER NURSING PROTOCOL Performed By: #### L 501.080 ####[facility] [address] [place], [address] CBC-Complete Blood Cnt No Di ffon 12-17-2023 Erythrocyte distribution width (RBC) [Ratio] 15.5 % High 11.6-14.6 [facility] Comment on above: Performed By: #### L 100.0500, L500.4050 ####[facility] [address] [place], [address] Hematocrit (Bld) [Volume fraction] 26.4 % Low 37-47 [facility] Comment on above: Performed By: #### L 100.0500, L500.4050 ####[facility] [address] [place], [address] Hemoglobin (Bld) [Mass/Vol] 8.4 g/dL Low 12.0-15.0 [facility] Comment on above: Performed By: #### L 100.0500, L500.4050 ####[facility] [address] [place], [address] MCH (RBC) [Entitic mass] 30.7 pg Normal 27.0-32.0 [facility] Comment on above: Performed By: #### L 100.0500, L500.4050 ####[facility] [address] [place], [address] MCHC (RBC) [Mass/Vol] 31.8 g/dL Low 32-36 [place] [facility] Comment on above: Performed By: #### L 100.0500, L500.4050 ####[facility] [address] [place], [address] MCV (RBC) [Entitic vol] 96.4 fL Normal 81-99 [facility] Comment on above: Performed By: #### L 100.0500, L500.4050 ####[facility] [address] [place], [address] Platelet mean volume (Bld) [Entitic vol] 12.9 fL High 6.2-12.0 [facility] Comment on above: Performed By: #### L 100.0500, L500.4050 ####[facility] [address] [place], [address] Platelets (Bld) [#/Vol] 170 10*3/uL Normal 150-450 [facility] Comment on above: Performed By: #### L 100.0500, L500.4050 ####[facility] [address] [place], [address] RBC (Bld) [#/Vol] 2.74 10*6/uL Low 4.2-5.4 [facility] Comment on above: Performed By: #### L 100.0500, L500.4050 ####[facility] [address] [place], [address] RDW SD 53.6 fl High 35.1-43.9 [facility] Comment on above: Performed By: #### L 100.0500, L500.4050 ####[facility] [address] [place], [address] WBC (Bld) [#/Vol] 8.7 10*3/uL Normal 4.4-11.0 [facility] Comment on above: Performed By: #### L 100.0500, L500.4050 ####[facility] [address] [place], [address] Comprehensive Metabolic Prof [facility] 12-17-2023 Albumin [Mass/Vol] 2.7 g/dL Low 3.2-5.0 [facility] Comment on above: Performed By: #### L 100.0500, L500.4050 ####[facility] [address] [place], [address] Albumin/Globulin [Mass ratio] 0.9 {ratio} Normal 0.9-2.4 [facility] Comment on above: Performed By: #### L 100.0500, L500.4050 ####[facility] [address] [place], [address] ALK P 78 U/L Normal 45-117 [facility] Comment on above: Performed By: #### L 100.0500, L500.4050 ####[facility] [address] [place], [address] ALT [Catalytic activity/Vol] 36 U/L Normal 13-56 [facility] Comment on above: Performed By: #### L 100.0500, L500.4050 ####[facility] [address] [place], [address] AST [Catalytic activity/Vol] 19 U/L Normal 15-37 [facility] Comment on above: Performed By: #### L 100.0500, L500.4050 ####[facility] [address] [place], [address] Bilirubin [Mass/Vol] 0.70 mg/dL Normal 0.20-1.00 [facility] Comment on above: Result Comment: For patients on eltrombopag therapy, use of Dimension [place] TBIL is not recommended. Performed By: #### L 100.0500, L500.4050 ####[facility] [address] [place], [address] BUN/CRE 14.0 RATIO Normal 10-20 [facility] Comment on above: Performed By: #### L 100.0500, L500.4050 ####[facility] [address] [place], [address] CA,Total 8.1 mg/dL Low 8.5-10.1 [facility] Comment on above: Performed By: #### L 100.0500, L500.4050 ####[facility] [address] [place], [address] Chloride [Moles/Vol] 102 mmol/L Normal 98-107 [facility] Comment on above: Performed By: #### L 100.0500, L500.4050 ####[facility] [address] [place], [address] CO2 [Moles/Vol] 23.0 mmol/L Normal 21.0-32.0 [facility] Comment on above: Performed By: #### L 100.0500, L500.4050 ####[facility] [address] [place], [address] Creatinine [Mass/Vol] 6.72 mg/dL High 0.55-1.02 [facility] Comment on above: Result Comment: The validity of the calculated GFR GFRAA in patients over70 years has not been determined. Clinical correlation isessential. Performed By: #### L 100.0500, L500.4050 ####[facility] [address] [place], [address] ECRCL 10.45 ml/min Normal [facility] Comment on above: Performed By: #### L 100.0500, L500.4050 ####[facility] [address] [place], [address] EST GFR - AA 8 mL/min Low >60 [facility] Comment on above: Result Comment: Afri can Czech GFR Calc Performed By: #### L 100.0500, L500.4050 ####[facility] [address] [place], [address] GAP 12 Normal 5-15 [facility] Comment on above: Performed By: #### L 100.0500, L500.4050 ####[facility] [address] [place], [address] GFR/1.73 sq M.predicted among non-blacks MDRD (S/P/Bld) [Vol rate/Area] 7 mL/min/{1.73_m2} Low >60 [facility] Comment on above: Result Comment: Non- GFR Calc Performed By: #### L 100.0500, L500.4050 ####[facility] [address] [place], [address] Globulin (S) [Mass/Vol] 3.1 g/dL Normal 2.2-4.2 [facility] Comment on above: Performed By: #### L 100.0500, L500.4050 ####[facility] [address] [place], [address] Glucose [Mass/Vol] 134 mg/dL High 74-106 [facility] Comment on above: Result Comment: Fast ing Glucose result greater than or equal to 126 mg/dLsuggests DIABETES MELLITUS per A.D.A. criteria. Performed By: #### L 100.0500, L500.4050 ####[facility] [address] [place], [address] Potassium [Moles/Vol] 4.6 mmol/L Normal 3.5-5.1 [facility] Comment on above: Performed By: #### L 100.0500, L500.4050 ####[facility] [address] [place], [address] Sodium [Moles/Vol] 137 mmol/L Normal 136-145 [facility] Comment on above: Performed By: #### L 100.0500, L500.4050 ####[facility] [address] [place], [address] T PROT 5.8 g/dL Low 6.4-8.2 [facility] Comment on above: Performed By: #### L 100.0500, L500.4050 ####[facility] [address] [place], [address] Urea nitrogen [Mass/Vol] 94 mg/dL High 7-18 [facility] Comment on above: Performed By: #### L 100.0500, L500.4050 ####[facility] [address] [place], [address] Bedside Glucoseon 12-16-2023 FINGERSTICK GLU 288 mg/dL High [address] [place] [address] Comment on above: Result Comment: GALA GEMENT OF PATIENT CARE PER NURSING PROTOCOL Performed By: #### L 501.080 ####[facility] [address] [place], [address] FINGERSTICK GLU > 500 Invalid Interpretation Code -[address] [place] [address] Comment on above: Result Comment: GALA GEMENT OF PATIENT CARE PER NURSING PROTOCOL Performed By: #### L 501.080 ####[facility] [address] [place], [address] FINGERSTICK GLU 189 mg/dL High [address] [place] [address] Comment on above: Result Comment: GALA GEMENT OF PATIENT CARE PER NURSING PROTOCOL Performed By: #### L 501.080 ####[facility] [address] [place], [address] FINGERSTICK GLU 169 mg/dL High [address] [place] [address] Comment on above: Result Comment: GALA GEMENT OF PATIENT CARE PER NURSING PROTOCOL Performed By: #### L 501.080 ####[facility] [address], [address] FINGERSTICK GLU 345 mg/dL High [address] [place] [address] Comment on above: Result Comment: GALA GEMENT OF PATIENT CARE PER NURSING PROTOCOL Performed By: #### L 501.080 ####[facility] [address] [place], [address] CBC-Complete Blood Cnt No Di ffon 12-16-2023 Erythrocyte distribution width (RBC) [Ratio] 15.7 % High 11.6-14.6 [facility] Comment on above: Performed By: #### L 500.4050, L100.0500 ####[facility] [address] [place], [address] Hematocrit (Bld) [Volume fraction] 26.7 % Low 37-47 [facility] Comment on above: Performed By: #### L 500.4050, L100.0500 ####[facility] [address] [place], [address] Hemoglobin (Bld) [Mass/Vol] 8.4 g/dL Low 12.0-15.0 [facility] Comment on above: Performed By: #### L 500.4050, L100.0500 ####[facility] [address] [place], [address] MCH (RBC) [Entitic mass] 30.9 pg Normal 27.0-32.0 [facility] Comment on above: Performed By: #### L 500.4050, L100.0500 ####[facility] [address] [place], [address] MCHC (RBC) [Mass/Vol] 31.5 g/dL Low 32-36 [facility] Comment on above: Performed By: #### L 500.4050, L100.0500 ####[facility] [address] [place], [address] MCV (RBC) [Entitic vol] 98.2 fL Normal 81-99 [facility] Comment on above: Performed By: #### L 500.4050, L100.0500 ####[facility] [address] [place], [address] Platelet mean volume (Bld) [Entitic vol] 13.0 fL High 6.2-12.0 [facility] Comment on above: Performed By: #### L 500.4050, L100.0500 ####[facility] [address] [place], [address] Platelets (Bld) [#/Vol] 156 10*3/uL Normal 150-450 [facility] Comment on above: Performed By: #### L 500.4050, L100.0500 ####[facility] [address] [place], [address] RBC (Bld) [#/Vol] 2.72 10*6/uL Low 4.2-5.4 [facility] Comment on above: Performed By: #### L 500.4050, L100.0500 ####[facility] [address] [place], [address] RDW SD 55.3 fl High 35.1-43.9 [facility] Comment on above: Performed By: #### L 500.4050, L100.0500 ####[facility] [address] [place], [address] WBC (Bld) [#/Vol] 9.5 10*3/uL Normal 4.4-11.0 [facility] Comment on above: Performed By: #### L 500.4050, L100.0500 ####[facility] [address] [place], [address] Comprehensive Metabolic Prof [facility] 12-16-2023 Albumin [Mass/Vol] 2.8 g/dL Low 3.2-5.0 [facility] Comment on above: Performed By: #### L 500.4050, L100.0500 ####[facility] [address] [place], [address] Albumin/Globulin [Mass ratio] 0.9 {ratio} Normal 0.9-2.4 [facility] Comment on above: Performed By: #### L 500.4050, L100.0500 ####[facility] [address] [place], [address] ALK P 81 U/L Normal 45-117 [facility] Comment on above: Performed By: #### L 500.4050, L100.0500 ####[facility] [address] [place], [address] ALT [Catalytic activity/Vol] 42 U/L Normal 13-56 [facility] Comment on above: Performed By: #### L 500.4050, L100.0500 ####[facility] [address] [place], [address] AST [Catalytic activity/Vol] 24 U/L Normal 15-37 [facility] Comment on above: Performed By: #### L 500.4050, L100.0500 ####[facility] [address] [place], [address] Bilirubin [Mass/Vol] 0.70 mg/dL Normal 0.20-1.00 [facility] Comment on above: Result Comment: For patients on eltrombopag therapy, use of Dimension [place] TBIL is not recommended. Performed By: #### L 500.4050, L100.0500 ####[facility] [address] [place], [address] BUN/CRE 13.4 RATIO Normal 10-20 [facility] Comment on above: Performed By: #### L 500.4050, L100.0500 ####[facility] [address] [place], [address] CA,Total 8.6 mg/dL Normal 8.5-10.1 [facility] Comment on above: Performed By: #### L 500.4050, L100.0500 ####[facility] [address] [place], [address] Chloride [Moles/Vol] 102 mmol/L Normal 98-107 [facility] Comment on above: Performed By: #### L 500.4050, L100.0500 ####[facility] [address] [place], [address] CO2 [Moles/Vol] 25.0 mmol/L Normal 21.0-32.0 [facility] Comment on above: Performed By: #### L 500.4050, L100.0500 ####[facility] [address] [place], [address] Creatinine [Mass/Vol] 5.73 mg/dL High 0.55-1.02 [facility] Comment on above: Result Comment: The validity of the calculated GFR GFRAA in patients over70 years has not been determined. Clinical correlation isessential. Performed By: #### L 500.4050, L100.0500 ####[facility] [address] [place], [address] ECRCL 12.26 ml/min Normal [facility] Comment on above: Performed By: #### L 500.4050, L100.0500 ####[facility] [address] [place], [address] EST GFR - AA 10 mL/min Low >60 [facility] Comment on above: Result Comment: Afri can Czech GFR Calc Performed By: #### L 500.4050, L100.0500 ####[facility] [address] [place], [address] GAP 8 Normal 5-15 [facility] Comment on above: Performed By: #### L 500.4050, L100.0500 ####[facility] [address] [place], [address] GFR/1.73 sq M.predicted among non-blacks MDRD (S/P/Bld) [Vol rate/Area] 8 mL/min/{1.73_m2} Low >60 [facility] Comment on above: Result Comment: Non- GFR Calc Performed By: #### L 500.4050, L100.0500 ####[facility] [address] [place], [address] Globulin (S) [Mass/Vol] 3.2 g/dL Normal 2.2-4.2 [facility] Comment on above: Performed By: #### L 500.4050, L100.0500 ####[facility] [address] [place], [address] Glucose [Mass/Vol] 212 mg/dL High 74-106 [facility] Comment on above: Result Comment: Gluc ose result greater than or equal to 200 mg/dLsuggests DIABETES MELLITUS per A.D.A. criteria. Performed By: #### L 500.4050, L100.0500 ####[facility] [address] [place], [address] Potassium [Moles/Vol] 5.3 mmol/L High 3.5-5.1 [facility] Comment on above: Performed By: #### L 500.4050, L100.0500 ####[facility] [address] [place], [address] Sodium [Moles/Vol] 135 mmol/L Low 136-145 [facility] Comment on above: Performed By: #### L 500.4050, L100.0500 ####[facility] [address] [place], [address] T PROT 6.0 g/dL Low 6.4-8.2 [facility] Comment on above: Performed By: #### L 500.4050, L100.0500 ####[facility] [address] [place], [address] Urea nitrogen [Mass/Vol] 77 mg/dL High 7-18 [facility] Comment on above: Performed By: #### L 500.4050, L100.0500 ####[facility] [address] [place], [address] Modified Barium Swallow Stud yon 12-16-2023 Modified Barium Swallow Study Normal [facility] Bedside Glucoseon 12-15-2023 FINGERSTICK GLU 432 mg/dL High 74-106 [facility] Comment on above: Result Comment: GALA GEMENT OF PATIENT CARE PER NURSING PROTOCOL Performed By: #### L 501.080 ####[facility] [address] [place], [address] FINGERSTICK GLU 433 mg/dL High 74-106 [facility] Comment on above: Result Comment: GALA GEMENT OF PATIENT CARE PER NURSING PROTOCOL Performed By: #### L 501.080 ####[facility] [address] [place], [address] FINGERSTICK GLU 236 mg/dL High 74-106 [facility] Comment on above: Result Comment: GALA GEMENT OF PATIENT CARE PER NURSING PROTOCOL Performed By: #### L 501.080 ####[facility] [address] [place], [address] FINGERSTICK GLU 190 mg/dL High 74-106 [facility] Comment on above: Result Comment: GALA GEMENT OF PATIENT CARE PER NURSING PROTOCOL Performed By: #### L 501.080 ####[facility] [address] [place], [address] CBC W/Diff, Automatedon 09-1 Absolute Lymph 0.51 X10 3/uL Low 0.83-4.51 [facility] Comment on above: Performed By: #### L 500.4050, L501.9985, L100.0100 ####[facility] [address] [place], [address] Absolute Neut 10.6 X10 3/uL High 2.0-7.7 [facility] Comment on above: Performed By: #### L 500.4050, L501.9985, L100.0100 ####[facility] [address] [place], [address] Basophils/100 WBC (Bld) 0.1 % Normal 0-1 [facility] Comment on above: Performed By: #### L 500.4050, L501.9985, L100.0100 ####[facility] [address] [place], [address] Eosinophils/100 WBC (Bld) 0.0 % Normal 0-5 [facility] Comment on above: Performed By: #### L 500.4050, L501.9985, L100.0100 ####[facility] [address] [place], [address] Erythrocyte distribution width (RBC) [Ratio] 15.1 % High 11.6-14.6 [facility] Comment on above: Performed By: #### L 500.4050, L501.9985, L100.0100 ####[facility] [address] [place], [address] Hematocrit (Bld) [Volume fraction] 29.6 % Low 37-47 [facility] Comment on above: Performed By: #### L 500.4050, L501.9985, L100.0100 ####[facility] [address] [place], [address] Hemoglobin (Bld) [Mass/Vol] 9.3 g/dL Low 12.0-15.0 [facility] Comment on above: Performed By: #### L 500.4050, L501.9985, L100.0100 ####[facility] [address] [place], [address] IG% 0.900 Normal 0.0-0.9 [facility] Comment on above: Result Comment: IG% - Immature Granulocytes (promyelocytes, myelocytes andmetamyelocytes) > 1% indicates that a LEFT SHIFT is Present. Performed By: #### L 500.4050, L501.9985, L100.0100 ####[facility] [address] [place], [address] Lymphocytes/100 WBC (Bld) 4.4 % Low 19-41 [facility] Comment on above: Performed By: #### L 500.4050, L501.9985, L100.0100 ####[facility] [address] [place], [address] MCH (RBC) [Entitic mass] 30.9 pg Normal 27.0-32.0 [facility] Comment on above: Performed By: #### L 500.4050, L501.9985, L100.0100 ####[facility] [address] [place], [address] MCHC (RBC) [Mass/Vol] 31.4 g/dL Low 32-36 [facility] Comment on above: Performed By: #### L 500.4050, L501.9985, L100.0100 ####[facility] [address] [place], [address] MCV (RBC) [Entitic vol] 98.3 fL Normal 81-99 [facility] Comment on above: Performed By: #### L 500.4050, L501.9985, L100.0100 ####[facility] [address] [place], [address] Monocytes/100 WBC (Bld) 3.7 % Normal 0-10 [facility] Comment on above: Performed By: #### L 500.4050, L501.9985, L100.0100 ####[facility] [address] [place], [address] Neutrophils/100 WBC (Bld) 90.9 % High 47-70 [facility] Comment on above: Performed By: #### L 500.4050, L501.9985, L100.0100 ####[facility] [address] [place], [address] Nucleated RBC (Bld) [#/Vol] 0.2 10*3/uL Normal 0-5 [facility] Comment on above: Performed By: #### L 500.4050, L501.9985, L100.0100 ####[facility] [address] [place], [address] Platelet mean volume (Bld) [Entitic vol] 12.8 fL High 6.2-12.0 [facility] Comment on above: Performed By: #### L 500.4050, L501.9985, L100.0100 ####[facility] [address] [place], [address] Platelets (Bld) [#/Vol] 161 10*3/uL Normal 150-450 [facility] Comment on above: Performed By: #### L 500.4050, L501.9985, L100.0100 ####[facility] [address] [place], [address] RBC (Bld) [#/Vol] 3.01 10*6/uL Low 4.2-5.4 [facility] Comment on above: Performed By: #### L 500.4050, L501.9985, L100.0100 ####[facility] [address] [place], [address] RDW SD 54.2 fl High 35.1-43.9 [facility] Comment on above: Performed By: #### L 500.4050, L501.9985, L100.0100 ####[facility] [address] [place], [address] WBC (Bld) [#/Vol] 11.7 10*3/uL High 4.4-11.0 [facility] Comment on above: Performed By: #### L 500.4050, L501.9985, L100.0100 ####[facility] [address] [place], [address] Comprehensive Metabolic Prof [facility] 12-15-2023 Albumin [Mass/Vol] 2.8 g/dL Low 3.2-5.0 [facility] Comment on above: Performed By: #### L 500.4050, L501.9985, L100.0100 ####[facility] [address] [place], [address] Albumin/Globulin [Mass ratio] 0.9 {ratio} Normal 0.9-2.4 [facility] Comment on above: Performed By: #### L 500.4050, L501.9985, L100.0100 ####[facility] [address] [place], [address] ALK P 83 U/L Normal 45-117 [facility] Comment on above: Performed By: #### L 500.4050, L501.9985, L100.0100 ####[facility] [address] [place], [address] ALT [Catalytic activity/Vol] 52 U/L Normal 13-56 [facility] Comment on above: Performed By: #### L 500.4050, L501.9985, L100.0100 ####[facility] [address] [place], [address] AST [Catalytic activity/Vol] 32 U/L Normal 15-37 [facility] Comment on above: Performed By: #### L 500.4050, L501.9985, L100.0100 ####[facility] [address] [place], [address] Bilirubin [Mass/Vol] 0.90 mg/dL Normal 0.20-1.00 [facility] Comment on above: Result Comment: For patients on eltrombopag therapy, use of Dimension [place] TBIL is not recommended. Performed By: #### L 500.4050, L501.9985, L100.0100 ####[facility] [address] [place], [address] BUN/CRE 11.6 RATIO Normal 10-20 [facility] Comment on above: Performed By: #### L 500.4050, L501.9985, L100.0100 ####[facility] [address] [place], [address] CA,Total 8.7 mg/dL Normal 8.5-10.1 [facility] Comment on above: Performed By: #### L 500.4050, L501.9985, L100.0100 ####[facility] [address] [place], [address] Chloride [Moles/Vol] 102 mmol/L Normal 98-107 [facility] Comment on above: Performed By: #### L 500.4050, L501.9985, L100.0100 ####[facility] [address] [place], [address] CO2 [Moles/Vol] 24.0 mmol/L Normal 21.0-32.0 [facility] Comment on above: Performed By: #### L 500.4050, L501.9985, L100.0100 ####[facility] [address] [place], [address] Creatinine [Mass/Vol] 6.64 mg/dL High 0.55-1.02 [facility] Comment on above: Result Comment: The validity of the calculated GFR GFRAA in patients over70 years has not been determined. Clinical correlation isessential. Performed By: #### L 500.4050, L501.9985, L100.0100 ####[facility] [address], [address] ECRCL 10.35 ml/min Normal [facility] Comment on above: Performed By: #### L 500.4050, L501.9985, L100.0100 ####[facility] [address] [place], [address] EST GFR - AA 8 mL/min Low >60 [facility] Comment on above: Result Comment: Afri can Czech GFR Calc Performed By: #### L 500.4050, L501.9985, L100.0100 ####[facility] [address] [place], [address] GAP 11 Normal 5-15 [facility] Comment on above: Performed By: #### L 500.4050, L501.9985, L100.0100 ####[facility] [address] [place], [address] GFR/1.73 sq M.predicted among non-blacks MDRD (S/P/Bld) [Vol rate/Area] 7 mL/min/{1.73_m2} Low >60 [facility] Comment on above: Result Comment: Non- GFR Calc Performed By: #### L 500.4050, L501.9985, L100.0100 ####[facility] [address] [place], [address] Globulin (S) [Mass/Vol] 3.2 g/dL Normal 2.2-4.2 [facility] Comment on above: Performed By: #### L 500.4050, L501.9985, L100.0100 ####[facility] [id number] [place], [address] Glucose [Mass/Vol] 198 mg/dL High 74-106 [facility] Comment on above: Result Comment: Fast ing Glucose result greater than or equal to 126 mg/dLsuggests DIABETES MELLITUS per A.D.A. criteria. Performed By: #### L 500.4050, L501.9985, L100.0100 ####[facility] [id number] [place], [address] Potassium [Moles/Vol] 5.5 mmol/L High 3.5-5.1 [facility] Comment on above: Performed By: #### L 500.4050, L501.9985, L100.0100 ####[facility] [address] [place], [address] Sodium [Moles/Vol] 137 mmol/L Normal 136-145 [facility] Comment on above: Performed By: #### L 500.4050, L501.9985, L100.0100 ####[facility] [address] [place], [address] T PROT 6.0 g/dL Low 6.4-8.2 [facility] Comment on above: Performed By: #### L 500.4050, L501.9985, L100.0100 ####[facility] [address] [place], [address] Urea nitrogen [Mass/Vol] 77 mg/dL High 7-18 [facility] Comment on above: Performed By: #### L 500.4050, L501.9985, L100.0100 ####[facility] [address] [place], [address] Hemoglobin A1con 12-15-2023 HbA1c (Bld) [Mass fraction] 7.1 % High 3.8-5.6 [facility] Comment on above: Result Comment: Norm al < 5.7 % Prediabetic 5.7 - 6.4 % Diabetic >or= 6.5 % Please note range changes. Performed By: #### L 500.4050, L501.9985, L100.0100 ####[facility] [address] [place], [address] Legionella Antigen Urineon 0 12-15-[address] [facility] Comment on above: Performed By: #### M 300.4500, M300.4600 ####[facility] [address] [place], [address] M8200.1000on 12-15-[address] [facility] Comment on above: Performed By: #### M 8200.1000 ####[facility] [address] [place], [address] Strep pneumoniae Antig(UR,CS F)on 12-15-[address] [facility] Comment on above: Performed By: #### M 300.4500, M300.4600 ####[facility] [address] [place], [address] Vancomycin, Random Levelon 0 12-15-2023 VANCO, RANDOM 25.7 ug/mL High 0.0-15.0 [facility] Comment on above: Result Comment: VANC OMYCIN STANDARD DRUG THERAPY: CRITICAL VALUE IS > 15.0 mg/LVANCOMYCIN HIGH INTENSITY THERAPY: CRITICAL VALUE IS > 20.0 mg/LPLEASE CONTACT PHARMACY SERVICES (#1323) FOR INTERPRETATIONOF RESULTS. THIS RESULT DOES NOT REPRESENT A PEAK OR TROUGHLEVEL FOR THIS DRUG. Performed By: #### L 501.8850 ####[facility] [address] [place], [address] Alkaline Phosphataseon 12-13 ALK P 107 U/L Normal 45-117 [facility] Comment on above: Performed By: #### L 501.4305 ####[facility] [address] [place], [address] Basic Metabolic Profile (BMP )on 12-14-2023 BUN/CRE 10.2 RATIO Normal 10-20 [facility] Comment on above: Order Comment: 'TROP ' Serial specimen #1, #2 or #3: 1 Performed By: #### L 501.4020, L100.0100, L501.2450, L500.2500, L500.3400 ####[facility] [address] [place], [address] CA,Total 8.7 mg/dL Normal 8.5-10.1 [facility] Comment on above: Order Comment: 'TROP ' Serial specimen #1, #2 or #3: 1 Performed By: #### L 501.4020, L100.0100, L501.2450, L500.2500, L500.3400 ####[facility] [address] [place], [address] Chloride [Moles/Vol] 101 mmol/L Normal 98-107 [facility] Comment on above: Order Comment: 'TROP ' Serial specimen #1, #2 or #3: 1 Performed By: #### L 501.4020, L100.0100, L501.2450, L500.2500, L500.3400 ####[facility] [address] [place], [address] CO2 [Moles/Vol] 27.0 mmol/L Normal 21.0-32.0 [facility] Comment on above: Order Comment: 'TROP ' Serial specimen #1, #2 or #3: 1 Performed By: #### L 501.4020, L100.0100, L501.2450, L500.2500, L500.3400 ####[facility] [address] [place], [address] Creatinine [Mass/Vol] 5.67 mg/dL High 0.55-1.02 [facility] Comment on above: Order Comment: 'TROP ' Serial specimen #1, #2 or #3: 1 Result Comment: The validity of the calculated GFR GFRAA in patients over70 years has not been determined. Clinical correlation isessential. Performed By: #### L 501.4020, L100.0100, L501.2450, L500.2500, L500.3400 ####[facility] [address] [place], [address] ECRCL 12.79 ml/min Normal [facility] Comment on above: Order Comment: 'TROP ' Serial specimen #1, #2 or #3: 1 Performed By: #### L 501.4020, L100.0100, L501.2450, L500.2500, L500.3400 ####[facility] [address] [place], [address] EST GFR - AA 10 mL/min Low >60 [facility] Comment on above: Order Comment: 'TROP ' Serial specimen #1, #2 or #3: 1 Result Comment: Afri can Czech GFR Calc Performed By: #### L 501.4020, L100.0100, L501.2450, L500.2500, L500.3400 ####[facility] [address] [place], [address] GAP 8 Normal 5-15 [facility] Comment on above: Order Comment: 'TROP ' Serial specimen #1, #2 or #3: 1 Performed By: #### L 501.4020, L100.0100, L501.2450, L500.2500, L500.3400 ####[facility] [address] [place], [address] GFR/1.73 sq M.predicted among non-blacks MDRD (S/P/Bld) [Vol rate/Area] 8 mL/min/{1.73_m2} Low >60 [facility] Comment on above: Order Comment: 'TROP ' Serial specimen #1, #2 or #3: 1 Result Comment: Non- GFR Calc Performed By: #### L 501.4020, L100.0100, L501.2450, L500.2500, L500.3400 ####[facility] [address] [place], [address] Glucose [Mass/Vol] 285 mg/dL High 74-106 [facility] Comment on above: Order Comment: 'TROP ' Serial specimen #1, #2 or #3: 1 Result Comment: Gluc ose result greater than or equal to 200 mg/dLsuggests DIABETES MELLITUS per A.D.A. criteria. Performed By: #### L 501.4020, L100.0100, L501.2450, L500.2500, L500.3400 ####[facility] [address] [place], [address] Potassium [Moles/Vol] 5.2 mmol/L High 3.5-5.1 [facility] Comment on above: Order Comment: 'TROP ' Serial specimen #1, #2 or #3: 1 Performed By: #### L 501.4020, L100.0100, L501.2450, L500.2500, L500.3400 ####[facility] [address] [place], [address] Sodium [Moles/Vol] 136 mmol/L Normal 136-145 [facility] Comment on above: Order Comment: 'TROP ' Serial specimen #1, #2 or #3: 1 Performed By: #### L 501.4020, L100.0100, L501.2450, L500.2500, L500.3400 ####[facility] [address] [place], [address] Urea nitrogen [Mass/Vol] 58 mg/dL High 7-18 [facility] Comment on above: Order Comment: 'TROP ' Serial specimen #1, #2 or #3: 1 Performed By: #### L 501.4020, L100.0100, L501.2450, L500.2500, L500.3400 ####[facility] [address] [place], [address] Bedside Glucoseon 12-14-2023 FINGERSTICK GLU 139 mg/dL High 74-106 [facility] Comment on above: Result Comment: GALA GEMENT OF PATIENT CARE PER NURSING PROTOCOL Performed By: #### L 501.080 ####[facility] [address] [place], [address] FINGERSTICK GLU 231 mg/dL High 74-106 [facility] Comment on above: Result Comment: GALA GEMENT OF PATIENT CARE PER NURSING PROTOCOL Performed By: #### L 501.080 ####[facility] [address] [place], [address] FINGERSTICK GLU 317 mg/dL High 74-106 [facility] Comment on above: Result Comment: GALA DENNISON OF PATIENT CARE PER NURSING PROTOCOL Performed By: #### L 501.080 ####[facility] [address] [place], [address] Blood Gases by [facility] 024 JACKIE TEST Positive Normal [facility] Comment on above: Performed By: #### L 9000.0800 ####[facility] [address] [place], [address] Base excess Calc (Bld) [Moles/Vol] 1 mmol/L Normal -2 to +2 [facility] Comment on above: Performed By: #### L 9000.0800 ####[facility] [address] [place], [address] Blood Gas Type ART Normal [facility] Comment on above: Performed By: #### L 9000.0800 ####[facility] [address] [place], [address] CO2 [Moles/Vol] 27 mmol/L Normal [facility] Comment on above: Performed By: #### L 9000.0800 ####[facility] [address] [place], [address] [address] [facility] Comment on above: Performed By: #### L 9000.0800 ####[facility] [address] [place], [address] HCO3 (Bld) [Moles/Vol] 26.0 mmol/L Normal 22-[address] [facility] Comment on above: Performed By: #### L 9000.0800 ####[facility] [address] [place], [address] Mode Not entered Normal [facility] Comment on above: Performed By: #### L 9000.0800 ####[facility] [address] [place], [address] O2 Delivery Dev Cannula Normal [facility] Comment on above: Performed By: #### L 9000.0800 ####[facility] [address] [place], [address] pCO2 42.3 mmHg Normal 35-45 [facility] Comment on above: Performed By: #### L 0.0800 ####[facility] [address] [place], [address] pH (Bld) 7.40 [pH] Normal 7.35-7.45 [facility] Comment on above: Performed By: #### L 9000.0800 ####[facility] [address] [place], [address] PO2 61 mmHG Low 75-100 [facility] Comment on above: Performed By: #### L 9000.0800 ####[facility] [address] [place], [address] SITE L Radial Normal [facility] Comment on above: Performed By: #### L 0.0800 ####[facility] [address] [place], [address] SO2 91 Low 95-99 [facility] Comment on above: Performed By: #### L 9000.0800 ####[facility] [address] [place], [address] CBC W/Diff, Automatedon - Absolute Lymph 0.64 X10 3/uL Low 0.83-4.51 [facility] Comment on above: Performed By: #### L 501.4020, L100.0100, L501.2450, L500.2500, L500.3400 ####[facility] [address] [place], [address] Absolute Neut 9.6 X10 3/uL High 2.0-7.7 [facility] Comment on above: Performed By: #### L 501.4020, L100.0100, L501.2450, L500.2500, L500.3400 ####[facility] [address] [place], [address] Basophils/100 WBC (Bld) 0.4 % Normal 0-1 [facility] Comment on above: Performed By: #### L 501.4020, L100.0100, L501.2450, L500.2500, L500.3400 ####[facility] [address] [place], [address] Eosinophils/100 WBC (Bld) 1.4 % Normal 0-5 [facility] Comment on above: Performed By: #### L 501.4020, L100.0100, L501.2450, L500.2500, L500.3400 ####[facility] [address] [place], [address] Erythrocyte distribution width (RBC) [Ratio] 15.1 % High 11.6-14.6 [facility] Comment on above: Performed By: #### L 501.4020, L100.0100, L501.2450, L500.2500, L500.3400 ####[facility] [address] [place], [address] Hematocrit (Bld) [Volume fraction] 32.5 % Low 37-47 [facility] Comment on above: Performed By: #### L 501.4020, L100.0100, L501.2450, L500.2500, L500.3400 ####[facility] [address] [place], [address] Hemoglobin (Bld) [Mass/Vol] 10.0 g/dL Low 12.0-15.0 [facility] Comment on above: Performed By: #### L 501.4020, L100.0100, L501.2450, L500.2500, L500.3400 ####[facility] [address] [place], [address] IG% 1.300 High 0.0-0.9 [facility] Comment on above: Result Comment: IG% - Immature Granulocytes (promyelocytes, myelocytes andmetamyelocytes) > 1% indicates that a LEFT SHIFT is Present. Performed By: #### L 501.4020, L100.0100, L501.2450, L500.2500, L500.3400 ####[facility] [address] [place], [address] Lymphocytes/100 WBC (Bld) 5.8 % Low 19-41 [facility] Comment on above: Performed By: #### L 501.4020, L100.0100, L501.2450, L500.2500, L500.3400 ####[facility] [address] [place], [address] MCH (RBC) [Entitic mass] 30.4 pg Normal 27.0-32.0 [facility] Comment on above: Performed By: #### L 501.4020, L100.0100, L501.2450, L500.2500, L500.3400 ####[facility] [address] [place], [address] MCHC (RBC) [Mass/Vol] 30.8 g/dL Low 32-36 [facility] Comment on above: Performed By: #### L 501.4020, L100.0100, L501.2450, L500.2500, L500.3400 ####[facility] [address] [place], [address] MCV (RBC) [Entitic vol] 98.8 fL Normal 81-99 [facility] Comment on above: Performed By: #### L 501.4020, L100.0100, L501.2450, L500.2500, L500.3400 ####[facility] [address] [place], [address] Monocytes/100 WBC (Bld) 4.7 % Normal 0-10 [facility] Comment on above: Performed By: #### L 501.4020, L100.0100, L501.2450, L500.2500, L500.3400 ####[facility] [address] [place], [address] Neutrophils/100 WBC (Bld) 86.4 % High 47-70 [facility] Comment on above: Performed By: #### L 501.4020, L100.0100, L501.2450, L500.2500, L500.3400 ####[facility] [address] [place], [address] Nucleated RBC (Bld) [#/Vol] 0 10*3/uL Normal 0-5 [facility] Comment on above: Performed By: #### L 501.4020, L100.0100, L501.2450, L500.2500, L500.3400 ####[facility] [address] [place], [address] Platelet mean volume (Bld) [Entitic vol] 12.7 fL High 6.2-12.0 [facility] Comment on above: Performed By: #### L 501.4020, L100.0100, L501.2450, L500.2500, L500.3400 ####[facility] [address] [place], [address] Platelets (Bld) [#/Vol] 146 10*3/uL Low 150-450 [facility] Comment on above: Performed By: #### L 501.4020, L100.0100, L501.2450, L500.2500, L500.3400 ####[facility] [address] [place], [address] RBC (Bld) [#/Vol] 3.29 10*6/uL Low 4.2-5.4 [facility] Comment on above: Performed By: #### L 501.4020, L100.0100, L501.2450, L500.2500, L500.3400 ####[facility] [address] [place], [address] RDW SD 54.2 fl High 35.1-43.9 [facility] Comment on above: Performed By: #### L 501.4020, L100.0100, L501.2450, L500.2500, L500.3400 ####[facility] [address] [place], [address] WBC (Bld) [#/Vol] 11.1 10*3/uL High 4.4-11.0 [facility] Comment on above: Performed By: #### L 501.4020, L100.0100, L501.2450, L500.2500, L500.3400 ####[facility] [address] [place], [address] Chest 1 View (Portable)on Chest 1 View (Portable) Normal [facility] Consultation - Intensiviston 12-14-2023 Consultation - Manager Labor Delivery Normal [facility] Consultation - Nephrologyon 12-14-2023 Consultation - Nephrology Normal [facility] Emergency Department Summary on 12-14-2023 Emergency Department Summary Normal [facility] H AND P Exam - Hospitaliston 12-14-2023 H&P Exam - Hospitalist Normal [facility] L501.4020on 12-14-2023 TROPONIN-I HS 40 pg/mL Normal 3.0-54.0 [facility] Comment on above: Order Comment: 'TROP ' Serial specimen #1, #2 or #3: 1 Result Comment: Kaity olmedo Note: New Test Units and Gender Specific Reference Ranges. For more information see Policy Stat Procedure [place] High Sensitivity Troponin (TNIH) and attachments. Performed By: #### L 501.4020, L100.0100, L501.2450, L500.2500, L500.3400 ####[facility] [address] [place], [address] Lactic Acidon 12-14-2023 Lactate [Moles/Vol] 0.8 mmol/L Normal 0.4-1.9 [facility] Comment on above: Order Comment: Y Performed By: #### L 503.6005, M200.1000 ####[facility] [address] [place], [address] Lipaseon 12-14-2023 Lipase [Catalytic activity/Vol] 48 U/L Normal 13-75 [facility] Comment on above: Order Comment: 'TROP ' Serial specimen #1, #2 or #3: 1 Result Comment: Kaity olmedo note:LIPASE revised reference range effective 22.New Lipase methodology. Expected to produce lower valuesthan the previous assay method.NEW Reference Range: 13 - 75 U/L Performed By: #### L 501.4020, L100.0100, L501.2450, L500.2500, L500.3400 ####[facility] [address] [place], [address] Liver Profileon 12-14-2023 Albumin [Mass/Vol] 3.3 g/dL Normal 3.2-5.0 [facility] Comment on above: Order Comment: 'TROP ' Serial specimen #1, #2 or #3: 1 Performed By: #### L 501.4020, L100.0100, L501.2450, L500.2500, L500.3400 ####[facility] [address] [place], [address] ALK P 105 U/L Normal 45-117 [facility] Comment on above: Order Comment: 'TROP ' Serial specimen #1, #2 or #3: 1 Performed By: #### L 501.4020, L100.0100, L501.2450, L500.2500, L500.3400 ####[facility] [address] [place], [address] ALT [Catalytic activity/Vol] 75 U/L High 13-56 [facility] Comment on above: Order Comment: 'TROP ' Serial specimen #1, #2 or #3: 1 Performed By: #### L 501.4020, L100.0100, L501.2450, L500.2500, L500.3400 ####[facility] [address] [place], [address] AST [Catalytic activity/Vol] 54 U/L High 15-37 [facility] Comment on above: Order Comment: 'TROP ' Serial specimen #1, #2 or #3: 1 Performed By: #### L 501.4020, L100.0100, L501.2450, L500.2500, L500.3400 ####[facility] [address] [place], [address] Bilirubin [Mass/Vol] 0.80 mg/dL Normal 0.20-1.00 [facility] Comment on above: Order Comment: 'TROP ' Serial specimen #1, #2 or #3: 1 Result Comment: For patients on eltrombopag therapy, use of Dimension [place] TBIL is not recommended. Performed By: #### L 501.4020, L100.0100, L501.2450, L500.2500, L500.3400 ####[facility] [address] [place], [address] Bilirubin.direct [Mass/Vol] 0.24 mg/dL Normal 0.00-0.30 [facility] Comment on above: Order Comment: 'TROP ' Serial specimen #1, #2 or #3: 1 Performed By: #### L 501.4020, L100.0100, L501.2450, L500.2500, L500.3400 ####[facility] [address] [place], [address] Globulin (S) [Mass/Vol] 3.6 g/dL Normal 2.2-4.2 [facility] Comment on above: Order Comment: 'TROP ' Serial specimen #1, #2 or #3: 1 Performed By: #### L 501.4020, L100.0100, L501.2450, L500.2500, L500.3400 ####[facility] [address] [place], [address] T PROT 6.9 g/dL Normal 6.4-8.2 [facility] Comment on above: Order Comment: 'TROP ' Serial specimen #1, #2 or #3: 1 Performed By: #### L 501.4020, L100.0100, L501.2450, L500.2500, L500.3400 ####[facility] [address] [place], [address] M100.678on 12-14-[address] [facility] Comment on above: Performed By: #### M 100.678 ####[facility] [address] [place], [address] Magnesiumon 12-14-2023 Magnesium [Mass/Vol] 2.2 mg/dL Normal 1.6-2.6 [facility] Comment on above: Performed By: #### L 501.5200 ####[facility] [address] [place], [address] Procedure Reporton Procedure Report Normal [facility] CBC W/Diff, Automatedon 10-29 Absolute Neut Normal 2.0-7.7 [facility] Comment on above: Result Comment: Canc elled via OM: Order cancelled - Patient discharged Performed By: #### L 500.4050, L100.0100 ####[facility] [address] [place], [address] HCT Normal 37-47 [facility] Comment on above: Result Comment: Canc elled via OM: Order cancelled - Patient discharged Performed By: #### L 500.4050, L100.0100 ####[facility] [address] [place], [address] HGB Normal 12.0-15.0 [facility] Comment on above: Result Comment: Canc elled via OM: Order cancelled - Patient discharged Performed By: #### L 500.4050, L100.0100 ####[facility] [address], [address] MCH Normal 27.0-32.0 [facility] Comment on above: Result Comment: Canc elled via OM: Order cancelled - Patient discharged Performed By: #### L 500.4050, L100.0100 ####[facility] [address] [place], [address] MCHC Normal 32-36 [facility] Comment on above: Result Comment: Canc elled via OM: Order cancelled - Patient discharged Performed By: #### L 500.4050, L100.0100 ####[facility] [address] [place], [address] MCV Normal 81-99 [facility] Comment on above: Result Comment: Canc elled via OM: Order cancelled - Patient discharged Performed By: #### L 500.4050, L100.0100 ####[facility] [address] [place], [address] NEUT% Normal 47-70 [facility] Comment on above: Result Comment: Canc elled via OM: Order cancelled - Patient discharged Performed By: #### L 500.4050, L100.0100 ####[facility] [address] [place], [address] PLT Normal 150-450 [facility] Comment on above: Result Comment: Canc elled via OM: Order cancelled - Patient discharged Performed By: #### L 500.4050, L100.0100 ####[facility] [address] [place], [address] RBC Normal 4.2-5.4 [facility] Comment on above: Result Comment: Canc elled via OM: Order cancelled - Patient discharged Performed By: #### L 500.4050, L100.0100 ####[facility] [address], [address] RDW CV Normal 11.6-14.6 [facility] Comment on above: Result Comment: Canc elled via OM: Order cancelled - Patient discharged Performed By: #### L 500.4050, L100.0100 ####[facility] [address] [place], [address] RDW SD Normal 35.1-43.9 [facility] Comment on above: Result Comment: Canc elled via OM: Order cancelled - Patient discharged Performed By: #### L 500.4050, L100.0100 ####[facility] [address] [place], [address] WBC Normal 4.4-11.0 [facility] Comment on above: Result Comment: Canc elled via OM: Order cancelled - Patient discharged Performed By: #### L 500.4050, L100.0100 ####[facility] [address] [place], [address] Comprehensive Metabolic Prof ilon 11-24-2023 ALB Normal 3.2-5.0 [facility] Comment on above: Result Comment: Canc elled via OM: Order cancelled - Patient discharged Performed By: #### L 500.4050, L100.0100 ####[facility] [address] [place], [address] ALK P Normal 45-117 [facility] Comment on above: Result Comment: Canc elled via OM: Order cancelled - Patient discharged Performed By: #### L 500.4050, L100.0100 ####[facility] [address] [place], [address] ALT Normal 13-56 [facility] Comment on above: Result Comment: Canc elled via OM: Order cancelled - Patient discharged Performed By: #### L 500.4050, L100.0100 ####[facility] [address] [place], [address] AST Normal 15-37 [facility] Comment on above: Result Comment: Canc elled via OM: Order cancelled - Patient discharged Performed By: #### L 500.4050, L100.0100 ####[facility] [address] [place], [address] BUN Normal 7-18 [facility] Comment on above: Result Comment: Canc elled via OM: Order cancelled - Patient discharged Performed By: #### L 500.4050, L100.0100 ####[facility] [address] [place], [address] BUN/CRE Normal 10-20 [facility] Comment on above: Result Comment: Canc elled via OM: Order cancelled - Patient discharged Performed By: #### L 500.4050, L100.0100 ####[facility] [address] [place], [address] CA,Total Normal 8.5-10.1 [facility] Comment on above: Result Comment: Canc elled via OM: Order cancelled - Patient discharged Performed By: #### L 500.4050, L100.0100 ####[facility] [address] [place], [address] CL Normal 98-107 [facility] Comment on above: Result Comment: Canc elled via OM: Order cancelled - Patient discharged Performed By: #### L 500.4050, L100.0100 ####[facility] [address], [address] CO2 Normal 21.0-32.0 [facility] Comment on above: Result Comment: Canc elled via OM: Order cancelled - Patient discharged Performed By: #### L 500.4050, L100.0100 ####[facility] [address] [place], [address] CREAT,SERUM Normal 0.55-1.02 [facility] Comment on above: Result Comment: Canc elled via OM: Order cancelled - Patient discharged Performed By: #### L 500.4050, L100.0100 ####[facility] [address] [place], [address] EST GFR Normal >60 [facility] Comment on above: Result Comment: Canc elled via OM: Order cancelled - Patient discharged Performed By: #### L 500.4050, L100.0100 ####[facility] [address] [place], [address] EST GFR - AA Normal >60 [facility] Comment on above: Result Comment: Canc elled via OM: Order cancelled - Patient discharged Performed By: #### L 500.4050, L100.0100 ####[facility] [address] [place], [address] GAP Normal 5-15 [facility] Comment on above: Result Comment: Canc elled via OM: Order cancelled - Patient discharged Performed By: #### L 500.4050, L100.0100 ####[facility] [address] [place], [address] GLU Normal 74-106 [facility] Comment on above: Result Comment: Canc elled via OM: Order cancelled - Patient discharged Performed By: #### L 500.4050, L100.0100 ####[facility] [address] [place], [address] Potassium Normal 3.5-5.1 [facility] Comment on above: Result Comment: Canc elled via OM: Order cancelled - Patient discharged Performed By: #### L 500.4050, L100.0100 ####[facility] [address] [place], [address] T BILI Normal 0.20-1.00 [facility] Comment on above: Result Comment: Canc elled via OM: Order cancelled - Patient discharged Performed By: #### L 500.4050, L100.0100 ####[facility] [address] [place], [address] T PROT Normal 6.4-8.2 [facility] Comment on above: Result Comment: Canc elled via OM: Order cancelled - Patient discharged Performed By: #### L 500.4050, L100.0100 ####[facility] [address] [place], [address] Comprehensive Metabolic Profil Normal 136-145 [facility] Comment on above: Result Comment: Canc elled via OM: Order cancelled - Patient discharged Performed By: #### L 500.4050, L100.0100 ####[facility] [address] [place], [address] Culture, Blood (WB)on 2023 CUB Blood cultures x2, f rom two different sites No growth in [address] [facility] Comment on above: Performed By: #### L 503.6005, L300.3900, L501.5200, M200.1000, L100.0100, L500.4050, L501.3620, L501.4020, L300.4310 ####[facility] [address] [place], [address] CBC W/Diff, Automatedon 08-2 Absolute Neut Normal 2.0-7.7 [facility] Comment on above: Result Comment: Canc elled via OM: Order cancelled - Patient discharged Performed By: #### L 100.0100, L500.4050 ####[facility] [address] [place], [address] HCT Normal 37-47 [facility] Comment on above: Result Comment: Canc elled via OM: Order cancelled - Patient discharged Performed By: #### L 100.0100, L500.4050 ####[facility] [address] [place], [address] HGB Normal 12.0-15.0 [facility] Comment on above: Result Comment: Canc elled via OM: Order cancelled - Patient discharged Performed By: #### L 100.0100, L500.4050 ####[facility] [address] [place], [address] MCH Normal 27.0-32.0 [facility] Comment on above: Result Comment: Canc elled via OM: Order cancelled - Patient discharged Performed By: #### L 100.0100, L500.4050 ####[facility] [address] [place], [address] MCHC Normal 32-36 [facility] Comment on above: Result Comment: Canc elled via OM: Order cancelled - Patient discharged Performed By: #### L 100.0100, L500.4050 ####[facility] [address] [place], [address] MCV Normal 81-99 [facility] Comment on above: Result Comment: Canc elled via OM: Order cancelled - Patient discharged Performed By: #### L 100.0100, L500.4050 ####[facility] [address] [place], [address] NEUT% Normal 47-70 [facility] Comment on above: Result Comment: Canc elled via OM: Order cancelled - Patient discharged Performed By: #### L 100.0100, L500.4050 ####[facility] [address] [place], [address] PLT Normal 150-450 [facility] Comment on above: Result Comment: Canc elled via OM: Order cancelled - Patient discharged Performed By: #### L 100.0100, L500.4050 ####[facility] [address] [place], [address] RBC Normal 4.2-5.4 [facility] Comment on above: Result Comment: Canc elled via OM: Order cancelled - Patient discharged Performed By: #### L 100.0100, L500.4050 ####[facility] [address] [place], [address] RDW CV Normal 11.6-14.6 [facility] Comment on above: Result Comment: Canc elled via OM: Order cancelled - Patient discharged Performed By: #### L 100.0100, L500.4050 ####[facility] [address] [place], [address] RDW SD Normal 35.1-43.9 [facility] Comment on above: Result Comment: Canc elled via OM: Order cancelled - Patient discharged Performed By: #### L 100.0100, L500.4050 ####[facility] [address] [place], [address] WBC Normal 4.4-11.0 [facility] Comment on above: Result Comment: Canc elled via OM: Order cancelled - Patient discharged Performed By: #### L 100.0100, L500.4050 ####[facility] [address] [place], [address] Comprehensive Metabolic Prof ilon 11-23-2023 ALB Normal 3.2-5.0 [facility] Comment on above: Result Comment: Canc elled via OM: Order cancelled - Patient discharged Performed By: #### L 100.0100, L500.4050 ####[facility] [address] [place], [address] ALK P Normal 45-117 [facility] Comment on above: Result Comment: Canc elled via OM: Order cancelled - Patient discharged Performed By: #### L 100.0100, L500.4050 ####[facility] [address] [place], [address] ALT Normal 13-56 [facility] Comment on above: Result Comment: Canc elled via OM: Order cancelled - Patient discharged Performed By: #### L 100.0100, L500.4050 ####[facility] [address] [place], [address] AST Normal 15-37 [facility] Comment on above: Result Comment: Canc elled via OM: Order cancelled - Patient discharged Performed By: #### L 100.0100, L500.4050 ####[facility] [address] [place], [address] BUN Normal 7-18 [facility] Comment on above: Result Comment: Canc elled via OM: Order cancelled - Patient discharged Performed By: #### L 100.0100, L500.4050 ####[facility] [address] [place], [address] BUN/CRE Normal 10-20 [facility] Comment on above: Result Comment: Canc elled via OM: Order cancelled - Patient discharged Performed By: #### L 100.0100, L500.4050 ####[facility] [address] [place], [address] CA,Total Normal 8.5-10.1 [facility] Comment on above: Result Comment: Canc elled via OM: Order cancelled - Patient discharged Performed By: #### L 100.0100, L500.4050 ####[facility] [address], [address] CL Normal 98-107 [facility] Comment on above: Result Comment: Canc elled via OM: Order cancelled - Patient discharged Performed By: #### L 100.0100, L500.4050 ####[facility] [address] [place], [address] CO2 Normal 21.0-32.0 [facility] Comment on above: Result Comment: Canc elled via OM: Order cancelled - Patient discharged Performed By: #### L 100.0100, L500.4050 ####[facility] [address] [place], [address] CREAT,SERUM Normal 0.55-1.02 [facility] Comment on above: Result Comment: Canc elled via OM: Order cancelled - Patient discharged Performed By: #### L 100.0100, L500.4050 ####[facility] [address] [place], [address] EST GFR Normal >60 [facility] Comment on above: Result Comment: Canc elled via OM: Order cancelled - Patient discharged Performed By: #### L 100.0100, L500.4050 ####[facility] [address] [place], [address] EST GFR - AA Normal >60 [facility] Comment on above: Result Comment: Canc elled via OM: Order cancelled - Patient discharged Performed By: #### L 100.0100, L500.4050 ####[facility] [address] [place], [address] GAP Normal 5-15 [facility] Comment on above: Result Comment: Canc elled via OM: Order cancelled - Patient discharged Performed By: #### L 100.0100, L500.4050 ####[facility] [address] [place], [address] GLU Normal 74-106 [facility] Comment on above: Result Comment: Canc elled via OM: Order cancelled - Patient discharged Performed By: #### L 100.0100, L500.4050 ####[facility] [address] [place], [address] Potassium Normal 3.5-5.1 [facility] Comment on above: Result Comment: Canc elled via OM: Order cancelled - Patient discharged Performed By: #### L 100.0100, L500.4050 ####[facility] [address] [place], [address] T BILI Normal 0.20-1.00 [facility] Comment on above: Result Comment: Canc elled via OM: Order cancelled - Patient discharged Performed By: #### L 100.0100, L500.4050 ####[facility] [address] [place], [address] T PROT Normal 6.4-8.2 [facility] Comment on above: Result Comment: Canc elled via OM: Order cancelled - Patient discharged Performed By: #### L 100.0100, L500.4050 ####[facility] [address] [place], [address] Comprehensive Metabolic Profil Normal 136-145 [facility] Comment on above: Result Comment: Canc elled via OM: Order cancelled - Patient discharged Performed By: #### L 100.0100, L500.4050 ####[facility] [address] [place], [address] CBC W/Diff, Automatedon 08-2 Absolute Neut Normal 2.0-7.7 [facility] Comment on above: Result Comment: Canc elled via OM: Order cancelled - Patient discharged Performed By: #### L 100.0100, L500.4050 ####[facility] [address] [place], [address] HCT Normal 37-47 [facility] Comment on above: Result Comment: Canc elled via OM: Order cancelled - Patient discharged Performed By: #### L 100.0100, L500.4050 ####[facility] [address] [place], [address] HGB Normal 12.0-15.0 [facility] Comment on above: Result Comment: Canc elled via OM: Order cancelled - Patient discharged Performed By: #### L 100.0100, L500.4050 ####[facility] [address] [place], [address] MCH Normal 27.0-32.0 [facility] Comment on above: Result Comment: Canc elled via OM: Order cancelled - Patient discharged Performed By: #### L 100.0100, L500.4050 ####[facility] [address] [place], [address] MCHC Normal 32-36 [facility] Comment on above: Result Comment: Canc elled via OM: Order cancelled - Patient discharged Performed By: #### L 100.0100, L500.4050 ####[facility] [address] [place], [address] MCV Normal 81-99 [facility] Comment on above: Result Comment: Canc elled via OM: Order cancelled - Patient discharged Performed By: #### L 100.0100, L500.4050 ####[facility] [address] [place], [address] NEUT% Normal 47-70 [facility] Comment on above: Result Comment: Canc elled via OM: Order cancelled - Patient discharged Performed By: #### L 100.0100, L500.4050 ####[facility] [address] [place], [address] PLT Normal 150-450 [facility] Comment on above: Result Comment: Canc elled via OM: Order cancelled - Patient discharged Performed By: #### L 100.0100, L500.4050 ####[facility] [address] [place], [address] RBC Normal 4.2-5.4 [facility] Comment on above: Result Comment: Canc elled via OM: Order cancelled - Patient discharged Performed By: #### L 100.0100, L500.4050 ####[facility] [address] [place], [address] RDW CV Normal 11.6-14.6 [facility] Comment on above: Result Comment: Canc elled via OM: Order cancelled - Patient discharged Performed By: #### L 100.0100, L500.4050 ####[facility] [address] [place], [address] RDW SD Normal 35.1-43.9 [facility] Comment on above: Result Comment: Canc elled via OM: Order cancelled - Patient discharged Performed By: #### L 100.0100, L500.4050 ####[facility] [address] [place], [address] WBC Normal 4.4-11.0 [facility] Comment on above: Result Comment: Canc elled via OM: Order cancelled - Patient discharged Performed By: #### L 100.0100, L500.4050 ####[facility] [address] [place], [address] Comprehensive Metabolic Prof ilon 11-22-2023 ALB Normal 3.2-5.0 [facility] Comment on above: Result Comment: Canc elled via OM: Order cancelled - Patient discharged Performed By: #### L 100.0100, L500.4050 ####[facility] [address] [place], [address] ALK P Normal 45-117 [facility] Comment on above: Result Comment: Canc elled via OM: Order cancelled - Patient discharged Performed By: #### L 100.0100, L500.4050 ####[facility] [address] [place], [address] ALT Normal 13-56 [facility] Comment on above: Result Comment: Canc elled via OM: Order cancelled - Patient discharged Performed By: #### L 100.0100, L500.4050 ####[facility] [address] [place], [address] AST Normal 15-37 [facility] Comment on above: Result Comment: Canc elled via OM: Order cancelled - Patient discharged Performed By: #### L 100.0100, L500.4050 ####[facility] [address] [place], [address] BUN Normal 7-18 [facility] Comment on above: Result Comment: Canc elled via OM: Order cancelled - Patient discharged Performed By: #### L 100.0100, L500.4050 ####[facility] [address] [place], [address] BUN/CRE Normal 10-20 [facility] Comment on above: Result Comment: Canc elled via OM: Order cancelled - Patient discharged Performed By: #### L 100.0100, L500.4050 ####[facility] [address] [place], [address] CA,Total Normal 8.5-10.1 [facility] Comment on above: Result Comment: Canc elled via OM: Order cancelled - Patient discharged Performed By: #### L 100.0100, L500.4050 ####[facility] [address] [place], [address] CL Normal 98-107 [facility] Comment on above: Result Comment: Canc elled via OM: Order cancelled - Patient discharged Performed By: #### L 100.0100, L500.4050 ####[facility] [address] [place], [address] CO2 Normal 21.0-32.0 [facility] Comment on above: Result Comment: Canc elled via OM: Order cancelled - Patient discharged Performed By: #### L 100.0100, L500.4050 ####[facility] [address] [place], [address] CREAT,SERUM Normal 0.55-1.02 [facility] Comment on above: Result Comment: Canc elled via OM: Order cancelled - Patient discharged Performed By: #### L 100.0100, L500.4050 ####[facility] [address] [place], [address] EST GFR Normal >60 [facility] Comment on above: Result Comment: Canc elled via OM: Order cancelled - Patient discharged Performed By: #### L 100.0100, L500.4050 ####[facility] [address] [place], [address] EST GFR - AA Normal >60 [facility] Comment on above: Result Comment: Canc elled via OM: Order cancelled - Patient discharged Performed By: #### L 100.0100, L500.4050 ####[facility] [address] [place], [address] GAP Normal 5-15 [facility] Comment on above: Result Comment: Canc elled via OM: Order cancelled - Patient discharged Performed By: #### L 100.0100, L500.4050 ####[facility] [address] [place], [address] GLU Normal 74-106 [facility] Comment on above: Result Comment: Canc elled via OM: Order cancelled - Patient discharged Performed By: #### L 100.0100, L500.4050 ####[facility] [address] [place], [address] Potassium Normal 3.5-5.1 [facility] Comment on above: Result Comment: Canc elled via OM: Order cancelled - Patient discharged Performed By: #### L 100.0100, L500.4050 ####[facility] [address] [place], [address] T BILI Normal 0.20-1.00 [facility] Comment on above: Result Comment: Canc elled via OM: Order cancelled - Patient discharged Performed By: #### L 100.0100, L500.4050 ####[facility] [address] [place], [address] T PROT Normal 6.4-8.2 [facility] Comment on above: Result Comment: Canc elled via OM: Order cancelled - Patient discharged Performed By: #### L 100.0100, L500.4050 ####[facility] [address] [place], [address] Comprehensive Metabolic Profil Normal 136-145 [facility] Comment on above: Result Comment: Canc elled via OM: Order cancelled - Patient discharged Performed By: #### L 100.0100, L500.4050 ####[facility] [address] [place], [address] Basic Metabolic Profile (BMP )on 11-21-2023 BUN/CRE 15.4 RATIO Normal 10-20 [facility] Comment on above: Performed By: #### L 500.2500 ####[facility] [address] [place], [address] CA,Total 8.5 mg/dL Normal 8.5-10.1 [facility] Comment on above: Performed By: #### L 500.2500 ####[facility] [address] [place], [address] Chloride [Moles/Vol] 97 mmol/L Low 98-107 [facility] Comment on above: Performed By: #### L 500.2500 ####[facility] [address] [place], [address] CO2 [Moles/Vol] 26.0 mmol/L Normal 21.0-32.0 [facility] Comment on above: Performed By: #### L 500.2500 ####[facility] [address] [place], [address] Creatinine [Mass/Vol] 4.86 mg/dL High 0.55-1.02 [facility] Comment on above: Result Comment: The validity of the calculated GFR GFRAA in patients over70 years has not been determined. Clinical correlation isessential. Performed By: #### L 500.2500 ####[facility] [address] [place] [address] ECRCL 14.58 ml/min Normal [facility] Comment on above: Performed By: #### L 500.2500 ####[facility] [address] [place], [address] EST GFR - AA 12 mL/min Low >60 [facility] Comment on above: Result Comment: Afri can Czech GFR Calc Performed By: #### L 500.2500 ####[facility] [address] [place], [address] GAP 9 Normal 5-15 [facility] Comment on above: Performed By: #### L 500.2500 ####[facility] [address] [place], [address] GFR/1.73 sq M.predicted among non-blacks MDRD (S/P/Bld) [Vol rate/Area] 10 mL/min/{1.73_m2} Low >60 [facility] Comment on above: Result Comment: Non- GFR Calc Performed By: #### L 500.2500 ####[facility] [address], [address] Glucose [Mass/Vol] 325 mg/dL High 74-106 [facility] Comment on above: Result Comment: Gluc ose result greater than or equal to 200 mg/dLsuggests DIABETES MELLITUS per A.D.A. criteria. Performed By: #### L 500.2500 ####[facility] [address] [place], [address] Potassium [Moles/Vol] 4.0 mmol/L Normal 3.5-5.1 [facility] Comment on above: Performed By: #### L 500.2500 ####[facility] [address] [place], [address] Sodium [Moles/Vol] 132 mmol/L Low 136-145 [facility] Comment on above: Performed By: #### L 500.2500 ####[facility] [address] [place], [address] Urea nitrogen [Mass/Vol] 75 mg/dL High 7-18 [facility] Comment on above: Performed By: #### L 500.2500 ####[facility] [address] [place], [address] Bedside Glucoseon 11-21-2023 FINGERSTICK GLU 272 mg/dL High 74-106 [facility] Comment on above: Result Comment: GALA GEMENT OF PATIENT CARE PER NURSING PROTOCOL Performed By: #### L 501.080 ####[facility] [address] [place], [address] FINGERSTICK GLU 314 mg/dL High 74-106 [facility] Comment on above: Result Comment: GALA GEMENT OF PATIENT CARE PER NURSING PROTOCOL Performed By: #### L 501.080 ####[facility] [address] [place], [address] FINGERSTICK GLU 366 mg/dL High 74-106 [facility] Comment on above: Result Comment: GALA DENNISON OF PATIENT CARE PER NURSING PROTOCOL Performed By: #### L 501.080 ####[facility] [address] [place], [address] CBC W/Diff, Automatedon 08-2 Absolute Lymph 0.42 X10 3/uL Low 0.83-4.51 [facility] Comment on above: Performed By: #### L 500.4050, L100.0100 ####[facility] [address], [address] Absolute Neut 13.2 X10 3/uL High 2.0-7.7 [facility] Comment on above: Performed By: #### L 500.4050, L100.0100 ####[facility] [address] [place], [address] Basophils/100 WBC (Bld) 0.1 % Normal 0-1 [facility] Comment on above: Performed By: #### L 500.4050, L100.0100 ####[facility] [address] [place], [address] Eosinophils/100 WBC (Bld) 0.1 % Normal 0-5 [facility] Comment on above: Performed By: #### L 500.4050, L100.0100 ####[facility] [address] [place], [address] Erythrocyte distribution width (RBC) [Ratio] 15.2 % High 11.6-14.6 [facility] Comment on above: Performed By: #### L 500.4050, L100.0100 ####[facility] [address] [place], [address] Hematocrit (Bld) [Volume fraction] 27.4 % Low 37-47 [facility] Comment on above: Performed By: #### L 500.4050, L100.0100 ####[facility] [address] [place], [address] Hemoglobin (Bld) [Mass/Vol] 8.9 g/dL Low 12.0-15.0 [facility] Comment on above: Performed By: #### L 500.4050, L100.0100 ####[facility] [address] [place], [address] IG% 2.400 High 0.0-0.9 [facility] Comment on above: Result Comment: IG% - Immature Granulocytes (promyelocytes, myelocytes andmetamyelocytes) > 1% indicates that a LEFT SHIFT is Present. Performed By: #### L 500.4050, L100.0100 ####[facility] [address] [place], [address] Lymphocytes/100 WBC (Bld) 2.9 % Low 19-41 [facility] Comment on above: Performed By: #### L 500.4050, L100.0100 ####[facility] [address] [place], [address] MCH (RBC) [Entitic mass] 31.0 pg Normal 27.0-32.0 [facility] Comment on above: Performed By: #### L 500.4050, L100.0100 ####[facility] [address] [place], [address] MCHC (RBC) [Mass/Vol] 32.5 g/dL Normal 32-36 [facility] Comment on above: Performed By: #### L 500.4050, L100.0100 ####[facility] [address] [place], [address] MCV (RBC) [Entitic vol] 95.5 fL Normal 81-99 [facility] Comment on above: Performed By: #### L 500.4050, L100.0100 ####[facility] [address] [place], [address] Monocytes/100 WBC (Bld) 2.3 % Normal 0-10 [facility] Comment on above: Performed By: #### L 500.4050, L100.0100 ####[facility] [address] [place], [address] Neutrophils/100 WBC (Bld) 92.2 % High 47-70 [facility] Comment on above: Performed By: #### L 500.4050, L100.0100 ####[facility] [address] [place], [address] Nucleated RBC (Bld) [#/Vol] 0 10*3/uL Normal 0-5 [facility] Comment on above: Performed By: #### L 500.4050, L100.0100 ####[facility] [address] [place], [address] Platelet mean volume (Bld) [Entitic vol] 13.5 fL High 6.2-12.0 [facility] Comment on above: Performed By: #### L 500.4050, L100.0100 ####[facility] [address], [address] Platelets (Bld) [#/Vol] 165 10*3/uL Normal 150-450 [facility] Comment on above: Performed By: #### L 500.4050, L100.0100 ####[facility] [address] [place], [address] RBC (Bld) [#/Vol] 2.87 10*6/uL Low 4.2-5.4 [facility] Comment on above: Performed By: #### L 500.4050, L100.0100 ####[facility] [address] [place], [address] RDW SD 52.8 fl High 35.1-43.9 [facility] Comment on above: Performed By: #### L 500.4050, L100.0100 ####[facility] [address] [place], [address] WBC (Bld) [#/Vol] 14.3 10*3/uL High 4.4-11.0 [facility] Comment on above: Performed By: #### L 500.4050, L100.0100 ####[facility] [address] [place], [address] Comprehensive Metabolic Prof ilon 11-21-2023 Albumin [Mass/Vol] 2.9 g/dL Low 3.2-5.0 [facility] Comment on above: Performed By: #### L 500.4050, L100.0100 ####[facility] [address] [place], [address] Albumin/Globulin [Mass ratio] 0.9 {ratio} Normal 0.9-2.4 [facility] Comment on above: Performed By: #### L 500.4050, L100.0100 ####[facility] [address] [place], [address] ALK P 56 U/L Normal 45-117 [facility] Comment on above: Performed By: #### L 500.4050, L100.0100 ####[facility] [address] [place], [address] ALT [Catalytic activity/Vol] 32 U/L Normal 13-56 [facility] Comment on above: Performed By: #### L 500.4050, L100.0100 ####[facility] [address] [place], [address] AST [Catalytic activity/Vol] 31 U/L Normal 15-37 [facility] Comment on above: Performed By: #### L 500.4050, L100.0100 ####[facility] [address] [place], [address] Bilirubin [Mass/Vol] 0.70 mg/dL Normal 0.20-1.00 [facility] Comment on above: Result Comment: For patients on eltrombopag therapy, use of Dimension [place] TBIL is not recommended. Performed By: #### L 500.4050, L100.0100 ####[facility] [address] [place], [address] BUN/CRE 16.6 RATIO Normal 10-20 [facility] Comment on above: Performed By: #### L 500.4050, L100.0100 ####[facility] [address] [place], [address] CA,Total 7.6 mg/dL Low 8.5-10.1 [facility] Comment on above: Performed By: #### L 500.4050, L100.0100 ####[facility] [address] [place], [address] Chloride [Moles/Vol] 97 mmol/L Low 98-107 [facility] Comment on above: Performed By: #### L 500.4050, L100.0100 ####[facility] [address] [place], [address] CO2 [Moles/Vol] 20.0 mmol/L Low 21.0-32.0 [facility] Comment on above: Performed By: #### L 500.4050, L100.0100 ####[facility] [address] [place], [address] Creatinine [Mass/Vol] 7.10 mg/dL High 0.55-1.02 [facility] Comment on above: Result Comment: The validity of the calculated GFR GFRAA in patients over70 years has not been determined. Clinical correlation isessential. Performed By: #### L 500.4050, L100.0100 ####[facility] [address] [place], [address] ECRCL 10.14 ml/min Normal [facility] Comment on above: Performed By: #### L 500.4050, L100.0100 ####[facility] [address] [place], [address] EST GFR - AA 8 mL/min Low >60 [facility] Comment on above: Result Comment: Afri can Czech GFR Calc Performed By: #### L 500.4050, L100.0100 ####[facility] [address] [place], [address] GAP 14 Normal 5-15 [facility] Comment on above: Performed By: #### L 500.4050, L100.0100 ####[facility] [address] [place], [address] GFR/1.73 sq M.predicted among non-blacks MDRD (S/P/Bld) [Vol rate/Area] 6 mL/min/{1.73_m2} Low >60 [facility] Comment on above: Result Comment: Non- GFR Calc Performed By: #### L 500.4050, L100.0100 ####[facility] [address] [place], [address] Globulin (S) [Mass/Vol] 3.4 g/dL Normal 2.2-4.2 [facility] Comment on above: Performed By: #### L 500.4050, L100.0100 ####[facility] [address] [place], [address] Glucose [Mass/Vol] 355 mg/dL High 74-106 [facility] Comment on above: Result Comment: Gluc ose result greater than or equal to 200 mg/dLsuggests DIABETES MELLITUS per A.D.A. criteria. Performed By: #### L 500.4050, L100.0100 ####[facility] [address] [place], [address] Potassium [Moles/Vol] 5.5 mmol/L High 3.5-5.1 [facility] Comment on above: Performed By: #### L 500.4050, L100.0100 ####[facility] [address] [place], [address] Sodium [Moles/Vol] 131 mmol/L Low 136-145 [facility] Comment on above: Performed By: #### L 500.4050, L100.0100 ####[facility] [address] [place], [address] T PROT 6.3 g/dL Low 6.4-8.2 [facility] Comment on above: Performed By: #### L 500.4050, L100.0100 ####[facility] [address] [place], [address] Urea nitrogen [Mass/Vol] 118 mg/dL Invalid Interpretation Code 10-14 [facility] Comment on above: Result Comment: Crit ical Result(s) Called at: 05:31:02 11/21/2023 by: NoahBurns. mila Alatorre RN PCU. Results read back by same. Performed By: #### L 500.4050, L100.0100 ####[facility] [address] [place], [address] Discharge Instructionon 10-29 Discharge Instruction Normal [facility] Urine Cultureon 11-21-[address] [facility] Comment on above: Performed By: #### M 100.2200, L400.0001, M300.4600, M300.4500 ####[facility] [address] [place], [address] Basic Metabolic Profile (BMP )on 11-20-2023 BUN Normal 10-14 [facility] Comment on above: Result Comment: Canjulian duffy via OM: Ordered Performed By: #### L 500.2500 ####[facility] [address] [place], [address] BUN/CRE Normal 10-20 [facility] Comment on above: Result Comment: Canc elled via OM: MD Ordered Performed By: #### L 500.2500 ####[facility] [address] [place], [address] CA,Total Normal 8.5-10.1 [facility] Comment on above: Result Comment: Canc elled via OM: MD Ordered Performed By: #### L 500.2500 ####[facility] [address] [place], [address] CL Normal 98-107 [facility] Comment on above: Result Comment: Canc elled via OM: MD Ordered Performed By: #### L 500.2500 ####[facility] [address] [place], [address] CO2 Normal 21.0-32.0 [facility] Comment on above: Result Comment: Canc elled via OM: MD Ordered Performed By: #### L 500.2500 ####[facility] [address] [place], [address] CREAT,SERUM Normal 0.55-1.02 [facility] Comment on above: Result Comment: Canc elled via OM: MD Ordered Performed By: #### L 500.2500 ####[facility] [address] [place], [address] EST GFR Normal >60 [facility] Comment on above: Result Comment: Canc elled via OM: MD Ordered Performed By: #### L 500.2500 ####[facility] [address] [place], [address] EST GFR - AA Normal >60 [facility] Comment on above: Result Comment: Canc elled via OM: MD Ordered Performed By: #### L 500.2500 ####[facility] [address] [place], [address] GAP Normal 5-15 [facility] Comment on above: Result Comment: Canc elled via OM: MD Ordered Performed By: #### L 500.2500 ####[facility] [address] [place], [address] GLU Normal 74-106 [facility] Comment on above: Result Comment: Canc elled via OM: MD Ordered Performed By: #### L 500.2500 ####[facility] [address] [place], [address] Potassium Normal 3.5-5.1 [facility] Comment on above: Result Comment: Canc elled via OM: MD Ordered Performed By: #### L 500.2500 ####[facility] [address] [place], [address] Basic Metabolic Profile (BMP) Normal 136-145 [facility] Comment on above: Result Comment: Canc elled via OM: MD Ordered Performed By: #### L 500.2500 ####[facility] [address] [place], [address] Bedside Glucoseon 11-20-2023 FINGERSTICK GLU 442 mg/dL High 74-106 [facility] Comment on above: Result Comment: GALA GEMENT OF PATIENT CARE PER NURSING PROTOCOL Performed By: #### L 501.080 ####[facility] [address] [place], [address] FINGERSTICK GLU 345 mg/dL High 74-106 [facility] Comment on above: Result Comment: GALA GEMENT OF PATIENT CARE PER NURSING PROTOCOL Performed By: #### L 501.080 ####[facility] [address] [place], [address] FINGERSTICK GLU 247 mg/dL High 74-106 [facility] Comment on above: Result Comment: GALA GEMENT OF PATIENT CARE PER NURSING PROTOCOL Performed By: #### L 501.080 ####[facility] [address] [place], [address] FINGERSTICK GLU 123 mg/dL High [address] [place] [address] Comment on above: Result Comment: GALA GEMENT OF PATIENT CARE PER NURSING PROTOCOL Performed By: #### L 501.080 ####[facility] [address] [place], [address] FINGERSTICK GLU 129 mg/dL High -[address] [place] [address] Comment on above: Result Comment: GALA GEMENT OF PATIENT CARE PER NURSING PROTOCOL Performed By: #### L 501.080 ####[facility] [address] [place], [address] FINGERSTICK GLU 311 mg/dL High [address] [place] [address] Comment on above: Result Comment: GALA GEMENT OF PATIENT CARE PER NURSING PROTOCOL Performed By: #### L 501.080 ####[facility] [address], [address] FINGERSTICK GLU 474 mg/dL Invalid Interpretation Code [address] [place] [address] Comment on above: Result Comment: Repe at TestMANAGEMENT OF PATIENT CARE PER NURSING PROTOCOL Performed By: #### L 501.080 ####[facility] [address] [place], [address] FINGERSTICK GLU > 500 Invalid Interpretation Code [address] [place] [address] Comment on above: Result Comment: Insu kami GivenMANAGEMENT OF PATIENT CARE PER NURSING PROTOCOL Performed By: #### L 501.080 ####[facility] [address] [place], [address] CBC W/Diff, Automatedon 08-2 Absolute Lymph 0.45 X10 3/uL Low 0.83-4.51 [facility] Comment on above: Performed By: #### L 100.0100, L500.4050 ####[facility] [address] [place], [address] Absolute Neut 14.5 X10 3/uL High 2.0-7.7 [facility] Comment on above: Performed By: #### L 100.0100, L500.4050 ####[facility] [address] [place], [address] Basophils/100 WBC (Bld) 0.1 % Normal 0-1 [facility] Comment on above: Performed By: #### L 100.0100, L500.4050 ####[facility] [address] [place], [address] Eosinophils/100 WBC (Bld) 0.0 % Normal 0-5 [facility] Comment on above: Performed By: #### L 100.0100, L500.4050 ####[facility] [address] [place], [address] Erythrocyte distribution width (RBC) [Ratio] 15.2 % High 11.6-14.6 [facility] Comment on above: Performed By: #### L 100.0100, L500.4050 ####[facility] [address] [place], [address] Hematocrit (Bld) [Volume fraction] 29.1 % Low 37-47 [facility] Comment on above: Performed By: #### L 100.0100, L500.4050 ####[facility] [address] [place], [address] Hemoglobin (Bld) [Mass/Vol] 9.6 g/dL Low 12.0-15.0 [facility] Comment on above: Performed By: #### L 100.0100, L500.4050 ####[facility] [address] [place], [address] IG% 1.100 High 0.0-0.9 [facility] Comment on above: Result Comment: IG% - Immature Granulocytes (promyelocytes, myelocytes andmetamyelocytes) > 1% indicates that a LEFT SHIFT is Present. Performed By: #### L 100.0100, L500.4050 ####[facility] [address] [place], [address] Lymphocytes/100 WBC (Bld) 2.8 % Low 19-41 [facility] Comment on above: Performed By: #### L 100.0100, L500.4050 ####[facility] [address] [place], [address] MCH (RBC) [Entitic mass] 31.2 pg Normal 27.0-32.0 [facility] Comment on above: Performed By: #### L 100.0100, L500.4050 ####[facility] [address] [place], [address] MCHC (RBC) [Mass/Vol] 33.0 g/dL Normal 32-36 [facility] Comment on above: Performed By: #### L 100.0100, L500.4050 ####[facility] [address] [place], [address] MCV (RBC) [Entitic vol] 94.5 fL Normal 81-99 [facility] Comment on above: Performed By: #### L 100.0100, L500.4050 ####[facility] [address] [place], [address] Monocytes/100 WBC (Bld) 4.4 % Normal 0-10 [facility] Comment on above: Performed By: #### L 100.0100, L500.4050 ####[facility] [address] [place], [address] Neutrophils/100 WBC (Bld) 91.6 % High 47-70 [facility] Comment on above: Performed By: #### L 100.0100, L500.4050 ####[facility] [address] [place], [address] Nucleated RBC (Bld) [#/Vol] 0 10*3/uL Normal 0-5 [facility] Comment on above: Performed By: #### L 100.0100, L500.4050 ####[facility] [address] [place], [address] Platelet mean volume (Bld) [Entitic vol] 12.6 fL High 6.2-12.0 [facility] Comment on above: Performed By: #### L 100.0100, L500.4050 ####[facility] [address] [place], [address] Platelets (Bld) [#/Vol] 165 10*3/uL Normal 150-450 [facility] Comment on above: Performed By: #### L 100.0100, L500.4050 ####[facility] [address] [place], [address] RBC (Bld) [#/Vol] 3.08 10*6/uL Low 4.2-5.4 [facility] Comment on above: Performed By: #### L 100.0100, L500.4050 ####[facility] [address] [place], [address] RDW SD 52.5 fl High 35.1-43.9 [facility] Comment on above: Performed By: #### L 100.0100, L500.4050 ####[facility] [address] [place], [address] WBC (Bld) [#/Vol] 15.9 10*3/uL High 4.4-11.0 [facility] Comment on above: Performed By: #### L 100.0100, L500.4050 ####[facility] [address] [place], [address] Comprehensive Metabolic Prof [facility] 11-20-2023 Albumin [Mass/Vol] 2.9 g/dL Low 3.2-5.0 [facility] Comment on above: Performed By: #### L 100.0100, L500.4050 ####[facility] [address] [place], [address] Albumin/Globulin [Mass ratio] 0.8 {ratio} Low 0.9-2.4 [facility] Comment on above: Performed By: #### L 100.0100, L500.4050 ####[facility] [address] [place], [address] ALK P 66 U/L Normal 45-117 [facility] Comment on above: Performed By: #### L 100.0100, L500.4050 ####[facility] [address] [place], [address] ALT [Catalytic activity/Vol] 23 U/L Normal 13-56 [facility] Comment on above: Performed By: #### L 100.0100, L500.4050 ####[facility] [address] [place], [address] AST [Catalytic activity/Vol] 26 U/L Normal 15-37 [facility] Comment on above: Performed By: #### L 100.0100, L500.4050 ####[facility] [address] [place], [address] Bilirubin [Mass/Vol] 0.80 mg/dL Normal 0.20-1.00 [facility] Comment on above: Result Comment: For patients on eltrombopag therapy, use of Dimension [place] TBIL is not recommended. Performed By: #### L 100.0100, L500.4050 ####[facility] [address] [place], [address] BUN/CRE 14.6 RATIO Normal 10-20 [facility] Comment on above: Performed By: #### L 100.0100, L500.4050 ####[facility] [address] [place], [address] CA,Total 8.5 mg/dL Normal 8.5-10.1 [facility] Comment on above: Performed By: #### L 100.0100, L500.4050 ####[facility] [address] [place], [address] Chloride [Moles/Vol] 102 mmol/L Normal 98-107 [facility] Comment on above: Performed By: #### L 100.0100, L500.4050 ####[facility] [address] [place], [address] CO2 [Moles/Vol] 27.0 mmol/L Normal 21.0-32.0 [facility] Comment on above: Performed By: #### L 100.0100, L500.4050 ####[facility] [address] [place], [address] Creatinine [Mass/Vol] 6.02 mg/dL High 0.55-1.02 [facility] Comment on above: Result Comment: The validity of the calculated GFR GFRAA in patients over70 years has not been determined. Clinical correlation isessential. Performed By: #### L 100.0100, L500.4050 ####[facility] [address] [place], [address] ECRCL 11.96 ml/min Normal [facility] Comment on above: Performed By: #### L 100.0100, L500.4050 ####[facility] [address] [place], [address] EST GFR - AA 9 mL/min Low >60 [facility] Comment on above: Result Comment: Afri can Czech GFR Calc Performed By: #### L 100.0100, L500.4050 ####[facility] [address] [place], [address] GAP 8 Normal 5-15 [facility] Comment on above: Performed By: #### L 100.0100, L500.4050 ####[facility] [address] [place], [address] GFR/1.73 sq M.predicted among non-blacks MDRD (S/P/Bld) [Vol rate/Area] 8 mL/min/{1.73_m2} Low >60 [facility] Comment on above: Result Comment: Non- GFR Calc Performed By: #### L 100.0100, L500.4050 ####[facility] [address] [place], [address] Globulin (S) [Mass/Vol] 3.6 g/dL Normal 2.2-4.2 [facility] Comment on above: Performed By: #### L 100.0100, L500.4050 ####[facility] [address] [place], [address] Glucose [Mass/Vol] 137 mg/dL High 74-106 [facility] Comment on above: Result Comment: Fast ing Glucose result greater than or equal to 126 mg/dLsuggests DIABETES MELLITUS per A.D.A. criteria. Performed By: #### L 100.0100, L500.4050 ####[facility] [address] [place], [address] Potassium [Moles/Vol] 5.2 mmol/L High 3.5-5.1 [facility] Comment on above: Performed By: #### L 100.0100, L500.4050 ####[facility] [address] [place], [address] Sodium [Moles/Vol] 137 mmol/L Normal 136-145 [facility] Comment on above: Performed By: #### L 100.0100, L500.4050 ####[facility] [address] [place], [address] T PROT 6.5 g/dL Normal 6.4-8.2 [facility] Comment on above: Performed By: #### L 100.0100, L500.4050 ####[facility] [address] [place], [address] Urea nitrogen [Mass/Vol] 88 mg/dL High 7-18 [facility] Comment on above: Performed By: #### L 100.0100, L500.4050 ####[facility] [address] [place], [address] Consultation - Intensiviston 11-20-2023 Consultation - Manager Labor Delivery Normal [facility] M8200.1000on 11-20-2023 M8200.1000 Pending MRSA PCR MRSA NEGATIVE * This is an amended result. * A prior result that was reported as final has been changed. 11/21/23 0654 [facility] Comment on above: Performed By: #### M 8200.1000 ####[facility] [address] [place], [address] Vancomycin, Random Levelon 0 11-20-2023 VANCO, RANDOM 16.2 ug/mL High 0.0-15.0 [facility] Comment on above: Result Comment: VANC OMYCIN STANDARD DRUG THERAPY: CRITICAL VALUE IS > 15.0 mg/LVANCOMYCIN HIGH INTENSITY THERAPY: CRITICAL VALUE IS > 20.0 mg/LPLEASE CONTACT PHARMACY SERVICES (#8288) FOR INTERPRETATIONOF RESULTS. THIS RESULT DOES NOT REPRESENT A PEAK OR TROUGHLEVEL FOR THIS DRUG. Performed By: #### L 501.8850 ####[facility] [address] [place], [address] Basic Metabolic Profile (BMP )on 11-19-2023 BUN/CRE 12.6 RATIO Normal 10-20 [facility] Comment on above: Performed By: #### L 500.2500 ####[facility] [address] [place], [address] CA,Total 7.9 mg/dL Low 8.5-10.1 [facility] Comment on above: Performed By: #### L 500.2500 ####[facility] [address] [place], [address] Chloride [Moles/Vol] 101 mmol/L Normal 98-107 [facility] Comment on above: Performed By: #### L 500.2500 ####[facility] [address] [place], [address] CO2 [Moles/Vol] 26.0 mmol/L Normal 21.0-32.0 [facility] Comment on above: Performed By: #### L 500.2500 ####[facility] [address] [place], [address] Creatinine [Mass/Vol] 5.25 mg/dL High 0.55-1.02 [facility] Comment on above: Result Comment: The validity of the calculated GFR GFRAA in patients over70 years has not been determined. Clinical correlation isessential. Performed By: #### L 500.2500 ####[facility] [address] [place], [address] ECRCL 13.72 ml/min Normal [facility] Comment on above: Performed By: #### L 500.2500 ####[facility] [address] [place], [address] EST GFR - AA 11 mL/min Low >60 [facility] Comment on above: Result Comment: Afri can Czech GFR Calc Performed By: #### L 500.2500 ####[facility] [address] [place], [address] GAP 9 Normal 5-15 [facility] Comment on above: Performed By: #### L 500.2500 ####[facility] [address] [place], [address] GFR/1.73 sq M.predicted among non-blacks MDRD (S/P/Bld) [Vol rate/Area] 9 mL/min/{1.73_m2} Low >60 [facility] Comment on above: Result Comment: Non- GFR Calc Performed By: #### L 500.2500 ####[facility] [address] [place], [address] Glucose [Mass/Vol] 368 mg/dL High 74-106 [facility] Comment on above: Result Comment: Gluc ose result greater than or equal to 200 mg/dLsuggests DIABETES MELLITUS per A.D.A. criteria. Performed By: #### L 500.2500 ####[facility] [address] [place], [address] Potassium [Moles/Vol] 5.1 mmol/L Normal 3.5-5.1 [facility] Comment on above: Performed By: #### L 500.2500 ####[facility] [address] [place], [address] Sodium [Moles/Vol] 136 mmol/L Normal 136-145 [facility] Comment on above: Performed By: #### L 500.2500 ####[facility] [address] [place], [address] Urea nitrogen [Mass/Vol] 66 mg/dL High 7-18 [facility] Comment on above: Performed By: #### L 500.2500 ####[facility] [address] [place], [address] BUN/CRE 12.6 RATIO Normal 10-20 [facility] Comment on above: Performed By: #### L 100.0100, L500.2500 ####[facility] [address] [place], [address] CA,Total 7.9 mg/dL Low 8.5-10.1 [facility] Comment on above: Performed By: #### L 100.0100, L500.2500 ####[facility] [address] [place], [address] Chloride [Moles/Vol] 104 mmol/L Normal 98-107 [facility] Comment on above: Performed By: #### L 100.0100, L500.2500 ####[facility] [address] [place], [address] CO2 [Moles/Vol] 22.0 mmol/L Normal 21.0-32.0 [facility] Comment on above: Performed By: #### L 100.0100, L500.2500 ####[facility] [address] [place], [address] Creatinine [Mass/Vol] 6.91 mg/dL High 0.55-1.02 [facility] Comment on above: Result Comment: The validity of the calculated GFR GFRAA in patients over70 years has not been determined. Clinical correlation isessential. Performed By: #### L 100.0100, L500.2500 ####[facility] [address] [place], [address] ECRCL 10.59 ml/min Normal [facility] Comment on above: Performed By: #### L 100.0100, L500.2500 ####[facility] [address] [place], [address] EST GFR - AA 8 mL/min Low >60 [facility] Comment on above: Result Comment: Afri can Czech GFR Calc Performed By: #### L 100.0100, L500.2500 ####[facility] [address] [place], [address] GAP 9 Normal 5-15 [facility] Comment on above: Performed By: #### L 100.0100, L500.2500 ####[facility] [address] [place], [address] GFR/1.73 sq M.predicted among non-blacks MDRD (S/P/Bld) [Vol rate/Area] 7 mL/min/{1.73_m2} Low >60 [facility] Comment on above: Result Comment: Non- GFR Calc Performed By: #### L 100.0100, L500.2500 ####[facility] [address] [place], [address] Glucose [Mass/Vol] 241 mg/dL High 74-106 [facility] Comment on above: Result Comment: Gluc ose result greater than or equal to 200 mg/dLsuggests DIABETES MELLITUS per A.D.A. criteria. Performed By: #### L 100.0100, L500.2500 ####[facility] [address] [place], [address] Potassium [Moles/Vol] 6.0 mmol/L Invalid Interpretation Code 3.5-5.1 [facility] Comment on above: Result Comment: Crit ical Result(s) Called at: 07:17:53 11/19/2023 by: MAREK to Kala Roe. Results read back by same. Performed By: #### L 100.0100, L500.2500 ####[facility] [address] [place], [address] Sodium [Moles/Vol] 135 mmol/L Low 136-145 [facility] Comment on above: Performed By: #### L 100.0100, L500.2500 ####[facility] [address] [place], [address] Urea nitrogen [Mass/Vol] 87 mg/dL High 7-18 [facility] Comment on above: Performed By: #### L 100.0100, L500.2500 ####[facility] [address] [place], [address] Bedside Glucoseon 11-19-2023 FINGERSTICK GLU 301 mg/dL High 74-106 [facility] Comment on above: Result Comment: GALA GEMENT OF PATIENT CARE PER NURSING PROTOCOL Performed By: #### L 501.080 ####[facility] [address] [place], [address] FINGERSTICK GLU 271 mg/dL High 74-106 [facility] Comment on above: Result Comment: GALA GEMENT OF PATIENT CARE PER NURSING PROTOCOL Performed By: #### L 501.080 ####[facility] [address] [place], [address] FINGERSTICK GLU 227 mg/dL High 74-106 [facility] Comment on above: Result Comment: GALA GEMENT OF PATIENT CARE PER NURSING PROTOCOL Performed By: #### L 501.080 ####[facility] [address] [place], [address] FINGERSTICK GLU 181 mg/dL High 74-106 [facility] Comment on above: Result Comment: GALA GEMENT OF PATIENT CARE PER NURSING PROTOCOL Performed By: #### L 501.080 ####[facility] [address] [place], [address] CBC W/Diff, Automatedon 10-29 Absolute Lymph 0.43 X10 3/uL Low 0.83-4.51 [facility] Comment on above: Performed By: #### L 100.0100, L500.2500 ####[facility] [address] [place], [address] Absolute Neut 15.9 X10 3/uL High 2.0-7.7 [facility] Comment on above: Performed By: #### L 100.0100, L500.2500 ####[facility] [address] [place], [address] Basophils/100 WBC (Bld) 0.1 % Normal 0-1 [facility] Comment on above: Performed By: #### L 100.0100, L500.2500 ####[facility] [address] [place], [address] Eosinophils/100 WBC (Bld) 0.0 % Normal 0-5 [facility] Comment on above: Performed By: #### L 100.0100, L500.2500 ####[facility] [address] [place], [address] Erythrocyte distribution width (RBC) [Ratio] 15.3 % High 11.6-14.6 [facility] Comment on above: Performed By: #### L 100.0100, L500.2500 ####[facility] [address] [place], [address] Hematocrit (Bld) [Volume fraction] 33.2 % Low 37-47 [facility] Comment on above: Performed By: #### L 100.0100, L500.2500 ####[facility] [address] [place], [address] Hemoglobin (Bld) [Mass/Vol] 10.4 g/dL Low 12.0-15.0 [facility] Comment on above: Performed By: #### L 100.0100, L500.2500 ####[facility] [address] [place], [address] IG% 0.800 Normal 0.0-0.9 [facility] Comment on above: Result Comment: IG% - Immature Granulocytes (promyelocytes, myelocytes andmetamyelocytes) > 1% indicates that a LEFT SHIFT is Present. Performed By: #### L 100.0100, L500.2500 ####[facility] [address] [place], [address] Lymphocytes/100 WBC (Bld) 2.6 % Low 19-41 [facility] Comment on above: Performed By: #### L 100.0100, L500.2500 ####[facility] [address] [place], [address] MCH (RBC) [Entitic mass] 30.9 pg Normal 27.0-32.0 [facility] Comment on above: Performed By: #### L 100.0100, L500.2500 ####[facility] [address] [place], [address] MCHC (RBC) [Mass/Vol] 31.3 g/dL Low 32-36 [facility] Comment on above: Performed By: #### L 100.0100, L500.2500 ####[facility] [address] [place], [address] MCV (RBC) [Entitic vol] 98.5 fL Normal 81-99 [facility] Comment on above: Performed By: #### L 100.0100, L500.2500 ####[facility] [address] [place], [address] Monocytes/100 WBC (Bld) 1.7 % Normal 0-10 [facility] Comment on above: Performed By: #### L 100.0100, L500.2500 ####[facility] [address] [place], [address] Neutrophils/100 WBC (Bld) 94.8 % High 47-70 [facility] Comment on above: Performed By: #### L 100.0100, L500.2500 ####[facility] [address] [place], [address] Nucleated RBC (Bld) [#/Vol] 0 10*3/uL Normal 0-5 [facility] Comment on above: Performed By: #### L 100.0100, L500.2500 ####[facility] [address] [place], [address] Platelet mean volume (Bld) [Entitic vol] 13.2 fL High 6.2-12.0 [facility] Comment on above: Performed By: #### L 100.0100, L500.2500 ####[facility] [address] [place], [address] Platelets (Bld) [#/Vol] 130 10*3/uL Low 150-450 [facility] Comment on above: Performed By: #### L 100.0100, L500.2500 ####[facility] [address] [place], [address] RBC (Bld) [#/Vol] 3.37 10*6/uL Low 4.2-5.4 [facility] Comment on above: Performed By: #### L 100.0100, L500.2500 ####[facility] [address] [place], [address] RDW SD 54.9 fl High 35.1-43.9 [facility] Comment on above: Performed By: #### L 100.0100, L500.2500 ####[facility] [address] [place], [address] WBC (Bld) [#/Vol] 16.8 10*3/uL High 4.4-11.0 [facility] Comment on above: Performed By: #### L 100.0100, L500.2500 ####[facility] [address] [place], [address] Consultation - Nephrologyon 11-19-2023 Consultation - Nephrology Normal [facility] L501.4020on 11-19-2023 TROPONIN-I HS 48 pg/mL Normal 3.0-54.0 [facility] Comment on above: Order Comment: Comme nts: SPECIMEN #3'TROP' Serial specimen #1, #2 or #3: 3 Result Comment: Kaity olmedo Note: New Test Units and Gender Specific Reference Ranges. For more information see Policy Stat Procedure [place] High Sensitivity Troponin (TNIH) and attachments. Performed By: #### L 501.4020 ####[facility] [address] [place], [address] Legionella Antigen Urineon 0 11-19-[address] [facility] Comment on above: Performed By: #### M 100.2200, L400.0001, M300.4600, M300.4500 ####[facility] [address] [place], [address] Strep pneumoniae Antig(UR,CS F)on 11-19-[address] [facility] Comment on above: Performed By: #### M 100.2200, L400.0001, M300.4600, M300.4500 ####[facility] [address] [place], [address] Urinalysis, Completeon 11-18 BACTERIA 1+ /hpf Normal None Seen [facility] Comment on above: Order Comment: Urine , Random Performed By: #### M 100.2200, L400.0001, M300.4600, M300.4500 ####[facility] [address] [place], [address] EPI,SQUAMOUS 5-10 SEEN Normal 5-10 [facility] Comment on above: Order Comment: Urine , Random Performed By: #### M 100.2200, L400.0001, M300.4600, M300.4500 ####[facility] [address] [place], [address] RBC 5-10 SEEN Normal 0-5 [facility] Comment on above: Order Comment: Urine , Random Performed By: #### M 100.2200, L400.0001, M300.4600, M300.4500 ####[facility] [address] [place], [address] WBC 10-25 SEEN Normal 0-5 [facility] Comment on above: Order Comment: Urine , Random Performed By: #### M 100.2200, L400.0001, M300.4600, M300.4500 ####[facility] [address] [place], [address] Mucus Ql (Urine sed) 0 SEEN Normal [facility] Comment on above: Order Comment: Urine , Random Performed By: #### M 100.2200, L400.0001, M300.4600, M300.4500 ####[facility] [address] [place], [address] .Auto Diffon 11-18-2023 Basophil, Absolute 0.0 10 3/mcL Normal 0.0-0.2 [facility] ([place]) Comment on above: Performed By: #### L IPID, CBC, CMP, ADIFF, GFR, ANEU, TSH #### [address] [address] Basophils/100 WBC (Bld) 0.3 % Normal 0.0-2.5 [facility] ([place]) Comment on above: Performed By: #### L IPID, CBC, CMP, ADIFF, GFR, ANEU, TSH #### [address] [address] Eosinophil, Absolute 0.2 10 3/mcL Normal 0.0-0.4 [facility] ([place]) Comment on above: Performed By: #### L IPID, CBC, CMP, ADIFF, GFR, ANEU, TSH #### [address] [address] Eosinophils/100 WBC (Bld) 1.3 % Normal 0.0-7.0 [facility] ([place]) Comment on above: Performed By: #### L IPID, CBC, CMP, ADIFF, GFR, ANEU, TSH #### [address] [address] Lymphocyte, Absolute 0.6 10 3/mcL Low 0.8-3.9 [facility] ([place]) Comment on above: Performed By: #### L IPID, CBC, CMP, ADIFF, GFR, ANEU, TSH #### [address] [address] Lymphocytes/100 WBC (Bld) 5.0 % Low 10.0-50.0 [facility] ([place]) Comment on above: Performed By: #### L IPID, CBC, CMP, ADIFF, GFR, ANEU, TSH #### [address] [address] Monocyte, Absolute 0.8 10 3/mcL Normal 0.2-1.0 [facility] ([place]) Comment on above: Performed By: #### L IPID, CBC, CMP, ADIFF, GFR, ANEU, TSH #### [address] [address] Monocytes/100 WBC (Bld) 6.6 % Normal 1.7-13.0 [facility] ([place]) Comment on above: Performed By: #### L IPID, CBC, CMP, ADIFF, GFR, ANEU, TSH #### [address] [address] Neutrophils/100 WBC (Bld) 86.8 % High 37.0-80.0 [facility] ([place]) Comment on above: Performed By: #### L IPID, CBC, CMP, ADIFF, GFR, ANEU, TSH #### [address] [address] .GFRon 11-18-2023 GFR Non- 7 ml/min/1.73sqm Normal [facility] ([place]) Comment on above: Result Comment: GFR Population mean for , Non- Americans Ages 20-29 = 116 mL/min/1.73 sq.m. Ages 30-39 = 107 mL/min/1.73 sq.m. Ages 40-49 = 99 mL/min/1.73 sq.m. Ages 50-59 = 93 mL/min/1.73 sq.m. Ages 60-69 = 85 mL/min/1.73 sq.m. Ages 70+ = 75 mL/min/1.73 sq.m. Chronic Kidney Disease: Less than 60 mL/min/1.73 square meters End Stage Renal Disease: Less than 15 mL/min/1.73 square meters Performed By: #### L IPID, CBC, CMP, ADIFF, GFR, ANEU, TSH #### [address] [address] GFR 8 ml/min/1.73sqm Normal [facility] ([place]) Comment on above: Result Comment: GFR Population mean for , Non- Americans Ages 20-29 = 116 mL/min/1.73 sq.m. Ages 30-39 = 107 mL/min/1.73 sq.m. Ages 40-49 = 99 mL/min/1.73 sq.m. Ages 50-59 = 93 mL/min/1.73 sq.m. Ages 60-69 = 85 mL/min/1.73 sq.m. Ages 70+ = 75 mL/min/1.73 sq.m. Chronic Kidney Disease: Less than 60 mL/min/1.73 square meters End Stage Renal Disease: Less than 15 mL/min/1.73 square meters Performed By: #### L IPID, CBC, CMP, ADIFF, GFR, ANEU, TSH #### [address] [address] .MDWon 11-18-2023 Monocyte Distribution Width 16.85 Normal 0.00-20.00 [facility] ([place]) Comment on above: Result Comment: For ED adult patients suspected of sepsis, MDW<=20.0 does not rule out sepsis or risk of sepsis Performed By: #### L IPID, CBC, CMP, ADIFF, GFR, ANEU, TSH #### [address] [address] .NEUABSon 11-18-2023 Neutrophil, Absolute 10.6 10 3/mcL High 2.9-6.2 A [facility] ([place]) Comment on above: Performed By: #### L IPID, CBC, CMP, ADIFF, GFR, ANEU, TSH #### [address] [address] 12 Lead EKGon 11-18-20[address] [facility] BMPon 11-18-2023 BUN/Creatinine Ratio 13 ratio Normal 7-27 [facility] ([place]) Comment on above: Performed By: #### L IPID, CBC, CMP, ADIFF, GFR, ANEU, TSH #### [address] [address] Calcium [Mass/Vol] 8.3 mg/dL Low 8.4-10.2 [facility] ([place]) Comment on above: Performed By: #### L IPID, CBC, CMP, ADIFF, GFR, ANEU, TSH #### [address] [address] Chloride [Moles/Vol] 102 mmol/L Normal 98-107 [facility] ([place]) Comment on above: Performed By: #### L IPID, CBC, CMP, ADIFF, GFR, ANEU, TSH #### [address] [address] CO2 [Moles/Vol] 29 mmol/L Normal 22-29 [facility] ([place]) Comment on above: Performed By: #### L IPID, CBC, CMP, ADIFF, GFR, ANEU, TSH #### [address] [address] Creatinine [Mass/Vol] 6.39 mg/dL High 0.55-1.02 [facility] ([place]) Comment on above: Performed By: #### L IPID, CBC, CMP, ADIFF, GFR, ANEU, TSH #### [address] [address] Electrolyte Balance 8.0 mEq/L Normal 4.0-15.0 [facility] ([place]) Comment on above: Performed By: #### L IPID, CBC, CMP, ADIFF, GFR, ANEU, TSH #### [address] [address] Glucose [Mass/Vol] 261 mg/dL High 70-105 [facility] ([place]) Comment on above: Performed By: #### L IPID, CBC, CMP, ADIFF, GFR, ANEU, TSH #### [address] [place], [place] [address] Potassium [Moles/Vol] 5.8 mmol/L High 3.5-5.1 [facility] ([place]) Comment on above: Performed By: #### L IPID, CBC, CMP, ADIFF, GFR, ANEU, TSH #### [address] [place], [place] [address] Sodium [Moles/Vol] 139 mmol/L Normal 136-145 [facility] ([place]) Comment on above: Performed By: #### L IPID, CBC, CMP, ADIFF, GFR, ANEU, TSH #### [address] [place], [place] [address] Urea nitrogen [Mass/Vol] 81 mg/dL High 7-18 [facility] ([place]) Comment on above: Performed By: #### L IPID, CBC, CMP, ADIFF, GFR, ANEU, TSH #### [address] [place], [place] [address] Blood Gases by [facility] 024 JACKIE TEST Positive Normal [facility] Comment on above: Performed By: #### L 9000.0800 ####[facility] [address] [place], [address] Base excess Calc (Bld) [Moles/Vol] -1 mmol/L Normal -2 to +2 [facility] Comment on above: Performed By: #### L 9000.0800 ####[facility] [address] [place], [address] Blood Gas Type ART Normal [facility] Comment on above: Performed By: #### L 9000.0800 ####[facility] [address] [place], [address] CO2 [Moles/Vol] 24 mmol/L Normal [facility] Comment on above: Performed By: #### L 9000.0800 ####[facility] [address] [place], [address] [address] [facility] Comment on above: Performed By: #### L 9000.0800 ####[facility] [address] [place], [address] HCO3 (Bld) [Moles/Vol] 23.3 mmol/L Normal 22-[address] [facility] Comment on above: Performed By: #### L 9000.0800 ####[facility] [address] [place], [address] [address] Normal [facility] Comment on above: Performed By: #### L 9000.0800 ####[facility] [address] [place], [address] O2 Delivery Dev NRB Normal [facility] Comment on above: Performed By: #### L 9000.0800 ####[facility] [address] [place], [address] pCO2 37.1 mmHg Normal 35-45 [facility] Comment on above: Performed By: #### L 9000.0800 ####[facility] [address] [place], [address] pH (Bld) 7.41 [pH] Normal 7.35-7.45 [facility] Comment on above: Performed By: #### L 9000.0800 ####[facility] [address] [place], [address] PO2 72 mmHG Low 75-100 [facility] Comment on above: Performed By: #### L 9000.0800 ####[facility] [address] [place], [address] SITE L Radial Normal [facility] Comment on above: Performed By: #### L 9000.0800 ####[facility] [address] [place], [address] SO2 95 Normal 95-99 [facility] Comment on above: Performed By: #### L 9000.0800 ####[facility] [address] [place], [address] CBCon 11-18-2023 Erythrocyte distribution width (RBC) [Ratio] 17.2 % High 11.5-14.5 [facility] ([place]) Comment on above: Performed By: #### T ROPHS, GFR, CBC, BMP, PBNP, MDW, ANEU, ADIFF #### [address] [address] Hematocrit (Bld) [Volume fraction] 34.6 % Low 37.0-47.0 [facility] ([place]) Comment on above: Performed By: #### T ROPHS, GFR, CBC, BMP, PBNP, MDW, ANEU, ADIFF #### [address] [address] Hgb 11.5 G/dL Low 12.0-16.0 [facility] ([place]) Comment on above: Performed By: #### T CLAIREHS, GFR, CBC, BMP, PBNP, MDW, ANEU, ADIFF #### [address] [address] MCH (RBC) [Entitic mass] 31.9 pg High 27.0-31.2 [facility] ([place]) Comment on above: Performed By: #### T ROPHS, GFR, CBC, BMP, PBNP, MDW, ANEU, ADIFF #### [address] [address] MCHC 33.2 G/dL Normal 33.0-37.0 [facility] ([place]) Comment on above: Performed By: #### T ROPHS, GFR, CBC, BMP, PBNP, MDW, ANEU, ADIFF #### [address] [address] MCV (RBC) [Entitic vol] 95.9 fL High 80.0-94.0 [facility] ([place]) Comment on above: Performed By: #### T ROPHS, GFR, CBC, BMP, PBNP, MDW, ANEU, ADIFF #### [address] [address] Platelet 160 10 3/mcL Normal 130-400 [facility] ([place]) Comment on above: Performed By: #### T ROPHS, GFR, CBC, BMP, PBNP, MDW, ANEU, ADIFF #### [address] [address] Platelet mean volume (Bld) [Entitic vol] 11.0 fL High 7.4-10.4 [facility] ([place]) Comment on above: Performed By: #### T ROPHS, GFR, CBC, BMP, PBNP, MDW, ANEU, ADIFF #### [address] [address] RBC 3.61 10 6/mcL Low 4.20-5.40 [facility] ([place]) Comment on above: Performed By: #### T ROPHS, GFR, CBC, BMP, PBNP, MDW, ANEU, ADIFF #### [address] [address] WBC 12.2 10 3/mcL High 4.6-10.8 [facility] ([place]) Comment on above: Performed By: #### T ROPHS, GFR, CBC, BMP, PBNP, MDW, ANEU, ADIFF #### [address] [address] CBC W/Diff, Automatedon 10-29 Absolute Lymph 0.65 X10 3/uL Low 0.83-4.51 [facility] Comment on above: Performed By: #### L 503.6005, L300.3900, L501.5200, M200.1000, L100.0100, L500.4050, L501.3620, L501.4020, L300.4310 ####[facility] [address] [place], [place], [address] Absolute Neut 17.2 X10 3/uL High 2.0-7.7 [facility] Comment on above: Performed By: #### L 503.6005, L300.3900, L501.5200, M200.1000, L100.0100, L500.4050, L501.3620, L501.4020, L300.4310 ####[facility] [address] [place], [address] Basophils/100 WBC (Bld) 0.2 % Normal 0-1 [facility] Comment on above: Performed By: #### L 503.6005, L300.3900, L501.5200, M200.1000, L100.0100, L500.4050, L501.3620, L501.4020, L300.4310 ####[facility] [address] [place], [address] Eosinophils/100 WBC (Bld) 0.3 % Normal 0-5 [facility] Comment on above: Performed By: #### L 503.6005, L300.3900, L501.5200, M200.1000, L100.0100, L500.4050, L501.3620, L501.4020, L300.4310 ####[facility] [address] [place], [address] Erythrocyte distribution width (RBC) [Ratio] 15.8 % High 11.6-14.6 [facility] Comment on above: Performed By: #### L 503.6005, L300.3900, L501.5200, M200.1000, L100.0100, L500.4050, L501.3620, L501.4020, L300.4310 ####[facility] [address] [place], [address] Hematocrit (Bld) [Volume fraction] 36.1 % Low 37-47 [facility] Comment on above: Performed By: #### L 503.6005, L300.3900, L501.5200, M200.1000, L100.0100, L500.4050, L501.3620, L501.4020, L300.4310 ####[facility] [address] [place], [address] Hemoglobin (Bld) [Mass/Vol] 11.6 g/dL Low 12.0-15.0 [facility] Comment on above: Performed By: #### L 503.6005, L300.3900, L501.5200, M200.1000, L100.0100, L500.4050, L501.3620, L501.4020, L300.4310 ####[facility] [address] [facility] [place], [address] IG% 0.700 Normal 0.0-0.9 [facility] Comment on above: Result Comment: IG% - Immature Granulocytes (promyelocytes, myelocytes andmetamyelocytes) > 1% indicates that a LEFT SHIFT is Present. Performed By: #### L 503.6005, L300.3900, L501.5200, M200.1000, L100.0100, L500.4050, L501.3620, L501.4020, L300.4310 ####[facility] [address] [place], [address] Lymphocytes/100 WBC (Bld) 3.4 % Low 19-41 [facility] Comment on above: Performed By: #### L 503.6005, L300.3900, L501.5200, M200.1000, L100.0100, L500.4050, L501.3620, L501.4020, L300.4310 ####[facility] [address] [place], [address] MCH (RBC) [Entitic mass] 30.8 pg Normal 27.0-32.0 [facility] Comment on above: Performed By: #### L 503.6005, L300.3900, L501.5200, M200.1000, L100.0100, L500.4050, L501.3620, L501.4020, L300.4310 ####[facility] [address] [place], [address] MCHC (RBC) [Mass/Vol] 32.1 g/dL Normal 32-36 [facility] Comment on above: Performed By: #### L 503.6005, L300.3900, L501.5200, M200.1000, L100.0100, L500.4050, L501.3620, L501.4020, L300.4310 ####[facility] [address] [place], [address] MCV (RBC) [Entitic vol] 95.8 fL Normal 81-99 [facility] Comment on above: Performed By: #### L 503.6005, L300.3900, L501.5200, M200.1000, L100.0100, L500.4050, L501.3620, L501.4020, L300.4310 ####[facility] [id number] [place], [address] Monocytes/100 WBC (Bld) 6.4 % Normal 0-10 [facility] Comment on above: Performed By: #### L 503.6005, L300.3900, L501.5200, M200.1000, L100.0100, L500.4050, L501.3620, L501.4020, L300.4310 ####[facility] [address] [place], [address] Neutrophils/100 WBC (Bld) 89.0 % High 47-70 [facility] Comment on above: Performed By: #### L 503.6005, L300.3900, L501.5200, M200.1000, L100.0100, L500.4050, L501.3620, L501.4020, L300.4310 ####[facility] [address] [place], [address]( Nucleated RBC (Bld) [#/Vol] 0 10*3/uL Normal 0-5 [facility] Comment on above: Performed By: #### L 503.6005, L300.3900, L501.5200, M200.1000, L100.0100, L500.4050, L501.3620, L501.4020, L300.4310 ####[facility] [address] [place], [address]( Platelet mean volume (Bld) [Entitic vol] 13.0 fL High 6.2-12.0 [facility] Comment on above: Performed By: #### L 503.6005, L300.3900, L501.5200, M200.1000, L100.0100, L500.4050, L501.3620, L501.4020, L300.4310 ####[facility] [facility] [address] [place], [address] Platelets (Bld) [#/Vol] 207 10*3/uL Normal 150-450 [facility] Comment on above: Performed By: #### L 503.6005, L300.3900, L501.5200, M200.1000, L100.0100, L500.4050, L501.3620, L501.4020, L300.4310 ####[facility] [address] [place], [address] RBC (Bld) [#/Vol] 3.77 10*6/uL Low 4.2-5.4 [facility] Comment on above: Performed By: #### L 503.6005, L300.3900, L501.5200, M200.1000, L100.0100, L500.4050, L501.3620, L501.4020, L300.4310 ####[facility] [address] [place], [address] RDW SD 55.3 fl High 35.1-43.9 [facility] Comment on above: Performed By: #### L 503.6005, L300.3900, L501.5200, M200.1000, L100.0100, L500.4050, L501.3620, L501.4020, L300.4310 ####[facility] [address] [place], [place], [phone] WBC (Bld) [#/Vol] 19.3 10*3/uL High 4.4-11.0 [facility] Comment on above: Performed By: #### L 503.6005, L300.3900, L501.5200, M200.1000, L100.0100, L500.4050, L501.3620, L501.4020, L300.4310 ####[facility] [address] [place], [place], [phone] CPK Total, Creatine Kinaseon 11-18-2023 CPK TOTAL 86 U/L Normal 26-192 [facility] Comment on above: Order Comment: 'TROP ' Serial specimen #1, #2 or #3: 1 Performed By: #### L 503.6005, L300.3900, L501.5200, M200.1000, L100.0100, L500.4050, L501.3620, L501.4020, L300.4310 ####[facility] [address] [place], [place], [phone] Chest 1 View (Portable)on Chest 1 View (Portable) Normal [facility] Chest 1 View (Portable) Normal [facility] Comprehensive Metabolic Prof ilon 11-18-2023 Albumin [Mass/Vol] 3.1 g/dL Low 3.2-5.0 [facility] Comment on above: Order Comment: 'TROP ' Serial specimen #1, #2 or #3: 1 Performed By: #### L 503.6005, L300.3900, L501.5200, M200.1000, L100.0100, L500.4050, L501.3620, L501.4020, L300.4310 ####[facility] [address] [place], [address] Albumin/Globulin [Mass ratio] 0.8 {ratio} Low 0.9-2.4 [facility] Comment on above: Order Comment: 'TROP ' Serial specimen #1, #2 or #3: 1 Performed By: #### L 503.6005, L300.3900, L501.5200, M200.1000, L100.0100, L500.4050, L501.3620, L501.4020, L300.4310 ####[facility] [address] [place], [address](152) ALK P 89 U/L Normal 45-117 [facility] Comment on above: Order Comment: 'TROP ' Serial specimen #1, #2 or #3: 1 Performed By: #### L 503.6005, L300.3900, L501.5200, M200.1000, L100.0100, L500.4050, L501.3620, L501.4020, L300.4310 ####[facility] [address] [place], [address](638) ALT [Catalytic activity/Vol] 24 U/L Normal 13-56 [facility] Comment on above: Order Comment: 'TROP ' Serial specimen #1, #2 or #3: 1 Performed By: #### L 503.6005, L300.3900, L501.5200, M200.1000, L100.0100, L500.4050, L501.3620, L501.4020, L300.4310 ####[facility] [address] [place], [address]( AST [Catalytic activity/Vol] 25 U/L Normal 15-37 [facility] Comment on above: Order Comment: 'TROP ' Serial specimen #1, #2 or #3: 1 Performed By: #### L 503.6005, L300.3900, L501.5200, M200.1000, L100.0100, L500.4050, L501.3620, L501.4020, L300.4310 ####[facility] [address] [place], [place], [phone](469) Bilirubin [Mass/Vol] 0.60 mg/dL Normal 0.20-1.00 [facility] Comment on above: Order Comment: 'TROP ' Serial specimen #1, #2 or #3: 1 Result Comment: For patients on eltrombopag therapy, use of Dimension [place] TBIL is not recommended. Performed By: #### L 503.6005, L300.3900, L501.5200, M200.1000, L100.0100, L500.4050, L501.3620, L501.4020, L300.4310 ####[facility] [address] [place], [place], [phone] BUN/CRE 11.4 RATIO Normal 10-20 [facility] Comment on above: Order Comment: 'TROP ' Serial specimen #1, #2 or #3: 1 Performed By: #### L 503.6005, L300.3900, L501.5200, M200.1000, L100.0100, L500.4050, L501.3620, L501.4020, L300.4310 ####[facility] [address] [place], [place], [phone] CA,Total 8.1 mg/dL Low 8.5-10.1 [facility] Comment on above: Order Comment: 'TROP ' Serial specimen #1, #2 or #3: 1 Performed By: #### L 503.6005, L300.3900, L501.5200, M200.1000, L100.0100, L500.4050, L501.3620, L501.4020, L300.4310 ####[facility] [address] [place], [address] Chloride [Moles/Vol] 106 mmol/L Normal 98-107 [facility] Comment on above: Order Comment: 'TROP ' Serial specimen #1, #2 or #3: 1 Performed By: #### L 503.6005, L300.3900, L501.5200, M200.1000, L100.0100, L500.4050, L501.3620, L501.4020, L300.4310 ####[facility] [address] [place], [address] CO2 [Moles/Vol] 22.0 mmol/L Normal 21.0-32.0 [facility] Comment on above: Order Comment: 'TROP ' Serial specimen #1, #2 or #3: 1 Performed By: #### L 503.6005, L300.3900, L501.5200, M200.1000, L100.0100, L500.4050, L501.3620, L501.4020, L300.4310 ####[facility] [address] [place], [address] Creatinine [Mass/Vol] 6.40 mg/dL High 0.55-1.02 [facility] Comment on above: Order Comment: 'TROP ' Serial specimen #1, #2 or #3: 1 Result Comment: The validity of the calculated GFR GFRAA in patients over70 years has not been determined. Clinical correlation isessential. Performed By: #### L 503.6005, L300.3900, L501.5200, M200.1000, L100.0100, L500.4050, L501.3620, L501.4020, L300.4310 ####[facility] [address] [place], [address] ECRCL 11.44 ml/min Normal [facility] Comment on above: Order Comment: 'TROP ' Serial specimen #1, #2 or #3: 1 Performed By: #### L 503.6005, L300.3900, L501.5200, M200.1000, L100.0100, L500.4050, L501.3620, L501.4020, L300.4310 ####[facility] [address] [place], [place], [phone](984) EST GFR - AA 9 mL/min Low >60 [facility] Comment on above: Order Comment: 'TROP ' Serial specimen #1, #2 or #3: 1 Result Comment: Afri can Czech GFR Calc Performed By: #### L 503.6005, L300.3900, L501.5200, M200.1000, L100.0100, L500.4050, L501.3620, L501.4020, L300.4310 ####[facility] [address] [place], [place], [phone](935) GAP 7 Normal 5-15 [facility] Comment on above: Order Comment: 'TROP ' Serial specimen #1, #2 or #3: 1 Performed By: #### L 503.6005, L300.3900, L501.5200, M200.1000, L100.0100, L500.4050, L501.3620, L501.4020, L300.4310 ####[facility] [address] [place], [place], [phone](269) GFR/1.73 sq M.predicted among non-blacks MDRD (S/P/Bld) [Vol rate/Area] 7 mL/min/{1.73_m2} Low >60 [facility] Comment on above: Order Comment: 'TROP ' Serial specimen #1, #2 or #3: 1 Result Comment: Non- GFR Calc Performed By: #### L 503.6005, L300.3900, L501.5200, M200.1000, L100.0100, L500.4050, L501.3620, L501.4020, L300.4310 ####[facility] [address] [place], [place], [phone](988) Globulin (S) [Mass/Vol] 3.8 g/dL Normal 2.2-4.2 [facility] Comment on above: Order Comment: 'TROP ' Serial specimen #1, #2 or #3: 1 Performed By: #### L 503.6005, L300.3900, L501.5200, M200.1000, L100.0100, L500.4050, L501.3620, L501.4020, L300.4310 ####[facility] [address] [place], [address] Glucose [Mass/Vol] 153 mg/dL High 74-106 [facility] Comment on above: Order Comment: 'TROP ' Serial specimen #1, #2 or #3: 1 Result Comment: Fast ing Glucose result greater than or equal to 126 mg/dLsuggests DIABETES MELLITUS per A.D.A. criteria. Performed By: #### L 503.6005, L300.3900, L501.5200, M200.1000, L100.0100, L500.4050, L501.3620, L501.4020, L300.4310 ####[facility] [address] [place], [address] Potassium [Moles/Vol] 5.4 mmol/L High 3.5-5.1 [facility] Comment on above: Order Comment: 'TROP ' Serial specimen #1, #2 or #3: 1 Performed By: #### L 503.6005, L300.3900, L501.5200, M200.1000, L100.0100, L500.4050, L501.3620, L501.4020, L300.4310 ####[facility] [address] [place], [address] Sodium [Moles/Vol] 135 mmol/L Low 136-145 [facility] Comment on above: Order Comment: 'TROP ' Serial specimen #1, #2 or #3: 1 Performed By: #### L 503.6005, L300.3900, L501.5200, M200.1000, L100.0100, L500.4050, L501.3620, L501.4020, L300.4310 ####[facility] [address] [place], [address] T PROT 6.9 g/dL Normal 6.4-8.2 [facility] Comment on above: Order Comment: 'TROP ' Serial specimen #1, #2 or #3: 1 Performed By: #### L 503.6005, L300.3900, L501.5200, M200.1000, L100.0100, L500.4050, L501.3620, L501.4020, L300.4310 ####[facility] [address] [place], [address] Urea nitrogen [Mass/Vol] 73 mg/dL High 7-18 [facility] Comment on above: Order Comment: 'TROP ' Serial specimen #1, #2 or #3: 1 Performed By: #### L 503.6005, L300.3900, L501.5200, M200.1000, L100.0100, L500.4050, L501.3620, L501.4020, L300.4310 ####[facility] [address] [place], [address] H AND P Exam - Hospitaliston 11-18-2023 H&P Exam - Hospitalist Normal [facility] L501.4020on 11-18-2023 TROPONIN-I HS 47 pg/mL Normal 3.0-54.0 [facility] Comment on above: Order Comment: Comme nts: SPECIMEN #2'TROP' Serial specimen #1, #2 or #3: 2 Result Comment: Pleellie olmedo Note: New Test Units and Gender Specific Reference Ranges. For more information see Policy Stat Procedure [place] High Sensitivity Troponin (TNIH) and attachments. Performed By: #### L 501.4020 ####[facility] [address] [place], [address] TROPONIN-I HS 47 pg/mL Normal 3.0-54.0 [facility] Comment on above: Order Comment: 'TROP ' Serial specimen #1, #2 or #3: 1 Result Comment: Kaity olmedo Note: New Test Units and Gender Specific Reference Ranges. For more information see Policy Stat Procedure [place] High Sensitivity Troponin (TNIH) and attachments. Performed By: #### L 503.6005, L300.3900, L501.5200, M200.1000, L100.0100, L500.4050, L501.3620, L501.4020, L300.4310 ####[facility] [address] [place], [address] LABORATORYOrdered By: SYSTEM SYSTEM on 11-18-2023 Basophil, Absolute 0.0 103/mcL Normal 0.0 - 0.2 10^3/mcL AO Workflow SS Basophils/100 WBC (Bld) 0.3 % Normal 0.0 - 2.5 % AO Workflow SS Calcium [Mass/Vol] 8.3 mg/dL Low 8.4 - 10. 2 mg/dL AO ADM SS Chloride [Moles/Vol] 102 mmol/L Normal 98 - 10 7 mmol/L AO ADM SS CO2 [Moles/Vol] 29 mmol/L Normal 22 - 29 mmol/L AO ADM SS Creatinine [Mass/Vol] 6.39 mg/dL High 0.55 - 1.02 mg/dL AO ADM SS Electrolyte Balance 8.0 mEq/L Normal 4.0 - 15 .0 mEq/L AO ADM SS Eosinophil, Absolute 0.2 103/mcL Normal 0.0 - 0 .4 10^3/mcL AO Workflow SS Eosinophils/100 WBC (Bld) 1.3 % Normal 0.0 - 7.0 % AO Workflow SS Erythrocyte distribution width (RBC) [Ratio] 17.2 % High 11.5 - 14.5 % AO Workflow SS GFR/1.73 sq M.predicted among blacks MDRD (S/P/Bld) [Vol rate/Area] 8 ml/min/1.73sqm Invalid Interpretation Code AO Chemistry S Comment on above: Interpretive Data: GFR Population mean for , Non- Americans Ages 20-29 = 116 mL/min/1.73 sq.m. Ages 30-39 = 107 mL/min/1.73 sq.m. Ages 40-49 = 99 mL/min/1.73 sq.m. Ages 50-59 = 93 mL/min/1.73 sq.m. Ages 60-69 = 85 mL/min/1.73 sq.m. Ages 70+ = 75 mL/min/1.73 sq.m. Chronic Kidney Disease: Less than 60 mL/min/1.73 square meters End Stage Renal Disease: Less than 15 mL/min/1.73 square meters GFR/1.73 sq M.predicted among non-blacks MDRD (S/P/Bld) [Vol rate/Area] 7 ml/min/1.73sqm Invalid Interpretation Code AO Chemistry S Comment on above: Interpretive Data: GFR Population mean for , Non- Americans Ages 20-29 = 116 mL/min/1.73 sq.m. Ages 30-39 = 107 mL/min/1.73 sq.m. Ages 40-49 = 99 mL/min/1.73 sq.m. Ages 50-59 = 93 mL/min/1.73 sq.m. Ages 60-69 = 85 mL/min/1.73 sq.m. Ages 70+ = 75 mL/min/1.73 sq.m. Chronic Kidney Disease: Less than 60 mL/min/1.73 square meters End Stage Renal Disease: Less than 15 mL/min/1.73 square meters Glucose [Mass/Vol] 261 mg/dL High 70 - 105 mg/dL AO ADM SS Hematocrit (Bld) [Volume fraction] 34.6 % Low 37.0 - 47.0 % AO Workflow SS Hemoglobin (Bld) [Mass/Vol] 11.5 G/dL Low 12.0 - 16.0 G/dL AO Workflow SS Lymphocyte, Absolute 0.6 103/mcL Low 0.8 - 3 .9 10^3/mcL AO Workflow SS Lymphocytes/100 WBC (Bld) 5.0 % Low 10.0 - 50.0 % AO Workflow SS MCH (RBC) [Entitic mass] 31.9 pg High 27.0 - 31.2 pg AO Workflow SS MCHC 33.2 G/dL Normal 33.0 - 37.0 G/dL AO Workflow SS MCV (RBC) [Entitic vol] 95.9 fL High 80.0 - 94.0 fL AO Workflow SS Monocyte distribution width Auto (Bld) [Entitic vol] 16.85 1 Normal 0.00 - 20.00 AO Workflow SS Comment on above: Result Comment: For ED adult patients suspected of sepsis, MDW<=20.0 does not rule out sepsis or risk of sepsis Monocyte, Absolute 0.8 103/mcL Normal 0.2 - 1.0 10^3/mcL AO Workflow SS Monocytes/100 WBC (Bld) 6.6 % Normal 1.7 - 13.0 % AO Workflow SS Natriuretic peptide.B prohormone N-Terminal [Mass/Vol] 5757 pg/mL High 0 - 125 pg/mL AO ADM SS Comment on above: Interpretive Data: N T-proBNP results of less than 300 pg/mL effectively rules out acute congestive heart failure with 99% negative predictive value. Neutrophil, Absolute 10.6 103/mcL High 2.9 - 6 .2 10^3/mcL AO Workflow SS Neutrophils/100 WBC (Bld) 86.8 % High 37.0 - 80.0 % AO Workflow SS Platelet mean volume (Bld) [Entitic vol] 11.0 fL High 7.4 - 10.4 fL AO Workflow SS Platelets (Bld) [#/Vol] 160 103/mcL Normal 130 - 400 10^3/mcL AO Workflow SS Potassium [Moles/Vol] 5.8 mmol/L High 3.5 - 5.1 mmol/L AO ADM SS RBC (Bld) [#/Vol] 3.61 106/mcL Low 4.20 - 5.4 0 10^6/mcL AO Workflow SS Sodium [Moles/Vol] 139 mmol/L Normal 136 - 145 mmol/L AO ADM SS Troponin I.cardiac DL <= 0.01 ng/mL [Mass/Vol] 29 ng/L Normal 0 - 51 ng/L AO ADM SS Comment on above: Interpretive Data: H igh Sensitive Troponin I Reference Ranges: Female: 0-51 ng/L Male: 0-76 ng/L Testing performed on Folloze using a homogeneous sandwich chemiluminescent immunoassay based on [employer] technology. Urea nitrogen [Mass/Vol] 81 mg/dL High 7 - 18 mg/dL AO ADM SS Urea nitrogen/Creatinine [Mass ratio] 13 ratio Normal 7 - 27 ratio AO ADM SS WBC (Bld) [#/Vol] 12.2 103/mcL High 4.6 - 10.8 10^3/mcL AO Workflow SS Lactic Acidon 11-18-2023 Lactate [Moles/Vol] 1.3 mmol/L Normal 0.4-1.9 [facility] Comment on above: Order Comment: Comme nts: if result >2, system reflex orders 2nd test @ 4hrsY Performed By: #### L 503.6005, L300.3900, L501.5200, M200.1000, L100.0100, L500.4050, L501.3620, L501.4020, L300.4310 ####[facility] [address] [place], [place], [id number] M100.678on 11-18-2023 M100.678 Pending SARS-CoV-2 (COVID 19) Negative INFLUENZA A Negative INFLUENZA B Negative RSV PCR Negative Normal [facility] Comment on above: Performed By: #### M 100.678 ####[facility] [address] [place], [place], [phone] Magnesiumon 11-18-2023 Magnesium [Mass/Vol] 2.2 mg/dL Normal 1.6-2.6 [facility] Comment on above: Order Comment: 'TROP ' Serial specimen #1, #2 or #3: 1 Performed By: #### L 503.6005, L300.3900, L501.5200, M200.1000, L100.0100, L500.4050, L501.3620, L501.4020, L300.4310 ####[facility] [address] [place], [place], [phone] No Panel Informationon 11-17 Microscopic examination of blood, culture Culture has been received in lab and is no growth to date. Routine cultures are held for [address] [facility] Work Phone: PBNPon 11-18-2023 Natriuretic peptide B (Bld) [Mass/Vol] 5757 pg/mL High 0-125 [facility] ([place]) Comment on above: Result Comment: NT-p roBNP results of less than 300 pg/mL effectively rules out acute congestive heart failure with 99% negative predictive value. Performed By: #### L IPID, CBC, CMP, ADIFF, GFR, ANEU, TSH #### [place] [id number] [place], [place] [address] Partial Thromboplast Timeon 11-18-2023 aPTT Coag (Bld) [Time] 27.0 s Normal 24.1-36.2 [facility] Comment on above: Performed By: #### L 503.6005, L300.3900, L501.5200, M200.1000, L100.0100, L500.4050, L501.3620, L501.4020, L300.4310 ####[facility] [address] [place], [address] Prothrombin Time w/INRon INR Coag (PPP) [Relative time] 1.1 {INR} Normal [facility] Comment on above: Performed By: #### L 503.6005, L300.3900, L501.5200, M200.1000, L100.0100, L500.4050, L501.3620, L501.4020, L300.4310 ####[facility] [address] [place], [address] PT Coag (PPP) [Time] 14.0 s Normal 11.7-14.9 [facility] Comment on above: Performed By: #### L 503.6005, L300.3900, L501.5200, M200.1000, L100.0100, L500.4050, L501.3620, L501.4020, L300.4310 ####[facility] [address] [place], [address] RESPIRATORY PANEL MOLECULARo n 11-18-[address] [facility] Comment on above: Performed By: #### M 100.638 ####[facility] [address] [place], [address] [facility] 11-18-2023 High Sensitivity Troponin I 29 ng/L Normal 0-51 [facility] ([place]) Comment on above: Result Comment: High Sensitive Troponin I Reference Ranges: Female: 0-51 ng/L Male: 0-76 ng/L Testing performed on Folloze using a homogeneous sandwich chemiluminescent immunoassay based on [employer] technology. Performed By: #### L IPID, CBC, CMP, ADIFF, GFR, ANEU, TSH #### [place] [address] [place], [place] [address] XR CHEST 2 VIEWSon 4 XR CHEST 2 VIEWS ORIGINAL EXAMINATION: TWO XRAY VIEWS OF THE CHEST11/18/2023 11:56 am COMPARISON: 12/13/2021 HISTORY: ORDERING SYSTEM PROVIDED HISTORY: Reason for Exam: SOB/Cough/Fever FINDINGS: Enlarged cardiac silhouette and atherosclerosis.Multifoc al airspace disease is most confluent in the lower lungs. Nonspecific right apical density appears nodular. No pneumothorax seen. Small pleural effusions suspected. Degenerative changes seen of the shoulders and spine. Surgical clips project in the left axilla/left upper arm. No aggressive osseous lesions identified. IMPRESSION: Multifocal airspace disease. Correlate for signs of pneumonia. Small pleural effusions Focal density in the right apex could relate to an additional focus of airspace disease or a pulmonary nodule/lesion. Follow-up to resolution advised to exclude a neoplasm. If the density persists on short interval follow-up radiographs, CT will be necessary. Interpreted by: Gelacio He MD Preliminary Report By: Gelacio He MD Electronically signed By Gelacio He MD Dictated Date: 11/18/2023 12:00:35 PM Prelim Date: 11/18/2023 12:03:57 PM Sign Date: 11/18/2023 12:03:57 PM Ordering Provider: EVELINA Self [facility] ([place]) MA MAMMOGRAM SCREENING BILAT ERAL W/TOMOon 11-06-2023 MA MAMMOGRAM SCREENING BILATERAL W/JULIEN ORIGINAL FROM: [address] [address] PROCEDURE FOR: ZAYDA DAVIS [address] [place] [address] Home: PID#: [id number] Exam#: [id number] : 1965 Age: 57 TO: DENISSE SUTTON WASTE PICKER [address] [place] [place], [place] [address] Fax: NO FAX EXAMINATION: SCREENING DIGITAL BILATERAL MAMMOGRAM WITH TOMOSYNTHESIS, 11/05/2023 1:28 pm TECHNIQUE: Screening mammography of the bilateral breasts was performed with tomosynthesis. 2D standard and 3D tomosynthesis combination imaging performed through both breasts in the MLO and CC projection. Computer aided detection was utilized in the interpretation of this exam. COMPARISON: None. HISTORY: Breast cancer screening. FINDINGS: BREAST DENSITY: The breasts are almost entirely fatty. There are bilateral benign breast calcifications. There are no significant masses or calcifications. IMPRESSION: No mammographic evidence of malignancy. Continued screening with annual mammograms is recommended. Tyrmarah zick risk calculations, generated with the history provided, report this patient's 10 year risk and lifetime risk for developing breast cancer at 2.1% and 6.1%, respectively. Based on this assessment tool, if the patient's calculated lifetime risk is below 20%, then the patient is considered at average risk for developing breast cancer. If the patient's calculated lifetime risk is at or above 20%, then the patient is considered high risk for developing breast cancer and may be a candidate for supplemental breast MRI screening in addition to annual mammographic screening per the [employer]. BIRADS: BI-RADS: 2: Benign RECALL: 1 year screening RECALL TYPE: mammo LETTER SENT: Normal BI-RADS 1 and 2 Interpreted by: Tod Sterling MD Preliminary Report By: Tod Sterling MD Electronically signed By Tod Sterling MD Dictated Date: 11/06/2023 9:22:29 AM Prelim Date: 11/06/2023 9:24:29 AM Sign Date: 11/06/2023 9:24:29 AM Ordering Provider: DENISSE SUTTON CLINICAL: BASELINE. PATIENT STATES SHE HAS HAD A MAMMOGRAM MANY YEARS AGO, BUT IS UNSURE OF LOCATION. Computer Engineer: HINA GARCIA RT(R)(M)(CT) SURVEY CHIEF letter sent: Normal BI-RADS 1 and 2 Mammogram BI-RADS: 2 Benign Normal [facility] ([place]) XR TIBIA/FIBULA 2 VIEWS LEFT on 10-11-2023 XR TIBIA/FIBULA 2 VIEWS LEFT ORIGINAL EXAMINATION: TWO XRAY VIEWS OF THE LEFT TIBIA/FIBULA 10/11/2023 10:01 pm COMPARISON: None. HISTORY: ORDERING SYSTEM PROVIDED HISTORY: Reason for Exam: pain TECHNIQUE: AP and lateral views. FINDINGS: There are degenerative changes of the left knee joint with joint space narrowing, marginal osteophytes, and moderate enthesophyte at medial tibial plateau. There are enthesophytes at the superior patella. Joint spaces and articular surfaces are preserved and in gross anatomic alignment. There is no acute cortical discontinuity. There are soft tissue vascular calcifications. IMPRESSION: 1. There is no acute fracture or dislocation. Interpreted by: Danis Hamilton Preliminary Report By: Danis Hamilton Electronically signed By Danis Hamilton Dictated Date: 10/11/2023 10:07:24 PM Prelim Date: 10/11/2023 10:11:25 PM Sign Date: 10/11/2023 10:11:25 PM Ordering Provider: FREDDIE Self [facility] ([place]) BRIEF OP NOTon 09-08-2023 BRIEF OP NOT HNO ID: [id number] Author: JEREMY AGUIRRE MD Service: Interventional Radiology Author Type: Physician Type: Brief Op Note Filed: 09/08/2023 10:33 Note Text: BRIEF OPERATIVE / PROCEDURE NOTE LOG ID: [id number] SURGERY/PROCEDURE DATE: 09/08/2023 INCISION/PROCEDURE START TIME: 10:26 AM INCISION CLOSE/PROCEDURE END TIME: SURGEON(S)/PROCEDURALIST (S) AND KNIFE CUTTER(S): Surgeon(s) and Role: * Jeremy Aguirre MD, MD - Primary No Additional Staff SURGERY/PROCEDURE(S): Removal of tunneled dialysis catheter ANESTHESIA: Local FINDINGS: Successful removal ESTIMATED BLOOD LOSS: Minimal SPECIMENS: None COMPLICATIONS: None CLOSURE TECHNIQUE: Primary PRE-OP/PRE-PROCEDURE DIAGNOSIS: Renal failure POST-OP/POST-PROCEDURE DIAGNOSIS: Same as Preop SIGNATURE: Jeremy Aguirre MD PATIENT NAME: Zayda Davis DATE: September 08, 2023 TIME: 10:[address] [facility] IR CVC TUNNEL W/PORT REMOVEo n 09-08-2023 IR CVC TUNNEL W/PORT REMOVE * * *Final Report* * * DATE OF EXAM: Sep 08 2023 10:32AM [facility]LEX 7473 - IR CVC TUNNEL W/PORT REMOVE / PROCEDURE REASON: N18.6 * * * * Physician Interpretation * * * * PROCEDURE: TUNNELED CENTRAL VENOUS CATHETER REMOVAL Procedural Personnel Attending physician(s): Jeremy Aguirre MD Fellow physician(s): None Resident physician(s): None Advanced practice provider(s): None Medical Student(s): None Pre-procedure diagnosis: N18.6. Renal failure. Post-procedure diagnosis: Same Indication: Catheter no longer needed Additional clinical history: None PROCEDURE SUMMARY: - Tunneled central venous catheter removal - Additional procedure(s): None PROCEDURE DETAILS: Pre-procedure Consent: Risks, benefits, treatment options, potential complications and personnel to be involved were discussed (including the risks of radiation exposure, contrast and anesthesia administration, and any equipment needed for the procedure to ensure best possible outcome) with the patient and all questions were answered and consent was obtained prior to procedure. Transfusion of blood products: No Medication reconciliation: The patient's medications and allergies were reviewed in the electronic medical record and reconciled to the proposed procedure/treatment. Brenda-procedure discussion: The appropriate elements of the pre-procedure discussion, safety check list and sign-out were performed. Time out: A time out was performed immediately prior to procedure start with the nursing and interventional team, correctly identifying the name, date of , procedure, anatomy (including marking of site and side if applicable), patient position, procedure consent form, relevant diagnostic and radiology test results, antibiotic administration if applicable, safety precautions, and procedure-specific equipment needs. Start of procedure: 10:26 AM End of procedure: 10:33 AM Patient position: Supine Preparation: The site was prepared and draped using all elements of maximal sterile barrier technique including sterile gloves, sterile gown, cap, mask, large sterile sheet, hand hygiene and cutaneous antisepsis. Contrast None Image Guidance None Anesthesia/sedation Level of anesthesia/sedation: No sedation Anesthesia/sedation administered by: Not applicable Total intra-service sedation time (minutes): 0 Local anesthesia: Lidocaine Preparation The site was prepared and draped using maximal sterile barrier technique including cutaneous antisepsis. Catheter removal Local anesthesia was administered. The suture holding the catheter was severed and catheter was removed with gentle traction after blunt and sharp dissection. Closure Hemostasis was achieved with manual compression. Sterile dressing(s) applied. Additional Details Additional description of procedure: None Equipment details: None Number and Type of Removed Specimens: 0: N/A Estimated blood loss (mL): Less than 10 Standardized report: [email or web address] [id number] Complications There were no immediate complications and no other complications. Conclusion The patient was comfortable and was transferred to the patient's previous bed in stable condition. The procedure was performed by the: attending radiologist, without an cafe assistant. The attending radiologist performed the following procedural activities: Entire procedure IMPRESSION: REMOVAL OF RIGHT-SIDED TUNNELED DIALYSIS CATHETER. Plan: Please re-consult interventional radiology if new catheter placement is desired. Attestation Signer name: Jeremy Aguirre MD I attest that I was present for the entire procedure. I reviewed the stored images and agree with the report as written. Manager Of Care: ARIA Transcribe Date/Time: Sep 10 2023 9:55A Dictated by : JEREMY AGUIRRE MD This examination was interpreted and the report reviewed and electronically signed by: JEREMY AGUIRRE MD on Sep 10 2023 9:58AM EST [id number] [facility] .Auto Diffon 09-02-2023 Basophil, Absolute 0.0 10 3/mcL Normal 0.0-0.2 [facility] ([place]) Comment on above: Performed By: #### L IPID, CBC, CMP, ADIFF, GFR, ANEU, TSH #### [id number] [place], [place] [address] Basophils/100 WBC (Bld) 0.6 % Normal 0.0-2.5 [facility] ([place]) Comment on above: Performed By: #### L IPID, CBC, CMP, ADIFF, GFR, ANEU, TSH #### [address] [address] Eosinophil, Absolute 0.2 10 3/mcL Normal 0.0-0.4 [facility] ([place]) Comment on above: Performed By: #### L IPID, CBC, CMP, ADIFF, GFR, ANEU, TSH #### [address] [address] Eosinophils/100 WBC (Bld) 3.5 % Normal 0.0-7.0 [facility] ([place]) Comment on above: Performed By: #### L IPID, CBC, CMP, ADIFF, GFR, ANEU, TSH #### [address] [address] Lymphocyte, Absolute 0.8 10 3/mcL Normal 0.8-3.9 [facility] ([place]) Comment on above: Performed By: #### L IPID, CBC, CMP, ADIFF, GFR, ANEU, TSH #### [address] [address] Lymphocytes/100 WBC (Bld) 12.1 % Normal 10.0-50.0 [facility] ([place]) Comment on above: Performed By: #### L IPID, CBC, CMP, ADIFF, GFR, ANEU, TSH #### [address] [address] Monocyte, Absolute 0.7 10 3/mcL Normal 0.2-1.0 [facility] ([place]) Comment on above: Performed By: #### L IPID, CBC, CMP, ADIFF, GFR, ANEU, TSH #### [address] [address] Monocytes/100 WBC (Bld) 9.9 % Normal 1.7-13.0 [facility] ([place]) Comment on above: Performed By: #### L IPID, CBC, CMP, ADIFF, GFR, ANEU, TSH #### [address] [address] Neutrophils/100 WBC (Bld) 73.9 % Normal 37.0-80.0 [facility] ([place]) Comment on above: Performed By: #### L IPID, CBC, CMP, ADIFF, GFR, ANEU, TSH #### [address] [address] .GFRon 09-02-2023 GFR 12 ml/min/1.73sqm Normal [facility] ([place]) Comment on above: Result Comment: GFR Population mean for , Non- Americans Ages 20-29 = 116 mL/min/1.73 sq.m. Ages 30-39 = 107 mL/min/1.73 sq.m. Ages 40-49 = 99 mL/min/1.73 sq.m. Ages 50-59 = 93 mL/min/1.73 sq.m. Ages 60-69 = 85 mL/min/1.73 sq.m. Ages 70+ = 75 mL/min/1.73 sq.m. Chronic Kidney Disease: Less than 60 mL/min/1.73 square meters End Stage Renal Disease: Less than 15 mL/min/1.73 square meters Performed By: #### L IPID, CBC, CMP, ADIFF, GFR, ANEU, TSH #### [address] [address] GFR Non- 10 ml/min/1.73sqm Normal [facility] ([place]) Comment on above: Result Comment: GFR Population mean for , Non- Americans Ages 20-29 = 116 mL/min/1.73 sq.m. Ages 30-39 = 107 mL/min/1.73 sq.m. Ages 40-49 = 99 mL/min/1.73 sq.m. Ages 50-59 = 93 mL/min/1.73 sq.m. Ages 60-69 = 85 mL/min/1.73 sq.m. Ages 70+ = 75 mL/min/1.73 sq.m. Chronic Kidney Disease: Less than 60 mL/min/1.73 square meters End Stage Renal Disease: Less than 15 mL/min/1.73 square meters Performed By: #### L IPID, CBC, CMP, ADIFF, GFR, ANEU, TSH #### [place] [address] .NEUABSon 09-02-2023 Neutrophil, Absolute 4.9 10 3/mcL Normal 2.9-6.2 [facility] ([place]) Comment on above: Performed By: #### L IPID, CBC, CMP, ADIFF, GFR, ANEU, TSH #### [place] [address] CBCon 09-02-2023 Erythrocyte distribution width (RBC) [Ratio] 17.8 % High 11.5-14.5 [facility] ([place]) Comment on above: Performed By: #### L IPID, CBC, CMP, ADIFF, GFR, ANEU, TSH #### [place] [address] Hematocrit (Bld) [Volume fraction] 37.8 % Normal 37.0-47.0 [facility] ([place] Comment on above: Performed By: #### L IPID, CBC, CMP, ADIFF, GFR, ANEU, TSH #### [place] [address] Hgb 12.5 G/dL Normal 12.0-16.0 [facility] ([place] Comment on above: Performed By: #### L IPID, CBC, CMP, ADIFF, GFR, ANEU, TSH #### [place] [address] MCH (RBC) [Entitic mass] 32.4 pg High 27.0-31.2 [facility] ([place] Comment on above: Performed By: #### L IPID, CBC, CMP, ADIFF, GFR, ANEU, TSH #### [place] [address] MCHC 33.1 G/dL Normal 33.0-37.0 [facility] ([place] Comment on above: Performed By: #### L IPID, CBC, CMP, ADIFF, GFR, ANEU, TSH #### [place] [address] MCV (RBC) [Entitic vol] 98.0 fL High 80.0-94.0 [facility] ([place] Comment on above: Performed By: #### L IPID, CBC, CMP, ADIFF, GFR, ANEU, TSH #### [address] [address] Platelet 163 10 3/mcL Normal 130-400 [facility] ([place]) Comment on above: Performed By: #### L IPID, CBC, CMP, ADIFF, GFR, ANEU, TSH #### [address] [address] Platelet mean volume (Bld) [Entitic vol] 10.8 fL High 7.4-10.4 [facility] ([place] Comment on above: Performed By: #### L IPID, CBC, CMP, ADIFF, GFR, ANEU, TSH #### [address] [address] RBC 3.86 10 6/mcL Low 4.20-5.40 [facility] ([place] Comment on above: Performed By: #### L IPID, CBC, CMP, ADIFF, GFR, ANEU, TSH #### [address] [address] WBC 6.6 10 3/mcL Normal 4.6-10.8 [facility] ([place] Comment on above: Performed By: #### L IPID, CBC, CMP, ADIFF, GFR, ANEU, TSH #### [address] [address] CMPon 09-02-2023 Albumin Level 3.5 G/dL Normal 3.5-5.0 [facility] ([place] Comment on above: Performed By: #### L IPID, CBC, CMP, ADIFF, GFR, ANEU, TSH #### [address] [address] Albumin/Globulin [Mass ratio] 1.1 {ratio} Normal 1.1-2.5 [facility] ([place] Comment on above: Performed By: #### L IPID, CBC, CMP, ADIFF, GFR, ANEU, TSH #### [address] [address] ALP [Catalytic activity/Vol] 94 U/L Normal 40-135 [facility] ([place]) Comment on above: Performed By: #### L IPID, CBC, CMP, ADIFF, GFR, ANEU, TSH #### [address] [address] ALT [Catalytic activity/Vol] 37 U/L Normal 14-59 [facility] ([place]) Comment on above: Performed By: #### L IPID, CBC, CMP, ADIFF, GFR, ANEU, TSH #### [address] [address] AST [Catalytic activity/Vol] 28 U/L Normal 10-40 [facility] ([place]) Comment on above: Performed By: #### L IPID, CBC, CMP, ADIFF, GFR, ANEU, TSH #### [address] [address] Bili Total 0.6 mg/dL Normal 0.2-1.0 [facility] ([place]) Comment on above: Result Comment: Use of this assay is not recommended for patients undergoing treatment with eltrombopag due to the potential for falsely elevated results. Performed By: #### L IPID, CBC, CMP, ADIFF, GFR, ANEU, TSH #### [address] [address] BUN/Creatinine Ratio 8 ratio Normal 7-27 [facility] ([place]) Comment on above: Performed By: #### L IPID, CBC, CMP, ADIFF, GFR, ANEU, TSH #### [address] [address] Calcium [Mass/Vol] 8.2 mg/dL Low 8.4-10.2 [facility] ([place]) Comment on above: Performed By: #### L IPID, CBC, CMP, ADIFF, GFR, ANEU, TSH #### [address] [address] Chloride [Moles/Vol] 104 mmol/L Normal 98-107 [facility] ([place]) Comment on above: Performed By: #### L IPID, CBC, CMP, ADIFF, GFR, ANEU, TSH #### [address] [address] CO2 [Moles/Vol] 30 mmol/L High 22-29 [facility] ([place]) Comment on above: Performed By: #### L IPID, CBC, CMP, ADIFF, GFR, ANEU, TSH #### [address] [address] Creatinine [Mass/Vol] 4.66 mg/dL High 0.55-1.02 [facility] ([place]) Comment on above: Performed By: #### L IPID, CBC, CMP, ADIFF, GFR, ANEU, TSH #### [address] [address] Electrolyte Balance 9.0 mEq/L Normal 4.0-15.0 [facility] ([place]) Comment on above: Performed By: #### L IPID, CBC, CMP, ADIFF, GFR, ANEU, TSH #### [address] [address] Globulin 3.2 G/dL Normal [facility] ([place]) Comment on above: Performed By: #### L IPID, CBC, CMP, ADIFF, GFR, ANEU, TSH #### [address] [address] Glucose [Mass/Vol] 92 mg/dL Normal 70-105 [facility] ([place]) Comment on above: Performed By: #### L IPID, CBC, CMP, ADIFF, GFR, ANEU, TSH #### [address] [address] Potassium [Moles/Vol] 4.8 mmol/L Normal 3.5-5.1 [facility] ([place]) Comment on above: Performed By: #### L IPID, CBC, CMP, ADIFF, GFR, ANEU, TSH #### [address] [address] Sodium [Moles/Vol] 143 mmol/L Normal 136-145 [facility] ([place]) Comment on above: Performed By: #### L IPID, CBC, CMP, ADIFF, GFR, ANEU, TSH #### [address] [place], [place] [address] Total Protein 6.7 G/dL Normal 6.4-8.2 [facility] ([place]) Comment on above: Performed By: #### L IPID, CBC, CMP, ADIFF, GFR, ANEU, TSH #### [address] [place], [place] [address] Urea nitrogen [Mass/Vol] 36 mg/dL High 7-18 [facility] ([place]) Comment on above: Performed By: #### L IPID, CBC, CMP, ADIFF, GFR, ANEU, TSH #### [id number] [place], [place] [address] LABORATORYOrdered By: SYSTEM SYSTEM on 09-02-2023 Albumin BCP dye [Mass/Vol] 3.5 G/dL Normal 3.5 - 5.0 G/dL AO ADM SS Albumin/Globulin [Mass ratio] 1.1 {ratio} Normal 1.1 - 2.5 ratio AO ADM SS ALP [Catalytic activity/Vol] 94 U/L Normal 40 - 135 U/L AO ADM SS ALT With P-5'-P [Catalytic activity/Vol] 37 U/L Normal 14 - 59 U/L AO ADM SS AST With P-5'-P [Catalytic activity/Vol] 28 U/L Normal 10 - 40 U/L AO ADM SS Basophil, Absolute 0.0 103/mcL Normal 0.0 - 0.2 10^3/mcL AO Workflow SS Basophils/100 WBC (Bld) 0.6 % Normal 0.0 - 2.5 % AO Workflow SS Bilirubin [Mass/Vol] 0.6 mg/dL Normal 0.2 - 1 .0 mg/dL AO ADM SS Comment on above: Interpretive Data: U se of this assay is not recommended for patients undergoing treatment with eltrombopag due to the potential for falsely elevated results. Calcium [Mass/Vol] 8.2 mg/dL Low 8.4 - 10. 2 mg/dL AO ADM SS Chloride [Moles/Vol] 104 mmol/L Normal 98 - 10 7 mmol/L AO ADM SS CO2 [Moles/Vol] 30 mmol/L High 22 - 29 mmol/L AO ADM SS Creatinine [Mass/Vol] 4.66 mg/dL High 0.55 - 1.02 mg/dL AO ADM SS Electrolyte Balance 9.0 mEq/L Normal 4.0 - 15 .0 mEq/L AO ADM SS Eosinophil, Absolute 0.2 103/mcL Normal 0.0 - 0 .4 10^3/mcL AO Workflow SS Eosinophils/100 WBC (Bld) 3.5 % Normal 0.0 - 7.0 % AO Workflow SS Erythrocyte distribution width (RBC) [Ratio] 17.8 % High 11.5 - 14.5 % AO Workflow SS GFR/1.73 sq M.predicted among blacks MDRD (S/P/Bld) [Vol rate/Area] 12 ml/min/1.73sqm Invalid Interpretation Code AO Chemistry S Comment on above: Interpretive Data: GFR Population mean for , Non- Americans Ages 20-29 = 116 mL/min/1.73 sq.m. Ages 30-39 = 107 mL/min/1.73 sq.m. Ages 40-49 = 99 mL/min/1.73 sq.m. Ages 50-59 = 93 mL/min/1.73 sq.m. Ages 60-69 = 85 mL/min/1.73 sq.m. Ages 70+ = 75 mL/min/1.73 sq.m. Chronic Kidney Disease: Less than 60 mL/min/1.73 square meters End Stage Renal Disease: Less than 15 mL/min/1.73 square meters GFR/1.73 sq M.predicted among non-blacks MDRD (S/P/Bld) [Vol rate/Area] 10 ml/min/1.73sqm Invalid Interpretation Code AO Chemistry S Comment on above: Interpretive Data: GFR Population mean for , Non- Americans Ages 20-29 = 116 mL/min/1.73 sq.m. Ages 30-39 = 107 mL/min/1.73 sq.m. Ages 40-49 = 99 mL/min/1.73 sq.m. Ages 50-59 = 93 mL/min/1.73 sq.m. Ages 60-69 = 85 mL/min/1.73 sq.m. Ages 70+ = 75 mL/min/1.73 sq.m. Chronic Kidney Disease: Less than 60 mL/min/1.73 square meters End Stage Renal Disease: Less than 15 mL/min/1.73 square meters Globulin 3.2 G/dL Invalid Interpretation Code AO ADM SS Glucose [Mass/Vol] 92 mg/dL Normal 70 - 105 mg/dL AO ADM SS Hematocrit (Bld) [Volume fraction] 37.8 % Normal 37.0 - 47.0 % AO Workflow SS Hemoglobin (Bld) [Mass/Vol] 12.5 G/dL Normal 12.0 - 16.0 G/dL AO Workflow SS Lymphocyte, Absolute 0.8 103/mcL Normal 0.8 - 3 .9 10^3/mcL AO Workflow SS Lymphocytes/100 WBC (Bld) 12.1 % Normal 10.0 - 50.0 % AO Workflow SS MCH (RBC) [Entitic mass] 32.4 pg High 27.0 - 31.2 pg AO Workflow SS MCHC 33.1 G/dL Normal 33.0 - 37.0 G/dL AO Workflow SS MCV (RBC) [Entitic vol] 98.0 fL High 80.0 - 94.0 fL AO Workflow SS Monocyte, Absolute 0.7 103/mcL Normal 0.2 - 1.0 10^3/mcL AO Workflow SS Monocytes/100 WBC (Bld) 9.9 % Normal 1.7 - 13.0 % AO Workflow SS Neutrophil, Absolute 4.9 103/mcL Normal 2.9 - 6 .2 10^3/mcL AO Workflow SS Neutrophils/100 WBC (Bld) 73.9 % Normal 37.0 - 80.0 % AO Workflow SS Platelet mean volume (Bld) [Entitic vol] 10.8 fL High 7.4 - 10.4 fL AO Workflow SS Platelets (Bld) [#/Vol] 163 103/mcL Normal 130 - 400 10^3/mcL AO Workflow SS Potassium [Moles/Vol] 4.8 mmol/L Normal 3.5 - 5.1 mmol/L AO ADM SS Protein [Mass/Vol] 6.7 G/dL Normal 6.4 - 8.2 G/dL AO ADM SS RBC (Bld) [#/Vol] 3.86 106/mcL Low 4.20 - 5.4 0 10^6/mcL AO Workflow SS Sodium [Moles/Vol] 143 mmol/L Normal 136 - 145 mmol/L AO ADM SS TSH Qn 2.61 m[IU]/L Normal 0.36 - 3.74 mcIU/mL AO ADM SS Urea nitrogen [Mass/Vol] 36 mg/dL High 7 - 18 mg/dL AO ADM SS Urea nitrogen/Creatinine [Mass ratio] 8 ratio Normal 7 - 27 ratio AO ADM SS WBC (Bld) [#/Vol] 6.6 103/mcL Normal 4.6 - 10.8 10^3/mcL AO Workflow SS LABORATORYOrdered By: Regine Tompkins on 09-02-2023 Cholesterol [Mass/Vol] 103 mg/dL Normal 0 - 2 00 mg/dL AO ADM SS Comment on above: Interpretive Data: C holesterol Reference Interval: Less than 200 Desirable 200-239 Borderline high risk 240 and above High risk Cholesterol in HDL [Mass/Vol] 41 mg/dL Normal 40 - 60 mg/dL AO ADM SS Cholesterol in LDL [Mass/Vol] 40 mg/dL Normal 0 - 130 mg/dL AO ADM SS Triglyceride [Mass/Vol] 112 mg/dL Normal 0 - 150 mg/dL AO ADM SS Comment on above: Interpretive Data: T riglyceride Reference Interval: Less than 150 Normal 150-199 Borderline high risk 200-499 High risk 500 or higher Very high risk LIPIDon 09-02-2023 Cholesterol [Mass/Vol] 103 mg/dL Normal 0-200 [facility] ([place]) Comment on above: Result Comment: Chol esterol Reference Interval: Less than 200 Desirable 200-239 Borderline high risk 240 and above High risk Performed By: #### L IPID, CBC, CMP, ADIFF, GFR, ANEU, TSH #### [address] [address] Cholesterol in HDL [Mass/Vol] 41 mg/dL Normal 40-60 [facility] ([place]) Comment on above: Performed By: #### L IPID, CBC, CMP, ADIFF, GFR, ANEU, TSH #### [address] [address] Cholesterol in LDL [Mass/Vol] 40 mg/dL Normal 0-130 [facility] ([place]) Comment on above: Performed By: #### L IPID, CBC, CMP, ADIFF, GFR, ANEU, TSH #### [address] [address] Triglyceride [Mass/Vol] 112 mg/dL Normal 0-150 [facility] ([place]) Comment on above: Result Comment: Trig lyceride Reference Interval: Less than 150 Normal 150-199 Borderline high risk 200-499 High risk 500 or higher Very high risk Performed By: #### L IPID, CBC, CMP, ADIFF, GFR, ANEU, TSH #### [place] [address] TSHon 09-02-2023 TSH Qn 2.61 m[IU]/L Normal 0.36-3.74 [facility] ([place]) Comment on above: Performed By: #### L IPID, CBC, CMP, ADIFF, GFR, ANEU, TSH #### [place] [address] MALBRon 04-30-2023 U Creatinine 195.8 mg/dL High 28.0-117.0 [facility] ([place]) Comment on above: Performed By: #### M ALBR #### [place] [address] U Microalb >[address] Normal [facility] ([place]) Comment on above: Performed By: #### M ALBR #### [place] [id number] U Ratio Alb/Cre Unable to Calculate Normal 0-30 [facility] ([place]) Comment on above: Result Comment: Unab le to calculate this test result accurately. Results used to calculate this test are outside the reportable range. Performed By: #### M ALBR #### [place] [id number] LABORATORYOrdered By: Alyse Song on 04-29-2023 Albumin DL <= 20 mg/L (U) [Mass/Vol] mcg/dL Invalid Interpretation Code AO ADM SS Albumin/Creatinine DL <= 20 mg/L (U) [Mass ratio] Unable to Calculate Invalid Interpretation Code 0 - 30 AO ADM SS Comment on above: Result Comment: Unab le to calculate this test result accurately. Results used to calculate this test are outside the reportable range. Creatinine (U) [Mass/Vol] 195.8 mg/dL High 28.0 - 117.0 mg/dL AO ADM SS Thin prep Papanicolaou smear with manual screeningOrdered By: Cipriano Trujillo on 04-27-2023 Thin prep Papanicolaou smear with manual screening 198 mg/dL 74-106 [facility] Comment on above: MANAGEMENT OF PATIEN T CARE PER NURSING PROTOCOL Basophil percentageOrdered B y: Cipriano Trujillo on 04-24-2023 Chloride [Moles/Vol] 104 mmol/L 98-107 [facility] Glucose [Mass/Vol] 181 mg/dL 74-106 [facility] Comment on above: Fasting Glucose resu lt greater than or equal to 126 mg/dL suggests DIABETES MELLITUS per A.D.A. criteria. Hemoglobin (Bld) [Mass/Vol] 10.9 g/dL 12.0-15.0 [facility] Potassium [Moles/Vol] 4.8 mmol/L 3.5-5.1 [facility] Sodium [Moles/Vol] 137 mmol/L 136-145 [facility] WBC (Bld) [#/Vol] 6.7 10*3/uL 4.4-11.0 [facility] Determination of erythrocyte mean corpuscular volume (MCV)Ordered By: Cipriano Trujillo on 04-24-2023 MCV (RBC) [Entitic vol] 95.9 fL 81-99 [facility] Erythrocyte distribution wid th ratioOrdered By: Cipriano Trujillo on 04-24-2023 Erythrocyte distribution width (RBC) [Ratio] 14.1 % 11.6-14.6 [facility] Erythrocyte distribution wid th standard deviationOrdered By: Cipriano Trujillo on 04-24-2023 Erythrocyte distribution width (RBC) [Entitic vol] 49.1 fL 35.1-43.9 [facility] Hematocrit Auto (Bld) [Volum e fraction]Ordered By: Cipriano Trujillo on 04-24-2023 Hematocrit (Bld) [Volume fraction] 33.1 % 37-47 [facility] - Chemistry and C hemistry - challengeOrdered By: Cipriano Trujillo on 04-24-2023 CO2 [Moles/Vol] 27.0 mmol/L 21.0-32.0 [facility] Urea nitrogen/Creatinine [Mass ratio] 9.6 mg/mg 10-20 [facility] - Hematology and Cell countsOrdered By: Cipriano Trujillo on 04-24-2023 MCH (RBC) [Entitic mass] 31.6 pg 27.0-32.0 [facility] MCHC (RBC) [Mass/Vol] 32.9 g/dL 32-36 [facility] Platelets (Bld) [#/Vol] 165 10*3/uL 150-450 [facility] No Panel InformationOrdered By: Cipriano Trujillo on 04-24-2023 Estimated GFR (MDRD) Amer 9 mL/min >60 [facility] Comment on above: GFR Calc Estimated GFR (MDRD) Non-Af Amer 8 mL/min >60 [facility] Comment on above: Non- GFR Calc Platelet mean volume Justo-Ec ker (Bld) [Entitic vol]Ordered By: Cipriano Trujillo on 04-24-2023 Platelet mean volume (Bld) [Entitic vol] 12.5 fL 6.2-12.0 [facility] RBC Auto (Bld) [#/Vol]Ordere d By: Cipriano Trujillo on 04-24-2023 RBC (Bld) [#/Vol] 3.45 10*6/uL 4.2-5.4 [facility] Serum or plasma calcium brody urement (mass/volume)Ordered By: Cipriano Trujillo on 04-24-2023 Calcium [Mass/Vol] 9.0 mg/dL 8.5-10.1 [facility] Serum or plasma creatinine m easurement (mass/volume)Ordered By: Cipriano rTujillo on 04-24-2023 Creatinine [Mass/Vol] 6.04 mg/dL 0.55-1.02 [facility] Comment on above: The validity of the calculated GFR & GFRAA in patients over 70 years has not been determined. Clinical correlation is essential. Serum or plasma urea nitroge n measurement (mass/volume)Ordered By: Cipriano Trujillo on 04-24-2023 Urea nitrogen [Mass/Vol] 58 mg/dL 7-18 [facility] Thin prep Papanicolaou smear with manual screeningOrdered By: Cipriano Trujillo on 04-24-2023 Thin prep Papanicolaou smear with manual screening 6 5-15 [facility] Glucose Glucometer (BldC) [M ass/Vol]Ordered By: Cipriano Trujillo on 04-07-2023 Glucose [Mass/Vol] 161 mg/dL 74-106 [facility] Comment on above: MANAGEMENT OF PATIEN T CARE PER NURSING PROTOCOL Basophil percentageOrdered B y: Cipriano Trujillo on 04-02-2023 Chloride [Moles/Vol] 106 mmol/L 98-107 [facility] Glucose [Mass/Vol] 80 mg/dL 74-106 [facility] Potassium [Moles/Vol] 4.6 mmol/L 3.5-5.1 [facility] Sodium [Moles/Vol] 142 mmol/L 136-145 [facility] WBC (Bld) [#/Vol] 5.3 10*3/uL 4.4-11.0 [facility] Blood erythrocytes count (nu mber/volume)Ordered By: Cipriano Trujillo on 04-02-2023 RBC (Bld) [#/Vol] 3.56 10*6/uL 4.2-5.4 [facility] Blood hemoglobin measurement (mass/volume)Ordered By: Cipriano Trujillo on 04-02-2023 Hemoglobin (Bld) [Mass/Vol] 11.1 g/dL 12.0-15.0 [facility] Blood platelet mean volumeOr dered By: Cipriano Trujillo on 04-02-2023 Platelet mean volume (Bld) [Entitic vol] 12.8 fL 6.2-12.0 [facility] Determination of erythrocyte mean corpuscular volume (MCV)Ordered By: Cipriano Trujillo on 04-02-2023 MCV (RBC) [Entitic vol] 98.3 fL 81-99 [facility] Hematocrit Auto (Bld) [Volum e fraction]Ordered By: Cipriano Trujillo on 04-02-2023 Hematocrit (Bld) [Volume fraction] 35.0 % 37-47 [facility] - Chemistry and C hemistry - challengeOrdered By: Cipriano Trujillo on 04-02-2023 CO2 [Moles/Vol] 31.0 mmol/L 21.0-32.0 [facility] Urea nitrogen/Creatinine [Mass ratio] 7.9 mg/mg 10-20 [facility] - Hematology and Cell countsOrdered By: Cipriano Trujillo on 04-02-2023 Erythrocyte distribution width (RBC) [Entitic vol] 52.9 fL 35.1-43.9 [facility] Erythrocyte distribution width (RBC) [Ratio] 14.6 % 11.6-14.6 [facility] MCH (RBC) [Entitic mass] 31.2 pg 27.0-32.0 [facility] MCHC Auto (RBC) [Mass/Vol]Or dered By: Cipriano Trujillo on 04-02-2023 MCHC (RBC) [Mass/Vol] 31.7 g/dL 32-36 [facility] No Panel InformationOrdered By: Cipriano Trujillo on 04-02-2023 Estimated GFR (MDRD) Amer 14 mL/min >60 [facility] Comment on above: GFR Calc Estimated GFR (MDRD) Non-Af Amer 11 mL/min >60 [facility] Comment on above: Non- GFR Calc Platelets bldOrdered By: Betty Trujillo on 04-02-2023 Platelets (Bld) [#/Vol] 160 10*3/uL 150-450 [facility] Serum or plasma calcium brody urement (mass/volume)Ordered By: Cipriano Trujillo on 04-02-2023 Calcium [Mass/Vol] 8.4 mg/dL 8.5-10.1 [facility] Serum or plasma creatinine m easurement (mass/volume)Ordered By: Cipriano Trujillo on 04-02-2023 Creatinine [Mass/Vol] 4.29 mg/dL 0.55-1.02 [facility] Comment on above: The validity of the calculated GFR & GFRAA in patients over 70 years has not been determined. Clinical correlation is essential. Serum or plasma urea nitroge n measurement (mass/volume)Ordered By: Cipriano Trujillo on 04-02-2023 Urea nitrogen [Mass/Vol] 34 mg/dL 7-18 [facility] Thin prep Papanicolaou smear with manual screeningOrdered By: Cipriano Trujillo on 04-02-2023 Thin prep Papanicolaou smear with manual screening 5 5-15 [facility] Basophil percentageOrdered B y: Cipriano Trujillo on 01-22-2023 Chloride [Moles/Vol] 106 mmol/L 98-107 [facility] Glucose [Mass/Vol] 127 mg/dL 74-106 [facility] Comment on above: Fasting Glucose resu lt greater than or equal to 126 mg/dL suggests DIABETES MELLITUS per A.D.A. criteria. Potassium [Moles/Vol] 4.9 mmol/L 3.5-5.1 [facility] Sodium [Moles/Vol] 141 mmol/L 136-145 [facility] WBC (Bld) [#/Vol] 7.5 10*3/uL 4.4-11.0 [facility] Blood erythrocytes count (nu mber/volume)Ordered By: Cipriano Trujillo on 01-22-2023 RBC (Bld) [#/Vol] 3.42 10*6/uL 4.2-5.4 [facility] Blood hemoglobin measurement (mass/volume)Ordered By: Cipriano Trujillo on 01-22-2023 Hemoglobin (Bld) [Mass/Vol] 10.9 g/dL 12.0-15.0 [facility] Blood platelet mean volumeOr dered By: Cipriano Trujillo on 01-22-2023 Platelet mean volume (Bld) [Entitic vol] 11.6 fL 6.2-12.0 [facility] Determination of erythrocyte mean corpuscular volume (MCV)Ordered By: Cipriano Trujillo on 01-22-2023 MCV (RBC) [Entitic vol] 101.8 fL 81-99 [facility] Hematocrit Auto (Bld) [Volum e fraction]Ordered By: Cipriano Trujillo on 01-22-2023 Hematocrit (Bld) [Volume fraction] 34.8 % 37-47 [facility] Laboratory - Chemistry and C hemistry - challengeOrdered By: Cipriano Trujillo on 01-22-2023 CO2 [Moles/Vol] 28.0 mmol/L 21.0-32.0 [facility] Urea nitrogen/Creatinine [Mass ratio] 12.0 mg/mg 10-20 [facility] - Hematology and Cell countsOrdered By: Cipriano Trujillo on 01-22-2023 Erythrocyte distribution width (RBC) [Entitic vol] 57.2 fL 35.1-43.9 [facility] Erythrocyte distribution width (RBC) [Ratio] 15.6 % 11.6-14.6 [facility] MCH (RBC) [Entitic mass] 31.9 pg 27.0-32.0 [facility] MCHC Auto (RBC) [Mass/Vol]Or dered By: Cipriano Trujillo on 01-22-2023 MCHC (RBC) [Mass/Vol] 31.3 g/dL 32-36 [facility] No Panel InformationOrdered By: Cipriano Trujillo on 01-22-2023 Estimated GFR (MDRD) Amer 8 mL/min >60 [facility] Comment on above: GFR Calc Estimated GFR (MDRD) Non-Af Amer 7 mL/min >60 [facility] Comment on above: Non- GFR Calc Platelets bldOrdered By: Betty Trujillo on 01-22-2023 Platelets (Bld) [#/Vol] 153 10*3/uL 150-450 [facility] Serum or plasma calcium brody urement (mass/volume)Ordered By: Cipriano Trujillo on 01-22-2023 Calcium [Mass/Vol] 8.2 mg/dL 8.5-10.1 [facility] Serum or plasma creatinine m easurement (mass/volume)Ordered By: Cipriano Trujillo on 01-22-2023 Creatinine [Mass/Vol] 6.85 mg/dL 0.55-1.02 [facility] Comment on above: The validity of the calculated GFR & GFRAA in patients over 70 years has not been determined. Clinical correlation is essential. Serum or plasma urea nitroge n measurement (mass/volume)Ordered By: Cipriano Trujillo on 01-22-2023 Urea nitrogen [Mass/Vol] 82 mg/dL - [facility] Thin prep Papanicolaou smear with manual screeningOrdered By: Cipriano Trujillo on 01-22-2023 Thin prep Papanicolaou smear with manual screening 7 - [facility] LABORATORYOrdered By: Jazzmine Basilio on 11-18-2022 Glucose [Mass/Vol] 140 mg/dL Invalid Interpretation Code 70 - 110 mg/dL [facility] Work Phone: LABORATORYOrdered By: Jakub Anderson on 10-24-2022 Blood Glucose Testing Reason Routine (10/24/22 4:04 PM) [facility] Work Phone: Glucose [Mass/Vol] 185 mg/dL Invalid Interpretation Code 70 - 110 mg/dL [facility] Work Phone: LABORATORYOrdered By: Jerrell Schmidt on 10-24-2022 Blood Glucose Testing Reason Routine (10/24/22 11:39 AM) [facility] Work Phone: Glucose [Mass/Vol] 154 mg/dL Invalid Interpretation Code 70 - 110 mg/dL [facility] Work Phone: Blood Glucose Testing Reason Routine (10/24/22 8:31 AM) [facility] Work Phone: Glucose [Mass/Vol] 152 mg/dL Invalid Interpretation Code 70 - 110 mg/dL [facility] Work Phone: LABORATORYOrdered By: SYSTEM SYSTEM on 10-24-2022 Basophils (Bld) [#/Vol] 0.0 103/mcL Invalid Interpretation Code 0.0 - 0.3 10^3/mcL Workflow SS Basophils/100 WBC (Bld) 0.0 % Invalid Interpretation Code 0.0 - 2.5 % Workflow SS Calcium [Mass/Vol] 8.3 mg/dL Invalid Interpretation Code 8.7 - 10.4 mg/dL ADM SS Chloride [Moles/Vol] 106 mmol/L Invalid Interpretation Code 98 - 110 mEq/L ADM SS CO2 [Moles/Vol] 25 mmol/L Invalid Interpretation Code 22 - 32 mEq/L ADM SS Creatinine [Mass/Vol] 4.71 mg/dL Invalid Interpretation Code 0.50 - 1.20 mg/dL ADM SS Electrolyte Balance 9.0 mEq/L Invalid Interpretation Code 4.0 - 15.0 mEq/L ADM SS Eosinophils (Bld) [#/Vol] 0.3 103/mcL Invalid Interpretation Code 0.0 - 0.7 10^3/mcL AH Workflow SS Eosinophils/100 WBC (Bld) 4.0 % Invalid Interpretation Code 0.0 - 6.0 % Workflow SS Erythrocyte distribution width (RBC) [Ratio] 15.5 % Invalid Interpretation Code 11.5 - 15.5 % Workflow SS GFR/1.73 sq M.predicted among blacks MDRD (S/P/Bld) [Vol rate/Area] 12 ml/min/1.73sqm Invalid Interpretation Code [facility] Comment on above: Interpretive Data: GFR Population mean for , Non- Americans Ages 20-29 = 116 mL/min/1.73 sq.m. Ages 30-39 = 107 mL/min/1.73 sq.m. Ages 40-49 = 99 mL/min/1.73 sq.m. Ages 50-59 = 93 mL/min/1.73 sq.m. Ages 60-69 = 85 mL/min/1.73 sq.m. Ages 70+ = 75 mL/min/1.73 sq.m. Chronic Kidney Disease: Less than 60 mL/min/1.73 square meters End Stage Renal Disease: Less than 15 mL/min/1.73 square meters GFR/1.73 sq M.predicted among non-blacks MDRD (S/P/Bld) [Vol rate/Area] 10 ml/min/1.73sqm Invalid Interpretation Code [facility] Comment on above: Interpretive Data: GFR Population mean for , Non- Americans Ages 20-29 = 116 mL/min/1.73 sq.m. Ages 30-39 = 107 mL/min/1.73 sq.m. Ages 40-49 = 99 mL/min/1.73 sq.m. Ages 50-59 = 93 mL/min/1.73 sq.m. Ages 60-69 = 85 mL/min/1.73 sq.m. Ages 70+ = 75 mL/min/1.73 sq.m. Chronic Kidney Disease: Less than 60 mL/min/1.73 square meters End Stage Renal Disease: Less than 15 mL/min/1.73 square meters Glucose [Mass/Vol] 151 mg/dL Invalid Interpretation Code 70 - 110 mg/dL ADM Hematocrit (Bld) [Volume fraction] 29.7 % Invalid Interpretation Code 34.0 - 46.0 % Workflow Hemoglobin (Bld) [Mass/Vol] 9.9 G/dL Invalid Interpretation Code 12.0 - 16.0 G/dL Workflow Lymphocytes (Bld) [#/Vol] 0.7 103/mcL Invalid Interpretation Code 0.9 - 4.3 10^3/mcL AH Workflow SS Lymphocytes/100 WBC (Bld) 11.0 % Invalid Interpretation Code 20.0 - 40.0 % AH Workflow SS MCH (RBC) [Entitic mass] 31.9 pg Invalid Interpretation Code 27.0 - 33.0 pg AH Workflow SS MCHC 33.5 G/dL Invalid Interpretation Code 32.0 - 36.0 G/dL AH Workflow SS MCV (RBC) [Entitic vol] 95.4 fL Invalid Interpretation Code 80.0 - 99.0 fL AH Workflow SS Monocytes (Bld) [#/Vol] 1.3 103/mcL Invalid Interpretation Code 0.1 - 1.4 10^3/mcL AH Workflow SS Monocytes/100 WBC (Bld) 19.0 % Invalid Interpretation Code 2.0 - 13.0 % AH Workflow SS Myelocytes/100 WBC (Bld) 1.0 % Invalid Interpretation Code AH Workflow SS Neutrophils (Bld) [#/Vol] 4.5 103/mcL Invalid Interpretation Code 2.3 - 8.1 10^3/mcL AH Workflow SS Neutrophils/100 WBC (Bld) 65.0 % Invalid Interpretation Code 50.0 - 75.0 % AH Workflow SS Nucleated RBC 0.0 /100 WBC Invalid Interpretation Code AH Workflow SS Platelet mean volume (Bld) [Entitic vol] 12.1 fL Invalid Interpretation Code 6.6 - 10.5 fL AH Workflow SS Platelets (Bld) [#/Vol] 121 103/mcL Invalid Interpretation Code 150 - 450 10^3/mcL AH Workflow SS Platelets LM Ql (Bld) Slt Decreased *NA* (10/24/22 6:32 AM) Invalid Interpretation Code AH Workflow SS Potassium [Moles/Vol] 4.8 mmol/L Invalid Interpretation Code 3.5 - 5.0 mEq/L AH ADM SS Comment on above: Result Comment: Spec imen slightly hemolyzed. RBC (Bld) [#/Vol] 3.11 106/mcL Invalid Interpretation Code 4.10 - 5.30 10^6/mcL AH Workflow SS RBC morphology finding Nom (Bld) See Below 2 *NA* (10/24/22 6:32 AM) Invalid Interpretation Code AH Workflow SS Comment on above: Result Comment: RBC Morphology appears Normal Sodium [Moles/Vol] 140 mmol/L Invalid Interpretation Code 136 - 145 mEq/L AH ADM SS Urea nitrogen [Mass/Vol] 38.0 mg/dL Invalid Interpretation Code 8.0 - 22.0 mg/dL AH ADM SS Urea nitrogen/Creatinine [Mass ratio] 8.1 ratio Invalid Interpretation Code 10.0 - 22.0 ratio AH ADM SS WBC (Bld) [#/Vol] 6.9 103/mcL Invalid Interpretation Code 4.5 - 10.8 10^3/mcL AH Workflow SS LABORATORYOrdered By: SYSTEM SYSTEM on 10-23-2022 Albumin BCP dye [Mass/Vol] 4.1 G/dL Invalid Interpretation Code 3.2 - 4.8 G/dL ADM SS Albumin/Globulin [Mass ratio] 1.4 {ratio} Invalid Interpretation Code 0.9 - 1.6 ratio AH ADM SS ALP [Catalytic activity/Vol] 77 U/L Invalid Interpretation Code 38 - 126 U/L ADM SS ALT No additional P-5'-P [Catalytic activity/Vol] 57 U/L Invalid Interpretation Code 10 - 49 U/L ADM SS AST [Catalytic activity/Vol] 59 U/L Invalid Interpretation Code 8 - 34 U/L ADM SS Basophils (Bld) [#/Vol] 0.0 103/mcL Invalid Interpretation Code 0.0 - 0.3 10^3/mcL AH Workflow SS Basophils/100 WBC (Bld) 0.6 % Invalid Interpretation Code 0.0 - 2.5 % Workflow SS Bilirubin [Mass/Vol] 0.30 mg/dL Invalid Interpretation Code 0.20 - 1.20 mg/dL AH ADM SS Comment on above: Interpretive Data: U se of this assay is not recommended for patients undergoing treatment with eltrombopag due to the potential for falsely elevated results. Calcium [Mass/Vol] 8.9 mg/dL Invalid Interpretation Code 8.7 - 10.4 mg/dL AH ADM SS Chloride [Moles/Vol] 106 mmol/L Invalid Interpretation Code 98 - 110 mEq/L AH ADM SS CO2 [Moles/Vol] 27 mmol/L Invalid Interpretation Code 22 - 32 mEq/L AH ADM SS Creatinine [Mass/Vol] 3.92 mg/dL Invalid Interpretation Code 0.50 - 1.20 mg/dL AH ADM SS Electrolyte Balance 10.0 mEq/L Invalid Interpretation Code 4.0 - 15.0 mEq/L AH ADM SS Eosinophils (Bld) [#/Vol] 0.2 103/mcL Invalid Interpretation Code 0.0 - 0.7 10^3/mcL Workflow SS Eosinophils/100 WBC (Bld) 3.1 % Invalid Interpretation Code 0.0 - 6.0 % Workflow SS Erythrocyte distribution width (RBC) [Ratio] 15.5 % Invalid Interpretation Code 11.5 - 15.5 % Workflow SS GFR/1.73 sq M.predicted among blacks MDRD (S/P/Bld) [Vol rate/Area] 14 ml/min/1.73sqm Invalid Interpretation Code [facility] Comment on above: Interpretive Data: GFR Population mean for , Non- Americans Ages 20-29 = 116 mL/min/1.73 sq.m. Ages 30-39 = 107 mL/min/1.73 sq.m. Ages 40-49 = 99 mL/min/1.73 sq.m. Ages 50-59 = 93 mL/min/1.73 sq.m. Ages 60-69 = 85 mL/min/1.73 sq.m. Ages 70+ = 75 mL/min/1.73 sq.m. Chronic Kidney Disease: Less than 60 mL/min/1.73 square meters End Stage Renal Disease: Less than 15 mL/min/1.73 square meters GFR/1.73 sq M.predicted among non-blacks MDRD (S/P/Bld) [Vol rate/Area] 12 ml/min/1.73sqm Invalid Interpretation Code [facility] Comment on above: Interpretive Data: GFR Population mean for , Non- Americans Ages 20-29 = 116 mL/min/1.73 sq.m. Ages 30-39 = 107 mL/min/1.73 sq.m. Ages 40-49 = 99 mL/min/1.73 sq.m. Ages 50-59 = 93 mL/min/1.73 sq.m. Ages 60-69 = 85 mL/min/1.73 sq.m. Ages 70+ = 75 mL/min/1.73 sq.m. Chronic Kidney Disease: Less than 60 mL/min/1.73 square meters End Stage Renal Disease: Less than 15 mL/min/1.73 square meters Globulin 2.9 G/dL Invalid Interpretation Code 1.5 - 3.8 G/dL AH ADM SS Glucose [Mass/Vol] 126 mg/dL Invalid Interpretation Code 70 - 110 mg/dL AH ADM SS Hematocrit (Bld) [Volume fraction] 34.0 % Invalid Interpretation Code 34.0 - 46.0 % AH Workflow SS Hemoglobin (Bld) [Mass/Vol] 11.4 G/dL Invalid Interpretation Code 12.0 - 16.0 G/dL AH Workflow SS Lymphocytes (Bld) [#/Vol] 0.5 103/mcL Invalid Interpretation Code 0.9 - 4.3 10^3/mcL AH Workflow SS Lymphocytes/100 WBC (Bld) 9.5 % Invalid Interpretation Code 20.0 - 40.0 % AH Workflow SS MCH (RBC) [Entitic mass] 31.8 pg Invalid Interpretation Code 27.0 - 33.0 pg AH Workflow SS MCHC 33.6 G/dL Invalid Interpretation Code 32.0 - 36.0 G/dL AH Workflow SS MCV (RBC) [Entitic vol] 94.6 fL Invalid Interpretation Code 80.0 - 99.0 fL AH Workflow SS Monocyte distribution width Auto (Bld) [Entitic vol] 16.15 1 Invalid Interpretation Code 0.00 - 20.00 AH Workflow SS Comment on above: Result Comment: For ED adult patients suspected of sepsis, MDW<=20.0 does not rule out sepsis or risk of sepsis Monocytes (Bld) [#/Vol] 0.8 103/mcL Invalid Interpretation Code 0.1 - 1.4 10^3/mcL AH Workflow SS Monocytes/100 WBC (Bld) 13.9 % Invalid Interpretation Code 2.0 - 13.0 % AH Workflow SS Neutrophils (Bld) [#/Vol] 4.1 103/mcL Invalid Interpretation Code 2.3 - 8.1 10^3/mcL AH Workflow SS Neutrophils/100 WBC (Bld) 72.9 % Invalid Interpretation Code 50.0 - 75.0 % AH Workflow SS Platelet mean volume (Bld) [Entitic vol] 10.6 fL Invalid Interpretation Code 6.6 - 10.5 fL AH Workflow SS Platelets (Bld) [#/Vol] 134 103/mcL Invalid Interpretation Code 150 - 450 10^3/mcL AH Workflow SS Potassium [Moles/Vol] 4.4 mmol/L Invalid Interpretation Code 3.5 - 5.0 mEq/L AH ADM SS Protein [Mass/Vol] 7.0 G/dL Invalid Interpretation Code 5.7 - 8.2 G/dL AH ADM SS Comment on above: Interpretive Data: * *Note - New Reference Range in effect 19 RBC (Bld) [#/Vol] 3.60 106/mcL Invalid Interpretation Code 4.10 - 5.30 10^6/mcL AH Workflow SS Sodium [Moles/Vol] 143 mmol/L Invalid Interpretation Code 136 - 145 mEq/L AH ADM SS Urea nitrogen [Mass/Vol] 24.0 mg/dL Invalid Interpretation Code 8.0 - 22.0 mg/dL AH ADM SS Urea nitrogen/Creatinine [Mass ratio] 6.1 ratio Invalid Interpretation Code 10.0 - 22.0 ratio AH ADM SS WBC (Bld) [#/Vol] 5.7 103/mcL Invalid Interpretation Code 4.5 - 10.8 10^3/mcL AH Workflow SS LABORATORYOrdered By: SYSTEM SYSTEM on 08-29-2022 Albumin BCP dye [Mass/Vol] 3.8 G/dL Invalid Interpretation Code 3.5 - 5.0 G/dL AO ADM SS Albumin/Globulin [Mass ratio] 1.5 {ratio} Invalid Interpretation Code 1.1 - 2.5 ratio AO ADM SS ALP [Catalytic activity/Vol] 71 U/L Invalid Interpretation Code 40 - 135 U/L AO ADM SS ALT With P-5'-P [Catalytic activity/Vol] 33 U/L Invalid Interpretation Code 14 - 59 U/L AO ADM SS AST With P-5'-P [Catalytic activity/Vol] 25 U/L Invalid Interpretation Code 10 - 40 U/L AO ADM SS Bilirubin [Mass/Vol] 0.6 mg/dL Invalid Interpretation Code 0.2 - 1.0 mg/dL AO ADM SS Calcium [Mass/Vol] 8.6 mg/dL Invalid Interpretation Code 8.4 - 10.2 mg/dL AO ADM SS Chloride [Moles/Vol] 102 mmol/L Invalid Interpretation Code 98 - 107 mmol/L AO ADM SS CO2 [Moles/Vol] 30 mmol/L Invalid Interpretation Code 22 - 29 mmol/L AO ADM SS Creatinine [Mass/Vol] 4.58 mg/dL Invalid Interpretation Code 0.55 - 1.02 mg/dL AO ADM SS Electrolyte Balance 10.0 mEq/L Invalid Interpretation Code 4.0 - 15.0 mEq/L AO ADM SS GFR/1.73 sq M.predicted among blacks MDRD (S/P/Bld) [Vol rate/Area] 12 ml/min/1.73sqm Invalid Interpretation Code AO Chemistry S GFR/1.73 sq M.predicted among non-blacks MDRD (S/P/Bld) [Vol rate/Area] 10 ml/min/1.73sqm Invalid Interpretation Code AO Chemistry S Globulin 2.6 G/dL Invalid Interpretation Code AO ADM SS Glucose [Mass/Vol] 157 mg/dL Invalid Interpretation Code 70 - 105 mg/dL AO ADM SS Lipase [Catalytic activity/Vol] 46 U/L Invalid Interpretation Code 16 - 77 U/L AO ADM SS Potassium [Moles/Vol] 3.8 mmol/L Invalid Interpretation Code 3.5 - 5.1 mmol/L AO ADM SS Protein [Mass/Vol] 6.4 G/dL Invalid Interpretation Code 6.4 - 8.2 G/dL AO ADM SS Sodium [Moles/Vol] 142 mmol/L Invalid Interpretation Code 136 - 145 mmol/L AO ADM SS Urea nitrogen [Mass/Vol] 35 mg/dL Invalid Interpretation Code 7 - 18 mg/dL AO ADM SS Urea nitrogen/Creatinine [Mass ratio] 8 ratio Invalid Interpretation Code 7 - 27 ratio AO ADM SS LABORATORYOrdered By: Tobi Andersen on 08-29-2022 Basophil, Absolute 0.0 103/mcL Invalid Interpretation Code 0.0 - 0.2 10^3/mcL AO Workflow SS Basophils/100 WBC (Bld) 0.5 % Invalid Interpretation Code 0.0 - 2.5 % AO Workflow SS Eosinophil, Absolute 0.2 103/mcL Invalid Interpretation Code 0.0 - 0.4 10^3/mcL AO Workflow SS Eosinophils/100 WBC (Bld) 2.7 % Invalid Interpretation Code 0.0 - 7.0 % AO Workflow SS Erythrocyte distribution width (RBC) [Ratio] 16.2 % Invalid Interpretation Code 11.5 - 14.5 % AO Workflow SS Hematocrit (Bld) [Volume fraction] 35.3 % Invalid Interpretation Code 37.0 - 47.0 % AO Workflow SS Hemoglobin (Bld) [Mass/Vol] 11.8 G/dL Invalid Interpretation Code 12.0 - 16.0 G/dL AO Workflow SS Lymphocyte, Absolute 0.5 103/mcL Invalid Interpretation Code 0.8 - 3.9 10^3/mcL AO Workflow SS Lymphocytes/100 WBC (Bld) 6.9 % Invalid Interpretation Code 10.0 - 50.0 % AO Workflow SS MCH (RBC) [Entitic mass] 32.0 pg Invalid Interpretation Code 27.0 - 31.2 pg AO Workflow SS MCHC 33.3 G/dL Invalid Interpretation Code 33.0 - 37.0 G/dL AO Workflow SS MCV (RBC) [Entitic vol] 96.2 fL Invalid Interpretation Code 80.0 - 94.0 fL AO Workflow SS Monocyte distribution width Auto (Bld) [Entitic vol] 16.41 Invalid Interpretation Code 0.00 - 20.00 AO Workflow SS Comment on above: Result Comment: For ED adult patients suspected of sepsis, MDW<=20.0 does not rule out sepsis or risk of sepsis Monocyte, Absolute 0.6 103/mcL Invalid Interpretation Code 0.2 - 1.0 10^3/mcL AO Workflow SS Monocytes/100 WBC (Bld) 8.3 % Invalid Interpretation Code 1.7 - 13.0 % AO Workflow SS Neutrophil, Absolute 6.1 103/mcL Invalid Interpretation Code 2.9 - 6.2 10^3/mcL AO Workflow SS Neutrophils/100 WBC (Bld) 81.6 % Invalid Interpretation Code 37.0 - 80.0 % AO Workflow SS Platelet mean volume (Bld) [Entitic vol] 10.4 fL Invalid Interpretation Code 7.4 - 10.4 fL AO Workflow SS Platelets (Bld) [#/Vol] 130 103/mcL Invalid Interpretation Code 130 - 400 10^3/mcL AO Workflow SS RBC (Bld) [#/Vol] 3.67 106/mcL Invalid Interpretation Code 4.20 - 5.40 10^6/mcL AO Workflow SS WBC (Bld) [#/Vol] 7.4 103/mcL Invalid Interpretation Code 4.6 - 10.8 10^3/mcL AO Workflow SS LABORATORYOrdered By: Adrianna Rhodes on 08-06-2022 Basophil, Absolute 0.0 103/mcL Invalid Interpretation Code 0.0 - 0.2 10^3/mcL AO Workflow SS Basophils/100 WBC (Bld) 0.6 % Invalid Interpretation Code 0.0 - 2.5 % AO Workflow SS Eosinophil, Absolute 0.4 103/mcL Invalid Interpretation Code 0.0 - 0.4 10^3/mcL AO Workflow SS Eosinophils/100 WBC (Bld) 7.3 % Invalid Interpretation Code 0.0 - 7.0 % AO Workflow SS Erythrocyte distribution width (RBC) [Ratio] 16.2 % Invalid Interpretation Code 11.5 - 14.5 % AO Workflow SS Hematocrit (Bld) [Volume fraction] 31.6 % Invalid Interpretation Code 37.0 - 47.0 % AO Workflow SS Hemoglobin (Bld) [Mass/Vol] 10.6 G/dL Invalid Interpretation Code 12.0 - 16.0 G/dL AO Workflow SS Lymphocyte, Absolute 0.8 103/mcL Invalid Interpretation Code 0.8 - 3.9 10^3/mcL AO Workflow SS Lymphocytes/100 WBC (Bld) 13.1 % Invalid Interpretation Code 10.0 - 50.0 % AO Workflow SS MCH (RBC) [Entitic mass] 32.7 pg Invalid Interpretation Code 27.0 - 31.2 pg AO Workflow SS MCHC 33.5 G/dL Invalid Interpretation Code 33.0 - 37.0 G/dL AO Workflow SS MCV (RBC) [Entitic vol] 97.6 fL Invalid Interpretation Code 80.0 - 94.0 fL AO Workflow SS Monocyte, Absolute 0.6 103/mcL Invalid Interpretation Code 0.2 - 1.0 10^3/mcL AO Workflow SS Monocytes/100 WBC (Bld) 10.2 % Invalid Interpretation Code 1.7 - 13.0 % AO Workflow SS Neutrophil, Absolute 3.9 103/mcL Invalid Interpretation Code 2.9 - 6.2 10^3/mcL AO Workflow SS Neutrophils/100 WBC (Bld) 68.8 % Invalid Interpretation Code 37.0 - 80.0 % AO Workflow SS Platelet mean volume (Bld) [Entitic vol] 10.8 fL Invalid Interpretation Code 7.4 - 10.4 fL AO Workflow SS Platelets (Bld) [#/Vol] 151 103/mcL Invalid Interpretation Code 130 - 400 10^3/mcL AO Workflow SS RBC (Bld) [#/Vol] 3.24 106/mcL Invalid Interpretation Code 4.20 - 5.40 10^6/mcL AO Workflow SS WBC (Bld) [#/Vol] 5.7 103/mcL Invalid Interpretation Code 4.6 - 10.8 10^3/mcL AO Workflow SS LABORATORYOrdered By: SYSTEM SYSTEM on 08-06-2022 Calcium [Mass/Vol] 8.6 mg/dL Invalid Interpretation Code 8.4 - 10.2 mg/dL AO ADM SS Chloride [Moles/Vol] 102 mmol/L Invalid Interpretation Code 98 - 107 mmol/L AO ADM SS CO2 [Moles/Vol] 33 mmol/L Invalid Interpretation Code 22 - 29 mmol/L AO ADM SS Creatinine [Mass/Vol] 5.76 mg/dL Invalid Interpretation Code 0.55 - 1.02 mg/dL AO ADM SS Electrolyte Balance 8.0 mEq/L Invalid Interpretation Code 4.0 - 15.0 mEq/L AO ADM SS GFR/1.73 sq M.predicted among blacks MDRD (S/P/Bld) [Vol rate/Area] 9 ml/min/1.73sqm Invalid Interpretation Code AO Chemistry S GFR/1.73 sq M.predicted among non-blacks MDRD (S/P/Bld) [Vol rate/Area] 8 ml/min/1.73sqm Invalid Interpretation Code AO Chemistry S Glucose [Mass/Vol] 190 mg/dL Invalid Interpretation Code 70 - 105 mg/dL AO ADM SS Natriuretic peptide.B prohormone N-Terminal [Mass/Vol] 2677 pg/mL Invalid Interpretation Code 0 - 125 pg/mL AO ADM SS Potassium [Moles/Vol] 4.6 mmol/L Invalid Interpretation Code 3.5 - 5.1 mmol/L AO ADM SS Sodium [Moles/Vol] 143 mmol/L Invalid Interpretation Code 136 - 145 mmol/L AO ADM SS Urea nitrogen [Mass/Vol] 43 mg/dL Invalid Interpretation Code 7 - 18 mg/dL AO ADM SS Urea nitrogen/Creatinine [Mass ratio] 7 ratio Invalid Interpretation Code 7 - 27 ratio AO ADM SS LABORATORYOrdered By: Nolberto Wong on 08-06-2022 INR Coag (PPP) [Relative time] 1.0 {INR} Invalid Interpretation Code AO [facility] SS PT Coag (PPP) [Time] 11.2 s Invalid Interpretation Code 9.1 - 14.2 seconds AO [facility] SS Absolute lymphocyte countOrd ered By: Dr. Wyman on 07-23-2022 Lymphocytes Auto (Unsp spec) [#/Vol] 1.01 10*3/uL 0.83-4.51 [facility] Basophil percentageOrdered B y: Dr. Wyman on 07-23-2022 Basophils/100 WBC (Bld) 0.7 % 0-1 [facility] Chloride [Moles/Vol] 104 mmol/L 98-107 [facility] Eosinophils/100 WBC (Bld) 6.5 % 0-5 [facility] Glucose [Mass/Vol] 143 mg/dL 74-106 [facility] Comment on above: Fasting Glucose resu lt greater than or equal to 126 mg/dL suggests DIABETES MELLITUS per A.D.A. criteria. Neutrophils (Bld) [#/Vol] 4.1 10*3/uL 2.0-7.7 [facility] Neutrophils/100 WBC (Bld) 66.7 % 47-70 [facility] Potassium [Moles/Vol] 3.9 mmol/L 3.5-5.1 [facility] Sodium [Moles/Vol] 137 mmol/L 136-145 [facility] WBC (Bld) [#/Vol] 6.1 10*3/uL 4.4-11.0 [facility] Blood erythrocytes count (nu mber/volume)Ordered By: Dr. Wyman on 07-23-2022 RBC (Bld) [#/Vol] 2.80 10*6/uL 4.2-5.4 [facility] Blood hemoglobin measurement (mass/volume)Ordered By: Dr. Wyman on 07-23-2022 Hemoglobin (Bld) [Mass/Vol] 9.2 g/dL 12.0-15.0 [facility] Blood lymphocytes/100 leukoc ytesOrdered By: Dr. Wyman on 07-23-2022 Lymphocytes/100 WBC (Bld) 16.5 % 19-41 [facility] Blood monocytes/100 leukocyt esOrdered By: Dr. Wyman on 07-23-2022 Monocytes/100 WBC (Bld) 8.8 % 0-10 [facility] Blood platelet mean volumeOr dered By: Dr. Wyman on 07-23-2022 Platelet mean volume (Bld) [Entitic vol] 12.7 fL 6.2-12.0 [facility] Determination of erythrocyte mean corpuscular volume (MCV)Ordered By: Dr. Wyman on 07-23-2022 MCV (RBC) [Entitic vol] 102.9 fL 81-99 [facility] Glucose Glucometer (BldC) [M ass/Vol]Ordered By: Dr. Wyman on 07-23-2022 Glucose [Mass/Vol] 118 mg/dL 74-106 [facility] Comment on above: MANAGEMENT OF PATIEN T CARE PER NURSING PROTOCOL Hematocrit Auto (Bld) [Volum e fraction]Ordered By: Dr. Wyman on 07-23-2022 Hematocrit (Bld) [Volume fraction] 28.8 % 37-47 [facility] - Chemistry and C hemistry - challengeOrdered By: Dr. Wyman on 07-23-2022 CO2 [Moles/Vol] 28.0 mmol/L 21.0-32.0 [facility] Urea nitrogen/Creatinine [Mass ratio] 6.8 mg/mg 10-20 [facility] - Hematology and Cell countsOrdered By: Dr. Wyman on 07-23-2022 Erythrocyte distribution width (RBC) [Entitic vol] 57.8 fL 35.1-43.9 [facility] Erythrocyte distribution width (RBC) [Ratio] 15.6 % 11.6-14.6 [facility] Immature granulocytes/100 WBC (Bld) 0.800 % 0.0-0.9 [facility] Comment on above: IG% - Immature Granu locytes (promyelocytes, myelocytes and metamyelocytes) > 1% indicates that a LEFT SHIFT is Present. MCH (RBC) [Entitic mass] 32.9 pg 27.0-32.0 [facility] Nucleated RBC/100 WBC (Bld) [Ratio] 0 % 0-5 [facility] MCHC Auto (RBC) [Mass/Vol]Or dered By: Dr. Wyman on 07-23-2022 MCHC (RBC) [Mass/Vol] 31.9 g/dL 32-36 [facility] No Panel InformationOrdered By: Dr. Wyman on 07-23-2022 Estimated Creatinine Clearance Calc 9.39 ml/min [facility] Estimated GFR (MDRD) Amer 11 mL/min >60 [facility] Comment on above: GFR Calc Estimated GFR (MDRD) Non-Af Amer 9 mL/min >60 [facility] Comment on above: Non- GFR Calc Platelets bldOrdered By: Dr. Wyman on 07-23-2022 Platelets (Bld) [#/Vol] 179 10*3/uL 150-450 [facility] Serum or plasma calcium brody urement (mass/volume)Ordered By: Dr. Wyman on 07-23-2022 Calcium [Mass/Vol] 8.4 mg/dL 8.5-10.1 [facility] Serum or plasma creatinine m easurement (mass/volume)Ordered By: Dr. Wyman on 07-23-2022 Creatinine [Mass/Vol] 5.29 mg/dL 0.55-1.02 [facility] Comment on above: The validity of the calculated GFR & GFRAA in patients over 70 years has not been determined. Clinical correlation is essential. Serum or plasma urea nitroge n measurement (mass/volume)Ordered By: Dr. Wyman on 07-23-2022 Urea nitrogen [Mass/Vol] 36 mg/dL 7-18 [facility] Thin prep Papanicolaou smear with manual screeningOrdered By: Dr. Wyman on 07-23-2022 Thin prep Papanicolaou smear with manual screening 5 5-15 [facility] Base excessOrdered By: Dr. Elisa grande on 07-22-2022 Base excess Calc (BldV) [Moles/Vol] 9 mmol/L -2-2 [facility] Basophil percentageOrdered B y: Dr. Montenegro on 07-22-2022 Basophil percentage 0-5 SEEN /hpf 0-5 [facility] Basophil percentage 31.9 mmol/L 22- [facility] Basophils/100 WBC (Bld) 97 % 95-99 [facility] Ammonia (P) [Moles/Vol] 43.0 umol/L 11-32 [facility] Bilirubin [Mass/Vol] 0.50 mg/dL 0.20-1.00 [facility] Comment on above: For patients on eltr ombopag therapy, use of Dimension [place] TBIL is not recommended. Protein [Mass/Vol] 6.9 g/dL 6.4-8.2 [facility] Bilirubin Test strip Ql (U)O rdered By: Dr. Montenegro on 07-22-2022 Bilirubin Ql (U) 3 mg/dL Negative [facility] Comment on above: COLOR OF URINE MAY A FFECT DIPSTICK RESULTS. CO2 (BldA) [Partial pressure ]Ordered By: Dr. Montenegro on 07-22-2022 CO2 (Bld) [Partial pressure] 40.0 mm[Hg] 35-45 [facility] Direct bilirubinOrdered By: Dr. Montenegro on 07-22-2022 Bilirubin.direct [Mass/Vol] 0.16 mg/dL 0.00-0.30 [facility] Hyaline casts LM.LPF (Urine sed) [#/Area]Ordered By: Dr. Montenegro on 07-22-2022 Hyaline casts (Urine sed) [#/Area] 10 /[LPF] 0-5 [facility] Ketones Test strip Ql (U)Ord ered By: Dr. Montenegro on 07-22-2022 Ketones Ql (U) 5 mg/dl Negative [facility] Laboratory - Chemistry and C hemistry - challengeOrdered By: Dr. Montenegro on 07-22-2022 ALP [Catalytic activity/Vol] 75 U/L 45-117 [facility] ALT [Catalytic activity/Vol] 92 U/L 13-56 [facility] Globulin (S) [Mass/Vol] 3.5 g/dL 2.2-4.2 [facility] Mucus LM Ql (Urine sed)Order ed By: Dr. Montenegro on 07-22-2022 Mucus Ql (Urine sed) 0 SEEN /hpf [facility] Nitrite Test strip Ql (U)Ord ered By: Dr. Montenegro on 07-22-2022 Nitrite Ql (U) Negative Negative [facility] No Panel InformationOrdered By: Dr. Montenegro on 07-22-2022 Blood Gas Sample Site R Radial [facility] Blood Gas Specimen Type ART [facility] Blood Gas Total CO2 33 mmol/L [facility] Oxygen Delivery Device Room Air [facility] Troponin I High Sensitivity 12 pg/mL 3.0-54.0 [facility] Comment on above: Please Note: New Salma t Units and Gender Specific Reference Ranges. For more information see Policy Stat Procedure [place] High Sensitivity Troponin (TNIH) and attachments. Oxygen (BldA) [Partial press ure]Ordered By: Dr. Montenegro on 07-22-2022 Oxygen (Bld) [Partial pressure] 80 mmHG 75-100 [facility] Protein Test strip Ql (U)Ord ered By: Dr. Montenegro on 07-22-2022 Protein Ql (U) 100 mg/dl Negative [facility] Serum or plasma albumin brody urement (mass/volume)Ordered By: Dr. Montenegro on 07-22-2022 Albumin [Mass/Vol] 3.4 g/dL 3.2-5.0 [facility] Squamous epithelial cells de tection in urine sediment by light microscopyOrdered By: Dr. Montenegro on 07-22-2022 Epithelial cells.squamous LM Ql (Urine sed) 0 SEEN /hpf 5-10 [facility] Thin prep Papanicolaou smear with manual screeningOrdered By: Dr. Montenegro on 07-22-2022 Thin prep Papanicolaou smear with manual screening 53 U/L 15-37 [facility] Urine blood detectionOrdered By: Dr. Montenegro on 07-22-2022 RBC Ql (U) 10 /ul Negative [facility] RBC Ql (U) 0 SEEN /hpf 0-5 [facility] Urine clarityOrdered By: Dr. Montenegro on 07-22-2022 Clarity (U) Sl. Cloudy Clear [facility] Urine color determinationOrd ered By: Dr. Montenegro on 07-22-2022 Color (U) Yellow Yellow [facility] Urine glucose detectionOrder ed By: Dr. Montenegro on 07-22-2022 Glucose Ql (U) Normal mg/dl Normal [facility] Urine leukocyte esterase det ection by dipstickOrdered By: Dr. Montenegro on 07-22-2022 Leukocyte esterase Test strip Ql (U) 100 /ul Negative [facility] Urine pHOrdered By: Dr. Jonathon lai on 07-22-2022 pH (U) 7.0 [pH] 5.0 - 8.0 [facility] Urine sediment bacteria coun t by microscopy (number/high power field)Ordered By: Dr. Montenegro on 07-22-2022 Bacteria LM.HPF (Urine sed) [#/Area] 0 /[HPF] None Seen [facility] Urine specific gravity measu rementOrdered By: Dr. Montenegro on 07-22-2022 Specific gravity (U) [Rel density] 1.010 1.002-1.030 [facility] Urobilinogen Auto test strip Ql (U)Ordered By: Dr. Montenegro on 07-22-2022 Urobilinogen Ql (U) 1 mg/dl Normal [facility] pH measurementOrdered By: Dr Bonita Montenegro on 07-22-2022 pH (Unsp spec) 7.51 [pH] 7.35-7.45 [facility] Absolute lymphocyte countOrd ered By: Amarilys Henao on 07-15-2022 Lymphocytes Auto (Unsp spec) [#/Vol] 0.64 10*3/uL 0.83-4.51 [facility] Basophil percentageOrdered B y: Amarilys Henao on 07-15-2022 Basophil percentage 5.4 mg/dL 2.5-4.9 [facility] Basophils/100 WBC (Bld) 0.4 % 0-1 [facility] Chloride [Moles/Vol] 105 mmol/L 98-107 [facility] Eosinophils/100 WBC (Bld) 8.6 % 0-5 [facility] Glucose [Mass/Vol] 102 mg/dL 74-106 [facility] Comment on above: Fasting Glucose resu lt from 100 to 125 mg/dL suggests IMPAIRED HOMEOSTASIS per A.D.A. criteria. Neutrophils (Bld) [#/Vol] 3.3 10*3/uL 2.0-7.7 [facility] Neutrophils/100 WBC (Bld) 69.1 % 47-70 [facility] Potassium [Moles/Vol] 4.2 mmol/L 3.5-5.1 [facility] Sodium [Moles/Vol] 136 mmol/L 136-145 [facility] WBC (Bld) [#/Vol] 4.8 10*3/uL 4.4-11.0 [facility] Blood erythrocytes count (nu mber/volume)Ordered By: Amarilys Henao on 07-15-2022 RBC (Bld) [#/Vol] 2.64 10*6/uL 4.2-5.4 [facility] Blood hemoglobin measurement (mass/volume)Ordered By: Amarilys Henao on 07-15-2022 Hemoglobin (Bld) [Mass/Vol] 8.6 g/dL 12.0-15.0 [facility] Blood lymphocytes/100 leukoc ytesOrdered By: Amarilys Henao on 07-15-2022 Lymphocytes/100 WBC (Bld) 13.4 % 19-41 [facility] Blood monocytes/100 leukocyt esOrdered By: Amarilys Henao on 07-15-2022 Monocytes/100 WBC (Bld) 8.1 % 0-10 [facility] Blood platelet mean volumeOr dered By: Amarilys Henao on 07-15-2022 Platelet mean volume (Bld) [Entitic vol] 13.6 fL 6.2-12.0 [facility] Determination of erythrocyte mean corpuscular volume (MCV)Ordered By: Amarilys Henao on 07-15-2022 MCV (RBC) [Entitic vol] 101.1 fL 81-99 [facility] Glucose Glucometer (dC) [M ass/Vol]Ordered By: Dr. Dunn on 07-15-2022 Glucose [Mass/Vol] 221 mg/dL 74-106 [facility] Comment on above: MANAGEMENT OF PATIEN T CARE PER NURSING PROTOCOL Hematocrit Auto (Bld) [Volum e fraction]Ordered By: Amarilys Henao on 07-15-2022 Hematocrit (Bld) [Volume fraction] 26.7 % 37-47 [facility] - Chemistry and C hemistry - challengeOrdered By: Amarilys Henao on 07-15-2022 CO2 [Moles/Vol] 26.0 mmol/L 21.0-32.0 [facility] Urea nitrogen/Creatinine [Mass ratio] 10.0 mg/mg 10-20 [facility] - Hematology and Cell countsOrdered By: Amarilys Henao on 07-15-2022 Erythrocyte distribution width (RBC) [Entitic vol] 54.9 fL 35.1-43.9 [facility] Erythrocyte distribution width (RBC) [Ratio] 15.1 % 11.6-14.6 [facility] Immature granulocytes/100 WBC (Bld) 0.400 % 0.0-0.9 [facility] Comment on above: IG% - Immature Granu locytes (promyelocytes, myelocytes and metamyelocytes) > 1% indicates that a LEFT SHIFT is Present. MCH (RBC) [Entitic mass] 32.6 pg 27.0-32.0 [facility] Nucleated RBC/100 WBC (Bld) [Ratio] 0 % 0-5 [facility] MCHC Auto (RBC) [Mass/Vol]Or dered By: Amarilys Henao on 07-15-2022 MCHC (RBC) [Mass/Vol] 32.2 g/dL 32-36 [facility] Microbial respiratory cultur eOrdered By: Dr. Wyman on 07-15-2022 Bacteria identified Respiratory culture Nom (Unsp spec) or Staphylococcus aureus isolated. [facility] No Panel InformationOrdered By: Amarilys Henao on 07-15-2022 Estimated Creatinine Clearance Calc 6.61 ml/min [facility] Estimated GFR (MDRD) Amer 8 mL/min >60 [facility] Comment on above: GFR Calc Estimated GFR (MDRD) Non-Af Amer 6 mL/min >60 [facility] Comment on above: Non- GFR Calc Platelets bldOrdered By: Armen Henao on 07-15-2022 Platelets (Bld) [#/Vol] 97 10*3/uL 150-450 [facility] Serum or plasma albumin brody urement (mass/volume)Ordered By: Amarilys Henao on 07-15-2022 Albumin [Mass/Vol] 2.7 g/dL 3.2-5.0 [facility] Serum or plasma calcium brody urement (mass/volume)Ordered By: Amarilys Henao on 07-15-2022 Calcium [Mass/Vol] 7.7 mg/dL 8.5-10.1 [facility] Serum or plasma creatinine m easurement (mass/volume)Ordered By: Amarilys Henao on 07-15-2022 Creatinine [Mass/Vol] 7.17 mg/dL 0.55-1.02 [facility] Comment on above: The validity of the calculated GFR & GFRAA in patients over 70 years has not been determined. Clinical correlation is essential. Serum or plasma urea nitroge n measurement (mass/volume)Ordered By: Amarilys Henao on 07-15-2022 Urea nitrogen [Mass/Vol] 72 mg/dL 7-18 [facility] Basophil percentageOrdered B y: Dr. Wyman on 07-13-2022 Basophil percentage 0-5 SEEN /hpf 0-5 [facility] Bilirubin Test strip Ql (U)O rdered By: Dr. Wyman on 07-13-2022 Bilirubin Ql (U) 1 mg/dL Negative [facility] Comment on above: COLOR OF URINE MAY A FFECT DIPSTICK RESULTS. Gram stain for investigation of transfusion reactionOrdered By: Dr. Wyman on 07-13-2022 Microscopic observation Gram stain Nom (Unsp spec) [facility] Ketones Test strip Ql (U)Ord ered By: Dr. Wyman on 07-13-2022 Ketones Ql (U) Negative Negative [facility] Mucus LM Ql (Urine sed)Order ed By: Dr. Wyman on 07-13-2022 Mucus Ql (Urine sed) 0 SEEN /hpf [facility] Nitrite Test strip Ql (U)Ord ered By: Dr. Wyman on 07-13-2022 Nitrite Ql (U) Negative Negative [facility] No Panel InformationOrdered By: Dr. Wyman on 07-13-2022 Streptococcus pneumoniae Antigen (M [facility] Protein Test strip Ql (U)Ord ered By: Dr. Wyman on 07-13-2022 Protein Ql (U) 100 mg/dl Negative [facility] Squamous epithelial cells de tection in urine sediment by light microscopyOrdered By: Dr. Wyman on 07-13-2022 Epithelial cells.squamous LM Ql (Urine sed) 0-5 SEEN /hpf 5-10 [facility] Urine Legionella pneumophila antigen detectionOrdered By: Dr. Wyman on 07-13-2022 L. pneumophila Ag Ql (U) [facility] Urine blood detectionOrdered By: Dr. Wyman on 07-13-2022 RBC Ql (U) Negative Negative [facility] RBC Ql (U) 0 SEEN /hpf 0-5 [facility] Urine clarityOrdered By: Dr. Wyman on 07-13-2022 Clarity (U) Sl. Cloudy Clear [facility] Urine color determinationOrd ered By: Dr. Wyman on 07-13-2022 Color (U) Yellow Yellow [facility] Urine glucose detectionOrder ed By: Dr. Wyman on 07-13-2022 Glucose Ql (U) Normal mg/dl Normal [facility] Urine leukocyte esterase det ection by dipstickOrdered By: Dr. Wyman on 07-13-2022 Leukocyte esterase Test strip Ql (U) 25 /ul Negative [facility] Urine pHOrdered By: Dr. Claudia gardiner on 07-13-2022 pH (U) 7.0 [pH] 5.0 - 8.0 [facility] Urine sediment bacteria coun t by microscopy (number/high power field)Ordered By: Dr. Wyman on 07-13-2022 Bacteria LM.HPF (Urine sed) [#/Area] 1 /[HPF] None Seen [facility] Urine specific gravity measu rementOrdered By: Dr. Wyman on 07-13-2022 Specific gravity (U) [Rel density] 1.010 1.002-1.030 [facility] Urobilinogen Auto test strip Ql (U)Ordered By: Dr. Wyman on 07-13-2022 Urobilinogen Ql (U) Normal mg/dl Normal [facility] Absolute lymphocyte countOrd ered By: Kamlesh Muhammad on 07-12-2022 Lymphocytes Auto (Unsp spec) [#/Vol] 0.54 10*3/uL 0.83-4.51 [facility] Basophil percentageOrdered B y: Kamlesh Muhammad on 07-12-2022 Basophils/100 WBC (Bld) 0.3 % 0-1 [facility] Chloride [Moles/Vol] 102 mmol/L 98-107 [facility] Eosinophils/100 WBC (Bld) 3.1 % 0-5 [facility] Glucose [Mass/Vol] 186 mg/dL 74-106 [facility] Comment on above: Fasting Glucose resu lt greater than or equal to 126 mg/dL suggests DIABETES MELLITUS per A.D.A. criteria. Neutrophils (Bld) [#/Vol] 5.5 10*3/uL 2.0-7.7 [facility] Neutrophils/100 WBC (Bld) 76.5 % 47-70 [facility] Potassium [Moles/Vol] 4.1 mmol/L 3.5-5.1 [facility] Sodium [Moles/Vol] 139 mmol/L 136-145 [facility] WBC (Bld) [#/Vol] 7.2 10*3/uL 4.4-11.0 [facility] Blood erythrocytes count (nu mber/volume)Ordered By: Kamlesh Muhammad on 07-12-2022 RBC (Bld) [#/Vol] 2.80 10*6/uL 4.2-5.4 [facility] Blood hemoglobin measurement (mass/volume)Ordered By: Kamlesh Muhammad on 07-12-2022 Hemoglobin (Bld) [Mass/Vol] 9.2 g/dL 12.0-15.0 [facility] Blood lymphocytes/100 leukoc ytesOrdered By: Kamlesh Muhammad on 07-12-2022 Lymphocytes/100 WBC (Bld) 7.6 % 19-41 [facility] Blood monocytes/100 leukocyt esOrdered By: Kamlesh Muhammad on 07-12-2022 Monocytes/100 WBC (Bld) 12.2 % 0-10 [facility] Blood platelet mean volumeOr dered By: Kamlesh Muhammad on 07-12-2022 Platelet mean volume (Bld) [Entitic vol] 12.2 fL 6.2-12.0 [facility] Determination of erythrocyte mean corpuscular volume (MCV)Ordered By: Kamlesh Muhammad on 07-12-2022 MCV (RBC) [Entitic vol] 101.4 fL 81-99 [facility] HCO3 (BldA) [Moles/Vol]Order ed By: Dr. Talley on 07-12-2022 HCO3 (Bld) [Moles/Vol] 33 mmol/L 22-26 [facility] Hematocrit Auto (Bld) [Volum e fraction]Ordered By: Kamlesh Muhammad on 07-12-2022 Hematocrit (Bld) [Volume fraction] 28.4 % 37-47 [facility] INR in Blood by Coagulation assayOrdered By: Kamlesh Muhammad on 07-12-2022 INR Coag (Bld) [Relative time] 1.2 {INR} [facility] Influenza virus A and B and SARS-CoV-2 (COVID-19) Ag panel - Upper respiratory specimOrdered By: Kamlesh Muhammad on 07-12-2022 SARS-CoV-2 (COVID-19) RNA YANI+probe Ql (Resp) [facility] - Chemistry and C hemistry - challengeOrdered By: Dr. Talley on 07-12-2022 CO2 [Moles/Vol] 34 mmol/L 23-33 [facility] - Chemistry and C hemistry - challengeOrdered By: Kamlesh Muhammad on 07-12-2022 CO2 [Moles/Vol] 36.0 mmol/L 21.0-32.0 [facility] Urea nitrogen/Creatinine [Mass ratio] 6.3 mg/mg 10-20 [facility] - CoagulationOrde red By: Kamlesh Muhammad on 07-12-2022 PT Coag (PPP) [Time] 15.2 s 11.7-14.9 [facility] Laboratory - Hematology and Cell countsOrdered By: Kamlesh Muhammad on 07-12-2022 Erythrocyte distribution width (RBC) [Entitic vol] 55.9 fL 35.1-43.9 [facility] Erythrocyte distribution width (RBC) [Ratio] 15.4 % 11.6-14.6 [facility] Immature granulocytes/100 WBC (Bld) 0.300 % 0.0-0.9 [facility] Comment on above: IG% - Immature Granu locytes (promyelocytes, myelocytes and metamyelocytes) > 1% indicates that a LEFT SHIFT is Present. MCH (RBC) [Entitic mass] 32.9 pg 27.0-32.0 [facility] Nucleated RBC/100 WBC (Bld) [Ratio] 0 % 0-5 [facility] MCHC Auto (RBC) [Mass/Vol]Or dered By: Kamlesh Muhammad on 07-12-2022 MCHC (RBC) [Mass/Vol] 32.4 g/dL 32-36 [facility] No Panel InformationOrdered By: Dr. Talley on 07-12-2022 Bed Mix Venous Bld PCO2 at Pat Temp 43.0 mmHg 41-51 [facility] Blood Gas Specimen Type SARAH [facility] Oxygen Delivery Device Room Air [facility] Venous Blood Base Excess 9 mmol/L -1.0-3.5 [facility] No Panel InformationOrdered By: Kamlesh Muhammad on 07-12-2022 Estimated Creatinine Clearance Calc 12.92 ml/min [facility] Estimated GFR (MDRD) Amer 16 mL/min >60 [facility] Comment on above: GFR Calc Estimated GFR (MDRD) Non-Af Amer 14 mL/min >60 [facility] Comment on above: Non- GFR Calc PO2 venousOrdered By: Dr. Ray comer on 07-12-2022 Oxygen (BldV) [Partial pressure] 42 mm[Hg] 25-40 [facility] Platelets bldOrdered By: Tiffanie Muhammad on 07-12-2022 Platelets (Bld) [#/Vol] 105 10*3/uL 150-450 [facility] Serum or plasma calcium brody urement (mass/volume)Ordered By: Kamlesh Muhammad on 07-12-2022 Calcium [Mass/Vol] 8.5 mg/dL 8.5-10.1 [facility] Serum or plasma creatinine m easurement (mass/volume)Ordered By: Kamlesh Muhammad on 07-12-2022 Creatinine [Mass/Vol] 3.67 mg/dL 0.55-1.02 [facility] Comment on above: The validity of the calculated GFR & GFRAA in patients over 70 years has not been determined. Clinical correlation is essential. Serum or plasma urea nitroge n measurement (mass/volume)Ordered By: Kamlesh Muhammad on 07-12-2022 Urea nitrogen [Mass/Vol] 23 mg/dL 7-18 [facility] Thin prep Papanicolaou smear with manual screeningOrdered By: Kamlesh Muhammad on 07-12-2022 Thin prep Papanicolaou smear with manual screening 1 -15 [facility] Vital signsOrdered By: Dr. Navdeep paulino on 07-12-2022 Oxygen saturation in Blood 81 % 50-70 [facility] pH measurementOrdered By: Dr Bonita Talley on 07-12-2022 pH (Unsp spec) 7.49 [pH] 7.32-7.42 [facility] LABORATORYOrdered By: Tobi Andersen on 04-15-2022 FLUAV RNA YANI+probe Ql (Upper resp) Negative (04/15/22 4:28 PM) Invalid Interpretation Code Negative AO Auto Urine SS FLUBV RNA YANI+probe Ql (Upper resp) Positive *ABN* (04/15/22 4:28 PM) Invalid Interpretation Code Negative AO Auto Urine SS RSV RNA YANI+probe Ql (Upper resp) Negative (04/15/22 4:28 PM) Invalid Interpretation Code Negative AO Auto Urine SS SARS-CoV-2 (COVID-19) RNA YANI+probe Ql (Resp) Negative results do not preclude SARS-CoV-2 infection and should not be used as the sole basis for patient management decisions. Negative results must be combined with clinical observations, patient history, and epidemiological information.There is a risk of false negative values resulting from improperly collected, transported, or handled specimens.There is a risk of false negative values due to the presence of sequence variants in the pathogen targets of the assay, procedural errors, amplification inhibitors in specimens, or inadequate numbers of organisms for amplification.PAT SARS-CoV-2 Assay is a Real-Time reverse-transcriptase polymerase chain reaction (RT-PCR) based qualitative in vitro diagnostic test intended for the qualitative detection of nucleic acid from the SARS-CoV-2 in nasopharyngeal swab specimens collected from individuals suspected of COVID-19 by their healthcare provider. Testing is limited to laboratories certified under the Clinical Laboratory Improvement Amendments of 1988 (CLIA), 42 U.S.C. 263a, to perform moderate and high complexity tests. Invalid Interpretation Code AO Auto Urine SS LABORATORYOrdered By: Kyle green on 02-25-2022 Glucose [Mass/Vol] 95 mg/dL Invalid Interpretation Code 70 - 110 mg/dL [facility] Work Phone: LABORATORYOrdered By: SYSTEM SYSTEM on 02-25-2022 Basophils (Bld) [#/Vol] 0.0 103/mcL Invalid Interpretation Code 0.0 - 0.3 10^3/mcL AH Workflow SS Basophils/100 WBC (Bld) 0.5 % Invalid Interpretation Code 0.0 - 2.5 % AH Workflow SS Calcium [Mass/Vol] 8.9 mg/dL Invalid Interpretation Code 8.7 - 10.4 mg/dL AH ADM SS Chloride [Moles/Vol] 97 mmol/L Invalid Interpretation Code 98 - 110 mEq/L AH ADM SS CO2 [Moles/Vol] 34 mmol/L Invalid Interpretation Code 22 - 32 mEq/L AH ADM SS Creatinine [Mass/Vol] 3.06 mg/dL Invalid Interpretation Code 0.50 - 1.20 mg/dL ADM SS Electrolyte Balance 6.0 mEq/L Invalid Interpretation Code 4.0 - 15.0 mEq/L ADM SS Eosinophils (Bld) [#/Vol] 0.3 103/mcL Invalid Interpretation Code 0.0 - 0.7 10^3/mcL AH Workflow SS Eosinophils/100 WBC (Bld) 3.0 % Invalid Interpretation Code 0.0 - 6.0 % Workflow SS Erythrocyte distribution width (RBC) [Ratio] 14.1 % Invalid Interpretation Code 11.5 - 15.5 % AH Workflow SS GFR/1.73 sq M.predicted among blacks MDRD (S/P/Bld) [Vol rate/Area] 19 ml/min/1.73sqm Invalid Interpretation Code Chemistry S GFR/1.73 sq M.predicted among non-blacks MDRD (S/P/Bld) [Vol rate/Area] 16 ml/min/1.73sqm Invalid Interpretation Code Chemistry S Glucose [Mass/Vol] 120 mg/dL Invalid Interpretation Code 70 - 110 mg/dL ADM SS Hematocrit (Bld) [Volume fraction] 36.5 % Invalid Interpretation Code 34.0 - 46.0 % Workflow SS Hemoglobin (Bld) [Mass/Vol] 12.3 G/dL Invalid Interpretation Code 12.0 - 16.0 G/dL AH Workflow SS Lymphocytes (Bld) [#/Vol] 0.4 103/mcL Invalid Interpretation Code 0.9 - 4.3 10^3/mcL Workflow SS Lymphocytes/100 WBC (Bld) 5.0 % Invalid Interpretation Code 20.0 - 40.0 % AH Workflow SS MCH (RBC) [Entitic mass] 32.0 pg Invalid Interpretation Code 27.0 - 33.0 pg AH Workflow SS MCHC 33.8 G/dL Invalid Interpretation Code 32.0 - 36.0 G/dL Workflow SS MCV (RBC) [Entitic vol] 94.8 fL Invalid Interpretation Code 80.0 - 99.0 fL Workflow SS Monocytes (Bld) [#/Vol] 0.7 103/mcL Invalid Interpretation Code 0.1 - 1.4 10^3/mcL AH Workflow SS Monocytes/100 WBC (Bld) 8.5 % Invalid Interpretation Code 2.0 - 13.0 % AH Workflow SS Neutrophils (Bld) [#/Vol] 7.1 103/mcL Invalid Interpretation Code 2.3 - 8.1 10^3/mcL AH Workflow SS Neutrophils/100 WBC (Bld) 83.0 % Invalid Interpretation Code 50.0 - 75.0 % AH Workflow SS Platelet mean volume (Bld) [Entitic vol] 10.6 fL Invalid Interpretation Code 6.6 - 10.5 fL AH Workflow SS Platelets (Bld) [#/Vol] 193 103/mcL Invalid Interpretation Code 150 - 450 10^3/mcL AH Workflow SS Potassium [Moles/Vol] 4.0 mmol/L Invalid Interpretation Code 3.5 - 5.0 mEq/L AH ADM SS RBC (Bld) [#/Vol] 3.85 106/mcL Invalid Interpretation Code 4.10 - 5.30 10^6/mcL AH Workflow SS Sodium [Moles/Vol] 137 mmol/L Invalid Interpretation Code 136 - 145 mEq/L AH ADM SS Urea nitrogen [Mass/Vol] 28.0 mg/dL Invalid Interpretation Code 8.0 - 22.0 mg/dL AH ADM SS Urea nitrogen/Creatinine [Mass ratio] 9.2 ratio Invalid Interpretation Code 10.0 - 22.0 ratio AH ADM SS WBC (Bld) [#/Vol] 8.6 103/mcL Invalid Interpretation Code 4.5 - 10.8 10^3/mcL AH Workflow SS LABORATORYOrdered By: Torri Kendrick on 02-25-2022 INR Coag (PPP) [Relative time] 1.3 {INR} Invalid Interpretation Code AH Auto Coag SS PT Coag (PPP) [Time] 15.7 s Invalid Interpretation Code 9.0 - 14.9 seconds AH Auto Coag SS LABORATORYOrdered By: Regine Tompkins on 01-22-2022 Albumin BCP dye [Mass/Vol] 3.8 G/dL Invalid Interpretation Code 3.5 - 5.0 G/dL AO ADM SS Albumin/Globulin [Mass ratio] 1.3 {ratio} Invalid Interpretation Code 1.1 - 2.5 ratio AO ADM SS ALP [Catalytic activity/Vol] 67 U/L Invalid Interpretation Code 40 - 135 U/L AO ADM SS ALT With P-5'-P [Catalytic activity/Vol] 26 U/L Invalid Interpretation Code 14 - 59 U/L AO ADM SS AST With P-5'-P [Catalytic activity/Vol] 25 U/L Invalid Interpretation Code 10 - 40 U/L AO ADM SS Bilirubin [Mass/Vol] 0.5 mg/dL Invalid Interpretation Code 0.2 - 1.0 mg/dL AO ADM SS Calcium [Mass/Vol] 8.8 mg/dL Invalid Interpretation Code 8.4 - 10.2 mg/dL AO ADM SS Chloride [Moles/Vol] 102 mmol/L Invalid Interpretation Code 98 - 107 mmol/L AO ADM SS Cholesterol [Mass/Vol] 211 mg/dL Invalid Interpretation Code 0 - 200 mg/dL AO ADM SS Cholesterol in HDL [Mass/Vol] 44 mg/dL Invalid Interpretation Code 40 - 60 mg/dL AO ADM SS Cholesterol in LDL [Mass/Vol] 133 mg/dL Invalid Interpretation Code 0 - 130 mg/dL AO ADM SS CO2 [Moles/Vol] 32 mmol/L Invalid Interpretation Code 22 - 29 mmol/L AO ADM SS Creatinine [Mass/Vol] 4.84 mg/dL Invalid Interpretation Code 0.55 - 1.02 mg/dL AO ADM SS Electrolyte Balance 8.0 mEq/L Invalid Interpretation Code 4.0 - 15.0 mEq/L AO ADM SS Globulin 3.0 G/dL Invalid Interpretation Code AO ADM SS Glucose [Mass/Vol] 99 mg/dL Invalid Interpretation Code 70 - 105 mg/dL AO ADM SS HbA1c (Bld) [Mass fraction] 5.6 % Invalid Interpretation Code 4.3 - 6.4 % AO ADM SS Potassium [Moles/Vol] 4.9 mmol/L Invalid Interpretation Code 3.5 - 5.1 mmol/L AO ADM SS Protein [Mass/Vol] 6.8 G/dL Invalid Interpretation Code 6.4 - 8.2 G/dL AO ADM SS Sodium [Moles/Vol] 142 mmol/L Invalid Interpretation Code 136 - 145 mmol/L AO ADM SS Triglyceride [Mass/Vol] 171 mg/dL Invalid Interpretation Code 0 - 150 mg/dL AO ADM SS Urea nitrogen [Mass/Vol] 47 mg/dL Invalid Interpretation Code 7 - 18 mg/dL AO ADM SS Urea nitrogen/Creatinine [Mass ratio] 10 ratio Invalid Interpretation Code 7 - 27 ratio AO ADM SS Vit. D 25-Hydroxy 35.6 ng/mL Invalid Interpretation Code AO ADM SS LABORATORYOrdered By: SYSTEM SYSTEM on 01-22-2022 GFR 11 ml/min/1.73sqm Invalid Interpretation Code AO Chemistry S GFR Non- 9 ml/min/1.73sqm Invalid Interpretation Code AO Chemistry S LABORATORYOrdered By: Jerrell Landry on 12-15-2021 Glucose [Mass/Vol] 350 mg/dL Invalid Interpretation Code 70 - 110 mg/dL [facility] Work Phone: LABORATORYOrdered By: Delores Rose on 12-15-2021 Glucose [Mass/Vol] 332 mg/dL Invalid Interpretation Code 70 - 110 mg/dL [facility] Work Phone: LABORATORYOrdered By: Davie tai on 12-15-2021 Glucose [Mass/Vol] 306 mg/dL Invalid Interpretation Code 70 - 110 mg/dL [facility] Work Phone: LABORATORYOrdered By: SYSTEM SYSTEM on 12-15-2021 Albumin BCP dye [Mass/Vol] 3.0 G/dL Invalid Interpretation Code 3.2 - 4.8 G/dL ADM SS Albumin/Globulin [Mass ratio] 1.1 {ratio} Invalid Interpretation Code 0.9 - 1.6 ratio ADM SS ALP [Catalytic activity/Vol] 49 U/L Invalid Interpretation Code 38 - 126 U/L ADM SS ALT No additional P-5'-P [Catalytic activity/Vol] 24 U/L Invalid Interpretation Code 10 - 49 U/L ADM SS AST [Catalytic activity/Vol] 31 U/L Invalid Interpretation Code 8 - 34 U/L ADM SS Basophils (Bld) [#/Vol] 0.0 103/mcL Invalid Interpretation Code 0.0 - 0.3 10^3/mcL Workflow SS Basophils/100 WBC (Bld) 0.1 % Invalid Interpretation Code 0.0 - 2.5 % Workflow SS Bilirubin [Mass/Vol] 0.30 mg/dL Invalid Interpretation Code 0.20 - 1.20 mg/dL ADM SS Calcium [Mass/Vol] 8.0 mg/dL Invalid Interpretation Code 8.7 - 10.4 mg/dL ADM SS Calcium [Mass/Vol] 8.1 mg/dL Invalid Interpretation Code 8.7 - 10.4 mg/dL ADM SS Chloride [Moles/Vol] 99 mmol/L Invalid Interpretation Code 98 - 110 mEq/L ADM SS Chloride [Moles/Vol] 105 mmol/L Invalid Interpretation Code 98 - 110 mEq/L ADM SS CO2 [Moles/Vol] 27 mmol/L Invalid Interpretation Code 22 - 32 mEq/L ADM SS CO2 [Moles/Vol] 25 mmol/L Invalid Interpretation Code 22 - 32 mEq/L ADM SS Creatinine [Mass/Vol] 3.75 mg/dL Invalid Interpretation Code 0.50 - 1.20 mg/dL ADM SS Creatinine [Mass/Vol] 3.72 mg/dL Invalid Interpretation Code 0.50 - 1.20 mg/dL ADM SS CRP [Mass/Vol] 6.7 mg/dL Invalid Interpretation Code 0.0 - 1.0 mg/dL ADM SS Electrolyte Balance 9.0 mEq/L Invalid Interpretation Code 4.0 - 15.0 mEq/L ADM SS Electrolyte Balance 5.0 mEq/L Invalid Interpretation Code 4.0 - 15.0 mEq/L ADM SS Eosinophils (Bld) [#/Vol] 0.0 103/mcL Invalid Interpretation Code 0.0 - 0.7 10^3/mcL Workflow SS Eosinophils/100 WBC (Bld) 0.1 % Invalid Interpretation Code 0.0 - 6.0 % Workflow SS Erythrocyte distribution width (RBC) [Ratio] 13.7 % Invalid Interpretation Code 11.5 - 15.5 % Workflow SS GFR/1.73 sq M.predicted among blacks MDRD (S/P/Bld) [Vol rate/Area] 15 ml/min/1.73sqm Invalid Interpretation Code Chemistry S GFR/1.73 sq M.predicted among non-blacks MDRD (S/P/Bld) [Vol rate/Area] 13 ml/min/1.73sqm Invalid Interpretation Code Chemistry S Globulin 2.8 G/dL Invalid Interpretation Code 1.5 - 3.8 G/dL ADM SS Glucose [Mass/Vol] 136 mg/dL Invalid Interpretation Code 70 - 110 mg/dL ADM SS Glucose [Mass/Vol] 141 mg/dL Invalid Interpretation Code 70 - 110 mg/dL ADM SS Hematocrit (Bld) [Volume fraction] 27.8 % Invalid Interpretation Code 34.0 - 46.0 % Workflow SS Hemoglobin (Bld) [Mass/Vol] 9.5 G/dL Invalid Interpretation Code 12.0 - 16.0 G/dL AH Workflow SS Lymphocytes (Bld) [#/Vol] 0.7 103/mcL Invalid Interpretation Code 0.9 - 4.3 10^3/mcL AH Workflow SS Lymphocytes/100 WBC (Bld) 6.1 % Invalid Interpretation Code 20.0 - 40.0 % AH Workflow SS MCH (RBC) [Entitic mass] 31.9 pg Invalid Interpretation Code 27.0 - 33.0 pg AH Workflow SS MCHC 34.3 G/dL Invalid Interpretation Code 32.0 - 36.0 G/dL AH Workflow SS MCV (RBC) [Entitic vol] 92.9 fL Invalid Interpretation Code 80.0 - 99.0 fL AH Workflow SS Monocytes (Bld) [#/Vol] 0.7 103/mcL Invalid Interpretation Code 0.1 - 1.4 10^3/mcL AH Workflow SS Monocytes/100 WBC (Bld) 6.0 % Invalid Interpretation Code 2.0 - 13.0 % AH Workflow SS Neutrophils (Bld) [#/Vol] 10.3 103/mcL Invalid Interpretation Code 2.3 - 8.1 10^3/mcL AH Workflow SS Neutrophils/100 WBC (Bld) 87.7 % Invalid Interpretation Code 50.0 - 75.0 % AH Workflow SS Platelet mean volume (Bld) [Entitic vol] 10.4 fL Invalid Interpretation Code 6.6 - 10.5 fL AH Workflow SS Platelets (Bld) [#/Vol] 139 103/mcL Invalid Interpretation Code 150 - 450 10^3/mcL AH Workflow SS Potassium [Moles/Vol] 3.6 mmol/L Invalid Interpretation Code 3.5 - 5.0 mEq/L AH ADM SS Potassium [Moles/Vol] 3.5 mmol/L Invalid Interpretation Code 3.5 - 5.0 mEq/L AH ADM SS Protein [Mass/Vol] 5.8 G/dL Invalid Interpretation Code 5.7 - 8.2 G/dL AH ADM SS RBC (Bld) [#/Vol] 3.00 106/mcL Invalid Interpretation Code 4.10 - 5.30 10^6/mcL AH Workflow SS Troponin I.cardiac DL <= 0.01 ng/mL [Mass/Vol] 10.93 ng/L Invalid Interpretation Code 0.00 - 34.00 ng/L AH ADM SS Urea nitrogen [Mass/Vol] 61.0 mg/dL Invalid Interpretation Code 8.0 - 22.0 mg/dL ADM SS Urea nitrogen [Mass/Vol] 57.0 mg/dL Invalid Interpretation Code 8.0 - 22.0 mg/dL ADM SS Urea nitrogen/Creatinine [Mass ratio] 16.3 ratio Invalid Interpretation Code 10.0 - 22.0 ratio ADM SS Urea nitrogen/Creatinine [Mass ratio] 15.3 ratio Invalid Interpretation Code 10.0 - 22.0 ratio ADM SS WBC (Bld) [#/Vol] 11.7 103/mcL Invalid Interpretation Code 4.5 - 10.8 10^3/mcL Workflow SS LABORATORYOrdered By: Chanel on 12-15-2021 Fibrin D-dimer DDU (PPP) [Mass/Vol] 261 ng/mL D-DU Invalid Interpretation Code 0 - 230 ng/mL D-DU Auto Coag SS Comment on above: Result Comment: Resu lts reported in D-DU ng/ml. Positive for D-dimer. A positive D-dimer may occur in the following: DVT, PE, DIC, Trauma, Cancer, Sepsis, , Rheumatoid arthritis, Myocardial infarction and Cirrhosis. Note: Not affected by Rheumatoid Factor <=1400 IU/mL Laboratory - Chemistry and C hemistry - challengeOrdered By: SYSTEM SYSTEM on 12-15-2021 Sodium [Moles/Vol] 135 mmol/L Invalid Interpretation Code 136 - 145 mEq/L [facility] LAB[facility]Ordered By: Brian craft on 12-14-2021 Blood Glucose Testing Reason Routine (12/14/21 5:29 PM) [facility] Work Phone: Time of Stated Blood Glucose [phone] [facility] Work Phone: LABORATORYOrdered By: Raisa Gilliland on 12-14-2021 Blood Glucose Testing Reason Routine (12/14/21 12:28 PM) [facility] Work Phone: Time of Stated Blood Glucose [phone] [facility] Work Phone: LABORATORYOrdered By: SYSTEM SYSTEM on 12-14-2021 Albumin BCP dye [Mass/Vol] 3.0 G/dL Invalid Interpretation Code 3.2 - 4.8 G/dL AH ADM SS Albumin/Globulin [Mass ratio] 1.0 {ratio} Invalid Interpretation Code 0.9 - 1.6 ratio ADM SS ALP [Catalytic activity/Vol] 47 U/L Invalid Interpretation Code 38 - 126 U/L ADM SS ALT No additional P-5'-P [Catalytic activity/Vol] 18 U/L Invalid Interpretation Code 10 - 49 U/L ADM SS AST [Catalytic activity/Vol] 24 U/L Invalid Interpretation Code 8 - 34 U/L ADM SS Basophils (Bld) [#/Vol] 0.0 103/mcL Invalid Interpretation Code 0.0 - 0.3 10^3/mcL Workflow SS Basophils/100 WBC (Bld) 0.0 % Invalid Interpretation Code 0.0 - 2.5 % Workflow SS Bilirubin [Mass/Vol] 0.30 mg/dL Invalid Interpretation Code 0.20 - 1.20 mg/dL ADM SS Calcium [Mass/Vol] 7.9 mg/dL Invalid Interpretation Code 8.7 - 10.4 mg/dL ADM SS Chloride [Moles/Vol] 97 mmol/L Invalid Interpretation Code 98 - 110 mEq/L ADM SS CO2 [Moles/Vol] 23 mmol/L Invalid Interpretation Code 22 - 32 mEq/L ADM SS Creatinine [Mass/Vol] 5.20 mg/dL Invalid Interpretation Code 0.50 - 1.20 mg/dL ADM SS CRP [Mass/Vol] 13.3 mg/dL Invalid Interpretation Code 0.0 - 1.0 mg/dL ADM SS Electrolyte Balance 13.0 mEq/L Invalid Interpretation Code 4.0 - 15.0 mEq/L ADM SS Eosinophils (Bld) [#/Vol] 0.0 103/mcL Invalid Interpretation Code 0.0 - 0.7 10^3/mcL Workflow SS Eosinophils/100 WBC (Bld) 0.0 % Invalid Interpretation Code 0.0 - 6.0 % Workflow SS Erythrocyte distribution width (RBC) [Ratio] 13.8 % Invalid Interpretation Code 11.5 - 15.5 % Workflow SS GFR/1.73 sq M.predicted among blacks MDRD (S/P/Bld) [Vol rate/Area] 10 ml/min/1.73sqm Invalid Interpretation Code Chemistry S GFR/1.73 sq M.predicted among non-blacks MDRD (S/P/Bld) [Vol rate/Area] 9 ml/min/1.73sqm Invalid Interpretation Code AH Chemistry S Globulin 2.9 G/dL Invalid Interpretation Code 1.5 - 3.8 G/dL ADM SS Glucose [Mass/Vol] 290 mg/dL Invalid Interpretation Code 70 - 110 mg/dL ADM SS HBV surface Ag IA Ql Non-Reactive (12/14/21 7:18 AM) Invalid Interpretation Code Non-Reactive AH ADM SS Hematocrit (Bld) [Volume fraction] 28.0 % Invalid Interpretation Code 34.0 - 46.0 % AH Workflow SS Hemoglobin (Bld) [Mass/Vol] 9.7 G/dL Invalid Interpretation Code 12.0 - 16.0 G/dL AH Workflow SS Lymphocytes (Bld) [#/Vol] 0.3 103/mcL Invalid Interpretation Code 0.9 - 4.3 10^3/mcL Workflow SS Lymphocytes/100 WBC (Bld) 3.2 % Invalid Interpretation Code 20.0 - 40.0 % AH Workflow SS MCH (RBC) [Entitic mass] 32.2 pg Invalid Interpretation Code 27.0 - 33.0 pg AH Workflow SS MCHC 34.7 G/dL Invalid Interpretation Code 32.0 - 36.0 G/dL AH Workflow SS MCV (RBC) [Entitic vol] 92.9 fL Invalid Interpretation Code 80.0 - 99.0 fL AH Workflow SS Monocytes (Bld) [#/Vol] 0.4 103/mcL Invalid Interpretation Code 0.1 - 1.4 10^3/mcL AH Workflow SS Monocytes/100 WBC (Bld) 3.3 % Invalid Interpretation Code 2.0 - 13.0 % AH Workflow SS Neutrophils (Bld) [#/Vol] 10.2 103/mcL Invalid Interpretation Code 2.3 - 8.1 10^3/mcL AH Workflow SS Neutrophils/100 WBC (Bld) 93.5 % Invalid Interpretation Code 50.0 - 75.0 % AH Workflow SS Platelet mean volume (Bld) [Entitic vol] 10.5 fL Invalid Interpretation Code 6.6 - 10.5 fL AH Workflow SS Platelets (Bld) [#/Vol] 138 103/mcL Invalid Interpretation Code 150 - 450 10^3/mcL AH Workflow SS Potassium [Moles/Vol] 4.0 mmol/L Invalid Interpretation Code 3.5 - 5.0 mEq/L ADM SS Protein [Mass/Vol] 5.9 G/dL Invalid Interpretation Code 5.7 - 8.2 G/dL ADM SS RBC (Bld) [#/Vol] 3.01 106/mcL Invalid Interpretation Code 4.10 - 5.30 10^6/mcL Workflow SS Sodium [Moles/Vol] 133 mmol/L Invalid Interpretation Code 136 - 145 mEq/L ADM SS Troponin I.cardiac DL <= 0.01 ng/mL [Mass/Vol] 12.12 ng/L Invalid Interpretation Code 0.00 - 34.00 ng/L AH ADM SS Urea nitrogen [Mass/Vol] 95.0 mg/dL Invalid Interpretation Code 8.0 - 22.0 mg/dL AH ADM SS Urea nitrogen/Creatinine [Mass ratio] 18.3 ratio Invalid Interpretation Code 10.0 - 22.0 ratio AH ADM SS WBC (Bld) [#/Vol] 10.9 103/mcL Invalid Interpretation Code 4.5 - 10.8 10^3/mcL Workflow SS LABORATORYOrdered By: Abhijit Byrd on 12-14-2021 Fibrin D-dimer DDU (PPP) [Mass/Vol] 208 ng/mL D-DU Invalid Interpretation Code 0 - 230 ng/mL D-DU Auto Coag SS Comment on above: Result Comment: Resu lts reported in D-DU ng/ml. Negative for D-dimer. DVT/PE is highly unlikely. Note: False negative results may be seen in patients on anticoagulant therapy. LABORATORYOrdered By: Nichole Corbett on 12-13-2021 Blood Glucose Testing Reason Routine (12/13/21 9:52 PM) [facility] Work Phone: LABORATORYOrdered By: SYSTEM SYSTEM on 12-13-2021 Albumin BCP dye [Mass/Vol] 3.3 G/dL Invalid Interpretation Code 3.2 - 4.8 G/dL ADM SS Albumin/Globulin [Mass ratio] 1.1 {ratio} Invalid Interpretation Code 0.9 - 1.6 ratio ADM SS ALP [Catalytic activity/Vol] 55 U/L Invalid Interpretation Code 38 - 126 U/L ADM SS ALT No additional P-5'-P [Catalytic activity/Vol] 21 U/L Invalid Interpretation Code 10 - 49 U/L ADM SS AST [Catalytic activity/Vol] 29 U/L Invalid Interpretation Code 8 - 34 U/L ADM SS Basophils (Bld) [#/Vol] 0.0 103/mcL Invalid Interpretation Code 0.0 - 0.3 10^3/mcL AH Workflow SS Basophils/100 WBC (Bld) 0.1 % Invalid Interpretation Code 0.0 - 2.5 % AH Workflow SS Bilirubin [Mass/Vol] 0.40 mg/dL Invalid Interpretation Code 0.20 - 1.20 mg/dL AH ADM SS CK [Catalytic activity/Vol] 80 U/L Invalid Interpretation Code 7 - 185 U/L ADM SS CRP [Mass/Vol] 16.2 mg/dL Invalid Interpretation Code 0.0 - 1.0 mg/dL ADM SS Eosinophils (Bld) [#/Vol] 0.0 103/mcL Invalid Interpretation Code 0.0 - 0.7 10^3/mcL AH Workflow SS Eosinophils/100 WBC (Bld) 0.0 % Invalid Interpretation Code 0.0 - 6.0 % Workflow SS Erythrocyte distribution width (RBC) [Ratio] 13.9 % Invalid Interpretation Code 11.5 - 15.5 % Workflow SS Ferritin [Mass/Vol] 920.0 ng/mL Invalid Interpretation Code 8.0 - 252.0 ng/mL ADM SS GFR/1.73 sq M.predicted among blacks MDRD (S/P/Bld) [Vol rate/Area] 10 ml/min/1.73sqm Invalid Interpretation Code Chemistry S GFR/1.73 sq M.predicted among non-blacks MDRD (S/P/Bld) [Vol rate/Area] 9 ml/min/1.73sqm Invalid Interpretation Code Chemistry S Globulin 3.1 G/dL Invalid Interpretation Code 1.5 - 3.8 G/dL ADM SS Hematocrit (Bld) [Volume fraction] 31.3 % Invalid Interpretation Code 34.0 - 46.0 % Workflow SS Hemoglobin (Bld) [Mass/Vol] 10.6 G/dL Invalid Interpretation Code 12.0 - 16.0 G/dL Workflow SS LDH Lactate to pyruvate reaction [Catalytic activity/Vol] 243 1 Invalid Interpretation Code 120 - 246 U/L ADM SS Lymphocytes (Bld) [#/Vol] 0.4 103/mcL Invalid Interpretation Code 0.9 - 4.3 10^3/mcL AH Workflow SS Lymphocytes/100 WBC (Bld) 3.9 % Invalid Interpretation Code 20.0 - 40.0 % AH Workflow SS Magnesium [Mass/Vol] 1.8 mg/dL Invalid Interpretation Code 1.6 - 2.4 mg/dL AH ADM SS MCH (RBC) [Entitic mass] 31.9 pg Invalid Interpretation Code 27.0 - 33.0 pg AH Workflow SS MCHC 33.8 G/dL Invalid Interpretation Code 32.0 - 36.0 G/dL AH Workflow SS MCV (RBC) [Entitic vol] 94.4 fL Invalid Interpretation Code 80.0 - 99.0 fL AH Workflow SS Monocytes (Bld) [#/Vol] 0.4 103/mcL Invalid Interpretation Code 0.1 - 1.4 10^3/mcL AH Workflow SS Monocytes/100 WBC (Bld) 4.2 % Invalid Interpretation Code 2.0 - 13.0 % AH Workflow SS Neutrophils (Bld) [#/Vol] 9.8 103/mcL Invalid Interpretation Code 2.3 - 8.1 10^3/mcL AH Workflow SS Neutrophils/100 WBC (Bld) 91.8 % Invalid Interpretation Code 50.0 - 75.0 % AH Workflow SS Platelet mean volume (Bld) [Entitic vol] 11.3 fL Invalid Interpretation Code 6.6 - 10.5 fL AH Workflow SS Platelets (Bld) [#/Vol] 130 103/mcL Invalid Interpretation Code 150 - 450 10^3/mcL AH Workflow SS Protein [Mass/Vol] 6.4 G/dL Invalid Interpretation Code 5.7 - 8.2 G/dL AH ADM SS RBC (Bld) [#/Vol] 3.31 106/mcL Invalid Interpretation Code 4.10 - 5.30 10^6/mcL AH Workflow SS Troponin I.cardiac DL <= 0.01 ng/mL [Mass/Vol] 13.76 ng/L Invalid Interpretation Code 0.00 - 34.00 ng/L AH ADM SS WBC (Bld) [#/Vol] 10.6 103/mcL Invalid Interpretation Code 4.5 - 10.8 10^3/mcL AH Workflow SS GFR 10 ml/min/1.73sqm Invalid Interpretation Code AO Chemistry S GFR Non- 8 ml/min/1.73sqm Invalid Interpretation Code AO Chemistry S LABORATORYOrdered By: Len Sales on 12-13-2021 aPTT Coag (PPP) [Time] 32.0 s Invalid Interpretation Code 25.0 - 35.0 seconds Auto Coag SS Fibrin D-dimer DDU (PPP) [Mass/Vol] 203 ng/mL D-DU Invalid Interpretation Code 0 - 230 ng/mL D-DU Auto Coag SS Comment on above: Result Comment: Resu lts reported in D-DU ng/ml. Negative for D-dimer. DVT/PE is highly unlikely. Note: False negative results may be seen in patients on anticoagulant therapy. Heparin dose (APTT) Unknown (12/13/21 5:57 PM) Invalid Interpretation Code Auto Coag SS LABORATORYOrdered By: Deloris Martinez on 12-13-2021 Appearance (U) Slightly Cloudy *ABN* (12/13/21 11:14 AM) Invalid Interpretation Code Clear AO Auto Urine SS Bacteria LM.HPF (Urine sed) [#/Area] 2 /[HPF] Invalid Interpretation Code AO Auto Urine SS Bilirubin Ql (U) Negative (12/13/21 11:14 AM) Invalid Interpretation Code Negative AO Auto Urine SS Color (U) Yellow (12/13/21 11:14 AM) Invalid Interpretation Code AO Auto Urine SS Crystals.amorphous LM.HPF (Urine sed) [#/Area] 1 /[HPF] Invalid Interpretation Code AO Auto Urine SS Glucose Test strip (U) [Mass/Vol] Negative Invalid Interpretation Code Negativemg/d L AO Auto Urine SS Hemoglobin Auto test strip (U) [Mass/Vol] Negative (12/13/21 11:14 AM) Invalid Interpretation Code Negative AO Auto Urine SS Ketones Ql (U) Trace mg/dL Invalid Interpretation Code Negativemg/d L AO Auto Urine SS UA Leuk Est Negative (12/13/21 11:14 AM) Invalid Interpretation Code Negative AO Auto Urine SS UA Nitrite Negative (12/13/21 11:14 AM) Invalid Interpretation Code Negative AO Auto Urine SS UA pH 5.5 (12/13/21 11:14 AM) Invalid Interpretation Code 5.0 - 8.0 AO Auto Urine SS UA Protein 100 mg/dL Invalid Interpretation Code Negativemg/d L AO Auto Urine SS UA RBC 0-5 /HPF Invalid Interpretation Code None Seen/HPF AO Auto Urine SS UA Spec Grav 1.025 (12/13/21 11:14 AM) Invalid Interpretation Code 1.015-1.025 AO Auto Urine SS UA Specimen Type Clean Catch (12/13/21 11:14 AM) Invalid Interpretation Code AO Auto Urine SS UA Squam Epithelial 5-10 /HPF Invalid Interpretation Code None Seen/HPF AO Auto Urine SS UA Urobilinogen 0.2 E.U./dL Invalid Interpretation Code 0.2-1.0E.U./ dL AO Auto Urine SS WBC LM.HPF (Urine sed) [#/Area] None Seen /HPF Invalid Interpretation Code None Seen/HPF AO Auto Urine SS LABORATORYOrdered By: Raheel Mantilla on 12-13-2021 ADMITTED TO INTENSIVE CARE UNIT FOR CONDITION OF INTEREST:FIND:PT:^ANGELA ENT:ORD: No (12/13/21 4:41 AM) Invalid Interpretation Code AO Auto Urine SS EMPLOYED IN A HEALTHCARE SETTING:FIND:PT:^PATIE NT:ORD: No (12/13/21 4:41 AM) Invalid Interpretation Code AO Auto Urine SS FIRST TEST FOR CONDITION OF INTEREST:FIND:PT:^ANGELA ENT:ORD: Unknown (12/13/21 4:41 AM) Invalid Interpretation Code AO Auto Urine SS HAS SYMPTOMS RELATED TO CONDITION OF INTEREST:FIND:PT:^ANGELA ENT:ORD: Yes (12/13/21 4:41 AM) Invalid Interpretation Code AO Auto Urine SS Illness or injury onset date and time [id number] Invalid Interpretation Code AO Auto Urine SS Patient was hospitalized because of this condition No (12/13/21 4:41 AM) Invalid Interpretation Code AO Auto Urine SS status Not (12/13/21 4:41 AM) Invalid Interpretation Code AO Auto Urine SS RESIDES IN A CONGREGATE CARE SETTING:FIND:PT:^PATIE NT:ORD: No (12/13/21 4:41 AM) Invalid Interpretation Code AO Auto Urine SS SARS-CoV-2 (COVID-19) RNA YANI+probe Ql (Resp) Positive results are indicative of the presence of SARS-CoV-2 RNA; clinical correlation with patient history and other diagnostic information is necessary to determine patient infection status. Positive results do not rule out bacterial infection or co-infection with other viruses. The agent detected may not be the definite cause of disease. Laboratories within the [place] and its territories are required to report all positive results to the appropriate public health authorities.Detection of analyte target(s) does not imply that the corresponding virus(es) are infectious or are the causative agents for clinical symptoms.There is a risk of false positive values resulting from cross-contamination by target organisms, their nucleic acids or amplified product, or from non-specific signals in the assay.PAT SARS-CoV-2 Assay is a Real-Time reverse-transcriptase polymerase chain reaction (RT-PCR) based qualitative in vitro diagnostic test intended for the qualitative detection of nucleic acid from the SARS-CoV-2 in nasopharyngeal swab specimens collected from individuals suspected of COVID-19 by their healthcare provider. Testing is limited to laboratories certified under the Clinical Laboratory Improvement Amendments of 1988 (CLIA), 42 U.S.C. 263a, to perform moderate and high complexity tests. Invalid Interpretation Code AO Auto Urine SS LABORATORYOrdered By: Alyse Song on 12-13-2021 Albumin BCP dye [Mass/Vol] 3.5 G/dL Invalid Interpretation Code 3.5 - 5.0 G/dL AO ADM SS Albumin/Globulin [Mass ratio] 1.1 {ratio} Invalid Interpretation Code 1.1 - 2.5 ratio AO ADM SS ALP [Catalytic activity/Vol] 57 U/L Invalid Interpretation Code 40 - 135 U/L AO ADM SS ALT With P-5'-P [Catalytic activity/Vol] 23 U/L Invalid Interpretation Code 14 - 59 U/L AO ADM SS AST With P-5'-P [Catalytic activity/Vol] 23 U/L Invalid Interpretation Code 10 - 40 U/L AO ADM SS Basophil, Absolute 0.0 103/mcL Invalid Interpretation Code 0.0 - 0.2 10^3/mcL AO Workflow SS Basophils/100 WBC (Bld) 0.3 % Invalid Interpretation Code 0.0 - 2.5 % AO Workflow SS Bilirubin [Mass/Vol] 0.9 mg/dL Invalid Interpretation Code 0.2 - 1.0 mg/dL AO ADM SS Calcium [Mass/Vol] 7.9 mg/dL Invalid Interpretation Code 8.4 - 10.2 mg/dL AO ADM SS Chloride [Moles/Vol] 99 mmol/L Invalid Interpretation Code 98 - 107 mmol/L AO ADM SS CO2 [Moles/Vol] 28 mmol/L Invalid Interpretation Code 22 - 29 mmol/L AO ADM SS Creatinine [Mass/Vol] 5.60 mg/dL Invalid Interpretation Code 0.55 - 1.02 mg/dL AO ADM SS Electrolyte Balance 12.0 mEq/L Invalid Interpretation Code 4.0 - 15.0 mEq/L AO ADM SS Eosinophil, Absolute 0.0 103/mcL Invalid Interpretation Code 0.0 - 0.4 10^3/mcL AO Workflow SS Eosinophils/100 WBC (Bld) 0.3 % Invalid Interpretation Code 0.0 - 7.0 % AO Workflow SS Erythrocyte distribution width (RBC) [Ratio] 14.2 % Invalid Interpretation Code 11.5 - 14.5 % AO Workflow SS Globulin 3.1 G/dL Invalid Interpretation Code AO ADM SS Glucose [Mass/Vol] 174 mg/dL Invalid Interpretation Code 70 - 105 mg/dL AO ADM SS Hematocrit (Bld) [Volume fraction] 33.4 % Invalid Interpretation Code 37.0 - 47.0 % AO Workflow SS Hemoglobin (Bld) [Mass/Vol] 11.1 G/dL Invalid Interpretation Code 12.0 - 16.0 G/dL AO Workflow SS Lipase [Catalytic activity/Vol] 118 U/L Invalid Interpretation Code 73 - 393 U/L AO ADM SS Lymphocyte, Absolute 0.5 103/mcL Invalid Interpretation Code 0.8 - 3.9 10^3/mcL AO Workflow SS Lymphocytes/100 WBC (Bld) 3.2 % Invalid Interpretation Code 10.0 - 50.0 % AO Workflow SS MCH (RBC) [Entitic mass] 31.1 pg Invalid Interpretation Code 27.0 - 31.2 pg AO Workflow SS MCHC 33.2 G/dL Invalid Interpretation Code 33.0 - 37.0 G/dL AO Workflow SS MCV (RBC) [Entitic vol] 93.5 fL Invalid Interpretation Code 80.0 - 94.0 fL AO Workflow SS Monocyte distribution width Auto (Bld) [Entitic vol] 26.12 Invalid Interpretation Code 0.00 - 20.00 AO Workflow SS Comment on above: Result Comment: For adults in ED, MDW>20.0 may be associated with a higher risk of sepsis during the first 12hrs of hospital admission Monocyte, Absolute 1.3 103/mcL Invalid Interpretation Code 0.2 - 1.0 10^3/mcL AO Workflow SS Monocytes/100 WBC (Bld) 8.9 % Invalid Interpretation Code 1.7 - 13.0 % AO Workflow SS Neutrophil, Absolute 12.5 103/mcL Invalid Interpretation Code 2.9 - 6.2 10^3/mcL AO Workflow SS Neutrophils/100 WBC (Bld) 87.3 % Invalid Interpretation Code 37.0 - 80.0 % AO Workflow SS Platelet mean volume (Bld) [Entitic vol] 10.8 fL Invalid Interpretation Code 7.4 - 10.4 fL AO Workflow SS Platelets (Bld) [#/Vol] 135 103/mcL Invalid Interpretation Code 130 - 400 10^3/mcL AO Workflow SS Potassium [Moles/Vol] 4.1 mmol/L Invalid Interpretation Code 3.5 - 5.1 mmol/L AO ADM SS Protein [Mass/Vol] 6.6 G/dL Invalid Interpretation Code 6.4 - 8.2 G/dL AO ADM SS RBC (Bld) [#/Vol] 3.57 106/mcL Invalid Interpretation Code 4.20 - 5.40 10^6/mcL AO Workflow SS Sodium [Moles/Vol] 139 mmol/L Invalid Interpretation Code 136 - 145 mmol/L AO ADM SS Troponin I.cardiac DL <= 0.01 ng/mL [Mass/Vol] 14.4 ng/L Invalid Interpretation Code 0.0 - 51.4 ng/L AO ADM SS Urea nitrogen [Mass/Vol] 75 mg/dL Invalid Interpretation Code 7 - 18 mg/dL AO ADM SS Urea nitrogen/Creatinine [Mass ratio] 13 ratio Invalid Interpretation Code 7 - 27 ratio AO ADM SS WBC (Bld) [#/Vol] 14.3 103/mcL Invalid Interpretation Code 4.6 - 10.8 10^3/mcL AO Workflow SS LABORATORYOrdered By: Renee Petersen on 12-11-2021 Adenovirus DNA YANI+non-probe Ql (Nph) Not Detected *NA* (12/11/21 4:15 PM) Invalid Interpretation Code Not Detected AH Auto Viro/Sero SS ADMITTED TO INTENSIVE CARE UNIT FOR CONDITION OF INTEREST:FIND:PT:^ANGELA ENT:ORD: No (12/11/21 4:15 PM) Invalid Interpretation Code AH Auto Viro/Sero SS B. parapertussis [id number] DNA YANI+non-probe Ql (Nph) Not Detected *NA* (12/11/21 4:15 PM) Invalid Interpretation Code Not Detected AH Auto Viro/Sero SS B. pertussis toxin promoter region YANI+non-probe Ql (Nph) Not Detected *NA* (12/11/21 4:15 PM) Invalid Interpretation Code Not Detected AH Auto Viro/Sero SS C. pneumoniae DNA YANI+non-probe Ql (Nph) Not Detected *NA* (12/11/21 4:15 PM) Invalid Interpretation Code Not Detected AH Auto Viro/Sero SS EMPLOYED IN A HEALTHCARE SETTING:FIND:PT:^PATIE NT:ORD: No (12/11/21 4:15 PM) Invalid Interpretation Code AH Auto Viro/Sero SS FIRST TEST FOR CONDITION OF INTEREST:FIND:PT:^ANGELA ENT:ORD: No (12/11/21 4:15 PM) Invalid Interpretation Code AH Auto Viro/Sero SS FLUAV RNA YANI+non-probe Ql (Nph) Not Detected *NA* (12/11/21 4:15 PM) Invalid Interpretation Code Not Detected AH Auto Viro/Sero SS FLUBV RNA YANI+non-probe Ql (Nph) Not Detected *NA* (12/11/21 4:15 PM) Invalid Interpretation Code Not Detected AH Auto Viro/Sero SS HAS SYMPTOMS RELATED TO CONDITION OF INTEREST:FIND:PT:^ANGELA ENT:ORD: Yes (12/11/21 4:15 PM) Invalid Interpretation Code AH Auto Viro/Sero SS hMPV RNA YANI+non-probe Ql (Nph) Not Detected *NA* (12/11/21 4:15 PM) Invalid Interpretation Code Not Detected AH Auto Viro/Sero SS Illness or injury onset date and time [id number] Invalid Interpretation Code AH Auto Viro/Sero SS M. pneumoniae DNA YANI+non-probe Ql (Nph) Not Detected *NA* (12/11/21 4:15 PM) Invalid Interpretation Code Not Detected AH Auto Viro/Sero SS Parainfluenza virus 1 RNA YANI+non-probe Ql (Nph) Not Detected *NA* (12/11/21 4:15 PM) Invalid Interpretation Code Not Detected AH Auto Viro/Sero SS Parainfluenza virus 2 RNA YANI+non-probe Ql (Nph) Not Detected *NA* (12/11/21 4:15 PM) Invalid Interpretation Code Not Detected AH Auto Viro/Sero SS Parainfluenza virus 3 RNA YANI+non-probe Ql (Nph) Not Detected *NA* (12/11/21 4:15 PM) Invalid Interpretation Code Not Detected AH Auto Viro/Sero SS Parainfluenza virus 4 RNA YANI+non-probe Ql (Nph) Not Detected *NA* (12/11/21 4:15 PM) Invalid Interpretation Code Not Detected AH Auto Viro/Sero SS Patient was hospitalized because of this condition No (12/11/21 4:15 PM) Invalid Interpretation Code AH Auto Viro/Sero SS status Not (12/11/21 4:15 PM) Invalid Interpretation Code AH Auto Viro/Sero SS RESIDES IN A CONGREGATE CARE SETTING:FIND:PT:^PATIE NT:ORD: No (12/11/21 4:15 PM) Invalid Interpretation Code AH Auto Viro/Sero SS Rhinovirus+Enterovirus RNA YANI+non-probe Ql (Nph) Not Detected *NA* (12/11/21 4:15 PM) Invalid Interpretation Code Not Detected AH Auto Viro/Sero SS RSV RNA YANI+non-probe Ql (Nph) Not Detected *NA* (12/11/21 4:15 PM) Invalid Interpretation Code Not Detected AH Auto Viro/Sero SS SARS-CoV-2 (COVID-19) RNA YANI+probe Ql (Resp) Detected *ABN* (12/11/21 4:15 PM) Invalid Interpretation Code Not Detected AH Auto Viro/Sero SS LABORATORYOrdered By: Jackie Yarbrough on 12-11-2021 Calcium [Mass/Vol] 8.4 mg/dL Invalid Interpretation Code 8.4 - 10.2 mg/dL AO ADM SS Chloride [Moles/Vol] 104 mmol/L Invalid Interpretation Code 98 - 107 mmol/L AO ADM SS CO2 [Moles/Vol] 29 mmol/L Invalid Interpretation Code 22 - 29 mmol/L AO ADM SS Creatinine [Mass/Vol] 4.47 mg/dL Invalid Interpretation Code 0.55 - 1.02 mg/dL AO ADM SS Electrolyte Balance 10.0 mEq/L Invalid Interpretation Code 4.0 - 15.0 mEq/L AO ADM SS Glucose [Mass/Vol] 88 mg/dL Invalid Interpretation Code 70 - 105 mg/dL AO ADM SS Potassium [Moles/Vol] 4.7 mmol/L Invalid Interpretation Code 3.5 - 5.1 mmol/L AO ADM SS Sodium [Moles/Vol] 143 mmol/L Invalid Interpretation Code 136 - 145 mmol/L AO ADM SS Urea nitrogen [Mass/Vol] 56 mg/dL Invalid Interpretation Code 7 - 18 mg/dL AO ADM SS Urea nitrogen/Creatinine [Mass ratio] 13 ratio Invalid Interpretation Code 7 - 27 ratio AO ADM SS LABORATORYOrdered By: SYSTEM SYSTEM on 12-11-2021 GFR 12 ml/min/1.73sqm Invalid Interpretation Code AO Chemistry S GFR Non- 10 ml/min/1.73sqm Invalid Interpretation Code AO Chemistry S LABORATORYOrdered By: Tobi Hdez on 11-04-2021 aPTT Coag (Bld) [Time] 19.1 s Invalid Interpretation Code 24.8 - 33.3 seconds AO Coag SS Heparin dose (APTT) DTI (11/04/21 4:16 PM) Invalid Interpretation Code AO Coag SS INR Coag (PPP) [Relative time] 1.0 {INR} Invalid Interpretation Code 0.9 - 1.2 ratio AO Coag SS PT Coag (PPP) [Time] 11.5 s Invalid Interpretation Code 9.7 - 14.3 seconds AO Coag SS Acetaminophen Lvl mcg/mL Invalid Interpretation Code 10.0 - 30.0 mcg/mL AO Chemistry S Albumin BCP dye [Mass/Vol] 3.5 G/dL Invalid Interpretation Code 3.5 - 5.0 G/dL AO ADM SS Albumin/Globulin [Mass ratio] 1.3 {ratio} Invalid Interpretation Code 1.1 - 2.5 ratio AO ADM SS ALP [Catalytic activity/Vol] 67 U/L Invalid Interpretation Code 40 - 135 U/L AO ADM SS ALT With P-5'-P [Catalytic activity/Vol] 29 U/L Invalid Interpretation Code 14 - 59 U/L AO ADM SS AST With P-5'-P [Catalytic activity/Vol] 21 U/L Invalid Interpretation Code 10 - 40 U/L AO ADM SS Bilirubin [Mass/Vol] 0.4 mg/dL Invalid Interpretation Code 0.2 - 1.0 mg/dL AO ADM SS Calcium [Mass/Vol] 8.4 mg/dL Invalid Interpretation Code 8.4 - 10.2 mg/dL AO ADM SS Chloride [Moles/Vol] 103 mmol/L Invalid Interpretation Code 98 - 107 mmol/L AO ADM SS CO2 [Moles/Vol] 29 mmol/L Invalid Interpretation Code 22 - 29 mmol/L AO ADM SS Creatinine [Mass/Vol] 4.19 mg/dL Invalid Interpretation Code 0.55 - 1.02 mg/dL AO ADM SS Electrolyte Balance 9.0 mEq/L Invalid Interpretation Code 4.0 - 15.0 mEq/L AO ADM SS Ethanol [Mass/Vol] mg/dL Invalid Interpretation Code 0 - 3 mg/dL AO ADM SS Globulin 2.7 G/dL Invalid Interpretation Code AO ADM SS Glucose [Mass/Vol] 194 mg/dL Invalid Interpretation Code 70 - 105 mg/dL AO ADM SS Potassium [Moles/Vol] 4.2 mmol/L Invalid Interpretation Code 3.5 - 5.1 mmol/L AO ADM SS Protein [Mass/Vol] 6.2 G/dL Invalid Interpretation Code 6.4 - 8.2 G/dL AO ADM SS Salicylate Level 1.4 mg/dL Invalid Interpretation Code 2.8 - 20.0 mg/dL AO ADM SS Sodium [Moles/Vol] 141 mmol/L Invalid Interpretation Code 136 - 145 mmol/L AO ADM SS Urea nitrogen [Mass/Vol] 56 mg/dL Invalid Interpretation Code 7 - 18 mg/dL AO ADM SS Urea nitrogen/Creatinine [Mass ratio] 13 ratio Invalid Interpretation Code 7 - 27 ratio AO ADM SS LABORATORYOrdered By: Jackie Yarbrough on 11-04-2021 Amphetamines Screen Ql (U) Negative (11/04/21 3:18 PM) Invalid Interpretation Code AO Manual Urine SS Barbiturates Screen Ql (U) Negative (11/04/21 3:18 PM) Invalid Interpretation Code AO Manual Urine SS Basophil, Absolute 0.0 103/mcL Invalid Interpretation Code 0.0 - 0.2 10^3/mcL AO Workflow SS Basophils/100 WBC (Bld) 0.6 % Invalid Interpretation Code 0.0 - 2.5 % AO Workflow SS Benzodiazepines Ql (U) Negative (11/04/21 3:18 PM) Invalid Interpretation Code AO Manual Urine SS Benzoylecgonine Screen Ql (U) Negative (11/04/21 3:18 PM) Invalid Interpretation Code AO Manual Urine SS Cannabinoids tested Screen Nom (U) Negative (11/04/21 3:18 PM) Invalid Interpretation Code AO Manual Urine SS Eosinophil, Absolute 0.4 103/mcL Invalid Interpretation Code 0.0 - 0.4 10^3/mcL AO Workflow SS Eosinophils/100 WBC (Bld) 5.8 % Invalid Interpretation Code 0.0 - 7.0 % AO Workflow SS Erythrocyte distribution width (RBC) [Ratio] 13.7 % Invalid Interpretation Code 11.5 - 14.5 % AO Workflow SS Hematocrit (Bld) [Volume fraction] 31.6 % Invalid Interpretation Code 37.0 - 47.0 % AO Workflow SS Hemoglobin (Bld) [Mass/Vol] 10.7 G/dL Invalid Interpretation Code 12.0 - 16.0 G/dL AO Workflow SS Lymphocyte, Absolute 0.7 103/mcL Invalid Interpretation Code 0.8 - 3.9 10^3/mcL AO Workflow SS Lymphocytes/100 WBC (Bld) 12.0 % Invalid Interpretation Code 10.0 - 50.0 % AO Workflow SS MCH (RBC) [Entitic mass] 32.0 pg Invalid Interpretation Code 27.0 - 31.2 pg AO Workflow SS MCHC 34.0 G/dL Invalid Interpretation Code 33.0 - 37.0 G/dL AO Workflow SS MCV (RBC) [Entitic vol] 94.3 fL Invalid Interpretation Code 80.0 - 94.0 fL AO Workflow SS Methadone Screen Ql (U) Negative (11/04/21 3:18 PM) Invalid Interpretation Code AO Manual Urine SS Monocyte distribution width Auto (Bld) [Entitic vol] 17.08 Invalid Interpretation Code 0.00 - 20.00 AO Workflow SS Comment on above: Result Comment: For ED adult patients suspected of sepsis, MDW<=20.0 does not rule out sepsis or risk of sepsis Monocyte, Absolute 0.5 103/mcL Invalid Interpretation Code 0.2 - 1.0 10^3/mcL AO Workflow SS Monocytes/100 WBC (Bld) 8.3 % Invalid Interpretation Code 1.7 - 13.0 % AO Workflow SS Neutrophil, Absolute 4.6 103/mcL Invalid Interpretation Code 2.9 - 6.2 10^3/mcL AO Workflow SS Neutrophils/100 WBC (Bld) 73.3 % Invalid Interpretation Code 37.0 - 80.0 % AO Workflow SS Opiates Screen Ql (U) Negative (11/04/21 3:18 PM) Invalid Interpretation Code AO Manual Urine SS Phencyclidine Ql (U) Negative (11/04/21 3:18 PM) Invalid Interpretation Code AO Manual Urine SS Platelet mean volume (Bld) [Entitic vol] 10.1 fL Invalid Interpretation Code 7.4 - 10.4 fL AO Workflow SS Platelets (Bld) [#/Vol] 146 103/mcL Invalid Interpretation Code 130 - 400 10^3/mcL AO Workflow SS RBC (Bld) [#/Vol] 3.35 106/mcL Invalid Interpretation Code 4.20 - 5.40 10^6/mcL AO Workflow SS Tricyclic antidepressants Screen Ql (U) Negative (11/04/21 3:18 PM) Invalid Interpretation Code AO Manual Urine SS WBC 6.2 103/mcL Invalid Interpretation Code 4.6 - 10.8 10^3/mcL AO Workflow SS LABORATORYOrdered By: SYSTEM SYSTEM on 11-04-2021 GFR 13 ml/min/1.73sqm Invalid Interpretation Code AO Chemistry S GFR Non- 11 ml/min/1.73sqm Invalid Interpretation Code AO Chemistry S LABORATORYOrdered By: Tobi Hdez on 10-10-2021 ADMITTED TO INTENSIVE CARE UNIT FOR CONDITION OF INTEREST:FIND:PT:^ANGELA ENT:ORD: No (10/10/21 12:00 PM) Invalid Interpretation Code AO Auto Urine SS EMPLOYED IN A HEALTHCARE SETTING:FIND:PT:^PATIE NT:ORD: No (10/10/21 12:00 PM) Invalid Interpretation Code AO Auto Urine SS FIRST TEST FOR CONDITION OF INTEREST:FIND:PT:^ANGELA ENT:ORD: No (10/10/21 12:00 PM) Invalid Interpretation Code AO Auto Urine SS HAS SYMPTOMS RELATED TO CONDITION OF INTEREST:FIND:PT:^ANGELA ENT:ORD: Yes (10/10/21 12:00 PM) Invalid Interpretation Code AO Auto Urine SS Illness or injury onset date and time [id number] Invalid Interpretation Code AO Auto Urine SS Patient was hospitalized because of this condition No (10/10/21 12:00 PM) Invalid Interpretation Code AO Auto Urine SS status Not (10/10/21 12:00 PM) Invalid Interpretation Code AO Auto Urine SS RESIDES IN A CONGREGATE CARE SETTING:FIND:PT:^PATIE NT:ORD: No (10/10/21 12:00 PM) Invalid Interpretation Code AO Auto Urine SS SARS-CoV-2 (COVID-19) RNA YANI+probe Ql (Unsp spec) Negative results do not preclude SARS-CoV-2 infection and should not be used as the sole basis for patient management decisions. Negative results must be combined with clinical observations, patient history, and epidemiological information.There is a risk of false negative values resulting from improperly collected, transported, or handled specimens.There is a risk of false negative values due to the presence of sequence variants in the pathogen targets of the assay, procedural errors, amplification inhibitors in specimens, or inadequate numbers of organisms for amplification.PAT SARS-CoV-2 Assay is a Real-Time reverse-transcriptase polymerase chain reaction (RT-PCR) based qualitative in vitro diagnostic test intended for the qualitative detection of nucleic acid from the SARS-CoV-2 in nasopharyngeal swab specimens collected from individuals suspected of COVID-19 by their healthcare provider. Testing is limited to laboratories certified under the Clinical Laboratory Improvement Amendments of 1988 (CLIA), 42 U.S.C. 263a, to perform moderate and high complexity tests. Invalid Interpretation Code AO Auto Urine SS AUTOCROSSMATCH, FLOWon 09-25 AUTOCROSSMATCH, FLOW SEE SEPARATE REPORT Normal [facility] Comment on above: Result Comment: Test performed at [facility], [address]th [address] [place] [address] Performed By: #### V ARZG #### [facility] [address] [facility] [place] [address] HLA CLASS I AB SCREEN,FCon 0 09-25-2021 HLA CLASS I AB SCREEN,FC SEE COMMENT Normal [facility] Comment on above: Result Comment: HLA CLASS I AB SCREEN,FLOW CYTOMETRY SEE SEPARATE REPORT. Test performed at [facility], [address]th Floor [id number] [place] [address] Performed By: #### V ARZG #### [facility] [address] [facility]. [place] [id number] HLA CLASS II AB SCREEN,FCon 09-25-2021 HLA CLASS II AB SCREEN,FC SEE COMMENT Normal [facility] Comment on above: Result Comment: HLA CLASS II AB SCREEN,FLOW CYTOMETRY SEE SEPARATE REPORT. Test performed at [facility], 6th Floor [address] [place] [address] Performed By: #### V ARZG #### [facility] [address] [facility] [place] [id number] HLA-A,B,C LRon 09-25-2021 HLA-A LOCUS LR TYPE SEE COMMENT Normal [facility] Comment on above: Result Comment: HLA- A LOCUS, LOW RESOLUTION TYPE SEE SEPARATE REPORT. Performed By: #### D N1LR #### [facility] [address] [place] [id number] HLA-B LOCUS LR TYPE SEE COMMENT Normal [facility] Comment on above: Result Comment: HLA- B LOCUS, LOW RESOLUTION TYPE SEE SEPARATE REPORT. Performed By: #### D N1LR #### [facility] [address] [place] [id number] HLA-C LOCUS LR TYPE SEE COMMENT Normal [facility] Comment on above: Result Comment: HLA- C LOCUS, LOW RESOLUTION TYPE SEE SEPARATE REPORT. Test performed at [facility], [address] [place] [address] Performed By: #### D N1LR #### [facility] [address] [facility]. [place] [id number] HLA-DPB1 HR TYPINGon 022 HLA-DPB1 HR TYPING SEE COMMENT Normal [facility] Comment on above: Result Comment: HLA- DPB1 HIGH RESOLUTION TYPING SEE SEPARATE REPORT. Test performed at [facility], [address] [place] [address] Performed By: #### H BAB3 #### [facility] [address] [facility]. [place] [id number] HLA-DQB1 HR TYPINGon 022 HLA-DQB1 HR TYPING SEE COMMENT Normal [facility] Comment on above: Result Comment: HLA- DQB1 HIGH RESOLUTION TYPING SEE SEPARATE REPORT. Test performed at [facility], 6th Floor [address] [place] [address] Performed By: #### D QBHT #### [facility] [address] [facility] [address] HLA-DRB1/3/4/5 AND DQB1 LR T YPINGon 09-25-2021 HLA-DRB1/3/4/5 & DQB1 LR TYPING SEE COMMENT Normal [facility] Comment on above: Result Comment: HLA- DRB1/3/4/5 AND DQB1 LOW RESOLUTION TYPING SEE SEPARATE REPORT. Test performed at [facility], 6[facility] [address] [place] [address] Performed By: #### Ramón ARZG #### [facility] [address] [facility] [place] [address] DRUG-PROFILE 9,BLOOD WITH RE FLEX TO CONFIRMATIONon 09-03-2021 AMPHETAMINES SCREEN Negative Normal Cutoff 20 [facility] Comment on above: Performed By: #### D S7LC #### [facility] [address] [place] [address] BARBITURATES SCREEN Negative Normal Cutoff 50 [facility] Comment on above: Performed By: #### Seamus S7LC #### [facility] [address] [place] [address] BENZODIAZEPINES SCREEN Negative Normal Cutoff 50 [facility] Comment on above: Performed By: #### Seamus S7LC #### [facility] [address] [place] [address] BUPRENORPHINE SCREEN Negative Normal Cutoff 1 [facility] Comment on above: Performed By: #### Seamus S7LC #### [facility] [address] [place] [address] CANNABINOID SCREEN Negative Normal Cutoff 20 [facility] Comment on above: Performed By: #### Seamus S7LC #### [facility] [address] [place] [address] COCAINE SCREEN Negative Normal Cutoff 20 [facility] Comment on above: Performed By: #### Seamus S7LC #### [facility] [address] [place] [address] DRUG SCREEN COMMENT See Note Normal [facility] Comment on above: Result Comment: INTE RPRETIVE INFORMATION: Drug Screen 9 Panel, Serum or Plasma - Immunoassay Screen with Reflex to Mass Spectrometry Confirmation/Quantitation 1. Methodology: Qualitative Immunoassay Screen 2. Drugs/Drug classes reported as Positive are automatically reflexed to mass spectrometry confirmation/quantitation testing. An immunoassay unconfirmed positive screen result may be useful for medical purposes but does not meet forensic standards. 3. The absence of expected drug(s) and/or drug metabolite(s) may indicate noncompliance, inappropriate timing of specimen collection relative to drug administration, poor drug absorption, or limitations of testing. The concentration at which the screening test can detect a drug or metabolite varies within a drug class. Specimens for which drugs or drug classes are detected by the screen are automatically reflexed to a second, more specific technology (mass spectrometry). The concentration value must be greater than or equal to the cutoff to be reported as positive. Interpretive questions should be directed to the laboratory. 4. For medical purposes only; not valid for forensic use. This test was developed and its performance characteristics determined by [facility]. It has not been cleared or approved by the [place] Food and Drug Administration. This test was performed in a CLIA certified laboratory and is intended for clinical purposes. Performed By: [facility] [address] [place] [address] Gas Dispatcher: Eboni Izquierdo MD Performed By: #### Seamus S7LC #### [facility] [address] [place] [address] METHADONE SCREEN Negative Normal Cutoff 25 [facility] Comment on above: Performed By: #### Seamus S7LC #### [facility] [address] [place] [address] METHAMPHETAMINES SCREEN Negative Normal Cutoff 20 [facility] Comment on above: Performed By: #### Seamus S7LC #### [facility] [address] [place] [address] OPIATE SCREEN Negative Normal Cutoff 20 [facility] Comment on above: Performed By: #### Seamus S7LC #### [facility] [address] [place] [address] OXYCODONE SCREEN Negative Normal Cutoff 20 [facility] Comment on above: Performed By: #### Seamus S7LC #### [facility] [address] [place] [address] PCP SCREEN Negative Normal Cutoff 10 [facility] Comment on above: Performed By: #### Seamus S7LC #### [facility] [address] [place] [address] NICOTINE+METABOLITES,Son [id number] <2 Normal [facility] Comment on above: Performed By: #### N I+ME #### [facility] [address] [place] [address] COTININE <2 Normal [facility] Comment on above: Performed By: #### N I+ME #### [facility] [address] [place] [address] NICOTINE <2 Normal [facility] Comment on above: Result Comment: Cons istent with abstinence from nicotine-containing products for at least 1 week. INTERPRETIVE INFORMATION: Nicotine and Metabolites, Serum or Plasma, Quantitative Methodology: Quantitative Liquid Chromatography-Tandem Mass Spectrometry Positive cutoff: 2 ng/mL For medical purposes only; not valid for forensic use. This test is designed to evaluate recent use of nicotine-containing products. Passive and active exposure cannot be discriminated definitively, although a cutoff of 10 ng/mL cotinine is frequently used for surgery qualification purposes. For smoking cessation programs or compliance testing, the absence of expected drug(s) and/or drug metabolite(s) may indicate non-compliance, inappropriate timing of specimen collection relative to drug administration, poor drug absorption, or limitations of testing. This test cannot distinguish between use of tobacco and purified nicotine products. The concentration value must be greater than or equal to the cutoff to be reported as positive. This test was developed and its performance characteristics determined by [facility]. It has not been cleared or approved by the [place] Food and Drug Administration. This test was performed in a CLIA certified laboratory and is intended for clinical purposes. Performed By: [facility] [address] [place] [address] Gas Dispatcher: Eboni Izquierdo MD Performed By: #### N I+ME #### [facility] [address] [place] [address] T-SPOT TBon 09-02-2021 NIL[NEG]CONTROL SPOT COUNT Passed Normal [facility] Comment on above: Performed By: #### T SPOT #### [facility] [id number] [place] [address] PANEL A SPOT COUNT 1 Normal [facility] Comment on above: Performed By: #### T SPOT #### [facility] [address] [place] [address] PANEL B SPOT COUNT 0 Normal [facility] Comment on above: Performed By: #### T SPOT #### [facility] [address] [place] [address] POS CONTROL SPOT COUNT Passed Normal [facility] Comment on above: Performed By: #### T SPOT #### [facility] [address] [place] [address] T-SPOT.TB INTERP Negative Normal Normal Value: Negative [facility] Comment on above: Result Comment: A ne gative test result does not exclude the possibility of exposure to or infection with Mycobacterium tuberculosis (M. tuberculosis). Patients with recent exposure to TB infected individuals exhibiting a negative T-SPOT.TB result should be considered for retesting within 6 weeks or if other relevant clinical symptoms indicate. Results from T-SPOT.TB testing must be used in conjunction with each individual's epidemiological history, current medical status, and results of other diagnostic evaluations. The T-SPOT.TB test is qualitative and results are reported as positive, borderline or negative, given that the test controls perform as expected. In line with the Centers for Disease Control and Prevention's 2010 recommendation to report quantitative measurements alongside the qualitative result, the laboratory provides spot counts for informational purposes only. The T-SPOT.TB test should not be interpreted as a quantitative test. Performed By: #### T SPOT #### [facility] [address] [place] [address] ABO/RH GROUP TESTon 08-31-19 ABO TYPE O Normal [facility] Comment on above: Performed By: #### H BAB3 #### [facility] [address] [place] [address] RH TYPE Positive Normal [facility] Comment on above: Performed By: #### H BAB3 #### [facility] [address] [place] [id number] AUTOCROSSMATCH, FLOWon 08-30 AUTOCROSSMATCH, FLOW Canceled Normal [facility] Comment on above: Order Comment: TEST AUTOCROSSMATCH, FLOW WAS CANCELLED, 08/30/2021 15:15 ordered under wrongvisit, reordered. please do not redraw. Result Comment: Test performed at [facility] 6[facility] [id number] [place] [address] Performed By: #### H BAB3 #### [facility] [address] [place] [id number] Blood Typing (ABO + Rho D)on 08-30-2021 ABO group Nom (Bld) O [facility] 2100 Work Phone: Rh immune globulin screen (Bld) [Interp] Positive [facility] - [facility] 2100 Work Phone: C PEPTIDEon 08-30-2021 C PEPTIDE 3.2 ng/mL Normal 0.7 - 3.9 [facility] Comment on above: Performed By: #### Ramón ESPINAL #### [facility] [address] [place] [address] C Peptide, Serumon 2 C peptide [Mass/Vol] 3.2 ng/mL 0.7 - 3.9 [facility] 2100 Work Phone: CBCon 08-30-2021 Erythrocyte distribution width (RBC) [Ratio] 13.2 % Normal 11.5 - 14.5 [facility] Comment on above: Performed By: #### Ramón ESPINAL #### [facility] [address] [place] [address] Hematocrit (Bld) [Volume fraction] 35.8 % Low 36.0 - 46.0 [facility] Comment on above: Performed By: #### Ramón ESPINAL #### [facility] [address] [place] [address] Hemoglobin (Bld) [Mass/Vol] 11.9 g/dL Low 12.0 - 16.0 [facility] Comment on above: Performed By: #### Ramón ESPINAL #### [facility] [address] [place] [address] MCHC (RBC) [Mass/Vol] 33.2 g/dL Normal 32.0 - 36.0 [facility] Comment on above: Performed By: #### Ramón ESPINAL #### [facility] [address] [place] [address] MCV (RBC) [Entitic vol] 95 fL Normal 80 - 100 [facility] Comment on above: Performed By: #### Ramón ESPINAL #### [facility] [address] [place] [address] NUCLEATED RBC 0.0 /100 WBC Normal 0.0-0.0 [facility] Comment on above: Performed By: #### Ramón ESPINAL #### [facility] [address] [place] [address] Platelets (Bld) [#/Vol] 168 10*3/uL Normal 150 - 450 [facility] Comment on above: Performed By: #### V ARZG #### [facility] [address] [place] [address] RBC 3.76 x10E12/L Low 4.00 - 5.20 [facility] Comment on above: Performed By: #### V ARZG #### [facility] [address] [place] [address] WBC (Bld) [#/Vol] 6.9 10*3/uL Normal 4.4 - 11.3 [facility] Comment on above: Performed By: #### V ARZG #### [facility] [address] [place] [address] CMV IGGon 08-30-2021 CMV IGG AB Non-Reactive Normal NONREACTIVE [facility] Comment on above: Performed By: #### H BAB3 #### [facility] [address] [place] [address] CMV IgGon 08-30-2021 CMV IgG Non-Reactive See Below [facility]- [facility] 2100 Work Phone: Comment on above: SOURCE: Reference Ra nge: NONREACTIVE SOURCE: Reference Ra nge: NONREACTIVE Results from patients taking biotin supplements or receiving high-dose biotin therapy should be interpreted with caution due to possible interference with this test. Providers may contact their local laboratory for further information. SOURCE: Reference Ra nge: NONREACTIVE Biotin interference may cause falsely decreased results. Patients taking a Biotin dose of up to 5 mg/day should refrain from taking Biotin for 24 hours before sample collection. Providers may contact their local laboratory for further information. CREATININEon 08-30-2021 Creatinine [Mass/Vol] 3.99 mg/dL High 0.50 - 1.05 [facility] Comment on above: Performed By: #### V ARZG #### [facility] [address] [place] [address] GFR/1.73 sq M.predicted among non-blacks MDRD (S/P/Bld) [Vol rate/Area] 13 mL/min/{1.73_m2} Abnormal >90 [facility] Comment on above: Result Comment: CALC ULATIONS OF ESTIMATED GFR ARE PERFORMED USING THE 2020 CKD-EPI STUDY REFIT EQUATION WITHOUT THE RACE VARIABLE FOR THE IDMS-TRACEABLE CREATININE METHODS. https://jasn.asnjournals.org/content/early/ASN.38347 01684 Performed By: #### V ARZG #### [facility] [address] [place] [address] Creatinine, Serumon 08-31-19 Creatinine [Mass/Vol] 3.99 mg/dL above high threshold See Below [facility]- [facility] [address] Work Phone: Comment on above: SOURCE: Reference Ra nge: 0.50 - 1.05 Creatinine, Serum 13 {mL/min/1.73m2} Abnormal >90 [facility] 2100 Work Phone: Comment on above: CALCULATIONS OF BRIA MATED GFR ARE PERFORMED USING THE 2020 CKD-EPI STUDY REFIT EQUATION WITHOUT THE RACE VARIABLE FOR THE IDMS-TRACEABLE CREATININE METHODS.https://jasn.asnjournals.org/content//A SN.6814038892 EBV PANELon 08-30-2021 VCA IGM ANTIBODY Negative Normal NEGATIVE [facility] Comment on above: Performed By: #### T SPOT #### [facility] [address] [place] [place] [address] EBV EA-D IGG ANTIBODY Negative Normal NEGATIVE [facility] Comment on above: Performed By: #### T SPOT #### [facility] [address] [place] [address] EBV INTERPRETATION SEE BELOW Normal [facility] Comment on above: Result Comment: . EB V INTERPRETATION CHART . VCA-IGG VCA-IGM NA-IGG EA-IGG . PRIMARY ACUTE +/- +/- - +/- LATE ACUTE + +/- +/- +/- RECOVERING + - - + PREVIOUS INFECTION + - +/- - Performed By: #### T SPOT #### [facility] [address] [place] [place] [address] EBV NA-1 IGG ANTIBODY Positive Abnormal NEGATIVE [facility] Comment on above: Performed By: #### T SPOT #### [facility] [address] [place] [address] VCA IGG ANTIBODY Positive Abnormal NEGATIVE [facility] Comment on above: Performed By: #### T SPOT #### [facility] [address] [place] [address] Established Visit (Nephrolog y)on 08-30-2021 Established Visit (Nephrology) No report was sent Normal [facility] HEMOGLOBIN A1Con 08-30-2021 Glucose [Mass/Vol] 100 mg/dL Normal [facility] Comment on above: Performed By: #### T SPOT #### [facility] [address] [place] [address] HbA1c (Bld) [Mass fraction] 5.1 % Normal [facility] Comment on above: Result Comment: Diag nosis of Diabetes-Adults Non-Diabetic: < or = 5.6% Increased risk for developing diabetes: 5.7-6.4% Diagnostic of diabetes: > or = 6.5% . Monitoring of Diabetes Age (y) Therapeutic Goal (%) Adults: >18 <7.0 Pediatrics: 13-18 <7.5 7-12 <8.0 0- 6 7.5-8.5 [place] [employer]. Diabetes Care 33(S1), Mar 2009. Performed By: #### T SPOT #### [facility] [address] [place] [address] HEPATIC FUNCTION PANELon Albumin [Mass/Vol] 4.3 g/dL Normal 3.4 - 5.0 [facility] Comment on above: Performed By: #### V ARZG #### [facility] [address] [place] [address] ALP [Catalytic activity/Vol] 73 U/L Normal 33 - 110 [facility] Comment on above: Performed By: #### V ARZG #### [facility] [address] [place] [address] ALT [Catalytic activity/Vol] 34 U/L Normal 7 - 45 [facility] Comment on above: Result Comment: Angela ents treated with Sulfasalazine may generate falsely decreased results for ALT. Performed By: #### V ARZG #### [facility] [address] [place] [address] AST [Catalytic activity/Vol] 37 U/L Normal 9 - 39 [facility] Comment on above: Performed By: #### V ARZG #### [facility] [address] [place] [address] Bilirubin [Mass/Vol] 0.6 mg/dL Normal 0.0 - 1.2 [facility] Comment on above: Performed By: #### V ARZG #### [facility] [address] [place] [address] Bilirubin.indirect [Mass/Vol] 0.1 mg/dL Normal 0.0 - 0.3 [facility] Comment on above: Performed By: #### V ARZG #### [facility] [address] [place] [address] Protein [Mass/Vol] 7.1 g/dL Normal 6.4 - 8.2 [facility] Comment on above: Performed By: #### V ARZG #### [facility] [address] [place] [address] HEPATITIS B CORE AB-TOTALon 08-30-2021 HEP. B CORE AB-TOTAL Non-Reactive Normal NONREACTIVE [facility] Comment on above: Result Comment: Resu lts from patients taking biotin supplements or receiving high-dose biotin therapy should be interpreted with caution due to possible interference with this test. Providers may contact their local laboratory for further information. Performed By: #### H BAB3 #### [facility] [address] [place] [address] HEPATITIS B SURF ABon 2021 HEP B SURF AB <3.1 Normal <10 [facility] Comment on above: Result Comment: INTE RPRETIVE CRITERIA: <10 mIU/mL....NONREACTIVE >=10 mIU/mL...REACTIVE . Biotin interference may cause falsely decreased results. Patients taking a Biotin dose of up to 5 mg/day should refrain from taking Biotin for 24 hours before sample collection. Providers may contact their local laboratory for further information. Performed By: #### H BAB3 #### [facility] [address] [place], [place] Lab Specimen Source Normal [facility] Comment on above: Performed By: #### H BAB3 #### [facility] [address] [place], [place] Performed By: #### V ARZG #### [facility] [address] [place], [place] Performed By: #### H BSAG #### [facility] [address] [place], [place] Performed By: #### H IV #### [facility] [address] [place], [place] Performed By: #### T SPOT #### [facility] [address] [place] [address] HEPATITIS B SURFACE AGon HEP.B SURFACE AG Non-Reactive Normal NONREACTIVE [facility] Comment on above: Result Comment: Biot in interference may cause falsely decreased results. Patients taking a Biotin dose of up to 5 mg/day should refrain from taking Biotin for 24 hours before sample collection. Providers may contact their local laboratory for further information. Performed By: #### H BSAG #### [facility] [address] [place], [place] HEPATITIS C ABon 08-30-2021 HEPATITIS C AB Non-Reactive Normal NONREACTIVE [facility] Comment on above: Result Comment: Resu lts from patients taking biotin supplements or receiving high-dose biotin therapy should be interpreted with caution due to possible interference with this test. Providers may contact their local laboratory for further information. Performed By: #### H BAB3 #### [facility] [address] [place], [place] HIV 1/2 ANTIGEN/ANTIBODY SCR EEN WITH REFLEX TO CONFIRMATIONon 08-30-2021 HIV 1/2 AG/AB SCREEN Non-Reactive Normal NONREACTIVE [facility] Comment on above: Result Comment: HIV Ag/Ab screen is performed using the Siemens [employer] HIV Ag/Ab Combo assay which detects the presence of HIV p24 antigen as well as antibodies to HIV-1 (Group M and O) and HIV-2. . No laboratory evidence of HIV infection. If acute HIV infection is suspected, consider testing for HIV RNA by PCR (viral load). Performed By: #### H IV #### [facility] [address] [place] [address] HIV 1+2 Ab Qn (S) Non-Reactive See Below [facility] 2100 Work Phone: Comment on above: SOURCE: Reference Ra nge: NONREACTIVE HIV Ag/Ab screen is performed using the Siemens [employer] HIV Ag/Ab Combo assay which detects the presence of HIV p24 antigen as well as antibodies to HIV-1 (Group M and O) and HIV-2..No laboratory evidence of HIV infection. If acute HIV infection is suspected, consider testing for HIV RNA by PCR (viral load). HLA CLASS I AB SCREEN,FCon 0 08-30-2021 HLA CLASS I AB SCREEN,FC Canceled Normal [facility] Comment on above: Order Comment: TEST HLA CLASS I AB SCREEN,FC WAS CANCELLED, 08/30/2021 15:15 ordered under wrong visit, reordered. please do not redraw. Performed By: #### H LAS1 #### [facility] [address] [place] [address] HLA CLASS II AB SCREEN,FCon 08-30-2021 HLA CLASS II AB SCREEN,FC Canceled Normal [facility] Comment on above: Order Comment: TEST HLA CLASS II AB SCREEN,FC WAS CANCELLED, 08/30/2021 15:15 ordered underwrong visit, reordered. please do not redraw. Performed By: #### H BAB3 #### [facility] [address] [place] [address] HLA-A,B,C LRon 08-30-2021 HLA-A LOCUS LR TYPE Canceled Normal [facility] Comment on above: Order Comment: TEST HLA-A,B,C LR WAS CANCELLED, 08/30/2021 15:15 ordered under wrong visit,reordered. please do not redraw. Performed By: #### T SPOT #### [facility] [address] [place] [address] HLA-B LOCUS LR TYPE Canceled Normal [facility] Comment on above: Order Comment: TEST HLA-A,B,C LR WAS CANCELLED, 08/30/2021 15:15 ordered under wrong visit,reordered. please do not redraw. Performed By: #### T SPOT #### [facility] [address] [place] [address] HLA-C LOCUS LR TYPE Canceled Normal [facility] Comment on above: Order Comment: TEST HLA-A,B,C LR WAS CANCELLED, 08/30/2021 15:15 ordered under wrong visit,reordered. please do not redraw. Performed By: #### T SPOT #### [facility] [address] [place] [address] HLA-DPB1 HR TYPINGon 022 HLA-DPB1 HR TYPING Canceled Normal [facility] Comment on above: Order Comment: TEST HLA-DPB1 HR TYPING WAS CANCELLED, 08/30/2021 15:15 ordered under wrongvisit, reordered. please do not redraw. Performed By: #### T SPOT #### [facility] [address] [place] [address] HLA-DQB1 HR TYPINGon 022 HLA-DQB1 HR TYPING Canceled Normal [facility] Comment on above: Order Comment: TEST HLA-DQB1 HR TYPING WAS CANCELLED, 08/30/2021 15:15 ordered under wrongvisit, reordered. please do not redraw. Performed By: #### T SPOT #### [facility] [address] [place] [address] HLA-DRB1/3/4/5 AND DQB1 LR T YPINGon 08-30-2021 HLA-DRB1/3/4/5 & DQB1 LR TYPING Canceled Normal [facility] Comment on above: Order Comment: TEST HLA-DRB1/3/4/5 AND DQB1 LR TYPING WAS CANCELLED, 08/30/2021 15:15 orderedunder wrong visit, reordered. please do not redraw. Performed By: #### H BAB3 #### [facility] [address] [place] [address] Hemoglobin A1Con 08-30-2021 Glucose [Mass/Vol] 100 mg/dL [facility] 2100 Work Phone: HbA1c (Bld) [Mass fraction] 5.1 % [facility]- [facility] 2[address] Work Phone: Comment on above: Diagnosis of Diabete s-Adults Non-Diabetic: < or = 5.6% Increased risk for developing diabetes: 5.7-6.4% Diagnostic of diabetes: > or = 6.5%. Monitoring of Diabetes Age (y) Therapeutic Goal (%) Adults: >18 <7.0 Pediatrics: 13-18 <7.5 7-12 <8.0 0- 6 7.5-8.5 [employer]. Diabetes Care 33(S1), Mar 2009. Hepatic Function Panelon Albumin BCP dye [Mass/Vol] 4.3 g/dL 3.4 - 5.0 [facility] Work Phone: Comment on above: SOURCE: ALP [Catalytic activity/Vol] 73 U/L 33 - 110 [facility] [employer] Work Phone: ALT With P-5'-P [Catalytic activity/Vol] 34 U/L 7 - 45 [facility] Work Phone: Comment on above: Patients treated wit h Sulfasalazine may generate falsely decreased results for ALT. AST With P-5'-P [Catalytic activity/Vol] 37 U/L 9 - 39 [facility] Work Phone: Bilirubin [Mass/Vol] 0.6 mg/dL 0.0 - 1.2 [facility]- [place] Work Phone: Bilirubin.direct [Mass/Vol] 0.1 mg/dL 0.0 - 0.3 [facility] [employer] Work Phone: Protein [Mass/Vol] 7.1 g/dL 6.4 - 8.2 [facility] benjam[facility]- [facility] Work Phone: Hepatitis B Surface Antibody on 08-30-2021 HBV surface Ag IA Ql <3.1 <10 [facility]- [facility] [employer] Work Phone: [phone] Comment on above: SOURCE: INTERPRETIVE CRITERIA:<10 mIU/mL....NONREACTIVE >=10 mIU/mL...REACTIVE . Biotin interference may cause falsely decreased results. Patients taking a Biotin dose of up to 5 mg/day should refrain from taking Biotin for 24 hours before sample collection. Providers may contact their local laboratory for further information. Laboratory - Drug toxicology on 08-30-2021 Amphetamines Screen Ql Negative Cutoff 20 [facility] 2100 Work Phone: [phone] Barbiturates Screen Ql Negative Cutoff 50 [facility] 2100 Work Phone: [phone] Benzodiazepines Screen Ql Negative Cutoff 50 [facility] 2099 Work Phone: [phone] Cannabinoids Screen Ql Negative Cutoff 20 [facility] 2100 Work Phone: [phone] Cocaine Screen Ql Negative Cutoff 20 [facility]urg sampson- [facility] 2100 Work Phone: [phone] Methadone Screen Ql Negative Cutoff 25 [facility]ano rgery- [facility] 2100 Work Phone: [phone] Methamphetamine Ql Negative Cutoff 20 [facility] benjamín- [facility] 2100 Work Phone: [phone] Opiates Screen Ql Negative Cutoff 20 [facility] sam[facility]- [facility] 2100 Work Phone: [phone] oxyCODONE Ql Negative Cutoff 20 [facility]- [facility] 2100 Work Phone: [phone] Phencyclidine Screen Ql Negative Cutoff 10 [facility] 2100 Work Phone: [phone] Laboratory - HLA antigenson 08-30-2021 HLA-A locus Nom (Bld/Tiss) Canceled [facility] Work Phone: HLA-B locus Nom (Bld/Tiss) Canceled [facility] Work Phone: [phone] HLA-C locus Nom (Bld/Tiss) Canceled [facility] Work Phone: [phone] HLA-DP2 Ql (Bld/Tiss) Canceled [facility] Work Phone: HLA-DQB1 High resolution Nom (Bld/Tiss) Canceled [facility] Work Phone: HLA-DR+DQ Nom (Bld/Tiss) Canceled [facility] Work Phone: Laboratory - Hematology and Cell countson 08-30-2021 Erythrocyte distribution width (RBC) [Ratio] 13.2 % See Below [facility] 2100 Work Phone: [phone] Comment on above: Reference Range: 11. 5 - 14.5 Hematocrit (Bld) [Volume fraction] 35.8 % below low threshold See Below [facility] 2100 Work Phone: [phone] Comment on above: Reference Range: 36. 0 - 46.0 Hemoglobin (Bld) [Mass/Vol] 11.9 g/dL below low threshold See Below [facility] 2100 Work Phone: [phone] Comment on above: Reference Range: 12. 0 - 16.0 MCHC (RBC) [Mass/Vol] 33.2 g/dL See Below [facility]- [facility]- [facility] 2099 Work Phone: [phone] Comment on above: Reference Range: 32. 0 - 36.0 MCV (RBC) [Entitic vol] 95 fL 80 - 100 [facility] 2099 Work Phone: [phone] Platelets (Bld) [#/Vol] 168 10*3/uL 150 - 450 [facility] 2099 Work Phone: [phone] RBC (Bld) [#/Vol] 3.76 {x10E12/L} below low threshold See Below [facility] 2100 Work Phone: Comment on above: Reference Range: 4.0 0 - 5.20 WBC (Bld) [#/Vol] 6.9 10*3/uL 4.4 - 11.3 [facility] benjamín- [facility] 2099 Work Phone: Laboratory - Microbiology an d Antimicrobial susceptibilityon 08-30-2021 EBV capsid IgG IA Qn (S) Positive Abnormal NEGATIVE [facility] 2100 Work Phone: Comment on above: SOURCE: EBV capsid IgM IA Qn (S) Negative NEGATIVE [facility] 2100 Work Phone: EBV early IgM IA Qn (S) Negative NEGATIVE [facility] 2100 Work Phone: EBV nuclear IgG IA Qn (S) Positive Abnormal NEGATIVE [facility] 2100 Work Phone: Nicotine+Metabolites, Serumo n 08-30-2021 Cotinine [Mass/Vol] <2 MG-[facility] rgery- [facility] 2100 Work Phone: Nicotine [Mass/Vol] <2 [facility] rgery- [facility] 2100 Work Phone: Comment on above: Consistent with abst inence from nicotine-containingproducts for at least 1 week.INTERPRETIVE INFORMATION: Nicotine and Metabolites, Serum or Plasma, QuantitativeMethodology: Quantitative Liquid Chromatography-Tandem Mass SpectrometryPositive cutoff: 2 ng/mLFor medical purposes only; not valid for forensic use. This test is designed to evaluate recent use of nicotine-containing products. Passive and active exposure cannot be discriminated definitively, although a cutoff of 10 ng/mL cotinine is frequently used for surgery qualification purposes. For smoking cessation programs or compliance testing, the absence of expected drug(s) and/or drug metabolite(s) may indicate non-compliance, inappropriate timing of specimen collection relative to drug administration, poor drug absorption, or limitations of testing. This test cannot distinguish between use of tobacco and purified nicotine products. The concentration value must be greater than or equal to the cutoff to be reported as positive. This test was developed and its performance characteristics determined by [facility]. It has not been cleared or approved by the [place] Food and Drug Administration. This test was performed in a CLIA certified laboratory and is intended for clinical purposes.Performed By: [facility] [place] [id number] Director: Eboni Izquierdo MD [id number] [Mass/Vol] <2 [facility] 2100 Work Phone: No Panel Informationon 08-30 Annotation comment [Interpretation] Narrative See Note [facility] 2100 Work Phone: Comment on above: INTERPRETIVE INFORMA TION: Drug Screen 9 Panel, Serum or Plasma - Immunoassay Screen with Reflex to Mass Spectrometry Confirmation/Quantitation1. Methodology: Qualitative Immunoassay Screen2. Drugs/Drug classes reported as Positive are automatically reflexed to mass spectrometry confirmation/quantitation testing. An immunoassay unconfirmed positive screen result may be useful for medical purposes but does not meet forensic standards. 3. The absence of expected drug(s) and/or drug metabolite(s) may indicate noncompliance, inappropriate timing of specimen collection relative to drug administration, poor drug absorption, or limitations of testing. The concentration at which the screening test can detect a drug or metabolite varies within a drug class. Specimens for which drugs or drug classes are detected by the screen are automatically reflexed to a second, more specific technology (mass spectrometry). The concentration value must be greater than or equal to the cutoff to be reported as positive. Interpretive questions should be directed to the laboratory.4. For medical purposes only; not valid for forensic use.This test was developed and its performance characteristics determined by [facility]. It has not been cleared or approved by the [place] Food and Drug Administration. This test was performed in a CLIA certified laboratory and is intended for clinical purposes.Performed By: [facility] [place] [address] [id number] Director: Eboni Izquierdo MD 0.0 {/100_WBC} 0.0-0.0 [facility] Work Phone: SEE BELOW [facility] Work Phone: Comment on above: . EBV INTERPRETATION CHART. VCA-IGG VCA-IGM NA-IGG EA-IGG. PRIMARY ACUTE +/- +/- - +/-LATE ACUTE + +/- +/- +/-RECOVERING + - - +PREVIOUS INFECTION + - +/- - Canceled [facility] Work Phone: Comment on above: Test performed at [facility], [address] [address] [place] [address] Office VIsit (Pre-Transplant Surgery)on 08-30-2021 Follow-up visit Diagnosis/Problems Assessed Pre-transplant evaluation for kidney transplant (V72.83) (Z01.818) Hypertension (401.9) (I10) Morbid obesity (278.01) (E66.01) Myocardial infarction (410.90) (I21.9) H/O heart artery stent (V45.82) (Z95.5) 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 This data included [facility] data compared to National data readily available for review on https://www.SRTR.org. The patient also had attended the kidney transplant education class provided by the transplant institute. The difference between allograft function was discussed comparing living donor, KDPI 0-85%, and >85% kidneys. Further discussion included: -The transplant selection committee process. -The need for lifelong immunosuppressive therapy, and the side effects of these medications including the risk of infections, cancer, and lymphoma. -The wait list time approximately is 5 years or more for donor transplants and the statistical superiority of a living donor. - Using identified donors with risk criteria for transmission of infection -Potential transmission of infectious disease from any donors, as well as living donors. -The possibility of transmission of tumors and infections via the transplanted organ. -The inability to completely test for all potential harmful tumors or infectious agents. -The possibility of listing at multiple locations. Surgical complications including need for reoperation(s) including but not limited to: -Bleeding. -Repair of leaks. -Control of infection. -Possible kidney transplant removal. The medical complications including but not limited to: -. -Cardiac. -Pulmonary. -Infectious. -Neurologic. -Other Complications. We also discussed how the kidney transplant could function: -Non-function and possible kidney transplant removal within the first 3 to 6 months. -Delayed graft function (dialysis needed after transplant). -The potential of recurrence of kidney disease leading to kidney transplant graft loss. discussed with the patient and discussed with the patient's family. Consultants needed: Cardiology. Based on today's encounter: ZAYDA is an unacceptable candidate. COVID-19 Risk Consent for: Provider has reviewed the risk of sanjay COVID-19 and the impact during the post-operative or post-procedure recovery process. By signing my name below, I, Simeon Wolff, attest that this documentation has been prepared under the direction and in the presence of Dr. Jessi Young. All medical record entries made by the Scribe were at my direction and personally dictated by me. I have reviewed the chart and agree that the record accurately reflects my personal performance of the history, physical exam, discussion and plan. Provider Impressions I had a discussion with Dr. Chavez, one of the Transplant Nephrologists, today in clinic about the patient's case. We both agreed that her cardiac disease is currently too extensive to carry on with the rest of the evaluation. Her sister is planning to get an appointment with her billing machine operator for the patient in the next week or so. We have advised her that if she is unable to get an appointment in a timely fashion, we will refer her to a Concrete Conveyor Operator at . At this point, given the extent of the patient's cardiac disease, she would be extremely high risk for kidney transplant. We will discuss her case at the consent agenda and close her evaluation for the time being. This discussion was had with the patient and her family. Chief Complaint Kidney transplant surgical evaluation. History of Present Illness Kidney Transplant Reason For Visit: Initial Surgical Evaluation. CKD: stage 5. TIEDI: diabetes onset. Dialysis: Hemodialysis:Dialysis Center: [facility] Compliance/Tolerance/Con trol: good compliance with treatment. Pertinent History: congestive heart failure and diabetes. Referral: Dr. Lee Cash (tel: [phone]; fax: [phone]). I am seeing ZAYDA DAVIS at the referring provider's request for surgical suitability for kidney transplant candidate listing at [facility] [place]. History of Present Illness Comments: Ms. ZAYDA DAVIS is a 55 year old female with end stage renal disease secondary to diabetes mellitus. She undergoes hemodialysis TThS at [facility]. Ms. Davis presents today for a surgical evaluation towards potential kidney transplantation. She is accompanied by her sister and her daughter. She recently started dialysis in 2020 and uses fistula for dialysis acce (more content not included)... Normal [facility] PHOSPHORUSon 08-30-2021 Phosphate [Mass/Vol] 4.6 mg/dL Normal 2.5 - 4.9 [facility] Comment on above: Result Comment: The performance characteristics of phosphorus testing in heparinized plasma have been validated by the individual laboratory site where testing is performed. Testing on heparinized plasma is not approved by the FDA; however, such approval is not necessary. Performed By: #### V ARZG #### [facility] [address] [place] [address] Phosphorus, Serumon 08-31-19 22 Phosphate [Mass/Vol] 4.6 mg/dL 2.5 - 4.9 [facility] Work Phone: Comment on above: SOURCE: The performa nce characteristics of phosphorus testing in heparinized plasma have been validated by the individual laboratory site where testing is performed. Testing on heparinized plasma is not approved by the FDA; however, such approval is not necessary. SYPHILIS SCREENING WITH REFL EXon 08-30-2021 SYPHILIS TOTAL AB Non-Reactive Normal NONREACTIVE [facility] Comment on above: Result Comment: No s ignificant level of Treponema pallidum antibody detected. Repeat testing in 2 to 4 weeks may be considered if early infection or incubating syphilis infection is suspected. Performed By: #### H BAB3 #### [facility] [address] [place] [address] T. pallidum IgG+IgM IA Ql (S) Non-Reactive See Below [facility] Work Phone: Comment on above: SOURCE: Reference Ra nge: NONREACTIVENo significant level of Treponema pallidum antibody detected. Repeat testing in 2 to 4 weeks may be considered if early infection or incubating syphilis infection is suspected. T-SPOT. TBon 08-30-2021 T-SPOT. TB Negative NEGATIVE [facility] Work Phone: Comment on above: Reference Range: Nor mal Value: NegativeA negative test result does not exclude the possibility of exposure to or infection with Mycobacterium tuberculosis (M. tuberculosis). Patients with recent exposure to TB infected individuals exhibiting a negative T-SPOT.TB result should be considered for retesting within 6 weeks or if other relevant clinical symptoms indicate. Results from T-SPOT.TB testing must be used in conjunction with each individual's epidemiological history, current medical status, and results of other diagnostic evaluations. The T-SPOT.TB test is qualitative and results are reported as positive, borderline or negative, given that the test controls perform as expected. In line with the Centers for Disease Control and Prevention's 2010 recommendation to report quantitative measurements alongside the qualitative result, the laboratory provides spot counts for informational purposes only. The T-SPOT.TB test should not be interpreted as a quantitative test. T-SPOT. TB Passed [facility] Work Phone: T-SPOT. TB 0 1 [facility] Work Phone: T-SPOT. TB 1 1 [facility] Work Phone: Tobacco Screening.on 022 Fall risk assessment b) One or more fall s in the last year [facility] Work Phone: Tobacco use status CPHS b) No [facility] Work Phone: UA MICROSCOPICon 08-30-2021 BACTERIA 4+ /HPF Abnormal [facility] Comment on above: Performed By: #### V YAJAIRAG #### [facility] [address] [place] [address] HYALINE CAST 4+ /LPF Abnormal [facility] Comment on above: Performed By: #### V YAJAIRAG #### [facility] [address] [place] [address] Mucus Ql (Urine sed) 1+ /LPF Normal [facility] Comment on above: Performed By: #### V MEIRZG #### [facility] [address] [place] [address] RBC 4 /HPF Normal 0-5 [facility] Comment on above: Performed By: #### Ramón WORLEYZG #### [facility] [address] [place] [address] SQUAMOUS EPITH. CELLS 13 /HPF Normal [facility] Comment on above: Performed By: #### Ramón WORLEYZG #### [facility] [address] [place] [address] WBC 16 /HPF Abnormal 0-5 [facility] Comment on above: Performed By: #### Ramón GATESG #### [facility] [address] [place] [address] URINALYSISon 08-30-2021 Appearance (U) HAZY Normal CLEAR [facility] Comment on above: Performed By: #### H BAB3 #### [facility] [address] [place] [address] Bilirubin Ql (U) Negative Normal NEGATIVE [facility] Comment on above: Performed By: #### H BAB3 #### [facility] [address] [place] [address] Color (U) YELLOW Normal STRAW,YELLOW [facility] Comment on above: Performed By: #### H BAB3 #### [facility] [address] [place] [address] Glucose Ql (U) Negative Normal NEGATIVE [facility] Comment on above: Performed By: #### H BAB3 #### [facility] [address] [place] [address] Hemoglobin Ql (U) Negative Normal NEGATIVE [facility] Comment on above: Performed By: #### H BAB3 #### [facility] [address] [place] [address] Ketones Ql (U) Negative Normal NEGATIVE [facility] Comment on above: Performed By: #### H BAB3 #### [facility] [address] [place] [address] Leukocyte esterase Test strip Ql (U) TRACE Abnormal NEGATIVE [facility] Comment on above: Performed By: #### H BAB3 #### [facility] [address] [place] [address] Nitrite Ql (U) Negative Normal NEGATIVE [facility] Comment on above: Performed By: #### H BAB3 #### [facility] [address] [place] [address] pH (U) 5.0 [pH] Normal 5.0 - 8.0 [facility] Comment on above: Performed By: #### H BAB3 #### [facility] [address] [place] [address] Protein Ql (U) 100 (2+) Abnormal NEGATIVE [facility] Comment on above: Performed By: #### H BAB3 #### [facility] [address] [place] [address] Specific gravity (U) [Rel density] 1.015 Normal 1.005 - 1.035 [facility] Comment on above: Performed By: #### H BAB3 #### [facility] [address] [place] [address] Urobilinogen (U) [Mass/Vol] mg/dL Normal 0.0 - 1.9 [facility] Comment on above: Performed By: #### H BAB3 #### [facility] [address] [place] [address] Urinalysison 08-30-2021 Color (U) YELLOW See Below [facility] [employer] Work Phone: Comment on above: Reference Range: STR AW,YELLOW Glucose Ql (U) Negative NEGATIVE [facility] Work Phone: Ketones Ql (U) Negative NEGATIVE [facility] Work Phone: Leukocyte esterase Test strip Ql (U) TRACE Abnormal NEGATIVE [facility] Work Phone: pH (U) 5.0 [pH] 5.0 - 8.0 [facility] Work Phone: Protein (U) [Mass/Vol] 100 (2+) Abnormal NEGATIVE [facility] Work Phone: RBC (U) [#/Vol] Negative NEGATIVE [facility] Work Phone: Specific gravity (U) [Rel density] 1.015 1 See Below [facility] Work Phone: Comment on above: Reference Range: 1.0 05 - 1.035 Urinalysis <2.0 0.0 - 1.9 [facility] Work Phone: Urinalysis HAZY CLEAR [facility] Work Phone: Urinalysis, Microscopicon Hyaline casts LM Ql (Urine sed) 4+ Abnormal [facility] Work Phone: Urinalysis, Microscopic 1+ [facility] Work Phone: Urinalysis, Microscopic 4+ Abnormal [facility] Work Phone: Urinalysis, Microscopic 13 {/HPF} [facility] Work Phone: Urinalysis, Microscopic 4 {/HPF} 0-5 [facility] Work Phone: Urinalysis, Microscopic 16 {/HPF} Abnormal 0-5 [facility] Work Phone: VARICELLA ZOSTER IGG ABon VARICELLA ZOSTER IGG AB Positive Normal NEGATIVE [facility] Comment on above: Result Comment: INTE RPRETATIVE COMMENT NEGATIVE: No IgG antibodies specific to VZV detected. It is likely that the patient has not had a previous exposure to VZV through infection or vaccination. Alternatively, the patient may have been exposed to VZV but a failure to respond may indicate immunodeficiency. EQUIVOCAL:Equivocal results; obtain additional sample for retesting. POSITIVE: IgG antibody to VZV detected. This may indicate that the patient was exposed to VZV through infection or vaccination. The interpretation of serological tests should take into account the immunological status of the patient. Test results for patients, including immunocompromised patients, neonates, and pediatric patients, reflect their capacity to respond immunologically to the virus as well as their exposure to the pathogen. Patients treated with IVIG may demonstrate altered results in serological assays. Performed By: #### V KYLIE #### [facility] [address] [place] [address] Varicella Zoster IgG Antibod yon 08-30-2021 VZV IgG IA Ql (S) Positive NEGATIVE [facility] [place] [facility] Work Phone: Comment on above: SOURCE: INTERPRETATI VE COMMENT NEGATIVE: No IgG antibodies specific to VZV detected. It is likely that the patient has not had a previous exposure to VZV through infection or vaccination. Alternatively, the patient may have been exposed to VZV but a failure to respond may indicate immunodeficiency. EQUIVOCAL:Equivocal results; obtain additional sample for retesting. POSITIVE: IgG antibody to VZV detected. This may indicate that the patient was exposed to VZV through infection or vaccination.The interpretation of serological tests should take into accountthe immunological status of the patient. Test results forpatients, including immunocompromised patients, neonates, andpediatric patients, reflect their capacity to respondimmunologically to the virus as well as their exposure to thepathogen. Patients treated with IVIG may demonstrate alteredresults in serological assays. LABORATORYOrdered By: SYSTEM SYSTEM on 01-10-2021 Hep B Surf Ab mIU/mL Invalid Interpretation Code >=10.0mIU/mL AH ADM SS Hep B Surf Ag Non-Reactive (01/10/21 7:59 AM) Invalid Interpretation Code Non-Reactive AH ADM SS LABORATORYOrdered By: Allegra Dowell on 01-08-2021 Albumin BCP dye [Mass/Vol] 3.2 G/dL Invalid Interpretation Code 3.5 - 5.0 G/dL AO ADM SS Calcium [Mass/Vol] 8.3 mg/dL Invalid Interpretation Code 8.4 - 10.2 mg/dL AO ADM SS Chloride [Moles/Vol] 100 mmol/L Invalid Interpretation Code 98 - 107 mmol/L AO ADM SS CO2 [Moles/Vol] 31 mmol/L Invalid Interpretation Code 22 - 29 mmol/L AO ADM SS Creatinine [Mass/Vol] 3.36 mg/dL Invalid Interpretation Code 0.55 - 1.02 mg/dL AO ADM SS Electrolyte Balance 8.0 mEq/L Invalid Interpretation Code AO ADM SS Glucose [Mass/Vol] 180 mg/dL Invalid Interpretation Code 70 - 105 mg/dL AO ADM SS Phosphate [Mass/Vol] 4.2 mg/dL Invalid Interpretation Code 2.7 - 4.5 mg/dL AO ADM SS Potassium [Moles/Vol] 3.7 mmol/L Invalid Interpretation Code 3.5 - 5.1 mmol/L AO ADM SS Sodium [Moles/Vol] 139 mmol/L Invalid Interpretation Code 136 - 145 mmol/L AO ADM SS Urea nitrogen [Mass/Vol] 105 mg/dL Invalid Interpretation Code 7 - 18 mg/dL AO ADM SS Urea nitrogen/Creatinine [Mass ratio] 31 ratio Invalid Interpretation Code 7 - 27 ratio AO ADM SS LABORATORYOrdered By: SYSTEM SYSTEM on 01-08-2021 GFR 17 ml/min/1.73sqm Invalid Interpretation Code AO Chemistry S GFR Non- 14 ml/min/1.73sqm Invalid Interpretation Code AO Chemistry S Millenium Collectionon 04-19 Millenium Collection Specimen sent,Resul ts will be sent to [facility] Comment on above: Performed By: #### C BCD #### [facility] [address] [place] [address] FOLIC ACIDon 03-02-2019 FOLIC ACID 10.7 ng/mL Normal 3.1-17.5 [facility] Comment on above: Performed By: #### V B12, FOL, LIPID, MG, T4, TSH #### [facility] [address] [place] [address] GLYCOHEMOGLOBIN (A1C)on Glucose [Mass/Vol] 151 mg/dL Normal [facility] Comment on above: Performed By: #### G LY #### [facility] [address] [place] [address] HbA1c (Bld) [Mass fraction] 6.9 % Normal [facility] Comment on above: Result Comment: Inte rpretation of Hgb A1C results: <5.7% Normal 5.7% - 6.4% Prediabetes >6.4% Diabetes SAMPLES FROM PATIENTS WITH HEMOLYTIC ANEMIAS OR THE PRESENCE OF UNSTABLE HEMOGLOBINS LIKE HbSS OR HbSC WILL EXHIBIT DECREASED GLYCATED HGB DUE TO THE SHORTENED LIFE SPAN OF THE RED CELLS.RESULTS ARE NOT RELIABLE IN PATIENTS WITH CHRONIC BLOOD LOSS. Performed By: #### G LY #### [facility] [address] [place] [address] LIPID PROFILE (FASTING)on Cholesterol [Mass/Vol] 115 mg/dL Normal 0-200 [facility] Comment on above: Performed By: #### V B12, FOL, LIPID, MG, T4, TSH #### [facility] [address] [place] [place] [address] Cholesterol in HDL [Mass/Vol] 34 mg/dL Normal 40-60 [facility] Comment on above: Performed By: #### V B12, FOL, LIPID, MG, T4, TSH #### [facility] [address] [place] [place] [address] Cholesterol in LDL [Mass/Vol] 54 mg/dL Normal 0-130 [facility] Comment on above: Performed By: #### V B12, FOL, LIPID, MG, T4, TSH #### [facility] [address] [place] [place] [address] Cholesterol.total/Chol esterol in HDL [Mass ratio] 3.4 mg/dl Normal 3.7-5.6 [facility] Comment on above: Performed By: #### V B12, FOL, LIPID, MG, T4, TSH #### [facility] [address] [place] [place] [address] Triglyceride [Mass/Vol] 137 mg/dL Normal 0-150 [facility] Comment on above: Performed By: #### V B12, FOL, LIPID, MG, T4, TSH #### [facility] [address] [place] [place] [address] VLDL CALCULATION 27 mg/dl Normal 5-40 [facility] Comment on above: Performed By: #### V B12, FOL, LIPID, MG, T4, TSH #### [facility] [address] [place] [place] [address] MAGNESIUMon 03-02-2019 Magnesium [Mass/Vol] 1.8 mg/dL Normal 1.8-2.4 [facility] Comment on above: Performed By: #### V B12, FOL, LIPID, MG, T4, TSH #### [facility] [address] [place] [place] [address] MR CONSULTon 03-02-2019 MR CONSULT Patient name: ZAYDA DAVIS MR#: [id number] Location: [place] Acc#: [id number] Admit Date: 03/01/19 : 1965 Age: 53 Sex: F Dictated By: Jerry Logan MD Signing Physician: DICTATED BY: Jerry Logan M.D. SIGNING PHYSICIAN: DATE OF SERVICE: 03/02/2019 CHIEF COMPLAINT: Major depression and weakness with confusion. HISTORY OF PRESENT ILLNESS: This 53-year-old female has past medical history o stroke, diabetes, COPD, hypertension, high cholesterol, chronic renal insufficiency, on Eliquis. Eventually, she was shopping at [employer] with her sister, she was in a wheelchair, she started shaking and falling backward without losing consciousness. She had multiple episodes that lasted less than 1 minute. Eventually, her sister called 911, and she is brought in to the emergency room at [facility]. There she was evaluated, they discussed her case with her neurologist, Dr. Tian, and he confirmed that she had multiple testing in past, including EEG, MRI of brain, eventually never had any positive findings including an echocardiogram, carotid ultrasound in this September. She had possible depression and pseudoseizures. The patient was admitted to [facility] after discussing with Dr. Mcnally. When I am trying to talk to her, she is very much alert and answering questions. She has no acute distress, cough, phlegm, fever, chills, nausea, vomiting, diarrhea, or dysuria. The patient in the ER at [facility] was very anxious and teary, and she stated tat she has a hard time this time of the year because of the anniversary of of multiple family members. The patient herself is otherwise very poor historian. PAST MEDICAL HISTORY: Significant for diabetes, hypertension, COPD, history ofCVA, chronic renal insufficiency, chronic anemia, history of stroke, hyperlipidemia, postmenopausal vaginal bleed. PAST SURGICAL HISTORY: Appendicectomy and stents. PSYCHOSOCIAL HISTORY: She denies smoking, alcohol intake, or substance abuse. FAMILY HISTORY: She is a poor historian. Family history is not obtainable at his time due to her change in mental status and being poor historian. ALLERGIES: No known drug allergies. HOME MEDICATIONS: List of her home medications include gabapentin 100 mg p.o. .i.d., Lancet just for her blood test, melatonin 5 mg daily at bedtime, metoprolol succinate ER 100 oral tablet 1 tablet daily, NovoLog sliding scale, Zofran 4 mg oral tablet as needed, Protonix 20 mg tablet daily, potassium chloride 10 mEq daily, torsemide 100 mg tablet daily, Toujeo Max SoloStar 300 units subcutaneous dose daily. REVIEW OF SYSTEMS: Review of system could not be done due to changed mental sttus and the patient being poor historian. PHYSICAL EXAMINATION: VITAL SIGNS: Temperature 36.3, pulse 58, respirations 18, blood pressure 154/9, oxygen saturation 98% on room air. HEENT: Pupils are equal, round, and reactive to light and accommodation. NECK: Supple. No goiter. No lymphadenopathy. CHEST: Symmetrical. LUNGS: Clinically clear. No rhonchi, rub, or rales. CARDIOVASCULAR: S1, S2 normal. No murmur, rub, or gallop. ABDOMEN: Soft, nontender. No distention. Bowel sounds present. EXTREMITIES: She has no edema, clubbing, or cyanosis. SKIN: Warm and dry. PSYCHOLOGIC: Affect normal. Mood normal. CENTRAL NERVOUS SYSTEM: No deficit. The patients functional status, she is inependent to take care of herself in daily living activities. LABORATORY WORK: I reviewed her laboratories from [facility]. Her ABGs, pH .38, pCO2 47, PO2 39.7. WBC count 6.85, hemoglobin 12.6, hematocrit 37, platelet count 202,000. Urine culture is essentially negative. CT head shows old left infarct. EKG has normal sinus rhythm. Her toxicological screen was negative. ASSESSMENT AND PLAN: 1. The patient has major depression with weakness, though she has been sitting ut no obvious seizures. Admitted to Jail Unit for further psych treatment. 2. Chronic obstructive pulmonary disease. Continue with aerosol treatment. 3. Hypertension. Continue with amlodipine and metoprolol. 4. History of stroke. She is chronically on Eliquis. We will continue with tht. 5. Gastroesophageal reflux disease. Continue with Protonix. 6. History of leg edema. Continue with Demadex. 7. Diabetes. Continue with her insulin glargine and sliding scale as per home. 8. Dyslipidemia. Continue with statin. 9. The patient has been functional to take care of herself independently, thoug now she is reporting weak. Eventually, we will do her physical therapy. CPT code 44638. MONI/LANETTE @ 01:21 @ 02:50 # [id number] ____ Jerry Logan M.D. Electronically Signed Date/Time: 03/03/19 1220 Electronically Signed Date/Time: 03/03/19 1220 Normal [facility] RAPID PLASMA REAGINon 2018 RAPID PLASMA REAGIN NONREACTIVE Normal NONREACTIVE [facility] Comment on above: Performed By: #### R ID #### [address] [place] [address] SED RATEon 03-02-2019 SED RATE 35 mm/hr High 0-30 [facility] Comment on above: Performed By: #### E SR #### [address] [address] THYROID STIM HORMONEon 03-02 THYROID STIM HORMONE 2.370 uIU/mL Normal 0.358-3.74 [facility] Comment on above: Performed By: #### V B12, FOL, LIPID, MG, T4, TSH #### [address] [place] [address] THYROXINE (T4)on 03-02-2019 T4 [Mass/Vol] 7.9 ug/dL Normal 4.8-13.9 [facility] Comment on above: Performed By: #### V B12, FOL, LIPID, MG, T4, TSH #### [address] [address] VITAMIN B 12on 03-02-2019 Cobalamin (Vitamin B12) [Mass/Vol] 383 pg/mL Normal 254-1320 [facility] Comment on above: Performed By: #### V B12, FOL, LIPID, MG, T4, TSH #### [address] [place] [address] Millenium Collectionon 10-12 Millenium Collection [facility] Comment on above: Result Comment: Spec imen sent,Results will be sent to Physician Performed at [facility],[address] [place] [address],[place] [address] Performed By: #### C BCD #### [facility] [address] [place] [address] SPINE LUMBOSACRAL 2 VIEWon 0 10-12-2018 SPINE LUMBOSACRAL 2 VIEW *FINAL Date of Service: 10/12/2018 12:32 Adm #: [id number] Reading Dr:KETAN HICKS Signoff Dr: KETAN HICKS PROCEDURE: SPINE LUMBOSACRAL 2 VIEW - CXR 0032 REASON FOR EXAM: degenerative lumbar disc RESULT: SPINE LUMBOSACRAL 2 VIEW CLINICAL: 52 years Female degenerative lumbar disc TECHNIQUE: Three views of the lumbar spine were performed. FINDINGS: Deviation of the lumbar spine to the left. The SI joints are normal. The disc spaces are preserved.. There are mild degenerative changes. The vertebral bodies are maintained. The vertebral alignment is normal. There is no evidence of calcified aortic aneurysm IMPRESSION: 1. Mild deviation aeration of the lumbar spine to left. 2. Mild degenerative changes [id number] This report has been produced using speech recognition. Original Interpreting Physician: KETAN HICKS M.D. Original Transcribed by/Date: [facility] Oct 12 2018 1:54P Original Electronically Signed by/Date: KETAN HICKS M.D. Oct 12 2018 1:54P Addendum Interpreting Physician: Addendum Transcribed by/Date: NO ADDENDUM Addendum Electronically Signed by/Date: [facility] 07-13 [facility] Comment on above: Result Comment: Spec imen sent,Results will be sent to Physician Performed at [place] [address] Performed By: #### C D #### [place] [address] THERAPY NTon 06-16-2018 THERAPY NT HNO ID: [id number] Author: Aurelia (Boats Renter) Lion Service: Speech/Swallow Author Type: Speech Language Pathologist Type: Therapy (PT/OT/Speech/Resp) Filed: 06/16/2018 1:11 PM Note Text: Outpatient Speech Therapy MBSS Evaluation SERVICE DATE: 06/16/2018 SERVICE TIME: 1110 to 1137 Diet Recommendations: Dysphagia Level 3 (Dysphagia Advanced);Thin liquids Swallowing Precautions Recommendations: Alternate bites and sips; Double swallows; Sit upright 90 degrees for all PO; Small Bite/Sip Results and Recommendations Discussed With: Patient IMPRESSION: Patient is presenting with mild oropharyngeal dysphagia per the Dysphagia Outcome and Severity Scale. Oral phase slowed with decreased control resulting in premature spillover into pharynx prior to swallow to valleculae with solids, pyriform sinuses with thin liquids. Piecemeal swallows with each bolus noted; patient required cues to initiate swallow to fully clear pharynx. Hyolaryngeal elevation and epiglottic retroversion decreased resulting in laryngeal penetration during the swallow with thin liquids, which was transient and did not reach vocal folds, fully clearing laryngeal vestibule post swallow. Patinet appears safe to continue with current mechanical soft with thin liquids with assurance for use of strategies listed above, most importantly use of double swallows to ensure full clearance. ASSESSMENT: Prior to the start of the procedure, a time out was taken to verbally confirm the identification of the patient utilizing but not limited to name and date of and to verify a Modified Barium Swallow is being conducted according to standard operating procedure. Instrumental Swallow Assessment Type: Modified Barium Swallow Study Modified Barium Swallow Views: Lateral position MBS Consistencies Tested: Thin Barium Liquids;Puree With Barium Paste;Solid With Barium Paste Oral Phase: Within Functional Limits Except Bolus Preparation/Mastication: Slow prolonged mastication with complete re-collection necessary Bolus Transport/Lingual Motion: Delayed initiation of tongue motion for A-P movement of the bolus Initiation Of Pharyngeal Swallow: Bolus head at vallecular pit;Bolus head at pit of pyriforms Pharyngeal Phase: Within Functional Limits Except Anterior Hyoid Excursion: Partial anterior movement Epiglottic Movement: Partial inversion Laryngeal Vestibular Closure/Height of the Swallow: Incomplete - narrow column of air/contrast in laryngeal vestibule Penetration: During the swallow Penetration With: Thin Liquids Penetration/Aspiration Scale: 2-Material enters the airway, remains above the vocal folds, and is ejected from the airway Laryngeal penetration seen intermittently with thin liquids. Tolerated Full Session Goals for Plan of Care: Per treating therapist. PLAN: Treatment Frequency (times per week): (per treating therapist) Plan of Care Developed with: Patient TREATMENT INTERVENTIONS: Therapy Diagnosis: Dysphagia, oropharyngeal phase Interventions Provided: Modified Barium Swallow Study (41274) $ Modified Barium Swallow Study (93853) Billed Units: 1 unit Total Treatment Time (minutes): 27 SUBJECTIVE: Current Hospital Course: Chart reviewed; Patient with recent history of CVA per DIRECTOR SAFETY COUNCIL at [facility] with concern for aspiraiton due to recurrent PNA Reason for Speech Therapy Consult: history of CVA with suspected dysphagia Relevant Past Medical History: CVA, dysphagia, aphasia Patient Report: I've been eating fine Home Environment Prior Swallowing Function/Diet Textures: Dysphagia Level 3 (Dysphagia Advanced);Thin liquids Please see discipline specific clinical documentation flowsheet for complete details for this therapy evaluation/treatment. SIGNATURE: [facility] PATIENT NAME: Zayda Davis DATE: June 16, 2018 TIME: 12:25 PM [facility] XR MOD BARIUM SWALLOW W SPEE Anna 06-16-2018 XR MOD BARIUM SWALLOW W SPEECH * * *Final Report* * * DATE OF EXAM: Jun 16 2018 11:39AM EUX 5377 - XR MOD BARIUM SWALLOW W SPEECH / PROCEDURE REASON: dysphagia R13.12 * * * * Physician Interpretation * * * * RESULT: MODIFIED BARIUM SWALLOW: 06/16/2018 CLINICAL DATA: Dysphagia FINDINGS: The examination was conducted with staff of the speech therapy service in attendance. Swallowing was challenged with media of varying viscosities including puree, water, and cracker textures. Oral pharyngeal transfer is within normal limits. There was trace laryngeal penetration with thin liquid. There was no evidence for aspiration with any medium. An additional report will be issued by the speech therapy service. IMPRESSION: NO EVIDENCE OF ASPIRATION. Fluoroscopic Radiation Summary: Plane A, Air Kerma: 15.1 mGy Dose Area Product (DAP): 0.0 mGy*cmS2 Fluoro time: 2:38 min:sec Transcribed Using Voice Recognition Transcribe Date/Time: Jun 16 2018 1:29P Dictated by: ANGELA CASAS MD This examination was interpreted and the report reviewed and electronically signed by: ANGELA CASAS MD on Jun 16 2018 1:30PM EST [id number] Normal [facility] CHEST 2 VIEWon 05-14-2018 CHEST 2 VIEW *FINAL Date of Service: 05/14/2018 06:06 Adm #: [id number] Reading Dr:MIGNON HORTA Signoff Dr: MIGNON HORTA PROCEDURE: CHEST 2 VIEW - WXR 0020 REASON FOR EXAM: Pneumonia RESULT: CHEST PA AND LATERAL VIEWS: HISTORY: Short of breath and coughing. COMPARISON: 05/12/2018 FINDINGS: The cardiac silhouette is normal in appearance. There diffuse bilateral alveolar infiltrates suggesting pulmonary edema. No effusions are identified. IMPRESSION: No change in the diffuse bilateral alveolar infiltrates, most likely secondary to pulmonary edema although infectious etiology is also a consideration. This report has been produced using speech recognition. Original Interpreting Physician: MIGNON HORTA M.D. Original Transcribed by/Date: [facility] May 14 2018 8:35A Original Electronically Signed by/Date: MIGNON HORTA M.D. May 14 2018 8:35A Addendum Interpreting Physician: Addendum Transcribed by/Date: NO ADDENDUM Addendum Electronically Signed by/Date: [facility] POCT GLUCOSEon 05-14-2018 Glucose [Mass/Vol] 202 mg/dL High 65-99 [facility] Comment on above: Performed By: #### C BCD #### [facility] [id number] [place] [address] Glucose [Mass/Vol] 214 mg/dL High 65-99 [facility] Comment on above: Performed By: #### C BCD #### [facility] [address] [place] [address] Glucose [Mass/Vol] 142 mg/dL High 65-99 [facility] Comment on above: Performed By: #### C BCD #### [facility] [id number] [place] [address] Glucose [Mass/Vol] 56 mg/dL Low 65-99 [facility] Comment on above: Performed By: #### C BCD #### [facility] [address] [place] [address] Glucose [Mass/Vol] 71 mg/dL Normal 65-99 [facility] Comment on above: Performed By: #### C BCD #### [facility] [address] [place] [address] Glucose [Mass/Vol] 57 mg/dL Low 65-99 [facility] Comment on above: Performed By: #### C BCD #### [facility] [address] [place] [address] Glucose [Mass/Vol] 87 mg/dL Normal 65-99 [facility] Comment on above: Performed By: #### C BCD #### [facility] [address] [place] [address] RENAL FUNCTION PANELon 05-14 Albumin [Mass/Vol] 2.1 g/dL Low 3.5-5.0 [facility] Comment on above: Performed By: #### C BCD #### [facility] [address] [place] [address] Anion gap [Moles/Vol] 18 mmol/L Normal 0-19 [facility] Comment on above: Performed By: #### C BCD #### [facility] [address] [place] [address] Calcium [Mass/Vol] 7.9 mg/dL Low 8.5-10.4 [facility] Comment on above: Performed By: #### C BCD #### [facility] [address] [place] [address] Chloride [Moles/Vol] 103 mmol/L Normal 97-107 [facility] Comment on above: Performed By: #### C BCD #### [facility] [address] [place] [address] CO2 [Moles/Vol] 17 mmol/L Low 24-31 [facility] Comment on above: Performed By: #### C BCD #### [facility] [address] [place] [address] Creatinine [Mass/Vol] 2.8 mg/dL High 0.4-1.6 [facility] Comment on above: Performed By: #### C BCD #### [facility] [address] [place] [address] Glucose [Mass/Vol] 92 mg/dL Normal 65-99 [facility] Comment on above: Performed By: #### C BCD #### [facility] [address] [place] [address] Phosphate [Mass/Vol] 4.6 mg/dL High 2.5-4.5 [facility] Comment on above: Performed By: #### C BCD #### [facility] [address] [place] [address] Potassium [Moles/Vol] 3.8 mmol/L Normal 3.4-5.1 [facility] Comment on above: Performed By: #### C BCD #### [facility] [address] [place] [address] Sodium [Moles/Vol] 138 mmol/L Normal 133-145 [facility] Comment on above: Performed By: #### C BCD #### [facility] [address] [place] [address] Urea nitrogen [Mass/Vol] 67 mg/dL High 8-25 [facility] Comment on above: Performed By: #### C BCD #### [facility] [place] [address] [place] [address] Urea nitrogen/Creatinine [Mass ratio] High 8-21 [facility] Comment on above: Result Comment: 23.9 Performed at [place] [address] [facility] [place] [address] Performed By: #### C BCD #### [place] [address] [place] [address] BLOOD CULTUREon 05-13-2018 Bacteria identified Cx Nom (Bld) Specimen source XXX: BLOOD Service Cmnt XXX-Imp: NONE Bacteria identified: NO GROWTH 5 DAYS Performed at [place] [address] [place] [address] : FINAL 05/13/2018 [facility] Comment on above: Performed By: #### L ACV #### [facility] [address] [place] [address] POCT GLUCOSEon 05-13-2018 Glucose [Mass/Vol] 84 mg/dL Normal 65-99 [facility] Comment on above: Performed By: #### C BCD #### [facility] [address] [place] [address] Glucose [Mass/Vol] 151 mg/dL High 65-99 [facility] Comment on above: Performed By: #### C BCD #### [facility] [address] [place] [address] Glucose [Mass/Vol] 251 mg/dL High 65-99 [facility] Comment on above: Performed By: #### C BCD #### [facility] [place] [address] [place] [address] Glucose [Mass/Vol] 215 mg/dL High 65-99 [facility] Comment on above: Performed By: #### C BCD #### [place] [address] [place] [address] Glucose [Mass/Vol] 322 mg/dL High 65-99 [facility] Comment on above: Performed By: #### C BCD #### [place] [address] [place] [address] POTASSIUM(K+)on 05-13-2018 Potassium [Moles/Vol] Normal 3.4-5.1 [facility] Comment on above: Result Comment: 4.2 Performed at [address] [place] [address] Performed By: #### C BCD #### [place] [address] [place] [address] RENAL FUNCTION PANELon 05-13 Albumin [Mass/Vol] 2.1 g/dL Low 3.5-5.0 [facility] Comment on above: Performed By: #### C BCD #### [place] [address] [place] [address] Anion gap [Moles/Vol] 15 mmol/L Normal 0-19 [facility] Comment on above: Performed By: #### C BCD #### [place] [address] [place] [address] Calcium [Mass/Vol] 8.2 mg/dL Low 8.5-10.4 [facility] Comment on above: Performed By: #### C BCD #### [facility] [place] [address] [place] [address] Chloride [Moles/Vol] 101 mmol/L Normal 97-107 [facility] Comment on above: Performed By: #### C BCD #### [facility] [place] [address] [place] [address] CO2 [Moles/Vol] 18 mmol/L Low 24-31 [facility] Comment on above: Performed By: #### C BCD #### [facility] [address] [place] [address] Creatinine [Mass/Vol] 2.6 mg/dL High 0.4-1.6 [facility] Comment on above: Performed By: #### C BCD #### [facility] [place] [address] [place] [address] Glucose [Mass/Vol] 269 mg/dL High 65-99 [facility] Comment on above: Performed By: #### C BCD #### [facility] [place] [address] [place] [address] Phosphate [Mass/Vol] 4.9 mg/dL High 2.5-4.5 [facility] Comment on above: Performed By: #### C BCD #### [facility] [place] [address] [place] [address] Potassium [Moles/Vol] SAMPLE HEMOLYZED T O BE RECOLLECTED Normal 3.4-5.1 [facility] Comment on above: Performed By: #### C BCD #### [facility] [place] [address] [place] [address] Sodium [Moles/Vol] 134 mmol/L Normal 133-145 [facility] Comment on above: Performed By: #### C BCD #### [facility] [place] [address] [place] [address] Urea nitrogen [Mass/Vol] 67 mg/dL High 8-25 [facility] Comment on above: Performed By: #### C BCD #### [facility] [place] [address] [place] [address] Urea nitrogen/Creatinine [Mass ratio] High 8-21 [facility] Comment on above: Result Comment: 25.8 Performed at [place] [address] [place] [address] Performed By: #### C BCD #### [facility] [place] [address] [place] [address] BASIC METABOLIC PANELon 04-30 Anion gap [Moles/Vol] 14 mmol/L Normal 0-19 [facility] Comment on above: Performed By: #### C BCD #### [facility] [place] [address] [place] [address] Calcium [Mass/Vol] Low 8.5-10.4 [facility] Comment on above: Result Comment: 7.8 Performed at [place] [address] [place] [address] Performed By: #### C BCD #### [facility] [place] [address] [place] [address] Chloride [Moles/Vol] 102 mmol/L Normal 97-107 [facility] Comment on above: Performed By: #### C BCD #### [facility] [place] [address] [place] [address] CO2 [Moles/Vol] 20 mmol/L Low 24-31 [facility] Comment on above: Performed By: #### C BCD #### [facility] [place] [address] [place] [address] Creatinine [Mass/Vol] 2.8 mg/dL High 0.4-1.6 [facility] Comment on above: Performed By: #### C BCD #### [facility] [place] [address] [place] [address] Glucose [Mass/Vol] 314 mg/dL High 65-99 [facility] Comment on above: Performed By: #### C BCD #### [facility] [place] [address] [place] [address] Potassium [Moles/Vol] 4.6 mmol/L Normal 3.4-5.1 [facility] Comment on above: Performed By: #### C BCD #### [facility] [place] [address] [place] [address] Sodium [Moles/Vol] 136 mmol/L Normal 133-145 [facility] Comment on above: Performed By: #### C BCD #### [facility] [place] [address] [place] [address] Urea nitrogen [Mass/Vol] 60 mg/dL High 8-25 [facility] Comment on above: Performed By: #### C BCD #### [facility] [place] [address] [place] [address] Urea nitrogen/Creatinine [Mass ratio] 21.4 RATIO High 8-21 [facility] Comment on above: Performed By: #### C BCD #### [facility] [place] [address] [place] [address] CBC with Diffon 05-12-2018 AB IMMATURE NEUT 0.17 K/UL High 0.0-0.1 [facility] Comment on above: Performed By: #### C BCD #### [facility] [place] [address] [place] [address] ABS BASO 0.01 K/UL Normal 0.00-0.22 [facility] Comment on above: Performed By: #### C BCD #### [place] [address] [place] [address] ABS EOS 0.00 K/UL Normal 0-0.45 [facility] Comment on above: Performed By: #### C BCD #### [place] [address] [place] [address] ABS NEUTROPHILS 9.22 K/UL High 1.8-7.7 [facility] Comment on above: Performed By: #### C BCD #### [place] [address] [place] [address] Basophils/100 WBC (Bld) 0.10 % Normal 0-1 [facility] Comment on above: Performed By: #### C BCD #### [place] [address] [place] [address] DIFF TYPE AUTO DIFF Normal [facility] Comment on above: Performed By: #### C BCD #### [place] [address] [place] [address] Eosinophils/100 WBC (Bld) 0.00 % Normal 0-3 [facility] Comment on above: Performed By: #### C BCD #### [facility] [place] [address] [place] [address] Lymphocytes (Bld) [#/Vol] 0.41 10*3/uL Low 1.2-3.2 [facility] Comment on above: Performed By: #### C BCD #### [place] [address] [place] [address] Lymphocytes/100 WBC (Bld) 4.10 % Low 20-40 [facility] Comment on above: Performed By: #### C BCD #### [place] [address] [place] [address] Monocytes (Bld) [#/Vol] 0.25 10*3/uL Normal 0-0.8 [facility] Comment on above: Performed By: #### C BCD #### [place] [address] [place] [address] Monocytes/100 WBC (Bld) 2.50 % Normal 0-8 [facility] Comment on above: Performed By: #### C BCD #### [place] [address] [place] [address] Neutrophils/100 WBC (Bld) 91.60 % High 50-70 [facility] Comment on above: Performed By: #### C BCD #### [place] [address] [place] [address] Neutrophils/100 WBC (Bld) 1.70 % High 0.0-1.0 [facility] Comment on above: Performed By: #### C BCD #### [place] [address] [address] [place] [address] Platelets (Bld) [#/Vol] CONSISTENT WITH REPORTED RESULTS [facility] Comment on above: Performed By: #### C BCD #### [place] [address] [address] [place] [place] [address] Poikilocytosis 1+ Normal [facility] Comment on above: Performed By: #### C BCD #### [place] [address] [address] [place] [address] [facility] Comment on above: Performed By: #### C BCD #### [place] [address] [address] [place] [address] RBC morphology finding Nom (Bld) CONSISTENT WITH REPORTED RESULTS [facility] Comment on above: Performed By: #### C BCD #### [place] [address] [place] [address] WBC MORPHOLOGY SMEAR REVIEWED AND F OUND CONSISTENT WITH AUTOMATED DIFFERENTIAL Normal [facility] Comment on above: Performed By: #### C BCD #### [facility] [place] [address] [place] [address] ABS.[address]UT[address]CALCULATED Normal [facility] Comment on above: Result Comment: 12.19 Performed at [place] [address] [facility] [address] Performed By: #### C BCD #### [facility] [place] [address] [place] [address] Erythrocyte distribution width (RBC) [Ratio] 12.8 % Normal 11.7-15.0 [facility] Comment on above: Performed By: #### C BCD #### [address] [place] [address] Hematocrit (Bld) [Volume fraction] 32.5 % Low 36-44 [facility] Comment on above: Performed By: #### C BCD #### [address] [place] [address] Hemoglobin (Bld) [Mass/Vol] 10.5 g/dL Low 12.0-15.0 [facility] Comment on above: Performed By: #### C BCD #### [address] [place] [address] MCH (RBC) [Entitic mass] 28.9 pg Normal 26-34 [facility] Comment on above: Performed By: #### C BCD #### [address] [place] [address] MCHC (RBC) [Mass/Vol] 32.3 % Normal 31-37 [facility] Comment on above: Performed By: #### C BCD #### [facility] [address] [place] [address] MCV (RBC) [Entitic vol] 89.5 fL Normal 80-100 [facility] Comment on above: Performed By: #### C BCD #### [facility] [address] [place] [address] MEAN PLT VOL 13.3 CU High 7.0-12.6 [facility] Comment on above: Performed By: #### C BCD #### [facility] [address] [place] [address] NRBC'S 0 /[address] [facility] Comment on above: Performed By: #### C BCD #### [address] [place] [address] Platelets (Bld) [#/Vol] 200 10*3/uL Normal 150-450 [facility] Comment on above: Performed By: #### C BCD #### [address] [place] [address] RBC (Bld) [#/Vol] 3.63 M/UL Low 4.0-4.9 [facility] Comment on above: Performed By: #### C BCD #### [address] [place] [address] RDW-SD 42.2 FL Normal 37.0-54.0 [facility] Comment on above: Performed By: #### C BCD #### [address] [place] [address] WBC (Bld) [#/Vol] 10.1 10*3/uL Normal 4.5-11.0 [facility] Comment on above: Performed By: #### C BCD #### [address] [place] [address] CHEST PORTABLEon 05-12-2018 CHEST PORTABLE *FINAL Date of Service: 05/12/2018 06:43 Adm #: [id number] Reading Dr:OLAYINKA ANDRADE Signoff Dr: OLAYINKA ANDRADE PROCEDURE: CHEST PORTABLE - WXR 0018 REASON FOR EXAM: Pneumonia RESULT: CHEST PORTABLE: Completion Time 05/12/2018 6:43 AM CLINICAL HISTORY: Follow-up pneumonia COMPARISON: 05/08/2018. TECHNIQUE: AP chest FINDINGS: The depth of inspiration is a little less pronounced when compared with the prior study with worsening bilateral pulmonary infiltrates bilaterally. The cardiac size is stable. IMPRESSION: Interval worsening of the diffuse and bilateral pulmonary infiltrates. This report has been produced using speech recognition. Original Interpreting Physician: OLAYINKA ANDRADE M.D. Original Transcribed by/Date: [facility] May 12 2018 8:47A Original Electronically Signed by/Date: OLAYINKA ANDRADE M.D. May 12 2018 8:47A Addendum Interpreting Physician: Addendum Transcribed by/Date: NO ADDENDUM Addendum Electronically Signed by/Date: Normal [facility] POCT GLUCOSEon 05-12-2018 Glucose [Mass/Vol] 273 mg/dL High 65-99 [facility] Comment on above: Performed By: #### C BCD #### [facility] [address] [place] [address] Glucose [Mass/Vol] 304 mg/dL High 65-99 [facility] Comment on above: Performed By: #### C BCD #### [facility] [address] [place] [address] Glucose [Mass/Vol] 283 mg/dL High 65-99 [facility] Comment on above: Performed By: #### C BCD #### [facility] [address] [place] [address] BASIC METABOLIC PANELon 04-30 Anion gap [Moles/Vol] 15 mmol/L Normal 0-19 [facility] Comment on above: Performed By: #### U ACUL #### [facility] [address] [place] [address] Calcium [Mass/Vol] Low 8.5-10.4 [facility] Comment on above: Result Comment: 7.6 Performed at [address] [address] [facility] [place] [address] Performed By: #### U ACUL #### [facility] [address] [place] [address] Chloride [Moles/Vol] 103 mmol/L Normal 97-107 [facility] Comment on above: Performed By: #### U ACUL #### [facility] [address] [place] [place] [address] CO2 [Moles/Vol] 17 mmol/L Low 24-31 [facility] Comment on above: Performed By: #### U ACUL #### [facility] [address] [place] [address] Creatinine [Mass/Vol] 2.8 mg/dL High 0.4-1.6 [facility] Comment on above: Performed By: #### U ACUL #### [facility] [address] [place] [address] Glucose [Mass/Vol] 282 mg/dL High 65-99 [facility] Comment on above: Performed By: #### U ACUL #### [facility] [id number] [place] [address] Potassium [Moles/Vol] 4.7 mmol/L Normal 3.4-5.1 [facility] Comment on above: Performed By: #### U ACUL #### [facility] [address] [place] [address] Sodium [Moles/Vol] 135 mmol/L Normal 133-145 [facility] Comment on above: Performed By: #### U ACUL #### [facility] [address] [address] [place] [address] Urea nitrogen [Mass/Vol] 51 mg/dL High 8-25 [facility] Comment on above: Performed By: #### U ACUL #### [facility] [address] [address] [place] [address] Urea nitrogen/Creatinine [Mass ratio] 18.2 RATIO Normal 8-21 [facility] Comment on above: Performed By: #### U ACUL #### [facility] [address] [place] [address] CBC with Diffon 05-11-2018 AB IMMATURE NEUT 0.09 K/UL Normal 0.0-0.1 [facility] Comment on above: Performed By: #### U ACUL #### [facility] [address] [place] [address] ABS BASO 0.02 K/UL Normal 0.00-0.22 [facility] Comment on above: Performed By: #### U ACUL #### [facility] [address] [place] [address] ABS EOS 0.00 K/UL Normal 0-0.45 [facility] Comment on above: Performed By: #### U ACUL #### Main Laboratory [address] [place] [address] ABS NEUTROPHILS 12.37 K/UL High 1.8-7.7 [facility] Comment on above: Performed By: #### U ACUL #### [facility] [address] [place] [address] Basophils/100 WBC (Bld) 0.10 % Normal 0-1 [facility] Comment on above: Performed By: #### U ACUL #### [facility] [address] [place] [address] DIFF TYPE AUTO DIFF Normal [facility] Comment on above: Performed By: #### U ACUL #### [facility] [address] [place] [address] Eosinophils/100 WBC (Bld) 0.00 % Normal 0-3 [facility] Comment on above: Performed By: #### U ACUL #### [facility] [address] [place] [address] Granulocytes/100 WBC (Bld) 1+ Normal [facility] Comment on above: Performed By: #### U ACUL #### [facility] [address] [place] [address] Lymphocytes (Bld) [#/Vol] 0.38 10*3/uL Low 1.2-3.2 [facility] Comment on above: Performed By: #### U ACUL #### [facility] [address] [place] [address] Lymphocytes/100 WBC (Bld) 2.80 % Low 20-40 [facility] Comment on above: Performed By: #### U ACUL #### [facility] [address] [place] [address] Monocytes (Bld) [#/Vol] 0.56 10*3/uL Normal 0-0.8 [facility] Comment on above: Performed By: #### U ACUL #### [facility] [address] [place] [address] Monocytes/100 WBC (Bld) 4.20 % Normal 0-8 [facility] Comment on above: Performed By: #### U ACUL #### [facility] [address] [place] [address] Neutrophils/100 WBC (Bld) 92.20 % High 50-70 [facility] Comment on above: Performed By: #### U ACUL #### [facility] [address] [place] [address] Neutrophils/100 WBC (Bld) 0.70 % Normal 0.0-1.0 [facility] Comment on above: Performed By: #### U ACUL #### [address] [place] [address] Normal [facility] Comment on above: Performed By: #### U ACUL #### [address] [place] [address] Platelets (Bld) [#/Vol] CONSISTENT WITH REPORTED RESULTS [facility] Comment on above: Performed By: #### U ACUL #### [address] [address] [facility] [place] [address] Poikilocytosis 1+ [facility] Comment on above: Performed By: #### U ACUL #### [address] [place] [address] Tear Drop Cells Occasional Normal [facility] Comment on above: Performed By: #### U ACUL #### [address] [address] WBC MORPHOLOGY SMEAR REVIEWED AND F OUND CONSISTENT WITH AUTOMATED DIFFERENTIAL [facility] Comment on above: Performed By: #### U ACUL #### [address] [place] [address] ABS.[address]CALCULATED Normal [facility] Comment on above: Result Comment: 12.3 7 Performed at [address] [address] [facility] [place] [address] Performed By: #### U ACUL #### [address] [place] [address] Erythrocyte distribution width (RBC) [Ratio] 13.2 % Normal 11.7-15.0 [facility] Comment on above: Performed By: #### U ACUL #### [address] [place] [address] Hematocrit (Bld) [Volume fraction] 33.4 % Low 36-44 [facility] Comment on above: Performed By: #### U ACUL #### [facility] [address] [place] [address] Hemoglobin (Bld) [Mass/Vol] 10.8 g/dL Low 12.0-15.0 [facility] Comment on above: Performed By: #### U ACUL #### [facility] [address] [place] [address] MCH (RBC) [Entitic mass] 29.5 pg Normal 26-34 [facility] Comment on above: Performed By: #### U ACUL #### [facility] [address] [place] [address] MCHC (RBC) [Mass/Vol] 32.3 % Normal 31-37 [facility] Comment on above: Performed By: #### U ACUL #### [facility] [address] [place] [address] MCV (RBC) [Entitic vol] 91.3 fL Normal 80-100 [facility] Comment on above: Performed By: #### U ACUL #### [facility] [address] [place] [address] MEAN PLT VOL 13.0 CU High 7.0-12.6 [facility] Comment on above: Performed By: #### U ACUL #### [facility] [address] [place] [address] NRBC'S 0 /[address] [facility] Comment on above: Performed By: #### U ACUL #### [facility] [address] [place] [address] Platelets (Bld) [#/Vol] 192 10*3/uL Normal 150-450 [facility] Comment on above: Performed By: #### U ACUL #### [facility] [address] [place] [address] RBC (Bld) [#/Vol] 3.66 M/UL Low 4.0-4.9 [facility] Comment on above: Performed By: #### U ACUL #### [address] [place] [address] RDW-SD 43.8 FL Normal 37.0-54.0 [facility] Comment on above: Performed By: #### U ACUL #### [address] [place] [address] WBC (Bld) [#/Vol] 13.4 10*3/uL High 4.5-11.0 [facility] Comment on above: Performed By: #### U ACUL #### [address] [place] [address] POCT GLUCOSEon 05-11-2018 Glucose [Mass/Vol] 306 mg/dL High 65-99 [facility] Comment on above: Performed By: #### C BCD #### [address] [place] [address] Glucose [Mass/Vol] 342 mg/dL High 65-99 [facility] Comment on above: Performed By: #### C BCD #### [address] [place] [address] Glucose [Mass/Vol] 330 mg/dL High 65-99 [facility] Comment on above: Performed By: #### C BCD #### [address] [place] [address] Glucose [Mass/Vol] 274 mg/dL High 65-99 [facility] Comment on above: Performed By: #### U ACUL #### [address] [place] [address] PTH,INTACT BATTERYon 05-11- 019 PTH,INTACT 73 PG/ML High 15-65 [facility] Comment on above: Performed By: #### C BCD #### [address] [place] [address] Calcium [Mass/Vol] 7.9 mg/dL Low 8.5-10.4 [facility] Comment on above: Performed By: #### C BCD #### [address] [place] [address] Phosphate [Mass/Vol] High 2.5-4.5 [facility] Comment on above: Result Comment: 6.2 Performed at [address] [place] [address] Performed By: #### C BCD #### [address] [place] [address] PTH,INTACT NO RED YELLOW TUBE COLLECTED Normal 15-65 [facility] Comment on above: Performed By: #### U ACUL #### [facility] [address] [address] [place] [address] VANCOMYCIN TROUGHon 05-11-19 19 VANCOMYCIN TROUGH Normal 10-20 [facility] Comment on above: Result Comment: 18 Performed at [address] [place] [address] Performed By: #### C BCD #### [address] [address] ALBUMIN/CREAT RATIO, URINEon 05-10-2018 ALBUMIN/CREAT RATIO High 0-30 [facility] Comment on above: Result Comment: 2980 .6 30 to 300 mg/g indicates an increased risk for diabetic nephropathy. Greater than 300 mg/g is consistent with clinical nephropathy. (Am J Kidney Disease 1995, 25:107) Performed By: #### C BCD #### [address] [address] Creatinine (U) [Mass/Vol] [facility] Comment on above: Result Comment: 36.1 Performed at [address] [place] [address] Performed By: #### C BCD #### [address] [place] [address] MICROALBUMIN High 0-23 [facility] Comment on above: Result Comment: 1076 RECHECKED DILUTED Performed By: #### C BCD #### [address] [address] BLOOD GAS NO CO-OXon 019 %FIO2 [facility] Comment on above: Result Comment: 50 HIGH FLOW 40LPM Performed By: #### U ACUL #### [facility] [address] [address] JACKIE'S TEST Positive Normal [facility] Comment on above: Performed By: #### U ACUL #### [facility] [address] [place] [address] BASE EXCESS [facility] Comment on above: Result Comment: 5.5 NEGATIVE Performed By: #### U ACUL #### [facility] [address] [place] [address] CO2 [Moles/Vol] 21.0 mmol/L Low 23-29 [facility] Comment on above: Performed By: #### U ACUL #### [facility] [address] [place] [address] HCO3 (Bld) [Moles/Vol] 19.8 mmol/L Low 22-28 L [facility] Comment on above: Performed By: #### U ACUL #### [facility] [address] [place] [address] Oxygen (Bld) [Partial pressure] 73 MM HG Low 80-120 [facility] Comment on above: Performed By: #### U ACUL #### [facility] [address] [place] [address] Oxygen saturation in Blood Normal 90-100 [facility] Comment on above: Result Comment: 94.6 Performed at [facility] [address] [place] [address] Performed By: #### U ACUL #### [facility] [address] [place] [address] PCO2 37.4 MM HG Normal 35-45 [facility] Comment on above: Performed By: #### U ACUL #### [facility] [address] [place] [address] pH (Bld) 7.332 UNITS Low 7.350-7.450 [facility] Comment on above: Performed By: #### U ACUL #### [facility] [address] [place] [address] SITE DRAWN RIGHT RADIAL [facility] Comment on above: Performed By: #### U ACUL #### [facility] [address] [place] [address] VENTILATOR 0 [facility] Comment on above: Performed By: #### U ACUL #### [address] [place] [address] LOWER RESP CULTUREon 019 LOWER RESP CULTURE Specimen source XXX: SPUTUM Performed at [address] [address] Service Cmnt XXX-Imp: NONE Performed at [address] [address] Microscopic observation: PURULENT NO ORGANISMS SEEN 2+ WBC Bacteria identified: 1+ NORMAL RESPIRATORY KHOI Performed at [address] [address] : FINAL 05/10/2018 [facility] Comment on above: Performed By: #### L ACV #### [address] [address] POCT GLUCOSEon 05-10-2018 Glucose [Mass/Vol] 215 mg/dL High 65-99 [facility] Comment on above: Performed By: #### U ACUL #### [address] [address] Glucose [Mass/Vol] 197 mg/dL High 65-99 [facility] Comment on above: Performed By: #### U ACUL #### [address] [address] Glucose [Mass/Vol] 136 mg/dL High 65-99 [facility] Comment on above: Performed By: #### U ACUL #### [address] [address] Glucose [Mass/Vol] 68 mg/dL Normal 65-99 [facility] Comment on above: Performed By: #### U ACUL #### [address] [address] Glucose [Mass/Vol] 118 mg/dL High 65-99 [facility] Comment on above: Performed By: #### C BCD #### [address] [address] PTH,INTACT BATTERYon 019 Calcium [Mass/Vol] 7.8 mg/dL Low 8.5-10.4 [facility] Comment on above: Performed By: #### U ACUL #### [facility] [address] [place] [address] Phosphate [Mass/Vol] High 2.5-4.5 [facility] Comment on above: Result Comment: 7.5 Performed at [address] [place] [address] Performed By: #### U ACUL #### [facility] [address] [address] [place] [address] RENAL FUNCTION PANELon 05-10 Albumin [Mass/Vol] 2.2 g/dL Low 3.5-5.0 [facility] Comment on above: Performed By: #### C BCD #### [facility] [address] [address] [place] [address] Anion gap [Moles/Vol] 15 mmol/L Normal 0-19 [facility] Comment on above: Performed By: #### C BCD #### [facility] [address] [address] [place] [address] Calcium [Mass/Vol] 7.9 mg/dL Low 8.5-10.4 [facility] Comment on above: Performed By: #### C BCD #### [facility] [address] [address] [place] [address] Chloride [Moles/Vol] 104 mmol/L Normal 97-107 [facility] Comment on above: Performed By: #### C BCD #### [facility] [address] [address] [place] [address] CO2 [Moles/Vol] 17 mmol/L Low 24-31 [facility] Comment on above: Performed By: #### C BCD #### [facility] [address] [address] [place] [address] Creatinine [Mass/Vol] 3.1 mg/dL High 0.4-1.6 [facility] Comment on above: Performed By: #### C BCD #### [facility] [address] [address] [place] [address] Glucose [Mass/Vol] 113 mg/dL High 65-99 [facility] Comment on above: Performed By: #### C BCD #### [facility] [address] [place] [address] Phosphate [Mass/Vol] 7.7 mg/dL High 2.5-4.5 [facility] Comment on above: Performed By: #### C BCD #### [facility] [address] [address] [place] [address] Potassium [Moles/Vol] 4.6 mmol/L Normal 3.4-5.1 [facility] Comment on above: Performed By: #### C BCD #### [facility] [address] [place] [address] Sodium [Moles/Vol] 136 mmol/L Normal 133-145 [facility] Comment on above: Performed By: #### C BCD #### [facility] [address] [address] [place] [address] Urea nitrogen [Mass/Vol] 44 mg/dL High 8-25 [facility] Comment on above: Performed By: #### C BCD #### [facility] [address] [address] [place] [address] Urea nitrogen/Creatinine [Mass ratio] Normal 8-21 [facility] Comment on above: Result Comment: 14.2 Performed at [address] [address] [place] [address] Performed By: #### C BCD #### [facility] [address] [address] [place] [address] RENALSon 05-10-2018 RENALS *FINAL Date of Service: 05/10/2018 06:52 Adm #: [id number] Reading Dr:MIGNON HORTA Signoff Dr: MIGNON HORTA PROCEDURE: RENALS - [facility] 2547 REASON FOR EXAM: CARYN RESULT: RENALS: 05/10/2018 6:52 AM CLINICAL HISTORY: Acute Renal Failure. COMPARISON: None. TECHNIQUE: Grayscale and color Doppler imaging of the kidneys FINDINGS: The right kidney measures 10.9 x 5.4 x 5.3 cm. The left kidney measures 11.0 x 5.7 x 5.0 cm. No renal stones are identified. The renal cortical thickness and echogenicity is normal. No hydronephrosis is identified. IMPRESSION: Non specific appearance of the kidneys as described. This report has been produced using speech recognition. Original Interpreting Physician: MIGNON HORTA M.D. Original Transcribed by/Date: [facility] May 10 2018 8:26A Original Electronically Signed by/Date: MIGNON HORTA M.D. May 10 2018 8:26A Addendum Interpreting Physician: Addendum Transcribed by/Date: NO ADDENDUM Addendum Electronically Signed by/Date: [facility] URINE EOSINOPHILSon 05-10-19 19 URINE EOSINOPHILS Normal [facility] Comment on above: Result Comment: NONE SEEN Performed at [address] [address] Performed By: #### C BCD #### [facility] [address] [address] VANCOMYCIN TROUGHon 05-10-19 19 VANCOMYCIN TROUGH Normal 01-16 [facility] Comment on above: Result Comment: 14 Performed at [address] [address] Performed By: #### U ACUL #### [facility] [address] [address] ADD ON LAB REQUESTon 019 ADD ON REQUEST Normal [facility] Comment on above: Result Comment: ADD ON OK Performed at [address] [address] Performed By: #### L ACV #### [address] [address] ADD ON TESTS PRCL [facility] Comment on above: Performed By: #### L ACV #### [facility] [address] [address] BLOOD CULTUREon 05-09-2018 Bacteria identified Cx Nom (Bld) Specimen source XXX: BLOOD Service Cmnt XXX-Imp: NONE Bacteria identified: NO GROWTH 5 DAYS Performed at [address] [address] : FINAL 05/09/2018 [facility] Comment on above: Performed By: #### C BCD #### [facility] [address] [address] BLOOD GAS NO CO-OXon 019 %FIO2 [facility] Comment on above: Result Comment: 60 HFNC 40LPM Performed By: #### C BCD #### [facility] [address] [place] [address] JACKIE'S TEST Positive [facility] Comment on above: Performed By: #### C BCD #### [facility] [address] [place] [address] BASE EXCESS [facility] Comment on above: Result Comment: 3.0 NEGATIVE Performed By: #### C BCD #### [facility] [address] [place] [address] CO2 [Moles/Vol] 22.4 mmol/L Low 23-29 [facility] Comment on above: Performed By: #### C BCD #### [facility] [address] [place] [address] HCO3 (Bld) [Moles/Vol] 21.3 mmol/L Low 22-28 L [facility] Comment on above: Performed By: #### C BCD #### [facility] [address] [place] [address] Oxygen (Bld) [Partial pressure] 54 MM HG Low 80-120 [facility] Comment on above: Performed By: #### C BCD #### [facility] [address] [place] [address] Oxygen saturation in Blood Normal 90-100 [facility] Comment on above: Result Comment: 90.2 Performed at [place] [address] [facility] [place] [address] Performed By: #### C BCD #### [facility] [address] [place] [address] PCO2 34.5 MM HG Low 35-45 [facility] Comment on above: Performed By: #### C BCD #### [facility] [address] [place] [address] pH (Bld) 7.399 UNITS Normal 7.350-7.450 [facility] Comment on above: Performed By: #### C BCD #### [facility] [address] [place] [address] SITE DRAWN RIGHT RADIAL Normal [facility] Comment on above: Performed By: #### C BCD #### Main Laboratory [facility] [address] [place] [address] CBC with Diffon 05-09-2018 ABS BAND 0.32 K/UL Normal [facility] Comment on above: Performed By: #### B CUL #### [facility] [address] [place] [address] ABS NEUTROPHILS 14.81 K/UL High 1.8-7.7 [facility] Comment on above: Performed By: #### B CUL #### [facility] [address] [place] [address] ABS.NEUT.MANUAL 15.12 Normal [facility] Comment on above: Performed By: #### B CUL #### [facility] [address] [place] [address] BAND NEUTROPHIL 2.00 % Normal <16 [facility] Comment on above: Performed By: #### B CUL #### [facility] [address] [place] [address] DIFF TYPE MANUAL DIFF Normal [facility] Comment on above: Performed By: #### B CUL #### [facility] [address] [place] [address] Lymphocytes (Bld) [#/Vol] 0.64 10*3/uL Low 1.2-3.2 [facility] Comment on above: Performed By: #### B CUL #### [facility] [address] [place] [address] Lymphocytes/100 WBC (Bld) 4.00 % Low 20-40 [facility] Comment on above: Performed By: #### B CUL #### [facility] [address] [place] [address] Monocytes (Bld) [#/Vol] 0.16 10*3/uL Normal 0-0.8 [facility] Comment on above: Performed By: #### B CUL #### [facility] [address] [place] [address] Monocytes/100 WBC (Bld) 1.00 % Normal 0-8 [facility] Comment on above: Performed By: #### B CUL #### [facility] [address] [place] [address] Neutrophils/100 WBC (Bld) 93.00 % High 50-70 [facility] Comment on above: Performed By: #### B CUL #### [facility] [address] [place] [address] Platelets (Bld) [#/Vol] CONSISTENT WITH REPORTED RESULTS Normal [facility] Comment on above: Performed By: #### B CUL #### [facility] [address] [place] [address] RBC morphology finding Nom (Bld) CONSISTENT WITH REPORTED RESULTS [facility] Comment on above: Performed By: #### B CUL #### [facility] [address] [place] [address] ABS.NEUT.CALCULATED Normal [facility] Comment on above: Result Comment: 14.5 1 Performed at [facility] [address] [facility] [place] [address] Performed By: #### B CUL #### [facility] [address] [place] [address] Erythrocyte distribution width (RBC) [Ratio] 13.3 % Normal 11.7-15.0 [facility] Comment on above: Performed By: #### B CUL #### [facility] [address] [place] [address] Hematocrit (Bld) [Volume fraction] 36.4 % Normal 36-44 [facility] Comment on above: Performed By: #### B CUL #### [facility] [address] [place] [address] Hemoglobin (Bld) [Mass/Vol] 11.1 g/dL Low 12.0-15.0 [facility] Comment on above: Performed By: #### B CUL #### [facility] [address] [place] [address] MCH (RBC) [Entitic mass] 29.1 pg Normal 26-34 [facility] Comment on above: Performed By: #### B CUL #### [facility] [address] [place] [address] MCHC (RBC) [Mass/Vol] 30.5 % Low 31-37 [facility] Comment on above: Performed By: #### B CUL #### [facility] [address] [place] [address] MCV (RBC) [Entitic vol] 95.5 fL Normal 80-100 [facility] Comment on above: Performed By: #### B CUL #### [facility] [address] [place] [address] MEAN PLT VOL 12.4 CU Normal 7.0-12.6 [facility] Comment on above: Performed By: #### B CUL #### [facility] [address] [place] [address] NRBC'S 0 /[address] [facility] Comment on above: Performed By: #### B CUL #### [facility] [address] [place] [address] Platelets (Bld) [#/Vol] 175 10*3/uL Normal 150-450 [facility] Comment on above: Performed By: #### B CUL #### [facility] [address] [place] [address] RBC (Bld) [#/Vol] 3.81 M/UL Low 4.0-4.9 [facility] Comment on above: Performed By: #### B CUL #### [facility] [address] [place] [address] RDW-SD 47.1 FL Normal 37.0-54.0 [facility] Comment on above: Performed By: #### B CUL #### [facility] [address] [place] [address] WBC (Bld) [#/Vol] 15.9 10*3/uL High 4.5-11.0 [facility] Comment on above: Performed By: #### B CUL #### [facility] [address] [place] [address] COMPREHENSIVE METABOLIC PANE Jl 05-09-2018 Albumin [Mass/Vol] 2.0 g/dL Low 3.5-5.0 [facility] Comment on above: Performed By: #### B CUL #### [facility] [address] [place] [address] Albumin/Globulin [Mass ratio] 0.5 {ratio} Low 1.5-3.0 [facility] Comment on above: Performed By: #### B CUL #### [facility] [address] [place] [address] ALP [Catalytic activity/Vol] 67 U/L Normal 35-125 [facility] Comment on above: Performed By: #### B CUL #### [facility] [address] [place] [address] ALT [Catalytic activity/Vol] Normal 5-40 [facility] Comment on above: Result Comment: 14 Performed at [facility] [address] [place] [address] Performed By: #### B CUL #### [facility] [address] [place] [address] Anion gap [Moles/Vol] 15 mmol/L Normal 0-19 [facility] Comment on above: Performed By: #### B CUL #### [facility] [address] [place] [address] AST [Catalytic activity/Vol] 21 U/L Normal 5-40 [facility] Comment on above: Performed By: #### B CUL #### [facility] [address] [place] [address] Bilirubin [Mass/Vol] 0.2 mg/dL Normal 0.1-1.2 [facility] Comment on above: Performed By: #### B CUL #### [facility] [address] [place] [address] Calcium [Mass/Vol] 8.0 mg/dL Low 8.5-10.4 [facility] Comment on above: Performed By: #### B CUL #### [facility] [address] [place] [address] Chloride [Moles/Vol] 104 mmol/L Normal 97-107 [facility] Comment on above: Performed By: #### B CUL #### [facility] [address] [place] [address] CO2 [Moles/Vol] 16 mmol/L Low 24-31 [facility] Comment on above: Performed By: #### B CUL #### [facility] [address] [place] [address] Creatinine [Mass/Vol] 2.6 mg/dL High 0.4-1.6 [facility] Comment on above: Performed By: #### B CUL #### [facility] [address] [place] [address] Globulin (S) [Mass/Vol] 3.7 g/dL Normal 1.9-3.7 [facility] Comment on above: Performed By: #### B CUL #### [facility] [address] [place] [address] Glucose [Mass/Vol] 109 mg/dL High 65-99 [facility] Comment on above: Performed By: #### B CUL #### [facility] [address] [place] [address] Potassium [Moles/Vol] 4.7 mmol/L Normal 3.4-5.1 [facility] Comment on above: Performed By: #### B CUL #### [facility] [address] [place] [address] Protein [Mass/Vol] 5.7 g/dL Low 5.9-7.9 [facility] Comment on above: Performed By: #### B CUL #### [facility] [address] [place] [address] Sodium [Moles/Vol] 135 mmol/L Normal 133-145 [facility] Comment on above: Performed By: #### B CUL #### [facility] [address] [place] [address] Urea nitrogen [Mass/Vol] 36 mg/dL High 8-25 [facility] Comment on above: Performed By: #### B CUL #### [facility] [address] [place] [address] Urea nitrogen/Creatinine [Mass ratio] 13.8 RATIO Normal 8-21 [facility] Comment on above: Performed By: #### B CUL #### [facility] [address] [place] [address] LIPID PANELon 05-09-2018 CHOL HDL RATIO Normal [facility] Comment on above: Result Comment: 4.2 According to the [place] [employer], the goal is to maintain the total cholesterol/HDL ratio at 5-to-1 or lower with an optimum ratio of 3.5-to-1. Performed at [facility] [address] [place] [address] [place] [address] Performed By: #### B CUL #### [facility] [address] [place] [address] Cholesterol [Mass/Vol] 201 mg/dL High 133-200 [facility] Comment on above: Performed By: #### B CUL #### [facility] [address] [place] [address] Cholesterol in HDL [Mass/Vol] Low >50 [facility] Comment on above: Result Comment: 48 National Cholesterol Education Program(NCFP)guidelines: <40 mg/dl:Low HDL-cholesterol(major risk factor for CHD) >60 mg/dl:High HDL-cholesterol(negativerisk factor for CHD) HDL-cholesterol is affected by a number of factors,e.g.,smoking, exercise,hormones,sex and age. Performed By: #### B CUL #### [address] [address] Cholesterol in LDL [Mass/Vol] 126 mg/dL Normal 65-130 [facility] Comment on above: Performed By: #### B CUL #### [address] [address] SERUM CLARITY CLEAR Normal [facility] Comment on above: Performed By: #### B CUL #### [address] [address] TRIGLYCERIDE G.B. 136 MG/DL Normal 40-150 [facility] Comment on above: Performed By: #### B CUL #### [address] [address] PT. PREPARATION FASTING Normal [facility] Comment on above: Performed By: #### B CUL #### [address] [address] SERUM COLOR YELLOW Normal [facility] Comment on above: Performed By: #### B CUL #### [place] [address] [place] [address] Lactic Acid Venouson 019 Lactic Acid Venous High 0.9-1.7 [facility] Comment on above: Result Comment: 3.7 VERIPHY Performed at [address] [place] [address] Performed By: #### B CUL #### [address] [address] POCT GLUCOSEon 05-09-2018 Glucose [Mass/Vol] 95 mg/dL Normal 65-99 [facility] Comment on above: Performed By: #### C BCD #### [facility] [address] [place] [address] Glucose [Mass/Vol] 117 mg/dL High 65-99 [facility] Comment on above: Performed By: #### C BCD #### [facility] [address] [place] [address] Glucose [Mass/Vol] 116 mg/dL High 65-99 [facility] Comment on above: Performed By: #### C BCD #### [facility] [address] [place] [address] Glucose [Mass/Vol] 56 mg/dL Low 65-99 [facility] Comment on above: Performed By: #### C BCD #### [facility] [address] [place] [address] Glucose [Mass/Vol] 85 mg/dL Normal 65-99 [facility] Comment on above: Performed By: #### L ACV #### [facility] [address] [place] [address] Glucose [Mass/Vol] 91 mg/dL Normal 65-99 [facility] Comment on above: Performed By: #### L ACV #### [facility] [address] [place] [address] Glucose [Mass/Vol] 53 mg/dL Low 65-99 [facility] Comment on above: Performed By: #### L ACV #### [facility] [address] [place] [address] Glucose [Mass/Vol] 66 mg/dL Normal 65-99 [facility] Comment on above: Performed By: #### L ACV #### [facility] [address] [place] [address] Glucose [Mass/Vol] 70 mg/dL Normal 65-99 [facility] Comment on above: Performed By: #### B CUL #### [facility] [address] [place] [address] Glucose [Mass/Vol] 69 mg/dL Normal 65-99 [facility] Comment on above: Performed By: #### B CUL #### [place] [address] [place] [address] Glucose [Mass/Vol] 70 mg/dL Normal 65-99 [facility] Comment on above: Performed By: #### B CUL #### [address] [address] Procalcitoninon 05-09-2018 Procalcitonin High <0.09 [facility] Comment on above: Result Comment: 4.93 RESULT CHECKED AND PHONED CRITICAL VALUE-PHYSICIAN MUST BE NOTIFIED VERBAL RESULT VERIFICATION RECEIVED LARA GUTIERREZ For patients admitted to ICU, procalcitonin levels > 2.00 ng/ml represent an elevated risk of severe sepsis. Levels < 0.50 ng/ml represent a low risk of severe sepsis and/or septic shock, but do not exclude localized infection or systemic infection in early stages. Levels between 0.5 and 2.00 ng/ml may represent sepsis but can also be seen in a variety of non-infectious conditions. For non-ICU patients, procalcitonin levels < 0.25 ng/ml indicate that bacterial respiratory infection with typical organisms is unlikely, but other bacterial infection is possible. Interpret procalcitonin levels with caution in patients in the early post-operative period and patients with solid malignancy (can cause elevation not related to bacterial infection) and in immunosuppressed patients (may be falsely low in patients with bacterial infection). Performed at [address] [address] Performed By: #### L ACV #### Main Laboratory [address] [address] ADD ON LAB REQUESTon 019 ADD ON REQUEST [facility] Comment on above: Result Comment: ADDE D OK Performed at [address] [address] Performed By: #### B CUL #### [address] [address] ADD ON TESTS PBNP Normal [facility] Comment on above: Performed By: #### B CUL #### [address] [address] BASIC METABOLIC PANELon Glucose [Mass/Vol] High 65-99 [facility] Comment on above: Result Comment: 654 RESULT CHECKED VERIPHY Performed By: #### B MP ####[facility] LaboratoryL[facility] Ltgo[address] [place] [address] Anion gap [Moles/Vol] 18 mmol/L Normal 0-19 [facility] Comment on above: Performed By: #### B MP ####Main LaboratoryL[facility] Snlx[address] [place] [address] Calcium [Mass/Vol] Low 8.5-10.4 [facility] Comment on above: Result Comment: 8.1 Performed at [facility] [address] [place] [address] Performed By: #### B MP ####Main LaboratoryL[facility] Cgis[address] [place] [address] Chloride [Moles/Vol] 100 mmol/L Normal 97-107 [facility] Comment on above: Performed By: #### B MP ####Main LaboratoryL[facility] Xmst[address] [place] [address] CO2 [Moles/Vol] 16 mmol/L Low 24-31 [facility] Comment on above: Performed By: #### B MP ####[facility] LaboratoryL[facility] Aamc[address] [place] [address] Creatinine [Mass/Vol] 2.5 mg/dL High 0.4-1.6 [facility] Comment on above: Performed By: #### B MP ####[facility] LaboratoryL[facility] Ytdl[address] [place] [address] Potassium [Moles/Vol] 4.6 mmol/L Normal 3.4-5.1 [facility] Comment on above: Performed By: #### B MP ####[facility] LaboratoryL[facility] Aecs[address] [place] [address] Sodium [Moles/Vol] 134 mmol/L Normal 133-145 [facility] Comment on above: Performed By: #### B MP ####[facility] LaboratoryL[facility] Yaqd[address] [place] [address] Urea nitrogen [Mass/Vol] 33 mg/dL High 8-25 [facility] Comment on above: Performed By: #### B MP ####[facility] LaboratoryL[facility] Hfmu[address]21 [place] [address] Urea nitrogen/Creatinine [Mass ratio] 13.2 RATIO Normal 8-21 [facility] Comment on above: Performed By: #### B MP ####Main LaboratoryL[facility] Fguv[address] [place] [address] Glucose [Mass/Vol] High 65-99 [facility] Comment on above: Result Comment: 513 RESULT CHECKED VERIPHY Performed By: #### B MP ####[facility] LaboratoryL[facility] Zubt[address] [place] [address] Anion gap [Moles/Vol] 16 mmol/L Normal 0-19 [facility] Comment on above: Performed By: #### B MP ####[facility] LaboratoryL[facility] Fdul[address] [place] [address] Chloride [Moles/Vol] 100 mmol/L Normal 97-107 [facility] Comment on above: Performed By: #### B MP ####[facility] LaboratoryL[facility] Uvpm[address] [place] [address] CO2 [Moles/Vol] 19 mmol/L Low 24-31 [facility] Comment on above: Performed By: #### B MP ####[facility] LaboratoryL[facility] [address] [place] [address] Potassium [Moles/Vol] 4.6 mmol/L Normal 3.4-5.1 [facility] Comment on above: Performed By: #### B MP ####Main LaboratoryL[facility] Jfsb[address] [place] [address] Sodium [Moles/Vol] 135 mmol/L Normal 133-145 [facility] Comment on above: Performed By: #### B MP ####[facility] LaboratoryL[facility] Rahl[address] [place] [address] Calcium [Mass/Vol] 8.5 mg/dL Normal 8.5-10.4 [facility] Comment on above: Performed By: #### B MP ####Main LaboratoryL[facility] Yetu[address] [place] [address] Creatinine [Mass/Vol] 2.1 mg/dL High 0.4-1.6 [facility] Comment on above: Performed By: #### B MP ####[address] [address] GFR/1.73 sq M.predicted MDRD (S/P/Bld) [Vol rate/Area] Normal [facility] Comment on above: Result Comment: 26 GFR ml/min/1.73m2 Stage ----- 90 1 60-89 2 30-59 3 15-29 4 <15 5 For -Americans, multiply EGFR result by 1.210 Calculation not validated for patients under 18 years of age. Performed at [address] [address] Performed By: #### B MP ####[address] [address] Urea nitrogen [Mass/Vol] 28 mg/dL High 8- [facility] Comment on above: Performed By: #### B MP ####[address] [address] Urea nitrogen/Creatinine [Mass ratio] 13.3 RATIO Normal 8- [facility] Comment on above: Performed By: #### B MP ####[address] [address] BETA-HYDROXYBUTYRATEon 05-08 BETA HYDRO RESULT Normal 0.1-0.3 [facility] Comment on above: Result Comment: 0.3 Values exceeding 0.27 mmol/L indicate ketosis Performed at [address] [place] [address] Performed By: #### B HB ####[address] [address] BILIRUBIN,TOTALon 05-08-2018 Bilirubin [Mass/Vol] Normal 0.1-1.2 [facility] Comment on above: Result Comment: 0.4 Performed at [address] [place] [address] Performed By: #### T MARCOS ####[address] [address] BLOOD GAS NO CO-Maryannn 019 %FIO2 [facility] Comment on above: Result Comment: NASA L CANNULA 4L CORRECTED ON 05/08 AT 1544: PREVIOUSLY REPORTED 50 PS5 PEEP5 50% Performed By: #### A BG ####[place] [address] [place] [address] BASE EXCESS [facility] Comment on above: Result Comment: 8.3 NEGATIVE CORRECTED ON 05/08 AT 1544: PREVIOUSLY REPORTED 0.6 NEGATIVE Performed By: #### A BG ####[place] [address] [place] [address] CO2 [Moles/Vol] Low 23-29 [facility] Comment on above: Result Comment: 18.9 CORRECTED ON 05/08 AT 1544: PREVIOUSLY REPORTED 26.0 Performed By: #### A BG ####[place] [address] [place] [address] CPAP 0 CM.H20 [facility] Comment on above: Performed By: #### A BG ####[place] [address] [place] [address] HCO3 (Bld) [Moles/Vol] Low 22-28 [facility] Comment on above: Result Comment: 17.8 CORRECTED ON 05/08 AT 1544: PREVIOUSLY REPORTED 24.7 Performed By: #### A BG ####[place] [address] [facility] [address] Oxygen (Bld) [Partial pressure] Low 80-120 [facility] Comment on above: Result Comment: 78 CORRECTED ON 05/08 AT 1544: PREVIOUSLY REPORTED 106 Performed By: #### A BG ####[place] [address] [place] [place] [address] Oxygen saturation in Blood Normal 90-100 [facility] Comment on above: Result Comment: 95.7 Performed at [facility] [address] [address] CORRECTED ON 05/08 AT 1544: PREVIOUSLY REPORTED 98.4 Performed By: #### A BG ####[place] [address] [place] [address] PCO2 Normal 35-45 [facility] Comment on above: Result Comment: 37.7 CORRECTED ON 05/08 AT 1544: PREVIOUSLY REPORTED 42.4 Performed By: #### A BG ####[facility] Hfs[address] [place] [address] PEEP 0 CM.H20 [facility] Comment on above: Performed By: #### A BG ####[facility] [place] [address] [place] [address] pH (Bld) Low 7.350-7.450 [facility] Comment on above: Result Comment: 7.28 2 CORRECTED ON 05/08 AT 1544: PREVIOUSLY REPORTED 7.375 Performed By: #### A BG ####[place] [address] [place] [address] Respiratory rate Normal [facility] Comment on above: Result Comment: 0 CORRECTED ON 05/08 AT 1544: PREVIOUSLY REPORTED 23 Performed By: #### A BG ####[place] [address] [place] [address] TIDAL VOLUME [facility] Comment on above: Result Comment: 0 CORRECTED ON 05/08 AT 1544: PREVIOUSLY REPORTED 327 Performed By: #### A BG ####[facility] [place] [address] [address] [place] [address] VENTILATOR 0 [facility] Comment on above: Performed By: #### A BG ####[place] [address] [address] [place] [address] JACKIE'S TEST Positive [facility] Comment on above: Performed By: #### A BG ####[place] [address] [address] [place] [address] SITE DRAWN RIGHT RADIAL [facility] Comment on above: Performed By: #### A BG ####[facility] Qyub[address] [place] [address] CBC with Diffon 05-08-2018 AB IMMATURE NEUT 0.12 K/UL High 0.0-0.1 [facility] Comment on above: Performed By: #### C BCD ####[facility] Uadx[address] [place] [address] ABS BASO 0.03 K/UL Normal 0.00-0.22 [facility] Comment on above: Performed By: #### C BCD ####[facility] LaboratoryLake Ukez[address] [place] [address] ABS EOS 0.01 K/UL Normal 0-0.45 [facility] Comment on above: Performed By: #### C BCD ####[facility] LaboratoryLake Ojxy[address]34 [place] [address] ABS NEUTROPHILS 12.62 K/UL High 1.8-7.7 [facility] Comment on above: Performed By: #### C BCD ####[facility] LaboratoryLake Unns[address] [place] [address] Basophils/100 WBC (Bld) 0.20 % Normal 0-1 [facility] Comment on above: Performed By: #### C BCD ####[facility] LaboratoryOrke Vefq[address] [place] [address] DIFF TYPE AUTO DIFF Normal [facility] Comment on above: Performed By: #### C BCD ####[facility] LaboratoryLake Yydx[address] [place] [address] Eosinophils/100 WBC (Bld) 0.10 % Normal 0-3 [facility] Comment on above: Performed By: #### C BCD ####[facility] LaboratoryLake Vgke[address]056 [place] [address] Lymphocytes (Bld) [#/Vol] 0.28 10*3/uL Low 1.2-3.2 [facility] Comment on above: Performed By: #### C BCD ####[facility] LaboratoryLake Ywpz8[address] [place] [address] Lymphocytes/100 WBC (Bld) 2.10 % Low 20-40 [facility] Comment on above: Performed By: #### C BCD ####[facility] LaboratoryLake Kukf[address]756 [place] [address] Monocytes (Bld) [#/Vol] 0.29 10*3/uL Normal 0-0.8 [facility] Comment on above: Performed By: #### C BCD ####[facility] LaboratoryLake Hifj[address] [place] [address] Monocytes/100 WBC (Bld) 2.20 % Normal 0-8 [facility] Comment on above: Performed By: #### C BCD ####[facility] LaboratoryLake Ybwj[address] [place] [address] Neutrophils/100 WBC (Bld) 0.90 % Normal 0.0-1.0 [facility] Comment on above: Performed By: #### C BCD ####[facility] LaboratoryOrke Rgoc[address]211 [place] [address] Neutrophils/100 WBC (Bld) 94.50 % High 50-70 [facility] Comment on above: Performed By: #### C BCD ####[facility] LaboratoryOrke Psdc[address] [place] [address] Platelets (Bld) [#/Vol] CONSISTENT WITH REPORTED RESULTS Normal [facility] Comment on above: Performed By: #### C BCD ####[facility] LaboratoryLisa Ville [id number] [place] [address] RBC morphology finding Nom (Bld) CONSISTENT WITH REPORTED RESULTS Normal [facility] Comment on above: Performed By: #### C BCD ####[facility] LaboratoryOrke Dcad[address] [place] [address] WBC MORPHOLOGY SMEAR REVIEWED AND F OUND CONSISTENT WITH AUTOMATED DIFFERENTIAL Normal [facility] Comment on above: Performed By: #### C BCD ####[facility] LaboratoryOrke Ajoj[address]19 [place] [address] ABS.NEUT.CALCULATED Normal [facility] Comment on above: Result Comment: 12.6 2 Performed at [facility] [address] [place] [address] Performed By: #### C BCD ####[facility] LaboratoryLake Kbdw[address] [place] [address] Erythrocyte distribution width (RBC) [Ratio] 13.2 % Normal 11.7-15.0 [facility] Comment on above: Performed By: #### C BCD ####[facility] LaboratoryLake Fhtf[address] [place] [address] Hematocrit (Bld) [Volume fraction] 35.9 % Low 36-44 [facility] Comment on above: Performed By: #### C BCD ####[facility] LaboratoryLake Cwlg[address] [place] [address] Hemoglobin (Bld) [Mass/Vol] 11.5 g/dL Low 12.0-15.0 [facility] Comment on above: Performed By: #### C BCD ####[facility] LaboratoryLake Duwd22479 [place] [address] MCH (RBC) [Entitic mass] 28.9 pg Normal 26-34 [facility] Comment on above: Performed By: #### C BCD ####[facility] LaboratoryLake Zxoe[address] [place] [address] MCHC (RBC) [Mass/Vol] 32.0 % Normal 31-37 [facility] Comment on above: Performed By: #### C BCD ####[facility] LaboratoryLake Fsmk[address] [place] [address] MCV (RBC) [Entitic vol] 90.2 fL Normal 80-100 [facility] Comment on above: Performed By: #### C BCD ####[facility] LaboratoryLake Gryp[address] [place] [address] MEAN PLT VOL 12.9 CU High 7.0-12.6 [facility] Comment on above: Performed By: #### C BCD ####[facility] LaboratoryLake Qczu[address]30 [place] [address] NRBC'S 0 /[address] [facility] Comment on above: Performed By: #### C BCD ####[facility] LaboratoryLake Iczw[address]30 [place] [address] Platelets (Bld) [#/Vol] 187 10*3/uL Normal 150-450 [facility] Comment on above: Performed By: #### C BCD ####[facility] LaboratoryLake Orae[address] [place] [address] RBC (Bld) [#/Vol] 3.98 M/UL Low 4.0-4.9 [facility] Comment on above: Performed By: #### C BCD ####[facility] LaboratoryLake Qqvc[address]267 [place] [address] RDW-SD 43.8 FL Normal 37.0-54.0 [facility] Comment on above: Performed By: #### C BCD ####[place] [address] [address] [place] [address] WBC (Bld) [#/Vol] 13.4 10*3/uL High 4.5-11.0 [facility] Comment on above: Performed By: #### C BCD ####[place] [address] [address] [place] [address] AB IMMATURE NEUT 0.18 K/UL High 0.0-0.1 [facility] Comment on above: Performed By: #### C BCD ####[place] [address] [address] [place] [address] ABS BASO 0.05 K/UL Normal 0.00-0.22 [facility] Comment on above: Performed By: #### C BCD ####[place] [address] [address] [place] [address] ABS EOS 0.19 K/UL Normal 0-0.45 [facility] Comment on above: Performed By: #### C BCD ####[place] [address] [address] [place] [address] ABS NEUTROPHILS 14.02 K/UL High 1.8-7.7 [facility] Comment on above: Performed By: #### C BCD ####[place] [address] [address] [place] [address] ABS.NEUT.CALCULATED Normal [facility] Comment on above: Result Comment: 14.0 2 Performed at [facility] [address] [place] [address] Performed By: #### C BCD ####[place] [address] [address] [place] [address] Basophils/100 WBC (Bld) 0.30 % Normal 0-1 [facility] Comment on above: Performed By: #### C BCD ####[place] [address] [address] [place] [address] DIFF TYPE AUTO DIFF Normal [facility] Comment on above: Performed By: #### C BCD ####[facility] Hylx[address] [place] [address] Eosinophils/100 WBC (Bld) 1.20 % Normal 0-3 [facility] Comment on above: Performed By: #### C BCD ####[facility] Uahj[address] [place] [address] Erythrocyte distribution width (RBC) [Ratio] 13.5 % Normal 11.7-15.0 [facility] Comment on above: Performed By: #### C BCD ####[facility] Yqcr97825 [place] [address] Hematocrit (Bld) [Volume fraction] 40.5 % Normal 36-44 [facility] Comment on above: Performed By: #### C BCD ####[facility] Jzmn[address]329 [place] [address] Hemoglobin (Bld) [Mass/Vol] 12.9 g/dL Normal 12.0-15.0 [facility] Comment on above: Performed By: #### C BCD ####[place] [address] [place] [address] Lymphocytes (Bld) [#/Vol] 0.93 10*3/uL Low 1.2-3.2 [facility] Comment on above: Performed By: #### C BCD ####[facility] Rbwx[address] [place] [address] Lymphocytes/100 WBC (Bld) 5.70 % Low 20-40 [facility] Comment on above: Performed By: #### C BCD ####[facility] [place] [address] MCH (RBC) [Entitic mass] 28.4 pg Normal 26-34 [facility] Comment on above: Performed By: #### C BCD ####[facility] LaboratoryLake Uhlm[address] [place] [address] MCHC (RBC) [Mass/Vol] 31.9 % Normal 31-37 [facility] Comment on above: Performed By: #### C BCD ####[facility] LaboratoryOrinna Yiln[address]368 [place] [address] MCV (RBC) [Entitic vol] 89.2 fL Normal 80-100 [facility] Comment on above: Performed By: #### C BCD ####[facility] LaboratorySalbador Poe[address] [address] MEAN PLT VOL 12.1 CU Normal 7.0-12.6 [facility] Comment on above: Performed By: #### C BCD ####[facility] LaboratoryLainna Acvr[address] [place] [address] Monocytes (Bld) [#/Vol] 0.94 10*3/uL High 0-0.8 [facility] Comment on above: Performed By: #### C BCD ####[facility] LaboratoryLainna PoeRrdq[address]474 [place] [address] Monocytes/100 WBC (Bld) 5.80 % Normal 0-8 [facility] Comment on above: Performed By: #### C BCD ####[facility] LaboratoryLainna Qqlm[address]85 [place] [address] Neutrophils/100 WBC (Bld) 1.10 % High 0.0-1.0 [facility] Comment on above: Performed By: #### C BCD ####[facility] LaboratoryLainna PoeTdpw[address] [place] [address] Neutrophils/100 WBC (Bld) 85.90 % High 50-70 [facility] Comment on above: Performed By: #### C BCD ####[facility] LaboratoryLainna Gdvp[address]276 [place] [address] NRBC'S 0 /[address] [facility] Comment on above: Performed By: #### C BCD ####[facility] LaboratoryLainna Kyov[address] [place] [address] Platelets (Bld) [#/Vol] 222 10*3/uL Normal 150-450 [facility] Comment on above: Performed By: #### C BCD ####[facility] LaboratoryLake Tzoz[address]49 [place] [address] RBC (Bld) [#/Vol] 4.54 M/UL Normal 4.0-4.9 [facility] Comment on above: Performed By: #### C BCD ####[facility]36[place] [address] RDW-SD 43.8 FL Normal 37.0-54.0 [facility] Comment on above: Performed By: #### C BCD ####[facility] Aoaz[address]114[place]h [place] [address] WBC (Bld) [#/Vol] 16.3 10*3/uL High 4.5-11.0 [facility] Comment on above: Performed By: #### C BCD ####[facility] LockOrinna Hxho[address] [place] [address] CHEST PORTABLEon 05-08-2018 CHEST PORTABLE *FINAL Date of Service: 05/08/2018 07:19 Adm #: [id number] Reading Dr:MALACHI DEAN Signoff Dr: MALACHI DEAN PROCEDURE: CHEST PORTABLE - WXR 0018 REASON FOR EXAM: dyspnea, tachypnea RESULT: Clinical Data: Dyspnea, tachypnea. Number of films: AP erect view. Comparison study: None. The study is limited due to rotation and respiratory motion. The cardiac silhouette is indeterminate due to the technique. Bilateral interstitial and mild alveolar perihilar infiltrates are present. There are small effusions. No pneumothorax is seen. The osseous structures are unremarkable. Impression: Bilateral infiltrates and small pleural effusions, most likely due to pulmonary edema/congestive heart failure. This report has been produced using speech recognition. Original Interpreting Physician: MALACHI DEAN M.D. Original Transcribed by/Date: [facility] May 08 2018 8:02A Original Electronically Signed by/Date: MALACHI DEAN M.D. May 08 2018 8:02A Addendum Interpreting Physician: Addendum Transcribed by/Date: NO ADDENDUM Addendum Electronically Signed by/Date: Normal [facility] CKMB Grant 05-08-2018 CK.MB [Mass/Vol] 3.9 ng/mL Normal 0.0-5.0 [facility] Comment on above: Performed By: #### B CUL #### [facility] [address] [place] [address] CKMB % INDEX Normal 0-3.5 [facility] Comment on above: Result Comment: 2.1 Performed at [place] [address] [place] [address] Performed By: #### B CUL #### [place] [address] [place] [address] CK.MB [Mass/Vol] 3.3 ng/mL Normal 0.0-5.0 [facility] Comment on above: Performed By: #### B CUL #### [facility] [address] [place] [address] CKMB % INDEX Normal 0-3.5 [facility] Comment on above: Result Comment: 2.0 Performed at [place] [address] [place] [address] Performed By: #### B CUL #### [place] [address] [place] [address] CREATINE KINASEon 05-08-2018 CK [Catalytic activity/Vol] Normal 24-195 [facility] Comment on above: Result Comment: 185 Performed at [place] [address] [place] [address] Performed By: #### B CUL #### [place] [address] [place] [address] CK [Catalytic activity/Vol] Normal 24-195 [facility] Comment on above: Result Comment: 161 Performed at [place] [address] [place] [address] Performed By: #### B CUL #### [place] [address] [place] [address] HEMOGLOBIN A1con 05-08-2018 HbA1c (Bld) [Mass fraction] High 4.0-6.0 [facility] Comment on above: Result Comment: 9.5 Hemoglobin A1C levels are related to mean blood glucose during the preceding 2-3 months. The relationship table below may be used as a general guide. Each 1% increase in HGB A1C is a reflection of an increase in mean glucose of approximately 30 mg/dl. Reference: Diabetes Care, volume 29, supplement 1 2005 HGB A1C ................. Approx. Mean Glucose 6% ............................... 120 mg/dl 7% ............................... 150 mg/dl 8% ............................... 180 mg/dl 9% ............................... 210 mg/dl 10% ............................... 240 mg/dl Performed at [address] [place] [address] Performed By: #### B CUL #### [address] [address] INFLUENZA RAPID, FIAon 05-08 FLU A by [facility] Comment on above: Result Comment: POSI TIVE VERIPHY Performed By: #### R FLUAB ####[address] [address] FLU B by [facility] Comment on above: Result Comment: NEGA TIVE Performed at [address] [address] Performed By: #### R FLUAB ####[address] [address] Lactic Acid Venouson 019 Lactic Acid Venous High 0.9-1.7 [facility] Comment on above: Result Comment: 2.9 VERIPHY Performed at [address] [place] [address] Performed By: #### B CUL #### [address] [place] [address] Lactic Acid Venous High 0.9-1.7 [facility] Comment on above: Result Comment: 4.0 VERIPHY Performed at [address] [place] [address] Performed By: #### B CUL #### [place] [address] [address] [place] [address] Lactic Acid Venous High 0.9-1.7 [facility] Comment on above: Result Comment: 3.3 VERIPHY Performed at [address] [place] [address] Performed By: #### L ACV ####Main LaboratoryKimberly [place] [address] Judith [place] [address] POCT GLUCOSEon 05-08-2018 Glucose [Mass/Vol] 322 mg/dL High [address] [place] [address] Comment on above: Performed By: #### B CUL #### [place] [address] [place] [address] Glucose [Mass/Vol] 475 mg/dL [address] Comment on above: Performed By: #### B CUL #### [place] [address] [place] [address] Glucose [Mass/Vol] High [address] [place] [address] Comment on above: Result Comment: 561 RESULT ABOVE 500 MG/DL,SEND TO LAB FOR REPEAT TESTING Performed By: #### B CUL #### [place] [address] [place] [address] Glucose [Mass/Vol] [address] Comment on above: Result Comment: 578 RESULT ABOVE 500 MG/DL,SEND TO LAB FOR REPEAT TESTING Performed By: #### P CGL ####[place] [address] [place] [address] Glucose [Mass/Vol] RESULT ABOVE 600 MG/DL,SEND TO LAB FOR REPEAT TESTING Normal [address] [place] [address] Comment on above: Performed By: #### P CGL ####[place] [address] [place] [address] Glucose [Mass/Vol] High [address] [place] [address] System Comment on above: Result Comment: 579 RESULT ABOVE 500 MG/DL,SEND TO LAB FOR REPEAT TESTING Performed By: #### P CGL ####[place] [address] [place] [address] PRO-BNPon 05-08-2018 Natriuretic peptide B (Bld) [Mass/Vol] High 0-192 [facility] Comment on above: Result Comment: 1416 5 Reference ranges are based on clinical submission data. These ranges represent the 95th percentile of normal cut-off points. As NT pro-BNP values approach 1000 pg/ml, clinical symptoms are more likely associated with CHF. Performed at [address] [place] [address] Performed By: #### B CUL #### [place] [address] [place] [address] PT AND PTTon 05-08-2018 ANTICOAGULANT INFORMATION NOT REPO RTED TO LABORATORY [facility] Comment on above: Performed By: #### P PB ####[place] [address] [address] [place] [address] aPTT Coag (Bld) [Time] Normal 22.0-32.5 [facility] Comment on above: Result Comment: 25.9 Performed at [place] [address] [facility] [place] [address] Performed By: #### P PB ####[place] [address] [address] [place] [address] INR Coag (PPP) [Relative time] Normal 0.86-1.16 [facility] Comment on above: Result Comment: 1.0 INR Theraputic Range: 2.0-3.5 Performed By: #### P PB ####[place] [address] [address] [place] [address] PT Coag (PPP) [Time] 10.9 s Normal 9.3-12.7 [facility] Comment on above: Performed By: #### P PB ####[place] [address] [address] [place] [address] UA WITH MICROon 05-08-2018 BACT Negative [facility] Comment on above: Performed By: #### B CUL #### [place] [address] [place] [address] MICROSCOPIC AUTOMATIC MICROSCOPI C URINES [facility] Comment on above: Performed By: #### B CUL #### [place] [address] [place] [address] RBC 554 /HPF High 0-3 [facility] Comment on above: Performed By: #### B CUL #### [facility] [address] [place] [address] URINE HYALINE CAST 6 /LPF Normal [facility] Comment on above: Performed By: #### B CUL #### [facility] [address] [place] [address] URINE SQUAMOUS EPI FEW Normal [facility] Comment on above: Performed By: #### B CUL #### [facility] [address] [place] [address] WBC 4 /HPF High 0-3 [facility] Comment on above: Performed By: #### B CUL #### [facility] [address] [place] [address] BILI Negative Normal NEG [facility] Comment on above: Performed By: #### B CUL #### [facility] [address] [place] [address] [facility] Comment on above: Result Comment: LARG E Performed at [facility] [address] [place] [address] Performed By: #### B CUL #### [facility] [address] [place] [address] Clarity (U) CLEAR Normal [facility] Comment on above: Performed By: #### B CUL #### [facility] [address] [place] [address] Color (U) LAURA Normal [facility] Comment on above: Performed By: #### B CUL #### [facility] [address] [place] [address] GLUC >=1000 Abnormal NEG [facility] Comment on above: Performed By: #### B CUL #### [facility] [address] [place] [address] KET Negative Normal NEG [facility] Comment on above: Performed By: #### B CUL #### [facility] [address] [place] [address] LEUK Negative Normal NEG [facility] Comment on above: Performed By: #### B CUL #### [facility] [address] [place] [address] NIT Negative Normal NEG [facility] Comment on above: Performed By: #### B CUL #### [facility] [address] [place] [address] pH (U) 6.0 [pH] Normal 4.6-8.0 [facility] Comment on above: Performed By: #### B CUL #### [facility] [address] [place] [address] PROT 300 mg/dL Abnormal NEG [facility] Comment on above: Performed By: #### B CUL #### [place] [address] [place] [address] SP GRAV,URINE 1.017 Normal 1.005-1.030 [facility] Comment on above: Performed By: #### B CUL #### [place] [address] [place] [address] URO NORMAL Normal 0-1.0 [facility] Comment on above: Performed By: #### B CUL #### [place] [address] [place] [address] BLOOD CULTUREon 05-07-2018 Bacteria identified Cx Nom (Bld) Specimen source XXX: BLOOD Service Cmnt XXX-Imp: NONE Bacteria identified: NO GROWTH 5 DAYS Performed at [place] [address] [place] [address] : FINAL 05/07/2018 [facility] Comment on above: Performed By: #### B CUL #### [place] [address] [place] [address] CBC WITHOUT DIFFon 9 Erythrocyte distribution width (RBC) [Ratio] 13.2 % Normal 11.7-15.0 [facility] Comment on above: Performed By: #### C AVIATION MEDICINE SPECIALIST #### Main Laboratory [place] [address] [place] [address] Hematocrit (Bld) [Volume fraction] 32.7 % Low 36-44 [facility] Comment on above: Performed By: #### C AVIATION MEDICINE SPECIALIST #### [facility] [place] [address] [place] [address] Hemoglobin (Bld) [Mass/Vol] 10.6 g/dL Low 12.0-15.0 [facility] Comment on above: Performed By: #### C AVIATION MEDICINE SPECIALIST #### [facility] Laboratory [place] [address] [place] [address] MCH (RBC) [Entitic mass] 28.8 pg Normal 26-34 [facility] Comment on above: Performed By: #### C AVIATION MEDICINE SPECIALIST #### [facility] [address] [address] MCHC (RBC) [Mass/Vol] 32.4 % Normal 31-37 [facility] Comment on above: Performed By: #### C AVIATION MEDICINE SPECIALIST #### [facility] [place] [address] [place] [address] MCV (RBC) [Entitic vol] 88.9 fL Normal 80-100 [facility] Comment on above: Performed By: #### C AVIATION MEDICINE SPECIALIST #### [facility] [address] [address] MEAN PLT VOL 11.7 CU Normal 7.0-12.6 [facility] Comment on above: Performed By: #### C AVIATION MEDICINE SPECIALIST #### [facility] [address] [address] [address] [address]BC'[address] 0 [facility] Comment on above: Result Comment: 0 Performed at [address] [address] Performed By: #### C AVIATION MEDICINE SPECIALIST #### [facility] [address] [address] [place] [address] Platelets (Bld) [#/Vol] 188 10*3/uL Normal 150-450 [facility] Comment on above: Performed By: #### C AVIATION MEDICINE SPECIALIST #### [facility] [address] [address] RBC (Bld) [#/Vol] 3.68 M/UL Low 4.0-4.9 [facility] Comment on above: Performed By: #### C AVIATION MEDICINE SPECIALIST #### [facility] [address] [address] [place] [address] RDW-SD 43.1 FL Normal 37.0-54.0 [facility] Comment on above: Performed By: #### C AVIATION MEDICINE SPECIALIST #### [facility] [address] [address] [place] [address] WBC (Bld) [#/Vol] 5.7 10*3/uL Normal 4.5-11.0 [facility] Comment on above: Performed By: #### C AVIATION MEDICINE SPECIALIST #### Main Laboratory [address] [address] [place] [address] COMPREHENSIVE METABOLIC PANE Jl 05-07-2018 Bilirubin [Mass/Vol] Normal 0.1-1.2 [facility] Comment on above: Result Comment: 0.2 LESS THAN Performed By: #### C AVIATION MEDICINE SPECIALIST ####[facility] LaboratoryL[facility] Unzv[address] [place] [address] Albumin [Mass/Vol] 2.3 g/dL Low 3.5-5.0 [facility] Comment on above: Performed By: #### C AVIATION MEDICINE SPECIALIST ####[facility] LaboratoryL[facility] Kfvm[address] [place] [address] Albumin/Globulin [Mass ratio] 0.9 {ratio} Low 1.5-3.0 [facility] Comment on above: Performed By: #### C AVIATION MEDICINE SPECIALIST ####[facility] LaboratoryLake [id number] [place] [address] ALP [Catalytic activity/Vol] 80 U/L Normal 35-125 [facility] Comment on above: Performed By: #### C AVIATION MEDICINE SPECIALIST ####[facility] LaboratoryL[facility] Sssz[address] [place] [address] ALT [Catalytic activity/Vol] Normal 5-40 [facility] Comment on above: Result Comment: 12 Performed at [address] [address] [place] [address] Performed By: #### C AVIATION MEDICINE SPECIALIST ####[facility] LaboratoryL[facility] Myso[address] [place] [address] Anion gap [Moles/Vol] 10 mmol/L Normal 0-19 [facility] Comment on above: Performed By: #### C AVIATION MEDICINE SPECIALIST ####[facility] LaboratoryL[facility] Ydkl[address] [place] [address] AST [Catalytic activity/Vol] 18 U/L Normal 5-40 [facility] Comment on above: Performed By: #### C AVIATION MEDICINE SPECIALIST ####[facility] Laboratory[facility] Djkt[address] [place] [address] Calcium [Mass/Vol] 8.1 mg/dL Low 8.5-10.4 [facility] Comment on above: Performed By: #### C AVIATION MEDICINE SPECIALIST ####[facility] Laboratory[facility] Wvcq[address] [place] [address] Chloride [Moles/Vol] 109 mmol/L High 97-107 [facility] Comment on above: Performed By: #### C AVIATION MEDICINE SPECIALIST ####[facility] Laboratory[facility] Fmfk[address] [place] [address] CO2 [Moles/Vol] 24 mmol/L Normal 24-31 [facility] Comment on above: Performed By: #### C AVIATION MEDICINE SPECIALIST ####[facility] Kifu[address] [place] [address] Creatinine [Mass/Vol] 2.3 mg/dL High 0.4-1.6 [facility] Comment on above: Performed By: #### C AVIATION MEDICINE SPECIALIST ####[facility] LaboratoryL[place] Xtnv[address] [place] [address] Globulin (S) [Mass/Vol] 2.7 g/dL Normal 1.9-3.7 [facility] Comment on above: Performed By: #### C AVIATION MEDICINE SPECIALIST ####[facility] LaboratoryL[place]na Iiuw[address] [place] [address] Glucose [Mass/Vol] 138 mg/dL High 65-99 [facility] Comment on above: Performed By: #### C AVIATION MEDICINE SPECIALIST ####[facility] LaboratoryL[facility] Zsfm[address] [place] [address] Potassium [Moles/Vol] 3.8 mmol/L Normal 3.4-5.1 [facility] Comment on above: Performed By: #### C AVIATION MEDICINE SPECIALIST ####[facility] LaboratoryLake Bpop[address] [place] [address] Protein [Mass/Vol] 5.0 g/dL Low 5.9-7.9 [facility] Comment on above: Performed By: #### C AVIATION MEDICINE SPECIALIST ####[facility] LaboratoryL[facility] Ccyd[address] [place] [address] Sodium [Moles/Vol] 143 mmol/L Normal 133-145 [facility] Comment on above: Performed By: #### C AVIATION MEDICINE SPECIALIST ####[facility] LaboratoryL[facility] Ptgl[address] [place] [address] Urea nitrogen [Mass/Vol] 30 mg/dL High 8-25 [facility] Comment on above: Performed By: #### C AVIATION MEDICINE SPECIALIST ####[facility] [place] [address] Urea nitrogen/Creatinine [Mass ratio] 13.0 RATIO Normal 8-21 [facility] Comment on above: Performed By: #### C AVIATION MEDICINE SPECIALIST ####[facility] [place] [address] POCT GLUCOSEon 05-07-2018 Glucose [Mass/Vol] 76 mg/dL Normal 65-99 [facility] Comment on above: Performed By: #### P CGL ####[facility] [place] [address] Glucose [Mass/Vol] 63 mg/dL Low 65-99 [facility] Comment on above: Performed By: #### P CGL ####[facility] [place] [address] Glucose [Mass/Vol] 106 mg/dL High 65-99 [facility] Comment on above: Performed By: #### P CGL ####[facility] [place] [address] Glucose [Mass/Vol] 112 mg/dL High 65-99 [facility] Comment on above: Performed By: #### P CGL ####[facility] [place] [address] Glucose [Mass/Vol] 137 mg/dL High 65-99 [facility] Comment on above: Performed By: #### P CGL ####[facility] [place] [address] Glucose [Mass/Vol] 129 mg/dL High 65-99 [facility] Comment on above: Performed By: #### C AVIATION MEDICINE SPECIALIST #### [facility] [address] [place] [address] POCT GLUCOSEon 05-06-2018 Glucose [Mass/Vol] 186 mg/dL High 65-99 [facility] Comment on above: Performed By: #### C AVIATION MEDICINE SPECIALIST #### [facility] [address] [place] [address] Glucose [Mass/Vol] 162 mg/dL High 65-99 [facility] Comment on above: Performed By: #### C AVIATION MEDICINE SPECIALIST #### [facility] [address] [place] [address] Glucose [Mass/Vol] 105 mg/dL High 65-99 [facility] Comment on above: Performed By: #### C AVIATION MEDICINE SPECIALIST #### [facility] [address] [facility] [place] [address] Glucose [Mass/Vol] 63 mg/dL Low 65-99 [facility] Comment on above: Performed By: #### C AVIATION MEDICINE SPECIALIST #### [facility] [address] [place] [address] Glucose [Mass/Vol] 62 mg/dL Low 65-99 [facility] Comment on above: Performed By: #### C AVIATION MEDICINE SPECIALIST #### [place] [address] [address] [place] [address] Glucose [Mass/Vol] 60 mg/dL Low 65-99 [facility] Comment on above: Performed By: #### C AVIATION MEDICINE SPECIALIST #### [address] [address] [address] [place]en[place] [address] Glucose [Mass/Vol] 179 mg/dL High 65-99 [facility] Comment on above: Performed By: #### C AVIATION MEDICINE SPECIALIST #### [address] [address] [address] [address] [place] [address] CBC WITHOUT DIFFon 9 Erythrocyte distribution width (RBC) [Ratio] 13.0 % Normal 11.7-15.0 [facility] Comment on above: Performed By: #### C BCD #### [address] [address] [address] [place]en[place] [address] Hematocrit (Bld) [Volume fraction] 32.7 % Low 36-44 [facility] Comment on above: Performed By: #### C BCD #### [address] [address] [address] [place] [address] Hemoglobin (Bld) [Mass/Vol] 10.6 g/dL Low 12.0-15.0 [facility] Comment on above: Performed By: #### C BCD #### [address] [address] [place] [address] MCH (RBC) [Entitic mass] 28.2 pg Normal 26-34 [facility] Comment on above: Performed By: #### C BCD #### [facility] [address] [address] [place] [address] MCHC (RBC) [Mass/Vol] 32.4 % Normal 31-37 [facility] Comment on above: Performed By: #### C BCD #### [facility] [address] [address] [place] [address] MCV (RBC) [Entitic vol] 87.0 fL Normal 80-100 [facility] Comment on above: Performed By: #### C BCD #### [facility] [address] [address] [address] [place] [address] MEAN PLT VOL 11.9 CU Normal 7.0-12.6 [facility] Comment on above: Performed By: #### C BCD #### [facility] [address] [address] [place] [address] NRBC'[address] [facility] Comment on above: Result Comment: 0 Performed at [place] [address] [facility] [address] Performed By: #### C BCD #### [facility] [address] [address] [place] [address] Platelets (Bld) [#/Vol] 191 10*3/uL Normal 150-450 [facility] Comment on above: Performed By: #### C BCD #### [facility] [address] [address] [place] [address] RBC (Bld) [#/Vol] 3.76 M/UL Low 4.0-4.9 [facility] Comment on above: Performed By: #### C BCD #### [facility] [address] [address] [address] [place] [address] RDW-SD 41.1 FL Normal 37.0-54.0 [facility] Comment on above: Performed By: #### C BCD #### [facility] [address] [address] [place] [address] WBC (Bld) [#/Vol] 6.8 10*3/uL Normal 4.5-11.0 [facility] Comment on above: Performed By: #### C BCD #### [facility] [address] [address] [place] [address] COMPREHENSIVE METABOLIC PANE Jl 05-05-2018 Glucose [Mass/Vol] High 65-99 [facility] Comment on above: Result Comment: 538 RESULT CHECKED VERIPHY Performed By: #### C BCD #### [facility] [address] [address] [place] [address] Albumin [Mass/Vol] 2.2 g/dL Low 3.5-5.0 [facility] Comment on above: Performed By: #### C BCD #### [facility] [place] [address] [address] [place] [address] Albumin/Globulin [Mass ratio] 0.7 {ratio} Low 1.5-3.0 [facility] Comment on above: Performed By: #### C BCD #### [facility] [place] [place] [address] [address] [place] [address] ALP [Catalytic activity/Vol] 86 U/L Normal 35-125 [facility] Comment on above: Performed By: #### C BCD #### [facility] [address] [address] [place] [address] ALT [Catalytic activity/Vol] Normal 5-40 [facility] Comment on above: Result Comment: 10 Performed at [address] [address] [address] [place] [address] Performed By: #### C BCD #### [facility] [address] [address] [address] [facility] [place] [address] Anion gap [Moles/Vol] 13 mmol/L Normal 0-19 [facility] Comment on above: Performed By: #### C BCD #### [facility] [address] [address] [place] [address] AST [Catalytic activity/Vol] 12 U/L Normal 5-40 [facility] Comment on above: Performed By: #### C BCD #### [facility] [address] [address] [place] [address] Bilirubin [Mass/Vol] 0.3 mg/dL Normal 0.1-1.2 [facility] Comment on above: Performed By: #### C BCD #### [facility] [address] [place] [address] Calcium [Mass/Vol] 8.0 mg/dL Low 8.5-10.4 [facility] Comment on above: Performed By: #### C BCD #### [facility] [address] [address] [place] [address] Chloride [Moles/Vol] 103 mmol/L Normal 97-107 [facility] Comment on above: Performed By: #### C BCD #### [facility] [address] [address] [place] [address] CO2 [Moles/Vol] 21 mmol/L Low 24-31 [facility] Comment on above: Performed By: #### C BCD #### [facility] [address] [address] [place] [address] Creatinine [Mass/Vol] 1.9 mg/dL High 0.4-1.6 [facility] Comment on above: Performed By: #### C BCD #### [facility] [address] [address] [place] [address] Globulin (S) [Mass/Vol] 3.0 g/dL Normal 1.9-3.7 [facility] Comment on above: Performed By: #### C BCD #### [address] [address] [place] [address] Potassium [Moles/Vol] 4.1 mmol/L Normal 3.4-5.1 [facility] Comment on above: Performed By: #### C BCD #### [facility] [address] [address] [place] [address] Protein [Mass/Vol] 5.2 g/dL Low 5.9-7.9 [facility] Comment on above: Performed By: #### C BCD #### [facility] [address] [address] [place] [address] Sodium [Moles/Vol] 137 mmol/L Normal 133-145 [facility] Comment on above: Performed By: #### C BCD #### [facility] [place] [place] [address] Urea nitrogen [Mass/Vol] 28 mg/dL High 8-25 [facility] Comment on above: Performed By: #### C BCD #### Main Laboratory [place] [address] [place] [address] Urea nitrogen/Creatinine [Mass ratio] 14.7 RATIO Normal 8-21 [facility] Comment on above: Performed By: #### C BCD #### Main Laboratory [address] [place] [address] HEMOGLOBIN A1con 05-05-2018 HbA1c (Bld) [Mass fraction] High 4.0-6.0 [facility] Comment on above: Result Comment: 9.6 Hemoglobin A1C levels are related to mean blood glucose during the preceding 2-3 months. The relationship table below may be used as a general guide. Each 1% increase in HGB A1C is a reflection of an increase in mean glucose of approximately 30 mg/dl. Reference: Diabetes Care, volume 29, supplement 1 2005 HGB A1C ................. Approx. Mean Glucose 6% ............................... 120 mg/dl 7% ............................... 150 mg/dl 8% ............................... 180 mg/dl 9% ............................... 210 mg/dl 10% ............................... 240 mg/dl Performed at [address] [facility] [address] Performed By: #### C BCD #### Main Laboratory [place] [address] [place] [address] Lactic Acid Venouson 019 Lactic Acid Venous High 0.9-1.7 [facility] Comment on above: Result Comment: 2.2 VERIPHY Performed at [place] [address] [facility] [address] Performed By: #### C BCD #### [address] [address] [place] [address] POCT GLUCOSEon 05-05-2018 Glucose [Mass/Vol] 245 mg/dL High 65-99 [facility] Comment on above: Performed By: #### C AVIATION MEDICINE SPECIALIST #### [address] [address] [place] [address] Glucose [Mass/Vol] 428 mg/dL High 65-99 [facility] Comment on above: Performed By: #### C BCD #### [address] [address] [place] [address] Glucose [Mass/Vol] 415 mg/dL High 65-99 [facility] Comment on above: Performed By: #### C BCD #### [address] [address] [place] [address] CBC with Diffon 05-04-2018 AB IMMATURE NEUT 0.08 K/UL Normal 0.0-0.1 [facility] Comment on above: Performed By: #### C BCD #### [address] [address] [place] [address] ABS BASO 0.02 K/UL Normal 0.00-0.22 [facility] Comment on above: Performed By: #### C BCD #### [address] [address] [place] [address] ABS EOS 0.02 K/UL Normal 0-0.45 [facility] Comment on above: Performed By: #### C BCD #### [address] [address] [place] [address] ABS NEUTROPHILS 9.90 K/UL High 1.8-7.7 [facility] Comment on above: Performed By: #### C BCD #### [address] [address] [place] [address] ABS.[address]UT[address]CALCULATED Normal [facility] Comment on above: Result Comment: 9.90 Performed at [place] [address] [facility] [place] [address] Performed By: #### C BCD #### [address] [address] [address] [place] [address] Basophils/100 WBC (Bld) 0.20 % Normal 0-1 [facility] Comment on above: Performed By: #### C BCD #### [place] [address] [place] [address] DIFF TYPE AUTO DIFF Normal [facility] Comment on above: Performed By: #### C BCD #### [address] [address] [address] [place] [address] Eosinophils/100 WBC (Bld) 0.20 % Normal 0-3 [facility] Comment on above: Performed By: #### C BCD #### [address] [address] [place] [address] Erythrocyte distribution width (RBC) [Ratio] 12.9 % Normal 11.7-15.0 [facility] Comment on above: Performed By: #### C BCD #### [address] [address] [place] [address] Hematocrit (Bld) [Volume fraction] 39.4 % Normal 36-44 [facility] Comment on above: Performed By: #### C BCD #### [address] [address] [place] [address] Hemoglobin (Bld) [Mass/Vol] 13.2 g/dL Normal 12.0-15.0 [facility] Comment on above: Performed By: #### C BCD #### [address] [address] [place] [address] Lymphocytes (Bld) [#/Vol] 1.51 10*3/uL Normal 1.2-3.2 [facility] Comment on above: Performed By: #### C BCD #### [address] [address] [place] [address] Lymphocytes/100 WBC (Bld) 12.20 % Low 20-40 [facility] Comment on above: Performed By: #### C BCD #### [facility] [place] [address] [place] [address] MCH (RBC) [Entitic mass] 28.7 pg Normal 26-34 [facility] Comment on above: Performed By: #### C BCD #### [facility] [place] [address] [place] [address] MCHC (RBC) [Mass/Vol] 33.5 % Normal 31-37 [facility] Comment on above: Performed By: #### C BCD #### [facility] [place] [address] [address] [place] [address] MCV (RBC) [Entitic vol] 85.7 fL Normal 80-100 [facility] Comment on above: Performed By: #### C BCD #### [place] [address] [address] [place] [address] MEAN PLT VOL 11.8 CU Normal 7.0-12.6 [facility] Comment on above: Performed By: #### C BCD #### [address] [address] [place] [address] Monocytes (Bld) [#/Vol] 0.82 10*3/uL High 0-0.8 [facility] Comment on above: Performed By: #### C BCD #### [place] [address] [place] [address] Monocytes/100 WBC (Bld) 6.60 % Normal 0-8 [facility] Comment on above: Performed By: #### C BCD #### [facility] [place] [address] [place] [address] Neutrophils/100 WBC (Bld) 0.60 % Normal 0.0-1.0 [facility] Comment on above: Performed By: #### C BCD #### [facility] [place] [address] [place] [address] Neutrophils/100 WBC (Bld) 80.20 % High 50-70 [facility] Comment on above: Performed By: #### C BCD #### [facility] [place] [address] [place] [address] NRBC'S 0 /[address] [facility] Comment on above: Performed By: #### C BCD #### [facility] [address] [place] [address] Platelets (Bld) [#/Vol] 243 10*3/uL Normal 150-450 [facility] Comment on above: Performed By: #### C BCD #### [facility] [place] [address] [place] [address] RBC (Bld) [#/Vol] 4.60 M/UL Normal 4.0-4.9 [facility] Comment on above: Performed By: #### C BCD #### [facility] [place] [address] [place] [address] RDW-SD 40.0 FL Normal 37.0-54.0 [facility] Comment on above: Performed By: #### C BCD #### [facility] [place] [address] [place] [address] WBC (Bld) [#/Vol] 12.4 10*3/uL High 4.5-11.0 [facility] Comment on above: Performed By: #### C BCD #### [facility] [place] [address] [place] [address] COMPREHENSIVE METABOLIC PANE Jl 05-04-2018 Glucose [Mass/Vol] High 65-99 [facility] Comment on above: Result Comment: 591 RESULT CHECKED VERIPHY Performed By: #### C BCD #### [facility] [place] [address] [place] [address] Albumin [Mass/Vol] 2.9 g/dL Low 3.5-5.0 [facility] Comment on above: Performed By: #### C BCD #### [facility] [address] [place] [address] Albumin/Globulin [Mass ratio] 0.8 {ratio} Low 1.5-3.0 [facility] Comment on above: Performed By: #### C BCD #### [facility] [place] [address] [place] [address] ALP [Catalytic activity/Vol] 113 U/L Normal 35-125 [facility] Comment on above: Performed By: #### C BCD #### Main Laboratory [facility] [address] [place] [address] ALT [Catalytic activity/Vol] 13 U/L Normal 5-40 [facility] Comment on above: Performed By: #### C BCD #### [facility] [address] [place] [address] Anion gap [Moles/Vol] 16 mmol/L Normal 0-19 [facility] Comment on above: Performed By: #### C BCD #### [facility] [address] [place] [address] AST [Catalytic activity/Vol] 16 U/L Normal 5-40 [facility] Comment on above: Performed By: #### C BCD #### [facility] [address] [place] [address] Bilirubin [Mass/Vol] 0.3 mg/dL Normal 0.1-1.2 [facility] Comment on above: Performed By: #### C BCD #### [facility] [address] [place] [address] Calcium [Mass/Vol] 8.8 mg/dL Normal 8.5-10.4 [facility] Comment on above: Performed By: #### C BCD #### [facility] [address] [place] [address] Chloride [Moles/Vol] 97 mmol/L Normal 97-107 [facility] Comment on above: Performed By: #### C BCD #### [facility] [address] [place] [address] CO2 [Moles/Vol] 23 mmol/L Low 24-31 [facility] Comment on above: Performed By: #### C BCD #### [facility] [address] [place] [address] Creatinine [Mass/Vol] 1.7 mg/dL High 0.4-1.6 [facility] Comment on above: Performed By: #### C BCD #### [facility] [address] [place] [address] GFR/1.73 sq M.predicted MDRD (S/P/Bld) [Vol rate/Area] Normal [facility] Comment on above: Result Comment: 34 GFR ml/min/1.73m2 Stage ----- 90 1 60-89 2 30-59 3 15-29 4 <15 5 For -Americans, multiply EGFR result by 1.210 Calculation not validated for patients under 18 years of age. Performed at [address] [address] Performed By: #### C BCD #### [address] [address] Globulin (S) [Mass/Vol] 3.5 g/dL Normal 1.9-3.7 [facility] Comment on above: Performed By: #### C BCD #### [address] [address] Potassium [Moles/Vol] 4.0 mmol/L Normal 3.4-5.1 [facility] Comment on above: Performed By: #### C BCD #### [address] [address] Protein [Mass/Vol] 6.4 g/dL Normal 5.9-7.9 [facility] Comment on above: Performed By: #### C BCD #### [address] [address] Sodium [Moles/Vol] 136 mmol/L Normal 133-145 [facility] Comment on above: Performed By: #### C BCD #### [address] [address] [place] [address] Urea nitrogen [Mass/Vol] 30 mg/dL High 8-25 [facility] Comment on above: Performed By: #### C BCD #### [facility] [address] [address] [place] [address] Urea nitrogen/Creatinine [Mass ratio] 17.6 RATIO Normal 8-21 [facility] Comment on above: Performed By: #### C BCD #### [facility] [address] [address] [place] [address] LIPASE PSon 02-05-2019 LIPASE PS Normal 16-63 [facility] Comment on above: Result Comment: 30 Performed at [address] [place] [address] Performed By: #### C BCD #### [facility] [address] [place] [address] Lactic Acid Venouson 019 Lactic Acid Venous High 0.9-1.7 [facility] Comment on above: Result Comment: 4.1 VERIPHY Performed at [address] [place] [address] Performed By: #### L ACV #### [facility] [address] [address] [place] [address] UA-REFLEX TO CULTUREon 05-04 BACT Negative [facility] Comment on above: Performed By: #### U ACUL #### [facility] [address] [address] [place] [address] MICROSCOPIC AUTOMATIC MICROSCOPI C URINES [facility] Comment on above: Performed By: #### U ACUL #### [facility] [address] [address] [address] [place] [address] RBC 11 /HPF High 0-3 [facility] Comment on above: Performed By: #### U ACUL #### [facility] [address] [place] [address] [facility] [place] [address] URINE HYALINE CAST 6 /LPF Normal [facility] Comment on above: Performed By: #### U ACUL #### [facility] [address] [address] [facility] [place] [address] URINE SQUAMOUS EPI FEW Normal [facility] Comment on above: Performed By: #### U ACUL #### [facility] [address] [address] [address] [address] WBC 2 /HPF Normal 0-3 [facility] Comment on above: Performed By: #### U ACUL #### [facility] [address] [place] [address] Bacteria identified Cx Nom (U) [facility] Comment on above: Result Comment: CULT URE NOT INDICATED Performed at [address] [place] [address] Performed By: #### U ACUL #### [facility] [address] [place] [address] BILI Negative Normal NEG [facility] Comment on above: Performed By: #### U ACUL #### [facility] [address] [place] [address] BLOOD SMALL Abnormal NEG [facility] Comment on above: Performed By: #### U ACUL #### [facility] [address] [place] [address] Clarity (U) CLEAR Normal [facility] Comment on above: Performed By: #### U ACUL #### [facility] [address] [place] [address] Color (U) PALE YELLOW [facility] Comment on above: Performed By: #### U ACUL #### [facility] [address] [place] [address] GLUC >=[address] [facility] Comment on above: Performed By: #### U ACUL #### [facility] [address] [place] [address] KET Negative Normal NEG [facility] Comment on above: Performed By: #### U ACUL #### [facility] [address] [place] [address] LEUK Negative Normal NEG [facility] Comment on above: Performed By: #### U ACUL #### [facility] [address] [place] [address] NIT Negative Normal NEG [facility] Comment on above: Performed By: #### U ACUL #### [facility] [address] [place] [address] pH (U) 7.0 [pH] Normal 4.6-8.0 [facility] Comment on above: Performed By: #### U ACUL #### [facility] [address] [place] [address] PROT 600 mg/dL Abnormal NEG [facility] Comment on above: Performed By: #### U ACUL #### [facility] [address] [place] [address] SP GRAV,URINE 1.019 Normal 1.005-1.030 [facility] Comment on above: Performed By: #### U ACUL #### [facility] [address] [address] [address] [facility] [place] [address] URO NORMAL Normal 0-1.0 [facility] Comment on above: Performed By: #### U ACUL #### [facility] [address] [address] [address] [place] [address] CBC with Diffon 05-02-2018 AB IMMATURE NEUT 0.03 K/UL Normal 0.0-0.1 [facility] Comment on above: Performed By: #### C BCD #### [facility] [address] [address] [place] [address] ABS BASO 0.03 K/UL Normal 0.00-0.22 [facility] Comment on above: Performed By: #### C BCD #### [facility] [address] [address] [address] [facility] [place] [address] ABS EOS 0.35 K/UL Normal 0-0.45 [facility] Comment on above: Performed By: #### C BCD #### [facility] [address] [address] [place] [address] ABS NEUTROPHILS 4.47 K/UL Normal 1.8-7.7 [facility] Comment on above: Performed By: #### C BCD #### [facility] [address] [address] [address] [place] [address] ABS.NEUT.CALCULATED Normal [facility] Comment on above: Result Comment: 4.47 Performed at [address] [address] [facility] [place] [address] Performed By: #### C BCD #### [facility] [address] [address] [place] [address] Basophils/100 WBC (Bld) 0.40 % Normal 0-1 [facility] Comment on above: Performed By: #### C BCD #### [facility] [place] [address] [facility] [place] [address] DIFF TYPE AUTO DIFF Normal [facility] Comment on above: Performed By: #### C BCD #### [facility] [address] [place] [address] Eosinophils/100 WBC (Bld) 5.10 % High 0-3 [facility] Comment on above: Performed By: #### C BCD #### [facility] [address] [place] [address] Erythrocyte distribution width (RBC) [Ratio] 13.2 % Normal 11.7-15.0 [facility] Comment on above: Performed By: #### C BCD #### [facility] [address] [place] [address] Hematocrit (Bld) [Volume fraction] 37.2 % Normal 36-44 [facility] Comment on above: Performed By: #### C BCD #### [address] [place] [address] Hemoglobin (Bld) [Mass/Vol] 12.4 g/dL Normal 12.0-15.0 [facility] Comment on above: Performed By: #### C BCD #### [address] [address] [place] [address] Lymphocytes (Bld) [#/Vol] 1.35 10*3/uL Normal 1.2-3.2 [facility] Comment on above: Performed By: #### C BCD #### [address] [place] [address] Lymphocytes/100 WBC (Bld) 19.70 % Low 20-40 [facility] Comment on above: Performed By: #### C BCD #### [address] [place] [address] MCH (RBC) [Entitic mass] 29.1 pg Normal 26-34 [facility] Comment on above: Performed By: #### C BCD #### [address] [place] [address] MCHC (RBC) [Mass/Vol] 33.3 % Normal 31-37 [facility] Comment on above: Performed By: #### C BCD #### [address] [place] [address] MCV (RBC) [Entitic vol] 87.3 fL Normal 80-100 [facility] Comment on above: Performed By: #### C BCD #### [address] [place] [address] MEAN PLT VOL 11.5 CU Normal 7.0-12.6 [facility] Comment on above: Performed By: #### C BCD #### [facility] [address] [address] [place] [address] Monocytes (Bld) [#/Vol] 0.62 10*3/uL Normal 0-0.8 [facility] Comment on above: Performed By: #### C BCD #### [facility] [address] [address] [place] [address] Monocytes/100 WBC (Bld) 9.10 % High 0-8 [facility] Comment on above: Performed By: #### C BCD #### [facility] [address] [address] [place] [address] Neutrophils/100 WBC (Bld) 65.30 % Normal 50-70 [facility] Comment on above: Performed By: #### C BCD #### [address] [address] [place] [address] Neutrophils/100 WBC (Bld) 0.40 % Normal 0.0-1.0 [facility] Comment on above: Performed By: #### C BCD #### [address] [address] [place] [address] NRBC'S 0 /[address] [facility] Comment on above: Performed By: #### C BCD #### [address] [address] [place] [address] Platelets (Bld) [#/Vol] 228 10*3/uL Normal 150-450 [facility] Comment on above: Performed By: #### C BCD #### [facility] [address] [address] [place] [address] RBC (Bld) [#/Vol] 4.26 M/UL Normal 4.0-4.9 [facility] Comment on above: Performed By: #### C BCD #### [facility] [address] [address] [place] [address] RDW-SD 41.7 FL Normal 37.0-54.0 [facility] Comment on above: Performed By: #### C BCD #### [facility] [address] [address] [place] [address] WBC (Bld) [#/Vol] 6.9 10*3/uL Normal 4.5-11.0 [facility] Comment on above: Performed By: #### C BCD #### [facility] [address] [address] [place] [address] COMPREHENSIVE METABOLIC PANE Jl 05-02-2018 Albumin [Mass/Vol] 2.5 g/dL Low 3.5-5.0 [facility] Comment on above: Performed By: #### C AVIATION MEDICINE SPECIALIST #### [facility] [address] [address] [place] [address] Albumin/Globulin [Mass ratio] 0.8 {ratio} Low 1.5-3.0 [facility] Comment on above: Performed By: #### C AVIATION MEDICINE SPECIALIST #### [address] [address] [place] [address] ALP [Catalytic activity/Vol] 102 U/L Normal 35-125 [facility] Comment on above: Performed By: #### C AVIATION MEDICINE SPECIALIST #### [address] [address] [place] [address] ALT [Catalytic activity/Vol] 12 U/L Normal 5-40 [facility] Comment on above: Performed By: #### C AVIATION MEDICINE SPECIALIST #### [facility] [address] [address] [place] [address] Anion gap [Moles/Vol] 13 mmol/L Normal 0-19 [facility] Comment on above: Performed By: #### C AVIATION MEDICINE SPECIALIST #### [facility] [address] [address] [place] [address] AST [Catalytic activity/Vol] 16 U/L Normal 5-40 [facility] Comment on above: Performed By: #### C AVIATION MEDICINE SPECIALIST #### [facility] [address] [address] [place] [address] Bilirubin [Mass/Vol] Normal 0.1-1.2 [facility] Comment on above: Result Comment: 0.2 LESS THAN Performed By: #### C AVIATION MEDICINE SPECIALIST #### [facility] [address] [address] [place] [address] Calcium [Mass/Vol] 8.2 mg/dL Low 8.5-10.4 [facility] Comment on above: Performed By: #### C AVIATION MEDICINE SPECIALIST #### [facility] [address] [address] Chloride [Moles/Vol] 100 mmol/L Normal 97-107 [facility] Comment on above: Performed By: #### C AVIATION MEDICINE SPECIALIST #### [facility] [address] [address] CO2 [Moles/Vol] 25 mmol/L Normal 24-31 [facility] Comment on above: Performed By: #### C AVIATION MEDICINE SPECIALIST #### [facility] [address] [address] Creatinine [Mass/Vol] 1.8 mg/dL High 0.4-1.6 [facility] Comment on above: Performed By: #### C AVIATION MEDICINE SPECIALIST #### [facility] [address] [address] GFR/1.73 sq M.predicted MDRD (S/P/Bld) [Vol rate/Area] Normal [facility] Comment on above: Result Comment: 31 GFR ml/min/1.73m2 Stage ----- 90 1 60-89 2 30-59 3 15-29 4 <15 5 For -Americans, multiply EGFR result by 1.210 Calculation not validated for patients under 18 years of age. Performed at [address] [place] [address] Performed By: #### C AVIATION MEDICINE SPECIALIST #### [address] [address] Globulin (S) [Mass/Vol] 3.2 g/dL Normal 1.9-3.7 [facility] Comment on above: Performed By: #### C AVIATION MEDICINE SPECIALIST #### [facility] [address] [address] Glucose [Mass/Vol] 229 mg/dL High 65-99 [facility] Comment on above: Performed By: #### C AVIATION MEDICINE SPECIALIST #### [facility] [address] [address] Potassium [Moles/Vol] 3.9 mmol/L Normal 3.4-5.1 [facility] Comment on above: Performed By: #### C AVIATION MEDICINE SPECIALIST #### [facility] [id number] [place] [address] Protein [Mass/Vol] 5.7 g/dL Low 5.9-7.9 [facility] Comment on above: Performed By: #### C AVIATION MEDICINE SPECIALIST #### [facility] [address] [address] Sodium [Moles/Vol] 138 mmol/L Normal 133-145 [facility] Comment on above: Performed By: #### C AVIATION MEDICINE SPECIALIST #### [facility] [address] [address] Urea nitrogen [Mass/Vol] 24 mg/dL Normal 8-25 [facility] Comment on above: Performed By: #### C AVIATION MEDICINE SPECIALIST #### [facility] [address] [address] Urea nitrogen/Creatinine [Mass ratio] 13.3 RATIO Normal 8-21 [facility] Comment on above: Performed By: #### C AVIATION MEDICINE SPECIALIST #### [facility] [address] [address] ELBOW RT MIN 3 VIEWon 2018 ELBOW RT MIN 3 VIEW *FINAL Date of Service: 05/02/2018 17:09 Adm #: [id number] Reading Dr:MIGNON HORTA Signoff Dr: MIGNON OHRTA PROCEDURE: ELBOW RT MIN 3 VIEW - WXR 0051 REASON FOR EXAM: fall RESULT: EXAM: Right elbow four views CLINICAL HISTORY: Status post fall. Pain. Injury last night. FINDINGS: No fractures or destructive lesions are identified. There is no evidence for joint effusion. IMPRESSION: No acute pathologic findings are identified. This report has been produced using speech recognition. Original Interpreting Physician: MIGNON HORTA M.D. Original Transcribed by/Date: [facility] May 02 2018 5:11P Original Electronically Signed by/Date: MIGNON HORTA M.D. May 02 2018 5:11P Addendum Interpreting Physician: Addendum Transcribed by/Date: NO ADDENDUM Addendum Electronically Signed by/Date: [facility] Lactic Acid Venouson 019 Lactic Acid Venous Normal 0.9-1.7 [facility] Comment on above: Result Comment: 1.7 Performed at [address] [address] Performed By: #### L ACV #### Main Laboratory [address] [place] [address] SHOULDER RT MIN 2 VIEWon SHOULDER RT MIN 2 VIEW *FINAL Date of Service: 05/02/2018 17:09 Adm #: [id number] Reading Dr:MIGNON HORTA Signoff Dr: MIGNON HORTA PROCEDURE: SHOULDER RT MIN 2 VIEW - WXR 0048 REASON FOR EXAM: fall RESULT: EXAM: Right shoulder three views CLINICAL HISTORY: Status post fall. Pain. Injury last night. Patient states pain is a 10 on a scale of 10, with 10 the worst. FINDINGS: No fractures or destructive lesions are identified. There is narrowing and spurring at the AC joint. IMPRESSION: No acute pathologic findings are identified. This report has been produced using speech recognition. Original Interpreting Physician: MIGNON HORTA M.D. Original Transcribed by/Date: [facility] May 02 2018 5:11P Original Electronically Signed by/Date: MIGNON HORTA M.D. May 02 2018 5:11P Addendum Interpreting Physician: Addendum Transcribed by/Date: NO ADDENDUM Addendum Electronically Signed by/Date: Normal [facility] Vital Signs Date Time Vital Sign Value Performing Clinician Facility 07-31-2024 04:57-0400 Diastolic Blood Pressure Non-Invasive 62 mm[Hg] TORRI SARAHI DO [facility] 07-31-2024 04:57-0400 Heart rate 82 /min TORRI MCCLAIN DO [facility] 07-31-2024 04:57-0400 Respiratory rate 18 /min TORRI MCCLAIN DO [facility] 07-31-2024 04:57-0400 Systolic Blood Pressure Non-Invasive 127 mm[Hg] TORRI MCCLAIN DO [facility] 07-31-2024 03:08-0400 Blood Pressure Cuff Size TORRI MCCLAIN DO [facility] 07-31-2024 03:08-0400 Blood Pressure Location TORRI MCCLAIN DO [facility] 07-31-2024 03:08-0400 Blood Pressure Method TORRI MCCLAIN DO [facility] 07-31-2024 03:08-0400 Body height 155 cm TORRI MCCLAIN DO [facility] 07-31-2024 03:08-0400 Body temperature 98.6 [degF] TORRI MCCLAIN DO [facility] 07-31-2024 03:08-0400 Body weight 109.5 kg TORRI MCCLAIN DO [facility] 07-31-2024 03:08-0400 Diastolic Blood Pressure Non-Invasive 80 mm[Hg] TORRI MCCLAIN DO [facility] 07-31-2024 03:08-0400 Heart rate 86 /min TORRI MCCLAIN DO [facility] 07-31-2024 03:08-0400 Respiratory rate 20 /min TORRI MCCLAIN DO [facility] 07-31-2024 03:08-0400 Systolic Blood Pressure Non-Invasive 186 mm[Hg] TORRI MCCLAIN DO [facility] 07-30-2024 14:04-0400 Body temperature 98.6 [degF] DR REENA LAMAS DO [facility] 07-30-2024 14:04-0400 Diastolic Blood Pressure Non-Invasive 76 mm[Hg] DR REENA LAMAS DO [facility] 07-30-2024 14:04-0400 Heart rate 60 /min DR REENA LAMAS DO [facility] 07-30-2024 14:04-0400 Respiratory rate 18 /min DR REENA LAMAS DO [facility] 07-30-2024 14:04-0400 Systolic Blood Pressure Non-Invasive 132 mm[Hg] DR REENA LAMAS DO [facility] 11-18-2023 13:35-0400 Diastolic Blood Pressure Non-Invasive 72 mm[Hg] EVELINA CURTIS MD [facility] 11-18-2023 13:35-0400 Heart rate 75 /min EVELINA CURTIS MD [facility] 11-18-2023 13:35-0400 Respiratory rate 20 /min EVELINA CURTIS MD [facility] 11-18-2023 13:35-0400 Systolic Blood Pressure Non-Invasive 152 mm[Hg] EVELINA CURTIS MD [facility] 11-18-2023 10:45-0400 Blood Pressure Cuff Size EVELINA CURTIS MD [facility] 11-18-2023 10:45-0400 Blood Pressure Location EVELINA CURTIS MD [facility] 11-18-2023 10:45-0400 Blood Pressure Method EVELINA CURTIS MD [facility] 11-18-2023 10:45-0400 Diastolic Blood Pressure Non-Invasive 70 mm[Hg] EVELINA CURTIS MD [facility] 11-18-2023 10:45-0400 Systolic Blood Pressure Non-Invasive 155 mm[Hg] EVELINA CURTIS MD [facility] 11-18-2023 10:33-0400 Heart rate 78 /min EVELINA CURTIS MD [facility] 11-18-2023 10:33-0400 Respiratory rate 26 /min EVELINA CURTIS MD [facility] 11-18-2023 10:210400 Blood Pressure Cuff Size EVELINA CURTIS MD [facility] 11-18-2023 10:210400 Blood Pressure Location EVELINA CURTIS MD [facility] 11-18-2023 10:210400 Blood Pressure Method EVELINA CURTIS MD [facility] 11-18-2023 10:210400 Body temperature 97.7 [degF] EVELINA CURTIS MD [facility] 11-18-2023 10:210400 Diastolic Blood Pressure Non-Invasive 73 mm[Hg] EVELINA CURTIS MD [facility] 11-18-2023 10:210400 Heart rate 77 /min EVELINA CURTIS MD [facility] 11-18-2023 10:210400 Respiratory rate 28 /min EVELINA CURTIS MD [facility] 11-18-2023 10:210400 Systolic Blood Pressure Non-Invasive 161 mm[Hg] EVELINA CURTIS MD [facility] 10-11-2023 21:17-[address] FREDDIE BURRIS DO [facility] 10-11-2023 21:17-[address] FREDDIE BURRIS DO [facility] 10-11-2023 21:17-0400 Body temperature 98.06 [degF] DR FREDDIE BURRIS DO [facility] 10-11-2023 21:17-0400 Diastolic Blood Pressure Non-Invasive 73 mm[Hg] DR FREDDIE BURRIS DO [facility] 10-11-2023 21:17-0400 Heart rate 73 /min DR FREDDIE BURRIS DO [facility] 10-11-2023 21:17-0400 Respiratory rate 18 /min DR FREDDIE BURRIS DO [facility] 10-11-2023 21:17-0400 Systolic Blood Pressure Non-Invasive 158 mm[Hg] DR FREDDIE BURRIS DO [facility] 09-08-2023 10:36-0400 Diastolic blood pressure 71 mm[Hg] Jeremy Aguirre MD, MD Work Phone: [facility] 09-08-2023 10:36-0400 Heart rate 63 /min Jeremy Aguirre MD, MD Work Phone: [facility] 09-08-2023 10:36-0400 Respiratory rate 15 /min Jeremy Aguirre MD, MD Work Phone: [facility] 09-08-2023 10:36-0400 SaO2% (BldA) [Mass fraction] 97 % Jeremy Aguirre MD, MD Work Phone: [facility] 09-08-2023 10:36-0400 Systolic blood pressure 137 mm[Hg] Jeremy Aguirre MD, MD Work Phone: [facility] 07-01-2023 14:57-0400 Body temperature 98.4 [degF] [employer]USH[employer] SEWER-C Denisse Sutton [employer]USH[employer] SEWER Work Phone: [facility] 07-01-2023 14:57-0400 Diastolic blood pressure 62 mm[Hg] [employer] SE[employer]-C Denisse Sutton [employer]USH[employer] SEWER Work Phone: [facility] 07-01-2023 14:57-0400 Heart rate 67 /min [employer]-C Denisse Sutton [employer] SE[employer] Work Phone: [facility] 07-01-2023 14:57-0400 Respiratory rate 16 /min [employer]-C Denisse Sutton [employer] SE[employer] Work Phone: [facility] 07-01-2023 14:57-0400 SaO2% (BldA) [Mass fraction] 95 % [employer]-C Denisse Marcson [employer] SE[employer]ER Work Phone: [facility] 07-01-2023 14:57-0400 Systolic blood pressure 131 mm[Hg] [employer] SE[employer]-C Denisse Sutton [employer] SE[employer]ER Work Phone: [facility] 05-27-2023 14:40-0500 Body temperature 98.2 [degF] [employer] SE[employer]-C Denisse Sutton [employer] SE[employer] Work Phone: [facility] 05-27-2023 14:40-0500 Diastolic blood pressure 70 mm[Hg] C[employer] SE[employer]-C Denisse Marcson [employer] SE[employer]ER Work Phone: [facility] 05-27-2023 14:40-0500 Heart rate 65 /min [employer]-C Denisse Marcson [employer] SE[employer]ER Work Phone: [facility] 05-27-2023 14:40-0500 Respiratory rate 18 /min [employer]-C Denisse Sutton C[employer]ION SEWER Work Phone: [facility] 05-27-2023 14:40-0500 SaO2% (BldA) [Mass fraction] 97 % [employer]-C Denisse Sutton C[employer] SEWER Work Phone: [facility] 05-27-2023 14:40-0500 Systolic blood pressure 148 mm[Hg] C[employer] SE[employer]-C Denisse Sutton CUSHION SEWER Work Phone: [facility] 04-27-2023 14:04-0500 Body temperature 97.8 [degF] C[employer] SE[employer]-C Denisse Sutton CUSHION SEWER Work Phone: [facility] 04-27-2023 14:04-0500 Diastolic blood pressure 72 mm[Hg] C[employer] SEW[employer]-C Denisse Sutton CUSHION SEWER Work Phone: [facility] 04-27-2023 14:04-0500 Heart rate 61 /min [employer] SE[employer]-C Denisse Sutton CUSHION SEWER Work Phone: [facility] 04-27-2023 14:04-0500 Respiratory rate 16 /min C[employer] SE[employer]-C Denisse Sutton CUSHION SEWER Work Phone: [facility] 04-27-2023 14:04-0500 SaO2% (BldA) [Mass fraction] 95 % [employer] SE[employer]-C Denisse Sutton CUSHION SEWER Work Phone: [facility] 04-27-2023 14:04-0500 Systolic blood pressure 153 mm[Hg] C[employer] SE[employer]-C Denisse Sutton CUSHION SEWER Work Phone: [facility] 04-27-2023 13:25-0500 Inhaled oxygen flow rate 2 L/min [employer]-C Denisse Sutton C[employer] SE[employer]ER Work Phone: [facility] 04-27-2023 09:24-0500 Body height 157.48 cm C[employer] SE[employer]-C Denisse Sutton [employer] SEWER Work Phone: [facility] 04-27-2023 09:24-0500 Body mass index (BMI) [Ratio] 41.5 kg/m2 [employer]C Denisse Sutton CUSHION SEWER Work Phone: [facility] 04-27-2023 09:24-0500 Body weight 103 kg [employer] SE[employer]-C Denisse Sutton CUSH[employer] SEWER Work Phone: [facility] 04-15-2023 14:35-0500 Body temperature 98.2 [degF] C[employer] SE[employer]-C Denisse Sutton CUSHION SEWER Work Phone: [facility] 04-15-2023 14:35-0500 Diastolic blood pressure 67 mm[Hg] C[employer] SE[employer]ER-C Denisse Sutton CUSHION SEWER Work Phone: [facility] 04-15-2023 14:35-0500 Heart rate 67 /min [employer] SE[employer]-C Denisse Sutton CUSHION SEWER Work Phone: [facility] 04-15-2023 14:35-0500 Respiratory rate 18 /min [employer] SE[employer]-C Denisse Sutton CUSHION SEWER Work Phone: [facility] 04-15-2023 14:35-0500 SaO2% (BldA) [Mass fraction] 98 % [employer] SE[employer]-C Denisse Sutton CUSHION SE[employer]ER Work Phone: [facility] 04-15-2023 14:35-0500 Systolic blood pressure 146 mm[Hg] C[employer] SE[employer]-C Denisse Sutton CUSHION SEWER Work Phone: [facility] 04-07-2023 11:36-0500 Body weight 95.25 kg C[employer]-C Denisse Sutton C[employer] SE[employer]ER Work Phone: [facility] 04-07-2023 09:40-0500 Body mass index (BMI) [Ratio] 42.2 kg/m2 [employer]-C Denisse Sutton C[employer] SE[employer]ER Work Phone: [facility] 04-07-2023 09:40-0500 Body temperature 98.6 [degF] [employer] SE[employer]-C Denisse Sutton C[employer] SEWER Work Phone: [facility] 04-07-2023 09:40-0500 Diastolic blood pressure 66 mm[Hg] C[employer] SE[employer]-C Denisse Sutton CUSHION SEWER Work Phone: [facility] 04-07-2023 09:40-0500 Heart rate 64 /min [employer] SE[employer]-C Denisse Sutton C[employer]ION SEWER Work Phone: [facility] 04-07-2023 09:40-0500 Respiratory rate 18 /min [employer] SE[employer]-C Denisse Sutton CUSHION SEWER Work Phone: [facility] 04-07-2023 09:40-0500 SaO2% (BldA) [Mass fraction] 94 % [employer]-C Denisse Sutton C[employer] SE[employer]ER Work Phone: [facility] 04-07-2023 09:40-0500 Systolic blood pressure 137 mm[Hg] C[employer] SE[employer]-C Denisse Sutton C[employer]ION SEWER Work Phone: [facility] 02-11-2023 11:13-0500 Body temperature 98.6 [degF] C[employer] SE[employer]-C Denisse Sutton CUSHION SEWER Work Phone: [facility] 02-11-2023 11:13-0500 Body weight 102.96 kg [employer]-C Denisse Sutton [employer] SE[employer]ER Work Phone: [facility] 02-11-2023 11:13-0500 Diastolic blood pressure 68 mm[Hg] C[employer] SE[employer]-C Denisse Sutton C[employer] SEWER Work Phone: [facility] 02-11-2023 11:13-0500 Heart rate 67 /min [employer] SE[employer]-C Denisse Sutton C[employer] SE[employer]ER Work Phone: [facility] 02-11-2023 11:13-0500 Respiratory rate 16 /min [employer] SE[employer]-C Denisse Sutton CUSHION SEWER Work Phone: [facility] 02-11-2023 11:13-0500 SaO2% (BldA) [Mass fraction] 96 % [employer]-C Denisse Sutton CUSH[employer] SEWER Work Phone: [facility] 02-11-2023 11:13-0500 Systolic blood pressure 136 mm[Hg] C[employer] SE[employer]-C Denisse Sutton CUSHION SEWER Work Phone: [facility] 01-22-2023 09:27-0400 Body height 157.48 cm C[employer]-C Denisse Sutton [employer] SE[employer] Work Phone: [facility] 01-22-2023 09:27-0400 Body mass index (BMI) [Ratio] 39.6 kg/m2 [employer]-C Denisse Sutton [employer] SE[employer]ER Work Phone: [facility] 01-22-2023 09:27-0400 Body weight 98.3 kg [employer]-C Denisse Lesley [employer] SE[employer]ER Work Phone: [facility] 12-10-2022 15:23-0400 Body temperature 98.4 [degF] [employer] SE[employer]-C Denisse Lesley CUSH[employer] SEWER Work Phone: [facility] 12-10-2022 15:23-0400 Body weight 103.87 kg C[employer] SE[employer]-C Denisse Sutton C[employer]ION SE[employer]ER Work Phone: [facility] 12-10-2022 15:23-0400 Diastolic blood pressure 76 mm[Hg] C[employer] SE[employer]-C Denisse Sutton CUSHION SEWER Work Phone: [facility] 12-10-2022 15:23-0400 Heart rate 70 /min [employer]-C Denisse Sutton CUSHION SEWER Work Phone: [facility] 12-10-2022 15:23-0400 Respiratory rate 16 /min [employer] SE[employer]-C Denisse Sutton CUSHION SEWER Work Phone: [facility] 12-10-2022 15:23-0400 SaO2% (BldA) [Mass fraction] 96 % [employer]-C Denisse Sutton CUSHION SEWER Work Phone: [facility] 12-10-2022 15:23-0400 Systolic blood pressure 132 mm[Hg] C[employer] SE[employer]-C Denisse Sutton [employer] SE[employer]ER Work Phone: [facility] 11-18-2022 11:20-0400 Body temperature 97.7 [degF] LEE CASH MD [facility] 11-18-2022 11:20-0400 Diastolic Blood Pressure Non-Invasive 66 1 LEE CASH MD [facility] 11-18-2022 11:20-0400 Heart rate 60 /min LEE CASH MD [facility] 11-18-2022 11:20-0400 Respiratory rate 16 /min LEE CASH MD [facility] 11-18-2022 11:20-0400 Systolic Blood Pressure Non-Invasive 132 1 LEE CASH MD [facility] 11-18-2022 10:45-0400 Diastolic Blood Pressure Non-Invasive 68 1 LEE CASH MD [facility] 11-18-2022 10:45-0400 Heart rate 60 /min LEE CASH MD [facility] 11-18-2022 10:45-0400 Respiratory rate 18 /min LEE CASH MD [facility] 11-18-2022 10:45-0400 Systolic Blood Pressure Non-Invasive 141 1 LEE CASH MD [facility] 11-18-2022 10:40-0400 Diastolic Blood Pressure Non-Invasive 68 1 LEE CASH MD [facility] 11-18-2022 10:40-0400 Heart rate 61 /min LEE CASH MD [facility] 11-18-2022 10:40-0400 Respiratory rate 17 /min LEE CASH MD [facility] 11-18-2022 10:40-0400 Systolic Blood Pressure Non-Invasive 144 1 LEE CASH MD [facility] 11-18-2022 10:25-0400 Blood Pressure Cuff Size LEE CASH MD [facility] 11-18-2022 10:25-0400 Blood Pressure Location LEE CASH MD [facility] 11-18-2022 10:25-0400 Blood Pressure Method LEE CASH MD [facility] 11-18-2022 08:16-0400 Body height 154.9 cm LEE CASH MD [facility] 11-18-2022 08:16-0400 Body weight 101 kg LEE CASH MD [facility] 11-18-2022 08:07-0400 Body temperature 97.16 [degF] LEE CASH MD [facility] 11-18-2022 08:07-0400 Heart rate 66 /min LEE CASH MD [facility] 11-10-2022 22:31-0400 Body temperature 98.6 [degF] CALDERON PHAN DO [facility] 11-10-2022 22:31-0400 Body weight 102.[address] [facility] 11-10-2022 22:31-0400 Diastolic Blood Pressure Non-Invasive 77 [address] [facility] 11-10-2022 22:31-0400 Heart rate 70 /min CALDERON PHAN DO [facility] 11-10-2022 22:31-0400 Respiratory rate 16 /min CALDERON PHAN DO [facility] 11-10-2022 22:31-0400 Systolic Blood Pressure Non-Invasive 126 [address] [facility] 10-24-2022 14:29-0400 Blood Pressure Cuff Size DR TOÑITO COVINGTON MD [facility] 10-24-2022 14:29-[address] TOÑITO COVINGTON MD [facility] 10-24-2022 14:29-[address] TOÑITO COVINGTON MD [facility] 10-24-2022 14:29-0400 Body temperature 97.88 [degF] DR TOÑITO COVINGTON MD [address] [place] [address] 10-24-2022 14:29-0400 Diastolic Blood Pressure Non-Invasive [address] TOÑITO COVINGTON MD [address] [place] [address] 10-24-2022 14:29-0400 Heart rate 64 /min DR TOÑITO COVINGTON MD [address] [place] [address] 10-24-2022 14:29-0400 Reason For Taking VItal Signs DR TOÑITO COVINGTON MD [address] [place] [address] 10-24-2022 14:29-0400 Respiratory rate 18 /min DR TOÑITO COVINGTON MD [address] [place] [address] 10-24-2022 14:29-0400 Systolic Blood Pressure Non-Invasive [address] TOÑITO COVINGTON MD [address] [place] [address] 10-24-2022 09:26-0400 Reason For Taking VItal Signs DR TOÑITO COVINGTON MD [address] [place] [address] 10-24-2022 08:00-0400 Body temperature 96.8 [degF] DR TOÑITO COVINGTON MD [address] [place] [address] 10-24-2022 08:00-0400 Diastolic Blood Pressure Non-Invasive [address] TOÑITO COVINGTON MD [address] [place] [address] 10-24-2022 08:00-0400 Respiratory rate 16 /min DR TOÑITO COVINGTON MD [address] [place] [address] 10-24-2022 08:00-0400 Systolic Blood Pressure Non-Invasive [address] TOÑITO COVINGTON MD [address] [place] [address] 10-24-2022 04:14-0400 Body height 157.[address] TOÑITO COVINGTON MD [address] [place] [address] 10-24-2022 04:14-0400 Body temperature 96.98 [degF] DR TOÑITO COVINGTON MD [address] [place] [address] 10-24-2022 04:14-0400 Body weight 101.[address] TOÑITO COVINGTON MD [address] [place], [place] [id number] 04:14-0400 Body weight 40.92 kg/m2 DR TOÑITO COVINGTON MD [address] [place] [address] 10-24-2022 04:14-0400 Diastolic Blood Pressure Non-Invasive [address] TOÑITO COVINGTON MD [address] [place] [address] 10-24-2022 04:14-0400 Heart rate 64 /min DR TOÑITO COVINGTON MD [address] [place] [address] 10-24-2022 04:14-0400 Reason For Taking VItal Signs DR TOÑITO COVINGTON MD [address] [place] [address] 10-24-2022 04:14-0400 Respiratory rate 18 /min DR TOÑITO COVINGTON MD [address] [place] [address] 10-24-2022 04:14-0400 Systolic Blood Pressure Non-Invasive [address] TOÑITO COVINGTON MD [address] [place] [address] 10-24-2022 03:16-0400 Heart rate 63 /min DR TOÑITO COVINGTON MD [address] [place] [address] 10-24-2022 00:58-0400 Heart rate 60 /min DR TOÑITO COVINGTON MD [address] [place] [address] 10-23-2022 23:18-0400 Heart rate 63 /min DR TOÑITO COVINGTON MD [address] [place] [address] 10-23-2022 14:50-0400 Body temperature 97.7 [degF] DR TOÑITO COVINGTON MD [address] [place] [address] 10-23-2022 14:50-0400 Body weight [address] TOÑITO COVINGTON MD [address] [place] [address] 08-29-2022 01:50-0400 Diastolic Blood Pressure Non-Invasive [address] FREDDIE BURRIS DO [facility] 08-29-2022 01:50-0400 Heart rate 70 /min DR FREDDIE BURRIS DO [facility] 08-29-2022 01:50-0400 Respiratory rate 18 /min DR FREDDIE BURRIS DO [facility] 08-29-2022 01:50-0400 Systolic Blood Pressure Non-Invasive [address] FREDDIE BURRIS DO [facility] 08-28-2022 23:41-0400 Blood Pressure Cuff Size DR FREDDIE BURRIS DO [facility] 08-28-2022 23:41-[address] FREDDIE BURRIS DO [facility] 08-28-2022 23:41-[address] FREDDIE BURRIS DO [facility] 08-28-2022 23:41-0400 Body height [address] FREDDIE BURRIS DO [facility] 08-28-2022 23:41-0400 Body temperature 98.06 [degF] DR FREDDIE BURRIS DO [facility] 08-28-2022 23:41-0400 Body weight [address] FREDDIE BURRIS DO [facility] 08-28-2022 23:41-0400 Diastolic Blood Pressure Non-Invasive [address] FREDDIE BURRIS DO [facility] 08-28-2022 23:41-0400 Heart rate 74 /min DR FREDDIE BURRIS DO [facility] 08-28-2022 23:41-0400 Reason For Taking VItal Signs DR FREDDIE BURRIS DO [facility] 08-28-2022 23:41-0400 Respiratory rate 20 /min DR FREDDIE BURRIS DO [facility] 08-28-2022 23:41-0400 Systolic Blood Pressure Non-Invasive [address] FREDDIE BURRIS DO [facility] 08-11-2022 15:05-0400 Heart rate 60 /min DR NATE CROW MD [facility] 08-11-2022 15:05-0400 Respiratory rate 16 /min DR NATE CROW MD [address] 08-11-2022 09:58-0400 Blood Pressure Cuff Size DR NATE CROW MD [address] 08-11-2022 09:58-[address] NATE CROW MD [address] 08-11-2022 09:58-[address] NATE CROW MD [address] 08-11-2022 09:58-0400 Diastolic Blood Pressure Non-Invasive [address] NATE CROW MD [address] 08-11-2022 09:58-0400 Heart rate 60 /min DR NATE CROW MD [address] 08-11-2022 09:58-0400 Respiratory rate 16 /min DR NATE CROW MD [address] 08-11-2022 09:58-0400 Systolic Blood Pressure Non-Invasive [address] NATE CROW MD [facility] 08-11-2022 09:40-0400 Blood Pressure Cuff Size DR NTAE CROW MD [address] 08-11-2022 09:40-[address] NATE CROW MD [facility] 08-11-2022 09:40-[address] NATE CROW MD [address] 08-11-2022 09:40-0400 Diastolic Blood Pressure Non-Invasive [address] NATE CROW MD [address] [place] [id number] 08-11-2022 09:40-0400 Heart rate 56 /min DR NATE CROW MD [address] [place] [address] 08-11-2022 09:40-0400 Respiratory rate 16 /min DR NATE CROW MD [address] [place] [address] 08-11-2022 09:40-0400 Systolic Blood Pressure Non-Invasive [address] NATE CROW MD [address] [place] [address] 08-11-2022 09:28-0400 Diastolic Blood Pressure Non-Invasive [address] NATE CROW MD [address] [place] [address] 08-11-2022 09:28-0400 Systolic Blood Pressure Non-Invasive [address] NATE CROW MD [address] [place] [address] 08-11-2022 06:21-0400 Blood Pressure Cuff Size DR NATE CROW MD [address] [place] [address] 08-11-2022 06:21-[address] NATE CROW MD [address] [place] [address] 08-11-2022 06:21-[address] NATE CROW MD [address] [place] [address] 08-11-2022 06:21-0400 Body height [address] NATE CROW MD [address] [place] [address] 08-11-2022 06:21-0400 Body temperature 97.88 [degF] DR NATE CROW MD [address] [place] [address] 08-11-2022 06:21-0400 Body weight 102.[address] NATE CROW MD [address] [place] [address] 07-23-2022 16:34-0400 Body temperature 98.2 [degF] CUSHION SEWERRaiza Sutton CUSHION SEWER Work Phone: [facility] 07-23-2022 16:34-0400 Heart rate 66 /min C[employer] SE[employer]-Julian Sutton [employer] SE[employer] Work Phone: [facility] 07-23-2022 16:34-0400 Respiratory rate 15 /min [employer]-C Denisse Sutton [employer] SE[employer]ER Work Phone: [facility] 07-23-2022 16:34-0400 SaO2% (BldA) [Mass fraction] 96 % [employer]-C Denisse Sutton [employer] SE[employer]ER Work Phone: [facility] 07-23-2022 15:15-0400 Diastolic blood pressure 60 mm[Hg] [employer] SE[employer]-C Denisse Sutton CUSHION SE[employer]ER Work Phone: [facility] 07-23-2022 15:15-0400 Systolic blood pressure 131 mm[Hg] C[employer] SE[employer]-C Denisse Sutton CUSHION SEWER Work Phone: [facility] 07-23-2022 12:47-0400 Body height 157.48 cm [employer] SE[employer]-C Denisse Sutton CUSHION SEWER Work Phone: [facility] 07-23-2022 12:47-0400 Body weight 98.3 kg [employer] SE[employer]-C Denisse Sutton CUSHION SE[employer]ER Work Phone: [facility] 07-22-2022 18:59-0400 Body mass index (BMI) [Ratio] 39.6 kg/m2 [employer]-C Denisse Sutton [employer] Work Phone: [facility] 07-15-2022 14:43-0400 Heart rate 77 /min [employer]-C Denisse Sutton [employer] SE[employer] Work Phone: [facility] 07-15-2022 14:43-0400 Respiratory rate 21 /min [employer]-C Denisse Sutton C[employer] SE[employer]ER Work Phone: [facility] 07-15-2022 14:00-0400 SaO2% (BldA) [Mass fraction] 91 % [employer] SE[employer]-C Denisse Sutton C[employer]ION SE[employer]ER Work Phone: [facility] 07-15-2022 13:23-0400 Body temperature 98.3 [degF] C[employer] SE[employer]-C Denisse Sutton CUSHION SE[employer]ER Work Phone: [facility] 07-15-2022 13:23-0400 Diastolic blood pressure 74 mm[Hg] C[employer] SE[employer]-C Denisse Sutton C[employer]ION SE[employer]ER Work Phone: [facility] 07-15-2022 13:23-0400 Systolic blood pressure 134 mm[Hg] C[employer] SEWER-C Denisse Sutton CUSHION SEWER Work Phone: [facility] 07-15-2022 11:58-0400 Body height 154.94 cm C[employer] SE[employer]-C Denisse Sutton CUSHION SE[employer]ER Work Phone: [facility] 07-15-2022 11:58-0400 Body weight 101.4 kg [employer]-C Denisse Sutton [employer] SE[employer] Work Phone: [facility] 07-15-2022 06:00-0400 Body mass index (BMI) [Ratio] 42.2 kg/m2 [employer]-C Denisse Sutton [employer] SE[employer] Work Phone: [facility] 07-14-2022 12:30-0400 Inhaled oxygen flow rate 2 L/min C[employer] SE[employer]-Julian Sutton [employer] Work Phone: [facility] 07-12-2022 16:01-0400 Body temperature 97.5 [degF] [facility] 07-12-2022 16:01-0400 Diastolic blood pressure 66 mm[Hg] [facility] 07-12-2022 16:01-0400 Heart rate 61 /min [facility] 07-12-2022 16:01-0400 Respiratory rate 18 /min [facility] 07-12-2022 16:01-0400 SaO2% (BldA) [Mass fraction] 94 % [facility] 07-12-2022 16:01-0400 Systolic blood pressure 134 mm[Hg] [facility] 07-12-2022 12:54-0400 Body height 154.94 cm [facility] 07-12-2022 12:54-0400 Body mass index (BMI) [Ratio] 41.3 kg/m2 [facility] 07-12-2022 12:54-0400 Body weight 99.2 kg [facility] 07-08-2022 15:41-0400 Body height 155 cm DORIAN JAUREGUI MD [facility] 07-08-2022 15:41-0400 Body temperature 98.42 [degF] DORIAN JAUREGUI MD [facility] 07-08-2022 15:41-0400 Body weight 98 kg DORIAN JAUREGUI MD [facility] 07-08-2022 15:41-0400 Diastolic Blood Pressure Non-Invasive 63 [address] [facility] 07-08-2022 15:41-0400 Heart rate 63 /min DORIAN JAUREGUI MD [facility] 07-08-2022 15:41-0400 Systolic Blood Pressure Non-Invasive 115 [address] [facility] 02-25-2022 15:05-0500 Diastolic Blood Pressure Non-Invasive 78 1 JOSEKEVIN OKEEFE DO [facility] 02-25-2022 15:05-0500 Heart rate 59 /min JOSE OKEEFE DO [facility] 02-25-2022 15:05-0500 Systolic Blood Pressure Non-Invasive 126 1 JOSE OKEEFE DO [facility] 02-25-2022 14:30-0500 Diastolic Blood Pressure Non-Invasive 71 1 JOSE OKEEFE DO [facility] 02-25-2022 14:30-0500 Heart rate 60 /min JOSE OKEEFE DO [facility] 02-25-2022 14:30-0500 Systolic Blood Pressure Non-Invasive 140 1 JOSE OKEEFE DO [facility] 02-25-2022 14:10-0500 Diastolic Blood Pressure Non-Invasive 58 1 JOSE OKEEFE DO [facility] 02-25-2022 14:10-0500 Heart rate 55 /min JOSE DEGENFLOYD DO [facility] 02-25-2022 14:10-0500 Respiratory rate 16 /min JOSE DEGENHARD DO [facility] 02-25-2022 14:10-0500 Systolic Blood Pressure Non-Invasive 124 1 JOSE DEGENHARD DO [facility] 02-25-2022 13:40-0500 Heart rate 56 /min JOSE DEGENHARD DO [facility] 02-25-2022 13:40-0500 Respiratory rate 15 /min JOSE DEGENHARD DO [facility] 02-25-2022 13:25-0500 Heart rate 56 /min JOSE DEGENFLOYD DO [facility] 02-25-2022 13:25-0500 Respiratory rate 16 /min JOSE DEGENFLOYD DO [facility] 02-25-2022 09:05-0500 Body height 155 cm JOSE DEGENFLOYD DO [facility] 02-25-2022 09:05-0500 Body temperature 97.16 [degF] JOSE DEGENFLOYD DO [facility] 02-25-2022 09:05-0500 Body weight 95.9 kg JOSE DEGENHARD DO [facility] 02-25-2022 09:05-0500 Body weight 39.92 kg/m2 JOSE DEGENHARD DO [facility] 02-25-2022 09:05-0500 diastolic 67 mm[Hg] JOSE DEGENHARD DO [facility] 02-25-2022 09:05-0500 systolic 129 mm[Hg] JOSE DEGENHARD DO [facility] 12-15-2021 17:22-0400 Diastolic blood pressure 75 mm[Hg] RADHA HUMPHREYS MD [address] [place] [address] 12-15-2021 17:22-0400 Systolic blood pressure 131 mm[Hg] RADHA HUMPHREYS MD [address] 12-15-2021 15:07-0400 Heart rate 80 /min RADHA HUMPHREYS MD [address] [place] [address] 12-15-2021 15:07-0400 Respiratory rate 18 /min RADHA HUMPHREYS MD [address] [place] [address] 12-15-2021 14:55-0400 Body temperature 98.24 [degF] RADHA HUMPHREYS MD [address] [place] [address] 12-15-2021 14:55-0400 Diastolic blood pressure 80 mm[Hg] RADHA HUMPHREYS MD [address] [place] [address] 12-15-2021 14:55-0400 Heart rate 62 /min RADHA HUMPHREYS MD [address] 12-15-2021 14:55-0400 Respiratory rate 16 /min RADHA HUMPHREYS MD [address] 12-15-2021 14:55-0400 Systolic blood pressure 137 mm[Hg] RADHA HUMPHREYS MD [address] [place] [address] 12-15-2021 11:41-0400 Body temperature 98.06 [degF] RADHA HUMPHREYS MD [address] [place] [address] 12-15-2021 11:41-0400 Diastolic blood pressure 70 mm[Hg] RADHA HUMPHREYS MD [address] [place] [address] 12-15-2021 11:41-0400 Heart rate 61 /min RADHA HUMPHREYS MD [address] [place] [address] 12-15-2021 11:41-0400 Reason For Taking VItal Signs RADHA HUMPHREYS MD [address] [place] [address] 12-15-2021 11:41-0400 Respiratory rate 16 /min RADHA HUMPHREYS MD [address] [place] [address] 12-15-2021 11:41-0400 Systolic blood pressure 123 mm[Hg] RADHA HUMPHREYS MD [address] [place] [address] 12-15-2021 08:00-0400 Heart rate 58 /min RADHA HUMPHREYS MD [address] [place] [address] 12-15-2021 08:00-0400 Mean blood pressure 79 mm[Hg] RADHA HUMPHREYS MD [address] [place] [address] 12-15-2021 07:31-0400 Heart rate 85 /min RADHA HUMPHREYS MD [address] [place] [address] 12-15-2021 03:08-0400 Heart rate 61 /min RADHA HUMPHREYS MD [address] [place] [address] 12-15-2021 03:08-0400 Mean blood pressure 85 mm[Hg] RADHA HUMPHREYS MD [address] [place] [address] 12-15-2021 03:08-0400 Reason For Taking VItal Signs RADHA HUMPHREYS MD [address] [place] [address] 12-14-2021 19:20-0400 Mean blood pressure 86 mm[Hg] RADHA HUMPHREYS MD [address] [place] [address] 12-14-2021 15:28-0400 Body weight 97.4 kg RADHA HUMPHREYS MD [address] [place] [address] 12-14-2021 11:41-0400 Body weight 99.7 kg RADHA HUMPHREYS MD [address] [place] [id number] 12-14-2021 11:41-0400 Diastolic Blood Pressure NBP 60 1 RADHA HUMPHREYS MD [address] [place] [id number] 12-14-2021 11:41-0400 Systolic Blood Pressure NBP 127 1 RADHA HUMPHREYS MD [facility] 12-13-2021 17:24-0400 Body height 160 cm RADHA HUMPHREYS MD [facility] 12-13-2021 17:24-0400 Body weight 100 kg RADHA HUMPHREYS MD [facility] 12-13-2021 17:24-0400 Body weight 39.06 kg/m2 RADHA HUMPHREYS MD [facility] 12-13-2021 13:47-0400 Diastolic blood pressure 69 mm[Hg] EVELINA CURTIS MD [facility] 12-13-2021 13:47-0400 Heart rate 61 /min EVELINA CURTIS MD [facility] 12-13-2021 13:47-0400 Systolic blood pressure 141 mm[Hg] EVELINA CURTIS MD [facility] 12-13-2021 13:38-0400 Diastolic blood pressure 64 mm[Hg] EVELINA CURTIS MD [facility] 12-13-2021 13:38-0400 Heart rate 60 /min EVELINA CURTIS MD [facility] 12-13-2021 13:38-0400 Systolic blood pressure 135 mm[Hg] EVELINA CURTIS MD [facility] 12-13-2021 12:19-0400 Diastolic blood pressure 69 mm[Hg] EVELINA CURTIS MD [facility] 12-13-2021 12:19-0400 Heart rate 62 /min EVELINA CURTIS MD [facility] 12-13-2021 12:19-0400 Systolic blood pressure 159 mm[Hg] EVELINA CURTIS MD [facility] 12-13-2021 10:11-0400 Respiratory rate 22 /min EVELINA CURTIS MD [facility] 12-13-2021 07:14-0400 Respiratory rate 21 /min EVELINA CURTIS MD [facility] 12-13-2021 06:16-0400 Mean blood pressure 86 mm[Hg] EVELINA CURTIS MD [facility] 12-13-2021 06:16-0400 Respiratory rate 24 /min EVELINA CURTIS MD [facility] 12-13-2021 04:31-0400 Body temperature 99.32 [degF] EVELINA CURTIS MD [facility] 11-04-2021 14:50-0400 Body height [address] DEAN SHAH MD [facility] 11-04-2021 14:50-0400 Body temperature 98.06 [degF] DR DEAN SHAH MD [facility] 11-04-2021 14:50-0400 Body weight [address] DEAN SHAH MD [facility] 11-04-2021 14:50-0400 Diastolic blood pressure 79 mm[Hg] DR DEAN SHAH MD [facility] 11-04-2021 14:50-0400 Heart rate 68 /min DR DEAN SHAH MD [facility] 11-04-2021 14:50-0400 Respiratory rate 20 /min DR DEAN SHAH MD [facility] 11-04-2021 14:50-0400 Systolic blood pressure 154 mm[Hg] DR DEAN SHAH MD [facility] 08-30-2021 13:09-0400 Body height 160.02 cm Macarena S Luis Work Phone: DJ-Kcabfdyxat-Pee her Work Phone: 08-30-2021 13:09-0400 Body mass index (BMI) [Ratio] 37.73 kg/m2 Macarena S Luis Work Phone: SC-Kwhguayuuc-Rzx her Work Phone: 08-30-2021 13:09-0400 Body surface area Derived from formula 1.99 m2 Macarena S Luis Work Phone: MU-Bxxkhthufr-Brk her Work Phone: 08-30-2021 13:09-0400 Body temperature 97.7 [degF] Macarena S Luis Work Phone: IG-Mestmjtfys-Edx her Work Phone: 08-30-2021 13:09-0400 Body weight 96.62 kg Macarena S Luis Work Phone: LQ-Nmsfhheybi-Fyt her Work Phone: 08-30-2021 13:09-0400 Diastolic blood pressure 72 mm[Hg] Macarena S Luis Work Phone: VE-Lleypbrrxd-Xdu her Work Phone: 08-30-2021 13:09-0400 Heart rate 62 /min Macarena S Luis Work Phone: BL-Zmmexahwhl-Uxs her Work Phone: 08-30-2021 13:09-0400 SaO2% (BldA) [Mass fraction] 95 % Macarena S Luis Work Phone: QG-Vucinqyayi-Zhi her Work Phone: 08-30-2021 13:09-0400 Systolic blood pressure 116 mm[Hg] Macarena S Luis Work Phone: BL-Eovfgauers-Gks her Work Phone: 08-30-2021 13:09-0400 0 1 Macarena S Luis Work Phone: NF-Hjnmnsyoyi-Mom her Work Phone: Comment on above: [employer] 05-10-2018 13:52-0500 Body temperature 98.6 [degF] [facility] Comment on above: Performed By: #### UACUL #### [address] [address] 05-09-2018 17:45-0500 Body temperature 98.6 [degF] [facility] Comment on above: Performed By: #### CBCD #### [address] [address] 05-08-2018 17:35-0500 Body temperature 98.6 [degF] [facility] Comment on above: Performed By: #### ABG ####[address] [address] Encounters Encounter Date Encounter Type Care Provider Facility Start: 10-03-2024 ambulatory DENISSE SUTTON Facility :[facility] Start: 09-22-2024 ambulatory DENISSE SUTTON Facility :[facility] Start: 08-16-2024 End: 08-16-2024 ambulatory DENISSE SUTTON Facility[facility] Start: 08-16-2024 End: 08-16-2024 Patient encounter procedure DENISSE SUTTON ANIMAL FEEDER-WASTE PICKER [facility] Start: 07-31-2024 ambulatory Denisse Sutton [employer] Facil ity:[facility] Start: 07-31-2024 End: 08-02-2024 Evaluation and management of inpatient Georgina Gill Facility:[facility] Start: 07-31-2024 End: 07-31-2024 Emergency department patient visit TORRI MCCLAIN DO [facility] Start: 07-30-2024 End: 07-30-2024 Emergency department patient visit DR REENA LAMAS DO [facility] Start: 04-20-2024 End: 04-20-[address] NATE CROW MD Facility:[facility] Start: 04-20-2024 End: 04-20-[address] NATE CROW MD [facility] Start: 03-14-2024 End: 03-14-2024 Emergency department patient visit Denisse Sutton NP Facility:[facility] Start: 03-12-2024 End: 03-12-2024 Emergency department patient visit Denisse Sutton NP Facility:[facility] Start: 01-20-2024 End: 01-20-2024 ambulatory DENISSE SUTTON Facility:[facility] Start: 01-20-2024 End: 01-20-2024 Patient encounter procedure DENISSE SUTTON ANIMAL FEEDER-WASTE PICKER [facility] Start: 12-14-2023 ambulatory Jayaprakas Bárbara Facil ity:[facility] Start: 12-14-2023 End: 12-18-2023 Evaluation and management of inpatient Mahamed Shaun Facility:[facility] Start: 11-18-2023 ambulatory Denisse Sutton [employer] Facil ity:[facility] Start: 11-18-2023 End: 11-21-2023 Evaluation and management of inpatient Denisse Sutton [employer] SE[employer]ER Facility:[facility] Start: 11-18-2023 End: 11-18-2023 Emergency department patient visit EVELINA CURTIS MD [facility] Start: 11-05-2023 End: 11-05-2023 ambulatory DENISSE SUTTON ANIMAL FEEDER-WASTE P[employer]ER Facility:[facility] Start: 11-05-2023 End: 11-05-2023 Patient encounter procedure DENISSE SUTTON ANIMAL FEEDER-WASTE PICKER [facility] Start: 10-14-2023 ambulatory DENISSE SUTTON ANIMAL FEEDER-WASTE PICKER Facility:[facility] Start: 10-11-2023 End: 10-11-2023 Emergency department patient visit DR FREDDIE BURRIS DO [facility] Start: 10-09-2023 ambulatory DENISSE SUTTON ANIMAL FEEDER-WASTE PICKER Facility:[facility] Start: 09-10-2023 ambulatory DENISSE SUTTON ANIMAL FEEDER-WASTE PICKER Facility:[facility] Start: 09-08-2023 ambulatory JEREMY DICKINSON MD Facility:[id number] Start: 09-08-2023 End: 09-08-2023 Subsequent hospital visit by physician Jeremy Dickinson MD Work Phone: MR INTERVENTIONAL RADIOLOGY Comment on above: Chronic kidney disea se, unspecified CKD stage [N18.9] Start: 09-02-2023 End: 09-02-[address] NATE CROW MD Facility:[facility] Start: 09-02-2023 End: 09-02-[address] NATE CROW MD [facility] Start: 07-17-2023 Non-patient / Non-visit C[employer] SEWER-C Denisse Sutton [employer] SE[employer] Work Phone: [facility] Start: 07-17-2023 End: 07-17-2023 ambulatory CUSHION SEWER-C Denisse Sutton [employer]ION SEWER Work Phone: [facility] Work Phone: Start: 07-17-2023 End: 07-17-2023 Patient encounter procedure CUSHION SEWER-C Denisse Sutton [employer] SE[employer]ER Work Phone: [facility]-Cardiovascular Services Work Phone: Start: 07-01-2023 End: 07-01-2023 Patient encounter procedure CUSHION SEWER-Julian Sutton C[employer] SEWER Work Phone: [facility] Work Phone: Start: 05-27-2023 End: 05-27-2023 Patient encounter procedure CUSHION SEWER-C Denisse Sutton [employer] SE[employer] Work Phone: [facility] Work Phone: Start: 05-26-2023 End: 05-26-[address] NATE CROW MD Facility:[facility] Start: 05-26-2023 End: 05-26-[address] NATE CROW MD [facility] Start: 05-01-2023 End: 05-01-2023 Patient encounter procedure CUSHION SEWER-C Denisse Sutton [employer] SEWER Work Phone: [facility]-Pre-Admission Testing Work Phone: Start: 04-29-2023 End: 05-03-2023 ambulatory DENISSE SUTTON ANIMAL FEEDER-WASTE PICKER Facility:[facility] Start: 04-29-2023 End: 05-03-2023 Outreach Lab DENISSE SUTTON ANIMAL FEEDER-WASTE PICKER [facility] Start: 04-27-2023 Non-patient / Non-visit CUSHION SEWER-C Denisse Sutton C[employer] SEWER Work Phone: [facility] Start: 04-27-2023 End: 04-27-2023 Admission to same day surgery center CUSH[employer] SEWER-C Denisse Sutton C[employer]ION SEWER Work Phone: [facility]-Surgical Day Care Start: 04-27-2023 End: 04-27-2023 ambulatory CUSHION SEWER-C Denisse Sutton C[employer] SEWER Work Phone: [facility] Work Phone: Start: 04-24-2023 End: 04-24-2023 ambulatory CUSHION SEWER-C Denisse Sutton [employer] SE[employer]ER Work Phone: [facility] Work Phone: Start: 04-24-2023 End: 04-24-2023 Patient encounter procedure CUSH[employer] SEWER-C Denisse Sutton C[employer]ION SE[employer]ER Work Phone: [facility]-Laboratory Work Phone: Start: 04-15-2023 End: 04-15-2023 Patient encounter procedure CUSHION SEWER-C Denisse Sutton [employer] SE[employer]ER Work Phone: [facility] Surgery Work Phone: Start: 02-24-2023 ambulatory DENISSE SUTTON ANIMAL FEEDER-WASTE PICKER Facility:[facility] Start: 02-11-2023 End: 02-11-2023 Patient encounter procedure CUSHION SEWER-C Denisse Sutton C[employer] SE[employer] Work Phone: [facility] Work Phone: Start: 01-22-2023 Non-patient / Non-visit CUSHION SEWER-C Denisse Sutton CUSHION SEWER Work Phone: [facility] Start: 01-22-2023 End: 01-22-2023 Admission to same day surgery center CUSHION SEWER-C Denisse Sutton [employer]ION SEWER Work Phone: [facility]-Patient Attendant/Special Procedures Work Phone: Start: 01-22-2023 End: 01-22-2023 ambulatory CUSHION SEWER-C Denisse Sutton C[employer] SEWER Work Phone: [facility] Work Phone: Start: 01-20-2023 End: 01-20-2023 ambulatory DENISSE SUTTON ANIMAL FEEDER-WASTE PICKER Facility:[facility] Start: 01-20-2023 End: 01-20-2023 Patient encounter procedure DENISSE SUTTON ANIMAL FEEDER-WASTE PICKER [facility] Start: 12-17-2022 Non-patient / Non-visit CUSHION SEWER-C Denisse Sutton C[employer] SEWER Work Phone: [facility] Start: 12-17-2022 End: 12-17-2022 ambulatory CUSHION SEWER-C Denisse Sutton CUSHION SEWER Work Phone: [facility] Work Phone: Start: 12-17-2022 End: 12-17-2022 Patient encounter procedure CUSHION SEWER-Julian Sutton C[employer]ION SEWER Work Phone: [facility]-Cardiovascular Services Work Phone: Start: 12-10-2022 End: 12-10-2022 Patient encounter procedure CUSHION SEWER-Julian Sutton C[employer]ION SEWER Work Phone: [facility] V[facility] Surgery Work Phone: Start: 11-18-2022 End: 11-18-2022 SAME DAY STAY LEE CASH MD [facility] Start: 11-10-2022 End: 11-10-2022 Emergency department patient visit CALDERON PHAN DO [facility] Start: 10-23-2022 End: 10-24-[address] TOÑITO COVINGTON MD [facility] Start: 08-28-2022 End: 08-29-2022 Emergency department patient visit DR FREDDIE BURRIS DO [facility] Start: 08-11-2022 End: 08-11-[address] NATE CROW MD [facility] Start: 08-06-2022 End: 08-06-[address] NATE CROW MD [facility] Start: 07-23-2022 Non-patient / Non-visit CUSHION SEWER-Julian Sutton CUSHION SEWER Work Phone: [facility] Start: 07-22-2022 Non-patient / Non-visit CUSHION SEWER-C Denisse Sutton CUSHION SEWER Work Phone: [facility] Phys[facility] Start: 07-22-2022 End: 07-23-2022 Evaluation and management of inpatient CUSHION SEWER-C Denisse Sutton CUSHION SEWER Work Phone: [facility]-Progressive Care Unit Start: 07-22-2022 End: 07-23-2022 observation encounter CUSHION SEWER-C Denisse Sutton C[employer]ION SEWER Work Phone: [facility] Work Phone: Start: 07-15-2022 Non-patient / Non-visit CUSHION SEWER-C Denisse Sutton C[employer] SEWER Work Phone: [facility] Start: 07-14-2022 Non-patient / Non-visit CUSHION SEWER-C Denisse Sutton CUSHION SEWER Work Phone: [facility] Start: 07-13-2022 Non-patient / Non-visit CUSHION SEWER-C Denisse Sutton CUSHION SEWER Work Phone: [facility] Start: 07-12-2022 Non-patient / Non-visit CUSHION SEWER-C Denisse Sutton C[employer]ION SEWER Work Phone: [facility] Start: 07-12-2022 End: 07-15-2022 Evaluation and management of inpatient [facility]Medical Surgical 3 Start: 07-08-2022 End: 07-08-2022 Emergency department patient visit DORIAN JAUREGUI MD [facility] Start: 04-15-2022 End: 04-19-2022 Outreach Lab DENISSE SUTTON ANIMAL FEEDER-WASTE PICKER [facility] Start: 02-25-2022 End: 02-25-2022 SAME DAY STAY JOSE OKEEFE DO [facility] Start: 01-22-2022 End: 01-22-2022 Patient encounter procedure DENISSE SUTTON ANIMAL FEEDER-WASTE PICKER [facility] Start: 01-22-2022 End: 01-22-[address] NATE CROW MD [facility] Start: 01-10-2022 End: 01-10-[address] NATE CROW MD [facility] Start: 12-13-2021 End: 12-15-2021 Evaluation and management of inpatient RADHAMELLY HUMPHREYS MD [facility] Start: 12-13-2021 End: 12-13-2021 Emergency department patient visit EVELINA CURTIS MD [facility] Start: 12-11-2021 End: 12-15-2021 Outreach Lab MONICA CANDELARIO ANIMAL FEEDER-WASTE PICKER [facility] Start: 12-11-2021 End: 12-11-2021 Patient encounter procedure MONICA CANDELARIO ANIMAL FEEDER-WASTE PICKER [facility] Start: 12-11-2021 End: 12-11-[address] NATE CROW MD [facility] Start: 11-22-2021 End: 11-22-2021 Patient encounter procedure DENISSE SUTTON ANIMAL FEEDER-WASTE P[employer]ER [facility] Start: 11-04-2021 End: 11-04-2021 Emergency department patient visit DR DEAN SHAH MD [facility] Start: 10-10-2021 End: 10-10-2021 Patient encounter procedure DENISSE SUTTON ANIMAL FEEDER-WASTE P[employer]ER [facility] Start: 09-13-2021 End: 09-13-2021 Patient encounter procedure DENISSE SUTTON ANIMAL FEEDER-WASTE [employer]ER [facility] Start: 08-30-2021 Patient encounter procedure Macarena S Luis Work Phone: PO-Jghyrvzkfz-Kpjcau Work Phone: Start: 07-31-2021 End: 07-31-2021 Patient encounter procedure DENISSE SUTTON ANIMAL FEEDER-WASTE [employer]ER [facility] Start: 01-10-2021 End: 01-10-2021 Patient encounter procedure BOBBY MONTEJO MD [facility] Start: 01-08-2021 End: 01-08-2021 Patient encounter procedure BOBBY MONTEJO MD [facility] Start: 06-16-2018 End: 06-16-2018 Patient encounter procedure [facility] Patient encounter status Macarena S Luis Work Phone: TQ-Zodmmgwtfm-Ucalab Work Phone: Procedures Date Procedure Procedure Detail Performing Clinician Start: 09-08-2023 End: 09-08-2023 Rmvl tamika cvc w/o subq port/meat cooler Jeremy Dickinson MD Work Phone: Start: 04-27-2023 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 CUSHION SEWER-C Denisse Sutton CUSHION SEWER Work Phone: Start: 03-30-2023 Fistula (morphologic abnormality) DENISSE SUTTON ANIMAL FEEDER-WASTE PICKER Start: 07-22-2022 MRI of brain without contrast CUSHION SEWER-C Denisse Sutton CUSHION SEWER Work Phone: Start: 07-22-2022 Plain chest X-ray CUSHION SEWER-C Denisse Sutton CUSHION SEWER Work Phone: Start: 07-22-2022 CT of head without contrast CUSHION SEWER-C Denisse Sutton CUSHION SEWER Work Phone: Start: 07-12-2022 Plain chest X-ray Start: 07-12-2022 CT cervical spine wi thout contrast Start: 07-12-2022 CT of face Start: 07-12-2022 CT of head without contrast Start: 03-30-2022 Cholecystectomy DENISSE SUTTON ANIMAL FEEDER-WASTE PICKER Start: 01-22-2022 Echocardiography JT ANDUJARFLOYD DO Start: 01-10-2022 Cardiovascular stres s testing JOSE OKEEFE DO Start: 05-27-2021 Cardiac catheterization DENISSE SUTTON ANIMAL FEEDER-WASTE PICKER Comment on above: [place] Start: 04-19-2021 Cardiovascular stres s testing DENISSE SUTTON ANIMAL FEEDER-WASTE PICKER Comment on above: [place] Start: 03-30-2021 Fistula (morphologic abnormality) DENISSE SUTTON ANIMAL FEEDER-WASTE PICKER Start: 01-21-2021 Echocardiography MICHELLESE Rosalinda SUTTON ANIMAL FEEDER-WASTE PICKER Comment on above: [place] Start: 08-21-2020 Doppler ultrasonogra phy of bilateral carotid arteries DENISSE SUTTON ANIMAL FEEDER-WASTE PICKER Start: 06-15-2018 Lipid 1996 panel - S brigitte or Plasma Jeremy Aguirre MD, MD Work Phone: Start: 05-10-2018 Electrocardiogram Start: 05-08-2018 Electrocardiogram Start: 06-28-2016 History of placement of stent for coronary artery disease History of coronary artery stent placement Appendectomy BOBBY MONTEJO MD Appendectomy Macarena Smith Work Phone: section Macarena Smith Work Phone: History of placement of stent for coronary artery disease H/O heart artery stent Macarena Smith Work Phone: Investigation of tra nsfusion reaction CUSHION SEWER-C Denisse Sutton CUSHION SEWER Work Phone: Knee Surgery Macarena Smith Work Phone: Legionella pneumophi la antigen assay CUSHION SEWER-C Denisse Sutton CUSHION SEWER Work Phone: Other bilateral liga tion and division of fallopian tubes Macarena Smith Work Phone: Respiratory microbia l culture CUSHION SEWER-C Denisse Sutton CUSHION SEWER Work Phone: SARS-CoV-2 & FLU Ant igen (Rapid) Stent, device (physi heather object) BOBBY MONTEJO MD Comment on above: cardiac x 5 Streptococcus pneumo niae Antigen (M CUSHION SEWER-Julian Sutton CUSHION SEWER Work Phone: Plan of Treatment Date Care Activity Detail Author Start: 03-04-2027 Urine microalbumin profile DTaP,Tdap,Td Vaccine (3 - Td or Tdap) [facility] Start: 08-30-2024 Diabetes Screening Diabetes Screening [facility] Start: 11-29-2023 Influenza vaccination Influenza Vaccine (Season Ended) [facility] Start: 06-16-2023 Lipid panel Lipid Screening [facility] Start: 04-27-2023 Anesthesia vascular shunt/shunt revision ANESTH VASCULAR SHUNT SURG [facility] Start: 04-27-2023 Arven anast opn upr arm cephalic vein trpos AV FUSE UPPR ARM CEPHALIC [facility] Start: 04-27-[address] [facility] Start: 04-27-[address] [facility] Start: 03-30-2023 Behavioral Health Screening Behavioral Health Screening [facility] Start: 01-22-[address] [facility] Start: 11-28-2022 Covid-19 Vaccine ( season) Covid-19 Vaccine () [facility] Start: 07-23-[address] [facility] Start: 07-22-[address] [facility] Start: 07-22-[address] [facility] Start: 07-22-2022 Assessment of risk of venous thromboembolism [facility] Start: 07-22-2022 Care regimes management [facility] Start: 07-22-2022 Catheterization of vein [facility] Start: 07-22-2022 Insertion of catheter into peripheral vein [facility] Start: 07-22-2022 Measuring intake and output [facility] Start: 07-22-2022 Providing care according to standard [facility] Start: 07-22-2022 End: 07-22-2022 [facility] Start: 07-22-[address] [facility] Start: 07-22-2022 Following clinical pathway protocol [facility] Start: 07-22-2022 Patient referral to dietitian [facility] Start: 07-15-[address] [facility] Start: 07-14-2022 [facility] Start: 07-13-2022 Referral to senior sql database developer [facility] Start: 07-12-2022 Following clinical pathway protocol [facility] Start: 07-12-2022 Assessment of risk of venous thromboembolism [facility] Start: 07-12-2022 Bacteria identified in Sputum by Culture [facility] Start: 07-12-2022 Care regimes management [facility] Start: 07-12-2022 Catheterization of vein [facility] Start: 07-12-[address] [facility] Start: 07-12-2022 Insertion of catheter into peripheral vein [facility] Start: 07-12-[address] [facility] Start: 07-12-2022 Providing care according to standard [facility] Start: 07-12-2022 Provision of activity privileges [facility] Start: 07-12-2022 Referral to occupational therapist [facility] Start: 07-12-[address] [facility] Start: 07-12-[address] [facility] Start: 07-12-2022 [facility] Start: 07-12-2022 Legionella pneumophila Ag [Presence] in Urine [facility] Start: 07-12-2022 Streptococcus pneumoniae antigen assay [facility] Start: 07-12-[address] [facility] Start: 07-12-[address] [facility] Start: 01-26-2019 Screening for malignant neoplasm of breast Mammogram Screening [facility] Start: 12-23-2015 Shingrix Vaccine (1 of 2) Shingrix Vaccine (1 of 2) [facility] Start: 2010 Screening for malignant neoplasm of colon [facility] Start: 1986 Screening for malignant neoplasm of cervix Cervical Cancer Screening [facility] Start: 1984 Hepatitis B Vaccine (1 of 3 - 19+ 3-dose series) Hepatitis B Vaccine (1 of 3 - 19+ 3-dose series) [facility] Start: 12-23-1983 HIV screening HIV Screening [facility] Bilirubin measuremen t, urine [facility] Hematocrit [Volume Fraction] of Blood [facility] Hemoglobin [Mass/vol ume] in Blood [facility] Hemoglobin [Presence ] in Urine [facility] Leukocytes [#/volume ] in Blood [facility] Mean corpuscular hem oglobin concentration determination [facility] Mean corpuscular hem oglobin determination [facility] Measurement of keton es in urine using dipstick [facility] Microscopic urinalysis [facility] Neutrophil count [facility] Neutrophil percent differential count [facility] Patient referral [facility] Work Phone: pH of Urine [facility] Platelets [#/volume] in Blood [facility] Red blood cell count [facility] Red cell distributio n width determination [facility] Specific gravity of Urine [facility] Urinalysis, blood, qualitative [facility] Urine dipstick for glucose [facility] Urine dipstick for leukocyte esterase [facility] Urine dipstick for nitrite W [facility] Urine dipstick for protein W [facility] Urine examination [facility] Urine microscopy: epithelial cells [facility] Urine Microscopy: wh ite cells [facility] Urobilinogen [Presen ce] in Urine [facility] Immunizations Immunization Date Immunization Notes Care Provider Fa cility 04-11-2021 COVID-19, mRNA, LNP- S, PF, 30 mcg/0.3 mL dose; Translations: [Pfizer-BioNTech COVID-19 Vaccine] DENISSE SUTTON ANIMAL FEEDER-[facility] 03-21-2021 COVID-19, mRNA, LNP- S, PF, 30 mcg/0.3 mL dose; Translations: [Pfizer-BioNTech COVID-19 Vaccine] DENISSE SUTTON ANIMAL FEEDERXMS [facility] 04-22-2017 pneumococcal polysaccharide vaccine, 23 valent DENISSE SUTTON ANIMAL FEEDER-[facility] 03-04-2017 tetanus toxoid, redu benito diphtheria toxoid, and acellular pertussis vaccine, adsorbed DENISSE SUTTON ANIMAL FEEDERXMS [facility] Payers Date Payer Category Payer Unknown 2023 Self-pay [id number] 2023 Unknown [id number] 2021 Medicaid [id number] 2021 Medicaid [id number] 2021 Unknown [id number] 2020 Unknown [id number] 2020 Medicare [id number] 2020 Private Health Insurance [id number] 1965 Unknown [id number] 1965 Unknown [id number]. 1965 Unknown [id number]. 1965 Unknown [id number]. 1965 Unknown [id number]. 1965 Unknown [id number]. 1965 Unknown [id number]. 1965 Unknown [id number]. 1965 Unknown [id number] [id number]. 1965 Unknown [id number] 2.16.840.1.284409.3.579.2. 1965 Unknown [id number] 2.16.840.1.268430.3.579.2.62 1965 Unknown [id number] 2.16.840.1.047715.3.579.2.627 1965 Unknown [id number] 2.16840.1.899738.3.579.2.627 1965 Unknown [id number] 2.16840.1.331737.3.579.2.627 1965 Unknown [id number] 2.16840.1.191352.3.579.2.62 1965 Unknown [id number] 2.16840.1.371332.3.579.2.62 1965 Unknown [id number] 2.840.1.759444.3.579.2.62 1965 Unknown [id number] 2.840.1.362817.3.579.2.627 Medicare MEDICARE PART A B [id number] Unknown [id number] Unknown [id number] 2.16840.1.666189.3.579.2.462 Unknown [id number] 2.16840.1.032515.3.579.2.462 Unknown [id number] 2.16840.1.097215.3.579.2.462 Unknown [id number] 2.16840.1.630784.3.579.2.462 Unknown [id number] 2.16840.1.965466.3.579.2.462 Unknown [id number] 2.16840.1.681033.3.579.2.462 Unknown [id number] 2.16840.1.447971.3.579.2.462 Unknown [id number] 2.16840.1.682951.3.579.2.462 Unknown [id number] 2.16840.1.542618.3.579.2.462 Unknown [id number] 2.16.840.1.149121.3.579.2.462 Unknown [id number] 2.16.840.1.725353.3.579.2.462 Unknown [id number] 2.16.840.1.281684.3.579.2.462 Unknown [id number] 2.16.840.1.006033.3.579.2.462 Unknown [id number] 2.16.840.1.605345.3.579.2.462 Unknown [id number] 2.16.840.1.984216.3.579.2.462 Unknown [id number] 2.16.840.1.239108.3.579.2.462 Unknown [id number] 2.16.840.1.179798.3.579.2.462 Unknown [id number] 2.16.840.1.956483.3.579.2.462 Unknown [id number] 2.16.840.1.381778.3.579.2.462 Unknown [id number] 2.16.840.1.470769.3.579.2.462 Unknown [id number] 2.16.840.1.227023.3.579.2.462 Social History Date Type Detail Facility Start: 08-09-2020 Never smoked t obacco (finding) [facility] Start: 1965 Sex Assigned At Female A [facility] Start: 03-05-2012 End: 09-08-2023 Never smoker Never smoker [facility] Work Phone: Start: 10-29-2021 End: 08-16-2024 Tobacco smoking status Ex-smoker (finding) [facility] Comment on above: quit 30 years ago Start: 07-12-2022 End: 04-23-2023 Tobacco smoking status NHIS Unknown if ever smoked [facility] Start: 11-27-2019 None [facility] Start: 11-27-2019 With Family [facility] Start: 05-04-2019 Non-smoker [facility] History of tobacco use Current smoker [facility] History of tobacco use Cigarette Smoker [facility] Start: 03-05-2012 Tobacco use and exposure Former smokeless tobacco user [facility] End: 12-04-1998 History of tobacco use User of smokeless tobacco [facility] Start: 07-09-2012 Alcohol intake Not Asked [facility] Start: 09-08-2023 Area Deprivation Index [facility] National Score (1-100), lower number is lower risk 67 [facility] Start: 1965 Sex Assigned At Not on file C [facility] Sexual Orientation [facility] Start: 06-02-2019 Sex Female (finding) [facility] NEGATED: Highlighted row Denies Alcohol Denies Alcohol [facility] Work Phone: NEGATED: Highlighted row [facility] Medical Equipment Procedure Code Equipment Code Equipment Origin al Text Equipment Identifier Dates Total cholecystectomy with exploration of common bile duct CLIP,POLA GREENE FDA Start: 05-05-2019 Total cholecystectomy with exploration of common bile duct CLIP,POLA GREENE FDA Start: 05-05-2019 Total cholecystectomy with exploration of common bile duct CLIP,POLA GREENE FDA Start: 05-05-2019 Total cholecystectomy with exploration of common bile duct CLIP,HEMMARITA GREENE FDA Start: 05-05-2019 Total cholecystectomy with exploration of common bile duct CLIP,HEMMARITA GREENE FDA Start: 05-05-2019 Total cholecystectomy with exploration of common bile duct CLIP,HEMMARITA GREENE FDA Start: 05-05-2019 Total cholecystectomy with exploration of common bile duct CLIP,HEMMARITA GREENE FDA Start: 05-05-2019 Total cholecystectomy with exploration of common bile duct CLIP,HEMMARITA GREENE FDA Start: 05-05-2019 Creation, AV fistula, using vein transposition technique SUTURE,LIGA CLIP MED [id number] FDA Start: 03-28-2021 Creation, AV fistula, using vein transposition technique SUTURE,LIGA CLIP MED [id number] FDA Start: 03-28-2021 Creation, AV fistula, using vein transposition technique SUTURE,LIGA CLIP SM LT-100 FDA Start: 03-28-2021 Creation, AV fistula, using vein transposition technique SUTURE,LIGA CLIP SM LT-100 FDA Start: 03-28-2021 Creation, AV fistula, using vein transposition technique SUTURE,LIGA CLIP SM LT-100 FDA Start: 03-28-2021 Creation, AV fistula, using vein transposition technique SUTURE,LIGA CLIP SM LT-100 FDA Start: 03-28-2021 Creation, AV fistula, using vein transposition technique SUTURE,LIGA CLIP SM LT-100 FDA Start: 03-28-2021 Creation, AV fistula, using vein transposition technique SUTURE,LIGA CLIP MED [id number] FDA Start: 03-28-2021 Creation, AV fistula, using vein transposition technique SUTURE,LIGA CLIP MED [id number] FDA Start: 03-28-2021 Creation, AV fistula, using vein transposition technique SUTURE,LIGA CLIP SM LT-100 FDA Start: 03-28-2021 Creation, AV fistula, using vein transposition technique SUTURE,LIGA CLIP SM LT-100 FDA Start: 03-28-2021 Creation, AV fistula, using vein transposition technique SUTURE,LIGA CLIP SM LT-100 FDA Start: 03-28-2021 Creation, AV fistula, using vein transposition technique SUTURE,LIGA CLIP SM LT-100 FDA Start: 03-28-2021 Creation, AV fistula, using vein transposition technique SUTURE,LIGA CLIP SM LT-100 FDA Start: 03-28-2021 Creation, AV fistula, using vein transposition technique SUTURE,LIGA CLIP MED [id number] FDA Start: 03-28-2021 Creation, AV fistula, using vein transposition technique SUTURE,LIGA CLIP MED [id number] FDA Start: 03-28-2021 Creation, AV fistula, using vein transposition technique SUTURE,LIGA CLIP SM LT-100 FDA Start: 03-28-2021 Creation, AV fistula, using vein transposition technique SUTURE,LIGA CLIP SM LT-100 FDA Start: 03-28-2021 Creation, AV fistula, using vein transposition technique SUTURE,LIGA CLIP SM LT-100 FDA Start: 03-28-2021 Creation, AV fistula, using vein transposition technique SUTURE,LIGA CLIP SM LT-100 FDA Start: 03-28-2021 Creation, AV fistula, using vein transposition technique SUTURE,LIGA CLIP SM LT-100 FDA Start: 03-28-2021 Creation, AV fistula, using vein transposition technique SUTURE,LIGA CLIP MED [id number] FDA Start: 03-28-2021 Creation, AV fistula, using vein transposition technique SUTURE,LIGA CLIP MED LT200 FDA Start: 03-28-2021 Creation, AV fistula, using vein transposition technique SUTURE,LIGA CLIP SM LT-100 FDA Start: 03-28-2021 Creation, AV fistula, using vein transposition technique SUTURE,LIGA CLIP SM LT-100 FDA Start: 03-28-2021 Creation, AV fistula, using vein transposition technique SUTURE,LIGA CLIP SM LT-100 FDA Start: 03-28-2021 Creation, AV fistula, using vein transposition technique SUTURE,LIGA CLIP SM LT-100 FDA Start: 03-28-2021 Creation, AV fistula, using vein transposition technique SUTURE,LIGA CLIP SM LT-100 FDA Start: 03-28-2021 Creation, AV fistula, using vein transposition technique SUTURE,LIGA CLIP MED LT200 FDA Start: 03-28-2021 Creation, AV fistula, using vein transposition technique SUTURE,LIGA CLIP MED LT200 FDA Start: 03-28-2021 Creation, AV fistula, using vein transposition technique SUTURE,LIGA CLIP SM LT-100 FDA Start: 03-28-2021 Creation, AV fistula, using vein transposition technique SUTURE,LIGA CLIP SM LT-100 FDA Start: 03-28-2021 Creation, AV fistula, using vein transposition technique SUTURE,LIGA CLIP SM LT-100 FDA Start: 03-28-2021 Creation, AV fistula, using vein transposition technique SUTURE,LIGA CLIP SM LT-100 FDA Start: 03-28-2021 Creation, AV fistula, using vein transposition technique SUTURE,LIGA CLIP SM LT-100 FDA Start: 03-28-2021 Creation, AV fistula, using vein transposition technique SUTURE,LIGA CLIP MED LT200 FDA Start: 03-28-2021 Creation, AV fistula, using vein transposition technique SUTURE,LIGA CLIP MED LT200 FDA Start: 03-28-2021 Creation, AV fistula, using vein transposition technique SUTURE,LIGA CLIP SM LT-100 FDA Start: 03-28-2021 Creation, AV fistula, using vein transposition technique SUTURE,LIGA CLIP SM LT-100 FDA Start: 03-28-2021 Creation, AV fistula, using vein transposition technique SUTURE,LIGA CLIP SM LT-100 FDA Start: 03-28-2021 Creation, AV fistula, using vein transposition technique SUTURE,LIGA CLIP SM LT-100 FDA Start: 03-28-2021 Creation, AV fistula, using vein transposition technique SUTURE,LIGA CLIP SM LT-100 FDA Start: 03-28-2021 Creation, AV fistula, using vein transposition technique SUTURE,LIGA CLIP MED LT200 FDA Start: 03-28-2021 Creation, AV fistula, using vein transposition technique SUTURE,LIGA CLIP MED LT200 FDA Start: 03-28-2021 Creation, AV fistula, using vein transposition technique SUTURE,LIGA CLIP SM LT-100 FDA Start: 03-28-2021 Creation, AV fistula, using vein transposition technique SUTURE,LIGA CLIP SM LT-100 FDA Start: 03-28-2021 Creation, AV fistula, using vein transposition technique SUTURE,LIGA CLIP SM LT-100 FDA Start: 03-28-2021 Creation, AV fistula, using vein transposition technique SUTURE,LIGA CLIP SM LT-100 FDA Start: 03-28-2021 Creation, AV fistula, using vein transposition technique SUTURE,LIGA CLIP SM LT-100 FDA Start: 03-28-2021 Creation, AV fistula, using vein transposition technique SUTURE,LIGA CLIP MED LT200 FDA Start: 03-28-2021 Creation, AV fistula, using vein transposition technique SUTURE,LIGA CLIP MED LT200 FDA Start: 03-28-2021 Creation, AV fistula, using vein transposition technique SUTURE,LIGA CLIP SM LT-100 FDA Start: 03-28-2021 Creation, AV fistula, using vein transposition technique SUTURE,LIGA CLIP SM LT-100 FDA Start: 03-28-2021 Creation, AV fistula, using vein transposition technique SUTURE,LIGA CLIP SM LT-100 FDA Start: 03-28-2021 Creation, AV fistula, using vein transposition technique SUTURE,LIGA CLIP SM LT-100 FDA Start: 03-28-2021 Creation, AV fistula, using vein transposition technique SUTURE,LIGA CLIP SM LT-100 FDA Start: 03-28-2021 Creation, AV fistula Ligation cl ip, metallic [id number] FDA Start: 04-27-2023 Creation, AV fistula Ligation cl ip, metallic ()[id number] FDA Start: 04-27-2023 Creation, AV fistula Ligation cl ip, metallic [id number] FDA Start: 04-27-[address] Strips Start: 05-23-2020 Lancets Start: 05-23-2020 See Instructions , 1 bottle of 100 ---Test 4times/day--Pt has accucheck guide dx E11.9 Pt insulin dependent., # 1 EA, 11 Refill(s), Pharmacy: [facility], 160, cm, 05/10/20 8:54:00 EST, Height, 98.6, kg, 05/10/20 8:54:00 EST, Dosing Weight Start: 05-23-2020 See Instructions , qs 1 month supply--test four times daily--has accucheck guide dx E11.9, insulin dependent, # 1 EA, 11 Refill(s), Pharmacy: [facility], 160, cm, 05/10/20 8:54:00 EST, Height, 98.6, kg, 05/10/20 8:54:00 EST, Dosing Weight Start: 05-23-2020 See Instructions , 1 bottle of 100 ---Test 4times/day--Pt has accucheck guide dx E11.9 Pt insulin dependent., # 1 EA, 11 Refill(s), Pharmacy: [facility], 160, cm, 05/10/20 8:54:00 EST, Height, 98.6, kg, 05/10/20 8:54:00 EST, Dosing Weight Start: 05-23-2020 See Instructions , qs 1 month supply--test four times daily--has accucheck guide dx E11.9, insulin dependent, # 1 EA, 11 Refill(s), Pharmacy: [facility], 160, cm, 05/10/20 8:54:00 EST, Height, 98.6, kg, 05/10/20 8:54:00 EST, Dosing Weight Start: 02-24-[address] Strips Start: 05-23-2020 Lancets Start: 05-23-2020 See Instructions , 1 bottle of 100 ---Test 4times/day--Pt has accucheck guide dx E11.9 Pt insulin dependent., # 1 EA, 11 Refill(s), Pharmacy: [facility], 160, cm, 05/10/20 8:54:00 EST, Height, 98.6, kg, 05/10/20 8:54:00 EST, Dosing Weight Start: 05-23-2020 See Instructions , qs 1 month supply--test four times daily--has accucheck guide dx E11.9, insulin dependent, # 1 EA, 11 Refill(s), Pharmacy: [facility], 160, cm, 05/10/20 8:54:00 EST, Height, 98.6, kg, 05/10/20 8:54:00 EST, Dosing Weight Start: 05-23-2020 See Instructions , 1 bottle of 100 ---Test 4times/day--Pt has accucheck guide dx E11.9 Pt insulin dependent., # 1 EA, 11 Refill(s), Pharmacy: [facility], 160, cm, 05/10/20 8:54:00 EST, Height, 98.6, kg, 05/10/20 8:54:00 EST, Dosing Weight Start: 05-23-2020 See Instructions , qs 1 month supply--test four times daily--has accucheck guide dx E11.9, insulin dependent, # 1 EA, 11 Refill(s), Pharmacy: [facility], 160, cm, 05/10/20 8:54:00 EST, Height, 98.6, kg, 05/10/20 8:54:00 EST, Dosing Weight Start: 05-23-2020 See Instructions , 1 bottle of 100 ---Test 4times/day--Pt has accucheck guide dx E11.9 Pt insulin dependent., # 1 EA, 11 Refill(s), Pharmacy: [facility], 160, cm, 05/10/20 8:54:00 EST, Height, 98.6, kg, 05/10/20 8:54:00 EST, Dosing Weight Start: 05-23-2020 See Instructions , qs 1 month supply--test four times daily--has accucheck guide dx E11.9, insulin dependent, # 1 EA, 11 Refill(s), Pharmacy: [facility], 160, cm, 05/10/20 8:54:00 EST, Height, 98.6, kg, 05/10/20 8:54:00 EST, Dosing Weight Start: 05-23-2020 See Instructions , 1 bottle of 100 ---Test 4times/day--Pt has accucheck guide dx E11.9 Pt insulin dependent., # 1 EA, 11 Refill(s), Pharmacy: [facility], 160, cm, 05/10/20 8:54:00 EST, Height, 98.6, kg, 05/10/20 8:54:00 EST, Dosing Weight Start: 05-23-2020 See Instructions , qs 1 month supply--test four times daily--has accucheck guide dx E11.9, insulin dependent, # 1 EA, 11 Refill(s), Pharmacy: [facility], 160, cm, 05/10/20 8:54:00 EST, Height, 98.6, kg, 05/10/20 8:54:00 EST, Dosing Weight Start: 05-23-2020 See Instructions , 1 bottle of 100 ---Test 4times/day--Pt has accucheck guide dx E11.9 Pt insulin dependent., # 1 EA, 11 Refill(s), Pharmacy: [facility], 160, cm, 05/10/20 8:54:00 EST, Height, 98.6, kg, 05/10/20 8:54:00 EST, Dosing Weight Start: 05-23-2020 See Instructions , qs 1 month supply--test four times daily--has accucheck guide dx E11.9, insulin dependent, # 1 EA, 11 Refill(s), Pharmacy: [facility], 160, cm, 05/10/20 8:54:00 EST, Height, 98.6, kg, 05/10/20 8:54:00 EST, Dosing Weight Start: 05-23-2020 See Instructions , 1 bottle of 100 ---Test 4times/day--Pt has accucheck guide dx E11.9 Pt insulin dependent., # 1 EA, 11 Refill(s), Pharmacy: [facility], 160, cm, 05/10/20 8:54:00 EST, Height, 98.6, kg, 05/10/20 8:54:00 EST, Dosing Weight Start: 05-23-2020 See Instructions , qs 1 month supply--test four times daily--has accucheck guide dx E11.9, insulin dependent, # 1 EA, 11 Refill(s), Pharmacy: [facility], 160, cm, 05/10/20 8:54:00 EST, Height, 98.6, kg, 05/10/20 8:54:00 EST, Dosing Weight Start: 05-23-2020 See Instructions , 1 bottle of 100 ---Test 4times/day--Pt has accucheck guide dx E11.9 Pt insulin dependent., # 1 EA, 11 Refill(s), Pharmacy: [facility], 160, cm, 05/10/20 8:54:00 EST, Height, 98.6, kg, 05/10/20 8:54:00 EST, Dosing Weight Start: 05-23-2020 See Instructions , qs 1 month supply--test four times daily--has accucheck guide dx E11.9, insulin dependent, # 1 EA, 11 Refill(s), Pharmacy: [place] [id number], 160, cm, 05/10/20 8:54:00 EST, Height, 98.6, kg, 05/10/20 8:54:00 EST, Dosing Weight Start: 05-23-2020 See Instructions , 1 bottle of 100 ---Test 4times/day--Pt has accucheck guide dx E11.9 Pt insulin dependent., # 1 EA, 11 Refill(s), Pharmacy: [facility], 160, cm, 05/10/20 8:54:00 EST, Height, 98.6, kg, 05/10/20 8:54:00 EST, Dosing Weight Start: 05-23-2020 See Instructions , qs 1 month supply--test four times daily--has accucheck guide dx E11.9, insulin dependent, # 1 EA, 11 Refill(s), Pharmacy: [facility], 160, cm, 05/10/20 8:54:00 EST, Height, 98.6, kg, 05/10/20 8:54:00 EST, Dosing Weight Start: 05-23-2020 See Instructions , 1 bottle of 100 ---Test 4times/day--Pt has accucheck guide dx E11.9 Pt insulin dependent., # 1 EA, 11 Refill(s), Pharmacy: [facility], 160, cm, 05/10/20 8:54:00 EST, Height, 98.6, kg, 05/10/20 8:54:00 EST, Dosing Weight Start: 05-23-2020 See Instructions , qs 1 month supply--test four times daily--has accucheck guide dx E11.9, insulin dependent, # 1 EA, 11 Refill(s), Pharmacy: [facility], 160, cm, 05/10/20 8:54:00 EST, Height, 98.6, kg, 05/10/20 8:54:00 EST, Dosing Weight Start: 05-23-2020 See Instructions , 1 bottle of 100 ---Test 4times/day--Pt has accucheck guide dx E11.9 Pt insulin dependent., # 1 EA, 11 Refill(s), Pharmacy: [facility], 160, cm, 05/10/20 8:54:00 EST, Height, 98.6, kg, 05/10/20 8:54:00 EST, Dosing Weight Start: 05-23-2020 See Instructions , qs 1 month supply--test four times daily--has accucheck guide dx E11.9, insulin dependent, # 1 EA, 11 Refill(s), Pharmacy: [facility], 160, cm, 05/10/20 8:54:00 EST, Height, 98.6, kg, 05/10/20 8:54:00 EST, Dosing Weight Start: 05-23-2020 See Instructions , 1 bottle of 100 ---Test 4times/day--Pt has accucheck guide dx E11.9 Pt insulin dependent., # 1 EA, 11 Refill(s), Pharmacy: [facility], 160, cm, 05/10/20 8:54:00 EST, Height, 98.6, kg, 05/10/20 8:54:00 EST, Dosing Weight Start: 05-23-2020 See Instructions , qs 1 month supply--test four times daily--has accucheck guide dx E11.9, insulin dependent, # 1 EA, 11 Refill(s), Pharmacy: [facility], 160, cm, 05/10/20 8:54:00 EST, Height, 98.6, kg, 05/10/20 8:54:00 EST, Dosing Weight Start: 05-23-2020 See Instructions , 1 bottle of 100 ---Test 4times/day--Pt has accucheck guide dx E11.9 Pt insulin dependent., # 1 EA, 11 Refill(s), Pharmacy: [place] [id number], 159, cm, 01/21/22 15:18:00 EDT, Height, 97.1, kg, 01/21/22 15:18:00 EDT, D... Start: 01-31-2022 See Instructions , qs 1 month supply--One touch delica plus, # 1 EA, 11 Refill(s), Pharmacy: [facility] [address], 159, cm, 01/21/22 15:18:00 EDT, Height, 97.1 Start: 02-03-2022 See Instructions , qs 1 month supply--test four times daily--has accucheck guide dx E11.9, insulin dependent, # 1 EA, 11 Refill(s), Pharmacy: [facility], 160, cm, 05/10/20 8:54:00 EST, Height, 98.6, kg, 05/10/20 8:54:00 EST, Dosing Weight Start: 05-23-2020 See Instructions , qs 1 month supply, # 1 EA, 11 Refill(s), Pharmacy: [facility] [address], 159, cm, 01/21/22 15:18:00 EDT, Height, 97.1 Start: 02-03-2022 See Instructions , 1 bottle of 100 ---Test 4times/day--Pt has accucheck guide dx E11.9 Pt insulin dependent., # 1 EA, 11 Refill(s), Pharmacy: [facility] [address], 159, cm, 01/21/22 15:18:00 EDT, Height, 97.1, kg, 01/21/22 15:18:00 EDT, D... Start: 01-31-2022 See Instructions , qs 1 month supply--One touch delica plus, # 1 EA, 11 Refill(s), Pharmacy: [facility] [address], 159, cm, 01/21/22 15:18:00 EDT, Height, 97.1 Start: 02-03-2022 See Instructions , qs 1 month supply--test four times daily--has accucheck guide dx E11.9, insulin dependent, # 1 EA, 11 Refill(s), Pharmacy: [facility], 160, cm, 05/10/20 8:54:00 EST, Height, 98.6, kg, 05/10/20 8:54:00 EST, Dosing Weight Start: 05-23-2020 See Instructions , qs 1 month supply, # 1 EA, 11 Refill(s), Pharmacy: [facility] [address], 159, cm, 01/21/22 15:18:00 EDT, Height, 97.1 Start: 02-03-2022 See Instructions , 1 bottle of 100 ---Test 4times/day--Pt has accucheck guide dx E11.9 Pt insulin dependent., # 1 EA, 11 Refill(s), Pharmacy: [facility] [address], 159, cm, 01/21/22 15:18:00 EDT, Height, 97.1, kg, 01/21/22 15:18:00 EDT, D... Start: 01-31-2022 See Instructions , qs 1 month supply--One touch delica plus, # 1 EA, 11 Refill(s), Pharmacy: [facility] [address], 159, cm, 01/21/22 15:18:00 EDT, Height, 97.1 Start: 02-03-2022 See Instructions , qs 1 month supply--test four times daily--has accucheck guide dx E11.9, insulin dependent, # 1 EA, 11 Refill(s), Pharmacy: [facility], 160, cm, 05/10/20 8:54:00 EST, Height, 98.6, kg, 05/10/20 8:54:00 EST, Dosing Weight Start: 05-23-2020 See Instructions , qs 1 month supply, # 1 EA, 11 Refill(s), Pharmacy: [facility] [address], 159, cm, 01/21/22 15:18:00 EDT, Height, 97.1 Start: 02-03-2022 See Instructions , BD UF 8mm 31 G (short) qs 1 month supply. In absence of PCP, # 1 EA, 0 Refill(s), Pharmacy: [place] [address], 160, cm, 05/28/22 14:54:00 EST, Height, 98.7 Start: 07-02-2022 See Instructions , 1 bottle of 100 ---Test 4times/day--Pt has accucheck guide dx E11.9 Pt insulin dependent., # 1 EA, 11 Refill(s), Pharmacy: [facility] [address], 159, cm, 01/21/22 15:18:00 EDT, Height, 97.1, kg, 01/21/22 15:18:00 EDT, D... Start: 01-31-2022 See Instructions , qs 1 month supply--One touch delica plus, # 1 EA, 11 Refill(s), Pharmacy: [facility] [address], 159, cm, 01/21/22 15:18:00 EDT, Height, 97.1 Start: 02-03-2022 See Instructions , qs 1 month supply--test four times daily--has accucheck guide dx E11.9, insulin dependent, # 1 EA, 11 Refill(s), Pharmacy: [facility], 160, cm, 05/10/20 8:54:00 EST, Height, 98.6, kg, 05/10/20 8:54:00 EST, Dosing Weight Start: 05-23-2020 See Instructions , qs 1 month supply, # 1 EA, 11 Refill(s), Pharmacy: [place] [id number], 159, cm, 01/21/22 15:18:00 EDT, Height, 97.1 Start: 02-03-2022 See Instructions , BD UF 8mm 31 G (short) qs 1 month supply. In absence of PCP, # 1 EA, 0 Refill(s), Pharmacy: [facility] [address], 160, cm, 05/28/22 14:54:00 EST, Height, 98.7 Start: 07-02-2022 See Instructions , 1 bottle of 100 ---Test 4times/day--Pt has accucheck guide dx E11.9 Pt insulin dependent., # 1 EA, 11 Refill(s), Pharmacy: [place] [id number], 159, cm, 01/21/22 15:18:00 EDT, Height, 97.1, kg, 01/21/22 15:18:00 EDT, D... Start: 01-31-2022 See Instructions , qs 1 month supply--One touch delica plus, # 1 EA, 11 Refill(s), Pharmacy: [facility] [address], 159, cm, 01/21/22 15:18:00 EDT, Height, 97.1 Start: 02-03-2022 See Instructions , qs 1 month supply--test four times daily--has accucheck guide dx E11.9, insulin dependent, # 1 EA, 11 Refill(s), Pharmacy: [facility], 160, cm, 05/10/20 8:54:00 EST, Height, 98.6, kg, 05/10/20 8:54:00 EST, Dosing Weight Start: 05-23-2020 See Instructions , qs 1 month supply, # 1 EA, 11 Refill(s), Pharmacy: [facility] [address], 159, cm, 01/21/22 15:18:00 EDT, Height, 97.1 Start: 02-03-2022 See Instructions , BD UF 8mm 31 G (short) qs 1 month supply. In absence of PCP, # 1 EA, 0 Refill(s), Pharmacy: [facility] [address], 160, cm, 05/28/22 14:54:00 EST, Height, 98.7 Start: 07-02-2022 See Instructions , 1 bottle of 100 ---Test 4times/day--Pt has accucheck guide dx E11.9 Pt insulin dependent., # 1 EA, 11 Refill(s), Pharmacy: [facility] [address], 159, cm, 01/21/22 15:18:00 EDT, Height, 97.1, kg, 01/21/22 15:18:00 EDT, D... Start: 01-31-2022 See Instructions , qs 1 month supply--One touch delica plus, # 1 EA, 11 Refill(s), Pharmacy: [facility] [address], 159, cm, 01/21/22 15:18:00 EDT, Height, 97.1 Start: 02-03-2022 See Instructions , qs 1 month supply--test four times daily--has accucheck guide dx E11.9, insulin dependent, # 1 EA, 11 Refill(s), Pharmacy: [facility] 2914, 160, cm, 05/10/20 8:54:00 EST, Height, 98.6, kg, 05/10/20 8:54:00 EST, Dosing Weight Start: 05-23-2020 See Instructions , qs 1 month supply, # 1 EA, 11 Refill(s), Pharmacy: [facility] [address], 159, cm, 01/21/22 15:18:00 EDT, Height, 97.1 Start: 02-03-2022 See Instructions , BD UF 8mm 31 G (short) qs 1 month supply. In absence of PCP, # 1 EA, 0 Refill(s), Pharmacy: [facility] [place] - [id number], 160, cm, 05/28/22 14:54:00 EST, Height, 98.7 Start: 07-02-2022 See Instructions , 1 bottle of 100. Onetouch Verio. Testing QID. dx: E10.9 Sent in absence of PCP, # 1 EA, 0 Refill(s), [facility] [employer] 157.5, cm, 10/28/22 14:52:00 EDT, Height, 99.9, kg, 10/28/22 14:52:00 EDT, Dosing Weight Start: 11-07-2022 See Instructions , 1 bottle of 100. Onetouch Verio. Testing QID. dx: E10.9 Sent in absence of PCP, # 1 EA, 0 Refill(s), Pharmacy: [place] [address], 157.5, cm, 10/28/22 14:52:00 EDT, Height, 99.9, kg, 10/28/22 14:52:00 EDT, Dosing Weight Start: 11-07-2022 See Instructions , 1 bottle of 100. Onetouch Verio. Testing QID. dx: E10.9, # 1 EA, 3 Refill(s), Pharmacy: [place] [address], 154.9, cm, 11/18/22 8:18:00 EDT, Height, 101, kg, 11/18/22 8:18:00 EDT, Dosing Weight Start: 12-09-2022 See Instructions , qs 1 month supply. one touch lancets., # 1 EA, 3 Refill(s), Pharmacy: [place] [address], 154.9, cm, 11/18/22 8:18:00 EDT, Height, 101, kg, 11/18/22 8:18:00 EDT, Dosing Weight Start: 12-09-2022 ONETOUCH DELICA PLUS LANCETS EXTRA FINE 33G MISC, 0 Refill(s), 101 Start: 12-05-2022 See Instructions , qs for 1 month supply. Sent in absence of PCP. 31 G x 8 mm 08/12 use as diected, # 1 EA, 0 Refill(s), Pharmacy: [place] [address], 154.9, cm, 11/18/22 8:18:00 EDT, Height, 101, kg, 11/18/22 8:18:00 EDT, Dosing Weight Start: 12-18-2022 See Instructions , 1 bottle of 100. Onetouch Verio. Testing QID. dx: E10.9, # 100 EA, 0 Refill(s), Pharmacy: [place] [address], 62, cm, 03/10/23 16:45:00 EST, Height, 103.4, kg, 03/10/23 16:37:00 EST, Dosing Weight Start: 04-16-2023 See Instructions , qs 1 month supply. one touch lancets., # 100 EA, 0 Refill(s), Pharmacy: [place] [address], 62, cm, 03/10/23 16:45:00 EST, Height, 103.4, kg, 03/10/23 16:37:00 EST, Dosing Weight Start: 04-16-2023 ONETOUCH DELICA PLUS LANCETS EXTRA FINE 33G MISC, 0 Refill(s), 101 Start: 12-05-2022 See Instructions , qs for 1 month supply. Sent in absence of PCP. 31 G x 8 mm 5/16 use as diected, # 1 EA, 0 Refill(s), Pharmacy: [place] [address], 154.9, cm, 11/18/22 8:18:00 EDT, Height, 101, kg, 11/18/22 8:18:00 EDT, Dosing Weight Start: 12-18-2022 See Instructions , 1 bottle of 100. Onetouch Verio. Testing QID. dx: E10.9, # 100 EA, 11 Refill(s), Pharmacy: [place] [address], 157.5, cm, 04/29/23 14:30:00 EST, Height, 104.8, kg, 04/29/23 14:30:00 EST, Dosing Weight Start: 05-11-2023 See Instructions , qs 1 month supply. one touch lancets. Pt tests 4 times a day, # 100 EA, 11 Refill(s), Pharmacy: [place] [address], 157.5, cm, 04/29/23 14:30:00 EST, Height, 104.8, kg, 04/29/23 14:30:00 EST, Dosing Weight Start: 05-11-2023 ONETOUCH DELICA PLUS LANCETS EXTRA FINE 33G MISC, 0 Refill(s), 101 Start: 12-05-2022 See Instructions , qs for 1 month supply. Sent in absence of PCP. 31 G x 8 mm 5/16 use as diected, # 1 EA, 0 Refill(s), Pharmacy: [place] [address], 154.9, cm, 11/18/22 8:18:00 EDT, Height, 101, kg, 11/18/22 8:18:00 EDT, Dosing Weight Start: 12-18-2022 See Instructions , 1 bottle of 100. Onetouch Verio. Testing QID. dx: E10.9, # 100 EA, 11 Refill(s), Pharmacy: [place] [address], 157.5, cm, 04/29/23 14:30:00 EST, Height, 104.8, kg, 04/29/23 14:30:00 EST, Dosing Weight Start: 05-11-2023 See Instructions , qs 1 month supply. one touch lancets. Pt tests 4 times a day, # 100 EA, 11 Refill(s), Pharmacy: [place] [address], 157.5, cm, 04/29/23 14:30:00 EST, Height, 104.8, kg, 04/29/23 14:30:00 EST, Dosing Weight Start: 05-11-2023 ONETOUCH DELICA PLUS LANCETS EXTRA FINE 33G MISC, 0 Refill(s), 101 Start: 12-05-2022 See Instructions , qs for 1 month supply. Sent in absence of PCP. 31 G x 8 mm 08/12 use as diected, # 1 EA, 0 Refill(s), Pharmacy: [place] [address], 154.9, cm, 11/18/22 8:18:00 EDT, Height, 101, kg, 11/18/22 8:18:00 EDT, Dosing Weight Start: 12-18-2022 FREESTYLE LANCET S lancets [id number] Start: 12-24-2011 FREESTYLE LITE STRIPS test strip [id number] Start: 12-24-2011 See Instructions , 1 bottle of 100. Onetouch Verio. Testing QID. dx: E10.9, # 100 EA, 11 Refill(s), Pharmacy: [place] [address], 159, cm, 06/03/23 13:51:00 EST, Height, 14.54, kg, 06/08/23 16:20:00 EDT, Dosing Weight Start: 09-29-2023 See Instructions , qs 1 month supply. one touch lancets. Pt tests 4 times a day, # 100 EA, 11 Refill(s), Pharmacy: [place] [address], 159, cm, 06/03/23 13:51:00 EST, Height, 14.54, kg, 06/08/23 16:20:00 EDT, Dosing Weight Start: 09-29-2023 ONETOUCH DELICA PLUS LANCETS EXTRA FINE 33G MISC, 0 Refill(s), 101 Start: 12-05-2022 See Instructions , qs for 1 month supply. Sent in absence of PCP. 31 G x 8 mm 5/16 use as diected, # 1 EA, 0 Refill(s), Pharmacy: [place] [address], 154.9, cm, 11/18/22 8:18:00 EDT, Height, 101, kg, 11/18/22 8:18:00 EDT, Dosing Weight Start: 12-18-2022 See Instructions , 1 bottle of 100. Onetouch Verio. Testing QID. dx: E10.9, # 100 EA, 11 Refill(s), Pharmacy: [place] [address], 159, cm, 06/03/23 13:51:00 EST, Height, 14.54, kg, 06/08/23 16:20:00 EDT, Dosing Weight Start: 09-29-2023 See Instructions , qs 1 month supply. one touch lancets. Pt tests 4 times a day, # 100 EA, 11 Refill(s), Pharmacy: [place] [address], 159, cm, 06/03/23 13:51:00 EST, Height, 14.54, kg, 06/08/23 16:20:00 EDT, Dosing Weight Start: 09-29-2023 ONETOUCH DELICA PLUS LANCETS EXTRA FINE 33G MISC, 0 Refill(s), 101 Start: 12-05-2022 See Instructions , qs for 1 month supply. Sent in absence of PCP. 31 G x 8 mm 5/16 use as diected, # 1 EA, 0 Refill(s), Pharmacy: [place] [address], 154.9, cm, 11/18/22 8:18:00 EDT, Height, 101, kg, 11/18/22 8:18:00 EDT, Dosing Weight Start: 12-18-2022 See Instructions , 1 bottle of 100. Onetouch Verio. Testing QID. dx: E10.9, # 100 EA, 11 Refill(s), Pharmacy: [place] [address], 159, cm, 06/03/23 13:51:00 EST, Height, 14.54, kg, 06/08/23 16:20:00 EDT, Dosing Weight Start: 09-29-2023 See Instructions , qs 1 month supply. one touch lancets. Pt tests 4 times a day, # 100 EA, 11 Refill(s), Pharmacy: [place] [address], 159, cm, 06/03/23 13:51:00 EST, Height, 14.54, kg, 06/08/23 16:20:00 EDT, Dosing Weight Start: 09-29-2023 ONETOUCH DELICA PLUS LANCETS EXTRA FINE 33G MISC, 0 Refill(s), 101 Start: 12-05-2022 See Instructions , qs for 1 month supply. Sent in absence of PCP. 31 G x 8 mm 08/12 use as diected, # 1 EA, 0 Refill(s), Pharmacy: [place] [address], 154.9, cm, 11/18/22 8:18:00 EDT, Height, 101, kg, 11/18/22 8:18:00 EDT, Dosing Weight Start: 12-18-2022 See Instructions , 1 bottle of 100. Onetouch Verio. Testing QID. dx: E10.9, # 100 EA, 11 Refill(s), Pharmacy: [place] [address], 159, cm, 06/03/23 13:51:00 EST, Height, 14.54, kg, 06/08/23 16:20:00 EDT, Dosing Weight Start: 09-29-2023 See Instructions , qs 1 month supply. one touch lancets. Pt tests 4 times a day, # 100 EA, 11 Refill(s), Pharmacy: [place] [id number], 159, cm, 06/03/23 13:51:00 EST, Height, 14.54, kg, 06/08/23 16:20:00 EDT, Dosing Weight Start: 09-29-2023 ONETOUCH DELICA PLUS LANCETS EXTRA FINE 33G MISC, 0 Refill(s), 101 Start: 12-05-2022 See Instructions , qs for 1 month supply. 31 G x 8 mm 5/16 use as diecte, # 1 EA, 11 Refill(s), Pharmacy: [place] [address], 158, cm, 12/21/23 12:59:00 EDT, Height, 105.7, kg, 12/21/23 12:59:00 EDT, Dosing Weight Start: 01-04-2024 See Instructions , 1 bottle of 100. Onetouch Verio. Testing QID. dx: E10.9, # 100 EA, 11 Refill(s), Pharmacy: [place] [address], 159, cm, 06/03/23 13:51:00 EST, Height, 14.54, kg, 06/08/23 16:20:00 EDT, Dosing Weight Start: 09-29-2023 See Instructions , Freestyle Test Strips. Use to check blood sugar 4 times daily with insulin administrations. #1 box of 100 strips, # 1 EA, 11 Refill(s), Pharmacy: [place] [address], 158, cm, 02/10/24 8:25:00 EST, Height, 104.5, kg, 02/10/24 8:24:00 EST, Dosing Weight Start: 03-14-2024 See Instructions , qs 1 month supply. one touch lancets. Pt tests 4 times a day, # 100 EA, 11 Refill(s), Pharmacy: [place] [address], 159, cm, 06/03/23 13:51:00 EST, Height, 14.54, kg, 06/08/23 16:20:00 EDT, Dosing Weight Start: 09-29-2023 ONETOUCH DELICA PLUS LANCETS EXTRA FINE 33G MISC, 0 Refill(s), 101 Start: 12-05-2022 See Instructions , qs for 1 month supply. 31 G x 8 mm 5/16 use as diecte, # 1 EA, 11 Refill(s), Pharmacy: [place] [address], 158, cm, 12/21/23 12:59:00 EDT, Height, 105.7, kg, 12/21/23 12:59:00 EDT, Dosing Weight Start: 01-04-2024 See Instructions , 1 bottle of 100. Onetouch Verio. Testing QID. dx: E10.9, # 100 EA, 11 Refill(s), Pharmacy: [place] [address], 159, cm, 06/03/23 13:51:00 EST, Height, 14.54, kg, 06/08/23 16:20:00 EDT, Dosing Weight Start: 09-29-2023 See Instructions , Freestyle Test Strips. Use to check blood sugar 4 times daily with insulin administrations. #1 box of 100 strips, # 1 EA, 11 Refill(s), Pharmacy: [place] [address], 158, cm, 02/10/24 8:25:00 EST, Height, 104.5, kg, 02/10/24 8:24:00 EST, Dosing Weight Start: 03-14-2024 See Instructions , qs 1 month supply. one touch lancets. Pt tests 4 times a day, # 100 EA, 11 Refill(s), Pharmacy: [place] [address], 159, cm, 06/03/23 13:51:00 EST, Height, 14.54, kg, 06/08/23 16:20:00 EDT, Dosing Weight Start: 09-29-2023 ONETOUCH DELICA PLUS LANCETS EXTRA FINE 33G MISC, 0 Refill(s), 101 Start: 12-05-2022 See Instructions , qs for 1 month supply. 31 G x 8 mm 08/12 use as diecte, # 1 EA, 11 Refill(s), Pharmacy: [place] [address], 158, cm, 12/21/23 12:59:00 EDT, Height, 105.7, kg, 12/21/23 12:59:00 EDT, Dosing Weight Start: 01-04-2024 See Instructions , 1 bottle of 100. Onetouch Verio. Testing QID. dx: E10.9, # 100 EA, 11 Refill(s), Pharmacy: [place] [address], 159, cm, 06/03/23 13:51:00 EST, Height, 14.54, kg, 06/08/23 16:20:00 EDT, Dosing Weight Start: 09-29-2023 See Instructions , Freestyle Test Strips. Use to check blood sugar 4 times daily with insulin administrations. #1 box of 100 strips, # 1 EA, 11 Refill(s), Pharmacy: [facility] [id number], 158, cm, 02/10/24 8:25:00 EST, Height, 104.5, kg, 02/10/24 8:24:00 EST, Dosing Weight Start: 03-14-2024 See Instructions , qs 1 month supply. one touch lancets. Pt tests 4 times a day, # 100 EA, 11 Refill(s), Pharmacy: [facility] [address], 159, cm, 06/03/23 13:51:00 EST, Height, 14.54, kg, 06/08/23 16:20:00 EDT, Dosing Weight Start: 09-29-2023 ONETOUCH DELICA PLUS LANCETS EXTRA FINE 33G MISC, 0 Refill(s), 101 Start: 12-05-2022 See Instructions , qs for 1 month supply. 31 G x 8 mm 08/12 use as diecte, # 1 EA, 11 Refill(s), Pharmacy: [facility] [address], 158, cm, 12/21/23 12:59:00 EDT, Height, 105.7, kg, 12/21/23 12:59:00 EDT, Dosing Weight Start: 01-04-2024 Goals Date Patient Goal Desired Activity /State Functional Status Date Assessment Result Facility 07-31-2024 Functional Status Assistive Device None [facility] 07-31-2024 Functional Status Ambulation Amb ulation in [place], Ambulation in Room [facility] 07-30-2024 Functional Status Standard Safet y ID band on, Call device within reach, Bed in low position, Wheels locked, Bedside Cart Locked, Safety level maintained [facility] 11-18-2023 Functional Status Standard Safet y ID band on, Call device within reach, Bed in low position, Wheels locked, Upper/Half-Length side-rails up, Phone within reach, personal items within reach [facility] 10-11-2023 Functional Status Independent [facility] 10-11-2023 Functional Status ID band on, Call device within reach, Bed in low position, Wheels locked, Upper/Half-Length side-rails up, Visitor at bedside, Safety level maintained [facility] 11-18-2022 Functional Status Awake, Resting [facility] 11-18-2022 Functional Status confirmed [facility] 11-18-2022 Functional Status [facility] 11-10-2022 Functional Status ID band on, Call device within reach, Bed in low position, Wheels locked, Upper/Half-Length side-rails up, Phone within reach, Bedside Cart Locked, Safety level maintained [facility] 10-24-2022 Functional Status Door open, Room check performed [facility] 10-24-2022 Functional Status [facility] 10-24-2022 Functional Status [facility] 10-24-2022 Functional Status Single level home [facility] 10-24-2022 Functional Status Done [facility] 10-24-2022 Functional Status Sensory Deficits None [facility] 08-29-2022 Functional Status Independent [facility] 08-28-2022 Functional Status Awake [facility] 08-11-2022 Functional Status Room check performed [facility] 08-11-2022 Functional Status [facility] 08-11-2022 Functional Status [facility] 08-11-2022 Functional Status [facility] 08-11-2022 Functional Status [facility] 08-11-2022 Functional Status Maintained [facility] 07-23-2022 Functional status Activity Abili ty [place] Assist;With Assist of 1 [facility] Work Phone: 07-23-2022 Functional status Patient Activi ty Ambulates;Chair;Bathroom Privilege [facility] Work Phone: 07-15-2022 Functional status Chair [facility] Work Phone: 07-08-2022 Functional Status Resting [facility] 02-25-2022 Functional Status Ambulating in room, Up with assistance [facility] 02-25-2022 Functional Status [facility] 02-25-2022 [facility] 02-25[facility]22 Functional Status Room located n [facility], Room check performed [facility] 12-15-2021 Functional Status Room check performed [facility] 12-14-2021 [facility] Functional Status [facility] 12-13-2021 Functional Status Living Situati on Lives with family [facility] 12-13-2021 Functional Status Standard Safet y ID band on, Call device within reach, Bed in low position, Wheels locked, Safety level maintained [facility] 12-13-2021 Functional Status [facility] 11-04-2021 Functional Status Independent [facility] Mental Status Date Assessment Result Facility 07-31-2024 Mental Status Orientation Foll ows simple commands [facility] 07-31-2024 Mental Status [facility] 07-30-2024 Mental Status Oriented x 4 [facility] 11-18-2023 Mental Status Orientation Not oriented to time [facility] 10-11-2023 Mental Status Orientation Oriented x 4 [facility] 10-11-2023 Mental Status [facility] 04-27-2023 Cognitive function Voice/Name [facility] Work Phone: 04-07-2023 Cognitive function Level Of Consciousness Awake [facility] Work Phone: 11-18-2022 Mental Status Oriented x 4 [facility] 11-10-2022 Mental Status Oriented x 4 [facility] 10-24-2022 Mental Status Orientation Orie nted x 4, Follows simple commands [facility] 10-24-2022 Mental Status [facility] 10-24-2022 Mental Status [facility] 08-29-2022 Mental Status Orientation Oriented x 4 [facility] 08-28-2022 Mental Status [facility] 08-11-2022 Mental Status Orientation Oriented x 4 [facility] 08-11-2022 Mental Status [facility] 08-11-2022 Mental Status [facility] 08-11-2022 Mental Status Orientation Asse ssment Oriented x 4 [facility] 07-23-2022 Cognitive function Voice/Name [facility] Work Phone: 07-15-2022 Cognitive function Voice/Name [facility] Work Phone: 07-15-2022 Cognitive function Cooperative [facility] Work Phone: 07-13-2022 Cognitive function Memory Description Int act [facility] Work Phone: 07-12-2022 Cognitive function Level Of Cons ciousness Awake;Alert;Appropriate;Follow s Commands [facility] Work Phone: 02-25-2022 Mental Status Orientation Oriented x 4 [facility] 02-25-2022 Mental Status [facility] 12-15-2021 Mental Status Oriented x 4, Forgetful [facility] 12-14-2021 Mental Status [facility] 12-13-2021 Mental Status [facility] 12-13-2021 Mental Status [facility] 12-13-2021 Mental Status Orientation Not oriented to place, Not oriented to time [facility] 12-13-2021 Mental Status [facility] 11-04-2021 Mental Status Orientation Oriented x 4 [facility] Clinical Notes 08-30-2021 to 08-02-2024 Note Date & Type Note Facility 08-02-2024 Note [facility] 07-31-2024 Hospital Discharge instructions Patient Education 07/31/2024 04:41:44 Vomiting (Adult) Vomiting (Adult) Vomiting is a common symptom that may be due to different causes. These include gastroenteritis (stomach flu), food poisoning and gastritis. There are other more serious causes of vomiting which may be hard to diagnose early in the illness. Therefore, it is important to watch for the warning signs listed below. The main danger from repeated vomiting is dehydration. This is due to excess loss of water and minerals from the body. When this occurs, your body fluids must be replaced. Home care If symptoms are severe, rest at home for the next 24 hours. Because your symptoms may be from an infection, wash your hands often and well. If soap and water are not available, use alcohol-based sales representative electric service to keep from spreading the infection to others. Wash your hands for at least 20 seconds. Humming the happy birthday song twice while you wash is an easy way to make sure you've washed for 20 seconds. Wash your hands after using the toilet, before and after preparing food, before eating food, after changing a diaper, cleaning a wound, caring for a sick person, and blowing your nose, coughing, or sneezing. You should also wash your hands after caring for someone who is sick, touching pet food, or treats, and touching an animal, or animal waste. You may use acetaminophen or NSAID medicines like ibuprofen or naproxen to control fever, unless another medicine was prescribed. If you have chronic liver or kidney disease or ever had a stomach ulcer or gastrointestinal bleeding, talk with your doctor before using these medicines. Aspirin should never be used in anyone under 18 years of age who is ill with a fever. It may cause severe liver damage. Don't use NSAID medicines if you are already taking one for another condition (like arthritis) or are on aspirin (such as for heart disease, or after a stroke) Don't use tobacco and or drink alcohol, which may worsen your symptoms. If medicines for vomiting were prescribed, take as directed. Once vomiting stops, then follow these guidelines: During the first 12 to 24 hours follow the diet below: Fruit juices. Apple, grape juice, clear fruit drinks, and electrolyte replacement drinks. Beverages. Soft drinks without caffeine; mineral water (plain or flavored), decaffeinated tea and coffee. Soups. Clear broth and bouillon Desserts. Plain gelatin, ice pops, and fruit juice bars. As you feel better, you may add 6 to 8 ounces of yogurt per day. During the next 24 hours you may add the following to the above: Hot cereal, plain toast, bread, rolls, crackers Plain noodles, rice, mashed potatoes, chicken noodle or rice soup Unsweetened canned fruit such as applesauce, bananas (avoid pineapple and citrus) Limit caffeine and chocolate. No spices or seasonings except salt. During the next 24 hours: Gradually resume a normal diet, as you feel better and your symptoms lessen. Follow-up care Follow up with your healthcare provider, or as advised. When to seek medical advice Call your healthcare provider right away if any of these occur: Constant right-sided lower belly pain or increasing general belly pain Continued vomiting (unable to keep liquids down) for 24 hours Vomiting blood or coffee grounds Swollen belly Frequent diarrhea (more than 5 times a day); blood (red or black color) or mucus in diarrhea Reduced urine output or extreme thirst Weakness, dizziness or fainting Unusually drowsy or confused Fever of 100.4 F (38 C) oral or higher, or as directed Yellow color of the eyes or skin [id number] [employer]. [address] [place] [address]. All rights reserved. This information is not intended as a substitute for professional medical care. Always follow your healthcare professional's instructions. Follow Up Care 07/31/2024 02:49:09 With:Go to emergency room if symptoms worsen Address:Unknown When:2-4 days With:DENISSE SUTTON APRN-[facility] Address: [address] [place] [address] [address] [facility] [place] [address]- [phone] When:2-[address] [facility] 07-31-2024 Note Discharge Instructions Thank you for allowing [facility] to assist you with your healthcare needs. The following is important discharge information regarding your hospital visit. Diagnosis from Today's Visit Nausea Viral URI What to Do Next Instructions from Your Care Team Please get plenty of rest and fluids. Take nausea medicine as needed. Stick to clear liquid diet for 24 hours with slow advancement to normal diet as tolerated. Try to stick to more bland solids including crackers, rice, breads when she start to introduce solids. Return to the emergency department for any acute worsening emergent symptoms otherwise follow-up with PCP for repeat evaluation in the next week. No qualifying data available. Post Acute Orders No qualifying data available. You Need to Schedule the Following Appointments Follow Up with Go to emergency room if symptoms worsen When:Within 2-4 days Follow Up with DENISSE SUTTON APRN-[facility] When:Within 2-4 days Where:[address] [facility] [place] [address]- [phone] Allergies NKA Medications Please ask your primary doctor or pharmacist before taking any other medication not listed, including over the counter drugs, herbal medications, vitamins and or supplements as they may interact with your home medications. What How Much When Why Instructions Last Dose New ondansetron (ondansetron 4 mg oral tablet, disintegrating) 1 tab(s) by mouth Every 6 hours as needed for Nausea/Vomiting Printed Prescription Unchanged acetaminophen (acetaminophen 325 mg oral tablet) 2 tab(s) by mouth Every 6 hours as needed for as needed for pain Unchanged albuterol-ipratropium (albuterol-ipratropium 2.5 mg-0.5 mg/ 3 mL inhalation solution) 3 Milliliter by inhalation Every 8 hours as needed for as needed for shortness of breath or wheezing Unchanged allopurinol (allopurinol 100 mg oral tablet) 1 tab(s) by mouth Once a day Duration: 90 Days Unchanged amLODIPine (amLODIPine 10 mg oral tablet) 1 tab(s) by mouth Once a day Unchanged aspirin (aspirin 81 mg oral delayed release tablet) 1 tab(s) by mouth Once a day Unchanged atorvastatin (atorvastatin 80 mg oral tablet) 1 tab(s) by mouth Once a day Duration: 90 Days Unchanged carvedilol (Coreg 12.5 mg oral tablet) 1 tab(s) by mouth Two (2) times a day Unchanged cholecalciferol (Vitamin D3 50 mcg (2000 intl units) oral capsule) 1 tab(s) by mouth Every day Unchanged DME (Blood Glucose Test Strips) See instructions 1 bottle of 100. Onetouch Verio. Testing QID. dx: E10.9 Unchanged DME (Blood Pressure Cuff) See instructions (HFpEF) heart failure with preserved ejection fraction Systolic murmur Check and Log Blood Pressure Daily Unchanged DME (DME MISCellaneous) See instructions One Touch Verio Glucometer. Use daily to monitor blood sugars Unchanged DME (DME MISCellaneous) See instructions Freestyle Glucometer. Use to check blood sugars 4 times daily with insulin administrations Unchanged DME (DME MISCellaneous) See instructions One rollator. DX stroke Unchanged DME (DME MISCellaneous) See instructions One touch Ultra2 glucometer. Dispense #1. 0 refills. Use as directed to check blood sugar. Unchanged DME (DME MISCellaneous) See instructions Discontinue home o2--patient no longer needing. . Unchanged DME (DME MISCellaneous) See instructions Freestyle Test Strips. Use to check blood sugar 4 times daily with insulin administrations. #1 box of 100 strips Unchanged DME (Lancets) See instructions qs 1 month supply. one touch lancets. Pt tests 4 times a day Unchanged DME (Pen needles 5 mm) See instructions qs for 1 month supply Unchanged DME (Pen needles) See instructions qs for 1 month supply. 31 G x 8 mm 5 16 use as diecte Unchanged ezetimibe (Zetia 10 mg oral tablet) 1 tab(s) by mouth Once a day Unchanged gabapentin (gabapentin 100 mg oral capsule) 1 cap by mouth Two (2) times a day Leg pain Duration: 30 Days Corrected dose to 100 mg bid Unchanged hydrALAZINE (hydrALAZINE 100 mg oral tablet) 1 tab(s) by mouth Three (3) times a day Unchanged insulin aspart (Novolog) (NovoLOG FlexPen 100 units/ mL injectable solution) 13 unit(s) Subcutaneous Two (2) times daily before meals before lunch and dinner.If blood sugar <80 do not give. Unchanged insulin glargine (Toujeo Max SoloStar 300 units/ mL subcutaneous solution) 20 unit(s) Subcutaneous Once a day Unchanged melatonin (melatonin 5 mg oral tablet) 1 tab(s) by mouth Daily at bedtime as needed for as needed for insomnia Unchanged Misc Medication (ONETOUCH DELICA PLUS LANCETS EXTRA FINE 33G MISC) Unchanged multivitamin (Nephro-Todd oral tablet) 1 tab(s) by mouth Once a day Unchanged multivitamin (Intervale Caps) 1 cap by mouth Once a day Unchanged nystatin topical (nystatin 100,000 units/ g topical powder) 1 application Topical Two (2) times a day Unchanged torsemide (torsemide 100 mg oral tablet) 0.5 tab(s) by mouth Two (2) times a day Please take this list to your next doctor s visit. Bring all medications you take, including over the counter medications, herbals and other supplements with you to your doctor s visit. Patients and families are reminded to discard old lists and to update any records with all medication providers or retail pharmacies. Education Materials Vomiting (Adult) Vomiting is a common symptom that may be due to different causes. These include gastroenteritis (stomach flu), food poisoning and gastritis. There are other more serious causes of vomiting which may be hard to diagnose early in the illness. Therefore, it is important to watch for the warning signs listed below. The main danger from repeated vomiting is dehydration. This is due to excess loss of water and minerals from the body. When this occurs, your body fluids must be replaced. Home care If symptoms are severe, rest at home for the next 24 hours. Because your symptoms may be from an infection, wash your hands often and well. If soap and water are not available, use alcohol-based sales representative electric service to keep from spreading the infection to others. Wash your hands for at least 20 seconds. Humming the happy birthday song twice while you wash is an easy way to make sure you've washed for 20 seconds. Wash your hands after using the toilet, before and after preparing food, before eating food, after changing a diaper, cleaning a wound, caring for a sick person, and blowing your nose, coughing, or sneezing. You should also wash your hands after caring for someone who is sick, touching pet food, or treats, and touching an animal, or animal waste. You may use acetaminophen or NSAID medicines like ibuprofen or naproxen to control fever, unless another medicine was prescribed. If you have chronic liver or kidney disease or ever had a stomach ulcer or gastrointestinal bleeding, talk with your doctor before using these medicines. Aspirin should never be used in anyone under 18 years of age who is ill with a fever. It may cause severe liver damage. Don't use NSAID medicines if you are already taking one for another condition (like arthritis) or are on aspirin (such as for heart disease, or after a stroke) Don't use tobacco and or drink alcohol, which may worsen your symptoms. If medicines for vomiting were prescribed, take as directed. Once vomiting stops, then follow these guidelines: During the first 12 to 24 hours follow the diet below: Fruit juices. Apple, grape juice, clear fruit drinks, and electrolyte replacement drinks. Beverages. Soft drinks without caffeine; mineral water (plain or flavored), decaffeinated tea and coffee. Soups. Clear broth and bouillon Desserts. Plain gelatin, ice pops, and fruit juice bars. As you feel better, you may add 6 to 8 ounces of yogurt per day. During the next 24 hours you may add the following to the above: Hot cereal, plain toast, bread, rolls, crackers Plain noodles, rice, mashed potatoes, chicken noodle or rice soup Unsweetened canned fruit such as applesauce, bananas (avoid pineapple and citrus) Limit caffeine and chocolate. No spices or seasonings except salt. During the next 24 hours: Gradually resume a normal diet, as you feel better and your symptoms lessen. Follow-up care Follow up with your healthcare provider, or as advised. When to seek medical advice Call your healthcare provider right away if any of these occur: Constant right-sided lower belly pain or increasing general belly pain Continued vomiting (unable to keep liquids down) for 24 hours Vomiting blood or coffee grounds Swollen belly Frequent diarrhea (more than 5 times a day); blood (red or black color) or mucus in diarrhea Reduced urine output or extreme thirst Weakness, dizziness or fainting Unusually drowsy or confused Fever of 100.4 F (38 C) oral or higher, or as directed Yellow color of the eyes or skin [phone] [employer]. [address] [place] [address]. All rights reserved. This information is not intended as a substitute for professional medical care. Always follow your healthcare professional's instructions. Additional Information VACCINATE! IT SAVES LIVES! Members of the community who have not yet received the COVID-19 vaccine and would like to receive it can visit one of [facility] vaccine clinics. There are many vaccine clinic locations within the [facility]. For locations and available times, please visit [email or web address] [email or web address] It is important to note that some COVID mobile vaccine clinics are held outdoors and may be canceled in rainy or stormy conditions. To learn more about pediatric vaccinations (ages 5-11), we invite you to visit the [facility] webpage. https://www.[facility].org/p ages/6562-Ghmwd-Maesavwlxzk-Freq kgpaxg-Ysear-Kuxfbujfu.html To learn more about the COVID-19 vaccine, we invite you to visit the CDC website for a list of frequently asked questions. https://www.cdc.gov/coronavirus/ 2019-ncov/vaccines/faq.html [facility] Patient Portal Access Instructions: Stay connected with your healthcare team and access your personal medical information anytime with the [facility] Patient Portal. If you would like a full copy of your medical records please contact the [facility] Medical Records Department Thursday through Thursday between 8a.m. and 4:30p.m. Please follow the directions below to access the portal: 1.Access the email account you provided upon registration to the [facility].2.Look for an invitation email from [facility].3.Open the email and access the invitation link: Accept Invitation to [facility]4.Fill in the required gilmore to create your account. Sign into www.[employer] with your username and password that you created in the above steps to stay up to date. You can then view a summary of results, a summary of your visits, and the ability to download your summaries to your computer or send the information securely to a physician. Remember that your healthcare information is confidential, so carefully consider who you will allow to register on the [facility] Patient Portal for access to your information. You can also access the [facility] Patient Portal on the [employer]. Simply click on Health Records under Health Data and then click on the [employer] logo. HOW TO SAFELY DISPOSE OF PRESCRIPTION MEDICATIONS Please use one of the following methods to safely dispose of your unused medications. 1.Use a drug disposal kit: the drug disposal pouch allows you to safely discard your old and unused drugs. Ask your nurse to give you one when you are discharged.2.Visit a local take-back location: Many local pharmacies and police departments have programs that collect old and unwanted prescription drugs. Call your local pharmacy or go to http://britebill.[employer]/8P8Cy7u to find one close to you.3.Make use of household items: Use cat litter or old coffee grounds to dispose medications if other options are not available. Mix your drugs with these household products, seal them in an airtight container and throw it into the garbage. Call [facility]: [phone] to be sure your drugs can be disposed of in this way. Some medicines may require a different approach.4.Never flush your medications down the toilet. IF YOU HAVE BEEN PRESCRIBED AN OPIOIDS FOR PAIN If you have been prescribed an opioid (such as hydrocodone, oxycodone or morphine), it is critical to understand the possible side effects and risks of opioid pain medications. Even when taken as directed, opioids can have several side effects including: Tolerance, meaning you might need to take more of a medication for the same pain relief. Nausea, vomiting and/or constipation. Sleepiness, dizziness, dry mouth, confusion, depression or itching. Physical dependence, meaning you have withdrawal symptoms when a medication is stopped ? this can develop within a few days. KNOW YOUR RESPONSIBILITIES It is important to know exactly how much and how often to take the opioid pain medications you are prescribed. Never take opioids in higher amounts or more often than prescribed. Do not combine opioids with alcohol or other drugs that cause drowsiness, such as benzodiazepines, also known as benzos, including diazepam and alprazolam, muscle relaxants or sleep aids. Never sell or share prescription opioids. This is illegal. Store opioids in a secure place and out of reach of others (including children, family, friends and visitors). The last page(s) of this document has been signed and retained as a CHART COPY Signatures Patient Education Materials Vomiting (Adult) Medication Leaflets My discharge plan and instructions have been reviewed and explained to me and IARASH SHARON S understand my current condition and have read and understand these discharge instructions. I have received a written copy of the plan/instructions. If I have questions, I am aware that I should contact my doctor. Patient/Identity Management Developer Signature: Date/Time: Relationship to Patient: Witness Name/Signature: Date/Time: [facility] 07-31-2024 Note Exam Date Time Procedure Performing Provider Status 07/31/24 3:59 AM XR Chest 1 View RC CALZADA MD; A [facility] (Verified) [id number] ORIGINAL EXAMINATION: ONE XRAY VIEW OF THE CHEST 07/31/2024 4:00 am COMPARISON: Chest x-ray on 11/18/2023 HISTORY: ORDERING SYSTEM PROVIDED HISTORY: Reason for Exam: cough FINDINGS: The heart is mildly enlarged and unchanged in size. There is no acute lung infiltrate or pulmonary edema. No pleural fluid or pneumothorax is present. Bilateral lung infiltrates have resolved since 11/18/2023. IMPRESSION: 1. Mild cardiomegaly. 2. No acute cardiopulmonary process. Interpreted by: Rc Calzada MD Preliminary Report By: Rc Calzada MD Electronically signed By Rc Calzada MD Dictated Date: 07/31/2024 4:09:29 AM Prelim Date: 07/31/2024 4:10:24 AM Sign Date: 07/31/2024 4:10:24 AM Ordering Provider: TORRI MCCLAIN [facility]05-04-2025 Note* Exam Date Time Procedure Performing Provider Status 07/31/24 3:24 AM EKG [ED AO] - CV TORRI MCCLAIN DO; [facility] (Verified) ECG Final Report Sinus or ectopic atrial rhythm Prolonged ID interval Left bundle branch block Electronic Signature: TORRI MCCLAIN DO 07/31/2024 04:12:26 [facility]05-03-2025 Hospital Discharge instructions Patient Education 07/30/2024 14:12:20 URI, Viral, No Abx (Adult) Viral Upper Respiratory Illness (Adult) You have a viral upper respiratory illness (URI), which is another term for the common cold. This illness is contagious during the first few days. It is spread through the air by coughing and sneezing. It may also be spread by direct contact (touching the sick person and then touching your own eyes, nose, or mouth). Frequent handwashing will decrease risk of spread. Most viral illnesses go away within 7 to 10 days with rest and simple home remedies. Sometimes the illness may last for several weeks. Antibiotics will not kill a virus, and they are generally not prescribed for this condition. Home care If symptoms are severe, rest at home for the first 2 to 3 days. When you resume activity, don't letyourself get too tired. Don't smoke. If you need help stopping, talk with your healthcare provider. Avoid being exposed to cigarette smoke (yours or others ). You may use acetaminophen or ibuprofen to control pain and fever, unless another medicine was prescribed. If you have chronic liver or kidney disease, have ever had a stomach ulcer or gastrointestinal bleeding, or are taking blood-thinning medicines, talk with your healthcare provider before using these medicines. Aspirin should never be given to anyone under 18 years of age who is ill with a viral infection or fever. It may cause severe liver or brain damage. Your appetite may be poor, so a light diet is fine. Stay well hydrated by drinking 6 to 8 glasses of fluids per day (water, soft drinks, juices, tea, or soup). Extra fluids will help loosen secretions in the nose and lungs. Sczz-kkf-ysjjzpa cold medicines will not shorten the length of time you re sick, but they may be helpful for the following symptoms: cough, sore throat, and nasal and sinus congestion. If you take prescription medicines, ask your healthcare provider or pharmacist which bnnk-ohf-yqkdsso medicines are safe to use. (Note: Don't use decongestants if you have high blood pressure.) Follow-up care Follow up with your healthcare provider, or as advised. When to seek medical advice Call your healthcare provider right away if any of these occur: Cough with lots of colored sputum (mucus) Severe headache; face, neck, or ear pain Difficulty swallowing due to throat pain Fever of 100.4 F (38 C) or higher, or as directed by your healthcare provider Call 911 Call 911 if any of these occur: Chest pain, shortness of breath, wheezing, or difficulty breathing Coughing up blood Very severe pain with swallowing, especially if it goes along with a muffled voice [phone] [employer]. [address] [place] [address]. All rights reserved. This information is not intended as a substitute for professional medical care. Always follow yourhealthcare professional's instructions. Follow Up Care 07/30/2024 14:01:26 With:DENISSE SUTTON Address: [address] [place] [phone] When:2-[address] [facility] 05-03-2025 Emergency department Discharge summary Discharge Instructions Thank you for allowing [facility] to assist you with your healthcare needs. The following is importantdischarge information regarding your hospital visit. Diagnosis from Today's Visit Viral URI What to Do Next Instructions from Your Care Team No qualifying data available. Post Acute Orders No qualifying data available. You Need to Schedule the Following Appointments Follow Up with DENISSE SUTTON When:Within 2-4 days Where:[place] [address] [phone] Allergies NKA Medications Please ask your primary doctor or pharmacist before taking any other medication not listed, including over the counter drugs, herbal medications, vitamins and or supplements as they may interact withur home medications. What How Much When Why Instructions Last Dose Unchanged acetaminophen (acetaminophen 325 mg oral tablet) 2 tab(s) by mouth Every 6 hours as needed for as needed for pain Unchanged albuterol-ipratropium (albuterol-ipratropium 2.5 mg-0.5 mg/ 3 mL inhalation solution) 3 Milliliter by inhalation Every 8 hours as needed for as needed for shortness of breath or wheezing Unchanged allopurinol (allopurinol 100 mg oral tablet) 1 tab(s) by mouth Once a day Duration: 90 Days Unchanged amLODIPine (amLODIPine 10 mg oral tablet) 1 tab(s) by mouth Once a day Unchanged aspirin (aspirin 81 mg oral delayed release tablet) 1 tab(s) by mouth Once a day Unchanged atorvastatin (atorvastatin 80 mg oral tablet) 1 tab(s) by mouth Once a day Duration: 90 Days Unchanged carvedilol (Coreg 12.5 mg oral tablet) 1 tab(s) by mouth Two (2) times a day Unchanged cholecalciferol (Vitamin D3 50 mcg (2000 intl units) oral capsule) 1 tab(s) by mouth Every day Unchanged DME (Blood Glucose Test Strips) See instructions 1 bottle of 100. Onetouch Verio. Testing QID. dx: E10.9 Unchanged DME (Blood Pressure Cuff) See instructions (HFpEF) heart failure with preserved ejection fraction Systolic murmur Check and Log Blood Pressure Daily Unchanged DME (DME MISCellaneous) See instructions One Touch Verio Glucometer. Use daily to monitor blood sugars Unchanged DME (DME MISCellaneous) See instructions Freestyle Glucometer. Use to check blood sugars 4 times daily with insulin administrations Unchanged DME (DME MISCellaneous) See instructions One rollator. DX stroke Unchanged DME (DME MISCellaneous) See instructions One touch Ultra2 glucometer. Dispense #1. 0 refills. Use as directed to check blood sugar. Unchanged DME (DME MISCellaneous) See instructions Discontinue home o2--patient no longer needing. . Unchanged DME (DME MISCellaneous) See instructions Freestyle Test Strips. Use to check blood sugar 4 times daily with insulin administrations. #1 box of 100 strips Unchanged DME (Lancets) See instructions qs 1 month supply. one touch lancets. Pt tests 4 times a day Unchanged DME (Pen needles 5 mm) See instructions qs for 1 month supply Unchanged DME (Pen needles) See instructions qs for 1 month supply. 31 G x 8 mm use as diecte Unchanged ezetimibe (Zetia 10 mg oral tablet) 1 tab(s) by mouth Once a day Unchanged gabapentin (gabapentin 100 mg oral capsule) 1 cap by mouth Two (2) times a day Leg pain Duration: 30 Days Corrected dose to 100 mg bid Unchanged hydrALAZINE (hydrALAZINE 100 mg oral tablet) 1 tab(s) by mouth Three (3) times a day Unchanged insulin aspart (Novolog) (NovoLOG FlexPen 100 units/ mL injectable solution) 13 unit(s) Subcutaneous Two (2) times daily before meals before lunch and dinner.If blood sugar <80 do not give. Unchanged insulin glargine (Toujeo Max SoloStar 300 units/ mL subcutaneous solution) 20 unit(s) Subcutaneous Once a day Unchanged melatonin (melatonin 5 mg oral tablet) 1 tab(s) by mouth Daily at bedtime as needed for as needed for insomnia Unchanged Misc Medication (ONETOUCH DELICA PLUS LANCETS EXTRA FINE 33G MISC) Unchanged multivitamin (Nephro-Todd oral tablet) 1 tab(s) by mouth Once a day Unchanged multivitamin (Alok Caps) 1 cap by mouth Once a day Unchanged nystatin topical (nystatin 100,000 units/ g topical powder) 1 application Topical Two (2) times a day Unchanged torsemide (torsemide 100 mg oral tablet) 0.5 tab(s) by mouth Two (2) times a day Please take this list to your next doctor s visit. Bring all medications you take, including over the counter medications, herbals and other supplements with you to your doctor s visit. Patients and families are reminded to discard old lists and to update any records with all medication providers or retail pharmacies. Education Materials Viral Upper Respiratory Illness (Adult) You have a viral upper respiratory illness (URI), which is another term for the common cold. This illness is contagious during the first few days. It is spread through the air by coughing and sneezing. It may also be spread by direct contact (touching the sick person and then touching your own eyes, nose, or mouth). Frequent handwashing will decrease risk of spread. Most viral illnesses go away within 7 to 10 days with rest and simple home remedies. Sometimes the illness may last for several weeks. Antibiotics will not kill a virus, and they are generally not prescribed for this condition. Home care If symptoms are severe, rest at home for the first 2 to 3 days. When you resume activity, don't letyourself get too tired. Don't smoke. If you need help stopping, talk with your healthcare provider. Avoid being exposed to cigarette smoke (yours or others ). You may use acetaminophen or ibuprofen to control pain and fever, unless another medicine was prescribed. If you have chronic liver or kidney disease, have ever had a stomach ulcer or gastrointestinal bleeding, or are taking blood-thinning medicines, talk with your healthcare provider before using these medicines. Aspirin should never be given to anyone under 18 years of age who is ill with a viral infection or fever. It may cause severe liver or brain damage. Your appetite may be poor, so a light diet is fine. Stay well hydrated by drinking 6 to 8 glasses of fluids per day (water, soft drinks, juices, tea, or soup). Extra fluids will help loosen secretions in the nose and lungs. Hrip-chj-fehwroy cold medicines will not shorten the length of time you re sick, but they may be helpful for the following symptoms: cough, sore throat, and nasal and sinus congestion. If you take prescription medicines, ask your healthcare provider or pharmacist which djyo-nip-pokuuag medicines are safe to use. (Note: Don't use decongestants if you have high blood pressure.) Follow-up care Follow up with your healthcare provider, or as advised. When to seek medical advice Call your healthcare provider right away if any of these occur: Cough with lots of colored sputum (mucus) Severe headache; face, neck, or ear pain Difficulty swallowing due to throat pain Fever of 100.4 F (38 C) or higher, or as directed by your healthcare provider Call 911 Call 911 if any of these occur: Chest pain, shortness of breath, wheezing, or difficulty breathing Coughing up blood Very severe pain with swallowing, especially if it goes along with a muffled voice [phone] [employer]. [address] [place] [address]. All rights reserved. This information is not intended as a substitute for professional medical care. Always follow yourhealthcare professional's instructions. Additional Information VACCINATE! IT SAVES LIVES! Members of the community who have not yet received the COVID-19 vaccine and would like to receive it can visit one of [facility] vaccine clinics. There are many vaccine clinic locations within the [facility]. For locations and available times, please visit www.[email or web address].[email or web address]/. It is important to note that some COVID mobile vaccine clinics are held outdoors and may be canceled in rainy or stormy conditions. To learn more about pediatric vaccinations (ages 5-11), we invite you to visit the [facility] webpage. https://www.[facility].org/pages/7079-[email or web address]-Oyytooqjbu-[email or web address] stions.htmlTo learn more about the COVID-19 vaccine, we invite you to visit the CDC website for a list of frequently asked questions. https://www.cdc.gov/coronavirus/2019-ncov/vaccines/faq.html [facility] Patient Portal Access Instructions: Stay connected with your healthcare team and access your personal medical information anytime with the [facility] Patient Portal. If you would like a full copy of your medical records please contact the [facility] Medical Records Department Thursday through Thursday between 8a.m. and 4:30p.m. Please follow the directions below to access the portal: 1.Access the email account you provided upon registration to the [facility].2.Look for an invitation email from [facility].3.Open the email and access the invitation link: Accept Invitation to [facility]4.Fill in the required gilmore to create your account. Sign into [email or web address] with your username and password that you created in the above steps to stay up to date. You can then view a summary of results, a summary of your visits, and the ability to download your summaries to your computer or send the information securely to a physician. Remember that your healthcare information is confidential, so carefully consider who you will allow to register on the [facility] Patient Portal for access to your information. You can also access the [facility] Patient Portal on the [employer]. Simply click on Health Records under [employer] and then click on the Swipe.to logo. HOW TO SAFELY DISPOSE OF PRESCRIPTION MEDICATIONS Please use one of the following methods to safely dispose of your unused medications. 1.Use a drug disposal kit: the drug disposal pouch allows you to safely discard your old and unuseddrugs. Ask your nurse to give you one when you are discharged.2.Visit a local take-back location: Many local pharmacies and police departments have programs that collect old and unwanted prescriptiondrugs. Call your local pharmacy or go to http://britebill.[employer]/8Y1It0s to find one close to you.3.Make use of household items: Use cat litter or old coffee grounds to dispose medications if other options arenot available. Mix your drugs with these household products, seal them in an airtight container andthrow it into the garbage. Call [facility]: [phone] to be sure your drugs can be disposed of in this way. Some medicines may require a different approach.4.Never flush your medications down the toilet. IF YOU HAVE BEEN PRESCRIBED AN OPIOIDS FOR PAIN If you have been prescribed an opioid (such as hydrocodone, oxycodone or morphine), it is critical to understand the possible side effects and risks of opioid pain medications. Even when taken as directed, opioids can have several side effects including: Tolerance, meaning you might need to take more of a medication for the same pain relief. Nausea, vomiting and/or constipation. Sleepiness, dizziness, dry mouth, confusion, depression or itching. Physical dependence, meaning you have withdrawal symptoms when a medication is stopped ? this can develop within a few days. KNOW YOUR RESPONSIBILITIES It is important to know exactly how much and how often to take the opioid pain medications you are prescribed. Never take opioids in higher amounts or more often than prescribed. Do not combine opioids with alcohol or other drugs that cause drowsiness, such as benzodiazepines, also known as benzos,including diazepam and alprazolam, muscle relaxants or sleep aids. Never sell or share prescriptionopioids. This is illegal. Store opioids in a secure place and out of reach of others (including children, family, friends and visitors). The last page(s) of this document has been signed and retained as a CHART COPY Signatures Patient Education Materials URI, Viral, No Abx (Adult) Medication Leaflets My discharge plan and instructions have been reviewed and explained to me and I,ZAYDA DAVIS understand my current condition and have read and understand these discharge instructions. I have received a written copy of the plan/instructions. If I have questions, I am aware that I should contactmy doctor. Patient/Identity Management Developer Signature: Date/Time: Relationship to Patient: Witness Name/Signature: Date/Time: [facility]09-19-2024 [facility] 11-23-2023 Note. MICRO - Microbiology PROCEDURE: Blood Culture (bacterial) [*1] SOURCE: Blood BODY SITE: COLLECTED DATE/TIME: 11/18/2023 12:51 EDT RECEIVED DATE/TIME: 11/18/2023 18:55 EDT START DATE/TIME: 11/18/2023 18:55 EDT FREE TEXT SOURCE: FINAL REPORTS Final Report [] Verified Date/Time/Personnel: 11/23/2023 18:59 EDT Blood Culture: No Growth at 5 days. PRELIMINARY REPORTS Preliminary Report [] Verified Date/Time/Personnel: 11/18/2023 20:00 EDT Culture has been received in lab and is no growth to date. Routine cultures are held for 5 days. Performing Locations *1: This test was performed at: [address], [address] [place], [place] [address]11-23-2023 Note. MICRO - Microbiology PROCEDURE: Blood Culture (bacterial) [*1] SOURCE: Blood BODY SITE: COLLECTED DATE/TIME: 11/18/2023 12:51 EDT RECEIVED DATE/TIME: 11/18/2023 18:55 EDT START DATE/TIME: 11/18/2023 18:55 EDT FREE TEXT SOURCE: FINAL REPORTS Final Report [] Verified Date/Time/Personnel: 11/23/2023 18:59 EDT Blood Culture: No Growth at 5 days. PRELIMINARY REPORTS Preliminary Report [] Verified Date/Time/Personnel: 11/18/2023 19:59 EDT Culture has been received in lab and is no growth to date. Routine cultures are held for 5 days. Performing Locations *1: This test was performed at: [address], [address] [place] [address] ([place])11-21-2023 [facility]08-21-2024 Note ORIGINAL EXAMINATION: TWO XRAY VIEWS OF THE CHEST11/18/2023 11:56 am COMPARISON: 12/13/2021 HISTORY: ORDERING SYSTEM PROVIDED HISTORY: Reason for Exam: SOB/Cough/Fever FINDINGS: Enlarged cardiac silhouette and atherosclerosis.Multifocal airspace disease is most confluent in the lower lungs. Nonspecific right apical density appears nodular. No pneumothorax seen. Small pleural effusions suspected. Degenerative changes seen of the shoulders and spine. Surgical clips project in the left axilla/left upper arm. No aggressive osseous lesions identified. IMPRESSION: Multifocal airspace disease. Correlate for signs of pneumonia. Small pleural effusions Focal density in the right apex could relate to an additional focus of airspace disease or a pulmonary nodule/lesion. Follow-up to resolution advised to exclude a neoplasm. If the density persists on short interval follow-up radiographs, CT will be necessary. Interpreted by: Gelacio He MD Preliminary Report By: Gelacio He MD Electronically signed By Gelacio He MD Dictated Date: 11/18/2023 12:00:35 PM Prelim Date: 11/18/2023 12:03:57 PM Sign Date: 11/18/2023 12:03:57 PM [facility] NoteSinus rhythm Prolonged ID interval Anterior infarct, old Electronic Signature: EVELINA CURTIS MD 11/18/2023 10:40:21[facility] 07-15-2024 Hospital Discharge instructions Patient Education 10/11/2023 22:23:11 R.I.C.E. RICE RICE stands for rest, ice, compression, and elevation. Doing these things helps limit pain and swelling after an injury. RICE also helps injuries heal faster. Use RICE for sprains, strains, and severe bruises or bumps. Follow the tips on this handout and begin RICE as soon as possible after an injury. Rest Pain is your body s way of telling you to rest an injured area. Whether you have hurt an elbow, hand, foot, or knee, limiting its use will prevent further injury and help you heal. Ice Applying ice right after an injury helps prevent swelling and reduce pain. Don t place ice directlyon your skin. Wrap a cold pack or bag of ice in a thin cloth. Place it over the injured area. Ice for 10 minutes every 3 hours. Don t ice for more than 20 minutes at a time. Compression Putting pressure (compression) on an injury helps prevent swelling and provides support. Wrap the injured area firmly with an elastic bandage. If your hand or foot tingles, becomes discolored, or feels cold to the touch, the bandage may be too tight. Rewrap it more loosely. If your bandage becomes too loose, rewrap it. Do not wear an elastic bandage overnight. Elevation Keeping an injury elevated helps reduce swelling, pain, and throbbing. Elevation is most effective when the injury is kept elevated higher than the heart. Call your healthcare provider if you notice any of the following: Fingers or toes feel numb, are cold to the touch, or change color. Skin looks shiny or tight. Pain, swelling, or bruising worsens and is not improved with elevation. 7892-3601 [employer]. [address] [place] [address], [place] [address]. All rights reserved. This information is not intended as a substitute for professional medical care. Always follow yourhealthcare professional's instructions. Follow Up Care 10/11/2023 21:12:26 With:DENISSE SUTTON Address: [place] [address]- [phone] When:2-[address] [facility] 07-14-2024 Note Discharge Instructions Thank you for allowing [facility] to assist you with your healthcare needs. The following is importantdischarge information regarding your hospital visit. What to Do Next Instructions from Your Care Team No qualifying data available. Post Acute Orders No qualifying data available. You Need to Schedule the Following Appointments Follow Up with DENISSE SUTTON When:Within 2-4 days Where:[place] [address] [phone] Allergies NKA Medications Please ask your primary doctor or pharmacist before taking any other medication not listed, including over the counter drugs, herbal medications, vitamins and or supplements as they may interact withyour home medications. What How Much When Why Instructions Last Dose Unchanged allopurinol (allopurinol 100 mg oral tablet) 1 tab(s) by mouth Once a day Duration: 90 Days Unchanged amLODIPine (amLODIPine 10 mg oral tablet) 1 tab(s) by mouth Once a day Unchanged aspirin (aspirin 81 mg oral delayed release tablet) 1 tab(s) by mouth Once a day Unchanged atorvastatin (atorvastatin 80 mg oral tablet) 1 tab(s) by mouth Once a day Duration: 90 Days Unchanged carvedilol (Coreg 12.5 mg oral tablet) 1 tab(s) by mouth Two (2) times a day Unchanged cholecalciferol (Vitamin D3 50 mcg (2000 intl units) oral capsule) 1 tab(s) by mouth Every day Unchanged DME (Blood Glucose Test Strips) See instructions 1 bottle of 100. Onetouch Verio. Testing QID. dx: E10.9 Unchanged DME (Blood Pressure Cuff) See instructions (HFpEF) heart failure with preserved ejection fraction Systolic murmur Check and Log Blood Pressure Daily Unchanged DME (DME MISCellaneous) See instructions One Touch Verio Glucometer. Use daily to monitor blood sugars Unchanged DME (DME MISCellaneous) See instructions One rollator. DX stroke Unchanged DME (Lancets) See instructions qs 1 month supply. one touch lancets. Pt tests 4 times a day Unchanged DME (Pen needles 5 mm) See instructions qs for 1 month supply Unchanged DME (Pen needles) See instructions qs for 1 month supply. Sent in absence of PCP. 31 G x 8 mm use as diected Unchanged ezetimibe (Zetia 10 mg oral tablet) 1 tab(s) by mouth Once a day Unchanged gabapentin (gabapentin 100 mg oral capsule) 1 cap by mouth Two (2) times a day Leg pain Duration: 30 Days Unchanged hydrALAZINE (hydrALAZINE 100 mg oral tablet) 1 tab(s) by mouth Three (3) times a day Unchanged insulin glargine (Toujeo Max SoloStar 300 units/ mL subcutaneous solution) 20 unit(s) Subcutaneous Once a day Unchanged insulin lispro (HumaLOG) (HumaLOG KwikPen 100 units/ mL injectable PEN) 5 unit(s) Subcutaneous With lunch Unchanged melatonin (melatonin 5 mg oral tablet) 1 tab(s) by mouth Daily at bedtime as needed for as needed for insomnia Unchanged Misc Medication (ONETOUCH DELICA PLUS LANCETS EXTRA FINE 33G MISC) Unchanged multivitamin (Nephro-Todd oral tablet) 1 tab(s) by mouth Once a day Unchanged venlafaxine (venlafaxine 75 mg oral capsule, extended release) 1 cap by mouth Once a day Please take this list to your next doctor s visit. Bring all medications you take, including over the counter medications, herbals and other supplements with you to your doctor s visit. Patients and families are reminded to discard old lists and to update any records with all medication providers or retail pharmacies. Education Materials RICE RICE stands for rest, ice, compression, and elevation. Doing these things helps limit pain and swelling after an injury. RICE also helps injuries heal faster. Use RICE for sprains, strains, and severe bruises or bumps. Follow the tips on this handout and begin RICE as soon as possible after an injury. Rest Pain is your body s way of telling you to rest an injured area. Whether you have hurt an elbow, hand, foot, or knee, limiting its use will prevent further injury and help you heal. Ice Applying ice right after an injury helps prevent swelling and reduce pain. Don t place ice directlyon your skin. Wrap a cold pack or bag of ice in a thin cloth. Place it over the injured area. Ice for 10 minutes every 3 hours. Don t ice for more than 20 minutes at a time. Compression Putting pressure (compression) on an injury helps prevent swelling and provides support. Wrap the injured area firmly with an elastic bandage. If your hand or foot tingles, becomes discolored, or feels cold to the touch, the bandage may be too tight. Rewrap it more loosely. If your bandage becomes too loose, rewrap it. Do not wear an elastic bandage overnight. Elevation Keeping an injury elevated helps reduce swelling, pain, and throbbing. Elevation is most effective when the injury is kept elevated higher than the heart. Call your healthcare provider if you notice any of the following: Fingers or toes feel numb, are cold to the touch, or change color. Skin looks shiny or tight. Pain, swelling, or bruising worsens and is not improved with elevation. [phone] [employer]. [address] [facility], [place] [address]. All rights reserved. This information is not intended as a substitute for professional medical care. Always follow yourhealthcare professional's instructions. Additional Information VACCINATE! IT SAVES LIVES! Members of the community who have not yet received the COVID-19 vaccine and would like to receive it can visit one of [facility] vaccine clinics. There are many vaccine clinic locations within the State. For locations and available times, please visit www.gettheshot.coronavirus.[place].gov/. It is important to note that some COVID mobile vaccine clinics are held outdoors and may be canceled in rainy or stormy conditions. To learn more about pediatric vaccinations (ages 5-11), we invite you to visit the [facility] webpage. https://www.[facility].org/pages/3200-Rghdc-Nqbqedjgrba-Tztgbwruub-Tznto-Gww stions.htmlTo learn more about the COVID-19 vaccine, we invite you to visit the CDC website for a list of frequently asked questions. https://www.cdc.gov/coronavirus/2019-ncov/vaccines/faq.html [facility] Patient Portal Access Instructions: Stay connected with your healthcare team and access your personal medical information anytime with the [facility] Patient Portal. If you would like a full copy of your medical records please contact the [facility] Medical Records Department Thursday through Thursday between 8a.m. and 4:30p.m. Please follow the directions below to access the portal: 1.Access the email account you provided upon registration to the hospital.2.Look for an invitation email from [facility].3.Open the email and access the invitation link: Accept Invitation to [facility]4.Fill in the required gilmore to create your account. Sign into www.[employer] with your username and password that you created in the above steps to stay up to date. You can then view a summary of results, a summary of your visits, and the ability to download your summaries to your computer or send the information securely to a physician. Remember that your healthcare information is confidential, so carefully consider who you will allow to register on the [facility] Patient Portal for access to your information. You can also access the [facility] Patient Portal on the [employer]. Simply click on Health Records under [employer] and then click on the Swipe.to logo. HOW TO SAFELY DISPOSE OF PRESCRIPTION MEDICATIONS Please use one of the following methods to safely dispose of your unused medications. 1.Use a drug disposal kit: the drug disposal pouch allows you to safely discard your old and unuseddrugs. Ask your nurse to give you one when you are discharged.2.Visit a local take-back location: Many local pharmacies and police departments have programs that collect old and unwanted prescriptiondrugs. Call your local pharmacy or go to http://britebill.[employer]/3I7Pi1j to find one close to you.3.Make use of household items: Use cat litter or old coffee grounds to dispose medications if other options arenot available. Mix your drugs with these household products, seal them in an airtight container andthrow it into the garbage. Call [facility]: [phone] to be sure your drugs can be disposed of in this way. Some medicines may require a different approach.4.Never flush your medications down the toilet. IF YOU HAVE BEEN PRESCRIBED AN OPIOIDS FOR PAIN If you have been prescribed an opioid (such as hydrocodone, oxycodone or morphine), it is critical to understand the possible side effects and risks of opioid pain medications. Even when taken as directed, opioids can have several side effects including: Tolerance, meaning you might need to take more of a medication for the same pain relief. Nausea, vomiting and/or constipation. Sleepiness, dizziness, dry mouth, confusion, depression or itching. Physical dependence, meaning you have withdrawal symptoms when a medication is stopped ? this can develop within a few days. KNOW YOUR RESPONSIBILITIES It is important to know exactly how much and how often to take the opioid pain medications you are prescribed. Never take opioids in higher amounts or more often than prescribed. Do not combine opioids with alcohol or other drugs that cause drowsiness, such as benzodiazepines, also known as benzos,including diazepam and alprazolam, muscle relaxants or sleep aids. Never sell or share prescriptionopioids. This is illegal. Store opioids in a secure place and out of reach of others (including children, family, friends and visitors). The last page(s) of this document has been signed and retained as a CHART COPY Signatures Patient Education Materials R.I.C.E. Medication Leaflets My discharge plan and instructions have been reviewed and explained to me and IARASH SHARON S understand my current condition and have read and understand these discharge instructions. I have received a written copy of the plan/instructions. If I have questions, I am aware that I should contactmy doctor. Patient/Identity Management Developer Signature: Date/Time: Relationship to Patient: Witness Name/Signature: Date/Time: [facility]07-14-2024 Note ORIGINAL EXAMINATION: TWO XRAY VIEWS OF THE LEFT TIBIA/FIBULA 10/11/2023 10:01 pm COMPARISON: None. HISTORY: ORDERING SYSTEM PROVIDED HISTORY: Reason for Exam: pain TECHNIQUE: AP and lateral views. FINDINGS: There are degenerative changes of the left knee joint with joint space narrowing, marginal osteophytes, and moderate enthesophyte at medial tibial plateau. There are enthesophytes at the superior patella. Joint spaces and articular surfaces are preserved and in gross anatomic alignment. There is no acute cortical discontinuity. There are soft tissue vascular calcifications. IMPRESSION: 1. There is no acute fracture or dislocation. Interpreted by: Danis Hamilton Preliminary Report By: Danis Hamilton Electronically signed By Danis Hamilton Dictated Date: 10/11/2023 10:07:24 PM Prelim Date: 10/11/2023 10:11:25 PM Sign Date: 10/11/2023 10:11:25 PM Ordering Provider: [facility]06-11-2024 Miscellaneous Notes* Sedation Documentation - Sanjuanita Bustillos RN - 09/08/2023 10:36 AM EDT Patient given discharge instructions and discharged home with sister. * Sedation Documentation - Sanjuanita Bustillos RN - 09/08/2023 10:33 AM EDT Pressure held by Max Pugh, no bleeding noted, DSD applied. * Sedation Documentation - Sanjuanita Bustillos RN - 09/08/2023 10:27 AM EDT Catheter removed intact [facility] note* Sedation Documentation - Sanjuanita Bustillos RN - 09/08/2023 10:36 AM EDT Patient given discharge instructions and discharged home with sister. [facility]06-[facility] Nurse procedure note* Sedation Documentation - Sanjuanita Bustillos RN - 09/08/2023 10:33 AM EDT Pressure held by Max Zepeda Rt, no bleeding noted, DSD applied. [facility]06[facility] Surgery Surgical operation note* Brief Op Note - Jeremy Aguirre MD, MD - 09/08/2023 10:32 AM EDT BRIEF OPERATIVE / PROCEDURE NOTE LOG ID: [id number] SURGERY/PROCEDURE DATE: 09/08/2023 INCISION/PROCEDURE START TIME: 10:26 AM INCISION CLOSE/PROCEDURE END TIME: SURGEON(S)/PROCEDURALIST(S) AND KNIFE CUTTER(S): Surgeon(s) and Role: * Jeremy Aguirre MD, MD - Primary No Additional Staff SURGERY/PROCEDURE(S): Removal of tunneled dialysis catheter ANESTHESIA: Local FINDINGS: Successful removal ESTIMATED BLOOD LOSS: Minimal SPECIMENS: None COMPLICATIONS: None CLOSURE TECHNIQUE: Primary PRE-OP/PRE-PROCEDURE DIAGNOSIS: Renal failure POST-OP/POST-PROCEDURE DIAGNOSIS: Same as Preop SIGNATURE: Jeremy Aguirre MD PATIENT NAME: Zayda Davis DATE: September 08, 2023 TIME: 10:32 AM [facility] Work Phone: [phone]) 848-613206-11-2024 Surgical operation note* Brief Op Note - Jeremy Aguirre MD, MD - 09/08/2023 10:32 AM EDT BRIEF OPERATIVE / PROCEDURE NOTE LOG ID: [id number] SURGERY/PROCEDURE DATE: 09/08/2023 INCISION/PROCEDURE START TIME: 10:26 AM INCISION CLOSE/PROCEDURE END TIME: SURGEON(S)/PROCEDURALIST(S) AND KNIFE CUTTER(S): Surgeon(s) and Role: * Jeremy Aguirre MD, MD - Primary No Additional Staff SURGERY/PROCEDURE(S): Removal of tunneled dialysis catheter ANESTHESIA: Local FINDINGS: Successful removal ESTIMATED BLOOD LOSS: Minimal SPECIMENS: None COMPLICATIONS: None CLOSURE TECHNIQUE: Primary PRE-OP/PRE-PROCEDURE DIAGNOSIS: Renal failure POST-OP/POST-PROCEDURE DIAGNOSIS: Same as Preop SIGNATURE: Jeremy Aguirre MD PATIENT NAME: Zayda Davis DATE: September 08, 2023 TIME: 10:32 AM [facility] Nurse procedure note* Sedation Documentation - Sanjuanita Bustillos RN - 09/08/2023 10:27 AM EDT Catheter removed intact [facility]02-27-20[facility] Note* Exam Date Time Procedure Performing Provider Status 05/26/23 2:17 PM Echocardiogram, Adult - CV Auth (Verified) [facility] 01-29-2024 Discharge summary Author Cipriano Trujillo [facility] April 27, 2023 1:18pm Note Date/Time April 27, 2023 1 2:50pm [facility] Medical Records Department [address] [place] [address] Instructions for Home/Discharge Instructions 04/27/23 1249 MR#: [id number] Acct: [id number] Name: ZAYDA DAVIS Rep #:[id number] : 1965 57 From: Cipriano Trujillo MD PCP: Denisse Sutton NP-C Status:REG S DC Discharge Instructions Diet Discharge Diet: No restrictions Activity Lifting Restrictions: not > 20 lbs for 2 weeks Dressing / Incision Call your doctor if your incision/area has: Sudden Increased Bleeding, IncreasedPain/ Swelling, Increased Redness and Foul Smelling Discharge Call your doctor if you observe: Fever of 101 or Higher Remove Dressing in: 2 days Cleanse incision/area with: Soap & Water Follow Up Care Test Results: Test results from this visit will be discussed in further detail at your follow- up appointment, if applicable. Discharge Plan Admission Attending Provider: Cipriano Trujillo Primary Care Provider: Denisse Sutton NP Discharge Orders/Prescriptions Prescriptions: New oxycodone 5 mg tablet 5 mg PO Q8H PRN (Reason: pain) 3 Days Qty: 9 0RF Continued torsemide 100 mg tablet 50 mg PO BID melatonin 5 mg tablet 5 mg PO HS PRN (Reason: Sleep) gabapentin 300 mg capsule 300 mg PO TID PRN (Reason: NEUROPATHY) alprazolam [Xanax] 1 mg tablet 1 mg PO ONCE Qty: 1 0RF Rx Instructions: take prior to leaving home for surgery for fistula creation aspirin 81 MG tablet,chewable 81 mg PO DAILY@0800 Hold Instructions: Hold baby aspirin as patient is on Eliquis. atorvastatin 80 MG tablet 80 mg PO QHS carvedilol 12.5 mg tablet 6.25 mg PO BID acetaminophen [Tylenol] 325 mg Tablet 650 mg PO Q6H PRN PRN (Reason: Pain 1-10 Or Fever) Qty: 0 0RF amlodipine 10 MG tablet 10 mg PO DAILY insulin aspart U-100 [Novolog FlexPen U-100 Insulin] 100 unit/mL (3 mL) insulin pen 5 unit SUBCUT BID Patient Comments: AT LUNCH AND DINNER. IF BS LESS THAN 80 DO NOT GIVE insulin glargine U-300 conc [Toujeo SoloStar U-300 Insulin] 300 unit/mL (1.5 mL) insulin pen 20 unit SC BREAKFAST allopurinol 100 mg tablet 100 mg PO DAILY cholecalciferol (vitamin D3) 50 mcg (2,000 unit) capsule 50 mcg PO DAILY Alok Caps 1 mg capsule 1 cap PO DAILY Nephro-Todd 0.8 mg tablet 1 tab PO DAILY hydralazine 100 mg tablet 100 mg PO TID ranolazine 500 mg tablet extended release 12 hr 500 mg PO DAILY ezetimibe 10 mg tablet 10 mg PO QHS famotidine [Acid Controller] 10 mg tablet 20 mg PO DAILY Referrals / Follow Up: Denisse Sutton NP, [facility] [Primary Care Provider] - Disposition Disposition (needs filled in before D/C Order can be placed): Home, Self Care 04/27/23 1318<Electronically signed by Cipriano Trujillo MD>Cipriano Trujillo MD CC: [facility]-C Denisse Sutton ~ Signed [facility] Work Phone: [phone]) 595-534401-29-2024 Procedure [facility] 04-27-2023 History and physical note Author Cipriano Trujillo [facility] April 27, 2023 10:44am Note Date/Time April 27, 2023 1 0:45am [facility] Medical Records Department [address] [place] [address] History & Physical Exam 04/27/23 1044 MR#: [id number] Acct: [id number] Name: ZAYDA DAVIS Rep #:[id number] : 1965 57 From: Cipriano Trujillo MD PCP: TERESA Mas Status:[facility] Location: [place] [address] History and Physical Allergies No Known Allergies Allergy (Verified 04/15/23 14:35) Medications aspirin 81 mg chewable tablet 81 mg PO DAILY@0800 [facility] 07/15/18 [History Confirmed 04/15/23] atorvastatin 80 mg tablet 80 mg PO QHS CHOLESTEROL 08/04/18 [History Confirmed 04/15/23] torsemide 100 mg tablet 50 mg PO BID diuretic 04/14/19 [History Confirmed 04/15/23] melatonin 5 mg tablet 5 mg PO HS PRN Sleep 08/03/20 [History Confirmed 04/15/23] carvedilol 12.5 mg tablet 6.25 mg PO BID blood pressure 09/20/20 [History Confirmed 04/15/23] acetaminophen 325 mg tablet (Tylenol) 650 mg (2 x 325 mg) PO Q6H PRN PRN Pain 1- 10 Or Fever #0 tabs 10/03/20 [Rx Confirmed 04/15/23] amlodipine 10 mg tablet 10 mg PO DAILY blood pressure 01/20/21 [History Confirmed 04/15/23] insulin aspart U-100 100 unit/mL (3 mL) subcutaneous pen (Novolog FlexPen U-100 Insulin aspart) 5 unit subcut BID blood sugar 03/21/21 [History Confirmed 04/15/23] insulin glargine U-300 conc 300 unit/mL (1.5 mL) subcutaneous pen (Toujeo SoloStar U-300 Insulin) 20 unit subcut BREAKFAST diabetes 03/21/21 [History Confirmed 04/15/23] gabapentin 300 mg capsule 300 mg PO TID PRN NEUROPATHY 12/10/22 [History Confirmed 04/15/23] allopurinol 100 mg tablet 100 mg PO DAILY 01/13/23 [History Confirmed 04/15/23] cholecalciferol (vitamin D3) 50 mcg (2,000 unit) capsule 50 mcg PO DAILY 01/13/23 [History Confirmed 04/15/23] ezetimibe 10 mg tablet 10 mg PO QHS 01/13/23 [History Confirmed 04/15/23] hydralazine 100 mg tablet 100 mg PO TID 01/13/23 [History Confirmed 04/15/23] ranolazine 500 mg tablet,extended release,12 hr 500 mg PO DAILY 01/13/23 [History Confirmed 04/15/23] vitamin B complex and vitamin C no.20-folic acid 1 mg capsule ([place]vale Caps) 1 cap PO DAILY 01/13/23 [History Confirmed 04/15/23] vitamin B complex-vitamin C-folic acid 0.8 mg tablet (Nephro-Todd) 1 tab PO DAILY 01/13/23 [History Confirmed 04/15/23] famotidine 10 mg tablet (Acid Controller) 20 mg PO DAILY 03/03/23 [History Confirmed 04/15/23] alprazolam 1 mg tablet (Xanax) 1 mg PO ONCE #1 TAB 04/15/23 [Rx Confirmed 04/15/23] PFSH Medical History Acute alteration in mental status Acute renal injury due to circulatory failure Anxiety Atherosclerosis of coronary artery of [place] heart without angina pectoris Bilateral carotid bruits Cardiology follow-up encounter Cardiology follow-up encounter Chronic heart failure with preserved ejection fraction (HFpEF) Community acquired pneumonia COVID-19 (01/20/21) Debility Dependence on renal dialysis Depression Dietary restriction Easy bruising ESRD (end stage renal disease) on dialysis Essential hypertension Former smoker Generalized weakness GERD (gastroesophageal reflux disease) Headache History of cholelithiasis History of edema History of non-ST elevation myocardial infarction (NSTEMI) (01/20/21) History of renal calculi Hx of cardiovascular stress test Hx of echocardiogram Hyperlipidemia Hypoxia Inability to walk Insulin dependent diabetes mellitus Ischemic cerebrovascular accident (CVA) (04/2018) Low iron Malignant hypertension Morbid obesity Non-STEMI (non-ST elevated myocardial infarction) (01/20/21) Respiratory insufficiency TIA (transient ischemic attack) Type 2 diabetes mellitus without complication Wears glasses Surgical History History of appendectomy History of arteriovenostomy for renal dialysis (~03/2021) History of History of cholecystectomy History of coronary artery stent placement (06/2016) History of left heart catheterization (05/27/21) History of surgery Family History Mother Diabetes Heart disease HypertensionFather Hypertension Heart diseaseBrother Heart disease HypertensionSister Heart disease Diabetes Social History Smoking Status: Former smoker alcohol intake: never HPI HPI HPI: ZAYDA DAVIS, is a 57 F who presents to the office today for further discussion of her possible AV access surgery. Her sister is helpful in directingconversation. She continues to be emotional and fearful; she has had significantpersonality/mental status changes since prior stroke. It appears as if the majority of her angst revolves around IV access needs. ROS General General: Yes weight change; No appetite, fatigue, colon cancer, breast cancer or weakness HEENT HEENT: Yes eye surgery; No difficulty swallowing, eye injury, swollen glands or hoarseness Endo Endocrine: Yes diabetes mellitus; No thyroid disease, thyroid cancer, Hair loss, heat intolerance or cold intolerance Skin Skin: No rash or changing moles Musc Musculoskeletal: Yes arthritis; No back problems, rheumatoid arthritis, gout or joint pain Cardio Cardiovascular: Yes murmur, heart disease, high blood pressure, heart attack andheart stent; No pacemaker, atrial fibrillation, palpitations, shortness of breat with exertion or chest pain Psych Psychiatric: No depression, anxiety or hearing voices Resp Respiratory: Yes shortness of breath, Yes sleep apnea, No cough, No COPD, No asthma, No emphysema and No wheezing Gastro Gastrointestinal: No abdominal pain, No nausea or vomiting, No diarrhea, No constipation, No blood in stool, Yes acid reflux, No hemorrhoids, No ulcers, No gallbladder problem and No black,tarry stools [place] Hematologic: No blood thinners, No blood disorders, No bleeding, No anemia and No blood clots Neuro Neurologic: No system reviewed and no additional complaints, except as documented, No as per HPI, No abnormal gait, No abnormal hearing, No abnormal movements, No abnormal speech, No behavioral changes, No burning sensations, No confusion, No convulsions, No disequilibrium, No dizziness, No localized weakness, Yes frequent falls, No headache(s), No lack of coordination, No loss of vision, No memory loss, No numbness, No other visual disturbances, No radicular pain, No restless legs, No sensory deficit, No syncope, No tingling, No tremor(s), No weakness and No other Exam Const General: cooperative, healthy appearing, comfortable, no acute distress and welldeveloped Nutritional Appearance: well nourished Orientation: alert, awake and oriented x3 [facility] Head: normocephalic and atraumatic Ears: hearing grossly normal bilaterally Nose: external nose normal Eyes General: appearance normal, both eyes and all related structures EOM: EOM intact bilaterally Neck Neck: normal visual inspection, full ROM, no lymphadenopathy and trachea midline Thyroid: thyroid normal Lymphatic: no lymphadenopathy noted Resp Effort & Inspection: normal respiratory effort, able to speak in complete sentences, symmetric chest movement, no audible wheezes, not labored, no stridorand no use of accessory muscles Cardio Rate: regular rate Rhythm: regular rhythm Skin General: no rashes or lesions noted and no erythema Wounds: no wounds Neuro Cranial Nerves: CN's II-XI intact bilaterally and EOM intact bilaterally Speech: speech normal Motor: strength 5/5 throughout Sensory Exam: no sensory deficits noted Psych Appearance: grossly normal and well kempt Mental Status: mental status grossly abnormal Mood: congruent mood Affect: tearful Speech and Movement: speech and movement normal Attitude: guarded Thought Content: abnormal Judgment: limited Coding Level of Care Code Off vis,est,level 3 Diagnoses ESRD (end stage renal disease) on dialysis N18.6; Z99.2 Assessment and Plan Assessment and Plan (1) ESRD (end stage renal disease) on dialysis: Status: Chronic Plan: -right arm fistula 04/27/23 1044 <Electronically signed by Cipriano Trujillo MD> Cosigner Signature (if applicable): CC: TERESA Sutton; Dr. Cipriano Trujillo MD~ Signed [facility] Work Phone: 1([phone]) 920-903710-26-2023 History and physical note Author Cipriano Trujillo [facility] January 22, 2023 10:07am Note Date/Time January 22, 2023 7 :46am [facility] Medical Records Department [address] [place] [id number] History & Physical Exam 01/22/23 0733 MR#: [id number] Acct: [id number] Name: ZAYDA DAVIS Rep #:[id number] : 1965 57 From: Roya LUKE PCP: TERESA Mas Status:REG S DC Location: [facility] HPI - General HPI Narrative ZAYDA DAVIS, is a 57 F who presents for percutaneous AV fistula creation withDr. Trujillo. She has a thrombosed left basilic fistula. Currently using R IJ catheter for dialysis, no issues to this point. She did recently get poison sekou, she has a rash on her legs. No rash over her bilateral arms or upper body. She has been applying calamine lotion to the legs,has steroids prescribed but has not started them. Otherwise, no interval changesto her health or medications since her last OV. She denies any N/V, F/C, CP, SOB, palpitations. No complaints other than itchingfrom the poison sekou today. [facility] Medical History Acute alteration in mental status Acute renal injury due to circulatory failure Anxiety Atherosclerosis of coronary artery of [place] heart without angina pectoris Bilateral carotid bruits Cardiology follow-up encounter Cardiology follow-up encounter Chronic heart failure with preserved ejection fraction (HFpEF) Community acquired pneumonia COVID-19 (01/20/21) Debility Dependence on renal dialysis Depression Dietary restriction Easy bruising ESRD (end stage renal disease) on dialysis Essential hypertension Former smoker Generalized weakness GERD (gastroesophageal reflux disease) Headache History of cholelithiasis History of edema History of non-ST elevation myocardial infarction (NSTEMI) (01/20/21) History of renal calculi Hx of cardiovascular stress test Hx of echocardiogram Hyperlipidemia Hypoxia Inability to walk Insulin dependent diabetes mellitus Ischemic cerebrovascular accident (CVA) (04/2018) Low iron Malignant hypertension Morbid obesity Non-STEMI (non-ST elevated myocardial infarction) (01/20/21) Respiratory insufficiency TIA (transient ischemic attack) Type 2 diabetes mellitus without complication Wears glasses Home Medications aspirin 81 mg chewable tablet 81 mg PO DAILY@0800 [facility] 07/15/18 [History Last Taken 05/27/21] atorvastatin 80 mg tablet 80 mg PO QHS CHOLESTEROL 08/04/18 [History Last Taken 01/19/21] torsemide 100 mg tablet 50 mg PO BID diuretic 04/14/19 [History Last Taken 05/27/21] melatonin 5 mg tablet 5 mg PO HS PRN Sleep 08/03/20 [History Last Taken 01/19/21] carvedilol 12.5 mg tablet 6.25 mg PO BID blood pressure 09/20/20 [History Last Taken 05/27/21] acetaminophen 325 mg tablet (Tylenol) 650 mg (2 x 325 mg) PO Q6H PRN PRN Pain 1- 10 Or Fever #0 tabs 10/03/20 [Rx Last Taken Unknown] amlodipine 10 mg tablet 10 mg PO DAILY blood pressure 01/20/21 [History Last Taken 05/27/21] insulin aspart U-100 100 unit/mL (3 mL) subcutaneous pen (Novolog FlexPen U-100 Insulin aspart) 5 unit subcut BID blood sugar 03/21/21 [History Last Taken Unknown] insulin glargine U-300 conc 300 unit/mL (1.5 mL) subcutaneous pen (Toujeo SoloStar U-300 Insulin) 20 unit subcut BREAKFAST diabetes 03/21/21 [History Last Taken Unknown] gabapentin 300 mg capsule 300 mg PO TID PRN NEUROPATHY 12/10/22 [History Last Taken Unknown] metoprolol succinate 100 mg tablet,extended release 24 hr 100 mg PO DAILY 12/10/22 [History Last Taken Unknown] allopurinol 100 mg tablet 100 mg PO DAILY 01/13/23 [History Last Taken Unknown] cholecalciferol (vitamin D3) 50 mcg (2,000 unit) capsule 50 mcg PO DAILY 01/13/23 [History Last Taken Unknown] ezetimibe 10 mg tablet 10 mg PO QHS 01/13/23 [History Last Taken Unknown] hydralazine 100 mg tablet 100 mg PO TID 01/13/23 [History Last Taken Unknown] ranolazine 500 mg tablet,extended release,12 hr 500 mg PO DAILY 01/13/23 [History Last Taken Unknown] vitamin B complex and vitamin C no.20-folic acid 1 mg capsule (Alok Caps) 1 cap PO DAILY 01/13/23 [History Last Taken Unknown] vitamin B complex-vitamin C-folic acid 0.8 mg tablet (Nephro-Todd) 1 tab PO DAILY 01/13/23 [History Last Taken Unknown] Allergy/AdvReac Type Severity Reaction Status Date / Time No Known Allergies Allergy Verified 01/21/23 12:25 Family History Mother Diabetes Heart disease Hypertension Father Hypertension Heart disease Brother Heart disease Hypertension Sister Heart disease Diabetes Surgical History History of appendectomy History of arteriovenostomy for renal dialysis (~03/2021) History of History of cholecystectomy History of coronary artery stent placement (06/2016) History of left heart catheterization (05/27/21) History of surgery Social History Smoking Status: Former smoker alcohol intake: never Physical Exam Narrative Const General: cooperative, healthy appearing, comfortable, no acute distress and welldeveloped Nutritional Appearance: well nourished Orientation: alert, awake and oriented x3 [facility] Head: normocephalic and atraumatic Ears: hearing grossly normal bilaterally Nose: external nose normal Eyes General: appearance normal, both eyes and all related structures EOM: EOM intact bilaterally Neck Neck: normal visual inspection, full ROM, no lymphadenopathy and trachea midline Lymphatic: no lymphadenopathy noted Resp Effort & Inspection: normal respiratory effort, able to speak in complete sentences, symmetric chest movement, no audible wheezes, not labored, no stridorand no use of accessory muscles Auscultation: clear to auscultation bilaterally Cardio Rate: regular rate Rhythm: regular rhythm Pulses: brachial pulses present and radial pulses present Skin General: no rashes or lesions noted and no erythema Wounds: no wounds Neuro Cranial Nerves: CN's II-XI intact bilaterally and EOM intact bilaterally Speech: speech normal Psych Appearance: grossly normal and well kempt Mental Status: mental status grossly normal Mood: congruent mood Speech and Movement: speech and movement normal Thought Content: normal Judgment: judgment good Results Lab / Micro Data 01/22/23 06:42 01/22/23 06:42 Labs: Laboratory Results - last 24 hr 01/22/23 06:42: WBC 7.5, RBC 3.42 L, Hgb 10.9 L, Hct 34.8 L, MCV 101.8 H, MCH 31.9, MCHC 31.3 L, RDW Std Deviation 57.2 H, RDW Coeff of Chichi 15.6 H, Plt Count 153, MPV 11.6, Sodium 141, Potassium 4.9, Chloride 106, Carbon Dioxide 28.0, Anion Gap 7, BUN 82 H, Creatinine 6.85 H, Est GFR (MDRD) Af Amer 8 L, Est GFR (MDRD) Non-Af 7 L, BUN/Creatinine Ratio 12.0, Glucose 127 H, Calcium 8.2 L Assessment & Plan Assessment/Plan (1) ESRD (end stage renal disease) on dialysis: PLAN: All questions and concerns regarding procedure today were addressed. Patient and family remain agreeable to proceed. Plan is to continue with endovascular fistula creation. Current plan is for post-op follow-up in office on 02/11/2023. 01/22/23 0746 <Electronically signed by Roya LUKE> Cosigner Signature (if applicable): 01/22/23 1007 <Electronically signed by Cipriano Trujillo MD> CC: TERESA Sutton; MARLY Shirley; Dr. Cipriano Trujillo MD~ Signed [facility] Work Phone: [phone] 611-774410-26-2023 Procedure [facility] 11-18-2022 Hospital Discharge instructions Patient Education 11/18/2022 14:37:23 [facility] Discharge Instructions Template (12/2017) [facility] SAME DAY SURGERY DISCHARGE INSTRUCTIONS PLEASE FOLLOW THE INSTRUCTIONS BELOW MARKED WITH AN X: ___ Regular Diet: Start with clear liquids, then soup and crackers and gradually add other foods. ___ Drink extra fluids. _x_ Special Diet Instructions: _Follow your normal diet __ ACTIVITY: ___ Avoid stress to suture line. Since you have had an anesthetic, it would be advisable not to drive, drink alcohol, or make major decisions over the next 24 hours. You may require more rest tonight and tomorrow. ___ May resume regular activity as tolerated. ___ Restrict activity as follows: ___ ___ Walk Only ___ ___ Do not go up and down stairs. ___ Do not ride in car until ___ ___ Do not drive car. ___ Do not have sexual intercourse. ___ No heavy lifting, pushing or straining. _x_ Other: _Follow-up with Dr. Cash as instructed__ BATHING/SHOWERING: ___ Sponge bathe until office visit. ___ Sitting in tub of warm water may relieve discomfort. ___ May tub bathe ___ May shower ___ On day after surgery sit in tub of warm water to soak off dressing. DRESSING: ___ Keep operative area dry and clean for ___ ___ Check the operative area for signs of bleeding. Apply pressure to the bleeding site if necessary and call your physician. ___ Change dressing as necessary using sterile dressing material or bandaid. ___ Reinforce dressing as necessary. ___ Change and care for wound as follows: ___ ___ Wear bra for ___ days following breast surgery for comfort. ___ Change drip pad as needed. ___ Wear scrotal support for comfort. WATCH FOR SIGNS OF INFECTION: (Usually appears 36-48 hours after surgery) Increased temperature (101 degrees Fahrenheit or higher) Redness or swelling Increased pain Foul odor or drainage. If you have any questions, please call your doctor at the number listed on your follow up instructions. Follow all instructions given to you by your physician. Please complete and return the survey you will be receiving in the mail to help us better serve our patients. Form: [id number] ([id number]) R: 07/06 Follow Up Care 11/12/2022 13:59:37 With:LEE CASH MD Address: [address] [place] [address] [facility] [place] [address]- When: Unknown Comments:Follow-up with Dr. Cash [facility] 08-22-2023 Evaluation + Plan noteExtracted from: Title:IR pre-procedure H&P - LUE fistulogram Author:SLOANE MAK PA-C Date:11/18/22 IR PREPROCEDURE H&P UPDATE IF A HISTORY AND PHYSICAL EXAMINATION HAS BEEN COMPLETED PRIOR TO ADMISSION TO THE HOSPITAL, AN UPDATED EXAMINATION MUST BE COMPLETED AND DOCUMENTED WITHIN 24 HOURS AFTER ADMISSION OR REGISTRATION BUT BEFORE A SURGICAL PROCEDURE. I have examined the patient, reviewed the H&P, and there are no changes unless noted below: _ The most recent H&P/Office Note was performed on 10/28/2022 and can be found in the [facility] Electronic Medical Records ([facility]). Sloane Mak PA-C Interventional Radiology Pager: [phone] IR dept: x [phone] Available on [facility] Future Appointments Appointment Date:12/30/2022 03:00:00 PM Scheduled Provider:DENISSE SUTTON Location:[facility] Appointment Type:PC Wellness Medicare Appointment Date:01/09/2023 03:30:00 PM Scheduled Provider: Location:[facility] Appointment Type:DB Diabetic Individual Visit (AOH) Future Scheduled Tests Laboratory* Lipid Profile 05/28/22 * Vitamin D Level 05/28/22 * Complete Metabolic Panel 05/28/22 [facility] 08-22-2023 Note* Inez Chaney Vacuum Metalizing Supervisor: SIGN, AUTHOR, PERFORM, SIGN, AUTHOR Event Display: IR Procedure Record Authored Date: [id number] IR Procedure Record Summary Primary Physician: STEVIE WEST MD Finalized Date/Time: 11/18/22 11:03:48 Pt. Name: ZAYDA DAVIS /Sex: 1965 Female Med Rec #: [id number] Physician: Financial #: [id number] Pt. Type: S Room/Bed: [facility]/A Admit/Disch: 11/18/22 07:52:44 - Institution: Allergies identified in patient's electronic medical record at time of printing on 11/18/22 Entry 1 Substance NKA Reaction Type Allergy Last Modified By: SAPNA Bowles 07/16/18 17:33:02 Case Attendance- IR Entry 1 Entry 2 Entry 3 Case Attendee STEVIE WEST MD, Colten G Hershberger, Terra L Vacuum Metalizing Supervisor Role Performed Primary Surgeon Scrub Technologist Circulating Technologist Details Time In 11/18/22 10:17:00 11/18/22 10:17:00 11/18/22 10:17:00 Time Out 11/18/22 11:08:00 11/18/22 11:08:00 11/18/22 11:08:00 Procedure/Preference IR Arteriogram AV Shunt IR Arteriogram AV Shunt IR Arteriogram AV Shunt Card Fistulogram SN Fistulogram SN Fistulogram SN Last Modified By: Inez Chaney Terra L Hershberger, Terra L Vacuum Metalizing Supervisor 11/18/22 Vacuum Metalizing Supervisor 11/18/22 Vacuum Metalizing Supervisor 11/18/22 11:00:01 11:00:01 11:00:01 Entry 4 Case Attendee Emma Peng RN Role Performed Procedure Nurse Details Time In 11/18/22 10:17:00 Time Out 11/18/22 11:08:00 Procedure/Preference IR Arteriogram AV Shunt Card Fistulogram SN Last Modified By: Inez Chaney Vacuum Metalizing Supervisor 11/18/22 11:00:01 Radiology Procedures- IR Entry 1 Procedure/Preference IR Arteriogram AV Shunt Actual Procedure IR ARTERIOGRAM AV SHUNT Card Fistulogram SN FISTULOGRAM SN Primary Procedure Yes Primary Surgeon STEVIE WEST MD Anesthesia/Sedation Local Type Additional Procedure Times Start 11/18/22 10:35:00 Stop 11/18/22 10:47:00 Specialty Service SN Radiology Procedure EBL 2 mL Last Modified By: Emma Peng RN 11/18/22 10:47:30 Radiology Procedure Details - IR Entry 1 Radiology Sedation Case Times Sedation Total Time 0 Radiology - Fluid/Drainage Radiology Contrast Contrast Used? No Radiology Flouroscopy Fluoroscopy Used? No Fluoro Time 0 Radiology Local Local Used? No Radiology Procedure Site Site/Location left arm Site Condition No complications Dressing Type Bioclusive 4 X 5, Gauze Technologist Notes left fistulogram- sponge 4 X 4 unable to fix due to long time clot Last Modified By: Inez Chaney Garmor 11/18/22 11:03:47 General Case Data - IR Entry 1 Case Information Room AH IR 18 Case Level IR Level 3 Wound Class None Specialty SN Radiology Procedure ASA Class None Diagnosis Preop Diagnosis declot, esrd Postop Same As Preop Yes Postop Diagnosis declot, esrd Last Modified By: Emma Peng RN 11/18/22 10:40:41 Procedure Case Times- IR Entry 1 Patient In Procedure Patient In OR 11/18/22 10:17:00 Patient Out of OR 11/18/22 11:08:00 Procedure Start/Stop Procedure Start Time 11/18/22 10:35:00 Procedure Stop Time 11/18/22 10:47:00 Last Modified By: Inez Chaney Garmor 11/18/22 11:00:00 Immediate Post Procedure Note - IR Entry 1 Immediate Post Yes Procedure Note displayed for Physician to review Closure Technique Closure Technique Other than Primary Last Modified By: Emma Peng RN 11/18/22 10:40:09 Immediate Post Procedure Note - IR Signed By: STEVIE WEST MD 11/18/22 10:48 Allergy Information- IR Entry 1 Allergies Reviewed? Yes Allergies Reviewed Patient With Last Modified By: Emma Peng RN 11/18/22 10:37:18 Radiology Protocols/Time Out- IR Entry 1 Preprocedure Clinician Verifies Correct patient ID When Clinically Confirmation of correct using name & date Indicated side(s) and site(s), or MRN, Accurate Correct diagnostic and procedure, complete radiology tests Informed Consent, H & P available, Required update immediately blood products, prior to procedure, if implants, devices applicable and/or special equipment available OR/Procedure Room/Bedside Time 11/18/22 10:35:00 Clinician Verifies Correct patient identity including EMR & records using name and date or medical record number, Accurate procedure consent form, Correct patient position, Necessary equipment is available, Anticipated non-routine events with surgical team (case duration, estimated blood loss, patient specific concerns)., Acevedo patient factors for recovery and management identified with surgical team. When Applicable Confirmation correct Team Members STEVIE WEST MD, side and site marked, Present for Time Out Teddy King, Relevant images and Inez Chaney results are properly Vacuum Metalizing Supervisor, Danish, alejo and Emma Jordan RN appropriately displayed, Alcohol based prep dry, Double verification of sterility indicators complete Instrument Sterility Procedure IR Arteriogram AV Shunt Fistulogram SN Last Modified By: Emma Peng RN 11/18/22 10:39:38 Skin Prep- IR Entry 1 Procedure IR Arteriogram AV Shunt Fistulogram SN Skin Prep Prep Area Arm Side Left By Teddy King Prep Agents Chloraprep Hair Removal Method N/A Last Modified By: Emma Peng RN 11/18/22 10:39:53 Patient Positioning- IR Entry 1 Procedure IR Arteriogram AV Shunt Body Position OP Supine Fistulogram SN Feet Uncrossed? Yes Pressure Points Yes Checked Last Modified By: Emma Peng RN 11/18/22 10:39:59 Radiology Procedure Plan - IR Entry 1 Radiology - Nursing Care Plan Outcome Statement The patient Outcome Statement The patient receives demonstrates knowledge Cont. appropriate of the expected medication(s), safely responses to the administered during the operative/invasive perioperative/invasive procedure., The period., The patient is patient's value system, free from signs and lifestyle, ethnicity, symptoms of injury and culture are caused by extraneous considered, respected, objects (equipment, and incorporated in the instrumentation, perioperative plan of sponges, or sharps)., care., The patient is The patient is free free from signs and from signs and symptoms symptoms of infection., of electrical injury. The patient is free from signs and symptoms of injury related to positioning. Radiology - Action Plan Outcomes Met? Yes Steel Sampler Emma Peng RN Completing Procedure Plan Last Modified By: Emma Peng RN 11/18/22 10:40:22 Case Comments <None> Finalized By: Inez Chaney Document Signatures Signed By: Inez Chaney 11/18/22 11:00 Inez Chnaey Vacuum Metalizing Supervisor 11/18/22 11:03 [facility] 08-22-2023 Note IR Procedure Record Summary Primary Physician: STEVIE WEST MD Finalized Date/Time: 11/18/22 11:03:48 Pt. Name: ZAYDA DAVIS /Sex: 1965 Female Med Rec #: [id number] Physician: Financial #: [id number] Pt. Type: S Room/Bed: [facility]/A Admit/Disch: 11/18/22 07:52:44 - Institution: Allergies identified in patient's electronic medical record at time of printing on 11/18/22 Entry 1 Substance NKA Reaction Type Allergy Last Modified By: SAPNA Bowles 07/16/18 17:33:02 Case Attendance- IR Entry 1 Entry 2 Entry 3 Case Attendee STEVIE WEST MD, Colten G Hershberger, Terra L Vacuum Metalizing Supervisor Role Performed Primary Surgeon Scrub Technologist Circulating Technologist Details Time In 11/18/22 10:17:00 11/18/22 10:17:00 11/18/22 10:17:00 Time Out 11/18/22 11:08:00 11/18/22 11:08:00 11/18/22 11:08:00 Procedure/Preference IR Arteriogram AV Shunt IR Arteriogram AV Shunt IR Arteriogram AV Shunt Card Fistulogram SN Fistulogram SN Fistulogram SN Last Modified By: Inez Chaney Terra L Hershberger, Terra L Vacuum Metalizing Supervisor 11/18/22 Vacuum Metalizing Supervisor 11/18/22 Vacuum Metalizing Supervisor 11/18/22 11:00:01 11:00:01 11:00:01 Entry 4 Case Attendee Emma Peng RN Role Performed Procedure Nurse Details Time In 11/18/22 10:17:00 Time Out 11/18/22 11:08:00 Procedure/Preference IR Arteriogram AV Shunt Card Fistulogram SN Last Modified By: Inez Chaney Vacuum Metalizing Supervisor 11/18/22 11:00:01 Radiology Procedures- IR Entry 1 Procedure/Preference IR Arteriogram AV Shunt Actual Procedure IR ARTERIOGRAM AV SHUNT Card Fistulogram SN FISTULOGRAM SN Primary Procedure Yes Primary Surgeon STEVIE WEST MD Anesthesia/Sedation Local Type Additional Procedure Times Start 11/18/22 10:35:00 Stop 11/18/22 10:47:00 Specialty Service SN Radiology Procedure EBL 2 mL Last Modified By: Emma Peng RN 11/18/22 10:47:30 Radiology Procedure Details - IR Entry 1 Radiology Sedation Case Times Sedation Total Time 0 Radiology - Fluid/Drainage Radiology Contrast Contrast Used? No Radiology Flouroscopy Fluoroscopy Used? No Fluoro Time 0 Radiology Local Local Used? No Radiology Procedure Site Site/Location left arm Site Condition No complications Dressing Type Bioclusive 4 X 5, Gauze Technologist Notes left fistulogram- sponge 4 X 4 unable to fix due to long time clot Last Modified By: Inez Chaney Vacuum Metalizing Supervisor 11/18/22 11:03:47 General Case Data - IR Entry 1 Case Information Room IR 18 Case Level IR Level 3 Wound Class None Specialty SN Radiology Procedure ASA Class None Diagnosis Preop Diagnosis declot, esrd Postop Same As Preop Yes Postop Diagnosis declot, esrd Last Modified By: Emma Pegn RN 11/18/22 10:40:41 Procedure Case Times- IR Entry 1 Patient In Procedure Patient In OR 11/18/22 10:17:00 Patient Out of OR 11/18/22 11:08:00 Procedure Start/Stop Procedure Start Time 11/18/22 10:35:00 Procedure Stop Time 11/18/22 10:47:00 Last Modified By: Inez Chaney Garmor 11/18/22 11:00:00 Immediate Post Procedure Note - IR Entry 1 Immediate Post Yes Procedure Note displayed for Physician to review Closure Technique Closure Technique Other than Primary Last Modified By: Emma Peng RN 11/18/22 10:40:09 Immediate Post Procedure Note - IR Signed By: STEVIE WEST MD 11/18/22 10:48 Allergy Information- IR Entry 1 Allergies Reviewed? Yes Allergies Reviewed Patient With Last Modified By: Emma Peng RN 11/18/22 10:37:18 Radiology Protocols/Time Out- IR Entry 1 Preprocedure Clinician Verifies Correct patient ID When Clinically Confirmation of correct using name & date Indicated side(s) and site(s), or MRN, Accurate Correct diagnostic and procedure, complete radiology tests Informed Consent, H & P available, Required update immediately blood products, prior to procedure, if implants, devices applicable and/or special equipment available OR/Procedure Room/Bedside Time 11/18/22 10:35:00 Clinician Verifies Correct patient identity including EMR & records using name and date or medical record number, Accurate procedure consent form, Correct patient position, Necessary equipment is available, Anticipated non-routine events with surgical team (case duration, estimated blood loss, patient specific concerns)., Acevedo patient factors for recovery and management identified with surgical team. When Applicable Confirmation correct Team Members STEVIE WEST MD, side and site marked, Present for Time Out Teddy King, Relevant images and Inez Chaney results are properly Vacuum Metalizing Supervisor, Danish, labeled and Emma Jordan RN appropriately displayed, Alcohol based prep dry, Double verification of sterility indicators complete Instrument Sterility Procedure IR Arteriogram AV Shunt Fistulogram SN Last Modified By: Emma Peng RN 11/18/22 10:39:38 Skin Prep- IR Entry 1 Procedure IR Arteriogram AV Shunt Fistulogram SN Skin Prep Prep Area Arm Side Left By Teddy King Prep Agents Chloraprep Hair Removal Method N/A Last Modified By: Emma Peng RN 11/18/22 10:39:53 Patient Positioning- IR Entry 1 Procedure IR Arteriogram AV Shunt Body Position OP Supine Fistulogram SN Feet Uncrossed? Yes Pressure Points Yes Checked Last Modified By: Emma Peng RN 11/18/22 10:39:59 Radiology Procedure Plan - IR Entry 1 Radiology - Nursing Care Plan Outcome Statement The patient Outcome Statement The patient receives demonstrates knowledge Cont. appropriate of the expected medication(s), safely responses to the administered during the operative/invasive perioperative/invasive procedure., The period., The patient is patient's value system, free from signs and lifestyle, ethnicity, symptoms of injury and culture are caused by extraneous considered, respected, objects (equipment, and incorporated in the instrumentation, perioperative plan of sponges, or sharps)., care., The patient is The patient is free free from signs and from signs and symptoms symptoms of infection., of electrical injury. The patient is free from signs and symptoms of injury related to positioning. Radiology - Action Plan Outcomes Met? Yes Steel Sampler Emma Peng RN Completing Procedure Plan Last Modified By: Emma Peng RN 11/18/22 10:40:22 Case Comments Finalized By: Inez Chaney Garmor Document Signatures Signed By: Inez Chaney 11/18/22 11:00 Inez Chaney Vacuum Metalizing Supervisor 11/18/22 11:03 [id number] History and physical note IR PREPROCEDURE H&P UPDATE IF A HISTORY AND PHYSICAL EXAMINATION HAS BEEN COMPLETED PRIOR TO ADMISSION TO THE HOSPITAL, AN UPDATED EXAMINATION MUST BE COMPLETED AND DOCUMENTED WITHIN 24 HOURS AFTER ADMISSION OR REGISTRATION BUT BEFORE A SURGICAL PROCEDURE. I have examined the patient, reviewed the H&P, and there are no changes unless noted below: _ The most recent H&P/Office Note was performed on 10/28/2022 and can be found in the [facility] Electronic Medical Records ([place]). Sloane Mak PA-C Interventional Radiology Pager: [phone] IR dept: x [id number] Available on [employer] Digitally Signed by SLOANE MAK PA-C on 11/18/2022 09:28 AM Digitally Signed by STEVIE WEST MD on 11/18/2022 10:06 AM [id number] Discharge instructions Patient Education 11/10/2022 23:17:41 Hand Contusion Hand Contusion You have a contusion. This is also called a bruise. There is swelling and some bleeding under the skin, but no broken bones. This injury generally takes a few days to a few weeks to heal. During thattime, the bruise will typically change in color from reddish, to purple-blue, to greenish-yellow, then to yellow-brown. Home care Elevate the hand to reduce pain and swelling. As much as possible, sit or lie down with the hand raised about the level of your heart. This is especially important during the first 48 hours. Ice the hand to help reduce pain and swelling. Wrap a cold source (ice pack or ice cubes in a plastic bag) in a thin towel. Apply to the bruised area for 20 minutes every 1 to 2 hours the first day. Continue this 3 to 4 times a day until the pain and swelling goes away. Unless another medicine was prescribed, you can take acetaminophen, ibuprofen, or naproxen to control pain. (If you have chronic liver or kidney disease or ever had a stomach ulcer or gastrointestinal bleeding, talk with your doctor before using these medicines.) Follow up Follow up with your healthcare provider or our staff as advised. Call if you are not improving within 1 to 2 weeks. When to seek medical advice Call your healthcare provider right away if you have any of the following: Increased pain or swelling Arm becomes cold, blue, numb or tingly Signs of infection: Warmth, drainage, or increased redness or pain around the bruise Inability to move the injured hand Frequent bruising for unknown reasons [id number] [employer]. [address] [place] [address], [place] [address]. All rights reserved. This information is not intended as a substitute for professional medical care. Always follow yourhealthcare professional's instructions. 11/10/2022 23:17:39 Soft Tissue Contusion Soft Tissue Contusion You have a contusion. This is also called a bruise. There is swelling and some bleeding under the skin. This injury generally takes a few days to a few weeks to heal. During that time, the bruise will typically change in color from reddish, to purple-blue, to greenish-yellow, then to yellow-brown. Home care Elevate the injured area to reduce pain and swelling. As much as possible, sit or lie down with theinjured area raised about the level of your heart. This is especially important during the first 48hours. Ice the injured area to help reduce pain and swelling. Wrap a cold source (ice pack or ice cubes laxmi plastic bag) in a thin towel. Apply to the bruised area for 20 minutes every 1 to 2 hours the first day. Continue this 3 to 4 times a day until the pain and swelling goes away. Unless another medicine was prescribed, you can take acetaminophen, ibuprofen, or naproxen to control pain. (If you have chronic liver or kidney disease or ever had a stomach ulcer or gastrointestinal bleeding, talk with your doctor before using these medicines.) Follow-up care Follow up with your healthcare provider or our staff as advised. Call if you are not better in 1 to2 weeks. When to seek medical advice Call your healthcare provider right away if you have any of the following: Increased pain or swelling Bruise is on an arm or leg and arm or leg becomes cold, blue, numb or tingly Signs of infection: Warmth, drainage, or increased redness or pain around the contusion Inability to move the injured area or body part Bruise is near your eye and you have problems with your eyesight or eye Frequent bruising for unknown reasons [id number] [employer]. [address] [place] [address]. All rights reserved. This information is not intended as a substitute for professional medical care. Always follow yourhealthcare professional's instructions. Follow Up Care 11/10/2022 22:28:34 With:DENISSE SUTTON Address: [address] [place] [address] [phone] When:2-[address] [facility] 08-14-2023 Note Discharge Instructions Thank you for allowing [facility] to assist you with your healthcare needs. The following is importantdischarge information regarding your hospital visit. Diagnosis from Today's Visit Abrasion Contusion of hand Fall What to Do Next Instructions from Your Care Team No qualifying data available. Post Acute Orders No qualifying data available. You Need to Schedule the Following Appointments Follow Up with DENISSE SUTTON When Within 2-4 days Where: [place] [address]- [phone] Allergies NKA Medications Please ask your primary doctor or pharmacist before taking any other medication not listed, including over the counter drugs, herbal medications, vitamins and or supplements as they may interact withyour home medications. What How Much When Why Instructions Last Dose Unchanged allopurinol (allopurinol 100 mg oral tablet) 1 tab(s) by mouth Once a day Duration: 90 Days Unchanged amLODIPine (amLODIPine 10 mg oral tablet) 1 tab(s) by mouth Once a day Unchanged aspirin (aspirin 81 mg oral delayed release tablet) 1 tab(s) by mouth Once a day Unchanged atorvastatin (atorvastatin 80 mg oral tablet) 1 tab(s) by mouth Once a day Unchanged carvedilol (Coreg 12.5 mg oral tablet) 1 tab(s) by mouth Two (2) times a day Unchanged cholecalciferol (Vitamin D3 50 mcg (1999 intl units) oral capsule) 1 tab(s) by mouth Every day Unchanged DME (Blood Glucose Test Strips) See instructions 1 bottle of 100. Dorian Dunn. Testing QID. dx: E10.9 Sent in absence of PCP Unchanged ezetimibe (Zetia 10 mg oral tablet) 1 tab(s) by mouth Once a day Unchanged gabapentin (gabapentin 100 mg oral capsule) 1 cap by mouth Two (2) times a day Leg pain Duration: 30 Days Unchanged hydrALAZINE (hydrALAZINE 100 mg oral tablet) 1 tab(s) by mouth Three (3) times a day Duration: 30 Days Unchanged insulin glargine (Toujeo Max SoloStar 300 units/ mL subcutaneous solution) 20 unit(s) Subcutaneous Once a day Duration: 30 Days sent in absence of PCP Unchanged insulin lispro (HumaLOG) (HumaLOG KwikPen 100 units/ mL injectable PEN) 5 unit(s) Subcutaneous Two (2) times daily before meals Unchanged melatonin (melatonin 5 mg oral tablet) 1 tab(s) by mouth Daily at bedtime as needed for as needed for insomnia Unchanged multivitamin (Nephro-Todd oral tablet) 1 tab(s) by mouth Once a day Please take this list to your next doctor s visit. Bring all medications you take, including over the counter medications, herbals and other supplements with you to your doctor s visit. Patients and families are reminded to discard old lists and to update any records with all medication providers or retail pharmacies. Education Materials Hand Contusion You have a contusion. This is also called a bruise. There is swelling and some bleeding under the skin, but no broken bones. This injury generally takes a few days to a few weeks to heal. During thattime, the bruise will typically change in color from reddish, to purple-blue, to greenish-yellow, then to yellow-brown. Home care Elevate the hand to reduce pain and swelling. As much as possible, sit or lie down with the hand raised about the level of your heart. This is especially important during the first 48 hours. Ice the hand to help reduce pain and swelling. Wrap a cold source (ice pack or ice cubes in a plastic bag) in a thin towel. Apply to the bruised area for 20 minutes every 1 to 2 hours the first day. Continue this 3 to 4 times a day until the pain and swelling goes away. Unless another medicine was prescribed, you can take acetaminophen, ibuprofen, or naproxen to control pain. (If you have chronic liver or kidney disease or ever had a stomach ulcer or gastrointestinal bleeding, talk with your doctor before using these medicines.) Follow up Follow up with your healthcare provider or our staff as advised. Call if you are not improving within 1 to 2 weeks. When to seek medical advice Call your healthcare provider right away if you have any of the following: Increased pain or swelling Arm becomes cold, blue, numb or tingly Signs of infection: Warmth, drainage, or increased redness or pain around the bruise Inability to move the injured hand Frequent bruising for unknown reasons [id number] [employer]. [address] [place] [address]. All rights reserved. This information is not intended as a substitute for professional medical care. Always follow yourhealthcare professional's instructions. Soft Tissue Contusion You have a contusion. This is also called a bruise. There is swelling and some bleeding under the skin. This injury generally takes a few days to a few weeks to heal. During that time, the bruise will typically change in color from reddish, to purple-blue, to greenish-yellow, then to yellow-brown. Home care Elevate the injured area to reduce pain and swelling. As much as possible, sit or lie down with theinjured area raised about the level of your heart. This is especially important during the first 48hours. Ice the injured area to help reduce pain and swelling. Wrap a cold source (ice pack or ice cubes laxmi plastic bag) in a thin towel. Apply to the bruised area for 20 minutes every 1 to 2 hours the first day. Continue this 3 to 4 times a day until the pain and swelling goes away. Unless another medicine was prescribed, you can take acetaminophen, ibuprofen, or naproxen to control pain. (If you have chronic liver or kidney disease or ever had a stomach ulcer or gastrointestinal bleeding, talk with your doctor before using these medicines.) Follow-up care Follow up with your healthcare provider or our staff as advised. Call if you are not better in 1 to2 weeks. When to seek medical advice Call your healthcare provider right away if you have any of the following: Increased pain or swelling Bruise is on an arm or leg and arm or leg becomes cold, blue, numb or tingly Signs of infection: Warmth, drainage, or increased redness or pain around the contusion Inability to move the injured area or body part Bruise is near your eye and you have problems with your eyesight or eye Frequent bruising for unknown reasons [id number] [employer]. [address] [place] [address]. All rights reserved. This information is not intended as a substitute for professional medical care. Always follow yourhealthcare professional's instructions. Additional Information VACCINATE! IT SAVES LIVES! Members of the community who have not yet received the COVID-19 vaccine and would like to receive it can visit one of [facility] vaccine clinics. There are many vaccine clinic locations within the [facility]. For locations and available times, please visit www.gettheshot.coronavirus.[place].gov/. It is important to note that some COVID mobile vaccine clinics are held outdoors and may be canceled in rainy or stormy conditions. To learn more about pediatric vaccinations (ages 5-11), we invite you to visit the [facility] webpage. https://www.[facility].org/pages/8108-Aaeis-Qidybmatiaq-Bgxdmytomz-Tejlp-Kia stions.htmlTo learn more about the COVID-19 vaccine, we invite you to visit the CDC website for a list of frequently asked questions. https://www.cdc.gov/coronavirus/2019-ncov/vaccines/faq.html [facility] Patient Portal Access Instructions: Stay connected with your healthcare team and access your personal medical information anytime with the [facility] Patient Portal. If you would like a full copy of your medical records please contact the [facility] Medical Records Department Thursday through Thursday between 8a.m. and 4:30p.m. Please follow the directions below to access the portal: 1.Access the email account you provided upon registration to the hospital.2.Look for an invitation email from [facility].3.Open the email and access the invitation link: Accept Invitation to [facility].Fill in the required gilmore to create your account. Sign into www.[employer] with your username and password that you created in the above steps to stay up to date. You can then view a summary of results, a summary of your visits, and the ability to download your summaries to your computer or send the information securely to a physician. Remember that your healthcare information is confidential, so carefully consider who you will allow to register on the [facility] Patient Portal for access to your information. You can also access the [facility] Patient Portal on the [employer] toby. Simply click on Health Records under [employer] and then click on the [employer] logo. HOW TO SAFELY DISPOSE OF PRESCRIPTION MEDICATIONS Please use one of the following methods to safely dispose of your unused medications. 1.Use a drug disposal kit: the drug disposal pouch allows you to safely discard your old and unuseddrugs. Ask your nurse to give you one when you are discharged.2.Visit a local take-back location: Many local pharmacies and police departments have programs that collect old and unwanted prescriptiondrugs. Call your local pharmacy or go to http://britebill.[employer]/0L1Fe6j to find one close to you.3.Make use of household items: Use cat litter or old coffee grounds to dispose medications if other options arenot available. Mix your drugs with these household products, seal them in an airtight container andthrow it into the garbage. Call [facility]: [phone] to be sure your drugs can be disposed of in this way. Some medicines may require a different approach.4.Never flush your medications down the toilet. IF YOU HAVE BEEN PRESCRIBED AN OPIOIDS FOR PAIN If you have been prescribed an opioid (such as hydrocodone, oxycodone or morphine), it is critical to understand the possible side effects and risks of opioid pain medications. Even when taken as directed, opioids can have several side effects including: Tolerance, meaning you might need to take more of a medication for the same pain relief. Nausea, vomiting and/or constipation. Sleepiness, dizziness, dry mouth, confusion, depression or itching. Physical dependence, meaning you have withdrawal symptoms when a medication is stopped ? this can develop within a few days. KNOW YOUR RESPONSIBILITIES It is important to know exactly how much and how often to take the opioid pain medications you are prescribed. Never take opioids in higher amounts or more often than prescribed. Do not combine opioids with alcohol or other drugs that cause drowsiness, such as benzodiazepines, also known as benzos,including diazepam and alprazolam, muscle relaxants or sleep aids. Never sell or share prescriptionopioids. This is illegal. Store opioids in a secure place and out of reach of others (including children, family, friends and visitors). The last page(s) of this document has been signed and retained as a CHART COPY Signatures Patient Education Materials Hand Contusion Soft Tissue Contusion Medication Leaflets My discharge plan and instructions have been reviewed and explained to me and I,ARASH ZAYDA Karie understand my current condition and have read and understand these discharge instructions. I have received a written copy of the plan/instructions. If I have questions, I am aware that I should contactmy doctor. Patient/Identity Management Developer Signature: Date/Time: Relationship to Patient: Witness Name/Signature: Date/Time: [facility]08-14-2023 Note ORIGINAL EXAMINATION: THREE XRAY VIEWS OF THE LEFT ELBOW; THREE XRAY VIEWS OF THE LEFT HAND 11/10/2022 11:02 pm COMPARISON: None. HISTORY: ORDERING SYSTEM PROVIDED HISTORY: Reason for Exam: fall FINDINGS: Left elbow: No acute fracture or dislocation. Normal osseous mineralization. No visible aggressive osseous lesions. Preserved radiocapitellar and ulnotrochlear joint spaces, however tiny ulnotrochlear osteophytes are suspected. No elbow effusion. Mild enthesopathy at the common flexor tendon origin and to a lesser extent the common extensor tendon origin. Scattered surgical clips. Left hand: No acute fracture or dislocation. Osseous mineralization is within normal limits. No visible aggressive osseous lesions. Scattered mild joint space narrowing. Normal carpal arcs. No visible radiopaque foreign body. IMPRESSION: 1. No acute osseous abnormalities of left elbow or left hand. Interpreted by: Gelacio Little DO Preliminary Report By: Gelacio Little DO Electronically signed By Gelacio Little DO Dictated Date: 11/10/2022 11:06:51 PM Prelim Date: 11/10/2022 11:08:59 PM Sign Date: 11/10/2022 11:08:59 PM Ordering Provider[facility]23 Note ORIGINAL EXAMINATION: THREE XRAY VIEWS OF THE LEFT ELBOW; THREE XRAY VIEWS OF THE LEFT HAND 11/10/2022 11:02 pm COMPARISON: None. HISTORY: ORDERING SYSTEM PROVIDED HISTORY: Reason for Exam: fall FINDINGS: Left elbow: No acute fracture or dislocation. Normal osseous mineralization. No visible aggressive osseous lesions. Preserved radiocapitellar and ulnotrochlear joint spaces, however tiny ulnotrochlear osteophytes are suspected. No elbow effusion. Mild enthesopathy at the common flexor tendon origin and to a lesser extent the common extensor tendon origin. Scattered surgical clips. Left hand: No acute fracture or dislocation. Osseous mineralization is within normal limits. No visible aggressive osseous lesions. Scattered mild joint space narrowing. Normal carpal arcs. No visible radiopaque foreign body. IMPRESSION: 1. No acute osseous abnormalities of left elbow or left hand. Interpreted by: Gelacio Little DO Preliminary Report By: Gelacio Little DO Electronically signed By Gelacio Little DO Dictated Date: 11/10/2022 11:06:51 PM Prelim Date: 11/10/2022 11:08:59 PM Sign Date: 11/10/2022 11:08:59 PM Ordering Provider: [facility]23 Hospital Discharge instructions Patient Education 10/24/2022 16:24:52 Dialysis Vascular Access Malfunction Dialysis Vascular Access Malfunction A vascular access is an entrance to your blood vessels that can be used for dialysis. Dialysis is atreatment used for kidney failure. A health care provider can make a vascular access in many ways, such as by: Joining an artery to a vein under your skin to make a bigger blood vessel called a fistula. Joining an artery to a vein under your skin using a soft tube called a graft. Placing a thin, flexible tube (catheter) in a large vein, usually in your neck, chest, or groin. A vascular access can become blocked or stop working correctly (malfunction). What can cause my vascular access to malfunction? Infection. This is the most common cause of malfunction. A blood clot inside a part of the fistula, graft, or catheter. A blood clot can completely or partially block the flow of blood. A kink in the graft or catheter. A collection of blood (hematoma or bruise) next to the graft or catheter that pushes against it, blocking the flow of blood. What are signs and symptoms of vascular access malfunction? Signs and symptoms of vascular access malfunction include: A change in the vibration or pulse (thrill) of your fistula or graft. The thrill of your fistula or graft being gone. New or unusual swelling of the area around the access. An unsuccessful puncture of your access by the dialysis team. The flow of blood through the fistula, graft, or catheter being too slow for effective dialysis. Bleeding that cannot be easily controlled when routine dialysis is completed and the needle is removed. Signs of infection such as pain, swelling, redness, red streaks, numbness, and blood or pus coming from or around the access. What happens if my vascular access malfunctions? If your vascular access malfunctions, your health care provider may order blood work, cultures, or an X-ray test to find out what went wrong. The X-ray test involves the injection of a dye (contrast)into the vascular access. The contrast shows up on the X-ray and lets your health care provider seeif there is a blockage in the vascular access. Treatment varies depending on the cause of the malfunction: If the vascular access is infected, your health care provider may prescribe antibiotic medicine to control the infection. If a clot is found in the vascular access, you may need surgery to remove the clot. Blood thinning medicines may also be used. If a blockage in the vascular access is due to some other cause, such as a kink in a graft, you will likely need surgery to unblock or replace the graft. If there is a malfunction for any reason, your health care provider may remove and replace your access. Follow these instructions at home: Medicines Take joxz-tix-pesmqmi and prescription medicines only as told by your health care provider. If you were prescribed an antibiotic medicine, use it as told by your health care provider. Do not stop using the antibiotic even if you start to feel better. Activity Do not lift heavy things with the arm that has the access. Try not to bump or hurt the arm that has the access. Lifestyle Do not wear jewelry or tight clothing around the access. Do not sleep by placing the access arm under your head or body. General instructions Wash your hands with soap and water before touching the area around the vascular access. If soap and water are not available, use hand sales representative electric service. Keep all follow-up visits as told by your health care provider. This is very important. Any delay in follow-up could cause permanent dysfunction of the vascular access, which may be dangerous. Do not measure your blood pressure on the arm that has the access. Keep the access area clean and do not use makeup, creams, lotions, or ointments on it. Check your access area every day for signs of infection. Check for: ?More redness, swelling, or pain. ?More fluid or blood. ?Warmth. ?Pus or a bad smell. Contact a health care provider if: Swelling around the vascular access gets worse. You develop new pain. Get help right away if: You have bleeding at the vascular access that cannot be easily controlled. You have pain, numbness, an unusual pale skin color, or blue fingers or sores at the tips of your fingers in the hand on the side of your fistula. You have chills. You have a fever. You have pus or other fluid (drainage) at the vascular access site. You develop skin redness or red streaking on the skin around, above, or below the vascular access. Your access is hot, swollen, red, and very painful. You can suddenly see the cuff of your catheter used in the access. Summary A vascular access is an entrance to your blood vessels that can be used for dialysis. Several things can cause your vascular access to malfunction. Treatment varies depending on the cause of the malfunction. Keep all follow-up visits as told by your health care provider. Any delay in follow-up could cause permanent dysfunction of the vascular access, which may be dangerous. This information is not intended to replace advice given to you by your health care provider. Make sure you discuss any questions you have with your health care provider. Document Released: 02/16/2007 Document Revised: 06/11/2018 Document Reviewed: 04/10/2017 [employer] Patient Education 2020 [employer] Follow Up Care 10/23/2022 14:43:03 With:Go to emergency room if symptoms worsen Address:Unknown When:1-2 days With:DENISSE SUTTON Address: [address] [place] [address] [phone] When:1-2 days [facility] 07-28-2023 Note Discharge Instructions Thank you for allowing [facility] to assist you with your healthcare needs. The following is importantdischarge information regarding your hospital visit. Your Care Team DENISSE SUTTON Your Diagnosis (HFpEF) heart failure with preserved ejection fraction AV fistula thrombosis Dialysis problem - needs new port ESRD on hemodialysis Leg pain Type 2 diabetes mellitus What to do next Scheduled Follow-Up Appointments Appointment Type When With Where Contact [facility] Follow-Up 10/28/2022 03:00 PM EDT DENISSE SUTTON [facility] db Diabetic Individual Visit ([facility]) 01/09/2023 03:30 PM EDT [place] [facility] Visits [phone] Follow Up Appointments Follow Up with Go to emergency room if symptoms worsen When Within 1-2 days Follow Up with DENISSE SUTTON When Within 1-2 days Where: [address] [place] [place] [address] [phone] The Following Activity and Diet Have Been Ordered for You Discharge Activity - Ordered -- NO activity restrictions, 10/24/22 14:56:00 EDT Discharge Diet - Ordered -- No changes were made to your diet during your hospital stay. Please resume your pre hospitalization diet on discharge., 10/24/22 14:56:00 EDT Allergies NK[facility] Medications Please ask your primary doctor or pharmacist before taking any other medication not listed, including over the counter drugs, herbal medications, vitamins and or supplements as they may interact withyour home medications. What How Much When Why Instructions Last Dose Unchanged allopurinol (allopurinol 100 mg oral tablet) 1 tab(s) by mouth Once a day Duration: 90 Days Unchanged amLODIPine (amLODIPine 10 mg oral tablet) 1 tab(s) by mouth Once a day Unchanged aspirin (aspirin 81 mg oral delayed release tablet) 1 tab(s) by mouth Once a day Unchanged atorvastatin (atorvastatin 80 mg oral tablet) 1 tab(s) by mouth Once a day Unchanged carvedilol (Coreg 12.5 mg oral tablet) 1 tab(s) by mouth Two (2) times a day Unchanged cholecalciferol (Vitamin D3 50 mcg (2000 intl units) oral capsule) 1 tab(s) by mouth Every day Unchanged ezetimibe (Zetia 10 mg oral tablet) 1 tab(s) by mouth Once a day Unchanged gabapentin (gabapentin 100 mg oral capsule) 1 cap by mouth Two (2) times a day Leg pain Duration: 30 Days Unchanged hydrALAZINE (hydrALAZINE 100 mg oral tablet) 1 tab(s) by mouth Three (3) times a day Duration: 30 Days Unchanged insulin glargine (Toujeo Max SoloStar 300 units/ mL subcutaneous solution) 20 unit(s) Subcutaneous Once a day Duration: 30 Days sent in absence of PCP Unchanged insulin lispro (HumaLOG) (HumaLOG KwikPen 100 units/ mL injectable PEN) 5 unit(s) Subcutaneous Two (2) times daily before meals Unchanged melatonin (melatonin 5 mg oral tablet) 1 tab(s) by mouth Daily at bedtime as needed for as needed for insomnia Unchanged multivitamin (Nephro-Todd oral tablet) 1 tab(s) by mouth Once a day Please take this list to your next doctor s visit. Bring all medications you take, including over the counter medications, herbals and other supplements with you to your doctor s visit. Patients and families are reminded to discard old lists and to update any records with all medication providers or retail pharmacies. Education Materials Dialysis Vascular Access Malfunction A vascular access is an entrance to your blood vessels that can be used for dialysis. Dialysis is atreatment used for kidney failure. A health care provider can make a vascular access in many ways, such as by: Joining an artery to a vein under your skin to make a bigger blood vessel called a fistula. Joining an artery to a vein under your skin using a soft tube called a graft. Placing a thin, flexible tube (catheter) in a large vein, usually in your neck, chest, or groin. A vascular access can become blocked or stop working correctly (malfunction). What can cause my vascular access to malfunction? Infection. This is the most common cause of malfunction. A blood clot inside a part of the fistula, graft, or catheter. A blood clot can completely or partially block the flow of blood. A kink in the graft or catheter. A collection of blood (hematoma or bruise) next to the graft or catheter that pushes against it, blocking the flow of blood. What are signs and symptoms of vascular access malfunction? Signs and symptoms of vascular access malfunction include: A change in the vibration or pulse (thrill) of your fistula or graft. The thrill of your fistula or graft being gone. New or unusual swelling of the area around the access. An unsuccessful puncture of your access by the dialysis team. The flow of blood through the fistula, graft, or catheter being too slow for effective dialysis. Bleeding that cannot be easily controlled when routine dialysis is completed and the needle is removed. Signs of infection such as pain, swelling, redness, red streaks, numbness, and blood or pus coming from or around the access. What happens if my vascular access malfunctions? If your vascular access malfunctions, your health care provider may order blood work, cultures, or an X-ray test to find out what went wrong. The X-ray test involves the injection of a dye (contrast)into the vascular access. The contrast shows up on the X-ray and lets your health care provider seeif there is a blockage in the vascular access. Treatment varies depending on the cause of the malfunction: If the vascular access is infected, your health care provider may prescribe antibiotic medicine to control the infection. If a clot is found in the vascular access, you may need surgery to remove the clot. Blood thinning medicines may also be used. If a blockage in the vascular access is due to some other cause, such as a kink in a graft, you will likely need surgery to unblock or replace the graft. If there is a malfunction for any reason, your health care provider may remove and replace your access. Follow these instructions at home: Medicines Take liwv-joe-wfdnfee and prescription medicines only as told by your health care provider. If you were prescribed an antibiotic medicine, use it as told by your health care provider. Do not stop using the antibiotic even if you start to feel better. Activity Do not lift heavy things with the arm that has the access. Try not to bump or hurt the arm that has the access. Lifestyle Do not wear jewelry or tight clothing around the access. Do not sleep by placing the access arm under your head or body. General instructions Wash your hands with soap and water before touching the area around the vascular access. If soap and water are not available, use hand sales representative electric service. Keep all follow-up visits as told by your health care provider. This is very important. Any delay in follow-up could cause permanent dysfunction of the vascular access, which may be dangerous. Do not measure your blood pressure on the arm that has the access. Keep the access area clean and do not use makeup, creams, lotions, or ointments on it. Check your access area every day for signs of infection. Check for: ? More redness, swelling, or pain. ? More fluid or blood. ? Warmth. ? Pus or a bad smell. Contact a health care provider if: Swelling around the vascular access gets worse. You develop new pain. Get help right away if: You have bleeding at the vascular access that cannot be easily controlled. You have pain, numbness, an unusual pale skin color, or blue fingers or sores at the tips of your fingers in the hand on the side of your fistula. You have chills. You have a fever. You have pus or other fluid (drainage) at the vascular access site. You develop skin redness or red streaking on the skin around, above, or below the vascular access. Your access is hot, swollen, red, and very painful. You can suddenly see the cuff of your catheter used in the access. Summary A vascular access is an entrance to your blood vessels that can be used for dialysis. Several things can cause your vascular access to malfunction. Treatment varies depending on the cause of the malfunction. Keep all follow-up visits as told by your health care provider. Any delay in follow-up could cause permanent dysfunction of the vascular access, which may be dangerous. This information is not intended to replace advice given to you by your health care provider. Make sure you discuss any questions you have with your health care provider. Document Released: 02/16/2007 Document Revised: 06/11/2018 Document Reviewed: 04/10/2017 Elsevier Patient Education 2020 [employer] Additional Information VACCINATE! IT SAVES LIVES! Members of the community who have not yet received the COVID-19 vaccine and would like to receive it can visit one of [facility] vaccine clinics. There are many vaccine clinic locations within the [facility]. For locations and available times, please visit https://GreenCloudot.coronavirus.[place].gov/. It is important to note that some COVID mobile vaccine clinics are held outdoors and may be canceled in rainy or stormy conditions. To learn more about pediatric vaccinations (ages 5-11), we invite you to visit the [facility] webpage. https://www.[facility].org/pages/8490-Wyvdq-Vovgijlario-Tsjufhajkf-Slmsc-Wbc stions.htmlTo learn more about the COVID-19 vaccine, we invite you to visit the CDC website for a list of frequently asked questions.https://www.cdc.gov/coronavirus/2019-ncov/vaccines/faq.html [facility] Patient Portal Access Instructions: Stay connected with your healthcare team and access your personal medical information anytime with the [facility] Patient Portal. Please follow the directions below to create your [facility] account: 1.Access the email account you provided upon registration to the hospital/physician office.2.Look for an invitation email from [facility].3.Open the email and access the invitation link: AcceptInvitation to [facility].4.Fill in the required gilmore to create your account. To access your account, visit [employer]. Click the blue button labeled Access Patient Portal and then log in with the username and password that you created in the steps above. You will be able to view your test results, lab results, a summary of your visits, upcoming appointments and more. There is also a convenient messaging option where you can send secure messages to your p rovider. In addition, you will have the ability to download any documents or summaries to your computer and/or send the information securely to a physician. Remember that your healthcare information is confidential, so carefully consider who you will allowto register on the [employer] Patient Portal for access to your information. You can also access the [facility] Patient Portal on the [employer] toby. Simply click on Patient Portal and then log into your account. If you would like to receive a full copy of your medical records, please contact the [facility] Medical Records Department by calling [phone], Thursday through Thursday between 8 a.m. and 4:30 p.m. HOW TO SAFELY DISPOSE OF PRESCRIPTION MEDICATIONS Please use one of the following methods to safely dispose of your unused medications. 1.Use a drug disposal kit: the drug disposal pouch allows you to safely discard your old and unuseddrugs. Ask your nurse to give you one when you are discharged.2.Visit a local take-back location: Many local pharmacies and police departments have programs that collect old and unwanted prescriptiondrugs. Call your local pharmacy or go to http://britebill.[employer]/5D9Qc5k to find one close to you.3.Make use of household items: Use cat litter or old coffee grounds to dispose medications if other options arenot available. Mix your drugs with these household products, seal them in an airtight container andthrow it into the garbage. Call [facility]: [phone] to be sure your drugs can be disposed of in this way. Some medicines may require a different approach.4.Never flush your medications down the toilet. IF YOU HAVE BEEN PRESCRIBED AN OPIOID FOR PAIN If you have been prescribed an opioid (such as hydrocodone, oxycodone or morphine), it is critical to understand the possible side effects and risks of opioid pain medications. Even when taken as directed, opioids can have several side effects including: Tolerance, meaning you might need to take more of a medication for the same pain relief. Nausea, vomiting and/or constipation. Sleepiness, dizziness, dry mouth, confusion, depression or itching. Physical dependence, meaning you have withdrawal symptoms when a medication is stopped, can develop within a few days. KNOW YOUR RESPONSIBILITIES It is important to know exactly how much and how often to take the opioid pain medications you are prescribed. Never take opioids in higher amounts or more often than prescribed. Do not combine opioids with alcohol or other drugs that cause drowsiness, such as benzodiazepines, also known as benzos, including diazepam and alprazolam, muscle relaxants or sleep aids. Never sell or share prescription opioids. This is illegal. Store opioids in a secure place and out of reach of others (including children, family, friends and visitors). The last page of this document has been signed and retained as a CHART COPY. Signatures Patient Education Materials Dialysis Vascular Access Malfunction Medication Leaflets My discharge plan and instructions have been reviewed and explained to me and IARASH SHARON S understand my current condition and have read and understand these discharge instructions. I have received a written copy of the plan/instructions. If I have questions, I am aware that I should contactmy doctor. Patient/Identity Management Developer Signature: Date/Time: Relationship to Patient: Witness Name/Signature: Date/Time[id number] Interventional radiology Progress note Patient presented to the ED last night and told staff that she was informed by IR to come to the EDfor admission to the hospital for thrombectomy of her thrombosed fistula - however this is incorrect. IR did NOT instruct the patient to do this and would not send a patient to the ER with those instructions. While the patient was in the ED, there was no contact made with the IR attending media relations specialist -Dr. Sawant - regarding this issue. Patient has an established RIGHT tunneled hemodialysis catheter in the RIGHT IJ vein that was just placed on 10/20/2022 and has been used successfully without issues. Last completed dialysis treatment was yesterday. I spoke with Dr. Gutierrez directly regarding the issues detailed above. A thrombectomy will not be performed by IR today. 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 Please resume your pre hospitalization diet on discharge., 10/24/22 14:56:00 EDT Hospital Course 56-year-old female with past medical history significant for anemia, anxiety, CAD, HF PEF, ESRD on HD, type 2 diabetes mellitus, HLD, HTN. Patient presented to [facility] emergency department on 10/24/2022 for evaluation of AV fistula thrombosis. Patient was just discharged from [facility] on 10/21/2022 for the same. She had a tunneledHD catheter placed and received 2 dialysis treatments. Nephrology recommended outpatient follow-up for AV fistula thrombectomy. Patient was advised that this was unable to be done on an outpatient basis and she needed to return to the emergency department. In the emergency department patient was afebrile and hemodynamically stable with adequate oxygen saturations on room air. Creatinine was 4.71 with a GFR of 10. Hemoglobin was 9.9. On last admission she did receive her Procrit. She was subsequently admitted with consultations placed to interventional radiology and nephrology. My collaborating physician spoke with consultants and no one has any knowledge of patient being told to go to the hospital for AV fistula thrombectomy. She will be discharged home and has been advised to follow-up ou tpatient for thrombectomy. She does have a tunneled catheter in place and will be due for hemodialysis tomorrow. Allergies NKA Consults Consult to Physician - Ordered -- 10/24/22 8:45:00 EDT, PEE SAWANT MD, Routine, Pt was reportedly referred to the hospital by IRbecause she has AV fistula thrombosis and needed inpt procedure. Consult to Physician - Ordered -- 10/24/22 13:14:00 EDT, ROSARIO CORREA MD, Routine, ESRD. Objective Vitals and Measurements T: 36.6 C (Oral) TMIN: 36.0 C (Oral) TMAX: 36.6 C (Oral) HR: 64 RR: 18 BP: 129/63 SpO2: 97% HT: 157.5 cm WT: 101.5 kg BMI: 40.92 Weight Dosing Weight: 101.5 kg (10/24/22) Dosing Weight: 103 kg (10/23/22) GEN: Appears chronically ill CHEST: Normal S1 and S2. Rhythm is regular. Clear to auscultation, without rales, rhonchi, wheezing. ABD: Positive bowel sounds x 4 quads. Soft, nondistended, nontender. EXT: No significant deformity or joint abnormality. No edema. Peripheral pulses intact. NEURO: Sensation grossly intact SKIN: Skin color normal PSYCH: The mental examination revealed the patient was alert and oriented x 4. Very anxious and tearful. Code Status Code Status - Ordered -- 10/24/22 1:22:00 EDT, Full Code, Constant Order Admission Date 10/24/2022 Discharge Date 10/24/2022 Medications Unchanged allopurinol (allopurinol 100 mg oral tablet)1 tab(s) by mouth once a day for 90 Days. Refills: 3. amLODIPine (amLODIPine 10 mg oral tablet)1 tab(s) by mouth once a day. Refills: 11. aspirin (aspirin 81 mg oral delayed release tablet)1 tab(s) by mouth once a day. atorvastatin (atorvastatin 80 mg oral tablet)1 tab(s) by mouth once a day. Refills: 3. carvedilol (Coreg 12.5 mg oral tablet)1 tab(s) by mouth two (2) times a day. Refills: 3. cholecalciferol (Vitamin D3 50 mcg (2000 intl units) oral capsule)1 tab(s) by mouth every day. Refills: 11. ezetimibe (Zetia 10 mg oral tablet)1 tab(s) by mouth once a day. Refills: 3. gabapentin (gabapentin 100 mg oral capsule)1 cap by mouth two (2) times a day for 30 Days. Refills:5. hydrALAZINE (hydrALAZINE 100 mg oral tablet)1 tab(s) by mouth three (3) times a day for 30 Days. Refills: 11. insulin glargine (Toujeo Max SoloStar 300 units/mL subcutaneous solution)20 unit(s) Subcutaneous once a day for 30 Days. sent in absence of PCP. Refills: 0. insulin lispro (HumaLOG) (HumaLOG KwikPen 100 units/mL injectable PEN)5 unit(s) Subcutaneous two (2) times daily before meals. Refills: 3. melatonin (melatonin 5 mg oral tablet)1 tab(s) by mouth daily at bedtime as needed as needed for insomnia. multivitamin (Nephro-Todd oral tablet)1 tab(s) by mouth once a day. Discharge Diet Discharge Diet - Ordered -- No changes were made to your diet during your hospital stay. Please resume your pre hospitalization diet on discharge., 10/24/22 14:56:00 EDT Discharge Activity Discharge Activity - Ordered -- NO activity restrictions, 10/24/22 14:56:00 EDT Condition on Discharge Stable Readmission Risk/Palliative Score LACE Score: 4 (10/24/22 11:16:00) LACE Score: 9 (10/24/22 11:09:00) Palliative Total Score: 1 (10/24/22 11:16:00) Palliative Total Score: 3 (10/24/22 11:09:00) Discharge Disposition Home Information Provided To Patient Digitally Signed by CATHERINE RENTERIA on 10/24/2022 02:59 PM [id number] Discharge summary Date of Service 10/24/2022 Discharge Diagnosis (HFpEF) heart failure with preserved ejection fraction (I50.30 - ICD-10-CM) 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 Please resume your pre hospitalization diet on discharge., 10/24/22 14:56:00 EDT Hospital Course 56-year-old female with past medical history significant for anemia, anxiety, CAD, HF PEF, ESRD on HD, type 2 diabetes mellitus, HLD, HTN. Patient presented to [facility] emergency department on 10/24/2022 for evaluation of AV fistula thrombosis. Patient was just discharged from [facility] on 10/21/2022 for the same. She had a tunneledHD catheter placed and received 2 dialysis treatments. Nephrology recommended outpatient follow-up for AV fistula thrombectomy. Patient was advised that this was unable to be done on an outpatient basis and she needed to return to the emergency department. In the emergency department patient was afebrile and hemodynamically stable with adequate oxygen saturations on room air. Creatinine was 4.71 with a GFR of 10. Hemoglobin was 9.9. On last admission she did receive her Procrit. She was subsequently admitted with consultations placed to interventional radiology and nephrology. My collaborating physician spoke with consultants and no one has any knowledge of patient being told to go to the hospital for AV fistula thrombectomy. She will be discharged home and has been advised to follow-up ou tpatient for thrombectomy. She does have a tunneled catheter in place and will be due for hemodialysis tomorrow. Allergies NKA Consults Consult to Physician - Ordered -- 10/24/22 8:45:00 EDT, PEE SAWANT MD, Routine, Pt was reportedly referred to the hospital by IRbecause she has AV fistula thrombosis and needed inpt procedure. Consult to Physician - Ordered -- 10/24/22 13:14:00 EDT, ROSARIO CORREA MD, Routine, ESRD. Objective Vitals and Measurements T: 36.6 C (Oral) TMIN: 36.0 C (Oral) TMAX: 36.6 C (Oral) HR: 64 RR: 18 BP: 129/63 SpO2: 97% HT: 157.5 cm WT: 101.5 kg BMI: 40.92 Weight Dosing Weight: 101.5 kg (10/24/22) Dosing Weight: 103 kg (10/23/22) GEN: Appears chronically ill CHEST: Normal S1 and S2. Rhythm is regular. Clear to auscultation, without rales, rhonchi, wheezing. ABD: Positive bowel sounds x 4 quads. Soft, nondistended, nontender. EXT: No significant deformity or joint abnormality. No edema. Peripheral pulses intact. NEURO: Sensation grossly intact SKIN: Skin color normal PSYCH: The mental examination revealed the patient was alert and oriented x 4. Very anxious and tearful. Code Status Code Status - Ordered -- 10/24/22 1:22:00 EDT, Full Code, Constant Order Admission Date 10/24/2022 Discharge Date 10/24/2022 Medications Unchanged allopurinol (allopurinol 100 mg oral tablet)1 tab(s) by mouth once a day for 90 Days. Refills: 3. amLODIPine (amLODIPine 10 mg oral tablet)1 tab(s) by mouth once a day. Refills: 11. aspirin (aspirin 81 mg oral delayed release tablet)1 tab(s) by mouth once a day. atorvastatin (atorvastatin 80 mg oral tablet)1 tab(s) by mouth once a day. Refills: 3. carvedilol (Coreg 12.5 mg oral tablet)1 tab(s) by mouth two (2) times a day. Refills: 3. cholecalciferol (Vitamin D3 50 mcg (2000 intl units) oral capsule)1 tab(s) by mouth every day. Refills: 11. ezetimibe (Zetia 10 mg oral tablet)1 tab(s) by mouth once a day. Refills: 3. gabapentin (gabapentin 100 mg oral capsule)1 cap by mouth two (2) times a day for 30 Days. Refills:5. hydrALAZINE (hydrALAZINE 100 mg oral tablet)1 tab(s) by mouth three (3) times a day for 30 Days. Refills: 11. insulin glargine (Toujeo Max SoloStar 300 units/mL subcutaneous solution)20 unit(s) Subcutaneous once a day for 30 Days. sent in absence of PCP. Refills: 0. insulin lispro (HumaLOG) (HumaLOG KwikPen 100 units/mL injectable PEN)5 unit(s) Subcutaneous two (2) times daily before meals. Refills: 3. melatonin (melatonin 5 mg oral tablet)1 tab(s) by mouth daily at bedtime as needed as needed for insomnia. multivitamin (Nephro-Todd oral tablet)1 tab(s) by mouth once a day. Discharge Diet Discharge Diet - Ordered -- No changes were made to your diet during your hospital stay. Please resume your pre hospitalization diet on discharge., 10/24/22 14:56:00 EDT Discharge Activity Discharge Activity - Ordered -- NO activity restrictions, 10/24/22 14:56:00 EDT Condition on Discharge Stable Readmission Risk/Palliative Score LACE Score: 4 (10/24/22 11:16:00) LACE Score: 9 (10/24/22 11:09:00) Palliative Total Score: 1 (10/24/22 11:16:00) Palliative Total Score: 3 (10/24/22 11:09:00) Discharge Disposition Home Information Provided To Patient Digitally Signed by CATHERINE RENTERIA on 10/24/2022 02:59 PM [id number] Evaluation + Plan noteExtracted from: Title:History and Physical Author:BAKARI COVINGTON MD Date:10/24/22 Dialysis access problem. Pat ient with AV fistula thrombosis. Plan was for outpatient thrombectomy. However, patient was informed that she needed to come to the hospital for inpatient procedure as thrombectomy could not be performed outpatient. Consult IR ESRD on HD. No significant electrolyte abnormalities on labs. Consult nephrology CAD. No CP. Continue home medications. DM 2. Chronic. Glucose 126. Continue home medications. CHF. The patient is not clinically volume overloaded. Lungs are clear to auscultation and she has no lower extremity edema. Continue home medications. Medications were not verified by pharmacy at the time of this dictation. Reconciliation to be completed once medications are verified; will address additional chronic medical problems at that time. DVT prophylaxis: SCDs Note dictated using voice recognition software and may contain typographical errors. Future Appointments Appointment Date:10/28/2022 03:00:00 PM Scheduled Provider:DENISSE SUTTON Location:[facility] Appointment Type:[facility] Hospital Follow-Up Appointment Date:01/09/2023 03:30:00 PM Scheduled Provider: Location:[facility] [place] Appointment Type:[facility] Diabetic Individual Visit (AOH) Future Scheduled Tests Laboratory* Lipid Profile 05/28/22 * Vitamin D Level 05/28/22 * Complete Metabolic Panel 05/28/22 [facility] 07-28-2023 Note Date of Service 10/24/2022 Chief Complaint AV fistula thrombosis Subjective 56-year-old female with past medical history significant for anemia, anxiety, CAD, HF PEF, ESRD on HD, type 2 diabetes mellitus, HLD, HTN. Patient presented to [facility] emergency department on 10/24/2022 for evaluation of AV fistula thrombosis. Patient was just discharged from [facility] on 10/21/2022 for the same. She had a tunneledHD catheter placed and received 2 dialysis treatments. Nephrology recommended outpatient follow-up for AV fistula thrombectomy. Patient was advised that this was unable to be done on an outpatient basis and she needed to return to the emergency department. In the emergency department patient was afebrile and hemodynamically stable with adequate oxygen saturations on room air. Creatinine was 4.71 with a GFR of 10. Hemoglobin was 9.9. On last admission she did receive her Procrit. She was subsequently admitted with consultations placed to interventional radiology and nephrology. Objective Vitals and Measurements T: 36.0 C (Oral) TMIN: 36.0 C (Oral) TMAX: 36.5 C (Temporal Artery) HR: 63 RR: 16 BP: 134/55 SpO2: 98% HT: 157.5 cm WT: 101.5 kg BMI: 40.92 Intake and Output 7AM Yesterday to 7AM Today Intake and Output (Last 24 hours) Intake Oral Intake 480.00 Output Urine Count 2.00 Diaper Count 1.00 Total Summary Total Intake 480.00 Total Output 0.00 Fluid Balance 480.00 Physical Exam GEN: Appears chronically ill CHEST: Normal S1 and S2. Rhythm is regular. Clear to auscultation, without rales, rhonchi, wheezing. ABD: Positive bowel sounds x 4 quads. Soft, nondistended, nontender. EXT: No significant deformity or joint abnormality. No edema. Peripheral pulses intact. NEURO: Sensation grossly intact SKIN: Skin color normal PSYCH: The mental examination revealed the patient was alert and oriented x 4. Very anxious and tearful. Weight Dosing Weight: 101.5 kg (10/24/22) Dosing Weight: 103 kg (10/23/22) Medications Medications (16) Active Scheduled: (11) allopurinol 100 mg tablet 50 mg 0.5 tab(s), Oral, 2X/week amLODIPine 10 mg tablet 10 mg 1 tab(s), Oral, qDay atorvastatin 80 mg tablet 80 mg 1 tab(s), Oral, qDay carvedilol 12.5 mg tablet 12.5 mg 1 tab(s), Oral, BID cholecalciferol 50 mcg tablet (Vit D3 2000 unit(s)) 50 mcg 1 tab(s), Oral, Daily ezetimibe 10 mg tablet 10 mg 1 tab(s), Oral, qDay gabapentin 100 mg Capsule 100 mg 1 cap(s), Oral, BID hydralazine 50 mg Tablet 100 mg 2 tab(s), Oral, TID insulin glargine 20 unit(s) 0.2 mL, Subcutaneous, qDay insulin lispro 100 units/mL Soln (3 mL) 5 unit(s) 0.05 mL, Subcutaneous, BIDAC Vitamin B Complex with C tablet 1 tab(s), Oral, qDay Continuous: (0) PRN: (5) acetaminophen 325 mg Tablet 650 mg 2 tab(s), Oral, q6hWA melatonin 3 mg tablet 3 mg 1 tab(s), Oral, qHS melatonin 3 mg tablet 3 mg 1 tab(s), Oral, qHS ondansetron 2 mg/ 1 mL 2 mL INJ 4 mg 2 mL, IV Push, q4h ondansetron 4 mg DIS tablet 4 mg 1 tab(s), Oral, q6h Lab Results 10/24 06:32 WBC: 6.9 Hgb: 9.9 L Hct: 29.7 L Platelet: 121 L Glucose Level: 151 H Sodium Level: 140 Potassium Level: 4.8 BUN: 38.0 H Creatinine Lvl (s): 4.71 H 10/23 16:21 WBC: 5.7 Hgb: 11.4 L Hct: 34.0 Platelet: 134 L Neutrophil %: 72.9 Glucose Level: 126 H Sodium Level: 143 Potassium Level: 4.4 BUN: 24.0 H Creatinine Lvl (s): 3.92 H Assessment/Plan 1. AV fistula thrombosis 2. ESRD on hemodialysis 3. (HFpEF) heart failure with preserved ejection fraction 4. Type 2 diabetes mellitus AV fistula thrombosis consult interventional radiology for thrombectomy ESRD on HD nephrology has been consulted. Patient is not due for dialysis until tomorrow. HFpEF not in acute exacerbation Type 2 diabetes mellitus- Glucose goal 180 or less and avoid hypoglycemia. Continue corrective sliding scale insulin. ADA diet. DVT prophylaxis: SCDs Labs, diagnostics, and progress notes reviewed as noted in HPI Code Status: Full code Plan of care discussed with patient. All questions answered. Patient verbalizes understanding is agreeable to plan of care. This dictation was performed using voice recognition software and may include grammatical and/or spelling errors. Digitally Signed by CATHERINE RENTERIA on 10/24/2022 01:30 PM [id number] Palliative care Progress note Palliative care consulted as part of a positive palliative care screen. Patient does have end-stagerenal disease and readmission for the same diagnosis within 30 days. However, there was a problem with her receiving outpatient thrombectomy so she did require readmission as a result. She is currently receiving goal congruent care. Palliative care screen will be canceled as a result. She has no unmet palliative needs at this time. Digitally Signed by RADHA BARAJAS MD on 10/24/2022 01:03 PM [id number] History and physical note Date of Service 10/24/22 Chief Complaint Patient's fistula on her left arm in clotted, patient states the nehrologist sent her here to see IR. History of Present Illness 56-year-old female with PMHx anemia, anxiety, CAD, CHF, ESRD, DM 2, HLD, HTN presents to ED at request of physician for problem with dialysis access. History is predominantly taken by the sister. Patient is pulling blankets over her head and not participating. Patient's sister states that she was called by either vascular surgery or interventional radiology and were told that there is a problem with dialysis access. 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 However, stated that she needed to come to the hospital for procedure on her fistula by interventional radiology. The patient has been nauseous and short of breath. No reported missed dialysis episodes. Has reported a increase in fluid intake above recommended value. The patient declines to participate in interview. Patient was admitted with DC on 10/21/2022. At that admission she was treated for fluid overload and temporary dialysis catheter was placed. Plan for thrombectomy in the outpatient. In the emergency department the patient is afebrile and hemodynamically stable. Labs show stable anemia and thrombocytopenia. CMP with glucose 126, LFTs elevated 59 and 57 AST ALT respectively. No imaging obtained. No medications given. Patient's sister states that the patient is very reluctant to be admitted to the hospital. If she attempts to leave AMA, sister should be contacted. Review of Systems Pertinent review of systems are included in the HPI. Physical Exam Vitals and Measurements T: 36.5 C (Temporal Artery) HR: 60(Monitored) RR: 18 BP: 143/58 SpO2: 98% WT: 103 kg Weight Dosing Weight: 103 kg (10/23/22) GA: Alert and oriented x3, no acute distress. She reports I hear everything you are saying. Denies any acute symptoms. Declines to participate in interview. Abd: Not distended HEENT: NCAT, sclera anicteric, oral mucosa moist Pulmonary: No tachypnea or use of accessory respiratory muscles. MSK: No gross deformities Cardiovascular: Not tachycardic Skin: Warm and dry Neuro: Spontaneous movement of all extremities, cranial nerves II through XII grossly normal Psychiatric: Thought content, associations, attention are all normal. Lab Results 10/24 15:21 pH: 7.407 (10/19/22 10:42:00) pCO2: 35.2 mm Hg (10/19/22 10:42:00) pO2: 80.9 mm Hg (10/19/22 10:42:00) HCO3: 21.7 mmol/L (10/19/22 10:42:00) CO2 Totl: 22.7 mmol/L (10/19/22 10:42:00) Base Excess: -2.5 mmol/L (10/19/22 10:42:00) O2 Sat: 95.3 % (10/19/22 10:42:00) Barometric Pressure: 707 mm Hg (10/19/22 10:42:00) WBC: 5.7 10^3/mcL (10/23/22 16:21:00) RBC: 3.6 10^6/mcL Low (10/23/22 16:21:00) Hgb: 11.4 G/dL Low (10/23/22 16:21:00) Hct: 34 % (10/23/22 16:21:00) MCV: 94.6 fL (10/23/22 16:21:00) MCH: 31.8 pg (10/23/22 16:21:00) MCHC: 33.6 G/dL (10/23/22 16:21:00) RDW: 15.5 % (10/23/22 16:21:00) Platelet: 134 10^3/mcL Low (10/23/22 16:21:00) MPV: 10.6 fL High (10/23/22 16:21:00) Monocyte Distribution Width: 16.15 (10/23/22 16:21:00) Neutrophil %: 72.9 % (10/23/22 16:21:00) Lymphocyte %: 9.5 % Low (10/23/22 16:21:00) Monocyte %: 13.9 % High (10/23/22 16:21:00) Eosinophil %: 3.1 % (10/23/22 16:21:00) Basophil %: 0.6 % (10/23/22 16:21:00) Neutrophil, Absolute: 4.1 10^3/mcL (10/23/22 16:21:00) Lymphocyte, Absolute: 0.5 10^3/mcL Low (10/23/22 16:21:00) Monocyte, Absolute: 0.8 10^3/mcL (10/23/22 16:21:00) Eosinophil, Absolute: 0.2 10^3/mcL (10/23/22 16:21:00) Basophil, Absolute: 0 10^3/mcL (10/23/22 16:21:00) Protime: 11.7 seconds (10/20/22 06:15:00) PT International Ratio: 1 ratio (10/20/22 06:15:00) Glucose Level: 126 mg/dL High (10/23/22 16:21:00) Sodium Level: 143 mEq/L (10/23/22 16:21:00) Potassium Level: 4.4 mEq/L (10/23/22 16:21:00) Chloride: 106 mEq/L (10/23/22 16:21:00) CO2: 27 mEq/L (10/23/22 16:21:00) Electrolyte Balance: 10 mEq/L (10/23/22 16:21:00) BUN: 24 mg/dL High (10/23/22 16:21:00) Creatinine Lvl (s): 3.92 mg/dL High (10/23/22 16:21:00) BUN/Creatinine Ratio: 6.1 ratio Low (10/23/22 16:21:00) Calcium Lvl: 8.9 mg/dL (10/23/22 16:21:00) Magnesium Lvl: 2.1 mg/dL (10/19/22 14:50:00) Phosphorus: 6.4 mg/dL High (10/19/22 14:50:00) Total Protein: 7 G/dL (10/23/22 16:21:00) Albumin Level: 4.1 G/dL (10/23/22 16:21:00) Globulin: 2.9 G/dL (10/23/22 16:21:00) A/G Ratio: 1.4 ratio (10/23/22 16:21:00) Bili Total: 0.3 mg/dL (10/23/22 16:21:00) Alk Phos: 77 U/L (10/23/22 16:21:00) AST/SGOT: 59 U/L High (10/23/22 16:21:00) ALT/SGPT: 57 U/L High (10/23/22 16:21:00) CPK: 102 U/L (10/19/22 14:50:00) GFR Non-: 12 ml/min/1.73sqm (10/23/22 16:21:00) GFR : 14 ml/min/1.73sqm (10/23/22 16:21:00) N-Terminal proBNP: 2382 pg/mL High (10/19/22 10:56:00) Troponin I High Sensitivity: 7.98 ng/L (10/19/22 20:17:00) TSH: 1.486 mIU/mL (10/19/22 10:56:00) Lab Performed By: Marie Quiroz PharmD (10/10/22 16:23:00) Lab Performing Location: [facility] (10/10/22 16:23:00) Hgb A1c (AMB POC): 5.7 % (10/10/22 16:23:00) Blood Glucose, Capillary: 101 mg/dL (10/23/22 20:37:00) Blood Glucose Testing Reason: Routine (10/21/22 11:52:00) Assessment/Plan Dialysis access problem. Patient with AV fistula thrombosis. Plan was for outpatient thrombectomy. However, patient was informed that she needed to come to the hospital for inpatient procedure as thrombectomy could not be performed outpatient. Consult IR ESRD on HD. No significant electrolyte abnormalities on labs. Consult nephrology CAD. No CP. Continue home medications. DM 2. Chronic. Glucose 126. Continue home medications. CHF. The patient is not clinically volume overloaded. Lungs are clear to auscultation and she has no lower extremity edema. Continue home medications. Medications were not verified by pharmacy at the time of this dictation. Reconciliation to be completed once medications are verified; will address additional chronic medical problems at that time. DVT prophylaxis: SCDs Note dictated using voice recognition software and may contain typographical errors. Problem List/Past Medical History Ongoing Anemia Anxiety and depression Back pain CAD (coronary artery disease) Chronic constipation Chronic headaches Congestive heart failure Depression Diabetic retinopathy 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 to type 2 diabetes mellitus Fall Forehead abrasion Hammertoe of right foot History of stroke Hyperlipidemia Hypertension Iron deficiency anemia Low back pain Mass of left lower leg Mental status alteration Mental status change resolved On anticoagulant therapy Pneumonia Slurred speech Type 2 diabetes mellitus Vitamin D deficiency Historical Acute hypoxemic respiratory failure due to COVID-19 Anxiety CKD stage 3 secondary to diabetes COVID-19 Depression Diabetes type 2, uncontrolled Hypokalemia Left shoulder pain Pneumonia due to COVID-19 virus Postmenopausal vaginal bleeding Psychosis Respiratory insufficiency Screening for breast cancer Stage 4 chronic kidney disease URI (upper respiratory infection) Procedure/Surgical History Echocardiogram: 01/22/22 Cardiovascular stress testin01/10/22 Fistula: 2021 Cardiac catheterization: 05/27/21 Cardiovascular stress testin04/19/21 Echocardiogram: 01/21/21 Doppler ultrasound of bilateral carotid arteries: 08/21/20 Appendectomy Stent Medications Home Medications (13) Active allopurinol 100 mg oral tablet 100 mg = 1 tab(s), Oral, qDay amLODIPine 10 mg oral tablet 10 mg = 1 tab(s), Oral, qDay aspirin 81 mg oral delayed release tablet 81 mg = 1 tab(s), Oral, qDay atorvastatin 80 mg oral tablet 80 mg = 1 tab(s), Oral, qDay Coreg 12.5 mg oral tablet 12.5 mg = 1 tab(s), Oral, BID gabapentin 100 mg oral capsule 100 mg = 1 cap(s), Oral, BID HumaLOG KwikPen 100 units/mL injectable PEN 5 unit(s), Subcutaneous, BIDAC hydrALAZINE 100 mg oral tablet 100 mg = 1 tab(s), Oral, TID melatonin 5 mg oral tablet 5 mg = 1 tab(s), PRN, Oral, qHS Nephro-Todd oral tablet 1 tab(s), Oral, qDay Toujeo Max SoloStar 300 units/mL subcutaneous solution 20 unit(s), Subcutaneous, qDay Vitamin D3 50 mcg (2000 intl units) oral capsule 50 mcg = 1 tab(s), Oral, Daily Zetia 10 mg oral tablet 10 mg = 1 tab(s), Oral, qDay Allergies NKA Social History Alcohol Use: Never., 08/09/2018 Home/Environment Domestic Concerns: None. Living situation: Home with assistance., 02/25/2022 Nutrition/Health Caffeine intake amount: none., 10/29/2021 Substance Abuse Use: Never., 08/09/2018 Tobacco Nicotine Use: Former smoker, quit more than 30 days ago., 10/29/2021 Family History Alcohol abuse: Grandparent. Diabetes: Mother, Sister and Brother. Heart disease: Mother, Father, Sister and Brother. Hypertension: Mother, Father, Sister and Brother. Immunizations pneumococcal 23-valent vaccine(Pneumovax: 0.5 unknown unit (04/22/17) SARS-CoV-2 mRNA (tozinameran) vaccine: 30 mcg (04/11/21) SARS-CoV-2 mRNA (tozinameran) vaccine: 30 mcg (03/21/21) tetanus/diphth/pertuss (Tdap) adult/adol: 0.5 unknown unit (03/04/17) Code Status Code Status - Ordered -- 10/24/22 1:22:00 EDT, Full Code, Constant Order Digitally Signed by TOÑITO COVINGTON MD on 10/24/2022 01:50 [id number] Discharge instructions Patient Education 08/29/2022 01:18:02 Vomiting (Adult) Vomiting (Adult) Vomiting is a common symptom that may be due to different causes. These include gastroenteritis (stomach flu), food poisoning and gastritis. There are other more serious causes of vomiting which may be hard to diagnose early in the illness. Therefore, it is important to watch for the warning signs listed below. The main danger from repeated vomiting is dehydration. This is due to excess loss of water and minerals from the body. When this occurs, your body fluids must be replaced. Home care If symptoms are severe, rest at home for the next 24 hours. Because your symptoms may be from an infection, wash your hands often and well. If soap and water are not available, use alcohol-based sales representative electric service to keep from spreading the infection to others. Wash your hands for at least 20 seconds. Humming the happy birthday song twice while you wash is aneasy way to make sure you've washed for 20 seconds. Wash your hands after using the toilet, before and after preparing food, before eating food, after changing a diaper, cleaning a wound, caring for a sick person, and blowing your nose, coughing, or sneezing. You should also wash your hands after caring for someone who is sick, touching pet food, ortreats, and touching an animal, or animal waste. You may use acetaminophen or NSAID medicines like ibuprofen or naproxen to control fever, unless another medicine was prescribed. If you have chronic liver or kidney disease or ever had a stomach ulcer or gastrointestinal bleeding, talk with your doctor before using these medicines. Aspirin should never be used in anyone under 18 years of age who is ill with a fever. It may cause severe liver damage. Don't use NSAID medicines if you are already taking one for another condition (like arthritis) or are on aspirin (such as for heart disease, or after a stroke) Don't use tobacco and or drink alcohol, which may worsen your symptoms. If medicines for vomiting were prescribed, take as directed. Once vomiting stops, then follow these guidelines: During the first 12 to 24 hours follow the diet below: Fruit juices. Apple, grape juice, clear fruit drinks, and electrolyte replacement drinks. Beverages. Soft drinks without caffeine; mineral water (plain or flavored), decaffeinated tea and coffee. Soups. Clear broth and bouillon Desserts. Plain gelatin, ice pops, and fruit juice bars. As you feel better, you may add 6 to 8 ounces of yogurt per day. During the next 24 hours you may add the following to the above: Hot cereal, plain toast, bread, rolls, crackers Plain noodles, rice, mashed potatoes, chicken noodle or rice soup Unsweetened canned fruit such as applesauce, bananas (avoid pineapple and citrus) Limit caffeine and chocolate. No spices or seasonings except salt. During the next 24 hours: Gradually resume a normal diet, as you feel better and your symptoms lessen. Follow-up care Follow up with your healthcare provider, or as advised. When to seek medical advice Call your healthcare provider right away if any of these occur: Constant right-sided lower belly pain or increasing general belly pain Continued vomiting (unable to keep liquids down) for 24 hours Vomiting blood or coffee grounds Swollen belly Frequent diarrhea (more than 5 times a day); blood (red or black color) or mucus in diarrhea Reduced urine output or extreme thirst Weakness, dizziness or fainting Unusually drowsy or confused Fever of 100.4 F (38 C) oral or higher, or as directed Yellow color of the eyes or skin [id number] [employer]. [address] [place] [address]. All rights reserved. This information is not intended as a substitute for professional medical care. Always follow yourhealthcare professional's instructions. Follow Up Care 08/28/2022 23:29:36 With:DENISSE SUTTON Address: [place] [address]- [phone] When:2-[address] [facility] 06-02-2023 Note Discharge Instructions Thank you for allowing [facility] to assist you with your healthcare needs. The following is importantdischarge information regarding your hospital visit. Diagnosis from Today's Visit Vomiting What to Do Next Instructions from Your Care Team No qualifying data available. Post Acute Orders No qualifying data available. You Need to Schedule the Following Appointments Follow Up with DENISSE SUTTON When Within 2-4 days Where: [place] [address]- [phone] Allergies NKA Medications Please ask your primary doctor or pharmacist before taking any other medication not listed, including over the counter drugs, herbal medications, vitamins and or supplements as they may interact withyour home medications. What How Much When Why Instructions Last Dose New ondansetron (ondansetron 4 mg oral tablet, disintegrating) 1 tab(s) by mouth Every 8 hours Duration: 3 Days Printed Prescription Unchanged allopurinol (allopurinol 100 mg oral tablet) 1 tab(s) by mouth Once a day Duration: 90 Days Unchanged amLODIPine (amLODIPine 10 mg oral tablet) 1 tab(s) by mouth Once a day Unchanged aspirin (aspirin 81 mg oral delayed release tablet) 1 tab(s) by mouth Once a day Unchanged atorvastatin (atorvastatin 80 mg oral tablet) 1 tab(s) by mouth Once a day Unchanged carvedilol (Coreg 6.25 mg oral tablet) 1 tab(s) by mouth Two (2) times a day Duration: 30 Days Unchanged cholecalciferol (Vitamin D3 50 mcg (2000 intl units) oral capsule) 1 tab(s) by mouth Every day Unchanged DME (Blood Glucose Test Machine) See instructions Brand type per insurance or patient preference. Dx: E11.9, pt insulin dependent, test 4times/ day Unchanged DME (Blood Glucose Test Machine) See instructions Use as directed Brand type per insurance or patient preference Unchanged DME (Blood Glucose Test Strips) See instructions 1 bottle of 100 ---Test 4times/ day--Pt has accucheck guide dx E11.9 Pt insulin dependent. Unchanged DME (DME MISCellaneous) See instructions 2 pairs of compression stockings. Dx CHF. Unchanged DME (Lancets) See instructions qs 1 month supply--One touch delica plus Unchanged DME (Lancets) See instructions qs 1 month supply Unchanged DME (Lancets) See instructions qs 1 month supply--test four times daily--has accucheck guide dx E11.9, insulin dependent Unchanged DME (Pen needles 8 mm) See instructions BD UF 8mm 31 G (short) qs 1 month supply. In absence of PCP Unchanged docusate (DOK 100 mg oral capsule) 1 cap by mouth Two (2) times a day as needed for as needed for constipation Unchanged ezetimibe (Zetia 10 mg oral tablet) 1 tab(s) by mouth Once a day Unchanged gabapentin (gabapentin 100 mg oral capsule) 1 cap by mouth Two (2) times a day Leg pain Duration: 30 Days Unchanged hydrALAZINE (hydrALAZINE 100 mg oral tablet) 1 tab(s) by mouth Three (3) times a day Duration: 30 Days Unchanged insulin glargine (Toujeo Max SoloStar 300 units/ mL subcutaneous solution) 20 unit(s) Subcutaneous Once a day Duration: 30 Days Unchanged insulin lispro (HumaLOG) (HumaLOG KwikPen 100 units/ mL injectable PEN) 5 unit(s) Subcutaneous Two (2) times daily before meals Unchanged melatonin (melatonin 5 mg oral tablet) 1 tab(s) by mouth Daily at bedtime as needed for as needed for insomnia Unchanged multivitamin (Nephro-Todd oral tablet) 1 tab(s) by mouth Once a day Unchanged potassium chloride (potassium chloride 10 mEq oral capsule, extended release) 1 cap by mouth Two (2) times a day Unchanged ranolazine (Ranexa 500 mg oral tablet, extended release) 1 tab(s) by mouth Two (2) times a day Unchanged torsemide (torsemide 100 mg oral tablet) 0.5 tab(s) by mouth Two (2) times a day Duration: 90 Days Please take this list to your next doctor s visit. Bring all medications you take, including over the counter medications, herbals and other supplements with you to your doctor s visit. Patients and families are reminded to discard old lists and to update any records with all medication providers or retail pharmacies. Medication Leaflets ondansetron (oral) (on JOSTIN se domonique) Anna Castillo Zuplenz What is the most important information I should know about ondansetron? You should not use ondansetron if you are also using apomorphine (Apokyn). What is ondansetron? Ondansetron blocks the actions of chemicals in the body that can trigger nausea and vomiting. Ondansetron is used to prevent nausea and vomiting that may be caused by surgery, cancer chemotherapy, or radiation treatment. Ondansetron may be used for purposes not listed in this medication guide. What should I discuss with my health care provider before taking ondansetron? You should not use ondansetron if: you are also using apomorphine (Apokyn); or you are allergic to ondansetron or similar medicines (dolasetron, granisetron, palonosetron). To make sure ondansetron is safe for you, tell your doctor if you have: liver disease; an electrolyte imbalance (such as low levels of potassium or magnesium in your blood); congestive heart failure, slow heartbeats; a personal or family history of long QT syndrome; or a blockage in your digestive tract (stomach or intestines). Ondansetron is not expected to harm an unborn baby. Tell your doctor if you are . It is not known whether ondansetron passes into breast milk or if it could harm a nursing baby. Tell your doctor if you are breast-feeding a baby. Ondansetron is not approved for use by anyone younger than 4 years old. Ondansetron orally disintegrating tablets may contain phenylalanine. Tell your doctor if you have phenylketonuria (PKU). How should I take ondansetron? Follow all directions on your prescription label. Do not take this medicine in larger or smaller amounts or for longer than recommended. Ondansetron can be taken with or without food. The first dose of ondansetron is usually taken before the start of your surgery, chemotherapy, or radiation treatment. Follow your doctor's dosing instructions very carefully. Take the ondansetron regular tablet with a full glass of water. To take the orally disintegrating tablet (Zofran ODT): Keep the tablet in its blister pack until you are ready to take it. Open the package and peel back the foil. Do not push a tablet through the foil or you may damage the tablet. Use dry hands to remove the tablet and place it in your mouth. Do not swallow the tablet whole. Allow it to dissolve in your mouth without chewing. Swallow several times as the tablet dissolves. To use ondansetron oral soluble film (strip) (Zuplenz): Keep the strip in the foil pouch until you are ready to use the medicine. Using dry hands, remove the strip and place it on your tongue. It will begin to dissolve right away. Do not swallow the strip whole. Allow it to dissolve in your mouth without chewing. Swallow several times after the strip dissolves. If desired, you may drink liquid to help swallow the dissolved strip. Wash your hands after using Zuplenz. Measure liquid medicine with the dosing syringe provided, or with a special dose-measuring spoon ormedicine cup. If you do not have a dose-measuring device, ask your pharmacist for one. Store at room temperature away from moisture, heat, and light. Store liquid medicine in an upright position. What happens if I miss a dose? Take the missed dose as soon as you remember. Skip the missed dose if it is almost time for your next scheduled dose. Do not take extra medicine to make up the missed dose. What happens if I overdose? Seek emergency medical attention or call the Poison Help line at . Overdose symptoms may include sudden loss of vision, severe constipation, feeling light-headed, or fainting. What should I avoid while taking ondansetron? Ondansetron may impair your thinking or reactions. Be careful if you drive or do anything that requires you to be alert. What are the possible side effects of ondansetron? Get emergency medical help if you have signs of an allergic reaction: rash, hives; fever, chills, difficult breathing; swelling of your face, lips, tongue, or throat. Call your doctor at once if you have: severe constipation, stomach pain, or bloating; headache with chest pain and severe dizziness, fainting, fast or pounding heartbeats; fast or pounding heartbeats; jaundice (yellowing of the skin or eyes); blurred vision or temporary vision loss (lasting from only a few minutes to several hours); high levels of serotonin in the body--agitation, hallucinations, fever, fast heart rate, overactivereflexes, nausea, vomiting, diarrhea, loss of coordination, fainting. Common side effects may include: diarrhea or constipation; headache; drowsiness; or tired feeling. This is not a complete list of side effects and others may occur. Call your doctor for medical advice about side effects. You may report side effects to FDA at 6-021-KJL-7472. What other drugs will affect ondansetron? Ondansetron can cause a serious heart problem, especially if you use certain medicines at the same time, including antibiotics, antidepressants, heart rhythm medicine, antipsychotic medicines, and medicines to treat cancer, malaria, HIV or AIDS. Tell your doctor about all medicines you use, and those you start or stop using during your treatment with ondansetron. Taking ondansetron while you are using certain other medicines can cause high levels of serotonin to build up in your body, a condition called 'serotonin syndrome,' which can be fatal. Tell your doctor if you also use: medicine to treat depression; medicine to treat a psychiatric disorder; a narcotic (opioid) medication; or medicine to prevent nausea and vomiting. This list is not complete and many other drugs can interact with ondansetron. This includes prescription and mjkj-bwq-yqphcoe medicines, vitamins, and herbal products. Give a list of all your medicines to any healthcare provider who treats you. Where can I get more information? Your pharmacist can provide more information about ondansetron. Remember, keep this and all other medicines out of the reach of children, never share your medicines with others, and use this medication only for the indication prescribed. Every effort has been made to ensure that the information provided by [employer] is accurate, up-to-date, and complete, but no guarantee is made to that effect. Drug information contained herein may be time sensitive. [employer] information has been compiled for use by healthcare practitioners and consumers in the [place] and therefore [employer] does not warrant that uses outside of the [place] are appropriate, unless specifically indicated otherwise. [employer] drug information does not endorse drugs, diagnose patients or recommend therapy. [employer] drug information isan informational resource designed to assist licensed healthcare practitioners in caring for their p atients and/or to serve consumers viewing this service as a supplement to, and not a substitute for, the expertise, skill, knowledge and judgment of healthcare practitioners. The absence of a warningfor a given drug or drug combination in no way should be construed to indicate that the drug or drug combination is safe, effective or appropriate for any given patient. [employer] does not assume any responsibility for any aspect of healthcare administered with the aid of information [employer] provides. The information contained herein is not intended to cover all possible uses, directions, precautions, warnings, drug interactions, allergic reactions, or adverse effects. If you have questions about the drugs you are taking, check with your doctor, nurse or pharmacist. Copyright 8843-5166 [employer]. Version: 13.01. Revision Date: 01/18/2016. ondansetron (oral) (on JOSTIN se domonique) Anna Castillo Zuplenz What is the most important information I should know about ondansetron? You should not use ondansetron if you are also using apomorphine (Apokyn). What is ondansetron? Ondansetron blocks the actions of chemicals in the body that can trigger nausea and vomiting. Ondansetron is used to prevent nausea and vomiting that may be caused by surgery, cancer chemotherapy, or radiation treatment. Ondansetron may be used for purposes not listed in this medication guide. What should I discuss with my health care provider before taking ondansetron? You should not use ondansetron if: you are also using apomorphine (Apokyn); or you are allergic to ondansetron or similar medicines (dolasetron, granisetron, palonosetron). To make sure ondansetron is safe for you, tell your doctor if you have: liver disease; an electrolyte imbalance (such as low levels of potassium or magnesium in your blood); congestive heart failure, slow heartbeats; a personal or family history of long QT syndrome; or a blockage in your digestive tract (stomach or intestines). Ondansetron is not expected to harm an unborn baby. Tell your doctor if you are . It is not known whether ondansetron passes into breast milk or if it could harm a nursing baby. Tell your doctor if you are breast-feeding a baby. Ondansetron is not approved for use by anyone younger than 4 years old. Ondansetron orally disintegrating tablets may contain phenylalanine. Tell your doctor if you have phenylketonuria (PKU). How should I take ondansetron? Follow all directions on your prescription label. Do not take this medicine in larger or smaller amounts or for longer than recommended. Ondansetron can be taken with or without food. The first dose of ondansetron is usually taken before the start of your surgery, chemotherapy, or radiation treatment. Follow your doctor's dosing instructions very carefully. Take the ondansetron regular tablet with a full glass of water. To take the orally disintegrating tablet (Zofran ODT): Keep the tablet in its blister pack until you are ready to take it. Open the package and peel back the foil. Do not push a tablet through the foil or you may damage the tablet. Use dry hands to remove the tablet and place it in your mouth. Do not swallow the tablet whole. Allow it to dissolve in your mouth without chewing. Swallow several times as the tablet dissolves. To use ondansetron oral soluble film (strip) (Zuplenz): Keep the strip in the foil pouch until you are ready to use the medicine. Using dry hands, remove the strip and place it on your tongue. It will begin to dissolve right away. Do not swallow the strip whole. Allow it to dissolve in your mouth without chewing. Swallow several times after the strip dissolves. If desired, you may drink liquid to help swallow the dissolved strip. Wash your hands after using Zuplenz. Measure liquid medicine with the dosing syringe provided, or with a special dose-measuring spoon ormedicine cup. If you do not have a dose-measuring device, ask your pharmacist for one. Store at room temperature away from moisture, heat, and light. Store liquid medicine in an upright position. What happens if I miss a dose? Take the missed dose as soon as you remember. Skip the missed dose if it is almost time for your next scheduled dose. Do not take extra medicine to make up the missed dose. What happens if I overdose? Seek emergency medical attention or call the Poison Help line at . Overdose symptoms may include sudden loss of vision, severe constipation, feeling light-headed, or fainting. What should I avoid while taking ondansetron? Ondansetron may impair your thinking or reactions. Be careful if you drive or do anything that requires you to be alert. What are the possible side effects of ondansetron? Get emergency medical help if you have signs of an allergic reaction: rash, hives; fever, chills, difficult breathing; swelling of your face, lips, tongue, or throat. Call your doctor at once if you have: severe constipation, stomach pain, or bloating; headache with chest pain and severe dizziness, fainting, fast or pounding heartbeats; fast or pounding heartbeats; jaundice (yellowing of the skin or eyes); blurred vision or temporary vision loss (lasting from only a few minutes to several hours); high levels of serotonin in the body--agitation, hallucinations, fever, fast heart rate, overactivereflexes, nausea, vomiting, diarrhea, loss of coordination, fainting. Common side effects may include: diarrhea or constipation; headache; drowsiness; or tired feeling. This is not a complete list of side effects and others may occur. Call your doctor for medical advice about side effects. You may report side effects to FDA at 0-478-QLO-3232. What other drugs will affect ondansetron? Ondansetron can cause a serious heart problem, especially if you use certain medicines at the same time, including antibiotics, antidepressants, heart rhythm medicine, antipsychotic medicines, and medicines to treat cancer, malaria, HIV or AIDS. Tell your doctor about all medicines you use, and those you start or stop using during your treatment with ondansetron. Taking ondansetron while you are using certain other medicines can cause high levels of serotonin to build up in your body, a condition called 'serotonin syndrome,' which can be fatal. Tell your doctor if you also use: medicine to treat depression; medicine to treat a psychiatric disorder; a narcotic (opioid) medication; or medicine to prevent nausea and vomiting. This list is not complete and many other drugs can interact with ondansetron. This includes prescription and vhfx-enu-xszbrie medicines, vitamins, and herbal products. Give a list of all your medicines to any healthcare provider who treats you. Where can I get more information? Your pharmacist can provide more information about ondansetron. Remember, keep this and all other medicines out of the reach of children, never share your medicines with others, and use this medication only for the indication prescribed. Every effort has been made to ensure that the information provided by [employer] is accurate, up-to-date, and complete, but no guarantee is made to that effect. Drug information contained herein may be time sensitive. [employer] information has been compiled for use by healthcare practitioners and consumers in the [place] and therefore [employer] does not warrant that uses outside of the [place] are appropriate, unless specifically indicated otherwise. [employer] information does not endorse drugs, diagnose patients or recommend therapy. [employer] drug information isan informational resource designed to assist licensed healthcare practitioners in caring for their p atients and/or to serve consumers viewing this service as a supplement to, and not a substitute for, the expertise, skill, knowledge and judgment of healthcare practitioners. The absence of a warningfor a given drug or drug combination in no way should be construed to indicate that the drug or drug combination is safe, effective or appropriate for any given patient. [facility] does not assume any responsibility for any aspect of healthcare administered with the aid of information [facility] provides. The information contained herein is not intended to cover all possible uses, directions, precautions, warnings, drug interactions, allergic reactions, or adverse effects. If you have questions about the drugs you are taking, check with your doctor, nurse or pharmacist. Copyright 0678-1343 [facility] [employer]. Version: 13.01. Revision Date: 01/18/2016. Education Materials Vomiting (Adult) Vomiting is a common symptom that may be due to different causes. These include gastroenteritis (stomach flu), food poisoning and gastritis. There are other more serious causes of vomiting which may be hard to diagnose early in the illness. Therefore, it is important to watch for the warning signs listed below. The main danger from repeated vomiting is dehydration. This is due to excess loss of water and minerals from the body. When this occurs, your body fluids must be replaced. Home care If symptoms are severe, rest at home for the next 24 hours. Because your symptoms may be from an infection, wash your hands often and well. If soap and water are not available, use alcohol-based sales representative electric service to keep from spreading the infection to others. Wash your hands for at least 20 seconds. Humming the happy birthday song twice while you wash is aneasy way to make sure you've washed for 20 seconds. Wash your hands after using the toilet, before and after preparing food, before eating food, after changing a diaper, cleaning a wound, caring for a sick person, and blowing your nose, coughing, or sneezing. You should also wash your hands after caring for someone who is sick, touching pet food, ortreats, and touching an animal, or animal waste. You may use acetaminophen or NSAID medicines like ibuprofen or naproxen to control fever, unless another medicine was prescribed. If you have chronic liver or kidney disease or ever had a stomach ulcer or gastrointestinal bleeding, talk with your doctor before using these medicines. Aspirin should never be used in anyone under 18 years of age who is ill with a fever. It may cause severe liver damage. Don't use NSAID medicines if you are already taking one for another condition (like arthritis) or are on aspirin (such as for heart disease, or after a stroke) Don't use tobacco and or drink alcohol, which may worsen your symptoms. If medicines for vomiting were prescribed, take as directed. Once vomiting stops, then follow these guidelines: During the first 12 to 24 hours follow the diet below: Fruit juices. Apple, grape juice, clear fruit drinks, and electrolyte replacement drinks. Beverages. Soft drinks without caffeine; mineral water (plain or flavored), decaffeinated tea and coffee. Soups. Clear broth and bouillon Desserts. Plain gelatin, ice pops, and fruit juice bars. As you feel better, you may add 6 to 8 ounces of yogurt per day. During the next 24 hours you may add the following to the above: Hot cereal, plain toast, bread, rolls, crackers Plain noodles, rice, mashed potatoes, chicken noodle or rice soup Unsweetened canned fruit such as applesauce, bananas (avoid pineapple and citrus) Limit caffeine and chocolate. No spices or seasonings except salt. During the next 24 hours: Gradually resume a normal diet, as you feel better and your symptoms lessen. Follow-up care Follow up with your healthcare provider, or as advised. When to seek medical advice Call your healthcare provider right away if any of these occur: Constant right-sided lower belly pain or increasing general belly pain Continued vomiting (unable to keep liquids down) for 24 hours Vomiting blood or coffee grounds Swollen belly Frequent diarrhea (more than 5 times a day); blood (red or black color) or mucus in diarrhea Reduced urine output or extreme thirst Weakness, dizziness or fainting Unusually drowsy or confused Fever of 100.4 F (38 C) oral or higher, or as directed Yellow color of the eyes or skin [phone] [employer]. [address] [place] [address], [place] [address]. All rights reserved. This information is not intended as a substitute for professional medical care. Always follow yourhealthcare professional's instructions. Additional Information VACCINATE! IT SAVES LIVES! Members of the community who have not yet received the COVID-19 vaccine and would like to receive it can visit one of [facility] vaccine clinics. There are many vaccine clinic locations within the [facility]. For locations and available times, please visit www.gettheshot.coronavirus.[place].gov/. It is important to note that some COVID mobile vaccine clinics are held outdoors and may be canceled in rainy or stormy conditions. To learn more about pediatric vaccinations (ages 5-11), we invite you to visit the [facility] webpage. [email or web address].[email or web address].org/pages/[email or web address]-Phbki-[email or web address]-[email or web address] [email or web address] learn more about the COVID-19 vaccine, we invite you to visit the CDC website for a list of frequently asked questions. https://www.cdc.gov/coronavirus/2019-ncov/vaccines/faq.html [facility] Patient Portal Access Instructions: Stay connected with your healthcare team and access your personal medical information anytime with the [facility] Patient Portal. If you would like a full copy of your medical records please contact the [facility] Medical Records Department Thursday through Thursday between 8a.m. and 4:30p.m. Please follow the directions below to access the portal: 1.Access the email account you provided upon registration to the hospital.2.Look for an invitation email from [facility].3.Open the email and access the invitation link: Accept Invitation to [facility]4.Fill in the required gilmore to create your account. Sign into www.[employer] with your username and password that you created in the above steps to stay up to date. You can then view a summary of results, a summary of your visits, and the ability to download your summaries to your computer or send the information securely to a physician. Remember that your healthcare information is confidential, so carefully consider who you will allow to register on the [facility] Patient Portal for access to your information. You can also access the [facility] Patient Portal on the [employer] toby. Simply click on Health Records under [employer] and then click on the [facility] logo. HOW TO SAFELY DISPOSE OF PRESCRIPTION MEDICATIONS Please use one of the following methods to safely dispose of your unused medications. 1.Use a drug disposal kit: the drug disposal pouch allows you to safely discard your old and unuseddrugs. Ask your nurse to give you one when you are discharged.2.Visit a local take-back location: Many local pharmacies and police departments have programs that collect old and unwanted prescriptiondrugs. Call your local pharmacy or go to http://bit.[employer]/8D8Tp1f to find one close to you.3.Make use of household items: Use cat litter or old coffee grounds to dispose medications if other options arenot available. Mix your drugs with these household products, seal them in an airtight container andthrow it into the garbage. Call [facility]: [phone] to be sure your drugs can be disposed of in this way. Some medicines may require a different approach.4.Never flush your medications down the toilet. IF YOU HAVE BEEN PRESCRIBED AN OPIOIDS FOR PAIN If you have been prescribed an opioid (such as hydrocodone, oxycodone or morphine), it is critical to understand the possible side effects and risks of opioid pain medications. Even when taken as directed, opioids can have several side effects including: Tolerance, meaning you might need to take more of a medication for the same pain relief. Nausea, vomiting and/or constipation. Sleepiness, dizziness, dry mouth, confusion, depression or itching. Physical dependence, meaning you have withdrawal symptoms when a medication is stopped ? this can develop within a few days. KNOW YOUR RESPONSIBILITIES It is important to know exactly how much and how often to take the opioid pain medications you are prescribed. Never take opioids in higher amounts or more often than prescribed. Do not combine opioids with alcohol or other drugs that cause drowsiness, such as benzodiazepines, also known as benzos,including diazepam and alprazolam, muscle relaxants or sleep aids. Never sell or share prescriptionopioids. This is illegal. Store opioids in a secure place and out of reach of others (including children, family, friends and visitors). The last page(s) of this document has been signed and retained as a CHART COPY Signatures Patient Education Materials Vomiting (Adult) Medication Leaflets ondansetron (oral), ondansetron (oral) My discharge plan and instructions have been reviewed and explained to me and I,ZAYDA DAVIS understand my current condition and have read and understand these discharge instructions. I have received a written copy of the plan/instructions. If I have questions, I am aware that I should contactmy doctor. Patient/Identity Management Developer Signature: Date/Time: Relationship to Patient: Witness Name/Signature: Date/Time: [facility]06-02-2023 Note ORIGINAL EXAMINATION: CT OF THE ABDOMEN AND PELVIS WITHOUT CONTRAST 08/29/2022 12:56 am TECHNIQUE: CT of the abdomen and pelvis was performed without the administration of intravenous contrast. Multiplanar reformatted images are provided for review. Automated exposure control, iterative reconstruction, and/or weight based adjustment of the mA/kV was utilized to reduce the radiation dose to as low as reasonably achievable. COMPARISON: None. HISTORY: ORDERING SYSTEM PROVIDED HISTORY: Reason for Exam: abdominal pain FINDINGS: Lower Chest: Subsegmental atelectatic changes at the lung bases. Coronary artery calcifications. Prominent heart. Organs: Cholecystectomy. Small calcification in the dome of the right hepatic lobe, could reflect a small calcified granuloma. Borderline mild splenomegaly. Fatty involution of the pancreas. Adrenal glands unremarkable. No hydronephrosis or hydroureter. GI/Bowel: No bowel obstruction, pneumoperitoneum, or ascites. Appendix is not definitively identified. Pelvis: Small area of calcification in the uterus, could reflect degenerative fibroid. Bladder is unremarkable. Peritoneum/Retroperitoneum: Nonaneurysmal abdominal aorta with atherosclerotic plaque. No enlarged lymph nodes. Bones/Soft Tissues: Degenerative changes of the spine. IMPRESSION: No acute intra-abdominal findings. Interpreted by: Nawaf Chou Preliminary Report By: Nawaf Chou Electronically signed By Nawaf Chou Dictated Date: 08/29/2022 12:57:24 AM Prelim Date: 08/29/2022 1:01:48 AM Sign Date: 08/29/2022 1:01:48 AM Ordering Provider: FREDDIE BURRIS [facility]06-02-2023 Note ORIGINAL EXAMINATION: CT OF THE ABDOMEN AND PELVIS WITHOUT CONTRAST 08/29/2022 12:56 am TECHNIQUE: CT of the abdomen and pelvis was performed without the administration of intravenous contrast. Multiplanar reformatted images are provided for review. Automated exposure control, iterative reconstruction, and/or weight based adjustment of the mA/kV was utilized to reduce the radiation dose to as low as reasonably achievable. COMPARISON: None. HISTORY: ORDERING SYSTEM PROVIDED HISTORY: Reason for Exam: abdominal pain FINDINGS: Lower Chest: Subsegmental atelectatic changes at the lung bases. Coronary artery calcifications. Prominent heart. Organs: Cholecystectomy. Small calcification in the dome of the right hepatic lobe, could reflect a small calcified granuloma. Borderline mild splenomegaly. Fatty involution of the pancreas. Adrenal glands unremarkable. No hydronephrosis or hydroureter. GI/Bowel: No bowel obstruction, pneumoperitoneum, or ascites. Appendix is not definitively identified. Pelvis: Small area of calcification in the uterus, could reflect degenerative fibroid. Bladder is unremarkable. Peritoneum/Retroperitoneum: Nonaneurysmal abdominal aorta with atherosclerotic plaque. No enlarged lymph nodes. Bones/Soft Tissues: Degenerative changes of the spine. IMPRESSION: No acute intra-abdominal findings. Interpreted by: Nawaf Chou Preliminary Report By: Nawaf Chou Electronically signed By Nawaf Chou Dictated Date: 08/29/2022 12:57:24 AM Prelim Date: 08/29/2022 1:01:48 AM Sign Date: 08/29/2022 1:01:48 AM Ordering Provider: [facility]05-15-2023 Discharge summary Date of Service 08/11/22 Discharge Diagnosis CAD HTN HLD Hospital Course 56-year-old female who came to the hospital for left heart catheterization for chest pain. Patient with left heart catheterization that showed a moderate disease of RCA while the patent stent in LAD and RCA. Patient is started on Ranexa Case was discussed with the interventional cardiology and decision is made to optimize antianginal therapy. Allergies NKA Consults No qualifying data available. Objective Vitals and Measurements T: 36.6 C (Oral) HR: 58 RR: 20 BP: 146/74 SpO2: 98% HT: 155 cm WT: 102.3 kg Weight Dosing Weight: 102.3 kg (08/11/22) General Appearance: Alert and oriented x3 Head: No visible trauma EENT: Bilateral equal pupil no ptosis Neck: No JVD on examination. Cardiac: S1-S2, regular rate rhythm Lungs: Bilateral equal air entry Abdomen: Nondistended nontender Musculoskeletal: No complaints of muscular pain Extremities: No significant lower extremity edema Code Status No qualifying data available. Admission Date 08/11/22 Discharge Date 08/11/22 Medications New Prescription ranolazine (Ranexa 500 mg oral tablet, extended release)1 tab(s) by mouth two (2) times a day. Refills: 0. Unchanged allopurinol (allopurinol 100 mg oral tablet)1 tab(s) by mouth once a day for 90 Days. Refills: 3. amLODIPine (amLODIPine 10 mg oral tablet)1 tab(s) by mouth once a day. Refills: 11. aspirin (aspirin 81 mg oral delayed release tablet)1 tab(s) by mouth once a day. atorvastatin (atorvastatin 80 mg oral tablet)1 tab(s) by mouth once a day. Refills: 3. carvedilol (Coreg 6.25 mg oral tablet)1 tab(s) by mouth two (2) times a day for 30 Days. Refills: 11. cholecalciferol (Vitamin D3 50 mcg (2000 intl units) oral capsule)1 tab(s) by mouth every day. Refills: 11. DME (Blood Glucose Test Machine)Brand type per insurance or patient preference. Dx: E11.9, pt insulin dependent, test 4times/day. Refills: 0. DME (Blood Glucose Test Machine)Use as directed Brand type per insurance or patient preference. Refills: 0. DME (Blood Glucose Test Strips)1 bottle of 100 ---Test 4times/day--Pt has accucheck guide dx E11.9 Pt insulin dependent.. Refills: 11. DME (DME MISCellaneous)2 pairs of compression stockings. Dx CHF.. Refills: 0. DME (Lancets)qs 1 month supply--One touch delica plus. Refills: 11. DME (Lancets)qs 1 month supply. Refills: 11. DME (Lancets)qs 1 month supply--test four times daily--has accucheck guide dx E11.9, insulin dependent. Refills: 11. DME (Pen needles 8 mm)BD UF 8mm 31 G (short) qs 1 month supply. In absence of PCP. Refills: 0. docusate (DOK 100 mg oral capsule)1 cap by mouth two (2) times a day as needed as needed for constipation. Refills: 3. ezetimibe (Zetia 10 mg oral tablet)1 tab(s) by mouth once a day. Refills: 3. gabapentin (gabapentin 100 mg oral capsule)1 cap by mouth two (2) times a day for 30 Days. Refills:5. hydrALAZINE (hydrALAZINE 100 mg oral tablet)1 tab(s) by mouth three (3) times a day for 30 Days. Refills: 11. insulin glargine (Toujeo Max SoloStar 300 units/mL subcutaneous solution)20 unit(s) Subcutaneous once a day for 30 Days. Refills: 1. insulin lispro (HumaLOG) (HumaLOG KwikPen 100 units/mL injectable PEN)5 unit(s) Subcutaneous two (2) times daily before meals. Refills: 3. melatonin (melatonin 5 mg oral tablet)1 tab(s) by mouth daily at bedtime as needed as needed for insomnia. multivitamin (Nephro-Todd oral tablet)1 tab(s) by mouth once a day. potassium chloride (potassium chloride 10 mEq oral capsule, extended release)1 cap by mouth two (2)times a day. Refills: 3. torsemide (torsemide 100 mg oral tablet)0.5 tab(s) by mouth two (2) times a day for 90 Days. Refills: 3. Follow Up Appointments No qualifying data available. Follow Up Labs/Studies Discharge Labs No Follow-up Labs Discharge Studies No Follow-up Studies Discharge Diet Discharge Diet - Ordered -- No changes were made to your diet during your hospital stay. Please resume your pre hospitalization diet on discharge., 08/11/22 8:58:00 EDT Discharge Activity Discharge Activity - Ordered -- Lifting Restricted less than 5 pounds, 08/11/22 8:58:00 EDT Readmission Risk/Palliative Score No qualifying data available. Digitally Signed by MARCUS TORRES MD on 08/11/2022 09:02 AM [id number] Discharge instructions Patient Education 08/11/2022 12:53:07 Moderate Conscious Sedation, Adult, Care After Moderate Conscious Sedation, Adult, Care After These instructions provide you with information about caring for yourself after your procedure. Your health care provider may also give you more specific instructions. Your treatment has been plannedaccording to current medical practices, but problems sometimes occur. Call your health care provider if you have any problems or questions after your procedure. What can I expect after the procedure? After your procedure, it is common: To feel sleepy for several hours. To feel clumsy and have poor balance for several hours. To have poor judgment for several hours. To vomit if you eat too soon. Follow these instructions at home: For at least 24 hours after the procedure: Do not: ?Participate in activities where you could fall or become injured. ?Drive. ?Use heavy machinery. ?Drink alcohol. ?Take sleeping pills or medicines that cause drowsiness. ?Make important decisions or sign legal documents. ?Take care of children on your own. Rest. Eating and drinking Follow the diet recommended by your health care provider. If you vomit: ?Drink water, juice, or soup when you can drink without vomiting. ?Make sure you have little or no nausea before eating solid foods. General instructions Have a responsible adult stay with you until you are awake and alert. Take rrhp-unx-hcxjcxp and prescription medicines only as told by your health care provider. If you smoke, do not smoke without supervision. Keep all follow-up visits as told by your health care provider. This is important. Contact a health care provider if: You keep feeling nauseous or you keep vomiting. You feel light-headed. You develop a rash. You have a fever. Get help right away if: You have trouble breathing. This information is not intended to replace advice given to you by your health care provider. Make sure you discuss any questions you have with your health care provider. Document Released: 01/04/2014 Document Revised: 02/26/2018 Document Reviewed: 07/05/2016 [employer] Patient Education 2020 [employer]. 08/11/2022 12:53:04 3- Heart Cath/PCI radial (12/2017) (CUSTOM) HEART CATHETERIZATION/PCI (radial) Discharge Instructions DIET Drink plenty of fluids for the next 48 hours to help your kidneys flush the heart cath dye out of your system ACTIVITY For the next 48 hours: Do not deep bend the wrist Do not lift, push, or pull anything over 5 pounds Do not use the hand/arm to support your weight when rising from a chair or bed Do not drive For the next 7 days: Do not submerse your procedure site in water Do not swim, wash dishes, or take tub baths You may write, eat, type, and shower WOUND CARE Keep a Band-Aid on your procedure site for the next 3-4 days Change the Band-Aid daily or if it gets wet/soiled AFTER YOU GO HOME, CALL YOUR DOCTOR FOR: Any increase in bruising or tenderness from the procedure site Any redness, pus, or other signs of infection at the site A temperature above 100.5 Severe pain at the site DIAL 911 AND RETURN TO THE HOSPITAL FOR: Any bleeding from the procedure site. The site may be bruised or tender, but it should not be bleeding at any time. If your site begins to bleed, hold firm pressure on it and dial 911 to return to the hospital Any increase in swelling at the procedure site. An increase in swelling could mean the area is bleeding under the skin. Hold firm pressure to the site and dial 911 to return to the hospital Document Released: 03/16/2006 Document Revised: 03/02/2013 Document Reviewed: 03/17/2014 ExitCare Patient Information 2015 [employer]. This information is not intended to replace advicegiven to you by your health care provider. Make sure you discuss any questions you have with your health care provider. Follow Up Care 07/17/2022 14:41:31 With:NATE CROW MD Address: [address] [place] [phone]- [phone] When:09/03/2022 10:30:00 [facility] 05-15-2023 Summary of episode note Discharge Instructions Thank you for allowing [facility] to assist you with your healthcare needs. The following is importantdischarge information regarding your hospital visit. Your Care Team DENISSE SUTTON What to do next Scheduled Follow-Up Appointments Appointment Type When With Where Contact InformationCV OV 09/03/2022 10:30 AM EDT [facility] CV Ej LOCK OV 09/17/2022 02:30 PM EDT DENISSE SUTTON [facility] DB Diabetic Individual Visit ([facility]) 10/08/2022 08:30 AM EDT [place] [facility] [phone] Follow Up Appointments Follow Up with NATE CROW MD When 09/03/2022 10:30 AM EDT Where: [address] [facility] [place] [address]- [phone] The Following Activity and Diet Have Been Ordered for You Discharge Activity - Ordered -- Lifting Restricted less than 5 pounds, 08/11/22 8:58:00 EDT Discharge Diet - Ordered -- No changes were made to your diet during your hospital stay. Please resume your pre hospitalization diet on discharge., 08/11/22 8:58:00 EDT Medications Please ask your primary doctor or pharmacist before taking any other medication not listed, including over the counter drugs, herbal medications, vitamins and or supplements as they may interact withyour home medications. What How Much When Why Instructions Last Dose New ranolazine (Ranexa 500 mg oral tablet, extended release) 1 tab(s) by mouth Two (2) times a day Pickup at [place] [address] Unchanged allopurinol (allopurinol 100 mg oral tablet) 1 tab(s) by mouth Once a day Duration: 90 Days Unchanged amLODIPine (amLODIPine 10 mg oral tablet) 1 tab(s) by mouth Once a day Unchanged aspirin (aspirin 81 mg oral delayed release tablet) 1 tab(s) by mouth Once a day Unchanged atorvastatin (atorvastatin 80 mg oral tablet) 1 tab(s) by mouth Once a day Unchanged carvedilol (Coreg 6.25 mg oral tablet) 1 tab(s) by mouth Two (2) times a day Duration: 30 Days Unchanged cholecalciferol (Vitamin D3 50 mcg (2000 intl units) oral capsule) 1 tab(s) by mouth Every day Unchanged DME (Blood Glucose Test Machine) See instructions Brand type per insurance or patient preference. Dx: E11.9, pt insulin dependent, test 4times/ day Unchanged DME (Blood Glucose Test Machine) See instructions Use as directed Brand type per insurance or patient preference Unchanged DME (Blood Glucose Test Strips) See instructions 1 bottle of 100 ---Test 4times/ day--Pt has accucheck guide dx E11.9 Pt insulin dependent. Unchanged DME (DME MISCellaneous) See instructions 2 pairs of compression stockings. Dx CHF. Unchanged DME (Lancets) See instructions qs 1 month supply--One touch delica plus Unchanged DME (Lancets) See instructions qs 1 month supply Unchanged DME (Lancets) See instructions qs 1 month supply--test four times daily--has accucheck guide dx E11.9, insulin dependent Unchanged DME (Pen needles 8 mm) See instructions BD UF 8mm 31 G (short) qs 1 month supply. In absence of PCP Unchanged docusate (DOK 100 mg oral capsule) 1 cap by mouth Two (2) times a day as needed for as needed for constipation Unchanged ezetimibe (Zetia 10 mg oral tablet) 1 tab(s) by mouth Once a day Unchanged gabapentin (gabapentin 100 mg oral capsule) 1 cap by mouth Two (2) times a day Leg pain Duration: 30 Days Unchanged hydrALAZINE (hydrALAZINE 100 mg oral tablet) 1 tab(s) by mouth Three (3) times a day Duration: 30 Days Unchanged insulin glargine (Toujeo Max SoloStar 300 units/ mL subcutaneous solution) 20 unit(s) Subcutaneous Once a day Duration: 30 Days Unchanged insulin lispro (HumaLOG) (HumaLOG KwikPen 100 units/ mL injectable PEN) 5 unit(s) Subcutaneous Two (2) times daily before meals Unchanged melatonin (melatonin 5 mg oral tablet) 1 tab(s) by mouth Daily at bedtime as needed for as needed for insomnia Unchanged multivitamin (Nephro-Todd oral tablet) 1 tab(s) by mouth Once a day Unchanged potassium chloride (potassium chloride 10 mEq oral capsule, extended release) 1 cap by mouth Two (2) times a day Unchanged torsemide (torsemide 100 mg oral tablet) 0.5 tab(s) by mouth Two (2) times a day Duration: 90 Days Pharmacy Information [facility] [address]: [address] [place], [place] [id number] [phone] Please take this list to your next doctor s visit. Bring all medications you take, including over the counter medications, herbals and other supplements with you to your doctor s visit. Patients and families are reminded to discard old lists and to update any records with all medication providers or retail pharmacies. Education Materials Moderate Conscious Sedation, Adult, Care After These instructions provide you with information about caring for yourself after your procedure. Your health care provider may also give you more specific instructions. Your treatment has been plannedaccording to current medical practices, but problems sometimes occur. Call your health care provider if you have any problems or questions after your procedure. What can I expect after the procedure? After your procedure, it is common: To feel sleepy for several hours. To feel clumsy and have poor balance for several hours. To have poor judgment for several hours. To vomit if you eat too soon. Follow these instructions at home: For at least 24 hours after the procedure: Do not: ? Participate in activities where you could fall or become injured. ? Drive. ? Use heavy machinery. ? Drink alcohol. ? Take sleeping pills or medicines that cause drowsiness. ? Make important decisions or sign legal documents. ? Take care of children on your own. Rest. Eating and drinking Follow the diet recommended by your health care provider. If you vomit: ? Drink water, juice, or soup when you can drink without vomiting. ? Make sure you have little or no nausea before eating solid foods. General instructions Have a responsible adult stay with you until you are awake and alert. Take cept-kjy-sbvxltz and prescription medicines only as told by your health care provider. If you smoke, do not smoke without supervision. Keep all follow-up visits as told by your health care provider. This is important. Contact a health care provider if: You keep feeling nauseous or you keep vomiting. You feel light-headed. You develop a rash. You have a fever. Get help right away if: You have trouble breathing. This information is not intended to replace advice given to you by your health care provider. Make sure you discuss any questions you have with your health care provider. Document Released: 01/04/2014 Document Revised: 02/26/2018 Document Reviewed: 07/05/2016 [employer] Patient Education 2020 [employer] HEART CATHETERIZATION/PCI (radial) Discharge Instructions DIET Drink plenty of fluids for the next 48 hours to help your kidneys flush the heart cath dye out of your system ACTIVITY For the next 48 hours: Do not deep bend the wrist Do not lift, push, or pull anything over 5 pounds Do not use the hand/arm to support your weight when rising from a chair or bed Do not drive For the next 7 days: Do not submerse your procedure site in water Do not swim, wash dishes, or take tub baths You may write, eat, type, and shower WOUND CARE Keep a Band-Aid on your procedure site for the next 3-4 days Change the Band-Aid daily or if it gets wet/soiled AFTER YOU GO HOME, CALL YOUR DOCTOR FOR: Any increase in bruising or tenderness from the procedure site Any redness, pus, or other signs of infection at the site A temperature above 100.5 Severe pain at the site DIAL 911 AND RETURN TO THE HOSPITAL FOR: Any bleeding from the procedure site. The site may be bruised or tender, but it should not be bleeding at any time. If your site begins to bleed, hold firm pressure on it and dial 911 to return to the hospital Any increase in swelling at the procedure site. An increase in swelling could mean the area is bleeding under the skin. Hold firm pressure to the site and dial 911 to return to the hospital Document Released: 03/16/2006 Document Revised: 03/02/2013 Document Reviewed: 03/17/2014 ExitCare Patient Information 2015 [employer]. This information is not intended to replace advicegiven to you by your health care provider. Make sure you discuss any questions you have with your health care provider. Additional Information VACCINATE! IT SAVES LIVES! Members of the community who have not yet received the COVID-19 vaccine and would like to receive it can visit one of [facility] vaccine clinics. There are many vaccine clinic locations within the [facility]. For locations and available times, please visit https://gettheshot.coronavirus.[place].gov/. It is important to note that some COVID mobile vaccine clinics are held outdoors and may be canceled in rainy or stormy conditions. To learn more about pediatric vaccinations (ages 5-11), we invite you to visit the [facility] webpage. [email or web address].[email or web address]/pages/[email or web address]-[email or web address] stions.htmlTo learn more about the COVID-19 vaccine, we invite you to visit the CDC website for a list of frequently asked questions.https://www.cdc.gov/coronavirus/2019-ncov/vaccines/faq.html [facility] Patient Portal Access Instructions: Stay connected with your healthcare team and access your personal medical information anytime with the [facility] Patient Portal. Please follow the directions below to create your [employer] account: 1.Access the email account you provided upon registration to the hospital/physician office.2.Look for an invitation email from [facility].3.Open the email and access the invitation link: AcceptInvitation to [employer].4.Fill in the required gilmore to create your account. To access your account, visit [email or web address]. Click the blue button labeled Access Patient Portal and then log in with the username and password that you created in the steps above. You will be able to view your test results, lab results, a summary of your visits, upcoming appointments and more. There is also a convenient messaging option where you can send secure messages to your p [employer]. In addition, you will have the ability to download any documents or summaries to your computer and/or send the information securely to a physician. Remember that your healthcare information is confidential, so carefully consider who you will allowto register on the [facility] Patient Portal for access to your information. You can also access the [facility] Patient Portal on the [employer] toby. Simply click on Patient Portal and then log into your account. If you would like to receive a full copy of your medical records, please contact the [facility] Medical Records Department by calling [phone], Thursday through Thursday between 8 a.m. and 4:30 p.m. HOW TO SAFELY DISPOSE OF PRESCRIPTION MEDICATIONS Please use one of the following methods to safely dispose of your unused medications. 1.Use a drug disposal kit: the drug disposal pouch allows you to safely discard your old and unuseddrugs. Ask your nurse to give you one when you are discharged.2.Visit a local take-back location: Many local pharmacies and police departments have programs that collect old and unwanted prescriptiondrugs. Call your local pharmacy or go to http://bit.ly/1T0Id4h to find one close to you.3.Make use of household items: Use cat litter or old coffee grounds to dispose medications if other options arenot available. Mix your drugs with these household products, seal them in an airtight container andthrow it into the garbage. Call [facility]: [phone] to be sure your drugs can be disposed of in this way. Some medicines may require a different approach.4.Never flush your medications down the toilet. IF YOU HAVE BEEN PRESCRIBED AN OPIOID FOR PAIN If you have been prescribed an opioid (such as hydrocodone, oxycodone or morphine), it is critical to understand the possible side effects and risks of opioid pain medications. Even when taken as directed, opioids can have several side effects including: Tolerance, meaning you might need to take more of a medication for the same pain relief. Nausea, vomiting and/or constipation. Sleepiness, dizziness, dry mouth, confusion, depression or itching. Physical dependence, meaning you have withdrawal symptoms when a medication is stopped, can develop within a few days. KNOW YOUR RESPONSIBILITIES It is important to know exactly how much and how often to take the opioid pain medications you are prescribed. Never take opioids in higher amounts or more often than prescribed. Do not combine opioids with alcohol or other drugs that cause drowsiness, such as benzodiazepines, also known as benzos, including diazepam and alprazolam, muscle relaxants or sleep aids. Never sell or share prescription opioids. This is illegal. Store opioids in a secure place and out of reach of others (including children, family, friends and visitors). The last page of this document has been signed and retained as a CHART COPY. Signatures Patient Education Materials Moderate Conscious Sedation, Adult, Care After 3- Heart Cath/PCI radial (12/2017) (CUSTOM) Medication Leaflets My discharge plan and instructions have been reviewed and explained to me and I,ZAYDA DAVIS understand my current condition and have read and understand these discharge instructions. I have received a written copy of the plan/instructions. If I have questions, I am aware that I should contactmy doctor. Patient/Identity Management Developer Signature: Date/Time: Relationship to Patient: Witness Name/Signature: Date/Time: [id number] Discharge summary Date of Service 08/11/22 Discharge Diagnosis CAD HTN HLD Hospital Course 56-year-old female who came to the hospital for left heart catheterization for chest pain. Patient with left heart catheterization that showed a moderate disease of RCA while the patent stent in LAD and RCA. Patient is started on Ranexa Case was discussed with the interventional cardiology and decision is made to optimize antianginal therapy. Allergies NKA Consults No qualifying data available. Objective Vitals and Measurements T: 36.6 C (Oral) HR: 58 RR: 20 BP: 146/74 SpO2: 98% HT: 155 cm WT: 102.3 kg Weight Dosing Weight: 102.3 kg (08/11/22) General Appearance: Alert and oriented x3 Head: No visible trauma EENT: Bilateral equal pupil no ptosis Neck: No JVD on examination. Cardiac: S1-S2, regular rate rhythm Lungs: Bilateral equal air entry Abdomen: Nondistended nontender Musculoskeletal: No complaints of muscular pain Extremities: No significant lower extremity edema Code Status No qualifying data available. Admission Date 08/11/22 Discharge Date 08/11/22 Medications New Prescription ranolazine (Ranexa 500 mg oral tablet, extended release)1 tab(s) by mouth two (2) times a day. Refills: 0. Unchanged allopurinol (allopurinol 100 mg oral tablet)1 tab(s) by mouth once a day for 90 Days. Refills: 3. amLODIPine (amLODIPine 10 mg oral tablet)1 tab(s) by mouth once a day. Refills: 11. aspirin (aspirin 81 mg oral delayed release tablet)1 tab(s) by mouth once a day. atorvastatin (atorvastatin 80 mg oral tablet)1 tab(s) by mouth once a day. Refills: 3. carvedilol (Coreg 6.25 mg oral tablet)1 tab(s) by mouth two (2) times a day for 30 Days. Refills: 11. cholecalciferol (Vitamin D3 50 mcg (2000 intl units) oral capsule)1 tab(s) by mouth every day. Refills: 11. DME (Blood Glucose Test Machine)Brand type per insurance or patient preference. Dx: E11.9, pt insulin dependent, test 4times/day. Refills: 0. DME (Blood Glucose Test Machine)Use as directed Brand type per insurance or patient preference. Refills: 0. DME (Blood Glucose Test Strips)1 bottle of 100 ---Test 4times/day--Pt has accucheck guide dx E11.9 Pt insulin dependent.. Refills: 11. DME (DME MISCellaneous)2 pairs of compression stockings. Dx CHF.. Refills: 0. DME (Lancets)qs 1 month supply--One touch delica plus. Refills: 11. DME (Lancets)qs 1 month supply. Refills: 11. DME (Lancets)qs 1 month supply--test four times daily--has accucheck guide dx E11.9, insulin dependent. Refills: 11. DME (Pen needles 8 mm)BD UF 8mm 31 G (short) qs 1 month supply. In absence of PCP. Refills: 0. docusate (DOK 100 mg oral capsule)1 cap by mouth two (2) times a day as needed as needed for constipation. Refills: 3. ezetimibe (Zetia 10 mg oral tablet)1 tab(s) by mouth once a day. Refills: 3. gabapentin (gabapentin 100 mg oral capsule)1 cap by mouth two (2) times a day for 30 Days. Refills:5. hydrALAZINE (hydrALAZINE 100 mg oral tablet)1 tab(s) by mouth three (3) times a day for 30 Days. Refills: 11. insulin glargine (Toujeo Max SoloStar 300 units/mL subcutaneous solution)20 unit(s) Subcutaneous once a day for 30 Days. Refills: 1. insulin lispro (HumaLOG) (HumaLOG KwikPen 100 units/mL injectable PEN)5 unit(s) Subcutaneous two (2) times daily before meals. Refills: 3. melatonin (melatonin 5 mg oral tablet)1 tab(s) by mouth daily at bedtime as needed as needed for insomnia. multivitamin (Nephro-Todd oral tablet)1 tab(s) by mouth once a day. potassium chloride (potassium chloride 10 mEq oral capsule, extended release)1 cap by mouth two (2)times a day. Refills: 3. torsemide (torsemide 100 mg oral tablet)0.5 tab(s) by mouth two (2) times a day for 90 Days. Refills: 3. Follow Up Appointments No qualifying data available. Follow Up Labs/Studies Discharge Labs No Follow-up Labs Discharge Studies No Follow-up Studies Discharge Diet Discharge Diet - Ordered -- No changes were made to your diet during your hospital stay. Please resume your pre hospitalization diet on discharge., 08/11/22 8:58:00 EDT Discharge Activity Discharge Activity - Ordered -- Lifting Restricted less than 5 pounds, 08/11/22 8:58:00 EDT Readmission Risk/Palliative Score No qualifying data available. Digitally Signed by MARCUS TORRES MD on 08/11/2022 09:02 AM [id number] [facility] July 23, 2022 4:21pm Note Date/Time July 23, 2022 3:5 9pm [facility] Medical Records Department [address] [place] [id number] Instructions for Home/Discharge Instructions 07/23/22 1559 MR#: [id number] Acct: [id number] Name: ZAYDA DAVIS Rep #:[id number] : 1965 56 From: Patsy Wyman DO PCP: TREESA Mas Status:ADM I NO Discharge Instructions Diet Discharge Diet: 1800 Calorie Control Diet Activity Discharge Activity: Return to Normal Activity Weight Bearing Status: Full weight bearing Follow Up Care Test Results: Test results from this visit will be discussed in further detail at your follow- up appointment, if applicable. Discharge Plan Admission Admit Date/Time: 07/22/22 19:11 Primary Reason for Your Visit: depression Attending Provider: Patsy Wyman Primary Care Provider: Denisse Sutton NP Instructions Additional Instructions / Restrictions: Follow-up with counseling center regarding medication/treatment for depression Discharge Orders/Prescriptions Prescriptions: Continued torsemide 100 mg tablet 50 mg PO BID melatonin 5 mg tablet 5 mg PO HS PRN (Reason: Sleep) aspirin 81 MG tablet,chewable 81 mg PO DAILY@0800 Hold Instructions: Hold baby aspirin as patient is on Eliquis. atorvastatin 80 MG tablet 80 mg PO QHS carvedilol 12.5 mg tablet 6.25 mg PO BID allopurinol 100 mg tablet 100 mg PO DAILY hydralazine 100 mg tablet 100 mg PO TID acetaminophen [Tylenol] 325 mg Tablet 650 mg PO Q6H PRN PRN (Reason: Pain 1-10 Or Fever) Qty: 0 0RF potassium chloride 10 mEq Tablet,Er Particles/Crystals 10 meq PO BID amlodipine 10 MG tablet 10 mg PO DAILY insulin aspart U-100 [Novolog FlexPen U-100 Insulin] 100 unit/mL (3 mL) insulin pen 5 unit SUBCUT BID Label Comments: AT LUNCH AND DINNER. IF BS LESS THAN 80 DO NOT GIVE Toujeo SoloStar U-300 Insulin 300 unit/mL (1.5 mL) insulin pen 20 unit SC BREAKFAST Nephro-Todd 0.8 mg tablet 1 tab DAILY ezetimibe 10 mg tablet 10 mg DAILY cholecalciferol (vitamin D3) 50 mcg (2,000 unit) capsule 50 mcg DAILY Discontinued apixaban 5 MG tablet 5 mg PO BID Rx Instructions: . cefdinir 300 mg capsule 300 mg PO Q48H Qty: 2 0RF Rx Instructions: Take cefdinir after hemodialysis on days of dialysis. Referrals / Follow Up: Denisse Sutton NP, [facility] [Primary Care Provider] - Within 2 Weeks Disposition Disposition (needs filled in before D/C Order can be placed): Home, Self Care 07/23/22 1621<Electronically signed by Patsy Wyman DO>Patsy Wyman DO CC: OLGA LIDIA-Julian Sutton ~ Signed [facility] Work Phone: [phone] Montenegro [facility] July 22, 2022 11:41pm Note Date/Time July 22, 2022 4:4 6pm [facility] Medical Records Department [address] [place] [address] Emergency Department Summary 07/22/22 MR#: [id number] Acct: [id number] Name: ZADYA DAVIS Rep #:[id number] : 1965 56 From: Patsy Montenegro MD PCP: TERESA Mas Status:ADM I NO Location: [place] [address] HPI History of Present Illness Chief Complaint: General Illness Detail of Chief Complaint: Altered mental status Informant: patient and family Narrative Narrative: Patient presents with her daughter for evaluation of altered mental status. Patient was recently hospitalized for pneumonia. She had an appointment with her primary care physician today for follow-up and was noted to be falling asleep during the exam. Nurse practitioner seeing her was concerned and asked them to bring her to the emergency room. Daughter states that she feels the patient had some slurred speech last evening. She states that the patient has been coming home from daycare and going to her room and falling asleep in front of TV. She is on dialysis Thursday, , and Thursday. She had full run ofdialysis today, but did state that the nurse called stating that she was holdinga lot of extra fluid and were questioning whether she was increasing her p.o. fluids at home. [facility] Medical History Acute renal injury due to circulatory failure Anxiety Asthma Atherosclerosis of coronary artery of [place] heart without angina pectoris Bilateral carotid bruits Cardiology follow-up encounter Chronic heart failure with preserved ejection fraction (HFpEF) COVID-19 (01/20/21) Debility Depression Diabetes Easy bruising ESRD (end stage renal disease) on dialysis Essential hypertension Former smoker Generalized weakness GERD (gastroesophageal reflux disease) Headache History of cholelithiasis History of non-ST elevation myocardial infarction (NSTEMI) (01/20/21) History of renal calculi Hyperlipidemia Hypoxia Inability to walk Insulin dependent diabetes mellitus Ischemic cerebrovascular accident (CVA) (04/2018) Kidney disease Low iron Malignant hypertension Morbid obesity Non-STEMI (non-ST elevated myocardial infarction) (01/20/21) Respiratory insufficiency Type 2 diabetes mellitus without complication Wears glasses Home Medications aspirin 81 mg chewable tablet 81 mg PO DAILY@0800 HEART HEALTH 07/15/18 [History Last Taken 05/27/21] apixaban 5 mg tablet 5 mg PO BID BLOOD THINNER 08/04/18 [History Last Taken 01/19/21] atorvastatin 80 mg tablet 80 mg PO QHS CHOLESTEROL 08/04/18 [History Last Taken 01/19/21] torsemide 100 mg tablet 50 mg PO BID diuretic 04/14/19 [History Last Taken 05/27/21] melatonin 5 mg tablet 5 mg PO HS PRN Sleep 08/03/20 [History Last Taken 01/19/21] allopurinol 100 mg tablet 100 mg PO DAILY gout 09/20/20 [History Last Taken 01/19/21] carvedilol 12.5 mg tablet 6.25 mg PO BID blood pressure 09/20/20 [History Last Taken 05/27/21] hydralazine 100 mg tablet 100 mg PO TID blood pressure 09/20/20 [History Last Taken 05/27/21] acetaminophen 325 mg tablet (Tylenol) 650 mg PO Q6H PRN PRN Pain 1-10 Or Fever #0 tabs 10/03/20 [Rx Last Taken Unknown] amlodipine 10 mg tablet 10 mg PO DAILY blood pressure 01/20/21 [History Last Taken 05/27/21] potassium chloride 10 mEq tablet,extended release(part/cryst) 10 meq PO BID supplement 01/20/21 [History Last Taken 05/27/21] insulin aspart U-100 100 unit/mL (3 mL) subcutaneous pen (Novolog FlexPen U-100 Insulin aspart) 5 unit subcut BID blood sugar 03/21/21 [History Last Taken Unknown] insulin glargine U-300 conc 300 unit/mL (1.5 mL) subcutaneous pen (Toujeo SoloStar U-300 Insulin) 20 unit subcut BREAKFAST diabetes 03/21/21 [History Last Taken Unknown] cholecalciferol (vitamin D3) 50 mcg (2,000 unit) capsule 50 mcg DAILY Check withprimary doctor 07/12/22 [History Last Taken Unknown] ezetimibe 10 mg tablet 10 mg DAILY Check with primary doctor 07/12/22 [History Last Taken Unknown] nystatin 100,000 unit/gram topical powder (Nyamyc) 1 applic topical BID PRN RASH/YEAST 07/12/22 [History Last Taken Unknown] vitamin B complex-vitamin C-folic acid 0.8 mg tablet (Nephro-Todd) 1 tab DAILY Check with primary doctor 07/12/22 [History Last Taken Unknown] cefdinir 300 mg capsule 300 mg PO Q48H #2 caps 07/15/22 [Rx Last Taken Unknown] Allergy/AdvReac Type Severity Reaction Status Date / Time No Known Allergies Allergy Verified 07/22/22 16:06 Family History Mother Diabetes Heart disease Hypertension Father Hypertension Heart disease Brother Heart disease Hypertension Sister Heart disease Diabetes Surgical History History of appendectomy History of arteriovenostomy for renal dialysis (~03/2021) History of History of cholecystectomy History of coronary artery stent placement (06/2016) History of left heart catheterization (05/27/21) Social History Smoking Status: Former smoker alcohol intake: never ROS ROS ED Constitutional Constitutional ED: Denies chills or fever(s) Eyes Eyes: Denies discharge from eye(s) ENT ENT ED: Denies discharge from eye(s), rhinorrhea or sore throat Cardiovascular Cardiovascular: Denies chest pain or palpitations Respiratory/Chest Respiratory/Chest: Denies cough or dyspnea Gastrointestinal Gastrointestinal: Denies abdominal pain, nausea or vomiting Genitourinary Genitourinary ED: Reports other Details: On dialysis but still makes some urine. Patient denies dysuria. Integumentary Denies Abrasions or rash Neurologic Neurologic: Reports weakness Psychiatric Psychiatric: Denies anxiety or depression Allergic/Immunologic Allergic/Immunologic ED: Denies lip swelling or urticaria EXAM Physical Exam Narrative Exam Narrative: Patient resting with eyes closed but will answer questions appropriately. Const Vital Signs: 07/22/22 16:00 07/22/22 17:09 07/22/22 18:08 Temperature 96.9 F L Temperature Source Temporal Pulse Rate 60 67 Respiratory Rate 18 18 Respiratory Pattern Normal Blood Pressure 130/59 H Blood Pressure Mean 82 Pulse Ox 97 95 Oxygen Delivery Method Room Air Room Air Positive well nourished and well developed General Appearance ED: well developed HEENT HEENT Narrative: Old appearing ecchymosis noted to the left forehead and left maxilla. Family states this is from a fall a couple weeks ago. Eyes EOMs intact bilaterally Neck no lymphadenopathy Chest Wall inspection of chest normal and palpation of chest normal Resp normal respiratory effort and clear to auscultation bilaterally Cardio regular rate and regular rhythm GI normal to inspection, nondistended, normoactive bowel sounds Extremity Extremity Narrative: Generalized weakness throughout with no focal deficits. Neuro Neuro Narrative: Patient ANO x2. No obvious slurred speech noted at this time. MDM MDM MDM Narrative Medical decision making narrative: Patient placed on cardiac catheterization technician. CT head obtained given her altered mentation. EKG obtained to evaluate for cardiac arrhythmia/ischemia. Chest x-ray obtained to evaluate for acute lung pathology, cardiac size, or mediastinal abnormality. Labwork obtained to evaluate for leukocytosis, anemia, and electrolyte derangement. ABG obtained to ensure no significant evidence of CO2 retention. History & Record Review Additional record(s) reviewed:: Prior inpatient record and Prior ED visit Lab Data Attestation: I reviewed the patient's lab results. Labs: Laboratory Results - last 24 hr 07/22/22 07/22/22 07/22/22 17:00 17:00 17:00 WBC 7.9 RBC 3.09 L Hgb 10.1 L Hct 32.6 L MCV 105.5 H MCH 32.7 H MCHC 31.0 L RDW Std Deviation 59.0 H RDW Coeff of [place] 15.7 H Plt Count 207 MPV 12.7 H Immature Gran % (Auto) 0.900 Neut % (Auto) 74.3 H Lymph % (Auto) 11.2 L [place] % (Auto) 8.3 Eos % (Auto) 4.7 Baso % (Auto) 0.6 Absolute Neuts (auto) 5.9 Absolute Lymphs (auto) 0.89 Nucleated RBC % 0 Sodium 141 Potassium 4.2 Chloride 105 Carbon Dioxide 32.0 Anion Gap 4 L BUN 31 H Creatinine 4.71 H Estim Creat Clear Calc 10.06 Est GFR (MDRD) Af Amer 12 L Est GFR (MDRD) Non-Af 10 L BUN/Creatinine Ratio 6.6 L Glucose 96 Calcium 8.7 Total Bilirubin 0.50 Direct Bilirubin 0.16 AST 53 H ALT 92 H Alkaline Phosphatase 75 Ammonia 43.0 H Troponin I High Sens 12 Total Protein 6.9 Albumin 3.4 Globulin 3.5 ABG Data ABG results: ABG 07/22/22 17:59 Specimen Type ART Sample Site R Radial pH 7.51 H Bicarbonate Actual 31.9 H Total CO2 33 Base Excess 9 H O2 Saturation 97 ABG pCO2 40.0 ABG pO2 80 O2 Delivery Device Room Air Radiography Chest X-Ray - ED: 1 View, Read by ED Physician and Chronic Changes Diagnostic Testing: Clinical Impression(s) from Imaging Studies Brain CT 07/22/22 16:41 IMPRESSION: There are no acute findings. Chronic involutional changes of the brain. Electronically Signed: Emery Adkins MD at 17:46 EDT , Chest X-Ray 07/22/22 16:53 IMPRESSION: There are no acute findings. Electronically Signed: Emery Adkins MD at 17:25 EDT , EKG Initial EKG: Attestation: I personally reviewed and interpreted this EKG as follows: Interpretation: Sinus Bradycardia (Sinus bradycardia at 59 with first-degree AV block. No acute ST change.) Treatment and Re-Evaluation :: CBC is unremarkable. Hemoglobin is 10.1, increased when compared to prior labs. Chemistry studies reveal a BUN of 31 and a creatinine of 4.71. She did have dialysis today. LFTs significant for an AST of 53 and an ALT of 92. Alk phos is normal at 75. Ammonia is slightly elevated at 43. Head CT reveals no evidence of acute injury. Portable chest x-ray reveals chronic changes with no obvious infiltrate. ABG was obtained and reveals a pH of 7.509 with a PCO2 of 40. Urinalysis has been ordered to ensure no infection, however patient does not make much urine as she is dialysis dependent. Given her current mentation Tien not feel she is safe at home as she will fall asleep during normal conversation. I will speak with hospitalist regarding admission. Discharge Plan Dx/Rx/DC Orders Clinical Impression: Acute alteration in mental status Disposition Disposition: Acute Care Hospital [facility] What to do if you have Problems For any increased pain, shortness of breath, bleeding, nausea or vomiting, chestpain, or any unexpected problems, contact your Primary Care Provider. Call [facility] ([phone]) or report to the closest Emergency Room. Call 911 if necessary. 07/22/22 2925 <Electronically signed by Patsy Montenegro MD> Cosigner Signature (if applicable): CC: TERESA Sutton ~ Signed [facility] Work Phone: [phone] 281-971704-25-2023 History and physical note Author Dr. Wyman [facility] July 22, 2022 8:33pm Note Date/Time July 22, 2022 8:[address] [facility] Medical Records Department [address] [place] [address] H&P Exam - Hospitalist 07/22/222009 MR#: [id number] Acct: [id number] Name: ZAYDA DAVIS Rep #:[id number] : 1965 56 From: Patsy Wyman DO PCP: TERESA Mas Status:ADM I NO Location: [place] [id number] HPI - General General Date of Admission: 07/22/22 Date of Service: 07/22/22 Chief Complaint: Somnolence, lethargy HPI Narrative ZAYDA DAVIS, is a 56 F who presents to the emergency room at [facility] after being sent in from her physician's office due to lethargy and somnolence and her physician's office. Complete review of systems was not able to be obtained from the patient due to the fact she is a poor informant and she also has a history of cerebrovascular disease in the past. Patient lives with her sister who I obtained the medical history from by phone. Patient's sister states that the patient has been depressed over the last several months, there is some conflict between the patient and her daughter who is into illicit drug activity according to the sister. She states that the patient has conversations with her daughter and then becomes upset and does not sleep at night and sometimes becomes aggravated. Patient recently had a fall outside her home approximately a week ago, according to the sister, she does notknow if the patient lost consciousness during the fall, she does have areas of ecchymosis over her facial areas. Patient has end-stage renal disease and undergoes dialysis Thursday andSaturdays. Work-up in the emergency room included a CBC which showed a normal white blood cell count, hemoglobin was 10.1, chemistry profile revealed a creatinine of 4.71, BUN of 31, and a glucose of 96. Patient's chest x-ray showed no evidence of pneumonia, CT of the brain showed no acute findings, there was chronic involutional changes of the brain noted. Patient's urinalysis was unremarkable. An arterial blood gas was obtained which did not show the patient to be hypoxicor hypercapnic. Patient's ammonia level today was 43. Patient was placed into observation status on PCU, I will obtain an MRI of the brain to verify that the patient has not had a recent stroke, patient will remain on her medications and her blood sugars will be monitored, labs will be repeated tomorrow. This may heel turner to be a psychiatric problem, patient's sister states that the patient did go to see a psychiatrist 1 time but refused to go back to see the psychiatrist. [facility] Medical History (Updated 07/22/22 @ 19:16 by Gayla Candelario) Acute renal injury due to circulatory failure Anxiety Asthma Atherosclerosis of coronary artery of [place] heart without angina pectoris Bilateral carotid bruits Cardiology follow-up encounter Chronic heart failure with preserved ejection fraction (HFpEF) COVID-19 (01/20/21) Debility Depression Diabetes Easy bruising ESRD (end stage renal disease) on dialysis Essential hypertension Former smoker Generalized weakness GERD (gastroesophageal reflux disease) Headache History of cholelithiasis History of non-ST elevation myocardial infarction (NSTEMI) (01/20/21) History of renal calculi Hyperlipidemia Hypoxia Inability to walk Insulin dependent diabetes mellitus Ischemic cerebrovascular accident (CVA) (04/2018) Kidney disease Low iron Malignant hypertension Morbid obesity Non-STEMI (non-ST elevated myocardial infarction) (01/20/21) Respiratory insufficiency TIA (transient ischemic attack) Type 2 diabetes mellitus without complication Wears glasses Home Medications aspirin 81 mg chewable tablet 81 mg PO DAILY@0800 HEART HEALTH 07/15/18 [History Last Taken 05/27/21] apixaban 5 mg tablet 5 mg PO BID BLOOD THINNER 08/04/18 [History Last Taken 01/19/21] atorvastatin 80 mg tablet 80 mg PO QHS CHOLESTEROL 08/04/18 [History Last Taken 01/19/21] torsemide 100 mg tablet 50 mg PO BID diuretic 04/14/19 [History Last Taken 05/27/21] melatonin 5 mg tablet 5 mg PO HS PRN Sleep 08/03/20 [History Last Taken 01/19/21] allopurinol 100 mg tablet 100 mg PO DAILY gout 09/20/20 [History Last Taken 01/19/21] carvedilol 12.5 mg tablet 6.25 mg PO BID blood pressure 09/20/20 [History Last Taken 05/27/21] hydralazine 100 mg tablet 100 mg PO TID blood pressure 09/20/20 [History Last Taken 05/27/21] acetaminophen 325 mg tablet (Tylenol) 650 mg PO Q6H PRN PRN Pain 1-10 Or Fever #0 tabs 10/03/20 [Rx Last Taken Unknown] amlodipine 10 mg tablet 10 mg PO DAILY blood pressure 01/20/21 [History Last Taken 05/27/21] potassium chloride 10 mEq tablet,extended release(part/cryst) 10 meq PO BID supplement 01/20/21 [History Last Taken 05/27/21] insulin aspart U-100 100 unit/mL (3 mL) subcutaneous pen (Novolog FlexPen U-100 Insulin aspart) 5 unit subcut BID blood sugar 03/21/21 [History Last Taken Unknown] insulin glargine U-300 conc 300 unit/mL (1.5 mL) subcutaneous pen (Toujeo SoloStar U-300 Insulin) 20 unit subcut BREAKFAST diabetes 03/21/21 [History Last Taken Unknown] cholecalciferol (vitamin D3) 50 mcg (2,000 unit) capsule 50 mcg DAILY Check withprimary doctor 07/12/22 [History Last Taken Unknown] ezetimibe 10 mg tablet 10 mg DAILY Check with primary doctor 07/12/22 [History Last Taken Unknown] nystatin 100,000 unit/gram topical powder (Nyamyc) 1 applic topical BID PRN RASH/YEAST 07/12/22 [History Last Taken Unknown] vitamin B complex-vitamin C-folic acid 0.8 mg tablet (Nephro-Todd) 1 tab DAILY Check with primary doctor 07/12/22 [History Last Taken Unknown] cefdinir 300 mg capsule 300 mg PO Q48H #2 caps 07/15/22 [Rx Last Taken Unknown] Allergy/AdvReac Type Severity Reaction Status Date / Time No Known Allergies Allergy Verified 07/22/22 16:06 Family History Mother Diabetes Heart disease Hypertension Father Hypertension Heart disease Brother Heart disease Hypertension Sister Heart disease Diabetes Surgical History History of appendectomy History of arteriovenostomy for renal dialysis (~03/2021) History of History of cholecystectomy History of coronary artery stent placement (06/2016) History of left heart catheterization (05/27/21) Social History Smoking Status: Former smoker alcohol intake: never ROS ROS Narrative Review of systems was unreliable due to patient's mental status and chronic cognitive impairment from a previous stroke, the patient is a poor informant, medical information was obtained from the patient's sister who she lives with and helps take care of her. Vital Signs Vital Signs Vital Signs: 07/22/22 16:00 07/22/22 17:09 07/22/22 18:08 Temperature 96.9 F L Temperature Source Temporal Pulse Rate 60 67 Respiratory Rate 18 18 Respiratory Pattern Normal Blood Pressure 130/59 H Blood Pressure Mean 82 Blood Pressure Source Blood Pressure Position Blood Pressure Location Pulse Ox 97 95 Oxygen Delivery Method Room Air Room Air 07/22/22 18:38 07/22/22 19:10 Temperature 97.8 F 98.2 F Temperature Source Temporal Temporal Pulse Rate 60 58 L Respiratory Rate 14 16 Respiratory Pattern Blood Pressure 145/67 H 99/49 L Blood Pressure Mean 93 65 Blood Pressure Source Monitor Blood Pressure Position Semi-Fowlers Blood Pressure Location Right Arm Pulse Ox 96 94 Oxygen Delivery Method Room Air Room Air Weight Weight: 98.3 kg Body Mass Index (BMI) 39.6 Physical Exam Const alert Constitutional Narrative: Patient appears older than her stated age, she is oriented to person and place but not the year General Appearance: cooperative, well kempt and well developed Orientation / Consciousness: awake, oriented to person and oriented to place HEENT normocephalic and moist oral mucous membranes HEENT Narrative: Patient has old areas of ecchymosis from her previous fall over her facial areas Eyes PERRL, EOMs intact bilaterally and conjunctivae normal Neck supple, no JVD, thyroid normal and no carotid bruits General: trachea midline Resp normal respiratory effort, no retractions, no use of accessory muscles and clearto auscultation bilaterally Auscultation: Negative for rales, rhonchi or wheezes Cardio regular rate, regular rhythm, S1 normal heart sound, S2 normal heart sound, no murmurs, no rub and no gallops GI normal to inspection, nondistended, normoactive bowel sounds, soft to palpation,non-tender and non-distended Extremity no clubbing, cyanosis or edema Skin no rashes or lesions noted General Skin Exam: no breakdown Neuro oriented x3, CN's II-XII intact bilaterally, moves all extremities, no focal motor deficits and no sensory deficits noted Neuro Narrative: Patient has apparent cognitive impairment, she is able to answer simple questions appropriately, she does not know the year and was at first unsure of the month. Sensorium / Orientation: awake, alert, oriented to person and oriented to place Speech: speech normal Psych Psych Narrative: Patient's affect is flat Results Lab / Micro Data Result Diagrams: 07/22/22 17:00 07/22/22 17:00 Labs: Laboratory Results - last 24 hr 07/22/22 17:00: WBC 7.9, RBC 3.09 L, Hgb 10.1 L, Hct 32.6 L, MCV 105.5 H, MCH 32.7 H, MCHC 31.0 L, RDW Std Deviation 59.0 H, RDW Coeff of [place] 15.7 H, Plt Count 207, MPV 12.7 H, Immature Gran % (Auto) 0.900, Neut % (Auto) 74.3 H, Lymph% (Auto) 11.2 L, [place] % (Auto) 8.3, Eos % (Auto) 4.7, Baso % (Auto) 0.6, Absolute Neuts (auto) 5.9, Absolute Lymphs (auto) 0.89, Nucleated RBC % 0 07/22/22 17:00: Sodium 141, Potassium 4.2, Chloride 105, Carbon Dioxide 32.0, Anion Gap 4 L, BUN 31 H, Creatinine 4.71 H, Estim Creat Clear Calc 10.06, Est GFR (MDRD) Af Amer 12 L, Est GFR (MDRD) Non-Af 10 L, BUN/Creatinine Ratio 6.6 L,Glucose 96, Calcium 8.7, Total Bilirubin 0.50, Direct Bilirubin 0.16, AST 53 H, ALT 92 H, Alkaline Phosphatase 75, Troponin I High Sens 12, Total Protein 6.9, Albumin 3.4, Globulin 3.5 07/22/22 17:00: Ammonia 43.0 H 07/22/22 18:00: Urine Color Yellow, Urine Clarity Sl. Cloudy, Urine pH 7.0, Ur Specific [place] 1.010, Urine Protein 100 H, Urine Glucose (UA) Normal, Urine Ketones 5 H, Urine Occult Blood 10 H, Urine Nitrite Negative, Urine Bilirubin 3 H, Urine Urobilinogen 1 H, Ur Leukocyte Esterase 100 H, Urine RBC 0 SEEN, Urine WBC 0-5 SEEN, Ur Squamous Epith Cells 0 SEEN, Urine Bacteria 0 SEEN, Hyaline Casts 10-25 SEEN, Urine Mucus 0 SEEN ABG Data ABG results: ABG 07/22/22 17:59 Specimen Type ART Sample Site R Radial pH 7.51 H Bicarbonate Actual 31.9 H Total CO2 33 Base Excess 9 H O2 Saturation 97 ABG pCO2 40.0 ABG pO2 80 O2 Delivery Device Room Air Radiology Impression Brain CT 07/22/22 16:41 IMPRESSION: There are no acute findings. Chronic involutional changes of the brain. Electronically Signed: Emery Adkins MD at 17:46 EDT , Chest X-Ray 07/22/22 16:53 IMPRESSION: There are no acute findings. Electronically Signed: Emery Adkins MD at 17:25 EDT , Assessment & Plan Assessment/Plan (1) Acute alteration in mental status: PLAN: Plan 1. Increased somnolence today-etiology unclear, patient was placed in observation status on PCU, she will be monitored, blood sugars will be monitored, patient will undergo an MRI tomorrow to rule out a recent stroke. Again, patient's somnolence may be secondary to sleep deprivation or underlying depression. It appears that the patient does have an underlying depression which is not at this time being treated-she will need follow-up as an outpatientregarding this. #2 type 2 diabetes-patient's blood sugars will be monitored, she does not appearto be hypoglycemic at this time, sliding scale insulin will be administered as needed #3 cerebrovascular disease by history-again patient will have an MRI performed to rule out recent stroke #4 chronic depression-this may be secondary to an underlying depression or secondary to past history of cerebrovascular accident, patient will need follow-up with a psychiatrist as an outpatient or her PCP #5 end-stage renal disease on chronic dialysis-patient's next dialysis day is #6 coronary artery disease-stable at this time, I have decided to perform an echocardiogram on the patient while she is in the hospital to make sure her ejection fraction has not diminished, according to the patient's sister, she is due to undergo a repeat heart catheterization in the next 2 weeks (August 11), according to the sister, she had an abnormal stress test which indicated possible ischemia. #7 essential hypertension-patient will remain on her present medication #8 past history of chronic anticoagulant usage-according to the patient's sister, she was on Eliquis up until recently when a billing machine operator took her off the medication due to the fact he could not come up with a reason why she was taking it and the family was not sure why she was on it. She had been placed onit by billing machine operator in [place], according to the sister, her new billing machine operator was going to attempt to contact that billing machine operator to find out why the patient was taking Eliquis. She is no longer on Eliquis according to the sister, I have stopped this medication. Total clinical time spent by myself addressing the patient's medical issues, reviewing all of her data, and collaborating with patient's care team: 75 minutes Charges/Coding Visit Charges Inpatient E&M: 08388 Init Hosp L3 07/22/222030 <Electronically signed by Patsy Wyman DO> Cosigner Signature (if applicable): CC: TERESA Sutton; Dr. Patsy Wyman DO~ Signed ADDENDUM by Dr. Patsy Wyman DO on 07/22/22 at 2032 Addendum Additional note: After talking with the patient's sister dominic by phone, I have decided to have mental health see the patient, her sister states that the patient has voiced suicidal thoughts to her, she has not carried out a suicide attempt or put in place a plan according to her sister. 07/22/222032<Electronically signed by Patsy Wyman DO> Cosigner Signature (if applicable): cc: TERESA Sutton; Dr. Patsy Wyman, DO ~* Signed [facility] Work Phone: [phone] 489-837504-18-[address] [facility] July 15, 2022 4:41pm Note Date/Time July 15, 2022 4:[address] [facility] Medical Records Department [address] [place] [address] Discharge Summary 07/15/22 1637 MR#: [id number] Acct: [id number] Name: ZAYDA DAVIS Rep #:[id number] : 1965 56 From: Mahamed Penn PCP: TERESA Mas Status:ADM I N Location: [place] [address] Providers Date of Admission: 07/12/22 Date of Discharge: 07/15/22 Primary Care Physician: TERESA Mas Consultations 07/13/22 18:25 Consult: Nephrology Routine Consulting Provider: Sanaz Gomez Reason for Consult: ESRD EMERGENT Consult: No MD Notified: Yes Date Notified: 07/13/22 Time Notified: 18:26 Method of Notification: Verbal Reason For Visit: RIGHT LOWER LOBE PNEUMONIA, HYPOXIA, BLUNT TRAUMA Diagnosis Discharge Diagnosis (1) ESRD (end stage renal disease) on dialysis: Status: Acute Code(s): N18.6 - End stage renal disease; Z99.2 - Dependence on renal dialysis (2) Closed head injury: Status: Acute Code(s): S09.90XA - Unspecified injury of head, initial encounter (3) Community acquired pneumonia: Status: Acute Code(s): J18.9 - Pneumonia, unspecified organism Plan This is a 56-year-old female was admitted for evaluation of vomiting headache and dry cough. Patient has some issues with memory due to previous stroke. Hersister takes care of her. On further evaluation found to have right lower lobe infiltrate, patient required 2 L of oxygen. 1.? Right lower lobe community-acquired pneumonia-patient was admitted to [facility], she continues on IV Rocephin and Zithromax.? Prelim sputum culture appears normal respiratory khoi.? Urinary antigens are negative.? SARS-CoV-2 and flu antigen are negative. 07/15: Patient is discharged on cefdinir 300 mg every 48 hourly based on creatinine clearance. Advised to take Ceftin 8 after dialysis on days of dialysis. Patient on Thursday and Thursday. Follow-up senior sql database developer. #2 hypoxia secondary to right lower lobe community-acquired pneumonia: Patient was on 2 L of oxygen currently weaned off. 07/15: Patient is weaned off oxygen. 91% on room air. #3 end-stage renal disease on dialysis-patient states her dialysis days are Thursday, , and Thursday, her dialysis physician is in [place], ? Dr. Sanchez, the senior sql database developer is consulted. 07/15: Patient was dialyzed today. #4 recent fall with contusions of the face scalp and neck small superficial hematoma on forehead.-supportive care is being given, PT and OT are seeing the patient 07/15: Patient had fall. Advised PT and OT. Patient on Eliquis too therefore hold baby aspirin as patient is on Eliquis. #5 coronary artery disease-no acute chest pain.? No acute change.? Continue present medications #6 cerebrovascular disease with previous stroke in 2019 with? vascular dementia-complicates care, medical course, recovery, and prognosis, patient will remain on her present medications. Discharge home with home health care. Discharge medication reconciliation done. Discharge follow-up instructions completed. Discharge process discussed with the patient and all questions wereanswered to patient's satisfaction. Total time spent, exact 35 minutes on discharge meds reconciliation, examination, coordination of care with nurses and ancillary staff, review of imaging and blood test and discussion with the patient on follow-up instructions. Medications at Discharge Home Medications aspirin 81 mg chewable tablet 81 mg PO DAILY@0800 HEART HEALTH 07/15/18 apixaban 5 mg tablet 5 mg PO BID BLOOD THINNER 08/04/18 atorvastatin 80 mg tablet 80 mg PO QHS CHOLESTEROL 08/04/18 torsemide 100 mg tablet 50 mg PO BID diuretic 04/14/19 melatonin 5 mg tablet 5 mg PO HS PRN Sleep 08/03/20 allopurinol 100 mg tablet 100 mg PO DAILY gout 09/20/20 carvedilol 12.5 mg tablet 6.25 mg PO BID blood pressure 09/20/20 hydralazine 100 mg tablet 100 mg PO TID blood pressure 09/20/20 acetaminophen 325 mg tablet (Tylenol) 650 mg PO Q6H PRN PRN Pain 1-10 Or Fever #0 tabs 10/03/20 amlodipine 10 mg tablet 10 mg PO DAILY blood pressure 01/20/21 potassium chloride 10 mEq tablet,extended release(part/cryst) 10 meq PO BID supplement 01/20/21 insulin aspart U-100 100 unit/mL (3 mL) subcutaneous pen (Novolog FlexPen U-100 Insulin aspart) 5 unit subcut BID blood sugar 03/21/21 insulin glargine U-300 conc 300 unit/mL (1.5 mL) subcutaneous pen (Toujeo SoloStar U-300 Insulin) 20 unit subcut BREAKFAST diabetes 03/21/21 cholecalciferol (vitamin D3) 50 mcg (2,000 unit) capsule 50 mcg DAILY Check withprimary doctor 07/12/22 ezetimibe 10 mg tablet 10 mg DAILY Check with primary doctor 07/12/22 nystatin 100,000 unit/gram topical powder (Nyamyc) 1 applic topical BID PRN RASH/YEAST 07/12/22 vitamin B complex-vitamin C-folic acid 0.8 mg tablet (Nephro-Todd) 1 tab DAILY Check with primary doctor 07/12/22 cefdinir 300 mg capsule 300 mg PO Q48H #2 caps 07/15/22 Physical Exam Narrative Seen and examined. Patient on room air. Hypoxia resolved. Cough is better. Advised to continue incentive spirometry and Pep for 1 more week. Since patient fell down face forward and has swelling bruise over forehead. Mild hematoma on forehead. She also has bruise on the knees. Mild pain over left side of abdomen due to fall. She states he smoked for about 1 year in her teenage. Does not have COPD history. Pulse ox 93% on room air. Physical exam General: Alert, Oriented x3, Cooperative HEENT: Atraumatic, PERRLA, EOMI, Normocephalic Oral: Oral mucosa moist. No Gingival or Mucosal Lesions/ Ulcerations Neck: Supple, No JVD, Negative Carotid Bruits Lungs: Air entry diminished in bilateral lung bases. Occasional bibasilar crepitations Cardiovascular: Regular rate, Regular Rhythm, Normal S1, Normal S2, No murmurs Abdomen: Bowel Sounds Present, Soft, Non Tender, Non-Distended : On hemodialysis. No renal angle tenderness. No suprapubic tenderness. Extremities: No edema, Capillary Refill Less than 3 Seconds Skin: No rashes, No breakdown Musculoskeletal: Left upper extremity AV fistula. Thrill present. No Tenderness to Palpation of Joints or Extremities Neurological: Cranial nerves II-XII grossly intact, DTR 2+/4 and Symmetrical, Neuro grossly intact Psych/Mental Status: Flat affect. Dementia. Weight / BMI Weight Weight: 223 lb 8.78 oz Body Mass Index (BMI) 42.2 ABG / Lab / Microbiology Data Result Diagrams: 07/15/22 05:54 07/15/22 05:54 Laboratory: Laboratory Results - last 24 hr 07/14/22 16:57: POC Glucose 127 H 07/14/22 21:44: POC Glucose 167 H 07/15/22 05:54: Sodium 136, Potassium 4.2, Chloride 105, Carbon Dioxide 26.0, BUN 72 H, Creatinine 7.17 H, Estim Creat Clear Calc 6.61, Est GFR (MDRD) Af Amer8 L, Est GFR (MDRD) Non-Af 6 L, BUN/Creatinine Ratio 10.0, Glucose 102, Calcium 7.7 L, Phosphorus 5.4 H, Albumin 2.7 L 07/15/22 05:54: WBC 4.8, RBC 2.64 L, Hgb 8.6 L, Hct 26.7 L, MCV 101.1 H, MCH 32.6 H, MCHC 32.2, RDW Std Deviation 54.9 H, RDW Coeff of [place] 15.1 H, Plt Count 97 L, MPV 13.6 H, Immature Gran % (Auto) 0.400, Neut % (Auto) 69.1, Lymph % (Auto) 13.4 L, [place] % (Auto) 8.1, Eos % (Auto) 8.6 H, Baso % (Auto) 0.4, Absolute Neuts (auto) 3.3, Absolute Lymphs (auto) 0.64 L, Nucleated RBC % 0 07/15/22 06:28: POC Glucose 94 07/15/22 07:45: POC Glucose 94 07/15/22 13:27: POC Glucose 162 H Microbiology: Microbiology 07/13/22 04:07 Sputum, Expectorated/Coughed Gram Stain - Final 07/13/22 04:07 Sputum, Expectorated/Coughed Respiratory Culture - Final Mixed normal respiratory khoi. No Streptococcus pneumoniae, beta-hemolytic Streptococcus or Staphylococcus aureus isolated. 07/13/22 12:35 Urine, Clean Catch Legionella Antigen - Final 07/13/22 12:35 Urine, Clean Catch Streptococcus pneumoniae Antigen (M - Final 07/12/22 13:45 Nasal Secretion SARS-CoV-2 & FLU Antigen (Rapid) - Final D/C Instructions Discharge Diet: 1800 Calorie Control Diet, 2000 mg Sodium Diet and Renal Diet Weight Bearing Status: Weight bearing as tolerated Call your doctor if you observe: Fever of 101 or Higher, Coldness, Increased Pain, Numbness or Tingling, Change in Color, Inability to urinate, Inability to have a bowel movement, Using more than 1 pad per hour, Shortness of breath, Dizziness, Fainting spells, Swelling in the ankles, Chest pain, Prolonged hiccupping, Increased palpitations (irregular heartbeat) and Calf discomfort When: IN 2 WEEKS Meaningful Use Info Meaningful Use Diagnoses (Choose all that apply): None applicable Discharge Plan Admission Admit Date/Time: 07/12/22 15:45 Primary Reason for Your Visit: Fall. Attending Provider: Mahamed Dunn Primary Care Provider: Denisse Sutton NP Consulting Providers: Sanaz Gomez ; Patsy Wyman Discharge Orders/Prescriptions Prescriptions: New cefdinir 300 mg capsule 300 mg PO Q48H Qty: 2 0RF Rx Instructions: Take cefdinir after hemodialysis on days of dialysis. Continued torsemide 100 mg tablet 50 mg PO BID melatonin 5 mg tablet 5 mg PO HS PRN (Reason: Sleep) atorvastatin 80 MG tablet 80 mg PO QHS apixaban 5 MG tablet 5 mg PO BID Rx Instructions: . carvedilol 12.5 mg tablet 6.25 mg PO BID allopurinol 100 mg tablet 100 mg PO DAILY hydralazine 100 mg tablet 100 mg PO TID acetaminophen [Tylenol] 325 mg Tablet 650 mg PO Q6H PRN PRN (Reason: Pain 1-10 Or Fever) Qty: 0 0RF potassium chloride 10 mEq Tablet,Er Particles/Crystals 10 meq PO BID amlodipine 10 MG tablet 10 mg PO DAILY insulin aspart U-100 [Novolog FlexPen U-100 Insulin] 100 unit/mL (3 mL) insulin pen 5 unit SUBCUT BID Label Comments: AT LUNCH AND DINNER. IF BS LESS THAN 80 DO NOT GIVE Toujeo SoloStar U-300 Insulin 300 unit/mL (1.5 mL) insulin pen 20 unit SC BREAKFAST nystatin [Nyamyc] 100,000 unit/gram powder 1 applic topical BID PRN (Reason: RASH/YEAST) Protocol: *Topical Application Instructions APPLICATION INSTRUCTIONS: AFFECTED AREA Nephro-Todd 0.8 mg tablet 1 tab DAILY ezetimibe 10 mg tablet 10 mg DAILY cholecalciferol (vitamin D3) 50 mcg (2,000 unit) capsule 50 mcg DAILY Held aspirin 81 MG tablet,chewable 81 mg PO DAILY@0800 Hold Instructions: Hold baby aspirin as patient is on Eliquis. Referrals / Follow Up: Ketty Granger MD [Med Staff - Consulting] - Within 2 Weeks Tim Patterson MD [Med Staff - Active Staff] - Within 1 Month (For pneumonia. PFT) Denisse Sutton NP, [facility]USH[facility] SEWER-C [Primary Care Provider] - Disposition Disposition (needs filled in before D/C Order can be placed): Home Health Service Charges/Coding Visit Charges Inpatient E&M: 73896 Disch Hosp >30min 07/15/22 1641 <Electronically signed by Mahamed Dunn MD> Cosigner Signature (if applicable): CC: TERESA Sutton; Dr. Mahamed Dunn MD~ Signed [facility] Work Phone: [phone] [facility] July 15, 2022 4:37pm Note Date/Time July 15, 2022 7:[address] [facility] Medical Records Department [address] [place] [id number] Instructions for Home/Discharge Instructions 07/15/22 0909 MR#: [id number] Acct: [id number] Name: ZAYDA DAVIS Rep #:[id number] : 1965 56 From: Mahamed Penn PCP: TERESA Mas Status:ADM I N Discharge Instructions Diet Discharge Diet: 1800 Calorie Control Diet, 2000 mg Sodium Diet and Renal Diet Activity Discharge Activity: Return to Normal Activity Weight Bearing Status: Weight bearing as tolerated Dressing / Incision Call your doctor if you observe: Fever of 101 or Higher, Coldness, Increased Pain, Numbness or Tingling, Change in Color, Inability to urinate, Inability to have a bowel movement, Using more than 1 pad per hour, Shortness of breath, Dizziness, Fainting spells, Swelling in the ankles, Chest pain, Prolonged hiccupping, Increased palpitations (irregular heartbeat) and Calf discomfort Follow Up Care When: IN 2 WEEKS Test Results: Test results from this visit will be discussed in further detail at your follow- up appointment, if applicable. Discharge Plan Admission Admit Date/Time: 07/12/22 15:45 Primary Reason for Your Visit: Fall. Attending Provider: Mahamed Dunn Primary Care Provider: Denisse Sutton CUSH[facility] SEWER Consulting Providers: Sanaz Gomez ; Patsy Wyman Discharge Orders/Prescriptions Prescriptions: New cefdinir 300 mg capsule 300 mg PO Q48H Qty: 2 0RF Rx Instructions: Take cefdinir after hemodialysis on days of dialysis. Continued torsemide 100 mg tablet 50 mg PO BID melatonin 5 mg tablet 5 mg PO HS PRN (Reason: Sleep) atorvastatin 80 MG tablet 80 mg PO QHS apixaban 5 MG tablet 5 mg PO BID Rx Instructions: . carvedilol 12.5 mg tablet 6.25 mg PO BID allopurinol 100 mg tablet 100 mg PO DAILY hydralazine 100 mg tablet 100 mg PO TID acetaminophen [Tylenol] 325 mg Tablet 650 mg PO Q6H PRN PRN (Reason: Pain 1-10 Or Fever) Qty: 0 0RF potassium chloride 10 mEq Tablet,Er Particles/Crystals 10 meq PO BID amlodipine 10 MG tablet 10 mg PO DAILY insulin aspart U-100 [Novolog FlexPen U-100 Insulin] 100 unit/mL (3 mL) insulin pen 5 unit SUBCUT BID Label Comments: AT LUNCH AND DINNER. IF BS LESS THAN 80 DO NOT GIVE Toujeo SoloStar U-300 Insulin 300 unit/mL (1.5 mL) insulin pen 20 unit SC BREAKFAST nystatin [Nyamyc] 100,000 unit/gram powder 1 applic topical BID PRN (Reason: RASH/YEAST) Protocol: *Topical Application Instructions APPLICATION INSTRUCTIONS: AFFECTED AREA Nephro-Todd 0.8 mg tablet 1 tab DAILY ezetimibe 10 mg tablet 10 mg DAILY cholecalciferol (vitamin D3) 50 mcg (2,000 unit) capsule 50 mcg DAILY Held aspirin 81 MG tablet,chewable 81 mg PO DAILY@0800 Hold Instructions: Hold baby aspirin as patient is on Eliquis. Referrals / Follow Up: Ketty Granger MD [Med Staff - Consulting] - Within 2 Weeks Tim Patterson MD [Med Staff - Active Staff] - Within 1 Month (For pneumonia. PFT) Denisse Sutton CUSHION SEWER, [facility] SEWER-C [Primary Care Provider] - Disposition Disposition (needs filled in before D/C Order can be placed): Home Health Service 07/15/22 1637<Electronically signed by Mahamed Dunn MD>Mahamed Dunn MD CC: [facility] SEW[facility]-C Denisse Sutton; Dr. Patsy Wyman DO; Dr. Sanaz Gomez MD ~ Signed [facility] Work Phone: [phone] [facility] July 14, 2022 4:55pm Note Date/Time July 14, 2022 4:5 5pm [facility] Medical Records Department [address] [place] [id number] Progress Note - Hospitalist 07/14/22 1650 MR#: [id number] Acct: [id number] Name: ZAYDA DAVIS Rep #:[id number] : 1965 56 From: Mahamed Penn PCP: TERESA Mas Status:ADM I N Location: [place] [address] Reason for Visit Reason for Visit: Diagnoses Pneumonia, unspecified organism (07/12/22) Subjective Subjective Follow-up for fall, pneumonia. Objective Data Objective Data Vital Signs: Vital Signs Temp Pulse Resp BP Pulse Ox O2 Del Method O2 Flow Rate 98.2 F 57 L 16 121/49 H 93 Room Air 2 07/14/22 13:50 07/14/22 13:57 07/14/22 13:50 07/14/22 13:50 07/14/22 14:01 07/14/22 14:01 07/14/22 12:30 Oxygen Flow Rate (L/min) [ 2 AMBULATING with Oxygen #1] Oxygen Flow Rate (L/min) [At 2 REST with Oxygen] Oxygen Flow Rate (L/min) 2 Oxygen Delivery Method Room Air Weight: 218 lb 11.177 oz Body Mass Index (BMI) 41.3 Intake & Output: Intake and Output for Last 24 Hours 07/12/22 07/13/22 07/14/22 23:59 23:59 23:59 Intake Total 305 / 605 655 / 755 505 / 505 Output Total 200 / 200 Balance 305 / 605 455 / 555 505 / 505 Lab / Micro Data Result Diagrams: 07/13/22 04:38 07/12/22 13:45 Labs: Laboratory Results - last 24 hr 07/13/22 21:42: POC Glucose 188 H 07/14/22 05:52: POC Glucose 112 H 07/14/22 11:27: POC Glucose 196 H Micro: Microbiology 07/13/22 04:07 Sputum, Expectorated/Coughed Gram Stain - Final 07/13/22 04:07 Sputum, Expectorated/Coughed Respiratory Culture - Preliminary Appears to be normal respiratory khoi. Further studies to follow. 07/13/22 12:35 Urine, Clean Catch Legionella Antigen - Final 07/13/22 12:35 Urine, Clean Catch Streptococcus pneumoniae Antigen (M - Final 07/12/22 13:45 Nasal Secretion SARS-CoV-2 & FLU Antigen (Rapid) - Final Physical Exam Narrative Seen and examined. Since patient fell down face forward and has swelling bruise over forehead. Mild hematoma on forehead. She also has bruise on the knees. Mild pain over left side of abdomen due to fall. She states he smoked for about 1 year in her teenage. Does not have COPD history. Pulse ox 93% on room air. Physical exam General: Alert, Oriented x3, Cooperative HEENT: Atraumatic, PERRLA, EOMI, Normocephalic Oral: Oral mucosa moist. No Gingival or Mucosal Lesions/ Ulcerations Neck: Supple, No JVD, Negative Carotid Bruits Lungs: Air entry diminished in bilateral lung bases. Bibasilar fine crepitations. Cardiovascular: Regular rate, Regular Rhythm, Normal S1, Normal S2, No murmurs Abdomen: Bowel Sounds Present, Soft, Non Tender, Non-Distended : On hemodialysis. No renal angle tenderness. No suprapubic tenderness. Extremities: No edema, Capillary Refill Less than 3 Seconds Skin: No rashes, No breakdown Musculoskeletal: Left upper extremity AV fistula. Thrill present. No Tenderness to Palpation of Joints or Extremities Neurological: Cranial nerves II-XII grossly intact, DTR 2+/4 and Symmetrical, Neuro grossly intact Psych/Mental Status: Flat affect. Dementia. Assessment & Plan Assessment/Plan (1) Community acquired pneumonia: PLAN: Plan 1.? Right lower lobe community-acquired pneumonia-patient will be admitted to [facility], she continues on IV Rocephin and Zithromax. Prelim sputum culture appears normal respiratory khoi. Urinary antigens are negative. SARS-CoV-2 and flu antigen are negative. #2 hypoxia secondary to right lower lobe community-acquired pneumonia: Patient was on 2 L of oxygen currently weaned off. #3 end-stage renal disease on dialysis-patient states her dialysis days are Thursday, , and Thursday, her dialysis physician is in [place], Dr. Sanchez, the senior sql database developer is consulted. #4 recent fall with contusions of the face scalp and neck small superficial hematoma on forehead.-supportive care is being given, PT and OT are seeing the patient #5 coronary artery disease-no acute chest pain. No acute change. Continue present medications #6 cerebrovascular disease with previous stroke in 2019 with vascular dementia-complicates care, medical course, recovery, and prognosis, patient will remain on her present medications Microbiology Past 72 Hours 07/13/22 04:07 Sputum, Expectorated/Coughed Gram Stain - Final 07/13/22 04:07 Sputum, Expectorated/Coughed Respiratory Culture - Preliminary Appears to be normal respiratory khoi. Further studies to follow. 07/13/22 12:35 Urine, Clean Catch Legionella Antigen - Final 07/13/22 12:35 Urine, Clean Catch Streptococcus pneumoniae Antigen (M - Final 07/12/22 13:45 Nasal Secretion SARS-CoV-2 & FLU Antigen (Rapid) - Final Laboratory Results 07/13/22 21:42: POC Glucose 188 H 07/14/22 05:52: POC Glucose 112 H 07/14/22 11:27: POC Glucose 196 H Charges/Coding Visit Charges Inpatient E&M: 80110 Subs Hosp L2 07/14/22 2088 <Electronically signed by Mahamed Dunn MD> Cosigner Signature (if applicable): CC: ~ Signed [facility] Work Phone: [phone] 808-862604-16-[address] [facility] July 13, 2022 6:30pm Note Date/Time July 13, 2022 6:3 0pm [facility] Medical Records Department [address] [place] [address] Progress Note - Hospitalist 07/13/22 1827 MR#: [id number] Acct: [id number] Name: ZAYDA DAVIS Rep #:[id number] : 1965 56 From: Patsy Wyman DO PCP: Denisse Sutton, CUSHION SEWER-C Status:ADM I N Location: [place] [address] Reason for Visit Reason for Visit: Diagnoses Pneumonia, unspecified organism (07/12/22) Subjective Subjective Patient was seen and examined today, she is up in a chair and she is not complaining of any shortness of breath. An attempt was made to wean the patienttoday unsuccessfully, she was at 87% on room air. Patient has no complaints of any fever or chills. White blood cell count remains normal. Objective Data Objective Data Vital Signs: Vital Signs Temp Pulse Resp BP Pulse Ox O2 Del Method O2 Flow Rate 98.8 F 65 18 103/64 87 Nasal Cannula 2 07/13/22 14:15 07/13/22 14:15 07/13/22 14:15 07/13/22 14:15 07/13/22 14:15 07/13/22 14:15 07/13/22 14:15 Oxygen Flow Rate (L/min) [ 2 AMBULATING with Oxygen #1] Oxygen Flow Rate (L/min) [At 2 REST with Oxygen] Oxygen Flow Rate (L/min) 2 Oxygen Delivery Method Nasal Cannula Weight: 99.2 kg Body Mass Index (BMI) 41.3 Intake & Output: Intake and Output for Last 24 Hours 07/11/22 07/12/22 07/13/22 23:59 23:59 23:59 Intake Total 305 / 605 655 / 655 Output Total 200 / 200 Balance 305 / 605 455 / 455 Lab / Micro Data Result Diagrams: 07/13/22 04:38 07/12/22 13:45 Labs: Laboratory Results - last 24 hr 07/12/22 23:01: POC Glucose 142 H 07/13/22 04:07: Urine Color Cancelled, Urine Clarity Cancelled, Urine pH Cancelled, Ur Specific [place] Cancelled, U Specif Grav (Refrac) Cancelled, Urine Protein Cancelled, Urine Glucose (UA) Cancelled, Urine Ketones Cancelled, Urine Occult Blood Cancelled, Urine Nitrite Cancelled, Urine Bilirubin Cancelled, Urine Urobilinogen Cancelled, Ur Leukocyte Esterase Cancelled, Urine RBC Cancelled, Urine WBC Cancelled, Ur Squamous Epith Cells Cancelled, Ur TransitionEpith Cell Cancelled, Ur Renal Epithelial Cell Cancelled, Calcium Oxalate Crystal Cancelled, Uric Acid Crystals Cancelled, Triple Phos Crystals Cancelled,Other Crystals Cancelled, Amorphous Sediment Cancelled, Urine Bacteria Cancelled, Hyaline Casts Cancelled, Fine Granular Casts Cancelled, Coarse Granular Casts Cancelled, Waxy Casts Cancelled, RBC Casts Cancelled, WBC Casts Cancelled, Urine Mucus Cancelled, Urine Trichomonas Cancelled, Urine Yeast Cancelled 07/13/22 04:38: WBC 6.3, RBC 2.72 L, Hgb 8.8 L, Hct 28.4 L, MCV 104.4 H, MCH 32.4 H, MCHC 31.0 L, RDW Std Deviation 58.4 H, RDW Coeff of [place] 15.5 H, Plt Count 106 L, MPV 12.8 H, Immature Gran % (Auto) 0.300, Neut % (Auto) 67.9, Lymph % (Auto) 10.4 L, [place] % (Auto) 13.9 H, Eos % (Auto) 7.2 H, Baso % (Auto) 0.3, Absolute Neuts (auto) 4.3, Absolute Lymphs (auto) 0.65 L, Nucleated RBC % 0 07/13/22 06:35: POC Glucose 120 H 07/13/22 07:48: POC Glucose 128 H 07/13/22 11:13: POC Glucose 262 H 07/13/22 12:35: Urine Color Yellow, Urine Clarity Sl. Cloudy, Urine pH 7.0, Ur Specific [place] 1.010, Urine Protein 100 H, Urine Glucose (UA) Normal, Urine Ketones Negative, Urine Occult Blood Negative, Urine Nitrite Negative, Urine Bilirubin 1 H, Urine Urobilinogen Normal, Ur Leukocyte Esterase 25 H, Urine RBC 0 SEEN, Urine WBC 0-5 SEEN, Ur Squamous Epith Cells 0-5 SEEN, Urine Bacteria 1+,Urine Mucus 0 SEEN 07/13/22 16:15: POC Glucose 82 Micro: Microbiology 07/13/22 12:35 Urine, Clean Catch Legionella Antigen - Final 07/13/22 12:35 Urine, Clean Catch Streptococcus pneumoniae Antigen (M - Final 07/13/22 04:07 Sputum, Expectorated/Coughed Gram Stain - Final 07/12/22 13:45 Nasal Secretion SARS-CoV-2 & FLU Antigen (Rapid) - Final Physical Exam Narrative alert Constitutional Narrative: Patient is morbidly obese General Appearance: cooperative, well kempt and well developed Orientation / Consciousness: awake and oriented to person HEENT normocephalic and moist oral mucous membranes HEENT Narrative: There are areas of ecchymosis noted over the patient's face from a previous fallrecently Eyes PERRL, EOMs intact bilaterally and conjunctivae normal Neck supple, no JVD, thyroid normal and no carotid bruits General: trachea midline Resp normal respiratory effort, no retractions, no use of accessory muscles, occasional expiratory rhonchi were noted at the right lung base Cardio regular rate, regular rhythm, S1 normal heart sound, S2 normal heart sound, no murmurs, no rub and no gallops GI normal to inspection, nondistended, normoactive bowel sounds, soft to palpation,non-tender and non-distended Extremity no clubbing, cyanosis or edema Skin no rashes or lesions noted General Skin Exam: no breakdown Neuro oriented x3, CN's II-XII intact bilaterally, moves all extremities, no focal motor deficits and no sensory deficits noted Sensorium / Orientation: awake, alert, oriented to person and oriented to place Speech: speech normal Psych Psych Narrative: Patient is a poor informant, she is able to give some medical information but most of the time states ask my sister, she takes care of me Assessment & Plan Assessment/Plan (1) Community acquired pneumonia: PLAN: Plan 1. Right lower lobe community-acquired pneumonia-patient will be admitted to [facility], she continues on IV Rocephin and Zithromax day #2, aerosol treatments will be administered, labs will be obtained tomorrow morning #2 hypoxia secondary to right lower lobe community-acquired pneumonia-patient ismildly hypoxic, I will attempt to wean oxygen if possible #3 end-stage renal disease on dialysis-patient states her dialysis days are Thursday, , and Thursday, her dialysis physician is in [place], I called Dr. Sanchez (nephrology) and had him consult on the patient, she will be seen tomorrow. #4 recent fall with contusions of the face scalp and neck-supportive care is being given, PT and OT are seeing the patient #5 coronary artery disease-stable at this time, continue present medications #6 cerebrovascular disease with previous stroke in 2019 with cognitive impairment-complicates care, medical course, recovery, and prognosis, patient will remain on her present medications Total clinical time spent by myself addressing patient's medical issues, reviewing all of her data, and collaborating with patient's care team: 36 minutes Charges/Coding Visit Charges Inpatient E&M: 14766 Subs Hosp L2 07/13/22 1830 <Electronically signed by Patsy Wyman DO> Cosigner Signature (if applicable): CC: ~ Signed [facility] Work Phone: [phone] History and physical note Author Dr. Wyman [facility] July 13, 2022 6:23pm Note Date/Time July 12, 2022 6:[address] [facility] Medical Records Department [address] [place] [address] H&P Exam - Hospitalist 07/12/22 1801 MR#: [id number] Acct: [id number] Name: ZAYDA DAVIS Rep #:[id number] : 1965 56 From: Patsy Wyman DO PCP: TERESA Mas Status:ADM I N Location: [address] HPI - General General Date of Admission: 07/12/22 Date of Service: 07/12/22 Chief Complaint: Cough, vomiting, headache HPI Narrative ZAYDA DAVIS, is a 56 F who presents to the emergency room at [facility] for evaluation of vomiting, headache, and dry cough. Complete history was unable to be obtained from the patient due to previous stroke, she keeps saying ask my sister she takes care of me. Work-up in the emergency room included a chest x-ray which showed right lower lobe infiltrate, patient required 2 L of oxygen to maintain her pulse ox above 90%. Patient's white blood cell count was 7.2 today, hemoglobin was 9.2, creatinine was 3.67 and BUN was 23. Patient states that she goes to dialysis Thursday and Saturdays, she maintains she had dialysis today however. She does not know who her senior sql database developer is. Patient will be admitted to [facility] 3, she will be given aerosol treatments and IV Zithromax and Rocephin. Patient will be reevaluated tomorrow. I will have nursing contact her sister to see who the patient's senior sql database developer is. [facility] Medical History Acute renal injury due to circulatory failure Anxiety Asthma Atherosclerosis of coronary artery of [place] heart without angina pectoris Bilateral carotid bruits Cardiology follow-up encounter Chronic heart failure with preserved ejection fraction (HFpEF) COVID-19 (01/20/21) Debility Depression Diabetes Easy bruising ESRD (end stage renal disease) on dialysis Essential hypertension Former smoker Generalized weakness GERD (gastroesophageal reflux disease) Headache History of cholelithiasis History of non-ST elevation myocardial infarction (NSTEMI) (01/20/21) History of renal calculi Hyperlipidemia Hypoxia Inability to walk Insulin dependent diabetes mellitus Ischemic cerebrovascular accident (CVA) (04/2018) Kidney disease Low iron Malignant hypertension Morbid obesity Non-STEMI (non-ST elevated myocardial infarction) (01/20/21) Respiratory insufficiency Type 2 diabetes mellitus without complication Wears glasses Home Medications aspirin 81 mg chewable tablet 81 mg PO DAILY@0800 HEART HEALTH 07/15/18 [History Last Taken 05/27/21] apixaban 5 mg tablet 5 mg PO BID BLOOD THINNER 08/04/18 [History Last Taken 01/19/21] atorvastatin 80 mg tablet 80 mg PO QHS CHOLESTEROL 08/04/18 [History Last Taken 01/19/21] torsemide 100 mg tablet 50 mg PO BID diuretic 04/14/19 [History Last Taken 05/27/21] melatonin 5 mg tablet 5 mg PO HS PRN Sleep 08/03/20 [History Last Taken 01/19/21] allopurinol 100 mg tablet 100 mg PO DAILY gout 09/20/20 [History Last Taken 01/19/21] carvedilol 12.5 mg tablet 6.25 mg PO BID blood pressure 09/20/20 [History Last Taken 05/27/21] hydralazine 100 mg tablet 100 mg PO TID blood pressure 09/20/20 [History Last Taken 05/27/21] acetaminophen 325 mg tablet (Tylenol) 650 mg PO Q6H PRN PRN Pain 1-10 Or Fever #0 tabs 10/03/20 [Rx Last Taken Unknown] amlodipine 10 mg tablet 10 mg PO DAILY blood pressure 01/20/21 [History Last Taken 05/27/21] potassium chloride 10 mEq tablet,extended release(part/cryst) 10 meq PO BID supplement 01/20/21 [History Last Taken 05/27/21] insulin aspart U-100 100 unit/mL (3 mL) subcutaneous pen (Novolog FlexPen U-100 Insulin aspart) 5 unit subcut BID blood sugar 03/21/21 [History Last Taken Unknown] insulin glargine U-300 conc 300 unit/mL (1.5 mL) subcutaneous pen (Toujeo SoloStar U-300 Insulin) 20 unit subcut BREAKFAST diabetes 03/21/21 [History Last Taken Unknown] cholecalciferol (vitamin D3) 50 mcg (2,000 unit) capsule 50 mcg DAILY Check withprimary doctor 07/12/22 [History Last Taken Unknown] ezetimibe 10 mg tablet 10 mg DAILY Check with primary doctor 07/12/22 [History Last Taken Unknown] nystatin 100,000 unit/gram topical powder ([facility]) 1 applic topical BID PRN RASH/YEAST 07/12/22 [History Last Taken Unknown] vitamin B complex-vitamin C-folic acid 0.8 mg tablet (Nephro-Todd) 1 tab DAILY Check with primary doctor 07/12/22 [History Last Taken Unknown] Allergy/AdvReac Type Severity Reaction Status Date / Time No Known Allergies Allergy Verified 06/26/21 08:32 Family History Mother Diabetes Heart disease Hypertension Father Hypertension Heart disease Brother Heart disease Hypertension Sister Heart disease Diabetes Surgical History History of appendectomy History of arteriovenostomy for renal dialysis (~03/2021) History of History of cholecystectomy History of coronary artery stent placement (06/2016) History of left heart catheterization (05/27/21) Social History Smoking Status: Former smoker alcohol intake: never ROS ROS Narrative Review of systems was unobtainable from the patient due to chronic cognitive impairment from a past history of stroke Vital Signs Vital Signs Vital Signs: 07/12/22 12:54 07/12/22 12:58 07/12/22 13:00 Temperature 98.0 F Temperature Source Temporal Pulse Rate 67 67 Respiratory Rate 18 16 Respiratory Effort Normal Respiratory Pattern Normal Blood Pressure 131/48 H Blood Pressure Mean 75 Pulse Ox 92 89 Oxygen Delivery Method Room Air Room Air 07/12/22 14:56 07/12/22 16:01 Temperature 97.5 F L Temperature Source Temporal Pulse Rate 87 61 Respiratory Rate 20 H 18 Respiratory Effort Respiratory Pattern Blood Pressure 154/66 H 134/66 H Blood Pressure Mean 95 88 Pulse Ox 97 94 Oxygen Delivery Method Room Air Room Air Weight Weight: 99.2 kg Body Mass Index (BMI) 41.3 Physical Exam Const alert Constitutional Narrative: Patient is morbidly obese General Appearance: cooperative, well kempt and well developed Orientation / Consciousness: awake and oriented to person HEENT normocephalic and moist oral mucous membranes HEENT Narrative: There are areas of ecchymosis noted over the patient's face from a previous fallrecently Eyes PERRL, EOMs intact bilaterally and conjunctivae normal Neck supple, no JVD, thyroid normal and no carotid bruits General: trachea midline Resp normal respiratory effort, no retractions, no use of accessory muscles and clearto auscultation bilaterally Auscultation: Negative for rales, rhonchi or wheezes Cardio regular rate, regular rhythm, S1 normal heart sound, S2 normal heart sound, no murmurs, no rub and no gallops GI normal to inspection, nondistended, normoactive bowel sounds, soft to palpation,non-tender and non-distended Extremity no clubbing, cyanosis or edema Skin no rashes or lesions noted General Skin Exam: no breakdown Neuro oriented x3, CN's II-XII intact bilaterally, moves all extremities, no focal motor deficits and no sensory deficits noted Sensorium / Orientation: awake, alert, oriented to person and oriented to place Speech: speech normal Psych Psych Narrative: Patient is a poor informant, she is able to give some medical information but most of the time states ask my sister, she takes care of me Results Lab / Micro Data Result Diagrams: 07/13/22 04:38 07/12/22 13:45 Labs: Laboratory Results - last 24 hr 07/12/22 13:45: WBC 7.2, RBC 2.80 L, Hgb 9.2 L, Hct 28.4 L, MCV 101.4 H, MCH 32.9 H, MCHC 32.4, RDW Std Deviation 55.9 H, RDW Coeff of [place] 15.4 H, Plt Count 105 L, MPV 12.2 H, Immature Gran % (Auto) 0.300, Neut % (Auto) 76.5 H, Lymph % (Auto) 7.6 L, [place] % (Auto) 12.2 H, Eos % (Auto) 3.1, Baso % (Auto) 0.3, Absolute Neuts (auto) 5.5, Absolute Lymphs (auto) 0.54 L, Nucleated RBC % 0 07/12/22 13:45: Sodium 139, Potassium 4.1, Chloride 102, Carbon Dioxide 36.0 H, Anion Gap 1 L, BUN 23 H, Creatinine 3.67 H, Estim Creat Clear Calc 12.92, Est GFR (MDRD) Af Amer 16 L, Est GFR (MDRD) Non-Af 14 L, BUN/Creatinine Ratio 6.3 L,Glucose 186 H, Calcium 8.5 07/12/22 13:45: PT 15.2 H, INR 1.2 Micro: Microbiology 07/12/22 13:45 Nasal Secretion SARS-CoV-2 & FLU Antigen (Rapid) - Final ABG Data ABG results: ABG 07/12/22 15:28 Specimen Type SARAH VBG pH 7.49 H VBG pO2 42 H VBG HCO3 33 H VBG Total CO2 34 H VBG O2 Sat (Calc) 81 H VBG Base Excess 9 H POC Mix VBG pCO2 Pt Tmp 43.0 O2 Delivery Device Room Air Radiology Impression Brain CT 07/12/22 13:27 IMPRESSION: Soft tissue swelling along the left fore head. Electronically Signed: Emery Adkins MD at 15:00 EDT , Cervical Spine CT 07/12/22 13:27 IMPRESSION: (NOT LISTED IN ORDER OF SIGNIFICANCE) There is altered curvature of the normal cervical lordosis. This can suggest neck strain. Electronically Signed: Emery Adkins MD at 15:13 EDT , Facial/Sinus 07/12/22 13:27 IMPRESSION: Mild soft tissue swelling along the left forehead. No visible fracture. Electronically Signed: Emery Adkins MD at 15:06 EDT , Chest X-Ray 07/12/22 14:40 IMPRESSION: Right lower lobe infiltrate. Electronically Signed: Emery Adkins MD at 15:02 EDT , Assessment & Plan Assessment/Plan (1) Community acquired pneumonia: PLAN: Plan 1. Right lower lobe community-acquired pneumonia-patient will be admitted to [facility], she was placed on IV Rocephin and Zithromax, aerosol treatments will beadministered, labs will be obtained tomorrow morning #2 hypoxia secondary to right lower lobe community-acquired pneumonia-patient ismildly hypoxic, I will attempt to wean oxygen if possible #3 end-stage renal disease on dialysis-patient states her dialysis days are Thursday, , and Thursday, her dialysis physician is in [place], if patienthas to stay past Thursday of this week in the hospital here, she will need a consultation with nephrology for dialysis on Thursday. #4 recent fall with contusions of the face scalp and neck-supportive care is being given, PT and OT are seeing the patient #5 coronary artery disease-stable at this time, continue present medications #6 cerebrovascular disease with previous stroke in 2019 with cognitive impairment-complicates care, medical course, recovery, and prognosis, patient will remain on her present medications Total clinical time spent by myself addressing patient's medical issues, reviewing all of her data, and collaborating with patient's care team: 75 minutes Charges/Coding Visit Charges Inpatient E&M: 86946 Init Hosp L3 07/13/22 182 <Electronically signed by Patsy Wyman DO> Cosigner Signature (if applicable): CC: TERESA Sutton; Dr. Patsy Wyman DO~ Signed [facility] Work Phone: [phone] 734-643604-15-[address] [facility] July 12, 2022 4:55pm Note Date/Time July 12, 2022 1:4 1pm [facility] Medical Records Department [address] [place] [address] Emergency Department Summary 07/12/22 MR#: [id number] Acct: [id number] Name: ZAYDA DAVIS Rep #:[id number] : 1965 [id number] From: Kamlesh MOORE PCP: TERESA Mas Status:ADM I N Location: [address] HPI <TERESA Connors - Last Filed: 07/12/22 15:47> History of Present Illness Chief Complaint: Fall Narrative Narrative: Patient is a 56-year-old female with history of end-stage renal disease with dialysis with a fistula left arm, patient is on Eliquis, CAD, CVA with residual,CHF who presents to the emergency department for reevaluation after mechanical fall. Patient had a mechanical fall 4 days ago, she fell in the parking lot striking her face on the concrete. Patient was seen at [facility], the patient and the patient's sister were very unhappy with the care that they received. They are unsure if they did a CT scan or not, they states that she was only there for 30 minutes. Over the last 2 days, patient has having more headaches, she is having worsening pain to the left eye, she has also been acting more altered. She is had multiple episodes of nausea and vomiting. Patient is also coughing and having increased shortness of breath, per the sister she is concerned for an infection. PFSH <TERESA Connors - Last Filed: 07/12/22 15:47> PFSH Medical History Acute renal injury due to circulatory failure Anxiety Asthma Atherosclerosis of coronary artery of [place] heart without angina pectoris Bilateral carotid bruits Cardiology follow-up encounter Chronic heart failure with preserved ejection fraction (HFpEF) COVID-19 (01/20/21) Debility Depression Diabetes Easy bruising ESRD (end stage renal disease) on dialysis Essential hypertension Former smoker Generalized weakness GERD (gastroesophageal reflux disease) Headache History of cholelithiasis History of non-ST elevation myocardial infarction (NSTEMI) (01/20/21) History of renal calculi Hyperlipidemia Hypoxia Inability to walk Insulin dependent diabetes mellitus Ischemic cerebrovascular accident (CVA) (04/2018) Kidney disease Low iron Malignant hypertension Morbid obesity Non-STEMI (non-ST elevated myocardial infarction) (01/20/21) Respiratory insufficiency Type 2 diabetes mellitus without complication Wears glasses Home Medications aspirin 81 mg chewable tablet 81 mg PO DAILY@0800 HEART HEALTH 07/15/18 [History Last Taken 05/27/21] apixaban 5 mg tablet 5 mg PO BID BLOOD THINNER 08/04/18 [History Last Taken 01/19/21] atorvastatin 80 mg tablet 80 mg PO QHS CHOLESTEROL 08/04/18 [History Last Taken 01/19/21] torsemide 100 mg tablet 50 mg PO BID diuretic 04/14/19 [History Last Taken 05/27/21] melatonin 5 mg tablet 5 mg PO HS PRN Sleep 08/03/20 [History Last Taken 01/19/21] allopurinol 100 mg tablet 100 mg PO DAILY gout 09/20/20 [History Last Taken 01/19/21] carvedilol 12.5 mg tablet 6.25 mg PO BID blood pressure 09/20/20 [History Last Taken 05/27/21] hydralazine 100 mg tablet 100 mg PO TID blood pressure 09/20/20 [History Last Taken 05/27/21] acetaminophen 325 mg tablet (Tylenol) 650 mg PO Q6H PRN PRN Pain 1-10 Or Fever #0 tabs 10/03/20 [Rx Last Taken Unknown] amlodipine 10 mg tablet 10 mg PO DAILY blood pressure 01/20/21 [History Last Taken 05/27/21] potassium chloride 10 mEq tablet,extended release(part/cryst) 10 meq PO BID supplement 01/20/21 [History Last Taken 05/27/21] insulin aspart U-100 100 unit/mL (3 mL) subcutaneous pen (Novolog FlexPen U-100 Insulin aspart) 5 unit subcut BID blood sugar 03/21/21 [History Last Taken Unknown] insulin glargine U-300 conc 300 unit/mL (1.5 mL) subcutaneous pen (Toujeo SoloStar U-300 Insulin) 20 unit subcut BREAKFAST diabetes 03/21/21 [History Last Taken Unknown] nystatin 100,000 unit/gram topical powder (Nyamyc) 1 applic topical BID PRN RASH/YEAST 07/12/22 [History Last Taken Unknown] Allergy/AdvReac Type Severity Reaction Status Date / Time No Known Allergies Allergy Verified 06/26/21 08:32 Family History Mother Diabetes Heart disease Hypertension Father Hypertension Heart disease Brother Heart disease Hypertension Sister Heart disease Diabetes Surgical History History of appendectomy History of arteriovenostomy for renal dialysis (~03/2021) History of History of cholecystectomy History of coronary artery stent placement (06/2016) History of left heart catheterization (05/27/21) Social History Smoking Status: Former smoker alcohol intake: never ROS <TERESA Connors - Last Filed: 07/12/22 15:47> [facility] ED ROS Narrative Constitutional: Negative for fever, chills, weight loss. Positive for generalized weakness Eyes: Negative for vision loss, vision change, double vision. Positive for lefteye pain ENT: Negative for any sore throat, ear pain, congestion Cardiovascular: Negative for any chest pain, tightness, palpitations Respiratory: Negative for any cough, sputum production, hemoptysis, dyspnea, dyspnea on exertion, orthopnea Gastrointestinal: Negative for any abdominal pain, nausea, vomiting, diarrhea, constipation, blood in stool, blood in vomit : Negative for any urinary frequency, dysuria, retention, blood in urine Muscle skeletal: Negative for any muscle joint pain, stiffness, myalgias, arthralgias, back pain. Positive for bilateral knee pain, neck pain Neurological: Negative for any syncope, numbness or tingling, dizziness. Positive for headache, feeling of out of it Skin: Negative for any rashes, lumps, itching, abrasions, lacerations. Significant ecchymosis around the face Psychiatric: Negative for any depression, anxiety, stress, suicidal ideation, homicidal ideation Hematologic: Negative for any easy bruising, excessive bruising, easy bleeding Allergies: Negative for any eczema, hives, rash EXAM <TERESA Connors - Last Filed: 07/12/22 15:47> Physical Exam Narrative Exam Narrative: Vital signs reviewed. Patient is alert and oriented x4 however patient is somewhat slow to respond andhas difficulty with the timeframe of events. Per the sister, this is residual from the stroke. HEET: Head normocephalic atraumatic, TMs clear bilaterally. Posterior pharynx is clear, moist mucous membranes. Nares clear bilaterally. Patient has significant ecchymosis around bilateral eyes, patient has hematoma to left forehead along with ecchymosis and edema. Patient has significant tenderness along the left inferior orbit. No deformity was felt. Pupils are equal. Negative for any hemotympanum. Patient has bruising throughout the orbital areas. Neck: Supple with no lymphadenopathy or tenderness. No signs of meningismus, negative jolt sign. Cardiac: Regular rate and rhythm no murmurs gallops or rubs, equal peripheral pulses bilaterally. Respiratory: Lungs clear to auscultation bilaterally. No chest tenderness. Abdomen: Soft, nontender, nondistended. No abdominal bruit or pulsatile masses. No hepatosplenomegaly Extremities: No peripheral edema, no signs of gross trauma or deformity. Activefull range of motion of all extremities. Neuro: Cranial nerves II through XII intact, no focal neurological deficits. Skin: Clean dry and intact with no rash, purpura, petechiae, vesicles or pustules. Backs/flank: No CVA tenderness, no midline spinal tenderness, no deformity. Psych: Normal mood and affect. No SI, HI or acute psychosis. Const Vital Signs: 07/12/22 12:54 07/12/22 12:58 07/12/22 13:00 Temperature 98.0 F Temperature Source Temporal Pulse Rate 67 67 Respiratory Rate 18 16 Respiratory Effort Normal Respiratory Pattern Normal Blood Pressure 131/48 H Blood Pressure Mean 75 Pulse Ox 92 89 Oxygen Delivery Method Room Air Room Air 07/12/22 14:56 07/12/22 16:01 Temperature 97.5 F L Temperature Source Temporal Pulse Rate 87 61 Respiratory Rate 20 H 18 Respiratory Effort Respiratory Pattern Blood Pressure 154/66 H 134/66 H Blood Pressure Mean 95 88 Pulse Ox 97 94 Oxygen Delivery Method Room Air Room Air <Dr. Samm Talley MD - Last Filed: 07/12/22 16:54> Physical Exam Const Vital Signs: 07/12/22 12:54 07/12/22 12:58 07/12/22 13:00 Temperature 98.0 F Temperature Source Temporal Pulse Rate 67 67 Respiratory Rate 18 16 Respiratory Effort Normal Respiratory Pattern Normal Blood Pressure 131/48 H Blood Pressure Mean 75 Pulse Ox 92 89 Oxygen Delivery Method Room Air Room Air 07/12/22 14:56 07/12/22 16:01 Temperature 97.5 F L Temperature Source Temporal Pulse Rate 87 61 Respiratory Rate 20 H 18 Respiratory Effort Respiratory Pattern Blood Pressure 154/66 H 134/66 H Blood Pressure Mean 95 88 Pulse Ox 97 94 Oxygen Delivery Method Room Air Room Air MDM <TERESA Connors - Last Filed: 07/12/22 15:47> [facility] Lab Data Labs: Laboratory Results - last 24 hr 07/12/22 07/12/22 07/12/22 13:45 13:45 13:45 WBC 7.2 RBC 2.80 L Hgb 9.2 L Hct 28.4 L MCV 101.4 H MCH 32.9 H MCHC 32.4 RDW Std Deviation 55.9 H RDW Coeff of [place] 15.4 H Plt Count 105 L MPV 12.2 H Immature Gran % (Auto) 0.300 Neut % (Auto) 76.5 H Lymph % (Auto) 7.6 L [place] % (Auto) 12.2 H Eos % (Auto) 3.1 Baso % (Auto) 0.3 Absolute Neuts (auto) 5.5 Absolute Lymphs (auto) 0.54 L Nucleated RBC % 0 PT 15.2 H INR 1.2 Sodium 139 Potassium 4.1 Chloride 102 Carbon Dioxide 36.0 H Anion Gap 1 L BUN 23 H Creatinine 3.67 H Estim Creat Clear Calc 12.92 Est GFR (MDRD) Af Amer 16 L Est GFR (MDRD) Non-Af 14 L BUN/Creatinine Ratio 6.3 L Glucose 186 H Calcium 8.5 ABG Data ABG results: ABG 07/12/22 15:28 Specimen Type SARAH VBG pH 7.49 H VBG pO2 42 H VBG HCO3 33 H VBG Total CO2 34 H VBG O2 Sat (Calc) 81 H VBG Base Excess 9 H POC Mix VBG pCO2 Pt Tmp 43.0 O2 Delivery Device Room Air Radiography Diagnostic Testing: Clinical Impression(s) from Imaging Studies Brain CT 07/12/22 13:27 IMPRESSION: Soft tissue swelling along the left fore head. Electronically Signed: Emery Adkins MD at 15:00 EDT , Cervical Spine CT 07/12/22 13:27 IMPRESSION: (NOT LISTED IN ORDER OF SIGNIFICANCE) There is altered curvature of the normal cervical lordosis. This can suggest neck strain. Electronically Signed: Emery Adkins MD at 15:13 EDT , Facial/Sinus 07/12/22 13:27 IMPRESSION: Mild soft tissue swelling along the left forehead. No visible fracture. Electronically Signed: Emery Adkins MD at 15:06 EDT , Chest X-Ray 07/12/22 14:40 IMPRESSION: Right lower lobe infiltrate. Electronically Signed: Emery Adkins MD at 15:02 EDT , Treatment and Re-Evaluation :: All radiologic examinations were read, reviewed by the emergency department attending. From these reads, a plan of care will be put in place. Patient appears slightly lethargic however patient is in no distress. Patient'spulse oxygenation was 89%, patient was placed on 2 L of oxygen. Per the visitor, patient's been more short of breath over the last 2 days. Patient presents the emergency department for reevaluation after sustaining a head injury 5 days ago. Patient is on Eliquis. Patient did receive basic laboratoryvalues, patient's CBC shows slight anemia with a hemoglobin of 9.2 negative for any leukocytosis. Patient's PT/INR shows a PT of 15.2 with a normal INR. Patient's chemistries show chronic kidney disease on hemodialysis. Patient's CO2 was 36 which is elevated for the patient. This could be secondary to being more short of breath. Patient's BUN is 23 with a creatinine of 3.6, this is baseline for the patient. Patient did receive CT scans of the brain to rule outany delayed bleeding, cervical spine, as well as facial CT. CT scan of the brain and maxillofacial bones showed no acute process, did mention the old stroke, mild soft tissue swelling along the left forehead, no visible fractures. CT scan of the cervical spine was unremarked for any acute fracture. Patient did receive a chest x-ray, this was secondary to the hypoxia as well as increased shortness of breath. This was positive for a right lower lobe infiltrate. This is consistent with the physical examination. Patient will receive a VBG. Negative for any COVID-19 or influenza. She was placed on Zithromax as well as Rocephin. She does not meet any SIRS criteria. She will need to be admitted to the hospital for weakness, hypoxia, community-acquired pneumonia. No evidence suspect any cervical spine fracture, facial fracture, skull fracture, intracranial bleeding. Patient will be admitted to hospital. Patient has hypoxia at 89%. Patient is diagnosed with a right lower lobe pneumonia. There is some discrepancy in charting with 97% on room air, the patient is currently on 2 L. Patient stable for admission. <Dr. Samm Talley MD - Last Filed: 07/12/22 16:54> [facility] Narrative Medical decision making narrative: I have personally performed a face to face assessment of the patient and have reviewed the TOBY Note. I performed a substantive portion of the visit including all aspects of the following. My acevedo findings include: History is remarkable for fall Thursday. She was seen at outside facility. She states she only had an x-ray. She does complain of headache. She denies neck pain. Denies paresthesia, anesthesia medics. She does express being nauseous. She is not her alert normal self according to person accompanying her. She denies ringing or ears or decreased hearing. She denies bleeding from her nose. She denies dental trauma. She denies cardiac or respiratory symptoms. She hasa fistula left arm. Exam is patient has concern for basal skull fracture since she has raccoon sign. There is no hemotympanum. There is no CSF otorrhea or rhinorrhea. There is noseptal deviation hematoma. No TMJ tenderness noted. There is tenderness over the left maxillary region. There is no step-off of the infraorbital rim. Question of hyperesthesia of the infraorbital nerve on the left. Posterior pharynx unremarkable. Trachea is midline. No cervical spine tenderness. She is not alert. She is awake. She is slow to answer. There is no clonus Babinski sign noted. Motor sensor intact. Medical Decision Making because patient is on anticoagulant and has pain is concerning for basal skull fractures CT of the head was obtained as well as facial films. Blood work was obtained assess H&H. Other additions or changes: CT of the face was reviewed and there is mild bilateral maxillary sinus disease and ethmoid disease. There is no facial bone fractures that I was able to appreciate. The C-spine appears unremarkable and the CT of the head reveals an old remote left parietal infarct with no evidence of hemorrhage. Chest x-ray portion reveals an infiltrate right lower lobe. This may explain her hypoxia. Because of her elevated CO2 on basic metabolic panel compared to prior VBG was obtained to assess acid-base status and CO2 since there is concern for retention which may be due to body habitus versus pneumonia. Lab Data Attestation: I reviewed the patient's lab results. Lab results narrative: White count is normal. Hemoglobin is 9.2 and 20.4. Patient has been anemic in the past. PT/INR was unremarkable. Basic metabolic panel is marked for an elevated CO2 compared to baseline. Creatinine is elevated 3.67 which is within her normal range. She is on hemodialysis. More importantly BUN is only slight elevated 23. Glucose is elevated 186. There is no anion gap. Labs: Laboratory Results - last 24 hr 07/12/22 07/12/22 07/12/22 13:45 13:45 13:45 WBC 7.2 RBC 2.80 L Hgb 9.2 L Hct 28.4 L MCV 101.4 H MCH 32.9 H MCHC 32.4 RDW Std Deviation 55.9 H RDW Coeff of [place] 15.4 H Plt Count 105 L MPV 12.2 H Immature Gran % (Auto) 0.300 Neut % (Auto) 76.5 H Lymph % (Auto) 7.6 L [place] % (Auto) 12.2 H Eos % (Auto) 3.1 Baso % (Auto) 0.3 Absolute Neuts (auto) 5.5 Absolute Lymphs (auto) 0.54 L Nucleated RBC % 0 PT 15.2 H INR 1.2 Sodium 139 Potassium 4.1 Chloride 102 Carbon Dioxide 36.0 H Anion Gap 1 L BUN 23 H Creatinine 3.67 H Estim Creat Clear Calc 12.92 Est GFR (MDRD) Af Amer 16 L Est GFR (MDRD) Non-Af 14 L BUN/Creatinine Ratio 6.3 L Glucose 186 H Calcium 8.5 ABG Data ABG results: ABG 07/12/22 15:28 Specimen Type SARAH VBG pH 7.49 H VBG pO2 42 H VBG HCO3 33 H VBG Total CO2 34 H VBG O2 Sat (Calc) 81 H VBG Base Excess 9 H POC Mix VBG pCO2 Pt Tmp 43.0 O2 Delivery Device Room Air Radiography Diagnostic Testing: Clinical Impression(s) from Imaging Studies Brain CT 07/12/22 13:27 IMPRESSION: Soft tissue swelling along the left fore head. Electronically Signed: Emery Adkins MD at 15:00 EDT , Cervical Spine CT 07/12/22 13:27 IMPRESSION: (NOT LISTED IN ORDER OF SIGNIFICANCE) There is altered curvature of the normal cervical lordosis. This can suggest neck strain. Electronically Signed: Emery Adkins MD at 15:13 EDT , Facial/Sinus 07/12/22 13:27 IMPRESSION: Mild soft tissue swelling along the left forehead. No visible fracture. Electronically Signed: Emery Adkins MD at 15:06 EDT , Chest X-Ray 07/12/22 14:40 IMPRESSION: Right lower lobe infiltrate. Electronically Signed: Emery Adkins MD at 15:02 EDT , EKG Initial EKG: Attestation: I personally reviewed and interpreted this EKG as follows: Interpretation: Sinus Rhythm (Sinus rhythm rate of 65 with first-degree AVblock. ID interval is 204 ms. Cures duration 86 ms. QT duration 434 ms. There is evidence of low voltage. Grover is normal.) Discharge Plan Dx/Rx/DC Orders Clinical Impression: Community acquired pneumonia, Hypoxia, Closed head injury, Concussion, History of coronary artery stent placement, Hyperlipidemia, ESRD (end stage renal disease) on dialysis, Hypertension, History of CVA (cerebrovascular accident), Contusion of face, scalp and neck Disposition Disposition: Acute Care Hospital [facility] What to do if you have Problems For any increased pain, shortness of breath, bleeding, nausea or vomiting, chestpain, or any unexpected problems, contact your Primary Care Provider. Call [facility] ([phone]) or report to the closest Emergency Room. Call 911 if necessary. 07/12/22 1547 <Electronically signed by Kamlesh OMORE> Cosigner Signature (if applicable): 07/12/221654 <Electronically signed by Cesar REYES> CC: TERESA Sutton ~ Signed [facility] Work Phone: [phone] 115-862204-15-[address] [facility] July 12, 2022 4:55pm Note Date/Time July 12, 2022 1:4 1pm [facility] Medical Records Department [address] [place] [address] Emergency Department Summary 07/12/22 MR#: [id number] Acct: [id number] Name: ZAYDA DAVIS Rep #:[id number] : 1965 56 From: Kamlesh MOORE PCP: TERESA Mas Status:ADM I N Location: [address] <TERESA Connors - Last Filed: 07/12/22 15:47> History of Present Illness Chief Complaint: Fall Narrative Narrative: Patient is a 56-year-old female with history of end-stage renal disease with dialysis with a fistula left arm, patient is on Eliquis, CAD, CVA with residual,CHF who presents to the emergency department for reevaluation after mechanical fall. Patient had a mechanical fall 4 days ago, she fell in the parking lot striking her face on the concrete. Patient was seen at [facility], the patient and the patient's sister were very unhappy with the care that they received. They are unsure if they did a CT scan or not, they states that she was only there for 30 minutes. Over the last 2 days, patient has having more headaches, she is having worsening pain to the left eye, she has also been acting more altered. She is had multiple episodes of nausea and vomiting. Patient is also coughing and having increased shortness of breath, per the sister she is concerned for an infection. [facility] <TERESA Connors - Last Filed: 07/12/22 15:47> [facility] Medical History Acute renal injury due to circulatory failure Anxiety Asthma Atherosclerosis of coronary artery of [place] heart without angina pectoris Bilateral carotid bruits Cardiology follow-up encounter Chronic heart failure with preserved ejection fraction (HFpEF) COVID-19 (01/20/21) Debility Depression Diabetes Easy bruising ESRD (end stage renal disease) on dialysis Essential hypertension Former smoker Generalized weakness GERD (gastroesophageal reflux disease) Headache History of cholelithiasis History of non-ST elevation myocardial infarction (NSTEMI) (01/20/21) History of renal calculi Hyperlipidemia Hypoxia Inability to walk Insulin dependent diabetes mellitus Ischemic cerebrovascular accident (CVA) (04/2018) Kidney disease Low iron Malignant hypertension Morbid obesity Non-STEMI (non-ST elevated myocardial infarction) (01/20/21) Respiratory insufficiency Type 2 diabetes mellitus without complication Wears glasses Home Medications aspirin 81 mg chewable tablet 81 mg PO DAILY@0800 HEART HEALTH 07/15/18 [History Last Taken 05/27/21] apixaban 5 mg tablet 5 mg PO BID BLOOD THINNER 08/04/18 [History Last Taken 01/19/21] atorvastatin 80 mg tablet 80 mg PO QHS CHOLESTEROL 08/04/18 [History Last Taken 01/19/21] torsemide 100 mg tablet 50 mg PO BID diuretic 04/14/19 [History Last Taken 05/27/21] melatonin 5 mg tablet 5 mg PO HS PRN Sleep 08/03/20 [History Last Taken 01/19/21] allopurinol 100 mg tablet 100 mg PO DAILY gout 09/20/20 [History Last Taken 01/19/21] carvedilol 12.5 mg tablet 6.25 mg PO BID blood pressure 09/20/20 [History Last Taken 05/27/21] hydralazine 100 mg tablet 100 mg PO TID blood pressure 09/20/20 [History Last Taken 05/27/21] acetaminophen 325 mg tablet (Tylenol) 650 mg PO Q6H PRN PRN Pain 1-10 Or Fever #0 tabs 10/03/20 [Rx Last Taken Unknown] amlodipine 10 mg tablet 10 mg PO DAILY blood pressure 01/20/21 [History Last Taken 05/27/21] potassium chloride 10 mEq tablet,extended release(part/cryst) 10 meq PO BID supplement 01/20/21 [History Last Taken 05/27/21] insulin aspart U-100 100 unit/mL (3 mL) subcutaneous pen (Novolog FlexPen U-100 Insulin aspart) 5 unit subcut BID blood sugar 03/21/21 [History Last Taken Unknown] insulin glargine U-300 conc 300 unit/mL (1.5 mL) subcutaneous pen (Toujeo SoloStar U-300 Insulin) 20 unit subcut BREAKFAST diabetes 03/21/21 [History Last Taken Unknown] nystatin 100,000 unit/gram topical powder (Nyamyc) 1 applic topical BID PRN RASH/YEAST 07/12/22 [History Last Taken Unknown] Allergy/AdvReac Type Severity Reaction Status Date / Time No Known Allergies Allergy Verified 06/26/21 08:32 Family History Mother Diabetes Heart disease Hypertension Father Hypertension Heart disease Brother Heart disease Hypertension Sister Heart disease Diabetes Surgical History History of appendectomy History of arteriovenostomy for renal dialysis (~03/2021) History of History of cholecystectomy History of coronary artery stent placement (06/2016) History of left heart catheterization (05/27/21) Social History Smoking Status: Former smoker alcohol intake: never ROS <TERESA Connors - Last Filed: 07/12/22 15:47> ROS ED ROS Narrative Constitutional: Negative for fever, chills, weight loss. Positive for generalized weakness Eyes: Negative for vision loss, vision change, double vision. Positive for lefteye pain ENT: Negative for any sore throat, ear pain, congestion Cardiovascular: Negative for any chest pain, tightness, palpitations Respiratory: Negative for any cough, sputum production, hemoptysis, dyspnea, dyspnea on exertion, orthopnea Gastrointestinal: Negative for any abdominal pain, nausea, vomiting, diarrhea, constipation, blood in stool, blood in vomit : Negative for any urinary frequency, dysuria, retention, blood in urine Muscle skeletal: Negative for any muscle joint pain, stiffness, myalgias, arthralgias, back pain. Positive for bilateral knee pain, neck pain Neurological: Negative for any syncope, numbness or tingling, dizziness. Positive for headache, feeling of out of it Skin: Negative for any rashes, lumps, itching, abrasions, lacerations. Significant ecchymosis around the face Psychiatric: Negative for any depression, anxiety, stress, suicidal ideation, homicidal ideation Hematologic: Negative for any easy bruising, excessive bruising, easy bleeding Allergies: Negative for any eczema, hives, rash EXAM <TERESA Connors - Last Filed: 07/12/22 15:47> Physical Exam Narrative Exam Narrative: Vital signs reviewed. Patient is alert and oriented x4 however patient is somewhat slow to respond andhas difficulty with the timeframe of events. Per the sister, this is residual from the stroke. HEET: Head normocephalic atraumatic, TMs clear bilaterally. Posterior pharynx is clear, moist mucous membranes. Nares clear bilaterally. Patient has significant ecchymosis around bilateral eyes, patient has hematoma to left forehead along with ecchymosis and edema. Patient has significant tenderness along the left inferior orbit. No deformity was felt. Pupils are equal. Negative for any hemotympanum. Patient has bruising throughout the orbital areas. Neck: Supple with no lymphadenopathy or tenderness. No signs of meningismus, negative jolt sign. Cardiac: Regular rate and rhythm no murmurs gallops or rubs, equal peripheral pulses bilaterally. Respiratory: Lungs clear to auscultation bilaterally. No chest tenderness. Abdomen: Soft, nontender, nondistended. No abdominal bruit or pulsatile masses. No hepatosplenomegaly Extremities: No peripheral edema, no signs of gross trauma or deformity. Activefull range of motion of all extremities. Neuro: Cranial nerves II through XII intact, no focal neurological deficits. Skin: Clean dry and intact with no rash, purpura, petechiae, vesicles or pustules. Backs/flank: No CVA tenderness, no midline spinal tenderness, no deformity. Psych: Normal mood and affect. No SI, HI or acute psychosis. Const Vital Signs: 07/12/22 12:54 07/12/22 12:58 07/12/22 13:00 Temperature 98.0 F Temperature Source Temporal Pulse Rate 67 67 Respiratory Rate 18 16 Respiratory Effort Normal Respiratory Pattern Normal Blood Pressure 131/48 H Blood Pressure Mean 75 Pulse Ox 92 89 Oxygen Delivery Method Room Air Room Air 07/12/22 14:56 07/12/22 16:01 Temperature 97.5 F L Temperature Source Temporal Pulse Rate 87 61 Respiratory Rate 20 H 18 Respiratory Effort Respiratory Pattern Blood Pressure 154/66 H 134/66 H Blood Pressure Mean 95 88 Pulse Ox 97 94 Oxygen Delivery Method Room Air Room Air <Dr. Samm Talley MD - Last Filed: 07/12/22 16:54> Physical Exam Const Vital Signs: 07/12/22 12:54 07/12/22 12:58 07/12/22 13:00 Temperature 98.0 F Temperature Source Temporal Pulse Rate 67 67 Respiratory Rate 18 16 Respiratory Effort Normal Respiratory Pattern Normal Blood Pressure 131/48 H Blood Pressure Mean 75 Pulse Ox 92 89 Oxygen Delivery Method Room Air Room Air 07/12/22 14:56 07/12/22 16:01 Temperature 97.5 F L Temperature Source Temporal Pulse Rate 87 61 Respiratory Rate 20 H 18 Respiratory Effort Respiratory Pattern Blood Pressure 154/66 H 134/66 H Blood Pressure Mean 95 88 Pulse Ox 97 94 Oxygen Delivery Method Room Air Room Air MDM <TERESA Connors - Last Filed: 07/12/22 15:47> MDM Lab Data Labs: Laboratory Results - last 24 hr 07/12/22 07/12/22 07/12/22 13:45 13:45 13:45 WBC 7.2 RBC 2.80 L Hgb 9.2 L Hct 28.4 L MCV 101.4 H MCH 32.9 H MCHC 32.4 RDW Std Deviation 55.9 H RDW Coeff of [place] 15.4 H Plt Count 105 L MPV 12.2 H Immature Gran % (Auto) 0.300 Neut % (Auto) 76.5 H Lymph % (Auto) 7.6 L [place] % (Auto) 12.2 H Eos % (Auto) 3.1 Baso % (Auto) 0.3 Absolute Neuts (auto) 5.5 Absolute Lymphs (auto) 0.54 L Nucleated RBC % 0 PT 15.2 H INR 1.2 Sodium 139 Potassium 4.1 Chloride 102 Carbon Dioxide 36.0 H Anion Gap 1 L BUN 23 H Creatinine 3.67 H Estim Creat Clear Calc 12.92 Est GFR (MDRD) Af Amer 16 L Est GFR (MDRD) Non-Af 14 L BUN/Creatinine Ratio 6.3 L Glucose 186 H Calcium 8.5 ABG Data ABG results: ABG 07/12/22 15:28 Specimen Type SARAH VBG pH 7.49 H VBG pO2 42 H VBG HCO3 33 H VBG Total CO2 34 H VBG O2 Sat (Calc) 81 H VBG Base Excess 9 H POC Mix VBG pCO2 Pt Tmp 43.0 O2 Delivery Device Room Air Radiography Diagnostic Testing: Clinical Impression(s) from Imaging Studies Brain CT 07/12/22 13:27 IMPRESSION: Soft tissue swelling along the left fore head. Electronically Signed: Emery Adkins MD at 15:00 EDT , Cervical Spine CT 07/12/22 13:27 IMPRESSION: (NOT LISTED IN ORDER OF SIGNIFICANCE) There is altered curvature of the normal cervical lordosis. This can suggest neck strain. Electronically Signed: Emery Adkins MD at 15:13 EDT , Facial/Sinus 07/12/22 13:27 IMPRESSION: Mild soft tissue swelling along the left forehead. No visible fracture. Electronically Signed: Emery Adkins MD at 15:06 EDT , Chest X-Ray 07/12/22 14:40 IMPRESSION: Right lower lobe infiltrate. Electronically Signed: Emery Adkins MD at 15:02 EDT , Treatment and Re-Evaluation :: All radiologic examinations were read, reviewed by the emergency department attending. From these reads, a plan of care will be put in place. Patient appears slightly lethargic however patient is in no distress. Patient'spulse oxygenation was 89%, patient was placed on 2 L of oxygen. Per the visitor, patient's been more short of breath over the last 2 days. Patient presents the emergency department for reevaluation after sustaining a head injury 5 days ago. Patient is on Eliquis. Patient did receive basic laboratoryvalues, patient's CBC shows slight anemia with a hemoglobin of 9.2 negative for any leukocytosis. Patient's PT/INR shows a PT of 15.2 with a normal INR. Patient's chemistries show chronic kidney disease on hemodialysis. Patient's CO2 was 36 which is elevated for the patient. This could be secondary to being more short of breath. Patient's BUN is 23 with a creatinine of 3.6, this is baseline for the patient. Patient did receive CT scans of the brain to rule outany delayed bleeding, cervical spine, as well as facial CT. CT scan of the brain and maxillofacial bones showed no acute process, did mention the old stroke, mild soft tissue swelling along the left forehead, no visible fractures. CT scan of the cervical spine was unremarked for any acute fracture. Patient did receive a chest x-ray, this was secondary to the hypoxia as well as increased shortness of breath. This was positive for a right lower lobe infiltrate. This is consistent with the physical examination. Patient will receive a VBG. Negative for any COVID-19 or influenza. She was placed on Zithromax as well as Rocephin. She does not meet any SIRS criteria. She will need to be admitted to the hospital for weakness, hypoxia, community-acquired pneumonia. No evidence suspect any cervical spine fracture, facial fracture, skull fracture, intracranial bleeding. Patient will be admitted to hospital. Patient has hypoxia at 89%. Patient is diagnosed with a right lower lobe pneumonia. There is some discrepancy in charting with 97% on room air, the patient is currently on 2 L. Patient stable for admission. <Dr. Samm Talley MD - Last Filed: 07/12/22 16:54> [facility] Narrative Medical decision making narrative: I have personally performed a face to face assessment of the patient and have reviewed the TOBY Note. I performed a substantive portion of the visit including all aspects of the following. My acevedo findings include: History is remarkable for fall Thursday. She was seen at outside facility. She states she only had an x-ray. She does complain of headache. She denies neck pain. Denies paresthesia, anesthesia medics. She does express being nauseous. She is not her alert normal self according to person accompanying her. She denies ringing or ears or decreased hearing. She denies bleeding from her nose. She denies dental trauma. She denies cardiac or respiratory symptoms. She hasa fistula left arm. Exam is patient has concern for basal skull fracture since she has raccoon sign. There is no hemotympanum. There is no CSF otorrhea or rhinorrhea. There is noseptal deviation hematoma. No TMJ tenderness noted. There is tenderness over the left maxillary region. There is no step-off of the infraorbital rim. Question of hyperesthesia of the infraorbital nerve on the left. Posterior pharynx unremarkable. Trachea is midline. No cervical spine tenderness. She is not alert. She is awake. She is slow to answer. There is no clonus Babinski sign noted. Motor sensor intact. Medical Decision Making because patient is on anticoagulant and has pain is concerning for basal skull fractures CT of the head was obtained as well as facial films. Blood work was obtained assess H&H. Other additions or changes: CT of the face was reviewed and there is mild bilateral maxillary sinus disease and ethmoid disease. There is no facial bone fractures that I was able to appreciate. The C-spine appears unremarkable and the CT of the head reveals an old remote left parietal infarct with no evidence of hemorrhage. Chest x-ray portion reveals an infiltrate right lower lobe. This may explain her hypoxia. Because of her elevated CO2 on basic metabolic panel compared to prior VBG was obtained to assess acid-base status and CO2 since there is concern for retention which may be due to body habitus versus pneumonia. Lab Data Attestation: I reviewed the patient's lab results. Lab results narrative: White count is normal. Hemoglobin is 9.2 and 20.4. Patient has been anemic in the past. PT/INR was unremarkable. Basic metabolic panel is marked for an elevated CO2 compared to baseline. Creatinine is elevated 3.67 which is within her normal range. She is on hemodialysis. More importantly BUN is only slight elevated 23. Glucose is elevated 186. There is no anion gap. Labs: Laboratory Results - last 24 hr 07/12/22 07/12/22 07/12/22 13:45 13:45 13:45 WBC 7.2 RBC 2.80 L Hgb 9.2 L Hct 28.4 L MCV 101.4 H MCH 32.9 H MCHC 32.4 RDW Std Deviation 55.9 H RDW Coeff of [place] 15.4 H Plt Count 105 L MPV 12.2 H Immature Gran % (Auto) 0.300 Neut % (Auto) 76.5 H Lymph % (Auto) 7.6 L [place] % (Auto) 12.2 H Eos % (Auto) 3.1 Baso % (Auto) 0.3 Absolute Neuts (auto) 5.5 Absolute Lymphs (auto) 0.54 L Nucleated RBC % 0 PT 15.2 H INR 1.2 Sodium 139 Potassium 4.1 Chloride 102 Carbon Dioxide 36.0 H Anion Gap 1 L BUN 23 H Creatinine 3.67 H Estim Creat Clear Calc 12.92 Est GFR (MDRD) Af Amer 16 L Est GFR (MDRD) Non-Af 14 L BUN/Creatinine Ratio 6.3 L Glucose 186 H Calcium 8.5 ABG Data ABG results: ABG 07/12/22 15:28 Specimen Type SARAH VBG pH 7.49 H VBG pO2 42 H VBG HCO3 33 H VBG Total CO2 34 H VBG O2 Sat (Calc) 81 H VBG Base Excess 9 H POC Mix VBG pCO2 Pt Tmp 43.0 O2 Delivery Device Room Air Radiography Diagnostic Testing: Clinical Impression(s) from Imaging Studies Brain CT 07/12/22 13:27 IMPRESSION: Soft tissue swelling along the left fore head. Electronically Signed: Emery Adkins MD at 15:00 EDT , Cervical Spine CT 07/12/22 13:27 IMPRESSION: (NOT LISTED IN ORDER OF SIGNIFICANCE) There is altered curvature of the normal cervical lordosis. This can suggest neck strain. Electronically Signed: Emery Adkins MD at 15:13 EDT , Facial/Sinus 07/12/22 13:27 IMPRESSION: Mild soft tissue swelling along the left forehead. No visible fracture. Electronically Signed: Emery Adkins MD at 15:06 EDT , Chest X-Ray 07/12/22 14:40 IMPRESSION: Right lower lobe infiltrate. Electronically Signed: Emery Adkins MD at 15:02 EDT , EKG Initial EKG: Attestation: I personally reviewed and interpreted this EKG as follows: Interpretation: Sinus Rhythm (Sinus rhythm rate of 65 with first-degree AVblock. ID interval is 204 ms. Cures duration 86 ms. QT duration 434 ms. There is evidence of low voltage. Grover is normal.) Discharge Plan Dx/Rx/DC Orders Clinical Impression: Community acquired pneumonia, Hypoxia, Closed head injury, Concussion, History of coronary artery stent placement, Hyperlipidemia, ESRD (end stage renal disease) on dialysis, Hypertension, History of CVA (cerebrovascular accident), Contusion of face, scalp and neck Disposition Disposition: Acute Care Hospital [facility] What to do if you have Problems For any increased pain, shortness of breath, bleeding, nausea or vomiting, chestpain, or any unexpected problems, contact your Primary Care Provider. Call [facility] ([phone]) or report to the closest Emergency Room. Call 911 if necessary. 07/12/22 1547 <Electronically signed by Kamlesh MOORE> Cosigner Signature (if applicable): 07/12/22 1655 <Electronically signed by Cesar REYES> CC: TERESA Sutton ~ Signed [facility] Work Phone: [phone] Hospital Discharge instructions Patient Education 07/08/2022 17:13:08 Abrasions Abrasions Abrasions are skin scrapes. Their treatment depends on how large and deep the abrasion is. Home care You may be prescribed an antibiotic cream or ointment to apply to the wound. This helps prevent infection. Follow instructions when using this medicine. General care To care for the abrasion, do the following each day for as long as directed by your healthcare provider. oIf you were given a bandage, change it once a day. If your bandage sticks to the wound, soak it inwarm water until it loosens. oWash the area with soap and warm water. You may do this in a sink or under a tub faucet or shower.Rinse off the soap. Then pat the area dry with a clean towel. oIf antibiotic ointment or cream was prescribed, reapply it to the wound as directed. Cover the wound with a fresh nonstick bandage. If the bandage becomes wet or dirty, change it as soon as possible. oSome antibiotic ointments or cream can cause an allergic reaction or dermatitis. This may cause redness, itching and or hives. If this occurs, stop using the ointment immediately and wash off any remaining ointment. You may need to take some allergy medicine to relieve symptoms. You may use acetaminophen or ibuprofen to control pain unless another pain medicine was prescribed.Talk with your healthcare provider before using these medicines if you have chronic liver or kidneydisease or ever had a stomach ulcer or GI bleeding. Don t use ibuprofen in children younger than six months old. Most skin wounds heal within 10 days. But an infection may occur even with treatment. So it s important to watch the wound for signs of infection as listed below. Follow-up care Follow up with your healthcare provider, or as advised. When to seek medical advice Call your healthcare provider right away if any of these occur: Fever of 100.4 F (38 C) or higher, or as directed by your healthcare provider Increasing pain, redness, swelling, or drainage from the wound Bleeding from the wound that does not stop after a few minutes of steady, firm pressure Decreased ability to move any body part near the wound [id number] [employer]. [address] [place] [address]. All rights reserved. This information is not intended as a substitute for professional medical care. Always follow yourhealthcare professional's instructions. 07/08/2022 17:13:02 Lower Extremity Contusion Lower Extremity Contusion You have a contusion (bruise) of a lower extremity (leg, knee, ankle, foot, or toe). Symptoms include pain, swelling, and skin discoloration. No bones are broken. This injury may take from a few daysto a few weeks to heal. During that time, the bruise may change from reddish in color, to purple-blue, to green- yellow, to yellow-brown. Home care Unless another medicine was prescribed, you can take acetaminophen, ibuprofen, or naproxen to control pain. (If you have chronic liver or kidney disease or ever had a stomach ulcer or gastrointestinal bleeding, talk with your doctor before using these medicines.) Elevate the injured area to reduce pain and swelling. As much as possible, sit or lie down with theinjured area raised about the level of your heart. This is especially important during the first 48hours. Ice the injured area to help reduce pain and swelling. Wrap a cold source (ice pack or ice cubes laxmi plastic bag) in a thin towel. Apply to the bruised area for 20 minutes every 1 to 2 hours the first day. Continue this 3 to 4 times a day until the pain and swelling goes away. If crutches have been advised, do not bear full weight on the injured leg until you can do so without pain. You may return to sports when you are able to put full weight and impact on the injured legwithout pain. Follow up Follow up with your healthcare provider or our staff as advised. Call if you are not improving within the next 1 to 2 weeks. When to seek medical advice Call your healthcare provider right away if any of these occur: Increased pain or swelling Foot or toes become cold, blue, numb or tingly Signs of infection: Warmth, drainage, or increased redness or pain around the injury Inability to move the injured area , or any joints below the injured area. Frequent bruising for unknown reasons [id number] [employer]. [address] [place] [address]. All rights reserved. This information is not intended as a substitute for professional medical care. Always follow yourhealthcare professional's instructions. 07/08/2022 17:12:43 Head Injury (Adult) Head Injury (Adult) You have a head injury. It does not appear serious at this time. But symptoms of a more serious problem, such as a mild brain injury (concussion) or bruising or bleeding in the brain, may appear later. For this reason, you or someone caring for you will need to watch for the symptoms listed below. Once you re home, also be sure to follow any care instructions you re given. Home care Watch for the following symptoms Seek emergency medical care if you have any of these symptoms over the next hours to days: Headache Nausea or vomiting Dizziness Sensitivity to light or noise Unusual sleepiness or grogginess Trouble falling asleep Personality changes Vision changes Memory loss Confusion Trouble walking or clumsiness Loss of consciousness (even for a short time) Inability to be awakened Stiff neck Weakness or numbness in any part of the body Seizures General care If you were prescribed medicines for pain, use them as directed. Note: Don t take other medicines for pain without talking to your provider first. To help reduce swelling and pain, apply a cold source to the injured area for up to 20 minutes at atime. Do this as often as directed. Use a cold pack or bag of ice wrapped in a thin towel. Never apply a cold source directly to the skin. If you have cuts or scrapes as a result of your head injury, care for them as directed. For the next 24 hours (or longer, if instructed): oDon t drink alcohol or use sedatives or other medicines that make you sleepy. oDon t drive or operate machinery. oDon t do anything strenuous, such as heavy lifting or straining. oLimit tasks that require concentration. This includes reading, using a smartphone or computer, watching TV, and playing video games. oDon t return to sports or other activities that could result in another head injury. Follow-up care Follow up with your healthcare provider, or as directed. If imaging tests were done, they will be reviewed by a doctor. You will be told the results and any new findings that may affect your care. When to seek medical advice Call your healthcare provider right away if any of these occur: Pain doesn t get better or worsens New or increased swelling or bruising Fever of 100.4 F (38 C) or higher, or as directed by your provider Increased redness, warmth, drainage, or bleeding from the injured area Fluid drainage or bleeding from the nose or ears Any depression or bony abnormality in the injured area Persistent confusion or lethargy Bruising behind the ears or bruising around the eyes [phone] [employer]. [address] [place] [address], [place] [address]. All rights reserved. This information is not intended as a substitute for professional medical care. Always follow yourhealthcare professional's instructions. 07/08/2022 17:12:35 Fall, Mechanical Mechanical Fall You have had a fall today. It appears that the cause is what is called mechanical. That means that you slipped, tripped, or lost your balance. If your fall had been because of fainting or a seizure, you might need other tests. It is normal to feel sore and tight in your muscles and back the next day, and not just the musclesyou injured at first. Remember, all the parts of your body are connected, so while initially one area hurts, the next day another may hurt. Also, when you injure yourself, it causes inflammation, which then causes the muscles to tighten up and hurt more. After the initial worsening, it should gradually improve over the next few days. Do report more severe pain. Even without a definite head injury, you can still get a concussion from your head suddenly jerkingforward, backward, or sideways when falling. Concussions and even bleeding can still happen, especially if you have had a recent injury or take blood thinner medicine. It is not unusual to have a mild headache and feel tired and even nauseous or dizzy. Home care Rest today and go back to your normal activities when you are feeling back to normal. If you were injured during the fall, follow the advice from your healthcare provider regarding careof your injury. At first, do not try to stretch out the sore spots. If there is a strain, stretching may make it worse. Massage may help relax the muscles without stretching them. You can use an ice pack or cold compress on and off to the sore spots 10 to 20 minutes at a time, as often as you feel comfortable. This may help reduce the inflammation, swelling and pain. If you have any scrapes or abrasions, they usually heal within 10 days. It is important to keep theabrasions clean while they initially start to heal. However, an infection may happen even with proper care, so watch for early signs of infection (such as warmth, redness, or swelling). Medicines Talk to your healthcare provider before taking new medicines, especially if you have other medical problems or are taking other medicines. If you need anything for pain, you can take acetaminophen or ibuprofen, unless you were given a different pain medicine to use. Talk with your healthcare provider before using these medicines if you have chronic liver or kidney disease, or ever had a stomach ulcer or gastrointestinal bleeding, or are taking blood thinner medicines. Be careful if you are given prescription pain medicines, narcotics, or medicine for muscle spasm. They can make you sleepy and dizzy, and can affect your coordination, reflexes, and judgment. Do not drive or do work where you can injure yourself when taking them. Fall prevention Fix, remove, or replace anything that caused your fall. Make your home safe by keeping walkways clear of objects you may trip over. Use nonslip pads under rugs. Don't use small area rugs or throw rugs. Don't walk in poorly lit areas. Don't stand on chairs or wobbly ladders. Use caution when reaching overhead or looking upward. This position can cause a loss of balance. Be sure your shoes fit properly, have nonslip bottoms and are in good condition. Be cautious when going up and down curbs, and walking on uneven sidewalks. If your balance is poor, consider using a cane or walker. Stay as active as you can. Balance, flexibility, strength, and endurance all come from exercise. They all play a role in preventing falls. If you have pets, know where they are before you stand up or walk so you don't trip over them. Limit alcohol intake. Alcohol can cause balance problems and increase the risk of falls. Use night lights. Have your eyes tested to be sure you are seeing well, even if you already wear glasses. Follow-up Follow up with your healthcare provider, or as advised. If X-rays or CT scans were done, you will be notified if there is a change in the reading, especially if it affects treatment. Call 911 Call 911 if any of these happen: Trouble breathing Confused or difficulty arousing Fainting or loss of consciousness Rapid or very slow heart rate Seizure Difficulty with speech or vision, weakness of an arm or leg Difficulty walking or talking, loss of balance, numbness or weakness in one side of your body, or facial droop When to seek medical advice Call your healthcare provider right away if any of these happen: Repeated mechanical falls, or unexplained falls Dizziness Severe headache Blood in vomit, stools (black or red color) [id number] [employer]. [address] [place] [address], [place] [address]. All rights reserved. This information is not intended as a substitute for professional medical care. Always follow yourhealthcare professional's instructions. Follow Up Care 07/08/2022 15:15:31 With:DENISSE SUTTON Address: [address] [facility] [place] [address]- [phone] Business (1) When:2-4 days Comments:Follow-up as needed if symptoms or not improving.Limit activity and weightbearing as tolerated.Use ice/cold compresses to injured areas.Topical antibiotic ointment like Neosporin or bacitracin to abrasions.Use Tylenol or Advil for pain as needed.Return to the ED if symptoms worsen. [facility] 04-11-2023 Emergency department Discharge summary Discharge Instructions Thank you for allowing [facility] to assist you with your healthcare needs. The following is importantdischarge information regarding your hospital visit. Diagnosis from Today's Visit Fall What to Do Next Instructions from Your Care Team No qualifying data available. Post Acute Orders No qualifying data available. You Need to Schedule the Following Appointments Follow Up with DENISSE SUTTON When Within 2-4 days Why: Follow-up as needed if symptoms or not improving. Limit activity and weightbearing as tolerated. Use ice/cold compresses to injured areas. Topical antibiotic ointment like Neosporin or bacitracin to abrasions. Use Tylenol or Advil for pain as needed. Return to the ED if symptoms worsen. Where: [address] [facility] [place] [address]- [phone] Business (1) Allergies NKA Medications Please ask your primary doctor or pharmacist before taking any other medication not listed, including over the counter drugs, herbal medications, vitamins and or supplements as they may interact withyour home medications. What How Much When Why Instructions Last Dose Unchanged allopurinol (allopurinol 100 mg oral tablet) 1 tab(s) by mouth Once a day Unchanged amLODIPine (amLODIPine 10 mg oral tablet) 1 tab(s) by mouth Once a day Unchanged apixaban (Eliquis 5 mg oral tablet) 1 tab(s) by mouth Two (2) times a day Unchanged aspirin (aspirin 81 mg oral delayed release tablet) 1 tab(s) by mouth Once a day Unchanged atorvastatin (atorvastatin 80 mg oral tablet) 1 tab(s) by mouth Once a day Unchanged carvedilol (Coreg 6.25 mg oral tablet) 1 tab(s) by mouth Two (2) times a day Duration: 30 Days Unchanged cholecalciferol (Vitamin D3 50 mcg (2000 intl units) oral capsule) 1 tab(s) by mouth Every day Unchanged diclofenac topical (diclofenac 1% topical gel) 1 application Topical Four (4) times a day Unchanged DME (Blood Glucose Test Machine) See instructions Brand type per insurance or patient preference. Dx: E11.9, pt insulin dependent, test 4times/ day Unchanged DME (Blood Glucose Test Machine) See instructions Use as directed Brand type per insurance or patient preference Unchanged DME (Blood Glucose Test Strips) See instructions 1 bottle of 100 ---Test 4times/ day--Pt has accucheck guide dx E11.9 Pt insulin dependent. Unchanged DME (DME MISCellaneous) See instructions 2 pairs of compression stockings. Dx CHF. Unchanged DME (Lancets) See instructions qs 1 month supply--One touch delica plus Unchanged DME (Lancets) See instructions qs 1 month supply Unchanged DME (Lancets) See instructions qs 1 month supply--test four times daily--has accucheck guide dx E11.9, insulin dependent Unchanged DME (Pen needles 8 mm) See instructions BD UF 8mm 31 G (short) qs 1 month supply. In absence of PCP Unchanged docusate (DOK 100 mg oral capsule) 1 cap by mouth Two (2) times a day as needed for as needed for constipation Unchanged escitalopram (Lexapro 20 mg oral tablet) 1 tab(s) by mouth Once a day Duration: 30 Days Unchanged ezetimibe (Zetia 10 mg oral tablet) 1 tab(s) by mouth Once a day Unchanged famotidine (Pepcid 20 mg oral tablet) 1 tab(s) by mouth Once a day Duration: 7 Days Unchanged gabapentin (gabapentin 100 mg oral capsule) 1 cap by mouth Two (2) times a day Leg pain Duration: 30 Days In absence of PCP Unchanged hydrALAZINE (hydrALAZINE 100 mg oral tablet) 1 tab(s) by mouth Three (3) times a day Duration: 30 Days Unchanged insulin glargine (Toujeo Max SoloStar 300 units/ mL subcutaneous solution) 20 unit(s) Subcutaneous Once a day Duration: 30 Days Unchanged insulin lispro (HumaLOG) (HumaLOG KwikPen 100 units/ mL injectable PEN) 5 unit(s) Subcutaneous Two (2) times daily before meals Unchanged lactobacillus acidophilus (Acidophilus Probiotic Blend oral capsule) 1 cap by mouth Once a day Unchanged multivitamin (Nephro-Todd oral tablet) 1 tab(s) by mouth Once a day Unchanged potassium chloride (potassium chloride 10 mEq oral capsule, extended release) 1 cap by mouth Two (2) times a day Unchanged torsemide (torsemide 100 mg oral tablet) 0.5 tab(s) by mouth Two (2) times a day Duration: 90 Days Please take this list to your next doctor s visit. Bring all medications you take, including over the counter medications, herbals and other supplements with you to your doctor s visit. Patients and families are reminded to discard old lists and to update any records with all medication providers or retail pharmacies. Education Materials Abrasions Abrasions are skin scrapes. Their treatment depends on how large and deep the abrasion is. Home care You may be prescribed an antibiotic cream or ointment to apply to the wound. This helps prevent infection. Follow instructions when using this medicine. General care To care for the abrasion, do the following each day for as long as directed by your healthcare provider. oIf you were given a bandage, change it once a day. If your bandage sticks to the wound, soak it inwarm water until it loosens. oWash the area with soap and warm water. You may do this in a sink or under a tub faucet or shower.Rinse off the soap. Then pat the area dry with a clean towel. oIf antibiotic ointment or cream was prescribed, reapply it to the wound as directed. Cover the wound with a fresh nonstick bandage. If the bandage becomes wet or dirty, change it as soon as possible. oSome antibiotic ointments or cream can cause an allergic reaction or dermatitis. This may cause redness, itching and or hives. If this occurs, stop using the ointment immediately and wash off any remaining ointment. You may need to take some allergy medicine to relieve symptoms. You may use acetaminophen or ibuprofen to control pain unless another pain medicine was prescribed.Talk with your healthcare provider before using these medicines if you have chronic liver or kidneydisease or ever had a stomach ulcer or GI bleeding. Don t use ibuprofen in children younger than six months old. Most skin wounds heal within 10 days. But an infection may occur even with treatment. So it s important to watch the wound for signs of infection as listed below. Follow-up care Follow up with your healthcare provider, or as advised. When to seek medical advice Call your healthcare provider right away if any of these occur: Fever of 100.4 F (38 C) or higher, or as directed by your healthcare provider Increasing pain, redness, swelling, or drainage from the wound Bleeding from the wound that does not stop after a few minutes of steady, firm pressure Decreased ability to move any body part near the wound [id number] [employer]. [address] [place] [address]. All rights reserved. This information is not intended as a substitute for professional medical care. Always follow yourhealthcare professional's instructions. Lower Extremity Contusion You have a contusion (bruise) of a lower extremity (leg, knee, ankle, foot, or toe). Symptoms include pain, swelling, and skin discoloration. No bones are broken. This injury may take from a few daysto a few weeks to heal. During that time, the bruise may change from reddish in color, to purple-blue, to green- yellow, to yellow-brown. Home care Unless another medicine was prescribed, you can take acetaminophen, ibuprofen, or naproxen to control pain. (If you have chronic liver or kidney disease or ever had a stomach ulcer or gastrointestinal bleeding, talk with your doctor before using these medicines.) Elevate the injured area to reduce pain and swelling. As much as possible, sit or lie down with theinjured area raised about the level of your heart. This is especially important during the first 48hours. Ice the injured area to help reduce pain and swelling. Wrap a cold source (ice pack or ice cubes laxmi plastic bag) in a thin towel. Apply to the bruised area for 20 minutes every 1 to 2 hours the first day. Continue this 3 to 4 times a day until the pain and swelling goes away. If crutches have been advised, do not bear full weight on the injured leg until you can do so without pain. You may return to sports when you are able to put full weight and impact on the injured legwithout pain. Follow up Follow up with your healthcare provider or our staff as advised. Call if you are not improving within the next 1 to 2 weeks. When to seek medical advice Call your healthcare provider right away if any of these occur: Increased pain or swelling Foot or toes become cold, blue, numb or tingly Signs of infection: Warmth, drainage, or increased redness or pain around the injury Inability to move the injured area , or any joints below the injured area. Frequent bruising for unknown reasons [phone] [employer]. [address] [place] [address]. All rights reserved. This information is not intended as a substitute for professional medical care. Always follow yourhealthcare professional's instructions. Head Injury (Adult) You have a head injury. It does not appear serious at this time. But symptoms of a more serious problem, such as a mild brain injury (concussion) or bruising or bleeding in the brain, may appear later. For this reason, you or someone caring for you will need to watch for the symptoms listed below. Once you re home, also be sure to follow any care instructions you re given. Home care Watch for the following symptoms Seek emergency medical care if you have any of these symptoms over the next hours to days: Headache Nausea or vomiting Dizziness Sensitivity to light or noise Unusual sleepiness or grogginess Trouble falling asleep Personality changes Vision changes Memory loss Confusion Trouble walking or clumsiness Loss of consciousness (even for a short time) Inability to be awakened Stiff neck Weakness or numbness in any part of the body Seizures General care If you were prescribed medicines for pain, use them as directed. Note: Don t take other medicines for pain without talking to your provider first. To help reduce swelling and pain, apply a cold source to the injured area for up to 20 minutes at atime. Do this as often as directed. Use a cold pack or bag of ice wrapped in a thin towel. Never apply a cold source directly to the skin. If you have cuts or scrapes as a result of your head injury, care for them as directed. For the next 24 hours (or longer, if instructed): oDon t drink alcohol or use sedatives or other medicines that make you sleepy. oDon t drive or operate machinery. oDon t do anything strenuous, such as heavy lifting or straining. oLimit tasks that require concentration. This includes reading, using a smartphone or computer, watching TV, and playing video games. oDon t return to sports or other activities that could result in another head injury. Follow-up care Follow up with your healthcare provider, or as directed. If imaging tests were done, they will be reviewed by a doctor. You will be told the results and any new findings that may affect your care. When to seek medical advice Call your healthcare provider right away if any of these occur: Pain doesn t get better or worsens New or increased swelling or bruising Fever of 100.4 F (38 C) or higher, or as directed by your provider Increased redness, warmth, drainage, or bleeding from the injured area Fluid drainage or bleeding from the nose or ears Any depression or bony abnormality in the injured area Persistent confusion or lethargy Bruising behind the ears or bruising around the eyes [phone] [employer] [place] [address]. All rights reserved. This information is not intended as a substitute for professional medical care. Always follow yourhealthcare professional's instructions. Mechanical Fall You have had a fall today. It appears that the cause is what is called mechanical. That means that you slipped, tripped, or lost your balance. If your fall had been because of fainting or a seizure, you might need other tests. It is normal to feel sore and tight in your muscles and back the next day, and not just the musclesyou injured at first. Remember, all the parts of your body are connected, so while initially one area hurts, the next day another may hurt. Also, when you injure yourself, it causes inflammation, which then causes the muscles to tighten up and hurt more. After the initial worsening, it should gradually improve over the next few days. Do report more severe pain. Even without a definite head injury, you can still get a concussion from your head suddenly jerkingforward, backward, or sideways when falling. Concussions and even bleeding can still happen, especially if you have had a recent injury or take blood thinner medicine. It is not unusual to have a mild headache and feel tired and even nauseous or dizzy. Home care Rest today and go back to your normal activities when you are feeling back to normal. If you were injured during the fall, follow the advice from your healthcare provider regarding careof your injury. At first, do not try to stretch out the sore spots. If there is a strain, stretching may make it worse. Massage may help relax the muscles without stretching them. You can use an ice pack or cold compress on and off to the sore spots 10 to 20 minutes at a time, as often as you feel comfortable. This may help reduce the inflammation, swelling and pain. If you have any scrapes or abrasions, they usually heal within 10 days. It is important to keep theabrasions clean while they initially start to heal. However, an infection may happen even with proper care, so watch for early signs of infection (such as warmth, redness, or swelling). Medicines Talk to your healthcare provider before taking new medicines, especially if you have other medical problems or are taking other medicines. If you need anything for pain, you can take acetaminophen or ibuprofen, unless you were given a different pain medicine to use. Talk with your healthcare provider before using these medicines if you have chronic liver or kidney disease, or ever had a stomach ulcer or gastrointestinal bleeding, or are taking blood thinner medicines. Be careful if you are given prescription pain medicines, narcotics, or medicine for muscle spasm. They can make you sleepy and dizzy, and can affect your coordination, reflexes, and judgment. Do not drive or do work where you can injure yourself when taking them. Fall prevention Fix, remove, or replace anything that caused your fall. Make your home safe by keeping walkways clear of objects you may trip over. Use nonslip pads under rugs. Don't use small area rugs or throw rugs. Don't walk in poorly lit areas. Don't stand on chairs or wobbly ladders. Use caution when reaching overhead or looking upward. This position can cause a loss of balance. Be sure your shoes fit properly, have nonslip bottoms and are in good condition. Be cautious when going up and down curbs, and walking on uneven sidewalks. If your balance is poor, consider using a cane or walker. Stay as active as you can. Balance, flexibility, strength, and endurance all come from exercise. They all play a role in preventing falls. If you have pets, know where they are before you stand up or walk so you don't trip over them. Limit alcohol intake. Alcohol can cause balance problems and increase the risk of falls. Use night lights. Have your eyes tested to be sure you are seeing well, even if you already wear glasses. Follow-up Follow up with your healthcare provider, or as advised. If X-rays or CT scans were done, you will be notified if there is a change in the reading, especially if it affects treatment. Call 911 Call 911 if any of these happen: Trouble breathing Confused or difficulty arousing Fainting or loss of consciousness Rapid or very slow heart rate Seizure Difficulty with speech or vision, weakness of an arm or leg Difficulty walking or talking, loss of balance, numbness or weakness in one side of your body, or facial droop When to seek medical advice Call your healthcare provider right away if any of these happen: Repeated mechanical falls, or unexplained falls Dizziness Severe headache Blood in vomit, stools (black or red color) [phone] [employer]. [address] [place] [address]. All rights reserved. This information is not intended as a substitute for professional medical care. Always follow yourhealthcare professional's instructions. Additional Information VACCINATE! IT SAVES LIVES! Members of the community who have not yet received the COVID-19 vaccine and would like to receive it can visit one of [facility] vaccine clinics. There are many vaccine clinic locations within the [facility]. For locations and available times, please visit www.gettheshot.coronavirus.[place].gov/. It is important to note that some COVID mobile vaccine clinics are held outdoors and may be canceled in rainy or stormy conditions. To learn more about pediatric vaccinations (ages 5-11), we invite you to visit the [facility] webpage. [email or web address]/[email or web address] learn more about the COVID-19 vaccine, we invite you to visit the CDC website for a list of frequently asked questions. https://www.cdc.gov/coronavirus/2019-ncov/vaccines/faq.html [facility] Patient Portal Access Instructions: Stay connected with your healthcare team and access your personal medical information anytime with the [facility] Patient Portal. If you would like a full copy of your medical records please contact the [facility] Medical Records Department Thursday through Thursday between 8a.m. and 4:30p.m. Please follow the directions below to access the portal: 1.Access the email account you provided upon registration to the [facility].2.Look for an invitation email from [facility].3.Open the email and access the invitation link: Accept Invitation to [facility].Fill in the required gilmore to create your account. Sign into [email or web address] [employer] with your username and password that you created in the above steps to stay up to date. You can then view a summary of results, a summary of your visits, and the ability to download your summaries to your computer or send the information securely to a physician. Remember that your healthcare information is confidential, so carefully consider who you will allow to register on the [facility] Patient Portal for access to your information. You can also access the [facility] Patient Portal on the [employer] toby. Simply click on Health Records under [employer] and then click on the [facility] logo. HOW TO SAFELY DISPOSE OF PRESCRIPTION MEDICATIONS Please use one of the following methods to safely dispose of your unused medications. 1.Use a drug disposal kit: the drug disposal pouch allows you to safely discard your old and unuseddrugs. Ask your nurse to give you one when you are discharged.2.Visit a local take-back location: Many local pharmacies and police departments have programs that collect old and unwanted prescriptiondrugs. Call your local pharmacy or go to http://britebill.[employer]/3D6Gf8o to find one close to you.3.Make use of household items: Use cat litter or old coffee grounds to dispose medications if other options arenot available. Mix your drugs with these household products, seal them in an airtight container andthrow it into the garbage. Call [facility]: [phone] to be sure your drugs can be disposed of in this way. Some medicines may require a different approach.4.Never flush your medications down the toilet. IF YOU HAVE BEEN PRESCRIBED AN OPIOIDS FOR PAIN If you have been prescribed an opioid (such as hydrocodone, oxycodone or morphine), it is critical to understand the possible side effects and risks of opioid pain medications. Even when taken as directed, opioids can have several side effects including: Tolerance, meaning you might need to take more of a medication for the same pain relief. Nausea, vomiting and/or constipation. Sleepiness, dizziness, dry mouth, confusion, depression or itching. Physical dependence, meaning you have withdrawal symptoms when a medication is stopped ? this can develop within a few days. KNOW YOUR RESPONSIBILITIES It is important to know exactly how much and how often to take the opioid pain medications you are prescribed. Never take opioids in higher amounts or more often than prescribed. Do not combine opioids with alcohol or other drugs that cause drowsiness, such as benzodiazepines, also known as benzos,including diazepam and alprazolam, muscle relaxants or sleep aids. Never sell or share prescriptionopioids. This is illegal. Store opioids in a secure place and out of reach of others (including children, family, friends and visitors). The last page(s) of this document has been signed and retained as a CHART COPY Signatures Patient Education Materials Abrasions Lower Extremity Contusion Head Injury (Adult) Fall, Mechanical Medication Leaflets My discharge plan and instructions have been reviewed and explained to me and I,ZAYDA DAVIS understand my current condition and have read and understand these discharge instructions. I have received a written copy of the plan/instructions. If I have questions, I am aware that I should contactmy doctor. Patient/Identity Management Developer Signature: Date/Time: Relationship to Patient: Witness Name/Signature: Date/Time: [facility]04-11-2023 Note ORIGINAL EXAMINATION: CT OF THE HEAD WITHOUT CONTRAST 07/08/2022 3:52 pm TECHNIQUE: CT of the head was performed without the administration of intravenous contrast. Automated exposure control, iterative reconstruction, and/or weight based adjustment of the mA/kV was utilized to reduce the radiation dose to as low as reasonably achievable. COMPARISON: Head CT on 09/13/2021 HISTORY: ORDERING SYSTEM PROVIDED HISTORY: Status post fall Reason for Exam: INJURY FINDINGS: BRAIN/VENTRICLES: No acute intracranial hemorrhage, mass, mass effect, or midline shift. No acute large territorial infarct. 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 No abnormal extra-axial fluid collection. Scattered white matter hypodensities are nonspecific but compatible with mild chronic microvascular angiopathy. Calcific atherosclerosis within the internal carotid arteries. ORBITS: 3 no acute abnormality. SINUSES: Right maxillary sinus mucosal thickening. Left sphenoid sinus mucous retention cyst. SOFT TISSUES/SKULL: Left frontal scalp hematoma. The skull base and calvarium are intact. Barium IMPRESSION: No acute intracranial hemorrhage or mass effect. I have personally reviewed the images of this examination and agree with the resident's findings and interpretation. Interpreted by: Gelacio Barnes DO Preliminary Report By: Chantal Mathur Electronically signed By Gelacio Barnes DO Dictated Date: 07/08/2022 3:58:04 PM Prelim Date: 07/08/2022 4:03:32 PM Sign Date: 07/08/2022 4:34:20 PM Ordering Provider: [facility]04-11-2023 Note ORIGINAL EXAMINATION: CT OF THE CERVICAL SPINE WITHOUT CONTRAST 07/08/2022 3:52 pm TECHNIQUE: CT of the cervical spine was performed without the administration of intravenous contrast. Multiplanar reformatted images are provided for review. Automated exposure control, iterative reconstruction, and/or weight based adjustment of the mA/kV was utilized to reduce the radiation dose to as low as reasonably achievable. COMPARISON: None. HISTORY: ORDERING SYSTEM PROVIDED HISTORY: Reason for Exam: INJURY FINDINGS: BONES/ALIGNMENT: There is no acute fracture or traumatic malalignment. Mild reversal of the cervical lordosis may be positional or related to spasm. DEGENERATIVE CHANGES: Minimal degenerative changes. A lucency along the superior endplate of T2 may represent a Schmorl's node or hemangioma but is nonspecific. SOFT TISSUES: There is no prevertebral soft tissue swelling. IMPRESSION: No acute fracture or traumatic malalignment. Lucent lesion superior endplate of T2 may represent a Schmorl's node or hemangioma but is nonspecific. Interpreted by: Chaparrita Long MD Preliminary Report By: Chaparrita Long MD Electronically signed By Chaparrita Long MD Dictated Date: 07/08/2022 4:05:35 PM Prelim Date: 07/08/2022 4:10:31 PM Sign Date: 07/08/2022 4:10:31 PM Ordering Provider: [address]11-2023 Note ORIGINAL EXAMINATION: THREE XRAY VIEWS OF THE RIGHT KNEE07/08/2022 3:52 pm COMPARISON: None available HISTORY: ORDERING SYSTEM PROVIDED HISTORY: Reason for Exam: Fall, right knee pain FINDINGS: There is no visualized acute fracture or dislocation. No radiopaque foreign body or soft tissue gas is seen. No joint effusion is visualized. Mild medial and patellofemoral and moderate lateral compartmental degenerative changes. Quadriceps and patellar enthesopathy. Vascular calcifications. IMPRESSION: No acute fracture or dislocation. Degenerative changes as above. I have personally reviewed the images of this examination and agree with the resident's findings and interpretation. Interpreted by: German Awan MD Preliminary Report By: Francisca Kevin Electronically signed By German Awan MD Dictated Date: 07/08/2022 3:57:24 PM Prelim Date: 07/08/2022 4:02:26 PM Sign Date: 07/08/2022 4:02:26 PM Ordering Provider: [place] [id number] Note ORIGINAL EXAMINATION: THREE XRAY VIEWS OF THE RIGHT KNEE07/08/2022 3:52 pm COMPARISON: None available HISTORY: ORDERING SYSTEM PROVIDED HISTORY: Reason for Exam: Fall, right knee pain FINDINGS: There is no visualized acute fracture or dislocation. No radiopaque foreign body or soft tissue gas is seen. No joint effusion is visualized. Mild medial and patellofemoral and moderate lateral compartmental degenerative changes. Quadriceps and patellar enthesopathy. Vascular calcifications. IMPRESSION: No acute fracture or dislocation. Degenerative changes as above. I have personally reviewed the images of this examination and agree with the resident's findings and interpretation. Interpreted by: German Awan MD Preliminary Report By: Francisca Kevin Electronically signed By German Awan MD Dictated Date: 07/08/2022 3:57:24 PM Prelim Date: 07/08/2022 4:02:26 PM Sign Date: 07/08/2022 4:02:26 PM Ordering Provider: [address]11-2023 Note ORIGINAL EXAMINATION: CT OF THE CERVICAL SPINE WITHOUT CONTRAST 07/08/2022 3:52 pm TECHNIQUE: CT of the cervical spine was performed without the administration of intravenous contrast. Multiplanar reformatted images are provided for review. Automated exposure control, iterative reconstruction, and/or weight based adjustment of the mA/kV was utilized to reduce the radiation dose to as low as reasonably achievable. COMPARISON: None. HISTORY: ORDERING SYSTEM PROVIDED HISTORY: Reason for Exam: INJURY FINDINGS: BONES/ALIGNMENT: There is no acute fracture or traumatic malalignment. Mild reversal of the cervical lordosis may be positional or related to spasm. DEGENERATIVE CHANGES: Minimal degenerative changes. A lucency along the superior endplate of T2 may represent a Schmorl's node or hemangioma but is nonspecific. SOFT TISSUES: There is no prevertebral soft tissue swelling. IMPRESSION: No acute fracture or traumatic malalignment. Lucent lesion superior endplate of T2 may represent a Schmorl's node or hemangioma but is nonspecific. Interpreted by: Chaparrita Long MD Preliminary Report By: Chaparrita Long MD Electronically signed By Chaparrita Long MD Dictated Date: 07/08/2022 4:05:35 PM Prelim Date: 07/08/2022 4:10:31 PM Sign Date: 07/08/2022 4:10:31 PM Ordering Provider: [facility]04-11-2023 Note ORIGINAL EXAMINATION: CT OF THE HEAD WITHOUT CONTRAST 07/08/2022 3:52 pm TECHNIQUE: CT of the head was performed without the administration of intravenous contrast. Automated exposure control, iterative reconstruction, and/or weight based adjustment of the mA/kV was utilized to reduce the radiation dose to as low as reasonably achievable. COMPARISON: Head CT on 09/13/2021 HISTORY: ORDERING SYSTEM PROVIDED HISTORY: Status post fall Reason for Exam: INJURY FINDINGS: BRAIN/VENTRICLES: No acute intracranial hemorrhage, mass, mass effect, or midline shift. No acute large territorial infarct. 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 No abnormal extra-axial fluid collection. Scattered white matter hypodensities are nonspecific but compatible with mild chronic microvascular angiopathy. Calcific atherosclerosis within the internal carotid arteries. ORBITS: 3 no acute abnormality. SINUSES: Right maxillary sinus mucosal thickening. Left sphenoid sinus mucous retention cyst. SOFT TISSUES/SKULL: Left frontal scalp hematoma. The skull base and calvarium are intact. Barium IMPRESSION: No acute intracranial hemorrhage or mass effect. I have personally reviewed the images of this examination and agree with the resident's findings and interpretation. Interpreted by: Gelacio Barnes DO Preliminary Report By: Chantal Mathur Electronically signed By Gelacio Barnes DO Dictated Date: 07/08/2022 3:58:04 PM Prelim Date: 07/08/2022 4:03:32 PM Sign Date: 07/08/2022 4:34:20 PM Ordering Provider: [facility]01-17-2023 SARS-CoV-2 (COVID-19) RNA YANI+probe Ql (Nph)Negative *NA* (04/15/22 4:28 PM)AO Auto Urine [id number] Note ORIGINAL PROCEDURE: IR ANGIOGRAM ARTERIOVENOUS SHUNT PERIPHERAL VENOGRAM PERIPHERAL ARTERIOGRAM PERIPHERAL ANGIOPLASTY OF THE VENOUS INFLOW TRACT AT 5 AND 6 MM MODERATE CONSCIOUS SEDATION 02/25/2022 HISTORY: ORDERING SYSTEM PROVIDED HISTORY: Reason for Exam: ESRD TECHNIQUE: ULTRASOUND AND FLUOROSCOPIC GUIDED CONTRAST: 22 cc Omnipaque 3 Pires SEDATION: 0.5 mgversed and 25 mcg fentanyl were titrated intravenously for moderate sedation monitored under my direction. Total intraservice time of sedation was 96 minutes. The patient's vital signs were monitored throughout the procedure and recorded in the patient's medical record by the nurse. FLUOROSCOPY DOSE AND TYPE OR TIME AND EXPOSURES: Fluoroscopy time: 6.8 minutes Total DLP: 12 mGy Number of images: 11 ultrasound and 12 fluoroscopic Vascular access requiring ultrasound evaluation of potential access sites with documentation of the selected vessels for patency with concurrent real time ultrasound visualization of vascular needle entry with permanent recording and reporting was performed. DESCRIPTION OF PROCEDURE: Informed consent was obtained after a detailed explanation of the procedure including risks, benefits, and alternatives. Hull protocol was observed. Sterile gowns, masks, hats and gloves utilized for maximal sterile barrier. Sonographic evaluation of the fistula was performed with color and duplex Doppler. 1% lidocaine was used for local anesthesia. Using a scalpel an incision was made near the arterial anastomosis. There is a focal zone of narrowing and a pseudoaneurysm present at the venous anastomosis. The fistula was accessed just proximal to the pseudoaneurysm using a micropuncture set. A peripheral fistulogram was performed. A central venogram was obtained. Under ultrasound guidance and using a micropuncture set a 2nd access was achieved in the fistula towards the arterial anastomosis and a 6 [place] vascular sheath was placed. Using an angled Glidewire the brachial artery was selected. A brachial artery angiogram was obtained. A 5 x 60 mm balloon was deployed and angioplasty of the tract was performed for 3 minute intervals. The patient was anticoagulated with heparin. Post angioplasty images revealed increased flow and return of a thrill within the catheter. There are two proximal stenoses in the fistula. There was moderate narrowing remaining between the 2 proximal pseudoaneurysms used for access. A 6 x 60 mm balloon was then deployed across this region and near the arterial anastomosis and additional angioplasty was performed. Post angioplasty images revealed increased flow through this region. There was increased flow and widening of the diameter at the arterial anastomosis. FINDINGS: There was a significant stenosis at the proximal venous anastomosis. There was a severe stenosis between the injection pseudoaneurysm sites. This was successfully angioplastied to 6 mm. There was no central venous stenosis. The Brachial artery was patent. A thrill was returned in the fistula. IMPRESSION: 1) Successful venous stenosis angioplasty to 6 mm 2) Patent central venous outflow tract. 3) Patent arterial anastomosis. 4) Moderate conscious sedation. Interpreted by: Jay Canela Preliminary Report By: Jay Canela Electronically signed By Jay Canela Dictated Date: 02/25/2022 9:40:11 PM Prelim Date: 02/25/2022 10:26:58 PM Sign Date: 02/25/2022 10:26:58 PM Ordering Provider: [facility]11-29-2022 Hospital Discharge instructions Patient Education 02/25/2022 14:40:37 3- Fistulogram ([facility]) 04/2019 (CUSTOM) Fistulogram Discharge Instructions This information has been developed to provide you with written guidelines to supplement the verbalinstructions your doctor has reviewed with you. It is very important that you follow any additionalinstructions your doctor has provided. ACTIVITY Rest the remainder of the day. You may resume your normal activity tomorrow. You may bathe/shower after 24 hours No heavy listing, pushing or straining. Do not operate heavy machinery, drive or make legal decisions for 24 hours after your procedure. Someone must drive you home WOUND CARE Apply pressure to the site if bleeding excessively and call your physician or if unavailable, go tot emergency department. There will be a small dressing over the site. The dressing will be removed at your next dialysis appointment. Wash incision with soap and water Some bruising, swelling, and discomfort is normal CALL YOUR DOCTOR FOR: Increased redness or inflammation at the site Fever or chills that you cannot connect to a cold or flu Drainage or pus from the incision SEEK IMMEDIATE MEDICAL CARE IF: You have symptoms of a heart attack such as chest pain, trouble breathing, nausea or vomiting You have symptoms of a stroke such as weakness, numbness or drooping of one side of your body, confusion, difficulty speaking, a severe headache or vision loss. Lightheadedness, dizziness or fainting. Bleeding from the site that cannot be controlled by applying pressure to the site. If you have any questions, please call your doctor at the number listed on your follow up instructions. Follow all instructions given to you by your doctor 02/25/2022 14:39:42 Moderate Conscious Sedation, Adult, Care After Moderate Conscious Sedation, Adult, Care After These instructions provide you with information about caring for yourself after your procedure. Your health care provider may also give you more specific instructions. Your treatment has been plannedaccording to current medical practices, but problems sometimes occur. Call your health care provider if you have any problems or questions after your procedure. What can I expect after the procedure? After your procedure, it is common: To feel sleepy for several hours. To feel clumsy and have poor balance for several hours. To have poor judgment for several hours. To vomit if you eat too soon. Follow these instructions at home: For at least 24 hours after the procedure: Do not: ?Participate in activities where you could fall or become injured. ?Drive. ?Use heavy machinery. ?Drink alcohol. ?Take sleeping pills or medicines that cause drowsiness. ?Make important decisions or sign legal documents. ?Take care of children on your own. Rest. Eating and drinking Follow the diet recommended by your health care provider. If you vomit: ?Drink water, juice, or soup when you can drink without vomiting. ?Make sure you have little or no nausea before eating solid foods. General instructions Have a responsible adult stay with you until you are awake and alert. Take [id number]-tka-[id number] and prescription medicines only as told by your health care provider. If you smoke, do not smoke without supervision. Keep all follow-up visits as told by your health care provider. This is important. Contact a health care provider if: You keep feeling nauseous or you keep vomiting. You feel light-headed. You develop a rash. You have a fever. Get help right away if: You have trouble breathing. This information is not intended to replace advice given to you by your health care provider. Make sure you discuss any questions you have with your health care provider. Document Released: 01/04/2014 Document Revised: 02/26/2018 Document Reviewed: 07/05/2016 [employer] Patient Education 2020 [employer]. Follow Up Care 02/11/2022 12:49:51 With:Follow up with primary care provider Address:Unknown When: Unknown [facility] 11-29-2022 Summary of episode note Discharge Instructions Thank you for allowing [facility] to assist you with your healthcare needs. The following is importantdischarge information regarding your hospital visit. Your Care Team DENISSE SUTTON What to do next Scheduled Follow-Up Appointments Appointment Type When With Where Contact InformationDB Diabetic Individual Visit ([facility]) 03/19/2022 02:30 PM KEYSHAWN [facility]arg[facility] 05/21/2022 10:00 AM DENISSE KOENIG [facility] Follow Up Appointments Follow Up with Follow up with primary care provider When Allergies NKA Medications Please ask your primary doctor or pharmacist before taking any other medication not listed, including over the counter drugs, herbal medications, vitamins and or supplements as they may interact withyour home medications. What How Much When Why Instructions Last Dose Unchanged allopurinol (allopurinol 100 mg oral tablet) 1 tab(s) by mouth Once a day Unchanged amLODIPine (amLODIPine 10 mg oral tablet) 1 tab(s) by mouth Once a day Unchanged apixaban (Eliquis 5 mg oral tablet) 1 tab(s) by mouth Two (2) times a day Unchanged aspirin (aspirin 81 mg oral delayed release tablet) 1 tab(s) by mouth Once a day Unchanged atorvastatin (atorvastatin 80 mg oral tablet) 1 tab(s) by mouth Once a day Unchanged carvedilol (Coreg 6.25 mg oral tablet) 1 tab(s) by mouth Two (2) times a day Duration: 30 Days Unchanged cholecalciferol (Vitamin D3 50 mcg (2000 intl units) oral capsule) 1 tab(s) by mouth Every day Unchanged diclofenac topical (diclofenac 1% topical gel) 1 application Topical Four (4) times a day Unchanged DME (Blood Glucose Test Machine) See instructions Brand type per insurance or patient preference. Dx: E11.9, pt insulin dependent, test 4times/ day Unchanged DME (Blood Glucose Test Machine) See instructions Use as directed Brand type per insurance or patient preference Unchanged DME (Blood Glucose Test Strips) See instructions 1 bottle of 100 ---Test 4times/ day--Pt has accucheck guide dx E11.9 Pt insulin dependent. Unchanged DME (DME MISCellaneous) See instructions 2 pairs of compression stockings. Dx CHF. Unchanged DME (Lancets) See instructions qs 1 month supply--One touch delica plus Unchanged DME (Lancets) See instructions qs 1 month supply Unchanged DME (Lancets) See instructions qs 1 month supply--test four times daily--has accucheck guide dx E11.9, insulin dependent Unchanged docusate (DOK 100 mg oral capsule) 1 cap by mouth Two (2) times a day as needed for as needed for constipation Unchanged escitalopram (Lexapro 20 mg oral tablet) 1 tab(s) by mouth Once a day Duration: 30 Days Unchanged ezetimibe (Zetia 10 mg oral tablet) 1 tab(s) by mouth Once a day Unchanged famotidine (Pepcid 20 mg oral tablet) 1 tab(s) by mouth Once a day Duration: 7 Days Unchanged gabapentin (gabapentin 100 mg oral capsule) 1 cap by mouth Two (2) times a day Leg pain Duration: 30 Days Unchanged hydrALAZINE (hydrALAZINE 100 mg oral tablet) 1 tab(s) by mouth Three (3) times a day Duration: 30 Days Unchanged insulin glargine (Toujeo Max SoloStar 300 units/ mL subcutaneous solution) 20 unit(s) Subcutaneous Once a day Duration: 30 Days Unchanged lactobacillus acidophilus (Acidophilus Probiotic Blend oral capsule) 1 cap by mouth Once a day Unchanged melatonin (melatonin 10 mg oral tablet) 1 tab(s) by mouth Daily at bedtime as needed for as needed for insomnia Duration: 30 Days Unchanged multivitamin (Nephro-Todd oral tablet) 1 tab(s) by mouth Once a day Unchanged potassium chloride (potassium chloride 10 mEq oral capsule, extended release) 1 cap by mouth Two (2) times a day Unchanged torsemide (torsemide 100 mg oral tablet) 0.5 tab(s) by mouth Two (2) times a day Duration: 90 Days Please take this list to your next doctor s visit. Bring all medications you take, including over the counter medications, herbals and other supplements with you to your doctor s visit. Patients and families are reminded to discard old lists and to update any records with all medication providers or retail pharmacies. Education Materials Fistulogram Discharge Instructions This information has been developed to provide you with written guidelines to supplement the verbalinstructions your doctor has reviewed with you. It is very important that you follow any additionalinstructions your doctor has provided. ACTIVITY Rest the remainder of the day. You may resume your normal activity tomorrow. You may bathe/shower after 24 hours No heavy listing, pushing or straining. Do not operate heavy machinery, drive or make legal decisions for 24 hours after your procedure. Someone must drive you home WOUND CARE Apply pressure to the site if bleeding excessively and call your physician or if unavailable, go [facility] emergency department. There will be a small dressing over the site. The dressing will be removed at your next dialysis appointment. Wash incision with soap and water Some bruising, swelling, and discomfort is normal CALL YOUR DOCTOR FOR: Increased redness or inflammation at the site Fever or chills that you cannot connect to a cold or flu Drainage or pus from the incision SEEK IMMEDIATE MEDICAL CARE IF: You have symptoms of a heart attack such as chest pain, trouble breathing, nausea or vomiting You have symptoms of a stroke such as weakness, numbness or drooping of one side of your body, confusion, difficulty speaking, a severe headache or vision loss. Lightheadedness, dizziness or fainting. Bleeding from the site that cannot be controlled by applying pressure to the site. If you have any questions, please call your doctor at the number listed on your follow up instructions. Follow all instructions given to you by your doctor Moderate Conscious Sedation, Adult, Care After These instructions provide you with information about caring for yourself after your procedure. Your health care provider may also give you more specific instructions. Your treatment has been plannedaccording to current medical practices, but problems sometimes occur. Call your health care provider if you have any problems or questions after your procedure. What can I expect after the procedure? After your procedure, it is common: To feel sleepy for several hours. To feel clumsy and have poor balance for several hours. To have poor judgment for several hours. To vomit if you eat too soon. Follow these instructions at home: For at least 24 hours after the procedure: Do not: ? Participate in activities where you could fall or become injured. ? Drive. ? Use heavy machinery. ? Drink alcohol. ? Take sleeping pills or medicines that cause drowsiness. ? Make important decisions or sign legal documents. ? Take care of children on your own. Rest. Eating and drinking Follow the diet recommended by your health care provider. If you vomit: ? Drink water, juice, or soup when you can drink without vomiting. ? Make sure you have little or no nausea before eating solid foods. General instructions Have a responsible adult stay with you until you are awake and alert. Take [id number] and prescription medicines only as told by your health care provider. If you smoke, do not smoke without supervision. Keep all follow-up visits as told by your health care provider. This is important. Contact a health care provider if: You keep feeling nauseous or you keep vomiting. You feel light-headed. You develop a rash. You have a fever. Get help right away if: You have trouble breathing. This information is not intended to replace advice given to you by your health care provider. Make sure you discuss any questions you have with your health care provider. Document Released: 01/04/2014 Document Revised: 02/26/2018 Document Reviewed: 07/05/2016 [employer] Patient Education 2020 [employer] Additional Information VACCINATE! IT SAVES LIVES! Members of the community who have not yet received the COVID-19 vaccine and would like to receive it can visit one of [facility] vaccine clinics. There are many vaccine clinic locations within the [facility]. For locations and available times, please visit [email or web address] It is important to note that some COVID mobile vaccine clinics are held outdoors and may be canceled in rainy or stormy conditions. To learn more about pediatric vaccinations (ages 5-11), we invite you to visit the [facility] webpage. [email or web address] learn more about the COVID-19 vaccine, we invite you to visit the [facility] website for a list of frequently asked questions. [email or web address] [facility] Patient Portal Access Instructions: Stay connected with your healthcare team and access your personal medical information anytime with the [facility] Patient Portal.If you would like a full copy of your medical records, please contact the [facility] Medical Records Department, Thursday through Thursday between 8a.m. and 4:30p.m. Please follow the directions below to access the portal: 1.Access the email account you provided upon registration to the [facility].2.Look for an invitation email from [facility].3.Open the email and access the invitation link: Accept Invitation to [facility]4.Fill in the required gilmore to create your account. Sign into [email or web address] with your username and password that you created in the above steps to stay up to date. You can then view a summary of results, a summary of your visits, and the ability to download your summaries to your computer or send the information securely to a physician. Remember that your healthcare information is confidential, so carefully consider who you will allow to register on the [facility] Patient Portal for access to your information. You can also access the [facility] Patient Portal on the Less[employer] toby. Simply click on Health Records under HealthData and then click on the Kel[facility] logo. HOW TO SAFELY DISPOSE OF PRESCRIPTION MEDICATIONS Please use one of the following methods to safely dispose of your unused medications. 1.Use a drug disposal kit: the drug disposal pouch allows you to safely discard your old and unuseddrugs. Ask your nurse to give you one when you are discharged.2.Visit a local take-back location: Many local pharmacies and police departments have programs that collect old and unwanted prescriptiondrugs. Call your local pharmacy or go to http://bit.ly/1F4Pi5s to find one close to you.3.Make use of household items: Use cat litter or old coffee grounds to dispose medications if other options arenot available. Mix your drugs with these household products, seal them in an airtight container andthrow it into the garbage. Call [facility]: [phone] to be sure your drugs can be disposed of in this way. Some medicines may require a different approach.4.Never flush your medications down the toilet. IF YOU HAVE BEEN PRESCRIBED AN OPIOID FOR PAIN If you have been prescribed an opioid (such as hydrocodone, oxycodone or morphine), it is critical to understand the possible side effects and risks of opioid pain medications. Even when taken as directed, opioids can have several side effects including: Tolerance, meaning you might need to take more of a medication for the same pain relief. Nausea, vomiting and/or constipation. Sleepiness, dizziness, dry mouth, confusion, depression or itching. Physical dependence, meaning you have withdrawal symptoms when a medication is stopped, can develop within a few days. KNOW YOUR RESPONSIBILITIES It is important to know exactly how much and how often to take the opioid pain medications you are prescribed. Never take opioids in higher amounts or more often than prescribed. Do not combine opioids with alcohol or other drugs that cause drowsiness, such as benzodiazepines, also known as benzos, including diazepam and alprazolam, muscle relaxants or sleep aids. Never sell or share prescription opioids. This is illegal. Store opioids in a secure place and out of reach of others (including children, family, friends and visitors). The last page of this document has been signed and retained as a CHART COPY. Signatures Patient Education Materials 3- Fistulogram ([facility]) 04/2019 (CUSTOM) Moderate Conscious Sedation, Adult, Care After Medication Leaflets My discharge plan and instructions have been reviewed and explained to me and I,ZAYDA DAVIS understand my current condition and have read and understand these discharge instructions. I have received a written copy of the plan/instructions. If I have questions, I am aware that I should contactmy doctor. Patient/Identity Management Developer Signature: Date/Time: Relationship to Patient: Witness Name/Signature: Date/Time: [id number] Note ORIGINAL PROCEDURE: IR ANGIOGRAM ARTERIOVENOUS SHUNT PERIPHERAL VENOGRAM PERIPHERAL ARTERIOGRAM PERIPHERAL ANGIOPLASTY OF THE VENOUS INFLOW TRACT AT 5 AND 6 MM MODERATE CONSCIOUS SEDATION 02/25/2022 HISTORY: ORDERING SYSTEM PROVIDED HISTORY: Reason for Exam: ESRD TECHNIQUE: ULTRASOUND AND FLUOROSCOPIC GUIDED CONTRAST: 22 cc Omnipaque 3 Pires SEDATION: 0.5 mgversed and 25 mcg fentanyl were titrated intravenously for moderate sedation monitored under my direction. Total intraservice time of sedation was 96 minutes. The patient's vital signs were monitored throughout the procedure and recorded in the patient's medical record by the nurse. FLUOROSCOPY DOSE AND TYPE OR TIME AND EXPOSURES: Fluoroscopy time: 6.8 minutes Total DLP: 12 mGy Number of images: 11 ultrasound and 12 fluoroscopic Vascular access requiring ultrasound evaluation of potential access sites with documentation of the selected vessels for patency with concurrent real time ultrasound visualization of vascular needle entry with permanent recording and reporting was performed. DESCRIPTION OF PROCEDURE: Informed consent was obtained after a detailed explanation of the procedure including risks, benefits, and alternatives. Hull protocol was observed. Sterile gowns, masks, hats and gloves utilized for maximal sterile barrier. Sonographic evaluation of the fistula was performed with color and duplex Doppler. 1% lidocaine was used for local anesthesia. Using a scalpel an incision was made near the arterial anastomosis. There is a focal zone of narrowing and a pseudoaneurysm present at the venous anastomosis. The fistula was accessed just proximal to the pseudoaneurysm using a micropuncture set. A peripheral fistulogram was performed. A central venogram was obtained. Under ultrasound guidance and using a micropuncture set a 2nd access was achieved in the fistula towards the arterial anastomosis and a 6 [place] vascular sheath was placed. Using an angled Glidewire the brachial artery was selected. A brachial artery angiogram was obtained. A 5 x 60 mm balloon was deployed and angioplasty of the tract was performed for 3 minute intervals. The patient was anticoagulated with heparin. Post angioplasty images revealed increased flow and return of a thrill within the catheter. There are two proximal stenoses in the fistula. There was moderate narrowing remaining between the 2 proximal pseudoaneurysms used for access. A 6 x 60 mm balloon was then deployed across this region and near the arterial anastomosis and additional angioplasty was performed. Post angioplasty images revealed increased flow through this region. There was increased flow and widening of the diameter at the arterial anastomosis. FINDINGS: There was a significant stenosis at the proximal venous anastomosis. There was a severe stenosis between the injection pseudoaneurysm sites. This was successfully angioplastied to 6 mm. There was no central venous stenosis. The Brachial artery was patent. A thrill was returned in the fistula. IMPRESSION: 1) Successful venous stenosis angioplasty to 6 mm 2) Patent central venous outflow tract. 3) Patent arterial anastomosis. 4) Moderate conscious sedation. Interpreted by: Jay Canela Preliminary Report By: Jay Canela Electronically signed By Jay Canela Dictated Date: 02/25/2022 9:40:11 PM Prelim Date: 02/25/2022 10:26:58 PM Sign Date: 02/25/2022 10:26:58 PM Ordering Provider: [facility]11-29-2022 Note IR Procedure Record Summary Primary Physician: Finalized Date/Time: 02/25/22 14:08:28 Pt. Name: ZAYDA DAVIS /Sex: 1965 Female Med Rec #: [id number] Physician: Financial #: [id number] Pt. Type: S Room/Bed: [facility]/ Admit/Disch: 02/25/22 09:04:47 - Institution: Allergies identified in patient's electronic medical record at time of printing on 02/25/22 Entry 1 Substance NKA Reaction Type Allergy Last Modified By: SAPNA Bowles 07/16/18 17:33:02 Case Attendance- IR Entry 1 Entry 2 Entry 3 Case Attendee HILTON, JAY Galindo MD Hilton, RN Meggan Estrada Role Performed Radiologist Procedure Procedure Nurse Travel Money Advisor Details Time In 02/25/22 11:39:00 02/25/22 11:39:00 02/25/22 11:39:00 Time Out 02/25/22 13:53:00 02/25/22 12:58:00 02/25/22 13:57:00 Procedure/Preference IR Arteriogram AV Shunt IR Arteriogram AV Shunt IR Arteriogram AV Shunt Card Fistulogram SN Fistulogram SN Fistulogram SN Last Modified By: SAPNA Whitehead RN Deborah E Patton, RN Deborah E 02/25/22 13:57:08 02/25/22 13:57:08 02/25/22 13:57:08 Entry 4 Entry 5 Case Attendee Jazzmine Humphrey RN Deborah E Tech Role Performed Travel Money Advisor Procedure Nurse Details Time In 02/25/22 11:39:00 02/25/22 12:58:00 Time Out 02/25/22 13:57:00 02/25/22 12:58:00 Procedure/Preference IR Arteriogram AV Shunt IR Arteriogram AV Shunt Card Fistulogram SN Fistulogram SN Last Modified By: SAPNA Whitehead RN Deborah E 02/25/22 13:57:08 02/25/22 13:57:08 Radiology Procedures- IR Entry 1 Procedure/Preference IR Arteriogram AV Shunt Actual Procedure IR ARTERIOGRAM AV SHUNT Card Fistulogram SN FISTULOGRAM SN Primary Procedure Yes Primary Surgeon JAY CANELA MD Anesthesia/Sedation IV Sedation, Local Type Additional Procedure Times Start 02/25/22 11:57:00 Stop 02/25/22 13:35:00 Specialty Service SN Radiology Procedure EBL 2 mL Last Modified By: SAPNA Whitehead 02/25/22 13:54:06 Radiology Procedure Details - IR Entry 1 Radiology Sedation Case Times Sedation Start Time 02/25/22 11:59:00 Sedation Stop Time 02/25/22 13:35:00 Sedation Total Time 1 hr 36 min Radiology - Fluid/Drainage Radiology Contrast Contrast Used? Yes Dose 22 mL Medication OMNIPAQUE 300 50ML 10/CT Y-530 Radiology Flouroscopy Fluoroscopy Used? Yes Fluoro Dose (mGy) 12 Fluoro Time 6.8 min Radiology Local Local Used? Yes Local Type: 1 % lidocaine Local Dose 9 ml Radiology Procedure Site Site/Location left arm Site Condition No complications Dressing Type Gauze sponge 4 X 4, Bioclusive 4 X 5 Last Modified By: SAPNA Whitehead 02/25/22 13:56:53 General Case Data - IR Entry 1 Case Information Room IR 18 Case Level IR Level 3 Wound Class None Specialty SN Radiology Procedure ASA Class None Diagnosis Preop Diagnosis esrd Postop Same As Preop Yes Postop Diagnosis esrd Last Modified By: SAPNA Canela 02/25/22 11:22:07 Medication Administration- IR Entry 1 Entry 2 Entry 3 Medication versed fentanyl benadryl Time Administered 02/25/22 11:59:00 02/25/22 11:59:00 02/25/22 12:00:00 Route of Admin IV Push IV Push IV Push Dose 0.5 mg 25 mcg 25 mg Volume VORB * *Verbal Order Read Back (VORB) is required for NON- PHYSICIAN administration of medications. Administered by No No No Physician? Administered by: SAPNA Canela, SAPNA Canela, SAPNA Galindo Verbal Order Read JAY CANEAL MD, LAURIAN M MD DEAN, LAURIAN M MD Back from: Last Modified By: SAPNA Canela, SAPNA Whalen 02/25/22 12:01:21 02/25/22 12:01:21 02/25/22 12:01:21 Entry 4 Entry 5 Entry 6 Medication heparin versed fentanyl Time Administered 02/25/22 12:31:00 02/25/22 12:46:00 02/25/22 12:46:00 Route of Admin IV Push IV Push IV Push Dose 2000 units 0.5 mg 25 mcg Volume VORB * *Verbal Order Read Back (VORB) is required for NON- PHYSICIAN administration of medications. Administered by No No No Physician? Administered by: SAPNA Canela, SAPNA Canela, SAPNA Galindo Verbal Order Read JAY CANELA MD, LAURIAN M MD DEAN, LAURIAN M MD Back from: Last Modified By: SAPNA Canela RN Fran M Dean, RN Fran M 02/25/22 12:32:41 02/25/22 12:47:55 02/25/22 12:47:55 Entry 7 Medication heparin Time Administered 02/25/22 12:49:00 Route of Admin Intravenous Dose 500 units Volume VORB * *Verbal Order Read Back (VORB) is required for NON- PHYSICIAN administration of medications. Administered by Yes Physician? Administered by: JAY CANELA MD Verbal Order Read Back from: Last Modified By: SAPNA Canela 02/25/22 12:55:56 Procedure Case Times- IR Entry 1 Patient In Procedure Patient In OR 02/25/22 11:39:00 Patient Out of OR 02/25/22 13:57:00 Procedure Start/Stop Procedure Start Time 02/25/22 11:57:00 Procedure Stop Time 02/25/22 13:35:00 Last Modified By: SAPNA Whitehead 02/25/22 13:57:06 Immediate Post Procedure Note - IR Entry 1 Immediate Post Yes Procedure Note displayed for Physician to review Closure Technique Closure Technique Other than Primary Last Modified By: SAPNA Canela 02/25/22 12:01:25 Immediate Post Procedure Note - IR Signed By: JAY CANELA MD 02/25/22 13:48 Allergy Information- IR Entry 1 Allergies Reviewed? Yes Allergies Reviewed Medical Record With Last Modified By: SAPNA Canela 02/25/22 11:18:21 Radiology Protocols/Time Out- IR Entry 1 Preprocedure Clinician Verifies Correct patient ID When Clinically Confirmation of correct using name & date Indicated side(s) and site(s), or MRN, Accurate Correct diagnostic and procedure, complete radiology tests Informed Consent, H & P available, Required update immediately blood products, prior to procedure, if implants, devices applicable and/or special equipment available OR/Procedure Room/Bedside Time 02/25/22 11:57:00 Clinician Verifies Correct patient identity including EMR & records using name and date or medical record number, Accurate procedure consent form, Correct patient position, Necessary equipment is available, Anticipated non-routine events with surgical team (case duration, estimated blood loss, patient specific concerns). When Applicable Confirmation correct Team Members JAY CANELA MD, side and site marked, Present for Time Out Meggan Rosenthal, Relevant images and SAPNA Canela, results are properly Jazzmine Humphrey Rad labeled and Tech appropriately displayed, Alcohol based prep dry Instrument Sterility Procedure IR Arteriogram AV Shunt Fistulogram SN Last Modified By: SAPNA Canela 02/25/22 12:00:20 Skin Prep- IR Entry 1 Procedure IR Arteriogram AV Shunt Fistulogram SN Skin Prep Prep Area Arm Side Left By Jazzmine Humphrey Rad Prep Agents Chloraprep Tech Hair Removal Method N/A Last Modified By: SAPNA Canela 02/25/22 12:00:53 Patient Positioning- IR Entry 1 Procedure IR Arteriogram AV Shunt Body Position OP Supine Fistulogram SN Feet Uncrossed? Yes Pressure Points Yes Checked Last Modified By: SAPNA Canela 02/25/22 11:21:38 Radiology Procedure Plan - IR Entry 1 Radiology - Nursing Care Plan Outcome Statement The patient Outcome Statement The patient receives demonstrates knowledge Cont. appropriate of the expected medication(s), safely responses to the administered during the operative/invasive perioperative/invasive procedure., The period., The patient is patient's value system, free from signs and lifestyle, ethnicity, symptoms of injury and culture are caused by extraneous considered, respected, objects (equipment, and incorporated in the instrumentation, perioperative plan of sponges, or sharps)., care., The patient is The patient is free free from signs and from signs and symptoms symptoms of infection., of electrical injury., The patient is free The patient is at or from signs and symptoms returning to of injury related to normothermia at the positioning. conclusion of the immediate postoperative/invasive period. Radiology - Action Plan Outcomes Met? Yes Steel Sampler SAPNA Canela Completing Procedure Plan Last Modified By: SAPNA Canela 02/25/22 11:21:58 Case Comments Finalized By: SAPNA Canela Document Signatures Signed By: SAPNA Canela 02/25/22 14:08 [id number] Discharge summary Date of Service 02/25/2022 Discharge Diagnosis fistula stenoses Hospital Course unremarkable Allergies NKA Consults No qualifying data available. Objective Vitals and Measurements T: 36.2 C (Oral) HR: 56(Apical) RR: 16 BP: 124/66 BP: 129/67(Right Arm) SpO2: 94% HT: 155.0 cm WT: 95.9 kg BMI: 39.92 BMI: 39.92 Weight Dosing Weight: 95.9 kg (02/25/22) Code Status No qualifying data available. Admission Date 02/25/2022 Discharge Date 02/25/2022 Medications Unchanged allopurinol (allopurinol 100 mg oral tablet)1 tab(s) by mouth once a day. amLODIPine (amLODIPine 10 mg oral tablet)1 tab(s) by mouth once a day. Refills: 11. apixaban (Eliquis 5 mg oral tablet)1 tab(s) by mouth two (2) times a day. Refills: 11. aspirin (aspirin 81 mg oral delayed release tablet)1 tab(s) by mouth once a day. atorvastatin (atorvastatin 80 mg oral tablet)1 tab(s) by mouth once a day. Refills: 3. carvedilol (Coreg 6.25 mg oral tablet)1 tab(s) by mouth two (2) times a day for 30 Days. Refills: 11. cholecalciferol (Vitamin D3 50 mcg (2000 intl units) oral capsule)1 tab(s) by mouth every day. Refills: 11. diclofenac topical (diclofenac 1% topical gel)1 application Topical four (4) times a day. Refills: 3. DME (Blood Glucose Test Machine)Brand type per insurance or patient preference. Dx: E11.9, pt insulin dependent, test 4times/day. Refills: 0. DME (Blood Glucose Test Machine)Use as directed Brand type per insurance or patient preference. Refills: 0. DME (Blood Glucose Test Strips)1 bottle of 100 ---Test 4times/day--Pt has accucheck guide dx E11.9 Pt insulin dependent.. Refills: 11. DME (DME MISCellaneous)2 pairs of compression stockings. Dx CHF.. Refills: 0. DME (Lancets)qs 1 month supply--One touch delica plus. Refills: 11. DME (Lancets)qs 1 month supply. Refills: 11. DME (Lancets)qs 1 month supply--test four times daily--has accucheck guide dx E11.9, insulin dependent. Refills: 11. docusate (DOK 100 mg oral capsule)1 cap by mouth two (2) times a day as needed as needed for constipation. Refills: 3. escitalopram (Lexapro 20 mg oral tablet)1 tab(s) by mouth once a day for 30 Days. Refills: 11. ezetimibe (Zetia 10 mg oral tablet)1 tab(s) by mouth once a day. Refills: 3. famotidine (Pepcid 20 mg oral tablet)1 tab(s) by mouth once a day for 7 Days. Refills: 0. gabapentin (gabapentin 100 mg oral capsule)1 cap by mouth two (2) times a day for 30 Days. Refills:5. hydrALAZINE (hydrALAZINE 100 mg oral tablet)1 tab(s) by mouth three (3) times a day for 30 Days. Refills: 11. insulin glargine (Toujeo Max SoloStar 300 units/mL subcutaneous solution)20 unit(s) Subcutaneous once a day for 30 Days. Refills: 1. lactobacillus acidophilus (Acidophilus Probiotic Blend oral capsule)1 cap by mouth once a day. Refills: 3. melatonin (melatonin 10 mg oral tablet)1 tab(s) by mouth daily at bedtime as needed as needed for insomnia for 30 Days. Refills: 6. multivitamin (Nephro-Todd oral tablet)1 tab(s) by mouth once a day. potassium chloride (potassium chloride 10 mEq oral capsule, extended release)1 cap by mouth two (2)times a day. Refills: 3. torsemide (torsemide 100 mg oral tablet)0.5 tab(s) by mouth two (2) times a day for 90 Days. Refills: 3. Follow Up Follow Up with Follow up with primary care provider When Follow Up Appointments No qualifying data available. Follow Up Labs/Studies Discharge Labs No Follow-up Labs Discharge Studies No Follow-up Studies Discharge Diet No qualifying data available. Discharge Activity No qualifying data available. Readmission Risk/Palliative Score No qualifying data available. Digitally Signed by JAY CANELA MD on 02/25/2022 02:00 PM [id number] Evaluation + Plan noteExtracted from: Title:Preprocedure HP Update Author:JENNY GODOY, BETI GREGORY Date:02/25/22 IR PREPROCEDURE H&P UPDATE IF A HISTORY AND PHYSICAL EXAMINATION HAS BEEN COMPLETED PRIOR TO ADMISSION TO THE HOSPITAL, AN UPDATED EXAMINATION MUST BE COMPLETED AND DOCUMENTED WITHIN 24 HOURS AFTER ADMISSION OR REGISTRATION BUT BEFORE A SURGICAL PROCEDURE. I have examined the patient, reviewed the H&P, and there are no changes unless noted below: _ The most recent H&P/Office Note was performed on 02/12/2022 and can be found in the [facility] Electronic Medical Records ([place]). Beti Ratliff PA-C Interventional Radiology Pager [phone] IR Dept [id number] Available on InVivioLink Future Appointments Appointment Date:03/19/2022 02:30:00 PM Scheduled Provider: Location:[facility] [place] Appointment Type:DB Diabetic Individual Visit (AOH) Appointment Date:05/21/2022 10:00:00 AM Scheduled Provider:DENISSE SUTTON Location:[facility] Appointment Type:PC OV Future Scheduled Tests Laboratory* Thyroid Stimulating Hormone 06/12/22 * A1C Hemoglobin 06/12/22 * Complete Blood Count 06/12/22 * Lipid Profile 02/28/21 * Lipid Profile 06/12/22 * Vitamin D Level 02/28/21 * Complete Metabolic Panel 06/12/22 Radiology* MA Mammo Screening Bilateral w/ Julien 09/02/21 * XR Shoulder Minimum 2 Views Left 07/31/21 * XR Shoulder Minimum 2 Views Right 08/15/21 [facility] 11-29-2022 Interventional radiology Consult note INTERVENTIONAL RADIOLOGY POST PROCEDURE NOTE DATE: 02/25/2022 13:57:57 NAME: ZAYDA DAVIS 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 Banking Assistant: Dr. Patsy Canela Procedure: _Fistulagram with angioplasty to 6 mm Anesthesia: Local with procedural sedation. Findings: Success. _PTA of two areas of stenosis to 6 mm Estimated Blood Loss: Minimal (Less Than 10 mL). _ Specimen: None. Complications: None. _ Full report with procedural details to follow and will become available under the Radiology tab of Results Review. Please contact for any questions or concerns. Patsy Ivey MD Interventional Radiology IR dept: x [id number] Available on [employer] Digitally Signed by JAY CANELA MD on 02/25/2022 01:58 PM [id number] History and physical note IR PREPROCEDURE H&P UPDATE IF A HISTORY AND PHYSICAL EXAMINATION HAS BEEN COMPLETED PRIOR TO ADMISSION TO THE HOSPITAL, AN UPDATED EXAMINATION MUST BE COMPLETED AND DOCUMENTED WITHIN 24 HOURS AFTER ADMISSION OR REGISTRATION BUT BEFORE A SURGICAL PROCEDURE. I have examined the patient, reviewed the H&P, and there are no changes unless noted below: _ The most recent H&P/Office Note was performed on 02/12/2022 and can be found in the [facility] Electronic Medical Records ([facility]). Beti Ratliff PA-C Interventional Radiology Pager [phone] IR Dept [id number] Available on [employer] Digitally Signed by BETI RATLIFF PA-C on 02/25/2022 11:19 AM [id number] Note ORIGINAL NM MYOCARDIAL SPECT STRESS/REST CLINICAL STATEMENT: multivessel CAD, multiple risks TECHNIQUE: Adenosine dose:55.1 mg Radiopharmaceutical (stress): Tc-99m Sestamibi Dose:26.4 mCi Radiopharmaceutical (rest): Tc-99m Sestamibi Dose:8.6 mCi SPECT acquisition and processing Reconstruction and reorientation of SPECT images into short axis, vertical and horizontal long axisplanes Quantitative LVEF assessment COMPARISON:None REPORT: Low-dose CT scan shows diffuse coronary artery calcifications. Rotating planar images show no significant patient motion artifact or extra cardiac uptake of radiotracer. Post stress myocardial perfusion images showed moderate severe perfusion defect at the inferior wall and moderate severe perfusion defect at mid basal anterior wall, moderate-severe perfusion defect at apical lateral wall, severe perfusion defect at mid basal inferior septal Resting myocardial perfusion images showed similar perfusion at anterior wall and improved perfusion at the apical lateral wall and inferior wall With attenuation correction perfusion at inferior wall improved, anterior wall improved at mismatchat apical lateral wall persisted SPECT images show universal wall motion and thickening. LVEF estimated at 61%. EDV 115 mL. Tid Ratio 1.14 IMPRESSION: 1. Suggestive moderate size moderate severity ischemia at the inferior wall fixed perfusion defect at anterior wall most likely due to breast attenuation artifact 2. No infarct 3. Normal LVEF estimated at 61% with normal wall motion and wall thickening 4. No prior studies for comparison Interpreted By: Paul Pal Preliminary Report By: PATSY LIM Electronically Signed By: Paul Pal Dictated Date: 01/10/2022 12:10:59 PM Prelim Date: 01/10/2022 12:16:10 PM Sign Date: 01/10/2022 4:23:30 PM Ordering Provider:[facility]10-14-2022 Note ORIGINAL NM MYOCARDIAL SPECT STRESS/REST CLINICAL STATEMENT: multivessel CAD, multiple risks TECHNIQUE: Adenosine dose:55.1 mg Radiopharmaceutical (stress): Tc-99m Sestamibi Dose:26.4 mCi Radiopharmaceutical (rest): Tc-99m Sestamibi Dose:8.6 mCi SPECT acquisition and processing Reconstruction and reorientation of SPECT images into short axis, vertical and horizontal long axisplanes Quantitative LVEF assessment COMPARISON:None REPORT: Low-dose CT scan shows diffuse coronary artery calcifications. Rotating planar images show no significant patient motion artifact or extra cardiac uptake of radiotracer. Post stress myocardial perfusion images showed moderate severe perfusion defect at the inferior wall and moderate severe perfusion defect at mid basal anterior wall, moderate-severe perfusion defect at apical lateral wall, severe perfusion defect at mid basal inferior septal Resting myocardial perfusion images showed similar perfusion at anterior wall and improved perfusion at the apical lateral wall and inferior wall With attenuation correction perfusion at inferior wall improved, anterior wall improved at mismatchat apical lateral wall persisted SPECT images show universal wall motion and thickening. LVEF estimated at 61%. EDV 115 mL. Tid Ratio 1.14 IMPRESSION: 1. Suggestive moderate size moderate severity ischemia at the inferior wall fixed perfusion defect at anterior wall most likely due to breast attenuation artifact 2. No infarct 3. Normal LVEF estimated at 61% with normal wall motion and wall thickening 4. No prior studies for comparison Interpreted By: Paul Pal Preliminary Report By: PATSY LIM Electronically Signed By: Paul Pal Dictated Date: 01/10/2022 12:10:59 PM Prelim Date: 01/10/2022 12:16:10 PM Sign Date: 01/10/2022 4:23:30 PM Ordering Provider:[facility]10-14-2022 Note Procedure: Adenosine Cardiac Stress Test, EKG Portion: Date of procedure: 01/10/22 Patient underwent a pharmacologic stress test using adenosine. Total adenosine dose of 55.5 mg was given as infusion. The patient had a baseline heart rate of 60 bpm, which peaked at 71 bpm. The patient had a baseline blood pressure of 172/77 mmHg and and it changed to 107/58 mmHg after the adenosine administration. The patient did experience shortness of breath and chest pain, which resolved at the end of the test. The patient's baseline EKG showed sinus rhythm with first-degree AV block. During the stress, therewere no EKG changes suggestive of ischemia. Impression: EKG portion of the adenosine stress test is negative for inducible ischemia. Results of the nuclear portion of the stress test will be reported separately. See addendum to this note by the attending physician for additional comments. Digitally Signed by TOD PARK MD on 01/10/2022 02:38 PM Digitally Signed by PAUL PAL MD [id number] Hospital Discharge instructions Patient Education 12/15/2021 13:38:12 COVID-19 Frequently Asked Questions COVID-19 Frequently Asked Questions COVID-19 (coronavirus disease) is an infection that is caused by a large family of viruses. Some viruses cause illness in people and others cause illness in animals like camels, cats, and bats. In some cases, the viruses that cause illness in animals can spread to humans. Where did the coronavirus come from? In February 2019, [place] told the World Health Organization (WHO) of several cases of lung disease (human respiratory illness). These cases were linked to an open seafood and livestock market in the city of [place]. The link to the seafood and livestock market suggests that the virus may have spread from animals to humans. However, since that first outbreak in February, the virus has also been shownto spread from person to person. What is the name of the disease and the virus? Disease name Early on, this disease was called novel coronavirus. This is because scientists determined that thedisease was caused by a new (novel) respiratory virus. The World Health Organization (WHO) has now named the disease COVID-19, or coronavirus disease. Virus name The virus that causes the disease is called severe acute respiratory syndrome coronavirus 2 (SARS-CoV-2). More information on disease and virus naming World Health Organization (WHO): www.who.int/emergencies/diseases/isljc-shbnaiiajiq-1260/technical-g uidance/bmxpyu-pam-dbcfjzgqlix-disease-(covid-2019)-sit-utm-ccalx-zcsi-ueicev-xf Who is at risk for complications from coronavirus disease? Some people may be at higher risk for complications from coronavirus disease. This includes older adults and people who have chronic diseases, such as heart disease, diabetes, and lung disease. If you are at higher risk for complications, take these extra precautions: Avoid close contact with people who are sick or have a fever or cough. Stay at least 3 6 ft (1 2 m)away from them, if possible. Wash your hands often with soap and water for at least 20 seconds. Avoid touching your face, mouth, nose, or eyes. Keep supplies on hand at home, such as food, medicine, and cleaning supplies. Stay home as much as possible. Avoid social gatherings and travel. How does coronavirus disease spread? The virus that causes coronavirus disease spreads easily from person to person (is contagious). There are also cases of community-spread disease. This means the disease has spread to: People who have no known contact with other infected people. People who have not traveled to areas where there are known cases. It appears to spread from one person to another through droplets from coughing or sneezing. Can I get the virus from touching surfaces or objects? There is still a lot that we do not know about the virus that causes coronavirus disease. Scientists are basing a lot of information on what they know about similar viruses, such as: Viruses cannot generally survive on surfaces for long. They need a human body (host) to survive. It is more likely that the virus is spread by close contact with people who are sick (direct contact), such as through: ?Shaking hands or hugging. ?Breathing in respiratory droplets that travel through the air. This can happen when an infected person coughs or sneezes on or near other people. It is less likely that the virus is spread when a person touches a surface or object that has the virus on it (indirect contact). The virus may be able to enter the body if the person touches a surface or object and then touches his or her face, eyes, nose, or mouth. Can a person spread the virus without having symptoms of the disease? It may be possible for the virus to spread before a person has symptoms of the disease, but this ismost likely not the main way the virus is spreading. It is more likely for the virus to spread by being in close contact with people who are sick and breathing in the respiratory droplets of a sick person's cough or sneeze. What are the symptoms of coronavirus disease? Symptoms vary from person to person and can range from mild to severe. Symptoms may include: Fever. Cough. Tiredness, weakness, or fatigue. Fast breathing or feeling short of breath. These symptoms can appear anywhere from 2 to 14 days after you have been exposed to the virus. If you develop symptoms, call your health care provider. People with severe symptoms may need hospital care. If I am exposed to the virus, how long does it take before symptoms start? Symptoms of coronavirus disease may appear anywhere from 2 to 14 days after a person has been exposed to the virus. If you develop symptoms, call your health care provider. Should I be tested for this virus? Your health care provider will decide whether to test you based on your symptoms, history of exposure, and your risk factors. How does a health care provider test for this virus? Health care providers will collect samples to send for testing. Samples may include: Taking a swab of fluid from the nose. Taking fluid from the lungs by having you cough up mucus (sputum) into a sterile cup. Taking a blood sample. Taking a stool or urine sample. Is there a treatment or vaccine for this virus? Currently, there is no vaccine to prevent coronavirus disease. Also, there are no medicines like antibiotics or antivirals to treat the virus. A person who becomes sick is given supportive care, which means rest and fluids. A person may also relieve his or her symptoms by using rirq-thp-gzywzjp medicines that treat sneezing, coughing, and runny nose. These are the same medicines that a person takes for the common cold. If you develop symptoms, call your health care provider. People with severe symptoms may need hospital care. What can I do to protect myself and my family from this virus? You can protect yourself and your family by taking the same actions that you would take to prevent the spread of other viruses. Take the following actions: Wash your hands often with soap and water for at least 20 seconds. If soap and water are not available, use alcohol-based hand sales representative electric service. Avoid touching your face, mouth, nose, or eyes. Cough or sneeze into a tissue, sleeve, or elbow. Do not cough or sneeze into your hand or the air. ?If you cough or sneeze into a tissue, throw it away immediately and wash your hands. Disinfect objects and surfaces that you frequently touch every day. Avoid close contact with people who are sick or have a fever or cough. Stay at least 3 6 ft (1 2 m)away from them, if possible. Stay home if you are sick, except to get medical care. Call your health care provider before you get medical care. Make sure your vaccines are up to date. Ask your health care provider what vaccines you need. What should I do if I need to travel? Follow travel recommendations from your local health authority, the CDC, and WHO. Travel information and advice Centers for Disease Control and Prevention (CDC): www.cdc.gov/coronavirus/2019-ncov/travelers/index.html World Health Organization (WHO): www.who.int/emergencies/diseases/mdcej-rcubknmoqeg-4142/travel-advice Know the risks and take action to protect your health You are at higher risk of getting coronavirus disease if you are traveling to areas with an outbreak or if you are exposed to travelers from areas with an outbreak. Wash your hands often and practice good hygiene to lower the risk of catching or spreading the virus. What should I do if I am sick? General instructions to stop the spread of infection Wash your hands often with soap and water for at least 20 seconds. If soap and water are not available, use alcohol-based hand sales representative electric service. Cough or sneeze into a tissue, sleeve, or elbow. Do not cough or sneeze into your hand or the air. If you cough or sneeze into a tissue, throw it away immediately and wash your hands. Stay home unless you must get medical care. Call your health care provider or local health authority before you get medical care. Avoid public areas. Do not take public transportation, if possible. If you can, wear a mask if you must go out of the house or if you are in close contact with someonewho is not sick. Keep your home clean Disinfect objects and surfaces that are frequently touched every day. This may include: ?Counters and tables. ?Doorknobs and light switches. ?Sinks and faucets. ?Electronics such as phones, remote controls, keyboards, computers, and tablets. Wash dishes in hot, soapy water or use a atm technician. Air-dry your dishes. Wash laundry in hot water. Prevent infecting other household members Let healthy household members care for children and pets, if possible. If you have to care for children or pets, wash your hands often and wear a mask. Sleep in a different bedroom or bed, if possible. Do not share personal items, such as razors, toothbrushes, deodorant, lira, brushes, towels, and washcloths. Where to find more information Centers for Disease Control and Prevention (CDC) Information and news updates: www.cdc.gov/coronavirus/2019-ncov World Health Organization (WHO) Information and news updates: www.who.int/emergencies/diseases/zrtwz-yplljdfsnul-1477 Coronavirus health topic: www.who.int/health-topics/coronavirus Questions and answers on COVID-19: www.who.int/news-room/q-a-detail/k-l-lqdvzcxiynvts Global tracker: who.[employer] [place] [employer] (AAP) Information for families: www.healthychildren.org/L[place]ian/health-issues/conditions/chest-lungs/Pages /9535-Tughw-Suhaiqopzmt.aspx The coronavirus situation is changing rapidly. Check your local health authority website or the CDCand WHO websites for updates and news. When should I contact a health care provider? Contact your health care provider if you have symptoms of an infection, such as fever or cough, andyou: ?Have been near anyone who is known to have coronavirus disease. ?Have come into contact with a person who is suspected to have coronavirus disease. ?Have traveled outside of the country. When should I get emergency medical care? Get help right away by calling your local emergency services (911 in the [place] if you have: ?Trouble breathing. ?Pain or pressure in your chest. ?Confusion. ?Blue-tinged lips and fingernails. ?Difficulty waking from sleep. ?Symptoms that get worse. Let the emergency medical personnel know if you think you have coronavirus disease. Summary A new respiratory virus is spreading from person to person and causing COVID-19 (coronavirus disease). The virus that causes COVID-19 appears to spread easily. It spreads from one person to another through droplets from coughing or sneezing. Older adults and those with chronic diseases are at higher risk of disease. If you are at higher risk for complications, take extra precautions. There is currently no vaccine to prevent coronavirus disease. There are no medicines, such as antibiotics or antivirals, to treat the virus. You can protect yourself and your family by washing your hands often, avoiding touching your face, and covering your coughs and sneezes. This information is not intended to replace advice given to you by your health care provider. Make sure you discuss any questions you have with your health care provider. Document Released: 07/12/2019 Document Revised: 07/12/2019 Document Reviewed: 07/12/2019 [employer] Patient Education 2020 [employer]. Follow Up Care 12/13/2021 06:34:45 With:DENISSE SUTTON Address: [place] [address]- [phone] When:5 to 7 days Comments:Follow-up with primary care physician as an outpatient. Call to make an appointment. [facility] 09-18-2022 Note Discharge Instructions Thank you for allowing [facility] to assist you with your healthcare needs. The following is importantdischarge information regarding your hospital visit. Your Care Team DENISSE SUTTON Your Diagnosis Leg pain What to do next Instructions From Your Doctor You were treated for COVID-19 pneumonia. Complete your course of steroids with dexamethasone. Your next dose is on 12/16. You have been given cough medicine to help with sore throat and cough. Follow-up with your primary care physician as an outpatient. Call your doctor or present to the ER for any new or worsening symptoms. Scheduled Follow-Up Appointments Appointment Type When With Where Contact InformationDB Diabetic Individual Visit 12/25/2021 10:00 AM [facility] OV 01/06/2022 03:00 PM DENISSE MCMAHON [facility] Follow Up Appointments Follow Up with DENISSE SUTTON When Within 5 to 7 days Why: Follow-up with primary care physician as an outpatient. Call to make an appointment. Where: [address] [facility], [place] [address]- [phone] The Following Activity and Diet Have Been Ordered for You Discharge Activity - Ordered -- NO activity restrictions, 12/15/21 11:18:00 EDT Discharge Diet - Ordered -- No changes were made to your diet during your hospital stay. Please resume your pre hospitalization diet on discharge., 12/15/21 11:18:00 EDT The Following Equipment Has Been Ordered for You No qualifying data available. The Following Treatments Have Been Ordered for You Discharge Labs No qualifying data available. Discharge Radiology No qualifying data available. Other Therapies No qualifying data available. Post Acute Orders No qualifying data available. Someone Will Contact You Regarding These Home Health Referrals No home referrals have been ordered for you. No one will call you. Allergies NKA Medications Please ask your primary doctor or pharmacist before taking any other medication not listed, including over the counter drugs, herbal medications, vitamins and or supplements as they may interact withyour home medications. What How Much When Why Instructions Last Dose New codeine-guaifenesin (codeine- guaifenesin 7.5 mg-225 mg/ 5 mL oral liquid) 5 Milliliter by mouth Every 6 hours as needed for as needed for sore throat and cough Duration: 7 Days Printed Prescription New dexamethasone (dexamethasone 6 mg oral tablet) 1 tab(s) by mouth Once a day Duration: 7 Days Printed Prescription New famotidine (Pepcid 20 mg oral tablet) 1 tab(s) by mouth Once a day Duration: 7 Days Printed Prescription Unchanged allopurinol (allopurinol 100 mg oral tablet) 1 tab(s) by mouth Once a day Unchanged amLODIPine (amLODIPine 10 mg oral tablet) 1 tab(s) by mouth Once a day Unchanged apixaban (Eliquis 5 mg oral tablet) 1 tab(s) by mouth Two (2) times a day Unchanged aspirin (aspirin 81 mg oral delayed release tablet) 1 tab(s) by mouth Once a day Unchanged atorvastatin (atorvastatin 80 mg oral tablet) 1 tab(s) by mouth Once a day Unchanged carvedilol (Coreg 6.25 mg oral tablet) 1 tab(s) by mouth Two (2) times a day Duration: 30 Days Unchanged diclofenac topical (diclofenac 1% topical gel) 1 application Topical Four (4) times a day Unchanged DME (Blood Glucose Test Machine) See instructions Brand type per insurance or patient preference. Dx: E11.9, pt insulin dependent, test 4times/ day Unchanged DME (Blood Glucose Test Machine) See instructions Use as directed Brand type per insurance or patient preference Unchanged DME (Blood Glucose Test Strips) See instructions 1 bottle of 100 ---Test 4times/ day--Pt has accucheck guide dx E11.9 Pt insulin dependent. Unchanged DME (DME MISCellaneous) See instructions 2 pairs of compression stockings. Dx CHF. Unchanged DME (Lancets) See instructions qs 1 month supply--test four times daily--has accucheck guide dx E11.9, insulin dependent Unchanged docusate (DOK 100 mg oral capsule) 1 cap by mouth Two (2) times a day as needed for as needed for constipation Unchanged escitalopram (Lexapro 20 mg oral tablet) 1 tab(s) by mouth Once a day Duration: 30 Days Unchanged gabapentin (gabapentin 100 mg oral capsule) 1 cap by mouth Three (3) times a day Leg pain Duration: 30 Days Unchanged hydrALAZINE (hydrALAZINE 100 mg oral tablet) 1 tab(s) by mouth Three (3) times a day Duration: 30 Days Unchanged insulin glargine (Toujeo Max SoloStar 300 units/ mL subcutaneous solution) 20 unit(s) Subcutaneous Once a day Duration: 30 Days Unchanged insulin lispro (HumaLOG) (HumaLOG KwikPen 100 units/ mL injectable PEN) 5 unit(s) Subcutaneous Two (2) times daily before meals Unchanged lactobacillus acidophilus (Acidophilus Probiotic Blend oral capsule) 1 cap by mouth Once a day Unchanged melatonin (melatonin 10 mg oral tablet) 1 tab(s) by mouth Daily at bedtime as needed for as needed for insomnia Duration: 30 Days Unchanged Misc Medication (Vitamin D) Unchanged multivitamin (Nephro-Todd oral tablet) 1 tab(s) by mouth Once a day Unchanged ondansetron (ondansetron 4 mg oral tablet, disintegrating) 1 tab(s) by mouth Every 8 hours as needed for as needed for nausea/vomiting Nausea and vomiting in adult Duration: 5 Days Unchanged potassium chloride (potassium chloride 10 mEq oral capsule, extended release) 1 cap by mouth Two (2) times a day Unchanged torsemide (torsemide 100 mg oral tablet) 0.5 tab(s) by mouth Two (2) times a day Duration: 90 Days Please take this list to your next doctor s visit. Bring all medications you take, including over the counter medications, herbals and other supplements with you to your doctor s visit. Patients and families are reminded to discard old lists and to update any records with all medication providers or retail pharmacies. Education Materials COVID-19 Frequently Asked Questions COVID-19 (coronavirus disease) is an infection that is caused by a large family of viruses. Some viruses cause illness in people and others cause illness in animals like camels, cats, and bats. In some cases, the viruses that cause illness in animals can spread to humans. Where did the coronavirus come from? In February 2019, [place] told the World Health Organization (WHO) of several cases of lung disease (human respiratory illness). These cases were linked to an open seafood and livestock market in the city of [place]. The link to the seafood and livestock market suggests that the virus may have spread from animals to humans. However, since that first outbreak in February, the virus has also been shownto spread from person to person. What is the name of the disease and the virus? Disease name Early on, this disease was called novel coronavirus. This is because scientists determined that thedisease was caused by a new (novel) respiratory virus. The World Health Organization (WHO) has now named the disease COVID-19, or coronavirus disease. Virus name The virus that causes the disease is called severe acute respiratory syndrome coronavirus 2 (SARS-CoV-2). More information on disease and virus naming World Health Organization (WHO): www.who.int/emergencies/diseases/fxxzd-yntmolearax-2997/technical-g uidance/ztxgku-zwp-dpxcksptsyo-disease-(covid-2019)-yqt-ujd-qfwkm-hgvt-fjnzbm-sl Who is at risk for complications from coronavirus disease? Some people may be at higher risk for complications from coronavirus disease. This includes older adults and people who have chronic diseases, such as heart disease, diabetes, and lung disease. If you are at higher risk for complications, take these extra precautions: Avoid close contact with people who are sick or have a fever or cough. Stay at least 3 6 ft (1 2 m)away from them, if possible. Wash your hands often with soap and water for at least 20 seconds. Avoid touching your face, mouth, nose, or eyes. Keep supplies on hand at home, such as food, medicine, and cleaning supplies. Stay home as much as possible. Avoid social gatherings and travel. How does coronavirus disease spread? The virus that causes coronavirus disease spreads easily from person to person (is contagious). There are also cases of community-spread disease. This means the disease has spread to: People who have no known contact with other infected people. People who have not traveled to areas where there are known cases. It appears to spread from one person to another through droplets from coughing or sneezing. Can I get the virus from touching surfaces or objects? There is still a lot that we do not know about the virus that causes coronavirus disease. Scientists are basing a lot of information on what they know about similar viruses, such as: Viruses cannot generally survive on surfaces for long. They need a human body (host) to survive. It is more likely that the virus is spread by close contact with people who are sick (direct contact), such as through: ? Shaking hands or hugging. ? Breathing in respiratory droplets that travel through the air. This can happen when an infected person coughs or sneezes on or near other people. It is less likely that the virus is spread when a person touches a surface or object that has the virus on it (indirect contact). The virus may be able to enter the body if the person touches a surface or object and then touches his or her face, eyes, nose, or mouth. Can a person spread the virus without having symptoms of the disease? It may be possible for the virus to spread before a person has symptoms of the disease, but this ismost likely not the main way the virus is spreading. It is more likely for the virus to spread by being in close contact with people who are sick and breathing in the respiratory droplets of a sick person's cough or sneeze. What are the symptoms of coronavirus disease? Symptoms vary from person to person and can range from mild to severe. Symptoms may include: Fever. Cough. Tiredness, weakness, or fatigue. Fast breathing or feeling short of breath. These symptoms can appear anywhere from 2 to 14 days after you have been exposed to the virus. If you develop symptoms, call your health care provider. People with severe symptoms may need hospital care. If I am exposed to the virus, how long does it take before symptoms start? Symptoms of coronavirus disease may appear anywhere from 2 to 14 days after a person has been exposed to the virus. If you develop symptoms, call your health care provider. Should I be tested for this virus? Your health care provider will decide whether to test you based on your symptoms, history of exposure, and your risk factors. How does a health care provider test for this virus? Health care providers will collect samples to send for testing. Samples may include: Taking a swab of fluid from the nose. Taking fluid from the lungs by having you cough up mucus (sputum) into a sterile cup. Taking a blood sample. Taking a stool or urine sample. Is there a treatment or vaccine for this virus? Currently, there is no vaccine to prevent coronavirus disease. Also, there are no medicines like antibiotics or antivirals to treat the virus. A person who becomes sick is given supportive care, which means rest and fluids. A person may also relieve his or her symptoms by using wnse-scv-jcjtaky medicines that treat sneezing, coughing, and runny nose. These are the same medicines that a person takes for the common cold. If you develop symptoms, call your health care provider. People with severe symptoms may need hospital care. What can I do to protect myself and my family from this virus? You can protect yourself and your family by taking the same actions that you would take to prevent the spread of other viruses. Take the following actions: Wash your hands often with soap and water for at least 20 seconds. If soap and water are not available, use alcohol-based hand sales representative electric service. Avoid touching your face, mouth, nose, or eyes. Cough or sneeze into a tissue, sleeve, or elbow. Do not cough or sneeze into your hand or the air. ? If you cough or sneeze into a tissue, throw it away immediately and wash your hands. Disinfect objects and surfaces that you frequently touch every day. Avoid close contact with people who are sick or have a fever or cough. Stay at least 3 6 ft (1 2 m)away from them, if possible. Stay home if you are sick, except to get medical care. Call your health care provider before you get medical care. Make sure your vaccines are up to date. Ask your health care provider what vaccines you need. What should I do if I need to travel? Follow travel recommendations from your local health authority, the CDC, and WHO. Travel information and advice Centers for Disease Control and Prevention (CDC): www.cdc.gov/coronavirus/2019-ncov/travelers/index.html World Health Organization (WHO): www.who.int/emergencies/diseases/qfaqd-aencvcpfzpj-2387/travel-advice Know the risks and take action to protect your health You are at higher risk of getting coronavirus disease if you are traveling to areas with an outbreak or if you are exposed to travelers from areas with an outbreak. Wash your hands often and practice good hygiene to lower the risk of catching or spreading the virus. What should I do if I am sick? General instructions to stop the spread of infection Wash your hands often with soap and water for at least 20 seconds. If soap and water are not available, use alcohol-based hand sales representative electric service. Cough or sneeze into a tissue, sleeve, or elbow. Do not cough or sneeze into your hand or the air. If you cough or sneeze into a tissue, throw it away immediately and wash your hands. Stay home unless you must get medical care. Call your health care provider or local health authority before you get medical care. Avoid public areas. Do not take public transportation, if possible. If you can, wear a mask if you must go out of the house or if you are in close contact with someonewho is not sick. Keep your home clean Disinfect objects and surfaces that are frequently touched every day. This may include: ? Counters and tables. ? Doorknobs and light switches. ? Sinks and faucets. ? Electronics such as phones, remote controls, keyboards, computers, and tablets. Wash dishes in hot, soapy water or use a atm technician. Air-dry your dishes. Wash laundry in hot water. Prevent infecting other household members Let healthy household members care for children and pets, if possible. If you have to care for children or pets, wash your hands often and wear a mask. Sleep in a different bedroom or bed, if possible. Do not share personal items, such as razors, toothbrushes, deodorant, lira, brushes, towels, and washcloths. Where to find more information Centers for Disease Control and Prevention (CDC) Information and news updates: www.cdc.gov/coronavirus/2019-ncov World Health Organization (WHO) Information and news updates: www.who.int/emergencies/diseases/sdjoi-vuymfzhmeya-3431 Coronavirus health topic: www.who.int/health-topics/coronavirus Questions and answers on COVID-19: www.who.int/news-room/q-a-detail/n-p-hmudhzrrlusht Global tracker: who.[employer] [place] [employer] (AAP) Information for families: www.healthychildren.org/Lithuanian/health-issues/conditions/chest-lungs/Pages /6584-Ldbrs-Ursygkgpvsq.aspx The coronavirus situation is changing rapidly. Check your local health authority website or the CDCand WHO websites for updates and news. When should I contact a health care provider? Contact your health care provider if you have symptoms of an infection, such as fever or cough, andyou: ? Have been near anyone who is known to have coronavirus disease. ? Have come into contact with a person who is suspected to have coronavirus disease. ? Have traveled outside of the country. When should I get emergency medical care? Get help right away by calling your local emergency services (911 in the [place] if you have: ? Trouble breathing. ? Pain or pressure in your chest. ? Confusion. ? Blue-tinged lips and fingernails. ? Difficulty waking from sleep. ? Symptoms that get worse. Let the emergency medical personnel know if you think you have coronavirus disease. Summary A new respiratory virus is spreading from person to person and causing COVID-19 (coronavirus disease). The virus that causes COVID-19 appears to spread easily. It spreads from one person to another through droplets from coughing or sneezing. Older adults and those with chronic diseases are at higher risk of disease. If you are at higher risk for complications, take extra precautions. There is currently no vaccine to prevent coronavirus disease. There are no medicines, such as antibiotics or antivirals, to treat the virus. You can protect yourself and your family by washing your hands often, avoiding touching your face, and covering your coughs and sneezes. This information is not intended to replace advice given to you by your health care provider. Make sure you discuss any questions you have with your health care provider. Document Released: 07/12/2019 Document Revised: 07/12/2019 Document Reviewed: 07/12/2019 Elsevier Patient Education 2020 [employer] Additional Information VACCINATE! IT SAVES LIVES! Members of the community who have not yet received the COVID-19 vaccine and would like to receive it can visit one of [facility] vaccine clinics. There are many vaccine clinic locations within the [facility]. For locations and available times, please visit https://gettheshot.coronavirus.[place].gov/. It is important to note that some COVID mobile vaccine clinics are held outdoors and may be canceled in rainy or stormy conditions. To learn more about pediatric vaccinations (ages 5-11), we invite you to visit the [facility] webpage. https://www.[employer].org/pages/2683-Mjlvs-Ummitwlbrgz-Uggosqxcmw-Xmuhx-Ibi stions.htmlTo learn more about the COVID-19 vaccine, we invite you to visit the [employer] website for a list of frequently asked questions. https://[employer]/assets/Kainabpi-wyu-Aypfiptw/jqvju-Voisxgv-Xjsymestcq _Asked-Questions.pdf [facility] Patient Portal Access Instructions: Stay connected with your healthcare team and access your personal medical information anytime with the [facility] Patient Portal.If you would like a full copy of your medical records, please contact the [facility] Medical Records Department, Thursday through Thursday between 8a.m. and 4:30p.m. Please follow the directions below to access the portal: 1.Access the email account you provided upon registration to the hospital.2.Look for an invitation email from [facility].3.Open the email and access the invitation link: Accept Invitation to [facility]4.Fill in the required gilmore to create your account. Sign into www.[employer] with your username and password that you created in the above steps to stay up to date. You can then view a summary of results, a summary of your visits, and the ability to download your summaries to your computer or send the information securely to a physician. Remember that your healthcare information is confidential, so carefully consider who you will allow to register on the [facility] Patient Portal for access to your information. You can also access the [facility] Patient Portal on the [employer] toby. Simply click on Health Records under [employer] and then click on the [employer] logo. HOW TO SAFELY DISPOSE OF PRESCRIPTION MEDICATIONS Please use one of the following methods to safely dispose of your unused medications. 1.Use a drug disposal kit: the drug disposal pouch allows you to safely discard your old and unuseddrugs. Ask your nurse to give you one when you are discharged.2.Visit a local take-back location: Many local pharmacies and police departments have programs that collect old and unwanted prescriptiondrugs. Call your local pharmacy or go to http://britebill.[employer]/4F0Ku3f to find one close to you.3.Make use of household items: Use cat litter or old coffee grounds to dispose medications if other options arenot available. Mix your drugs with these household products, seal them in an airtight container andthrow it into the garbage. Call [facility]: [phone] to be sure your drugs can be disposed of in this way. Some medicines may require a different approach.4.Never flush your medications down the toilet. IF YOU HAVE BEEN PRESCRIBED AN OPIOID FOR PAIN If you have been prescribed an opioid (such as hydrocodone, oxycodone or morphine), it is critical to understand the possible side effects and risks of opioid pain medications. Even when taken as directed, opioids can have several side effects including: Tolerance, meaning you might need to take more of a medication for the same pain relief. Nausea, vomiting and/or constipation. Sleepiness, dizziness, dry mouth, confusion, depression or itching. Physical dependence, meaning you have withdrawal symptoms when a medication is stopped, can develop within a few days. KNOW YOUR RESPONSIBILITIES It is important to know exactly how much and how often to take the opioid pain medications you are prescribed. Never take opioids in higher amounts or more often than prescribed. Do not combine opioids with alcohol or other drugs that cause drowsiness, such as benzodiazepines, also known as benzos, including diazepam and alprazolam, muscle relaxants or sleep aids. Never sell or share prescription opioids. This is illegal. Store opioids in a secure place and out of reach of others (including children, family, friends and visitors). The last page of this document has been signed and retained as a CHART COPY. Signatures Patient Education Materials COVID-19 Frequently Asked Questions Medication Leaflets My discharge plan and instructions have been reviewed and explained to me and I,ARASH ZAYDA Tiwari understand my current condition and have read and understand these discharge instructions. I have received a written copy of the plan/instructions. If I have questions, I am aware that I should contactmy doctor. Patient/Identity Management Developer Signature: Date/Time: Relationship to Patient: Witness Name/Signature: [facility]Time[id number] Discharge summary Date of Service December 15, 2021 Discharge Diagnosis Acute hypoxic respiratory failure COVID-19 pneumonia ESRD on hemodialysis Hypertension Hyperlipidemia Diabetes mellitus type 2 Hospital Course 85-year-old female with past medical history significant for hypertension, hyperlipidemia, coronaryartery disease, congestive heart failure, ESRD on hemodialysis, diabetes mellitus type 2 who initially presented on 12/13 no shortness of breath. Patient indicated that prior to presentation she had been experiencing sore throat, nausea, emesis. She noted that she started experiencing progressive worsening shortness of breath and cough and therefore presented to the ER for evaluation. Patient COVID-19 positive. Patient had acute hypoxic respiratory failure secondary to COVID 19 pneumonia presentation. Initial chest x-ray demonstrated patchy bibasilar alveolar opacities likely from edema versusinfectious or inflammatory process such as COVID-pneumonia. No remdesivir due to renal function. Patient required up to 6 L oxygen via nasal cannula. She was weaned down to room air during hospitalization. Patient discharged in improved condition. Patient to complete course of steroids as an outpatient. Attempted to update patient's sister per her request but unable to reach her. Patient discharged in improved condition to home. Patient to follow with primary care physician as an outpatient. Allergies NKA Procedures No procedures Consults Consult to Physician - Ordered -- 12/13/21 16:44:00 EDT, STEVIE PEREZ MD, Routine, ESRD on HD Imaging Results and Diagnostics (12/13/2021 04:56 EDT XR Chest 1 View) IMPRESSION: 1. Mild cardiomegaly as above. 2. Patchy bibasilar alveolar opacities, likely from edema versus infectious or inflammatory process such as COVID pneumonia. 3. Small bilateral pleural effusions suspected. [1] Physical Exam Vitals and Measurements T: 36.7 C (Oral) TMIN: 36.4 C (Oral) TMAX: 36.8 C (Oral) HR: 58(Monitored) RR: 16 BP: 124/56 SpO2: 94% WT: 97.4 kg Weight Dosing Weight: 97.4 kg (12/14/21) Dosing Weight: 99.7 kg (12/14/21) General Appearance: Alert, oriented, well appearing Head: Normocephalic, atraumatic EENT: PERRLA, EOMI. Neck: Supple, no JVD Cardiac: Regular rate and rhythm. Normal S1/S2. No murmurs appreciated. Lungs: Lungs clear to auscultation bilaterally. Abdomen: Soft, nontender, nondistended. BS *4. Musculoskeletal: Strength 5/5 bilaterally in upper and lower extremities. Extremities: No LE edema. Neurological: AO*3, CN 2-12 intact. Skin: No excoriations, lacerations, rash, or erythema Psychiatric: Normal affect Pending Labs and Studies No pending labs or studies Code Status Code Status - Ordered -- 12/14/21 16:40:00 EDT, Full Code, Constant Order Admission Date December 13, 2021 Discharge Date December 15, 2021 Patient Instructions You were treated for COVID-19 pneumonia. Complete your course of steroids with dexamethasone. Your next dose is on 12/16. You have been given cough medicine to help with sore throat and cough. Follow-up with your primary care physician as an outpatient. Call your doctor or present to the ER for any new or worsening symptoms. Medications New Prescription codeine-guaifenesin (codeine-guaifenesin 7.5 mg-225 mg/5 mL oral liquid)5 Milliliter by mouth every6 hours as needed as needed for sore throat and cough for 7 Days. Refills: 0. dexamethasone (dexamethasone 6 mg oral tablet)1 tab(s) by mouth once a day for 7 Days. Refills: 0. famotidine (Pepcid 20 mg oral tablet)1 tab(s) by mouth once a day for 7 Days. Refills: 0. Unchanged allopurinol (allopurinol 100 mg oral tablet)1 tab(s) by mouth once a day. amLODIPine (amLODIPine 10 mg oral tablet)1 tab(s) by mouth once a day. Refills: 11. apixaban (Eliquis 5 mg oral tablet)1 tab(s) by mouth two (2) times a day. Refills: 11. aspirin (aspirin 81 mg oral delayed release tablet)1 tab(s) by mouth once a day. atorvastatin (atorvastatin 80 mg oral tablet)1 tab(s) by mouth once a day. Refills: 0. carvedilol (Coreg 6.25 mg oral tablet)1 tab(s) by mouth two (2) times a day for 30 Days. Refills: 5. diclofenac topical (diclofenac 1% topical gel)1 application Topical four (4) times a day. Refills: 3. DME (Blood Glucose Test Machine)Brand type per insurance or patient preference. Dx: E11.9, pt insulin dependent, test 4times/day. Refills: 0. DME (Blood Glucose Test Machine)Use as directed Brand type per insurance or patient preference. Refills: 0. DME (Blood Glucose Test Strips)1 bottle of 100 ---Test 4times/day--Pt has accucheck guide dx E11.9 Pt insulin dependent.. Refills: 11. DME (DME MISCellaneous)2 pairs of compression stockings. Dx CHF.. Refills: 0. DME (Lancets)qs 1 month supply--test four times daily--has accucheck guide dx E11.9, insulin dependent. Refills: 11. docusate (DOK 100 mg oral capsule)1 cap by mouth two (2) times a day as needed as needed for constipation. Refills: 3. escitalopram (Lexapro 20 mg oral tablet)1 tab(s) by mouth once a day for 30 Days. Refills: 1. gabapentin (gabapentin 100 mg oral capsule)1 cap by mouth three (3) times a day for 30 Days. Refills: 5. hydrALAZINE (hydrALAZINE 100 mg oral tablet)1 tab(s) by mouth three (3) times a day for 30 Days. Refills: 11. insulin glargine (Toujeo Max SoloStar 300 units/mL subcutaneous solution)20 unit(s) Subcutaneous once a day for 30 Days. Refills: 1. insulin lispro (HumaLOG) (HumaLOG KwikPen 100 units/mL injectable PEN)5 unit(s) Subcutaneous two (2) times daily before meals. Refills: 6. lactobacillus acidophilus (Acidophilus Probiotic Blend oral capsule)1 cap by mouth once a day. Refills: 3. melatonin (melatonin 10 mg oral tablet)1 tab(s) by mouth daily at bedtime as needed as needed for insomnia for 30 Days. Refills: 6. Misc Medication (Vitamin D) multivitamin (Nephro-Todd oral tablet)1 tab(s) by mouth once a day. ondansetron (ondansetron 4 mg oral tablet, disintegrating)1 tab(s) by mouth every 8 hours as neededas needed for nausea/vomiting for 5 Days. Refills: 0. potassium chloride (potassium chloride 10 mEq oral capsule, extended release)1 cap by mouth two (2)times a day. Refills: 3. torsemide (torsemide 100 mg oral tablet)0.5 tab(s) by mouth two (2) times a day for 90 Days. Refills: 3. Follow Up Follow Up with DENISSE SUTTON When Within 5 to 7 days Why: Follow-up with primary care physician as an outpatient. Call to make an appointment. Where: [address] [facility] [place] [address]- [phone] Discharge Diet Discharge Diet - Ordered -- No changes were made to your diet during your hospital stay. Please resume your pre hospitalization diet on discharge., 12/15/21 11:18:00 EDT Discharge Activity Discharge Activity - Ordered -- NO activity restrictions, 12/15/21 11:18:00 EDT Condition on Discharge Improved Discharge Disposition Home Information Provided To Patient Time Spent >30 minutes [1] XR Chest 1 View; DIAMOND DELA CRUZ MD 12/13/2021 04:56 EDT Digitally Signed by JUANITA COLLADO MD on 12/15/2021 11:27 PM [id number] Nephrology Progress note Subjective Patient was seen. Chart was reviewed. Discussed with nursing. Objective Vitals and Measurements T: 36.7 C (Oral) TMIN: 36.4 C (Oral) TMAX: 36.8 C (Oral) HR: 58(Monitored) RR: 16 BP: 124/56 SpO2: 94% WT: 97.4 kg Intake and Output 7AM Yesterday to 7AM Today Intake and Output (Last 24 hours) Intake Oral Intake 480.00 Output Urine Voided 1.00 Hemodialysis 2500.00 Stool Count 1.00 Emesis Count 0.00 Total Summary Total Intake 480.00 Total Output 2501.00 Fluid Balance -2020. Physical Exam Gen: comfortable, No sign of any acute distress HEENT: No pallor, No icterus, no JVD, no carotid bruit Lungs: Clear to auscultation, good air entry CVS: Regular rate and rhythm, no murmur, no rubs Abd: Soft, nontender, no organomegaly, No flank pain Neuro: Alert, no deficits Ext: No edema Left upper arm AV fistula has a good bruit and thrill Weight Dosing Weight: 97.4 kg (12/14/21) Dosing Weight: 99.7 kg (12/14/21) Medications Medications (18) Active Scheduled: (15) albuterol-ipratropium CFC free 100 mcg-20 mcg/inh aerosol soln 1 puff(s), Inhalation, QIDRT allopurinol 100 mg tablet 100 mg 1 tab(s), Oral, qDay amLODIPine 10 mg tablet 10 mg 1 tab(s), Oral, qDay apixaban 5 mg tablet 5 mg 1 tab(s), Oral, BID aspirin 81 mg EC 81 mg 1 tab(s), Oral, qDay atorvastatin 80 mg tablet 80 mg 1 tab(s), Oral, qDay carvedilol 6.25 mg tablet 6.25 mg 1 tab(s), Oral, BID dexamethasone 4 mg/1 mL solution 6 mg 1.5 mL, IV Push, qDay escitalopram 20 mg tablet 20 mg 1 tab(s), Oral, qDay famotidine 20 mg tablet 20 mg 1 tab(s), Oral, qDay gabapentin 100 mg Capsule 100 mg 1 cap(s), Oral, TID hydralazine 50 mg Tablet 100 mg 2 tab(s), Oral, TID insulin glargine 15 unit(s) 0.15 mL, Subcutaneous (INT), qDay insulin lispro 100 units/mL Soln (3 mL) Give 0-10 units/dose, Subcutaneous, achs torsemide 20 mg tablet 50 mg 2.5 tab(s), Oral, BID Continuous: (0) PRN: (3) albuterol-ipratropium CFC free 100 mcg-20 mcg/inh aerosol soln 1 puff(s), Inhalation, q4hRT docusate sodium 100 mg Capsule 100 mg 1 cap(s), Oral, BID ondansetron 2 mg/ 1 mL 2 mL INJ 4 mg 2 mL, IV Push, q6h Lab Results 12/15 07:04 WBC: 11.7 H Hgb: 9.5 L Hct: 27.8 L Platelet: 139 L Neutrophil %: 87.7 H Glucose Level: 141 H Glucose Level: 136 H Sodium Level: 135 L Sodium Level: 135 L Potassium Level: 3.6 Potassium Level: 3.5 BUN: 61.0 H BUN: 57.0 H Creatinine Lvl (s): 3.75 H Creatinine Lvl (s): 3.72 H 12/14 07:18 WBC: 10.9 H Hgb: 9.7 L Hct: 28.0 L Platelet: 138 L Neutrophil %: 93.5 H Glucose Level: 290 H Sodium Level: 133 L Potassium Level: 4.0 BUN: 95.0 H Creatinine Lvl (s): 5.20 H EKG No qualifying data available. Assessment/Plan 1. ESRD on dialysis Thursday 2. COVID-19 3. Anemia 4. Hypertension Renal function stable. Patient volume status is stable. We will plan for hemodialysis on Thursday. Disposition as per primary service. Digitally Signed by STEVIE PEREZ MD on 12/15/2021 10:14 AM [id number] Note Date of Service December 14, 2021 Chief Complaint Shortness of breath Subjective 85-year-old female past medical history significant for hypertension, hyperlipidemia, coronary artery disease, congestive heart failure, ESRD on hemodialysis, diabetes mellitus type 2 who initially presented 12/13 no shortness of breath. Patient indicated that with possible days she has been experiencing sore throat, nausea, emesis. She noted that she started experiencing progressive worsening shortness of breath and cough and therefore presented to the ER for evaluation. Patient had acute Evoxac respiratory failure secondary to COVID 19 pneumonia presentation. On evaluation today, patient is feeling better. She indicates that shortness of breath is improved.Cough is improved. No further nausea or emesis. Denies any chest discomfort. No other acute events overnight. Objective Vitals and Measurements T: 36.4 C (Oral) TMIN: 36.4 C (Oral) TMAX: 36.9 C (Oral) HR: 57(Monitored) RR: 20 BP: 126/83 SpO2: 92% HT: 160 cm WT: 97.4 kg BMI: 39.06 Intake and Output 7AM Yesterday to 7AM Today Intake and Output (Last 24 hours) Intake Output Hemodialysis 2500.00 Stool Count 0.00 Emesis Count 0.00 Total Summary Total Intake 0.00 Total Output 2500.00 Fluid Balance -2500.00 Physical Exam General Appearance: Alert, oriented Head: Normocephalic, atraumatic EENT: PERRLA, EOMI. Neck: Supple, no JVD Cardiac: Regular rate and rhythm. Normal S1/S2. No murmurs appreciated. Lungs: Lungs clear to auscultation bilaterally. Abdomen: Soft, nontender, nondistended. BS *4. Extremities: No LE edema. Neurological: AO*3, CN 2-12 intact. Skin: No excoriations, lacerations, rash, or erythema Psychiatric: Normal affect Weight Dosing Weight: 97.4 kg (12/14/21) Dosing Weight: 99.7 kg (12/14/21) Medications Medications (19) Active Scheduled: (15) albuterol - ipratropium 2.5 mg-0.5 mg/3 mL Inhal Daria UD 3 mL, Inhalation, QIDRT allopurinol 100 mg tablet 100 mg 1 tab(s), Oral, qDay amLODIPine 10 mg tablet 10 mg 1 tab(s), Oral, qDay apixaban 5 mg tablet 5 mg 1 tab(s), Oral, BID aspirin 81 mg EC 81 mg 1 tab(s), Oral, qDay atorvastatin 80 mg tablet 80 mg 1 tab(s), Oral, qDay carvedilol 6.25 mg tablet 6.25 mg 1 tab(s), Oral, BID escitalopram 20 mg tablet 20 mg 1 tab(s), Oral, qDay famotidine 20 mg tablet 20 mg 1 tab(s), Oral, qDay gabapentin 100 mg Capsule 100 mg 1 cap(s), Oral, TID hydralazine 50 mg Tablet 100 mg 2 tab(s), Oral, TID insulin glargine 10 unit(s) 0.1 mL, Subcutaneous (INT), qDay insulin regular human recombinant 100 units/mL (3 mL) Soln Give 0-10 units/dose, Subcutaneous, TIDAC methylPREDNISolone succ 40mg (40 mg/1mL) after dilution 40 mg 1 mL, IV Push, Daily torsemide 20 mg tablet 50 mg 2.5 tab(s), Oral, BID Continuous: (1) NS (0.9% nacl) 1,000 mL 1,000 mL, Intravenous, 75 mL/hr PRN: (3) albuterol - ipratropium 2.5 mg-0.5 mg/3 mL Inhal Daria UD 3 mL, Inhalation, q4hRT docusate sodium 100 mg Capsule 100 mg 1 cap(s), Oral, BID ondansetron 2 mg/ 1 mL 2 mL INJ 4 mg 2 mL, IV Push, q6h Lab Results 12/14 07:18 WBC: 10.9 H Hgb: 9.7 L Hct: 28.0 L Platelet: 138 L Neutrophil %: 93.5 H Glucose Level: 290 H Sodium Level: 133 L Potassium Level: 4.0 BUN: 95.0 H Creatinine Lvl (s): 5.20 H 12/13 17:57 WBC: 10.6 Hgb: 10.6 L Hct: 31.3 L Platelet: 130 L Neutrophil %: 91.8 H Glucose Level: 315 H Sodium Level: 137 Potassium Level: 4.3 BUN: 81.0 H Creatinine Lvl (s): 5.23 H Assessment/Plan Acute hypoxic respiratory failure COVID-19 pneumonia ESRD on hemodialysis Hypertension Hyperlipidemia Diabetes mellitus type 2 Patient presents with acute hypoxic respiratory failure secondary to COVID-19 pneumonia. Initial chest x-ray demonstrates patchy bibasilar alveolar opacities likely from edema versus infectious or inflammatory process such as COVID- pneumonia. Patient COVID-19 positive. No remdesivir due to renal function. Patient switched from Solu-Medrol to patient required up to 6 L oxygen via nasal cannula. Dexamethasone. She was requiring 2 L today and weaned down to room air this afternoon. Patient completed dialysis session. Monitor patient overnight. Patient continues to saturate well on room air likely discharge on dexamethasone. CODE STATUS: Full code. Discussed with patient. Time Spent >25 minutes with >50% of the time spent counseling patient and/or coordinating care. Discussed plan of care with patient and nursing. Attempted to call patient's Sister June per her request atth numbers listed [phone] and [phone] but was unable to reach her at either number Digitally Signed by JUANITA COLLADO MD on 12/14/2021 04:45 PM [id number] Nephrology Progress note Date of Service December 14 2021 Patient seen on hemodialysis on treatment well. Digitally Signed by STEVIE PEREZ MD on 12/14/2021 11:43 AM [id number] Consult note Date of Service December 14, 2021 Reason for Consultation Management of end-stage renal disease History of Present Illness 55-year-old female known to have a history of end-stage renal disease on dialysis Thursday, coronary artery disease, hypertension, dyslipidemia who comes in the hospital with complaints of shortness of breath. Did not been diagnosed with COVID-19 admitted for further care. We have been asked to see and manage her dialysis needs. She is otherwise resting comfortably. Shehas no other significant constitutional symptoms such as any chest pain palpitations no nausea vomiting no fever chills no gross blood in her stools or urine no rash or any weight loss. Review of Systems As per HPI Physical Exam Vitals and Measurements T: 36.9 C (Oral) TMIN: 36.7 C (Oral) TMAX: 36.9 C (Oral) HR: 63(Monitored) RR: 18 BP: 142/62 SpO2:94% HT: 160 cm WT: 100 kg BMI: 39.06 Weight Dosing Weight: 100 kg (12/13/21) Gen: comfortable, No sign of any acute distress HEENT: No pallor, No icterus, no JVD, no carotid bruit Lungs: Clear to auscultation, good air entry CVS: Regular rate and rhythm, no murmur, no rubs Abd: Soft, nontender, no organomegaly, No flank pain Neuro: Alert, no deficits Ext: No edema Left upper arm AV fistula has a good bruit and thrill Lab Results 12/14 07:18 WBC: 10.9 H Hgb: 9.7 L Hct: 28.0 L Platelet: 138 L Neutrophil %: 93.5 H Glucose Level: 290 H Sodium Level: 133 L Potassium Level: 4.0 BUN: 95.0 H Creatinine Lvl (s): 5.20 H 12/13 17:57 WBC: 10.6 Hgb: 10.6 L Hct: 31.3 L Platelet: 130 L Neutrophil %: 91.8 H Glucose Level: 315 H Sodium Level: 137 Potassium Level: 4.3 BUN: 81.0 H Creatinine Lvl (s): 5.23 H Assessment/Plan 1. ESRD on dialysis Thursday 2. COVID-19 3. Anemia 4. Hypertension From a renal standpoint patient will receive her dialysis as scheduled. We will proceed with hemodialysis today. Resume home medications. COVID-19 management as per primary service. Problem List/Past Medical History Ongoing Anemia Anxiety and depression Back pain Chronic constipation Chronic headaches Congestive heart failure 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 to type 2 diabetes mellitus History of stroke Hyperlipidemia Hypertension Iron deficiency anemia Left shoulder pain Low back pain Mass of left lower leg Postmenopausal vaginal bleeding Respiratory insufficiency Screening for breast cancer Type 2 diabetes mellitus Vitamin D deficiency Historical Anxiety CKD stage 3 secondary to diabetes Depression Diabetes type 2, uncontrolled Hypokalemia Psychosis Stage 4 chronic kidney disease Procedure/Surgical History Fistula: 2021 Cardiac catheterization: 05/27/21 Cardiovascular stress testin04/19/21 Echocardiogram: 01/21/21 Doppler ultrasound of bilateral carotid arteries: 08/21/20 Appendectomy Stent Medications Inpatient allopurinol, 100 mg= 1 tab(s), Oral, qDay amLODIPine, 10 mg= 1 tab(s), Oral, qDay aspirin 81 mg oral delayed release tablet, 81 mg= 1 tab(s), Oral, qDay atorvastatin, 80 mg= 1 tab(s), Oral, qDay Coreg, 6.25 mg= 1 tab(s), Oral, BID docusate, 100 mg= 1 cap(s), Oral, BID, PRN DuoNeb, 3 mL, Inhalation, QIDRT DuoNeb, 3 mL, Inhalation, q4hRT, PRN Eliquis, 5 mg= 1 tab(s), Oral, BID gabapentin, 100 mg= 1 cap(s), Oral, TID HumuLIN R, Give 0-10 units/dose, Subcutaneous, TIDAC hydrALAZINE, 100 mg= 2 tab(s), Oral, TID Lantus, 10 unit(s)= 0.1 mL, Subcutaneous (INT), qDay Lexapro, 20 mg= 1 tab(s), Oral, qDay methylPREDNISolone sodium succinate 40 mg preservative-free injection, 40 mg= 1 mL, IV Push, Daily NS 1,000 mL, 1000 mL, Intravenous Pepcid, 20 mg= 1 tab(s), Oral, qDay torsemide, 50 mg= 2.5 tab(s), Oral, BID Zofran, 4 mg= 2 mL, IV Push, q6h, PRN Home Acidophilus Probiotic Blend oral capsule, 1 cap(s), Oral, qDay, 3 refills, Has Not Started allopurinol 100 mg oral tablet, 100 mg= 1 tab(s), Oral, qDay amLODIPine 10 mg oral tablet, 10 mg= 1 tab(s), Oral, qDay, 11 refills aspirin 81 mg oral delayed release tablet, 81 mg= 1 tab(s), Oral, qDay atorvastatin 80 mg oral tablet, 80 mg= 1 tab(s), Oral, qDay Blood Glucose Test Machine, See Instructions Blood Glucose Test Machine, See Instructions Blood Glucose Test Strips, See Instructions, 11 refills Coreg 6.25 mg oral tablet, 6.25 mg= 1 tab(s), Oral, BID, 5 refills diclofenac 1% topical gel, 1 toby, Topical, QID, 3 refills DME MISCellaneous, See Instructions DOK 100 mg oral capsule, 100 mg= 1 cap(s), Oral, BID, PRN, 3 refills Eliquis 5 mg oral tablet, 5 mg= 1 tab(s), Oral, BID, 11 refills gabapentin 100 mg oral capsule, 100 mg= 1 cap(s), Oral, TID, 5 refills HumaLOG KwikPen 100 units/mL injectable PEN, 5 unit(s), Subcutaneous, BIDAC, 6 refills hydrALAZINE 100 mg oral tablet, 100 mg= 1 tab(s), Oral, TID, 11 refills Lancets, See Instructions, 11 refills Lexapro 20 mg oral tablet, 20 mg= 1 tab(s), Oral, qDay, 1 refills melatonin 10 mg oral tablet, 10 mg= 1 tab(s), Oral, qHS, PRN, 6 refills Nephro-Todd oral tablet, 1 tab(s), Oral, qDay ondansetron 4 mg oral tablet, disintegrating, 4 mg= 1 tab(s), Oral, q8h, PRN potassium chloride 10 mEq oral capsule, extended release, 10 mEq= 1 cap(s), Oral, BID, 3 refills torsemide 100 mg oral tablet, 50 mg= 0.5 tab(s), Oral, BID, 3 refills Toujeo Max SoloStar 300 units/mL subcutaneous solution, 20 unit(s), Subcutaneous, qDay, 1 refills Vitamin D Allergies NKA Social History Alcohol Use: Never., 08/09/2018 Nutrition/Health Caffeine intake amount: none., 10/29/2021 Substance Abuse Use: Never., 08/09/2018 Tobacco Nicotine Use: Former smoker, quit more than 30 days ago., 10/29/2021 Family History Alcohol abuse: Grandparent. Diabetes: Mother, Sister and Brother. Heart disease: Mother, Father, Sister and Brother. Hypertension: Mother, Father, Sister and Brother. Immunizations pneumococcal 23-valent vaccine(Pneumovax: 0.5 unknown unit (04/22/17) SARS-CoV-2 mRNA (tozinameran) vaccine: 30 mcg (04/11/21) SARS-CoV-2 mRNA (tozinameran) vaccine: 30 mcg (03/21/21) tetanus/diphth/pertuss (Tdap) adult/adol: 0.5 unknown unit (03/04/17) Digitally Signed by STEVIE PEREZ MD on 12/14/2021 11:41 AM [id number] Nurse Progress note Student's documentation was reviewed and all medications were verified prior to administration. Digitally Signed by Yaa Miguel RN on 12/13/2021 11:08 PM [id number] Respiratory therapy Hospital Progress note Respiratory Therapy Evaluation Entered On: 12/13/2021 20:01 EDT Performed On: 12/13/2021 20:00 EDT by Yaa Henry [employer] Respiratory Therapy Evaluation Respiratory Therapy Evaluation Score : 5 Level of Activity : Ambulatory with assistance Mental Status : Alert, oriented Respiratory Evaluation Triage Score : 3 - (11-15) Freq: QIDRT & Albuterol Q2 RT prn RT Assessment [Frequency/Schedule] : QID and PRN Yaa Henry [employer] - 12/13/2021 20:03 EDT Pulmonary Status : Smoking history >20 pack years Surgical Status : No surgeries Chest X-Ray : Clear/not ordered Breath Sounds (RT) : Clear Respiratory Pattern (RT) : Regular RR=12-20 Cough (RT) : Weak, non-productive Yaa Henry [employer] - 12/13/2021 20:00 EDT Digitally Signed by Yaa Henry [employer] on 12/13/2021 08:03 PM [id number] History and physical note Date of Service 12/13/2021 Chief Complaint Shortness of breath History of Present Illness This is a 55-year-old female who had a past medical history of hypertension, hyperlipidemia, coronary artery disease, CHF, end-stage renal disease on hemodialysis, diabetes type 2 who came to the hospital complaining of shortness of breath. The patient said that her symptoms started a few days ago with sore throat, nausea and vomiting, she mention 5-6 episodes of nonbloody vomitus every day last one was this morning, no abdominal pain, no diarrhea or constipation, the patient follow-up with her primary care physician a few days ago when she was diagnosed with viral disease, COVID was ordered and it was positive but according the patient she was not informed about that, as her symptoms did not get any better she went to [facility] complaining of continued to vomiting, worsening shortness of breath, cough. The patient was found to be hypoxic and she required to be on 5 L of nasal cannula, she was given 1 dose of IV dexamethasone. The patient was supposed to have dialysis yesterday but she missed her session secondary to weakness and feeling poor. Review of Systems In general: The patient denies any fever or chills, decreased oral intake no change in weight Eyes: No blurry vision, no redness or pain Ears: No decrease in hearing, no ringing in ears Nose: No runny nose or stuffiness Mouth: No dry mouth or sore throat Neck: No pain or stiffness Respiratory system: As mentioned in the history before Cardiovascular system: No chest pain, the patient does have shortness of breath Gastrointestinal system: Nausea and vomiting, no abdominal pain, no diarrhea or constipation Genitourinary system: No urgency or frequency, no burning or pain Neurologic system: No headache, no seizure-like activity, no weakness or numbness Review of other system is negative except that mentioned in the history before Physical Exam Vitals and Measurements T: 36.8 C (Oral) HR: 62(Monitored) RR: 18 BP: 147/70 SpO2: 92% No qualifying data available. In general she is well-developed female in no acute distress HEENT: Normocephalic/atraumatic, PERRLA/EOMI Neck: Supple, no thyromegaly no JVD Heart: Regular rate and rhythm, S1-S2 is normal Lungs: Decreased breathing sounds bilaterally, no wheezing or crackles Abdomen: Soft, nontender distended bowel sounds are heard in all quadrants Lower extremities: No edema, pulse palpable bilaterally Neurologic exam: The patient is awake alert oriented x3, no focal logic deficits Lab Results White blood count: 14.3, hemoglobin: White blood count: 14.3, hemoglobin: 11.1, platelet: 135, sodium: 139, creatinine: 5.6, BUN: 75, sodium: 139, potassium: 4.1 Imaging Results and Diagnostics Chest x-ray: Shows infiltrates bilaterally goes with COVID-pneumonia Assessment/Plan 1. Acute hypoxic respiratory failure secondary to COVID-pneumonia: We will continue on oxygen at 6 L per nasal cannula to keep oxygen saturation more than 92%, start the patient on Solu-Medrol 40 mg IV daily the patient is not a candidate for remdesivir because of end-stage renal disease, will continue to check labs on daily basis. 2. COVID-19 pneumonia: The plan as mentioned in 1 3. End-stage renal disease on hemodialysis: Nephrology has been consulted Dr. Valera 4. Nausea and vomiting: In the term of had COVID infection, will start the patient on soft diet andZofran as needed for nausea and vomiting 5. Hypertension: Continue to monitor blood pressure and continue home medications 5. Hyperlipidemia: Continue statin at the same dose 6. Coronary artery disease and CHF: Stable we will continue home medication at the same doses 7. Diabetes type 2: Continue to monitor blood glucose QA [facility] and start the patient on sliding scale, waiting for the medication that the patient is taking at home we might need to decrease the insulin dose she is taking it at home as the patient is still complaining of nausea and vomiting and had poor oral intake 8. DVT prophylaxis: Continue Eliquis CODE STATUS: Reviewed with the patient who agreed to be full code she asked if we can discuss this more with her sister, I do not have a phone number for now I told the nurse in charge to get it so Ican call her and update her about her situation and answered her questions and also discussed the CODE STATUS further with her. Problem List/Past Medical History Ongoing Anemia Anxiety and depression Back pain Chronic constipation Chronic headaches Congestive heart failure 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 to type 2 diabetes mellitus History of stroke Hyperlipidemia Hypertension Iron deficiency anemia Left shoulder pain Low back pain Mass of left lower leg Postmenopausal vaginal bleeding Respiratory insufficiency Screening for breast cancer Type 2 diabetes mellitus Vitamin D deficiency Historical Anxiety CKD stage 3 secondary to diabetes Depression Diabetes type 2, uncontrolled Hypokalemia Psychosis Stage 4 chronic kidney disease Procedure/Surgical History Fistula: 2021 Cardiac catheterization: 05/27/21 Cardiovascular stress testin04/19/21 Echocardiogram: 01/21/21 Doppler ultrasound of bilateral carotid arteries: 08/21/20 Appendectomy Stent Medications Home Medications (25) Active Acidophilus Probiotic Blend oral capsule 1 cap(s), Oral, qDay allopurinol 100 mg oral tablet 100 mg = 1 tab(s), Oral, qDay amLODIPine 10 mg oral tablet 10 mg = 1 tab(s), Oral, qDay aspirin 81 mg oral delayed release tablet 81 mg = 1 tab(s), Oral, qDay atorvastatin 80 mg oral tablet 80 mg = 1 tab(s), Oral, qDay Blood Glucose Test Machine See Instructions Blood Glucose Test Machine See Instructions Blood Glucose Test Strips See Instructions Coreg 6.25 mg oral tablet 6.25 mg = 1 tab(s), Oral, BID diclofenac 1% topical gel 1 toby, Topical, QID DME MISCellaneous See Instructions DOK 100 mg oral capsule 100 mg = 1 cap(s), PRN, Oral, BID Eliquis 5 mg oral tablet 5 mg = 1 tab(s), Oral, BID gabapentin 100 mg oral capsule 100 mg = 1 cap(s), Oral, TID HumaLOG KwikPen 100 units/mL injectable PEN 5 unit(s), Subcutaneous, BIDAC hydrALAZINE 100 mg oral tablet 100 mg = 1 tab(s), Oral, TID Lancets See Instructions Lexapro 20 mg oral tablet 20 mg = 1 tab(s), Oral, qDay melatonin 10 mg oral tablet 10 mg = 1 tab(s), PRN, Oral, qHS Nephro-Todd oral tablet 1 tab(s), Oral, qDay ondansetron 4 mg oral tablet, disintegrating 4 mg = 1 tab(s), PRN, Oral, q8h potassium chloride 10 mEq oral capsule, extended release 10 mEq = 1 cap(s), Oral, BID torsemide 100 mg oral tablet 50 mg = 0.5 tab(s), Oral, BID Toujeo Max SoloStar 300 units/mL subcutaneous solution 20 unit(s), Subcutaneous, qDay Vitamin D Allergies NKA Social History Alcohol Use: Never., 08/09/2018 Nutrition/Health Caffeine intake amount: none., 10/29/2021 Substance Abuse Use: Never., 08/09/2018 Tobacco Nicotine Use: Former smoker, quit more than 30 days ago., 10/29/2021 Family History Alcohol abuse: Grandparent. Diabetes: Mother, Sister and Brother. Heart disease: Mother, Father, Sister and Brother. Hypertension: Mother, Father, Sister and Brother. Immunizations pneumococcal 23-valent vaccine(Pneumovax: 0.5 unknown unit (04/22/17) SARS-CoV-2 mRNA (tozinameran) vaccine: 30 mcg (04/11/21) SARS-CoV-2 mRNA (tozinameran) vaccine: 30 mcg (03/21/21) tetanus/diphth/pertuss (Tdap) adult/adol: 0.5 unknown unit (03/04/17) Code Status No qualifying data available. Digitally Signed by JASWINDER RUEDA MD on 12/13/2021 04:14 PM [id number] Evaluation + Plan noteExtracted from: Title:History and Physical Author:JASWINDER RUEDA Date:12/13/21 1. Acute hypoxic respiratory failure secondary to COVID-pneumonia: We will continue on oxygen at 6 L per nasal cannula to keep oxygen saturation more than 92%, start the patient on Solu-Medrol 40 mg IV daily the patient is not a candidate for remdesivir because of end-stage renal disease, will continue to check labs on daily basis. 2. COVID-19 pneumonia: The plan as mentioned in 1 3. End-stage renal disease on hemodialysis: Nephrology has been consulted Dr. Valera 4. Nausea and vomiting: In the term of had COVID infection, will start the patient on soft diet and Zofran as needed for nausea and vomiting 5. Hypertension: Continue to monitor blood pressure and continue home medications 5. Hyperlipidemia: Continue statin at the same dose 6. Coronary artery disease and CHF: Stable we will continue home medication at the same doses 7. Diabetes type 2: Continue to monitor blood glucose QA [facility] and start the patient on sliding scale, waiting for the medication that the patient is taking at home we might need to decrease the insulin dose she is taking it at home as the patient is still complaining of nausea and vomiting and had poor oral intake 8. DVT prophylaxis: Continue Eliquis CODE STATUS: Reviewed with the patient who agreed to be full code she asked if we can discuss this more with her sister, I do not have a phone number for now I told the nurse in charge to get it so I can call her and update her about her situation and answered her questions and also discussed the CODE STATUS further with her. Future Appointments Appointment Date:12/25/2021 10:00:00 AM Scheduled Provider: Location:[facility] [place] Appointment Type:DB Diabetic Individual Visit Appointment Date:01/06/2022 03:00:00 PM Scheduled Provider:DENISSE SUTTON Location:[facility] Appointment Type:PC OV Future Scheduled Tests Laboratory* A1C Hemoglobin 02/28/21 * Lipid Profile 02/28/21 * Vitamin D Level 02/28/21 * Complete Metabolic Panel 02/28/21 Radiology* MA Mammo Screening Bilateral w/ Julien 09/02/21 * NM Myocardial Spect Rest/Stress 12/12/21 * XR Shoulder Minimum 2 Views Left 07/31/21 * XR Shoulder Minimum 2 Views Right 08/15/21 [facility] 09-16-2022 Note ORIGINAL EXAMINATION: ONE XRAY VIEW OF THE CHEST12/13/2021 4:56 am COMPARISON: Chest x-ray December 11, 2021 HISTORY: ORDERING SYSTEM PROVIDED HISTORY: Reason for Exam: sob Positive COVID 2 days ago FINDINGS: Mild cardiomegaly which may be accentuated by portable technique and low lung volumes. Atherosclerotic calcification of the aortic knob. Patchy alveolar bibasilar opacities. Suspect small bilateral pleural effusions. No pneumothorax. No acute osseous abnormality. IMPRESSION: 1. Mild cardiomegaly as above. 2. Patchy bibasilar alveolar opacities, likely from edema versus infectious or inflammatory process such as COVID pneumonia. 3. Small bilateral pleural effusions suspected. I have personally reviewed the images of this examination and agree with the resident's findings and interpretation. Interpreted by: Diamond Dela Cruz MD Preliminary Report By: Rossi Peterson Electronically signed By Diamond Dela Cruz MD Dictated Date: 12/13/2021 5:04:32 AM Prelim Date: 12/13/2021 5:09:14 AM Sign Date: 12/13/2021 6:45:06 AM Ordering Provider: [facility]09-16-2022 Note ORIGINAL EXAMINATION: ONE XRAY VIEW OF THE CHEST12/13/2021 4:56 am COMPARISON: Chest x-ray December 11, 2021 HISTORY: ORDERING SYSTEM PROVIDED HISTORY: Reason for Exam: sob Positive COVID 2 days ago FINDINGS: Mild cardiomegaly which may be accentuated by portable technique and low lung volumes. Atherosclerotic calcification of the aortic knob. Patchy alveolar bibasilar opacities. Suspect small bilateral pleural effusions. No pneumothorax. No acute osseous abnormality. IMPRESSION: 1. Mild cardiomegaly as above. 2. Patchy bibasilar alveolar opacities, likely from edema versus infectious or inflammatory process such as COVID pneumonia. 3. Small bilateral pleural effusions suspected. I have personally reviewed the images of this examination and agree with the resident's findings and interpretation. Interpreted by: Diamond Dela Cruz MD Preliminary Report By: Rossi Peterson Electronically signed By Diamond Dela Cruz MD Dictated Date: 12/13/2021 5:04:32 AM Prelim Date: 12/13/2021 5:09:14 AM Sign Date: 12/13/2021 6:45:06 AM Ordering Provider: [facility]09-16-2022 SARS-CoV-2 (COVID-19) RNA YANI+probe Ql (Nph)Positive *ABN* (12/13/21 4:41 AM)AO Auto Urine [id number] HCoV 229E RNA YANI+non-probe Ql (Nph) Not Detected *NA* (12/11/21 4:15 PM)AH Auto Viro/Sero [id number] Note ORIGINAL HISTORY: Multiple palpable masses in the left leg. COMPARISON: No FINDINGS There are multiple small heterogeneous nodules in the leg, 3 of which are visible here, the largest measuring about 2 cm in maximum diameter in the smallest about 1.6 cm in maximum diameter. IMPRESSION: 3 discrete nodules are visualized; these may represent resolving hematomas or fatty necrosis. Interpreted by: Stevie Shukla MD Preliminary Report By: Stevie Shukla MD Electronically signed By Stevie Shukla MD Dictated Date: 11/22/2021 1:44:20 PM Prelim Date: 11/22/2021 1:45:56 PM Sign Date: 11/22/2021 1:45:56 PM Ordering Provider: [facility]08-26-2022 Note ORIGINAL HISTORY: Multiple palpable masses in the left leg. COMPARISON: No FINDINGS There are multiple small heterogeneous nodules in the leg, 3 of which are visible here, the largest measuring about 2 cm in maximum diameter in the smallest about 1.6 cm in maximum diameter. IMPRESSION: 3 discrete nodules are visualized; these may represent resolving hematomas or fatty necrosis. Interpreted by: Stevie Shukla MD Preliminary Report By: Stevie Shukla MD Electronically signed By Stevie Shukla MD Dictated Date: 11/22/2021 1:44:20 PM Prelim Date: 11/22/2021 1:45:56 PM Sign Date: 11/22/2021 1:45:56 PM Ordering Provider: [facility]08-08-2022 Hospital Discharge instructions Patient Education 11/04/2021 18:02:01 Overdose, Accidental (Adult) Accidental Ingestion: Nontoxic (Adult) You have been evaluated and treated for accidentally taking too much of a medicine or swallowing a chemical product. There is no sign of toxic effect at this time. It's not likely that any new symptoms will appear. But, to be safe, watch for symptoms during the next 24 hours (see below). The symptoms will depend on what was swallowed. Home care If liquid charcoal was given to neutralize what was swallowed, Your stool may be black for 1 to 2 days. Usually, a laxative is given with charcoal. This speeds the removal of any toxins from the intestines. This may cause diarrhea for up to 24 hours. If you have been given charcoal but no laxative, you may become constipated. If this occurs, you may take an hobx-qsm-ibvjjxe laxative. Prevention Keep medicines, pesticides, and other household chemicals in their original containers. Clearly patsy all harmful products if a different bottle is used. Keep all substances in a safe place. In the future, if you or someone you know takes something possibly harmful, and you are not sure what to do, call the [place] [employer] Control Centers. The phone number is [phone].The phone line is staffed 24 hours a day. If you call, you will be connected to the poison control center closest to you. Follow-up care Follow up with your healthcare provider, or as advised. Call 911 Call 911 if any of these occur. Trouble breathing or swallowing, wheezing Severe confusion Extreme drowsiness or trouble awakening Fainting or loss of consciousness Rapid heart rate Very slow heart rate Very low or very high blood pressure Vomiting blood, or large amounts of blood in stool Seizure When to seek medical advice Call your healthcare provider right away if any of these occur. Shakiness Fast breathing (over 25 breaths per minute) or slow breathing (less than 8 breaths per minute) Shortness of breath Fever of 100.4 F (38 C) or higher, or as directed by your healthcare provider Vomiting or diarrhea for more than 24 hours Abdominal pain Dizziness or weakness [id number] [employer] [place] [address], [place] [address]. All rights reserved. This information is not intended as a substitute for professional medical care. Always follow yourhealthcare professional's instructions. Follow Up Care 11/04/2021 14:39:51 With:DENISSE SUTTON APRN-WASTE PICKER Address: [address] [facility] [place] [address]- [phone] When:2-[address] [facility] 08-08-2022 Note Discharge Instructions Thank you for allowing [facility] to assist you with your healthcare needs. The following is importantdischarge information regarding your hospital visit. Diagnosis from Today's Visit Medication overuse Unintentional ingestion - overdose What to Do Next Instructions from Your Care Team No qualifying data available. Post Acute Orders No qualifying data available. You Need to Schedule the Following Appointments Follow Up with DENISSE SUTTON When Within 2-4 days Where: [address] [facility] [place] [address] [phone] Allergies NKA Medications Please ask your primary doctor or pharmacist before taking any other medication not listed, including over the counter drugs, herbal medications, vitamins and or supplements as they may interact withyour home medications. What How Much When Why Instructions Last Dose Unchanged allopurinol (allopurinol 100 mg oral tablet) 1 tab(s) by mouth Once a day Unchanged amLODIPine (amLODIPine 10 mg oral tablet) 1 tab(s) by mouth Once a day Unchanged apixaban (Eliquis 5 mg oral tablet) 1 tab(s) by mouth Two (2) times a day Unchanged aspirin (aspirin 81 mg oral delayed release tablet) 1 tab(s) by mouth Once a day Unchanged atorvastatin (atorvastatin 80 mg oral tablet) 1 tab(s) by mouth Once a day Unchanged carvedilol (Coreg 6.25 mg oral tablet) 1 tab(s) by mouth Two (2) times a day Duration: 30 Days Unchanged diclofenac topical (diclofenac 1% topical gel) 1 application Topical Four (4) times a day Unchanged DME (Blood Glucose Test Machine) See instructions Brand type per insurance or patient preference. Dx: E11.9, pt insulin dependent, test 4times/ day Unchanged DME (Blood Glucose Test Machine) See instructions Use as directed Brand type per insurance or patient preference Unchanged DME (Blood Glucose Test Strips) See instructions 1 bottle of 100 ---Test 4times/ day--Pt has accucheck guide dx E11.9 Pt insulin dependent. Unchanged DME (DME MISCellaneous) See instructions 2 pairs of compression stockings. Dx CHF. Unchanged DME (Lancets) See instructions qs 1 month supply--test four times daily--has accucheck guide dx E11.9, insulin dependent Unchanged docusate (DOK 100 mg oral capsule) 1 cap by mouth Two (2) times a day as needed for as needed for constipation Unchanged escitalopram (Lexapro 20 mg oral tablet) 1 tab(s) by mouth Once a day Duration: 30 Days Unchanged gabapentin (gabapentin 100 mg oral capsule) 1 cap by mouth Three (3) times a day Leg pain Duration: 30 Days Unchanged hydrALAZINE (hydrALAZINE 100 mg oral tablet) 1 tab(s) by mouth Three (3) times a day Duration: 30 Days Unchanged insulin glargine (Toujeo Max SoloStar 300 units/ mL subcutaneous solution) 20 unit(s) Subcutaneous Once a day Duration: 30 Days Unchanged insulin lispro (HumaLOG) (HumaLOG KwikPen 100 units/ mL injectable PEN) 5 unit(s) Subcutaneous Two (2) times daily before meals Unchanged lactobacillus acidophilus (Acidophilus Probiotic Blend oral capsule) 1 cap by mouth Once a day Unchanged melatonin (melatonin 10 mg oral tablet) 1 tab(s) by mouth Daily at bedtime as needed for as needed for insomnia Duration: 30 Days Unchanged Misc Medication (Vitamin D) Unchanged multivitamin (Nephro-Todd oral tablet) 1 tab(s) by mouth Once a day Unchanged potassium chloride (potassium chloride 10 mEq oral capsule, extended release) 1 cap by mouth Two (2) times a day Unchanged torsemide (torsemide 100 mg oral tablet) 0.5 tab(s) by mouth Two (2) times a day Duration: 90 Days Please take this list to your next doctor s visit. Bring all medications you take, including over the counter medications, herbals and other supplements with you to your doctor s visit. Patients and families are reminded to discard old lists and to update any records with all medication providers or retail pharmacies. Education Materials Accidental Ingestion: Nontoxic (Adult) You have been evaluated and treated for accidentally taking too much of a medicine or swallowing a chemical product. There is no sign of toxic effect at this time. It's not likely that any new symptoms will appear. But, to be safe, watch for symptoms during the next 24 hours (see below). The symptoms will depend on what was swallowed. Home care If liquid charcoal was given to neutralize what was swallowed, Your stool may be black for 1 to 2 days. Usually, a laxative is given with charcoal. This speeds the removal of any toxins from the intestines. This may cause diarrhea for up to 24 hours. If you have been given charcoal but no laxative, you may become constipated. If this occurs, you may take an vpbl-sub-kbsypgc laxative. Prevention Keep medicines, pesticides, and other household chemicals in their original containers. Clearly patsy all harmful products if a different bottle is used. Keep all substances in a safe place. In the future, if you or someone you know takes something possibly harmful, and you are not sure what to do, call the [place] [employer] Poison Control Centers. The phone number is [phone].The phone line is staffed 24 hours a day. If you call, you will be connected to the poison control center closest to you. Follow-up care Follow up with your healthcare provider, or as advised. Call 911 Call 911 if any of these occur. Trouble breathing or swallowing, wheezing Severe confusion Extreme drowsiness or trouble awakening Fainting or loss of consciousness Rapid heart rate Very slow heart rate Very low or very high blood pressure Vomiting blood, or large amounts of blood in stool Seizure When to seek medical advice Call your healthcare provider right away if any of these occur. Shakiness Fast breathing (over 25 breaths per minute) or slow breathing (less than 8 breaths per minute) Shortness of breath Fever of 100.4 F (38 C) or higher, or as directed by your healthcare provider Vomiting or diarrhea for more than 24 hours Abdominal pain Dizziness or weakness [phone] [employer]. [address] [place] [address]. All rights reserved. This information is not intended as a substitute for professional medical care. Always follow yourhealthcare professional's instructions. Additional Information VACCINATE! IT SAVES LIVES! Members of the community who have not yet received the COVID-19 vaccine and would like to receive it can visit one of [facility] vaccine clinics. There are many vaccine clinic locations within the [facility]. For locations and available times, please visit [email or web address]. It is important to note that some COVID mobile vaccine clinics are held outdoors and may be canceled in rainy orstormy conditions. To learn more about pediatric vaccinations (ages 5-11), we invite you to visit the [facility] webpage. [email or web address] learn more about the COVID-19 vaccine, we invite you to visit the [facility] website for a list of frequently asked questions. [email or web address] [facility] Patient Portal Access Instructions: Stay connected with your healthcare team and access your personal medical information anytime with the [facility] Patient Portal. If you would like a full copy of your medical records please contact the [facility] Medical Records Department Thursday through Thursday between 8a.m. and 4:30p.m. Please follow the directions below to access the portal: 1.Access the email account you provided upon registration to the [facility].2.Look for an invitation email from [facility].3.Open the email and access the invitation link: Accept Invitation to [facility]4.Fill in the required gilmore to create your account. Sign into [email or web address] with your username and password that you created in the above steps to stay up to date. You can then view a summary of results, a summary of your visits, and the ability to download your summaries to your computer or send the information securely to a physician. Remember that your healthcare information is confidential, so carefully consider who you will allow to register on the [facility] Patient Portal for access to your information. You can also access the [facility] Patient Portal on the [employer] toby. Simply click on Health Records under [employer] and then click on the [facility] logo. HOW TO SAFELY DISPOSE OF PRESCRIPTION MEDICATIONS Please use one of the following methods to safely dispose of your unused medications. 1.Use a drug disposal kit: the drug disposal pouch allows you to safely discard your old and unuseddrugs. Ask your nurse to give you one when you are discharged.2.Visit a local take-back location: Many local pharmacies and police departments have programs that collect old and unwanted prescriptiondrugs. Call your local pharmacy or go to http://bit.ly/3X4Hc0j to find one close to you.3.Make use of household items: Use cat litter or old coffee grounds to dispose medications if other options arenot available. Mix your drugs with these household products, seal them in an airtight container andthrow it into the garbage. Call [facility]: [phone] to be sure your drugs can be disposed of in this way. Some medicines may require a different approach.4.Never flush your medications down the toilet. IF YOU HAVE BEEN PRESCRIBED AN OPIOIDS FOR PAIN If you have been prescribed an opioid (such as hydrocodone, oxycodone or morphine), it is critical to understand the possible side effects and risks of opioid pain medications. Even when taken as directed, opioids can have several side effects including: Tolerance, meaning you might need to take more of a medication for the same pain relief. Nausea, vomiting and/or constipation. Sleepiness, dizziness, dry mouth, confusion, depression or itching. Physical dependence, meaning you have withdrawal symptoms when a medication is stopped ? this can develop within a few days. KNOW YOUR RESPONSIBILITIES It is important to know exactly how much and how often to take the opioid pain medications you are prescribed. Never take opioids in higher amounts or more often than prescribed. Do not combine opioids with alcohol or other drugs that cause drowsiness, such as benzodiazepines, also known as benzos,including diazepam and alprazolam, muscle relaxants or sleep aids. Never sell or share prescriptionopioids. This is illegal. Store opioids in a secure place and out of reach of others (including children, family, friends and visitors). The last page(s) of this document has been signed and retained as a CHART COPY Signatures Patient Education Materials Overdose, Accidental (Adult) Medication Leaflets My discharge plan and instructions have been reviewed and explained to me and I,ZAYDA DAVIS understand my current condition and have read and understand these discharge instructions. I have received a written copy of the plan/instructions. If I have questions, I am aware that I should contactmy doctor. Patient/Identity Management Developer Signature: Date/Time: Relationship to Patient: Witness Name/Signature: Date/Time: [facility] [id number] SARS-CoV-2 (COVID-19) RNA YANI+probe Ql (Nph)Negative (10/10/21 12:00 PM)AO Auto Urine [id number] NoteDiagnoses/Problems Pre-transplant evaluation for kidney transplant (V72.83) (Z01.818) Provider Impressions Impression: 1. ESRD. Patient appears to be a high risk candidate for kidney transplantation because of her cardiac disease and memory loss. I did not review the overall process of kidney transplant. Plan: 1. Complete work up and see social work, surgeon, and financial counsellor 2. After today's visit with the multidisciplinary team, her candidacy will be discussed at our upcoming selection committee and a decision will be made at that time about his candidacy to receive a kidney transplant. The patient and referring physician will be informed of the outcome under separatecover. Thank you for the referral and if you have any questions, don't hesitate to contact us. History of Present Illness Today, I had the pleasure of seeing ZAYDA DAVIS in the transplant institute at [facility] on Aug as a consultation to assess suitability to undergo a kidney transplant. She is a very itgpkpin16 year old woman with history of ESRD of type 2 diabetes etiology. She was never evaluated here at [facility] or any other transplant institute for transplant before. She does in-center hemodialysis 3 times a week. She started dialysis 01/2021. Today, she arrived in a wheelchair for the appointment and was accompanied by her sister and a daughter. Sister and daughter provided most of the history. They mentioned that the patient has memory loss after her stroke in 2019. Patient had trouble remembering her daughter's name. She is currently living with her sister, able to do activities of daily living by herself, though she needs help withbathing because she has a dialysis catheter (Karnofsky performance scale score of 60). She had a positive stress test in March 2021, underwent a left heart catheterization in 04/2021 (report available in [facility]) that showed, multivessel coronary artery disease. Please see detailed resultbelow. Through out my encounter, patient had a labile mood, from conversing normally to crying to sobbing.When I asked her what caused you kidney disease, she replied, because I did not eat right and started crying. Towards the end of my encounter, when I mentioned about her heart disease being a barrier to kidney transplant surgery, she began sobbing. PM/PSHx: 1. 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 HTN 3. DM-II for 15 years. 4. CAD, s/p PCI Active Problems Abdominal pain (789.00) (R10.9) Added by Problem List Migration; 2012-06-28; Moved to [facility] Feb 23 2013 9:11PM Acid reflux (530.81) (K21.9) Acute back pain (724.5) (M54.9) Acute bronchitis (466.0) (J20.9) Acute sinusitis (461.9) (J01.90) Anxiety (300.00) (F41.9) Arm pain (729.5) (M79.603) Cholelithiasis (574.20) (K80.20) Coughing (786.2) (R05.9) Depression with anxiety (300.4) (F41.8) Diabetes mellitus (250.00) (E11.9) Elevated serum creatinine (790.99) (R79.89) Esophageal reflux (530.81) (K21.9) Fatigue (780.79) (R53.83) Heart rate fast (785.0) (R00.0) Hypercholesterolemia (272.0) (E78.00) Hypertension (401.9) (I10) Hypocalcemia (275.41) (E83.51) Morbid obesity (278.01) (E66.01) Pre-transplant evaluation for kidney transplant (V72.83) (Z01.818) Proteinuria (791.0) (R80.9) Right shoulder pain (719.41) (M25.511) Urinary frequency (788.41) (R35.0) Weight loss (783.21) (R63.4) Past Medical History History of Anxiety (300.00) (F41.9) History of Coronary Artery Disease (V12.59) S/P STENT History of diabetes mellitus (V12.29) (Z86.39) History of glaucoma (V12.49) (Z86.69) History of hypercholesterolemia (V12.29) (Z86.39) History of hypertension (V12.59) (Z86.79) History of peripheral neuropathy (V12.49) (Z86.69) Personal history of asthma (V12.69) (Z87.09) Surgical History History of Appendectomy History of Section History of Knee Surgery History of Tubal Ligation Family History Family history of Diabetes Mellitus (V18.0) Family history of Hypertension (V17.49) Family history of Acute Myocardial Infarction (V17.3) Family history of Father At Age 44 Family history of Diabetes Mellitus (V18.0) Social History Denied: History of Alcohol Never smoker Allergies No Known Drug Allergies Recorded By: Gracie Dominguez; 07/08/2012 10:05:04 AM Current Meds Medication NameInstruction BD Insulin Syringe Ultrafine 31G X 15/64 1 ML MISCUSE DIRECTED 5 TIMES DAILY DULoxetine HCl - 60 MG Oral Capsule Delayed Release ParticlesTAKE 1 CAPSULE DAILY. DULoxetine HCl - 60 MG Oral Capsule Delayed Release ParticlesTAKE 1 CAPSULE DAILY. Fenofibrate 160 MG Oral TabletTAKE 1 TABLET BY MOUTH EVERY MORNING FreeStyle Lite Test In Vitro StripTEST 3 TIMES DAILY. Gabapentin 400 MG Oral CapsuleTAKE 1 CAPSULE 4 TIMES DAILY. HumaLOG KwikPen 100 UNIT/ML Subcutaneous Solution Pen-injectorINJECT 23 UNIT Before meals Levemir FlexTouch 100 UNIT/ML Subcutaneous Solution Pen-injectorINJECT 70 UNITS UNDER (more contentnot included)... TouchworksEvaluation + Plan note Future Appointments Appointment Date:02/28/2021 09:30:00 AM Scheduled Provider:DENISSE SUTTON Location:[facility] Appointment Type:PC OV Diagnostic Tests Pending * Hepatitis B Core Antibody Total 01/10/21 Future Scheduled Tests Laboratory* Clostridium difficile PCR 10/22/20 * A1C Hemoglobin 02/28/21 * Lipid Profile 02/28/21 * Vitamin D Level 02/28/21 * Complete Metabolic Panel 02/28/21 Radiology* MA Mammo Screening Bilateral w/ Julien 08/29/20 [facility] Evaluation + Plan note Future Appointments Appointment Date:09/10/2021 03:00:00 PM Scheduled Provider: Location:[facility] [place] Appointment Type:DB Diabetic Individual Visit Future Scheduled Tests Laboratory* Clostridium difficile PCR 10/22/20 * A1C Hemoglobin 02/28/21 * Lipid Profile 02/28/21 * Vitamin D Level 02/28/21 * Complete Metabolic Panel 02/28/21 Radiology* MA Mammo Screening Bilateral w/ Julien 08/29/20 * XR Shoulder Minimum 2 Views Left 07/31/21 [facility] Evaluation + Plan note Future Appointments Appointment Date:09/24/2021 02:00:00 PM Scheduled Provider: Location:[facility] [place] Appointment Type:DB Diabetic Individual Visit Appointment Date:10/07/2021 03:30:00 PM Scheduled Provider:DENISSE SUTTON Location:[facility] Appointment Type:PC OV Follow Up Appointment Date:10/10/2021 04:30:00 PM Scheduled Provider: Location:[facility] Appointment Type:[facility] Future Scheduled Tests Laboratory* Clostridium difficile PCR 10/22/20 * A1C Hemoglobin 02/28/21 * Lipid Profile 02/28/21 * Vitamin D Level 02/28/21 * Complete Metabolic Panel 02/28/21 Radiology* MA Mammo Screening Bilateral w/ Julien 09/02/21 * XR Shoulder Minimum 2 Views Left 07/31/21 * XR Shoulder Minimum 2 Views Right 08/15/21 [facility] Evaluation + Plan note Future Appointments Appointment Date:02/28/2021 09:30:00 AM Scheduled Provider:DENISSE SUTTON Location:[facility] Appointment Type:PC OV Future Scheduled Tests Laboratory* Clostridium difficile PCR 10/22/20 * A1C Hemoglobin 02/28/21 * Lipid Profile 02/28/21 * Vitamin D Level 02/28/21 * Complete Metabolic Panel 02/28/21 Radiology* MA Mammo Screening Bilateral w/ Julien 08/29/20 [facility] Evaluation + Plan note Future Appointments Appointment Date:10/29/2021 11:00:00 AM Scheduled Provider: Location:[facility] Appointment Type:CV CUSHION SEWER Appointment Date:12/25/2021 10:00:00 AM Scheduled Provider: Location:[facility] Appointment Type:DB Diabetic Individual Visit Appointment Date:01/06/2022 03:00:00 PM Scheduled Provider:DENISSE SUTTON Location:[facility] Appointment Type:PC OV Future Scheduled Tests Laboratory* Clostridium difficile PCR 10/22/20 * A1C Hemoglobin 02/28/21 * Lipid Profile 02/28/21 * Vitamin D Level 02/28/21 * Complete Metabolic Panel 02/28/21 Radiology* MA Mammo Screening Bilateral w/ Julien 09/02/21 * XR Shoulder Minimum 2 Views Left 07/31/21 * XR Shoulder Minimum 2 Views Right 08/15/21 [facility] Evaluation + Plan note Future Appointments Appointment Date:11/22/2021 10:00:00 AM Scheduled Provider: Location:RAD Appointment Type:VL AOH - Venous US/Doppler One Leg (for Appointment Date:11/22/2021 11:00:00 AM Scheduled Provider: Location:[facility] Appointment Type:US Soft Tissue Mass Appointment Date:12/11/2021 09:30:00 AM Scheduled Provider: Location:[facility] Appointment Type:NM Myocardial Spect Rest/Stress [place] Appointment Date:12/11/2021 10:00:00 AM Scheduled Provider: Location:[facility] Appointment Type:CV Procedure - Echo (Adult) Appointment Date:12/11/2021 11:00:00 AM Scheduled Provider: Location:[facility] Appointment Type:VL - Carotid US/Doppler Complete Appointment Date:12/25/2021 10:00:00 AM Scheduled Provider: Location:[facility] Appointment Type:DB Diabetic Individual Visit Appointment Date:01/06/2022 03:00:00 PM Scheduled Provider:DENISSE SUTTON Location:[facility] Appointment Type:PC OV Future Scheduled Tests Laboratory* A1C Hemoglobin 02/28/21 * Lipid Profile 02/28/21 * Vitamin D Level 02/28/21 * Complete Metabolic Panel 02/28/21 Radiology* MA Mammo Screening Bilateral w/ Julien 09/02/21 * NM Myocardial Spect Rest/Stress 12/11/21 * XR Shoulder Minimum 2 Views Left 07/31/21 * XR Shoulder Minimum 2 Views Right 08/15/21 * US Soft Tissue Mass 11/22/21 [facility] Evaluation + Plan note Future Appointments Appointment Date:12/11/2021 09:30:00 AM Scheduled Provider: Location:[facility] Appointment Type:NM Myocardial Spect Rest/Stress Mar[place]ell Appointment Date:12/11/2021 10:00:00 AM Scheduled Provider: Location:[facility] Appointment Type:CV Procedure - Echo (Adult) Appointment Date:12/11/2021 11:00:00 AM Scheduled Provider: Location:[facility] Appointment Type:VL - Carotid US/Doppler Complete Appointment Date:12/25/2021 10:00:00 AM Scheduled Provider: Location:ST Appointment Type:DB Diabetic Individual Visit Appointment Date:01/06/2022 03:00:00 PM Scheduled Provider:DENISSE SUTTON Location:[facility] Appointment Type:PC OV Future Scheduled Tests Laboratory* A1C Hemoglobin 02/28/21 * Lipid Profile 02/28/21 * Vitamin D Level 02/28/21 * Complete Metabolic Panel 02/28/21 Radiology* MA Mammo Screening Bilateral w/ Julien 09/02/21 * NM Myocardial Spect Rest/Stress 12/11/21 * XR Shoulder Minimum 2 Views Left 07/31/21 * XR Shoulder Minimum 2 Views Right 08/15/21 [facility] Evaluation + Plan note Future Appointments Appointment Date:12/25/2021 10:00:00 AM Scheduled Provider: Location:[facility] Appointment Type:DB Diabetic Individual Visit Appointment Date:01/06/2022 03:00:00 PM Scheduled Provider:DENISSE SUTTON Location:[facility] Appointment Type:PC OV Future Scheduled Tests Laboratory* A1C Hemoglobin 02/28/21 * Lipid Profile 02/28/21 * Vitamin D Level 02/28/21 * Complete Metabolic Panel 02/28/21 Radiology* MA Mammo Screening Bilateral w/ Julien 09/02/21 * NM Myocardial Spect Rest/Stress 12/12/21 * XR Shoulder Minimum 2 Views Left 07/31/21 * XR Shoulder Minimum 2 Views Right 08/15/21 [facility] Evaluation + Plan note Future Appointments Appointment Date:12/25/2021 10:00:00 AM Scheduled Provider: Location:[facility] Appointment Type:DB Diabetic Individual Visit Appointment Date:01/06/2022 03:00:00 PM Scheduled Provider:EDNISSE SUTTON Location:[facility] Appointment Type:PC OV Diagnostic Tests Pending * Urine Culture 12/13/21 Future Scheduled Tests Laboratory* A1C Hemoglobin 02/28/21 * Lipid Profile 02/28/21 * Vitamin D Level 02/28/21 * Complete Metabolic Panel 02/28/21 Radiology* MA Mammo Screening Bilateral w/ Julien 09/02/21 * NM Myocardial Spect Rest/Stress 12/12/21 * XR Shoulder Minimum 2 Views Left 07/31/21 * XR Shoulder Minimum 2 Views Right 08/15/21 [facility] Evaluation + Plan note Future Appointments Appointment Date:01/22/2022 07:00:00 AM Scheduled Provider: Location:[facility] Appointment Type:CV Procedure - Echo (Adult) Appointment Date:02/05/2022 07:00:00 AM Scheduled Provider: Location:[facility] Appointment Type:DB Diabetic Individual Visit (AOH) Appointment Date:03/19/2022 02:30:00 PM Scheduled Provider: Location:[facility] Appointment Type:DB Diabetic Individual Visit (AOH) Future Scheduled Tests Laboratory* A1C Hemoglobin 02/28/21 * Lipid Profile 02/28/21 * Vitamin D Level 02/28/21 * Complete Metabolic Panel 02/28/21 Radiology* MA Mammo Screening Bilateral w/ Julien 09/02/21 * XR Shoulder Minimum 2 Views Left 07/31/21 * XR Shoulder Minimum 2 Views Right 08/15/21 [facility] Evaluation + Plan note Future Appointments Appointment Date:02/05/2022 07:00:00 AM Scheduled Provider: Location:[facility] Appointment Type:DB Diabetic Individual Visit (AOH) Appointment Date:02/12/2022 04:30:00 PM Scheduled Provider: Location:[facility] Appointment Type:CV OV Appointment Date:03/19/2022 02:30:00 PM Scheduled Provider: Location:[facility] Appointment Type:DB Diabetic Individual Visit (AOH) Future Scheduled Tests Laboratory* Lipid Profile 02/28/21 * Vitamin D Level 02/28/21 Radiology* MA Mammo Screening Bilateral w/ Julien 09/02/21 * XR Shoulder Minimum 2 Views Left 07/31/21 * XR Shoulder Minimum 2 Views Right 08/15/21 [facility] Evaluation + Plan note Future Appointments Appointment Date:05/21/2022 10:00:00 AM Scheduled Provider:DENISSE SUTTON Location:[facility] Appointment Type:PC OV Appointment Date:07/02/2022 03:30:00 PM Scheduled Provider: Location:[facility] [place] Appointment Type:DB Diabetic Individual Visit (AOH) Future Scheduled Tests Laboratory* Thyroid Stimulating Hormone 06/12/22 * A1C Hemoglobin 06/12/22 * Complete Blood Count 06/12/22 * Lipid Profile 06/12/22 * Complete Metabolic Panel 06/12/22 Radiology* MA Mammo Screening Bilateral w/ Julien 09/02/21 * XR Shoulder Minimum 2 Views Left 07/31/21 * XR Shoulder Minimum 2 Views Right 08/15/21 [facility] Evaluation + Plan note Future Appointments Appointment Date:07/17/2022 02:00:00 PM Scheduled Provider: Location:[facility] Appointment Type:CV OV Appointment Date:09/01/2022 04:00:00 PM Scheduled Provider:DENISSE SUTTON Location:[facility] Appointment Type:PC OV Appointment Date:10/08/2022 08:30:00 AM Scheduled Provider: Location:[facility] [place] Appointment Type:DB Diabetic Individual Visit (AOH) Future Scheduled Tests Laboratory* Lipid Profile 05/28/22 * Vitamin D Level 05/28/22 * Complete Metabolic Panel 05/28/22 * N-Terminal proBNP 05/28/22 Radiology* MA Mammo Screening Bilateral w/ Julien 09/02/21 * XR Shoulder Minimum 2 Views Left 07/31/21 * XR Shoulder Minimum 2 Views Right 08/15/21 [facility] evaluation + Plan note Future Appointments Appointment Date:08/11/2022 08:00:00 AM Scheduled Provider: Location:[facility] Appointment Type:CV Procedure - Heart Lab/Hybrid OR Appointment Date:09/03/2022 10:30:00 AM Scheduled Provider: Location:[facility] Appointment Type:CV OV Appointment Date:09/17/2022 02:30:00 PM Scheduled Provider:DENISSE SUTTON Location:[facility] Appointment Type:PC OV Appointment Date:10/08/2022 08:30:00 AM Scheduled Provider: Location:[facility] Appointment Type:DB Diabetic Individual Visit (AOH) Future Scheduled Tests Laboratory* Lipid Profile 05/28/22 * Vitamin D Level 05/28/22 * Complete Metabolic Panel 05/28/22 Radiology* MA Mammo Screening Bilateral w/ Julien 09/02/21 * XR Shoulder Minimum 2 Views Right 08/15/21 [facility] Evaluation + Plan note Future Appointments Appointment Date:09/03/2022 10:30:00 AM Scheduled Provider: Location:[facility] Appointment Type:CV OV Appointment Date:09/17/2022 02:30:00 PM Scheduled Provider:DENISSE SUTTON Location:[facility] Appointment Type:PC OV Appointment Date:10/08/2022 08:30:00 AM Scheduled Provider: Location:[facility] Appointment Type:DB Diabetic Individual Visit (AOH) Future Scheduled Tests Laboratory* Lipid Profile 05/28/22 * Vitamin D Level 05/28/22 * Complete Metabolic Panel 05/28/22 Radiology* MA Mammo Screening Bilateral w/ Julien 09/02/21 * XR Shoulder Minimum 2 Views Right 08/15/21 [facility] Evaluation + Plan note Future Appointments Appointment Date:09/03/2022 10:30:00 AM Scheduled Provider: Location:[facility] Appointment Type:CV OV Appointment Date:09/17/2022 02:30:00 PM Scheduled Provider:DENISSE SUTTON Location:[facility] Appointment Type:PC OV Appointment Date:10/08/2022 08:30:00 AM Scheduled Provider: Location:[facility] Appointment Type:DB Diabetic Individual Visit (AOH) Future Scheduled Tests Laboratory* Lipid Profile 05/28/22 * Vitamin D Level 05/28/22 * Complete Metabolic Panel 05/28/22 Radiology* MA Mammo Screening Bilateral w/ Julien 09/02/21 [facility] Evaluation + Plan note Future Appointments Appointment Date:12/30/2022 03:00:00 PM Scheduled Provider:DENISSE SUTTON Location:[facility] Appointment Type:PC Wellness Medicare Appointment Date:01/09/2023 03:30:00 PM Scheduled Provider: Location:[facility] [place] Appointment Type:DB Diabetic Individual Visit (AOH) Future Scheduled Tests Laboratory* Lipid Profile 05/28/22 * Vitamin D Level 05/28/22 * Complete Metabolic Panel 05/28/22 [facility] Evaluation + Plan note Future Appointments Appointment Date:02/09/2023 03:30:00 PM Scheduled Provider: Location:[facility] [place] Appointment Type:DB Diabetic Individual Visit (AOH) Appointment Date:02/24/2023 03:30:00 PM Scheduled Provider: Location:[facility] Appointment Type:CV OV Appointment Date:03/10/2023 03:30:00 PM Scheduled Provider: Location:[facility] Appointment Type:MA Mammogram Screening Bilateral w/ Julien Appointment Date:04/22/2023 07:30:00 AM Scheduled Provider:DENISSE SUTTON Location:[facility] Appointment Type:PC OV Future Scheduled Tests Laboratory* A1C Hemoglobin 05/02/23 * Lipid Profile 05/02/23 * Lipid Profile 05/28/22 * Vitamin D Level 05/02/23 * Vitamin D Level 05/28/22 * Complete Metabolic Panel 05/02/23 * Complete Metabolic Panel 05/28/22 Radiology* MA Mammo Screening Bilateral w/ Julien 03/10/23 [facility] Evaluation + Plan note Future Appointments Appointment Date:05/12/2023 04:15:00 PM Scheduled Provider: Location:[facility] Appointment Type:CV OV Appointment Date:06/03/2023 02:00:00 PM Scheduled Provider:DENISSE SUTTON Location:[facility] Appointment Type:PC OV Follow Up Appointment Date:06/08/2023 03:30:00 PM Scheduled Provider: Location:[facility] Appointment Type:MEDS - Diabetic Individual Visit Future Scheduled Tests Laboratory* A1C Hemoglobin 2/3/24 * Lipid Profile 2/3/24 * Lipid Profile 05/28/22 * Vitamin D Level 04/29/23 * Vitamin D Level 05/02/23 * Vitamin D Level 05/28/22 * Complete Metabolic Panel 05/02/23 * Complete Metabolic Panel 05/28/22 Radiology* MA Mammo Screening Bilateral w/ Julien 03/11/23 * MA Mammo Screening Bilateral w/ Julien 03/11/23 [facility] Evaluation + Plan note Future Appointments Appointment Date:06/03/2023 02:00:00 PM Scheduled Provider:DENISSE SUTTON Location:[facility] Appointment Type:PC OV Follow Up Appointment Date:06/08/2023 03:30:00 PM Scheduled Provider: Location:[facility] Appointment Type:MEDS - Diabetic Individual Visit Future Scheduled Tests Laboratory* Thyroid Stimulating Hormone 09/10/23 * A1C Hemoglobin 05/02/23 * Complete Blood Count 09/10/23 * Lipid Profile 05/02/23 * Lipid Profile 05/28/22 * Lipid Profile 09/10/23 * Vitamin D Level 04/29/23 * Vitamin D Level 05/02/23 * Vitamin D Level 05/28/22 * Complete Metabolic Panel 05/02/23 * Complete Metabolic Panel 05/28/22 * Complete Metabolic Panel 09/10/23 Radiology* MA Mammo Screening Bilateral w/ Julien 03/11/23 * MA Mammo Screening Bilateral w/ Julien 03/11/23 [facility] Evaluation + Plan note Future Appointments Appointment Date:09/07/2023 03:30:00 PM Scheduled Provider: Location:[facility] Appointment Type:MEDS - Diabetic Individual Visit Appointment Date:10/07/2023 09:00:00 AM Scheduled Provider: Location:IR Appointment Type:IR Central Venous Cath Remove W/OPump Appointment Date:10/13/2023 03:30:00 PM Scheduled Provider:DENISSE SUTTON Location:[facility] Appointment Type:PC OV Follow Up Appointment Date:10/27/2023 03:15:00 PM Scheduled Provider: Location:[facility] Appointment Type:CV OV Future Scheduled Tests Laboratory* A1C Hemoglobin 05/02/23 * Lipid Profile 05/02/23 * Vitamin D Level 04/29/23 * Vitamin D Level 05/02/23 * Complete Metabolic Panel 05/02/23 Radiology* IR Central Venous Cath Remove w/o Pump 10/07/23 * MA Mammo Screening Bilateral w/ Julien 03/11/23 * MA Mammo Screening Bilateral w/ Julien 03/11/23 [facility] Evaluation + Plan note Future Appointments Appointment Date:10/13/2023 03:30:00 PM Scheduled Provider:DENISSE SUTTON Location:[facility] Appointment Type:PC OV Follow Up Appointment Date:10/27/2023 03:15:00 PM Scheduled [facility]: [facility] Type:CV OV Appointment Date:01/11/2024 03:00:00 PM Scheduled Provider: Location:[facility] Appointment Type:MEDS - Diabetic Individual Visit Future Scheduled Tests Laboratory* A1C Hemoglobin 05/02/23 * Lipid Profile 05/02/23 * Vitamin D Level 04/29/23 * Vitamin D Level 05/02/23 * Complete Metabolic Panel 05/02/23 Radiology* MA Mammo Screening Bilateral w/ Julien 03/11/23 * MA Mammo Screening Bilateral w/ Julien 03/11/23 [facility] Evaluation + Plan note Future Appointments Appointment Date:01/12/2024 03:00:00 PM Scheduled Provider:DENISSE SUTTON Location:[facility] Appointment Type:PC Wellness Medicare Appointment Date:01/12/2024 03:30:00 PM Scheduled Provider: Location:[facility] Appointment Type:MEDS - Diabetic Individual Visit Future Scheduled Tests Laboratory* Thyroid Stimulating Hormone 04/28/24 * A1C Hemoglobin 05/02/23 * Complete Blood Count 04/28/24 * Lipid Profile 04/28/24 * Lipid Profile 05/02/23 * Vitamin D Level 04/29/23 * Vitamin D Level 05/02/23 * Complete Metabolic Panel 04/28/24 * Complete Metabolic Panel 05/02/23 Radiology* MA Mammo Screening Bilateral w/ Julien 03/11/23 * MA Mammo Screening Bilateral w/ Julien 03/11/23 * XR Spine Lumbar AP/LAT/FLEX/EXT 10/13/23 [facility] Evaluation + Plan note Future Appointments Appointment Date:02/16/2024 03:00:00 PM Scheduled Provider:FLORY KELLEY MD Location: [facility] Appointment Type: CUSHION SEWER Appointment Date:04/13/2024 03:30:00 PM Scheduled Provider:DENISSE SUTTON Location:[facility] Appointment Type:PC OV Appointment Date:07/14/2024 03:30:00 PM Scheduled Provider: Location:[facility] Appointment Type:MEDS - Diabetic Individual Visit Future Scheduled Tests Laboratory* Thyroid Stimulating Hormone 04/28/24 * A1C Hemoglobin 05/02/23 * Complete Blood Count 04/28/24 * Lipid Profile 04/28/24 * Lipid Profile 05/02/23 * Lipid Profile 04/13/24 * Vitamin D Level 04/29/23 * Vitamin D Level 05/02/23 * Complete Metabolic Panel 04/28/24 * Complete Metabolic Panel 05/02/23 * Complete Metabolic Panel 04/13/24 Radiology* MA Mammo Screening Bilateral w/ Julien 03/11/23 * MA Mammo Screening Bilateral w/ Julien 03/11/23 * XR Spine Lumbar AP/LAT/FLEX/EXT 10/13/23 [facility] Evaluation + Plan note Future Appointments Appointment Date:04/28/2024 01:30:00 PM Scheduled Provider:RUIZ REGALADO Location: [place] Appointment Type: CUSHION SEWER Appointment Date:05/03/2024 03:45:00 PM Scheduled Provider:EJ CROW Location:[facility] Appointment Type:CV OV Appointment Date:07/12/2024 04:00:00 PM Scheduled Provider:DENISSE SUTTON Location:[facility] Appointment Type:PC OV Appointment Date:07/14/2024 03:30:00 PM Scheduled Provider: Location:[facility] Appointment Type:MEDS - Diabetic Individual Visit Future Scheduled Tests Laboratory* A1C Hemoglobin 05/02/23 * Lipid Profile 05/02/23 * Lipid Profile 04/13/24 * Vitamin D Level 04/29/23 * Vitamin D Level 05/02/23 * Complete Metabolic Panel 05/02/23 * Complete Metabolic Panel 04/13/24 Radiology* XR Spine Lumbar AP/LAT/FLEX/EXT 10/13/23 [facility] evaluation + Plan note Future Appointments Appointment Date:10/13/2024 04:00:00 PM Scheduled Provider: Location:[facility] [place] Appointment Type:MEDS - Diabetic Individual Visit Appointment Date:11/11/2024 03:30:00 PM Scheduled Provider: Location:RAD Appointment Type:MA Mammogram Screening Bilateral w/ Julien Appointment Date:11/22/2024 04:00:00 PM Scheduled Provider:DENISSE SUTTON Location:[facility] Appointment Type:PC OV Future Scheduled Tests Laboratory* Lipid Profile 04/13/24 * Complete Metabolic Panel 04/13/24 Radiology* MA Mammo Screening Bilateral w/ Julien 11/11/24 * XR Spine Lumbar AP/LAT/FLEX/EXT 10/13/23 [facility] evaluation + Plan note Future Appointments Appointment Date:10/13/2024 04:00:00 PM Scheduled Provider: Location:[facility] [place] Appointment Type:MEDS - Diabetic Individual Visit Appointment Date:10/25/2024 02:45:00 PM Scheduled Provider:EJ CROW Location:[facility] Appointment Type:CV OV Appointment Date:11/11/2024 03:30:00 PM Scheduled Provider: Location:RAD Appointment Type:MA Mammogram Screening Bilateral w/ Julien Appointment Date:11/22/2024 04:00:00 PM Scheduled Provider:DENISSE SUTTON Location:[facility] Appointment Type:PC OV Future Scheduled Tests Laboratory* Lipid Profile 04/13/24 * Complete Metabolic Panel 04/13/24 Radiology* MA Mammo Screening Bilateral w/ Julien 11/11/24 * XR Spine Lumbar AP/LAT/FLEX/EXT 10/13/23 [facility] evaluation note* Diagnosis Onset Date Resolution Status Closed head injury acute Community acquired pneumonia acute Concussion acute Contusion of face, scalp and neck acute ESRD (end stage renal disease) on dialysis acute History of CVA (cerebrovascular accident) acute Hypoxia acute History of coronary artery stent placement June, chronic Hyperlipidemia chronic Hypertension [facility] Work Phone: Evaluation note* Diagnosis Onset Date Resolution Status Closed head injury acute Concussion acute Contusion of face, scalp and neck acute ESRD (end stage renal disease) on dialysis acute History of CVA (cerebrovascular accident) acute Hypoxia acute History of coronary artery stent placement June, chronic Hyperlipidemia chronic Hypertension chronic Acute alteration in mental status acute [facility] Work Phone: Evaluation note* Diagnosis Onset Date Resolution Status ESRD (end stage renal disease) on dialysis [facility] Work Phone: Evaluation note* Diagnosis Onset Date Resolution Status ESRD (end stage renal disease) on dialysis chronic ESRD (end stage renal disease) on dialysis [facility] Work Phone: Evaluation note* Diagnosis Onset Date Resolution Status ESRD (end stage renal disease) on dialysis chronic ESRD (end stage renal disease) on dialysis chronic ESRD (end stage renal disease) on dialysis chronic ESRD (end stage renal disease) on dialysis [facility] Work Phone: Hospital course Narrative No data available for this section [facility] Hospital Discharge instructions No data available for this section [facility] Note* LARRY BARRERA MD: SIGN, VERIFY Event Display: EKG [ED AOH] - CV Authored Date: [id number] [facility] Note* NATE CROW MD: SIGN, VERIFY Event Display: Cardiac Catheterization -CV Authored Date: [id number] [facility] Progress note No data available for this section [facility] Summary note* MICHAEL Candelario: PERFORM Event Display: Patient Summary Documents Authored Date: [id number] [facility] Summary Purpose Family History No Family History Records FoundUnknown Family Member Name Dates Details Diabetes Mellitus: Mother(V1 8.0) Status:Active Diabetes Mellitus: Brother(V 18.0) Status:Active Hypertension: Mother(V17.49) Status:Active Acute Myocardial Infarction: Father(V17.3) Status:Active Father At Age 44 : Father Status:Active Unknown Family Member Name Dates Details Diabetes Mellitus: Mother(V1 8.0) Status:Active Diabetes Mellitus: Brother(V 18.0) Status:Active Hypertension: Mother(V17.49) Status:Active Acute Myocardial Infarction: Father(V17.3) Status:Active Father At Age 44 : Father Status:Active Relationship Condition Age at Onset Recorded Date/T nataly mother Diabetes mellitus Unknown Cardiac disease Unknown Hypertension Unknown father Hypertension Unknown brother Cardiac disease Unknown sister Cardiac disease Unknown Diabetes mellitus Unknown Advance Directives No Advanced Directives Records Found Advance Directive Response Recorded Date/ Time Advance Directives No April 10:11am Living Will No July 12, 2022 12:59pm Power of District Plant Engineer No July 12 12:59pm Advance Directive Response Recorded Date/ Time Advance Directives No April 10:11am Living Will No July 12, 2022 5:25pm Power of District Plant Engineer No July 12 5:25pm Advance Directive Response Recorded Date/ Time Advance Directives No April 10:11am Living Will No July 22, 2022 7:01pm Power of District Plant Engineer No July 22 7:01pm Advance Directive Response Recorded Date/ Time Advance Directives No January 22, 2023 7:10am Living Will No January 22 7:10am Power of District Plant Engineer No January 22, 2023 7:10am Advance Directive Response Recorded Date/ Time Advance Directives No January 22, 2023 6:10am Living Will No April 23 8:29am Power of District Plant Engineer No April 23, 2023 8:29am Advance Directive Response Recorded Date/ Time Advance Directives No January 22, 2023 7:10am Living Will No April 23 9:29am Power of District Plant Engineer No April 23, 2023 9:29am Chief Complaint and Reason for Visit Chief Complaint RIGHT LOWER LOBE PNE UMONIA, HYPOXIA, BLUNT TRAUMA Reason for Visit Closed head injury Community acquired pneumonia Concussion Contusion of face, scalp and neck ESRD (end stage renal disease) on dialysis History of CVA (cerebrovascular accident) Hypoxia History of coronary artery stent placement Hyperlipidemia Hypertension Chief Complaint RIGHT LOWER LOBE PNE UMONIA, HYPOXIA, BLUNT TRAUMA RIGHT LOWER LOBE PNEUMONIA, HYPOXIA, BLUNT TRAUMA RIGHT LOWER LOBE PNEUMONIA, HYPOXIA, BLUNT TRAUMA RIGHT LOWER LOBE PNEUMONIA, HYPOXIA, BLUNT TRAUMA RIGHT LOWER LOBE PNEUMONIA, HYPOXIA, BLUNT TRAUMA Reason for Visit Closed head injury Community acquired pneumonia Concussion Contusion of face, scalp and neck ESRD (end stage renal disease) on dialysis History of CVA (cerebrovascular accident) Hypoxia History of coronary artery stent placement Hyperlipidemia Hypertension Chief Complaint RIGHT LOWER LOBE PNE UMONIA, HYPOXIA, BLUNT TRAUMA RIGHT LOWER LOBE PNEUMONIA, HYPOXIA, BLUNT TRAUMA RIGHT LOWER LOBE PNEUMONIA, HYPOXIA, BLUNT TRAUMA RIGHT LOWER LOBE PNEUMONIA, HYPOXIA, BLUNT TRAUMA RIGHT LOWER LOBE PNEUMONIA, HYPOXIA, BLUNT TRAUMA CONFUSION, MENTAL STATUS CONFUSION, MENTAL STATUS Reason for Visit Closed head injury Concussion Contusion of face, scalp and neck ESRD (end stage renal disease) on dialysis History of CVA (cerebrovascular accident) Hypoxia History of coronary artery stent placement Hyperlipidemia Hypertension Acute alteration in mental status Chief Complaint CONSULT-AVF PLACEMEN T pre op Atherosclerotic heart disease of [place] Reason for Visit ESRD (end stage gerald l disease) on dialysis Chief Complaint CONSULT-AVF PLACEMEN T pre op Atherosclerotic heart disease of [place] N18.6 RIGHT ARM FISTULOGRAM/REGIONAL BLOCK/CATH L N18.6 RIGHT ARM FISTULOGRAM/REGIONAL BLOCK/CATH L Reason for Visit ESRD (end stage gerald l disease) on dialysis ESRD (end stage renal disease) on dialysis Chief Complaint N18.6 RIGHT ARM FIST ULOGRAM/REGIONAL BLOCK/CATH L N18.6 RIGHT ARM FISTULOGRAM/REGIONAL BLOCK/CATH L 3 W POST-OP DISCUSS SURGERY Right arm Arteriovenous Fistula,Cre Right arm Arteriovenous Fistula,Cre Reason for Visit ESRD (end stage gerald l disease) on dialysis ESRD (end stage renal disease) on dialysis ESRD (end stage renal disease) on dialysis ESRD (end stage renal disease) on dialysis Chief Complaint DISCUSS SURGERY Right arm Arteriovenous Fistula,Cre Right arm Arteriovenous Fistula,Cre Arteriovenous Fistula,Creation,rt arm 4 W POST-OP 5 W FU ESRD Reason for Visit ESRD (end stage gerald l disease) on dialysis ESRD (end stage renal disease) on dialysis ESRD (end stage renal disease) on dialysis ESRD (end stage renal disease) on dialysis Additional Source Comments INFORMATION SOURCE (unrecogn ized section and content) DATE CREATED AUTHOR 06/16/2018 [facility] DATE CREATED AUTHOR AUTHOR'S ORGANIZ ATION 04/08/2019 [facility] DATE CREATED AUTHOR AUTHOR'S ORGANIZ ATION 04/19/2019 [facility] DATE CREATED AUTHOR AUTHOR'S ORGANIZ ATION 08/31/2021 [employer] DATE CREATED AUTHOR AUTHOR'S ORGANIZ ATION 09/28/2021 [facility] DATE CREATED AUTHOR AUTHOR'S ORGANIZ ATION 09/11/2023 [facility] DATE CREATED AUTHOR AUTHOR'S ORGANIZ ATION 11/25/2023 [facility] ([place]) DATE CREATED AUTHOR AUTHOR'S ORGANIZ ATION 08/10/2024 [facility] DATE CREATED AUTHOR AUTHOR'S ORGANIZ ATION 10/07/2024 [facility] Care Team (unrecognized sect ion and content) Team Status: Active Member Role Status Dates Denisse Sutton CUSHION SEWER, CUSHION SEWER-C Family Provider Active Denisse Sutton CUSHION SEWER, CUSHION SEWER-C Primary Care Provider Active Team Status: Active Member Role Status Dates Denisse Sutton CUSHION SEWER, CUSHION SEWER-C Primary Care Provider Active Dr. Samm Talley MD Emergency Provider Active Dr. Patsy Wyman DO Admit Provider, Attending Pro vider Active Team Status: Active Member Role Status Dates Denisse Sutton CUSHION SEWER, CUSHION SEWER-C Primary Care Provider Active Dr. Samm Talley MD Emergency Provider Active Dr. Patsy Wyman DO Admit Provider, Attending Provider, Other Provider Active Team Status: Active Member Role Status Dates Denisse Sutton CUSHION SEWER, CUSHION SEWER-C Primary Care Provider Active Dr. Samm Talley MD Emergency Provider Active Dr. Patsy Wyman DO Admit Provider, Attending Provider, Other Provider Active Dr. Sanaz Gomez MD Other Provider Active Team Status: Active Member Role Status Dates Denisse Sutton CUSHION SEWER, CUSHION SEWER-C Primary Care Provider Active Dr. Samm Talley MD Emergency Provider Active Dr. Patsy Wyman DO Admit Provider, Other Provide r Active Dr. Sanaz Gomez MD Other Provider Active Dr. Mahamde Dunn MD Attending Provider, Other Provi darron Active Team Status: Inactive Member Role Status Dates Denisse Sutton CUSHION SEWER, CUSHION SEWER-C Primary Care Provider Active Dr. Samm Talley MD Emergency Provider Active Dr. Patsy Wyman DO Admit Provider, Other Provide r Active Dr. Sanaz Gomez MD Other Provider Active Dr. Mahamed Dunn MD Attending Provider Active Team Status: Active Member Role Status Dates Denisse Sutton CUSHION SEWER, CUSHION SEWER-C Primary Care Provider Active Dr. Patsy Montenegro MD Emergency Provider Active Dr. Patsy Wyman DO Admit Provider, Attending Provider, Other Provider Active Team Status: Active Member Role Status Dates Denisse Sutton CUSHION SEWER, CUSHION SEWER-C Primary Care Provider Active Dr. Jalen Romano MD Attending Provider Active Team Status: Inactive Member Role Status Dates Denisse Sutton CUSHION SEWER, CUSHION SEWER-C Primary Care Provider Active Dr. Patsy Montenegro MD Emergency Provider Active Dr. Patsy Wyman DO Admit Provider, Attending Pro vider Active Team Status: Inactive Member Role Status Dates Denisse Sutton CUSHION SEWER, CUSHION SEWER-C Primary Care Provider, Referri ng Provider Active Dr. Cipriano Trujillo MD Attending Provider Active Team Status: Active Member Role Status Dates Denisse Sutton CUSHION SEWER, CUSHION SEWER-C Primary Care Provider Active Dr. Cipriano Trujillo MD Attending Provider Active Team Status: Inactive Member Role Status Dates Denisse Sutton CUSHION SEWER, CUSHION SEWER-C Primary Care Provider Active Dr. Cipriano Trujillo MD Attending Provider, Referring Pro vider Active Team Status: Active Member Role Status Dates Denisse Sutton CUSHION SEWER, CUSHION SEWER-C Primary Care Provider Active Dr. Cipriano Trujillo MD Attending Provider, Referring Provider, Other Provider Active Team Status: Inactive Member Role Status Dates Denisse Sutton CUSHION SEWER, CUSHION SEWER-C Primary Care Provider, Referri ng Provider Active MARLY Shirley Attending Provider Active Team Status: Active Member Role Status Dates Denisse Sutton CUSHION SEWER, CUSHION SEWER-C Primary Care Provider Active Dr. Cipriano Trujillo MD Attending Provider, Referring Pro vider Active Team Status: Inactive Member Role Status Dates Denisse Sutton CUSHION SEWER, CUSHION SEWER-C Primary Care Provider, Referri ng Provider Active Dr. Cipriano Trujillo MD Active MARLY Shirley Attending Provider Active Steel Sampler Relationship Specialty Start Date End Date TariDenisse salcedo CNP [address] [place] [id number] PCP - General Family Medicine 09/03/23 Denisse Sutton CNP [address] [place] [address] Referring Family Medicine 07/09/18 Care Team (unrecognized sect ion and content) Care Team Personnel Name: Maria E Industrial Roof Plumber Kelli PT Position: P3 Scheduling - Graduate Teaching Assistant Advanced Member Role: Other Name: DENISES SUTTON APRN-WASTE PICKER Position: P4 Advanced Practice Nurse Med Service: Active Provider Member Role: Primary Care Physician Address: Address: [address] [place] [address] Care Team Related Persons Name: VASQUEZJune Care Team Personnel Name: Josiah Sanderson Clerk Kleli PT Position: P3 Scheduling - Graduate Teaching Assistant Advanced Member Role: Other Name: DENISSE SUTTON APRN-NILES Position: P4 Advanced Practice Nurse Med Service: Active Provider Member Role: Primary Care Physician Address: Address: [address] Care Team Related Persons Name: TIFFANIJune Care Team Personnel Name: Josiah Sanderson Clerk Kelli PT Position: P3 Scheduling - Graduate Teaching Assistant Advanced Member Role: Other Name: DENISSE SUTTON APRN-WASTE PICKER Position: P4 Advanced Practice Nurse Member Role: Primary Care Physician Address: Address: [address] Care Team Related Persons Name: June Care Team Personnel Name: Maria E Industrial Roof Plumber Kelli PT Position: P3 Scheduling - Graduate Teaching Assistant Advanced Member Role: Other Name: DENISSE SUTTON APRN-WASTE PICKER Position: P4 Advanced Practice Nurse Med Service: Active Provider Member Role: Primary Care Physician Address: Address: [address] Care Team Related Persons Name: CONCHITAJune Care Team Personnel Name: Maria E Industrial Roof Plumber Kelli PT Position: P3 Scheduling - Graduate Teaching Assistant Advanced Member Role: Other Name: DENISSE SUTTON ANIMAL FEEDER-WASTE PICKER Position: P4 Advanced Practice Nurse Med Service: Active Provider Member Role: Primary Care Physician Address: Address: [address] Care Team Related Persons Name: June Care Team Personnel Name: Maria E, Industrial Roof Plumber Kelli PT Position: P3 Scheduling - Graduate Teaching Assistant Advanced Member Role: Other Name: DENISSE SUTTON ANIMAL FEEDER-WASTE PICKER Position: P4 Advanced Practice Nurse Med Service: Active Provider Member Role: Primary Care Physician Address: Address: [address] Care Team Related Persons Name: June Care Team Personnel Name: Maria E, Industrial Roof Plumber Kelli PT Position: P3 Scheduling - Graduate Teaching Assistant Advanced Member Role: Other Name: DENISSE SUTTON ANIMAL FEEDER-WASTE PICKER Position: P4 Advanced Practice Nurse Med Service: Active Provider Member Role: Primary Care Physician Address: Address: [address] Care Team Related Persons Name: June Care Team Personnel Name: Maria E, Industrial Roof Plumber Kelli PT Position: P3 Scheduling - Graduate Teaching Assistant Advanced Member Role: Other Name: DENISSE SUTTON ANIMAL FEEDER-WASTE PICKER Position: P4 Advanced Practice Nurse Med Service: Active Provider Member Role: Primary Care Physician Address: Address: [address] Care Team Related Persons Name: June Care Team Personnel Name: Maria E Industrial Roof Plumber Kelli PT Position: P3 Scheduling - Graduate Teaching Assistant Advanced Member Role: Other Name: DENISSE SUTTON ANIMAL FEEDER-WASTE PICKER Position: P4 Advanced Practice Nurse Med Service: Active Provider Member Role: Primary Care Physician Address: Address: [address] Care Team Related Persons Name: June Care Team Personnel Name: Maria E, Industrial Roof Plumber Kelli PT Position: P3 Scheduling - Graduate Teaching Assistant Advanced Member Role: Other Name: LORSON, DENISSE ANIMAL FEEDER-WASTE PICKER Position: P4 Advanced Practice Nurse Member Role: Primary Care Physician Address: Address: [address] Care Team Related Persons Name: VASQUEZJune Care Team Personnel Name: Maria E, Industrial Roof Plumber Kelli PT Position: P3 Scheduling - Graduate Teaching Assistant Advanced Member Role: Other Name: DENISSE SUTTON Position: P4 Advanced Practice Nurse Member Role: Primary Care Physician Address: Address: [address] Care Team Related Persons Name: TIFFANIJune Care Team Personnel Name: Maria E, Industrial Roof Plumber Kelli PT Position: P3 Scheduling - Graduate Teaching Assistant Advanced Member Role: Other Name: DENISSE SUTTON Position: P4 Advanced Practice Nurse Member Role: Primary Care Physician Address: Address: [address] Care Team Related Persons Name: June Care Team Personnel Name: Maria E, Industrial Roof Plumber Kelli PT Position: P3 Scheduling - Graduate Teaching Assistant Advanced Member Role: Other Name: DENISSE SUTTON Position: P4 Advanced Practice Nurse Member Role: Primary Care Physician Address: Address: [address] Care Team Related Persons Name: CONCHITAJune Goals (unrecognized section and content) Goals may be documented in a n alternate section Source Comments (unrecognize d section and content) In the event this informatio n is protected by the Federal Confidentiality of Alcohol and Drug Abuse Patient Records regulations: The Federal rules restrict any use of the information to criminally investigate or prosecute any alcohol or drug abuse patient.[facility] Reason for Visit (unrecogniz ed section and content) Specialty Diagnoses / Procedures Referred By Contac t Referred To Contact Diagnoses Chronic kidney disease, unspecified CKD stage Procedures RMVL TAMIKA CVC W/O SUBQ PORT/AVIATION MEDICINE SPECIALIST REMOVAL CATHETER PERMCATH Interventional Radiology [address] [place] [address] Referral ID Status Reason Start Date Expiration Date Visits Re quested Visits Authorized [id number] 1 1 PRN Active and Recently Administ ered Medications (unrecognized section and content) Medication Order 09/06/2023 09/07/2023 09/08/2023 lidocaine (PF) 10 mg/mL (1 %) injection (XYLOCAINE) (CANCELED) SUBCUTANEOUS, NEEDED, Starting on Thu09/08/23 at 1025, Until Thu09/08/23 at 1040, Intraprocedure 1025 (Given - Provid er: Jeremy Dickinson MD, ) FOR RECORDS PERTAINING TO PATIENTS WHO ARE OR HAVE BEEN ENROLLED IN A CHEMICAL DEPENDENCY/SUBSTANCEABUSE PROGRAM, SOME INFORMATION MAY BE OMITTED. This clinical summary was aggregated from multiple sources. Caution should be exercised in using it in the provision of clinical care. This summary normalizes information from multiple sources, and as a consequence, information in this document may materially change the coding, format and clinical context of patient data. In addition, data may be omitted in some cases. CLINICAL DECISIONS SHOULD BE BASED ON THE PRIMARY CLINICAL RECORDS. [facility]. provides no warranty or guarantee of the accuracy or completeness of information in this document.
[2024-10-09 09:30] LABS: Hematocrit 31.3 % (37-47); Hemoglobin 10.4 g/dL (12.0-15.0); Immature Granulocytes Count 0.030 X10^3/uL (0.0-0.0); Mean Corp Hgb Conc 33.2 g/dL (32-36); Mean Corpuscular Volume 96.0 fL (81-99); Mean Platelet Vol. 12.7 fl (6.2-12.0); NRBC Flagged by Analyzer 0 % (0-5); POSITIVE DIFFERENTIAL YES; Platelet Count 153 K/mm3 (150-450); RBC Distribution Width CV 15.9 % (11.6-14.6); RBC Distribution Width SD 55.8 fl (35.1-43.9); Red Blood Count 3.26 M/mm3 (4.2-5.4); White Blood Count 6.1 K/mm3 (4.4-11.0)
--- NOTE | 2024-10-09 09:50 | RAD_ITS ---
PROCEDURE: CHEST PA AND LATERAL 10/09/2024 REASON FOR EXAM: DYSPNEA TECHNIQUE: CHEST PA AND LATERAL COMPARISON: Chest radiograph 07/31/2024. FINDINGS: Hardware: None. Heart: Mild cardiomegaly. Mediastinum: There are atherosclerotic calcifications of the thoracic aorta. Lungs: Low lung volumes. Right perihilar opacities. No obvious pleural effusion or pneumothorax. Bones: Degenerative changes are identified within the thoracic spine. RAD/Chest PA and Lateral IMPRESSION: 1. Right perihilar opacities, which may represent pneumonitis/pneumonia. 2. Stable mild cardiomegaly. Reading Location: [id number]
[2024-10-09 09:56] LABS: Anion Gap 12 (5-15); BUN 34 mg/dL (4-19); BUN/Creat Ratio 6.6 RATIO (10-20); Calcium,Total 8.8 mg/dL (7.6-11.0); Carbon Dioxide 29.0 mmol/L (21.0-32.0); Chloride 95 mmol/L (98-108); Estimated Creatinine Clearance 13.86 ml/min (50-250); Glucose 104 mg/dL (70-99); Potassium 4.5 mmol/L (3.3-5.1)
--- NOTE | 2024-10-09 13:05 | PCM.HP.STD ---
[facility] - General General Date of Service: 10/09/24 Chief Complaint: Shortness of breath HPI Narrative ZAYDA ANTOINE, is a 58 F who presents with shortness of breath. This is a 58-year-old female with history of end-stage renal disease on dialysis every Thursday. Has been short of breath for the past 2 days. Having a cough, also as well has ear pain feel that she has a ear infection. Presented to the emergency room and had a chest x-ray showed possible pneumonia patient received ceftriaxone azithromycin. They ambulated her and she dropped on 85% on room air, patient is not on oxygen at home. The hospital service was contacted for admission. Patient denies any recent weight change nor any lower extremity edema. [facility] Medical History Anemia of chronic disease ESRD (end stage renal disease) History of diabetes mellitus Chronic kidney disease with end stage renal disease on dialysis due to type 2 diabetes mellitus Hypoxia ESRD (end stage renal disease) on dialysis Dependence on renal dialysis Easy bruising Dietary restriction History of edema Hx of cardiovascular stress test Hx of echocardiogram Cardiology follow-up encounter TIA (transient ischemic attack) Acute alteration in mental status Community acquired pneumonia ESRD (end stage renal disease) on dialysis Wears glasses Insulin dependent diabetes mellitus Low iron Former smoker Cardiology follow-up encounter Chronic heart failure with preserved ejection fraction (HFpEF) History of non-ST elevation myocardial infarction (NSTEMI) (01/20/21) Debility COVID-19 (01/20/21) Inability to walk Generalized weakness Non-STEMI (non-ST elevated myocardial infarction) (01/20/21) Ischemic cerebrovascular accident (CVA) (04/2018) Respiratory insufficiency Hypoxia Anxiety Bilateral carotid bruits Hyperlipidemia Malignant hypertension Headache Type 2 diabetes mellitus without complication Essential hypertension Atherosclerosis of coronary artery of [place] heart without angina pectoris GERD (gastroesophageal reflux disease) Depression History of renal calculi History of cholelithiasis Morbid obesity Acute renal injury due to circulatory failure Home Medications ?Medication ?Instructions ?Recorded ?Last Taken ?Type aspirin 81 mg chewable tablet 81 mg PO DAILY@0800 HEART HEALTH 07/15/18 04/26/23 History atorvastatin 80 mg tablet 80 mg PO QHS CHOLESTEROL 08/04/18 04/26/23 History torsemide 100 mg tablet 50 mg PO BID diuretic 04/14/19 04/26/23 History melatonin 5 mg tablet 5 mg PO HS PRN Sleep 08/03/20 01/19/21 History carvedilol 12.5 mg tablet 6.25 mg PO BID blood pressure 09/20/20 04/27/23 History acetaminophen 325 mg tablet 650 mg (2 x 325 mg) PO Q6H PRN PRN 10/03/20 Unknown Rx (Tylenol) Pain 1-10 Or Fever #0 tabs amlodipine 10 mg tablet 10 mg PO DAILY blood pressure 01/20/21 04/27/23 History insulin glargine U-300 conc 300 20 unit subcut BREAKFAST diabetes 03/21/21 04/26/23 History unit/mL (1.5 mL) subcutaneous pen (Toujeo SoloStar U-300 Insulin) gabapentin 300 mg capsule 300 mg PO TID PRN NEUROPATHY 12/10/22 Unknown History allopurinol 100 mg tablet 100 mg PO DAILY 01/13/23 04/26/23 History cholecalciferol (vitamin D3) 50 50 mcg PO DAILY 01/13/23 04/26/23 History mcg (2,000 unit) capsule ezetimibe 10 mg tablet 10 mg PO QHS 01/13/23 04/26/23 History vitamin B complex-vitamin C-folic 1 tab PO DAILY 01/13/23 04/26/23 History acid 0.8 mg tablet (Nephro-Todd) nystatin 100,000 unit/gram topical 1 applic topical BID 14 days #1 11/21/23 Unknown Rx powder ([facility]) BOTTLE hydralazine 100 mg tablet 100 mg PO TID 30 days #0 tabs 12/17/23 Unknown Rx insulin lispro 100 unit/mL See Protocol subcut ACHS #0 mL 12/17/23 Unknown Rx subcutaneous pen (Humalog KwikPen (U-100) Insulin) blood sugar diagnostic (OneTouch 07/31/24 Unknown History Verio test strips) blood-glucose meter (OneTouch 07/31/24 Unknown History Verio Flex Meter) lancets 33 gauge (OneTouch Delica 07/31/24 Unknown History Plus Lancet) latanoprost 0.005 % eye drops 1 drp ophthalmic (eye) QHS 07/31/24 Unknown History ondansetron 4 mg disintegrating 4 mg PO Q6H PRN PRN nausea and 07/31/24 Unknown History tablet vomiting venlafaxine besylate 112.5 mg 112.5 mg PO DAILY 07/31/24 Unknown History tablet,extended release 24 hr gabapentin 100 mg capsule 100 mg PO TID 10/09/24 Unknown History ropinirole 0.25 mg tablet 0.25 mg PO BID 10/09/24 Unknown History Allergy/AdvReac Type Severity Reaction Status Date / Time No Known Allergies Allergy Verified 07/31/24 15:08 Family History Mother Diabetes Heart disease Hypertension Father Hypertension Heart disease Brother Heart disease Hypertension Sister Heart disease Diabetes Surgical History History of surgery History of arteriovenostomy for renal dialysis (~03/2021) History of History of appendectomy History of cholecystectomy History of coronary artery stent placement (06/2016) History of left heart catheterization (05/27/21) Social History household members: family Smoking Status: Former smoker alcohol intake: never substance use type: does not use ROS ROS Narrative All review of systems were negative except as mentioned above in the history of present illness and the other review of systems. Vital Signs Vital Signs Vital Signs: 10/09/24 08:24 10/09/24 08:31 10/09/24 09:23 Temperature 36.8 C 36.9 C Temperature Source Oral Oral Pulse Rate 70 Respiratory Rate 67 H 14 Respiratory Effort Normal Respiratory Depth Normal Respiratory Pattern Normal Blood Pressure 152/69 H 168/80 H Blood Pressure Mean 96 109 Pulse Ox 95 98 Oxygen Delivery Method Room Air Nasal Cannula Nasal Cannula Oxygen Flow Rate (L/min) 2 10/09/24 09:33 10/09/24 10:00 10/09/24 11:00 Temperature 37.1 C 36.9 C Temperature Source Oral Oral Pulse Rate 69 70 Respiratory Rate 18 20 H Respiratory Effort Respiratory Depth Respiratory Pattern Blood Pressure 155/79 H 136/77 H Blood Pressure Mean 104 96 Pulse Ox 97 99 99 Oxygen Delivery Method Nasal Cannula Nasal Cannula Nasal Cannula Oxygen Flow Rate (L/min) 2 2 2 10/09/24 12:00 Temperature Temperature Source Pulse Rate 76 Respiratory Rate 16 Respiratory Effort Respiratory Depth Respiratory Pattern Blood Pressure 136/77 H Blood Pressure Mean 96 Pulse Ox 98 Oxygen Delivery Method Nasal Cannula Oxygen Flow Rate (L/min) 2 Weight Weight: 113.7 kg Body Mass Index (BMI) 47.3 Physical Exam Narrative POCUS: Indication is for dyspnea. Using limited FAST exam, visualize the IVC I did show that it was collapsible with inspiration. Heart was visually but was rather obscured by the abdomen so was not a good view of that but grossly appeared normal. Const alert and no apparent distress HEENT normocephalic and head/scalp atraumatic Resp normal respiratory effort and no retractions Resp Narrative: Bibasilar crackles Cardio regular rate, regular rhythm, S1 normal heart sound and S2 normal heart sound GI normal to inspection, nondistended, normoactive bowel sounds, soft to palpation, non-tender and non-distended GI Narrative: Obese. Extremity normal to inspection Neuro Sensorium / Orientation: awake, alert, oriented to person, oriented to place and oriented to time Psych affect normal Results Lab / Micro Data 10/09/24 09:18 10/09/24 09:18 Labs: Laboratory Results - last 24 hr 10/09/24 09:18: WBC 6.1, RBC 3.26 L, Hgb 10.4 L, Hct 31.3 L, MCV 96.0, MCH 31.9, MCHC 33.2, RDW Std Deviation 55.8 H, RDW Coeff of [place] 15.9 H, Plt Count 153, MPV 12.7 H, Immature Gran % (Auto) 0.500, Neut % (Auto) 68.0, Lymph % (Auto) 8.5 L, Ransom % (Auto) 16.2 H, Eos % (Auto) 6.5 H, Baso % (Auto) 0.3, Absolute Neuts (auto) 4.2, Absolute Lymphs (auto) 0.52 L, Nucleated RBC % 0, Sodium 136, Potassium 4.5, Chloride 95 L, Carbon Dioxide 29.0, Anion Gap 12, BUN 34 H, Creatinine 5.18 H, Estim Creat Clear Calc 13.86 L, Est GFR (MDRD) Non-Af 9 L, BUN/Creatinine Ratio 6.6 L, Glucose 104 H, Calcium 8.8 Micro: Microbiology 10/09/24 09:15 Mucosa - Nose SARS-CoV-2, Influenza & RSV (PCR) - Final Imaging Radiology Impression Chest X-Ray 10/09/24 09:50 IMPRESSION: 1. Right perihilar opacities, which may represent pneumonitis/pneumonia. 2. Stable mild cardiomegaly. Reading Location: [id number] Assessment & Plan Assessment/Plan (1) Pneumonia: PLAN: Suspect pneumococcal Patient received azithromycin and ceftriaxone emergency room. Will continue on the floor. Check urinary antigens for strep and Legionella. Check sputum culture. Pulmonary toilet. Though despite the patient not having a fever nor leukocytosis, her post POCUS and physical exam not consistent with volume overload at this time. Therefore the patient feel has pneumonia. Patient did require oxygen in the emergency room with ambulation therefore cannot be discharged home. Will continue to monitor PLAN: Plan Chronic conditions End-stage renal disease: On hemodialysis every Thursday, and Thursday. If the patient requires being hospitalized through Thursday, will consult nephrology to continue with the dialysis. No need for urgent dialysis at this time. Diabetes mellitus type 2: Continue with prandial as well as basal insulin. Add sliding scale insulin. Glaucoma: Continue latanoprost Obesity class III: Complicates care and recovery. VTE prophylaxis with subcu heparin CODE STATUS: Addressed with the patient. Patient wishes to be full code Charges/Coding Visit Charges Inpatient E&M: 77772 Init Hosp L3
[2024-10-09] MEDS: Ceftriaxone 2 GM in 0.9% Normal Saline (50mL MB+) 50 ML IV (13:30)
--- NOTE | 2024-10-09 13:39 | NURSING ---
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 Baldwin and no orders for these labs at this time.
--- OUTSIDE RECORDS SUMMARY | 2024-10-09 14:02 | XMS RPT_ITS | CCD ---
Author Organization [facility] Care Team Providers Care Early Childhood Name Role Phone JON WORTHINGTON Referring Unavailable JON WORTHINGTON Referring Unavailable LESLEY BLANDON-NILES, DENISSE Primary Care Physician Maria Luisa Bridges Unavailable Unavailable Maria E PT, Kelli Unavailable Unavailable LESLEY BLANDON-DENISSE CAGE Primary Care Physician Macarena Smith Unavailable Unavailable Unavailable Lesley IRONING WORKER, IRONING WORKER-C Denisse Primary Care Provider Dr. Samm Talley Emergency Provider Dr. Patsy Wyman Admit Provider Dr. Patsy Wyman Attending Provider Dr. Patsy Wyman Other Provider Dr. Sanaz Gomez Other Provider Dr. Mahamed Dunn Attending Provider Dr. Mahamed Dunn Other Provider Dr. Patsy Montenegro Emergency Provider Dr. Jalen Romano Attending Provider [phone] Lesley IRONING WORKER, IRONING WORKER-C Denisse Primary Care Provider Lesley IRONING WORKER, IRONING WORKER-C Denisse Referring Provider [phone] Dr. Cipriano Trujillo Attending Provider [phone] Cipriano Trujillo Referring Provider [phone] Cipriano Trujillo Other Provider Lorson IRONING WORKER, IRONING WORKER-C Zavalla Primary Care Provider [phone] Dr. Cipriano Trujillo Attending Provider [phone] Cipriano Trujillo Referring Provider [phone] Cipriano Trujillo Other Provider Lorson IRONING WORKER, IRONING WORKER-C Zavalla Referring Provider [phone] MARLY Quinonez Attending Provider [phone] Tarison IRONING WORKER, IRONING WORKER-C Zavalla Primary Care Provider [phone] Lorson IRONING WORKER, IRONING WORKER-C Zavalla Referring Provider [phone] Dr. Cipriano Trujillo Attending Provider [phone] Cipriano Trujillo Referring Provider [phone] Cipriano Trujillo Other Provider MARLY Quinonez Attending Provider [phone] Lorson STITCHER HAND, Zavalla Unavailable Lorson STITCHER HAND, Zavalla Primary Care Provider TIMOTHY REYES, JEREMY PEREZ Admitting Unava ilable TIMOTHY REYES, JEREMY PEREZ Attending Unava ilable MACARENA SMITH [facility] Care Unavailable LORSON FURNACE ROASTER-STITCHER HAND, BLAIR Attending Unavail able LORSON FURNACE ROASTER-STITCHER HAND, [facility] Unavail able EVELINA CURTIS MD Attending Unavail able LORSON FURNACE ROASTER-STITCHER HAND, [facility] Care Unavail able DR FREDDIE BURRIS DO Attending Unavailable LORSON FURNACE ROASTER-STITCHER HAND, [facility] Care Unavail able LORSON FURNACE ROASTER-STITCHER HAND, DENISSE Attending Unavail able LORSON FURNACE ROASTER-STITCHER HAND, [facility] Care Unavail able LORSON FURNACE ROASTER-STITCHER HAND, [facility] Care Unavail able LORSON FURNACE ROASTER-STITCHER HAND, BLAIR Attending Unavail able LORSON FURNACE ROASTER-STITCHER HAND, BLAIR Attending Unavail able LORSON FURNACE ROASTER-STITCHER HAND, [facility] Unavail able LORSON FURNACE ROASTER-STITCHER HAND, [facility] Care Unavail able LEE CASH MD Attending Unavailpineda CROW MD, DR SULLIVAN Attending Unavailable LORSON FURNACE ROASTER-STITCHER HAND, [facility] Care Unavail able DR NATE CROW MD Attending Unavailable LORSON FURNACE ROASTER-STITCHER HAND, BLAIR Primary Care Unavail able LORSON FURNACE ROASTER-STITCHER HAND, BLAIR Primary Care Unavail able LORSON FURNACE ROASTER-STITCHER HAND, BLAIR Attending Unavail able LORSON FURNACE ROASTER-STITCHER HAND, BLAIR Attending Unavail able LORSON FURNACE ROASTER-STITCHER HAND, [facility] Care Unavail able Bárbara, Jayaprakas Consulting Unavailable [facility], Mahamed Admitting Unavailable [facility], Mahamed Attending Unavailable Lorson IRONING WORKER, [facility] Care Unavailable [facility], Mahamed Consulting Unavailable Lorson IRONING WORKER, [facility] Care Unavailable White, Georgina L Admitting Unavailable White, Georgina L Attending Unavailable White, Georgina L Consulting Unavailable Koram, Eboni Yumiko Attending Unavailable Bárbara, Jayaprakas Consulting Unavailable Koram, Eboni Yumiko Consulting Unavailable Sondra Dumont Attending Unavailable Sondra Dumont Consulting Unavailable Fabian Perez Consulting Unavailable [facility], Mahamed Referring Unavailable Bobby Irizarry Attending Unavailable [...] Consulting Unavailable Fredrick Colbert Consulting Unavailable Caty IRONING WORKERFidelina Consulting Unavailable Tarison IRONING WORKER, [facility] Unavailable Michelet Harper Attending Unavailable Lorson IRONING WORKER, [facility] Care Unavailable Samm Talley Attending Unavailable White, Georgina L Admitting Unavailable White, Georgina L Consulting Unavailable Lorson IRONING WORKER, [facility] Unavailable Sondra Dumont Attending Unavailable Bárbara, Jayaprakas Consulting Unavailable Koram, Eboni Yumiko Consulting Unavailable [facility], Mahamed Admitting Unavailable [facility], Mahamed Attending Unavailable Lorson IRONING WORKER, [facility] Unavailable Bárbara, Jayaprakas Consulting Unavailable Lorson IRONING WORKER, [facility] Unavailable Georgina Gill L Attending Unavailable Fabian Perez Consulting Unavailable [facility], Mahamed Referring Unavailable [facility], Mahamed Admitting Unavailable Stevens, Tapan Consulting Unavailable [...] Unavailable Shaun, Mahamed Consulting Unavailable Lesley DUGGAN, Zavalla Primary Care Unavailable Mahamed Dunn Attending Unavailable [...] SUTTON Attending Unavailable DENISSE SUTTON Attending Unavailable [facility] Care Unavailable LESLEY DENISSE Primary Care Unavailable DENISSE SUTTON Attending Unavailable LESLEY DENISSE Primary Care Unavailable DR REENA LAMAS DO Attending Unavailpineda SUTTON DENISSE [facility] Unavailable TORRI MCCLAIN DO [...] qDay, # 100 cap(s), 3 Refill(s), Pharmacy: [facility], 160, cm, 08/09/20 9:31:00 EDT, [...] qDay, # 90 tab(s), 3 Refill(s), [place] [id number], 160.5, cm, 04/13/24 15:35:00 EST, Height, kg, [...] qDay, # 90 tab(s), 3 Refill(s), Pharmacy: [place] [address], 158, cm, 02/10/24 8:25:00 EST, Height, kg, 02/10/24 8:24:00 EST, Dosing Weight Start Date: 03/28/24 Status: Ordered Quantity: 90.0 Unit: tab(s) Repeat number: 4 Start: 04-27-2023 amLODIPine 10 mg oral tablet Dose : 10 mg = 1 tab(s), Oral, qDay, # 90 tab(s), 3 Refill(s), Pharmacy: [place] [address], 62, cm, 03/10/23 16:45:00 EST, Height, kg, 03/10/23 16:37:00 EST, Dosing Weight Start Date: 04/27/23 Status: Ordered Start: 11-14-2020 amLODIPine Bes ylate 10 MG Oral Tablet Quantity: 30 Refills: 0 Ordered: 09-Dec-2020 DO Start : 14-Nov-2020 Active Start: 11-28-2019 End: 01-20-2021 amLODIPine 10 mg oral tablet Dose : 10 mg = 1 tab(s), Oral, qDay, # 90 tab(s), 3 Refill(s), Pharmacy: [place] [address], 62, cm, 03/10/23 16:45:00 EST, Height, kg, [...] qDay, # 90 tab(s), 3 Refill(s), Pharmacy: [place] [address], 155, cm, 05/03/24 15:44:00 EST, Height, kg, 05/03/24 15:44:00 EST, Dosing Weight Start Date: 05/16/24 Stop Date: 05/11/25 Status: Ordered Quantity: 90.0 Unit: tab(s) Repeat number: 4 Start: 05-18-2018 End: 05-20-2018 take 40 mg by mouth at bedtime Atorvastatin Discontinu ed 40 MG PO AT BEDTIME May 20, 2018 1:00am May 20, 2018 10:40pm B Complex With C 20-Folic Acid (Hernshaw Caps) 1 mg capsule (4 sources) Start: 01-13-2023 take 1 capsule by mouth once daily B Complex With C 20-Folic Acid (Hernshaw Caps) 1 mg capsule Active 1 CAP PO DAILY January 12, 2023 11:00pm Start: 01-13-2023 take 1 capsule by mo uth once daily B Complex With C 20-Folic Acid (Hernshaw Caps) 1 mg capsule Active 1 CAP [...] 4times/day, # 1 EA, 0 Refill(s), Pharmacy: [place] [id number], 159, cm, 01/21/22 15:18:00 EDT, Height, 97.1, [...] preference, # 1 EA, 0 Refill(s), Pharmacy: [id number] Start Date: 02/16/19 Status: Ordered Blood Pressure Cuff (9 sources) Start: 05-12-2023 Blood Pressure Cuff See Instructions, Check and Log Blood Pressure Daily, # 1 EA, 0 Refill(s), Pharmacy: [facility] [address], (HFpEF) heart failure with preserved ejection fraction Systolic murmur, 155, cm, 05/12/23 16:07:00 EST, Height, 102.2, kg, 05/12/23 16:07:00 EST, Dosing Weight Start Date: 05/12/23 Status: Ordered Quantity: 1.0 Unit: EA Repeat number: 1 Indications: Cardiac murmur, unspecified; Unspecified diastolic (congestive) heart failure; Start: 05-12-2023 Blood Pressure Cuff See Instructions, Check and Log Blood Pressure Daily, # 1 EA, 0 Refill(s), Pharmacy: [place] [address], (HFpEF) heart failure with preserved ejection fraction [...] BID, # 180 tab(s), 3 Refill(s), Pharmacy: [place] [address], 155, cm, 10/27/23 15:18:00 EDT, Height, kg, 10/27/23 15:18:00 EDT, Dosing Weight Start Date: 11/05/23 Status: Ordered Quantity: 180.0 Unit: tab(s) Repeat number: 4 Start: 12-16-2022 Coreg 12.5 mg oral tablet Dose : 12.5 mg = 1 tab(s), Oral, BID, # 180 tab(s), 3 Refill(s), Pharmacy: [place] [address], 154.9, cm, 11/18/22 8:18:00 EDT, Height, kg, 11/18/22 8:18:00 EDT, Dosing Weight Start Date: 12/16/22 Status: Ordered Start: 09-03-2022 Coreg 12.5 mg oral tablet Dose : 12.5 mg = 1 tab(s), Oral, BID, # 60 tab(s), 3 Refill(s), Pharmacy: [place] [address], 155, cm, 09/03/22 10:30:00 EDT, Height Start Date: 09/03/22 Status: Ordered Start: 07-31-2021 End: 01-08-2023 Coreg 6.25 mg oral tablet Do se : 6.25 mg = 1 tab(s), Oral, BID, # 60 tab(s), 11 Refill(s), Pharmacy: [place] [address], 160, cm, 12/13/21 17:24:00 EDT, Height, kg, [...] BID, # 60 tab(s), 11 Refill(s), Pharmacy: [facility] 39, 160, cm, 02/14/20 9:21:00 EST, [...] 0 Refill(s), 08/23/24 2:39:00 PM EDT, Pharmacy: [facility] [id number], 155, cm, 08/16/24 11:12:00 EDT, Height, 111, [...] sugar., # 1 EA, 0 Refill(s), Pharmacy: [place] [id number], 155, cm, 05/03/24 15:44:00 EST, Height, 107.4, kg, 05/03/24 15:44:00 EST, Dosing Weight Start Date: 05/23/24 Status: Ordered Quantity: 1.0 Unit: EA Repeat number: 1 Start: 03-14-2024 DME MISCellane ous See Instructions, Freestyle Glucometer. Use to check blood sugars 4 times daily with insulin administrations, # 1 EA, 0 Refill(s), Pharmacy: [facility] [address], 158, cm, 02/10/24 8:25:00 EST, Height, 104.5, kg, 02/10/24 8:24:00 EST, Dosing Weight Start Date: 03/14/24 Status: Ordered Quantity: 1.0 Unit: EA Repeat number: 1 Start: 09-29-2023 DME MISCellane ous See Instructions, One Touch Verio Glucometer. Use daily to monitor blood sugars, # 1 EA, 0 Refill(s), Pharmacy: [facility] [address], 159, cm, 06/03/23 13:51:00 EST, Height, 14.54, kg, 06/08/23 16:20:00 EDT, Dosing Weight Start Date: 09/29/23 Status: Ordered Quantity: 1.0 Unit: EA Repeat number: 1 Start: 09-29-2023 DME MISCellane ous See Instructions, One Touch Verio Glucometer. Use daily to monitor blood sugars, # 1 EA, 0 Refill(s), Pharmacy: [facility] [address], 159, cm, 06/03/23 13:51:00 EST, Height, 14.54, [...] qDay, # 30 tab(s), 11 Refill(s), Pharmacy: [place] [address], 160, cm, 12/13/21 17:24:00 EDT, Height, kg, 12/14/21 15:31:00 EDT, Dosing Weight Start Date: 01/13/22 Stop Date: 01/08/23 Status: Ordered Start: 07-31-2021 Lexapro 10 mg oral tablet Dose : 10 mg = 1 tab(s), Oral, qDay, # 30 tab(s), 5 Refill(s), Pharmacy: [facility] 39, 161.3, cm, 07/31/21 7:54:00 EDT, Height Start Date: 07/31/21 Status: Ordered Start: 10-11-2020 End: 10-06-2021 Lexapro 5 mg oral tablet Dos e : 5 mg = 1 tab(s), Oral, qDay, # 30 tab(s), 11 Refill(s), Pharmacy: [facility] 39, 168, cm, 10/11/20 14:11:00 EDT, [...] qDay, # 90 tab(s), 3 Refill(s), Pharmacy: [place] [address], 155, cm, 10/27/23 15:18:00 EDT, Height, kg, 10/27/23 15:18:00 EDT, Dosing Weight Start Date: 11/05/23 Status: Ordered Quantity: 90.0 Unit: tab(s) Repeat number: 4 Start: 01-05-2023 Zetia 10 mg or al tablet Dose : 10 mg = 1 tab(s), Oral, qDay, # 90 tab(s), 3 Refill(s), Pharmacy: [place] [address], 157.5, cm, 12/30/22 14:30:00 EDT, Height, kg, 12/30/22 14:30:00 EDT, Dosing Weight Start Date: 01/05/23 Status: Ordered Start: 07-12-2022 End: 12-10-2022 Ezetimibe Discontinued 10 MG DAILY July 12, 2022 12:00am December 10, 2022 3:31pm Start: 02-12-2022 Zetia 10 mg or al tablet Dose : 10 mg = 1 tab(s), Oral, qDay, # 90 tab(s), 3 Refill(s), Pharmacy: [place] [address], 155, cm, 02/12/22 16:25:00 EST, Height Start [...] bid, # 60 cap(s), 5 Refill(s), Pharmacy: [place] [address], Leg pain, 155, cm, 05/03/24 15:44:00 EST, [...] BID, # 60 cap(s), 5 Refill(s), Pharmacy: [place] [address], Leg pain, 159, cm, 06/03/23 13:51:00 EST, Height, 14.54, kg, 06/08/23 16:20:00 EDT, Dosing Weight Start Date: 06/22/23 Stop Date: 12/19/23 Status: Ordered Start: 03-19-2021 End: 09-15-2021 gabapentin 100 mg oral capsu le Dose : 100 mg = 1 cap(s), Oral, TID, # 90 cap(s), 5 Refill(s), Pharmacy: [place] [id number], Leg pain, 160, cm, 03/19/21 13:15:00 EST, Height, 104.4, kg, 03/19/21 13:15:00 EST, Dosing Weight Start Date: 03/19/21 Stop Date: 09/15/21 Status: Ordered Start: 11-14-2020 End: 12-14-2020 gabapentin 100 mg oral capsu le Dose : 100 mg = 1 cap(s), Oral, TID, # 90 cap(s), 0 Refill(s), Pharmacy: [place] [id number], Leg pain, 168, cm, 10/11/20 14:11:00 EDT, [...] tab(s), 0 Refill(s), 04/22/22 14:19:00 EST, Pharmacy: [place] [id number], 160, cm, 04/15/22 13:44:00 EST, Height Start [...] TID, # 270 tab(s), 3 Refill(s), Pharmacy: [place] [address], 158, cm, 02/10/24 8:25:00 EST, Height, kg, 02/10/24 8:24:00 EST, Dosing Weight Start Date: 03/28/24 Status: Ordered Quantity: 270.0 Unit: tab(s) Repeat number: 4 Start: 04-27-2023 hydrALAZINE 10 0 mg oral tablet Dose : 100 mg = 1 tab(s), Oral, TID, # 270 tab(s), 3 Refill(s), Pharmacy: [place] [address], 62, cm, 03/10/23 16:45:00 EST, Height, kg, [...] qDay, # 6 mL, 11 Refill(s), Pharmacy: [place] [address], 158.5, cm, 01/12/24 15:01:00 EDT, Height, kg, 01/12/24 15:01:00 EDT, Dosing Weight Start Date: 01/12/24 Status: Ordered Quantity: 6.0 Unit: mL Repeat number: 12 Start: 06-03-2023 inject 1 dose by sub cutaneous injection once daily Toujeo Max SoloStar 300 units/mL subcutaneous solution Dose : 20 unit(s) =, Subcutaneous, qDay, # 6 mL, 11 Refill(s), Pharmacy: [place] [address], 159, cm, 06/03/23 13:51:00 EST, Height, kg, 06/03/23 13:51:00 EST, Dosing Weight Start Date: 06/03/23 Status: Ordered Start: 04-16-2023 inject 1 dose by sub cutaneous injection once daily Toujeo Max SoloStar 300 units/mL subcutaneous solution Dose : 20 unit(s) =, Subcutaneous, qDay, sent in absence of PCP, # 6 mL, 0 Refill(s), Pharmacy: [place] [address], 62, cm, 03/10/23 16:45:00 EST, Height, kg, 03/10/23 16:37:00 EST, Dosing Weight Start Date: 04/16/23 Status: Ordered Start: 12-02-2022 End: 04-01-2023 inject 1 dose by subcutaneous injection once daily Toujeo Max SoloStar 300 units/mL subcutaneous solution Dose : 20 unit(s) =, Subcutaneous, qDay, # 3 mL, 3 Refill(s), Pharmacy: [place] [id number], 154.9, cm, 11/18/22 8:18:00 EDT, Height, kg, 11/18/22 8:18:00 EDT, Dosing Weight Start Date: 12/02/22 Stop Date: 04/01/23 Status: Ordered Start: 09-03-2022 End: 10-03-2022 inject 1 dose by subcutaneous injection once daily Toujeo Max SoloStar 300 units/mL subcutaneous solution Dose : 20 unit(s) =, Subcutaneous, qDay, sent in absence of PCP, # 3 mL, 0 Refill(s), Pharmacy: [place] [id number], 155, cm, 08/28/22 23:41:00 EDT, Height, kg, 08/28/22 23:41:00 EDT, Dosing Weight Start Date: 09/03/22 Stop Date: 10/03/22 Status: Ordered Start: 09-23-2021 End: 03-22-2022 inject 1 dose by subcutaneous injection once daily Toujeo Max SoloStar 300 units/mL subcutaneous solution Dose : 20 unit(s) =, Subcutaneous, qDay, # 3 mL, 1 Refill(s), Pharmacy: [place] [address], 155, cm, 11/04/21 14:50:00 EDT, Height, kg, [...] EA, 3 Refill(s), 3 mL PEN, Pharmacy: [facility] [address], 158.5, cm, 01/12/24 15:01:00 EDT, Height, kg, 01/12/24 15:01:00 EDT, Dosing Weight Start Date: 01/12/24 Status: Ordered Start: 12-09-2022 inject 1 dose by sub cutaneous injection at lunch HumaLOG KwikPen 100 units/mL injectable PEN Dose : 5 unit(s) =, Subcutaneous, with lunch, # 1 EA, 3 Refill(s), 3 mL PEN, [facility] [address], 154.9, cm, 11/18/22 8:18:00 EDT, Height, kg, 11/18/22 8:18:00 EDT, Dosing Weight Start Date: 12/09/22 Status: Ordered Start: 06-25-2022 HumaLOG KwikPe n 100 units/mL injectable PEN Dose : 5 unit(s) =, Subcutaneous, BIDAC, # 1 EA, 3 Refill(s), 3 mL PEN, [facility] [address], 160, cm, 05/28/22 14:54:00 EST, Height Start Date: 06/25/22 Status: Ordered Start: 12-25-2021 HumaLOG KwikPe n 100 units/mL injectable PEN Dose : 5 unit(s) =, Subcutaneous, BIDAC, rotate injection sites, # 9 mL, 3 Refill(s), Pharmacy: [facility] [address], 160, cm, 12/13/21 17:24:00 EDT, Height, kg, [...] KWIKPE N 100 unit/mL InPn lactobacillus acidophilus [id number] unt oral capsule (2 sources) Start: 08-09-2020 take 1 capsule by mouth once daily Acidophilus Probiotic Blend oral capsule Dose = 1 cap(s), Oral, qDay, # 100 cap(s), 3 Refill(s), Pharmacy: [facility] 39, 160, cm, 08/09/20 9:31:00 EDT, Height, kg, 08/09/20 9:31:00 EDT, Dosing Weight Start Date: 08/09/20 Status: Ordered melatonin 5 mg oral tablet (20 sources) Start: 09-02-2021 End: 05-05-2022 melatonin 10 mg oral tablet Dose : 10 mg = 1 tab(s), Oral, qHS, PRN as needed for insomnia, X 30 day(s), # 30 tab(s), 1 Refill(s), 05/05/22 17:37:00 EST, Pharmacy: [facility] [id number], 155, cm, 02/25/22 9:38:00 EST, Height, kg, [...] number: 1 Start: 01-25-2021 End: 07-12-2022 Nystatin ([facility]) 100,000 un it/gram Powder Discontinued 1 APPLIC [...] tab(s), 0 Refill(s), 12/16/21 13:18:00 EDT, Pharmacy: [place] [address], Nausea and vomiting in adult, 155, cm, [...] supply, # 1 EA, 11 Refill(s), Pharmacy: [facility] [address], 154.9, cm, 11/18/22 8:18:00 EDT, Height, 101, kg, 11/18/22 8:18:00 EDT, Dosing Weight Start Date: 12/21/22 Status: Ordered Quantity: 1.0 Unit: EA Repeat number: 12 Start: 12-21-2022 Pen needles 5 mm See Instructions, qs for 1 month supply, # 1 EA, 11 Refill(s), Pharmacy: [place] [address], 154.9, cm, 11/18/22 8:18:00 EDT, Height, 101, kg, 11/18/22 8:18:00 EDT, Dosing Weight Start Date: 12/21/22 Status: Ordered predniSONE 10 mg oral tablet (17 sources) Start: 01-20-2023 End: 01-26-2023 prednisone 10mg tab (TAPER) Taper 65-28-02-30-20-10 x 1 day, Oral, qAM, # 21 tab(s), 0 Refill(s), Pharmacy: [place] [address], Poison sekou, 157.5, cm, 01/20/23 14:38:00 EDT, [...] BID, # 180 tab(s), 0 Refill(s), Pharmacy: [place] [id number], 155, cm, 08/11/22 6:21:00 EDT, Height Start Date: 08/11/22 Status: Ordered Hernshaw Caps (4 sources) Start: 12-28-2023 take 1 capsule by mo ut once daily Alok Caps Dose = 1 cap(s), Oral, qDay, 0 Refill(s) Start Date: 12/28/23 Status: Ordered Repeat number: 1 Start: 12-28-2023 take 1 capsule by mo uth once daily Hernshaw Caps Dose = 1 cap(s), Oral, qDay, 0 Refill(s) Start Date: 12/28/23 Status: Ordered torsemide 100 mg oral tablet (20 sources) Loop Diuretic Start: 08-16-2024 torsemide 100 mg oral tablet Dose : 50 mg = 0.5 tab(s), Oral, BID, # 30 tab(s), 5 Refill(s), Pharmacy: [facility] [address], 155, cm, 08/16/24 11:12:00 EDT, Height, kg, [...] day(s), # 30 gram(s), 0 Refill(s), Pharmacy: [facility] - [id number], Cream, 155, cm, 08/16/24 11:12:00 EDT, Height, [...] qDay, # 30 cap(s), 3 Refill(s), Pharmacy: [facility] [address], 158, cm, 12/21/23 12:59:00 EDT, Height, kg, 12/21/23 12:59:00 EDT, Dosing Weight Start Date: 12/30/23 Status: Ordered Start: 09-07-2023 venlafaxine 75 mg oral capsule, extended release Dose : 75 mg = 1 cap(s), Oral, qDay, # 30 cap(s), 3 Refill(s), Pharmacy: [facility] [address], 159, cm, 06/03/23 13:51:00 EST, Height, kg, 06/08/23 16:20:00 EDT, Dosing Weight Start Date: 09/07/23 Status: Ordered Start: 06-03-2023 venlafaxine 75 mg oral capsule, extended release Dose : 75 mg = 1 cap(s), Oral, qDay, # 30 cap(s), 3 Refill(s), Pharmacy: [facility] [place] - [id number], 159, cm, 06/03/23 13:51:00 EST, Height, kg, 06/03/23 13:51:00 EST, Dosing Weight Start Date: 06/03/23 Status: Ordered Start: 04-29-2023 venlafaxine 37 .5 mg oral capsule, extended release Dose : 37.5 mg = 1 cap(s), Oral, qDay, # 30 cap(s), 1 Refill(s), Pharmacy: [place] [address], 157.5, cm, 04/29/23 14:30:00 EST, Height, kg, [...] Daily, # 30 cap(s), 11 Refill(s), Pharmacy: [place] [address], 155, cm, 10/27/23 15:18:00 EDT, Height, kg, 10/27/23 15:18:00 EDT, Dosing Weight Start Date: 12/02/23 Status: Ordered Quantity: 30.0 Unit: cap(s) Repeat number: 12 Start: 12-02-2023 Vitamin D3 50 mcg (2000 intl units) oral capsule Dose : 50 mcg = 1 tab(s), Oral, Daily, # 30 cap(s), 11 Refill(s), Pharmacy: [place] [address], 155, cm, 10/27/23 15:18:00 EDT, Height, kg, 10/27/23 15:18:00 EDT, Dosing Weight Start Date: 12/02/23 Status: Ordered Start: 01-05-2023 Vitamin D3 50 mcg (2000 intl units) oral capsule Dose : 50 mcg = 1 tab(s), Oral, Daily, # 30 cap(s), 11 Refill(s), Pharmacy: [place] [address], 157.5, cm, 12/30/22 14:30:00 EDT, Height, kg, 12/30/22 14:30:00 EDT, Dosing Weight Start Date: 01/05/23 Status: Ordered Start: 01-21-2022 Vitamin D3 50 mcg (2000 intl units) oral capsule Dose : 50 mcg = 1 tab(s), Oral, Daily, # 30 cap(s), 11 Refill(s), Pharmacy: [place] [address], 159, cm, 01/21/22 15:18:00 EDT, Height, kg, [...] extended release oral tablet (8 sources) Uncompetitive G-ztkkop-G-aspartate Receptor Antagonist, Sigma-1 Agonist Start: 01-13-2018 End: [...] Problem Lis henry Migration; 2012-06-28; Moved to [facility] Feb 23 2013 9:11PM; Acquired foot [...] 5 Episodic Other aftercare (1 source) Other intermodal customer service (current) drug therapy; Translations: [Other senior care (current) drug therapy] Onset: 5 Episodic Other [...] 08/17/2024 9:57:05 AM Ordering Provider: DENISSE Self [facility] .Auto Diffon 08-16-2024 Basophil, Absolute 0.0 10 3/mcL Normal 0.0-0.3 [facility] Comment on above: Performed By: #### C MP, ANEU, ADIFF, AMM, GFR, PBNP, CBC #### [address] [address] Basophils/100 WBC (Bld) 0.3 % Normal 0.0-2.5 [facility] Comment on above: Performed By: #### C MP, ANEU, ADIFF, AMM, GFR, PBNP, CBC #### [address] [address] Eosinophil, Absolute 0.2 10 3/mcL Normal 0.0-0.7 [facility] Comment on above: Performed By: #### C MP, ANEU, ADIFF, AMM, GFR, PBNP, CBC #### [address] [address] Eosinophils/100 WBC (Bld) 2.0 % Normal 0.0-6.0 [facility] Comment on above: Performed By: #### C MP, ANEU, ADIFF, AMM, GFR, PBNP, CBC #### [address] [address] Lymphocyte, Absolute 0.6 10 3/mcL Low 0.9-4.3 [facility] Comment on above: Performed By: #### C MP, ANEU, ADIFF, AMM, GFR, PBNP, CBC #### [address] [address] Lymphocytes/100 WBC (Bld) 6.0 % Low 20.0-40.0 [facility] Comment on above: Performed By: #### C MP, ANEU, ADIFF, AMM, GFR, PBNP, CBC #### [address] [address] Monocyte, Absolute 0.8 10 3/mcL Normal 0.1-1.4 [facility] Comment on above: Performed By: #### C MP, ANEU, ADIFF, AMM, GFR, PBNP, CBC #### [address] [address] Monocytes/100 WBC (Bld) 8.8 % Normal 2.0-13.0 [facility] Comment on above: Performed By: #### C MP, ANEU, ADIFF, AMM, GFR, PBNP, CBC #### [address] [address] Neutrophils/100 WBC (Bld) 82.9 % High 50.0-75.0 [facility] Comment on above: Performed By: #### C MP, ANEU, ADIFF, AMM, GFR, PBNP, CBC #### [address] [address] .GFRon 08-16-2024 Estimated Glomerular Filtration Rate 12 ml/min/1.73sqm Normal [facility] Comment on above: Result Comment: Stages [...] ANEU, ADIFF, AMM, GFR, PBNP, CBC #### [address] [address] .NEUABSon 08-16-2024 Neutrophil, Absolute 7.9 10 3/mcL Normal 2.3-8.1 [facility] Comment on above: Performed By: #### C MP, ANEU, ADIFF, AMM, GFR, PBNP, CBC #### [address] [address] Randi 08-16-2024 Ammonia (P) [Moles/Vol] 14 umol/L Normal 11-32 [facility] Comment on above: Performed By: #### C MP, ANEU, ADIFF, AMM, GFR, PBNP, CBC #### [place] [address] CBCon 08-16-2024 Erythrocyte distribution width (RBC) [Ratio] 17.6 % High 11.5-15.5 [facility] Comment on above: Performed By: #### C MP, ANEU, ADIFF, AMM, GFR, PBNP, CBC #### [place] [address] Hematocrit (Bld) [Volume fraction] 31.6 % Low 34.0-46.0 [facility] Comment on above: Performed By: #### C MP, ANEU, ADIFF, AMM, GFR, PBNP, CBC #### [place] [address] Hgb 10.7 G/dL Low 12.0-16.0 [facility] Comment on above: Performed By: #### C MP, ANEU, ADIFF, AMM, GFR, PBNP, CBC #### [place] [address] MCH (RBC) [Entitic mass] 33.2 pg High 27.0-33.0 [facility] Comment on above: Performed By: #### C MP, ANEU, ADIFF, AMM, GFR, PBNP, CBC #### [place] [address] MCHC 33.8 G/dL Normal 32.0-36.0 [facility] Comment on above: Performed By: #### C MP, ANEU, ADIFF, AMM, GFR, PBNP, CBC #### [address] [address] MCV (RBC) [Entitic vol] 98.0 fL Normal 80.0-99.0 [facility] Comment on above: Performed By: #### C MP, ANEU, ADIFF, AMM, GFR, PBNP, CBC #### [address] [address] Platelet 161 10 3/mcL Normal 150-450 [facility] Comment on above: Performed By: #### C MP, ANEU, ADIFF, AMM, GFR, PBNP, CBC #### [address] [address] Platelet mean volume (Bld) [Entitic vol] 10.3 fL Normal 6.6-10.5 [facility] Comment on above: Performed By: #### C MP, ANEU, ADIFF, AMM, GFR, PBNP, CBC #### [address] [address] RBC 3.23 10 6/mcL Low 4.10-5.30 [facility] Comment on above: Performed By: #### C MP, ANEU, ADIFF, AMM, GFR, PBNP, CBC #### [address] [address] WBC 9.5 10 3/mcL Normal 4.5-10.8 [facility] Comment on above: Performed By: #### C MP, ANEU, ADIFF, AMM, GFR, PBNP, CBC #### [address] [address] CMPon 08-16-2024 Albumin Level 3.3 G/dL Low 3.5-5.0 [facility] Comment on above: Performed By: #### C MP, ANEU, ADIFF, AMM, GFR, PBNP, CBC #### [address] [address] Albumin/Globulin [Mass ratio] 0.9 {ratio} Low 1.1-2.5 [facility] Comment on above: Performed By: #### C MP, ANEU, ADIFF, AMM, GFR, PBNP, CBC #### [address] [address] ALP [Catalytic activity/Vol] 88 U/L Normal 40-135 [facility] Comment on above: Performed By: #### C MP, ANEU, ADIFF, AMM, GFR, PBNP, CBC #### [address] [address] ALT [Catalytic activity/Vol] 33 U/L Normal 14-59 [facility] Comment on above: Performed By: #### C MP, ANEU, ADIFF, AMM, GFR, PBNP, CBC #### [place] [address] AST [Catalytic activity/Vol] 25 U/L Normal 10-40 [facility] Comment on above: Performed By: #### C MP, ANEU, ADIFF, AMM, GFR, PBNP, CBC #### [address] [address] Bili Total 1.0 mg/dL Normal 0.2-1.0 [facility] Comment on above: Result Comment: Use of this assay is not recommended for patients undergoing treatment with eltrombopag due to the potential for falsely elevated results. Performed By: #### C MP, ANEU, ADIFF, AMM, GFR, PBNP, CBC #### [address] [address] BUN/Creatinine Ratio 7 ratio Normal 7-27 [facility] Comment on above: Performed By: #### C MP, ANEU, ADIFF, AMM, GFR, PBNP, CBC #### [address] [address] Calcium [Mass/Vol] 9.0 mg/dL Normal 8.4-10.2 [facility] Comment on above: Performed By: #### C MP, ANEU, ADIFF, AMM, GFR, PBNP, CBC #### [address] [address] Chloride [Moles/Vol] 98 mmol/L Normal 98-107 [facility] Comment on above: Performed By: #### C MP, ANEU, ADIFF, AMM, GFR, PBNP, CBC #### [address] [address] CO2 [Moles/Vol] 35 mmol/L High 22-29 [facility] Comment on above: Performed By: #### C MP, ANEU, ADIFF, AMM, GFR, PBNP, CBC #### [address] [address] Creatinine [Mass/Vol] 3.97 mg/dL High 0.51-0.95 [facility] Comment on above: Performed By: #### C MP, ANEU, ADIFF, AMM, GFR, PBNP, CBC #### [place] [address] Electrolyte Balance 2.0 mEq/L Low 4.0-15.0 [facility] Comment on above: Performed By: #### C MP, ANEU, ADIFF, AMM, GFR, PBNP, CBC #### [place] [address] Globulin 3.7 G/dL Normal 2.7-4.4 [facility] Comment on above: Performed By: #### C MP, ANEU, ADIFF, AMM, GFR, PBNP, CBC #### [place] [address] Glucose [Mass/Vol] 137 mg/dL High 70-105 [facility] Comment on above: Performed By: #### C MP, ANEU, ADIFF, AMM, GFR, PBNP, CBC #### [place] [address] Potassium [Moles/Vol] 4.9 mmol/L Normal 3.5-5.1 [facility] Comment on above: Performed By: #### C MP, ANEU, ADIFF, AMM, GFR, PBNP, CBC #### [place] [id number] [place], [place] [address] Sodium [Moles/Vol] 135 mmol/L Low 136-145 [facility] Comment on above: Performed By: #### C MP, ANEU, ADIFF, AMM, GFR, PBNP, CBC #### [place] [address] [place], [place] [address] Total Protein 7.0 G/dL Normal 6.4-8.2 [facility] Comment on above: Performed By: #### C MP, ANEU, ADIFF, AMM, GFR, PBNP, CBC #### [place] [address] [place], [place] [address] Urea nitrogen [Mass/Vol] 28 mg/dL High 7-18 [facility] Comment on above: Performed By: #### C MP, ANEU, ADIFF, AMM, GFR, PBNP, CBC #### [address] [address] LABORATORYOrdered By: SYSTEM SYSTEM on 08-16-2024 Albumin [...] B (Bld) [Mass/Vol] 9376 pg/mL High 0-125 [facility] Comment on above: Result Comment: NT-p roBNP results of less than 300 pg/mL effectively rules out acute congestive heart failure with 99% negative predictive value. Performed By: #### C MP, ANEU, ADIFF, AMM, GFR, PBNP, CBC #### [facility] [address] [place], [place] [address] Respiratory Cultureon 2024 RESPC Normal [facility] Comment on above: Performed By: #### M 100.2400, M100.2000 ####[facility] [address] [place], [address] Bedside Glucoseon 08-02-2024 FINGERSTICK GLU 94 mg/dL Normal 74-106 [facility] Comment on above: Result Comment: GALA GEMENT OF PATIENT CARE PER NURSING PROTOCOL Performed By: #### L 501.080 ####[facility] [address] [place], [address] FINGERSTICK GLU 129 mg/dL High 74-106 [facility] Comment on above: Result Comment: GALA GEMENT OF PATIENT CARE PER NURSING PROTOCOL Performed By: #### L 501.080 ####[facility] [address] [place], [address] FINGERSTICK GLU 133 mg/dL High 74-106 [facility] Comment on above: Result Comment: GALA GEMENT OF PATIENT CARE PER NURSING PROTOCOL Performed By: #### L 501.080 ####[facility] [address] [place], [address] CBC W/Diff, Automatedon 05- Absolute Lymph 0.73 X10 3/uL Low 0.83-4.51 [facility] Comment on above: Performed By: #### L 100.0100 ####[facility] [address] [place], [address] Absolute Neut 5.3 X10 3/uL Normal 2.0-7.7 [facility] Comment on above: Performed By: #### L 100.0100 ####[facility] [address] [place], [address] Basophils/100 WBC (Bld) 0.3 % Normal 0-1 [facility] Comment on above: Performed By: #### L 100.0100 ####[facility] [address] [place], [address] Eosinophils/100 WBC (Bld) 3.2 % Normal 0-5 [facility] Comment on above: Performed By: #### L 100.0100 ####[facility] [address] [place], [address] Erythrocyte distribution width (RBC) [Ratio] 15.7 % High 11.6-14.6 [facility] Comment on above: Performed By: #### L 100.0100 ####[facility] [address] [place], [address] Hematocrit (Bld) [Volume fraction] 27.0 % Low 37-47 [facility] Comment on above: Performed By: #### L 100.0100 ####[facility] [address] [place], [address] Hemoglobin (Bld) [Mass/Vol] 9.1 g/dL Low 12.0-15.0 [facility] Comment on above: Performed By: #### L 100.0100 ####[facility] [address] [place], [address] IG% 0.700 Normal 0.0-0.9 [facility] Comment on above: Result Comment: IG% - Immature Granulocytes (promyelocytes, myelocytes andmetamyelocytes) > 1% indicates that a LEFT SHIFT is Present. Performed By: #### L 100.0100 ####[facility] [address] [place], [address] Lymphocytes/100 WBC (Bld) 10.5 % Low 19-41 [facility] Comment on above: Performed By: #### L 100.0100 ####[facility] [address] [place], [address] MCH (RBC) [Entitic mass] 32.9 pg High 27.0-32.0 [facility] Comment on above: Performed By: #### L 100.0100 ####[facility] [address] [place], [address] MCHC (RBC) [Mass/Vol] 33.7 g/dL Normal 32-36 [facility] Comment on above: Performed By: #### L 100.0100 ####[facility] [address] [place], [address] MCV (RBC) [Entitic vol] 97.5 fL Normal 81-99 [facility] Comment on above: Performed By: #### L 100.0100 ####[facility] [address] [place], [address] Monocytes/100 WBC (Bld) 8.6 % Normal 0-10 [facility] Comment on above: Performed By: #### L 100.0100 ####[facility] [address] [place], [address] Neutrophils/100 WBC (Bld) 76.7 % High 47-70 [facility] Comment on above: Performed By: #### L 100.0100 ####[facility] [address] [place], [address] Nucleated RBC (Bld) [#/Vol] 0 10*3/uL Normal 0-5 [facility] Comment on above: Performed By: #### L 100.0100 ####[facility] [address] [place], [address] Platelet mean volume (Bld) [Entitic vol] 12.1 fL High 6.2-12.0 [facility] Comment on above: Performed By: #### L 100.0100 ####[facility] [address] [place], [address] Platelets (Bld) [#/Vol] 133 10*3/uL Low 150-450 [facility] Comment on above: Performed By: #### L 100.0100 ####[facility] [address] [place], [address] RBC (Bld) [#/Vol] 2.77 10*6/uL Low 4.2-5.4 [facility] Comment on above: Performed By: #### L 100.0100 ####[facility] [address] [place], [address] RDW SD 55.5 fl High 35.1-43.9 [facility] Comment on above: Performed By: #### L 100.0100 ####[facility] [address] [place], [address] WBC (Bld) [#/Vol] 7.0 10*3/uL Normal 4.4-11.0 [facility] Comment on above: Performed By: #### L 100.0100 ####[facility] [address] [place], [address] Bedside Glucoseon 08-01-2024 FINGERSTICK GLU 149 mg/dL High 74-106 [facility] Comment on above: Result Comment: GALA GEMENT OF PATIENT CARE PER NURSING PROTOCOL Performed By: #### L 501.080 ####[facility] [address] [place], [address] FINGERSTICK GLU 159 mg/dL High 74-106 [facility] Comment on above: Result Comment: GALA GEMENT OF PATIENT CARE PER NURSING PROTOCOL Performed By: #### L 501.080 ####[facility] [address] [place], [address] FINGERSTICK GLU 106 mg/dL Normal 74-106 [facility] Comment on above: Result Comment: GALA GEMENT OF PATIENT CARE PER NURSING PROTOCOL Performed By: #### L 501.080 ####[facility] [address] [place], [address] FINGERSTICK GLU 133 mg/dL High 74-106 [facility] Comment on above: Result Comment: GALA GEMENT OF PATIENT CARE PER NURSING PROTOCOL Performed By: #### L 501.080 ####[facility] [address] [place], [address] CBC W/Diff, Automatedon 05-0 5-2025 Absolute Lymph 0.61 X10 3/uL Low 0.83-4.51 [facility] Comment on above: Performed By: #### L 100.0100, L500.4050 ####[facility] [address] [place], [address] Absolute Neut 7.1 X10 3/uL Normal 2.0-7.7 [facility] Comment on above: Performed By: #### L 100.0100, L500.4050 ####[facility] [address] [place], [address] Basophils/100 WBC (Bld) 0.5 % Normal 0-1 [facility] Comment on above: Performed By: #### L 100.0100, L500.4050 ####[facility] [address] [place], [address] Eosinophils/100 WBC (Bld) 2.9 % Normal 0-5 [facility] Comment on above: Performed By: #### L 100.0100, L500.4050 ####[facility] [address] [place], [address] Erythrocyte distribution width (RBC) [Ratio] 16.0 % High 11.6-14.6 [facility] Comment on above: Performed By: #### L 100.0100, L500.4050 ####[facility] [address], [address] Hematocrit (Bld) [Volume fraction] 31.3 % Low 37-47 [facility] Comment on above: Performed By: #### L 100.0100, L500.4050 ####[facility] [address] [place], [address] Hemoglobin (Bld) [Mass/Vol] 10.2 g/dL Low 12.0-15.0 [facility] Comment on above: Performed By: #### L 100.0100, L500.4050 ####[facility] [address] [place], [address] IG% 0.500 Normal 0.0-0.9 [facility] Comment on above: Result Comment: IG% - Immature Granulocytes (promyelocytes, myelocytes andmetamyelocytes) > 1% indicates that a LEFT SHIFT is Present. Performed By: #### L 100.0100, L500.4050 ####[facility] [address], [address] Lymphocytes/100 WBC (Bld) 7.0 % Low 19-41 [facility] Comment on above: Performed By: #### L 100.0100, L500.4050 ####[facility] [address] [place], [address] MCH (RBC) [Entitic mass] 33.2 pg High 27.0-32.0 [facility] Comment on above: Performed By: #### L 100.0100, L500.4050 ####[facility] [address], [address] MCHC (RBC) [Mass/Vol] 32.6 g/dL Normal 32-36 [facility] Comment on above: Performed By: #### L 100.0100, L500.4050 ####[facility] [address] [place], [address] MCV (RBC) [Entitic vol] 102.0 fL High 81-99 [facility] Comment on above: Performed By: #### L 100.0100, L500.4050 ####[facility] [address] [place], [address] Monocytes/100 WBC (Bld) 8.2 % Normal 0-10 [facility] Comment on above: Performed By: #### L 100.0100, L500.4050 ####[facility] [address] [place], [address] Neutrophils/100 WBC (Bld) 80.9 % High 47-70 [facility] Comment on above: Performed By: #### L 100.0100, L500.4050 ####[facility] [address] [place], [address] Nucleated RBC (Bld) [#/Vol] 0 10*3/uL Normal 0-5 [facility] Comment on above: Performed By: #### L 100.0100, L500.4050 ####[facility] [address] [place], [address] Platelet mean volume (Bld) [Entitic vol] 12.9 fL High 6.2-12.0 [facility] Comment on above: Performed By: #### L 100.0100, L500.4050 ####[facility] [address] [place], [address] Platelets (Bld) [#/Vol] 144 10*3/uL Low 150-450 [facility] Comment on above: Performed By: #### L 100.0100, L500.4050 ####[facility] [address] [place], [address] RBC (Bld) [#/Vol] 3.07 10*6/uL Low 4.2-5.4 [facility] Comment on above: Performed By: #### L 100.0100, L500.4050 ####[facility] [address] [place], [address] RDW SD 59.0 fl High 35.1-43.9 [facility] Comment on above: Performed By: #### L 100.0100, L500.4050 ####[facility] [address] [place], [address] WBC (Bld) [#/Vol] 8.7 10*3/uL Normal 4.4-11.0 [facility] Comment on above: Performed By: #### L 100.0100, L500.4050 ####[facility] [address] [place], [address] CDIFF (PCR)on 08-01-2024 CDIFF Is the patient recei ving laxatives? N New/unexplained onset of 3 or more stools in past 24 hrs? Y Pending 027 027 NAP1-B1 Presumptive Negative *for epidemiolologic???use C. Diff PCR Negative- No toxigenic C. Diff Detected Normal [facility] Comment on above: Performed By: #### M 100.637, M100.6796 ####[facility] [address] [place], [address] Comprehensive Metabolic Prof ilon 08-01-2024 Albumin [Mass/Vol] 3.5 g/dL Normal 3.5-5.0 [facility] Comment on above: Performed By: #### L 100.0100, L500.4050 ####[facility] [address] [place], [address] Albumin/Globulin [Mass ratio] 1.2 {ratio} Normal 0.9-2.4 [facility] Comment on above: Performed By: #### L 100.0100, L500.4050 ####[facility] [address] [place], [address] ALK PHOS 67 U/L Normal 35-104 [facility] Comment on above: Performed By: #### L 100.0100, L500.4050 ####[facility] [address] [place], [address] ALT [Catalytic activity/Vol] 21 U/L Normal <=34 [facility] Comment on above: Performed By: #### L 100.0100, L500.4050 ####[facility] [address] [place], [address] AST [Catalytic activity/Vol] 31 U/L Normal <=31 [facility] Comment on above: Performed By: #### L 100.0100, L500.4050 ####[facility] [address] [place], [address] Bilirubin [Mass/Vol] 0.67 mg/dL Normal 0.00-1.30 [facility] Comment on above: Performed By: #### L 100.0100, L500.4050 ####[facility] [address] [place], [address] BUN/CRE 6.6 RATIO Low 10-20 [facility] Comment on above: Performed By: #### L 100.0100, L500.4050 ####[facility] [address] [place], [address] Calcium [Mass/Vol] 8.5 mg/dL Normal 7.6-11.0 [facility] Comment on above: Performed By: #### L 100.0100, L500.4050 ####[facility] [address] [place], [address] Chloride [Moles/Vol] 98 mmol/L Normal 98-108 [facility] Comment on above: Performed By: #### L 100.0100, L500.4050 ####[facility] [address], [address] CO2 [Moles/Vol] 24.8 mmol/L Normal 21.0-32.0 [facility] Comment on above: Performed By: #### L 100.0100, L500.4050 ####[facility] [address] [place], [address] Creatinine [Mass/Vol] 6.96 mg/dL High 0.70-1.20 [facility] Comment on above: Performed By: #### L 100.0100, L500.4050 ####[facility] [address] [place], [address] ECRCL 10.15 ml/min Low 50-250 [facility] Comment on above: Performed By: #### L 100.0100, L500.4050 ####[facility] [address] [place], [address] GAP 15 Normal 5-15 [facility] Comment on above: Performed By: #### L 100.0100, L500.4050 ####[facility] [address] [place], [address] GFR/1.73 sq M.predicted among non-blacks MDRD (S/P/Bld) [Vol rate/Area] 6 mL/min/{1.73_m2} Low >60 [facility] Comment on above: Result Comment: mL/m in/1.73m2 CKD-EPI Creatinine Equation (2020) Performed By: #### L 100.0100, L500.4050 ####[facility] [address] [place], [address] Globulin (S) [Mass/Vol] 2.8 g/dL Normal 2.2-4.2 [facility] Comment on above: Performed By: #### L 100.0100, L500.4050 ####[facility] [address] [place], [address] Glucose [Mass/Vol] 109 mg/dL High 70-99 [facility] Comment on above: Performed By: #### L 100.0100, L500.4050 ####[facility] [address] [place], [address] Potassium [Moles/Vol] 4.3 mmol/L Normal 3.3-5.1 [facility] Comment on above: Performed By: #### L 100.0100, L500.4050 ####[facility] [address] [place], [address] Sodium [Moles/Vol] 137 mmol/L Normal 133-145 [facility] Comment on above: Performed By: #### L 100.0100, L500.4050 ####[facility] [address] [place], [address] T PROT 6.3 g/dL Normal 5.9-8.4 [facility] Comment on above: Performed By: #### L 100.0100, L500.4050 ####[facility] [address] [place], [address] Urea nitrogen [Mass/Vol] 46 mg/dL High 4-19 [facility] Comment on above: Performed By: #### L 100.0100, L500.4050 ####[facility] [address] [place], [address] Consultation - Nephrologyon 08-01-2024 Consultation - Nephrology Normal [facility] ENTERIC PATHOGEN PANEL STOOL on 08-01-2024 EP PANEL Normal [facility] Comment on above: Performed By: #### M 100.637, M100.6796 ####[facility] [address] [place], [address] Gram Stainon 08-01-2024 GS Acceptable Specimen? Yes (<25 Epithelial cells per/lpf) Gram Stain 2+ Gram positive cocci 2+ Gram positive rods Normal [facility] Comment on above: Performed By: #### M 100.2400, M100.2000 ####[facility] [address] [place], [address] RESPIRATORY PANEL MOLECULARo n 08-01-2024 RP PANEL Normal [facility] Comment on above: Performed By: #### M 100.638 ####[facility] [address] [place], [address] .Auto Diffon 07-31-2024 Basophil, Absolute 0.0 10 3/mcL Normal 0.0-0.3 [facility] Comment on above: Performed By: #### B MP, CBC, ANEU, ADIFF, GFR, MDW, TROPHS ####[place] [address] [place], [place] [address] Basophils/100 WBC (Bld) 0.4 % Normal 0.0-2.5 [facility] Comment on above: Performed By: #### B MP, CBC, ANEU, ADIFF, GFR, MDW, TROPHS ####[place] [address] [place], [place] [address] Eosinophil, Absolute 0.4 10 3/mcL Normal 0.0-0.7 [facility] Comment on above: Performed By: #### B MP, CBC, ANEU, ADIFF, GFR, MDW, TROPHS ####[facility] [place], [place] [address] Eosinophils/100 WBC (Bld) 4.3 % Normal 0.0-6.0 [facility] Comment on above: Performed By: #### B MP, CBC, ANEU, ADIFF, GFR, MDW, TROPHS ####[facility] [place], [place] [address] Lymphocyte, Absolute 0.4 10 3/mcL Low 0.9-4.3 [facility] Comment on above: Performed By: #### B MP, CBC, ANEU, ADIFF, GFR, MDW, TROPHS ####[place] [address] [place], [place] [address] Lymphocytes/100 WBC (Bld) 4.7 % Low 20.0-40.0 [facility] Comment on above: Performed By: #### B MP, CBC, ANEU, ADIFF, GFR, MDW, TROPHS ####[facility] [place], [place] [address] Monocyte, Absolute 0.8 10 3/mcL Normal 0.1-1.4 [facility] Comment on above: Performed By: #### B MP, CBC, ANEU, ADIFF, GFR, MDW, TROPHS ####[place] [address] [place], [place] [address] Monocytes/100 WBC (Bld) 10.1 % Normal 2.0-13.0 [facility] Comment on above: Performed By: #### B MP, CBC, ANEU, ADIFF, GFR, MDW, TROPHS ####[facility] [place], [place] [address] Neutrophils/100 WBC (Bld) 80.5 % High 50.0-75.0 [facility] Comment on above: Performed By: #### B MP, CBC, ANEU, ADIFF, GFR, MDW, TROPHS ####[facility] [place], [place] [address] .GFRon 07-31-2024 Estimated Glomerular Filtration Rate 10 ml/min/1.73sqm Normal [facility] Comment on above: Result Comment: Stages [...] MP, CBC, ANEU, ADIFF, GFR, MDW, TROPHS ####[facility] [place], [place] [address] .MDWon 07-31-2024 Monocyte Distribution Width 23.91 High 0.00-20.00 [facility] Comment on above: Result Comment: For adults in ED, MDW>20.0 may be associated with a higher risk of sepsis during the first 12hrs of hospital admission Performed By: #### B MP, CBC, ANEU, ADIFF, GFR, MDW, TROPHS ####[place] [address] [place], [place] [address] .NEUABSon 07-31-2024 Neutrophil, Absolute 6.7 10 3/mcL Normal 2.3-8.1 [facility] Comment on above: Performed By: #### B MP, CBC, ANEU, ADIFF, GFR, MDW, TROPHS ####[facility] [place], [place] [address] BMPon 07-31-2024 BUN/Creatinine Ratio 7 ratio Normal 7-27 [facility] Comment on above: Performed By: #### B MP, CBC, ANEU, ADIFF, GFR, MDW, TROPHS ####[place] [address] [place], [place] [address] Calcium [Mass/Vol] 8.8 mg/dL Normal 8.4-10.2 [facility] Comment on above: Performed By: #### B MP, CBC, ANEU, ADIFF, GFR, MDW, TROPHS ####[place] [address] [place], [place] [address] Chloride [Moles/Vol] 101 mmol/L Normal 98-107 [facility] Comment on above: Performed By: #### B MP, CBC, ANEU, ADIFF, GFR, MDW, TROPHS ####[facility] [place], [place] [address] CO2 [Moles/Vol] 34 mmol/L High 22-29 [facility] Comment on above: Performed By: #### B MP, CBC, ANEU, ADIFF, GFR, MDW, TROPHS ####[place] [address] [place], [place] [address] Creatinine [Mass/Vol] 4.90 mg/dL High 0.51-0.95 [facility] Comment on above: Performed By: #### B MP, CBC, ANEU, ADIFF, GFR, MDW, TROPHS ####[place] [place], [place] [address] Electrolyte Balance 4.0 mEq/L Normal 4.0-15.0 [facility] Comment on above: Performed By: #### B MP, CBC, ANEU, ADIFF, GFR, MDW, TROPHS ####[place] [place], [place] [address] Glucose [Mass/Vol] 168 mg/dL High 70-105 [facility] Comment on above: Performed By: #### B MP, CBC, ANEU, ADIFF, GFR, MDW, TROPHS ####[place] [place], [place] [address] Potassium [Moles/Vol] 4.4 mmol/L Normal 3.5-5.1 [facility] Comment on above: Performed By: #### B MP, CBC, ANEU, ADIFF, GFR, MDW, TROPHS ####[place] [address] [place], [place] [address] Sodium [Moles/Vol] 139 mmol/L Normal 136-145 [facility] Comment on above: Performed By: #### B MP, CBC, ANEU, ADIFF, GFR, MDW, TROPHS ####[place] [place], [place] [address] Urea nitrogen [Mass/Vol] 34 mg/dL High 7-18 [facility] Comment on above: Performed By: #### B MP, CBC, ANEU, ADIFF, GFR, MDW, TROPHS ####[place] [address] [place], [place] [address] CBCon 07-31-2024 Erythrocyte distribution width (RBC) [Ratio] 17.1 % High 11.5-15.5 [facility] Comment on above: Performed By: #### B MP, CBC, ANEU, ADIFF, GFR, MDW, TROPHS ####[place] [address] [place], [place] [address] Hematocrit (Bld) [Volume fraction] 32.8 % Low 34.0-46.0 [facility] Comment on above: Performed By: #### B MP, CBC, ANEU, ADIFF, GFR, MDW, TROPHS ####[place] [address] [place], [place] [address] Hgb 11.2 G/dL Low 12.0-16.0 [facility] Comment on above: Performed By: #### B MP, CBC, ANEU, ADIFF, GFR, MDW, TROPHS ####[place] [address] [place] [id number] MCH (RBC) [Entitic mass] 33.5 pg High 27.0-33.0 [facility] Comment on above: Performed By: #### B MP, CBC, ANEU, ADIFF, GFR, MDW, TROPHS ####[place] [address] [place] [id number] MCHC 34.2 G/dL Normal 32.0-36.0 [facility] Comment on above: Performed By: #### B MP, CBC, ANEU, ADIFF, GFR, MDW, TROPHS ####[place] [id number] MCV (RBC) [Entitic vol] 98.1 fL Normal 80.0-99.0 [facility] Comment on above: Performed By: #### B MP, CBC, ANEU, ADIFF, GFR, MDW, TROPHS ####[place] [address] [place] [id number] Platelet 149 10 3/mcL Low 150-450 [facility] Comment on above: Performed By: #### B MP, CBC, ANEU, ADIFF, GFR, MDW, TROPHS ####[place] [address] [place] [address] Platelet mean volume (Bld) [Entitic vol] 10.9 fL High 6.6-10.5 [facility] Comment on above: Performed By: #### B MP, CBC, ANEU, ADIFF, GFR, MDW, TROPHS ####[place] [address] [place], [place] [address] RBC 3.35 10 6/mcL Low 4.10-5.30 [facility] Comment on above: Performed By: #### B MP, CBC, ANEU, ADIFF, GFR, MDW, TROPHS ####[place] [address] [place], [place] [address] WBC 8.3 10 3/mcL Normal 4.5-10.8 [facility] Comment on above: Performed By: #### B MP, CBC, ANEU, ADIFF, GFR, MDW, TROPHS ####[facility] [place], [place] [address] CBC W/Diff, Automatedon 05-0 4-2024 Absolute Lymph 0.58 X10 3/uL Low 0.83-4.51 [facility] Comment on above: Performed By: #### L 100.0100, L500.4050 ####[facility] [address] [facility] [place], [address] Absolute Neut 10.2 X10 3/uL High 2.0-7.7 [facility] Comment on above: Performed By: #### L 100.0100, L500.4050 ####[facility] [address] [place], [address] Basophils/100 WBC (Bld) 0.3 % Normal 0-1 [facility] Comment on above: Performed By: #### L 100.0100, L500.4050 ####[facility] [address] [facility] [place], [address] Eosinophils/100 WBC (Bld) 2.0 % Normal 0-5 [facility] Comment on above: Performed By: #### L 100.0100, L500.4050 ####[facility] [address] [place], [address] Erythrocyte distribution width (RBC) [Ratio] 15.9 % High 11.6-14.6 [facility] Comment on above: Performed By: #### L 100.0100, L500.4050 ####[facility] [address] [place], [address] Hematocrit (Bld) [Volume fraction] 32.9 % Low 37-47 [facility] Comment on above: Performed By: #### L 100.0100, L500.4050 ####[facility] [address] [place], [address] Hemoglobin (Bld) [Mass/Vol] 10.9 g/dL Low 12.0-15.0 [facility] Comment on above: Performed By: #### L 100.0100, L500.4050 ####[facility] [address] [place], [address] IG% 0.500 Normal 0.0-0.9 [facility] Comment on above: Result Comment: IG% - Immature Granulocytes (promyelocytes, myelocytes andmetamyelocytes) > 1% indicates that a LEFT SHIFT is Present. Performed By: #### L 100.0100, L500.4050 ####[facility] [address] [place], [address] Lymphocytes/100 WBC (Bld) 4.9 % Low 19-41 [facility] Comment on above: Performed By: #### L 100.0100, L500.4050 ####[facility] [address] [place], [address] MCH (RBC) [Entitic mass] 33.1 pg High 27.0-32.0 [facility] Comment on above: Performed By: #### L 100.0100, L500.4050 ####[facility] [address] [place], [address] MCHC (RBC) [Mass/Vol] 33.1 g/dL Normal 32-36 [facility] Comment on above: Performed By: #### L 100.0100, L500.4050 ####[facility] [address] [place], [address] MCV (RBC) [Entitic vol] 100.0 fL High 81-99 [facility] Comment on above: Performed By: #### L 100.0100, L500.4050 ####[facility] [address] [place], [address] Monocytes/100 WBC (Bld) 6.5 % Normal 0-10 [facility] Comment on above: Performed By: #### L 100.0100, L500.4050 ####[facility] [address] [place], [address] Neutrophils/100 WBC (Bld) 85.8 % High 47-70 [facility] Comment on above: Performed By: #### L 100.0100, L500.4050 ####[facility] [address] [place], [address] Nucleated RBC (Bld) [#/Vol] 0 10*3/uL Normal 0-5 [facility] Comment on above: Performed By: #### L 100.0100, L500.4050 ####[facility] [address] [place], [address] Platelet mean volume (Bld) [Entitic vol] 12.6 fL High 6.2-12.0 [facility] Comment on above: Performed By: #### L 100.0100, L500.4050 ####[facility] [address] [place], [address] Platelets (Bld) [#/Vol] 175 10*3/uL Normal 150-450 [facility] Comment on above: Performed By: #### L 100.0100, L500.4050 ####[facility] [address] [place], [address] RBC (Bld) [#/Vol] 3.29 10*6/uL Low 4.2-5.4 [facility] Comment on above: Performed By: #### L 100.0100, L500.4050 ####[facility] [address] [place], [address] RDW SD 57.1 fl High 35.1-43.9 [facility] Comment on above: Performed By: #### L 100.0100, L500.4050 ####[facility] [address] [place], [address] WBC (Bld) [#/Vol] 11.9 10*3/uL High 4.4-11.0 [facility] Comment on above: Performed By: #### L 100.0100, L500.4050 ####[facility] [address] [place], [address] CVFLURVon 07-31-2024 FLU A PCR Negative Normal Negative [facility] Comment on above: Performed By: #### C VFLURV ####[place] [address] [place], [place] [address] FLU B PCR Negative Normal Negative [facility] Comment on above: Performed By: #### C VFLURV ####[place] [address] [place], [place] [address] RSV PCR Negative Normal Negative [facility] Comment on above: Performed By: #### C VFLURV ####[place] [address] [place], [place] [address] SARS-CoV-2 (COVID-19) RNA YANI+probe Ql (Unsp spec) Negative Normal Negative [facility] Comment on above: Result Comment: Resu [...] results. Performed By: #### C VFLURV ####[place] [address] [place], [place] [address] Chest PA and Lateralon 07-31 Chest PA and Lateral Normal [facility] Comprehensive Metabolic Prof ilon 07-31-2024 Albumin [Mass/Vol] 3.6 g/dL Normal 3.5-5.0 [facility] Comment on above: Performed By: #### L 100.0100, L500.4050 ####[facility] [address] [facility] [place], [address] Albumin/Globulin [Mass ratio] 1.2 {ratio} Normal 0.9-2.4 [facility] Comment on above: Performed By: #### L 100.0100, L500.4050 ####[facility] [address] [place], [address] ALK PHOS 75 U/L Normal 35-104 [facility] Comment on above: Performed By: #### L 100.0100, L500.4050 ####[facility] [address] [place], [address] ALT [Catalytic activity/Vol] 21 U/L Normal <=34 [facility] Comment on above: Performed By: #### L 100.0100, L500.4050 ####[facility] [address] [place], [address] AST [Catalytic activity/Vol] 31 U/L Normal <=31 [facility] Comment on above: Performed By: #### L 100.0100, L500.4050 ####[facility] [address] [place], [address] Bilirubin [Mass/Vol] 0.56 mg/dL Normal 0.00-1.30 [facility] Comment on above: Performed By: #### L 100.0100, L500.4050 ####[facility] [address] [place], [address] BUN/CRE 6.5 RATIO Low 10-20 [facility] Comment on above: Performed By: #### L 100.0100, L500.4050 ####[facility] [address] [place], [address] Calcium [Mass/Vol] 8.6 mg/dL Normal 7.6-11.0 [facility] Comment on above: Performed By: #### L 100.0100, L500.4050 ####[facility] [address] [place], [address] Chloride [Moles/Vol] 96 mmol/L Low 98-108 [facility] Comment on above: Performed By: #### L 100.0100, L500.4050 ####[facility] [address] [place], [address] CO2 [Moles/Vol] 24.3 mmol/L Normal 21.0-32.0 [facility] Comment on above: Performed By: #### L 100.0100, L500.4050 ####[facility] [address] [place], [address] Creatinine [Mass/Vol] 5.93 mg/dL High 0.70-1.20 [facility] Comment on above: Performed By: #### L 100.0100, L500.4050 ####[facility] [address] [place], [address] ECRCL 11.94 ml/min Low 50-250 [facility] Comment on above: Performed By: #### L 100.0100, L500.4050 ####[facility] [address] [place], [address] GAP 15 Normal 5-15 [facility] Comment on above: Performed By: #### L 100.0100, L500.4050 ####[facility] [address] [place], [address] GFR/1.73 sq M.predicted among non-blacks MDRD (S/P/Bld) [Vol rate/Area] 8 mL/min/{1.73_m2} Low >60 [facility] Comment on above: Result Comment: mL/m in/1.73m2 CKD-EPI Creatinine Equation (2020) Performed By: #### L 100.0100, L500.4050 ####[facility] [address] [place], [address] Globulin (S) [Mass/Vol] 2.9 g/dL Normal 2.2-4.2 [facility] Comment on above: Performed By: #### L 100.0100, L500.4050 ####[facility] [address] [place], [address] Glucose [Mass/Vol] 224 mg/dL High 70-99 [facility] Comment on above: Performed By: #### L 100.0100, L500.4050 ####[facility] [address] [place], [address] Potassium [Moles/Vol] 4.6 mmol/L Normal 3.3-5.1 [facility] Comment on above: Performed By: #### L 100.0100, L500.4050 ####[facility] [address] [place], [address] Sodium [Moles/Vol] 135 mmol/L Normal 133-145 [facility] Comment on above: Performed By: #### L 100.0100, L500.4050 ####[facility] [address] [place], [address] T PROT 6.5 g/dL Normal 5.9-8.4 [facility] Comment on above: Performed By: #### L 100.0100, L500.4050 ####[facility] [address] [place], [address] Urea nitrogen [Mass/Vol] 39 mg/dL High 4-19 [facility] Comment on above: Performed By: #### L 100.0100, L500.4050 ####[facility] [address] [place], [address] Emergency Department Summary on 07-31-2024 Emergency Department Summary Normal [facility] H AND P Exam - Hospitaliston 07-31-2024 H&P Exam - Hospitalist Normal [facility] L503.7505on 07-31-2024 Natriuretic peptide B (Bld) [Mass/Vol] 5291 pg/mL High <=900 [facility] Comment on above: Result Comment: Hear t Failure Unlikely: < 300 pg/mLHeart Failure Likely< 50 Years: > 450 pg/mL50-75 Years: > 900 pg/mL>75 Years: > 1800 pg/mL Performed By: #### L 503.7502 ####[facility] [address] [place], [address] L509.7001on 07-31-2024 Procalcitonin 0.47 ng/mL High <=0.10 [facility] Comment on above: Result Comment: Inte rpretation:<0.10-0.25 ng/mL: Antibiotic therapy discouraged. Bacterialinfection unlikely.0.25-0.50 ng/mL: Antibiotic therapy encouraged. Bacterialinfection possible.>0.50 ng/mL: Antibiotic therapy strongly encouraged.Suggestive of presence of bacterial infection.PCT should always be interpreted in the clinical context ofthe patient. Therefore, clinicians should use the PCTresults in conjunction with other laboratory findings andclinical signs of the patient. Performed By: #### L 509.7001 ####[facility] [address] [place], [address] LABORATORYOrdered By: SYSTEM SYSTEM on 07-31-2024 Basophils [...] ng/L Male: 0-76 ng/L Testing performed on [employer] using a homogeneous sandwich chemiluminescent immunoassay based on [employer] technology. Urea nitrogen [Mass/Vol] 34 mg/dL High [...] INFLUENZA B Negative RSV PCR Negative Normal [facility] Comment on above: Performed By: #### M 100.678 ####[facility] [address] [place], [address] Magnesiumon 07-31-2024 Magnesium [Mass/Vol] 2.0 mg/dL Normal 1.5-2.2 [facility] Comment on above: Order Comment: Comme nts: May add to ED labsComments: may add to ED labs Performed By: #### L 501.2300, L501.5200 ####[facility] [address] [place], [address] Phosphoruson 07-31-2024 Phosphate [Mass/Vol] 3.3 mg/dL Normal 2.7-4.5 [facility] Comment on above: Order Comment: Comme nts: May add to ED labsComments: may add to ED labs Performed By: #### L 501.2300, L501.5200 ####[facility] [address] [place], [address] TROPHSon 07-31-2024 High Sensitivity Troponin I 16 ng/L Normal 0-51 [facility] Comment on above: Result Comment: High Sensitive Troponin I Reference Ranges: Female: 0-51 ng/L Male: 0-76 ng/L Testing performed on [employer] using a homogeneous sandwich chemiluminescent immunoassay based on [employer] technology. Performed By: #### B MP, CBC, ANEU, ADJASON, GFR, MARCELLA, [facility] ####[place] [address] [place], [place] [address] XR CHEST 1 VIEWon 07-31-2024 XR CHEST [...] 07/31/2024 4:10:24 AM Ordering Provider: TORRI Self [facility] .Auto Diffon 04-20-2024 Basophil, Absolute 0.1 10 3/mcL Normal 0.0-0.2 [facility] Comment on above: Performed By: #### A ALDO, TSH, LIPID, ADIFF, CBC, GFR, CMP ####[address] [address] Basophils/100 WBC (Bld) 0.8 % Normal 0.0-2.5 [facility] Comment on above: Performed By: #### A ALDO, TSH, LIPID, ADIFF, CBC, GFR, CMP ####[place] [address] [place], [place] [address] Eosinophil, Absolute 0.3 10 3/mcL Normal 0.0-0.7 [facility] Comment on above: Performed By: #### A ALDO, TSH, LIPID, ADIFF, CBC, GFR, CMP ####[address] [address] Eosinophils/100 WBC (Bld) 4.6 % Normal 0.0-7.0 [facility] Comment on above: Performed By: #### A ALDO, TSH, LIPID, ADIFF, CBC, GFR, CMP ####[address] [address] Lymphocyte, Absolute 0.8 10 3/mcL Low 0.9-4.3 [facility] Comment on above: Performed By: #### A ALDO, TSH, LIPID, ADIFF, CBC, GFR, CMP ####[facility] [place], [place] [address] Lymphocytes/100 WBC (Bld) 11.9 % Low 20.0-40.0 [facility] Comment on above: Performed By: #### A ALDO, TSH, LIPID, ADIFF, CBC, GFR, CMP ####[facility] [place], [place] [address] Monocyte, Absolute 0.7 10 3/mcL Normal 0.1-1.4 [facility] Comment on above: Performed By: #### A ALDO, TSH, LIPID, ADIFF, CBC, GFR, CMP ####[place] [address] [place], [place] [address] Monocytes/100 WBC (Bld) 10.7 % Normal 2.0-13.0 [facility] Comment on above: Performed By: #### A ALDO, TSH, LIPID, ADIFF, CBC, GFR, CMP ####[address] [address] Neutrophils/100 WBC (Bld) 72.0 % Normal 50.0-75.0 [facility] Comment on above: Performed By: #### A ALDO, TSH, LIPID, ADIFF, CBC, GFR, CMP ####[place] [address] [place], [place] [address] .GFRon 04-20-2024 GFR 10 ml/min/1.73sqm Normal [facility] Comment on above: Result Comment: GFR [...] ALDO, TSH, LIPID, ADIFF, CBC, GFR, CMP ####[facility] [place], [place] [address] GFR Non- 9 ml/min/1.73sqm Normal [facility] Comment on above: Result Comment: GFR [...] ALDO, TSH, LIPID, ADIFF, CBC, GFR, CMP ####[place] [address] [place], [place] [address] .NEUABSon 04-20-2024 Neutrophil, Absolute 4.8 10 3/mcL Normal 2.3-8.1 [facility] Comment on above: Performed By: #### A ALDO, TSH, LIPID, ADIFF, CBC, GFR, CMP ####[facility] [place], [place] [address] CBCon 04-20-2024 Erythrocyte distribution width (RBC) [Ratio] 18.6 % High 11.5-15.5 [facility] Comment on above: Order Comment: 6 mon ths Performed By: #### A ALDO, TSH, LIPID, ADIFF, CBC, GFR, CMP ####[place] [address] [place], [place] [address] Hematocrit (Bld) [Volume fraction] 34.9 % Normal 34.0-46.0 [facility] Comment on above: Order Comment: 6 mon ths Performed By: #### A ALDO, TSH, LIPID, ADIFF, CBC, GFR, CMP ####[facility] [place], [place] [address] Hgb 11.9 G/dL Low 12.0-16.0 [facility] Comment on above: Order Comment: 6 mon ths Performed By: #### A ALDO, TSH, LIPID, ADIFF, CBC, GFR, CMP ####[facility] [place] [place], [place] [address] MCH (RBC) [Entitic mass] 32.6 pg Normal 27.0-33.0 [facility] Comment on above: Order Comment: 6 mon ths Performed By: #### A ALDO, TSH, LIPID, ADIFF, CBC, GFR, CMP ####[facility] [place] [place], [place] [address] MCHC 34.0 G/dL Normal 32.0-36.0 [facility] Comment on above: Order Comment: 6 mon ths Performed By: #### A ALDO, TSH, LIPID, ADIFF, CBC, GFR, CMP ####[facility] [address] [place], [place] [address] MCV (RBC) [Entitic vol] 96.0 fL Normal 80.0-99.0 [facility] Comment on above: Order Comment: 6 mon ths Performed By: #### A ALDO, TSH, LIPID, ADIFF, CBC, GFR, CMP ####[place] [address] [place], [place] [address] Platelet 146 10 3/mcL Low 150-450 [facility] Comment on above: Order Comment: 6 mon ths Performed By: #### A ALDO, TSH, LIPID, ADIFF, CBC, GFR, CMP ####[facility] [place] [place], [place] [address] Platelet mean volume (Bld) [Entitic vol] 10.7 fL High 6.6-10.5 [facility] Comment on above: Order Comment: 6 mon ths Performed By: #### A ALDO, TSH, LIPID, ADIFF, CBC, GFR, CMP ####[facility] [place], [place] [address] RBC 3.64 10 6/mcL Low 4.10-5.30 [facility] Comment on above: Order Comment: 6 mon ths Performed By: #### A ALDO, TSH, LIPID, ADIFF, CBC, GFR, CMP ####[facility] [place], [place] [address] WBC 6.7 10 3/mcL Normal 4.5-10.8 [facility] Comment on above: Order Comment: 6 mon ths Performed By: #### A ALDO, TSH, LIPID, ADIFF, CBC, GFR, CMP ####[address] [address] CMPon 04-20-2024 Albumin Level 3.2 G/dL Low 3.5-5.0 [facility] Comment on above: Order Comment: 6 mon ths Performed By: #### A ALDO, TSH, LIPID, ADIFF, CBC, GFR, CMP ####[facility] [address] [place], [place] [address] Albumin/Globulin [Mass ratio] 0.9 {ratio} Low 1.1-2.5 [facility] Comment on above: Order Comment: 6 mon ths Performed By: #### A ALDO, TSH, LIPID, ADIFF, CBC, GFR, CMP ####[place] [address] [place], [place] [address] ALP [Catalytic activity/Vol] 87 U/L Normal 40-135 [facility] Comment on above: Order Comment: 6 mon ths Performed By: #### A ALDO, TSH, LIPID, ADIFF, CBC, GFR, CMP ####[facility] [place] [address] ALT [Catalytic activity/Vol] 26 U/L Normal 14-59 [facility] Comment on above: Order Comment: 6 mon ths Performed By: #### A ALDO, TSH, LIPID, ADIFF, CBC, GFR, CMP ####[facility] [address] [place], [place] [address] AST [Catalytic activity/Vol] 23 U/L Normal 10-40 [facility] Comment on above: Order Comment: 6 mon ths Performed By: #### A ALDO, TSH, LIPID, ADIFF, CBC, GFR, CMP ####[facility] [place], [place] [address] Bili Total 0.6 mg/dL Normal 0.2-1.0 [facility] Comment on above: Order Comment: 6 mon ths Result Comment: Use of this assay is not recommended for patients undergoing treatment with eltrombopag due to the potential for falsely elevated results. Performed By: #### A ALDO, TSH, LIPID, ADIFF, CBC, GFR, CMP ####[place] [address] [place], [place] [address] BUN/Creatinine Ratio 8 ratio Normal 7-27 [facility] Comment on above: Order Comment: 6 mon ths Performed By: #### A ALDO, TSH, LIPID, ADIFF, CBC, GFR, CMP ####[place] [address] [place], [place] [address] Calcium [Mass/Vol] 8.8 mg/dL Normal 8.4-10.2 [facility] Comment on above: Order Comment: 6 mon ths Performed By: #### A ALDO, TSH, LIPID, ADIFF, CBC, GFR, CMP ####[address] [address] Chloride [Moles/Vol] 100 mmol/L Normal 98-107 [facility] Comment on above: Order Comment: 6 mon ths Performed By: #### A ALDO, TSH, LIPID, ADIFF, CBC, GFR, CMP ####[place] [address] [place], [place] [address] CO2 [Moles/Vol] 34 mmol/L High 22-29 [facility] Comment on above: Order Comment: 6 mon ths Performed By: #### A ALDO, TSH, LIPID, ADIFF, CBC, GFR, CMP ####[place] [address] [place], [place] [address] Creatinine [Mass/Vol] 5.17 mg/dL High 0.55-1.02 [facility] Comment on above: Order Comment: 6 mon ths Result Comment: Test ing performed on Siemens Dimension EXL analyzer using a modified kinetic Yolie technique. Performed By: #### A ALDO, TSH, LIPID, ADIFF, CBC, GFR, CMP ####[facility] [place], [place] [address] Electrolyte Balance 6.0 mEq/L Normal 4.0-15.0 [facility] Comment on above: Order Comment: 6 mon ths Performed By: #### A ALDO, TSH, LIPID, ADIFF, CBC, GFR, CMP ####[place] [address] [place], [place] [address] Globulin 3.7 G/dL Normal [facility] Comment on above: Order Comment: 6 mon ths Performed By: #### A ALDO, TSH, LIPID, ADIFF, CBC, GFR, CMP ####[place] [address] [place], [place] [address] Glucose [Mass/Vol] 176 mg/dL High 70-105 [facility] Comment on above: Order Comment: 6 mon ths Performed By: #### A ALDO, TSH, LIPID, ADIFF, CBC, GFR, CMP ####[address] [address] Potassium [Moles/Vol] 4.2 mmol/L Normal 3.5-5.1 [facility] Comment on above: Order Comment: 6 mon ths Performed By: #### A ALDO, TSH, LIPID, ADIFF, CBC, GFR, CMP ####[place] [address] [place], [place] [address] Sodium [Moles/Vol] 140 mmol/L Normal 136-145 [facility] Comment on above: Order Comment: 6 mon ths Performed By: #### A ALDO, TSH, LIPID, ADIFF, CBC, GFR, CMP ####[place] [address] [place], [place] [address] Total Protein 6.9 G/dL Normal 6.4-8.2 [facility] Comment on above: Order Comment: 6 mon ths Performed By: #### A ALDO, TSH, LIPID, ADIFF, CBC, GFR, CMP ####[place] [address] [address] [place], [place] [address] Urea nitrogen [Mass/Vol] 43 mg/dL High 7-18 [facility] Comment on above: Order Comment: 6 thu ths Performed By: #### A ALDO, TSH, LIPID, ADIFF, CBC, GFR, CMP ####[facility] [place], [place] [address] LABORATORYOrdered By: SYSTEM SYSTEM on 04-20-2024 Albumin [...] above: Interpretive Data: T esting performed on [employer] Dimension EXL analyzer using a modified kinetic [...] 04-20-2024 Cholesterol [Mass/Vol] 116 mg/dL Normal 0-200 [facility] Comment on above: Order Comment: 6 mon ths Result Comment: Chol esterol Reference Interval: Less than 200 Desirable 200-239 Borderline high risk 240 and above High risk Performed By: #### A ALDO, TSH, LIPID, ADIFF, CBC, GFR, CMP ####[facility] [address] [place], [place] [address] Cholesterol in HDL [Mass/Vol] 39 mg/dL Low 40-60 [facility] Comment on above: Order Comment: 6 mon ths Performed By: #### A ALDO, TSH, LIPID, ADIFF, CBC, GFR, CMP ####[place] [address] [place], [place] [address] Cholesterol in LDL [Mass/Vol] 51 mg/dL Normal 0-130 [facility] Comment on above: Order Comment: 6 mon ths Performed By: #### A ALDO, TSH, LIPID, ADIFF, CBC, GFR, CMP ####[facility] [place], [place] [address] Triglyceride [Mass/Vol] 129 mg/dL Normal 0-150 [facility] Comment on above: Order Comment: 6 mon ths Result Comment: Trig lyceride Reference Interval: Less than 150 Normal 150-199 Borderline high risk 200-499 High risk 500 or higher Very high risk Performed By: #### A ALDO, TSH, LIPID, ADIFF, CBC, GFR, CMP ####[facility] [address] [place], [place] [address] TSHon 04-20-2024 TSH Qn 3.85 m[IU]/L High 0.36-3.74 [facility] Comment on above: Order Comment: 6 thus Performed By: #### A ALDO, TSH, LIPID, ADIFF, CBC, GFR, CMP ####[place] [address] [place], [place] [address] CBC W/Diff, Automatedon 02-27 Absolute Lymph 0.64 X10 3/uL Low 0.83-4.51 [facility] Comment on above: Performed By: #### L 100.0100, L500.4050 ####[facility] [address] [place], [address] Absolute Neut 7.4 X10 3/uL Normal 2.0-7.7 [facility] Comment on above: Performed By: #### L 100.0100, L500.4050 ####[facility] [address] [place], [address] Basophils/100 WBC (Bld) 0.3 % Normal 0-1 [facility] Comment on above: Performed By: #### L 100.0100, L500.4050 ####[facility] [address] [place], [address] Eosinophils/100 WBC (Bld) 2.1 % Normal 0-5 [facility] Comment on above: Performed By: #### L 100.0100, L500.4050 ####[facility] [address] [place], [address] Erythrocyte distribution width (RBC) [Ratio] 15.9 % High 11.6-14.6 [facility] Comment on above: Performed By: #### L 100.0100, L500.4050 ####[facility] [address] [place], [address] Hematocrit (Bld) [Volume fraction] 36.8 % Low 37-47 [facility] Comment on above: Performed By: #### L 100.0100, L500.4050 ####[facility] [address] [place], [address] Hemoglobin (Bld) [Mass/Vol] 12.3 g/dL Normal 12.0-15.0 [facility] Comment on above: Performed By: #### L 100.0100, L500.4050 ####[facility] [address] [place], [address] IG% 0.400 Normal 0.0-0.9 [facility] Comment on above: Result Comment: IG% - Immature Granulocytes (promyelocytes, myelocytes andmetamyelocytes) > 1% indicates that a LEFT SHIFT is Present. Performed By: #### L 100.0100, L500.4050 ####[facility] [address] [place], [address] Lymphocytes/100 WBC (Bld) 6.9 % Low 19-41 [facility] Comment on above: Performed By: #### L 100.0100, L500.4050 ####[facility] [address] [place], [address] MCH (RBC) [Entitic mass] 31.1 pg Normal 27.0-32.0 [facility] Comment on above: Performed By: #### L 100.0100, L500.4050 ####[facility] [address] [place], [address] MCHC (RBC) [Mass/Vol] 33.4 g/dL Normal 32-36 [facility] Comment on above: Performed By: #### L 100.0100, L500.4050 ####[facility] [address] [place], [address] MCV (RBC) [Entitic vol] 93.2 fL Normal 81-99 [facility] Comment on above: Performed By: #### L 100.0100, L500.4050 ####[facility] [address] [place], [address] Monocytes/100 WBC (Bld) 11.2 % High 0-10 [facility] Comment on above: Performed By: #### L 100.0100, L500.4050 ####[facility] [address] [place], [address] Neutrophils/100 WBC (Bld) 79.1 % High 47-70 [facility] Comment on above: Performed By: #### L 100.0100, L500.4050 ####[facility] [address] [place], [address] Nucleated RBC (Bld) [#/Vol] 0 10*3/uL Normal 0-5 [facility] Comment on above: Performed By: #### L 100.0100, L500.4050 ####[facility] [address] [place], [address] Platelet mean volume (Bld) [Entitic vol] 12.1 fL High 6.2-12.0 [facility] Comment on above: Performed By: #### L 100.0100, L500.4050 ####[facility] [address] [place], [address] Platelets (Bld) [#/Vol] 122 10*3/uL Low 150-450 [facility] Comment on above: Performed By: #### L 100.0100, L500.4050 ####[facility] [address] [place], [address] RBC (Bld) [#/Vol] 3.95 10*6/uL Low 4.2-5.4 [facility] Comment on above: Performed By: #### L 100.0100, L500.4050 ####[facility] [address] [place], [address] RDW SD 54.2 fl High 35.1-43.9 [facility] Comment on above: Performed By: #### L 100.0100, L500.4050 ####[facility] [address] [place], [address] WBC (Bld) [#/Vol] 9.3 10*3/uL Normal 4.4-11.0 [facility] Comment on above: Performed By: #### L 100.0100, L500.4050 ####[facility] [address] [place], [address] Chest PA and Lateralon 03-14 Chest PA and Lateral Normal [facility] Comprehensive Metabolic Prof ilon 03-14-2024 Albumin [Mass/Vol] 3.3 g/dL Normal 3.2-5.0 [facility] Comment on above: Performed By: #### L 100.0100, L500.4050 ####[facility] [address] [place], [address] Albumin/Globulin [Mass ratio] 0.9 {ratio} Normal 0.9-2.4 [facility] Comment on above: Performed By: #### L 100.0100, L500.4050 ####[facility] [address] [place], [address] ALK P 86 U/L Normal 45-117 [facility] Comment on above: Performed By: #### L 100.0100, L500.4050 ####[facility] [address] [place], [address] ALT [Catalytic activity/Vol] 34 U/L Normal 13-56 [facility] Comment on above: Performed By: #### L 100.0100, L500.4050 ####[facility] [address] [place], [address] AST [Catalytic activity/Vol] 32 U/L Normal 15-37 [facility] Comment on above: Performed By: #### L 100.0100, L500.4050 ####[facility] [address] [place], [address] Bilirubin [Mass/Vol] 0.80 mg/dL Normal 0.20-1.00 [facility] Comment on above: Result Comment: For patients on eltrombopag therapy, use of Dimension [place] TBIL is not recommended. Performed By: #### L 100.0100, L500.4050 ####[facility] [address] [place], [address] BUN/CRE 8.3 RATIO Low 10-20 [facility] Comment on above: Performed By: #### L 100.0100, L500.4050 ####[facility] [address] [place], [address] CA,Total 8.7 mg/dL Normal 8.5-10.1 [facility] Comment on above: Performed By: #### L 100.0100, L500.4050 ####[facility] [address] [place], [address] Chloride [Moles/Vol] 95 mmol/L Low 98-107 [facility] Comment on above: Performed By: #### L 100.0100, L500.4050 ####[facility] [address] [place], [address] CO2 [Moles/Vol] 27.0 mmol/L Normal 21.0-32.0 [facility] Comment on above: Performed By: #### L 100.0100, L500.4050 ####[facility] [address] [place], [address] Creatinine [Mass/Vol] 7.81 mg/dL Invalid Interpretation Code 0.55-1.02 [facility] Comment on above: Result Comment: Naresh ical Result(s) Called at: 11:21:34 03/14/2024 by:Jayla jane TO PATRICIA. Results read back by same.The validity of the calculated GFR GFRAA in patients over70 years has not been determined. Clinical correlation isessential. Performed By: #### L 100.0100, L500.4050 ####[facility] [address] [place], [address] ECRCL 8.77 ml/min Normal [facility] Comment on above: Performed By: #### L 100.0100, L500.4050 ####[facility] [address] [place], [address] EST GFR - AA 7 mL/min Low >60 [facility] Comment on above: Result Comment: Afri can Irish GFR Calc Performed By: #### L 100.0100, L500.4050 ####[facility] [address] [place], [address] GAP 11 Normal 5-15 [facility] Comment on above: Performed By: #### L 100.0100, L500.4050 ####[facility] [address] [place], [address] GFR/1.73 sq M.predicted among non-blacks MDRD (S/P/Bld) [Vol rate/Area] 6 mL/min/{1.73_m2} Low >60 [facility] Comment on above: Result Comment: Non- GFR Calc Performed By: #### L 100.0100, L500.4050 ####[facility] [address] [place], [address] Globulin (S) [Mass/Vol] 3.5 g/dL Normal 2.2-4.2 [facility] Comment on above: Performed By: #### L 100.0100, L500.4050 ####[facility] [address] [place], [address] Glucose [Mass/Vol] 253 mg/dL High 74-106 [facility] Comment on above: Result Comment: Gluc ose result greater than or equal to 200 mg/dLsuggests DIABETES MELLITUS per A.D.A. criteria. Performed By: #### L 100.0100, L500.4050 ####[facility] [address] [place], [address] Potassium [Moles/Vol] 4.5 mmol/L Normal 3.5-5.1 [facility] Comment on above: Performed By: #### L 100.0100, L500.4050 ####[facility] [address] [place], [address] Sodium [Moles/Vol] 133 mmol/L Low 136-145 [facility] Comment on above: Performed By: #### L 100.0100, L500.4050 ####[facility] [address] [place], [address] T PROT 6.8 g/dL Normal 6.4-8.2 [facility] Comment on above: Performed By: #### L 100.0100, L500.4050 ####[facility] [address] [place], [address] Urea nitrogen [Mass/Vol] 65 mg/dL High 7-18 [facility] Comment on above: Performed By: #### L 100.0100, L500.4050 ####[facility] [address] [place], [address] Emergency Department Summary on 03-14-2024 Emergency Department Summary Normal [facility] Urinalysis, Completeon 03-14 BACTERIA 1+ /hpf Normal None Seen [facility] Comment on above: Order Comment: COLLE CTOR TO SPECIFY Performed By: #### L 400.0001 ####[facility] [address] [place], [address] EPI,SQUAMOUS 0-5 SEEN Normal 5-10 [facility] Comment on above: Order Comment: [facility] CTOR TO SPECIFY Performed By: #### L 400.0001 ####[facility] [address] [place], [address] Mucus Ql (Urine sed) 1+ /hpf Normal [facility] Comment on above: Order Comment: [facility] CTOR TO SPECIFY Performed By: #### L 400.0001 ####[facility] [address] [place], [address] RBC 0-5 SEEN Normal 0-5 [facility] Comment on above: Order Comment: [facility] CTOR TO SPECIFY Performed By: #### L 400.0001 ####[facility] [address] [place], [address] WBC 0-5 SEEN Normal 0-5 [facility] Comment on above: Order Comment: [facility] CTOR TO SPECIFY Performed By: #### L 400.0001 ####[facility] [address] [place], [address] M100.678on 03-13-2024 M100.678 Normal [facility] Comment on above: Performed By: #### M 100.678 ####[facility] [address] [place], [address] Chest PA and Lateralon 03-12 Chest PA and Lateral Normal [facility] Emergency Department Summary on 03-12-2024 Emergency Department Summary Normal [facility] BD BONE DENSITY DEXA AXIAL S KELETONon 01-21-2024 BD BONE DENSITY DEXA AXIAL [place]TON ORIGINAL EXAMINATION: BONE ZVZRISHSCJFO40/23/2024 2:00 pm TECHNIQUE: Dual energy bone densitometry [...] 01/21/2024 12:39:55 PM Ordering Provider: DENISSE Self [facility] CBC-Complete Blood Cnt No Di ffon 12-19-2023 HCT Normal 37-47 [facility] Comment on above: Result Comment: Canc elled via OM: Order cancelled - Patient discharged Performed By: #### L 100.0500 ####[facility] [address] [place], [place], [address] HGB Normal 12.0-15.0 [facility] Comment on above: Result Comment: Canc elled via OM: Order cancelled - Patient discharged Performed By: #### L 100.0500 ####[facility] [address] [place], [place], [id number] MCH Normal 27.0-32.0 [facility] Comment on above: Result Comment: Canc elled via OM: Order cancelled - Patient discharged Performed By: #### L 100.0500 ####[facility] [address] [place], [address] MCHC Normal 32-36 [facility] Comment on above: Result Comment: Canc elled via OM: Order cancelled - Patient discharged Performed By: #### L 100.0500 ####[facility] [address] [place], [address] MCV Normal 81-99 [facility] Comment on above: Result Comment: Canc elled via OM: Order cancelled - Patient discharged Performed By: #### L 100.0500 ####[facility] [address] [place], [address] PLT Normal 150-450 [facility] Comment on above: Result Comment: Canc elled via OM: Order cancelled - Patient discharged Performed By: #### L 100.0500 ####[facility] [address] [place], [address] RBC Normal 4.2-5.4 [facility] Comment on above: Result Comment: Canc elled via OM: Order cancelled - Patient discharged Performed By: #### L 100.0500 ####[facility] [address] [place], [address] RDW CV Normal 11.6-14.6 [facility] Comment on above: Result Comment: Canc elled via OM: Order cancelled - Patient discharged Performed By: #### L 100.0500 ####[facility] [address] [place], [address] RDW SD Normal 35.1-43.9 [facility] Comment on above: Result Comment: Canc elled via OM: Order cancelled - Patient discharged Performed By: #### L 100.0500 ####[facility] [address] [place], [address] WBC Normal 4.4-11.0 [facility] Comment on above: Result Comment: Canc elled via OM: Order cancelled - Patient discharged Performed By: #### L 100.0500 ####[facility] [facility] [address] [place], [address] Culture, Blood (WB)on 2023 CUB No growth in 5 days. Normal [facility] Comment on above: Performed By: #### L 503.6005, M200.1000 ####[facility] [address] [place], [address] CBC-Complete Blood Cnt No Di ffon 12-18-2023 HCT Normal 37-47 [facility] Comment on above: Result Comment: DR Jordan ANCELLED Performed By: #### L 100.0500, L500.4050 ####[facility] [address] [place], [address] HGB Normal 12.0-15.0 [facility] Comment on above: Result Comment: DR Jordan ANCELLED Performed By: #### L 100.0500, L500.4050 ####[facility] [address] [place], [address] MCH Normal 27.0-32.0 [facility] Comment on above: Result Comment: DR Jordan ANCELLED Performed By: #### L 100.0500, L500.4050 ####[facility] [address] [place], [address] MCHC Normal 32-36 [facility] Comment on above: Result Comment: DR Jordan ANCELLED Performed By: #### L 100.0500, L500.4050 ####[facility] [address] [place], [address] MCV Normal 81-99 [facility] Comment on above: Result Comment: DR Jordan ANCELLED Performed By: #### L 100.0500, L500.4050 ####[facility] [address] [place], [address] PLT Normal 150-450 [facility] Comment on above: Result Comment: DR Jordan ANCELLED Performed By: #### L 100.0500, L500.4050 ####[facility] [address] [place], [address] RBC Normal 4.2-5.4 [facility] Comment on above: Result Comment: DR Jordan ANCELLED Performed By: #### L 100.0500, L500.4050 ####[facility] [address] [place], [address] RDW CV Normal 11.6-14.6 [facility] Comment on above: Result Comment: DR Jordan ANCELLED Performed By: #### L 100.0500, L500.4050 ####[facility] [address] [place], [address] RDW SD Normal 35.1-43.9 [facility] Comment on above: Result Comment: DR Joradn ANCELLED Performed By: #### L 100.0500, L500.4050 ####[facility] [address] [place], [address] WBC Normal 4.4-11.0 [facility] Comment on above: Result Comment: DR Jordan ANCELLED Performed By: #### L 100.0500, L500.4050 ####[facility] [address] [place], [address] Comprehensive Metabolic Prof ilon 12-18-2023 ALB Normal 3.2-5.0 [facility] Comment on above: Result Comment: DR Jordan ANCELLED Performed By: #### L 100.0500, L500.4050 ####[facility] [address] [place], [address] ALK P Normal 45-117 [facility] Comment on above: Result Comment: DR Jordan ANCELLED Performed By: #### L 100.0500, L500.4050 ####[facility] [address] [place], [address] ALT Normal 13-56 [facility] Comment on above: Result Comment: DR Julian NOVOAELLED Performed By: #### L 100.0500, L500.4050 ####[facility] [address] [place], [address] AST Normal 15-37 [facility] Comment on above: Result Comment: DR Jordan ANCELLED Performed By: #### L 100.0500, L500.4050 ####[facility] [address] [place], [address] BUN Normal 7-18 [facility] Comment on above: Result Comment: DR Julian NOVOAELLED Performed By: #### L 100.0500, L500.4050 ####[facility] [address] [place], [address] BUN/CRE Normal 10-20 [facility] Comment on above: Result Comment: DR Julian NOVOAELLED Performed By: #### L 100.0500, L500.4050 ####[facility] [address] [place], [address] CA,Total Normal 8.5-10.1 [facility] Comment on above: Result Comment: DR Julian NOVOAELLED Performed By: #### L 100.0500, L500.4050 ####[facility] [address] [place], [address] CL Normal 98-107 [facility] Comment on above: Result Comment: DR Julian NOVOAELLED Performed By: #### L 100.0500, L500.4050 ####[facility] [address] [place], [address] CO2 Normal 21.0-32.0 [facility] Comment on above: Result Comment: DR Jordan ANCELLED Performed By: #### L 100.0500, L500.4050 ####[facility] [address] [place], [address] CREAT,SERUM Normal 0.55-1.02 [facility] Comment on above: Result Comment: DR Julian NOVOAELLED Performed By: #### L 100.0500, L500.4050 ####[facility] [address] [place], [address] EST GFR Normal >60 [facility] Comment on above: Result Comment: DR Jordan ANCELLED Performed By: #### L 100.0500, L500.4050 ####[facility] [address] [place], [address] EST GFR - AA Normal >60 [facility] Comment on above: Result Comment: DR Julian NOVOAELLED Performed By: #### L 100.0500, L500.4050 ####[facility] [address] [place], [address] GAP Normal 5-15 [facility] Comment on above: Result Comment: DR Julian NOVOAELLED Performed By: #### L 100.0500, L500.4050 ####[facility] [address] [place], [address] GLU Normal 74-106 [facility] Comment on above: Result Comment: DR Julian NOVOAELLED Performed By: #### L 100.0500, L500.4050 ####[facility] [address] [place], [address] Potassium Normal 3.5-5.1 [facility] Comment on above: Result Comment: DR Jordan ANCELLED Performed By: #### L 100.0500, L500.4050 ####[facility] [address] [place], [address] T BILI Normal 0.20-1.00 [facility] Comment on above: Result Comment: DR Jordan ANCELLED Performed By: #### L 100.0500, L500.4050 ####[facility] [address] [place], [address] T PROT Normal 6.4-8.2 [facility] Comment on above: Result Comment: DR Julian DENNISON Performed By: #### L 100.0500, L500.4050 ####[facility] [address] [place], [address] Comprehensive Metabolic Profil Normal 136-145 [facility] Comment on above: Result Comment: DR Julian DENNISON Performed By: #### L 100.0500, L500.4050 ####[facility] [address] [place], [address] Bedside Glucoseon 12-17-2023 FINGERSTICK GLU 357 mg/dL High 74-106 [facility] Comment on above: Result Comment: GALA GEMENT OF PATIENT CARE PER NURSING PROTOCOL Performed By: #### L 501.080 ####[facility] [address] [place], [address] FINGERSTICK GLU 308 mg/dL High 74-106 [facility] Comment on above: Result Comment: GALA GEMENT OF PATIENT CARE PER NURSING PROTOCOL Performed By: #### L 501.080 ####[facility] [address] [place], [address] FINGERSTICK GLU 284 mg/dL High 74-106 [facility] Comment on above: Result Comment: GALA GEMENT OF PATIENT CARE PER NURSING PROTOCOL Performed By: #### L 501.080 ####[facility] [address] [place], [address] FINGERSTICK GLU 127 mg/dL High 74-106 [facility] Comment on above: Result Comment: GALA GEMENT OF PATIENT CARE PER NURSING PROTOCOL Performed By: #### L 501.080 ####[facility] [address] [place], [address] CBC-Complete Blood Cnt No Di ffon 12-17-2023 Erythrocyte distribution width (RBC) [Ratio] 15.5 % High 11.6-14.6 [facility] Comment on above: Performed By: #### L 100.0500, L500.4050 ####[facility] [address] [place], [address] Hematocrit (Bld) [Volume fraction] 26.4 % Low 37-47 [facility] Comment on above: Performed By: #### L 100.0500, L500.4050 ####[facility] [address] [place], [address] Hemoglobin (Bld) [Mass/Vol] 8.4 g/dL Low 12.0-15.0 [facility] Comment on above: Performed By: #### L 100.0500, L500.4050 ####[facility] [address] [place], [address] MCH (RBC) [Entitic mass] 30.7 pg Normal 27.0-32.0 [facility] Comment on above: Performed By: #### L 100.0500, L500.4050 ####[facility] [address] [place], [address] MCHC (RBC) [Mass/Vol] 31.8 g/dL Low 32-36 [facility] Comment on above: Performed By: #### L 100.0500, L500.4050 ####[facility] [address] [place], [address] MCV (RBC) [Entitic vol] 96.4 fL Normal 81-99 [facility] Comment on above: Performed By: #### L 100.0500, L500.4050 ####[facility] [address] [place], [address] Platelet mean volume (Bld) [Entitic vol] 12.9 fL High 6.2-12.0 [facility] Comment on above: Performed By: #### L 100.0500, L500.4050 ####[facility] [address] [place], [address] Platelets (Bld) [#/Vol] 170 10*3/uL Normal 150-450 [facility] Comment on above: Performed By: #### L 100.0500, L500.4050 ####[facility] [address] [place], [address] RBC (Bld) [#/Vol] 2.74 10*6/uL Low 4.2-5.4 [facility] Comment on above: Performed By: #### L 100.0500, L500.4050 ####[facility] [address] [place], [address] RDW SD 53.6 fl High 35.1-43.9 [facility] Comment on above: Performed By: #### L 100.0500, L500.4050 ####[facility] [address] [place], [address] WBC (Bld) [#/Vol] 8.7 10*3/uL Normal 4.4-11.0 [facility] Comment on above: Performed By: #### L 100.0500, L500.4050 ####[facility] [address] [place], [address] Comprehensive Metabolic Prof [facility] 12-17-2023 Albumin [Mass/Vol] 2.7 g/dL Low 3.2-5.0 [facility] Comment on above: Performed By: #### L 100.0500, L500.4050 ####[facility] [address] [place], [address] Albumin/Globulin [Mass ratio] 0.9 {ratio} Normal 0.9-2.4 [facility] Comment on above: Performed By: #### L 100.0500, L500.4050 ####[facility] [address] [place], [address] ALK P 78 U/L Normal 45-117 [facility] Comment on above: Performed By: #### L 100.0500, L500.4050 ####[facility] [address] [place], [address] ALT [Catalytic activity/Vol] 36 U/L Normal 13-56 [facility] Comment on above: Performed By: #### L 100.0500, L500.4050 ####[facility] [address], [address] AST [Catalytic activity/Vol] 19 U/L Normal 15-37 [facility] Comment on above: Performed By: #### L 100.0500, L500.4050 ####[facility] [address] [place], [address] Bilirubin [Mass/Vol] 0.70 mg/dL Normal 0.20-1.00 [facility] Comment on above: Result Comment: For patients on eltrombopag therapy, use of Dimension [place] TBIL is not recommended. Performed By: #### L 100.0500, L500.4050 ####[facility] [address] [place], [address] BUN/CRE 14.0 RATIO Normal 10-20 [facility] Comment on above: Performed By: #### L 100.0500, L500.4050 ####[facility] [address] [place], [address] CA,Total 8.1 mg/dL Low 8.5-10.1 [facility] Comment on above: Performed By: #### L 100.0500, L500.4050 ####[facility] [address] [place], [address] Chloride [Moles/Vol] 102 mmol/L Normal 98-107 [facility] Comment on above: Performed By: #### L 100.0500, L500.4050 ####[facility] [address] [place], [address] CO2 [Moles/Vol] 23.0 mmol/L Normal 21.0-32.0 [facility] Comment on above: Performed By: #### L 100.0500, L500.4050 ####[facility] [address] [place], [address] Creatinine [Mass/Vol] 6.72 mg/dL High 0.55-1.02 [facility] Comment on above: Result Comment: The validity of the calculated GFR GFRAA in patients over70 years has not been determined. Clinical correlation isessential. Performed By: #### L 100.0500, L500.4050 ####[facility] [address] [place], [address] ECRCL 10.45 ml/min Normal [facility] Comment on above: Performed By: #### L 100.0500, L500.4050 ####[facility] [address] [place], [address] EST GFR - AA 8 mL/min Low >60 [facility] Comment on above: Result Comment: Afri can Irish GFR Calc Performed By: #### L 100.0500, L500.4050 ####[facility] [address] [place], [address] GAP 12 Normal 5-15 [facility] Comment on above: Performed By: #### L 100.0500, L500.4050 ####[facility] [address] [place], [address] GFR/1.73 sq M.predicted among non-blacks MDRD (S/P/Bld) [Vol rate/Area] 7 mL/min/{1.73_m2} Low >60 [facility] Comment on above: Result Comment: Non- GFR Calc Performed By: #### L 100.0500, L500.4050 ####[facility] [address] [place], [address] Globulin (S) [Mass/Vol] 3.1 g/dL Normal 2.2-4.2 [facility] Comment on above: Performed By: #### L 100.0500, L500.4050 ####[facility] [address] [place], [address] Glucose [Mass/Vol] 134 mg/dL High 74-106 [facility] Comment on above: Result Comment: Fast ing Glucose result greater than or equal to 126 mg/dLsuggests DIABETES MELLITUS per A.D.A. criteria. Performed By: #### L 100.0500, L500.4050 ####[facility] [address] [place], [address] Potassium [Moles/Vol] 4.6 mmol/L Normal 3.5-5.1 [facility] Comment on above: Performed By: #### L 100.0500, L500.4050 ####[facility] [address] [place], [address] Sodium [Moles/Vol] 137 mmol/L Normal 136-145 [facility] Comment on above: Performed By: #### L 100.0500, L500.4050 ####[facility] [address] [place], [address] T PROT 5.8 g/dL Low 6.4-8.2 [facility] Comment on above: Performed By: #### L 100.0500, L500.4050 ####[facility] [address] [place], [address] Urea nitrogen [Mass/Vol] 94 mg/dL High 7-18 [facility] Comment on above: Performed By: #### L 100.0500, L500.4050 ####[facility] [address] [place], [address] Bedside Glucoseon 12-16-2023 FINGERSTICK GLU 288 mg/dL High [address] [place] [address] Comment on above: Result Comment: GALA GEMENT OF PATIENT CARE PER NURSING PROTOCOL Performed By: #### L 501.080 ####[facility] [address] [place], [address] FINGERSTICK GLU > 500 Invalid Interpretation Code -[address] [place] [address] Comment on above: Result Comment: GALA GEMENT OF PATIENT CARE PER NURSING PROTOCOL Performed By: #### L 501.080 ####[facility] [address] [place], [address] FINGERSTICK GLU 189 mg/dL High [address] [place] [address] Comment on above: Result Comment: GALA GEMENT OF PATIENT CARE PER NURSING PROTOCOL Performed By: #### L 501.080 ####[facility] [address], [address] FINGERSTICK GLU 169 mg/dL High [address] [place] [address] Comment on above: Result Comment: GALA GEMENT OF PATIENT CARE PER NURSING PROTOCOL Performed By: #### L 501.080 ####[facility] [address], [address] FINGERSTICK GLU 345 mg/dL High [address] [place] [address] Comment on above: Result Comment: GALA GEMENT OF PATIENT CARE PER NURSING PROTOCOL Performed By: #### L 501.080 ####[facility] [address] [place], [address] CBC-Complete Blood Cnt No Di ffon 12-16-2023 Erythrocyte distribution width (RBC) [Ratio] 15.7 % High 11.6-14.6 [facility] Comment on above: Performed By: #### L 500.4050, L100.0500 ####[facility] [address] [place], [address] Hematocrit (Bld) [Volume fraction] 26.7 % Low 37-47 [facility] Comment on above: Performed By: #### L 500.4050, L100.0500 ####[facility] [address] [place], [address] Hemoglobin (Bld) [Mass/Vol] 8.4 g/dL Low 12.0-15.0 [facility] Comment on above: Performed By: #### L 500.4050, L100.0500 ####[facility] [address] [place], [address] MCH (RBC) [Entitic mass] 30.9 pg Normal 27.0-32.0 [facility] Comment on above: Performed By: #### L 500.4050, L100.0500 ####[facility] [address] [place], [address] MCHC (RBC) [Mass/Vol] 31.5 g/dL Low 32-36 [facility] Comment on above: Performed By: #### L 500.4050, L100.0500 ####[facility] [address] [place], [address] MCV (RBC) [Entitic vol] 98.2 fL Normal 81-99 [facility] Comment on above: Performed By: #### L 500.4050, L100.0500 ####[facility] [address] [place], [address] Platelet mean volume (Bld) [Entitic vol] 13.0 fL High 6.2-12.0 [facility] Comment on above: Performed By: #### L 500.4050, L100.0500 ####[facility] [address] [place], [address] Platelets (Bld) [#/Vol] 156 10*3/uL Normal 150-450 [facility] Comment on above: Performed By: #### L 500.4050, L100.0500 ####[facility] [address] [place], [address] RBC (Bld) [#/Vol] 2.72 10*6/uL Low 4.2-5.4 [facility] Comment on above: Performed By: #### L 500.4050, L100.0500 ####[facility] [address] [place], [address] RDW SD 55.3 fl High 35.1-43.9 [facility] Comment on above: Performed By: #### L 500.4050, L100.0500 ####[facility] [address] [place], [address] WBC (Bld) [#/Vol] 9.5 10*3/uL Normal 4.4-11.0 [facility] Comment on above: Performed By: #### L 500.4050, L100.0500 ####[facility] [address] [place], [address] Comprehensive Metabolic Prof [facility] 12-16-2023 Albumin [Mass/Vol] 2.8 g/dL Low 3.2-5.0 [facility] Comment on above: Performed By: #### L 500.4050, L100.0500 ####[facility] [address] [place], [address] Albumin/Globulin [Mass ratio] 0.9 {ratio} Normal 0.9-2.4 [facility] Comment on above: Performed By: #### L 500.4050, L100.0500 ####[facility] [address] [place], [address] ALK P 81 U/L Normal 45-117 [facility] Comment on above: Performed By: #### L 500.4050, L100.0500 ####[facility] [address] [place], [address] ALT [Catalytic activity/Vol] 42 U/L Normal 13-56 [facility] Comment on above: Performed By: #### L 500.4050, L100.0500 ####[facility] [address] [place], [address] AST [Catalytic activity/Vol] 24 U/L Normal 15-37 [facility] Comment on above: Performed By: #### L 500.4050, L100.0500 ####[facility] [address] [place], [address] Bilirubin [Mass/Vol] 0.70 mg/dL Normal 0.20-1.00 [facility] Comment on above: Result Comment: For patients on eltrombopag therapy, use of Dimension [place] TBIL is not recommended. Performed By: #### L 500.4050, L100.0500 ####[facility] [address] [place], [address] BUN/CRE 13.4 RATIO Normal 10-20 [facility] Comment on above: Performed By: #### L 500.4050, L100.0500 ####[facility] [address] [place], [address] CA,Total 8.6 mg/dL Normal 8.5-10.1 [facility] Comment on above: Performed By: #### L 500.4050, L100.0500 ####[facility] [address] [place], [id number] Chloride [Moles/Vol] 102 mmol/L Normal 98-107 [facility] Comment on above: Performed By: #### L 500.4050, L100.0500 ####[facility] [address] [place], [address] CO2 [Moles/Vol] 25.0 mmol/L Normal 21.0-32.0 [facility] Comment on above: Performed By: #### L 500.4050, L100.0500 ####[facility] [address] [place], [address] Creatinine [Mass/Vol] 5.73 mg/dL High 0.55-1.02 [facility] Comment on above: Result Comment: The validity of the calculated GFR GFRAA in patients over70 years has not been determined. Clinical correlation isessential. Performed By: #### L 500.4050, L100.0500 ####[facility] [address] [place], [address] ECRCL 12.26 ml/min Normal [facility] Comment on above: Performed By: #### L 500.4050, L100.0500 ####[facility] [address] [place], [address] EST GFR - AA 10 mL/min Low >60 [facility] Comment on above: Result Comment: Afri can Irish GFR Calc Performed By: #### L 500.4050, L100.0500 ####[facility] [address] [place], [address] GAP 8 Normal 5-15 [facility] Comment on above: Performed By: #### L 500.4050, L100.0500 ####[facility] [address] [place], [address] GFR/1.73 sq M.predicted among non-blacks MDRD (S/P/Bld) [Vol rate/Area] 8 mL/min/{1.73_m2} Low >60 [facility] Comment on above: Result Comment: Non- GFR Calc Performed By: #### L 500.4050, L100.0500 ####[facility] [address] [place], [address] Globulin (S) [Mass/Vol] 3.2 g/dL Normal 2.2-4.2 [facility] Comment on above: Performed By: #### L 500.4050, L100.0500 ####[facility] [address] [place], [address] Glucose [Mass/Vol] 212 mg/dL High 74-106 [facility] Comment on above: Result Comment: Gluc ose result greater than or equal to 200 mg/dLsuggests DIABETES MELLITUS per A.D.A. criteria. Performed By: #### L 500.4050, L100.0500 ####[facility] [address] [place], [address] Potassium [Moles/Vol] 5.3 mmol/L High 3.5-5.1 [facility] Comment on above: Performed By: #### L 500.4050, L100.0500 ####[facility] [address] [place], [address] Sodium [Moles/Vol] 135 mmol/L Low 136-145 [facility] Comment on above: Performed By: #### L 500.4050, L100.0500 ####[facility] [address] [place], [address] T PROT 6.0 g/dL Low 6.4-8.2 [facility] Comment on above: Performed By: #### L 500.4050, L100.0500 ####[facility] [address] [place], [address] Urea nitrogen [Mass/Vol] 77 mg/dL High 7-18 [facility] Comment on above: Performed By: #### L 500.4050, L100.0500 ####[facility] [address] [place], [address] Modified Barium Swallow Stud yon 12-16-2023 Modified Barium Swallow Study Normal [facility] Bedside Glucoseon 12-15-2023 FINGERSTICK GLU 432 mg/dL High 74-106 [facility] Comment on above: Result Comment: GALA GEMENT OF PATIENT CARE PER NURSING PROTOCOL Performed By: #### L 501.080 ####[facility] [address] [place], [address] FINGERSTICK GLU 433 mg/dL High 74-106 [facility] Comment on above: Result Comment: GALA GEMENT OF PATIENT CARE PER NURSING PROTOCOL Performed By: #### L 501.080 ####[facility] [address] [place], [address] FINGERSTICK GLU 236 mg/dL High 74-106 [facility] Comment on above: Result Comment: GALA GEMENT OF PATIENT CARE PER NURSING PROTOCOL Performed By: #### L 501.080 ####[facility] [address] [place], [address] FINGERSTICK GLU 190 mg/dL High 74-106 [facility] Comment on above: Result Comment: GALA GEMENT OF PATIENT CARE PER NURSING PROTOCOL Performed By: #### L 501.080 ####[facility] [address] [place], [address] CBC W/Diff, Automatedon 09-1 Absolute Lymph 0.51 X10 3/uL Low 0.83-4.51 [facility] Comment on above: Performed By: #### L 500.4050, L501.9985, L100.0100 ####[facility] [address] [place], [address] Absolute Neut 10.6 X10 3/uL High 2.0-7.7 [facility] Comment on above: Performed By: #### L 500.4050, L501.9985, L100.0100 ####[facility] [address] [place], [address] Basophils/100 WBC (Bld) 0.1 % Normal 0-1 [facility] Comment on above: Performed By: #### L 500.4050, L501.9985, L100.0100 ####[facility] [address] [place], [address] Eosinophils/100 WBC (Bld) 0.0 % Normal 0-5 [facility] Comment on above: Performed By: #### L 500.4050, L501.9985, L100.0100 ####[facility] [address] [place], [address] Erythrocyte distribution width (RBC) [Ratio] 15.1 % High 11.6-14.6 [facility] Comment on above: Performed By: #### L 500.4050, L501.9985, L100.0100 ####[facility] [address] [place], [address] Hematocrit (Bld) [Volume fraction] 29.6 % Low 37-47 [facility] Comment on above: Performed By: #### L 500.4050, L501.9985, L100.0100 ####[facility] [address] [place], [address] Hemoglobin (Bld) [Mass/Vol] 9.3 g/dL Low 12.0-15.0 [facility] Comment on above: Performed By: #### L 500.4050, L501.9985, L100.0100 ####[facility] [address] [place], [address] IG% 0.900 Normal 0.0-0.9 [facility] Comment on above: Result Comment: IG% - Immature Granulocytes (promyelocytes, myelocytes andmetamyelocytes) > 1% indicates that a LEFT SHIFT is Present. Performed By: #### L 500.4050, L501.9985, L100.0100 ####[facility] [address] [place], [address] Lymphocytes/100 WBC (Bld) 4.4 % Low 19-41 [facility] Comment on above: Performed By: #### L 500.4050, L501.9985, L100.0100 ####[facility] [address] [place], [address] MCH (RBC) [Entitic mass] 30.9 pg Normal 27.0-32.0 [facility] Comment on above: Performed By: #### L 500.4050, L501.9985, L100.0100 ####[facility] [address] [place], [address] MCHC (RBC) [Mass/Vol] 31.4 g/dL Low 32-36 [facility] Comment on above: Performed By: #### L 500.4050, L501.9985, L100.0100 ####[facility] [address] [place], [address] MCV (RBC) [Entitic vol] 98.3 fL Normal 81-99 [facility] Comment on above: Performed By: #### L 500.4050, L501.9985, L100.0100 ####[facility] [address] [place], [address] Monocytes/100 WBC (Bld) 3.7 % Normal 0-10 [facility] Comment on above: Performed By: #### L 500.4050, L501.9985, L100.0100 ####[facility] [address] [place], [address] Neutrophils/100 WBC (Bld) 90.9 % High 47-70 [facility] Comment on above: Performed By: #### L 500.4050, L501.9985, L100.0100 ####[facility] [address] [place], [address] Nucleated RBC (Bld) [#/Vol] 0.2 10*3/uL Normal 0-5 [facility] Comment on above: Performed By: #### L 500.4050, L501.9985, L100.0100 ####[facility] [address] [place], [address] Platelet mean volume (Bld) [Entitic vol] 12.8 fL High 6.2-12.0 [facility] Comment on above: Performed By: #### L 500.4050, L501.9985, L100.0100 ####[facility] [address] [place], [address] Platelets (Bld) [#/Vol] 161 10*3/uL Normal 150-450 [facility] Comment on above: Performed By: #### L 500.4050, L501.9985, L100.0100 ####[facility] [address] [place], [address] RBC (Bld) [#/Vol] 3.01 10*6/uL Low 4.2-5.4 [facility] Comment on above: Performed By: #### L 500.4050, L501.9985, L100.0100 ####[facility] [address] [place], [address] RDW SD 54.2 fl High 35.1-43.9 [facility] Comment on above: Performed By: #### L 500.4050, L501.9985, L100.0100 ####[facility] [address] [place], [address] WBC (Bld) [#/Vol] 11.7 10*3/uL High 4.4-11.0 [facility] Comment on above: Performed By: #### L 500.4050, L501.9985, L100.0100 ####[facility] [address] [place], [address] Comprehensive Metabolic Prof [facility] 12-15-2023 Albumin [Mass/Vol] 2.8 g/dL Low 3.2-5.0 [facility] Comment on above: Performed By: #### L 500.4050, L501.9985, L100.0100 ####[facility] [address] [place], [address] Albumin/Globulin [Mass ratio] 0.9 {ratio} Normal 0.9-2.4 [facility] Comment on above: Performed By: #### L 500.4050, L501.9985, L100.0100 ####[facility] [address] [place], [address] ALK P 83 U/L Normal 45-117 [facility] Comment on above: Performed By: #### L 500.4050, L501.9985, L100.0100 ####[facility] [address] [place], [address] ALT [Catalytic activity/Vol] 52 U/L Normal 13-56 [facility] Comment on above: Performed By: #### L 500.4050, L501.9985, L100.0100 ####[facility] [address] [place], [address] AST [Catalytic activity/Vol] 32 U/L Normal 15-37 [facility] Comment on above: Performed By: #### L 500.4050, L501.9985, L100.0100 ####[facility] [address] [place], [address] Bilirubin [Mass/Vol] 0.90 mg/dL Normal 0.20-1.00 [facility] Comment on above: Result Comment: For patients on eltrombopag therapy, use of Dimension [place] TBIL is not recommended. Performed By: #### L 500.4050, L501.9985, L100.0100 ####[facility] [address], [address] BUN/CRE 11.6 RATIO Normal 10-20 [facility] Comment on above: Performed By: #### L 500.4050, L501.9985, L100.0100 ####[facility] [address] [place], [address] CA,Total 8.7 mg/dL Normal 8.5-10.1 [facility] Comment on above: Performed By: #### L 500.4050, L501.9985, L100.0100 ####[facility] [address] [place], [address] Chloride [Moles/Vol] 102 mmol/L Normal 98-107 [facility] Comment on above: Performed By: #### L 500.4050, L501.9985, L100.0100 ####[facility] [address] [place], [address] CO2 [Moles/Vol] 24.0 mmol/L Normal 21.0-32.0 [facility] Comment on above: Performed By: #### L 500.4050, L501.9985, L100.0100 ####[facility] [address] [place], [address] Creatinine [Mass/Vol] 6.64 mg/dL High 0.55-1.02 [facility] Comment on above: Result Comment: The validity of the calculated GFR GFRAA in patients over70 years has not been determined. Clinical correlation isessential. Performed By: #### L 500.4050, L501.9985, L100.0100 ####[facility] [address], [address] ECRCL 10.35 ml/min Normal [facility] Comment on above: Performed By: #### L 500.4050, L501.9985, L100.0100 ####[facility] [address], [address] EST GFR - AA 8 mL/min Low >60 [facility] Comment on above: Result Comment: Afri can Irish GFR Calc Performed By: #### L 500.4050, L501.9985, L100.0100 ####[facility] [address] [place], [address] GAP 11 Normal 5-15 [facility] Comment on above: Performed By: #### L 500.4050, L501.9985, L100.0100 ####[facility] [address] [place], [address] GFR/1.73 sq M.predicted among non-blacks MDRD (S/P/Bld) [Vol rate/Area] 7 mL/min/{1.73_m2} Low >60 [facility] Comment on above: Result Comment: Non- GFR Calc Performed By: #### L 500.4050, L501.9985, L100.0100 ####[facility] [address] [place], [address] Globulin (S) [Mass/Vol] 3.2 g/dL Normal 2.2-4.2 [facility] Comment on above: Performed By: #### L 500.4050, L501.9985, L100.0100 ####[facility] [address] [place], [address] Glucose [Mass/Vol] 198 mg/dL High 74-106 [facility] Comment on above: Result Comment: Fast ing Glucose result greater than or equal to 126 mg/dLsuggests DIABETES MELLITUS per A.D.A. criteria. Performed By: #### L 500.4050, L501.9985, L100.0100 ####[facility] [address] [place], [address] Potassium [Moles/Vol] 5.5 mmol/L High 3.5-5.1 [facility] Comment on above: Performed By: #### L 500.4050, L501.9985, L100.0100 ####[facility] [address] [place], [address] Sodium [Moles/Vol] 137 mmol/L Normal 136-145 [facility] Comment on above: Performed By: #### L 500.4050, L501.9985, L100.0100 ####[facility] [address] [place], [address] T PROT 6.0 g/dL Low 6.4-8.2 [facility] Comment on above: Performed By: #### L 500.4050, L501.9985, L100.0100 ####[facility] [address] [place], [address] Urea nitrogen [Mass/Vol] 77 mg/dL High 7-18 [facility] Comment on above: Performed By: #### L 500.4050, L501.9985, L100.0100 ####[facility] [address] [place], [address] Hemoglobin A1con 12-15-2023 HbA1c (Bld) [Mass fraction] 7.1 % High 3.8-5.6 [facility] Comment on above: Result Comment: Norm al < 5.7 % Prediabetic 5.7 - 6.4 % Diabetic >or= 6.5 % Please note range changes. Performed By: #### L 500.4050, L501.9985, L100.0100 ####[facility] [address] [place], [address] Legionella Antigen Urineon 0 12-15-2023 LEGU Normal [facility] Comment on above: Performed By: #### M 300.4500, M300.4600 ####[facility] [address] [place], [address] M8200.1000on 12-15-2023 M8200.1000 Negative Normal [facility] Comment on above: Performed By: #### M 8200.1000 ####[facility] [address] [place], [address] Strep pneumoniae Antig(UR,CS F)on 12-15-2023 STPAG Normal [facility] Comment on above: Performed By: #### M 300.4500, M300.4600 ####[facility] [address] [place], [address] Vancomycin, Random Levelon 0 12-15-2023 VANCO, RANDOM 25.7 ug/mL High 0.0-15.0 [facility] Comment on above: Result Comment: VANC OMYCIN STANDARD DRUG THERAPY: CRITICAL VALUE IS > 15.0 mg/LVANCOMYCIN HIGH INTENSITY THERAPY: CRITICAL VALUE IS > 20.0 mg/LPLEASE CONTACT PHARMACY SERVICES (#7162) FOR INTERPRETATIONOF RESULTS. THIS RESULT DOES NOT REPRESENT A PEAK OR TROUGHLEVEL FOR THIS DRUG. Performed By: #### L 501.8850 ####[facility] [address] [place], [address] Alkaline Phosphataseon 12-13 ALK P 107 U/L Normal 45-117 [facility] Comment on above: Performed By: #### L 501.4305 ####[facility] [address] [place], [address] Basic Metabolic Profile (BMP )on 12-14-2023 BUN/CRE 10.2 RATIO Normal 10-20 [facility] Comment on above: Order Comment: 'TROP ' Serial specimen #1, #2 or #3: 1 Performed By: #### L 501.4020, L100.0100, L501.2450, L500.2500, L500.3400 ####[facility] [address] [place], [address] CA,Total 8.7 mg/dL Normal 8.5-10.1 [facility] Comment on above: Order Comment: 'TROP ' Serial specimen #1, #2 or #3: 1 Performed By: #### L 501.4020, L100.0100, L501.2450, L500.2500, L500.3400 ####[facility] [address] [place], [address] Chloride [Moles/Vol] 101 mmol/L Normal 98-107 [facility] Comment on above: Order Comment: 'TROP ' Serial specimen #1, #2 or #3: 1 Performed By: #### L 501.4020, L100.0100, L501.2450, L500.2500, L500.3400 ####[facility] [address] [place], [address] CO2 [Moles/Vol] 27.0 mmol/L Normal 21.0-32.0 [facility] Comment on above: Order Comment: 'TROP ' Serial specimen #1, #2 or #3: 1 Performed By: #### L 501.4020, L100.0100, L501.2450, L500.2500, L500.3400 ####[facility] [address] [place], [address] Creatinine [Mass/Vol] 5.67 mg/dL High 0.55-1.02 [facility] Comment on above: Order Comment: 'TROP ' Serial specimen #1, #2 or #3: 1 Result Comment: The validity of the calculated GFR GFRAA in patients over70 years has not been determined. Clinical correlation isessential. Performed By: #### L 501.4020, L100.0100, L501.2450, L500.2500, L500.3400 ####[facility] [address] [place], [address] ECRCL 12.79 ml/min Normal [facility] Comment on above: Order Comment: 'TROP ' Serial specimen #1, #2 or #3: 1 Performed By: #### L 501.4020, L100.0100, L501.2450, L500.2500, L500.3400 ####[facility] [address] [place], [address] EST GFR - AA 10 mL/min Low >60 [facility] Comment on above: Order Comment: 'TROP ' Serial specimen #1, #2 or #3: 1 Result Comment: Afri can Irish GFR Calc Performed By: #### L 501.4020, L100.0100, L501.2450, L500.2500, L500.3400 ####[facility] [address] [place], [address] GAP 8 Normal 5-15 [facility] Comment on above: Order Comment: 'TROP ' Serial specimen #1, #2 or #3: 1 Performed By: #### L 501.4020, L100.0100, L501.2450, L500.2500, L500.3400 ####[facility] [address] [place], [address] GFR/1.73 sq M.predicted among non-blacks MDRD (S/P/Bld) [Vol rate/Area] 8 mL/min/{1.73_m2} Low >60 [facility] Comment on above: Order Comment: 'TROP ' Serial specimen #1, #2 or #3: 1 Result Comment: Non- GFR Calc Performed By: #### L 501.4020, L100.0100, L501.2450, L500.2500, L500.3400 ####[facility] [address] [place], [address] Glucose [Mass/Vol] 285 mg/dL High 74-106 [facility] Comment on above: Order Comment: 'TROP ' Serial specimen #1, #2 or #3: 1 Result Comment: Gluc ose result greater than or equal to 200 mg/dLsuggests DIABETES MELLITUS per A.D.A. criteria. Performed By: #### L 501.4020, L100.0100, L501.2450, L500.2500, L500.3400 ####[facility] [address] [place], [address] Potassium [Moles/Vol] 5.2 mmol/L High 3.5-5.1 [facility] Comment on above: Order Comment: 'TROP ' Serial specimen #1, #2 or #3: 1 Performed By: #### L 501.4020, L100.0100, L501.2450, L500.2500, L500.3400 ####[facility] [address] [place], [address] Sodium [Moles/Vol] 136 mmol/L Normal 136-145 [facility] Comment on above: Order Comment: 'TROP ' Serial specimen #1, #2 or #3: 1 Performed By: #### L 501.4020, L100.0100, L501.2450, L500.2500, L500.3400 ####[facility] [address] [place], [address] Urea nitrogen [Mass/Vol] 58 mg/dL High 7-18 [facility] Comment on above: Order Comment: 'TROP ' Serial specimen #1, #2 or #3: 1 Performed By: #### L 501.4020, L100.0100, L501.2450, L500.2500, L500.3400 ####[facility] [address] [place], [address] Bedside Glucoseon 12-14-2023 FINGERSTICK GLU 139 mg/dL High 74-106 [facility] Comment on above: Result Comment: GALA GEMENT OF PATIENT CARE PER NURSING PROTOCOL Performed By: #### L 501.080 ####[facility] [address] [place], [address] FINGERSTICK GLU 231 mg/dL High 74-106 [facility] Comment on above: Result Comment: GALA GEMENT OF PATIENT CARE PER NURSING PROTOCOL Performed By: #### L 501.080 ####[facility] [address] [place], [address] FINGERSTICK GLU 317 mg/dL High 74-106 [facility] Comment on above: Result Comment: GALA DENNISON OF PATIENT CARE PER NURSING PROTOCOL Performed By: #### L 501.080 ####[facility] [address] [place], [place], [address] Blood Gases by [facility] 024 JACKIE TEST Positive Normal [facility] Comment on above: Performed By: #### L 9000.0800 ####[facility] [address] [place], [address] Base excess Calc (Bld) [Moles/Vol] 1 mmol/L Normal -2 to +2 [facility] Comment on above: Performed By: #### L 9000.0800 ####[facility] [address] [place], [address] Blood Gas Type ART Normal [facility] Comment on above: Performed By: #### L 9000.0800 ####[facility] [address] [place], [address] CO2 [Moles/Vol] 27 mmol/L Normal [facility] Comment on above: Performed By: #### L 9000.0800 ####[facility] [address] [place], [address] FI02 4.0 Normal [facility] Comment on above: Performed By: #### L 9000.0800 ####[facility] [address] [place], [address] HCO3 (Bld) [Moles/Vol] 26.0 mmol/L Normal 22-26 [facility] Comment on above: Performed By: #### L 9000.0800 ####[facility] [address] [place], [address] Mode Not entered Normal [facility] Comment on above: Performed By: #### L 9000.0800 ####[facility] [address] [place], [address] O2 Delivery Dev Cannula Normal [facility] Comment on above: Performed By: #### L 9000.0800 ####[facility] [address] [place], [address] pCO2 42.3 mmHg Normal 35-45 [facility] Comment on above: Performed By: #### L 0.0800 ####[facility] [address] [place], [address] pH (Bld) 7.40 [pH] Normal 7.35-7.45 [facility] Comment on above: Performed By: #### L 9000.0800 ####[facility] [address] [place], [address] PO2 61 mmHG Low 75-100 [facility] Comment on above: Performed By: #### L 9000.0800 ####[facility] [address] [place], [address] SITE L Radial Normal [facility] Comment on above: Performed By: #### L 0.0800 ####[facility] [address] [place], [address] SO2 91 Low 95-99 [facility] Comment on above: Performed By: #### L 9000.0800 ####[facility] [address] [place], [address] CBC W/Diff, Automatedon - Absolute Lymph 0.64 X10 3/uL Low 0.83-4.51 [facility] Comment on above: Performed By: #### L 501.4020, L100.0100, L501.2450, L500.2500, L500.3400 ####[facility] [address] [place], [address] Absolute Neut 9.6 X10 3/uL High 2.0-7.7 [facility] Comment on above: Performed By: #### L 501.4020, L100.0100, L501.2450, L500.2500, L500.3400 ####[facility] [address] [place], [address] Basophils/100 WBC (Bld) 0.4 % Normal 0-1 [facility] Comment on above: Performed By: #### L 501.4020, L100.0100, L501.2450, L500.2500, L500.3400 ####[facility] [address] [place], [address] Eosinophils/100 WBC (Bld) 1.4 % Normal 0-5 [facility] Comment on above: Performed By: #### L 501.4020, L100.0100, L501.2450, L500.2500, L500.3400 ####[facility] [address] [place], [address] Erythrocyte distribution width (RBC) [Ratio] 15.1 % High 11.6-14.6 [facility] Comment on above: Performed By: #### L 501.4020, L100.0100, L501.2450, L500.2500, L500.3400 ####[facility] [address] [place], [address] Hematocrit (Bld) [Volume fraction] 32.5 % Low 37-47 [facility] Comment on above: Performed By: #### L 501.4020, L100.0100, L501.2450, L500.2500, L500.3400 ####[facility] [address] [place], [address] Hemoglobin (Bld) [Mass/Vol] 10.0 g/dL Low 12.0-15.0 [facility] Comment on above: Performed By: #### L 501.4020, L100.0100, L501.2450, L500.2500, L500.3400 ####[facility] [address] [place], [address] IG% 1.300 High 0.0-0.9 [facility] Comment on above: Result Comment: IG% - Immature Granulocytes (promyelocytes, myelocytes andmetamyelocytes) > 1% indicates that a LEFT SHIFT is Present. Performed By: #### L 501.4020, L100.0100, L501.2450, L500.2500, L500.3400 ####[facility] [address] [place], [address] Lymphocytes/100 WBC (Bld) 5.8 % Low 19-41 [facility] Comment on above: Performed By: #### L 501.4020, L100.0100, L501.2450, L500.2500, L500.3400 ####[facility] [address] [place], [address] MCH (RBC) [Entitic mass] 30.4 pg Normal 27.0-32.0 [facility] Comment on above: Performed By: #### L 501.4020, L100.0100, L501.2450, L500.2500, L500.3400 ####[facility] [address] [place], [address] MCHC (RBC) [Mass/Vol] 30.8 g/dL Low 32-36 [facility] Comment on above: Performed By: #### L 501.4020, L100.0100, L501.2450, L500.2500, L500.3400 ####[facility] [address] [place], [address] MCV (RBC) [Entitic vol] 98.8 fL Normal 81-99 [facility] Comment on above: Performed By: #### L 501.4020, L100.0100, L501.2450, L500.2500, L500.3400 ####[facility] [address] [place], [address] Monocytes/100 WBC (Bld) 4.7 % Normal 0-10 [facility] Comment on above: Performed By: #### L 501.4020, L100.0100, L501.2450, L500.2500, L500.3400 ####[facility] [address] [place], [address] Neutrophils/100 WBC (Bld) 86.4 % High 47-70 [facility] Comment on above: Performed By: #### L 501.4020, L100.0100, L501.2450, L500.2500, L500.3400 ####[facility] [address] [place], [address] Nucleated RBC (Bld) [#/Vol] 0 10*3/uL Normal 0-5 [facility] Comment on above: Performed By: #### L 501.4020, L100.0100, L501.2450, L500.2500, L500.3400 ####[facility] [address] [place], [address] Platelet mean volume (Bld) [Entitic vol] 12.7 fL High 6.2-12.0 [facility] Comment on above: Performed By: #### L 501.4020, L100.0100, L501.2450, L500.2500, L500.3400 ####[facility] [address] [place], [address] Platelets (Bld) [#/Vol] 146 10*3/uL Low 150-450 [facility] Comment on above: Performed By: #### L 501.4020, L100.0100, L501.2450, L500.2500, L500.3400 ####[facility] [address] [place], [address] RBC (Bld) [#/Vol] 3.29 10*6/uL Low 4.2-5.4 [facility] Comment on above: Performed By: #### L 501.4020, L100.0100, L501.2450, L500.2500, L500.3400 ####[facility] [address] [place], [address] RDW SD 54.2 fl High 35.1-43.9 [facility] Comment on above: Performed By: #### L 501.4020, L100.0100, L501.2450, L500.2500, L500.3400 ####[facility] [address] [place], [address] WBC (Bld) [#/Vol] 11.1 10*3/uL High 4.4-11.0 [facility] Comment on above: Performed By: #### L 501.4020, L100.0100, L501.2450, L500.2500, L500.3400 ####[facility] [address] [place], [address] Chest 1 View (Portable)on Chest 1 View (Portable) Normal [facility] Consultation - Intensiviston 12-14-2023 Consultation - Air Launch Weapons Technician Normal [facility] Consultation - Nephrologyon 12-14-2023 Consultation - Nephrology Normal [facility] Emergency Department Summary on 12-14-2023 Emergency Department Summary Normal [facility] H AND P Exam - Hospitaliston 12-14-2023 H&P Exam - Hospitalist Normal [facility] L501.4020on 12-14-2023 TROPONIN-I HS 40 pg/mL Normal 3.0-54.0 [facility] Comment on above: Order Comment: 'TROP ' Serial specimen #1, #2 or #3: 1 Result Comment: Kaity olmedo Note: New Test Units and Gender Specific Reference Ranges. For more information see Policy Stat Procedure [place] High Sensitivity Troponin (TNIH) and attachments. Performed By: #### L 501.4020, L100.0100, L501.2450, L500.2500, L500.3400 ####[facility] [address] [place], [address] Lactic Acidon 12-14-2023 Lactate [Moles/Vol] 0.8 mmol/L Normal 0.4-1.9 [place] Comment on above: Order Comment: Y Performed By: #### L 503.6005, M200.1000 ####[facility] [address] [place], [address] Lipaseon 12-14-2023 Lipase [Catalytic activity/Vol] 48 U/L Normal 13-75 [facility] Comment on above: Order Comment: 'TROP ' Serial specimen #1, #2 or #3: 1 Result Comment: Kaity olmedo note:LIPASE revised reference range effective 22.New Lipase methodology. Expected to produce lower valuesthan the previous assay method.NEW Reference Range: 13 - 75 U/L Performed By: #### L 501.4020, L100.0100, L501.2450, L500.2500, L500.3400 ####[facility] [address] [place], [address] Liver Profileon 12-14-2023 Albumin [Mass/Vol] 3.3 g/dL Normal 3.2-5.0 [facility] Comment on above: Order Comment: 'TROP ' Serial specimen #1, #2 or #3: 1 Performed By: #### L 501.4020, L100.0100, L501.2450, L500.2500, L500.3400 ####[facility] [address] [place], [address] ALK P 105 U/L Normal 45-117 [facility] Comment on above: Order Comment: 'TROP ' Serial specimen #1, #2 or #3: 1 Performed By: #### L 501.4020, L100.0100, L501.2450, L500.2500, L500.3400 ####[facility] [address] [place], [address] ALT [Catalytic activity/Vol] 75 U/L High 13-56 [facility] Comment on above: Order Comment: 'TROP ' Serial specimen #1, #2 or #3: 1 Performed By: #### L 501.4020, L100.0100, L501.2450, L500.2500, L500.3400 ####[facility] [address] [place], [address] AST [Catalytic activity/Vol] 54 U/L High 15-37 [facility] Comment on above: Order Comment: 'TROP ' Serial specimen #1, #2 or #3: 1 Performed By: #### L 501.4020, L100.0100, L501.2450, L500.2500, L500.3400 ####[facility] [address] [place], [address] Bilirubin [Mass/Vol] 0.80 mg/dL Normal 0.20-1.00 [facility] Comment on above: Order Comment: 'TROP ' Serial specimen #1, #2 or #3: 1 Result Comment: For patients on eltrombopag therapy, use of Dimension [place] TBIL is not recommended. Performed By: #### L 501.4020, L100.0100, L501.2450, L500.2500, L500.3400 ####[facility] [address] [place], [address] Bilirubin.direct [Mass/Vol] 0.24 mg/dL Normal 0.00-0.30 [facility] Comment on above: Order Comment: 'TROP ' Serial specimen #1, #2 or #3: 1 Performed By: #### L 501.4020, L100.0100, L501.2450, L500.2500, L500.3400 ####[facility] [address] [place], [address] Globulin (S) [Mass/Vol] 3.6 g/dL Normal 2.2-4.2 [facility] Comment on above: Order Comment: 'TROP ' Serial specimen #1, #2 or #3: 1 Performed By: #### L 501.4020, L100.0100, L501.2450, L500.2500, L500.3400 ####[facility] [address] [place], [address] T PROT 6.9 g/dL Normal 6.4-8.2 [facility] Comment on above: Order Comment: 'TROP ' Serial specimen #1, #2 or #3: 1 Performed By: #### L 501.4020, L100.0100, L501.2450, L500.2500, L500.3400 ####[facility] [address] [place], [address] M100.678on 12-14-2023 M100.678 Normal [facility] Comment on above: Performed By: #### M 100.678 ####[facility] [address] [place], [address] Magnesiumon 12-14-2023 Magnesium [Mass/Vol] 2.2 mg/dL Normal 1.6-2.6 [facility] Comment on above: Performed By: #### L 501.5200 ####[facility] [address] [place], [address] Procedure Reporton Procedure Report Normal [facility] CBC W/Diff, Automatedon 10-29 Absolute Neut Normal 2.0-7.7 [facility] Comment on above: Result Comment: Canc elled via OM: Order cancelled - Patient discharged Performed By: #### L 500.4050, L100.0100 ####[facility] [address] [place], [address] HCT Normal 37-47 [facility] Comment on above: Result Comment: Canc elled via OM: Order cancelled - Patient discharged Performed By: #### L 500.4050, L100.0100 ####[facility] [address] [place], [address] HGB Normal 12.0-15.0 [facility] Comment on above: Result Comment: Canc elled via OM: Order cancelled - Patient discharged Performed By: #### L 500.4050, L100.0100 ####[facility] [address], [address] MCH Normal 27.0-32.0 [facility] Comment on above: Result Comment: Canc elled via OM: Order cancelled - Patient discharged Performed By: #### L 500.4050, L100.0100 ####[facility] [address], [address] MCHC Normal 32-36 [facility] Comment on above: Result Comment: Canc elled via OM: Order cancelled - Patient discharged Performed By: #### L 500.4050, L100.0100 ####[facility] [address] [place], [address] MCV Normal 81-99 [facility] Comment on above: Result Comment: Canc elled via OM: Order cancelled - Patient discharged Performed By: #### L 500.4050, L100.0100 ####[facility] [address] [place], [address] NEUT% Normal 47-70 [facility] Comment on above: Result Comment: Canc elled via OM: Order cancelled - Patient discharged Performed By: #### L 500.4050, L100.0100 ####[facility] [address] [place], [address] PLT Normal 150-450 [facility] Comment on above: Result Comment: Canc elled via OM: Order cancelled - Patient discharged Performed By: #### L 500.4050, L100.0100 ####[facility] [address] [place], [address] RBC Normal 4.2-5.4 [facility] Comment on above: Result Comment: Canc elled via OM: Order cancelled - Patient discharged Performed By: #### L 500.4050, L100.0100 ####[facility] [address], [address] RDW CV Normal 11.6-14.6 [facility] Comment on above: Result Comment: Canc elled via OM: Order cancelled - Patient discharged Performed By: #### L 500.4050, L100.0100 ####[facility] [address] [place], [address] RDW SD Normal 35.1-43.9 [facility] Comment on above: Result Comment: Canc elled via OM: Order cancelled - Patient discharged Performed By: #### L 500.4050, L100.0100 ####[facility] [address] [place], [address] WBC Normal 4.4-11.0 [facility] Comment on above: Result Comment: Canc elled via OM: Order cancelled - Patient discharged Performed By: #### L 500.4050, L100.0100 ####[facility] [address] [place], [address] Comprehensive Metabolic Prof ilon 11-24-2023 ALB Normal 3.2-5.0 [facility] Comment on above: Result Comment: Canc elled via OM: Order cancelled - Patient discharged Performed By: #### L 500.4050, L100.0100 ####[facility] [address] [place], [address] ALK P Normal 45-117 [facility] Comment on above: Result Comment: Canc elled via OM: Order cancelled - Patient discharged Performed By: #### L 500.4050, L100.0100 ####[facility] [address] [place], [address] ALT Normal 13-56 [facility] Comment on above: Result Comment: Canc elled via OM: Order cancelled - Patient discharged Performed By: #### L 500.4050, L100.0100 ####[facility] [address] [place], [address] AST Normal 15-37 [facility] Comment on above: Result Comment: Canc elled via OM: Order cancelled - Patient discharged Performed By: #### L 500.4050, L100.0100 ####[facility] [address] [place], [address] BUN Normal 7-18 [facility] Comment on above: Result Comment: Canc elled via OM: Order cancelled - Patient discharged Performed By: #### L 500.4050, L100.0100 ####[facility] [address] [place], [address] BUN/CRE Normal 10-20 [facility] Comment on above: Result Comment: Canc elled via OM: Order cancelled - Patient discharged Performed By: #### L 500.4050, L100.0100 ####[facility] [address] [place], [address] CA,Total Normal 8.5-10.1 [facility] Comment on above: Result Comment: Canc elled via OM: Order cancelled - Patient discharged Performed By: #### L 500.4050, L100.0100 ####[facility] [address] [place], [address] CL Normal 98-107 [facility] Comment on above: Result Comment: Canc elled via OM: Order cancelled - Patient discharged Performed By: #### L 500.4050, L100.0100 ####[facility] [address], [address] CO2 Normal 21.0-32.0 [facility] Comment on above: Result Comment: Canc elled via OM: Order cancelled - Patient discharged Performed By: #### L 500.4050, L100.0100 ####[facility] [address] [place], [address] CREAT,SERUM Normal 0.55-1.02 [facility] Comment on above: Result Comment: Canc elled via OM: Order cancelled - Patient discharged Performed By: #### L 500.4050, L100.0100 ####[facility] [address], [address] EST GFR Normal >60 [facility] Comment on above: Result Comment: Canc elled via OM: Order cancelled - Patient discharged Performed By: #### L 500.4050, L100.0100 ####[facility] [address], [address] EST GFR - AA Normal >60 [facility] Comment on above: Result Comment: Canc elled via OM: Order cancelled - Patient discharged Performed By: #### L 500.4050, L100.0100 ####[facility] [address] [place], [address] GAP Normal 5-15 [facility] Comment on above: Result Comment: Canc elled via OM: Order cancelled - Patient discharged Performed By: #### L 500.4050, L100.0100 ####[facility] [address] [place], [address] GLU Normal 74-106 [facility] Comment on above: Result Comment: Canc elled via OM: Order cancelled - Patient discharged Performed By: #### L 500.4050, L100.0100 ####[facility] [address] [place], [address] Potassium Normal 3.5-5.1 [facility] Comment on above: Result Comment: Canc elled via OM: Order cancelled - Patient discharged Performed By: #### L 500.4050, L100.0100 ####[facility] [address] [place], [address] T BILI Normal 0.20-1.00 [facility] Comment on above: Result Comment: Canc elled via OM: Order cancelled - Patient discharged Performed By: #### L 500.4050, L100.0100 ####[facility] [address] [place], [address] T PROT Normal 6.4-8.2 [facility] Comment on above: Result Comment: Canc elled via OM: Order cancelled - Patient discharged Performed By: #### L 500.4050, L100.0100 ####[facility] [address] [place], [address] Comprehensive Metabolic Profil Normal 136-145 [facility] Comment on above: Result Comment: Canc elled via OM: Order cancelled - Patient discharged Performed By: #### L 500.4050, L100.0100 ####[facility] [address] [place], [address] Culture, Blood (WB)on 2023 CUB Blood cultures x2, f rom two different sites No growth in 5 days. Normal [facility] Comment on above: Performed By: #### L 503.6005, L300.3900, L501.5200, M200.1000, L100.0100, L500.4050, L501.3620, L501.4020, L300.4310 ####[facility] [facility] [address] [place], [address] CBC W/Diff, Automatedon 08-2 Absolute Neut Normal 2.0-7.7 [facility] Comment on above: Result Comment: Canc elled via OM: Order cancelled - Patient discharged Performed By: #### L 100.0100, L500.4050 ####[facility] [address] [place], [address] HCT Normal 37-47 [facility] Comment on above: Result Comment: Canc elled via OM: Order cancelled - Patient discharged Performed By: #### L 100.0100, L500.4050 ####[facility] [address] [place], [address] HGB Normal 12.0-15.0 [facility] Comment on above: Result Comment: Canc elled via OM: Order cancelled - Patient discharged Performed By: #### L 100.0100, L500.4050 ####[facility] [address] [place], [address] MCH Normal 27.0-32.0 [facility] Comment on above: Result Comment: Canc elled via OM: Order cancelled - Patient discharged Performed By: #### L 100.0100, L500.4050 ####[facility] [address] [place], [address] MCHC Normal 32-36 [facility] Comment on above: Result Comment: Canc elled via OM: Order cancelled - Patient discharged Performed By: #### L 100.0100, L500.4050 ####[facility] [address] [place], [address] MCV Normal 81-99 [facility] Comment on above: Result Comment: Canc elled via OM: Order cancelled - Patient discharged Performed By: #### L 100.0100, L500.4050 ####[facility] [address] [place], [address] NEUT% Normal 47-70 [facility] Comment on above: Result Comment: Canc elled via OM: Order cancelled - Patient discharged Performed By: #### L 100.0100, L500.4050 ####[facility] [address] [place], [address] PLT Normal 150-450 [facility] Comment on above: Result Comment: Canc elled via OM: Order cancelled - Patient discharged Performed By: #### L 100.0100, L500.4050 ####[facility] [address] [place], [address] RBC Normal 4.2-5.4 [facility] Comment on above: Result Comment: Canc elled via OM: Order cancelled - Patient discharged Performed By: #### L 100.0100, L500.4050 ####[facility] [address] [place], [address] RDW CV Normal 11.6-14.6 [facility] Comment on above: Result Comment: Canc elled via OM: Order cancelled - Patient discharged Performed By: #### L 100.0100, L500.4050 ####[facility] [address] [place], [address] RDW SD Normal 35.1-43.9 [facility] Comment on above: Result Comment: Canc elled via OM: Order cancelled - Patient discharged Performed By: #### L 100.0100, L500.4050 ####[facility] [address] [place], [address] WBC Normal 4.4-11.0 [facility] Comment on above: Result Comment: Canc elled via OM: Order cancelled - Patient discharged Performed By: #### L 100.0100, L500.4050 ####[facility] [address] [place], [address] Comprehensive Metabolic Prof ilon 11-23-2023 ALB Normal 3.2-5.0 [facility] Comment on above: Result Comment: Canc elled via OM: Order cancelled - Patient discharged Performed By: #### L 100.0100, L500.4050 ####[facility] [address] [place], [address] ALK P Normal 45-117 [facility] Comment on above: Result Comment: Canc elled via OM: Order cancelled - Patient discharged Performed By: #### L 100.0100, L500.4050 ####[facility] [address] [place], [address] ALT Normal 13-56 [facility] Comment on above: Result Comment: Canc elled via OM: Order cancelled - Patient discharged Performed By: #### L 100.0100, L500.4050 ####[facility] [address] [place], [address] AST Normal 15-37 [facility] Comment on above: Result Comment: Canc elled via OM: Order cancelled - Patient discharged Performed By: #### L 100.0100, L500.4050 ####[facility] [address] [place], [address] BUN Normal 7-18 [facility] Comment on above: Result Comment: Canc elled via OM: Order cancelled - Patient discharged Performed By: #### L 100.0100, L500.4050 ####[facility] [address] [place], [address] BUN/CRE Normal 10-20 [facility] Comment on above: Result Comment: Canc elled via OM: Order cancelled - Patient discharged Performed By: #### L 100.0100, L500.4050 ####[facility] [address] [place], [address] CA,Total Normal 8.5-10.1 [facility] Comment on above: Result Comment: Canc elled via OM: Order cancelled - Patient discharged Performed By: #### L 100.0100, L500.4050 ####[facility] [address], [address] CL Normal 98-107 [facility] Comment on above: Result Comment: Canc elled via OM: Order cancelled - Patient discharged Performed By: #### L 100.0100, L500.4050 ####[facility] [address] [place], [address] CO2 Normal 21.0-32.0 [facility] Comment on above: Result Comment: Canc elled via OM: Order cancelled - Patient discharged Performed By: #### L 100.0100, L500.4050 ####[facility] [address] [place], [address] CREAT,SERUM Normal 0.55-1.02 [facility] Comment on above: Result Comment: Canc elled via OM: Order cancelled - Patient discharged Performed By: #### L 100.0100, L500.4050 ####[facility] [address] [place], [address] EST GFR Normal >60 [facility] Comment on above: Result Comment: Canc elled via OM: Order cancelled - Patient discharged Performed By: #### L 100.0100, L500.4050 ####[facility] [address] [place], [address] EST GFR - AA Normal >60 [facility] Comment on above: Result Comment: Canc elled via OM: Order cancelled - Patient discharged Performed By: #### L 100.0100, L500.4050 ####[facility] [address] [place], [address] GAP Normal 5-15 [facility] Comment on above: Result Comment: Canc elled via OM: Order cancelled - Patient discharged Performed By: #### L 100.0100, L500.4050 ####[facility] [address] [place], [address] GLU Normal 74-106 [facility] Comment on above: Result Comment: Canc elled via OM: Order cancelled - Patient discharged Performed By: #### L 100.0100, L500.4050 ####[facility] [address] [place], [address] Potassium Normal 3.5-5.1 [facility] Comment on above: Result Comment: Canc elled via OM: Order cancelled - Patient discharged Performed By: #### L 100.0100, L500.4050 ####[facility] [address] [place], [address] T BILI Normal 0.20-1.00 [facility] Comment on above: Result Comment: Canc elled via OM: Order cancelled - Patient discharged Performed By: #### L 100.0100, L500.4050 ####[facility] [address] [place], [address] T PROT Normal 6.4-8.2 [facility] Comment on above: Result Comment: Canc elled via OM: Order cancelled - Patient discharged Performed By: #### L 100.0100, L500.4050 ####[facility] [address] [place], [address] Comprehensive Metabolic Profil Normal 136-145 [facility] Comment on above: Result Comment: Canc elled via OM: Order cancelled - Patient discharged Performed By: #### L 100.0100, L500.4050 ####[facility] [address] [place], [address] CBC W/Diff, Automatedon 08-2 Absolute Neut Normal 2.0-7.7 [facility] Comment on above: Result Comment: Canc elled via OM: Order cancelled - Patient discharged Performed By: #### L 100.0100, L500.4050 ####[facility] [address] [place], [address] HCT Normal 37-47 [facility] Comment on above: Result Comment: Canc elled via OM: Order cancelled - Patient discharged Performed By: #### L 100.0100, L500.4050 ####[facility] [address] [place], [address] HGB Normal 12.0-15.0 [facility] Comment on above: Result Comment: Canc elled via OM: Order cancelled - Patient discharged Performed By: #### L 100.0100, L500.4050 ####[facility] [address] [place], [address] MCH Normal 27.0-32.0 [facility] Comment on above: Result Comment: Canc elled via OM: Order cancelled - Patient discharged Performed By: #### L 100.0100, L500.4050 ####[facility] [address] [place], [address] MCHC Normal 32-36 [facility] Comment on above: Result Comment: Canc elled via OM: Order cancelled - Patient discharged Performed By: #### L 100.0100, L500.4050 ####[facility] [address] [place], [address] MCV Normal 81-99 [facility] Comment on above: Result Comment: Canc elled via OM: Order cancelled - Patient discharged Performed By: #### L 100.0100, L500.4050 ####[facility] [address] [place], [address] NEUT% Normal 47-70 [facility] Comment on above: Result Comment: Canc elled via OM: Order cancelled - Patient discharged Performed By: #### L 100.0100, L500.4050 ####[facility] [address], [address] PLT Normal 150-450 [facility] Comment on above: Result Comment: Canc elled via OM: Order cancelled - Patient discharged Performed By: #### L 100.0100, L500.4050 ####[facility] [address] [place], [address] RBC Normal 4.2-5.4 [facility] Comment on above: Result Comment: Canc elled via OM: Order cancelled - Patient discharged Performed By: #### L 100.0100, L500.4050 ####[facility] [address] [place], [address] RDW CV Normal 11.6-14.6 [facility] Comment on above: Result Comment: Canc elled via OM: Order cancelled - Patient discharged Performed By: #### L 100.0100, L500.4050 ####[facility] [address] [place], [address] RDW SD Normal 35.1-43.9 [facility] Comment on above: Result Comment: Canc elled via OM: Order cancelled - Patient discharged Performed By: #### L 100.0100, L500.4050 ####[facility] [address] [place], [address] WBC Normal 4.4-11.0 [facility] Comment on above: Result Comment: Canc elled via OM: Order cancelled - Patient discharged Performed By: #### L 100.0100, L500.4050 ####[facility] [address] [place], [address] Comprehensive Metabolic Prof ilon 11-22-2023 ALB Normal 3.2-5.0 [facility] Comment on above: Result Comment: Canc elled via OM: Order cancelled - Patient discharged Performed By: #### L 100.0100, L500.4050 ####[facility] [address] [place], [address] ALK P Normal 45-117 [facility] Comment on above: Result Comment: Canc elled via OM: Order cancelled - Patient discharged Performed By: #### L 100.0100, L500.4050 ####[facility] [address] [place], [address] ALT Normal 13-56 [facility] Comment on above: Result Comment: Canc elled via OM: Order cancelled - Patient discharged Performed By: #### L 100.0100, L500.4050 ####[facility] [address] [place], [address] AST Normal 15-37 [facility] Comment on above: Result Comment: Canc elled via OM: Order cancelled - Patient discharged Performed By: #### L 100.0100, L500.4050 ####[facility] [address] [place], [address] BUN Normal 7-18 [facility] Comment on above: Result Comment: Canc elled via OM: Order cancelled - Patient discharged Performed By: #### L 100.0100, L500.4050 ####[facility] [address] [place], [address] BUN/CRE Normal 10-20 [facility] Comment on above: Result Comment: Canc elled via OM: Order cancelled - Patient discharged Performed By: #### L 100.0100, L500.4050 ####[facility] [address] [place], [address] CA,Total Normal 8.5-10.1 [facility] Comment on above: Result Comment: Canc elled via OM: Order cancelled - Patient discharged Performed By: #### L 100.0100, L500.4050 ####[facility] [address] [place], [address] CL Normal 98-107 [facility] Comment on above: Result Comment: Canc elled via OM: Order cancelled - Patient discharged Performed By: #### L 100.0100, L500.4050 ####[facility] [address] [place], [address] CO2 Normal 21.0-32.0 [facility] Comment on above: Result Comment: Canc elled via OM: Order cancelled - Patient discharged Performed By: #### L 100.0100, L500.4050 ####[facility] [address] [place], [address] CREAT,SERUM Normal 0.55-1.02 [facility] Comment on above: Result Comment: Canc elled via OM: Order cancelled - Patient discharged Performed By: #### L 100.0100, L500.4050 ####[facility] [address] [place], [address] EST GFR Normal >60 [facility] Comment on above: Result Comment: Canc elled via OM: Order cancelled - Patient discharged Performed By: #### L 100.0100, L500.4050 ####[facility] [address] [place], [address] EST GFR - AA Normal >60 [facility] Comment on above: Result Comment: Canc elled via OM: Order cancelled - Patient discharged Performed By: #### L 100.0100, L500.4050 ####[facility] [address] [place], [address] GAP Normal 5-15 [facility] Comment on above: Result Comment: Canc elled via OM: Order cancelled - Patient discharged Performed By: #### L 100.0100, L500.4050 ####[facility] [address] [place], [address] GLU Normal 74-106 [facility] Comment on above: Result Comment: Canc elled via OM: Order cancelled - Patient discharged Performed By: #### L 100.0100, L500.4050 ####[facility] [address] [place], [address] Potassium Normal 3.5-5.1 [facility] Comment on above: Result Comment: Canc elled via OM: Order cancelled - Patient discharged Performed By: #### L 100.0100, L500.4050 ####[facility] [address] [place], [address] T BILI Normal 0.20-1.00 [facility] Comment on above: Result Comment: Canc elled via OM: Order cancelled - Patient discharged Performed By: #### L 100.0100, L500.4050 ####[facility] [address] [place], [address] T PROT Normal 6.4-8.2 [facility] Comment on above: Result Comment: Canc elled via OM: Order cancelled - Patient discharged Performed By: #### L 100.0100, L500.4050 ####[facility] [address] [place], [address] Comprehensive Metabolic Profil Normal 136-145 [facility] Comment on above: Result Comment: Canc elled via OM: Order cancelled - Patient discharged Performed By: #### L 100.0100, L500.4050 ####[facility] [address] [place], [address] Basic Metabolic Profile (BMP )on 11-21-2023 BUN/CRE 15.4 RATIO Normal 10-20 [facility] Comment on above: Performed By: #### L 500.2500 ####[facility] [address] [place], [address] CA,Total 8.5 mg/dL Normal 8.5-10.1 [facility] Comment on above: Performed By: #### L 500.2500 ####[facility] [address] [place], [address] Chloride [Moles/Vol] 97 mmol/L Low 98-107 [facility] Comment on above: Performed By: #### L 500.2500 ####[facility] [address] [place], [address] CO2 [Moles/Vol] 26.0 mmol/L Normal 21.0-32.0 [facility] Comment on above: Performed By: #### L 500.2500 ####[facility] [address] [place], [address] Creatinine [Mass/Vol] 4.86 mg/dL High 0.55-1.02 [facility] Comment on above: Result Comment: The validity of the calculated GFR GFRAA in patients over70 years has not been determined. Clinical correlation isessential. Performed By: #### L 500.2500 ####[facility] [address] [place] [address] ECRCL 14.58 ml/min Normal [facility] Comment on above: Performed By: #### L 500.2500 ####[facility] [address] [place], [address] EST GFR - AA 12 mL/min Low >60 [facility] Comment on above: Result Comment: Afri can Irish GFR Calc Performed By: #### L 500.2500 ####[facility] [address] [place], [address] GAP 9 Normal 5-15 [facility] Comment on above: Performed By: #### L 500.2500 ####[facility] [address] [place], [address] GFR/1.73 sq M.predicted among non-blacks MDRD (S/P/Bld) [Vol rate/Area] 10 mL/min/{1.73_m2} Low >60 [facility] Comment on above: Result Comment: Non- GFR Calc Performed By: #### L 500.2500 ####[facility] [address], [address] Glucose [Mass/Vol] 325 mg/dL High 74-106 [facility] Comment on above: Result Comment: Gluc ose result greater than or equal to 200 mg/dLsuggests DIABETES MELLITUS per A.D.A. criteria. Performed By: #### L 500.2500 ####[facility] [address] [place], [address] Potassium [Moles/Vol] 4.0 mmol/L Normal 3.5-5.1 [facility] Comment on above: Performed By: #### L 500.2500 ####[facility] [address] [place], [address] Sodium [Moles/Vol] 132 mmol/L Low 136-145 [facility] Comment on above: Performed By: #### L 500.2500 ####[facility] [address] [place], [address] Urea nitrogen [Mass/Vol] 75 mg/dL High 7-18 [facility] Comment on above: Performed By: #### L 500.2500 ####[facility] [address], [address] Bedside Glucoseon 11-21-2023 FINGERSTICK GLU 272 mg/dL High 74-106 [facility] Comment on above: Result Comment: GALA GEMENT OF PATIENT CARE PER NURSING PROTOCOL Performed By: #### L 501.080 ####[facility] [address] [place], [address] FINGERSTICK GLU 314 mg/dL High 74-106 [facility] Comment on above: Result Comment: GALA GEMENT OF PATIENT CARE PER NURSING PROTOCOL Performed By: #### L 501.080 ####[facility] [address], [address] FINGERSTICK GLU 366 mg/dL High 74-106 [facility] Comment on above: Result Comment: GALA DENNISON OF PATIENT CARE PER NURSING PROTOCOL Performed By: #### L 501.080 ####[facility] [address] [place], [address] CBC W/Diff, Automatedon 08-2 Absolute Lymph 0.42 X10 3/uL Low 0.83-4.51 [facility] Comment on above: Performed By: #### L 500.4050, L100.0100 ####[facility] [address], [address] Absolute Neut 13.2 X10 3/uL High 2.0-7.7 [facility] Comment on above: Performed By: #### L 500.4050, L100.0100 ####[facility] [address] [place], [address] Basophils/100 WBC (Bld) 0.1 % Normal 0-1 [facility] Comment on above: Performed By: #### L 500.4050, L100.0100 ####[facility] [address] [place], [address] Eosinophils/100 WBC (Bld) 0.1 % Normal 0-5 [facility] Comment on above: Performed By: #### L 500.4050, L100.0100 ####[facility] [address] [place], [address] Erythrocyte distribution width (RBC) [Ratio] 15.2 % High 11.6-14.6 [facility] Comment on above: Performed By: #### L 500.4050, L100.0100 ####[facility] [address] [place], [address] Hematocrit (Bld) [Volume fraction] 27.4 % Low 37-47 [facility] Comment on above: Performed By: #### L 500.4050, L100.0100 ####[facility] [address] [place], [address] Hemoglobin (Bld) [Mass/Vol] 8.9 g/dL Low 12.0-15.0 [facility] Comment on above: Performed By: #### L 500.4050, L100.0100 ####[facility] [address] [place], [address] IG% 2.400 High 0.0-0.9 [facility] Comment on above: Result Comment: IG% - Immature Granulocytes (promyelocytes, myelocytes andmetamyelocytes) > 1% indicates that a LEFT SHIFT is Present. Performed By: #### L 500.4050, L100.0100 ####[facility] [address] [place], [address] Lymphocytes/100 WBC (Bld) 2.9 % Low 19-41 [facility] Comment on above: Performed By: #### L 500.4050, L100.0100 ####[facility] [address] [place], [address] MCH (RBC) [Entitic mass] 31.0 pg Normal 27.0-32.0 [facility] Comment on above: Performed By: #### L 500.4050, L100.0100 ####[facility] [address] [place], [address] MCHC (RBC) [Mass/Vol] 32.5 g/dL Normal 32-36 [facility] Comment on above: Performed By: #### L 500.4050, L100.0100 ####[facility] [address] [place], [address] MCV (RBC) [Entitic vol] 95.5 fL Normal 81-99 [facility] Comment on above: Performed By: #### L 500.4050, L100.0100 ####[facility] [address] [place], [address] Monocytes/100 WBC (Bld) 2.3 % Normal 0-10 [facility] Comment on above: Performed By: #### L 500.4050, L100.0100 ####[facility] [address] [place], [address] Neutrophils/100 WBC (Bld) 92.2 % High 47-70 [facility] Comment on above: Performed By: #### L 500.4050, L100.0100 ####[facility] [address] [place], [address] Nucleated RBC (Bld) [#/Vol] 0 10*3/uL Normal 0-5 [facility] Comment on above: Performed By: #### L 500.4050, L100.0100 ####[facility] [address] [place], [address] Platelet mean volume (Bld) [Entitic vol] 13.5 fL High 6.2-12.0 [facility] Comment on above: Performed By: #### L 500.4050, L100.0100 ####[facility] [address], [address] Platelets (Bld) [#/Vol] 165 10*3/uL Normal 150-450 [facility] Comment on above: Performed By: #### L 500.4050, L100.0100 ####[facility] [address] [place], [address] RBC (Bld) [#/Vol] 2.87 10*6/uL Low 4.2-5.4 [place] Comment on above: Performed By: #### L 500.4050, L100.0100 ####[facility] [address] [place], [address] RDW SD 52.8 fl High 35.1-43.9 [facility] Comment on above: Performed By: #### L 500.4050, L100.0100 ####[facility] [address] [place], [address] WBC (Bld) [#/Vol] 14.3 10*3/uL High 4.4-11.0 [place] Comment on above: Performed By: #### L 500.4050, L100.0100 ####[facility] [address] [place], [address] Comprehensive Metabolic Prof ilon 11-21-2023 Albumin [Mass/Vol] 2.9 g/dL Low 3.2-5.0 [facility] Comment on above: Performed By: #### L 500.4050, L100.0100 ####[facility] [address] [place], [address] Albumin/Globulin [Mass ratio] 0.9 {ratio} Normal 0.9-2.4 [facility] Comment on above: Performed By: #### L 500.4050, L100.0100 ####[facility] [address] [place], [address] ALK P 56 U/L Normal 45-117 [facility] Comment on above: Performed By: #### L 500.4050, L100.0100 ####[facility] [address] [place], [address] ALT [Catalytic activity/Vol] 32 U/L Normal 13-56 [facility] Comment on above: Performed By: #### L 500.4050, L100.0100 ####[facility] [address] [place], [address] AST [Catalytic activity/Vol] 31 U/L Normal 15-37 [facility] Comment on above: Performed By: #### L 500.4050, L100.0100 ####[facility] [address] [place], [address] Bilirubin [Mass/Vol] 0.70 mg/dL Normal 0.20-1.00 [facility] Comment on above: Result Comment: For patients on eltrombopag therapy, use of Dimension [place] TBIL is not recommended. Performed By: #### L 500.4050, L100.0100 ####[facility] [address] [place], [address] BUN/CRE 16.6 RATIO Normal 10-20 [facility] Comment on above: Performed By: #### L 500.4050, L100.0100 ####[facility] [address] [place], [address] CA,Total 7.6 mg/dL Low 8.5-10.1 [facility] Comment on above: Performed By: #### L 500.4050, L100.0100 ####[facility] [address] [place], [address] Chloride [Moles/Vol] 97 mmol/L Low 98-107 [facility] Comment on above: Performed By: #### L 500.4050, L100.0100 ####[facility] [address] [place], [address] CO2 [Moles/Vol] 20.0 mmol/L Low 21.0-32.0 [facility] Comment on above: Performed By: #### L 500.4050, L100.0100 ####[facility] [address] [place], [address] Creatinine [Mass/Vol] 7.10 mg/dL High 0.55-1.02 [facility] Comment on above: Result Comment: The validity of the calculated GFR GFRAA in patients over70 years has not been determined. Clinical correlation isessential. Performed By: #### L 500.4050, L100.0100 ####[facility] [address] [place], [address] ECRCL 10.14 ml/min Normal [facility] Comment on above: Performed By: #### L 500.4050, L100.0100 ####[facility] [address] [place], [address] EST GFR - AA 8 mL/min Low >60 [facility] Comment on above: Result Comment: Afri can Irish GFR Calc Performed By: #### L 500.4050, L100.0100 ####[facility] [address] [place], [address] GAP 14 Normal 5-15 [facility] Comment on above: Performed By: #### L 500.4050, L100.0100 ####[facility] [address] [place], [address] GFR/1.73 sq M.predicted among non-blacks MDRD (S/P/Bld) [Vol rate/Area] 6 mL/min/{1.73_m2} Low >60 [facility] Comment on above: Result Comment: Non- GFR Calc Performed By: #### L 500.4050, L100.0100 ####[facility] [address] [place], [address] Globulin (S) [Mass/Vol] 3.4 g/dL Normal 2.2-4.2 [facility] Comment on above: Performed By: #### L 500.4050, L100.0100 ####[facility] [address] [place], [address] Glucose [Mass/Vol] 355 mg/dL High 74-106 [facility] Comment on above: Result Comment: Gluc ose result greater than or equal to 200 mg/dLsuggests DIABETES MELLITUS per A.D.A. criteria. Performed By: #### L 500.4050, L100.0100 ####[facility] [address] [place], [address] Potassium [Moles/Vol] 5.5 mmol/L High 3.5-5.1 [facility] Comment on above: Performed By: #### L 500.4050, L100.0100 ####[facility] [address] [place], [address] Sodium [Moles/Vol] 131 mmol/L Low 136-145 [facility] Comment on above: Performed By: #### L 500.4050, L100.0100 ####[facility] [address] [place], [address] T PROT 6.3 g/dL Low 6.4-8.2 [facility] Comment on above: Performed By: #### L 500.4050, L100.0100 ####[facility] [address] [place], [address] Urea nitrogen [Mass/Vol] 118 mg/dL Invalid Interpretation Code 10-14 [facility] Comment on above: Result Comment: Crit ical Result(s) Called at: 05:31:02 11/21/2023 by: NoahBurns. mila Alatorre RN PCU. Results read back by same. Performed By: #### L 500.4050, L100.0100 ####[facility] [address] [place], [address] Discharge Instructionon 10-29 Discharge Instruction Normal [facility] Urine Cultureon 11-21-2023 URC Normal [facility] Comment on above: Performed By: #### M 100.2200, L400.0001, M300.4600, M300.4500 ####[facility] [address] [place], [address] Basic Metabolic Profile (BMP )on 11-20-2023 BUN Normal 10-14 [facility] Comment on above: Result Comment: Canjulian duffy via OM: Ordered Performed By: #### L 500.2500 ####[facility] [address] [place], [address] BUN/CRE Normal 10-20 [facility] Comment on above: Result Comment: Canc elled via OM: MD Ordered Performed By: #### L 500.2500 ####[facility] [address] [place], [address] CA,Total Normal 8.5-10.1 [facility] Comment on above: Result Comment: Canc elled via OM: MD Ordered Performed By: #### L 500.2500 ####[facility] [address] [place], [address] CL Normal 98-107 [facility] Comment on above: Result Comment: Canc elled via OM: MD Ordered Performed By: #### L 500.2500 ####[facility] [address] [place], [address] CO2 Normal 21.0-32.0 [facility] Comment on above: Result Comment: Canc elled via OM: MD Ordered Performed By: #### L 500.2500 ####[facility] [address] [place], [address] CREAT,SERUM Normal 0.55-1.02 [facility] Comment on above: Result Comment: Canc elled via OM: MD Ordered Performed By: #### L 500.2500 ####[facility] [address] [place], [address] EST GFR Normal >60 [facility] Comment on above: Result Comment: Canc elled via OM: MD Ordered Performed By: #### L 500.2500 ####[facility] [address] [place], [address] EST GFR - AA Normal >60 [facility] Comment on above: Result Comment: Canc elled via OM: MD Ordered Performed By: #### L 500.2500 ####[facility] [address] [place], [address] GAP Normal 5-15 [facility] Comment on above: Result Comment: Canc elled via OM: MD Ordered Performed By: #### L 500.2500 ####[facility] [address] [place], [address] GLU Normal 74-106 [facility] Comment on above: Result Comment: Canc elled via OM: MD Ordered Performed By: #### L 500.2500 ####[facility] [address] [place], [address] Potassium Normal 3.5-5.1 [facility] Comment on above: Result Comment: Canc elled via OM: MD Ordered Performed By: #### L 500.2500 ####[facility] [address] [place], [address] Basic Metabolic Profile (BMP) Normal 136-145 [facility] Comment on above: Result Comment: Canc elled via OM: MD Ordered Performed By: #### L 500.2500 ####[facility] [address] [place], [address] Bedside Glucoseon 11-20-2023 FINGERSTICK GLU 442 mg/dL High 74-106 [facility] Comment on above: Result Comment: GALA GEMENT OF PATIENT CARE PER NURSING PROTOCOL Performed By: #### L 501.080 ####[facility] [address] [place], [address] FINGERSTICK GLU 345 mg/dL High 74-106 [facility] Comment on above: Result Comment: GALA GEMENT OF PATIENT CARE PER NURSING PROTOCOL Performed By: #### L 501.080 ####[facility] [address] [place], [address] FINGERSTICK GLU 247 mg/dL High 74-106 [facility] Comment on above: Result Comment: GALA GEMENT OF PATIENT CARE PER NURSING PROTOCOL Performed By: #### L 501.080 ####[facility] [address] [place], [address] FINGERSTICK GLU 123 mg/dL High [address] [place] [address] Comment on above: Result Comment: GALA GEMENT OF PATIENT CARE PER NURSING PROTOCOL Performed By: #### L 501.080 ####[facility] [address] [place], [address] FINGERSTICK GLU 129 mg/dL High -[address] [place] [address] Comment on above: Result Comment: GALA GEMENT OF PATIENT CARE PER NURSING PROTOCOL Performed By: #### L 501.080 ####[facility] [address] [place], [address] FINGERSTICK GLU 311 mg/dL High [address] [place] [address] Comment on above: Result Comment: GALA GEMENT OF PATIENT CARE PER NURSING PROTOCOL Performed By: #### L 501.080 ####[facility] [address], [address] FINGERSTICK GLU 474 mg/dL Invalid Interpretation Code [address] [place] [address] Comment on above: Result Comment: Repe at TestMANAGEMENT OF PATIENT CARE PER NURSING PROTOCOL Performed By: #### L 501.080 ####[facility] [address] [place], [address] FINGERSTICK GLU > 500 Invalid Interpretation Code [address] [place] [address] Comment on above: Result Comment: Insu kami GivenMANAGEMENT OF PATIENT CARE PER NURSING PROTOCOL Performed By: #### L 501.080 ####[facility] [address] [place], [address] CBC W/Diff, Automatedon 08-2 Absolute Lymph 0.45 X10 3/uL Low 0.83-4.51 [facility] Comment on above: Performed By: #### L 100.0100, L500.4050 ####[facility] [address] [place], [address] Absolute Neut 14.5 X10 3/uL High 2.0-7.7 [facility] Comment on above: Performed By: #### L 100.0100, L500.4050 ####[facility] [address] [place], [address] Basophils/100 WBC (Bld) 0.1 % Normal 0-1 [facility] Comment on above: Performed By: #### L 100.0100, L500.4050 ####[facility] [address] [place], [address] Eosinophils/100 WBC (Bld) 0.0 % Normal 0-5 [facility] Comment on above: Performed By: #### L 100.0100, L500.4050 ####[facility] [address] [place], [address] Erythrocyte distribution width (RBC) [Ratio] 15.2 % High 11.6-14.6 [facility] Comment on above: Performed By: #### L 100.0100, L500.4050 ####[facility] [address] [place], [address] Hematocrit (Bld) [Volume fraction] 29.1 % Low 37-47 [facility] Comment on above: Performed By: #### L 100.0100, L500.4050 ####[facility] [address] [place], [address] Hemoglobin (Bld) [Mass/Vol] 9.6 g/dL Low 12.0-15.0 [facility] Comment on above: Performed By: #### L 100.0100, L500.4050 ####[facility] [address] [place], [address] IG% 1.100 High 0.0-0.9 [facility] Comment on above: Result Comment: IG% - Immature Granulocytes (promyelocytes, myelocytes andmetamyelocytes) > 1% indicates that a LEFT SHIFT is Present. Performed By: #### L 100.0100, L500.4050 ####[facility] [address] [place], [address] Lymphocytes/100 WBC (Bld) 2.8 % Low 19-41 [facility] Comment on above: Performed By: #### L 100.0100, L500.4050 ####[facility] [address] [place], [address] MCH (RBC) [Entitic mass] 31.2 pg Normal 27.0-32.0 [facility] Comment on above: Performed By: #### L 100.0100, L500.4050 ####[facility] [address] [place], [address] MCHC (RBC) [Mass/Vol] 33.0 g/dL Normal 32-36 [facility] Comment on above: Performed By: #### L 100.0100, L500.4050 ####[facility] [address] [place], [address] MCV (RBC) [Entitic vol] 94.5 fL Normal 81-99 [facility] Comment on above: Performed By: #### L 100.0100, L500.4050 ####[facility] [address] [place], [address] Monocytes/100 WBC (Bld) 4.4 % Normal 0-10 [facility] Comment on above: Performed By: #### L 100.0100, L500.4050 ####[facility] [address] [place], [address] Neutrophils/100 WBC (Bld) 91.6 % High 47-70 [facility] Comment on above: Performed By: #### L 100.0100, L500.4050 ####[facility] [address] [place], [address] Nucleated RBC (Bld) [#/Vol] 0 10*3/uL Normal 0-5 [facility] Comment on above: Performed By: #### L 100.0100, L500.4050 ####[facility] [address] [place], [address] Platelet mean volume (Bld) [Entitic vol] 12.6 fL High 6.2-12.0 [facility] Comment on above: Performed By: #### L 100.0100, L500.4050 ####[facility] [address] [place], [address] Platelets (Bld) [#/Vol] 165 10*3/uL Normal 150-450 [facility] Comment on above: Performed By: #### L 100.0100, L500.4050 ####[facility] [address] [place], [address] RBC (Bld) [#/Vol] 3.08 10*6/uL Low 4.2-5.4 [place] Comment on above: Performed By: #### L 100.0100, L500.4050 ####[facility] [address] [place], [address] RDW SD 52.5 fl High 35.1-43.9 [facility] Comment on above: Performed By: #### L 100.0100, L500.4050 ####[facility] [address] [place], [address] WBC (Bld) [#/Vol] 15.9 10*3/uL High 4.4-11.0 [place] Comment on above: Performed By: #### L 100.0100, L500.4050 ####[facility] [address] [place], [address] Comprehensive Metabolic Prof [facility] 11-20-2023 Albumin [Mass/Vol] 2.9 g/dL Low 3.2-5.0 [facility] Comment on above: Performed By: #### L 100.0100, L500.4050 ####[facility] [address], [address] Albumin/Globulin [Mass ratio] 0.8 {ratio} Low 0.9-2.4 [facility] Comment on above: Performed By: #### L 100.0100, L500.4050 ####[facility] [address] [place], [address] ALK P 66 U/L Normal 45-117 [facility] Comment on above: Performed By: #### L 100.0100, L500.4050 ####[facility] [address] [place], [address] ALT [Catalytic activity/Vol] 23 U/L Normal 13-56 [facility] Comment on above: Performed By: #### L 100.0100, L500.4050 ####[facility] [address] [place], [address] AST [Catalytic activity/Vol] 26 U/L Normal 15-37 [facility] Comment on above: Performed By: #### L 100.0100, L500.4050 ####[facility] [address] [place], [address] Bilirubin [Mass/Vol] 0.80 mg/dL Normal 0.20-1.00 [facility] Comment on above: Result Comment: For patients on eltrombopag therapy, use of Dimension [place] TBIL is not recommended. Performed By: #### L 100.0100, L500.4050 ####[facility] [address] [place], [address] BUN/CRE 14.6 RATIO Normal 10-20 [facility] Comment on above: Performed By: #### L 100.0100, L500.4050 ####[facility] [address] [place], [address] CA,Total 8.5 mg/dL Normal 8.5-10.1 [facility] Comment on above: Performed By: #### L 100.0100, L500.4050 ####[facility] [address] [place], [address] Chloride [Moles/Vol] 102 mmol/L Normal 98-107 [facility] Comment on above: Performed By: #### L 100.0100, L500.4050 ####[facility] [address] [place], [address] CO2 [Moles/Vol] 27.0 mmol/L Normal 21.0-32.0 [facility] Comment on above: Performed By: #### L 100.0100, L500.4050 ####[facility] [address] [place], [address] Creatinine [Mass/Vol] 6.02 mg/dL High 0.55-1.02 [facility] Comment on above: Result Comment: The validity of the calculated GFR GFRAA in patients over70 years has not been determined. Clinical correlation isessential. Performed By: #### L 100.0100, L500.4050 ####[facility] [address] [place], [address] ECRCL 11.96 ml/min Normal [facility] Comment on above: Performed By: #### L 100.0100, L500.4050 ####[facility] [address] [place], [address] EST GFR - AA 9 mL/min Low >60 [facility] Comment on above: Result Comment: Afri can Irish GFR Calc Performed By: #### L 100.0100, L500.4050 ####[facility] [address] [place], [address] GAP 8 Normal 5-15 [facility] Comment on above: Performed By: #### L 100.0100, L500.4050 ####[facility] [address] [place], [address] GFR/1.73 sq M.predicted among non-blacks MDRD (S/P/Bld) [Vol rate/Area] 8 mL/min/{1.73_m2} Low >60 [facility] Comment on above: Result Comment: Non- GFR Calc Performed By: #### L 100.0100, L500.4050 ####[facility] [address] [place], [address] Globulin (S) [Mass/Vol] 3.6 g/dL Normal 2.2-4.2 [facility] Comment on above: Performed By: #### L 100.0100, L500.4050 ####[facility] [address] [place], [address] Glucose [Mass/Vol] 137 mg/dL High 74-106 [facility] Comment on above: Result Comment: Fast ing Glucose result greater than or equal to 126 mg/dLsuggests DIABETES MELLITUS per A.D.A. criteria. Performed By: #### L 100.0100, L500.4050 ####[facility] [address] [place], [address] Potassium [Moles/Vol] 5.2 mmol/L High 3.5-5.1 [facility] Comment on above: Performed By: #### L 100.0100, L500.4050 ####[facility] [address] [place], [address] Sodium [Moles/Vol] 137 mmol/L Normal 136-145 [facility] Comment on above: Performed By: #### L 100.0100, L500.4050 ####[facility] [address] [place], [address] T PROT 6.5 g/dL Normal 6.4-8.2 [facility] Comment on above: Performed By: #### L 100.0100, L500.4050 ####[facility] [address] [place], [address] Urea nitrogen [Mass/Vol] 88 mg/dL High 7-18 [facility] Comment on above: Performed By: #### L 100.0100, L500.4050 ####[facility] [address] [place], [address] Consultation - Intensiviston 11-20-2023 Consultation - Air Launch Weapons Technician Normal [facility] M8200.1000on 11-20-2023 M8200.1000 Pending MRSA PCR MRSA NEGATIVE * This is an amended result. * A prior result that was reported as final has been changed. 11/21/23 0654 by [facility] Comment on above: Performed By: #### M 8200.1000 ####[facility] [address] [place], [address] Vancomycin, Random Levelon 0 11-20-2023 VANCO, RANDOM 16.2 ug/mL High 0.0-15.0 [facility] Comment on above: Result Comment: VANC OMYCIN STANDARD DRUG THERAPY: CRITICAL VALUE IS > 15.0 mg/LVANCOMYCIN HIGH INTENSITY THERAPY: CRITICAL VALUE IS > 20.0 mg/LPLEASE CONTACT PHARMACY SERVICES (#1171) FOR INTERPRETATIONOF RESULTS. THIS RESULT DOES NOT REPRESENT A PEAK OR TROUGHLEVEL FOR THIS DRUG. Performed By: #### L 501.8850 ####[facility] [address] [place], [address] Basic Metabolic Profile (BMP )on 11-19-2023 BUN/CRE 12.6 RATIO Normal 10-20 [facility] Comment on above: Performed By: #### L 500.2500 ####[facility] [address] [place], [address] CA,Total 7.9 mg/dL Low 8.5-10.1 [facility] Comment on above: Performed By: #### L 500.2500 ####[facility] [address] [place], [address] Chloride [Moles/Vol] 101 mmol/L Normal 98-107 [facility] Comment on above: Performed By: #### L 500.2500 ####[facility] [address] [place], [address] CO2 [Moles/Vol] 26.0 mmol/L Normal 21.0-32.0 [facility] Comment on above: Performed By: #### L 500.2500 ####[facility] [address] [place], [address] Creatinine [Mass/Vol] 5.25 mg/dL High 0.55-1.02 [facility] Comment on above: Result Comment: The validity of the calculated GFR GFRAA in patients over70 years has not been determined. Clinical correlation isessential. Performed By: #### L 500.2500 ####[facility] [address] [place], [address] ECRCL 13.72 ml/min Normal [facility] Comment on above: Performed By: #### L 500.2500 ####[facility] [address] [place], [address] EST GFR - AA 11 mL/min Low >60 [facility] Comment on above: Result Comment: Afri can Irish GFR Calc Performed By: #### L 500.2500 ####[facility] [address] [place], [address] GAP 9 Normal 5-15 [facility] Comment on above: Performed By: #### L 500.2500 ####[facility] [address] [place], [address] GFR/1.73 sq M.predicted among non-blacks MDRD (S/P/Bld) [Vol rate/Area] 9 mL/min/{1.73_m2} Low >60 [facility] Comment on above: Result Comment: Non- GFR Calc Performed By: #### L 500.2500 ####[facility] [address] [place], [address] Glucose [Mass/Vol] 368 mg/dL High 74-106 [facility] Comment on above: Result Comment: Gluc ose result greater than or equal to 200 mg/dLsuggests DIABETES MELLITUS per A.D.A. criteria. Performed By: #### L 500.2500 ####[facility] [address] [place], [address] Potassium [Moles/Vol] 5.1 mmol/L Normal 3.5-5.1 [facility] Comment on above: Performed By: #### L 500.2500 ####[facility] [address] [place], [address] Sodium [Moles/Vol] 136 mmol/L Normal 136-145 [facility] Comment on above: Performed By: #### L 500.2500 ####[facility] [address] [place], [address] Urea nitrogen [Mass/Vol] 66 mg/dL High 7-18 [facility] Comment on above: Performed By: #### L 500.2500 ####[facility] [address] [place], [address] BUN/CRE 12.6 RATIO Normal 10-20 [facility] Comment on above: Performed By: #### L 100.0100, L500.2500 ####[facility] [address] [place], [address] CA,Total 7.9 mg/dL Low 8.5-10.1 [facility] Comment on above: Performed By: #### L 100.0100, L500.2500 ####[facility] [address] [place], [address] Chloride [Moles/Vol] 104 mmol/L Normal 98-107 [facility] Comment on above: Performed By: #### L 100.0100, L500.2500 ####[facility] [address] [place], [address] CO2 [Moles/Vol] 22.0 mmol/L Normal 21.0-32.0 [facility] Comment on above: Performed By: #### L 100.0100, L500.2500 ####[facility] [address] [place], [address] Creatinine [Mass/Vol] 6.91 mg/dL High 0.55-1.02 [facility] Comment on above: Result Comment: The validity of the calculated GFR GFRAA in patients over70 years has not been determined. Clinical correlation isessential. Performed By: #### L 100.0100, L500.2500 ####[facility] [address] [place], [address] ECRCL 10.59 ml/min Normal [facility] Comment on above: Performed By: #### L 100.0100, L500.2500 ####[facility] [address] [place], [address] EST GFR - AA 8 mL/min Low >60 [facility] Comment on above: Result Comment: Afri can Irish GFR Calc Performed By: #### L 100.0100, L500.2500 ####[facility] [address] [place], [address] GAP 9 Normal 5-15 [facility] Comment on above: Performed By: #### L 100.0100, L500.2500 ####[facility] [address] [place], [address] GFR/1.73 sq M.predicted among non-blacks MDRD (S/P/Bld) [Vol rate/Area] 7 mL/min/{1.73_m2} Low >60 [facility] Comment on above: Result Comment: Non- GFR Calc Performed By: #### L 100.0100, L500.2500 ####[facility] [address] [place], [address] Glucose [Mass/Vol] 241 mg/dL High 74-106 [facility] Comment on above: Result Comment: Gluc ose result greater than or equal to 200 mg/dLsuggests DIABETES MELLITUS per A.D.A. criteria. Performed By: #### L 100.0100, L500.2500 ####[facility] [address] [place], [address] Potassium [Moles/Vol] 6.0 mmol/L Invalid Interpretation Code 3.5-5.1 [facility] Comment on above: Result Comment: Crit ical Result(s) Called at: 07:17:53 11/19/2023 by: MAREK to Kala Roe. Results read back by same. Performed By: #### L 100.0100, L500.2500 ####[facility] [address] [place], [address] Sodium [Moles/Vol] 135 mmol/L Low 136-145 [facility] Comment on above: Performed By: #### L 100.0100, L500.2500 ####[facility] [address] [place], [address] Urea nitrogen [Mass/Vol] 87 mg/dL High 7-18 [facility] Comment on above: Performed By: #### L 100.0100, L500.2500 ####[facility] [address] [place], [address] Bedside Glucoseon 11-19-2023 FINGERSTICK GLU 301 mg/dL High 74-106 [facility] Comment on above: Result Comment: GALA GEMENT OF PATIENT CARE PER NURSING PROTOCOL Performed By: #### L 501.080 ####[facility] [address] [place], [address] FINGERSTICK GLU 271 mg/dL High 74-106 [facility] Comment on above: Result Comment: GALA GEMENT OF PATIENT CARE PER NURSING PROTOCOL Performed By: #### L 501.080 ####[facility] [address] [place], [address] FINGERSTICK GLU 227 mg/dL High 74-106 [facility] Comment on above: Result Comment: GALA GEMENT OF PATIENT CARE PER NURSING PROTOCOL Performed By: #### L 501.080 ####[facility] [address] [place], [address] FINGERSTICK GLU 181 mg/dL High 74-106 [facility] Comment on above: Result Comment: GALA GEMENT OF PATIENT CARE PER NURSING PROTOCOL Performed By: #### L 501.080 ####[facility] [address] [place], [address] CBC W/Diff, Automatedon 10-29 Absolute Lymph 0.43 X10 3/uL Low 0.83-4.51 [facility] Comment on above: Performed By: #### L 100.0100, L500.2500 ####[facility] [address] [place], [address] Absolute Neut 15.9 X10 3/uL High 2.0-7.7 [facility] Comment on above: Performed By: #### L 100.0100, L500.2500 ####[facility] [address] [place], [address] Basophils/100 WBC (Bld) 0.1 % Normal 0-1 [facility] Comment on above: Performed By: #### L 100.0100, L500.2500 ####[facility] [address] [place], [address] Eosinophils/100 WBC (Bld) 0.0 % Normal 0-5 [facility] Comment on above: Performed By: #### L 100.0100, L500.2500 ####[facility] [address] [place], [address] Erythrocyte distribution width (RBC) [Ratio] 15.3 % High 11.6-14.6 [facility] Comment on above: Performed By: #### L 100.0100, L500.2500 ####[facility] [address] [place], [address] Hematocrit (Bld) [Volume fraction] 33.2 % Low 37-47 [facility] Comment on above: Performed By: #### L 100.0100, L500.2500 ####[facility] [address] [place], [address] Hemoglobin (Bld) [Mass/Vol] 10.4 g/dL Low 12.0-15.0 [facility] Comment on above: Performed By: #### L 100.0100, L500.2500 ####[facility] [address] [place], [address] IG% 0.800 Normal 0.0-0.9 [facility] Comment on above: Result Comment: IG% - Immature Granulocytes (promyelocytes, myelocytes andmetamyelocytes) > 1% indicates that a LEFT SHIFT is Present. Performed By: #### L 100.0100, L500.2500 ####[facility] [address] [place], [address] Lymphocytes/100 WBC (Bld) 2.6 % Low 19-41 [facility] Comment on above: Performed By: #### L 100.0100, L500.2500 ####[facility] [address] [place], [address] MCH (RBC) [Entitic mass] 30.9 pg Normal 27.0-32.0 [facility] Comment on above: Performed By: #### L 100.0100, L500.2500 ####[facility] [address] [place], [address] MCHC (RBC) [Mass/Vol] 31.3 g/dL Low 32-36 [facility] Comment on above: Performed By: #### L 100.0100, L500.2500 ####[facility] [address] [place], [address] MCV (RBC) [Entitic vol] 98.5 fL Normal 81-99 [facility] Comment on above: Performed By: #### L 100.0100, L500.2500 ####[facility] [address] [place], [address] Monocytes/100 WBC (Bld) 1.7 % Normal 0-10 [facility] Comment on above: Performed By: #### L 100.0100, L500.2500 ####[facility] [address] [place], [address] Neutrophils/100 WBC (Bld) 94.8 % High 47-70 [facility] Comment on above: Performed By: #### L 100.0100, L500.2500 ####[facility] [address] [place], [address] Nucleated RBC (Bld) [#/Vol] 0 10*3/uL Normal 0-5 [facility] Comment on above: Performed By: #### L 100.0100, L500.2500 ####[facility] [address] [place], [address] Platelet mean volume (Bld) [Entitic vol] 13.2 fL High 6.2-12.0 [facility] Comment on above: Performed By: #### L 100.0100, L500.2500 ####[facility] [address] [place], [address] Platelets (Bld) [#/Vol] 130 10*3/uL Low 150-450 [facility] Comment on above: Performed By: #### L 100.0100, L500.2500 ####[facility] [address] [place], [address] RBC (Bld) [#/Vol] 3.37 10*6/uL Low 4.2-5.4 [facility] Comment on above: Performed By: #### L 100.0100, L500.2500 ####[facility] [address] [place], [address] RDW SD 54.9 fl High 35.1-43.9 [facility] Comment on above: Performed By: #### L 100.0100, L500.2500 ####[facility] [address] [place], [address] WBC (Bld) [#/Vol] 16.8 10*3/uL High 4.4-11.0 [facility] Comment on above: Performed By: #### L 100.0100, L500.2500 ####[facility] [address] [place], [address] Consultation - Nephrologyon 11-19-2023 Consultation - Nephrology Normal [facility] L501.4020on 11-19-2023 TROPONIN-I HS 48 pg/mL Normal 3.0-54.0 [facility] Comment on above: Order Comment: Comme nts: SPECIMEN #3'TROP' Serial specimen #1, #2 or #3: 3 Result Comment: Kaity olmedo Note: New Test Units and Gender Specific Reference Ranges. For more information see Policy Stat Procedure [place] High Sensitivity Troponin (TNIH) and attachments. Performed By: #### L 501.4020 ####[facility] [address] [place], [address] Legionella Antigen Urineon 0 11-19-2023 LEGU Normal [facility] Comment on above: Performed By: #### M 100.2200, L400.0001, M300.4600, M300.4500 ####[facility] [address] [place], [address] Strep pneumoniae Antig(UR,CS F)on 11-19-2023 STPAG Normal [facility] Comment on above: Performed By: #### M 100.2200, L400.0001, M300.4600, M300.4500 ####[facility] [address] [place], [address] Urinalysis, Completeon 11-18 BACTERIA 1+ /hpf Normal None Seen [facility] Comment on above: Order Comment: Urine , Random Performed By: #### M 100.2200, L400.0001, M300.4600, M300.4500 ####[facility] [address] [place], [address] EPI,SQUAMOUS 5-10 SEEN Normal 5-10 [facility] Comment on above: Order Comment: Urine , Random Performed By: #### M 100.2200, L400.0001, M300.4600, M300.4500 ####[facility] [address] [place], [address] RBC 5-10 SEEN Normal 0-5 [facility] Comment on above: Order Comment: Urine , Random Performed By: #### M 100.2200, L400.0001, M300.4600, M300.4500 ####[facility] [address] [place], [address] WBC 10-25 SEEN Normal 0-5 [facility] Comment on above: Order Comment: Urine , Random Performed By: #### M 100.2200, L400.0001, M300.4600, M300.4500 ####[facility] [address] [place], [address] Mucus Ql (Urine sed) 0 SEEN Normal [facility] Comment on above: Order Comment: Urine , Random Performed By: #### M 100.2200, L400.0001, M300.4600, M300.4500 ####[facility] [address] [place], [address] .Auto Diffon 11-18-2023 Basophil, Absolute 0.0 10 3/mcL Normal 0.0-0.2 [facility] ([place]) Comment on above: Performed By: #### L IPID, CBC, CMP, ADIFF, GFR, ANEU, TSH #### [address] [address] Basophils/100 WBC (Bld) 0.3 % Normal 0.0-2.5 [facility] ([place]) Comment on above: Performed By: #### L IPID, CBC, CMP, ADIFF, GFR, ANEU, TSH #### [address] [address] Eosinophil, Absolute 0.2 10 3/mcL Normal 0.0-0.4 [facility] ([place]) Comment on above: Performed By: #### L IPID, CBC, CMP, ADIFF, GFR, ANEU, TSH #### [address] [address] Eosinophils/100 WBC (Bld) 1.3 % Normal 0.0-7.0 [facility] ([place]) Comment on above: Performed By: #### L IPID, CBC, CMP, ADIFF, GFR, ANEU, TSH #### [address] [address] Lymphocyte, Absolute 0.6 10 3/mcL Low 0.8-3.9 [facility] ([place]) Comment on above: Performed By: #### L IPID, CBC, CMP, ADIFF, GFR, ANEU, TSH #### [address] [address] Lymphocytes/100 WBC (Bld) 5.0 % Low 10.0-50.0 [facility] ([place]) Comment on above: Performed By: #### L IPID, CBC, CMP, ADIFF, GFR, ANEU, TSH #### [address] [address] Monocyte, Absolute 0.8 10 3/mcL Normal 0.2-1.0 [facility] ([place]) Comment on above: Performed By: #### L IPID, CBC, CMP, ADIFF, GFR, ANEU, TSH #### [address] [address] Monocytes/100 WBC (Bld) 6.6 % Normal 1.7-13.0 [facility] ([place]) Comment on above: Performed By: #### L IPID, CBC, CMP, ADIFF, GFR, ANEU, TSH #### [address] [address] Neutrophils/100 WBC (Bld) 86.8 % High 37.0-80.0 [facility] ([place]) Comment on above: Performed By: #### L IPID, CBC, CMP, ADIFF, GFR, ANEU, TSH #### [address] [address] .GFRon 11-18-2023 GFR Non- 7 ml/min/1.73sqm Normal [facility] ([place]) Comment on above: Result Comment: GFR Population [...] CBC, CMP, ADIFF, GFR, ANEU, TSH #### [address] [address] GFR 8 ml/min/1.73sqm Normal [facility] ([place]) Comment on above: Result Comment: GFR Population [...] CBC, CMP, ADIFF, GFR, ANEU, TSH #### [address] [address] .MDWon 11-18-2023 Monocyte Distribution Width 16.85 Normal 0.00-20.00 [facility] ([place]) Comment on above: Result Comment: For ED adult patients suspected of sepsis, MDW<=20.0 does not rule out sepsis or risk of sepsis Performed By: #### L IPID, CBC, CMP, ADIFF, GFR, ANEU, TSH #### [address] [address] .NEUABSon 11-18-2023 Neutrophil, Absolute 10.6 10 3/mcL High 2.9-6.2 A [facility] ([place]) Comment on above: Performed By: #### L IPID, CBC, CMP, ADIFF, GFR, ANEU, TSH #### [address] [address] 12 Lead EKGon 11-18-2023 12 Lead EKG Normal [facility] BMPon 11-18-2023 BUN/Creatinine Ratio 13 ratio Normal 7-27 [facility] ([place]) Comment on above: Performed By: #### L IPID, CBC, CMP, ADIFF, GFR, ANEU, TSH #### [address] [address] Calcium [Mass/Vol] 8.3 mg/dL Low 8.4-10.2 [facility] ([place]) Comment on above: Performed By: #### L IPID, CBC, CMP, ADIFF, GFR, ANEU, TSH #### [address] [address] Chloride [Moles/Vol] 102 mmol/L Normal 98-107 [facility] ([place]) Comment on above: Performed By: #### L IPID, CBC, CMP, ADIFF, GFR, ANEU, TSH #### [address] [address] CO2 [Moles/Vol] 29 mmol/L Normal 22-29 [facility] ([place]) Comment on above: Performed By: #### L IPID, CBC, CMP, ADIFF, GFR, ANEU, TSH #### [address] [address] Creatinine [Mass/Vol] 6.39 mg/dL High 0.55-1.02 [facility] ([place]) Comment on above: Performed By: #### L IPID, CBC, CMP, ADIFF, GFR, ANEU, TSH #### [address] [address] Electrolyte Balance 8.0 mEq/L Normal 4.0-15.0 [facility] ([place]) Comment on above: Performed By: #### L IPID, CBC, CMP, ADIFF, GFR, ANEU, TSH #### [address] [address] Glucose [Mass/Vol] 261 mg/dL High 70-105 [facility] ([place]) Comment on above: Performed By: #### L IPID, CBC, CMP, ADIFF, GFR, ANEU, TSH #### [id number] [place], [place] [address] Potassium [Moles/Vol] 5.8 mmol/L High 3.5-5.1 [facility] ([place]) Comment on above: Performed By: #### L IPID, CBC, CMP, ADIFF, GFR, ANEU, TSH #### [address] [place], [place] [address] Sodium [Moles/Vol] 139 mmol/L Normal 136-145 [facility] ([place]) Comment on above: Performed By: #### L IPID, CBC, CMP, ADIFF, GFR, ANEU, TSH #### [address] [place], [place] [address] Urea nitrogen [Mass/Vol] 81 mg/dL High 7-18 [facility] ([place]) Comment on above: Performed By: #### L IPID, CBC, CMP, ADIFF, GFR, ANEU, TSH #### [address] [place], [place] [address] Blood Gases by [facility] 024 JACKIE TEST Positive Normal [facility] Comment on above: Performed By: #### L 9000.0800 ####[facility] [address] [place], [address] Base excess Calc (Bld) [Moles/Vol] -1 mmol/L Normal -2 to +2 [facility] Comment on above: Performed By: #### L 9000.0800 ####[facility] [address] [place], [address] Blood Gas Type ART Normal [facility] Comment on above: Performed By: #### L 9000.0800 ####[facility] [address] [place], [address] CO2 [Moles/Vol] 24 mmol/L Normal [facility] Comment on above: Performed By: #### L 9000.0800 ####[facility] [address] [place], [address] FI02 100.0 Normal [facility] Comment on above: Performed By: #### L 9000.0800 ####[facility] [address] [place], [address] HCO3 (Bld) [Moles/Vol] 23.3 mmol/L Normal 22-26 [facility] Comment on above: Performed By: #### L 9000.0800 ####[facility] [address] [place], [address] Mode Not entered Normal [facility] Comment on above: Performed By: #### L 9000.0800 ####[facility] [address] [place], [address] O2 Delivery Dev NRB Normal [facility] Comment on above: Performed By: #### L 9000.0800 ####[facility] [address] [place], [address] pCO2 37.1 mmHg Normal 35-45 [facility] Comment on above: Performed By: #### L 9000.0800 ####[facility] [address] [place], [address] pH (Bld) 7.41 [pH] Normal 7.35-7.45 [facility] Comment on above: Performed By: #### L 9000.0800 ####[facility] [address] [place], [address] PO2 72 mmHG Low 75-100 [facility] Comment on above: Performed By: #### L 9000.0800 ####[facility] [address] [place], [address] SITE L Radial Normal [facility] Comment on above: Performed By: #### L 9000.0800 ####[facility] [address] [place], [address] SO2 95 Normal 95-99 [facility] Comment on above: Performed By: #### L 9000.0800 ####[facility] [address] [place], [address] CBCon 11-18-2023 Erythrocyte distribution width (RBC) [Ratio] 17.2 % High 11.5-14.5 [facility] ([place]) Comment on above: Performed By: #### T ROPHS, GFR, CBC, BMP, PBNP, MDW, ANEU, ADIFF #### [address] [address] Hematocrit (Bld) [Volume fraction] 34.6 % Low 37.0-47.0 [facility] ([place]) Comment on above: Performed By: #### T ROPHS, GFR, CBC, BMP, PBNP, MDW, ANEU, ADIFF #### [address] [address] Hgb 11.5 G/dL Low 12.0-16.0 [facility] ([place]) Comment on above: Performed By: #### T CLAIREHS, GFR, CBC, BMP, PBNP, MDW, ANEU, ADIFF #### [address] [address] MCH (RBC) [Entitic mass] 31.9 pg High 27.0-31.2 [facility] ([place]) Comment on above: Performed By: #### T ROPHS, GFR, CBC, BMP, PBNP, MDW, ANEU, ADIFF #### [address] [address] MCHC 33.2 G/dL Normal 33.0-37.0 [facility] ([place]) Comment on above: Performed By: #### T ROPHS, GFR, CBC, BMP, PBNP, MDW, ANEU, ADIFF #### [address] [address] MCV (RBC) [Entitic vol] 95.9 fL High 80.0-94.0 [facility] ([place]) Comment on above: Performed By: #### T ROPHS, GFR, CBC, BMP, PBNP, MDW, ANEU, ADIFF #### [address] [address] Platelet 160 10 3/mcL Normal 130-400 [facility] ([place]) Comment on above: Performed By: #### T ROPHS, GFR, CBC, BMP, PBNP, MDW, ANEU, ADIFF #### [address] [address] Platelet mean volume (Bld) [Entitic vol] 11.0 fL High 7.4-10.4 [facility] ([place]) Comment on above: Performed By: #### T ROPHS, GFR, CBC, BMP, PBNP, MDW, ANEU, ADIFF #### [address] [address] RBC 3.61 10 6/mcL Low 4.20-5.40 [facility] ([place]) Comment on above: Performed By: #### T ROPHS, GFR, CBC, BMP, PBNP, MDW, ANEU, ADIFF #### [address] [address] WBC 12.2 10 3/mcL High 4.6-10.8 [facility] ([place]) Comment on above: Performed By: #### T ROPHS, GFR, CBC, BMP, PBNP, MDW, ANEU, ADIFF #### [address] [address] CBC W/Diff, Automatedon 10-29 Absolute Lymph 0.65 X10 3/uL Low 0.83-4.51 [facility] Comment on above: Performed By: #### L 503.6005, L300.3900, L501.5200, M200.1000, L100.0100, L500.4050, L501.3620, L501.4020, L300.4310 ####[facility] [address] [place], [place], [id number] Absolute Neut 17.2 X10 3/uL High 2.0-7.7 [facility] Comment on above: Performed By: #### L 503.6005, L300.3900, L501.5200, M200.1000, L100.0100, L500.4050, L501.3620, L501.4020, L300.4310 ####[facility] [address] [place], [address] Basophils/100 WBC (Bld) 0.2 % Normal 0-1 [facility] Comment on above: Performed By: #### L 503.6005, L300.3900, L501.5200, M200.1000, L100.0100, L500.4050, L501.3620, L501.4020, L300.4310 ####[facility] [address] [place], [address] Eosinophils/100 WBC (Bld) 0.3 % Normal 0-5 [facility] Comment on above: Performed By: #### L 503.6005, L300.3900, L501.5200, M200.1000, L100.0100, L500.4050, L501.3620, L501.4020, L300.4310 ####[facility] [address] [place], [address] Erythrocyte distribution width (RBC) [Ratio] 15.8 % High 11.6-14.6 [facility] Comment on above: Performed By: #### L 503.6005, L300.3900, L501.5200, M200.1000, L100.0100, L500.4050, L501.3620, L501.4020, L300.4310 ####[facility] [address] [place], [address] Hematocrit (Bld) [Volume fraction] 36.1 % Low 37-47 [facility] Comment on above: Performed By: #### L 503.6005, L300.3900, L501.5200, M200.1000, L100.0100, L500.4050, L501.3620, L501.4020, L300.4310 ####[facility] [address] [place], [address] Hemoglobin (Bld) [Mass/Vol] 11.6 g/dL Low 12.0-15.0 [facility] Comment on above: Performed By: #### L 503.6005, L300.3900, L501.5200, M200.1000, L100.0100, L500.4050, L501.3620, L501.4020, L300.4310 ####[facility] [address] [facility] [place], [address] IG% 0.700 Normal 0.0-0.9 [facility] Comment on above: Result Comment: IG% - Immature Granulocytes (promyelocytes, myelocytes andmetamyelocytes) > 1% indicates that a LEFT SHIFT is Present. Performed By: #### L 503.6005, L300.3900, L501.5200, M200.1000, L100.0100, L500.4050, L501.3620, L501.4020, L300.4310 ####[facility] [address] [place], [address] Lymphocytes/100 WBC (Bld) 3.4 % Low 19-41 [facility] Comment on above: Performed By: #### L 503.6005, L300.3900, L501.5200, M200.1000, L100.0100, L500.4050, L501.3620, L501.4020, L300.4310 ####[facility] [address] [place], [address] MCH (RBC) [Entitic mass] 30.8 pg Normal 27.0-32.0 [facility] Comment on above: Performed By: #### L 503.6005, L300.3900, L501.5200, M200.1000, L100.0100, L500.4050, L501.3620, L501.4020, L300.4310 ####[facility] [address] [place], [address] MCHC (RBC) [Mass/Vol] 32.1 g/dL Normal 32-36 [facility] Comment on above: Performed By: #### L 503.6005, L300.3900, L501.5200, M200.1000, L100.0100, L500.4050, L501.3620, L501.4020, L300.4310 ####[facility] [address] [place], [address] MCV (RBC) [Entitic vol] 95.8 fL Normal 81-99 [facility] Comment on above: Performed By: #### L 503.6005, L300.3900, L501.5200, M200.1000, L100.0100, L500.4050, L501.3620, L501.4020, L300.4310 ####[facility] [address] [place], [address] Monocytes/100 WBC (Bld) 6.4 % Normal 0-10 [facility] Comment on above: Performed By: #### L 503.6005, L300.3900, L501.5200, M200.1000, L100.0100, L500.4050, L501.3620, L501.4020, L300.4310 ####[facility] [address] [place], [address] Neutrophils/100 WBC (Bld) 89.0 % High 47-70 [facility] Comment on above: Performed By: #### L 503.6005, L300.3900, L501.5200, M200.1000, L100.0100, L500.4050, L501.3620, L501.4020, L300.4310 ####[facility] [address] [place], [address]( Nucleated RBC (Bld) [#/Vol] 0 10*3/uL Normal 0-5 [facility] Comment on above: Performed By: #### L 503.6005, L300.3900, L501.5200, M200.1000, L100.0100, L500.4050, L501.3620, L501.4020, L300.4310 ####[facility] [address] [place], [address]( Platelet mean volume (Bld) [Entitic vol] 13.0 fL High 6.2-12.0 [facility] Comment on above: Performed By: #### L 503.6005, L300.3900, L501.5200, M200.1000, L100.0100, L500.4050, L501.3620, L501.4020, L300.4310 ####[facility] [address] [place], [address] Platelets (Bld) [#/Vol] 207 10*3/uL Normal 150-450 [facility] Comment on above: Performed By: #### L 503.6005, L300.3900, L501.5200, M200.1000, L100.0100, L500.4050, L501.3620, L501.4020, L300.4310 ####[facility] [address] [place], [address] RBC (Bld) [#/Vol] 3.77 10*6/uL Low 4.2-5.4 [facility] Comment on above: Performed By: #### L 503.6005, L300.3900, L501.5200, M200.1000, L100.0100, L500.4050, L501.3620, L501.4020, L300.4310 ####[facility] [address] [place], [address] RDW SD 55.3 fl High 35.1-43.9 [facility] Comment on above: Performed By: #### L 503.6005, L300.3900, L501.5200, M200.1000, L100.0100, L500.4050, L501.3620, L501.4020, L300.4310 ####[facility] [address] [place], [place], [phone] WBC (Bld) [#/Vol] 19.3 10*3/uL High 4.4-11.0 [facility] Comment on above: Performed By: #### L 503.6005, L300.3900, L501.5200, M200.1000, L100.0100, L500.4050, L501.3620, L501.4020, L300.4310 ####[facility] [address] [place], [place], [id number] CPK Total, Creatine Kinaseon 11-18-2023 CPK TOTAL 86 U/L Normal 26-192 [facility] Comment on above: Order Comment: 'TROP ' Serial specimen #1, #2 or #3: 1 Performed By: #### L 503.6005, L300.3900, L501.5200, M200.1000, L100.0100, L500.4050, L501.3620, L501.4020, L300.4310 ####[facility] [address] [place], [place], [phone] Chest 1 View (Portable)on Chest 1 View (Portable) Normal [facility] Chest 1 View (Portable) Normal [facility] Comprehensive Metabolic Prof ilon 11-18-2023 Albumin [Mass/Vol] 3.1 g/dL Low 3.2-5.0 [facility] Comment on above: Order Comment: 'TROP ' Serial specimen #1, #2 or #3: 1 Performed By: #### L 503.6005, L300.3900, L501.5200, M200.1000, L100.0100, L500.4050, L501.3620, L501.4020, L300.4310 ####[facility] [address] [place], [address] Albumin/Globulin [Mass ratio] 0.8 {ratio} Low 0.9-2.4 [facility] Comment on above: Order Comment: 'TROP ' Serial specimen #1, #2 or #3: 1 Performed By: #### L 503.6005, L300.3900, L501.5200, M200.1000, L100.0100, L500.4050, L501.3620, L501.4020, L300.4310 ####[facility] [address] [place], [address](269) ALK P 89 U/L Normal 45-117 [facility] Comment on above: Order Comment: 'TROP ' Serial specimen #1, #2 or #3: 1 Performed By: #### L 503.6005, L300.3900, L501.5200, M200.1000, L100.0100, L500.4050, L501.3620, L501.4020, L300.4310 ####[facility] [address] [place], [address](795) ALT [Catalytic activity/Vol] 24 U/L Normal 13-56 [facility] Comment on above: Order Comment: 'TROP ' Serial specimen #1, #2 or #3: 1 Performed By: #### L 503.6005, L300.3900, L501.5200, M200.1000, L100.0100, L500.4050, L501.3620, L501.4020, L300.4310 ####[facility] [address] [place], [address]( AST [Catalytic activity/Vol] 25 U/L Normal 15-37 [facility] Comment on above: Order Comment: 'TROP ' Serial specimen #1, #2 or #3: 1 Performed By: #### L 503.6005, L300.3900, L501.5200, M200.1000, L100.0100, L500.4050, L501.3620, L501.4020, L300.4310 ####[facility] [address] [place], [place], [phone] Bilirubin [Mass/Vol] 0.60 mg/dL Normal 0.20-1.00 [facility] Comment on above: Order Comment: 'TROP ' Serial specimen #1, #2 or #3: 1 Result Comment: For patients on eltrombopag therapy, use of Dimension [place] TBIL is not recommended. Performed By: #### L 503.6005, L300.3900, L501.5200, M200.1000, L100.0100, L500.4050, L501.3620, L501.4020, L300.4310 ####[facility] [address] [place], [place], [phone] BUN/CRE 11.4 RATIO Normal 10-20 [facility] Comment on above: Order Comment: 'TROP ' Serial specimen #1, #2 or #3: 1 Performed By: #### L 503.6005, L300.3900, L501.5200, M200.1000, L100.0100, L500.4050, L501.3620, L501.4020, L300.4310 ####[facility] [address] [place], [place], [phone] CA,Total 8.1 mg/dL Low 8.5-10.1 [facility] Comment on above: Order Comment: 'TROP ' Serial specimen #1, #2 or #3: 1 Performed By: #### L 503.6005, L300.3900, L501.5200, M200.1000, L100.0100, L500.4050, L501.3620, L501.4020, L300.4310 ####[facility] [address] [place], [address] Chloride [Moles/Vol] 106 mmol/L Normal 98-107 [facility] Comment on above: Order Comment: 'TROP ' Serial specimen #1, #2 or #3: 1 Performed By: #### L 503.6005, L300.3900, L501.5200, M200.1000, L100.0100, L500.4050, L501.3620, L501.4020, L300.4310 ####[facility] [address] [place], [address] CO2 [Moles/Vol] 22.0 mmol/L Normal 21.0-32.0 [facility] Comment on above: Order Comment: 'TROP ' Serial specimen #1, #2 or #3: 1 Performed By: #### L 503.6005, L300.3900, L501.5200, M200.1000, L100.0100, L500.4050, L501.3620, L501.4020, L300.4310 ####[facility] [address] [place], [address] Creatinine [Mass/Vol] 6.40 mg/dL High 0.55-1.02 [facility] Comment on above: Order Comment: 'TROP ' Serial specimen #1, #2 or #3: 1 Result Comment: The validity of the calculated GFR GFRAA in patients over70 years has not been determined. Clinical correlation isessential. Performed By: #### L 503.6005, L300.3900, L501.5200, M200.1000, L100.0100, L500.4050, L501.3620, L501.4020, L300.4310 ####[facility] [address] [place], [address] ECRCL 11.44 ml/min Normal [facility] Comment on above: Order Comment: 'TROP ' Serial specimen #1, #2 or #3: 1 Performed By: #### L 503.6005, L300.3900, L501.5200, M200.1000, L100.0100, L500.4050, L501.3620, L501.4020, L300.4310 ####[facility] [address] [place], [place], [phone](153) EST GFR - AA 9 mL/min Low >60 [facility] Comment on above: Order Comment: 'TROP ' Serial specimen #1, #2 or #3: 1 Result Comment: Afri can Irish GFR Calc Performed By: #### L 503.6005, L300.3900, L501.5200, M200.1000, L100.0100, L500.4050, L501.3620, L501.4020, L300.4310 ####[facility] [address] [place], [place], [phone]) GAP 7 Normal 5-15 [facility] Comment on above: Order Comment: 'TROP ' Serial specimen #1, #2 or #3: 1 Performed By: #### L 503.6005, L300.3900, L501.5200, M200.1000, L100.0100, L500.4050, L501.3620, L501.4020, L300.4310 ####[facility] [address] [place], [place], [phone](354) GFR/1.73 sq M.predicted among non-blacks MDRD (S/P/Bld) [Vol rate/Area] 7 mL/min/{1.73_m2} Low >60 [facility] Comment on above: Order Comment: 'TROP ' Serial specimen #1, #2 or #3: 1 Result Comment: Non- GFR Calc Performed By: #### L 503.6005, L300.3900, L501.5200, M200.1000, L100.0100, L500.4050, L501.3620, L501.4020, L300.4310 ####[facility] [address] [place], [place], [phone]) Globulin (S) [Mass/Vol] 3.8 g/dL Normal 2.2-4.2 [facility] Comment on above: Order Comment: 'TROP ' Serial specimen #1, #2 or #3: 1 Performed By: #### L 503.6005, L300.3900, L501.5200, M200.1000, L100.0100, L500.4050, L501.3620, L501.4020, L300.4310 ####[facility] [address] [place], [address] Glucose [Mass/Vol] 153 mg/dL High 74-106 [facility] Comment on above: Order Comment: 'TROP ' Serial specimen #1, #2 or #3: 1 Result Comment: Fast ing Glucose result greater than or equal to 126 mg/dLsuggests DIABETES MELLITUS per A.D.A. criteria. Performed By: #### L 503.6005, L300.3900, L501.5200, M200.1000, L100.0100, L500.4050, L501.3620, L501.4020, L300.4310 ####[facility] [address] [place], [address] Potassium [Moles/Vol] 5.4 mmol/L High 3.5-5.1 [facility] Comment on above: Order Comment: 'TROP ' Serial specimen #1, #2 or #3: 1 Performed By: #### L 503.6005, L300.3900, L501.5200, M200.1000, L100.0100, L500.4050, L501.3620, L501.4020, L300.4310 ####[facility] [address] [place], [address] Sodium [Moles/Vol] 135 mmol/L Low 136-145 [facility] Comment on above: Order Comment: 'TROP ' Serial specimen #1, #2 or #3: 1 Performed By: #### L 503.6005, L300.3900, L501.5200, M200.1000, L100.0100, L500.4050, L501.3620, L501.4020, L300.4310 ####[facility] [address] [place], [address] T PROT 6.9 g/dL Normal 6.4-8.2 [facility] Comment on above: Order Comment: 'TROP ' Serial specimen #1, #2 or #3: 1 Performed By: #### L 503.6005, L300.3900, L501.5200, M200.1000, L100.0100, L500.4050, L501.3620, L501.4020, L300.4310 ####[facility] [address] [place], [address] Urea nitrogen [Mass/Vol] 73 mg/dL High 7-18 [facility] Comment on above: Order Comment: 'TROP ' Serial specimen #1, #2 or #3: 1 Performed By: #### L 503.6005, L300.3900, L501.5200, M200.1000, L100.0100, L500.4050, L501.3620, L501.4020, L300.4310 ####[facility] [address] [place], [address] H AND P Exam - Hospitaliston 11-18-2023 H&P Exam - Hospitalist Normal [facility] L501.4020on 11-18-2023 TROPONIN-I HS 47 pg/mL Normal 3.0-54.0 [facility] Comment on above: Order Comment: Comme nts: SPECIMEN #2'TROP' Serial specimen #1, #2 or #3: 2 Result Comment: Pleellie olmedo Note: New Test Units and Gender Specific Reference Ranges. For more information see Policy Stat Procedure [facility] High Sensitivity Troponin (TNIH) and attachments. Performed By: #### L 501.4020 ####[facility] [address] [place], [address] TROPONIN-I HS 47 pg/mL Normal 3.0-54.0 [facility] Comment on above: Order Comment: 'TROP ' Serial specimen #1, #2 or #3: 1 Result Comment: Kaity olmedo Note: New Test Units and Gender Specific Reference Ranges. For more information see Policy Stat Procedure [facility] High Sensitivity Troponin (TNIH) and attachments. Performed By: #### L 503.6005, L300.3900, L501.5200, M200.1000, L100.0100, L500.4050, L501.3620, L501.4020, L300.4310 ####[facility] [address] [place], [address] LABORATORYOrdered By: SYSTEM SYSTEM on 11-18-2023 Basophil, [...] ng/L Male: 0-76 ng/L Testing performed on [employer] using a homogeneous sandwich chemiluminescent immunoassay based on [employer] technology. Urea nitrogen [Mass/Vol] 81 mg/dL High 7 - 18 mg/dL AO ADM SS Urea nitrogen/Creatinine [Mass ratio] 13 ratio Normal 7 - 27 ratio AO ADM SS WBC (Bld) [#/Vol] 12.2 103/mcL High 4.6 - 10.8 10^3/mcL AO Workflow SS Lactic Acidon 11-18-2023 Lactate [Moles/Vol] 1.3 mmol/L Normal 0.4-1.9 [facility] Comment on above: Order Comment: Comme nts: if result >2, system reflex orders 2nd test @ 4hrsY Performed By: #### L 503.6005, L300.3900, L501.5200, M200.1000, L100.0100, L500.4050, L501.3620, L501.4020, L300.4310 ####[facility] [address] [place], [place], [id number] M100.678on 11-18-2023 M100.678 Pending SARS-CoV-2 (COVID 19) Negative INFLUENZA A Negative INFLUENZA B Negative RSV PCR Negative Normal [facility] Comment on above: Performed By: #### M 100.678 ####[facility] [address] [place], [place], [phone] Magnesiumon 11-18-2023 Magnesium [Mass/Vol] 2.2 mg/dL Normal 1.6-2.6 [facility] Comment on above: Order Comment: 'TROP ' Serial specimen #1, #2 or #3: 1 Performed By: #### L 503.6005, L300.3900, L501.5200, M200.1000, L100.0100, L500.4050, L501.3620, L501.4020, L300.4310 ####[facility] [address] [place], [place], [phone] No Panel Informationon 11-17 Microscopic examination of blood, culture Culture has been received in lab and is no growth to date. Routine cultures are held for 5 days. [facility] Work Phone: PBNPon 11-18-2023 Natriuretic peptide B (Bld) [Mass/Vol] 5757 pg/mL High 0-125 [facility] ([place]) Comment on above: Result Comment: NT-p roBNP results of less than 300 pg/mL effectively rules out acute congestive heart failure with 99% negative predictive value. Performed By: #### L IPID, CBC, CMP, ADIFF, GFR, ANEU, TSH #### [place] [address] [place], [place] [address] Partial Thromboplast Timeon 11-18-2023 aPTT Coag (Bld) [Time] 27.0 s Normal 24.1-36.2 [facility] Comment on above: Performed By: #### L 503.6005, L300.3900, L501.5200, M200.1000, L100.0100, L500.4050, L501.3620, L501.4020, L300.4310 ####[facility] [address] [place], [address] Prothrombin Time w/INRon INR Coag (PPP) [Relative time] 1.1 {INR} Normal [facility] Comment on above: Performed By: #### L 503.6005, L300.3900, L501.5200, M200.1000, L100.0100, L500.4050, L501.3620, L501.4020, L300.4310 ####[facility] [address] [place], [address] PT Coag (PPP) [Time] 14.0 s Normal 11.7-14.9 [facility] Comment on above: Performed By: #### L 503.6005, L300.3900, L501.5200, M200.1000, L100.0100, L500.4050, L501.3620, L501.4020, L300.4310 ####[facility] [address] [place], [address] RESPIRATORY PANEL MOLECULARo n 11-18-2023 RP PANEL Normal [facility] Comment on above: Performed By: #### M 100.638 ####[facility] [address] [place], [address] [facility] 11-18-2023 High Sensitivity Troponin I 29 ng/L Normal 0-51 [facility] ([place]) Comment on above: Result Comment: High Sensitive Troponin I Reference Ranges: Female: 0-51 ng/L Male: 0-76 ng/L Testing performed on [employer] using a homogeneous sandwich chemiluminescent immunoassay based on [employer] technology. 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 BIRADS: BI-RADS: 2: Benign RECALL: [...] YEARS AGO, BUT IS UNSURE OF LOCATION. Radiology Scheduler: HINA GARCIA RT(R)(M)(CT) [employer] letter sent: Normal BI-RADS 1 and 2 Mammogram BI-RADS: 2 Benign Normal [facility] ([place]) XR TIBIA/FIBULA 2 VIEWS LEFT on 10-11-2023 [...] 10/11/2023 10:11:25 PM Ordering Provider: FREDDIE Self [facility] ([place]) BRIEF OP NOTon 09-08-2023 BRIEF OP NOT HNO ID: [id number] Author: JEREMY AGUIRRE MD Service: Interventional Radiology Author Type: Physician Type: Brief Op Note Filed: 09/08/2023 10:33 Note Text: BRIEF OPERATIVE / PROCEDURE NOTE LOG ID: [id number] SURGERY/PROCEDURE DATE: 09/08/2023 INCISION/PROCEDURE START TIME: 10:26 AM INCISION CLOSE/PROCEDURE END TIME: SURGEON(S)/PROCEDURALIST (S) AND REVIT DRAFTER(S): Surgeon(s) and Role: * Jeremy Aguirre MD, MD - Primary No Additional Staff SURGERY/PROCEDURE(S): Removal of tunneled dialysis catheter ANESTHESIA: Local FINDINGS: Successful removal ESTIMATED BLOOD LOSS: Minimal SPECIMENS: None COMPLICATIONS: None CLOSURE TECHNIQUE: Primary PRE-OP/PRE-PROCEDURE DIAGNOSIS: Renal failure POST-OP/POST-PROCEDURE DIAGNOSIS: Same as Preop SIGNATURE: Jeremy Aguirre MD PATIENT NAME: Zayda Davis DATE: September 08, 2023 TIME: 10:32 AM [facility] IR CVC TUNNEL W/PORT REMOVEo n 09-08-2023 [...] performed by the: attending radiologist, without an press assistant and feeder. The attending radiologist performed the following procedural activities: Entire procedure IMPRESSION: REMOVAL OF RIGHT-SIDED TUNNELED DIALYSIS CATHETER. Plan: Please re-consult interventional radiology if new catheter placement is desired. Attestation Signer name: Jeremy Aguirre MD I attest that I was present for the entire procedure. I reviewed the stored images and agree with the report as written. Machine Leather Trimmer: ARIA Transcribe Date/Time: Sep 10 2023 9:55A Dictated by : JEREMY AGUIRRE MD This examination was interpreted and the report reviewed and electronically signed by: JEREMY AGUIRRE MD on Sep 10 2023 9:58AM EST [id number] [facility] .Auto Diffon 09-02-2023 Basophil, Absolute 0.0 10 3/mcL Normal 0.0-0.2 [facility] ([place]) Comment on above: Performed By: #### L IPID, CBC, CMP, ADIFF, GFR, ANEU, TSH #### [address] [place], [place] [address] Basophils/100 WBC (Bld) 0.6 % Normal 0.0-2.5 [facility] ([place]) Comment on above: Performed By: #### L IPID, CBC, CMP, ADIFF, GFR, ANEU, TSH #### [address] [address] Eosinophil, Absolute 0.2 10 3/mcL Normal 0.0-0.4 [facility] ([place]) Comment on above: Performed By: #### L IPID, CBC, CMP, ADIFF, GFR, ANEU, TSH #### [address] [address] Eosinophils/100 WBC (Bld) 3.5 % Normal 0.0-7.0 [facility] ([place]) Comment on above: Performed By: #### L IPID, CBC, CMP, ADIFF, GFR, ANEU, TSH #### [address] [address] Lymphocyte, Absolute 0.8 10 3/mcL Normal 0.8-3.9 [facility] ([place]) Comment on above: Performed By: #### L IPID, CBC, CMP, ADIFF, GFR, ANEU, TSH #### [address] [address] Lymphocytes/100 WBC (Bld) 12.1 % Normal 10.0-50.0 [facility] ([place]) Comment on above: Performed By: #### L IPID, CBC, CMP, ADIFF, GFR, ANEU, TSH #### [address] [address] Monocyte, Absolute 0.7 10 3/mcL Normal 0.2-1.0 [facility] ([place]) Comment on above: Performed By: #### L IPID, CBC, CMP, ADIFF, GFR, ANEU, TSH #### [address] [address] Monocytes/100 WBC (Bld) 9.9 % Normal 1.7-13.0 [facility] ([place]) Comment on above: Performed By: #### L IPID, CBC, CMP, ADIFF, GFR, ANEU, TSH #### [address] [address] Neutrophils/100 WBC (Bld) 73.9 % Normal 37.0-80.0 [facility] ([place]) Comment on above: Performed By: #### L IPID, CBC, CMP, ADIFF, GFR, ANEU, TSH #### [address] [address] .GFRon 09-02-2023 GFR 12 ml/min/1.73sqm Normal [facility] ([place]) Comment on above: Result Comment: GFR Population [...] CBC, CMP, ADIFF, GFR, ANEU, TSH #### [address] [address] GFR Non- 10 ml/min/1.73sqm Normal [facility] ([place]) Comment on above: Result Comment: GFR Population [...] CBC, CMP, ADIFF, GFR, ANEU, TSH #### [place] [address] .NEUABSon 09-02-2023 Neutrophil, Absolute 4.9 10 3/mcL Normal 2.9-6.2 [facility] ([place]) Comment on above: Performed By: #### L IPID, CBC, CMP, ADIFF, GFR, ANEU, TSH #### [place] [address] CBCon 09-02-2023 Erythrocyte distribution width (RBC) [Ratio] 17.8 % High 11.5-14.5 [facility] ([place]) Comment on above: Performed By: #### L IPID, CBC, CMP, ADIFF, GFR, ANEU, TSH #### [place] [address] Hematocrit (Bld) [Volume fraction] 37.8 % Normal 37.0-47.0 [facility] ([place]) Comment on above: Performed By: #### L IPID, CBC, CMP, ADIFF, GFR, ANEU, TSH #### [place] [address] Hgb 12.5 G/dL Normal 12.0-16.0 [facility] ([place]) Comment on above: Performed By: #### L IPID, CBC, CMP, ADIFF, GFR, ANEU, TSH #### [place] [address] MCH (RBC) [Entitic mass] 32.4 pg High 27.0-31.2 [facility] ([place] Comment on above: Performed By: #### L IPID, CBC, CMP, ADIFF, GFR, ANEU, TSH #### [place] [address] MCHC 33.1 G/dL Normal 33.0-37.0 [facility] ([place] Comment on above: Performed By: #### L IPID, CBC, CMP, ADIFF, GFR, ANEU, TSH #### [place] [address] MCV (RBC) [Entitic vol] 98.0 fL High 80.0-94.0 [facility] ([place] Comment on above: Performed By: #### L IPID, CBC, CMP, ADIFF, GFR, ANEU, TSH #### [address] [address] Platelet 163 10 3/mcL Normal 130-400 [facility] ([place]) Comment on above: Performed By: #### L IPID, CBC, CMP, ADIFF, GFR, ANEU, TSH #### [address] [address] Platelet mean volume (Bld) [Entitic vol] 10.8 fL High 7.4-10.4 [facility] ([place] Comment on above: Performed By: #### L IPID, CBC, CMP, ADIFF, GFR, ANEU, TSH #### [address] [address] RBC 3.86 10 6/mcL Low 4.20-5.40 [facility] ([place]) Comment on above: Performed By: #### L IPID, CBC, CMP, ADIFF, GFR, ANEU, TSH #### [address] [address] WBC 6.6 10 3/mcL Normal 4.6-10.8 [facility] ([place] Comment on above: Performed By: #### L IPID, CBC, CMP, ADIFF, GFR, ANEU, TSH #### [address] [address] CMPon 09-02-2023 Albumin Level 3.5 G/dL Normal 3.5-5.0 [facility] ([place] Comment on above: Performed By: #### L IPID, CBC, CMP, ADIFF, GFR, ANEU, TSH #### [address] [address] Albumin/Globulin [Mass ratio] 1.1 {ratio} Normal 1.1-2.5 [facility] ([place] Comment on above: Performed By: #### L IPID, CBC, CMP, ADIFF, GFR, ANEU, TSH #### [address] [address] ALP [Catalytic activity/Vol] 94 U/L Normal 40-135 [facility] ([place]) Comment on above: Performed By: #### L IPID, CBC, CMP, ADIFF, GFR, ANEU, TSH #### [address] [address] ALT [Catalytic activity/Vol] 37 U/L Normal 14-59 [facility] ([place]) Comment on above: Performed By: #### L IPID, CBC, CMP, ADIFF, GFR, ANEU, TSH #### [address] [address] AST [Catalytic activity/Vol] 28 U/L Normal 10-40 [facility] ([place]) Comment on above: Performed By: #### L IPID, CBC, CMP, ADIFF, GFR, ANEU, TSH #### [address] [address] Bili Total 0.6 mg/dL Normal 0.2-1.0 [facility] ([place]) Comment on above: Result Comment: Use of this assay is not recommended for patients undergoing treatment with eltrombopag due to the potential for falsely elevated results. Performed By: #### L IPID, CBC, CMP, ADIFF, GFR, ANEU, TSH #### [address] [address] BUN/Creatinine Ratio 8 ratio Normal 7-27 [facility] ([place]) Comment on above: Performed By: #### L IPID, CBC, CMP, ADIFF, GFR, ANEU, TSH #### [address] [address] Calcium [Mass/Vol] 8.2 mg/dL Low 8.4-10.2 [facility] ([place]) Comment on above: Performed By: #### L IPID, CBC, CMP, ADIFF, GFR, ANEU, TSH #### [address] [address] Chloride [Moles/Vol] 104 mmol/L Normal 98-107 [facility] ([place]) Comment on above: Performed By: #### L IPID, CBC, CMP, ADIFF, GFR, ANEU, TSH #### [address] [address] CO2 [Moles/Vol] 30 mmol/L High 22-29 [facility] ([place]) Comment on above: Performed By: #### L IPID, CBC, CMP, ADIFF, GFR, ANEU, TSH #### [address] [address] Creatinine [Mass/Vol] 4.66 mg/dL High 0.55-1.02 [facility] ([place]) Comment on above: Performed By: #### L IPID, CBC, CMP, ADIFF, GFR, ANEU, TSH #### [address] [address] Electrolyte Balance 9.0 mEq/L Normal 4.0-15.0 [facility] ([place]) Comment on above: Performed By: #### L IPID, CBC, CMP, ADIFF, GFR, ANEU, TSH #### [address] [address] Globulin 3.2 G/dL Normal [facility] ([place]) Comment on above: Performed By: #### L IPID, CBC, CMP, ADIFF, GFR, ANEU, TSH #### [address] [address] Glucose [Mass/Vol] 92 mg/dL Normal 70-105 [facility] ([place]) Comment on above: Performed By: #### L IPID, CBC, CMP, ADIFF, GFR, ANEU, TSH #### [address] [address] Potassium [Moles/Vol] 4.8 mmol/L Normal 3.5-5.1 [facility] ([place]) Comment on above: Performed By: #### L IPID, CBC, CMP, ADIFF, GFR, ANEU, TSH #### [address] [address] Sodium [Moles/Vol] 143 mmol/L Normal 136-145 [facility] ([place]) Comment on above: Performed By: #### L IPID, CBC, CMP, ADIFF, GFR, ANEU, TSH #### [address] [place], [place] [address] Total Protein 6.7 G/dL Normal 6.4-8.2 [facility] ([place]) Comment on above: Performed By: #### L IPID, CBC, CMP, ADIFF, GFR, ANEU, TSH #### [address] [place], [place] [address] Urea nitrogen [Mass/Vol] 36 mg/dL High 7-18 [facility] ([place]) Comment on above: Performed By: #### L IPID, CBC, CMP, ADIFF, GFR, ANEU, TSH #### [address] [place] [place], [place] [address] LABORATORYOrdered By: SYSTEM SYSTEM on 09-02-2023 Albumin [...] [Mass/Vol] 103 mg/dL Normal 0-200 [facility] ([place]) Comment on above: Result Comment: Chol esterol Reference Interval: Less than 200 Desirable 200-239 Borderline high risk 240 and above High risk Performed By: #### L IPID, CBC, CMP, ADIFF, GFR, ANEU, TSH #### [address] [address] Cholesterol in HDL [Mass/Vol] 41 mg/dL Normal 40-60 [facility] ([place]) Comment on above: Performed By: #### L IPID, CBC, CMP, ADIFF, GFR, ANEU, TSH #### [address] [address] Cholesterol in LDL [Mass/Vol] 40 mg/dL Normal 0-130 [facility] ([place]) Comment on above: Performed By: #### L IPID, CBC, CMP, ADIFF, GFR, ANEU, TSH #### [address] [address] Triglyceride [Mass/Vol] 112 mg/dL Normal 0-150 [facility] ([place]) Comment on above: Result Comment: Trig lyceride Reference Interval: Less than 150 Normal 150-199 Borderline high risk 200-499 High risk 500 or higher Very high risk Performed By: #### L IPID, CBC, CMP, ADIFF, GFR, ANEU, TSH #### [place] [address] TSHon 09-02-2023 TSH Qn 2.61 m[IU]/L Normal 0.36-3.74 [facility] ([place]) Comment on above: Performed By: #### L IPID, CBC, CMP, ADIFF, GFR, ANEU, TSH #### [place] [address] MALBRon 04-30-2023 U Creatinine 195.8 mg/dL High 28.0-117.0 [facility] ([place]) Comment on above: Performed By: #### M ALBR #### [place] [address] U Microalb >[address] Normal [facility] ([place]) Comment on above: Performed By: #### M ALBR #### [place] [address] U Ratio Alb/Cre Unable to Calculate Normal 0-30 [facility] ([place]) Comment on above: Result Comment: Unab le to calculate this test result accurately. Results used to calculate this test are outside the reportable range. Performed By: #### M ALBR #### [place] [address] LABORATORYOrdered By: Alyse Song on 04-29-2023 Albumin [...] smear with manual screening 198 mg/dL 74-106 [facility] Comment on above: MANAGEMENT OF PATIEN T CARE PER NURSING PROTOCOL Basophil percentageOrdered B y: Cipriano Trujillo on 04-24-2023 Chloride [Moles/Vol] 104 mmol/L 98-107 [facility] Glucose [Mass/Vol] 181 mg/dL 74-106 [facility] Comment on above: Fasting Glucose resu lt greater than or equal to 126 mg/dL suggests DIABETES MELLITUS per A.D.A. criteria. Hemoglobin (Bld) [Mass/Vol] 10.9 g/dL 12.0-15.0 [facility] Potassium [Moles/Vol] 4.8 mmol/L 3.5-5.1 [facility] Sodium [Moles/Vol] 137 mmol/L 136-145 [facility] WBC (Bld) [#/Vol] 6.7 10*3/uL 4.4-11.0 [facility] Determination of erythrocyte mean corpuscular volume (MCV)Ordered By: Cipriano Trujillo on 04-24-2023 MCV (RBC) [Entitic vol] 95.9 fL 81-99 [facility] Erythrocyte distribution wid th ratioOrdered By: Cipriano Trujillo on 04-24-2023 Erythrocyte distribution width (RBC) [Ratio] 14.1 % 11.6-14.6 [facility] Erythrocyte distribution wid th standard deviationOrdered By: Cipriano Trujillo on 04-24-2023 Erythrocyte distribution width (RBC) [Entitic vol] 49.1 fL 35.1-43.9 [facility] Hematocrit Auto (Bld) [Volum e fraction]Ordered By: Cipriano Trujillo on 04-24-2023 Hematocrit (Bld) [Volume fraction] 33.1 % 37-47 [facility] Laboratory - Chemistry and C hemistry - challengeOrdered By: Cipriano Trujillo on 04-24-2023 CO2 [Moles/Vol] 27.0 mmol/L 21.0-32.0 [facility] Urea nitrogen/Creatinine [Mass ratio] 9.6 mg/mg 10-20 [facility] Laboratory - Hematology and Cell countsOrdered By: Cipriano Trujillo on 04-24-2023 MCH (RBC) [Entitic mass] 31.6 pg 27.0-32.0 [facility] MCHC (RBC) [Mass/Vol] 32.9 g/dL 32-36 [facility] Platelets (Bld) [#/Vol] 165 10*3/uL 150-450 [facility] No Panel InformationOrdered By: Cipriano Trujillo on 04-24-2023 Estimated GFR (MDRD) Amer 9 mL/min >60 [facility] Comment on above: GFR Calc Estimated GFR (MDRD) Non-Af Amer 8 mL/min >60 [facility] Comment on above: Non- GFR Calc Platelet mean volume Justo-Ec ker (Bld) [Entitic vol]Ordered By: Cipriano Trujillo on 04-24-2023 Platelet mean volume (Bld) [Entitic vol] 12.5 fL 6.2-12.0 [facility] RBC Auto (Bld) [#/Vol]Ordere d By: Cipriano Trujillo on 04-24-2023 RBC (Bld) [#/Vol] 3.45 10*6/uL 4.2-5.4 [place] Serum or plasma calcium brody urement (mass/volume)Ordered By: Cipriano Trujillo on 04-24-2023 Calcium [Mass/Vol] 9.0 mg/dL 8.5-10.1 [facility] Serum or plasma creatinine m easurement (mass/volume)Ordered By: Cipriano Trujillo on 04-24-2023 Creatinine [Mass/Vol] 6.04 mg/dL 0.55-1.02 [facility] Comment on above: The validity of the calculated GFR & GFRAA in patients over 70 years has not been determined. Clinical correlation is essential. Serum or plasma urea nitroge n measurement (mass/volume)Ordered By: Cipriano Trujillo on 04-24-2023 Urea nitrogen [Mass/Vol] 58 mg/dL 7-18 [facility] Thin prep Papanicolaou smear with manual screeningOrdered By: Cipriano Trujillo on 04-24-2023 Thin prep Papanicolaou smear with manual screening 6 5-15 [facility] Glucose Glucometer (BldC) [M ass/Vol]Ordered By: Cipriano Trujillo on 04-07-2023 Glucose [Mass/Vol] 161 mg/dL 74-106 [facility] Comment on above: MANAGEMENT OF PATIEN T CARE PER NURSING PROTOCOL Basophil percentageOrdered B y: iCpriano Trujillo on 04-02-2023 Chloride [Moles/Vol] 106 mmol/L 98-107 [facility] Glucose [Mass/Vol] 80 mg/dL 74-106 [facility] Potassium [Moles/Vol] 4.6 mmol/L 3.5-5.1 [facility] Sodium [Moles/Vol] 142 mmol/L 136-145 [facility] WBC (Bld) [#/Vol] 5.3 10*3/uL 4.4-11.0 [facility] Blood erythrocytes count (nu mber/volume)Ordered By: Cipriano Trujillo on 04-02-2023 RBC (Bld) [#/Vol] 3.56 10*6/uL 4.2-5.4 [place] Blood hemoglobin measurement (mass/volume)Ordered By: Cipriano Trujillo on 04-02-2023 Hemoglobin (Bld) [Mass/Vol] 11.1 g/dL 12.0-15.0 [facility] Blood platelet mean volumeOr dered By: Cipriano Trujillo on 04-02-2023 Platelet mean volume (Bld) [Entitic vol] 12.8 fL 6.2-12.0 [facility] Determination of erythrocyte mean corpuscular volume (MCV)Ordered By: Cipriano Trujillo on 04-02-2023 MCV (RBC) [Entitic vol] 98.3 fL 81-99 [facility] Hematocrit Auto (Bld) [Volum e fraction]Ordered By: Cipriano Trujillo on 04-02-2023 Hematocrit (Bld) [Volume fraction] 35.0 % 37-47 [facility] Laboratory - Chemistry and C hemistry - challengeOrdered By: Cipriano Trujillo on 04-02-2023 CO2 [Moles/Vol] 31.0 mmol/L 21.0-32.0 [facility] Urea nitrogen/Creatinine [Mass ratio] 7.9 mg/mg 10-20 [facility] Laboratory - Hematology and Cell countsOrdered By: Cipriano Trujillo on 04-02-2023 Erythrocyte distribution width (RBC) [Entitic vol] 52.9 fL 35.1-43.9 [facility] Erythrocyte distribution width (RBC) [Ratio] 14.6 % 11.6-14.6 [facility] MCH (RBC) [Entitic mass] 31.2 pg 27.0-32.0 [facility] MCHC Auto (RBC) [Mass/Vol]Or dered By: Cipriano Trujillo on 04-02-2023 MCHC (RBC) [Mass/Vol] 31.7 g/dL 32-36 [facility] No Panel InformationOrdered By: Cipriano Trujillo on 04-02-2023 Estimated GFR (MDRD) Amer 14 mL/min >60 [facility] Comment on above: GFR Calc Estimated GFR (MDRD) Non-Af Amer 11 mL/min >60 [facility] Comment on above: Non- GFR Calc Platelets bldOrdered By: Betty Trujillo on 04-02-2023 Platelets (Bld) [#/Vol] 160 10*3/uL 150-450 [facility] Serum or plasma calcium brody urement (mass/volume)Ordered By: Cipriano Trujillo on 04-02-2023 Calcium [Mass/Vol] 8.4 mg/dL 8.5-10.1 [facility] Serum or plasma creatinine m easurement (mass/volume)Ordered By: Cipriano Trujillo on 04-02-2023 Creatinine [Mass/Vol] 4.29 mg/dL 0.55-1.02 [facility] Comment on above: The validity of the calculated GFR & GFRAA in patients over 70 years has not been determined. Clinical correlation is essential. Serum or plasma urea nitroge n measurement (mass/volume)Ordered By: Cipriano Trujillo on 04-02-2023 Urea nitrogen [Mass/Vol] 34 mg/dL 7-18 [facility] Thin prep Papanicolaou smear with manual screeningOrdered By: Cipriano Trujillo on 04-02-2023 Thin prep Papanicolaou smear with manual screening 5 5-15 [facility] Basophil percentageOrdered B y: Cipriano Trujillo on 01-22-2023 Chloride [Moles/Vol] 106 mmol/L 98-107 [facility] Glucose [Mass/Vol] 127 mg/dL 74-106 [facility] Comment on above: Fasting Glucose resu lt greater than or equal to 126 mg/dL suggests DIABETES MELLITUS per A.D.A. criteria. Potassium [Moles/Vol] 4.9 mmol/L 3.5-5.1 [facility] Sodium [Moles/Vol] 141 mmol/L 136-145 [facility] WBC (Bld) [#/Vol] 7.5 10*3/uL 4.4-11.0 [facility] Blood erythrocytes count (nu mber/volume)Ordered By: Cipriano Trujillo on 01-22-2023 RBC (Bld) [#/Vol] 3.42 10*6/uL 4.2-5.4 [place] Blood hemoglobin measurement (mass/volume)Ordered By: Cipriano Trujillo on 01-22-2023 Hemoglobin (Bld) [Mass/Vol] 10.9 g/dL 12.0-15.0 [facility] Blood platelet mean volumeOr dered By: Cipriano Trujillo on 01-22-2023 Platelet mean volume (Bld) [Entitic vol] 11.6 fL 6.2-12.0 [facility] Determination of erythrocyte mean corpuscular volume (MCV)Ordered By: Cipriano Trujillo on 01-22-2023 MCV (RBC) [Entitic vol] 101.8 fL 81-99 [facility] Hematocrit Auto (Bld) [Volum e fraction]Ordered By: Cipriano Trujillo on 01-22-2023 Hematocrit (Bld) [Volume fraction] 34.8 % 37-47 [facility] Laboratory - Chemistry and C hemistry - challengeOrdered By: Cipriano Trujillo on 01-22-2023 CO2 [Moles/Vol] 28.0 mmol/L 21.0-32.0 [facility] Urea nitrogen/Creatinine [Mass ratio] 12.0 mg/mg 10-20 [facility] Laboratory - Hematology and Cell countsOrdered By: Cipriano Trujillo on 01-22-2023 Erythrocyte distribution width (RBC) [Entitic vol] 57.2 fL 35.1-43.9 [facility] Erythrocyte distribution width (RBC) [Ratio] 15.6 % 11.6-14.6 [facility] MCH (RBC) [Entitic mass] 31.9 pg 27.0-32.0 [facility] MCHC Auto (RBC) [Mass/Vol]Or dered By: Cipriano Trujillo on 01-22-2023 MCHC (RBC) [Mass/Vol] 31.3 g/dL 32-36 [facility] No Panel InformationOrdered By: Cipriano Trujillo on 01-22-2023 Estimated GFR (MDRD) Amer 8 mL/min >60 [facility] Comment on above: GFR Calc Estimated GFR (MDRD) Non-Af Amer 7 mL/min >60 [facility] Comment on above: Non- GFR Calc Platelets bldOrdered By: Betty Trujillo on 01-22-2023 Platelets (Bld) [#/Vol] 153 10*3/uL 150-450 [facility] Serum or plasma calcium brody urement (mass/volume)Ordered By: Cipriano Trujillo on 01-22-2023 Calcium [Mass/Vol] 8.2 mg/dL 8.5-10.1 [facility] Serum or plasma creatinine m easurement (mass/volume)Ordered By: Cipriano Trujillo on 01-22-2023 Creatinine [Mass/Vol] 6.85 mg/dL 0.55-1.02 [facility] Comment on above: The validity of the calculated GFR & GFRAA in patients over 70 years has not been determined. Clinical correlation is essential. Serum or plasma urea nitroge n measurement (mass/volume)Ordered By: Cipriano Trujillo on 01-22-2023 Urea nitrogen [Mass/Vol] 82 mg/dL - [facility] Thin prep Papanicolaou smear with manual screeningOrdered By: Cipriano Trujillo on 01-22-2023 Thin prep Papanicolaou smear with manual screening 7 - [facility] LABORATORYOrdered By: Jazzmine Basilio on 11-18-2022 Glucose [Mass/Vol] 140 mg/dL Invalid Interpretation Code 70 - 110 mg/dL [facility] Work Phone: LABORATORYOrdered By: Jakub Anderson on 10-24-2022 Blood Glucose Testing Reason Routine (10/24/22 4:04 PM) [facility] Work Phone: Glucose [Mass/Vol] 185 mg/dL Invalid Interpretation Code 70 - 110 mg/dL [facility] Work Phone: LABORATORYOrdered By: Jerrell Schmidt on 10-24-2022 Blood Glucose Testing Reason Routine (10/24/22 11:39 AM) [facility] Work Phone: Glucose [Mass/Vol] 154 mg/dL Invalid Interpretation Code 70 - 110 mg/dL [facility] Work Phone: Blood Glucose Testing Reason Routine (10/24/22 8:31 AM) [facility] Work Phone: Glucose [Mass/Vol] 152 mg/dL Invalid Interpretation Code 70 - 110 mg/dL [facility] Work Phone: LABORATORYOrdered By: SYSTEM SYSTEM [...] [Vol rate/Area] 12 ml/min/1.73sqm Invalid Interpretation Code [facility] Comment on above: Interpretive Data: GFR [...] [Vol rate/Area] 10 ml/min/1.73sqm Invalid Interpretation Code [facility] Comment on above: Interpretive Data: GFR [...] [Vol rate/Area] 14 ml/min/1.73sqm Invalid Interpretation Code [facility] Comment on above: Interpretive Data: GFR [...] [Vol rate/Area] 12 ml/min/1.73sqm Invalid Interpretation Code [facility] Comment on above: Interpretive Data: GFR [...] Auto (Unsp spec) [#/Vol] 1.01 10*3/uL 0.83-4.51 [facility] Basophil percentageOrdered B y: Dr. Wyman on 07-23-2022 Basophils/100 WBC (Bld) 0.7 % 0-1 [facility] Chloride [Moles/Vol] 104 mmol/L 98-107 [facility] Eosinophils/100 WBC (Bld) 6.5 % 0-5 [facility] Glucose [Mass/Vol] 143 mg/dL 74-106 [facility] Comment on above: Fasting Glucose resu lt greater than or equal to 126 mg/dL suggests DIABETES MELLITUS per A.D.A. criteria. Neutrophils (Bld) [#/Vol] 4.1 10*3/uL 2.0-7.7 [facility] Neutrophils/100 WBC (Bld) 66.7 % 47-70 [facility] Potassium [Moles/Vol] 3.9 mmol/L 3.5-5.1 [facility] Sodium [Moles/Vol] 137 mmol/L 136-145 [facility] WBC (Bld) [#/Vol] 6.1 10*3/uL 4.4-11.0 [facility] Blood erythrocytes count (nu mber/volume)Ordered By: Dr. Wyman on 07-23-2022 RBC (Bld) [#/Vol] 2.80 10*6/uL 4.2-5.4 [place] Blood hemoglobin measurement (mass/volume)Ordered By: Dr. Wyman on 07-23-2022 Hemoglobin (Bld) [Mass/Vol] 9.2 g/dL 12.0-15.0 [facility] Blood lymphocytes/100 leukoc ytesOrdered By: Dr. Wyman on 07-23-2022 Lymphocytes/100 WBC (Bld) 16.5 % 19-41 [facility] Blood monocytes/100 leukocyt esOrdered By: Dr. Wyman on 07-23-2022 Monocytes/100 WBC (Bld) 8.8 % 0-10 [facility] Blood platelet mean volumeOr dered By: Dr. Wyman on 07-23-2022 Platelet mean volume (Bld) [Entitic vol] 12.7 fL 6.2-12.0 [facility] Determination of erythrocyte mean corpuscular volume (MCV)Ordered By: Dr. Wyman on 07-23-2022 MCV (RBC) [Entitic vol] 102.9 fL 81-99 [facility] Glucose Glucometer (BldC) [M ass/Vol]Ordered By: Dr. Wyman on 07-23-2022 Glucose [Mass/Vol] 118 mg/dL 74-106 [facility] Comment on above: MANAGEMENT OF PATIEN T CARE PER NURSING PROTOCOL Hematocrit Auto (Bld) [Volum e fraction]Ordered By: Dr. Wyman on 07-23-2022 Hematocrit (Bld) [Volume fraction] 28.8 % 37-47 [facility] Laboratory - Chemistry and C hemistry - challengeOrdered By: Dr. Wyman on 07-23-2022 CO2 [Moles/Vol] 28.0 mmol/L 21.0-32.0 [facility] Urea nitrogen/Creatinine [Mass ratio] 6.8 mg/mg 10-20 [facility] Laboratory - Hematology and Cell countsOrdered By: Dr. Wyman on 07-23-2022 Erythrocyte distribution width (RBC) [Entitic vol] 57.8 fL 35.1-43.9 [facility] Erythrocyte distribution width (RBC) [Ratio] 15.6 % 11.6-14.6 [facility] Immature granulocytes/100 WBC (Bld) 0.800 % 0.0-0.9 [facility] Comment on above: IG% - Immature Granu locytes (promyelocytes, myelocytes and metamyelocytes) > 1% indicates that a LEFT SHIFT is Present. MCH (RBC) [Entitic mass] 32.9 pg 27.0-32.0 [facility] Nucleated RBC/100 WBC (Bld) [Ratio] 0 % 0-5 [facility] MCHC Auto (RBC) [Mass/Vol]Or dered By: Dr. Wyman on 07-23-2022 MCHC (RBC) [Mass/Vol] 31.9 g/dL 32-36 [facility] No Panel InformationOrdered By: Dr. Wyman on 07-23-2022 Estimated Creatinine Clearance Calc 9.39 ml/min [facility] Estimated GFR (MDRD) Amer 11 mL/min >60 [facility] Comment on above: GFR Calc Estimated GFR (MDRD) Non-Af Amer 9 mL/min >60 [facility] Comment on above: Non- GFR Calc Platelets bldOrdered By: Dr. Wyman on 07-23-2022 Platelets (Bld) [#/Vol] 179 10*3/uL 150-450 [facility] Serum or plasma calcium brody urement (mass/volume)Ordered By: Dr. Wyman on 07-23-2022 Calcium [Mass/Vol] 8.4 mg/dL 8.5-10.1 [facility] Serum or plasma creatinine m easurement (mass/volume)Ordered By: Dr. Wyman on 07-23-2022 Creatinine [Mass/Vol] 5.29 mg/dL 0.55-1.02 [facility] Comment on above: The validity of the calculated GFR & GFRAA in patients over 70 years has not been determined. Clinical correlation is essential. Serum or plasma urea nitroge n measurement (mass/volume)Ordered By: Dr. Wyman on 07-23-2022 Urea nitrogen [Mass/Vol] 36 mg/dL 7-18 [facility] Thin prep Papanicolaou smear with manual screeningOrdered By: Dr. Wyman on 07-23-2022 Thin prep Papanicolaou smear with manual screening 5 5-15 [facility] Base excessOrdered By: Dr. Elisa grande on 07-22-2022 Base excess Calc (BldV) [Moles/Vol] 9 mmol/L -2-2 [facility] Basophil percentageOrdered B y: Dr. Montenegro on 07-22-2022 Basophil percentage 0-5 SEEN /hpf 0-5 [facility] Basophil percentage 31.9 mmol/L 22- [facility] Basophils/100 WBC (Bld) 97 % 95-99 [facility] Ammonia (P) [Moles/Vol] 43.0 umol/L 11-32 [facility] Bilirubin [Mass/Vol] 0.50 mg/dL 0.20-1.00 [facility] Comment on above: For patients on eltr ombopag therapy, use of Dimension [place] TBIL is not recommended. Protein [Mass/Vol] 6.9 g/dL 6.4-8.2 [facility] Bilirubin Test strip Ql (U)O rdered By: Dr. Montenegro on 07-22-2022 Bilirubin Ql (U) 3 mg/dL Negative [facility] Comment on above: COLOR OF URINE MAY A FFECT DIPSTICK RESULTS. CO2 (BldA) [Partial pressure ]Ordered By: Dr. Montenegro on 07-22-2022 CO2 (Bld) [Partial pressure] 40.0 mm[Hg] 35-45 [facility] Direct bilirubinOrdered By: Dr. Montenegro on 07-22-2022 Bilirubin.direct [Mass/Vol] 0.16 mg/dL 0.00-0.30 [facility] Hyaline casts LM.LPF (Urine sed) [#/Area]Ordered By: Dr. Montenegro on 07-22-2022 Hyaline casts (Urine sed) [#/Area] 10 /[LPF] 0-5 [facility] Ketones Test strip Ql (U)Ord ered By: Dr. Montenegro on 07-22-2022 Ketones Ql (U) 5 mg/dl Negative [facility] Laboratory - Chemistry and C hemistry - challengeOrdered By: Dr. Montenegro on 07-22-2022 ALP [Catalytic activity/Vol] 75 U/L 45-117 [facility] ALT [Catalytic activity/Vol] 92 U/L 13-56 [facility] Globulin (S) [Mass/Vol] 3.5 g/dL 2.2-4.2 [facility] Mucus LM Ql (Urine sed)Order ed By: Dr. Montenegro on 07-22-2022 Mucus Ql (Urine sed) 0 SEEN /hpf [facility] Nitrite Test strip Ql (U)Ord ered By: Dr. Montenegro on 07-22-2022 Nitrite Ql (U) Negative Negative [facility] No Panel InformationOrdered By: Dr. Montenegro on 07-22-2022 Blood Gas Sample Site R Radial [facility] Blood Gas Specimen Type ART [facility] Blood Gas Total CO2 33 mmol/L [place] Oxygen Delivery Device Room Air [facility] Troponin I High Sensitivity 12 pg/mL 3.0-54.0 [facility] Comment on above: Please Note: New [place]ma t Units and Gender Specific Reference Ranges. For more information see Policy Stat Procedure [place] High Sensitivity Troponin (TNIH) and attachments. Oxygen (BldA) [Partial press ure]Ordered By: Dr. Montenegro on 07-22-2022 Oxygen (Bld) [Partial pressure] 80 mmHG 75-100 [facility] Protein Test strip Ql (U)Ord ered By: Dr. Montenegro on 07-22-2022 Protein Ql (U) 100 mg/dl Negative [facility] Serum or plasma albumin brody urement (mass/volume)Ordered By: Dr. Montenegro on 07-22-2022 Albumin [Mass/Vol] 3.4 g/dL 3.2-5.0 [facility] Squamous epithelial cells de tection in urine sediment by light microscopyOrdered By: Dr. Montenegro on 07-22-2022 Epithelial cells.squamous LM Ql (Urine sed) 0 SEEN /hpf 5-10 [facility] Thin prep Papanicolaou smear with manual screeningOrdered By: Dr. Montenegro on 07-22-2022 Thin prep Papanicolaou smear with manual screening 53 U/L 15-37 [facility] Urine blood detectionOrdered By: Dr. Montenegro on 07-22-2022 RBC Ql (U) 10 /ul Negative [facility] RBC Ql (U) 0 SEEN /hpf 0-5 [facility] Urine clarityOrdered By: Dr. Montenegro on 07-22-2022 Clarity (U) Sl. Cloudy Clear [facility] Urine color determinationOrd ered By: Dr. Montenegro on 07-22-2022 Color (U) Yellow Yellow [facility] Urine glucose detectionOrder ed By: Dr. Montenegro on 07-22-2022 Glucose Ql (U) Normal mg/dl Normal [facility] Urine leukocyte esterase det ection by dipstickOrdered By: Dr. Montenegro on 07-22-2022 Leukocyte esterase Test strip Ql (U) 100 /ul Negative [facility] Urine pHOrdered By: Dr. Jonathon lai on 07-22-2022 pH (U) 7.0 [pH] 5.0 - 8.0 [facility] Urine sediment bacteria coun t by microscopy (number/high power field)Ordered By: Dr. Montenegro on 07-22-2022 Bacteria LM.HPF (Urine sed) [#/Area] 0 /[HPF] None Seen [facility] Urine specific gravity measu rementOrdered By: Dr. Montenegro on 07-22-2022 Specific gravity (U) [Rel density] 1.010 1.002-1.030 [facility] Urobilinogen Auto test strip Ql (U)Ordered By: Dr. Montenegro on 07-22-2022 Urobilinogen Ql (U) 1 mg/dl Normal [place] pH measurementOrdered By: Dr Bonita Montenegro on 07-22-2022 pH (Unsp spec) 7.51 [pH] 7.35-7.45 [facility] Absolute lymphocyte countOrd ered By: Amarilys Henao on 07-15-2022 Lymphocytes Auto (Unsp spec) [#/Vol] 0.64 10*3/uL 0.83-4.51 [facility] Basophil percentageOrdered B y: Amarilys Henao on 07-15-2022 Basophil percentage 5.4 mg/dL 2.5-4.9 [place] Basophils/100 WBC (Bld) 0.4 % 0-1 [facility] Chloride [Moles/Vol] 105 mmol/L 98-107 [facility] Eosinophils/100 WBC (Bld) 8.6 % 0-5 [facility] Glucose [Mass/Vol] 102 mg/dL 74-106 [facility] Comment on above: Fasting Glucose resu lt from 100 to 125 mg/dL suggests IMPAIRED HOMEOSTASIS per A.D.A. criteria. Neutrophils (Bld) [#/Vol] 3.3 10*3/uL 2.0-7.7 [facility] Neutrophils/100 WBC (Bld) 69.1 % 47-70 [facility] Potassium [Moles/Vol] 4.2 mmol/L 3.5-5.1 [facility] Sodium [Moles/Vol] 136 mmol/L 136-145 [facility] WBC (Bld) [#/Vol] 4.8 10*3/uL 4.4-11.0 [facility] Blood erythrocytes count (nu mber/volume)Ordered By: Amarilys Henao on 07-15-2022 RBC (Bld) [#/Vol] 2.64 10*6/uL 4.2-5.4 [place] Blood hemoglobin measurement (mass/volume)Ordered By: Amarilys Henao on 07-15-2022 Hemoglobin (Bld) [Mass/Vol] 8.6 g/dL 12.0-15.0 [facility] Blood lymphocytes/100 leukoc ytesOrdered By: Amarilys Henao on 07-15-2022 Lymphocytes/100 WBC (Bld) 13.4 % 19-41 [facility] Blood monocytes/100 leukocyt esOrdered By: Amarilys Henao on 07-15-2022 Monocytes/100 WBC (Bld) 8.1 % 0-10 [facility] Blood platelet mean volumeOr dered By: Amarilys Henao on 07-15-2022 Platelet mean volume (Bld) [Entitic vol] 13.6 fL 6.2-12.0 [facility] Determination of erythrocyte mean corpuscular volume (MCV)Ordered By: Amarilys Henao on 07-15-2022 MCV (RBC) [Entitic vol] 101.1 fL 81-99 [facility] Glucose Glucometer (dC) [M ass/Vol]Ordered By: Dr. Dunn on 07-15-2022 Glucose [Mass/Vol] 221 mg/dL 74-106 [facility] Comment on above: MANAGEMENT OF PATIEN T CARE PER NURSING PROTOCOL Hematocrit Auto (Bld) [Volum e fraction]Ordered By: Amarilys Henao on 07-15-2022 Hematocrit (Bld) [Volume fraction] 26.7 % 37-47 [facility] Laboratory - Chemistry and C hemistry - challengeOrdered By: Amarilys Henao on 07-15-2022 CO2 [Moles/Vol] 26.0 mmol/L 21.0-32.0 [facility] Urea nitrogen/Creatinine [Mass ratio] 10.0 mg/mg 10-20 [facility] Laboratory - Hematology and Cell countsOrdered By: Amarilys Henao on 07-15-2022 Erythrocyte distribution width (RBC) [Entitic vol] 54.9 fL 35.1-43.9 [facility] Erythrocyte distribution width (RBC) [Ratio] 15.1 % 11.6-14.6 [facility] Immature granulocytes/100 WBC (Bld) 0.400 % 0.0-0.9 [facility] Comment on above: IG% - Immature Granu locytes (promyelocytes, myelocytes and metamyelocytes) > 1% indicates that a LEFT SHIFT is Present. MCH (RBC) [Entitic mass] 32.6 pg 27.0-32.0 [facility] Nucleated RBC/100 WBC (Bld) [Ratio] 0 % 0-5 [facility] MCHC Auto (RBC) [Mass/Vol]Or dered By: Amarilys Henao on 07-15-2022 MCHC (RBC) [Mass/Vol] 32.2 g/dL 32-36 [facility] Microbial respiratory cultur eOrdered By: Dr. Wyman on 07-15-2022 Bacteria identified Respiratory culture Nom (Unsp spec) or Staphylococcus aureus isolated. [facility] No Panel InformationOrdered By: Amarilys Henao on 07-15-2022 Estimated Creatinine Clearance Calc 6.61 ml/min [facility] Estimated GFR (MDRD) Amer 8 mL/min >60 [facility] Comment on above: GFR Calc Estimated GFR (MDRD) Non-Af Amer 6 mL/min >60 [facility] Comment on above: Non- GFR Calc Platelets bldOrdered By: Armen Henao on 07-15-2022 Platelets (Bld) [#/Vol] 97 10*3/uL 150-450 [facility] Serum or plasma albumin brody urement (mass/volume)Ordered By: Amarilys Henao on 07-15-2022 Albumin [Mass/Vol] 2.7 g/dL 3.2-5.0 [facility] Serum or plasma calcium brody urement (mass/volume)Ordered By: Amarilys Henao on 07-15-2022 Calcium [Mass/Vol] 7.7 mg/dL 8.5-10.1 [facility] Serum or plasma creatinine m easurement (mass/volume)Ordered By: Amarilys Henao on 07-15-2022 Creatinine [Mass/Vol] 7.17 mg/dL 0.55-1.02 [facility] Comment on above: The validity of the calculated GFR & GFRAA in patients over 70 years has not been determined. Clinical correlation is essential. Serum or plasma urea nitroge n measurement (mass/volume)Ordered By: Amarilys Henao on 07-15-2022 Urea nitrogen [Mass/Vol] 72 mg/dL 7-18 [facility] Basophil percentageOrdered B y: Dr. Wyman on 07-13-2022 Basophil percentage 0-5 SEEN /hpf 0-5 [facility] Bilirubin Test strip Ql (U)O rdered By: Dr. Wyman on 07-13-2022 Bilirubin Ql (U) 1 mg/dL Negative [facility] Comment on above: COLOR OF URINE MAY A FFECT DIPSTICK RESULTS. Gram stain for investigation of transfusion reactionOrdered By: Dr. Wyman on 07-13-2022 Microscopic observation Gram stain Nom (Unsp spec) [facility] Ketones Test strip Ql (U)Ord ered By: Dr. Wyman on 07-13-2022 Ketones Ql (U) Negative Negative [facility] Mucus LM Ql (Urine sed)Order ed By: Dr. Wyman on 07-13-2022 Mucus Ql (Urine sed) 0 SEEN /hpf [facility] Nitrite Test strip Ql (U)Ord ered By: Dr. Wyman on 07-13-2022 Nitrite Ql (U) Negative Negative [facility] No Panel InformationOrdered By: Dr. Wyman on 07-13-2022 Streptococcus pneumoniae Antigen (M [facility] Protein Test strip Ql (U)Ord ered By: Dr. Wyman on 07-13-2022 Protein Ql (U) 100 mg/dl Negative [facility] Squamous epithelial cells de tection in urine sediment by light microscopyOrdered By: Dr. Wyman on 07-13-2022 Epithelial cells.squamous LM Ql (Urine sed) 0-5 SEEN /hpf 5-10 [facility] Urine Legionella pneumophila antigen detectionOrdered By: Dr. Wyman on 07-13-2022 L. pneumophila Ag Ql (U) [facility] Urine blood detectionOrdered By: Dr. Wyman on 07-13-2022 RBC Ql (U) Negative Negative [facility] RBC Ql (U) 0 SEEN /hpf 0-5 [facility] Urine clarityOrdered By: Dr. Wyman on 07-13-2022 Clarity (U) Sl. Cloudy Clear [facility] Urine color determinationOrd ered By: Dr. Wyman on 07-13-2022 Color (U) Yellow Yellow [facility] Urine glucose detectionOrder ed By: Dr. Wyman on 07-13-2022 Glucose Ql (U) Normal mg/dl Normal [facility] Urine leukocyte esterase det ection by dipstickOrdered By: Dr. Wyman on 07-13-2022 Leukocyte esterase Test strip Ql (U) 25 /ul Negative [facility] Urine pHOrdered By: Dr. Claudia gardiner on 07-13-2022 pH (U) 7.0 [pH] 5.0 - 8.0 [facility] Urine sediment bacteria coun t by microscopy (number/high power field)Ordered By: Dr. Wyman on 07-13-2022 Bacteria LM.HPF (Urine sed) [#/Area] 1 /[HPF] None Seen [facility] Urine specific gravity measu rementOrdered By: Dr. Wyman on 07-13-2022 Specific gravity (U) [Rel density] 1.010 1.002-1.030 [facility] Urobilinogen Auto test strip Ql (U)Ordered By: Dr. Wyman on 07-13-2022 Urobilinogen Ql (U) Normal mg/dl Normal [facility] Absolute lymphocyte countOrd ered By: Kamlesh Muhammad on 07-12-2022 Lymphocytes Auto (Unsp spec) [#/Vol] 0.54 10*3/uL 0.83-4.51 [facility] Basophil percentageOrdered B y: Kamlesh Muhammad on 07-12-2022 Basophils/100 WBC (Bld) 0.3 % 0-1 [facility] Chloride [Moles/Vol] 102 mmol/L 98-107 [facility] Eosinophils/100 WBC (Bld) 3.1 % 0-5 [facility] Glucose [Mass/Vol] 186 mg/dL 74-106 [facility] Comment on above: Fasting Glucose resu lt greater than or equal to 126 mg/dL suggests DIABETES MELLITUS per A.D.A. criteria. Neutrophils (Bld) [#/Vol] 5.5 10*3/uL 2.0-7.7 [facility] Neutrophils/100 WBC (Bld) 76.5 % 47-70 [facility] Potassium [Moles/Vol] 4.1 mmol/L 3.5-5.1 [facility] Sodium [Moles/Vol] 139 mmol/L 136-145 [facility] WBC (Bld) [#/Vol] 7.2 10*3/uL 4.4-11.0 [facility] Blood erythrocytes count (nu mber/volume)Ordered By: Kamlesh Muhammad on 07-12-2022 RBC (Bld) [#/Vol] 2.80 10*6/uL 4.2-5.4 [place] Blood hemoglobin measurement (mass/volume)Ordered By: Kamlesh Muhammad on 07-12-2022 Hemoglobin (Bld) [Mass/Vol] 9.2 g/dL 12.0-15.0 [facility] Blood lymphocytes/100 leukoc ytesOrdered By: Kamlesh Muhammad on 07-12-2022 Lymphocytes/100 WBC (Bld) 7.6 % 19-41 [facility] Blood monocytes/100 leukocyt esOrdered By: Kamlesh Muhammad on 07-12-2022 Monocytes/100 WBC (Bld) 12.2 % 0-10 [facility] Blood platelet mean volumeOr dered By: Kamlesh Muhammad on 07-12-2022 Platelet mean volume (Bld) [Entitic vol] 12.2 fL 6.2-12.0 [facility] Determination of erythrocyte mean corpuscular volume (MCV)Ordered By: Kamlesh Muhammad on 07-12-2022 MCV (RBC) [Entitic vol] 101.4 fL 81-99 [facility] HCO3 (BldA) [Moles/Vol]Order ed By: Dr. Talley on 07-12-2022 HCO3 (Bld) [Moles/Vol] 33 mmol/L 22-26 [facility] Hematocrit Auto (Bld) [Volum e fraction]Ordered By: Kamlesh Muhammad on 07-12-2022 Hematocrit (Bld) [Volume fraction] 28.4 % 37-47 [facility] INR in Blood by Coagulation assayOrdered By: Kamlesh Muhammad on 07-12-2022 INR Coag (Bld) [Relative time] 1.2 {INR} [facility] Influenza virus A and B and SARS-CoV-2 (COVID-19) Ag panel - Upper respiratory specimOrdered By: Kamlesh Muhammad on 07-12-2022 SARS-CoV-2 (COVID-19) RNA YANI+probe Ql (Resp) [facility] Laboratory - Chemistry and C hemistry - challengeOrdered By: Dr. Talley on 07-12-2022 CO2 [Moles/Vol] 34 mmol/L 23-33 [facility] Laboratory - Chemistry and C hemistry - challengeOrdered By: Kamlesh Muhammad on 07-12-2022 CO2 [Moles/Vol] 36.0 mmol/L 21.0-32.0 [facility] Urea nitrogen/Creatinine [Mass ratio] 6.3 mg/mg 10-20 [facility] Laboratory - CoagulationOrde red By: Kamlesh Muhammad on 07-12-2022 PT Coag (PPP) [Time] 15.2 s 11.7-14.9 [facility] - Hematology and Cell countsOrdered By: Kamlesh Muhammad on 07-12-2022 Erythrocyte distribution width (RBC) [Entitic vol] 55.9 fL 35.1-43.9 [facility] Erythrocyte distribution width (RBC) [Ratio] 15.4 % 11.6-14.6 [facility] Immature granulocytes/100 WBC (Bld) 0.300 % 0.0-0.9 [facility] Comment on above: IG% - Immature Granu locytes (promyelocytes, myelocytes and metamyelocytes) > 1% indicates that a LEFT SHIFT is Present. MCH (RBC) [Entitic mass] 32.9 pg 27.0-32.0 [facility] Nucleated RBC/100 WBC (Bld) [Ratio] 0 % 0-5 [facility] MCHC Auto (RBC) [Mass/Vol]Or dered By: Kamlesh Muhammad on 07-12-2022 MCHC (RBC) [Mass/Vol] 32.4 g/dL 32-36 [facility] No Panel InformationOrdered By: Dr. Talley on 07-12-2022 Bed Mix Venous Bld PCO2 at Pat Temp 43.0 mmHg 41-51 [facility] Blood Gas Specimen Type SARAH [facility] Oxygen Delivery Device Room Air [facility] Venous Blood Base Excess 9 mmol/L -1.0-3.5 [facility] No Panel InformationOrdered By: Kamlesh Muhammad on 07-12-2022 Estimated Creatinine Clearance Calc 12.92 ml/min [facility] Estimated GFR (MDRD) Amer 16 mL/min >60 [facility] Comment on above: GFR Calc Estimated GFR (MDRD) Non-Af Amer 14 mL/min >60 [facility] Comment on above: Non- GFR Calc PO2 venousOrdered By: Dr. Ray comer on 07-12-2022 Oxygen (BldV) [Partial pressure] 42 mm[Hg] 25-40 [facility] Platelets bldOrdered By: Tiffanie Muhammad on 07-12-2022 Platelets (Bld) [#/Vol] 105 10*3/uL 150-450 [facility] Serum or plasma calcium brody urement (mass/volume)Ordered By: Kamlesh Muhammad on 07-12-2022 Calcium [Mass/Vol] 8.5 mg/dL 8.5-10.1 [facility] Serum or plasma creatinine m easurement (mass/volume)Ordered By: Kamlesh Muhammad on 07-12-2022 Creatinine [Mass/Vol] 3.67 mg/dL 0.55-1.02 [facility] Comment on above: The validity of the calculated GFR & GFRAA in patients over 70 years has not been determined. Clinical correlation is essential. Serum or plasma urea nitroge n measurement (mass/volume)Ordered By: Kamlesh Muhammad on 07-12-2022 Urea nitrogen [Mass/Vol] 23 mg/dL 7-18 [facility] Thin prep Papanicolaou smear with manual screeningOrdered By: Kamlesh Muhammad on 07-12-2022 Thin prep Papanicolaou smear with manual screening 1 -15 [facility] Vital signsOrdered By: Dr. Navdeep paulino on 07-12-2022 Oxygen saturation in Blood 81 % 50-70 [facility] pH measurementOrdered By: Dr Bonita Talley on 07-12-2022 pH (Unsp spec) 7.49 [pH] 7.32-7.42 [facility] LABORATORYOrdered By: Tobi Andersen on 04-15-2022 [...] Invalid Interpretation Code 70 - 110 mg/dL [facility] Work Phone: LABORATORYOrdered By: SYSTEM SYSTEM [...] Invalid Interpretation Code 70 - 110 mg/dL [facility] Work Phone: LABORATORYOrdered By: Delores Rose on 12-15-2021 Glucose [Mass/Vol] 332 mg/dL Invalid Interpretation Code 70 - 110 mg/dL [facility] Work Phone: LABORATORYOrdered By: Davie tai on 12-15-2021 Glucose [Mass/Vol] 306 mg/dL Invalid Interpretation Code 70 - 110 mg/dL [facility] Work Phone: LABORATORYOrdered By: SYSTEM SYSTEM [...] Invalid Interpretation Code 136 - 145 mEq/L [facility] LABORATORYOrdered By: Brian craft on 12-14-2021 Blood Glucose Testing Reason Routine (12/14/21 5:29 PM) [facility] Work Phone: Time of Stated Blood Glucose [phone] [facility] Work Phone: LABORATORYOrdered By: Raisa Gilliland on 12-14-2021 Blood Glucose Testing Reason Routine (12/14/21 12:28 PM) [facility] Work Phone: Time of Stated Blood Glucose [phone] [facility] Work Phone: LABORATORYOrdered By: SYSTEM SYSTEM [...] Glucose Testing Reason Routine (12/13/21 9:52 PM) [facility] Work Phone: LABORATORYOrdered By: SYSTEM SYSTEM [...] definite cause of disease. Laboratories within the [place] and its territories are required to [...] Code AH Auto Viro/Sero SS B. parapertussis [id number] DNA YANI+non-probe Ql (Nph) Not Detected *NA* [...] Detected AH Auto Viro/Sero SS LABORATORYOrdered By: Jakcie Yarbrough on 12-11-2021 Calcium [Mass/Vol] 8.4 mg/dL [...] 09-25 AUTOCROSSMATCH, FLOW SEE SEPARATE REPORT Normal [facility] Comment on above: Result Comment: Test performed at [facility], [address] [place] [address] Performed By: #### V ARZG #### [facility] [address] [facility] [place] [address] HLA CLASS I AB SCREEN,FCon 0 09-25-2021 HLA CLASS I AB SCREEN,FC SEE COMMENT Normal [facility] Comment on above: Result Comment: HLA CLASS I AB SCREEN,FLOW CYTOMETRY SEE SEPARATE REPORT. Test performed at [facility], [address]th [id number] [place] [address] Performed By: #### V ARZG #### [facility] [address] [facility] [place] [id number] HLA CLASS II AB SCREEN,FCon 09-25-2021 HLA CLASS II AB SCREEN,FC SEE COMMENT Normal [facility] Comment on above: Result Comment: HLA CLASS II AB SCREEN,FLOW CYTOMETRY SEE SEPARATE REPORT. Test performed at [facility], 6th [address] [address] [place] [address] Performed By: #### V ARZG #### [facility] [address] [facility] [place] [id number] HLA-A,B,C LRon 09-25-2021 HLA-A LOCUS LR TYPE SEE COMMENT Normal [facility] Comment on above: Result Comment: HLA- A LOCUS, LOW RESOLUTION TYPE SEE SEPARATE REPORT. Performed By: #### D N1LR #### [facility] [address] [place] [id number] HLA-B LOCUS LR TYPE SEE COMMENT Normal [facility] Comment on above: Result Comment: HLA- B LOCUS, LOW RESOLUTION TYPE SEE SEPARATE REPORT. Performed By: #### D N1LR #### [facility] [address] [place] [id number] HLA-C LOCUS LR TYPE SEE COMMENT Normal [facility] Comment on above: Result Comment: HLA- C LOCUS, LOW RESOLUTION TYPE SEE SEPARATE REPORT. Test performed at [facility] Laboratory [facility], [address] [place] [address] Performed By: #### D N1LR #### [facility] [address] [facility] [place] [id number] HLA-DPB1 HR TYPINGon 022 HLA-DPB1 HR TYPING SEE COMMENT Normal [facility] Comment on above: Result Comment: HLA- DPB1 HIGH RESOLUTION TYPING SEE SEPARATE REPORT. Test performed at [facility], [address] [place] [address] Performed By: #### H BAB3 #### [facility] [address] [facility] [place] [id number] HLA-DQB1 HR TYPINGon 022 HLA-DQB1 HR TYPING SEE COMMENT Normal [facility] Comment on above: Result Comment: HLA- DQB1 HIGH RESOLUTION TYPING SEE SEPARATE REPORT. Test performed at [facility], 6th [address] [address] [place] [address] Performed By: #### D QBHT #### [facility] [address] [facility] [address] HLA-DRB1/3/4/5 AND DQB1 LR T YPINGon 09-25-2021 HLA-DRB1/3/4/5 & DQB1 LR TYPING SEE COMMENT Normal [facility] Comment on above: Result Comment: HLA- DRB1/3/4/5 AND DQB1 LOW RESOLUTION TYPING SEE SEPARATE REPORT. Test performed at [facility], 6[facility] [address] [place] [address] Performed By: #### Ramón ARZG #### [facility] [address] [facility] [place] [address] DRUG-PROFILE 9,BLOOD WITH RE FLEX TO CONFIRMATIONon 09-03-2021 AMPHETAMINES SCREEN Negative Normal [facility] 20 [facility] Comment on above: Performed By: #### D S7LC #### [facility] [address] [place] [address] BARBITURATES SCREEN Negative Normal [address] [facility] Comment on above: Performed By: #### Seamus S7LC #### [facility] [address] [place] [address] BENZODIAZEPINES SCREEN Negative Normal [address] [facility] Comment on above: Performed By: #### Seamus S7LC #### [facility] [address] [place] [address] BUPRENORPHINE SCREEN Negative Normal Cut[facility] 1 [facility] Comment on above: Performed By: #### Seamus S7LC #### [facility] [address] [place] [address] CANNABINOID SCREEN Negative Normal [address] [facility] Comment on above: Performed By: #### Seamus S7LC #### [facility] [address] [place] [address] COCAINE SCREEN Negative Normal [address] [facility] Comment on above: Performed By: #### Seamus S7LC #### [facility] [address] [place] [address] DRUG SCREEN COMMENT See Note Normal [facility] Comment on above: Result Comment: INTE RPRETIVE [...] developed and its performance characteristics determined by [facility]. It has not been cleared or approved by the [place] Food and Drug Administration. This test was performed in a CLIA certified laboratory and is intended for clinical purposes. Performed By: [facility] [address] [place] [address] Engineer: Eboni Izquierdo MD Performed By: #### Seamus S7LC #### [email or web address] [address] [place] [address] METHADONE SCREEN Negative Normal [address] [facility] Comment on above: Performed By: #### Seamus S7LC #### [facility] [address] [place] [address] METHAMPHETAMINES SCREEN Negative Normal [address] [facility] Comment on above: Performed By: #### Seamus S7LC #### [facility] [address] [place] [address] OPIATE SCREEN Negative Normal [address] [facility] Comment on above: Performed By: #### Seamus S7LC #### [facility] [address] [place] [address] OXYCODONE SCREEN Negative Normal [address] 20 [facility] Comment on above: Performed By: #### Seamus S7LC #### [facility] [address] [place] [address] PCP SCREEN Negative Normal Cut[address] 10 [facility] Comment on above: Performed By: #### Seamus S7LC #### [facility] [address] [place] [address] NICOTINE+METABOLITES,Son [id number] <2 Normal [facility] Comment on above: Performed By: #### N I+ME #### [facility] [address] [place] [address] COTININE <2 Normal [facility] Comment on above: Performed By: #### N I+ME #### [facility] [address] [place] [address] NICOTINE <2 Normal [facility] Comment on above: Result Comment: Cons istent [...] developed and its performance characteristics determined by [facility]. It has not been cleared or approved by the [place] Food and Drug Administration. This test was performed in a CLIA certified laboratory and is intended for clinical purposes. Performed By: [facility] [address] [place] [address] Engineer: Eboni Izquierdo MD Performed By: #### N I+ME #### [facility] [address] [place] [address] T-SPOT TBon 09-02-2021 NIL[NEG]CONTROL SPOT COUNT Passed Normal [facility] Comment on above: Performed By: #### T SPOT #### [facility] [address] [place] [address] PANEL A SPOT COUNT 1 Normal [facility] Comment on above: Performed By: #### T SPOT #### [facility] [address] [place] [address] PANEL B SPOT COUNT 0 Normal [facility] Comment on above: Performed By: #### T SPOT #### [facility] [address] [place] [address] POS CONTROL SPOT COUNT Passed Normal [facility] Comment on above: Performed By: #### T SPOT #### [facility] [address] [place] [address] T-SPOT.TB INTERP Negative Normal Normal Value: Negative [facility] Comment on above: Result Comment: A ne [...] test. Performed By: #### T SPOT #### [facility] [address] [place] [address] ABO/RH GROUP TESTon 08-31-19 ABO TYPE O Normal [facility] Comment on above: Performed By: #### H BAB3 #### [facility] [address] [place] [address] RH TYPE Positive Normal [facility] Comment on above: Performed By: #### H BAB3 #### [facility] [address] [place] [id number] AUTOCROSSMATCH, FLOWon 08-30 AUTOCROSSMATCH, FLOW Canceled Normal [facility] Comment on above: Order Comment: TEST AUTOCROSSMATCH, FLOW WAS CANCELLED, 08/30/2021 15:15 ordered under wrongvisit, reordered. please do not redraw. Result Comment: Test performed at [facility], [address] [address] [place] [address] Performed By: #### H BAB3 #### [facility] [address] [place] [id number] Blood Typing (ABO + Rho D)on 08-30-2021 ABO group Nom (Bld) O [facility] 2100 Work Phone: Rh immune globulin screen (Bld) [Interp] Positive [facility] Work Phone: C PEPTIDEon 08-30-2021 C PEPTIDE 3.2 ng/mL Normal 0.7 - 3.9 [facility] Comment on above: Performed By: #### Ramón ESPINAL #### [facility] [address] [place] [address] C Peptide, Serumon 2 C peptide [Mass/Vol] 3.2 ng/mL 0.7 - 3.9 [facility] [address] Work Phone: CBCon 08-30-2021 Erythrocyte distribution width (RBC) [Ratio] 13.2 % Normal 11.5 - 14.5 [facility] Comment on above: Performed By: #### Ramón ESPINAL #### [facility] [address] [place] [address] Hematocrit (Bld) [Volume fraction] 35.8 % Low 36.0 - 46.0 [facility] Comment on above: Performed By: #### Ramón ESPINAL #### [facility] [address] [place] [address] Hemoglobin (Bld) [Mass/Vol] 11.9 g/dL Low 12.0 - 16.0 [facility] Comment on above: Performed By: #### Ramón ESPINAL #### [facility] [address] [place] [address] MCHC (RBC) [Mass/Vol] 33.2 g/dL Normal 32.0 - 36.0 [facility] Comment on above: Performed By: #### Ramón ESPINAL #### [facility] [address] [place] [address] MCV (RBC) [Entitic vol] 95 fL Normal 80 - 100 [facility] Comment on above: Performed By: #### Ramón ESPINAL #### [facility] [address] [place] [address] NUCLEATED RBC 0.0 /100 WBC Normal 0.0-0.0 [facility] Comment on above: Performed By: #### Ramón ESPINAL #### [facility] [address] [place] [address] Platelets (Bld) [#/Vol] 168 10*3/uL Normal 150 - 450 [facility] Comment on above: Performed By: #### V ARZG #### [facility] [address] [place] [address] RBC 3.76 x10E12/L Low 4.00 - 5.20 [facility] Comment on above: Performed By: #### V ARZG #### [facility] [address] [place] [address] WBC (Bld) [#/Vol] 6.9 10*3/uL Normal 4.4 - 11.3 [facility] Comment on above: Performed By: #### V ARZG #### [facility] [address] [place] [address] CMV IGGon 08-30-2021 CMV IGG AB Non-Reactive Normal NONREACTIVE [facility] Comment on above: Performed By: #### H BAB3 #### [facility] [address] [place] [address] CMV IgGon 08-30-2021 CMV IgG Non-Reactive See Below [facility] 2100 Work Phone: Comment on above: SOURCE: [...] [Mass/Vol] 3.99 mg/dL High 0.50 - 1.05 [facility] Comment on above: Performed By: #### V ARZG #### [facility] [address] [place] [address] GFR/1.73 sq M.predicted among non-blacks MDRD (S/P/Bld) [Vol rate/Area] 13 mL/min/{1.73_m2} Abnormal >90 [facility] Comment on above: Result Comment: CALC ULATIONS OF ESTIMATED GFR ARE PERFORMED USING THE 2020 CKD-EPI STUDY REFIT EQUATION WITHOUT THE RACE VARIABLE FOR THE IDMS-TRACEABLE CREATININE METHODS. https://jasn.asnjournals.org/content/early/ASN.38130 72371 Performed By: #### V ARZG #### [facility] [address] [place] [address] Creatinine, Serumon 08-31-19 Creatinine [Mass/Vol] 3.99 mg/dL [...] RACE VARIABLE FOR THE IDMS-TRACEABLE CREATININE METHODS.https://jasn.asnjournals.org/content//A SN.4445942134 EBV PANELon 08-30-2021 VCA IGM ANTIBODY Negative Normal NEGATIVE [facility] Comment on above: Performed By: #### T SPOT #### [facility] [address] [place] [address] EBV EA-D IGG ANTIBODY Negative Normal NEGATIVE [facility] Comment on above: Performed By: #### T SPOT #### [facility] [address] [place] [address] EBV INTERPRETATION SEE BELOW Normal [facility] Comment on above: Result Comment: . EB V INTERPRETATION CHART . VCA-IGG VCA-IGM NA-IGG EA-IGG . PRIMARY ACUTE +/- +/- - +/- LATE ACUTE + +/- +/- +/- RECOVERING + - - + PREVIOUS INFECTION + - +/- - Performed By: #### T SPOT #### [facility] [address] [place] [address] EBV NA-1 IGG ANTIBODY Positive Abnormal NEGATIVE [facility] Comment on above: Performed By: #### T SPOT #### [facility] [address] [place] [address] VCA IGG ANTIBODY Positive Abnormal NEGATIVE [facility] Comment on above: Performed By: #### T SPOT #### [facility] [address] [place] [address] Established Visit (Nephrolog y)on 08-30-2021 Established Visit (Nephrology) No report was sent Normal [facility] HEMOGLOBIN A1Con 08-30-2021 Glucose [Mass/Vol] 100 mg/dL Normal [facility] Comment on above: Performed By: #### T SPOT #### [facility] [address] [place] [address] HbA1c (Bld) [Mass fraction] 5.1 % Normal [facility] Comment on above: Result Comment: Diag nosis of Diabetes-Adults Non-Diabetic: < or = 5.6% Increased risk for developing diabetes: 5.7-6.4% Diagnostic of diabetes: > or = 6.5% . Monitoring of Diabetes Age (y) Therapeutic Goal (%) Adults: >18 <7.0 Pediatrics: 13-18 <7.5 7-12 <8.0 0- 6 7.5-8.5 [employer]. Diabetes Care 33(S1), Mar 2009. Performed By: #### T SPOT #### [facility] [address] [place] [address] HEPATIC FUNCTION PANELon Albumin [Mass/Vol] 4.3 g/dL Normal 3.4 - 5.0 [facility] Comment on above: Performed By: #### V ARZG #### [facility] [address] [place] [address] ALP [Catalytic activity/Vol] 73 U/L Normal 33 - 110 [facility] Comment on above: Performed By: #### V ARZG #### [facility] [address] [place] [address] ALT [Catalytic activity/Vol] 34 U/L Normal 7 - 45 [facility] Comment on above: Result Comment: Angela ents treated with Sulfasalazine may generate falsely decreased results for ALT. Performed By: #### V ARZG #### [facility] [address] [place] [address] AST [Catalytic activity/Vol] 37 U/L Normal 9 - 39 [facility] Comment on above: Performed By: #### V ARZG #### [facility] [address] [place] [address] Bilirubin [Mass/Vol] 0.6 mg/dL Normal 0.0 - 1.2 [facility] Comment on above: Performed By: #### V ARZG #### [facility] [address] [place] [address] Bilirubin.indirect [Mass/Vol] 0.1 mg/dL Normal 0.0 - 0.3 [facility] Comment on above: Performed By: #### V ARZG #### [facility] [address] [place] [address] Protein [Mass/Vol] 7.1 g/dL Normal 6.4 - 8.2 [facility] Comment on above: Performed By: #### V ARZG #### [facility] [address] [place] [address] HEPATITIS B CORE AB-TOTALon 08-30-2021 HEP. B CORE AB-TOTAL Non-Reactive Normal NONREACTIVE [facility] Comment on above: Result Comment: Resu lts from patients taking biotin supplements or receiving high-dose biotin therapy should be interpreted with caution due to possible interference with this test. Providers may contact their local laboratory for further information. Performed By: #### H BAB3 #### [facility] [address] [place] [address] HEPATITIS B SURF ABon 2021 HEP B SURF AB <3.1 Normal <10 [facility] Comment on above: Result Comment: INTE RPRETIVE CRITERIA: <10 mIU/mL....NONREACTIVE >=10 mIU/mL...REACTIVE . Biotin interference may cause falsely decreased results. Patients taking a Biotin dose of up to 5 mg/day should refrain from taking Biotin for 24 hours before sample collection. Providers may contact their local laboratory for further information. Performed By: #### H BAB3 #### [facility] [address] [place], [place] Lab Specimen Source Normal [facility] Comment on above: Performed By: #### H BAB3 #### [facility] [address] [place] Performed By: #### V ARZG #### [facility] [address] [place], [place] Performed By: #### H BSAG #### [facility] [facility] [address] [place], [place] Performed By: #### H IV #### [facility] [address] [place], [place] Performed By: #### T SPOT #### [employer] [address] [place] [address] HEPATITIS B SURFACE AGon HEP.B SURFACE AG Non-Reactive Normal NONREACTIVE [facility] Comment on above: Result Comment: Biot in interference may cause falsely decreased results. Patients taking a Biotin dose of up to 5 mg/day should refrain from taking Biotin for 24 hours before sample collection. Providers may contact their local laboratory for further information. Performed By: #### H BSAG #### [facility] [address] [place], [place] HEPATITIS C ABon 08-30-2021 HEPATITIS C AB Non-Reactive Normal NONREACTIVE [facility] Comment on above: Result Comment: Resu lts from patients taking biotin supplements or receiving high-dose biotin therapy should be interpreted with caution due to possible interference with this test. Providers may contact their local laboratory for further information. Performed By: #### H BAB3 #### [facility] [address] [place], [place] HIV 1/2 ANTIGEN/ANTIBODY SCR EEN WITH REFLEX TO CONFIRMATIONon 08-30-2021 HIV 1/2 AG/AB SCREEN Non-Reactive Normal NONREACTIVE [facility] Comment on above: Result Comment: HIV Ag/Ab screen is performed using the Siemens FleckllMoveline HIV Ag/Ab Combo assay which detects the presence of HIV p24 antigen as well as antibodies to HIV-1 (Group M and O) and HIV-2. . No laboratory evidence of HIV infection. If acute HIV infection is suspected, consider testing for HIV RNA by PCR (viral load). Performed By: #### H IV #### [facility] [address] [place] [address] HIV 1+2 Ab Qn (S) Non-Reactive See Below [facility] 2100 Work Phone: Comment on above: SOURCE: Reference Ra nge: NONREACTIVE HIV Ag/Ab screen is performed using the Siemens AtellMoveline HIV Ag/Ab Combo assay which detects the presence of HIV p24 antigen as well as antibodies to HIV-1 (Group M and O) and HIV-2..No laboratory evidence of HIV infection. If acute HIV infection is suspected, consider testing for HIV RNA by PCR (viral load). HLA CLASS I AB SCREEN,FCon 0 08-30-2021 HLA CLASS I AB SCREEN,FC Canceled Normal [facility] Comment on above: Order Comment: TEST HLA CLASS I AB SCREEN,FC WAS CANCELLED, 08/30/2021 15:15 ordered under wrong visit, reordered. please do not redraw. Performed By: #### H LAS1 #### [facility] [address] [place] [address] HLA CLASS II AB SCREEN,FCon 08-30-2021 HLA CLASS II AB SCREEN,FC Canceled Normal [facility] Comment on above: Order Comment: TEST HLA CLASS II AB SCREEN,FC WAS CANCELLED, 08/30/2021 15:15 ordered underwrong visit, reordered. please do not redraw. Performed By: #### H BAB3 #### [facility] [address] [place] [address] HLA-A,B,C LRon 08-30-2021 HLA-A LOCUS LR TYPE Canceled Normal [facility] Comment on above: Order Comment: TEST HLA-A,B,C LR WAS CANCELLED, 08/30/2021 15:15 ordered under wrong visit,reordered. please do not redraw. Performed By: #### T SPOT #### [employer] [facility] [address] [place] [address] HLA-B LOCUS LR TYPE Canceled Normal [facility] Comment on above: Order Comment: TEST HLA-A,B,C LR WAS CANCELLED, 08/30/2021 15:15 ordered under wrong visit,reordered. please do not redraw. Performed By: #### T SPOT #### [employer] [address] [place] [address] HLA-C LOCUS LR TYPE Canceled Normal [facility] Comment on above: Order Comment: TEST HLA-A,B,C LR WAS CANCELLED, 08/30/2021 15:15 ordered under wrong visit,reordered. please do not redraw. Performed By: #### T SPOT #### [facility] [address] [place] [address] HLA-DPB1 HR TYPINGon 022 HLA-DPB1 HR TYPING Canceled Normal [facility] Comment on above: Order Comment: TEST HLA-DPB1 HR TYPING WAS CANCELLED, 08/30/2021 15:15 ordered under wrongvisit, reordered. please do not redraw. Performed By: #### T SPOT #### [facility] [address] [place] [address] HLA-DQB1 HR TYPINGon 022 HLA-DQB1 HR TYPING Canceled Normal [facility] Comment on above: Order Comment: TEST HLA-DQB1 HR TYPING WAS CANCELLED, 08/30/2021 15:15 ordered under wrongvisit, reordered. please do not redraw. Performed By: #### T SPOT #### [facility] [address] [place] [address] HLA-DRB1/3/4/5 AND DQB1 LR T YPINGon 08-30-2021 HLA-DRB1/3/4/5 & DQB1 LR TYPING Canceled Normal [facility] Comment on above: Order Comment: TEST HLA-DRB1/3/4/5 AND DQB1 LR TYPING WAS CANCELLED, 08/30/2021 15:15 orderedunder wrong visit, reordered. please do not redraw. Performed By: #### H BAB3 #### [facility] [address] [place] [address] Hemoglobin A1Con 08-30-2021 Glucose [Mass/Vol] 100 mg/dL [facility] 2100 Work Phone: HbA1c (Bld) [Mass fraction] 5.1 % [facility] [place] 2100 Work Phone: Comment on above: Diagnosis of Diabete s-Adults Non-Diabetic: < or = 5.6% Increased risk for developing diabetes: 5.7-6.4% Diagnostic of diabetes: > or = 6.5%. Monitoring of Diabetes Age (y) Therapeutic Goal (%) Adults: >18 <7.0 Pediatrics: 13-18 <7.5 7-12 <8.0 0- 6 7.5-8.5 [employer]. Diabetes Care 33(S1), Mar 2009. Hepatic Function Panelon Albumin BCP dye [Mass/Vol] 4.3 g/dL 3.4 - 5.0 [facility] [place] Work Phone: Comment on above: SOURCE: ALP [Catalytic activity/Vol] 73 U/L 33 - 110 [facility] [place] Work Phone: ALT With P-5'-P [Catalytic activity/Vol] 34 U/L 7 - 45 [facility] [place] Work Phone: Comment on above: Patients treated wit h Sulfasalazine may generate falsely decreased results for ALT. AST With P-5'-P [Catalytic activity/Vol] 37 U/L 9 - 39 [facility] [place] Work Phone: Bilirubin [Mass/Vol] 0.6 mg/dL 0.0 - 1.2 [facility] [place] Work Phone: Bilirubin.direct [Mass/Vol] 0.1 mg/dL 0.0 - 0.3 [facility] [place] Work Phone: Protein [Mass/Vol] 7.1 g/dL 6.4 - 8.2 [facility]- [place] Work Phone: Hepatitis B Surface Antibody on 08-30-2021 HBV surface Ag IA Ql <3.1 <10 [facility] [place] Work Phone: [phone] Comment on above: SOURCE: INTERPRETIVE CRITERIA:<10 mIU/mL....NONREACTIVE [...] 20 [facility] [place] 2100 Work Phone: [phone] Barbiturates Screen Ql Negative Cutoff 50 [facility] [place] 2100 Work Phone: [phone] Benzodiazepines Screen Ql Negative Cutoff 50 [facility] [place] 2099 Work Phone: [phone] Cannabinoids Screen Ql Negative Cutoff 20 [facility] [place] 2100 Work Phone: [phone] Cocaine Screen Ql Negative Cutoff 20 [facility]- [place] 2100 Work Phone: [phone] Methadone Screen Ql Negative Cutoff 25 [facility]- [place] 2100 Work Phone: [phone] Methamphetamine Ql Negative Cutoff 20 [facility] benjam[facility]- [place] 2100 Work Phone: [phone] Opiates Screen Ql Negative Cutoff 20 [facility]- [place] 2100 Work Phone: [phone] oxyCODONE Ql Negative Cutoff 20 [facility] [place] 2100 Work Phone: [phone] Phencyclidine Screen Ql Negative Cutoff 10 [facility] [place] 2100 Work Phone: [phone] Laboratory - HLA antigenson 08-30-2021 HLA-A locus Nom (Bld/Tiss) Canceled [facility] Work Phone: HLA-B locus Nom (Bld/Tiss) Canceled [facility] Work Phone: [phone] HLA-C locus Nom (Bld/Tiss) Canceled [facility] Work Phone: [phone] HLA-DP2 Ql (Bld/Tiss) Canceled [facility] Work Phone: HLA-DQB1 High resolution Nom (Bld/Tiss) Canceled [facility] Work Phone: HLA-DR+DQ Nom (Bld/Tiss) Canceled [facility] Work Phone: Laboratory - Hematology and Cell countson 08-30-2021 Erythrocyte distribution width (RBC) [Ratio] 13.2 % See Below [facility] 2100 Work Phone: [phone] Comment on above: Reference Range: 11. 5 - 14.5 Hematocrit (Bld) [Volume fraction] 35.8 % below low threshold See Below [facility] [place] 2100 Work Phone: [phone] Comment on above: Reference Range: 36. 0 - 46.0 Hemoglobin (Bld) [Mass/Vol] 11.9 g/dL below low threshold See Below [facility] [place] 2100 Work Phone: [phone] Comment on above: Reference Range: 12. 0 - 16.0 MCHC (RBC) [Mass/Vol] 33.2 g/dL See Below [facility] [place] 2099 Work Phone: [phone] Comment on above: Reference Range: 32. 0 - 36.0 MCV (RBC) [Entitic vol] 95 fL 80 - 100 [facility] [place] 2099 Work Phone: [phone] Platelets (Bld) [#/Vol] 168 10*3/uL 150 - 450 [facility] [place] 2099 Work Phone: [phone] RBC (Bld) [#/Vol] 3.76 {x10E12/L} below low [...] developed and its performance characteristics determined by [facility]. It has not been cleared or approved by the [place] Food and Drug Administration. This test was performed in a CLIA certified laboratory and is intended for clinical purposes.Performed By: [facility] [place] [address] [id number] Director: Eboni Izquierdo MD Cscsq-6-Vzldasefhnnuop e [Mass/Vol] <2 [facility] [place] 2100 Work [...] developed and its performance characteristics determined by [facility]. It has not been cleared or approved by the US Food and Drug Administration. This test was performed in a CLIA certified laboratory and is intended for clinical purposes.Performed By: [facility] [place] [address] [id number] Director: Eboni Izquierdo MD 0.0 {/100_WBC} 0.0-0.0 [facility] [place] 2[facility] Work Phone: SEE BELOW [facility] [place] 2100 Work Phone: Comment on above: . EBV INTERPRETATION CHART. VCA-IGG VCA-IGM NA-IGG EA-IGG. PRIMARY ACUTE +/- +/- - +/-LATE ACUTE + +/- +/- +/-RECOVERING + - - +PREVIOUS INFECTION + - +/- - Canceled [facility] Work Phone: Comment on above: Test performed at [facility], 6th Floor [address] [place] [address] Office VIsit (Pre-Transplant Surgery)on 08-30-2021 Follow-up visit [...] and donor allograft recipients. This data included [facility] data compared to National data readily available [...] planning to get an appointment with her latent print examiner for the patient in the next week or so. We have advised her that if she is unable to get an appointment in a timely fashion, we will refer her to a Electronic Service Technician at . At this point, given the [...] 5. TIEDI: diabetes onset. Dialysis: Hemodialysis:Dialysis Center: [facility] Compliance/Tolerance/Con trol: good compliance with treatment. Pertinent History: congestive heart failure and diabetes. Referral: Dr. Lee Cash (tel: [phone]; fax: [phone]). I am seeing ZAYDA DAVIS at the referring provider's request for surgical suitability for kidney transplant candidate listing at [facility] [place]. History of Present Illness Comments: Ms. ZAYDA DAVIS is a 55 year old female with end stage renal disease secondary to diabetes mellitus. She undergoes hemodialysis TThS at [facility]. Ms. Davis presents today for a surgical evaluation towards potential kidney transplantation. She is accompanied by her sister and her daughter. She recently started dialysis in 2020 and uses fistula for dialysis acce (more content not included)... Normal [facility] PHOSPHORUSon 08-30-2021 Phosphate [Mass/Vol] 4.6 mg/dL Normal 2.5 - 4.9 [facility] Comment on above: Result Comment: The performance characteristics of phosphorus testing in heparinized plasma have been validated by the individual laboratory site where testing is performed. Testing on heparinized plasma is not approved by the FDA; however, such approval is not necessary. Performed By: #### V ARZG #### [facility] [address] [place] [address] Phosphorus, Serumon 08-31-19 22 Phosphate [Mass/Vol] 4.6 mg/dL 2.5 - 4.9 [facility] Work Phone: Comment on above: SOURCE: The performa nce characteristics of phosphorus testing in heparinized plasma have been validated by the individual laboratory site where testing is performed. Testing on heparinized plasma is not approved by the FDA; however, such approval is not necessary. SYPHILIS SCREENING WITH REFL EXon 08-30-2021 SYPHILIS TOTAL AB Non-Reactive Normal NONREACTIVE [facility] Comment on above: Result Comment: No s ignificant level of Treponema pallidum antibody detected. Repeat testing in 2 to 4 weeks may be considered if early infection or incubating syphilis infection is suspected. Performed By: #### H BAB3 #### [facility] [address] [place] [address] T. pallidum IgG+IgM IA Ql (S) Non-Reactive See Below [facility] 2100 Work Phone: Comment on above: SOURCE: [...] fall s in the last year [facility] Work Phone: Tobacco use status CPHS b) No [facility] Work Phone: UA MICROSCOPICon 08-30-2021 BACTERIA 4+ /HPF Abnormal [facility] Comment on above: Performed By: #### V YAJAIRAG #### [facility] [address] [place] [address] HYALINE CAST 4+ /LPF Abnormal [facility] Comment on above: Performed By: #### V YAJAIRAG #### [facility] [address] [place] [address] Mucus Ql (Urine sed) 1+ /LPF Normal [facility] Comment on above: Performed By: #### V MEIRZG #### [facility] [address] [place] [address] RBC 4 /HPF Normal 0-5 [facility] Comment on above: Performed By: #### Ramón WORLEYZG #### [facility] [address] [place] [address] SQUAMOUS EPITH. CELLS 13 /HPF Normal [facility] Comment on above: Performed By: #### Ramón WORLEYZG #### [facility] [address] [place] [address] WBC 16 /HPF Abnormal 0-5 [facility] Comment on above: Performed By: #### Ramón GATESG #### [facility] [address] [place] [address] URINALYSISon 08-30-2021 Appearance (U) HAZY Normal CLEAR [facility] Comment on above: Performed By: #### H BAB3 #### [facility] [address] [place] [address] Bilirubin Ql (U) Negative Normal NEGATIVE [facility] Comment on above: Performed By: #### H BAB3 #### [facility] [address] [place] [address] Color (U) YELLOW Normal STRAW,YELLOW [facility] Comment on above: Performed By: #### H BAB3 #### [facility] [address] [place] [address] Glucose Ql (U) Negative Normal NEGATIVE [facility] Comment on above: Performed By: #### H BAB3 #### [facility] [address] [place] [address] Hemoglobin Ql (U) Negative Normal NEGATIVE [facility] Comment on above: Performed By: #### H BAB3 #### [facility] [address] [place] [address] Ketones Ql (U) Negative Normal NEGATIVE [facility] Comment on above: Performed By: #### H BAB3 #### [facility] [address] [place] [address] Leukocyte esterase Test strip Ql (U) TRACE Abnormal NEGATIVE [facility] Comment on above: Performed By: #### H BAB3 #### [facility] [address] [place] [address] Nitrite Ql (U) Negative Normal NEGATIVE [facility] Comment on above: Performed By: #### H BAB3 #### [facility] [address] [place] [address] pH (U) 5.0 [pH] Normal 5.0 - 8.0 [facility] Comment on above: Performed By: #### H BAB3 #### [facility] [address] [place] [address] Protein Ql (U) 100 (2+) Abnormal NEGATIVE [facility] Comment on above: Performed By: #### H BAB3 #### [facility] [address] [place] [address] Specific gravity (U) [Rel density] 1.015 Normal 1.005 - 1.035 [facility] Comment on above: Performed By: #### H BAB3 #### [facility] [address] [place] [address] Urobilinogen (U) [Mass/Vol] mg/dL Normal 0.0 - 1.9 [facility] Comment on above: Performed By: #### H BAB3 #### [facility] [address] [place] [address] Urinalysison 08-30-2021 Color (U) YELLOW See Below [facility] [place] Work Phone: Comment on above: Reference Range: [...] VARICELLA ZOSTER IGG AB Positive Normal NEGATIVE [facility] Comment on above: Result Comment: INTE RPRETATIVE [...] assays. Performed By: #### V KYLIE #### [facility] [address] [place] [address] Varicella Zoster IgG Antibod yon 08-30-2021 VZV [...] Specimen sent,Resul ts will be sent to [facility] Comment on above: Performed By: #### C BCD #### [facility] [address] [place] [address] FOLIC ACIDon 03-02-2019 FOLIC ACID 10.7 ng/mL Normal 3.1-17.5 [facility] Comment on above: Performed By: #### V B12, FOL, LIPID, MG, T4, TSH #### [facility] [address] [place] [address] GLYCOHEMOGLOBIN (A1C)on Glucose [Mass/Vol] 151 mg/dL Normal [facility] Comment on above: Performed By: #### G LY #### [facility] [address] [place] [address] HbA1c (Bld) [Mass fraction] 6.9 % Normal [facility] Comment on above: Result Comment: Inte rpretation [...] LOSS. Performed By: #### G LY #### [facility] [address] [place] [address] LIPID PROFILE (FASTING)on Cholesterol [Mass/Vol] 115 mg/dL Normal 0-200 [facility] Comment on above: Performed By: #### V B12, FOL, LIPID, MG, T4, TSH #### [facility] [address] [place] [address] Cholesterol in HDL [Mass/Vol] 34 mg/dL Normal 40-60 [facility] Comment on above: Performed By: #### V B12, FOL, LIPID, MG, T4, TSH #### [facility] [address] [place] [address] Cholesterol in LDL [Mass/Vol] 54 mg/dL Normal 0-130 [facility] Comment on above: Performed By: #### V B12, FOL, LIPID, MG, T4, TSH #### [facility] [address] [place] [address] Cholesterol.total/Chol esterol in HDL [Mass ratio] 3.4 mg/dl Normal 3.7-5.6 [facility] Comment on above: Performed By: #### V B12, FOL, LIPID, MG, T4, TSH #### [facility] [address] [place] [address] Triglyceride [Mass/Vol] 137 mg/dL Normal 0-150 [facility] Comment on above: Performed By: #### V B12, FOL, LIPID, MG, T4, TSH #### [facility] [address] [place] [address] VLDL CALCULATION 27 mg/dl Normal 5-40 [facility] Comment on above: Performed By: #### V B12, FOL, LIPID, MG, T4, TSH #### [facility] [address] [place] [address] MAGNESIUMon 03-02-2019 Magnesium [Mass/Vol] 1.8 mg/dL Normal 1.8-2.4 [facility] Comment on above: Performed By: #### V B12, FOL, LIPID, MG, T4, TSH #### [facility] [address] [place] [address] MR CONSULTon 03-02-2019 MR CONSULT Patient name: ZAYDA DAVIS MR#: [id number] Location: [place] Acc#: [id number] Admit Date: 03/01/19 : 1965 Age: 53 Sex: F Dictated By: Jerry Logan MD Signing Physician: DICTATED BY: Jerry Logan M.D. SIGNING PHYSICIAN: DATE OF SERVICE: 03/02/2019 CHIEF COMPLAINT: Major depression and weakness with confusion. HISTORY OF PRESENT ILLNESS: This 53-year-old female has past medical history o stroke, diabetes, COPD, hypertension, high cholesterol, chronic renal insufficiency, on Eliquis. Eventually, she was shopping at [employer] with her sister, she was in a wheelchair, she started shaking and falling backward without losing consciousness. She had multiple episodes that lasted less than 1 minute. Eventually, her sister called 911, and she is brought in to the emergency room at [place]. There she was evaluated, they discussed her case with her neurologist, Dr. Tian, and he confirmed that she had multiple testing in past, including EEG, MRI of brain, eventually never had any positive findings including an echocardiogram, carotid ultrasound in this September. She had possible depression and pseudoseizures. The patient was admitted to Skilled Nursing Unit after discussing with Dr. Mcnally. When I am trying to talk to her, she is very much alert and answering questions. She has no acute distress, cough, phlegm, fever, chills, nausea, vomiting, diarrhea, or dysuria. The patient in the ER at [place] was very anxious and teary, and she [...] LABORATORY WORK: I reviewed her laboratories from [facility]. Her ABGs, pH .38, pCO2 47, PO2 39.7. WBC count 6.85, hemoglobin 12.6, hematocrit 37, platelet count 202,000. Urine culture is essentially negative. CT head shows old left infarct. EKG has normal sinus rhythm. Her toxicological screen was negative. ASSESSMENT AND PLAN: 1. The patient has major depression with weakness, though she has been sitting ut no obvious seizures. Admitted to Skilled Nursing Unit for further psych treatment. 2. Chronic [...] will do her physical therapy. CPT code 08380. MONI/LANETTE @ 01:21 @ 02:50 # [id number] ____ Jerry Logan M.D. Electronically Signed Date/Time: 03/03/19 1220 Electronically Signed Date/Time: 03/03/19 1220 Normal [facility] RAPID PLASMA REAGINon 2018 RAPID PLASMA REAGIN NONREACTIVE Normal NONREACTIVE [facility] Comment on above: Performed By: #### R DC #### [address] [place] [address] SED RATEon 03-02-2019 SED RATE 35 mm/hr High 0-30 [facility] Comment on above: Performed By: #### E SR #### [address] [address] THYROID STIM HORMONEon 03-02 THYROID STIM HORMONE 2.370 uIU/mL Normal 0.358-3.74 [facility] Comment on above: Performed By: #### V B12, FOL, LIPID, MG, T4, TSH #### [address] [place] [address] THYROXINE (T4)on 03-02-2019 T4 [Mass/Vol] 7.9 ug/dL Normal 4.8-13.9 [facility] Comment on above: Performed By: #### V B12, FOL, LIPID, MG, T4, TSH #### [address] [address] VITAMIN B 12on 03-02-2019 Cobalamin (Vitamin B12) [Mass/Vol] 383 pg/mL Normal 254-1320 [facility] Comment on above: Performed By: #### V B12, FOL, LIPID, MG, T4, TSH #### [address] [place] [address] Millenium Collectionon 10-12 [facility] Comment on above: Result Comment: Spec imen sent,Results will be sent to Physician Performed at [facility],[address],[place] [address] Performed By: #### C BCD #### [facility] [address] [place] [address] SPINE LUMBOSACRAL 2 VIEWon 0 10-12-2018 SPINE LUMBOSACRAL 2 VIEW *FINAL Date of Service: 10/12/2018 12:32 Adm #: [id number] Reading Dr:KETAN HICKS Signoff Dr: KETAN HICKS [...] spine to left. 2. Mild degenerative changes [id number] This report has been produced using speech recognition. Original Interpreting Physician: KETAN HICKS M.D. Original Transcribed by/Date: [facility] Oct 12 2018 1:54P Original Electronically Signed by/Date: KETAN HICKS M.D. Oct 12 2018 1:54P Addendum Interpreting Physician: Addendum Transcribed by/Date: NO ADDENDUM Addendum Electronically Signed by/Date: [facility] 07-[address] [facility] Comment on above: Result Comment: Spec imen sent,Results will be sent to Physician Performed at [place] [address] Performed By: #### C D #### [place] [address] THERAPY NTon 06-16-2018 THERAPY NT HNO ID: [id number] Author: Aurelia (Compressed Yeast Supervisor) Lion Service: Speech/Swallow Author Type: Speech Language [...] phase Interventions Provided: Modified Barium Swallow Study (54490) $ Modified Barium Swallow Study (61925) Billed Units: 1 unit Total Treatment Time (minutes): 27 SUBJECTIVE: Current Hospital Course: Chart reviewed; Patient with recent history of CVA per REHAB AID at [facility] with concern for aspiraiton due to recurrent PNA Reason for Speech Therapy Consult: history of CVA with suspected dysphagia Relevant Past Medical History: CVA, dysphagia, aphasia Patient Report: I've been eating fine Home Environment Prior Swallowing Function/Diet Textures: Dysphagia Level 3 (Dysphagia Advanced);Thin liquids Please see discipline specific clinical documentation flowsheet for complete details for this therapy evaluation/treatment. [facility] NAME: Zayda Davis DATE: June 16, 2018 TIME: 12:25 PM [facility] XR MOD BARIUM SWALLOW W SPEE [...] Jun 16 2018 1:30PM EST [id number] Normal [facility] CHEST 2 VIEWon 05-14-2018 CHEST 2 VIEW *FINAL Date of Service: 05/14/2018 06:06 Adm #: [id number] Reading Dr:MIGNON HORTA Signoff Dr: MIGNON HORTA [...] Physician: MIGNON HORTA M.D. Original Transcribed by/Date: [facility] May 14 2018 8:35A Original Electronically Signed by/Date: MIGNON HORTA M.D. May 14 2018 8:35A Addendum Interpreting Physician: Addendum Transcribed by/Date: NO ADDENDUM Addendum Electronically Signed by/Date: [facility] POCT GLUCOSEon 05-14-2018 Glucose [Mass/Vol] 202 mg/dL High 65-99 [facility] Comment on above: Performed By: #### C BCD #### [facility] [id number] [place] [address] Glucose [Mass/Vol] 214 mg/dL High 65-99 [facility] Comment on above: Performed By: #### C BCD #### [facility] [id number] [place] [address] Glucose [Mass/Vol] 142 mg/dL High 65-99 [facility] Comment on above: Performed By: #### C BCD #### [facility] [address] [place] [address] Glucose [Mass/Vol] 56 mg/dL Low 65-99 [facility] Comment on above: Performed By: #### C BCD #### [facility] [address] [place] [address] Glucose [Mass/Vol] 71 mg/dL Normal 65-99 [facility] Comment on above: Performed By: #### C BCD #### [facility] [address] [place] [address] Glucose [Mass/Vol] 57 mg/dL Low 65-99 [facility] Comment on above: Performed By: #### C BCD #### [facility] [id number] [place] [address] Glucose [Mass/Vol] 87 mg/dL Normal 65-99 [facility] Comment on above: Performed By: #### C BCD #### [facility] [address] [place] [address] RENAL FUNCTION PANELon 05-14 Albumin [Mass/Vol] 2.1 g/dL Low 3.5-5.0 [facility] Comment on above: Performed By: #### C BCD #### [facility] [address] [place] [address] Anion gap [Moles/Vol] 18 mmol/L Normal 0-19 [facility] Comment on above: Performed By: #### C BCD #### [facility] [address] [place] [address] Calcium [Mass/Vol] 7.9 mg/dL Low 8.5-10.4 [facility] Comment on above: Performed By: #### C BCD #### [facility] [address] [place] [address] Chloride [Moles/Vol] 103 mmol/L Normal 97-107 [facility] Comment on above: Performed By: #### C BCD #### [facility] [address] [place] [address] CO2 [Moles/Vol] 17 mmol/L Low 24-31 [facility] Comment on above: Performed By: #### C BCD #### [facility] [address] [place] [address] Creatinine [Mass/Vol] 2.8 mg/dL High 0.4-1.6 [facility] Comment on above: Performed By: #### C BCD #### [facility] [address] [place] [address] Glucose [Mass/Vol] 92 mg/dL Normal 65-99 [facility] Comment on above: Performed By: #### C BCD #### [facility] [address] [place] [address] Phosphate [Mass/Vol] 4.6 mg/dL High 2.5-4.5 [facility] Comment on above: Performed By: #### C BCD #### [facility] [address] [place] [address] Potassium [Moles/Vol] 3.8 mmol/L Normal 3.4-5.1 [facility] Comment on above: Performed By: #### C BCD #### [facility] [address] [place] [address] Sodium [Moles/Vol] 138 mmol/L Normal 133-145 [facility] Comment on above: Performed By: #### C BCD #### [facility] [address] [place] [address] Urea nitrogen [Mass/Vol] 67 mg/dL High 8-25 [facility] Comment on above: Performed By: #### C BCD #### [facility] [place] [address] [place] [address] Urea nitrogen/Creatinine [Mass ratio] High 8-21 [facility] Comment on above: Result Comment: 23.9 Performed at [place] [address] [place] [address] Performed By: #### C BCD #### [place] [address] [place] [address] BLOOD CULTUREon 05-13-2018 Bacteria identified Cx Nom (Bld) Specimen source XXX: BLOOD Service Cmnt XXX-Imp: NONE Bacteria identified: NO GROWTH 5 DAYS Performed at [place] [address] [place] [address] : FINAL 05/13/2018 [facility] Comment on above: Performed By: #### L ACV #### [facility] [address] [place] [address] POCT GLUCOSEon 05-13-2018 Glucose [Mass/Vol] 84 mg/dL Normal 65-99 [facility] Comment on above: Performed By: #### C BCD #### [facility] [address] [place] [address] Glucose [Mass/Vol] 151 mg/dL High 65-99 [facility] Comment on above: Performed By: #### C BCD #### [facility] [address] [place] [address] Glucose [Mass/Vol] 251 mg/dL High 65-99 [facility] Comment on above: Performed By: #### C BCD #### [facility] [place] [address] [place] [address] Glucose [Mass/Vol] 215 mg/dL High 65-99 [facility] Comment on above: Performed By: #### C BCD #### [place] [address] [place] [address] Glucose [Mass/Vol] 322 mg/dL High 65-99 [facility] Comment on above: Performed By: #### C BCD #### [place] [address] [place] [address] POTASSIUM(K+)on 05-13-2018 Potassium [Moles/Vol] Normal 3.4-5.1 [facility] Comment on above: Result Comment: 4.2 Performed at [address] [place] [address] Performed By: #### C BCD #### [place] [address] [place] [address] RENAL FUNCTION PANELon 05-13 Albumin [Mass/Vol] 2.1 g/dL Low 3.5-5.0 [facility] Comment on above: Performed By: #### C BCD #### [place] [address] [place] [address] Anion gap [Moles/Vol] 15 mmol/L Normal 0-19 [facility] Comment on above: Performed By: #### C BCD #### [place] [address] [place] [address] Calcium [Mass/Vol] 8.2 mg/dL Low 8.5-10.4 [facility] Comment on above: Performed By: #### C BCD #### [facility] [place] [address] [place] [address] Chloride [Moles/Vol] 101 mmol/L Normal 97-107 [facility] Comment on above: Performed By: #### C BCD #### [facility] [place] [address] [place] [address] CO2 [Moles/Vol] 18 mmol/L Low 24-31 [facility] Comment on above: Performed By: #### C BCD #### [facility] [address] [place] [address] Creatinine [Mass/Vol] 2.6 mg/dL High 0.4-1.6 [facility] Comment on above: Performed By: #### C BCD #### [facility] [place] [address] [place] [address] Glucose [Mass/Vol] 269 mg/dL High 65-99 [facility] Comment on above: Performed By: #### C BCD #### [facility] [place] [address] [place] [address] Phosphate [Mass/Vol] 4.9 mg/dL High 2.5-4.5 [facility] Comment on above: Performed By: #### C BCD #### [facility] [place] [address] [place] [address] Potassium [Moles/Vol] SAMPLE HEMOLYZED T O BE RECOLLECTED Normal 3.4-5.1 [facility] Comment on above: Performed By: #### C BCD #### [facility] [place] [address] [place] [address] Sodium [Moles/Vol] 134 mmol/L Normal 133-145 [facility] Comment on above: Performed By: #### C BCD #### [facility] [place] [address] [place] [address] Urea nitrogen [Mass/Vol] 67 mg/dL High 8-25 [facility] Comment on above: Performed By: #### C BCD #### [facility] [place] [address] [place] [address] Urea nitrogen/Creatinine [Mass ratio] High 8-21 [facility] Comment on above: Result Comment: 25.8 Performed at [place] [address] [place] [address] Performed By: #### C BCD #### [facility] [place] [address] [place] [address] BASIC METABOLIC PANELon 04-30 Anion gap [Moles/Vol] 14 mmol/L Normal 0-19 [facility] Comment on above: Performed By: #### C BCD #### [facility] [place] [address] [place] [address] Calcium [Mass/Vol] Low 8.5-10.4 [facility] Comment on above: Result Comment: 7.8 Performed at [place] [address] [place] [address] Performed By: #### C BCD #### [facility] [place] [address] [place] [address] Chloride [Moles/Vol] 102 mmol/L Normal 97-107 [facility] Comment on above: Performed By: #### C BCD #### [facility] [place] [address] [place] [address] CO2 [Moles/Vol] 20 mmol/L Low 24-31 [facility] Comment on above: Performed By: #### C BCD #### [facility] [place] [address] [place] [address] Creatinine [Mass/Vol] 2.8 mg/dL High 0.4-1.6 [facility] Comment on above: Performed By: #### C BCD #### [facility] [place] [address] [place] [address] Glucose [Mass/Vol] 314 mg/dL High 65-99 [facility] Comment on above: Performed By: #### C BCD #### [facility] [place] [address] [place] [address] Potassium [Moles/Vol] 4.6 mmol/L Normal 3.4-5.1 [facility] Comment on above: Performed By: #### C BCD #### [facility] [place] [address] [place] [address] Sodium [Moles/Vol] 136 mmol/L Normal 133-145 [facility] Comment on above: Performed By: #### C BCD #### [facility] [place] [address] [place] [address] Urea nitrogen [Mass/Vol] 60 mg/dL High 8-25 [facility] Comment on above: Performed By: #### C BCD #### [facility] [place] [address] [place] [address] Urea nitrogen/Creatinine [Mass ratio] 21.4 RATIO High 8-21 [facility] Comment on above: Performed By: #### C BCD #### [facility] [place] [address] [place] [address] CBC with Diffon 05-12-2018 AB IMMATURE NEUT 0.17 K/UL High 0.0-0.1 [facility] Comment on above: Performed By: #### C BCD #### [facility] [place] [address] [place] [address] ABS BASO 0.01 K/UL Normal 0.00-0.22 [facility] Comment on above: Performed By: #### C BCD #### [place] [address] [place] [address] ABS EOS 0.00 K/UL Normal 0-0.45 [facility] Comment on above: Performed By: #### C BCD #### [place] [address] [place] [address] ABS NEUTROPHILS 9.22 K/UL High 1.8-7.7 [facility] Comment on above: Performed By: #### C BCD #### [place] [address] [place] [address] Basophils/100 WBC (Bld) 0.10 % Normal 0-1 [facility] Comment on above: Performed By: #### C BCD #### [place] [address] [place] [address] DIFF TYPE AUTO DIFF Normal [facility] Comment on above: Performed By: #### C BCD #### [place] [address] [place] [address] Eosinophils/100 WBC (Bld) 0.00 % Normal 0-3 [facility] Comment on above: Performed By: #### C BCD #### [facility] [place] [address] [place] [address] Lymphocytes (Bld) [#/Vol] 0.41 10*3/uL Low 1.2-3.2 [facility] Comment on above: Performed By: #### C BCD #### [place] [address] [place] [address] Lymphocytes/100 WBC (Bld) 4.10 % Low 20-40 [facility] Comment on above: Performed By: #### C BCD #### [place] [address] [place] [address] Monocytes (Bld) [#/Vol] 0.25 10*3/uL Normal 0-0.8 [facility] Comment on above: Performed By: #### C BCD #### [place] [address] [place] [address] Monocytes/100 WBC (Bld) 2.50 % Normal 0-8 [facility] Comment on above: Performed By: #### C BCD #### [place] [address] [place] [address] Neutrophils/100 WBC (Bld) 91.60 % High 50-70 [facility] Comment on above: Performed By: #### C BCD #### [place] [address] [place] [address] Neutrophils/100 WBC (Bld) 1.70 % High 0.0-1.0 [facility] Comment on above: Performed By: #### C BCD #### [place] [address] [address] [place] [address] Platelets (Bld) [#/Vol] CONSISTENT WITH REPORTED RESULTS [facility] Comment on above: Performed By: #### C BCD #### [place] [address] [place] [facility] [place] [address] Poikilocytosis 1+ Normal [facility] Comment on above: Performed By: #### C BCD #### [place] [address] [place] [facility] [address] Polychromasia Occasional Normal [facility] Comment on above: Performed By: #### C BCD #### [place] [address] [place] [place] [address] RBC morphology finding Nom (Bld) CONSISTENT WITH REPORTED RESULTS [facility] Comment on above: Performed By: #### C BCD #### [place] [address] [place] [address] WBC MORPHOLOGY SMEAR REVIEWED AND F OUND CONSISTENT WITH AUTOMATED DIFFERENTIAL Normal [facility] Comment on above: Performed By: #### C BCD #### [facility] [place] [address] [place] [address] ABS.NEUT.CALCULATED Normal [facility] Comment on above: Result Comment: 12.19 Performed at [place] [address] [facility] [address] Performed By: #### C BCD #### [facility] [place] [address] [place] [address] Erythrocyte distribution width (RBC) [Ratio] 12.8 % Normal 11.7-15.0 [facility] Comment on above: Performed By: #### C BCD #### [place] [address] [place] [address] Hematocrit (Bld) [Volume fraction] 32.5 % Low 36-44 [facility] Comment on above: Performed By: #### C BCD #### [place] [address] [place] [address] Hemoglobin (Bld) [Mass/Vol] 10.5 g/dL Low 12.0-15.0 [facility] Comment on above: Performed By: #### C BCD #### [place] [address] [place] [address] MCH (RBC) [Entitic mass] 28.9 pg Normal 26-34 [facility] Comment on above: Performed By: #### C BCD #### [place] [address] [place] [address] MCHC (RBC) [Mass/Vol] 32.3 % Normal 31-37 [facility] Comment on above: Performed By: #### C BCD #### [facility] [place] [address] [place] [address] MCV (RBC) [Entitic vol] 89.5 fL Normal 80-100 [facility] Comment on above: Performed By: #### C BCD #### [facility] [place] [address] [place] [address] MEAN PLT VOL 13.3 CU High 7.0-12.6 [facility] Comment on above: Performed By: #### C BCD #### [facility] [address] [place] [address] NRBC'S 0 /100 WBC Normal 0 [facility] Comment on above: Performed By: #### C BCD #### [place] [address] [place] [address] Platelets (Bld) [#/Vol] 200 10*3/uL Normal 150-450 [facility] Comment on above: Performed By: #### C BCD #### [place] [address] [place] [address] RBC (Bld) [#/Vol] 3.63 M/UL Low 4.0-4.9 [facility] Comment on above: Performed By: #### C BCD #### [place] [address] [place] [address] RDW-SD 42.2 FL Normal 37.0-54.0 [facility] Comment on above: Performed By: #### C BCD #### [place] [address] [place] [address] WBC (Bld) [#/Vol] 10.1 10*3/uL Normal 4.5-11.0 [facility] Comment on above: Performed By: #### C BCD #### [place] [address] [place] [address] CHEST PORTABLEon 05-12-2018 CHEST PORTABLE *FINAL Date of Service: 05/12/2018 06:43 Adm #: [id number] Reading Dr:OLAYINKA ADNRADE Signoff Dr: OLAYINKA ANDRADE PROCEDURE: CHEST PORTABLE [...] Physician: OLAYINKA ANDRADE M.D. Original Transcribed [facility]/Date[facility] May [facility] 2018 8:47A Original Electronically Signed by/Date: OLAYINKA ANDRADE M.D. May 12 2018 8:47A Addendum Interpreting Physician: Addendum Transcribed by/Date: NO ADDENDUM Addendum Electronically Signed by/Date: Normal [facility] POCT GLUCOSEon 05-12-2018 Glucose [Mass/Vol] 273 mg/dL High 65-99 [facility] Comment on above: Performed By: #### C BCD #### [facility] [place] [address] [place] [address] Glucose [Mass/Vol] 304 mg/dL High 65-99 [facility] Comment on above: Performed By: #### C BCD #### [facility] [place] [address] [place] [address] Glucose [Mass/Vol] 283 mg/dL High 65-99 [facility] Comment on above: Performed By: #### C BCD #### [facility] [place] [address] [place] [address] BASIC METABOLIC PANELon 04-30 Anion gap [Moles/Vol] 15 mmol/L Normal 0-19 [facility] Comment on above: Performed By: #### U ACUL #### [facility] [place] [address] [place] [address] Calcium [Mass/Vol] Low 8.5-10.4 [facility] Comment on above: Result Comment: 7.6 Performed at [place] [address] [place] [address] Performed By: #### U ACUL #### [facility] [place] [address] [address] [place] [address] Chloride [Moles/Vol] 103 mmol/L Normal 97-107 [facility] Comment on above: Performed By: #### U ACUL #### [facility] [place] [address] [place] [address] CO2 [Moles/Vol] 17 mmol/L Low 24-31 [facility] Comment on above: Performed By: #### U ACUL #### [facility] [place] [address] [place] [address] Creatinine [Mass/Vol] 2.8 mg/dL High 0.4-1.6 [facility] Comment on above: Performed By: #### U ACUL #### [facility] [address] [place] [address] Glucose [Mass/Vol] 282 mg/dL High 65-99 [facility] Comment on above: Performed By: #### U ACUL #### [facility] [address] [place] [address] Potassium [Moles/Vol] 4.7 mmol/L Normal 3.4-5.1 [facility] Comment on above: Performed By: #### U ACUL #### [facility] [address] [place] [address] Sodium [Moles/Vol] 135 mmol/L Normal 133-145 [facility] Comment on above: Performed By: #### U ACUL #### [facility] [place] [address] [place] [address] Urea nitrogen [Mass/Vol] 51 mg/dL High 8-25 [facility] Comment on above: Performed By: #### U ACUL #### [facility] [place] [address] [place] [address] Urea nitrogen/Creatinine [Mass ratio] 18.2 RATIO Normal 8-21 [facility] Comment on above: Performed By: #### U ACUL #### [facility] [address] [place] [address] CBC with Diffon 05-11-2018 AB IMMATURE NEUT 0.09 K/UL Normal 0.0-0.1 [facility] Comment on above: Performed By: #### U ACUL #### [facility] [address] [place] [address] ABS BASO 0.02 K/UL Normal 0.00-0.22 [facility] Comment on above: Performed By: #### U ACUL #### [facility] [address] [place] [address] ABS EOS 0.00 K/UL Normal 0-0.45 [facility] Comment on above: Performed By: #### U ACUL #### [facility] [address] [place] [address] ABS NEUTROPHILS 12.37 K/UL High 1.8-7.7 [facility] Comment on above: Performed By: #### U ACUL #### [facility] [address] [place] [address] Basophils/100 WBC (Bld) 0.10 % Normal 0-1 [facility] Comment on above: Performed By: #### U ACUL #### [facility] [address] [place] [address] DIFF TYPE AUTO DIFF Normal [facility] Comment on above: Performed By: #### U ACUL #### [facility] [address] [place] [address] Eosinophils/100 WBC (Bld) 0.00 % Normal 0-3 [facility] Comment on above: Performed By: #### U ACUL #### [facility] [address] [place] [address] Granulocytes/100 WBC (Bld) 1+ Normal [facility] Comment on above: Performed By: #### U ACUL #### [facility] [address] [place] [address] Lymphocytes (Bld) [#/Vol] 0.38 10*3/uL Low 1.2-3.2 [facility] Comment on above: Performed By: #### U ACUL #### [facility] [address] [place] [address] Lymphocytes/100 WBC (Bld) 2.80 % Low 20-40 [facility] Comment on above: Performed By: #### U ACUL #### [facility] [address] [place] [address] Monocytes (Bld) [#/Vol] 0.56 10*3/uL Normal 0-0.8 [facility] Comment on above: Performed By: #### U ACUL #### [facility] [address] [place] [address] Monocytes/100 WBC (Bld) 4.20 % Normal 0-8 [facility] Comment on above: Performed By: #### U ACUL #### [facility] [address] [place] [address] Neutrophils/100 WBC (Bld) 92.20 % High 50-70 [facility] Comment on above: Performed By: #### U ACUL #### [facility] [address] [place] [address] Neutrophils/100 WBC (Bld) 0.70 % Normal 0.0-1.0 [facility] Comment on above: Performed By: #### U ACUL #### [place] [address] [place] [address] Ovalocytes Occasional Normal [facility] Comment on above: Performed By: #### U ACUL #### [place] [address] [place] [address] Platelets (Bld) [#/Vol] CONSISTENT WITH REPORTED RESULTS [facility] Comment on above: Performed By: #### U ACUL #### [place] [address] [place] [address] Poikilocytosis 1+ Normal [facility] Comment on above: Performed By: #### U ACUL #### [address] [place] [address] Tear Drop Cells Occasional Normal [facility] Comment on above: Performed By: #### U ACUL #### [place] [address] [facility] [place] [address] WBC MORPHOLOGY SMEAR REVIEWED AND F OUND CONSISTENT WITH AUTOMATED DIFFERENTIAL [facility] Comment on above: Performed By: #### U ACUL #### [place] [address] [place] [address] ABS.NEUT.CALCULATED Normal [facility] Comment on above: Result Comment: 12.3 7 Performed at [place] [address] [place] [address] Performed By: #### U ACUL #### [place] [address] [place] [address] Erythrocyte distribution width (RBC) [Ratio] 13.2 % Normal 11.7-15.0 [facility] Comment on above: Performed By: #### U ACUL #### [place] [address] [place] [address] Hematocrit (Bld) [Volume fraction] 33.4 % Low 36-44 [facility] Comment on above: Performed By: #### U ACUL #### [facility] [place] [address] [place] [address] Hemoglobin (Bld) [Mass/Vol] 10.8 g/dL Low 12.0-15.0 [facility] Comment on above: Performed By: #### U ACUL #### [facility] [place] [address] [place] [address] MCH (RBC) [Entitic mass] 29.5 pg Normal 26-34 [facility] Comment on above: Performed By: #### U ACUL #### [facility] [place] [address] [place] [address] MCHC (RBC) [Mass/Vol] 32.3 % Normal 31-37 [facility] Comment on above: Performed By: #### U ACUL #### [facility] [place] [address] [place] [address] MCV (RBC) [Entitic vol] 91.3 fL Normal 80-100 [facility] Comment on above: Performed By: #### U ACUL #### [facility] [place] [address] [place] [address] MEAN PLT VOL 13.0 CU High 7.0-12.6 [facility] Comment on above: Performed By: #### U ACUL #### [facility] [place] [address] [place] [address] NRBC'S 0 /100 WBC Normal 0 [facility] Comment on above: Performed By: #### U ACUL #### [facility] [place] [address] [place] [address] Platelets (Bld) [#/Vol] 192 10*3/uL Normal 150-450 [facility] Comment on above: Performed By: #### U ACUL #### [facility] [place] [address] [place] [address] RBC (Bld) [#/Vol] 3.66 M/UL Low 4.0-4.9 [facility] Comment on above: Performed By: #### U ACUL #### [place] [address] [place] [address] RDW-SD 43.8 FL Normal 37.0-54.0 [facility] Comment on above: Performed By: #### U ACUL #### [place] [address] [place] [address] WBC (Bld) [#/Vol] 13.4 10*3/uL High 4.5-11.0 [facility] Comment on above: Performed By: #### U ACUL #### [place] [address] [place] [address] POCT GLUCOSEon 05-11-2018 Glucose [Mass/Vol] 306 mg/dL High 65-99 [facility] Comment on above: Performed By: #### C BCD #### [place] [address] [place] [address] Glucose [Mass/Vol] 342 mg/dL High 65-99 [facility] Comment on above: Performed By: #### C BCD #### [place] [address] [place] [address] Glucose [Mass/Vol] 330 mg/dL High 65-99 [facility] Comment on above: Performed By: #### C BCD #### [place] [address] [place] [address] Glucose [Mass/Vol] 274 mg/dL High 65-99 [facility] Comment on above: Performed By: #### U ACUL #### [place] [address] [place] [address] PTH,INTACT BATTERYon 05-11- 019 PTH,INTACT 73 PG/ML High 15-65 [facility] Comment on above: Performed By: #### C BCD #### [place] [address] [place] [address] Calcium [Mass/Vol] 7.9 mg/dL Low 8.5-10.4 [facility] Comment on above: Performed By: #### C BCD #### [place] [address] [place] [address] Phosphate [Mass/Vol] High 2.5-4.5 [facility] Comment on above: Result Comment: 6.2 Performed at [address] [place] [address] Performed By: #### C BCD #### [place] [address] [place] [address] PTH,INTACT NO RED YELLOW TUBE COLLECTED Normal 15-65 [facility] Comment on above: Performed By: #### U ACUL #### [facility] [place] [address] [place] [address] VANCOMYCIN TROUGHon 05-11-19 19 VANCOMYCIN TROUGH Normal 10-20 [facility] Comment on above: Result Comment: 18 Performed at [address] [place] [address] Performed By: #### C BCD #### [address] [address] ALBUMIN/CREAT RATIO, URINEon 05-10-2018 ALBUMIN/CREAT RATIO High 0-30 [facility] Comment on above: Result Comment: 2980 .6 30 to 300 mg/g indicates an increased risk for diabetic nephropathy. Greater than 300 mg/g is consistent with clinical nephropathy. (Am J Kidney Disease 1995, 25:107) Performed By: #### C BCD #### [address] [address] Creatinine (U) [Mass/Vol] [facility] Comment on above: Result Comment: 36.1 Performed at [address] [place] [address] Performed By: #### C BCD #### [place] [address] [place] [address] MICROALBUMIN High 0-23 [facility] Comment on above: Result Comment: 1076 RECHECKED DILUTED Performed By: #### C BCD #### [address] [address] BLOOD GAS NO CO-OXon 019 %FIO2 [facility] Comment on above: Result Comment: 50 HIGH FLOW 40LPM Performed By: #### U ACUL #### [facility] [address] [address] JACKIE'S TEST Positive Normal [facility] Comment on above: Performed By: #### U ACUL #### [facility] [address] [place] [address] BASE EXCESS [facility] Comment on above: Result Comment: 5.5 NEGATIVE Performed By: #### U ACUL #### [facility] [address] [place] [address] CO2 [Moles/Vol] 21.0 mmol/L Low 23-29 [facility] Comment on above: Performed By: #### U ACUL #### [facility] [address] [place] [address] HCO3 (Bld) [Moles/Vol] 19.8 mmol/L Low 22-28 [facility] Comment on above: Performed By: #### U ACUL #### [facility] [address] [place] [address] Oxygen (Bld) [Partial pressure] 73 MM HG Low 80-120 [facility] Comment on above: Performed By: #### U ACUL #### [facility] [address] [place] [address] Oxygen saturation in Blood Normal 90-100 [facility] Comment on above: Result Comment: 94.6 Performed at [facility] [address] [place] [address] Performed By: #### U ACUL #### [facility] [address] [place] [address] PCO2 37.4 MM HG Normal 35-45 [facility] Comment on above: Performed By: #### U ACUL #### [facility] [address] [place] [address] pH (Bld) 7.332 UNITS Low 7.350-7.450 [facility] Comment on above: Performed By: #### U ACUL #### [facility] [address] [place] [address] SITE DRAWN RIGHT RADIAL [facility] Comment on above: Performed By: #### U ACUL #### [facility] [address] [place] [address] VENTILATOR 0 [facility] Comment on above: Performed By: #### U ACUL #### [place] [address] [place] [address] LOWER RESP CULTUREon 019 LOWER RESP CULTURE Specimen source XXX: SPUTUM Performed at [address] [address] Service Cmnt XXX-Imp: NONE Performed at [address] [address] Microscopic observation: PURULENT NO ORGANISMS SEEN 2+ WBC Bacteria identified: 1+ NORMAL RESPIRATORY KHOI Performed at [address] [address] : FINAL 05/10/2018 [facility] Comment on above: Performed By: #### L ACV #### [address] [address] POCT GLUCOSEon 05-10-2018 Glucose [Mass/Vol] 215 mg/dL High 65-99 [facility] Comment on above: Performed By: #### U ACUL #### [address] [address] Glucose [Mass/Vol] 197 mg/dL High 65-99 [facility] Comment on above: Performed By: #### U ACUL #### [address] [address] Glucose [Mass/Vol] 136 mg/dL High 65-99 [facility] Comment on above: Performed By: #### U ACUL #### [address] [address] Glucose [Mass/Vol] 68 mg/dL Normal 65-99 [facility] Comment on above: Performed By: #### U ACUL #### [address] [address] Glucose [Mass/Vol] 118 mg/dL High 65-99 [facility] Comment on above: Performed By: #### C BCD #### [address] [address] PTH,INTACT BATTERYon 019 Calcium [Mass/Vol] 7.8 mg/dL Low 8.5-10.4 [facility] Comment on above: Performed By: #### U ACUL #### [facility] [place] [address] [place] [address] Phosphate [Mass/Vol] High 2.5-4.5 [facility] Comment on above: Result Comment: 7.5 Performed at [place] [address] [place] [address] Performed By: #### U ACUL #### [facility] [place] [address] [place] [address] RENAL FUNCTION PANELon 05-10 Albumin [Mass/Vol] 2.2 g/dL Low 3.5-5.0 [facility] Comment on above: Performed By: #### C BCD #### [facility] [place] [address] [place] [address] Anion gap [Moles/Vol] 15 mmol/L Normal 0-19 [facility] Comment on above: Performed By: #### C BCD #### [facility] [place] [address] [place] [address] Calcium [Mass/Vol] 7.9 mg/dL Low 8.5-10.4 [facility] Comment on above: Performed By: #### C BCD #### [facility] [place] [address] [place] [address] Chloride [Moles/Vol] 104 mmol/L Normal 97-107 [facility] Comment on above: Performed By: #### C BCD #### [facility] [place] [address] [place] [address] CO2 [Moles/Vol] 17 mmol/L Low 24-31 [facility] Comment on above: Performed By: #### C BCD #### [facility] [place] [address] [place] [address] Creatinine [Mass/Vol] 3.1 mg/dL High 0.4-1.6 [facility] Comment on above: Performed By: #### C BCD #### [facility] [place] [address] [place] [address] Glucose [Mass/Vol] 113 mg/dL High 65-99 [facility] Comment on above: Performed By: #### C BCD #### [facility] [place] [address] [place] [address] Phosphate [Mass/Vol] 7.7 mg/dL High 2.5-4.5 [facility] Comment on above: Performed By: #### C BCD #### [facility] [place] [address] [place] [address] Potassium [Moles/Vol] 4.6 mmol/L Normal 3.4-5.1 [facility] Comment on above: Performed By: #### C BCD #### [facility] [place] [address] [place] [address] Sodium [Moles/Vol] 136 mmol/L Normal 133-145 [facility] Comment on above: Performed By: #### C BCD #### [facility] [place] [address] [place] [address] Urea nitrogen [Mass/Vol] 44 mg/dL High 8-25 [facility] Comment on above: Performed By: #### C BCD #### [facility] [place] [address] [place] [address] Urea nitrogen/Creatinine [Mass ratio] Normal 8-21 [facility] Comment on above: Result Comment: 14.2 Performed at [place] [address] [place] [address] Performed By: #### C BCD #### [facility] [place] [address] [place] [address] RENALSon 05-10-2018 RENALS *FINAL Date of Service: 05/10/2018 06:52 Adm #: [id number] Reading Dr:MIGNON HORTA Signoff Dr: MIGNON HORTA PROCEDURE: RENALS - [facility] 2547 REASON FOR EXAM: CARYN RESULT: RENALS: [...] Physician: MIGNON HORTA M.D. Original Transcribed by/Date: [facility] May 10 2018 8:26A Original Electronically Signed by/Date: MIGNON HORTA M.D. May 10 2018 8:26A Addendum Interpreting Physician: Addendum Transcribed by/Date: NO ADDENDUM Addendum Electronically Signed by/Date: [facility] URINE EOSINOPHILSon 05-10-19 19 URINE EOSINOPHILS Normal [facility] Comment on above: Result Comment: NONE SEEN Performed at [address] [address] Performed By: #### C BCD #### [facility] [address] [address] VANCOMYCIN TROUGHon 05-10-19 19 VANCOMYCIN TROUGH Normal 01-16 [facility] Comment on above: Result Comment: 14 Performed at [address] [address] Performed By: #### U ACUL #### [facility] [address] [address] ADD ON LAB REQUESTon 019 ADD ON REQUEST Normal [facility] Comment on above: Result Comment: ADD ON OK Performed at [address] [address] Performed By: #### L ACV #### [address] [address] ADD ON TESTS PRCL [facility] Comment on above: Performed By: #### L ACV #### [facility] [address] [address] BLOOD CULTUREon 05-09-2018 Bacteria identified Cx Nom (Bld) Specimen source XXX: BLOOD Service Cmnt XXX-Imp: NONE Bacteria identified: NO GROWTH 5 DAYS Performed at [address] [address] : FINAL 05/09/2018 [facility] Comment on above: Performed By: #### C BCD #### [facility] [address] [address] BLOOD GAS NO CO-OXon 019 %FIO2 [facility] Comment on above: Result Comment: 60 HFNC 40LPM Performed By: #### C BCD #### [facility] [address] [place] [address] JACKIE'S TEST Positive [facility] Comment on above: Performed By: #### C BCD #### [facility] [address] [place] [address] BASE EXCESS [facility] Comment on above: Result Comment: 3.0 NEGATIVE Performed By: #### C BCD #### [facility] [address] [place] [address] CO2 [Moles/Vol] 22.4 mmol/L Low 23-29 [facility] Comment on above: Performed By: #### C BCD #### [facility] [address] [place] [address] HCO3 (Bld) [Moles/Vol] 21.3 mmol/L Low 22-28 [facility] Comment on above: Performed By: #### C BCD #### [facility] [address] [place] [address] Oxygen (Bld) [Partial pressure] 54 MM HG Low 80-120 [facility] Comment on above: Performed By: #### C BCD #### [facility] [address] [place] [address] Oxygen saturation in Blood Normal 90-100 [facility] Comment on above: Result Comment: 90.2 Performed at [place] [address] [place] [address] Performed By: #### C BCD #### [facility] [address] [place] [address] PCO2 34.5 MM HG Low 35-45 [facility] Comment on above: Performed By: #### C BCD #### [facility] [address] [place] [address] pH (Bld) 7.399 UNITS Normal 7.350-7.450 [facility] Comment on above: Performed By: #### C BCD #### [facility] [address] [place] [address] SITE DRAWN RIGHT RADIAL Normal [facility] Comment on above: Performed By: #### C BCD #### Main Laboratory [facility] [address] [place] [address] CBC with Diffon 05-09-2018 ABS BAND 0.32 K/UL Normal [facility] Comment on above: Performed By: #### B CUL #### [facility] [address] [place] [address] ABS NEUTROPHILS 14.81 K/UL High 1.8-7.7 [facility] Comment on above: Performed By: #### B CUL #### [facility] [address] [place] [address] ABS.NEUT.MANUAL 15.12 Normal [facility] Comment on above: Performed By: #### B CUL #### [facility] [address] [place] [address] BAND NEUTROPHIL 2.00 % Normal <16 [facility] Comment on above: Performed By: #### B CUL #### [facility] [address] [place] [address] DIFF TYPE MANUAL DIFF Normal [facility] Comment on above: Performed By: #### B CUL #### [facility] [address] [place] [address] Lymphocytes (Bld) [#/Vol] 0.64 10*3/uL Low 1.2-3.2 [facility] Comment on above: Performed By: #### B CUL #### [facility] [address] [place] [address] Lymphocytes/100 WBC (Bld) 4.00 % Low 20-40 [facility] Comment on above: Performed By: #### B CUL #### [facility] [address] [place] [address] Monocytes (Bld) [#/Vol] 0.16 10*3/uL Normal 0-0.8 [facility] Comment on above: Performed By: #### B CUL #### [facility] [address] [place] [address] Monocytes/100 WBC (Bld) 1.00 % Normal 0-8 [facility] Comment on above: Performed By: #### B CUL #### [facility] [address] [place] [address] Neutrophils/100 WBC (Bld) 93.00 % High 50-70 [facility] Comment on above: Performed By: #### B CUL #### [facility] [address] [place] [address] Platelets (Bld) [#/Vol] CONSISTENT WITH REPORTED RESULTS Normal [facility] Comment on above: Performed By: #### B CUL #### [facility] [address] [place] [address] RBC morphology finding Nom (Bld) CONSISTENT WITH REPORTED RESULTS [facility] Comment on above: Performed By: #### B CUL #### [facility] [address] [place] [address] ABS.NEUT.CALCULATED Normal [facility] Comment on above: Result Comment: 14.5 1 Performed at [facility] [address] [place] [address] Performed By: #### B CUL #### [facility] [address] [place] [address] Erythrocyte distribution width (RBC) [Ratio] 13.3 % Normal 11.7-15.0 [facility] Comment on above: Performed By: #### B CUL #### [facility] [address] [place] [address] Hematocrit (Bld) [Volume fraction] 36.4 % Normal 36-44 [facility] Comment on above: Performed By: #### B CUL #### [facility] [address] [place] [address] Hemoglobin (Bld) [Mass/Vol] 11.1 g/dL Low 12.0-15.0 [facility] Comment on above: Performed By: #### B CUL #### [facility] [address] [place] [address] MCH (RBC) [Entitic mass] 29.1 pg Normal 26-34 [facility] Comment on above: Performed By: #### B CUL #### [facility] [address] [place] [address] MCHC (RBC) [Mass/Vol] 30.5 % Low 31-37 [facility] Comment on above: Performed By: #### B CUL #### [facility] [address] [place] [address] MCV (RBC) [Entitic vol] 95.5 fL Normal 80-100 [facility] Comment on above: Performed By: #### B CUL #### [facility] [address] [place] [address] MEAN PLT VOL 12.4 CU Normal 7.0-12.6 [facility] Comment on above: Performed By: #### B CUL #### [facility] [address] [place] [address] NRBC'S 0 /100 WBC Normal 0 [facility] Comment on above: Performed By: #### B CUL #### [facility] [address] [place] [address] Platelets (Bld) [#/Vol] 175 10*3/uL Normal 150-450 [facility] Comment on above: Performed By: #### B CUL #### [facility] [address] [place] [address] RBC (Bld) [#/Vol] 3.81 M/UL Low 4.0-4.9 [facility] Comment on above: Performed By: #### B CUL #### [facility] [address] [place] [address] RDW-SD 47.1 FL Normal 37.0-54.0 [facility] Comment on above: Performed By: #### B CUL #### [facility] [address] [place] [address] WBC (Bld) [#/Vol] 15.9 10*3/uL High 4.5-11.0 [facility] Comment on above: Performed By: #### B CUL #### [facility] [address] [place] [address] COMPREHENSIVE METABOLIC PANE Jl 05-09-2018 Albumin [Mass/Vol] 2.0 g/dL Low 3.5-5.0 [facility] Comment on above: Performed By: #### B CUL #### [facility] [address] [place] [address] Albumin/Globulin [Mass ratio] 0.5 {ratio} Low 1.5-3.0 [facility] Comment on above: Performed By: #### B CUL #### [facility] [address] [place] [address] ALP [Catalytic activity/Vol] 67 U/L Normal 35-125 [facility] Comment on above: Performed By: #### B CUL #### [facility] [address] [place] [address] ALT [Catalytic activity/Vol] Normal 5-40 [facility] Comment on above: Result Comment: 14 Performed at [facility] [address] [place] [address] Performed By: #### B CUL #### [facility] [address] [place] [address] Anion gap [Moles/Vol] 15 mmol/L Normal 0-19 [facility] Comment on above: Performed By: #### B CUL #### [facility] [address] [place] [address] AST [Catalytic activity/Vol] 21 U/L Normal 5-40 [facility] Comment on above: Performed By: #### B CUL #### [facility] [address] [place] [address] Bilirubin [Mass/Vol] 0.2 mg/dL Normal 0.1-1.2 [facility] Comment on above: Performed By: #### B CUL #### [facility] [address] [place] [address] Calcium [Mass/Vol] 8.0 mg/dL Low 8.5-10.4 [facility] Comment on above: Performed By: #### B CUL #### [facility] [address] [place] [address] Chloride [Moles/Vol] 104 mmol/L Normal 97-107 [facility] Comment on above: Performed By: #### B CUL #### [facility] [address] [place] [address] CO2 [Moles/Vol] 16 mmol/L Low 24-31 [facility] Comment on above: Performed By: #### B CUL #### [facility] [address] [place] [address] Creatinine [Mass/Vol] 2.6 mg/dL High 0.4-1.6 [facility] Comment on above: Performed By: #### B CUL #### [facility] [address] [place] [address] Globulin (S) [Mass/Vol] 3.7 g/dL Normal 1.9-3.7 [facility] Comment on above: Performed By: #### B CUL #### [facility] [address] [place] [address] Glucose [Mass/Vol] 109 mg/dL High 65-99 [facility] Comment on above: Performed By: #### B CUL #### [facility] [address] [place] [address] Potassium [Moles/Vol] 4.7 mmol/L Normal 3.4-5.1 [facility] Comment on above: Performed By: #### B CUL #### [facility] [address] [place] [facility] [address] Protein [Mass/Vol] 5.7 g/dL Low 5.9-7.9 [facility] Comment on above: Performed By: #### B CUL #### [facility] [address] [place] [address] Sodium [Moles/Vol] 135 mmol/L Normal 133-145 [facility] Comment on above: Performed By: #### B CUL #### [facility] [address] [place] [address] Urea nitrogen [Mass/Vol] 36 mg/dL High 8-25 [facility] Comment on above: Performed By: #### B CUL #### [facility] [address] [place] [address] Urea nitrogen/Creatinine [Mass ratio] 13.8 RATIO Normal 8-21 [facility] Comment on above: Performed By: #### B CUL #### [facility] [address] [place] [address] LIPID PANELon 05-09-2018 CHOL HDL RATIO Normal [facility] Comment on above: Result Comment: 4.2 According to the [employer], the goal is to maintain the total cholesterol/HDL ratio at 5-to-1 or lower with an optimum ratio of 3.5-to-1. Performed at [facility] [address] [place] [address] [place] [address] Performed By: #### B CUL #### [facility] [address] [place] [address] Cholesterol [Mass/Vol] 201 mg/dL High 133-200 [facility] Comment on above: Performed By: #### B CUL #### [facility] [address] [place] [address] Cholesterol in HDL [Mass/Vol] Low >50 [facility] Comment on above: Result Comment: 48 National Cholesterol Education Program(NCFP)guidelines: <40 mg/dl:Low HDL-cholesterol(major risk factor for CHD) >60 mg/dl:High HDL-cholesterol(negativerisk factor for CHD) HDL-cholesterol is affected by a number of factors,e.g.,smoking, exercise,hormones,sex and age. Performed By: #### B CUL #### [address] [address] Cholesterol in LDL [Mass/Vol] 126 mg/dL Normal 65-130 [facility] Comment on above: Performed By: #### B CUL #### [address] [address] SERUM CLARITY CLEAR Normal [facility] Comment on above: Performed By: #### B CUL #### [address] [address] TRIGLYCERIDE G.B. 136 MG/DL Normal 40-150 [facility] Comment on above: Performed By: #### B CUL #### [address] [address] PT. PREPARATION FASTING Normal [facility] Comment on above: Performed By: #### B CUL #### [address] [address] SERUM COLOR YELLOW Normal [facility] Comment on above: Performed By: #### B CUL #### [place] [address] [place] [address] Lactic Acid Venouson 019 Lactic Acid Venous High 0.9-1.7 [facility] Comment on above: Result Comment: 3.7 VERIPHY Performed at [address] [place] [address] Performed By: #### B CUL #### [address] [address] POCT GLUCOSEon 05-09-2018 Glucose [Mass/Vol] 95 mg/dL Normal 65-99 [facility] Comment on above: Performed By: #### C BCD #### [facility] [address] [place] [address] Glucose [Mass/Vol] 117 mg/dL High 65-99 [facility] Comment on above: Performed By: #### C BCD #### [facility] [address] [place] [address] Glucose [Mass/Vol] 116 mg/dL High 65-99 [facility] Comment on above: Performed By: #### C BCD #### [facility] [address] [place] [address] Glucose [Mass/Vol] 56 mg/dL Low 65-99 [facility] Comment on above: Performed By: #### C BCD #### [facility] [address] [place] [address] Glucose [Mass/Vol] 85 mg/dL Normal 65-99 [facility] Comment on above: Performed By: #### L ACV #### [facility] [address] [place] [address] Glucose [Mass/Vol] 91 mg/dL Normal 65-99 [facility] Comment on above: Performed By: #### L ACV #### [facility] [address] [place] [address] Glucose [Mass/Vol] 53 mg/dL Low 65-99 [facility] Comment on above: Performed By: #### L ACV #### [facility] [address] [place] [address] Glucose [Mass/Vol] 66 mg/dL Normal 65-99 [facility] Comment on above: Performed By: #### L ACV #### [facility] [address] [place] [address] Glucose [Mass/Vol] 70 mg/dL Normal 65-99 [facility] Comment on above: Performed By: #### B CUL #### [facility] [address] [place] [address] Glucose [Mass/Vol] 69 mg/dL Normal 65-99 [facility] Comment on above: Performed By: #### B CUL #### [place] [address] [place] [address] Glucose [Mass/Vol] 70 mg/dL Normal 65-99 [facility] Comment on above: Performed By: #### B CUL #### [address] [address] Procalcitoninon 05-09-2018 Procalcitonin High <0.09 [facility] Comment on above: Result Comment: 4.93 RESULT [...] in patients with bacterial infection). Performed at [address] [address] Performed By: #### L ACV #### [facility] [address] [address] ADD ON LAB REQUESTon 019 ADD ON REQUEST Normal [facility] Comment on above: Result Comment: ADDE D OK Performed at [address] [address] Performed By: #### B CUL #### [address] [address] ADD ON TESTS PBNP Normal [facility] Comment on above: Performed By: #### B CUL #### [address] [address] BASIC METABOLIC PANELon Glucose [Mass/Vol] High 65-99 [facility] Comment on above: Result Comment: 654 RESULT CHECKED VERIPHY Performed By: #### B MP ####[facility] Laboratory[facility] Qnyh[address] [place] [address] Anion gap [Moles/Vol] 18 mmol/L Normal 0-19 [facility] Comment on above: Performed By: #### B MP ####[facility] Laboratory[facility] Bstv[address] [place] [address] Calcium [Mass/Vol] Low 8.5-10.4 [facility] Comment on above: Result Comment: 8.1 Performed at [facility] [address] [place] [address] Performed By: #### B MP ####[facility] LaboratoryL[facility] Tkgm[address] [place] [address] Chloride [Moles/Vol] 100 mmol/L Normal 97-107 [facility] Comment on above: Performed By: #### B MP ####[facility] Laboratory[facility] X[address] [place] [address] CO2 [Moles/Vol] 16 mmol/L Low 24-31 [facility] Comment on above: Performed By: #### B MP ####[facility] Laboratory[facility] Abpz[address] [place] [address] Creatinine [Mass/Vol] 2.5 mg/dL High 0.4-1.6 [facility] Comment on above: Performed By: #### B MP ####[facility] LaboratoryL[facility] Ofgj[address] [place] [address] Potassium [Moles/Vol] 4.6 mmol/L Normal 3.4-5.1 [facility] Comment on above: Performed By: #### B MP ####[facility] Laboratory[facility] Nohm[address] [place] [address] Sodium [Moles/Vol] 134 mmol/L Normal 133-145 [facility] Comment on above: Performed By: #### B MP ####[facility] LaboratoryL[facility] Dbms[address] [place] [address] Urea nitrogen [Mass/Vol] 33 mg/dL High 8-25 [facility] Comment on above: Performed By: #### B MP ####[facility] LaboratoryL[facility] Jyau[address] [place] [address] Urea nitrogen/Creatinine [Mass ratio] 13.2 RATIO Normal 8-21 [facility] Comment on above: Performed By: #### B MP ####[facility] Laboratory[facility] Xxuk[address] [place] [address] Glucose [Mass/Vol] High 65-99 [facility] Comment on above: Result Comment: 513 RESULT CHECKED VERIPHY Performed By: #### B MP ####[facility] LaboratoryL[facility] Rmnt[address] [place] [address] Anion gap [Moles/Vol] 16 mmol/L Normal 0-19 [facility] Comment on above: Performed By: #### B MP ####[facility] LaboratoryL[facility] Wnkx[address] [place] [address] Chloride [Moles/Vol] 100 mmol/L Normal 97-107 [facility] Comment on above: Performed By: #### B MP ####[facility] Laboratory[facility] Ywdi[address] [place] [address] CO2 [Moles/Vol] 19 mmol/L Low 24-31 [facility] Comment on above: Performed By: #### B MP ####[facility] Laboratory[facility] Zbkk[address] [place] [address] Potassium [Moles/Vol] 4.6 mmol/L Normal 3.4-5.1 [facility] Comment on above: Performed By: #### B MP ####[facility] Laboratory[facility] Yuel[address] [place] [address] Sodium [Moles/Vol] 135 mmol/L Normal 133-145 [facility] Comment on above: Performed By: #### B MP ####[facility] Laboratory[facility] Tlbx[address] [place] [address] Calcium [Mass/Vol] 8.5 mg/dL Normal 8.5-10.4 [facility] Comment on above: Performed By: #### B MP ####[facility] Laboratory[facility] Jwar[address] [place] [address] Creatinine [Mass/Vol] 2.1 mg/dL High 0.4-1.6 [facility] Comment on above: Performed By: #### B MP ####[address] [address] GFR/1.73 sq M.predicted MDRD (S/P/Bld) [Vol rate/Area] Normal [facility] Comment on above: Result Comment: 26 GFR ml/min/1.73m2 Stage ----- 90 1 60-89 2 30-59 3 15-29 4 <15 5 For -Americans, multiply EGFR result by 1.210 Calculation not validated for patients under 18 years of age. Performed at [address] [address] Performed By: #### B MP ####[address] [address] Urea nitrogen [Mass/Vol] 28 mg/dL High 8- [facility] Comment on above: Performed By: #### B MP ####[address] [address] Urea nitrogen/Creatinine [Mass ratio] 13.3 RATIO Normal 8- [facility] Comment on above: Performed By: #### B MP ####[address] [address] BETA-HYDROXYBUTYRATEon 05-08 BETA HYDRO RESULT Normal 0.1-0.3 [facility] Comment on above: Result Comment: 0.3 Values exceeding 0.27 mmol/L indicate ketosis Performed at [address] [place] [address] Performed By: #### B HB ####[address] [address] BILIRUBIN,TOTALon 05-08-2018 Bilirubin [Mass/Vol] Normal 0.1-1.2 [facility] Comment on above: Result Comment: 0.4 Performed at [address] [place] [address] Performed By: #### T MARCOS ####[address] [address] BLOOD GAS NO CO-Maryannn 019 %FIO2 [facility] Comment on above: Result Comment: NASA L CANNULA 4L CORRECTED ON 05/08 AT 1544: PREVIOUSLY REPORTED 50 PS5 PEEP5 50% Performed By: #### A BG ####[place] [address] [place] [address] BASE EXCESS [facility] Comment on above: Result Comment: 8.3 NEGATIVE CORRECTED ON 05/08 AT 1544: PREVIOUSLY REPORTED 0.6 NEGATIVE Performed By: #### A BG ####[place] [address] [place] [address] CO2 [Moles/Vol] Low 23-29 [facility] Comment on above: Result Comment: 18.9 CORRECTED ON 05/08 AT 1544: PREVIOUSLY REPORTED 26.0 Performed By: #### A BG ####[place] [address] [place] [address] CPAP 0 CM.H20 [facility] Comment on above: Performed By: #### A BG ####[place] [address] [place] [address] HCO3 (Bld) [Moles/Vol] Low 22-28 [facility] Comment on above: Result Comment: 17.8 CORRECTED ON 05/08 AT 1544: PREVIOUSLY REPORTED 24.7 Performed By: #### A BG ####[place] [address] [place] [address] Oxygen (Bld) [Partial pressure] Low 80-120 [facility] Comment on above: Result Comment: 78 CORRECTED ON 05/08 AT 1544: PREVIOUSLY REPORTED 106 Performed By: #### A BG ####[place] [address] [place] [address] Oxygen saturation in Blood Normal 90-100 [facility] Comment on above: Result Comment: 95.7 Performed at [facility] [address] [place] [address] CORRECTED ON 05/08 AT 1544: PREVIOUSLY REPORTED 98.4 Performed By: #### A BG ####[place] [address] [place] [address] PCO2 Normal 35-45 [facility] Comment on above: Result Comment: 37.7 CORRECTED ON 05/08 AT 1544: PREVIOUSLY REPORTED 42.4 Performed By: #### A BG ####[place] [address] [place] [address] PEEP 0 CM.H20 [facility] Comment on above: Performed By: #### A BG ####[place] [address] [place] [address] pH (Bld) Low 7.350-7.450 [facility] Comment on above: Result Comment: 7.28 2 CORRECTED ON 05/08 AT 1544: PREVIOUSLY REPORTED 7.375 Performed By: #### A BG ####[place] [address] [place] [address] Respiratory rate Normal [facility] Comment on above: Result Comment: 0 CORRECTED ON 05/08 AT 1544: PREVIOUSLY REPORTED 23 Performed By: #### A BG ####[place] [address] [place] [address] TIDAL VOLUME [facility] Comment on above: Result Comment: 0 CORRECTED ON 05/08 AT 1544: PREVIOUSLY REPORTED 327 Performed By: #### A BG ####[place] [address] [place] [address] VENTILATOR 0 [facility] Comment on above: Performed By: #### A BG ####[place] [address] [place] [address] JACKIE'S TEST Positive [facility] Comment on above: Performed By: #### A BG ####[place] [address] [place] [address] SITE DRAWN RIGHT RADIAL [facility] Comment on above: Performed By: #### A BG ####[place] [address] [place] [address] CBC with Diffon 05-08-2018 AB IMMATURE NEUT 0.12 K/UL High 0.0-0.1 [facility] Comment on above: Performed By: #### C BCD ####[place] [address] [place] [address] ABS BASO 0.03 K/UL Normal 0.00-0.22 [facility] Comment on above: Performed By: #### C BCD ####[facility] LaboratoryL[facility] Magv[address] [place] [address] ABS EOS 0.01 K/UL Normal 0-0.45 [facility] Comment on above: Performed By: #### C BCD ####[facility] LaboratoryLake Umhh[address] [place] [address] ABS NEUTROPHILS 12.62 K/UL High 1.8-7.7 [facility] Comment on above: Performed By: #### C BCD ####[facility] LaboratoryLake Teev[address] [place] [address] Basophils/100 WBC (Bld) 0.20 % Normal 0-1 [facility] Comment on above: Performed By: #### C BCD ####[facility] LaboratoryInke Mrtp[address] [place] [address] DIFF TYPE AUTO DIFF Normal [facility] Comment on above: Performed By: #### C BCD ####[facility] LaboratoryLake Njrv[address] [place] [address] Eosinophils/100 WBC (Bld) 0.10 % Normal 0-3 [facility] Comment on above: Performed By: #### C BCD ####[facility] LaboratoryLake Meba[address] [place] [address] Lymphocytes (Bld) [#/Vol] 0.28 10*3/uL Low 1.2-3.2 [facility] Comment on above: Performed By: #### C BCD ####[facility] LaboratoryLake Mvne[address] [place] [address] Lymphocytes/100 WBC (Bld) 2.10 % Low 20-40 [facility] Comment on above: Performed By: #### C BCD ####[facility] LaboratoryL[facility] Fxlh[address] [place] [address] Monocytes (Bld) [#/Vol] 0.29 10*3/uL Normal 0-0.8 [facility] Comment on above: Performed By: #### C BCD ####[facility] LaboratoryL[facility] Tuse[address] [place] [address] Monocytes/100 WBC (Bld) 2.20 % Normal 0-8 [facility] Comment on above: Performed By: #### C BCD ####[facility] LaboratoryLake Kmiy[address] [place] [address] Neutrophils/100 WBC (Bld) 0.90 % Normal 0.0-1.0 [facility] Comment on above: Performed By: #### C BCD ####[facility] LaboratoryInke Jcvx[address] [place] [address] Neutrophils/100 WBC (Bld) 94.50 % High 50-70 [facility] Comment on above: Performed By: #### C BCD ####[facility] LaboratoryInke Jymj[address] [place] [address] Platelets (Bld) [#/Vol] CONSISTENT WITH REPORTED RESULTS Normal [facility] Comment on above: Performed By: #### C BCD ####[facility] LaboratoryKatie V[place] [address] [place] [address] RBC morphology finding Nom (Bld) CONSISTENT WITH REPORTED RESULTS Normal [facility] Comment on above: Performed By: #### C BCD ####[facility] LaboratoryInke Vrgz[address] [place] [address] WBC MORPHOLOGY SMEAR REVIEWED AND F OUND CONSISTENT WITH AUTOMATED DIFFERENTIAL Normal [facility] Comment on above: Performed By: #### C BCD ####[facility] LaboratoryInke Dpiv[address] [place] [address] ABS.NEUT.CALCULATED Normal [facility] Comment on above: Result Comment: 12.6 2 Performed at [facility] [address] [place] [address] Performed By: #### C BCD ####[facility] LaboratoryLake Excm[address] [place] [address] Erythrocyte distribution width (RBC) [Ratio] 13.2 % Normal 11.7-15.0 [facility] Comment on above: Performed By: #### C BCD ####[facility] LaboratoryLake Pqvi[address] [place] [address] Hematocrit (Bld) [Volume fraction] 35.9 % Low 36-44 [facility] Comment on above: Performed By: #### C BCD ####[facility] LaboratoryLake Dvae[address] [place] [address] Hemoglobin (Bld) [Mass/Vol] 11.5 g/dL Low 12.0-15.0 [facility] Comment on above: Performed By: #### C BCD ####[facility] LaboratoryL[facility] Khts[address] [place] [address] MCH (RBC) [Entitic mass] 28.9 pg Normal 26-34 [facility] Comment on above: Performed By: #### C BCD ####[facility] LaboratoryL[facility] Eoul[address] [place] [address] MCHC (RBC) [Mass/Vol] 32.0 % Normal 31-37 [facility] Comment on above: Performed By: #### C BCD ####[facility] LaboratoryLake Ajbb[address] [place] [address] MCV (RBC) [Entitic vol] 90.2 fL Normal 80-100 [facility] Comment on above: Performed By: #### C BCD ####[facility] LaboratoryLake Qgld[address] [place] [address] MEAN PLT VOL 12.9 CU High 7.0-12.6 [facility] Comment on above: Performed By: #### C BCD ####[facility] LaboratoryLake Tbcr[address] [place] [address] NRBC'S 0 /100 WBC Normal 0 [facility] Comment on above: Performed By: #### C BCD ####[facility] LaboratoryLake Fxyx[address] [place] [address] Platelets (Bld) [#/Vol] 187 10*3/uL Normal 150-450 [facility] Comment on above: Performed By: #### C BCD ####[facility] LaboratoryLake Lnmi[address] [place] [address] RBC (Bld) [#/Vol] 3.98 M/UL Low 4.0-4.9 [facility] Comment on above: Performed By: #### C BCD ####[facility] LaboratoryLake Pkkh[address] [place] [address] RDW-SD 43.8 FL Normal 37.0-54.0 [facility] Comment on above: Performed By: #### C BCD ####[place] [address] [address] [place] [address] WBC (Bld) [#/Vol] 13.4 10*3/uL High 4.5-11.0 [facility] Comment on above: Performed By: #### C BCD ####[place] [address] [place] [address] AB IMMATURE NEUT 0.18 K/UL High 0.0-0.1 [facility] Comment on above: Performed By: #### C BCD ####[place] [address] [place] [address] ABS BASO 0.05 K/UL Normal 0.00-0.22 [facility] Comment on above: Performed By: #### C BCD ####[place] [address] [place] [address] ABS EOS 0.19 K/UL Normal 0-0.45 [facility] Comment on above: Performed By: #### C BCD ####[place] [address] [facility] [place] [address] ABS NEUTROPHILS 14.02 K/UL High 1.8-7.7 [facility] Comment on above: Performed By: #### C BCD ####[place] [address] [place] [address] ABS.NEUT.CALCULATED Normal [facility] Comment on above: Result Comment: 14.0 2 Performed at [facility] [address] [place] [address] Performed By: #### C BCD ####[place] [address] [place]avazuly[address] [address] Basophils/100 WBC (Bld) 0.30 % Normal 0-1 [facility] Comment on above: Performed By: #### C BCD ####[place] [address] [place]uly[place] [address] DIFF TYPE AUTO DIFF Normal [facility] Comment on above: Performed By: #### C BCD ####[place] Dikw[address] [place] [address] Eosinophils/100 WBC (Bld) 1.20 % Normal 0-3 [facility] Comment on above: Performed By: #### C BCD ####[place] Leml[address] [place] [address] Erythrocyte distribution width (RBC) [Ratio] 13.5 % Normal 11.7-15.0 [facility] Comment on above: Performed By: #### C BCD ####[place] X[address] [place] [address] Hematocrit (Bld) [Volume fraction] 40.5 % Normal 36-44 [facility] Comment on above: Performed By: #### C BCD ####[place] Evxr[address] [place] [address] Hemoglobin (Bld) [Mass/Vol] 12.9 g/dL Normal 12.0-15.0 [facility] Comment on above: Performed By: #### C BCD ####[place] [address] [place] [address] Lymphocytes (Bld) [#/Vol] 0.93 10*3/uL Low 1.2-3.2 [facility] Comment on above: Performed By: #### C BCD ####[place] Sozj[address] [place] [address] Lymphocytes/100 WBC (Bld) 5.70 % Low 20-40 [facility] Comment on above: Performed By: #### C BCD ####[facility] [place] [address] MCH (RBC) [Entitic mass] 28.4 pg Normal 26-34 [facility] Comment on above: Performed By: #### C BCD ####[facility] LaboratoryLake Tpsm[address] [place] [address] MCHC (RBC) [Mass/Vol] 31.9 % Normal 31-37 [facility] Comment on above: Performed By: #### C BCD ####[facility] LaboratoryIninna Qnhi[address] [place] [address] MCV (RBC) [Entitic vol] 89.2 fL Normal 80-100 [facility] Comment on above: Performed By: #### C BCD ####[facility] LaboratorySalbador [address]oe[address] [address] MEAN PLT VOL 12.1 CU Normal 7.0-12.6 [facility] Comment on above: Performed By: #### C BCD ####[facility] LaboratoryLainna [address] [place] [address] Monocytes (Bld) [#/Vol] 0.94 10*3/uL High 0-0.8 [facility] Comment on above: Performed By: #### C BCD ####[facility] LaboratoryLainna PoeNvsz[address] [place] [address] Monocytes/100 WBC (Bld) 5.80 % Normal 0-8 [facility] Comment on above: Performed By: #### C BCD ####[facility] LaboratoryLainna Wfrs[address] [place] [address] Neutrophils/100 WBC (Bld) 1.10 % High 0.0-1.0 [facility] Comment on above: Performed By: #### C BCD ####[facility] LaboratoryLainna [address]oeEvpt[address] [place] [address] Neutrophils/100 WBC (Bld) 85.90 % High 50-70 [facility] Comment on above: Performed By: #### C BCD ####[facility] Laboratory[facility]ainna [address] [place] [address] NRBC'S 0 /100 WBC Normal 0 [facility] Comment on above: Performed By: #### C BCD ####[facility] LaboratoryLainna Wzhl[address] [place] [address] Platelets (Bld) [#/Vol] 222 10*3/uL Normal 150-450 [facility] Comment on above: Performed By: #### C BCD ####[facility] LaboratoryLake Jwvf[address] [place] [address] RBC (Bld) [#/Vol] 4.54 M/UL Normal 4.0-4.9 [facility] Comment on above: Performed By: #### C BCD ####[facility] [address] RDW-SD 43.8 FL Normal 37.0-54.0 [facility] Comment on above: Performed By: #### C BCD ####[facility] Heev[address] [address] WBC (Bld) [#/Vol] 16.3 10*3/uL High 4.5-11.0 [facility] Comment on above: Performed By: #### C BCD ####[facility] LockIninna Yv[address] [place] [address] CHEST PORTABLEon 05-08-2018 CHEST PORTABLE *FINAL Date of Service: 05/08/2018 07:19 Adm #: [id number] Reading Dr:MALACHI DEAN Signoff Dr: MALACHI DEAN [...] Physician: MALACHI DEAN M.D. Original Transcribed by/Date: [facility] May 08 2018 8:02A Original Electronically Signed by/Date: MALACHI DEAN M.D. May 08 2018 8:02A Addendum Interpreting Physician: Addendum Transcribed by/Date: NO ADDENDUM Addendum Electronically Signed by/Date: Normal [facility] CKMB Grant 05-08-2018 CK.MB [Mass/Vol] 3.9 ng/mL Normal 0.0-5.0 [facility] Comment on above: Performed By: #### B CUL #### [facility] [address] [place] [address] CKMB % INDEX Normal 0-3.5 [facility] Comment on above: Result Comment: 2.1 Performed at [place] [address] [place] [address] Performed By: #### B CUL #### [address] [place] [address] CK.MB [Mass/Vol] 3.3 ng/mL Normal 0.0-5.0 [facility] Comment on above: Performed By: #### B CUL #### [facility] [address] [place] [address] CKMB % INDEX Normal 0-3.5 [facility] Comment on above: Result Comment: 2.0 Performed at [address] [place] [place] [address] Performed By: #### B CUL #### [address] [place] [address] CREATINE KINASEon 05-08-2018 CK [Catalytic activity/Vol] Normal 24-195 [facility] Comment on above: Result Comment: 185 Performed at [address] [place] [place] [address] Performed By: #### B CUL #### [address] [place] [address] CK [Catalytic activity/Vol] Normal 24-195 [facility] Comment on above: Result Comment: 161 Performed at [address] [place] [place] [address] Performed By: #### B CUL #### [address] [place] [address] HEMOGLOBIN A1con 05-08-2018 HbA1c (Bld) [Mass fraction] High 4.0-6.0 [facility] Comment on above: Result Comment: 9.5 Hemoglobin [...] mg/dl 10% ............................... 240 mg/dl Performed at [address] [place] [address] Performed By: #### B CUL #### [address] [address] INFLUENZA RAPID, FIAon 05-[address] [facility] Comment on above: Result Comment: POSI TIVE VERIPHY Performed By: #### R FLUAB ####[address] [facility] Comment on above: Result Comment: NEGA TIVE Performed at [address] [address] Performed By: #### R FLUAB ####[address] [address] Lactic Acid Venouson 019 Lactic Acid Venous High 0.9-1.7 [facility] Comment on above: Result Comment: 2.9 VERIPHY Performed at [address] [place] [address] Performed By: #### B CUL #### [address] [place] [address] Lactic Acid Venous High 0.9-1.7 [facility] Comment on above: Result Comment: 4.0 VERIPHY Performed at [address] [place] [address] Performed By: #### B CUL #### [address] [place] [address] Lactic Acid Venous High 0.9-1.7 [facility] Comment on above: Result Comment: 3.3 VERIPHY Performed at [address] [place] [address] Performed By: #### L ACV ####Main LaboratoryHenry [facility]ille [address] Judith [place] [address] POCT GLUCOSEon 05-08-2018 Glucose [Mass/Vol] 322 mg/dL High [address] [place] [address] Comment on above: Performed By: #### B CUL #### [place] [address] [place] [address] Glucose [Mass/Vol] 475 mg/dL [address] Comment on above: Performed By: #### B CUL #### [address] [address] [place] [facility] [address] Glucose [Mass/Vol] High [address] [place] [address] Comment on above: Result Comment: 561 RESULT ABOVE 500 MG/DL,SEND TO LAB FOR REPEAT TESTING Performed By: #### B CUL #### [address] [place] [place] [address] Glucose [Mass/Vol] [address] Comment on above: Result Comment: 578 RESULT ABOVE 500 MG/DL,SEND TO LAB FOR REPEAT TESTING Performed By: #### P CGL ####[place] [address] [place] [address] Glucose [Mass/Vol] RESULT ABOVE 600 MG/DL,SEND TO LAB FOR REPEAT TESTING Normal [address] [place] [address] Comment on above: Performed By: #### P CGL ####[place] [address] [address] [place] [address] Glucose [Mass/Vol] High [address] [place] [address] System Comment on above: Result Comment: 579 RESULT ABOVE 500 MG/DL,SEND TO LAB FOR REPEAT TESTING Performed By: #### P CGL ####[place] [address] [place] [address] PRO-BNPon 05-08-2018 Natriuretic peptide B (Bld) [Mass/Vol] High 0-192 [facility] Comment on above: Result Comment: 1416 5 Reference ranges are based on clinical submission data. These ranges represent the 95th percentile of normal cut-off points. As NT pro-BNP values approach 1000 pg/ml, clinical symptoms are more likely associated with CHF. Performed at [address] [place] [address] Performed By: #### B CUL #### [address] [address] [place] [address] PT AND PTTon 05-08-2018 ANTICOAGULANT INFORMATION NOT REPO RTED TO LABORATORY [facility] Comment on above: Performed By: #### P PB ####[place] [address] [place] [address] aPTT Coag (Bld) [Time] Normal 22.0-32.5 [facility] Comment on above: Result Comment: 25.9 Performed at [place] [address] [place] [address] Performed By: #### P PB ####[place] [address] [place] [address] INR Coag (PPP) [Relative time] Normal 0.86-1.16 [facility] Comment on above: Result Comment: 1.0 INR Theraputic Range: 2.0-3.5 Performed By: #### P PB ####[place] [address] [facility] [place] [address] PT Coag (PPP) [Time] 10.9 s Normal 9.3-12.7 [facility] Comment on above: Performed By: #### P PB ####[place] [address] [facility] [place] [address] UA WITH MICROon 05-08-2018 BACT Negative [facility] Comment on above: Performed By: #### B CUL #### [address] [place] [address] MICROSCOPIC AUTOMATIC MICROSCOPI C URINES [facility] Comment on above: Performed By: #### B CUL #### [address] [place] [address] RBC 554 /HPF High 0-3 [facility] Comment on above: Performed By: #### B CUL #### [facility] [address] [place] [address] URINE HYALINE CAST 6 /LPF Normal [facility] Comment on above: Performed By: #### B CUL #### [facility] [address] [place] [address] URINE SQUAMOUS EPI FEW Normal [facility] Comment on above: Performed By: #### B CUL #### [facility] [address] [place] [address] WBC 4 /HPF High 0-3 [facility] Comment on above: Performed By: #### B CUL #### [facility] [address] [place] [address] BILI Negative Normal NEG [facility] Comment on above: Performed By: #### B CUL #### [facility] [address] [place] [address] BLOOD Abnormal NEG [facility] Comment on above: Result Comment: LARG E Performed at [facility] [address] [place] [address] Performed By: #### B CUL #### [facility] [address] [place] [address] Clarity (U) CLEAR Normal [facility] Comment on above: Performed By: #### B CUL #### [facility] [address] [place] [address] Color (U) LAURA Normal [facility] Comment on above: Performed By: #### B CUL #### [facility] [address] [place] [address] GLUC >=1000 Abnormal NEG [facility] Comment on above: Performed By: #### B CUL #### [facility] [address] [place] [address] KET Negative Normal NEG [facility] Comment on above: Performed By: #### B CUL #### [facility] [address] [place] [address] LEUK Negative Normal NEG [facility] Comment on above: Performed By: #### B CUL #### [facility] [address] [place] [address] NIT Negative Normal NEG [facility] Comment on above: Performed By: #### B CUL #### [facility] [address] [place] [address] pH (U) 6.0 [pH] Normal 4.6-8.0 [facility] Comment on above: Performed By: #### B CUL #### [facility] [address] [place] [address] PROT 300 mg/dL Abnormal NEG [facility] Comment on above: Performed By: #### B CUL #### [address] [place] [address] SP GRAV,URINE 1.017 Normal 1.005-1.030 [facility] Comment on above: Performed By: #### B CUL #### [address] [place] [address] URO NORMAL Normal 0-1.0 [facility] Comment on above: Performed By: #### B CUL #### [address] [place] [address] BLOOD CULTUREon 05-07-2018 Bacteria identified Cx Nom (Bld) Specimen source XXX: BLOOD Service Cmnt XXX-Imp: NONE Bacteria identified: NO GROWTH 5 DAYS Performed at [place] [place] [address] : FINAL 05/07/2018 [facility] Comment on above: Performed By: #### B CUL #### [address] [place] [address] CBC WITHOUT DIFFon 9 Erythrocyte distribution width (RBC) [Ratio] 13.2 % Normal 11.7-15.0 [facility] Comment on above: Performed By: #### C GENERATOR MAN #### Main Laboratory [place] [place] [address] Hematocrit (Bld) [Volume fraction] 32.7 % Low 36-44 [facility] Comment on above: Performed By: #### C GENERATOR MAN #### [facility] [address] [place] [address] Hemoglobin (Bld) [Mass/Vol] 10.6 g/dL Low 12.0-15.0 [facility] Comment on above: Performed By: #### C GENERATOR MAN #### [facility] [address] [place] [address] MCH (RBC) [Entitic mass] 28.8 pg Normal 26-34 [facility] Comment on above: Performed By: #### C GENERATOR MAN #### [facility] [address] [address] MCHC (RBC) [Mass/Vol] 32.4 % Normal 31-37 [facility] Comment on above: Performed By: #### C GENERATOR MAN #### [facility] [address] [address] [place] [address] MCV (RBC) [Entitic vol] 88.9 fL Normal 80-100 [facility] Comment on above: Performed By: #### C GENERATOR MAN #### [facility] [address] [address] MEAN PLT VOL 11.7 CU Normal 7.0-12.6 [facility] Comment on above: Performed By: #### C GENERATOR MAN #### [facility] [address] [address] NRBC'S Normal 0 [facility] Comment on above: Result Comment: 0 Performed at [address] [address] Performed By: #### C GENERATOR MAN #### [facility] [place] [address] [place] [address] Platelets (Bld) [#/Vol] 188 10*3/uL Normal 150-450 [facility] Comment on above: Performed By: #### C GENERATOR MAN #### [facility] [address] [address] RBC (Bld) [#/Vol] 3.68 M/UL Low 4.0-4.9 [facility] Comment on above: Performed By: #### C GENERATOR MAN #### [facility] [address] [address] [place] [address] RDW-SD 43.1 FL Normal 37.0-54.0 [facility] Comment on above: Performed By: #### C GENERATOR MAN #### [facility] [place] [address] [address] [place] [address] WBC (Bld) [#/Vol] 5.7 10*3/uL Normal 4.5-11.0 [facility] Comment on above: Performed By: #### C GENERATOR MAN #### Main Laboratory [place] [address] [place] [address] COMPREHENSIVE METABOLIC PANE Jl 05-07-2018 Bilirubin [Mass/Vol] Normal 0.1-1.2 [facility] Comment on above: Result Comment: 0.2 LESS THAN Performed By: #### C GENERATOR MAN ####Main LaboratoryLake Dmtc[address] [place] [address] Albumin [Mass/Vol] 2.3 g/dL Low 3.5-5.0 [facility] Comment on above: Performed By: #### C GENERATOR MAN ####[facility] LaboratoryLake Brbt[address] [place] [address] Albumin/Globulin [Mass ratio] 0.9 {ratio} Low 1.5-3.0 [facility] Comment on above: Performed By: #### C GENERATOR MAN ####[facility] LaboratoryLake Gexw[address] [place] [address] ALP [Catalytic activity/Vol] 80 U/L Normal 35-125 [facility] Comment on above: Performed By: #### C GENERATOR MAN ####[facility] LaboratoryL[facility] B[address] [place] [address] ALT [Catalytic activity/Vol] Normal 5-40 [facility] Comment on above: Result Comment: 12 Performed at [place] [place] [address] Performed By: #### C GENERATOR MAN ####[facility] LaboratoryL[facility] Efkl[address] [place] [address] Anion gap [Moles/Vol] 10 mmol/L Normal 0-19 [facility] Comment on above: Performed By: #### C GENERATOR MAN ####[facility] LaboratoryLake Dflz[address] [place] [address] AST [Catalytic activity/Vol] 18 U/L Normal 5-40 [facility] Comment on above: Performed By: #### C GENERATOR MAN ####Main LaboratoryLake Vjxl[address] [place] [address] Calcium [Mass/Vol] 8.1 mg/dL Low 8.5-10.4 [facility] Comment on above: Performed By: #### C GENERATOR MAN ####Main LaboratoryLake Jptn[address] [place] [address] Chloride [Moles/Vol] 109 mmol/L High 97-107 [facility] Comment on above: Performed By: #### C GENERATOR MAN ####Main LaboratoryLake Ezco[address] [place] [address] CO2 [Moles/Vol] 24 mmol/L Normal 24-31 [facility] Comment on above: Performed By: #### C GENERATOR MAN ####Main LaboratoryLake Krvw[address] [place] [address] Creatinine [Mass/Vol] 2.3 mg/dL High 0.4-1.6 [facility] Comment on above: Performed By: #### C GENERATOR MAN ####[facility] LaboratoryLainna Opos[address] [place] [address] Globulin (S) [Mass/Vol] 2.7 g/dL Normal 1.9-3.7 [facility] Comment on above: Performed By: #### C GENERATOR MAN ####[facility] LaboratoryLainna Zemw[address] [place] [address] Glucose [Mass/Vol] 138 mg/dL High 65-99 [facility] Comment on above: Performed By: #### C GENERATOR MAN ####[facility] LaboratoryL[facility] Jfiz[address] [place] [address] Potassium [Moles/Vol] 3.8 mmol/L Normal 3.4-5.1 [facility] Comment on above: Performed By: #### C GENERATOR MAN ####[facility] LaboratoryL[facility] Gfnx[address] [place] [address] Protein [Mass/Vol] 5.0 g/dL Low 5.9-7.9 [facility] Comment on above: Performed By: #### C GENERATOR MAN ####Main LaboratoryLake Vzzg[address] [place] [address] Sodium [Moles/Vol] 143 mmol/L Normal 133-145 [facility] Comment on above: Performed By: #### C GENERATOR MAN ####Main LaboratoryLake Rfgr[address] [place] [address] Urea nitrogen [Mass/Vol] 30 mg/dL High 8-25 [facility] Comment on above: Performed By: #### C GENERATOR MAN ####[facility] [place] [address] Urea nitrogen/Creatinine [Mass ratio] 13.0 RATIO Normal 8-21 [facility] Comment on above: Performed By: #### C GENERATOR MAN ####[facility] [place] [address] POCT GLUCOSEon 05-07-2018 Glucose [Mass/Vol] 76 mg/dL Normal 65-99 [facility] Comment on above: Performed By: #### P CGL ####[facility] [place] [address] Glucose [Mass/Vol] 63 mg/dL Low 65-99 [facility] Comment on above: Performed By: #### P CGL ####[facility] [place] [address] Glucose [Mass/Vol] 106 mg/dL High 65-99 [facility] Comment on above: Performed By: #### P CGL ####[facility] [place] [address] Glucose [Mass/Vol] 112 mg/dL High 65-99 [facility] Comment on above: Performed By: #### P CGL ####[facility] [place] [address] Glucose [Mass/Vol] 137 mg/dL High 65-99 [facility] Comment on above: Performed By: #### P CGL ####[facility] [place] [address] Glucose [Mass/Vol] 129 mg/dL High 65-99 [facility] Comment on above: Performed By: #### C GENERATOR MAN #### [facility] [address] [place] [address] POCT GLUCOSEon 05-06-2018 Glucose [Mass/Vol] 186 mg/dL High 65-99 [facility] Comment on above: Performed By: #### C GENERATOR MAN #### [facility] [address] [place] [address] Glucose [Mass/Vol] 162 mg/dL High 65-99 [facility] Comment on above: Performed By: #### C GENERATOR MAN #### [facility] [address] [place] [address] Glucose [Mass/Vol] 105 mg/dL High 65-99 [facility] Comment on above: Performed By: #### C GENERATOR MAN #### [facility] [address] [facility] [address] Glucose [Mass/Vol] 63 mg/dL Low 65-99 [facility] Comment on above: Performed By: #### C GENERATOR MAN #### [facility] [address] [address] Glucose [Mass/Vol] 62 mg/dL Low 65-99 [facility] Comment on above: Performed By: #### C GENERATOR MAN #### [place] [address] [place] [address] Glucose [Mass/Vol] 60 mg/dL Low 65-99 [facility] Comment on above: Performed By: #### C GENERATOR MAN #### [place] [address] [address] [place] [address] Glucose [Mass/Vol] 179 mg/dL High 65-99 [facility] Comment on above: Performed By: #### C GENERATOR MAN #### [place] [address] [place] [address] CBC WITHOUT DIFFon 9 Erythrocyte distribution width (RBC) [Ratio] 13.0 % Normal 11.7-15.0 [facility] Comment on above: Performed By: #### C BCD #### [place] [address] [address] [place] [address] Hematocrit (Bld) [Volume fraction] 32.7 % Low 36-44 [facility] Comment on above: Performed By: #### C BCD #### [place] [address] [address] [place] [address] Hemoglobin (Bld) [Mass/Vol] 10.6 g/dL Low 12.0-15.0 [facility] Comment on above: Performed By: #### C BCD #### [place] [address] [place] [address] MCH (RBC) [Entitic mass] 28.2 pg Normal 26-34 [facility] Comment on above: Performed By: #### C BCD #### [facility] [place] [place] [address] MCHC (RBC) [Mass/Vol] 32.4 % Normal 31-37 [facility] Comment on above: Performed By: #### C BCD #### [facility] [place] [place] [address] MCV (RBC) [Entitic vol] 87.0 fL Normal 80-100 [facility] Comment on above: Performed By: #### C BCD #### [facility] [place] [address] [place] [address] MEAN PLT VOL 11.9 CU Normal 7.0-12.6 [facility] Comment on above: Performed By: #### C BCD #### [facility] [place] [place] [address] NRBC'S Normal 0 [facility] Comment on above: Result Comment: 0 Performed at [place] [address] [facility] [address] Performed By: #### C BCD #### [facility] [place] [place] [address] Platelets (Bld) [#/Vol] 191 10*3/uL Normal 150-450 [facility] Comment on above: Performed By: #### C BCD #### [facility] [place] [address] [place] [address] RBC (Bld) [#/Vol] 3.76 M/UL Low 4.0-4.9 [facility] Comment on above: Performed By: #### C BCD #### [facility] [place] [address] [place] [address] RDW-SD 41.1 FL Normal 37.0-54.0 [facility] Comment on above: Performed By: #### C BCD #### [facility] [place] [address] [place] [address] WBC (Bld) [#/Vol] 6.8 10*3/uL Normal 4.5-11.0 [facility] Comment on above: Performed By: #### C BCD #### [facility] [place] [place] [address] COMPREHENSIVE METABOLIC PANE Jl 05-05-2018 Glucose [Mass/Vol] High 65-99 [facility] Comment on above: Result Comment: 538 RESULT CHECKED VERIPHY Performed By: #### C BCD #### [facility] [place] [place] [address] Albumin [Mass/Vol] 2.2 g/dL Low 3.5-5.0 [facility] Comment on above: Performed By: #### C BCD #### [facility] [place] [address] [place] [address] Albumin/Globulin [Mass ratio] 0.7 {ratio} Low 1.5-3.0 [facility] Comment on above: Performed By: #### C BCD #### [facility] [place] [address] [place] [address] ALP [Catalytic activity/Vol] 86 U/L Normal 35-125 [facility] Comment on above: Performed By: #### C BCD #### [facility] [place] [place] [address] ALT [Catalytic activity/Vol] Normal 5-40 [facility] Comment on above: Result Comment: 10 Performed at [place] [address] [address] [place] [address] Performed By: #### C BCD #### [facility] [place] [address] [facility] [address] Anion gap [Moles/Vol] 13 mmol/L Normal 0-19 [facility] Comment on above: Performed By: #### C BCD #### [facility] [place] [place] [address] AST [Catalytic activity/Vol] 12 U/L Normal 5-40 [facility] Comment on above: Performed By: #### C BCD #### [facility] [place] [place] [address] Bilirubin [Mass/Vol] 0.3 mg/dL Normal 0.1-1.2 [facility] Comment on above: Performed By: #### C BCD #### [facility] [address] [place] [address] Calcium [Mass/Vol] 8.0 mg/dL Low 8.5-10.4 [facility] Comment on above: Performed By: #### C BCD #### [facility] [place] [address] [place] [address] Chloride [Moles/Vol] 103 mmol/L Normal 97-107 [facility] Comment on above: Performed By: #### C BCD #### [facility] [place] [address] [place] [address] CO2 [Moles/Vol] 21 mmol/L Low 24-31 [facility] Comment on above: Performed By: #### C BCD #### [facility] [address] [place] [address] [place] [address] Creatinine [Mass/Vol] 1.9 mg/dL High 0.4-1.6 [facility] Comment on above: Performed By: #### C BCD #### [facility] [place] [address] [place] [address] Globulin (S) [Mass/Vol] 3.0 g/dL Normal 1.9-3.7 [facility] Comment on above: Performed By: #### C BCD #### [place] [address] [place] [address] Potassium [Moles/Vol] 4.1 mmol/L Normal 3.4-5.1 [facility] Comment on above: Performed By: #### C BCD #### [facility] [place] [address] [place] [address] Protein [Mass/Vol] 5.2 g/dL Low 5.9-7.9 [facility] Comment on above: Performed By: #### C BCD #### [facility] [address] [place] [place] [address] Sodium [Moles/Vol] 137 mmol/L Normal 133-145 [facility] Comment on above: Performed By: #### C BCD #### [facility] [place] [address] [place] [address] Urea nitrogen [Mass/Vol] 28 mg/dL High 8-25 [facility] Comment on above: Performed By: #### C BCD #### Main Laboratory [place] [address] [place] [address] Urea nitrogen/Creatinine [Mass ratio] 14.7 RATIO Normal 8-21 [facility] Comment on above: Performed By: #### C BCD #### Main Laboratory [address] [place] [address] HEMOGLOBIN A1con 05-05-2018 HbA1c (Bld) [Mass fraction] High 4.0-6.0 [facility] Comment on above: Result Comment: 9.6 Hemoglobin [...] mg/dl 10% ............................... 240 mg/dl Performed at [address] [facility] [address] Performed By: #### C BCD #### Main Laboratory [place] [address] [place] [address] Lactic Acid Venouson 019 Lactic Acid Venous High 0.9-1.7 [facility] Comment on above: Result Comment: 2.2 VERIPHY Performed at [place] [address] [facility] [address] Performed By: #### C BCD #### [place] [address] [place] [address] POCT GLUCOSEon 05-05-2018 Glucose [Mass/Vol] 245 mg/dL High 65-99 [facility] Comment on above: Performed By: #### C GENERATOR MAN #### [place] [address] [place] [address] Glucose [Mass/Vol] 428 mg/dL High 65-99 [facility] Comment on above: Performed By: #### C BCD #### [place] [address] [place] [address] Glucose [Mass/Vol] 415 mg/dL High 65-99 [facility] Comment on above: Performed By: #### C BCD #### [place] [address] [place] [address] CBC with Diffon 05-04-2018 AB IMMATURE NEUT 0.08 K/UL Normal 0.0-0.1 [facility] Comment on above: Performed By: #### C BCD #### [place] [address] [place] [address] ABS BASO 0.02 K/UL Normal 0.00-0.22 [facility] Comment on above: Performed By: #### C BCD #### [place] [address] [place] [address] ABS EOS 0.02 K/UL Normal 0-0.45 [facility] Comment on above: Performed By: #### C BCD #### [place] [address] [place] [address] ABS NEUTROPHILS 9.90 K/UL High 1.8-7.7 [facility] Comment on above: Performed By: #### C BCD #### [place] [address] [place] [address] ABS.NEUT.CALCULATED Normal [facility] Comment on above: Result Comment: 9.90 Performed at [place] [address] [place] [address] Performed By: #### C BCD #### [place] [address] [place] [address] Basophils/100 WBC (Bld) 0.20 % Normal 0-1 [facility] Comment on above: Performed By: #### C BCD #### [place] [address] [place] [address] DIFF TYPE AUTO DIFF Normal [facility] Comment on above: Performed By: #### C BCD #### [place] [address] [place] [address] Eosinophils/100 WBC (Bld) 0.20 % Normal 0-3 [facility] Comment on above: Performed By: #### C BCD #### [place] [address] [place] [address] Erythrocyte distribution width (RBC) [Ratio] 12.9 % Normal 11.7-15.0 [facility] Comment on above: Performed By: #### C BCD #### [place] [address] [place] [address] Hematocrit (Bld) [Volume fraction] 39.4 % Normal 36-44 [facility] Comment on above: Performed By: #### C BCD #### [place] [address] [place] [address] Hemoglobin (Bld) [Mass/Vol] 13.2 g/dL Normal 12.0-15.0 [facility] Comment on above: Performed By: #### C BCD #### [place] [address] [place] [address] Lymphocytes (Bld) [#/Vol] 1.51 10*3/uL Normal 1.2-3.2 [facility] Comment on above: Performed By: #### C BCD #### [place] [address] [place] [address] Lymphocytes/100 WBC (Bld) 12.20 % Low 20-40 [facility] Comment on above: Performed By: #### C BCD #### [facility] [place] [address] [place] [address] MCH (RBC) [Entitic mass] 28.7 pg Normal 26-34 [facility] Comment on above: Performed By: #### C BCD #### [facility] [place] [address] [place] [address] MCHC (RBC) [Mass/Vol] 33.5 % Normal 31-37 [facility] Comment on above: Performed By: #### C BCD #### [facility] [place] [address] [place] [address] MCV (RBC) [Entitic vol] 85.7 fL Normal 80-100 [facility] Comment on above: Performed By: #### C BCD #### [place] [address] [address] MEAN PLT VOL 11.8 CU Normal 7.0-12.6 [facility] Comment on above: Performed By: #### C BCD #### [place] [address] [place] [address] Monocytes (Bld) [#/Vol] 0.82 10*3/uL High 0-0.8 [facility] Comment on above: Performed By: #### C BCD #### [place] [address] [place] [address] Monocytes/100 WBC (Bld) 6.60 % Normal 0-8 [facility] Comment on above: Performed By: #### C BCD #### [facility] [place] [address] [place] [address] Neutrophils/100 WBC (Bld) 0.60 % Normal 0.0-1.0 [facility] Comment on above: Performed By: #### C BCD #### [facility] [place] [address] [place] [address] Neutrophils/100 WBC (Bld) 80.20 % High 50-70 [facility] Comment on above: Performed By: #### C BCD #### [facility] [place] [address] [place] [address] NRBC'S 0 /100 WBC Normal 0 [facility] Comment on above: Performed By: #### C BCD #### [facility] [address] [place] [address] Platelets (Bld) [#/Vol] 243 10*3/uL Normal 150-450 [facility] Comment on above: Performed By: #### C BCD #### [facility] [place] [address] [place] [address] RBC (Bld) [#/Vol] 4.60 M/UL Normal 4.0-4.9 [facility] Comment on above: Performed By: #### C BCD #### [facility] [place] [address] [place] [address] RDW-SD 40.0 FL Normal 37.0-54.0 [facility] Comment on above: Performed By: #### C BCD #### [facility] [place] [address] [place] [address] WBC (Bld) [#/Vol] 12.4 10*3/uL High 4.5-11.0 [facility] Comment on above: Performed By: #### C BCD #### [facility] [place] [address] [place] [address] COMPREHENSIVE METABOLIC PANE Jl 05-04-2018 Glucose [Mass/Vol] High 65-99 [facility] Comment on above: Result Comment: 591 RESULT CHECKED VERIPHY Performed By: #### C BCD #### [facility] [place] [address] [place] [address] Albumin [Mass/Vol] 2.9 g/dL Low 3.5-5.0 [facility] Comment on above: Performed By: #### C BCD #### [facility] [address] [place] [address] Albumin/Globulin [Mass ratio] 0.8 {ratio} Low 1.5-3.0 [facility] Comment on above: Performed By: #### C BCD #### [facility] [place] [address] [place] [address] ALP [Catalytic activity/Vol] 113 U/L Normal 35-125 [facility] Comment on above: Performed By: #### C BCD #### Main Laboratory [facility] [address] [place] [address] ALT [Catalytic activity/Vol] 13 U/L Normal 5-40 [facility] Comment on above: Performed By: #### C BCD #### [facility] [address] [place] [address] Anion gap [Moles/Vol] 16 mmol/L Normal 0-19 [facility] Comment on above: Performed By: #### C BCD #### [facility] [address] [place] [address] AST [Catalytic activity/Vol] 16 U/L Normal 5-40 [facility] Comment on above: Performed By: #### C BCD #### [facility] [address] [place] [address] Bilirubin [Mass/Vol] 0.3 mg/dL Normal 0.1-1.2 [facility] Comment on above: Performed By: #### C BCD #### [facility] [address] [place] [address] Calcium [Mass/Vol] 8.8 mg/dL Normal 8.5-10.4 [facility] Comment on above: Performed By: #### C BCD #### [facility] [address] [place] [address] Chloride [Moles/Vol] 97 mmol/L Normal 97-107 [facility] Comment on above: Performed By: #### C BCD #### [facility] [address] [place] [address] CO2 [Moles/Vol] 23 mmol/L Low 24-31 [facility] Comment on above: Performed By: #### C BCD #### [facility] [address] [place] [address] Creatinine [Mass/Vol] 1.7 mg/dL High 0.4-1.6 [facility] Comment on above: Performed By: #### C BCD #### [facility] [address] [place] [address] GFR/1.73 sq M.predicted MDRD (S/P/Bld) [Vol rate/Area] Normal [facility] Comment on above: Result Comment: 34 GFR ml/min/1.73m2 Stage ----- 90 1 60-89 2 30-59 3 15-29 4 <15 5 For -Americans, multiply EGFR result by 1.210 Calculation not validated for patients under 18 years of age. Performed at [address] [address] Performed By: #### C BCD #### [address] [address] Globulin (S) [Mass/Vol] 3.5 g/dL Normal 1.9-3.7 [facility] Comment on above: Performed By: #### C BCD #### [address] [address] Potassium [Moles/Vol] 4.0 mmol/L Normal 3.4-5.1 [facility] Comment on above: Performed By: #### C BCD #### [address] [address] Protein [Mass/Vol] 6.4 g/dL Normal 5.9-7.9 [facility] Comment on above: Performed By: #### C BCD #### [address] [address] Sodium [Moles/Vol] 136 mmol/L Normal 133-145 [facility] Comment on above: Performed By: #### C BCD #### [place] [address] [place] [address] Urea nitrogen [Mass/Vol] 30 mg/dL High 8-25 [facility] Comment on above: Performed By: #### C BCD #### [facility] [place] [address] [place] [address] Urea nitrogen/Creatinine [Mass ratio] 17.6 RATIO Normal 8-21 [facility] Comment on above: Performed By: #### C BCD #### [facility] [place] [address] [place] [address] LIPASE PSon 02-05-2019 LIPASE PS Normal 16-63 [facility] Comment on above: Result Comment: 30 Performed at [address] [place] [address] Performed By: #### C BCD #### [facility] [place] [address] [place] [address] Lactic Acid Venouson 019 Lactic Acid Venous High 0.9-1.7 [facility] Comment on above: Result Comment: 4.1 VERIPHY Performed at [address] [place] [address] Performed By: #### L ACV #### [facility] [place] [address] [place] [address] UA-REFLEX TO CULTUREon 05-04 BACT Negative [facility] Comment on above: Performed By: #### U ACUL #### [facility] [place] [address] [place] [address] MICROSCOPIC AUTOMATIC MICROSCOPI C URINES [facility] Comment on above: Performed By: #### U ACUL #### [facility] [place] [address] [facility] [address] RBC 11 /HPF High 0-3 [facility] Comment on above: Performed By: #### U ACUL #### [facility] [place] [address] [place] [address] URINE HYALINE CAST 6 /LPF Normal [facility] Comment on above: Performed By: #### U ACUL #### [facility] [place] [address] [place] [address] URINE SQUAMOUS EPI FEW Normal [facility] Comment on above: Performed By: #### U ACUL #### [facility] [place] [address] [facility] [place] [address] WBC 2 /HPF Normal 0-3 [facility] Comment on above: Performed By: #### U ACUL #### [facility] [place] [address] [place] [address] Bacteria identified Cx Nom (U) [facility] Comment on above: Result Comment: CULT URE NOT INDICATED Performed at [address] [place] [address] Performed By: #### U ACUL #### [facility] [address] [place] [address] BILI Negative Normal NEG [facility] Comment on above: Performed By: #### U ACUL #### [facility] [address] [place] [address] BLOOD SMALL Abnormal NEG [facility] Comment on above: Performed By: #### U ACUL #### [facility] [address] [place] [address] Clarity (U) CLEAR Normal [facility] Comment on above: Performed By: #### U ACUL #### [facility] [address] [place] [address] Color (U) PALE YELLOW [facility] Comment on above: Performed By: #### U ACUL #### [facility] [address] [place] [address] GLUC >=1000 Abnormal NEG [facility] Comment on above: Performed By: #### U ACUL #### [facility] [address] [place] [address] KET Negative Normal NEG [facility] Comment on above: Performed By: #### U ACUL #### [facility] [address] [place] [address] LEUK Negative Normal NEG [facility] Comment on above: Performed By: #### U ACUL #### [facility] [address] [place] [address] NIT Negative Normal NEG [facility] Comment on above: Performed By: #### U ACUL #### [facility] [address] [place] [address] pH (U) 7.0 [pH] Normal 4.6-8.0 [facility] Comment on above: Performed By: #### U ACUL #### [facility] [address] [place] [address] PROT 600 mg/dL Abnormal NEG [facility] Comment on above: Performed By: #### U ACUL #### [facility] [address] [place] [address] SP GRAV,URINE 1.019 Normal 1.005-1.030 [facility] Comment on above: Performed By: #### U ACUL #### [facility] [place] [address] [facility] [address] URO NORMAL Normal 0-1.0 [facility] Comment on above: Performed By: #### U ACUL #### [facility] [place] [address] [place] [address] CBC with Diffon 05-02-2018 AB IMMATURE NEUT 0.03 K/UL Normal 0.0-0.1 [facility] Comment on above: Performed By: #### C BCD #### [facility] [place] [address] [place] [address] ABS BASO 0.03 K/UL Normal 0.00-0.22 [facility] Comment on above: Performed By: #### C BCD #### [facility] [place] [address] [facility] [address] ABS EOS 0.35 K/UL Normal 0-0.45 [facility] Comment on above: Performed By: #### C BCD #### [facility] [place] [address] [place] [address] ABS NEUTROPHILS 4.47 K/UL Normal 1.8-7.7 [facility] Comment on above: Performed By: #### C BCD #### [facility] [place] [address] [address] [place] [address] ABS.NEUT.CALCULATED Normal [facility] Comment on above: Result Comment: 4.47 Performed at [place] [address] [place] [address] Performed By: #### C BCD #### [facility] [place] [address] [place] [address] Basophils/100 WBC (Bld) 0.40 % Normal 0-1 [facility] Comment on above: Performed By: #### C BCD #### [facility] [place] [address] [facility] [place] [address] DIFF TYPE AUTO DIFF Normal [facility] Comment on above: Performed By: #### C BCD #### [facility] [place] [address] [place] [address] Eosinophils/100 WBC (Bld) 5.10 % High 0-3 [facility] Comment on above: Performed By: #### C BCD #### [facility] [address] [place] [address] Erythrocyte distribution width (RBC) [Ratio] 13.2 % Normal 11.7-15.0 [facility] Comment on above: Performed By: #### C BCD #### [facility] [address] [place] [address] Hematocrit (Bld) [Volume fraction] 37.2 % Normal 36-44 [facility] Comment on above: Performed By: #### C BCD #### [place] [address] [place] [address] Hemoglobin (Bld) [Mass/Vol] 12.4 g/dL Normal 12.0-15.0 [facility] Comment on above: Performed By: #### C BCD #### [place] [address] [place] [address] Lymphocytes (Bld) [#/Vol] 1.35 10*3/uL Normal 1.2-3.2 [facility] Comment on above: Performed By: #### C BCD #### [place] [address] [place] [address] Lymphocytes/100 WBC (Bld) 19.70 % Low 20-40 [facility] Comment on above: Performed By: #### C BCD #### [place] [address] [place] [address] MCH (RBC) [Entitic mass] 29.1 pg Normal 26-34 [facility] Comment on above: Performed By: #### C BCD #### [place] [address] [place] [address] MCHC (RBC) [Mass/Vol] 33.3 % Normal 31-37 [facility] Comment on above: Performed By: #### C BCD #### [place] [address] [place] [address] MCV (RBC) [Entitic vol] 87.3 fL Normal 80-100 [facility] Comment on above: Performed By: #### C BCD #### [place] [address] [place] [address] MEAN PLT VOL 11.5 CU Normal 7.0-12.6 [facility] Comment on above: Performed By: #### C BCD #### [facility] [place] [address] [place] [address] Monocytes (Bld) [#/Vol] 0.62 10*3/uL Normal 0-0.8 [facility] Comment on above: Performed By: #### C BCD #### [facility] [place] [address] [place] [address] Monocytes/100 WBC (Bld) 9.10 % High 0-8 [facility] Comment on above: Performed By: #### C BCD #### [facility] [place] [address] [place] [address] Neutrophils/100 WBC (Bld) 65.30 % Normal 50-70 [facility] Comment on above: Performed By: #### C BCD #### [place] [address] [place] [address] Neutrophils/100 WBC (Bld) 0.40 % Normal 0.0-1.0 [facility] Comment on above: Performed By: #### C BCD #### [place] [address] [place] [address] NRBC'S 0 /100 WBC Normal 0 [facility] Comment on above: Performed By: #### C BCD #### [place] [address] [place] [address] Platelets (Bld) [#/Vol] 228 10*3/uL Normal 150-450 [facility] Comment on above: Performed By: #### C BCD #### [facility] [place] [address] [place] [address] RBC (Bld) [#/Vol] 4.26 M/UL Normal 4.0-4.9 [facility] Comment on above: Performed By: #### C BCD #### [facility] [place] [address] [place] [address] RDW-SD 41.7 FL Normal 37.0-54.0 [facility] Comment on above: Performed By: #### C BCD #### [facility] [place] [address] [place] [address] WBC (Bld) [#/Vol] 6.9 10*3/uL Normal 4.5-11.0 [facility] Comment on above: Performed By: #### C BCD #### [facility] [address] [place] [address] [place] [address] COMPREHENSIVE METABOLIC PANE Jl 05-02-2018 Albumin [Mass/Vol] 2.5 g/dL Low 3.5-5.0 [facility] Comment on above: Performed By: #### C GENERATOR MAN #### [facility] [place] [address] [place] [address] Albumin/Globulin [Mass ratio] 0.8 {ratio} Low 1.5-3.0 [facility] Comment on above: Performed By: #### C GENERATOR MAN #### [place] [address] [place] [address] ALP [Catalytic activity/Vol] 102 U/L Normal 35-125 [facility] Comment on above: Performed By: #### C GENERATOR MAN #### [place] [address] [place] [address] ALT [Catalytic activity/Vol] 12 U/L Normal 5-40 [facility] Comment on above: Performed By: #### C GENERATOR MAN #### [facility] [place] [address] [place] [address] Anion gap [Moles/Vol] 13 mmol/L Normal 0-19 [facility] Comment on above: Performed By: #### C GENERATOR MAN #### [facility] [place] [address] [place] [address] AST [Catalytic activity/Vol] 16 U/L Normal 5-40 [facility] Comment on above: Performed By: #### C GENERATOR MAN #### [facility] [address] [place] [address] [place] [address] Bilirubin [Mass/Vol] Normal 0.1-1.2 [facility] Comment on above: Result Comment: 0.2 LESS THAN Performed By: #### C GENERATOR MAN #### [facility] [address] [place] [address] [place] [address] Calcium [Mass/Vol] 8.2 mg/dL Low 8.5-10.4 [facility] Comment on above: Performed By: #### C GENERATOR MAN #### [facility] [address] [address] Chloride [Moles/Vol] 100 mmol/L Normal 97-107 [facility] Comment on above: Performed By: #### C GENERATOR MAN #### [facility] [address] [address] CO2 [Moles/Vol] 25 mmol/L Normal 24-31 [facility] Comment on above: Performed By: #### C GENERATOR MAN #### [facility] [address] [address] Creatinine [Mass/Vol] 1.8 mg/dL High 0.4-1.6 [facility] Comment on above: Performed By: #### C GENERATOR MAN #### [facility] [address] [address] GFR/1.73 sq M.predicted MDRD (S/P/Bld) [Vol rate/Area] Normal [facility] Comment on above: Result Comment: 31 GFR ml/min/1.73m2 Stage ----- 90 1 60-89 2 30-59 3 15-29 4 <15 5 For -Americans, multiply EGFR result by 1.210 Calculation not validated for patients under 18 years of age. Performed at [address] [place] [address] Performed By: #### C GENERATOR MAN #### [address] [address] Globulin (S) [Mass/Vol] 3.2 g/dL Normal 1.9-3.7 [facility] Comment on above: Performed By: #### C GENERATOR MAN #### [facility] [address] [address] Glucose [Mass/Vol] 229 mg/dL High 65-99 [facility] Comment on above: Performed By: #### C GENERATOR MAN #### [facility] [address] [address] Potassium [Moles/Vol] 3.9 mmol/L Normal 3.4-5.1 [facility] Comment on above: Performed By: #### C GENERATOR MAN #### [facility] [id number] [place] [id number] Protein [Mass/Vol] 5.7 g/dL Low 5.9-7.9 [facility] Comment on above: Performed By: #### C GENERATOR MAN #### [facility] [address] [address] Sodium [Moles/Vol] 138 mmol/L Normal 133-145 [facility] Comment on above: Performed By: #### C GENERATOR MAN #### [facility] [address] [address] Urea nitrogen [Mass/Vol] 24 mg/dL Normal 8-25 [facility] Comment on above: Performed By: #### C GENERATOR MAN #### [facility] [address] [address] Urea nitrogen/Creatinine [Mass ratio] 13.3 RATIO Normal 8-21 [facility] Comment on above: Performed By: #### C GENERATOR MAN #### [facility] [address] [address] ELBOW RT MIN 3 VIEWon 2018 ELBOW RT MIN 3 VIEW *FINAL Date of Service: 05/02/2018 17:09 Adm #: [id number] Reading Dr:MIGNON HORTA Signoff Dr: MIGNON HORTA PROCEDURE: ELBOW RT MIN 3 VIEW - [...] Physician: MIGNON HORTA M.D. Original Transcribed [facility] May 02 2018 5:11P Original Electronically Signed by/Date: MIGNON HORTA M.D. May 02 2018 5:11P Addendum Interpreting Physician: Addendum Transcribed by/Date: NO ADDENDUM Addendum Electronically Signed by/Date: [facility] Lactic Acid Venouson 019 Lactic Acid Venous Normal 0.9-1.7 [facility] Comment on above: Result Comment: 1.7 Performed at [address] [address] Performed By: #### L ACV #### [facility] [address] [place] [address] SHOULDER RT MIN 2 VIEWon SHOULDER RT MIN 2 VIEW *FINAL Date of Service: 05/02/2018 17:09 Adm #: [id number] Reading Dr:MIGNON HORTA Signoff Dr: MIGNON HORTA [...] Physician: MIGNON HORTA M.D. Original Transcribed by/Date: [facility] May 02 2018 5:11P Original Electronically Signed by/Date: MIGNON HORTA M.D. May 02 2018 5:11P Addendum Interpreting Physician: Addendum Transcribed by/Date: NO ADDENDUM Addendum Electronically Signed by/Date: Normal [facility] Vital Signs Date Time Vital Sign Value Performing Clinician Facility 07-31-2024 04:57-0400 Diastolic Blood Pressure Non-Invasive 62 mm[Hg] TORRI SARAHI DO [facility] 07-31-2024 04:57-0400 Heart rate 82 /min TORRI MCCLAIN DO [facility] 07-31-2024 04:57-0400 Respiratory rate 18 /min TORRI MCCLAIN DO [facility] 07-31-2024 04:57-0400 Systolic Blood Pressure Non-Invasive 127 mm[Hg] TORRI MCCLAIN DO [facility] 07-31-2024 03:08-0400 Blood Pressure Cuff Size TORRI MCCLAIN DO [facility] 07-31-2024 03:08-0400 Blood Pressure Location TORRI MCCLAIN DO [facility] 07-31-2024 03:08-0400 Blood Pressure Method TORRI MCCLAIN DO [facility] 07-31-2024 03:08-0400 Body height 155 cm TORRI MCCLAIN DO [facility] 07-31-2024 03:08-0400 Body temperature 98.6 [degF] TORRI MCCLAIN DO [facility] 07-31-2024 03:08-0400 Body weight 109.5 kg TORRI MCCLAIN DO [facility] 07-31-2024 03:08-0400 Diastolic Blood Pressure Non-Invasive 80 mm[Hg] TORRI MCCLAIN DO [facility] 07-31-2024 03:08-0400 Heart rate 86 /min TORRI MCCLAIN DO [facility] 07-31-2024 03:08-0400 Respiratory rate 20 /min TORRI MCCLAIN DO [facility] 07-31-2024 03:08-0400 Systolic Blood Pressure Non-Invasive 186 mm[Hg] TORRI MCCLAIN DO [facility] 07-30-2024 14:04-0400 Body temperature 98.6 [degF] DR REENA LAMAS DO [facility] 07-30-2024 14:04-0400 Diastolic Blood Pressure Non-Invasive 76 mm[Hg] DR REENA LAMAS DO [facility] 07-30-2024 14:04-0400 Heart rate 60 /min DR REENA LAMAS DO [facility] 07-30-2024 14:04-0400 Respiratory rate 18 /min DR REENA LAMAS DO [facility] 07-30-2024 14:04-0400 Systolic Blood Pressure Non-Invasive 132 mm[Hg] DR REENA LAMAS DO [facility] 11-18-2023 13:35-0400 Diastolic Blood Pressure Non-Invasive 72 mm[Hg] EVELINA CURTIS MD [facility] 11-18-2023 13:35-0400 Heart rate 75 /min EVELINA CURTIS MD [facility] 11-18-2023 13:35-0400 Respiratory rate 20 /min EVELINA CURTIS MD [facility] 11-18-2023 13:35-0400 Systolic Blood Pressure Non-Invasive 152 mm[Hg] EVELINA CURTIS MD [facility] 11-18-2023 10:45-0400 Blood Pressure Cuff Size EVELINA CURTIS MD [facility] 11-18-2023 10:45-0400 Blood Pressure Location EVELINA CURTIS MD [facility] 11-18-2023 10:45-0400 Blood Pressure Method EVELINA CURTIS MD [facility] 11-18-2023 10:45-0400 Diastolic Blood Pressure Non-Invasive 70 mm[Hg] EVELINA CURTIS MD [facility] 11-18-2023 10:45-0400 Systolic Blood Pressure Non-Invasive 155 mm[Hg] EVELINA CURTIS MD [facility] 11-18-2023 10:33-0400 Heart rate 78 /min EVELINA CURTIS MD [facility] 11-18-2023 10:33-0400 Respiratory rate 26 /min EVELINA CURTIS MD [facility] 11-18-2023 10:210400 Blood Pressure Cuff Size EVELINA CURTIS MD [facility] 11-18-2023 10:210400 Blood Pressure Location EVELINA CURTIS MD [facility] 11-18-2023 10:210400 Blood Pressure Method EVELINA CURTIS MD [facility] 11-18-2023 10:210400 Body temperature 97.7 [degF] EVELINA CURTIS MD [facility] 11-18-2023 10:210400 Diastolic Blood Pressure Non-Invasive 73 mm[Hg] EVELINA CURTIS MD [facility] 11-18-2023 10:210400 Heart rate 77 /min EVELINA CURTIS MD [facility] 11-18-2023 10:210400 Respiratory rate 28 /min EVELINA CURTIS MD [facility] 11-18-2023 10:210400 Systolic Blood Pressure Non-Invasive 161 mm[Hg] EVELINA CURTIS MD [facility] 10-11-2023 21:17-[address] FREDDIE BURRIS DO [facility] 10-11-2023 21:17-[address] FREDDIE BURRIS DO [facility] 10-11-2023 21:17-0400 Body temperature 98.06 [degF] DR FREDDIE BURRIS DO [facility] 10-11-2023 21:17-0400 Diastolic Blood Pressure Non-Invasive 73 mm[Hg] DR FREDDIE BURRIS DO [facility] 10-11-2023 21:17-0400 Heart rate 73 /min DR FREDDIE BURRIS DO [facility] 10-11-2023 21:17-0400 Respiratory rate 18 /min DR FREDDIE BURRIS DO [facility] 10-11-2023 21:17-0400 Systolic Blood Pressure Non-Invasive 158 mm[Hg] DR FERDDIE BURRIS DO [facility] 09-08-2023 10:36-0400 Diastolic blood pressure 71 mm[Hg] Jeremy Aguirre MD, MD Work Phone: [facility] 09-08-2023 10:36-0400 Heart rate 63 /min Jeremy Aguirre MD, MD Work Phone: [facility] 09-08-2023 10:36-0400 Respiratory rate 15 /min Jeremy Aguirre MD, MD Work Phone: [facility] 09-08-2023 10:36-0400 SaO2% (BldA) [Mass fraction] 97 % Jeremy Aguirre MD, MD Work Phone: [facility] 09-08-2023 10:36-0400 Systolic blood pressure 137 mm[Hg] Jeremy Aguirre MD, MD Work Phone: [facility] 07-01-2023 14:57-0400 Body temperature 98.4 [degF] IRONING WORKER-C Denisse Sutton IRONING WORKER Work Phone: [facility] 07-01-2023 14:57-0400 Diastolic blood pressure 62 mm[Hg] IRONING WORKER-C Denisse Sutton IRONING WORKER Work Phone: [facility] 07-01-2023 14:57-0400 Heart rate 67 /min IRONING WORKER-C Denisse Sutton IRONING WORKER Work Phone: [facility] 07-01-2023 14:57-0400 Respiratory rate 16 /min IRONING WORKER-C Denisse Sutton IRONING WORKER Work Phone: [facility] 07-01-2023 14:57-0400 SaO2% (BldA) [Mass fraction] 95 % IRONING WORKER-C Denisse Marcson IRONING WORKER Work Phone: [facility] 07-01-2023 14:57-0400 Systolic blood pressure 131 mm[Hg] IRONING WORKER-C Denisse Sutton IRONING WORKER Work Phone: [facility] 05-27-2023 14:40-0500 Body temperature 98.2 [degF] IRONING WORKER-C Denisse Sutton IRONING WORKER Work Phone: [facility] 05-27-2023 14:40-0500 Diastolic blood pressure 70 mm[Hg] IRONING WORKER-C Denisse Marcson IRONING WORKER Work Phone: [facility] 05-27-2023 14:40-0500 Heart rate 65 /min IRONING WORKER-C Denisse Marcson IRONING WORKER Work Phone: [facility] 05-27-2023 14:40-0500 Respiratory rate 18 /min IRONING WORKER-C Denisse Sutton IRONING WORKER Work Phone: [facility] 05-27-2023 14:40-0500 SaO2% (BldA) [Mass fraction] 97 % IRONING WORKER-C Denisse Sutton IRONING WORKER Work Phone: [facility] 05-27-2023 14:40-0500 Systolic blood pressure 148 mm[Hg] IRONING WORKER-C Denisse Sutton IRONING WORKER Work Phone: [facility] 04-27-2023 14:04-0500 Body temperature 97.8 [degF] IRONING WORKER-C Denisse Sutton IRONING WORKER Work Phone: [facility] 04-27-2023 14:04-0500 Diastolic blood pressure 72 mm[Hg] IRONING WORKER-C Denisse Sutton IRONING WORKER Work Phone: [facility] 04-27-2023 14:04-0500 Heart rate 61 /min IRONING WORKER-C Denisse Sutton IRONING WORKER Work Phone: [facility] 04-27-2023 14:04-0500 Respiratory rate 16 /min IRONING WORKER-C Denisse Sutton IRONING WORKER Work Phone: [facility] 04-27-2023 14:04-0500 SaO2% (BldA) [Mass fraction] 95 % IRONING WORKER-C Denisse Sutton IRONING WORKER Work Phone: [facility] 04-27-2023 14:04-0500 Systolic blood pressure 153 mm[Hg] IRONING WORKER-C Denisse Sutton IRONING WORKER Work Phone: [facility] 04-27-2023 13:25-0500 Inhaled oxygen flow rate 2 L/min IRONING WORKER-C Denisse Sutton IRONING WORKER Work Phone: [facility] 04-27-2023 09:24-0500 Body height 157.48 cm IRONING WORKER-C Denisse Sutton IRONING WORKER Work Phone: [facility] 04-27-2023 09:24-0500 Body mass index (BMI) [Ratio] 41.5 kg/m2 IRONING WORKER-C Denisse Sutton IRONING WORKER Work Phone: [facility] 04-27-2023 09:24-0500 Body weight 103 kg IRONING WORKER-C Denisse Sutton IRONING WORKER Work Phone: [facility] 04-15-2023 14:35-0500 Body temperature 98.2 [degF] IRONING WORKER-C Denisse Sutton IRONING WORKER Work Phone: [facility] 04-15-2023 14:35-0500 Diastolic blood pressure 67 mm[Hg] IRONING WORKER-C Denisse Sutton IRONING WORKER Work Phone: [facility] 04-15-2023 14:35-0500 Heart rate 67 /min IRONING WORKER-C Denisse Sutton IRONING WORKER Work Phone: [facility] 04-15-2023 14:35-0500 Respiratory rate 18 /min IRONING WORKER-C Denisse Sutton IRONING WORKER Work Phone: [facility] 04-15-2023 14:35-0500 SaO2% (BldA) [Mass fraction] 98 % IRONING WORKER-C Denisse Sutton IRONING WORKER Work Phone: [facility] 04-15-2023 14:35-0500 Systolic blood pressure 146 mm[Hg] IRONING WORKER-C Denisse Sutton IRONING WORKER Work Phone: [facility] 04-07-2023 11:36-0500 Body weight 95.25 kg IRONING WORKER-C Denisse Sutton IRONING WORKER Work Phone: [facility] 04-07-2023 09:40-0500 Body mass index (BMI) [Ratio] 42.2 kg/m2 IRONING WORKER-C Denisse Sutton IRONING WORKER Work Phone: [facility] 04-07-2023 09:40-0500 Body temperature 98.6 [degF] IRONING WORKER-C Denisse Sutton IRONING WORKER Work Phone: [facility] 04-07-2023 09:40-0500 Diastolic blood pressure 66 mm[Hg] IRONING WORKER-C Denisse Sutton IRONING WORKER Work Phone: [facility] 04-07-2023 09:40-0500 Heart rate 64 /min IRONING WORKER-C Denisse Sutton IRONING WORKER Work Phone: [facility] 04-07-2023 09:40-0500 Respiratory rate 18 /min IRONING WORKER-C Denisse Sutton IRONING WORKER Work Phone: [facility] 04-07-2023 09:40-0500 SaO2% (BldA) [Mass fraction] 94 % IRONING WORKER-C Denisse Sutton IRONING WORKER Work Phone: [facility] 04-07-2023 09:40-0500 Systolic blood pressure 137 mm[Hg] IRONING WORKER-C Denisse Sutton IRONING WORKER Work Phone: [facility] 02-11-2023 11:13-0500 Body temperature 98.6 [degF] IRONING WORKER-C Denisse Sutton IRONING WORKER Work Phone: [facility] 02-11-2023 11:13-0500 Body weight 102.96 kg IRONING WORKER-C Denisse Sutton IRONING WORKER Work Phone: [facility] 02-11-2023 11:13-0500 Diastolic blood pressure 68 mm[Hg] IRONING WORKER-C Denisse Sutton IRONING WORKER Work Phone: [facility] 02-11-2023 11:13-0500 Heart rate 67 /min IRONING WORKER-C Denisse Sutton IRONING WORKER Work Phone: [facility] 02-11-2023 11:13-0500 Respiratory rate 16 /min IRONING WORKER-C Denisse Sutton IRONING WORKER Work Phone: [facility] 02-11-2023 11:13-0500 SaO2% (BldA) [Mass fraction] 96 % IRONING WORKER-C Denisse Sutton IRONING WORKER Work Phone: [facility] 02-11-2023 11:13-0500 Systolic blood pressure 136 mm[Hg] IRONING WORKER-C Denisse Sutton IRONING WORKER Work Phone: [facility] 01-22-2023 09:27-0400 Body height 157.48 cm IRONING WORKER-C Denisse Sutton IRONING WORKER Work Phone: [facility] 01-22-2023 09:27-0400 Body mass index (BMI) [Ratio] 39.6 kg/m2 IRONING WORKER-C Denisse Sutton IRONING WORKER Work Phone: [facility] 01-22-2023 09:27-0400 Body weight 98.3 kg IRONING WORKER-C Denisse Lesley IRONING WORKER Work Phone: [facility] 12-10-2022 15:23-0400 Body temperature 98.4 [degF] IRONING WORKER-C Denisse Lesley IRONING WORKER Work Phone: [facility] 12-10-2022 15:23-0400 Body weight 103.87 kg IRONING WORKER-C Denisse Sutton IRONING WORKER Work Phone: [facility] 12-10-2022 15:23-0400 Diastolic blood pressure 76 mm[Hg] IRONING WORKER-C Denisse Sutton IRONING WORKER Work Phone: [facility] 12-10-2022 15:23-0400 Heart rate 70 /min IRONING WORKER-C Denisse Sutton IRONING WORKER Work Phone: [facility] 12-10-2022 15:23-0400 Respiratory rate 16 /min IRONING WORKER-C Denisse Sutton IRONING WORKER Work Phone: [facility] 12-10-2022 15:23-0400 SaO2% (BldA) [Mass fraction] 96 % IRONING WORKER-C Denisse Sutton IRONING WORKER Work Phone: [facility] 12-10-2022 15:23-0400 Systolic blood pressure 132 mm[Hg] IRONING WORKER-C Denisse Sutton IRONING WORKER Work Phone: [facility] 11-18-2022 11:20-0400 Body temperature 97.7 [degF] LEE CASH MD [facility] 11-18-2022 11:20-0400 Diastolic Blood Pressure Non-Invasive 66 1 LEE CASH MD [facility] 11-18-2022 11:20-0400 Heart rate 60 /min LEE CASH MD [facility] 11-18-2022 11:20-0400 Respiratory rate 16 /min LEE CASH MD [facility] 11-18-2022 11:20-0400 Systolic Blood Pressure Non-Invasive 132 1 LEE CASH MD [facility] 11-18-2022 10:45-0400 Diastolic Blood Pressure Non-Invasive 68 1 LEE CASH MD [facility] 11-18-2022 10:45-0400 Heart rate 60 /min LEE CASH MD [facility] 11-18-2022 10:45-0400 Respiratory rate 18 /min LEE CASH MD [facility] 11-18-2022 10:45-0400 Systolic Blood Pressure Non-Invasive 141 1 LEE CASH MD [facility] 11-18-2022 10:40-0400 Diastolic Blood Pressure Non-Invasive 68 1 LEE CASH MD [facility] 11-18-2022 10:40-0400 Heart rate 61 /min LEE CASH MD [facility] 11-18-2022 10:40-0400 Respiratory rate 17 /min LEE CASH MD [facility] 11-18-2022 10:40-0400 Systolic Blood Pressure Non-Invasive 144 1 LEE CASH MD [facility] 11-18-2022 10:25-0400 Blood Pressure Cuff Size LEE CASH MD [facility] 11-18-2022 10:25-0400 Blood Pressure Location LEE CASH MD [facility] 11-18-2022 10:25-0400 Blood Pressure Method LEE CASH MD [facility] 11-18-2022 08:16-0400 Body height 154.9 cm LEE CASH MD [facility] 11-18-2022 08:16-0400 Body weight 101 kg LEE CASH MD [facility] 11-18-2022 08:07-0400 Body temperature 97.16 [degF] LEE CASH MD [facility] 11-18-2022 08:07-0400 Heart rate 66 /min LEE CASH MD [facility] 11-10-2022 22:31-0400 Body temperature 98.6 [degF] CALDERON PHAN DO [facility] 11-10-2022 22:31-0400 Body weight 102.3 kg CALDERON PRUETTT [facility] 11-10-2022 22:31-0400 Diastolic Blood Pressure Non-Invasive 77 1 CALDERON PHAN DO [facility] 11-10-2022 22:31-0400 Heart rate 70 /min CALDERON PHAN DO [facility] 11-10-2022 22:31-0400 Respiratory rate 16 /min CALDERON PHAN DO [facility] 11-10-2022 22:31-0400 Systolic Blood Pressure Non-Invasive 126 1 CALDERON PHAN DO [facility] 10-24-2022 14:29-0400 Blood Pressure Cuff Size DR TOÑITO COVINGTON MD [facility] 10-24-2022 14:29-[address] TOÑITO COVINGTON MD [facility] 10-24-2022 14:29-[address] TOÑITO COVINGTON MD [facility] 10-24-2022 14:29-0400 Body temperature 97.88 [degF] DR TOÑITO COVINGTON MD [address] [place] [address] 10-24-2022 14:29-0400 Diastolic Blood Pressure Non-Invasive [address] TOÑITO COVINGTON MD [address] [place] [address] 10-24-2022 14:29-0400 Heart rate 64 /min DR TOÑITO COVINGTON MD [address] [place] [id number] 10-24-2022 14:29-0400 Reason For Taking VItal Signs DR TOÑITO COVINGTON MD [address] [place] [address] 10-24-2022 14:29-0400 Respiratory rate 18 /min DR TOÑITO COVINGTON MD [address] [place] [address] 10-24-2022 14:29-0400 Systolic Blood Pressure Non-Invasive [address] TOÑITO COVINGTON MD [address] [place] [address] 10-24-2022 09:26-0400 Reason For Taking VItal Signs DR TOÑITO COVINGTON MD [address] [place] [address] 10-24-2022 08:00-0400 Body temperature 96.8 [degF] DR TOÑITO COVINGTON MD [address] [place] [address] 10-24-2022 08:00-0400 Diastolic Blood Pressure Non-Invasive [address] TOÑITO COVINGTON MD [address] [place] [address] 10-24-2022 08:00-0400 Respiratory rate 16 /min DR TOÑITO COVINGTON MD [address] [place] [address] 10-24-2022 08:00-0400 Systolic Blood Pressure Non-Invasive [address] TOÑITO COVINGTON MD [address] [place] [address] 10-24-2022 04:14-0400 Body height 157.[address] TOÑITO COVINGTON MD [address] [place] [address] 10-24-2022 04:14-0400 Body temperature 96.98 [degF] DR TOÑITO COVINGTON MD [address] [place] [address] 10-24-2022 04:14-0400 Body weight 101.[address] TOÑITO COVINGTON MD [address] [place], [place] [id number] 04:14-0400 Body weight 40.92 kg/m2 DR TOÑITO COVINGTON MD [address] [place] [address] 10-24-2022 04:14-0400 Diastolic Blood Pressure Non-Invasive [address] TOÑITO COVINGTON MD [address] [place] [address] 10-24-2022 04:14-0400 Heart rate 64 /min DR TOÑITO COVINGTON MD [address] [place] [address] 10-24-2022 04:14-0400 Reason For Taking VItal Signs DR TOÑITO COVINGTON MD [address] [place] [address] 10-24-2022 04:14-0400 Respiratory rate 18 /min DR TOÑITO COVINGTON MD [address] [place] [address] 10-24-2022 04:14-0400 Systolic Blood Pressure Non-Invasive [address] TOÑITO COVINGTON MD [address] [place] [address] 10-24-2022 03:16-0400 Heart rate 63 /min DR TOÑITO COVINGTON MD [address] [place] [address] 10-24-2022 00:58-0400 Heart rate 60 /min DR TOÑITO COVINGTON MD [address] [place] [address] 10-23-2022 23:18-0400 Heart rate 63 /min DR TOÑITO COVINGTON MD [address] [place] [address] 10-23-2022 14:50-0400 Body temperature 97.7 [degF] DR TOÑITO COVINGTON MD [address] [place] [address] 10-23-2022 14:50-0400 Body weight [address] TOÑITO COVINGTON MD [address] [place] [address] 08-29-2022 01:50-0400 Diastolic Blood Pressure Non-Invasive [address] FREDDIE BURRIS DO [facility] 08-29-2022 01:50-0400 Heart rate 70 /min DR FREDDIE BURRIS DO [facility] 08-29-2022 01:50-0400 Respiratory rate 18 /min DR FREDDIE BURRIS DO [facility] 08-29-2022 01:50-0400 Systolic Blood Pressure Non-Invasive [address] FREDDIE BURRIS DO [facility] 08-28-2022 23:41-0400 Blood Pressure Cuff Size DR FREDDIE BURRIS DO [facility] 08-28-2022 23:41-[address] FREDDIE BURRIS DO [facility] 08-28-2022 23:41-[address] FREDDIE BURRIS DO [facility] 08-28-2022 23:41-0400 Body height [address] FREDDIE BURRIS DO [facility] 08-28-2022 23:41-0400 Body temperature 98.06 [degF] DR FREDDIE BURRIS DO [facility] 08-28-2022 23:41-0400 Body weight [address] FREDDIE BURRIS DO [facility] 08-28-2022 23:41-0400 Diastolic Blood Pressure Non-Invasive [address] FREDDIE BURRIS DO [facility] 08-28-2022 23:41-0400 Heart rate 74 /min DR FREDDIE BURRIS DO [facility] 08-28-2022 23:41-0400 Reason For Taking VItal Signs DR FREDDIE BURRIS DO [facility] 08-28-2022 23:41-0400 Respiratory rate 20 /min DR FREDDIE BURRIS DO [facility] 08-28-2022 23:41-0400 Systolic Blood Pressure Non-Invasive [address] FREDDIE BURRIS DO [facility] 08-11-2022 15:05-0400 Heart rate 60 /min DR NATE CROW MD [facility] 08-11-2022 15:05-0400 Respiratory rate 16 /min DR NATE CROW MD [address] 08-11-2022 09:58-0400 Blood Pressure Cuff Size DR NATE CROW MD [address] 08-11-2022 09:58-[address] NATE CROW MD [address] 08-11-2022 09:58-[address] NATE CROW MD [address] 08-11-2022 09:58-0400 Diastolic Blood Pressure Non-Invasive [address] NATE CROW MD [address] 08-11-2022 09:58-0400 Heart rate 60 /min DR NATE CROW MD [address] 08-11-2022 09:58-0400 Respiratory rate 16 /min DR NATE CROW MD [address] 08-11-2022 09:58-0400 Systolic Blood Pressure Non-Invasive [address] NATE CROW MD [facility] 08-11-2022 09:40-[address] Cuff Size DR NATE CROW MD [address] 08-11-2022 09:40-[address] NATE CROW MD [facility] 08-11-2022 09:40-[address] NATE CROW MD [address] 08-11-2022 09:40-0400 Diastolic Blood Pressure Non-Invasive [address] NATE CROW MD [address] [place] [address] 08-11-2022 09:40-0400 Heart rate 56 /min DR NATE CROW MD [address] [place] [address] 08-11-2022 09:40-0400 Respiratory rate 16 /min DR NATE CROW MD [address] [place] [address] 08-11-2022 09:40-0400 Systolic Blood Pressure Non-Invasive [address] NATE CROW MD [address] [place] [address] 08-11-2022 09:28-0400 Diastolic Blood Pressure Non-Invasive [address] NATE CROW MD [address] [place] [address] 08-11-2022 09:28-0400 Systolic Blood Pressure Non-Invasive [address] NATE CROW MD [address] [place] [address] 08-11-2022 06:21-04[address] Cuff Size DR NATE CROW MD [address] [place] [address] 08-11-2022 06:21-[address] NATE CROW MD [address] [place] [address] 08-11-2022 06:21-[address] NATE CROW MD [address] [place] [address] 08-11-2022 06:21-0400 Body height [address] NATE CROW MD [address] [place] [address] 08-11-2022 06:21-0400 Body temperature 97.88 [degF] DR NATE CROW MD [address] [place] [address] 08-11-2022 06:21-0400 Body weight 102.[address] NATE CROW MD [address] [place] [address] 07-23-2022 16:34-0400 Body temperature 98.2 [degF] IRONING WORKERRaiza Sutton IRONING WORKER Work Phone: [facility] 07-23-2022 16:34-0400 Heart rate 66 /min IRONING WORKER-Julian Sutton IRONING WORKER Work Phone: [facility] 07-23-2022 16:34-0400 Respiratory rate 15 /min IRONING WORKER-C Denisse Sutton IRONING WORKER Work Phone: [facility] 07-23-2022 16:34-0400 SaO2% (BldA) [Mass fraction] 96 % IRONING WORKER-C Denisse Sutton IRONING WORKER Work Phone: [facility] 07-23-2022 15:15-0400 Diastolic blood pressure 60 mm[Hg] IRONING WORKER-C Denisse Sutton IRONING WORKER Work Phone: [facility] 07-23-2022 15:15-0400 Systolic blood pressure 131 mm[Hg] IRONING WORKER-C Denisse Sutton IRONING WORKER Work Phone: [facility] 07-23-2022 12:47-0400 Body height 157.48 cm IRONING WORKER-C Denisse Sutton IRONING WORKER Work Phone: [facility] 07-23-2022 12:47-0400 Body weight 98.3 kg IRONING WORKER-C Denisse Sutton IRONING WORKER Work Phone: [facility] 07-22-2022 18:59-0400 Body mass index (BMI) [Ratio] 39.6 kg/m2 IRONING WORKER-C Denisse Sutton IRONING WORKER Work Phone: [facility] 07-15-2022 14:43-0400 Heart rate 77 /min IRONING WORKER-C Denisse Sutton IRONING WORKER Work Phone: [facility] 07-15-2022 14:43-0400 Respiratory rate 21 /min IRONING WORKER-C Denisse Sutton IRONING WORKER Work Phone: [facility] 07-15-2022 14:00-0400 SaO2% (BldA) [Mass fraction] 91 % IRONING WORKER-C Denisse Sutton IRONING WORKER Work Phone: [facility] 07-15-2022 13:23-0400 Body temperature 98.3 [degF] IRONING WORKER-C Denisse Sutton IRONING WORKER Work Phone: [facility] 07-15-2022 13:23-0400 Diastolic blood pressure 74 mm[Hg] IRONING WORKER-C Denisse Sutton IRONING WORKER Work Phone: [facility] 07-15-2022 13:23-0400 Systolic blood pressure 134 mm[Hg] IRONING WORKER-C Denisse Sutton IRONING WORKER Work Phone: [facility] 07-15-2022 11:58-0400 Body height 154.94 cm IRONING WORKER-C Denisse Sutton IRONING WORKER Work Phone: [facility] 07-15-2022 11:58-0400 Body weight 101.4 kg IRONING WORKER-C Denisse Sutton IRONING WORKER Work Phone: [facility] 07-15-2022 06:00-0400 Body mass index (BMI) [Ratio] 42.2 kg/m2 IRONING WORKER-C Denisse Sutton IRONING WORKER Work Phone: [facility] 07-14-2022 12:30-0400 Inhaled oxygen flow rate 2 L/min IRONING WORKER-Julian Sutton IRONING WORKER Work Phone: [facility] 07-12-2022 16:01-0400 Body temperature 97.5 [degF] [facility] 07-12-2022 16:01-0400 Diastolic blood pressure 66 mm[Hg] [facility] 07-12-2022 16:01-0400 Heart rate 61 /min [facility] 07-12-2022 16:01-0400 Respiratory rate 18 /min [facility] 07-12-2022 16:01-0400 SaO2% (BldA) [Mass fraction] 94 % [facility] 07-12-2022 16:01-0400 Systolic blood pressure 134 mm[Hg] [facility] 07-12-2022 12:54-0400 Body height 154.94 cm [facility] 07-12-2022 12:54-0400 Body mass index (BMI) [Ratio] 41.3 kg/m2 [facility] 07-12-2022 12:54-0400 Body weight 99.2 kg [facility] 07-08-2022 15:41-0400 Body height 155 cm DORIAN JAUREGUI MD [facility] 07-08-2022 15:41-0400 Body temperature 98.42 [degF] DORIAN JAUREGUI MD [facility] 07-08-2022 15:41-0400 Body weight 98 kg DORIAN JAUREGUI MD [facility] 07-08-2022 15:41-0400 Diastolic Blood Pressure Non-Invasive 63 1 DORIAN JAUREGUI MD [facility] 07-08-2022 15:41-0400 Heart rate 63 /min DORIAN JAUREGUI MD [facility] 07-08-2022 15:41-0400 Systolic Blood Pressure Non-Invasive 115 1 DORIAN JAUREGUI MD [facility] 02-25-2022 15:05-0500 Diastolic Blood Pressure Non-Invasive 78 1 JOSEKEVIN OKEEFE DO [facility] 02-25-2022 15:05-0500 Heart rate 59 /min JOSE OKEEFE DO [facility] 02-25-2022 15:05-0500 Systolic Blood Pressure Non-Invasive 126 1 JOSE OKEEFE DO [facility] 02-25-2022 14:30-0500 Diastolic Blood Pressure Non-Invasive 71 1 JOSE OKEEFE DO [facility] 02-25-2022 14:30-0500 Heart rate 60 /min JOSE OKEEFE DO [facility] 02-25-2022 14:30-0500 Systolic Blood Pressure Non-Invasive 140 1 JOSE OKEEFE DO [facility] 02-25-2022 14:10-0500 Diastolic Blood Pressure Non-Invasive 58 1 JOSE OKEEFE DO [facility] 02-25-2022 14:10-0500 Heart rate 55 /min JOSE DEGENFLOYD DO [facility] 02-25-2022 14:10-0500 Respiratory rate 16 /min JOSE DEGENHARD DO [facility] 02-25-2022 14:10-0500 Systolic Blood Pressure Non-Invasive 124 1 JOSE DEGENHARD DO [facility] 02-25-2022 13:40-0500 Heart rate 56 /min JOSE DEGENHARD DO [facility] 02-25-2022 13:40-0500 Respiratory rate 15 /min JOSE DEGENHARD DO [facility] 02-25-2022 13:25-0500 Heart rate 56 /min JOSE DEGENFLOYD DO [facility] 02-25-2022 13:25-0500 Respiratory rate 16 /min JOSE DEGENFLOYD DO [facility] 02-25-2022 09:05-0500 Body height 155 cm JOSE DEGENFLOYD DO [facility] 02-25-2022 09:05-0500 Body temperature 97.16 [degF] JOSE DEGENFLOYD DO [facility] 02-25-2022 09:05-0500 Body weight 95.9 kg JOSE DEGENHARD DO [facility] 02-25-2022 09:05-0500 Body weight 39.92 kg/m2 JOSE DEGENHARD DO [facility] 02-25-2022 09:05-0500 diastolic 67 mm[Hg] JOSE DEGENHARD DO [facility] 02-25-2022 09:05-0500 systolic 129 mm[Hg] JOSE DEGENHARD DO [facility] 12-15-2021 17:22-0400 Diastolic blood pressure 75 mm[Hg] RADHA HUMPHREYS MD [address] [place] [address] 12-15-2021 17:22-0400 Systolic blood pressure 131 mm[Hg] RADHA HUMPHREYS MD [address] 12-15-2021 15:07-0400 Heart rate 80 /min RADHA HUMPHREYS MD [address] [place] [address] 12-15-2021 15:07-0400 Respiratory rate 18 /min RADHA HUMPHREYS MD [address] [place] [address] 12-15-2021 14:55-0400 Body temperature 98.24 [degF] RADHA HUMPHREYS MD [address] [place] [address] 12-15-2021 14:55-0400 Diastolic blood pressure 80 mm[Hg] RADHA HUMPHREYS MD [address] [place] [address] 12-15-2021 14:55-0400 Heart rate 62 /min RADHA HUMPHREYS MD [address] 12-15-2021 14:55-0400 Respiratory rate 16 /min RADHA HUMPHREYS MD [address] 12-15-2021 14:55-0400 Systolic blood pressure 137 mm[Hg] RADHA HUMPHREYS MD [address] [place] [address] 12-15-2021 11:41-0400 Body temperature 98.06 [degF] RADHA HUMPHREYS MD [address] [place] [address] 12-15-2021 11:41-0400 Diastolic blood pressure 70 mm[Hg] RADHA HUMPHREYS MD [address] [place] [address] 12-15-2021 11:41-0400 Heart rate 61 /min RADHA HUMPHREYS MD [address] [place] [address] 12-15-2021 11:41-0400 Reason For Taking VItal Signs RADHA HUMPHREYS MD [address] [place] [address] 12-15-2021 11:41-0400 Respiratory rate 16 /min RADHA HUMPHREYS MD [address] [place] [address] 12-15-2021 11:41-0400 Systolic blood pressure 123 mm[Hg] RADHA HUMPHREYS MD [address] [place] [address] 12-15-2021 08:00-0400 Heart rate 58 /min RADHA HUMPHREYS MD [address] [place] [address] 12-15-2021 08:00-0400 Mean blood pressure 79 mm[Hg] RADHA HUMPHREYS MD [address] [place] [address] 12-15-2021 07:31-0400 Heart rate 85 /min RADHA HUMPHREYS MD [address] [place] [address] 12-15-2021 03:08-0400 Heart rate 61 /min RADHA HUMPHREYS MD [address] [place] [address] 12-15-2021 03:08-0400 Mean blood pressure 85 mm[Hg] RADHA HUMPHREYS MD [address] [place] [address] 12-15-2021 03:08-0400 Reason For Taking VItal Signs RADHA HUMPHREYS MD [address] [place] [address] 12-14-2021 19:20-0400 Mean blood pressure 86 mm[Hg] RADHA HUMPHREYS MD [address] [place] [address] 12-14-2021 15:28-0400 Body weight 97.4 kg RADHA HUMPHREYS MD [address] [place] [address] 12-14-2021 11:41-0400 Body weight 99.7 kg RADHA HUMPHREYS MD [address] [place] [address] 12-14-2021 11:41-0400 Diastolic Blood Pressure NBP 60 1 RADHA HUMPHREYS MD [address] [place] [address] 12-14-2021 11:41-0400 Systolic Blood Pressure NBP 127 1 RADHA HUMPHREYS MD [facility] 12-13-2021 17:24-0400 Body height 160 cm RADHA HUMPHREYS MD [facility] 12-13-2021 17:24-0400 Body weight 100 kg RADHA HUMPHREYS MD [facility] 12-13-2021 17:24-0400 Body weight 39.06 kg/m2 RADHA HUMPHREYS MD [facility] 12-13-2021 13:47-0400 Diastolic blood pressure 69 mm[Hg] EVELINA CURTIS MD [facility] 12-13-2021 13:47-0400 Heart rate 61 /min EVELINA CURTIS MD [facility] 12-13-2021 13:47-0400 Systolic blood pressure 141 mm[Hg] EVELINA CURTIS MD [facility] 12-13-2021 13:38-0400 Diastolic blood pressure 64 mm[Hg] EVELINA CURTIS MD [facility] 12-13-2021 13:38-0400 Heart rate 60 /min EVELINA CURTIS MD [facility] 12-13-2021 13:38-0400 Systolic blood pressure 135 mm[Hg] EEVLINA CURTIS MD [facility] 12-13-2021 12:19-0400 Diastolic blood pressure 69 mm[Hg] EVELINA CURTIS MD [facility] 12-13-2021 12:19-0400 Heart rate 62 /min EVELINA CURTIS MD [facility] 12-13-2021 12:19-0400 Systolic blood pressure 159 mm[Hg] EVELINA CURTIS MD [facility] 12-13-2021 10:11-0400 Respiratory rate 22 /min EVELINA CURTIS MD [facility] 12-13-2021 07:14-0400 Respiratory rate 21 /min EVELINA CURTIS MD [facility] 12-13-2021 06:16-0400 Mean blood pressure 86 mm[Hg] EVELINA CURTIS MD [facility] 12-13-2021 06:16-0400 Respiratory rate 24 /min EVELINA CURTIS MD [facility] 12-13-2021 04:31-0400 Body temperature 99.32 [degF] EVELINA CURTIS MD [facility] 11-04-2021 14:50-0400 Body height [address] DEAN SHAH MD [facility] 11-04-2021 14:50-0400 Body temperature 98.06 [degF] DR DEAN SHAH MD [facility] 11-04-2021 14:50-0400 Body weight [address] DEAN SHAH MD [facility] 11-04-2021 14:50-0400 Diastolic blood pressure 79 mm[Hg] DR DEAN SHAH MD [facility] 11-04-2021 14:50-0400 Heart rate 68 /min DR DEAN SHAH MD [facility] 11-04-2021 14:50-0400 Respiratory rate 20 /min DR DEAN SHAH MD [facility] 11-04-2021 14:50-0400 Systolic blood pressure 154 mm[Hg] DR DEAN SHAH MD [facility] 08-30-2021 13:09-0400 Body height 160.02 cm Macarena S Luis Work Phone: CQ-Bfmrncuive-Quw her Work Phone: 08-30-2021 13:09-0400 Body mass index (BMI) [Ratio] 37.73 kg/m2 Macarena S Luis Work Phone: GW-Gciumiwyvo-Gwd her Work Phone: 08-30-2021 13:09-0400 Body surface area Derived from formula 1.99 m2 Macarena S Luis Work Phone: LZ-Aigeuflhzw-Wtf her Work Phone: 08-30-2021 13:09-0400 Body temperature 97.7 [degF] Macarena S Luis Work Phone: JN-Vqhpksdzqb-Ybs her Work Phone: 08-30-2021 13:09-0400 Body weight 96.62 kg Macarena S Luis Work Phone: LZ-Vernsxixdu-Cbo her Work Phone: 08-30-2021 13:09-0400 Diastolic blood pressure 72 mm[Hg] Macarena S Luis Work Phone: ND-Wopxztynee-Urp her Work Phone: 08-30-2021 13:09-0400 Heart rate 62 /min Macarena S Luis Work Phone: VF-Hncasqejnk-Oci her Work Phone: 08-30-2021 13:09-0400 SaO2% (BldA) [Mass fraction] 95 % Macarena S Luis Work Phone: LH-Ffhuhcwqce-Gpy her Work Phone: 08-30-2021 13:09-0400 Systolic blood pressure 116 mm[Hg] Macarena S Luis Work Phone: QL-Xwhhvkqhgt-Ovv her Work Phone: 08-30-2021 13:09-0400 0 1 Macarena S Luis Work Phone: AA-Rlcfeoxaau-Dmj her Work Phone: Comment on above: [employer] 05-10-2018 13:52-0500 Body temperature 98.6 [degF] [facility] Comment on above: Performed By: #### UACUL #### [address] [address] 05-09-2018 17:45-0500 Body temperature 98.6 [degF] [facility] Comment on above: Performed By: #### CBCD #### [address] [address] 05-08-2018 17:35-0500 Body temperature 98.6 [degF] [facility] Comment on above: Performed By: #### ABG ####[address] [address] Encounters Encounter Date Encounter Type Care Provider Facility Start: 10-03-2024 ambulatory DENISSE SUTTON Facility :[facility] Start: 09-22-2024 ambulatory DENISSE SUTTON Facility :[facility] Start: 08-16-2024 End: 08-16-2024 ambulatory DENISSE SUTTON Facility:[facility] Start: 08-16-2024 End: 08-16-2024 Patient encounter procedure DENISSE SUTTON FURNACE ROASTER-STITCHER HAND [facility] Start: 07-31-2024 ambulatory Denisse Sutton IRONING WORKER Facil ity:[facility] Start: 07-31-2024 End: 08-02-2024 Evaluation and management of inpatient Georgina Gill Facility:[facility] Start: 07-31-2024 End: 07-31-2024 Emergency department patient visit TORRI MCCLAIN DO [facility] Start: 07-30-2024 End: 07-30-2024 Emergency department patient visit DR REENA LAMAS DO [facility] Start: 04-20-2024 End: 04-20-[address] NATE CROW MD Facility:[facility] Start: 04-20-2024 End: 04-20-[address] NATE CROW MD [facility] Start: 03-14-2024 End: 03-14-2024 Emergency department patient visit Denisse Sutton NP Facility:[facility] Start: 03-12-2024 End: 03-12-2024 Emergency department patient visit Denisse Sutton NP Facility:[facility] Start: 01-20-2024 End: 01-20-2024 ambulatory DENISSE SUTTON Facility:[facility] Start: 01-20-2024 End: 01-20-2024 Patient encounter procedure DENISSE SUTTON FURNACE ROASTER-STITCHER HAND [facility] Start: 12-14-2023 ambulatory Jayaprakas Bárbara Facil ity:[facility] Start: 12-14-2023 End: 12-18-2023 Evaluation and management of inpatient Mahamed Shaun Facility:[facility] Start: 11-18-2023 ambulatory Denisse Sutton IRONING WORKER Facil ity:[facility] Start: 11-18-2023 End: 11-21-2023 Evaluation and management of inpatient Denisse Sutton IRONING WORKER Facility:[facility] Start: 11-18-2023 End: 11-18-2023 Emergency department patient visit EVELINA CURTIS MD [facility] Start: 11-05-2023 End: 11-05-2023 ambulatory DENISSE SUTTON F[employer]NACE RO[employer]ER-STITCHER HAND Facility:[facility] Start: 11-05-2023 End: 11-05-2023 Patient encounter procedure DENISSE SUTTON FURNACE ROASTER-STITCHER HAND [facility] Start: 10-14-2023 ambulatory DENISSE SUTTON FURNACE ROASTER-STITCHER HAND Facility:[facility] Start: 10-11-2023 End: 10-11-2023 Emergency department patient visit DR FREDDIE BURRIS DO [facility] Start: 10-09-2023 ambulatory DENISSE SUTTON F[employer]NACE ROASTER-STITCHER HAND Facility:[facility] Start: 09-10-2023 ambulatory DENISSE SUTTON FURNACE ROASTER-STITCHER HAND Facility:[facility] Start: 09-08-2023 ambulatory EJREMY DICKINSON MD Facility:[id number] Start: 09-08-2023 End: 09-08-2023 Subsequent hospital visit by physician Jeremy Dickinson MD Work Phone: [facility] INTERVENTIONAL RADIOLOGY Comment on above: Chronic kidney disea se, unspecified CKD stage [N18.9] Start: 09-02-2023 End: 09-02-[address] NATE CROW MD Facility:[facility] Start: 09-02-2023 End: 09-02-[address] NATE CROW MD [facility] Start: 07-17-2023 Non-patient / Non-visit IRONING WORKER-C Denisse Sutton IRONING WORKER Work Phone: [facility] Start: 07-17-2023 End: 07-17-2023 ambulatory IRONING WORKER-C Denisse Sutton IRONING WORKER Work Phone: [facility] Work Phone: Start: 07-17-2023 End: 07-17-2023 Patient encounter procedure IRONING WORKER-C Denisse Sutton IRONING WORKER Work Phone: [facility]-Cardiovascular Services Work Phone: Start: 07-01-2023 End: 07-01-2023 Patient encounter procedure IRONING WORKER-Julian Sutton IRONING WORKER Work Phone: [facility] Work Phone: Start: 05-27-2023 End: 05-27-2023 Patient encounter procedure IRONING WORKER-C Denisse Sutton IRONING WORKER Work Phone: [facility] Work Phone: Start: 05-26-2023 End: 05-26-[address] NATE CROW MD Facility:[facility] Start: 05-26-2023 End: 05-26-[address] NATE CROW MD [facility] Start: 05-01-2023 End: 05-01-2023 Patient encounter procedure IRONING WORKER-C Denisse Sutton IRONING WORKER Work Phone: [facility]-Pre-Admission Testing Work Phone: Start: 04-29-2023 End: 05-03-2023 ambulatory DENISSE SUTTON FURNACE ROASTER-STITCHER HAND Facility:[facility] Start: 04-29-2023 End: 05-03-2023 Outreach Lab DENISSE SUTTON FURNACE ROASTER-STITCHER HAND [facility] Start: 04-27-2023 Non-patient / Non-visit IRONING WORKER-C Denisse Sutton IRONING WORKER Work Phone: [facility] Start: 04-27-2023 End: 04-27-2023 Admission to same day surgery center IRONING WORKER-C Denisse Sutton IRONING WORKER Work Phone: [facility]-Surgical Day Care Start: 04-27-2023 End: 04-27-2023 ambulatory IRONING WORKER-C Denisse Sutton IRONING WORKER Work Phone: [facility] Work Phone: Start: 04-24-2023 End: 04-24-2023 ambulatory IRONING WORKER-C Denisse Sutton IRONING WORKER Work Phone: [facility] Work Phone: Start: 04-24-2023 End: 04-24-2023 Patient encounter procedure IRONING WORKER-C Denisse Sutton IRONING WORKER Work Phone: [facility]-Laboratory Work Phone: Start: 04-15-2023 End: 04-15-2023 Patient encounter procedure IRONING WORKER-C Denisse Sutton IRONING WORKER Work Phone: [facility] Work Phone: Start: 02-24-2023 ambulatory DENISSE SUTTON F[employer]NACE ROASTER-STITCHER HAND Facility:[facility] Start: 02-11-2023 End: 02-11-2023 Patient encounter procedure IRONING WORKER-C Denisse Sutton IRONING WORKER Work Phone: [facility] Work Phone: Start: 01-22-2023 Non-patient / Non-visit IRONING WORKER-C Denisse Sutton IRONING WORKER Work Phone: [facility] Start: 01-22-2023 End: 01-22-2023 Admission to same day surgery center IRONING WORKER-C Denisse Sutton IRONING WORKER Work Phone: [facility]-Solution Manager/Special Procedures Work Phone: Start: 01-22-2023 End: 01-22-2023 ambulatory IRONING WORKER-C Denisse Sutton IRONING WORKER Work Phone: [facility] Work Phone: Start: 01-20-2023 End: 01-20-2023 ambulatory DENISSE SUTTON F[employer]NACE ROASTER-STITCHER HAND Facility:[facility] Start: 01-20-2023 End: 01-20-2023 Patient encounter procedure DENISSE SUTTON FURNACE ROASTER-STITCHER HAND [facility] Start: 12-17-2022 Non-patient / Non-visit IRONING WORKER-C Denisse Sutton IRONING WORKER Work Phone: [facility] Start: 12-17-2022 End: 12-17-2022 ambulatory IRONING WORKER-C Denisse Sutton IRONING WORKER Work Phone: [facility] Work Phone: Start: 12-17-2022 End: 12-17-2022 Patient encounter procedure IRONING WORKER-Julian Sutton IRONING WORKER Work Phone: [facility]-Cardiovascular Services Work Phone: Start: 12-10-2022 End: 12-10-2022 Patient encounter procedure IRONING WORKER-Julian Sutton IRONING WORKER Work Phone: [facility] Work Phone: Start: 11-18-2022 End: 11-18-2022 SAME DAY STAY LEE CASH MD [facility] Start: 11-10-2022 End: 11-10-2022 Emergency department patient visit CALDERON PHAN DO [facility] Start: 10-23-2022 End: 10-24-[address] TOÑITO COVINGTON MD [facility] Start: 08-28-2022 End: 08-29-2022 Emergency department patient visit DR FREDDIE BURRIS DO [facility] Start: 08-11-2022 End: 08-11-[address] NTAE CROW MD [facility] Start: 08-06-2022 End: 08-06-[address] NATE CROW MD [facility] Start: 07-23-2022 Non-patient / Non-visit IRONING WORKER-Julian Sutton IRONING WORKER Work Phone: [facility] Start: 07-22-2022 Non-patient / Non-visit IRONING WORKER-C Denisse Sutton IRONING WORKER Work Phone: [facility] Start: 07-22-2022 End: 07-23-2022 Evaluation and management of inpatient IRONING WORKER-C Denisse Sutton IRONING WORKER Work Phone: [facility]-Progressive Care Unit Start: 07-22-2022 End: 07-23-2022 observation encounter IRONING WORKER-C Denisse Sutton IRONING WORKER Work Phone: [facility] Work Phone: Start: 07-15-2022 Non-patient / Non-visit IRONING WORKER-C Denisse Sutton IRONING WORKER Work Phone: [facility] Start: 07-14-2022 Non-patient / Non-visit IRONING WORKER-C Denisse Sutton IRONING WORKER Work Phone: [facility] Start: 07-13-2022 Non-patient / Non-visit IRONING WORKER-C Denisse Sutton IRONING WORKER Work Phone: [facility] Start: 07-12-2022 Non-patient / Non-visit IRONING WORKER-C Denisse Sutton IRONING WORKER Work Phone: [facility] Start: 07-12-2022 End: 07-15-2022 Evaluation and management of inpatient [facility]-Medical Surgical 3 Start: 07-08-2022 End: 07-08-2022 Emergency department patient visit DORIAN JAUREGUI MD [facility] Start: 04-15-2022 End: 04-19-2022 Outreach Lab DENISSE SUTTON FURNACE ROASTER-STITCHER HAND [facility] Start: 02-25-2022 End: 02-25-2022 SAME DAY STAY JOSE OKEEFE DO [facility] Start: 01-22-2022 End: 01-22-2022 Patient encounter procedure DENISSE SUTTON FURNACE ROASTER-[employer]ITCHER HAND [facility] Start: 01-22-2022 End: 01-22-[address] NATE CROW MD [facility] Start: 01-10-2022 End: 01-10-[address] NATE CROW MD [facility] Start: 12-13-2021 End: 12-15-2021 Evaluation and management of inpatient RADHAMELLY HUMPHREYS MD [facility] Start: 12-13-2021 End: 12-13-2021 Emergency department patient visit EVELINA CURTIS MD [facility] Start: 12-11-2021 End: 12-15-2021 Outreach Lab MONICA CANDELARIO FURNACE ROASTER-STITCHER HAND [facility] Start: 12-11-2021 End: 12-11-2021 Patient encounter procedure MONICA CANDELARIO FURNACE ROASTER[employer]STITCHER HAND [facility] Start: 12-11-2021 End: 12-11-[address] NATE CROW MD [facility] Start: 11-22-2021 End: 11-22-2021 Patient encounter procedure DENISSE SUTTON [employer]NA[employer] RO[employer] [facility] Start: 11-04-2021 End: 11-04-2021 Emergency department patient visit DR DEAN SHAH MD [facility] Start: 10-10-2021 End: 10-10-2021 Patient encounter procedure DENISSE SUTTON [employer]NACE [employer] [facility] Start: 09-13-2021 End: 09-13-2021 Patient encounter procedure DENISSE SUTTON [employer]NACE RO[employer]ER[employer]ITCHER [employer] [facility] Start: 08-30-2021 Patient encounter procedure Macarena S Luis Work Phone: RT-Sjexgbhygs-Vwddgg Work Phone: Start: 07-31-2021 End: 07-31-2021 Patient encounter procedure DENISSE SUTTON [employer]NACE RO[employer]ER[employer]ER [employer] [facility] Start: 01-10-2021 End: 01-10-2021 Patient encounter procedure BOBBY MONTEJO MD [facility] Start: 01-08-2021 End: 01-08-2021 Patient encounter procedure BOBBY MONTEJO MD [facility] Start: 06-16-2018 End: 06-16-2018 Patient encounter procedure [facility] Patient encounter status Macarena S Luis Work Phone: TK-Alixroplsw-Ykbxnj Work Phone: Procedures Date Procedure Procedure Detail Performing Clinician Start: 09-08-2023 End: 09-08-2023 Rmvl tamika cvc w/o subq port/program management specialist Jeremy Dickinson MD Work Phone: Start: 04-27-2023 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 IRONING WORKER-C Denisse Sutton IRONING WORKER Work Phone: Start: 03-30-2023 Fistula (morphologic abnormality) DENISSE SUTTON [employer] Start: 07-22-2022 MRI of brain without contrast IRONING WORKER-C Denisse Sutton IRONING WORKER Work Phone: Start: 07-22-2022 Plain chest X-ray IRONING WORKER-C Denisse Sutton IRONING WORKER Work Phone: Start: 07-22-2022 CT of head without contrast IRONING WORKER-C Denisse Sutton IRONING WORKER Work Phone: Start: 07-12-2022 Plain chest X-ray Start: 07-12-2022 CT cervical spine wi thout contrast Start: 07-12-2022 CT of face Start: 07-12-2022 CT of head without contrast Start: 03-30-2022 Cholecystectomy DENISSE SUTTON [employer]NACE [employer] Start: 01-22-2022 Echocardiography JT ANDUJARFLOYD DO Start: 01-10-2022 Cardiovascular stres s testing JOSE OKEEFE DO Start: 05-27-2021 Cardiac catheterization DENISSE SUTTON [employer] Comment on above: Oriska Start: 04-19-2021 Cardiovascular stres s testing DENISSE STUTON FURNACE ROASTER[employer]STITCHER [employer] Comment on above: Oriska Start: 03-30-2021 Fistula (morphologic abnormality) DENISSE SUTTON [employer]NA[employer] Start: 01-21-2021 Echocardiography MICHELLESE Rosalinda SUTTON FURNACE ROASTER[employer]STITCHER [employer] Comment on above: Elaine Start: 08-21-2020 Doppler ultrasonogra phy of bilateral carotid arteries DENISSE SUTTON [employer] Start: 06-15-2018 Lipid 1996 panel - S [...] Work Phone: Investigation of tra nsfusion reaction IRONING WORKER-C Denisse Sutton IRONING WORKER Work Phone: Knee Surgery Macarena Smith Work Phone: Legionella pneumophi la antigen assay IRONING WORKER-C Denisse Sutton IRONING WORKER Work Phone: Other bilateral liga tion and division of fallopian tubes Macarena Smith Work Phone: Respiratory microbia l culture IRONING WORKER-C Denisse Sutton IRONING WORKER Work Phone: SARS-CoV-2 & FLU Ant igen (Rapid) Stent, device (physi heather object) BOBBY MONTEJO MD Comment on above: cardiac x 5 Streptococcus pneumo niae Antigen (M IRONING WORKER-Julian Sutton IRONING WORKER Work Phone: Plan of Treatment Date Care Activity Detail Author Start: 03-04-2027 Urine microalbumin profile DTaP,Tdap,Td Vaccine (3 - Td or Tdap) [facility] Start: 08-30-2024 Diabetes Screening Diabetes Screening [facility] Start: 11-29-2023 Influenza vaccination Influenza Vaccine (Season Ended) [facility] Start: 06-16-2023 Lipid panel Lipid Screening [facility] Start: 04-27-2023 Anesthesia vascular shunt/shunt revision ANESTH VASCULAR SHUNT SURG [facility] Start: 04-27-2023 Arven anast opn upr arm cephalic vein trpos AV FUSE UPPR ARM CEPHALIC [facility] Start: 04-27-2023 Patient discharge [facility] Start: 04-27-2023 Dialysis care [facility] Start: 03-30-2023 Behavioral Health Screening Behavioral Health Screening [facility] Start: 01-22-2023 Patient discharge [facility] Start: 11-28-2022 Covid-19 Vaccine ( season) Covid-19 Vaccine () [facility] Start: 07-23-2022 Patient discharge [facility] Start: 07-22-2022 Consultation [facility] Start: 07-22-2022 Ambulation without limitation [facility] Start: 07-22-2022 Assessment of risk of venous thromboembolism [facility] Start: 07-22-2022 Care regimes management [facility] Start: 07-22-2022 Catheterization of vein [facility] Start: 07-22-2022 Insertion of catheter into peripheral vein [facility] Start: 07-22-2022 Measuring intake and output [facility] Start: 07-22-2022 Providing care according to standard [facility] Start: 07-22-2022 End: 07-22-2022 [facility] Start: 07-22-2022 Admission procedure [facility] Start: 07-22-2022 Following clinical pathway protocol [facility] Start: 07-22-2022 Patient referral to dietitian [facility] Start: 07-15-2022 Patient discharge [facility] Start: 07-14-2022 [facility] Start: 07-13-2022 Referral to shop steward [facility] Start: 07-12-2022 Following clinical pathway protocol [facility] Start: 07-12-2022 Assessment of risk of venous thromboembolism [facility] Start: 07-12-2022 Bacteria identified in Sputum by Culture [facility] Start: 07-12-2022 Care regimes management [facility] Start: 07-12-2022 Catheterization of vein [facility] Start: 07-12-2022 Inhalation therapy procedure [facility] Start: 07-12-2022 Insertion of catheter into peripheral vein [facility] Start: 07-12-2022 Oxygen therapy [facility] Start: 07-12-2022 Providing care according to standard [facility] Start: 07-12-2022 Provision of activity privileges [facility] Start: 07-12-2022 Referral to occupational therapist [facility] Start: 07-12-2022 Referral to service [facility] Start: 07-12-2022 Respiratory therapy [facility] Start: 07-12-2022 [facility] Start: 07-12-2022 Legionella pneumophila Ag [Presence] in Urine [facility] Start: 07-12-2022 Streptococcus pneumoniae antigen assay [facility] Start: 07-12-2022 Verification routine [facility] Start: 07-12-2022 Admission procedure [facility] Start: 01-26-2019 Screening for malignant neoplasm of breast Mammogram Screening [facility] Start: 12-23-2015 Shingrix Vaccine (1 of 2) Shingrix Vaccine (1 of 2) [facility] Start: 2010 Screening for malignant neoplasm of colon [facility] Start: 1986 Screening for malignant neoplasm of cervix Cervical Cancer Screening [facility] Start: 1984 Hepatitis B Vaccine (1 of 3 - 19+ 3-dose series) Hepatitis B Vaccine (1 of 3 - 19+ 3-dose series) [facility] Start: 12-23-1983 HIV screening HIV Screening [facility] Bilirubin measuremen t, urine [facility] Hematocrit [Volume Fraction] of Blood [facility] Hemoglobin [Mass/vol ume] in Blood [facility] Hemoglobin [Presence ] in Urine [facility] Leukocytes [#/volume ] in Blood [facility] Mean corpuscular hem oglobin concentration determination [facility] Mean corpuscular hem oglobin determination [facility] Measurement of k[place] es in urine using dipstick [facility] Microscopic urinalysis [place] Neutrophil count [facility] Neutrophil percent differential count [facility] Patient referral [facility] Work Phone: pH of Urine [facility] Platelets [#/volume] in Blood [facility] Red blood cell count [facility] Red cell distributio n width determination [facility] Specific gravity of Urine [facility] Urinalysis, blood, qualitative [facility] Urine dipstick for glucose W [facility] Urine dipstick for leukocyte esterase [facility] Urine dipstick for nitrite W [facility] Urine dipstick for protein W [facility] Urine examination [facility] Urine microscopy: epithelial cells [facility] Urine Microscopy: wh ite cells [facility] Urobilinogen [Presen ce] in Urine [facility] Immunizations Immunization Date Immunization Notes Care Provider Fa cility 04-11-2021 COVID-19, mRNA, LNP- S, PF, 30 mcg/0.3 mL dose; Translations: [Pfizer-BioNTech COVID-19 Vaccine] DENISSE SUTTON FURNACE 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-[employer] [facility] 03-21-2021 COVID-19, mRNA, LNP- S, PF, 30 mcg/0.3 mL dose; Translations: [Pfizer-BioNTech COVID-19 Vaccine] DENISSE SUTTON [employer]NACE [employer] [facility] 04-22-2017 pneumococcal polysaccharide vaccine, 23 valent DENISSE SUTTON FURNACE ROASTER[employer] [facility] 03-04-2017 tetanus toxoid, redu benito diphtheria toxoid, and acellular pertussis vaccine, adsorbed DENISSE SUTTON FURNACE [employer] [facility] Payers Date Payer Category Payer Unknown 2023 Self-pay [id number] 2023 Unknown [id number] 2021 Medicaid [id number] 2021 Medicaid [id number] 2021 Unknown [id number] 2020 Unknown [id number] 2020 Medicare [id number] 2020 Private Health Insurance [id number] 1965 Unknown [id number] 2.16.840.1.714060.3.579.2.62 1965 Unknown [id number] 2.16.840.1.787967.3.579.2. 1965 Unknown [id number] 2.16.840.1.511186.3.579.2. 1965 Unknown [id number] 2.16.840.1.087600.3.579.2. 1965 Unknown [id number] 2.16.840.1.803740.3.579.2. 1965 Unknown [id number] 2.16.840.1.187580.3.579.2. 1965 Unknown [id number] 2.16.840.1.118995.3.579.2. 1965 Unknown [id number] 2.16.840.1.716570.3.579.2. 1965 Unknown [id number] 2.16.840.1.600290.3.579.2. 1965 Unknown [id number] 2.16.840.1.096803.3.579.2. 1965 Unknown [id number] 2.16.840.1.690965.3.579.2.62 1965 Unknown [id number] 2.16.840.1.476237.3.579.2.627 1965 Unknown [id number] 2.16840.1.449209.3.579.2.627 1965 Unknown [id number] 2.16840.1.032990.3.579.2.627 1965 Unknown [id number] 2.16840.1.088800.3.579.2.62 1965 Unknown [id number] 2.16840.1.261997.3.579.2.62 1965 Unknown [id number] 2.840.1.412564.3.579.2.62 1965 Unknown [id number] 2.840.1.031553.3.579.2.627 Medicare MEDICARE PART A B [id number] Unknown [id number] Unknown [id number] 2.16840.1.859882.3.579.2.462 Unknown [id number] 2.16840.1.517770.3.579.2.462 Unknown [id number] 2.16840.1.399606.3.579.2.462 Unknown [id number] 2.16840.1.823872.3.579.2.462 Unknown [id number] 2.16840.1.891351.3.579.2.462 Unknown [id number] 2.16840.1.810742.3.579.2.462 Unknown [id number] 2.16840.1.418162.3.579.2.462 Unknown [id number] 2.16840.1.848030.3.579.2.462 Unknown [id number] 2.16840.1.000576.3.579.2.462 Unknown [id number] 2.16.840.1.959807.3.579.2.462 Unknown [id number] 2.16.840.1.033535.3.579.2.462 Unknown [id number] 2.16.840.1.512157.3.579.2.462 Unknown [id number] 2.16.840.1.047562.3.579.2.462 Unknown [id number] 2.16.840.1.842342.3.579.2.462 Unknown [id number] 2.16.840.1.365846.3.579.2.462 Unknown [id number] 2.16.840.1.091756.3.579.2.462 Unknown [id number] 2.16.840.1.431412.3.579.2.462 Unknown [id number] 2.16.840.1.378436.3.579.2.462 Unknown [id number] 2.16.840.1.167843.3.579.2.462 Unknown [id number] 2.16.840.1.607363.3.579.2.462 Unknown [id number] 2.16.840.1.534797.3.579.2.462 Social History Date Type Detail Facility Start: 08-09-2020 Never smoked t obacco (finding) [facility] Start: 1965 Sex Assigned At Female A [facility] Start: 03-05-2012 End: 09-08-2023 Never smoker Never smoker [facility] Work Phone: Start: 10-29-2021 End: 08-16-2024 Tobacco smoking status Ex-smoker (finding) [facility] Comment on above: quit 30 years ago Start: 07-12-2022 End: 04-23-2023 Tobacco smoking status NHIS Unknown if ever smoked [facility] Start: 11-27-2019 None [facility] Start: 11-27-2019 With Family [facility] Start: 05-04-2019 Non-smoker [facility] History of tobacco use Current smoker [facility] History of tobacco use Cigarette Smoker C [facility] Start: 03-05-2012 Tobacco use and exposure Former smokeless tobacco user [facility] End: 12-04-1998 History of tobacco use User of smokeless tobacco [facility] Start: 07-09-2012 Alcohol intake Not Asked [facility] Start: 09-08-2023 Area Deprivation Index [facility] National Score (1-100), lower number is lower risk 67 [facility] Start: 1965 Sex Assigned At Not on file C [facility] Sexual Orientation [facility] Start: 06-02-2019 Sex Female (finding) [facility] NEGATED: Highlighted row Denies Alcohol Denies Alcohol [facility]vap[facility] Work Phone: NEGATED: Highlighted row [facility] Medical Equipment Procedure Code Equipment Code [...] Creation, AV fistula Ligation cl ip, metallic [id number] FDA Start: 04-27-2023 Creation, AV fistula Ligation cl ip, metallic [id number] FDA Start: 04-27-2023 Creation, AV fistula Ligation cl ip, metallic ()[id number] FDA Start: 04-27-[address] Strips Start: 05-23-2020 Lancets Start: 05-23-2020 See Instructions , 1 bottle of 100 ---Test 4times/day--Pt has accucheck guide dx E11.9 Pt insulin dependent., # 1 EA, 11 Refill(s), Pharmacy: [facility], 160, cm, 05/10/20 8:54:00 EST, Height, 98.6, kg, 05/10/20 8:54:00 EST, Dosing Weight Start: 05-23-2020 See Instructions , qs 1 month supply--test four times daily--has accucheck guide dx E11.9, insulin dependent, # 1 EA, 11 Refill(s), Pharmacy: [facility], 160, cm, 05/10/20 8:54:00 EST, Height, 98.6, kg, 05/10/20 8:54:00 EST, Dosing Weight Start: 05-23-2020 See Instructions , 1 bottle of 100 ---Test 4times/day--Pt has accucheck guide dx E11.9 Pt insulin dependent., # 1 EA, 11 Refill(s), Pharmacy: [facility], 160, cm, 05/10/20 8:54:00 EST, Height, 98.6, kg, 05/10/20 8:54:00 EST, Dosing Weight Start: 05-23-2020 See Instructions , qs 1 month supply--test four times daily--has accucheck guide dx E11.9, insulin dependent, # 1 EA, 11 Refill(s), Pharmacy: [facility], 160, cm, 05/10/20 8:54:00 EST, Height, 98.6, kg, 05/10/20 8:54:00 EST, Dosing Weight Start: 02-24-[address] Strips Start: 05-23-2020 Lancets Start: 05-23-2020 See Instructions , 1 bottle of 100 ---Test 4times/day--Pt has accucheck guide dx E11.9 Pt insulin dependent., # 1 EA, 11 Refill(s), Pharmacy: [facility], 160, cm, 05/10/20 8:54:00 EST, Height, 98.6, kg, 05/10/20 8:54:00 EST, Dosing Weight Start: 05-23-2020 See Instructions , qs 1 month supply--test four times daily--has accucheck guide dx E11.9, insulin dependent, # 1 EA, 11 Refill(s), Pharmacy: [facility], 160, cm, 05/10/20 8:54:00 EST, Height, 98.6, kg, 05/10/20 8:54:00 EST, Dosing Weight Start: 05-23-2020 See Instructions , 1 bottle of 100 ---Test 4times/day--Pt has accucheck guide dx E11.9 Pt insulin dependent., # 1 EA, 11 Refill(s), Pharmacy: [facility], 160, cm, 05/10/20 8:54:00 EST, Height, 98.6, kg, 05/10/20 8:54:00 EST, Dosing Weight Start: 05-23-2020 See Instructions , qs 1 month supply--test four times daily--has accucheck guide dx E11.9, insulin dependent, # 1 EA, 11 Refill(s), Pharmacy: [facility], 160, cm, 05/10/20 8:54:00 EST, Height, 98.6, kg, 05/10/20 8:54:00 EST, Dosing Weight Start: 05-23-2020 See Instructions , 1 bottle of 100 ---Test 4times/day--Pt has accucheck guide dx E11.9 Pt insulin dependent., # 1 EA, 11 Refill(s), Pharmacy: [facility], 160, cm, 05/10/20 8:54:00 EST, Height, 98.6, kg, 05/10/20 8:54:00 EST, Dosing Weight Start: 05-23-2020 See Instructions , qs 1 month supply--test four times daily--has accucheck guide dx E11.9, insulin dependent, # 1 EA, 11 Refill(s), Pharmacy: [facility], 160, cm, 05/10/20 8:54:00 EST, Height, 98.6, kg, 05/10/20 8:54:00 EST, Dosing Weight Start: 05-23-2020 See Instructions , 1 bottle of 100 ---Test 4times/day--Pt has accucheck guide dx E11.9 Pt insulin dependent., # 1 EA, 11 Refill(s), Pharmacy: [facility], 160, cm, 05/10/20 8:54:00 EST, Height, 98.6, kg, 05/10/20 8:54:00 EST, Dosing Weight Start: 05-23-2020 See Instructions , qs 1 month supply--test four times daily--has accucheck guide dx E11.9, insulin dependent, # 1 EA, 11 Refill(s), Pharmacy: [facility], 160, cm, 05/10/20 8:54:00 EST, Height, 98.6, kg, 05/10/20 8:54:00 EST, Dosing Weight Start: 05-23-2020 See Instructions , 1 bottle of 100 ---Test 4times/day--Pt has accucheck guide dx E11.9 Pt insulin dependent., # 1 EA, 11 Refill(s), Pharmacy: [facility], 160, cm, 05/10/20 8:54:00 EST, Height, 98.6, kg, 05/10/20 8:54:00 EST, Dosing Weight Start: 05-23-2020 See Instructions , qs 1 month supply--test four times daily--has accucheck guide dx E11.9, insulin dependent, # 1 EA, 11 Refill(s), Pharmacy: [facility], 160, cm, 05/10/20 8:54:00 EST, Height, 98.6, kg, 05/10/20 8:54:00 EST, Dosing Weight Start: 05-23-2020 See Instructions , 1 bottle of 100 ---Test 4times/day--Pt has accucheck guide dx E11.9 Pt insulin dependent., # 1 EA, 11 Refill(s), Pharmacy: [facility], 160, cm, 05/10/20 8:54:00 EST, Height, 98.6, kg, 05/10/20 8:54:00 EST, Dosing Weight Start: 05-23-2020 See Instructions , qs 1 month supply--test four times daily--has accucheck guide dx E11.9, insulin dependent, # 1 EA, 11 Refill(s), Pharmacy: [facility], 160, cm, 05/10/20 8:54:00 EST, Height, 98.6, kg, 05/10/20 8:54:00 EST, Dosing Weight Start: 05-23-2020 See Instructions , 1 bottle of 100 ---Test 4times/day--Pt has accucheck guide dx E11.9 Pt insulin dependent., # 1 EA, 11 Refill(s), Pharmacy: [facility], 160, cm, 05/10/20 8:54:00 EST, Height, 98.6, kg, 05/10/20 8:54:00 EST, Dosing Weight Start: 05-23-2020 See Instructions , qs 1 month supply--test four times daily--has accucheck guide dx E11.9, insulin dependent, # 1 EA, 11 Refill(s), Pharmacy: [place] [id number], 160, cm, 05/10/20 8:54:00 EST, Height, 98.6, kg, 05/10/20 8:54:00 EST, Dosing Weight Start: 05-23-2020 See Instructions , 1 bottle of 100 ---Test 4times/day--Pt has accucheck guide dx E11.9 Pt insulin dependent., # 1 EA, 11 Refill(s), Pharmacy: [facility], 160, cm, 05/10/20 8:54:00 EST, Height, 98.6, kg, 05/10/20 8:54:00 EST, Dosing Weight Start: 05-23-2020 See Instructions , qs 1 month supply--test four times daily--has accucheck guide dx E11.9, insulin dependent, # 1 EA, 11 Refill(s), Pharmacy: [facility], 160, cm, 05/10/20 8:54:00 EST, Height, 98.6, kg, 05/10/20 8:54:00 EST, Dosing Weight Start: 05-23-2020 See Instructions , 1 bottle of 100 ---Test 4times/day--Pt has accucheck guide dx E11.9 Pt insulin dependent., # 1 EA, 11 Refill(s), Pharmacy: [facility], 160, cm, 05/10/20 8:54:00 EST, Height, 98.6, kg, 05/10/20 8:54:00 EST, Dosing Weight Start: 05-23-2020 See Instructions , qs 1 month supply--test four times daily--has accucheck guide dx E11.9, insulin dependent, # 1 EA, 11 Refill(s), Pharmacy: [facility], 160, cm, 05/10/20 8:54:00 EST, Height, 98.6, kg, 05/10/20 8:54:00 EST, Dosing Weight Start: 05-23-2020 See Instructions , 1 bottle of 100 ---Test 4times/day--Pt has accucheck guide dx E11.9 Pt insulin dependent., # 1 EA, 11 Refill(s), Pharmacy: [facility], 160, cm, 05/10/20 8:54:00 EST, Height, 98.6, kg, 05/10/20 8:54:00 EST, Dosing Weight Start: 05-23-2020 See Instructions , qs 1 month supply--test four times daily--has accucheck guide dx E11.9, insulin dependent, # 1 EA, 11 Refill(s), Pharmacy: [facility], 160, cm, 05/10/20 8:54:00 EST, Height, 98.6, kg, 05/10/20 8:54:00 EST, Dosing Weight Start: 05-23-2020 See Instructions , 1 bottle of 100 ---Test 4times/day--Pt has accucheck guide dx E11.9 Pt insulin dependent., # 1 EA, 11 Refill(s), Pharmacy: [facility], 160, cm, 05/10/20 8:54:00 EST, Height, 98.6, kg, 05/10/20 8:54:00 EST, Dosing Weight Start: 05-23-2020 See Instructions , qs 1 month supply--test four times daily--has accucheck guide dx E11.9, insulin dependent, # 1 EA, 11 Refill(s), Pharmacy: [facility], 160, cm, 05/10/20 8:54:00 EST, Height, 98.6, kg, 05/10/20 8:54:00 EST, Dosing Weight Start: 05-23-2020 See Instructions , 1 bottle of 100 ---Test 4times/day--Pt has accucheck guide dx E11.9 Pt insulin dependent., # 1 EA, 11 Refill(s), Pharmacy: [place] [id number], 159, cm, 01/21/22 15:18:00 EDT, Height, 97.1, kg, 01/21/22 15:18:00 EDT, D... Start: 01-31-2022 See Instructions , qs 1 month supply--One touch delica plus, # 1 EA, 11 Refill(s), Pharmacy: [facility] [id number], 159, cm, 01/21/22 15:18:00 EDT, Height, 97.1 Start: 02-03-2022 See Instructions , qs 1 month supply--test four times daily--has accucheck guide dx E11.9, insulin dependent, # 1 EA, 11 Refill(s), Pharmacy: [facility] 2914, 160, cm, 05/10/20 8:54:00 EST, Height, 98.6, kg, 05/10/20 8:54:00 EST, Dosing Weight Start: 05-23-2020 See Instructions , qs 1 month supply, # 1 EA, 11 Refill(s), Pharmacy: [facility] [id number], 159, cm, 01/21/22 15:18:00 EDT, Height, 97.1 Start: 02-03-2022 See Instructions , 1 bottle of 100 ---Test 4times/day--Pt has accucheck guide dx E11.9 Pt insulin dependent., # 1 EA, 11 Refill(s), Pharmacy: [facility] [id number], 159, cm, 01/21/22 15:18:00 EDT, Height, 97.1, kg, 01/21/22 15:18:00 EDT, D... Start: 01-31-2022 See Instructions , qs 1 month supply--One touch delica plus, # 1 EA, 11 Refill(s), Pharmacy: [facility] [id number], 159, cm, 01/21/22 15:18:00 EDT, Height, 97.1 Start: 02-03-2022 See Instructions , qs 1 month supply--test four times daily--has accucheck guide dx E11.9, insulin dependent, # 1 EA, 11 Refill(s), Pharmacy: [facility] 2914, 160, cm, 05/10/20 8:54:00 EST, Height, 98.6, kg, 05/10/20 8:54:00 EST, Dosing Weight Start: 05-23-2020 See Instructions , qs 1 month supply, # 1 EA, 11 Refill(s), Pharmacy: [facility] [address], 159, cm, 01/21/22 15:18:00 EDT, Height, 97.1 Start: 02-03-2022 See Instructions , 1 bottle of 100 ---Test 4times/day--Pt has accucheck guide dx E11.9 Pt insulin dependent., # 1 EA, 11 Refill(s), Pharmacy: [facility] [address]80, 159, cm, 01/21/22 15:18:00 EDT, Height, 97.1, kg, 01/21/22 15:18:00 EDT, D... Start: 01-31-2022 See Instructions , qs 1 month supply--One touch delica plus, # 1 EA, 11 Refill(s), Pharmacy: [facility] [address]56, 159, cm, 01/21/22 15:18:00 EDT, Height, 97.1 Start: 02-03-2022 See Instructions , qs 1 month supply--test four times daily--has accucheck guide dx E11.9, insulin dependent, # 1 EA, 11 Refill(s), Pharmacy: [facility] 2914, 160, cm, 05/10/20 8:54:00 EST, Height, 98.6, kg, 05/10/20 8:54:00 EST, Dosing Weight Start: 05-23-2020 See Instructions , qs 1 month supply, # 1 EA, 11 Refill(s), Pharmacy: [facility] [id number], 159, cm, 01/21/22 15:18:00 EDT, Height, 97.1 Start: 02-03-2022 See Instructions , BD UF 8mm 31 G (short) qs 1 month supply. In absence of PCP, # 1 EA, 0 Refill(s), Pharmacy: [place] [address], 160, cm, 05/28/22 14:54:00 EST, Height, 98.7 Start: 07-02-2022 See Instructions , 1 bottle of 100 ---Test 4times/day--Pt has accucheck guide dx E11.9 Pt insulin dependent., # 1 EA, 11 Refill(s), Pharmacy: [facility] [id number], 159, cm, 01/21/22 15:18:00 EDT, Height, 97.1, kg, 01/21/22 15:18:00 EDT, D... Start: 01-31-2022 See Instructions , qs 1 month supply--One touch delica plus, # 1 EA, 11 Refill(s), Pharmacy: [facility] [address]0775, 159, cm, 01/21/22 15:18:00 EDT, Height, 97.1 Start: 02-03-2022 See Instructions , qs 1 month supply--test four times daily--has accucheck guide dx E11.9, insulin dependent, # 1 EA, 11 Refill(s), Pharmacy: [facility] 2914, 160, cm, 05/10/20 8:54:00 EST, Height, 98.6, kg, 05/10/20 8:54:00 EST, Dosing Weight Start: 05-23-2020 See Instructions , qs 1 month supply, # 1 EA, 11 Refill(s), Pharmacy: [place] [id number], 159, cm, 01/21/22 15:18:00 EDT, Height, 97.1 Start: 02-03-2022 See Instructions , BD UF 8mm 31 G (short) qs 1 month supply. In absence of PCP, # 1 EA, 0 Refill(s), Pharmacy: [facility] [id number], 160, cm, 05/28/22 14:54:00 EST, Height, 98.7 Start: 07-02-2022 See Instructions , 1 bottle of 100 ---Test 4times/day--Pt has accucheck guide dx E11.9 Pt insulin dependent., # 1 EA, 11 Refill(s), Pharmacy: [place] [id number], 159, cm, 01/21/22 15:18:00 EDT, Height, 97.1, kg, 01/21/22 15:18:00 EDT, D... Start: 01-31-2022 See Instructions , qs 1 month supply--One touch delica plus, # 1 EA, 11 Refill(s), Pharmacy: [facility] [id number], 159, cm, 01/21/22 15:18:00 EDT, Height, 97.1 Start: 02-03-2022 See Instructions , qs 1 month supply--test four times daily--has accucheck guide dx E11.9, insulin dependent, # 1 EA, 11 Refill(s), Pharmacy: [facility] 2914, 160, cm, 05/10/20 8:54:00 EST, Height, 98.6, kg, 05/10/20 8:54:00 EST, Dosing Weight Start: 05-23-2020 See Instructions , qs 1 month supply, # 1 EA, 11 Refill(s), Pharmacy: [facility] [address], 159, cm, 01/21/22 15:18:00 EDT, Height, 97.1 Start: 02-03-2022 See Instructions , BD UF 8mm 31 G (short) qs 1 month supply. In absence of PCP, # 1 EA, 0 Refill(s), Pharmacy: [facility] 38547, 160, cm, 05/28/22 14:54:00 EST, Height, 98.7 Start: 07-02-2022 See Instructions , 1 bottle of 100 ---Test 4times/day--Pt has accucheck guide dx E11.9 Pt insulin dependent., # 1 EA, 11 Refill(s), Pharmacy: [facility] 47477, 159, cm, 01/21/22 15:18:00 EDT, Height, 97.1, kg, 01/21/22 15:18:00 EDT, D... Start: 01-31-2022 See Instructions , qs 1 month supply--One touch delica plus, # 1 EA, 11 Refill(s), Pharmacy: [facility] 84729, 159, cm, 01/21/22 15:18:00 EDT, Height, 97.1 Start: 02-03-2022 See Instructions , qs 1 month supply--test four times daily--has accucheck guide dx E11.9, insulin dependent, # 1 EA, 11 Refill(s), Pharmacy: [facility] 2914, 160, cm, 05/10/20 8:54:00 EST, Height, 98.6, kg, 05/10/20 8:54:00 EST, Dosing Weight Start: 05-23-2020 See Instructions , qs 1 month supply, # 1 EA, 11 Refill(s), [facility]acy: [facility] [address], 159, cm, 01/21/22 15:18:00 EDT, Height, 97.1 Start: 02-03-2022 See Instructions , BD UF 8mm 31 G (short) qs 1 month supply. In absence of PCP, # 1 EA, 0 Refill(s), Pharmacy: [facility] [place] [facility] [id number], 160, cm, 05/28/22 14:54:00 EST, Height, 98.7 Start: 07-02-2022 See Instructions , 1 bottle of 100. Onetouch Verio. Testing QID. dx: E10.9 Sent in absence of PCP, # 1 EA, 0 Refill(s), [facility], 157.5, cm, 10/28/22 14:52:00 EDT, Height, 99.9, kg, 10/28/22 14:52:00 EDT, Dosing Weight Start: 11-07-2022 See Instructions , 1 bottle of 100. Onetouch Verio. Testing QID. dx: E10.9 Sent in absence of PCP, # 1 EA, 0 Refill(s), Pharmacy: [place] [address], 157.5, cm, 10/28/22 14:52:00 EDT, Height, 99.9, kg, 10/28/22 14:52:00 EDT, Dosing Weight Start: 11-07-2022 See Instructions , 1 bottle of 100. Onetouch Verio. Testing QID. dx: E10.9, # 1 EA, 3 Refill(s), Pharmacy: [place] [address], 154.9, cm, 11/18/22 8:18:00 EDT, Height, 101, kg, 11/18/22 8:18:00 EDT, Dosing Weight Start: 12-09-2022 See Instructions , qs 1 month supply. one touch lancets., # 1 EA, 3 Refill(s), Pharmacy: [place] [address], 154.9, cm, 11/18/22 8:18:00 EDT, Height, 101, kg, 11/18/22 8:18:00 EDT, Dosing Weight Start: 12-09-2022 ONETOUCH DELICA PLUS LANCETS EXTRA FINE 33G MISC, 0 Refill(s), 101 Start: 12-05-2022 See Instructions , qs for 1 month supply. Sent in absence of PCP. 31 G x 8 mm 08/12 use as diected, # 1 EA, 0 Refill(s), Pharmacy: [place] [address], 154.9, cm, 11/18/22 8:18:00 EDT, Height, 101, kg, 11/18/22 8:18:00 EDT, Dosing Weight Start: 12-18-2022 See Instructions , 1 bottle of 100. Onetouch Verio. Testing QID. dx: E10.9, # 100 EA, 0 Refill(s), Pharmacy: [place] [address], 62, cm, 03/10/23 16:45:00 EST, Height, 103.4, kg, 03/10/23 16:37:00 EST, Dosing Weight Start: 04-16-2023 See Instructions , qs 1 month supply. one touch lancets., # 100 EA, 0 Refill(s), Pharmacy: [place] [address], 62, cm, 03/10/23 16:45:00 EST, Height, 103.4, kg, 03/10/23 16:37:00 EST, Dosing Weight Start: 04-16-2023 ONETOUCH DELICA PLUS LANCETS EXTRA FINE 33G MISC, 0 Refill(s), 101 Start: 12-05-2022 See Instructions , qs for 1 month supply. Sent in absence of PCP. 31 G x 8 mm 5/16 use as diected, # 1 EA, 0 Refill(s), Pharmacy: [place] [address], 154.9, cm, 11/18/22 8:18:00 EDT, Height, 101, kg, 11/18/22 8:18:00 EDT, Dosing Weight Start: 12-18-2022 See Instructions , 1 bottle of 100. Onetouch Verio. Testing QID. dx: E10.9, # 100 EA, 11 Refill(s), Pharmacy: [place] [address], 157.5, cm, 04/29/23 14:30:00 EST, Height, 104.8, kg, 04/29/23 14:30:00 EST, Dosing Weight Start: 05-11-2023 See Instructions , qs 1 month supply. one touch lancets. Pt tests 4 times a day, # 100 EA, 11 Refill(s), Pharmacy: [place] [address], 157.5, cm, 04/29/23 14:30:00 EST, Height, 104.8, kg, 04/29/23 14:30:00 EST, Dosing Weight Start: 05-11-2023 ONETOUCH DELICA PLUS LANCETS EXTRA FINE 33G MISC, 0 Refill(s), 101 Start: 12-05-2022 See Instructions , qs for 1 month supply. Sent in absence of PCP. 31 G x 8 mm 5/16 use as diected, # 1 EA, 0 Refill(s), Pharmacy: [place] [address], 154.9, cm, 11/18/22 8:18:00 EDT, Height, 101, kg, 11/18/22 8:18:00 EDT, Dosing Weight Start: 12-18-2022 See Instructions , 1 bottle of 100. Onetouch Verio. Testing QID. dx: E10.9, # 100 EA, 11 Refill(s), Pharmacy: [place] [address], 157.5, cm, 04/29/23 14:30:00 EST, Height, 104.8, kg, 04/29/23 14:30:00 EST, Dosing Weight Start: 05-11-2023 See Instructions , qs 1 month supply. one touch lancets. Pt tests 4 times a day, # 100 EA, 11 Refill(s), Pharmacy: [place] [address], 157.5, cm, 04/29/23 14:30:00 EST, Height, 104.8, kg, 04/29/23 14:30:00 EST, Dosing Weight Start: 05-11-2023 ONETOUCH DELICA PLUS LANCETS EXTRA FINE 33G MISC, 0 Refill(s), 101 Start: 12-05-2022 See Instructions , qs for 1 month supply. Sent in absence of PCP. 31 G x 8 mm 08/12 use as diected, # 1 EA, 0 Refill(s), Pharmacy: [place] [address], 154.9, cm, 11/18/22 8:18:00 EDT, Height, 101, kg, 11/18/22 8:18:00 EDT, Dosing Weight Start: 12-18-2022 FREESTYLE LANCET S lancets [id number] Start: 12-24-2011 FREESTYLE LITE STRIPS test strip [id number] Start: 12-24-2011 See Instructions , 1 bottle of 100. Onetouch Verio. Testing QID. dx: E10.9, # 100 EA, 11 Refill(s), Pharmacy: [place] [address], 159, cm, 06/03/23 13:51:00 EST, Height, 14.54, kg, 06/08/23 16:20:00 EDT, Dosing Weight Start: 09-29-2023 See Instructions , qs 1 month supply. one touch lancets. Pt tests 4 times a day, # 100 EA, 11 Refill(s), Pharmacy: [place] [address], 159, cm, 06/03/23 13:51:00 EST, Height, 14.54, kg, 06/08/23 16:20:00 EDT, Dosing Weight Start: 09-29-2023 ONETOUCH DELICA PLUS LANCETS EXTRA FINE 33G MISC, 0 Refill(s), 101 Start: 12-05-2022 See Instructions , qs for 1 month supply. Sent in absence of PCP. 31 G x 8 mm 5/16 use as diected, # 1 EA, 0 Refill(s), Pharmacy: [place] [address], 154.9, cm, 11/18/22 8:18:00 EDT, Height, 101, kg, 11/18/22 8:18:00 EDT, Dosing Weight Start: 12-18-2022 See Instructions , 1 bottle of 100. Onetouch Verio. Testing QID. dx: E10.9, # 100 EA, 11 Refill(s), Pharmacy: [place] [address], 159, cm, 06/03/23 13:51:00 EST, Height, 14.54, kg, 06/08/23 16:20:00 EDT, Dosing Weight Start: 09-29-2023 See Instructions , qs 1 month supply. one touch lancets. Pt tests 4 times a day, # 100 EA, 11 Refill(s), Pharmacy: [place] [address], 159, cm, 06/03/23 13:51:00 EST, Height, 14.54, kg, 06/08/23 16:20:00 EDT, Dosing Weight Start: 09-29-2023 ONETOUCH DELICA PLUS LANCETS EXTRA FINE 33G MISC, 0 Refill(s), 101 Start: 12-05-2022 See Instructions , qs for 1 month supply. Sent in absence of PCP. 31 G x 8 mm 5/16 use as diected, # 1 EA, 0 Refill(s), Pharmacy: [place] [address], 154.9, cm, 11/18/22 8:18:00 EDT, Height, 101, kg, 11/18/22 8:18:00 EDT, Dosing Weight Start: 12-18-2022 See Instructions , 1 bottle of 100. Onetouch Verio. Testing QID. dx: E10.9, # 100 EA, 11 Refill(s), Pharmacy: [place] [address], 159, cm, 06/03/23 13:51:00 EST, Height, 14.54, kg, 06/08/23 16:20:00 EDT, Dosing Weight Start: 09-29-2023 See Instructions , qs 1 month supply. one touch lancets. Pt tests 4 times a day, # 100 EA, 11 Refill(s), Pharmacy: [place] [address], 159, cm, 06/03/23 13:51:00 EST, Height, 14.54, kg, 06/08/23 16:20:00 EDT, Dosing Weight Start: 09-29-2023 ONETOUCH DELICA PLUS LANCETS EXTRA FINE 33G MISC, 0 Refill(s), 101 Start: 12-05-2022 See Instructions , qs for 1 month supply. Sent in absence of PCP. 31 G x 8 mm 08/12 use as diected, # 1 EA, 0 Refill(s), Pharmacy: [place] [address], 154.9, cm, 11/18/22 8:18:00 EDT, Height, 101, kg, 11/18/22 8:18:00 EDT, Dosing Weight Start: 12-18-2022 See Instructions , 1 bottle of 100. Onetouch Verio. Testing QID. dx: E10.9, # 100 EA, 11 Refill(s), Pharmacy: [place] [address], 159, cm, 06/03/23 13:51:00 EST, Height, 14.54, kg, 06/08/23 16:20:00 EDT, Dosing Weight Start: 09-29-2023 See Instructions , qs 1 month supply. one touch lancets. Pt tests 4 times a day, # 100 EA, 11 Refill(s), Pharmacy: [place] [id number], 159, cm, 06/03/23 13:51:00 EST, Height, 14.54, kg, 06/08/23 16:20:00 EDT, Dosing Weight Start: 09-29-2023 ONETOUCH DELICA PLUS LANCETS EXTRA FINE 33G MISC, 0 Refill(s), 101 Start: 12-05-2022 See Instructions , qs for 1 month supply. 31 G x 8 mm 5/16 use as diecte, # 1 EA, 11 Refill(s), Pharmacy: [place] [address], 158, cm, 12/21/23 12:59:00 EDT, Height, 105.7, kg, 12/21/23 12:59:00 EDT, Dosing Weight Start: 01-04-2024 See Instructions , 1 bottle of 100. Onetouch Verio. Testing QID. dx: E10.9, # 100 EA, 11 Refill(s), Pharmacy: [place] [address], 159, cm, 06/03/23 13:51:00 EST, Height, 14.54, kg, 06/08/23 16:20:00 EDT, Dosing Weight Start: 09-29-2023 See Instructions , Freestyle Test Strips. Use to check blood sugar 4 times daily with insulin administrations. #1 box of 100 strips, # 1 EA, 11 Refill(s), Pharmacy: [place] [address], 158, cm, 02/10/24 8:25:00 EST, Height, 104.5, kg, 02/10/24 8:24:00 EST, Dosing Weight Start: 03-14-2024 See Instructions , qs 1 month supply. one touch lancets. Pt tests 4 times a day, # 100 EA, 11 Refill(s), Pharmacy: [place] [address], 159, cm, 06/03/23 13:51:00 EST, Height, 14.54, kg, 06/08/23 16:20:00 EDT, Dosing Weight Start: 09-29-2023 ONETOUCH DELICA PLUS LANCETS EXTRA FINE 33G MISC, 0 Refill(s), 101 Start: 12-05-2022 See Instructions , qs for 1 month supply. 31 G x 8 mm 5/16 use as diecte, # 1 EA, 11 Refill(s), Pharmacy: [place] [address], 158, cm, 12/21/23 12:59:00 EDT, Height, 105.7, kg, 12/21/23 12:59:00 EDT, Dosing Weight Start: 01-04-2024 See Instructions , 1 bottle of 100. Onetouch Verio. Testing QID. dx: E10.9, # 100 EA, 11 Refill(s), Pharmacy: [place] [address], 159, cm, 06/03/23 13:51:00 EST, Height, 14.54, kg, 06/08/23 16:20:00 EDT, Dosing Weight Start: 09-29-2023 See Instructions , Freestyle Test Strips. Use to check blood sugar 4 times daily with insulin administrations. #1 box of 100 strips, # 1 EA, 11 Refill(s), Pharmacy: [place] [address], 158, cm, 02/10/24 8:25:00 EST, Height, 104.5, kg, 02/10/24 8:24:00 EST, Dosing Weight Start: 03-14-2024 See Instructions , qs 1 month supply. one touch lancets. Pt tests 4 times a day, # 100 EA, 11 Refill(s), Pharmacy: [place] [address], 159, cm, 06/03/23 13:51:00 EST, Height, 14.54, kg, 06/08/23 16:20:00 EDT, Dosing Weight Start: 09-29-2023 ONETOUCH DELICA PLUS LANCETS EXTRA FINE 33G MISC, 0 Refill(s), 101 Start: 12-05-2022 See Instructions , qs for 1 month supply. 31 G x 8 mm 08/12 use as diecte, # 1 EA, 11 Refill(s), Pharmacy: [place] [address], 158, cm, 12/21/23 12:59:00 EDT, Height, 105.7, kg, 12/21/23 12:59:00 EDT, Dosing Weight Start: 01-04-2024 See Instructions , 1 bottle of 100. Onetouch Verio. Testing QID. dx: E10.9, # 100 EA, 11 Refill(s), Pharmacy: [place] [address], 159, cm, 06/03/23 13:51:00 EST, Height, 14.54, kg, 06/08/23 16:20:00 EDT, Dosing Weight Start: 09-29-2023 See Instructions , Freestyle Test Strips. Use to check blood sugar 4 times daily with insulin administrations. #1 box of 100 strips, # 1 EA, 11 Refill(s), Pharmacy: [facility] [id number], 158, cm, 02/10/24 8:25:00 EST, Height, 104.5, kg, 02/10/24 8:24:00 EST, Dosing Weight Start: 03-14-2024 See Instructions , qs 1 month supply. one touch lancets. Pt tests 4 times a day, # 100 EA, 11 Refill(s), Pharmacy: [facility] [id number], 159, cm, 06/03/23 13:51:00 EST, Height, 14.54, kg, 06/08/23 16:20:00 EDT, Dosing Weight Start: 09-29-2023 ONETOUCH DELICA PLUS LANCETS EXTRA FINE 33G MISC, 0 Refill(s), 101 Start: 12-05-2022 See Instructions , qs for 1 month supply. 31 G x 8 mm 08/12 use as diecte, # 1 EA, 11 Refill(s), Pharmacy: [facility] [id number], 158, cm, 12/21/23 12:59:00 EDT, Height, 105.7, kg, 12/21/23 12:59:00 EDT, Dosing Weight Start: 01-04-2024 Goals Date Patient Goal Desired Activity /State Functional Status Date Assessment Result Facility 07-31-2024 Functional Status Assistive Device None A [facility] 07-31-2024 Functional Status Ambulation Amb ulation in [place], Ambulation in Room [facility] 07-30-2024 Functional Status Standard Safet y ID band on, Call device within reach, Bed in low position, Wheels locked, Bedside Cart Locked, Safety level maintained [facility] 11-18-2023 Functional Status Standard Safet y ID band on, Call device within reach, Bed in low position, Wheels locked, Upper/Half-Length side-rails up, Phone within reach, personal items within reach [facility] 10-11-2023 Functional Status Independent [facility] 10-11-2023 Functional Status ID band on, Call device within reach, Bed in low position, Wheels locked, Upper/Half-Length side-rails up, Visitor at bedside, Safety level maintained [facility] 11-18-2022 Functional Status Awake, Resting [facility] 11-18-2022 Functional Status confirmed [facility] 11-18-2022 Functional Status [facility] 11-10-2022 Functional Status ID band on, Call device within reach, Bed in low position, Wheels locked, Upper/Half-Length side-rails up, Phone within reach, Bedside Cart Locked, Safety level maintained [facility] 10-24-2022 Functional Status Door open, Room check performed [facility] 10-24-2022 Functional Status [facility] 10-24-2022 Functional Status [facility] 10-24-2022 Functional Status Single level home [facility] 10-24-2022 Functional Status Done [facility] 10-24-2022 Functional Status Sensory Deficits None [facility] 08-29-2022 Functional Status Independent [facility] 08-28-2022 Functional Status Awake [facility] 08-11-2022 Functional Status Room check performed [facility] 08-11-2022 Functional Status [facility] 08-11-2022 Functional Status [facility] 08-11-2022 Functional Status [facility] 08-11-2022 Functional Status [facility] 08-11-2022 Functional Status Maintained [facility] 07-23-2022 Functional status Activity Abili ty [place] Assist;With Assist of 1 [facility] Work Phone: 07-23-2022 Functional status Patient Activi ty Ambulates;Chair;Bathroom Privilege [facility] Work Phone: 07-15-2022 Functional status Chair [facility] Work Phone: 07-08-2022 Functional Status Resting [facility] 02-25-2022 Functional Status Ambulating in room, Up with assistance [facility] 02-25-2022 Functional Status [facility] 02-25-2022 [facility] 02-25[facility]22 Functional Status Room located n [facility], Room check performed [facility] 12-15-2021 Functional Status Room check performed [facility] 12-14-2021 [facility] 12-14-2021 Functional Status [facility] 12-13-2021 Functional Status Living Situati on Lives with family [facility] 12-13-2021 Functional Status Standard Safet y ID band on, Call device within reach, Bed in low position, Wheels locked, Safety level maintained [facility] 12-13-2021 Functional Status [facility] 11-04-2021 Functional Status Independent [facility] Mental Status Date Assessment Result Facility 07-31-2024 Mental Status Orientation Foll ows simple commands [facility] 07-31-2024 Mental Status [facility] 07-30-2024 Mental Status Oriented x 4 [facility] 11-18-2023 Mental Status Orientation Not oriented to time [facility] 10-11-2023 Mental Status Orientation Oriented x 4 [facility] 10-11-2023 Mental Status [facility] 04-27-2023 Cognitive function Voice/Name [facility] Work Phone: 04-07-2023 Cognitive function Level Of Consciousness Awake [facility] Work Phone: 11-18-2022 Mental Status Oriented x 4 [facility] 11-10-2022 Mental Status Oriented x 4 [facility] 10-24-2022 Mental Status Orientation Orie nted x 4, Follows simple commands [facility] 10-24-2022 Mental Status [facility] 10-24-2022 Mental Status [facility] 08-29-2022 Mental Status Orientation Oriented x 4 [facility] 08-28-2022 Mental Status [facility] 08-11-2022 Mental Status Orientation Oriented x [address] [facility] 08-11-2022 Mental Status [facility] 08-11-2022 Mental Status [facility] 08-11-2022 Mental Status Orientation Asse ssment Oriented x 4 [facility] 07-23-2022 Cognitive function Voice/Name [facility] Work Phone: 07-15-2022 Cognitive function Voice/Name [facility] Work Phone: 07-15-2022 Cognitive function Cooperative [facility] Work Phone: 07-13-2022 Cognitive function Memory Description Int act [facility] Work Phone: 07-12-2022 Cognitive function Level Of Cons ciousness Awake;Alert;Appropriate;Follow s Commands [facility] Work Phone: 02-25-2022 Mental Status Orientation Oriented x [address] [facility] 02-25-2022 Mental Status [facility] 12-15-2021 Mental Status Oriented x 4, Forgetful [facility] 12-14-2021 Mental Status [facility] 12-13-2021 Mental Status [facility] 12-13-2021 Mental Status [facility] 12-13-2021 Mental Status Orientation Not oriented to place, Not oriented to time [facility] 12-13-2021 Mental Status [facility] 11-04-2021 Mental Status Orientation Oriented x 4 [facility] Clinical Notes 08-30-2021 to 08-02-2024 Note Date & Type Note Facility 08-02-2024 Note [facility] 07-31-2024 Hospital Discharge instructions Patient Education 07/31/2024 [...] and water are not available, use alcohol-based tire beader maker to keep from spreading the infection to [...] Yellow color of the eyes or skin 2443-0966 [employer]. [address] [place] [address]. All rights reserved. This information is not intended as a substitute for professional medical care. Always follow your healthcare professional's instructions. Follow Up Care 07/31/2024 02:49:09 With:Go to emergency room if symptoms worsen Address:Unknown When:2-4 days With:DENISSE SUTTON APRN-[facility] Address: [address] [place] [address] [address] [facility] [place] [address]- [phone] When:2-4 days [facility] 07-31-2024 Note Discharge Instructions Thank you for allowing [facility] to assist you with your healthcare needs. [...] 2-4 days Where:[address] [facility] [place] [address]- [phone] Allergies NKA Medications Please ask your primary [...] by mouth Once a day Unchanged multivitamin (Hernshaw Caps) 1 cap by mouth Once a [...] and water are not available, use alcohol-based tire beader maker to keep from spreading the infection to [...] Yellow color of the eyes or skin 5468-7993 [employer]. [address] [place] [address]. All rights reserved. This information is not intended as a substitute for professional medical care. Always follow your healthcare professional's instructions. Additional Information VACCINATE! IT SAVES LIVES! Members of the community who have not yet received the COVID-19 vaccine and would like to receive it can visit one of [facility] vaccine clinics. There are many vaccine clinic locations within the [facility]. For locations and available times, please visit www.gettheshot.coronavirus.[place]. gov/. It is important to note that some COVID mobile vaccine clinics are held outdoors and may be canceled in rainy or stormy conditions. To learn more about pediatric vaccinations (ages 5-11), we invite you to visit the [facility] webpage. https://www.[facility].org/p ages/8644-Cwely-Addldbohizl-Freq gdsykj-Ixqwm-Nstdbhlty.html To learn more about the COVID-19 vaccine, we invite you to visit the CDC website for a list of frequently asked questions. https://www.cdc.gov/coronavirus/ 2019-ncov/vaccines/faq.html [email or web address] Patient Portal Access Instructions: Stay connected with your healthcare team and access your personal medical information anytime with the [email or web address] Patient Portal. If you would like a full copy of your medical records please contact the [facility] Medical Records Department Thursday through Thursday between 8a.m. and 4:30p.m. Please follow the directions below to access the portal: 1.Access the email account you provided upon registration to the [facility].2.Look for an invitation email from [facility].3.Open the email and access the invitation link: Accept Invitation to [email or web address].Fill in the required gilmore to create your account. Sign into [email or web address] with your username and password that you [...] you will allow to register on the [email or web address] Patient Portal for access to your information. You can also access the [email or web address] Patient Portal on the Semantics3. Simply click on Health Records under Health Data and then click on the SquareHook logo. HOW TO SAFELY DISPOSE OF PRESCRIPTION [...] Call your local pharmacy or go to http://BriefMe.Tangible Cryptography/9O9Pb3i to find one close to you.3.Make use of household items: Use cat litter or old coffee grounds to dispose medications if other options are not available. Mix your drugs with these household products, seal them in an airtight container and throw it into the garbage. Call [facility]: [phone] to be sure your drugs can be [...] aware that I should contact my doctor. Patient/C.O.D. Audit Clerk Signature: Date/Time: Relationship to Patient: Witness Name/Signature: Date/Time: [facility] 07-31-2024 Note Exam Date Time Procedure Performing Provider Status 07/31/24 3:59 AM XR Chest 1 View RC CALZADA MD; A [facility] [place] (Verified) [id number] ORIGINAL EXAMINATION: ONE XRAY VIEW OF THE [...] 07/31/2024 4:10:24 AM Ordering Provider: TORRI MCCLAIN [facility]05-04-2025 Note* Exam Date Time Procedure Performing Provider Status 07/31/24 3:24 AM EKG [ED AO] - CV TORRI MCCLAIN DO; Aut h (Verified) ECG Final Report Sinus or ectopic atrial rhythm Prolonged DC interval Left bundle branch block Electronic Signature: TORRI MCCLAIN DO 07/31/2024 04:12:26 [facility]05-03-2025 Hospital Discharge instructions Patient Education 07/30/2024 14:12:20 [...] loosen secretions in the nose and lungs. Zhdz-tlf-dbbober cold medicines will not shorten the length of time you re sick, but they may be helpful for the following symptoms: cough, sore throat, and nasal and sinus congestion. If you take prescription medicines, ask your healthcare provider or pharmacist which vvtb-zsf-couubsq medicines are safe to use. (Note: Don't [...] it goes along with a muffled voice 0713-5107 [employer]. [address] [place] [address]. All rights reserved. This information is not intended as a substitute for professional medical care. Always follow yourhealthcare professional's instructions. Follow Up Care 07/30/2024 14:01:26 With:DENISSE SUTTON Address: [address] [place] [address] [phone] When:2-4 days [facility] 05-03-2025 Emergency department Discharge summary Discharge Instructions Thank you for allowing [facility] to assist you with your healthcare needs. The following is importantdischarge information regarding your hospital visit. Diagnosis from Today's Visit Viral URI What to Do Next Instructions from Your Care Team No qualifying data available. Post Acute Orders No qualifying data available. You Need to Schedule the Following Appointments Follow Up with DENISSE SUTTON When:Within 2-4 days Where:[place] [address] [phone] Allergies NKA Medications Please ask your primary [...] loosen secretions in the nose and lungs. Bgaw-erv-uqremqn cold medicines will not shorten the length of time you re sick, but they may be helpful for the following symptoms: cough, sore throat, and nasal and sinus congestion. If you take prescription medicines, ask your healthcare provider or pharmacist which ortf-nfd-wykofnn medicines are safe to use. (Note: Don't [...] it goes along with a muffled voice [phone] [employer]. [address] [place] [address]. All rights reserved. This information is not intended as a substitute for professional medical care. Always follow yourhealthcare professional's instructions. Additional Information VACCINATE! IT SAVES LIVES! Members of the community who have not yet received the COVID-19 vaccine and would like to receive it can visit one of [facility] vaccine clinics. There are many vaccine clinic locations within the [facility]. For locations and available times, please visit www.gettheshot.coronavirus.[place].gov/. It is important to note that some COVID mobile vaccine clinics are held outdoors and may be canceled in rainy or stormy conditions. To learn more about pediatric vaccinations (ages 5-11), we invite you to visit the [facility] webpage. https://www.[facility].org/pages/1501-Ryljf-Yeajwhzvbof-Vofxkgqwbw-Fxgih-Dwt stions.htmlTo learn more about the COVID-19 vaccine, we invite you to visit the CDC website for a list of frequently asked questions. https://www.cdc.gov/coronavirus/2019-ncov/vaccines/faq.html [facility] Patient Portal Access Instructions: Stay connected with your healthcare team and access your personal medical information anytime with the [email or web address] Patient Portal. If you would like a full copy of your medical records please contact the [facility] Medical Records Department Thursday through Thursday between 8a.m. and 4:30p.m. Please follow the directions below to access the portal: 1.Access the email account you provided upon registration to the [facility].2.Look for an invitation email from [facility].3.Open the email and access the invitation link: Accept Invitation to [facility].Fill in the required gilmore to create your account. Sign into [email or web address] with your username and password that you [...] you will allow to register on the [facility] Patient Portal for access to your information. You can also access the [email or web address] Patient Portal on the Semantics3. Simply click on Health Records under Transonic Combustion and then click on the SquareHook logo. HOW TO SAFELY DISPOSE OF PRESCRIPTION [...] Call your local pharmacy or go to http://BriefMe.Tangible Cryptography/3X7Vd0i to find one close to you.3.Make use of household items: Use cat litter or old coffee grounds to dispose medications if other options arenot available. Mix your drugs with these household products, seal them in an airtight container andthrow it into the garbage. Call [facility]: [phone] to be sure your drugs can be [...] am aware that I should contactmy doctor. Patient/C.O.D. Audit Clerk Signature: Date/Time: Relationship to Patient: Witness Name/Signature: Date/Time: [facility]09-19-2024 [facility] 11-23-2023 Note. MICRO - Microbiology PROCEDURE: [...] Locations *1: This test was performed at: [address], [address] [place], [place] [address]011-23-2023 Note. MICRO - Microbiology PROCEDURE: Blood Culture [...] Locations *1: This test was performed at: [address], [address] [place] [address] ([place])11-21-2023 [facility]08-21-2024 Note ORIGINAL EXAMINATION: TWO XRAY VIEWS [...] Date: 11/18/2023 12:03:57 PM [facility] NoteSinus rhythm Prolonged DC interval Anterior infarct, old Electronic Signature: EVELINA CURTIS MD 11/18/2023 10:40:21[facility] 07-15-2024 Hospital Discharge instructions Patient Education 10/11/2023 [...] worsens and is not improved with elevation. 8659-1394 [employer]. [address] [place] [address], [place] [address]. All rights reserved. This information is not intended as a substitute for professional medical care. Always follow yourhealthcare professional's instructions. Follow Up Care 10/11/2023 21:12:26 With:DENISSE SUTTON Address: [place] [address]- [phone] When:2-4 days [facility] 07-14-2024 Note Discharge Instructions Thank you for allowing [facility] to assist you with your healthcare needs. The following is importantdischarge information regarding your hospital visit. What to Do Next Instructions from Your Care Team No qualifying data available. Post Acute Orders No qualifying data available. You Need to Schedule the Following Appointments Follow Up with DENISSE SUTTON When:Within 2-4 days Where:[place] [address] [phone] Allergies NKA Medications Please ask your primary [...] worsens and is not improved with elevation. 8599-3799 [employer]. [address] [facility], [place] [address]. All rights reserved. This information is not intended as a substitute for professional medical care. Always follow yourhealthcare professional's instructions. Additional Information VACCINATE! IT SAVES LIVES! Members of the community who have not yet received the COVID-19 vaccine and would like to receive it can visit one of [facility] vaccine clinics. There are many vaccine clinic locations within the State. For locations and available times, please visit www.gettheshot.coronavirus.[place].gov/. It is important to note that some COVID mobile vaccine clinics are held outdoors and may be canceled in rainy or stormy conditions. To learn more about pediatric vaccinations (ages 5-11), we invite you to visit the [facility] webpage. https://www.[facility].org/pages/5028-Dvdhu-Uxesvrkltom-Jjokhqmzra-Missp-Xzr stions.htmlTo learn more about the COVID-19 vaccine, we invite you to visit the CDC website for a list of frequently asked questions. https://www.cdc.gov/coronavirus/2019-ncov/vaccines/faq.html [facility] Patient Portal Access Instructions: Stay connected with your healthcare team and access your personal medical information anytime with the [email or web address] Patient Portal. If you would like a full copy of your medical records please contact the [facility] Medical Records Department Thursday through Thursday between 8a.m. and 4:30p.m. Please follow the directions below to access the portal: 1.Access the email account you provided upon registration to the hospital.2.Look for an invitation email from [facility].3.Open the email and access the invitation link: Accept Invitation to [email or web address]4.Fill in the required gilmore to create your account. Sign into [email or web address] with your username and password that you [...] you will allow to register on the [email or web address] Patient Portal for access to your information. You can also access the [facility] Patient Portal on the Open Me toby. Simply click on Health Records under [employer]onic Combustion and then click on the SquareHook logo. HOW TO SAFELY DISPOSE OF PRESCRIPTION [...] Call your local pharmacy or go to http://BriefMe.Tangible Cryptography/2Z0Ls0j to find one close to you.3.Make use of household items: Use cat litter or old coffee grounds to dispose medications if other options arenot available. Mix your drugs with these household products, seal them in an airtight container andthrow it into the garbage. Call [facility]: [phone] to be sure your drugs can be [...] am aware that I should contactmy doctor. Patient/C.O.D. Audit Clerk Signature: Date/Time: Relationship to Patient: Witness Name/Signature: Date/Time: [facility]07-14-2024 Note ORIGINAL EXAMINATION: TWO XRAY VIEWS OF [...] Sign Date: 10/11/2023 10:11:25 PM Ordering Provider: [facility]06-11-2024 Miscellaneous Notes* Sedation Documentation - Sanjuanita Bustillos RN - 09/08/2023 10:36 AM EDT Patient given discharge instructions and discharged home with sister. * Sedation Documentation - Sanjuanita Bustillos RN - 09/08/2023 10:33 AM EDT Pressure held by Max Pugh, no bleeding noted, DSD applied. * Sedation Documentation - Sanjuanita Bustillos RN - 09/08/2023 10:27 AM EDT Catheter removed intact [facility] Nurse procedure note* Sedation Documentation - Sanjuanita Bustillos RN - 09/08/2023 10:36 AM EDT Patient given discharge instructions and discharged home with sister. [facility]06-11-2024 Nurse procedure note* Sedation Documentation - Sanjuanita Bustillos RN - 09/08/2023 10:33 AM EDT Pressure held by Max Zepeda Rt, no bleeding noted, DSD applied. [facility]06-11-2024 Surgery Surgical operation note* Brief Op Note - Jeremy Aguirre MD, MD - 09/08/2023 10:32 AM EDT BRIEF OPERATIVE / PROCEDURE NOTE LOG ID: [id number] SURGERY/PROCEDURE DATE: 09/08/2023 INCISION/PROCEDURE START TIME: 10:26 AM INCISION CLOSE/PROCEDURE END TIME: SURGEON(S)/PROCEDURALIST(S) AND REVIT DRAFTER(S): Surgeon(s) and Role: * Jeremy Aguirre MD, MD - Primary No Additional Staff SURGERY/PROCEDURE(S): Removal of tunneled dialysis catheter ANESTHESIA: Local FINDINGS: Successful removal ESTIMATED BLOOD LOSS: Minimal SPECIMENS: None COMPLICATIONS: None CLOSURE TECHNIQUE: Primary PRE-OP/PRE-PROCEDURE DIAGNOSIS: Renal failure POST-OP/POST-PROCEDURE DIAGNOSIS: Same as Preop SIGNATURE: Jeremy Aguirre MD PATIENT NAME: Zayda Davis DATE: September 08, 2023 TIME: 10:32 AM [facility] Work Phone: 1(593) 333-542606-11-2024 Surgical operation note* Brief Op Note - Jeremy Aguirre MD, MD - 09/08/2023 10:32 AM EDT BRIEF OPERATIVE / PROCEDURE NOTE LOG ID: [id number] SURGERY/PROCEDURE DATE: 09/08/2023 INCISION/PROCEDURE START TIME: 10:26 AM INCISION CLOSE/PROCEDURE END TIME: SURGEON(S)/PROCEDURALIST(S) AND REVIT DRAFTER(S): Surgeon(s) and Role: * Jeremy Aguirre MD, MD - Primary No Additional Staff SURGERY/PROCEDURE(S): Removal of tunneled dialysis catheter ANESTHESIA: Local FINDINGS: Successful removal ESTIMATED BLOOD LOSS: Minimal SPECIMENS: None COMPLICATIONS: None CLOSURE TECHNIQUE: Primary PRE-OP/PRE-PROCEDURE DIAGNOSIS: Renal failure POST-OP/POST-PROCEDURE DIAGNOSIS: Same as Preop SIGNATURE: Jeremy Aguirre MD PATIENT NAME: Zayda Davis DATE: September 08, 2023 TIME: 10:32 AM [facility] Nurse procedure note* Sedation Documentation - Sanjuanita Bustillos RN - 09/08/2023 10:27 AM EDT Catheter removed intact [facility]02-27-2024 Note* Exam Date Time Procedure Performing Provider Status 05/26/23 2:17 PM Echocardiogram, Adult - CV Auth (Verified) [facility] 01-29-2024 Discharge summary Author Cipriano Trujillo [facility] April 27, 2023 1:18pm Note Date/Time April 27, 2023 1 2:50pm [facility] Medical Records Department [address] [place] [address] Instructions for Home/Discharge Instructions 04/27/23 1249 MR#: [id number] Acct: [id number] Name: ZAYDA DAVIS Rep #:[id number] : [...] Referrals / Follow Up: Denisse Sutton NP, IRONING WORKER-C [Primary Care Provider] - Disposition Disposition (needs filled in before D/C Order can be placed): Home, Self Care 04/27/23 1318<Electronically signed by Cipriano Trujillo MD>Cipriano Trujillo MD CC: IRONING WORKER-C Denisse Sutton ~ Signed [facility] Work Phone: 1(646) 413-193801-29-2024 Procedure [facility] 04-27-2023 History and physical note Author Cipriano Trujillo [facility] April 27, 2023 10:44am Note Date/Time April 27, 2023 1 0:45am [facility] Medical Records Department [address] [place] [address] History & Physical Exam 04/27/23 1044 MR#: [id number] Acct: [id number] Name: ZAYDA DAVIS Rep #:[id number] : 1965 57 From: Cipriano Trujillo MD PCP: TERESA Mas Status:[facility] S PR Location: [place] [address] History and Physical Allergies No Known Allergies [...] vitamin C no.20-folic acid 1 mg capsule (Hernshaw Caps) 1 cap PO DAILY 01/13/23 [History [...] failure Anxiety Atherosclerosis of coronary artery of [place] heart without angina pectoris Bilateral carotid bruits [...] alcohol intake: never HPI HPI HPI: ZAYDA DVAIS, is a 57 F who presents to [...] nourished Orientation: alert, awake and oriented x3 [facility] Head: normocephalic and atraumatic Ears: hearing grossly [...] TERESA Sutton; Dr. Cipriano Trujillo MD~ Signed [facility] Work Phone: 1(984) 505-897610-26-2023 History and physical note Author Cipriano Trujillo [facility] January 22, 2023 10:07am Note Date/Time January 22, 2023 7 :46am [facility] Medical Records Department [address] [place] [address] History & Physical Exam 01/22/23 0733 MR#: [id number] Acct: [id number] Name: ZAYDA DAVIS Rep #:[id number] : 1965 57 From: Roya LUKE PCP: TERESA Mas Status:REG S DC Location: [facility] HPI - General HPI Narrative [...] other than itchingfrom the poison sekou today. [facility], [facility] Medical History Acute alteration in mental status Acute renal injury due to circulatory failure Anxiety Atherosclerosis of coronary artery of [place] heart without angina pectoris Bilateral carotid bruits [...] MARLY Shirley; Dr. Cipriano Trujillo MD~ Signed [facility] Work Phone: 1(213) 576-790310-26-2023 Procedure [facility] 11-18-2022 Hospital Discharge instructions Patient Education 11/18/2022 14:37:23 1-[facility] Discharge Instructions Template (12/2017) KELSEY SAME DAY [...] us better serve our patients. Form: 1522 (45039) R: 07/06 Follow Up Care 11/12/2022 13:59:37 With:LEE CASH MD Address: [address] [place] [address] [facility] [place] [address]- When: Unknown Comments:Follow-up with Dr. Cash [facility] 08-22-2023 Evaluation + Plan noteExtracted from: [...] 10/28/2022 and can be found in the [facility] Electronic Medical Records ([facility]). Sloane Mak PA-C Interventional Radiology Pager: [phone] IR dept: x [phone] Available on [facility] Future Appointments Appointment Date:12/30/2022 03:00:00 PM Scheduled Provider:DENISSE SUTTON Location:[facility] Appointment Type:PC Wellness Medicare Appointment Date:01/09/2023 03:30:00 PM Scheduled Provider: Location:[facility] Appointment Type:DB Diabetic Individual Visit (AOH) Future Scheduled Tests Laboratory* Lipid Profile 05/28/22 * Vitamin D Level 05/28/22 * Complete Metabolic Panel 05/28/22 [facility] 08-22-2023 Note* Inez Chaney Real Estate Transaction Manager: SIGN, AUTHOR, PERFORM, SIGN, AUTHOR Event Display: IR Procedure Record Authored Date: [id number] IR Procedure Record Summary Primary Physician: STEVIE WEST MD Finalized Date/Time: 11/18/22 11:03:48 Pt. Name: ZAYDA DAVIS /Sex: 1965 Female Med Rec #: [id number] Physician: Financial #: [id number] Pt. Type: S Room/Bed: [facility]A Admit/Disch: 11/18/22 07:52:44 - Institution: Allergies identified in patient's electronic medical record at time of printing on 11/18/22 Entry 1 Substance NKA Reaction Type Allergy Last Modified By: SAPNA Bowles 07/16/18 17:33:02 Case Attendance- IR Entry 1 Entry 2 Entry 3 Case Attendee STEVIE WEST MD, Colten G Hershberger, Terra L Real Estate Transaction Manager Role Performed Primary Surgeon Scrub Technologist Circulating Technologist Details Time In 11/18/22 10:17:00 11/18/22 10:17:00 11/18/22 10:17:00 Time Out 11/18/22 11:08:00 11/18/22 11:08:00 11/18/22 11:08:00 Procedure/Preference IR Arteriogram AV Shunt IR Arteriogram AV Shunt IR Arteriogram AV Shunt Card Fistulogram SN Fistulogram SN Fistulogram SN Last Modified By: Inez Chaney Terra L Hershberger, Terra L Real Estate Transaction Manager 11/18/22 Real Estate Transaction Manager 11/18/22 Real Estate Transaction Manager 11/18/22 11:00:01 11:00:01 11:00:01 Entry 4 Case Attendee Emma Peng RN Role Performed Procedure Nurse Details Time In 11/18/22 10:17:00 Time Out 11/18/22 11:08:00 Procedure/Preference IR Arteriogram AV Shunt Card Fistulogram SN Last Modified By: Inez Chaney Real Estate Transaction Manager 11/18/22 11:00:01 Radiology Procedures- IR Entry 1 [...] time clot Last Modified By: Inez Chaney [employer] 11/18/22 11:03:47 General Case Data - IR [...] 11/18/22 10:47:00 Last Modified By: Inez Chaney [employer] 11/18/22 11:00:00 Immediate Post Procedure Note - [...] images and Inez Chaney results are properly Real Estate Transaction Manager, Danish, alejo and Emma Jordan RN appropriately [...] Radiology - Action Plan Outcomes Met? Yes Early Childhood Emma Peng RN Completing Procedure Plan Last Modified By: Emma Peng RN 11/18/22 10:40:22 Case Comments <None> Finalized By: Inez Chaney Document Signatures Signed By: Inez Chaney 11/18/22 11:00 Inez Chaney Real Estate Transaction Manager 11/18/22 11:03 [facility] 08-22-2023 Note IR Procedure Record Summary Primary Physician: STEVIE WEST MD Finalized Date/Time: 11/18/22 11:03:48 Pt. Name: ZAYDA DAVIS /Sex: 1965 Female Med Rec #: [id number] Physician: Financial #: [id number] Pt. Type: S Room/Bed: [facility]A Admit/Disch: 11/18/22 07:52:44 - Institution: Allergies identified in patient's electronic medical record at time of printing on 11/18/22 Entry 1 Substance NKA Reaction Type Allergy Last Modified By: SAPNA Bowles 07/16/18 17:33:02 Case Attendance- IR Entry 1 Entry 2 Entry 3 Case Attendee STEVIE WEST MD, Colten G Hershberger, Terra L Real Estate Transaction Manager Role Performed Primary Surgeon Scrub Technologist Circulating Technologist Details Time In 11/18/22 10:17:00 11/18/22 10:17:00 11/18/22 10:17:00 Time Out 11/18/22 11:08:00 11/18/22 11:08:00 11/18/22 11:08:00 Procedure/Preference IR Arteriogram AV Shunt IR Arteriogram AV Shunt IR Arteriogram AV Shunt Card Fistulogram SN Fistulogram SN Fistulogram SN Last Modified By: Inez Chaney Terra L Hershberger, Terra L Real Estate Transaction Manager 11/18/22 Real Estate Transaction Manager 11/18/22 Real Estate Transaction Manager 11/18/22 11:00:01 11:00:01 11:00:01 Entry 4 Case Attendee Emma Peng RN Role Performed Procedure Nurse Details Time In 11/18/22 10:17:00 Time Out 11/18/22 11:08:00 Procedure/Preference IR Arteriogram AV Shunt Card Fistulogram SN Last Modified By: Inez Chaney Real Estate Transaction Manager 11/18/22 11:00:01 Radiology Procedures- IR Entry 1 [...] time clot Last Modified By: Inez Chaney Real Estate Transaction Manager 11/18/22 11:03:47 General Case Data - IR [...] 11/18/22 10:47:00 Last Modified By: Inez Chaney [employer] 11/18/22 11:00:00 Immediate Post Procedure Note - [...] images and Inez Chaney results are properly Real Estate Transaction Manager, Danish, labeled and Emma Jordan RN appropriately [...] Radiology - Action Plan Outcomes Met? Yes Early Childhood Emma Peng RN Completing Procedure Plan Last Modified By: Emma Peng RN 11/18/22 10:40:22 Case Comments Finalized By: Inez Chaney [employer] Document Signatures Signed By: Inez Chaney 11/18/22 11:00 Inez Chaney Real Estate Transaction Manager 11/18/22 11:03 [facility] History and physical note IR PREPROCEDURE H&P [...] 10/28/2022 and can be found in the [facility] ([facility]). Sloane Mak PA-C Interventional Radiology Pager: [phone] IR dept: [phone] Available on [employer] Digitally Signed by SLOANE MAK PA-C on 11/18/2022 09:28 AM Digitally Signed by STEVIE WEST MD on 11/18/2022 10:06 AM [facility]uamxfvy61-[facility]-7659 Hospital Discharge instructions Patient Education 11/10/2022 23:17:41 [...] injured hand Frequent bruising for unknown reasons [id number] [employer]. [address] [place] [address], [place] [address]. All rights reserved. This information is not [...] or eye Frequent bruising for unknown reasons 3564-4487 [employer]. [address] [place] [address]. All rights reserved. This information is not intended as a substitute for professional medical care. Always follow yourhealthcare professional's instructions. Follow Up Care 11/10/2022 22:28:34 With:DENISSE SUTTON Address: [address] [place] [address] [phone] When:2-4 days [facility] 08-14-2023 Note Discharge Instructions Thank you for allowing [facility] to assist you with your healthcare needs. [...] When Within 2-4 days Where: [place] [address] [phone] Allergies NKA Medications Please ask your primary [...] injured hand Frequent bruising for unknown reasons 5191-4888 [employer]. [address] [place] [address]. All rights reserved. This information is not [...] or eye Frequent bruising for unknown reasons [phone] [employer]. [address] [place] [address]. All rights reserved. This information is not intended as a substitute for professional medical care. Always follow yourhealthcare professional's instructions. Additional Information VACCINATE! IT SAVES LIVES! Members of the community who have not yet received the COVID-19 vaccine and would like to receive it can visit one of [facility] vaccine clinics. There are many vaccine clinic locations within the [facility]. For locations and available times, please visit www.[email or web address].[place].gov/. It is important to note that some COVID mobile vaccine clinics are held outdoors and may be canceled in rainy or stormy conditions. To learn more about pediatric vaccinations (ages 5-11), we invite you to visit the [facility] webpage. https://www.[facility].org/pages/3856-Uaslx-Kpeyjnirhkr-Qgerorneci-Wdhcy-Yeq stions.htmlTo learn more about the COVID-19 vaccine, we invite you to visit the CDC website for a list of frequently asked questions. https://www.cdc.gov/coronavirus/2019-ncov/vaccines/faq.html [facility] Patient Portal Access Instructions: Stay connected with your healthcare team and access your personal medical information anytime with the [email or web address] Patient Portal. If you would like a full copy of your medical records please contact the [facility] Medical Records Department Thursday through Thursday between 8a.m. and 4:30p.m. Please follow the directions below to access the portal: 1.Access the email account you provided upon registration to the hospital.2.Look for an invitation email from [facility].3.Open the email and access the invitation link: Accept Invitation to [email or web address].Fill in the required gilmore to create your account. Sign into [email or web address] with your username and password that you [...] you will allow to register on the [facility] Patient Portal for access to your information. You can also access the [facility] Patient Portal on the Open Me toby. Simply click on Health Records under [employer] and then click on the SquareHook logo. HOW TO SAFELY DISPOSE OF PRESCRIPTION [...] Call your local pharmacy or go to [email or web address] to find one close to you.3.Make use of household items: Use cat litter or old coffee grounds to dispose medications if other options arenot available. Mix your drugs with these household products, seal them in an airtight container andthrow it into the garbage. Call [facility]: [phone] to be sure your drugs can be [...] am aware that I should contactmy doctor. Patient/C.O.D. Audit Clerk Signature: Date/Time: Relationship to Patient: Witness Name/Signature: Date/Time: [facility]08-14-2023 Note ORIGINAL EXAMINATION: THREE XRAY VIEWS OF [...] Sign Date: 11/10/2022 11:08:59 PM Ordering Provider: [facility]08-14-2023 Note ORIGINAL EXAMINATION: THREE XRAY VIEWS OF [...] Sign Date: 11/10/2022 11:08:59 PM Ordering Provider: [facility]07-28-2023 Hospital Discharge instructions Patient Education 10/24/2022 16:24:52 [...] Follow these instructions at home: Medicines Take tiia-bzg-pjcjdxj and prescription medicines only as told by [...] and water are not available, use hand tire beader maker. Keep all follow-up visits as told by [...] 02/16/2007 Document Revised: 06/11/2018 Document Reviewed: 04/10/2017 Exuru! Patient Education 2020 Exuru! Inc. Follow Up Care 10/23/2022 14:43:03 With:Go to emergency room if symptoms worsen Address:Unknown When:1-2 days With:DENISSE SUTTON Address: [address] [place] [phone] When:1-2 days [facility] 07-28-2023 Note Discharge Instructions Thank you for allowing [facility] to assist you with your healthcare needs. [...] Follow-Up 10/28/2022 03:00 PM EDT DENISSE SUTTON [facility] db Diabetic Individual Visit (AOH) 01/09/2023 03:30 PM EDT [place] [phone] Follow Up Appointments Follow Up with Go to emergency room if symptoms worsen When Within 1-2 days Follow Up with DENISSE SUTTON When Within 1-2 days Where: [address] [place] [address] [phone] The Following Activity and Diet Have Been [...] Follow these instructions at home: Medicines Take sjpw-tnf-wsxpzro and prescription medicines only as told by [...] and water are not available, use hand tire beader maker. Keep all follow-up visits as told by [...] Document Reviewed: 04/10/2017 Elsevier Patient Education 2020 Exuru! Inc. Additional Information VACCINATE! IT SAVES LIVES! Members of the community who have not yet received the COVID-19 vaccine and would like to receive it can visit one of [facility] vaccine clinics. There are many vaccine clinic locations within the [facility]. For locations and available times, please visit [email or web address]/. It is important to note that some COVID mobile vaccine clinics are held outdoors and may be canceled in rainy or stormy conditions. To learn more about pediatric vaccinations (ages 5-11), we invite you to visit the [facility] webpage. https://www.[facility].org/pages/4078-Gbcxc-Xbhucdvpohi-Qtkytfpivk-Ulgil-Pnw stions.htmlTo learn more about the COVID-19 vaccine, we invite you to visit the CDC website for a list of frequently asked questions.https://www.cdc.gov/coronavirus/2019-ncov/vaccines/faq.html [facility] Patient Portal Access Instructions: Stay connected with your healthcare team and access your personal medical information anytime with the [facility] Patient Portal. Please follow the directions below to create your [facility] account: 1.Access the email account you provided upon registration to the hospital/physician office.2.Look for an invitation email from [facility].3.Open the email and access the invitation link: AcceptInvitation to [email or web address].4.Fill in the required gilmore to create your account. To access your account, visit [email or web address]. Click the blue button labeled Access Patient [...] who you will allowto register on the [facility] Patient Portal for access to your information. You can also access the [email or web address] Patient Portal on the BigBarnwhere toby. Simply click on Patient Portal and then log into your account. If you would like to receive a full copy of your medical records, please contact the [facility] Medical Records Department by calling [phone], Thursday through Thursday between 8 a.m. and [...] Call your local pharmacy or go to [email or web address] to find one close to you.3.Make use of household items: Use cat litter or old coffee grounds to dispose medications if other options arenot available. Mix your drugs with these household products, seal them in an airtight container andthrow it into the garbage. Call [facility]: [phone] to be sure your drugs can be [...] am aware that I should contactmy doctor. Patient/C.O.D. Audit Clerk Signature: Date/Time: Relationship to Patient: Witness Name/Signature: Date/Time: [facility]hiiqguq08-88-0359 Interventional radiology Progress note Patient presented to [...] no contact made with the IR attending underground mining section foreman -Dr. Sawant - regarding this issue. 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 Patient was just discharged from [facility] on 10/21/2022 for the same. 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 Patient was just discharged from [facility] on 10/21/2022 for the same. She had [...] by CATHERINE RENTERIA on 10/24/2022 02:59 PM [facility] HospitalOgnrazif46-12-3241 Evaluation + Plan noteExtracted from: Title:History and [...] Appointment Date:10/28/2022 03:00:00 PM Scheduled Provider:DENISSE SUTTON [facility] Appointment Type:[facility] Hospital Follow-Up Appointment Date:01/09/2023 03:30:00 PM Scheduled Provider: Location:[facility] Appointment Type:[facility] Diabetic Individual Visit (AOH) Future Scheduled Tests Laboratory* Lipid Profile 05/28/22 * Vitamin D Level 05/28/22 * Complete Metabolic Panel 05/28/22 [facility] 07-28-2023 Note Date of Service 10/24/2022 Chief Complaint AV fistula thrombosis Subjective 56-year-old female with past medical history significant for anemia, anxiety, CAD, HF PEF, ESRD on HD, type 2 diabetes mellitus, HLD, HTN. 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 Patient was just discharged from [facility] on 10/21/2022 for the same. She had [...] by CATHERINE RENTERIA on 10/24/2022 01:30 PM [facility] [id number] Palliative care Progress note Palliative care consulted [...] RADHA BARAJAS MD on 10/24/2022 01:03 PM [facility] HospitalUarwvkub43-77-8685 History and physical note Date of Service [...] Quiroz PharmD (10/10/22 16:23:00) Lab Performing Location: [facility] Clinic (10/10/22 16:23:00) Hgb A1c (AMB POC): [...] TOÑITO COVINGTON MD on 10/24/2022 01:50 AM [facility] HospitalWfwxsgyx65-80-9490 Hospital Discharge instructions Patient Education 08/29/2022 01:18:02 [...] and water are not available, use alcohol-based tire beader maker to keep from spreading the infection to [...] Yellow color of the eyes or skin 4649-8876 [employer]. [address] [place] [address]. All rights reserved. This information is not intended as a substitute for professional medical care. Always follow yourhealthcare professional's instructions. Follow Up Care 08/28/2022 23:29:36 With:DENISSE SUTTON Address: [place] [address] [phone] When:2-4 days [facility] 06-02-2023 Note Discharge Instructions Thank you for allowing [facility] to assist you with your healthcare needs. The following is importantdischarge information regarding your hospital visit. Diagnosis from Today's Visit Vomiting What to Do Next Instructions from Your Care Team No qualifying data available. Post Acute Orders No qualifying data available. You Need to Schedule the Following Appointments Follow Up with DENISSE SUTTON When Within 2-4 days Where: [place] [address] [phone] Allergies NKA Medications Please ask your primary [...] may report side effects to FDA at 2-835-YUG-9902. What other drugs will affect ondansetron? Ondansetron [...] interact with ondansetron. This includes prescription and efrn-nhr-zuohhco medicines, vitamins, and herbal products. Give a [...] to ensure that the information provided by [employer]. ('Mult[employer]') is accurate, up-to-date, and complete, but no guarantee is made to that effect. Drug information contained herein may be time sensitive. [employer] information has been compiled for use by healthcare practitioners and consumers in the [place] and therefore [employer] does not warrant that uses outside of the [place] are appropriate, unless specifically indicated otherwise. [employer] drug information does not endorse drugs, diagnose patients or recommend therapy. [employer] drug information isan informational resource designed to [...] effective or appropriate for any given patient. [employer] does not assume any responsibility for any aspect of healthcare administered with the aid of information [employer] provides. The information contained herein is not intended to cover all possible uses, directions, precautions, warnings, drug interactions, allergic reactions, or adverse effects. If you have questions about the drugs you are taking, check with your doctor, nurse or pharmacist. Copyright 8938-1252 [employer]. Version: 13.01. Revision Date: 01/18/2016. ondansetron (oral) [...] may report side effects to FDA at 1-252-BHG-8259. What other drugs will affect ondansetron? Ondansetron [...] interact with ondansetron. This includes prescription and pmfw-cbv-wfrzldl medicines, vitamins, and herbal products. Give a [...] to ensure that the information provided by [employer]. ('[employer]') is accurate, up-to-date, and complete, but no guarantee is made to that effect. Drug information contained herein may be time sensitive. [employer] information has been compiled for use by healthcare practitioners and consumers in the [place] and therefore [employer] does not warrant that uses outside of the [place] are appropriate, unless specifically indicated otherwise. [employer] drug information does not endorse drugs, diagnose patients or recommend therapy. [employer] drug information isan informational resource designed to [...] effective or appropriate for any given patient. [facility] does not assume any responsibility for any aspect of healthcare administered with the aid of information [facility] provides. The information contained herein is not intended to cover all possible uses, directions, precautions, warnings, drug interactions, allergic reactions, or adverse effects. If you have questions about the drugs you are taking, check with your doctor, nurse or pharmacist. Copyright 7122-3505 [employer]. Version: 13.01. Revision Date: 01/18/2016. Education Materials [...] and water are not available, use alcohol-based tire beader maker to keep from spreading the infection to [...] Yellow color of the eyes or skin 4352-1729 [employer]. [address] [place] [address], [place] [address]. All rights reserved. This information is not intended as a substitute for professional medical care. Always follow yourhealthcare professional's instructions. Additional Information VACCINATE! IT SAVES LIVES! Members of the community who have not yet received the COVID-19 vaccine and would like to receive it can visit one of [facility] vaccine clinics. There are many vaccine clinic locations within the [facility]. For locations and available times, please visit www.gettheshot.coronavirus.[place].gov/. It is important to note that some COVID mobile vaccine clinics are held outdoors and may be canceled in rainy or stormy conditions. To learn more about pediatric vaccinations (ages 5-11), we invite you to visit the [facility] webpage. https://www.[facility].org/pages/2224-Hfvoh-Xfrxbfrvkhv-Ajquphwlsy-Fgaws-Nnc stions.htmlTo learn more about the COVID-19 vaccine, we invite you to visit the CDC website for a list of frequently asked questions. https://www.cdc.gov/coronavirus/2019-ncov/vaccines/faq.html [facility] Patient Portal Access Instructions: Stay connected with your healthcare team and access your personal medical information anytime with the [email or web address] Patient Portal. If you would like a full copy of your medical records please contact the [facility] Medical Records Department Thursday through Thursday between 8a.m. and 4:30p.m. Please follow the directions below to access the portal: 1.Access the email account you provided upon registration to the hospital.2.Look for an invitation email from [facility].3.Open the email and access the invitation link: Accept Invitation to [email or web address].Fill in the required gilmore to create your account. Sign into [email or web address] with your username and password that you [...] you will allow to register on the [email or web address] Patient Portal for access to your information. You can also access the [email or web address] Patient Portal on the Open Me toby. Simply click on Health Records under [employer] and then click on the [employer] logo. [...] Call your local pharmacy or go to http://[email or web address].[email or web address] [email or web address] to find one close to you.3.Make use of household items: Use cat litter or old coffee grounds to dispose medications if other options arenot available. Mix your drugs with these household products, seal them in an airtight container andthrow it into the garbage. Call [facility]: [phone] to be sure your drugs can be [...] am aware that I should contactmy doctor. Patient/C.O.D. Audit Clerk Signature: Date/Time: Relationship to Patient: Witness Name/Signature: Date/Time: [facility]06-02-2023 Note ORIGINAL EXAMINATION: CT OF THE ABDOMEN [...] 08/29/2022 1:01:48 AM Ordering Provider: FREDDIE BURRIS [facility]06-02-2023 Note ORIGINAL EXAMINATION: CT OF THE ABDOMEN [...] Sign Date: 08/29/2022 1:01:48 AM Ordering Provider: [facility]05-15-2023 Discharge summary Date of Service 08/11/22 Discharge [...] MARCUS TORRES MD on 08/11/2022 09:02 AM [facility] HospitalBzpmkwmz24-41-1827 Hospital Discharge instructions Patient Education 08/11/2022 12:53:07 [...] until you are awake and alert. Take fobv-tzp-brmiagy and prescription medicines only as told by [...] 01/04/2014 Document Revised: 02/26/2018 Document Reviewed: 07/05/2016 Exuru! Patient Education 2020 [employer]. 08/11/2022 12:53:04 3- Heart Cath/PCI radial (12/2017) [...] Document Reviewed: 03/17/2014 ExitCare Patient Information 2015 [employer]. This information is not intended to replace advicegiven to you by your health care provider. Make sure you discuss any questions you have with your health care provider. Follow Up Care 07/17/2022 14:41:31 With:NATE CROW MD Address: [address] [place] [phone] When:09/03/2022 10:30:00 [facility] 05-15-2023 Summary of episode note Discharge Instructions Thank you for allowing [facility] to assist you with your healthcare needs. The following is importantdischarge information regarding your hospital visit. Your Care Team DENISSE SUTTON What to do next Scheduled Follow-Up Appointments Appointment Type When With Where Contact InformationCV OV 09/03/2022 10:30 AM EDT [facility] CV Ej LOCK OV 09/17/2022 02:30 PM EDT DENISSE SUTTON [facility] Diabetic Individual Visit (AOH) 10/08/2022 08:30 AM EDT [place] [facility] [phone] Follow Up Appointments Follow Up with NATE CROW MD When 09/03/2022 10:30 AM EDT Where: [address] [facility] [place] [address]- [phone] The Following Activity and Diet Have Been [...] Two (2) times a day Pickup at [place] [address] Unchanged allopurinol (allopurinol 100 mg oral tablet) [...] a day Duration: 90 Days Pharmacy Information [facility] [address]: [address] [place], [place] [phone] Please take this list to your next [...] until you are awake and alert. Take asfy-laa-nfdvunx and prescription medicines only as told by [...] 01/04/2014 Document Revised: 02/26/2018 Document Reviewed: 07/05/2016 Exuru! Patient Education 2020 Exuru! Inc. HEART CATHETERIZATION/PCI (radial) Discharge Instructions DIET [...] Document Reviewed: 03/17/2014 ExitCare Patient Information 2015 [employer]. This information is not intended to replace advicegiven to you by your health care provider. Make sure you discuss any questions you have with your health care provider. Additional Information VACCINATE! IT SAVES LIVES! Members of the community who have not yet received the COVID-19 vaccine and would like to receive it can visit one of [facility] vaccine clinics. There are many vaccine clinic locations within the [facility]. For locations and available times, please visit [email or web address].gov/. It is important to note that some COVID mobile vaccine clinics are held outdoors and may be canceled in rainy or stormy conditions. To learn more about pediatric vaccinations (ages 5-11), we invite you to visit the [facility] webpage. https://www.[facility].org/pages/0403-Kvgnr-Lhtfzagngmq-Syjjjecpqh-Wdhmh-Oao stions.htmlTo learn more about the COVID-19 vaccine, we invite you to visit the CDC website for a list of frequently asked questions.https://www.cdc.gov/coronavirus/2019-ncov/vaccines/faq.html [facility] Patient Portal Access Instructions: Stay connected with your healthcare team and access your personal medical information anytime with the [facility] Patient Portal. Please follow the directions below to create your [email or web address] account: 1.Access the email account you provided upon registration to the hospital/physician office.2.Look for an invitation email from [facility].3.Open the email and access the invitation link: AcceptInvitation to [email or web address].4.Fill in the required gilmore to create your account. To access your account, visit [email or web address]. Click the blue button labeled Access Patient Portal and then log in with the username and password that you created in the steps above. You will be able to view your test results, lab results, a summary of your visits, upcoming appointments and more. There is also a convenient messaging option where you can send secure messages to your p [employer]. In addition, you will have the ability to download any documents or summaries to your computer and/or send the information securely to a physician. Remember that your healthcare information is confidential, so carefully consider who you will allowto register on the [facility] Patient Portal for access to your information. You can also access the [facility] Patient Portal on the [facility]illantwhere toby. Simply click on Patient Portal and then log into your account. If you would like to receive a full copy of your medical records, please contact the [facility] Medical Records Department by calling [phone], Thursday through Thursday between 8 a.m. and [...] Call your local pharmacy or go to http://bit.ly/5I6Qo0c to find one close to you.3.Make use of household items: Use cat litter or old coffee grounds to dispose medications if other options arenot available. Mix your drugs with these household products, seal them in an airtight container andthrow it into the garbage. Call [facility]: [phone] to be sure your drugs can be [...] am aware that I should contactmy doctor. Patient/C.O.D. Audit Clerk Signature: Date/Time: Relationship to Patient: Witness Name/Signature: Date/Time: [id number] Discharge summary Date of Service 08/11/22 Discharge [...] No qualifying data available. Digitally Signed by MARUCS TORRES MD on 08/11/2022 09:02 AM [id number] Wyman [facility] July 23, 2022 4:21pm Note Date/Time July 23, 2022 3:5 9pm [facility] Medical Records Department [address] [place] [address] Instructions for Home/Discharge Instructions 07/23/22 1559 MR#: [id number] Acct: [id number] Name: ZAYDA DAVIS Rep #:[id number] : 1965 56 From: Patsy Wyman DO PCP: TERESA Mas Status:ADM I NO Discharge Instructions Diet [...] Referrals / Follow Up: Denisse Sutton NP, IRONING WORKER-C [Primary Care Provider] - Within 2 Weeks Disposition Disposition (needs filled in before D/C Order can be placed): Home, Self Care 07/23/22 1621<Electronically signed by Patsy Wyamn DO>Patsy Wyman DO CC: OLGA LIDIA-Julian Sutton ~ Signed [facility] Work Phone: 1(536) 720-877804-26-[address] Montenegro [facility] July 22, 2022 11:41pm Note Date/Time July 22, 2022 4:4 6pm [facility] Medical Records Department [address] [place] [address] Emergency Department Summary 07/22/22 MR#: [id number] Acct: [id number] Name: ZAYDA DAVIS Rep #:[id number] : 1965 56 From: Patsy Montenegro MD PCP: TERESA Mas Status:ADM I NO Location: [place] [address] HPI History of Present Illness Chief Complaint: [...] was increasing her p.o. fluids at home. [facility] Medical History Acute renal injury due to circulatory failure Anxiety Asthma Atherosclerosis of coronary artery of [place] heart without angina pectoris Bilateral carotid bruits [...] Medical decision making narrative: Patient placed on surveillance system monitor. CT head obtained given her altered mentation. [...] 74.3 H Lymph % (Auto) 11.2 L Dewitt % (Auto) 8.3 Eos % (Auto) 4.7 [...] mental status Disposition Disposition: Acute Care Hospital [facility] What to do if you have Problems For any increased pain, shortness of breath, bleeding, nausea or vomiting, chestpain, or any unexpected problems, contact your Primary Care Provider. Call [facility] ([phone]) or report to the closest Emergency Room. Call 911 if necessary. 07/22/22 7310 <Electronically signed by Patsy Montenegro MD> Cosigner Signature (if applicable): CC: TERESA Sutton ~ Signed [facility] Work Phone: 1([phone]) 922-974004-25-2023 History and physical note Author Dr. Wyman [facility] July 22, 2022 8:33pm Note Date/Time July 22, 2022 8:2 4pm [facility] Medical Records Department [address] [place] [address] H&P Exam - Hospitalist 07/22/222009 MR#: [id number] Acct: [id number] Name: ZAYDA DAVIS Rep #:[id number] : 1965 56 From: Patsy Wyman DO PCP: TERESA Mas Status:ADM I NO Location: [place] [id number] HPI - General General Date of Admission: 07/22/22 Date of Service: 07/22/22 Chief Complaint: Somnolence, lethargy HPI Narrative ZAYDA DAVIS, is a 56 F who presents to the emergency room at [facility] after being sent in from her [...] labs will be repeated tomorrow. This may turntable man to be a psychiatric problem, patient's sister states that the patient did go to see a psychiatrist 1 time but refused to go back to see the psychiatrist. [facility] Medical History (Updated 07/22/22 @ 19:16 by Gayla Candelario) Acute renal injury due to circulatory failure Anxiety Asthma Atherosclerosis of coronary artery of coyote valley heart without angina pectoris Bilateral carotid bruits [...] (Auto) 74.3 H, Lymph% (Auto) 11.2 L, Dewitt % (Auto) 8.3, Eos % (Auto) 4.7, [...] Sl. Cloudy, Urine pH 7.0, Ur Specific Ambrose 1.010, Urine Protein 100 H, Urine Glucose [...] on Eliquis up until recently when a latent print examiner took her off the medication due to the fact he could not come up with a reason why she was taking it and the family was not sure why she was on it. She had been placed onit by latent print examiner in [place], according to the sister, her new latent print examiner was going to attempt to contact that latent print examiner to find out why the patient was taking Eliquis. She is no longer on Eliquis according to the sister, I have stopped this medication. Total clinical time spent by myself addressing the patient's medical issues, reviewing all of her data, and collaborating with patient's care team: 75 minutes Charges/Coding Visit Charges Inpatient E&M: 97689 Init Hosp L3 07/22/222030 <Electronically signed by [...] Sutton; Dr. Patsy Wyman, DO ~* Signed [facility] Work Phone: 1([phone]) 912-329904-18-[address] Dunn [facility] July 15, 2022 4:41pm Note Date/Time July 15, 2022 4:4 1pm [facility] Medical Records Department [address] [place] [address] Discharge Summary 07/15/22 1637 MR#: [id number] Acct: [id number] Name: ZAYDA DAVIS Rep #:[id number] : 1965 56 From: Mahamed Penn PCP: TERESA Mas Status:ADM I N Location: [place] [address] Providers Date of Admission: 07/12/22 Date of [...] lobe community-acquired pneumonia-patient was admitted to [facility], she continues on IV Rocephin and Zithromax.? Prelim sputum culture appears normal respiratory khoi.? Urinary antigens are negative.? SARS-CoV-2 and flu antigen are negative. 07/15: Patient is discharged on cefdinir 300 mg every 48 hourly based on creatinine clearance. Advised to take Ceftin 8 after dialysis on days of dialysis. Patient on Thursday and Thursday. Follow-up shop steward. #2 hypoxia secondary to right lower lobe community-acquired pneumonia: Patient was on 2 L of oxygen currently weaned off. 07/15: Patient is weaned off oxygen. 91% on room air. #3 end-stage renal disease on dialysis-patient states her dialysis days are Thursday, , and Thursday, her dialysis physician is in [place], ? Dr. Sanchez, the shop steward is consulted. 07/15: Patient was dialyzed today. [...] (Auto) 69.1, Lymph % (Auto) 13.4 L, Dewitt % (Auto) 8.1, Eos % (Auto) 8.6 [...] NP Consulting Providers: Sanaz Gomez ; Patsy Wyamn Discharge Orders/Prescriptions Prescriptions: New cefdinir 300 mg [...] Month (For pneumonia. PFT) Denisse Sutton NP, IRONING WORKER-C [Primary Care Provider] - Disposition Disposition (needs filled in before D/C Order can be placed): Home Health Service Charges/Coding Visit Charges Inpatient E&M: 85815 Disch Hosp >30min 07/15/22 1641 <Electronically signed by Mahamed Dunn MD> Cosigner Signature (if applicable): CC: TERESA Sutton; Dr. Mahamed Dunn MD~ Signed [facility] Work Phone: 1(729) 522-457804-18-[address] Dunn [facility] July 15, 2022 4:37pm Note Date/Time July 15, 2022 7:0 9am [facility] Medical Records Department [address] [place] [address] Instructions for Home/Discharge Instructions 07/15/22 0909 MR#: [id number] Acct: [id number] Name: ZAYDA DAVIS Rep #:[id number] : 1965 56 From: Mahamed Penn PCP: [...] Mahamed Dunn Primary Care Provider: Denisse Sutton IRONING WORKER Consulting Providers: Sanaz Gomez ; Patsy Wyman [...] 1 Month (For pneumonia. PFT) Denisse Sutton IRONING WORKER, IRONING WORKER-C [Primary Care Provider] - Disposition Disposition (needs filled in before D/C Order can be placed): Home Health Service 07/15/22 1637<Electronically signed by Mahamed Dunn MD>Mahamed Dunn MD CC: IRONING WORKER-C Denisse Sutton; Dr. Patsy Wyman DO; Dr. Sanaz Gomez MD ~ Signed [facility] Work Phone: 1(773) 280-543404-17-[address] Dunn [facility] July 14, 2022 4:55pm Note Date/Time July 14, 2022 4:5 5pm [facility] Medical Records Department [address] [place] [address] Progress Note - Hospitalist 07/14/22 1650 MR#: [id number] Acct: [id number] Name: ZAYDA DAVIS Rep #:[id number] : 1965 56 From: Mahamed Penn PCP: TERESA Mas Status:ADM I N Location: [place] [address] Reason for Visit Reason for Visit: Diagnoses [...] community-acquired pneumonia-patient will be admitted to [facility], she continues on IV Rocephin and Zithromax. Prelim sputum culture appears normal respiratory khoi. Urinary antigens are negative. SARS-CoV-2 and flu antigen are negative. #2 hypoxia secondary to right lower lobe community-acquired pneumonia: Patient was on 2 L of oxygen currently weaned off. #3 end-stage renal disease on dialysis-patient states her dialysis days are Thursday, , and Thursday, her dialysis physician is in [place], Dr. Sanchez, the shop steward is consulted. #4 recent fall with contusions [...] 196 H Charges/Coding Visit Charges Inpatient E&M: 67041 Subs Hosp L2 07/14/22 0635 <Electronically signed by Mahamed Dunn MD> Cosigner Signature (if applicable): CC: ~ Signed [facility] Work Phone: [phone]) 129-305804-16-[address] [facility] July 13, 2022 6:30pm Note Date/Time July 13, 2022 6:3 0pm [facility] Medical Records Department [address] [place] [address] Progress Note - Hospitalist 07/13/22 1827 MR#: [id number] Acct: [id number] Name: ZAYDA DAVIS Rep #:[id number] : 1965 56 From: Patsy Wyman DO PCP: Denisse Sutton, IRONING WORKER-C Status:ADM I N Location: [place] [address] Reason for Visit Reason for Visit: Diagnoses [...] Clarity Cancelled, Urine pH Cancelled, Ur Specific Ambrose Cancelled, U Specif Grav (Refrac) Cancelled, Urine [...] (Auto) 67.9, Lymph % (Auto) 10.4 L, Dewitt % (Auto) 13.9 H, Eos % (Auto) 7.2 H, Baso % (Auto) 0.3, Absolute Neuts (auto) 4.3, Absolute Lymphs (auto) 0.65 L, Nucleated RBC % 0 07/13/22 06:35: POC Glucose 120 H 07/13/22 07:48: POC Glucose 128 H 07/13/22 11:13: POC Glucose 262 H 07/13/22 12:35: Urine Color Yellow, Urine Clarity Sl. Cloudy, Urine pH 7.0, Ur Specific Ambrose 1.010, Urine Protein 100 H, Urine Glucose [...] community-acquired pneumonia-patient will be admitted to [facility], she continues on IV Rocephin and Zithromax day #2, aerosol treatments will be administered, labs will be obtained tomorrow morning #2 hypoxia secondary to right lower lobe community-acquired pneumonia-patient ismildly hypoxic, I will attempt to wean oxygen if possible #3 end-stage renal disease on dialysis-patient states her dialysis days are Thursday, , and Thursday, her dialysis physician is in [place], I called Dr. Sanchez (nephrology) and had [...] 36 minutes Charges/Coding Visit Charges Inpatient E&M: 14851 Subs Hosp L2 07/13/22 1830 <Electronically signed by Patsy Wyman DO> Cosigner Signature (if applicable): CC: ~ Signed [facility] Work Phone: [phone]) 629-405504-16-2023 History and physical note Author Dr. Wyman [facility] July 13, 2022 6:23pm Note Date/Time July 12, 2022 6:0 5pm [facility] Medical Records Department [address] [place] [address] H&P Exam - Hospitalist 07/12/22 1801 MR#: [id number] Acct: [id number] Name: ZAYDA DAVIS Rep #:[id number] : 1965 56 From: Patsy Wyman DO PCP: TERESA Mas Status:ADM I N Location: [address] HPI - General General Date of Admission: 07/12/22 Date of Service: 07/12/22 Chief Complaint: Cough, vomiting, headache HPI Narrative ZAYDA DAVIS, is a 56 F who presents to the emergency room at [facility] for evaluation of vomiting, headache, and [...] however. She does not know who her shop steward is. Patient will be admitted to [facility] 3, she will be given aerosol treatments and IV Zithromax and Rocephin. Patient will be reevaluated tomorrow. I will have nursing contact her sister to see who the patient's shop steward is. [facility] Medical History Acute renal injury due to circulatory failure Anxiety Asthma Atherosclerosis of coronary artery of coy[place] heart without angina pectoris Bilateral carotid bruits [...] Taken Unknown] nystatin 100,000 unit/gram topical powder ([facility]) 1 applic topical BID PRN RASH/YEAST 07/12/22 [...] 76.5 H, Lymph % (Auto) 7.6 L, Dewitt % (Auto) 12.2 H, Eos % (Auto) [...] community-acquired pneumonia-patient will be admitted to [facility], she was placed on IV Rocephin and Zithromax, aerosol treatments will beadministered, labs will be obtained tomorrow morning #2 hypoxia secondary to right lower lobe community-acquired pneumonia-patient ismildly hypoxic, I will attempt to wean oxygen if possible #3 end-stage renal disease on dialysis-patient states her dialysis days are Thursday, , and Thursday, her dialysis physician is in [place], if patienthas to stay past Thursday of [...] 75 minutes Charges/Coding Visit Charges Inpatient E&M: 02358 Init Hosp L3 07/13/22 182 <Electronically signed by Patsy Wyman DO> Cosigner Signature (if applicable): CC: TERESA Sutton; Dr. Patsy Wyman DO~ Signed [facility] Work Phone: [phone]) 727-264704-15-[address] Talley [facility] July 12, 2022 4:55pm Note Date/Time July 12, 2022 1:4 1pm [facility] Medical Records Department [address] [place] [address] Emergency Department Summary 07/12/22 MR#: [id number] Acct: [id number] Name: ZAYDA DAVIS Rep #:[id number] : 1965 56 From: Kamlesh MOORE PCP: TERESA Mas Status:ADM I N Location: [address] HPI <TERESA Connors - Last Filed: [...] on the concrete. Patient was seen at [facility], the patient and the patient's sister were [...] Anxiety Asthma Atherosclerosis of coronary artery of coy[place] heart without angina pectoris Bilateral carotid bruits [...] <TERESA Connors - Last Filed: 07/12/22 15:47> [facility] Lab Data Labs: Laboratory Results - last [...] 76.5 H Lymph % (Auto) 7.6 L Dewitt % (Auto) 12.2 H Eos % (Auto) [...] Talley MD - Last Filed: 07/12/22 16:54> [facility] Narrative Medical decision making narrative: I [...] 76.5 H Lymph % (Auto) 7.6 L Dewitt % (Auto) 12.2 H Eos % (Auto) [...] rhythm rate of 65 with first-degree AVblock. DC interval is 204 ms. Cures duration 86 ms. QT duration 434 ms. There is evidence of low voltage. Lamont is normal.) Discharge Plan Dx/Rx/DC Orders Clinical Impression: Community acquired pneumonia, Hypoxia, Closed head injury, Concussion, History of coronary artery stent placement, Hyperlipidemia, ESRD (end stage renal disease) on dialysis, Hypertension, History of CVA (cerebrovascular accident), Contusion of face, scalp and neck Disposition Disposition: Acute Care Hospital [facility] What to do if you have Problems For any increased pain, shortness of breath, bleeding, nausea or vomiting, chestpain, or any unexpected problems, contact your Primary Care Provider. Call [facility] ([phone]) or report to the closest Emergency Room. Call 911 if necessary. 07/12/22 1547 <Electronically signed by Kamlesh MOORE> Cosigner Signature (if applicable): 07/12/221654 <Electronically signed by Cesar REYES> CC: TERESA Sutton ~ Signed [facility] Work Phone: 1(113) 510-145804-15-[address] Talley [facility] July 12, 2022 4:55pm Note Date/Time July 12, 2022 1:4 1pm [facility] Medical Records Department [address] [place] [address] Emergency Department Summary 07/12/22 MR#: [id number] Acct: [id number] Name: ZAYDA DAVIS Rep #:[id number] : 1965 56 From: Kamlesh MOORE PCP: TERESA Mas Status:ADM I N Location: [address] <TERESA Connors - Last Filed: 07/12/22 [...] on the concrete. Patient was seen at [facility], the patient and the patient's sister were [...] sister she is concerned for an infection. [facility] <TERESA Connors - Last Filed: 07/12/22 15:47> [facility] Medical History Acute renal injury due to circulatory failure Anxiety Asthma Atherosclerosis of coronary artery of [place] heart without angina pectoris Bilateral carotid bruits [...] 76.5 H Lymph % (Auto) 7.6 L Dewitt % (Auto) 12.2 H Eos % (Auto) [...] Talley MD - Last Filed: 07/12/22 16:54> [facility] Narrative Medical decision making narrative: I [...] 76.5 H Lymph % (Auto) 7.6 L Dewitt % (Auto) 12.2 H Eos % (Auto) [...] rhythm rate of 65 with first-degree AVblock. DC interval is 204 ms. Cures duration 86 ms. QT duration 434 ms. There is evidence of low voltage. Lamont is normal.) Discharge Plan Dx/Rx/DC Orders Clinical Impression: Community acquired pneumonia, Hypoxia, Closed head injury, Concussion, History of coronary artery stent placement, Hyperlipidemia, ESRD (end stage renal disease) on dialysis, Hypertension, History of CVA (cerebrovascular accident), Contusion of face, scalp and neck Disposition Disposition: Acute Care Hospital [facility] What to do if you have Problems For any increased pain, shortness of breath, bleeding, nausea or vomiting, chestpain, or any unexpected problems, contact your Primary Care Provider. Call [facility] ([phone]) or report to the closest Emergency Room. Call 911 if necessary. 07/12/22 1547 <Electronically signed by Kamlesh MOORE> Cosigner Signature (if applicable): 07/12/22 1655 <Electronically signed by Cesar REYES> CC: TERESA Sutton ~ Signed [facility] Work Phone: 1(562) 673-232404-11-2023 Hospital Discharge instructions Patient Education 07/08/2022 17:13:08 [...] move any body part near the wound 3817-7495 [employer]. [address] [place] [address]. All rights reserved. This information is not [...] injured area. Frequent bruising for unknown reasons 0720-5763 [employer]. [address] [place] [address]. All rights reserved. This information is not [...] the ears or bruising around the eyes 9767-0834 [employer]. [address] [place] [address], [place] [address]. All rights reserved. This information is not [...] in vomit, stools (black or red color) 7186-9250 [employer]. [address] [place] [address], [place] [address]. All rights reserved. This information is not intended as a substitute for professional medical care. Always follow yourhealthcare professional's instructions. Follow Up Care 07/08/2022 15:15:31 With:DENISSE SUTTON Address: [address] [facility] [place] [address]- [phone] Business (1) When:2-4 days Comments:Follow-up as needed if symptoms or not improving.Limit activity and weightbearing as tolerated.Use ice/cold compresses to injured areas.Topical antibiotic ointment like Neosporin or bacitracin to abrasions.Use Tylenol or Advil for pain as needed.Return to the ED if symptoms worsen. [facility] 04-11-2023 Emergency department Discharge summary Discharge Instructions Thank you for allowing [facility] to assist you with your healthcare needs. [...] symptoms worsen. Where: [address] [facility] [place] [address]- [phone] Business (1) Allergies NKA Medications Please ask [...] move any body part near the wound 8502-8557 [employer]. [address] [place] [address]. All rights reserved. This information is not [...] injured area. Frequent bruising for unknown reasons 7348-5892 [employer]. [address] [place] [address]. All rights reserved. This information is not [...] the ears or bruising around the eyes 2893-3653 [employer]. [address] [place] [address]. All rights reserved. This information is not [...] in vomit, stools (black or red color) 6677-1683 [employer]. [address] [place] [address]. All rights reserved. This information is not intended as a substitute for professional medical care. Always follow yourhealthcare professional's instructions. Additional Information VACCINATE! IT SAVES LIVES! Members of the community who have not yet received the COVID-19 vaccine and would like to receive it can visit one of [facility] vaccine clinics. There are many vaccine clinic locations within the [facility]. For locations and available times, please visit [email or web address]/. It is important to note that some COVID mobile vaccine clinics are held outdoors and may be canceled in rainy or stormy conditions. To learn more about pediatric vaccinations (ages 5-11), we invite you to visit the [facility] webpage. https://www.[facility].org/pages/3083-Fqjgf-Alaesmuenbt-Xldoguanaf-Smmqr-Dfm stions.htmlTo learn more about the COVID-19 vaccine, we invite you to visit the CDC website for a list of frequently asked questions. https://www.cdc.gov/coronavirus/2019-ncov/vaccines/faq.html [facility] Patient Portal Access Instructions: Stay connected with your healthcare team and access your personal medical information anytime with the [facility] Patient Portal. If you would like a full copy of your medical records please contact the [facility] Medical Records Department Thursday through Thursday between 8a.m. and 4:30p.m. Please follow the directions below to access the portal: 1.Access the email account you provided upon registration to the [facility].2.Look for an invitation email from [facility].3.Open the email and access the invitation link: Accept Invitation to [email or web address]4.Fill in the required gilmore to create your account. Sign into [email or web address] with your username and password that you [...] you will allow to register on the [facility] Patient Portal for access to your information. You can also access the [email or web address] Patient Portal on the Open Me toby. Simply click on Health Records under [employer]onic [employer]ust[employer] and then click on the [facility] logo. [...] Call your local pharmacy or go to [email or web address].Tangible [email or web address]/[email or web address] to find one close to you.3.Make use of household items: Use cat litter or old coffee grounds to dispose medications if other options arenot available. Mix your drugs with these household products, seal them in an airtight container andthrow it into the garbage. Call [facility]: [phone] to be sure your drugs can be [...] am aware that I should contactmy doctor. Patient/C.O.D. Audit Clerk Signature: Date/Time: Relationship to Patient: Witness Name/Signature: Date/Time: [facility]04-11-2023 Note ORIGINAL EXAMINATION: CT OF THE HEAD [...] Sign Date: 07/08/2022 4:34:20 PM Ordering Provider: [facility]04-11-2023 Note ORIGINAL EXAMINATION: CT OF THE CERVICAL [...] Sign Date: 07/08/2022 4:10:31 PM Ordering Provider: [address]11-2023 Note ORIGINAL EXAMINATION: THREE XRAY VIEWS [...] Sign Date: 07/08/2022 4:02:26 PM Ordering Provider: [place] [address]-11-2023 Note ORIGINAL EXAMINATION: THREE XRAY VIEWS OF [...] Sign Date: 07/08/2022 4:02:26 PM Ordering Provider: [address]11-2023 Note ORIGINAL EXAMINATION: CT OF THE [...] Sign Date: 07/08/2022 4:10:31 PM Ordering Provider: [facility]04-11-2023 Note ORIGINAL EXAMINATION: CT OF THE HEAD [...] Sign Date: 07/08/2022 4:34:20 PM Ordering Provider: [facility]01-17-2023 SARS-CoV-2 (COVID-19) RNA YANI+probe Ql (Nph)Negative *NA* (04/15/22 4:28 PM)AO Auto Urine [id number] Note ORIGINAL PROCEDURE: IR ANGIOGRAM ARTERIOVENOUS SHUNT [...] the procedure including risks, benefits, and alternatives. [place] protocol was observed. Sterile gowns, masks, hats [...] towards the arterial anastomosis and a 6 Trinidadian vascular sheath was placed. Using an angled [...] Date: 02/25/2022 10:26:58 PM Ordering Provider: [facility]11-29-2022 Hospital Discharge instructions Patient Education 02/25/2022 14:40:37 [...] until you are awake and alert. Take imgc-vea-erzqzup and prescription medicines only as told by [...] 01/04/2014 Document Revised: 02/26/2018 Document Reviewed: 07/05/2016 Exuru! Patient Education 2020 AroundWire. Follow Up Care 02/11/2022 12:49:51 With:Follow up with primary care provider Address:Unknown When: Unknown [facility] 11-29-2022 Summary of episode note Discharge Instructions Thank you for allowing [facility] to assist you with your healthcare needs. The following is importantdischarge information regarding your hospital visit. Your Care Team DENISSE SUTTON What to do next Scheduled Follow-Up Appointments Appointment Type When With Where Contact InformationDB Diabetic Individual Visit (AOH) 03/19/2022 02:30 PM KEYSHAWN Vargas Diet Visits PC OV 05/21/2022 10:00 AM DENISSE KOENIG [facility] [employer] Follow Up Appointments Follow Up with Follow [...] call your physician or if unavailable, go [facility] emergency department. There will be a small [...] until you are awake and alert. Take tqwc-mwv-fynmtpx and prescription medicines only as told by [...] 01/04/2014 Document Revised: 02/26/2018 Document Reviewed: 07/05/2016 Exuru! Patient Education 2020 Exuru! Inc. Additional Information VACCINATE! IT SAVES LIVES! Members of the community who have not yet received the COVID-19 vaccine and would like to receive it can visit one of [facility] vaccine clinics. There are many vaccine clinic locations within the [facility]. For locations and available times, please visit https://[email or web address].[place].gov/. It is important to note that some COVID mobile vaccine clinics are held outdoors and may be canceled in rainy or stormy conditions. To learn more about pediatric vaccinations (ages 5-11), we invite you to visit the [facility] webpage. https://www.akSocial[facility]unchs.org/pages/1529-Fcqfb-Gsavgorgkfd-Izyypvwooy-Fonba-Jcu stions.htmlTo learn more about the COVID-19 vaccine, we invite you to visit the [facility] website for a list of frequently asked questions. https://williamsvilleBungee Labs/assets/Rhehttjo-eov-Cxfxcydr/rqdex-Eiuioon-Vxdomweoxc _Asked-Questions.pdf [facility] Patient Portal Access Instructions: Stay connected with your healthcare team and access your personal medical information anytime with the [facility] Patient [facility].If you would like a full copy of your medical records, please contact the [facility] Medical Records Department, Thursday through Thursday between 8a.m. and 4:30p.m. Please follow the directions below to access the portal: 1.Access the email account you provided upon registration to the [facility].2.Look for an invitation email from [facility].3.Open the email and access the invitation link: Accept Invitation to [facility].Fill in the required gilmore to create your [...] you will allow to register on the [facility] Patient Portal for access to your information. You can also access the [facility] Patient Portal on the Open Me toby. Simply click on Health Records under [...] Call your local pharmacy or go to http://bit.ly/8J4Hy1t to find one close to you.3.Make use of household items: Use cat litter or old coffee grounds to dispose medications if other options arenot available. Mix your drugs with these household products, seal them in an airtight container andthrow it into the garbage. Call [facility]: [phone] to be sure your drugs can be [...] am aware that I should contactmy doctor. Patient/C.O.D. Audit Clerk Signature: Date/Time: Relationship to Patient: Witness Name/Signature: Date/Time: [facility]10 Note ORIGINAL PROCEDURE: IR ANGIOGRAM ARTERIOVENOUS SHUNT [...] the procedure including risks, benefits, and alternatives. [place] protocol was observed. Sterile gowns, masks, hats [...] towards the arterial anastomosis and a 6 Trinidadian vascular sheath was placed. Using an angled [...] Sign Date: 02/25/2022 10:26:58 PM Ordering Provider: [facility]11-29-2022 Note IR Procedure Record Summary Primary Physician: Finalized Date/Time: 02/25/22 14:08:28 Pt. Name: ZAYDA DAVIS /Sex: 1965 Female Med Rec #: [id number] Physician: Financial #: [id number] Pt. Type: S Room/Bed: [facility]/ Admit/Disch: 02/25/22 09:04:47 - Institution: Allergies identified in patient's electronic medical record at time of printing on 02/25/22 Entry 1 Substance NKA Reaction Type Allergy Last Modified By: SAPNA Bowles 07/16/18 17:33:02 Case Attendance- IR Entry 1 Entry 2 Entry 3 Case Attendee HILTON, JAY Galindo MD Hilton, RN Meggan Estrada Role Performed Radiologist Procedure Procedure Nurse Hand Candle Dipper Details Time In 02/25/22 11:39:00 02/25/22 11:39:00 [...] Humphrey RN Deborah E Tech Role Performed Hand Candle Dipper Procedure Nurse Details Time In 02/25/22 11:39:00 [...] Radiology - Action Plan Outcomes Met? Yes Early Childhood SAPNA Canela Completing Procedure Plan Last Modified By: SAPNA Canela 02/25/22 11:21:58 Case Comments Finalized By: SAPNA Canela Document Signatures Signed By: SAPNA Canela 02/25/22 14:08 [facility]ta[facility]eb59-[facility]-6749 Discharge summary Date of Service 02/25/2022 Discharge [...] JAY CANELA MD on 02/25/2022 02:00 PM [facility] HospitalUxztxryh53-54-1559 Evaluation + Plan noteExtracted from: Title:Preprocedure HP [...] 02/12/2022 and can be found in the [facility] Electronic Medical Records ([place]). Beti Ratliff PA-C Interventional Radiology Pager [phone] IR Dept [id number] Available on PO-MO Future Appointments Appointment Date:03/19/2022 02:30:00 PM Scheduled Provider: Location:[facility] Appointment Type:DB Diabetic Individual Visit (AOH) Appointment Date:05/21/2022 10:00:00 AM Scheduled Provider:DENISSE SUTTON Location:[facility] Appointment Type:PC OV Future Scheduled Tests Laboratory* Thyroid Stimulating Hormone 06/12/22 * A1C Hemoglobin 06/12/22 * Complete Blood Count 06/12/22 * Lipid Profile 02/28/21 * Lipid Profile 06/12/22 * Vitamin D Level 02/28/21 * Complete Metabolic Panel 06/12/22 Radiology* MA Mammo Screening Bilateral w/ Julien 09/02/21 * XR Shoulder Minimum 2 Views Left 07/31/21 * XR Shoulder Minimum 2 Views Right 08/15/21 [facility] 11-29-2022 Interventional radiology Consult note INTERVENTIONAL RADIOLOGY POST PROCEDURE NOTE DATE: 02/25/2022 13:57:57 NAME: ZAYDA DAVIS 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 Dulite Machine Bluer: Dr. Patsy Canela Procedure: _Fistulagram with angioplasty [...] contact for any questions or concerns. Patsy Ivye MD Interventional Radiology IR dept: [phone] Available on [employer] Digitally Signed by JAY CANELA MD on 02/25/2022 01:58 PM [facility] HospitalCasqvxhv36-30-1507 History and physical note IR PREPROCEDURE H&P [...] 02/12/2022 and can be found in the [facility] Electronic Medical Records ([place]). Beti Ratliff PA-C Interventional Radiology Pager [phone] IR Dept [id number] Available on [employer] Digitally Signed by BETI RATLIFF PA-C on 02/25/2022 11:19 AM [facility] HospitalXfeujhox94-21-2276 Note ORIGINAL NM MYOCARDIAL SPECT STRESS/REST CLINICAL [...] PM Sign Date: 01/10/2022 4:23:30 PM Ordering Provider:[facility]10-14-2022 Note ORIGINAL NM MYOCARDIAL SPECT STRESS/REST [...] PM Sign Date: 01/10/2022 4:23:30 PM Ordering Provider:[facility]10-14-2022 Note Procedure: Adenosine Cardiac Stress Test, EKG [...] PM Digitally Signed by PAUL PAL MD [facility] HospitalOjsbjkqj98-54-0036 Hospital Discharge instructions Patient Education 12/15/2021 13:38:12 [...] the coronavirus come from? In February 2019, [place] told the World Health Organization (WHO) of several cases of lung disease (human respiratory illness). These cases were linked to an open seafood and livestock market in the city of [facility]. The link to the seafood and livestock [...] and virus naming World Health Organization (WHO): www.who.int/emergencies/diseases/fmycd-uicwyeqzclf-4627/technical-g uidance/oqjsgq-trr-untxhqyaefe-disease-(covid-2019)-xfe-icx-wrhlb-fdrg-cwxltw-ud Who is at risk for complications from [...] relieve his or her symptoms by using ohso-wyt-tupgkhp medicines that treat sneezing, coughing, and runny [...] water are not available, use alcohol-based hand tire beader maker. Avoid touching your face, mouth, nose, or [...] Prevention (CDC): www.cdc.gov/coronavirus/2019-ncov/travelers/index.html World Health Organization (WHO): www.who.int/emergencies/diseases/qamsc-wzqbkogeqqm-3498/travel-advice Know the risks and take action to [...] water are not available, use alcohol-based hand tire beader maker. Cough or sneeze into a tissue, sleeve, [...] in hot, soapy water or use a gelatin dynamite packing operator. Air-dry your dishes. Wash laundry in hot [...] Health Organization (WHO) Information and news updates: www.who.int/emergencies/diseases/vmyth-anacaehpchc-7562 Coronavirus health topic: www.who.int/health-topics/coronavirus Questions and answers on COVID-19: www.who.int/news-room/q-a-detail/k-s-hlydyqpvnvgfz Global tracker: who.[employer] [place] [employer] (AAP) Information for families: www.healthychildren.org/Cameroonian/health-issues/conditions/chest-lungs/Pages /0932-Kmpui-Obtqcmcxwmd.aspx The coronavirus situation is changing rapidly. Check [...] 07/12/2019 Document Revised: 07/12/2019 Document Reviewed: 07/12/2019 ElseLife800 Patient Education 2020 AroundWire. Follow Up Care 12/13/2021 06:34:45 With:DENISSE SUTTON Address: [place] [address]- [phone] When:5 to 7 days Comments:Follow-up with primary care physician as an outpatient. Call to make an appointment. [facility] 09-18-2022 Note Discharge Instructions Thank you for allowing [facility] to assist you with your healthcare needs. [...] PC OV 01/06/2022 03:00 PM DENISSE MCMAHON [facility] Follow Up Appointments Follow Up with DENISSE SUTTON When Within 5 to 7 days Why: Follow-up with primary care physician as an outpatient. Call to make an appointment. Where: [address] [facility] [place] [address]- [phone] The Following Activity and Diet Have Been [...] the coronavirus come from? In February 2019, [place] told the World Health Organization (WHO) of several cases of lung disease (human respiratory illness). These cases were linked to an open seafood and livestock market in the city of [facility]. The link to the seafood and livestock [...] and virus naming World Health Organization (WHO): www.who.int/emergencies/diseases/dlgfo-cmfznjuxjne-4760/technical-g uidance/tytujy-sql-barxijabqzn-disease-(covid-2019)-fnh-rrm-yzplz-gcjh-geqyxs-js Who is at risk for complications from [...] relieve his or her symptoms by using hitu-vek-cghghst medicines that treat sneezing, coughing, and runny [...] water are not available, use alcohol-based hand tire beader maker. Avoid touching your face, mouth, nose, or [...] Prevention (CDC): www.cdc.gov/coronavirus/2019-ncov/travelers/index.html World Health Organization (WHO): www.who.int/emergencies/diseases/jbxqm-hhdsivqxigm-5215/travel-advice Know the risks and take action to [...] water are not available, use alcohol-based hand tire beader maker. Cough or sneeze into a tissue, sleeve, [...] in hot, soapy water or use a gelatin dynamite packing operator. Air-dry your dishes. Wash laundry in hot [...] Health Organization (WHO) Information and news updates: www.who.int/emergencies/diseases/peupj-rmjufmqlqdz-3557 Coronavirus health topic: www.who.int/health-topics/coronavirus Questions and answers on COVID-19: www.who.int/news-room/q-a-detail/f-e-jrzozujciuwuc Global tracker: who.Ev[employer] [place] [employer] Pediatrics (AAP) Information for families: www.healthychildren.org/Cameroonian/health-issues/conditions/chest-lungs/Pages /8012-Bkree-Azmvuriqksd.aspx The coronavirus situation is changing rapidly. Check [...] Document Reviewed: 07/12/2019 Elsevier Patient Education 2020 Exuru! Inc. Additional Information VACCINATE! IT SAVES LIVES! Members of the community who have not yet received the COVID-19 vaccine and would like to receive it can visit one of [facility] vaccine clinics. There are many vaccine clinic locations within the [facility]. For locations and available times, please visit https://gettheshot.coronavirus.[place].gov/. It is important to note that some COVID mobile vaccine clinics are held outdoors and may be canceled in rainy or stormy conditions. To learn more about pediatric vaccinations (ages 5-11), we invite you to visit the [facility] webpage. https://www.LitRess.org/pages/8781-Xnejh-Dgqwkyrmfjc-Fcpjrvrkbc-Mxmtg-Rvv stions.htmlTo learn more about the COVID-19 vaccine, we invite you to visit the [facility] website for a list of frequently asked questions. https://EmergentDetection/assets/Hfatzivm-opr-Hwlcbufx/ilovf-Upwignn-Yprgasqgww _Asked-Questions.pdf [email or web address] Patient Portal Access Instructions: Stay connected with your healthcare team and access your personal medical information anytime with the [email or web address] Patient Portal.If you would like a full copy of your medical records, please contact the [facility] Medical Records Department, Thursday through Thursday between 8a.m. and 4:30p.m. Please follow the directions below to access the portal: 1.Access the email account you provided upon registration to the hospital.2.Look for an invitation email from [facility].3.Open the email and access the invitation link: Accept Invitation to [email or web address]4.Fill in the required gilmore to create your account. Sign into [email or web address] with your username and password that you [...] you will allow to register on the [facility] Patient Portal for access to your information. You can also access the [facility] Patient Portal on the Open Me toby. Simply click on Health Records under [employer]onic [employer] and then click on the [employer] logo. HOW TO SAFELY DISPOSE OF PRESCRIPTION [...] Call your local pharmacy or go to http://BriefMe.Tangible Cryptography/8Z4Dm5v to find one close to you.3.Make use of household items: Use cat litter or old coffee grounds to dispose medications if other options arenot available. Mix your drugs with these household products, seal them in an airtight container andthrow it into the garbage. Call [facility]: [phone] to be sure your drugs can be [...] am aware that I should contactmy doctor. Patient/C.O.D. Audit Clerk Signature: Date/Time: Relationship to Patient: Witness Name/Signature: Date/Time: [facility] HospitalIdjjasmi69-71-1709 Discharge summary Date of Service December 15, [...] an appointment. Where: [address] [facility] [place] [address]- [phone] Discharge Diet Discharge Diet - Ordered -- [...] JUANITA COLLADO MD on 12/15/2021 11:27 PM [facility] HospitalEdhspyyd87-87-0279 Nephrology Progress note Subjective Patient was seen. [...] STEVIE PEREZ MD on 12/15/2021 10:14 AM [facility] HospitalWhuhtbtq91-15-6382 Note Date of Service December 14, 2021 [...] June per her request atth numbers listed [phone] and [phone] but was unable to reach her at either number Digitally Signed by JUANITA COLLADO MD on 12/14/2021 04:45 PM [facility] HospitalTdbbmgyn93-15-1715 Nephrology Progress note Date of Service December 14 2021 Patient seen on hemodialysis on treatment well. Digitally Signed by STEVIE PEREZ MD on 12/14/2021 11:43 AM [facility] HospitalZbwhwlss03-95-4486 Consult note Date of Service December 14, [...] STEVIE PEREZ MD on 12/14/2021 11:41 AM [facility] HospitalDibowsul41-91-6114 Nurse Progress note Student's documentation was reviewed and all medications were verified prior to administration. Digitally Signed by Yaa Miguel RN on 12/13/2021 11:08 PM [facility] HospitalSbhchlqb38-04-8057 Respiratory therapy Hospital Progress note Respiratory Therapy Evaluation Entered On: 12/13/2021 20:01 EDT Performed On: 12/13/2021 20:00 EDT by Yaa Henry SCRAP WORKER Respiratory Therapy Evaluation Respiratory Therapy Evaluation Score : 5 Level of Activity : Ambulatory with assistance Mental Status : Alert, oriented Respiratory Evaluation Triage Score : 3 - (11-15) Freq: QIDRT & Albuterol Q2 RT prn RT Assessment [Frequency/Schedule] : QID and PRN Yaa Henry SCRAP WORKER - 12/13/2021 20:03 EDT Pulmonary Status : Smoking history >20 pack years Surgical Status : No surgeries Chest X-Ray : Clear/not ordered Breath Sounds (RT) : Clear Respiratory Pattern (RT) : Regular RR=12-20 Cough (RT) : Weak, non-productive Yaa Henry SCRAP WORKER - 12/13/2021 20:00 EDT Digitally Signed by Yaa Henry SCRAP WORKER on 12/13/2021 08:03 PM [facility] HospitalVpuevufu99-19-9816 History and physical note Date of Service [...] not get any better she went to [place] [facility] complaining of continued to vomiting, worsening [...] 2: Continue to monitor blood glucose QA [facility] and start the patient on sliding scale, [...] JASWINDER RUEDA MD on 12/13/2021 04:14 PM [facility] HospitalFntundcb00-78-7679 Evaluation + Plan noteExtracted from: Title:History and [...] 2: Continue to monitor blood glucose QA [facility] and start the patient on sliding scale, [...] Appointments Appointment Date:12/25/2021 10:00:00 AM Scheduled Provider: Location:[facility] Appointment Type:DB Diabetic Individual Visit Appointment Date:01/06/2022 03:00:00 PM Scheduled Provider:DENISSE SUTTON Location:[facility] Appointment Type:PC OV Future Scheduled Tests Laboratory* A1C Hemoglobin 02/28/21 * Lipid Profile 02/28/21 * Vitamin D Level 02/28/21 * Complete Metabolic Panel 02/28/21 Radiology* MA Mammo Screening Bilateral w/ Julien 09/02/21 * NM Myocardial Spect Rest/Stress 12/12/21 * XR Shoulder Minimum 2 Views Left 07/31/21 * XR Shoulder Minimum 2 Views Right 08/15/21 [facility] 09-16-2022 Note ORIGINAL EXAMINATION: ONE XRAY [...] Sign Date: 12/13/2021 6:45:06 AM Ordering Provider: [facility]09-16-2022 Note ORIGINAL EXAMINATION: ONE XRAY VIEW [...] Sign Date: 12/13/2021 6:45:06 AM Ordering Provider: [facility]09-16-2022 SARS-CoV-2 (COVID-19) RNA YANI+probe Ql (Nph)Positive *ABN* (12/13/21 4:41 AM)AO Auto Urine [id number] HCoV 229E RNA YANI+non-probe Ql (Nph) Not Detected *NA* (12/11/21 4:15 PM)AH Auto Viro/Sero [id number] Note ORIGINAL HISTORY: Multiple palpable masses in [...] 11/22/2021 1:45:56 PM Ordering Provider: [facility]08-26-2022 Note ORIGINAL HISTORY: Multiple palpable [...] 11/22/2021 1:45:56 PM Ordering Provider: [facility]08-08-2022 Hospital Discharge instructions Patient Education 11/04/2021 18:02:01 [...] If this occurs, you may take an tzry-vxn-pkqniap laxative. Prevention Keep medicines, pesticides, and other household chemicals in their original containers. Clearly patsy all harmful products if a different bottle is used. Keep all substances in a safe place. In the future, if you or someone you know takes something possibly harmful, and you are not sure what to do, call the [place] [employer] [facility]. The phone number is [phone].The phone line is staffed 24 hours a [...] 24 hours Abdominal pain Dizziness or weakness [phone] [place] [address], [place] [address]. All rights reserved. This information is not intended as a substitute for professional medical care. Always follow yourhealthcare professional's instructions. Follow Up Care 11/04/2021 14:39:51 With:DENISSE SUTTON APRN-STITCHER HAND Address: [address] [facility] [place] [address]- [phone] When:2-4 days [facility] 08-08-2022 Note Discharge Instructions Thank you for [...] days Where: [address] [facility] [place] [address]- [phone] Allergies NKA Medications Please ask your primary [...] If this occurs, you may take an eswh-lwq-bdoghji laxative. Prevention Keep medicines, pesticides, and other household chemicals in their original containers. Clearly patsy all harmful products if a different bottle is used. Keep all substances in a safe place. In the future, if you or someone you know takes something possibly harmful, and you are not sure what to do, call the [employer] [facility] [employer] [facility]. The phone number is [phone].The phone line is staffed 24 hours a [...] 24 hours Abdominal pain Dizziness or weakness [phone] [employer]. [address] [place] [address]. All rights reserved. This information is not intended as a substitute for professional medical care. Always follow yourhealthcare professional's instructions. Additional Information VACCINATE! IT SAVES LIVES! Members of the community who have not yet received the COVID-19 vaccine and would like to receive it can visit one of [facility] vaccine clinics. There are many vaccine clinic locations within the [facility]. For locations and available times, please visit [email or web address]. It is important to note that some COVID mobile vaccine clinics are held outdoors and may be canceled in rainy orstormy conditions. To learn more about pediatric vaccinations (ages 5-11), we invite you to visit the [facility] webpage. [email or web address] learn more about the COVID-19 vaccine, we invite you to visit the [facility] website for a list of frequently asked questions. [email or web address] [facility] Patient Portal Access Instructions: Stay connected with your healthcare team and access your personal medical information anytime with the [facility] Patient Portal. If you would like a full copy of your medical records please contact the [facility] Medical Records Department Thursday through Thursday between 8a.m. and 4:30p.m. Please follow the directions below to access the portal: 1.Access the email account you provided upon registration to the [facility].2.Look for an invitation email from [facility].3.Open the email and access the invitation link: [facility] to [facility]4.Fill in the required gilmore to create your [...] you will allow to register on the [facility] Patient Portal for access to your information. You can also access the [facility] Patient Portal on the [employer] toby. Simply click on Health Records under [employer] and then click on the [facility] logo. [...] Call your local pharmacy or go to http://bit.ly/0C4Kt8l to find one close to you.3.Make use of household items: Use cat litter or old coffee grounds to dispose medications if other options arenot available. Mix your drugs with these household products, seal them in an airtight container andthrow it into the garbage. Call [facility]: [phone] to be sure your drugs can be [...] am aware that I should contactmy doctor. Patient/C.O.D. Audit Clerk Signature: Date/Time: Relationship to Patient: Witness Name/Signature: Date/Time: [facility]sey [id number] SARS-CoV-2 (COVID-19) RNA YANI+probe Ql (Nph)Negative (10/10/21 12:00 PM)AO Auto Urine [id number] NoteDiagnoses/Problems Pre-transplant evaluation for kidney transplant (V72.83) [...] ZAYDA DAVIS in the transplant institute at [facility] on Aug as a consultation to assess suitability to undergo a kidney transplant. She is a very bojhsmdt89 year old woman with history of ESRD of type 2 diabetes etiology. She was never evaluated here at [facility] or any other transplant institute for transplant [...] by Problem List Migration; 2012-06-28; Moved to [facility] Feb 23 2013 9:11PM Acid reflux [...] Appointment Date:02/28/2021 09:30:00 AM Scheduled Provider:DENISSE SUTTON Location:[facility] Appointment Type:PC OV Diagnostic Tests Pending * Hepatitis B Core Antibody Total 01/10/21 Future Scheduled Tests Laboratory* Clostridium difficile PCR 10/22/20 * A1C Hemoglobin 02/28/21 * Lipid Profile 02/28/21 * Vitamin D Level 02/28/21 * Complete Metabolic Panel 02/28/21 Radiology* MA Mammo Screening Bilateral w/ Julien 08/29/20 [facility] Evaluation + Plan note Future Appointments Appointment Date:09/10/2021 03:00:00 PM Scheduled Provider: Location:[facility] Appointment Type:DB Diabetic Individual Visit Future Scheduled Tests Laboratory* Clostridium difficile PCR 10/22/20 * A1C Hemoglobin 02/28/21 * Lipid Profile 02/28/21 * Vitamin D Level 02/28/21 * Complete Metabolic Panel 02/28/21 Radiology* MA Mammo Screening Bilateral w/ Julien 08/29/20 * XR Shoulder Minimum 2 Views Left 07/31/21 [facility] Evaluation + Plan note Future Appointments Appointment Date:09/24/2021 02:00:00 PM Scheduled Provider: Location:[facility] Appointment Type:DB Diabetic Individual Visit Appointment Date:10/07/2021 03:30:00 PM Scheduled Provider:DENISSE SUTTON Location:[facility] Appointment Type:PC OV Follow Up Appointment Date:10/10/2021 04:30:00 PM Scheduled Provider: Location:[facility] Appointment Type:CV IRONING WORKER Future Scheduled Tests Laboratory* Clostridium difficile PCR 10/22/20 * A1C Hemoglobin 02/28/21 * Lipid Profile 02/28/21 * Vitamin D Level 02/28/21 * Complete Metabolic Panel 02/28/21 Radiology* MA Mammo Screening Bilateral w/ Julien 09/02/21 * XR Shoulder Minimum 2 Views Left 07/31/21 * XR Shoulder Minimum 2 Views Right 08/15/21 [facility] Evaluation + Plan note Future Appointments Appointment Date:02/28/2021 09:30:00 AM Scheduled Provider:DENISSE SUTTON Location:[facility] Appointment Type:PC OV Future Scheduled Tests Laboratory* Clostridium difficile PCR 10/22/20 * A1C Hemoglobin 02/28/21 * Lipid Profile 02/28/21 * Vitamin D Level 02/28/21 * Complete Metabolic Panel 02/28/21 Radiology* MA Mammo Screening Bilateral w/ Julien 08/29/20 [facility] Evaluation + Plan note Future Appointments Appointment Date:10/29/2021 11:00:00 AM Scheduled Provider: Location:[facility] Appointment Type:CV IRONING WORKER Appointment Date:12/25/2021 10:00:00 AM Scheduled Provider: Location:[facility] Appointment Type:DB Diabetic Individual Visit Appointment Date:01/06/2022 03:00:00 PM Scheduled Provider:DENISSE SUTTON Location:[facility] Appointment Type:PC OV Future Scheduled Tests Laboratory* Clostridium difficile PCR 10/22/20 * A1C Hemoglobin 02/28/21 * Lipid Profile 02/28/21 * Vitamin D Level 02/28/21 * Complete Metabolic Panel 02/28/21 Radiology* MA Mammo Screening Bilateral w/ Juline 09/02/21 * XR Shoulder Minimum 2 Views Left 07/31/21 * XR Shoulder Minimum 2 Views Right 08/15/21 [facility] Evaluation + Plan note Future Appointments Appointment [...] 08/15/21 * US Soft Tissue Mass 11/22/21 [facility] Evaluation + Plan note Future Appointments Appointment [...] XR Shoulder Minimum 2 Views Right 08/15/21 [facility] Evaluation + Plan note Future Appointments Appointment [...] XR Shoulder Minimum 2 Views Right 08/15/21 [facility] Evaluation + Plan note Future Appointments Appointment Date:12/25/2021 10:00:00 AM Scheduled Provider: Location:[facility] Appointment Type:DB Diabetic Individual Visit Appointment Date:01/06/2022 03:00:00 PM Scheduled Provider:DENISSE SUTTON Location:[facility] Appointment Type:PC OV Diagnostic Tests Pending * Urine Culture 12/13/21 Future Scheduled Tests Laboratory* A1C Hemoglobin 02/28/21 * Lipid Profile 02/28/21 * Vitamin D Level 02/28/21 * Complete Metabolic Panel 02/28/21 Radiology* MA Mammo Screening Bilateral w/ Julien 09/02/21 * NM Myocardial Spect Rest/Stress 12/12/21 * XR Shoulder Minimum 2 Views Left 07/31/21 * XR Shoulder Minimum 2 Views Right 08/15/21 [facility] Evaluation + Plan note Future Appointments Appointment Date:01/22/2022 07:00:00 AM Scheduled Provider: Location:[facility] Appointment Type:CV Procedure - Echo (Adult) Appointment [...] XR Shoulder Minimum 2 Views Right 08/15/21 [facility] Evaluation + Plan note Future Appointments [...] XR Shoulder Minimum 2 Views Right 08/15/21 [facility] Evaluation + Plan note Future Appointments Appointment Date:05/21/2022 10:00:00 AM Scheduled Provider:DENISSE SUTTON Location:[facility] Appointment Type:PC OV Appointment Date:07/02/2022 03:30:00 PM Scheduled Provider: Location:[facility] Appointment Type:DB Diabetic Individual Visit (AOH) Future Scheduled Tests Laboratory* Thyroid Stimulating Hormone 06/12/22 * A1C Hemoglobin 06/12/22 * Complete Blood Count 06/12/22 * Lipid Profile 06/12/22 * Complete Metabolic Panel 06/12/22 Radiology* MA Mammo Screening Bilateral w/ Julien 09/02/21 * XR Shoulder Minimum 2 Views Left 07/31/21 * XR Shoulder Minimum 2 Views Right 08/15/21 [facility] Evaluation + Plan note Future Appointments Appointment Date:07/17/2022 02:00:00 PM Scheduled Provider: Location:[facility] Appointment Type:CV OV Appointment Date:09/01/2022 04:00:00 PM Scheduled Provider:DENISSE SUTTON Location:[facility] Appointment Type:PC OV Appointment Date:10/08/2022 08:30:00 AM Scheduled Provider: Location:[facility] Appointment Type:DB Diabetic Individual Visit (AOH) Future Scheduled Tests Laboratory* Lipid Profile 05/28/22 * Vitamin D Level 05/28/22 * Complete Metabolic Panel 05/28/22 * N-Terminal proBNP 05/28/22 Radiology* MA Mammo Screening Bilateral w/ Julien 09/02/21 * XR Shoulder Minimum 2 Views Left 07/31/21 * XR Shoulder Minimum 2 Views Right 08/15/21 [facility] evaluation + Plan note Future Appointments Appointment [...] XR Shoulder Minimum 2 Views Right 08/15/21 [facility] Evaluation + Plan note Future Appointments Appointment [...] XR Shoulder Minimum 2 Views Right 08/15/21 [facility] Evaluation + Plan note Future Appointments [...] MA Mammo Screening Bilateral w/ Julien 09/02/21 [facility] Evaluation + Plan note Future Appointments Appointment Date:12/30/2022 03:00:00 PM Scheduled Provider:DENISSE SUTTON Location:[facility] Appointment Type:PC Wellness Medicare Appointment Date:01/09/2023 03:30:00 PM Scheduled Provider: Location:[facility] Appointment Type:DB Diabetic Individual Visit (AOH) Future Scheduled Tests Laboratory* Lipid Profile 05/28/22 * Vitamin D Level 05/28/22 * Complete Metabolic Panel 05/28/22 [facility] Evaluation + Plan note Future Appointments Appointment Date:02/09/2023 03:30:00 PM Scheduled Provider: Location:[facility] Appointment Type:DB Diabetic Individual Visit (AOH) Appointment Date:02/24/2023 03:30:00 PM Scheduled Provider: Location:[facility] Appointment Type:CV OV Appointment Date:03/10/2023 03:30:00 PM Scheduled Provider: Location:[facility] Appointment Type:MA Mammogram Screening Bilateral w/ Julien Appointment Date:04/22/2023 07:30:00 AM Scheduled Provider:DENISSE SUTTON Location:[facility] Appointment Type:PC OV Future Scheduled Tests Laboratory* A1C Hemoglobin 05/02/23 * Lipid Profile 05/02/23 * Lipid Profile 05/28/22 * Vitamin D Level 05/02/23 * Vitamin D Level 05/28/22 * Complete Metabolic Panel 05/02/23 * Complete Metabolic Panel 05/28/22 Radiology* MA Mammo Screening Bilateral w/ Julien 03/10/23 [facility] Evaluation + Plan note Future Appointments Appointment [...] MA Mammo Screening Bilateral w/ Julien 03/11/23 [facility] Evaluation + Plan note Future Appointments Appointment [...] MA Mammo Screening Bilateral w/ Julien 03/11/23 [facility] Evaluation + Plan note Future Appointments Appointment [...] MA Mammo Screening Bilateral w/ Julien 03/11/23 [facility] Evaluation + Plan note Future Appointments Appointment Date:10/13/2023 03:30:00 PM Scheduled Provider:DENISSE SUTTON [facility] Appointment Type:PC OV Follow Up Appointment Date:10/27/2023 03:15:00 PM Scheduled [facility] Type:CV OV Appointment Date:01/11/2024 03:00:00 PM Scheduled Provider: Location:[facility] Appointment Type:MEDS - Diabetic Individual Visit Future Scheduled Tests Laboratory* A1C Hemoglobin 05/02/23 * Lipid Profile 05/02/23 * Vitamin D Level 04/29/23 * Vitamin D Level 05/02/23 * Complete Metabolic Panel 05/02/23 Radiology* MA Mammo Screening Bilateral w/ Julien 03/11/23 * MA Mammo Screening Bilateral w/ Julien 03/11/23 [facility] Evaluation + Plan note Future Appointments Appointment Date:01/12/2024 03:00:00 PM Scheduled Provider:DENISSE SUTTON Location:[facility] Appointment Type:PC Wellness Medicare Appointment Date:01/12/2024 [...] 03/11/23 * XR Spine Lumbar AP/LAT/FLEX/EXT 10/13/23 [facility] Evaluation + Plan note Future Appointments Appointment Date:02/16/2024 03:00:00 PM Scheduled Provider:FLORY KELLEY MD Location: [facility] Appointment Type: IRONING WORKER Appointment Date:04/13/2024 03:30:00 PM Scheduled Provider:DENISSE SUTTON [...] 03/11/23 * XR Spine Lumbar AP/LAT/FLEX/EXT 10/13/23 [facility] Evaluation + Plan note Future Appointments Appointment Date:04/28/2024 01:30:00 PM Scheduled Provider:RUIZ REGALADO Location: [facility] Appointment Type: IRONING WORKER Appointment Date:05/03/2024 03:45:00 PM Scheduled Provider:EJ CROW [...] 04/13/24 Radiology* XR Spine Lumbar AP/LAT/FLEX/EXT 10/13/23 [facility] evaluation + Plan note Future Appointments Appointment Date:10/13/2024 04:00:00 PM Scheduled Provider: Location:[facility] Appointment Type:MEDS - Diabetic Individual Visit Appointment Date:11/11/2024 03:30:00 PM Scheduled Provider: Location:[facility] Appointment Type:MA Mammogram Screening Bilateral w/ Julien Appointment Date:11/22/2024 04:00:00 PM Scheduled Provider:DENISSE SUTTON Location:[facility] Appointment Type:PC OV Future Scheduled Tests Laboratory* Lipid Profile 04/13/24 * Complete Metabolic Panel 04/13/24 Radiology* MA Mammo Screening Bilateral w/ Julien 11/11/24 * XR Spine Lumbar AP/LAT/FLEX/EXT 10/13/23 [facility] evaluation + Plan note Future Appointments Appointment Date:10/13/2024 04:00:00 PM Scheduled Provider: Location:[facility] Appointment Type:MEDS - Diabetic Individual Visit Appointment Date:10/25/2024 02:45:00 PM Scheduled Provider:EJ CROW Location:[facility] Appointment Type:CV OV Appointment Date:11/11/2024 03:30:00 PM Scheduled Provider: Location:[facility] Appointment Type:MA Mammogram Screening Bilateral w/ Julien Appointment Date:11/22/2024 04:00:00 PM Scheduled Provider:DENISSE SUTTON Location:[facility] Appointment Type:PC OV Future Scheduled Tests Laboratory* Lipid Profile 04/13/24 * Complete Metabolic Panel 04/13/24 Radiology* MA Mammo Screening Bilateral w/ Julien 11/11/24 * XR Spine Lumbar AP/LAT/FLEX/EXT 10/13/23 [facility] evaluation note* Diagnosis Onset Date Resolution Status Closed head injury acute Community acquired pneumonia acute Concussion acute Contusion of face, scalp and neck acute ESRD (end stage renal disease) on dialysis acute History of CVA (cerebrovascular accident) acute Hypoxia acute History of coronary artery stent placement June, chronic Hyperlipidemia chronic Hypertension [facility] Work Phone: Evaluation note* Diagnosis Onset Date Resolution Status Closed head injury acute Concussion acute Contusion of face, scalp and neck acute ESRD (end stage renal disease) on dialysis acute History of CVA (cerebrovascular accident) acute Hypoxia acute History of coronary artery stent placement June, chronic Hyperlipidemia chronic Hypertension chronic Acute alteration in mental status acute [facility] Work Phone: Evaluation note* Diagnosis Onset Date Resolution Status ESRD (end stage renal disease) on dialysis [facility] Work Phone: Evaluation note* Diagnosis Onset Date Resolution Status ESRD (end stage renal disease) on dialysis chronic ESRD (end stage renal disease) on dialysis [facility] Work Phone: Evaluation note* Diagnosis Onset Date Resolution Status ESRD (end stage renal disease) on dialysis chronic ESRD (end stage renal disease) on dialysis chronic ESRD (end stage renal disease) on dialysis chronic ESRD (end stage renal disease) on dialysis [facility] Work Phone: Hospital course Narrative No data available for this section [facility] Hospital Discharge instructions No data available for this section [facility] Note* LARRY BARRERA MD: SIGN, VERIFY Event Display: EKG [ED AOH] - CV Authored Date: [id number] [facility] Note* NATE CROW MD: SIGN, VERIFY Event Display: Cardiac Catheterization -CV Authored Date: [id number] [facility] Progress note No data available for this section [facility] Summary note* MICHAEL Candelario: PERFORM Event Display: Patient Summary Documents Authored Date: [id number] [facility] Summary Purpose Family History No Family History [...] No July 12, 2022 12:59pm Power of Manual Winder No July 12 12:59pm Advance Directive Response Recorded Date/ Time Advance Directives No April 10:11am Living Will No July 12, 2022 5:25pm Power of Manual Winder No July 12 5:25pm Advance Directive Response Recorded Date/ Time Advance Directives No April 10:11am Living Will No July 22, 2022 7:01pm Power of Manual Winder No July 22 7:01pm Advance Directive Response Recorded Date/ Time Advance Directives No January 22, 2023 7:10am Living Will No January 22 7:10am Power of Manual Winder No January 22, 2023 7:10am Advance Directive Response Recorded Date/ Time Advance Directives No January 22, 2023 6:10am Living Will No April 23 8:29am Power of Manual Winder No April 23, 2023 8:29am Advance Directive Response Recorded Date/ Time Advance Directives No January 22, 2023 7:10am Living Will No April 23 9:29am Power of Manual Winder No April 23, 2023 9:29am Chief Complaint [...] T pre op Atherosclerotic heart disease of [place] Reason for Visit ESRD (end stage gerald l disease) on dialysis Chief Complaint CONSULT-AVF PLACEMEN T pre op Atherosclerotic heart disease of [place] N18.6 RIGHT ARM FISTULOGRAM/REGIONAL BLOCK/CATH L [...] section and content) DATE CREATED AUTHOR 06/16/2018 [facility] DATE CREATED AUTHOR AUTHOR'S ORGANIZ ATION 04/08/2019 [facility] DATE CREATED AUTHOR AUTHOR'S ORGANIZ ATION 04/19/2019 [facility] DATE CREATED AUTHOR AUTHOR'S ORGANIZ ATION 08/31/2021 [facility] DATE CREATED AUTHOR AUTHOR'S ORGANIZ ATION 09/28/2021 [facility] DATE CREATED AUTHOR AUTHOR'S ORGANIZ ATION 09/11/2023 [facility] DATE CREATED AUTHOR AUTHOR'S ORGANIZ ATION 11/25/2023 [facility] ([place]) DATE CREATED AUTHOR AUTHOR'S ORGANIZ ATION 08/10/2024 [facility] DATE CREATED AUTHOR AUTHOR'S ORGANIZ ATION 10/07/2024 [facility] Care Team (unrecognized sect ion and content) Team Status: Active Member Role Status Dates Denisse Sutton IRONING WORKER, IRONING WORKER-C Family Provider Active Denisse Sutton IRONING WORKER, IRONING WORKER-C Primary Care Provider Active Team Status: Active Member Role Status Dates Denisse Sutton IRONING WORKER, IRONING WORKER-C Primary Care Provider Active Dr. Samm Talley MD Emergency Provider Active Dr. Patsy Wyman DO Admit Provider, Attending Pro vider Active Team Status: Active Member Role Status Dates Denisse Sutton IRONING WORKER, IRONING WORKER-C Primary Care Provider Active Dr. Samm Talley MD Emergency Provider Active Dr. Patsy Wyman DO Admit Provider, Attending Provider, Other Provider Active Team Status: Active Member Role Status Dates Denisse Sutton IRONING WORKER, IRONING WORKER-C Primary Care Provider Active Dr. Samm Talley MD Emergency Provider Active Dr. Patsy Wyman DO Admit Provider, Attending Provider, Other Provider Active Dr. Sanaz Gomez MD Other Provider Active Team Status: Active Member Role Status Dates Denisse Sutton IRONING WORKER, IRONING WORKER-C Primary Care Provider Active Dr. Samm Talley MD Emergency Provider Active Dr. Patsy Wyman DO Admit Provider, Other Provide r Active Dr. Sanaz Gomez MD Other Provider Active Dr. Mahamed Dunn MD Attending Provider, Other Provi darron Active Team Status: Inactive Member Role Status Dates Denisse Sutton IRONING WORKER, IRONING WORKER-C Primary Care Provider Active Dr. Samm Talley MD Emergency Provider Active Dr. Patsy Wyman DO Admit Provider, Other Provide r Active Dr. Sanaz Gomez MD Other Provider Active Dr. Mahamed Dunn MD Attending Provider Active Team Status: Active Member Role Status Dates Denisse Sutton IRONING WORKER, IRONING WORKER-C Primary Care Provider Active Dr. Patsy Montenegro MD Emergency Provider Active Dr. Patsy Wyman DO Admit Provider, Attending Provider, Other Provider Active Team Status: Active Member Role Status Dates Denisse Sutton IRONING WORKER, IRONING WORKER-C Primary Care Provider Active Dr. Jalen Romano MD Attending Provider Active Team Status: Inactive Member Role Status Dates Denisse Sutton IRONING WORKER, IRONING WORKER-C Primary Care Provider Active Dr. Patsy Montenegro MD Emergency Provider Active Dr. Patsy Wyman DO Admit Provider, Attending Pro vider Active Team Status: Inactive Member Role Status Dates Denisse Sutton IRONING WORKER, IRONING WORKER-C Primary Care Provider, Referri ng Provider Active Dr. Cipriano Trujillo MD Attending Provider Active Team Status: Active Member Role Status Dates Denises Sutton IRONING WORKER, IRONING WORKER-C Primary Care Provider Active Dr. Cipriano Trujillo MD Attending Provider Active Team Status: Inactive Member Role Status Dates Denisse Sutton IRONING WORKER, IRONING WORKER-C Primary Care Provider Active Dr. Cipriano Trujillo MD Attending Provider, Referring Pro vider Active Team Status: Active Member Role Status Dates Denisse Sutton IRONING WORKER, IRONING WORKER-C Primary Care Provider Active Dr. Cipriano Trujillo MD Attending Provider, Referring Provider, Other Provider Active Team Status: Inactive Member Role Status Dates Denisse Sutton IRONING WORKER, IRONING WORKER-C Primary Care Provider, Referri ng Provider Active MARLY Shirley Attending Provider Active Team Status: Active Member Role Status Dates Denisse Sutton IRONING WORKER, IRONING WORKER-C Primary Care Provider Active Dr. Cipriano Trujillo MD Attending Provider, Referring Pro vider Active Team Status: Inactive Member Role Status Dates Denisse Sutton IRONING WORKER, IRONING WORKER-C Primary Care Provider, Referri ng Provider Active Dr. Cipriano Trujillo MD Active MARLY Shirley Attending Provider Active Early Childhood Relationship Specialty Start Date End Date TariDenisse salcedo CNP [address] [place] [id number] PCP - General Family Medicine 09/03/23 Denisse Sutton CNP [address] [place] [address] Referring Family Medicine 07/09/18 Care Team (unrecognized sect ion and content) Care Team Personnel Name: Maria E Fitter Tacker Kelli PT Position: P3 Scheduling - Automatic Teller Machine Servicer Advanced Member Role: Other Name: DENISSE SUTTON APRN-STITCHER HAND Position: P4 Advanced Practice Nurse Med Service: Active Provider Member Role: Primary Care Physician Address: Address: [address] [place] [address] Care Team Related Persons Name: VASQUEZJune Care Team Personnel Name: Josiah Sanderson Clerk Kelli PT Position: P3 Scheduling - Automatic Teller Machine Servicer Advanced Member Role: Other Name: DENISSE SUTTON APRN-NILES Position: P4 Advanced Practice Nurse Med Service: Active Provider Member Role: Primary Care Physician Address: Address: [address] Care Team Related Persons Name: TIFFANIJune Care Team Personnel Name: Josiah Sanderson Clerk Kelli PT Position: P3 Scheduling - Automatic Teller Machine Servicer Advanced Member Role: Other Name: DENISSE SUTTON APRN-STITCHER HAND Position: P4 Advanced Practice Nurse Member Role: Primary Care Physician Address: Address: [address] Care Team Related Persons Name: June Care Team Personnel Name: Maria E Fitter Tacker Kelli PT Position: P3 Scheduling - Automatic Teller Machine Servicer Advanced Member Role: Other Name: DENISSE SUTTON APRN-STITCHER HAND Position: P4 Advanced Practice Nurse Med Service: Active Provider Member Role: Primary Care Physician Address: Address: [address] Care Team Related Persons Name: CONCHITAJune Care Team Personnel Name: Maria E Fitter Tacker Kelli PT Position: P3 Scheduling - Automatic Teller Machine Servicer Advanced Member Role: Other Name: DENISSE SUTTON FURNACE ROASTER-STITCHER HAND Position: P4 Advanced Practice Nurse Med Service: Active Provider Member Role: Primary Care Physician Address: Address: [address] Care Team Related Persons Name: June Care Team Personnel Name: Maria E, Fitter Tacker Kelli PT Position: P3 Scheduling - Automatic Teller Machine Servicer Advanced Member Role: Other Name: DENISSE SUTTON FURNACE ROASTER-STITCHER HAND Position: P4 Advanced Practice Nurse Med Service: Active Provider Member Role: Primary Care Physician Address: Address: [address] Care Team Related Persons Name: June Care Team Personnel Name: Maria E, Fitter Tacker Kelli PT Position: P3 Scheduling - Automatic Teller Machine Servicer Advanced Member Role: Other Name: DENISSE SUTTON FURNACE ROASTER-STITCHER HAND Position: P4 Advanced Practice Nurse Med Service: Active Provider Member Role: Primary Care Physician Address: Address: [address] Care Team Related Persons Name: June Care Team Personnel Name: Maria E, Fitter Tacker Kelli PT Position: P3 Scheduling - Automatic Teller Machine Servicer Advanced Member Role: Other Name: DENISSE SUTTON FURNACE ROASTER-STITCHER HAND Position: P4 Advanced Practice Nurse Med Service: Active Provider Member Role: Primary Care Physician Address: Address: [address] Care Team Related Persons Name: June Care Team Personnel Name: Maria E Fitter Tacker Kelli PT Position: P3 Scheduling - Automatic Teller Machine Servicer Advanced Member Role: Other Name: DENISSE SUTTON FURNACE ROASTER-STITCHER HAND Position: P4 Advanced Practice Nurse Med Service: Active Provider Member Role: Primary Care Physician Address: Address: [address] Care Team Related Persons Name: June Care Team Personnel Name: Maria E, Fitter Tacker Kelli PT Position: P3 Scheduling - Automatic Teller Machine Servicer Advanced Member Role: Other Name: LORSON, DENISSE FURNACE ROASTER-STITCHER HAND Position: P4 Advanced Practice Nurse Member Role: Primary Care Physician Address: Address: [address] Care Team Related Persons Name: VASQEUZJune Care Team Personnel Name: Maria E, Fitter Tacker Kelli PT Position: P3 Scheduling - Automatic Teller Machine Servicer Advanced Member Role: Other Name: DENISSE SUTTON Position: P4 Advanced Practice Nurse Member Role: Primary Care Physician Address: Address: [address] Care Team Related Persons Name: TIFFANIJune Care Team Personnel Name: Maria E, Fitter Tacker Kelli PT Position: P3 Scheduling - Automatic Teller Machine Servicer Advanced Member Role: Other Name: DENISSE SUTTON Position: P4 Advanced Practice Nurse Member Role: Primary Care Physician Address: Address: [address] Care Team Related Persons Name: June Care Team Personnel Name: Maria E, Fitter Tacker Kelli PT Position: P3 Scheduling - Automatic Teller Machine Servicer Advanced Member Role: Other Name: DENISSE SUTTON Position: P4 Advanced Practice Nurse Member Role: Primary Care Physician Address: Address: [place] [address] Care Team Related Persons Name: CONCHITAJune [...] or prosecute any alcohol or drug abuse patient.[facility] Reason for Visit (unrecogniz ed section and content) Specialty Diagnoses / Procedures Referred By Contac t Referred To Contact Diagnoses Chronic kidney disease, unspecified CKD stage Procedures RMVL TAMIKA CVC W/O SUBQ PORT/GENERATOR MAN REMOVAL CATHETER PERMCATH Interventional Radiology [address] [place] [address] Referral ID Status Reason Start Date Expiration Date Visits Re quested Visits Authorized [id number] 1 1 PRN Active and Recently Administ [...] BE BASED ON THE PRIMARY CLINICAL RECORDS. [facility]. provides no warranty or guarantee of the accuracy or completeness of information in this document.
[2024-10-09] MEDS: Azithromycin 500 MG in 0.9% Normal Saline (250mL Bag) 250 ML 255 MG IV (14:42)
[2024-10-09] MEDS: Latanoprost 0.005% 1 Bottle 1 DRP OPHTHALMIC (22:24)
[2024-10-09] MEDS: 0.9% Saline Lock 10 ML Syringe IV (22:25)
[2024-10-09] MEDS: MELATONIN 10 MG TABLET 5 MG PO (22:27)
[2024-10-09] MEDS: Pramipexole Di-HCl 0.125 MG Tablet PO (22:28)
[2024-10-09] MEDS: Heparin Injection (Vial) 5,000 UNIT/ML VIAL 5000 UNIT SC (22:29)
[2024-10-10] VITALS (14 sets, daily range): BP systolic 122–159; BP diastolic 50–74; PULSE 68–81; RESP 18–22; TEMP 36.7–37.1; O2SAT 6–96; BMI 45.7
[2024-10-10 06:15] LABS: Anion Gap 13 (5-15); BUN 46 mg/dL (4-19); BUN/Creat Ratio 7.4 RATIO (10-20); Calcium,Total 8.2 mg/dL (7.6-11.0); Carbon Dioxide 26.0 mmol/L (21.0-32.0); Chloride 97 mmol/L (98-108); Estimated Creatinine Clearance 11.43 ml/min (50-250); Glucose 137 mg/dL (70-99); Potassium 4.9 mmol/L (3.3-5.1)
--- NOTE | 2024-10-10 07:54 | PCM.PN.HOSP ---
Reason for Visit Chief Complaint: Shortness of breath Subjective Subjective Vomited this morning. Objective Data Objective Data Vital Signs: Vital Signs Temp Pulse Resp BP Pulse Ox O2 Del Method O2 Flow Rate 36.8 C 79 22 H 159/74 H 85 Nasal Cannula 2 10/10/24 07:06 10/10/24 07:06 10/10/24 07:06 10/10/24 07:06 10/10/24 07:11 10/10/24 07:11 10/10/24 07:11 Oxygen Flow Rate (L/min) 2 Oxygen Delivery Method Nasal Cannula Weight: 109.8 kg Body Mass Index (BMI) 45.7 Intake & Output: Intake and Output for Last 24 Hours 10/08/24 10/09/24 10/10/24 23:59 23:59 23:59 Intake Total 405 / 505 200 / 200 Balance 405 / 505 200 / 200 Lab / Micro Data 10/10/24 05:20 10/10/24 05:20 Labs: Laboratory Results - last 24 hr 10/09/24 09:18: WBC 6.1, RBC 3.26 L, Hgb 10.4 L, Hct 31.3 L, MCV 96.0, MCH 31.9, MCHC 33.2, RDW Std Deviation 55.8 H, RDW Coeff of Chichi 15.9 H, Plt Count 153, MPV 12.7 H, Immature Gran % (Auto) 0.500, Neut % (Auto) 68.0, Lymph % (Auto) 8.5 L, Gregory % (Auto) 16.2 H, Eos % (Auto) 6.5 H, Baso % (Auto) 0.3, Absolute Neuts (auto) 4.2, Absolute Lymphs (auto) 0.52 L, Nucleated RBC % 0, Sodium 136, Potassium 4.5, Chloride 95 L, Carbon Dioxide 29.0, Anion Gap 12, BUN 34 H, Creatinine 5.18 H, Estim Creat Clear Calc 13.86 L, Est GFR (MDRD) Non-Af 9 L, BUN/Creatinine Ratio 6.6 L, Glucose 104 H, Calcium 8.8 10/09/24 14:41: POC Glucose 94 10/09/24 17:15: POC Glucose 97 10/09/24 20:13: POC Glucose 214 H 10/10/24 01:13: POC Glucose 99 10/10/24 05:20: Sodium 136, Potassium 4.9, Chloride 97 L, Carbon Dioxide 26.0, Anion Gap 13, BUN 46 H, Creatinine 6.13 H, Estim Creat Clear Calc 11.43 L, Est GFR (MDRD) Non-Af 7 L, BUN/Creatinine Ratio 7.4 L, Glucose 137 H, Calcium 8.2 10/10/24 07:04: POC Glucose 138 H Micro: Microbiology 10/09/24 09:15 Mucosa - Nose SARS-CoV-2, Influenza & RSV (PCR) - Final Radiography Diagnostic Testing: Radiology Impression Chest X-Ray 10/09/24 09:50 IMPRESSION: 1. Right perihilar opacities, which may represent pneumonitis/pneumonia. 2. Stable mild cardiomegaly. Reading Location: [facility] Physical Exam Const alert and no apparent distress HEENT head/scalp atraumatic and moist oral mucous membranes Eyes PERRL and EOMs intact bilaterally Neck no lymphadenopathy Resp normal respiratory effort Resp Narrative: Coarse breath sounds bilaterally Cardio regular rate, regular rhythm, S1 normal heart sound and S2 normal heart sound GI normal to inspection, nondistended, normoactive bowel sounds and soft to palpation Neuro Sensorium / Orientation: awake and alert Assessment & Plan Assessment/Plan (1) Pneumonia: PLAN: Suspect pneumococcal Patient received azithromycin and ceftriaxone emergency room. Will continue on the floor. Check urinary antigens for strep and Legionella. Check sputum culture. Pulmonary toilet. Though despite the patient not having a fever nor leukocytosis, her post POCUS and physical exam not consistent with volume overload at this time. Therefore the patient feel has pneumonia. Patient not looking well today. Was felt initially to be an observation stay looks like this will be extending beyond 24 hours so we will change to inpatient status to admission. Will consult nephrology for dialysis as well. PLAN: Plan Chronic conditions End-stage renal disease: On hemodialysis every Thursday, and Thursday. Consult nephrology for dialysis which is to be performed the .. No need for urgent dialysis at this time. Diabetes mellitus type 2: Continue with prandial as well as basal insulin. Add sliding scale insulin. Glaucoma: Continue latanoprost Obesity class III: Complicates care and recovery. VTE prophylaxis with subcu heparin CODE STATUS: Addressed with the patient. Patient wishes to be full code Charges/Coding Visit Charges Inpatient E&M: 45379 Subs Hosp L2
--- NOTE | 2024-10-10 07:56 | CPS ---
nurse turned 02 up to 4l pt was desating with open mouth breathing and possible ISRRAEL.
--- NOTE | 2024-10-10 08:03 | NURSING ---
0600 meds hanging out. Nausea and vomiting.
[2024-10-10] MEDS: Insulin Glargine-YFGN 100 UNIT/ML Pen 20 UNIT SC (09:04)
[2024-10-10] MEDS: Vitamin B Comp W-C Capsule 1 CAP PO (09:05)
[2024-10-10] MEDS: Heparin Injection (Vial) 5,000 UNIT/ML VIAL 5000 UNIT SC ×2 (09:08→22:47)
[2024-10-10] MEDS: Pramipexole Di-HCl 0.125 MG Tablet PO ×2 (09:09→22:48)
[2024-10-10] MEDS: Cholecalciferol (VIT D3) 25 MCG TABLET (1,000 UNITS) 50 MCG PO (09:11)
[2024-10-10] MEDS: Ceftriaxone 2 GM in 0.9% Normal Saline (50mL MB+) 50 ML IV (09:39)
[2024-10-10 11:10] LABS: Hematocrit 31.4 % (37-47); Hemoglobin 10.1 g/dL (12.0-15.0); Mean Corp Hgb Conc 32.2 g/dL (32-36); Mean Corpuscular Volume 98.7 fL (81-99); Platelet Count 154 K/mm3 (150-450); RBC Distribution Width CV 16.2 % (11.6-14.6); RBC Distribution Width SD 58.4 fl (35.1-43.9); Red Blood Count 3.18 M/mm3 (4.2-5.4); White Blood Count 9.4 K/mm3 (4.4-11.0)
[2024-10-10 11:11] LABS: Immature Granulocytes Count 0.040 X10^3/uL (0.0-0.0); Mean Platelet Vol. 13.4 fl (6.2-12.0)
[2024-10-10] MEDS: Azithromycin 500 MG in 0.9% Normal Saline (250mL Bag) 250 ML 255 MG IV (11:11)
[2024-10-10 11:12] LABS: Polychromasia 1+
[2024-10-10] MEDS: 0.9% Normal Saline (250mL Bag) 250 ML 15 ML IV (20:18)
[2024-10-10] MEDS: Latanoprost 0.005% 1 Bottle 1 DRP OPHTHALMIC (22:48)
[2024-10-11] VITALS (24 sets, daily range): BP systolic 114–154; BP diastolic 55–104; PULSE 69–86; RESP 14–18; TEMP 36.7–37.1; O2SAT 87–100; BMI 45.7; BMI 44.6
[2024-10-11] MEDS: Lidocaine/Prilocaine HCl 5 GM Tube TOPICAL (06:02)
[2024-10-11 06:31] LABS: Hematocrit 32.3 % (37-47); Hemoglobin 10.6 g/dL (12.0-15.0); Immature Granulocytes Count 0.060 X10^3/uL (0.0-0.0); Mean Corp Hgb Conc 32.8 g/dL (32-36); Mean Corpuscular Volume 96.1 fL (81-99); Mean Platelet Vol. 12.3 fl (6.2-12.0); NRBC Flagged by Analyzer 0 % (0-5); POSITIVE DIFFERENTIAL YES; Platelet Count 153 K/mm3 (150-450); RBC Distribution Width CV 16.5 % (11.6-14.6); RBC Distribution Width SD 58.4 fl (35.1-43.9); Red Blood Count 3.36 M/mm3 (4.2-5.4); White Blood Count 11.6 K/mm3 (4.4-11.0)
[2024-10-11 06:57] LABS: Anion Gap 17 (5-15); BUN 60 mg/dL (4-19); BUN/Creat Ratio 8.1 RATIO (10-20); Calcium,Total 8.6 mg/dL (7.6-11.0); Carbon Dioxide 22.8 mmol/L (21.0-32.0); Chloride 93 mmol/L (98-108); Estimated Creatinine Clearance 9.54 ml/min (50-250); Glucose 117 mg/dL (70-99); Potassium 5.5 mmol/L (3.3-5.1)
--- NOTE | 2024-10-11 07:34 | PCM.PN.HOSP ---
Reason for Visit Chief Complaint: Shortness of breath Subjective Subjective Feeling well. Still coughing. Objective Data Objective Data Vital Signs: Vital Signs Temp Pulse Resp BP Pulse Ox O2 Del Method O2 Flow Rate 37.1 C 73 18 136/59 H 93 Nasal Cannula 2 10/11/24 03:42 10/11/24 07:17 10/11/24 07:17 10/11/24 03:42 10/11/24 07:16 10/11/24 07:16 10/11/24 07:16 Oxygen Flow Rate (L/min) 2 Oxygen Delivery Method Nasal Cannula Weight: 109.9 kg Body Mass Index (BMI) 45.7 Intake & Output: Intake and Output for Last 24 Hours 10/09/24 10/10/24 10/11/24 23:59 23:59 23:59 Intake Total 405 / 505 505.0 / 565.0 60 / 60 Output Total 300 / 300 Balance 405 / 505 505.0 / 565.0 -240 / -240 Lab / Micro Data 10/11/24 05:57 10/11/24 05:57 Labs: Laboratory Results - last 24 hr 10/10/24 05:20: WBC 9.4, RBC 3.18 L, Hgb 10.1 L, Hct 31.4 L, MCV 98.7, MCH 31.8, MCHC 32.2, RDW Std Deviation 58.4 H, RDW Coeff of Chichi 16.2 H, Plt Count 154, MPV 13.4 H, Immature Gran % (Auto) 0.400, Neut % (Auto) 76.3 H, Lymph % (Auto) 5.3 L, Jerome % (Auto) 11.9 H, Eos % (Auto) 5.8 H, Baso % (Auto) 0.3, Absolute Neuts (auto) 7.2, Absolute Lymphs (auto) 0.50 L, Platelet Estimate A, Polychromasia 1+ 10/10/24 16:14: POC Glucose 158 H 10/10/24 22:42: POC Glucose 140 H 10/11/24 05:57: WBC 11.6 H, RBC 3.36 L, Hgb 10.6 L, Hct 32.3 L, MCV 96.1, MCH 31.5, MCHC 32.8, RDW Std Deviation 58.4 H, RDW Coeff of Chichi 16.5 H, Plt Count 153, MPV 12.3 H, Immature Gran % (Auto) 0.500, Neut % (Auto) 84.9 H, Lymph % (Auto) 3.6 L, Jerome % (Auto) 7.1, Eos % (Auto) 3.6, Baso % (Auto) 0.3, Absolute Neuts (auto) 9.8 H, Absolute Lymphs (auto) 0.42 L, Nucleated RBC % 0, Sodium 133, Potassium 5.5 H, Chloride 93 L, Carbon Dioxide 22.8, Anion Gap 17 H, BUN 60 H, Creatinine 7.37 H, Estim Creat Clear Calc 9.54 L*, Est GFR (MDRD) Non-Af 6 L, BUN/Creatinine Ratio 8.1 L, Glucose 117 H, Calcium 8.6 10/11/24 05:58: POC Glucose 122 H Micro: Microbiology 10/09/24 09:15 Mucosa - Nose SARS-CoV-2, Influenza & RSV (PCR) - Final Physical Exam Const alert and no apparent distress Constitutional Narrative: Seen on dialysis. Patient was dozing off but did not come to was able to answer questions appropriately. HEENT head/scalp atraumatic and moist oral mucous membranes Resp normal respiratory effort, no retractions, no use of accessory muscles and clear to auscultation bilaterally Cardio regular rate, regular rhythm, S1 normal heart sound and S2 normal heart sound GI normal to inspection, nondistended, normoactive bowel sounds, soft to palpation, non-tender and non-distended Extremity normal to inspection, full ROM and no clubbing, cyanosis or edema Neuro Sensorium / Orientation: awake, alert and oriented to person Assessment & Plan Assessment/Plan (1) Pneumonia: PLAN: Suspect pneumococcal Patient received azithromycin and ceftriaxone emergency room. Will continue on the floor. Check urinary antigens for strep and Legionella. Sputum culture so far negative. Pulmonary toilet. Though despite the patient not having a fever nor leukocytosis, her post POCUS and physical exam not consistent with volume overload at this time. Therefore the patient feel has pneumonia. Patient not looking well today. Was felt initially to be an observation stay looks like this will be extending beyond 24 hours so we will change to inpatient status to admission. Will consult nephrology for dialysis as well. Check home patient requires 2 L with rest and 4 L with activity. Will discharge and patient to complete course of antibiotics with Augmentin. PLAN: Plan Chronic conditions End-stage renal disease: On hemodialysis every Thursday, and Thursday. Consult nephrology for dialysis which is to be performed the .. Patient had dialysis today and tolerated it well. Diabetes mellitus type 2: Continue with prandial as well as basal insulin. Add sliding scale insulin. Glaucoma: Continue latanoprost Obesity class III: Complicates care and recovery. VTE prophylaxis with subcu heparin CODE STATUS: Addressed with the patient. Patient wishes to be full code
[2024-10-11] MEDS: PureFlow B 2K Dialysis Soln 1 BAG 6 BAG PF (09:43)
[2024-10-11] MEDS: 0.9% Normal Saline 1,000 ML IV.SOLN. 1000 ML OPERA.SITE (09:43)
[2024-10-11] MEDS: Insulin Glargine-YFGN 100 UNIT/ML Pen 20 UNIT SC (10:32)
--- NOTE | 2024-10-11 11:27 | CASEMGMT ---
SAPNA CM to the pt room for initial assessment. Pt is currently getting dialyzed and is sleeping. Will return at a later time.
--- NOTE | 2024-10-11 11:53 | PCM.DC.SUM ---
Providers Date of Admission: 10/10/24 Primary Care Physician: TERESA Mas Consultations 10/10/24 11:42 Consult: Nephrology Routine Consulting Provider: Ketty Granger Reason for Consult: dialysis for 10/11 EMERGENT Consult: No MD Notified: Yes Date Notified: 10/10/24 Time Notified: 12:59 Method of Notification: office Reason For Visit: PNEUMONIA Diagnosis Discharge Diagnosis (1) Pneumonia: Status: Acute Code(s): J18.9 - Pneumonia, unspecified organism Plan: Suspect pneumococcal Patient received azithromycin and ceftriaxone emergency room. Will continue on the floor. Check urinary antigens for strep and Legionella. Sputum culture so far negative. Pulmonary toilet. Though despite the patient not having a fever nor leukocytosis, her post POCUS and physical exam not consistent with volume overload at this time. Therefore the patient feel has pneumonia. Patient not looking well today. Was felt initially to be an observation stay looks like this will be extending beyond 24 hours so we will change to inpatient status to admission. Will consult nephrology for dialysis as well. Check home patient requires 2 L with rest and 4 L with activity. Will discharge and patient to complete course of antibiotics with Augmentin. Plan Chronic conditions End-stage renal disease: On hemodialysis every Thursday, and Thursday. Consult nephrology for dialysis which is to be performed the .. Patient had dialysis today and tolerated it well. Diabetes mellitus type 2: Continue with prandial as well as basal insulin. Add sliding scale insulin. Glaucoma: Continue latanoprost Obesity class III: Complicates care and recovery. VTE prophylaxis with subcu heparin CODE STATUS: Addressed with the patient. Patient wishes to be full code Medications at Discharge Home Medications aspirin 81 mg chewable tablet 81 mg PO DAILY@0800 [facility] 07/15/18 atorvastatin 80 mg tablet 80 mg PO QHS CHOLESTEROL 08/04/18 torsemide 100 mg tablet 50 mg PO BID diuretic 04/14/19 melatonin 5 mg tablet 5 mg PO HS PRN Sleep 08/03/20 carvedilol 12.5 mg tablet 6.25 mg PO BID blood pressure 09/20/20 acetaminophen 325 mg tablet (Tylenol) 650 mg (2 x 325 mg) PO Q6H PRN PRN Pain 1-10 Or Fever #0 tabs 10/03/20 amlodipine 10 mg tablet 10 mg PO DAILY blood pressure 01/20/21 insulin glargine U-300 conc 300 unit/mL (1.5 mL) subcutaneous pen (Toujeo SoloStar U-300 Insulin) 20 unit subcut BREAKFAST diabetes 03/21/21 gabapentin 300 mg capsule 300 mg PO TID PRN NEUROPATHY 12/10/22 allopurinol 100 mg tablet 100 mg PO DAILY 01/13/23 cholecalciferol (vitamin D3) 50 mcg (2,000 unit) capsule 50 mcg PO DAILY 01/13/23 ezetimibe 10 mg tablet 10 mg PO QHS 01/13/23 vitamin B complex-vitamin C-folic acid 0.8 mg tablet (Nephro-Todd) 1 tab PO DAILY 01/13/23 nystatin 100,000 unit/gram topical powder (Nyamyc) 1 applic topical BID 14 days #1 BOTTLE 11/21/23 hydralazine 100 mg tablet 100 mg PO TID 30 days #0 tabs 12/17/23 insulin lispro 100 unit/mL subcutaneous pen (Humalog KwikPen (U-100) Insulin) See Protocol subcut ACHS #0 mL 12/17/23 blood sugar diagnostic (OneTouch Verio test strips) 07/31/24 blood-glucose meter (OneTouch Verio Flex Meter) 07/31/24 lancets 33 gauge (OneTouch Delica Plus Lancet) 07/31/24 latanoprost 0.005 % eye drops 1 drp ophthalmic (eye) QHS 07/31/24 ondansetron 4 mg disintegrating tablet 4 mg PO Q6H PRN PRN nausea and vomiting 07/31/24 venlafaxine besylate 112.5 mg tablet,extended release 24 hr 112.5 mg PO DAILY 07/31/24 gabapentin 100 mg capsule 100 mg PO TID 10/09/24 ropinirole 0.25 mg tablet 0.25 mg PO BID 10/09/24 guaifenesin 1,200 mg tablet, extended release 12 hr (Mucus Relief ER) 1,200 mg PO BID #0 tabs 10/11/24 Hospital Course Operations None Procedures Dialysis Summary of Care Provided Hospital Course: Greater than 30-minute spent on discharge This is a 50-year-old female that presented with shortness of breath. Did bedside POCUS exam because the findings were more consistent with CHF but patient did not have any evidence of volume overload clinically such as lower extremity edema but also using POCUS she did not have a dilated IVC and actually collapse with inspiration. So her symptoms were felt to be more infectious particular bacterial pneumonia patient was started on antibiotics. Patient has required oxygen did have ambulatory pulse ox where she would require oxygen 2 L with rest and 4 L with activity. Patient be discharged to complete her antibiotics with Augmentin. While she was here, she was day where she had dialysis and did have hemodialysis today. Patient is overall well and be discharged home in stable condition. Weight / BMI Weight Weight: 109.9 kg Body Mass Index (BMI) 45.7 ABG / Lab / Microbiology Data 10/11/24 05:57 10/11/24 05:57 Laboratory: Laboratory Results - last 24 hr 10/10/24 16:14: POC Glucose 158 H 10/10/24 22:42: POC Glucose 140 H 10/11/24 05:57: WBC 11.6 H, RBC 3.36 L, Hgb 10.6 L, Hct 32.3 L, MCV 96.1, MCH 31.5, MCHC 32.8, RDW Std Deviation 58.4 H, RDW Coeff of Chichi 16.5 H, Plt Count 153, MPV 12.3 H, Immature Gran % (Auto) 0.500, Neut % (Auto) 84.9 H, Lymph % (Auto) 3.6 L, Hubbard % (Auto) 7.1, Eos % (Auto) 3.6, Baso % (Auto) 0.3, Absolute Neuts (auto) 9.8 H, Absolute Lymphs (auto) 0.42 L, Nucleated RBC % 0, Sodium 133, Potassium 5.5 H, Chloride 93 L, Carbon Dioxide 22.8, Anion Gap 17 H, BUN 60 H, Creatinine 7.37 H, Estim Creat Clear Calc 9.54 L*, Est GFR (MDRD) Non-Af 6 L, BUN/Creatinine Ratio 8.1 L, Glucose 117 H, Calcium 8.6 10/11/24 05:58: POC Glucose 122 H Microbiology: Microbiology 10/09/24 14:53 Sputum, Expectorated/Coughed Gram Stain - Final 10/09/24 14:53 Sputum, Expectorated/Coughed Respiratory Culture - Final Mixed normal respiratory los. No Streptococcus pneumoniae, beta-hemolytic Streptococcus or Staphylococcus aureus isolated. 10/09/24 09:15 Mucosa - Nose SARS-CoV-2, Influenza & RSV (PCR) - Final D/C Instructions Discharge Activity: Return to Normal Activity Weight Bearing Status: Weight bearing as tolerated Call your doctor if you observe: - (Increasing shortness of breath) DC O2, CPAP, BIPAP Needs Home O2 Discharge instructions: Yes Type of respiratory needs?: Oxygen Oxygen frequency: At rest and With Ambulation Oxygen liters per minute during Ambulation: 4 DC home with Oxygen: Yes Home O2 MD Review: I have reviewed the oxygen testing, and the patient qualifies for home oxygen equipment and portability. The patient is mobile in the home and the community. [facility]: every Thursday, , Thursday. Meaningful Use Info Meaningful Use Meaningful Use Diagnoses (Choose all that apply): None applicable Discharge Plan Admission Admit Date/Time: 10/10/24 11:15 Primary Reason for Your Visit: Pneumonia Attending Provider: Cipriano Baldwin Primary Care Provider: Page Sutton INTERNATIONAL MARKETING INTERN Consulting Providers: Ketty Granger Discharge Orders/Prescriptions Prescriptions: New guaifenesin [Mucus Relief ER] 1,200 mg Tablet Extended Release 12hr 1,200 mg PO BID Qty: 0 0RF Continued torsemide 100 mg tablet 50 mg PO BID Patient Comments: per family, hospital never refilled it. Supposed to be taking it. melatonin 5 mg tablet 5 mg PO HS PRN (Reason: Sleep) gabapentin 300 mg capsule 300 mg PO TID PRN (Reason: NEUROPATHY) aspirin 81 MG tablet,chewable 81 mg PO DAILY@0800 atorvastatin 80 MG tablet 80 mg PO QHS carvedilol 12.5 mg tablet 6.25 mg PO BID acetaminophen [Tylenol] 325 mg Tablet 650 mg PO Q6H PRN PRN (Reason: Pain 1-10 Or Fever) Qty: 0 0RF amlodipine 10 MG tablet 10 mg PO DAILY insulin glargine U-300 conc [Toujeo SoloStar U-300 Insulin] 300 unit/mL (1.5 mL) insulin pen 20 unit SC BREAKFAST allopurinol 100 mg tablet 100 mg PO DAILY cholecalciferol (vitamin D3) 50 mcg (2,000 unit) capsule 50 mcg PO DAILY Nephro-Todd 0.8 mg tablet 1 tab PO DAILY ezetimibe 10 mg tablet 10 mg PO QHS insulin lispro [Humalog KwikPen Insulin] 100 unit/mL Insulin Pen See Protocol subcut ACHS Qty: 0 0RF Protocol: 4. Sliding Scale Insulin High-Med Dosing Condition: 150-199 mg/dl = 2 units Condition: 200-259 mg/dl = 4 units Condition: 260-324 mg/dl = 6 units Condition: 325-374 mg/dl = 8 units Condition: 375-409 mg/dl = 10 units Condition: 410-449 mg/dl = 11 units Condition: Greater than 449 call physician Protocol Text: Suggested for: - Patients on Total Daily Insulin Dose of 56-80 units - Patient who are known to be insulin resistant or septic HIGH MEDIUM DOSING ALGORITHM Patient Comments: 5 units at lunch and dinner hydralazine 100 mg tablet 100 mg PO TID 30 Days Qty: 0 0RF Rx Instructions: Hold for SBP less than 130 mmHg ropinirole 0.25 mg tablet 0.25 mg PO BID gabapentin 100 mg capsule 100 mg PO TID nystatin [Nyamyc] 100,000 unit/gram Powder 1 applic topical BID 14 Days Qty: 1 0RF Protocol: *Topical Application Instructions APPLICATION INSTRUCTIONS: apply to groin, abdominal folds, under breasts Rx Instructions: Gently cleans skin folds w/ water/soap, pat dry, apply topical nystatin powder until complete resolution of fold redness/odor. latanoprost 0.005 % drops 1 drp ophthalmic (eye) QHS (DME) blood-glucose meter [OneTouch Verio Flex meter] Misc MISCELLANEOUS Patient Comments: [NO ORIGINAL SIG] (DME) OneTouch Verio test strips Strip 1 strip MISCELLANEOUS 4X/DAY (DME) lancets [OneTouch Delica Plus Lancet] 33 gauge misc 1 lancet MISCELLANEOUS 4X/DAY ondansetron 4 mg tablet,disintegrating 4 mg PO Q6H PRN PRN (Reason: nausea and vomiting) venlafaxine besylate 112.5 mg tablet extended release 24hr 112.5 mg PO DAILY Referrals / Follow Up: Page Sutton INTERNATIONAL MARKETING INTERN, INTERNATIONAL MARKETING INTERN-C [Primary Care Provider] - Within 2 Weeks Disposition Disposition (needs filled in before D/C Order can be placed): Home, Self Care Charges/Coding Visit Charges Inpatient E&M: 79935 Disch Hosp >30min
[2024-10-11] MEDS: Ceftriaxone 2 GM in 0.9% Normal Saline (50mL MB+) 50 ML IV (12:59)
[2024-10-11] MEDS: 0.9% Normal Saline (250mL Bag) 250 ML 15 ML IV (12:59)
--- NOTE | 2024-10-11 13:10 | CASEMGMT ---
RN CM Assessment Face to Face with patient for initial transition planning/care coordination assessment. RN CM introduced self and role at [facility], pt voices understanding. Pt is A&Ox4 and is resting comfortably in bed and is calm. Care providers, pharmacy, and demographics verified. Admitting dx: Pneumonia PCP: Page Sutton Specialists: Dr. Mc (Nephro). Pt also sees a produce runner but is unsure of the name or location Preferred Pharmacy: [facility]. Noted that the hospitalist's progress notes and DC summary report the pt is to dc with Augmentin for the pneumonia. Noted there is not rx ordered. Hospitalist notified and placed an order for the ATB to [facility]. MS3 RN CM calling [facility] for meds to bed prior to DC. Insurance: [facility], [employer]. Community Resources: Pt has a CM through [facility], Casie Arevalo @ [phone]. . TC to Casie who states that the pt is still active with [facility] and [facility]. DC Summary faxed to the CM as requested. Prescription Benefit: Yes LNOK: Stephy Roberts (sister), Madi Jain (Daughter) Living Arrangements: Pt lives with her sister and sister's SO in a mobile home with a ramp to enter ADLs/IADLs: Pt states that she is able to get up & ambulate independently but that her sister is her primary caregiver. Pt states that she showers herself but her sister watches her to be safe. Pt reports that her sister manages her medications. Pt goes to [facility] Transportation:Sister, Bisi. Denies concerns. TC to the pt's sister to notify of DC plan. Pt sister states that she can come to [facility] around 1430 today and can bring in the pt's portable oxygen. DME: Home oxygen through [employer]. Pt qualifies for an updated o2 Rx, see notes. Per the pt and pt's sister, pt has a concentrator, multiple portable tanks, and a pulse ox. Pt reports that she has a BGM with sufficient supplies as well as a rollator, FWW, shower chair, and grab bars. HHC/SNF: Hx @ [facility] in [place]. Pt denies skilled HH hx HD: Pt states that she goes to [facility] in [place] [facility] @ 0530 and that [facility] provides this transportation. TC to the HD center and notified them that the pt was dialyzed today and the plan is to discharge home today and that she will be there . Pt?s goal: Home Plan: Home with family support, updated o2 rx, resumption of services through [facility] [place], and OP HD. Pt states that she feels safe with this plan and denies the need for skilled HHC, SNF, or OP Tx. Pt denies further questions or concerns at this time. Report given to MSDavina ALEJO CM. Riya Dowell RN, CM
--- NOTE | 2024-10-11 13:14 | CASEMGMT ---
Addendum entered by Marine Matos 10/11/24 13:57: TC to [facility] to request med to be delivered to the room. Updated pt nurse that pt dtr will be coming between 2:30-3, she should be bringing portable oxygen tank and pt will have atb being delivered to room prior to dc. Original Note: Pt requires increase on home oxygen rx, updated rx sent to [facility] via [facility] at this time.
[2024-10-11] MEDS: Azithromycin 500 MG in 0.9% Normal Saline (250mL Bag) 250 ML 255 MG IV (13:42)
[2024-10-11] MEDS: Vitamin B Comp W-C Capsule 1 CAP PO (13:48)
[2024-10-11] MEDS: Cholecalciferol (VIT D3) 25 MCG TABLET (1,000 UNITS) 50 MCG PO (13:48)
[2024-10-11] MEDS: Pramipexole Di-HCl 0.125 MG Tablet PO (13:49)
--- NOTE | 2024-10-11 15:13 | PCM.CONS.R ---
Assessment & Plan Assessment/Plan (1) ESRD (end stage renal disease): PLAN: on HD TTS schedule. HD today. see on HD. see orders. breathing looks ok. not much edema. HPI Consult Data Date of Consult: 10/11/24 HPI Narrative Reason for Consultation: ESRD HPI Narrative: ZAYDA ANTOINE, is a 58 F who presents to hospital with dyspnea. nephrology on consult for ESRD. on HD TTS schedule. being treated for pneumonia. seen on HD today. mostly sleepy. did not offer any complaints. [facility] Medical History (Updated 10/11/24 @ 15:[address] Ketty Granger MD) ESRD (end stage renal disease) Anemia of chronic disease History of diabetes mellitus Chronic kidney disease with end stage renal disease on dialysis due to type 2 diabetes mellitus Hypoxia ESRD (end stage renal disease) on dialysis Dependence on renal dialysis Easy bruising Dietary restriction History of edema Hx of cardiovascular stress test Hx of echocardiogram Cardiology follow-up encounter TIA (transient ischemic attack) Acute alteration in mental status Community acquired pneumonia ESRD (end stage renal disease) on dialysis Wears glasses Insulin dependent diabetes mellitus Low iron Former smoker Cardiology follow-up encounter Chronic heart failure with preserved ejection fraction (HFpEF) History of non-ST elevation myocardial infarction (NSTEMI) (01/20/21) Debility COVID-19 (01/20/21) Inability to walk Generalized weakness Non-STEMI (non-ST elevated myocardial infarction) (01/20/21) Ischemic cerebrovascular accident (CVA) (04/2018) Respiratory insufficiency Hypoxia Anxiety Bilateral carotid bruits Hyperlipidemia Malignant hypertension Headache Type 2 diabetes mellitus without complication Essential hypertension Atherosclerosis of coronary artery of [place] heart without angina pectoris GERD (gastroesophageal reflux disease) Depression History of renal calculi History of cholelithiasis Morbid obesity Acute renal injury due to circulatory failure Home Medications ?Medication ?Instructions ?Recorded ?Last Taken ?Type aspirin 81 mg chewable tablet 81 mg PO DAILY@0800 [facility] 07/15/18 04/26/23 History atorvastatin 80 mg tablet 80 mg PO QHS CHOLESTEROL 08/04/18 04/26/23 History torsemide 100 mg tablet 50 mg PO BID diuretic 04/14/19 04/26/23 History melatonin 5 mg tablet 5 mg PO HS PRN Sleep 08/03/20 01/19/21 History carvedilol 12.5 mg tablet 6.25 mg PO BID blood pressure 09/20/20 04/27/23 History acetaminophen 325 mg tablet 650 mg (2 x 325 mg) PO Q6H PRN PRN 10/03/20 Unknown Rx (Tylenol) Pain 1-10 Or Fever #0 tabs amlodipine 10 mg tablet 10 mg PO DAILY blood pressure 01/20/21 04/27/23 History insulin glargine U-300 conc 300 20 unit subcut BREAKFAST diabetes 03/21/21 04/26/23 History unit/mL (1.5 mL) subcutaneous pen ([employer] SoloStar U-300 Insulin) gabapentin 300 mg capsule 300 mg PO TID PRN NEUROPATHY 12/10/22 Unknown History allopurinol 100 mg tablet 100 mg PO DAILY 01/13/23 04/26/23 History cholecalciferol (vitamin D3) 50 50 mcg PO DAILY 01/13/23 04/26/23 History mcg (2,000 unit) capsule ezetimibe 10 mg tablet 10 mg PO QHS 01/13/23 04/26/23 History vitamin B complex-vitamin C-folic 1 tab PO DAILY 01/13/23 04/26/23 History acid 0.8 mg tablet (Nephro-Todd) nystatin 100,000 unit/gram topical 1 applic topical BID 14 days #1 11/21/23 Unknown Rx powder ([facility]) BOTTLE hydralazine 100 mg tablet 100 mg PO TID 30 days #0 tabs 12/17/23 Unknown Rx insulin lispro 100 unit/mL See Protocol subcut ACHS #0 mL 12/17/23 Unknown Rx subcutaneous pen (Humalog KwikPen (U-100) Insulin) blood sugar diagnostic (OneTouch 07/31/24 Unknown History Verio test strips) blood-glucose meter (OneTouch 07/31/24 Unknown History Verio Flex Meter) lancets 33 gauge (OneTouch Delica 07/31/24 Unknown History Plus Lancet) latanoprost 0.005 % eye drops 1 drp ophthalmic (eye) QHS 07/31/24 Unknown History ondansetron 4 mg disintegrating 4 mg PO Q6H PRN PRN nausea and 07/31/24 Unknown History tablet vomiting venlafaxine besylate 112.5 mg 112.5 mg PO DAILY 07/31/24 Unknown History tablet,extended release 24 hr gabapentin 100 mg capsule 100 mg PO TID 10/09/24 Unknown History ropinirole 0.25 mg tablet 0.25 mg PO BID 10/09/24 Unknown History amoxicillin 500 mg-potassium 1 tab PO BID #10 tabs 10/11/24 Unknown Rx clavulanate 125 mg tablet (Augmentin) guaifenesin 1,200 mg tablet, 1,200 mg PO BID #0 tabs 10/11/24 Unknown Rx extended release 12 hr (Mucus Relief ER) Allergy/AdvReac Type Severity Reaction Status Date / Time No Known Allergies Allergy Verified 07/31/24 15:08 Family History Mother Diabetes Heart disease Hypertension Father Hypertension Heart disease Brother Heart disease Hypertension Sister Heart disease Diabetes Surgical History History of surgery History of arteriovenostomy for renal dialysis (~03/2021) History of History of appendectomy History of cholecystectomy History of coronary artery stent placement (06/2016) History of left heart catheterization (05/27/21) Social History household members: family Smoking Status: Former smoker alcohol intake: never substance use type: does not use ROS ROS Narrative negative except above Physical Exam Narrative Alert awake oriented x 3 no obvious distress no pallor no icterus no JVD s1s2 no murmurs lungs clear abdomen soft no organomegaly no edema no cyanosis Lab / Micro Data 10/11/24 05:57 10/11/24 05:57 Labs: Laboratory Results - last 24 hr 10/10/24 16:14: POC Glucose 158 H 10/10/24 22:42: POC Glucose 140 H 10/11/24 05:57: WBC 11.6 H, RBC 3.36 L, Hgb 10.6 L, Hct 32.3 L, MCV 96.1, MCH 31.5, MCHC 32.8, RDW Std Deviation 58.4 H, RDW Coeff of [place] 16.5 H, Plt Count 153, MPV 12.3 H, Immature Gran % (Auto) 0.500, Neut % (Auto) 84.9 H, Lymph % (Auto) 3.6 L, [place] % (Auto) 7.1, Eos % (Auto) 3.6, Baso % (Auto) 0.3, Absolute Neuts (auto) 9.8 H, Absolute Lymphs (auto) 0.42 L, Nucleated RBC % 0, Sodium 133, Potassium 5.5 H, Chloride 93 L, Carbon Dioxide 22.8, Anion Gap 17 H, BUN 60 H, Creatinine 7.37 H, Estim Creat Clear Calc 9.54 L*, Est GFR (MDRD) Non-Af 6 L, BUN/Creatinine Ratio 8.1 L, Glucose 117 H, Calcium 8.6 10/11/24 05:58: POC Glucose 122 H 10/11/24 11:26: POC Glucose 106 Micro: Microbiology 10/09/24 14:53 Sputum, Expectorated/Coughed Gram Stain - Final 10/09/24 14:53 Sputum, Expectorated/Coughed Respiratory Culture - Final Mixed normal respiratory los. No Streptococcus pneumoniae, beta-hemolytic Streptococcus or Staphylococcus aureus isolated.
== END 2024-10-11 14:57 | disposition home or self-care (01) | DRG 193 ==
LOC: ED 12:42 → MS3 13:39
PROVIDERS: Emergency Provider Emergency Medicine; PCP Nurse Practitioner Family
DX: J13 Pneumonia due to Streptococcus pneumoniae (principal); N18.6 End stage renal disease; I13.2 Hypertensive heart and chronic kidney disease with heart failure and with stage 5 chronic kidney disease, or end stage renal disease; I50.32 Chronic diastolic (congestive) heart failure; Z68.42 Body mass index [BMI] 45.0-49.9, adult; D63.1 Anemia in chronic kidney disease; E11.22 Type 2 diabetes mellitus with diabetic chronic kidney disease; Z79.4 Long term (current) use of insulin; E78.5 Hyperlipidemia, unspecified; I25.10 Atherosclerotic heart disease of native coronary artery without angina pectoris; E66.813 Obesity, class 3; R09.02 Hypoxemia; H40.9 Unspecified glaucoma; Z79.82 Long term (current) use of aspirin; Z79.899 Other long term (current) drug therapy; Z87.891 Personal history of nicotine dependence; Z95.5 Presence of coronary angioplasty implant and graft
CPT/HCPCS: 36415; 71046; 80048; 82962; 85025; 87070; 87205; 87631; 90937; 93005; 94640; 99285; A4216; G0257; J0696

== ENCOUNTER 2025-01-22 17:21 | Emergency (ER) | payer MEDICARE, MEDICAID, SELFPAY ==
[2025-01-22] VITALS (16 sets, daily range): BP systolic 160–196; BP diastolic 77–126; PULSE 74–84; RESP 12–25; TEMP 36.5–37; O2SAT 94–100; BMI 48.2
--- NOTE | 2025-01-22 18:06 | EX.ED.DYSGE1 ---
HPI History of Present Illness Chief Complaint: Nausea/Vomiting Narrative Narrative: Patient is a 59-year-old female presenting to the emergency department for nausea, vomiting and thoracic back pain. Patient has a past medical history of end-stage renal disease on dialysis Thursday, hypoxia likely from COPD on 4 L NC, TIA, insulin-dependent diabetes, NSTEMI, hypertension. Patient has a history of CVA/TBI and is cared for by her sister who helps provide history over the phone. Sister states that the patient goes to adult daycare and the end of last week another patient had very similar symptoms. Patient states that she ate scrambled eggs and coffee this morning and then went to [employer] and when she came back had multiple episodes of nonbloody nonbilious vomiting. Patient is also complaining of lower abdominal pain. Denies fever, chills, chest pain, shortness of breath worse than baseline. States she has not had a bowel movement for multiple days. Denies any dysuria or hematuria. States that she is also having right sided back pain. Denies any trauma to her back [facility] Medical History ESRD (end stage renal disease) Anemia of chronic disease History of diabetes mellitus Chronic kidney disease with end stage renal disease on dialysis due to type 2 diabetes mellitus Hypoxia ESRD (end stage renal disease) on dialysis Dependence on renal dialysis Easy bruising Dietary restriction History of edema Hx of cardiovascular stress test Hx of echocardiogram Cardiology follow-up encounter TIA (transient ischemic attack) Acute alteration in mental status Community acquired pneumonia ESRD (end stage renal disease) on dialysis Wears glasses Insulin dependent diabetes mellitus Low iron Former smoker Cardiology follow-up encounter Chronic heart failure with preserved ejection fraction (HFpEF) History of non-ST elevation myocardial infarction (NSTEMI) (01/20/21) Debility COVID-19 (01/20/21) Inability to walk Generalized weakness Non-STEMI (non-ST elevated myocardial infarction) (01/20/21) Ischemic cerebrovascular accident (CVA) (04/2018) Respiratory insufficiency Hypoxia Anxiety Bilateral carotid bruits Hyperlipidemia Malignant hypertension Headache Type 2 diabetes mellitus without complication Essential hypertension Atherosclerosis of coronary artery of [place] heart without angina pectoris GERD (gastroesophageal reflux disease) Depression History of renal calculi History of cholelithiasis Morbid obesity Acute renal injury due to circulatory failure Home Medications Medication Instructions Recorded Last Taken Type aspirin 81 mg chewable tablet 81 mg PO DAILY@0800 HEART HE[facility] 07/15/18 04/26/23 History atorvastatin 80 mg tablet 80 mg PO QHS CHOLESTEROL 08/04/18 04/26/23 History torsemide 100 mg tablet 50 mg PO BID diuretic 04/14/19 04/26/23 History melatonin 5 mg tablet 5 mg PO HS PRN Sleep 08/03/20 01/19/21 History acetaminophen 325 mg tablet 650 mg (2 x 325 mg) PO Q6H PRN PRN 10/03/20 Unknown Rx (Tylenol) Pain 1-10 Or Fever #0 tabs amlodipine 10 mg tablet 10 mg PO DAILY blood pressure 01/20/21 04/27/23 History insulin glargine U-300 conc 300 20 unit subcut BREAKFAST diabetes 03/21/21 04/26/23 History unit/mL (1.5 mL) subcutaneous pen (Toujeo SoloStar U-300 Insulin) gabapentin 300 mg capsule 300 mg PO TID PRN NEUROPATHY 12/10/22 Unknown History allopurinol 100 mg tablet 100 mg PO DAILY 01/13/23 04/26/23 History cholecalciferol (vitamin D3) 50 50 mcg PO DAILY 01/13/23 04/26/23 History mcg (2,000 unit) capsule ezetimibe 10 mg tablet 10 mg PO QHS 01/13/23 04/26/23 History vitamin B complex-vitamin C-folic 1 tab PO DAILY 01/13/23 04/26/23 History acid 0.8 mg tablet (Nephro-Todd) nystatin 100,000 unit/gram topical 1 applic topical BID 14 days #1 11/21/23 Unknown Rx powder ([facility]) BOTTLE hydralazine 100 mg tablet 100 mg PO TID 30 days #0 tabs 12/17/23 Unknown Rx insulin lispro 100 unit/mL See Protocol subcut ACHS #0 mL 12/17/23 Unknown Rx subcutaneous pen (Humalog KwikPen (U-100) Insulin) blood sugar diagnostic ([facility] 07/31/24 Unknown History Verio test strips) blood-glucose meter ([facility] 07/31/24 Unknown History Verio Flex Meter) l[facility]ets [facility] 07/31/24 Unknown History Plus Lancet) latanoprost 0.005 % eye drops 1 drp ophthalmic (eye) QHS 07/31/24 Unknown History venlafaxine besylate 112.5 mg 112.5 mg PO DAILY 07/31/24 Unknown History tablet,extended release 24 hr gabapentin 100 mg capsule 100 mg PO TID 10/09/24 Unknown History ropinirole 0.25 mg tablet 0.25 mg PO BID 10/09/24 Unknown History guaifenesin 1,200 mg tablet, 1,200 mg PO BID #0 tabs 10/11/24 Unknown Rx extended release 12 hr (Mucus Relief ER) carvedilol 3.125 mg tablet 3.125 mg PO BID 01/22/25 Unknown History fluticasone furoate 100 1 ea inhalation DAILY 01/22/25 Unknown History mcg-vilanterol 25 mcg/dose inhalation powder (Breo Ellipta) lidocaine-prilocaine 2.5 %-2.5 % topical 01/22/25 Unknown History topical cream ondansetron 4 mg disintegrating 4 mg PO Q8H PRN PRN Nausea #10 tabs 01/22/25 Unknown Rx tablet Allergy/AdvReac Type Severity Reaction Status Date / Time No Known Allergies Allergy Verified 07/31/24 15:08 Family History Mother Diabetes Heart disease Hypertension Father Hypertension Heart disease Brother Heart disease Hypertension Sister Heart disease Diabetes Surgical History History of surgery History of arteriovenostomy for renal dialysis (~03/2021) History of History of appendectomy History of cholecystectomy History of coronary artery stent placement (06/2016) History of left heart catheterization (05/27/21) Social History household members: family Smoking Status: Former smoker alcohol intake: never substance use type: does not use ROS ROS ED ROS Narrative see HPI EXAM Physical Exam Narrative Exam Narrative: Vital signs: Reviewed General: Alert and orientedx3. No acute distress HEENT: Head is normocephalic and atraumatic, sinuses nontender, pupils equal round and reactive. Nares are patent. Oropharynx and throat exams normal. Neck: Supple without lymphadenopathy nontender Cardiovascular: Regular rate and rhythm, no murmurs. No rubs or gallops. Normal S1 and S2. 2+ and symmetric radial and DP/PT pulses. Respiratory: Clear to auscultation bilaterally. No wheezes, rales, rhonchi. On chronic 4 L nasal cannula Abdominal: Soft and tender to palpation in the periumbilical, suprapubic and left lower quadrant. Normal bowel sounds. No guarding or rebound. Nonsurgical abdomen. No CVA tenderness to palpation. Back: There is right thoracic paraspinal tenderness to palpation. No midline thoracic or lumbar spinal tenderness to palpation. No step-offs or deformities. No erythema or rashes on the back. Extremities: Fistula in LUE, palpable thrill. No tenderness. No bruising. Normal range of motion. Normal sensation. Skin: No rash or redness. The rest of the physical exam is unremarkable Const Vital Signs: 01/22/25 17:21 01/22/25 19:21 01/22/25 20:24 Temperature 97.7 F L Temperature Source Oral Pulse Rate 74 79 Respiratory Rate 22 H 18 Blood Pressure 185/81 H 177/126 H Blood Pressure Mean 115 143 Pulse Ox 100 100 Oxygen Delivery Method Nasal Cannula Oxygen Flow Rate (L/min) 4 01/22/25 20:30 01/22/25 20:39 01/22/25 20:45 Temperature Temperature Source Pulse Rate 79 79 78 Respiratory Rate 25 H 21 H 16 Blood Pressure 196/77 H Blood Pressure Mean 116 Pulse Ox 100 100 100 Oxygen Delivery Method Nasal Cannula Oxygen Flow Rate (L/min) 4 01/22/25 20:50 01/22/25 20:57 01/22/25 21:00 Temperature Temperature Source Pulse Rate 77 79 79 Respiratory Rate 20 H 16 20 H Blood Pressure 160/88 H Blood Pressure Mean 112 Pulse Ox 99 100 100 Oxygen Delivery Method Nasal Cannula Oxygen Flow Rate (L/min) 4 01/22/25 21:01 01/22/25 21:15 01/22/25 21:30 Temperature Temperature Source Pulse Rate 78 79 78 Respiratory Rate 21 H 19 H 19 H Blood Pressure 177/80 H Blood Pressure Mean 112 Pulse Ox 100 100 Oxygen Delivery Method Oxygen Flow Rate (L/min) 01/22/25 21:45 01/22/25 22:00 01/22/25 23:00 Temperature Temperature Source Pulse Rate 84 79 81 Respiratory Rate 19 H 16 14 Blood Pressure 196/78 H Blood Pressure Mean 117 Pulse Ox 94 99 100 Oxygen Delivery Method Nasal Cannula Oxygen Flow Rate (L/min) 2 MDM MDM MDM Narrative Medical decision making narrative: Patient is a 59-year-old female presenting to the emergency department for nausea, vomiting, abdominal pain that started this morning. Patient was seen and examined. Vitals are stable. Patient resting bed comfortably no acute distress. Patient is on her baseline 4 L nasal cannula. Differential includes but is not limited to: Gastroenteritis, atypical ACS, colitis, diverticulitis, UTI, obstruction, nephrolithiasis, pyelonephritis less likely aortic pathology, PE given no hypoxia, no SOB worse than baseline, pulses symmetric throughout, pain is not ripping tearing, no cp, no upper abd pain. Pain in upper back started after vomiting and is reproducible on palpation on the paraspinal thoracic region. Less likely ischemic colitis given no out of proportion pain. Patient was already given 4 mg of Zofran by EMS. Fluid bolus and Reglan given here. Labs and CT imaging of the abdomen ordered. CBC with no leukocytosis and a normal hemoglobin. CMP with baseline CKD, very mildly elevated potassium of 5.3. Anion gap of 22 may be due to to her dialysis or dehydration. Bicarb of 21. Lactate and VBG added on. VBG with no acidosis, no evidence of DKA. Lactate within normal limits. Very mild transaminitis with an AST of 43 ALT of 36, normal alk phos and total bilirubin. Troponins are mildly elevated with no high-sensitivity baseline to compare to however suspect this is due to her CKD. No significant delta change from first 2 reflexes and downtrending from 63-59 and stable at 59. EKG shows sinus rhythm with 1st degree AV block, LVH, no ST elevation or depression. No dysrhythmia. After fluid bolus BMP repeated and anion gap has improved to 17. Urinalysis with no evidence of infection. CT abd shows no bowel obstruction or active inflammatory process. Mild left hydroureteronephrosis, without an obstructing stone. Questionable focal wall thickening at the posterior left aspect of the urinary bladder. Recommend follow-up and/or cystoscopy for direct visual inspection. Ultrasound of the bladder may be helpful. Nonspecific small hypodense lesions in the inferior aspect of the spleen, most likely benign cysts versus hemangiomas. Patient updated on the findings. Likely dehydration from a viral gastroenteritis. Able to tolerate p.o. here. Will prescribe Zofran for home and educated on staying hydrated at home. Updated on the incidental findings of the focal wall thickening of the urinary bladder and provided copies of the read as well for follow-up. Patient discharged from the Emergency Department. I do not feel that the patient's evaluation reveals any acute reason for admission at this time. I instructed them to either follow-up with their primary care physician or promptly return to the Emergency Department for reevaluation should symptoms worsen or new symptoms develop. I explained what symptoms would indicate the need to return to the emergency department. Shared decision making was used. The patient voiced understanding of the treatment plan and is agreeable with it. Clinical impression: Nausea and vomiting abdominal pain dehydration History & Record Review Discussion w/independent historian: Patient and Family Additional record(s) reviewed:: Prior labs Lab Data Attestation: I reviewed the patient's lab results. Labs: Laboratory Results - last 24 hr 01/22/25 01/22/25 01/22/25 17:40 20:20 20:58 WBC 9.2 RBC 4.05 L Hgb 12.9 Hct 38.6 MCV 95.3 MCH 31.9 MCHC 33.4 RDW Std Deviation 58.4 H RDW Coeff of [place] 16.7 H Plt Count 151 MPV 12.7 H Immature Gran % (Auto) 0.400 Neut % (Auto) 87.9 H Lymph % (Auto) 5.5 L [place] % (Auto) 5.7 Eos % (Auto) 0.3 Baso % (Auto) 0.2 Absolute Neuts (auto) 8.0 H Absolute Lymphs (auto) 0.50 L Nucleated RBC % 0 Sodium 135 Potassium 5.3 H Chloride 91 L Carbon Dioxide 21.2 Anion Gap 22 H BUN 51 H Creatinine 5.60 H Estim Creat Clear Calc 12.80 L Est GFR (MDRD) Non-Af 8 L BUN/Creatinine Ratio 9.1 L Glucose 249 H Lactic Acid 1.4 Calcium 9.3 Total Bilirubin 1.02 AST 43 H ALT 36 H Alkaline Phosphatase 85 Troponin T High Sens 63 H* Troponin T Hi Sens 2 Hr 59 H* Troponin T Hi Sens 4Hr Total Protein 7.5 Albumin 4.3 Globulin 3.3 Albumin/Globulin Ratio 1.3 Lipase 42 Urine Color Urine Clarity Urine pH Ur Specific [place] Urine Protein Urine Glucose (UA) Urine Ketones Urine Occult Blood Urine Nitrite Urine Bilirubin Urine Urobilinogen Ur Leukocyte Esterase Urine RBC Urine WBC Ur Squamous Epith Cells Urine Bacteria Hyaline Casts Urine Mucus 01/22/25 01/22/25 01/22/25 21:42 21:45 22:35 WBC RBC Hgb Hct MCV MCH MCHC RDW Std Deviation RDW Coeff of [place] Plt Count MPV Immature Gran % (Auto) Neut % (Auto) Lymph % (Auto) [place] % (Auto) Eos % (Auto) Baso % (Auto) Absolute Neuts (auto) Absolute Lymphs (auto) Nucleated RBC % Sodium 134 Potassium 5.3 H Chloride 93 L Carbon Dioxide 24.1 Anion Gap 17 H BUN 53 H Creatinine 5.80 H Estim Creat Clear Calc 12.36 L Est GFR (MDRD) Non-Af 8 L BUN/Creatinine Ratio 9.1 L Glucose 264 H Lactic Acid Calcium 8.5 Total Bilirubin AST ALT Alkaline Phosphatase Troponin T High Sens Troponin T Hi Sens 2 Hr Troponin T Hi Sens 4Hr 59 H* Total Protein Albumin Globulin Albumin/Globulin Ratio Lipase Urine Color Yellow Urine Clarity Clear Urine pH 8.0 Ur Specific [place] 1.010 Urine Protein 100 H Urine Glucose (UA) 100 H Urine Ketones 15 H Urine Occult Blood 25 H Urine Nitrite Negative Urine Bilirubin Negative Urine Urobilinogen Normal Ur Leukocyte Esterase Negative Urine RBC 0-5 SEEN Urine WBC 0-5 SEEN Ur Squamous Epith Cells 5-10 SEEN Urine Bacteria 1+ Hyaline Casts 0-5 SEEN Urine Mucus 0 SEEN ABG Data ABG results: ABG 01/22/25 21:02 Specimen Type SARAH Sample Site Not entered VBG pH 7.48 H VBG pO2 50 H VBG HCO3 25 VBG Total CO2 26 VBG O2 Sat (Calc) 88 H VBG Base Excess 1 POC Mix VBG pCO2 Pt Tmp 33.3 L O2 Delivery Device Not entered Radiography Diagnostic Testing: Clinical Impression(s) from Imaging Studies Abdomen/Pelvis CT 01/22/25 19:54 IMPRESSION: 1. No bowel obstruction or active inflammatory process. 2. Mild left hydroureteronephrosis, without an obstructing stone. Questionable focal wall thickening at the posterior left aspect of the urinary bladder. Recommend follow-up and/or cystoscopy for direct visual inspection. Ultrasound of the bladder may be helpful. 3. Nonspecific small hypodense lesions in the inferior aspect of the spleen, most likely benign cysts versus hemangiomas. Reading Location: [facility] Discharge Plan Triage Chief Complaint: Nausea/Vomiting ED Provider: Patti Flower Dx/Rx/DC Orders Clinical Impression: Acute dehydration, Nausea & vomiting, Abdominal pain Instructions: Abdominal Pain, Dehydration, ED Viral Syndrome (Adult) Prescriptions: New ondansetron 4 mg tablet,disintegrating 4 mg PO Q8H PRN PRN (Reason: Nausea) Qty: 10 0RF No Action torsemide 100 mg tablet 50 mg PO BID melatonin 5 mg tablet 5 mg PO HS PRN (Reason: Sleep) gabapentin 300 mg capsule 300 mg PO TID PRN (Reason: NEUROPATHY) aspirin 81 MG tablet,chewable 81 mg PO DAILY@0800 atorvastatin 80 MG tablet 80 mg PO QHS acetaminophen [Tylenol] 325 mg Tablet 650 mg PO Q6H PRN PRN (Reason: Pain 1-10 Or Fever) Qty: 0 0RF amlodipine 10 MG tablet 10 mg PO DAILY insulin glargine U-300 conc [Toujeo SoloStar U-300 Insulin] 300 unit/mL (1.5 mL) insulin pen 20 unit SC BREAKFAST allopurinol 100 mg tablet 100 mg PO DAILY cholecalciferol (vitamin D3) 50 mcg (2,000 unit) capsule 50 mcg PO DAILY Nephro-Todd 0.8 mg tablet 1 tab PO DAILY ezetimibe 10 mg tablet 10 mg PO QHS insulin lispro [Humalog KwikPen Insulin] 100 unit/mL Insulin Pen See Protocol subcut ACHS Qty: 0 0RF Protocol: 4. Sliding Scale Insulin High-Med Dosing Condition: 150-199 mg/dl = 2 units Condition: 200-259 mg/dl = 4 units Condition: 260-324 mg/dl = 6 units Condition: 325-374 mg/dl = 8 units Condition: 375-409 mg/dl = 10 units Condition: 410-449 mg/dl = 11 units Condition: Greater than 449 call physician Protocol Text: Suggested for: - Patients on Total Daily Insulin Dose of 56-80 units - Patient who are known to be insulin resistant or septic HIGH MEDIUM DOSING ALGORITHM Patient Comments: 5 units at lunch and dinner hydralazine 100 mg tablet 100 mg PO TID 30 Days Qty: 0 0RF Rx Instructions: Hold for SBP less than 130 mmHg ropinirole 0.25 mg tablet 0.25 mg PO BID gabapentin 100 mg capsule 100 mg PO TID guaifenesin [Mucus Relief ER] 1,200 mg Tablet Extended Release 12hr 1,200 mg PO BID Qty: 0 0RF carvedilol 3.125 mg tablet 3.125 mg PO BID lidocaine-prilocaine 2.5-2.5 % cream topical fluticasone furoate-vilanterol [Breo Ellipta] 100-25 mcg/dose blister with device 1 ea inhalation DAILY nystatin [Nyamyc] 100,000 unit/gram Powder 1 applic topical BID 14 Days Qty: 1 0RF Protocol: *Topical Application Instructions APPLICATION INSTRUCTIONS: apply to groin, abdominal folds, under breasts Rx Instructions: Gently cleans skin folds w/ water/soap, pat dry, apply topical nystatin powder until complete resolution of fold redness/odor. latanoprost 0.005 % drops 1 drp ophthalmic (eye) QHS (DME) blood-glucose meter [OneTouch Verio Flex meter] Misc MISCELLANEOUS Patient Comments: [NO ORIGINAL SIG] (DME) OneTouch Verio test strips Strip 1 strip MISCELLANEOUS 4X/DAY (DME) lancets [OneTouch Delica Plus Lancet] 33 gauge misc 1 lancet MISCELLANEOUS 4X/DAY venlafaxine besylate 112.5 mg tablet extended release 24hr 112.5 mg PO DAILY Primary Care Provider: Page Sutton NP Referrals: Page Sutton NP, NEUROPSYCHOLOGY DIRECTOR-C [Primary Care Provider, Family Practice] - As soon as possible Activity Restrictions/Additional Instructions: Take the Zofran every 8 hours as needed for nausea and vomiting. Drink lots of fluids at home. If you develop any worsening abdominal pain, nausea, vomiting that is not controlled with the Zofran you need to return to the emergency department immediately. You need to have a follow up with your primary care doctor for a repeat CT of your abdomen or a cystoscopy for possible focal wall thickening of the bladder read as below: Mild left hydroureteronephrosis, without an obstructing stone. Questionable focal wall thickening at the posterior left aspect of the urinary bladder. Recommend follow-up and/or cystoscopy for direct visual inspection. Ultrasound of the bladder may be helpful. Your evaluation in the Emergency Department did not reveal any acute reason for admission. However, I want to emphasize that you may be early in the course of a disease process or illness even if it is not present. For this reason you should follow-up within 24 hours for reevaluation with either your primary care physician or if necessary back here in the Emergency Department. You should return to the Emergency Department immediately if your symptoms worsen or new symptoms develop. Print Language: Nepali Disposition Disposition: Home, Self Care Discharge Date/Time: 01/22/25 23:20
--- OUTSIDE RECORDS SUMMARY | 2025-01-22 18:32 | XMS RPT_ITS | CCD ---
Author Organization [facility] Care Team Providers Care Apartment Maintenance Worker Name Role Phone JON WORTHINGTON Referring Unavailable JON WORTHINGTON Referring Unavailable LESLEY BLANDON-NILES, DENISSE Primary Care Physician Maria Luisa Bridges Unavailable Unavailable Maria E PT, Kelli Unavailable Unavailable LESLEY CUSTOMER PROGRAM MANAGER-NILES, DENISSE Primary Care Physician Macarena Smith Unavailable Unavailable Unavailable Lesley INSPECTOR SALVAGE, INSPECTOR SALVAGE-C Denisse Primary Care Provider Dr. Samm Talley Emergency Provider Dr. Patsy Wyman Admit Provider Dr. Patsy Wyman Attending Provider Dr. Patsy Wyman Other Provider Dr. Sanaz Gomez Other Provider Dr. Mahamed Dunn Attending Provider Dr. Mahamed Dunn Other Provider Dr. Patsy Montenegro Emergency Provider Dr. Jalen Romano Attending Provider [phone] Lesley INSPECTOR SALVAGE, INSPECTOR SALVAGE-C Denisse Primary Care Provider Lesley INSPECTOR SALVAGE, INSPECTOR SALVAGE-C Denisse Referring Provider [phone] Dr. Cipriano Trujillo Attending Provider [phone] Cipriano Trujillo Referring Provider [phone] Cipriano Trujillo Other Provider Lesley INSPECTOR SALVAGE, INSPECTOR SALVAGE-C Salix Primary Care Provider Dr. Cipriano Trujillo Attending Provider [phone] Cipriano Trujillo Referring Provider [phone] Dr. Cipriano Trujillo Other Provider Lesley INSPECTOR SALVAGE, INSPECTOR SALVAGE-C [place] Referring Provider [phone] MARLY Quinonez Attending Provider [phone] Lesley INSPECTOR SALVAGE, INSPECTOR SALVAGE-C [place] Primary Care Provider Lesley INSPECTOR SALVAGE, INSPECTOR SALVAGE-C [place] Referring Provider [phone] Dr. Cipriano Trujillo Attending Provider [phone] Cipriano Trujillo Referring Provider [phone] Dr. Cipriano Trujillo Other Provider MARLY Quinonez Attending Provider [phone] [place] SAP PORTAL DEVELOPER, [place] Unavailable [phone] [place] SAP PORTAL DEVELOPER, [facility] Care Provider TIMOTHY REYES, JEREMY PEREZ Admitting Unava ilable TIMOTHY REYES, JEREMY PEREZ Attending Unava ilable MACARENA SMITH [facility] Care Unavailable LORSON 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, VALIER Attending Unavail able LORSON 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, [facility] Unavail able EVELINA CURTIS MD Attending Unavail able LORSON 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, [facility] Care Unavail able DR FREDDIE BURRIS DO Attending Unavailable LORSON 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, [facility] Care Unavail able LORSON 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, VALIER Attending Unavail able LORSON 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, [facility] Care Unavail able LORSON 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, [facility] Care Unavail able LORSON 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, VALIER Attending Unavail able LORSON 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, VALIER Attending Unavail able LORSON 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, [facility] Unavail able LORSON 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, [facility] Care Unavail able JUDY REYES, LEE Estrada Attending Unavailpineda CROW MD, DR SULLIVAN Attending Unavailable LORSON 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, [facility] Care Unavail able MIGNON REYES, DR SULLIVAN Attending Unavailable LORSON 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, [facility] Primary Care Unavail able LORSON 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, [facility] Primary Care Unavail able LORSON 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, VALIER Attending Unavail able LORSON 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, VALIER Attending Unavail able LORSON 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, [facility] Care Unavail able Lorson INSPECTOR SALVAGE-C, [place] Primary Care Provider Les REYES, Dr. Chavez Emergency Provider Bridget REYES, Dr. Georgina Ivey Admit Provider Bridget REYES, Dr. Georgina Ivey Other Provider Bárbara REYES, Dr. Hdez Other Provider Tim BRAVO, Dr. Amaro Attending Provider Collin REYES, Dr. Eboni Calderon Other Provider Collin REYES, Dr. Eboni Calderon Attending Provider Tim BRAVO, Dr. Amaro Other Provider Dr. Cipriano Lundberg DO Emergency Provider Denny BRAVO, Dr. Cota Admit Provider Dr. Cipriano Baldwin DO Attending Provider Dr. Cipriano Baldwin DO Referring Provider Dr. Cipriano Lundberg DO Emergency Provider Dr. Cipriano Baldwin DO Attending Provider Denny BRAVO, Dr. Cota Admit Provider Dr. Cipriano Baldwin DO Referring Provider Denny BRAVO, Dr. Cota Other Provider Georgina Gill Admitting Unavailable Georgina Gill Consulting Unavailable Lesley INSPECTOR SALVAGE, [facility] Unavailable Sondra Dumont Attending Unavailable Ketty Granger Consulting Unavailable Eboni Polanco Consulting Unavailable Sondra Dumont Consulting Unavailable Mahamed Dunn Admitting Unavailable Bobby Irizarry Attending Unavailable Lorson INSPECTOR SALVAGE, [facility] Unavailable Fabian Perez Consulting Unavailable [facility], Mahamed Referring Unavailable Stevens, Tapan Consulting Unavailable Bobby Irizarry Consulting Unavailable Mignon Deleon Consulting Unavailable Matheis, Edmonica Consulting Unavailable Elizabeth, Javier Consulting Unavailable Habtegebriel, Georgette Consulting Unavailab le Dand, Chepe Consulting Unavailable Cruz, Jesús Consulting Unavailable Steven, Jaz Consulting Unavailable Aljundi, Lamia Consulting Unavailable Dahlia, Julio Consulting Unavailable Irukulla, Darren Consulting Unavailable Paulina, Shahbaz Consulting Unavailable Kiana Gomez Consulting Unavailable Soy Reveles Consulting Unavailable Mairo, Darryl Consulting Unavailable Sridevi Colbert Consulting Unavailable Caty DUGGAN, Fidelina Consulting Unavailable Bárbara, Jayaprakas Consulting Unavailable [facility], Mahamed Consulting Unavailable [facility], Mahamed Attending Unavailable Tarison INSPECTOR SALVAGE, [facility] Unavailable Bárbara, Jayaprakas Consulting Unavailable Cipriano Baldwin Referring Unavailable Cipriano Baldwin Attending Unavailable Cipriano Baldwin Admitting Unavailable [facility], Mahamed Admitting Unavailable [facility], Mahamed Attending Unavailable Tarison INSPECTOR SALVAGE, [facility] Unavailable Bárbara, Jayaprakas Consulting Unavailable Georgina Gill Attending Unavailable Lorson INSPECTOR SALVAGE, [facility] Unavailable Faiban Perez Consulting Unavailable [facility], Mahamed Referring Unavailable [facility], Mahamed Admitting Unavailable Stevens, Tapan Consulting Unavailable Bobby Irizarry Consulting Unavailable Mignon Deleon Consulting Unavailable Nawaf Walsh Consulting Unavailable Elizabeth, Javier Consulting Unavailable Habtegebriel, Georgette Consulting Unavailab le Dand, Chepe Consulting Unavailable Cruz, Jesús Consulting Unavailable Steven, Jaz Consulting Unavailable Aljundi, Lamia Consulting Unavailable Dahlia, Julio Consulting Unavailable Irukulla, Darren Consulting Unavailable Paulina, Shahbaz Consulting Unavailable Mario, Darryl Consulting Unavailable Sridevi Colbert Consulting Unavailable Shannan Rooney Consulting Unavailable [facility], Mahamed Consulting Unavailable Tarison INSPECTOR SALVAGE, [facility] Care Unavailable Michelet Harper Attending Unavailable Lorson INSPECTOR SALVAGE, [facility] Care Unavailable Cipriano Baldwin Attending Unavailable Lorson INSPECTOR SALVAGE, [facility] Care Unavailable Jopperi, Cipriano Referring Unavailable Hudson Baldwinic Attending Unavailable Jopperi, Cipriano Consulting Unavailable Jopperi, Cipriano Admitting Unavailable Lorson INSPECTOR SALVAGE, [facility] Unavailable Jopperi, Cipriano Admitting Unavailable Jopperi, Cipriano Referring Unavailable Jopperi, Cipriano Attending Unavailable Bárbara, Jayaprakas Consulting Unavailable Jopperi, Cipriano Consulting Unavailable Radha Henderson Attending Unavailable Georigna Gill Attending Unavailable Eboni Polancoa Attending Unavailable Lorson INSPECTOR SALVAGE, [facility] Unavailable Samm Talley Attending Unavailable Georgina Gill L Admitting Unavailable WhiteGeorgina L Consulting Unavailable Lorson INSPECTOR SALVAGE, [facility] Unavailable Sondra Dumont Attending Unavailable Bárbara, Jayaprakas Consulting Unavailable Koram, Eboni Ymuiko Consulting Unavailable Shaun, Mahamed Attending Unavailable Lorson INSPECTOR SALVAGE, [facility] Unavailable Fabian Perez Consulting Unavailable Shaun, Mahamed Referring Unavailable Shaun, Mahamed Admitting Unavailable Tapan Stevens Consulting Unavailable Bobby Irizarry Consulting Unavailable Mignon Deleon Consulting Unavailable Nawaf Walsh Consulting Unavailable Javier Johnson Consulting Unavailable Georgette Mcmillan Consulting Unavailab Chepe Junior Consulting Unavailable Jesús Cruz Consulting Unavailable Jaz Harris Consulting Unavailable Gus Espinoza Consulting Unavailable Julio Villagomez Consulting Unavailable Darren Francisco Consulting Unavailable Shahbaz Gallardo Consulting Unavailable Darryl Martin Consulting Unavailable Sridevi Colbert Consulting Unavailable Shannan Rooney Consulting Unavailable Shaun, Mahamed Consulting Unavailable Georgina Gill Attending Unavailable Georgina Gill Consulting Unavailable LESLEY 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, [facility] Unavail able COREY RAGLAND MD Consulting Unavailable KYLE LOPES Attending Unavailable RADHA HUMPHREYS MD Admitting Unavailable ANALIA CERVANTES MD Consulting Unavailable ROSARIO CORREA MD Consulting Unavailable LENY REYES, DR MILLER Consulting Unavailab le LORSON 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, [facility] Unavail able MARGE REYES, DR COLEY Attending Unavailable COREY RAGLAND MD Consulting Unavailable DR TOÑITO COVINGTON MD Admitting Unavailab le LORSON 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, [facility] Unavail able LORSON 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, DENISSE Attending Unavail able AUDREY 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SHUBHAM Attending Unavailabl e LORSON 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, [facility] Unavail able LORSON 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, DENISSE Attending Unavail able LORSON 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, [facility] Primary Care Unavail able LORSON 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, [facility] Primary Care Unavail able LORSON 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, DENISSE Attending Unavail able BALTES 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, SHUBHAM Attending Unavailabl e LORSON 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, [facility] Care Unavail able LORSON 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, DENISSE Attending Unavail able LORSON 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, [facility] Primary Care Unavail able LORSON 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, DENISSE Attending Unavail able LORSON 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, [facility] Care Unavail able TORRI MCCLAIN DO Attending Unavailable LORSON 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, [facility] Care Unavail able LORSON 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, [facility] Unavail able CYDNEY BRAVO, DR REENA Ivey Attending Unavailpineda BARRERA MD, LARRY Tiwari Attending Unavailable LORSON 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, [facility] Unavail able LORSON 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, [facility] Care Unavail able MIGNON REYES, DR SULLIVAN Attending Unavailable Medications Current Medications Medication Drug Class(es) Dates Sig (Normalized) Sig (Original) acetaminophen 325 mg oral tablet (20 sources) Start: 10-03-2020 acetaminophen 325 mg oral tablet Dose : 650 mg = 2 tab(s), Oral, q6h, PRN as needed for pain, # 24 tab(s), 0 Refill(s) Start Date: 12/28/23 Status: Ordered Medication Dispense Status: Completed Quantity: 24.0 Unit: tab(s) Total Allowed Fills: 1 Fills Dispensed: 0 Start: 10-03-2020 take 2 tablets by [facility] every six hours as needed Acetaminophen (Tylenol) 325 mg Tablet Active 650 MG PO EVERY 6 HOURS NEEDED 0 October 03, 2020 12:00am Acidophilus Probiotic Blend oral capsule (17 sources) Start: 08-09-2020 take 1 capsule by mouth once daily Acidophilus Probiotic Blend oral capsule Dose = 1 cap(s), Oral, qDay, # 100 cap(s), 3 Refill(s), Pharmacy: [facility], 160, [...] 120.0 Unit: EA Repeat number: 1 Start: 12-17-2023 End: 07-31-2024 take 1 mL by inhalation every six hours as needed Ipratropium-Albuterol 0.5 mg-3 mg(2.5 mg base)/3 mL Solution For Nebulization Discontinued 3 mL INHALATION EVERY 6 HOURS as needed for sob 0 0 December 17, 2023 12:00am July 31, 2024 6:47pm Start: 11-21-2023 End: 07-31-2024 take 1 mL by inhalation every eight hours Ipratropium-Albuterol 0.5 mg-3 mg(2.5 mg base)/3 mL Solution For Nebulization Discontinued 3 mL INHALATION Q8H 180 14 0 November 21, 2023 12:00am July 31, 2024 6:47pm Acute respiratory failure with hypoxemia Bilateral pneumonia Acute exacerbation of chronic obstructive pulmonary disease Acute respiratory failure with hypoxia Pneumonia, unspecified organism Chronic obstructive pulmonary disease with (acute) exacerbation COPD exacerbation/Pneumonia Start: 01-13-2018 End: 06-04-2018 take 1 mL by inhalation every four hours Ipratropium-Albuterol 3 ML Ampul.Neb Discontinued 3 mL INHALATION EVERY 4 HOURS May 20, 2018 10:40pm June 04, 2018 1:03pm breathing treatment Start: 01-13-2018 End: 06-04-2018 take 1 mL [...] qDay, # 90 tab(s), 3 Refill(s), Pharmacy: [place] [id number], 160.5, cm, 04/13/24 15:35:00 EST, Height, kg, 04/13/24 15:35:00 EST, Dosing Weight Start Date: 04/25/24 Stop Date: 04/20/25 Status: Ordered Medication Dispense Status: Completed Quantity: 90.0 Unit: tab(s) Total Allowed Fills: 4 Fills Dispensed: 0 amLODIPine 10 mg oral tablet (20 sources) Dihydropyridine Calcium Channel Ángela Start: 03-28-2024 amLODIPine 10 mg oral tablet Dose : 10 mg = 1 tab(s), Oral, qDay, # 90 tab(s), 3 Refill(s), Pharmacy: [place] [id number], 158, cm, 02/10/24 8:25:00 EST, Height, kg, 02/10/24 8:24:00 EST, Dosing Weight Start Date: 03/28/24 Status: Ordered Medication Dispense Status: Completed Quantity: 90.0 Unit: tab(s) Total Allowed Fills: 4 Fills Dispensed: 0 Start: 11-14-2020 amLODIPine Bes ylate 10 MG Oral Tablet Quantity: 30 Refills: 0 Ordered: 09-Dec-2020 DO Start : 14-Nov-2020 Active Start: 11-28-2019 End: 01-20-2021 amLODIPine 10 mg oral tablet Dose : 10 mg = 1 tab(s), Oral, qDay, # 90 tab(s), 3 Refill(s), Pharmacy: [place] [id number], 158, cm, 02/10/24 8:25:00 EST, Height, kg, 02/10/24 8:24:00 EST, Dosing Weight Start Date: 03/28/24 Status: Ordered Quantity: 90.0 Unit: tab(s) Repeat number: 4 apixaban 5 mg oral tablet (20 sources) Factor Xa Inhibitor Start: 11-14-2020 Eliquis 5 MG Oral Tablet Quantity: 60 Refills: 0 Ordered: 14-Nov-2020 DO Start : 14-Nov-2020 Active Start: 06-04-2018 End: 07-23-2022 take 1 tablet by mouth twice daily Apixaban 5 MG tablet Discontinued 5 mg PO TWICE A DAY August 04, 2018 5:47pm July 23, 2022 4:00pm BLOOD THINNER . aspirin 81 mg delayed release oral tablet (20 sources) Platelet Aggregation Inhibitor, Nonsteroidal Anti-inflammatory Drug Start: 01-12-2019 aspirin 81 mg ora l delayed release tablet Dose : 81 mg = 1 tab(s), Oral, qDay Start Date: 01/12/19 Status: Ordered Medication Dispense Status: Completed Total Allowed Fills: 1 Fills Dispensed: 0 Start: 01-12-2019 aspirin 81 mg oral delayed release tablet Dose : 81 mg = 1 tab(s), Oral, qDay Start Date: 01/12/19 Status: Ordered Start: 07-15-2018 take 1 tablet by castro th once daily Aspirin 81 MG tablet,chewable Active 81 mg PO DAILY@0800 July 15, 2018 12:00am [facility] Start: 01-09-2018 End: 06-04-2018 take 1 tablet by mouth once daily Aspirin 81 MG Tab.Chew Discontinued 81 mg PO DAILY January 09, 2018 12:00am June 04, 2018 1:02pm HEART Aspirin 81 MG TA BS Quantity: 0 [...] qDay, # 90 tab(s), 3 Refill(s), Pharmacy: [facility] [id number], 155, cm, 05/03/24 15:44:00 EST, Height, kg, 05/03/24 15:44:00 EST, Dosing Weight Start Date: 05/16/24 Stop Date: 05/11/25 Status: Ordered Medication Dispense Status: Completed Quantity: 90.0 Unit: tab(s) Total Allowed Fills: 4 Fills Dispensed: 0 Start: 05-18-2018 End: 05-20-2018 take 1 tablet by mouth at bedtime Atorvastatin 40 MG tablet Discontinued 40 mg PO AT BEDTIME 0 May 20, 2018 1:00am May 20, 2018 10:40pm Azithromycin 3 Day Dose Pack 500 mg oral tablet (1 source) Start: 12-30-2024 End: 01-02-2025 Azithromycin 3 Day Dose Pack 500 mg oral tablet Dose : 500 mg = 1 tab(s), Oral, Daily, X 3 day(s), # 3 tab(s), 0 Refill(s), 01/02/25 3:25:00 PM EDT, [facility] [id number], Community acquired pneumonia, 158, cm, 12/30/24 14:42:00 EDT, Height, 110, kg, 12/30/24 14:42:00 EDT, Dosing Weight Start Date: 12/30/24 Stop Date: 01/02/25 Status: Ordered Medication Dispense Status: Completed Quantity: 3.0 Unit: tab(s) Total Allowed Fills: 1 Fills Dispensed: 0 Indications: Pneumonia, unspecified organism; B Complex With C 20-Folic Acid (Alok Caps) 1 mg capsule (4 sources) Start: 01-13-2023 take 1 capsule by mouth once daily B Complex With C 20-Folic Acid (Potter Caps) 1 mg capsule Active 1 CAP PO DAILY January 12, 2023 11:00pm Start: 01-13-2023 take [address] [facility] once daily B Complex With C 20-Folic Acid (Potter Caps) 1 mg capsule Active 1 CAP PO DAILY January 13, 2023 12:00am B Complex-Vitamin C-Folic Ac id (Nephro-Todd) 0.8 mg tablet (14 sources) Start: 01-13-2023 B Complex-Shagufta min C-Folic Acid (Nephro-Todd) 0.8 mg tablet Active 1 {tbl} PO DAILY January 13, 2023 12:00am Start: 01-13-2023 take 1 tablet by castro once daily B Complex-Vitamin C-Folic Acid (Nephro-Todd) 0.8 mg tablet Active 1 TABLET PO DAILY January 13, 2023 12:00am Start: 01-13-2023 take 1 tablet by castro once daily B Complex-Vitamin C-Folic Acid (Nephro-Todd) 0.8 mg tablet Active 1 TABLET PO DAILY January 12, 2023 11:00pm Start: 07-12-2022 End: 12-10-2022 B Complex-Vitamin C-Folic Ac id (Nephro-Todd) 0.8 mg tablet Discontinued 1 {tbl} DAILY July 12, 2022 12:00am December 10, 2022 3:42pm Check with primary doctor Start: 07-12-2022 End: 12-10-2022 B Complex-Vitamin C-Folic [...] TABLET PO DAILY January 13, 2023 12:00am benzonatate 100 mg oral capsule (1 source) Non-narcotic Antitussive Start: 11-08-2024 End: 11-14-2024 Tessalon Perles 100 mg oral capsule Dose : 100 mg = 1 cap(s), Oral, q8h, PRN as needed for cough, # 30 cap(s), 0 Refill(s), 11/14/24 6:50:00 AM EDT Start Date: 11/08/24 Stop Date: 11/14/24 Status: Ordered Medication Dispense Status: Completed Quantity: 30.0 Unit: cap(s) Total Allowed Fills: 1 Fills Dispensed: 0 Blood Glucose Test Machine (20 sources) Start: 10-03-2024 Blood Glucose Test Machine See Instructions, True Metrix Glucometer. Use glucometer daily as directed for blood sugar checks. Dispense insurance preferred device, # 1 EA, 0 Refill(s), Pharmacy: [place] [id number], 155, cm, 08/16/24 11:12:00 EDT, Height, 111, kg, 08/16/24 11:12:00 EDT, Dosing Weight Start Date: 10/03/24 Status: Ordered Medication Dispense Status: Completed Quantity: 1.0 Unit: EA Total Allowed Fills: 1 Fills Dispensed: 0 Start: 10-03-2024 Blood Glucose Test Machine See Instructions, True Metrix Glucometer. Use glucometer daily as directed for blood sugar checks. Dispense insurance preferred device, # 1 EA, 0 Refill(s), Pharmacy: [place] [id number], 155, cm, 08/16/24 11:12:00 EDT, Height, 111, kg, 08/16/24 11:12:00 EDT, Dosing Weight Start Date: 10/03/24 Status: Ordered Quantity: 1.0 Unit: EA Repeat number: 1 Start: 01-31-2022 Blood Glucose Test Machine See Instructions, Brand type per insurance or patient preference. Dx: E11.9, pt insulin dependent, test 4times/day, # 1 EA, 0 Refill(s), Pharmacy: [place] [id number], 159, cm, 01/21/22 15:18:00 EDT, Height, 97.1, kg, 01/21/22 15:18:00... Start Date: 01/31/22 Status: Ordered Start: 03-28-2020 Blood Glucose Test Machine See Instructions, Brand type per insurance or patient preference. Dx: E11.9, pt insulin dependent, test 4times/day, # 1 EA, 0 Refill(s), [facility], cm, 03/13/20 13:36:00 EST, Height, 93.4, kg, 03/13/20 13:36:00 EST, Dosing Weight Start Date: 03/28/20 Status: Ordered Start: 02-16-2019 Blood Glucose Test Machine See Instructions, Use as directed Brand type per insurance or patient preference, # 1 EA, 0 Refill(s), Pharmacy: [id number] Start Date: 02/16/19 Status: Ordered Blood Pressure Cuff (12 sources) Start: 05-12-2023 Blood Pressure Cuff See Instructions, Check and Log Blood Pressure Daily, # 1 EA, 0 Refill(s), Pharmacy: [place] [facility] [id number], (HFpEF) heart failure with preserved ejection fraction Systolic murmur, 155, cm, 05/12/23 16:07:00 EST, Height, 102.2, kg, 05/12/23 16:07:00 EST, Dosing Weight Start Date: 05/12/23 Status: Ordered Medication Dispense Status: Completed Quantity: 1.0 Unit: EA Total Allowed Fills: 1 Fills Dispensed: 0 Indications: Cardiac murmur, unspecified; Unspecified diastolic (congestive) heart failure; Start: 05-12-2023 Blood Pressure Cuff See Instructions, Check and Log Blood Pressure Daily, # 1 EA, 0 Refill(s), [facility] [facility], (HFpEF) heart failure with preserved ejection fraction Systolic murmur, 155, cm, 05/12/23 16:07:00 EST, Height, 102.2, kg, 05/12/23 16:07:00 EST, Dosing Weight Start Date: 05/12/23 Status: Ordered Quantity: 1.0 Unit: EA Repeat number: 1 Indications: Cardiac murmur, unspecified; Unspecified diastolic (congestive) heart failure; Start: 05-12-2023 Blood Pressure Cuff See Instructions, Check and Log Blood Pressure Daily, # 1 EA, 0 Refill(s), [facility] [place] [facility], (HFpEF) heart failure with preserved ejection fraction Systolic murmur, 155, cm, 05/12/23 16:07:00 EST, Height, 102.2, kg, 05/12/23 16:07:00 EST, Dosing Weight Start Date: 05/12/23 Status: Ordered Blood-Glucose Meter (Onetouch Verio Flex Meter) [facility] (2 sources) Start: 07-31-2024 Blood-Glucose Meter (Onetouch Verio Flex Meter) [facility] Active NMA July 31, 2024 12:00am Breo Ellipta 100 mcg-25 mcg/inh inhalation powder (1 source) Start: 01-11-2025 End: 05-11-2025 take 1 dose by inhalation once daily Breo Ellipta 100 mcg-25 mcg/inh inhalation powder Dose = 1 puff(s), Inhalation, qDay, at the same time every day, # 1 EA, 3 Refill(s), Pharmacy: [place] [id number], 155, cm, 01/11/25 15:03:00 EDT, Height, kg, 01/11/25 14:58:00 EDT, Dosing Weight Start Date: 01/11/25 Stop Date: 05/11/25 Status: Ordered Medication Dispense Status: Completed Quantity: 1.0 Unit: EA Total Allowed Fills: 4 Fills Dispensed: 0 brimonidine tartrate 2 mg/ml ophthalmic solution (1 source) alpha-Adrenerg ic Agonist Start: 11-07-2011 BRIMONIDINE 0.2 % ophthalmic solution Budesonide / formoterol (1 source) Corticosteroid , beta2-Adrenerg ic Agonist Start: 01-06-2012 take 2 puff(s) by inhalation twice daily budesonide-formoter ol (SYMBICORT) 160-4.5 mcg/actuation inhaler Inhale 2 Puffs as instructed twice daily. 1 Inhaler 4 01/06/2012 Active calcium acetate 667 mg oral capsule (5 sources) Start: 11-09-2024 calcium acetate 667 mg oral capsule Dose : 1,334 mg = 2 cap(s), Oral, TID, with meals, # 180 cap(s), 0 Refill(s) Start Date: 11/09/24 Status: Ordered Medication Dispense Status: Completed Quantity: 180.0 Unit: cap(s) Total Allowed Fills: 1 Fills Dispensed: 0 calcium carbonate 750 mg chewable tablet (5 sources) Start: 11-09-2024 Tums E-X 750 mg oral tablet, chewable Dose : 750 mg = 1 tab(s), Chewed, BID, Scheduled in between meals, # 60 tab(s), 0 Refill(s) Start Date: 11/09/24 Status: Ordered Medication Dispense Status: Completed Quantity: 60.0 Unit: tab(s) Total Allowed Fills: 1 Fills Dispensed: 0 carvedilol 3.125 mg oral tablet (20 sources) alpha-Adrenerg ic Ángela, beta-Adrenergi c Ángela Start: 11-29-2024 Coreg 3.125 mg oral tablet Dose : 3.125 mg = 1 tab(s), Oral, BID, # 180 tab(s), 3 Refill(s), Pharmacy: [facility] [id number], 155, cm, 11/22/24 15:19:00 EDT, Height, kg, 11/22/24 15:19:00 EDT, Dosing Weight Start Date: 11/29/24 Status: Ordered Medication Dispense Status: Completed Quantity: 180.0 Unit: tab(s) Total Allowed Fills: 4 Fills Dispensed: 0 Start: 11-11-2024 Coreg 3.125 mg oral tablet Dose : 3.125 mg = 1 tab(s), Oral, BIDM, # 60 tab(s), 0 Refill(s), Pharmacy: [facility] [id number], 155, cm, 10/26/24 15:06:00 EDT, Height, kg, 11/10/24 13:22:00 EDT, Dosing Weight Start Date: 11/11/24 Status: Ordered Medication Dispense Status: Completed Quantity: 60.0 Unit: tab(s) Total Allowed Fills: 1 Fills Dispensed: 0 Start: 10-05-2024 Coreg 12.5 mg oral tablet Dose : 12.5 mg = 1 tab(s), Oral, BID, # 180 tab(s), 3 Refill(s), Pharmacy: [facility] [id number], 155, cm, 08/16/24 11:12:00 EDT, Height, kg, 08/16/24 11:12:00 EDT, Dosing Weight Start Date: 10/05/24 Status: Ordered Medication Dispense Status: Completed Quantity: 180.0 Unit: tab(s) Total Allowed Fills: 4 Fills Dispensed: 0 Start: 11-05-2023 Coreg 12.5 mg oral tablet Dose : 12.5 mg = 1 tab(s), Oral, BID, # 180 tab(s), 3 Refill(s), Pharmacy: [facility] [id number], 155, cm, 10/27/23 15:18:00 EDT, Height, kg, 10/27/23 15:18:00 EDT, Dosing Weight Start Date: 11/05/23 Status: Ordered Quantity: 180.0 Unit: tab(s) Repeat number: 4 Start: 12-16-2022 Coreg 12.5 mg oral tablet Dose : 12.5 mg = 1 tab(s), Oral, BID, # 180 tab(s), 3 Refill(s), Pharmacy: [facility] [id number], 154.9, cm, 11/18/22 8:18:00 EDT, Height, kg, 11/18/22 8:18:00 EDT, Dosing Weight Start Date: 12/16/22 Status: Ordered Start: 09-03-2022 Coreg 12.5 mg oral tablet Dose : 12.5 mg = 1 tab(s), Oral, BID, # 60 tab(s), 3 Refill(s), Pharmacy: [facility] [id number], 155, cm, 09/03/22 10:30:00 EDT, Height Start Date: 09/03/22 Status: Ordered Start: 07-31-2021 End: 01-08-2023 Coreg 6.25 mg oral tablet Do se : 6.25 mg = 1 tab(s), Oral, BID, # 60 tab(s), 11 Refill(s), Pharmacy: [facility] [id number], 160, cm, 12/13/21 17:24:00 EDT, Height, kg, 12/14/21 15:31:00 EDT, Dosing Weight Start Date: 01/13/22 Stop Date: 01/08/23 Status: Ordered Start: 09-20-2020 take 6.25 mg by mout h twice daily Carvedilol 12.5 mg tablet Active 6.25 mg PO TWICE A DAY September 20, 2020 12:00am blood pressure Start: 09-20-2020 take 6.25 mg by mout h twice daily Carvedilol Active 6.25 MG PO TWICE A DAY September 20, 2020 12:00am Start: 02-14-2020 Carvedilol 12. 5 MG Oral Tablet Quantity: 60 Refills: 0 Ordered: 18-Nov-2020 DO Start : 14-Feb-2020 Active Start: 02-14-2020 Coreg 12.5 mg oral tablet Dose : 12.5 mg = 1 tab(s), Oral, BID, # 60 tab(s), 11 Refill(s), Pharmacy: [facility], 160, cm, 02/14/20 9:21:00 EST, Height, kg, 02/14/20 9:21:00 EST, Dosing Weight Start Date: 02/14/20 Status: Ordered Start: 11-28-2019 End: 08-03-2020 take 1 tablet by mouth twice daily Carvedilol 25 MG tablet Discontinued 25 mg PO TWICE A DAY 60 0 November 28, 2019 12:00am August 03, 2020 1:15pm Start: 05-04-2019 End: 11-28-2019 take 1 tablet by mouth twice daily Carvedilol 12.5 MG tablet Discontinued 12.5 mg PO TWICE A DAY May 04, 2019 1:00am November 28, 2019 10:52am bp cholecalciferol 0.05 mg oral capsule (15 sources) Vitamin D Start: 01-13-2023 take 1 capsule by mouth once daily Cholecalciferol (Vitamin D3) 50 mcg (2,000 unit) capsule Active 50 ug PO DAILY January 13, 2023 12:00am Start: 07-12-2022 End: 12-10-2022 Cholecalciferol (Vitamin D3) 50 mcg (2,000 unit) capsule Discontinued 50 ug DAILY July 12, 2022 12:00am December 10, 2022 3:31pm Check with primary doctor codeine phosphate 1.5 mg/ml / guaiFENesin 45 [...] QID, # 100 gram(s), 3 Refill(s), Pharmacy: [facility], [facility], 161.3, cm, 07/31/21 7:54:00 EDT, Height, 98.5, kg, 07/31/21 7:54:00 EDT, Dosing Weight Start Date: 08/28/21 Status: Ordered Start: 07-31-2021 diclofenac 1% topical gel Apply 1 toby, Topical, QID, # 100 gram(s), 0 Refill(s), Pharmacy: [facility], [facility], 161.3, cm, 07/31/21 7:54:00 EDT, Height, 98.5 Start Date: 07/31/21 Status: Ordered DME MISCellaneous (20 sources) Start: 07-20-2024 DME MISCellane ous See Instructions, Discontinue home o2--patient no longer needing. ., # 1 EA, 0 Refill(s), 108.6 Start Date: 07/20/24 Status: Ordered Medication Dispense Status: Completed Quantity: 1.0 Unit: EA Total Allowed Fills: 1 Fills Dispensed: 0 Start: 07-20-2024 DME MISCellane ous See Instructions, Discontinue home o2--patient no longer needing. ., # 1 EA, 0 Refill(s), 108.6 Start Date: 07/20/24 Status: Ordered Quantity: 1.0 Unit: EA Repeat number: 1 Start: 05-23-2024 DME MISCellane ous See Instructions, One touch Ultra2 glucometer. Dispense #1. 0 refills. Use as directed to check blood sugar., # 1 EA, 0 Refill(s), [facility] [id number], 155, cm, 05/03/24 15:44:00 EST, Height, 107.4, kg, 05/03/24 15:44:00 EST, Dosing Weight Start Date: 05/23/24 Status: Ordered Medication Dispense Status: Completed Quantity: 1.0 Unit: EA Total Allowed Fills: 1 Fills Dispensed: 0 Start: 05-23-2024 DME MISCellane ous See Instructions, One touch Ultra2 glucometer. Dispense #1. 0 refills. Use as directed to check blood sugar., # 1 EA, 0 Refill(s), Pharmacy: [facility] [id number], 155, cm, 05/03/24 15:44:00 EST, Height, 107.4, kg, 05/03/24 15:44:00 EST, Dosing Weight Start Date: 05/23/24 Status: Ordered Quantity: 1.0 Unit: EA Repeat number: 1 Start: 03-14-2024 DME MISCellane ous See Instructions, Freestyle Glucometer. Use to check blood sugars 4 times daily with insulin administrations, # 1 EA, 0 Refill(s), Pharmacy: [facility] [id number], 158, cm, 02/10/24 8:25:00 EST, Height, 104.5, kg, 02/10/24 8:24:00 EST, Dosing Weight Start Date: 03/14/24 Status: Ordered Quantity: 1.0 Unit: EA Repeat number: 1 Start: 09-29-2023 DME MISCellane ous See Instructions, One Touch Verio Glucometer. Use daily to monitor blood sugars, # 1 EA, 0 Refill(s), Pharmacy: [facility] [id number], 159, cm, 06/03/23 13:51:00 EST, Height, 14.54, kg, 06/08/23 16:20:00 EDT, Dosing Weight Start Date: 09/29/23 Status: Ordered Quantity: 1.0 Unit: EA Repeat number: 1 Start: 09-29-2023 DME MISCellane ous See Instructions, One Touch Verio Glucometer. Use daily to monitor blood sugars, # 1 EA, 0 Refill(s), Pharmacy: [facility] [id number], 159, cm, 06/03/23 13:51:00 EST, Height, 14.54, kg, 06/08/23 16:20:00 EDT, Dosing Weight Start Date: 09/29/23 Status: Ordered Start: 05-20-2023 DME MISCellane ous See Instructions, One rollator. DX stroke, # 1 EA, 0 Refill(s) Start Date: 05/20/23 Status: Ordered Medication Dispense Status: Completed Quantity: 1.0 Unit: EA Total Allowed Fills: 1 Fills Dispensed: 0 Start: 05-20-2023 DME MISCellane ous See Instructions, [...] Dosing Weight Start Date: 08/09/20 Status: Ordered doxycycline hyclate 100 mg oral capsule (11 sources) Tetracycline-cla ss Drug Start: 11-08-2024 End: 11-18-2024 doxycycline hyclate 100 mg oral capsule Dose : 100 mg = 1 cap(s), PO, BID, X 10 day(s), # 20 cap(s), 0 Refill(s), 11/18/24 6:48:00 AM EDT, 112.8 Start Date: 11/08/24 Stop Date: 11/18/24 Status: Ordered Medication Dispense Status: Completed Quantity: 20.0 Unit: cap(s) Total Allowed Fills: 1 Fills Dispensed: 0 Start: 05-18-2018 End: 05-20-2018 Doxycycline Monohydrate 100 MG tablet Discontinued 100 mg PO May 18, 2018 1:00am May 20, 2018 1:55pm escitalopram 20 mg oral tablet (20 sources) Serotonin Reuptake Inhibitor Start: 08-13-2021 End: 01-08-2023 Lexapro 20 mg oral tablet Dose : 20 mg = 1 tab(s), Oral, qDay, # 30 tab(s), 11 Refill(s), Pharmacy: [facility] [id number], 160, cm, 12/13/21 17:24:00 EDT, Height, kg, 12/14/21 15:31:00 EDT, Dosing Weight Start Date: 01/13/22 Stop Date: 01/08/23 Status: Ordered Start: 07-31-2021 Lexapro 10 mg oral tablet Dose : 10 mg = 1 tab(s), Oral, qDay, # 30 tab(s), 5 Refill(s), Pharmacy: [facility] [id number], 161.3, cm, 07/31/21 7:54:00 EDT, Height Start Date: 07/31/21 Status: Ordered Start: 10-11-2020 End: 10-06-2021 Lexapro 5 mg oral tablet Dos e : 5 mg = 1 tab(s), Oral, qDay, # 30 tab(s), 11 Refill(s), Pharmacy: [facility], 168, cm, 10/11/20 14:11:00 EDT, Height, kg, 10/11/20 14:11:00 EDT, Dosing Weight Start Date: 10/11/20 Stop Date: 10/06/21 Status: Ordered Start: 08-09-2020 Escitalopram O xalate 5 MG Oral Tablet Quantity: 30 Refills: 0 Ordered: 18-Nov-2020 DO Start : 09-Aug-2020 Active ezetimibe 10 mg oral tablet (20 sources) Dietary Cholesterol Absorption Inhibitor Start: 11-03-2024 Zetia 10 mg oral tablet Dose : 10 mg = 1 tab(s), Oral, qDay, # 90 tab(s), 3 Refill(s), Pharmacy: [facility] [id number], 155, cm, 10/26/24 15:06:00 EDT, Height, kg, 10/26/24 15:06:00 EDT, Dosing Weight Start Date: 11/03/24 Status: Ordered Medication Dispense Status: Completed Quantity: 90.0 Unit: tab(s) Total Allowed Fills: 4 Fills Dispensed: 0 Start: 01-05-2023 Zetia 10 mg or al tablet Dose : 10 mg = 1 tab(s), Oral, qDay, # 90 tab(s), 3 Refill(s), Pharmacy: [id number], 155, cm, 10/27/23 15:18:00 EDT, Height, kg, 10/27/23 15:18:00 EDT, Dosing Weight Start Date: 11/05/23 Status: Ordered Quantity: 90.0 Unit: tab(s) Repeat number: 4 Start: 02-12-2022 End: 12-10-2022 Ezetimibe 10 mg tablet Disco ntinued 10 mg DAILY July 12, 2022 12:00am December 10, 2022 3:31pm Check with primary doctor fenofibrate 145 mg oral tablet (1 source) [...] Date: 04/01/21 Status: Ordered Start: 02-14-2020 End: 02-08-2021 IRON (ferrous sulfate 325 mg ) 65 mg oral tablet Dose : 325 mg = 1 tab(s), Oral, qDay, Take with food., # 30 tab(s), 11 Refill(s), Pharmacy: [facility], 160, cm, 02/14/20 9:21:00 EST, Height, kg, 02/14/20 9:21:00 EST, Dosing Weight Start Date: 02/14/20 Stop Date: 02/08/21 Status: Ordered FreeStyle Navid 3 [place] (3 sources) Start: 09-01-2024 FreeStyle Libr e 3 [place] See Instructions, Use reader to scan sensor once with every new sensor. Keep reader within 33 feet of the sensor and transmitter for daily blood sugar checks, # 1 EA, 0 Refill(s), Pharmacy: [facility] [id number], 155, cm, 08/16/24 11:12:00 EDT, Height, 111, kg, 08/16/24 11:12:00 EDT, Dosing Weight Start Date: 09/01/24 Status: Ordered Medication Dispense Status: Completed Quantity: 1.0 Unit: EA Total Allowed Fills: 1 Fills Dispensed: 0 Start: 09-01-2024 FreeStyle Libr e 3 [place] See Instructions, Use reader to scan sensor once with every new sensor. Keep reader within 33 feet of the sensor and transmitter for daily blood sugar checks, # 1 EA, 0 Refill(s), Pharmacy: [facility] [id number], 155, cm, 08/16/24 11:12:00 EDT, Height, 111, kg, 08/16/24 11:12:00 EDT, Dosing Weight Start Date: 09/01/24 Status: Ordered Quantity: 1.0 Unit: EA Repeat number: 1 FreeStyle Navid 3+ Sensors (7 sources) Start: 12-21-2024 FreeStyle Libr e 3+ Sensors See Instructions, Place once sensor to the back of the upper arm every 15 days. Use reader or phone toby for daily blood sugar checks. 1 month supply. [id number], # 2 EA, 11 Refill(s), Pharmacy: [facility] [id number], 155, cm, 12/21/24 8:01:00 EDT, Height, 110.7, kg, 12/21/24 8:01:00 EDT, Dosing Weight Start Date: 12/21/24 Status: Ordered Medication Dispense Status: Completed Quantity: 2.0 Unit: EA Total Allowed Fills: 12 Fills Dispensed: 0 Start: 09-01-2024 FreeStyle Libr e 3+ Sensors See Instructions, Place once sensor to the back of the upper arm every 15 days. Use reader or phone toby for daily blood sugar checks. 1 month supply, # 2 EA, 6 Refill(s), Pharmacy: [facility] [id number], 155, cm, 08/16/24 11:12:00 EDT, Height, 111, kg, 08/16/24 11:12:00 EDT, Dosing Weight Start Date: 09/01/24 Status: Ordered Medication Dispense Status: Completed Quantity: 2.0 Unit: EA Total Allowed Fills: 7 Fills Dispensed: 0 Start: 09-01-2024 FreeStyle Libr e 3+ Sensors See Instructions, Place once sensor to the back of the upper arm every 15 days. Use reader or phone toby for daily blood sugar checks. 1 month supply, # 2 EA, 6 Refill(s), Pharmacy: [facility] [id number], 155, cm, 08/16/24 11:12:00 EDT, Height, 111, kg, 08/16/24 11:12:00 EDT, Dosing Weight Start Date: 09/01/24 Status: Ordered Quantity: 2.0 Unit: EA Repeat number: 7 FREESTYLE LITE METER monitoring kit (1 source) Start: 12-24-2011 FREESTYLE LITE METER monitoring kit gabapentin 100 mg oral capsule (20 sources) Anti-epileptic Agent Start: 10-26-2024 End: 04-24-2025 gabapentin 100 mg oral capsule Dose : 100 mg = 1 cap(s), Oral, BID, # 60 cap(s), 5 Refill(s), Pharmacy: [facility] [id number], Leg pain, 155, cm, 10/26/24 15:06:00 EDT, Height, 112.8, kg, 10/26/24 15:06:00 EDT, Dosing Weight Start Date: 10/26/24 Stop Date: 04/24/25 Status: Ordered Medication Dispense Status: Completed Quantity: 60.0 Unit: cap(s) Total Allowed Fills: 6 Fills Dispensed: 0 Indications: Pain in leg, unspecified; Start: 10-09-2024 take [address] [facility] three times daily Gabapentin 100 mg capsule Active 100 mg PO THREE TIMES A DAY October 09, 2024 12:00am Start: 05-16-2024 End: 11-12-2024 take 1 capsule by mouth twice daily gabapentin 100 mg oral capsule Dose : 100 mg = 1 cap(s), Oral, BID, Corrected dose to 100 mg bid, # 60 cap(s), 5 Refill(s), Pharmacy: [facility] [id number], Leg pain, 155, cm, 05/03/24 15:44:00 EST, Height, 107.4, kg, 05/03/24 15:44:00 EST, Dosing Weight Start Date: 05/16/24 Stop Date: 11/12/24 Status: Ordered Quantity: 60.0 Unit: cap(s) Repeat number: 6 Indications: Pain in leg, unspecified; Start: 12-10-2022 take 1 capsule by mo ut three times daily as needed Gabapentin 300 mg capsule Active 300 mg PO THREE TIMES A DAY as needed for NEUROPATHY December 10, 2022 12:00am Start: 10-07-2021 End: 12-19-2023 gabapentin 100 mg oral capsu le Dose : 100 mg = 1 cap(s), Oral, BID, # 60 cap(s), 5 Refill(s), Pharmacy: [facility] [id number], Leg pain, 159, cm, 06/03/23 13:51:00 EST, Height, 14.54, kg, 06/08/23 16:20:00 EDT, Dosing Weight Start Date: 06/22/23 Stop Date: 12/19/23 Status: Ordered Start: 03-19-2021 End: 09-15-2021 gabapentin 100 mg oral capsu le Dose : 100 mg = 1 cap(s), Oral, TID, # 90 cap(s), 5 Refill(s), [facility]acy: [facility], Leg pain, 160, cm, 03/19/21 13:15:00 EST, Height, 104.4, kg, 03/19/21 13:15:00 EST, Dosing Weight Start Date: 03/19/21 Stop Date: 09/15/21 Status: Ordered Start: 11-14-2020 End: 12-14-2020 gabapentin 100 mg oral capsu le Dose : 100 mg = 1 cap(s), Oral, TID, # 90 cap(s), 0 Refill(s), Pharmacy: [facility], Leg pain, 168, cm, 10/11/20 14:11:00 EDT, Height, 98.5, kg, 10/11/20 14:11:00 EDT, Dosing Weight Start Date: 11/14/20 Stop Date: 12/14/20 Status: Ordered Start: 10-11-2020 Gabapentin 100 MG Oral Capsule Quantity: 90 Refills: 0 Ordered: 13-Dec-2020 DO Start : 11-Oct-2020 Active Start: 05-20-2018 End: 09-24-2018 take 1 capsule by mouth three times daily at mealtime Gabapentin 100 MG capsule Discontinued 100 mg PO 3 TIMES DAILY WITH MEALS May 20, 2018 10:40pm September 24, 2018 10:25am neuropathy Start: 01-09-2018 End: 06-04-2018 take 1 tablet by mouth three times daily Gabapentin (Gralise) 600 MG Tab.Er.24h Discontinued 600 mg PO THREE TIMES A DAY January 09, 2018 12:00am June 04, 2018 1:03pm NEUROPATHY 12 hr guaiFENesin 1200 mg extended release oral tablet (6 sources) Start: 10-11-2024 take 1 tablet by mouth twice daily, then take 1 tablet by mouth every twelve hours Guaifenesin (Mucus Relief Er) 1,200 mg Tablet Extended Release 12hr Active 1200 mg PO TWICE A DAY 0 0 October 11, 2024 12:00am Start: 12-17-2023 End: 07-31-2024 take 1 tablet by mouth twice daily, then take 1 tablet by mouth every twelve hours Guaifenesin (Mucus Relief Er) 1,200 mg Tablet Extended Release 12hr Discontinued 1200 mg PO TWICE A DAY 0 7 0 December 17, 2023 12:00am July 31, 2024 6:46pm Start: 11-21-2023 End: 12-14-2023 take 1 tablet by mouth twice daily, then take 1 tablet by mouth every twelve hours Guaifenesin (Mucus Relief Er) 1,200 mg Tablet Extended Release 12hr Discontinued 1200 mg PO TWICE A DAY 28 14 0 November 21, 2023 12:00am December 14, 2023 7:58am Start: 04-15-2022 End: 04-22-2022 guaiFENesin 600 mg oral tabl et, extended release Dose : 600 mg = 1 tab(s), Oral, q12h, PRN Cough, X 7 day(s), # 14 tab(s), 0 Refill(s), 04/22/22 14:19:00 EST, Pharmacy: [facility] [id number], 160, cm, 04/15/22 13:44:00 EST, Height Start Date: 04/15/22 Stop Date: 04/22/22 Status: Ordered HumaLOG KwikPen 100 units/mL injectable PEN (2 sources) Start: 12-28-2020 HumaLOG KwikPe n 100 units/mL injectable PEN Dose : 5 unit(s) =, Subcutaneous, BIDAC, # 15 mL, 6 Refill(s), Pharmacy: [facility], 160, cm, 11/29/20 9:08:00 EDT, Height, kg, 11/29/20 9:08:00 EDT, Dosing Weight Start Date: 12/28/20 Status: Ordered 3 ml insulin aspart, human 100 unt/ml pen injector (20 sources) Insulin Analog Start: 11-16-2024 inject 5 [IU] by subcutaneous injection at breakfast, then inject 8 [IU] by subcutaneous injection at lunch, then inject 5 [IU] by subcutaneous injection at dinner NovoLOG FlexPen 100 units/mL injectable solution See Instructions, Inject 5 units SubQ with breakfast, 8 units with lunch, and 5 units with dinner. Do not give insulin if BG Start Date: 11/16/24 Status: Ordered Medication Dispense Status: Completed Quantity: 15.0 Unit: mL Total Allowed Fills: 7 Fills Dispensed: 0 Start: 12-28-2023 inject 1 dose by sub cutaneous injection before lunch NovoLOG FlexPen 100 units/mL injectable solution Dose : 5 unit(s) =, Subcutaneous, BIDAC, before lunch and dinner.If blood sugar Start Date: 12/28/23 Status: Ordered Medication Dispense Status: Completed Total Allowed Fills: 1 Fills Dispensed: 0 Start: 12-17-2023 End: 07-31-2024 Insulin Aspart U-100 (Novolo g Flexpen U-100 Insulin) 100 unit/mL (3 mL) insulin pen Discontinued 13 U SC TWICE A DAY 0 30 0 December 17, 2023 12:47pm July 31, 2024 6:47pm blood sugar Start: 09-11-2021 NovoLOG FlexPe n 100 units/mL injectable solution Dose : 5 unit(s) =, Subcutaneous, BIDAC, # 1 mL, 11 Refill(s), Pharmacy: [facility], 159.8, cm, 09/02/21 13:54:00 EDT, Height Start Date: 09/11/21 Status: Ordered Start: 03-21-2021 End: 12-17-2023 Insulin Aspart U-100 (Novolo g Flexpen U-100 Insulin) 100 unit/mL (3 mL) insulin pen Discontinued 5 U SC TWICE A DAY March 21, 2021 10:55am December 17, 2023 12:47pm blood sugar Start: 01-25-2021 End: 03-21-2021 Insulin Aspart U-100 (Novolo g Flexpen U-100 Insulin) 100 unit/mL (3 mL) insulin pen Discontinued 10 U SC 3 TIMES DAILY WITH MEALS 0 0 January 25, 2021 4:22pm March 21, 2021 10:58am blood sugar Start: 01-23-2021 End: 01-25-2021 Insulin Aspart U-100 (Novolo g Flexpen U-100 Insulin) 100 unit/mL (3 mL) insulin pen Discontinued 20 U SC 3 TIMES DAILY WITH MEALS 0 0 January 23, 2021 3:41pm January 25, 2021 4:22pm blood sugar Start: 09-20-2020 End: 01-23-2021 Insulin Aspart U-100 (Novolo g Flexpen U-100 Insulin) 100 unit/mL (3 mL) insulin pen Discontinued 5 U SC WITH LUNCH September 20, 2020 12:00am January 23, 2021 3:26pm blood sugar 3 ml insulin glargine 300 unt/ml pen injector (20 sources) Insulin Analog Start: 01-12-2024 inject 1 dose by subcutaneous injection once daily Toujeo Max SoloStar 300 units/mL subcutaneous solution Dose : 20 unit(s) =, Subcutaneous, qDay, # 6 mL, 11 Refill(s), Pharmacy: [facility] [id number], 158.5, cm, 01/12/24 15:01:00 EDT, Height, kg, 01/12/24 15:01:00 EDT, Dosing Weight Start Date: 01/12/24 Status: Ordered Medication Dispense Status: Completed Quantity: 6.0 Unit: mL Total Allowed Fills: 12 Fills Dispensed: 0 Start: 06-03-2023 inject 1 dose by sub cutaneous injection once daily Toujeo Max SoloStar 300 units/mL subcutaneous solution Dose : 20 unit(s) =, Subcutaneous, qDay, # 6 mL, 11 Refill(s), Pharmacy: [facility] [id number], 159, cm, 06/03/23 13:51:00 EST, Height, kg, 06/03/23 13:51:00 EST, Dosing Weight Start Date: 06/03/23 Status: Ordered Start: 04-16-2023 inject 1 dose by sub cutaneous injection once daily Toujeo Max SoloStar 300 units/mL subcutaneous solution Dose : 20 unit(s) =, Subcutaneous, qDay, sent in absence of PCP, # 6 mL, 0 Refill(s), Pharmacy: [facility] [id number], 62, cm, 03/10/23 16:45:00 EST, Height, kg, 03/10/23 16:37:00 EST, Dosing Weight Start Date: 04/16/23 Status: Ordered Start: 12-02-2022 End: 04-01-2023 inject 1 dose by subcutaneous injection once daily Toujeo Max SoloStar 300 units/mL subcutaneous solution Dose : 20 unit(s) =, Subcutaneous, qDay, # 3 mL, 3 Refill(s), Pharmacy: [facility] [id number], 154.9, cm, 11/18/22 8:18:00 EDT, Height, kg, 11/18/22 8:18:00 EDT, Dosing Weight Start Date: 12/02/22 Stop Date: 04/01/23 Status: Ordered Start: 09-03-2022 End: 10-03-2022 inject 1 dose by subcutaneous injection once daily Toujeo Max SoloStar 300 units/mL subcutaneous solution Dose : 20 unit(s) =, Subcutaneous, qDay, sent in absence of PCP, # 3 mL, 0 Refill(s), Pharmacy: [id number], 155, cm, 08/28/22 23:41:00 EDT, Height, kg, 08/28/22 23:41:00 EDT, Dosing Weight Start Date: 09/03/22 Stop Date: 10/03/22 Status: Ordered Start: 09-23-2021 End: 03-22-2022 inject 1 dose by subcutaneous injection once daily Toujeo Max SoloStar 300 units/mL subcutaneous solution Dose : 20 unit(s) =, Subcutaneous, qDay, # 3 mL, 1 Refill(s), [facility] [id number], 155, cm, 11/04/21 14:50:00 EDT, Height, kg, [...] unit/mL (1.5 mL) insulin pen Discontinued 20 U SC WITH BREAKFAST 0 0 January 23, 2021 3:41pm March 21, 2021 10:58am diabetes Start: 08-03-2020 End: 01-23-2021 Insulin Glargine U-300 Conc (Toujeo Solostar U-300 Insulin) 300 unit/mL (1.5 mL) insulin pen Discontinued 18 U SC WITH BREAKFAST August 03, 2020 1:17pm January 23, 2021 3:41pm diabetes Start: 05-26-2019 End: 08-03-2020 inject 12 [IU] by subcutaneous injection in the morning, then inject 10 [IU] by subcutaneous injection at bedtime Insulin Glargine U-300 Conc 300 unit/mL (1.5 mL) insulin pen Discontinued 0 SC AT BEDTIME May 26, 2019 10:26am August 03, 2020 1:19pm diabetes 12 units AM, 10 units PM subcut at bedtime; Start: 05-04-2019 End: 05-26-2019 Insulin Glargine U-300 Conc 300 UNIT/ML insulin pen Discontinued 300 U SQ AT BEDTIME May 04, 2019 1:00am May 26, 2019 10:27am Start: 05-20-2018 End: 05-20-2018 Insulin Glargine (Lantus Daria ostar U-100 Insulin) 100 UNITS/ML Pen Discontinued 10 U SC TWICE A DAY 0 May 20, 2018 1:00am May 20, 2018 10:40pm Start: 01-13-2018 End: 05-20-2018 Insulin Glargine (Lantus Daria ostar U-100 Insulin) 100 UNITS/ML Pen Discontinued 5 U SC TWICE A DAY 0 January 13, 2018 12:00am May 20, 2018 1:56pm Start: 12-26-2011 LANTUS SOLOSTA R 100 unit/mL (3 mL) InPn Insulin Glargine U-300 Conc (Toujeo Solostar U-300 Insulin) 300 unit/mL (1.5 mL) insulin pen (5 sources) Start: 03-21-2021 Insulin Glargi ne U-300 Conc (Toujeo Solostar U-300 Insulin) 300 unit/mL (1.5 mL) insulin pen Active 20 U SC WITH BREAKFAST March 21, 2021 10:55am diabetes Start: 03-21-2021 Insulin Glargi ne U-300 Conc [...] EA, 3 Refill(s), 3 mL PEN, Pharmacy: [facility] - [id number], 158.5, cm, 10/15/24 15:01:00 EDT, Height, kg, 01/12/24 15:01:00 EDT, Dosing Weight Start Date: 01/12/24 Status: Ordered Start: 12-17-2023 Insulin Lispro (Humalog Kwikpen Insulin) 100 unit/mL Insulin Pen Active 0 U SC BEFORE MEALS AND AT BEDTIME 0 0 December 17, 2023 12:00am Please contact the information source for Protocol details. Start: 12-09-2022 inject 1 dose by sub cutaneous injection at lunch HumaLOG KwikPen 100 units/mL injectable PEN Dose : 5 unit(s) =, Subcutaneous, with lunch, # 1 EA, 3 Refill(s), 3 mL PEN, Pharmacy: [facility] - [id number], 154.9, cm, 11/18/22 8:18:00 EDT, Height, kg, 11/18/22 8:18:00 EDT, Dosing Weight Start Date: 12/09/22 Status: Ordered Start: 06-25-2022 HumaLOG KwikPe n 100 units/mL injectable PEN Dose : 5 unit(s) =, Subcutaneous, BIDAC, # 1 EA, 3 Refill(s), 3 mL PEN, Pharmacy: [facility] [place] [id number], 160, cm, 05/28/22 14:54:00 EST, Height Start Date: 06/25/22 Status: Ordered Start: 12-25-2021 HumaLOG KwikPe n 100 units/mL injectable PEN Dose : 5 unit(s) =, Subcutaneous, BIDAC, rotate injection sites, # 9 mL, 3 Refill(s), Pharmacy: [facility] [place] [id number], 160, cm, 12/13/21 17:24:00 EDT, Height, kg, 12/14/21 15:31:00 EDT, Dosing Weight Start Date: 12/25/21 Status: Ordered Start: 10-01-2021 HumaLOG KwikPe n 100 units/mL injectable PEN Dose : 5 unit(s) =, Subcutaneous, BIDAC, # 15 mL, 6 Refill(s), Pharmacy: [facility] 39, 159.8, cm, 09/02/21 13:54:00 EDT, Height, [...] pen Insulin) 100 UNIT/ML Insuln.Pen Discontinued 0 U SQ AC, HS, & 3am 0 May 20, 2018 1:00am May 20, 2018 10:40pm Please contact the information source for Protocol details. Start: 05-18-2018 End: 05-20-2018 Insulin Lispro (Humalog Kwik pen Insulin) 100 UNIT/ML Insuln.Pen Discontinued 0 UNIT SQ AC, HS, & 3am May 20, 2018 1:00am May 20, 2018 10:40pm Start: 01-09-2018 End: 01-13-2018 Insulin Lispro (Humalog Kwik pen) 100 UNIT/ML Insuln.Pen Discontinued 0 U SQ THREE TIMES A DAY January 09, 2018 12:00am January 13, 2018 11:41am DIABETES sliding scale Start: 01-09-2018 End: 01-13-2018 Insulin Lispro (Humalog Kwik pen) 100 UNIT/ML Insuln.Pen Discontinued 0 UNITS SQ THREE TIMES A DAY January 09, 2018 12:00am January 13, 2018 11:41am sliding scale Start: 12-24-2011 HUMALOG KWIKPE N 100 unit/mL InPn lactobacillus acidophilus [id number] unt oral capsule (2 sources) Start: 08-09-2020 take 1 capsule by mouth once daily Acidophilus Probiotic Blend oral capsule Dose = 1 cap(s), Oral, qDay, # 100 cap(s), 3 Refill(s), Pharmacy: [facility], 160, cm, 08/09/20 9:31:00 EDT, Height, kg, 08/09/20 9:31:00 EDT, Dosing Weight Start Date: 08/09/20 Status: Ordered latanoprost 0.05 mg/ml ophthalmic solution (2 sources) Prostaglandin Analog Start: 07-31-2024 Latanoprost 0.005 % drops Active 1 NMA OPHTHALMIC AT BEDTIME July 31, 2024 12:00am melatonin 5 mg oral tablet (20 sources) Start: 09-02-2021 End: 05-05-2022 melatonin 10 mg oral tablet Dose : 10 mg = 1 tab(s), Oral, qHS, PRN as needed for insomnia, X 30 day(s), # 30 tab(s), 1 Refill(s), 05/05/22 17:37:00 EST, Pharmacy: [place] [id number], 155, cm, 02/25/22 9:38:00 EST, Height, kg, 02/25/22 9:38:00 EST, Dosing Weight Start Date: 03/06/22 Stop Date: 05/05/22 Status: Ordered Start: 08-24-2018 melatonin 5 mg oral tablet Dose : 5 mg = 1 tab(s), Oral, qHS, PRN as needed for insomnia, # 60 tab(s), 0 Refill(s) Start Date: 07/17/22 Status: Ordered Medication Dispense Status: Completed Quantity: 60.0 Unit: tab(s) Total Allowed Fills: 1 Fills Dispensed: 0 metFORMIN hydrochloride 500 mg oral tablet (1 [...] 0 Refill(s) Start Date: 10/29/21 Status: Ordered Medication Dispense Status: Completed Quantity: 90.0 Unit: tab(s) Total Allowed Fills: 1 Fills Dispensed: 0 Start: 10-29-2021 take 1 tablet by castro [...] topical powder (20 sources) Polyene Antifungal Start: 11-21-2023 apply 1 dose topically twice daily nystatin 100,000 units/g topical powder Apply 1 toby, Topical, BID, # 56.7 gram(s), 0 Refill(s), Powder, 105.7 Start Date: 12/28/23 Status: Ordered Medication Dispense Status: Completed Quantity: 56.7 Unit: g Total Allowed Fills: 1 Fills Dispensed: 0 Start: 01-25-2021 End: 07-12-2022 Nystatin ([facility]) 100,000 un it/gram Powder Discontinued 1 NMA TOPICAL TWICE A DAY 0 0 January 25, 2021 12:00am July 12, 2022 3:34pm Please contact the information source for Protocol details. Start: 05-20-2018 End: 09-24-2018 Nystatin 1 APPLIC bottle Dis continued 1 NMA TOPICAL TWICE DAILY NEEDED as needed for YEAST July 15, 2018 3:15pm September 24, 2018 10:25am Please contact the information source for Protocol details. omeprazole 40 mg oral tablet (1 source) Proton Pump Inhibitor take 40 mg by mouth once daily OMEPRAZOLE (PRILOSEC ORAL) Take 40 mg by mouth once daily. 0 Active ondansetron 4 mg disintegrating oral tablet (20 sources) Serotonin-3 Receptor Antagonist Start: 11-09-19 End: 11-15-19 ondansetron 4 mg oral tablet, disintegrating Dose : 4 mg = 1 tab(s), Oral, q6h, PRN Nausea/Vomiting, # 20 tab(s), 0 Refill(s), 11/14/24 6:49:00 AM EDT Start Date: 11/08/24 Stop Date: 11/14/24 Status: Ordered Medication Dispense Status: Completed Quantity: 20.0 Unit: tab(s) Total Allowed Fills: 1 Fills Dispensed: 0 Start: 07-31-2024 End: 08-14-2024 take 1 tablet by mouth every six hours as needed for nausea and vomiting Ondansetron 4 mg tablet,disintegrating Active 4 mg PO EVERY 6 HOURS NEEDED as needed for nausea and vomiting July 31, 2024 12:00am Start: 08-29-2022 End: 09-01-2022 ondansetron 4 mg [...] tab(s), 0 Refill(s), 12/16/21 13:18:00 EDT, Pharmacy: [place] [id number], Nausea and vomiting in adult, 155, cm, 12/11/21 12:46:00 EDT, Height Start Date: 12/11/21 Stop Date: 12/16/21 Status: Ordered Start: 07-16-2018 ondansetron 4 mg oral tablet Dose : 4 mg = 1 tab(s), Oral, q8h, PRN Nausea, 0 Refill(s) Start Date: 07/16/18 Status: Ordered Start: 05-20-2018 End: 06-04-2018 take 4 mg by mouth every eight hours as needed for nausea Ondansetron Hcl (Pf) 4 MG/2 ML Vial Discontinued 4 mg PO EVERY 8 HOURS NEEDED as needed for NAUSEA May 20, 2018 10:40pm June 04, 2018 1:02pm Start: 05-20-2018 End: 05-20-2018 take 4 mg intravenously every eight hours as needed for nausea Ondansetron Hcl (Pf) 4 MG/2 ML Vial Discontinued 4 mg IV EVERY 8 HOURS NEEDED as needed for NAUSEA 0 May 20, 2018 1:00am May 20, 2018 10:40pm Pen needles 5 mm (14 sources) Start: 12-21-2022 Pen needles 5 mm See Instructions, qs for 1 month supply, # 1 EA, 11 Refill(s), Pharmacy: [place] [id number], 154.9, cm, 11/18/22 8:18:00 EDT, Height, 101, kg, 11/18/22 8:18:00 EDT, Dosing Weight Start Date: 12/21/22 Status: Ordered Medication Dispense Status: Completed Quantity: 1.0 Unit: EA Total Allowed Fills: 12 Fills Dispensed: 0 Start: 12-21-2022 Pen needles 5 mm See Instructions, qs for 1 month supply, # 1 EA, 11 Refill(s), Pharmacy: [place] [id number], 154.9, cm, 11/18/22 8:18:00 EDT, Height, 101, kg, 11/18/22 8:18:00 EDT, Dosing Weight Start Date: 12/21/22 Status: Ordered Quantity: 1.0 Unit: EA Repeat number: 12 Start: 12-21-2022 Pen needles 5 mm See Instructions, qs for 1 month supply, # 1 EA, 11 Refill(s), Pharmacy: [place] [id number], 154.9, cm, 11/18/22 8:18:00 EDT, Height, 101, kg, 11/18/22 8:18:00 EDT, Dosing Weight Start Date: 12/21/22 Status: Ordered predniSONE 10 mg oral tablet (20 sources) Start: 01-02-2025 End: 01-14-2025 prednisone 10mg tab (TAPER) Taper 40-30-20-10 x 3 days each dose, Oral, qDay, Take with food/meal, # 30 tab(s), 0 Refill(s), Pharmacy: [place] [id number], 155, cm, 01/01/25 4:45:00 EDT, Height, kg, 01/01/25 4:45:00 EDT, Dosing Weight Start Date: 01/02/25 Stop Date: 01/14/25 Status: Ordered Medication Dispense Status: Completed Quantity: 30.0 Unit: tab(s) Total Allowed Fills: 1 Fills Dispensed: 0 Start: 11-21-2023 End: 12-14-2023 Prednisone 10 mg tablet Disc ontinued 0 mg PO DAILY 30 0 November 21, 2023 12:00am December 14, 2023 7:59am Acute respiratory failure with hypoxemia Bilateral pneumonia Acute exacerbation of chronic obstructive pulmonary disease Acute respiratory failure with hypoxia Pneumonia, unspecified organism Chronic obstructive pulmonary disease with (acute) exacerbation Please contact the information source for Taper Schedule details. Start: 01-20-2023 End: 01-26-2023 prednisone 10mg tab (TAPER) Taper 67-95-06-30-20-10 x 1 day, Oral, qAM, # 21 tab(s), 0 Refill(s), Pharmacy: [place] [id number], Poison sekou, 157.5, cm, 01/20/23 14:38:00 EDT, Height, kg, 01/20/23 14:38:00 EDT, Dosing Weight Start Date: 01/20/23 Stop Date: 01/26/23 Status: Ordered Start: 01-13-2018 End: 05-20-2018 take 1 tablet by mouth once daily Prednisone 10 MG tablet Discontinued 10 mg PO DAILY May 18, 2018 10:03pm May 20, 2018 1:56pm Alok Caps (11 sources) Start: 12-28-2023 take 1 capsule by [facility] once daily Alok Caps Dose = 1 cap(s), Oral, qDay, 0 Refill(s) Start Date: 12/28/23 Status: Ordered Medication Dispense Status: Completed Total Allowed Fills: 1 Fills Dispensed: 0 Start: 12-28-2023 take 1 capsule by mo uth once daily Potter Caps Dose = 1 cap(s), Oral, qDay, 0 Refill(s) Start Date: 12/28/23 Status: Ordered Repeat number: 1 Start: 12-28-2023 take 1 capsule by mo uth once daily Potter Caps Dose = 1 cap(s), Oral, qDay, 0 Refill(s) Start Date: 12/28/23 Status: Ordered rOPINIRole 0.25 mg oral tablet (7 sources) Nonergot Dopamine Agonist Start: 11-09-2024 rOPINIRole 0.25 mg oral tablet Dose : 0.25 mg = 1 tab(s), Oral, BID, # 270 tab(s), 0 Refill(s) Start Date: 11/09/24 Status: Ordered Medication Dispense Status: Completed Quantity: 270.0 Unit: tab(s) Total Allowed Fills: 1 Fills Dispensed: 0 Start: 10-09-2024 take 1 tablet by castro twice daily Ropinirole 0.25 mg tablet Active 0.25 mg PO TWICE A DAY October 09, 2024 12:00am torsemide 100 mg oral tablet (20 sources) Loop Diuretic Start: 08-16-2024 torsemide 100 mg oral tablet Dose : 50 mg = 0.5 tab(s), Oral, BID, # 30 tab(s), 5 Refill(s), Pharmacy: [place] [id number], 155, cm, 08/16/24 11:12:00 EDT, Height, kg, 08/16/24 11:12:00 EDT, Dosing Weight Start Date: 08/16/24 Status: Ordered Medication Dispense Status: Completed Quantity: 30.0 Unit: tab(s) Total Allowed Fills: 6 Fills Dispensed: 0 Start: 12-28-2023 torsemide 100 mg oral tablet [...] BID, # 90 tab(s), 3 Refill(s), Pharmacy: [facility] 39, 160, cm, 08/09/20 9:31:00 EDT, Height, kg, 08/09/20 9:31:00 EDT, Dosing Weight Start Date: 09/11/20 Stop Date: 09/06/21 Status: Ordered Start: 04-14-2019 Torsemide 100 mg tablet Active 50 mg PO TWICE A DAY April 14, 2019 1:00am diuretic Start: 04-14-2019 take 50 mg by mouth twice marleny y Torsemide Active 50 MG PO TWICE A DAY April 14, 2019 1:00am Toucésar Max SoloStar 300 units/mL subcutaneous solution (2 sources) Start: 11-05-2020 End: 05-04-2021 inject 1 dose by subcutaneous injection once daily Toujeo Max SoloStar 300 units/mL subcutaneous solution Dose : 22 unit(s) =, Subcutaneous, qDay, rotate injection sites, # 7 mL, 1 Refill(s), Pharmacy: [facility] 39, 168, cm, 10/11/20 14:11:00 EDT, Height, kg, 10/11/20 14:11:00 EDT, Dosing Weight Start Date: 11/05/20 Stop Date: 05/04/21 Status: Ordered triamcinolone acetonide 5 mg/ml topical cream (1 source) Corticosteroid Start: 08-16-2024 End: 08-30-2024 triamcinolone 0.5% topical cream Apply 1 toby, Topical, BID, X 14 day(s), # 30 gram(s), 0 Refill(s), Pharmacy: [facility] [id number], Cream, 155, cm, 08/16/24 11:12:00 EDT, Height, 111, kg, 08/16/24 11:12:00 EDT, Dosing Weight Start Date: 08/16/24 Stop Date: 08/30/24 Status: Ordered Quantity: 30.0 Unit: g Repeat number: 1 24 HR venlafaxine 112.5 MG Extended Release Oral Tablet (10 sources) Serotonin and Norepinephrine Reuptake Inhibitor Start: 01-17-2025 venlafaxine 112.5 mg oral tablet, extended release Dose : 112.5 mg = 1 tab(s), Oral, qDay, with food, # 30 tab(s), 4 Refill(s), Pharmacy: [facility] [id number], 155, cm, 01/11/25 15:03:00 EDT, Height, kg, 01/11/25 14:58:00 EDT, Dosing Weight Start Date: 01/17/25 Status: Ordered Medication Dispense Status: Completed Quantity: 30.0 Unit: tab(s) Total Allowed Fills: 5 Fills Dispensed: 0 Start: 09-11-2024 venlafaxine 11 2.5 mg oral tablet, extended release Dose : 112.5 mg = 1 tab(s), Oral, qDay, with food, # 30 tab(s), 3 Refill(s), Pharmacy: [place] [id number], 155, cm, 08/16/24 11:12:00 EDT, Height, kg, 08/16/24 11:12:00 EDT, Dosing Weight Start Date: 09/11/24 Status: Ordered Medication Dispense Status: Completed Quantity: 30.0 Unit: tab(s) Total Allowed Fills: 4 Fills Dispensed: 0 Start: 09-11-2024 venlafaxine 11 2.5 mg oral tablet, extended release Dose : 112.5 mg = 1 tab(s), Oral, qDay, with food, # 30 tab(s), 3 Refill(s), Pharmacy: [place] [id number], 155, cm, 08/16/24 11:12:00 EDT, Height, kg, 08/16/24 11:12:00 EDT, Dosing Weight Start Date: 09/11/24 Status: Ordered Quantity: 30.0 Unit: tab(s) Repeat number: 4 Start: 12-30-2023 venlafaxine 75 mg oral capsule, extended release Dose : 75 mg = 1 cap(s), Oral, qDay, # 30 cap(s), 3 Refill(s), Pharmacy: [place] [id number], 158, cm, 12/21/23 12:59:00 EDT, Height, kg, 12/21/23 12:59:00 EDT, Dosing Weight Start Date: 12/30/23 Status: Ordered Start: 09-07-2023 venlafaxine 75 mg oral capsule, extended release Dose : 75 mg = 1 cap(s), Oral, qDay, # 30 cap(s), 3 Refill(s), Pharmacy: [place] [id number], 159, cm, 06/03/23 13:51:00 EST, Height, kg, 06/08/23 16:20:00 EDT, Dosing Weight Start Date: 09/07/23 Status: Ordered Start: 06-03-2023 venlafaxine 75 mg oral capsule, extended release Dose : 75 mg = 1 cap(s), Oral, qDay, # 30 cap(s), 3 Refill(s), Pharmacy: [place] [id number], 159, cm, 06/03/23 13:51:00 EST, Height, kg, 06/03/23 13:51:00 EST, Dosing Weight Start Date: 06/03/23 Status: Ordered Start: 04-29-2023 venlafaxine 37 .5 mg oral capsule, extended release Dose : 37.5 mg = 1 cap(s), Oral, qDay, # 30 cap(s), 1 Refill(s), Pharmacy: [place] [id number], 157.5, cm, 04/29/23 14:30:00 EST, Height, kg, 04/29/23 14:30:00 EST, Dosing Weight Start Date: 04/29/23 Status: Ordered Venlafaxine Besylate (2 sources) Start: 07-31-2024 take 1 tablet by mouth once daily Venlafaxine Besylate 112.5 mg tablet extended release 24hr Active 112.5 mg PO DAILY July 31, 2024 12:00am Vitamin D (20 sources) Start: 07-31-2021 Vitamin D Shagufta min D, 0 Refill(s), 104.4 Start Date: 07/31/21 Status: Ordered Start: 01-09-2018 End: 05-20-2018 take 4000 [IU] by mouth twice daily Vitamin D Discontinued 4000 U PO TWICE A DAY January 09, 2018 12:00am May 20, 2018 1:56pm SUPPLEMENT Start: 01-09-2018 End: 05-20-2018 take 4000 [IU] [...] intl units) oral capsule (20 sources) Start: 11-07-2024 Vitamin D3 50 mcg (2000 intl units) oral capsule Dose : 50 mcg = 1 tab(s), Oral, Daily, # 30 cap(s), 11 Refill(s), Pharmacy: [place] [id number], 155, cm, 10/26/24 15:06:00 EDT, Height, kg, 10/26/24 15:06:00 EDT, Dosing Weight Start Date: 11/07/24 Status: Ordered Medication Dispense Status: Completed Quantity: 30.0 Unit: cap(s) Total Allowed Fills: 12 Fills Dispensed: 0 Start: 12-02-2023 Vitamin D3 50 mcg (2000 intl units) oral capsule Dose : 50 mcg = 1 tab(s), Oral, Daily, # 30 cap(s), 11 Refill(s), Pharmacy: [place] [id number], 155, cm, 10/27/23 15:18:00 EDT, Height, kg, 10/27/23 15:18:00 EDT, Dosing Weight Start Date: 12/02/23 Status: Ordered Quantity: 30.0 Unit: cap(s) Repeat number: 12 Start: 12-02-2023 Vitamin D3 50 mcg (2000 intl units) oral capsule Dose : 50 mcg = 1 tab(s), Oral, Daily, # 30 cap(s), 11 Refill(s), Pharmacy: [place] [id number], 155, cm, 10/27/23 15:18:00 EDT, Height, kg, 10/27/23 15:18:00 EDT, Dosing Weight Start Date: 12/02/23 Status: Ordered Start: 01-05-2023 Vitamin D3 50 mcg (2000 intl units) oral capsule Dose : 50 mcg = 1 tab(s), Oral, Daily, # 30 cap(s), 11 Refill(s), Pharmacy: [place] [id number], 157.5, cm, 12/30/22 14:30:00 EDT, Height, kg, 12/30/22 14:30:00 EDT, Dosing Weight Start Date: 01/05/23 Status: Ordered Start: 01-21-2022 Vitamin D3 50 mcg (2000 intl units) oral capsule Dose : 50 mcg = 1 tab(s), Oral, Daily, # 30 cap(s), 11 Refill(s), Pharmacy: [place] [id number], 159, cm, 01/21/22 15:18:00 EDT, Height, kg, [...] 10, 2022 12:00am Start: 03-28-2021 End: 05-01-2021 Hydrocodone-Acetaminophen 5- 325 mg tablet Discontinued 1 {tbl} PO Q8H as needed for pain 6 2 0 March 28, 2021 May 01, 2021 10:49am Chronic kidney disease Chronic kidney disease, unspecified Start: 03-28-2021 End: 05-01-2021 take 1 tablet by mouth every eight hours Hydrocodone-Acetaminophen Discontinued 1 TABLET PO Q8H 6 2 March 28, 2021 May 01, 2021 10:49am Start: 11-27-2019 End: 08-03-2020 Hydrocodone-Acetaminophen 1 EACH tablet Discontinued 1 {tbl} PO Q8H as needed for Pain Or Fever November 27, 2019 12:00am August 03, 2020 1:18pm Start: 11-27-2019 End: 08-03-2020 take 1 tablet by mouth every eight hours Hydrocodone-Acetaminophen Discontinued 1 TABLET PO Q8H November 27, 2019 12:00am August 03, 2020 1:18pm Start: 05-05-2019 End: 05-10-2019 Hydrocodone-Acetaminophen 1 EACH tablet Discontinued 1 - 2 {tbl} PO EVERY 6 HOURS as needed for Pain Score 4-10/10 20 5 0 May 05, 2019 May 09, 2019 1:00am May 10, 2019 1:08am History of cholelithiasis Personal history of other diseases of the digestive system Start: 05-05-2019 End: 05-10-2019 take 1 tablet by mouth every six hours Hydrocodone-Acetaminophen Discontinued 1 - 2 TABLET PO EVERY 6 HOURS 20 5 May 05, 2019 May 10, 2019 1:08am Start: 04-04-2019 End: 04-07-2019 Hydrocodone-Acetaminophen 1 TABLET tablet Discontinued 1 {tbl} PO EVERY 6 HOURS NEEDED as needed for Pain 10 3 0 April 04, 2019 April 06, 2019 1:00am April 07, 2019 1:08am Cholelithiasis Biliary colic Calculus of gallbladder without cholecystitis without obstruction Calculus of bile duct without cholangitis or cholecystitis without obstruction Start: 04-04-2019 End: 04-07-2019 take 1 tablet by mouth every six hours as needed Hydrocodone-Acetaminophen Discontinued 1 TABLET PO EVERY 6 HOURS NEEDED 10 3 April 04, 2019 April 07, 2019 1:08am Start: 08-04-2018 End: 09-24-2018 Hydrocodone-Acetaminophen 1 EACH tablet Discontinued 1 {tbl} PO DAILY as needed for Pain August 04, 2018 12:00am September 24, 2018 10:24am Start: 08-04-2018 End: 09-24-2018 take 1 tablet by mouth once daily Hydrocodone-Acetaminophen Discontinued 1 TABLET PO DAILY August 04, 2018 12:00am September 24, 2018 10:24am Start: 01-09-2018 End: 06-04-2018 Hydrocodone-Acetaminophen 1 TABLET tablet Discontinued 1 {tbl} PO EVERY 12 HOURS NEEDED as needed for Pain January 09, 2018 12:00am June 04, 2018 1:03pm Start: 01-09-2018 End: 06-04-2018 take 1 tablet by mouth every twelve hours as needed Hydrocodone-Acetaminophen Discontinued 1 TABLET PO EVERY 12 HOURS NEEDED January 09, 2018 12:00am June 04, 2018 1:03pm albuterol 0.83 mg/ml inhalation solution (10 sources) beta2-Adrenergic Agonist Start: 05-20-2018 End: 06-04-2018 take 2.5 mg by inhalation every two hours as needed Albuterol Sulfate 2.5 MG/3 ML Vial.Neb. Discontinued 2.5 mg INHALATION EVERY 2 HOURS NEEDED as needed for SHORTNESS OF BREATH 0 May 20, 2018 1:00am June 04, 2018 1:00pm ALPRAZolam 1 mg oral tablet (5 sources) Benzodiazepine Start: 04-15-2023 End: 11-19-2023 take 1 tablet by mouth once Alprazolam (Xanax) 1 mg tablet Discontinued 1 mg PO ONCE 1 0 April 15, 2023 1:00am November 19, 2023 10:40am take prior to leaving home for surgery for fistula creation amoxicillin 500 mg / clavulanate 125 mg oral tablet (20 sources) Penicillin-class Antibacterial Start: 11-22-2024 End: 12-02-2024 take 1 tablet by mouth every twelve hours amoxicillin-clavu lanate 500 mg-125 mg oral tablet 1 tab(s), Oral, q12h, # 20 tab(s), 0 Refill(s), 110.9 Start Date: 11/22/24 Stop Date: 12/02/24 Status: Ordered Medication Dispense Status: Completed Quantity: 20.0 Unit: tab(s) Total Allowed Fills: 1 Fills Dispensed: 0 Start: 11-11-2024 End: 11-18-2024 take 1 tablet by mouth every twelve hours amoxicillin-clavulanate 500 mg-125 mg or al tablet 1 tab(s), Oral, q12h, X 7 day(s), # 14 tab(s), 0 Refill(s), 11/18/24 2:14:00 PM EDT, Pharmacy: [place] [id number], 155, cm, 10/26/24 15:06:00 EDT, Height, 107, kg, 11/10/24 13:22:00 EDT, Dosing Weight Start Date: 11/11/24 Stop Date: 11/18/24 Status: Ordered Medication Dispense Status: Completed Quantity: 14.0 Unit: tab(s) Total Allowed Fills: 1 Fills Dispensed: 0 Start: 10-11-2024 Amoxicillin-Po t Clavulanate (Augmentin) 500-125 mg tablet Active 1 {tbl} PO TWICE A DAY 10 October 11, 2024 12:00am Start: 11-21-2023 End: 12-14-2023 Amoxicillin-Pot Clavulanate 875-125 mg tablet Discontinued 1 {tbl} PO TWICE A DAY 10 5 0 November 21, 2023 12:00am December 14, 2023 7:57am Acute exacerbation of chronic obstructive pulmonary disease Bilateral pneumonia Acute respiratory failure with hypoxemia Chronic obstructive pulmonary disease with (acute) exacerbation Pneumonia, unspecified organism Acute respiratory failure with hypoxia Pneumonia Start: 05-18-2018 End: 06-04-2018 Amoxicillin-Pot Clavulanate (Augmentin) 1 EACH tablet Discontinued 1 {tbl} PO TWICE A DAY May 20, 2018 10:40pm June 04, 2018 1:02pm infection atenolol 100 mg oral tablet (10 sources) beta-Adrenergic Ángela Start: 01-09-2018 End: 05-20-2018 take 1 tablet by mouth once daily Atenolol (Tenormin) 100 MG tablet Discontinued 100 mg PO DAILY January 09, 2018 12:00am May 20, 2018 2:19pm BLOOD PRESSURE azithromycin 250 mg oral tablet (2 sources) Macrolide Antimicrobial Start: 11-21-2023 End: 12-14-2023 take 2 tablets by mouth every twenty-four hours Azithromycin 250 mg Tablet Discontinued 500 mg PO EVERY 24 HOURS 6 3 0 November 21, 2023 12:00am December 14, 2023 7:57am B Complex And C 20-Folic Acid (Potter Caps) 1 mg capsule (2 sources) Start: 01-13-2023 End: 07-31-2024 B Complex And C 20-Folic Acid (Potter Caps) 1 mg capsule Discontinued 1 NMA PO DAILY January 13, 2023 12:00am July 31, 2024 6:48pm cefdinir 300 mg oral capsule (14 sources) Cephalosporin Antibacterial Start: 08-04-2024 End: 10-09-2024 take 1 capsule by mouth every other day Cefdinir 300 mg capsule Discontinued 300 mg PO EVERY OTHER DAY 7 0 August 04, 2024 12:00am October 09, 2024 8:55am If taken on a dialysis day, please take after dialysis Start: 12-17-2023 End: 07-31-2024 take 1 capsule by mouth twice daily Cefdinir 300 mg capsule Discontinued 300 mg PO TWICE A DAY 10 5 0 December 17, 2023 12:00am July 31, 2024 6:46pm Start: 07-15-2022 End: 07-23-2022 Cefdinir 300 mg capsule Disc ontinued 300 mg PO Q48H 2 0 July 15, 2022 12:00am July 23, 2022 4:00pm Take cefdinir after hemodialysis on days of dialysis. cloNIDine hydrochloride 0.1 mg oral tablet (10 sources) Central alpha-2 Adrenergic Agonist Start: 05-18-2018 End: 06-04-2018 take 1 tablet by mouth twice daily Clonidine Hcl 0.1 MG tablet Discontinued 0.1 mg PO TWICE A DAY May 18, 2018 1:00am June 04, 2018 1:02pm clopidogrel 75 mg oral tablet (20 sources) [id number] Platelet Inhibitor Start: 09-24-2018 End: 04-14-2019 take 1 tablet by mouth once daily Clopidogrel 75 mg tablet Discontinued 75 mg PO DAILY September 24, 2018 12:00am April 14, 2019 2:10pm Start: 01-09-2018 End: 06-04-2018 take 1 tablet by mouth once daily Clopidogrel 75 MG tablet Discontinued 75 mg PO DAILY January 09, 2018 12:00am June 04, 2018 1:02pm BLOOD THINNER dexamethasone 6 mg oral tablet (15 sources) Corticosteroid Start: 12-17-2023 End: 07-31-2024 take 1 tablet by mouth once daily Dexamethasone 6 mg tablet Discontinued 6 mg PO DAILY 6 6 0 December 17, 2023 12:00am July 31, 2024 6:46pm Start: 12-15-2021 End: 2021 dexamethasone 6 mg oral tabl et Dose : 6 mg = 1 tab(s), Oral, qDay, X 7 day(s), # 7 tab(s), 0 Refill(s), 12/22/21 11:17:00 EDT Start Date: 12/15/21 Stop Date: 12/22/21 Status: Ordered Start: 01-23-2021 End: 01-25-2021 take 3 tablets by mouth once daily Dexamethasone 2 mg tablet Discontinued 6 mg PO DAILY January 23, 2021 12:00am January 25, 2021 1:15pm start on 01/24/21 Start: 01-23-2021 End: 01-25-2021 take 6 mg by mouth once daily Dexamethasone Discontinu ed 6 MG PO DAILY January 23, 2021 12:00am January 25, 2021 1:15pm start on 01/24/21 12 hr dextromethorphan hydrobromide 30 mg / guaiFENesin 600 mg extended release oral tablet (10 sources) Uncompetitive Q-hjxzgg-X-aspartate Receptor Antagonist, Sigma-1 Agonist Start: 01-13-2018 End: 06-04-2018 Dextromethorphan-Guaifenesin 1 TABLET tablet extended release 12 hr Discontinued 1 {tbl} PO TWICE A DAY 20 January 13, 2018 12:00am June 04, 2018 1:03pm Start: 01-13-2018 End: 06-04-2018 take 1 tablet by mouth twice daily Dextromethorphan-Guaifenesin Discontinue d 1 TABLET PO TWICE A DAY January 13, 2018 12:00am June 04, 2018 1:03pm 24 hr dilTIAZem hydrochloride 120 mg extended release oral capsule (20 sources) Calcium Channel Ángela Start: 09-24-2018 End: 09-24-2018 take 1 capsule by mouth once daily Diltiazem Hcl 120 mg capsule,extended release 24hr Discontinued 120 mg PO DAILY September 24, 2018 10:24am September 24, 2018 10:50am HEART Start: 07-15-2018 End: 09-24-2018 take 1 capsule by mouth twice daily Diltiazem Hcl 120 MG capsule,extended release 24hr Discontinued 120 mg PO TWICE A DAY July 15, 2018 12:00am September 24, 2018 10:24am HEART docusate sodium 50 mg / sennosides, skilled nursing 8.6 mg oral tablet (2 sources) Start: 12-17-2023 End: 07-31-2024 Sennosides-Docusate Sodium (Stimulant Laxative Plus) 8.6-50 mg Tablet Discontinued 2 {tbl} PO TWICE A DAY as needed for Constipation 0 December 17, 2023 12:00am July 31, 2024 6:47pm DULoxetine 30 mg delayed release oral capsule (20 sources) Serotonin and Norepinephrine Reuptake Inhibitor Start: 08-04-2018 End: 04-14-2019 take 1 capsule by mouth once daily Duloxetine 30 MG capsule Discontinued 30 mg PO DAILY August 04, 2018 12:00am April 14, 2019 2:10pm ANTIDEPRESSENT Start: 05-18-2018 End: 06-04-2018 take 1 capsule by mouth once daily Duloxetine 30 MG capsule Discontinued 30 mg PO DAILY May 18, 2018 1:00am June 04, 2018 1:02pm famotidine 10 mg oral tablet (13 sources) Histamine-2 Receptor Antagonist Start: 03-03-2023 End: 11-19-2023 Famotidine (Acid Controller) 10 mg tablet Discontinued 20 mg PO DAILY March 03, 2023 1:00am November 19, 2023 11:53am Start: 12-15-2021 End: 2021 Pepcid 20 mg oral tablet Dos e : 20 mg = 1 tab(s), Oral, qDay, # 7 tab(s), 0 Refill(s) Start Date: 12/15/21 Stop Date: 12/22/21 Status: Ordered furosemide 40 mg oral tablet (20 sources) Loop Diuretic Start: 05-20-2018 End: 06-04-2018 take 1 tablet by mouth twice daily Furosemide (Lasix) 40 MG tablet Discontinued 40 mg PO TWICE A DAY May 20, 2018 10:40pm June 04, 2018 1:03pm diuretic Start: 01-09-2018 End: 05-20-2018 take 1 tablet by mouth once daily Furosemide 20 MG tablet Discontinued 20 mg PO DAILY January 09, 2018 12:00am May 20, 2018 1:55pm SWELLING heparin sodium, porcine 5000 unt/ml injectable solution (10 sources) Unfractionated Heparin, Anti-coagulant Start: 05-20-2018 End: 06-04-2018 Heparin (Porcine) 5,000 UNIT/ML Vial Discontinued 5000 U SC EVERY 8 HOURS 0 May 20, 2018 1:00am June 04, 2018 1:03pm hydrALAZINE (20 sources) Arteriolar Vasodilator Start: 01-02-2025 End: 01-02-2025 take 1 tablet by mouth in the morning hydrALAZINE Start: 01/02/25 9:00:00 AM EDT, Dose = 100 mg, = 2 tab(s), Oral, 01/01/25 8:26:00 EDT Start Date: 01/02/25 Stop Date: 01/02/25 Status: Completed Medication Dispense Status: Completed Total Allowed Fills: 1 Fills Dispensed: 0 Start: 11-22-2024 hydrALAZINE 10 0 mg oral tablet Dose : 100 mg = 1 tab(s), Oral, BID, # 180 tab(s), 0 Refill(s) Start Date: 11/22/24 Status: Ordered Medication Dispense Status: Completed Quantity: 180.0 Unit: tab(s) Total Allowed Fills: 1 Fills Dispensed: 0 Start: 03-28-2024 hydrALAZINE 10 0 mg oral tablet Dose : 100 mg = 1 tab(s), Oral, TID, # 270 tab(s), 3 Refill(s), Pharmacy: [facility] [id number], 158, cm, 02/10/24 8:25:00 EST, Height, kg, 02/10/24 8:24:00 EST, Dosing Weight Start Date: 03/28/24 Status: Ordered Medication Dispense Status: Completed Quantity: 270.0 Unit: tab(s) Total Allowed Fills: 4 Fills Dispensed: 0 Start: 12-17-2023 Hydralazine 10 0 mg tablet Active 100 mg PO THREE TIMES A DAY 0 30 0 December 17, 2023 12:47pm Hold for SBP less than 130 mmHg Start: 12-15-2021 End: 12-15-2021 hydrALAZINE Start: 12/15/21 16:00:00 EDT, Dose = 100 mg, = 2 tab(s), Oral, 12/13/21 19:48:00 EDT Start Date: 12/15/21 Stop Date: 12/15/21 Status: Completed Start: 02-14-2020 hydrALAZINE HC l - 100 MG Oral Tablet Quantity: 90 Refills: 0 Ordered: 13-Dec-2020 DO Start : 14-Feb-2020 Active Start: 02-14-2020 End: 12-17-2023 take 1 tablet by mouth three times daily Hydralazine 100 mg tablet Discontinued 100 mg PO THREE TIMES A DAY January 13, 2023 12:00am December 17, 2023 12:47pm Start: 05-04-2019 End: 08-03-2020 take 4 tablets by mouth twice daily Hydralazine 25 MG tablet Discontinued 100 mg PO TWICE A DAY May 04, 2019 1:00am August 03, 2020 1:14pm bp Start: 05-04-2019 End: 08-03-2020 take 100 mg by mouth twice daily Hydralazine Discontinued 100 MG PO TWICE A DAY May 04, 2019 1:00am August 03, 2020 1:14pm Start: 05-20-2018 End: 05-20-2018 take 1 tablet by mouth three times daily Hydralazine 25 MG tablet Discontinued 25 mg PO THREE TIMES A DAY 0 May 20, 2018 1:00am May 20, 2018 10:40pm hydroCHLOROthiazide 25 mg oral tablet (10 sources) Thiazide Diuretic Start: 05-18-2018 End: 05-20-2018 take 1 tablet by mouth once daily Hydrochlorothiazide 25 MG tablet Discontinued 25 mg PO DAILY May 18, 2018 1:00am May 20, 2018 1:54pm Levemir FlexPen (10 sources) Start: 01-09-2018 End: 01-13-2018 inject 80 [IU] by subcutaneous injection twice daily Levemir FlexPen Discontinued 80 U SQ TWICE A DAY January 09, 2018 12:00am January 13, 2018 11:41am DIABETES Start: 01-09-2018 End: 01-13-2018 inject 80 [IU] by subcutaneous injection twice daily Levemir FlexPen Discontinued 80 UNITS SQ TWICE A DAY January 08, 2018 11:00pm January 13, 2018 10:41am Start: 01-09-2018 End: 01-13-2018 inject 80 [IU] by subcutaneous injection twice daily Levemir FlexPen Discontinued 80 UNITS SQ TWICE A DAY January 09, 2018 12:00am January 13, 2018 11:41am levoFLOXacin 250 mg oral tablet (10 sources) Quinolone Antimicrobial Start: 01-13-2018 End: 05-20-2018 take 1 tablet by mouth once daily Levofloxacin 250 MG tablet Discontinued 250 mg PO DAILY@0600 4 0 January 13, 2018 12:00am May 20, 2018 1:56pm lidocaine 25 mg/ml / prilocaine 25 mg/ml topical cream (3 sources) Antiarrhythmic, Amide Local Anesthetic Start: 11-09-2024 lidocaine-prilocai ne 2.5%-2.5% topical cream Apply 1 toby, Topical, Once, Once before dialysis, 0 Refill(s), 112.8 Start Date: 11/09/24 Status: Ordered Medication Dispense Status: Completed Total Allowed Fills: 1 Fills Dispensed: 0 Start: 07-12-2021 Lidocaine-Pril ocaine 2.5-2.5 % External Cream Quantity: 30 Refills: 0 Ordered: 30-May-2022 DO Start : 12-Jul-2021 Active lisinopril 40 mg oral tablet (20 sources) Angiotensin Converting Enzyme Inhibitor Start: 05-20-2018 End: 05-20-2018 Lisinopril (Zestril) 40 MG tablet Discontinued 20 mg PO TWICE A DAY 0 0 May 20, 2018 2:01pm May 20, 2018 2:20pm Start: 05-18-2018 End: 05-20-2018 take 1 tablet by mouth twice daily Lisinopril (Zestril) 40 MG tablet Discontinued 40 mg PO TWICE A DAY May 18, 2018 1:00am May 20, 2018 2:01pm Start: 01-13-2018 End: 05-20-2018 take 1 tablet by mouth once daily Lisinopril 20 MG tablet Discontinued 20 mg PO DAILY 30 0 January 13, 2018 12:00am May 20, 2018 1:56pm Start: 01-09-2018 End: 01-13-2018 take 2 tablets by mouth twice daily Lisinopril (Zestril) 40 MG tablet Discontinued 80 mg PO TWICE A DAY January 09, 2018 12:00am January 13, 2018 11:45am BLOOD PRESSURE take 1 tablet by castro th once daily lisinopril 40 mg tablet Take 40 mg by mouth once daily. 0 Active lovastatin 40 mg oral tablet (10 sources) HMG-CoA Reductase Inhibitor Start: 01-09-2018 End: 05-20-2018 take 1 tablet by mouth once daily Lovastatin (Mevacor) 40 MG tablet Discontinued 40 mg PO DAILY January 09, 2018 12:00am May 20, 2018 2:20pm CHOLESTEROL mupirocin 0.02 mg/mg topical ointment (10 sources) RNA Synthetase Inhibitor Antibacterial Start: 05-20-2018 End: 06-04-2018 Mupirocin 1 APPLIC Tube Discontinued 1 NMA TOPICAL TWICE A DAY 0 May 20, 2018 1:00am June 04, 2018 1:03pm Please contact the information source for Protocol details. Start: 05-20-2018 End: 06-04-2018 Mupirocin Discontinued 1 TOBY LIC TOPICAL TWICE A DAY May 20, 2018 1:00am June 04, 2018 1:03pm oxyCODONE hydrochloride 5 mg oral tablet (5 sources) Opioid Agonist Start: 04-27-2023 End: 11-19-2023 take 1 tablet by mouth every eight hours as needed for pain Oxycodone 5 mg tablet Discontinued 5 mg PO Q8H as needed for pain 9 3 0 April 27, 2023 November 19, 2023 10:41am End stage renal failure on dialysis End stage renal disease Dependence on renal dialysis pantoprazole 20 mg delayed release oral tablet (10 sources) Proton Pump Inhibitor Start: 06-04-2018 End: 08-04-2018 take 1 tablet by mouth once daily Pantoprazole 20 MG tablet Discontinued 20 mg PO DAILY 0 June 04, 2018 1:00am August 04, 2018 5:48pm PARoxetine hydrochloride 30 mg oral tablet (10 sources) Serotonin Reuptake Inhibitor Start: 08-04-2018 End: 09-24-2018 take 1 tablet by mouth once daily Paroxetine Hcl 30 MG tablet Discontinued 30 mg PO DAILY August 04, 2018 12:00am September 24, 2018 10:25am ANTIDEPRESSANT microencapsulated potassium chloride 10 meq extended release oral tablet (20 sources) Start: 01-20-2021 End: 12-10-2022 take 1 tablet by mouth twice daily Potassium Chloride 10 mEq Tablet,Er Particles/Crystals Discontinued 10 meq PO TWICE A DAY January 20, 2021 12:00am December 10, 2022 3:43pm supplement Start: 10-11-2020 potassium chlo ride 10 mEq [...] Ordered: 11-Oct-2020 DO Start : 11-Oct-2020 Active 12 hr ranolazine 500 mg extended release oral tablet (8 sources) Anti-anginal Start: 01-13-2023 End: 11-19-2023 take 1 tablet by mouth once daily Ranolazine 500 mg tablet extended release 12 hr Discontinued 500 mg PO DAILY January 13, 2023 12:00am November 19, 2023 11:53am Start: 08-11-2022 Ranexa 500 mg oral tablet, extended release Dose : 500 mg = 1 tab(s), Oral, BID, # 180 tab(s), 0 Refill(s), Pharmacy: [id number], 155, cm, 08/11/22 6:21:00 EDT, Height Start Date: 08/11/22 Status: Ordered sertraline 50 mg oral tablet (10 sources) Serotonin Reuptake Inhibitor Start: 11-27-2019 End: 08-03-2020 Sertraline 50 MG tablet Discontinued 1 {tbl} PO DAILY November 27, 2019 12:00am August 03, 2020 1:19pm depression Problems Active Problems Problem Classification Problem Date Documented Da te Episodic/Chronic Abdominal pain (2 sources) Abdominal pain; Translations: [Abdominal pain, unspecified site] Episodic Comment on above: Added by Problem Lis henry Migration; 2012-06-28; Moved to [facility] Feb 23 2013 9:11PM; Acquired foot deformities (20 sources) Hammer toe 01-21-2022 Chronic Acute and unspecified renal failure (20 sources) Injury of kidney; Translations: [Acute kidney failure, unspecified] 01-10-2021 Episodic Acute bronchitis (2 sources) Acute bronchitis; Translations: [Acute bronchitis] Episodic Acute cerebrovascular disease (10 sources) Ischemic stroke; Translations: [Cerebral infarction, unspecified] Onset: 9 01-10-2021 Chronic Comment on above: Left MCA stroke 05/19 18 Acute myocardial infarction (2 sources) Myocardial infarction; Translations: [Acute myocardial infarction of unspecified site, episode of care unspecified] Chronic Administrative/social admission (4 sources) Family conflict 12-21-2024 Episodic Anxiety disorders (20 sources) Anxiety; Translations: [Anxiety state, unspecified] Onset: 11-03-2018 Chronic Aortic and peripheral arterial embolism or thrombosis (11 sources) 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 Biliary tract disease (20 sources) Biliary calculus; Translations: [Calculus of gallbladder without mention of cholecystitis, without mention of obstruction] 04-05-2019 Episodic Cardiac dysrhythmias (2 sources) Tachycardia; Translations: [Tachycardia, unspecified] Episodic Chronic kidney disease (20 sources) Chronic kidney disease stage 3; Translations: [Chronic kidney disease stage 4] Onset: 3 01-20-2019 Chronic Chronic obstructive pulmonary disease and bronchiectasis (6 sources) Acute exacerbation of chronic obstructive airways disease; Translations: [Chronic obstructive pulmonary disease with (acute) exacerbation] Onset: 4 12-26-2023 Chronic Complication of device; implant or graft (1 source) Thrombosis; Translations: [Thrombosis due to vascular prosthetic devices, implants and grafts, initial encounter] Onset: 3 Chronic Complication of device; implant or graft (2 sources) Coronary stent stenosis; Translations: [Other complications due to other cardiac device, implant, and graft] Episodic Conduction disorders (2 sources) Atrioventricular block, second degree; Translations: [Left bundle-branch block, unspecified] Onset: 5 Chronic Congestive heart failure; nonhypertensive (20 sources) Congestive heart failure; Translations: [Heart failure with normal ejection fraction] Onset: 3 10-11-2020 Chronic Coronary atherosclerosis and other heart disease (20 sources) Coronary arteriosclerosis; Translations: [History of non-ST segment elevation myocardial infarction] Onset: 1 02-12-2022 Chronic Coronary atherosclerosis and other heart disease (4 sources) Presence of coronary angioplasty implant and graft; Translations: [Percutaneous transluminal coronary angioplasty status] Onset: 7 07-12-2022 Episodic Deficiency and other anemia (4 sources) Anemia of chronic disease; Translations: [Anemia in other chronic diseases classified elsewhere] 08-10-2024 Chronic Deficiency and other anemia (1 source) Anemia in other chronic diseases classified elsewhere; Translations: [Anemia in other chronic diseases classified elsewhere] Onset: 5 Chronic Deficiency and other anemia (1 source) Anemia of chronic renal failure; Translations: [Anemia in chronic kidney disease] Chronic Deficiency and other anemia (1 source) Anemia in chronic kidney disease; Translations: [Anemia in chronic kidney disease] Onset: 5 Chronic Deficiency and other anemia [...] lipid metabolism (20 sources) Hyperlipidemia; Translations: [Hypercholesterolemia] Onset: 5 11-03-2018 Chronic E Codes: Fall (7 sources) Fall 07-09-2022 Esophageal disorders (4 sources) Gastroesophageal reflux disease; Translations: [Esophageal reflux] Chronic Essential hypertension (20 sources) Hypertensive disorder; Translations: [Unspecified essential hypertension] 11-03-2018 Chronic Fluid and electrolyte disorders (2 sources) Hyperkalemia; Translations: [Hyperkalemia] Onset: 5 Episodic Genitourinary symptoms and ill-defined conditions (4 sources) Increased frequency of urination; Translations: [Urinary frequency] Episodic Headache; including migraine (20 sources) Chronic headache disorder; Translations: [Headache] 09-02-2021 Episodic Comment on above: denies Heart valve disorders (20 sources) Heart murmur; Translations: [Cardiac murmur, unspecified] 01-10-2021 Episodic Hypertension with complications and secondary hypertension (12 sources) Hypertensive emergency; Translations: [Hypertensive emergency] Onset: 5 01-10-2021 Chronic Intracranial injury (13 sources) Concussion injury of body structure; Translations: [Concussion] 07-12-2022 Episodic Late effects of cerebrovascular disease (1 source) Dysphagia following cerebral infarction; Translations: [Dysphagia following cerebral infarction] Onset: 9 Chronic Malaise and fatigue (20 sources) Fatigue; Translations: [Other malaise and fatigue] Onset: 5 01-31-2021 Episodic Menopausal disorders (13 sources) Postmenopausal bleeding 12-09-2018 Chronic Mood disorders (20 sources) Depressive disorder; Translations: [Major depressive disorder] Onset: 5 05-28-2022 Chronic Mood disorders (4 sources) Mood swings 12-21-2024 Episodic Nonspecific chest pain (12 sources) Chest pain; Translations: [Chest pain, unspecified] Onset: 5 01-10-2021 Episodic Nutritional deficiencies (20 sources) Vitamin D deficiency; Translations: [Vitamin D deficiency, unspecified] Onset: 5 11-29-2020 Chronic Other aftercare (1 source) senior living (current) use of insulin; Translations: [senior living (current) use of insulin] Onset: 5 Episodic Other aftercare (1 source) senior living (current) use of aspirin; Translations: [senior living (current) use of aspirin] Onset: 5 Episodic Other aftercare (1 source) Encounter for palliative care; Translations: [Encounter for palliative care] Onset: 5 Episodic Other aftercare (1 source) Drug monitoring done; Translations: [Encounter for therapeutic drug level monitoring] Episodic Other aftercare (1 source) Long-term current use of drug therapy; Translations: [Other long term care phlebotomist (current) drug therapy] Episodic Other aftercare (1 source) Encounter for therapeutic drug level monitoring; Translations: [Encounter for therapeutic drug level monitoring] Onset: 5 Episodic Other aftercare (1 source) Other skilled nursing (current) drug therapy; Translations: [Other skilled nursing (current) drug therapy] Onset: 5 Episodic Other [...] of circulatory system] Episodic Other circulatory disease (10 sources) Carotid bruit; Translations: [Other specified symptoms and signs involving the circulatory and respiratory systems] 01-10-2021 Episodic Other circulatory disease (4 sources) Personal history of transient ischemic attack (TIA), and cerebral infarction without residual deficits; Translations: [Personal history of transient ischemic attack (TIA), and cerebral infarction without residual deficits] Onset: 5 07-12-2022 Episodic Other connective tissue disease (2 sources) Pain in upper limb; Translations: [Pain in limb] Episodic Other connective tissue disease (7 sources) Muscle spasm of cervical muscle of neck 10-26-2024 Episodic Other connective tissue disease (1 source) Pain in leg, unspecified; Translations: [Pain in leg, unspecified] Onset: 5 Episodic Other ear and sense organ disorders (18 sources) Hearing loss 04-29-2023 Chronic Other ear and sense organ disorders (1 source) Unspecified hearing loss, unspecified ear; Translations: [Unspecified hearing loss, unspecified ear] Onset: 5 Chronic Other gastrointestinal disorders (1 source) Dysphagia, oropharyngeal phase; Translations: [Dysphagia, oropharyngeal phase] Onset: 9 Episodic Other gastrointestinal disorders (20 sources) Chronic constipation 11-03-2018 Episodic Other gastrointestinal disorders (10 sources) H/O: gallstones; Translations: [Personal history of other diseases of the digestive system] 05-26-2019 Episodic Other injuries and conditions due to external causes (10 sources) Closed injury of head; Translations: [Unspecified injury of head, initial encounter] 07-12-2022 Episodic Other injuries and conditions due to external causes (10 sources) Contusion; Translations: [Other injury of unspecified body region, initial encounter] 04-17-2019 Episodic Other injuries and conditions due to external causes (3 sources) Unspecified injury of head, initial encounter; Translations: [Head injury, unspecified] 07-12-2022 Episodic Other injuries and conditions due to external causes (1 source) Traumatic AND/OR non-traumatic injury; Translations: [Other injury of unspecified body region, initial encounter] Onset: 3 Episodic Other liver diseases (8 sources) Jaundice 08-16-2024 Episodic Other lower respiratory disease (4 sources) Pulmonary edema; Translations: [Chronic pulmonary edema] 08-10-2024 Chronic Other lower respiratory disease (20 sources) Respiratory insufficiency; Translations: [Other abnormalities of breathing] 10-11-2020 Episodic Other lower respiratory disease (2 sources) Cough; Translations: [Cough] Episodic Other lower respiratory disease (2 sources) H/O: asthma; Translations: [Personal history of other diseases of respiratory system] Episodic Other lower respiratory disease (10 sources) Dyspnea; Translations: [Dyspnea, unspecified] 01-31-2021 Episodic Other lower respiratory disease (20 sources) Hypoxia; Translations: [Hypoxemia] 07-12-2022 Episodic Other lower respiratory disease (5 sources) Hypoxemia; Translations: [Hypoxemia] Onset: 5 07-12-2022 Episodic Other nervous system disorders (10 sources) Unable to walk; Translations: [Difficulty in walking, not elsewhere classified] 02-04-2021 Chronic Other nervous system disorders (1 source) Encephalopathy, unspecified; Translations: [Encephalopathy, unspecified] Onset: Chronic Other nervous system disorders (2 sources) H/O: glaucoma; Translations: [Personal history of other disorders of nervous system and sense organs] Episodic Other nervous system disorders (2 sources) H/O: Disorder; Translations: [Personal history of other disorders of nervous system and sense organs] Episodic Other nervous system disorders (7 sources) Slurred speech 07-22-2022 Episodic Other nervous system disorders (10 sources) Tremor 07-12-2024 Episodic Other non-traumatic joint disorders (13 sources) Shoulder pain; Translations: [Pain in joint, shoulder region] 07-31-2021 Episodic Other nutritional; endocrine; and metabolic disorders (2 sources) Morbid obesity; Translations: [Morbid obesity] Chronic Other nutritional; endocrine; and metabolic disorders (2 sources) Hypocalcemia; Translations: [Hypocalcemia] Chronic Other nutritional; endocrine; and metabolic disorders (7 sources) Obese class III 10-25-2024 Chronic Other nutritional; endocrine; and metabolic disorders (1 source) Body mass index (BMI) 45.0-49.9, adult; Translations: [Body mass index [BMI] 45.0-49.9, adult] Onset: Chronic Other nutritional; endocrine; and metabolic disorders (2 sources) Weight loss; Translations: [Loss of weight] Episodic Other nutritional; endocrine; and metabolic disorders (6 sources) H/O: diabetes mellitus; Translations: [Personal history of other endocrine, metabolic, and immunity disorders] 08-10-2024 Episodic Other nutritional; endocrine; and metabolic disorders (2 sources) History of hypercholesterolemia; Translations: [Personal history of other endocrine, metabolic, and immunity disorders] Episodic Other screening for suspected conditions (not mental disorders or infectious disease) (12 sources) Serum creatinine raised; Translations: [Other nonspecific findings on examination of blood] 05-06-2021 Episodic Other skin disorders (20 sources) Mass of lower limb 10-23-2021 Episodic Brenda-; endo-; and myocarditis; cardiomyopathy (except that caused by tuberculosis or sexually transmitted disease) (4 sources) Heart valve disorder 11-22-2024 Chronic Pneumonia (except that caused by tuberculosis or sexually transmitted disease) (20 sources) Community acquired pneumonia; Translations: [Pneumonia, unspecified organism] Onset: 5 07-12-2022 Episodic Pneumonia (except that caused by tuberculosis or sexually transmitted disease) (2 sources) Pneumonia (except that caused by tuberculosis or sexually transmitted disease); Translations: [Pneumonia due to other Gram-negative bacteria] Onset: 5 12-17-2021 Pulmonary heart disease (1 source) Pulmonary hypertension, unspecified; Translations: [Pulmonary hypertension, unspecified] Onset: 5 Chronic Residual codes; unclassified (1 source) Noncompliance with medication regimen; Translations: [Patient's other noncompliance with medication regimen] Onset: 2 Episodic Residual codes; unclassified (10 sources) Edema of lower extremity; Translations: [Localized edema] 04-17-2019 Episodic Residual codes; unclassified (20 sources) Altered mental status; Translations: [Altered mental status, unspecified] 07-22-2022 Episodic Residual codes; unclassified (1 source) Altered mental status, unspecified; Translations: [Altered mental status] 07-23-2022 Episodic Residual codes; unclassified (7 sources) Patient condition resolved 07-22-2022 Episodic Residual codes; unclassified (12 sources) Postmenopausal state 01-12-2024 Episodic Residual codes; unclassified (2 sources) Difficult venous access; Translations: [Other specified health status] 12-14-2023 Episodic Residual codes; unclassified (2 sources) Other general symptoms and signs; Translations: [Other general symptoms and signs] Onset: 5 Episodic Respiratory failure; insufficiency; arrest (adult) (20 sources) Chronic hypoxemic respiratory failure; Translations: [Chronic respiratory failure with hypoxia] Onset: 5 03-22-2024 Chronic Respiratory failure; insufficiency; arrest (adult) (4 sources) Acute respiratory failure with hypoxia; Translations: [Respiratory failure] Onset: 4 Episodic Respiratory failure; insufficiency; arrest (adult) (1 source) Respiratory failure; insufficiency; arrest (adult) 12-17-2021 Spondylosis; intervertebral disc disorders; other back problems (20 sources) Backache; Translations: [Low back pain] 10-11-2020 Episodic Superficial injury; contusion (20 sources) Superficial bruising of head and neck; Translations: [Contusion of other part of head, initial encounter] Onset: 3 07-12-2022 Episodic Unclassified (20 sources) Patient encounter status 08-09-2020 Unclassified (20 sources) Drug therapy finding 07-09-2022 Unclassified (1 source) Cough, unspecified; Translations: [Cough, unspecified] Onset: 5 Unclassified (1 source) Ventricular tachycardia, unspecified; Translations: [Ventricular tachycardia, unspecified] Onset: 5 Unclassified (1 source) Patient's noncompliance with renal dialysis for other reason; Translations: [Patient's noncompliance with renal dialysis for other reason] Onset: 5 Unclassified (1 source) Obesity, class 3; Translations: [Obesity, class 3] Onset: 5 Viral infection (20 sources) Disease caused by 2019-nCoV; Translations: [COVID-19] Onset: 1 01-31-2021 Episodic Viral infection (3 sources) Disease caused by 2019-nCoV; Translations: [COVID-19] Onset: 4 12-17-2021 Past or Other Problems Problem Classification Problem Date Documented Date Episodic/Chronic Nausea and vomiting (18 sources) Postoperative nausea; Translations: [Nausea] Onset: 07-31-2024 05-06-2019 Episodic Other ear and sense organ disorders (1 source) Unspecified disorder of ear, unspecified ear; Translations: [Unspecified disorder of ear, unspecified ear] Onset: 04-11-2024 Episodic Other upper respiratory infections (6 sources) Acute sinusitis; Translations: [Acute sinusitis, unspecified] Onset: 07-30-2024 04-15-2022 Episodic Residual codes; unclassified (10 sources) History of cardiac catheterization; Translations: [Other specified postprocedural states] Onset: 05-27-2021 05-27-2021 Episodic Comment on above: 07/01/2016, jaz de leon, 05/27/21 Residual codes; unclassified (1 source) Other specified health status; Translations: [Other specified health status] Onset: 12-25-2023 Episodic Results Test Name Value Interpretation Reference Range Facility .Auto Diffon 01-02-2025 Basophil, Absolute 0.0 10 3/mcL Normal 0.0-0.3 [facility] Comment on above: Performed By: #### C MP, LIP, ANEU, MDW, PBNP, CBC, TROPHS, GFR, ADIFF #### [address] [address] Basophils/100 WBC (Bld) 0.1 % Normal 0.0-2.5 [facility] Comment on above: Performed By: #### C MP, LIP, ANEU, MDW, PBNP, CBC, TROPHS, GFR, ADIFF #### [address] [address] Eosinophil, Absolute 0.0 10 3/mcL Normal 0.0-0.7 [facility] Comment on above: Performed By: #### C MP, LIP, ANEU, MDW, PBNP, CBC, TROPHS, GFR, ADIFF #### [address] [address] Eosinophils/100 WBC (Bld) 0.0 % Normal 0.0-6.0 [facility] Comment on above: Performed By: #### C MP, LIP, ANEU, MDW, PBNP, CBC, TROPHS, GFR, ADIFF #### [address] [address] Lymphocyte, Absolute 0.5 10 3/mcL Low 0.9-4.3 [facility] Comment on above: Performed By: #### C MP, LIP, ANEU, MDW, PBNP, CBC, TROPHS, GFR, ADIFF #### [address] [address] Lymphocytes/100 WBC (Bld) 4.3 % Low 20.0-40.0 [facility] Comment on above: Performed By: #### C MP, LIP, ANEU, MDW, PBNP, CBC, TROPHS, GFR, ADIFF #### [facility] [address] [place] [address] Monocyte, Absolute 0.9 10 3/mcL Normal 0.1-1.4 [facility] Comment on above: Performed By: #### C MP, LIP, ANEU, MDW, PBNP, CBC, TROPHS, GFR, ADIFF #### [address] [address] Monocytes/100 WBC (Bld) 7.4 % Normal 2.0-13.0 [facility] Comment on above: Performed By: #### C MP, LIP, ANEU, MDW, PBNP, CBC, TROPHS, GFR, ADIFF #### [address] [address] Neutrophils/100 WBC (Bld) 88.2 % High 50.0-75.0 [facility] Comment on above: Performed By: #### C MP, LIP, ANEU, MDW, PBNP, CBC, TROPHS, GFR, ADIFF #### [address] [address] .GFRon 01-02-2025 Estimated Glomerular Filtration Rate 6 ml/min/1.73sqm Normal [facility] Comment on above: Result Comment: Stages of [...] eGFR results. Performed By: #### C MP, LIP, ANEU, MDW, PBNP, CBC, TROPHS, GFR, ADIFF #### [address] [address] .NEUABSon 01-02-2025 Neutrophil, Absolute 10.4 10 3/mcL High 2.3-8.1 [facility] Comment on above: Performed By: #### C MP, LIP, ANEU, MDW, PBNP, CBC, TROPHS, GFR, ADIFF #### [address] [address] BMPon 01-02-2025 BUN/Creatinine Ratio 6.3 ratio Low 10.0-22.0 [facility] Comment on above: Order Comment: Routi ne for 0501 the morning of patient admission. Performed By: #### C MP, LIP, ANEU, MDW, PBNP, CBC, TROPHS, GFR, ADIFF #### [place] [address] Calcium [Mass/Vol] 9.5 mg/dL Normal 8.7-10.4 [facility] Comment on above: Order Comment: Routi ne for 0501 the morning of patient admission. Performed By: #### C MP, LIP, ANEU, MDW, PBNP, CBC, TROPHS, GFR, ADIFF #### [place] [address] Chloride [Moles/Vol] 90 mmol/L Low 98-110 [facility] Comment on above: Order Comment: Routi ne for 0501 the morning of patient admission. Performed By: #### C MP, LIP, ANEU, MDW, PBNP, CBC, TROPHS, GFR, ADIFF #### [address] [address] CO2 [Moles/Vol] 30 mmol/L Normal 22-32 [facility] Comment on above: Order Comment: Routi ne for 0501 the morning of patient admission. Performed By: #### C MP, LIP, ANEU, MDW, PBNP, CBC, TROPHS, GFR, ADIFF #### [place] [id number] Creatinine [Mass/Vol] 7.09 mg/dL High 0.50-1.20 [place] MAIN Comment on above: Order Comment: Routi ne for 0501 the morning of patient admission. Result Comment: Test ing performed on Implanet analyzer using enzymatic creatinine methodology. Performed By: #### C MP, LIP, ANEU, MDW, PBNP, CBC, TROPHS, GFR, ADIFF #### [address] [address] Electrolyte Balance 13.0 mEq/L Normal 4.0-15.0 [facility] Comment on above: Order Comment: Routi ne for 0501 the morning of patient admission. Performed By: #### C MP, LIP, ANEU, MDW, PBNP, CBC, TROPHS, GFR, ADIFF #### [place] [id number] Glucose [Mass/Vol] 262 mg/dL High 70-110 [facility] MA[facility] Comment on above: Order Comment: Routi ne for 0501 the morning of patient admission. Performed By: #### C MP, LIP, ANEU, MDW, PBNP, CBC, TROPHS, GFR, ADIFF #### [place] [id number] Potassium [Moles/Vol] 5.1 mmol/L High 3.5-5.0 [place] MAIN Comment on above: Order Comment: Routi ne for 0501 the morning of patient admission. Performed By: #### C MP, LIP, ANEU, MDW, PBNP, CBC, TROPHS, GFR, ADIFF #### [place] [id number] Sodium [Moles/Vol] 133 mmol/L Low 136-145 [facility] MA[facility] Comment on above: Order Comment: Routi ne for 0501 the morning of patient admission. Performed By: #### C MP, LIP, ANEU, MDW, PBNP, CBC, TROPHS, GFR, ADIFF #### [address] [address] Urea nitrogen [Mass/Vol] 45.0 mg/dL High 8.0-22.0 [facility] Comment on above: Order Comment: Routi ne for 0501 the morning of patient admission. Performed By: #### C MP, LIP, ANEU, MDW, PBNP, CBC, TROPHS, GFR, ADIFF #### [place] [id number] CBCon 01-02-2025 Erythrocyte distribution width (RBC) [Ratio] 17.5 % High 11.5-15.5 [facility] MA[facility] Comment on above: Order Comment: Routi ne for 0501 the morning of patient admission. Performed By: #### C MP, LIP, ANEU, MDW, PBNP, CBC, TROPHS, GFR, ADIFF #### [place] [address] Hematocrit (Bld) [Volume fraction] 32.3 % Low 34.0-46.0 [facility] Comment on above: Order Comment: Routi ne for 0501 the morning of patient admission. Performed By: #### C MP, LIP, ANEU, MDW, PBNP, CBC, TROPHS, GFR, ADIFF #### [place] [address] Hgb 11.0 G/dL Low 12.0-16.0 [facility] Comment on above: Order Comment: Routi ne for 0501 the morning of patient admission. Performed By: #### C MP, LIP, ANEU, MDW, PBNP, CBC, TROPHS, GFR, ADIFF #### [place] [address] MCH (RBC) [Entitic mass] 32.4 pg Normal 27.0-33.0 [facility] MA[facility] Comment on above: Order Comment: Routi ne for 0501 the morning of patient admission. Performed By: #### C MP, LIP, ANEU, MDW, PBNP, CBC, TROPHS, GFR, ADIFF #### [place] [phone] MCHC 34.0 G/dL Normal 32.0-36.0 [facility] MA[facility] Comment on above: Order Comment: Routi ne for 0501 the morning of patient admission. Performed By: #### C MP, LIP, ANEU, MDW, PBNP, CBC, TROPHS, GFR, ADIFF #### [address] [address] MCV (RBC) [Entitic vol] 95.1 fL Normal 80.0-99.0 [facility] MA[facility] Comment on above: Order Comment: Routi ne for 0501 the morning of patient admission. Performed By: #### C MP, LIP, ANEU, MDW, PBNP, CBC, TROPHS, GFR, ADIFF #### [place] [id number] Platelet 157 10 3/mcL Normal 150-450 [facility] MAIN Comment on above: Order Comment: Routi ne for 0501 the morning of patient admission. Performed By: #### C MP, LIP, ANEU, MDW, PBNP, CBC, TROPHS, GFR, ADIFF #### [place] [address] Platelet mean volume (Bld) [Entitic vol] 10.8 fL High 6.6-10.5 [facility] MAIN Comment on above: Order Comment: Routi ne for 0501 the morning of patient admission. Performed By: #### C MP, LIP, ANEU, MDW, PBNP, CBC, TROPHS, GFR, ADIFF #### [place] [id number] RBC 3.39 10 6/mcL Low 4.10-5.30 [facility] MA[facility] Comment on above: Order Comment: Routi ne for 0501 the morning of patient admission. Performed By: #### C MP, LIP, ANEU, MDW, PBNP, CBC, TROPHS, GFR, ADIFF #### [place] [phone] WBC 11.8 10 3/mcL High 4.5-10.8 [facility] MA[facility] Comment on above: Order Comment: Routi ne for 0501 the morning of patient admission. Performed By: #### C MP, LIP, ANEU, MDW, PBNP, CBC, TROPHS, GFR, ADIFF #### [place] [address] LABORATORYOrdered By: Louie Jeronimo on 01-02-2025 Blood Glucose Testing Reason Routine (01/02/25 12:05 PM) [facility] Work Phone: Glucose [Mass/Vol] 195 mg/dL High 70 - 110 mg/dL [facility] Work Phone: Blood Glucose Testing Reason Routine (01/02/25 8:24 AM) [facility] Work Phone: Glucose [Mass/Vol] 272 mg/dL High 70 - 110 mg/dL [facility] Work Phone: LABORATORYOrdered By: SYSTEM SYSTEM on 01-02-2025 Basophils (Bld) [#/Vol] 0.0 103/mcL Normal 0.0 - 0.3 10^3/mcL Workflow SS Basophils/100 WBC (Bld) 0.1 % Normal 0.0 - 2.5 % Workflow SS Calcium [Mass/Vol] 9.5 mg/dL Normal 8.7 - 10. 4 mg/dL ADM SS Chloride [Moles/Vol] 90 mmol/L Low 98 - 11 0 mEq/L ADM SS CO2 [Moles/Vol] 30 mmol/L Normal 22 - 32 mEq/L ADM SS Creatinine [Mass/Vol] 7.09 mg/dL High 0.50 - 1.20 mg/dL ADM SS Comment on above: Interpretive Data: T esting performed on Implanet analyzer using enzymatic creatinine methodology. Electrolyte Balance 13.0 mEq/L Normal 4.0 - 15 .0 mEq/L ADM SS Eosinophils (Bld) [#/Vol] 0.0 103/mcL Normal 0.0 - 0.7 10^3/mcL Workflow SS Eosinophils/100 WBC (Bld) 0.0 % Normal 0.0 - 6.0 % Workflow SS Erythrocyte distribution width (RBC) [Ratio] 17.5 % High 11.5 - 15.5 % Workflow SS GLOMERULAR FILTRATION RATE/1.73 SQ M.PREDICTED:ARVRAT:PT: SER/PLAS/BLD:QN:CREATI NINE-BASED FORMULA (CKD-EPI 2020) 6 ml/min/1.73sqm Invalid Interpretation Code Chemistry S Comment on above: Interpretive Data: [...] to calculate the eGFR results. Glucose [Mass/Vol] 262 mg/dL High 70 - 110 mg/dL AH ADM SS Hematocrit (Bld) [Volume fraction] 32.3 % Low 34.0 - 46.0 % AH Workflow SS Hemoglobin (Bld) [Mass/Vol] 11.0 G/dL Low 12.0 - 16.0 G/dL AH Workflow SS Lymphocytes (Bld) [#/Vol] 0.5 103/mcL Low 0.9 - 4.3 10^3/mcL AH Workflow SS Lymphocytes/100 WBC (Bld) 4.3 % Low 20.0 - 40.0 % AH Workflow SS Magnesium [Mass/Vol] 2.4 mg/dL Normal 1.6 - 2 .4 mg/dL AH ADM SS MCH (RBC) [Entitic mass] 32.4 pg Normal 27.0 - 33.0 pg AH Workflow SS MCHC 34.0 G/dL Normal 32.0 - 36.0 G/dL AH Workflow SS MCV (RBC) [Entitic vol] 95.1 fL Normal 80.0 - 99.0 fL AH Workflow SS Monocytes (Bld) [#/Vol] 0.9 103/mcL Normal 0.1 - 1.4 10^3/mcL AH Workflow SS Monocytes/100 WBC (Bld) 7.4 % Normal 2.0 - 13.0 % AH Workflow SS Neutrophils (Bld) [#/Vol] 10.4 103/mcL High 2.3 - 8.1 10^3/mcL AH Workflow SS Neutrophils/100 WBC (Bld) 88.2 % High 50.0 - 75.0 % AH Workflow SS Platelet mean volume (Bld) [Entitic vol] 10.8 fL High 6.6 - 10.5 fL AH Workflow SS Platelets (Bld) [#/Vol] 157 103/mcL Normal 150 - 450 10^3/mcL AH Workflow SS Potassium [Moles/Vol] 5.1 mmol/L High 3.5 - 5.0 mEq/L ADM SS RBC (Bld) [#/Vol] 3.39 106/mcL Low 4.10 - 5.3 0 10^6/mcL Workflow SS Sodium [Moles/Vol] 133 mmol/L Low 136 - 145 mEq/L ADM SS Urea nitrogen [Mass/Vol] 45.0 mg/dL High 8.0 - 22.0 mg/dL ADM SS Urea nitrogen/Creatinine [Mass ratio] 6.3 ratio Low 10.0 - 22.0 ratio AH ADM SS WBC (Bld) [#/Vol] 11.8 103/mcL High 4.5 - 10.8 10^3/mcL Workflow SS LABORATORYOrdered By: Juan Patricio on 01-02-2025 Glucose [Mass/Vol] 234 mg/dL High 70 - 110 mg/dL [facility] Work Phone: Blood Glucose Testing Reason Routine (01/02/25 12:37 AM) [facility] Work Phone: MGon 01-02-2025 Magnesium [Mass/Vol] 2.4 mg/dL Normal 1.6-2.4 [facility] MAIN Comment on above: Performed By: #### C CHRISTOPHER JOHNSTON ANEU, MARCELLA, PBNP, CBC, TROPHS, GFR, ADIFF #### [address] [address] BGon 01-01-2025 Base excess Calc (Bld) [Moles/Vol] 1.8 mmol/L Normal [facility] MAIN Comment on above: Performed By: #### C CHRISTOPHER JOHNSTON ANEU, W, PBNP, CBC, TROPHS, GFR, ADIFF #### [address] [address] CO2 [Moles/Vol] 27.5 mmol/L Normal 22.0-30.0 [facility] MAIN Comment on above: Performed By: #### C CHRISTOPHER JOHNSTON ANEU, W, PBNP, CBC, TROPHS, GFR, ADIFF #### [address] [address] HCO3 (Bld) [Moles/Vol] 26.3 mmol/L Normal 21.0-29.0 [facility] MAIN Comment on above: Performed By: #### C MP, LIP, ANEU, MDW, PBNP, CBC, TROPHS, GFR, ADIFF #### [address] [address] Oxygen (Bld) [Partial pressure] 73.4 mm[Hg] Low 74.0-108.0 [facility] MAIN Comment on above: Performed By: #### C MP, LIP, ANEU, MDW, PBNP, CBC, TROPHS, GFR, ADIFF #### [address] [address] Oxygen saturation in Blood 94.6 % Normal 92.0-96.0 [facility] MAIN Comment on above: Performed By: #### C MP, LIP, ANEU, MDW, PBNP, CBC, TROPHS, GFR, ADIFF #### [address] [address] pCO2 40.7 mmHg Normal 32.0-46.0 [facility] MAIN Comment on above: Performed By: #### C MP, LIP, ANEU, MDW, PBNP, CBC, TROPHS, GFR, ADIFF #### [address] [address] pH (Bld) 7.428 [pH] Normal 7.380-7.460 [facility] MAIN Comment on above: Performed By: #### C MP, LIP, ANEU, MDW, PBNP, CBC, TROPHS, GFR, ADIFF #### [address] [address] LABORATORYOrdered By: Juan Patricio on 01-01-2025 Blood Glucose Interventions Notify physician (01/01/25 9:24 PM) [facility] Work Phone: LABORATORYOrdered By: Elza garcia on 01-01-2025 Blood Glucose Interventions Notify physician (01/01/25 11:40 AM) [facility] Work Phone: LABORATORYOrdered By: Rosa russ on 01-01-2025 CO2 [Moles/Vol] 27.5 mmol/L Normal 22.0 - 30.0 mmol/L AH Main Rapid Comm SS HCO3 (Bld) [Moles/Vol] 26.3 mmol/L Normal 21.0 - 29.0 mmol/L AH Main Rapid Comm SS Oxygen (Bld) [Partial pressure] 73.4 mm[Hg] Low 74.0 - 108.0 mm Hg AH Main Rapid Comm SS pCO2 40.7 mm[Hg] Normal 32.0 - 46.0 mm Hg AH Main Rapid Comm SS pH (Bld) 7.428 [pH] Normal 7.380 - 7.460 Main Rapid Comm SS Sodium [Moles/Vol] 1.8 mmol/L Invalid Interpretation Code Main Rapid Comm SS TROPHSon 01-01-2025 High Sensitivity Troponin I 17 ng/L Normal 0-34 [facility] MAIN Comment on above: Result Comment: High Sensitive Troponin I Reference Ranges: Female: 0-34 ng/L Male: 0-54 ng/L Testing performed on Finjan IM analyzer using direct chemiluminescent technology. Performed By: #### C MP, LIP, ANEU, MDW, PBNP, CBC, TROPHS, GFR, ADIFF #### [place] [address] XR CHEST 1 VIEWon 01-01-2025 XR CHEST 1 VIEW ORIGINAL EXAMINATION: ONE XRAY VIEW OF THE CHEST TECHNIQUE: CHEST ONE VIEW AP/PA COMPARISON: Chest x-ray 12/30/2024 HISTORY: ORDERING SYSTEM PROVIDED HISTORY: Reason for Exam: sob, cough FINDINGS: The cardiomediastinal silhouette is stable. Lung volumes are decreased with mild crowding of the interstitial markings. No pleural effusion, focal consolidation, or pneumothorax. Mild bibasilar atelectasis. IMPRESSION: Hypoventilatory changes. No acute process. I have personally reviewed the images of this examination and agree with the resident's findings and interpretation. Interpreted by: Tony Manuel Preliminary Report By: Jair Mayes Electronically signed By Tony Manuel Dictated Date: 01/01/2025 12:04:44 AM Prelim Date: 01/01/2025 12:06:32 AM Sign Date: 01/01/2025 12:24:06 AM Ordering Provider: LARRY BARRERA Normal [facility] .Auto Diffon 12-31-2024 Basophil, Absolute 0.0 10 3/mcL Normal 0.0-0.3 [facility] MAIN Comment on above: Performed By: #### C MP, LIP, ANEU, MDW, PBNP, CBC, TROPHS, GFR, ADIFF #### [address] [address] Basophils/100 WBC (Bld) 0.5 % Normal 0.0-2.5 [facility] MAIN Comment on above: Performed By: #### C MP, LIP, ANEU, MDW, PBNP, CBC, TROPHS, GFR, ADIFF #### [address] [address] Eosinophil, Absolute 0.4 10 3/mcL Normal 0.0-0.7 [facility] MAIN Comment on above: Performed By: #### C MP, LIP, ANEU, MDW, PBNP, CBC, TROPHS, GFR, ADIFF #### [address] [address] Eosinophils/100 WBC (Bld) 6.1 % High 0.0-6.0 [facility] Comment on above: Performed By: #### C MP, LIP, ANEU, MDW, PBNP, CBC, TROPHS, GFR, ADIFF #### [address] [address] Lymphocyte, Absolute 0.6 10 3/mcL Low 0.9-4.3 [facility] MAIN Comment on above: Performed By: #### C MP, LIP, ANEU, MDW, PBNP, CBC, TROPHS, GFR, ADIFF #### [address] [address] Lymphocytes/100 WBC (Bld) 8.9 % Low 20.0-40.0 [facility] MAIN Comment on above: Performed By: #### C MP, LIP, ANEU, MDW, PBNP, CBC, TROPHS, GFR, ADIFF #### [address] [address] Monocyte, Absolute 0.8 10 3/mcL Normal 0.1-1.4 [facility]IN Comment on above: Performed By: #### C MP, LIP, ANEU, MDW, PBNP, CBC, TROPHS, GFR, ADIFF #### [address] [address] Monocytes/100 WBC (Bld) 12.2 % Normal 2.0-13.0 [facility] Comment on above: Performed By: #### C MP, LIP, ANEU, MDW, PBNP, CBC, TROPHS, GFR, ADIFF #### [address] [address] Neutrophils/100 WBC (Bld) 72.3 % Normal 50.0-75.0 [facility] Comment on above: Performed By: #### C MP, LIP, ANEU, MDW, PBNP, CBC, TROPHS, GFR, ADIFF #### [address] [address] .GFRon 12-31-2024 Estimated Glomerular Filtration Rate 10 ml/min/1.73sqm Normal [facility] MAIN Comment on above: Result Comment: Stages of [...] eGFR results. Performed By: #### C MP, LIP, ANEU, MDW, PBNP, CBC, TROPHS, GFR, ADIFF #### [address] [address] .MDWon 12-31-2024 Monocyte Distribution Width 21.78 High 0.00-20.00 [facility] MAIN Comment on above: Result Comment: For adults in ED, MDW>20.0 may be associated with a higher risk of sepsis during the first 12hrs of hospital admission Performed By: #### C MP, LIP, ANEU, MDW, PBNP, CBC, TROPHS, GFR, ADIFF #### [address] [address] .NEUABSon 12-31-2024 Neutrophil, Absolute 4.7 10 3/mcL Normal 2.3-8.1 [facility] MAIN Comment on above: Performed By: #### C MP, LIP, ANEU, MDW, PBNP, CBC, TROPHS, GFR, ADIFF #### [place] [id number] CBCon 12-31-2024 Erythrocyte distribution width (RBC) [Ratio] 17.5 % High 11.5-15.5 [facility]IN Comment on above: Performed By: #### C MP, LIP, ANEU, MDW, PBNP, CBC, TROPHS, GFR, ADIFF #### [place] [address] Hematocrit (Bld) [Volume fraction] 37.2 % Normal 34.0-46.0 [facility] Comment on above: Performed By: #### C MP, LIP, ANEU, MDW, PBNP, CBC, TROPHS, GFR, ADIFF #### [place] [address] Hgb 12.3 G/dL Normal 12.0-16.0 [facility] Comment on above: Performed By: #### C MP, LIP, ANEU, MDW, PBNP, CBC, TROPHS, GFR, ADIFF #### [place] [address] MCH (RBC) [Entitic mass] 31.7 pg Normal 27.0-33.0 [facility] Comment on above: Performed By: #### C MP, LIP, ANEU, MDW, PBNP, CBC, TROPHS, GFR, ADIFF #### [place] [id number] MCHC 33.2 G/dL Normal 32.0-36.0 [facility] Comment on above: Performed By: #### C MP, LIP, ANEU, MDW, PBNP, CBC, TROPHS, GFR, ADIFF #### [place] [id number] MCV (RBC) [Entitic vol] 95.5 fL Normal 80.0-99.0 [facility] Comment on above: Performed By: #### C MP, LIP, ANEU, MDW, PBNP, CBC, TROPHS, GFR, ADIFF #### [address] [address] Platelet 169 10 3/mcL Normal 150-450 [facility] Comment on above: Performed By: #### C MP, LIP, ANEU, MDW, PBNP, CBC, TROPHS, GFR, ADIFF #### [place] [address] Platelet mean volume (Bld) [Entitic vol] 10.5 fL Normal 6.6-10.5 [facility] Comment on above: Performed By: #### C MP, LIP, ANEU, MDW, PBNP, CBC, TROPHS, GFR, ADIFF #### [address] [address] RBC 3.89 10 6/mcL Low 4.10-5.30 [facility] Comment on above: Performed By: #### C MP, LIP, ANEU, MDW, PBNP, CBC, TROPHS, GFR, ADIFF #### [address] [address] WBC 6.6 10 3/mcL Normal 4.5-10.8 [facility] Comment on above: Performed By: #### C MP, LIP, ANEU, MDW, PBNP, CBC, TROPHS, GFR, ADIFF #### [address] [address] CMPon 12-31-2024 Albumin Level 3.8 G/dL Normal 3.2-4.8 [facility] Comment on above: Performed By: #### C MP, LIP, ANEU, MDW, PBNP, CBC, TROPHS, GFR, ADIFF #### [place] [id number] Albumin/Globulin [Mass ratio] 1.0 {ratio} Normal 0.9-1.6 [facility] Comment on above: Performed By: #### C MP, LIP, ANEU, MDW, PBNP, CBC, TROPHS, GFR, ADIFF #### [address] [address] ALP [Catalytic activity/Vol] 87 U/L Normal 38-126 [facility] Comment on above: Performed By: #### C MP, LIP, ANEU, MDW, PBNP, CBC, TROPHS, GFR, ADIFF #### [address] [address] ALT [Catalytic activity/Vol] 27 U/L Normal 10-49 [facility] Comment on above: Performed By: #### C MP, LIP, ANEU, MDW, PBNP, CBC, TROPHS, GFR, ADIFF #### [address] [address] AST [Catalytic activity/Vol] 40 U/L High 8-34 [facility] Comment on above: Performed By: #### C MP, LIP, ANEU, MDW, PBNP, CBC, TROPHS, GFR, ADIFF #### [address] [address] Bili Total 0.40 mg/dL Normal 0.20-1.20 [facility] Comment on above: Result Comment: Use of this assay is not recommended for patients undergoing treatment with eltrombopag due to the potential for falsely elevated results. Performed By: #### C MP, LIP, ANEU, MDW, PBNP, CBC, TROPHS, GFR, ADIFF #### [address] [address] BUN/Creatinine Ratio 4.6 ratio Low 10.0-22.0 [facility] Comment on above: Performed By: #### C MP, LIP, ANEU, MDW, PBNP, CBC, TROPHS, GFR, ADIFF #### [address] [address] Calcium [Mass/Vol] 9.7 mg/dL Normal 8.7-10.4 [facility] Comment on above: Performed By: #### C MP, LIP, ANEU, MDW, PBNP, CBC, TROPHS, GFR, ADIFF #### [address] [address] Chloride [Moles/Vol] 93 mmol/L Low 98-110 [facility] Comment on above: Performed By: #### C MP, LIP, ANEU, MDW, PBNP, CBC, TROPHS, GFR, ADIFF #### [address] [address] CO2 [Moles/Vol] 36 mmol/L High 22-32 [facility] Comment on above: Performed By: #### C MP, LIP, ANEU, MDW, PBNP, CBC, TROPHS, GFR, ADIFF #### [place] [id number] Creatinine [Mass/Vol] 4.60 mg/dL High 0.50-1.20 [place] [facility] Comment on above: Result Comment: Test ing performed on Implanet analyzer using enzymatic creatinine methodology. Performed By: #### C MP, LIP, ANEU, MDW, PBNP, CBC, TROPHS, GFR, ADIFF #### [place] [address] Electrolyte Balance 10.0 mEq/L Normal 4.0-15.0 [facility] Comment on above: Performed By: #### C MP, LIP, ANEU, MDW, PBNP, CBC, TROPHS, GFR, ADIFF #### [place] [id number] Globulin 3.8 G/dL Normal 2.5-4.2 [facility] Comment on above: Performed By: #### C MP, LIP, ANEU, MDW, PBNP, CBC, TROPHS, GFR, ADIFF #### [place] [id number] Glucose [Mass/Vol] 82 mg/dL Normal 70-110 [facility] Comment on above: Performed By: #### C MP, LIP, ANEU, MDW, PBNP, CBC, TROPHS, GFR, ADIFF #### [place] [id number] Potassium [Moles/Vol] 4.2 mmol/L Normal 3.5-5.0 [place] [facility] Comment on above: Performed By: #### C MP, LIP, ANEU, MDW, PBNP, CBC, TROPHS, GFR, ADIFF #### [place] [id number] [place] [id number] Sodium [Moles/Vol] 139 mmol/L Normal 136-145 [facility] Comment on above: Performed By: #### C MP, LIP, ANEU, MDW, PBNP, CBC, TROPHS, GFR, ADIFF #### [place] [id number] Total Protein 7.6 G/dL Normal 5.7-8.2 [facility] MAIN Comment on above: Performed By: #### C MP, LIP, ANEU, MDW, PBNP, CBC, TROPHS, GFR, ADIFF #### [place] [id number] Urea nitrogen [Mass/Vol] 21.0 mg/dL Normal 8.0-22.0 [facility]IN Comment on above: Performed By: #### C MP, LIP, ANEU, MDW, PBNP, CBC, TROPHS, GFR, ADIFF #### [place] [address] LABORATORYOrdered By: SYSTEM SYSTEM on 12-31-2024 Troponin I.cardiac DL <= 0.01 ng/mL [Mass/Vol] 17 ng/L Normal 0 - 34 ng/L ADM SS Comment on above: Interpretive Data: High Sensitive Troponin I Reference Ranges: Female: 0-34 ng/L Male: 0-54 ng/L Testing performed on Finjan IM analyzer using direct chemiluminescent technology. Albumin BCP dye [Mass/Vol] 3.8 G/dL Normal 3.2 - 4.8 G/dL ADM SS Albumin/Globulin [Mass ratio] 1.0 {ratio} Normal 0.9 - 1.6 ratio ADM SS ALP [Catalytic activity/Vol] 87 U/L Normal 38 - 126 U/L ADM SS ALT No additional P-5'-P [Catalytic activity/Vol] 27 U/L Normal 10 - 49 U/L ADM SS AST [Catalytic activity/Vol] 40 U/L High 8 - 34 U/L ADM SS Basophils (Bld) [#/Vol] 0.0 103/mcL Normal 0.0 - 0.3 10^3/mcL Workflow SS Basophils/100 WBC (Bld) 0.5 % Normal 0.0 - 2.5 % Workflow SS Bilirubin [Mass/Vol] 0.40 mg/dL Normal 0.20 - 1.20 mg/dL ADM SS Comment on above: Interpretive Data: U se of this assay is not recommended for patients undergoing treatment with eltrombopag due to the potential for falsely elevated results. Calcium [Mass/Vol] 9.7 mg/dL Normal 8.7 - 10. 4 mg/dL ADM SS Chloride [Moles/Vol] 93 mmol/L Low 98 - 11 0 mEq/L ADM SS CO2 [Moles/Vol] 36 mmol/L High 22 - 32 mEq/L ADM SS Creatinine [Mass/Vol] 4.60 mg/dL High 0.50 - 1.20 mg/dL ADM SS Comment on above: Interpretive Data: T esting performed on Implanet analyzer using enzymatic creatinine methodology. Electrolyte Balance 10.0 mEq/L Normal 4.0 - 15 .0 mEq/L ADM SS Eosinophils (Bld) [#/Vol] 0.4 103/mcL Normal 0.0 - 0.7 10^3/mcL Workflow SS Eosinophils/100 WBC (Bld) 6.1 % High 0.0 - 6.0 % Workflow SS Erythrocyte distribution width (RBC) [Ratio] 17.5 % High 11.5 - 15.5 % Workflow SS Globulin 3.8 G/dL Normal 2.5 - 4.2 G/dL ADM SS GLOMERULAR FILTRATION RATE/1.73 SQ M.PREDICTED:ARVRAT:PT: SER/PLAS/BLD:QN:CREATI NINE-BASED FORMULA (CKD-EPI 2020) 10 ml/min/1.73sqm Invalid Interpretation Code ADM SS Comment on above: Interpretive Data: Stages of [...] to calculate the eGFR results. Glucose [Mass/Vol] 82 mg/dL Normal 70 - 110 mg/dL ADM SS Hematocrit (Bld) [Volume fraction] 37.2 % Normal 34.0 - 46.0 % AH Workflow SS Hemoglobin (Bld) [Mass/Vol] 12.3 G/dL Normal 12.0 - 16.0 G/dL AH Workflow SS Lipase [Catalytic activity/Vol] 35 U/L Normal 12 - 53 U/L ADM SS Lymphocytes (Bld) [#/Vol] 0.6 103/mcL Low 0.9 - 4.3 10^3/mcL AH Workflow SS Lymphocytes/100 WBC (Bld) 8.9 % Low 20.0 - 40.0 % AH Workflow SS MCH (RBC) [Entitic mass] 31.7 pg Normal 27.0 - 33.0 pg AH Workflow SS MCHC 33.2 G/dL Normal 32.0 - 36.0 G/dL AH Workflow SS MCV (RBC) [Entitic vol] 95.5 fL Normal 80.0 - 99.0 fL AH Workflow SS Monocyte distribution width Auto (Bld) [Entitic vol] 21.78 1 High 0.00 - 20.00 Workflow SS Comment on above: Result Comment: For adults in ED, MDW>20.0 may be associated with a higher risk of sepsis during the first 12hrs of hospital admission Monocytes (Bld) [#/Vol] 0.8 103/mcL Normal 0.1 - 1.4 10^3/mcL Workflow SS Monocytes/100 WBC (Bld) 12.2 % Normal 2.0 - 13.0 % AH Workflow SS Natriuretic peptide.B prohormone N-Terminal IA [Mass/Vol] 7152 pg/mL High 0 - 900 pg/mL ADM SS Neutrophils (Bld) [#/Vol] 4.7 103/mcL Normal 2.3 - 8.1 10^3/mcL AH Workflow SS Neutrophils/100 WBC (Bld) 72.3 % Normal 50.0 - 75.0 % AH Workflow SS Platelet mean volume (Bld) [Entitic vol] 10.5 fL Normal 6.6 - 10.5 fL AH Workflow SS Platelets (Bld) [#/Vol] 169 103/mcL Normal 150 - 450 10^3/mcL AH Workflow SS Potassium [Moles/Vol] 4.2 mmol/L Normal 3.5 - 5.0 mEq/L ADM SS Protein [Mass/Vol] 7.6 G/dL Normal 5.7 - 8.2 G/dL ADM SS RBC (Bld) [#/Vol] 3.89 106/mcL Low 4.10 - 5.3 0 10^6/mcL Workflow SS Sodium [Moles/Vol] 139 mmol/L Normal 136 - 145 mEq/L ADM SS Troponin I.cardiac DL <= 0.01 ng/mL [Mass/Vol] 17 ng/L Normal 0 - 34 ng/L ADM SS Comment on above: Interpretive Data: High Sensitive Troponin I Reference Ranges: Female: 0-34 ng/L Male: 0-54 ng/L Testing performed on Finjan IM analyzer using direct chemiluminescent technology. Urea nitrogen [Mass/Vol] 21.0 mg/dL Normal 8.0 - 22.0 mg/dL ADM SS Urea nitrogen/Creatinine [Mass ratio] 4.6 ratio Low 10.0 - 22.0 ratio ADM SS WBC (Bld) [#/Vol] 6.6 103/mcL Normal 4.5 - 10.8 10^3/mcL Workflow SS LIPon 12-31-2024 Lipase Level 35 U/L Normal 12-53 [facility] MAIN Comment on above: Performed By: #### C PRESTON, CHRISTOPHER, PAULINE, MDW, PBNP, CBC, TROPHS, GFR, ADIFF #### [address] [address] PBNPon 12-31-2024 Natriuretic peptide B (Bld) [Mass/Vol] 7152 pg/mL High 0-900 [facility] MAIN Comment on above: Performed By: #### C MP, CHRISTOPHER, PAULINE, MDW, PBNP, CBC, TROPHS, GFR, ADIFF #### [address] [address] TROPHSon 12-31-2024 High Sensitivity Troponin I 17 ng/L Normal 0-34 [facility] MAIN Comment on above: Result Comment: High Sensitive Troponin I Reference Ranges: Female: 0-34 ng/L Male: 0-54 ng/L Testing performed on Atell[employer] IM analyzer using direct chemiluminescent technology. Performed By: #### C PRESTON, CHRISTOPHER, PAULINE, W, PBNP, CBC, TROPHS, GFR, ADIFF #### [facility] [address] [place] [address] XR CHEST 2 VIEWSon XR CHEST 2 VIEWS ORIGINAL HISTORY: Abnormal breath sounds COMPARISON: 09 November 2024 FINDINGS: The film is mildly rotated. There are mild streaky airspace opacities in the lung bases. The cardiac silhouette is mildly enlarged. The pulmonary vasculature is unremarkable in appearance. IMPRESSION: Mild basilar atelectasis or less likely consolidation. Cardiomegaly. Interpreted by: Stevie Shukla MD Preliminary Report By: Stevie Shukla MD Electronically signed By Stevie Shukla MD Dictated Date: 12/31/2024 9:04:24 AM Prelim Date: 12/31/2024 9:05:22 AM Sign Date: 12/31/2024 9:05:22 AM Ordering Provider: SHUBHAM VENTURA Normal [facility] CVFLURVon 12-30-2024 FLU A PCR Negative Normal Negative [facility] Comment on above: Order Comment: STAT Performed By: #### G MARCELLA CARRANZA, NAILA, BMP, CBC, ANEU, ADIFF #### [place] [address] FLU B PCR Negative Normal Negative [facility] Comment on above: Order Comment: STAT Performed By: #### MARCELLA FULLER, NAILA, BMP, CBC, ANEU, ADIFF #### [place] [address] RSV PCR Negative Normal Negative [facility] Comment on above: Order Comment: STAT Performed By: #### MARCELLA FULLER, NAILA, BMP, CBC, ANEU, ADIFF #### [address] [address] SARS-CoV-2 (COVID-19) RNA YANI+probe Ql (Unsp spec) Negative Normal Negative [facility] Comment on above: Order Comment: STAT Result Comment: Resu lts from the Xpert [...] cause inaccurate positive results. Performed By: #### G FR, MARCELLA, TROPHS, BMP, CBC, ANEU, ADIFF #### [place] [id number] [place] [id number] LABORATORYOrdered By: Jessica Peterson on 12-30-2024 FLUAV RNA YANI+probe Ql (Resp) Negative (12/30/24 3:33 PM) Normal AO Auto Urine SS FLUBV RNA YANI+probe Ql (Resp) Negative (12/30/24 3:33 PM) Normal AO Auto Urine SS RSV RNA YANI+probe Ql (Resp) Negative (12/30/24 3:33 PM) Normal AO Auto Urine SS SARS-CoV-2 (COVID-19) RNA YANI+probe Ql (Resp) Negative 1 (12/30/24 3:33 PM) Normal AO Auto Urine SS Comment on above: [...] influenza vaccines may cause inaccurate positive results. LABORATORYOrdered By: Marie graham on 11-16-2024 Glucose [Mass/Vol] 206 mg/dL High 70 - 110 mg/dL [facility] Work Phone: HbA1c (Bld) [Mass fraction] 6.7 % [facility] Work Phone: Lab Performed By Marie Quiroz PharmSeamus [facility] Work Phone: Lab Performing Location [facility] Work Phone: .Auto Diffon 11-11-2024 Basophil, Absolute 0.0 10 3/mcL Normal 0.0-0.3 [facility] MAIN Comment on above: Performed By: #### C MP, LIP, ANEU, MDW, PBNP, CBC, TROPHS, GFR, ADIFF #### [address] [address] Basophils/100 WBC (Bld) 0.7 % Normal 0.0-2.5 [facility]IN Comment on above: Performed By: #### C MP, LIP, ANEU, MDW, PBNP, CBC, TROPHS, GFR, ADIFF #### [address] [address] Eosinophil, Absolute 0.5 10 3/mcL Normal 0.0-0.7 [facility] MAIN Comment on above: Performed By: #### C MP, LIP, ANEU, MDW, PBNP, CBC, TROPHS, GFR, ADIFF #### [address] [address] Eosinophils/100 WBC (Bld) 6.7 % High 0.0-6.0 [facility]IN Comment on above: Performed By: #### C MP, LIP, ANEU, MDW, PBNP, CBC, TROPHS, GFR, ADIFF #### [address] [address] Lymphocyte, Absolute 0.6 10 3/mcL Low 0.9-4.3 [facility]IN Comment on above: Performed By: #### C MP, LIP, ANEU, MDW, PBNP, CBC, TROPHS, GFR, ADIFF #### [address] [address] Lymphocytes/100 WBC (Bld) 8.6 % Low 20.0-40.0 [facility] Comment on above: Performed By: #### C MP, LIP, ANEU, MDW, PBNP, CBC, TROPHS, GFR, ADIFF #### [address] [address] Monocyte, Absolute 1.0 10 3/mcL Normal 0.1-1.4 [facility] Comment on above: Performed By: #### C MP, LIP, ANEU, MDW, PBNP, CBC, TROPHS, GFR, ADIFF #### [address] [address] Monocytes/100 WBC (Bld) 14.6 % High 2.0-13.0 [facility] Comment on above: Performed By: #### C MP, LIP, ANEU, MDW, PBNP, CBC, TROPHS, GFR, ADIFF #### [address] [address] Neutrophils/100 WBC (Bld) 69.4 % Normal 50.0-75.0 [facility] Comment on above: Performed By: #### C MP, LIP, ANEU, MDW, PBNP, CBC, TROPHS, GFR, ADIFF #### [address] [address] .GFRon 11-11-2024 Estimated Glomerular Filtration Rate 11 ml/min/1.73sqm Normal [facility] MAIN Comment on above: Result Comment: Stages of [...] eGFR results. Performed By: #### C MP, LIP, ANEU, MDW, PBNP, CBC, TROPHS, GFR, ADIFF #### [address] [address] .NEUABSon 11-11-2024 Neutrophil, Absolute 4.7 10 3/mcL Normal 2.3-8.1 [facility]IN Comment on above: Performed By: #### C MP, LIP, ANEU, MDW, PBNP, CBC, TROPHS, GFR, ADIFF #### [address] [address] BMPon 11-11-2024 BUN/Creatinine Ratio 6.6 ratio Low 10.0-22.0 [facility] Comment on above: Performed By: #### C MP, LIP, ANEU, MDW, PBNP, CBC, TROPHS, GFR, ADIFF #### [address] [address] Calcium [Mass/Vol] 8.4 mg/dL Low 8.7-10.4 [facility] Comment on above: Performed By: #### C MP, LIP, ANEU, MDW, PBNP, CBC, TROPHS, GFR, ADIFF #### [address] [address] Chloride [Moles/Vol] 100 mmol/L Normal 98-110 [facility] Comment on above: Performed By: #### C MP, LIP, ANEU, MDW, PBNP, CBC, TROPHS, GFR, ADIFF #### [address] [address] CO2 [Moles/Vol] 27 mmol/L Normal 22-32 [facility] Comment on above: Performed By: #### C MP, LIP, ANEU, MDW, PBNP, CBC, TROPHS, GFR, ADIFF #### [address] [address] Creatinine [Mass/Vol] 4.53 mg/dL High 0.50-1.20 [place] MAIN Comment on above: Result Comment: Test ing performed on Implanet analyzer using enzymatic creatinine methodology. Performed By: #### C MP, LIP, ANEU, MDW, PBNP, CBC, TROPHS, GFR, ADIFF #### [address] [address] Electrolyte Balance 13.0 mEq/L Normal 4.0-15.0 [facility] MAIN Comment on above: Performed By: #### C MP, LIP, ANEU, MDW, PBNP, CBC, TROPHS, GFR, ADIFF #### [place] [id number] Glucose [Mass/Vol] 116 mg/dL High 70-110 [facility] Comment on above: Performed By: #### C MP, LIP, ANEU, MDW, PBNP, CBC, TROPHS, GFR, ADIFF #### [place] [id number] Potassium [Moles/Vol] 4.5 mmol/L Normal 3.5-5.0 [place] MAIN Comment on above: Result Comment: Spec imen slightly hemolyzed. Performed By: #### C MP, LIP, ANEU, MDW, PBNP, CBC, TROPHS, GFR, ADIFF #### [place] [phone] Sodium [Moles/Vol] 140 mmol/L Normal 136-145 [facility] Comment on above: Performed By: #### C MP, LIP, ANEU, MDW, PBNP, CBC, TROPHS, GFR, ADIFF #### [place] [phone] Urea nitrogen [Mass/Vol] 30.0 mg/dL High 8.0-22.0 [facility] Comment on above: Performed By: #### C MP, LIP, ANEU, MDW, PBNP, CBC, TROPHS, GFR, ADIFF #### [address] [address] CBCon 11-11-2024 Erythrocyte distribution width (RBC) [Ratio] 17.5 % High 11.5-15.5 [facility]IN Comment on above: Performed By: #### C MP, LIP, ANEU, MDW, PBNP, CBC, TROPHS, GFR, ADIFF #### [place] [phone] Hematocrit (Bld) [Volume fraction] 28.5 % Low 34.0-46.0 [facility] Comment on above: Performed By: #### C MP, LIP, ANEU, MDW, PBNP, CBC, TROPHS, GFR, ADIFF #### [place] [id number] Hgb 9.6 G/dL Low 12.0-16.0 [facility] Comment on above: Performed By: #### C MP, LIP, ANEU, MDW, PBNP, CBC, TROPHS, GFR, ADIFF #### [place] [phone] MCH (RBC) [Entitic mass] 32.2 pg Normal 27.0-33.0 [facility] Comment on above: Performed By: #### C MP, LIP, ANEU, MDW, PBNP, CBC, TROPHS, GFR, ADIFF #### [address] [address] MCHC 33.9 G/dL Normal 32.0-36.0 [facility] Comment on above: Performed By: #### C MP, LIP, ANEU, MDW, PBNP, CBC, TROPHS, GFR, ADIFF #### [place] [phone] MCV (RBC) [Entitic vol] 95.2 fL Normal 80.0-99.0 [facility] Comment on above: Performed By: #### C MP, LIP, ANEU, MDW, PBNP, CBC, TROPHS, GFR, ADIFF #### [place] [id number] Platelet 147 10 3/mcL Low 150-450 [facility] Comment on above: Performed By: #### C MP, LIP, ANEU, MDW, PBNP, CBC, TROPHS, GFR, ADIFF #### [place] [phone] Platelet mean volume (Bld) [Entitic vol] 10.9 fL High 6.6-10.5 [facility] Comment on above: Performed By: #### C MP, LIP, PAULINE, MDW, PBNP, CBC, TROPHS, GFR, ADIFF #### [place] [address] RBC 2.99 10 6/mcL Low 4.10-5.30 [facility] Comment on above: Performed By: #### C MP, LIP, PAULINE, MDW, PBNP, CBC, TROPHS, GFR, ADIFF #### [facility] [address] [place] [address] WBC 6.8 10 3/mcL Normal 4.5-10.8 [facility] Comment on above: Performed By: #### C MP, LIP, PAULINE, MDW, PBNP, CBC, TROPHS, GFR, ADIFF #### [address] [address] LABORATORYOrdered By: Allegra Ponce on 11-11-2024 Glucose [Mass/Vol] 255 mg/dL High 70 - 110 mg/dL [facility] Work Phone: Blood Glucose Testing Reason Routine (11/11/24 4:50 AM) [facility] Work Phone: Glucose [Mass/Vol] 117 mg/dL [facility] Work Phone: LABORATORYOrdered By: Brigid Julian on 11-11-2024 Glucose [Mass/Vol] 200 mg/dL High 70 - 110 mg/dL [facility] Work Phone: LABORATORYOrdered By: SYSTEM SYSTEM on 11-11-2024 Basophils (Bld) [#/Vol] 0.0 103/mcL Normal 0.0 - 0.3 10^3/mcL AH Workflow SS Basophils/100 WBC (Bld) 0.7 % Normal 0.0 - 2.5 % AH Workflow SS Calcium [Mass/Vol] 8.4 mg/dL Low 8.7 - 10. 4 mg/dL AH ADM SS Chloride [Moles/Vol] 100 mmol/L Normal 98 - 11 0 mEq/L AH ADM SS CO2 [Moles/Vol] 27 mmol/L Normal 22 - 32 mEq/L AH ADM SS Creatinine [Mass/Vol] 4.53 mg/dL High 0.50 - 1.20 mg/dL ADM SS Comment on above: Interpretive Data: T esting performed on Implanet analyzer using enzymatic creatinine methodology. Electrolyte Balance 13.0 mEq/L Normal 4.0 - 15 .0 mEq/L ADM SS Eosinophils (Bld) [#/Vol] 0.5 103/mcL Normal 0.0 - 0.7 10^3/mcL Workflow SS Eosinophils/100 WBC (Bld) 6.7 % High 0.0 - 6.0 % Workflow SS Erythrocyte distribution width (RBC) [Ratio] 17.5 % High 11.5 - 15.5 % Workflow SS Estimated Glomerular Filtration Rate 11 ml/min/1.73sqm Invalid Interpretation Code Chemistry S Comment on above: Interpretive Data: [...] to calculate the eGFR results. Glucose [Mass/Vol] 116 mg/dL High 70 - 110 mg/dL ADM SS Hematocrit (Bld) [Volume fraction] 28.5 % Low 34.0 - 46.0 % Workflow SS Hemoglobin (Bld) [Mass/Vol] 9.6 G/dL Low 12.0 - 16.0 G/dL Workflow SS Lymphocytes (Bld) [#/Vol] 0.6 103/mcL Low 0.9 - 4.3 10^3/mcL Workflow SS Lymphocytes/100 WBC (Bld) 8.6 % Low 20.0 - 40.0 % Workflow SS MCH (RBC) [Entitic mass] 32.2 pg Normal 27.0 - 33.0 pg Workflow SS MCHC 33.9 G/dL Normal 32.0 - 36.0 G/dL Workflow SS MCV (RBC) [Entitic vol] 95.2 fL Normal 80.0 - 99.0 fL Workflow SS Monocytes (Bld) [#/Vol] 1.0 103/mcL Normal 0.1 - 1.4 10^3/mcL Workflow SS Monocytes/100 WBC (Bld) 14.6 % High 2.0 - 13.0 % Workflow SS Neutrophils (Bld) [#/Vol] 4.7 103/mcL Normal 2.3 - 8.1 10^3/mcL Workflow SS Neutrophils/100 WBC (Bld) 69.4 % Normal 50.0 - 75.0 % Workflow SS Platelet mean volume (Bld) [Entitic vol] 10.9 fL High 6.6 - 10.5 fL Workflow SS Platelets (Bld) [#/Vol] 147 103/mcL Low 150 - 450 10^3/mcL Workflow SS Potassium [Moles/Vol] 4.5 mmol/L Normal 3.5 - 5.0 mEq/L ADM SS Comment on above: Result Comment: Spec imen slightly hemolyzed. RBC (Bld) [#/Vol] 2.99 106/mcL Low 4.10 - 5.3 0 10^6/mcL Workflow SS Sodium [Moles/Vol] 140 mmol/L Normal 136 - 145 mEq/L ADM SS Urea nitrogen [Mass/Vol] 30.0 mg/dL High 8.0 - 22.0 mg/dL ADM SS Urea nitrogen/Creatinine [Mass ratio] 6.6 ratio Low 10.0 - 22.0 ratio ADM SS WBC (Bld) [#/Vol] 6.8 103/mcL Normal 4.5 - 10.8 10^3/mcL Workflow SS .Auto Diffon 11-10-2024 Basophil, Absolute 0.0 10 3/mcL Normal 0.0-0.3 [facility] Comment on above: Performed By: #### C PRESTON, CHRISTOPHER, PAULINE, W, PBNP, CBC, TROPHS, GFR, ADIFF #### [facility] [address] [place] [address] Basophils/100 WBC (Bld) 0.6 % Normal 0.0-2.5 [facility] Comment on above: Performed By: #### C PRESTON, CHRISTOPHER, PAULINE, MDW, PBNP, CBC, TROPHS, GFR, ADIFF #### [address] [address] Eosinophil, Absolute 0.3 10 3/mcL Normal 0.0-0.7 [facility]IN Comment on above: Performed By: #### C MP, LIP, ANEU, MDW, PBNP, CBC, TROPHS, GFR, ADIFF #### [address] [address] Eosinophils/100 WBC (Bld) 4.3 % Normal 0.0-6.0 [facility] Comment on above: Performed By: #### C MP, LIP, ANEU, MDW, PBNP, CBC, TROPHS, GFR, ADIFF #### [address] [address] Lymphocyte, Absolute 0.4 10 3/mcL Low 0.9-4.3 [facility] Comment on above: Performed By: #### C MP, LIP, ANEU, MDW, PBNP, CBC, TROPHS, GFR, ADIFF #### [address] [address] Lymphocytes/100 WBC (Bld) 4.7 % Low 20.0-40.0 [facility] Comment on above: Performed By: #### C MP, LIP, ANEU, MDW, PBNP, CBC, TROPHS, GFR, ADIFF #### [address] [address] Monocyte, Absolute 0.8 10 3/mcL Normal 0.1-1.4 [facility] Comment on above: Performed By: #### C MP, LIP, ANEU, MDW, PBNP, CBC, TROPHS, GFR, ADIFF #### [address] [address] Monocytes/100 WBC (Bld) 10.1 % Normal 2.0-13.0 [facility] Comment on above: Performed By: #### C MP, LIP, ANEU, MDW, PBNP, CBC, TROPHS, GFR, ADIFF #### [address] [address] Neutrophils/100 WBC (Bld) 80.3 % High 50.0-75.0 [facility] Comment on above: Performed By: #### C MP, LIP, ANEU, MDW, PBNP, CBC, TROPHS, GFR, ADIFF #### [address] [address] .GFRon 11-10-2024 Estimated Glomerular Filtration Rate 20 ml/min/1.73sqm Normal [facility] Comment on above: Result Comment: Stages of [...] eGFR results. Performed By: #### C MP, LIP, ANEU, MDW, PBNP, CBC, TROPHS, GFR, ADIFF #### [address] [address] .NEUABSon 11-10-2024 Neutrophil, Absolute 6.3 10 3/mcL Normal 2.3-8.1 [facility] Comment on above: Performed By: #### C MP, LIP, PAULINE, MDW, PBNP, CBC, TROPHS, GFR, ADIFF #### [place] [address] CBCon 11-10-2024 Erythrocyte distribution width (RBC) [Ratio] 18.0 % High 11.5-15.5 [facility] Comment on above: Performed By: #### C MP, LIP, ANEU, MDW, PBNP, CBC, TROPHS, GFR, ADIFF #### [address] [address] Hematocrit (Bld) [Volume fraction] 31.7 % Low 34.0-46.0 [facility] Comment on above: Performed By: #### C MP, LIP, ANEU, MDW, PBNP, CBC, TROPHS, GFR, ADIFF #### [place] [address] Hgb 10.5 G/dL Low 12.0-16.0 [facility] Comment on above: Performed By: #### C MP, LIP, ANEU, MDW, PBNP, CBC, TROPHS, GFR, ADIFF #### [place] [address] MCH (RBC) [Entitic mass] 31.7 pg Normal 27.0-33.0 [facility] Comment on above: Performed By: #### C MP, LIP, ANEU, MDW, PBNP, CBC, TROPHS, GFR, ADIFF #### [place] [address] MCHC 33.2 G/dL Normal 32.0-36.0 [facility] Comment on above: Performed By: #### C MP, LIP, ANEU, MDW, PBNP, CBC, TROPHS, GFR, ADIFF #### [place] [address] MCV (RBC) [Entitic vol] 95.5 fL Normal 80.0-99.0 [facility] Comment on above: Performed By: #### C MP, LIP, ANEU, MDW, PBNP, CBC, TROPHS, GFR, ADIFF #### [place] [address] Platelet 165 10 3/mcL Normal 150-450 [facility] Comment on above: Performed By: #### C MP, LIP, ANEU, MDW, PBNP, CBC, TROPHS, GFR, ADIFF #### [place] [address] Platelet mean volume (Bld) [Entitic vol] 10.4 fL Normal 6.6-10.5 [facility] Comment on above: Performed By: #### C MP, LIP, ANEU, MDW, PBNP, CBC, TROPHS, GFR, ADIFF #### [place] [address] RBC 3.32 10 6/mcL Low 4.10-5.30 [facility] Comment on above: Performed By: #### C MP, LIP, ANEU, MDW, PBNP, CBC, TROPHS, GFR, ADIFF #### [place] [address] WBC 7.8 10 3/mcL Normal 4.5-10.8 [facility] Comment on above: Performed By: #### C MP, LIP, ANEU, MDW, PBNP, CBC, TROPHS, GFR, ADIFF #### [place] [address] CMPon 11-10-2024 Albumin/Globulin [Mass ratio] 0.8 {ratio} Low 0.9-1.6 [facility] Comment on above: Performed By: #### C MP, LIP, ANEU, MDW, PBNP, CBC, TROPHS, GFR, ADIFF #### [place] [address] ALP [Catalytic activity/Vol] 77 U/L Normal 38-126 [facility] Comment on above: Performed By: #### C MP, LIP, ANEU, MDW, PBNP, CBC, TROPHS, GFR, ADIFF #### [place] [address] ALT [Catalytic activity/Vol] 16 U/L Normal 10-49 [facility] Comment on above: Performed By: #### C MP, LIP, ANEU, MDW, PBNP, CBC, TROPHS, GFR, ADIFF #### [place] [id number] AST [Catalytic activity/Vol] 34 U/L Normal 8-34 [facility] Comment on above: Performed By: #### C MP, LIP, ANEU, MDW, PBNP, CBC, TROPHS, GFR, ADIFF #### [place] [address] Bili Total 0.80 mg/dL Normal 0.20-1.20 [facility] Comment on above: Result Comment: Use of this assay is not recommended for patients undergoing treatment with eltrombopag due to the potential for falsely elevated results. Performed By: #### C MP, LIP, ANEU, MDW, PBNP, CBC, TROPHS, GFR, ADIFF #### [facility] [address] [place] [phone] Globulin 3.9 G/dL Normal 2.5-4.2 [facility] Comment on above: Performed By: #### C MP, LIP, ANEU, MDW, PBNP, CBC, TROPHS, GFR, ADIFF #### [facility] [address] [place] [id number] Total Protein 7.2 G/dL Normal 5.7-8.2 [facility] Comment on above: Performed By: #### C MP, LIP, ANEU, MDW, PBNP, CBC, TROPHS, GFR, ADIFF #### [facility] [address] [place] [id number] LABORATORYOrdered By: Teri Cisneros on 11-10-2024 Blood Glucose Testing Reason Routine (11/10/24 8:52 PM) [facility] Work Phone: LABORATORYOrdered By: SYSTEM SYSTEM on 11-10-2024 Albumin/Globulin [Mass ratio] 0.8 {ratio} Low 0.9 - 1.6 ratio ADM SS ALP [Catalytic activity/Vol] 77 U/L Normal 38 - 126 U/L ADM SS ALT No additional P-5'-P [Catalytic activity/Vol] 16 U/L Normal 10 - 49 U/L ADM SS AST [Catalytic activity/Vol] 34 U/L Normal 8 - 34 U/L ADM SS Basophils (Bld) [#/Vol] 0.0 103/mcL Normal 0.0 - 0.3 10^3/mcL Workflow SS Basophils/100 WBC (Bld) 0.6 % Normal 0.0 - 2.5 % Workflow SS Bilirubin [Mass/Vol] 0.80 mg/dL Normal 0.20 - 1.20 mg/dL ADM SS Comment on above: Interpretive Data: U se of this assay is not recommended for patients undergoing treatment with eltrombopag due to the potential for falsely elevated results. Eosinophils (Bld) [#/Vol] 0.3 103/mcL Normal 0.0 - 0.7 10^3/mcL Workflow SS Eosinophils/100 WBC (Bld) 4.3 % Normal 0.0 - 6.0 % AH Workflow SS Erythrocyte distribution width (RBC) [Ratio] 18.0 % High 11.5 - 15.5 % AH Workflow SS Estimated Glomerular Filtration Rate 20 ml/min/1.73sqm Invalid Interpretation Code Chemistry S Comment on above: Interpretive Data: [...] factor to calculate the eGFR results. Globulin 3.9 G/dL Normal 2.5 - 4.2 G/dL ADM SS Hematocrit (Bld) [Volume fraction] 31.7 % Low 34.0 - 46.0 % AH Workflow SS Hemoglobin (Bld) [Mass/Vol] 10.5 G/dL Low 12.0 - 16.0 G/dL AH Workflow SS Lymphocytes (Bld) [#/Vol] 0.4 103/mcL Low 0.9 - 4.3 10^3/mcL AH Workflow SS Lymphocytes/100 WBC (Bld) 4.7 % Low 20.0 - 40.0 % AH Workflow SS MCH (RBC) [Entitic mass] 31.7 pg Normal 27.0 - 33.0 pg AH Workflow SS MCHC 33.2 G/dL Normal 32.0 - 36.0 G/dL AH Workflow SS MCV (RBC) [Entitic vol] 95.5 fL Normal 80.0 - 99.0 fL AH Workflow SS Monocytes (Bld) [#/Vol] 0.8 103/mcL Normal 0.1 - 1.4 10^3/mcL AH Workflow SS Monocytes/100 WBC (Bld) 10.1 % Normal 2.0 - 13.0 % AH Workflow SS Neutrophils (Bld) [#/Vol] 6.3 103/mcL Normal 2.3 - 8.1 10^3/mcL AH Workflow SS Neutrophils/100 WBC (Bld) 80.3 % High 50.0 - 75.0 % Workflow SS Phosphate [Mass/Vol] 3.5 mg/dL Normal 2.4 - 5 .1 mg/dL ADM SS Platelet mean volume (Bld) [Entitic vol] 10.4 fL Normal 6.6 - 10.5 fL Workflow SS Platelets (Bld) [#/Vol] 165 103/mcL Normal 150 - 450 10^3/mcL Workflow SS Protein [Mass/Vol] 7.2 G/dL Normal 5.7 - 8.2 G/dL ADM SS RBC (Bld) [#/Vol] 3.32 106/mcL Low 4.10 - 5.3 0 10^6/mcL Workflow SS Troponin I.cardiac DL <= 0.01 ng/mL [Mass/Vol] 228 ng/L High 0 - 34 ng/L ADM SS Comment on above: Interpretive Data: High Sensitive Troponin I Reference Ranges: Female: 0-34 ng/L Male: 0-54 ng/L Testing performed on Merchant View analyzer using direct chemiluminescent technology. WBC (Bld) [#/Vol] 7.8 103/mcL Normal 4.5 - 10.8 10^3/mcL Workflow SS LABORATORYOrdered By: Wyatt Chaney on 11-10-2024 Blood Glucose Testing Reason Routine (11/10/24 7:10 AM) [facility] Work Phone: Laboratory - Chemistry and C hemistry - challengeOrdered By: Teri Cisneros on 11-10-2024 Glucose [Mass/Vol] 194 mg/dL [facility] Work Phone: Laboratory - Chemistry and C hemistry - challengeOrdered By: SYSTEM SYSTEM on 11-10-2024 Albumin BCP dye [Mass/Vol] 3.3 G/dL Normal 3.2 - 4.8 G/dL ADM SS Calcium [Mass/Vol] 9.5 mg/dL Normal 8.7 - 10. 4 mg/dL ADM SS Chloride [Moles/Vol] 98 mmol/L Normal 98 - 11 0 mEq/L ADM SS CO2 [Moles/Vol] 30 mmol/L Normal 22 - 32 mEq/L ADM SS Creatinine [Mass/Vol] 2.72 mg/dL High 0.50 - 1.20 mg/dL [facility] Comment on above: Interpretive Data: T esting performed on Implanet analyzer using enzymatic creatinine methodology. Glucose [Mass/Vol] 111 mg/dL High 70 - 110 mg/dL ADM Potassium [Moles/Vol] 4.6 mmol/L Normal 3.5 - 5.0 mEq/L ADM SS Sodium [Moles/Vol] 141 mmol/L Normal 136 - 145 mEq/L ADM SS Urea nitrogen [Mass/Vol] 15.0 mg/dL Normal 8.0 - 22.0 mg/dL ADM SS Urea nitrogen/Creatinine [Mass ratio] 5.5 ratio Low 10.0 - 22.0 ratio ADM No Panel InformationOrdered By: SYSTEM SYSTEM on 11-10-2024 Electrolyte Balance 13.0 mEq/L Normal 4.0 - 15 .0 mEq/L [facility] No Panel Informationon 11-10 Legionella Urine Ag Presumptive negative for L. pneumophila serogroup 1 antigen in urine, suggesting no recent or current infection. Legionnaire's disease cannot be ruled out since other serogroups and species may also cause disease. [facility] Work Phone: Streptococcus Pneumoniae Urine Antig Presumptive negative for pneumococcal pneumonia, suggesting no current or recent pneumococcal infection. Infection due to Strep pneumoniae cannot be ruled out since the antigen present in the sample may be below the detection limit of the test. [facility] Work Phone: Comment on above: This test has not be en evaluated on patients taking antibiotics for greater than 24 hours or on patients who have recently completed an antibiotic regimen. The accuracy of this test has not been proven in young children. RFPon 11-10-2024 Albumin Level 3.3 G/dL Normal 3.2-4.8 [facility] Comment on above: Performed By: #### C PRESTON, CHRISTOPHER, PAULINE, MDW, PBNP, CBC, TROPHS, GFR, ADIFF #### [facility] [address] [place] [id number] BUN/Creatinine Ratio 5.5 ratio Low 10.0-22.0 [facility] Comment on above: Performed By: #### C PRESTON, CHRISTOPHER, PAULINE, MDW, PBNP, CBC, TROPHS, GFR, ADIFF #### [address] [address] Calcium [Mass/Vol] 9.5 mg/dL Normal 8.7-10.4 [facility] Comment on above: Performed By: #### C MP, LIP, ANEU, MDW, PBNP, CBC, TROPHS, GFR, ADIFF #### [address] [address] Chloride [Moles/Vol] 98 mmol/L Normal 98-110 [facility] Comment on above: Performed By: #### C MP, LIP, ANEU, MDW, PBNP, CBC, TROPHS, GFR, ADIFF #### [address] [address] CO2 [Moles/Vol] 30 mmol/L Normal 22-32 [facility] Comment on above: Performed By: #### C MP, LIP, ANEU, MDW, PBNP, CBC, TROPHS, GFR, ADIFF #### [address] [address] Creatinine [Mass/Vol] 2.72 mg/dL High 0.50-1.20 [place] [facility] Comment on above: Result Comment: Test ing performed on Implanet analyzer using enzymatic creatinine methodology. Performed By: #### C MP, LIP, ANEU, MDW, PBNP, CBC, TROPHS, GFR, ADIFF #### [address] [address] Electrolyte Balance 13.0 mEq/L Normal 4.0-15.0 [facility] Comment on above: Performed By: #### C MP, LIP, ANEU, MDW, PBNP, CBC, TROPHS, GFR, ADIFF #### [address] [address] Glucose [Mass/Vol] 111 mg/dL High 70-110 [facility] Comment on above: Performed By: #### C MP, LIP, ANEU, MDW, PBNP, CBC, TROPHS, GFR, ADIFF #### [address] [address] Phosphate [Mass/Vol] 3.5 mg/dL Normal 2.4-5.1 [facility] Comment on above: Performed By: #### C MP, LIP, ANEU, MDW, PBNP, CBC, TROPHS, GFR, ADIFF #### [address] [address] Potassium [Moles/Vol] 4.6 mmol/L Normal 3.5-5.0 [place] [facility] Comment on above: Performed By: #### C MP, LIP, ANEU, MDW, PBNP, CBC, TROPHS, GFR, ADIFF #### [address] [address] Sodium [Moles/Vol] 141 mmol/L Normal 136-145 [facility] Comment on above: Performed By: #### C MP, LIP, ANEU, MDW, PBNP, CBC, TROPHS, GFR, ADIFF #### [address] [address] Urea nitrogen [Mass/Vol] 15.0 mg/dL Normal 8.0-22.0 [facility] Comment on above: Performed By: #### C MP, LIP, ANEU, MDW, PBNP, CBC, TROPHS, GFR, ADIFF #### [address] [address] TROPHSon 11-10-2024 High Sensitivity Troponin I 228 ng/L High 0-34 [facility] Comment on above: Result Comment: High Sensitive Troponin I Reference Ranges: Female: 0-34 ng/L Male: 0-54 ng/L Testing performed on Merchant View analyzer using direct chemiluminescent technology. Performed By: #### C MP, LIP, ANEU, MDW, PBNP, CBC, TROPHS, GFR, ADIFF #### [address] [address] .Auto Diffon 11-09-2024 Basophil, Absolute 0.0 10 3/mcL Normal 0.0-0.3 [facility] Comment on above: Performed By: #### C MP, LIP, ANEU, MDW, PBNP, CBC, TROPHS, GFR, ADIFF #### [place] [id number] Basophils/100 WBC (Bld) 0.2 % Normal 0.0-2.5 [facility] Comment on above: Performed By: #### C MP, LIP, ANEU, MDW, PBNP, CBC, TROPHS, GFR, ADIFF #### [address] [address] Eosinophil, Absolute 0.2 10 3/mcL Normal 0.0-0.7 [facility] Comment on above: Performed By: #### C MP, LIP, ANEU, MDW, PBNP, CBC, TROPHS, GFR, ADIFF #### [address] [address] Eosinophils/100 WBC (Bld) 1.7 % Normal 0.0-6.0 [facility] Comment on above: Performed By: #### C MP, LIP, ANEU, MDW, PBNP, CBC, TROPHS, GFR, ADIFF #### [address] [address] Lymphocyte, Absolute 0.3 10 3/mcL Low 0.9-4.3 [facility] Comment on above: Performed By: #### C MP, LIP, ANEU, MDW, PBNP, CBC, TROPHS, GFR, ADIFF #### [address] [address] Lymphocytes/100 WBC (Bld) 2.8 % Low 20.0-40.0 [facility] Comment on above: Performed By: #### C MP, LIP, ANEU, MDW, PBNP, CBC, TROPHS, GFR, ADIFF #### [address] [address] Monocyte, Absolute 1.3 10 3/mcL Normal 0.1-1.4 [facility] Comment on above: Performed By: #### C MP, LIP, ANEU, MDW, PBNP, CBC, TROPHS, GFR, ADIFF #### [address] [address] Monocytes/100 WBC (Bld) 10.5 % Normal 2.0-13.0 [facility] Comment on above: Performed By: #### C MP, LIP, ANEU, MDW, PBNP, CBC, TROPHS, GFR, ADIFF #### [address] [address] Neutrophils/100 WBC (Bld) 84.8 % High 50.0-75.0 [facility] Comment on above: Performed By: #### C MP, LIP, ANEU, MDW, PBNP, CBC, TROPHS, GFR, ADIFF #### [address] [address] .GFRon 11-09-2024 Estimated Glomerular Filtration Rate 6 ml/min/1.73sqm [facility] Comment on above: Result Comment: Stages of [...] eGFR results. Performed By: #### C MP, LIP, ANEU, MDW, PBNP, CBC, TROPHS, GFR, ADIFF #### [address] [address] .NEUABSon 11-09-2024 Neutrophil, Absolute 10.3 10 3/mcL High 2.3-8.1 [facility] Comment on above: Performed By: #### C MP, LIP, ANEU, MDW, PBNP, CBC, TROPHS, GFR, ADIFF #### [address] [address] BGon 11-09-2024 Base excess Calc (Bld) [Moles/Vol] 1.8 mmol/L [facility] Comment on above: Performed By: #### C MP, LIP, ANEU, MDW, PBNP, CBC, TROPHS, GFR, ADIFF #### [address] [address] CO2 [Moles/Vol] 28.7 mmol/L Normal 22.0-30.0 [facility] Comment on above: Performed By: #### C MP, LIP, ANEU, MDW, PBNP, CBC, TROPHS, GFR, ADIFF #### [address] [address] HCO3 (Bld) [Moles/Vol] 27.3 mmol/L Normal 21.0-29.0 [facility] Comment on above: Performed By: #### C MP, LIP, ANEU, MDW, PBNP, CBC, TROPHS, GFR, ADIFF #### [place] [phone] Oxygen (Bld) [Partial pressure] 59.7 mm[Hg] Low 74.0-108.0 [facility] Comment on above: Performed By: #### C MP, LIP, ANEU, MDW, PBNP, CBC, TROPHS, GFR, ADIFF #### [place] [phone] Oxygen saturation in Blood 89.2 % Low 92.0-96.0 [facility] Comment on above: Performed By: #### C MP, LIP, ANEU, MDW, PBNP, CBC, TROPHS, GFR, ADIFF #### [address] [address] pCO2 46.6 mmHg High 32.0-46.0 [facility] Comment on above: Performed By: #### C MP, LIP, ANEU, MDW, PBNP, CBC, TROPHS, GFR, ADIFF #### [address] [address] pH (Bld) 7.385 [pH] Normal 7.380-7.460 [facility] Comment on above: Performed By: #### C MP, LIP, ANEU, MDW, PBNP, CBC, TROPHS, GFR, ADIFF #### [address] [address] CBCon 11-09-2024 Erythrocyte distribution width (RBC) [Ratio] 17.8 % High 11.5-15.5 [facility] Comment on above: Performed By: #### C MP, LIP, ANEU, MDW, PBNP, CBC, TROPHS, GFR, ADIFF #### [place] [address] Hematocrit (Bld) [Volume fraction] 34.0 % Normal 34.0-46.0 [facility] Comment on above: Performed By: #### C MP, LIP, ANEU, MDW, PBNP, CBC, TROPHS, GFR, ADIFF #### [place] [address] Hgb 11.2 G/dL Low 12.0-16.0 [facility] Comment on above: Performed By: #### C MP, LIP, ANEU, MDW, PBNP, CBC, TROPHS, GFR, ADIFF #### [place] [address] MCH (RBC) [Entitic mass] 31.3 pg Normal 27.0-33.0 [facility] Comment on above: Performed By: #### C MP, LIP, ANEU, MDW, PBNP, CBC, TROPHS, GFR, ADIFF #### [place] [address] MCHC 32.8 G/dL Normal 32.0-36.0 [facility] Comment on above: Performed By: #### C MP, LIP, ANEU, MDW, PBNP, CBC, TROPHS, GFR, ADIFF #### [place] [address] MCV (RBC) [Entitic vol] 95.4 fL Normal 80.0-99.0 [facility] Comment on above: Performed By: #### C MP, LIP, ANEU, MDW, PBNP, CBC, TROPHS, GFR, ADIFF #### [place] [address] Platelet 164 10 3/mcL Normal 150-450 [facility] Comment on above: Performed By: #### C MP, LIP, ANEU, MDW, PBNP, CBC, TROPHS, GFR, ADIFF #### [place] [address] Platelet mean volume (Bld) [Entitic vol] 10.5 fL Normal 6.6-10.5 [facility] Comment on above: Performed By: #### C MP, LIP, ANEU, MDW, PBNP, CBC, TROPHS, GFR, ADIFF #### [place] [phone] RBC 3.57 10 6/mcL Low 4.10-5.30 [facility] Comment on above: Performed By: #### C MP, LIP, ANEU, MDW, PBNP, CBC, TROPHS, GFR, ADIFF #### [place] [address] WBC 12.2 10 3/mcL High 4.5-10.8 [facility] Comment on above: Performed By: #### C MP, LIP, ANEU, MDW, PBNP, CBC, TROPHS, GFR, ADIFF #### [address] [address] CMPon 11-09-2024 Albumin Level 3.5 G/dL Normal 3.2-4.8 [facility] Comment on above: Performed By: #### C MP, LIP, ANEU, MDW, PBNP, CBC, TROPHS, GFR, ADIFF #### [place] [address] Albumin/Globulin [Mass ratio] 1.0 {ratio} Normal 0.9-1.6 [facility] Comment on above: Performed By: #### C MP, LIP, ANEU, MDW, PBNP, CBC, TROPHS, GFR, ADIFF #### [address] [address] ALP [Catalytic activity/Vol] 83 U/L Normal 38-126 [facility] Comment on above: Performed By: #### C MP, LIP, ANEU, MDW, PBNP, CBC, TROPHS, GFR, ADIFF #### [place] [phone] ALT [Catalytic activity/Vol] 18 U/L Normal 10-49 [facility] Comment on above: Performed By: #### C MP, LIP, ANEU, MDW, PBNP, CBC, TROPHS, GFR, ADIFF #### [address] [address] AST [Catalytic activity/Vol] 28 U/L Normal 8-34 [facility] Comment on above: Performed By: #### C MP, LIP, ANEU, MDW, PBNP, CBC, TROPHS, GFR, ADIFF #### [address] [address] Bili Total 0.70 mg/dL Normal 0.20-1.20 [facility] Comment on above: Result Comment: Use of this assay is not recommended for patients undergoing treatment with eltrombopag due to the potential for falsely elevated results. Performed By: #### C MP, LIP, ANEU, MDW, PBNP, CBC, TROPHS, GFR, ADIFF #### [address] [address] BUN/Creatinine Ratio 8.3 ratio Low 10.0-22.0 [facility] Comment on above: Performed By: #### C MP, LIP, ANEU, MDW, PBNP, CBC, TROPHS, GFR, ADIFF #### [address] [address] Calcium [Mass/Vol] 8.7 mg/dL Normal 8.7-10.4 [facility] Comment on above: Performed By: #### C MP, LIP, ANEU, MDW, PBNP, CBC, TROPHS, GFR, ADIFF #### [address] [address] Chloride [Moles/Vol] 97 mmol/L Low 98-110 [facility] Comment on above: Performed By: #### C MP, LIP, ANEU, MDW, PBNP, CBC, TROPHS, GFR, ADIFF #### [address] [address] CO2 [Moles/Vol] 28 mmol/L Normal 22-32 [facility] Comment on above: Performed By: #### C MP, LIP, ANEU, MDW, PBNP, CBC, TROPHS, GFR, ADIFF #### [address] [address] Creatinine [Mass/Vol] 7.85 mg/dL High 0.50-1.20 [place] [facility] Comment on above: Result Comment: Test ing performed on Implanet analyzer using enzymatic creatinine methodology. Performed By: #### C MP, LIP, ANEU, MDW, PBNP, CBC, TROPHS, GFR, ADIFF #### [address] [address] Electrolyte Balance 16.0 mEq/L High 4.0-15.0 [facility] Comment on above: Performed By: #### C MP, LIP, ANEU, MDW, PBNP, CBC, TROPHS, GFR, ADIFF #### [address] [address] Globulin 3.5 G/dL Normal 2.5-4.2 [facility] Comment on above: Performed By: #### C MP, LIP, ANEU, MDW, PBNP, CBC, TROPHS, GFR, ADIFF #### [place] [phone] Glucose [Mass/Vol] 173 mg/dL High 70-110 [facility] Comment on above: Performed By: #### C MP, LIP, ANEU, MDW, PBNP, CBC, TROPHS, GFR, ADIFF #### [address] [address] Potassium [Moles/Vol] 5.3 mmol/L High 3.5-5.0 [place] [facility] Comment on above: Performed By: #### C MP, LIP, ANEU, MDW, PBNP, CBC, TROPHS, GFR, ADIFF #### [address] [address] Sodium [Moles/Vol] 141 mmol/L Normal 136-145 [facility] Comment on above: Performed By: #### C MP, LIP, ANEU, MDW, PBNP, CBC, TROPHS, GFR, ADIFF #### [address] [address] Total Protein 7.0 G/dL Normal 5.7-8.2 [facility] Comment on above: Performed By: #### C MP, LIP, ANEU, MDW, PBNP, CBC, TROPHS, GFR, ADIFF #### [place] [address] Urea nitrogen [Mass/Vol] 65.0 mg/dL High 8.0-22.0 [facility] Comment on above: Performed By: #### C MP, CHRISTOPHER, PAULINE, MDW, PBNP, CBC, TROPHS, GFR, ADIFF #### [place] [address] HBSAGon 11-09-2024 Hep B Surf Ag Non-Reactive Normal Non-Reactive [facility] Comment on above: Performed By: #### C PRESTON, CHRISTOPHER, PAULINE, MDW, PBNP, CBC, TROPHS, GFR, ADIFF #### [place] [address] Art 11-09-2024 Potassium [Moles/Vol] 5.4 mmol/L High 3.5-5.0 [place] [facility] Comment on above: Performed By: #### C PRESTON, CHRISTOPHER, PAULINE, MDW, PBNP, CBC, TROPHS, GFR, ADIFF #### [place] [address] LABORATORYOrdered By: Chaparrita Mccarty on 11-09-2024 HBV surface Ag IA Ql Non-Reactive (11/09/24 12:49 PM) Normal Non-Reactive ADM SS LABORATORYOrdered By: SYSTEM SYSTEM on 11-09-2024 Troponin I.cardiac DL <= 0.01 ng/mL [Mass/Vol] 573 ng/L High 0 - 34 ng/L ADM Comment on above: Interpretive Data: High Sensitive Troponin I Reference Ranges: Female: 0-34 ng/L Male: 0-54 ng/L Testing performed on Mer[employer] View analyzer using direct chemiluminescent technology. Albumin BCP dye [Mass/Vol] 3.5 G/dL Normal 3.2 - 4.8 G/dL ADM SS Albumin/Globulin [Mass ratio] 1.0 {ratio} Normal 0.9 - 1.6 ratio ADM SS ALP [Catalytic activity/Vol] 83 U/L Normal 38 - 126 U/L ADM SS ALT No additional P-5'-P [Catalytic activity/Vol] 18 U/L Normal 10 - 49 U/L ADM SS AST [Catalytic activity/Vol] 28 U/L Normal 8 - 34 U/L ADM SS Basophils (Bld) [#/Vol] 0.0 103/mcL Normal 0.0 - 0.3 10^3/mcL Workflow SS Basophils/100 WBC (Bld) 0.2 % Normal 0.0 - 2.5 % Workflow SS Bilirubin [Mass/Vol] 0.70 mg/dL Normal 0.20 - 1.20 mg/dL ADM SS Comment on above: Interpretive Data: U se of this assay is not recommended for patients undergoing treatment with eltrombopag due to the potential for falsely elevated results. Eosinophils (Bld) [#/Vol] 0.2 103/mcL Normal 0.0 - 0.7 10^3/mcL Workflow SS Eosinophils/100 WBC (Bld) 1.7 % Normal 0.0 - 6.0 % Workflow SS Erythrocyte distribution width (RBC) [Ratio] 17.8 % High 11.5 - 15.5 % Workflow SS Estimated Glomerular Filtration Rate 6 ml/min/1.73sqm Invalid Interpretation Code Chemistry S Comment on above: Interpretive Data: [...] factor to calculate the eGFR results. Globulin 3.5 G/dL Normal 2.5 - 4.2 G/dL ADM SS Hematocrit (Bld) [Volume fraction] 34.0 % Normal 34.0 - 46.0 % Workflow SS Hemoglobin (Bld) [Mass/Vol] 11.2 G/dL Low 12.0 - 16.0 G/dL Workflow SS Lymphocytes (Bld) [#/Vol] 0.3 103/mcL Low 0.9 - 4.3 10^3/mcL Workflow SS Lymphocytes/100 WBC (Bld) 2.8 % Low 20.0 - 40.0 % AH Workflow SS MCH (RBC) [Entitic mass] 31.3 pg Normal 27.0 - 33.0 pg AH Workflow SS MCHC 32.8 G/dL Normal 32.0 - 36.0 G/dL AH Workflow SS MCV (RBC) [Entitic vol] 95.4 fL Normal 80.0 - 99.0 fL AH Workflow SS Monocytes (Bld) [#/Vol] 1.3 103/mcL Normal 0.1 - 1.4 10^3/mcL AH Workflow SS Monocytes/100 WBC (Bld) 10.5 % Normal 2.0 - 13.0 % AH Workflow SS Neutrophils (Bld) [#/Vol] 10.3 103/mcL High 2.3 - 8.1 10^3/mcL AH Workflow SS Neutrophils/100 WBC (Bld) 84.8 % High 50.0 - 75.0 % AH Workflow SS Platelet mean volume (Bld) [Entitic vol] 10.5 fL Normal 6.6 - 10.5 fL AH Workflow SS Platelets (Bld) [#/Vol] 164 103/mcL Normal 150 - 450 10^3/mcL AH Workflow SS Protein [Mass/Vol] 7.0 G/dL Normal 5.7 - 8.2 G/dL AH ADM SS RBC (Bld) [#/Vol] 3.57 106/mcL Low 4.10 - 5.3 0 10^6/mcL AH Workflow SS Troponin I.cardiac DL <= 0.01 ng/mL [Mass/Vol] 478 ng/L High 0 - 34 ng/L ADM SS Comment on above: Interpretive Data: High Sensitive Troponin I Reference Ranges: Female: 0-34 ng/L Male: 0-54 ng/L Testing performed on [employer] IM analyzer using direct chemiluminescent technology. WBC (Bld) [#/Vol] 12.2 103/mcL High 4.5 - 10.8 10^3/mcL Workflow SS LABORATORYOrdered By: Ray Verma on 11-09-2024 CO2 [Moles/Vol] 28.7 mmol/L Normal 22.0 - 30.0 mmol/L Main Rapid Comm SS HCO3 (Bld) [Moles/Vol] 27.3 mmol/L Normal 21.0 - 29.0 mmol/L Main Rapid Comm SS Oxygen (Bld) [Partial pressure] 59.7 mm[Hg] Low 74.0 - 108.0 mm Hg Main Rapid Comm SS pCO2 46.6 mm[Hg] High 32.0 - 46.0 mm Hg Main Rapid Comm SS pH (Bld) 7.385 [pH] Normal 7.380 - 7.460 Main Rapid Comm SS Sodium [Moles/Vol] 1.8 mmol/L Invalid Interpretation Code Main Rapid Comm SS MRSAPCRon 11-09-2024 MRSA (PCR) Detected Abnormal Not Detected [facility] MAIN Comment on above: Result Comment: Note s [id number] Performed By: #### C PRESTON, CHRISTOPHER, PAULINE, MARCELLA, PBNP, CBC, TROPHS, GFR, ADIFF #### [place] [address] MRSA PCR Int See Below Normal [facility] MAIN Comment on above: Result Comment: Clinical Interpretation: Staph aureus DNA detected by Real-Time Polymerase Chain Reaction (PCR). Organism viability can not be determined since free bacterial DNA may persist in the absence of viable organisms. As with all PCR based in vitro diagnostic tests, extremely low levels of target below the limit of detection of the assay may be detected, but results may not be reproducible, and the clinical significance unknown. Infection control will be notified. Performed By: #### C PRESTON, CHRISTOPHER, PAULINE, W, PBNP, CBC, TROPHS, GFR, ADIFF #### [place] [address] MYCOon 11-09-2024 Mycoplasma IgG Positive Normal [facility] MAIN Comment on above: Result Comment: INTE RPRETATION OF MYCOPLASMA IgG BY EIA: Negative: No detectable M. pneumoniae IgG antibody. Positive: Mycoplasma pneumoniae IgG antibody Detected. Equivocal: Equivocal for IgG antibodies to Mycoplasma pneumoniae. Suggest repeat testing in 10-14 days. Performed By: #### C PRESTON, CHRISTOPHER, PAULINE, W, PBNP, CBC, TROPHS, GFR, ADIFF #### [place] [address] Mycoplasma IgM Negative Normal [facility] MA[facility] Comment on above: Result Comment: INTE RPRETATION OF MYCOPLASMA IgM: Negative: IgM to M. pneumoniae Absent, or at levels below the assay limit of detection. Positive: IgM to M. pneumoniae Present. Invalid: Test results are invalid due to invalid internal control. Assay was performed in duplicate. Repeat testing is suggested if clinically indicated. Performed By: #### C PRESTON, CHRISTOPHER, PAULINE, W, PBNP, CBC, TROPHS, GFR, ADIFF #### [place] [id number] [facility] High Sensitivity Troponin I 573 ng/L [address] MAIN Comment on above: Result Comment: High Sensitive Troponin I Reference Ranges: Female: 0-34 ng/L Male: 0-54 ng/L Testing performed on [employer] IM analyzer using direct chemiluminescent technology. Performed By: #### C PRESTON, CHRISTOPHER, PAULINE, MDW, PBNP, CBC, TROPHS, GFR, ADIFF #### [place] [address] High Sensitivity Troponin I 478 ng/L [address] MAIN Comment on above: Result Comment: High Sensitive Troponin I Reference Ranges: Female: 0-34 ng/L Male: 0-54 ng/L Testing performed on [employer] IM analyzer using direct chemiluminescent technology. Performed By: #### C PRESTON, LIP, PAULINE, MDW, PBNP, CBC, TROPHS, GFR, ADIFF #### [place] [address] High Sensitivity Troponin I 390 ng/L [address] MAIN Comment on above: Result Comment: High Sensitive Troponin I Reference Ranges: Female: 0-34 ng/L Male: 0-54 ng/L Testing performed on [employer] IM analyzer using direct chemiluminescent technology. Performed By: #### T [facility] #### [place] [address] XR CHEST 1 VIEWon 11-09-2024 XR CHEST 1 VIEW ORIGINAL EXAMINATION: ONE XRAY VIEW OF THE CHEST11/09/2024 10:45 am COMPARISON: 11/08/2024 HISTORY: ORDERING SYSTEM PROVIDED HISTORY: Reason for Exam: SOB FINDINGS: Enlarged cardiac silhouette and atherosclerosis noted. Peripheral airspace consolidations seen in the central and lower right lung. No pneumothorax visible. No large pleural effusions seen. Bony detail is suboptimal. No aggressive bony lesions. IMPRESSION: Peripheral airspace disease in the right lung is slightly improved. Follow to resolution Interpreted by: Gelacio He MD Preliminary Report By: Gelacio He MD Electronically signed By Gelacio He MD Dictated Date: 11/09/2024 10:53:17 AM Prelim Date: 11/09/2024 10:54:19 AM Sign Date: 11/09/2024 10:54:19 AM Ordering Provider: KYLE Self [facility] .Auto Diffon 11-08-2024 Basophil, Absolute 0.0 10 3/mcL Normal 0.0-0.3 [facility] Comment on above: Performed By: #### C MP, LIP, ANEU, MDW, PBNP, CBC, TROPHS, GFR, ADIFF #### [address] [address] Basophils/100 WBC (Bld) 0.4 % Normal 0.0-2.5 [facility] Comment on above: Performed By: #### C MP, LIP, ANEU, MDW, PBNP, CBC, TROPHS, GFR, ADIFF #### [address] [address] Eosinophil, Absolute 0.1 10 3/mcL Normal 0.0-0.7 [facility] Comment on above: Performed By: #### C MP, LIP, ANEU, MDW, PBNP, CBC, TROPHS, GFR, ADIFF #### [address] [address] Eosinophils/100 WBC (Bld) 1.1 % Normal 0.0-6.0 [facility] Comment on above: Performed By: #### C MP, LIP, ANEU, MDW, PBNP, CBC, TROPHS, GFR, ADIFF #### [address] [address] Lymphocyte, Absolute 0.4 10 3/mcL Low 0.9-4.3 [facility] Comment on above: Performed By: #### C MP, LIP, ANEU, MDW, PBNP, CBC, TROPHS, GFR, ADIFF #### [address] [address] Lymphocytes/100 WBC (Bld) 3.1 % Low 20.0-40.0 [facility] Comment on above: Performed By: #### C MP, LIP, ANEU, MDW, PBNP, CBC, TROPHS, GFR, ADIFF #### [address] [address] Monocyte, Absolute 1.1 10 3/mcL Normal 0.1-1.4 [facility] Comment on above: Performed By: #### C MP, LIP, ANEU, MDW, PBNP, CBC, TROPHS, GFR, ADIFF #### [address] [address] Monocytes/100 WBC (Bld) 8.8 % Normal 2.0-13.0 [facility] Comment on above: Performed By: #### C MP, LIP, ANEU, MDW, PBNP, CBC, TROPHS, GFR, ADIFF #### [address] [address] Neutrophils/100 WBC (Bld) 86.6 % High 50.0-75.0 [facility] Comment on above: Performed By: #### C MP, LIP, ANEU, MDW, PBNP, CBC, TROPHS, GFR, ADIFF #### [address] [address] Basophil, Absolute 0.1 10 3/mcL Normal 0.0-0.3 [facility] Comment on above: Performed By: #### G MARCELLA CARRANZA, TROPHS, BMP, CBC, ANEU, ADIFF #### [address] [address] Basophils/100 WBC (Bld) 0.6 % Normal 0.0-2.5 [facility] Comment on above: Performed By: #### G MD TEREW, TROPHS, BMP, CBC, ANEU, ADIFF #### [address] [address] Eosinophil, Absolute 0.1 10 3/mcL Normal 0.0-0.7 [facility] Comment on above: Performed By: #### G , W, TROPHS, BMP, CBC, ANEU, ADIFF #### [address] [address] Eosinophils/100 WBC (Bld) 0.8 % Normal 0.0-6.0 [facility] Comment on above: Performed By: #### G MARCELLA CARRANZA, TROPHS, BMP, CBC, ANEU, ADIFF #### [address] [address] Lymphocyte, Absolute 0.4 10 3/mcL Low 0.9-4.3 [facility] Comment on above: Performed By: #### G MARCELLA CARRANZA, TROPHS, BMP, CBC, ANEU, ADIFF #### [address] [address] Lymphocytes/100 WBC (Bld) 3.1 % Low 20.0-40.0 [facility] Comment on above: Performed By: #### G MARCELLA CARRANZA, TROPHS, BMP, CBC, ANEU, ADIFF #### [address] [address] Monocyte, Absolute 1.0 10 3/mcL Normal 0.1-1.4 [facility] Comment on above: Performed By: #### G MARCELLA CARRANZA, TROPHS, BMP, CBC, ANEU, ADIFF #### [address] [address] Monocytes/100 WBC (Bld) 7.3 % Normal 2.0-13.0 [facility] Comment on above: Performed By: #### MARCELLA FULLER, TROPHS, BMP, CBC, ANEU, ADIFF #### [address] [address] Neutrophils/100 WBC (Bld) 88.2 % High 50.0-75.0 [facility] Comment on above: Performed By: #### MARCELLA FULLER, TROPHS, BMP, CBC, ANEU, ADIFF #### [address] [address] .GFRon 11-08-2024 Estimated Glomerular Filtration Rate 6 ml/min/1.73sqm Normal [facility] Comment on above: Result Comment: Stages of [...] 15-29 CKD 5 Kidney failure <15 Note: ( live 05/03/2024) the eGFR calculation was updated to the 2020 CKD-EPI creatinine equation without a race factor to calculate the eGFR results. Performed By: #### C MP, LIP, ANEU, MDW, PBNP, CBC, TROPHS, GFR, ADIFF #### [address] [address] Estimated Glomerular Filtration Rate 6 ml/min/1.73sqm Normal [facility] Comment on above: Result Comment: [...] 15-29 CKD 5 Kidney failure <15 Note: ( live 05/03/2024) the eGFR calculation was updated to the 2020 CKD-EPI creatinine equation without a race factor to calculate the eGFR results. Performed By: #### G FR, MDW, TROPHS, BMP, CBC, ANEU, ADIFF #### [facility] [address] [place], [place] [address] .MDWon 11-08-2024 Monocyte Distribution Width 21.30 High 0.00-20.00 [facility] Comment on above: Result Comment: For adults in ED, MDW>20.0 may be associated with a higher risk of sepsis during the first 12hrs of hospital admission Performed By: #### C MP, LIP, ANEU, MDW, PBNP, CBC, TROPHS, GFR, ADIFF #### [address] [place], [place] [address] Monocyte Distribution Width 20.56 High 0.00-20.00 [facility] Comment on above: Result Comment: For adults in ED, MDW>20.0 may be associated with a higher risk of sepsis during the first 12hrs of hospital admission Performed By: #### G MARCELLA CARRANZA, TROPHS, BMP, CBC, ANEU, ADIFF #### [address] [address] .Morphon 11-08-2024 Anisocytosis Ql (Bld) 1+ Normal [facility] Comment on above: Performed By: #### MARCELLA FULLER, TROPHS, BMP, CBC, ANEU, ADIFF #### [place] [address] Hypochrom 1+ Normal [facility] Comment on above: Performed By: #### MARCELLA FULLER, TROPHS, BMP, CBC, ANEU, ADIFF #### [place] [address] Large Platelets Few Normal [facility] Comment on above: Performed By: #### G MARCELLA CARRANZA, TROPHS, BMP, CBC, ANEU, ADIFF #### [place] [address] Platelet Estimate Normal [facility] [place] [facility] Comment on above: Performed By: #### MARCELLA FULLER, TROPHS, BMP, CBC, ANEU, ADIFF #### [place] [id number] Stomatocytes 1+ Normal [facility] Comment on above: Performed By: #### MARCELLA FULLER, TROPHS, BMP, CBC, ANEU, ADIFF #### [place] [id number] Toxic Gran 1+ Normal [facility] Comment on above: Performed By: #### MARCELLA FULLER, TROPHS, BMP, CBC, ANEU, ADIFF #### [address] [address] .NEUABSon 11-08-2024 Neutrophil, Absolute 10.7 10 3/mcL High 2.3-8.1 [facility] Comment on above: Performed By: #### C MP, LIP, ANEU, MDW, PBNP, CBC, TROPHS, GFR, ADIFF #### [address] [address] Neutrophil, Absolute 12.5 10 3/mcL High 2.3-8.1 [facility] Comment on above: Performed By: #### G FR, W, TROPHS, BMP, CBC, ANEU, ADIFF #### [facility] [address] [place], [place] [address] BGon 11-08-2024 Base excess Calc (Bld) [Moles/Vol] 1.5 mmol/L Normal [facility] Comment on above: Performed By: #### C MP, LIP, ANEU, MDW, PBNP, CBC, TROPHS, GFR, ADIFF #### [address] [address] CO2 [Moles/Vol] 28.5 mmol/L Normal 22.0-30.0 [facility] Comment on above: Performed By: #### C MP, LIP, ANEU, MDW, PBNP, CBC, TROPHS, GFR, ADIFF #### [address] [address] HCO3 (Bld) [Moles/Vol] 27.1 mmol/L Normal 21.0-29.0 [facility] Comment on above: Performed By: #### C MP, LIP, ANEU, MDW, PBNP, CBC, TROPHS, GFR, ADIFF #### [address] [address] Oxygen (Bld) [Partial pressure] 71.7 mm[Hg] Low 74.0-108.0 [facility] Comment on above: Performed By: #### C MP, LIP, ANEU, MDW, PBNP, CBC, TROPHS, GFR, ADIFF #### [address] [address] Oxygen saturation in Blood 93.4 % Normal 92.0-96.0 [facility] Comment on above: Performed By: #### C MP, LIP, ANEU, MDW, PBNP, CBC, TROPHS, GFR, ADIFF #### [place] [id number] pCO2 46.8 mmHg High 32.0-46.0 [facility] Comment on above: Performed By: #### C MP, LIP, ANEU, MDW, PBNP, CBC, TROPHS, GFR, ADIFF #### [place] [id number] pH (Bld) 7.380 [pH] Normal 7.380-7.460 [facility] Comment on above: Performed By: #### C MP, LIP, ANEU, MDW, PBNP, CBC, TROPHS, GFR, ADIFF #### [place] [id number] CBCon 11-08-2024 Erythrocyte distribution width (RBC) [Ratio] 18.1 % High 11.5-15.5 [facility] Comment on above: Performed By: #### C MP, LIP, ANEU, MDW, PBNP, CBC, TROPHS, GFR, ADIFF #### [place] [id number] Hematocrit (Bld) [Volume fraction] 32.3 % Low 34.0-46.0 [facility] Comment on above: Performed By: #### C MP, LIP, ANEU, MDW, PBNP, CBC, TROPHS, GFR, ADIFF #### [place] [id number] Hgb 10.7 G/dL Low 12.0-16.0 [facility] Comment on above: Performed By: #### C MP, LIP, ANEU, MDW, PBNP, CBC, TROPHS, GFR, ADIFF #### [place] [id number] MCH (RBC) [Entitic mass] 31.8 pg Normal 27.0-33.0 [facility] Comment on above: Performed By: #### C MP, LIP, ANEU, MDW, PBNP, CBC, TROPHS, GFR, ADIFF #### [address] [address] MCHC 33.0 G/dL Normal 32.0-36.0 [facility] Comment on above: Performed By: #### C MP, LIP, ANEU, MDW, PBNP, CBC, TROPHS, GFR, ADIFF #### [place] [address] MCV (RBC) [Entitic vol] 96.4 fL Normal 80.0-99.0 [facility] Comment on above: Performed By: #### C MP, LIP, ANEU, MDW, PBNP, CBC, TROPHS, GFR, ADIFF #### [place] [address] Platelet 178 10 3/mcL Normal 150-450 [facility] Comment on above: Performed By: #### C MP, LIP, ANEU, MDW, PBNP, CBC, TROPHS, GFR, ADIFF #### [place] [address] Platelet mean volume (Bld) [Entitic vol] 10.7 fL High 6.6-10.5 [facility] Comment on above: Performed By: #### C MP, LIP, ANEU, MDW, PBNP, CBC, TROPHS, GFR, ADIFF #### [place] [address] RBC 3.35 10 6/mcL Low 4.10-5.30 [facility] Comment on above: Performed By: #### C MP, LIP, ANEU, MDW, PBNP, CBC, TROPHS, GFR, ADIFF #### [place] [id number] WBC 12.4 10 3/mcL High 4.5-10.8 [facility] Comment on above: Performed By: #### C MP, LIP, ANEU, MDW, PBNP, CBC, TROPHS, GFR, ADIFF #### [place] [address] Platelet 174 10 3/mcL Normal 150-450 [facility] Comment on above: Performed By: #### G FR, W, TROPHS, BMP, CBC, ANEU, ADIFF #### [address] [address] Platelet mean volume (Bld) [Entitic vol] 10.4 fL Normal 6.6-10.5 [facility] Comment on above: Performed By: #### G MARCELLA CARRANZA, TROPHS, BMP, CBC, ANEU, ADIFF #### [address] [address] Erythrocyte distribution width (RBC) [Ratio] 18.0 % High 11.5-15.5 [facility] Comment on above: Performed By: #### G MARCELLA CARRANZA, ALEXS, BMP, CBC, ANEU, ADIFF #### [place] [address] Hematocrit (Bld) [Volume fraction] 32.1 % Low 34.0-46.0 [facility] Comment on above: Performed By: #### G MARCELLA CARRANZA TROPHS, BMP, CBC, ANEU, ADIFF #### [place] [address] Hgb 10.7 G/dL Low 12.0-16.0 [facility] Comment on above: Performed By: #### MARCELLA FULLER TROPHS, BMP, CBC, ANEU, ADIFF #### [address] [address] MCH (RBC) [Entitic mass] 31.8 pg Normal 27.0-33.0 [facility] Comment on above: Performed By: #### MARCELLA FULLER, ALEXS, BMP, CBC, ANEU, ADIFF #### [address] [address] MCHC 33.2 G/dL Normal 32.0-36.0 [facility] Comment on above: Performed By: #### MARCELLA FULLER, TROPHS, BMP, CBC, ANEU, ADIFF #### [address] [address] MCV (RBC) [Entitic vol] 95.7 fL Normal 80.0-99.0 [facility] Comment on above: Performed By: #### G , MARCELLA, TROPHS, BMP, CBC, ANEU, ADIFF #### [address] [address] RBC 3.36 10 6/mcL Low 4.10-5.30 [facility] Comment on above: Performed By: #### G FR, W, TROPHS, BMP, CBC, ANEU, ADIFF #### [address] [address] WBC 14.2 10 3/mcL High 4.5-10.8 [facility] Comment on above: Performed By: #### G , MARCELLA, TROPHS, BMP, CBC, ANEU, ADIFF #### [address] [address] [facility] CK [Catalytic activity/Vol] 54 U/L Normal 7-185 [facility] Comment on above: Performed By: #### C MP, LIP, ANEU, MDW, PBNP, CBC, TROPHS, GFR, ADIFF #### [address] [address] CMPon 11-08-2024 Albumin Level 3.5 G/dL Normal 3.2-4.8 [facility] Comment on above: Performed By: #### C MP, LIP, ANEU, MDW, PBNP, CBC, TROPHS, GFR, ADIFF #### [address] [address] Albumin/Globulin [Mass ratio] 1.0 {ratio} Normal 0.9-1.6 [facility] Comment on above: Performed By: #### C MP, LIP, ANEU, MDW, PBNP, CBC, TROPHS, GFR, ADIFF #### [address] [address] ALP [Catalytic activity/Vol] 82 U/L Normal 38-126 [facility] Comment on above: Performed By: #### C MP, LIP, ANEU, MDW, PBNP, CBC, TROPHS, GFR, ADIFF #### [address] [address] ALT [Catalytic activity/Vol] 18 U/L Normal 10-49 [facility] Comment on above: Performed By: #### C MP, LIP, ANEU, MDW, PBNP, CBC, TROPHS, GFR, ADIFF #### [address] [address] AST [Catalytic activity/Vol] 28 U/L Normal 8-34 [facility] Comment on above: Performed By: #### C MP, LIP, ANEU, MDW, PBNP, CBC, TROPHS, GFR, ADIFF #### [address] [address] Bili Total 0.70 mg/dL Normal 0.20-1.20 [facility] Comment on above: Result Comment: Use of this assay is not recommended for patients undergoing treatment with eltrombopag due to the potential for falsely elevated results. Performed By: #### C MP, LIP, ANEU, MDW, PBNP, CBC, TROPHS, GFR, ADIFF #### [place] [id number] BUN/Creatinine Ratio 8.3 ratio Low 10.0-22.0 [facility] Comment on above: Performed By: #### C MP, LIP, ANEU, MDW, PBNP, CBC, TROPHS, GFR, ADIFF #### [address] [address] Calcium [Mass/Vol] 8.5 mg/dL Low 8.7-10.4 [facility] Comment on above: Performed By: #### C MP, LIP, ANEU, MDW, PBNP, CBC, TROPHS, GFR, ADIFF #### [address] [address] Chloride [Moles/Vol] 98 mmol/L Normal 98-110 [facility] Comment on above: Performed By: #### C MP, LIP, ANEU, MDW, PBNP, CBC, TROPHS, GFR, ADIFF #### [address] [address] CO2 [Moles/Vol] 28 mmol/L Normal 22-32 [facility] Comment on above: Performed By: #### C MP, LIP, ANEU, MDW, PBNP, CBC, TROPHS, GFR, ADIFF #### [address] [address] Creatinine [Mass/Vol] 7.59 mg/dL High 0.50-1.20 [place] [facility] Comment on above: Result Comment: Test ing performed on Implanet analyzer using enzymatic creatinine methodology. Performed By: #### C MP, LIP, ANEU, MDW, PBNP, CBC, TROPHS, GFR, ADIFF #### [place] [id number] Electrolyte Balance 13.0 mEq/L Normal 4.0-15.0 [facility] Comment on above: Performed By: #### C MP, LIP, ANEU, MDW, PBNP, CBC, TROPHS, GFR, ADIFF #### [place] [id number] Globulin 3.4 G/dL Normal 2.5-4.2 [facility] Comment on above: Performed By: #### C MP, LIP, ANEU, MDW, PBNP, CBC, TROPHS, GFR, ADIFF #### [place] [id number] Glucose [Mass/Vol] 261 mg/dL High 70-110 [facility] Comment on above: Performed By: #### C MP, LIP, ANEU, MDW, PBNP, CBC, TROPHS, GFR, ADIFF #### [address] [address] Potassium [Moles/Vol] 5.7 mmol/L High 3.5-5.0 [place] [facility] Comment on above: Performed By: #### C MP, LIP, ANEU, MDW, PBNP, CBC, TROPHS, GFR, ADIFF #### [place] [id number] Sodium [Moles/Vol] 139 mmol/L Normal 136-145 [facility] Comment on above: Performed By: #### C MP, LIP, ANEU, MDW, PBNP, CBC, TROPHS, GFR, ADIFF #### [place] [id number] Total Protein 6.9 G/dL Normal 5.7-8.2 [facility] Comment on above: Performed By: #### C PRESTON, CHRISTOPHER, PAULINE, MARCELLA, PBNP, CBC, TROPHS, GFR, ADIFF #### [address] [address] Urea nitrogen [Mass/Vol] 63.0 mg/dL High 8.0-22.0 [facility] Comment on above: Performed By: #### C PRESTON, CHRISTOPHER, PAULINE, W, PBNP, CBC, TROPHS, GFR, ADIFF #### [address] [address] Albumin Level 3.1 G/dL Low 3.5-5.0 [facility] Comment on above: Performed By: #### G MARCELLA CARRANZA, TROPHS, BMP, CBC, ANEU, ADIFF #### [address] [address] Albumin/Globulin [Mass ratio] 0.9 {ratio} Low 1.1-2.5 [facility] Comment on above: Performed By: #### G MARCELLA CARRANZA, ALEXS, BMP, CBC, ANEU, ADIFF #### [address] [address] ALP [Catalytic activity/Vol] 85 U/L Normal 40-135 [facility] Comment on above: Performed By: #### G MARCELLA CARRANZA, ALEXS, BMP, CBC, ANEU, ADIFF #### [address] [address] ALT [Catalytic activity/Vol] 26 U/L Normal 14-59 [facility] Comment on above: Performed By: #### G MARCELLA CARRANZA, TROPHS, BMP, CBC, ANEU, ADIFF #### [address] [address] AST [Catalytic activity/Vol] 20 U/L Normal 10-40 [facility] Comment on above: Performed By: #### MARCELLA FULLER, TROPHS, BMP, CBC, ANEU, ADIFF #### [address] [address] Bili Total 0.8 mg/dL Normal 0.2-1.0 [facility] Comment on above: Result Comment: Use of this assay is not recommended for patients undergoing treatment with eltrombopag due to the potential for falsely elevated results. Performed By: #### G MARCELLA CARRANZA, TROPHS, BMP, CBC, ANEU, ADIFF #### [address] [address] BUN/Creatinine Ratio 9 ratio Normal 7-27 [facility] Comment on above: Performed By: #### G MARCELLA CARRANZA, TROPHS, BMP, CBC, ANEU, ADIFF #### [address] [address] Calcium [Mass/Vol] 8.7 mg/dL Normal 8.4-10.2 [facility] Comment on above: Performed By: #### MARCELLA FULLER, TROPHS, BMP, CBC, ANEU, ADIFF #### [address] [address] Chloride [Moles/Vol] 99 mmol/L Normal 98-107 [facility] Comment on above: Performed By: #### MARCELLA FULLER, TROPHS, BMP, CBC, ANEU, ADIFF #### [address] [address] CO2 [Moles/Vol] 31 mmol/L High 22-29 [facility] Comment on above: Performed By: #### MARCELLA FULLER, TROPHS, BMP, CBC, ANEU, ADIFF #### [address] [address] Creatinine [Mass/Vol] 7.17 mg/dL High 0.51-0.95 [facility] Comment on above: Performed By: #### MARCELLA FULLER, TROPHS, BMP, CBC, ANEU, ADIFF #### [address] [address] Electrolyte Balance 8.0 mEq/L Normal 4.0-15.0 [facility] Comment on above: Performed By: #### MARCELLA FULLER, ALEXS, BMP, CBC, ANEU, ADIFF #### [address] [address] Globulin 3.6 G/dL Normal 2.7-4.4 [facility] Comment on above: Performed By: #### MARCELLA FULLER, ALEXS, BMP, CBC, ANEU, ADIFF #### [address] [address] Glucose [Mass/Vol] 209 mg/dL High 70-105 [facility] Comment on above: Performed By: #### MARCELLA FULLER, NAILA, BMP, CBC, ANEU, ADIFF #### [address] [address] Potassium [Moles/Vol] 5.6 mmol/L High 3.5-5.1 [facility] Comment on above: Performed By: #### MARCELLA FULLER TROPHS, BMP, CBC, ANEU, ADIFF #### [address] [address] Sodium [Moles/Vol] 138 mmol/L Normal 136-145 [facility] Comment on above: Performed By: #### MARCELLA FULLER, NAILA, BMP, CBC, ANEU, ADIFF #### [address] [address] Total Protein 6.7 G/dL Normal 6.4-8.2 [facility] Comment on above: Performed By: #### MARCELLA FULLER, NAILA, BMP, CBC, ANEU, ADIFF #### [address] [address] Urea nitrogen [Mass/Vol] 62 mg/dL High 7-18 [facility] Comment on above: Performed By: #### MARCELLA FULLER, TROPHS, BMP, CBC, ANEU, ADIFF #### [address] [address] [address] HEAD OR BRAIN W/O CONTRAS Puma 11-08-2024 CT HEAD OR BRAIN W/O CONTRAST ORIGINAL EXAMINATION: CT OF THE HEAD WITHOUT CONTRAST 11/08/2024 10:57 pm TECHNIQUE: CT of the head was performed without the administration of intravenous contrast. Automated exposure control, iterative reconstruction, and/or weight based adjustment of the mA/kV was utilized to reduce the radiation dose to as low as reasonably achievable. COMPARISON: CT head July 08, 2022 HISTORY: ORDERING SYSTEM PROVIDED HISTORY: Reason for Exam: AMS, HX OF STROKE, PT POOR HISTORIAN Delirium FINDINGS: BRAIN/VENTRICLES: There is no acute intracranial hemorrhage, mass effect or midline shift. No abnormal extra-axial fluid collection. Redemonstrated left-sided encephalomalacia. There is no evidence of hydrocephalus. There are nonspecific hypoattenuating foci in the subcortical and periventricular white matter that most likely represent chronic microangiopathic ischemic changes in a patient of this age. ORBITS: The visualized portion of the orbits demonstrate no acute abnormality. SINUSES: The visualized paranasal sinuses and mastoid air cells demonstrate no acute abnormality. SOFT TISSUES/SKULL: No acute abnormality of the visualized skull. IMPRESSION: No acute intracranial abnormality. Interpreted by: Nawaf Chou Preliminary Report By: Nawaf Chou Electronically signed By Nawaf Chou Dictated Date: 11/08/2024 11:26:04 PM Prelim Date: 11/08/2024 11:29:37 PM Sign Date: 11/08/2024 11:29:37 PM Ordering Provider: RADHA Self [facility] CVFLURVon 11-08-2024 FLU A PCR Negative Normal Negative [facility] Comment on above: Performed By: #### G MARCELLA CARRANZA, NAILA, BMP, CBC, ANEU, ADIFF #### [place] [address] FLU B PCR Negative Normal Negative [facility] Comment on above: Performed By: #### G MARCELLA CARRANZA, NAILA, BMP, CBC, ANEU, ADIFF #### [place] [address] RSV PCR Negative Normal Negative [facility] Comment on above: Performed By: #### G MARCELLA CARRANZA, NAILA, BMP, CBC, ANEU, ADIFF #### [place] [id number] SARS-CoV-2 (COVID-19) RNA YANI+probe Ql (Unsp spec) Negative Normal Negative [facility] Comment on above: Result Comment: [...] cause inaccurate positive results. Performed By: #### G FR, MDW, TROPHS, BMP, CBC, ANEU, ADIFF #### [address] [address] LABORATORYOrdered By: Vasile Mohamud on 11-08-2024 MRSA (PCR) Detected 1 *ABN* (11/08/24 11:09 PM) Invalid Interpretation Code Not Detected [facility] Comment on above: Result Comment: Note s [id number] MRSA PCR Int See Below 2 *NA* (11/08/24 11:09 PM) Invalid Interpretation Code [facility] Comment on above: Result Comment: Clinical Interpretation: Staph aureus DNA detected by Real-Time Polymerase Chain Reaction (PCR). Organism viability can not be determined since free bacterial DNA may persist in the absence of viable organisms. As with all PCR based in vitro diagnostic tests, extremely low levels of target below the limit of detection of the assay may be detected, but results may not be reproducible, and the clinical significance unknown. Infection control will be notified. M. pneumoniae IgM IA Ql (S) Negative 17 (11/08/24 9:19 PM) Normal [facility] Comment on above: Interpretive Data: I NTERPRETATION OF MYCOPLASMA IgM: Negative: IgM to M. pneumoniae Absent, or at levels below the assay limit of detection. Positive: IgM to M. pneumoniae Present. Invalid: Test results are invalid due to invalid internal control. Assay was performed in duplicate. Repeat testing is suggested if clinically indicated. LABORATORYOrdered By: SYSTEM SYSTEM on 11-08-2024 CK [Catalytic activity/Vol] 54 U/L Normal 7 - 185 U/L AH ADM SS Magnesium [Mass/Vol] 2.2 mg/dL Normal 1.6 - 2 .4 mg/dL AH ADM SS Phosphate [Mass/Vol] 6.7 mg/dL High 2.4 - 5 .1 mg/dL AH ADM SS Albumin/Globulin [Mass ratio] 1.0 {ratio} Normal 0.9 - 1.6 ratio AH ADM SS ALP [Catalytic activity/Vol] 82 U/L Normal 38 - 126 U/L ADM SS ALT No additional P-5'-P [Catalytic activity/Vol] 18 U/L Normal 10 - 49 U/L ADM SS AST [Catalytic activity/Vol] 28 U/L Normal 8 - 34 U/L ADM SS Bilirubin [Mass/Vol] 0.70 mg/dL Normal 0.20 - 1.20 mg/dL ADM SS Comment on above: Interpretive Data: U se of this assay is not recommended for patients undergoing treatment with eltrombopag due to the potential for falsely elevated results. Globulin 3.4 G/dL Normal 2.5 - 4.2 G/dL ADM SS Lactate [Moles/Vol] 1.8 mmol/L Normal 0.5 - 2. 2 mmol/L ADM SS Lipase [Catalytic activity/Vol] 27 U/L Normal 12 - 53 U/L ADM SS Monocyte distribution width Auto (Bld) [Entitic vol] 21.30 1 High 0.00 - 20.00 Workflow SS Comment on above: Result Comment: For adults in ED, MDW>20.0 may be associated with a higher risk of sepsis during the first 12hrs of hospital admission Natriuretic peptide.B prohormone N-Terminal IA [Mass/Vol] 28741 pg/mL High 0 - 900 pg/mL ADM SS Protein [Mass/Vol] 6.9 G/dL Normal 5.7 - 8.2 G/dL ADM SS Troponin I.cardiac DL <= 0.01 ng/mL [Mass/Vol] 42 ng/L Normal 0 - 51 ng/L AO ADM SS Comment on above: Interpretive Data: H igh Sensitive Troponin I Reference Ranges: Female: 0-51 ng/L Male: 0-76 ng/L Testing performed on [employer] using a homogeneous sandwich chemiluminescent immunoassay based on [employer] technology. Albumin BCP dye [Mass/Vol] 3.1 G/dL Low 3.5 - 5.0 G/dL AO ADM SS Albumin/Globulin [Mass ratio] 0.9 {ratio} Low 1.1 - 2.5 ratio AO ADM SS ALP [Catalytic activity/Vol] 85 U/L Normal 40 - 135 U/L AO ADM SS ALT With P-5'-P [Catalytic activity/Vol] 26 U/L Normal 14 - 59 U/L AO ADM SS Anisocytosis Ql (Bld) 1+ *NA* (11/08/24 6:07 AM) Invalid Interpretation Code AO Workflow SS AST With P-5'-P [Catalytic activity/Vol] 20 U/L Normal 10 - 40 U/L AO ADM SS Basophils (Bld) [#/Vol] 0.1 103/mcL Normal 0.0 - 0.3 10^3/mcL AO Workflow SS Basophils/100 WBC (Bld) 0.6 % Normal 0.0 - 2.5 % AO Workflow SS Bilirubin [Mass/Vol] 0.8 mg/dL Normal 0.2 - 1 .0 mg/dL AO ADM SS Comment on above: Interpretive Data: U se of this assay is not recommended for patients undergoing treatment with eltrombopag due to the potential for falsely elevated results. Calcium [Mass/Vol] 8.7 mg/dL Normal 8.4 - 10. 2 mg/dL AO ADM SS Chloride [Moles/Vol] 99 mmol/L Normal 98 - 10 7 mmol/L AO ADM SS CO2 [Moles/Vol] 31 mmol/L High 22 - 29 mmol/L AO ADM SS Creatinine [Mass/Vol] 7.17 mg/dL High 0.51 - 0.95 mg/dL AO ADM SS Electrolyte Balance 8.0 mEq/L Normal 4.0 - 15 .0 mEq/L AO ADM SS Eosinophil, Absolute 0.1 103/mcL Normal 0.0 - 0 .7 10^3/mcL AO Workflow SS Eosinophils/100 WBC (Bld) 0.8 % Normal 0.0 - 6.0 % AO Workflow SS Erythrocyte distribution width (RBC) [Ratio] 18.0 % High 11.5 - 15.5 % AO Workflow SS Estimated Glomerular Filtration Rate 6 ml/min/1.73sqm Invalid Interpretation Code AO Chemistry S [...] factor to calculate the eGFR results. Globulin 3.6 G/dL Normal 2.7 - 4.4 G/dL AO ADM SS Glucose [Mass/Vol] 209 mg/dL High 70 - 105 mg/dL AO ADM SS Hematocrit (Bld) [Volume fraction] 32.1 % Low 34.0 - 46.0 % AO Workflow SS Hemoglobin (Bld) [Mass/Vol] 10.7 G/dL Low 12.0 - 16.0 G/dL AO Workflow SS Hypochromia Ql (Bld) 1+ *NA* (11/08/24 6:07 AM) Invalid Interpretation Code AO Workflow SS Large Platelets Few *NA* (11/08/24 6:07 AM) Invalid Interpretation Code AO Workflow SS Lipase [Catalytic activity/Vol] 31 U/L Normal 16 - 77 U/L AO ADM SS Lymphocytes (Bld) [#/Vol] 0.4 103/mcL Low 0.9 - 4.3 10^3/mcL AO Workflow SS Lymphocytes/100 WBC (Bld) 3.1 % Low 20.0 - 40.0 % AO Workflow SS MCH (RBC) [Entitic mass] 31.8 pg Normal 27.0 - 33.0 pg AO Workflow SS MCHC 33.2 G/dL Normal 32.0 - 36.0 G/dL AO Workflow SS MCV (RBC) [Entitic vol] 95.7 fL Normal 80.0 - 99.0 fL AO Workflow SS Monocyte distribution width Auto (Bld) [Entitic vol] 20.56 1 High 0.00 - 20.00 AO Workflow SS Comment on above: Result Comment: For adults in ED, MDW>20.0 may be associated with a higher risk of sepsis during the first 12hrs of hospital admission Monocytes (Bld) [#/Vol] 1.0 103/mcL Normal 0.1 - 1.4 10^3/mcL AO Workflow SS Monocytes/100 WBC (Bld) 7.3 % Normal 2.0 - 13.0 % AO Workflow SS Neutrophils (Bld) [#/Vol] 12.5 103/mcL High 2.3 - 8.1 10^3/mcL AO Workflow SS Neutrophils/100 WBC (Bld) 88.2 % High 50.0 - 75.0 % AO Workflow SS Platelet mean volume (Bld) [Entitic vol] 10.4 fL Normal 6.6 - 10.5 fL AO Workflow SS Platelets (Bld) [#/Vol] 174 103/mcL Normal 150 - 450 10^3/mcL AO Workflow SS Platelets LM Ql (Bld) Normal *NA* (11/08/24 6:07 AM) Invalid Interpretation Code AO Workflow SS Potassium [Moles/Vol] 5.6 mmol/L High 3.5 - 5.1 mmol/L AO ADM SS Protein [Mass/Vol] 6.7 G/dL Normal 6.4 - 8.2 G/dL AO ADM SS RBC (Bld) [#/Vol] 3.36 106/mcL Low 4.10 - 5.3 0 10^6/mcL AO Workflow SS Sodium [Moles/Vol] 138 mmol/L Normal 136 - 145 mmol/L AO ADM SS Stomatocytes LM Ql (Bld) 1+ *NA* (11/08/24 6:07 AM) Invalid Interpretation Code AO Workflow SS Toxic granules LM Ql (Bld) 1+ *NA* (11/08/24 6:07 AM) Invalid Interpretation Code AO Workflow SS Troponin I.cardiac DL <= 0.01 ng/mL [Mass/Vol] 42 ng/L Normal 0 - 51 ng/L AO ADM SS Comment on above: Interpretive Data: H igh Sensitive Troponin I Reference Ranges: Female: 0-51 ng/L Male: 0-76 ng/L Testing performed on [employer] using a homogeneous sandwich chemiluminescent immunoassay based on [employer]. Urea nitrogen [Mass/Vol] 62 mg/dL High 7 - 18 mg/dL AO ADM SS Urea nitrogen/Creatinine [Mass ratio] 9 ratio Normal 7 - 27 ratio AO ADM SS WBC (Bld) [#/Vol] 14.2 103/mcL High 4.5 - 10.8 10^3/mcL AO Workflow SS LABORATORYOrdered By: Robbie Hidalgo on 11-08-2024 M. pneumoniae IgG IA Ql (S) Positive 18 *NA* (11/08/24 9:19 PM) Invalid Interpretation Code AH Auto Viro/Sero SS Comment on above: Interpretive Data: I NTERPRETATION OF MYCOPLASMA IgG BY EIA: Negative: No detectable M. pneumoniae IgG antibody. Positive: Mycoplasma pneumoniae IgG antibody Detected. Equivocal: Equivocal for IgG antibodies to Mycoplasma pneumoniae. Suggest repeat testing in 10-14 days. LABORATORYOrdered By: Salima Greene on 11-08-2024 CO2 [Moles/Vol] 28.5 mmol/L Normal 22.0 - 30.0 mmol/L AH Main Rapid Comm SS HCO3 (Bld) [Moles/Vol] 27.1 mmol/L Normal 21.0 - 29.0 mmol/L AH Main Rapid Comm SS Oxygen (Bld) [Partial pressure] 71.7 mm[Hg] Low 74.0 - 108.0 mm Hg AH Main Rapid Comm SS pCO2 46.8 mm[Hg] High 32.0 - 46.0 mm Hg AH Main Rapid Comm SS pH (Bld) 7.380 [pH] Normal 7.380 - 7.460 AH Main Rapid Comm SS Sodium [Moles/Vol] 1.5 mmol/L Invalid Interpretation Code AH Main Rapid Comm SS LABORATORYOrdered By: Deloris Martinez on 11-08-2024 FLUAV RNA YANI+probe Ql (Resp) Negative (11/08/24 5:44 AM) Normal Negative AO Auto Urine SS FLUBV RNA YANI+probe Ql (Resp) Negative (11/08/24 5:44 AM) Normal Negative AO Auto Urine SS RSV RNA YANI+probe Ql (Resp) Negative (11/08/24 5:44 AM) Normal Negative AO Auto Urine SS SARS-CoV-2 (COVID-19) RNA YANI+probe Ql (Resp) Negative 6 (11/08/24 5:44 AM) Normal Negative AO Auto Urine SS [...] influenza vaccines may cause inaccurate positive results. LACon 11-08-2024 Lactic Acid Lvl 1.8 mmol/L Normal 0.5-2.2 [facility] Comment on above: Performed By: #### C MP, LIP, PAULINE, MDW, PBNP, CBC, TROPHS, GFR, ADIFF #### [address] [address] LIPon 11-08-2024 Lipase Level 27 U/L Normal 12-53 [facility] Comment on above: Performed By: #### C MP, LIP, PAULINE, MDW, PBNP, CBC, TROPHS, GFR, ADIFF #### [address] [address] Lipase Level 31 U/L Normal 16-77 [facility] Comment on above: Performed By: #### G FR, MDW, TROPHS, BMP, CBC, ANEU, ADIFF #### [facility] [address] [place], [place] [address] MGon 11-08-2024 Magnesium [Mass/Vol] 2.2 mg/dL Normal 1.6-2.4 [facility] Comment on above: Performed By: #### C MP, LIP, ANEU, MDW, PBNP, CBC, TROPHS, GFR, ADIFF #### [place] [id number] No Panel Informationon 11-08 Microscopic examination of blood, culture Culture has been received in lab and is no growth to date. Routine cultures are held for 5 days. [facility] Work Phone: PBNPon 11-08-2024 Natriuretic peptide B (Bld) [Mass/Vol] 28332 pg/mL High 0-900 [facility] Comment on above: Performed By: #### C MP, LIP, ANEU, MDW, PBNP, CBC, TROPHS, GFR, ADIFF #### [address] 11-08-2024 Phosphate [Mass/Vol] 6.7 mg/dL High 2.4-5.1 [facility] Comment on above: Performed By: #### C MP, LIP, ANEU, MDW, PBNP, CBC, TROPHS, GFR, ADIFF #### [address] 11-08-2024 High Sensitivity Troponin I 314 ng/L High 0-34 [facility] Comment on above: Result Comment: High Sensitive Troponin I Reference Ranges: Female: 0-34 ng/L Male: 0-54 ng/L Testing performed on [employer] IM analyzer using direct chemiluminescent technology. Performed By: #### C MP, LIP, ANEU, MDW, PBNP, CBC, TROPHS, GFR, ADIFF #### [place] [address] High Sensitivity Troponin I 169 ng/L [address] [facility] Comment on above: Result Comment: High Sensitive Troponin I Reference Ranges: Female: 0-34 ng/L Male: 0-54 ng/L Testing performed on [employer] IM analyzer using direct chemiluminescent technology. Performed By: #### C MP, LIP, ANEU, MDW, PBNP, CBC, TROPHS, GFR, ADIFF #### [place] [address] High Sensitivity Troponin I 46 ng/L [address] MAIN Comment on above: Result Comment: High Sensitive Troponin I Reference Ranges: Female: 0-34 ng/L Male: 0-54 ng/L Testing performed on [employer] IM analyzer using direct chemiluminescent technology. Performed By: #### C MP, LIP, ANEU, MDW, PBNP, CBC, TROPHS, GFR, ADIFF #### [facility] [address] [place] [address] High Sensitivity Troponin I 42 ng/L Normal 0-51 [facility] Comment on above: Result Comment: High Sensitive Troponin I Reference Ranges: Female: 0-51 ng/L Male: 0-76 ng/L Testing performed on [employer] using a homogeneous sandwich chemiluminescent immunoassay based on [employer] technology. Performed By: #### T [facility] #### [address] [address] High Sensitivity Troponin I 42 ng/L Normal 0-51 [facility] Comment on above: Result Comment: High Sensitive Troponin I Reference Ranges: Female: 0-51 ng/L Male: 0-76 ng/L Testing performed on [employer] using a homogeneous sandwich chemiluminescent immunoassay based on [employer] technology. Performed By: #### G FR, MDW, TROPHS, BMP, CBC, ANEU, ADIFF #### [place] [id number] [place], [place] [address] XR CHEST 1 VIEWon 11-08-2024 XR CHEST 1 VIEW ORIGINAL EXAMINATION: ONE XRAY VIEW OF THE CHEST 11/08/2024 5:38 pm COMPARISON: 11/08/2024 at 6:22 a.m. HISTORY: ORDERING SYSTEM PROVIDED HISTORY: Reason for Exam: shortness of breath, cough, vomiting FINDINGS: The cardiomediastinal silhouette appears unchanged. Airspace opacities more pronounced in the right lateral lung elsewhere. Small effusions not excluded. There is no evidence of pneumothorax. No fracture is identified. IMPRESSION: Airspace opacities most pronounced in the right lateral lung. Asymmetric appearance favors pneumonia and/or aspiration over edema. Small effusions not excluded. Interpreted by: Tony Manuel Preliminary Report By: Tony Manuel Electronically signed By Tony Manuel Dictated Date: 11/08/2024 5:57:58 PM Prelim Date: 11/08/2024 6:01:23 PM Sign Date: 11/08/2024 6:01:23 PM Ordering Provider: DORIAN JAUREGUI [facility] MAIN XR CHEST 2 VIEWSon XR CHEST 2 VIEWS ORIGINAL EXAMINATION: TWO XRAY VIEWS OF THE CHEST 11/08/2024 6:45 am COMPARISON: None. HISTORY: ORDERING SYSTEM PROVIDED HISTORY: Reason for Exam: SOB/Cough/Fever FINDINGS: Moderate cardiomegaly. Atherosclerotic calcification of the aorta is noted. Interstitial and alveolar haziness throughout the lungs bilaterally greater on the right. Suspected small right effusion. IMPRESSION: Findings suggestive of congestion/edema versus developing infectious or inflammatory process. Worsened airspace disease on the right with possible small right effusion. Interpreted by: Diamond Dela Cruz MD Preliminary Report By: Diamond Dela Cruz MD Electronically signed By Diamond Dela Cruz MD Dictated Date: 11/08/2024 6:50:52 AM Prelim Date: 11/08/2024 6:51:33 AM Sign Date: 11/08/2024 6:51:33 AM Ordering Provider: SRIDEVI KELLEY [facility] [place] [facility] LABORATORYOrdered By: Jessica Peterson on 10-26-2024 Albumin DL <= 20 mg/L (U) [Mass/Vol] mg/L Invalid Interpretation Code AO ADM SS Albumin/Creatinine DL <= 20 mg/L (U) [Mass ratio] Unable to Calculate Invalid Interpretation Code 0 - 30 AO Chemistry S Comment on above: Result Comment: Unab le to calculate this test result accurately. Results used to calculate this test are outside the reportable range. Creatinine (U) [Mass/Vol] 222.9 mg/dL Invalid Interpretation Code AO ADM SS SARAPat 10-26-2024 U Creatinine 222.9 mg/dL [facility] [place] [facility] Comment on above: Performed By: #### M ALBR #### [address] [address] U Microalb >850.0 [facility] [place] [facility] Comment on above: Performed By: #### M ALBR #### [place] [id number] [place], [place] [address] U Ratio Alb/Cre Unable to Calculate Normal 0-30 [facility] Comment on above: Result Comment: Unab le to calculate this test result accurately. Results used to calculate this test are outside the reportable range. Performed By: #### M ALBR #### [address] [address] Absolute lymphocyte countOrd ered By: Cipriano Baldwin on 10-11-2024 Lymphocytes Auto (Unsp spec) [#/Vol] 0.42 10*3/uL Low 0.83-4.51 [facility] Absolute neutrophil countOrd ered By: Cipriano Baldwin on 10-11-2024 Neutrophils (Bld) [#/Vol] 9.8 10*3/uL High 2.0-7.7 [facility] Anion gap in Serum or Plasma Ordered By: Cipriano Baldwin on 10-11-2024 Anion gap [Moles/Vol] 17 mmol/L High 5-15 [facility] Automated lymphocyte count a s percentage of total leukocytesOrdered By: Cipriano Bladwin on 10-11-2024 Lymphocytes/100 WBC Auto (Unsp spec) 3.6 % Low 19-41 [facility] BUN/creatinine ratioOrdered By: Cipriano Baldwin on 10-11-2024 Urea nitrogen/Creatinine [Mass ratio] 8.1 mg/mg Low 10-20 [facility] Basic Metabolic Profile (BMP )on 10-11-2024 BUN/CRE 8.1 RATIO Low 10-20 [facility] Comment on above: Performed By: #### L 100.0100, L500.2500 ####[facility] [address] [facility] [place], [address] Calcium [Mass/Vol] 8.6 mg/dL Normal 7.6-11.0 [facility] Comment on above: Performed By: #### L 100.0100, L500.2500 ####[facility] [address] [place], [address] Chloride [Moles/Vol] 93 mmol/L Low 98-108 [facility] Comment on above: Performed By: #### L 100.0100, L500.2500 ####[facility] [address] [place], [address] CO2 [Moles/Vol] 22.8 mmol/L Normal 21.0-32.0 [facility] Comment on above: Performed By: #### L 100.0100, L500.2500 ####[facility] [address] [place], [address] Creatinine [Mass/Vol] 7.37 mg/dL High 0.70-1.20 [facility] Comment on above: Performed By: #### L 100.0100, L500.2500 ####[facility] [address] [place], [address] ECRCL 9.54 ml/min Invalid Interpretation Code 50-250 [facility] Comment on above: Performed By: #### L 100.0100, L500.2500 ####[facility] [address] [place], [address] GAP 17 High 5-15 [facility] Comment on above: Performed By: #### L 100.0100, L500.2500 ####[facility] [address] [place], [address] GFR/1.73 sq M.predicted among non-blacks MDRD (S/P/Bld) [Vol rate/Area] 6 mL/min/{1.73_m2} Low >60 [facility] Comment on above: Result Comment: mL/m in/1.73m2 CKD-EPI Creatinine Equation (2020) Performed By: #### L 100.0100, L500.2500 ####[facility] [address] [place], [address] Glucose [Mass/Vol] 117 mg/dL High 70-99 [facility] Comment on above: Performed By: #### L 100.0100, L500.2500 ####[facility] [address] [place], [address] Potassium [Moles/Vol] 5.5 mmol/L High 3.3-5.1 [facility] Comment on above: Result Comment: Hemo lysis present, Results??could be affected.?? Performed By: #### L 100.0100, L500.2500 ####[facility] [address] [place], [address] Sodium [Moles/Vol] 133 mmol/L Normal 133-145 [facility] Comment on above: Performed By: #### L 100.0100, L500.2500 ####[facility] [address] [place], [address] Urea nitrogen [Mass/Vol] 60 mg/dL High 4-19 [facility] Comment on above: Performed By: #### L 100.0100, L500.2500 ####[facility] [address] [place], [address] Basophil percentageOrdered B y: Cipriano Baldwin on 10-11-2024 Basophils/100 WBC (Bld) 0.3 % 0-1 [facility] Bedside Glucoseon 10-11-2024 FINGERSTICK GLU 181 mg/dL High 74-106 [facility] Comment on above: Result Comment: GALA GEMENT OF PATIENT CARE PER NURSING PROTOCOL Performed By: #### L 501.080 ####[facility] [address] [place], [address] FINGERSTICK GLU 106 mg/dL Normal 74-106 [facility] Comment on above: Result Comment: GALA GEMENT OF PATIENT CARE PER NURSING PROTOCOL Performed By: #### L 501.080 ####[facility] [address] [place], [address] FINGERSTICK GLU 122 mg/dL High 74-106 [facility] Comment on above: Result Comment: GALA GEMENT OF PATIENT CARE PER NURSING PROTOCOL Performed By: #### L 501.080 ####[facility] [address] [place], [address] CBC W/Diff, Automatedon 07- Absolute Lymph 0.42 X10 3/uL Low 0.83-4.51 [facility] Comment on above: Performed By: #### L 100.0100, L500.2500 ####[facility] [address] [place], [address] Absolute Neut 9.8 X10 3/uL High 2.0-7.7 [facility] Comment on above: Performed By: #### L 100.0100, L500.2500 ####[facility] [address] [place], [address] Basophils/100 WBC (Bld) 0.3 % Normal 0-1 [facility] Comment on above: Performed By: #### L 100.0100, L500.2500 ####[facility] [address] [place], [address] Eosinophils/100 WBC (Bld) 3.6 % Normal 0-5 [facility] Comment on above: Performed By: #### L 100.0100, L500.2500 ####[facility] [address] [place], [address] Erythrocyte distribution width (RBC) [Ratio] 16.5 % High 11.6-14.6 [facility] Comment on above: Performed By: #### L 100.0100, L500.2500 ####[facility] [address] [place], [address] Hematocrit (Bld) [Volume fraction] 32.3 % Low 37-47 [facility] Comment on above: Performed By: #### L 100.0100, L500.2500 ####[facility] [address] [place], [address] Hemoglobin (Bld) [Mass/Vol] 10.6 g/dL Low 12.0-15.0 [facility] Comment on above: Performed By: #### L 100.0100, L500.2500 ####[facility] [address] [place], [address] IG% 0.500 Normal 0.0-0.9 [facility] Comment on above: Result Comment: IG% - Immature Granulocytes (promyelocytes, myelocytes andmetamyelocytes) > 1% indicates that a LEFT SHIFT is Present. Performed By: #### L 100.0100, L500.2500 ####[facility] [address] [place], [address] Lymphocytes/100 WBC (Bld) 3.6 % Low 19-41 [facility] Comment on above: Performed By: #### L 100.0100, L500.2500 ####[facility] [address] [place], [address] MCH (RBC) [Entitic mass] 31.5 pg Normal 27.0-32.0 [facility] Comment on above: Performed By: #### L 100.0100, L500.2500 ####[facility] [address] [place], [address] MCHC (RBC) [Mass/Vol] 32.8 g/dL Normal 32-36 [facility] Comment on above: Performed By: #### L 100.0100, L500.2500 ####[facility] [address] [place], [address] MCV (RBC) [Entitic vol] 96.1 fL Normal 81-99 [facility] Comment on above: Performed By: #### L 100.0100, L500.2500 ####[facility] [address] [place], [address] Monocytes/100 WBC (Bld) 7.1 % Normal 0-10 [facility] Comment on above: Performed By: #### L 100.0100, L500.2500 ####[facility] [address] [place], [address] Neutrophils/100 WBC (Bld) 84.9 % High 47-70 [facility] Comment on above: Performed By: #### L 100.0100, L500.2500 ####[facility] [address] [place], [address] Nucleated RBC (Bld) [#/Vol] 0 10*3/uL Normal 0-5 [facility] Comment on above: Performed By: #### L 100.0100, L500.2500 ####[facility] [address] [place], [address] Platelet mean volume (Bld) [Entitic vol] 12.3 fL High 6.2-12.0 [facility] Comment on above: Performed By: #### L 100.0100, L500.2500 ####[facility] [address] [place], [address] Platelets (Bld) [#/Vol] 153 10*3/uL Normal 150-450 [facility] Comment on above: Performed By: #### L 100.0100, L500.2500 ####[facility] [address] [place], [address] RBC (Bld) [#/Vol] 3.36 10*6/uL Low 4.2-5.4 [facility] Comment on above: Performed By: #### L 100.0100, L500.2500 ####[facility] [address] [place], [address] RDW SD 58.4 fl High 35.1-43.9 [facility] Comment on above: Performed By: #### L 100.0100, L500.2500 ####[facility] [address] [place], [address] WBC (Bld) [#/Vol] 11.6 10*3/uL High 4.4-11.0 [facility] Comment on above: Performed By: #### L 100.0100, L500.2500 ####[facility] [address] [place], [address] Carbon dioxide, total [Moles /volume] in Central venous bloodOrdered By: Cipriano Baldwin on 10-11-2024 CO2 [Moles/Vol] 22.8 mmol/L 21.0-32.0 [facility] Chloride assayOrdered By: Hudson Baldwin on 10-11-2024 Chloride [Moles/Vol] 93 mmol/L Low 98-108 [facility] Consultation - Nephrologyon 10-11-2024 Consultation - Nephrology Normal [facility] Eosinophil percentageOrdered By: Cipriano Baldwin on 10-11-2024 Eosinophils/100 WBC (Bld) 3.6 % 0-5 [facility] Erythrocyte distribution wid th ratioOrdered By: Cipriano Baldwin on 10-11-2024 Erythrocyte distribution width (RBC) [Ratio] 16.5 % High 11.6-14.6 [facility] Erythrocyte distribution wid th standard deviationOrdered By: Cipriano Baldwin on 10-11-2024 Erythrocyte distribution width (RBC) [Ratio] 58.4 fl High 35.1-43.9 [facility] Glomerular filtration rate ( GFR) estimation/1.73 sq m using serum, plasma, or whole bOrdered By: Cipriano Baldwin on 10-11-2024 GFR/1.73 sq M.predicted among non-blacks MDRD (S/P/Bld) [Vol rate/Area] 6 mL/min/{1.73_m2} Low >60 [facility] Comment on above: mL/min/1.73m2 CKD-EP I Creatinine Equation (2020) [facility] deOrdered By: Cipriano Baldwin on 10-11-2024 Glucose [Mass/Vol] 106 mg/dL 74-106 [facility] Comment on above: MANAGEMENT OF PATIEN T CARE PER NURSING PROTOCOL Gram Stainon 10-11-2024 GS Only Recommended for severe cases of pneumonia Acceptable Specimen? Yes (<25 Epithelial cells per/lpf) Gram Stain 1+ Gram negative rods 3+ Gram positive cocci Rare Epithelial cells 2+ White Blood Cells Normal [facility] Comment on above: Performed By: #### M 100.2000, M100.2400 ####[facility] [address] [place], [address] Hematocrit Auto (Bld) [Volum e fraction]Ordered By: Cipriano Baldwin on 10-11-2024 Hematocrit (Bld) [Volume fraction] 32.3 % Low 37-47 [facility] Hemoglobin measurementOrdere d By: Cipriano Baldwin on 10-11-2024 Hemoglobin (Bld) [Mass/Vol] 10.6 g/dL Low 12.0-15.0 [facility] Immature granulocytes/100 WB C Auto (Bld)Ordered By: Cipriano Baldwin on 10-11-2024 Immature granulocytes/100 WBC (Bld) 0.500 % 0.0-0.9 [facility] Comment on above: IG% - Immature Granu locytes (promyelocytes, myelocytes and metamyelocytes) > 1% indicates that a LEFT SHIFT is Present. MCV (mean corpuscular volume ) determinationOrdered By: Cipriano Baldwin on 10-11-2024 MCV (RBC) [Entitic vol] 96.1 fL 81-99 [facility] Mean corpuscular hemoglobin (MCH) determinationOrdered By: Cipriano Baldwin on 10-11-2024 MCH (RBC) [Entitic mass] 31.5 pg 27.0-32.0 [facility] Mean corpuscular hemoglobin concentration (MCHC) determinationOrdered By: Cipriano Baldwin on 10-11-2024 MCHC (RBC) [Mass/Vol] 32.8 g/dL 32-36 [facility] Mean platelet volume determi nationOrdered By: Cipriano Baldwin on 10-11-2024 Platelet mean volume (Bld) [Entitic vol] 12.3 fL High 6.2-12.0 [facility] Monocyte percentageOrdered B y: Cipriano Baldwin on 10-11-2024 Monocytes/100 WBC (Bld) 7.1 % 0-10 [facility] Neutrophil percentageOrdered By: Cipriano Baldwin on 10-11-2024 Neutrophils/100 WBC (Bld) 84.9 % High 47-70 [facility] Nucleated red blood cell per centageOrdered By: Cipriano Baldwin on 10-11-2024 Nucleated RBC/100 WBC (Bld) [Ratio] 0 % 0-5 [facility] Platelet countOrdered By: Hudson Baldwin on 10-11-2024 Platelets (Bld) [#/Vol] 153 10*3/uL 150-450 [facility] Potassium measurement (mass/ volume)Ordered By: Cipriano Baldwin on 10-11-2024 Potassium (Unsp spec) [Mass/Vol] 5.5 mmol/L High 3.3-5.1 [facility] Comment on above: Hemolysis present, R esults could be affected. RBC Auto (Bld) [#/Vol]Ordere d By: Cipriano Baldwin on 10-11-2024 RBC (Bld) [#/Vol] 3.36 10*6/uL Low 4.2-5.4 [facility] Respiratory Cultureon 2024 RESPC Only Recommended for severe cases of pneumonia Mixed normal respiratory khoi. No Streptococcus pneumoniae, beta-hemolytic Streptococcus or Staphylococcus aureus isolated. Normal [facility] Comment on above: Performed By: #### M 100.2000, M100.2400 ####[facility] [address] [place], [address] Serum creatinine measurement (mass/volume)Ordered By: Cipriano Baldwin on 10-11-2024 Creatinine [Mass/Vol] 7.37 mg/dL High 0.70-1.20 [facility] Serum glucose measurement (m ass/volume)Ordered By: Cipriano Baldwin on 10-11-2024 Glucose [Mass/Vol] 117 mg/dL High 70-99 [facility] Serum or plasma calcium brody urement (mass/volume)Ordered By: Cipriano Baldwin on 10-11-2024 Calcium [Mass/Vol] 8.6 mg/dL 7.6-11.0 [facility] Serum or plasma urea nitroge n measurement (mass/volume)Ordered By: Cipriano Baldwin on 10-11-2024 Urea nitrogen [Mass/Vol] 60 mg/dL High 4-19 [facility] Sodium levelOrdered By: Cipriano Baldwin on 10-11-2024 Sodium [Moles/Vol] 133 mmol/L 133-145 [facility] White blood cell (WBC) count Ordered By: Cipriano Baldwin on 10-11-2024 WBC (Bld) [#/Vol] 11.6 10*3/uL High 4.4-11.0 [facility] Basic Metabolic Profile (BMP )on 10-10-2024 BUN/CRE 7.4 RATIO Low 10-20 [facility] Comment on above: Performed By: #### L 500.2500, L100.0100 ####[facility] [address] [place], [address] Calcium [Mass/Vol] 8.2 mg/dL Normal 7.6-11.0 [facility] Comment on above: Performed By: #### L 500.2500, L100.0100 ####[facility] [address] [place], [address] Chloride [Moles/Vol] 97 mmol/L Low 98-108 [facility] Comment on above: Performed By: #### L 500.2500, L100.0100 ####[facility] [address] [place], [address] CO2 [Moles/Vol] 26.0 mmol/L Normal 21.0-32.0 [facility] Comment on above: Performed By: #### L 500.2500, L100.0100 ####[facility] [address] [place], [address] Creatinine [Mass/Vol] 6.13 mg/dL High 0.70-1.20 [facility] Comment on above: Performed By: #### L 500.2500, L100.0100 ####[facility] [address] [place], [address] ECRCL 11.43 ml/min Low 50-250 [facility] Comment on above: Performed By: #### L 500.2500, L100.0100 ####[facility] [address] [place], [address] GAP 13 Normal 5-15 [facility] Comment on above: Performed By: #### L 500.2500, L100.0100 ####[facility] [address] [place], [address] GFR/1.73 sq M.predicted among non-blacks MDRD (S/P/Bld) [Vol rate/Area] 7 mL/min/{1.73_m2} Low >60 [facility] Comment on above: Result Comment: mL/m in/1.73m2 CKD-EPI Creatinine Equation (2020) Performed By: #### L 500.2500, L100.0100 ####[facility] [address] [place], [address] Glucose [Mass/Vol] 137 mg/dL High 70-99 [facility] Comment on above: Performed By: #### L 500.2500, L100.0100 ####[facility] [address] [place], [address] Potassium [Moles/Vol] 4.9 mmol/L Normal 3.3-5.1 [facility] Comment on above: Performed By: #### L 500.2500, L100.0100 ####[facility] [address] [place], [address] Sodium [Moles/Vol] 136 mmol/L Normal 133-145 [facility] Comment on above: Performed By: #### L 500.2500, L100.0100 ####[facility] [address] [place], [address] Urea nitrogen [Mass/Vol] 46 mg/dL High 4-19 [facility] Comment on above: Performed By: #### L 500.2500, L100.0100 ####[facility] [address] [place], [address] Bedside Glucoseon 10-10-2024 FINGERSTICK GLU 140 mg/dL High 74-106 [facility] Comment on above: Result Comment: GALA GEMENT OF PATIENT CARE PER NURSING PROTOCOL Performed By: #### L 501.080 ####[facility] [address] [place], [address] FINGERSTICK GLU 158 mg/dL High 74-106 [facility] Comment on above: Result Comment: GALA GEMENT OF PATIENT CARE PER NURSING PROTOCOL Performed By: #### L 501.080 ####[facility] [address] [place], [address] FINGERSTICK GLU 138 mg/dL High 74-106 [facility] Comment on above: Result Comment: GALA GEMENT OF PATIENT CARE PER NURSING PROTOCOL Performed By: #### L 501.080 ####[facility] [address] [place], [address] FINGERSTICK GLU 99 mg/dL Normal 74-106 [facility] Comment on above: Result Comment: GALA GEMENT OF PATIENT CARE PER NURSING PROTOCOL Performed By: #### L 501.080 ####[facility] [address] [place], [address] Blood polychromasia detectio n by light microscopyOrdered By: Cipriano Baldwin on 10-10-2024 Polychromasia LM Ql (Bld) 1+ [facility] CBC W/Diff, Automatedon 09-27 PLT EST A Normal ADEQ [facility] Comment on above: Performed By: #### L 500.2500, L100.0100 ####[facility] [address] [place], [address] POLYCHROMASIA 1+ Normal [facility] Comment on above: Performed By: #### L 500.2500, L100.0100 ####[facility] [address] [place], [address] Absolute Lymph 0.50 X10 3/uL Low 0.83-4.51 [facility] Comment on above: Performed By: #### L 500.2500, L100.0100 ####[facility] [address] [place], [address] Absolute Neut 7.2 X10 3/uL Normal 2.0-7.7 [facility] Comment on above: Performed By: #### L 500.2500, L100.0100 ####[facility] [address] [place], [address] Basophils/100 WBC (Bld) 0.3 % Normal 0-1 [facility] Comment on above: Performed By: #### L 500.2500, L100.0100 ####[facility] [address] [place], [address] Eosinophils/100 WBC (Bld) 5.8 % High 0-5 [facility] Comment on above: Performed By: #### L 500.2500, L100.0100 ####[facility] [address] [place], [address] IG% 0.400 Normal 0.0-0.9 [facility] Comment on above: Result Comment: IG% - Immature Granulocytes (promyelocytes, myelocytes andmetamyelocytes) > 1% indicates that a LEFT SHIFT is Present. Performed By: #### L 500.2500, L100.0100 ####[facility] [address] [place], [address] Lymphocytes/100 WBC (Bld) 5.3 % Low 19-41 [facility] Comment on above: Performed By: #### L 500.2500, L100.0100 ####[facility] [address] [place], [address] Monocytes/100 WBC (Bld) 11.9 % High 0-10 [facility] Comment on above: Performed By: #### L 500.2500, L100.0100 ####[facility] [address] [place], [address] Neutrophils/100 WBC (Bld) 76.3 % High 47-70 [facility] Comment on above: Performed By: #### L 500.2500, L100.0100 ####[facility] [address] [place], [address] Platelet mean volume (Bld) [Entitic vol] 13.4 fL High 6.2-12.0 [facility] Comment on above: Performed By: #### L 500.2500, L100.0100 ####[facility] [address] [place], [address] Erythrocyte distribution width (RBC) [Ratio] 16.2 % High 11.6-14.6 [facility] Comment on above: Performed By: #### L 500.2500, L100.0100 ####[facility] [address] [place], [address] Hematocrit (Bld) [Volume fraction] 31.4 % Low 37-47 [facility] Comment on above: Performed By: #### L 500.2500, L100.0100 ####[facility] [address] [place], [address] Hemoglobin (Bld) [Mass/Vol] 10.1 g/dL Low 12.0-15.0 [facility] Comment on above: Performed By: #### L 500.2500, L100.0100 ####[facility] [address] [place], [address] MCH (RBC) [Entitic mass] 31.8 pg Normal 27.0-32.0 [facility] Comment on above: Performed By: #### L 500.2500, L100.0100 ####[facility] [address] [place], [address] MCHC (RBC) [Mass/Vol] 32.2 g/dL Normal 32-36 [facility] Comment on above: Performed By: #### L 500.2500, L100.0100 ####[facility] [address] [place], [address] MCV (RBC) [Entitic vol] 98.7 fL Normal 81-99 [facility] Comment on above: Performed By: #### L 500.2500, L100.0100 ####[facility] [address] [place], [address] Platelets (Bld) [#/Vol] 154 10*3/uL Normal 150-450 [facility] Comment on above: Performed By: #### L 500.2500, L100.0100 ####[facility] [address] [place], [address] RBC (Bld) [#/Vol] 3.18 10*6/uL Low 4.2-5.4 [facility] Comment on above: Performed By: #### L 500.2500, L100.0100 ####[facility] [address] [place], [address] RDW SD 58.4 fl High 35.1-43.9 [facility] Comment on above: Performed By: #### L 500.2500, L100.0100 ####[facility] [address] [place], [address] WBC (Bld) [#/Vol] 9.4 10*3/uL Normal 4.4-11.0 [facility] Comment on above: Performed By: #### L 500.2500, L100.0100 ####[facility] [address] [place], [address] Electrocardiogram reportOrde red By: Tod Reynolds on 10-10-2024 EKG study [facility] [address] [place] [address] 12 Lead EKG 10/09/24 0835 MR#: [id number] Acct: [id number] Name: ZAYDA DAVIS Rep #:[id number] : 1965 58 From: Tod patel MD Attending Dr: Dr. Cipriano Baldwin DO Status: ADM IN Ordering Dr: Cipriano Lundberg DO Date: 10/09/24 Location: [facility] Sex: F C Admitted: 10/10/24 Test Reason : CP Blood Pressure : */* mmHG Vent. Rate : 67 BPM Atrial Rate : 67 BPM P-R Int : 290 ms QRS Dur : 118 ms QT Int : 438 ms P-R-T Axes : 30 248 -14 degrees QTcB Int : 462 ms Sinus rhythm with 1st degree A-V block Septal infarct (cited on or before 22-Jul-2022) Lateral infarct , age undetermined Abnormal ECG Confirmed by Tod Reynolds ([id number]), associate editor TONY WALKER ([id number]) on 10/10/2024 1:03:50 PM Referred By: Cipriano Baldwin Confirmed By: Tod Reynolds 10/10/24 1303 Date _ Tod Reynolds MD CC: TERESA Sutton; Dr. Cipriano Baldwin DO; Dr. Cipriano Lundberg DO ~ Signed [facility] Other Phone: Platelet estimateOrdered By: Cipriano Baldwin on 10-10-2024 Platelets LM Ql (Bld) A ADEQ [facility] 12 Lead EKGon 10-09-2024 12 Lead EKG Normal [facility] Absolute lymphocyte countOrd ered By: Cipriano Lundberg on 10-09-2024 Lymphocytes Auto (Unsp spec) [#/Vol] 0.52 10*3/uL Low 0.83-4.51 [facility] Absolute neutrophil countOrd ered By: Cipriano Lundberg on 10-09-2024 Neutrophils (Bld) [#/Vol] 4.2 10*3/uL 2.0-7.7 [facility] Anion gap in Serum or Plasma Ordered By: Cipriano Lundberg on 10-09-2024 Anion gap [Moles/Vol] 12 mmol/L 5-15 [facility] Automated lymphocyte count a s percentage of total leukocytesOrdered By: Cipriano Lundberg on 10-09-2024 Lymphocytes/100 WBC Auto (Unsp spec) 8.5 % Low 19-41 [facility] BUN/creatinine ratioOrdered By: Cipriano Lundberg on 10-09-2024 Urea nitrogen/Creatinine [Mass ratio] 6.6 mg/mg Low 10-20 [facility] Basic Metabolic Profile (BMP )on 10-09-2024 BUN/CRE 6.6 RATIO Low 10-20 [facility] Comment on above: Performed By: #### L 100.0100, L500.2500 ####[facility] [address] [place], [address] Calcium [Mass/Vol] 8.8 mg/dL Normal 7.6-11.0 [facility] Comment on above: Performed By: #### L 100.0100, L500.2500 ####[facility] [address] [place], [address] Chloride [Moles/Vol] 95 mmol/L Low 98-108 [facility] Comment on above: Performed By: #### L 100.0100, L500.2500 ####[facility] [address] [place], [address] CO2 [Moles/Vol] 29.0 mmol/L Normal 21.0-32.0 [facility] Comment on above: Performed By: #### L 100.0100, L500.2500 ####[facility] [address] [place], [address] Creatinine [Mass/Vol] 5.18 mg/dL High 0.70-1.20 [facility] Comment on above: Performed By: #### L 100.0100, L500.2500 ####[facility] [address] [place], [address] ECRCL 13.86 ml/min Low 50-250 [facility] Comment on above: Performed By: #### L 100.0100, L500.2500 ####[facility] [address] [place], [address] GAP 12 Normal 5-15 [facility] Comment on above: Performed By: #### L 100.0100, L500.2500 ####[facility] [address] [place], [address] GFR/1.73 sq M.predicted among non-blacks MDRD (S/P/Bld) [Vol rate/Area] 9 mL/min/{1.73_m2} Low >60 [facility] Comment on above: Result Comment: mL/m in/1.73m2 CKD-EPI Creatinine Equation (2020) Performed By: #### L 100.0100, L500.2500 ####[facility] [address] [place], [address] Glucose [Mass/Vol] 104 mg/dL High 70-99 [facility] Comment on above: Performed By: #### L 100.0100, L500.2500 ####[facility] [address] [place], [address] Potassium [Moles/Vol] 4.5 mmol/L Normal 3.3-5.1 [facility] Comment on above: Result Comment: Hemo lysis present, Results??could be affected.?? Performed By: #### L 100.0100, L500.2500 ####[facility] [address] [place], [address] Sodium [Moles/Vol] 136 mmol/L Normal 133-145 [facility] Comment on above: Performed By: #### L 100.0100, L500.2500 ####[facility] [address] [place], [address] Urea nitrogen [Mass/Vol] 34 mg/dL High 4-19 [facility] Comment on above: Performed By: #### L 100.0100, L500.2500 ####[facility] [address] [place], [address] Basophil percentageOrdered B y: Cipriano Lundberg on 10-09-2024 Basophils/100 WBC (Bld) 0.3 % 0-1 [facility] Bedside Glucoseon 10-09-2024 FINGERSTICK GLU 214 mg/dL High 74-106 [facility] Comment on above: Result Comment: GALA GEMENT OF PATIENT CARE PER NURSING PROTOCOL Performed By: #### L 501.080 ####[facility] [address] [place], [address] FINGERSTICK GLU 97 mg/dL Normal 74-106 [facility] Comment on above: Result Comment: GALA GEMENT OF PATIENT CARE PER NURSING PROTOCOL Performed By: #### L 501.080 ####[facility] [address] [place], [address] FINGERSTICK GLU 94 mg/dL Normal 74-106 [facility] Comment on above: Result Comment: GALA GEMENT OF PATIENT CARE PER NURSING PROTOCOL Performed By: #### L 501.080 ####[facility] [address] [place], [address] CBC W/Diff, Automatedon 09-27 Absolute Lymph 0.52 X10 3/uL Low 0.83-4.51 [facility] Comment on above: Performed By: #### L 100.0100, L500.2500 ####[facility] [address] [place], [address] Absolute Neut 4.2 X10 3/uL Normal 2.0-7.7 [facility] Comment on above: Performed By: #### L 100.0100, L500.2500 ####[facility] [address] [place], [address] Basophils/100 WBC (Bld) 0.3 % Normal 0-1 [facility] Comment on above: Performed By: #### L 100.0100, L500.2500 ####[facility] [address] [place], [address] Eosinophils/100 WBC (Bld) 6.5 % High 0-5 [facility] Comment on above: Performed By: #### L 100.0100, L500.2500 ####[facility] [address] [place], [address] Erythrocyte distribution width (RBC) [Ratio] 15.9 % High 11.6-14.6 [facility] Comment on above: Performed By: #### L 100.0100, L500.2500 ####[facility] [address] [place], [address] Hematocrit (Bld) [Volume fraction] 31.3 % Low 37-47 [facility] Comment on above: Performed By: #### L 100.0100, L500.2500 ####[facility] [address] [place], [address] Hemoglobin (Bld) [Mass/Vol] 10.4 g/dL Low 12.0-15.0 [facility] Comment on above: Performed By: #### L 100.0100, L500.2500 ####[facility] [address] [place], [address] IG% 0.500 Normal 0.0-0.9 [facility] Comment on above: Result Comment: IG% - Immature Granulocytes (promyelocytes, myelocytes andmetamyelocytes) > 1% indicates that a LEFT SHIFT is Present. Performed By: #### L 100.0100, L500.2500 ####[facility] [address] [place], [address] Lymphocytes/100 WBC (Bld) 8.5 % Low 19-41 [facility] Comment on above: Performed By: #### L 100.0100, L500.2500 ####[facility] [address] [place], [address] MCH (RBC) [Entitic mass] 31.9 pg Normal 27.0-32.0 [facility] Comment on above: Performed By: #### L 100.0100, L500.2500 ####[facility] [address] [place], [address] MCHC (RBC) [Mass/Vol] 33.2 g/dL Normal 32-36 [facility] Comment on above: Performed By: #### L 100.0100, L500.2500 ####[facility] [address] [place], [address] MCV (RBC) [Entitic vol] 96.0 fL Normal 81-99 [facility] Comment on above: Performed By: #### L 100.0100, L500.2500 ####[facility] [address] [place], [address] Monocytes/100 WBC (Bld) 16.2 % High 0-10 [facility] Comment on above: Performed By: #### L 100.0100, L500.2500 ####[facility] [address] [place], [address] Neutrophils/100 WBC (Bld) 68.0 % Normal 47-70 [facility] Comment on above: Performed By: #### L 100.0100, L500.2500 ####[facility] [address] [place], [address] Nucleated RBC (Bld) [#/Vol] 0 10*3/uL Normal 0-5 [facility] Comment on above: Performed By: #### L 100.0100, L500.2500 ####[facility] [address] [place], [address] Platelet mean volume (Bld) [Entitic vol] 12.7 fL High 6.2-12.0 [facility] Comment on above: Performed By: #### L 100.0100, L500.2500 ####[facility] [address] [place], [address] Platelets (Bld) [#/Vol] 153 10*3/uL Normal 150-450 [facility] Comment on above: Performed By: #### L 100.0100, L500.2500 ####[facility] [address] [place], [address] RBC (Bld) [#/Vol] 3.26 10*6/uL Low 4.2-5.4 [facility] Comment on above: Performed By: #### L 100.0100, L500.2500 ####[facility] [address] [place], [address] RDW SD 55.8 fl High 35.1-43.9 [facility] Comment on above: Performed By: #### L 100.0100, L500.2500 ####[facility] [address] [place], [address] WBC (Bld) [#/Vol] 6.1 10*3/uL Normal 4.4-11.0 [facility] Comment on above: Performed By: #### L 100.0100, L500.2500 ####[facility] [address] [place], [address] Carbon dioxide, total [Moles /volume] in Central venous bloodOrdered By: Cipriano Lundberg on 10-09-2024 CO2 [Moles/Vol] 29.0 mmol/L 21.0-32.0 [facility] Chest PA and Lateralon 10-09 Chest PA and Lateral Normal [facility] Chloride assayOrdered By: Hudson Lundberg on 10-09-2024 Chloride [Moles/Vol] 95 mmol/L Low 98-108 [facility] Emergency Department Summary on 10-09-2024 Emergency Department Summary Normal [facility] Eosinophil percentageOrdered By: Cipriano Lundberg on 10-09-2024 Eosinophils/100 WBC (Bld) 6.5 % High 0-5 [facility] Erythrocyte distribution wid th ratioOrdered By: Cipriano Lundberg on 10-09-2024 Erythrocyte distribution width (RBC) [Ratio] 15.9 % High 11.6-14.6 [facility] Erythrocyte distribution wid th standard deviationOrdered By: Cipriano Lundberg on 10-09-2024 Erythrocyte distribution width (RBC) [Ratio] 55.8 fl High 35.1-43.9 [facility] Glomerular filtration rate ( GFR) estimation/1.73 sq m using serum, plasma, or whole bOrdered By: Cipriano Lundberg on 10-09-2024 GFR/1.73 sq M.predicted among non-blacks MDRD (S/P/Bld) [Vol rate/Area] 9 mL/min/{1.73_m2} Low >60 [facility] Comment on above: mL/min/1.73m2 CKD-EP I Creatinine Equation (2020) Gram stainOrdered By: Cipriano andrade on 10-09-2024 Microscopic observation Gram stain Nom (Unsp spec) [facility] H AND P Exam - [facility] 10-09-2024 H&P Exam - Hospitalist Normal [facility] Hematocrit Auto (Bld) [Volum e fraction]Ordered By: Cipriano Lundberg on 10-09-2024 Hematocrit (Bld) [Volume fraction] 31.3 % Low 37-47 [facility] Hemoglobin measurementOrdere d By: Cipriano Lundberg on 10-09-2024 Hemoglobin (Bld) [Mass/Vol] 10.4 g/dL Low 12.0-15.0 [facility] Immature granulocytes/100 WB C Auto (Bld)Ordered By: Cipriano Lundberg on 10-09-2024 Immature granulocytes/100 WBC (Bld) 0.500 % 0.0-0.9 [facility] Comment on above: IG% - Immature Granu locytes (promyelocytes, myelocytes and metamyelocytes) > 1% indicates that a LEFT SHIFT is Present. Influenza virus A and B and SARS-CoV-2 (COVID-19) and Respiratory syncytial virus RNAOrdered By: Cipriano Lundberg on 10-09-2024 SARS-CoV-2 (COVID-19) RNA YANI+probe Ql (Unsp spec) [facility] M100.678on 10-09-2024 M100.678 SARS-CoV-2 (COVID 19 ) Negative INFLUENZA A Negative INFLUENZA B Negative RSV PCR Negative Normal [facility] Comment on above: Performed By: #### M 100.192 ####[facility] [address] [place], [address] MCV (mean corpuscular volume ) determinationOrdered By: Cipriano Lundberg on 10-09-2024 MCV (RBC) [Entitic vol] 96.0 fL 81-99 [facility] Mean corpuscular hemoglobin (MCH) determinationOrdered By: Cipriano Lundberg on 10-09-2024 MCH (RBC) [Entitic mass] 31.9 pg 27.0-32.0 [facility] Mean corpuscular hemoglobin concentration (MCHC) determinationOrdered By: Cipriano Lundberg on 10-09-2024 MCHC (RBC) [Mass/Vol] 33.2 g/dL 32-36 [facility] Mean platelet volume determi nationOrdered By: Cipriano Lundberg on 10-09-2024 Platelet mean volume (Bld) [Entitic vol] 12.7 fL High 6.2-12.0 [facility] Microbial respiratory cultur eOrdered By: Cipriano Baldwin on 10-09-2024 Microorganism identified Cx Nom (Unsp spec) or Staphylococcus aureus isolated. [facility] Monocyte percentageOrdered B y: Cipriano Lundberg on 10-09-2024 Monocytes/100 WBC (Bld) 16.2 % High 0-10 [facility] Neutrophil percentageOrdered By: Cipriano Lundberg on 10-09-2024 Neutrophils/100 WBC (Bld) 68.0 % 47-70 [facility] Nucleated red blood cell per centageOrdered By: Cipriano Lundberg on 10-09-2024 Nucleated RBC/100 WBC (Bld) [Ratio] 0 % 0-5 [facility] Platelet countOrdered By: Hudson Lundberg on 10-09-2024 Platelets (Bld) [#/Vol] 153 10*3/uL 150-450 [facility] Potassium measurement (mass/ volume)Ordered By: Cipriano Lundberg on 10-09-2024 Potassium (Unsp spec) [Mass/Vol] 4.5 mmol/L 3.3-5.1 [facility] Comment on above: Hemolysis present, R esults could be affected. RBC Auto (Bld) [#/Vol]Ordere d By: Cipriano Lundberg on 10-09-2024 RBC (Bld) [#/Vol] 3.26 10*6/uL Low 4.2-5.4 [facility] Serum creatinine measurement (mass/volume)Ordered By: Cipriano Lundberg on 10-09-2024 Creatinine [Mass/Vol] 5.18 mg/dL High 0.70-1.20 [facility] Serum glucose measurement (m ass/volume)Ordered By: Cipriano Lundberg on 10-09-2024 Glucose [Mass/Vol] 104 mg/dL High 70-99 [facility] Serum or plasma calcium brody urement (mass/volume)Ordered By: Cipriano Lundberg on 10-09-2024 Calcium [Mass/Vol] 8.8 mg/dL 7.6-11.0 [facility] Serum or plasma urea nitroge n measurement (mass/volume)Ordered By: Cipriano Lundberg on 10-09-2024 Urea nitrogen [Mass/Vol] 34 mg/dL High 4-19 [facility] Sodium levelOrdered By: Cipriano Lundberg on 10-09-2024 Sodium [Moles/Vol] 136 mmol/L 133-145 [facility] White blood cell (WBC) count Ordered By: Cipriano Lundberg on 10-09-2024 WBC (Bld) [#/Vol] 6.1 10*3/uL 4.4-11.0 [facility] XR CHEST 2 VIEWSon XR CHEST 2 VIEWS ORIGINAL HISTORY: Short [...] 08/17/2024 9:57:05 AM Ordering Provider: DENISSE Self [facility] .Auto Diffon 08-16-2024 Basophil, Absolute 0.0 10 3/mcL Normal 0.0-0.3 [facility] Comment on above: Performed By: #### G , MARCELLA, TROPHS, BMP, CBC, ANEU, ADIFF #### [address] [address] Basophils/100 WBC (Bld) 0.3 % Normal 0.0-2.5 [facility] Comment on above: Performed By: #### MARCELLA FULLER, TROPHS, BMP, CBC, ANEU, ADIFF #### [address] [address] Eosinophil, Absolute 0.2 10 3/mcL Normal 0.0-0.7 [facility] Comment on above: Performed By: #### MARCELLA FULLER, TROPHS, BMP, CBC, ANEU, ADIFF #### [address] [address] Eosinophils/100 WBC (Bld) 2.0 % Normal 0.0-6.0 [facility] Comment on above: Performed By: #### G MARCELLA CARRANZA, TROPHS, BMP, CBC, ANEU, ADIFF #### [address] [address] Lymphocyte, Absolute 0.6 10 3/mcL Low 0.9-4.3 [facility] Comment on above: Performed By: #### G MARCELLA CARRANZA, TROPHS, BMP, CBC, ANEU, ADIFF #### [address] [address] Lymphocytes/100 WBC (Bld) 6.0 % Low 20.0-40.0 [facility] Comment on above: Performed By: #### MARCELLA FULLER, TROPHS, BMP, CBC, ANEU, ADIFF #### [address] [address] Monocyte, Absolute 0.8 10 3/mcL Normal 0.1-1.4 [facility] Comment on above: Performed By: #### G AMRCELLA CARRANZA, TROPHS, BMP, CBC, ANEU, ADIFF #### [address] [address] Monocytes/100 WBC (Bld) 8.8 % Normal 2.0-13.0 [facility] Comment on above: Performed By: #### MARCELLA FULLER, TROPHS, BMP, CBC, ANEU, ADIFF #### [address] [address] Neutrophils/100 WBC (Bld) 82.9 % High 50.0-75.0 [facility] Comment on above: Performed By: #### G MARCELLA CARRANZA, TROPHS, BMP, CBC, ANEU, ADIFF #### [address] [address] .GFRon 08-16-2024 Estimated Glomerular Filtration Rate 12 ml/min/1.73sqm Normal [facility] Comment on above: Result Comment: [...] calculate the eGFR results. Performed By: #### G MARCELLA CARRANZA, TROPHS, BMP, CBC, ANEU, ADIFF #### [id number] [place], [place] [address] .NEUABSon 08-16-2024 Neutrophil, Absolute 7.9 10 3/mcL Normal 2.3-8.1 [facility] Comment on above: Performed By: #### MARCELLA FULLER, TROPHS, BMP, CBC, ANEU, ADIFF #### [address] [address] Randi 08-16-2024 Ammonia (P) [Moles/Vol] 14 umol/L Normal 11-32 [facility] Comment on above: Performed By: #### G MARCELLA CARRANZA, TROPHS, BMP, CBC, ANEU, ADIFF #### [address] [address] CBCon 08-16-2024 Erythrocyte distribution width (RBC) [Ratio] 17.6 % High 11.5-15.5 [facility] Comment on above: Performed By: #### G MARCELLA CARRANZA, NAILA, BMP, CBC, ANEU, ADIFF #### [address] [address] Hematocrit (Bld) [Volume fraction] 31.6 % Low 34.0-46.0 [facility] Comment on above: Performed By: #### MARCELLA FULLER, NAILA, BMP, CBC, ANEU, ADIFF #### [address] [address] Hgb 10.7 G/dL Low 12.0-16.0 [facility] Comment on above: Performed By: #### MARCELLA FULLER, NAILA, BMP, CBC, ANEU, ADIFF #### [address] [address] MCH (RBC) [Entitic mass] 33.2 pg High 27.0-33.0 [facility] Comment on above: Performed By: #### MARCELLA FULLER, NAILA, BMP, CBC, ANEU, ADIFF #### [address] [address] MCHC 33.8 G/dL Normal 32.0-36.0 [facility] Comment on above: Performed By: #### MARCELLA FULLER, TROPHS, BMP, CBC, ANEU, ADIFF #### [address] [address] MCV (RBC) [Entitic vol] 98.0 fL Normal 80.0-99.0 [facility] Comment on above: Performed By: #### G MARCELLA CARRANZA, TROPHS, BMP, CBC, ANEU, ADIFF #### [address] [address] Platelet 161 10 3/mcL Normal 150-450 [facility] Comment on above: Performed By: #### G MARCELLA CARRANZA, TROPHS, BMP, CBC, ANEU, ADIFF #### [address] [address] Platelet mean volume (Bld) [Entitic vol] 10.3 fL Normal 6.6-10.5 [facility] Comment on above: Performed By: #### G MARCELLA CARRANZA, TROPHS, BMP, CBC, ANEU, ADIFF #### [address] [address] RBC 3.23 10 6/mcL Low 4.10-5.30 [facility] Comment on above: Performed By: #### MARCELLA FULLER, TROPHS, BMP, CBC, ANEU, ADIFF #### [address] [address] WBC 9.5 10 3/mcL Normal 4.5-10.8 [facility] Comment on above: Performed By: #### MARCELLA FULLER, TROPHS, BMP, CBC, ANEU, ADIFF #### [address] [address] CMPon 08-16-2024 Albumin Level 3.3 G/dL Low 3.5-5.0 [facility] Comment on above: Performed By: #### G MARCELLA CARRANZA, TROPHS, BMP, CBC, ANEU, ADIFF #### [address] [address] Albumin/Globulin [Mass ratio] 0.9 {ratio} Low 1.1-2.5 [facility] Comment on above: Performed By: #### MARCELLA FULLER, TROPHS, BMP, CBC, ANEU, ADIFF #### [address] [address] ALP [Catalytic activity/Vol] 88 U/L Normal 40-135 [facility] Comment on above: Performed By: #### G MARCELLA CARRANZA, ALEXS, BMP, CBC, ANEU, ADIFF #### [address] [address] ALT [Catalytic activity/Vol] 33 U/L Normal 14-59 [facility] Comment on above: Performed By: #### MARCELLA FULLER, NAILA, BMP, CBC, ANEU, ADIFF #### [address] [address] AST [Catalytic activity/Vol] 25 U/L Normal 10-40 [facility] Comment on above: Performed By: #### MARCELLA FULLER, NAILA, BMP, CBC, ANEU, ADIFF #### [address] [address] Bili Total 1.0 mg/dL Normal 0.2-1.0 [facility] Comment on above: Result Comment: Use of this assay is not recommended for patients undergoing treatment with eltrombopag due to the potential for falsely elevated results. Performed By: #### MARCELLA FULLER TROPHS, RUDDY, CBC, ANEU, ADIFF #### [address] [address] BUN/Creatinine Ratio 7 ratio Normal 7-27 [facility] Comment on above: Performed By: #### MARCELLA FULLER TROPHS, BMP, CBC, ANEU, ADIFF #### [address] [address] Calcium [Mass/Vol] 9.0 mg/dL Normal 8.4-10.2 [facility] Comment on above: Performed By: #### MARCELLA FULLER TROPHS, BMP, CBC, ANEU, ADIFF #### [address] [address] Chloride [Moles/Vol] 98 mmol/L Normal 98-107 [facility] Comment on above: Performed By: #### MARCELLA FULLER, TROPHS, BMP, CBC, ANEU, ADIFF #### [address] [address] CO2 [Moles/Vol] 35 mmol/L High 22-29 [facility] Comment on above: Performed By: #### MARCELLA FULLER, TROPHS, BMP, CBC, ANEU, ADIFF #### [address] [address] Creatinine [Mass/Vol] 3.97 mg/dL High 0.51-0.95 [facility] Comment on above: Performed By: #### MARCELLA FULLER, TROPHS, BMP, CBC, ANEU, ADIFF #### [place] [address] Electrolyte Balance 2.0 mEq/L Low 4.0-15.0 [facility] Comment on above: Performed By: #### MARCELLA FULLER, TROPHS, BMP, CBC, ANEU, ADIFF #### [place] [address] Globulin 3.7 G/dL Normal 2.7-4.4 [facility] Comment on above: Performed By: #### MARCELLA FULLER, ALEXS, BMP, CBC, ANEU, ADIFF #### [address] [address] Glucose [Mass/Vol] 137 mg/dL High 70-105 [facility] Comment on above: Performed By: #### MARCELLA FULLER, ALEXS, BMP, CBC, ANEU, ADIFF #### [address] [address] Potassium [Moles/Vol] 4.9 mmol/L Normal 3.5-5.1 [facility] Comment on above: Performed By: #### MARCELLA FULLER, TROPHS, BMP, CBC, ANEU, ADIFF #### [place] [address] Sodium [Moles/Vol] 135 mmol/L Low 136-145 [facility] Comment on above: Performed By: #### MARCELLA FULLER, TROPHS, BMP, CBC, ANEU, ADIFF #### [id number] [place], [place] [address] Total Protein 7.0 G/dL Normal 6.4-8.2 [facility] Comment on above: Performed By: #### G MARCELLA CARRANZA, TROPHS, BMP, CBC, ANEU, ADIFF #### [facility] [address] [place], [place] [address] Urea nitrogen [Mass/Vol] 28 mg/dL High 7-18 [facility] Comment on above: Performed By: #### G MARCELLA CARRANZA, TROPHS, BMP, CBC, ANEU, ADIFF #### [id number] [place], [place] [address] LABORATORYOrdered By: SYSTEM SYSTEM on 08-16-2024 Albumin [...] B (Bld) [Mass/Vol] 9376 pg/mL High 0-125 [facility] Comment on above: Result Comment: NT-p roBNP results of less than 300 pg/mL effectively rules out acute congestive heart failure with 99% negative predictive value. Performed By: #### G , W, TROPHS, BMP, CBC, ANEU, ADIFF #### [address] [place] [address] [place], [place] [address] Respiratory Cultureon 2024 RESPC Normal [facility] Comment on above: Performed By: #### M 100.2400, M100.2000 ####[facility] [address] [place], [address] Absolute lymphocyte countOrd ered By: Sondra Dumont on 08-02-2024 Lymphocytes Auto (Unsp spec) [#/Vol] 0.73 10*3/uL Low 0.83-4.51 [facility] Absolute neutrophil countOrd ered By: Sondra Dumont on 08-02-2024 Neutrophils (Bld) [#/Vol] 5.3 10*3/uL 2.0-7.7 [facility] Automated lymphocyte count a s percentage of total leukocytesOrdered By: Sondra Dumont on 08-02-2024 Lymphocytes/100 WBC Auto (Unsp spec) 10.5 % Low 19-41 [facility] Basophil percentageOrdered B y: Sondra Dumont on 08-02-2024 Basophils/100 WBC (Bld) 0.3 % 0-1 [facility] Bedside Glucoseon 08-02-2024 FINGERSTICK GLU 94 mg/dL Normal 74-106 [facility] Comment on above: Result Comment: GALA GEMENT OF PATIENT CARE PER NURSING PROTOCOL Performed By: #### L 501.080 ####[facility] [address] [place], [address] FINGERSTICK GLU 129 mg/dL High 74-106 [facility] Comment on above: Result Comment: GALA GEMENT OF PATIENT CARE PER NURSING PROTOCOL Performed By: #### L 501.080 ####[facility] [address] [place], [address] FINGERSTICK GLU 133 mg/dL High 74-106 [facility] Comment on above: Result Comment: GALA GEMENT OF PATIENT CARE PER NURSING PROTOCOL Performed By: #### L 501.080 ####[facility] [address] [place], [address] CBC W/Diff, Automatedon 05-0 6-2025 Absolute Lymph 0.73 X10 3/uL Low 0.83-4.51 [facility] Comment on above: Performed By: #### L 100.0100 ####[facility] [address] [place], [address] Absolute Neut 5.3 X10 3/uL Normal 2.0-7.7 [facility] Comment on above: Performed By: #### L 100.0100 ####[facility] [address] [place], [address] Basophils/100 WBC (Bld) 0.3 % Normal 0-1 [facility] Comment on above: Performed By: #### L 100.0100 ####[facility] [address] [place], [address] Eosinophils/100 WBC (Bld) 3.2 % Normal 0-5 [facility] Comment on above: Performed By: #### L 100.0100 ####[facility] [address] [place], [address] Erythrocyte distribution width (RBC) [Ratio] 15.7 % High 11.6-14.6 [facility] Comment on above: Performed By: #### L 100.0100 ####[facility] [address] [place], [address] Hematocrit (Bld) [Volume fraction] 27.0 % Low 37-47 [facility] Comment on above: Performed By: #### L 100.0100 ####[facility] [address] [place], [address] Hemoglobin (Bld) [Mass/Vol] 9.1 g/dL Low 12.0-15.0 [facility] Comment on above: Performed By: #### L 100.0100 ####[facility] [address] [place], [address] IG% 0.700 Normal 0.0-0.9 [facility] Comment on above: Result Comment: IG% - Immature Granulocytes (promyelocytes, myelocytes andmetamyelocytes) > 1% indicates that a LEFT SHIFT is Present. Performed By: #### L 100.0100 ####[facility] [address] [place], [address] Lymphocytes/100 WBC (Bld) 10.5 % Low 19-41 [facility] Comment on above: Performed By: #### L 100.0100 ####[facility] [address] [place], [address] MCH (RBC) [Entitic mass] 32.9 pg High 27.0-32.0 [facility] Comment on above: Performed By: #### L 100.0100 ####[facility] [address] [place], [address] MCHC (RBC) [Mass/Vol] 33.7 g/dL Normal 32-36 [facility] Comment on above: Performed By: #### L 100.0100 ####[facility] [address] [place], [address] MCV (RBC) [Entitic vol] 97.5 fL Normal 81-99 [facility] Comment on above: Performed By: #### L 100.0100 ####[facility] [address] [place], [address] Monocytes/100 WBC (Bld) 8.6 % Normal 0-10 [facility] Comment on above: Performed By: #### L 100.0100 ####[facility] [address] [place], [address] Neutrophils/100 WBC (Bld) 76.7 % High 47-70 [facility] Comment on above: Performed By: #### L 100.0100 ####[facility] [address] [place], [address] Nucleated RBC (Bld) [#/Vol] 0 10*3/uL Normal 0-5 [facility] Comment on above: Performed By: #### L 100.0100 ####[facility] [address] [place], [address] Platelet mean volume (Bld) [Entitic vol] 12.1 fL High 6.2-12.0 [facility] Comment on above: Performed By: #### L 100.0100 ####[facility] [address] [place], [address] Platelets (Bld) [#/Vol] 133 10*3/uL Low 150-450 [facility] Comment on above: Performed By: #### L 100.0100 ####[facility] [address] [place], [address] RBC (Bld) [#/Vol] 2.77 10*6/uL Low 4.2-5.4 [facility] Comment on above: Performed By: #### L 100.0100 ####[facility] [address] [place], [address] RDW SD 55.5 fl High 35.1-43.9 [facility] Comment on above: Performed By: #### L 100.0100 ####[facility] [address] [place], [address] WBC (Bld) [#/Vol] 7.0 10*3/uL Normal 4.4-11.0 [facility] Comment on above: Performed By: #### L 100.0100 ####[facility] [address] [place], [address] Eosinophil percentageOrdered By: Sondra Dumont on 08-02-2024 Eosinophils/100 WBC (Bld) 3.2 % 0-5 [facility] Erythrocyte distribution wid th ratioOrdered By: Sondra Dumont on 08-02-2024 Erythrocyte distribution width (RBC) [Ratio] 15.7 % High 11.6-14.6 [facility] Erythrocyte distribution wid th standard deviationOrdered By: Sondra Dumont on 08-02-2024 Erythrocyte distribution width (RBC) [Ratio] 55.5 fl High 35.1-43.9 [facility] Glucose measurement at bedsi deOrdered By: Sondra Dumont on 08-02-2024 Glucose [Mass/Vol] 94 mg/dL 74-106 [facility] Comment on above: MANAGEMENT OF PATIEN T CARE PER NURSING PROTOCOL Hematocrit Auto (Bld) [Volum e fraction]Ordered By: Sondra Dumont on 08-02-2024 Hematocrit (Bld) [Volume fraction] 27.0 % Low 37-47 [facility] Hemoglobin measurementOrdere d By: Sondra Dumont on 08-02-2024 Hemoglobin (Bld) [Mass/Vol] 9.1 g/dL Low 12.0-15.0 [facility] Immature granulocytes/100 WB C Auto (Bld)Ordered By: Sondra Dumont on 08-02-2024 Immature granulocytes/100 WBC (Bld) 0.700 % 0.0-0.9 [facility] Comment on above: IG% - Immature Granu locytes (promyelocytes, myelocytes and metamyelocytes) > 1% indicates that a LEFT SHIFT is Present. MCV (mean corpuscular volume ) determinationOrdered By: Sondra Dumont on 08-02-2024 MCV (RBC) [Entitic vol] 97.5 fL 81-99 [facility] Mean corpuscular hemoglobin (MCH) determinationOrdered By: Sondra Dumont on 08-02-2024 MCH (RBC) [Entitic mass] 32.9 pg High 27.0-32.0 [facility] Mean corpuscular hemoglobin concentration (MCHC) determinationOrdered By: Sondra Dumont on 08-02-2024 MCHC (RBC) [Mass/Vol] 33.7 g/dL 32-36 [facility] Mean platelet volume determi nationOrdered By: Sondra Dumont on 08-02-2024 Platelet mean volume (Bld) [Entitic vol] 12.1 fL High 6.2-12.0 [facility] Monocyte percentageOrdered B y: Sondra Dumont on 08-02-2024 Monocytes/100 WBC (Bld) 8.6 % 0-10 [facility] Neutrophil percentageOrdered By: Sondra Dumont on 08-02-2024 Neutrophils/100 WBC (Bld) 76.7 % High 47-70 [facility] Nucleated red blood cell per centageOrdered By: Sondra Dumont on 08-02-2024 Nucleated RBC/100 WBC (Bld) [Ratio] 0 % 0-5 [facility] Platelet countOrdered By: Te Dumont on 08-02-2024 Platelets (Bld) [#/Vol] 133 10*3/uL Low 150-450 [facility] RBC Auto (Bld) [#/Vol]Ordere d By: Sondra Dumont on 08-02-2024 RBC (Bld) [#/Vol] 2.77 10*6/uL Low 4.2-5.4 [facility] White blood cell (WBC) count Ordered By: Sondra Dumont on 08-02-2024 WBC (Bld) [#/Vol] 7.0 10*3/uL 4.4-11.0 [facility] Anion gap in Serum or Plasma Ordered By: Georgina Gill on 08-01-2024 Anion gap [Moles/Vol] 15 mmol/L 5-15 [facility] BUN/creatinine ratioOrdered By: Georgina Gill on 08-01-2024 Urea nitrogen/Creatinine [Mass ratio] 6.6 mg/mg Low 10-20 [facility] Bedside Glucoseon 08-01-2024 FINGERSTICK GLU 149 mg/dL High 74-106 [facility] Comment on above: Result Comment: GALA DENNISON OF PATIENT CARE PER NURSING PROTOCOL Performed By: #### L 501.080 ####[facility] [address] [place], [address] FINGERSTICK GLU 159 mg/dL High 74-106 [facility] Comment on above: Result Comment: GALA GEMENT OF PATIENT CARE PER NURSING PROTOCOL Performed By: #### L 501.080 ####[facility] [address] [place], [address] FINGERSTICK GLU 106 mg/dL Normal 74-106 [facility] Comment on above: Result Comment: GALA GEMENT OF PATIENT CARE PER NURSING PROTOCOL Performed By: #### L 501.080 ####[facility] [address] [place], [address] FINGERSTICK GLU 133 mg/dL High 74-106 [facility] Comment on above: Result Comment: GALA GEMENT OF PATIENT CARE PER NURSING PROTOCOL Performed By: #### L 501.080 ####[facility] [address] [place], [address] Bilirubin, totalOrdered By: Georgina Gill on 08-01-2024 Bilirubin [Mass/Vol] 0.67 mg/dL 0.00-1.30 [facility] CBC W/Diff, Automatedon Absolute Lymph 0.61 X10 3/uL Low 0.83-4.51 [facility] Comment on above: Performed By: #### L 100.0100, L500.4050 ####[facility] [address] [place], [address] Absolute Neut 7.1 X10 3/uL Normal 2.0-7.7 [facility] Comment on above: Performed By: #### L 100.0100, L500.4050 ####[facility] [address] [place], [address] Basophils/100 WBC (Bld) 0.5 % Normal 0-1 [facility] Comment on above: Performed By: #### L 100.0100, L500.4050 ####[facility] [address] [place], [address] Eosinophils/100 WBC (Bld) 2.9 % Normal 0-5 [facility] Comment on above: Performed By: #### L 100.0100, L500.4050 ####[facility] [address] [place], [address] Erythrocyte distribution width (RBC) [Ratio] 16.0 % High 11.6-14.6 [facility] Comment on above: Performed By: #### L 100.0100, L500.4050 ####[facility] [address] [place], [address] Hematocrit (Bld) [Volume fraction] 31.3 % Low 37-47 [facility] Comment on above: Performed By: #### L 100.0100, L500.4050 ####[facility] [address] [place], [address] Hemoglobin (Bld) [Mass/Vol] 10.2 g/dL Low 12.0-15.0 [facility] Comment on above: Performed By: #### L 100.0100, L500.4050 ####[facility] [address] [place], [address] IG% 0.500 Normal 0.0-0.9 [facility] Comment on above: Result Comment: IG% - Immature Granulocytes (promyelocytes, myelocytes andmetamyelocytes) > 1% indicates that a LEFT SHIFT is Present. Performed By: #### L 100.0100, L500.4050 ####[facility] [address] [place], [address] Lymphocytes/100 WBC (Bld) 7.0 % Low 19-41 [facility] Comment on above: Performed By: #### L 100.0100, L500.4050 ####[facility] [address] [place], [address] MCH (RBC) [Entitic mass] 33.2 pg High 27.0-32.0 [facility] Comment on above: Performed By: #### L 100.0100, L500.4050 ####[facility] [address] [place], [address] MCHC (RBC) [Mass/Vol] 32.6 g/dL Normal 32-36 [facility] Comment on above: Performed By: #### L 100.0100, L500.4050 ####[facility] [address] [place], [address] MCV (RBC) [Entitic vol] 102.0 fL High 81-99 [facility] Comment on above: Performed By: #### L 100.0100, L500.4050 ####[facility] [address] [place], [address] Monocytes/100 WBC (Bld) 8.2 % Normal 0-10 [facility] Comment on above: Performed By: #### L 100.0100, L500.4050 ####[facility] [address] [place], [address] Neutrophils/100 WBC (Bld) 80.9 % High 47-70 [facility] Comment on above: Performed By: #### L 100.0100, L500.4050 ####[facility] [address] [place], [address] Nucleated RBC (Bld) [#/Vol] 0 10*3/uL Normal 0-5 [facility] Comment on above: Performed By: #### L 100.0100, L500.4050 ####[facility] [address] [place], [address] Platelet mean volume (Bld) [Entitic vol] 12.9 fL High 6.2-12.0 [facility] Comment on above: Performed By: #### L 100.0100, L500.4050 ####[facility] [address] [place], [address] Platelets (Bld) [#/Vol] 144 10*3/uL Low 150-450 [facility] Comment on above: Performed By: #### L 100.0100, L500.4050 ####[facility] [address] [place], [address] RBC (Bld) [#/Vol] 3.07 10*6/uL Low 4.2-5.4 [facility] Comment on above: Performed By: #### L 100.0100, L500.4050 ####[facility] [address] [place], [address] RDW SD 59.0 fl High 35.1-43.9 [facility] Comment on above: Performed By: #### L 100.0100, L500.4050 ####[facility] [address] [place], [address] WBC (Bld) [#/Vol] 8.7 10*3/uL Normal 4.4-11.0 [facility] Comment on above: Performed By: #### L 100.0100, L500.4050 ####[facility] [address] [place], [address] CDIFF (PCR)on 08-01-2024 CDIFF Is the patient recei ving laxatives? N New/unexplained onset of 3 or more stools in past 24 hrs? Y Pending 027 027 NAP1-B1 Presumptive Negative *for epidemiolologic???use C. Diff PCR Negative- No toxigenic C. Diff Detected Normal [facility] Comment on above: Performed By: #### M 100.637, M100.6796 ####[facility] [address] [place], [address] Carbon dioxide, total [Moles /volume] in Central venous bloodOrdered By: Georgina Gill on 08-01-2024 CO2 [Moles/Vol] 24.8 mmol/L 21.0-32.0 [facility] Chloride assayOrdered By: Liss Gill on 08-01-2024 Chloride [Moles/Vol] 98 mmol/L 98-108 [facility] Clostridium difficile detect ion by polymerase chain reactionOrdered By: Georgina Bridget on 08-01-2024 C. difficile DNA YANI+probe Ql (Unsp spec) [facility] Comprehensive Metabolic Prof ilon 08-01-2024 Albumin [Mass/Vol] 3.5 g/dL Normal 3.5-5.0 [facility] Comment on above: Performed By: #### L 100.0100, L500.4050 ####[facility] [address] [place], [address] Albumin/Globulin [Mass ratio] 1.2 {ratio} Normal 0.9-2.4 [facility] Comment on above: Performed By: #### L 100.0100, L500.4050 ####[facility] [address] [place], [address] ALK PHOS 67 U/L Normal 35-104 [facility] Comment on above: Performed By: #### L 100.0100, L500.4050 ####[facility] [address] [place], [address] ALT [Catalytic activity/Vol] 21 U/L Normal <=34 [facility] Comment on above: Performed By: #### L 100.0100, L500.4050 ####[facility] [address] [place], [address] AST [Catalytic activity/Vol] 31 U/L Normal <=31 [facility] Comment on above: Performed By: #### L 100.0100, L500.4050 ####[facility] [address] [place], [address] Bilirubin [Mass/Vol] 0.67 mg/dL Normal 0.00-1.30 [facility] Comment on above: Performed By: #### L 100.0100, L500.4050 ####[facility] [address] [place], [address] BUN/CRE 6.6 RATIO Low 10-20 [facility] Comment on above: Performed By: #### L 100.0100, L500.4050 ####[facility] [address] [place], [address] Calcium [Mass/Vol] 8.5 mg/dL Normal 7.6-11.0 [facility] Comment on above: Performed By: #### L 100.0100, L500.4050 ####[facility] [address] [place], [address] Chloride [Moles/Vol] 98 mmol/L Normal 98-108 [facility] Comment on above: Performed By: #### L 100.0100, L500.4050 ####[facility] [address] [place], [address] CO2 [Moles/Vol] 24.8 mmol/L Normal 21.0-32.0 [facility] Comment on above: Performed By: #### L 100.0100, L500.4050 ####[facility] [address] [place], [address] Creatinine [Mass/Vol] 6.96 mg/dL High 0.70-1.20 [facility] Comment on above: Performed By: #### L 100.0100, L500.4050 ####[facility] [address] [place], [address] ECRCL 10.15 ml/min Low 50-250 [facility] Comment on above: Performed By: #### L 100.0100, L500.4050 ####[facility] [address] [place], [address] GAP 15 Normal 5-15 [facility] Comment on above: Performed By: #### L 100.0100, L500.4050 ####[facility] [address] [place], [address] GFR/1.73 sq M.predicted among non-blacks MDRD (S/P/Bld) [Vol rate/Area] 6 mL/min/{1.73_m2} Low >60 [facility] Comment on above: Result Comment: mL/m in/1.73m2 CKD-EPI Creatinine Equation (2020) Performed By: #### L 100.0100, L500.4050 ####[facility] [address] [place], [address] Globulin (S) [Mass/Vol] 2.8 g/dL Normal 2.2-4.2 [facility] Comment on above: Performed By: #### L 100.0100, L500.4050 ####[facility] [address] [place], [address] Glucose [Mass/Vol] 109 mg/dL High 70-99 [facility] Comment on above: Performed By: #### L 100.0100, L500.4050 ####[facility] [address] [place], [address] Potassium [Moles/Vol] 4.3 mmol/L Normal 3.3-5.1 [facility] Comment on above: Performed By: #### L 100.0100, L500.4050 ####[facility] [address] [place], [address] Sodium [Moles/Vol] 137 mmol/L Normal 133-145 [facility] Comment on above: Performed By: #### L 100.0100, L500.4050 ####[facility] [address] [place], [address] T PROT 6.3 g/dL Normal 5.9-8.4 [facility] Comment on above: Performed By: #### L 100.0100, L500.4050 ####[facility] [address] [place], [address] Urea nitrogen [Mass/Vol] 46 mg/dL High 4-19 [facility] Comment on above: Performed By: #### L 100.0100, L500.4050 ####[facility] [address] [place], [address] Consultation - Nephrologyon 08-01-2024 Consultation - Nephrology Normal [facility] ENTERIC PATHOGEN PANEL STOOL on 08-01-2024 EP PANEL Normal [facility] Comment on above: Performed By: #### M 100.637, M100.6796 ####[facility] [address] [place], [address] Glomerular filtration rate ( GFR) estimation/1.73 sq m using serum, plasma, or whole bOrdered By: Georgina Gill on 08-01-2024 GFR/1.73 sq M.predicted among non-blacks MDRD (S/P/Bld) [Vol rate/Area] 6 mL/min/{1.73_m2} Low >60 [facility] Comment on above: mL/min/1.73m2 CKD-EP I Creatinine Equation (2020) Gram Stainon 08-01-2024 GS Acceptable Specimen? Yes (<25 Epithelial cells per/lpf) Gram Stain 2+ Gram positive cocci 2+ Gram positive rods Normal [facility] Comment on above: Performed By: #### M 100.2400, M100.2000 ####[facility] [address] [place], [address] Gram stainOrdered By: Georgina Gill on 08-01-2024 Microscopic observation Gram stain Nom (Unsp spec) [facility] Laboratory - Chemistry and C hemistry - challengeOrdered By: Georgina Gill on 08-01-2024 AST [Catalytic activity/Vol] 31 U/L <32 [facility] Microbial respiratory cultur eOrdered By: Georgina Gill on 08-01-2024 Microorganism identified Cx Nom (Unsp spec) Haemophilus influenzae Abnormal [facility] Potassium measurement (mass/ volume)Ordered By: Georgina Gill on 08-01-2024 Potassium (Unsp spec) [Mass/Vol] 4.3 mmol/L 3.3-5.1 [facility] RESPIRATORY PANEL MOLECULARo n 08-01-2024 RP PANEL Normal [facility] Comment on above: Performed By: #### M [id number] ####[facility] [address] [place], [address] Serum creatinine measurement (mass/volume)Ordered By: Georgina Gill on 08-01-2024 Creatinine [Mass/Vol] 6.96 mg/dL High 0.70-1.20 [facility] Serum globulin measurementOr dered By: Georgina Gill 08-01-2024 Globulin (S) [Mass/Vol] 2.8 g/dL 2.2-4.2 [facility] Serum glucose measurement (m ass/volume)Ordered By: Georgina Gill on 08-01-2024 Glucose [Mass/Vol] 109 mg/dL High 70-99 [facility] Serum or plasma alanine ford otransferase (ALT) measurementOrdered By: Georgina Gill 08-01-2024 ALT [Catalytic activity/Vol] 21 U/L <35 [facility] Serum or plasma albumin brody urement (mass/volume)Ordered By: Georgina Gill 08-01-2024 Albumin [Mass/Vol] 3.5 g/dL 3.5-5.0 [facility] Serum or plasma albumin/glob ulin mass ratioOrdered By: Georgina Gill 08-01-2024 Albumin/Globulin [Mass ratio] 1.2 {ratio} 0.9-2.4 [facility] Serum or plasma alkaline celina sphatase measurementOrdered By: Georgina Gill 08-01-2024 ALP [Catalytic activity/Vol] 67 U/L 35-104 [facility] Serum or plasma calcium brody urement (mass/volume)Ordered By: Georgina Gill 08-01-2024 Calcium [Mass/Vol] 8.5 mg/dL 7.6-11.0 [facility] Serum or plasma urea nitroge n measurement (mass/volume)Ordered By: Georgina Gill 08-01-2024 Urea nitrogen [Mass/Vol] 46 mg/dL High 4-19 [facility] Sodium levelOrdered By: Mayrau mn White on 08-01-2024 Sodium [Moles/Vol] 137 mmol/L 133-145 [facility] Total proteinOrdered By: Mayra umn White on 08-01-2024 Protein [Mass/Vol] 6.3 g/dL 5.9-8.4 [facility] .Auto Diffon 07-31-2024 Basophil, Absolute 0.0 10 3/mcL Normal 0.0-0.3 [facility] Comment on above: Performed By: #### MARCELLA FULLER, TROPHS, BMP, CBC, ANEU, ADIFF #### [address] [address] Basophils/100 WBC (Bld) 0.4 % Normal 0.0-2.5 [facility] Comment on above: Performed By: #### MARCELLA FULLER, TROPHS, BMP, CBC, ANEU, ADIFF #### [address] [address] Eosinophil, Absolute 0.4 10 3/mcL Normal 0.0-0.7 [facility] Comment on above: Performed By: #### MARCELLA FULLER, TROPHS, BMP, CBC, ANEU, ADIFF #### [address] [address] Eosinophils/100 WBC (Bld) 4.3 % Normal 0.0-6.0 [facility] Comment on above: Performed By: #### MARCELLA FULLER, TROPHS, BMP, CBC, ANEU, ADIFF #### [address] [address] Lymphocyte, Absolute 0.4 10 3/mcL Low 0.9-4.3 [facility] Comment on above: Performed By: #### MARCELLA FULLER, TROPHS, BMP, CBC, ANEU, ADIFF #### [address] [address] Lymphocytes/100 WBC (Bld) 4.7 % Low 20.0-40.0 [facility] Comment on above: Performed By: #### MARCELLA FULLER, TROPHS, BMP, CBC, ANEU, ADIFF #### [id number] [place], [place] [address] Monocyte, Absolute 0.8 10 3/mcL Normal 0.1-1.4 [facility] Comment on above: Performed By: #### G MARCELLA CARRANZA, TROPHS, BMP, CBC, ANEU, ADIFF #### [id number] [place], [place] [address] Monocytes/100 WBC (Bld) 10.1 % Normal 2.0-13.0 [facility] Comment on above: Performed By: #### G MARCELLA CARRANZA, TROPHS, BMP, CBC, ANEU, ADIFF #### [id number] [place], [place] [address] Neutrophils/100 WBC (Bld) 80.5 % High 50.0-75.0 [facility] Comment on above: Performed By: #### MARCELLA FULLER, TROPHS, BMP, CBC, ANEU, ADIFF #### [id number] [place], [place] [address] .GFRon 07-31-2024 Estimated Glomerular Filtration Rate 10 ml/min/1.73sqm Normal [facility] Comment on above: Result Comment: [...] calculate the eGFR results. Performed By: #### G MARCELLA CARRANZA, TROPHS, BMP, CBC, ANEU, ADIFF #### [id number] [place], [place] [address] .MDWon 07-31-2024 Monocyte Distribution Width 23.91 High 0.00-20.00 [facility] Comment on above: Result Comment: For adults in ED, MDW>20.0 may be associated with a higher risk of sepsis during the first 12hrs of hospital admission Performed By: #### MARCELLA FULLER, TROPHS, BMP, CBC, ANEU, ADIFF #### [address] [address] .NEUABSon 07-31-2024 Neutrophil, Absolute 6.7 10 3/mcL Normal 2.3-8.1 [facility] Comment on above: Performed By: #### MARCELLA FULLER, TROPHS, BMP, CBC, ANEU, ADIFF #### [address] [address] BMPon 07-31-2024 BUN/Creatinine Ratio 7 ratio Normal 7-27 [facility] Comment on above: Performed By: #### MARCELLA FULLER, NAILA, BMP, CBC, ANEU, ADIFF #### [address] [address] Calcium [Mass/Vol] 8.8 mg/dL Normal 8.4-10.2 [facility] Comment on above: Performed By: #### MARCELLA FULLER TROPHS, BMP, CBC, ANEU, ADIFF #### [address] [address] Chloride [Moles/Vol] 101 mmol/L Normal 98-107 [facility] Comment on above: Performed By: #### MARCELLA FULLER, TROPHKarie, BMP, CBC, ANEU, ADIFF #### [address] [address] CO2 [Moles/Vol] 34 mmol/L High 22-29 [facility] Comment on above: Performed By: #### MARCELLA FULLER, TROPHS, BMP, CBC, ANEU, ADIFF #### [address] [address] Creatinine [Mass/Vol] 4.90 mg/dL High 0.51-0.95 [facility] Comment on above: Performed By: #### MARCELLA FULLER, TROPHS, BMP, CBC, ANEU, ADIFF #### [address] [address] Electrolyte Balance 4.0 mEq/L Normal 4.0-15.0 [facility] Comment on above: Performed By: #### MARCELLA FULLER, TROPHS, BMP, CBC, ANEU, ADIFF #### [address] [address] Glucose [Mass/Vol] 168 mg/dL High 70-105 [facility] Comment on above: Performed By: #### G MARCELLA CARRANZA, TROPHS, BMP, CBC, ANEU, ADIFF #### [address] [address] Potassium [Moles/Vol] 4.4 mmol/L Normal 3.5-5.1 [facility] Comment on above: Performed By: #### MARCELLA FULLER TROPHS, BMP, CBC, ANEU, ADIFF #### [address] [address] Sodium [Moles/Vol] 139 mmol/L Normal 136-145 [facility] Comment on above: Performed By: #### MARCELLA FULLER, TROPHS, BMP, CBC, ANEU, ADIFF #### [address] [address] Urea nitrogen [Mass/Vol] 34 mg/dL High 7-18 [facility] Comment on above: Performed By: #### MARCELLA FULLER, NAILA, BMP, CBC, ANEU, ADIFF #### [address] [address] CBCon 07-31-2024 Erythrocyte distribution width (RBC) [Ratio] 17.1 % High 11.5-15.5 [facility] Comment on above: Performed By: #### MARCELLA FULLER, TROPHS, BMP, CBC, ANEU, ADIFF #### [address] [address] Hematocrit (Bld) [Volume fraction] 32.8 % Low 34.0-46.0 [facility] Comment on above: Performed By: #### G MARCELLA CARRANZA, TROPHS, BMP, CBC, ANEU, ADIFF #### [address] [address] Hgb 11.2 G/dL Low 12.0-16.0 [facility] Comment on above: Performed By: #### G MARCELLA CARRANZA, TROPHS, BMP, CBC, ANEU, ADIFF #### [address] [address] MCH (RBC) [Entitic mass] 33.5 pg High 27.0-33.0 [facility] Comment on above: Performed By: #### G MARCELLA CARRANZA, TROPHS, BMP, CBC, ANEU, ADIFF #### [place] [address] MCHC 34.2 G/dL Normal 32.0-36.0 [facility] Comment on above: Performed By: #### MARCELLA FULLER, TROPHS, BMP, CBC, ANEU, ADIFF #### [address] [address] MCV (RBC) [Entitic vol] 98.1 fL Normal 80.0-99.0 [facility] Comment on above: Performed By: #### MARCELLA FULLER, TROPHS, BMP, CBC, ANEU, ADIFF #### [address] [address] Platelet 149 10 3/mcL Low 150-450 [facility] Comment on above: Performed By: #### MARCELLA FULLER, TROPHS, BMP, CBC, ANEU, ADIFF #### [address] [address] Platelet mean volume (Bld) [Entitic vol] 10.9 fL High 6.6-10.5 [facility] Comment on above: Performed By: #### MARCELLA FULLER, TROPHS, BMP, CBC, ANEU, ADIFF #### [place] [id number] RBC 3.35 10 6/mcL Low 4.10-5.30 [facility] Comment on above: Performed By: #### G MARCELLA CARRANZA, TROPHS, BMP, CBC, ANEU, ADIFF #### [id number] [place], [place] [address] WBC 8.3 10 3/mcL Normal 4.5-10.8 [facility] Comment on above: Performed By: #### G MARCELLA CARRANZA, TROPHS, BMP, CBC, ANEU, ADIFF #### [facility] [address] [place], [place] [address] CBC W/Diff, Automatedon 05-0 4-2024 Absolute Lymph 0.58 X10 3/uL Low 0.83-4.51 [facility] Comment on above: Performed By: #### L 100.0100, L500.4050 ####[facility] [address] [place], [address] Absolute Neut 10.2 X10 3/uL High 2.0-7.7 [facility] Comment on above: Performed By: #### L 100.0100, L500.4050 ####[facility] [address] [place], [address] Basophils/100 WBC (Bld) 0.3 % Normal 0-1 [facility] Comment on above: Performed By: #### L 100.0100, L500.4050 ####[facility] [address] [place], [address] Eosinophils/100 WBC (Bld) 2.0 % Normal 0-5 [facility] Comment on above: Performed By: #### L 100.0100, L500.4050 ####[facility] [address] [place], [address] Erythrocyte distribution width (RBC) [Ratio] 15.9 % High 11.6-14.6 [facility] Comment on above: Performed By: #### L 100.0100, L500.4050 ####[facility] [address] [place], [address] Hematocrit (Bld) [Volume fraction] 32.9 % Low 37-47 [facility] Comment on above: Performed By: #### L 100.0100, L500.4050 ####[facility] [address] [place], [address] Hemoglobin (Bld) [Mass/Vol] 10.9 g/dL Low 12.0-15.0 [facility] Comment on above: Performed By: #### L 100.0100, L500.4050 ####[facility] [address] [place], [address] IG% 0.500 Normal 0.0-0.9 [facility] Comment on above: Result Comment: IG% - Immature Granulocytes (promyelocytes, myelocytes andmetamyelocytes) > 1% indicates that a LEFT SHIFT is Present. Performed By: #### L 100.0100, L500.4050 ####[facility] [address] [place], [address] Lymphocytes/100 WBC (Bld) 4.9 % Low 19-41 [facility] Comment on above: Performed By: #### L 100.0100, L500.4050 ####[facility] [address] [place], [address] MCH (RBC) [Entitic mass] 33.1 pg High 27.0-32.0 [facility] Comment on above: Performed By: #### L 100.0100, L500.4050 ####[facility] [address] [place], [address] MCHC (RBC) [Mass/Vol] 33.1 g/dL Normal 32-36 [facility] Comment on above: Performed By: #### L 100.0100, L500.4050 ####[facility] [address] [place], [address] MCV (RBC) [Entitic vol] 100.0 fL High 81-99 [facility] Comment on above: Performed By: #### L 100.0100, L500.4050 ####[facility] [address] [place], [address] Monocytes/100 WBC (Bld) 6.5 % Normal 0-10 [facility] Comment on above: Performed By: #### L 100.0100, L500.4050 ####[facility] [address] [place], [address] Neutrophils/100 WBC (Bld) 85.8 % High 47-70 [facility] Comment on above: Performed By: #### L 100.0100, L500.4050 ####[facility] [address] [place], [address] Nucleated RBC (Bld) [#/Vol] 0 10*3/uL Normal 0-5 [facility] Comment on above: Performed By: #### L 100.0100, L500.4050 ####[facility] [address] [place], [address] Platelet mean volume (Bld) [Entitic vol] 12.6 fL High 6.2-12.0 [facility] Comment on above: Performed By: #### L 100.0100, L500.4050 ####[facility] [address] [place], [address] Platelets (Bld) [#/Vol] 175 10*3/uL Normal 150-450 [facility] Comment on above: Performed By: #### L 100.0100, L500.4050 ####[facility] [address] [place], [address] RBC (Bld) [#/Vol] 3.29 10*6/uL Low 4.2-5.4 [facility] Comment on above: Performed By: #### L 100.0100, L500.4050 ####[facility] [address] [place], [address] RDW SD 57.1 fl High 35.1-43.9 [facility] Comment on above: Performed By: #### L 100.0100, L500.4050 ####[facility] [address] [place], [address] WBC (Bld) [#/Vol] 11.9 10*3/uL High 4.4-11.0 [facility] Comment on above: Performed By: #### L 100.0100, L500.4050 ####[facility] [address] [place], [address] CVFLURVon 07-31-2024 FLU A PCR Negative Normal Negative [facility] Comment on above: Performed By: #### MARCELLA FULLER, NAILA, BMP, CBC, ANEU, ADIFF #### [id number] [place], [place] [address] FLU B PCR Negative Normal Negative [facility] Comment on above: Performed By: #### MARCELLA FULLER, NAILA, BMP, CBC, ANEU, ADIFF #### [facility] [address] [place], [place] [address] RSV PCR Negative Normal Negative [facility] Comment on above: Performed By: #### MARCELLA FULLER, NAILA, BMP, CBC, ANEU, ADIFF #### [facility] [address] [place], [place] [address] SARS-CoV-2 (COVID-19) RNA YANI+probe Ql (Unsp spec) Negative Normal Negative [facility] Comment on above: Result Comment: [...] cause inaccurate positive results. Performed By: #### G FR, W, TROPHS, BMP, CBC, ANEU, ADIFF #### [address] [place], [place] [address] Chest PA and Lateralon 07-31 Chest PA and Lateral Normal [facility] Comprehensive Metabolic Prof ilon 07-31-2024 Albumin [Mass/Vol] 3.6 g/dL Normal 3.5-5.0 [facility] Comment on above: Performed By: #### L 100.0100, L500.4050 ####[facility] [address] [place], [address] Albumin/Globulin [Mass ratio] 1.2 {ratio} Normal 0.9-2.4 [facility] Comment on above: Performed By: #### L 100.0100, L500.4050 ####[facility] [address] [place], [address] ALK PHOS 75 U/L Normal 35-104 [facility] Comment on above: Performed By: #### L 100.0100, L500.4050 ####[facility] [address] [place], [address] ALT [Catalytic activity/Vol] 21 U/L Normal <=34 [facility] Comment on above: Performed By: #### L 100.0100, L500.4050 ####[facility] [address] [place], [address] AST [Catalytic activity/Vol] 31 U/L Normal <=31 [facility] Comment on above: Performed By: #### L 100.0100, L500.4050 ####[facility] [address] [place], [address] Bilirubin [Mass/Vol] 0.56 mg/dL Normal 0.00-1.30 [facility] Comment on above: Performed By: #### L 100.0100, L500.4050 ####[facility] [address] [place], [address] BUN/CRE 6.5 RATIO Low 10-20 [facility] Comment on above: Performed By: #### L 100.0100, L500.4050 ####[facility] [address] [place], [address] Calcium [Mass/Vol] 8.6 mg/dL Normal 7.6-11.0 [facility] Comment on above: Performed By: #### L 100.0100, L500.4050 ####[facility] [address] [place], [address] Chloride [Moles/Vol] 96 mmol/L Low 98-108 [facility] Comment on above: Performed By: #### L 100.0100, L500.4050 ####[facility] [address] [place], [address] CO2 [Moles/Vol] 24.3 mmol/L Normal 21.0-32.0 [facility] Comment on above: Performed By: #### L 100.0100, L500.4050 ####[facility] [address] [place], [address] Creatinine [Mass/Vol] 5.93 mg/dL High 0.70-1.20 [facility] Comment on above: Performed By: #### L 100.0100, L500.4050 ####[facility] [address] [place], [address] ECRCL 11.94 ml/min Low 50-250 [facility] Comment on above: Performed By: #### L 100.0100, L500.4050 ####[facility] [address] [place], [address] GAP 15 Normal 5-15 [facility] Comment on above: Performed By: #### L 100.0100, L500.4050 ####[facility] [address] [place], [address] GFR/1.73 sq M.predicted among non-blacks MDRD (S/P/Bld) [Vol rate/Area] 8 mL/min/{1.73_m2} Low >60 [facility] Comment on above: Result Comment: mL/m in/1.73m2 CKD-EPI Creatinine Equation (2020) Performed By: #### L 100.0100, L500.4050 ####[facility] [address] [place], [address] Globulin (S) [Mass/Vol] 2.9 g/dL Normal 2.2-4.2 [facility] Comment on above: Performed By: #### L 100.0100, L500.4050 ####[facility] [address] [place], [address] Glucose [Mass/Vol] 224 mg/dL High 70-99 [facility] Comment on above: Performed By: #### L 100.0100, L500.4050 ####[facility] [address] [place], [address] Potassium [Moles/Vol] 4.6 mmol/L Normal 3.3-5.1 [facility] Comment on above: Performed By: #### L 100.0100, L500.4050 ####[facility] [address] [place], [address] Sodium [Moles/Vol] 135 mmol/L Normal 133-145 [facility] Comment on above: Performed By: #### L 100.0100, L500.4050 ####[facility] [address] [place], [address] T PROT 6.5 g/dL Normal 5.9-8.4 [facility] Comment on above: Performed By: #### L 100.0100, L500.4050 ####[facility] [address] [place], [address] Urea nitrogen [Mass/Vol] 39 mg/dL High 4-19 [facility] Comment on above: Performed By: #### L 100.0100, L500.4050 ####[facility] [address] [place], [address] Emergency Department Summary on 07-31-2024 Emergency Department Summary Normal [facility] H AND P Exam - Hospitaliston 07-31-2024 H&P Exam - Hospitalist Normal [facility] Influenza virus A and B and SARS-CoV-2 (COVID-19) and Respiratory syncytial virus RNAOrdered By: Scott Saldana on 07-31-2024 SARS-CoV-2 (COVID-19) RNA YANI+probe Ql (Unsp spec) [facility] L503.7505on 07-31-2024 Natriuretic peptide B (Bld) [Mass/Vol] 5291 pg/mL High <=900 [facility] Comment on above: Result Comment: Hear t Failure Unlikely: < 300 pg/mLHeart Failure Likely< 50 Years: > 450 pg/mL50-75 Years: > 900 pg/mL>75 Years: > 1800 pg/mL Performed By: #### L 503.6439 ####[facility] [address] [place], [address] L509.7001on 07-31-2024 Procalcitonin 0.47 ng/mL High <=0.10 [facility] Comment on above: Result Comment: Inte rpretation:<0.10-0.25 ng/mL: Antibiotic therapy discouraged. Bacterialinfection unlikely.0.25-0.50 ng/mL: Antibiotic therapy encouraged. Bacterialinfection possible.>0.50 ng/mL: Antibiotic therapy strongly encouraged.Suggestive of presence of bacterial infection.PCT should always be interpreted in the clinical context ofthe patient. Therefore, clinicians should use the PCTresults in conjunction with other laboratory findings andclinical signs of the patient. Performed By: #### L 509.7001 ####[facility] [address] [place], [address] LABORATORYOrdered By: SYSTEM SYSTEM on 07-31-2024 Basophils [...] ng/L Male: 0-76 ng/L Testing performed on [employer] using a homogeneous sandwich chemiluminescent immunoassay based on [employer] technology. Urea nitrogen [Mass/Vol] 34 mg/dL High [...] INFLUENZA B Negative RSV PCR Negative Normal [facility] Comment on above: Performed By: #### M 100.678 ####[facility] [address] [place], [address] Magnesiumon 07-31-2024 Magnesium [Mass/Vol] 2.0 mg/dL Normal 1.5-2.2 [facility] Comment on above: Order Comment: Comme nts: May add to ED labsComments: may add to ED labs Performed By: #### L 501.2300, L501.5200 ####[facility] [address] [place], [place], [address] Magnesium measurement (mass/ volume)Ordered By: Georgina Gill on 07-31-2024 Magnesium (Unsp spec) [Mass/Vol] 2.0 mg/dL 1.5-2.2 [facility] Natriuretic peptide.B prohor jessica N-Terminal [Mass/volume] in Serum or PlasmaOrdered By: Scott Saldana on 07-31-2024 Natriuretic peptide.B prohormone N-Terminal [Mass/Vol] 5291 pg/mL High <900 [facility] Comment on above: Heart Failure Unlike ly: < 300 pg/mLHeart Failure Likely< 50 Years: > 450 pg/mL50-75 Years: > 900 pg/mL>75 Years: > 1800 pg/mL Phosphoruson 07-31-2024 Phosphate [Mass/Vol] 3.3 mg/dL Normal 2.7-4.5 [facility] Comment on above: Order Comment: Comme nts: May add to ED labsComments: may add to ED labs Performed By: #### L 501.2300, L501.5200 ####[facility] [address] [place], [address] Procalcitonin [Mass/volume] in Serum or Plasma by ImmunoassayOrdered By: Georgina Gill on 07-31-2024 Procalcitonin IA [Mass/Vol] 0.47 ng/mL High <0.11 [facility] Comment on above: Interpretation:<0.10 -0.25 ng/mL: Antibiotic therapy discouraged. Bacterial infection unlikely.0.25-0.50 ng/mL: Antibiotic therapy encouraged. Bacterial infection possible.>0.50 ng/mL: Antibiotic therapy strongly encouraged. Suggestive of presence of bacterial infection.PCT should always be interpreted in the clinical context of the patient. Therefore, clinicians should use the PCT results in conjunction with other laboratory findings and clinical signs of the patient. Respiratory pathogens detect ion panel by molecular detection methodOrdered By: Georgina Gill on 07-31-2024 Respiratory pathogens DNA and RNA panel YANI+probe (Resp) Human [place] [facility] 07-31-2024 High Sensitivity Troponin I 16 ng/L Normal 0-51 [facility] Comment on above: Result Comment: High Sensitive Troponin I Reference Ranges: Female: 0-51 ng/L Male: 0-76 ng/L Testing performed on [employer] using a homogeneous sandwich chemiluminescent immunoassay based on [employer] technology. Performed By: #### G , MARCELLA, TROPHS, BMP, CBC, ANEU, ADIFF #### [address] [address] XR CHEST 1 VIEWon 07-31-2024 XR CHEST [...] 07/31/2024 4:10:24 AM Ordering Provider: TORRI Self [facility] LABORATORYOrdered By: Marie graham on 07-14-2024 Glucose [Mass/Vol] 118 mg/dL High 70 - 110 mg/dL [facility] Work Phone: .Auto Diffon 04-20-2024 Basophil, Absolute 0.1 10 3/mcL Normal 0.0-0.2 [facility] Comment on above: Performed By: #### G MARCELLA CARRANZA, TROPHS, BMP, CBC, ANEU, ADIFF #### [address] [address] Basophils/100 WBC (Bld) 0.8 % Normal 0.0-2.5 [facility] Comment on above: Performed By: #### MARCELLA FULLER, TROPHS, BMP, CBC, ANEU, ADIFF #### [address] [address] Eosinophil, Absolute 0.3 10 3/mcL Normal 0.0-0.7 [facility] Comment on above: Performed By: #### MARCELLA FULLER, TROPHS, BMP, CBC, ANEU, ADIFF #### [address] [address] Eosinophils/100 WBC (Bld) 4.6 % Normal 0.0-7.0 [facility] Comment on above: Performed By: #### MARCELLA FULLER, TROPHS, BMP, CBC, ANEU, ADIFF #### [address] [address] Lymphocyte, Absolute 0.8 10 3/mcL Low 0.9-4.3 [facility] Comment on above: Performed By: #### MARCELLA FULLER, TROPHS, BMP, CBC, ANEU, ADIFF #### [address] [address] Lymphocytes/100 WBC (Bld) 11.9 % Low 20.0-40.0 [facility] Comment on above: Performed By: #### MARCELLA FULLER, TROPHS, BMP, CBC, ANEU, ADIFF #### [address] [address] Monocyte, Absolute 0.7 10 3/mcL Normal 0.1-1.4 [facility] Comment on above: Performed By: #### G MARCELLA CARRANZA, TROPHS, BMP, CBC, ANEU, ADIFF #### [address] [address] Monocytes/100 WBC (Bld) 10.7 % Normal 2.0-13.0 [facility] Comment on above: Performed By: #### G , MARCELLA, TROPHS, BMP, CBC, ANEU, ADIFF #### [address] [address] Neutrophils/100 WBC (Bld) 72.0 % Normal 50.0-75.0 [facility] Comment on above: Performed By: #### MARCELLA FULLER, TROPHS, BMP, CBC, ANEU, ADIFF #### [address] [address] .GFRon 04-20-2024 GFR 10 ml/min/1.73sqm Normal [facility] Comment on above: Result Comment: [...] 15 mL/min/1.73 square meters Performed By: #### MARCELLA FULLER, TROPHS, BMP, CBC, ANEU, ADIFF #### [address] [address] GFR Non- 9 ml/min/1.73sqm Normal [facility] Comment on above: Result Comment: [...] 15 mL/min/1.73 square meters Performed By: #### MARCELLA FULLER, TROPHS, BMP, CBC, ANEU, ADIFF #### [address] [address] .NEUABSon 04-20-2024 Neutrophil, Absolute 4.8 10 3/mcL Normal 2.3-8.1 [facility] Comment on above: Performed By: #### MARCELLA FULLER, TROPHS, BMP, CBC, ANEU, ADIFF #### [address] [address] CBCon 04-20-2024 Erythrocyte distribution width (RBC) [Ratio] 18.6 % High 11.5-15.5 [facility] Comment on above: Order Comment: 6 mon ths Performed By: #### T SH, LIPID, CMP, ANEU, ADIFF, CBC, GFR #### [address] [address] Hematocrit (Bld) [Volume fraction] 34.9 % Normal 34.0-46.0 [facility] Comment on above: Order Comment: 6 mon ths Performed By: #### T SH, LIPID, CMP, ANEU, ADIFF, CBC, GFR #### [address] [address] Hgb 11.9 G/dL Low 12.0-16.0 [facility] Comment on above: Order Comment: 6 mon ths Performed By: #### T SH, LIPID, CMP, ANEU, ADIFF, CBC, GFR #### [address] [address] MCH (RBC) [Entitic mass] 32.6 pg Normal 27.0-33.0 [facility] Comment on above: Order Comment: 6 mon ths Performed By: #### T SH, LIPID, CMP, ANEU, ADIFF, CBC, GFR #### [address] [address] MCHC 34.0 G/dL Normal 32.0-36.0 [facility] Comment on above: Order Comment: 6 mon ths Performed By: #### T SH, LIPID, CMP, ANEU, ADIFF, CBC, GFR #### [address] [address] MCV (RBC) [Entitic vol] 96.0 fL Normal 80.0-99.0 [facility] Comment on above: Order Comment: 6 mon ths Performed By: #### T SH, LIPID, CMP, ANEU, ADIFF, CBC, GFR #### [address] [address] Platelet 146 10 3/mcL Low 150-450 [facility] Comment on above: Order Comment: 6 mon ths Performed By: #### T SH, LIPID, CMP, ANEU, ADIFF, CBC, GFR #### [address] [address] Platelet mean volume (Bld) [Entitic vol] 10.7 fL High 6.6-10.5 [facility] Comment on above: Order Comment: 6 mon ths Performed By: #### T SH, LIPID, CMP, ANEU, ADIFF, CBC, GFR #### [address] [address] RBC 3.64 10 6/mcL Low 4.10-5.30 [facility] Comment on above: Order Comment: 6 mon ths Performed By: #### T SH, LIPID, CMP, ANEU, ADIFF, CBC, GFR #### [address] [address] WBC 6.7 10 3/mcL Normal 4.5-10.8 [facility] Comment on above: Order Comment: 6 mon ths Performed By: #### T SH, LIPID, CMP, ANEU, ADIFF, CBC, GFR #### [address] [address] CMPon 04-20-2024 Albumin Level 3.2 G/dL Low 3.5-5.0 [facility] Comment on above: Order Comment: 6 mon ths Performed By: #### G MARCELLA CARRANZA, TROPHS, BMP, CBC, ANEU, ADIFF #### [address] [address] Albumin/Globulin [Mass ratio] 0.9 {ratio} Low 1.1-2.5 [facility] Comment on above: Order Comment: 6 mon ths Performed By: #### MARCELLA FULLER, TROPHS, BMP, CBC, ANEU, ADIFF #### [address] [address] ALP [Catalytic activity/Vol] 87 U/L Normal 40-135 [facility] Comment on above: Order Comment: 6 mon ths Performed By: #### MARCELLA FULLER, TROPHS, BMP, CBC, ANEU, ADIFF #### [address] [address] ALT [Catalytic activity/Vol] 26 U/L Normal 14-59 [facility] Comment on above: Order Comment: 6 mon ths Performed By: #### MARCELLA FULLER, TROPHS, BMP, CBC, ANEU, ADIFF #### [address] [address] AST [Catalytic activity/Vol] 23 U/L Normal 10-40 [facility] Comment on above: Order Comment: 6 mon ths Performed By: #### MARCELLA FULLER, TROPHS, BMP, CBC, ANEU, ADIFF #### [address] [address] Bili Total 0.6 mg/dL Normal 0.2-1.0 [facility] Comment on above: Order Comment: 6 mon ths Result Comment: Use of this assay is not recommended for patients undergoing treatment with eltrombopag due to the potential for falsely elevated results. Performed By: #### G MARCELLA CARRANZA, TROPHS, BMP, CBC, ANEU, ADIFF #### [address] [address] BUN/Creatinine Ratio 8 ratio Normal 7-27 [facility] Comment on above: Order Comment: 6 mon ths Performed By: #### G MARCELLA CARRANZA, TROPHS, BMP, CBC, ANEU, ADIFF #### [address] [address] Calcium [Mass/Vol] 8.8 mg/dL Normal 8.4-10.2 [facility] Comment on above: Order Comment: 6 mon ths Performed By: #### MARCELLA FULLER, TROPHS, BMP, CBC, ANEU, ADIFF #### [address] [address] Chloride [Moles/Vol] 100 mmol/L Normal 98-107 [facility] Comment on above: Order Comment: 6 mon ths Performed By: #### G MARCELLA CARRANZA, TROPHKarie, BMP, CBC, ANEU, ADIFF #### [address] [address] CO2 [Moles/Vol] 34 mmol/L High 22-29 [facility] Comment on above: Order Comment: 6 mon ths Performed By: #### MARCELLA FULLER, TROPHKarie, BMP, CBC, ANEU, ADIFF #### [address] [address] Creatinine [Mass/Vol] 5.17 mg/dL High 0.55-1.02 [facility] Comment on above: Order Comment: 6 mon ths Result Comment: Test ing performed on Siemens Dimension EXL analyzer using a modified kinetic Yolie technique. Performed By: #### MARCELLA FULLER, TROPHS, BMP, CBC, ANEU, ADIFF #### [address] [address] Electrolyte Balance 6.0 mEq/L Normal 4.0-15.0 [facility] Comment on above: Order Comment: 6 mon ths Performed By: #### MARCELLA FULLER, NAILA, BMP, CBC, ANEU, ADIFF #### [address] [address] Globulin 3.7 G/dL Normal [facility] Comment on above: Order Comment: 6 mon ths Performed By: #### MARCELLA FULELR, NAILA, BMP, CBC, ANEU, ADIFF #### [address] [address] Glucose [Mass/Vol] 176 mg/dL High 70-105 [facility] Comment on above: Order Comment: 6 mon ths Performed By: #### MARCELLA FULLER, NAILA, BMP, CBC, ANEU, ADIFF #### [address] [address] Potassium [Moles/Vol] 4.2 mmol/L Normal 3.5-5.1 [facility] Comment on above: Order Comment: 6 mon ths Performed By: #### MARCELLA FULLER TROPHS, RUDDY, CBC, ANEU, ADIFF #### [address] [address] Sodium [Moles/Vol] 140 mmol/L Normal 136-145 [facility] Comment on above: Order Comment: 6 mon ths Performed By: #### MARCELLA FULLER TROPHS, BMP, CBC, ANEU, ADIFF #### [address] [address] Total Protein 6.9 G/dL Normal 6.4-8.2 [facility] Comment on above: Order Comment: 6 mon ths Performed By: #### MARCELLA FULLER, NAILA, BMP, CBC, ANEU, ADIFF #### [address] [address] Urea nitrogen [Mass/Vol] 43 mg/dL High 7-18 [facility] Comment on above: Order Comment: 6 mon ths Performed By: #### Navdeep CARRANZA MARCELLA, TROPHS, BMP, CBC, ANEU, ADIFF #### [place] [place] [address] [place] [address] LABORATORYOrdered By: SYSTEM SYSTEM on 04-20-2024 Albumin [...] above: Interpretive Data: T esting performed on [employer] Dimension EXL analyzer using [...] 04-20-2024 Cholesterol [Mass/Vol] 116 mg/dL Normal 0-200 [facility] Comment on above: Order Comment: Thus Result Comment: Chol esterol Reference Interval: Less than 200 Desirable 200-239 Borderline high risk 240 and above High risk Performed By: #### G MARCELLA CARRANZA, TROPHS, BMP, CBC, ANEU, ADIFF #### [address] [address] Cholesterol in HDL [Mass/Vol] 39 mg/dL Low 40-60 [facility] Comment on above: Order Comment: Thus Performed By: #### MARCELLA FULLER, TROPHS, BMP, CBC, ANEU, ADIFF #### [id number] [place], [place] [address] Cholesterol in LDL [Mass/Vol] 51 mg/dL Normal 0-130 [facility] Comment on above: Order Comment: 6 thus Performed By: #### MARCELLA FULLER, TROPHS, BMP, CBC, ANEU, ADIFF #### [place] [id number] [place], [place] [address] Triglyceride [Mass/Vol] 129 mg/dL Normal 0-150 [facility] Comment on above: Order Comment: 6 thus Result Comment: Trig lyceride Reference Interval: Less than 150 Normal 150-199 Borderline high risk 200-499 High risk 500 or higher Very high risk Performed By: #### G MARCELLA CARRANZA, TROPHS, BMP, CBC, ANEU, ADIFF #### [facility] [address] [place], [place] [address] TSHon 04-20-2024 TSH Qn 3.85 m[IU]/L High 0.36-3.74 [facility] Comment on above: Order Comment: 6 mon ths Performed By: #### G MARCELLA CARRANZA, TROPHS, BMP, CBC, ANEU, ADIFF #### [facility] [address] [place], [place] [address] CBC W/Diff, Automatedon 12- Absolute Lymph 0.64 X10 3/uL Low 0.83-4.51 [facility] Comment on above: Performed By: #### L 100.0100, L500.4050 ####[facility] [address] [place], [address] Absolute Neut 7.4 X10 3/uL Normal 2.0-7.7 [facility] Comment on above: Performed By: #### L 100.0100, L500.4050 ####[facility] [address] [place], [address] Basophils/100 WBC (Bld) 0.3 % Normal 0-1 [facility] Comment on above: Performed By: #### L 100.0100, L500.4050 ####[facility] [address] [place], [address] Eosinophils/100 WBC (Bld) 2.1 % Normal 0-5 [facility] Comment on above: Performed By: #### L 100.0100, L500.4050 ####[facility] [address] [place], [address] Erythrocyte distribution width (RBC) [Ratio] 15.9 % High 11.6-14.6 [facility] Comment on above: Performed By: #### L 100.0100, L500.4050 ####[facility] [address] [place], [address] Hematocrit (Bld) [Volume fraction] 36.8 % Low 37-47 [facility] Comment on above: Performed By: #### L 100.0100, L500.4050 ####[facility] [address] [place], [address] Hemoglobin (Bld) [Mass/Vol] 12.3 g/dL Normal 12.0-15.0 [facility] Comment on above: Performed By: #### L 100.0100, L500.4050 ####[facility] [address] [place], [id number] IG% 0.400 Normal 0.0-0.9 [facility] Comment on above: Result Comment: IG% - Immature Granulocytes (promyelocytes, myelocytes andmetamyelocytes) > 1% indicates that a LEFT SHIFT is Present. Performed By: #### L 100.0100, L500.4050 ####[facility] [address] [place], [address] Lymphocytes/100 WBC (Bld) 6.9 % Low 19-41 [facility] Comment on above: Performed By: #### L 100.0100, L500.4050 ####[facility] [address] [place], [address] MCH (RBC) [Entitic mass] 31.1 pg Normal 27.0-32.0 [facility] Comment on above: Performed By: #### L 100.0100, L500.4050 ####[facility] [address] [place], [address] MCHC (RBC) [Mass/Vol] 33.4 g/dL Normal 32-36 [facility] Comment on above: Performed By: #### L 100.0100, L500.4050 ####[facility] [address] [place], [address] MCV (RBC) [Entitic vol] 93.2 fL Normal 81-99 [facility] Comment on above: Performed By: #### L 100.0100, L500.4050 ####[facility] [address] [place], [address] Monocytes/100 WBC (Bld) 11.2 % High 0-10 [facility] Comment on above: Performed By: #### L 100.0100, L500.4050 ####[facility] [address] [place], [address] Neutrophils/100 WBC (Bld) 79.1 % High 47-70 [facility] Comment on above: Performed By: #### L 100.0100, L500.4050 ####[facility] [address] [place], [address] Nucleated RBC (Bld) [#/Vol] 0 10*3/uL Normal 0-5 [facility] Comment on above: Performed By: #### L 100.0100, L500.4050 ####[facility] [address] [place], [address] Platelet mean volume (Bld) [Entitic vol] 12.1 fL High 6.2-12.0 [facility] Comment on above: Performed By: #### L 100.0100, L500.4050 ####[facility] [address] [place], [address] Platelets (Bld) [#/Vol] 122 10*3/uL Low 150-450 [facility] Comment on above: Performed By: #### L 100.0100, L500.4050 ####[facility] [address] [place], [address] RBC (Bld) [#/Vol] 3.95 10*6/uL Low 4.2-5.4 [facility] Comment on above: Performed By: #### L 100.0100, L500.4050 ####[facility] [address] [place], [address] RDW SD 54.2 fl High 35.1-43.9 [facility] Comment on above: Performed By: #### L 100.0100, L500.4050 ####[facility] [address] [place], [address] WBC (Bld) [#/Vol] 9.3 10*3/uL Normal 4.4-11.0 [facility] Comment on above: Performed By: #### L 100.0100, L500.4050 ####[facility] [address] [place], [address] Chest PA and Lateralon 03-14 Chest PA and Lateral Normal [facility] Comprehensive Metabolic Prof ilon 03-14-2024 Albumin [Mass/Vol] 3.3 g/dL Normal 3.2-5.0 [facility] Comment on above: Performed By: #### L 100.0100, L500.4050 ####[facility] [address] [place], [address] Albumin/Globulin [Mass ratio] 0.9 {ratio} Normal 0.9-2.4 [facility] Comment on above: Performed By: #### L 100.0100, L500.4050 ####[facility] [address] [place], [address] ALK P 86 U/L Normal 45-117 [facility] Comment on above: Performed By: #### L 100.0100, L500.4050 ####[place] [facility] [address] [place], [address] ALT [Catalytic activity/Vol] 34 U/L Normal 13-56 [facility] Comment on above: Performed By: #### L 100.0100, L500.4050 ####[facility] [address] [place], [address] AST [Catalytic activity/Vol] 32 U/L Normal 15-37 [facility] Comment on above: Performed By: #### L 100.0100, L500.4050 ####[facility] [address] [place], [address] Bilirubin [Mass/Vol] 0.80 mg/dL Normal 0.20-1.00 [facility] Comment on above: Result Comment: For patients on eltrombopag therapy, use of Dimension [place] TBIL is not recommended. Performed By: #### L 100.0100, L500.4050 ####[facility] [address] [place], [address] BUN/CRE 8.3 RATIO Low 10-20 [facility] Comment on above: Performed By: #### L 100.0100, L500.4050 ####[facility] [address] [place], [address] CA,Total 8.7 mg/dL Normal 8.5-10.1 [facility] Comment on above: Performed By: #### L 100.0100, L500.4050 ####[facility] [address] [place], [address] Chloride [Moles/Vol] 95 mmol/L Low 98-107 [facility] Comment on above: Performed By: #### L 100.0100, L500.4050 ####[facility] [address] [place], [address] CO2 [Moles/Vol] 27.0 mmol/L Normal 21.0-32.0 [facility] Comment on above: Performed By: #### L 100.0100, L500.4050 ####[facility] [address] [place], [address] Creatinine [Mass/Vol] 7.81 mg/dL Invalid Interpretation Code 0.55-1.02 [facility] Comment on above: Result Comment: Crihenry icauche Result(s) Called at: 11:21:34 03/14/2024 by:Jayla jane TO PATRICIA. Results read back by same.The validity of the calculated GFR GFRAA in patients over70 years has not been determined. Clinical correlation isessential. Performed By: #### L 100.0100, L500.4050 ####[facility] [address] [place], [address] ECRCL 8.77 ml/min Normal [facility] Comment on above: Performed By: #### L 100.0100, L500.4050 ####[facility] [address] [place], [address] EST GFR - AA 7 mL/min Low >60 [facility] Comment on above: Result Comment: Afri can Peruvian GFR Calc Performed By: #### L 100.0100, L500.4050 ####[facility] [address] [place], [address] GAP 11 Normal 5-15 [facility] Comment on above: Performed By: #### L 100.0100, L500.4050 ####[facility] [address] [place], [address] GFR/1.73 sq M.predicted among non-blacks MDRD (S/P/Bld) [Vol rate/Area] 6 mL/min/{1.73_m2} Low >60 [facility] Comment on above: Result Comment: Non- GFR Calc Performed By: #### L 100.0100, L500.4050 ####[facility] [address] [place], [address] Globulin (S) [Mass/Vol] 3.5 g/dL Normal 2.2-4.2 [facility] Comment on above: Performed By: #### L 100.0100, L500.4050 ####[facility] [address] [place], [address] Glucose [Mass/Vol] 253 mg/dL High 74-106 [facility] Comment on above: Result Comment: Gluc ose result greater than or equal to 200 mg/dLsuggests DIABETES MELLITUS per A.D.A. criteria. Performed By: #### L 100.0100, L500.4050 ####[facility] [address] [place], [address] Potassium [Moles/Vol] 4.5 mmol/L Normal 3.5-5.1 [facility] Comment on above: Performed By: #### L 100.0100, L500.4050 ####[facility] [address] [place], [address] Sodium [Moles/Vol] 133 mmol/L Low 136-145 [facility] Comment on above: Performed By: #### L 100.0100, L500.4050 ####[facility] [address] [place], [address] T PROT 6.8 g/dL Normal 6.4-8.2 [facility] Comment on above: Performed By: #### L 100.0100, L500.4050 ####[facility] [address] [place], [address] Urea nitrogen [Mass/Vol] 65 mg/dL High 7-18 [facility] Comment on above: Performed By: #### L 100.0100, L500.4050 ####[facility] [address] [place], [address] Emergency Department Summary on 03-14-2024 Emergency Department Summary Normal [facility] Urinalysis, Completeon 03-14 BACTERIA 1+ /hpf Normal None Seen [facility] Comment on above: Order Comment: COLLE CTOR TO SPECIFY Performed By: #### L 400.0001 ####[facility] [address] [place], [address] EPI,SQUAMOUS 0-5 SEEN Normal 5-10 [facility] Comment on above: Order Comment: COLLE CTOR TO SPECIFY Performed By: #### L 400.0001 ####[facility] [address] [place], [address] Mucus Ql (Urine sed) 1+ /hpf Normal [facility] Comment on above: Order Comment: COLLE CTOR TO SPECIFY Performed By: #### L 400.0001 ####[facility] [address] [place], [address] RBC 0-5 SEEN Normal 0-5 [facility] Comment on above: Order Comment: JAMES CTOR TO SPECIFY Performed By: #### L 400.0001 ####[facility] [address] [place], [address] WBC 0-5 SEEN Normal 0-5 [facility] Comment on above: Order Comment: JAMES CTOR TO SPECIFY Performed By: #### L 400.0001 ####[facility] [address] [place], [address] M100.678on 03-13-2024 M100.678 Normal [facility] Comment on above: Performed By: #### M 100.678 ####[facility] [address] [place], [address] Chest PA and Lateralon 03-12 Chest PA and Lateral Normal [facility] Emergency Department Summary on 03-12-2024 Emergency Department Summary Normal [facility] CBC-Complete Blood Cnt No Di ffon 12-19-2023 HCT Normal 37-47 [facility] Comment on above: Result Comment: Canc elled via OM: Order cancelled - Patient discharged Performed By: #### L 100.0500 ####[facility] [address] [place], [address] HGB Normal 12.0-15.0 [facility] Comment on above: Result Comment: Canc elled via OM: Order cancelled - Patient discharged Performed By: #### L 100.0500 ####[facility] [address] [place], [address] MCH Normal 27.0-32.0 [facility] Comment on above: Result Comment: Canc elled via OM: Order cancelled - Patient discharged Performed By: #### L 100.0500 ####[facility] [address] [place], [address] MCHC Normal 32-36 [facility] Comment on above: Result Comment: Canc elled via OM: Order cancelled - Patient discharged Performed By: #### L 100.0500 ####[facility] [address] [place], [address] MCV Normal 81-99 [facility] Comment on above: Result Comment: Canc elled via OM: Order cancelled - Patient discharged Performed By: #### L 100.0500 ####[facility] [address] [place], [address] PLT Normal 150-450 [facility] Comment on above: Result Comment: Canc elled via OM: Order cancelled - Patient discharged Performed By: #### L 100.0500 ####[facility] [address] [place], [address] RBC Normal 4.2-5.4 [facility] Comment on above: Result Comment: Canc elled via OM: Order cancelled - Patient discharged Performed By: #### L 100.0500 ####[facility] [address] [place], [address] RDW CV Normal 11.6-14.6 [facility] Comment on above: Result Comment: Canc elled via OM: Order cancelled - Patient discharged Performed By: #### L 100.0500 ####[facility] [address] [place], [address] RDW SD Normal 35.1-43.9 [facility] Comment on above: Result Comment: Canc elled via OM: Order cancelled - Patient discharged Performed By: #### L 100.0500 ####[facility] [address] [place], [address] WBC Normal 4.4-11.0 [facility] Comment on above: Result Comment: Canc elled via OM: Order cancelled - Patient discharged Performed By: #### L 100.0500 ####[facility] [address] [place], [address] Culture, Blood (WB)on 2023 CUB No growth in 5 days. Normal [facility] Comment on above: Performed By: #### L 503.6005, M200.1000 ####[facility] [address] [place], [address] CBC-Complete Blood Cnt No Di ffon 12-18-2023 HCT Normal 37-47 [facility] Comment on above: Result Comment: DR Julian DENNISON Performed By: #### L 100.0500, L500.4050 ####[facility] [address] [place], [address] HGB Normal 12.0-15.0 [facility] Comment on above: Result Comment: DR Julian DENNISON Performed By: #### L 100.0500, L500.4050 ####[facility] [address] [place], [address] MCH Normal 27.0-32.0 [facility] Comment on above: Result Comment: DR Julian DENNISON Performed By: #### L 100.0500, L500.4050 ####[facility] [address] [place], [address] MCHC Normal 32-36 [facility] Comment on above: Result Comment: DR Julian NOVOAELLED Performed By: #### L 100.0500, L500.4050 ####[facility] [address] [place], [address] MCV Normal 81-99 [facility] Comment on above: Result Comment: DR Jordan ANCELLED Performed By: #### L 100.0500, L500.4050 ####[facility] [address] [place], [address] PLT Normal 150-450 [facility] Comment on above: Result Comment: DR Jordan ANCELLED Performed By: #### L 100.0500, L500.4050 ####[facility] [address] [place], [address] RBC Normal 4.2-5.4 [facility] Comment on above: Result Comment: DR Julian NOVOAELLED Performed By: #### L 100.0500, L500.4050 ####[facility] [address] [place], [address] RDW CV Normal 11.6-14.6 [facility] Comment on above: Result Comment: DR Julian NOVOAELLED Performed By: #### L 100.0500, L500.4050 ####[facility] [address] [place], [address] RDW SD Normal 35.1-43.9 [facility] Comment on above: Result Comment: DR Julian NOVOAELLED Performed By: #### L 100.0500, L500.4050 ####[facility] [address] [place], [address] WBC Normal 4.4-11.0 [facility] Comment on above: Result Comment: DR Julian NOVOAELLED Performed By: #### L 100.0500, L500.4050 ####[facility] [address] [place], [address] Comprehensive Metabolic Prof azon 12-18-2023 ALB Normal 3.2-5.0 [facility] Comment on above: Result Comment: DR Jordan ANCELLED Performed By: #### L 100.0500, L500.4050 ####[facility] [address] [place], [address] ALK P Normal 45-117 [facility] Comment on above: Result Comment: DR Jordan ANCELLED Performed By: #### L 100.0500, L500.4050 ####[facility] [address] [place], [address] ALT Normal 13-56 [facility] Comment on above: Result Comment: DR Jordan ANCELLED Performed By: #### L 100.0500, L500.4050 ####[facility] [address] [place], [address] AST Normal 15-37 [facility] Comment on above: Result Comment: DR Jordan ANCELLED Performed By: #### L 100.0500, L500.4050 ####[facility] [address] [place], [address] BUN Normal 7-18 [facility] Comment on above: Result Comment: DR Jordan ANCELLED Performed By: #### L 100.0500, L500.4050 ####[facility] [address] [place], [address] BUN/CRE Normal 10-20 [facility] Comment on above: Result Comment: DR Jordan ANCELLED Performed By: #### L 100.0500, L500.4050 ####[facility] [address] [place], [address] CA,Total Normal 8.5-10.1 [facility] Comment on above: Result Comment: DR Jordan ANCELLED Performed By: #### L 100.0500, L500.4050 ####[facility] [address] [place], [address] CL Normal 98-107 [facility] Comment on above: Result Comment: DR Jordan ANCELLED Performed By: #### L 100.0500, L500.4050 ####[facility] [address] [place], [address] CO2 Normal 21.0-32.0 [facility] Comment on above: Result Comment: DR Jordan ANCELLED Performed By: #### L 100.0500, L500.4050 ####[facility] [address] [place], [address] CREAT,SERUM Normal 0.55-1.02 [facility] Comment on above: Result Comment: DR Jordan ANCELLED Performed By: #### L 100.0500, L500.4050 ####[facility] [address] [place], [address] EST GFR Normal >60 [facility] Comment on above: Result Comment: DR Jordan ANCELLED Performed By: #### L 100.0500, L500.4050 ####[facility] [address] [place], [address] EST GFR - AA Normal >60 [facility] Comment on above: Result Comment: DR Jordan ANCELLED Performed By: #### L 100.0500, L500.4050 ####[facility] [address] [place], [address] GAP Normal 5-15 [facility] Comment on above: Result Comment: DR Jordan ANCELLED Performed By: #### L 100.0500, L500.4050 ####[facility] [address] [place], [address] GLU Normal 74-106 [facility] Comment on above: Result Comment: DR Jordan ANCELLED Performed By: #### L 100.0500, L500.4050 ####[facility] [address] [place], [address] Potassium Normal 3.5-5.1 [facility] Comment on above: Result Comment: DR Jordan ANCELLED Performed By: #### L 100.0500, L500.4050 ####[facility] [address] [place], [address] T BILI Normal 0.20-1.00 [facility] Comment on above: Result Comment: DR Jordan ANCELLED Performed By: #### L 100.0500, L500.4050 ####[facility] [address] [place], [address] T PROT Normal 6.4-8.2 [facility] Comment on above: Result Comment: DR Jordan ANCELLED Performed By: #### L 100.0500, L500.4050 ####[facility] [address] [place], [address] Comprehensive Metabolic Profil Normal 136-145 [facility] Comment on above: Result Comment: DR Julian NOVOAELLED Performed By: #### L 100.0500, L500.4050 ####[facility] [address] [place], [address] Bedside Glucoseon 12-17-2023 FINGERSTICK GLU 357 mg/dL High 74-106 [facility] Comment on above: Result Comment: GALA GEMENT OF PATIENT CARE PER NURSING PROTOCOL Performed By: #### L 501.080 ####[facility] [address] [place], [address] FINGERSTICK GLU 308 mg/dL High 74-106 [facility] Comment on above: Result Comment: GALA GEMENT OF PATIENT CARE PER NURSING PROTOCOL Performed By: #### L 501.080 ####[facility] [address] [place], [address] FINGERSTICK GLU 284 mg/dL High 74-106 [facility] Comment on above: Result Comment: GALA GEMENT OF PATIENT CARE PER NURSING PROTOCOL Performed By: #### L 501.080 ####[facility] [address] [place], [address] FINGERSTICK GLU 127 mg/dL High 74-106 [facility] Comment on above: Result Comment: GALA DENNISON OF PATIENT CARE PER NURSING PROTOCOL Performed By: #### L 501.080 ####[facility] [address] [place], [address] CBC-Complete Blood Cnt No Di ffon 12-17-2023 Erythrocyte distribution width (RBC) [Ratio] 15.5 % High 11.6-14.6 [facility] Comment on above: Performed By: #### L 100.0500, L500.4050 ####[facility] [address] [place], [address] Hematocrit (Bld) [Volume fraction] 26.4 % Low 37-47 [facility] Comment on above: Performed By: #### L 100.0500, L500.4050 ####[facility] [address] [place], [address] Hemoglobin (Bld) [Mass/Vol] 8.4 g/dL Low 12.0-15.0 [facility] Comment on above: Performed By: #### L 100.0500, L500.4050 ####[facility] [address] [place], [address] MCH (RBC) [Entitic mass] 30.7 pg Normal 27.0-32.0 [facility] Comment on above: Performed By: #### L 100.0500, L500.4050 ####[facility] [address] [place], [address] MCHC (RBC) [Mass/Vol] 31.8 g/dL Low 32-36 [facility] Comment on above: Performed By: #### L 100.0500, L500.4050 ####[facility] [address] [place], [address] MCV (RBC) [Entitic vol] 96.4 fL Normal 81-99 [facility] Comment on above: Performed By: #### L 100.0500, L500.4050 ####[facility] [address] [place], [address] Platelet mean volume (Bld) [Entitic vol] 12.9 fL High 6.2-12.0 [facility] Comment on above: Performed By: #### L 100.0500, L500.4050 ####[facility] [address] [place], [address] Platelets (Bld) [#/Vol] 170 10*3/uL Normal 150-450 [facility] Comment on above: Performed By: #### L 100.0500, L500.4050 ####[facility] [address] [place], [address] RBC (Bld) [#/Vol] 2.74 10*6/uL Low 4.2-5.4 [facility] Comment on above: Performed By: #### L 100.0500, L500.4050 ####[facility] [address] [place], [address] RDW SD 53.6 fl High 35.1-43.9 [facility] Comment on above: Performed By: #### L 100.0500, L500.4050 ####[facility] [address] [place], [address] WBC (Bld) [#/Vol] 8.7 10*3/uL Normal 4.4-11.0 [facility] Comment on above: Performed By: #### L 100.0500, L500.4050 ####[facility] [address] [place], [address] Comprehensive Metabolic [facility] 12-17-2023 Albumin [Mass/Vol] 2.7 g/dL Low 3.2-5.0 [facility] Comment on above: Performed By: #### L 100.0500, L500.4050 ####[facility] [address] [place], [address] Albumin/Globulin [Mass ratio] 0.9 {ratio} Normal 0.9-2.4 [facility] Comment on above: Performed By: #### L 100.0500, L500.4050 ####[facility] [address] [place], [address] ALK P 78 U/L Normal 45-117 [facility] Comment on above: Performed By: #### L 100.0500, L500.4050 ####[facility] [address] [place], [address] ALT [Catalytic activity/Vol] 36 U/L Normal 13-56 [facility] Comment on above: Performed By: #### L 100.0500, L500.4050 ####[facility] [address] [place], [address] AST [Catalytic activity/Vol] 19 U/L Normal 15-37 [facility] Comment on above: Performed By: #### L 100.0500, L500.4050 ####[facility] [address] [place], [address] Bilirubin [Mass/Vol] 0.70 mg/dL Normal 0.20-1.00 [facility] Comment on above: Result Comment: For patients on eltrombopag therapy, use of Dimension [place] TBIL is not recommended. Performed By: #### L 100.0500, L500.4050 ####[facility] [address] [place], [address] BUN/CRE 14.0 RATIO Normal 10-20 [facility] Comment on above: Performed By: #### L 100.0500, L500.4050 ####[facility] [address] [place], [address] CA,Total 8.1 mg/dL Low 8.5-10.1 [facility] Comment on above: Performed By: #### L 100.0500, L500.4050 ####[facility] [address] [place], [address] Chloride [Moles/Vol] 102 mmol/L Normal 98-107 [facility] Comment on above: Performed By: #### L 100.0500, L500.4050 ####[facility] [address] [place], [address] CO2 [Moles/Vol] 23.0 mmol/L Normal 21.0-32.0 [facility] Comment on above: Performed By: #### L 100.0500, L500.4050 ####[facility] [address] [place], [address] Creatinine [Mass/Vol] 6.72 mg/dL High 0.55-1.02 [facility] Comment on above: Result Comment: The validity of the calculated GFR GFRAA in patients over70 years has not been determined. Clinical correlation isessential. Performed By: #### L 100.0500, L500.4050 ####[facility] [address] [place], [address] ECRCL 10.45 ml/min Normal [facility] Comment on above: Performed By: #### L 100.0500, L500.4050 ####[facility] [address] [place], [address] EST GFR - AA 8 mL/min Low >60 [facility] Comment on above: Result Comment: Afri can Peruvian GFR Calc Performed By: #### L 100.0500, L500.4050 ####[facility] [address] [place], [address] GAP 12 Normal 5-15 [facility] Comment on above: Performed By: #### L 100.0500, L500.4050 ####[facility] [address] [place], [address] GFR/1.73 sq M.predicted among non-blacks MDRD (S/P/Bld) [Vol rate/Area] 7 mL/min/{1.73_m2} Low >60 [facility] Comment on above: Result Comment: Non- GFR Calc Performed By: #### L 100.0500, L500.4050 ####[facility] [address] [place], [address] Globulin (S) [Mass/Vol] 3.1 g/dL Normal 2.2-4.2 [facility] Comment on above: Performed By: #### L 100.0500, L500.4050 ####[facility] [address] [place], [address] Glucose [Mass/Vol] 134 mg/dL High 74-106 [facility] Comment on above: Result Comment: Fast ing Glucose result greater than or equal to 126 mg/dLsuggests DIABETES MELLITUS per A.D.A. criteria. Performed By: #### L 100.0500, L500.4050 ####[facility] [address] [place], [address] Potassium [Moles/Vol] 4.6 mmol/L Normal 3.5-5.1 [facility] Comment on above: Performed By: #### L 100.0500, L500.4050 ####[facility] [address] [place], [address] Sodium [Moles/Vol] 137 mmol/L Normal 136-145 [facility] Comment on above: Performed By: #### L 100.0500, L500.4050 ####[facility] [address] [place], [address] T PROT 5.8 g/dL Low 6.4-8.2 [facility] Comment on above: Performed By: #### L 100.0500, L500.4050 ####[facility] [address] [place], [address] Urea nitrogen [Mass/Vol] 94 mg/dL High 7-18 [facility] Comment on above: Performed By: #### L 100.0500, L500.4050 ####[facility] [address] [place], [address] Bedside Glucoseon 12-16-2023 FINGERSTICK GLU 288 mg/dL High 74-106 [facility] Comment on above: Result Comment: GALA GEMENT OF PATIENT CARE PER NURSING PROTOCOL Performed By: #### L 501.080 ####[facility] [address] [place], [address] FINGERSTICK GLU > 500 Invalid Interpretation Code 74-106 [facility] Comment on above: Result Comment: GALA GEMENT OF PATIENT CARE PER NURSING PROTOCOL Performed By: #### L 501.080 ####[facility] [address] [place], [address] FINGERSTICK GLU 169 mg/dL High 74-106 [facility] Comment on above: Result Comment: GALA GEMENT OF PATIENT CARE PER NURSING PROTOCOL Performed By: #### L 501.080 ####[facility] [address] [place], [address] FINGERSTICK GLU 189 mg/dL High 74-106 [facility] Comment on above: Result Comment: GALA GEMENT OF PATIENT CARE PER NURSING PROTOCOL Performed By: #### L 501.080 ####[facility] [address] [place], [address] FINGERSTICK GLU 345 mg/dL High 74-106 [facility] Comment on above: Result Comment: GALA GEMENT OF PATIENT CARE PER NURSING PROTOCOL Performed By: #### L 501.080 ####[facility] [address] [place], [address] CBC-Complete Blood Cnt No Di ffon 12-16-2023 Erythrocyte distribution width (RBC) [Ratio] 15.7 % High 11.6-14.6 [facility] Comment on above: Performed By: #### L 500.4050, L100.0500 ####[facility] [address] [place], [address] Hematocrit (Bld) [Volume fraction] 26.7 % Low 37-47 [facility] Comment on above: Performed By: #### L 500.4050, L100.0500 ####[facility] [address] [place], [address] Hemoglobin (Bld) [Mass/Vol] 8.4 g/dL Low 12.0-15.0 [facility] Comment on above: Performed By: #### L 500.4050, L100.0500 ####[facility] [address] [place], [address] MCH (RBC) [Entitic mass] 30.9 pg Normal 27.0-32.0 [facility] Comment on above: Performed By: #### L 500.4050, L100.0500 ####[facility] [address] [place], [address] MCHC (RBC) [Mass/Vol] 31.5 g/dL Low 32-36 [facility] Comment on above: Performed By: #### L 500.4050, L100.0500 ####[facility] [address] [place], [address] MCV (RBC) [Entitic vol] 98.2 fL Normal 81-99 [facility] Comment on above: Performed By: #### L 500.4050, L100.0500 ####[facility] [address] [place], [address] Platelet mean volume (Bld) [Entitic vol] 13.0 fL High 6.2-12.0 [facility] Comment on above: Performed By: #### L 500.4050, L100.0500 ####[facility] [address] [place], [address] Platelets (Bld) [#/Vol] 156 10*3/uL Normal 150-450 [facility] Comment on above: Performed By: #### L 500.4050, L100.0500 ####[facility] [address] [place], [address] RBC (Bld) [#/Vol] 2.72 10*6/uL Low 4.2-5.4 [facility] Comment on above: Performed By: #### L 500.4050, L100.0500 ####[facility] [address] [place], [address] RDW SD 55.3 fl High 35.1-43.9 [facility] Comment on above: Performed By: #### L 500.4050, L100.0500 ####[facility] [address] [place], [address] WBC (Bld) [#/Vol] 9.5 10*3/uL Normal 4.4-11.0 [facility] Comment on above: Performed By: #### L 500.4050, L100.0500 ####[facility] [address] [place], [address] Comprehensive Metabolic Prof azon 12-16-2023 Albumin [Mass/Vol] 2.8 g/dL Low 3.2-5.0 [facility] Comment on above: Performed By: #### L 500.4050, L100.0500 ####[facility] [address] [place], [address] Albumin/Globulin [Mass ratio] 0.9 {ratio} Normal 0.9-2.4 [facility] Comment on above: Performed By: #### L 500.4050, L100.0500 ####[facility] [address] [place], [address] ALK P 81 U/L Normal 45-117 [facility] Comment on above: Performed By: #### L 500.4050, L100.0500 ####[facility] [address] [place], [address] ALT [Catalytic activity/Vol] 42 U/L Normal 13-56 [facility] Comment on above: Performed By: #### L 500.4050, L100.0500 ####[facility] [address] [place], [address] AST [Catalytic activity/Vol] 24 U/L Normal 15-37 [facility] Comment on above: Performed By: #### L 500.4050, L100.0500 ####[facility] [address] [place], [address] Bilirubin [Mass/Vol] 0.70 mg/dL Normal 0.20-1.00 [facility] Comment on above: Result Comment: For patients on eltrombopag therapy, use of Dimension [place] TBIL is not recommended. Performed By: #### L 500.4050, L100.0500 ####[facility] [address] [place], [address] BUN/CRE 13.4 RATIO Normal 10-20 [facility] Comment on above: Performed By: #### L 500.4050, L100.0500 ####[facility] [address] [place], [address] CA,Total 8.6 mg/dL Normal 8.5-10.1 [facility] Comment on above: Performed By: #### L 500.4050, L100.0500 ####[facility] [address] [place], [address] Chloride [Moles/Vol] 102 mmol/L Normal 98-107 [facility] Comment on above: Performed By: #### L 500.4050, L100.0500 ####[facility] [address] [place], [address] CO2 [Moles/Vol] 25.0 mmol/L Normal 21.0-32.0 [facility] Comment on above: Performed By: #### L 500.4050, L100.0500 ####[facility] [address] [place], [address] Creatinine [Mass/Vol] 5.73 mg/dL High 0.55-1.02 [facility] Comment on above: Result Comment: The validity of the calculated GFR GFRAA in patients over70 years has not been determined. Clinical correlation isessential. Performed By: #### L 500.4050, L100.0500 ####[facility] [address] [place], [address] ECRCL 12.26 ml/min Normal [facility] Comment on above: Performed By: #### L 500.4050, L100.0500 ####[facility] [address] [place], [address] EST GFR - AA 10 mL/min Low >60 [facility] Comment on above: Result Comment: Afri can Peruvian GFR Calc Performed By: #### L 500.4050, L100.0500 ####[facility] [address] [place], [address] GAP 8 Normal 5-15 [facility] Comment on above: Performed By: #### L 500.4050, L100.0500 ####[facility] [address] [place], [address] GFR/1.73 sq M.predicted among non-blacks MDRD (S/P/Bld) [Vol rate/Area] 8 mL/min/{1.73_m2} Low >60 [facility] Comment on above: Result Comment: Non- GFR Calc Performed By: #### L 500.4050, L100.0500 ####[facility] [address] [place], [address] Globulin (S) [Mass/Vol] 3.2 g/dL Normal 2.2-4.2 [facility] Comment on above: Performed By: #### L 500.4050, L100.0500 ####[facility] [address] [place], [address] Glucose [Mass/Vol] 212 mg/dL High 74-106 [facility] Comment on above: Result Comment: Gluc ose result greater than or equal to 200 mg/dLsuggests DIABETES MELLITUS per A.D.A. criteria. Performed By: #### L 500.4050, L100.0500 ####[facility] [address] [place], [address] Potassium [Moles/Vol] 5.3 mmol/L High 3.5-5.1 [facility] Comment on above: Performed By: #### L 500.4050, L100.0500 ####[facility] [address] [place], [address] Sodium [Moles/Vol] 135 mmol/L Low 136-145 [facility] Comment on above: Performed By: #### L 500.4050, L100.0500 ####[facility] [address] [place], [address] T PROT 6.0 g/dL Low 6.4-8.2 [facility] Comment on above: Performed By: #### L 500.4050, L100.0500 ####[facility] [address] [place], [address] Urea nitrogen [Mass/Vol] 77 mg/dL High 10-14 [facility] Comment on above: Performed By: #### L 500.4050, L100.0500 ####[facility] [address] [place], [address] Modified Barium Swallow Stud yon 12-16-2023 Modified Barium Swallow Study Normal [facility] Bedside Glucoseon 12-15-2023 FINGERSTICK GLU 432 mg/dL High 74-106 [facility] Comment on above: Result Comment: GALA GEMENT OF PATIENT CARE PER NURSING PROTOCOL Performed By: #### L 501.080 ####[facility] [address] [place], [address] FINGERSTICK GLU 433 mg/dL High 74-106 [facility] Comment on above: Result Comment: GALA GEMENT OF PATIENT CARE PER NURSING PROTOCOL Performed By: #### L 501.080 ####[facility] [address] [place], [address] FINGERSTICK GLU 236 mg/dL High 74-106 [facility] Comment on above: Result Comment: GALA GEMENT OF PATIENT CARE PER NURSING PROTOCOL Performed By: #### L 501.080 ####[facility] [address] [place], [address] FINGERSTICK GLU 190 mg/dL High 74-106 [facility] Comment on above: Result Comment: GALA GEMENT OF PATIENT CARE PER NURSING PROTOCOL Performed By: #### L 501.080 ####[facility] [address] [place], [address] CBC W/Diff, Automatedon 11-28 Absolute Lymph 0.51 X10 3/uL Low 0.83-4.51 [facility] Comment on above: Performed By: #### L 501.9985, L500.4050, L100.0100 ####[facility] [address] [place], [address] Absolute Neut 10.6 X10 3/uL High 2.0-7.7 [facility] Comment on above: Performed By: #### L 501.9985, L500.4050, L100.0100 ####[facility] [address] [place], [address] Basophils/100 WBC (Bld) 0.1 % Normal 0-1 [facility] Comment on above: Performed By: #### L 501.9985, L500.4050, L100.0100 ####[facility] [address] [place], [address] Eosinophils/100 WBC (Bld) 0.0 % Normal 0-5 [facility] Comment on above: Performed By: #### L 501.9985, L500.4050, L100.0100 ####[facility] [address] [place], [address] Erythrocyte distribution width (RBC) [Ratio] 15.1 % High 11.6-14.6 [facility] Comment on above: Performed By: #### L 501.9985, L500.4050, L100.0100 ####[facility] [address] [place], [address] Hematocrit (Bld) [Volume fraction] 29.6 % Low 37-47 [facility] Comment on above: Performed By: #### L 501.9985, L500.4050, L100.0100 ####[facility] [address] [place], [address] Hemoglobin (Bld) [Mass/Vol] 9.3 g/dL Low 12.0-15.0 [facility] Comment on above: Performed By: #### L 501.9985, L500.4050, L100.0100 ####[facility] [address] [place], [address] IG% 0.900 Normal 0.0-0.9 [facility] Comment on above: Result Comment: IG% - Immature Granulocytes (promyelocytes, myelocytes andmetamyelocytes) > 1% indicates that a LEFT SHIFT is Present. Performed By: #### L 501.9985, L500.4050, L100.0100 ####[facility] [address] [place], [address] Lymphocytes/100 WBC (Bld) 4.4 % Low 19-41 [facility] Comment on above: Performed By: #### L 501.9985, L500.4050, L100.0100 ####[facility] [address] [place], [address] MCH (RBC) [Entitic mass] 30.9 pg Normal 27.0-32.0 [facility] Comment on above: Performed By: #### L 501.9985, L500.4050, L100.0100 ####[facility] [address] [place], [address] MCHC (RBC) [Mass/Vol] 31.4 g/dL Low 32-36 [facility] Comment on above: Performed By: #### L 501.9985, L500.4050, L100.0100 ####[facility] [address] [place], [address] MCV (RBC) [Entitic vol] 98.3 fL Normal 81-99 [facility] Comment on above: Performed By: #### L 501.9985, L500.4050, L100.0100 ####[facility] [address] [place], [address] Monocytes/100 WBC (Bld) 3.7 % Normal 0-10 [facility] Comment on above: Performed By: #### L 501.9985, L500.4050, L100.0100 ####[facility] [address] [place], [address] Neutrophils/100 WBC (Bld) 90.9 % High 47-70 [facility] Comment on above: Performed By: #### L 501.9985, L500.4050, L100.0100 ####[facility] [address] [place], [address] Nucleated RBC (Bld) [#/Vol] 0.2 10*3/uL Normal 0-5 [facility] Comment on above: Performed By: #### L 501.9985, L500.4050, L100.0100 ####[facility] [address] [place], [address] Platelet mean volume (Bld) [Entitic vol] 12.8 fL High 6.2-12.0 [facility] Comment on above: Performed By: #### L 501.9985, L500.4050, L100.0100 ####[facility] [address] [place], [address] Platelets (Bld) [#/Vol] 161 10*3/uL Normal 150-450 [facility] Comment on above: Performed By: #### L 501.9985, L500.4050, L100.0100 ####[facility] [address] [place], [address] RBC (Bld) [#/Vol] 3.01 10*6/uL Low 4.2-5.4 [facility] Comment on above: Performed By: #### L 501.9985, L500.4050, L100.0100 ####[facility] [address] [place], [address] RDW SD 54.2 fl High 35.1-43.9 [facility] Comment on above: Performed By: #### L 501.9985, L500.4050, L100.0100 ####[facility] [address] [place], [address] WBC (Bld) [#/Vol] 11.7 10*3/uL High 4.4-11.0 [facility] Comment on above: Performed By: #### L 501.9985, L500.4050, L100.0100 ####[facility] [address] [place], [address] Comprehensive Metabolic Prof ilon 12-15-2023 Albumin [Mass/Vol] 2.8 g/dL Low 3.2-5.0 [facility] Comment on above: Performed By: #### L 501.9985, L500.4050, L100.0100 ####[facility] [address] [place], [address] Albumin/Globulin [Mass ratio] 0.9 {ratio} Normal 0.9-2.4 [facility] Comment on above: Performed By: #### L 501.9985, L500.4050, L100.0100 ####[facility] [address] [place], [address] ALK P 83 U/L Normal 45-117 [facility] Comment on above: Performed By: #### L 501.9985, L500.4050, L100.0100 ####[facility] [address] [place], [address] ALT [Catalytic activity/Vol] 52 U/L Normal 13-56 [facility] Comment on above: Performed By: #### L 501.9985, L500.4050, L100.0100 ####[facility] [address] [place], [address] AST [Catalytic activity/Vol] 32 U/L Normal 15-37 [facility] Comment on above: Performed By: #### L 501.9985, L500.4050, L100.0100 ####[facility] [address] [place], [address] Bilirubin [Mass/Vol] 0.90 mg/dL Normal 0.20-1.00 [facility] Comment on above: Result Comment: For patients on eltrombopag therapy, use of Dimension [place] TBIL is not recommended. Performed By: #### L 501.9985, L500.4050, L100.0100 ####[facility] [address] [place], [address] BUN/CRE 11.6 RATIO Normal 10-20 [facility] Comment on above: Performed By: #### L 501.9985, L500.4050, L100.0100 ####[facility] [address] [place], [address] CA,Total 8.7 mg/dL Normal 8.5-10.1 [facility] Comment on above: Performed By: #### L 501.9985, L500.4050, L100.0100 ####[facility] [address] [place], [address] Chloride [Moles/Vol] 102 mmol/L Normal 98-107 [facility] Comment on above: Performed By: #### L 501.9985, L500.4050, L100.0100 ####[facility] [address] [place], [address] CO2 [Moles/Vol] 24.0 mmol/L Normal 21.0-32.0 [facility] Comment on above: Performed By: #### L 501.9985, L500.4050, L100.0100 ####[facility] [address] [place], [address] Creatinine [Mass/Vol] 6.64 mg/dL High 0.55-1.02 [facility] Comment on above: Result Comment: The validity of the calculated GFR GFRAA in patients over70 years has not been determined. Clinical correlation isessential. Performed By: #### L 501.9985, L500.4050, L100.0100 ####[facility] [address] [place], [address] ECRCL 10.35 ml/min Normal [facility] Comment on above: Performed By: #### L 501.9985, L500.4050, L100.0100 ####[facility] [address] [place], [address] EST GFR - AA 8 mL/min Low >60 [facility] Comment on above: Result Comment: Afri can Peruvian GFR Calc Performed By: #### L 501.9985, L500.4050, L100.0100 ####[facility] [address] [place], [address] GAP 11 Normal 5-15 [facility] Comment on above: Performed By: #### L 501.9985, L500.4050, L100.0100 ####[facility] [address] [place], [address] GFR/1.73 sq M.predicted among non-blacks MDRD (S/P/Bld) [Vol rate/Area] 7 mL/min/{1.73_m2} Low >60 [facility] Comment on above: Result Comment: Non- GFR Calc Performed By: #### L 501.9985, L500.4050, L100.0100 ####[facility] [address] [place], [address] Globulin (S) [Mass/Vol] 3.2 g/dL Normal 2.2-4.2 [facility] Comment on above: Performed By: #### L 501.9985, L500.4050, L100.0100 ####[facility] [address] [place], [address] Glucose [Mass/Vol] 198 mg/dL High 74-106 [facility] Comment on above: Result Comment: Fast ing Glucose result greater than or equal to 126 mg/dLsuggests DIABETES MELLITUS per A.D.A. criteria. Performed By: #### L 501.9985, L500.4050, L100.0100 ####[facility] [address] [place], [address] Potassium [Moles/Vol] 5.5 mmol/L High 3.5-5.1 [facility] Comment on above: Performed By: #### L 501.9985, L500.4050, L100.0100 ####[facility] [address] [place], [address] Sodium [Moles/Vol] 137 mmol/L Normal 136-145 [facility] Comment on above: Performed By: #### L 501.9985, L500.4050, L100.0100 ####[facility] [address] [place], [address] T PROT 6.0 g/dL Low 6.4-8.2 [facility] Comment on above: Performed By: #### L 501.9985, L500.4050, L100.0100 ####[facility] [address] [place], [address] Urea nitrogen [Mass/Vol] 77 mg/dL High 7-18 [facility] Comment on above: Performed By: #### L 501.9985, L500.4050, L100.0100 ####[facility] [address] [place], [address] Hemoglobin A1con 12-15-2023 HbA1c (Bld) [Mass fraction] 7.1 % High 3.8-5.6 [facility] Comment on above: Result Comment: Norm al < 5.7 % Prediabetic 5.7 - 6.4 % Diabetic >or= 6.5 % Please note range changes. Performed By: #### L 501.9985, L500.4050, L100.0100 ####[facility] [address] [place], [address] Legionella Antigen Urineon 0 12-15-2023 LEGU Normal [facility] Comment on above: Performed By: #### M 300.4500, M300.4600 ####[facility] [address] [place], [address] M8200.1000on 12-15-2023 M8200.1000 Negative Normal [facility] Comment on above: Performed By: #### M 8200.1000 ####[facility] [address] [place], [address] Strep pneumoniae Antig(UR,CS F)on 12-15-2023 STPAG Normal [facility] Comment on above: Performed By: #### M 300.4500, M300.4600 ####[facility] [address] [place], [address] Vancomycin, Random Levelon 0 12-15-2023 VANCO, RANDOM 25.7 ug/mL High 0.0-15.0 [facility] Comment on above: Result Comment: VANC OMYCIN STANDARD DRUG THERAPY: CRITICAL VALUE IS > 15.0 mg/LVANCOMYCIN HIGH INTENSITY THERAPY: CRITICAL VALUE IS > 20.0 mg/LPLEASE CONTACT PHARMACY SERVICES (#1138) FOR INTERPRETATIONOF RESULTS. THIS RESULT DOES NOT REPRESENT A PEAK OR TROUGHLEVEL FOR THIS DRUG. Performed By: #### L 501.8850 ####[facility] [address] [place], [address] Alkaline Phosphataseon 12-13 ALK P 107 U/L Normal 45-117 [facility] Comment on above: Performed By: #### L 501.4305 ####[facility] [address] [place], [address] Basic Metabolic Profile (BMP )on 12-14-2023 BUN/CRE 10.2 RATIO Normal 10-20 [facility] Comment on above: Order Comment: 'TROP ' Serial specimen #1, #2 or #3: 1 Performed By: #### L 500.3400, L501.4020, L100.0100, L501.2450, L500.2500 ####[facility] [address] [place], [address] CA,Total 8.7 mg/dL Normal 8.5-10.1 [facility] Comment on above: Order Comment: 'TROP ' Serial specimen #1, #2 or #3: 1 Performed By: #### L 500.3400, L501.4020, L100.0100, L501.2450, L500.2500 ####[facility] [address] [place], [address] Chloride [Moles/Vol] 101 mmol/L Normal 98-107 [facility] Comment on above: Order Comment: 'TROP ' Serial specimen #1, #2 or #3: 1 Performed By: #### L 500.3400, L501.4020, L100.0100, L501.2450, L500.2500 ####[facility] [address] [place], [address] CO2 [Moles/Vol] 27.0 mmol/L Normal 21.0-32.0 [facility] Comment on above: Order Comment: 'TROP ' Serial specimen #1, #2 or #3: 1 Performed By: #### L 500.3400, L501.4020, L100.0100, L501.2450, L500.2500 ####[facility] [address] [place], [address] Creatinine [Mass/Vol] 5.67 mg/dL High 0.55-1.02 [facility] Comment on above: Order Comment: 'TROP ' Serial specimen #1, #2 or #3: 1 Result Comment: The validity of the calculated GFR GFRAA in patients over70 years has not been determined. Clinical correlation isessential. Performed By: #### L 500.3400, L501.4020, L100.0100, L501.2450, L500.2500 ####[facility] [address] [place], [address] ECRCL 12.79 ml/min Normal [facility] Comment on above: Order Comment: 'TROP ' Serial specimen #1, #2 or #3: 1 Performed By: #### L 500.3400, L501.4020, L100.0100, L501.2450, L500.2500 ####[facility] [address] [place], [address] EST GFR - AA 10 mL/min Low >60 [facility] Comment on above: Order Comment: 'TROP ' Serial specimen #1, #2 or #3: 1 Result Comment: Afri can Peruvian GFR Calc Performed By: #### L 500.3400, L501.4020, L100.0100, L501.2450, L500.2500 ####[facility] [address] [place], [address] GAP 8 Normal 5-15 [facility] Comment on above: Order Comment: 'TROP ' Serial specimen #1, #2 or #3: 1 Performed By: #### L 500.3400, L501.4020, L100.0100, L501.2450, L500.2500 ####[facility] [address] [place], [address] GFR/1.73 sq M.predicted among non-blacks MDRD (S/P/Bld) [Vol rate/Area] 8 mL/min/{1.73_m2} Low >60 [facility] Comment on above: Order Comment: 'TROP ' Serial specimen #1, #2 or #3: 1 Result Comment: Non- GFR Calc Performed By: #### L 500.3400, L501.4020, L100.0100, L501.2450, L500.2500 ####[facility] [address] [place], [address] Glucose [Mass/Vol] 285 mg/dL High 74-106 [facility] Comment on above: Order Comment: 'TROP ' Serial specimen #1, #2 or #3: 1 Result Comment: Gluc ose result greater than or equal to 200 mg/dLsuggests DIABETES MELLITUS per A.D.A. criteria. Performed By: #### L 500.3400, L501.4020, L100.0100, L501.2450, L500.2500 ####[facility] [address] [place], [address] Potassium [Moles/Vol] 5.2 mmol/L High 3.5-5.1 [facility] Comment on above: Order Comment: 'TROP ' Serial specimen #1, #2 or #3: 1 Performed By: #### L 500.3400, L501.4020, L100.0100, L501.2450, L500.2500 ####[facility] [address] [place], [address] Sodium [Moles/Vol] 136 mmol/L Normal 136-145 [facility] Comment on above: Order Comment: 'TROP ' Serial specimen #1, #2 or #3: 1 Performed By: #### L 500.3400, L501.4020, L100.0100, L501.2450, L500.2500 ####[facility] [address] [place], [address] Urea nitrogen [Mass/Vol] 58 mg/dL High 7-18 [facility] Comment on above: Order Comment: 'TROP ' Serial specimen #1, #2 or #3: 1 Performed By: #### L 500.3400, L501.4020, L100.0100, L501.2450, L500.2500 ####[facility] [address] [place], [address] Bedside Glucoseon 12-14-2023 FINGERSTICK GLU 139 mg/dL High 74-106 [facility] Comment on above: Result Comment: GALA GEMENT OF PATIENT CARE PER NURSING PROTOCOL Performed By: #### L 501.080 ####[facility] [address] [place], [address] FINGERSTICK GLU 231 mg/dL High 74-106 [facility] Comment on above: Result Comment: GALA GEMENT OF PATIENT CARE PER NURSING PROTOCOL Performed By: #### L 501.080 ####[facility] [address] [place], [address] FINGERSTICK GLU 317 mg/dL High 74-106 [facility] Comment on above: Result Comment: GALA GEMENT OF PATIENT CARE PER NURSING PROTOCOL Performed By: #### L 501.080 ####[facility] [address] [place], [address] Blood Gases by [facility] 024 JACKIE TEST Positive Normal [facility] Comment on above: Performed By: #### L 9000.0800 ####[facility] [address] [place], [address] Base excess Calc (Bld) [Moles/Vol] 1 mmol/L Normal -2 to +2 [facility] Comment on above: Performed By: #### L 9000.0800 ####[facility] [address] [place], [address] Blood Gas Type ART Normal [facility] Comment on above: Performed By: #### L 9000.0800 ####[facility] [address] [place], [address] CO2 [Moles/Vol] 27 mmol/L Normal [facility] Comment on above: Performed By: #### L 9000.0800 ####[facility] [address] [place], [address] FI02 4.0 Normal [facility] Comment on above: Performed By: #### L 0.0800 ####[facility] [address] [place], [address] HCO3 (Bld) [Moles/Vol] 26.0 mmol/L Normal 22-26 [facility] Comment on above: Performed By: #### L 8999.0800 ####[facility] [address] [place], [address] Mode Not entered Normal [facility] Comment on above: Performed By: #### L 0.0800 ####[facility] [address] [place], [address] O2 Delivery Dev Cannula Normal [facility] Comment on above: Performed By: #### L 0.08 ####[facility] [address] [place], [address] pCO2 42.3 mmHg Normal 35-45 [facility] Comment on above: Performed By: #### L 8999.08 ####[facility] [address] [place], [address] pH (Bld) 7.40 [pH] Normal 7.35-7.45 [facility] Comment on above: Performed By: #### L 8999.0800 ####[facility] [address] [place], [address] PO2 61 mmHG Low 75-100 [facility] Comment on above: Performed By: #### L 8999.0800 ####[facility] [address] [place], [address] SITE L Radial Normal [facility] Comment on above: Performed By: #### L 8999.0800 ####[facility] [address] [place], [address] SO2 91 Low 95-99 [facility] Comment on above: Performed By: #### L 0.0800 ####[facility] [address] [place], [address] CBC W/Diff, Automatedon 09-1 -2023 Absolute Lymph 0.64 X10 3/uL Low 0.83-4.51 [facility] Comment on above: Performed By: #### L 500.3400, L501.4020, L100.0100, L501.2450, L500.2500 ####[facility] [address] [place], [address] Absolute Neut 9.6 X10 3/uL High 2.0-7.7 [facility] Comment on above: Performed By: #### L 500.3400, L501.4020, L100.0100, L501.2450, L500.2500 ####[facility] [address] [place], [address] Basophils/100 WBC (Bld) 0.4 % Normal 0-1 [facility] Comment on above: Performed By: #### L 500.3400, L501.4020, L100.0100, L501.2450, L500.2500 ####[facility] [address] [place], [address] Eosinophils/100 WBC (Bld) 1.4 % Normal 0-5 [facility] Comment on above: Performed By: #### L 500.3400, L501.4020, L100.0100, L501.2450, L500.2500 ####[facility] [address] [place], [address] Erythrocyte distribution width (RBC) [Ratio] 15.1 % High 11.6-14.6 [facility] Comment on above: Performed By: #### L 500.3400, L501.4020, L100.0100, L501.2450, L500.2500 ####[facility] [address] [place], [address] Hematocrit (Bld) [Volume fraction] 32.5 % Low 37-47 [facility] Comment on above: Performed By: #### L 500.3400, L501.4020, L100.0100, L501.2450, L500.2500 ####[facility] [address] [place], [address] Hemoglobin (Bld) [Mass/Vol] 10.0 g/dL Low 12.0-15.0 [facility] Comment on above: Performed By: #### L 500.3400, L501.4020, L100.0100, L501.2450, L500.2500 ####[facility] [address] [place], [address] IG% 1.300 High 0.0-0.9 [facility] Comment on above: Result Comment: IG% - Immature Granulocytes (promyelocytes, myelocytes andmetamyelocytes) > 1% indicates that a LEFT SHIFT is Present. Performed By: #### L 500.3400, L501.4020, L100.0100, L501.2450, L500.2500 ####[facility] [address] [place], [address] Lymphocytes/100 WBC (Bld) 5.8 % Low 19-41 [facility] Comment on above: Performed By: #### L 500.3400, L501.4020, L100.0100, L501.2450, L500.2500 ####[facility] [address] [place], [address] MCH (RBC) [Entitic mass] 30.4 pg Normal 27.0-32.0 [facility] Comment on above: Performed By: #### L 500.3400, L501.4020, L100.0100, L501.2450, L500.2500 ####[facility] [address] [place], [address] MCHC (RBC) [Mass/Vol] 30.8 g/dL Low 32-36 [facility] Comment on above: Performed By: #### L 500.3400, L501.4020, L100.0100, L501.2450, L500.2500 ####[facility] [address] [place], [address] MCV (RBC) [Entitic vol] 98.8 fL Normal 81-99 [facility] Comment on above: Performed By: #### L 500.3400, L501.4020, L100.0100, L501.2450, L500.2500 ####[facility] [address] [place], [address] Monocytes/100 WBC (Bld) 4.7 % Normal 0-10 [facility] Comment on above: Performed By: #### L 500.3400, L501.4020, L100.0100, L501.2450, L500.2500 ####[facility] [address] [place], [address] Neutrophils/100 WBC (Bld) 86.4 % High 47-70 [facility] Comment on above: Performed By: #### L 500.3400, L501.4020, L100.0100, L501.2450, L500.2500 ####[facility] [address] [place], [address] Nucleated RBC (Bld) [#/Vol] 0 10*3/uL Normal 0-5 [facility] Comment on above: Performed By: #### L 500.3400, L501.4020, L100.0100, L501.2450, L500.2500 ####[facility] [address] [place], [address] Platelet mean volume (Bld) [Entitic vol] 12.7 fL High 6.2-12.0 [facility] Comment on above: Performed By: #### L 500.3400, L501.4020, L100.0100, L501.2450, L500.2500 ####[facility] [address] [place], [address] Platelets (Bld) [#/Vol] 146 10*3/uL Low 150-450 [facility] Comment on above: Performed By: #### L 500.3400, L501.4020, L100.0100, L501.2450, L500.2500 ####[facility] [address] [place], [address] RBC (Bld) [#/Vol] 3.29 10*6/uL Low 4.2-5.4 [facility] Comment on above: Performed By: #### L 500.3400, L501.4020, L100.0100, L501.2450, L500.2500 ####[facility] [address] [place], [address] RDW SD 54.2 fl High 35.1-43.9 [facility] Comment on above: Performed By: #### L 500.3400, L501.4020, L100.0100, L501.2450, L500.2500 ####[facility] [address] [place], [address] WBC (Bld) [#/Vol] 11.1 10*3/uL High 4.4-11.0 [facility] Comment on above: Performed By: #### L 500.3400, L501.4020, L100.0100, L501.2450, L500.2500 ####[facility] [address] [place], [address] Chest 1 View (Portable)on Chest 1 View (Portable) Normal [facility] Consultation - Intensiviston 12-14-2023 Consultation - Sterilisation Technician Normal [facility] Consultation - Nephrologyon 12-14-2023 Consultation - Nephrology Normal [facility] Emergency Department Summary on 12-14-2023 Emergency Department Summary Normal [facility] H AND P Exam - Hospitaliston 12-14-2023 H&P Exam - Hospitalist Normal [facility] L501.4020on 12-14-2023 TROPONIN-I HS 40 pg/mL Normal 3.0-54.0 [facility] Comment on above: Order Comment: 'TROP ' Serial specimen #1, #2 or #3: 1 Result Comment: Kaity olmedo Note: New Test Units and Gender Specific Reference Ranges. For more information see Policy Stat Procedure [place] High Sensitivity Troponin (TNIH) and attachments. Performed By: #### L 500.3400, L501.4020, L100.0100, L501.2450, L500.2500 ####[facility] [address] [place], [address] Lactic Acidon 12-14-2023 Lactate [Moles/Vol] 0.8 mmol/L Normal 0.4-1.9 [facility] Comment on above: Order Comment: Y Performed By: #### L 503.6005, M200.1000 ####[facility] [address] [place], [address] Lipaseon 12-14-2023 Lipase [Catalytic activity/Vol] 48 U/L Normal 13-75 [facility] Comment on above: Order Comment: 'TROP ' Serial specimen #1, #2 or #3: 1 Result Comment: Kaity olmedo note:LIPASE revised reference range effective 22.New Lipase methodology. Expected to produce lower valuesthan the previous assay method.NEW Reference Range: 13 - 75 U/L Performed By: #### L 500.3400, L501.4020, L100.0100, L501.2450, L500.2500 ####[facility] [address] [place], [address] Liver Profileon 12-14-2023 Albumin [Mass/Vol] 3.3 g/dL Normal 3.2-5.0 [facility] Comment on above: Order Comment: 'TROP ' Serial specimen #1, #2 or #3: 1 Performed By: #### L 500.3400, L501.4020, L100.0100, L501.2450, L500.2500 ####[facility] [address] [place], [address] ALK P 105 U/L Normal 45-117 [facility] Comment on above: Order Comment: 'TROP ' Serial specimen #1, #2 or #3: 1 Performed By: #### L 500.3400, L501.4020, L100.0100, L501.2450, L500.2500 ####[facility] [address] [place], [address] ALT [Catalytic activity/Vol] 75 U/L High 13-56 [facility] Comment on above: Order Comment: 'TROP ' Serial specimen #1, #2 or #3: 1 Performed By: #### L 500.3400, L501.4020, L100.0100, L501.2450, L500.2500 ####[facility] [address] [place], [address] AST [Catalytic activity/Vol] 54 U/L High 15-37 [facility] Comment on above: Order Comment: 'TROP ' Serial specimen #1, #2 or #3: 1 Performed By: #### L 500.3400, L501.4020, L100.0100, L501.2450, L500.2500 ####[facility] [address] [place], [address] Bilirubin [Mass/Vol] 0.80 mg/dL Normal 0.20-1.00 [facility] Comment on above: Order Comment: 'TROP ' Serial specimen #1, #2 or #3: 1 Result Comment: For patients on eltrombopag therapy, use of Dimension [place] TBIL is not recommended. Performed By: #### L 500.3400, L501.4020, L100.0100, L501.2450, L500.2500 ####[facility] [address] [place], [address] Bilirubin.direct [Mass/Vol] 0.24 mg/dL Normal 0.00-0.30 [facility] Comment on above: Order Comment: 'TROP ' Serial specimen #1, #2 or #3: 1 Performed By: #### L 500.3400, L501.4020, L100.0100, L501.2450, L500.2500 ####[facility] [address] [place], [address] Globulin (S) [Mass/Vol] 3.6 g/dL Normal 2.2-4.2 [facility] Comment on above: Order Comment: 'TROP ' Serial specimen #1, #2 or #3: 1 Performed By: #### L 500.3400, L501.4020, L100.0100, L501.2450, L500.2500 ####[facility] [address] [place], [address] T PROT 6.9 g/dL Normal 6.4-8.2 [facility] Comment on above: Order Comment: 'TROP ' Serial specimen #1, #2 or #3: 1 Performed By: #### L 500.3400, L501.4020, L100.0100, L501.2450, L500.2500 ####[facility] [address] [place], [address] M100.678on 12-14-2023 M100.678 Normal [facility] Comment on above: Performed By: #### M 100.678 ####[facility] [address] [place], [address] Magnesiumon 12-14-2023 Magnesium [Mass/Vol] 2.2 mg/dL Normal 1.6-2.6 [facility] Comment on above: Performed By: #### L 501.5200 ####[facility] [address] [place], [address] Procedure Reporton Procedure Report Normal [facility] CBC W/Diff, Automatedon 08- Absolute Neut Normal 2.0-7.7 [facility] Comment on above: Result Comment: Canc elled via OM: Order cancelled - Patient discharged Performed By: #### L 500.4050, L100.0100 ####[facility] [address] [place], [address] HCT Normal 37-47 [facility] Comment on above: Result Comment: Canc elled via OM: Order cancelled - Patient discharged Performed By: #### L 500.4050, L100.0100 ####[facility] [address] [place], [address] HGB Normal 12.0-15.0 [facility] Comment on above: Result Comment: Canc elled via OM: Order cancelled - Patient discharged Performed By: #### L 500.4050, L100.0100 ####[facility] [address] [place], [address] MCH Normal 27.0-32.0 [facility] Comment on above: Result Comment: Canc elled via OM: Order cancelled - Patient discharged Performed By: #### L 500.4050, L100.0100 ####[facility] [address] [place], [address] MCHC Normal 32-36 [facility] Comment on above: Result Comment: Canc elled via OM: Order cancelled - Patient discharged Performed By: #### L 500.4050, L100.0100 ####[facility] [address] [place], [address] MCV Normal 81-99 [facility] Comment on above: Result Comment: Canc elled via OM: Order cancelled - Patient discharged Performed By: #### L 500.4050, L100.0100 ####[facility] [address] [place], [address] NEUT% Normal 47-70 [facility] Comment on above: Result Comment: Canc elled via OM: Order cancelled - Patient discharged Performed By: #### L 500.4050, L100.0100 ####[facility] [address] [place], [address] PLT Normal 150-450 [facility] Comment on above: Result Comment: Canc elled via OM: Order cancelled - Patient discharged Performed By: #### L 500.4050, L100.0100 ####[facility] [address] [place], [address] RBC Normal 4.2-5.4 [facility] Comment on above: Result Comment: Canc elled via OM: Order cancelled - Patient discharged Performed By: #### L 500.4050, L100.0100 ####[facility] [address] [place], [address] RDW CV Normal 11.6-14.6 [facility] Comment on above: Result Comment: Canc elled via OM: Order cancelled - Patient discharged Performed By: #### L 500.4050, L100.0100 ####[facility] [address] [place], [address] RDW SD Normal 35.1-43.9 [facility] Comment on above: Result Comment: Canc elled via OM: Order cancelled - Patient discharged Performed By: #### L 500.4050, L100.0100 ####[facility] [address] [place], [address] WBC Normal 4.4-11.0 [facility] Comment on above: Result Comment: Canc elled via OM: Order cancelled - Patient discharged Performed By: #### L 500.4050, L100.0100 ####[facility] [address] [place], [address] Comprehensive Metabolic Prof ilon 11-24-2023 ALB Normal 3.2-5.0 [facility] Comment on above: Result Comment: Canc elled via OM: Order cancelled - Patient discharged Performed By: #### L 500.4050, L100.0100 ####[facility] [address] [place], [address] ALK P Normal 45-117 [facility] Comment on above: Result Comment: Canc elled via OM: Order cancelled - Patient discharged Performed By: #### L 500.4050, L100.0100 ####[facility] [address] [place], [address] ALT Normal 13-56 [facility] Comment on above: Result Comment: Canc elled via OM: Order cancelled - Patient discharged Performed By: #### L 500.4050, L100.0100 ####[facility] [address] [place], [address] AST Normal 15-37 [facility] Comment on above: Result Comment: Canc elled via OM: Order cancelled - Patient discharged Performed By: #### L 500.4050, L100.0100 ####[facility] [address] [place], [address] BUN Normal 7-18 [facility] Comment on above: Result Comment: Canc elled via OM: Order cancelled - Patient discharged Performed By: #### L 500.4050, L100.0100 ####[facility] [address] [place], [address] BUN/CRE Normal 10-20 [facility] Comment on above: Result Comment: Canc elled via OM: Order cancelled - Patient discharged Performed By: #### L 500.4050, L100.0100 ####[facility] [address] [place], [address] CA,Total Normal 8.5-10.1 [facility] Comment on above: Result Comment: Canc elled via OM: Order cancelled - Patient discharged Performed By: #### L 500.4050, L100.0100 ####[facility] [address] [place], [address] CL Normal 98-107 [facility] Comment on above: Result Comment: Canc elled via OM: Order cancelled - Patient discharged Performed By: #### L 500.4050, L100.0100 ####[facility] [address] [place], [address] CO2 Normal 21.0-32.0 [facility] Comment on above: Result Comment: Canc elled via OM: Order cancelled - Patient discharged Performed By: #### L 500.4050, L100.0100 ####[facility] [address] [place], [address] CREAT,SERUM Normal 0.55-1.02 [facility] Comment on above: Result Comment: Canc elled via OM: Order cancelled - Patient discharged Performed By: #### L 500.4050, L100.0100 ####[facility] [address] [place], [address] EST GFR Normal >60 [facility] Comment on above: Result Comment: Canc elled via OM: Order cancelled - Patient discharged Performed By: #### L 500.4050, L100.0100 ####[facility] [address] [place], [address] EST GFR - AA Normal >60 [facility] Comment on above: Result Comment: Canc elled via OM: Order cancelled - Patient discharged Performed By: #### L 500.4050, L100.0100 ####[facility] [address] [place], [address] GAP Normal 5-15 [facility] Comment on above: Result Comment: Canc elled via OM: Order cancelled - Patient discharged Performed By: #### L 500.4050, L100.0100 ####[facility] [address] [place], [address] GLU Normal 74-106 [facility] Comment on above: Result Comment: Canc elled via OM: Order cancelled - Patient discharged Performed By: #### L 500.4050, L100.0100 ####[facility] [address] [place], [address] Potassium Normal 3.5-5.1 [facility] Comment on above: Result Comment: Canc elled via OM: Order cancelled - Patient discharged Performed By: #### L 500.4050, L100.0100 ####[facility] [address] [place], [address] T BILI Normal 0.20-1.00 [facility] Comment on above: Result Comment: Canc elled via OM: Order cancelled - Patient discharged Performed By: #### L 500.4050, L100.0100 ####[facility] [address] [place], [address] T PROT Normal 6.4-8.2 [facility] Comment on above: Result Comment: Canc elled via OM: Order cancelled - Patient discharged Performed By: #### L 500.4050, L100.0100 ####[facility] [address] [place], [address] Comprehensive Metabolic Profil Normal 136-145 [facility] Comment on above: Result Comment: Canc elled via OM: Order cancelled - Patient discharged Performed By: #### L 500.4050, L100.0100 ####[facility] [address] [place], [address] Culture, Blood (WB)on 2023 CUB Blood cultures x2, f rom two different sites No growth in 5 days. Normal [facility] Comment on above: Performed By: #### L 500.4050, L503.6005, L300.3900, L501.3620, L501.5200, M200.1000, L100.0100, L501.4020, L300.4310 ####[facility] [address] [place], [address] CBC W/Diff, Automatedon - Absolute Neut Normal 2.0-7.7 [facility] Comment on above: Result Comment: Canc elled via OM: Order cancelled - Patient discharged Performed By: #### L 500.4050, L100.0100 ####[facility] [address] [place], [address] HCT Normal 37-47 [facility] Comment on above: Result Comment: Canc elled via OM: Order cancelled - Patient discharged Performed By: #### L 500.4050, L100.0100 ####[facility] [address] [place], [address] HGB Normal 12.0-15.0 [facility] Comment on above: Result Comment: Canc elled via OM: Order cancelled - Patient discharged Performed By: #### L 500.4050, L100.0100 ####[facility] [address] [place], [address] MCH Normal 27.0-32.0 [facility] Comment on above: Result Comment: Canc elled via OM: Order cancelled - Patient discharged Performed By: #### L 500.4050, L100.0100 ####[facility] [address] [place], [address] MCHC Normal 32-36 [facility] Comment on above: Result Comment: Canc elled via OM: Order cancelled - Patient discharged Performed By: #### L 500.4050, L100.0100 ####[facility] [address] [place], [address] MCV Normal 81-99 [facility] Comment on above: Result Comment: Canc elled via OM: Order cancelled - Patient discharged Performed By: #### L 500.4050, L100.0100 ####[facility] [address] [place], [address] NEUT% Normal 47-70 [facility] Comment on above: Result Comment: Canc elled via OM: Order cancelled - Patient discharged Performed By: #### L 500.4050, L100.0100 ####[facility] [address] [place], [address] PLT Normal 150-450 [facility] Comment on above: Result Comment: Canc elled via OM: Order cancelled - Patient discharged Performed By: #### L 500.4050, L100.0100 ####[facility] [address] [place], [address] RBC Normal 4.2-5.4 [facility] Comment on above: Result Comment: Canc elled via OM: Order cancelled - Patient discharged Performed By: #### L 500.4050, L100.0100 ####[facility] [address] [place], [address] RDW CV Normal 11.6-14.6 [facility] Comment on above: Result Comment: Canc elled via OM: Order cancelled - Patient discharged Performed By: #### L 500.4050, L100.0100 ####[facility] [address] [place], [address] RDW SD Normal 35.1-43.9 [facility] Comment on above: Result Comment: Canc elled via OM: Order cancelled - Patient discharged Performed By: #### L 500.4050, L100.0100 ####[facility] [address] [place], [address] WBC Normal 4.4-11.0 [facility] Comment on above: Result Comment: Canc elled via OM: Order cancelled - Patient discharged Performed By: #### L 500.4050, L100.0100 ####[facility] [address] [place], [address] Comprehensive Metabolic Prof ilon 11-23-2023 ALB Normal 3.2-5.0 [facility] Comment on above: Result Comment: Canc elled via OM: Order cancelled - Patient discharged Performed By: #### L 500.4050, L100.0100 ####[facility] [address] [place], [address] ALK P Normal 45-117 [facility] Comment on above: Result Comment: Canc elled via OM: Order cancelled - Patient discharged Performed By: #### L 500.4050, L100.0100 ####[facility] [address] [place], [address] ALT Normal 13-56 [facility] Comment on above: Result Comment: Canc elled via OM: Order cancelled - Patient discharged Performed By: #### L 500.4050, L100.0100 ####[facility] [address] [place], [address] AST Normal 15-37 [facility] Comment on above: Result Comment: Canc elled via OM: Order cancelled - Patient discharged Performed By: #### L 500.4050, L100.0100 ####[facility] [address] [place], [address] BUN Normal 7-18 [facility] Comment on above: Result Comment: Canc elled via OM: Order cancelled - Patient discharged Performed By: #### L 500.4050, L100.0100 ####[facility] [address] [place], [address] BUN/CRE Normal 10-20 [facility] Comment on above: Result Comment: Canc elled via OM: Order cancelled - Patient discharged Performed By: #### L 500.4050, L100.0100 ####[facility] [address] [place], [address] CA,Total Normal 8.5-10.1 [facility] Comment on above: Result Comment: Canc elled via OM: Order cancelled - Patient discharged Performed By: #### L 500.4050, L100.0100 ####[facility] [address] [place], [address] CL Normal 98-107 [facility] Comment on above: Result Comment: Canc elled via OM: Order cancelled - Patient discharged Performed By: #### L 500.4050, L100.0100 ####[facility] [address] [place], [address] CO2 Normal 21.0-32.0 [facility] Comment on above: Result Comment: Canc elled via OM: Order cancelled - Patient discharged Performed By: #### L 500.4050, L100.0100 ####[facility] [address] [place], [address] CREAT,SERUM Normal 0.55-1.02 [facility] Comment on above: Result Comment: Canc elled via OM: Order cancelled - Patient discharged Performed By: #### L 500.4050, L100.0100 ####[facility] [address] [place], [address] EST GFR Normal >60 [facility] Comment on above: Result Comment: Canc elled via OM: Order cancelled - Patient discharged Performed By: #### L 500.4050, L100.0100 ####[facility] [address] [place], [address] EST GFR - AA Normal >60 [facility] Comment on above: Result Comment: Canc elled via OM: Order cancelled - Patient discharged Performed By: #### L 500.4050, L100.0100 ####[facility] [address] [place], [address] GAP Normal 5-15 [facility] Comment on above: Result Comment: Canc elled via OM: Order cancelled - Patient discharged Performed By: #### L 500.4050, L100.0100 ####[facility] [address] [place], [address] GLU Normal 74-106 [facility] Comment on above: Result Comment: Canc elled via OM: Order cancelled - Patient discharged Performed By: #### L 500.4050, L100.0100 ####[facility] [address] [place], [address] Potassium Normal 3.5-5.1 [facility] Comment on above: Result Comment: Canc elled via OM: Order cancelled - Patient discharged Performed By: #### L 500.4050, L100.0100 ####[facility] [address] [place], [address] T BILI Normal 0.20-1.00 [facility] Comment on above: Result Comment: Canc elled via OM: Order cancelled - Patient discharged Performed By: #### L 500.4050, L100.0100 ####[facility] [address] [place], [address] T PROT Normal 6.4-8.2 [facility] Comment on above: Result Comment: Canc elled via OM: Order cancelled - Patient discharged Performed By: #### L 500.4050, L100.0100 ####[facility] [address] [place], [address] Comprehensive Metabolic Profil Normal 136-145 [facility] Comment on above: Result Comment: Canc elled via OM: Order cancelled - Patient discharged Performed By: #### L 500.4050, L100.0100 ####[facility] [address] [place], [address] CBC W/Diff, Automatedon 08-2 Absolute Neut Normal 2.0-7.7 [facility] Comment on above: Result Comment: Canc elled via OM: Order cancelled - Patient discharged Performed By: #### L 100.0100, L500.4050 ####[facility] [address] [place], [address] HCT Normal 37-47 [facility] Comment on above: Result Comment: Canc elled via OM: Order cancelled - Patient discharged Performed By: #### L 100.0100, L500.4050 ####[facility] [address] [place], [address] HGB Normal 12.0-15.0 [facility] Comment on above: Result Comment: Canc elled via OM: Order cancelled - Patient discharged Performed By: #### L 100.0100, L500.4050 ####[facility] [address] [place], [address] MCH Normal 27.0-32.0 [facility] Comment on above: Result Comment: Canc elled via OM: Order cancelled - Patient discharged Performed By: #### L 100.0100, L500.4050 ####[facility] [address] [place], [address] MCHC Normal 32-36 [facility] Comment on above: Result Comment: Canc elled via OM: Order cancelled - Patient discharged Performed By: #### L 100.0100, L500.4050 ####[facility] [address] [place], [address] MCV Normal 81-99 [facility] Comment on above: Result Comment: Canc elled via OM: Order cancelled - Patient discharged Performed By: #### L 100.0100, L500.4050 ####[facility] [address] [place], [address] NEUT% Normal 47-70 [facility] Comment on above: Result Comment: Canc elled via OM: Order cancelled - Patient discharged Performed By: #### L 100.0100, L500.4050 ####[facility] [address] [place], [address] PLT Normal 150-450 [facility] Comment on above: Result Comment: Canc elled via OM: Order cancelled - Patient discharged Performed By: #### L 100.0100, L500.4050 ####[facility] [address] [place], [address] RBC Normal 4.2-5.4 [facility] Comment on above: Result Comment: Canc elled via OM: Order cancelled - Patient discharged Performed By: #### L 100.0100, L500.4050 ####[facility] [address] [place], [address] RDW CV Normal 11.6-14.6 [facility] Comment on above: Result Comment: Canc elled via OM: Order cancelled - Patient discharged Performed By: #### L 100.0100, L500.4050 ####[facility] [address] [place], [address] RDW SD Normal 35.1-43.9 [facility] Comment on above: Result Comment: Canc elled via OM: Order cancelled - Patient discharged Performed By: #### L 100.0100, L500.4050 ####[facility] [address] [place], [address] WBC Normal 4.4-11.0 [facility] Comment on above: Result Comment: Canc elled via OM: Order cancelled - Patient discharged Performed By: #### L 100.0100, L500.4050 ####[facility] [address] [place], [address] Comprehensive Metabolic Prof alfonso 11-22-2023 ALB Normal 3.2-5.0 [facility] Comment on above: Result Comment: Canc elled via OM: Order cancelled - Patient discharged Performed By: #### L 100.0100, L500.4050 ####[facility] [address] [place], [address] ALK P Normal 45-117 [facility] Comment on above: Result Comment: Canc elled via OM: Order cancelled - Patient discharged Performed By: #### L 100.0100, L500.4050 ####[facility] [address] [place], [address] ALT Normal 13-56 [facility] Comment on above: Result Comment: Canc elled via OM: Order cancelled - Patient discharged Performed By: #### L 100.0100, L500.4050 ####[facility] [address] [place], [address] AST Normal 15-37 [facility] Comment on above: Result Comment: Canc elled via OM: Order cancelled - Patient discharged Performed By: #### L 100.0100, L500.4050 ####[facility] [address] [place], [address] BUN Normal 7-18 [facility] Comment on above: Result Comment: Canc elled via OM: Order cancelled - Patient discharged Performed By: #### L 100.0100, L500.4050 ####[facility] [address] [place], [address] BUN/CRE Normal 10-20 [facility] Comment on above: Result Comment: Canc elled via OM: Order cancelled - Patient discharged Performed By: #### L 100.0100, L500.4050 ####[facility] [address] [place], [address] CA,Total Normal 8.5-10.1 [facility] Comment on above: Result Comment: Canc elled via OM: Order cancelled - Patient discharged Performed By: #### L 100.0100, L500.4050 ####[facility] [address] [place], [address] CL Normal 98-107 [facility] Comment on above: Result Comment: Canc elled via OM: Order cancelled - Patient discharged Performed By: #### L 100.0100, L500.4050 ####[facility] [address] [place], [address] CO2 Normal 21.0-32.0 [facility] Comment on above: Result Comment: Canc elled via OM: Order cancelled - Patient discharged Performed By: #### L 100.0100, L500.4050 ####[facility] [address] [place], [address] CREAT,SERUM Normal 0.55-1.02 [facility] Comment on above: Result Comment: Canc elled via OM: Order cancelled - Patient discharged Performed By: #### L 100.0100, L500.4050 ####[facility] [address] [place], [address] EST GFR Normal >60 [facility] Comment on above: Result Comment: Canc elled via OM: Order cancelled - Patient discharged Performed By: #### L 100.0100, L500.4050 ####[facility] [address] [place], [address] EST GFR - AA Normal >60 [facility] Comment on above: Result Comment: Canc elled via OM: Order cancelled - Patient discharged Performed By: #### L 100.0100, L500.4050 ####[facility] [address] [place], [address] GAP Normal 5-15 [facility] Comment on above: Result Comment: Canc elled via OM: Order cancelled - Patient discharged Performed By: #### L 100.0100, L500.4050 ####[facility] [address] [place], [address] GLU Normal 74-106 [facility] Comment on above: Result Comment: Canc elled via OM: Order cancelled - Patient discharged Performed By: #### L 100.0100, L500.4050 ####[facility] [address] [place], [address] Potassium Normal 3.5-5.1 [facility] Comment on above: Result Comment: Canc elled via OM: Order cancelled - Patient discharged Performed By: #### L 100.0100, L500.4050 ####[facility] [address] [place], [address] T BILI Normal 0.20-1.00 [facility] Comment on above: Result Comment: Canc elled via OM: Order cancelled - Patient discharged Performed By: #### L 100.0100, L500.4050 ####[facility] [address] [place], [address] T PROT Normal 6.4-8.2 [facility] Comment on above: Result Comment: Canc elled via OM: Order cancelled - Patient discharged Performed By: #### L 100.0100, L500.4050 ####[facility] [address] [place], [address] Comprehensive Metabolic Profil Normal 136-145 [facility] Comment on above: Result Comment: Canc elled via OM: Order cancelled - Patient discharged Performed By: #### L 100.0100, L500.4050 ####[facility] [address] [place], [address] Basic Metabolic Profile (BMP )on 11-21-2023 BUN/CRE 15.4 RATIO Normal 10-20 [facility] Comment on above: Performed By: #### L 500.2500 ####[facility] [address] [place], [address] CA,Total 8.5 mg/dL Normal 8.5-10.1 [facility] Comment on above: Performed By: #### L 500.2500 ####[facility] [address] [place], [address] Chloride [Moles/Vol] 97 mmol/L Low 98-107 [facility] Comment on above: Performed By: #### L 500.2500 ####[facility] [address] [place], [address] CO2 [Moles/Vol] 26.0 mmol/L Normal 21.0-32.0 [facility] Comment on above: Performed By: #### L 500.2500 ####[facility] [address] [place], [address] Creatinine [Mass/Vol] 4.86 mg/dL High 0.55-1.02 [facility] Comment on above: Result Comment: The validity of the calculated GFR GFRAA in patients over70 years has not been determined. Clinical correlation isessential. Performed By: #### L 500.2500 ####[facility] [address] [place], [address] ECRCL 14.58 ml/min Normal [facility] Comment on above: Performed By: #### L 500.2500 ####[facility] [address] [place], [address] EST GFR - AA 12 mL/min Low >60 [facility] Comment on above: Result Comment: Afri can Peruvian GFR Calc Performed By: #### L 500.2500 ####[facility] [address] [place], [address] GAP 9 Normal 5-15 [facility] Comment on above: Performed By: #### L 500.2500 ####[facility] [address] [place], [address] GFR/1.73 sq M.predicted among non-blacks MDRD (S/P/Bld) [Vol rate/Area] 10 mL/min/{1.73_m2} Low >60 [facility] Comment on above: Result Comment: Non- GFR Calc Performed By: #### L 500.2500 ####[facility] [address] [place], [address] Glucose [Mass/Vol] 325 mg/dL High 74-106 [facility] Comment on above: Result Comment: Gluc ose result greater than or equal to 200 mg/dLsuggests DIABETES MELLITUS per A.D.A. criteria. Performed By: #### L 500.2500 ####[facility] [address] [place], [address] Potassium [Moles/Vol] 4.0 mmol/L Normal 3.5-5.1 [facility] Comment on above: Performed By: #### L 500.2500 ####[facility] [address] [place], [address] Sodium [Moles/Vol] 132 mmol/L Low 136-145 [facility] Comment on above: Performed By: #### L 500.2500 ####[facility] [address] [place], [address] Urea nitrogen [Mass/Vol] 75 mg/dL High 7-18 [facility] Comment on above: Performed By: #### L 500.2500 ####[facility] [address] [place], [address] Bedside Glucoseon 11-21-2023 FINGERSTICK GLU 272 mg/dL High 74-106 [facility] Comment on above: Result Comment: GALA DENNISON OF PATIENT CARE PER NURSING PROTOCOL Performed By: #### L 501.080 ####[facility] [address] [place], [address] FINGERSTICK GLU 314 mg/dL High 74-106 [facility] Comment on above: Result Comment: GALA GEMENT OF PATIENT CARE PER NURSING PROTOCOL Performed By: #### L 501.080 ####[facility] [address] [place], [address] FINGERSTICK GLU 366 mg/dL High 74-106 [facility] Comment on above: Result Comment: GALA GEMENT OF PATIENT CARE PER NURSING PROTOCOL Performed By: #### L 501.080 ####[facility] [address] [place], [address] CBC W/Diff, Automatedon 08-2 -2023 Absolute Lymph 0.42 X10 3/uL Low 0.83-4.51 [facility] Comment on above: Performed By: #### L 500.4050, L100.0100 ####[facility] [address] [place], [address] Absolute Neut 13.2 X10 3/uL High 2.0-7.7 [facility] Comment on above: Performed By: #### L 500.4050, L100.0100 ####[facility] [address] [place], [address] Basophils/100 WBC (Bld) 0.1 % Normal 0-1 [facility] Comment on above: Performed By: #### L 500.4050, L100.0100 ####[facility] [address] [place], [address] Eosinophils/100 WBC (Bld) 0.1 % Normal 0-5 [facility] Comment on above: Performed By: #### L 500.4050, L100.0100 ####[facility] [address] [place], [address] Erythrocyte distribution width (RBC) [Ratio] 15.2 % High 11.6-14.6 [facility] Comment on above: Performed By: #### L 500.4050, L100.0100 ####[facility] [address] [place], [address] Hematocrit (Bld) [Volume fraction] 27.4 % Low 37-47 [facility] Comment on above: Performed By: #### L 500.4050, L100.0100 ####[facility] [address] [place], [address] Hemoglobin (Bld) [Mass/Vol] 8.9 g/dL Low 12.0-15.0 [facility] Comment on above: Performed By: #### L 500.4050, L100.0100 ####[facility] [address] [place], [address] IG% 2.400 High 0.0-0.9 [facility] Comment on above: Result Comment: IG% - Immature Granulocytes (promyelocytes, myelocytes andmetamyelocytes) > 1% indicates that a LEFT SHIFT is Present. Performed By: #### L 500.4050, L100.0100 ####[facility] [address] [place], [address] Lymphocytes/100 WBC (Bld) 2.9 % Low 19-41 [facility] Comment on above: Performed By: #### L 500.4050, L100.0100 ####[facility] [address] [place], [address] MCH (RBC) [Entitic mass] 31.0 pg Normal 27.0-32.0 [facility] Comment on above: Performed By: #### L 500.4050, L100.0100 ####[facility] [address] [place], [address] MCHC (RBC) [Mass/Vol] 32.5 g/dL Normal 32-36 [facility] Comment on above: Performed By: #### L 500.4050, L100.0100 ####[facility] [address] [place], [address] MCV (RBC) [Entitic vol] 95.5 fL Normal 81-99 [facility] Comment on above: Performed By: #### L 500.4050, L100.0100 ####[facility] [address] [place], [address] Monocytes/100 WBC (Bld) 2.3 % Normal 0-10 [facility] Comment on above: Performed By: #### L 500.4050, L100.0100 ####[facility] [address] [place], [address] Neutrophils/100 WBC (Bld) 92.2 % High 47-70 [facility] Comment on above: Performed By: #### L 500.4050, L100.0100 ####[facility] [address] [place], [address] Nucleated RBC (Bld) [#/Vol] 0 10*3/uL Normal 0-5 [facility] Comment on above: Performed By: #### L 500.4050, L100.0100 ####[facility] [address] [place], [address] Platelet mean volume (Bld) [Entitic vol] 13.5 fL High 6.2-12.0 [facility] Comment on above: Performed By: #### L 500.4050, L100.0100 ####[facility] [address] [place], [address] Platelets (Bld) [#/Vol] 165 10*3/uL Normal 150-450 [facility] Comment on above: Performed By: #### L 500.4050, L100.0100 ####[facility] [address] [place], [address] RBC (Bld) [#/Vol] 2.87 10*6/uL Low 4.2-5.4 [facility] Comment on above: Performed By: #### L 500.4050, L100.0100 ####[facility] [address] [place], [address] RDW SD 52.8 fl High 35.1-43.9 [facility] Comment on above: Performed By: #### L 500.4050, L100.0100 ####[facility] [address] [place], [address] WBC (Bld) [#/Vol] 14.3 10*3/uL High 4.4-11.0 [facility] Comment on above: Performed By: #### L 500.4050, L100.0100 ####[facility] [address] [place], [address] Comprehensive Metabolic Prof il 11-21-2023 Albumin [Mass/Vol] 2.9 g/dL Low 3.2-5.0 [facility] Comment on above: Performed By: #### L 500.4050, L100.0100 ####[facility] [address] [place], [address] Albumin/Globulin [Mass ratio] 0.9 {ratio} Normal 0.9-2.4 [facility] Comment on above: Performed By: #### L 500.4050, L100.0100 ####[facility] [address] [place], [address] ALK P 56 U/L Normal 45-117 [facility] Comment on above: Performed By: #### L 500.4050, L100.0100 ####[facility] [address] [place], [address] ALT [Catalytic activity/Vol] 32 U/L Normal 13-56 [facility] Comment on above: Performed By: #### L 500.4050, L100.0100 ####[facility] [address] [place], [address] AST [Catalytic activity/Vol] 31 U/L Normal 15-37 [facility] Comment on above: Performed By: #### L 500.4050, L100.0100 ####[facility] [address] [place], [address] Bilirubin [Mass/Vol] 0.70 mg/dL Normal 0.20-1.00 [facility] Comment on above: Result Comment: For patients on eltrombopag therapy, use of Dimension [place] TBIL is not recommended. Performed By: #### L 500.4050, L100.0100 ####[facility] [address] [place], [address] BUN/CRE 16.6 RATIO Normal 10-20 [facility] Comment on above: Performed By: #### L 500.4050, L100.0100 ####[facility] [address] [place], [address] CA,Total 7.6 mg/dL Low 8.5-10.1 [facility] Comment on above: Performed By: #### L 500.4050, L100.0100 ####[facility] [address] [place], [address] Chloride [Moles/Vol] 97 mmol/L Low 98-107 [facility] Comment on above: Performed By: #### L 500.4050, L100.0100 ####[facility] [address] [place], [address] CO2 [Moles/Vol] 20.0 mmol/L Low 21.0-32.0 [facility] Comment on above: Performed By: #### L 500.4050, L100.0100 ####[facility] [address] [place], [address] Creatinine [Mass/Vol] 7.10 mg/dL High 0.55-1.02 [facility] Comment on above: Result Comment: The validity of the calculated GFR GFRAA in patients over70 years has not been determined. Clinical correlation isessential. Performed By: #### L 500.4050, L100.0100 ####[facility] [address] [place], [address] ECRCL 10.14 ml/min Normal [facility] Comment on above: Performed By: #### L 500.4050, L100.0100 ####[facility] [address] [place], [address] EST GFR - AA 8 mL/min Low >60 [facility] Comment on above: Result Comment: Afri can Peruvian GFR Calc Performed By: #### L 500.4050, L100.0100 ####[facility] [address] [place], [address] GAP 14 Normal 5-15 [facility] Comment on above: Performed By: #### L 500.4050, L100.0100 ####[facility] [address] [place], [address] GFR/1.73 sq M.predicted among non-blacks MDRD (S/P/Bld) [Vol rate/Area] 6 mL/min/{1.73_m2} Low >60 [facility] Comment on above: Result Comment: Non- GFR Calc Performed By: #### L 500.4050, L100.0100 ####[facility] [address] [place], [address] Globulin (S) [Mass/Vol] 3.4 g/dL Normal 2.2-4.2 [facility] Comment on above: Performed By: #### L 500.4050, L100.0100 ####[facility] [address] [place], [address] Glucose [Mass/Vol] 355 mg/dL High 74-106 [facility] Comment on above: Result Comment: Gluc ose result greater than or equal to 200 mg/dLsuggests DIABETES MELLITUS per A.D.A. criteria. Performed By: #### L 500.4050, L100.0100 ####[facility] [address] [place], [address] Potassium [Moles/Vol] 5.5 mmol/L High 3.5-5.1 [facility] Comment on above: Performed By: #### L 500.4050, L100.0100 ####[facility] [address] [place], [address] Sodium [Moles/Vol] 131 mmol/L Low 136-145 [facility] Comment on above: Performed By: #### L 500.4050, L100.0100 ####[facility] [address] [place], [address] T PROT 6.3 g/dL Low 6.4-8.2 [facility] Comment on above: Performed By: #### L 500.4050, L100.0100 ####[facility] [address] [place], [address] Urea nitrogen [Mass/Vol] 118 mg/dL Invalid Interpretation Code 7-18 [facility] Comment on above: Result Comment: Crit ical Result(s) Called at: 05:31:02 11/21/2023 by: NoahBurns. mila Alatorre RN PCU. Results read back by same. Performed By: #### L 500.4050, L100.0100 ####[facility] [address] [place], [address] Discharge Instructionon 10-29 Discharge Instruction Normal [facility] Urine Cultureon 11-21-2023 URC Normal [facility] Comment on above: Performed By: #### M 300.4600, M100.2200, L400.0001, M300.4500 ####[facility] [address] [place], [address] Basic Metabolic Profile (BMP )on 11-20-2023 BUN Normal 7-18 [facility] Comment on above: Result Comment: Canc elled via OM: MD Ordered Performed By: #### L 500.2500 ####[facility] [address] [place], [address] BUN/CRE Normal 10-20 [facility] Comment on above: Result Comment: Canc elled via OM: MD Ordered Performed By: #### L 500.2500 ####[facility] [address] [place], [address] CA,Total Normal 8.5-10.1 [facility] Comment on above: Result Comment: Canc elled via OM: MD Ordered Performed By: #### L 500.2500 ####[facility] [address] [place], [address] CL Normal 98-107 [facility] Comment on above: Result Comment: Canc elled via OM: MD Ordered Performed By: #### L 500.2500 ####[facility] [address] [place], [address] CO2 Normal 21.0-32.0 [facility] Comment on above: Result Comment: Canc elled via OM: MD Ordered Performed By: #### L 500.2500 ####[facility] [address] [place], [address] CREAT,SERUM Normal 0.55-1.02 [facility] Comment on above: Result Comment: Canc elled via OM: MD Ordered Performed By: #### L 500.2500 ####[facility] [address] [place], [address] EST GFR Normal >60 [facility] Comment on above: Result Comment: Canc elled via OM: MD Ordered Performed By: #### L 500.2500 ####[facility] [address] [place], [address] EST GFR - AA Normal >60 [facility] Comment on above: Result Comment: Canc elled via OM: MD Ordered Performed By: #### L 500.2500 ####[facility] [address] [place], [address] GAP Normal 5-15 [facility] Comment on above: Result Comment: Canc elled via OM: MD Ordered Performed By: #### L 500.2500 ####[facility] [address] [place], [address] GLU Normal 74-106 [facility] Comment on above: Result Comment: Canc elled via OM: MD Ordered Performed By: #### L 500.2500 ####[facility] [address] [place], [address] Potassium Normal 3.5-5.1 [facility] Comment on above: Result Comment: Canc elled via OM: MD Ordered Performed By: #### L 500.2500 ####[facility] [address] [place], [address] Basic Metabolic Profile (BMP) Normal 136-145 [facility] Comment on above: Result Comment: Canc elled via OM: MD Ordered Performed By: #### L 500.2500 ####[facility] [address] [place], [address] Bedside Glucoseon 11-20-2023 FINGERSTICK GLU 442 mg/dL High 74-106 [facility] Comment on above: Result Comment: GALA DENNISON OF PATIENT CARE PER NURSING PROTOCOL Performed By: #### L 501.080 ####[facility] [address] [place], [address] FINGERSTICK GLU 345 mg/dL High [address] [place] [address] Comment on above: Result Comment: GALA GEMENT OF PATIENT CARE PER NURSING PROTOCOL Performed By: #### L 501.080 ####[facility] [address] [place], [address] FINGERSTICK GLU 247 mg/dL High [address] [place] [address] Comment on above: Result Comment: GALA GEMENT OF PATIENT CARE PER NURSING PROTOCOL Performed By: #### L 501.080 ####[facility] [address] [facility] [address] FINGERSTICK GLU 123 mg/dL High [address] [place] [address] Comment on above: Result Comment: GALA GEMENT OF PATIENT CARE PER NURSING PROTOCOL Performed By: #### L 501.080 ####[facility] [address] [facility] [address] FINGERSTICK GLU 129 mg/dL High [address] [place] [address] Comment on above: Result Comment: GALA GEMENT OF PATIENT CARE PER NURSING PROTOCOL Performed By: #### L 501.080 ####[facility] [address] [place], [address] FINGERSTICK GLU 311 mg/dL High [address] [place] [address] Comment on above: Result Comment: GALA GEMENT OF PATIENT CARE PER NURSING PROTOCOL Performed By: #### L 501.080 ####[facility] [address] [place], [address] FINGERSTICK GLU 474 mg/dL Invalid Interpretation Code [address] [place] [address] Comment on above: Result Comment: Repe at TestMANAGEMENT OF PATIENT CARE PER NURSING PROTOCOL Performed By: #### L 501.080 ####[facility] [address] [place], [address] FINGERSTICK GLU > 500 Invalid Interpretation Code [address] [place] [address] Comment on above: Result Comment: Insu kami GivenMANAGEMENT OF PATIENT CARE PER NURSING PROTOCOL Performed By: #### L 501.080 ####[facility] [address] [place], [address] CBC W/Diff, Automatedon 08-2 -2023 Absolute Lymph 0.45 X10 3/uL Low 0.83-4.51 [facility] Comment on above: Performed By: #### L 500.4050, L100.0100 ####[facility] [address] [place], [address] Absolute Neut 14.5 X10 3/uL High 2.0-7.7 [facility] Comment on above: Performed By: #### L 500.4050, L100.0100 ####[facility] [address] [place], [address] Basophils/100 WBC (Bld) 0.1 % Normal 0-1 [facility] Comment on above: Performed By: #### L 500.4050, L100.0100 ####[facility] [address] [place], [address] Eosinophils/100 WBC (Bld) 0.0 % Normal 0-5 [facility] Comment on above: Performed By: #### L 500.4050, L100.0100 ####[facility] [address] [place], [address] Erythrocyte distribution width (RBC) [Ratio] 15.2 % High 11.6-14.6 [facility] Comment on above: Performed By: #### L 500.4050, L100.0100 ####[facility] [address] [place], [address] Hematocrit (Bld) [Volume fraction] 29.1 % Low 37-47 [facility] Comment on above: Performed By: #### L 500.4050, L100.0100 ####[facility] [address] [place], [address] Hemoglobin (Bld) [Mass/Vol] 9.6 g/dL Low 12.0-15.0 [facility] Comment on above: Performed By: #### L 500.4050, L100.0100 ####[facility] [address] [place], [address] IG% 1.100 High 0.0-0.9 [facility] Comment on above: Result Comment: IG% - Immature Granulocytes (promyelocytes, myelocytes andmetamyelocytes) > 1% indicates that a LEFT SHIFT is Present. Performed By: #### L 500.4050, L100.0100 ####[facility] [address] [place], [address] Lymphocytes/100 WBC (Bld) 2.8 % Low 19-41 [facility] Comment on above: Performed By: #### L 500.4050, L100.0100 ####[facility] [address] [place], [address] MCH (RBC) [Entitic mass] 31.2 pg Normal 27.0-32.0 [facility] Comment on above: Performed By: #### L 500.4050, L100.0100 ####[facility] [address] [place], [address] MCHC (RBC) [Mass/Vol] 33.0 g/dL Normal 32-36 [facility] Comment on above: Performed By: #### L 500.4050, L100.0100 ####[facility] [address] [place], [address] MCV (RBC) [Entitic vol] 94.5 fL Normal 81-99 [facility] Comment on above: Performed By: #### L 500.4050, L100.0100 ####[facility] [address] [place], [address] Monocytes/100 WBC (Bld) 4.4 % Normal 0-10 [facility] Comment on above: Performed By: #### L 500.4050, L100.0100 ####[facility] [address] [place], [address] Neutrophils/100 WBC (Bld) 91.6 % High 47-70 [facility] Comment on above: Performed By: #### L 500.4050, L100.0100 ####[facility] [address] [place], [address] Nucleated RBC (Bld) [#/Vol] 0 10*3/uL Normal 0-5 [facility] Comment on above: Performed By: #### L 500.4050, L100.0100 ####[facility] [address] [place], [address] Platelet mean volume (Bld) [Entitic vol] 12.6 fL High 6.2-12.0 [facility] Comment on above: Performed By: #### L 500.4050, L100.0100 ####[facility] [address] [place], [address] Platelets (Bld) [#/Vol] 165 10*3/uL Normal 150-450 [facility] Comment on above: Performed By: #### L 500.4050, L100.0100 ####[facility] [address] [place], [address] RBC (Bld) [#/Vol] 3.08 10*6/uL Low 4.2-5.4 [facility] Comment on above: Performed By: #### L 500.4050, L100.0100 ####[facility] [address] [place], [address] RDW SD 52.5 fl High 35.1-43.9 [facility] Comment on above: Performed By: #### L 500.4050, L100.0100 ####[facility] [address] [place], [address] WBC (Bld) [#/Vol] 15.9 10*3/uL High 4.4-11.0 [facility] Comment on above: Performed By: #### L 500.4050, L100.0100 ####[facility] [address] [place], [address] Comprehensive Metabolic Prof ilon 11-20-2023 Albumin [Mass/Vol] 2.9 g/dL Low 3.2-5.0 [facility] Comment on above: Performed By: #### L 500.4050, L100.0100 ####[facility] [address] [place], [address] Albumin/Globulin [Mass ratio] 0.8 {ratio} Low 0.9-2.4 [facility] Comment on above: Performed By: #### L 500.4050, L100.0100 ####[facility] [address] [place], [address] ALK P 66 U/L Normal 45-117 [facility] Comment on above: Performed By: #### L 500.4050, L100.0100 ####[facility] [address] [place], [address] ALT [Catalytic activity/Vol] 23 U/L Normal 13-56 [facility] Comment on above: Performed By: #### L 500.4050, L100.0100 ####[facility] [address] [place], [address] AST [Catalytic activity/Vol] 26 U/L Normal 15-37 [facility] Comment on above: Performed By: #### L 500.4050, L100.0100 ####[facility] [address] [place], [address] Bilirubin [Mass/Vol] 0.80 mg/dL Normal 0.20-1.00 [facility] Comment on above: Result Comment: For patients on eltrombopag therapy, use of Dimension [place] TBIL is not recommended. Performed By: #### L 500.4050, L100.0100 ####[facility] [address] [place], [address] BUN/CRE 14.6 RATIO Normal 10-20 [facility] Comment on above: Performed By: #### L 500.4050, L100.0100 ####[facility] [address] [place], [address] CA,Total 8.5 mg/dL Normal 8.5-10.1 [facility] Comment on above: Performed By: #### L 500.4050, L100.0100 ####[facility] [address] [place], [address] Chloride [Moles/Vol] 102 mmol/L Normal 98-107 [facility] Comment on above: Performed By: #### L 500.4050, L100.0100 ####[facility] [address] [place], [address] CO2 [Moles/Vol] 27.0 mmol/L Normal 21.0-32.0 [facility] Comment on above: Performed By: #### L 500.4050, L100.0100 ####[facility] [address] [place], [address] Creatinine [Mass/Vol] 6.02 mg/dL High 0.55-1.02 [facility] Comment on above: Result Comment: The validity of the calculated GFR GFRAA in patients over70 years has not been determined. Clinical correlation isessential. Performed By: #### L 500.4050, L100.0100 ####[facility] [address] [place], [address] ECRCL 11.96 ml/min Normal [facility] Comment on above: Performed By: #### L 500.4050, L100.0100 ####[facility] [address] [place], [address] EST GFR - AA 9 mL/min Low >60 [facility] Comment on above: Result Comment: Afri can Peruvian GFR Calc Performed By: #### L 500.4050, L100.0100 ####[facility] [address] [place], [address] GAP 8 Normal 5-15 [facility] Comment on above: Performed By: #### L 500.4050, L100.0100 ####[facility] [address] [place], [address] GFR/1.73 sq M.predicted among non-blacks MDRD (S/P/Bld) [Vol rate/Area] 8 mL/min/{1.73_m2} Low >60 [facility] Comment on above: Result Comment: Non- GFR Calc Performed By: #### L 500.4050, L100.0100 ####[facility] [address] [place], [address] Globulin (S) [Mass/Vol] 3.6 g/dL Normal 2.2-4.2 [facility] Comment on above: Performed By: #### L 500.4050, L100.0100 ####[facility] [address] [place], [address] Glucose [Mass/Vol] 137 mg/dL High 74-106 [facility] Comment on above: Result Comment: Fast ing Glucose result greater than or equal to 126 mg/dLsuggests DIABETES MELLITUS per A.D.A. criteria. Performed By: #### L 500.4050, L100.0100 ####[facility] [address] [place], [address] Potassium [Moles/Vol] 5.2 mmol/L High 3.5-5.1 [facility] Comment on above: Performed By: #### L 500.4050, L100.0100 ####[facility] [address] [place], [address] Sodium [Moles/Vol] 137 mmol/L Normal 136-145 [facility] Comment on above: Performed By: #### L 500.4050, L100.0100 ####[facility] [address] [place], [address] T PROT 6.5 g/dL Normal 6.4-8.2 [facility] Comment on above: Performed By: #### L 500.4050, L100.0100 ####[facility] [address] [place], [address] Urea nitrogen [Mass/Vol] 88 mg/dL High 7-18 [facility] Comment on above: Performed By: #### L 500.4050, L100.0100 ####[facility] [address] [place], [address] Consultation - Intensiviston 11-20-2023 Consultation - Sterilisation Technician [facility] M8200.1000on 11-20-2023 M8200.1000 Pending MRSA PCR MRSA NEGATIVE * This is an amended result. * A prior result that was reported as final has been changed. 11/21/23 [facility] Comment on above: Performed By: #### M 8200.1000 ####[facility] [address] [place], [address] Vancomycin, Random Levelon 0 11-20-2023 VANCO, RANDOM 16.2 ug/mL High 0.0-15.0 [facility] Comment on above: Result Comment: VANC OMYCIN STANDARD DRUG THERAPY: CRITICAL VALUE IS > 15.0 mg/LVANCOMYCIN HIGH INTENSITY THERAPY: CRITICAL VALUE IS > 20.0 mg/LPLEASE CONTACT PHARMACY SERVICES (#4995) FOR INTERPRETATIONOF RESULTS. THIS RESULT DOES NOT REPRESENT A PEAK OR TROUGHLEVEL FOR THIS DRUG. Performed By: #### L 501.8850 ####[facility] [address] [place], [address] Basic Metabolic Profile (BMP )on 11-19-2023 BUN/CRE 12.6 RATIO Normal 10-20 [facility] Comment on above: Performed By: #### L 500.2500 ####[facility] [address] [place], [address] CA,Total 7.9 mg/dL Low 8.5-10.1 [facility] Comment on above: Performed By: #### L 500.2500 ####[facility] [address] [place], [address] Chloride [Moles/Vol] 101 mmol/L Normal 98-107 [facility] Comment on above: Performed By: #### L 500.2500 ####[facility] [address] [place], [address] CO2 [Moles/Vol] 26.0 mmol/L Normal 21.0-32.0 [facility] Comment on above: Performed By: #### L 500.2500 ####[facility] [address] [place], [address] Creatinine [Mass/Vol] 5.25 mg/dL High 0.55-1.02 [facility] Comment on above: Result Comment: The validity of the calculated GFR GFRAA in patients over70 years has not been determined. Clinical correlation isessential. Performed By: #### L 500.2500 ####[facility] [address] [place], [address] ECRCL 13.72 ml/min Normal [facility] Comment on above: Performed By: #### L 500.2500 ####[facility] [address] [place], [address] EST GFR - AA 11 mL/min Low >60 [facility] Comment on above: Result Comment: Afri can Peruvian GFR Calc Performed By: #### L 500.2500 ####[facility] [address] [place], [address] GAP 9 Normal 5-15 [facility] Comment on above: Performed By: #### L 500.2500 ####[facility] [address] [place], [address] GFR/1.73 sq M.predicted among non-blacks MDRD (S/P/Bld) [Vol rate/Area] 9 mL/min/{1.73_m2} Low >60 [facility] Comment on above: Result Comment: Non- GFR Calc Performed By: #### L 500.2500 ####[facility] [address] [place], [address] Glucose [Mass/Vol] 368 mg/dL High 74-106 [facility] Comment on above: Result Comment: Gluc ose result greater than or equal to 200 mg/dLsuggests DIABETES MELLITUS per A.D.A. criteria. Performed By: #### L 500.2500 ####[facility] [address] [place], [address] Potassium [Moles/Vol] 5.1 mmol/L Normal 3.5-5.1 [facility] Comment on above: Performed By: #### L 500.2500 ####[facility] [address] [place], [address] Sodium [Moles/Vol] 136 mmol/L Normal 136-145 [facility] Comment on above: Performed By: #### L 500.2500 ####[facility] [address] [place], [address] Urea nitrogen [Mass/Vol] 66 mg/dL High 7-18 [facility] Comment on above: Performed By: #### L 500.2500 ####[facility] [facility] [address] [place], [address] BUN/CRE 12.6 RATIO Normal 10-20 [facility] Comment on above: Performed By: #### L 100.0100, L500.2500 ####[facility] [address] [place], [address] CA,Total 7.9 mg/dL Low 8.5-10.1 [facility] Comment on above: Performed By: #### L 100.0100, L500.2500 ####[facility] [address] [place], [address] Chloride [Moles/Vol] 104 mmol/L Normal 98-107 [facility] Comment on above: Performed By: #### L 100.0100, L500.2500 ####[facility] [address] [place], [address] CO2 [Moles/Vol] 22.0 mmol/L Normal 21.0-32.0 [facility] Comment on above: Performed By: #### L 100.0100, L500.2500 ####[facility] [address] [place], [address] Creatinine [Mass/Vol] 6.91 mg/dL High 0.55-1.02 [facility] Comment on above: Result Comment: The validity of the calculated GFR GFRAA in patients over70 years has not been determined. Clinical correlation isessential. Performed By: #### L 100.0100, L500.2500 ####[facility] [address] [place], [address] ECRCL 10.59 ml/min Normal [facility] Comment on above: Performed By: #### L 100.0100, L500.2500 ####[facility] [address] [place], [address] EST GFR - AA 8 mL/min Low >60 [facility] Comment on above: Result Comment: Afri can Peruvian GFR Calc Performed By: #### L 100.0100, L500.2500 ####[facility] [address] [place], [address] GAP 9 Normal 5-15 [facility] Comment on above: Performed By: #### L 100.0100, L500.2500 ####[facility] [address] [place], [address] GFR/1.73 sq M.predicted among non-blacks MDRD (S/P/Bld) [Vol rate/Area] 7 mL/min/{1.73_m2} Low >60 [facility] Comment on above: Result Comment: Non- GFR Calc Performed By: #### L 100.0100, L500.2500 ####[facility] [address] [place], [address] Glucose [Mass/Vol] 241 mg/dL High 74-106 [facility] Comment on above: Result Comment: Gluc ose result greater than or equal to 200 mg/dLsuggests DIABETES MELLITUS per A.D.A. criteria. Performed By: #### L 100.0100, L500.2500 ####[facility] [address] [place], [address] Potassium [Moles/Vol] 6.0 mmol/L Invalid Interpretation Code 3.5-5.1 [facility] Comment on above: Result Comment: Crit ical Result(s) Called at: 07:17:53 11/19/2023 by: MAREK Roe. Results read back by same. Performed By: #### L 100.0100, L500.2500 ####[facility] [address] [place], [address] Sodium [Moles/Vol] 135 mmol/L Low 136-145 [facility] Comment on above: Performed By: #### L 100.0100, L500.2500 ####[facility] [address] [place], [address] Urea nitrogen [Mass/Vol] 87 mg/dL High 7-18 [facility] Comment on above: Performed By: #### L 100.0100, L500.2500 ####[facility] [address] [place], [address] Bedside Glucoseon 11-19-2023 FINGERSTICK GLU 301 mg/dL High 74-106 [facility] Comment on above: Result Comment: GALA GEMENT OF PATIENT CARE PER NURSING PROTOCOL Performed By: #### L 501.080 ####[facility] [address] [place], [address] FINGERSTICK GLU 271 mg/dL High 74-106 [facility] Comment on above: Result Comment: GALA GEMENT OF PATIENT CARE PER NURSING PROTOCOL Performed By: #### L 501.080 ####[facility] [address] [place], [address] FINGERSTICK GLU 227 mg/dL High 74-106 [facility] Comment on above: Result Comment: GALA GEMENT OF PATIENT CARE PER NURSING PROTOCOL Performed By: #### L 501.080 ####[facility] [address] [place], [address] FINGERSTICK GLU 181 mg/dL High 74-106 [facility] Comment on above: Result Comment: GALA GEMENT OF PATIENT CARE PER NURSING PROTOCOL Performed By: #### L 501.080 ####[facility] [address] [place], [address] CBC W/Diff, Automatedon 08- Absolute Lymph 0.43 X10 3/uL Low 0.83-4.51 [facility] Comment on above: Performed By: #### L 100.0100, L500.2500 ####[facility] [address] [place], [address] Absolute Neut 15.9 X10 3/uL High 2.0-7.7 [facility] Comment on above: Performed By: #### L 100.0100, L500.2500 ####[facility] [address] [place], [address] Basophils/100 WBC (Bld) 0.1 % Normal 0-1 [facility] Comment on above: Performed By: #### L 100.0100, L500.2500 ####[facility] [address] [place], [address] Eosinophils/100 WBC (Bld) 0.0 % Normal 0-5 [facility] Comment on above: Performed By: #### L 100.0100, L500.2500 ####[facility] [address] [place], [address] Erythrocyte distribution width (RBC) [Ratio] 15.3 % High 11.6-14.6 [facility] Comment on above: Performed By: #### L 100.0100, L500.2500 ####[facility] [address] [place], [address] Hematocrit (Bld) [Volume fraction] 33.2 % Low 37-47 [facility] Comment on above: Performed By: #### L 100.0100, L500.2500 ####[facility] [address] [place], [address] Hemoglobin (Bld) [Mass/Vol] 10.4 g/dL Low 12.0-15.0 [facility] Comment on above: Performed By: #### L 100.0100, L500.2500 ####[facility] [address] [place], [address] IG% 0.800 Normal 0.0-0.9 [facility] Comment on above: Result Comment: IG% - Immature Granulocytes (promyelocytes, myelocytes andmetamyelocytes) > 1% indicates that a LEFT SHIFT is Present. Performed By: #### L 100.0100, L500.2500 ####[facility] [address] [place], [address] Lymphocytes/100 WBC (Bld) 2.6 % Low 19-41 [facility] Comment on above: Performed By: #### L 100.0100, L500.2500 ####[facility] [address] [place], [address] MCH (RBC) [Entitic mass] 30.9 pg Normal 27.0-32.0 [facility] Comment on above: Performed By: #### L 100.0100, L500.2500 ####[facility] [address] [place], [address] MCHC (RBC) [Mass/Vol] 31.3 g/dL Low 32-36 [facility] Comment on above: Performed By: #### L 100.0100, L500.2500 ####[facility] [address] [place], [address] MCV (RBC) [Entitic vol] 98.5 fL Normal 81-99 [facility] Comment on above: Performed By: #### L 100.0100, L500.2500 ####[facility] [address] [place], [address] Monocytes/100 WBC (Bld) 1.7 % Normal 0-10 [facility] Comment on above: Performed By: #### L 100.0100, L500.2500 ####[facility] [address] [place], [address] Neutrophils/100 WBC (Bld) 94.8 % High 47-70 [facility] Comment on above: Performed By: #### L 100.0100, L500.2500 ####[facility] [address] [place], [id number] Nucleated RBC (Bld) [#/Vol] 0 10*3/uL Normal 0-5 [facility] Comment on above: Performed By: #### L 100.0100, L500.2500 ####[facility] [address] [place], [address] Platelet mean volume (Bld) [Entitic vol] 13.2 fL High 6.2-12.0 [facility] Comment on above: Performed By: #### L 100.0100, L500.2500 ####[facility] [address] [place], [address] Platelets (Bld) [#/Vol] 130 10*3/uL Low 150-450 [facility] Comment on above: Performed By: #### L 100.0100, L500.2500 ####[facility] [address] [place], [address] RBC (Bld) [#/Vol] 3.37 10*6/uL Low 4.2-5.4 [facility] Comment on above: Performed By: #### L 100.0100, L500.2500 ####[facility] [address] [place], [address] RDW SD 54.9 fl High 35.1-43.9 [facility] Comment on above: Performed By: #### L 100.0100, L500.2500 ####[facility] [address] [place], [address] WBC (Bld) [#/Vol] 16.8 10*3/uL High 4.4-11.0 [facility] Comment on above: Performed By: #### L 100.0100, L500.2500 ####[facility] [address] [place], [address] Consultation - Nephrologyon 11-19-2023 Consultation - Nephrology Normal [facility] L501.4020on 11-19-2023 TROPONIN-I HS 48 pg/mL Normal 3.0-54.0 [facility] Comment on above: Order Comment: Comme nts: SPECIMEN #3'TROP' Serial specimen #1, #2 or #3: 3 Result Comment: Kaity olmedo Note: New Test Units and Gender Specific Reference Ranges. For more information see Policy Stat Procedure [place] High Sensitivity Troponin (TNIH) and attachments. Performed By: #### L 501.4020 ####[facility] [address] [place], [address] Legionella Antigen Urineon 0 11-19-2023 LEGU Normal [facility] Comment on above: Performed By: #### M 300.4600, M100.2200, L400.0001, M300.4500 ####[facility] [address] [place], [address] Strep pneumoniae Antig(UR,CS F)on 11-19-2023 STPAG Normal [facility] Comment on above: Performed By: #### M 300.4600, M100.2200, L400.0001, M300.4500 ####[facility] [address] [place], [address] Urinalysis, Completeon 11-18 BACTERIA 1+ /hpf Normal None Seen [facility] Comment on above: Order Comment: Urine , Random Performed By: #### M 300.4600, M100.2200, L400.0001, M300.4500 ####[facility] [address] [place], [address] EPI,SQUAMOUS 5-10 SEEN Normal 5-10 [facility] Comment on above: Order Comment: Urine , Random Performed By: #### M 300.4600, M100.2200, L400.0001, M300.4500 ####[facility] [address] [place], [address] RBC 5-10 SEEN Normal 0-5 [facility] Comment on above: Order Comment: Urine , Random Performed By: #### M 300.4600, M100.2200, L400.0001, M300.4500 ####[facility] [address] [place], [address] WBC 10-25 SEEN Normal 0-5 [facility] Comment on above: Order Comment: Urine , Random Performed By: #### M 300.4600, M100.2200, L400.0001, M300.4500 ####[facility] [address] [place], [address] Mucus Ql (Urine sed) 0 SEEN Normal [facility] Comment on above: Order Comment: Urine , Random Performed By: #### M 300.4600, M100.2200, L400.0001, M300.4500 ####[facility] [address] [place], [address] .Auto Diffon 11-18-2023 Basophil, Absolute 0.0 10 3/mcL Normal 0.0-0.2 [facility] ([place]) Comment on above: Performed By: #### L IPID, CBC, CMP, ADIFF, GFR, ANEU, TSH #### [id number] [place], [place] [address] Basophils/100 WBC (Bld) 0.3 % Normal 0.0-2.5 [facility] ([place]) Comment on above: Performed By: #### L IPID, CBC, CMP, ADIFF, GFR, ANEU, TSH #### [id number] [place], [place] [address] Eosinophil, Absolute 0.2 10 3/mcL Normal 0.0-0.4 [facility] ([place]) Comment on above: Performed By: #### L IPID, CBC, CMP, ADIFF, GFR, ANEU, TSH #### [address] [address] Eosinophils/100 WBC (Bld) 1.3 % Normal 0.0-7.0 [facility] ([place]) Comment on above: Performed By: #### L IPID, CBC, CMP, ADIFF, GFR, ANEU, TSH #### [address] [address] Lymphocyte, Absolute 0.6 10 3/mcL Low 0.8-3.9 [facility] ([place]) Comment on above: Performed By: #### L IPID, CBC, CMP, ADIFF, GFR, ANEU, TSH #### [address] [address] Lymphocytes/100 WBC (Bld) 5.0 % Low 10.0-50.0 [facility] ([place]) Comment on above: Performed By: #### L IPID, CBC, CMP, ADIFF, GFR, ANEU, TSH #### [address] [address] Monocyte, Absolute 0.8 10 3/mcL Normal 0.2-1.0 [facility] ([place]) Comment on above: Performed By: #### L IPID, CBC, CMP, ADIFF, GFR, ANEU, TSH #### [address] [address] Monocytes/100 WBC (Bld) 6.6 % Normal 1.7-13.0 [facility] ([place]) Comment on above: Performed By: #### L IPID, CBC, CMP, ADIFF, GFR, ANEU, TSH #### [address] [address] Neutrophils/100 WBC (Bld) 86.8 % High 37.0-80.0 [facility] ([place]) Comment on above: Performed By: #### L IPID, CBC, CMP, ADIFF, GFR, ANEU, TSH #### [address] [address] .GFRon 11-18-2023 GFR Non- 7 ml/min/1.73sqm Normal [facility] ([place]) Comment on above: Result Comment: GFR Population [...] CBC, CMP, ADIFF, GFR, ANEU, TSH #### [address] [address] GFR 8 ml/min/1.73sqm Normal [facility] ([place]) Comment on above: Result Comment: GFR Population [...] CBC, CMP, ADIFF, GFR, ANEU, TSH #### [address] [address] .MDWon 11-18-2023 Monocyte Distribution Width 16.85 Normal 0.00-20.00 [facility] ([place]) Comment on above: Result Comment: For ED adult patients suspected of sepsis, MDW<=20.0 does not rule out sepsis or risk of sepsis Performed By: #### L IPID, CBC, CMP, ADIFF, GFR, ANEU, TSH #### [address] [address] .NEUABSon 11-18-2023 Neutrophil, Absolute 10.6 10 3/mcL High 2.9-6.2 [facility] ([place]) Comment on above: Performed By: #### L IPID, CBC, CMP, ADIFF, GFR, ANEU, TSH #### [address] [address] 12 Lead EKGon 11-18-2023 12 Lead EKG Normal [facility] BMPon 11-18-2023 BUN/Creatinine Ratio 13 ratio Normal 7-27 [facility] ([place]) Comment on above: Performed By: #### L IPID, CBC, CMP, ADIFF, GFR, ANEU, TSH #### [address] [address] Calcium [Mass/Vol] 8.3 mg/dL Low 8.4-10.2 [facility] ([place]) Comment on above: Performed By: #### L IPID, CBC, CMP, ADIFF, GFR, ANEU, TSH #### [address] [address] Chloride [Moles/Vol] 102 mmol/L Normal 98-107 [facility] ([place]) Comment on above: Performed By: #### L IPID, CBC, CMP, ADIFF, GFR, ANEU, TSH #### [address] [address] CO2 [Moles/Vol] 29 mmol/L Normal 22-29 [facility] ([place]) Comment on above: Performed By: #### L IPID, CBC, CMP, ADIFF, GFR, ANEU, TSH #### [address] [address] Creatinine [Mass/Vol] 6.39 mg/dL High 0.55-1.02 [facility] ([place]) Comment on above: Performed By: #### L IPID, CBC, CMP, ADIFF, GFR, ANEU, TSH #### [address] [address] Electrolyte Balance 8.0 mEq/L Normal 4.0-15.0 [facility] ([place]) Comment on above: Performed By: #### L IPID, CBC, CMP, ADIFF, GFR, ANEU, TSH #### [address] [address] Glucose [Mass/Vol] 261 mg/dL High 70-105 [facility] ([place]) Comment on above: Performed By: #### L IPID, CBC, CMP, ADIFF, GFR, ANEU, TSH #### [address] [address] Potassium [Moles/Vol] 5.8 mmol/L High 3.5-5.1 [facility] ([place]) Comment on above: Performed By: #### L IPID, CBC, CMP, ADIFF, GFR, ANEU, TSH #### [address] [address] Sodium [Moles/Vol] 139 mmol/L Normal 136-145 [facility] ([place]) Comment on above: Performed By: #### L IPID, CBC, CMP, ADIFF, GFR, ANEU, TSH #### [address] [address] Urea nitrogen [Mass/Vol] 81 mg/dL High 7-18 [facility] ([place]) Comment on above: Performed By: #### L IPID, CBC, CMP, ADIFF, GFR, ANEU, TSH #### [address] [address] Blood Gases by [facility] 024 JACKIE TEST Positive Normal [facility] Comment on above: Performed By: #### L 9000.0800 ####[facility] [address] [place], [address] Base excess Calc (Bld) [Moles/Vol] -1 mmol/L Normal -2 to +2 [facility] Comment on above: Performed By: #### L 9000.0800 ####[facility] [address] [place], [address] Blood Gas Type ART Normal [facility] Comment on above: Performed By: #### L 9000.0800 ####[facility] [address] [place], [address] CO2 [Moles/Vol] 24 mmol/L Normal [facility] Comment on above: Performed By: #### L 9000.0800 ####[facility] [address] [place], [address] FI02 100.0 Normal [facility] Comment on above: Performed By: #### L 9000.0800 ####[facility] [address] [place], [address] HCO3 (Bld) [Moles/Vol] 23.3 mmol/L Normal 22-26 [facility] Comment on above: Performed By: #### L 9000.0800 ####[facility] [address] [place], [address] Mode Not entered Normal [facility] Comment on above: Performed By: #### L 9000.0800 ####[facility] [address] [place], [address] O2 Delivery Dev NRB Normal [facility] Comment on above: Performed By: #### L 9000.0800 ####[facility] [address] [place], [address] pCO2 37.1 mmHg Normal 35-45 [facility] Comment on above: Performed By: #### L 9000.0800 ####[facility] [address] [place], [address] pH (Bld) 7.41 [pH] Normal 7.35-7.45 [facility] Comment on above: Performed By: #### L 9000.0800 ####[facility] [address] [place], [address] PO2 72 mmHG Low 75-100 [facility] Comment on above: Performed By: #### L 9000.0800 ####[facility] [address] [place], [address] SITE L Radial Normal [facility] Comment on above: Performed By: #### L 9000.0800 ####[facility] [address] [place], [address] SO2 95 Normal 95-99 [facility] Comment on above: Performed By: #### L 9000.0800 ####[facility] [address] [place], [address] CBCon 11-18-2023 Erythrocyte distribution width (RBC) [Ratio] 17.2 % High 11.5-14.5 [facility] ([place]) Comment on above: Performed By: #### T SALOME, GFR, CBC, BMP, PBNP, MDW, ANEU, ADIFF #### [address] [address] Hematocrit (Bld) [Volume fraction] 34.6 % Low 37.0-47.0 [facility] ([place]) Comment on above: Performed By: #### T SALOME, GFR, CBC, BMP, PBNP, MDW, ANEU, ADIFF #### [address] [address] Hgb 11.5 G/dL Low 12.0-16.0 [facility] ([place]) Comment on above: Performed By: #### T ROPHS, GFR, CBC, BMP, PBNP, MDW, ANEU, ADIFF #### [address] [address] MCH (RBC) [Entitic mass] 31.9 pg High 27.0-31.2 [facility] ([place]) Comment on above: Performed By: #### T ROPHS, GFR, CBC, BMP, PBNP, MDW, ANEU, ADIFF #### [address] [address] MCHC 33.2 G/dL Normal 33.0-37.0 [facility] ([place]) Comment on above: Performed By: #### T CLAIREHS, GFR, CBC, BMP, PBNP, MDW, ANEU, ADIFF #### [address] [address] MCV (RBC) [Entitic vol] 95.9 fL High 80.0-94.0 [facility] ([place]) Comment on above: Performed By: #### T ROPHS, GFR, CBC, BMP, PBNP, MDW, ANEU, ADIFF #### [address] [address] Platelet 160 10 3/mcL Normal 130-400 [facility] ([place]) Comment on above: Performed By: #### T SALOME, GFR, CBC, BMP, PBNP, MDW, ANEU, ADIFF #### [address] [address] Platelet mean volume (Bld) [Entitic vol] 11.0 fL High 7.4-10.4 [facility] ([place]) Comment on above: Performed By: #### T SALOME, GFR, CBC, BMP, PBNP, MDW, ANEU, ADIFF #### [address] [address] RBC 3.61 10 6/mcL Low 4.20-5.40 [facility] ([place]) Comment on above: Performed By: #### T SALOME, GFR, CBC, BMP, PBNP, MDW, ANEU, ADIFF #### [address] [address] WBC 12.2 10 3/mcL High 4.6-10.8 [facility] ([place]) Comment on above: Performed By: #### T ROPHS, GFR, CBC, BMP, PBNP, MDW, ANEU, ADIFF #### [address] [address] CBC W/Diff, Automatedon 08-2 Absolute Lymph 0.65 X10 3/uL Low 0.83-4.51 [facility] Comment on above: Performed By: #### L 500.4050, L503.6005, L300.3900, L501.3620, L501.5200, M200.1000, L100.0100, L501.4020, L300.4310 ####[facility] [address] [place], [address] Absolute Neut 17.2 X10 3/uL High 2.0-7.7 [facility] Comment on above: Performed By: #### L 500.4050, L503.6005, L300.3900, L501.3620, L501.5200, M200.1000, L100.0100, L501.4020, L300.4310 ####[facility] [address] [place], [address] Basophils/100 WBC (Bld) 0.2 % Normal 0-1 [facility] Comment on above: Performed By: #### L 500.4050, L503.6005, L300.3900, L501.3620, L501.5200, M200.1000, L100.0100, L501.4020, L300.4310 ####[facility] [address] [place], [address] Eosinophils/100 WBC (Bld) 0.3 % Normal 0-5 [facility] Comment on above: Performed By: #### L 500.4050, L503.6005, L300.3900, L501.3620, L501.5200, M200.1000, L100.0100, L501.4020, L300.4310 ####[facility] [address] [place], [address] Erythrocyte distribution width (RBC) [Ratio] 15.8 % High 11.6-14.6 [facility] Comment on above: Performed By: #### L 500.4050, L503.6005, L300.3900, L501.3620, L501.5200, M200.1000, L100.0100, L501.4020, L300.4310 ####[facility] [address] [facility] [place], [address] Hematocrit (Bld) [Volume fraction] 36.1 % Low 37-47 [facility] Comment on above: Performed By: #### L 500.4050, L503.6005, L300.3900, L501.3620, L501.5200, M200.1000, L100.0100, L501.4020, L300.4310 ####[facility] [address] [facility] [place], [address]( Hemoglobin (Bld) [Mass/Vol] 11.6 g/dL Low 12.0-15.0 [facility] Comment on above: Performed By: #### L 500.4050, L503.6005, L300.3900, L501.3620, L501.5200, M200.1000, L100.0100, L501.4020, L300.4310 ####[facility] [address] [facility] [place], [address] IG% 0.700 Normal 0.0-0.9 [facility] Comment on above: Result Comment: IG% - Immature Granulocytes (promyelocytes, myelocytes andmetamyelocytes) > 1% indicates that a LEFT SHIFT is Present. Performed By: #### L 500.4050, L503.6005, L300.3900, L501.3620, L501.5200, M200.1000, L100.0100, L501.4020, L300.4310 ####[facility] [address] [place], [address] Lymphocytes/100 WBC (Bld) 3.4 % Low 19-41 [facility] Comment on above: Performed By: #### L 500.4050, L503.6005, L300.3900, L501.3620, L501.5200, M200.1000, L100.0100, L501.4020, L300.4310 ####[facility] [address] [place], [address] MCH (RBC) [Entitic mass] 30.8 pg Normal 27.0-32.0 [facility] Comment on above: Performed By: #### L 500.4050, L503.6005, L300.3900, L501.3620, L501.5200, M200.1000, L100.0100, L501.4020, L300.4310 ####[facility] [address] [place], [address] MCHC (RBC) [Mass/Vol] 32.1 g/dL Normal 32-36 [facility] Comment on above: Performed By: #### L 500.4050, L503.6005, L300.3900, L501.3620, L501.5200, M200.1000, L100.0100, L501.4020, L300.4310 ####[facility] [address] [place], [address] MCV (RBC) [Entitic vol] 95.8 fL Normal 81-99 [facility] Comment on above: Performed By: #### L 500.4050, L503.6005, L300.3900, L501.3620, L501.5200, M200.1000, L100.0100, L501.4020, L300.4310 ####[facility] [address] [place], [address] Monocytes/100 WBC (Bld) 6.4 % Normal 0-10 [facility] Comment on above: Performed By: #### L 500.4050, L503.6005, L300.3900, L501.3620, L501.5200, M200.1000, L100.0100, L501.4020, L300.4310 ####[facility] [address] [place], [address] Neutrophils/100 WBC (Bld) 89.0 % High 47-70 [facility] Comment on above: Performed By: #### L 500.4050, L503.6005, L300.3900, L501.3620, L501.5200, M200.1000, L100.0100, L501.4020, L300.4310 ####[facility] [address] [place], [address] Nucleated RBC (Bld) [#/Vol] 0 10*3/uL Normal 0-5 [facility] Comment on above: Performed By: #### L 500.4050, L503.6005, L300.3900, L501.3620, L501.5200, M200.1000, L100.0100, L501.4020, L300.4310 ####[facility] [address] [place], [address] Platelet mean volume (Bld) [Entitic vol] 13.0 fL High 6.2-12.0 [facility] Comment on above: Performed By: #### L 500.4050, L503.6005, L300.3900, L501.3620, L501.5200, M200.1000, L100.0100, L501.4020, L300.4310 ####[facility] [address] [place], [address] Platelets (Bld) [#/Vol] 207 10*3/uL Normal 150-450 [facility] Comment on above: Performed By: #### L 500.4050, L503.6005, L300.3900, L501.3620, L501.5200, M200.1000, L100.0100, L501.4020, L300.4310 ####[facility] [address] [place], [address] RBC (Bld) [#/Vol] 3.77 10*6/uL Low 4.2-5.4 [facility] Comment on above: Performed By: #### L 500.4050, L503.6005, L300.3900, L501.3620, L501.5200, M200.1000, L100.0100, L501.4020, L300.4310 ####[facility] [address] [place], [place], [phone] RDW SD 55.3 fl High 35.1-43.9 [facility] Comment on above: Performed By: #### L 500.4050, L503.6005, L300.3900, L501.3620, L501.5200, M200.1000, L100.0100, L501.4020, L300.4310 ####[facility] [address] [place], [place], [phone] WBC (Bld) [#/Vol] 19.3 10*3/uL High 4.4-11.0 [facility] Comment on above: Performed By: #### L 500.4050, L503.6005, L300.3900, L501.3620, L501.5200, M200.1000, L100.0100, L501.4020, L300.4310 ####[facility] [address] [place], [place], [phone] CPK Total, Creatine Kinaseon 11-18-2023 CPK TOTAL 86 U/L Normal 26-192 [facility] Comment on above: Order Comment: 'TROP ' Serial specimen #1, #2 or #3: 1 Performed By: #### L 500.4050, L503.6005, L300.3900, L501.3620, L501.5200, M200.1000, L100.0100, L501.4020, L300.4310 ####[facility] [address] [place], [address] Chest 1 View (Portable)on Chest 1 View (Portable) Normal [facility] Chest 1 View (Portable) Normal [facility] Comprehensive Metabolic Prof ilon 11-18-2023 Albumin [Mass/Vol] 3.1 g/dL Low 3.2-5.0 [facility] Comment on above: Order Comment: 'TROP ' Serial specimen #1, #2 or #3: 1 Performed By: #### L 500.4050, L503.6005, L300.3900, L501.3620, L501.5200, M200.1000, L100.0100, L501.4020, L300.4310 ####[facility] [address] [place], [address] Albumin/Globulin [Mass ratio] 0.8 {ratio} Low 0.9-2.4 [facility] Comment on above: Order Comment: 'TROP ' Serial specimen #1, #2 or #3: 1 Performed By: #### L 500.4050, L503.6005, L300.3900, L501.3620, L501.5200, M200.1000, L100.0100, L501.4020, L300.4310 ####[facility] [address] [place], [address] ALK P 89 U/L Normal 45-117 [facility] Comment on above: Order Comment: 'TROP ' Serial specimen #1, #2 or #3: 1 Performed By: #### L 500.4050, L503.6005, L300.3900, L501.3620, L501.5200, M200.1000, L100.0100, L501.4020, L300.4310 ####[facility] [address] [place], [address] ALT [Catalytic activity/Vol] 24 U/L Normal 13-56 [facility] Comment on above: Order Comment: 'TROP ' Serial specimen #1, #2 or #3: 1 Performed By: #### L 500.4050, L503.6005, L300.3900, L501.3620, L501.5200, M200.1000, L100.0100, L501.4020, L300.4310 ####[facility] [address] [place], [address] AST [Catalytic activity/Vol] 25 U/L Normal 15-37 [facility] Comment on above: Order Comment: 'TROP ' Serial specimen #1, #2 or #3: 1 Performed By: #### L 500.4050, L503.6005, L300.3900, L501.3620, L501.5200, M200.1000, L100.0100, L501.4020, L300.4310 ####[facility] [address] [place], [address] Bilirubin [Mass/Vol] 0.60 mg/dL Normal 0.20-1.00 [facility] Comment on above: Order Comment: 'TROP ' Serial specimen #1, #2 or #3: 1 Result Comment: For patients on eltrombopag therapy, use of Dimension [place] TBIL is not recommended. Performed By: #### L 500.4050, L503.6005, L300.3900, L501.3620, L501.5200, M200.1000, L100.0100, L501.4020, L300.4310 ####[facility] [address] [place], [address] BUN/CRE 11.4 RATIO Normal 10-20 [facility] Comment on above: Order Comment: 'TROP ' Serial specimen #1, #2 or #3: 1 Performed By: #### L 500.4050, L503.6005, L300.3900, L501.3620, L501.5200, M200.1000, L100.0100, L501.4020, L300.4310 ####[facility] [address] [place], [address] CA,Total 8.1 mg/dL Low 8.5-10.1 [facility] Comment on above: Order Comment: 'TROP ' Serial specimen #1, #2 or #3: 1 Performed By: #### L 500.4050, L503.6005, L300.3900, L501.3620, L501.5200, M200.1000, L100.0100, L501.4020, L300.4310 ####[facility] [address] [place], [address] Chloride [Moles/Vol] 106 mmol/L Normal 98-107 [facility] Comment on above: Order Comment: 'TROP ' Serial specimen #1, #2 or #3: 1 Performed By: #### L 500.4050, L503.6005, L300.3900, L501.3620, L501.5200, M200.1000, L100.0100, L501.4020, L300.4310 ####[facility] [address] [place], [address] CO2 [Moles/Vol] 22.0 mmol/L Normal 21.0-32.0 [facility] Comment on above: Order Comment: 'TROP ' Serial specimen #1, #2 or #3: 1 Performed By: #### L 500.4050, L503.6005, L300.3900, L501.3620, L501.5200, M200.1000, L100.0100, L501.4020, L300.4310 ####[facility] [address] [place], [address] Creatinine [Mass/Vol] 6.40 mg/dL High 0.55-1.02 [facility] Comment on above: Order Comment: 'TROP ' Serial specimen #1, #2 or #3: 1 Result Comment: The validity of the calculated GFR GFRAA in patients over70 years has not been determined. Clinical correlation isessential. Performed By: #### L 500.4050, L503.6005, L300.3900, L501.3620, L501.5200, M200.1000, L100.0100, L501.4020, L300.4310 ####[facility] [address] [place], [place], [phone] ECRCL 11.44 ml/min Normal [facility] Comment on above: Order Comment: 'TROP ' Serial specimen #1, #2 or #3: 1 Performed By: #### L 500.4050, L503.6005, L300.3900, L501.3620, L501.5200, M200.1000, L100.0100, L501.4020, L300.4310 ####[facility] [address] [place], [place], [phone] EST GFR - AA 9 mL/min Low >60 [facility] Comment on above: Order Comment: 'TROP ' Serial specimen #1, #2 or #3: 1 Result Comment: Afri can [place]uvian GFR Calc Performed By: #### L 500.4050, L503.6005, L300.3900, L501.3620, L501.5200, M200.1000, L100.0100, L501.4020, L300.4310 ####[facility] [address] [place], [place], [phone] GAP 7 Normal 5-15 [facility] Comment on above: Order Comment: 'TROP ' Serial specimen #1, #2 or #3: 1 Performed By: #### L 500.4050, L503.6005, L300.3900, L501.3620, L501.5200, M200.1000, L100.0100, L501.4020, L300.4310 ####[facility] [address] [place], [place], [phone] GFR/1.73 sq M.predicted among non-blacks MDRD (S/P/Bld) [Vol rate/Area] 7 mL/min/{1.73_m2} Low >60 [facility] Comment on above: Order Comment: 'TROP ' Serial specimen #1, #2 or #3: 1 Result Comment: Non- GFR Calc Performed By: #### L 500.4050, L503.6005, L300.3900, L501.3620, L501.5200, M200.1000, L100.0100, L501.4020, L300.4310 ####[facility] [address] [place], [address] Globulin (S) [Mass/Vol] 3.8 g/dL Normal 2.2-4.2 [facility] Comment on above: Order Comment: 'TROP ' Serial specimen #1, #2 or #3: 1 Performed By: #### L 500.4050, L503.6005, L300.3900, L501.3620, L501.5200, M200.1000, L100.0100, L501.4020, L300.4310 ####[facility] [address] [place], [address] Glucose [Mass/Vol] 153 mg/dL High 74-106 [facility] Comment on above: Order Comment: 'TROP ' Serial specimen #1, #2 or #3: 1 Result Comment: Fast ing Glucose result greater than or equal to 126 mg/dLsuggests DIABETES MELLITUS per A.D.A. criteria. Performed By: #### L 500.4050, L503.6005, L300.3900, L501.3620, L501.5200, M200.1000, L100.0100, L501.4020, L300.4310 ####[facility] [address] [place], [address] Potassium [Moles/Vol] 5.4 mmol/L High 3.5-5.1 [facility] Comment on above: Order Comment: 'TROP ' Serial specimen #1, #2 or #3: 1 Performed By: #### L 500.4050, L503.6005, L300.3900, L501.3620, L501.5200, M200.1000, L100.0100, L501.4020, L300.4310 ####[facility] [address] [place], [address] Sodium [Moles/Vol] 135 mmol/L Low 136-145 [facility] Comment on above: Order Comment: 'TROP ' Serial specimen #1, #2 or #3: 1 Performed By: #### L 500.4050, L503.6005, L300.3900, L501.3620, L501.5200, M200.1000, L100.0100, L501.4020, L300.4310 ####[facility] [address] [place], [address] T PROT 6.9 g/dL Normal 6.4-8.2 [facility] Comment on above: Order Comment: 'TROP ' Serial specimen #1, #2 or #3: 1 Performed By: #### L 500.4050, L503.6005, L300.3900, L501.3620, L501.5200, M200.1000, L100.0100, L501.4020, L300.4310 ####[facility] [address] [place], [address] Urea nitrogen [Mass/Vol] 73 mg/dL High 7-18 [facility] Comment on above: Order Comment: 'TROP ' Serial specimen #1, #2 or #3: 1 Performed By: #### L 500.4050, L503.6005, L300.3900, L501.3620, L501.5200, M200.1000, L100.0100, L501.4020, L300.4310 ####[facility] [address] [place], [address] H AND P Exam - Hospitaliston 11-18-2023 H&P Exam - Hospitalist Normal [facility] L501.4020on 11-18-2023 TROPONIN-I HS 47 pg/mL Normal 3.0-54.0 [facility] Comment on above: Order Comment: Comme nts: SPECIMEN #2'TROP' Serial specimen #1, #2 or #3: 2 Result Comment: Plea se Note: New Test Units and Gender Specific Reference Ranges. For more information see Policy Stat Procedure [place] High Sensitivity Troponin (TNIH) and attachments. Performed By: #### L 501.4020 ####[facility] [address] [place], [place], [address] TROPONIN-I HS 47 pg/mL Normal 3.0-54.0 [facility] Comment on above: Order Comment: 'TROP ' Serial specimen #1, #2 or #3: 1 Result Comment: Plea se Note: New Test Units and Gender Specific Reference Ranges. For more information see Policy Stat Procedure [place] High Sensitivity Troponin (TNIH) and attachments. Performed By: #### L 500.4050, L503.6005, L300.3900, L501.3620, L501.5200, M200.1000, L100.0100, L501.4020, L300.4310 ####[facility] [address] [place], [place], [address] LABORATORYOrdered By: SYSTEM SYSTEM on 11-18-2023 Basophil, [...] ng/L Male: 0-76 ng/L Testing performed on [employer] using a homogeneous sandwich chemiluminescent immunoassay based on [employer] technology. Urea nitrogen [Mass/Vol] 81 mg/dL High 7 - 18 mg/dL AO ADM SS Urea nitrogen/Creatinine [Mass ratio] 13 ratio Normal 7 - 27 ratio AO ADM SS WBC (Bld) [#/Vol] 12.2 103/mcL High 4.6 - 10.8 10^3/mcL AO Workflow SS Lactic Acidon 11-18-2023 Lactate [Moles/Vol] 1.3 mmol/L Normal 0.4-1.9 [facility] Comment on above: Order Comment: Comme nts: if result >2, system reflex orders 2nd test @ 4hrsY Performed By: #### L 500.4050, L503.6005, L300.3900, L501.3620, L501.5200, M200.1000, L100.0100, L501.4020, L300.4310 ####[facility] [address] [place], [place], [phone] M100.678on 11-18-2023 M100.678 Pending SARS-CoV-2 (COVID 19) Negative INFLUENZA A Negative INFLUENZA B Negative RSV PCR Negative Normal [facility] Comment on above: Performed By: #### M 100.678 ####[facility] [address] [place], [place], [phone] Magnesiumon 11-18-2023 Magnesium [Mass/Vol] 2.2 mg/dL Normal 1.6-2.6 [facility] Comment on above: Order Comment: 'TROP ' Serial specimen #1, #2 or #3: 1 Performed By: #### L 500.4050, L503.6005, L300.3900, L501.3620, L501.5200, M200.1000, L100.0100, L501.4020, L300.4310 ####[facility] [address] [place], [place], [address] No Panel Informationon 11-17 Microscopic examination of blood, culture Culture has been received in lab and is no growth to date. Routine cultures are held for 5 days. [facility] Work Phone: PBNPon 11-18-2023 Natriuretic peptide B (Bld) [Mass/Vol] 5757 pg/mL High 0-125 [facility] ([place]) Comment on above: Result Comment: NT-p roBNP results of less than 300 pg/mL effectively rules out acute congestive heart failure with 99% negative predictive value. Performed By: #### L IPID, CBC, CMP, ADIFF, GFR, ANEU, TSH #### [facility] [address] [place], [place] [address] Partial Thromboplast Timeon 11-18-2023 aPTT Coag (Bld) [Time] 27.0 s Normal 24.1-36.2 [facility] Comment on above: Performed By: #### L 500.4050, L503.6005, L300.3900, L501.3620, L501.5200, M200.1000, L100.0100, L501.4020, L300.4310 ####[facility] [address] [facility] [address] [place], [place], [phone] Prothrombin Time w/INRon INR Coag (PPP) [Relative time] 1.1 {INR} Normal [facility] Comment on above: Performed By: #### L 500.4050, L503.6005, L300.3900, L501.3620, L501.5200, M200.1000, L100.0100, L501.4020, L300.4310 ####[facility] [address] [facility] [address] [place], [place], [phone] PT Coag (PPP) [Time] 14.0 s Normal 11.7-14.9 [facility] Comment on above: Performed By: #### L 500.4050, L503.6005, L300.3900, L501.3620, L501.5200, M200.1000, L100.0100, L501.4020, L300.4310 ####[facility] [address] [place], [address] RESPIRATORY PANEL MOLECULARo n 11-18-2023 RP PANEL Normal [facility] Comment on above: Performed By: #### M 100.638 ####[facility] [address] [place], [address] TROPHSon 11-18-2023 High Sensitivity Troponin I 29 ng/L Normal 0-51 [facility] ([place]) Comment on above: Result Comment: High Sensitive Troponin I Reference Ranges: Female: 0-51 ng/L Male: 0-76 ng/L Testing performed on [employer] using a homogeneous sandwich chemiluminescent immunoassay based on [employer] technology. Performed By: #### L IPID, CBC, CMP, ADIFF, GFR, ANEU, TSH #### [place] [id number] [place], [place] [address] XR CHEST 2 VIEWSon 4 XR CHEST [...] PM Ordering Provider: EVELINA Self [facility] ([place]) MA MAMMOGRAM SCREENING BILAT ULISSESL W/TOMOon 11-06-2023 MA MAMMOGRAM SCREENING BILATERAL W/JULIEN ORIGINAL FROM: [facility] [address] [place], [place] [address] PROCEDURE FOR: ZAYDA DAVIS [address] [place] [address] Home: PID#: [id number] Exam#: [id number] : 1965 Age: 57 TO: DENISSE SUTTON [facility] [address] [place] [address] Fax: NO FAX EXAMINATION: SCREENING DIGITAL BILATERAL [...] Continued screening with annual mammograms is recommended. Carmen Liuzick risk calculations, generated with the history provided, [...] addition to annual mammographic screening per the [place] [employer]. BIRADS: BI-RADS: 2: Benign RECALL: [...] YEARS AGO, BUT IS UNSURE OF LOCATION. 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 letter sent: Normal BI-RADS 1 and 2 Mammogram BI-RADS: 2 Benign Normal [facility] ([place]) XR TIBIA/FIBULA 2 VIEWS LEFT on 10-11-2023 [...] PM Ordering Provider: FREDDIE Self [facility] ([place]) LABORATORYOrdered By: Leandro Dobson on 10-09-2023 Glucose [Mass/Vol] 211 mg/dL High 70 - 110 mg/dL [facility] Work Phone: HbA1c (Bld) [Mass fraction] 6.5 % [facility] Work Phone: Lab Performed By Leandro Dobson PharmD [facility] Work Phone: BRIEF OP NOTon 09-08-2023 BRIEF OP NOT HNO ID: [id number] Author: JEREMY AGUIRRE MD Service: Interventional Radiology Author Type: Physician Type: Brief Op Note Filed: 09/08/2023 10:33 Note Text: BRIEF OPERATIVE / PROCEDURE NOTE LOG ID: [id number] SURGERY/PROCEDURE DATE: 09/08/2023 INCISION/PROCEDURE START TIME: 10:26 AM INCISION CLOSE/PROCEDURE END TIME: SURGEON(S)/PROCEDURALIST (S) AND DIMENSION MILL WORKER(S): Surgeon(s) and Role: * Jeremy Aguirre MD, MD - Primary No Additional Staff SURGERY/PROCEDURE(S): Removal of tunneled dialysis catheter ANESTHESIA: Local FINDINGS: Successful removal ESTIMATED BLOOD LOSS: Minimal SPECIMENS: None COMPLICATIONS: None CLOSURE TECHNIQUE: Primary PRE-OP/PRE-PROCEDURE DIAGNOSIS: Renal failure POST-OP/POST-PROCEDURE DIAGNOSIS: Same as Preop SIGNATURE: Jeremy Aguirre MD PATIENT NAME: Zayda Davis DATE: September 08, 2023 TIME: 10:32 AM [facility] IR CVC TUNNEL W/PORT REMOVEo n 09-08-2023 IR CVC TUNNEL W/PORT REMOVE * * *Final Report* * * DATE OF EXAM: Sep 08 2023 10:32AM [facility] 7473 - IR CVC TUNNEL W/PORT REMOVE [...] performed by the: attending radiologist, without an stonecutter assistant. The attending radiologist performed the following procedural activities: Entire procedure IMPRESSION: REMOVAL OF RIGHT-SIDED TUNNELED DIALYSIS CATHETER. Plan: Please re-consult interventional radiology if new catheter placement is desired. Attestation Signer name: Jeremy Aguirre MD I attest that I was present for the entire procedure. I reviewed the stored images and agree with the report as written. Transportation Lead: PSC[employer] Transcribe Date/Time: Sep 10 2023 9:55A Dictated by : JEREMY AGUIRRE MD This examination was interpreted and the report reviewed and electronically signed by: JEREMY AGUIRRE MD on Sep 10 2023 9:58AM EST [id number] Normal [facility] .Auto Diffon 09-02-2023 Basophil, Absolute 0.0 10 3/mcL Normal 0.0-0.2 [facility] ([place]) Comment on above: Performed By: #### L IPID, CBC, CMP, ADIFF, GFR, ANEU, TSH #### [address] [address] Basophils/100 WBC (Bld) 0.6 % Normal 0.0-2.5 [facility] ([place]) Comment on above: Performed By: #### L IPID, CBC, CMP, ADIFF, GFR, ANEU, TSH #### [address] [address] Eosinophil, Absolute 0.2 10 3/mcL Normal 0.0-0.4 [facility] ([place]) Comment on above: Performed By: #### L IPID, CBC, CMP, ADIFF, GFR, ANEU, TSH #### [address] [address] Eosinophils/100 WBC (Bld) 3.5 % Normal 0.0-7.0 [facility] ([place]) Comment on above: Performed By: #### L IPID, CBC, CMP, ADIFF, GFR, ANEU, TSH #### [address] [address] Lymphocyte, Absolute 0.8 10 3/mcL Normal 0.8-3.9 [facility] ([place]) Comment on above: Performed By: #### L IPID, CBC, CMP, ADIFF, GFR, ANEU, TSH #### [address] [address] Lymphocytes/100 WBC (Bld) 12.1 % Normal 10.0-50.0 [facility] ([place]) Comment on above: Performed By: #### L IPID, CBC, CMP, ADIFF, GFR, ANEU, TSH #### [address] [address] Monocyte, Absolute 0.7 10 3/mcL Normal 0.2-1.0 [facility] ([place]) Comment on above: Performed By: #### L IPID, CBC, CMP, ADIFF, GFR, ANEU, TSH #### [address] [address] Monocytes/100 WBC (Bld) 9.9 % Normal 1.7-13.0 [facility] ([place]) Comment on above: Performed By: #### L IPID, CBC, CMP, ADIFF, GFR, ANEU, TSH #### [address] [address] Neutrophils/100 WBC (Bld) 73.9 % Normal 37.0-80.0 [facility] ([place]) Comment on above: Performed By: #### L IPID, CBC, CMP, ADIFF, GFR, ANEU, TSH #### [address] [address] .GFRon 09-02-2023 GFR 12 ml/min/1.73sqm Normal [facility] ([place]) Comment on above: Result Comment: GFR Population [...] CBC, CMP, ADIFF, GFR, ANEU, TSH #### [address] [address] GFR Non- 10 ml/min/1.73sqm Normal [facility] ([place]) Comment on above: Result Comment: GFR Population [...] CBC, CMP, ADIFF, GFR, ANEU, TSH #### [address] [address] .NEUABSon 09-02-2023 Neutrophil, Absolute 4.9 10 3/mcL Normal 2.9-6.2 [facility] ([place]) Comment on above: Performed By: #### L IPID, CBC, CMP, ADIFF, GFR, ANEU, TSH #### [address] [address] CBCon 09-02-2023 Erythrocyte distribution width (RBC) [Ratio] 17.8 % High 11.5-14.5 [facility] ([place]) Comment on above: Performed By: #### L IPID, CBC, CMP, ADIFF, GFR, ANEU, TSH #### [address] [address] Hematocrit (Bld) [Volume fraction] 37.8 % Normal 37.0-47.0 [facility] ([place]) Comment on above: Performed By: #### L IPID, CBC, CMP, ADIFF, GFR, ANEU, TSH #### [place] [id number] Hgb 12.5 G/dL Normal 12.0-16.0 [facility] ([place]) Comment on above: Performed By: #### L IPID, CBC, CMP, ADIFF, GFR, ANEU, TSH #### [address] [address] MCH (RBC) [Entitic mass] 32.4 pg High 27.0-31.2 [facility] ([place]) Comment on above: Performed By: #### L IPID, CBC, CMP, ADIFF, GFR, ANEU, TSH #### [address] [address] MCHC 33.1 G/dL Normal 33.0-37.0 [facility] ([place]) Comment on above: Performed By: #### L IPID, CBC, CMP, ADIFF, GFR, ANEU, TSH #### [address] [address] MCV (RBC) [Entitic vol] 98.0 fL High 80.0-94.0 [facility] ([place]) Comment on above: Performed By: #### L IPID, CBC, CMP, ADIFF, GFR, ANEU, TSH #### [address] [address] Platelet 163 10 3/mcL Normal 130-400 [facility] ([place]) Comment on above: Performed By: #### L IPID, CBC, CMP, ADIFF, GFR, ANEU, TSH #### [address] [address] Platelet mean volume (Bld) [Entitic vol] 10.8 fL High 7.4-10.4 [facility] ([place]) Comment on above: Performed By: #### L IPID, CBC, CMP, ADIFF, GFR, ANEU, TSH #### [address] [address] RBC 3.86 10 6/mcL Low 4.20-5.40 [facility] ([place]) Comment on above: Performed By: #### L IPID, CBC, CMP, ADIFF, GFR, ANEU, TSH #### [address] [address] WBC 6.6 10 3/mcL Normal 4.6-10.8 [facility] ([place]) Comment on above: Performed By: #### L IPID, CBC, CMP, ADIFF, GFR, ANEU, TSH #### [address] [address] CMPon 09-02-2023 Albumin Level 3.5 G/dL Normal 3.5-5.0 [facility] ([place]) Comment on above: Performed By: #### L IPID, CBC, CMP, ADIFF, GFR, ANEU, TSH #### [address] [address] Albumin/Globulin [Mass ratio] 1.1 {ratio} Normal 1.1-2.5 [facility] ([place]) Comment on above: Performed By: #### L IPID, CBC, CMP, ADIFF, GFR, ANEU, TSH #### [address] [address] ALP [Catalytic activity/Vol] 94 U/L Normal 40-135 [facility] ([place]) Comment on above: Performed By: #### L IPID, CBC, CMP, ADIFF, GFR, ANEU, TSH #### [address] [address] ALT [Catalytic activity/Vol] 37 U/L Normal 14-59 [facility] ([place]) Comment on above: Performed By: #### L IPID, CBC, CMP, ADIFF, GFR, ANEU, TSH #### [address] [address] AST [Catalytic activity/Vol] 28 U/L Normal 10-40 [facility] ([place]) Comment on above: Performed By: #### L IPID, CBC, CMP, ADIFF, GFR, ANEU, TSH #### [address] [address] Bili Total 0.6 mg/dL Normal 0.2-1.0 [facility] ([place]) Comment on above: Result Comment: Use of this assay is not recommended for patients undergoing treatment with eltrombopag due to the potential for falsely elevated results. Performed By: #### L IPID, CBC, CMP, ADIFF, GFR, ANEU, TSH #### [address] [address] BUN/Creatinine Ratio 8 ratio Normal 7-27 [facility] ([place]) Comment on above: Performed By: #### L IPID, CBC, CMP, ADIFF, GFR, ANEU, TSH #### [address] [address] Calcium [Mass/Vol] 8.2 mg/dL Low 8.4-10.2 [facility] ([place]) Comment on above: Performed By: #### L IPID, CBC, CMP, ADIFF, GFR, ANEU, TSH #### [address] [address] Chloride [Moles/Vol] 104 mmol/L Normal 98-107 [facility] ([place]) Comment on above: Performed By: #### L IPID, CBC, CMP, ADIFF, GFR, ANEU, TSH #### [address] [address] CO2 [Moles/Vol] 30 mmol/L High 22-29 [facility] ([place]) Comment on above: Performed By: #### L IPID, CBC, CMP, ADIFF, GFR, ANEU, TSH #### [address] [address] Creatinine [Mass/Vol] 4.66 mg/dL High 0.55-1.02 [facility] ([place]) Comment on above: Performed By: #### L IPID, CBC, CMP, ADIFF, GFR, ANEU, TSH #### [address] [address] Electrolyte Balance 9.0 mEq/L Normal 4.0-15.0 [facility] ([place]) Comment on above: Performed By: #### L IPID, CBC, CMP, ADIFF, GFR, ANEU, TSH #### [address] [address] Globulin 3.2 G/dL Normal [facility] ([place]) Comment on above: Performed By: #### L IPID, CBC, CMP, ADIFF, GFR, ANEU, TSH #### [address] [address] Glucose [Mass/Vol] 92 mg/dL Normal 70-105 [facility] ([place]) Comment on above: Performed By: #### L IPID, CBC, CMP, ADIFF, GFR, ANEU, TSH #### [address] [address] Potassium [Moles/Vol] 4.8 mmol/L Normal 3.5-5.1 [facility] ([place]) Comment on above: Performed By: #### L IPID, CBC, CMP, ADIFF, GFR, ANEU, TSH #### [address] [address] Sodium [Moles/Vol] 143 mmol/L Normal 136-145 [facility] ([place]) Comment on above: Performed By: #### L IPID, CBC, CMP, ADIFF, GFR, ANEU, TSH #### [address] [address] Total Protein 6.7 G/dL Normal 6.4-8.2 [facility]) Comment on above: Performed By: #### L IPID, CBC, CMP, ADIFF, GFR, ANEU, TSH #### [address] [address] Urea nitrogen [Mass/Vol] 36 mg/dL High 7-18 [facility] ([place]) Comment on above: Performed By: #### L IPID, CBC, CMP, ADIFF, GFR, ANEU, TSH #### [address] [address] LABORATORYOrdered By: SYSTEM SYSTEM on 09-02-2023 Albumin [...] 09-02-2023 Cholesterol [Mass/Vol] 103 mg/dL Normal 0-200 [facility] ([place]) Comment on above: Result Comment: Chol esterol Reference Interval: Less than 200 Desirable 200-239 Borderline high risk 240 and above High risk Performed By: #### L IPID, CBC, CMP, ADIFF, GFR, ANEU, TSH #### [address] [address] Cholesterol in HDL [Mass/Vol] 41 mg/dL Normal 40-60 [facility] ([place]) Comment on above: Performed By: #### L IPID, CBC, CMP, ADIFF, GFR, ANEU, TSH #### [address] [address] Cholesterol in LDL [Mass/Vol] 40 mg/dL Normal 0-130 [facility] ([place]) Comment on above: Performed By: #### L IPID, CBC, CMP, ADIFF, GFR, ANEU, TSH #### [address] [address] Triglyceride [Mass/Vol] 112 mg/dL Normal 0-150 [facility] ([place]) Comment on above: Result Comment: Trig lyceride Reference Interval: Less than 150 Normal 150-199 Borderline high risk 200-499 High risk 500 or higher Very high risk Performed By: #### L IPID, CBC, CMP, ADIFF, GFR, ANEU, TSH #### [address] [address] TSHon 09-02-2023 TSH Qn 2.61 m[IU]/L Normal 0.36-3.74 [facility] ([place]) Comment on above: Performed By: #### L IPID, CBC, CMP, ADIFF, GFR, ANEU, TSH #### [place] [id number] LABORATORYOrdered By: Erlinda Mcclain on 06-08-2023 HbA1c (Bld) [Mass fraction] 6.2 % [facility] Work Phone: Lab Performed By Tasha Mcclain PharmD [facility] Work Phone: Lab Performing Location [facility] Work Phone: Rosalina 04-30-2023 U Creatinine 195.8 mg/dL High 28.0-117.0 [facility] ([place]) Comment on above: Performed By: #### M ALBR #### [facility] [address] [place], [place] [address] U Microalb >[address] Normal [facility] ([place]) Comment on above: Performed By: #### M ALBR #### [facility] [address] [place], [place] [address] U Ratio Alb/Cre Unable to Calculate Normal 0-30 [facility] ([place]) Comment on above: Result Comment: Unab le to calculate this test result accurately. Results used to calculate this test are outside the reportable range. Performed By: #### M ALBR #### [facility] [address] [place], [place] [address] LABORATORYOrdered By: Alyse Song on 04-29-2023 Albumin [...] smear with manual screening 198 mg/dL 74-106 [facility] Comment on above: MANAGEMENT OF PATIEN T CARE PER NURSING PROTOCOL Basophil percentageOrdered B y: Cipriano Trujillo on 04-24-2023 Chloride [Moles/Vol] 104 mmol/L 98-107 [facility] Glucose [Mass/Vol] 181 mg/dL 74-106 [facility] Comment on above: Fasting Glucose resu lt greater than or equal to 126 mg/dL suggests DIABETES MELLITUS per A.D.A. criteria. Hemoglobin (Bld) [Mass/Vol] 10.9 g/dL 12.0-15.0 [facility] Potassium [Moles/Vol] 4.8 mmol/L 3.5-5.1 [facility] Sodium [Moles/Vol] 137 mmol/L 136-145 [facility] WBC (Bld) [#/Vol] 6.7 10*3/uL 4.4-11.0 [facility] Determination of erythrocyte mean corpuscular volume (MCV)Ordered By: Cipriano Trujillo on 04-24-2023 MCV (RBC) [Entitic vol] 95.9 fL 81-99 [facility] Erythrocyte distribution wid th ratioOrdered By: Cipriano Trujillo on 04-24-2023 Erythrocyte distribution width (RBC) [Ratio] 14.1 % 11.6-14.6 [facility] Erythrocyte distribution wid th standard deviationOrdered By: Cipriano Trujillo on 04-24-2023 Erythrocyte distribution width (RBC) [Entitic vol] 49.1 fL 35.1-43.9 [facility] Hematocrit Auto (Bld) [Volum e fraction]Ordered By: Cipriano Trujillo on 04-24-2023 Hematocrit (Bld) [Volume fraction] 33.1 % 37-47 [facility] Laboratory - Chemistry and C hemistry - challengeOrdered By: Cipriano Trujillo on 04-24-2023 CO2 [Moles/Vol] 27.0 mmol/L 21.0-32.0 [facility] Urea nitrogen/Creatinine [Mass ratio] 9.6 mg/mg 10-20 [facility] Laboratory - Hematology and Cell countsOrdered By: Cipriano Trujillo on 04-24-2023 MCH (RBC) [Entitic mass] 31.6 pg 27.0-32.0 [facility] MCHC (RBC) [Mass/Vol] 32.9 g/dL 32-36 [facility] Platelets (Bld) [#/Vol] 165 10*3/uL 150-450 [facility] No Panel InformationOrdered By: Cipriano Trujillo on 04-24-2023 Estimated GFR (MDRD) Amer 9 mL/min >60 [facility] Comment on above: GFR Calc Estimated GFR (MDRD) Non-Af Amer 8 mL/min >60 [facility] Comment on above: Non- GFR Calc Platelet mean volume Justo-Ec ker (Bld) [Entitic vol]Ordered By: Cipriano Trujillo on 04-24-2023 Platelet mean volume (Bld) [Entitic vol] 12.5 fL 6.2-12.0 [facility] RBC Auto (Bld) [#/Vol]Ordere d By: Cipriano Trujillo on 04-24-2023 RBC (Bld) [#/Vol] 3.45 10*6/uL 4.2-5.4 [facility] Serum or plasma calcium brody urement (mass/volume)Ordered By: Cipriano Trujillo on 04-24-2023 Calcium [Mass/Vol] 9.0 mg/dL 8.5-10.1 [facility] Serum or plasma creatinine m easurement (mass/volume)Ordered By: Cipriano Trujillo on 04-24-2023 Creatinine [Mass/Vol] 6.04 mg/dL 0.55-1.02 [facility] Comment on above: The validity of the calculated GFR & GFRAA in patients over 70 years has not been determined. Clinical correlation is essential. Serum or plasma urea nitroge n measurement (mass/volume)Ordered By: Cipriano Trujillo on 04-24-2023 Urea nitrogen [Mass/Vol] 58 mg/dL 7-18 [facility] Thin prep Papanicolaou smear with manual screeningOrdered By: Cipriano Trujillo on 04-24-2023 Thin prep Papanicolaou smear with manual screening 6 5-15 [facility] Glucose Glucometer (BldC) [M ass/Vol]Ordered By: Cipriano Trujillo on 04-07-2023 Glucose [Mass/Vol] 161 mg/dL 74-106 [facility] Comment on above: MANAGEMENT OF PATIEN T CARE PER NURSING PROTOCOL Basophil percentageOrdered B y: Cipriano Trujillo on 04-02-2023 Chloride [Moles/Vol] 106 mmol/L 98-107 [facility] Glucose [Mass/Vol] 80 mg/dL 74-106 [facility] Potassium [Moles/Vol] 4.6 mmol/L 3.5-5.1 [facility] Sodium [Moles/Vol] 142 mmol/L 136-145 [facility] WBC (Bld) [#/Vol] 5.3 10*3/uL 4.4-11.0 [facility] Blood erythrocytes count (nu mber/volume)Ordered By: Cipriano Trujillo on 04-02-2023 RBC (Bld) [#/Vol] 3.56 10*6/uL 4.2-5.4 [facility] Blood hemoglobin measurement (mass/volume)Ordered By: Cipriano Trujillo on 04-02-2023 Hemoglobin (Bld) [Mass/Vol] 11.1 g/dL 12.0-15.0 [facility] Blood platelet mean volumeOr dered By: Cipriano Trujillo on 04-02-2023 Platelet mean volume (Bld) [Entitic vol] 12.8 fL 6.2-12.0 [facility] Determination of erythrocyte mean corpuscular volume (MCV)Ordered By: Cipriano Trujillo on 04-02-2023 MCV (RBC) [Entitic vol] 98.3 fL 81-99 [facility] Hematocrit Auto (Bld) [Volum e fraction]Ordered By: Cipriano Trujillo on 04-02-2023 Hematocrit (Bld) [Volume fraction] 35.0 % 37-47 [facility] Laboratory - Chemistry and C hemistry - challengeOrdered By: Cipriano Trujillo on 04-02-2023 CO2 [Moles/Vol] 31.0 mmol/L 21.0-32.0 [facility] Urea nitrogen/Creatinine [Mass ratio] 7.9 mg/mg 10-20 [facility] Laboratory - Hematology and Cell countsOrdered By: Cipriano Trujillo on 04-02-2023 Erythrocyte distribution width (RBC) [Entitic vol] 52.9 fL 35.1-43.9 [facility] Erythrocyte distribution width (RBC) [Ratio] 14.6 % 11.6-14.6 [facility] MCH (RBC) [Entitic mass] 31.2 pg 27.0-32.0 [facility] MCHC Auto (RBC) [Mass/Vol]Or dered By: Cipriano Trujillo on 04-02-2023 MCHC (RBC) [Mass/Vol] 31.7 g/dL 32-36 [facility] No Panel InformationOrdered By: Cipriano Trujillo on 04-02-2023 Estimated GFR (MDRD) Amer 14 mL/min >60 [facility] Comment on above: GFR Calc Estimated GFR (MDRD) Non-Af Amer 11 mL/min >60 [facility] Comment on above: Non- GFR Calc Platelets bldOrdered By: Betty Trujillo on 04-02-2023 Platelets (Bld) [#/Vol] 160 10*3/uL 150-450 [facility] Serum or plasma calcium brody urement (mass/volume)Ordered By: Cipriano Trujillo on 04-02-2023 Calcium [Mass/Vol] 8.4 mg/dL 8.5-10.1 [facility] Serum or plasma creatinine m easurement (mass/volume)Ordered By: Cipriano Trujillo on 04-02-2023 Creatinine [Mass/Vol] 4.29 mg/dL 0.55-1.02 [facility] Comment on above: The validity of the calculated GFR & GFRAA in patients over 70 years has not been determined. Clinical correlation is essential. Serum or plasma urea nitroge n measurement (mass/volume)Ordered By: Cipriano Trujillo on 04-02-2023 Urea nitrogen [Mass/Vol] 34 mg/dL 7-18 [facility] Thin prep Papanicolaou smear with manual screeningOrdered By: Cipriano Trujillo on 04-02-2023 Thin prep Papanicolaou smear with manual screening 5 5-15 [facility] Basophil percentageOrdered B y: Cipriano Trujillo on 01-22-2023 Chloride [Moles/Vol] 106 mmol/L 98-107 [facility] Glucose [Mass/Vol] 127 mg/dL 74-106 [facility] Comment on above: Fasting Glucose resu lt greater than or equal to 126 mg/dL suggests DIABETES MELLITUS per A.D.A. criteria. Potassium [Moles/Vol] 4.9 mmol/L 3.5-5.1 [facility] Sodium [Moles/Vol] 141 mmol/L 136-145 [facility] WBC (Bld) [#/Vol] 7.5 10*3/uL 4.4-11.0 [facility] Blood erythrocytes count (nu mber/volume)Ordered By: Cipriano Trujillo on 01-22-2023 RBC (Bld) [#/Vol] 3.42 10*6/uL 4.2-5.4 [facility] Blood hemoglobin measurement (mass/volume)Ordered By: Cipriano Trujillo on 01-22-2023 Hemoglobin (Bld) [Mass/Vol] 10.9 g/dL 12.0-15.0 [facility] Blood platelet mean volumeOr dered By: Cipriano Trujillo on 01-22-2023 Platelet mean volume (Bld) [Entitic vol] 11.6 fL 6.2-12.0 [facility] Determination of erythrocyte mean corpuscular volume (MCV)Ordered By: Cipriano Trujillo on 01-22-2023 MCV (RBC) [Entitic vol] 101.8 fL 81-99 [facility] Hematocrit Auto (Bld) [Volum e fraction]Ordered By: Cipriano Trujillo on 01-22-2023 Hematocrit (Bld) [Volume fraction] 34.8 % 37-47 [facility] Laboratory - Chemistry and C hemistry - challengeOrdered By: Cipriano Trujillo on 01-22-2023 CO2 [Moles/Vol] 28.0 mmol/L 21.0-32.0 [facility] Urea nitrogen/Creatinine [Mass ratio] 12.0 mg/mg 10-20 [facility] Laboratory - Hematology and Cell countsOrdered By: Cipriano Trujillo on 01-22-2023 Erythrocyte distribution width (RBC) [Entitic vol] 57.2 fL 35.1-43.9 [facility] Erythrocyte distribution width (RBC) [Ratio] 15.6 % 11.6-14.6 [facility] MCH (RBC) [Entitic mass] 31.9 pg 27.0-32.0 [facility] MCHC Auto (RBC) [Mass/Vol]Or dered By: Cipriano Trujillo on 01-22-2023 MCHC (RBC) [Mass/Vol] 31.3 g/dL 32-36 [facility] No Panel InformationOrdered By: Cipriano Trujillo on 01-22-2023 Estimated GFR (MDRD) Amer 8 mL/min >60 [facility] Comment on above: GFR Calc Estimated GFR (MDRD) Non-Af Amer 7 mL/min >60 [facility] Comment on above: Non- GFR Calc Platelets bldOrdered By: Betty Trujillo on 01-22-2023 Platelets (Bld) [#/Vol] 153 10*3/uL 150-450 [facility] Serum or plasma calcium brody urement (mass/volume)Ordered By: Cipriano Trujillo on 01-22-2023 Calcium [Mass/Vol] 8.2 mg/dL 8.5-10.1 [facility] Serum or plasma creatinine m easurement (mass/volume)Ordered By: Cipriano Trujillo on 01-22-2023 Creatinine [Mass/Vol] 6.85 mg/dL 0.55-1.02 [facility] Comment on above: The validity of the calculated GFR & GFRAA in patients over 70 years has not been determined. Clinical correlation is essential. Serum or plasma urea nitroge n measurement (mass/volume)Ordered By: Cipriano Trujillo on 01-22-2023 Urea nitrogen [Mass/Vol] 82 mg/dL 10-14 [facility] Thin prep Papanicolaou smear with manual screeningOrdered By: Cipriano Trujillo on 01-22-2023 Thin prep Papanicolaou smear with manual screening 7 08-11 [facility] LABORATORYOrdered By: Jazzmine Basilio on 11-18-2022 Glucose [Mass/Vol] 140 mg/dL Invalid Interpretation Code 70 - 110 mg/dL [facility] Work Phone: LABORATORYOrdered By: Jakub Anderson on 10-24-2022 Blood Glucose Testing Reason Routine (10/24/22 4:04 PM) [facility] Work Phone: Glucose [Mass/Vol] 185 mg/dL Invalid Interpretation Code 70 - 110 mg/dL [facility] Work Phone: LABORATORYOrdered By: Jerrell Schmidt on 10-24-2022 Blood Glucose Testing Reason Routine (10/24/22 11:39 AM) [facility] Work Phone: Glucose [Mass/Vol] 154 mg/dL Invalid Interpretation Code 70 - 110 mg/dL [facility] Work Phone: Blood Glucose Testing Reason Routine (10/24/22 8:31 AM) [facility] Work Phone: Glucose [Mass/Vol] 152 mg/dL Invalid Interpretation Code 70 - 110 mg/dL [facility] Work Phone: LABORATORYOrdered By: SYSTEM SYSTEM on 10-24-2022 Basophils (Bld) [#/Vol] 0.0 103/mcL Invalid Interpretation Code 0.0 - 0.3 10^3/mcL Workflow SS Basophils/100 WBC (Bld) 0.0 % Invalid Interpretation Code 0.0 - 2.5 % AH Workflow SS Calcium [Mass/Vol] 8.3 mg/dL Invalid [...] mEq/L AH ADM SS Eosinophils (Bld) [#/Vol] 0.3 103/mcL Invalid Interpretation Code 0.0 - 0.7 10^3/mcL AH Workflow SS Eosinophils/100 WBC (Bld) 4.0 % Invalid Interpretation Code 0.0 - 6.0 % AH Workflow SS Erythrocyte distribution width (RBC) [Ratio] 15.5 % Invalid Interpretation Code 11.5 - 15.5 % AH Workflow SS GFR/1.73 sq M.predicted among blacks MDRD (S/P/Bld) [Vol rate/Area] 12 ml/min/1.73sqm Invalid Interpretation Code AH ADM SS Comment on above: Interpretive Data: GFR Population [...] [Vol rate/Area] 10 ml/min/1.73sqm Invalid Interpretation Code ADM SS Comment on above: Interpretive Data: GFR Population [...] mg/dL ADM SS Hematocrit (Bld) [Volume fraction] 29.7 % Invalid Interpretation Code 34.0 - 46.0 % Workflow SS Hemoglobin (Bld) [Mass/Vol] 9.9 G/dL Invalid Interpretation Code 12.0 - 16.0 G/dL AH Workflow SS Lymphocytes (Bld) [#/Vol] 0.7 103/mcL Invalid Interpretation Code 0.9 - 4.3 10^3/mcL AH Workflow SS Lymphocytes/100 WBC (Bld) 11.0 % Invalid Interpretation Code 20.0 - 40.0 % Workflow SS MCH (RBC) [Entitic mass] 31.9 pg Invalid Interpretation Code 27.0 - 33.0 pg Workflow SS MCHC 33.5 G/dL Invalid Interpretation Code 32.0 - 36.0 G/dL AH Workflow SS MCV (RBC) [Entitic vol] 95.4 fL Invalid Interpretation Code 80.0 - 99.0 fL Workflow SS Monocytes (Bld) [#/Vol] 1.3 103/mcL [...] *NA* (10/24/22 6:32 AM) Invalid Interpretation Code Workflow SS Potassium [Moles/Vol] 4.8 mmol/L Invalid Interpretation Code 3.5 - 5.0 mEq/L AH ADM SS Comment on above: Result Comment: Spec imen slightly hemolyzed. RBC (Bld) [#/Vol] 3.11 106/mcL Invalid Interpretation Code 4.10 - 5.30 10^6/mcL AH Workflow SS RBC morphology finding Nom (Bld) See Below 2 *NA* (10/24/22 6:32 AM) Invalid Interpretation Code Workflow SS Comment on above: Result Comment: [...] Invalid Interpretation Code 38 - 126 U/L AH ADM SS ALT No additional P-5'-P [Catalytic activity/Vol] 57 U/L Invalid Interpretation Code 10 - 49 U/L AH ADM SS AST [Catalytic activity/Vol] 59 U/L Invalid Interpretation Code 8 - 34 U/L ADM SS Basophils (Bld) [#/Vol] 0.0 103/mcL Invalid Interpretation Code 0.0 - 0.3 10^3/mcL Workflow SS Basophils/100 WBC (Bld) 0.6 % Invalid Interpretation Code 0.0 - 2.5 % Workflow SS Bilirubin [Mass/Vol] 0.30 mg/dL Invalid Interpretation Code 0.20 - 1.20 mg/dL ADM SS Comment on above: Interpretive Data: [...] - 32 mEq/L ADM SS Creatinine [Mass/Vol] 3.92 mg/dL Invalid Interpretation Code 0.50 - 1.20 mg/dL ADM SS Electrolyte Balance 10.0 mEq/L Invalid Interpretation Code 4.0 - 15.0 mEq/L ADM SS Eosinophils (Bld) [#/Vol] 0.2 103/mcL Invalid Interpretation Code 0.0 - 0.7 10^3/mcL Workflow SS Eosinophils/100 WBC (Bld) 3.1 % Invalid Interpretation Code 0.0 - 6.0 % Workflow SS Erythrocyte distribution width (RBC) [Ratio] 15.5 % Invalid Interpretation Code 11.5 - 15.5 % Workflow SS GFR/1.73 sq M.predicted among blacks MDRD (S/P/Bld) [Vol rate/Area] 14 ml/min/1.73sqm Invalid Interpretation Code ADM SS Comment on above: Interpretive Data: GFR Population [...] [Vol rate/Area] 12 ml/min/1.73sqm Invalid Interpretation Code ADM SS Comment on above: Interpretive Data: GFR Population [...] - 3.8 G/dL ADM SS Glucose [Mass/Vol] 126 mg/dL Invalid Interpretation Code 70 - 110 mg/dL ADM SS Hematocrit (Bld) [Volume fraction] 34.0 % Invalid Interpretation Code 34.0 - 46.0 % Workflow SS Hemoglobin (Bld) [Mass/Vol] 11.4 G/dL Invalid Interpretation Code 12.0 - 16.0 G/dL Workflow SS Lymphocytes (Bld) [#/Vol] 0.5 103/mcL Invalid Interpretation Code 0.9 - 4.3 10^3/mcL Workflow SS Lymphocytes/100 WBC (Bld) 9.5 % Invalid Interpretation Code 20.0 - 40.0 % Workflow SS MCH (RBC) [Entitic mass] 31.8 [...] 10.8 10^3/mcL AH Workflow SS LABORATORYOrdered By: Marie graham on 10-10-2022 Lab Performing Location [facility] Work Phone: LABORATORYOrdered By: SYSTEM SYSTEM on 08-29-2022 Albumin [...] Auto (Unsp spec) [#/Vol] 1.01 10*3/uL 0.83-4.51 [facility] Basophil percentageOrdered B y: Dr. Wyman on 07-23-2022 Basophils/100 WBC (Bld) 0.7 % 0-1 [facility] Chloride [Moles/Vol] 104 mmol/L 98-107 [facility] Eosinophils/100 WBC (Bld) 6.5 % 0-5 [facility] Glucose [Mass/Vol] 143 mg/dL 74-106 [facility] Comment on above: Fasting Glucose resu lt greater than or equal to 126 mg/dL suggests DIABETES MELLITUS per A.D.A. criteria. Neutrophils (Bld) [#/Vol] 4.1 10*3/uL 2.0-7.7 [facility] Neutrophils/100 WBC (Bld) 66.7 % 47-70 [facility] Potassium [Moles/Vol] 3.9 mmol/L 3.5-5.1 [facility] Sodium [Moles/Vol] 137 mmol/L 136-145 [facility] WBC (Bld) [#/Vol] 6.1 10*3/uL 4.4-11.0 [facility] Blood erythrocytes count (nu mber/volume)Ordered By: Dr. Wyman on 07-23-2022 RBC (Bld) [#/Vol] 2.80 10*6/uL 4.2-5.4 [facility] Blood hemoglobin measurement (mass/volume)Ordered By: Dr. Wyman on 07-23-2022 Hemoglobin (Bld) [Mass/Vol] 9.2 g/dL 12.0-15.0 [facility] Blood lymphocytes/100 leukoc ytesOrdered By: Dr. Wyman on 07-23-2022 Lymphocytes/100 WBC (Bld) 16.5 % 19-41 [facility] Blood monocytes/100 leukocyt esOrdered By: Dr. Wyman on 07-23-2022 Monocytes/100 WBC (Bld) 8.8 % 0-10 [facility] Blood platelet mean volumeOr dered By: Dr. Wyman on 07-23-2022 Platelet mean volume (Bld) [Entitic vol] 12.7 fL 6.2-12.0 [facility] Determination of erythrocyte mean corpuscular volume (MCV)Ordered By: Dr. Wyman on 07-23-2022 MCV (RBC) [Entitic vol] 102.9 fL 81-99 [facility] Glucose Glucometer (BldC) [M ass/Vol]Ordered By: Dr. Wyman on 07-23-2022 Glucose [Mass/Vol] 118 mg/dL 74-106 [facility] Comment on above: MANAGEMENT OF PATIEN T CARE PER NURSING PROTOCOL Hematocrit Auto (Bld) [Volum e fraction]Ordered By: Dr. Wyman on 07-23-2022 Hematocrit (Bld) [Volume fraction] 28.8 % 37-47 [facility] Laboratory - Chemistry and C hemistry - challengeOrdered By: Dr. Wyman on 07-23-2022 CO2 [Moles/Vol] 28.0 mmol/L 21.0-32.0 [facility] Urea nitrogen/Creatinine [Mass ratio] 6.8 mg/mg 10-20 [facility] Laboratory - Hematology and Cell countsOrdered By: Dr. Wyman on 07-23-2022 Erythrocyte distribution width (RBC) [Entitic vol] 57.8 fL 35.1-43.9 [facility] Erythrocyte distribution width (RBC) [Ratio] 15.6 % 11.6-14.6 [facility] Immature granulocytes/100 WBC (Bld) 0.800 % 0.0-0.9 [facility] Comment on above: IG% - Immature Granu locytes (promyelocytes, myelocytes and metamyelocytes) > 1% indicates that a LEFT SHIFT is Present. MCH (RBC) [Entitic mass] 32.9 pg 27.0-32.0 [facility] Nucleated RBC/100 WBC (Bld) [Ratio] 0 % 0-5 [facility] MCHC Auto (RBC) [Mass/Vol]Or dered By: Dr. Wyman on 07-23-2022 MCHC (RBC) [Mass/Vol] 31.9 g/dL 32-36 [facility] No Panel InformationOrdered By: Dr. Wyman on 07-23-2022 Estimated Creatinine Clearance Calc 9.39 ml/min [facility] [facility] Est[facility] GFR (MDRD) Amer 11 mL/min >60 [facility] Comment on above: GFR Calc Estimated GFR (MDRD) Non-Af Amer 9 mL/min >60 [facility] Comment on above: Non- GFR Calc Platelets bldOrdered By: Dr. Wyman on 07-23-2022 Platelets (Bld) [#/Vol] 179 10*3/uL 150-450 [facility] Serum or plasma calcium brody urement (mass/volume)Ordered By: Dr. Wyman on 07-23-2022 Calcium [Mass/Vol] 8.4 mg/dL 8.5-10.1 [facility] Serum or plasma creatinine m easurement (mass/volume)Ordered By: Dr. Wyman on 07-23-2022 Creatinine [Mass/Vol] 5.29 mg/dL 0.55-1.02 [facility] Comment on above: The validity of the calculated GFR & GFRAA in patients over 70 years has not been determined. Clinical correlation is essential. Serum or plasma urea nitroge n measurement (mass/volume)Ordered By: Dr. Wyman on 07-23-2022 Urea nitrogen [Mass/Vol] 36 mg/dL 7-18 [facility] Thin prep Papanicolaou smear with manual screeningOrdered By: Dr. Wyman on 07-23-2022 Thin prep Papanicolaou smear with manual screening 5 5-15 [facility] Base excessOrdered By: Dr. Elisa grande on 07-22-2022 Base excess Calc (BldV) [Moles/Vol] 9 mmol/L -2-2 [facility] Basophil percentageOrdered B y: Dr. Montenegro on 07-22-2022 Basophil percentage 0-5 SEEN /hpf 0-5 [facility] Basophil percentage 31.9 mmol/L 22- [facility] Basophils/100 WBC (Bld) 97 % 95-99 [facility] Ammonia (P) [Moles/Vol] 43.0 umol/L 11-32 [facility] Bilirubin [Mass/Vol] 0.50 mg/dL 0.20-1.00 [facility] Comment on above: For patients on eltr ombopag therapy, use of Dimension [place] TBIL is not recommended. Protein [Mass/Vol] 6.9 g/dL 6.4-8.2 [facility] Bilirubin Test strip Ql (U)O rdered By: Dr. Montenegro on 07-22-2022 Bilirubin Ql (U) 3 mg/dL Negative [facility] Comment on above: COLOR OF URINE MAY A FFECT DIPSTICK RESULTS. CO2 (BldA) [Partial pressure ]Ordered By: Dr. Montenegro on 07-22-2022 CO2 (Bld) [Partial pressure] 40.0 mm[Hg] 35-45 [facility] Direct bilirubinOrdered By: Dr. Montenegro on 07-22-2022 Bilirubin.direct [Mass/Vol] 0.16 mg/dL 0.00-0.30 [facility] Hyaline casts LM.LPF (Urine sed) [#/Area]Ordered By: Dr. Montenegro on 07-22-2022 Hyaline casts (Urine sed) [#/Area] 10 /[LPF] 0-5 [facility] Ketones Test strip Ql (U)Ord ered By: Dr. Montenegro on 07-22-2022 Ketones Ql (U) 5 mg/dl Negative [facility] Laboratory - Chemistry and C hemistry - challengeOrdered By: Dr. Montenegro on 07-22-2022 ALP [Catalytic activity/Vol] 75 U/L 45-117 [facility] ALT [Catalytic activity/Vol] 92 U/L 13-56 [facility] Globulin (S) [Mass/Vol] 3.5 g/dL 2.2-4.2 [facility] Mucus LM Ql (Urine sed)Order ed By: Dr. Montenegro on 07-22-2022 Mucus Ql (Urine sed) 0 SEEN /hpf [facility] Nitrite Test strip Ql (U)Ord ered By: Dr. Montenegro on 07-22-2022 Nitrite Ql (U) Negative Negative [facility] No Panel InformationOrdered By: Dr. Montenegro on 07-22-2022 Blood Gas Sample Site R Radial [facility] Blood Gas Specimen Type ART [facility] Blood Gas Total CO2 33 mmol/L [facility] Oxygen Delivery Device Room Air [facility] Troponin I High Sensitivity 12 pg/mL 3.0-54.0 [facility] Comment on above: Please Note: New Salma t Units and Gender Specific Reference Ranges. For more information see Policy Stat Procedure [place] High Sensitivity Troponin (TNIH) and attachments. Oxygen (BldA) [Partial press ure]Ordered By: Dr. Montenegro on 07-22-2022 Oxygen (Bld) [Partial pressure] 80 mmHG 75-100 [facility] Protein Test strip Ql (U)Ord ered By: Dr. Montenegro on 07-22-2022 Protein Ql (U) 100 mg/dl Negative [facility] Serum or plasma albumin brody urement (mass/volume)Ordered By: Dr. Montenegro on 07-22-2022 Albumin [Mass/Vol] 3.4 g/dL 3.2-5.0 [facility] Squamous epithelial cells de tection in urine sediment by light microscopyOrdered By: Dr. Montenegro on 07-22-2022 Epithelial cells.squamous LM Ql (Urine sed) 0 SEEN /hpf 5-10 [facility] Thin prep Papanicolaou smear with manual screeningOrdered By: Dr. Montenegro on 07-22-2022 Thin prep Papanicolaou smear with manual screening 53 U/L 15-37 [facility] Urine blood detectionOrdered By: Dr. Montenegro on 07-22-2022 RBC Ql (U) 10 /ul Negative [facility] RBC Ql (U) 0 SEEN /hpf 0-5 [facility] Urine clarityOrdered By: Dr. Montenegro on 07-22-2022 Clarity (U) Sl. Cloudy Clear [facility] Urine color determinationOrd ered By: Dr. Montenegro on 07-22-2022 Color (U) Yellow Yellow [facility] Urine glucose detectionOrder ed By: Dr. Montenegro on 07-22-2022 Glucose Ql (U) Normal mg/dl Normal [facility] Urine leukocyte esterase det ection by dipstickOrdered By: Dr. Montenegro on 07-22-2022 Leukocyte esterase Test strip Ql (U) 100 /ul Negative [facility] Urine pHOrdered By: Dr. Jonathon lai on 07-22-2022 pH (U) 7.0 [pH] 5.0 - 8.0 [facility] Urine sediment bacteria coun t by microscopy (number/high power field)Ordered By: Dr. Montenegro on 07-22-2022 Bacteria LM.HPF (Urine sed) [#/Area] 0 /[HPF] None Seen [facility] Urine specific gravity measu rementOrdered By: Dr. Montenegro on 07-22-2022 Specific gravity (U) [Rel density] 1.010 1.002-1.030 [facility] Urobilinogen Auto test strip Ql (U)Ordered By: Dr. Montenegro on 07-22-2022 Urobilinogen Ql (U) 1 mg/dl Normal [facility] pH measurementOrdered By: Dr Bonita Montenegro on 07-22-2022 pH (Unsp spec) 7.51 [pH] 7.35-7.45 [facility] Absolute lymphocyte countOrd ered By: Amarilys Henao on 07-15-2022 Lymphocytes Auto (Unsp spec) [#/Vol] 0.64 10*3/uL 0.83-4.51 [facility] Basophil percentageOrdered B y: Amarilys Henao on 07-15-2022 Basophil percentage 5.4 mg/dL 2.5-4.9 [facility] Basophils/100 WBC (Bld) 0.4 % 0-1 [facility] Chloride [Moles/Vol] 105 mmol/L 98-107 [facility] Eosinophils/100 WBC (Bld) 8.6 % 0-5 [facility] Glucose [Mass/Vol] 102 mg/dL 74-106 [facility] Comment on above: Fasting Glucose resu lt from 100 to 125 mg/dL suggests IMPAIRED HOMEOSTASIS per A.D.A. criteria. Neutrophils (Bld) [#/Vol] 3.3 10*3/uL 2.0-7.7 [facility] Neutrophils/100 WBC (Bld) 69.1 % 47-70 [facility] Potassium [Moles/Vol] 4.2 mmol/L 3.5-5.1 [facility] Sodium [Moles/Vol] 136 mmol/L 136-145 [facility] WBC (Bld) [#/Vol] 4.8 10*3/uL 4.4-11.0 [facility] Blood erythrocytes count (nu mber/volume)Ordered By: Amarilys Henao on 07-15-2022 RBC (Bld) [#/Vol] 2.64 10*6/uL 4.2-5.4 [facility] Blood hemoglobin measurement (mass/volume)Ordered By: Amarilys Henao on 07-15-2022 Hemoglobin (Bld) [Mass/Vol] 8.6 g/dL 12.0-15.0 [facility] Blood lymphocytes/100 leukoc ytesOrdered By: Amarilys Henao on 07-15-2022 Lymphocytes/100 WBC (Bld) 13.4 % 19-41 [facility] Blood monocytes/100 leukocyt esOrdered By: Amarilys Henao on 07-15-2022 Monocytes/100 WBC (Bld) 8.1 % 0-10 [facility] Blood platelet mean volumeOr dered By: Amarilys Henao on 07-15-2022 Platelet mean volume (Bld) [Entitic vol] 13.6 fL 6.2-12.0 [facility] Determination of erythrocyte mean corpuscular volume (MCV)Ordered By: Amarilys Henao on 07-15-2022 MCV (RBC) [Entitic vol] 101.1 fL 81-99 [facility] Glucose Glucometer (BldC) [M ass/Vol]Ordered By: Dr. Dunn on 07-15-2022 Glucose [Mass/Vol] 221 mg/dL 74-106 [facility] Comment on above: MANAGEMENT OF PATIEN T CARE PER NURSING PROTOCOL Hematocrit Auto (Bld) [Volum e fraction]Ordered By: Amarilys Henao on 07-15-2022 Hematocrit (Bld) [Volume fraction] 26.7 % 37-47 [facility] Laboratory - Chemistry and C hemistry - challengeOrdered By: Amarilys Henao on 07-15-2022 CO2 [Moles/Vol] 26.0 mmol/L 21.0-32.0 [facility] Urea nitrogen/Creatinine [Mass ratio] 10.0 mg/mg 10-20 [facility] Laboratory - Hematology and Cell countsOrdered By: Amarilys Henao on 07-15-2022 Erythrocyte distribution width (RBC) [Entitic vol] 54.9 fL 35.1-43.9 [facility] Erythrocyte distribution width (RBC) [Ratio] 15.1 % 11.6-14.6 [facility] Immature granulocytes/100 WBC (Bld) 0.400 % 0.0-0.9 [facility] Comment on above: IG% - Immature Granu locytes (promyelocytes, myelocytes and metamyelocytes) > 1% indicates that a LEFT SHIFT is Present. MCH (RBC) [Entitic mass] 32.6 pg 27.0-32.0 [facility] Nucleated RBC/100 WBC (Bld) [Ratio] 0 % 0-5 [facility] MCHC Auto (RBC) [Mass/Vol]Or dered By: Amarilys Henao on 07-15-2022 MCHC (RBC) [Mass/Vol] 32.2 g/dL 32-36 [facility] Microbial respiratory cultur eOrdered By: Dr. Wyman on 07-15-2022 Bacteria identified Respiratory culture Nom (Unsp spec) or Staphylococcus aureus isolated. [facility] No Panel InformationOrdered By: Amarilys Henao on 07-15-2022 Estimated Creatinine Clearance Calc 6.61 ml/min [facility] Estimated GFR (MDRD) Amer 8 mL/min >60 [facility] Comment on above: GFR Calc Estimated GFR (MDRD) Non-Af Amer 6 mL/min >60 [facility] Comment on above: Non- GFR Calc Platelets bldOrdered By: Armen Henao on 07-15-2022 Platelets (Bld) [#/Vol] 97 10*3/uL 150-450 [facility] Serum or plasma albumin brody urement (mass/volume)Ordered By: Amarilys Henao on 07-15-2022 Albumin [Mass/Vol] 2.7 g/dL 3.2-5.0 [facility] Serum or plasma calcium brody urement (mass/volume)Ordered By: Amarilys Henao on 07-15-2022 Calcium [Mass/Vol] 7.7 mg/dL 8.5-10.1 [facility] Serum or plasma creatinine m easurement (mass/volume)Ordered By: Amarilys Henao on 07-15-2022 Creatinine [Mass/Vol] 7.17 mg/dL 0.55-1.02 [facility] Comment on above: The validity of the calculated GFR & GFRAA in patients over 70 years has not been determined. Clinical correlation is essential. Serum or plasma urea nitroge n measurement (mass/volume)Ordered By: Amarilys Henao on 07-15-2022 Urea nitrogen [Mass/Vol] 72 mg/dL 7-18 [facility] Basophil percentageOrdered B y: Dr. Wyman on 07-13-2022 Basophil percentage 0-5 SEEN /hpf 0-5 [facility] Bilirubin Test strip Ql (U)O rdered By: Dr. Wyman on 07-13-2022 Bilirubin Ql (U) 1 mg/dL Negative [facility] Comment on above: COLOR OF URINE MAY A FFECT DIPSTICK RESULTS. Gram stain for investigation of transfusion reactionOrdered By: Dr. Wyman on 07-13-2022 Microscopic observation Gram stain Nom (Unsp spec) [facility] Ketones Test strip Ql (U)Ord ered By: Dr. Wyman on 07-13-2022 Ketones Ql (U) Negative Negative [facility] Mucus LM Ql (Urine sed)Order ed By: Dr. Wyman on 07-13-2022 Mucus Ql (Urine sed) 0 SEEN /hpf [facility] Nitrite Test strip Ql (U)Ord ered By: Dr. Wyman on 07-13-2022 Nitrite Ql (U) Negative Negative [facility] No Panel InformationOrdered By: Dr. Wyman on 07-13-2022 Streptococcus pneumoniae Antigen (M [facility] Protein Test strip Ql (U)Ord ered By: Dr. Wyman on 07-13-2022 Protein Ql (U) 100 mg/dl Negative [facility] Squamous epithelial cells de tection in urine sediment by light microscopyOrdered By: Dr. Wyman on 07-13-2022 Epithelial cells.squamous LM Ql (Urine sed) 0-5 SEEN /hpf 5-10 [facility] Urine Legionella pneumophila antigen detectionOrdered By: Dr. Wyman on 07-13-2022 L. pneumophila Ag Ql (U) [facility] Urine blood detectionOrdered By: Dr. Wyman on 07-13-2022 RBC Ql (U) Negative Negative [facility] RBC Ql (U) 0 SEEN /hpf 0-5 [facility] Urine clarityOrdered By: Dr. Wyman on 07-13-2022 Clarity (U) Sl. Cloudy Clear [facility] Urine color determinationOrd ered By: Dr. Wyman on 07-13-2022 Color (U) Yellow Yellow [facility] Urine glucose detectionOrder ed By: Dr. Wyman on 07-13-2022 Glucose Ql (U) Normal mg/dl Normal [facility] Urine leukocyte esterase det ection by dipstickOrdered By: Dr. Wyman on 07-13-2022 Leukocyte esterase Test strip Ql (U) 25 /ul Negative [facility] Urine pHOrdered By: Dr. Claudia gardiner on 07-13-2022 pH (U) 7.0 [pH] 5.0 - 8.0 [facility] Urine sediment bacteria coun t by microscopy (number/high power field)Ordered By: Dr. Wyman on 07-13-2022 Bacteria LM.HPF (Urine sed) [#/Area] 1 /[HPF] None Seen [facility] Urine specific gravity measu rementOrdered By: Dr. Wyman on 07-13-2022 Specific gravity (U) [Rel density] 1.010 1.002-1.030 [facility] Urobilinogen Auto test strip Ql (U)Ordered By: Dr. Wyman on 07-13-2022 Urobilinogen Ql (U) Normal mg/dl Normal [facility] Absolute lymphocyte countOrd ered By: Kamlesh Muhammad on 07-12-2022 Lymphocytes Auto (Unsp spec) [#/Vol] 0.54 10*3/uL 0.83-4.51 [facility] Basophil percentageOrdered B y: Kamlesh Muhammad on 07-12-2022 Basophils/100 WBC (Bld) 0.3 % 0-1 [facility] Chloride [Moles/Vol] 102 mmol/L 98-107 [facility] Eosinophils/100 WBC (Bld) 3.1 % 0-5 [facility] Glucose [Mass/Vol] 186 mg/dL 74-106 [facility] Comment on above: Fasting Glucose resu lt greater than or equal to 126 mg/dL suggests DIABETES MELLITUS per A.D.A. criteria. Neutrophils (Bld) [#/Vol] 5.5 10*3/uL 2.0-7.7 [facility] Neutrophils/100 WBC (Bld) 76.5 % 47-70 [facility] Potassium [Moles/Vol] 4.1 mmol/L 3.5-5.1 [facility] Sodium [Moles/Vol] 139 mmol/L 136-145 [facility] WBC (Bld) [#/Vol] 7.2 10*3/uL 4.4-11.0 [facility] Blood erythrocytes count (nu mber/volume)Ordered By: Kamlesh Muhammad on 07-12-2022 RBC (Bld) [#/Vol] 2.80 10*6/uL 4.2-5.4 [facility] Blood hemoglobin measurement (mass/volume)Ordered By: Kamlesh Muhammad on 07-12-2022 Hemoglobin (Bld) [Mass/Vol] 9.2 g/dL 12.0-15.0 [facility] Blood lymphocytes/100 leukoc ytesOrdered By: Kamlesh Muhammad on 07-12-2022 Lymphocytes/100 WBC (Bld) 7.6 % 19-41 [facility] Blood monocytes/100 leukocyt esOrdered By: Kamlesh Muhammad on 07-12-2022 Monocytes/100 WBC (Bld) 12.2 % 0-10 [facility] Blood platelet mean volumeOr dered By: Kamlesh Muhammad on 07-12-2022 Platelet mean volume (Bld) [Entitic vol] 12.2 fL 6.2-12.0 [facility] Determination of erythrocyte mean corpuscular volume (MCV)Ordered By: Kamlesh Muhammad on 07-12-2022 MCV (RBC) [Entitic vol] 101.4 fL 81-99 [facility] HCO3 (BldA) [Moles/Vol]Order ed By: Dr. Talley on 07-12-2022 HCO3 (Bld) [Moles/Vol] 33 mmol/L 22-26 [facility] Hematocrit Auto (Bld) [Volum e fraction]Ordered By: Kamlesh Muhammad on 07-12-2022 Hematocrit (Bld) [Volume fraction] 28.4 % 37-47 [facility] INR in Blood by Coagulation assayOrdered By: Kamlesh Muhammad on 07-12-2022 INR Coag (Bld) [Relative time] 1.2 {INR} [facility] Influenza virus A and B and SARS-CoV-2 (COVID-19) Ag panel - Upper respiratory specimOrdered By: Kamlesh Muhammad on 07-12-2022 SARS-CoV-2 (COVID-19) RNA YANI+probe Ql (Resp) [facility] Laboratory - Chemistry and C hemistry - challengeOrdered By: Dr. Talley on 07-12-2022 CO2 [Moles/Vol] 34 mmol/L 23-33 [facility] Laboratory - Chemistry and C hemistry - challengeOrdered By: Kamlesh Muhammad on 07-12-2022 CO2 [Moles/Vol] 36.0 mmol/L 21.0-32.0 [facility] Urea nitrogen/Creatinine [Mass ratio] 6.3 mg/mg 10-20 [facility] Laboratory - CoagulationOrde red By: Kamlesh Muhammad on 07-12-2022 PT Coag (PPP) [Time] 15.2 s 11.7-14.9 [facility] Laboratory - Hematology and Cell countsOrdered By: Kamlesh Muhammad on 07-12-2022 Erythrocyte distribution width (RBC) [Entitic vol] 55.9 fL 35.1-43.9 [facility] Erythrocyte distribution width (RBC) [Ratio] 15.4 % 11.6-14.6 [facility] Immature granulocytes/100 WBC (Bld) 0.300 % 0.0-0.9 [facility] Comment on above: IG% - Immature Granu locytes (promyelocytes, myelocytes and metamyelocytes) > 1% indicates that a LEFT SHIFT is Present. MCH (RBC) [Entitic mass] 32.9 pg 27.0-32.0 [facility] Nucleated RBC/100 WBC (Bld) [Ratio] 0 % 0-5 [facility] MCHC Auto (RBC) [Mass/Vol]Or dered By: Kamlesh Muhammad on 07-12-2022 MCHC (RBC) [Mass/Vol] 32.4 g/dL 32-36 [facility] No Panel InformationOrdered By: Dr. Talley on 07-12-2022 Bed Mix Venous Bld PCO2 at Pat Temp 43.0 mmHg 41-51 [facility] Blood Gas Specimen Type SARAH [facility] Oxygen Delivery Device Room Air [facility] Venous Blood Base Excess 9 mmol/L -1.0-3.5 [facility] No Panel InformationOrdered By: Kamlesh Muhammad on 07-12-2022 Estimated Creatinine Clearance Calc 12.92 ml/min [facility] Estimated GFR (MDRD) Amer 16 mL/min >60 [facility] Comment on above: GFR Calc Estimated GFR (MDRD) Non-Af Amer 14 mL/min >60 [facility] Comment on above: Non- GFR Calc PO2 venousOrdered By: Dr. Ray comer on 07-12-2022 Oxygen (BldV) [Partial pressure] 42 mm[Hg] 25-40 [facility] Platelets bldOrdered By: Tiffanie Muhammad on 07-12-2022 Platelets (Bld) [#/Vol] 105 10*3/uL 150-450 [facility] Serum or plasma calcium brody urement (mass/volume)Ordered By: Kamlesh Muhammad on 07-12-2022 Calcium [Mass/Vol] 8.5 mg/dL 8.5-10.1 [facility] Serum or plasma creatinine m easurement (mass/volume)Ordered By: Kamlesh Muhammad on 07-12-2022 Creatinine [Mass/Vol] 3.67 mg/dL 0.55-1.02 [facility] Comment on above: The validity of the calculated GFR & GFRAA in patients over 70 years has not been determined. Clinical correlation is essential. Serum or plasma urea nitroge n measurement (mass/volume)Ordered By: Kamlesh Muhammad on 07-12-2022 Urea nitrogen [Mass/Vol] 23 mg/dL 7-18 [facility] Thin prep Papanicolaou smear with manual screeningOrdered By: Kamlesh Muhammad on 07-12-2022 Thin prep Papanicolaou smear with manual screening 1 - [facility] Vital signsOrdered By: Dr. Navdeep paulino on 07-12-2022 Oxygen saturation in Blood 81 % 50-70 [facility] pH measurementOrdered By: Dr Bonita Talley on 07-12-2022 pH (Unsp spec) 7.49 [pH] 7.32-7.42 [facility] LABORATORYOrdered By: Tobi Andersen on 04-15-2022 [...] Invalid Interpretation Code 70 - 110 mg/dL [facility] Work Phone: LABORATORYOrdered By: SYSTEM SYSTEM [...] - 110 mEq/L ADM SS CO2 [Moles/Vol] 34 mmol/L Invalid Interpretation Code 22 - 32 mEq/L AH ADM SS Creatinine [Mass/Vol] 3.06 mg/dL Invalid Interpretation Code 0.50 - 1.20 mg/dL AH ADM SS Electrolyte Balance 6.0 mEq/L Invalid Interpretation Code 4.0 - 15.0 mEq/L AH ADM SS Eosinophils (Bld) [#/Vol] 0.3 103/mcL Invalid Interpretation Code 0.0 - 0.7 10^3/mcL AH Workflow SS Eosinophils/100 WBC (Bld) 3.0 % Invalid Interpretation Code 0.0 - 6.0 % AH Workflow SS Erythrocyte distribution width (RBC) [Ratio] [...] Code 12.0 - 16.0 G/dL Workflow SS Lymphocytes (Bld) [#/Vol] 0.4 103/mcL Invalid Interpretation Code 0.9 - 4.3 10^3/mcL Workflow SS Lymphocytes/100 WBC (Bld) 5.0 % Invalid Interpretation Code 20.0 - 40.0 % Workflow SS MCH (RBC) [Entitic mass] 32.0 pg Invalid Interpretation Code 27.0 - 33.0 pg AH Workflow SS MCHC 33.8 G/dL Invalid Interpretation Code 32.0 - 36.0 G/dL AH Workflow SS MCV (RBC) [Entitic vol] 94.8 [...] Invalid Interpretation Code 50.0 - 75.0 % Workflow SS Platelet mean volume (Bld) [Entitic [...] - 10.8 10^3/mcL Workflow SS LABORATORYOrdered By: Torri Kendrick on [...] Invalid Interpretation Code 70 - 110 mg/dL [facility] Work Phone: LABORATORYOrdered By: Deolres Rose on 12-15-2021 Glucose [Mass/Vol] 332 mg/dL Invalid Interpretation Code 70 - 110 mg/dL [facility] Work Phone: LABORATORYOrdered By: Davie tai on 12-15-2021 Glucose [Mass/Vol] 306 mg/dL Invalid Interpretation Code 70 - 110 mg/dL [facility] Work Phone: LABORATORYOrdered By: SYSTEM SYSTEM [...] Code 12.0 - 16.0 G/dL Workflow SS Lymphocytes (Bld) [#/Vol] 0.7 103/mcL Invalid Interpretation Code 0.9 - 4.3 10^3/mcL Workflow SS Lymphocytes/100 WBC (Bld) 6.1 % Invalid Interpretation Code 20.0 - 40.0 % Workflow SS MCH (RBC) [Entitic mass] 31.9 pg Invalid Interpretation Code 27.0 - 33.0 pg Workflow SS MCHC 34.3 G/dL Invalid Interpretation Code 32.0 - 36.0 G/dL Workflow SS MCV (RBC) [Entitic vol] 92.9 fL Invalid Interpretation Code 80.0 - 99.0 fL Workflow SS Monocytes (Bld) [#/Vol] 0.7 103/mcL Invalid Interpretation Code 0.1 - 1.4 10^3/mcL AH Workflow SS Monocytes/100 WBC (Bld) 6.0 % Invalid Interpretation Code 2.0 - 13.0 % Workflow SS Neutrophils (Bld) [#/Vol] 10.3 103/mcL Invalid Interpretation Code 2.3 - 8.1 10^3/mcL Workflow SS Neutrophils/100 WBC (Bld) 87.7 % Invalid Interpretation Code 50.0 - 75.0 % Workflow SS Platelet mean volume (Bld) [Entitic vol] 10.4 fL Invalid Interpretation Code 6.6 - 10.5 fL Workflow SS Platelets (Bld) [#/Vol] 139 103/mcL Invalid Interpretation Code 150 - 450 10^3/mcL Workflow SS Potassium [Moles/Vol] 3.6 mmol/L Invalid Interpretation Code 3.5 - 5.0 mEq/L ADM SS Potassium [Moles/Vol] 3.5 mmol/L Invalid Interpretation Code 3.5 - 5.0 mEq/L ADM SS Protein [Mass/Vol] 5.8 G/dL Invalid Interpretation Code 5.7 - 8.2 G/dL ADM SS RBC (Bld) [#/Vol] 3.00 106/mcL Invalid Interpretation Code 4.10 - 5.30 10^6/mcL Workflow SS Troponin I.cardiac DL <= 0.01 ng/mL [Mass/Vol] 10.93 ng/L Invalid Interpretation Code 0.00 - 34.00 ng/L ADM SS Urea nitrogen [Mass/Vol] 61.0 mg/dL [...] 10.8 10^3/mcL AH Workflow SS LABORATORYOrdered By: Chanel on 12-15-2021 [...] Code 136 - 145 mEq/L ADM SS LABORATORYOrdered By: Shubham craft on 12-14-2021 Blood Glucose Testing Reason Routine (12/14/21 5:29 PM) [facility] Work Phone: Time of Stated Blood Glucose [phone] [facility] Work Phone: LABORATORYOrdered By: Raisa Gilliland on 12-14-2021 Blood Glucose Testing Reason Routine (12/14/21 12:28 PM) [facility] Work Phone: Time of Stated Blood Glucose [phone] [facility] Work Phone: LABORATORYOrdered By: SYSTEM SYSTEM on 12-14-2021 Albumin BCP dye [Mass/Vol] 3.0 G/dL Invalid Interpretation Code 3.2 - 4.8 G/dL ADM SS Albumin/Globulin [Mass ratio] 1.0 {ratio} [...] 2.5 % AH Workflow SS Bilirubin [Mass/Vol] 0.30 mg/dL Invalid [...] ml/min/1.73sqm Invalid Interpretation Code Chemistry S Globulin 2.9 G/dL Invalid Interpretation Code 1.5 - 3.8 G/dL ADM SS Glucose [Mass/Vol] 290 mg/dL Invalid Interpretation Code 70 - 110 mg/dL ADM SS HBV surface Ag IA Ql Non-Reactive (12/14/21 7:18 AM) Invalid Interpretation Code Non-Reactive ADM SS Hematocrit (Bld) [Volume fraction] 28.0 % Invalid Interpretation Code 34.0 - 46.0 % AH Workflow SS Hemoglobin (Bld) [Mass/Vol] 9.7 G/dL Invalid Interpretation Code 12.0 - 16.0 G/dL AH Workflow SS Lymphocytes (Bld) [#/Vol] 0.3 103/mcL Invalid Interpretation Code 0.9 - 4.3 10^3/mcL AH Workflow SS Lymphocytes/100 WBC (Bld) 3.2 % [...] 5.0 mEq/L AH ADM SS Protein [Mass/Vol] 5.9 G/dL Invalid Interpretation Code 5.7 - 8.2 G/dL AH ADM SS RBC (Bld) [#/Vol] 3.01 106/mcL Invalid Interpretation Code 4.10 - 5.30 10^6/mcL AH Workflow SS Sodium [Moles/Vol] 133 mmol/L Invalid Interpretation Code 136 - 145 mEq/L AH ADM SS Troponin I.cardiac DL <= 0.01 [...] Glucose Testing Reason Routine (12/13/21 9:52 PM) [facility] Work Phone: LABORATORYOrdered By: SYSTEM SYSTEM [...] Invalid Interpretation Code 8 - 34 U/L AH ADM SS Basophils (Bld) [#/Vol] 0.0 103/mcL Invalid Interpretation Code 0.0 - 0.3 10^3/mcL Workflow SS Basophils/100 WBC (Bld) 0.1 % Invalid Interpretation Code 0.0 - 2.5 % Workflow SS Bilirubin [Mass/Vol] 0.40 mg/dL Invalid Interpretation Code 0.20 - 1.20 mg/dL ADM SS CK [Catalytic activity/Vol] 80 U/L [...] 4.3 10^3/mcL Workflow SS Lymphocytes/100 WBC (Bld) 3.9 % Invalid Interpretation Code 20.0 - 40.0 % Workflow SS Magnesium [Mass/Vol] 1.8 mg/dL Invalid Interpretation Code 1.6 - 2.4 mg/dL ADM SS MCH (RBC) [Entitic mass] 31.9 pg Invalid Interpretation Code 27.0 - 33.0 pg Workflow SS MCHC 33.8 G/dL Invalid Interpretation Code 32.0 - 36.0 G/dL Workflow SS MCV (RBC) [Entitic vol] 94.4 [...] Invalid Interpretation Code 25.0 - 35.0 seconds AH Auto Coag SS Fibrin D-dimer DDU (PPP) [Mass/Vol] 203 ng/mL D-DU Invalid Interpretation Code 0 - 230 ng/mL D-DU AH Auto Coag SS Comment on above: Result Comment: Resu lts reported in D-DU ng/ml. Negative for D-dimer. DVT/PE is highly unlikely. Note: False negative results may be seen in patients on anticoagulant therapy. Heparin dose (APTT) Unknown (12/13/21 5:57 PM) Invalid Interpretation Code AH Auto Coag SS LABORATORYOrdered By: Deloris Martinez [...] definite cause of disease. Laboratories within [facility] and its territories are required to report [...] Code AH Auto Viro/Sero SS B. parapertussis [id number] DNA YANI+non-probe Ql (Nph) Not Detected *NA* [...] 4:15 PM) Invalid Interpretation Code Not Detected Auto Viro/Sero SS FLUBV RNA YANI+non-probe Ql (Nph) Not Detected *NA* (12/11/21 4:15 PM) Invalid Interpretation Code Not Detected AH Auto Viro/Sero SS HAS SYMPTOMS RELATED TO CONDITION OF INTEREST:FIND:PT:^ANGELA ENT:ORD: Yes (12/11/21 4:15 PM) Invalid Interpretation Code Auto Viro/Sero SS hMPV RNA YANI+non-probe Ql (Nph) Not Detected *NA* (12/11/21 4:15 PM) Invalid Interpretation Code Not Detected Auto Viro/Sero SS Illness or injury onset date and time [id number] Invalid Interpretation Code Auto Viro/Sero SS M. pneumoniae DNA YANI+non-probe Ql (Nph) Not Detected *NA* (12/11/21 4:15 PM) Invalid Interpretation Code Not Detected Auto Viro/Sero SS Parainfluenza virus 1 RNA YANI+non-probe Ql (Nph) Not Detected *NA* (12/11/21 4:15 PM) Invalid Interpretation Code Not Detected Auto Viro/Sero SS Parainfluenza virus 2 RNA YANI+non-probe Ql (Nph) Not Detected *NA* (12/11/21 4:15 PM) Invalid Interpretation Code Not Detected Auto Viro/Sero SS Parainfluenza virus 3 RNA YANI+non-probe Ql (Nph) Not Detected *NA* (12/11/21 4:15 PM) Invalid Interpretation Code Not Detected Auto Viro/Sero SS Parainfluenza virus 4 RNA YANI+non-probe Ql (Nph) Not Detected *NA* (12/11/21 4:15 PM) Invalid Interpretation Code Not Detected AH Auto Viro/Sero SS Patient was hospitalized because of this condition No (12/11/21 4:15 PM) Invalid Interpretation Code Auto Viro/Sero SS status Not (12/11/21 4:15 PM) Invalid Interpretation Code Auto Viro/Sero SS RESIDES IN A CONGREGATE [...] Interpretation Code AO Chemistry S LABORATORYOrdered By: oTbi Hdez on 11-04-2021 aPTT Coag (Bld) [Time] [...] 09-25 AUTOCROSSMATCH, FLOW SEE SEPARATE REPORT Normal [facility] Comment on above: Result Comment: Test performed at [facility], 6th Floor [id number] [place] [address] Performed By: #### V MEIRZG #### [facility] [address] [place] [id number] HLA CLASS I AB SCREEN,FCon 0 09-25-2021 HLA CLASS I AB SCREEN,FC SEE COMMENT Normal [facility] Comment on above: Result Comment: HLA CLASS I AB SCREEN,FLOW CYTOMETRY SEE SEPARATE REPORT. Test performed at [facility], [address]th Floor [address] [place] [address] Performed By: #### V ARZG #### [facility] [address] [place] [id number] HLA CLASS II AB SCREEN,FCon 09-25-2021 HLA CLASS II AB SCREEN,FC SEE COMMENT Normal [facility] Comment on above: Result Comment: HLA CLASS II AB SCREEN,FLOW CYTOMETRY SEE SEPARATE REPORT. Test performed at [facility], 6th Floor [address] [place] [address] Performed By: #### V ARZG #### [facility] [address] [place] [id number] HLA-A,B,C LRon 09-25-2021 HLA-A LOCUS LR TYPE SEE COMMENT Normal [facility] Comment on above: Result Comment: HLA- A LOCUS, LOW RESOLUTION TYPE SEE SEPARATE REPORT. Performed By: #### D N1LR #### [facility] [address] [place] [id number] HLA-B LOCUS LR TYPE SEE COMMENT Normal [facility] Comment on above: Result Comment: HLA- B LOCUS, LOW RESOLUTION TYPE SEE SEPARATE REPORT. Performed By: #### D N1LR #### [facility] [address] [place], [place] HLA-C LOCUS LR TYPE SEE COMMENT Normal [facility] Comment on above: Result Comment: HLA- C LOCUS, LOW RESOLUTION TYPE SEE SEPARATE REPORT. Test performed at [facility], 6th Floor [id number] [place] [address] Performed By: #### D N1LR #### [facility] [address] [facility] [place] [id number] HLA-DPB1 HR TYPINGon 022 HLA-DPB1 HR TYPING SEE COMMENT Normal [facility] Comment on above: Result Comment: HLA- DPB1 HIGH RESOLUTION TYPING SEE SEPARATE REPORT. Test performed at [facility], [address]th [id number] [place] [address] Performed By: #### H BAB3 #### [facility] [address] [facility]. [place] [id number] HLA-DQB1 HR TYPINGon 022 HLA-DQB1 HR TYPING SEE COMMENT Normal [facility] Comment on above: Result Comment: HLA- DQB1 HIGH RESOLUTION TYPING SEE SEPARATE REPORT. Test performed at [facility], 6th Floor [address] [place] [address] Performed By: #### D QBHT #### [facility] [address] [facility]. [place] [id number] HLA-DRB1/3/4/5 AND DQB1 LR T YPINGon 09-25-2021 HLA-DRB1/3/4/5 & DQB1 LR TYPING SEE COMMENT Normal [facility] Comment on above: Result Comment: HLA- DRB1/3/4/5 AND DQB1 LOW RESOLUTION TYPING SEE SEPARATE REPORT. Test performed at [facility], 6th Floor [id number] [place], [place] [id number] Performed By: #### V ARZG #### [facility] [address] [facility]. [place], [place] DRUG-PROFILE 9,BLOOD WITH RE FLEX TO CONFIRMATIONon 09-03-2021 AMPHETAMINES SCREEN Negative Normal Cutoff 20 [facility] Comment on above: Performed By: #### D S7LC #### [facility] [address] [place] [address] BARBITURATES SCREEN Negative Normal Cutoff 50 [facility] Comment on above: Performed By: #### D S7LC #### [facility] [address] [place] [address] BENZODIAZEPINES SCREEN Negative Normal Cutoff 50 [facility] Comment on above: Performed By: #### D S7LC #### [facility] [address] [place] [address] BUPRENORPHINE SCREEN Negative Normal Cutoff 1 [facility] Comment on above: Performed By: #### D S7LC #### [facility] [address] [place] [address] CANNABINOID SCREEN Negative Normal Cutoff 20 [facility] Comment on above: Performed By: #### D S7LC #### [facility] [address] [place] [address] COCAINE SCREEN Negative Normal Cutoff 20 [facility] Comment on above: Performed By: #### D S7LC #### [facility] [address] [place] [address] DRUG SCREEN COMMENT See Note Normal [facility] Comment on above: Result Comment: INTE RPRETIVE INFORMATION: Drug Screen 9 Panel, Serum or Plasma - Immunoassay Screen with Reflex to Mass Spectrometry Confirmation/Quantitation 1. Methodology: Qualitative Immunoassay Screen 2. Drugs/Drug classes reported as "Positive" are automatically reflexed to mass spectrometry confirmation/quantitation [...] developed and its performance characteristics determined by [employer]. It has not been cleared or approved by the [place] Food and Drug Administration. This test was performed in a CLIA certified laboratory and is intended for clinical purposes. Performed By: [facility] [employer] [address] [place] [address] Flat Folding Machine Operator: Eboni Izquierdo MD Performed By: #### D S7LC #### [facility] [address] [facility], [place] [address] METHADONE SCREEN Negative Normal Cutoff 25 [facility] Comment on above: Performed By: #### D S7LC #### [facility] [address] [facility], [place] [address] METHAMPHETAMINES SCREEN Negative Normal Cutoff 20 [facility] Comment on above: Performed By: #### D S7LC #### [facility] [address] [facility], [place] [address] OPIATE SCREEN Negative Normal Cutoff 20 [facility] Comment on above: Performed By: #### D S7LC #### [facility] [address] [facility], [place] [address] OXYCODONE SCREEN Negative Normal Cutoff 20 [facility] Comment on above: Performed By: #### D S7LC #### [facility] [address] [facility], [place] [address] PCP SCREEN Negative Normal Cutoff 10 [facility] Comment on above: Performed By: #### D S7LC #### [facility] [address] [facility], [place] [address] NICOTINE+METABOLITES,Son [id number] <2 Normal [facility] Comment on above: Performed By: #### N I+ME #### [facility] [address] [facility], [place] [address] COTININE <2 Normal [facility] Comment on above: Performed By: #### N I+ME #### [facility] [address] [facility], [place] [address] NICOTINE <2 Normal [facility] Comment on above: Result Comment: Cons istent [...] developed and its performance characteristics determined by [employer]. It has not been cleared or approved by the [place] Food and Drug Administration. This test was performed in a CLIA certified laboratory and is intended for clinical purposes. Performed By: [facility] [address] [place] [address] Flat Folding Machine Operator: Eboni Izquierdo MD Performed By: #### N I+ME #### [facility] [address] [place] [address] T-SPOT TBon 09-02-2021 NIL[NEG]CONTROL SPOT COUNT Passed Normal [facility] Comment on above: Performed By: #### T SPOT #### [facility] [address] [place] [address] PANEL A SPOT COUNT 1 Normal [facility] Comment on above: Performed By: #### T SPOT #### [facility] [address] [place] [address] PANEL B SPOT COUNT 0 Normal [facility] Comment on above: Performed By: #### T SPOT #### [facility] [address] [place] [address] POS CONTROL SPOT COUNT Passed Normal [facility] Comment on above: Performed By: #### T SPOT #### [facility] [address] [place] [address] T-SPOT.TB INTERP Negative Normal Normal Value: Negative [facility] Comment on above: Result Comment: A ne [...] test. Performed By: #### T SPOT #### [facility] [address] [place] [address] ABO/RH GROUP TESTon 08-31-19 22 ABO TYPE O Normal [facility] Comment on above: Performed By: #### H BAB3 #### [facility] [address] [place] [address] RH TYPE Positive Normal [facility] Comment on above: Performed By: #### H BAB3 #### [facility] [address] [place] [address] AUTOCROSSMATCH, FLOWon 08-30 AUTOCROSSMATCH, FLOW Canceled Normal [facility] Comment on above: Order Comment: TEST AUTOCROSSMATCH, FLOW WAS CANCELLED, 08/30/2021 15:15 ordered under wrongvisit, reordered. please do not redraw. Result Comment: Test performed at [facility], 6th Floor [address] [place] [address] Performed By: #### H BAB3 #### [facility] [address] [place] [id number] Blood Typing (ABO + Rho D)on 08-30-2021 ABO group Nom (Bld) O [facility] [facility] Work Phone: Rh immune globulin screen (Bld) [Interp] Positive [facility] Work Phone: C PEPTIDEon 08-30-2021 C PEPTIDE 3.2 ng/mL Normal 0.7 - 3.9 [facility] Comment on above: Performed By: #### V ARZG #### [facility] [address] [place] [address] C Peptide, Serumon 2 C peptide [Mass/Vol] 3.2 ng/mL 0.7 - 3.9 [facility] [facility] Work Phone: CBCon 08-30-2021 Erythrocyte distribution width (RBC) [Ratio] 13.2 % Normal 11.5 - 14.5 [facility] Comment on above: Performed By: #### Ramón ESPINAL #### [facility] [address] [place] [address] Hematocrit (Bld) [Volume fraction] 35.8 % Low 36.0 - 46.0 [facility] Comment on above: Performed By: #### Ramón ESPINAL #### [place] [address] [place] [address] Hemoglobin (Bld) [Mass/Vol] 11.9 g/dL Low 12.0 - 16.0 [facility] Comment on above: Performed By: #### Ramón ESPINAL #### [facility] [address] [place] [address] MCHC (RBC) [Mass/Vol] 33.2 g/dL Normal 32.0 - 36.0 [facility] Comment on above: Performed By: #### Ramón ESPINAL #### [facility] [address] [place] [address] MCV (RBC) [Entitic vol] 95 fL Normal 80 - 100 [facility] Comment on above: Performed By: #### Ramón ESPINAL #### [facility] [address] [place] [address] NUCLEATED RBC 0.0 /100 WBC Normal 0.0-0.0 [facility] Comment on above: Performed By: #### Ramón ESPINAL #### [place] [address] [place] [address] Platelets (Bld) [#/Vol] 168 10*3/uL Normal 150 - 450 [facility] Comment on above: Performed By: #### Ramón ESPINAL #### [facility] [address] [place] [address] RBC 3.76 x10E12/L Low 4.00 - 5.20 [facility] Comment on above: Performed By: #### Ramón ESPINAL #### [facility] [address] [place] [address] WBC (Bld) [#/Vol] 6.9 10*3/uL Normal 4.4 - 11.3 [facility] Comment on above: Performed By: #### V MEIRZG #### [facility] [address] [place] [address] CMV IGGon 08-30-2021 CMV IGG AB Non-Reactive Normal NONREACTIVE [facility] Comment on above: Performed By: #### H BAB3 #### [facility] [address] [place] [address] CMV IgGon 08-30-2021 CMV IgG Non-Reactive See Below [facility] Work Phone: [...] [Mass/Vol] 3.99 mg/dL High 0.50 - 1.05 [facility] Comment on above: Performed By: #### V ARZG #### [facility] [address] [place] [address] GFR/1.73 sq M.predicted among non-blacks MDRD (S/P/Bld) [Vol rate/Area] 13 mL/min/{1.73_m2} Abnormal >90 [facility] Comment on above: Result Comment: CALC ULATIONS OF ESTIMATED GFR ARE PERFORMED USING THE 2020 CKD-EPI STUDY REFIT EQUATION WITHOUT THE RACE VARIABLE FOR THE IDMS-TRACEABLE CREATININE METHODS. https://jasn.asnjournals.org/content/early//ASN.78221 21083 Performed By: #### V ARZG #### [facility] [address] [place] [address] Creatinine, Serumon 08-31-19 Creatinine [Mass/Vol] 3.99 mg/dL above high threshold See Below [facility] Work Phone: Comment on above: SOURCE: Reference Ra nge: 0.50 - 1.05 Creatinine, Serum 13 {mL/min/1.73m2} Abnormal >90 [facility] Work Phone: Comment on above: CALCULATIONS OF BRIA MATED GFR ARE PERFORMED USING THE 2020 CKD-EPI STUDY REFIT EQUATION WITHOUT THE RACE VARIABLE FOR THE IDMS-TRACEABLE CREATININE METHODS.https://jasn.asnjournals.org/content/early/A SN.7286623706 EBV PANELon 08-30-2021 VCA IGM ANTIBODY Negative Normal NEGATIVE [facility] Comment on above: Performed By: #### T SPOT #### [facility] [address] [place] [address] EBV EA-D IGG ANTIBODY Negative Normal NEGATIVE [facility] Comment on above: Performed By: #### T SPOT #### [facility] [address] [place] [address] EBV INTERPRETATION SEE BELOW Normal [facility] Comment on above: Result Comment: . EB V INTERPRETATION CHART . VCA-IGG VCA-IGM NA-IGG EA-IGG . PRIMARY ACUTE +/- +/- - +/- LATE ACUTE + +/- +/- +/- RECOVERING + - - + PREVIOUS INFECTION + - +/- - Performed By: #### T SPOT #### [facility] [address] [address] EBV NA-1 IGG ANTIBODY Positive Abnormal NEGATIVE [facility] Comment on above: Performed By: #### T SPOT #### [facility] [address] [place] [address] VCA IGG ANTIBODY Positive Abnormal NEGATIVE [facility] Comment on above: Performed By: #### T SPOT #### [facility] [address] [place] [address] Established Visit (Nephrolog y)on 08-30-2021 Established Visit (Nephrology) No report was sent Normal [place] HEMOGLOBIN A1Con 08-30-2021 Glucose [Mass/Vol] 100 mg/dL Normal [facility] Comment on above: Performed By: #### T SPOT #### [facility] [address] [place] [address] HbA1c (Bld) [Mass fraction] 5.1 % Normal [facility] Comment on above: Result Comment: Diag nosis of Diabetes-Adults Non-Diabetic: < or = 5.6% Increased risk for developing diabetes: 5.7-6.4% Diagnostic of diabetes: > or = 6.5% . Monitoring of Diabetes Age (y) Therapeutic Goal (%) Adults: >18 <7.0 Pediatrics: 13-18 <7.5 7-12 <8.0 0- 6 7.5-8.5 [place] [employer]. Diabetes Care 33(S1), Mar 2009. Performed By: #### T SPOT #### [facility] [address] [place] [address] HEPATIC FUNCTION PANELon Albumin [Mass/Vol] 4.3 g/dL Normal 3.4 - 5.0 [facility] Comment on above: Performed By: #### V ARZG #### [facility] [address] [place] [address] ALP [Catalytic activity/Vol] 73 U/L Normal 33 - 110 [facility] Comment on above: Performed By: #### V ARZG #### [facility] [address] [place] [address] ALT [Catalytic activity/Vol] 34 U/L Normal 7 - 45 [facility] Comment on above: Result Comment: Angela ents treated with Sulfasalazine may generate falsely decreased results for ALT. Performed By: #### V ARZG #### [place] [address] [place] [address] AST [Catalytic activity/Vol] 37 U/L Normal 9 - 39 [facility] Comment on above: Performed By: #### V ARZG #### [facility] [address] [place] [address] Bilirubin [Mass/Vol] 0.6 mg/dL Normal 0.0 - 1.2 [facility] Comment on above: Performed By: #### V ARZG #### [facility] [address] [place], [place] Bilirubin.indirect [Mass/Vol] 0.1 mg/dL Normal 0.0 - 0.3 [facility] Comment on above: Performed By: #### V ARZG #### [facility] [address] [place], [place] Protein [Mass/Vol] 7.1 g/dL Normal 6.4 - 8.2 [facility] Comment on above: Performed By: #### V ARZG #### [facility] [address] [place], [place] HEPATITIS B CORE AB-TOTALon 08-30-2021 HEP. B CORE AB-TOTAL Non-Reactive Normal NONREACTIVE [facility] Comment on above: Result Comment: Resu lts from patients taking biotin supplements or receiving high-dose biotin therapy should be interpreted with caution due to possible interference with this test. Providers may contact their local laboratory for further information. Performed By: #### H BAB3 #### [facility] [address] [place], [place] HEPATITIS B SURF ABon 2021 HEP B SURF AB <3.1 Normal <10 [facility] Comment on above: Result Comment: INTE RPRETIVE CRITERIA: <10 mIU/mL....NONREACTIVE >=10 mIU/mL...REACTIVE . Biotin interference may cause falsely decreased results. Patients taking a Biotin dose of up to 5 mg/day should refrain from taking Biotin for 24 hours before sample collection. Providers may contact their local laboratory for further information. Performed By: #### H BAB3 #### [facility] [address] [place], [place] Lab Specimen Source Normal [facility] Comment on above: Performed By: #### H BAB3 #### [facility] [address] [place], [place] Performed By: #### V ARZG #### [facility] [address] [place], [place] Performed By: #### H BSAG #### [facility] [address] [place], [place] Performed By: #### H IV #### [facility] [address] [place], [place] Performed By: #### T SPOT #### [facility] [address] [place] [address] HEPATITIS B SURFACE AGon HEP.B SURFACE AG Non-Reactive Normal NONREACTIVE [facility] Comment on above: Result Comment: Biot in interference may cause falsely decreased results. Patients taking a Biotin dose of up to 5 mg/day should refrain from taking Biotin for 24 hours before sample collection. Providers may contact their local laboratory for further information. Performed By: #### H BSAG #### [facility] [address] [place] [address] HEPATITIS C ABon 08-30-2021 HEPATITIS C AB Non-Reactive Normal NONREACTIVE [facility] Comment on above: Result Comment: Resu lts from patients taking biotin supplements or receiving high-dose biotin therapy should be interpreted with caution due to possible interference with this test. Providers may contact their local laboratory for further information. Performed By: #### H BAB3 #### [facility] [address] [place], [place] HIV 1/2 ANTIGEN/ANTIBODY SCR EEN WITH REFLEX TO CONFIRMATIONon 08-30-2021 HIV 1/2 AG/AB SCREEN Non-Reactive Normal NONREACTIVE [facility] Comment on above: Result Comment: HIV Ag/Ab screen is performed using the Siem[employer] HIV Ag/Ab Combo assay which detects the presence of HIV p24 antigen as well as antibodies to HIV-1 (Group M and O) and HIV-2. . No laboratory evidence of HIV infection. If acute HIV infection is suspected, consider testing for HIV RNA by PCR (viral load). Performed By: #### H IV #### [facility] [address] [place] [address] HIV 1+2 Ab Qn (S) Non-Reactive See Below [facility] Work Phone: Comment on above: SOURCE: Reference Ra nge: NONREACTIVE HIV Ag/Ab screen is performed using the [employer] HIV Ag/Ab Combo assay which detects the presence of HIV p24 antigen as well as antibodies to HIV-1 (Group M and O) and HIV-2..No laboratory evidence of HIV infection. If acute HIV infection is suspected, consider testing for HIV RNA by PCR (viral load). HLA CLASS I AB SCREEN,FCon 0 08-30-2021 HLA CLASS I AB SCREEN,FC Canceled Normal [facility] Comment on above: Order Comment: TEST HLA CLASS I AB SCREEN,FC WAS CANCELLED, 08/30/2021 15:15 ordered under wrong visit, reordered. please do not redraw. Performed By: #### H LAS1 #### [facility] [address] [place] [address] HLA CLASS II AB SCREEN,FCon 08-30-2021 HLA CLASS II AB SCREEN,FC Canceled Normal [facility] Comment on above: Order Comment: TEST HLA CLASS II AB SCREEN,FC WAS CANCELLED, 08/30/2021 15:15 ordered underwrong visit, reordered. please do not redraw. Performed By: #### H BAB3 #### [facility] [address] [place] [address] HLA-A,B,C LRon 08-30-2021 HLA-A LOCUS LR TYPE Canceled Normal [facility] Comment on above: Order Comment: TEST HLA-A,B,C LR WAS CANCELLED, 08/30/2021 15:15 ordered under wrong visit,reordered. please do not redraw. Performed By: #### T SPOT #### [facility] [address] [place] [address] HLA-B LOCUS LR TYPE Canceled Normal [facility] Comment on above: Order Comment: TEST HLA-A,B,C LR WAS CANCELLED, 08/30/2021 15:15 ordered under wrong visit,reordered. please do not redraw. Performed By: #### T SPOT #### [facility] [address] [place] [address] HLA-C LOCUS LR TYPE Canceled Normal [facility] Comment on above: Order Comment: TEST HLA-A,B,C LR WAS CANCELLED, 08/30/2021 15:15 ordered under wrong visit,reordered. please do not redraw. Performed By: #### T SPOT #### [facility] [address] [place] [address] HLA-DPB1 HR TYPINGon 022 HLA-DPB1 HR TYPING Canceled Normal [facility] Comment on above: Order Comment: TEST HLA-DPB1 HR TYPING WAS CANCELLED, 08/30/2021 15:15 ordered under wrongvisit, reordered. please do not redraw. Performed By: #### T SPOT #### [facility] [address] [place] [address] HLA-DQB1 HR TYPINGon 022 HLA-DQB1 HR TYPING Canceled Normal [facility] Comment on above: Order Comment: TEST HLA-DQB1 HR TYPING WAS CANCELLED, 08/30/2021 15:15 ordered under wrongvisit, reordered. please do not redraw. Performed By: #### T SPOT #### [facility] [address] [place] [address] HLA-DRB1/3/4/5 AND DQB1 LR T YPINGon 08-30-2021 HLA-DRB1/3/4/5 & DQB1 LR TYPING Canceled Normal [facility] Comment on above: Order Comment: TEST HLA-DRB1/3/4/5 AND DQB1 LR TYPING WAS CANCELLED, 08/30/2021 15:15 orderedunder wrong visit, reordered. please do not redraw. Performed By: #### H BAB3 #### [facility] [address] [place] [address] Hemoglobin A1Con 08-30-2021 Glucose [Mass/Vol] 100 mg/dL [facility]- [place] [facility] Work Phone: HbA1c (Bld) [Mass fraction] 5.1 % [facility]- [facility] Work Phone: Comment on above: Diagnosis of Diabete s-Adults Non-Diabetic: < or = 5.6% Increased risk for developing diabetes: 5.7-6.4% Diagnostic of diabetes: > or = 6.5%. Monitoring of Diabetes Age (y) Therapeutic Goal (%) Adults: >18 <7.0 Pediatrics: 13-18 <7.5 7-12 <8.0 0- 6 7.5-8.5 [place] [employer]. Diabetes Care 33(S1), Mar 2009. Hepatic Function Panelon Albumin BCP dye [Mass/Vol] 4.3 g/dL 3.4 - 5.0 [facility]- [place] [facility] Work Phone: Comment on above: SOURCE: ALP [Catalytic activity/Vol] 73 U/L 33 - 110 [facility] [place] [facility] Work Phone: ALT With P-5'-P [Catalytic activity/Vol] 34 U/L 7 - 45 [facility] [place] [facility] Work Phone: Comment on above: Patients treated wit h Sulfasalazine may generate falsely decreased results for ALT. AST With P-5'-P [Catalytic activity/Vol] 37 U/L 9 - 39 [facility] [place] [facility] Work Phone: Bilirubin [Mass/Vol] 0.6 mg/dL 0.0 - 1.2 [facility]- [place] [facility] Work Phone: Bilirubin.direct [Mass/Vol] 0.1 mg/dL 0.0 - 0.3 [facility] [place] [facility] Work Phone: Protein [Mass/Vol] 7.1 g/dL 6.4 - 8.2 [facility]- [place] [facility] Work Phone: Hepatitis B Surface Antibody on 08-30-2021 HBV surface Ag IA Ql <3.1 <10 [facility]- [place] [facility] Work Phone: Comment on above: SOURCE: INTERPRETIVE CRITERIA:<10 mIU/mL....NONREACTIVE >=10 mIU/mL...REACTIVE . Biotin interference may cause falsely decreased results. Patients taking a Biotin dose of up to 5 mg/day should refrain from taking Biotin for 24 hours before sample collection. Providers may contact their local laboratory for further information. Laboratory - Drug toxicology on 06-03-2022 Amphetamines Screen Ql Negative Cutoff 20 [facility]- [place] [facility] Work Phone: [phone] Barbiturates Screen Ql Negative Cutoff 50 [facility]- [place] [facility] Work Phone: [phone] Benzodiazepines Screen Ql Negative Cutoff 50 [facility]- [place] [facility] Work Phone: [phone] Cannabinoids Screen Ql Negative Cutoff 20 [facility]- [place] [facility] Work Phone: [phone] Cocaine Screen Ql Negative Cutoff 20 [facility]- [place] [facility] Work Phone: [phone] Methadone Screen Ql Negative Cutoff 25 [facility]ano r[facility]- [place] [facility] Work Phone: [phone] Methamphetamine Ql Negative Cutoff 20 [facility]- [place] [facility] Work Phone: [phone] Opiates Screen Ql Negative Cutoff 20 [facility]- [place] [facility] Work Phone: [phone] oxyCODONE Ql Negative Cutoff 20 [facility]- [place] [facility] Work Phone: [phone] Phencyclidine Screen Ql Negative Cutoff 10 [facility]- [place] [facility] Work Phone: [phone] Laboratory - HLA antigenson 08-30-2021 HLA-A locus Nom (Bld/Tiss) Canceled [facility] Work Phone: [phone] HLA-B locus Nom (Bld/Tiss) Canceled [facility] Work Phone: [phone] HLA-C locus Nom (Bld/Tiss) Canceled [facility] Work Phone: [phone] HLA-DP2 Ql (Bld/Tiss) Canceled [facility] Work Phone: [phone] HLA-DQB1 High resolution Nom (Bld/Tiss) Canceled [facility] Work Phone: [phone] HLA-DR+DQ Nom (Bld/Tiss) Canceled [facility] Work Phone: [phone] Laboratory - Hematology and Cell countson 08-30-2021 Erythrocyte distribution width (RBC) [Ratio] 13.2 % See Below [facility] [place] [facility] Work Phone: Comment on above: Reference Range: 11. 5 - 14.5 Hematocrit (Bld) [Volume fraction] 35.8 % below low threshold See Below [facility] [place] [facility] Work Phone: Comment on above: Reference Range: 36. 0 - 46.0 Hemoglobin (Bld) [Mass/Vol] 11.9 g/dL below low threshold See Below [facility] [place] [facility] Work Phone: Comment on above: Reference Range: 12. 0 - 16.0 MCHC (RBC) [Mass/Vol] 33.2 g/dL See Below [facility]- [facility]- [place] [facility] Work Phone: Comment on above: Reference Range: 32. 0 - 36.0 MCV (RBC) [Entitic vol] 95 fL 80 - 100 [facility] [place] [facility] Work Phone: Platelets (Bld) [#/Vol] 168 10*3/uL 150 - 450 [facility] [place] [facility] Work Phone: RBC (Bld) [#/Vol] 3.76 {x10E12/L} below low threshold See Below [facility]- [place] [facility] Work Phone: Comment on above: Reference Range: 4.0 0 - 5.20 WBC (Bld) [#/Vol] 6.9 10*3/uL 4.4 - 11.3 [facility]- [place] [facility] Work Phone: Laboratory - Microbiology an d Antimicrobial susceptibilityon 08-30-2021 EBV capsid IgG IA Qn (S) Positive Abnormal NEGATIVE [facility]- [place] [facility] Work Phone: Comment on above: SOURCE: EBV capsid IgM IA Qn (S) Negative NEGATIVE [facility]- [place] [facility] Work Phone: EBV early IgM IA Qn (S) Negative NEGATIVE [facility]- [place] [facility] Work Phone: EBV nuclear IgG IA Qn (S) Positive Abnormal NEGATIVE [facility]- [place] [facility] Work Phone: Nicotine+Metabolites, Serumo n 08-30-2021 Cotinine [Mass/Vol] <2 [facility]- [place] [facility] Work Phone: Nicotine [Mass/Vol] <2 [facility]- [place] [facility] Work Phone: Comment on above: Consistent with [...] developed and its performance characteristics determined by [facility]. It has not been cleared or approved by the [place] Food and Drug Administration. This test was performed in a CLIA certified laboratory and is intended for clinical purposes.Performed By: [facility] [place] [id number] Director: Eboni Izquierdo MD [id number]-[id number] e [Mass/Vol] <2 [facility]- [place] [facility] Work Phone: No Panel Informationon 08-30 Annotation comment [Interpretation] Narrative See Note [facility] [place] [facility] Work Phone: Comment on above: INTERPRETIVE INFORMA TION: Drug Screen 9 Panel, Serum or Plasma - Immunoassay Screen with Reflex to Mass Spectrometry Confirmation/Quantitation1. Methodology: Qualitative Immunoassay Screen2. Drugs/Drug classes reported as "Positive" are automatically reflexed to mass spectrometry confirmation/quantitation [...] developed and its performance characteristics determined by [facility]. It has not been cleared or approved by the [place] Food and Drug Administration. This test was performed in a CLIA certified laboratory and is intended for clinical purposes.Performed By: [facility] [place] [address] [id number] Director: Eboni Izquierdo MD 0.0 {/100_WBC} 0.0-0.0 [facility] - [place] [facility] Work Phone: SEE BELOW [facility]- [place] [facility] Work Phone: Comment on above: . EBV INTERPRETATION CHART. VCA-IGG VCA-IGM NA-IGG EA-IGG. PRIMARY ACUTE +/- +/- - +/-LATE ACUTE + +/- +/- +/-RECOVERING + - - +PREVIOUS INFECTION + - +/- - Canceled [facility] Work Phone: Comment on above: Test performed at [facility] Laboratory [facility], 6th Floor [address] [id number] Office VIsit (Pre-Transplant Surgery)on 08-30-2021 Follow-up visit [...] and donor allograft recipients. This data included [facility] data compared to National data readily [...] planning to get an appointment with her drug safety specialist for the patient in the next week or so. We have advised her that if she is unable to get an appointment in a timely fashion, we will refer her to a Observatory Director at . At this point, given the [...] 5. TIEDI: diabetes onset. Dialysis: Hemodialysis:Dialysis Center: [facility] Compliance/Tolerance/Con trol: good compliance with treatment. Pertinent History: congestive heart failure and diabetes. Referral: Dr. Lee Cash (tel: [phone]; fax: [phone]). I am seeing ZAYDA DAVIS at the referring provider's request for surgical suitability for kidney transplant candidate listing at [facility] [place]. History of Present Illness Comments: Ms. ZAYDA DAVIS is a 55 year old female with end stage renal disease secondary to diabetes mellitus. She undergoes hemodialysis TThS at [facility]. Ms. Davis presents today for a surgical evaluation towards potential kidney transplantation. She is accompanied by her sister and her daughter. She recently started dialysis in 2020 and uses fistula for dialysis acce (more content not included)... Normal [facility] PHOSPHORUSon 08-30-2021 Phosphate [Mass/Vol] 4.6 mg/dL Normal 2.5 - 4.9 [facility] Comment on above: Result Comment: The performance characteristics of phosphorus testing in heparinized plasma have been validated by the individual laboratory site where testing is performed. Testing on heparinized plasma is not approved by the FDA; however, such approval is not necessary. Performed By: #### V ARZG #### [facility] [address] [place] [address] Phosphorus, Serumon 08-31-19 22 Phosphate [Mass/Vol] 4.6 mg/dL 2.5 - 4.9 [facility]- [place] [facility] Work Phone: Comment on above: SOURCE: The performa nce characteristics of phosphorus testing in heparinized plasma have been validated by the individual laboratory site where testing is performed. Testing on heparinized plasma is not approved by the FDA; however, such approval is not necessary. SYPHILIS SCREENING WITH REFL EXon 08-30-2021 SYPHILIS TOTAL AB Non-Reactive Normal NONREACTIVE [facility] Comment on above: Result Comment: No s ignificant level of Treponema pallidum antibody detected. Repeat testing in 2 to 4 weeks may be considered if early infection or incubating syphilis infection is suspected. Performed By: #### H BAB3 #### [facility] [address] [place] [address] T. pallidum IgG+IgM IA Ql (S) Non-Reactive See Below [facility]- [facility] [facility] Work Phone: Comment on above: SOURCE: Reference Ra nge: NONREACTIVENo significant level of Treponema pallidum antibody detected. Repeat testing in 2 to 4 weeks may be considered if early infection or incubating syphilis infection is suspected. T-SPOT. TBon 08-30-2021 T-SPOT. TB Negative NEGATIVE [facility]- [facility] Work Phone: Comment on above: Reference [...] fall s in the last year [facility] Work Phone: Tobacco use status CPHS b) No [facility] Work Phone: UA MICROSCOPICon 08-30-2021 BACTERIA 4+ /HPF Abnormal [facility] Comment on above: Performed By: #### V YAJAIRAG #### [facility] [address] [place] [address] HYALINE CAST 4+ /LPF Abnormal [facility] Comment on above: Performed By: #### V ARJimG #### [facility] [address] [place] [address] Mucus Ql (Urine sed) 1+ /LPF Normal [facility] Comment on above: Performed By: #### V ARZG #### [facility] [address] [place] [address] RBC 4 /HPF Normal 0-5 [facility] Comment on above: Performed By: #### V ARJimG #### [facility] [address] [place] [address] SQUAMOUS EPITH. CELLS 13 /HPF Normal [facility] Comment on above: Performed By: #### V YAJAIRAG #### [facility] [address] [place] [address] WBC 16 /HPF Abnormal 0-5 [facility] Comment on above: Performed By: #### Ramón WORLEYZG #### [facility] [address] [place] [address] URINALYSISon 08-30-2021 Appearance (U) HAZY Normal CLEAR [facility] Comment on above: Performed By: #### H BAB3 #### [facility] [address] [place] [address] Bilirubin Ql (U) Negative Normal NEGATIVE [facility] Comment on above: Performed By: #### H BAB3 #### [facility] [address] [place] [address] Color (U) YELLOW Normal STRAW,YELLOW [facility] Comment on above: Performed By: #### H BAB3 #### [facility] [address] [place] [address] Glucose Ql (U) Negative Normal NEGATIVE [facility] Comment on above: Performed By: #### H BAB3 #### [facility] [address] [place] [address] Hemoglobin Ql (U) Negative Normal NEGATIVE [facility] Comment on above: Performed By: #### H BAB3 #### [facility] [address] [place] [address] Ketones Ql (U) Negative Normal NEGATIVE [facility] Comment on above: Performed By: #### H BAB3 #### [facility] [address] [place] [address] Leukocyte esterase Test strip Ql (U) TRACE Abnormal NEGATIVE [facility] Comment on above: Performed By: #### H BAB3 #### [facility] [address] [place] [address] Nitrite Ql (U) Negative Normal NEGATIVE [facility] Comment on above: Performed By: #### H BAB3 #### [facility] [address] [place] [address] pH (U) 5.0 [pH] Normal 5.0 - 8.0 [facility] Comment on above: Performed By: #### H BAB3 #### [facility] [address] [place] [address] Protein Ql (U) 100 (2+) Abnormal NEGATIVE [facility] Comment on above: Performed By: #### H BAB3 #### [facility] [address] [place] [address] Specific gravity (U) [Rel density] 1.015 Normal 1.005 - 1.035 [facility] Comment on above: Performed By: #### H BAB3 #### [facility] [address] [place] [address] Urobilinogen (U) [Mass/Vol] mg/dL Normal 0.0 - 1.9 [facility] Comment on above: Performed By: #### H BAB3 #### [facility] [address] [place] [address] Urinalysison 08-30-2021 Color (U) YELLOW See Below [facility]- [place] [facility] Work Phone: Comment on above: Reference Range: STR AW,YELLOW Glucose Ql (U) Negative NEGATIVE [facility] - [place] [facility] Work Phone: Ketones Ql (U) Negative NEGATIVE [facility] - [place] [facility] Work Phone: Leukocyte esterase Test strip Ql (U) TRACE Abnormal NEGATIVE [facility]- [place] [facility] Work Phone: pH (U) 5.0 [pH] 5.0 - 8.0 [facility]- [place] [facility] Work Phone: Protein (U) [Mass/Vol] 100 (2+) Abnormal NEGATIVE [facility] -[facility]- [place] [facility] Work Phone: RBC (U) [#/Vol] Negative NEGATIVE [facility]-Surger y- [place] [facility] Work Phone: Specific gravity (U) [Rel density] 1.015 1 See Below [facility]- [place] [facility] Work Phone: Comment on above: Reference Range: 1.0 05 - 1.035 Urinalysis <2.0 0.0 - 1.9 [facility]- [place] [facility] Work Phone: Urinalysis HAZY CLEAR [facility]- [place] [facility] Work Phone: [phone] Urinalysis, Microscopicon Hyaline casts LM Ql (Urine sed) 4+ Abnormal [facility]- [place] [facility] Work Phone: [phone] Urinalysis, Microscopic 1+ [facility]- [place] [facility] Work Phone: [phone] Urinalysis, Microscopic 4+ Abnormal [facility]- [place] [facility] Work Phone: [phone] Urinalysis, Microscopic 13 {/HPF} [facility]- [place] [facility] Work Phone: [phone] Urinalysis, Microscopic 4 {/HPF} 0-5 [facility]- [place] [facility] Work Phone: [phone] Urinalysis, Microscopic 16 {/HPF} Abnormal 0-5 [facility]- [place] [facility] Work Phone: [phone] VARICELLA ZOSTER IGG ABon VARICELLA ZOSTER IGG AB Positive Normal NEGATIVE [facility] Comment on above: Result Comment: INTE RPRETATIVE [...] assays. Performed By: #### V KYLIE #### [facility] [address] [place] [address] Varicella Zoster IgG Antibod yon 08-30-2021 VZV IgG IA Ql (S) Positive NEGATIVE [facility]-Surg [facility]- [place] [facility] Work Phone: Comment on above: SOURCE: INTERPRETATI [...] Specimen sent,Resul ts will be sent to [facility] Comment on above: Performed By: #### C BCD #### Main Laboratory [facility] [address] [place] [address] FOLIC ACIDon 03-02-2019 FOLIC ACID 10.7 ng/mL Normal 3.1-17.5 [facility] Comment on above: Performed By: #### V B12, FOL, LIPID, MG, T4, TSH #### [facility] [address] [place] [address] GLYCOHEMOGLOBIN (A1C)on Glucose [Mass/Vol] 151 mg/dL Normal [facility] Comment on above: Performed By: #### G LY #### [facility] [address] [place] [address] HbA1c (Bld) [Mass fraction] 6.9 % Normal [facility] Comment on above: Result Comment: Inte rpretation [...] LOSS. Performed By: #### G LY #### [facility] [address] [place] [address] LIPID PROFILE (FASTING)on Cholesterol [Mass/Vol] 115 mg/dL Normal 0-200 [facility] Comment on above: Performed By: #### V B12, FOL, LIPID, MG, T4, TSH #### [facility] [address] [place] [address] Cholesterol in HDL [Mass/Vol] 34 mg/dL Normal 40-60 [facility] Comment on above: Performed By: #### V B12, FOL, LIPID, MG, T4, TSH #### [facility] [address] [place] [address] Cholesterol in LDL [Mass/Vol] 54 mg/dL Normal 0-130 [facility] Comment on above: Performed By: #### V B12, FOL, LIPID, MG, T4, TSH #### [facility] [address] [place] [address] Cholesterol.total/Chol esterol in HDL [Mass ratio] 3.4 mg/dl Normal 3.7-5.6 [facility] Comment on above: Performed By: #### V B12, FOL, LIPID, MG, T4, TSH #### [facility] [address] [place] [address] Triglyceride [Mass/Vol] 137 mg/dL Normal 0-150 [facility] Comment on above: Performed By: #### V B12, FOL, LIPID, MG, T4, TSH #### [facility] [address] [place] [address] VLDL CALCULATION 27 mg/dl Normal 5-40 [facility] Comment on above: Performed By: #### V B12, FOL, LIPID, MG, T4, TSH #### [facility] [address] [place] [address] MAGNESIUMon 03-02-2019 Magnesium [Mass/Vol] 1.8 mg/dL Normal 1.8-2.4 [facility] Comment on above: Performed By: #### V B12, FOL, LIPID, MG, T4, TSH #### [facility] [address] [place] [address] MR CONSULTon 03-02-2019 MR CONSULT Patient name: ZAYDA DAVIS MR#: [id number] Location: [place] Acc#: [id number] Admit Date: 03/01/19 : 1965 Age: 53 Sex: F Dictated By: Jerry Logan MD Signing Physician: DICTATED BY: Jerry Logan M.D. SIGNING PHYSICIAN: DATE OF SERVICE: 03/02/2019 CHIEF COMPLAINT: Major depression and weakness with confusion. HISTORY OF PRESENT ILLNESS: This 53-year-old female has past medical history o stroke, diabetes, COPD, hypertension, high cholesterol, chronic renal insufficiency, on Eliquis. Eventually, she was shopping at [employer] with her sister, she was in a wheelchair, she started shaking and falling backward without losing consciousness. She had multiple episodes that lasted less than 1 minute. Eventually, her sister called 911, and she is brought in to the emergency room at [place]. There she was evaluated, they discussed her case with her neurologist, Dr. Tian, and he confirmed that she had multiple testing in past, including EEG, MRI of brain, eventually never had any positive findings including an echocardiogram, carotid ultrasound in this September. She had possible depression and pseudoseizures. The patient was admitted to [facility] after discussing with Dr. Mcnally. When I am trying to talk to her, she is very much alert and answering questions. She has no acute distress, cough, phlegm, fever, chills, nausea, vomiting, diarrhea, or dysuria. The patient in the ER at [place] was very anxious and teary, and she [...] LABORATORY WORK: I reviewed her laboratories from [facility]. Her ABGs, pH .38, pCO2 47, PO2 39.7. WBC count 6.85, hemoglobin 12.6, hematocrit 37, platelet count 202,000. Urine culture is essentially negative. CT head shows old left infarct. EKG has normal sinus rhythm. Her toxicological screen was negative. ASSESSMENT AND PLAN: 1. The patient has major depression with weakness, though she has been sitting ut no obvious seizures. Admitted to [facility] for further psych treatment. 2. Chronic [...] will do her physical therapy. CPT code 59843. MONI/LANETTE @ 01:21 @ 02:50 # [id number] ____ Jerry Logan M.D. Electronically Signed Date/Time: 03/03/19 1220 Electronically Signed Date/Time: 03/03/19 1220 Normal [facility] RAPID PLASMA REAGINon 2018 RAPID PLASMA REAGIN NONREACTIVE Normal NONREACTIVE [facility] Comment on above: Performed By: #### R FL #### [address] [address] SED RATEon 03-02-2019 SED RATE 35 mm/hr High 0-30 [facility] Comment on above: Performed By: #### E SR #### [address] [address] THYROID STIM HORMONEon 03-02 THYROID STIM HORMONE 2.370 uIU/mL Normal 0.358-3.74 [facility] Comment on above: Performed By: #### V B12, FOL, LIPID, MG, T4, TSH #### [facility] [address] [place] [address] THYROXINE (T4)on 03-02-2019 T4 [Mass/Vol] 7.9 ug/dL Normal 4.8-13.9 [facility] Comment on above: Performed By: #### V B12, FOL, LIPID, MG, T4, TSH #### [address] [address] VITAMIN B 12on 03-02-2019 Cobalamin (Vitamin B12) [Mass/Vol] 383 pg/mL Normal 254-1320 [facility] Comment on above: Performed By: #### V B12, FOL, LIPID, MG, T4, TSH #### [address] [address] Mill[facility] Collectionon 10-12 [facility] Comment on above: Result Comment: Spec imen sent,Results will be sent to Physician Performed at [facility],[address] [facility],[place] [address] Performed By: #### C BCD #### [facility] [address] [place] [address] SPINE LUMBOSACRAL 2 VIEWon 0 10-12-2018 SPINE LUMBOSACRAL 2 VIEW *FINAL Date of Service: 10/12/2018 12:32 Adm #: [id number] Reading Dr:KETAN HICKS Signoff Dr: KETAN HICKS [...] spine to left. 2. Mild degenerative changes [id number] This report has been produced using speech recognition. Original Interpreting Physician: KETAN HICKS M.D. Original Transcribed [facility]/Date[facility] Oct 12 2018 1:54P Original Electronically Signed by/Date: KETAN HICKS M.D. Oct 12 2018 1:54P Addendum Interpreting Physician: Addendum Transcribed by/Date: NO ADDENDUM Addendum Electronically Signed by/Date: [facility]on 07-13 [facility] Comment on above: Result Comment: Spec imen sent,Results will be sent to Physician Performed at [address] [address] Performed By: #### C BCD #### Main Laboratory [address] [address] THERAPY NTon 06-16-2018 THERAPY NT HNO ID: [id number] Author: Aurelia (Lead Cook) Lion Service: Speech/Swallow Author Type: Speech Language [...] folds, fully clearing laryngeal vestibule post swallow. 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 with concern for aspiraiton due to recurrent PNA Reason for Speech Therapy Consult: history of CVA with suspected dysphagia Relevant Past Medical History: CVA, dysphagia, aphasia Patient Report: "I've been eating fine" Home Environment Prior Swallowing Function/Diet Textures: Dysphagia Level 3 (Dysphagia Advanced);Thin liquids Please see discipline specific clinical documentation flowsheet for complete details for this therapy evaluation/treatment. SIGNATURE: [facility] CONCRETE WALL GRINDER OPERATOR PATIENT NAME: Zayda Davis DATE: June 16, 2018 TIME: 12:25 PM Normal [facility] XR MOD BARIUM SWALLOW W SPEE Anna [...] Jun 16 2018 1:30PM EST [id number] Normal [facility] CHEST 2 VIEWon 05-14-2018 CHEST 2 VIEW *FINAL Date of Service: 05/14/2018 06:06 Adm #: [id number] Reading Dr:MIGNON HORTA Signoff Dr: MIGNON HORTA [...] Physician: MIGNON HORTA M.D. Original Transcribed by/Date: PSCB May 14 2018 8:35A Original Electronically Signed by/Date: MIGNON HORTA M.D. May 14 2018 8:35A Addendum Interpreting Physician: Addendum Transcribed by/Date: NO ADDENDUM Addendum Electronically Signed by/Date: [facility] POCT GLUCOSEon 05-14-2018 Glucose [Mass/Vol] 202 mg/dL High 65-99 [facility] Comment on above: Performed By: #### C BCD #### [facility] [address] [place] [address] Glucose [Mass/Vol] 214 mg/dL High 65-99 [facility] Comment on above: Performed By: #### C BCD #### [facility] [address] [place] [address] Glucose [Mass/Vol] 142 mg/dL High 65-99 [facility] Comment on above: Performed By: #### C BCD #### [facility] [address] [place] [address] Glucose [Mass/Vol] 56 mg/dL Low 65-99 [facility] Comment on above: Performed By: #### C BCD #### [facility] [address] [place] [address] Glucose [Mass/Vol] 71 mg/dL Normal 65-99 [facility] Comment on above: Performed By: #### C BCD #### [facility] [address] [place] [address] Glucose [Mass/Vol] 57 mg/dL Low 65-99 [facility] Comment on above: Performed By: #### C BCD #### [facility] [address] [place] [address] Glucose [Mass/Vol] 87 mg/dL Normal 65-99 [facility] Comment on above: Performed By: #### C BCD #### [facility] [address] [facility] [place] [address] RENAL FUNCTION PANELon 05-14 Albumin [Mass/Vol] 2.1 g/dL Low 3.5-5.0 [facility] Comment on above: Performed By: #### C BCD #### [facility] [address] [place] [address] Anion gap [Moles/Vol] 18 mmol/L Normal 0-19 [facility] Comment on above: Performed By: #### C BCD #### [facility] [place] [address] [place] [address] Calcium [Mass/Vol] 7.9 mg/dL Low 8.5-10.4 [facility] Comment on above: Performed By: #### C BCD #### [facility] [place] [address] [place] [address] Chloride [Moles/Vol] 103 mmol/L Normal 97-107 [facility] Comment on above: Performed By: #### C BCD #### [facility] [place] [address] [place] [address] CO2 [Moles/Vol] 17 mmol/L Low 24-31 [facility] Comment on above: Performed By: #### C BCD #### [facility] [place] [address] [place] [address] Creatinine [Mass/Vol] 2.8 mg/dL High 0.4-1.6 [facility] Comment on above: Performed By: #### C BCD #### [facility] [place] [address] [place] [address] Glucose [Mass/Vol] 92 mg/dL Normal 65-99 [facility] Comment on above: Performed By: #### C BCD #### [facility] [place] [address] [place] [address] Phosphate [Mass/Vol] 4.6 mg/dL High 2.5-4.5 [facility] Comment on above: Performed By: #### C BCD #### [facility] [place] [address] [place] [address] Potassium [Moles/Vol] 3.8 mmol/L Normal 3.4-5.1 [facility] Comment on above: Performed By: #### C BCD #### [facility] [place] [address] [place] [address] Sodium [Moles/Vol] 138 mmol/L Normal 133-145 [facility] Comment on above: Performed By: #### C BCD #### [facility] [address] [place] [address] Urea nitrogen [Mass/Vol] 67 mg/dL High 8-25 [facility] Comment on above: Performed By: #### C BCD #### [facility] [address] [place] [address] Urea nitrogen/Creatinine [Mass ratio] High 8- [facility] Comment on above: Result Comment: 23.9 Performed at [place] [address] [place] [address] Performed By: #### C BCD #### [place] [address] [place] [address] BLOOD CULTUREon 05-13-2018 Bacteria identified Cx Nom (Bld) Specimen source XXX: BLOOD Service Cmnt XXX-Imp: NONE Bacteria identified: NO GROWTH 5 DAYS Performed at [place] [address] [facility] [place] [address] : FINAL 05/13/2018 [facility] Comment on above: Performed By: #### L ACV #### [facility] [address] [place] [address] POCT GLUCOSEon 05-13-2018 Glucose [Mass/Vol] 84 mg/dL Normal 65-99 [facility] Comment on above: Performed By: #### C BCD #### [facility] [address] [place] [address] Glucose [Mass/Vol] 151 mg/dL High 65-99 [facility] Comment on above: Performed By: #### C BCD #### [facility] [address] [place] [address] Glucose [Mass/Vol] 251 mg/dL High 65-99 [facility] Comment on above: Performed By: #### C BCD #### [facility] [address] [place] [address] Glucose [Mass/Vol] 215 mg/dL High 65-99 [facility] Comment on above: Performed By: #### C BCD #### [facility] [address] [place] [address] Glucose [Mass/Vol] 322 mg/dL High 65-99 [facility] Comment on above: Performed By: #### C BCD #### [facility] [place] [address] [place] [address] POTASSIUM(K+)on 05-13-2018 Potassium [Moles/Vol] Normal 3.4-5.1 [facility] Comment on above: Result Comment: 4.2 Performed at [place] [address] [place] [address] Performed By: #### C BCD #### [facility] [place] [address] [place] [address] RENAL FUNCTION PANELon 05-13 Albumin [Mass/Vol] 2.1 g/dL Low 3.5-5.0 [facility] Comment on above: Performed By: #### C BCD #### [place] [address] [place] [address] Anion gap [Moles/Vol] 15 mmol/L Normal 0-19 [facility] Comment on above: Performed By: #### C BCD #### [place] [address] [place] [address] Calcium [Mass/Vol] 8.2 mg/dL Low 8.5-10.4 [facility] Comment on above: Performed By: #### C BCD #### [place] [address] [place] [address] Chloride [Moles/Vol] 101 mmol/L Normal 97-107 [facility] Comment on above: Performed By: #### C BCD #### [facility] [place] [address] [place] [address] CO2 [Moles/Vol] 18 mmol/L Low 24-31 [facility] Comment on above: Performed By: #### C BCD #### [facility] [place] [address] [place] [address] Creatinine [Mass/Vol] 2.6 mg/dL High 0.4-1.6 [facility] Comment on above: Performed By: #### C BCD #### [facility] [place] [address] [place] [address] Glucose [Mass/Vol] 269 mg/dL High 65-99 [facility] Comment on above: Performed By: #### C BCD #### [facility] [place] [address] [place] [address] Phosphate [Mass/Vol] 4.9 mg/dL High 2.5-4.5 [facility] Comment on above: Performed By: #### C BCD #### [facility] [address] [place] [place] [address] Potassium [Moles/Vol] SAMPLE HEMOLYZED T O BE RECOLLECTED Normal 3.4-5.1 [facility] Comment on above: Performed By: #### C BCD #### [facility] [place] [address] [place] [address] Sodium [Moles/Vol] 134 mmol/L Normal 133-145 [facility] Comment on above: Performed By: #### C BCD #### [facility] [place] [address] [place] [address] Urea nitrogen [Mass/Vol] 67 mg/dL High 8-25 [facility] Comment on above: Performed By: #### C BCD #### [facility] [place] [address] [place] [address] Urea nitrogen/Creatinine [Mass ratio] High 8-21 [facility] Comment on above: Result Comment: 25.8 Performed at [place] [address] [place] [address] Performed By: #### C BCD #### [facility] [place] [address] [place] [address] BASIC METABOLIC PANELon 04-30 Anion gap [Moles/Vol] 14 mmol/L Normal 0-19 [facility] Comment on above: Performed By: #### C BCD #### [facility] [place] [address] [place] [address] Calcium [Mass/Vol] Low 8.5-10.4 [facility] Comment on above: Result Comment: 7.8 Performed at [place] [address] [place] [address] Performed By: #### C BCD #### [facility] [place] [address] [place] [address] Chloride [Moles/Vol] 102 mmol/L Normal 97-107 [facility] Comment on above: Performed By: #### C BCD #### [facility] [address] [place] [address] CO2 [Moles/Vol] 20 mmol/L Low 24-31 [facility] Comment on above: Performed By: #### C BCD #### [facility] [address] [place] [address] Creatinine [Mass/Vol] 2.8 mg/dL High 0.4-1.6 [facility] Comment on above: Performed By: #### C BCD #### [facility] [address] [place] [address] Glucose [Mass/Vol] 314 mg/dL High 65-99 [facility] Comment on above: Performed By: #### C BCD #### [facility] [address] [place] [address] Potassium [Moles/Vol] 4.6 mmol/L Normal 3.4-5.1 [facility] Comment on above: Performed By: #### C BCD #### [facility] [address] [place] [address] Sodium [Moles/Vol] 136 mmol/L Normal 133-145 [facility] Comment on above: Performed By: #### C BCD #### [facility] [address] [place] [address] Urea nitrogen [Mass/Vol] 60 mg/dL High 8-25 [facility] Comment on above: Performed By: #### C BCD #### [facility] [address] [place] [address] Urea nitrogen/Creatinine [Mass ratio] 21.4 RATIO High 8-21 [facility] Comment on above: Performed By: #### C BCD #### [facility] [address] [place] [address] CBC with Diffon 05-12-2018 AB IMMATURE NEUT 0.17 K/UL High 0.0-0.1 [facility] Comment on above: Performed By: #### C BCD #### [facility] [address] [place] [address] ABS BASO 0.01 K/UL Normal 0.00-0.22 [facility] Comment on above: Performed By: #### C BCD #### [facility] [address] [place] [address] ABS EOS 0.00 K/UL Normal 0-0.45 [facility] Comment on above: Performed By: #### C BCD #### [facility] [address] [place] [address] ABS NEUTROPHILS 9.22 K/UL High 1.8-7.7 [facility] Comment on above: Performed By: #### C BCD #### [facility] [address] [place] [address] Basophils/100 WBC (Bld) 0.10 % Normal 0-1 [facility] Comment on above: Performed By: #### C BCD #### [facility] [address] [place] [address] DIFF TYPE AUTO DIFF Normal [facility] Comment on above: Performed By: #### C BCD #### [facility] [address] [place] [address] Eosinophils/100 WBC (Bld) 0.00 % Normal 0-3 [facility] Comment on above: Performed By: #### C BCD #### [facility] [address] [place] [address] Lymphocytes (Bld) [#/Vol] 0.41 10*3/uL Low 1.2-3.2 [facility] Comment on above: Performed By: #### C BCD #### [facility] [address] [place] [address] Lymphocytes/100 WBC (Bld) 4.10 % Low 20-40 [facility] Comment on above: Performed By: #### C BCD #### [facility] [address] [place] [address] Monocytes (Bld) [#/Vol] 0.25 10*3/uL Normal 0-0.8 [facility] Comment on above: Performed By: #### C BCD #### [facility] [address] [place] [address] Monocytes/100 WBC (Bld) 2.50 % Normal 0-8 [facility] Comment on above: Performed By: #### C BCD #### [place] [address] [place] [address] Neutrophils/100 WBC (Bld) 91.60 % High 50-70 [facility] Comment on above: Performed By: #### C BCD #### [place] [address] [place] [address] Neutrophils/100 WBC (Bld) 1.70 % High 0.0-1.0 [facility] Comment on above: Performed By: #### C BCD #### [place] [address] [place] [address] Platelets (Bld) [#/Vol] CONSISTENT WITH REPORTED RESULTS [facility] Comment on above: Performed By: #### C BCD #### [place] [address] [address] Poikilocytosis 1+ Normal [facility] Comment on above: Performed By: #### C BCD #### [place] [address] [facility] [place] [address] Polychromasia Occasional [facility] Comment on above: Performed By: #### C BCD #### [place] [address] [facility] [place] [address] RBC morphology finding Nom (Bld) CONSISTENT WITH REPORTED RESULTS [facility] Comment on above: Performed By: #### C BCD #### [place] [address] [place] [address] WBC MORPHOLOGY SMEAR REVIEWED AND F OUND CONSISTENT WITH AUTOMATED DIFFERENTIAL [facility] Comment on above: Performed By: #### C BCD #### [place] [address] [place] [address] ABS.NEUT.CALCULATED Normal [facility] Comment on above: Result Comment: 12.19 Performed at [place] [address] [place] [address] Performed By: #### C BCD #### [place] [address] [place] [address] Erythrocyte distribution width (RBC) [Ratio] 12.8 % Normal 11.7-15.0 [facility] Comment on above: Performed By: #### C BCD #### [place] [address] [place] [address] Hematocrit (Bld) [Volume fraction] 32.5 % Low 36-44 [facility] Comment on above: Performed By: #### C BCD #### [place] [address] [place] [address] Hemoglobin (Bld) [Mass/Vol] 10.5 g/dL Low 12.0-15.0 [facility] Comment on above: Performed By: #### C BCD #### [place] [address] [place] [address] MCH (RBC) [Entitic mass] 28.9 pg Normal 26-34 [facility] Comment on above: Performed By: #### C BCD #### [place] [address] [place] [address] MCHC (RBC) [Mass/Vol] 32.3 % Normal 31-37 [facility] Comment on above: Performed By: #### C BCD #### [place] [address] [place] [address] MCV (RBC) [Entitic vol] 89.5 fL Normal 80-100 [facility] Comment on above: Performed By: #### C BCD #### [place] [address] [place] [address] MEAN PLT VOL 13.3 CU High 7.0-12.6 [facility] Comment on above: Performed By: #### C BCD #### [place] [address] [place] [address] NRBC'S 0 /100 WBC Normal 0 [facility] Comment on above: Performed By: #### C BCD #### [place] [address] [place] [address] Platelets (Bld) [#/Vol] 200 10*3/uL Normal 150-450 [facility] Comment on above: Performed By: #### C BCD #### [facility] [place] [address] [place] [address] RBC (Bld) [#/Vol] 3.63 M/UL Low 4.0-4.9 [facility] Comment on above: Performed By: #### C BCD #### [facility] [place] [address] [place] [address] RDW-SD 42.2 FL Normal 37.0-54.0 [facility] Comment on above: Performed By: #### C BCD #### [facility] [address] [address] WBC (Bld) [#/Vol] 10.1 10*3/uL Normal 4.5-11.0 [facility] Comment on above: Performed By: #### C BCD #### [address] [address] CHEST PORTABLEon 05-12-2018 CHEST PORTABLE *FINAL Date of Service: 05/12/2018 06:43 Adm #: [id number] Reading Dr:OLAYINKA ANDRADE Signoff Dr: OLAYINKA ANDRADE [...] Physician: OLAYINKA ANDRADE M.D. Original Transcribed by/Date: [facility] May 12 2018 8:47A Original Electronically Signed by/Date: OLAYINKA ANDRADE M.D. May 12 2018 8:47A Addendum Interpreting Physician: Addendum Transcribed by/Date: NO ADDENDUM Addendum Electronically Signed by/Date: Normal [facility] POCT GLUCOSEon 05-12-2018 Glucose [Mass/Vol] 273 mg/dL High 65-99 [facility] Comment on above: Performed By: #### C BCD #### [facility] [address] [place] [address] Glucose [Mass/Vol] 304 mg/dL High 65-99 [facility] Comment on above: Performed By: #### C BCD #### [facility] [address] [place] [address] Glucose [Mass/Vol] 283 mg/dL High 65-99 [facility] Comment on above: Performed By: #### C BCD #### [facility] [address] [place] [address] BASIC METABOLIC PANELon 04-30-2019 Anion gap [Moles/Vol] 15 mmol/L Normal 0-19 [facility] Comment on above: Performed By: #### U ACUL #### [facility] [address] [place] [address] Calcium [Mass/Vol] Low 8.5-10.4 [facility] Comment on above: Result Comment: 7.6 Performed at [place] [address] [place] [address] Performed By: #### U ACUL #### [place] [address] [place] [address] Chloride [Moles/Vol] 103 mmol/L Normal 97-107 [facility] Comment on above: Performed By: #### U ACUL #### [facility] [address] [place] [address] CO2 [Moles/Vol] 17 mmol/L Low 24-31 [facility] Comment on above: Performed By: #### U ACUL #### [facility] [address] [place] [address] Creatinine [Mass/Vol] 2.8 mg/dL High 0.4-1.6 [facility] Comment on above: Performed By: #### U ACUL #### [facility] [address] [place] [address] Glucose [Mass/Vol] 282 mg/dL High 65-99 [facility] Comment on above: Performed By: #### U ACUL #### [facility] [place] [address] [place] [address] Potassium [Moles/Vol] 4.7 mmol/L Normal 3.4-5.1 [facility] Comment on above: Performed By: #### U ACUL #### [facility] [place] [address] [place] [address] Sodium [Moles/Vol] 135 mmol/L Normal 133-145 [facility] Comment on above: Performed By: #### U ACUL #### [facility] [place] [address] [place] [address] Urea nitrogen [Mass/Vol] 51 mg/dL High 8-25 [facility] Comment on above: Performed By: #### U ACUL #### [facility] [place] [address] [place] [address] Urea nitrogen/Creatinine [Mass ratio] 18.2 RATIO Normal 8-21 [facility] Comment on above: Performed By: #### U ACUL #### [facility] [place] [address] [place] [address] CBC with Diffon 05-11-2018 AB IMMATURE NEUT 0.09 K/UL Normal 0.0-0.1 [facility] Comment on above: Performed By: #### U ACUL #### [facility] [place] [address] [place] [address] ABS BASO 0.02 K/UL Normal 0.00-0.22 [facility] Comment on above: Performed By: #### U ACUL #### [facility] [place] [address] [place] [address] ABS EOS 0.00 K/UL Normal 0-0.45 [facility] Comment on above: Performed By: #### U ACUL #### [facility] [place] [address] [place] [address] ABS NEUTROPHILS 12.37 K/UL High 1.8-7.7 [facility] Comment on above: Performed By: #### U ACUL #### [facility] [place] [address] [place] [address] Basophils/100 WBC (Bld) 0.10 % Normal 0-1 [facility] Comment on above: Performed By: #### U ACUL #### [facility] [address] [place] [address] DIFF TYPE AUTO DIFF Normal [facility] Comment on above: Performed By: #### U ACUL #### [facility] [address] [place] [address] Eosinophils/100 WBC (Bld) 0.00 % Normal 0-3 [facility] Comment on above: Performed By: #### U ACUL #### [facility] [address] [place] [address] Granulocytes/100 WBC (Bld) 1+ Normal [facility] Comment on above: Performed By: #### U ACUL #### [place] [address] [place] [address] Lymphocytes (Bld) [#/Vol] 0.38 10*3/uL Low 1.2-3.2 [facility] Comment on above: Performed By: #### U ACUL #### [place] [address] [place] [address] Lymphocytes/100 WBC (Bld) 2.80 % Low 20-40 [facility] Comment on above: Performed By: #### U ACUL #### [facility] [address] [place] [address] Monocytes (Bld) [#/Vol] 0.56 10*3/uL Normal 0-0.8 [facility] Comment on above: Performed By: #### U ACUL #### [facility] [address] [place] [address] Monocytes/100 WBC (Bld) 4.20 % Normal 0-8 [facility] Comment on above: Performed By: #### U ACUL #### [facility] [address] [place] [address] Neutrophils/100 WBC (Bld) 92.20 % High 50-70 [facility] Comment on above: Performed By: #### U ACUL #### [facility] [address] [place] [address] Neutrophils/100 WBC (Bld) 0.70 % Normal 0.0-1.0 [facility] Comment on above: Performed By: #### U ACUL #### [facility] [address] [place] [address] Ovalocytes Occasional Normal [facility] Comment on above: Performed By: #### U ACUL #### [facility] [address] [place] [address] Platelets (Bld) [#/Vol] CONSISTENT WITH REPORTED RESULTS [facility] Comment on above: Performed By: #### U ACUL #### [facility] [address] [place] [address] Poikilocytosis 1+ Normal [facility] Comment on above: Performed By: #### U ACUL #### [facility] [id number] [place] [address], [place] [address] Tear Drop Cells Occasional Normal [facility] Comment on above: Performed By: #### U ACUL #### [address] [place] [address] WBC MORPHOLOGY SMEAR REVIEWED AND F OUND CONSISTENT WITH AUTOMATED DIFFERENTIAL [facility] Comment on above: Performed By: #### U ACUL #### [place] [address] [facility] [place] [address] ABS.NEUT.CALCULATED Normal [facility] Comment on above: Result Comment: 12.3 7 Performed at [address] [place] [address] Performed By: #### U ACUL #### [address] [place] [address] Erythrocyte distribution width (RBC) [Ratio] 13.2 % Normal 11.7-15.0 [facility] Comment on above: Performed By: #### U ACUL #### [facility] [address] [facility] [address] Hematocrit (Bld) [Volume fraction] 33.4 % Low 36-44 [facility] Comment on above: Performed By: #### U ACUL #### [place] [address] [place] [address] Hemoglobin (Bld) [Mass/Vol] 10.8 g/dL Low 12.0-15.0 [facility] Comment on above: Performed By: #### U ACUL #### [address] [place] [address] MCH (RBC) [Entitic mass] 29.5 pg Normal 26-34 [facility] Comment on above: Performed By: #### U ACUL #### [facility] [place] [address] [place] [address] MCHC (RBC) [Mass/Vol] 32.3 % Normal 31-37 [facility] Comment on above: Performed By: #### U ACUL #### [facility] [place] [address] [place] [address] MCV (RBC) [Entitic vol] 91.3 fL Normal 80-100 [facility] Comment on above: Performed By: #### U ACUL #### [facility] [place] [address] [place] [address] MEAN PLT VOL 13.0 CU High 7.0-12.6 [facility] Comment on above: Performed By: #### U ACUL #### [facility] [place] [address] [place] [address] NRBC'S 0 /100 WBC Normal 0 [facility] Comment on above: Performed By: #### U ACUL #### [facility] [place] [address] [place] [address] Platelets (Bld) [#/Vol] 192 10*3/uL Normal 150-450 [facility] Comment on above: Performed By: #### U ACUL #### [facility] [place] [address] [place] [address] RBC (Bld) [#/Vol] 3.66 M/UL Low 4.0-4.9 [facility] Comment on above: Performed By: #### U ACUL #### [facility] [place] [address] [place] [address] RDW-SD 43.8 FL Normal 37.0-54.0 [facility] Comment on above: Performed By: #### U ACUL #### [facility] [place] [address] [place] [address] WBC (Bld) [#/Vol] 13.4 10*3/uL High 4.5-11.0 [facility] Comment on above: Performed By: #### U ACUL #### [facility] [address] [place] [address] POCT GLUCOSEon 05-11-2018 Glucose [Mass/Vol] 306 mg/dL High [facility] Comment on above: Performed By: #### C BCD #### [facility] [address] [place] [address] Glucose [Mass/Vol] 342 mg/dL High [facility] Comment on above: Performed By: #### C BCD #### [facility] [address] [place] [address] Glucose [Mass/Vol] 330 mg/dL High [facility] Comment on above: Performed By: #### C BCD #### [place] [address] [place] [address] Glucose [Mass/Vol] 274 mg/dL High [facility] Comment on above: Performed By: #### U ACUL #### [place] [address] [place] [address] PTH,INTACT BATTERYon 019 PTH,INTACT 73 PG/ML High [facility] Comment on above: Performed By: #### C BCD #### [place] [address] [place] [address] Calcium [Mass/Vol] 7.9 mg/dL Low 8.5-10.4 [facility] Comment on above: Performed By: #### C BCD #### [facility] [address] [place] [address] Phosphate [Mass/Vol] High 2.5-4.5 [facility] Comment on above: Result Comment: 6.2 Performed at [place] [address] [place] [address] Performed By: #### C BCD #### [place] [address] [place] [address] PTH,INTACT NO RED YELLOW TUBE COLLECTED Normal [facility] Comment on above: Performed By: #### U ACUL #### [place] [address] [place] [address] VANCOMYCIN TROUGHon 05-11-19 19 VANCOMYCIN TROUGH Normal 10-20 [facility] Comment on above: Result Comment: 18 Performed at [place] [address] [place] [address] Performed By: #### C BCD #### [facility] [place] [address] [place] [address] ALBUMIN/CREAT RATIO, URINEon 05-10-2018 ALBUMIN/CREAT RATIO High 0-30 [facility] Comment on above: Result Comment: 2980 .6 30 to 300 mg/g indicates an increased risk for diabetic nephropathy. Greater than 300 mg/g is consistent with clinical nephropathy. (Am J Kidney Disease 1995, 25:107) Performed By: #### C BCD #### [facility] [place] [address] [place] [address] Creatinine (U) [Mass/Vol] [facility] Comment on above: Result Comment: 36.1 Performed at [address] [place] [address] Performed By: #### C BCD #### [facility] [address] [address] MICROALBUMIN High 0-23 [facility] Comment on above: Result Comment: 1076 RECHECKED DILUTED Performed By: #### C BCD #### [place] [address] [place] [address] BLOOD GAS NO CO-OXon 019 %FIO2 [facility] Comment on above: Result Comment: 50 HIGH FLOW 40LPM Performed By: #### U ACUL #### [facility] [place] [address] [place] [address] JACKIE'S TEST Positive [facility] Comment on above: Performed By: #### U ACUL #### [facility] [address] [address] BASE EXCESS [facility] Comment on above: Result Comment: 5.5 NEGATIVE Performed By: #### U ACUL #### [facility] [place] [address] [place] [address] CO2 [Moles/Vol] 21.0 mmol/L Low 23-29 [facility] Comment on above: Performed By: #### U ACUL #### [facility] [address] [address] HCO3 (Bld) [Moles/Vol] 19.8 mmol/L Low 22-28 L [facility] Comment on above: Performed By: #### U ACUL #### [facility] [address] [address] Oxygen (Bld) [Partial pressure] 73 MM HG Low 80-120 [facility] Comment on above: Performed By: #### U ACUL #### [facility] [address] [address] Oxygen saturation in Blood Normal 90-100 [facility] Comment on above: Result Comment: 94.6 Performed at [address] [address] Performed By: #### U ACUL #### [facility] [address] [address] PCO2 37.4 MM HG Normal 35-45 [facility] Comment on above: Performed By: #### U ACUL #### [facility] [address] [address] pH (Bld) 7.332 UNITS Low 7.350-7.450 [facility] Comment on above: Performed By: #### U ACUL #### [facility] [address] [address] SITE DRAWN RIGHT RADIAL [facility] Comment on above: Performed By: #### U ACUL #### [facility] [address] [address] VENTILATOR 0 [facility] Comment on above: Performed By: #### U ACUL #### [facility] [address] [address] LOWER RESP CULTUREon 019 LOWER RESP CULTURE Specimen source XXX: SPUTUM Performed at [address] [address] Service Cmnt XXX-Imp: NONE Performed at [address] [address] Microscopic observation: PURULENT NO ORGANISMS SEEN 2+ WBC Bacteria identified: 1+ NORMAL RESPIRATORY KHOI Performed at [place] [address] [place] [address] : FINAL 05/10/2018 [facility] Comment on above: Performed By: #### L ACV #### [facility] [address] [place] [address] POCT GLUCOSEon 05-10-2018 Glucose [Mass/Vol] 215 mg/dL High 65-99 [facility] Comment on above: Performed By: #### U ACUL #### [facility] [address] [place] [address] Glucose [Mass/Vol] 197 mg/dL High 65-99 [facility] Comment on above: Performed By: #### U ACUL #### [facility] [address] [place] [address] Glucose [Mass/Vol] 136 mg/dL High 65-99 [facility] Comment on above: Performed By: #### U ACUL #### [facility] [address] [place] [address] Glucose [Mass/Vol] 68 mg/dL Normal 65-99 [facility] Comment on above: Performed By: #### U ACUL #### [facility] [address] [place] [address] Glucose [Mass/Vol] 118 mg/dL High 65-99 [facility] Comment on above: Performed By: #### C BCD #### [facility] [address] [place] [address] PTH,INTACT BATTERYon 019 Calcium [Mass/Vol] 7.8 mg/dL Low 8.5-10.4 [facility] Comment on above: Performed By: #### U ACUL #### [facility] [address] [place] [address] Phosphate [Mass/Vol] High 2.5-4.5 [facility] Comment on above: Result Comment: 7.5 Performed at [facility] [address] [place] [address] Performed By: #### U ACUL #### [facility] [address] [place] [address] RENAL FUNCTION PANELon 05-10 Albumin [Mass/Vol] 2.2 g/dL Low 3.5-5.0 [facility] Comment on above: Performed By: #### C BCD #### [facility] [address] [place] [address] Anion gap [Moles/Vol] 15 mmol/L Normal 0-19 [facility] Comment on above: Performed By: #### C BCD #### [facility] [address] [place] [address] Calcium [Mass/Vol] 7.9 mg/dL Low 8.5-10.4 [facility] Comment on above: Performed By: #### C BCD #### [facility] [address] [place] [address] Chloride [Moles/Vol] 104 mmol/L Normal 97-107 [facility] Comment on above: Performed By: #### C BCD #### [facility] [place] [address] [place] [address] CO2 [Moles/Vol] 17 mmol/L Low 24-31 [facility] Comment on above: Performed By: #### C BCD #### [facility] [place] [address] [place] [address] Creatinine [Mass/Vol] 3.1 mg/dL High 0.4-1.6 [facility] Comment on above: Performed By: #### C BCD #### [facility] [address] [place] [address] Glucose [Mass/Vol] 113 mg/dL High 65-99 [facility] Comment on above: Performed By: #### C BCD #### [facility] [place] [address] [place] [address] Phosphate [Mass/Vol] 7.7 mg/dL High 2.5-4.5 [facility] Comment on above: Performed By: #### C BCD #### [facility] [address] [place] [address] Potassium [Moles/Vol] 4.6 mmol/L Normal 3.4-5.1 [facility] Comment on above: Performed By: #### C BCD #### [facility] [address] [address] Sodium [Moles/Vol] 136 mmol/L Normal 133-145 [facility] Comment on above: Performed By: #### C BCD #### [facility] [place] [address] [place] [address] Urea nitrogen [Mass/Vol] 44 mg/dL High 8-25 [facility] Comment on above: Performed By: #### C BCD #### [facility] [address] [address] Urea nitrogen/Creatinine [Mass ratio] Normal 8-21 [facility] Comment on above: Result Comment: 14.2 Performed at [address] [place] [address] Performed By: #### C BCD #### [facility] [address] [address] RENALSon 05-10-2018 RENALS *FINAL Date of Service: 05/10/2018 06:52 Adm #: [id number] Reading Dr:MIGNON HORTA Signoff Dr: MIGNON HORTA PROCEDURE: RENALS - [facility] 2547 REASON FOR EXAM: CARYN RESULT: RENALS: [...] Physician: MIGNON HORTA M.D. Original Transcribed by/Date: [facility] May 10 2018 8:26A Original Electronically Signed by/Date: MIGNON HORTA M.D. May 10 2018 8:26A Addendum Interpreting Physician: Addendum Transcribed by/Date: NO ADDENDUM Addendum Electronically Signed by/Date: Normal [facility] URINE EOSINOPHILSon 05-10-19 19 URINE EOSINOPHILS Normal [facility] Comment on above: Result Comment: NONE SEEN Performed at [facility] [address] [place] [address] Performed By: #### C BCD #### [facility] [address] [place] [address] VANCOMYCIN TROUGHon 05-10-19 19 VANCOMYCIN TROUGH Normal 10-20 [facility] Comment on above: Result Comment: 14 Performed at [facility] [address] [place] [address] Performed By: #### U ACUL #### [facility] [address] [place] [address] ADD ON LAB REQUESTon 019 ADD ON REQUEST Normal [facility] Comment on above: Result Comment: ADD ON OK Performed at [facility] [address] [place] [address] Performed By: #### L ACV #### [facility] [address] [place] [address] ADD ON TESTS PRCL [facility] Comment on above: Performed By: #### L ACV #### [facility] [address] [place] [address] BLOOD CULTUREon 05-09-2018 Bacteria identified Cx Nom (Bld) Specimen source XXX: BLOOD Service Cmnt XXX-Imp: NONE Bacteria identified: NO GROWTH 5 DAYS Performed at [facility],[address] [place] [address] : FINAL 05/09/2018 [facility] Comment on above: Performed By: #### C BCD #### [facility] [address] [place] [address] BLOOD GAS NO CO-OXon 019 %FIO2 [facility] Comment on above: Result Comment: 60 HFNC 40LPM Performed By: #### C BCD #### [facility] [address] [place] [address] JACKIE'S TEST Positive [facility] Comment on above: Performed By: #### C BCD #### [facility] [address] [place] [address] BASE EXCESS [facility] Comment on above: Result Comment: 3.0 NEGATIVE Performed By: #### C BCD #### [facility] [address] [place] [address] CO2 [Moles/Vol] 22.4 mmol/L Low 23-29 [facility] Comment on above: Performed By: #### C BCD #### [facility] [address] [place] [address] HCO3 (Bld) [Moles/Vol] 21.3 mmol/L Low 22-28 [facility] Comment on above: Performed By: #### C BCD #### [facility] [address] [place] [address] Oxygen (Bld) [Partial pressure] 54 MM HG Low 80-120 [facility] Comment on above: Performed By: #### C BCD #### [facility] [address] [place] [address] Oxygen saturation in Blood Normal 90-100 [facility] Comment on above: Result Comment: 90.2 Performed at [place] [address] [address] [place] [address] Performed By: #### C BCD #### [place] [address] [place] [address] PCO2 34.5 MM HG Low 35-45 [facility] Comment on above: Performed By: #### C BCD #### [place] [address] [place] [address] pH (Bld) 7.399 UNITS Normal 7.350-7.450 [facility] Comment on above: Performed By: #### C BCD #### [place] [address] [address] [place] [address] SITE DRAWN RIGHT RADIAL [facility] Comment on above: Performed By: #### C BCD #### [facility] [address] [place] [address] CBC with Diffon 05-09-2018 ABS BAND 0.32 K/UL [facility] Comment on above: Performed By: #### B CUL #### [facility] [address] [place] [address] ABS NEUTROPHILS 14.81 K/UL High 1.8-7.7 [facility] Comment on above: Performed By: #### B CUL #### [facility] [address] [place] [address] ABS.NEUT.MANUAL 15.12 Normal [facility] Comment on above: Performed By: #### B CUL #### [facility] [address] [place] [address] BAND NEUTROPHIL 2.00 % Normal <16 [facility] Comment on above: Performed By: #### B CUL #### [facility] [address] [place] [address] DIFF TYPE MANUAL DIFF Normal [facility] Comment on above: Performed By: #### B CUL #### [facility] [address] [place] [address] Lymphocytes (Bld) [#/Vol] 0.64 10*3/uL Low 1.2-3.2 [facility] Comment on above: Performed By: #### B CUL #### [facility] [address] [place] [address] Lymphocytes/100 WBC (Bld) 4.00 % Low 20-40 [facility] Comment on above: Performed By: #### B CUL #### [facility] [address] [place] [address] Monocytes (Bld) [#/Vol] 0.16 10*3/uL Normal 0-0.8 [facility] Comment on above: Performed By: #### B CUL #### [facility] [address] [place] [address] Monocytes/100 WBC (Bld) 1.00 % Normal 0-8 [facility] Comment on above: Performed By: #### B CUL #### [facility] [address] [place] [address] Neutrophils/100 WBC (Bld) 93.00 % High 50-70 [facility] Comment on above: Performed By: #### B CUL #### [facility] [address] [place] [address] Platelets (Bld) [#/Vol] CONSISTENT WITH REPORTED RESULTS Normal [facility] Comment on above: Performed By: #### B CUL #### [facility] [address] [place] [address] RBC morphology finding Nom (Bld) CONSISTENT WITH REPORTED RESULTS Normal [facility] Comment on above: Performed By: #### B CUL #### [facility] [address] [place] [address] ABS.NEUT.CALCULATED Normal [facility] Comment on above: Result Comment: 14.5 1 Performed at [facility] [address] [place] [address] Performed By: #### B CUL #### [facility] [address] [place] [address] Erythrocyte distribution width (RBC) [Ratio] 13.3 % Normal 11.7-15.0 [facility] Comment on above: Performed By: #### B CUL #### [facility] [address] [place] [address] Hematocrit (Bld) [Volume fraction] 36.4 % Normal 36-44 [facility] Comment on above: Performed By: #### B CUL #### [facility] [address] [place] [address] Hemoglobin (Bld) [Mass/Vol] 11.1 g/dL Low 12.0-15.0 [facility] Comment on above: Performed By: #### B CUL #### [facility] [address] [place] [address] MCH (RBC) [Entitic mass] 29.1 pg Normal 26-34 [facility] Comment on above: Performed By: #### B CUL #### [facility] [address] [place] [address] MCHC (RBC) [Mass/Vol] 30.5 % Low 31-37 [facility] Comment on above: Performed By: #### B CUL #### [facility] [address] [place] [address] MCV (RBC) [Entitic vol] 95.5 fL Normal 80-100 [facility] Comment on above: Performed By: #### B CUL #### [facility] [address] [place] [address] MEAN PLT VOL 12.4 CU Normal 7.0-12.6 [facility] Comment on above: Performed By: #### B CUL #### [facility] [address] [place] [address] NRBC'S 0 /100 WBC Normal 0 [facility] Comment on above: Performed By: #### B CUL #### [facility] [address] [place] [address] Platelets (Bld) [#/Vol] 175 10*3/uL Normal 150-450 [facility] Comment on above: Performed By: #### B CUL #### [facility] [address] [place] [address] RBC (Bld) [#/Vol] 3.81 M/UL Low 4.0-4.9 [facility] Comment on above: Performed By: #### B CUL #### [facility] [address] [place] [address] RDW-SD 47.1 FL Normal 37.0-54.0 [facility] Comment on above: Performed By: #### B CUL #### [facility] [address] [place] [address] WBC (Bld) [#/Vol] 15.9 10*3/uL High 4.5-11.0 [facility] Comment on above: Performed By: #### B CUL #### [facility] [address] [place] [address] COMPREHENSIVE METABOLIC PANE Jl 05-09-2018 Albumin [Mass/Vol] 2.0 g/dL Low 3.5-5.0 [facility] Comment on above: Performed By: #### B CUL #### [facility] [address] [place] [address] Albumin/Globulin [Mass ratio] 0.5 {ratio} Low 1.5-3.0 [facility] Comment on above: Performed By: #### B CUL #### [facility] [address] [place] [address] ALP [Catalytic activity/Vol] 67 U/L Normal 35-125 [facility] Comment on above: Performed By: #### B CUL #### [facility] [address] [place] [address] ALT [Catalytic activity/Vol] Normal 5-40 [facility] Comment on above: Result Comment: 14 Performed at [facility] [address] [place] [address] Performed By: #### B CUL #### [facility] [address] [place] [address] Anion gap [Moles/Vol] 15 mmol/L Normal 0-19 [facility] Comment on above: Performed By: #### B CUL #### [facility] [address] [place] [address] AST [Catalytic activity/Vol] 21 U/L Normal 5-40 [facility] Comment on above: Performed By: #### B CUL #### [facility] [address] [place] [address] Bilirubin [Mass/Vol] 0.2 mg/dL Normal 0.1-1.2 [facility] Comment on above: Performed By: #### B CUL #### [facility] [address] [place] [address] Calcium [Mass/Vol] 8.0 mg/dL Low 8.5-10.4 [facility] Comment on above: Performed By: #### B CUL #### [facility] [address] [place] [address] Chloride [Moles/Vol] 104 mmol/L Normal 97-107 [facility] Comment on above: Performed By: #### B CUL #### [facility] [address] [place] [address] CO2 [Moles/Vol] 16 mmol/L Low 24-31 [facility] Comment on above: Performed By: #### B CUL #### [facility] [address] [place] [address] Creatinine [Mass/Vol] 2.6 mg/dL High 0.4-1.6 [facility] Comment on above: Performed By: #### B CUL #### [facility] [address] [place] [address] Globulin (S) [Mass/Vol] 3.7 g/dL Normal 1.9-3.7 [facility] Comment on above: Performed By: #### B CUL #### [facility] [address] [place] [address] Glucose [Mass/Vol] 109 mg/dL High 65-99 [facility] Comment on above: Performed By: #### B CUL #### [facility] [address] [place] [address] Potassium [Moles/Vol] 4.7 mmol/L Normal 3.4-5.1 [facility] Comment on above: Performed By: #### B CUL #### [facility] [address] [place] [address] Protein [Mass/Vol] 5.7 g/dL Low 5.9-7.9 [facility] Comment on above: Performed By: #### B CUL #### [place] [address] [place] [address] Sodium [Moles/Vol] 135 mmol/L Normal 133-145 [facility] Comment on above: Performed By: #### B CUL #### [place] [address] [place] [address] Urea nitrogen [Mass/Vol] 36 mg/dL High 8-25 [facility] Comment on above: Performed By: #### B CUL #### [place] [address] [place] [address] Urea nitrogen/Creatinine [Mass ratio] 13.8 RATIO Normal 8-21 [facility] Comment on above: Performed By: #### B CUL #### [place] [address] [place] [address] LIPID PANELon 05-09-2018 CHOL HDL RATIO Normal [facility] Comment on above: Result Comment: 4.2 According to the [place] [employer], the goal is to maintain the total cholesterol/HDL ratio at 5-to-1 or lower with an optimum ratio of 3.5-to-1. Performed at [place] [address] [place] [address] Performed By: #### B CUL #### [place] [address] [place] [address] Cholesterol [Mass/Vol] 201 mg/dL High 133-200 [facility] Comment on above: Performed By: #### B CUL #### [place] [address] [place] [address] Cholesterol in HDL [Mass/Vol] Low >50 [facility] Comment on above: Result Comment: 48 National Cholesterol Education Program(NCFP)guidelines: <40 mg/dl:Low HDL-cholesterol(major risk factor for CHD) >60 mg/dl:High HDL-cholesterol("negative"risk factor for CHD) HDL-cholesterol is affected by a number of factors,e.g.,smoking, exercise,hormones,sex and age. Performed By: #### B CUL #### [facility] [address] [place] [address] Cholesterol in LDL [Mass/Vol] 126 mg/dL Normal 65-130 [facility] Comment on above: Performed By: #### B CUL #### [place] [address] [place] [address] SERUM CLARITY CLEAR [facility] Comment on above: Performed By: #### B CUL #### [facility] [address] [place] [address] TRIGLYCERIDE G.B. 136 MG/DL Normal 40-150 [facility] Comment on above: Performed By: #### B CUL #### [facility] [address] [place] [address] PT. PREPARATION FASTING [facility] Comment on above: Performed By: #### B CUL #### [place] [address] [place] [address] SERUM COLOR YELLOW [facility] Comment on above: Performed By: #### B CUL #### [place] [address] [place] [address] Lactic Acid Venouson 019 Lactic Acid Venous High 0.9-1.7 [facility] Comment on above: Result Comment: 3.7 VERIPHY Performed at [place] [address] [place] [address] Performed By: #### B CUL #### [place] [address] [place] [address] POCT GLUCOSEon 05-09-2018 Glucose [Mass/Vol] 95 mg/dL Normal 65-99 [facility] Comment on above: Performed By: #### C BCD #### Main Laboratory [facility] [address] [place] [address] Glucose [Mass/Vol] 117 mg/dL High 65-99 [facility] Comment on above: Performed By: #### C BCD #### Main [facility] [address] [place] [address] Glucose [Mass/Vol] 116 mg/dL High 65-99 [facility] Comment on above: Performed By: #### C BCD #### [facility] [address] [place] [address] Glucose [Mass/Vol] 56 mg/dL Low 65-99 [facility] Comment on above: Performed By: #### C BCD #### [facility] [address] [place] [address] Glucose [Mass/Vol] 85 mg/dL Normal 65-99 [facility] Comment on above: Performed By: #### L ACV #### [facility] [address] [facility] [place] [address] Glucose [Mass/Vol] 91 mg/dL Normal 65-99 [facility] Comment on above: Performed By: #### L ACV #### [facility] [address] [place] [address] Glucose [Mass/Vol] 53 mg/dL Low 65-99 [facility] Comment on above: Performed By: #### L ACV #### [facility] [address] [facility] [place] [address] Glucose [Mass/Vol] 66 mg/dL Normal 65-99 [facility] Comment on above: Performed By: #### L ACV #### [facility] [address] [place] [address] Glucose [Mass/Vol] 70 mg/dL Normal 65-99 [facility] Comment on above: Performed By: #### B CUL #### [facility] [address] [place] [address] Glucose [Mass/Vol] 69 mg/dL Normal 65-99 [facility] Comment on above: Performed By: #### B CUL #### [facility] [address] [place] [address] Glucose [Mass/Vol] 70 mg/dL Normal 65-99 [facility] Comment on above: Performed By: #### B CUL #### [facility] [address] [place] [address] Procalcitoninon 05-09-2018 Procalcitonin High <0.09 [facility] Comment on above: Result Comment: [...] in patients with bacterial infection). Performed at [address] [address] Performed By: #### L ACV #### Main Laboratory [address] [address] ADD ON LAB REQUESTon 019 ADD ON REQUEST Normal [facility] Comment on above: Result Comment: ADDE D OK Performed at [address] [address] Performed By: #### B CUL #### [address] [address] ADD ON TESTS PBNP Normal [facility] Comment on above: Performed By: #### B CUL #### [address] [address] BASIC METABOLIC PANELon 02-0 Glucose [Mass/Vol] High 65-99 [facility] Comment on above: Result Comment: 654 RESULT CHECKED VERIPHY Performed By: #### B MP ####[facility] LaboratoryWike [address] [address] Anion gap [Moles/Vol] 18 mmol/L Normal 0-19 [facility] Comment on above: Performed By: #### B MP ####[facility] LaboratoryWike [address] [place] [address] Calcium [Mass/Vol] Low 8.5-10.4 [facility] Comment on above: Result Comment: 8.1 Performed at [facility] [address] [place] [address] Performed By: #### B MP ####Main LaboratoryWike [address] [place] [address] Chloride [Moles/Vol] 100 mmol/L Normal 97-107 [facility] Comment on above: Performed By: #### B MP ####Main LaboratoryWike [address] [place] [address] CO2 [Moles/Vol] 16 mmol/L Low 24-31 [facility] Comment on above: Performed By: #### B MP ####[facility] LaboratoryWiinna Qssa[address] [place] [address] Creatinine [Mass/Vol] 2.5 mg/dL High 0.4-1.6 [facility] Comment on above: Performed By: #### B MP ####[facility] LaboratoryWiinna [place] [address] [place] [address] Potassium [Moles/Vol] 4.6 mmol/L Normal 3.4-5.1 [facility] Comment on above: Performed By: #### B MP ####[facility] LaboratoryWiinna O[address] [place] [address] Sodium [Moles/Vol] 134 mmol/L Normal 133-145 [facility] Comment on above: Performed By: #### B MP ####Main LaboratoryLainna Emju[address] [place] [address] Urea nitrogen [Mass/Vol] 33 mg/dL High 8-25 [facility] Comment on above: Performed By: #### B MP ####Main LaboratoryLake Hnra[address] [place] [address] Urea nitrogen/Creatinine [Mass ratio] 13.2 RATIO Normal 8-21 [facility] Comment on above: Performed By: #### B MP ####Main LaboratoryLake W[address] [place] [address] Glucose [Mass/Vol] High 65-99 [facility] Comment on above: Result Comment: 513 RESULT CHECKED VERIPHY Performed By: #### B MP ####Main LaboratoryLake Ishc[address] [place] [address] Anion gap [Moles/Vol] 16 mmol/L Normal 0-19 [facility] Comment on above: Performed By: #### B MP ####Main LaboratoryLake Ihgk[address] [place] [address] Chloride [Moles/Vol] 100 mmol/L Normal 97-107 [facility] Comment on above: Performed By: #### B MP ####Main LaboratoryLake Recu[address] [place] [address] CO2 [Moles/Vol] 19 mmol/L Low 24-31 [facility] Comment on above: Performed By: #### B MP ####Main LaboratoryLake Ubkm[address] [place] [address] Potassium [Moles/Vol] 4.6 mmol/L Normal 3.4-5.1 [facility] Comment on above: Performed By: #### B MP ####Main LaboratoryLake [address]jx[address] [place] [address] Sodium [Moles/Vol] 135 mmol/L Normal 133-145 [facility] Comment on above: Performed By: #### B MP ####Main LaboratoryLake Aliz[address] [place] [address] Calcium [Mass/Vol] 8.5 mg/dL Normal 8.5-10.4 [facility] Comment on above: Performed By: #### B MP ####Main LaboratoryLake Eiqc[address] [place] [address] Creatinine [Mass/Vol] 2.1 mg/dL High 0.4-1.6 [facility] Comment on above: Performed By: #### B MP ####Main LaboratoryLake Nzmh[address] [place] [address] GFR/1.73 sq M.predicted MDRD (S/P/Bld) [Vol rate/Area] Normal [facility] Comment on above: Result Comment: 26 GFR ml/min/1.73m2 Stage ----- 90 1 60-89 2 30-59 3 15-29 4 <15 5 For -Americans, multiply EGFR result by 1.210 Calculation not validated for patients under 18 years of age. Performed at [address] [address] Performed By: #### B MP ####[address] [address] Urea nitrogen [Mass/Vol] 28 mg/dL High 8- [facility] Comment on above: Performed By: #### B MP ####[address] [address] Urea nitrogen/Creatinine [Mass ratio] 13.3 RATIO Normal 8- [facility] Comment on above: Performed By: #### B MP ####[address] [address] BETA-HYDROXYBUTYRATEon 05-08 BETA HYDRO RESULT Normal 0.1-0.3 [facility] Comment on above: Result Comment: 0.3 Values exceeding 0.27 mmol/L indicate ketosis Performed at [address] [address] Performed By: #### B HB ####[address] [address] BILIRUBIN,TOTALon 05-08-2018 Bilirubin [Mass/Vol] Normal 0.1-1.2 [facility] Comment on above: Result Comment: 0.4 Performed at [address] [address] Performed By: #### T MARCOS ####[address] [address] BLOOD GAS NO CO-OXon 019 %FIO2 Normal [facility] Comment on above: Result Comment: NASA L CANNULA 4L CORRECTED ON 05/08 AT 1544: PREVIOUSLY REPORTED 50 PS5 PEEP5 50% Performed By: #### A BG ####[address] [address] BASE EXCESS Normal [facility] Comment on above: Result Comment: 8.3 NEGATIVE CORRECTED ON 05/08 AT 1544: PREVIOUSLY REPORTED 0.6 NEGATIVE Performed By: #### A BG ####[facility] [place] [address] CO2 [Moles/Vol] Low 23-29 [facility] Comment on above: Result Comment: 18.9 CORRECTED ON 05/08 AT 1544: PREVIOUSLY REPORTED 26.0 Performed By: #### A BG ####[place] [address] [place] [address] CPAP 0 CM.H20 [facility] Comment on above: Performed By: #### A BG ####[place] [address] [place] [address] HCO3 (Bld) [Moles/Vol] Low 22-28 [facility] Comment on above: Result Comment: 17.8 CORRECTED ON 05/08 AT 1544: PREVIOUSLY REPORTED 24.7 Performed By: #### A BG ####[place] [address] [address] Oxygen (Bld) [Partial pressure] Low 80-120 [facility] Comment on above: Result Comment: 78 CORRECTED ON 05/08 AT 1544: PREVIOUSLY REPORTED 106 Performed By: #### A BG ####[place] [address] [place] [address] Oxygen saturation in Blood Normal 90-100 [facility] Comment on above: Result Comment: 95.7 Performed at [facility] [address] [place] [address] CORRECTED ON 05/08 AT 1544: PREVIOUSLY REPORTED 98.4 Performed By: #### A BG ####[place] [address] [place] [address] PCO2 Normal 35-45 [facility] Comment on above: Result Comment: 37.7 CORRECTED ON 05/08 AT 1544: PREVIOUSLY REPORTED 42.4 Performed By: #### A BG ####[facility] Meia[address] [place] [address] PEEP 0 CM.H20 [facility] Comment on above: Performed By: #### A BG ####[place] [address] [address] pH (Bld) Low 7.350-7.450 [facility] Comment on above: Result Comment: 7.28 2 CORRECTED ON 05/08 AT 1544: PREVIOUSLY REPORTED 7.375 Performed By: #### A BG ####[place] [address] [address] Respiratory rate Normal [facility] Comment on above: Result Comment: 0 CORRECTED ON 05/08 AT 1544: PREVIOUSLY REPORTED 23 Performed By: #### A BG ####[place] [address] [address] TIDAL VOLUME [facility] Comment on above: Result Comment: 0 CORRECTED ON 05/08 AT 1544: PREVIOUSLY REPORTED 327 Performed By: #### A BG ####[place] [address] [place] [address] VENTILATOR 0 [facility] Comment on above: Performed By: #### A BG ####[place] [address] [address] JACKIE'S TEST Positive [facility] Comment on above: Performed By: #### A BG ####[place] [address] [place] [address] SITE DRAWN RIGHT RADIAL [facility] Comment on above: Performed By: #### A BG ####[place] [address] [place] [address] CBC with Diffon 05-08-2018 AB IMMATURE NEUT 0.12 K/UL High 0.0-0.1 [facility] Comment on above: Performed By: #### C BCD ####[facility] [place] [address] ABS BASO 0.03 K/UL Normal 0.00-0.22 [facility] Comment on above: Performed By: #### C BCD ####[facility] [place] [address] ABS EOS 0.01 K/UL Normal 0-0.45 [facility] Comment on above: Performed By: #### C BCD ####Main LaboratoryLake Djse[address] [place] [address] ABS NEUTROPHILS 12.62 K/UL High 1.8-7.7 [facility] Comment on above: Performed By: #### C BCD ####[facility] LaboratoryL[facility] Mcey[address] [place] [address] Basophils/100 WBC (Bld) 0.20 % Normal 0-1 [facility] Comment on above: Performed By: #### C BCD ####[facility] LaboratoryLake Bidl[address] [place] [address] DIFF TYPE AUTO DIFF Normal [facility] Comment on above: Performed By: #### C BCD ####[facility] LaboratoryLake Nhnb[address] [place] [address] Eosinophils/100 WBC (Bld) 0.10 % Normal 0-3 [facility] Comment on above: Performed By: #### C BCD ####[facility] LaboratoryLake Yxyr[address] [place] [address] Lymphocytes (Bld) [#/Vol] 0.28 10*3/uL Low 1.2-3.2 [facility] Comment on above: Performed By: #### C BCD ####[facility] LaboratoryLake Mjag[address] [place] [address] Lymphocytes/100 WBC (Bld) 2.10 % Low 20-40 [facility] Comment on above: Performed By: #### C BCD ####[facility] LaboratoryLake Dwzq[address] [place] [address] Monocytes (Bld) [#/Vol] 0.29 10*3/uL Normal 0-0.8 [facility] Comment on above: Performed By: #### C BCD ####[facility] LaboratoryLake Hwxd[address] [place] [address] Monocytes/100 WBC (Bld) 2.20 % Normal 0-8 [facility] Comment on above: Performed By: #### C BCD ####[facility] LaboratoryL[facility] Zqog[address] [place] [address] Neutrophils/100 WBC (Bld) 0.90 % Normal 0.0-1.0 [facility] Comment on above: Performed By: #### C BCD ####[facility] LaboratoryMegan V[place] [address] [place] [address] Neutrophils/100 WBC (Bld) 94.50 % High 50-70 [facility] Comment on above: Performed By: #### C BCD ####[place] [address] [place] [address] Platelets (Bld) [#/Vol] CONSISTENT WITH REPORTED RESULTS Normal [facility] Comment on above: Performed By: #### C BCD ####[place] [address] [place] [address] RBC morphology finding Nom (Bld) CONSISTENT WITH REPORTED RESULTS Normal [facility] Comment on above: Performed By: #### C BCD ####[place] [address] [place] [address] WBC MORPHOLOGY SMEAR REVIEWED AND F OUND CONSISTENT WITH AUTOMATED DIFFERENTIAL Normal [facility] Comment on above: Performed By: #### C BCD ####[place] [address] [place] [address] ABS.NEUT.CALCULATED Normal [facility] Comment on above: Result Comment: 12.6 2 Performed at [facility] [address] [place] [address] Performed By: #### C BCD ####[place] [address] [place] [address] Erythrocyte distribution width (RBC) [Ratio] 13.2 % Normal 11.7-15.0 [facility] Comment on above: Performed By: #### C BCD ####[place] [address] [place] [address] Hematocrit (Bld) [Volume fraction] 35.9 % Low 36-44 [facility] Comment on above: Performed By: #### C BCD ####[place] [address] [place] [address] Hemoglobin (Bld) [Mass/Vol] 11.5 g/dL Low 12.0-15.0 [facility] Comment on above: Performed By: #### C BCD ####[place] [address] [place] [address] MCH (RBC) [Entitic mass] 28.9 pg Normal 26-34 [facility] Comment on above: Performed By: #### C BCD ####[facility] LaboratoryL[facility] PoeDcor[address] [place] [address] MCHC (RBC) [Mass/Vol] 32.0 % Normal 31-37 [facility] Comment on above: Performed By: #### C BCD ####[facility] LaboratoryLake Smdp[address] [place] [address] MCV (RBC) [Entitic vol] 90.2 fL Normal 80-100 [facility] Comment on above: Performed By: #### C BCD ####[facility] LaboratoryLake Ygbd[address] [place] [address] MEAN PLT VOL 12.9 CU High 7.0-12.6 [facility] Comment on above: Performed By: #### C BCD ####[facility] LaboratoryLake Chqt[address] [place] [address] NRBC'S 0 /100 WBC Normal 0 [facility] Comment on above: Performed By: #### C BCD ####[facility] LaboratoryLake Mdrq[address] [place] [address] Platelets (Bld) [#/Vol] 187 10*3/uL Normal 150-450 [facility] Comment on above: Performed By: #### C BCD ####[facility] LaboratoryLake Qltn[address] [place] [address] RBC (Bld) [#/Vol] 3.98 M/UL Low 4.0-4.9 [facility] Comment on above: Performed By: #### C BCD ####[facility] LaboratoryLake Zosk[address] [place] [address] RDW-SD 43.8 FL Normal 37.0-54.0 [facility] Comment on above: Performed By: #### C BCD ####[facility] LaboratoryL[facility] Xyaa[address] [place] [address] WBC (Bld) [#/Vol] 13.4 10*3/uL High 4.5-11.0 [facility] Comment on above: Performed By: #### C BCD ####[facility] [place] [address] AB IMMATURE NEUT 0.18 K/UL High 0.0-0.1 [facility] Comment on above: Performed By: #### C BCD ####[facility] [place] [address] ABS BASO 0.05 K/UL Normal 0.00-0.22 [facility] Comment on above: Performed By: #### C BCD ####[place] [address] [place] [address] ABS EOS 0.19 K/UL Normal 0-0.45 [facility] Comment on above: Performed By: #### C BCD ####[facility] [place] [address] ABS NEUTROPHILS 14.02 K/UL High 1.8-7.7 [facility] Comment on above: Performed By: #### C BCD ####[place] [address] [place] [address] ABS.NEUT.CALCULATED Normal [facility] Comment on above: Result Comment: 14.0 2 Performed at [facility] [address] [place] [address] Performed By: #### C BCD ####[place] [address] [place] [address] Basophils/100 WBC (Bld) 0.30 % Normal 0-1 [facility] Comment on above: Performed By: #### C BCD ####[place] [address] [place] [address] DIFF TYPE AUTO DIFF Normal [facility] Comment on above: Performed By: #### C BCD ####[facility] Nvov[address] [place] [address] Eosinophils/100 WBC (Bld) 1.20 % Normal 0-3 [facility] Comment on above: Performed By: #### C BCD ####[place] [address] [place] [address] Erythrocyte distribution width (RBC) [Ratio] 13.5 % Normal 11.7-15.0 [facility] Comment on above: Performed By: #### C BCD ####[facility] LaboratoryLake Jydg[address] [place] [address] Hematocrit (Bld) [Volume fraction] 40.5 % Normal 36-44 [facility] Comment on above: Performed By: #### C BCD ####[facility] LaboratoryLake Opix[address] [place] [address] Hemoglobin (Bld) [Mass/Vol] 12.9 g/dL Normal 12.0-15.0 [facility] Comment on above: Performed By: #### C BCD ####[facility] LaboratoryLake Tvsc[address] [place] [address] Lymphocytes (Bld) [#/Vol] 0.93 10*3/uL Low 1.2-3.2 [facility] Comment on above: Performed By: #### C BCD ####[facility] LaboratoryLake Hmpz[address] [place] [address] Lymphocytes/100 WBC (Bld) 5.70 % Low 20-40 [facility] Comment on above: Performed By: #### C BCD ####[facility] LaboratoryL[facility] Nili[address] [place] [address] MCH (RBC) [Entitic mass] 28.4 pg Normal 26-34 [facility] Comment on above: Performed By: #### C BCD ####[facility] LaboratoryL[facility] Hibz[address] [place] [address] MCHC (RBC) [Mass/Vol] 31.9 % Normal 31-37 [facility] Comment on above: Performed By: #### C BCD ####[facility] LaboratoryL[facility] Irzz[address]186 [place] [address] MCV (RBC) [Entitic vol] 89.2 fL Normal 80-100 [facility] Comment on above: Performed By: #### C BCD ####Main LaboratoryLake Ddrl[address] [place] [address] MEAN PLT VOL 12.1 CU Normal 7.0-12.6 [facility] Comment on above: Performed By: #### C BCD ####Main LaboratoryLake [address] [place] [address] Monocytes (Bld) [#/Vol] 0.94 10*3/uL High 0-0.8 [facility] Comment on above: Performed By: #### C BCD ####[facility] [place] [address] Monocytes/100 WBC (Bld) 5.80 % Normal 0-8 [facility] Comment on above: Performed By: #### C BCD ####[facility] [address]Qm[address] [place] [address] Neutrophils/100 WBC (Bld) 1.10 % High 0.0-1.0 [facility] Comment on above: Performed By: #### C BCD ####[facility] [place] [address] Neutrophils/100 WBC (Bld) 85.90 % High 50-70 [facility] Comment on above: Performed By: #### C BCD ####[place] [address] [place] [address] NRBC'S 0 /100 WBC Normal 0 [facility] Comment on above: Performed By: #### C BCD ####[facility] [facility] [id number] [place] [address] Platelets (Bld) [#/Vol] 222 10*3/uL Normal 150-450 [facility] Comment on above: Performed By: #### C BCD ####[facility] [address] [place] [address] RBC (Bld) [#/Vol] 4.54 M/UL Normal 4.0-4.9 [facility] Comment on above: Performed By: #### C BCD ####[facility] [place] [address] RDW-SD 43.8 FL Normal 37.0-54.0 [facility] Comment on above: Performed By: #### C BCD ####[facility] [address] [place] [address] WBC (Bld) [#/Vol] 16.3 10*3/uL High 4.5-11.0 [facility] Comment on above: Performed By: #### C BCD ####[address] [address] CHEST PORTABLEon 05-08-2018 CHEST PORTABLE *FINAL Date of Service: 05/08/2018 07:19 Adm #: [id number] Reading Dr:MALACHI DEAN Signoff Dr: MALACHI DEAN [...] Physician: MALACHI DEAN M.D. Original Transcribed by/Date: [facility] May 08 2018 8:02A Original Electronically Signed by/Date: MALACHI DEAN M.D. May 08 2018 8:02A Addendum Interpreting Physician: Addendum Transcribed by/Date: NO ADDENDUM Addendum Electronically Signed by/Date: Normal [facility] CKMB Grant 05-08-2018 CK.MB [Mass/Vol] 3.9 ng/mL Normal 0.0-5.0 [facility] Comment on above: Performed By: #### B CUL #### [address] [address] CKMB % INDEX Normal 0-3.5 [facility] Comment on above: Result Comment: 2.1 Performed at [address] [address] Performed By: #### B CUL #### [address] [address] CK.MB [Mass/Vol] 3.3 ng/mL Normal 0.0-5.0 [facility] Comment on above: Performed By: #### B CUL #### [facility] [address] [place] [address] CKMB % INDEX Normal 0-3.5 [facility] Comment on above: Result Comment: 2.0 Performed at [address] [place] [address] Performed By: #### B CUL #### [place] [address] [place] [address] CREATINE KINASEon 05-08-2018 CK [Catalytic activity/Vol] Normal 24-195 [facility] Comment on above: Result Comment: 185 Performed at [address] [place] [address] Performed By: #### B CUL #### [address] [place] [address] CK [Catalytic activity/Vol] Normal 24-195 [facility] Comment on above: Result Comment: 161 Performed at [address] [place] [address] Performed By: #### B CUL #### [address] [address] HEMOGLOBIN A1con 05-08-2018 HbA1c (Bld) [Mass fraction] High 4.0-6.0 [facility] Comment on above: Result Comment: [...] mg/dl 10% ............................... 240 mg/dl Performed at [address] [place] [address] Performed By: #### B CUL #### [place] [address] [address] [facility] [place] [address] INFLUENZA RAPID, FIAon 05-08 FLU A by [facility] Comment on above: Result Comment: POSI TIVE VERIPHY Performed By: #### R FLUAB ####[address] [place] [address] FLU B by [facility] Comment on above: Result Comment: NEGA TIVE Performed at [address] [place] [address] Performed By: #### R FLUAB ####[address] [place] [address] Lactic Acid Venouson 019 Lactic Acid Venous High 0.9-1.7 [facility] Comment on above: Result Comment: 2.9 VERIPHY Performed at [address] [place] [address] Performed By: #### B CUL #### [place] [address] [place] [address] Lactic Acid Venous High 0.9-1.7 [facility] Comment on above: Result Comment: 4.0 VERIPHY Performed at [address] [place] [address] Performed By: #### B CUL #### [place] [address] [place] [address] Lactic Acid Venous High 0.9-1.7 [facility] Comment on above: Result Comment: 3.3 VERIPHY Performed at [address] [place] [address] Performed By: #### L ACV ####[facility] [address] [place] [address] POCT GLUCOSEon 05-08-2018 Glucose [Mass/Vol] 322 mg/dL High 65-99 [facility] Comment on above: Performed By: #### B CUL #### [place] [address] [address] [place] [address] Glucose [Mass/Vol] 475 mg/dL High 65-99 [facility] Comment on above: Performed By: #### B CUL #### [place] [address] [facility] [place] [address] Glucose [Mass/Vol] High 65-99 [facility] Comment on above: Result Comment: 561 RESULT ABOVE 500 MG/DL,SEND TO LAB FOR REPEAT TESTING Performed By: #### B CUL #### [place] [address] [facility] [place] [address] Glucose [Mass/Vol] High 65-99 [facility] Comment on above: Result Comment: 578 RESULT ABOVE 500 MG/DL,SEND TO LAB FOR REPEAT TESTING Performed By: #### P CGL ####[place] [address] [address] Glucose [Mass/Vol] RESULT ABOVE 600 MG/DL,SEND TO LAB FOR REPEAT TESTING [address] Comment on above: Performed By: #### P CGL ####[place] [address] [place] [address] Glucose [Mass/Vol] High 65-99 [facility] Comment on above: Result Comment: 579 RESULT ABOVE 500 MG/DL,SEND TO LAB FOR REPEAT TESTING Performed By: #### P CGL ####[place] [address] [facility] [place] [address] PRO-BNPon 05-08-2018 Natriuretic peptide B (Bld) [Mass/Vol] High 0-192 [facility] Comment on above: Result Comment: [phone] 5 Reference ranges are based on clinical submission data. These ranges represent the 95th percentile of normal cut-off points. As NT pro-BNP values approach 1000 pg/ml, clinical symptoms are more likely associated with CHF. Performed at [address] [place] [address] Performed By: #### B CUL #### [facility] [address] [place] [address] PT AND PTTon 05-08-2018 ANTICOAGULANT INFORMATION NOT REPO RTED TO LABORATORY [facility] Comment on above: Performed By: #### P PB ####[facility] [address] [address] aPTT Coag (Bld) [Time] Normal 22.0-32.5 [facility] Comment on above: Result Comment: 25.9 Performed at [place] [address] [place] [address] Performed By: #### P PB ####[place] [address] [place] [address] INR Coag (PPP) [Relative time] Normal 0.86-1.16 [facility] Comment on above: Result Comment: 1.0 INR Theraputic Range: 2.0-3.5 Performed By: #### P PB ####[place] [address] [place] [address] PT Coag (PPP) [Time] 10.9 s Normal 9.3-12.7 [facility] Comment on above: Performed By: #### P PB ####[place] [address] [place] [address] UA WITH MICROon 05-08-2018 BACT Negative [facility] Comment on above: Performed By: #### B CUL #### [facility] [address] [place] [address] MICROSCOPIC AUTOMATIC MICROSCOPI C URINES [facility] Comment on above: Performed By: #### B CUL #### [facility] [address] [place] [address] RBC 554 /HPF High 0-3 [facility] Comment on above: Performed By: #### B CUL #### [facility] [address] [place] [address] URINE HYALINE CAST 6 /LPF [facility] Comment on above: Performed By: #### B CUL #### [facility] [address] [place] [address] URINE SQUAMOUS EPI FEW Normal [facility] Comment on above: Performed By: #### B CUL #### [facility] [address] [place] [address] WBC 4 /HPF High 0-3 [facility] Comment on above: Performed By: #### B CUL #### [facility] [address] [place] [address] BILI Negative Normal NEG [facility] Comment on above: Performed By: #### B CUL #### [facility] [address] [place] [address] BLOOD Abnormal NEG [facility] Comment on above: Result Comment: LARG E Performed at [facility] [address] [place] [address] Performed By: #### B CUL #### [facility] [address] [place] [address] Clarity (U) CLEAR Normal [facility] Comment on above: Performed By: #### B CUL #### [facility] [address] [place] [address] Color (U) LAURA Normal [facility] Comment on above: Performed By: #### B CUL #### [facility] [address] [place] [address] GLUC >=1000 Abnormal NEG [facility] Comment on above: Performed By: #### B CUL #### [facility] [address] [place] [address] KET Negative Normal NEG [facility] Comment on above: Performed By: #### B CUL #### [facility] [address] [place] [address] LEUK Negative Normal NEG [facility] Comment on above: Performed By: #### B CUL #### [facility] [address] [place] [address] NIT Negative Normal NEG [facility] Comment on above: Performed By: #### B CUL #### [facility] [address] [place] [address] pH (U) 6.0 [pH] Normal 4.6-8.0 [facility] Comment on above: Performed By: #### B CUL #### [facility] [address] [place] [address] PROT 300 mg/dL Abnormal NEG [facility] Comment on above: Performed By: #### B CUL #### [facility] [address] [place] [address] SP GRAV,URINE 1.017 Normal 1.005-1.030 [facility] Comment on above: Performed By: #### B CUL #### [facility] [address] [place] [address] URO NORMAL Normal 0-1.0 [facility] Comment on above: Performed By: #### B CUL #### [address] [address] [place] [address] BLOOD CULTUREon 05-07-2018 Bacteria identified Cx Nom (Bld) Specimen source XXX: BLOOD Service Cmnt XXX-Imp: NONE Bacteria identified: NO GROWTH 5 DAYS Performed at [place] [address] [place] [address] : FINAL 05/07/2018 [facility] Comment on above: Performed By: #### B CUL #### [address] [address] [place] [address] CBC WITHOUT DIFFon 9 Erythrocyte distribution width (RBC) [Ratio] 13.2 % Normal 11.7-15.0 [facility] Comment on above: Performed By: #### C FLY RAISER LOCKSTITCH #### [place] [address] [place] [address] Hematocrit (Bld) [Volume fraction] 32.7 % Low 36-44 [facility] Comment on above: Performed By: #### C FLY RAISER LOCKSTITCH #### [place] [address] [address] [place] [address] Hemoglobin (Bld) [Mass/Vol] 10.6 g/dL Low 12.0-15.0 [facility] Comment on above: Performed By: #### C FLY RAISER LOCKSTITCH #### [facility] [address] [place] [address] MCH (RBC) [Entitic mass] 28.8 pg Normal 26-34 [facility] Comment on above: Performed By: #### C FLY RAISER LOCKSTITCH #### [facility] [place] [address] [place] [address] MCHC (RBC) [Mass/Vol] 32.4 % Normal 31-37 [facility] Comment on above: Performed By: #### C FLY RAISER LOCKSTITCH #### [facility] [place] [address] [place] [address] MCV (RBC) [Entitic vol] 88.9 fL Normal 80-100 [facility] Comment on above: Performed By: #### C FLY RAISER LOCKSTITCH #### [facility] [place] [address] [place] [address] MEAN PLT VOL 11.7 CU Normal 7.0-12.6 [facility] Comment on above: Performed By: #### C FLY RAISER LOCKSTITCH #### [facility] [place] [address] [place] [address] NRBC'S Normal 0 [facility] Comment on above: Result Comment: 0 Performed at [place] [address] [facility] [address] Performed By: #### C FLY RAISER LOCKSTITCH #### [facility] [place] [address] [place] [address] Platelets (Bld) [#/Vol] 188 10*3/uL Normal 150-450 [facility] Comment on above: Performed By: #### C FLY RAISER LOCKSTITCH #### [facility] [place] [address] [place] [address] RBC (Bld) [#/Vol] 3.68 M/UL Low 4.0-4.9 [facility] Comment on above: Performed By: #### C FLY RAISER LOCKSTITCH #### [facility] [place] [address] [place] [address] RDW-SD 43.1 FL Normal 37.0-54.0 [facility] Comment on above: Performed By: #### C FLY RAISER LOCKSTITCH #### [facility] [place] [address] [place] [address] WBC (Bld) [#/Vol] 5.7 10*3/uL Normal 4.5-11.0 [facility] Comment on above: Performed By: #### C FLY RAISER LOCKSTITCH #### [facility] [place] [address] [place] [address] COMPREHENSIVE METABOLIC PANE Jl 05-07-2018 Bilirubin [Mass/Vol] Normal 0.1-1.2 [facility] Comment on above: Result Comment: 0.2 LESS THAN Performed By: #### C FLY RAISER LOCKSTITCH ####[place] [address] [place] [address] Albumin [Mass/Vol] 2.3 g/dL Low 3.5-5.0 [facility] Comment on above: Performed By: #### C FLY RAISER LOCKSTITCH ####[facility] [address] [place] [address] Albumin/Globulin [Mass ratio] 0.9 {ratio} Low 1.5-3.0 [facility] Comment on above: Performed By: #### C FLY RAISER LOCKSTITCH ####[facility] [address] [place] [address] ALP [Catalytic activity/Vol] 80 U/L Normal 35-125 [facility] Comment on above: Performed By: #### C FLY RAISER LOCKSTITCH ####[facility] [address] [place] [address] ALT [Catalytic activity/Vol] Normal 5-40 [facility] Comment on above: Result Comment: 12 Performed at [facility] [address] [place] [address] Performed By: #### C FLY RAISER LOCKSTITCH ####[facility] [address] [place] [address] Anion gap [Moles/Vol] 10 mmol/L Normal 0-19 [facility] Comment on above: Performed By: #### C FLY RAISER LOCKSTITCH ####[facility] [address] [place] [address] AST [Catalytic activity/Vol] 18 U/L Normal 5-40 [facility] Comment on above: Performed By: #### C FLY RAISER LOCKSTITCH ####[facility] [address] [place] [address] Calcium [Mass/Vol] 8.1 mg/dL Low 8.5-10.4 [facility] Comment on above: Performed By: #### C FLY RAISER LOCKSTITCH ####[facility] [address] [place] [address] Chloride [Moles/Vol] 109 mmol/L High 97-107 [facility] Comment on above: Performed By: #### C FLY RAISER LOCKSTITCH ####[facility] [address] [place] [address] CO2 [Moles/Vol] 24 mmol/L Normal 24-31 [facility] Comment on above: Performed By: #### C FLY RAISER LOCKSTITCH ####[facility] [address] [place] [address] Creatinine [Mass/Vol] 2.3 mg/dL High 0.4-1.6 [facility] Comment on above: Performed By: #### C FLY RAISER LOCKSTITCH ####[facility] [address] [place] [address] Globulin (S) [Mass/Vol] 2.7 g/dL Normal 1.9-3.7 [facility] Comment on above: Performed By: #### C FLY RAISER LOCKSTITCH ####[facility] [address] [place] [address] Glucose [Mass/Vol] 138 mg/dL High 65-99 [facility] Comment on above: Performed By: #### C FLY RAISER LOCKSTITCH ####[facility] [address]sl[address] [place] [address] Potassium [Moles/Vol] 3.8 mmol/L Normal 3.4-5.1 [facility] Comment on above: Performed By: #### C FLY RAISER LOCKSTITCH ####[facility] [address] [place] [address] Protein [Mass/Vol] 5.0 g/dL Low 5.9-7.9 [facility] Comment on above: Performed By: #### C FLY RAISER LOCKSTITCH ####[facility] [address] [place] [address] Sodium [Moles/Vol] 143 mmol/L Normal 133-145 [facility] Comment on above: Performed By: #### C FLY RAISER LOCKSTITCH ####[facility] [address] [place] [address] Urea nitrogen [Mass/Vol] 30 mg/dL High 8-25 [facility] Comment on above: Performed By: #### C FLY RAISER LOCKSTITCH ####[facility] [address] [place] [address] Urea nitrogen/Creatinine [Mass ratio] 13.0 RATIO Normal 8-21 [facility] Comment on above: Performed By: #### C FLY RAISER LOCKSTITCH ####[facility] [address] [place] [address] POCT GLUCOSEon 05-07-2018 Glucose [Mass/Vol] 76 mg/dL Normal 65-99 [facility] Comment on above: Performed By: #### P CGL ####[place] [address] [place] [address] Glucose [Mass/Vol] 63 mg/dL Low 65-99 [facility] Comment on above: Performed By: #### P CGL ####[place] [address] [place] [address] Glucose [Mass/Vol] 106 mg/dL High 65-99 [facility] Comment on above: Performed By: #### P CGL ####[place] [address] [address] Glucose [Mass/Vol] 112 mg/dL High 65-99 [facility] Comment on above: Performed By: #### P CGL ####[place] [address] [place] [address] Glucose [Mass/Vol] 137 mg/dL High 65-99 [facility] Comment on above: Performed By: #### P CGL ####[place] [address] [address] Glucose [Mass/Vol] 129 mg/dL High 65-99 [facility] Comment on above: Performed By: #### C FLY RAISER LOCKSTITCH #### [place] [address] [place] [address] POCT GLUCOSEon 05-06-2018 Glucose [Mass/Vol] 186 mg/dL High 65-99 [facility] Comment on above: Performed By: #### C FLY RAISER LOCKSTITCH #### [facility] [address] [place] [address] Glucose [Mass/Vol] 162 mg/dL High 65-99 [facility] Comment on above: Performed By: #### C FLY RAISER LOCKSTITCH #### [place] [address] [place] [address] Glucose [Mass/Vol] 105 mg/dL High 65-99 [facility] Comment on above: Performed By: #### C FLY RAISER LOCKSTITCH #### [place] [address] [place] [address] Glucose [Mass/Vol] 63 mg/dL Low 65-99 [facility] Comment on above: Performed By: #### C FLY RAISER LOCKSTITCH #### [facility] [address] [place] [address] Glucose [Mass/Vol] 62 mg/dL Low 65-99 [facility] Comment on above: Performed By: #### C FLY RAISER LOCKSTITCH #### [place] [address] [place] [address] Glucose [Mass/Vol] 60 mg/dL Low 65-99 [facility] Comment on above: Performed By: #### C FLY RAISER LOCKSTITCH #### [place] [address] [place] [address] Glucose [Mass/Vol] 179 mg/dL High 65-99 [facility] Comment on above: Performed By: #### C FLY RAISER LOCKSTITCH #### [place] [address] [place] [address] CBC WITHOUT DIFFon Erythrocyte distribution width (RBC) [Ratio] 13.0 % Normal 11.7-15.0 [facility] Comment on above: Performed By: #### C BCD #### [place] [address] [place] [address] Hematocrit (Bld) [Volume fraction] 32.7 % Low 36-44 [facility] Comment on above: Performed By: #### C BCD #### [place] [address] [place] [address] Hemoglobin (Bld) [Mass/Vol] 10.6 g/dL Low 12.0-15.0 [facility] Comment on above: Performed By: #### C BCD #### [place] [address] [place] [address] MCH (RBC) [Entitic mass] 28.2 pg Normal 26-34 [facility] Comment on above: Performed By: #### C BCD #### [place] [address] [place] [address] MCHC (RBC) [Mass/Vol] 32.4 % Normal 31-37 [facility] Comment on above: Performed By: #### C BCD #### [facility] [place] [address] [place] [address] MCV (RBC) [Entitic vol] 87.0 fL Normal 80-100 [facility] Comment on above: Performed By: #### C BCD #### [place] [address] [place] [address] MEAN PLT VOL 11.9 CU Normal 7.0-12.6 [facility] Comment on above: Performed By: #### C BCD #### [place] [address] [place] [address] NRBC'S Normal 0 [facility] Comment on above: Result Comment: 0 Performed at [place] [address] [place] [address] Performed By: #### C BCD #### [place] [address] [place] [address] Platelets (Bld) [#/Vol] 191 10*3/uL Normal 150-450 [facility] Comment on above: Performed By: #### C BCD #### [place] [address] [place] [address] RBC (Bld) [#/Vol] 3.76 M/UL Low 4.0-4.9 [facility] Comment on above: Performed By: #### C BCD #### [place] [address] [place] [address] RDW-SD 41.1 FL Normal 37.0-54.0 [facility] Comment on above: Performed By: #### C BCD #### [place] [address] [place] [address] WBC (Bld) [#/Vol] 6.8 10*3/uL Normal 4.5-11.0 [facility] Comment on above: Performed By: #### C BCD #### [place] [address] [place] [address] COMPREHENSIVE METABOLIC PANE Jl 05-05-2018 Glucose [Mass/Vol] High 65-99 [facility] Comment on above: Result Comment: 538 RESULT CHECKED VERIPHY Performed By: #### C BCD #### [place] [address] [place] [address] Albumin [Mass/Vol] 2.2 g/dL Low 3.5-5.0 [facility] Comment on above: Performed By: #### C BCD #### [facility] [place] [address] [place] [address] Albumin/Globulin [Mass ratio] 0.7 {ratio} Low 1.5-3.0 [facility] Comment on above: Performed By: #### C BCD #### [facility] [place] [address] [place] [address] ALP [Catalytic activity/Vol] 86 U/L Normal 35-125 [facility] Comment on above: Performed By: #### C BCD #### [facility] [place] [address] [place] [address] ALT [Catalytic activity/Vol] Normal 5-40 [facility] Comment on above: Result Comment: 10 Performed at [place] [address] [place] [address] Performed By: #### C BCD #### [facility] [place] [address] [place] [address] Anion gap [Moles/Vol] 13 mmol/L Normal 0-19 [facility] Comment on above: Performed By: #### C BCD #### [facility] [place] [address] [place] [address] AST [Catalytic activity/Vol] 12 U/L Normal 5-40 [facility] Comment on above: Performed By: #### C BCD #### [facility] [place] [address] [place] [address] Bilirubin [Mass/Vol] 0.3 mg/dL Normal 0.1-1.2 [facility] Comment on above: Performed By: #### C BCD #### [facility] [place] [address] [place] [address] Calcium [Mass/Vol] 8.0 mg/dL Low 8.5-10.4 [facility] Comment on above: Performed By: #### C BCD #### [facility] [place] [address] [place] [address] Chloride [Moles/Vol] 103 mmol/L Normal 97-107 [facility] Comment on above: Performed By: #### C BCD #### [facility] [address] [place] [place] [address] CO2 [Moles/Vol] 21 mmol/L Low 24-31 [facility] Comment on above: Performed By: #### C BCD #### [facility] [address] [place] [place] [address] Creatinine [Mass/Vol] 1.9 mg/dL High 0.4-1.6 [facility] [facility] Comment on above: Performed By: #### C BCD #### [facility] [address] [place] [address] Globulin (S) [Mass/Vol] 3.0 g/dL Normal 1.9-3.7 [facility] Comment on above: Performed By: #### C BCD #### [facility] [place] [address] [place] [address] Potassium [Moles/Vol] 4.1 mmol/L Normal 3.4-5.1 [facility] Comment on above: Performed By: #### C BCD #### [facility] [address] [place] [address] Protein [Mass/Vol] 5.2 g/dL Low 5.9-7.9 [facility] Comment on above: Performed By: #### C BCD #### [facility] [address] [place] [address] Sodium [Moles/Vol] 137 mmol/L Normal 133-145 [facility] Comment on above: Performed By: #### C BCD #### [facility] [address] [place] [address] Urea nitrogen [Mass/Vol] 28 mg/dL High 8-25 [facility] Comment on above: Performed By: #### C BCD #### [facility] [address] [place] [address] Urea nitrogen/Creatinine [Mass ratio] 14.7 RATIO Normal 8-21 [facility] Comment on above: Performed By: #### C BCD #### [address] [address] HEMOGLOBIN A1con 05-05-2018 HbA1c (Bld) [Mass fraction] High 4.0-6.0 [facility] Comment on above: Result Comment: [...] mg/dl 10% ............................... 240 mg/dl Performed at [address] [address] Performed By: #### C BCD #### [address] [address] Lactic Acid Venouson 019 Lactic Acid Venous High 0.9-1.7 [facility] Comment on above: Result Comment: 2.2 VERIPHY Performed at [address] [address] Performed By: #### C BCD #### [address] [place] [address] POCT GLUCOSEon 05-05-2018 Glucose [Mass/Vol] 245 mg/dL High 65-99 [facility] Comment on above: Performed By: #### C FLY RAISER LOCKSTITCH #### [address] [address] Glucose [Mass/Vol] 428 mg/dL High 65-99 [facility] Comment on above: Performed By: #### C BCD #### [address] [address] Glucose [Mass/Vol] 415 mg/dL High 65-99 [facility] Comment on above: Performed By: #### C BCD #### [address] [address] CBC with Diffon 05-04-2018 AB IMMATURE NEUT 0.08 K/UL Normal 0.0-0.1 [facility] Comment on above: Performed By: #### C BCD #### [address] [address] ABS BASO 0.02 K/UL Normal 0.00-0.22 [facility] Comment on above: Performed By: #### C BCD #### [address] [address] ABS EOS 0.02 K/UL Normal 0-0.45 [facility] Comment on above: Performed By: #### C BCD #### [address] [address] ABS NEUTROPHILS 9.90 K/UL High 1.8-7.7 [facility] Comment on above: Performed By: #### C BCD #### [address] [address] ABS.NEUT.CALCULATED Normal [facility] Comment on above: Result Comment: 9.90 Performed at [address] [address] Performed By: #### C BCD #### [address] [address] Basophils/100 WBC (Bld) 0.20 % Normal 0-1 [facility] Comment on above: Performed By: #### C BCD #### [facility] [address] [place] [address] DIFF TYPE AUTO DIFF Normal [facility] Comment on above: Performed By: #### C BCD #### [place] [address] [address] [place] [address] Eosinophils/100 WBC (Bld) 0.20 % Normal 0-3 [facility] Comment on above: Performed By: #### C BCD #### [place] [address] [place] [address] Erythrocyte distribution width (RBC) [Ratio] 12.9 % Normal 11.7-15.0 [facility] Comment on above: Performed By: #### C BCD #### [place] [address] [place] [address] Hematocrit (Bld) [Volume fraction] 39.4 % Normal 36-44 [facility] Comment on above: Performed By: #### C BCD #### [place] [address] [place] [address] Hemoglobin (Bld) [Mass/Vol] 13.2 g/dL Normal 12.0-15.0 [facility] Comment on above: Performed By: #### C BCD #### [place] [address] [place] [address] Lymphocytes (Bld) [#/Vol] 1.51 10*3/uL Normal 1.2-3.2 [facility] Comment on above: Performed By: #### C BCD #### [place] [address] [place] [address] Lymphocytes/100 WBC (Bld) 12.20 % Low 20-40 [facility] Comment on above: Performed By: #### C BCD #### [place] [address] [place] [address] MCH (RBC) [Entitic mass] 28.7 pg Normal 26-34 [facility] Comment on above: Performed By: #### C BCD #### [place] [address] [place] [address] MCHC (RBC) [Mass/Vol] 33.5 % Normal 31-37 [facility] Comment on above: Performed By: #### C BCD #### [facility] [address] [place] [address] MCV (RBC) [Entitic vol] 85.7 fL Normal 80-100 [facility] Comment on above: Performed By: #### C BCD #### [facility] [address] [place] [address] MEAN PLT VOL 11.8 CU Normal 7.0-12.6 [facility] Comment on above: Performed By: #### C BCD #### [place] [address] [place] [address] Monocytes (Bld) [#/Vol] 0.82 10*3/uL High 0-0.8 [facility] Comment on above: Performed By: #### C BCD #### [place] [address] [place] [address] Monocytes/100 WBC (Bld) 6.60 % Normal 0-8 [facility] Comment on above: Performed By: #### C BCD #### [place] [address] [place] [address] Neutrophils/100 WBC (Bld) 0.60 % Normal 0.0-1.0 [facility] Comment on above: Performed By: #### C BCD #### [facility] [address] [place] [address] Neutrophils/100 WBC (Bld) 80.20 % High 50-70 [facility] Comment on above: Performed By: #### C BCD #### [facility] [address] [place] [address] NRBC'S 0 /100 WBC Normal 0 [facility] Comment on above: Performed By: #### C BCD #### [facility] [place] [address] [place] [address] Platelets (Bld) [#/Vol] 243 10*3/uL Normal 150-450 [facility] Comment on above: Performed By: #### C BCD #### [facility] [place] [address] [place] [address] RBC (Bld) [#/Vol] 4.60 M/UL Normal 4.0-4.9 [facility] Comment on above: Performed By: #### C BCD #### [facility] [place] [address] [place] [address] RDW-SD 40.0 FL Normal 37.0-54.0 [facility] Comment on above: Performed By: #### C BCD #### [facility] [place] [address] [place] [address] WBC (Bld) [#/Vol] 12.4 10*3/uL High 4.5-11.0 [facility] Comment on above: Performed By: #### C BCD #### [place] [address] [place] [address] COMPREHENSIVE METABOLIC PANE Jl 05-04-2018 Glucose [Mass/Vol] High 65-99 [facility] Comment on above: Result Comment: 591 RESULT CHECKED VERIPHY Performed By: #### C BCD #### [place] [address] [place] [address] Albumin [Mass/Vol] 2.9 g/dL Low 3.5-5.0 [facility] Comment on above: Performed By: #### C RALPHD #### [place] [address] [place] [address] Albumin/Globulin [Mass ratio] 0.8 {ratio} Low 1.5-3.0 [facility] Comment on above: Performed By: #### C BCD #### [facility] [place] [address] [place] [address] ALP [Catalytic activity/Vol] 113 U/L Normal 35-125 [facility] Comment on above: Performed By: #### C BCD #### [facility] [place] [address] [place] [address] ALT [Catalytic activity/Vol] 13 U/L Normal 5-40 [facility] Comment on above: Performed By: #### C BCD #### [facility] [place] [address] [place] [address] Anion gap [Moles/Vol] 16 mmol/L Normal 0-19 [facility] Comment on above: Performed By: #### C BCD #### [facility] [address] [place] [address] AST [Catalytic activity/Vol] 16 U/L Normal 5-40 [facility] Comment on above: Performed By: #### C BCD #### [facility] [address] [place] [address] Bilirubin [Mass/Vol] 0.3 mg/dL Normal 0.1-1.2 [facility] Comment on above: Performed By: #### C BCD #### [facility] [address] [place] [address] Calcium [Mass/Vol] 8.8 mg/dL Normal 8.5-10.4 [facility] Comment on above: Performed By: #### C BCD #### [facility] [place] [address] [place] [address] Chloride [Moles/Vol] 97 mmol/L Normal 97-107 [facility] Comment on above: Performed By: #### C BCD #### [facility] [place] [address] [place] [address] CO2 [Moles/Vol] 23 mmol/L Low 24-31 [facility] Comment on above: Performed By: #### C BCD #### [facility] [place] [address] [place] [address] Creatinine [Mass/Vol] 1.7 mg/dL High 0.4-1.6 [facility] Comment on above: Performed By: #### C BCD #### [facility] [place] [address] [place] [address] GFR/1.73 sq M.predicted MDRD (S/P/Bld) [Vol rate/Area] Normal [facility] Comment on above: Result Comment: 34 GFR ml/min/1.73m2 Stage ----- 90 1 60-89 2 30-59 3 15-29 4 <15 5 For -Americans, multiply EGFR result by 1.210 Calculation not validated for patients under 18 years of age. Performed at [address] [place] [address] Performed By: #### C BCD #### [facility] [address] [address] Globulin (S) [Mass/Vol] 3.5 g/dL Normal 1.9-3.7 [facility] Comment on above: Performed By: #### C BCD #### [facility] [address] [address] Potassium [Moles/Vol] 4.0 mmol/L Normal 3.4-5.1 [facility] Comment on above: Performed By: #### C BCD #### [facility] [address] [address] Protein [Mass/Vol] 6.4 g/dL Normal 5.9-7.9 [facility] Comment on above: Performed By: #### C BCD #### [facility] [address] [address] Sodium [Moles/Vol] 136 mmol/L Normal 133-145 [facility] Comment on above: Performed By: #### C BCD #### [facility] [address] [address] Urea nitrogen [Mass/Vol] 30 mg/dL High 8-25 [facility] Comment on above: Performed By: #### C BCD #### [facility] [address] [address] Urea nitrogen/Creatinine [Mass ratio] 17.6 RATIO Normal 8-21 [facility] Comment on above: Performed By: #### C BCD #### [facility] [address] [address] LIPASE PSon 05-04-2018 LIPASE PS Normal 16-63 [facility] Comment on above: Result Comment: 30 Performed at [address] [place] [address] Performed By: #### C BCD #### [facility] [address] [address] Lactic Acid Venouson 019 Lactic Acid Venous High 0.9-1.7 [facility] Comment on above: Result Comment: 4.1 VERIPHY Performed at [place] [address] [place] [address] Performed By: #### L ACV #### [facility] [place] [address] [facility] [place] [address] UA-REFLEX TO CULTUREon 05-04 BACT Negative [facility] Comment on above: Performed By: #### U ACUL #### [facility] [place] [address] [facility] [place] [address] MICROSCOPIC AUTOMATIC MICROSCOPI C URINES [facility] Comment on above: Performed By: #### U ACUL #### [facility] [place] [address] [place] [address] RBC 11 /HPF High 0-3 [facility] Comment on above: Performed By: #### U ACUL #### [facility] [place] [address] [facility] [place] [address] URINE HYALINE CAST 6 /LPF Normal [facility] Comment on above: Performed By: #### U ACUL #### [facility] [place] [address] [facility] [place] [address] URINE SQUAMOUS EPI FEW Normal [facility] Comment on above: Performed By: #### U ACUL #### [facility] [place] [address] [facility] [place] [address] WBC 2 /HPF Normal 0-3 [facility] Comment on above: Performed By: #### U ACUL #### [facility] [place] [address] [place] [address] Bacteria identified Cx Nom (U) [facility] Comment on above: Result Comment: CULT URE NOT INDICATED Performed at [place] [address] [place] [address] Performed By: #### U ACUL #### [facility] [place] [address] [facility] [place] [address] BILI Negative Normal [facility] Comment on above: Performed By: #### U ACUL #### [facility] [place] [address] [facility] [place] [address] BLOOD SMALL Abnormal NEG [facility] Comment on above: Performed By: #### U ACUL #### [facility] [place] [address] [address] [place] [address] Clarity (U) CLEAR Normal [facility] Comment on above: Performed By: #### U ACUL #### [facility] [address] [place] [address] Color (U) PALE YELLOW [facility] Comment on above: Performed By: #### U ACUL #### [facility] [address] [place] [address] GLUC >=1000 Abnormal NEG [facility] Comment on above: Performed By: #### U ACUL #### [facility] [address] [place] [address] KET Negative Normal NEG [facility] Comment on above: Performed By: #### U ACUL #### [facility] [address] [place] [address] LEUK Negative Normal NEG [facility] Comment on above: Performed By: #### U ACUL #### [place] [address] [address] [place] [address] NIT Negative Normal NEG [facility] Comment on above: Performed By: #### U ACUL #### [place] [address] [place] [address] pH (U) 7.0 [pH] Normal 4.6-8.0 [facility] Comment on above: Performed By: #### U ACUL #### [facility] [address] [place] [address] PROT 600 mg/dL Abnormal NEG [facility] Comment on above: Performed By: #### U ACUL #### [facility] [address] [address] [place] [address] SP GRAV,URINE 1.019 Normal 1.005-1.030 [facility] Comment on above: Performed By: #### U ACUL #### [facility] [place] [address] [place] [address] URO NORMAL Normal 0-1.0 [facility] Comment on above: Performed By: #### U ACUL #### [facility] [place] [address] [place] [address] CBC with Diffon 05-02-2018 AB IMMATURE NEUT 0.03 K/UL Normal 0.0-0.1 [facility] Comment on above: Performed By: #### C BCD #### [facility] [address] [address] [place] [address] ABS BASO 0.03 K/UL Normal 0.00-0.22 [facility] Comment on above: Performed By: #### C BCD #### [facility] [address] [place] [address] ABS EOS 0.35 K/UL Normal 0-0.45 [facility] Comment on above: Performed By: #### C BCD #### [facility] [place] [address] [place] [address] ABS NEUTROPHILS 4.47 K/UL Normal 1.8-7.7 [facility] Comment on above: Performed By: #### C BCD #### [facility] [place] [address] [place] [address] ABS.NEUT.CALCULATED Normal [facility] Comment on above: Result Comment: 4.47 Performed at [place] [address] [place] [address] Performed By: #### C BCD #### [place] [address] [place] [address] Basophils/100 WBC (Bld) 0.40 % Normal 0-1 [facility] Comment on above: Performed By: #### C BCD #### [place] [address] [place] [address] DIFF TYPE AUTO DIFF Normal [facility] Comment on above: Performed By: #### C BCD #### [facility] [place] [address] [place] [address] Eosinophils/100 WBC (Bld) 5.10 % High 0-3 [facility] Comment on above: Performed By: #### C BCD #### [facility] [place] [address] [place] [address] Erythrocyte distribution width (RBC) [Ratio] 13.2 % Normal 11.7-15.0 [facility] Comment on above: Performed By: #### C BCD #### [facility] [place] [address] [place] [address] Hematocrit (Bld) [Volume fraction] 37.2 % Normal 36-44 [facility] Comment on above: Performed By: #### C BCD #### [facility] [place] [address] [place] [address] Hemoglobin (Bld) [Mass/Vol] 12.4 g/dL Normal 12.0-15.0 [facility] Comment on above: Performed By: #### C BCD #### [facility] [place] [address] [place] [address] Lymphocytes (Bld) [#/Vol] 1.35 10*3/uL Normal 1.2-3.2 [facility] Comment on above: Performed By: #### C BCD #### [place] [address] [place] [address] Lymphocytes/100 WBC (Bld) 19.70 % Low 20-40 [facility] Comment on above: Performed By: #### C BCD #### [place] [address] [place] [address] MCH (RBC) [Entitic mass] 29.1 pg Normal 26-34 [facility] Comment on above: Performed By: #### C BCD #### [place] [address] [place] [address] MCHC (RBC) [Mass/Vol] 33.3 % Normal 31-37 [facility] Comment on above: Performed By: #### C BCD #### [place] [address] [place] [address] MCV (RBC) [Entitic vol] 87.3 fL Normal 80-100 [facility] Comment on above: Performed By: #### C BCD #### [facility] [place] [address] [address] [place] [address] MEAN PLT VOL 11.5 CU Normal 7.0-12.6 [facility] Comment on above: Performed By: #### C BCD #### [facility] [place] [address] [place] [address] Monocytes (Bld) [#/Vol] 0.62 10*3/uL Normal 0-0.8 [facility] Comment on above: Performed By: #### C BCD #### [facility] [address] [place] [address] Monocytes/100 WBC (Bld) 9.10 % High 0-8 [facility] Comment on above: Performed By: #### C BCD #### [facility] [address] [place] [address] Neutrophils/100 WBC (Bld) 65.30 % Normal 50-70 [facility] Comment on above: Performed By: #### C BCD #### [facility] [address] [place] [address] Neutrophils/100 WBC (Bld) 0.40 % Normal 0.0-1.0 [facility] Comment on above: Performed By: #### C BCD #### [facility] [place] [address] [place] [address] NRBC'S 0 /100 WBC Normal 0 [facility] Comment on above: Performed By: #### C BCD #### [facility] [place] [address] [place] [address] Platelets (Bld) [#/Vol] 228 10*3/uL Normal 150-450 [facility] Comment on above: Performed By: #### C BCD #### [facility] [place] [address] [place] [address] RBC (Bld) [#/Vol] 4.26 M/UL Normal 4.0-4.9 [facility] Comment on above: Performed By: #### C BCD #### [facility] [place] [address] [place] [address] RDW-SD 41.7 FL Normal 37.0-54.0 [facility] Comment on above: Performed By: #### C BCD #### [facility] [place] [address] [place] [address] WBC (Bld) [#/Vol] 6.9 10*3/uL Normal 4.5-11.0 [facility] Comment on above: Performed By: #### C BCD #### [facility] [place] [address] [place] [address] COMPREHENSIVE METABOLIC PANE Jl 05-02-2018 Albumin [Mass/Vol] 2.5 g/dL Low 3.5-5.0 [facility] Comment on above: Performed By: #### C FLY RAISER LOCKSTITCH #### [facility] [place] [address] [place] [address] Albumin/Globulin [Mass ratio] 0.8 {ratio} Low 1.5-3.0 [facility] Comment on above: Performed By: #### C FLY RAISER LOCKSTITCH #### [facility] [address] [place] [address] ALP [Catalytic activity/Vol] 102 U/L Normal 35-125 [facility] Comment on above: Performed By: #### C FLY RAISER LOCKSTITCH #### [facility] [place] [address] [place] [address] ALT [Catalytic activity/Vol] 12 U/L Normal 5-40 [facility] Comment on above: Performed By: #### C FLY RAISER LOCKSTITCH #### [facility] [place] [address] [place] [address] Anion gap [Moles/Vol] 13 mmol/L Normal 0-19 [facility] Comment on above: Performed By: #### C FLY RAISER LOCKSTITCH #### [facility] [address] [place] [address] AST [Catalytic activity/Vol] 16 U/L Normal 5-40 [facility] Comment on above: Performed By: #### C FLY RAISER LOCKSTITCH #### [facility] [place] [address] [place] [address] Bilirubin [Mass/Vol] Normal 0.1-1.2 [facility] Comment on above: Result Comment: 0.2 LESS THAN Performed By: #### C FLY RAISER LOCKSTITCH #### [facility] [address] [place] [address] Calcium [Mass/Vol] 8.2 mg/dL Low 8.5-10.4 [facility] Comment on above: Performed By: #### C FLY RAISER LOCKSTITCH #### [facility] [place] [address] [place] [address] Chloride [Moles/Vol] 100 mmol/L Normal 97-107 [facility] Comment on above: Performed By: #### C FLY RAISER LOCKSTITCH #### [facility] [place] [address] [place] [address] CO2 [Moles/Vol] 25 mmol/L Normal 24-31 [facility] Comment on above: Performed By: #### C FLY RAISER LOCKSTITCH #### [address] [address] Creatinine [Mass/Vol] 1.8 mg/dL High 0.4-1.6 [facility] Comment on above: Performed By: #### C FLY RAISER LOCKSTITCH #### [address] [address] GFR/1.73 sq M.predicted MDRD (S/P/Bld) [Vol rate/Area] Normal [facility] Comment on above: Result Comment: 31 GFR ml/min/1.73m2 Stage ----- 90 1 60-89 2 30-59 3 15-29 4 <15 5 For -Americans, multiply EGFR result by 1.210 Calculation not validated for patients under 18 years of age. Performed at [address] [address] Performed By: #### C FLY RAISER LOCKSTITCH #### [address] [address] Globulin (S) [Mass/Vol] 3.2 g/dL Normal 1.9-3.7 [facility] Comment on above: Performed By: #### C FLY RAISER LOCKSTITCH #### [address] [address] Glucose [Mass/Vol] 229 mg/dL High 65-99 [facility] Comment on above: Performed By: #### C FLY RAISER LOCKSTITCH #### [address] [address] Potassium [Moles/Vol] 3.9 mmol/L Normal 3.4-5.1 [facility] Comment on above: Performed By: #### C FLY RAISER LOCKSTITCH #### [address] [address] Protein [Mass/Vol] 5.7 g/dL Low 5.9-7.9 [facility] Comment on above: Performed By: #### C FLY RAISER LOCKSTITCH #### Main Laboratory [address] [address] Sodium [Moles/Vol] 138 mmol/L Normal 133-145 [facility] Comment on above: Performed By: #### C FLY RAISER LOCKSTITCH #### [facility] [address] [address] Urea nitrogen [Mass/Vol] 24 mg/dL Normal 8-25 [facility] Comment on above: Performed By: #### C FLY RAISER LOCKSTITCH #### [facility] [address] [address] Urea nitrogen/Creatinine [Mass ratio] 13.3 RATIO Normal 8-21 [facility] Comment on above: Performed By: #### C FLY RAISER LOCKSTITCH #### [address] [address] ELBOW RT MIN 3 VIEWon 2018 ELBOW RT MIN 3 VIEW *FINAL Date of Service: 05/02/2018 17:09 Adm #: [id number] Reading Dr:MIGNON HORTA Signoff Dr: MIGNON HORTA [...] Physician: MIGNON HORTA M.D. Original Transcribed by/Date: [facility] May 02 2018 5:11P Original Electronically Signed by/Date: MIGNON HORTA M.D. May 02 2018 5:11P Addendum Interpreting Physician: Addendum Transcribed by/Date: NO ADDENDUM Addendum Electronically Signed by/Date: Normal [facility] Lactic Acid Venouson 019 Lactic Acid Venous Normal 0.9-1.7 [facility] Comment on above: Result Comment: 1.7 Performed at [address] [address] Performed By: #### L ACV #### [address] [address] SHOULDER RT MIN 2 VIEWon SHOULDER RT MIN 2 VIEW *FINAL Date of Service: 05/02/2018 17:09 Adm #: [id number] Reading Dr:MIGNON HORTA Signoff Dr: MIGNON HORTA [...] Physician: MIGNON HORTA M.D. Original Transcribed by/Date: [facility] May 02 2018 5:11P Original Electronically Signed by/Date: MIGNON HORTA M.D. May 02 2018 5:11P Addendum Interpreting Physician: Addendum Transcribed by/Date: NO ADDENDUM Addendum Electronically Signed by/Date: [facility] Vital Signs Date Time Vital Sign Value Performing Clinician Facility 01-01-2025 09:49-0400 SaO2% (BldA) [Mass fraction] 94.6 % DR TOÑITO COVINGTON MD [facility] 12-21-2024 16:11-0400 Body weight 111.6 kg DENISSE SUTTON 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 [facility] 11-16-2024 16:33-0400 Body weight 110.9 kg DENISSE SUTTON 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 [facility] 11-09-2024 10:08-0400 SaO2% (BldA) [Mass fraction] 89.2 % RADHA HUMPHREYS MD [facility] 11-08-2024 20:31-0400 SaO2% (BldA) [Mass fraction] 93.4 % RADHA HUMPHREYS MD [facility] 10-11-2024 12:15-0400 Body mass index (BMI) [Ratio] 44.6 kg/m2 Denisse Sutton INSPECTOR [employer] Work Phone: [facility] 10-11-2024 12:15-0400 Body temperature 98 [degF] Denisse Sutton INSPECTOR [employer] Work Phone: [facility] 10-11-2024 12:15-0400 Body weight 107.2 kg Denisse Sutton INSPECTOR [employer] Work Phone: [facility] 10-11-2024 12:15-0400 Diastolic blood pressure 82 mm[Hg] Denisse Sutton [employer]PECTOR [employer] Work Phone: [facility] 10-11-2024 12:15-0400 Heart rate 76 /min Denisse Sutton [employer]PECTOR [employer] Work Phone: [facility] 10-11-2024 12:15-0400 Inhaled oxygen flow rate 2 L/min Denisse Sutton [employer]PECTOR [employer] Work Phone: [facility] 10-11-2024 12:15-0400 Respiratory rate 16 /min Denisse Sutton [employer]PECTOR [employer] Work Phone: [facility] 10-11-2024 12:15-0400 SaO2% (BldA) [Mass fraction] 96 % Denisse Sutton [employer]PECTOR [employer] Work Phone: [facility] 10-11-2024 12:15-0400 Systolic blood pressure 119 mm[Hg] Denisse Sutton INSPECTOR [employer] Work Phone: [facility] 10-10-2024 16:02-0400 Body height 154.94 cm Denisse Sutton [employer]PECTOR [employer] Work Phone: [facility] 10-09-2024 13:04-0400 Body temperature 98.7 [degF] Denisse Sutton INSPECTOR [employer] Work Phone: [facility] 10-09-2024 13:04-0400 Diastolic blood pressure 70 mm[Hg] Denisse Sutton INSPECTOR [employer] Work Phone: [facility] 10-09-2024 13:04-0400 Heart rate 78 /min Denisse Sutton INSPECTOR [employer] Work Phone: [facility] 10-09-2024 13:04-0400 Respiratory rate 22 /min Denisse Sutton INSPECTOR [employer] Work Phone: [facility] 10-09-2024 13:04-0400 SaO2% (BldA) [Mass fraction] 95 % Denisse Sutton INSPECTOR [employer] Work Phone: [facility] 10-09-2024 13:04-0400 Systolic blood pressure 160 mm[Hg] Denisse Sutton INSPECTOR [employer] Work Phone: [facility] 10-09-2024 12:00-0400 Inhaled oxygen flow rate 2 L/min Denisse Sutton INSPECTOR [employer] Work Phone: [facility] 10-09-2024 08:24-0400 Body height 154.94 cm Denisse Sutton INSPECTOR [employer] Work Phone: [facility] 10-09-2024 08:24-0400 Body mass index (BMI) [Ratio] 47.3 kg/m2 Denisse Sutton INSPECTOR [employer] Work Phone: [facility] 10-09-2024 08:24-0400 Body weight 113.7 kg Denisse Sutton INSPECTOR [employer] Work Phone: [facility] 08-02-2024 14:41-0400 Body temperature 97.9 [degF] Denisse Sutton INSPECTOR [employer] Work Phone: [facility] 08-02-2024 14:41-0400 Diastolic blood pressure 44 mm[Hg] Denisse Sutton INSPECTOR [employer] Work Phone: [facility] 08-02-2024 14:41-0400 Heart rate 70 /min Denisse Sutton INSPECTOR [employer] Work Phone: [facility] 08-02-2024 14:41-0400 Inhaled oxygen flow rate 2 L/min Denisse Sutton INSPECTOR [employer] Work Phone: [facility] 08-02-2024 14:41-0400 Respiratory rate 18 /min Denisse Sutton INSPECTOR [employer] Work Phone: [facility] 08-02-2024 14:41-0400 SaO2% (BldA) [Mass fraction] 98 % Denisse Clarkcarol INSPECTOR [employer] Work Phone: [facility] 08-02-2024 14:41-0400 Systolic blood pressure 98 mm[Hg] Denisse Lesley INSPECTOR [employer] Work Phone: [facility] 08-02-2024 12:54-0400 Body mass index (BMI) [Ratio] 44.9 kg/m2 Denisse Lesley INSPECTOR [employer] Work Phone: [facility] 08-02-2024 12:54-0400 Body weight 107.7 kg Denisse Sutton INSPECTOR [employer] Work Phone: [facility] 07-31-2024 04:57-0400 Diastolic Blood Pressure Non-Invasive 62 mm[Hg] TORRI SARAHI DO [facility] 07-31-2024 04:57-0400 Heart rate 82 /min TORRI MCCLAIN DO [facility] 07-31-2024 04:57-0400 Respiratory rate 18 /min TORRI MCCLAIN DO [facility] 07-31-2024 04:57-0400 Systolic Blood Pressure Non-Invasive 127 mm[Hg] TORRI SARAHI DO [facility] 07-31-2024 03:08-0400 Blood Pressure Cuff Size TORRI MCCLAIN DO [facility] 07-31-2024 03:08-0400 Blood Pressure Location TORRI SARAHI DO [facility] 07-31-2024 03:08-0400 Blood Pressure Method TORRI SARAHI DO [facility] 07-31-2024 03:08-0400 Body height 155 cm TORRI MCCLAIN DO [facility] 07-31-2024 03:08-0400 Body temperature 98.6 [degF] TORRI MCCLAIN DO [facility] 07-31-2024 03:08-0400 Body weight 109.5 kg TORRI MCCLAIN DO [facility] 07-31-2024 03:08-0400 Diastolic Blood Pressure Non-Invasive 80 mm[Hg] TORRI MCCLAIN DO [facility] 07-31-2024 03:08-0400 Heart rate 86 /min TORRI MCCLAIN DO [facility] 07-31-2024 03:08-0400 Respiratory rate 20 /min TORRI MCCLAIN DO [facility] 07-31-2024 03:08-0400 Systolic Blood Pressure Non-Invasive 186 mm[Hg] TORRI MCCLAIN DO [facility] 07-30-2024 14:04-0400 Body temperature 98.6 [degF] DR REENA LAMAS DO [facility] 07-30-2024 14:04-0400 Diastolic Blood Pressure Non-Invasive 76 mm[Hg] DR REENA LAMAS DO [facility] 07-30-2024 14:04-0400 Heart rate 60 /min DR REENA LAMAS DO [facility] 07-30-2024 14:04-0400 Respiratory rate 18 /min DR REENA LAMAS DO [facility] 07-30-2024 14:04-0400 Systolic Blood Pressure Non-Invasive 132 mm[Hg] DR REENA LAMAS DO [facility] 07-14-2024 16:14-0400 Body weight 108.6 kg DENISSE SUTTON 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 [facility] 11-18-2023 13:35-0400 Diastolic Blood Pressure Non-Invasive 72 mm[Hg] EVELINA CURTIS MD [facility] 11-18-2023 13:35-0400 Heart rate 75 /min EVELINA CURTIS MD [facility] 11-18-2023 13:35-0400 Respiratory rate 20 /min EVELINA CURTIS MD [facility] 11-18-2023 13:35-0400 Systolic Blood Pressure Non-Invasive 152 mm[Hg] EVELINA CURTIS MD [facility] 11-18-2023 10:45-0400 Blood Pressure Cuff Size EVELINA CURTIS MD [facility] 11-18-2023 10:45-0400 Blood Pressure Location EVELINA CURTIS MD [facility] 11-18-2023 10:45-0400 Blood Pressure Method EVELINA CURTIS MD [facility] 11-18-2023 10:45-0400 Diastolic Blood Pressure Non-Invasive 70 mm[Hg] EVELINA CURTIS MD [facility] 11-18-2023 10:45-0400 Systolic Blood Pressure Non-Invasive 155 mm[Hg] EVELINA CURTIS MD [facility] 11-18-2023 10:33-0400 Heart rate 78 /min EVELINA CURTIS MD [facility] 11-18-2023 10:33-0400 Respiratory rate 26 /min EVELINA CURTIS MD [facility] 11-18-2023 10:21-0400 Blood Pressure Cuff Size EVELINA CURTIS MD [facility] 11-18-2023 10:21-0400 Blood Pressure Location EVELINA CURTIS MD [facility] 11-18-2023 10:21-0400 Blood Pressure Method EVELINA CURTIS MD [facility] 11-18-2023 10:21-0400 Body temperature 97.7 [degF] EVELINA CURTIS MD [facility] 11-18-2023 10:21-0400 Diastolic Blood Pressure Non-Invasive 73 mm[Hg] EVELINA CURTIS MD [facility] 11-18-2023 10:21-0400 Heart rate 77 /min EVELINA CURTIS MD [facility] 11-18-2023 10:210400 Respiratory rate 28 /min EVELINA CURTIS MD [facility] 11-18-2023 10:21-0400 Systolic Blood Pressure Non-Invasive 161 mm[Hg] EVELINA CURTIS MD [facility] 10-11-2023 21:17-[address] FREDDIE BURRIS DO [facility] 10-11-2023 21:17-[address] FREDDIE RIDER DO [facility] 10-11-2023 21:17-0400 Body temperature 98.06 [degF] DR FREDDIE BURRIS DO [facility] 10-11-2023 21:17-0400 Diastolic Blood Pressure Non-Invasive 73 mm[Hg] DR FREDDIE BURRIS DO [facility] 10-11-2023 21:17-0400 Heart rate 73 /min DR FREDDIE BURRIS DO [facility] 10-11-2023 21:17-0400 Respiratory rate 18 /min DR FREDDIE BURRIS DO [facility] 10-11-2023 21:17-0400 Systolic Blood Pressure Non-Invasive 158 mm[Hg] DR FREDDIE BURRIS DO [facility] 09-08-2023 10:36-0400 Diastolic blood pressure 71 mm[Hg] Jeremy Aguirre MD, MD Work Phone: [facility] 09-08-2023 10:36-0400 Heart rate 63 /min Jeremy Aguirre MD, MD Work Phone: [facility] 09-08-2023 10:36-0400 Respiratory rate 15 /min Jeremy Aguirre MD, MD Work Phone: [facility] 09-08-2023 10:36-0400 SaO2% (BldA) [Mass fraction] 97 % Jeremy Aguirre MD, MD Work Phone: [facility] 09-08-2023 10:36-0400 Systolic blood pressure 137 mm[Hg] Jeremy Aguirre MD, MD Work Phone: [facility] 07-01-2023 14:57-0400 Body temperature 98.4 [degF] TERESA Sutton NP Work Phone: [facility] 07-01-2023 14:57-0400 Diastolic blood pressure 62 mm[Hg] INSPECTOR [employer] Denisse Sutton INSPECTOR [employer]VAGE Work Phone: [facility] 07-01-2023 14:57-0400 Heart rate 67 /min [employer] Denisse Lorson INSPECTOR [employer]AGE Work Phone: [facility] 07-01-2023 14:57-0400 Respiratory rate 16 /min [employer] Denisse Clarkson INSPECTOR [employer]AGE Work Phone: [facility] 07-01-2023 14:57-0400 SaO2% (BldA) [Mass fraction] 95 % [employer] Denisse Sutton INSPECTOR [employer]AGE Work Phone: [facility] 07-01-2023 14:57-0400 Systolic blood pressure 131 mm[Hg] INS[employer] Denisse Sutton INSPECTOR [employer]AGE Work Phone: [facility] 05-27-2023 14:40-0500 Body temperature 98.2 [degF] INS[employer] Denisse Clarkson INSPECTOR [employer]AGE Work Phone: [facility] 05-27-2023 14:40-0500 Diastolic blood pressure 70 mm[Hg] INS[employer] Denisse Sutton INSPECTOR [employer]AGE Work Phone: [facility] 05-27-2023 14:40-0500 Heart rate 65 /min [employer] Denisse Sutton INSPECTOR [employer]AGE Work Phone: [facility] 05-27-2023 14:40-0500 Respiratory rate 18 /min [employer] Denisse Clarkson INSPECTOR [employer]AGE Work Phone: [facility] 05-27-2023 14:40-0500 SaO2% (BldA) [Mass fraction] 97 % [employer] Denisse Sutton INSPECTOR [employer]AGE Work Phone: [facility] 05-27-2023 14:40-0500 Systolic blood pressure 148 mm[Hg] INS[employer]OR [employer] Denisse Clarkson INSPECTOR SALVAGE Work Phone: [facility] 04-27-2023 14:04-0500 Body temperature 97.8 [degF] INS[employer]OR [employer] Denisse Lorson INSPECTOR SALVAGE Work Phone: [facility] 04-27-2023 14:04-0500 Diastolic blood pressure 72 mm[Hg] INS[employer]OR [employer] Denisse Sutton INSPECTOR [employer]VAGE Work Phone: [facility] 04-27-2023 14:04-0500 Heart rate 61 /min [employer] Denisse Sutton INSPECTOR [employer]AGE Work Phone: [facility] 04-27-2023 14:04-0500 Respiratory rate 16 /min [employer] Denisse Sutton INSPECTOR [employer]VAGE Work Phone: [facility] 04-27-2023 14:04-0500 SaO2% (BldA) [Mass fraction] 95 % [employer] Denisse Sutton INSPECTOR [employer]AGE Work Phone: [facility] 04-27-2023 14:04-0500 Systolic blood pressure 153 mm[Hg] INSPECTOR [employer] Denisse Sutton INSPECTOR [employer]VAGE Work Phone: [facility] 04-27-2023 13:25-0500 Inhaled oxygen flow rate 2 L/min [employer] Denisse Sutton INSPECTOR [employer]VAGE Work Phone: [facility] 04-27-2023 09:24-0500 Body height 157.48 cm INSPECTOR [employer] Denisse Sutton INSPECTOR [employer]AGE Work Phone: [facility] 04-27-2023 09:24-0500 Body mass index (BMI) [Ratio] 41.5 kg/m2 INSPECTOR [employer] Denisse Sutton INSPECTOR SALVAGE Work Phone: [facility] 04-27-2023 09:24-0500 Body weight 103 kg INSPECTOR [employer] Denisse Sutton INSPECTOR [employer]VAGE Work Phone: [facility] 04-15-2023 14:35-0500 Body temperature 98.2 [degF] INSPECTOR [employer] Denisse Sutton INSPECTOR [employer]VAGE Work Phone: [facility] 04-15-2023 14:35-0500 Diastolic blood pressure 67 mm[Hg] INSPECTOR [employer] Denisse Sutton INSPECTOR SALVAGE Work Phone: [facility] 04-15-2023 14:35-0500 Heart rate 67 /min INS[employer]OR [employer] Denisse Sutton INSPECTOR [employer]VAGE Work Phone: [facility] 04-15-2023 14:35-0500 Respiratory rate 18 /min INSPECTOR [employer] Denisse Sutton INSPECTOR [employer]VAGE Work Phone: [facility] 04-15-2023 14:35-0500 SaO2% (BldA) [Mass fraction] 98 % INSPECTOR [employer] Denisse Clarkson INSPECTOR [employer]VAGE Work Phone: [facility] 04-15-2023 14:35-0500 Systolic blood pressure 146 mm[Hg] INSPECTOR [employer] Denisse Sutton INSPECTOR [employer]AGE Work Phone: [facility] 04-07-2023 11:36-0500 Body weight 95.25 kg INSPECTOR [employer] Denisse Sutton INSPECTOR [employer]VAGE Work Phone: [facility] 04-07-2023 09:40-0500 Body mass index (BMI) [Ratio] 42.2 kg/m2 INS[employer] Denisse Sutton INSPECTOR [employer]AGE Work Phone: [facility] 04-07-2023 09:40-0500 Body temperature 98.6 [degF] INSPECTOR [employer] Denisse Sutton INSPECTOR [employer]AGE Work Phone: [facility] 04-07-2023 09:40-0500 Diastolic blood pressure 66 mm[Hg] INSPECTOR [employer] Denisse Sutton INSPECTOR [employer]AGE Work Phone: [facility] 04-07-2023 09:40-0500 Heart rate 64 /min [employer] Denisse Clarkson INSPECTOR [employer]AGE Work Phone: [facility] 04-07-2023 09:40-0500 Respiratory rate 18 /min [employer] Denisse Clarkson INSPECTOR [employer]AGE Work Phone: [facility] 04-07-2023 09:40-0500 SaO2% (BldA) [Mass fraction] 94 % INS[employer] Denisse Clarkson INSPECTOR [employer]AGE Work Phone: [facility] 04-07-2023 09:40-0500 Systolic blood pressure 137 mm[Hg] INS[employer]OR [employer] Denisse Sutton INSPECTOR [employer]AGE Work Phone: [facility] 02-11-2023 11:13-0500 Body temperature 98.6 [degF] INS[employer] Denisse Sutton INSPECTOR [employer]VAGE Work Phone: [facility] 02-11-2023 11:13-0500 Body weight 102.96 kg INSPECTOR [employer] Denisse Sutton INSPECTOR [employer]AGE Work Phone: [facility] 02-11-2023 11:13-0500 Diastolic blood pressure 68 mm[Hg] INS[employer]OR [employer] Denisse Sutton INSPECTOR [employer]AGE Work Phone: [facility] 02-11-2023 11:13-0500 Heart rate 67 /min [employer] Denisse Sutton INSPECTOR [employer]AGE Work Phone: [facility] 02-11-2023 11:13-0500 Respiratory rate 16 /min INS[employer] Denisse Sutton INSPECTOR [employer]AGE Work Phone: [facility] 02-11-2023 11:13-0500 SaO2% (BldA) [Mass fraction] 96 % INS[employer] Denisse Sutton INSPECTOR [employer]AGE Work Phone: [facility] 02-11-2023 11:13-0500 Systolic blood pressure 136 mm[Hg] INS[employer]OR [employer] Denisse Sutton INSPECTOR [employer]AGE Work Phone: [facility] 01-22-2023 09:27-0400 Body height 157.48 cm INSPECTOR [employer] Denisse Sutton INSPECTOR [employer]AGE Work Phone: [facility] 01-22-2023 09:27-0400 Body mass index (BMI) [Ratio] 39.6 kg/m2 [employer] Denisse Sutton INSPECTOR [employer]AGE Work Phone: [facility] 01-22-2023 09:27-0400 Body weight 98.3 kg [employer]PECTOR [employer] Denisse Sutton INSPECTOR [employer]AGE Work Phone: [facility] 12-10-2022 15:23-0400 Body temperature 98.4 [degF] INS[employer] Densise Sutton INSPECTOR [employer]VAGE Work Phone: [facility] 12-10-2022 15:23-0400 Body weight 103.87 kg INSPECTOR [employer] Denisse Sutton INSPECTOR [employer]AGE Work Phone: [facility] 12-10-2022 15:23-0400 Diastolic blood pressure 76 mm[Hg] INS[employer]OR [employer] Denisse Sutton INSPECTOR [employer]AGE Work Phone: [facility] 12-10-2022 15:23-0400 Heart rate 70 /min INS[employer] Denisse Sutton INSPECTOR [employer]AGE Work Phone: [facility] 12-10-2022 15:23-0400 Respiratory rate 16 /min [employer] Denisse Sutton INSPECTOR [employer]AGE Work Phone: [facility] 12-10-2022 15:23-0400 SaO2% (BldA) [Mass fraction] 96 % INS[employer] Denisse Sutton INSPECTOR [employer]AGE Work Phone: [facility] 12-10-2022 15:23-0400 Systolic blood pressure 132 mm[Hg] INS[employer]OR [employer] Denisse Sutton INSPECTOR [employer]AGE Work Phone: [facility] 11-18-2022 11:20-0400 Body temperature 97.7 [degF] LEE CASH MD [facility] 11-18-2022 11:20-0400 Diastolic Blood Pressure Non-Invasive 66 1 LEE CASH MD [facility] 11-18-2022 11:20-0400 Heart rate 60 /min LEE CASH MD [facility] 11-18-2022 11:20-0400 Respiratory rate 16 /min LEE CASH MD [facility] 11-18-2022 11:20-0400 Systolic Blood Pressure Non-Invasive 132 1 LEE CASH MD [facility] 11-18-2022 10:45-0400 Diastolic Blood Pressure Non-Invasive 68 1 LEE CASH MD [facility] 11-18-2022 10:45-0400 Heart rate 60 /min LEE CASH MD [facility] 11-18-2022 10:45-0400 Respiratory rate 18 /min LEE CASH MD [facility] 11-18-2022 10:45-0400 Systolic Blood Pressure Non-Invasive 141 1 LEE CASH MD [facility] 11-18-2022 10:40-0400 Diastolic Blood Pressure Non-Invasive 68 1 LEE CASH MD [facility] 11-18-2022 10:40-0400 Heart rate 61 /min LEE CASH MD [facility] 11-18-2022 10:40-0400 Respiratory rate 17 /min LEE CASH MD [facility] 11-18-2022 10:40-0400 Systolic Blood Pressure Non-Invasive 144 1 LEE CASH MD [facility] 11-18-2022 10:25-0400 Blood Pressure Cuff Size LEE CASH MD [facility] 11-18-2022 10:25-0400 Blood Pressure Location LEE CASH MD [facility] 11-18-2022 10:25-0400 Blood Pressure Method LEE CASH MD [facility] 11-18-2022 08:16-0400 Body height 154.9 cm LEE CASH MD [facility] 11-18-2022 08:16-0400 Body weight 101 kg LEE CASH MD [facility] 11-18-2022 08:07-0400 Body temperature 97.16 [degF] LEE CASH MD [facility] 11-18-2022 08:07-0400 Heart rate 66 /min LEE CASH MD [facility] 11-10-2022 22:31-0400 Body temperature 98.6 [degF] CALDERON PHAN DO [facility] 11-10-2022 22:31-0400 Body weight 102.3 kg CALDERON PHAN DO [facility] 11-10-2022 22:31-0400 Diastolic Blood Pressure Non-Invasive 77 1 CALDERON PHAN DO [facility] 11-10-2022 22:31-0400 Heart rate 70 /min CALDERON PHAN DO [facility] 11-10-2022 22:31-0400 Respiratory rate 16 /min CALDERON PHAN DO [facility] 11-10-2022 22:31-0400 Systolic Blood Pressure Non-Invasive 126 1 CALDERON PHAN DO [facility] 10-24-2022 14:29-04[address] Cuff Size DR TOÑITO COVINGTON MD [facility] 10-24-2022 14:29-[address] TOÑITO COVINGTON MD [facility] 10-24-2022 14:29-[address] TOÑITO COVINGTON MD [facility] 10-24-2022 14:29-0400 Body temperature 97.88 [degF] DR TOÑITO COVINGTON MD [facility] 10-24-2022 14:29-0400 Diastolic Blood Pressure Non-Invasive [address] TOÑITO COVINGTON MD [facility] 10-24-2022 14:29-0400 Heart rate 64 /min DR TOÑITO COVINGTON MD [facility] 10-24-2022 14:29-0400 Reason For Taking VItal Signs DR TOÑITO COVINGTON MD [address] [place] [address] 10-24-2022 14:29-0400 Respiratory rate 18 /min DR TOÑITO COVINGTON MD [address] [place] [address] 10-24-2022 14:29-0400 Systolic Blood Pressure Non-Invasive [address] TOÑITO COVINGTON MD [address] [place] [address] 10-24-2022 09:26-0400 Reason For Taking VItal Signs DR TOÑITO COVINGTON MD [address] [place] [address] 10-24-2022 08:00-0400 Body temperature 96.8 [degF] DR TOÑITO COVINGTON MD [address] [place] [address] 10-24-2022 08:00-0400 Diastolic Blood Pressure Non-Invasive [address] TOÑITO COVINGTON MD [address] [place] [address] 10-24-2022 08:00-0400 Respiratory rate 16 /min DR TOÑITO COVINGTON MD [address] [place] [address] 10-24-2022 08:00-0400 Systolic Blood Pressure Non-Invasive [address] TOÑITO COVINGTON MD [address] [place] [address] 10-24-2022 04:14-0400 Body height 157.[address] TOÑITO COVINGTON MD [address] [place] [address] 10-24-2022 04:14-0400 Body temperature 96.98 [degF] DR TOÑITO COVINGTON MD [address] [place] [address] 10-24-2022 04:14-0400 Body weight 101.[address] TOÑITO COVINGTON MD [address] [place] [address] 10-24-2022 04:14-0400 Body weight 40.92 kg/m2 DR TOÑITO COVINGTON MD [address] [place] [address] 10-24-2022 04:14-0400 Diastolic Blood Pressure Non-Invasive [address] TOÑITO COVINGTON MD [address] [place] [address] 10-24-2022 04:14-0400 Heart rate 64 /min DR TOÑITO COVINGTON MD [facility] 10-24-2022 04:14-0400 Reason For Taking VItal Signs DR TOÑITO COVINGTON MD [facility] 10-24-2022 04:14-0400 Respiratory rate 18 /min DR TOÑITO COVINGTON MD [facility] 10-24-2022 04:14-0400 Systolic Blood Pressure Non-Invasive [address] TOÑITO COVINGTON MD [address] [place] [address] 10-24-2022 03:16-0400 Heart rate 63 /min DR TOÑITO COVINGTON MD [address] [place] [address] 10-24-2022 00:58-0400 Heart rate 60 /min DR TOÑITO COVINGTON MD [address] [place] [address] 10-23-2022 23:18-0400 Heart rate 63 /min DR TOÑITO COVINGTON MD [address] [place] [address] 10-23-2022 14:50-0400 Body temperature 97.7 [degF] DR TOÑITO COVINGTON MD [address] [place] [address] 10-23-2022 14:50-0400 Body weight [address] TOÑITO COVINGTON MD [facility] 08-29-2022 01:50-0400 Diastolic Blood Pressure Non-Invasive [address] FREDDIE BURRIS DO [facility] 08-29-2022 01:50-0400 Heart rate 70 /min DR FREDDIE BURRIS DO [facility] 08-29-2022 01:50-0400 Respiratory rate 18 /min DR FREDDIE BURRIS DO [facility] 08-29-2022 01:50-0400 Systolic Blood Pressure Non-Invasive [address] FREDDIE BURRIS DO [facility] 08-28-2022 23:41-0400 Blood Pressure Cuff Size DR FREDDIE BURRIS DO [facility] 08-28-2022 23:41-[address] FREDDIE BURRIS DO [facility] 08-28-2022 23:41-[address] FREDDIE BURRIS DO [facility] 08-28-2022 23:41-0400 Body height [address] FREDDIE BURRIS DO [facility] 08-28-2022 23:41-0400 Body temperature 98.06 [degF] DR FREDDIE BURRIS DO [facility] 08-28-2022 23:41-0400 Body weight [address] FREDDIE BURRIS DO [facility] 08-28-2022 23:41-0400 Diastolic Blood Pressure Non-Invasive [address] FREDDIE BURRIS DO [facility] 08-28-2022 23:41-0400 Heart rate 74 /min DR FREDDIE BURRIS DO [facility] 08-28-2022 23:41-0400 Reason For Taking VItal Signs DR FREDDIE BURRIS DO [facility] 08-28-2022 23:41-0400 Respiratory rate 20 /min DR FREDDIE BURRIS DO [facility] 08-28-2022 23:41-0400 Systolic Blood Pressure Non-Invasive [address] FREDDIE BURRIS DO [facility] 08-11-2022 15:05-0400 Heart rate 60 /min DR NATE CROW MD [facility] 08-11-2022 15:05-0400 Respiratory rate 16 /min DR NATE CROW MD [address] [place] [address] 08-11-2022 09:58-0400 Blood Pressure Cuff Size DR NATE CROW MD [address] [place] [address] 08-11-2022 09:58-[address] NATE CROW MD [address] [place] [address] 08-11-2022 09:58-[address] NATE CROW MD [address] [place] [address] 08-11-2022 09:58-0400 Diastolic Blood Pressure Non-Invasive [address] NATE CROW MD [address] [place] [address] 08-11-2022 09:58-0400 Heart rate 60 /min DR NATE CROW MD [address] [place] [address] 08-11-2022 09:58-0400 Respiratory rate 16 /min DR NATE CROW MD [address] [place] [address] 08-11-2022 09:58-0400 Systolic Blood Pressure Non-Invasive [address] NATE CROW MD [address] [place] [address] 08-11-2022 09:40-0400 Blood Pressure Cuff Size DR NATE CROW MD [address] [place] [address] 08-11-2022 09:40-[address] NATE CROW MD [address] [place] [address] 08-11-2022 09:40-[address] NATE CROW MD [address] [place] [address] 08-11-2022 09:40-0400 Diastolic Blood Pressure Non-Invasive [address] NATE CROW MD [address] [place] [address] 08-11-2022 09:40-0400 Heart rate 56 /min DR NATE CROW MD [address] [place] [address] 08-11-2022 09:40-0400 Respiratory rate 16 /min DR NATE CROW MD [address] [place] [address] 08-11-2022 09:40-0400 Systolic Blood Pressure Non-Invasive [address] NATE CROW MD [address] [place] [address] 08-11-2022 09:28-0400 Diastolic Blood Pressure Non-Invasive [address] NATE CROW MD [address] [place] [address] 08-11-2022 09:28-0400 Systolic Blood Pressure Non-Invasive [address] NATE CROW MD [address] [place] [address] 08-11-2022 06:21-0400 Blood Pressure Cuff Size DR NATE CROW MD [address] [place] [address] 08-11-2022 06:21-[address] NATE CROW MD [address] [place] [address] 08-11-2022 06:21-[address] NATE CROW MD [address] [place] [address] 08-11-2022 06:21-0400 Body height [address] NATE CROW MD [address] [place] [address] 08-11-2022 06:21-0400 Body temperature 97.88 [degF] DR NATE CROW MD [address] [place] [address] 08-11-2022 06:21-0400 Body weight 102.[address] NATE CROW MD [address] [place] [address] 07-23-2022 16:34-0400 Body temperature 98.2 [degF] INSPECTOR [employer]VAGE-C Denisse Sutton INSPECTOR SALVAGE Work Phone: [facility] 07-23-2022 16:34-0400 Heart rate 66 /min INSPECTOR [employer]AGE-Julian Sutton INSPECTOR SALVAGE Work Phone: [facility] 07-23-2022 16:34-0400 Respiratory rate 15 /min INSPECTOR [employer]AGE-Julian Sutton INSPECTOR [employer]VAGE Work Phone: [facility] 07-23-2022 16:34-0400 SaO2% (BldA) [Mass fraction] 96 % INSPECTOR [employer]-C Denisse Sutton INSPECTOR SALVAGE Work Phone: [facility] 07-23-2022 15:15-0400 Diastolic blood pressure 60 mm[Hg] INSPECTOR [employer]AGE-C Denisse Sutton INSPECTOR [employer]VAGE Work Phone: [facility] 07-23-2022 15:15-0400 Systolic blood pressure 131 mm[Hg] INSPECTOR SALVAGE-C Denisse Sutton INSPECTOR SALVAGE Work Phone: [facility] 07-23-2022 12:47-0400 Body height 157.48 cm INSPECTOR [employer]-C Denisse Sutton INSPECTOR SALVAGE Work Phone: [facility] 07-23-2022 12:47-0400 Body weight 98.3 kg INSPECTOR [employer]-C Denisse Sutton INSPECTOR SALVAGE Work Phone: [facility] 07-22-2022 18:59-0400 Body mass index (BMI) [Ratio] 39.6 kg/m2 INSPECTOR [employer]-C Denisse Sutton INSPECTOR SALVAGE Work Phone: [facility] 07-15-2022 14:43-0400 Heart rate 77 /min INSPECTOR [employer]-C Denisse Sutton INSPECTOR SALVAGE Work Phone: [facility] 07-15-2022 14:43-0400 Respiratory rate 21 /min INSPECTOR [employer]AGE-C Denisse Sutton INSPECTOR SALVAGE Work Phone: [facility] 07-15-2022 14:00-0400 SaO2% (BldA) [Mass fraction] 91 % INSPECTOR SALVAGE-C Denisse Sutton INSPECTOR SALVAGE Work Phone: [facility] 07-15-2022 13:23-0400 Body temperature 98.3 [degF] INSPECTOR [employer]VAGE-C Denisse Sutton INSPECTOR SALVAGE Work Phone: [facility] 07-15-2022 13:23-0400 Diastolic blood pressure 74 mm[Hg] INSPECTOR [employer]AGE-C Denisse Sutton INSPECTOR SALVAGE Work Phone: [facility] 07-15-2022 13:23-0400 Systolic blood pressure 134 mm[Hg] INSPECTOR [employer]AGE-C Denisse Sutton INSPECTOR SALVAGE Work Phone: [facility] 07-15-2022 11:58-0400 Body height 154.94 cm INSPECTOR [employer]-C Denisse Sutton INSPECTOR SALVAGE Work Phone: [facility] 07-15-2022 11:58-0400 Body weight 101.4 kg INSPECTOR [employer]-C Denisse Sutton INSPECTOR SALVAGE Work Phone: [facility] 07-15-2022 06:00-0400 Body mass index (BMI) [Ratio] 42.2 kg/m2 INSPECTOR [employer]AGE-Julian Sutton INSPECTOR SALVAGE Work Phone: [facility] 07-14-2022 12:30-0400 Inhaled oxygen flow rate 2 L/min INSPECTOR [employer]AGE-Julian Sutton INSPECTOR SALVAGE Work Phone: [facility] 07-12-2022 16:01-0400 Body temperature 97.5 [degF] [facility] 07-12-2022 16:01-0400 Diastolic blood pressure 66 mm[Hg] [facility] 07-12-2022 16:01-0400 Heart rate 61 /min [facility] 07-12-2022 16:01-0400 Respiratory rate 18 /min [facility] 07-12-2022 16:01-0400 SaO2% (BldA) [Mass fraction] 94 % [facility] 07-12-2022 16:01-0400 Systolic blood pressure 134 mm[Hg] [facility] 07-12-2022 12:54-0400 Body height 154.94 cm [facility] 07-12-2022 12:54-0400 Body mass index (BMI) [Ratio] 41.3 kg/m2 [facility] 07-12-2022 12:54-0400 Body weight 99.2 kg [facility] 07-08-2022 15:41-0400 Body height 155 cm DORIAN JAUREGUI MD [facility] 07-08-2022 15:41-0400 Body temperature 98.42 [degF] DORIAN JAUREGUI MD [facility] 07-08-2022 15:41-0400 Body weight 98 kg DORIAN JAUREGUI MD [facility] 07-08-2022 15:41-0400 Diastolic Blood Pressure Non-Invasive 63 1 DORIAN JAUREGUI MD [facility] 07-08-2022 15:41-0400 Heart rate 63 /min DORIAN JAUREGUI MD [facility] 07-08-2022 15:41-0400 Systolic Blood Pressure Non-Invasive 115 1 DORIAN JAUREGUI MD [facility] 02-25-2022 15:05-0500 Diastolic Blood Pressure Non-Invasive 78 1 JOSE OKEEFE DO [facility] 02-25-2022 15:05-0500 Heart rate 59 /min JOSE OKEEFE DO [facility] 02-25-2022 15:05-0500 Systolic Blood Pressure Non-Invasive 126 1 JOSE OKEEFE DO [facility] 02-25-2022 14:30-0500 Diastolic Blood Pressure Non-Invasive 71 1 JOSE DEGENHARD DO [facility] 02-25-2022 14:30-0500 Heart rate 60 /min JOSE OKEEFE DO [facility] 02-25-2022 14:30-0500 Systolic Blood Pressure Non-Invasive 140 1 JOSE DEGENHARD DO [facility] 02-25-2022 14:10-0500 Diastolic Blood Pressure Non-Invasive 58 1 JOSE DEGENHARD DO [facility] 02-25-2022 14:10-0500 Heart rate 55 /min JOSE DEGENHARD DO [facility] 02-25-2022 14:10-0500 Respiratory rate 16 /min JOSE OKEEFE DO [facility] 02-25-2022 14:10-0500 Systolic Blood Pressure Non-Invasive 124 1 JOSE OKEEFE DO [facility] 02-25-2022 13:40-0500 Heart rate 56 /min JOSE OKEEFE DO [facility] 02-25-2022 13:40-0500 Respiratory rate 15 /min JOSE OKEEFE DO [facility] 02-25-2022 13:25-0500 Heart rate 56 /min JOSE OKEEFE DO [facility] 02-25-2022 13:25-0500 Respiratory rate 16 /min JOSE OKEEFE DO [facility] 02-25-2022 09:05-0500 Body height 155 cm JOSE OKEEFE DO [facility] 02-25-2022 09:05-0500 Body temperature 97.16 [degF] JOSE OKEEFE DO [facility] 02-25-2022 09:05-0500 Body weight 95.9 kg JOSE OKEEFE DO [facility] 02-25-2022 09:05-0500 Body weight 39.92 kg/m2 JOSE OKEEFE DO [facility] 02-25-2022 09:05-0500 diastolic 67 mm[Hg] JOSE PRATIMAFLOYD DO [facility] 02-25-2022 09:05-0500 systolic 129 mm[Hg] JOSE PRATIMAFLOYD DO [facility] 12-15-2021 17:22-0400 Diastolic blood pressure 75 mm[Hg] RADHA HUMPHREYS MD [facility] 12-15-2021 17:22-0400 Systolic blood pressure 131 mm[Hg] RADHA HUMPHREYS MD [facility] 12-15-2021 15:07-0400 Heart rate 80 /min RADHA HUMPHREYS MD [address] [place] [address] 12-15-2021 15:07-0400 Respiratory rate 18 /min RADHA HUMPHREYS MD [address] [place] [address] 12-15-2021 14:55-0400 Body temperature 98.24 [degF] RADHA HUMPHREYS MD [address] [place] [address] 12-15-2021 14:55-0400 Diastolic blood pressure 80 mm[Hg] RADHA HUMPHREYS MD [address] [place] [address] 12-15-2021 14:55-0400 Heart rate 62 /min RADHA HUMPHREYS MD [address] [place] [address] 12-15-2021 14:55-0400 Respiratory rate 16 /min RADHA HUMPHREYS MD [address] [place] [address] 12-15-2021 14:55-0400 Systolic blood pressure 137 mm[Hg] RADHA HUMPHREYS MD [address] [place] [address] 12-15-2021 11:41-0400 Body temperature 98.06 [degF] RADHA HUMPHREYS MD [address] [place] [address] 12-15-2021 11:41-0400 Diastolic blood pressure 70 mm[Hg] RADHA HUMPHREYS MD [address] [place] [address] 12-15-2021 11:41-0400 Heart rate 61 /min RADHA HUMPHREYS MD [address] [place] [address] 12-15-2021 11:41-0400 Reason For Taking VItal Signs RADHA HUMPHREYS MD [address] [place] [address] 12-15-2021 11:41-0400 Respiratory rate 16 /min RADHA HUMPHREYS MD [address] [place] [address] 12-15-2021 11:41-0400 Systolic blood pressure 123 mm[Hg] RADHA HUMPHREYS MD [address] [place] [address] 12-15-2021 08:00-0400 Heart rate 58 /min RADHA HUMPHREYS MD [address] [place] [address] 12-15-2021 08:00-0400 Mean blood pressure 79 mm[Hg] RADHA HUMPHREYS MD [address] [place] [address] 12-15-2021 07:31-0400 Heart rate 85 /min RADHA HUMPHREYS MD [address] [place] [address] 12-15-2021 03:08-0400 Heart rate 61 /min RADHA HUMPHREYS MD [address] [place] [address] 12-15-2021 03:08-0400 Mean blood pressure 85 mm[Hg] RADHA HUMPHREYS MD [address] [place] [address] 12-15-2021 03:08-0400 Reason For Taking VItal Signs RADHA HUMPHREYS MD [address] [place] [address] 12-14-2021 19:20-0400 Mean blood pressure 86 mm[Hg] RADHA HUMPHREYS MD [address] [place] [address] 12-14-2021 15:28-0400 Body weight 97.4 kg RADHA HUMPHREYS MD [address] [place] [address] 12-14-2021 11:41-0400 Body weight 99.7 kg RADHA HUMPHREYS MD [address] [place] [address] 12-14-2021 11:41-0400 Diastolic Blood Pressure NBP 60 1 RADHA HUMPHREYS MD [address] [place] [address] 12-14-2021 11:41-0400 Systolic Blood Pressure NBP 127 1 RADHA HUMPHREYS MD [address] [place] [address] 12-13-2021 17:24-0400 Body height 160 cm RADHA HUMPHREYS MD [address] [place] [address] 12-13-2021 17:24-0400 Body weight 100 kg RADHA HUMPHREYS MD [facility] 12-13-2021 17:24-0400 Body weight 39.06 kg/m2 RADHA HUMPHREYS MD [facility] 12-13-2021 13:47-0400 Diastolic blood pressure 69 mm[Hg] EVELINA CURTIS MD [facility] 12-13-2021 13:47-0400 Heart rate 61 /min EVELINA CURTIS MD [facility] 12-13-2021 13:47-0400 Systolic blood pressure 141 mm[Hg] EVELINA CURTIS MD [facility] 12-13-2021 13:38-0400 Diastolic blood pressure 64 mm[Hg] EVELINA CURTIS MD [facility] 12-13-2021 13:38-0400 Heart rate 60 /min EVELINA CURTIS MD [facility] 12-13-2021 13:38-0400 Systolic blood pressure 135 mm[Hg] EVELINA CURTIS MD [facility] 12-13-2021 12:19-0400 Diastolic blood pressure 69 mm[Hg] EVELINA CURTIS MD [facility] 12-13-2021 12:19-0400 Heart rate 62 /min EVELINA CURTIS MD [facility] 12-13-2021 12:19-0400 Systolic blood pressure 159 mm[Hg] EVELINA CURTIS MD [facility] 12-13-2021 10:11-0400 Respiratory rate 22 /min EVELINA CURTIS MD [facility] 12-13-2021 07:14-0400 Respiratory rate 21 /min EVELINA CURTIS MD [facility] 12-13-2021 06:16-0400 Mean blood pressure 86 mm[Hg] EVELINA CURTIS MD [facility] 12-13-2021 06:16-0400 Respiratory rate 24 /min EVELINA CURTIS MD [facility] 12-13-2021 04:31-0400 Body temperature 99.32 [degF] EVELINA CURTIS MD [facility] 11-04-2021 14:50-0400 Body height [address] DEAN SHAH MD [facility] 11-04-2021 14:50-0400 Body temperature 98.06 [degF] DR DEAN SHAH MD [facility] 11-04-2021 14:50-0400 Body weight [address] DEAN SHAH MD [facility] 11-04-2021 14:50-0400 Diastolic blood pressure 79 mm[Hg] DR DEAN SHAH MD [facility] 11-04-2021 14:50-0400 Heart rate 68 /min DR DEAN SHAH MD [facility] 11-04-2021 14:50-0400 Respiratory rate 20 /min DR DEAN SHAH MD [facility] 11-04-2021 14:50-0400 Systolic blood pressure 154 mm[Hg] DR DEAN SHAH MD [facility] 08-30-2021 13:09-0400 Body height 160.02 cm Macarena S Luis Work Phone: ND-Myxymyeium-Dcc her Work Phone: 08-30-2021 13:09-0400 Body mass index (BMI) [Ratio] 37.73 kg/m2 Macarena S Luis Work Phone: YW-Cmngbhsdit-Zmy her Work Phone: 08-30-2021 13:09-0400 Body surface area Derived from formula 1.99 m2 Macarena S Luis Work Phone: OX-Jzccouibll-Efi her Work Phone: 08-30-2021 13:09-0400 Body temperature 97.7 [degF] Macarena S Luis Work Phone: HM-Bbdktdrwmi-Lnp her Work Phone: 08-30-2021 13:09-0400 Body weight 96.62 kg Macarena S Luis Work Phone: VL-Vvpihfjric-Rpe her Work Phone: 08-30-2021 13:09-0400 Diastolic blood pressure 72 mm[Hg] Macarena S Luis Work Phone: TG-Oooeqaltvp-Ojr her Work Phone: 08-30-2021 13:09-0400 Heart rate 62 /min Macarena S Luis Work Phone: EW-Siwrnmuwgx-Sui her Work Phone: 08-30-2021 13:09-0400 SaO2% (BldA) [Mass fraction] 95 % Macarena S Luis Work Phone: ZV-Kdqoxazkbm-Kqt her Work Phone: 08-30-2021 13:09-0400 Systolic blood pressure 116 mm[Hg] Macarena S Luis Work Phone: GN-Itnhrecczy-Qfw her Work Phone: 08-30-2021 13:09-0400 0 1 Macarena Smith Work Phone: BA-Ambaxqjvla-Zcz her Work Phone: Comment on above: [employer] 05-10-2018 13:52-0500 Body temperature 98.6 [degF] [facility] Comment on above: Performed By: #### UACUL #### [facility] [address] [address] 05-09-2018 17:45-0500 Body temperature 98.6 [degF] [facility] Comment on above: Performed By: #### CBCD #### Main Laboratory [address] [address] 05-08-2018 17:35-0500 Body temperature 98.6 [degF] [facility] Comment on above: Performed By: #### ABG ####[facility] [address] Encounters Encounter Date Encounter Type Care Provider Facility Start: 01-11-2025 ambulatory DENISSE SUTTON APRN-SAP PORTAL DEVELOPER Facility:[facility] Start: 12-31-2024 End: 01-02-2025 Emergency department patient visit DENISSE SUTTON 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 Facility:[facility] Start: 12-31-2024 End: 01-02-[address] TOÑITO COVINGTON MD [facility] Start: 12-30-2024 End: 12-30-2024 Patient encounter procedure SHUBHAM VENTURA 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 [facility] Start: 12-30-2024 End: 01-03-2025 ambulatory SHUBHAM VENTURA 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 Facility:[facility] Start: 12-30-2024 End: 01-03-2025 Outreach Lab SHUBHAM VENTURA 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 [facility] Start: 12-21-2024 End: 01-18-2025 ambulatory DENISSE SUTTON 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 Facility:[facility] Start: 12-21-2024 End: 01-18-2025 OTHER THERAPY DENISSE SUTTON 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 [facility] Start: 11-08-2024 End: 11-11-2024 Evaluation and management of inpatient RADHA HUMPHREYS MD [facility] Start: 11-08-2024 End: 11-08-2024 Emergency department patient visit LARRY BARRERA MD [facility] Start: 10-26-2024 End: 10-30-2024 ambulatory DENISSE SUTTON 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 Facility:[facility] Start: 10-26-2024 End: 10-30-2024 Outreach Lab DENISSE SUTTON 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 [facility] Start: 10-11-2024 Non-patient / Non-visit [facility] Work Phone: Start: 10-10-2024 ambulatory Denisse Sutton NP Facil ity:[facility] Start: 10-10-2024 End: 10-11-2024 Evaluation and management of inpatient Dr. Cipriano Baldwin DO [facility] Work Phone: Start: 10-10-2024 Non-patient / Non-visit [facility] Work Phone: Start: 10-09-2024 Non-patient / Non-visit [facility] Work Phone: Start: 10-09-2024 ambulatory Denisse Sutton NP Facil [facility]y:[facility] Start: 10-09-2024 Evaluation and management of inpatient Dr. Cipriano Baldwin DO [facility] Work Phone: Start: 10-09-2024 observation encounter Denisse Sutton INSPECTOR [employer]VAGE-C Work Phone: [facility] Start: 09-22-2024 ambulatory DENISSE SUTTON 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 Facility:[facility] Start: 08-16-2024 End: 08-16-2024 ambulatory DENISSE SUTTON 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 Facility:[facility] Start: 08-16-2024 End: 08-16-2024 Patient encounter procedure DENISSE SUTTON 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 [facility] Start: 08-04-2024 Non-patient / Non-visit Dr. Sondra Dumont DO [facility] Work Phone: Start: 08-02-2024 Non-patient / Non-visit Dr. Sondra Dumont DO [facility] Work Phone: Start: 08-01-2024 Non-patient / Non-visit Dr. Eboni Polanco MD [facility] Work Phone: Start: 07-31-2024 ambulatory Georgina Gill Facility :[facility] Start: 07-31-2024 End: 08-02-2024 Evaluation and management of inpatient Dr. Sondra Dumont DO [facility] Work Phone: Start: 07-31-2024 End: 07-31-2024 Emergency department patient visit TORRI MCCLAIN DO [facility] Start: 07-30-2024 End: 07-30-2024 Emergency department patient visit DR REENA LAMAS DO [facility] Start: 04-20-2024 End: 04-20-2024 ambulatory DENISSE LORCAROL 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 Facility:[facility] Start: 04-20-2024 End: 04-20-[address] NATE CROW MD [facility] Start: 03-14-2024 End: 03-14-2024 Emergency department patient visit Denisse Sutton INSPECTOR SALVAGE Facility:[facility] Start: 03-12-2024 End: 03-12-2024 Emergency department patient visit Denisse Sutton INSPECTOR SALVAGE Facility:[facility] Start: 01-20-2024 End: 01-20-2024 Patient encounter procedure DENISSE LESLEY 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 [facility] Start: 12-14-2023 ambulatory Mahamed Shaun Facility: [facility] Start: 12-14-2023 End: 12-18-2023 Evaluation and management of inpatient Mahamed Shaun Facility:[facility] Start: 11-18-2023 ambulatory [facility] Facility: [facility] Start: 11-18-2023 End: 11-21-2023 Evaluation and management of inpatient Georgina Uche Gill Facility:[facility] Start: 11-18-2023 End: 11-18-2023 Emergency department patient visit EVELINA CURTIS MD [facility] Start: 11-05-2023 End: 11-05-2023 ambulatory DENISSE SUTTON 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 Facility:[facility] Start: 11-05-2023 End: 11-05-2023 Patient encounter procedure DENISSE SUTTON 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 [facility] Start: 10-14-2023 ambulatory DENISSE SUTTON 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 Facility:[facility] Start: 10-11-2023 End: 10-11-2023 Emergency department patient visit DR FREDDIE BURRIS DO [facility] Start: 10-09-2023 ambulatory DENISSE SUTTON 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 Facility:[facility] Start: 09-10-2023 ambulatory DENISSE SUTTON 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 Facility:[facility] Start: 09-08-2023 ambulatory JEREMY DICKINSON MD Facility:[id number] Start: 09-08-2023 End: 09-08-2023 Subsequent hospital visit by physician Jeremy Dickinson MD Work Phone: [facility] Comment on above: Chronic kidney disea se, unspecified CKD stage [N18.9] Start: 09-02-2023 End: 09-02-[address] NATE CROW MD Facility:B Start: 09-02-2023 End: 09-02-[address] NATE CROW MD [facility] Start: 07-17-2023 Non-patient / Non-visit INSPECTOR SALVAGE-C Denisse Sutton INSPECTOR SALVAGE Work Phone: [facility] Start: 07-17-2023 End: 07-17-2023 ambulatory INSPECTOR SALVAGE-C Denisse Sutton INSPECTOR SALVAGE Work Phone: [facility] Work Phone: Start: 07-17-2023 End: 07-17-2023 Patient encounter procedure INSPECTOR SALVAGE-C Denisse Sutton INSPECTOR SALVAGE [facility] Start: 07-01-2023 End: 07-01-2023 Patient encounter procedure INSPECTOR SALVAGE-C Denisse Sutton INSPECTOR SALVAGE Work Phone: [facility] Work Phone: Start: 05-27-2023 End: 05-27-2023 Patient encounter procedure INSPECTOR SALVAGE-C Denisse Sutton INSPECTOR SALVAGE Work Phone: [facility] Vascular Surgery Work Phone: Start: 05-26-2023 End: 05-26-[address] NATE CROW MD Facility:B Start: 05-26-2023 End: 05-26-[address] NATE CROW MD [facility] Start: 05-01-2023 End: 05-01-2023 Patient encounter procedure INSPECTOR SALVAGE-C Denisse Sutton INSPECTOR SALVAGE Work Phone: [facility]-Pre-Admission Testing Work Phone: Start: 04-29-2023 End: 05-03-2023 ambulatory DENISSE SUTTON 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 Facility:B Start: 04-29-2023 End: 05-03-2023 Outreach Lab DENISSE SUTTON 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 [facility] Start: 04-27-2023 Non-patient / Non-visit INSPECTOR SALVAGE-C Denisse Sutton INSPECTOR SALVAGE Work Phone: [facility] Start: 04-27-2023 End: 04-27-2023 Admission to same day surgery center INSPECTOR SALVAGE-C Denisse Sutton INSPECTOR SALVAGE Work Phone: [facility]-Surgical Day Care Start: 04-27-2023 End: 04-27-2023 ambulatory INSPECTOR SALVAGE-C Denisse Sutton INSPECTOR SALVAGE Work Phone: [facility] Work Phone: Start: 04-24-2023 End: 04-24-2023 ambulatory INSPECTOR SALVAGE-C Denisse Sutton INSPECTOR SALVAGE Work Phone: [facility] Work Phone: Start: 04-24-2023 End: 04-24-2023 Patient encounter procedure INSPECTOR SALVAGE-C Denisse Sutton INSPECTOR SALVAGE Work Phone: [facility]-Laboratory Work Phone: Start: 04-15-2023 End: 04-15-2023 Patient encounter procedure INSPECTOR SALVAGE-C Denisse Sutton INSPECTOR SALVAGE Work Phone: [facility] Vascular Surgery Work Phone: Start: 02-24-2023 ambulatory DENISSE SUTTON 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 Facility:B Start: 02-11-2023 End: 02-11-2023 Patient encounter procedure INSPECTOR [employer]VAGE-C Denisse Sutton INSPECTOR SALVAGE Work Phone: [facility] Vascular Surgery Work Phone: Start: 01-22-2023 Non-patient / Non-visit INSPECTOR SALVAGE-C Denisse Sutton INSPECTOR SALVAGE Work Phone: [facility] Start: 01-22-2023 End: 01-22-2023 Admission to same day surgery center INSPECTOR SALVAGE-C Denisse Sutton INSPECTOR SALVAGE Work Phone: [facility]-Prop Worker/Special Procedures Work Phone: Start: 01-22-2023 End: 01-22-2023 ambulatory INSPECTOR [employer]VAGE-C Denisse Sutton INSPECTOR SALVAGE Work Phone: [facility] Work Phone: Start: 01-20-2023 End: 01-20-2023 ambulatory DENISSE SUTTON 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 Facility:B Start: 01-20-2023 End: 01-20-2023 Patient encounter procedure DENISSE SUTTON 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 [facility] Start: 12-17-2022 Non-patient / Non-visit INSPECTOR SALVAGE-C Denisse Sutton INSPECTOR SALVAGE Work Phone: [facility] Start: 12-17-2022 End: 12-17-2022 ambulatory INSPECTOR [employer]VAGE-C Denisse Sutton INSPECTOR SALVAGE Work Phone: [facility] Work Phone: Start: 12-17-2022 End: 12-17-2022 Patient encounter procedure INSPECTOR [employer]VAGE-C Denisse Sutton INSPECTOR SALVAGE Work Phone: [facility]-Cardiovascular Services Work Phone: Start: 12-10-2022 End: 12-10-2022 Patient encounter procedure INSPECTOR [employer]VAGE-C Denisse Sutton INSPECTOR SALVAGE Work Phone: [facility] Vascular Surgery Work Phone: Start: 11-18-2022 End: 11-18-2022 SAME DAY STAY LEE CASH MD [facility] Start: 11-10-2022 End: 11-10-2022 Emergency department patient visit CALDERON PHAN DO [facility] Start: 10-23-2022 End: 10-24-[address] TOÑITO COVINGTON MD [facility] Start: 08-28-2022 End: 08-29-2022 Emergency department patient visit DR FREDDIE BURRIS DO [facility] Start: 08-11-2022 End: 08-11-[address] NATE CROW MD [facility] Start: 08-06-2022 End: 08-06-[address] NATE CROW MD [facility] Start: 07-23-2022 Non-patient / Non-visit INSPECTOR SALVAGE-C Denisse Sutton INSPECTOR SALVAGE Work Phone: [facility] Start: 07-22-2022 Non-patient / Non-visit INSPECTOR SALVAGE-C Denisse Sutton INSPECTOR SALVAGE Work Phone: [facility] [facility] Start: 07-22-2022 End: 07-23-2022 Evaluation and management of inpatient INSPECTOR SALVAGE-C Denisse Sutton INSPECTOR SALVAGE Work Phone: [facility]-Progressive Care Unit Start: 07-22-2022 End: 07-23-2022 observation encounter INSPECTOR SALVAGE-C Denisse Sutton INSPECTOR SALVAGE Work Phone: [facility] Work Phone: Start: 07-15-2022 Non-patient / Non-visit INSPECTOR SALVAGE-C Denisse Sutton INSPECTOR SALVAGE Work Phone: [facility] Start: 07-14-2022 Non-patient / Non-visit INSPECTOR SALVAGE-C Denisse Sutton INSPECTOR SALVAGE Work Phone: [facility] Start: 07-13-2022 Non-patient / Non-visit INSPECTOR SALVAGE-C Denisse Sutton INSPECTOR SALVAGE Work Phone: [facility] Start: 07-12-2022 Non-patient / Non-visit INSPECTOR SALVAGE-C Denisse Sutton INSPECTOR SALVAGE Work Phone: [facility] Start: 07-12-2022 End: 07-15-2022 Evaluation and management of inpatient [facility]-Medical Surgical 3 Start: 07-08-2022 End: 07-08-2022 Emergency department patient visit DORIAN JAUREGUI MD [facility] Start: 04-15-2022 End: 04-19-2022 Outreach Lab DENISSE SUTTON 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 [facility] Start: 02-25-2022 End: 02-25-2022 SAME DAY STAY JOSE OKEEFE DO [facility] Start: 01-22-2022 End: 01-22-2022 Patient encounter procedure DENISSE SUTTON 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 [facility] Start: 01-22-2022 End: 01-22-[address] NATE CROW MD [facility] Start: 01-10-2022 End: 01-10-[address] NATE CROW MD [facility] Start: 12-13-2021 End: 12-15-2021 Evaluation and management of inpatient RADHA HUMPHREYS MD [facility] Start: 12-13-2021 End: 12-13-2021 Emergency department patient visit EVELINA CRUTIS MD [facility] Start: 12-11-2021 End: 12-15-2021 Outreach Lab MONICA CANDELARIO 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 [facility] Start: 12-11-2021 End: 12-11-2021 Patient encounter procedure MONICA CANDELARIO 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 [facility] Start: 12-11-2021 End: 12-11-[address] NATE CROW MD [facility] Start: 11-22-2021 End: 11-22-2021 Patient encounter procedure DENISSE SUTTON 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 [facility] Start: 11-04-2021 End: 11-04-2021 Emergency department patient visit DR DEAN SHAH MD [facility] Start: 10-10-2021 End: 10-10-2021 Patient encounter procedure DENISSE SUTTON 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 [facility] Start: 09-13-2021 End: 09-13-2021 Patient encounter procedure DENISSE SUTTON 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 [facility] Start: 08-30-2021 Patient encounter procedure Macarena Smith Work Phone: [facility] Work Phone: Start: 07-31-2021 End: 07-31-2021 Patient encounter procedure DENISSE LESLEY 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 [facility] Start: 01-10-2021 End: 01-10-2021 Patient encounter procedure BOBBY MONTEJO MD [facility] Start: 01-08-2021 End: 01-08-2021 Patient encounter procedure BOBBY MONTEJO MD [facility] Start: 06-16-2018 End: 06-16-2018 Patient encounter procedure [facility] Patient encounter status Macarena Smith Work Phone: [facility] Work Phone: Procedures Date Procedure Procedure Detail Performing Clinician Start: 10-11-2024 Estimated creatinine clearance Denisse Lesley INSPECTOR [employer]VAGE-C Work Phone: Start: 10-09-2024 Gram stain microscopy L dorie Sutton INSPECTOR SALVAGE-C Work Phone: Start: 10-09-2024 Respiratory microbia l culture Denisse Sutton INSPECTOR SALVAGE-C Work Phone: Start: 10-09-2024 SARS-CoV-2, Influenz a & RSV (PCR) Denisse Clarkcarol INSPECTOR SALVAGE-C Work Phone: Start: 10-09-2024 X-ray of chest, PA a nd lateral views Denisse Clarkcarol INSPECTOR SALVAGE-C Work Phone: Start: 10-09-2024 Estimated creatinine clearance Denisse Clarkcarol INSPECTOR SALVAGE-C Work Phone: Start: 08-01-2024 Clostridium difficil e detection Denisse Clarkcarol INSPECTOR SALVAGE-C Work Phone: Start: 08-01-2024 Gram stain microscopy L dorie Clarkcarol INSPECTOR SALVAGE-C Work Phone: Start: 08-01-2024 Nucleic acid assay Mark olmedorichard Lesley INSPECTOR SALVAGE-C Work Phone: Start: 08-01-2024 Respiratory microbia l culture Denisse Sutton INSPECTOR SALVAGE-C Work Phone: Start: 08-01-2024 Estimated creatinine clearance Denisse Sutton INSPECTOR SALVAGE-C Work Phone: Start: 08-01-2024 Iadna-dna/rna gi pth gn multiplex probe tq 6-11 Denisse Sutton INSPECTOR [employer]VAGE-C Work Phone: Start: 07-31-2024 X-ray of chest, PA a nd lateral views Denisse Sutton INSPECTOR SALVAGE-C Work Phone: Start: 07-31-2024 Serum inorganic phos phate measurement Denisse Sutton INSPECTOR SALVAGE-C Work Phone: Start: 07-31-2024 Nucleic acid assay Mark Sutton INSPECTOR SALVAGE-C Work Phone: Start: 07-31-2024 SARS-CoV-2, Influenz a & RSV (PCR) Denisse Sutton INSPECTOR SALVAGE-C Work Phone: Start: 09-08-2023 End: 09-08-2023 Rmvl tamika cvc w/o subq port/sensitometrist Abed Trino Aguirre MD Work Phone: Start: 04-27-2023 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 INSPECTOR SALVAGE-C Denisse Sutton INSPECTOR SALVAGE Work Phone: Start: 03-30-2023 Fistula (morphologic abnormality) DENISSE SUTTON 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 Start: 07-22-2022 MRI of brain without contrast INSPECTOR [employer]VAGE-C Denisse Sutton INSPECTOR SALVAGE Work Phone: Start: 07-22-2022 Plain chest X-ray INSPECTOR SALVAGE-C Denisse Sutton INSPECTOR SALVAGE Work Phone: Start: 07-22-2022 CT of head without contrast INSPECTOR SALVAGE-C Denisse Sutton INSPECTOR SALVAGE Work Phone: Start: 07-12-2022 Plain chest X-ray Start: 07-12-2022 CT cervical spine wi thout contrast Start: 07-12-2022 CT of face Start: 07-12-2022 CT of head without contrast Start: 03-30-2022 Cholecystectomy DENISSE SUTTON 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 Start: 01-22-2022 Echocardiography JT OKEEFE DO Start: 01-10-2022 Cardiovascular stres s testing JOSE OKEEEF DO Start: 05-27-2021 Cardiac catheterization DENISSE SUTTON CUSTOMER PROGRAM MANAGER-[employer] Comment on above: [place] Start: 04-19-2021 Cardiovascular stres s testing DENISSE SUTTON CUSTOMER PROGRAM MANAGER-[employer] Comment on above: [place] Start: 03-30-2021 Fistula (morphologic abnormality) DENISSE SUTTON 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 Start: 01-21-2021 Echocardiography AMANUEL SUTTON CUSTOMER PROGRAM MANAGER-[employer] Comment on above: [place] Start: 08-21-2020 Doppler ultrasonogra phy of bilateral carotid arteries DENISSE SUTTON CUSTOMER PROGRAM MANAGER-[employer] Start: 06-15-2018 Lipid 1996 panel - S brigitte or Plasma Jeremy Aguirre MD, MD Work Phone: Start: 05-10-2018 Electrocardiogram Start: 05-08-2018 Electrocardiogram Start: 06-28-2016 History of placement of stent for coronary artery disease History of coronary artery stent placement Comment on above: Drug-eluting stent p lacement to LAD and OM1 07/15/2016 Appendectomy BOBBY MONTEJO MD Appendectomy Macarena S Luis Work Phone: section Macarena S Luis Work Phone: History of placement of stent for coronary artery disease H/O heart artery stent Macarena S Luis Work Phone: Investigation of tra nsfusion reaction INSPECTOR SALVAGE-C Denisse Sutton NP Work Phone: Knee Surgery Macarena S Luis Work Phone: Legionella pneumophi la antigen assay INSPECTOR SALVAGE-Julian Sutton INSPECTOR SALVAGE Work Phone: Other bilateral liga tion and division of fallopian tubes Macarena Smith Work Phone: Respiratory microbia l culture INSPECTOR SALVAGE-C Denisse Sutton INSPECTOR SALVAGE Work Phone: SARS-CoV-2 & FLU Ant igen (Rapid) Stent, device (physi heather object) BOBBY MONTEJO MD Comment on above: cardiac x 5 Streptococcus pneumo niae Antigen (M INSPECTOR SALVAGE-Julian Sutton INSPECTOR SALVAGE Work Phone: Plan of Treatment Date Care Activity Detail Author Start: 03-04-2027 Urine microalbumin profile DTaP,Tdap,Td Vaccine (3 - Td or Tdap) [facility] Start: 10-11-2024 Patient discharge [facility] Start: 10-11-2024 End: 10-11-2024 [facility] Start: 10-11-2024 Hemodialysis care [facility] Start: 10-10-2024 Referral to grounds keeper [facility] Start: 10-10-2024 Admission procedure [facility] Start: 10-09-2024 Oxygen therapy [facility] Start: 10-09-2024 Following clinical pathway protocol [facility] Start: 10-09-2024 Ambulation without limitation [facility] Start: 10-09-2024 Assessment of risk of venous thromboembolism [facility] Start: 10-09-2024 Elevation of head of bed [facility] Start: 10-09-2024 Inhalation therapy procedure [facility] Start: 10-09-2024 Insertion of catheter into peripheral vein [facility] Start: 10-09-2024 Patient education [facility] Start: 10-09-2024 Providing care according to standard [facility] Start: 10-09-2024 [facility] Start: 10-09-2024 Streptococcus pneumoniae antigen assay [facility] Start: 10-09-2024 Verification routine [facility] Start: 10-09-2024 Admission procedure [facility] Start: 08-30-2024 Diabetes Screening Diabetes Screening [facility] Start: 08-02-2024 Patient discharge [facility] Start: 08-02-2024 [facility] Start: 08-02-2024 Contact precautions [facility] Start: 08-02-2024 Respiratory secretion precautions [facility] Start: 08-02-2024 End: 08-02-2024 [facility] Start: 08-02-2024 Hemodialysis care [facility] Start: 08-01-2024 [facility] Start: 08-01-2024 [facility] Start: 07-31-2024 Following clinical pathway protocol [facility] Start: 07-31-2024 Venous catheter care management [facility] Start: 07-31-2024 Assessment of risk of venous thromboembolism [facility] Start: 07-31-2024 Care regimes management [facility] Start: 07-31-2024 Fall prevention [facility] Start: 07-31-2024 Incentive spirometry [facility] Start: 07-31-2024 Insertion of catheter into peripheral vein [facility] Start: 07-31-2024 Introduction of urinary catheter [facility] Start: 07-31-2024 Measuring intake and output [facility] Start: 07-31-2024 Notification of physician [facility] Start: 07-31-2024 Oxygen therapy [facility] Start: 07-31-2024 Providing care according to standard [facility] Start: 07-31-2024 Provision of activity privileges [facility] Start: 07-31-2024 Referral to grounds keeper [facility] Start: 07-31-2024 Referral to occupational therapist [facility] Start: 07-31-2024 Referral to service [facility] Start: 07-31-2024 End: 07-31-2024 [facility] Start: 07-31-2024 Admission procedure [facility] Start: 11-29-2023 Influenza vaccination Influenza Vaccine (Season Ended) [facility] Start: 06-16-2023 Lipid panel Lipid Screening [facility] Start: 04-27-2023 Anesthesia vascular shunt/shunt revision ANESTH VASCULAR SHUNT SURG [facility] Start: 04-27-2023 Arven anast opn upr arm cephalic vein trpos AV FUSE UPPR ARM CEPHALIC [facility] Start: 04-27-2023 Patient discharge [facility] Start: 04-27-2023 Dialysis care [facility] Start: 03-30-2023 Behavioral Health Screening Behavioral Health Screening [facility] Start: 01-22-2023 Patient discharge [facility] Start: 11-28-2022 Covid-19 Vaccine ( season) Covid-19 Vaccine () [facility] Start: 07-23-2022 Patient discharge [facility] Start: 07-22-2022 Consultation [facility] Start: 07-22-2022 Ambulation without limitation [facility] Start: 07-22-2022 Assessment of risk of venous thromboembolism [facility] Start: 07-22-2022 Care regimes management [facility] Start: 07-22-2022 Catheterization of vein [facility] Start: 07-22-2022 Insertion of catheter into peripheral vein [facility] Start: 07-22-2022 Measuring intake and output [facility] Start: 07-22-2022 Providing care according to standard [facility] Start: 07-22-2022 End: 07-22-2022 [facility] Start: 07-22-2022 Admission procedure [facility] Start: 07-22-2022 Following clinical pathway protocol [facility] Start: 07-22-2022 Patient referral to dietitian [facility] Start: 07-15-2022 Patient discharge [facility] Start: 07-14-2022 [facility] Start: 07-13-2022 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 to grounds keeper [facility] Start: 07-12-2022 Following clinical pathway protocol [facility] Start: 07-12-2022 Assessment of risk of venous thromboembolism [facility] Start: 07-12-2022 Bacteria identified in Sputum by Culture [facility] Start: 07-12-2022 Care regimes management [facility] Start: 07-12-2022 Catheterization of vein [facility] Start: 07-12-2022 Inhalation therapy procedure [facility] Start: 07-12-2022 Insertion of catheter into peripheral vein [facility] Start: 07-12-2022 Oxygen therapy [facility] Start: 07-12-2022 Providing care according to standard [facility] Start: 07-12-2022 Provision of activity privileges [facility] Start: 07-12-2022 Referral to occupational therapist [facility] Start: 07-12-2022 Referral to service [facility] Start: 07-12-2022 Respiratory therapy [facility] Start: 07-12-2022 [facility] Start: 07-12-2022 Legionella pneumophila Ag [Presence] in Urine [facility] Start: 07-12-2022 Streptococcus pneumoniae antigen assay [facility] Start: 07-12-2022 Verification routine [facility] Start: 07-12-2022 Admission procedure [facility] Start: 01-26-2019 Screening for malignant neoplasm of breast Mammogram Screening [facility] Start: 12-23-2015 Shingrix Vaccine (1 of 2) Shingrix Vaccine (1 of 2) [facility] Start: 2010 Screening for malignant neoplasm of colon [facility] Start: 1986 Screening for malignant neoplasm of cervix Cervical Cancer Screening [facility] Start: 1984 Hepatitis B Vaccine (1 of 3 - 19+ 3-dose series) Hepatitis B Vaccine (1 of 3 - 19+ 3-dose series) [facility] Start: 12-23-1983 HIV screening HIV Screening [facility] Anion gap in Serum o r Plasma [facility] Bacteria identified in Sputum by Respiratory culture [facility] Bilirubin measuremen t, urine [facility] BUN/Creatinine ratio [facility] Calcium [Mass/volume ] in Serum or Plasma [facility] Carbon dioxide, tota l [Moles/volume] in Central venous blood [facility] Creatinine [Mass/vol ume] in Serum or Plasma [facility] Erythrocyte mean corpuscular volume determination [facility] Glucose [Mass/volume ] in Serum or Plasma [facility] Hematocrit [Volume Fraction] of Blood [facility] Hematocrit [Volume Fraction] of Blood [facility] Hemoglobin [Mass/vol ume] in Blood [facility] Hemoglobin [Mass/vol ume] in Blood [facility] Hemoglobin [Presence ] in Urine [facility] Legionella pneumophi la Ag [Presence] in Urine [facility] Leukocytes [#/volume ] in Blood [facility] Leukocytes [#/volume ] in Blood [facility] Mean corpuscular hem oglobin concentration determination [facility] Mean corpuscular hem oglobin concentration determination [facility] Mean corpuscular hem oglobin determination [facility] Mean corpuscular hem oglobin determination [facility] Measurement of keton es in urine using dipstick [facility] Measurement of renal function [facility] Microscopic observat ion [Identifier] in Unspecified specimen by Gram stain [facility] Microscopic urinalysis [facility] Neutrophil count [facility] Neutrophil count [facility] Neutrophil percent differential count [facility] Neutrophil percent differential count [facility] Patient referral [facility] Work Phone: pH of Urine [facility] Platelets [#/volume] in Blood [facility] Platelets [#/volume] in Blood [facility] Potassium measurement [facility] Red blood cell count [facility] Red blood cell count [facility] Red cell distributio n width determination [facility] Red cell distributio n width determination [facility] Serum chloride measurement [facility] Sodium measurement [facility] Specific gravity of Urine [facility] Urea nitrogen [Mass/ volume] in Serum or Plasma [facility] Urinalysis, blood, qualitative [facility] Urine dipstick for glucose [facility] Urine dipstick for leukocyte esterase [facility] Urine dipstick for nitrite [facility] Urine dipstick for protein [facility] [facility] Urine microscopy: epithelial cells [facility] Urine Microscopy: wh ite cells [facility] Urobilinogen [Presen ce] in Urine [facility] Immunizations Immunization Date Immunization Notes Care Provider Fa cili 01-11-2025 Pneumococcal conjuga te PCV20, polysaccharide [id number] conjugate, adjuvant, PF; Translations: [Prevnar 20] DENISSE SUTTON 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 [facility] [place] 12-31-2024 influenza virus vacc ine, unspecified formulation DENISSE SUTTON 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 [facility] 04-11-2021 COVID-19, mRNA, LNP- S, PF, 30 mcg/0.3 mL dose; Translations: [Pfizer-BioNTech COVID-19 Vaccine] DENISSE CLARKCAROL 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 [facility] 03-21-2021 COVID-19, mRNA, LNP- S, PF, 30 mcg/0.3 mL dose; Translations: [Pfizer-BioNTech COVID-19 Vaccine] DENISSE LESLEY 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 [facility] 04-22-2017 pneumococcal polysaccharide vaccine, 23 valent DENISSE CLARKCAROL 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 [facility] 03-04-2017 tetanus toxoid, redu benito diphtheria toxoid, and acellular pertussis vaccine, adsorbed DENISSE CLARKCAROL 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 [facility] Payers Date Payer Category Payer Medicare [id number] 2024 Unknown 2023 Self-pay [id number] 2023 Unknown [id number] 2021 Medicaid [id number] 2021 Medicaid [id number] 2021 Unknown [id number] 2020 Unknown [id number] 2020 Medicare [id number] 2020 Private Health Insurance [id number] 1965 Unknown [id number] 2.16.8 40.1.531258.3.579.2. 1965 Unknown [id number] 2.16.8 40.1.440589.3.579.2. 1965 Unknown [id number] 2.16.8 40.1.807471.3.579.2. 1965 Unknown [id number] 2.16.8 40.1.053548.3.579.2. 1965 Unknown [id number] 2.16.8 40.1.741268.3.579.2. 1965 Unknown [id number] 2.16.8 40.1.162928.3.579.2. 1965 Unknown [id number] 2.16.8 40.1.521588.3.579.2. 1965 Unknown [id number] 2.16.8 40.1.744302.3.579.2. 1965 Unknown [id number] 2.16.8 40.1.645732.3.579.2. 1965 Unknown [id number] 2.16.8 40.1.928210.3.579.2. 1965 Unknown [id number] 2.16.8 40.1.838648.3.579.2. 1965 Unknown [id number] 2.16. 840.1.316590.3.579.2. 1965 Unknown [id number] 2.16. 840.1.005740.3.579.2. 1965 Unknown [id number] 2.16. 840.1.771679.3.579.2.627 1965 Unknown [id number] 2.16. 840.1.248504.3.579.2.62 1965 Unknown [id number] 2.16. 840.1.361138.3.579.2.62 1965 Unknown [id number] 2.16. 840.1.796393.3.579.2. 1965 Unknown [id number] 2.16. 840.1.418724.3.579.2.62 1965 Unknown [id number] 2.16. 840.1.990702.3.579.2. 1965 Unknown [id number] 2.16. 840.1.588875.3.579.2. 1965 Unknown [id number] 2.16.8 40.1.866790.3.579.2. 1965 Unknown [id number] 2.16.8 40.1.764742.3.579.2. 1965 Unknown [id number] 2.16.8 40.1.925179.3.579.2. 1965 Unknown [id number] 2.16.8 40.1.151912.3.579.2.627 Unknown [id number] Unknown [id number] 2.16.8 40.1.690730.3.579.2.462 Unknown [id number] 2.16.8 40.1.394153.3.579.2.462 Unknown [id number] 2.16.8 40.1.691850.3.579.2.462 Unknown [id number] 2.16.8 40.1.008186.3.579.2.462 Unknown [id number] 2.16.8 40.1.517238.3.579.2.462 Unknown [id number] 2.16.8 40.1.301237.3.579.2.462 Unknown [id number] 2.16.8 40.1.597131.3.579.2.462 Unknown [id number] 2.16.8 40.1.699135.3.579.2.462 Unknown [id number] 2.16.8 40.1.728495.3.579.2.462 Unknown [id number] 2.16.8 40.1.945453.3.579.2.462 Unknown [id number] 2.16.8 40.1.642876.3.579.2.462 Unknown [id number] 2.16.8 40.1.086157.3.579.2.462 Unknown [id number] 2.16.8 40.1.731482.3.579.2.462 Unknown [id number] 2.16.8 40.1.125457.3.579.2.462 Unknown [id number] 2.16.8 40.1.787566.3.579.2.462 Unknown [id number] 2.16.8 40.1.566091.3.579.2.462 Unknown [id number] 2.16.8 40.1.062454.3.579.2.462 Unknown [id number] 2.16.8 40.1.572215.3.579.2.462 Unknown [id number] 2.16.8 40.1.807039.3.579.2.462 Unknown [id number] 2.16.8 40.1.311845.3.579.2.462 Unknown [id number] 2.16.8 40.1.458958.3.579.2.462 Unknown [id number] 2.16.8 40.1.113170.3.579.2.462 Unknown [id number] 2.16.8 40.1.562586.3.579.2.462 Unknown [id number] 2.16.8 40.1.031543.3.579.2.462 Unknown [id number] 2.16.8 40.1.432925.3.579.2.462 Social History Date Type Detail Facility Start: 08-09-2020 Never smoked t obacco (finding) [facility] Start: 1965 Sex Assigned At Female A [facility] Start: 03-05-2012 End: 09-08-2023 Never smoker Never smoker [facility] Work Phone: Start: 10-29-2021 End: 10-26-2024 Tobacco smoking status Ex-smoker (finding) [facility] CV Ej Comment on above: quit 30 years ago Start: 07-12-2022 End: 04-23-2023 Tobacco smoking status NHIS Unknown if ever smoked [facility] Start: 11-27-2019 None [facility] Start: 11-27-2019 With Family [facility] Start: 05-04-2019 Non-smoker [facility] History of tobacco use Current smoker [facility] History of tobacco use Cigarette Smoker [facility] Start: 03-05-2012 Tobacco use and exposure Former smokeless tobacco user [facility] End: 12-04-1998 History of tobacco use User of smokeless tobacco [facility] Start: 07-09-2012 Alcohol intake Not Asked [facility] Start: 09-08-2023 Area Deprivation Index [facility] National Score (1-100), lower number is lower risk 67 [facility] Start: 1965 Sex Assigned At Not on file [facility] Sexual Orientation [facility] ospital [facility] Start: 06-02-2019 Sex Female (finding) [facility] NEGATED: Highlighted row Denies Alcohol Denies Alcohol [facility] Work Phone: NEGATED: Highlighted row [facility] Medical Equipment Procedure Code Equipment Code Equipment Origin al Text Equipment Identifier Dates Total cholecystectomy with exploration of common bile duct CLIP,HEMOLOCK MED WECK FDA Start: 05-05-2019 Total cholecystectomy with exploration of common bile duct CLIP,HEMOLOCK MED WECK FDA Start: 05-05-2019 Total cholecystectomy with exploration of common bile duct CLIP,HEMOLOCK MED WECK FDA Start: 05-05-2019 Total cholecystectomy with exploration of common bile duct CLIP,HEMOLOCK MED WECK FDA Start: 05-05-2019 Total cholecystectomy with exploration of common bile duct CLIP,HEMOLOCK MED WECK FDA Start: 05-05-2019 Total cholecystectomy with exploration of common bile duct CLIP,HEMOLOCK MED WECK FDA Start: 05-05-2019 Total cholecystectomy with exploration of common bile duct CLIP,HEMOLOCK MED WECK FDA Start: 05-05-2019 Total cholecystectomy with exploration of common bile duct CLIP,HEMOLOCK MED WECK FDA Start: 05-05-2019 Total cholecystectomy with exploration of common bile duct CLIP,HEMOLOCK MED WECK FDA Start: 05-05-2019 Total cholecystectomy with exploration of common bile duct CLIP,HEMOLOCK VISHNU WECK FDA Start: 05-05-2019 Creation, AV fistula, using [...] Creation, AV fistula Ligation cl ip, metallic [id number] FDA Start: 04-27-2023 Creation, AV fistula Ligation cl ip, metallic ()[id number] FDA Start: 04-27-2023 Creation, AV fistula Ligation cl ip, metallic ()[id number] FDA Start: 04-27-[address] Strips Start: 05-23-2020 Lancets Start: 05-23-2020 See Instructions , 1 bottle of 100 ---Test 4times/day--Pt has accucheck guide dx E11.9 Pt insulin dependent., # 1 EA, 11 Refill(s), Pharmacy: [facility], 160, cm, 05/10/20 8:54:00 EST, Height, 98.6, kg, 05/10/20 8:54:00 EST, Dosing Weight Start: 05-23-2020 See Instructions , qs 1 month supply--test four times daily--has accucheck guide dx E11.9, insulin dependent, # 1 EA, 11 Refill(s), Pharmacy: [facility], 160, cm, 05/10/20 8:54:00 EST, Height, 98.6, kg, 05/10/20 8:54:00 EST, Dosing Weight Start: 05-23-2020 See Instructions , 1 bottle of 100 ---Test 4times/day--Pt has accucheck guide dx E11.9 Pt insulin dependent., # 1 EA, 11 Refill(s), Pharmacy: [facility], 160, cm, 05/10/20 8:54:00 EST, Height, 98.6, kg, 05/10/20 8:54:00 EST, Dosing Weight Start: 05-23-2020 See Instructions , qs 1 month supply--test four times daily--has accucheck guide dx E11.9, insulin dependent, # 1 EA, 11 Refill(s), Pharmacy: [facility], 160, cm, 05/10/20 8:54:00 EST, Height, 98.6, kg, 05/10/20 8:54:00 EST, Dosing Weight Start: 05-23-[address] Strips Start: 05-23-2020 Lancets Start: 05-23-2020 See Instructions , 1 bottle of 100 ---Test 4times/day--Pt has accucheck guide dx E11.9 Pt insulin dependent., # 1 EA, 11 Refill(s), Pharmacy: [facility], 160, cm, 05/10/20 8:54:00 EST, Height, 98.6, kg, 05/10/20 8:54:00 EST, Dosing Weight Start: 05-23-2020 See Instructions , qs 1 month supply--test four times daily--has accucheck guide dx E11.9, insulin dependent, # 1 EA, 11 Refill(s), Pharmacy: [facility], 160, cm, 05/10/20 8:54:00 EST, Height, 98.6, kg, 05/10/20 8:54:00 EST, Dosing Weight Start: 05-23-2020 See Instructions , 1 bottle of 100 ---Test 4times/day--Pt has accucheck guide dx E11.9 Pt insulin dependent., # 1 EA, 11 Refill(s), Pharmacy: [facility], 160, cm, 05/10/20 8:54:00 EST, Height, 98.6, kg, 05/10/20 8:54:00 EST, Dosing Weight Start: 05-23-2020 See Instructions , qs 1 month supply--test four times daily--has accucheck guide dx E11.9, insulin dependent, # 1 EA, 11 Refill(s), Pharmacy: [facility], 160, cm, 05/10/20 8:54:00 EST, Height, 98.6, kg, 05/10/20 8:54:00 EST, Dosing Weight Start: 05-23-2020 See Instructions , 1 bottle of 100 ---Test 4times/day--Pt has accucheck guide dx E11.9 Pt insulin dependent., # 1 EA, 11 Refill(s), Pharmacy: [facility], 160, cm, 05/10/20 8:54:00 EST, Height, 98.6, kg, 05/10/20 8:54:00 EST, Dosing Weight Start: 05-23-2020 See Instructions , qs 1 month supply--test four times daily--has accucheck guide dx E11.9, insulin dependent, # 1 EA, 11 Refill(s), Pharmacy: [facility], 160, cm, 05/10/20 8:54:00 EST, Height, 98.6, kg, 05/10/20 8:54:00 EST, Dosing Weight Start: 05-23-2020 See Instructions , 1 bottle of 100 ---Test 4times/day--Pt has accucheck guide dx E11.9 Pt insulin dependent., # 1 EA, 11 Refill(s), Pharmacy: [facility], 160, cm, 05/10/20 8:54:00 EST, Height, 98.6, kg, 05/10/20 8:54:00 EST, Dosing Weight Start: 05-23-2020 See Instructions , qs 1 month supply--test four times daily--has accucheck guide dx E11.9, insulin dependent, # 1 EA, 11 Refill(s), Pharmacy: [facility], 160, cm, 05/10/20 8:54:00 EST, Height, 98.6, kg, 05/10/20 8:54:00 EST, Dosing Weight Start: 05-23-2020 See Instructions , 1 bottle of 100 ---Test 4times/day--Pt has accucheck guide dx E11.9 Pt insulin dependent., # 1 EA, 11 Refill(s), Pharmacy: [facility], 160, cm, 05/10/20 8:54:00 EST, Height, 98.6, kg, 05/10/20 8:54:00 EST, Dosing Weight Start: 05-23-2020 See Instructions , qs 1 month supply--test four times daily--has accucheck guide dx E11.9, insulin dependent, # 1 EA, 11 Refill(s), Pharmacy: [facility], 160, cm, 05/10/20 8:54:00 EST, Height, 98.6, kg, 05/10/20 8:54:00 EST, Dosing Weight Start: 05-23-2020 See Instructions , 1 bottle of 100 ---Test 4times/day--Pt has accucheck guide dx E11.9 Pt insulin dependent., # 1 EA, 11 Refill(s), Pharmacy: [place] [facility], 160, cm, 05/10/20 8:54:00 EST, Height, 98.6, kg, 05/10/20 8:54:00 EST, Dosing Weight Start: 05-23-2020 See Instructions , qs 1 month supply--test four times daily--has accucheck guide dx E11.9, insulin dependent, # 1 EA, 11 Refill(s), Pharmacy: [facility], 160, cm, 05/10/20 8:54:00 EST, Height, 98.6, kg, 05/10/20 8:54:00 EST, Dosing Weight Start: 05-23-2020 See Instructions , 1 bottle of 100 ---Test 4times/day--Pt has accucheck guide dx E11.9 Pt insulin dependent., # 1 EA, 11 Refill(s), Pharmacy: [place] [facility], 160, cm, 05/10/20 8:54:00 EST, Height, 98.6, kg, 05/10/20 8:54:00 EST, Dosing Weight Start: 05-23-2020 See Instructions , qs 1 month supply--test four times daily--has accucheck guide dx E11.9, insulin dependent, # 1 EA, 11 Refill(s), Pharmacy: [facility], 160, cm, 05/10/20 8:54:00 EST, Height, 98.6, kg, 05/10/20 8:54:00 EST, Dosing Weight Start: 05-23-2020 See Instructions , 1 bottle of 100 ---Test 4times/day--Pt has accucheck guide dx E11.9 Pt insulin dependent., # 1 EA, 11 Refill(s), Pharmacy: [facility], 160, cm, 05/10/20 8:54:00 EST, Height, 98.6, kg, 05/10/20 8:54:00 EST, Dosing Weight Start: 05-23-2020 See Instructions , qs 1 month supply--test four times daily--has accucheck guide dx E11.9, insulin dependent, # 1 EA, 11 Refill(s), Pharmacy: [facility], 160, cm, 05/10/20 8:54:00 EST, Height, 98.6, kg, 05/10/20 8:54:00 EST, Dosing Weight Start: 05-23-2020 See Instructions , 1 bottle of 100 ---Test 4times/day--Pt has accucheck guide dx E11.9 Pt insulin dependent., # 1 EA, 11 Refill(s), Pharmacy: [facility], 160, cm, 05/10/20 8:54:00 EST, Height, 98.6, kg, 05/10/20 8:54:00 EST, Dosing Weight Start: 05-23-2020 See Instructions , qs 1 month supply--test four times daily--has accucheck guide dx E11.9, insulin dependent, # 1 EA, 11 Refill(s), Pharmacy: [facility], 160, cm, 05/10/20 8:54:00 EST, Height, 98.6, kg, 05/10/20 8:54:00 EST, Dosing Weight Start: 05-23-2020 See Instructions , 1 bottle of 100 ---Test 4times/day--Pt has accucheck guide dx E11.9 Pt insulin dependent., # 1 EA, 11 Refill(s), Pharmacy: [facility], 160, cm, 05/10/20 8:54:00 EST, Height, 98.6, kg, 05/10/20 8:54:00 EST, Dosing Weight Start: 05-23-2020 See Instructions , qs 1 month supply--test four times daily--has accucheck guide dx E11.9, insulin dependent, # 1 EA, 11 Refill(s), Pharmacy: [facility], 160, cm, 05/10/20 8:54:00 EST, Height, 98.6, kg, 05/10/20 8:54:00 EST, Dosing Weight Start: 05-23-2020 See Instructions , 1 bottle of 100 ---Test 4times/day--Pt has accucheck guide dx E11.9 Pt insulin dependent., # 1 EA, 11 Refill(s), Pharmacy: [facility], 160, cm, 05/10/20 8:54:00 EST, Height, 98.6, kg, 05/10/20 8:54:00 EST, Dosing Weight Start: 05-23-2020 See Instructions , qs 1 month supply--test four times daily--has accucheck guide dx E11.9, insulin dependent, # 1 EA, 11 Refill(s), Pharmacy: [facility], 160, cm, 05/10/20 8:54:00 EST, Height, 98.6, kg, 05/10/20 8:54:00 EST, Dosing Weight Start: 05-23-2020 See Instructions , 1 bottle of 100 ---Test 4times/day--Pt has accucheck guide dx E11.9 Pt insulin dependent., # 1 EA, 11 Refill(s), Pharmacy: [facility] [address], 159, cm, 01/21/22 15:18:00 EDT, Height, 97.1, kg, 01/21/22 15:18:00 EDT, D... Start: 01-31-2022 See Instructions , qs 1 month supply--One touch delica plus, # 1 EA, 11 Refill(s), Pharmacy: [facility] [address], 159, cm, 01/21/22 15:18:00 EDT, Height, 97.1 Start: 02-03-2022 See Instructions , qs 1 month supply--test four times daily--has accucheck guide dx E11.9, insulin dependent, # 1 EA, 11 Refill(s), Pharmacy: [facility], 160, cm, 05/10/20 8:54:00 EST, Height, 98.6, kg, 05/10/20 8:54:00 EST, Dosing Weight Start: 05-23-2020 See Instructions , qs 1 month supply, # 1 EA, 11 Refill(s), Pharmacy: [facility] [address], 159, cm, 01/21/22 15:18:00 EDT, Height, 97.1 Start: 02-03-2022 See Instructions , 1 bottle of 100 ---Test 4times/day--Pt has accucheck guide dx E11.9 Pt insulin dependent., # 1 EA, 11 Refill(s), Pharmacy: [facility] [address], 159, cm, 01/21/22 15:18:00 EDT, Height, 97.1, kg, 01/21/22 15:18:00 EDT, D... Start: 01-31-2022 See Instructions , qs 1 month supply--One touch delica plus, # 1 EA, 11 Refill(s), Pharmacy: [facility] [address], 159, cm, 01/21/22 15:18:00 EDT, Height, 97.1 Start: 02-03-2022 See Instructions , qs 1 month supply--test four times daily--has accucheck guide dx E11.9, insulin dependent, # 1 EA, 11 Refill(s), Pharmacy: [facility], 160, cm, 05/10/20 8:54:00 EST, Height, 98.6, kg, 05/10/20 8:54:00 EST, Dosing Weight Start: 05-23-2020 See Instructions , qs 1 month supply, # 1 EA, 11 Refill(s), Pharmacy: [facility] [address], 159, cm, 01/21/22 15:18:00 EDT, Height, 97.1 Start: 02-03-2022 See Instructions , 1 bottle of 100 ---Test 4times/day--Pt has accucheck guide dx E11.9 Pt insulin dependent., # 1 EA, 11 Refill(s), Pharmacy: [facility] [address], 159, cm, 01/21/22 15:18:00 EDT, Height, 97.1, kg, 01/21/22 15:18:00 EDT, D... Start: 01-31-2022 See Instructions , qs 1 month supply--One touch delica plus, # 1 EA, 11 Refill(s), Pharmacy: [facility] [address], 159, cm, 01/21/22 15:18:00 EDT, Height, 97.1 Start: 02-03-2022 See Instructions , qs 1 month supply--test four times daily--has accucheck guide dx E11.9, insulin dependent, # 1 EA, 11 Refill(s), Pharmacy: [facility], 160, cm, 05/10/20 8:54:00 EST, Height, 98.6, kg, 05/10/20 8:54:00 EST, Dosing Weight Start: 05-23-2020 See Instructions , qs 1 month supply, # 1 EA, 11 Refill(s), Pharmacy: [facility] [address], 159, cm, 01/21/22 15:18:00 EDT, Height, 97.1 Start: 02-03-2022 See Instructions , BD UF 8mm 31 G (short) qs 1 month supply. In absence of PCP, # 1 EA, 0 Refill(s), Pharmacy: [facility] [address], 160, cm, 05/28/22 14:54:00 EST, Height, 98.7 Start: 07-02-2022 See Instructions , 1 bottle of 100 ---Test 4times/day--Pt has accucheck guide dx E11.9 Pt insulin dependent., # 1 EA, 11 Refill(s), Pharmacy: [facility] [address], 159, cm, 01/21/22 15:18:00 EDT, Height, 97.1, kg, 01/21/22 15:18:00 EDT, D... Start: 01-31-2022 See Instructions , qs 1 month supply--One touch delica plus, # 1 EA, 11 Refill(s), Pharmacy: [facility] [address], 159, cm, 01/21/22 15:18:00 EDT, Height, 97.1 Start: 02-03-2022 See Instructions , qs 1 month supply--test four times daily--has accucheck guide dx E11.9, insulin dependent, # 1 EA, 11 Refill(s), Pharmacy: [facility], 160, cm, 05/10/20 8:54:00 EST, Height, 98.6, kg, 05/10/20 8:54:00 EST, Dosing Weight Start: 05-23-2020 See Instructions , qs 1 month supply, # 1 EA, 11 Refill(s), Pharmacy: [facility] [address], 159, cm, 01/21/22 15:18:00 EDT, Height, 97.1 Start: 02-03-2022 See Instructions , BD UF 8mm 31 G (short) qs 1 month supply. In absence of PCP, # 1 EA, 0 Refill(s), Pharmacy: [facility] [place] [facility] [address], 160, cm, 05/28/22 14:54:00 EST, Height, 98.7 Start: 07-02-2022 See Instructions , 1 bottle of 100 ---Test 4times/day--Pt has accucheck guide dx E11.9 Pt insulin dependent., # 1 EA, 11 Refill(s), Pharmacy: [facility] [place] - [address], 159, cm, 01/21/22 15:18:00 EDT, Height, 97.1, kg, 01/21/22 15:18:00 EDT, D... Start: 01-31-2022 See Instructions , qs 1 month supply--One touch delica plus, # 1 EA, 11 Refill(s), Pharmacy: [facility] [place] - [address], 159, cm, 01/21/22 15:18:00 EDT, Height, 97.1 Start: 02-03-2022 See Instructions , qs 1 month supply--test four times daily--has accucheck guide dx E11.9, insulin dependent, # 1 EA, 11 Refill(s), Pharmacy: [facility], 160, cm, 05/10/20 8:54:00 EST, Height, 98.6, kg, 05/10/20 8:54:00 EST, Dosing Weight Start: 05-23-2020 See Instructions , qs 1 month supply, # 1 EA, 11 Refill(s), Pharmacy: [facility] [address], 159, cm, 01/21/22 15:18:00 EDT, Height, 97.1 Start: 02-03-2022 See Instructions , BD UF 8mm 31 G (short) qs 1 month supply. In absence of PCP, # 1 EA, 0 Refill(s), Pharmacy: [facility] [address], 160, cm, 05/28/22 14:54:00 EST, Height, 98.7 Start: 07-02-2022 See Instructions , 1 bottle of 100 ---Test 4times/day--Pt has accucheck guide dx E11.9 Pt insulin dependent., # 1 EA, 11 Refill(s), Pharmacy: [facility] [address], 159, cm, 01/21/22 15:18:00 EDT, Height, 97.1, kg, 01/21/22 15:18:00 EDT, D... Start: 01-31-2022 See Instructions , qs 1 month supply--One touch delica plus, # 1 EA, 11 Refill(s), Pharmacy: [facility] [address], 159, cm, 01/21/22 15:18:00 EDT, Height, 97.1 Start: 02-03-2022 See Instructions , qs 1 month supply--test four times daily--has accucheck guide dx E11.9, insulin dependent, # 1 EA, 11 Refill(s), Pharmacy: [facility], 160, cm, 05/10/20 8:54:00 EST, Height, 98.6, kg, 05/10/20 8:54:00 EST, Dosing Weight Start: 05-23-2020 See Instructions , qs 1 month supply, # 1 EA, 11 Refill(s), Pharmacy: [facility] [address], 159, cm, 01/21/22 15:18:00 EDT, Height, 97.1 Start: 02-03-2022 See Instructions , BD UF 8mm 31 G (short) qs 1 month supply. In absence of PCP, # 1 EA, 0 Refill(s), Pharmacy: [facility] [address], 160, cm, 05/28/22 14:54:00 EST, Height, 98.7 Start: 07-02-2022 See Instructions , 1 bottle of 100. Onetouch Verio. Testing QID. dx: E10.9 Sent in absence of PCP, # 1 EA, 0 Refill(s), Pharmacy: [place] [address], 157.5, cm, 10/28/22 14:52:00 EDT, Height, 99.9, kg, 10/28/22 14:52:00 EDT, Dosing Weight Start: 11-07-2022 See Instructions , 1 bottle of 100. Onetouch Verio. Testing QID. dx: E10.9 Sent in absence of PCP, # 1 EA, 0 Refill(s), Pharmacy: [place] [address], 157.5, cm, 10/28/22 14:52:00 EDT, Height, 99.9, kg, 10/28/22 14:52:00 EDT, Dosing Weight Start: 11-07-2022 See Instructions , 1 bottle of 100. Onetouch Verio. Testing QID. dx: E10.9, # 1 EA, 3 Refill(s), Pharmacy: [place] [address], 154.9, cm, 11/18/22 8:18:00 EDT, Height, 101, kg, 11/18/22 8:18:00 EDT, Dosing Weight Start: 12-09-2022 See Instructions , qs 1 month supply. one touch lancets., # 1 EA, 3 Refill(s), Pharmacy: [facility] [id number], 154.9, cm, 11/18/22 8:18:00 EDT, Height, 101, kg, 11/18/22 8:18:00 EDT, Dosing Weight Start: 12-09-2022 ONETOUCH DELICA PLUS LANCETS EXTRA FINE 33G MISC, 0 Refill(s), 101 Start: 12-05-2022 See Instructions , qs for 1 month supply. Sent in absence of PCP. 31 G x 8 mm 5/16" use as diected, # 1 EA, 0 Refill(s), Pharmacy: [facility] [id number], 154.9, cm, 11/18/22 8:18:00 EDT, Height, 101, kg, 11/18/22 8:18:00 EDT, Dosing Weight Start: 12-18-2022 See Instructions , 1 bottle of 100. Onetouch Verio. Testing QID. dx: E10.9, # 100 EA, 0 Refill(s), Pharmacy: [facility] [id number], 62, cm, 03/10/23 16:45:00 EST, Height, 103.4, kg, 03/10/23 16:37:00 EST, Dosing Weight Start: 04-16-2023 See Instructions , qs 1 month supply. one touch lancets., # 100 EA, 0 Refill(s), Pharmacy: [facility] [id number], 62, cm, 03/10/23 16:45:00 EST, Height, 103.4, kg, 03/10/23 16:37:00 EST, Dosing Weight Start: 04-16-2023 ONETOUCH DELICA PLUS LANCETS EXTRA FINE 33G MISC, 0 Refill(s), 101 Start: 12-05-2022 See Instructions , qs for 1 month supply. Sent in absence of PCP. 31 G x 8 mm 08/12" use as diected, # 1 EA, 0 Refill(s), Pharmacy: [facility] [id number], 154.9, cm, 11/18/22 8:18:00 EDT, Height, 101, kg, 11/18/22 8:18:00 EDT, Dosing Weight Start: 12-18-2022 See Instructions , 1 bottle of 100. Onetouch Verio. Testing QID. dx: E10.9, # 100 EA, 11 Refill(s), Pharmacy: [facility] [id number], 157.5, cm, 04/29/23 14:30:00 EST, Height, 104.8, kg, 04/29/23 14:30:00 EST, Dosing Weight Start: 05-11-2023 See Instructions , qs 1 month supply. one touch lancets. Pt tests 4 times a day, # 100 EA, 11 Refill(s), Pharmacy: [facility] [id number], 157.5, cm, 04/29/23 14:30:00 EST, Height, 104.8, kg, 04/29/23 14:30:00 EST, Dosing Weight Start: 05-11-2023 ONETOUCH DELICA PLUS LANCETS EXTRA FINE 33G MISC, 0 Refill(s), 101 Start: 12-05-2022 See Instructions , qs for 1 month supply. Sent in absence of PCP. 31 G x 8 mm 5/16" use as diected, # 1 EA, 0 Refill(s), Pharmacy: [facility] [id number], 154.9, cm, 11/18/22 8:18:00 EDT, Height, 101, kg, 11/18/22 8:18:00 EDT, Dosing Weight Start: 12-18-2022 See Instructions , 1 bottle of 100. Onetouch Verio. Testing QID. dx: E10.9, # 100 EA, 11 Refill(s), Pharmacy: [facility] [id number], 157.5, cm, 04/29/23 14:30:00 EST, Height, 104.8, kg, 04/29/23 14:30:00 EST, Dosing Weight Start: 05-11-2023 See Instructions , qs 1 month supply. one touch lancets. Pt tests 4 times a day, # 100 EA, 11 Refill(s), Pharmacy: [facility] [id number], 157.5, cm, 04/29/23 14:30:00 EST, Height, 104.8, kg, 04/29/23 14:30:00 EST, Dosing Weight Start: 05-11-2023 ONETOUCH DELICA PLUS LANCETS EXTRA FINE 33G MISC, 0 Refill(s), 101 Start: 12-05-2022 See Instructions , qs for 1 month supply. Sent in absence of PCP. 31 G x 8 mm 5/16" use as diected, # 1 EA, 0 Refill(s), Pharmacy: [facility] [id number], 154.9, cm, 11/18/22 8:18:00 EDT, Height, 101, kg, 11/18/22 8:18:00 EDT, Dosing Weight Start: 12-18-2022 FREESTYLE LANCET S lancets [id number] Start: 12-24-2011 FREESTYLE LITE STRIPS test strip [id number] Start: 12-24-2011 See Instructions , 1 bottle of 100. Onetouch Verio. Testing QID. dx: E10.9, # 100 EA, 11 Refill(s), Pharmacy: [facility] [id number], 159, cm, 06/03/23 13:51:00 EST, Height, 14.54, kg, 06/08/23 16:20:00 EDT, Dosing Weight Start: 09-29-2023 See Instructions , qs 1 month supply. one touch lancets. Pt tests 4 times a day, # 100 EA, 11 Refill(s), Pharmacy: [facility] [id number], 159, cm, 06/03/23 13:51:00 EST, Height, 14.54, kg, 06/08/23 16:20:00 EDT, Dosing Weight Start: 09-29-2023 ONETOUCH DELICA PLUS LANCETS EXTRA FINE 33G MISC, 0 Refill(s), 101 Start: 12-05-2022 See Instructions , qs for 1 month supply. Sent in absence of PCP. 31 G x 8 mm 08/12" use as diected, # 1 EA, 0 Refill(s), Pharmacy: [facility] [id number], 154.9, cm, 11/18/22 8:18:00 EDT, Height, 101, kg, 11/18/22 8:18:00 EDT, Dosing Weight Start: 12-18-2022 See Instructions , 1 bottle of 100. Onetouch Verio. Testing QID. dx: E10.9, # 100 EA, 11 Refill(s), Pharmacy: [facility] [id number], 159, cm, 06/03/23 13:51:00 EST, Height, 14.54, kg, 06/08/23 16:20:00 EDT, Dosing Weight Start: 09-29-2023 See Instructions , qs 1 month supply. one touch lancets. Pt tests 4 times a day, # 100 EA, 11 Refill(s), Pharmacy: [facility] [id number], 159, cm, 06/03/23 13:51:00 EST, Height, 14.54, kg, 06/08/23 16:20:00 EDT, Dosing Weight Start: 09-29-2023 ONETOUCH DELICA PLUS LANCETS EXTRA FINE 33G MISC, 0 Refill(s), 101 Start: 12-05-2022 See Instructions , qs for 1 month supply. Sent in absence of PCP. 31 G x 8 mm 516" use as diected, # 1 EA, 0 Refill(s), Pharmacy: [facility] [id number], 154.9, cm, 11/18/22 8:18:00 EDT, Height, 101, kg, 11/18/22 8:18:00 EDT, Dosing Weight Start: 12-18-2022 See Instructions , 1 bottle of 100. Onetouch Verio. Testing QID. dx: E10.9, # 100 EA, 11 Refill(s), Pharmacy: [facility] [id number], 159, cm, 06/03/23 13:51:00 EST, Height, 14.54, kg, 06/08/23 16:20:00 EDT, Dosing Weight Start: 09-29-2023 See Instructions , qs 1 month supply. one touch lancets. Pt tests 4 times a day, # 100 EA, 11 Refill(s), Pharmacy: [facility] [id number], 159, cm, 06/03/23 13:51:00 EST, Height, 14.54, kg, 06/08/23 16:20:00 EDT, Dosing Weight Start: 09-29-2023 ONETOUCH DELICA PLUS LANCETS EXTRA FINE 33G MISC, 0 Refill(s), 101 Start: 12-05-2022 See Instructions , qs for 1 month supply. Sent in absence of PCP. 31 G x 8 mm 516" use as diected, # 1 EA, 0 Refill(s), Pharmacy: [facility] [id number], 154.9, cm, 11/18/22 8:18:00 EDT, Height, 101, kg, 11/18/22 8:18:00 EDT, Dosing Weight Start: 12-18-2022 See Instructions , 1 bottle of 100. Onetouch Verio. Testing QID. dx: E10.9, # 100 EA, 11 Refill(s), Pharmacy: [facility] [id number], 159, cm, 06/03/23 13:51:00 EST, Height, 14.54, kg, 06/08/23 16:20:00 EDT, Dosing Weight Start: 09-29-2023 See Instructions , qs 1 month supply. one touch lancets. Pt tests 4 times a day, # 100 EA, 11 Refill(s), Pharmacy: [facility] [id number], 159, cm, 06/03/23 13:51:00 EST, Height, 14.54, kg, 06/08/23 16:20:00 EDT, Dosing Weight Start: 09-29-2023 ONETOUCH DELICA PLUS LANCETS EXTRA FINE 33G MISC, 0 Refill(s), 101 Start: 12-05-2022 See Instructions , qs for 1 month supply. 31 G x 8 mm 08/12" use as diecte, # 1 EA, 11 Refill(s), Pharmacy: [facility] [id number], 158, cm, 12/21/23 12:59:00 EDT, Height, 105.7, kg, 12/21/23 12:59:00 EDT, Dosing Weight Start: 01-04-2024 See Instructions , 1 bottle of 100. Onetouch Verio. Testing QID. dx: E10.9, # 100 EA, 11 Refill(s), Pharmacy: [facility] [id number], 159, cm, 06/03/23 13:51:00 EST, Height, 14.54, kg, 06/08/23 16:20:00 EDT, Dosing Weight Start: 09-29-2023 See Instructions , Freestyle Test Strips. Use to check blood sugar 4 times daily with insulin administrations. #1 box of 100 strips, # 1 EA, 11 Refill(s), Pharmacy: [facility] [id number], 158, cm, 02/10/24 8:25:00 EST, Height, 104.5, kg, 02/10/24 8:24:00 EST, Dosing Weight Start: 03-14-2024 See Instructions , qs 1 month supply. one touch lancets. Pt tests 4 times a day, # 100 EA, 11 Refill(s), Pharmacy: [facility] [id number], 159, cm, 06/03/23 13:51:00 EST, Height, 14.54, kg, 06/08/23 16:20:00 EDT, Dosing Weight Start: 09-29-2023 ONETOUCH DELICA PLUS LANCETS EXTRA FINE 33G MISC, 0 Refill(s), 101 Start: 12-05-2022 See Instructions , qs for 1 month supply. 31 G x 8 mm 08/12" use as diecte, # 1 EA, 11 Refill(s), Pharmacy: [facility] [id number], 158, cm, 12/21/23 12:59:00 EDT, Height, 105.7, kg, 12/21/23 12:59:00 EDT, Dosing Weight Start: 01-04-2024 See Instructions , 1 bottle of 100. Onetouch Verio. Testing QID. dx: E10.9, # 100 EA, 11 Refill(s), Pharmacy: [facility] [id number], 159, cm, 06/03/23 13:51:00 EST, Height, 14.54, kg, 06/08/23 16:20:00 EDT, Dosing Weight Start: 09-29-2023 See Instructions , Freestyle Test Strips. Use to check blood sugar 4 times daily with insulin administrations. #1 box of 100 strips, # 1 EA, 11 Refill(s), Pharmacy: [facility] [id number], 158, cm, 02/10/24 8:25:00 EST, Height, 104.5, kg, 02/10/24 8:24:00 EST, Dosing Weight Start: 03-14-2024 See Instructions , qs 1 month supply. one touch lancets. Pt tests 4 times a day, # 100 EA, 11 Refill(s), Pharmacy: [facility] [id number], 159, cm, 06/03/23 13:51:00 EST, Height, 14.54, kg, 06/08/23 16:20:00 EDT, Dosing Weight Start: 09-29-2023 ONETOUCH DELICA PLUS LANCETS EXTRA FINE 33G MISC, 0 Refill(s), 101 Start: 12-05-2022 See Instructions , qs for 1 month supply. 31 G x 8 mm 5/16" use as diecte, # 1 EA, 11 Refill(s), Pharmacy: [facility] [id number], 158, cm, 12/21/23 12:59:00 EDT, Height, 105.7, kg, 12/21/23 12:59:00 EDT, Dosing Weight Start: 01-04-2024 See Instructions , 1 bottle of 100. Onetouch Verio. Testing QID. dx: E10.9, # 100 EA, 11 Refill(s), Pharmacy: [facility] [id number], 159, cm, 06/03/23 13:51:00 EST, Height, 14.54, kg, 06/08/23 16:20:00 EDT, Dosing Weight Start: 09-29-2023 See Instructions , Freestyle Test Strips. Use to check blood sugar 4 times daily with insulin administrations. #1 box of 100 strips, # 1 EA, 11 Refill(s), Pharmacy: [facility] [id number], 158, cm, 02/10/24 8:25:00 EST, Height, 104.5, kg, 02/10/24 8:24:00 EST, Dosing Weight Start: 03-14-2024 See Instructions , qs 1 month supply. one touch lancets. Pt tests 4 times a day, # 100 EA, 11 Refill(s), Pharmacy: [facility] [id number], 159, cm, 06/03/23 13:51:00 EST, Height, 14.54, kg, 06/08/23 16:20:00 EDT, Dosing Weight Start: 09-29-2023 ONETOUCH DELICA PLUS LANCETS EXTRA FINE 33G MISC, 0 Refill(s), 101 Start: 12-05-2022 See Instructions , qs for 1 month supply. 31 G x 8 mm 5/16" use as diecte, # 1 EA, 11 Refill(s), Pharmacy: [facility] [id number], 158, cm, 12/21/23 12:59:00 EDT, Height, 105.7, kg, 12/21/23 12:59:00 EDT, Dosing Weight Start: 01-04-2024 Blood Sugar Diagnostic (Onetouch Verio Test Strips) strip Start: 07-31-2024 Lancets (Onetouc h Delica Plus Lancet) 33 gauge misc Start: 07-31-2024 Blood Sugar Diagnostic (Onetouch Verio Test Strips) strip Start: 07-31-2024 Lancets (Onetouc h Delica Plus Lancet) 33 gauge misc Start: 07-31-2024 See Instructions , True Metrix Test Strips Use one test strip to check blood sugar once daily as directed. Dispense insurance preferred test strips. 1 box of 100, # 1 EA, 6 Refill(s), Pharmacy: [facility] [id number], 155, cm, 08/16/24 11:12:00 EDT, Height, 111, kg, 08/16/24 11:12:00 EDT, Dosing Weight Start: 10-03-2024 See Instructions , Freestyle Test Strips. Use to check blood sugar 4 times daily with insulin administrations. #1 box of 100 strips, # 1 EA, 11 Refill(s), Pharmacy: [facility] [id number], 158, cm, 02/10/24 8:25:00 EST, Height, 104.5, kg, 02/10/24 8:24:00 EST, Dosing Weight Start: 03-14-2024 See Instructions , True Metrix Lancets. Use one lancet to ponce finger for blood sugar testing once daily as directed. Dispense insurance preferred lancets, # 1 EA, 6 Refill(s), Pharmacy: [facility] [id number], 155, cm, 08/16/24 11:12:00 EDT, Height, 111, kg, 08/16/24 11:12:00 EDT, Dosing Weight Start: 10-03-2024 ONETOUCH DELICA PLUS LANCETS EXTRA FINE 33G MISC, 0 Refill(s), 101 Start: 12-05-2022 See Instructions , qs for 1 month supply. 31 G x 8 mm 08/12" use as diecte, # 1 EA, 11 Refill(s), Pharmacy: [facility] [id number], 158, cm, 12/21/23 12:59:00 EDT, Height, 105.7, kg, 12/21/23 12:59:00 EDT, Dosing Weight Start: 01-04-2024 See Instructions , True Metrix Test Strips Use one test strip to check blood sugar once daily as directed. Dispense insurance preferred test strips. 1 box of 100, # 1 EA, 6 Refill(s), Pharmacy: [facility] [id number], 155, cm, 08/16/24 11:12:00 EDT, Height, 111, kg, 08/16/24 11:12:00 EDT, Dosing Weight Start: 10-03-2024 See Instructions , Freestyle Test Strips. Use to check blood sugar 4 times daily with insulin administrations. #1 box of 100 strips, # 1 EA, 11 Refill(s), Pharmacy: [facility] [id number], 158, cm, 02/10/24 8:25:00 EST, Height, 104.5, kg, 02/10/24 8:24:00 EST, Dosing Weight Start: 03-14-2024 See Instructions , True Metrix Lancets. Use one lancet to ponce finger for blood sugar testing once daily as directed. [facility], # 1 EA, 6 Refill(s), Pharmacy: [facility] [id number], 155, cm, 08/16/24 11:12:00 EDT, Height, 111, kg, 08/16/24 11:12:00 EDT, Dosing Weight Start: 10-03-2024 ONETOUCH DELICA PLUS LANCETS EXTRA FINE 33G MISC, 0 Refill(s), 101 Start: 12-05-2022 See Instructions , qs for 1 month supply. 31 G x 8 mm 08/12" use as diecte, # 1 EA, 11 Refill(s), Pharmacy: [facility] [id number], 158, cm, 12/21/23 12:59:00 EDT, Height, 105.7, kg, 12/21/23 12:59:00 EDT, Dosing Weight Start: 01-04-2024 See Instructions , True Metrix Test Strips Use one test strip to check blood sugar once daily as directed. Dispense insurance preferred test strips. 1 box of 100, # 1 EA, 6 Refill(s), Pharmacy: [facility] [id number], 155, cm, 08/16/24 11:12:00 EDT, Height, 111, kg, 08/16/24 11:12:00 EDT, Dosing Weight Start: 10-03-2024 See Instructions , Freestyle Test Strips. Use to check blood sugar 4 times daily with insulin administrations. #1 box of 100 strips, # 1 EA, 11 Refill(s), Pharmacy: [facility] [id number], 158, cm, 02/10/24 8:25:00 EST, Height, 104.5, kg, 02/10/24 8:24:00 EST, Dosing Weight Start: 03-14-2024 See Instructions , True Metrix Lancets. Use one lancet to ponce finger for blood sugar testing once daily as directed. Dispense insurance preferred lancets, # 1 EA, 6 Refill(s), Pharmacy: [facility] [id number], 155, cm, 08/16/24 11:12:00 EDT, Height, 111, kg, 08/16/24 11:12:00 EDT, Dosing Weight Start: 10-03-2024 ONETOUCH DELICA PLUS LANCETS EXTRA FINE 33G MISC, 0 Refill(s), 101 Start: 12-05-2022 See Instructions , qs for 1 month supply. 31 G x 8 mm 5/16" use as diecte, # 1 EA, 11 Refill(s), Pharmacy: [facility] [id number], 158, cm, 12/21/23 12:59:00 EDT, Height, 105.7, kg, 12/21/23 12:59:00 EDT, Dosing Weight Start: 01-04-2024 See Instructions , qs for 1 month supply. 31 G x 8 mm 5/16" use as diecte, # 1 EA, 11 Refill(s), Pharmacy: [facility] [id number], 158, cm, 12/21/23 12:59:00 EDT, Height, 105.7, kg, 12/21/23 12:59:00 EDT, Dosing Weight Start: 01-04-2024 See Instructions , qs for 1 month supply. 31 G x 8 mm 5/16" use as diecte, # 1 EA, 11 Refill(s), Pharmacy: [facility] [id number], 158, cm, 12/21/23 12:59:00 EDT, Height, 105.7, kg, 12/21/23 12:59:00 EDT, Dosing Weight Start: 01-04-2024 See Instructions , qs for 1 month supply. 31 G x 8 mm 5/16" use as diecte, # 1 EA, 11 Refill(s), Pharmacy: [facility] [id number], 158, cm, 12/21/23 12:59:00 EDT, Height, 105.7, kg, 12/21/23 12:59:00 EDT, Dosing Weight Start: 01-04-2024 See Instructions , qs for 1 month supply. 31 G x 8 mm 5/16" use as diecte, # 1 SONYA, 11 Refill(s), Pharmacy: [facility] [id number], 158, cm, 12/21/23 12:59:00 EDT, Height, 105.7, kg, 12/21/23 12:59:00 EDT, Dosing Weight Start: 01-04-2024 Goals Date Patient Goal Desired Activity /State Functional Status Date Assessment Result Facility 10-11-2024 Functional status Ambulates [facility] Work Phone: 08-02-2024 Functional status Dangle Feet [facility] Work Phone: 07-31-2024 Functional Status Assistive Device None A [facility] 07-31-2024 Functional Status Ambulation Amb ulation in [place], Ambulation in Room [facility] 07-30-2024 Functional Status Standard Safet y ID band on, Call device within reach, Bed in low position, Wheels locked, Bedside Cart Locked, Safety level maintained [facility] 11-18-2023 Functional Status Standard Safet y ID band on, Call device within reach, Bed in low position, Wheels locked, Upper/Half-Length side-rails up, Phone within reach, personal items within reach [facility] 10-11-2023 Functional Status Independent [facility] 10-11-2023 Functional Status ID band on, Call device within reach, Bed in low position, Wheels locked, Upper/Half-Length side-rails up, Visitor at bedside, Safety level maintained [facility] 11-18-2022 Functional Status Awake, Resting [facility] 11-18-2022 Functional Status confirmed [facility] 11-18-2022 Functional Status [facility] 11-10-2022 Functional Status ID band on, Call device within reach, Bed in low position, Wheels locked, Upper/Half-Length side-rails up, Phone within reach, Bedside Cart Locked, Safety level maintained [facility] 10-24-2022 Functional Status Door open, Room check performed [facility] 10-24-2022 Functional Status [facility] 10-24-2022 Functional Status [facility] 10-24-2022 Functional Status Single level home [facility] 10-24-2022 Functional Status Done [facility] 10-24-2022 Functional Status Sensory Deficits None [facility] 08-29-2022 Functional Status Independent [facility] 08-28-2022 Functional Status Awake [facility] 08-11-2022 Functional Status Room check performed [facility] 08-11-2022 Functional Status [facility] 08-11-2022 Functional Status [facility] 08-11-2022 Functional Status [facility] 08-11-2022 Functional Status [facility] 08-11-2022 Functional Status Maintained [facility] 07-23-2022 Functional status Activity Abili ty Standby Assist;With Assist of 1 [facility] Work Phone: 07-23-2022 Functional status Patient Activi ty Ambulates;Chair;Bathroom Privilege [facility] Work Phone: 07-15-2022 Functional status Chair [facility] Work Phone: 07-08-2022 Functional Status Resting [facility] 02-25-2022 Functional Status Ambulating in room, Up with assistance [facility] 02-25-2022 Functional Status Kelsey Mich[facility] 02-25-2022 Functional Status [facility] 02-25-2022 Functional Status Room located n ear nursing station, Room check performed [facility] 12-15-2021 Functional Status Room check performed [facility] 12-14-2021 Functional Status Kelsey [facility] 12-14-2021 [facility] Functional Status Living Situati on Lives with family [facility] 12-13-2021 Functional Status Standard Safet y ID band on, Call device within reach, Bed in low position, Wheels locked, Safety level maintained [facility] 12-13-2021 Functional [facility] 11-04-2021 Functional Status Independent [facility] Mental Status Date Assessment Result Facility 10-11-2024 Cognitive function Voice/Name [facility] Work Phone: 08-02-2024 Cognitive function Voice/Name [facility] Work Phone: 07-31-2024 Mental Status Orientation Foll ows simple commands [facility] 07-31-2024 Mental Status [facility] 07-30-2024 Mental Status Oriented x 4 [facility] 11-18-2023 Mental Status Orientation Not oriented to time [facility] 10-11-2023 Mental Status Orientation Oriented x 4 [facility] 10-11-2023 Mental Status [facility] 04-27-2023 Cognitive function Voice/Name [facility] Work Phone: 04-07-2023 Cognitive function Level Of Consciousness Awake [facility] Work Phone: 11-18-2022 Mental Status Oriented x 4 [facility] 11-10-2022 Mental Status Oriented x 4 [facility] 10-24-2022 Mental Status Orientation Orie nted x 4, Follows simple commands [facility] 10-24-2022 Mental Status [facility] 10-24-2022 Mental Status [facility] 08-29-2022 Mental Status Orientation Oriented x 4 [facility] 08-28-2022 Mental Status [facility] 08-11-2022 Mental Status Orientation Oriented x 4 [facility] 08-11-2022 Mental Status [facility] 08-11-2022 Mental Status [facility] 08-11-2022 Mental Status Orientation Asse ssment Oriented x 4 [facility] 07-23-2022 Cognitive function Voice/Name [facility] Work Phone: 07-15-2022 Cognitive function Voice/Name [facility] Work Phone: 07-15-2022 Cognitive function Cooperative [facility] Work Phone: 07-13-2022 Cognitive function Memory Description Int act [facility] Work Phone: 07-12-2022 Cognitive function Level Of Cons ciousness Awake;Alert;Appropriate;Follow s Commands [facility] Work Phone: 02-25-2022 Mental Status Orientation Oriented x 4 [facility] 02-25-2022 Mental Status [facility] 12-15-2021 Mental Status Oriented x 4, Forgetful [facility] 12-14-2021 Mental Status [facility] 12-13-2021 Mental Status [facility] 12-13-2021 Mental Status [facility] 12-13-2021 Mental Status Orientation Not oriented to place, Not oriented to time [facility] 12-13-2021 Mental Status [facility] 11-04-2021 Mental Status Orientation Oriented x 4 [facility] Clinical Notes 08-30-2021 to 01-02-2025 Note Date & Type Note Facility 01-02-2025 Hospital Discharg e instructions Patient Education 01/02/2025 14:17:58 Chronic Obstructive Pulmonary Disease Exacerbation, [id number] Chronic Obstructive Pulmonary Disease Exacerbation Chronic obstructive pulmonary disease (COPD) is a long-term (chronic) lung problem. In COPD, the flow of air from the lungs is limited. COPD exacerbations are times that breathing gets worse and you need more than your normal treatment. Without treatment, they can be life threatening. If they happen often, your lungs can become more damaged. If your COPD gets worse, your doctor may treat you with: Medicines. Oxygen. Different ways to clear your airway, such as using a mask. Follow these instructions at home: Medicines Take [id number] and prescription medicines only as told by your doctor. If you take an antibiotic or steroid medicine, do not stop taking the medicine even if you start to feel better. Keep up with shots (vaccinations) as told by your doctor. Be sure to get a yearly (annual) flu shot. Lifestyle Do not smoke. If you need help quitting, ask your doctor. Eat healthy foods. Exercise regularly. Get plenty of sleep. Avoid tobacco smoke and other things that can bother your lungs. Wash your hands often with soap and water. This will help keep you from getting an infection. If you cannot use soap and water, use hand plow and boring machine tender. During flu season, avoid areas that are crowded with people. General instructions Drink enough fluid to keep your pee (urine) clear or pale yellow. Do not do this if your doctor has told you not to. Use a cool mist machine (vaporizer). If you use oxygen or a machine that turns medicine into a mist (nebulizer), continue to use it as told. Follow all instructions for rehabilitation. These are steps you can take to make your body work better. Keep all follow-up visits as told by your doctor. This is important. Contact a doctor if: Your COPD symptoms get worse than normal. Get help right away if: You are short of breath and it gets worse. You have trouble talking. You have chest pain. You cough up blood. You have a fever. You keep throwing up (vomiting). You feel weak or you pass out (faint). You feel confused. You are not able to sleep because of your symptoms. You are not able to do daily activities. Summary COPD exacerbations are times that breathing gets worse and you need more treatment than normal. COPD exacerbations can be very serious and may cause your lungs to become more damaged. Do not smoke. If you need help quitting, ask your doctor. Stay up-to-date on your shots. Get a flu shot every year. This information is not intended to replace advice given to you by your health care provider. Make sure you discuss any questions you have with your health care provider. Document Released: 03/04/2012 Document Revised: 02/26/2018 Document Reviewed: 04/20/2017 [employer] Patient Education 2020 [employer]. Follow Up Care 12/31/2024 18:35:28 With:DENISSE SUTTON APRN-[facility] Address: [address] [facility] [place] [address]- [phone] When:1-2 days Comments:Please call the office to schedule your hospital follow up appointment . [facility] 01-02-2025 Nephrology Progress note Date of Service 01/02 Subjective Patient breathing much more comfortably. Says she is breathing close to her normal. Anticipating discharge.No nausea vomiting eating well. Objective Vitals and Measurements T: 36.2 C (Oral) TMIN: 36.1 C (Oral) TMAX: 36.7 C (Oral) HR: 70 RR: 16 BP: 151/72 SpO2: 97% Intake and Output Last 24 hours Intake Medication 0.96 Oral Intake 1310.00 Output Stool Count 2.00 Urine Count 7.00 Total Summary Total Intake 1310.96 Total Output 0.00 Fluid Balance 1310.96 Physical Exam Heart had a regular rhythm normal S1 and S2 lungs expiratory wheezes anteriorly abdomen had bowel sounds positive x 4 soft nontender extremities warm and dry with only trace pretibial edema bilaterally Weight Dosing Weight: 105 kg (01/01/25) Medications Medications (23) Active Scheduled: (17) albuterol - ipratropium 2.5 mg-0.5 mg/3 mL Inhal Daria UD 3 mL, Inhalation, TIDRT allopurinol 100 mg tablet 100 mg 1 tab(s), Oral, qDay aspirin 81 mg EC 81 mg 1 tab(s), Oral, qDay atorvastatin 80 mg tablet 80 mg 1 tab(s), Oral, qDay calcium acetate 667 mg Tab 1,334 mg 2 tab(s), Oral, TID calcium carbonate 500 mg Chewable 750 mg 1.5 tab(s), Chewed, BID carvedilol 3.125 mg tablet 3.125 mg 1 tab(s), Oral, BID cholecalciferol 50 mcg tablet (Vit D3 2000 unit(s)) 50 mcg 1 tab(s), Oral, Daily ezetimibe 10 mg tablet 10 mg 1 tab(s), Oral, qDay gabapentin 100 mg Capsule 100 mg 1 cap(s), Oral, BID heparin 5,000 units/mL (1 mL) vial 5,000 unit(s) 1 mL, Subcutaneous, q8h hydralazine 50 mg Tablet 100 mg 2 tab(s), Oral, BID insulin glargine 20 unit(s) 0.2 mL, Subcutaneous (INT), qDay insulin lispro 100 units/mL Soln (3 mL) 5 unit(s) 0.05 mL, Subcutaneous, TIDM insulin lispro 100 units/mL Soln (3 mL) Give 0-10 units/dose, Subcutaneous, TIDAC methylPREDNISolone succ 125mg (62.5mg/1mL) after dilution 60 mg 0.96 mL, IV Push, q8h rOPINIRole 0.25 mg tablet 0.25 mg 1 tab(s), Oral, BID Continuous: (0) PRN: (6) acetaminophen 325 mg Tablet 650 mg 2 tab(s), Oral, q6hWA albuterol 0.083% Soln UD (2.5mg/3 mL) 2.5 mg 3 mL, Inhalation, q2hRT dextrose 50% Solution Disp syringe 50 mL 25 gram(s) 50 mL, IV Push, AsDirected melatonin 3 mg tablet 3 mg 1 tab(s), Oral, qHS melatonin 3 mg tablet 3 mg 1 tab(s), Oral, qHS ondansetron 2 mg/ 1 mL 2 mL INJ 4 mg 2 mL, IV Push, q4h Lab Results 01/02 07:17 WBC: 11.8 H Hgb: 11.0 L Hct: 32.3 L Platelet: 157 Neutrophil %: 88.2 H Glucose Level: 262 H Sodium Level: 133 L Potassium Level: 5.1 H BUN: 45.0 H Creatinine Lvl (s): 7.09 H EKG No qualifying data available. Assessment/Plan Chronic hypoxic respiratory failure COPD exacerbation Leg pain Assessment plan 1. Shortness of breath likely COPD exacerbation breathing has improved with Solu-Medrol. No edema or JVD chest x-ray not consistent with fluid overload. 2. End-stage renal disease Thursday via right extremity AV fistula at [facility] in [place] with Dr. Sami Garcia. She will have dialysis tomorrow either as an inpatient or if she is outpatient to go to her regular treatment 3. Anemia she will get EPO with dialysis as she needs 4. Diabetes continue tight blood glucose control 5. Hypertension under good control continue current regimen Digitally Signed by COREY RAGLAND MD on 01/02/2025 02:45 PM [facility] 01-02-2025 Note Discharge Instructions Thank you for allowing [facility] to assist you with your healthcare needs. The following is important discharge information regarding your hospital visit. Your Care Team DENISSE SUTTON Your Diagnosis Chronic hypoxic respiratory failure COPD exacerbation Leg pain What to do next Scheduled Follow-Up Appointments Appointment Type When With Where Contact Information StatusPC OV Follow Up 01/16/2025 03:00 PM EDT DENISSE SUTTON [facility] Confirmed MEDS - Diabetic Individual Visit 02/20/2025 03:30 PM KEYSHAWN Vargas Diet Visits [phone] Confirmed PC OV 02/21/2025 03:30 PM EST DENISSE SUTTON [facility] Confirmed Follow Up Appointments Follow Up with DENISSE SUTTON When:Within 1-2 days Where:[address] [place], [place] [id number]- [phone] Additional Information: Please call the office to schedule your hospital follow up appointment . The Following Activity and Diet Have Been Ordered for You Discharge Activity - Ordered -- Resume your pre-hospitalization activity, 01/02/25 14:13:00 EDT Discharge Diet - Ordered -- Type of Diet: Regular, 01/02/25 14:13:00 EDT The Following Equipment Has Been Ordered [...] Much When Why Instructions Last Dose New predniSONE (prednisone 10mg tab (TAPER)) Taper 40-30-20-10 x 3 days each dose by mouth Once a day Duration: 12 Days Take with food/ meal Pickup at [facility] [id number] Unchanged acetaminophen (acetaminophen 325 mg oral tablet) 2 tab(s) by mouth Every 6 hours as needed for as needed for pain Unchanged allopurinol (allopurinol 100 mg oral tablet) 1 tab(s) by mouth Once a day Duration: 90 Days Unchanged aspirin (aspirin 81 mg oral delayed release tablet) 1 tab(s) by mouth Once a day Unchanged atorvastatin (atorvastatin 80 mg oral tablet) 1 tab(s) by mouth Once a day Duration: 90 Days Unchanged calcium acetate (calcium acetate 667 mg oral capsule) 2 cap by mouth Three (3) times a day with meals Unchanged calcium carbonate (Tums E-X 750 mg oral tablet, chewable) 1 tab(s) Chewed Two (2) times a day Scheduled in between meals Unchanged carvedilol (Coreg 3.125 mg oral tablet) 1 tab(s) by mouth Two (2) times a day Unchanged cholecalciferol (Vitamin D3 50 mcg (2000 intl units) oral capsule) 1 tab(s) by mouth Every day Unchanged DME (NeocutisStyle Navid 3+ Sensors) See instructions Place once sensor to the back of the upper arm every 15 days. Use reader or phone toby for daily blood sugar checks. 1 month supply. DXE11.65 Unchanged DME (Pen needles) See instructions qs for 1 month supply. 31 G x 8 mm " use as diecte Unchanged ezetimibe (Zetia 10 mg oral tablet) 1 tab(s) by mouth Once a day Unchanged gabapentin (gabapentin 100 mg oral capsule) 1 cap by mouth Two (2) times a day Leg pain Duration: 30 Days Unchanged hydrALAZINE (hydrALAZINE 100 mg oral tablet) 1 tab(s) by mouth Two (2) times a day Unchanged insulin aspart (Novolog) (NovoLOG FlexPen 100 units/ mL injectable solution) See instructions Inject 5 units SubQ with breakfast, 8 units with lunch, and 5 units with dinner. Do not give insulin if BG <80. Unchanged insulin glargine (Toujeo Max SoloStar 300 units/ mL subcutaneous solution) 20 unit(s) Subcutaneous Once a day Unchanged melatonin (melatonin 5 mg oral tablet) 1 tab(s) by mouth Daily at bedtime as needed for as needed for insomnia Unchanged multivitamin (Nephro-Todd oral tablet) 1 tab(s) by mouth Once a day Unchanged multivitamin (Potter Caps) 1 cap by mouth Once a day Unchanged rOPINIRole (rOPINIRole 0.25 mg oral tablet) 1 tab(s) by mouth Two (2) times a day Pharmacy Information [facility] - [id number]: [phone] [place], [place] [id number] [phone] What How Much When Why Comments Stop Taking amoxicillin-clavulanate (amoxicillin-clavulanate 500 mg-125 mg oral tablet) 1 tab(s) by mouth Every 12 hours Duration: 10 Days Stop Taking azithromycin (Azithromycin 3 Day Dose Pack 500 mg oral tablet) 1 tab(s) by mouth Every day Community acquired pneumonia Duration: 3 Days Please take this list to your next doctor s visit. Bring all medications you take, including over the counter medications, herbals and other supplements with you to your doctor s visit. Patients and families are reminded to discard old lists and to update any records with all medication providers or retail pharmacies. Education Materials Chronic Obstructive Pulmonary Disease Exacerbation Chronic obstructive pulmonary disease (COPD) is a long-term (chronic) lung problem. In COPD, the flow of air from the lungs is limited. COPD exacerbations are times that breathing gets worse and you need more than your normal treatment. Without treatment, they can be life threatening. If they happen often, your lungs can become more damaged. If your COPD gets worse, your doctor may treat you with: Medicines. Oxygen. Different ways to clear your airway, such as using a mask. Follow these instructions at home: Medicines Take [id number] and prescription medicines only as told by your doctor. If you take an antibiotic or steroid medicine, do not stop taking the medicine even if you start to feel better. Keep up with shots (vaccinations) as told by your doctor. Be sure to get a yearly (annual) flu shot. Lifestyle Do not smoke. If you need help quitting, ask your doctor. Eat healthy foods. Exercise regularly. Get plenty of sleep. Avoid tobacco smoke and other things that can bother your lungs. Wash your hands often with soap and water. This will help keep you from getting an infection. If you cannot use soap and water, use hand plow and boring machine tender. During flu season, avoid areas that are crowded with people. General instructions Drink enough fluid to keep your pee (urine) clear or pale yellow. Do not do this if your doctor has told you not to. Use a cool mist machine (vaporizer). If you use oxygen or a machine that turns medicine into a mist (nebulizer), continue to use it as told. Follow all instructions for rehabilitation. These are steps you can take to make your body work better. Keep all follow-up visits as told by your doctor. This is important. Contact a doctor if: Your COPD symptoms get worse than normal. Get help right away if: You are short of breath and it gets worse. You have trouble talking. You have chest pain. You cough up blood. You have a fever. You keep throwing up (vomiting). You feel weak or you pass out (faint). You feel confused. You are not able to sleep because of your symptoms. You are not able to do daily activities. Summary COPD exacerbations are times that breathing gets worse and you need more treatment than normal. COPD exacerbations can be very serious and may cause your lungs to become more damaged. Do not smoke. If you need help quitting, ask your doctor. Stay up-to-date on your shots. Get a flu shot every year. This information is not intended to replace advice given to you by your health care provider. Make sure you discuss any questions you have with your health care provider. Document Released: 03/04/2012 Document Revised: 02/26/2018 Document Reviewed: 04/20/2017 [employer] Patient Education 2020 [employer] Additional Information VACCINATE! IT SAVES LIVES! Members of the community who have not yet received the COVID-19 vaccine and would like to receive it can visit one of [facility] vaccine clinics. There are many vaccine clinic locations within the [facility]. For locations and available times, please visit [email or web address].o hio.gov/. It is important to note that some COVID mobile vaccine clinics are held outdoors and may be canceled in rainy or stormy conditions. To learn more about pediatric vaccinations (ages 5-11), we invite you to visit the [facility] webpage. [email or web address].[email or web address].org/p [email or web address]-Jldmx-Qrqkjtkdowe-Freq eoffnq-Sldlp-Aripaaeff.html To learn more about the COVID-19 vaccine, we invite you to visit the CDC website for a list of frequently asked questions.https://www.cdc.gov/co ronavirus/2019-ncov/vaccines/faq .html [employer] Patient Portal Access Instructions: Stay connected with your healthcare team and access your personal medical information anytime with the [employer] Patient Portal. Please follow the directions below to create your [employer] account: 1.Access the email account you provided upon registration to the hospital/physician office.2.Look for an invitation email from [facility].3.Open the email and access the invitation link: Accept Invitation to [facility].4.Fill in the required gilmore to create your account. To access your account, visit [employer] or scan the [employer] code above. Click the blue button labeled "Access Patient Portal" and then log in with the username and password that you created in the steps above. You will be able to view your test results, lab results, a summary of your visits, upcoming appointments and more. There is also a convenient messaging option where you can send secure messages to your provider. In addition, you will have the ability to download any documents or summaries to your computer and/or send the information securely to a physician. Remember that your healthcare information is confidential, so carefully consider who you will allow to register on the [facility] Patient Portal for access to your information. You can also access the [facility] Patient Portal on the [employer] toby. Simply click on "Patient Portal" and then log into your account. If you would like to receive a full copy of your medical records, please contact the [facility] Medical Records Department by calling [phone], Thursday through Thursday between 8 a.m. and [...] Call your local pharmacy or go to [email or web address] to find one close to you.3.Make use of household items: Use cat litter or old coffee grounds to dispose medications if other options are not available. Mix your drugs with these household products, seal them in an airtight container and throw it into the garbage. Call [facility]: [phone] to be sure your drugs can be [...] a CHART COPY. Signatures Patient Education Materials Chronic Obstructive Pulmonary Disease Exacerbation, Qoik-ju-Spth Medication Leaflets My discharge plan and instructions have been reviewed and explained to me and I,ZAYDA DAVIS understand my current condition and have read and understand these discharge instructions. I have received a written copy of the plan/instructions. If I have questions, I am aware that I should contact my doctor. 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 Acute COPD exacerbation. 2. Coronary artery disease. 3. End-stage renal disease on hemodialysis. 4. Diabetes mellitus type 2. 5. Chronic congestive heart failure with preserved EF. 6. Chronic hypoxic respiratory failure on home oxygen of 2 L 7. Obesity class III with BMI of 43. Hospital Course 59-year-old female with multiple medical problem listed above presented to the hospital with shortness of breath, was admitted for acute COPD exacerbation, patient was started on steroids, breathing treatments, nephrology was consulted for end-stage renal disease to manage the dialysis. The patient was evaluated and seen by nephrology team who indicated that there is no need for dialysis today, patient can resume her normal scheduled dialysis days on Thursday and Thursday. Patient was examined and evaluated by me today, she stated that she is having significant improvements regarding her breathing, no chest pain no abdominal pain no nausea or vomiting, patient was awake alert and oriented, tolerating diet fairly well, patient will be discharged home today all her questions were answered, all her concerns were addressed, I did speak to her sister June, and I updated her about the patient's condition all her questions were answered, all concerns were addressed. Allergies NKA Procedures None Consults Consult to Physician - Ordered -- 01/01/25 5:36:00 EDT, COREY RAGLAND MD, Routine, ESRD Consult to Tobacco Senior Systems Architect - Ordered -- 01/01/25 5:36:00 EDT, Once, give patient smoking cessation handouts Imaging Results and Diagnostics See Corinna Objective Vitals and Measurements T: 36.2 C (Oral) TMIN: 36.1 C (Oral) TMAX: 36.7 C (Oral) HR: 70 RR: 16 BP: 151/72 SpO2: 93% Weight Dosing Weight: 105 kg (01/01/25) Head: atraumatic normocephalic Neck: supple no JVD Lungs: clear to auscultation bilaterally, no wheezes no accessory muscle use. Heart: S1-S2 regular rate and rhythm, no murmurs Abdomen: soft nontender nondistended, bowel sounds are present all 4 quadrants Lower extremities: no cyanosis, no chronic skin changes, pulse palpable +1 bilaterally, no edema Skin: showed no rash Neurological: patient is awake alert and oriented 3, no focal deficit. Pending Labs and Studies None Code Status Code Status - Ordered -- 01/01/25 5:36:00 EDT, Full Code, Constant Order Admission Date 12/31/2024 Discharge Date 01/02/2025 Medications New Prescription predniSONE (prednisone 10mg tab (TAPER))Taper 40-30-20-10 x 3 days each dose by mouth once a day for 12 Days. Take with food/meal. Refills: 0. Unchanged acetaminophen (acetaminophen 325 mg oral tablet)2 tab(s) by mouth every 6 hours as needed as needed for pain. allopurinol (allopurinol 100 mg oral tablet)1 tab(s) by mouth once a day for 90 Days. Refills: 3. aspirin (aspirin 81 mg oral delayed release tablet)1 tab(s) by mouth once a day. atorvastatin (atorvastatin 80 mg oral tablet)1 tab(s) by mouth once a day for 90 Days. Refills: 3. calcium acetate (calcium acetate 667 mg oral capsule)2 cap by mouth three (3) times a day. with meals. calcium carbonate (Tums E-X 750 mg oral tablet, chewable)1 tab(s) Chewed two (2) times a day. Scheduled in between meals. carvedilol (Coreg 3.125 mg oral tablet)1 tab(s) by mouth two (2) times a day. Refills: 3. cholecalciferol (Vitamin D3 50 mcg (2000 intl units) oral capsule)1 tab(s) by mouth every day. Refills: 11. DME (FreeStyle Navid 3+ Sensors)Place once sensor to the back of the upper arm every 15 days. Use reader or phone toby for daily blood sugar checks. 1 month supply. DXE11.65. Refills: 11. DME (Pen needles)qs for 1 month supply. 31 G x 8 mm 5/16" use as diecte. Refills: 11. ezetimibe (Zetia 10 mg oral tablet)1 tab(s) by mouth once a day. Refills: 3. gabapentin (gabapentin 100 mg oral capsule)1 cap by mouth two (2) times a day for 30 Days. Refills: 5. hydrALAZINE (hydrALAZINE 100 mg oral tablet)1 tab(s) by mouth two (2) times a day. insulin aspart (Novolog) (NovoLOG FlexPen 100 units/mL injectable solution)Inject 5 units SubQ with breakfast, 8 units with lunch, and 5 units with dinner. Do not give insulin if BG <80.. Refills: 6. insulin glargine (Toujeo Max SoloStar 300 units/mL subcutaneous solution)20 unit(s) Subcutaneous once a day. Refills: 11. melatonin (melatonin 5 mg oral tablet)1 tab(s) by mouth daily at bedtime as needed as needed for insomnia. multivitamin (Nephro-Todd oral tablet)1 tab(s) by mouth once a day. multivitamin (Potter Caps)1 cap by mouth once a day. rOPINIRole (rOPINIRole 0.25 mg oral tablet)1 tab(s) by mouth two (2) times a day. Discontinued amoxicillin-clavulanate (amoxicillin-clavulanate 500 mg-125 mg oral tablet)1 tab(s) by mouth every 12 hours for 10 Days. azithromycin (Azithromycin 3 Day Dose Pack 500 mg oral tablet)1 tab(s) by mouth every day for 3 Days. Refills: 0. Follow Up Follow Up with DENISSE SUTTON When:Within 1-2 days Where:[address] [place] [address] [phone] Additional Information: Please call the office to schedule your hospital follow up appointment . Follow Up Appointments No qualifying data available. Follow Up Labs/Studies Discharge Labs No Follow-up Labs Discharge Studies No Follow-up Studies Discharge Diet No qualifying data available. Discharge Activity No qualifying data available. Condition on Discharge Stable Readmission Risk/Palliative Score No qualifying data available. Discharge Disposition Home Time Spent 33 minutes Digitally Signed by BRIJESH MELENDEZ MD on 01/02/2025 12:28 PM [facility] 01-01-2025 Evaluation + Plan note Extrac sameer from: Title:History and Physical Author:BAKARI COVINGTON ON Date:01/01/25 COPD exacerbation. Chronic h ypoxic respiratory failure on 2 L NC. Currently stable. I offered the prospect of outpatient management. However, the patient is apprehensive considering ongoing shortness of breath. She will be observed in the hospital for further management. Admit for observation regular floor -Solu-Medrol 60 mg every 8 hours -DuoNebs QID -As needed albuterol Continue patient's home O2 Acute episode of vomiting. Self-limited. Currently resolved. As needed ondansetron. CAD. No CP. Continue home medications. ESRD. Chronic. Consult nephrology. Medications were not verified by pharmacy at the time of this dictation. Reconciliation to be completed once medications are verified; will address additional chronic medical problems at that time. DVT prophylaxis: SCDs Note dictated using voice recognition software and may contain typographical errors. Future Appointments Appointment Date:01/16/2025 03:00:00 PM Scheduled Provider:DENISSE SUTTON Location:[facility] Appointment Type:HAYDE OV Follow Up Appointment Date:02/20/2025 03:30:00 PM Scheduled Provider: Location:[facility] Appointment Type:MEDS - Diabetic Individual Visit Appointment Date:02/21/2025 03:30:00 PM Scheduled Provider:DENISSE SUTTON Location:[facility] Appointment Type:HAYDE SHABAZZ Future Scheduled Tests Laboratory* Lipid Profile 04/13/24 * Complete Metabolic Panel 04/13/24 Radiology* XR Chest 2 Views (PA & Lateral) 11/22/24 [facility] 10-05-2025 Nephrology Consult note Date of Service January 01, 2025 Reason for Consultation End-stage renal disease History of Present Illness Patient is 59 years old. History of end-stage renal disease currently on hemodialysis on Tuesdays and Saturdays in [place]. She did have her full treatment yesterday. She presented to theemergency department with cough, shortness of breath, nausea and emesis, diarrhea. She was diagnosed with a COPD exacerbation. In the form of Solu-Medrol for COPD exacerbation. Reviewing the records from her dialysis treatment yesterday she did reach her target weight. Chest x-ray is not consistentwith pulmonary edema. Review of Systems Currently feels better. Less short of breath. Less cough. She did have chest pressure but none currently. Appetite has increased. She has eaten all of her lunch. No further nausea or emesis. She did have loose stool upon arrival to her room but none since. No fevers or chills. Physical Exam Vitals and Measurements T: 36.8 C (Oral) HR: 75 RR: 20 BP: 158/68 SpO2: 93% HT: 155 cm WT: 105 kg BMI: 43.7 Weight Dosing Weight: 105 kg (01/01/25) General: No respiratory distress on nasal cannula oxygen. She is anxious and tearful however. HEENT: Mucosa was moist, sclera anicteric, extraocular muscles intact, neck veins were flat, no carotid bruits Lungs: Poor air movement but clear Heart: Regular with no murmurs rubs or gallops Abdomen: Positive bowel sounds, soft, no palpable masses Extremities: No edema, pulses 2+ in dorsalis pedis arteries. Access: Right upper arm AV fistula with positive bruit and thrill Skin: No rashes, normal turgor Lab Results She is currently being treated with corticosteroids 12/31 22:27 WBC: 6.6 Hgb: 12.3 Hct: 37.2 Platelet: 169 Neutrophil %: 72.3 Glucose Level: 82 Sodium Level: 139 Potassium Level: 4.2 BUN: 21.0 Creatinine Lvl (s): 4.60 H Assessment/Plan 1. End-stage renal disease: Patient typically does dialysis on Tuesdays and Saturdays. Her last treatment was yesterday. It was uneventful. She did reach her target weight. Next scheduled treatment will be on Thursday. Will assess tomorrow whether she would benefit from additional ultrafiltration and resetting her target weight. 2. Shortness of breath: Likely due to COPD exacerbation. Breathing has improved with Solu-Medrol. As she has no edema and no JVD, it is doubtful that her shortness of breath is secondary to fluid overload. Problem List/Past Medical History Ongoing (HFpEF) heart failure with preserved ejection fraction Anemia Anxiety Back pain Breast cancer screening CAD (coronary artery disease) Chronic constipation Chronic headaches Chronic respiratory failure Class 3 obesity Congestive heart failure Diabetic neuropathy Diabetic retinopathy DM type 2 with diabetic mixed hyperlipidemia Emotional lability 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 to type 2 diabetes mellitus Episode of shaking ESRD on dialysis Family conflict Generalized anxiety disorder Hammertoe of right foot Hearing loss History of stroke Hyperlipidemia Hypertension Hypoxia Iron deficiency anemia Jaundice Low back pain Major depressive disorder Mass of left lower leg Medicare annual wellness visit, subsequent Mental status alteration On anticoagulant therapy On home oxygen therapy Pneumonia Postmenopausal Screening for breast cancer Screening for colon cancer Spasm of left trapezius muscle Systolic murmur Type 2 diabetes mellitus Valvular vegetation Vitamin D deficiency Historical Acute hypoxemic respiratory failure due to COVID-19 Anxiety Anxiety and depression AV fistula thrombosis CKD stage 3 secondary to diabetes COVID-19 Depression Depression Diabetes type 2, uncontrolled ESRD on hemodialysis Eustachian tube dysfunction Fall Forehead abrasion Hypokalemia Left shoulder pain Mental status change resolved Pneumonia due to COVID-19 virus Postmenopausal vaginal bleeding Psychosis Respiratory insufficiency Slurred speech Stage 4 chronic kidney disease URI (upper respiratory infection) Procedure/Surgical History Fistula: 03/30/23 Cholecystectomy: 03/30/22 Echocardiogram: 01/22/22 Cardiovascular stress testin01/10/22 Fistula: 2021 Cardiac catheterization: 05/27/21 Cardiovascular stress testin04/19/21 Echocardiogram: 01/21/21 Doppler ultrasound of bilateral carotid arteries: 08/21/20 Appendectomy Stent Medications Inpatient acetaminophen, 650 mg= 2 tab(s), Oral, q6hWA, PRN allopurinol, 100 mg= 1 tab(s), Oral, qDay aspirin 81 mg oral delayed release tablet, 81 mg= 1 tab(s), Oral, qDay atorvastatin, 80 mg= 1 tab(s), Oral, qDay calcium acetate, 1334 mg= 2 tab(s), Oral, TID calcium carbonate, 750 mg= 1.5 tab(s), Chewed, BID Coreg, 3.125 mg= 1 tab(s), Oral, BID Dextrose 50% IV Push, 25 gram(s)= 50 mL, IV Push, AsDirected, PRN DuoNeb, 3 mL, Inhalation, TIDRT gabapentin, 100 mg= 1 cap(s), Oral, BID heparin 5000 units/mL injection, 5000 unit(s)= 1 mL, Subcutaneous, q8h HumaLOG 100 units/mL subcutaneous solution, 5 unit(s)= 0.05 mL, Subcutaneous, TIDM HumaLOG 100 units/mL subcutaneous solution, Give 0-10 units/dose, Subcutaneous, TIDAC hydrALAZINE, 100 mg= 2 tab(s), Oral, BID Lantus, 20 unit(s)= 0.2 mL, Subcutaneous (INT), qDay melatonin, 3 mg= 1 tab(s), Oral, qHS, PRN melatonin, 3 mg= 1 tab(s), Oral, qHS, PRN Proventil (2.5 mg/3 mL) inhalation solution, 2.5 mg= 3 mL, Inhalation, q2hRT, PRN rOPINIRole 0.25 mg oral tablet, 0.25 mg= 1 tab(s), Oral, BID SOLU-Medrol 125 mg pf injection, 60 mg= 0.96 mL, IV Push, q8h Vitamin D3 50 mcg (2000 intl units) oral tablet, 50 mcg= 1 tab(s), Oral, Daily Zetia, 10 mg= 1 tab(s), Oral, qDay Zofran, 4 mg= 2 mL, IV Push, q4h, PRN Home acetaminophen 325 mg oral tablet, 650 mg= 2 tab(s), Oral, q6h, PRN allopurinol 100 mg oral tablet, 100 mg= 1 tab(s), Oral, qDay, 3 refills amoxicillin-clavulanate 500 mg-125 mg oral tablet, 1 tab(s), Oral, q12h aspirin 81 mg oral delayed release tablet, 81 mg= 1 tab(s), Oral, qDay atorvastatin 80 mg oral tablet, 80 mg= 1 tab(s), Oral, qDay, 3 refills Azithromycin 3 Day Dose Pack 500 mg oral tablet, 500 mg= 1 tab(s), Oral, Daily calcium acetate 667 mg oral capsule, 1334 mg= 2 cap(s), Oral, TID Coreg 3.125 mg oral tablet, 3.125 mg= 1 tab(s), Oral, BID, 3 refills FreeStyle Navid 3+ Sensors, See Instructions, 11 refills gabapentin 100 mg oral capsule, 100 mg= 1 cap(s), Oral, BID, 5 refills hydrALAZINE 100 mg oral tablet, 100 mg= 1 tab(s), Oral, BID melatonin 5 mg oral tablet, 5 mg= 1 tab(s), Oral, qHS, PRN Nephro-Todd oral tablet, 1 tab(s), Oral, qDay NovoLOG FlexPen 100 units/mL injectable solution, See Instructions, 6 refills Pen needles, See Instructions, 11 refills Alok Caps, 1 cap(s), Oral, qDay rOPINIRole 0.25 mg oral tablet, 0.25 mg= 1 tab(s), Oral, BID Toujeo Max SoloStar 300 units/mL subcutaneous solution, 20 unit(s), Subcutaneous, qDay, 11 refills Tums E-X 750 mg oral tablet, chewable, 750 mg= 1 tab(s), Chewed, BID Vitamin D3 50 mcg (2000 intl units) oral capsule, 50 mcg= 1 tab(s), Oral, Daily, 11 refills Zetia 10 mg oral tablet, 10 mg= 1 tab(s), Oral, qDay, 3 refills Allergies NKA Social History Alcohol Use: Never., 08/09/2018 Home/Environment Living situation: Home with assistance. Domestic Concerns: None. 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 Aneurysm: Maternal Uncle. Diabetes: Mother, Sister and Brother. Heart disease: Mother, Father, Sister and Brother. Hypertension: Mother, Father, Sister and Brother. Health Status Family Member(s) Immunizations pneumococcal 23-valent vaccine(Pneumovax: 0.5 unknown unit (04/22/17) SARS-CoV-2 mRNA (tozinameran) vaccine: 30 mcg (04/11/21) SARS-CoV-2 mRNA (tozinameran) vaccine: 30 mcg (03/21/21) tetanus/diphtheria/pertussMUL.ORD![id number]: 0.5 unknown unit (03/04/17) Digitally Signed by ROSARIO CORREA MD on 01/01/2025 01:08 PM [id number] Res[facility] Hospital Progress note Respiratory Therapy Evaluation Entered On: 01/01/2025 9:59 EDT Performed On: 01/01/2025 9:58 EDT by Kamlesh Norris Respiratory Therapy Evaluation Pulmonary Status : Severe or exacerbated lung disease or acute pulmonary process Surgical Status : No surgery Chest X-Ray : Infiltrates or atelectasis in more than one lobe or rib fractures Respiratory Pattern (RT) : RR 10-20 BPM, Regular pattern Breath Sounds (RT) : Diminished due to poor inspiratory effort Cough (RT) : Strong, non-productive Level of Activity : Ambulatory Mental Status : Alert, oriented and cooperative Respiratory Therapy Evaluation Score : 8 RT Evaluation Steps : Chart review completed, Assessment completed: RR, HR, Auscultation, Cough, Patient Interview completed Respiratory Evaluation Triage Score : (6-10) Freq: TIDRT & Albuterol Q2hRT prn RT Assessment [Frequency/Schedule] : Triage score 6-10, change frequency to TIDRT and Albuterol Q2hRT PRN per protocol Kamlesh Norris - 01/01/2025 9:58 EDT Digitally Signed by Kamlesh Norris on 01/01/2025 09:58 AM [id number] Note Subjective: Patient seen for shortness of breath patient was examined and evaluated today, patient denies chest pain, patient continues to have shortness of breath, no abdominal pain, no nausea or vomiting, no tolerating diet fairly well, I did notice that the patient was falling asleep while she is talking to me, therefore we will order an ABG to evaluate for any possible hypercapnia. Vitals Signs(Last 24 hrs)__Last Charted Minimum Maximum Temp36.8(JAN 01 04:28)36.8(JAN 01 04:28)36.8(JAN 01 04:28) Heart Rate75(JAN 01 04:28)74(JAN 01 03:36)75(JAN 01 04:28) SBPH 152(JAN 01:28)H 152(JAN 01 04:28)H 166(DEC 31 18:38) DBP65(JAN 01:28)L 52(JAN 01 00:51)69(DEC 31 18:38) Physical examination: HEENT, is atraumatic normocephalic, pupils are equal, no pallor Neck supple no JVD Lungs scattered wheezes heard in lower lung gilmore bilaterally, no rhonchi, no accessory muscle use Heart S1-S2 regular Abdomen soft nontender nondistended bowel sounds are present all 4 quadrants Lower extremities show no edema, no cyanosis, pulses palpable +2 bilaterally Skin showed no rash Neurological examination patient is awake alert and oriented 3, cranial nerves are grossly intact, no focal neurological defect could be appreciated Assessment and plan: 1. Acute COPD exacerbation. 2. Coronary artery disease. 3. End-stage renal disease on hemodialysis. 4. Diabetes mellitus type 2. 5. Chronic congestive heart failure with preserved EF. 6. Chronic hypoxic respiratory failure on home oxygen of 2 L. 7. Obesity. Plan: 1. Continue with IV steroids. 2. Continue with the oxygen, breathing treatments, encourage use of incentive spirometer and Acapella. 3. Continue with heparin for DVT prophylaxis. 4. Follow further recommendations from nephrology team for the chronic dialysis. 5. Continue to monitor patient clinically as well as her labs. 6. I personally reviewed patient's home medication, and continued was necessary for the stay duringthe hospitalization, including Lantus, Humalog. 7. Continue with Accu-Cheks AC and at bedtime on sliding scale. Patient was told her plan of care all questions were answered, concerns were addressed, I did call the family, sister and the daughter all their questions were answered, all their concerns were addressed Level of Care Indication SD monitor (other: specify in note) DVT Prophylaxis Heparin SQ Maintenance IVF Indication NA / No maintenance IVF Indwelling Urinary Catheter Indication NA No indwelling catheter Anticipated Timeline of Discharge 72+ hours Anticipated DC Disposition Pending Therapy Evaluation Labs: Basic Metabolic Profile Glucose Level: 82 mg/dL (12/31/24 22:27:00) Sodium Level: 139 mEq/L (12/31/24 22:27:00) Potassium Level: 4.2 mEq/L (12/31/24 22:27:00) Chloride: 93 mEq/L Low (12/31/24 22:27:00) CO2: 36 mEq/L High (12/31/24 22:27:00) BUN/Creatinine Ratio: 4.6 ratio Low (12/31/24 22:27:00) Complete Blood Count WBC: 6.6 10^3/mcL (12/31/24 22:27:00) RBC: 3.89 10^6/mcL Low (12/31/24 22:27:00) Hgb: 12.3 G/dL (12/31/24 22:27:00) Hct: 37.2 % (12/31/24 22:27:00) MCV: 95.5 fL (12/31/24::00) MCH: 31.7 pg (12/31/24::00) MCHC: 33.2 G/dL (12/31/24:27:00) RDW: 17.5 % High (12/31/24 22:27:00) Platelet: 169 10^3/mcL (12/31/24:27:00) MPV: 10.5 fL (12/31/24 22:27:00) Medications (23) Active Scheduled: (17) albuterol - ipratropium 2.5 mg-0.5 mg/3 mL Inhal Daria UD 3 mL, Inhalation, q4hRT allopurinol 100 mg tablet 100 mg 1 tab(s), Oral, qDay aspirin 81 mg EC 81 mg 1 tab(s), Oral, qDay atorvastatin 80 mg tablet 80 mg 1 tab(s), Oral, qDay calcium acetate 667 mg Tab 1,334 mg 2 tab(s), Oral, TID calcium carbonate 500 mg Chewable 750 mg 1.5 tab(s), Chewed, BID carvedilol 3.125 mg tablet 3.125 mg 1 tab(s), Oral, BID cholecalciferol 50 mcg tablet (Vit D3 2000 unit(s)) 50 mcg 1 tab(s), Oral, Daily ezetimibe 10 mg tablet 10 mg 1 tab(s), Oral, qDay gabapentin 100 mg Capsule 100 mg 1 cap(s), Oral, BID heparin 5,000 units/mL (1 mL) vial 5,000 unit(s) 1 mL, Subcutaneous, q8h hydralazine 50 mg Tablet 100 mg 2 tab(s), Oral, BID insulin glargine 20 unit(s) 0.2 mL, Subcutaneous (INT), qDay insulin lispro 100 units/mL Soln (3 mL) 5 unit(s) 0.05 mL, Subcutaneous, TIDM insulin lispro 100 units/mL Soln (3 mL) Give 0-10 units/dose, Subcutaneous, TIDAC methylPREDNISolone succ 125mg (62.5mg/1mL) after dilution 60 mg 0.96 mL, IV Push, q8h rOPINIRole 0.25 mg tablet 0.25 mg 1 tab(s), Oral, BID Continuous: (0) PRN: (6) acetaminophen 325 mg Tablet 650 mg 2 tab(s), Oral, q6hWA albuterol 0.083% Soln UD (2.5mg/3 mL) 2.5 mg 3 mL, Inhalation, q2hRT dextrose 50% Solution Disp syringe 50 mL 25 gram(s) 50 mL, IV Push, AsDirected melatonin 3 mg tablet 3 mg 1 tab(s), Oral, qHS melatonin 3 mg tablet 3 mg 1 tab(s), Oral, qHS ondansetron 2 mg/ 1 mL 2 mL INJ 4 mg 2 mL, IV Push, q4h Signature: Brijesh Melendez MD Digitally Signed by BRIJESH MELENDEZ MD on 01/01/2025 01:52 PM [id number] History and physical note Date of Service 01/01/25 Chief Complaint Short of breath History of Present Illness 59-year-old female with PMHx class III obesity, DM 2, HFpEF, COPD on 2 L NC, CAD presents to the EDfor SOB. History obtained by patient, ED physician, chart review. The patient ate at 2 PM. She subsequently vomited and after that time she has been short of breath. Prior to this, she has noted an increase in nasal drainage and cough. Kidney in the emergency department she is afebrile and hemodynamically stable. Saturating adequately on room air. CBC with no leukocytosis, anemia, abnormal platelet count. CMP with CO2 36. Troponin normal x 2. BNP elevated CXR shows hypoventilatory changes. No acute process. ECG is NSR Patient received albuterol, Solu-Medrol. Physical Exam Vitals and Measurements HR: 70 RR: 18 BP: 155/52 SpO2: 92% GA: Alert and oriented x3, no acute distress Abd: Not distended HEENT: NCAT, sclera anicteric, oral mucosa moist Pulmonary: Scattered wheezes. MSK: No gross deformities Cardiovascular: Not tachycardic Skin: Warm and dry Neuro: Spontaneous movement of all extremities, cranial nerves II through XII grossly normal Psychiatric: Thought content, associations, attention are all normal. Lab Results 12/31 WBC: 6.6 10^3/mcL (12/31/24:27:00) RBC: 3.89 10^6/mcL Low (12/31/24::) Hgb: 12.3 G/dL (12/31/24::) Hct: 37.2 % (12/31/24::) MCV: 95.5 fL (12/31/24::00) MCH: 31.7 pg (12/31/24::) MCHC: 33.2 G/dL (12/31/24::00) RDW: 17.5 % High (12/31/24 22::00) Platelet: 169 10^3/mcL (12/31/24::00) MPV: 10.5 fL (12/31/24::00) Monocyte Distribution Width: 21.78 High (12/31/24 22:27:00) Neutrophil %: 72.3 % (12/31/24 22:27:00) Lymphocyte %: 8.9 % Low (12/31/24:27:00) Monocyte %: 12.2 % (12/31/24::00) Eosinophil %: 6.1 % High (12/31/24::00) Basophil %: 0.5 % (12/31/24::) Neutrophil, Absolute: 4.7 10^3/mcL (12/31/24::00) Lymphocyte, Absolute: 0.6 10^3/mcL Low (12/31/24 22:27:00) Monocyte, Absolute: 0.8 10^3/mcL (12/31/24:27:00) Eosinophil, Absolute: 0.4 10^3/mcL (12/31/24 22:27:00) Basophil, Absolute: 0 10^3/mcL (12/31/24::00) Glucose Level: 82 mg/dL (12/31/24 22:27:00) Sodium Level: 139 mEq/L (12/31/24 22:27:00) Potassium Level: 4.2 mEq/L (12/31/24::00) Chloride: 93 mEq/L Low (12/31/24::00) CO2: 36 mEq/L High (12/31/24::00) Electrolyte Balance: 10 mEq/L (12/31/24::00) BUN: 21 mg/dL (12/31/24::00) Creatinine Lvl (s): 4.6 mg/dL High (12/31/24:27:00) Estimated Glomerular Filtration Rate: 10 ml/min/1.73sqm (12/31/24::) BUN/Creatinine Ratio: 4.6 ratio Low (12/31/24::00) Calcium Lvl: 9.7 mg/dL (12/31/24::00) Total Protein: 7.6 G/dL (12/31/24::00) Albumin Level: 3.8 G/dL (12/31/24::00) Globulin: 3.8 G/dL (12/31/24::00) A/G Ratio: 1 ratio (12/31/24::00) Bili Total: 0.4 mg/dL (12/31/24::00) Alk Phos: 87 U/L (12/31/24 22:27:00) AST/SGOT: 40 U/L High (12/31/24 22:27:00) ALT/SGPT: 27 U/L (12/31/24:27:00) Lipase Level: 35 U/L (12/31/24 22:27:00) N-Terminal proBNP: 7152 pg/mL High (12/31/24 22:27:00) High Sensitivity Troponin I: 17 ng/L (12/31/24 23:36:00) SARS-CoV-2 PCR: Cepheid Neg (12/30/24 15:33:00) FLU A PCR: Cepheid Neg (12/30/24 15:33:00) FLU B PCR: Cepheid Neg (12/30/24 15:33:00) RSV PCR: Cepheid Neg (12/30/24 15:33:00) Blood Glucose, Capillary: 84 mg/dL (12/31/24 23:51:00) Imaging Results and Diagnostics XR Chest 1 View Result Date: December 31, 2024 Verified By: TONY MANUEL MD CLINICAL STATEMENT: IMPRESSION: Hypoventilatory changes. No acute process. I have personally reviewed the images of this examination and agree with theresident's findings and interpretation. Assessment/Plan COPD exacerbation. Chronic hypoxic respiratory failure on 2 L NC. Currently stable. I offered the prospect of outpatient management. However, the patient is apprehensive considering ongoing shortnessof breath. She will be observed in the hospital for further management. Admit for observation regular floor -Solu-Medrol 60 mg every 8 hours -DuoNebs QID -As needed albuterol Continue patient's home O2 Acute episode of vomiting. Self-limited. Currently resolved. As needed ondansetron. CAD. No CP. Continue home medications. ESRD. Chronic. Consult nephrology. Medications were not verified by pharmacy at the time of this dictation. Reconciliation to be completed once medications are verified; will address additional chronic medical problems at that time. DVT prophylaxis: SCDs Note dictated using voice recognition software and may contain typographical errors. Problem List/Past Medical History Ongoing (HFpEF) heart failure with preserved ejection fraction Anemia Anxiety Back pain Breast cancer screening CAD (coronary artery disease) Chronic constipation Chronic headaches Chronic respiratory failure Class 3 obesity Congestive heart failure Diabetic neuropathy Diabetic retinopathy DM type 2 with diabetic mixed hyperlipidemia Emotional lability 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 to type 2 diabetes mellitus Episode of shaking ESRD on dialysis Family conflict Generalized anxiety disorder Hammertoe of right foot Hearing loss History of stroke Hyperlipidemia Hypertension Hypoxia Iron deficiency anemia Jaundice Low back pain Major depressive disorder Mass of left lower leg Medicare annual wellness visit, subsequent Mental status alteration On anticoagulant therapy On home oxygen therapy Pneumonia Postmenopausal Screening for breast cancer Screening for colon cancer Spasm of left trapezius muscle Systolic murmur Type 2 diabetes mellitus Valvular vegetation Vitamin D deficiency Historical Acute hypoxemic respiratory failure due to COVID-19 Anxiety Anxiety and depression AV fistula thrombosis CKD stage 3 secondary to diabetes COVID-19 Depression Depression Diabetes type 2, uncontrolled ESRD on hemodialysis Eustachian tube dysfunction Fall Forehead abrasion Hypokalemia Left shoulder pain Mental status change resolved Pneumonia due to COVID-19 virus Postmenopausal vaginal bleeding Psychosis Respiratory insufficiency Slurred speech Stage 4 chronic kidney disease URI (upper respiratory infection) Procedure/Surgical History Fistula: 03/30/23 Cholecystectomy: 03/30/22 Echocardiogram: 01/22/22 Cardiovascular stress testin01/10/22 Fistula: 2021 Cardiac catheterization: 05/27/21 Cardiovascular stress testin04/19/21 Echocardiogram: 01/21/21 Doppler ultrasound of bilateral carotid arteries: 08/21/20 Appendectomy Stent Medications Home Medications (21) Active acetaminophen 325 mg oral tablet 650 mg = 2 tab(s), PRN, Oral, q6h allopurinol 100 mg oral tablet 100 mg = 1 tab(s), Oral, qDay amoxicillin-clavulanate 500 mg-125 mg oral tablet 1 tab(s), Oral, q12h aspirin 81 mg oral delayed release tablet 81 mg = 1 tab(s), Oral, qDay atorvastatin 80 mg oral tablet 80 mg = 1 tab(s), Oral, qDay Azithromycin 3 Day Dose Pack 500 mg oral tablet 500 mg = 1 tab(s), Oral, Daily calcium acetate 667 mg oral capsule 1,334 mg = 2 cap(s), Oral, TID Coreg 3.125 mg oral tablet 3.125 mg = 1 tab(s), Oral, BID FreeStyle Navid 3+ Sensors See Instructions gabapentin 100 mg oral capsule 100 mg = 1 cap(s), Oral, BID hydrALAZINE 100 mg oral tablet 100 mg = 1 tab(s), Oral, BID melatonin 5 mg oral tablet 5 mg = 1 tab(s), PRN, Oral, qHS Nephro-Todd oral tablet 1 tab(s), Oral, qDay NovoLOG FlexPen 100 units/mL injectable solution See Instructions Pen needles See Instructions Alok Caps 1 cap(s), Oral, qDay rOPINIRole 0.25 mg oral tablet 0.25 mg = 1 tab(s), Oral, BID Toujeo Max SoloStar 300 units/mL subcutaneous solution 20 unit(s), Subcutaneous, qDay Tums E-X 750 mg oral tablet, chewable 750 mg = 1 tab(s), Chewed, BID Vitamin D3 50 mcg (2000 intl units) oral capsule 50 mcg = 1 tab(s), Oral, Daily Zetia 10 mg oral tablet 10 mg = 1 tab(s), Oral, qDay Allergies NKA Social History Alcohol Use: Never., 08/09/2018 Home/Environment Living situation: Home with assistance. Domestic Concerns: None. 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 Aneurysm: Maternal Uncle. Diabetes: Mother, Sister and Brother. Heart disease: Mother, Father, Sister and Brother. Hypertension: Mother, Father, Sister and Brother. Health Status Family Member(s) Immunizations pneumococcal 23-valent vaccine(Pneumovax: 0.5 unknown unit (04/22/17) SARS-CoV-2 mRNA (tozinameran) vaccine: 30 mcg (04/11/21) SARS-CoV-2 mRNA (tozinameran) vaccine: 30 mcg (03/21/21) tetanus/diphtheria/pertussMUL.ORD![id number]: 0.5 unknown unit (03/04/17) Code Status No qualifying data available. Digitally Signed by TOÑITO COVINGTON MD on 01/01/2025 02:55 AM [id number] Note* Exam Date Time Procedure Performing Provider Status 12/31/24 11:58 PM XR Chest 1 View TONY MANUEL MD; [facility] (Verified) [id number] ORIGINAL EXAMINATION: ONE XRAY VIEW OF THE CHEST TECHNIQUE: CHEST ONE VIEW AP/PA COMPARISON: Chest x-ray 12/30/2024 HISTORY: ORDERING SYSTEM PROVIDED HISTORY: Reason for Exam: sob, cough FINDINGS: The cardiomediastinal silhouette is stable. Lung volumes are decreased with mild crowding of the interstitial markings. No pleural effusion, focal consolidation, or pneumothorax. Mild bibasilar atelectasis. IMPRESSION: Hypoventilatory changes. No acute process. I have personally reviewed the images of this examination and agree with the resident's findings and interpretation. Interpreted by: Tony Manuel Preliminary Report By: Jair Mayes Electronically signed By Tony Manuel Dictated Date: 01/01/2025 12:04:44 AM Prelim Date: 01/01/2025 12:06:32 AM Sign Date: 01/01/2025 12:24:06 AM Ordering Provider: LARRY BARRERA [facility] [id number] Note* Exam Date Time Procedure Performing Provider Status 12/31/24 9:53 PM EKG (ED) - CV LARRY BARRERA MD; Auth ( Verified) ECG Final Report SINUS RHYTHM PROLONGED FL INTERVAL LEFT BUNDLE BRANCH BLOCK Electronic Signature: LARRY BARRERA MD 12/31/2024 23:44:45 [id number] Note Vitals: -Weight: 245.6 lbs History & Physical: Zayda returns to [facility] for follow up on diabetes management. Last A1c was at 6.7%, but due to poor renal function this is likely lower than it actually is. Will use GMI on Navid to better assess A1c range. She is currently managed on Novolog 5-8-5 and Toujeo 20 units once dialy. She doeswear Libre3 system to monitor her sugars at home. Her sister who is her caregiver is present for the visit. Past Medical History: Problems Active Family conflict Emotional lability Valvular vegetation On home oxygen therapy Chronic respiratory failure Spasm of left trapezius muscle Pneumonia Class 3 obesity Jaundice Hypoxia Episode of shaking Breast cancer screening ESRD on dialysis Diabetic neuropathy Postmenopausal DM type 2 with diabetic mixed hyperlipidemia Low back pain Systolic murmur Hearing loss Anxiety Generalized anxiety disorder Major depressive disorder Screening for colon cancer Screening for breast cancer Medicare annual wellness visit, subsequent (HFpEF) heart failure with preserved ejection fraction Mental status alteration On anticoagulant therapy Diabetic retinopathy CAD (coronary artery disease) Hammertoe of right foot Mass of left lower leg Chronic headaches 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 to type 2 diabetes mellitus Vitamin D deficiency Back pain Congestive heart failure Type 2 diabetes mellitus Iron deficiency anemia Chronic constipation Anemia History of stroke Hyperlipidemia Hypertension Medications: acetaminophen: 650 mg = 2 tab(s), Oral, q6h, PRN (as needed for pain) allopurinol: 100 mg = 1 tab(s), Oral, qDay amoxicillin-clavulanate: 1 tab(s), Oral, q12h aspirin: 81 mg = 1 tab(s), Oral, qDay atorvastatin: 80 mg = 1 tab(s), Oral, qDay calcium acetate: 1,334 mg = 2 cap(s), Oral, TID, with meals calcium carbonate: 750 mg = 1 tab(s), Chewed, BID, Scheduled in between meals carvedilol: 3.125 mg = 1 tab(s), Oral, BID cholecalciferol: 50 mcg = 1 tab(s), Oral, Daily DME: See Instructions, qs for 1 month supply. 31 G x 8 mm 08/12" use as diecte ezetimibe: 10 mg = 1 tab(s), Oral, qDay gabapentin: 100 mg = 1 cap(s), Oral, BID hydrALAZINE: 100 mg = 1 tab(s), Oral, BID insulin aspart (Novolog): See Instructions, Inject 5 units SubQ with breakfast, 8 units with lunch,and 5 units with dinner. Do not give insulin if BG <80. insulin glargine: 20 unit(s), Subcutaneous, qDay melatonin: 5 mg = 1 tab(s), Oral, qHS, PRN (as needed for insomnia) multivitamin: 1 tab(s), Oral, qDay multivitamin: 1 cap(s), Oral, qDay rOPINIRole: 0.25 mg = 1 tab(s), Oral, BID Labs: -POC HbA1c: 6.7% (11/16/24) Diabetes Labs No qualifying data available. Diabetes Type I Labs Cholesterol: 116 mg/dL (04/20/24) HDL Cholesterol: 39 mg/dL Low (04/20/24) LDL Cholesterol: 51 mg/dL (04/20/24) Triglycerides: 129 mg/dL (04/20/24) Creatinine Lvl (s): 4.53 mg/dL High (11/11/24) TSH: 3.85 mcIU/mL High (04/20/24) Hgb A1c: 5.4 % (07/07/22) Blood Glucose Monitoring: Has been wearing the Navid monitor. Results are listed below for the last 14 days: Very High (>250): 14% High (181-250): 31% Target Range (70-180): 55% Low (54-69): 0% Very Low (<54): 0% Average Glucose: 179 mg/dL Glucose Management Indicator: 7.6% % Time CGM is Active: 100% Navid report attached to document for additional information. Acute Complications: -Hypoglycemia: Has had a few more low blood sugars, but unclear if this is due to not eating. -Hyperglycemia: Denies signs or symptoms Nutrition & Physical Activity: Denies changes with diet, but sister states that she does not eat always very frequently. Did mention that breakfast that gets served at adult daycare is typically very high carb foods. States they serve pancakes, waffles, toast, bananas, etc. Assessment and Plan: Zayda's blood sugars have improved since last visit slightly. Main concern is elevated blood sugars after breakfast. States that breakfast insulin was never started at daycare because her sugars arecontrolled in the morning. Explained that these are controlled up until she eats her high carb breakfast and then readings become elevated. Instructed her to start getting 5 units with breakfast. Typed and signed note was provided to be given at daycare. Instructed to call with any issues. No changes to other medications at this time. Did need a replacement Navid sensor placed and this was done in office. Refills sent in to pharmacy. Will see them back in 2 months when next A1c is due. Total time spent caring for the patient today was 25 minutes. This includes time spent before the visit reviewing the chart (lab results, past visit documentation, reviewing CGM data etc.), time spent during the visit, and time spend after the visit on documentation, sending in prescriptions, consulting with peers, etc. Digitally Signed by Marie Quiroz PharmD on 12/21/2024 04:10 PM [facility]08-20-2025 Note Vitals: -Weight: 244 lbs History & Physical: Zayda returns to the [facility] for follow up on diabetes management and an A1c check. She is currently managed on Toujeo 20 units daily and Novolog 8 units with lunch and 5 units with dinner. KhhvF2n was at 6.8%, but A1c typically is not accurate due to poor renal function. She does now have a Libre3 system that she wears to monitor her sugars. Past Medical History: Problems Active On home oxygen therapy Chronic respiratory failure Spasm of left trapezius muscle Pneumonia Class 3 obesity Jaundice Hypoxia Episode of shaking Breast cancer screening ESRD on dialysis Diabetic neuropathy Postmenopausal DM type 2 with diabetic mixed hyperlipidemia Low back pain Systolic murmur Hearing loss Anxiety Generalized anxiety disorder Major depressive disorder Screening for colon cancer Screening for breast cancer Medicare annual wellness visit, subsequent (HFpEF) heart failure with preserved ejection fraction Mental status alteration On anticoagulant therapy Diabetic retinopathy CAD (coronary artery disease) Hammertoe of right foot Mass of left lower leg Chronic headaches 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 to type 2 diabetes mellitus Vitamin D deficiency Back pain Congestive heart failure Type 2 diabetes mellitus Iron deficiency anemia Chronic constipation Anemia History of stroke Hyperlipidemia Hypertension Medications: acetaminophen: 650 mg = 2 tab(s), Oral, q6h, PRN (as needed for pain) allopurinol: 100 mg = 1 tab(s), Oral, qDay amoxicillin-clavulanate: 1 tab(s), Oral, q12h aspirin: 81 mg = 1 tab(s), Oral, qDay atorvastatin: 80 mg = 1 tab(s), Oral, qDay calcium acetate: 1,334 mg = 2 cap(s), Oral, TID, with meals calcium carbonate: 750 mg = 1 tab(s), Chewed, BID, Scheduled in between meals carvedilol: 3.125 mg = 1 tab(s), Oral, BIDM cholecalciferol: 50 mcg = 1 tab(s), Oral, Daily DME: See Instructions, qs for 1 month supply DME: See Instructions, Check and Log Blood Pressure Daily DME: See Instructions, One rollator.DX stroke DME: See Instructions, qs for 1 month supply. 31 G x 8 mm 5/16" use as diecte DME: See Instructions, Freestyle Test Strips. Use to check blood sugar 4 times daily with insulin administrations. #1 box of 100 strips DME: See Instructions, One touch Ultra2 glucometer. Dispense #1. 0 refills. Use as directed to check blood sugar. DME: See Instructions, Discontinue home o2--patient no longer needing. . DME: See Instructions, Place once sensor to the back of the upper arm every 15 days. Use reader or phone toby for daily blood sugar checks. 1 month supply DME: See Instructions, Use reader to scan sensor once with every new sensor. Keep reader within 33 feet of the sensor and transmitter for daily blood sugar checks DME: See Instructions, True Metrix Glucometer. Use glucometer daily as directed for blood sugar checks. Dispense insurance preferred device DME: See Instructions, True Metrix Test Strips Use one test strip to check blood sugar once daily as directed. Dispense insurance preferred test strips. 1 box of 100 DME: See Instructions, True Metrix Lancets. Use one lancet to ponce finger for blood sugar testingonce daily as directed. Dispense insurance preferred lancets ezetimibe: 10 mg = 1 tab(s), Oral, qDay gabapentin: 100 mg = 1 cap(s), Oral, BID insulin aspart (Novolog): 5 unit(s), Subcutaneous, BIDAC, before lunch and dinner.If blood sugar <80 do not give. insulin glargine: 20 unit(s), Subcutaneous, qDay lidocaine-prilocaine topical: 1 toby, Topical, Once, Once before dialysis melatonin: 5 mg = 1 tab(s), Oral, qHS, PRN (as needed for insomnia) Misc Medication (ONETOUCH DELICA PLUS LANCETS EXTRA FINE 33G MISC) multivitamin: 1 tab(s), Oral, qDay multivitamin: 1 cap(s), Oral, qDay rOPINIRole: 0.25 mg = 1 tab(s), Oral, BID Labs: -POC B mg/dLPOC HbA1c: 6.7% (11/16/24) Diabetes Labs No qualifying data available. Diabetes Type I Labs Cholesterol: 116 mg/dL (04/20/24) HDL Cholesterol: 39 mg/dL Low (04/20/24) LDL Cholesterol: 51 mg/dL (04/20/24) Triglycerides: 129 mg/dL (04/20/24) Creatinine Lvl (s): 4.53 mg/dL High (11/11/24) TSH: 3.85 mcIU/mL High (04/20/24) Hgb A1c: 5.4 % (07/07/22) Blood Glucose Monitoring: Has been wearing the Navid monitor. Results are listed below for the last 14 days: Very High (>250): 19% High (181-250): 29% Target Range (70-180): 52% Low (54-69): 0% Very Low (<54): 0% Average Glucose: 185 mg/dL Glucose Management Indicator: 7.7% % Time CGM is Active: 98% Navid report attached to document for additional information. Acute Complications: -Hypoglycemia: Did have one low blood sugar reading present on Navid. Appears to be after an insulin shot, but unable to get any specifics from patient Nutrition & Physical Activity: Does eat breakfast and lunch at daycare. Based on Navid report, will need to add a Novolog dose with breakfast. Assessment and Plan: Zayad's A1c essentially remained unchanged at 6.7%. Navid report is estimating 7.7% which is likely more accurate. Does have significant elevation in her blood sugars after breakfast. Will adjust Novolog to 5-8-5 so she can take insulin with her breakfast. Will continue the Toujeo at 20 units daily. Navid has been very helpful to more accurately monitor blood sugars. Provided patient with written updated med list to take to daycare with new insulin instructions. All questions were answered andwill follow up in 1 month on medication changes. Instructed to call with any issues prior to next visit. Total time spent caring for the patient today was 25minutes. This includes time spent before the visit reviewing the chart (lab results, past visit documentation, reviewing CGM data etc.), time spentduring the visit, and time spend after the visit on documentation, sending in prescriptions, consulting with peers, etc. Digitally Signed by Marie Quiroz PharmD on 11/16/2024 04:32 PM [facility]08-17-2025 Note. MICRO - Microbiology PROCEDURE: Blood Culture (bacterial) [*1] SOURCE: Blood BODY SITE: COLLECTED DATE/TIME: 11/08/2024 19:09 EDT RECEIVED DATE/TIME: 11/08/2024 19:35 EDT START DATE/TIME: 11/08/2024 19:35 EDT FREE TEXT SOURCE: FINAL REPORTS Final Report [] Verified Date/Time/Personnel: 11/13/2024 19:59 EDT Blood Culture: No Growth at 5 days. PRELIMINARY REPORTS Preliminary Report [] Verified Date/Time/Personnel: 11/08/2024 20:59 EDT Culture has been received in lab and is no growth to date. Routine cultures are held for 5 days. Performing Locations *1: This test was performed at: [address], [facility] , [facility] [id number] Note. MICRO - Microbiology PROCEDURE: Blood Culture (bacterial) [*1] SOURCE: Blood BODY SITE: COLLECTED DATE/TIME: 11/08/2024 19:09 EDT RECEIVED DATE/TIME: 11/08/2024 19:35 EDT START DATE/TIME: 11/08/2024 19:35 EDT FREE TEXT SOURCE: FINAL REPORTS Final Report [] Verified Date/Time/Personnel: 11/13/2024 19:59 EDT Blood Culture: No Growth at 5 days. PRELIMINARY REPORTS Preliminary Report [] Verified Date/Time/Personnel: 11/08/2024 20:59 EDT Culture has been received in lab and is no growth to date. Routine cultures are held for 5 days. Performing Locations *1: This test was performed at: [address], [facility] , [facility] [id number] Cardiology Progress note Date of Service 11/10/24 Subjective Patient seen and examined at bedside. No acute overnight events. Had hemodialysis with 2.5 L removed yesterday. Telemetry showing Mobitz type I in sinus rhythm. Objective Vitals and Measurements T: 36.4 C (Skin) TMIN: 36.2 C (Skin) TMAX: 37.7 C (Oral) HR: 61 RR: 18 BP: 116/57 SpO2: 90% WT: 109.8 kg Intake and Output 7AM Yesterday to 7AM Today Intake and Output (Last 24 hours) Intake Oral Intake 570.00 Output Urinary Catheter Output: 400.00 Hemodialysis 2500.00 Stool Count 0.00 Urine Count 1.00 Total Summary Total Intake 570.00 Total Output 2900.00 Fluid Balance -2330.00 Physical Exam GENERAL: Pt is comfortable in bed. On BiPAP NECK: No JVD or Carotid Bruit CVS: S1 & S2 audible, Regular Rate and Rhythm, No Murmurs LUNG: Bronchial breath sounds bilateral GI: + BS, Abdomen is Soft EXTREMITIES: Mild lower extremity edema SKIN: Warm & Dry Weight Dosing Weight: 109.8 kg (11/10/24) Dosing Weight: 108.9 kg (11/09/24) Medications Medications (18) Active Scheduled: (8) aspirin 81 mg Chewable 81 mg 1 tab(s), Oral, qDay atorvastatin 40 mg tablet 40 mg 1 tab(s), Oral, qDay azithromycin IV 500 mg 5 mL, IV Piggyback, qDay carvedilol 12.5 mg tablet 12.5 mg 1 tab(s), Oral, BIDM cefTRIAXone IVP syringe 2 gram(s) 20 mL, IV Push (INT), qDay heparin 5,000 units/mL (1 mL) vial 5,000 unit(s) 1 mL, Subcutaneous, q8h insulin glargine 10 unit(s) 0.1 mL, Subcutaneous (INT), qHS insulin lispro 100 units/mL Soln (3 mL) Give 0-5 units/dose, Subcutaneous, TIDAC Continuous: (0) PRN: (10) acetaminophen 325 mg Tablet 650 mg 2 tab(s), Oral, q6hr acetaminophen 325 mg Tablet 650 mg 2 tab(s), Oral, q4h acetaminophen 650 mg Suppository 650 mg 1 supp, Rectal, q4h Al hydrox/Mg hydrox/simethicone 200-200-20 mg/5 mL Susp UD 30 mL, Oral, q2h albuterol - ipratropium 2.5 mg-0.5 mg/3 mL Inhal Daria UD 3 mL, Inhalation, q4hRT bisacodyl 5 mg EC tablet 10 mg 2 tab(s), Oral, qDay dextrose 50% Solution Disp syringe 50 mL 25 gram(s) 50 mL, IV Push, AsDirected docusate-senna (Senokot S) 50 mg-8.6 mg Tablet 1 tab(s), Oral, BID melatonin 3 mg tablet 3 mg 1 tab(s), Oral, qHS ondansetron 2 mg/ 1 mL 2 mL INJ 4 mg 2 mL, IV Push, q6hr Lab Results 11/09 02:56 WBC: 12.2 H Hgb: 11.2 L Hct: 34.0 Platelet: 164 Neutrophil %: 84.8 H Glucose Level: 173 H Sodium Level: 141 Potassium Level: 5.3 H BUN: 65.0 H Creatinine Lvl (s): 7.85 H 11/09 00:48 Potassium Level: 5.4 H EKG No qualifying data available. Assessment/Plan Elevated protein likely secondary to supply/demand mismatch in the setting of missed hemodialysis Acute on chronic hypoxic respiratory failure secondary to missed hemodialysis and PNA Community-acquired pneumonia Delirium Chronic hypoxic respiratory failure on 4 L home oxygen ESRD on hemodialysis History of CAD s/p LAD PCI, moderate proximal RCA disease Hypertension Hyperlipidemia Obesity Chronic left bundle branch block Mild MS Plan Patient had hemodialysis yesterday and plan for dialysis today. Troponins increased to 573 denies any chest pain will repeat today to ensure downtrending. No plan for ischemic evaluation at this time. Surface echo although poor quality showing normal EF with an immobile aortic valve echodensity which could represent Lambl's however vegetation and fibroblastoma cannot be ruled out. Review of previous echo did not show this calcified echodensity in the past. Blood cultures are pending and has been negative thus far. If blood cultures become positive we will proceed with EZEQUIEL for further evaluation. Continue with aspirin, statin, Coreg and resume other cardiac meds as tolerated by BP. Rest of management per primary team. Continue to monitor closely. Cardiology will continue to follow patient. Digitally Signed by YASMINE DICKENS MD on 11/10/2024 12:14 PM [id number] Progress note Date of Service 11/11/24 Subjective Patient seen examined at bedside. No acute overnight events. States that she would like to go home today. Telemetry showing frequent Mobitz type I and short run of NSVT. Objective Vitals and Measurements T: 36.8 C (Oral) TMIN: 36.8 C (Oral) TMAX: 37.2 C (Oral) HR: 60 (Monitored) RR: 16 BP: 134/61 SpO2:95% Intake and Output 7AM Yesterday to 7AM Today Intake and Output (Last 24 hours) Intake Oral Intake 400.00 Output Urinary Catheter Output: 100.00 Stool Count 0.00 Urine Count 0.00 Emesis Count 0.00 Total Summary Total Intake 400.00 Total Output 100.00 Fluid Balance 300.00 Physical Exam GENERAL: Pt is comfortable in bed. NECK: No JVD or Carotid Bruit CVS: S1 & S2 audible, Regular Rate and Rhythm, No Murmurs LUNG: Bronchial breath sounds bilateral GI: + BS, Abdomen is Soft EXTREMITIES: Mild lower extremity edema SKIN: Warm & Dry Weight Dosing Weight: 107 kg (11/10/24) Dosing Weight: 109.8 kg (11/10/24) Medications Medications (19) Active Scheduled: (9) aspirin 81 mg Chewable 81 mg 1 tab(s), Oral, qDay atorvastatin 40 mg tablet 40 mg 1 tab(s), Oral, qDay azithromycin IV 500 mg 5 mL, IV Piggyback, qDay carvedilol 3.125 mg tablet 3.125 mg 1 tab(s), Oral, BIDM cefTRIAXone IVP syringe 2 gram(s) 20 mL, IV Push (INT), qDay heparin 5,000 units/mL (1 mL) vial 5,000 unit(s) 1 mL, Subcutaneous, q8h insulin glargine 10 unit(s) 0.1 mL, Subcutaneous (INT), qHS insulin lispro 100 units/mL Soln (3 mL) Give 0-5 units/dose, Subcutaneous, TIDAC multivitamin (Nephrocaps) Vitamin B Complex with C and Folic Acid Capsule 1 cap(s), Oral, qDay Continuous: (0) PRN: (10) acetaminophen 325 mg Tablet 650 mg 2 tab(s), Oral, q6hr acetaminophen 325 mg Tablet 650 mg 2 tab(s), Oral, q4h acetaminophen 650 mg Suppository 650 mg 1 supp, Rectal, q4h Al hydrox/Mg hydrox/simethicone 200-200-20 mg/5 mL Susp UD 30 mL, Oral, q2h albuterol - ipratropium 2.5 mg-0.5 mg/3 mL Inhal Daria UD 3 mL, Inhalation, q4hRT bisacodyl 5 mg EC tablet 10 mg 2 tab(s), Oral, qDay dextrose 50% Solution Disp syringe 50 mL 25 gram(s) 50 mL, IV Push, AsDirected docusate-senna (Senokot S) 50 mg-8.6 mg Tablet 1 tab(s), Oral, BID melatonin 3 mg tablet 3 mg 1 tab(s), Oral, qHS ondansetron 2 mg/ 1 mL 2 mL INJ 4 mg 2 mL, IV Push, q6hr Lab Results 11/11 05:02 WBC: 6.8 Hgb: 9.6 L Hct: 28.5 L Platelet: 147 L Neutrophil %: 69.4 Glucose Level: 116 H Sodium Level: 140 Potassium Level: 4.5 BUN: 30.0 H Creatinine Lvl (s): 4.53 H 11/10 14:53 WBC: 7.8 Hgb: 10.5 L Hct: 31.7 L Platelet: 165 Neutrophil %: 80.3 H Glucose Level: 111 H Glucose Level: 111 H Sodium Level: 141 Sodium Level: 141 Potassium Level: 4.6 Potassium Level: 4.6 BUN: 15.0 BUN: 15.0 Creatinine Lvl (s): 2.72 H Creatinine Lvl (s): 2.72 H EKG No qualifying data available. Assessment/Plan Frequent Mobitz type I Elevated protein likely secondary to supply/demand mismatch in the setting of missed hemodialysis Acute on chronic hypoxic respiratory failure secondary to missed hemodialysis and PNA Community-acquired pneumonia Delirium Chronic hypoxic respiratory failure on 4 L home oxygen ESRD on hemodialysis History of CAD s/p LAD PCI, moderate proximal RCA disease Hypertension Hyperlipidemia Obesity Chronic left bundle branch block Mild MS Plan Patient denies any further chest pain, troponins has downtrended likely type II [place] in setting of missing hemodialysis. She is having frequent Mobitz type I episodes on telemetry thus we will decreaseher Coreg to 3.125 twice daily which she can be discharged on. Surface echo although poor quality showing normal EF with an immobile aortic valve echodensity which could represent Lambl's however vegetation and fibroblastoma cannot be ruled out. Review of previous echo did not show this calcified echodensity in the past. Blood cultures have been negative. Continue with other cardiac meds. Follow-up with cardiology outpatient. Rest of management per primary team. Continue to monitor closely. Cardiology will sign off. Digitally Signed by YASMINE DICKENS MD on 11/11/2024 02:27 PM [id number] Hospital Discharge instructions Patient Education 11/11/2024 14:19:49 Community-Acquired Pneumonia, Adult Community-Acquired Pneumonia, Adult Pneumonia is a type of lung infection that causes swelling in the airways of the lungs. Mucus and fluid may also build up inside the airways. This may cause coughing and difficulty breathing. There are different types of pneumonia. One type can develop while a person is in a hospital. A different type is called community-acquired pneumonia. It develops in people who are not, and have not recently been, in the hospital or another type of health care facility. What are the causes? This condition may be caused by: Viruses. This is the most common cause of pneumonia. Bacteria. Community-acquired pneumonia is often caused by Streptococcus pneumoniae bacteria. These bacteria are often passed from one person to another by breathing in droplets from the cough or sneeze of an infected person. Fungi. This is the least common cause of pneumonia. What increases the risk? The following factors may make you more likely to develop this condition: Having a chronic disease, such as chronic obstructive pulmonary disease (COPD), asthma, congestive heart failure, cystic fibrosis, diabetes, or kidney disease. Having early-stage or late-stage HIV. Having sickle cell disease. Having had your spleen removed (splenectomy). Having poor dental hygiene. Having a medical condition that increases the risk of breathing in (aspirating) secretions from your own mouth and nose. Having a weakened body defense system (immune system). Being a smoker. Traveling to areas where pneumonia-causing germs commonly exist. Being around animal habitats or animals that have pneumonia-causing germs, including birds, bats, rabbits, cats, and farm animals. What are the signs or symptoms? Symptoms of this condition include: A dry cough. A wet (productive) cough. Fever. Sweating. Chest pain, especially when breathing deeply or coughing. Rapid breathing or difficulty breathing. Shortness of breath. Shaking chills. Fatigue. Muscle aches. How is this diagnosed? This condition may be diagnosed based on: Your medical history. A physical exam. You may also have tests, including: Chest X-rays. Tests of your blood oxygen level and other blood gases. Tests on blood, mucus (sputum), fluid around your lungs (pleural fluid), and urine. If your pneumonia is severe, other tests may be done to find the exact cause of your illness. How is this treated? Treatment for this condition depends on many factors, such as the cause of your pneumonia, the medicines you take, and other medical conditions that you have. For most adults, treatment and recovery from pneumonia may occur at home. In some cases, treatment must happen in a hospital. Treatment may include: Medicines that are given by mouth or through an IV, including: ?Antibiotic medicines, if the pneumonia was caused by bacteria. ?Antiviral medicines, if the pneumonia was caused by a virus. Being given extra oxygen. Respiratory therapy. Although rare, treating severe pneumonia may include: Using a machine to help you breathe (mechanical ventilation). This is done if you are not breathingwell on your own and you cannot maintain a safe blood oxygen level. Thoracentesis. This is a procedure to remove fluid from around one lung or both lungs to help you breathe better. Follow these instructions at home: Medicines Take [id number]-flbhfpy and prescription medicines only as told by your health care provider. ?Only take cough medicine if you are losing sleep. Be aware that cough medicine can prevent your body's natural ability to remove mucus from your lungs. If you were prescribed an antibiotic medicine, take it as told by your health care provider. Do notstop taking the antibiotic even if you start to feel better. General instructions Sleep in a semi-upright position at night. Try sleeping in a reclining chair, or place a few pillows under your head. Rest as needed and get at least 8 hours of sleep each night. Drink enough water to keep your urine pale yellow. This will help to thin out mucus secretions in your lungs. Eat a healthy diet that includes plenty of vegetables, fruits, whole grains, low-fat dairy products, and lean protein. Do not use any products that contain nicotine or tobacco, such as cigarettes, e- cigarettes, and chewing tobacco. If you need help quitting, ask your health care provider. Keep all follow-up visits as told by your health care provider. This is important. How is this prevented? You can lower your risk of developing community-acquired pneumonia by: Getting a pneumococcal vaccine. There are different types and schedules of pneumococcal vaccines. Ask your health care provider which option is best for you. Consider getting the vaccine if: ?You are older than 65 years of age. ?You are older than 19 years of age and are undergoing cancer treatment, have chronic lung disease,or have other medical conditions that affect your immune system. Ask your health care provider if this applies to you. Getting an influenza vaccine every year. Ask your health care provider which type of vaccine is best for you. Getting regular checkups from your dentist. Washing your hands often. If soap and water are not available, use hand plow and boring machine tender. Contact a health care provider if: You have a fever. You are losing sleep because you cannot control your cough with cough medicine. Get help right away if: You have worsening shortness of breath. You have increased chest pain. Your sickness becomes worse, especially if you are an older adult or have a weakened immune system. You cough up blood. Summary Pneumonia is an infection of the lungs. Community-acquired pneumonia develops in people who have not been in the hospital. It can be causedby bacteria, viruses, or fungi. This condition may be treated with antibiotics or antiviral medicines. Severe cases may require hospitalization, mechanical ventilation, and other procedures to drain fluid from the lungs. This information is not intended to replace advice given to you by your health care provider. Make sure you discuss any questions you have with your health care provider. Document Released: 03/16/2006 Document Revised: 11/11/2018 Document Reviewed: 11/11/2018 [employer] Patient Education 2020 [employer]. Follow Up Care 11/08/2024 16:08:03 With:OMID PENA Address: [address] [facility] [id number] [facility] [place] [address] [phone] Business (1) When:Within 1 Week(s) Comments:Please call the office to schedule a hospital follow up appointment. With:LEE CASH Address: [address] [facility] [place] [address]- Business (1) When:Within 1 Week(s) Comments:Please call the office to schedule a hospital follow up appointment. With:[facility] Address: When: Unknown Comments:[facility]- [facility] to call to give information, establish need for ongoing symptom management and future care planning once patient is discharged home from the hospital. If you have not been contacted in 7 days please call the office at [phone]. Thank You! With:[facility] - [address] [place] [address] Any questions or concerns please [phone] Address: When:1-2 days With:DENISSE SUTTON APRN-[facility] Address: [address] [facility] [place] [address]- [phone] When:1-2 days Comments:Please call the office to schedule a hospital follow up appointment. [facility] 08-15-2025 Discharge summary Date of Service 11/11/2024 Discharge Diagnosis Pneumonia (J18.9 - ICD-10-CM) Respiratory failure (J96.90 - ICD-10-CM) Acute on chronic hypoxic respiratory failure with increased work of breathing Hyperkalemia, resolved Community-acquired pneumonia, concern for gram negatives Elevated troponin, likely supply/demand mismatch per Cardiology Abnormal echocardiogram with concern for echodensity, cultures negative to date, follow up with PCPand Cardiology ESRD on hemodialysis, missed HD 11/08 Delirium secondary to above, improved Type 2 diabetes mellitus HFpEF Diabetic neuropathy Coronary artery disease Hypertension Dyslipidemia Anxiety, denies SI/HI Hospital Course 58 years old female PMH ESRD on hemodialysis, chronic hypoxic respiratory failure on 4 L of oxygen via nasal cannula at home, type 2 diabetes mellitus on insulin, HFpEF, class III obesity, diabetic neuropathy, general anxiety disorder, coronary artery disease, hypertension, dyslipidemia presented to [facility] ER with a chief concern for chest pressure, nausea/vomiting, cough and shortness of breath. Patient initially presented to [facility] ED with complaints of cough, nausea, vomiting andchest pressure. Chest x-ray showed finding of congestion/edema versus developing infectious or inflammatory process. White count was 14,000 with 88% neutrophils. BUN/creatinine was 62/7.17, potassiumwas elevated at 5.6. Troponin were not elevated. COVID/flu/RSV PCR was negative. Patient received doses of morphine and Zofran along with oral Lokelma for hyperkalemia however patient refused Lokelma. Patient was felt stable for discharge for dialysis early tomorrow morning and she was prescribed Zithromax, Zofran and Tessalon Perles. Patient went home and presented to [facility] ER with persistent shortness of breath, cough and nausea/vomiting. Initial evaluation: saturating well on home 4 Lof oxygen by nasal, appeared to be encephalopathic, she was oriented to place and person but not totime. CBC showed white count of 12,400 with left shift, hemoglobin of 10.7. CMP showed BUN/creatinine of 63/7.59, potassium of 5.7. proBNP of 14,000, troponin trended upward from 46-1 69. Chest x-raydone at [facility] showed airspace opacities most pronounced in the right lateral lung favoring pneumonia. EKG showed sinus rhythm with left bundle branch block with QTc of 451 ms. Patient placed on broad-spectrum IV antibiotics for pneumonia concern for gram-negative's, cultures and atypical workup obtained and negative to date. Patient with rapid response 11/09 secondary to increased lethargyand work of breathing, discussed with rapid response team and medical staff. ABG completed demonstrating CO2 retention, likely contributing to altered mental state, converted to BiPAP, consultation to pulmonary team for review and recommendations input appreciated, recommended continuation of therapy. Patient's respiratory status improved throughout the hospitalization. Mentation also improved tobaseline as per family. Cardiology team on consult for elevated troponin, input appreciated echocardiogram demonstrating concern for valvular echodensity, management as per cardiology team, no plans for urgent cardiac imaging or ischemic workup at this time, recommend outpatient follow-up, medications adjusted during the hospitalization reflected on the discharge medication reconciliation. Discont inued medications - most of these medications patient indicated she was not taking at home, antihypertensives may be restarted in the outpatient setting in the short-term pending clinical course. Nephrology on consult for end-stage renal disease underwent hemodialysis throughout the hospital stay with improvement in volume status. 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 Patient seen and examined at bedside today in the presence of family at patient's request. Chart reviewed. Discussed with medical staff. Patient sitting up at bedside denies chest pain, endorses improvement in shortness of breath, endorses improved dry cough, no hemoptysis. Patient weaned down to home oxygen 2 L/min nasal cannula saturating 95%. Patient denies abdominal pain, nausea/vomiting. Patient tolerant oral intake and ambulating near baseline mobility in the hospital room, states overall feels much improved and is requesting discharge to home today. Called and updated/discussed with additional family including son and sister at patient's request who state understanding and agreement with plan. Discussed with patient/family regarding recommended follow-up with providers and medication list atdischarge. Discussed warning signs that should prompt patient to return to the emergency department or seek immediate medical attention, including but not limited to worsening of symptoms. Patient/family states understanding and appreciation for care. Allergies NKA Consults Consult to Palliative Care - Ordered -- 11/09/24 13:04:00 EDT, discharge planning emotional support other symptom management, MD SABINE. NATALIE Matthews, Positive palliative care score Consult to Physician - Ordered -- 11/08/24 20:46:00 EDT, ROSARIO CORREA MD, Routine, ESRD on HD, Hyperkalemia Consult to Physician - Ordered -- 11/08/24 20:46:00 EDT, PAUL PAL MD, Routine, Elevated Troponins Consult to Physician - Ordered -- 11/09/24 10:04:00 EDT, ANALIA CERVANTES MD, Routine, bipap management /PNA Imaging Results and Diagnostics XR Chest 1 View Result Date: November 09, 2024 Verified By: GELACIO HE MD CLINICAL STATEMENT: IMPRESSION: Peripheral airspace disease in the right lung is slightly improved. Followto resolution CT Head or Brain w/o Contrast Result Date: November 08, 2024 Verified By: NAWAF CHOU MD CLINICAL STATEMENT: IMPRESSION: No acute intracranial abnormality. XR Chest 1 View Result Date: November 08, 2024 Verified By: TONY MANUEL MD CLINICAL STATEMENT: IMPRESSION: Airspace opacities most pronounced in the right lateral lung. Asymmetric appearance favors pneumonia and/or aspiration over edema. Small effusions not excluded. Physical Exam Vitals and Measurements T: 36.8 C (Oral) TMIN: 36.8 C (Oral) TMAX: 37.2 C (Oral) HR: 60 (Monitored) RR: 16 BP: 134/61 SpO2:95% Weight Dosing Weight: 107 kg (11/10/24) Dosing Weight: 109.8 kg (11/10/24) General: AAOx4, NAD HEENT: No Icterus Cardiac: S1, S2, regular Lungs: Improved air movement bilaterally, no wheeze, no use of accessory muscles Abdomen: Soft, non tender, bowel sounds present Extremities: 2+ distal pulses, moving all 4 extremities freely Pending Labs and Studies Final cultures pending at the time of this dictation Consider follow-up chest x-ray in 4 to 6 weeks to document resolution of infiltrates. Code Status Code Status - Ordered -- 11/08/24 20:46:00 EDT, Full Code, Constant Order Admission Date 11/08/2024 Discharge Date 11/11/2024 Patient Instructions Thank you for choosing [facility] - it has been a pleasure taking part in your medical care. Please follow up with your Primary Care Physician (PCP) as soon as possible after your discharge andany specialists as noted within 1-2 weeks for further evaluation. If your symptoms should persist or worsen, please return immediately to the nearest Emergency Room for further care. If you have any questions about the care you received please call us anytime at . You were evaluated by pulmonary/lung team, cardiology/heart team, nephrology/kidney team, and palliative care team during the hospital stay. You received dialysis treatments during the hospitalization with improvement in volume status. You were treated for pneumonia with improvement in symptoms, please follow-up with PCP for final culture results. Please continue medications as instructed and home oxygen as previously instructed. Please call to schedule follow-up with PCP and specialist within 1-2 business days. Medications New Prescription amoxicillin-clavulanate (amoxicillin-clavulanate 500 mg-125 mg oral tablet)1 tab(s) by mouth every 12 hours for 7 Days. Refills: 0. Changed carvedilol (Coreg 3.125 mg oral tablet)1 tab(s) by mouth twice daily with meals. Refills: 0. Unchanged acetaminophen (acetaminophen 325 mg oral tablet)2 tab(s) by mouth every 6 hours as needed as neededfor pain. allopurinol (allopurinol 100 mg oral tablet)1 tab(s) by mouth once a day for 90 Days. Refills: 3. aspirin (aspirin 81 mg oral delayed release tablet)1 tab(s) by mouth once a day. atorvastatin (atorvastatin 80 mg oral tablet)1 tab(s) by mouth once a day for 90 Days. Refills: 3. calcium acetate (calcium acetate 667 mg oral capsule)2 cap by mouth three (3) times a day. with meals. calcium carbonate (Tums E-X 750 mg oral tablet, chewable)1 tab(s) Chewed two (2) times a day. Scheduled in between meals. cholecalciferol (Vitamin D3 50 mcg (2000 intl units) oral capsule)1 tab(s) by mouth every day. Refills: 11. DME (Blood Glucose Test Machine)True Metrix Glucometer. Use glucometer daily as directed for blood sugar checks. Dispense insurance preferred device. Refills: 0. DME (Blood Glucose Test Strips)True Metrix Test Strips Use one test strip to check blood sugar oncedaily as directed. Dispense insurance preferred test strips. 1 box of 100. Refills: 6. DME (Blood Pressure Cuff)Check and Log Blood Pressure Daily. Refills: 0. DME (DME MISCellaneous)One rollator. DX stroke. Refills: 0. DME (DME MISCellaneous)One touch Ultra2 glucometer. Dispense #1. 0 refills. Use as directed to check blood sugar.. Refills: 0. DME (DME MISCellaneous)Discontinue home o2--patient no longer needing. .. Refills: 0. DME (DME MISCellaneous)Freestyle Test Strips. Use to check blood sugar 4 times daily with insulin administrations. #1 box of 100 strips. Refills: 11. DME (FreeStyle Navid 3 [place])Use reader to scan sensor once with every new sensor. Keep reader within 33 feet of the sensor and transmitter for daily blood sugar checks. Refills: 0. DME (FreeStyle Navid 3+ Sensors)Place once sensor to the back of the upper arm every 15 days. Use reader or phone toby for daily blood sugar checks. 1 month supply. Refills: 6. DME (Lancets)True Metrix Lancets. Use one lancet to ponce finger for blood sugar testing once daily as directed. Dispense insurance preferred lancets. Refills: 6. DME (Pen needles 5 mm)qs for 1 month supply. Refills: 11. DME (Pen needles)qs for 1 month supply. 31 G x 8 mm 5" use as diecte. Refills: 11. ezetimibe (Zetia 10 mg oral tablet)1 tab(s) by mouth once a day. Refills: 3. gabapentin (gabapentin 100 mg oral capsule)1 cap by mouth two (2) times a day for 30 Days. Refills:5. insulin aspart (Novolog) (NovoLOG FlexPen 100 units/mL injectable solution)5 unit(s) Subcutaneous two (2) times daily before meals. before lunch and dinner.If blood sugar <80 do not give.. insulin glargine (Toujeo Max SoloStar 300 units/mL subcutaneous solution)20 unit(s) Subcutaneous once a day. Refills: 11. lidocaine-prilocaine topical (lidocaine-prilocaine 2.5%-2.5% topical cream)1 application Topical once. Once before dialysis. melatonin (melatonin 5 mg oral tablet)1 tab(s) by mouth daily at bedtime as needed as needed for insomnia. Misc Medication (ONETOUCH DELICA PLUS LANCETS EXTRA FINE 33G MISC) multivitamin (Nephro-Todd oral tablet)1 tab(s) by mouth once a day. multivitamin (Potter Caps)1 cap by mouth once a day. ondansetron (ondansetron 4 mg oral tablet, disintegrating)1 tab(s) by mouth every 6 hours as neededNausea/Vomiting. Refills: 0. rOPINIRole (rOPINIRole 0.25 mg oral tablet)1 tab(s) by mouth two (2) times a day. Discontinued amLODIPine (amLODIPine 10 mg oral tablet)1 tab(s) by mouth once a day. Refills: 3. benzonatate (Tessalon Perles 100 mg oral capsule)1 cap by mouth every 8 hours as needed as needed for cough. Refills: 0. doxycycline (doxycycline hyclate 100 mg oral capsule)1 cap by mouth two (2) times a day for 10 Days. Refills: 0. hydrALAZINE (hydrALAZINE 100 mg oral tablet)1 tab(s) by mouth three (3) times a day. Refills: 3. nystatin topical (nystatin 100,000 units/g topical powder)1 application Topical two (2) times a day. torsemide (torsemide 100 mg oral tablet)0.5 tab(s) by mouth two (2) times a day. Refills: 5. venlafaxine (venlafaxine 112.5 mg oral tablet, extended release)1 tab(s) by mouth once a day. with food. Refills: 3. Follow Up Follow Up with OMID PENA When:In 1 week Where:[address] [facility] [place] [address]- [phone] Business (1) Additional Information: Please call the office to schedule a hospital follow up appointment. Follow Up with LEE CASH When:In 1 week Where:[address] [facility] [place] [address]- [facility] (1) Additional Information: Please call the office to schedule a hospital follow up appointment. Follow Up with [facility] Additional Information: [facility] to call to give information, establish need for ongoing symptom management and future care planning once patient is discharged home from the hospital. If you have not been contacted in 7 days please call the office at [phone]. Thank You! Follow Up with [facility] - [address] [place] [address] Any questions or concerns please call When:Within 1-2 days Follow Up with DENISSE SUTTON APRN-NILES When:Within 1-2 days [facility] [facility] [place], [place] [id number]- [phone] Additional Information: Please call the office to schedule a hospital follow up appointment. Follow Up Appointments Consult Home Health - Aide - Ordered -- 11/11/24 14:17:00 EDT, Aide Reason: Bathing assistance Consult Home Health - OT - Ordered -- 11/11/24 14:17:00 EDT, Home Therapy Order: OT Eval & Treat, Home Therapy Instruction: Full weight bearing, Reason: General Debility Consult Home Health - PT - Ordered -- 11/11/24 14:17:00 EDT, Home Therapy Order: PT Eval & Treat, Reason: General Debility, Home Therapy Instruction: Full weight bearing Consult Home Health - RN - Ordered -- 11/11/24 14:17:00 EDT, Reason: Disease management Consult Home Health - Commercial [employer] Lead - Ordered -- 11/11/24 14:17:00 EDT, Reason: Home situation Follow Up Labs/Studies Discharge Labs No Follow-up Labs Discharge Studies No Follow-up Studies Discharge Diet Discharge Diet - Ordered -- No changes were made to your diet during your hospital stay. Please resume your pre hospitalization diet on discharge., 11/11/24 14:17:00 EDT Discharge Activity Discharge Activity - Ordered -- Activity As Tolerated, 11/11/24 14:17:00 EDT Condition on Discharge Fair, improved Discharge Disposition Home Information Provided To Patient, multiple family at patient's request, and medical staff Time Spent 36 minutes Digitally Signed by KYLE LOPES MD on 11/11/2024 02:47 PM [id number] Palliative care Progress note Date of Service 11/11/24 Code Status Code Status - Ordered -- 11/08/24 20:46:00 EDT, Full Code, Constant Order Chief Complaint chest pain and sob started today. middle of chest rating it an 8 History of Present Illness On initial evaluation, patient is ambulating with staff in the hallway on nasal cannula without difficulty. I joined her in her room after she was finished with her walk and she was visiting with sheyla Cloud. She is sitting on the edge of the bed in no acute distress. She tells me that she is hopeful that since she has been able to walk around well that she might get to go home soon. Her brot her reiterates her story from yesterday that her son may not ever see her again if she doesn't go to rehab, we reviewed that PT and OT make the recommendations about discharge disposition and she is walking well in the hallway and likely won't require stay at a facility but I am not certain when discharge will be. The patient denies any complaints at this time. Medications Medications (19) Active Scheduled: (9) aspirin 81 mg Chewable 81 mg 1 tab(s), Oral, qDay atorvastatin 40 mg tablet 40 mg 1 tab(s), Oral, qDay azithromycin IV 500 mg 5 mL, IV Piggyback, qDay carvedilol 3.125 mg tablet 3.125 mg 1 tab(s), Oral, BIDM cefTRIAXone IVP syringe 2 gram(s) 20 mL, IV Push (INT), qDay heparin 5,000 units/mL (1 mL) vial 5,000 unit(s) 1 mL, Subcutaneous, q8h insulin glargine 10 unit(s) 0.1 mL, Subcutaneous (INT), qHS insulin lispro 100 units/mL Soln (3 mL) Give 0-5 units/dose, Subcutaneous, TIDAC multivitamin (Nephrocaps) Vitamin B Complex with C and Folic Acid Capsule 1 cap(s), Oral, qDay Continuous: (0) PRN: (10) acetaminophen 325 mg Tablet 650 mg 2 tab(s), Oral, q6hr acetaminophen 325 mg Tablet 650 mg 2 tab(s), Oral, q4h acetaminophen 650 mg Suppository 650 mg 1 supp, Rectal, q4h Al hydrox/Mg hydrox/simethicone 200-200-20 mg/5 mL Susp UD 30 mL, Oral, q2h albuterol - ipratropium 2.5 mg-0.5 mg/3 mL Inhal Daria UD 3 mL, Inhalation, q4hRT bisacodyl 5 mg EC tablet 10 mg 2 tab(s), Oral, qDay dextrose 50% Solution Disp syringe 50 mL 25 gram(s) 50 mL, IV Push, AsDirected docusate-senna (Senokot S) 50 mg-8.6 mg Tablet 1 tab(s), Oral, BID melatonin 3 mg tablet 3 mg 1 tab(s), Oral, qHS ondansetron 2 mg/ 1 mL 2 mL INJ 4 mg 2 mL, IV Push, q6hr Physical Exam General: Awake alert no acute respiratory distress Respiratory: Easy and even respirations, normal work of breathing, Nasal cannula in place GI: obese, soft, nontender to palpation Neuro: Alert oriented x 3, nonfocal exam Mood: affect labile, insight poor Vitals and Measurements T: 36.8 C (Oral) TMIN: 36.8 C (Oral) TMAX: 37.2 C (Oral) HR: 60 (Monitored) RR: 16 BP: 134/61 SpO2:95% Weight Dosing Weight: 107 kg (11/10/24) Dosing Weight: 109.8 kg (11/10/24) Labs 11/11 05:02 WBC: 6.8 Hgb: 9.6 L Hct: 28.5 L Platelet: 147 L Neutrophil %: 69.4 Glucose Level: 116 H Sodium Level: 140 Potassium Level: 4.5 BUN: 30.0 H Creatinine Lvl (s): 4.53 H 11/10 14:53 WBC: 7.8 Hgb: 10.5 L Hct: 31.7 L Platelet: 165 Neutrophil %: 80.3 H Glucose Level: 111 H Glucose Level: 111 H Sodium Level: 141 Sodium Level: 141 Potassium Level: 4.6 Potassium Level: 4.6 BUN: 15.0 BUN: 15.0 Creatinine Lvl (s): 2.72 H Creatinine Lvl (s): 2.72 H Imaging Results and Diagnostics pertinent labs and radiology data reviewed Assessment/Plan Palliative Care encounter for a 58 year old female with a past medical history of ESRD on hemodialysis, chronic hypoxic respiratory failure on 4 L of oxygen via nasal cannula at home, type 2 diabetesmellitus on insulin, HFpEF, class III obesity, diabetic neuropathy, general anxiety disorder, coronary artery disease, hypertension, dyslipidemia presented to [facility] ER with a chief concernfor chest pressure, nausea/vomiting, cough and shortness of breath admitted for acute on chronic hypoxic respiratory failure secondary to missed dialysis and pneumonia initially requiring BiPAP. Hospital course complicated by elevated troponin with cardiology following. Palliative Care consulted asthe result of a positive palliative care screen. Goals of Care: CODE STATUS: Full Code Advanced Directives: None on file. NOK/Surrogate Decision Maker is consensus opinion of both children. Spoke with CM/SW. Plan is for discharge home with HHC to patient's sisters home. June states that she will not be ready to bring the patient home today as they were not expecting her to come home quite so quickly. I attempted again to reach out to June to discuss home palliative care. I will senda referral to Home Palliative Care for informational call on discharge to arrange services if they are agreeable. Palliative Care will sign off as patient is receiving goal congruent care without unmet inpatient needs. Primary to reconsult if patient would benefit from additional palliative care support while admitted. Digitally Signed by KOURTNEY HERBERT on 11/11/2024 02:32 PM [id number] Cardiology Progress note Date of Service 11/11/24 Subjective Patient seen examined at bedside. No acute overnight events. States that she would like to go home today. Telemetry showing frequent Mobitz type I and short run of NSVT. Objective Vitals and Measurements T: 36.8 C (Oral) TMIN: 36.8 C (Oral) TMAX: 37.2 C (Oral) HR: 60 (Monitored) RR: 16 BP: 134/61 SpO2:95% Intake and Output 7AM Yesterday to 7AM Today Intake and Output (Last 24 hours) Intake Oral Intake 400.00 Output Urinary Catheter Output: 100.00 Stool Count 0.00 Urine Count 0.00 Emesis Count 0.00 Total Summary Total Intake 400.00 Total Output 100.00 Fluid Balance 300.00 Physical Exam GENERAL: Pt is comfortable in bed. NECK: No JVD or Carotid Bruit CVS: S1 & S2 audible, Regular Rate and Rhythm, No Murmurs LUNG: Bronchial breath sounds bilateral GI: + BS, Abdomen is Soft EXTREMITIES: Mild lower extremity edema SKIN: Warm & Dry Weight Dosing Weight: 107 kg (11/10/24) Dosing Weight: 109.8 kg (11/10/24) Medications Medications (19) Active Scheduled: (9) aspirin 81 mg Chewable 81 mg 1 tab(s), Oral, qDay atorvastatin 40 mg tablet 40 mg 1 tab(s), Oral, qDay azithromycin IV 500 mg 5 mL, IV Piggyback, qDay carvedilol 3.125 mg tablet 3.125 mg 1 tab(s), Oral, BIDM cefTRIAXone IVP syringe 2 gram(s) 20 mL, IV Push (INT), qDay heparin 5,000 units/mL (1 mL) vial 5,000 unit(s) 1 mL, Subcutaneous, q8h insulin glargine 10 unit(s) 0.1 mL, Subcutaneous (INT), qHS insulin lispro 100 units/mL Soln (3 mL) Give 0-5 units/dose, Subcutaneous, TIDAC multivitamin (Nephrocaps) Vitamin B Complex with C and Folic Acid Capsule 1 cap(s), Oral, qDay Continuous: (0) PRN: (10) acetaminophen 325 mg Tablet 650 mg 2 tab(s), Oral, q6hr acetaminophen 325 mg Tablet 650 mg 2 tab(s), Oral, q4h acetaminophen 650 mg Suppository 650 mg 1 supp, Rectal, q4h Al hydrox/Mg hydrox/simethicone 200-200-20 mg/5 mL Susp UD 30 mL, Oral, q2h albuterol - ipratropium 2.5 mg-0.5 mg/3 mL Inhal Daria UD 3 mL, Inhalation, q4hRT bisacodyl 5 mg EC tablet 10 mg 2 tab(s), Oral, qDay dextrose 50% Solution Disp syringe 50 mL 25 gram(s) 50 mL, IV Push, AsDirected docusate-senna (Senokot S) 50 mg-8.6 mg Tablet 1 tab(s), Oral, BID melatonin 3 mg tablet 3 mg 1 tab(s), Oral, qHS ondansetron 2 mg/ 1 mL 2 mL INJ 4 mg 2 mL, IV Push, q6hr Lab Results 11/11 05:02 WBC: 6.8 Hgb: 9.6 L Hct: 28.5 L Platelet: 147 L Neutrophil %: 69.4 Glucose Level: 116 H Sodium Level: 140 Potassium Level: 4.5 BUN: 30.0 H Creatinine Lvl (s): 4.53 H 11/10 14:53 WBC: 7.8 Hgb: 10.5 L Hct: 31.7 L Platelet: 165 Neutrophil %: 80.3 H Glucose Level: 111 H Glucose Level: 111 H Sodium Level: 141 Sodium Level: 141 Potassium Level: 4.6 Potassium Level: 4.6 BUN: 15.0 BUN: 15.0 Creatinine Lvl (s): 2.72 H Creatinine Lvl (s): 2.72 H EKG No qualifying data available. Assessment/Plan Frequent Mobitz type I Elevated protein likely secondary to supply/demand mismatch in the setting of missed hemodialysis Acute on chronic hypoxic respiratory failure secondary to missed hemodialysis and PNA Community-acquired pneumonia Delirium Chronic hypoxic respiratory failure on 4 L home oxygen ESRD on hemodialysis History of CAD s/p LAD PCI, moderate proximal RCA disease Hypertension Hyperlipidemia Obesity Chronic left bundle branch block Mild MS Plan Patient denies any further chest pain, troponins has downtrended likely type II [place] in setting of missing hemodialysis. She is having frequent Mobitz type I episodes on telemetry thus we will decreaseher Coreg to 3.125 twice daily which she can be discharged on. Surface echo although poor quality showing normal EF with an immobile aortic valve echodensity which could represent Lambl's however vegetation and fibroblastoma cannot be ruled out. Review of previous echo did not show this calcified echodensity in the past. Blood cultures have been negative. Continue with other cardiac meds. Follow-up with cardiology outpatient. Rest of management per primary team. Continue to monitor closely. Cardiology will sign off. Digitally Signed by YASMINE DICKENS MD on 11/11/2024 02:27 PM [id number] Note Discharge Instructions Thank you for allowing [facility] to assist you with your healthcare needs. The following is importantdischarge information regarding your hospital visit. Your Care Team DENISSE SUTTON APRN-SAP PORTAL DEVELOPER Your Diagnosis Pneumonia Respiratory failure What to do next Scheduled Follow-Up Appointments Appointment Type When With Where Contact Information StatusMEDS - Diabetic Individual Visit 11/16/2024 04:15 PM EDT [place] Diet Visits [phone] Confirmed PC OV 11/22/2024 04:00 PM EDT DENISSE SUTTON [facility] Confirmed Follow Up Appointments Follow Up with [facility] - [address] [place] [id number] Any questions or concerns please call When:Within 1-2 days Follow Up with DENISSE SUTTON When:Within 1-2 days Where:[address] [place], [place] [id number]- [phone] Additional Information: Please call the office to schedule a hospital follow up appointment. The Following Activity and Diet Have Been Ordered for You Discharge Activity - Ordered -- Activity As Tolerated, 11/11/24 14:17:00 EDT Discharge Diet - Ordered -- No changes were made to your diet during your hospital stay. Please resume your pre hospitalization diet on discharge., 11/11/24 14:17:00 EDT The Following Equipment Has Been Ordered for You No qualifying data available. The Following Treatments Have Been Ordered for You Discharge Labs No qualifying data available. Discharge Radiology No qualifying data available. Other Therapies No qualifying data available. Post Acute Orders No qualifying data available. Someone Will Contact You Regarding These Home Health Referrals Consult Home Health - Aide - Ordered -- 11/11/24 14:17:00 EDT, Aide Reason: Bathing assistance Consult Home Health - OT - Ordered -- 11/11/24 14:17:00 EDT, Home Therapy Order: OT Eval & Treat, Home Therapy Instruction: Full weight bearing, Reason: General Debility Consult Home Health - PT - Ordered -- 11/11/24 14:17:00 EDT, Home Therapy Order: PT Eval & Treat, Reason: General Debility, Home Therapy Instruction: Full weight bearing Consult Home Health - RN - Ordered -- 11/11/24 14:17:00 EDT, Reason: Disease management Consult Home Health - Commercial Credit Lead - Ordered -- 11/11/24 14:17:00 EDT, Reason: Home situation Allergies NKA Medications Please ask your primary doctor or pharmacist before taking any other medication not listed, including over the counter drugs, herbal medications, vitamins and or supplements as they may interact withyour home medications. What How Much When Why Instructions Last Dose New amoxicillin-clavulanate (amoxicillin-clavulanate 500 mg-125 mg oral tablet) 1 tab(s) by mouth Every 12 hours Duration: 7 Days Pickup at [place] [address] Changed carvedilol (Coreg 3.125 mg oral tablet) 1 tab(s) by mouth Twice daily with meals Pickup at [place] [address] Unchanged acetaminophen (acetaminophen 325 mg oral tablet) 2 tab(s) by mouth Every 6 hours as needed for as needed for pain Unchanged allopurinol (allopurinol 100 mg oral tablet) 1 tab(s) by mouth Once a day Duration: 90 Days Unchanged aspirin (aspirin 81 mg oral delayed release tablet) 1 tab(s) by mouth Once a day Unchanged atorvastatin (atorvastatin 80 mg oral tablet) 1 tab(s) by mouth Once a day Duration: 90 Days Unchanged calcium acetate (calcium acetate 667 mg oral capsule) 2 cap by mouth Three (3) times a day with meals Unchanged calcium carbonate (Tums E-X 750 mg oral tablet, chewable) 1 tab(s) Chewed Two (2) times a day Scheduled in between meals Unchanged cholecalciferol (Vitamin D3 50 mcg (2000 intl units) oral capsule) 1 tab(s) by mouth Every day Unchanged DME (Blood Glucose Test Machine) See instructions True Metrix Glucometer. Use glucometer daily as directed for blood sugar checks. Dispense insurancepreferred device Unchanged DME (Blood Glucose Test Strips) See instructions True Metrix Test Strips Use one test strip to check blood sugar once daily as directed. Dispense insurance preferred test strips. 1 box of 100 Unchanged DME (Blood Pressure Cuff) See instructions [...] #1 box of 100 strips Unchanged DME (FreeStyle Navid 3 [place]) See instructions Use reader to scan sensor once with every new sensor. Keep reader within 33 feet of the sensor and transmitter for daily blood sugar checks Unchanged DME (FreeStyle Navid 3+ Sensors) See instructions Place once sensor to the back of the upper arm every 15 days. Use reader or phone toby for daily blood sugar checks. 1 month supply Unchanged DME (Lancets) See instructions True Metrix Lancets. Use one lancet to ponce finger for blood sugar testing once daily as directed. Dispense insurance preferred lancets Unchanged DME (Pen needles 5 mm) See instructions qs for 1 month supply Unchanged DME (Pen needles) See instructions qs for 1 month supply. 31 G x 8 mm " use as diecte Unchanged ezetimibe (Zetia 10 mg oral tablet) 1 tab(s) by mouth Once a day Unchanged gabapentin (gabapentin 100 mg oral capsule) 1 cap by mouth Two (2) times a day Leg pain Duration: 30 Days Unchanged insulin aspart (Novolog) (NovoLOG FlexPen 100 units/ mL injectable solution) 5 unit(s) Subcutaneous Two (2) times daily before meals before lunch and dinner.If blood sugar <80 do not give. Unchanged insulin glargine (Toujeo Max SoloStar 300 units/ mL subcutaneous solution) 20 unit(s) Subcutaneous Once a day Unchanged lidocaine-prilocaine topical (lidocaine-prilocaine 2.5%-2.5% topical cream) 1 application Topical Once Once before dialysis Unchanged melatonin (melatonin 5 mg oral tablet) 1 tab(s) by mouth Daily at bedtime as needed for as needed for insomnia Unchanged Misc Medication (ONETOUCH DELICA PLUS LANCETS EXTRA FINE 33G MISC) Unchanged multivitamin (Nephro-Todd oral tablet) 1 tab(s) by mouth Once a day Unchanged multivitamin (Potter Caps) 1 cap by mouth Once a day Unchanged ondansetron (ondansetron 4 mg oral tablet, disintegrating) 1 tab(s) by mouth Every 6 hours as needed for Nausea/Vomiting Unchanged rOPINIRole (rOPINIRole 0.25 mg oral tablet) 1 tab(s) by mouth Two (2) times a day Pharmacy Information [facility] [place] - [address]: [address] [place], [place] [id number] [phone] What How Much When Comments Stop Taking amLODIPine (amLODIPine 10 mg oral tablet) 1 tab(s) by mouth Once a day Stop Taking benzonatate (Tessalon Perles 100 mg oral capsule) 1 cap by mouth Every 8 hours as needed for as needed for cough Stop Taking doxycycline (doxycycline hyclate 100 mg oral capsule) 1 cap by mouth Two (2) times a day Duration: 10 Days Stop Taking hydrALAZINE (hydrALAZINE 100 mg oral tablet) 1 tab(s) by mouth Three (3) times a day Stop Taking nystatin topical (nystatin 100,000 units/ g topical powder) 1 application Topical Two (2) times a day Stop Taking torsemide (torsemide 100 mg oral tablet) 0.5 tab(s) by mouth Two (2) times a day Stop Taking venlafaxine (venlafaxine 112.5 mg oral tablet, extended release) 1 tab(s) by mouth Once a day with food Please take this list to your next doctor s visit. Bring all medications you take, including over the counter medications, herbals and other supplements with you to your doctor s visit. Patients and families are reminded to discard old lists and to update any records with all medication providers or retail pharmacies. Education Materials Community-Acquired Pneumonia, Adult Pneumonia is a type of lung infection that causes swelling in the airways of the lungs. Mucus and fluid may also build up inside the airways. This may cause coughing and difficulty breathing. There are different types of pneumonia. One type can develop while a person is in a hospital. A different type is called community-acquired pneumonia. It develops in people who are not, and have not recently been, in the hospital or another type of health care facility. What are the causes? This condition may be caused by: Viruses. This is the most common cause of pneumonia. Bacteria. Community-acquired pneumonia is often caused by Streptococcus pneumoniae bacteria. These bacteria are often passed from one person to another by breathing in droplets from the cough or sneeze of an infected person. Fungi. This is the least common cause of pneumonia. What increases the risk? The following factors may make you more likely to develop this condition: Having a chronic disease, such as chronic obstructive pulmonary disease (COPD), asthma, congestive heart failure, cystic fibrosis, diabetes, or kidney disease. Having early-stage or late-stage HIV. Having sickle cell disease. Having had your spleen removed (splenectomy). Having poor dental hygiene. Having a medical condition that increases the risk of breathing in (aspirating) secretions from your own mouth and nose. Having a weakened body defense system (immune system). Being a smoker. Traveling to areas where pneumonia-causing germs commonly exist. Being around animal habitats or animals that have pneumonia-causing germs, including birds, bats, rabbits, cats, and farm animals. What are the signs or symptoms? Symptoms of this condition include: A dry cough. A wet (productive) cough. Fever. Sweating. Chest pain, especially when breathing deeply or coughing. Rapid breathing or difficulty breathing. Shortness of breath. Shaking chills. Fatigue. Muscle aches. How is this diagnosed? This condition may be diagnosed based on: Your medical history. A physical exam. You may also have tests, including: Chest X-rays. Tests of your blood oxygen level and other blood gases. Tests on blood, mucus (sputum), fluid around your lungs (pleural fluid), and urine. If your pneumonia is severe, other tests may be done to find the exact cause of your illness. How is this treated? Treatment for this condition depends on many factors, such as the cause of your pneumonia, the medicines you take, and other medical conditions that you have. For most adults, treatment and recovery from pneumonia may occur at home. In some cases, treatment must happen in a hospital. Treatment may include: Medicines that are given by mouth or through an IV, including: ? Antibiotic medicines, if the pneumonia was caused by bacteria. ? Antiviral medicines, if the pneumonia was caused by a virus. Being given extra oxygen. Respiratory therapy. Although rare, treating severe pneumonia may include: Using a machine to help you breathe (mechanical ventilation). This is done if you are not breathingwell on your own and you cannot maintain a safe blood oxygen level. Thoracentesis. This is a procedure to remove fluid from around one lung or both lungs to help you breathe better. Follow these instructions at home: Medicines Take [id number]-nnitsvu and prescription medicines only as told by your health care provider. ? Only take cough medicine if you are losing sleep. Be aware that cough medicine can prevent your body's natural ability to remove mucus from your lungs. If you were prescribed an antibiotic medicine, take it as told by your health care provider. Do notstop taking the antibiotic even if you start to feel better. General instructions Sleep in a semi-upright position at night. Try sleeping in a reclining chair, or place a few pillows under your head. Rest as needed and get at least 8 hours of sleep each night. Drink enough water to keep your urine pale yellow. This will help to thin out mucus secretions in your lungs. Eat a healthy diet that includes plenty of vegetables, fruits, whole grains, low-fat dairy products, and lean protein. Do not use any products that contain nicotine or tobacco, such as cigarettes, e- cigarettes, and chewing tobacco. If you need help quitting, ask your health care provider. Keep all follow-up visits as told by your health care provider. This is important. How is this prevented? You can lower your risk of developing community-acquired pneumonia by: Getting a pneumococcal vaccine. There are different types and schedules of pneumococcal vaccines. Ask your health care provider which option is best for you. Consider getting the vaccine if: ? You are older than 65 years of age. ? You are older than 19 years of age and are undergoing cancer treatment, have chronic lung disease, or have other medical conditions that affect your immune system. Ask your health care provider if this applies to you. Getting an influenza vaccine every year. Ask your health care provider which type of vaccine is best for you. Getting regular checkups from your dentist. Washing your hands often. If soap and water are not available, use hand plow and boring machine tender. Contact a health care provider if: You have a fever. You are losing sleep because you cannot control your cough with cough medicine. Get help right away if: You have worsening shortness of breath. You have increased chest pain. Your sickness becomes worse, especially if you are an older adult or have a weakened immune system. You cough up blood. Summary Pneumonia is an infection of the lungs. Community-acquired pneumonia develops in people who have not been in the hospital. It can be causedby bacteria, viruses, or fungi. This condition may be treated with antibiotics or antiviral medicines. Severe cases may require hospitalization, mechanical ventilation, and other procedures to drain fluid from the lungs. This information is not intended to replace advice given to you by your health care provider. Make sure you discuss any questions you have with your health care provider. Document Released: 03/16/2006 Document Revised: 11/11/2018 Document Reviewed: 11/11/2018 Elsevier Patient Education 2020 [employer] Additional Information VACCINATE! IT SAVES LIVES! Members of the community who have not yet received the COVID-19 vaccine and would like to receive it can visit one of [facility] vaccine clinics. There are many vaccine clinic locations within the [facility]. For locations and available times, please visit [email or web address] It is important to note that some COVID mobile vaccine clinics are held outdoors and may be canceled in rainy or stormy conditions. To learn more about pediatric vaccinations (ages 5-11), we invite you to visit the [employer] webpage. [email or web address] [email or web address] learn more about the COVID-19 vaccine, we invite you to visit the CDC website for a list of frequently asked questions.https://www.cdc.gov/coronavirus/2019-ncov/vaccines/faq.html [employer] Patient Portal Access Instructions: Stay connected with your healthcare team and access your personal medical information anytime with the [employer] Patient Portal. Please follow the directions below to create your [employer] account: 1.Access the email account you provided upon registration to the hospital/physician office.2.Look for an invitation email from [facility].3.Open the email and access the invitation link: AcceptInvitation to [employer].4.Fill in the required gilmore to create your account. To access your account, visit [employer]. Click the blue button labeled "Access Patient Portal" and then log in with the username [...] who you will allowto register on the [facility] for access to your information. You can also access the [facility] on the [facility] toby. Simply click on "Patient Portal" and then log into your account. If you would like to receive a full copy of your medical records, please contact the [facility] Medical Records Department by calling [phone], Thursday through Thursday between 8 a.m. and [...] Call your local pharmacy or go to [email or web address] to find one close to you.3.Make use of household items: Use cat litter or old coffee grounds to dispose medications if other options arenot available. Mix your drugs with these household products, seal them in an airtight container andthrow it into the garbage. Call [facility]: [phone] to be sure your drugs can be [...] a CHART COPY. Signatures Patient Education Materials Community-Acquired Pneumonia, Adult Medication Leaflets My discharge plan and instructions have been reviewed and explained to me and I,ZAYDA DAVIS understand my current condition and have read and understand these discharge instructions. I have received a written copy of the plan/instructions. If I have questions, I am aware that I should contactmy doctor. 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 The following is importantdischarge information regarding your hospital visit. Your Care Team DENISSE SUTTON Your Diagnosis Pneumonia Respiratory failure What to do next Scheduled Follow-Up Appointments Appointment Type When With Where Contact Information StatusMEDS - Diabetic Individual Visit 11/16/2024 04:15 PM EDT [place] Diet Visits [phone] Confirmed PC OV 11/22/2024 04:00 PM EDT DENISSE SUTTON [facility] [place] Confirmed Follow Up Appointments Follow Up with [facility] - [address] [place] [address] [place] [address] Any questions or concerns please call When:Within 1-2 days Follow Up with DENISSE SUTTON When:Within 1-2 days Where:[address] [facility] [place] [address]- [phone] Additional Information: Please call the office to schedule a hospital follow up appointment. The Following Activity and Diet Have Been Ordered for You Discharge Activity - Ordered -- Activity As Tolerated, 11/11/24 14:17:00 EDT Discharge Diet - Ordered -- No changes were made to your diet during your hospital stay. Please resume your pre hospitalization diet on discharge., 11/11/24 14:17:00 EDT The Following Equipment Has Been Ordered for You No qualifying data available. The Following Treatments Have Been Ordered for You Discharge Labs No qualifying data available. Discharge Radiology No qualifying data available. Other Therapies No qualifying data available. Post Acute Orders No qualifying data available. Someone Will Contact You Regarding These Home Health Referrals Consult Home Health - Aide - Ordered -- 11/11/24 14:17:00 EDT, Aide Reason: Bathing assistance Consult Home Health - OT - Ordered -- 11/11/24 14:17:00 EDT, Home Therapy Order: OT Eval & Treat, Home Therapy Instruction: Full weight bearing, Reason: General Debility Consult Home Health - PT - Ordered -- 11/11/24 14:17:00 EDT, Home Therapy Order: PT Eval & Treat, Reason: General Debility, Home Therapy Instruction: Full weight bearing Consult Home Health - RN - Ordered -- 11/11/24 14:17:00 EDT, Reason: Disease management Consult Home Health - Commercial Credit Lead - Ordered -- 11/11/24 14:17:00 EDT, Reason: Home situation Allergies NKA Medications Please ask your primary doctor or pharmacist before taking any other medication not listed, including over the counter drugs, herbal medications, vitamins and or supplements as they may interact withyour home medications. What How Much When Why Instructions Last Dose New amoxicillin-clavulanate (amoxicillin-clavulanate 500 mg-125 mg oral tablet) 1 tab(s) by mouth Every 12 hours Duration: 7 Days Pickup at [place] [address] Changed carvedilol (Coreg 3.125 mg oral tablet) 1 tab(s) by mouth Twice daily with meals Pickup at [place] [address] Unchanged acetaminophen (acetaminophen 325 mg oral tablet) 2 tab(s) by mouth Every 6 hours as needed for as needed for pain Unchanged allopurinol (allopurinol 100 mg oral tablet) 1 tab(s) by mouth Once a day Duration: 90 Days Unchanged aspirin (aspirin 81 mg oral delayed release tablet) 1 tab(s) by mouth Once a day Unchanged atorvastatin (atorvastatin 80 mg oral tablet) 1 tab(s) by mouth Once a day Duration: 90 Days Unchanged calcium acetate (calcium acetate 667 mg oral capsule) 2 cap by mouth Three (3) times a day with meals Unchanged calcium carbonate (Tums E-X 750 mg oral tablet, chewable) 1 tab(s) Chewed Two (2) times a day Scheduled in between meals Unchanged cholecalciferol (Vitamin D3 50 mcg (2000 intl units) oral capsule) 1 tab(s) by mouth Every day Unchanged DME (Blood Glucose Test Machine) See instructions True Metrix Glucometer. Use glucometer daily as directed for blood sugar checks. Dispense insurancepreferred device Unchanged DME (Blood Glucose Test Strips) See instructions True Metrix Test Strips Use one test strip to check blood sugar once daily as directed. Dispense insurance preferred test strips. 1 box of 100 Unchanged DME (Blood Pressure Cuff) See instructions [...] #1 box of 100 strips Unchanged DME (FreeStyle Navid 3 [place]) See instructions Use reader to scan sensor once with every new sensor. Keep reader within 33 feet of the sensor and transmitter for daily blood sugar checks Unchanged DME (FreeStyle Navid 3+ Sensors) See instructions Place once sensor to the back of the upper arm every 15 days. Use reader or phone toby for daily blood sugar checks. 1 month supply Unchanged DME (Lancets) See instructions True Metrix Lancets. Use one lancet to ponce finger for blood sugar testing once daily as directed. Dispense insurance preferred lancets Unchanged DME (Pen needles 5 mm) See instructions qs for 1 month supply Unchanged DME (Pen needles) See instructions qs for 1 month supply. 31 G x 8 mm " use as diecte Unchanged ezetimibe (Zetia 10 mg oral tablet) 1 tab(s) by mouth Once a day Unchanged gabapentin (gabapentin 100 mg oral capsule) 1 cap by mouth Two (2) times a day Leg pain Duration: 30 Days Unchanged insulin aspart (Novolog) (NovoLOG FlexPen 100 units/ mL injectable solution) 5 unit(s) Subcutaneous Two (2) times daily before meals before lunch and dinner.If blood sugar <80 do not give. Unchanged insulin glargine (Toujeo Max SoloStar 300 units/ mL subcutaneous solution) 20 unit(s) Subcutaneous Once a day Unchanged lidocaine-prilocaine topical (lidocaine-prilocaine 2.5%-2.5% topical cream) 1 application Topical Once Once before dialysis Unchanged melatonin (melatonin 5 mg oral tablet) 1 tab(s) by mouth Daily at bedtime as needed for as needed for insomnia Unchanged Misc Medication (ONETOUCH DELICA PLUS LANCETS EXTRA FINE 33G MISC) Unchanged multivitamin (Nephro-Todd oral tablet) 1 tab(s) by mouth Once a day Unchanged multivitamin ([place]ter Caps) 1 cap by mouth Once a day Unchanged ondansetron (ondansetron 4 mg oral tablet, disintegrating) 1 tab(s) by mouth Every 6 hours as needed for Nausea/Vomiting Unchanged rOPINIRole (rOPINIRole 0.25 mg oral tablet) 1 tab(s) by mouth Two (2) times a day Pharmacy Information [facility] [address]: [address] [place] [id number] [phone] What How Much When Comments Stop Taking amLODIPine (amLODIPine 10 mg oral tablet) 1 tab(s) by mouth Once a day Stop Taking benzonatate (Tessalon Perles 100 mg oral capsule) 1 cap by mouth Every 8 hours as needed for as needed for cough Stop Taking doxycycline (doxycycline hyclate 100 mg oral capsule) 1 cap by mouth Two (2) times a day Duration: 10 Days Stop Taking hydrALAZINE (hydrALAZINE 100 mg oral tablet) 1 tab(s) by mouth Three (3) times a day Stop Taking nystatin topical (nystatin 100,000 units/ g topical powder) 1 application Topical Two (2) times a day Stop Taking torsemide (torsemide 100 mg oral tablet) 0.5 tab(s) by mouth Two (2) times a day Stop Taking venlafaxine (venlafaxine 112.5 mg oral tablet, extended release) 1 tab(s) by mouth Once a day with food Please take this list to your next doctor s visit. Bring all medications you take, including over the counter medications, herbals and other supplements with you to your doctor s visit. Patients and families are reminded to discard old lists and to update any records with all medication providers or retail pharmacies. Education Materials Community-Acquired Pneumonia, Adult Pneumonia is a type of lung infection that causes swelling in the airways of the lungs. Mucus and fluid may also build up inside the airways. This may cause coughing and difficulty breathing. There are different types of pneumonia. One type can develop while a person is in a hospital. A different type is called community-acquired pneumonia. It develops in people who are not, and have not recently been, in the hospital or another type of health care facility. What are the causes? This condition may be caused by: Viruses. This is the most common cause of pneumonia. Bacteria. Community-acquired pneumonia is often caused by Streptococcus pneumoniae bacteria. These bacteria are often passed from one person to another by breathing in droplets from the cough or sneeze of an infected person. Fungi. This is the least common cause of pneumonia. What increases the risk? The following factors may make you more likely to develop this condition: Having a chronic disease, such as chronic obstructive pulmonary disease (COPD), asthma, congestive heart failure, cystic fibrosis, diabetes, or kidney disease. Having early-stage or late-stage HIV. Having sickle cell disease. Having had your spleen removed (splenectomy). Having poor dental hygiene. Having a medical condition that increases the risk of breathing in (aspirating) secretions from your own mouth and nose. Having a weakened body defense system (immune system). Being a smoker. Traveling to areas where pneumonia-causing germs commonly exist. Being around animal habitats or animals that have pneumonia-causing germs, including birds, bats, rabbits, cats, and farm animals. What are the signs or symptoms? Symptoms of this condition include: A dry cough. A wet (productive) cough. Fever. Sweating. Chest pain, especially when breathing deeply or coughing. Rapid breathing or difficulty breathing. Shortness of breath. Shaking chills. Fatigue. Muscle aches. How is this diagnosed? This condition may be diagnosed based on: Your medical history. A physical exam. You may also have tests, including: Chest X-rays. Tests of your blood oxygen level and other blood gases. Tests on blood, mucus (sputum), fluid around your lungs (pleural fluid), and urine. If your pneumonia is severe, other tests may be done to find the exact cause of your illness. How is this treated? Treatment for this condition depends on many factors, such as the cause of your pneumonia, the medicines you take, and other medical conditions that you have. For most adults, treatment and recovery from pneumonia may occur at home. In some cases, treatment must happen in a hospital. Treatment may include: Medicines that are given by mouth or through an IV, including: ? Antibiotic medicines, if the pneumonia was caused by bacteria. ? Antiviral medicines, if the pneumonia was caused by a virus. Being given extra oxygen. Respiratory therapy. Although rare, treating severe pneumonia may include: Using a machine to help you breathe (mechanical ventilation). This is done if you are not breathingwell on your own and you cannot maintain a safe blood oxygen level. Thoracentesis. This is a procedure to remove fluid from around one lung or both lungs to help you breathe better. Follow these instructions at home: Medicines Take ncjc-poa-cgkzang and prescription medicines only as told by your health care provider. ? Only take cough medicine if you are losing sleep. Be aware that cough medicine can prevent your body's natural ability to remove mucus from your lungs. If you were prescribed an antibiotic medicine, take it as told by your health care provider. Do notstop taking the antibiotic even if you start to feel better. General instructions Sleep in a semi-upright position at night. Try sleeping in a reclining chair, or place a few pillows under your head. Rest as needed and get at least 8 hours of sleep each night. Drink enough water to keep your urine pale yellow. This will help to thin out mucus secretions in your lungs. Eat a healthy diet that includes plenty of vegetables, fruits, whole grains, low-fat dairy products, and lean protein. Do not use any products that contain nicotine or tobacco, such as cigarettes, e- cigarettes, and chewing tobacco. If you need help quitting, ask your health care provider. Keep all follow-up visits as told by your health care provider. This is important. How is this prevented? You can lower your risk of developing community-acquired pneumonia by: Getting a pneumococcal vaccine. There are different types and schedules of pneumococcal vaccines. Ask your health care provider which option is best for you. Consider getting the vaccine if: ? You are older than 65 years of age. ? You are older than 19 years of age and are undergoing cancer treatment, have chronic lung disease, or have other medical conditions that affect your immune system. Ask your health care provider if this applies to you. Getting an influenza vaccine every year. Ask your health care provider which type of vaccine is best for you. Getting regular checkups from your dentist. Washing your hands often. If soap and water are not available, use hand plow and boring machine tender. Contact a health care provider if: You have a fever. You are losing sleep because you cannot control your cough with cough medicine. Get help right away if: You have worsening shortness of breath. You have increased chest pain. Your sickness becomes worse, especially if you are an older adult or have a weakened immune system. You cough up blood. Summary Pneumonia is an infection of the lungs. Community-acquired pneumonia develops in people who have not been in the hospital. It can be causedby bacteria, viruses, or fungi. This condition may be treated with antibiotics or antiviral medicines. Severe cases may require hospitalization, mechanical ventilation, and other procedures to drain fluid from the lungs. This information is not intended to replace advice given to you by your health care provider. Make sure you discuss any questions you have with your health care provider. Document Released: 03/16/2006 Document Revised: 11/11/2018 Document Reviewed: 11/11/2018 Elsevier Patient Education 2020 [employer] Additional Information VACCINATE! IT SAVES LIVES! Members of the community who have not yet received the COVID-19 vaccine and would like to receive it can visit one of [facility] vaccine clinics. There are many vaccine clinic locations within the [facility]. For locations and available times, please visit [email or web address].[place].gov/. It is important to note that some COVID mobile vaccine clinics are held outdoors and may be canceled in rainy or stormy conditions. To learn more about pediatric vaccinations (ages 5-11), we invite you to visit the [facility] webpage. [email or web address]/[email or web address] learn more about the COVID-19 vaccine, we invite you to visit the CDC website for a list of frequently asked questions.https://www.cdc.gov/coronavirus/2019-ncov/vaccines/faq.html [facility] Patient Portal Access Instructions: Stay connected with your healthcare team and access your personal medical information anytime with the [facility] Patient Portal. Please follow the directions below to create your [facility] account: 1.Access the email account you provided upon registration to the hospital/physician office.2.Look for an invitation email from [facility].3.Open the email and access the invitation link: AcceptInvitation to [facility].4.Fill in the required gilmore to create your account. To access your account, visit [facility]. Click the blue button labeled "Access Patient Portal" and then log in with the username and password that you created in the steps above. You will be able to view your test results, lab results, a summary of your visits, upcoming appointments and more. There is also a convenient messaging option where you can send secure messages to your p [employer]. In addition, you will have the ability to download any documents or summaries to your computer and/or send the information securely to a physician. Remember that your healthcare information is confidential, so carefully consider who you will allowto register on the [facility] Patient Portal for access to your information. You can also access the [facility] Patient Portal on the [facility] toby. Simply click on "Patient Portal" and then log into your account. If you would like to receive a full copy of your medical records, please contact the [facility] Medical Records Department by calling [phone], Thursday through Thursday between 8 a.m. and [...] Call your local pharmacy or go to [email or web address] to find one close to you.3.Make use of household items: Use cat litter or old coffee grounds to dispose medications if other options arenot available. Mix your drugs with these household products, seal them in an airtight container andthrow it into the garbage. Call [facility]: [phone] to be sure your drugs can be [...] a CHART COPY. Signatures Patient Education Materials Community-Acquired Pneumonia, Adult Medication Leaflets My discharge plan and instructions have been reviewed and explained to me and IARASH SHARON S understand my current condition and have read and understand these discharge instructions. I have received a written copy of the plan/instructions. If I have questions, I am aware that I should contactmy doctor. 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 Hoping to go home today. Objective Vitals and Measurements T: 36.8 C (Oral) TMIN: 36.4 C (Skin) TMAX: 37.2 C (Oral) HR: 64 (Monitored) RR: 16 BP: 141/74 SpO2: 91% WT: 107 kg Intake and Output 7AM Yesterday to 7AM Today Intake and Output (Last 24 hours) Intake Oral Intake 400.00 Output Urinary Catheter Output: 100.00 Hemodialysis 2500.00 Stool Count 0.00 Urine Count 0.00 Emesis Count 0.00 Total Summary Total Intake 400.00 Total Output 2600.00 Fluid Balance -2200.00 Physical Exam extremities are warm and dry with only trace pretibial edema bilaterally right upper extremity AV fistula good palpable thrill audible bruitHeart had a regular rhythm normal S1-S2 lungs clear to auscultation posteriorly abdomen had bowel sounds positive x 4 soft nontender nondistended right upper extremity AV fistula good palpable thrill possible bruit no bleeding or bruising Weight Dosing Weight: 107 kg (11/10/24) Dosing Weight: 109.8 kg (11/10/24) Medications Medications (18) Active Scheduled: (8) aspirin 81 mg Chewable 81 mg 1 tab(s), Oral, qDay atorvastatin 40 mg tablet 40 mg 1 tab(s), Oral, qDay azithromycin IV 500 mg 5 mL, IV Piggyback, qDay carvedilol 12.5 mg tablet 12.5 mg 1 tab(s), Oral, BIDM cefTRIAXone IVP syringe 2 gram(s) 20 mL, IV Push (INT), qDay heparin 5,000 units/mL (1 mL) vial 5,000 unit(s) 1 mL, Subcutaneous, q8h insulin glargine 10 unit(s) 0.1 mL, Subcutaneous (INT), qHS insulin lispro 100 units/mL Soln (3 mL) Give 0-5 units/dose, Subcutaneous, TIDAC Continuous: (0) PRN: (10) acetaminophen 325 mg Tablet 650 mg 2 tab(s), Oral, q6hr acetaminophen 325 mg Tablet 650 mg 2 tab(s), Oral, q4h acetaminophen 650 mg Suppository 650 mg 1 supp, Rectal, q4h Al hydrox/Mg hydrox/simethicone 200-200-20 mg/5 mL Susp UD 30 mL, Oral, q2h albuterol - ipratropium 2.5 mg-0.5 mg/3 mL Inhal Daria UD 3 mL, Inhalation, q4hRT bisacodyl 5 mg EC tablet 10 mg 2 tab(s), Oral, qDay dextrose 50% Solution Disp syringe 50 mL 25 gram(s) 50 mL, IV Push, AsDirected docusate-senna (Senokot S) 50 mg-8.6 mg Tablet 1 tab(s), Oral, BID melatonin 3 mg tablet 3 mg 1 tab(s), Oral, qHS ondansetron 2 mg/ 1 mL 2 mL INJ 4 mg 2 mL, IV Push, q6hr Lab Results 11/11 05:02 WBC: 6.8 Hgb: 9.6 L Hct: 28.5 L Platelet: 147 L Neutrophil %: 69.4 Glucose Level: 116 H Sodium Level: 140 Potassium Level: 4.5 BUN: 30.0 H Creatinine Lvl (s): 4.53 H 11/10 14:53 WBC: 7.8 Hgb: 10.5 L Hct: 31.7 L Platelet: 165 Neutrophil %: 80.3 H Glucose Level: 111 H Glucose Level: 111 H Sodium Level: 141 Sodium Level: 141 Potassium Level: 4.6 Potassium Level: 4.6 BUN: 15.0 BUN: 15.0 Creatinine Lvl (s): 2.72 H Creatinine Lvl (s): 2.72 H EKG No qualifying data available. Assessment/Plan Assessment plan 1. End-stage renal disease she will dialysis tomorrow should be her regular day 2. Hyperkalemia resolved 3. Dyspnea being treated for pneumonia challenge her dry weight with dialysis does appear to be improved 4. Anemia hemoglobin is good 5. Diabetes continue tight blood glucose control Digitally Signed by COREY RAGLAND MD on 11/11/2024 07:47 AM [id number] Note Date of Service 11/10/2024 Chief Complaint Pneumonia, respiratory failure Subjective Patient seen examined at bedside today. Chart reviewed. Discussed with medical staff. No events noted overnight, patient weaned to 2 L/min nasal cannula oxygen saturating 96%. Patient awake and alert oriented x 4 denies current pain or discomfort, endorses improvement in respiratory status, dry cough denies hemoptysis, denies chest pain. Objective Vitals and Measurements T: 37.2 C (Oral) TMIN: 36.4 C (Skin) TMAX: 37.7 C (Oral) HR: 65 (Monitored) RR: 16 BP: 149/67 SpO2:91% WT: 107 kg Intake and Output 7AM Yesterday to 7AM Today Intake and Output (Last 24 hours) Intake Oral Intake 890.00 Output Urinary Catheter Output: 500.00 Hemodialysis 2500.00 Stool Count 0.00 Emesis Count 0.00 Total Summary Total Intake 890.00 Total Output 3000.00 Fluid Balance -2110.00 Physical Exam General: AAO x 4, no acute distress HEENT: No Icterus Cardiac: S1, S2, regular Lungs: Improved air movement bilaterally, no wheeze Abdomen: Soft, Non tender, bowel sounds present Extremities: 2+ distal pulses, moving all 4 extremities freely Weight Dosing Weight: 107 kg (11/10/24) Dosing Weight: 109.8 kg (11/10/24) Medications Medications (18) Active Scheduled: (8) aspirin 81 mg Chewable 81 mg 1 tab(s), Oral, qDay atorvastatin 40 mg tablet 40 mg 1 tab(s), Oral, qDay azithromycin IV 500 mg 5 mL, IV Piggyback, qDay carvedilol 12.5 mg tablet 12.5 mg 1 tab(s), Oral, BIDM cefTRIAXone IVP syringe 2 gram(s) 20 mL, IV Push (INT), qDay heparin 5,000 units/mL (1 mL) vial 5,000 unit(s) 1 mL, Subcutaneous, q8h insulin glargine 10 unit(s) 0.1 mL, Subcutaneous (INT), qHS insulin lispro 100 units/mL Soln (3 mL) Give 0-5 units/dose, Subcutaneous, TIDAC Continuous: (0) PRN: (10) acetaminophen 325 mg Tablet 650 mg 2 tab(s), Oral, q6hr acetaminophen 325 mg Tablet 650 mg 2 tab(s), Oral, q4h acetaminophen 650 mg Suppository 650 mg 1 supp, Rectal, q4h Al hydrox/Mg hydrox/simethicone 200-200-20 mg/5 mL Susp UD 30 mL, Oral, q2h albuterol - ipratropium 2.5 mg-0.5 mg/3 mL Inhal Daria UD 3 mL, Inhalation, q4hRT bisacodyl 5 mg EC tablet 10 mg 2 tab(s), Oral, qDay dextrose 50% Solution Disp syringe 50 mL 25 gram(s) 50 mL, IV Push, AsDirected docusate-senna (Senokot S) 50 mg-8.6 mg Tablet 1 tab(s), Oral, BID melatonin 3 mg tablet 3 mg 1 tab(s), Oral, qHS ondansetron 2 mg/ 1 mL 2 mL INJ 4 mg 2 mL, IV Push, q6hr Lab Results 11/10 14:53 WBC: 7.8 Hgb: 10.5 L Hct: 31.7 L Platelet: 165 Neutrophil %: 80.3 H Glucose Level: 111 H Glucose Level: 111 H Sodium Level: 141 Sodium Level: 141 Potassium Level: 4.6 Potassium Level: 4.6 BUN: 15.0 BUN: 15.0 Creatinine Lvl (s): 2.72 H Creatinine Lvl (s): 2.72 H Imaging Results and Diagnostics XR Chest 1 View Result Date: November 09, 2024 Verified By: GELACIO HE MD CLINICAL STATEMENT: IMPRESSION: Peripheral airspace disease in the right lung is slightly improved. Followto resolution CT Head or Brain w/o Contrast Result Date: November 08, 2024 Verified By: NAWAF CHOU MD CLINICAL STATEMENT: IMPRESSION: No acute intracranial abnormality. XR Chest 1 View Result Date: November 08, 2024 Verified By: TONY MANUEL MD CLINICAL STATEMENT: IMPRESSION: Airspace opacities most pronounced in the right lateral lung. Asymmetricappearance favors pneumonia and/or aspiration over edema. Small effusions not excluded. EKG No qualifying data available. Assessment/Plan Acute on chronic hypoxic respiratory failure with increased work of breathing Hyperkalemia, improving Community-acquired pneumonia Elevated troponin, likely supply/demand mismatch per Cardiology Abnormal echocardiogram with concern for echodensity, management per Cardiology ESRD on hemodialysis, missed HD 11/08 Delirium secondary to above, improved Type 2 diabetes mellitus HFpEF Diabetic neuropathy Coronary artery disease Hypertension Dyslipidemia PLAN: 58 years old female PMH ESRD on hemodialysis, chronic hypoxic respiratory failure on 4 L of oxygen via nasal cannula at home, type 2 diabetes mellitus on insulin, HFpEF, class III obesity, diabetic neuropathy, general anxiety disorder, coronary artery disease, hypertension, dyslipidemia presented to [facility] ER with a chief concern for chest pressure, nausea/vomiting, cough and shortness of breath. She is initially presented to [facility] ED earlier this morning with complaints of cough, nausea, vomiting and chest pressure. Chest x-ray showed finding of congestion/edema versus developing infectious or inflammatory process. White count was 14,000 with 88% neutrophils. BUN/creatinine was 62/7.17, potassium was elevated at 5.6. Troponins were not elevated. COVID/flu/RSV PCR was negative. Patient received doses of morphine and Zofran along with oral Lokelma for hyperkalemia however patient refused Lokelma. Patient was felt stable for discharge for dialysis early tomorrow morning and she was prescribed Zithromax, Zofran and Tessalon Perles. Patient went home and presented to [facility] ER with persistent shortness of breath, cough and nausea/vomiting. Initial evaluation: saturating well on home 4 L of oxygen by nasal, appeared to be encephalopathic, she was oriented to place and person but not to time. CBC showed white count of 12,400 with left shift, hemoglobin of 10.7. CMP showed BUN/creatinine of 63/7.59, potassium of 5.7. proBNP of 14,000, troponin trended upward from 46-1 69. Chest x-ray done at [facility] showed airspace opacities most pronounced in the right lateral lung favoring pneumonia. EKG showed sinus rhythm with left bundle branch block with QTc of 451 ms Patient with rapid response 11/09 secondary to increased lethargy and work of breathing, discussed with rapid response team and medical staff. ABG completed demonstrating CO2 retention, likely contributing to altered mental state as well, converted to BiPAP, consultation to pulmonary team for review and recommendations input appreciated. Antibiotics continue for pneumonia, supportive measures aerosol treatments oxygen therapy with weaning as tolerated, cultures and atypical workup requested. Cardiology team on consult for elevated troponin, input appreciated echocardiogram demonstrating concern for valvular echodensity, management as per cardiology team recommending blood cultures and continue monitoring. Nephrology on consult for end-stage renal disease underwent hemodialysis again today. Home medication continued for underlying medical conditions. AM labs cbc, cmp Prognosis remains guarded, palliative care team consulted. The above discussed patient at bedside today who states understanding and agreement with plan. Family updated 11/09 at patient's request updated sister as well as son Sridevi, family states understanding and agreement with plan. Discussed with medical staff. Questions sought and answered. Level of Care Indication SD monitor (other: specify in note) DVT Prophylaxis Heparin SQ Maintenance IVF Indication NA / No maintenance IVF Indwelling Urinary Catheter Indication NA No indwelling catheter Anticipated Timeline of Discharge 1-2 days pending clinical course Anticipated DC Disposition Home c HHCpending clinical course Digitally Signed by KYLE LOPES MD on 11/10/2024 05:47 PM [facility] [id number] Cardiology Progress note Date of Service 11/10/24 Subjective Patient seen and examined at bedside. No acute overnight events. Had hemodialysis with 2.5 L removed yesterday. Telemetry showing Mobitz type I in sinus rhythm. Objective Vitals and Measurements T: 36.4 C (Skin) TMIN: 36.2 C (Skin) TMAX: 37.7 C (Oral) HR: 61 RR: 18 BP: 116/57 SpO2: 90% WT: 109.8 kg Intake and Output 7AM Yesterday to 7AM Today Intake and Output (Last 24 hours) Intake Oral Intake 570.00 Output Urinary Catheter Output: 400.00 Hemodialysis 2500.00 Stool Count 0.00 Urine Count 1.00 Total Summary Total Intake 570.00 Total Output 2900.00 Fluid Balance -2330.00 Physical Exam GENERAL: Pt is comfortable in bed. On BiPAP NECK: No JVD or Carotid Bruit CVS: S1 & S2 audible, Regular Rate and Rhythm, No Murmurs LUNG: Bronchial breath sounds bilateral GI: + BS, Abdomen is Soft EXTREMITIES: Mild lower extremity edema SKIN: Warm & Dry Weight Dosing Weight: 109.8 kg (11/10/24) Dosing Weight: 108.9 kg (11/09/24) Medications Medications (18) Active Scheduled: (8) aspirin 81 mg Chewable 81 mg 1 tab(s), Oral, qDay atorvastatin 40 mg tablet 40 mg 1 tab(s), Oral, qDay azithromycin IV 500 mg 5 mL, IV Piggyback, qDay carvedilol 12.5 mg tablet 12.5 mg 1 tab(s), Oral, BIDM cefTRIAXone IVP syringe 2 gram(s) 20 mL, IV Push (INT), qDay heparin 5,000 units/mL (1 mL) vial 5,000 unit(s) 1 mL, Subcutaneous, q8h insulin glargine 10 unit(s) 0.1 mL, Subcutaneous (INT), qHS insulin lispro 100 units/mL Soln (3 mL) Give 0-5 units/dose, Subcutaneous, TIDAC Continuous: (0) PRN: (10) acetaminophen 325 mg Tablet 650 mg 2 tab(s), Oral, q6hr acetaminophen 325 mg Tablet 650 mg 2 tab(s), Oral, q4h acetaminophen 650 mg Suppository 650 mg 1 supp, Rectal, q4h Al hydrox/Mg hydrox/simethicone 200-200-20 mg/5 mL Susp UD 30 mL, Oral, q2h albuterol - ipratropium 2.5 mg-0.5 mg/3 mL Inhal Daria UD 3 mL, Inhalation, q4hRT bisacodyl 5 mg EC tablet 10 mg 2 tab(s), Oral, qDay dextrose 50% Solution Disp syringe 50 mL 25 gram(s) 50 mL, IV Push, AsDirected docusate-senna (Senokot S) 50 mg-8.6 mg Tablet 1 tab(s), Oral, BID melatonin 3 mg tablet 3 mg 1 tab(s), Oral, qHS ondansetron 2 mg/ 1 mL 2 mL INJ 4 mg 2 mL, IV Push, q6hr Lab Results 11/09 02:56 WBC: 12.2 H Hgb: 11.2 L Hct: 34.0 Platelet: 164 Neutrophil %: 84.8 H Glucose Level: 173 H Sodium Level: 141 Potassium Level: 5.3 H BUN: 65.0 H Creatinine Lvl (s): 7.85 H 11/09 00:48 Potassium Level: 5.4 H EKG No qualifying data available. Assessment/Plan Elevated protein likely secondary to supply/demand mismatch in the setting of missed hemodialysis Acute on chronic hypoxic respiratory failure secondary to missed hemodialysis and PNA Community-acquired pneumonia Delirium Chronic hypoxic respiratory failure on 4 L home oxygen ESRD on hemodialysis History of CAD s/p LAD PCI, moderate proximal RCA disease Hypertension Hyperlipidemia Obesity Chronic left bundle branch block Mild MS Plan Patient had hemodialysis yesterday and plan for dialysis today. Troponins increased to 573 denies any chest pain will repeat today to ensure downtrending. No plan for ischemic evaluation at this time. Surface echo although poor quality showing normal EF with an immobile aortic valve echodensity which could represent Lambl's however vegetation and fibroblastoma cannot be ruled out. Review of previous echo did not show this calcified echodensity in the past. Blood cultures are pending and has been negative thus far. If blood cultures become positive we will proceed with EZEQUIEL for further evaluation. Continue with aspirin, statin, Coreg and resume other cardiac meds as tolerated by BP. Rest of management per primary team. Continue to monitor closely. Cardiology will continue to follow patient. Digitally Signed by YASMINE DICKENS MD on 11/10/2024 12:14 PM [facility] [id number] Nephrology Progress note Date of Service 11/10 Subjective Patient tolerated dialysis well yesterday. Complains of a sore throat this morning. Denies dyspnea.Did not tolerate BiPAP mask through the night. Is on nasal cannula oxygen. Did not eat very well. Objective Vitals and Measurements T: 36.4 C (Oral) TMIN: 36.2 C (Skin) TMAX: 37.7 C (Oral) HR: 65 (Monitored) RR: 18 BP: 137/66 SpO2:95% WT: 108.9 kg Intake and Output 7AM Yesterday to 7AM Today Intake and Output (Last 24 hours) Intake Oral Intake 570.00 Output Urinary Catheter Output: 400.00 Hemodialysis 2500.00 Stool Count 0.00 Urine Count 1.00 Total Summary Total Intake 570.00 Total Output 2900.00 Fluid Balance -2330.00 Physical Exam Heart had a regular rhythm normal S1 and S2 lungs are clear to auscultation posteriorly abdomen hadbowel sounds positive x 4 soft nontender nondistended extremities are warm and dry with only trace pretibial edema bilaterally right upper extremity AV fistula good palpable [facility] bruit Weight Dosing Weight: 108.9 kg (11/09/24) Dosing Weight: 112.5 kg (11/09/24) Medications Medications (18) Active Scheduled: (8) aspirin 81 mg Chewable 81 mg 1 tab(s), Oral, qDay atorvastatin 40 mg tablet 40 mg 1 tab(s), Oral, qDay azithromycin IV 500 mg 5 mL, IV Piggyback, qDay carvedilol 12.5 mg tablet 12.5 mg 1 tab(s), Oral, BIDM cefTRIAXone IVP syringe 2 gram(s) 20 mL, IV Push (INT), qDay heparin 5,000 units/mL (1 mL) vial 5,000 unit(s) 1 mL, Subcutaneous, q8h insulin glargine 10 unit(s) 0.1 mL, Subcutaneous (INT), qHS insulin lispro 100 units/mL Soln (3 mL) Give 0-5 units/dose, Subcutaneous, TIDAC Continuous: (0) PRN: (10) acetaminophen 325 mg Tablet 650 mg 2 tab(s), Oral, q6hr acetaminophen 325 mg Tablet 650 mg 2 tab(s), Oral, q4h acetaminophen 650 mg Suppository 650 mg 1 supp, Rectal, q4h Al hydrox/Mg hydrox/simethicone 200-200-20 mg/5 mL Susp UD 30 mL, Oral, q2h albuterol - ipratropium 2.5 mg-0.5 mg/3 mL Inhal Daria UD 3 mL, Inhalation, q4hRT bisacodyl 5 mg EC tablet 10 mg 2 tab(s), Oral, qDay dextrose 50% Solution Disp syringe 50 mL 25 gram(s) 50 mL, IV Push, AsDirected docusate-senna (Senokot S) 50 mg-8.6 mg Tablet 1 tab(s), Oral, BID melatonin 3 mg tablet 3 mg 1 tab(s), Oral, qHS ondansetron 2 mg/ 1 mL 2 mL INJ 4 mg 2 mL, IV Push, q6hr Lab Results 11/09 02:56 WBC: 12.2 H Hgb: 11.2 L Hct: 34.0 Platelet: 164 Neutrophil %: 84.8 H Glucose Level: 173 H Sodium Level: 141 Potassium Level: 5.3 H BUN: 65.0 H Creatinine Lvl (s): 7.85 H 11/09 00:48 Potassium Level: 5.4 H EKG No qualifying data available. Assessment/Plan Orders: Renal Function Panel(RFP), 11/10/24 5:00:00 EDT, Next AM Draw (one day only), Blood, Once, Preferred Lab: [facility], Stop date 11/10/24 5:00:00 EDT Assessment plan 1. End-stage renal disease dialysis today her usual day. 2. Hyperkalemia labs today are pending. 3. DyspneaChest x-ray yesterday showed peripheral airspace disease right lung slightly improved follow-up for resolution chest x-ray from the displayed findings suggestive of adjustment/edema versus developing infectious or plantar process will try and challenge her dry weight with dialysis keke blood pressure allows she is on antibiotics for suspected pneumonia 4. Anemia hemoglobin is good no need for EPO 5.Diabetes continue tight blood glucose control Digitally Signed by COREY RAGLAND MD on 11/10/2024 07:52 AM [facility] [id number] Note. MICRO - Microbiology PROCEDURE: Streptococcus Pneumoniae Urine Antig [^1 *1] SOURCE: Urine, Clean Catch BODY SITE: COLLECTED DATE/TIME: 11/10/2024 00:03 EDT RECEIVED DATE/TIME: 11/10/2024 06:05 EDT START DATE/TIME: 11/10/2024 06:05 EDT FREE TEXT SOURCE: FINAL REPORTS Final Report [] Verified Date/Time/Personnel: 11/10/2024 07:14 EDT Presumptive negative for pneumococcal pneumonia, suggesting no current or recent pneumococcal infection. Infection due to Strep pneumoniae cannot be ruled out since the antigen present in the sample may be below the detection limit of the test. Interpretive Data ^1: Streptococcus Pneumoniae Urine Antig This test has not been evaluated on patients taking antibiotics for greater than 24 hours or on patients who have recently completed an antibiotic regimen. The accuracy of this test has not been proven in young children. Performing Locations *1: This test was performed at: [facility], [address] [place] [address], [facility] , [id number] Note. MICRO - Microbiology PROCEDURE: Legionella Urine Ag [*1] SOURCE: Urine BODY SITE: COLLECTED DATE/TIME: 11/10/2024 00:03 EDT RECEIVED DATE/TIME: 11/10/2024 06:05 EDT START DATE/TIME: 11/10/2024 06:05 EDT FREE TEXT SOURCE: FINAL REPORTS Final Report [] Verified Date/Time/Personnel: 11/10/2024 07:13 EDT Presumptive negative for L. pneumophila serogroup 1 antigen in urine, suggesting no recent or current infection. Legionnaire's disease cannot be ruled out since other serogroups and species may also cause disease. Performing Locations *1: This test was performed at: [facility], [address] [place] [address], [facility]- , [facility] [id number] Cardiology Consult note Date of Service 11/09/2024 Reason for Consultation Elevated troponin History of Present Illness Patient is a 58-year-old female with a past medical history of CAD status post LAD PCI and moderateproximal RCA disease, chronic left bundle branch block, mild MS, obesity, type 2 diabetes, chronic hypoxic respiratory failure on 4 L home oxygen, ESRD on hemodialysis, hypertension, hyperlipidemia who presented with chest pressure, nausea vomiting, cough, shortness of breath and was found to have delirium, community-acquired pneumonia, missed hemodialysis. Cardiology is being consulted for elevated troponins. Patient currently denies any chest discomfort however is on BiPAP, plan for urgent dialysis today. Denies any palpitations orthopnea PND or lower extremity swelling. She follows with Dr. Crow and was last seen a few weeks ago. Patient had left heart catheterization July 2022 that showed moderate proximal RCA disease 60% medically managed, patent LAD stent, moderate left circumflex disease, 90% second OM disease small vessel so no intervention. Cardiology consulted for elevated troponin. Review of Systems 12 point ROS reviewed and negative unless stated above. Physical Exam Vitals and Measurements T: 36.2 C (Skin) TMIN: 36.2 C (Skin) TMAX: 37.8 C (Axillary) HR: 74 (Monitored) RR: 18 BP: 156/75 SpO2: 97% WT: 112.5 kg Weight Dosing Weight: 112.5 kg (11/09/24) GENERAL: Pt is comfortable in bed. On BiPAP NECK: No JVD or Carotid Bruit CVS: S1 & S2 audible, Regular Rate and Rhythm, No Murmurs LUNG: Bronchial breath sounds bilateral GI: + BS, Abdomen is Soft EXTREMITIES: Mild lower extremity edema SKIN: Warm & Dry Lab Results 11/09 02:56 WBC: 12.2 H Hgb: 11.2 L Hct: 34.0 Platelet: 164 Neutrophil %: 84.8 H Glucose Level: 173 H Sodium Level: 141 Potassium Level: 5.3 H BUN: 65.0 H Creatinine Lvl (s): 7.85 H 11/09 00:48 Potassium Level: 5.4 H 11/08 16:33 WBC: 12.4 H Hgb: 10.7 L Hct: 32.3 L Platelet: 178 Neutrophil %: 86.6 H Glucose Level: 261 H Sodium Level: 139 Potassium Level: 5.7 H BUN: 63.0 H Creatinine Lvl (s): 7.59 H Assessment/Plan Elevated protein likely secondary to supply/demand mismatch in the setting of missed hemodialysis Acute on chronic hypoxic respiratory failure secondary to missed hemodialysis and PNA Community-acquired pneumonia Delirium Chronic hypoxic respiratory failure on 4 L home oxygen ESRD on hemodialysis History of CAD s/p LAD PCI, moderate proximal RCA disease Hypertension Hyperlipidemia Obesity Chronic left bundle branch block Mild MS Plan Patient denies having any chest discomfort, troponins are elevated however fairly flat will repeat in a.m. to ensure downtrending. EKG is nonischemic and unchanged from previous, she has a chronic left bundle branch block. Surface echo done 05/23 showing EF of 55 to 60% and mild MS. Likely elevationof troponin in the setting of missed hemodialysis. Plan for hemodialysis today. Continue with aspirin, statin, Coreg and resume other cardiac meds as tolerated by BP. Surface echo ordered by primary team will follow-up on results. Rest of management per primary team. Continue to monitor closely. Cardiology will continue to follow patient. Problem List/Past Medical History Ongoing (HFpEF) heart failure with preserved ejection fraction Anemia Anxiety Back pain Breast cancer screening CAD (coronary artery disease) Chronic constipation Chronic headaches Chronic respiratory failure Class 3 obesity Congestive heart failure Diabetic neuropathy Diabetic retinopathy DM type 2 with diabetic mixed hyperlipidemia 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 to type 2 diabetes mellitus Episode of shaking ESRD on dialysis Generalized anxiety disorder Hammertoe of right foot Hearing loss History of stroke Hyperlipidemia Hypertension Hypoxia Iron deficiency anemia Jaundice Low back pain Major depressive disorder Mass of left lower leg Medicare annual wellness visit, subsequent Mental status alteration On anticoagulant therapy On home oxygen therapy Pneumonia Postmenopausal Screening for breast cancer Screening for colon cancer Spasm of left trapezius muscle Systolic murmur Type 2 diabetes mellitus Vitamin D deficiency Historical Acute hypoxemic respiratory failure due to COVID-19 Anxiety Anxiety and depression AV fistula thrombosis CKD stage 3 secondary to diabetes COVID-19 Depression Depression Diabetes type 2, uncontrolled ESRD on hemodialysis Eustachian tube dysfunction Fall Forehead abrasion Hypokalemia Left shoulder pain Mental status change resolved Pneumonia due to COVID-19 virus Postmenopausal vaginal bleeding Psychosis Respiratory insufficiency Slurred speech Stage 4 chronic kidney disease URI (upper respiratory infection) Procedure/Surgical History Fistula: 03/30/23 Cholecystectomy: 03/30/22 Echocardiogram: 01/22/22 Cardiovascular stress testin01/10/22 Fistula: 2021 Cardiac catheterization: 05/27/21 Cardiovascular stress testin04/19/21 Echocardiogram: 01/21/21 Doppler ultrasound of bilateral carotid arteries: 08/21/20 Appendectomy Stent Medications Inpatient acetaminophen, 650 mg= 2 tab(s), Oral, q6hr, PRN aspirin 81 mg oral tablet, chewable, 81 mg= 1 tab(s), Oral, qDay atorvastatin, 40 mg= 1 tab(s), Oral, qDay Coreg, 12.5 mg= 1 tab(s), Oral, BIDM Dextrose 50% IV Push, 25 gram(s)= 50 mL, IV Push, AsDirected, PRN Dulcolax Laxative, 10 mg= 2 tab(s), Oral, qDay, PRN DuoNeb, 3 mL, Inhalation, q4hRT, PRN heparin 5000 units/mL injection, 5000 unit(s)= 1 mL, Subcutaneous, q8h HumaLOG 100 units/mL subcutaneous solution, Give 0-5 units/dose, Subcutaneous, TIDAC Lantus, 10 unit(s)= 0.1 mL, Subcutaneous (INT), qHS Maalox, 30 mL, Oral, q2h, PRN melatonin, 3 mg= 1 tab(s), Oral, qHS, PRN Rocephin, 2 gram(s)= 20 mL, IV Push (INT), qDay Senokot S, 1 tab(s), Oral, BID, PRN Tylenol, 650 mg= 2 tab(s), Oral, q4h, PRN Tylenol, 650 mg= 1 supp, Rectal, q4h, PRN Zithromax IV Home acetaminophen 325 mg oral tablet, 650 mg= 2 tab(s), Oral, q6h, PRN allopurinol 100 mg oral tablet, 100 mg= 1 tab(s), Oral, qDay, 3 refills amLODIPine 10 mg oral tablet, 10 mg= 1 tab(s), Oral, qDay, 3 refills aspirin 81 mg oral delayed release tablet, 81 mg= 1 tab(s), Oral, qDay atorvastatin 80 mg oral tablet, 80 mg= 1 tab(s), Oral, qDay, 3 refills Blood Glucose Test Machine, See Instructions Blood Glucose Test Strips, See Instructions, 6 refills Blood Pressure Cuff, See Instructions calcium acetate 667 mg oral capsule, 1334 mg= 2 cap(s), Oral, TID Coreg 12.5 mg oral tablet, 12.5 mg= 1 tab(s), Oral, BID, 3 refills DME MISCellaneous, See Instructions DME MISCellaneous, See Instructions DME MISCellaneous, See Instructions DME MISCellaneous, See Instructions, 11 refills doxycycline hyclate 100 mg oral capsule, 100 mg= 1 cap(s), PO, BID, Not taking: No longer taking atfacility FreeStyle Navid 3 [place], See Instructions FreeStyle Navid 3+ Sensors, See Instructions, 6 refills gabapentin 100 mg oral capsule, 100 mg= 1 cap(s), Oral, BID, 5 refills hydrALAZINE 100 mg oral tablet, 100 mg= 1 tab(s), Oral, TID, 3 refills Lancets, See Instructions, 6 refills lidocaine-prilocaine 2.5%-2.5% topical cream, 1 toby, Topical, Once melatonin 5 mg oral tablet, 5 mg= 1 tab(s), Oral, qHS, PRN, Not taking: No longer taking at facility Nephro-Todd oral tablet, 1 tab(s), Oral, qDay, Not taking: No longer taking at facility NovoLOG FlexPen 100 units/mL injectable solution, 5 unit(s), Subcutaneous, BIDAC nystatin 100,000 units/g topical powder, 1 toby, Topical, BID, Not taking: No longer taking at facility ondansetron 4 mg oral tablet, disintegrating, 4 mg= 1 tab(s), Oral, q6h, PRN ONETOUCH DELICA PLUS LANCETS EXTRA FINE 33G MISC Pen needles, See Instructions, 11 refills Pen needles 5 mm, See Instructions, 11 refills Potter Caps, 1 cap(s), Oral, qDay rOPINIRole 0.25 mg oral tablet, 0.25 mg= 1 tab(s), Oral, BID Tessalon Perles 100 mg oral capsule, 100 mg= 1 cap(s), Oral, q8h, PRN, Not taking: No longer takingat facility torsemide 100 mg oral tablet, 50 mg= 0.5 tab(s), Oral, BID, 5 refills Toujeo Max SoloStar 300 units/mL subcutaneous solution, 20 unit(s), Subcutaneous, qDay, 11 refills Tums E-X 750 mg oral tablet, chewable, 750 mg= 1 tab(s), Chewed, BID venlafaxine 112.5 mg oral tablet, extended release, 112.5 mg= 1 tab(s), Oral, qDay, 3 refills, Not taking: No longer taking at facility Vitamin D3 50 mcg (2000 intl units) oral capsule, 50 mcg= 1 tab(s), Oral, Daily, 11 refills, Not taking: No longer taking at facility Zetia 10 mg oral tablet, 10 mg= 1 tab(s), Oral, qDay, 3 refills Allergies NKA Social History Alcohol Use: Never., 08/09/2018 Home/Environment Living situation: Home with assistance. Domestic Concerns: None. 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 Aneurysm: Maternal Uncle. Diabetes: Mother, Sister and Brother. Heart disease: Mother, Father, Sister and Brother. Hypertension: Mother, Father, Sister and Brother. Health Status Family Member(s) Immunizations pneumococcal 23-valent vaccine(Pneumovax: 0.5 unknown unit (04/22/17) SARS-CoV-2 mRNA (tozinameran) vaccine: 30 mcg (04/11/21) SARS-CoV-2 mRNA (tozinameran) vaccine: 30 mcg (03/21/21) tetanus/diphtheria/pertussMUL.ORD![id number]: 0.5 unknown unit (03/04/17) Digitally Signed by YASMINE DICKENS MD on 11/09/2024 01:04 PM [facility] [id number] Palliative care Progress note Date of Service 11/09/24 Palliative Care consulted as the result of a positive palliative care screen. Patient off the floorfor dialysis at the time of my evaluation. Will reattempt tomorrow. Digitally Signed by KOURTNEY HERBERT on 11/09/2024 03:27 PM [facility] [id number] Note Date of Service 11/09/2024 Chief Complaint Pneumonia, hyperkalemia Subjective Patient seen at bedside this morning. Chart reviewed. Discussed with medical staff. Rapid response called secondary to lethargy, increased work of breathing. Discussed with rapid response team and medical staff. Patient on CPAP does awaken to voice able to answer questions appropriately though somewhat tangential. Denies chest pain endorses shortness of breath denies hemoptysis. Denies abdominal pain, nausea/vomiting. Objective Vitals and Measurements T: 36.2 C (Skin) TMIN: 36.2 C (Skin) TMAX: 37.8 C (Axillary) HR: 79 (Monitored) RR: 18 BP: 165/73 SpO2: 97% WT: 112.5 kg Intake and Output 7AM Yesterday to 7AM Today Intake and Output (Last 24 hours) Intake Oral Intake 80.00 Output Stool Count 0.00 Urine Count 1.00 Total Summary Total Intake 80.00 Total Output 0.00 Fluid Balance 80.00 Physical Exam General: Drowsy evaluated on CPAP, awakens to voice answers questions appropriately though somewhattangential. HEENT: No Icterus Cardiac: S1, S2, regular Lungs: Diminished bilaterally with increased work of breathing Abdomen: Soft, Non tender, bowel sounds present Extremities: 2+ distal pulses, moving all 4 extremities freely Weight Dosing Weight: 112.5 kg (11/09/24) Medications Medications (17) Active Scheduled: (8) aspirin 81 mg Chewable 81 mg 1 tab(s), Oral, qDay atorvastatin 40 mg tablet 40 mg 1 tab(s), Oral, qDay azithromycin IV 500 mg 5 mL, IV Piggyback, qDay carvedilol 12.5 mg tablet 12.5 mg 1 tab(s), Oral, BIDM cefTRIAXone IVP syringe 2 gram(s) 20 mL, IV Push (INT), qDay heparin 5,000 units/mL (1 mL) vial 5,000 unit(s) 1 mL, Subcutaneous, q8h insulin glargine 10 unit(s) 0.1 mL, Subcutaneous (INT), qHS insulin lispro 100 units/mL Soln (3 mL) Give 0-5 units/dose, Subcutaneous, TIDAC Continuous: (0) PRN: (9) acetaminophen 325 mg Tablet 650 mg 2 tab(s), Oral, q6hr acetaminophen 325 mg Tablet 650 mg 2 tab(s), Oral, q4h acetaminophen 650 mg Suppository 650 mg 1 supp, Rectal, q4h Al hydrox/Mg hydrox/simethicone 200-200-20 mg/5 mL Susp UD 30 mL, Oral, q2h albuterol - ipratropium 2.5 mg-0.5 mg/3 mL Inhal Daria UD 3 mL, Inhalation, q4hRT bisacodyl 5 mg EC tablet 10 mg 2 tab(s), Oral, qDay dextrose 50% Solution Disp syringe 50 mL 25 gram(s) 50 mL, IV Push, AsDirected docusate-senna (Senokot S) 50 mg-8.6 mg Tablet 1 tab(s), Oral, BID melatonin 3 mg tablet 3 mg 1 tab(s), Oral, qHS Lab Results 11/09 02:56 WBC: 12.2 H Hgb: 11.2 L Hct: 34.0 Platelet: 164 Neutrophil %: 84.8 H Glucose Level: 173 H Sodium Level: 141 Potassium Level: 5.3 H BUN: 65.0 H Creatinine Lvl (s): 7.85 H 11/09 00:48 Potassium Level: 5.4 H 11/08 16:33 WBC: 12.4 H Hgb: 10.7 L Hct: 32.3 L Platelet: 178 Neutrophil %: 86.6 H Glucose Level: 261 H Sodium Level: 139 Potassium Level: 5.7 H BUN: 63.0 H Creatinine Lvl (s): 7.59 H Imaging Results and Diagnostics XR Chest 1 View Result Date: November 09, 2024 Verified By: GELACIO HE MD CLINICAL STATEMENT: IMPRESSION: Peripheral airspace disease in the right lung is slightly improved. Followto resolution CT Head or Brain w/o Contrast Result Date: November 08, 2024 Verified By: NAWAF CHOU MD CLINICAL STATEMENT: IMPRESSION: No acute intracranial abnormality. XR Chest 1 View Result Date: November 08, 2024 Verified By: TONY MANUEL MD CLINICAL STATEMENT: IMPRESSION: Airspace opacities most pronounced in the right lateral lung. Asymmetricappearance favors pneumonia and/or aspiration over edema. Small effusions not excluded. EKG EKG (ED) - Completed -- 11/08/24 16:23:00 EDT, 11/08/24 16:23:00 EDT Assessment/Plan Acute on chronic hypoxic respiratory failure with increased work of breathing Hyperkalemia, improving Community-acquired pneumonia Elevated troponin, likely supply/demand mismatch per Cardiology ESRD on hemodialysis, missed HD 11/08 Delirium secondary to above Type 2 diabetes mellitus HFpEF Diabetic neuropathy Coronary artery disease Hypertension Dyslipidemia PLAN: 58 years old female with past medical history significant for ESRD on hemodialysis, chronic hypoxicrespiratory failure on 4 L of oxygen via nasal cannula at home, type 2 diabetes mellitus on insulin, HFpEF, class III obesity, diabetic neuropathy, general anxiety disorder, coronary artery disease, h ypertension, dyslipidemia presented [facility] ER with a chief concern for chest pressure,nausea/vomiting, cough and shortness of breath. She is initially presented to [facility] ED earlier this morning with complaints of cough, nausea, vomiting and chest pressure. Chest x-ray showed finding of congestion/edema versus developing infectious or inflammatory process. White count was 14,000 with 88% neutrophils. BUN/creatinine was 62/7.17,potassium was elevated at 5.6. Troponins were not elevated. COVID/flu/RSV PCR was negative. Patientreceived doses of morphine and Zofran along with oral Lokelma for hyperkalemia however patient refused Lokelma. Patient was felt stable for discharge for dialysis early tomorrow morning and she was prescribed Zithromax, Zofran and Tessalon Perles. Patient went home and presented to [facility] ER with persistent shortness of breath, cough and nausea/vomiting. Vital signs, labs, imaging personally reviewed She was saturating well on her home 4 L of oxygen by nasal: Patient also appeared to be encephalopathic on my evaluation, she was oriented to place and person but not to time. CBC showed white count of 12,400 with left shift, hemoglobin of 10.7. CMP showed BUN/creatinine of 63/7.59, potassium of 5.7. proBNP of 14,000, troponin trended upward from 46-1 69. Chest x-ray done at [facility] showed airspace opacities most pronounced in the right lateral lung favoring pneumonia. EKG showed sinus rhythm with left bundle branch block with QTc of 451 ms [1] Patient with rapid response today secondary to increased lethargy and work of breathing, discussed with rapid response team and medical staff. ABG completed demonstrating CO2 retention, likely contributing to altered mental state as well, converted to BiPAP, consultation to pulmonary team for review and recommendations. Continue supportive measures aerosol treatments oxygen therapy as outlined above. Antibiotics IV continue for pneumonia, cultures and atypical workup requested. Cardiology team on consult for elevated troponin, input appreciated. Nephrology on consult for end-stage renal disease and electrolyte abnormalities. Patient received Lokelma as outlined above with improvement in potassium level. Home medication continued for underlying medical conditions. AM labs cbc, cmp Code status Full Code, confirmed with patient and family sister Stephy Roberts, called son Lakesha [phone] but not able to reach him, left requesting call back. Consultation to palliative care team requested. Prognosis remains guarded. The above discussed patient at bedside as well as family over the phone today as outlined above, patient and family's understanding and agreement with plan. Discussed with medical staff. Questions sought and answered. Level of Care Indication SD monitor (other: specify in note) DVT Prophylaxis Heparin SQ Maintenance IVF Indication NA / No maintenance IVF Indwelling Urinary Catheter Indication NA No indwelling catheter Anticipated Timeline of Discharge 1-2 days pending clinical course Anticipated DC Disposition _pending clinical course Time Spent 52 minutesd [1] History and Physical; RADHA HUMPHREYS MD 11/08/2024 20:53 EDT Digitally Signed by KYLE LOPES MD on 11/09/2024 03:25 PM [facility] [id number] Palliative care Consult note Date of Service 11/10/24 Reason for Consult positive palliative care screen Participants in Discussion patient, 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 Davis is a 58 year old female with a past medical history of ESRD on hemodialysis, chronic hypoxic respiratory failure on 4 L of oxygen via nasal cannula at home, type 2 diabetes mellitus on insulin, HFpEF, class III obesity, diabetic neuropathy, general anxiety disorder, coronary artery disease, hypertension, dyslipidemia presented to [facility] ER with a chief concern for chest pressure, nausea/vomiting, cough and shortness of breath admitted for acute on chronic hypoxic respiratory failure secondary to missed dialysis and pneumonia initially requiring Bipap. Hospital course complicated by elevated troponins with cardiology following. Palliative Care consulted as the result ofa positive palliative care screen. On inital two attempts to evaluate the patient, she was out the room for dialysis. Spoke with science liaison about her care. I met with the patient after returning from dialysis. She is immediately tearful and was very emotional throughout our conversation. She is orientedx3 but tells me that she lives with her sister as she has been unable to live independently for 6-7 years. She states that M-F she goes to a care center while her sister works and she has friends there. Her sister makes her meals but she is able to help clean the dishes. They have come up with a system that works for them. Throughout our conversation she has a very difficult time recalling names of family members. She is very worried that her son (name may be Will, Rommel, Bill or Kvng) is trying to force her to live somewhere other than with her sister and is threatening to not allow her to see him or her grandchildren again if she does not comply. This is very distressing to her. She does not understand why she has to stay at the hospital and why she cannot go home now. Review of systems limited due to emotional distress and mental status. She perseverates on "being fine and feeling fine" so she should get to go home with her sister June Review of Systems Limited, as above Physical Exam Vitals and Measurements T: 36.2 C (Skin) TMIN: 36.2 C (Skin) TMAX: 37.8 C (Axillary) HR: 74 (Monitored) RR: 18 BP: 174/83 SpO2: 97% WT: 112.5 kg Weight Dosing Weight: 112.5 kg (08/13/25) General: Awake alert no acute respiratory distress Respiratory: Easy and even respirations, normal work of breathing, Nasal cannula in place GI: obese, soft, nontender to palpation Neuro: Alert oriented x 3, nonfocal exam Mood: tearful, insight and judgement poor Lab Results 11/09 02:56 WBC: 12.2 H Hgb: 11.2 L Hct: 34.0 Platelet: 164 Neutrophil %: 84.8 H Glucose Level: 173 H Sodium Level: 141 Potassium Level: 5.3 H BUN: 65.0 H Creatinine Lvl (s): 7.85 H 11/09 00:48 Potassium Level: 5.4 H 11/08 16:33 WBC: 12.4 H Hgb: 10.7 L Hct: 32.3 L Platelet: 178 Neutrophil %: 86.6 H Glucose Level: 261 H Sodium Level: 139 Potassium Level: 5.7 H BUN: 63.0 H Creatinine Lvl (s): 7.59 H Imaging Results and Diagnostics XR Chest 1 View Result Date: November 09, 2024 Verified By: GELACIO HE MD CLINICAL STATEMENT: IMPRESSION: Peripheral airspace disease in the right lung is slightly improved. Followto resolution CT Head or Brain w/o Contrast Result Date: November 08, 2024 Verified By: NAWAF CHOU MD CLINICAL STATEMENT: IMPRESSION: No acute intracranial abnormality. XR Chest 1 View Result Date: November 08, 2024 Verified By: TONY MANUEL MD CLINICAL STATEMENT: IMPRESSION: Airspace opacities most pronounced in the right lateral lung. Asymmetricappearance favors pneumonia and/or aspiration over edema. Small effusions not excluded. All pertinent labs and radiology data reviewed. Palliative Assessment and Recommendations Palliative Care encounter for a 58 year old female with a past medical history of ESRD on hemodialysis, chronic hypoxic respiratory failure on 4 L of oxygen via nasal cannula at home, type 2 diabetesmellitus on insulin, HFpEF, class III obesity, diabetic neuropathy, general anxiety disorder, coronary artery disease, hypertension, dyslipidemia presented to [facility] ER with a chief concernfor chest pressure, nausea/vomiting, cough and shortness of breath admitted for acute on chronic hypoxic respiratory failure secondary to missed dialysis and pneumonia initially requiring Bipap. Hospital course complicated by elevated troponins with cardiology following. Palliative Care consulted as the result of a positive palliative care screen. Goals of Care/Disposition CODE STATUS: Full Code Advanced Directives: None on File. Per science liaison, patient's daughter Madi called Nursing Unit and stated she has POA paperwork naming her as primary agent. Until documentation is obtained, KODY andsurrogate decision maker would be the consensus of her adult children, Madi and Will/Bill. If they are unavailable, her sister would be next contact. Of Note, patient is oriented x3, while I am concerned she may have difficulty understanding the complexities of her medical condition in order to support independent decision making for critical decisions, she would likely be able to complete a HCPOA should she wish to name her sister her surrogate. Emergency contact on file is June, patient's sister. Called and left a message asking for a returncall. Will attempt to get contact information for patients children. Patient is unable to give thatinformation. Zayda tells me that she and her daughter Madi are coming to visit tomorrow. Ultimately, patient's wishes appear to be to return home to her sisters house and continue receiving care as she was prior to this hospitalization. Palliative Care will continue to follow to assist with identifying surrogate decision makers and goals of care conversations as appropriate Problem List/Past Medical History Ongoing (HFpEF) heart failure with preserved ejection fraction Anemia Anxiety Back pain Breast cancer screening CAD (coronary artery disease) Chronic constipation Chronic headaches Chronic respiratory failure Class 3 obesity Congestive heart failure Diabetic neuropathy Diabetic retinopathy DM type 2 with diabetic mixed hyperlipidemia 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 to type 2 diabetes mellitus Episode of shaking ESRD on dialysis Generalized anxiety disorder Hammertoe of right foot Hearing loss History of stroke Hyperlipidemia Hypertension Hypoxia Iron deficiency anemia Jaundice Low back pain Major depressive disorder Mass of left lower leg Medicare annual wellness visit, subsequent Mental status alteration On anticoagulant therapy On home oxygen therapy Pneumonia Postmenopausal Screening for breast cancer Screening for colon cancer Spasm of left trapezius muscle Systolic murmur Type 2 diabetes mellitus Vitamin D deficiency Historical Acute hypoxemic respiratory failure due to COVID-19 Anxiety Anxiety and depression AV fistula thrombosis CKD stage 3 secondary to diabetes COVID-19 Depression Depression Diabetes type 2, uncontrolled ESRD on hemodialysis Eustachian tube dysfunction Fall Forehead abrasion Hypokalemia Left shoulder pain Mental status change resolved Pneumonia due to COVID-19 virus Postmenopausal vaginal bleeding Psychosis Respiratory insufficiency Slurred speech Stage 4 chronic kidney disease URI (upper respiratory infection) Procedure/Surgical History Fistula: 03/30/23 Cholecystectomy: 03/30/22 Echocardiogram: 01/22/22 Cardiovascular stress testin01/10/22 Fistula: 2021 Cardiac catheterization: 05/27/21 Cardiovascular stress testin04/19/21 Echocardiogram: 01/21/21 Doppler ultrasound of bilateral carotid arteries: 08/21/20 Appendectomy Stent Medications Inpatient acetaminophen, 650 mg= 2 tab(s), Oral, q6hr, PRN aspirin 81 mg oral tablet, chewable, 81 mg= 1 tab(s), Oral, qDay atorvastatin, 40 mg= 1 tab(s), Oral, qDay Coreg, 12.5 mg= 1 tab(s), Oral, BIDM Dextrose 50% IV Push, 25 gram(s)= 50 mL, IV Push, AsDirected, PRN Dulcolax Laxative, 10 mg= 2 tab(s), Oral, qDay, PRN DuoNeb, 3 mL, Inhalation, q4hRT, PRN heparin 5000 units/mL injection, 5000 unit(s)= 1 mL, Subcutaneous, q8h HumaLOG 100 units/mL subcutaneous solution, Give 0-5 units/dose, Subcutaneous, TIDAC Lantus, 10 unit(s)= 0.1 mL, Subcutaneous (INT), qHS Maalox, 30 mL, Oral, q2h, PRN melatonin, 3 mg= 1 tab(s), Oral, qHS, PRN Rocephin, 2 gram(s)= 20 mL, IV Push (INT), qDay Senokot S, 1 tab(s), Oral, BID, PRN Tylenol, 650 mg= 2 tab(s), Oral, q4h, PRN Tylenol, 650 mg= 1 supp, Rectal, q4h, PRN Zithromax IV Home acetaminophen 325 mg oral tablet, 650 mg= 2 tab(s), Oral, q6h, PRN allopurinol 100 mg oral tablet, 100 mg= 1 tab(s), Oral, qDay, 3 refills amLODIPine 10 mg oral tablet, 10 mg= 1 tab(s), Oral, qDay, 3 refills aspirin 81 mg oral delayed release tablet, 81 mg= 1 tab(s), Oral, qDay atorvastatin 80 mg oral tablet, 80 mg= 1 tab(s), Oral, qDay, 3 refills Blood Glucose Test Machine, See Instructions Blood Glucose Test Strips, See Instructions, 6 refills Blood Pressure Cuff, See Instructions calcium acetate 667 mg oral capsule, 1334 mg= 2 cap(s), Oral, TID Coreg 12.5 mg oral tablet, 12.5 mg= 1 tab(s), Oral, BID, 3 refills DME MISCellaneous, See Instructions DME MISCellaneous, See Instructions DME MISCellaneous, See Instructions DME MISCellaneous, See Instructions, 11 refills doxycycline hyclate 100 mg oral capsule, 100 mg= 1 cap(s), PO, BID, Not taking: No longer taking atfacility FreeStyle Navid 3 [place], See Instructions FreeStyle Navid 3+ Sensors, See Instructions, 6 refills gabapentin 100 mg oral capsule, 100 mg= 1 cap(s), Oral, BID, 5 refills hydrALAZINE 100 mg oral tablet, 100 mg= 1 tab(s), Oral, TID, 3 refills Lancets, See Instructions, 6 refills lidocaine-prilocaine 2.5%-2.5% topical cream, 1 toby, Topical, Once melatonin 5 mg oral tablet, 5 mg= 1 tab(s), Oral, qHS, PRN, Not taking: No longer taking at facility Nephro-Todd oral tablet, 1 tab(s), Oral, qDay, Not taking: No longer taking at facility NovoLOG FlexPen 100 units/mL injectable solution, 5 unit(s), Subcutaneous, BIDAC nystatin 100,000 units/g topical powder, 1 toby, Topical, BID, Not taking: No longer taking at facility ondansetron 4 mg oral tablet, disintegrating, 4 mg= 1 tab(s), Oral, q6h, PRN ONETOUCH DELICA PLUS LANCETS EXTRA FINE 33G MISC Pen needles, See Instructions, 11 refills Pen needles 5 mm, See Instructions, 11 refills Alok Caps, 1 cap(s), Oral, qDay rOPINIRole 0.25 mg oral tablet, 0.25 mg= 1 tab(s), Oral, BID Tessalon Perles 100 mg oral capsule, 100 mg= 1 cap(s), Oral, q8h, PRN, Not taking: No longer takingat facility torsemide 100 mg oral tablet, 50 mg= 0.5 tab(s), Oral, BID, 5 refills Toujeo Max SoloStar 300 units/mL subcutaneous solution, 20 unit(s), Subcutaneous, qDay, 11 refills Tums E-X 750 mg oral tablet, chewable, 750 mg= 1 tab(s), Chewed, BID venlafaxine 112.5 mg oral tablet, extended release, 112.5 mg= 1 tab(s), Oral, qDay, 3 refills, Not taking: No longer taking at facility Vitamin D3 50 mcg (2000 intl units) oral capsule, 50 mcg= 1 tab(s), Oral, Daily, 11 refills, Not taking: No longer taking at facility Zetia 10 mg oral tablet, 10 mg= 1 tab(s), Oral, qDay, 3 refills Allergies NKA Social History Alcohol Use: Never., 08/09/2018 Home/Environment Living situation: Home with assistance. Domestic Concerns: None. 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 Aneurysm: Maternal Uncle. Diabetes: Mother, Sister and Brother. Heart disease: Mother, Father, Sister and Brother. Hypertension: Mother, Father, Sister and Brother. Health Status Family Member(s) Code Status Code Status - Ordered -- 11/08/24 20:46:00 EDT, Full Code, Constant Order Digitally Signed by KOURTNEY HERBERT on 11/10/2024 08:26 PM Digitally Signed by KOURTNEY HERBERT on 11/11/2024 11:11 AM [id number] Consult note Date of Service 11/09/2024 Reason for Consultation Elevated troponin History of Present Illness Patient is a 58-year-old female with a past medical history of CAD status post LAD PCI and moderateproximal RCA disease, chronic left bundle branch block, mild MS, obesity, type 2 diabetes, chronic hypoxic respiratory failure on 4 L home oxygen, ESRD on hemodialysis, hypertension, hyperlipidemia who presented with chest pressure, nausea vomiting, cough, shortness of breath and was found to have delirium, community-acquired pneumonia, missed hemodialysis. Cardiology is being consulted for elevated troponins. Patient currently denies any chest discomfort however is on BiPAP, plan for urgent dialysis today. Denies any palpitations orthopnea PND or lower extremity swelling. She follows with Dr. Crow and was last seen a few weeks ago. Patient had left heart catheterization July 2022 that showed moderate proximal RCA disease 60% medically managed, patent LAD stent, moderate left circumflex disease, 90% second OM disease small vessel so no intervention. Cardiology consulted for elevated troponin. Review of Systems 12 point ROS reviewed and negative unless stated above. Physical Exam Vitals and Measurements T: 36.2 C (Skin) TMIN: 36.2 C (Skin) TMAX: 37.8 C (Axillary) HR: 74 (Monitored) RR: 18 BP: 156/75 SpO2: 97% WT: 112.5 kg Weight Dosing Weight: 112.5 kg (11/09/24) GENERAL: Pt is comfortable in bed. On BiPAP NECK: No JVD or Carotid Bruit CVS: S1 & S2 audible, Regular Rate and Rhythm, No Murmurs LUNG: Bronchial breath sounds bilateral GI: + BS, Abdomen is Soft EXTREMITIES: Mild lower extremity edema SKIN: Warm & Dry Lab Results 11/09 02:56 WBC: 12.2 H Hgb: 11.2 L Hct: 34.0 Platelet: 164 Neutrophil %: 84.8 H Glucose Level: 173 H Sodium Level: 141 Potassium Level: 5.3 H BUN: 65.0 H Creatinine Lvl (s): 7.85 H 11/09 00:48 Potassium Level: 5.4 H 11/08 16:33 WBC: 12.4 H Hgb: 10.7 L Hct: 32.3 L Platelet: 178 Neutrophil %: 86.6 H Glucose Level: 261 H Sodium Level: 139 Potassium Level: 5.7 H BUN: 63.0 H Creatinine Lvl (s): 7.59 H Assessment/Plan Elevated protein likely secondary to supply/demand mismatch in the setting of missed hemodialysis Acute on chronic hypoxic respiratory failure secondary to missed hemodialysis and PNA Community-acquired pneumonia Delirium Chronic hypoxic respiratory failure on 4 L home oxygen ESRD on hemodialysis History of CAD s/p LAD PCI, moderate proximal RCA disease Hypertension Hyperlipidemia Obesity Chronic left bundle branch block Mild MS Plan Patient denies having any chest discomfort, troponins are elevated however fairly flat will repeat in a.m. to ensure downtrending. EKG is nonischemic and unchanged from previous, she has a chronic left bundle branch block. Surface echo done 05/23 showing EF of 55 to 60% and mild MS. Likely elevationof troponin in the setting of missed hemodialysis. Plan for hemodialysis today. Continue with aspirin, statin, Coreg and resume other cardiac meds as tolerated by BP. Surface echo ordered by primary team will follow-up on results. Rest of management per primary team. Continue to monitor closely. Cardiology will continue to follow patient. Problem List/Past Medical History Ongoing (HFpEF) heart failure with preserved ejection fraction Anemia Anxiety Back pain Breast cancer screening CAD (coronary artery disease) Chronic constipation Chronic headaches Chronic respiratory failure Class 3 obesity Congestive heart failure Diabetic neuropathy Diabetic retinopathy DM type 2 with diabetic mixed hyperlipidemia 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 to type 2 diabetes mellitus Episode of shaking ESRD on dialysis Generalized anxiety disorder Hammertoe of right foot Hearing loss History of stroke Hyperlipidemia Hypertension Hypoxia Iron deficiency anemia Jaundice Low back pain Major depressive disorder Mass of left lower leg Medicare annual wellness visit, subsequent Mental status alteration On anticoagulant therapy On home oxygen therapy Pneumonia Postmenopausal Screening for breast cancer Screening for colon cancer Spasm of left trapezius muscle Systolic murmur Type 2 diabetes mellitus Vitamin D deficiency Historical Acute hypoxemic respiratory failure due to COVID-19 Anxiety Anxiety and depression AV fistula thrombosis CKD stage 3 secondary to diabetes COVID-19 Depression Depression Diabetes type 2, uncontrolled ESRD on hemodialysis Eustachian tube dysfunction Fall Forehead abrasion Hypokalemia Left shoulder pain Mental status change resolved Pneumonia due to COVID-19 virus Postmenopausal vaginal bleeding Psychosis Respiratory insufficiency Slurred speech Stage 4 chronic kidney disease URI (upper respiratory infection) Procedure/Surgical History Fistula: 03/30/23 Cholecystectomy: 03/30/22 Echocardiogram: 01/22/22 Cardiovascular stress testin01/10/22 Fistula: 2021 Cardiac catheterization: 05/27/21 Cardiovascular stress testin04/19/21 Echocardiogram: 01/21/21 Doppler ultrasound of bilateral carotid arteries: 08/21/20 Appendectomy Stent Medications Inpatient acetaminophen, 650 mg= 2 tab(s), Oral, q6hr, PRN aspirin 81 mg oral tablet, chewable, 81 mg= 1 tab(s), Oral, qDay atorvastatin, 40 mg= 1 tab(s), Oral, qDay Coreg, 12.5 mg= 1 tab(s), Oral, BIDM Dextrose 50% IV Push, 25 gram(s)= 50 mL, IV Push, AsDirected, PRN Dulcolax Laxative, 10 mg= 2 tab(s), Oral, qDay, PRN DuoNeb, 3 mL, Inhalation, q4hRT, PRN heparin 5000 units/mL injection, 5000 unit(s)= 1 mL, Subcutaneous, q8h HumaLOG 100 units/mL subcutaneous solution, Give 0-5 units/dose, Subcutaneous, TIDAC Lantus, 10 unit(s)= 0.1 mL, Subcutaneous (INT), qHS Maalox, 30 mL, Oral, q2h, PRN melatonin, 3 mg= 1 tab(s), Oral, qHS, PRN Rocephin, 2 gram(s)= 20 mL, IV Push (INT), qDay Senokot S, 1 tab(s), Oral, BID, PRN Tylenol, 650 mg= 2 tab(s), Oral, q4h, PRN Tylenol, 650 mg= 1 supp, Rectal, q4h, PRN Zithromax IV Home acetaminophen 325 mg oral tablet, 650 mg= 2 tab(s), Oral, q6h, PRN allopurinol 100 mg oral tablet, 100 mg= 1 tab(s), Oral, qDay, 3 refills amLODIPine 10 mg oral tablet, 10 mg= 1 tab(s), Oral, qDay, 3 refills aspirin 81 mg oral delayed release tablet, 81 mg= 1 tab(s), Oral, qDay atorvastatin 80 mg oral tablet, 80 mg= 1 tab(s), Oral, qDay, 3 refills Blood Glucose Test Machine, See Instructions Blood Glucose Test Strips, See Instructions, 6 refills Blood Pressure Cuff, See Instructions calcium acetate 667 mg oral capsule, 1334 mg= 2 cap(s), Oral, TID Coreg 12.5 mg oral tablet, 12.5 mg= 1 tab(s), Oral, BID, 3 refills DME MISCellaneous, See Instructions DME MISCellaneous, See Instructions DME MISCellaneous, See Instructions DME MISCellaneous, See Instructions, 11 refills doxycycline hyclate 100 mg oral capsule, 100 mg= 1 cap(s), PO, BID, Not taking: No longer taking atfacility FreeStyle Navid 3 [place], See Instructions FreeStyle Navid 3+ Sensors, See Instructions, 6 refills gabapentin 100 mg oral capsule, 100 mg= 1 cap(s), Oral, BID, 5 refills hydrALAZINE 100 mg oral tablet, 100 mg= 1 tab(s), Oral, TID, 3 refills Lancets, See Instructions, 6 refills lidocaine-prilocaine 2.5%-2.5% topical cream, 1 toby, Topical, Once melatonin 5 mg oral tablet, 5 mg= 1 tab(s), Oral, qHS, PRN, Not taking: No longer taking at facility Nephro-Todd oral tablet, 1 tab(s), Oral, qDay, Not taking: No longer taking at facility NovoLOG FlexPen 100 units/mL injectable solution, 5 unit(s), Subcutaneous, BIDAC nystatin 100,000 units/g topical powder, 1 toby, Topical, BID, Not taking: No longer taking at facility ondansetron 4 mg oral tablet, disintegrating, 4 mg= 1 tab(s), Oral, q6h, PRN ONETOUCH DELICA PLUS LANCETS EXTRA FINE 33G MISC Pen needles, See Instructions, 11 refills Pen needles 5 mm, See Instructions, 11 refills Potter Caps, 1 cap(s), Oral, qDay rOPINIRole 0.25 mg oral tablet, 0.25 mg= 1 tab(s), Oral, BID Tessalon Perles 100 mg oral capsule, 100 mg= 1 cap(s), Oral, q8h, PRN, Not taking: No longer takingat facility torsemide 100 mg oral tablet, 50 mg= 0.5 tab(s), Oral, BID, 5 refills Toujeo Max SoloStar 300 units/mL subcutaneous solution, 20 unit(s), Subcutaneous, qDay, 11 refills Tums E-X 750 mg oral tablet, chewable, 750 mg= 1 tab(s), Chewed, BID venlafaxine 112.5 mg oral tablet, extended release, 112.5 mg= 1 tab(s), Oral, qDay, 3 refills, Not taking: No longer taking at facility Vitamin D3 50 mcg (2000 intl units) oral capsule, 50 mcg= 1 tab(s), Oral, Daily, 11 refills, Not taking: No longer taking at facility Zetia 10 mg oral tablet, 10 mg= 1 tab(s), Oral, qDay, 3 refills Allergies NKA Social History Alcohol Use: Never., 08/09/2018 Home/Environment Living situation: Home with assistance. Domestic Concerns: None. 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 Aneurysm: Maternal Uncle. Diabetes: Mother, Sister and Brother. Heart disease: Mother, Father, Sister and Brother. Hypertension: Mother, Father, Sister and Brother. Health Status Family Member(s) Immunizations pneumococcal 23-valent vaccine(Pneumovax: 0.5 unknown unit (04/22/17) SARS-CoV-2 mRNA (tozinameran) vaccine: 30 mcg (04/11/21) SARS-CoV-2 mRNA (tozinameran) vaccine: 30 mcg (03/21/21) tetanus/diphtheria/pertussMUL.ORD![id number]: 0.5 unknown unit (03/04/17) Digitally Signed by YASMINE DICKENS MD on 11/09/2024 01:04 PM [id number] Consult note Date of Service 11/09 History of Present Illness 58-year-old white female chronic kidney disease likely secondary to diabetic hypertensive nephropathy on hemodialysis Thursday via a right upper extremity AV fistula at [facility] under the expert care of Dr. Wise. She did go Thursday but missed her treatment yesterday as she was in the emergency room. She became short of breath yesterday no chest pain no nausea vomitingno constipation no fevers chills no new rashes arthralgias she makes scant urine had no difficulties micturating went to the emergency department found to have pneumonia and has been admitted historyis difficult she falls asleep easily during the exam and is very scant on the details of her medical history 67 Past medical history significant for 1. Chronic kidney disease 2. Diabetes 3. Hypertension 4. Hyperlipidemia 5. History of pneumonia was in [facility] earlier in September 6. Obesity 7. Anemia 8. Back pain 9. Coronary artery disease 10. Chronic respiratory failure 11. Generalized anxiety disorder 12. Hearing loss 13. 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 In general she is a overweight white female but not appear to be in any distress she is on BiPAP answers a few yes or no questions goes back to sleep he is woken up frequently during the exam. Very vague on the details of her medical history her neck is supple no lymphadenopathy heart had a regularrhythm normal S1-2 lungs clear to auscultation anteriorly abdomen had bowel sounds positive x 4 soft nontender not distended extremities are warm and dry with only trace pretibial edema bilaterally Lab Results 11/09 02:56 WBC: 12.2 H Hgb: 11.2 L Hct: 34.0 Platelet: 164 Neutrophil %: 84.8 H Glucose Level: 173 H Sodium Level: 141 Potassium Level: 5.3 H BUN: 65.0 H Creatinine Lvl (s): 7.85 H 11/09 00:48 Potassium Level: 5.4 H 11/08 16:33 WBC: 12.4 H Hgb: 10.7 L Hct: 32.3 L Platelet: 178 Neutrophil %: 86.6 H Glucose Level: 261 H Sodium Level: 139 Potassium Level: 5.7 H BUN: 63.0 H Creatinine Lvl (s): 7.59 H Assessment/Plan Assessment plan 1. End-stage renal disease she missed her dialysis yesterday to make sure she gets her dialysis today 2. Hyperkalemia will correct with her dialysis today 3. DyspneaChest x-ray yesterday showed peripheral airspace disease right lung slightly improved follow-up for resolution chest x-ray from the displayed findings suggestive of adjustment/edema versus developing infectious or plantar process will try and challenge her dry weight with dialysis keke blood pressure allows she is on antibiotics for suspected pneumonia 4. Anemia hemoglobin is good no need for EPO 5.Diabetes continue tight blood glucose control Problem List/Past Medical History Ongoing (HFpEF) heart failure with preserved ejection fraction Anemia Anxiety Back pain Breast cancer screening CAD (coronary artery disease) Chronic constipation Chronic headaches Chronic respiratory failure Class 3 obesity Congestive heart failure Diabetic neuropathy Diabetic retinopathy DM type 2 with diabetic mixed hyperlipidemia 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 to type 2 diabetes mellitus Episode of shaking ESRD on dialysis Generalized anxiety disorder Hammertoe of right foot Hearing loss History of stroke Hyperlipidemia Hypertension Hypoxia Iron deficiency anemia Jaundice Low back pain Major depressive disorder Mass of left lower leg Medicare annual wellness visit, subsequent Mental status alteration On anticoagulant therapy On home oxygen therapy Pneumonia Postmenopausal Screening for breast cancer Screening for colon cancer Spasm of left trapezius muscle Systolic murmur Type 2 diabetes mellitus Vitamin D deficiency Historical Acute hypoxemic respiratory failure due to COVID-19 Anxiety Anxiety and depression AV fistula thrombosis CKD stage 3 secondary to diabetes COVID-19 Depression Depression Diabetes type 2, uncontrolled ESRD on hemodialysis Eustachian tube dysfunction Fall Forehead abrasion Hypokalemia Left shoulder pain Mental status change resolved Pneumonia due to COVID-19 virus Postmenopausal vaginal bleeding Psychosis Respiratory insufficiency Slurred speech Stage 4 chronic kidney disease URI (upper respiratory infection) Procedure/Surgical History Fistula: 03/30/23 Cholecystectomy: 03/30/22 Echocardiogram: 01/22/22 Cardiovascular stress testin01/10/22 Fistula: 2021 Cardiac catheterization: 05/27/21 Cardiovascular stress testin04/19/21 Echocardiogram: 01/21/21 Doppler ultrasound of bilateral carotid arteries: 08/21/20 Appendectomy Stent Medications Inpatient acetaminophen, 650 mg= 2 tab(s), Oral, q6hr, PRN aspirin 81 mg oral tablet, chewable, 81 mg= 1 tab(s), Oral, qDay atorvastatin, 40 mg= 1 tab(s), Oral, qDay Coreg, 12.5 mg= 1 tab(s), Oral, BIDM Dextrose 50% IV Push, 25 gram(s)= 50 mL, IV Push, AsDirected, PRN Dulcolax Laxative, 10 mg= 2 tab(s), Oral, qDay, PRN DuoNeb, 3 mL, Inhalation, q4hRT, PRN heparin 5000 units/mL injection, 5000 unit(s)= 1 mL, Subcutaneous, q8h HumaLOG 100 units/mL subcutaneous solution, Give 0-5 units/dose, Subcutaneous, TIDAC Lantus, 10 unit(s)= 0.1 mL, Subcutaneous (INT), qHS Maalox, 30 mL, Oral, q2h, PRN melatonin, 3 mg= 1 tab(s), Oral, qHS, PRN Rocephin, 2 gram(s)= 20 mL, IV Push (INT), qDay Senokot S, 1 tab(s), Oral, BID, PRN Tylenol, 650 mg= 2 tab(s), Oral, q4h, PRN Tylenol, 650 mg= 1 supp, Rectal, q4h, PRN Zithromax IV Home acetaminophen 325 mg oral tablet, 650 mg= 2 tab(s), Oral, q6h, PRN allopurinol 100 mg oral tablet, 100 mg= 1 tab(s), Oral, qDay, 3 refills amLODIPine 10 mg oral tablet, 10 mg= 1 tab(s), Oral, qDay, 3 refills aspirin 81 mg oral delayed release tablet, 81 mg= 1 tab(s), Oral, qDay atorvastatin 80 mg oral tablet, 80 mg= 1 tab(s), Oral, qDay, 3 refills Blood Glucose Test Machine, See Instructions Blood Glucose Test Strips, See Instructions, 6 refills Blood Pressure Cuff, See Instructions calcium acetate 667 mg oral capsule, 1334 mg= 2 cap(s), Oral, TID Coreg 12.5 mg oral tablet, 12.5 mg= 1 tab(s), Oral, BID, 3 refills DME MISCellaneous, See Instructions DME MISCellaneous, See Instructions DME MISCellaneous, See Instructions DME MISCellaneous, See Instructions, 11 refills doxycycline hyclate 100 mg oral capsule, 100 mg= 1 cap(s), PO, BID, Not taking: No longer taking atfacility FreeStyle Navid 3 [place], See Instructions FreeStyle Navid 3+ Sensors, See Instructions, 6 refills gabapentin 100 mg oral capsule, 100 mg= 1 cap(s), Oral, BID, 5 refills hydrALAZINE 100 mg oral tablet, 100 mg= 1 tab(s), Oral, TID, 3 refills Lancets, See Instructions, 6 refills lidocaine-prilocaine 2.5%-2.5% topical cream, 1 toby, Topical, Once melatonin 5 mg oral tablet, 5 mg= 1 tab(s), Oral, qHS, PRN, Not taking: No longer taking at facility Nephro-Todd oral tablet, 1 tab(s), Oral, qDay, Not taking: No longer taking at facility NovoLOG FlexPen 100 units/mL injectable solution, 5 unit(s), Subcutaneous, BIDAC nystatin 100,000 units/g topical powder, 1 toby, Topical, BID, Not taking: No longer taking at facility ondansetron 4 mg oral tablet, disintegrating, 4 mg= 1 tab(s), Oral, q6h, PRN ONETOUCH DELICA PLUS LANCETS EXTRA FINE 33G MISC Pen needles, See Instructions, 11 refills Pen needles 5 mm, See Instructions, 11 refills Potter Caps, 1 cap(s), Oral, qDay rOPINIRole 0.25 mg oral tablet, 0.25 mg= 1 tab(s), Oral, BID Tessalon Perles 100 mg oral capsule, 100 mg= 1 cap(s), Oral, q8h, PRN, Not taking: No longer takingat facility torsemide 100 mg oral tablet, 50 mg= 0.5 tab(s), Oral, BID, 5 refills Toujeo Max SoloStar 300 units/mL subcutaneous solution, 20 unit(s), Subcutaneous, qDay, 11 refills Tums E-X 750 mg oral tablet, chewable, 750 mg= 1 tab(s), Chewed, BID venlafaxine 112.5 mg oral tablet, extended release, 112.5 mg= 1 tab(s), Oral, qDay, 3 refills, Not taking: No longer taking at facility Vitamin D3 50 mcg (2000 intl units) oral capsule, 50 mcg= 1 tab(s), Oral, Daily, 11 refills, Not taking: No longer taking at facility Zetia 10 mg oral tablet, 10 mg= 1 tab(s), Oral, qDay, 3 refills Allergies NKA Social History Alcohol Use: Never., 08/09/2018 Home/Environment Living situation: Home with assistance. Domestic Concerns: None. 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 Aneurysm: Maternal Uncle. Diabetes: Mother, Sister and Brother. Heart disease: Mother, Father, Sister and Brother. Hypertension: Mother, Father, Sister and Brother. Health Status Family Member(s) Immunizations pneumococcal 23-valent vaccine(Pneumovax: 0.5 unknown unit (04/22/17) SARS-CoV-2 mRNA (tozinameran) vaccine: 30 mcg (04/11/21) SARS-CoV-2 mRNA (tozinameran) vaccine: 30 mcg (03/21/21) tetanus/diphtheria/pertussMUL.ORD![id number]: 0.5 unknown unit (03/04/17) Digitally Signed by COREY RAGLAND MD on 11/09/2024 11:19 AM [id number] Pulmonary Consult note Date of Service 11/09/2024 Reason for Consultation Respiratory failure Referring Physician Dr. Lopes History of Present Illness Patient is a 58-year-old white female with history of end-stage kidney disease on hemodialysis as well as history of HFpEF and obesity on home oxygen who presented to the [facility] emergency room withincreasing shortness of breath. She was treated symptomatically and discharged but returned to the emergency room with worsening shortness of breath. She was found to be quite hypoxic. Chest x- ray showed pneumonia. Patient was admitted and started on oxygen antibiotics. Today, a rapid response was called due to increased respiratory distress. The patient was placed on BPAP 16/8 CWP with FiO2 40% with significant improvement in work of breathing. Chest x-ray today confirmed the presence of an extensive right-sided pneumonia She has history of end-stage kidney disease on hemodialysis as well as history of HFpEF with preserved ejection fraction and mild pulmonary hypertension with RVSP at 35 mmHg as of last year. She has history of diabetes and diabetic neuropathy and hypertension. She is morbidly obese with probable obstructive sleep apnea not on home PAP therapy. Review of Systems The patient is lethargic. However, there is not been any mention of nausea or vomiting or diarrhea or aspiration or hemoptysis or fevers or chills or rigors Physical Exam Vitals and Measurements T: 37.8 C (Axillary) TMIN: 36.7 C (Oral) TMAX: 37.8 C (Axillary) HR: 76 (Monitored) RR: 15 (Total) BP: 133/66 SpO2: 95% No qualifying data available. Sleeping comfortably with BPAP on with nasal oral mask. Chest is symmetrical. Good chest movement. Lungs are clear and equal bilaterally without wheezing. Heart sounds are normal. No gallops or murmurs. Abdomen is morbidly obese but nontender. Extremities show no edema. Lab Results 11/09 02:56 WBC: 12.2 H Hgb: 11.2 L Hct: 34.0 Platelet: 164 Neutrophil %: 84.8 H Glucose Level: 173 H Sodium Level: 141 Potassium Level: 5.3 H BUN: 65.0 H Creatinine Lvl (s): 7.85 H Arterial blood gases 7.38, 47, 72, 93% Imaging Results and Diagnostics Chest x-ray shows a right-sided infiltrate Assessment/Plan 1. Acute on chronic hypoxic respiratory failure with increased work of breathing 2. Community-acquired right lung pneumonia 3. History of obesity with probable obesity hypoventilation syndrome and mild hypercapnia 4. History of end-stage kidney disease and hypertension and diabetes Recommendations: 1. Continue BPAP 16/8 CWP with FiO2 40% for increased work of breathing 2. May remove BPAP for meals 3. Continue Rocephin and azithromycin for pneumonia 4. Obtain urine pneumococcal and Legionella antigens 5. Continue DuoNeb aerosols 6. Continue DVT prophylaxis Will follow Problem List/Past Medical History Ongoing (HFpEF) heart failure with preserved ejection fraction Anemia Anxiety Back pain Breast cancer screening CAD (coronary artery disease) Chronic constipation Chronic headaches Chronic respiratory failure Class 3 obesity Congestive heart failure Diabetic neuropathy Diabetic retinopathy DM type 2 with diabetic mixed hyperlipidemia 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 to type 2 diabetes mellitus Episode of shaking ESRD on dialysis Generalized anxiety disorder Hammertoe of right foot Hearing loss History of stroke Hyperlipidemia Hypertension Hypoxia Iron deficiency anemia Jaundice Low back pain Major depressive disorder Mass of left lower leg Medicare annual wellness visit, subsequent Mental status alteration On anticoagulant therapy On home oxygen therapy Pneumonia Postmenopausal Screening for breast cancer Screening for colon cancer Spasm of left trapezius muscle Systolic murmur Type 2 diabetes mellitus Vitamin D deficiency Historical Acute hypoxemic respiratory failure due to COVID-19 Anxiety Anxiety and depression AV fistula thrombosis CKD stage 3 secondary to diabetes COVID-19 Depression Depression Diabetes type 2, uncontrolled ESRD on hemodialysis Eustachian tube dysfunction Fall Forehead abrasion Hypokalemia Left shoulder pain Mental status change resolved Pneumonia due to COVID-19 virus Postmenopausal vaginal bleeding Psychosis Respiratory insufficiency Slurred speech Stage 4 chronic kidney disease URI (upper respiratory infection) Procedure/Surgical History Fistula: 03/30/23 Cholecystectomy: 03/30/22 Echocardiogram: 01/22/22 Cardiovascular stress testin01/10/22 Fistula: 2021 Cardiac catheterization: 05/27/21 Cardiovascular stress testin04/19/21 Echocardiogram: 01/21/21 Doppler ultrasound of bilateral carotid arteries: 08/21/20 Appendectomy Stent Medications Inpatient acetaminophen, 650 mg= 2 tab(s), Oral, q6hr, PRN aspirin 81 mg oral tablet, chewable, 81 mg= 1 tab(s), Oral, qDay atorvastatin, 40 mg= 1 tab(s), Oral, qDay Coreg, 12.5 mg= 1 tab(s), Oral, BIDM Dextrose 50% IV Push, 25 gram(s)= 50 mL, IV Push, AsDirected, PRN Dulcolax Laxative, 10 mg= 2 tab(s), Oral, qDay, PRN DuoNeb, 3 mL, Inhalation, q4hRT, PRN heparin 5000 units/mL injection, 5000 unit(s)= 1 mL, Subcutaneous, q8h HumaLOG 100 units/mL subcutaneous solution, Give 0-5 units/dose, Subcutaneous, TIDAC Lantus, 10 unit(s)= 0.1 mL, Subcutaneous (INT), qHS Maalox, 30 mL, Oral, q2h, PRN melatonin, 3 mg= 1 tab(s), Oral, qHS, PRN Rocephin, 2 gram(s)= 20 mL, IV Push (INT), qDay Senokot S, 1 tab(s), Oral, BID, PRN Tylenol, 650 mg= 2 tab(s), Oral, q4h, PRN Tylenol, 650 mg= 1 supp, Rectal, q4h, PRN Zithromax IV Home acetaminophen 325 mg oral tablet, 650 mg= 2 tab(s), Oral, q6h, PRN allopurinol 100 mg oral tablet, 100 mg= 1 tab(s), Oral, qDay, 3 refills amLODIPine 10 mg oral tablet, 10 mg= 1 tab(s), Oral, qDay, 3 refills aspirin 81 mg oral delayed release tablet, 81 mg= 1 tab(s), Oral, qDay atorvastatin 80 mg oral tablet, 80 mg= 1 tab(s), Oral, qDay, 3 refills Blood Glucose Test Machine, See Instructions Blood Glucose Test Strips, See Instructions, 6 refills Blood Pressure Cuff, See Instructions calcium acetate 667 mg oral capsule, 1334 mg= 2 cap(s), Oral, TID Coreg 12.5 mg oral tablet, 12.5 mg= 1 tab(s), Oral, BID, 3 refills DME MISCellaneous, See Instructions DME MISCellaneous, See Instructions DME MISCellaneous, See Instructions DME MISCellaneous, See Instructions, 11 refills doxycycline hyclate 100 mg oral capsule, 100 mg= 1 cap(s), PO, BID, Not taking: No longer taking atfacility FreeStyle Navid 3 [place], See Instructions FreeStyle Navid 3+ Sensors, See Instructions, 6 refills gabapentin 100 mg oral capsule, 100 mg= 1 cap(s), Oral, BID, 5 refills hydrALAZINE 100 mg oral tablet, 100 mg= 1 tab(s), Oral, TID, 3 refills Lancets, See Instructions, 6 refills lidocaine-prilocaine 2.5%-2.5% topical cream, 1 toby, Topical, Once melatonin 5 mg oral tablet, 5 mg= 1 tab(s), Oral, qHS, PRN, Not taking: No longer taking at facility Nephro-Todd oral tablet, 1 tab(s), Oral, qDay, Not taking: No longer taking at facility NovoLOG FlexPen 100 units/mL injectable solution, 5 unit(s), Subcutaneous, BIDAC nystatin 100,000 units/g topical powder, 1 toby, Topical, BID, Not taking: No longer taking at facility ondansetron 4 mg oral tablet, disintegrating, 4 mg= 1 tab(s), Oral, q6h, PRN ONETOUCH DELICA PLUS LANCETS EXTRA FINE 33G MISC Pen needles, See Instructions, 11 refills Pen needles 5 mm, See Instructions, 11 refills Alok Caps, 1 cap(s), Oral, qDay rOPINIRole 0.25 mg oral tablet, 0.25 mg= 1 tab(s), Oral, BID Tessalon Perles 100 mg oral capsule, 100 mg= 1 cap(s), Oral, q8h, PRN, Not taking: No longer takingat facility torsemide 100 mg oral tablet, 50 mg= 0.5 tab(s), Oral, BID, 5 refills Jey Barry SoloStar 300 units/mL subcutaneous solution, 20 unit(s), Subcutaneous, qDay, 11 refills Tums E-X 750 mg oral tablet, chewable, 750 mg= 1 tab(s), Chewed, BID venlafaxine 112.5 mg oral tablet, extended release, 112.5 mg= 1 tab(s), Oral, qDay, 3 refills, Not taking: No longer taking at facility Vitamin D3 50 mcg (2000 intl units) oral capsule, 50 mcg= 1 tab(s), Oral, Daily, 11 refills, Not taking: No longer taking at facility Zetia 10 mg oral tablet, 10 mg= 1 tab(s), Oral, qDay, 3 refills Allergies NKA Social History Alcohol Use: Never., 08/09/2018 Home/Environment Living situation: Home with assistance. Domestic Concerns: None. 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 Aneurysm: Maternal Uncle. Diabetes: Mother, Sister and Brother. Heart disease: Mother, Father, Sister and Brother. Hypertension: Mother, Father, Sister and Brother. Health Status Family Member(s) Immunizations pneumococcal 23-valent vaccine(Pneumovax: 0.5 unknown unit (04/22/17) SARS-CoV-2 mRNA (tozinameran) vaccine: 30 mcg (04/11/21) SARS-CoV-2 mRNA (tozinameran) vaccine: 30 mcg (03/21/21) tetanus/diphtheria/pertussMUL.ORD![id number]: 0.5 unknown unit (03/04/17) Digitally Signed by ANALIA CERVANTES MD on 11/09/2024 11:11 AM [id number] Note* Exam Date Time Procedure Performing Provider Status 11/09/24 10:44 AM XR Chest 1 View GELACIO HE MD; Auth (Verified) [id number] ORIGINAL EXAMINATION: ONE XRAY VIEW OF THE CHEST11/09/2024 10:45 am COMPARISON: 11/08/2024 HISTORY: ORDERING SYSTEM PROVIDED HISTORY: Reason for Exam: SOB FINDINGS: Enlarged cardiac silhouette and atherosclerosis noted. Peripheral airspace consolidations seen in the central and lower right lung. No pneumothorax visible. No large pleural effusions seen. Bony detail is suboptimal. No aggressive bony lesions. IMPRESSION: Peripheral airspace disease in the right lung is slightly improved. Follow to resolution Interpreted by: Gelacio He MD Preliminary Report By: Gelacio He MD Electronically signed By Gelacio He MD Dictated Date: 11/09/2024 10:53:17 AM Prelim Date: 11/09/2024 10:54:19 AM Sign Date: 11/09/2024 10:54:19 AM Ordering Provider: [id number] Note* Exam Date Time Procedure Performing Provider Status 11/09/24 10:12 AM Echocardiogram, Adult - CV GEMMA CROW MD; Auth (Verified) [id number] Note* Exam Date Time Procedure Performing Provider Status 11/08/24 10:[address] Head or Brain w/o Contrast NAWAF BALL MD; Auth (Verified) [id number] ORIGINAL EXAMINATION: CT OF THE HEAD WITHOUT CONTRAST 11/08/2024 10:57 pm TECHNIQUE: CT of the head was performed without the administration of intravenous contrast. Automated exposure control, iterative reconstruction, and/or weight based adjustment of the mA/kV was utilized to reduce the radiation dose to as low as reasonably achievable. COMPARISON: CT head July 08, 2022 HISTORY: ORDERING SYSTEM PROVIDED HISTORY: Reason for Exam: AMS, HX OF STROKE, PT POOR HISTORIAN Delirium FINDINGS: BRAIN/VENTRICLES: There is no acute intracranial hemorrhage, mass effect or midline shift. No abnormal extra-axial fluid collection. Redemonstrated left-sided encephalomalacia. There is no evidence of hydrocephalus. There are nonspecific hypoattenuating foci in the subcortical and periventricular white matter that most likely represent chronic microangiopathic ischemic changes in a patient of this age. ORBITS: The visualized portion of the orbits demonstrate no acute abnormality. SINUSES: The visualized paranasal sinuses and mastoid air cells demonstrate no acute abnormality. SOFT TISSUES/SKULL: No acute abnormality of the visualized skull. IMPRESSION: No acute intracranial abnormality. Interpreted by: Nawaf Chou Preliminary Report By: Nawaf Chou Electronically signed By Nawaf Chou Dictated Date: 11/08/2024 11:26:04 PM Prelim Date: 11/08/2024 11:29:37 PM Sign Date: 11/08/2024 11:29:37 PM Ordering Provider: RADHA HUMPHREYS [id number] History and physical note Date of Service November 08, 2024 Chief Complaint chest pain and sob started today. middle of chest rating it an 8 History of Present Illness A 58 years old female with past medical history significant for ESRD on hemodialysis, chronic hypoxic respiratory failure on 4 L of oxygen via nasal cannula at home, type 2 diabetes mellitus on insulin, HFpEF, class III obesity, diabetic neuropathy, general anxiety disorder, coronary artery disease, hypertension, dyslipidemia [facility] with a chief concern for chest pressure, nausea/vomiting, cough and shortness of breath. She is initially presented to [facility] ED earlier this morning with complaints of cough, nausea, vomiting and chest pressure. Chest x-ray showed finding of congestion/edema versus developing infectious or inflammatory process. White count was 14,000 with 88% neutrophils. BUN/creatinine was 62/7.17,potassium was elevated at 5.6. Troponins were not elevated. COVID/flu/RSV PCR was negative. Patientreceived doses of morphine and Zofran along with oral Lokelma for hyperkalemia however patient refused Lokelma. Patient was felt stable for discharge for dialysis early tomorrow morning and she was prescribed Zithromax, Zofran and Tessalon Perles. Patient went home and presented to [facility] ER with persistent shortness of breath, cough and nausea/vomiting. Vital signs, labs, imaging personally reviewed She was saturating well on her home 4 L of oxygen by nasal: Patient also appeared to be encephalopathic on my evaluation, she was oriented to place and person but not to time. CBC showed white count of 12,400 with left shift, hemoglobin of 10.7. CMP showed BUN/creatinine of 63/7.59, potassium of 5.7. proBNP of 14,000, troponin trended upward from 46-1 69. Chest x-ray done at [facility] showed airspace opacities most pronounced in the right lateral lung favoring pneumonia. EKG showed sinus rhythm with left bundle branch block with QTc of 451 ms I did discuss and confirm CODE STATUS with the patient who had questionable decision-making capacity, patient wished to be full code, I did try to call and talk to family via phone numbers listed in [facility] chart however unable to reach them so we will keep her full code for now. ED physician order hyperkalemia cocktail, ED physician also talk to on-call nephrology who did not think that patient needs urgent dialysis, they will dialyze patient first thing tomorrow. Review of Systems Review of systems are negative except as mentioned in HPI Physical Exam Vitals and Measurements T: 36.7 C (Oral) HR: 75 (Monitored) RR: 18 BP: 158/73 SpO2: 96% No qualifying data available. General Appearance: Patient encephalopathic and drowsy arousable on verbal and tactile stimulation,follow commands Head: Atraumatic and normocephalic EENT: EOMI, PERRLA, no oropharyngeal erythema, no tonsillar exudates, no conjunctival injection. sclera anicteric. Neck: No thyromegaly, no cervical lymphadenopathy, trachea midline Cardiac: S1 and S2 normal. RRR. No murmurs, rubs, or gallops. No JVD. No hepatojugular reflex. Lungs: Good air entry bilaterally. No increased work for breathing. No wheezes, rhonchi, or rales. Abdomen: Soft, nontender, nondistended. Normoactive bowel sounds. No rebound or guarding. Negative Arriaga's sign. No hepatosplenomegaly. Musculoskeletal: Full range of motion upper and lower extremities. No CVA tenderness. Extremities: No lower extremity pitting edema. 2+ radial and pedal pulses bilaterally. Neurological: No gross motor deficits Skin: No abrasions, scars, or hematomas on visible skin. No cyanosis. No purulent discharge. Psychiatric: Encephalopathic arousable on verbal and tactile summation, follow commands, oriented to place and person but not to time. Lab Results 11/08 16:33 WBC: 12.4 H Hgb: 10.7 L Hct: 32.3 L Platelet: 178 Neutrophil %: 86.6 H Glucose Level: 261 H Sodium Level: 139 Potassium Level: 5.7 H BUN: 63.0 H Creatinine Lvl (s): 7.59 H WBC: 12.4 10^3/mcL High (11/08/24 16:33:00) RBC: 3.35 10^6/mcL Low (11/08/24 16:33:00) Hgb: 10.7 G/dL Low (11/08/24 16:33:00) Hct: 32.3 % Low (11/08/24 16:33:00) MCV: 96.4 fL (11/08/24 16:33:00) MCH: 31.8 pg (11/08/24 16:33:00) MCHC: 33 G/dL (11/08/24 16:33:00) RDW: 18.1 % High (11/08/24 16:33:00) Platelet: 178 10^3/mcL (11/08/24 16:33:00) MPV: 10.7 fL High (11/08/24 16:33:00) Monocyte Distribution Width: 21.3 High (11/08/24 16:33:00) Neutrophil %: 86.6 % High (11/08/24 16:33:00) Lymphocyte %: 3.1 % Low (11/08/24 16:33:00) Monocyte %: 8.8 % (11/08/24 16:33:00) Eosinophil %: 1.1 % (11/08/24 16:33:00) Basophil %: 0.4 % (11/08/24 16:33:00) Neutrophil, Absolute: 10.7 10^3/mcL High (11/08/24 16:33:00) Lymphocyte, Absolute: 0.4 10^3/mcL Low (11/08/24 16:33:00) Monocyte, Absolute: 1.1 10^3/mcL (11/08/24 16:33:00) Eosinophil, Absolute: 0.1 10^3/mcL (11/08/24 16:33:00) Basophil, Absolute: 0 10^3/mcL (11/08/24 16:33:00) Platelet Estimate: Adequate (11/08/24 06:07:00) Large Platelets: Few1 (11/08/24 06:07:00) Anisocytosis: 1+ (11/08/24 06:07:00) Hypochrom: 1+ (11/08/24 06:07:00) Stomatocytes: 1+ (11/08/24 06:07:00) Toxic Gran: 1+ (11/08/24 06:07:00) Glucose Level: 261 mg/dL High (11/08/24 16:33:00) Sodium Level: 139 mEq/L (11/08/24 16:33:00) Potassium Level: 5.7 mEq/L High (11/08/24 16:33:00) Chloride: 98 mEq/L (11/08/24 16:33:00) CO2: 28 mEq/L (11/08/24 16:33:00) Electrolyte Balance: 13 mEq/L (11/08/24 16:33:00) BUN: 63 mg/dL High (11/08/24 16:33:00) Creatinine Lvl (s): 7.59 mg/dL High (11/08/24 16:33:00) Estimated Glomerular Filtration Rate: 6 ml/min/1.73sqm (11/08/24 16:33:00) BUN/Creatinine Ratio: 8.3 ratio Low (11/08/24 16:33:00) Calcium Lvl: 8.5 mg/dL Low (11/08/24 16:33:00) Total Protein: 6.9 G/dL (11/08/24 16:33:00) Albumin Level: 3.5 G/dL (11/08/24 16:33:00) Globulin: 3.4 G/dL (11/08/24 16:33:00) A/G Ratio: 1 ratio (11/08/24 16:33:00) Bili Total: 0.7 mg/dL (11/08/24 16:33:00) Alk Phos: 82 U/L (11/08/24 16:33:00) AST/SGOT: 28 U/L (11/08/24 16:33:00) ALT/SGPT: 18 U/L (11/08/24 16:33:00) Lipase Level: 27 U/L (11/08/24 16:33:00) Lactic Acid Lvl: 1.8 mmol/L (11/08/24 16:33:00) N-Terminal proBNP: 11542 pg/mL High (11/08/24 16:33:00) High Sensitivity Troponin I: 169 ng/L High (11/08/24 19:09:00) U Creatinine: 222.9 mg/dL (10/26/24 16:30:00) U Microalb: >850.0 (10/26/24 16:30:00) U Ratio Alb/Cre: Unable to Calculate (10/26/24 16:30:00) SARS-CoV-2 PCR: Cepheid Neg (11/08/24 05:44:00) FLU A PCR: Cepheid Neg (11/08/24 05:44:00) FLU B PCR: Cepheid Neg (11/08/24 05:44:00) RSV PCR: Cepheid Neg (11/08/24 05:44:00) Blood Glucose, Capillary: 228 mg/dL High (11/08/24 19:13:00) Blood Glucose Testing Reason: Routine (11/08/24 19:13:00) Imaging Results and Diagnostics XR Chest 1 View Result Date: November 08, 2024 Verified By: TONY MANUEL MD CLINICAL STATEMENT: IMPRESSION: Airspace opacities most pronounced in the right lateral lung. Asymmetricappearance favors pneumonia and/or aspiration over edema. Small effusions not excluded. EKG EC11/08/24: SINUS RHYTHM PROLONGED FL INTERVAL LEFT BUNDLE BRANCH BLOCK Electronic Signature: DORIAN JAUREGUI MD 11/08/2024 16:58:54 Assessment/Plan Patient is admitted to stepdown monitored bed, patient is expected to require at least 2 midnight hospitalization including care already provided in the ED for hyperkalemia requiring dialysis in the morning and hyperkalemia cocktail, delirium requiring CT head and ABG, pneumonia requiring IV antibiotics and elevated troponins requiring echocardiogram and cardiology consultation. Complications could include worsening hyperkalemia leading to cardiac arrest as well as sepsis due to pneumonia if she is left untreated. Case discussed with ED physician Assessment: Delirium Hyperkalemia Community-acquired pneumonia Elevated troponins ESRD on hemodialysis Chronic hypoxic respiratory failure Type 2 diabetes mellitus HFpEF Diabetic neuropathy Coronary artery disease Hypertension Dyslipidemia Plan: CT head ordered for delirium ABG ordered which is pending Could be secondary to infection Potassium of 5.7 on admission, we ordered insulin plus dextrose, oral Lokelma and IV sodium bicarb.Repeat CMP ordered in the morning Chest x-ray showed evidence of pneumonia, IV Rocephin and azithromycin ordered, blood cultures ordered, COVID/flu/RSV PCR negative on admission. Streptococcus pneumonia urine antigen/Legionella urineantigen/mycoplasma antibody ordered Troponin is mildly elevated trending upward from 40s to 160s Continue home medication of aspirin and statin once med rec is done Echocardiogram ordered Cardiology has been consulted Trend troponins Nephrology consulted for dialysis Continue oxygen via nasal cannula for chronic hypoxic respiratory failure, on 4 L at home Diabetic diet, insulin Humalog sliding scale ordered for type 2 diabetes mellitus, cut down insulinLantus from 20 units to 10 units as patient is encephalopathic Continue other essential home meds once med rec is done DVT prophylaxis: SCDs Heparin subcu Medication reconciliation was not done at the time of this dictation as medication history was not completed and home medications were not verified by pharmacy. Note was written using [employer] medical billing and coding instructor software. Some of the meaning of the words and sentences might have changed during medical billing and coding instructor, if there was ever some confusion about the meaning of some sentences, please do not hesitate to contact me. Problem List/Past Medical History Ongoing (HFpEF) heart failure with preserved ejection fraction Anemia Anxiety Back pain Breast cancer screening CAD (coronary artery disease) Chronic constipation Chronic headaches Chronic respiratory failure Class 3 obesity Congestive heart failure Diabetic neuropathy Diabetic retinopathy DM type 2 with diabetic mixed hyperlipidemia 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 to type 2 diabetes mellitus Episode of shaking ESRD on dialysis Generalized anxiety disorder Hammertoe of right foot Hearing loss History of stroke Hyperlipidemia Hypertension Hypoxia Iron deficiency anemia Jaundice Low back pain Major depressive disorder Mass of left lower leg Medicare annual wellness visit, subsequent Mental status alteration On anticoagulant therapy On home oxygen therapy Pneumonia Postmenopausal Screening for breast cancer Screening for colon cancer Spasm of left trapezius muscle Systolic murmur Type 2 diabetes mellitus Vitamin D deficiency Historical Acute hypoxemic respiratory failure due to COVID-19 Anxiety Anxiety and depression AV fistula thrombosis CKD stage 3 secondary to diabetes COVID-19 Depression Depression Diabetes type 2, uncontrolled ESRD on hemodialysis Eustachian tube dysfunction Fall Forehead abrasion Hypokalemia Left shoulder pain Mental status change resolved Pneumonia due to COVID-19 virus Postmenopausal vaginal bleeding Psychosis Respiratory insufficiency Slurred speech Stage 4 chronic kidney disease URI (upper respiratory infection) Procedure/Surgical History Fistula: 01/01/24 Cholecystectomy: 03/30/22 Echocardiogram: 01/22/22 Cardiovascular stress testin01/10/22 Fistula: 2021 Cardiac catheterization: 05/27/21 Cardiovascular stress testin04/19/21 Echocardiogram: 01/21/21 Doppler ultrasound of bilateral carotid arteries: 08/21/20 Appendectomy Stent Medications Home Medications (34) Active acetaminophen 325 mg oral tablet 650 mg = 2 tab(s), PRN, Oral, q6h allopurinol 100 mg oral tablet 100 mg = 1 tab(s), Oral, qDay amLODIPine 10 mg oral tablet 10 mg = 1 tab(s), Oral, qDay aspirin 81 mg oral delayed release tablet 81 mg = 1 tab(s), Oral, qDay atorvastatin 80 mg oral tablet 80 mg = 1 tab(s), Oral, qDay Blood Glucose Test Machine See Instructions Blood Glucose Test Strips See Instructions Blood Pressure Cuff See Instructions Coreg 12.5 mg oral tablet 12.5 mg = 1 tab(s), Oral, BID DME MISCellaneous See Instructions DME MISCellaneous See Instructions DME MISCellaneous See Instructions DME MISCellaneous See Instructions doxycycline hyclate 100 mg oral capsule 100 mg = 1 cap(s), PO, BID FreeStyle Navid 3 [place] See Instructions FreeStyle Navid 3+ Sensors See Instructions gabapentin 100 mg oral capsule 100 mg = 1 cap(s), Oral, BID hydrALAZINE 100 mg oral tablet 100 mg = 1 tab(s), Oral, TID Lancets See Instructions melatonin 5 mg oral tablet 5 mg = 1 tab(s), PRN, Oral, qHS Nephro-Todd oral tablet 1 tab(s), Oral, qDay NovoLOG FlexPen 100 units/mL injectable solution 5 unit(s), Subcutaneous, BIDAC nystatin 100,000 units/g topical powder 1 toby, Topical, BID ondansetron 4 mg oral tablet, disintegrating 4 mg = 1 tab(s), PRN, Oral, q6h ONETOUCH DELICA PLUS LANCETS EXTRA FINE 33G MISC Pen needles See Instructions Pen needles 5 mm See Instructions Potter Caps 1 cap(s), Oral, qDay Tessalon Perles 100 mg oral capsule 100 mg = 1 cap(s), PRN, Oral, q8h torsemide 100 mg oral tablet 50 mg = 0.5 tab(s), Oral, BID Toujeo Max SoloStar 300 units/mL subcutaneous solution 20 unit(s), Subcutaneous, qDay venlafaxine 112.5 mg oral tablet, extended release 112.5 mg = 1 tab(s), Oral, qDay Vitamin D3 50 mcg (2000 intl units) oral capsule 50 mcg = 1 tab(s), Oral, Daily Zetia 10 mg oral tablet 10 mg = 1 tab(s), Oral, qDay Allergies NKA Social History Alcohol Use: Never., 08/09/2018 Home/Environment Living situation: Home with assistance. Domestic Concerns: None. 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 Aneurysm: Maternal Uncle. Diabetes: Mother, Sister and Brother. Heart disease: Mother, Father, Sister and Brother. Hypertension: Mother, Father, Sister and Brother. Health Status Family Member(s) Immunizations pneumococcal 23-valent vaccine(Pneumovax: 0.5 unknown unit (04/22/17) SARS-CoV-2 mRNA (tozinameran) vaccine: 30 mcg (04/11/21) SARS-CoV-2 mRNA (tozinameran) vaccine: 30 mcg (03/21/21) tetanus/diphtheria/pertussMUL.ORD![id number]: 0.5 unknown unit (03/04/17) Code Status Code Status - Ordered -- 11/08/24 20:46:00 EDT, Full Code, Constant Order I did discuss and confirm CODE STATUS with the patient, unclear whether patient had decision-makingcapacity as she was encephalopathic however I did try to reach out to family over the phone but wasunable to contact them. Will keep the patient full code for now. Digitally Signed by RADHA HUMPHREYS MD on 11/08/2024 08:58 PM [id number] History and physical note Date of Service November 08, 2024 Chief Complaint chest pain and sob started today. middle of chest rating it an 8 History of Present Illness A 58 years old female with past medical history significant for ESRD on hemodialysis, chronic hypoxic respiratory failure on 4 L of oxygen via nasal cannula at home, type 2 diabetes mellitus on insulin, HFpEF, class III obesity, diabetic neuropathy, general anxiety disorder, coronary artery disease, hypertension, dyslipidemia presented [facility] with a chief concern for chest pressure, nausea/vomiting, cough and shortness of breath. She is initially presented to [facility] ED earlier this morning with complaints of cough, nausea, vomiting and chest pressure. Chest x-ray showed finding of congestion/edema versus developing infectious or inflammatory process. White count was 14,000 with 88% neutrophils. BUN/creatinine was 62/7.17,potassium was elevated at 5.6. Troponins were not elevated. COVID/flu/RSV PCR was negative. Patientreceived doses of morphine and Zofran along with oral Lokelma for hyperkalemia however patient refused Lokelma. Patient was felt stable for discharge for dialysis early tomorrow morning and she was prescribed Zithromax, Zofran and Tessalon Perles. Patient went home and presented to [facility] ER with persistent shortness of breath, cough and nausea/vomiting. Vital signs, labs, imaging personally reviewed She was saturating well on her home 4 L of oxygen by nasal: Patient also appeared to be encephalopathic on my evaluation, she was oriented to place and person but not to time. CBC showed white count of 12,400 with left shift, hemoglobin of 10.7. CMP showed BUN/creatinine of 63/7.59, potassium of 5.7. proBNP of 14,000, troponin trended upward from 46-1 69. Chest x-ray done at [facility] showed airspace opacities most pronounced in the right lateral lung favoring pneumonia. EKG showed sinus rhythm with left bundle branch block with QTc of 451 ms I did discuss and confirm CODE STATUS with the patient who had questionable decision-making capacity, patient wished to be full code, I did try to call and talk to family via phone numbers listed in [facility] chart however unable to reach them so we will keep her full code for now. ED physician order hyperkalemia cocktail, ED physician also talk to on-call nephrology who did not think that patient needs urgent dialysis, they will dialyze patient first thing tomorrow. Review of Systems Review of systems are negative except as mentioned in HPI Physical Exam Vitals and Measurements T: 36.7 C (Oral) HR: 75 (Monitored) RR: 18 BP: 158/73 SpO2: 96% No qualifying data available. General Appearance: Patient encephalopathic and drowsy arousable on verbal and tactile stimulation,follow commands Head: Atraumatic and normocephalic EENT: EOMI, PERRLA, no oropharyngeal erythema, no tonsillar exudates, no conjunctival injection. sclera anicteric. Neck: No thyromegaly, no cervical lymphadenopathy, trachea midline Cardiac: S1 and S2 normal. RRR. No murmurs, rubs, or gallops. No JVD. No hepatojugular reflex. Lungs: Good air entry bilaterally. No increased work for breathing. No wheezes, rhonchi, or rales. Abdomen: Soft, nontender, nondistended. Normoactive bowel sounds. No rebound or guarding. Negative Arriaga's sign. No hepatosplenomegaly. Musculoskeletal: Full range of motion upper and lower extremities. No CVA tenderness. Extremities: No lower extremity pitting edema. 2+ radial and pedal pulses bilaterally. Neurological: No gross motor deficits Skin: No abrasions, scars, or hematomas on visible skin. No cyanosis. No purulent discharge. Psychiatric: Encephalopathic arousable on verbal and tactile summation, follow commands, oriented to place and person but not to time. Lab Results 11/08 16:33 WBC: 12.4 H Hgb: 10.7 L Hct: 32.3 L Platelet: 178 Neutrophil %: 86.6 H Glucose Level: 261 H Sodium Level: 139 Potassium Level: 5.7 H BUN: 63.0 H Creatinine Lvl (s): 7.59 H WBC: 12.4 10^3/mcL High (11/08/24 16:33:00) RBC: 3.35 10^6/mcL Low (11/08/24 16:33:00) Hgb: 10.7 G/dL Low (11/08/24 16:33:00) Hct: 32.3 % Low (11/08/24 16:33:00) MCV: 96.4 fL (11/08/24 16:33:00) MCH: 31.8 pg (11/08/24 16:33:00) MCHC: 33 G/dL (11/08/24 16:33:00) RDW: 18.1 % High (11/08/24 16:33:00) Platelet: 178 10^3/mcL (11/08/24 16:33:00) MPV: 10.7 fL High (11/08/24 16:33:00) Monocyte Distribution Width: 21.3 High (11/08/24 16:33:00) Neutrophil %: 86.6 % High (11/08/24 16:33:00) Lymphocyte %: 3.1 % Low (11/08/24 16:33:00) Monocyte %: 8.8 % (11/08/24 16:33:00) Eosinophil %: 1.1 % (11/08/24 16:33:00) Basophil %: 0.4 % (11/08/24 16:33:00) Neutrophil, Absolute: 10.7 10^3/mcL High (11/08/24 16:33:00) Lymphocyte, Absolute: 0.4 10^3/mcL Low (11/08/24 16:33:00) Monocyte, Absolute: 1.1 10^3/mcL (11/08/24 16:33:00) Eosinophil, Absolute: 0.1 10^3/mcL (11/08/24 16:33:00) Basophil, Absolute: 0 10^3/mcL (11/08/24 16:33:00) Platelet Estimate: Adequate (11/08/24 06:07:00) Large Platelets: Few1 (11/08/24 06:07:00) Anisocytosis: 1+ (11/08/24 06:07:00) Hypochrom: 1+ (11/08/24 06:07:00) Stomatocytes: 1+ (11/08/24 06:07:00) Toxic Gran: 1+ (11/08/24 06:07:00) Glucose Level: 261 mg/dL High (11/08/24 16:33:00) Sodium Level: 139 mEq/L (11/08/24 16:33:00) Potassium Level: 5.7 mEq/L High (11/08/24 16:33:00) Chloride: 98 mEq/L (11/08/24 16:33:00) CO2: 28 mEq/L (11/08/24 16:33:00) Electrolyte Balance: 13 mEq/L (11/08/24 16:33:00) BUN: 63 mg/dL High (11/08/24 16:33:00) Creatinine Lvl (s): 7.59 mg/dL High (11/08/24 16:33:00) Estimated Glomerular Filtration Rate: 6 ml/min/1.73sqm (11/08/24 16:33:00) BUN/Creatinine Ratio: 8.3 ratio Low (11/08/24 16:33:00) Calcium Lvl: 8.5 mg/dL Low (11/08/24 16:33:00) Total Protein: 6.9 G/dL (11/08/24 16:33:00) Albumin Level: 3.5 G/dL (11/08/24 16:33:00) Globulin: 3.4 G/dL (11/08/24 16:33:00) A/G Ratio: 1 ratio (11/08/24 16:33:00) Bili Total: 0.7 mg/dL (11/08/24 16:33:00) Alk Phos: 82 U/L (11/08/24 16:33:00) AST/SGOT: 28 U/L (11/08/24 16:33:00) ALT/SGPT: 18 U/L (11/08/24 16:33:00) Lipase Level: 27 U/L (11/08/24 16:33:00) Lactic Acid Lvl: 1.8 mmol/L (11/08/24 16:33:00) N-Terminal proBNP: 40859 pg/mL High (11/08/24 16:33:00) High Sensitivity Troponin I: 169 ng/L High (11/08/24 19:09:00) U Creatinine: 222.9 mg/dL (10/26/24 16:30:00) U Microalb: >850.0 (10/26/24 16:30:00) U Ratio Alb/Cre: Unable to Calculate (10/26/24 16:30:00) SARS-CoV-2 PCR: Cepheid Neg (11/08/24 05:44:00) FLU A PCR: Cepheid Neg (11/08/24 05:44:00) FLU B PCR: Cepheid Neg (11/08/24 05:44:00) RSV PCR: Cepheid Neg (11/08/24 05:44:00) Blood Glucose, Capillary: 228 mg/dL High (11/08/24 19:13:00) Blood Glucose Testing Reason: Routine (11/08/24 19:13:00) Imaging Results and Diagnostics XR Chest 1 View Result Date: November 08, 2024 Verified By: TONY MANUEL MD CLINICAL STATEMENT: IMPRESSION: Airspace opacities most pronounced in the right lateral lung. Asymmetricappearance favors pneumonia and/or aspiration over edema. Small effusions not excluded. EKG EC11/08/24: SINUS RHYTHM PROLONGED FL INTERVAL LEFT BUNDLE BRANCH BLOCK Electronic Signature: DORIAN JAUREGUI MD 11/08/2024 16:58:54 Assessment/Plan Patient is admitted to stepdown monitored bed, patient is expected to require at least 2 midnight hospitalization including care already provided in the ED for hyperkalemia requiring dialysis in the morning and hyperkalemia cocktail, delirium requiring CT head and ABG, pneumonia requiring IV antibiotics and elevated troponins requiring echocardiogram and cardiology consultation. Complications could include worsening hyperkalemia leading to cardiac arrest as well as sepsis due to pneumonia if she is left untreated. Case discussed with ED physician Assessment: Delirium Hyperkalemia Community-acquired pneumonia Elevated troponins ESRD on hemodialysis Chronic hypoxic respiratory failure Type 2 diabetes mellitus HFpEF Diabetic neuropathy Coronary artery disease Hypertension Dyslipidemia Plan: CT head ordered for delirium ABG ordered which is pending Could be secondary to infection Potassium of 5.7 on admission, we ordered insulin plus dextrose, oral Lokelma and IV sodium bicarb.Repeat CMP ordered in the morning Chest x-ray showed evidence of pneumonia, IV Rocephin and azithromycin ordered, blood cultures ordered, COVID/flu/RSV PCR negative on admission. Streptococcus pneumonia urine antigen/Legionella urineantigen/mycoplasma antibody ordered Troponin is mildly elevated trending upward from 40s to 160s Continue home medication of aspirin and statin once med rec is done Echocardiogram ordered Cardiology has been consulted Trend troponins Nephrology consulted for dialysis Continue oxygen via nasal cannula for chronic hypoxic respiratory failure, on 4 L at home Diabetic diet, insulin Humalog sliding scale ordered for type 2 diabetes mellitus, cut down insulinLantus from 20 units to 10 units as patient is encephalopathic Continue other essential home meds once med rec is done DVT prophylaxis: SCDs Heparin subcu Medication reconciliation was not done at the time of this dictation as medication history was not completed and home medications were not verified by pharmacy. Note was written using [employer] medical billing and coding instructor software. Some of the meaning of the words and sentences might have changed during medical billing and coding instructor, if there was ever some confusion about the meaning of some sentences, please do not hesitate to contact me. Problem List/Past Medical History Ongoing (HFpEF) heart failure with preserved ejection fraction Anemia Anxiety Back pain Breast cancer screening CAD (coronary artery disease) Chronic constipation Chronic headaches Chronic respiratory failure Class 3 obesity Congestive heart failure Diabetic neuropathy Diabetic retinopathy DM type 2 with diabetic mixed hyperlipidemia 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 to type 2 diabetes mellitus Episode of shaking ESRD on dialysis Generalized anxiety disorder Hammertoe of right foot Hearing loss History of stroke Hyperlipidemia Hypertension Hypoxia Iron deficiency anemia Jaundice Low back pain Major depressive disorder Mass of left lower leg Medicare annual wellness visit, subsequent Mental status alteration On anticoagulant therapy On home oxygen therapy Pneumonia Postmenopausal Screening for breast cancer Screening for colon cancer Spasm of left trapezius muscle Systolic murmur Type 2 diabetes mellitus Vitamin D deficiency Historical Acute hypoxemic respiratory failure due to COVID-19 Anxiety Anxiety and depression AV fistula thrombosis CKD stage 3 secondary to diabetes COVID-19 Depression Depression Diabetes type 2, uncontrolled ESRD on hemodialysis Eustachian tube dysfunction Fall Forehead abrasion Hypokalemia Left shoulder pain Mental status change resolved Pneumonia due to COVID-19 virus Postmenopausal vaginal bleeding Psychosis Respiratory insufficiency Slurred speech Stage 4 chronic kidney disease URI (upper respiratory infection) Procedure/Surgical History Fistula: 03/30/23 Cholecystectomy: 03/30/22 Echocardiogram: 01/22/22 Cardiovascular stress testin01/10/22 Fistula: 2021 Cardiac catheterization: 05/27/21 Cardiovascular stress testin04/19/21 Echocardiogram: 01/21/21 Doppler ultrasound of bilateral carotid arteries: 08/21/20 Appendectomy Stent Medications Home Medications (34) Active acetaminophen 325 mg oral tablet 650 mg = 2 tab(s), PRN, Oral, q6h allopurinol 100 mg oral tablet 100 mg = 1 tab(s), Oral, qDay amLODIPine 10 mg oral tablet 10 mg = 1 tab(s), Oral, qDay aspirin 81 mg oral delayed release tablet 81 mg = 1 tab(s), Oral, qDay atorvastatin 80 mg oral tablet 80 mg = 1 tab(s), Oral, qDay Blood Glucose Test Machine See Instructions Blood Glucose Test Strips See Instructions Blood Pressure Cuff See Instructions Coreg 12.5 mg oral tablet 12.5 mg = 1 tab(s), Oral, BID DME MISCellaneous See Instructions DME MISCellaneous See Instructions DME MISCellaneous See Instructions DME MISCellaneous See Instructions doxycycline hyclate 100 mg oral capsule 100 mg = 1 cap(s), PO, BID FreeStyle Navid 3 [place] See Instructions FreeStyle Navid 3+ Sensors See Instructions gabapentin 100 mg oral capsule 100 mg = 1 cap(s), Oral, BID hydrALAZINE 100 mg oral tablet 100 mg = 1 tab(s), Oral, TID Lancets See Instructions melatonin 5 mg oral tablet 5 mg = 1 tab(s), PRN, Oral, qHS Nephro-Todd oral tablet 1 tab(s), Oral, qDay NovoLOG FlexPen 100 units/mL injectable solution 5 unit(s), Subcutaneous, BIDAC nystatin 100,000 units/g topical powder 1 toby, Topical, BID ondansetron 4 mg oral tablet, disintegrating 4 mg = 1 tab(s), PRN, Oral, q6h ONETOUCH DELICA PLUS LANCETS EXTRA FINE 33G MISC Pen needles See Instructions Pen needles 5 mm See Instructions Potter Caps 1 cap(s), Oral, qDay Tessalon Perles 100 mg oral capsule 100 mg = 1 cap(s), PRN, Oral, q8h torsemide 100 mg oral tablet 50 mg = 0.5 tab(s), Oral, BID Toujeo Max SoloStar 300 units/mL subcutaneous solution 20 unit(s), Subcutaneous, qDay venlafaxine 112.5 mg oral tablet, extended release 112.5 mg = 1 tab(s), Oral, qDay Vitamin D3 50 mcg (2000 intl units) oral capsule 50 mcg = 1 tab(s), Oral, Daily Zetia 10 mg oral tablet 10 mg = 1 tab(s), Oral, qDay Allergies NKA Social History Alcohol Use: Never., 08/09/2018 Home/Environment Living situation: Home with assistance. Domestic Concerns: None. 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 Aneurysm: Maternal Uncle. Diabetes: Mother, Sister and Brother. Heart disease: Mother, Father, Sister and Brother. Hypertension: Mother, Father, Sister and Brother. Health Status Family Member(s) Immunizations pneumococcal 23-valent vaccine(Pneumovax: 0.5 unknown unit (04/22/17) SARS-CoV-2 mRNA (tozinameran) vaccine: 30 mcg (04/11/21) SARS-CoV-2 mRNA (tozinameran) vaccine: 30 mcg (03/21/21) tetanus/diphtheria/pertussMUL.ORD![id number]: 0.5 unknown unit (03/04/17) Code Status Code Status - Ordered -- 11/08/24 20:46:00 EDT, Full Code, Constant Order I did discuss and confirm CODE STATUS with the patient, unclear whether patient had decision-makingcapacity as she was encephalopathic however I did try to reach out to family over the phone but wasunable to contact them. Will keep the patient full code for now. Digitally Signed by RADHA HUMPHREYS MD on 11/08/2024 08:58 PM [id number] Note* Exam Date Time Procedure Performing Provider Status 11/08/24 5:38 PM XR Chest 1 View TONY MANUEL MD; Aut h (Verified) [id number] ORIGINAL EXAMINATION: ONE XRAY VIEW OF THE CHEST 11/08/2024 5:38 pm COMPARISON: 11/08/2024 at 6:22 a.m. HISTORY: ORDERING SYSTEM PROVIDED HISTORY: Reason for Exam: shortness of breath, cough, vomiting FINDINGS: The cardiomediastinal silhouette appears unchanged. Airspace opacities more pronounced in the right lateral lung elsewhere. Small effusions not excluded. There is no evidence of pneumothorax. No fracture is identified. IMPRESSION: Airspace opacities most pronounced in the right lateral lung. Asymmetric appearance favors pneumonia and/or aspiration over edema. Small effusions not excluded. Interpreted by: Tony Manuel Preliminary Report By: Tony Manuel Electronically signed By Tony Manuel Dictated Date: 11/08/2024 5:57:58 PM Prelim Date: 11/08/2024 6:01:23 PM Sign Date: 11/08/2024 6:01:23 PM Ordering Provider: DORIAN JAUREGUI [id number] Note* Exam Date Time Procedure Performing Provider Status 11/08/24 4:37 PM EKG (ED) - CV DORIAN JAUREGUI MD; Auth (Verified) ECG Final Report SINUS RHYTHM PROLONGED FL INTERVAL LEFT BUNDLE BRANCH BLOCK Electronic Signature: DORIAN JAUREGUI MD 11/08/2024 16:58:54 [facility] [id number] Evaluation + Plan noteExtracted from: Title:History and Physical Author:RADHA HUMPHREYS MD Date:11/08/24 Patient is admitted to stepd own monitored bed, patient is expected to require at least 2 midnight hospitalization including care already provided in the ED for hyperkalemia requiring dialysis in the morning and hyperkalemia cocktail, delirium requiring CT head and ABG, pneumonia requiring IV antibiotics and elevated troponins requiring echocardiogram and cardiology consultation. Complications could include worsening hyperkalemia leading to cardiac arrest as well as sepsis due to pneumonia if she is left untreated. Case discussed with ED physician Assessment: Delirium Hyperkalemia Community-acquired pneumonia Elevated troponins ESRD on hemodialysis Chronic hypoxic respiratory failure Type 2 diabetes mellitus HFpEF Diabetic neuropathy Coronary artery disease Hypertension Dyslipidemia Plan: CT head ordered for delirium ABG ordered which is pending Could be secondary to infection Potassium of 5.7 on admission, we ordered insulin plus dextrose, oral Lokelma and IV sodium bicarb. Repeat CMP ordered in the morning Chest x-ray showed evidence of pneumonia, IV Rocephin and azithromycin ordered, blood cultures ordered, COVID/flu/RSV PCR negative on admission. Streptococcus pneumonia urine antigen/Legionella urine antigen/mycoplasma antibody ordered Troponin is mildly elevated trending upward from 40s to 160s Continue home medication of aspirin and statin once med rec is done Echocardiogram ordered Cardiology has been consulted Trend troponins Nephrology consulted for dialysis Continue oxygen via nasal cannula for chronic hypoxic respiratory failure, on 4 L at home Diabetic diet, insulin Humalog sliding scale ordered for type 2 diabetes mellitus, cut down insulin Lantus from 20 units to 10 units as patient is encephalopathic Continue other essential home meds once med rec is done DVT prophylaxis: SCDs Heparin subcu Medication reconciliation was not done at the time of this dictation as medication history was not completed and home medications were not verified by pharmacy. Note was written using [employer] medical billing and coding instructor software. Some of the meaning of the words and sentences might have changed during medical billing and coding instructor, if there was ever some confusion about the meaning of some sentences, please do not hesitate to contact me. Addendum by RADHA HUMPHREYS MD on November 08, 2024 21:51:48 EDT ABG on admission did not show respiratory acidosis, mild hypercapnia in light is likely chronic with pCO2 of 46.8 and [address] of 7[address]38. CT head is pending we will follow-up on that. Future Appointments Appointment Date:11/16/2024 04:15:00 PM Scheduled Provider: Location:[facility] Appointment Type:MEDS - Diabetic Individual Visit Appointment Date:11/22/2024 04:00:00 PM Scheduled Provider:DENISSE SUTTON Location:[facility] Appointment Type:PC OV Future Scheduled Tests Laboratory* Lipid Profile 04/13/24 * Complete Metabolic Panel 04/13/24 [facility] 08-12-2025 Note Discharge Instructions Thank you for allowing [facility] to assist you with your healthcare needs. The following is importantdischarge information regarding your hospital visit. Diagnosis from Today's Visit Chest pain What to Do Next Instructions from Your Care Team No qualifying data available. Post Acute Orders No qualifying data available. You Need to Schedule the Following Appointments Follow Up with DENISSE SUTTON When:Within 2-4 days Where:[address] [facility] [place] [address] [phone] Allergies NKA Medications Please ask your primary doctor or pharmacist before taking any other medication not listed, including over the counter drugs, herbal medications, vitamins and or supplements as they may interact withyour home medications. What How Much When Why Instructions Last Dose New benzonatate (Tessalon Perles 100 mg oral capsule) 1 cap by mouth Every 8 hours as needed for as needed for cough Printed Prescription New doxycycline (doxycycline hyclate 100 mg oral capsule) 1 cap by mouth Two (2) times a day Duration: 10 Days Printed Prescription New ondansetron (ondansetron 4 mg oral tablet, disintegrating) 1 tab(s) by mouth Every 6 hours as needed for Nausea/Vomiting Printed Prescription Unchanged acetaminophen (acetaminophen 325 mg oral tablet) 2 tab(s) by mouth Every 6 hours as needed for as needed for pain Unchanged allopurinol (allopurinol 100 mg oral tablet) [...] DME (Blood Glucose Test Machine) See instructions True Metrix Glucometer. Use glucometer daily as directed for blood sugar checks. Dispense insurancepreferred device Unchanged DME (Blood Glucose Test Strips) See instructions True Metrix Test Strips Use one test strip to check blood sugar once daily as directed. Dispense insurance preferred test strips. 1 box of 100 Unchanged DME (Blood Pressure Cuff) See instructions [...] #1 box of 100 strips Unchanged DME (FreeStyle Navid 3 [place]) See instructions Use reader to scan sensor once with every new sensor. Keep reader within 33 feet of the sensor and transmitter for daily blood sugar checks Unchanged DME (FreeStyle Navid 3+ Sensors) See instructions Place once sensor to the back of the upper arm every 15 days. Use reader or phone toby for daily blood sugar checks. 1 month supply Unchanged DME (Lancets) See instructions True Metrix Lancets. Use one lancet to ponce finger for blood sugar testing once daily as directed. Dispense insurance preferred lancets Unchanged DME (Pen needles 5 mm) See instructions qs for 1 month supply Unchanged DME (Pen needles) See instructions qs for 1 month supply. 31 G x 8 mm " use as diecte Unchanged ezetimibe (Zetia 10 [...] (NovoLOG FlexPen 100 units/ mL injectable solution) 5 unit(s) Subcutaneous Two (2) times daily [...] by mouth Once a day Unchanged multivitamin (Potter Caps) 1 cap by mouth Once a day Unchanged nystatin topical (nystatin 100,000 units/ g topical powder) 1 application Topical Two (2) times a day Unchanged torsemide (torsemide 100 mg oral tablet) 0.5 tab(s) by mouth Two (2) times a day Unchanged venlafaxine (venlafaxine 112.5 mg oral tablet, extended release) 1 tab(s) by mouth Once a day with food Please take this list to your next [...] due to different causes. These include gastroenteritis ("stomach flu"), food poisoning and gastritis. There are other [...] and water are not available, use alcohol-based plow and boring machine tender to keep from spreading the infection to [...] Yellow color of the eyes or skin 5976-8811 The [employer]. [address] [place] [address]. All rights reserved. This information is not intended as a substitute for professional medical care. Always follow yourhealthcare professional's instructions. Acute Bronchitis Your healthcare provider has told you that you have acute bronchitis. Bronchitis is infection or inflammation of the bronchial tubes (airways in the lungs). Normally, air moves easily in and out of the airways. Bronchitis narrows the airways, making it harder for air to flow in and out of the lungs. This causes symptoms such as shortness of breath, coughing up yellow or green mucus, and wheezing.Bronchitis can be acute or chronic. Acute means the condition comes on quickly and goes away in a short time, usually within 3 to 10 days. Chronic means a condition lasts a long time and often comes back. What causes acute bronchitis? Acute bronchitis almost always starts as a viral respiratory infection, such as a cold or the flu. Certain factors make it more likely for a cold or flu to turn into bronchitis. These include being very young, being elderly, having a heart or lung problem, or having a weak immune system. Cigarette smoking also makes bronchitis more likely. When bronchitis develops, the airways become swollen. The airways may also become infected with bacteria. This is known as a secondary infection. Diagnosing acute bronchitis Your healthcare provider will examine you and ask about your symptoms and health history. You may also have a sputum culture to test the fluid in your lungs. Chest X-rays may be done to look for infection in the lungs. Treating acute bronchitis Bronchitis usually clears up as the cold or flu goes away. You can help feel better faster by doingthe following: Take medicine as directed. You may be told to take ibuprofen or other qdfe-tac-bghhsql medicines. These help relieve inflammation in your bronchial tubes. Your healthcare provider may prescribe an inhaler to help open up the bronchial tubes. Most of the time, acute bronchitis is caused by a viral in fection. Antibiotics are usually not prescribed for viral infections. Drink plenty of fluids, such as water, juice, or warm soup. Fluids loosen mucus so that you can cough it up. This helps you breathe more easily. Fluids also prevent dehydration. Make sure you get plenty of rest. Do not smoke. Do not allow anyone else to smoke in your home. Recovery and follow-up Follow up with your doctor as you are told. You will likely feel better in a week or two. But a drycough can linger beyond that time. Let your doctor know if you still have symptoms (other than a dry cough) after 2 weeks, or if you re prone to getting bronchial infections. Take steps to protect yourself from future infections. These steps include stopping smoking and avoiding tobacco smoke, washing your hands often, and getting a yearly flu shot. When to call your healthcare provider Call the healthcare provider if you have any of the following: Fever of 100.4 F (38.0 C) or higher, or as advised Symptoms that get worse, or new symptoms Trouble breathing Symptoms that don t start to improve within a week, or within 3 days of taking antibiotics [id number] The [employer]. [address] [place] [address]. All rights reserved. This information is not intended as a substitute for professional medical care. Always follow yourhealthcare professional's instructions. Noncardiac Chest Pain Based on your visit today, the healthcare provider doesn t know what is causing your chest pain. Inmost cases, people who come to the emergency department with chest pain don t have a problem with their heart. Instead, the pain is caused by other conditions. It's important for the healthcare team to be sure you are not having a life threatening cause for chest pain such as a heart attack, blood c lot in the lungs, collapsed lung, ruptured esophagus, or tearing of the aorta. Once these major causes have been ruled out, you may have further evaluation for non-heart causes of chest pain. These may be problems with the lungs, muscles, bones, digestive tract, nerves, or mental health. Lung problems Inflammation around the lungs (pleurisy) Collapsed lung (pneumothorax) Fluid around the lungs (pleural effusion) Lung cancer (a rare cause of chest pain) Muscle or bone problems Inflamed cartilage between the ribs (costochondritis) Fibromyalgia Rheumatoid arthritis Chest wall strain Digestive system problems Reflux Stomach ulcer Spasms of the esophagus Gall stones Gallbladder inflammation Mental health conditions Panic or anxiety attacks Emotional distress Your condition doesn t seem serious and your pain doesn t appear to be coming from your heart. But sometimes the signs of a serious problem take more time to appear. Watch for the warning signs listed below. Home care Follow these guidelines when caring for yourself at home: Rest today and avoid strenuous activity. Take any prescribed medicine as directed. Follow-up care Follow up with your healthcare provider, or as advised, if you don t start to feel better within 24hours. When to seek medical advice Call your healthcare provider right away if any of these occur: A change in the type of pain. Call if it feels different, becomes more serious, lasts longer, or begins to spread into your shoulder, arm, neck, jaw, or back. Shortness of breath You feel more pain when you breathe Cough with dark-colored mucus or blood Weakness, dizziness, or fainting Fever of 100.4 F (38 C) or higher, or as directed by your healthcare provider Swelling, pain, or redness in one leg [id number] The [employer]. [address] [place], [place] [id number]. All rights reserved. This information is not intended as a substitute for professional medical care. Always follow yourhealthcare professional's instructions. Additional Information VACCINATE! IT SAVES LIVES! Members of the community who have not yet received the COVID-19 vaccine and would like to receive it can visit one of [facility] vaccine clinics. There are many vaccine clinic locations within the [facility]. For locations and available times, please visit www.gettheshot.coronavirus.[place].gov/. It is important to note that some COVID mobile vaccine clinics are held outdoors and may be canceled in rainy or stormy conditions. To learn more about pediatric vaccinations (ages 5-11), we invite you to visit the [facility] webpage. https://www.[facility].org/pages/1659-Cyrzl-Vzmwsrsubbp-Qezbjhybec-Zbfnp-Sig stions.htmlTo learn more about the COVID-19 vaccine, we invite you to visit the CDC website for a list of frequently asked questions. https://www.cdc.gov/coronavirus/2019-ncov/vaccines/faq.html [facility] Patient Portal Access Instructions: Stay connected with your healthcare team and access your personal medical information anytime with the [facility] Patient Portal. If you would like a full copy of your medical records please contact the [facility] Medical Records Department Thursday through Thursday between 8a.m. and 4:30p.m. Please follow the directions below to access the portal: 1.Access the email account you provided upon registration to the [facility].2.Look for an invitation email from [facility].3.Open the email and access the invitation link: Accept Invitation to [facility].Fill in the required gilmore to create your account. Sign into www.[email or web address] with your username and password that you [...] you will allow to register on the [facility] Patient Portal for access to your information. You can also access the [facility] Patient Portal on the [employer]. Simply click on "Health Records" under "HealthData" and then click on the [facility] logo. HOW TO SAFELY DISPOSE OF PRESCRIPTION [...] Call your local pharmacy or go to http://onefinestay.C2cube/1E2Aw8j to find one close to you.3.Make use of household items: Use cat litter or old coffee grounds to dispose medications if other options arenot available. Mix your drugs with these household products, seal them in an airtight container andthrow it into the garbage. Call [facility]: [phone] to be sure your drugs can be [...] COPY Signatures Patient Education Materials Vomiting (Adult) Acute Bronchitis Chest Pain, Noncardiac Medication Leaflets My discharge plan and instructions have been reviewed and explained to me and I,ZAYDA DAVIS understand my current condition and have read and understand these discharge instructions. I have received a written copy of the plan/instructions. If I have questions, I am aware that I should contactmy doctor. 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 These include gastroenteritis ("stomach flu"), food poisoning and gastritis. There are other [...] and water are not available, use alcohol-based plow and boring machine tender to keep from spreading the infection to [...] Yellow color of the eyes or skin 6210-0957 The [employer]. [address] [place] [address], [place] [address]. All rights reserved. This information is not intended as a substitute for professional medical care. Always follow yourhealthcare professional's instructions. 11/08/2024 06:49:30 Acute Bronchitis Acute Bronchitis Your healthcare provider has told you that you have acute bronchitis. Bronchitis is infection or inflammation of the bronchial tubes (airways in the lungs). Normally, air moves easily in and out of the airways. Bronchitis narrows the airways, making it harder for air to flow in and out of the lungs. This causes symptoms such as shortness of breath, coughing up yellow or green mucus, and wheezing.Bronchitis can be acute or chronic. Acute means the condition comes on quickly and goes away in a short time, usually within 3 to 10 days. Chronic means a condition lasts a long time and often comes back. What causes acute bronchitis? Acute bronchitis almost always starts as a viral respiratory infection, such as a cold or the flu. Certain factors make it more likely for a cold or flu to turn into bronchitis. These include being very young, being elderly, having a heart or lung problem, or having a weak immune system. Cigarette smoking also makes bronchitis more likely. When bronchitis develops, the airways become swollen. The airways may also become infected with bacteria. This is known as a secondary infection. Diagnosing acute bronchitis Your healthcare provider will examine you and ask about your symptoms and health history. You may also have a sputum culture to test the fluid in your lungs. Chest X-rays may be done to look for infection in the lungs. Treating acute bronchitis Bronchitis usually clears up as the cold or flu goes away. You can help feel better faster by doingthe following: Take medicine as directed. You may be told to take ibuprofen or other ozgu-ruu-zmpnkic medicines. These help relieve inflammation in your bronchial tubes. Your healthcare provider may prescribe an inhaler to help open up the bronchial tubes. Most of the time, acute bronchitis is caused by a viral in fection. Antibiotics are usually not prescribed for viral infections. Drink plenty of fluids, such as water, juice, or warm soup. Fluids loosen mucus so that you can cough it up. This helps you breathe more easily. Fluids also prevent dehydration. Make sure you get plenty of rest. Do not smoke. Do not allow anyone else to smoke in your home. Recovery and follow-up Follow up with your doctor as you are told. You will likely feel better in a week or two. But a drycough can linger beyond that time. Let your doctor know if you still have symptoms (other than a dry cough) after 2 weeks, or if you re prone to getting bronchial infections. Take steps to protect yourself from future infections. These steps include stopping smoking and avoiding tobacco smoke, washing your hands often, and getting a yearly flu shot. When to call your healthcare provider Call the healthcare provider if you have any of the following: Fever of 100.4 F (38.0 C) or higher, or as advised Symptoms that get worse, or new symptoms Trouble breathing Symptoms that don t start to improve within a week, or within 3 days of taking antibiotics [id number] The [employer]. [address] [place] [address]. All rights reserved. This information is not intended as a substitute for professional medical care. Always follow yourhealthcare professional's instructions. 11/08/2024 06:49:18 Chest Pain, Noncardiac Noncardiac Chest Pain Based on your visit today, the healthcare provider doesn t know what is causing your chest pain. Inmost cases, people who come to the emergency department with chest pain don t have a problem with their heart. Instead, the pain is caused by other conditions. It's important for the healthcare team to be sure you are not having a life threatening cause for chest pain such as a heart attack, blood c lot in the lungs, collapsed lung, ruptured esophagus, or tearing of the aorta. Once these major causes have been ruled out, you may have further evaluation for non-heart causes of chest pain. These may be problems with the lungs, muscles, bones, digestive tract, nerves, or mental health. Lung problems Inflammation around the lungs (pleurisy) Collapsed lung (pneumothorax) Fluid around the lungs (pleural effusion) Lung cancer (a rare cause of chest pain) Muscle or bone problems Inflamed cartilage between the ribs (costochondritis) Fibromyalgia Rheumatoid arthritis Chest wall strain Digestive system problems Reflux Stomach ulcer Spasms of the esophagus Gall stones Gallbladder inflammation Mental health conditions Panic or anxiety attacks Emotional distress Your condition doesn t seem serious and your pain doesn t appear to be coming from your heart. But sometimes the signs of a serious problem take more time to appear. Watch for the warning signs listed below. Home care Follow these guidelines when caring for yourself at home: Rest today and avoid strenuous activity. Take any prescribed medicine as directed. Follow-up care Follow up with your healthcare provider, or as advised, if you don t start to feel better within 24hours. When to seek medical advice Call your healthcare provider right away if any of these occur: A change in the type of pain. Call if it feels different, becomes more serious, lasts longer, or begins to spread into your shoulder, arm, neck, jaw, or back. Shortness of breath You feel more pain when you breathe Cough with dark-colored mucus or blood Weakness, dizziness, or fainting Fever of 100.4 F (38 C) or higher, or as directed by your healthcare provider Swelling, pain, or redness in one leg [id number] The [employer]. [address] [place] [address]. All rights reserved. This information is not intended as a substitute for professional medical care. Always follow yourhealthcare professional's instructions. Follow Up Care 11/08/2024 05:13:13 With:DENISSE SUTTON APRN-[facility] Address: [address] [facility] [address] [facility] [place] [address] [phone] When:2-4 days [facility] 08-12-2025 Note* Exam Date Time Procedure Performing Provider Status 11/08/24 6:45 AM XR Chest 2 Views DIAMOND DELA CRUZ MD; [facility] (Verified) [id number] ORIGINAL EXAMINATION: TWO XRAY VIEWS OF THE CHEST 11/08/2024 6:45 am COMPARISON: None. HISTORY: ORDERING SYSTEM PROVIDED HISTORY: Reason for Exam: SOB/Cough/Fever FINDINGS: Moderate cardiomegaly. Atherosclerotic calcification of the aorta is noted. Interstitial and alveolar haziness throughout the lungs bilaterally greater on the right. Suspected small right effusion. IMPRESSION: Findings suggestive of congestion/edema versus developing infectious or inflammatory process. Worsened airspace disease on the right with possible small right effusion. Interpreted by: Diamond Dela Cruz MD Preliminary Report By: Diamond Dela Cruz MD Electronically signed By Diamond Dela Cruz MD Dictated Date: 11/08/2024 6:50:52 AM Prelim Date: 11/08/2024 6:51:33 AM Sign Date: 11/08/2024 6:51:33 AM Ordering Provider: SRIDEVI KELLEY [facility]08-12-2025 Note* Exam Date Time Procedure Performing Provider Status 11/08/24 5:16 AM EKG [ED AO] - CV SRIDEVI KELLEY MD; Auth (Verified) ECG Final Report Sinus rhythm Ventricular premature complex Prolonged FL interval Left bundle branch block Electronic Signature: SRIDEVI KELLEY MD 11/08/2024 06:46:13 [facility]07-15-2025 Discharge summary Author Cipriano Baldwin [facility] Note Date/Time October 11, 2024 11:5 9am [facility] Medical Records Department [address] [place] [address] Discharge Summary 10/11/24 1153 MR#: [id number] Acct: [id number] Name: ZAYDA DAVIS Rep #:[id number] : 1965 58 From: Cipriano Baldwin DO PCP: TERESA Mas Status:ADM I N Location: [place] [address] Providers Date of Admission: 10/10/24 Primary Care Physician: TERESA Mas Consultations 10/10/24 11:42 Consult: Nephrology Routine Consulting Provider: Ketty Granger Reason for Consult: dialysis for 10/11 EMERGENT Consult: No MD Notified: Yes Date Notified: 10/10/24 Time Notified: 12:59 Method of Notification: office Reason For Visit: PNEUMONIA Diagnosis Discharge Diagnosis (1) Pneumonia: Status: Acute Code(s): J18.9 - Pneumonia, unspecified organism Plan: Suspect pneumococcal Patient received azithromycin and ceftriaxone emergency room. Will continue on the floor. Check urinary antigens for strep and Legionella. Sputum culture so far negative. Pulmonary toilet. Though despite the patient not having a fever nor leukocytosis, her post POCUS and physical exam not consistent with volume overload at this time. Therefore the patient feel has pneumonia. Patient not looking well today. Was felt initially to be an observation stay looks like this will be extending beyond 24 hours so we will change to inpatientstatus to admission. Will consult nephrology for dialysis as well. Check home patient requires 2 L with rest and 4 L with activity. Will dischargeand patient to complete course of antibiotics with Augmentin. Plan Chronic conditions * End-stage renal disease: On hemodialysis every Thursday, and Thursday. Consult nephrology for dialysis which is to be performed the .. Patient had dialysis today and tolerated it well. * Diabetes mellitus type 2: Continue with prandial as well as basal insulin. Add sliding scale insulin. * Glaucoma: Continue latanoprost * Obesity class III: Complicates care and recovery. VTE prophylaxis with subcu heparin CODE STATUS: Addressed with the patient. Patient wishes to be full code Medications at Discharge Home Medications aspirin 81 mg chewable tablet 81 mg PO DAILY@0800 HEART HEALTH 07/15/18 atorvastatin 80 mg tablet 80 mg PO QHS CHOLESTEROL 08/04/18 torsemide 100 mg tablet 50 mg PO BID diuretic 04/14/19 melatonin 5 mg tablet 5 mg PO HS PRN Sleep 08/03/20 carvedilol 12.5 mg tablet 6.25 mg PO BID blood pressure 09/20/20 acetaminophen 325 mg tablet (Tylenol) 650 mg (2 x 325 mg) PO Q6H PRN PRN Pain 1- 10 Or Fever #0 tabs 10/03/20 amlodipine 10 mg tablet 10 mg PO DAILY blood pressure 01/20/21 insulin glargine U-300 conc 300 unit/mL (1.5 mL) subcutaneous pen (Toujeo SoloStar U-300 Insulin) 20 unit subcut BREAKFAST diabetes 03/21/21 gabapentin 300 mg capsule 300 mg PO TID PRN NEUROPATHY 12/10/22 allopurinol 100 mg tablet 100 mg PO DAILY 01/13/23 cholecalciferol (vitamin D3) 50 mcg (2,000 unit) capsule 50 mcg PO DAILY 01/13/23 ezetimibe 10 mg tablet 10 mg PO QHS 01/13/23 vitamin B complex-vitamin C-folic acid 0.8 mg tablet (Nephro-Todd) 1 tab PO DAILY 01/13/23 nystatin 100,000 unit/gram topical powder (Nyamyc) 1 applic topical BID 14 days #1 BOTTLE 11/21/23 hydralazine 100 mg tablet 100 mg PO TID 30 days #0 tabs 12/17/23 insulin lispro 100 unit/mL subcutaneous pen (Humalog KwikPen (U-100) Insulin) See Protocol subcut ACHS #0 mL 12/17/23 blood sugar diagnostic (OneTouch Verio test strips) 07/31/24 blood-glucose meter (OneTouch Verio Flex Meter) 07/31/24 lancets 33 gauge (OneTouch Delica Plus Lancet) 07/31/24 latanoprost 0.005 % eye drops 1 drp ophthalmic (eye) QHS 07/31/24 ondansetron 4 mg disintegrating tablet 4 mg PO Q6H PRN PRN nausea and vomiting 07/31/24 venlafaxine besylate 112.5 mg tablet,extended release 24 hr 112.5 mg PO DAILY 07/31/24 gabapentin 100 mg capsule 100 mg PO TID 10/09/24 ropinirole 0.25 mg tablet 0.25 mg PO BID 10/09/24 guaifenesin 1,200 mg tablet, extended release 12 hr (Mucus Relief ER) 1,200 mg PO BID #0 tabs 10/11/24 Hospital Course Operations None Procedures Dialysis Summary of Care Provided Hospital Course: Greater than 30-minute spent on discharge This is a 50-year-old female that presented with shortness of breath. Did bedside POCUS exam because the findings were more consistent with CHF but patient did not have any evidence of volume overload clinically such as lower extremity edema but also using POCUS she did not have a dilated IVC and actuallycollapse with inspiration. So her symptoms were felt to be more infectious particular bacterial pneumonia patient was started on antibiotics. Patient has required oxygen did have ambulatory pulse ox where she would require oxygen 2 L with rest and 4 L with activity. Patient be discharged to complete her antibiotics with Augmentin. While she was here, she was day where she had dialysis and did have hemodialysis today. Patient is overall well and be discharged home in stable condition. Weight / BMI Weight Weight: 109.9 kg Body Mass Index (BMI) 45.7 ABG / Lab / Microbiology Data 10/11/24 05:57 10/11/24 05:57 Laboratory: Laboratory Results - last 24 hr 10/10/24 16:14: POC Glucose 158 H 10/10/24 22:42: POC Glucose 140 H 10/11/24 05:57: WBC 11.6 H, RBC 3.36 L, Hgb 10.6 L, Hct 32.3 L, MCV 96.1, MCH 31.5, MCHC 32.8, RDW Std Deviation 58.4 H, RDW Coeff of Chichi 16.5 H, Plt Count 153, MPV 12.3 H, Immature Gran % (Auto) 0.500, Neut % (Auto) 84.9 H, Lymph % (Auto) 3.6 L, [facility] % (Auto) 7.1, Eos % (Auto) 3.6, Baso % (Auto) 0.3, Absolute Neuts (auto) 9.8 H, Absolute Lymphs (auto) 0.42 L, Nucleated RBC % 0, Sodium 133, Potassium 5.5 H, Chloride 93 L, Carbon Dioxide 22.8, Anion Gap 17 H, BUN 60H, Creatinine 7.37 H, Estim Creat Clear Calc 9.54 L*, Est GFR (MDRD) Non-Af 6 L,BUN/Creatinine Ratio 8.1 L, Glucose 117 H, Calcium 8.6 10/11/24 05:58: POC Glucose 122 H Microbiology: Microbiology 10/09/24 14:53 Sputum, Expectorated/Coughed Gram Stain - Final 10/09/24 14:53 Sputum, Expectorated/Coughed Respiratory Culture - Final Mixed normal respiratory khoi. No Streptococcus pneumoniae, beta-hemolytic Streptococcus or Staphylococcus aureus isolated. 10/09/24 09:15 Mucosa - Nose SARS-CoV-2, Influenza & RSV (PCR) - Final D/C Instructions Discharge Activity: Return to Normal Activity Weight Bearing Status: Weight bearing as tolerated Call your doctor if you observe: - (Increasing shortness of breath) DC O2, CPAP, BIPAP Needs Home O2 Discharge instructions: Yes Type of respiratory needs?: Oxygen Oxygen frequency: At rest and With Ambulation Oxygen liters per minute during Ambulation: 4 DC home with Oxygen: Yes Home O2 MD Review: I have reviewed the oxygen testing, and the patient qualifies for home oxygen equipment and portability. The patient is mobile in the home and the community. [facility]: every Thursday, , Thursday. Meaningful Use Info Meaningful Use Meaningful Use Diagnoses (Choose all that apply): None applicable Discharge Plan Admission Admit Date/Time: 10/10/24 11:15 Primary Reason for Your Visit: Pneumonia Attending Provider: Cipriano Baldwin Primary Care Provider: Denisse Sutton NP Consulting Providers: Ketty Granger Discharge Orders/Prescriptions Prescriptions: New guaifenesin [Mucus Relief ER] 1,200 mg Tablet Extended Release 12hr 1,200 mg PO BID Qty: 0 0RF Continued torsemide 100 mg tablet 50 mg PO BID Patient Comments: per family, hospital never refilled it. Supposed to be taking it. melatonin 5 mg tablet 5 mg PO HS PRN (Reason: Sleep) gabapentin 300 mg capsule 300 mg PO TID PRN (Reason: NEUROPATHY) aspirin 81 MG tablet,chewable 81 mg PO DAILY@0800 atorvastatin 80 MG tablet 80 mg PO QHS carvedilol 12.5 mg tablet 6.25 mg PO BID acetaminophen [Tylenol] 325 mg Tablet 650 mg PO Q6H PRN PRN (Reason: Pain 1-10 Or Fever) Qty: 0 0RF amlodipine 10 MG tablet 10 mg PO DAILY insulin glargine U-300 conc [Toujeo SoloStar U-300 Insulin] 300 unit/mL (1.5 mL) insulin pen 20 unit SC BREAKFAST allopurinol 100 mg tablet 100 mg PO DAILY cholecalciferol (vitamin D3) 50 mcg (2,000 unit) capsule 50 mcg PO DAILY Nephro-Todd 0.8 mg tablet 1 tab PO DAILY ezetimibe 10 mg tablet 10 mg PO QHS insulin lispro [Humalog KwikPen Insulin] 100 unit/mL Insulin Pen See Protocol subcut ACHS Qty: 0 0RF Protocol: 4. Sliding Scale Insulin High-Med Dosing Condition: 150-199 mg/dl = 2 units Condition: 200-259 mg/dl = 4 units Condition: 260-324 mg/dl = 6 units Condition: 325-374 mg/dl = 8 units Condition: 375-409 mg/dl = 10 units Condition: 410-449 mg/dl = 11 units Condition: Greater than 449 call physician Protocol Text: Suggested for: - Patients on Total Daily Insulin Dose of 56-80 units - Patient who are known to be insulin resistant or septic HIGH MEDIUM DOSING ALGORITHM Patient Comments: 5 units at lunch and dinner hydralazine 100 mg tablet 100 mg PO TID 30 Days Qty: 0 0RF Rx Instructions: Hold for SBP less than 130 mmHg ropinirole 0.25 mg tablet 0.25 mg PO BID gabapentin 100 mg capsule 100 mg PO TID nystatin [Nyamyc] 100,000 unit/gram Powder 1 applic topical BID 14 Days Qty: 1 0RF Protocol: *Topical Application Instructions APPLICATION INSTRUCTIONS: apply to groin, abdominal folds, under breasts Rx Instructions: Gently cleans skin folds w/ water/soap, pat dry, apply topical nystatin powder until complete resolution of fold redness/odor. latanoprost 0.005 % drops 1 drp ophthalmic (eye) QHS (DME) blood-glucose meter [OneTouch Verio Flex meter] Misc MISCELLANEOUS Patient Comments: [NO ORIGINAL SIG] (DME) OneTouch Verio test strips Strip 1 strip MISCELLANEOUS 4X/DAY (DME) lancets [OneTouch Delica Plus Lancet] 33 gauge misc 1 lancet MISCELLANEOUS 4X/DAY ondansetron 4 mg tablet,disintegrating 4 mg PO Q6H PRN PRN (Reason: nausea and vomiting) venlafaxine besylate 112.5 mg tablet extended release 24hr 112.5 mg PO DAILY Referrals / Follow Up: Denisse Sutton NP, [facility] [Primary Care Provider] - Within 2 Weeks Disposition Disposition (needs filled in before D/C Order can be placed): Home, Self Care Charges/Coding Visit Charges Inpatient E&M: 11309 Disch Hosp >30min 10/11/24 1159 <Electronically signed by Cipriano Baldwin DO> Cosigner Signature (if applicable): CC: TERESA Sutton; Dr. Cipriano Baldwin DO~ Signed [facility] Work Phone: [phone] 102-493807-15-2025 Progress note Author Cipriano Baldwin [facility] Note Date/Time October 11, 2024 11:5 3am [facility] Medical Records Department [address] [place] [address] Progress Note - Hospitalist 10/11/24 0734 MR#: [id number] Acct: [id number] Name: ZAYDA DAVIS Rep #:[id number] : 1965 58 From: Cipriano Baldwin DO PCP: BA MasC Status:ADM I N Location: [place] [address] Reason for Visit Chief Complaint: Shortness of breath Subjective Subjective Feeling well. Still coughing. Objective Data Objective Data Vital Signs: Vital Signs Temp Pulse Resp BP Pulse Ox O2 Del Method O2 Flow Rate 37.1 C 73 18 136/59 H 93 Nasal Cannula 2 10/11/24 03:42 10/11/24 07:17 10/11/24 07:17 10/11/24 03:42 10/11/24 07:16 10/11/24 07:16 10/11/24 07:16 Oxygen Flow Rate (L/min) 2 Oxygen Delivery Method Nasal Cannula Weight: 109.9 kg Body Mass Index (BMI) 45.7 Intake & Output: Intake and Output for Last 24 Hours 10/09/24 10/10/24 10/11/24 23:59 23:59 23:59 Intake Total 405 / 505 505.0 / 565.0 60 / 60 Output Total 300 / 300 Balance 405 / 505 505.0 / 565.0 -240 / -240 Lab / Micro Data 10/11/24 05:57 10/11/24 05:57 Labs: Laboratory Results - last 24 hr 10/10/24 05:20: WBC 9.4, RBC 3.18 L, Hgb 10.1 L, Hct 31.4 L, MCV 98.7, MCH 31.8,MCHC 32.2, RDW Std Deviation 58.4 H, RDW Coeff of Chichi 16.2 H, Plt Count 154, MPV13.4 H, Immature Gran % (Auto) 0.400, Neut % (Auto) 76.3 H, Lymph % (Auto) 5.3 L, [facility] % (Auto) 11.9 H, Eos % (Auto) 5.8 H, Baso % (Auto) 0.3, Absolute Neuts (auto) 7.2, Absolute Lymphs (auto) 0.50 L, Platelet Estimate A, Polychromasia 1+ 10/10/24 16:14: POC Glucose 158 H 10/10/24 22:42: POC Glucose 140 H 10/11/24 05:57: WBC 11.6 H, RBC 3.36 L, Hgb 10.6 L, Hct 32.3 L, MCV 96.1, MCH 31.5, MCHC 32.8, RDW Std Deviation 58.4 H, RDW Coeff of [place] 16.5 H, Plt Count 153, MPV 12.3 H, Immature Gran % (Auto) 0.500, Neut % (Auto) 84.9 H, Lymph % (Auto) 3.[address] L, [facility] % (Auto) 7.1, Eos % (Auto) 3.6, Baso % (Auto) 0.3, Absolute Neuts (auto) 9.8 H, Absolute Lymphs (auto) 0.42 L, Nucleated RBC % 0, Sodium 133, Potassium 5.5 H, Chloride 93 L, Carbon Dioxide 22.8, Anion Gap 17 H, BUN 60H, Creatinine 7.37 H, Estim Creat Clear Calc 9.54 L*, Est GFR (MDRD) Non-Af 6 L,BUN/Creatinine Ratio 8.1 L, Glucose 117 H, Calcium 8.6 10/11/24 05:58: POC Glucose 122 H Micro: Microbiology 10/09/24 09:15 Mucosa - Nose SARS-CoV-2, Influenza & RSV (PCR) - Final Physical Exam Const alert and no apparent distress Constitutional Narrative: Seen on dialysis. Patient was dozing off but did not come to was able to answerquestions appropriately. HEENT head/scalp atraumatic and moist oral mucous membranes Resp normal respiratory effort, no retractions, no use of accessory muscles and clearto auscultation bilaterally Cardio regular rate, regular rhythm, S1 normal heart sound and S2 normal heart sound GI normal to inspection, nondistended, normoactive bowel sounds, soft to palpation,non-tender and non-distended Extremity normal to inspection, full ROM and no clubbing, cyanosis or edema Neuro Sensorium / Orientation: awake, alert and oriented to person Assessment & Plan Assessment/Plan (1) Pneumonia: PLAN: Suspect pneumococcal Patient received azithromycin and ceftriaxone emergency room. Will continue on the floor. Check urinary antigens for strep and Legionella. Sputum culture so far negative. Pulmonary toilet. Though despite the patient not having a fever nor leukocytosis, her post POCUS and physical exam not consistent with volume overload at this time. Therefore the patient feel has pneumonia. Patient not looking well today. Was felt initially to be an observation stay looks like this will be extending beyond 24 hours so we will change to inpatientstatus to admission. Will consult nephrology for dialysis as well. Check home patient requires 2 L with rest and 4 L with activity. Will dischargeand patient to complete course of antibiotics with Augmentin. PLAN: Plan Chronic conditions * End-stage renal disease: On hemodialysis every Thursday, and Thursday. Consult nephrology for dialysis which is to be performed the .. Patient had dialysis today and tolerated it well. * Diabetes mellitus type 2: Continue with prandial as well as basal insulin. Add sliding scale insulin. * Glaucoma: Continue latanoprost * Obesity class III: Complicates care and recovery. VTE prophylaxis with subcu heparin CODE STATUS: Addressed with the patient. Patient wishes to be full code 10/11/24 8906 <Electronically signed by Cipriano Baldwin DO> Cosigner Signature (if applicable): CC: ~ Signed [facility] Work Phone: [phone] Discharge summary [facility] Medical Records Department [address] [place] [address] Discharge Summary 10/11/24 1153 MR#: [id number] Acct: [id number] Name: ZAYDA DAVIS Rep #:[id number] : 1965 58 From: Cipriano Baldwin DO PCP: TERESA Mas Status:ADM I N Location: [place] [address] Providers Date of Admission: 10/10/24 Primary Care Physician: TERESA Mas Consultations 10/10/24 11:42 Consult: Nephrology Routine Consulting Provider: Ketty Granger Reason for Consult: dialysis for 10/11 EMERGENT Consult: No MD Notified: Yes Date Notified: 10/10/24 Time Notified: 12:59 Method of Notification: office Reason For Visit: PNEUMONIA Diagnosis Discharge Diagnosis (1) Pneumonia: Status: Acute Code(s): J18.9 - Pneumonia, unspecified organism Plan: Suspect pneumococcal Patient received azithromycin and ceftriaxone emergency room. Will continue on the floor. Check urinary antigens for strep and Legionella. Sputum culture so far negative. Pulmonary toilet. Though despite the patient not having a fever nor leukocytosis, her post POCUS and physical exam not consistent with volume overload at this time. Therefore the patient feel has pneumonia. Patient not looking well today. Was felt initially to be an observation stay looks like this will be extending beyond 24 hours so we will change to inpatientstatus to admission. Will consult nephrology for dialysis as well. Check home patient requires 2 L with rest and 4 L with activity. Will dischargeand patient to complete course of antibiotics with Augmentin. Plan Chronic conditions * End-stage renal disease: On hemodialysis every Thursday, and Thursday. Consult nephrologyfor dialysis which is to be performed the .. Patient had dialysis today and tolerated it well. * Diabetes mellitus type 2: Continue with prandial as well as basal insulin. Add sliding scale insulin. * Glaucoma: Continue latanoprost * Obesity class III: Complicates care and recovery. VTE prophylaxis with subcu heparin CODE STATUS: Addressed with the patient. Patient wishes to be full code Medications at Discharge Home Medications aspirin 81 mg chewable tablet 81 mg PO DAILY@0800 HEART HEALTH 07/15/18 atorvastatin 80 mg tablet 80 mg PO QHS CHOLESTEROL 08/04/18 torsemide 100 mg tablet 50 mg PO BID diuretic 04/14/19 melatonin 5 mg tablet 5 mg PO HS PRN Sleep 08/03/20 carvedilol 12.5 mg tablet 6.25 mg PO BID blood pressure 09/20/20 acetaminophen 325 mg tablet (Tylenol) 650 mg (2 x 325 mg) PO Q6H PRN PRN Pain 1- 10 Or Fever #0 tabs10/03/20 amlodipine 10 mg tablet 10 mg PO DAILY blood pressure 01/20/21 insulin glargine U-300 conc 300 unit/mL (1.5 mL) subcutaneous pen (Toujeo SoloStar U-300 Insulin) 20 unit subcut BREAKFAST diabetes 03/21/21 gabapentin 300 mg capsule 300 mg PO TID PRN NEUROPATHY 12/10/22 allopurinol 100 mg tablet 100 mg PO DAILY 01/13/23 cholecalciferol (vitamin D3) 50 mcg (2,000 unit) capsule 50 mcg PO DAILY 01/13/23 ezetimibe 10 mg tablet 10 mg PO QHS 01/13/23 vitamin B complex-vitamin C-folic acid 0.8 mg tablet (Nephro-Todd) 1 tab PO DAILY 01/13/23 nystatin 100,000 unit/gram topical powder (Nyamyc) 1 applic topical BID 14 days #1 BOTTLE 11/21/23 hydralazine 100 mg tablet 100 mg PO TID 30 days #0 tabs 12/17/23 insulin lispro 100 unit/mL subcutaneous pen (Humalog KwikPen (U-100) Insulin) See Protocol subcut ACHS #0 mL 12/17/23 blood sugar diagnostic (OneTouch Verio test strips) 07/31/24 blood-glucose meter (OneTouch Verio Flex Meter) 07/31/24 lancets 33 gauge (OneTouch Delica Plus Lancet) 07/31/24 latanoprost 0.005 % eye drops 1 drp ophthalmic (eye) QHS 07/31/24 ondansetron 4 mg disintegrating tablet 4 mg PO Q6H PRN PRN nausea and vomiting 07/31/24 venlafaxine besylate 112.5 mg tablet,extended release 24 hr 112.5 mg PO DAILY 07/31/24 gabapentin 100 mg capsule 100 mg PO TID 10/09/24 ropinirole 0.25 mg tablet 0.25 mg PO BID 10/09/24 guaifenesin 1,200 mg tablet, extended release 12 hr (Mucus Relief ER) 1,200 mg PO BID #0 tabs 10/11/24 Hospital Course Operations None Procedures Dialysis Summary of Care Provided Hospital Course: Greater than 30-minute spent on discharge This is a 50-year-old female that presented with shortness of breath. Did bedside POCUS exam because the findings were more consistent with CHF but patient did not have any evidence of volume overload clinically such as lower extremity edema but also using POCUS she did not have a dilated IVC and ac tuallycollapse with inspiration. So her symptoms were felt to be more infectious particular bacterial pneumonia patient was started on antibiotics. Patient has required oxygen did have ambulatory pulse ox where she would require oxygen 2 L with rest and 4 L with activity. Patient be discharged to complete her antibiotics with Augmentin. While she was here, she was day where she had dialysis and did have hemodialysis today. Patient is overall well and be discharged home in stable condition. Weight / BMI Weight Weight: 109.9 kg Body Mass Index (BMI) 45.7 ABG / Lab / Microbiology Data 10/11/24 05:57 10/11/24 05:57 Laboratory: Laboratory Results - last 24 hr 10/10/24 16:14: POC Glucose 158 H 10/10/24 22:42: POC Glucose 140 H 10/11/24 05:57: WBC 11.6 H, RBC 3.36 L, Hgb 10.6 L, Hct 32.3 L, MCV 96.1, MCH 31.5, MCHC 32.8, RDW Std Deviation 58.4 H, RDW Coeff of Chichi 16.5 H, Plt Count 153, MPV 12.3 H, Immature Gran % (Auto) 0.500, Neut % (Auto) 84.9 H, Lymph % (Auto) 3.6 L, [facility] % (Auto) 7.1, Eos % (Auto) 3.6, Baso % (Auto) 0.3, Absolute Neuts (auto) 9.8 H, Absolute Lymphs (auto) 0.42 L, Nucleated RBC % 0, Sodium 133, Potassium 5.5 H, Chloride 93 L, Carbon Dioxide 22.8, Anion Gap 17 H, BUN 60H, Creatinine 7.37 H, Estim Creat Clear Calc 9.54 L*, Est GFR (MDRD) Non-Af 6 L,BUN/Creatinine Ratio 8.1 L, Glucose 117 H, Calcium8.6 10/11/24 05:58: POC Glucose 122 H Microbiology: Microbiology 10/09/24 14:53 Sputum, Expectorated/Coughed Gram Stain - Final 10/09/24 14:53 Sputum, Expectorated/Coughed Respiratory Culture - Final Mixed normal respiratory khoi. No Streptococcus pneumoniae, beta-hemolytic Streptococcus or Staphylococcus aureus isolated. 10/09/24 09:15 Mucosa - Nose SARS-CoV-2, Influenza & RSV (PCR) - Final D/C Instructions Discharge Activity: Return to Normal Activity Weight Bearing Status: Weight bearing as tolerated Call your doctor if you observe: - (Increasing shortness of breath) DC O2, CPAP, BIPAP Needs Home O2 Discharge instructions: Yes Type of respiratory needs?: Oxygen Oxygen frequency: At rest and With Ambulation Oxygen liters per minute during Ambulation: 4 DC home with Oxygen: Yes Home O2 MD Review: I have reviewed the oxygen testing, and the patient qualifies for home oxygen equipment and portability. The patient is mobile in the home and the community. [facility] When: every Thursday, , Thursday. Meaningful Use Info Meaningful Use Meaningful Use Diagnoses (Choose all that apply): None applicable Discharge Plan Admission Admit Date/Time: 10/10/24 11:15 Primary Reason for Your Visit: Pneumonia Attending Provider: Cipriano Baldwin Primary Care Provider: Denisse Sutton NP Consulting Providers: Ketty Granger Discharge Orders/Prescriptions Prescriptions: New guaifenesin [Mucus Relief ER] 1,200 mg Tablet Extended Release 12hr 1,200 mg PO BID Qty: 0 0RF Continued torsemide 100 mg tablet 50 mg PO BID Patient Comments: per family, hospital never refilled it. Supposed to be taking it. melatonin 5 mg tablet 5 mg PO HS PRN (Reason: Sleep) gabapentin 300 mg capsule 300 mg PO TID PRN (Reason: NEUROPATHY) aspirin 81 MG tablet,chewable 81 mg PO DAILY@0800 atorvastatin 80 MG tablet 80 mg PO QHS carvedilol 12.5 mg tablet 6.25 mg PO BID acetaminophen [Tylenol] 325 mg Tablet 650 mg PO Q6H PRN PRN (Reason: Pain 1-10 Or Fever) Qty: 0 0RF amlodipine 10 MG tablet 10 mg PO DAILY insulin glargine U-300 conc [Toujeo SoloStar U-300 Insulin] 300 unit/mL (1.5 mL) insulin pen 20 unit SC BREAKFAST allopurinol 100 mg tablet 100 mg PO DAILY cholecalciferol (vitamin D3) 50 mcg (2,000 unit) capsule 50 mcg PO DAILY Nephro-Todd 0.8 mg tablet 1 tab PO DAILY ezetimibe 10 mg tablet 10 mg PO QHS insulin lispro [Humalog KwikPen Insulin] 100 unit/mL Insulin Pen See Protocol subcut ACHS Qty: 0 0RF Protocol: 4. Sliding Scale Insulin High-Med Dosing Condition: 150-199 mg/dl = 2 units Condition: 200-259 mg/dl = 4 units Condition: 260-324 mg/dl = 6 units Condition: 325-374 mg/dl = 8 units Condition: 375-409 mg/dl = 10 units Condition: 410-449 mg/dl = 11 units Condition: Greater than 449 call physician Protocol Text: Suggested for: - Patients on Total Daily Insulin Dose of 56-80 units - Patient who are known to be insulin resistant or septic HIGH MEDIUM DOSING ALGORITHM Patient Comments: 5 units at lunch and dinner hydralazine 100 mg tablet 100 mg PO TID 30 Days Qty: 0 0RF Rx Instructions: Hold for SBP less than 130 mmHg ropinirole 0.25 mg tablet 0.25 mg PO BID gabapentin 100 mg capsule 100 mg PO TID nystatin [Nyamyc] 100,000 unit/gram Powder 1 applic topical BID 14 Days Qty: 1 0RF Protocol: *Topical Application Instructions APPLICATION INSTRUCTIONS: apply to groin, abdominal folds, under breasts Rx Instructions: Gently cleans skin folds w/ water/soap, pat dry, apply topical nystatin powder until complete resolution of fold redness/odor. latanoprost 0.005 % drops 1 drp ophthalmic (eye) QHS (DME) blood-glucose meter [OneTouch Verio Flex meter] Misc MISCELLANEOUS Patient Comments: [NO ORIGINAL SIG] (DME) OneTouch Verio test strips Strip 1 strip MISCELLANEOUS 4X/DAY (DME) lancets [OneTouch Delica Plus Lancet] 33 gauge misc 1 lancet MISCELLANEOUS 4X/DAY ondansetron 4 mg tablet,disintegrating 4 mg PO Q6H PRN PRN (Reason: nausea and vomiting) venlafaxine besylate 112.5 mg tablet extended release 24hr 112.5 mg PO DAILY Referrals / Follow Up: Denisse Sutton NP, [facility] [employer] [Primary Care Provider] - Within 2 Weeks Disposition Disposition (needs filled in before D/C Order can be placed): Home, Self Care Charges/Coding Visit Charges Inpatient E&M: 13339 Disch Hosp >30min 10/11/24 1159 Cosigner Signature (if applicable): CC: OLGA LIDIA-C Denisse Sutton; Dr. Cipriano Baldwin DO~ Signed [facility]15[facility] Progress note [facility] Medical Records Department [address] [place] [address] Progress Note - Hospitalist 10/11/24 0734 MR#: [id number] Acct: [id number] Name: ZAYDA DAVIS Rep #:[id number] : 1965 58 From: Cipriano Baldwin DO PCP: BA MasC Status:ADM I N Location: [place] [address] Reason for Visit Chief Complaint: Shortness of breath Subjective Subjective Feeling well. Still coughing. Objective Data Objective Data Vital Signs: Vital Signs Temp Pulse Resp BP Pulse Ox O2 Del Method O2 Flow Rate 37.1 C 73 18 136/59 H 93 Nasal Cannula 2 10/11/24 03:42 10/11/24 07:17 10/11/24 07:17 10/11/24 03:42 10/11/24 07:16 10/11/24 07:16 10/11/24 07:16 Oxygen Flow Rate (L/min) 2 Oxygen Delivery Method Nasal Cannula Weight: 109.9 kg Body Mass Index (BMI) 45.7 Intake & Output: Intake and Output for Last 24 Hours 10/09/24 10/10/24 10/11/24 23:59 23:59 23:59 Intake Total 405 / 505 505.0 / 565.0 60 / 60 Output Total 300 / 300 Balance 405 / 505 505.0 / 565.0 -240 / -240 Lab / Micro Data 10/11/24 05:57 10/11/24 05:57 Labs: Laboratory Results - last 24 hr 10/10/24 05:20: WBC 9.4, RBC 3.18 L, Hgb 10.1 L, Hct 31.4 L, MCV 98.7, MCH 31.8,MCHC 32.2, RDW Std Deviation 58.4 H, RDW Coeff of Chichi 16.2 H, Plt Count 154, MPV13.4 H, Immature Gran % (Auto) 0.400, Neut % (Auto) 76.3 H, Lymph % (Auto) 5.3 L, [place] % (Auto) 11.9 H, Eos % (Auto) 5.8 H, Baso % (Auto) 0.3, Absolute Neuts (auto) 7.2, Absolute Lymphs (auto) 0.50 L, Platelet Estimate A, Polychromasia 1+ 10/10/24 16:14: POC Glucose 158 H 10/10/24 22:42: POC Glucose 140 H 10/11/24 05:57: WBC 11.6 H, RBC 3.36 L, Hgb 10.6 L, Hct 32.3 L, MCV 96.1, MCH 31.5, MCHC 32.8, RDW Std Deviation 58.4 H, RDW Coeff of [place] 16.5 H, Plt Count 153, MPV 12.3 H, Immature Gran % (Auto) 0.500, Neut % (Auto) 84.9 H, Lymph % (Auto) 3.[address] L, [facility] % (Auto) 7.1, Eos % (Auto) 3.6, Baso % (Auto) 0.3, Absolute Neuts (auto) 9.8 H, Absolute Lymphs (auto) 0.42 L, Nucleated RBC % 0, Sodium 133, Potassium 5.5 H, Chloride 93 L, Carbon Dioxide 22.8, Anion Gap 17 H, BUN 60H, Creatinine 7.37 H, Estim Creat Clear Calc 9.54 L*, Est GFR (MDRD) Non-Af 6 L,BUN/Creatinine Ratio 8.1 L, Glucose 117 H, Calcium8.6 10/11/24 05:58: POC Glucose 122 H Micro: Microbiology 10/09/24 09:15 Mucosa - Nose SARS-CoV-2, Influenza & RSV (PCR) - Final Physical Exam Const alert and no apparent distress Constitutional Narrative: Seen on dialysis. Patient was dozing off but did not come to was able to answerquestions appropriately. HEENT head/scalp atraumatic and moist oral mucous membranes Resp normal respiratory effort, no retractions, no use of accessory muscles and clearto auscultation bilaterally Cardio regular rate, regular rhythm, S1 normal heart sound and S2 normal heart sound GI normal to inspection, nondistended, normoactive bowel sounds, soft to palpation,non-tender and non-distended Extremity normal to inspection, full ROM and no clubbing, cyanosis or edema Neuro Sensorium / Orientation: awake, alert and oriented to person Assessment & Plan Assessment/Plan (1) Pneumonia: PLAN: Suspect pneumococcal Patient received azithromycin and ceftriaxone emergency room. Will continue on the floor. Check urinary antigens for strep and Legionella. Sputum culture so far negative. Pulmonary toilet. Though despite the patient not having a fever nor leukocytosis, her post POCUS and physical exam not consistent with volume overload at this time. Therefore the patient feel has pneumonia. Patient not looking well today. Was felt initially to be an observation stay looks like this will be extending beyond 24 hours so we will change to inpatientstatus to admission. Will consult nephrology for dialysis as well. Check home patient requires 2 L with rest and 4 L with activity. Will dischargeand patient to complete course of antibiotics with Augmentin. PLAN: Plan Chronic conditions * End-stage renal disease: On hemodialysis every Thursday, and Thursday. Consult nephrologyfor dialysis which is to be performed the .. Patient had dialysis today and tolerated it well. * Diabetes mellitus type 2: Continue with prandial as well as basal insulin. Add sliding scale insulin. * Glaucoma: Continue latanoprost * Obesity class III: Complicates care and recovery. VTE prophylaxis with subcu heparin CODE STATUS: Addressed with the patient. Patient wishes to be full code 10/11/24 5874 Cosigner Signature (if applicable): CC: ~ Signed [facility]07-14-2025 Progress note Author Cipriano Baldwin [facility] Note Date/Time October 10, 2024 11:1 6am [facility] Medical Records Department [address] [place] [address] Progress Note - Hospitalist 10/10/24 0754 MR#: [id number] Acct: [id number] Name: ZAYDA DAVIS Rep #:[id number] : 1965 58 From: Cipriano Baldwin DO PCP: Denisse Sutton NP-C Status:ADM I NO Location: [place] [address] Reason for Visit Chief Complaint: Shortness of breath Subjective Subjective Vomited this morning. Objective Data Objective Data Vital Signs: Vital Signs Temp Pulse Resp BP Pulse Ox O2 Del Method O2 Flow Rate 36.8 C 79 22 H 159/74 H 85 Nasal Cannula 2 10/10/24 07:06 10/10/24 07:06 10/10/24 07:06 10/10/24 07:06 10/10/24 07:11 10/10/24 07:11 10/10/24 07:11 Oxygen Flow Rate (L/min) 2 Oxygen Delivery Method Nasal Cannula Weight: 109.8 kg Body Mass Index (BMI) 45.7 Intake & Output: Intake and Output for Last 24 Hours 10/08/24 10/09/24 10/10/24 23:59 23:59 23:59 Intake Total 405 / 505 200 / 200 Balance 405 / 505 200 / 200 Lab / Micro Data 10/10/24 05:20 10/10/24 05:20 Labs: Laboratory Results - last 24 hr 10/09/24 09:18: WBC 6.1, RBC 3.26 L, Hgb 10.4 L, Hct 31.3 L, MCV 96.0, MCH 31.9,MCHC 33.2, RDW Std Deviation 55.8 H, RDW Coeff of [place]ichi 15.9 H, Plt Count 153, MPV12.7 H, Immature Gran % (Auto) 0.500, Neut % (Auto) 68.0, Lymph % (Auto) 8.5 L, [facility] % (Auto) 16.2 H, Eos % (Auto) 6.5 H, Baso % (Auto) 0.3, Absolute Neuts (auto) 4.2, Absolute Lymphs (auto) 0.52 L, Nucleated RBC % 0, Sodium 136, Potassium 4.5, Chloride 95 L, Carbon Dioxide 29.0, Anion Gap 12, BUN 34 H, Creatinine 5.18 H, Estim Creat Clear Calc 13.86 L, Est GFR (MDRD) Non-Af 9 L, BUN/Creatinine Ratio 6.6 L, Glucose 104 H, Calcium 8.8 10/09/24 14:41: POC Glucose 94 10/09/24 17:15: POC Glucose 97 10/09/24 20:13: POC Glucose 214 H 10/10/24 01:13: POC Glucose 99 10/10/24 05:20: Sodium 136, Potassium 4.9, Chloride 97 L, Carbon Dioxide 26.0, Anion Gap 13, BUN 46 H, Creatinine 6.13 H, Estim Creat Clear Calc 11.43 L, Est GFR (MDRD) Non-Af 7 L, BUN/Creatinine Ratio 7.4 L, Glucose 137 H, Calcium 8.2 10/10/24 07:04: POC Glucose 138 H Micro: Microbiology 10/09/24 09:15 Mucosa - Nose SARS-CoV-2, Influenza & RSV (PCR) - Final Radiography Diagnostic Testing: Radiology Impression Chest X-Ray 10/09/24 09:50 IMPRESSION: 1. Right perihilar opacities, which may represent pneumonitis/pneumonia. 2. Stable mild cardiomegaly. Reading Location: [facility] Physical Exam Const alert and no apparent distress HEENT head/scalp atraumatic and moist oral mucous membranes Eyes PERRL and EOMs intact bilaterally Neck no lymphadenopathy Resp normal respiratory effort Resp Narrative: Coarse breath sounds bilaterally Cardio regular rate, regular rhythm, S1 normal heart sound and S2 normal heart sound GI normal to inspection, nondistended, normoactive bowel sounds and soft to palpation Neuro Sensorium / Orientation: awake and alert Assessment & Plan Assessment/Plan (1) Pneumonia: PLAN: Suspect pneumococcal Patient received azithromycin and ceftriaxone emergency room. Will continue on the floor. Check urinary antigens for strep and Legionella. Check sputum culture. Pulmonary toilet. Though despite the patient not having a fever nor leukocytosis, her post POCUS and physical exam not consistent with volume overload at this time. Therefore the patient feel has pneumonia. Patient not looking well today. Was felt initially to be an observation stay looks like this will be extending beyond 24 hours so we will change to inpatientstatus to admission. Will consult nephrology for dialysis as well. PLAN: Plan Chronic conditions * End-stage renal disease: On hemodialysis every Thursday, and Thursday. Consult nephrology for dialysis which is to be performed the .. No need for urgent dialysis at this time. * Diabetes mellitus type 2: Continue with prandial as well as basal insulin. Add sliding scale insulin. * Glaucoma: Continue latanoprost * Obesity class III: Complicates care and recovery. VTE prophylaxis with subcu heparin CODE STATUS: Addressed with the patient. Patient wishes to be full code Charges/Coding Visit Charges Inpatient E&M: 14700 Subs Hosp L2 10/10/24 1116 <Electronically signed by Cipriano Baldwin DO> Cosigner Signature (if applicable): CC: ~ Signed [facility] Work Phone: [phone] Progress note [facility] Medical Records Department [address] [place] [address] Progress Note - Hospitalist 10/10/24 0754 MR#: [id number] Acct: [id number] Name: ZAYDA DAVIS Rep #:[id number] : 1965 58 From: Cipriano Baldwin DO PCP: TERESA Mas Status:ADM I NO Location: [place] [address] Reason for Visit Chief Complaint: Shortness of breath Subjective Subjective Vomited this morning. Objective Data Objective Data Vital Signs: Vital Signs Temp Pulse Resp BP Pulse Ox O2 Del Method O2 Flow Rate 36.8 C 79 22 H 159/74 H 85 Nasal Cannula 2 10/10/24 07:06 10/10/24 07:06 10/10/24 07:06 10/10/24 07:06 10/10/24 07:11 10/10/24 07:11 10/10/24 07:11 Oxygen Flow Rate (L/min) 2 Oxygen Delivery Method Nasal Cannula Weight: 109.8 kg Body Mass Index (BMI) 45.7 Intake & Output: Intake and Output for Last 24 Hours 10/08/24 10/09/24 10/10/24 23:59 23:59 23:59 Intake Total 405 / 505 200 / 200 Balance 405 / 505 200 / 200 Lab / Micro Data 10/10/24 05:20 10/10/24 05:20 Labs: Laboratory Results - last 24 hr 10/09/24 09:18: WBC 6.1, RBC 3.26 L, Hgb 10.4 L, Hct 31.3 L, MCV 96.0, MCH 31.9,MCHC 33.2, RDW Std Deviation 55.8 H, RDW Coeff of Chichi 15.9 H, Plt Count 153, MPV12.7 H, Immature Gran % (Auto) 0.500, Neut % (Auto) 68.0, Lymph % (Auto) 8.5 L, [facility] % (Auto) 16.2 H, Eos % (Auto) 6.5 H, Baso % (Auto) 0.3, Absolute Neuts (auto) 4.2, Absolute Lymphs (auto) 0.52 L, Nucleated RBC % 0, Sodium 136, Potassium4.5, Chloride 95 L, Carbon Dioxide 29.0, Anion Gap 12, BUN 34 H, Creatinine 5.18 H, Estim Creat Clear Calc 13.86 L, Est GFR (MDRD) Non-Af 9 L, BUN/Creatinine Ratio 6.6 L, Glucose 104 H, Calcium 8.8 10/09/24 14:41: POC Glucose 94 10/09/24 17:15: POC Glucose 97 10/09/24 20:13: POC Glucose 214 H 10/10/24 01:13: POC Glucose 99 10/10/24 05:20: Sodium 136, Potassium 4.9, Chloride 97 L, Carbon Dioxide 26.0, Anion Gap 13, BUN 46H, Creatinine 6.13 H, Estim Creat Clear Calc 11.43 L, Est GFR (MDRD) Non-Af 7 L, BUN/Creatinine Ratio 7.4 L, Glucose 137 H, Calcium 8.2 10/10/24 07:04: POC Glucose 138 H Micro: Microbiology 10/09/24 09:15 Mucosa - Nose SARS-CoV-2, Influenza & RSV (PCR) - Final Radiography Diagnostic Testing: Radiology Impression Chest X-Ray 10/09/24 09:50 IMPRESSION: 1. Right perihilar opacities, which may represent pneumonitis/pneumonia. 2. Stable mild cardiomegaly. Reading Location: [id number] Physical Exam Const alert and no apparent distress HEENT head/scalp atraumatic and moist oral mucous membranes Eyes PERRL and EOMs intact bilaterally Neck no lymphadenopathy Resp normal respiratory effort Resp Narrative: Coarse breath sounds bilaterally Cardio regular rate, regular rhythm, S1 normal heart sound and S2 normal heart sound GI normal to inspection, nondistended, normoactive bowel sounds and soft to palpation Neuro Sensorium / Orientation: awake and alert Assessment & Plan Assessment/Plan (1) Pneumonia: PLAN: Suspect pneumococcal Patient received azithromycin and ceftriaxone emergency room. Will continue on the floor. Check urinary antigens for strep and Legionella. Check sputum culture. Pulmonary toilet. Though despite the patient not having a fever nor leukocytosis, her post POCUS and physical exam not consistent with volume overload at this time. Therefore the patient feel has pneumonia. Patient not looking well today. Was felt initially to be an observation stay looks like this will be extending beyond 24 hours so we will change to inpatientstatus to admission. Will consult nephrology for dialysis as well. PLAN: Plan Chronic conditions * End-stage renal disease: On hemodialysis every Thursday, and Thursday. Consult nephrologyfor dialysis which is to be performed the .. No need for urgent dialysis at this time. * Diabetes mellitus type 2: Continue with prandial as well as basal insulin. Add sliding scale insulin. * Glaucoma: Continue latanoprost * Obesity class III: Complicates care and recovery. VTE prophylaxis with subcu heparin CODE STATUS: Addressed with the patient. Patient wishes to be full code Charges/Coding Visit Charges Inpatient E&M: 44791 Subs Hosp L2 10/10/24 1116 Cosigner Signature (if applicable): CC: ~ Signed [facility]07-13-2025 Discharge summary Author Cipriano Lundberg [facility] Note Date/Time October 09, 2024 4:20 pm [facility] Medical Records Department [address] [place] [address] Emergency Department Summary 10/09/24 MR#: [id number] Acct: [id number] Name: ZAYDA DAVIS Rep #:[id number] : 1965 58 From: Cipriano Galdamez PCP: TERESA Mas Status:ADM I NO Location: [place] [id number] History of Present Illness Chief Complaint: Shortness of Breath Informant: patient Onset/Context/Timing Onset: Yesterday Context: gradual Timing: Continuous Quality: Positive for Dyspnea on exertion Worsened by: Exertion Relieved by: Nothing Associated Symptoms cough, rhinorrhea, ear pain, fever, sore throat, subjective and chills Chest Pain: Positive for Sharp and - (Substernal) Narrative Narrative: Patient presents with shortness of breath that began yesterday. Patient states she started having a cough. Patient states she was coughing up some thick sputum. Patient states her sister had a cough recently. Patient states she didgo to dialysis yesterday and was there for 3 hours. Patient states she normallygoes on Tuesdays, , and Saturdays. Patient admits to a sore throat. Patient admits to subjective fevers and chills. Patient states her breathing isworse with exertion. Patient states nothing makes it better. Patient also admits to rhinorrhea and left ear pain. Patient also admits to some nausea and vomiting. [facility] Medical History Anemia of chronic disease ESRD (end stage renal disease) History of diabetes mellitus Chronic kidney disease with end stage renal disease on dialysis due to type 2 diabetes mellitus Hypoxia ESRD (end stage renal disease) on dialysis Dependence on renal dialysis Easy bruising Dietary restriction History of edema Hx of cardiovascular stress test Hx of echocardiogram Cardiology follow-up encounter TIA (transient ischemic attack) Acute alteration in mental status Community acquired pneumonia ESRD (end stage renal disease) on dialysis Wears glasses Insulin dependent diabetes mellitus Low iron Former smoker Cardiology follow-up encounter Chronic heart failure with preserved ejection fraction (HFpEF) History of non-ST elevation myocardial infarction (NSTEMI) (01/20/21) Debility COVID-19 (01/20/21) Inability to walk Generalized weakness Non-STEMI (non-ST elevated myocardial infarction) (01/20/21) Ischemic cerebrovascular accident (CVA) (04/2018) Respiratory insufficiency Hypoxia Anxiety Bilateral carotid bruits Hyperlipidemia Malignant hypertension Headache Type 2 diabetes mellitus without complication Essential hypertension Atherosclerosis of coronary artery of [place] heart without angina pectoris GERD (gastroesophageal reflux disease) Depression History of renal calculi History of cholelithiasis Morbid obesity Acute renal injury due to circulatory failure Home Medications ?Medication ?Instructions ?Recorded ?Last Taken ?Type aspirin 81 mg chewable tablet 81 mg PO DAILY@0800 [facility] 07/15/18 04/26/23 History atorvastatin 80 mg tablet 80 mg PO QHS CHOLESTEROL 11/1504/26/23 History torsemide 100 mg tablet 50 mg PO BID diuretic 04/26/23 History melatonin 5 mg tablet 5 mg PO HS PRN Sleep 1 01/19/21 History carvedilol 12.5 mg tablet 6.25 mg PO BID blood pressur e 09/20/20 04/27/23 History acetaminophen 325 mg tablet 650 mg (2 x 325 mg) PO Q6H PRN PRN 10/03/20 Unknown Rx (Tylenol) Pain 1-10 Or Fever #0 tabs amlodipine 10 mg tablet 10 mg PO DAILY blood pressur e 01/20/21 04/27/23 History insulin glargine U-300 conc [address] diabetes 03/21/21 04/26/23 History unit/mL (1.5 mL) subcutaneous pen (Toujeo SoloStar U-300 Insulin) gabapentin 300 mg capsule 300 mg PO TID PRN NEUROPATHY 12/10/22 Unknown History allopurinol 100 mg tablet 100 mg PO DAILY 01/13/23 History cholecalciferol (vitamin D3) 50 50 mcg PO DAILY 04/26/23 History mcg (2,000 unit) capsule ezetimibe 10 mg tablet 10 mg PO QHS 01/13/23 History vitamin B complex-vitamin C-folic 1 tab PO DAILY 01/1304/26/23 History acid 0.8 mg tablet (Nephro-Todd) nystatin 100,000 unit/gram topical 1 applic topical BI D 14 days #1 11/21/23 Unknown Rx powder (Nyamyc) BOTTLE hydralazine 100 mg tablet 100 mg PO TID 30 days #0 tab s 12/17/23 Unknown Rx insulin lispro 100 unit/mL See Protocol subcut ACHS #0 mL 12/17/23 Unknown Rx subcutaneous pen (Humalog KwikPen (U-100) Insulin) blood sugar diagnostic (OneTouch 07/31/24 Unknown His tory Verio test strips) blood-glucose meter (OneTouch 07/31/24 Unknown Histor y Verio Flex Meter) lancets 33 gauge (OneTouch Delica 07/31/24 Unknown Hi story Plus Lancet) latanoprost 0.005 % eye drops 1 drp ophthalmic (eye) Q HS 07/31/24 Unknown History ondansetron 4 mg disintegrating 4 mg PO Q6H PRN PRN na usea and 07/31/24 Unknown History tablet vomiting venlafaxine besylate 112.5 mg 112.5 mg PO DAILY Unknown History tablet,extended release 24 hr gabapentin 100 mg capsule 100 mg PO TID 10/09/24 Unkno wn History ropinirole 0.25 mg tablet 0.25 mg PO BID 10/09/24 Unkn own History Allergy/AdvReac Type Severity Reaction Status Date / Time No Known Allergies Allergy Verified 07/31/24 15:08 Family History Mother Diabetes Heart disease Hypertension Father Hypertension Heart disease Brother Heart disease Hypertension Sister Heart disease Diabetes Surgical History History of surgery History of arteriovenostomy for renal dialysis (~03/2021) History of History of appendectomy History of cholecystectomy History of coronary artery stent placement (06/2016) History of left heart catheterization (05/27/21) Social History household members: family Smoking Status: Former smoker alcohol intake: never substance use type: does not use ROS ROS ED Constitutional Constitutional ED: Reports chills and fever(s) Eyes Eyes: Denies blurry vision or change in vision ENT ENT ED: Reports ear pain left and rhinorrhea; Denies sore throat Cardiovascular Cardiovascular: Reports chest pain; Denies palpitations Respiratory/Chest Respiratory/Chest: Reports cough and dyspnea Gastrointestinal Gastrointestinal: Reports nausea and vomiting Genitourinary Genitourinary ED: Denies dysuria or hematuria Musculoskeletal Musculoskeletal: Reports back pain; Denies neck pain Integumentary Denies abscess or rash Neurologic Neurologic: Reports headache(s); Denies weakness Allergic/Immunologic Allergic/Immunologic ED: Denies mouth swelling or urticaria EXAM Physical Exam Const Vital Signs: 10/09/24 08:24 10/09/24 08:31 10/09/24 09:23 Temperature 98.2 F 98.4 F Temperature Source Oral Oral Pulse Rate 70 Respiratory Rate 67 H 14 Respiratory Effort Normal Respiratory Depth Normal Respiratory Pattern Normal Blood Pressure 152/69 H 168/80 H Blood Pressure Mean 96 109 Pulse Ox 95 98 Oxygen Delivery Method Room Air Nasal Cannula Nasal Cannula Oxygen Flow Rate (L/min) 2 10/09/24 09:33 10/09/24 10:00 10/09/24 11:00 Temperature 98.7 F 98.4 F Temperature Source Oral Oral Pulse Rate 69 70 Respiratory Rate 18 20 H Respiratory Effort Respiratory Depth Respiratory Pattern Blood Pressure 155/79 H 136/77 H Blood Pressure Mean 104 96 Pulse Ox 97 99 99 Oxygen Delivery Method Nasal Cannula Nasal Cannula Nasal Cannula Oxygen Flow Rate (L/min) 2 2 2 10/09/24 12:00 Temperature Temperature Source Pulse Rate 76 Respiratory Rate 16 Respiratory Effort Respiratory Depth Respiratory Pattern Blood Pressure 136/77 H Blood Pressure Mean 96 Pulse Ox 98 Oxygen Delivery Method Nasal Cannula Oxygen Flow Rate (L/min) 2 Positive well nourished and well developed Constitutional Narrative: BMI is 47.4. General Appearance ED: well developed and NAD HEENT Reports moist mucous membranes Neck supple and no meningeal signs Resp Resp Narrative: Respiratory effort was limited. Auscultation: diminished lung sounds diffuse Cardio regular rate and regular rhythm GI non-tender and non-distended Palpation: soft Extremity normal to inspection General Extremety ED: Negative for edema or tenderness General Extremity: Negative for edema Neuro oriented x3, CN's II-XII intact bilaterally and no sensory deficits noted Giovanna Coma Scale: document GCS findings Spontaneous Obeys Commands Oriented 15 Sensorium / Orientation: alert Speech: speech normal Motor Exam: strength 5/5 throughout Psych mental status grossly normal MDM MDM MDM Narrative Medical decision making narrative: Differential diagnosis includes pneumonia, bronchitis, cardiac dysrhythmia, cardiac ischemia, electrolyte abnormality, congestive heart failure, and viral illness. EKG will be obtained to assess for cardiac dysrhythmia and cardiac ischemia. Chest x-ray will be obtained to assess for pneumonia, bronchitis, andcongestive heart failure. CBC will be obtained to assess for leukocytosis and anemia. Basic metabolic profile will be obtained to assess for electrolyte abnormality and renal function. High-sensitivity troponin will be obtained to assess for cardiac ischemia. BNP will be obtained to assess for congestive heart failure. History & Record Review Additional record(s) reviewed:: Prior inpatient record, Prior outpatient record,Prior ED visit and Prior labs Lab Data Labs: Laboratory Results - last 24 hr 10/09/24 09:18 WBC 6.1 RBC 3.26 L Hgb 10.4 L Hct 31.3 L MCV 96.0 MCH 31.9 MCHC 33.2 RDW Std Deviation 55.8 H RDW Coeff of Chichi 15.9 H Plt Count 153 MPV 12.7 H Immature Gran % (Auto) 0.500 Neut % (Auto) 68.0 Lymph % (Auto) 8.[address] [place] % (Auto) 16.2 H Eos % (Auto) 6.5 H Baso % (Auto) 0.3 Absolute Neuts (auto) 4.2 Absolute Lymphs (auto) 0.52 L Nucleated RBC % 0 Sodium 136 Potassium 4.5 Chloride 95 L Carbon Dioxide 29.0 Anion Gap 12 BUN 34 H Creatinine 5.18 H Estim Creat Clear Calc 13.86 L Est GFR (MDRD) Non-Af 9 L BUN/Creatinine Ratio 6.6 L Glucose 104 H Calcium 8.8 Radiography Chest X-Ray - ED: 2 View, Read by ED Physician, Read by Radiologist and Right Infiltrate Diagnostic Testing: Clinical Impression(s) from Imaging Studies Chest X-Ray 10/09/24 09:50 IMPRESSION: 1. Right perihilar opacities, which may represent pneumonitis/pneumonia. 2. Stable mild cardiomegaly. Reading Location: [id number] and lateral chest x-ray was obtained. There are 2 views. On my independent interpretation, lung gilmore show a right perihilar infiltrate. There is mild cardiomegaly. Bony thorax is normal. There is no acute process noted. Radiologist also interpreted the x-ray and agrees. EKG Initial EKG: Attestation: I personally reviewed and interpreted this EKG as follows: Interpretation: Sinus Rhythm (With first-degree AV block with a rate of 67), No Acute Injury Pattern and AV Block (First-degree) Comments: EKG was obtained. On my independent interpretation, it shows sinus rhythm with a first-degree AV block with a rate of 67. FL interval was prolonged at 290 ms. QRS interval was normal at 118 ms. QTc interval was normal at 462 ms. There are no acute ST or T wave changes. There is poor R wave progression. Prior EKG tracings: available for review Prior: Unchanged (12/14/2023) Treatment and Re-Evaluation :: Patient was advised of her findings. Patient was given a dose of Zithromax here. Patient was ambulated in the emergency department on room air. Patient pulse oximeter dropped to 85% with ambulation. Because of this, admission to the hospital was recommended. Case was discussed with the hospitalist. He willadmit the patient to his service. Patient and family understood and were agreeable with the plan. All questions were answered. Discharge Plan Dx/Rx/DC Orders Clinical Impression: Pneumonia, Essential hypertension, Hypoxia Disposition Disposition: Acute Care [facility] What to do if you have Problems For any increased pain, shortness of breath, bleeding, nausea or vomiting, chestpain, or any unexpected problems, contact your Primary Care Provider. Call [facility] ([phone]) or report to the closest Emergency Room. Call 911 if necessary. 10/09/24 1620 <Electronically signed by Cipriano Lundberg DO> Cosigner Signature (if applicable): CC: TERESA Sutton ~ Signed [facility] Work Phone: [phone] Discharge summary [facility] Medical Records Department [address] [place] [address] Emergency Department Summary 10/09/24 MR#: [id number] Acct: [id number] Name: ZAYDA DAVIS Rep #:[id number] : 1965 58 From: Cipriano Galdamez PCP: TERESA Mas Status:ADM I NO Location: NC3 [id number] HPI History of Present Illness Chief Complaint: Shortness of Breath Informant: patient Onset/Context/Timing Onset: Yesterday Context: gradual Timing: Continuous Quality: Positive for Dyspnea on exertion Worsened by: Exertion Relieved by: Nothing Associated Symptoms cough, rhinorrhea, ear pain, fever, sore throat, subjective and chills Chest Pain: Positive for Sharp and - (Substernal) Narrative Narrative: Patient presents with shortness of breath that began yesterday. Patient states she started having acough. Patient states she was coughing up some thick sputum. Patient states her sister had a cough recently. Patient states she didgo to dialysis yesterday and was there for 3 hours. Patient states she normallygoes on Tuesdays, , and Saturdays. Patient admits to a sore throat. Patient admits to subjective fevers and chills. Patient states her breathing isworse with exertion. Patient states nothing makes it better. Patient also admits to rhinorrhea and left ear pain. Patient also admitsto some nausea and vomiting. [facility] Medical History Anemia of chronic disease ESRD (end stage renal disease) History of diabetes mellitus Chronic kidney disease with end stage renal disease on dialysis due to type 2 diabetes mellitus Hypoxia ESRD (end stage renal disease) on dialysis Dependence on renal dialysis Easy bruising Dietary restriction History of edema Hx of cardiovascular stress test Hx of echocardiogram Cardiology follow-up encounter TIA (transient ischemic attack) Acute alteration in mental status Community acquired pneumonia ESRD (end stage renal disease) on dialysis Wears glasses Insulin dependent diabetes mellitus Low iron Former smoker Cardiology follow-up encounter Chronic heart failure with preserved ejection fraction (HFpEF) History of non-ST elevation myocardial infarction (NSTEMI) (01/20/21) Debility COVID-19 (01/20/21) Inability to walk Generalized weakness Non-STEMI (non-ST elevated myocardial infarction) (01/20/21) Ischemic cerebrovascular accident (CVA) (04/2018) Respiratory insufficiency Hypoxia Anxiety Bilateral carotid bruits Hyperlipidemia Malignant hypertension Headache Type 2 diabetes mellitus without complication Essential hypertension Atherosclerosis of coronary artery of [place] heart without angina pectoris GERD (gastroesophageal reflux disease) Depression History of renal calculi History of cholelithiasis Morbid obesity Acute renal injury due to circulatory failure Home Medications ?Medication ?Instructions ?Recorded ?Last Taken ?Type aspirin 81 mg chewable tablet 81 mg PO DAILY@0800 [facility] 07/15/18 04/26/23 History atorvastatin 80 mg tablet 80 mg PO QHS CHOLESTEROL 11/1504/26/23 History torsemide 100 mg tablet 50 mg PO BID diuretic 04/26/23 History melatonin 5 mg tablet 5 mg PO HS PRN Sleep 1 01/19/21 History carvedilol 12.5 mg tablet 6.25 mg PO BID blood pressur e 09/20/20 04/27/23 History acetaminophen 325 mg tablet 650 mg (2 x 325 mg) PO Q6H PRN PRN 10/03/20 Unknown Rx (Tylenol) Pain 1-10 Or Fever #0 tabs amlodipine 10 mg tablet 10 mg PO DAILY blood pressur e 01/20/21 04/27/23 History insulin glargine U-300 conc 300 [address] diabetes 03/21/21 04/26/23 History unit/mL (1.5 mL) subcutaneous pen (Toujeo SoloStar U-300 Insulin) gabapentin 300 mg capsule 300 mg PO TID PRN NEUROPATHY 12/10/22 Unknown History allopurinol 100 mg tablet 100 mg PO DAILY 01/13/23 History cholecalciferol (vitamin D3) 50 50 mcg PO DAILY 04/26/23 History mcg (2,000 unit) capsule ezetimibe 10 mg tablet 10 mg PO QHS 01/13/23 History vitamin B complex-vitamin C-folic 1 tab PO DAILY 01/1304/26/23 History acid 0.8 mg tablet (Nephro-Todd) nystatin 100,000 unit/gram topical 1 applic topical BI D 14 days #1 11/21/23 Unknown Rx powder ([facility]) BOTTLE hydralazine 100 mg tablet 100 mg PO TID 30 days #0 tab s 12/17/23 Unknown Rx insulin lispro 100 unit/mL See Protocol subcut ACHS #0 mL 12/17/23 Unknown Rx subcutaneous pen (Humalog KwikPen (U-100) Insulin) [facility] Unknown His tory Verio test strips) [facility]/24 Unknown Histor y Verio Flex Meter) lancets 33 gauge (OneTouch Delica 07/31/24 Unknown Hi story Plus Lancet) latanoprost 0.005 % eye drops 1 drp ophthalmic (eye) Q HS 07/31/24 Unknown History ondansetron 4 mg disintegrating 4 mg PO Q6H PRN PRN na usea and 07/31/24 Unknown History tablet vomiting venlafaxine besylate 112.5 mg 112.5 mg PO DAILY Unknown History tablet,extended release 24 hr gabapentin 100 mg capsule 100 mg PO TID 10/09/24 Unkno wn History ropinirole 0.25 mg tablet 0.25 mg PO BID 10/09/24 Unkn own History Allergy/AdvReac Type Severity Reaction Status Date / Time No Known Allergies Allergy Verified 07/31/24 15:08 Family History Mother Diabetes Heart disease Hypertension Father Hypertension Heart disease Brother Heart disease Hypertension Sister Heart disease Diabetes Surgical History History of surgery History of arteriovenostomy for renal dialysis (~03/2021) History of History of appendectomy History of cholecystectomy History of coronary artery stent placement (06/2016) History of left heart catheterization (05/27/21) Social History household members: family Smoking Status: Former smoker alcohol intake: never substance use type: does not use ROS ROS ED Constitutional Constitutional ED: Reports chills and fever(s) Eyes Eyes: Denies blurry vision or change in vision ENT ENT ED: Reports ear pain left and rhinorrhea; Denies sore throat Cardiovascular Cardiovascular: Reports chest pain; Denies palpitations Respiratory/Chest Respiratory/Chest: Reports cough and dyspnea Gastrointestinal Gastrointestinal: Reports nausea and vomiting Genitourinary Genitourinary ED: Denies dysuria or hematuria Musculoskeletal Musculoskeletal: Reports back pain; Denies neck pain Integumentary Denies abscess or rash Neurologic Neurologic: Reports headache(s); Denies weakness Allergic/Immunologic Allergic/Immunologic ED: Denies mouth swelling or urticaria EXAM Physical Exam Const Vital Signs: 10/09/24 08:24 10/09/24 08:31 10/09/24 09:23 Temperature 98.2 F 98.4 F Temperature Source Oral Oral Pulse Rate 70 Respiratory Rate 67 H 14 Respiratory Effort Normal Respiratory Depth Normal Respiratory Pattern Normal Blood Pressure 152/69 H 168/80 H Blood Pressure Mean 96 109 Pulse Ox 95 98 Oxygen Delivery Method Room Air Nasal Cannula Nasal Cannula Oxygen Flow Rate (L/min) 2 10/09/24 09:33 10/09/24 10:00 10/09/24 11:00 Temperature 98.7 F 98.4 F Temperature Source Oral Oral Pulse Rate 69 70 Respiratory Rate 18 20 H Respiratory Effort Respiratory Depth Respiratory Pattern Blood Pressure 155/79 H 136/77 H Blood Pressure Mean 104 96 Pulse Ox 97 99 99 Oxygen Delivery Method Nasal Cannula Nasal Cannula Nasal Cannula Oxygen Flow Rate (L/min) 2 2 2 10/09/24 12:00 Temperature Temperature Source Pulse Rate 76 Respiratory Rate 16 Respiratory Effort Respiratory Depth Respiratory Pattern Blood Pressure 136/77 H Blood Pressure Mean 96 Pulse Ox 98 Oxygen Delivery Method Nasal Cannula Oxygen Flow Rate (L/min) 2 Positive well nourished and well developed Constitutional Narrative: BMI is 47.4. General Appearance ED: well developed and NAD HEENT Reports moist mucous membranes Neck supple and no meningeal signs Resp Resp Narrative: Respiratory effort was limited. Auscultation: diminished lung sounds diffuse Cardio regular rate and regular rhythm GI non-tender and non-distended Palpation: soft Extremity normal to inspection General Extremety ED: Negative for edema or tenderness General Extremity: Negative for edema Neuro oriented x3, CN's II-XII intact bilaterally and no sensory deficits noted Giovanna Coma Scale: document GCS findings Spontaneous Obeys Commands Oriented 15 Sensorium / Orientation: alert Speech: speech normal Motor Exam: strength 5/5 throughout Psych mental status grossly normal MDM MDM MDM Narrative Medical decision making narrative: Differential diagnosis includes pneumonia, bronchitis, cardiac dysrhythmia, cardiac ischemia, electrolyte abnormality, congestive heart failure, and viral illness. EKG will be obtained to assess for cardiac dysrhythmia and cardiac ischemia. Chest x-ray will be obtained to assess for pneumonia, bronchitis, andcongestive heart failure. CBC will be obtained to assess for leukocytosis and anemia. Basic metabolic profile will be obtained to assess for electrolyte abnormality and renal function. High-sensitivity troponin will be obtained to assess for cardiac ischemia. BNP will be obtained to assess for congestive heart failure. History & Record Review Additional record(s) reviewed:: Prior inpatient record, Prior outpatient record,Prior ED visit and Prior labs Lab Data Labs: Laboratory Results - last 24 hr 10/09/24 09:18 WBC 6.1 RBC 3.26 L Hgb 10.4 L Hct 31.3 L MCV 96.0 MCH 31.9 MCHC 33.2 RDW Std Deviation 55.8 H RDW Coeff of [place] 15.9 H Plt Count 153 MPV 12.7 H Immature Gran % (Auto) 0.500 Neut % (Auto) 68.0 Lymph % (Auto) 8.[address] [place] % (Auto) 16.2 H Eos % (Auto) 6.5 H Baso % (Auto) 0.3 Absolute Neuts (auto) 4.2 Absolute Lymphs (auto) 0.52 L Nucleated RBC % 0 Sodium 136 Potassium 4.5 Chloride 95 L Carbon Dioxide 29.0 Anion Gap 12 BUN 34 H Creatinine 5.18 H Estim Creat Clear Calc 13.86 L Est GFR (MDRD) Non-Af 9 L BUN/Creatinine Ratio 6.6 L Glucose 104 H Calcium 8.8 Radiography Chest X-Ray - ED: 2 View, Read by ED Physician, Read by Radiologist and Right Infiltrate Diagnostic Testing: Clinical Impression(s) from Imaging Studies Chest X-Ray 10/09/24 09:50 IMPRESSION: 1. Right perihilar opacities, which may represent pneumonitis/pneumonia. 2. Stable mild cardiomegaly. Reading Location: [facility] and lateral chest x-ray was obtained. There are 2 views. On my independent interpretation, lung gilmore show a right perihilar infiltrate. There is mild cardiomegaly. Bony thorax is normal. There is no acute process noted. Radiologist also interpreted the x-ray and agrees. EKG Initial EKG: Attestation: I personally reviewed and interpreted this EKG as follows: Interpretation: Sinus Rhythm (With first-degree AV block with a rate of 67), No Acute Injury Pattern and AV Block (First-degree) Comments: EKG was obtained. On my independent interpretation, it shows sinus rhythm with a first-degree AV block with a rate of 67. FL interval was prolonged at 290 ms. QRS interval was normal at 118ms. QTc interval was normal at 462 ms. There are no acute ST or T wave changes. There is poor R wave progression. Prior EKG tracings: available for review Prior: Unchanged (12/14/2023) Treatment and Re-Evaluation :: Patient was advised of her findings. Patient was given a dose of Zithromax here. Patient was ambulated in the emergency department on room air. Patient pulse oximeter dropped to 85% with ambulation. Because of this, admission to the hospital was recommended. Case was discussed with the hospitalist.He willadmit the patient to his service. Patient and family understood and were agreeable with the plan. All questions were answered. Discharge Plan Dx/Rx/DC Orders Clinical Impression: Pneumonia, Essential hypertension, Hypoxia Disposition Disposition: [facility] What to do if you have Problems For any increased pain, shortness of breath, bleeding, nausea or vomiting, chestpain, or any unexpected problems, contact your Primary Care Provider. Call [facility] ([phone]) or report tothe closest Emergency Room. Call 911 if necessary. 10/09/24 1620 Cosigner Signature (if applicable): CC: TERESA Sutton ~ Signed [facility]07-13-2025 History and physical note Author Cipriano Baldwin [facility] Note Date/Time October 09, 2024 1:15 pm [facility] Medical Records Department [address] [place] [address] H&P Exam - Hospitalist 10/09/24 1305 MR#: [id number] Acct: [id number] Name: ZAYDA DAVIS Rep #:[id number] : 1965 58 From: Cipriano Baldwin DO PCP: TERESA Mas Status:REG E R Location: ED HPI - General General Date of Service: 10/09/24 Chief Complaint: Shortness of breath HPI Narrative ZAYDA DAVIS, is a 58 F who presents with shortness of breath. This is a 58-year-old female with history of end-stage renal disease on dialysis every Thursday. Has been short of breath for the past 2 days. Having a cough, also as well has ear pain feel that she has a ear infection. Presented to the emergency room and had a chest x-ray showed possible pneumonia patient received ceftriaxone azithromycin. They ambulated her and she dropped on 85% on room air, patient is not on oxygen at home. The hospital service was contacted for admission. Patient denies any recent weight change nor any lower extremity edema. [facility] Medical History Anemia of chronic disease ESRD (end stage renal disease) History of diabetes mellitus Chronic kidney disease with end stage renal disease on dialysis due to type 2 diabetes mellitus Hypoxia ESRD (end stage renal disease) on dialysis Dependence on renal dialysis Easy bruising Dietary restriction History of edema Hx of cardiovascular stress test Hx of echocardiogram Cardiology follow-up encounter TIA (transient ischemic attack) Acute alteration in mental status Community acquired pneumonia ESRD (end stage renal disease) on dialysis Wears glasses Insulin dependent diabetes mellitus Low iron Former smoker Cardiology follow-up encounter Chronic heart failure with preserved ejection fraction (HFpEF) History of non-ST elevation myocardial infarction (NSTEMI) (01/20/21) Debility COVID-19 (01/20/21) Inability to walk Generalized weakness Non-STEMI (non-ST elevated myocardial infarction) (01/20/21) Ischemic cerebrovascular accident (CVA) (04/2018) Respiratory insufficiency Hypoxia Anxiety Bilateral carotid bruits Hyperlipidemia Malignant hypertension Headache Type 2 diabetes mellitus without complication Essential hypertension Atherosclerosis of coronary artery of [place] heart without angina pectoris GERD (gastroesophageal reflux disease) Depression History of renal calculi History of cholelithiasis Morbid obesity Acute renal injury due to circulatory failure Home Medications ?Medication ?Instructions ?Recorded ?Last Taken ?Type aspirin 81 mg chewable tablet 81 mg PO DAILY@0800 [facility] 07/15/18 04/26/23 History atorvastatin 80 mg tablet 80 mg PO QHS CHOLESTEROL 11/1504/26/23 History torsemide 100 mg tablet 50 mg PO BID diuretic 04/26/23 History melatonin 5 mg tablet 5 mg PO HS PRN Sleep 1 01/19/21 History carvedilol 12.5 mg tablet 6.25 mg PO BID blood pressur e 09/20/20 04/27/23 History acetaminophen 325 mg tablet 650 mg (2 x 325 mg) PO Q6H PRN PRN 10/03/20 Unknown Rx (Tylenol) Pain 1-10 Or Fever #0 tabs amlodipine 10 mg tablet 10 mg PO DAILY blood pressur e 01/20/21 04/27/23 History insulin glargine U-300 conc 300 [address] diabetes 03/21/21 04/26/23 History unit/mL (1.5 mL) subcutaneous pen (Toujeo SoloStar U-300 Insulin) gabapentin 300 mg capsule 300 mg PO TID PRN NEUROPATHY 12/10/22 Unknown History allopurinol 100 mg tablet 100 mg PO DAILY 01/13/23 History cholecalciferol (vitamin D3) 50 50 mcg PO DAILY 04/26/23 History mcg (2,000 unit) capsule ezetimibe 10 mg tablet 10 mg PO QHS 01/13/23 History vitamin B complex-vitamin C-folic 1 tab PO DAILY 01/1304/26/23 History acid 0.8 mg tablet (Nephro-Todd) nystatin 100,000 unit/gram topical 1 applic topical BI D 14 days #1 11/21/23 Unknown Rx powder ([facility]) BOTTLE hydralazine 100 mg tablet 100 mg PO TID 30 days #0 tab s 12/17/23 Unknown Rx insulin lispro 100 unit/mL See Protocol subcut ACHS #0 mL 12/17/23 Unknown Rx subcutaneous pen (Humalog KwikPen (U-100) Insulin) blood sugar diagnostic (OneTouch 07/31/24 Unknown His tory Verio test strips) blood-glucose meter (OneTouch 07/31/24 Unknown Histor y Verio Flex Meter) lancets 33 gauge (OneTouch Delica 07/31/24 Unknown Hi story Plus Lancet) latanoprost 0.005 % eye drops 1 drp ophthalmic (eye) Q HS 07/31/24 Unknown History ondansetron 4 mg disintegrating 4 mg PO Q6H PRN PRN na usea and 07/31/24 Unknown History tablet vomiting venlafaxine besylate 112.5 mg 112.5 mg PO DAILY Unknown History tablet,extended release 24 hr gabapentin 100 mg capsule 100 mg PO TID 10/09/24 Unkno wn History ropinirole 0.25 mg tablet 0.25 mg PO BID 10/09/24 Unkn own History Allergy/AdvReac Type Severity Reaction Status Date / Time No Known Allergies Allergy Verified 07/31/24 15:08 Family History Mother Diabetes Heart disease Hypertension Father Hypertension Heart disease Brother Heart disease Hypertension Sister Heart disease Diabetes Surgical History History of surgery History of arteriovenostomy for renal dialysis (~03/2021) History of History of appendectomy History of cholecystectomy History of coronary artery stent placement (06/2016) History of left heart catheterization (05/27/21) Social History household members: family Smoking Status: Former smoker alcohol intake: never substance use type: does not use ROS ROS Narrative All review of systems were negative except as mentioned above in the history of present illness and the other review of systems. Vital Signs Vital Signs Vital Signs: 10/09/24 08:24 10/09/24 08:31 10/09/24 09:23 Temperature 36.8 C 36.9 C Temperature Source Oral Oral Pulse Rate 70 Respiratory Rate 67 H 14 Respiratory Effort Normal Respiratory Depth Normal Respiratory Pattern Normal Blood Pressure 152/69 H 168/80 H Blood Pressure Mean 96 109 Pulse Ox 95 98 Oxygen Delivery Method Room Air Nasal Cannula Nasal Cannula Oxygen Flow Rate (L/min) 2 10/09/24 09:33 10/09/24 10:00 10/09/24 11:00 Temperature 37.1 C 36.9 C Temperature Source Oral Oral Pulse Rate 69 70 Respiratory Rate 18 20 H Respiratory Effort Respiratory Depth Respiratory Pattern Blood Pressure 155/79 H 136/77 H Blood Pressure Mean 104 96 Pulse Ox 97 99 99 Oxygen Delivery Method Nasal Cannula Nasal Cannula Nasal Cannula Oxygen Flow Rate (L/min) 2 2 2 10/09/24 12:00 Temperature Temperature Source Pulse Rate 76 Respiratory Rate 16 Respiratory Effort Respiratory Depth Respiratory Pattern Blood Pressure 136/77 H Blood Pressure Mean 96 Pulse Ox 98 Oxygen Delivery Method Nasal Cannula Oxygen Flow Rate (L/min) 2 Weight Weight: 113.7 kg Body Mass Index (BMI) 47.3 Physical Exam Narrative POCUS: Indication is for dyspnea. Using limited FAST exam, visualize the IVC I did show that it was collapsible with inspiration. Heart was visually but was rather obscured by the abdomen so was not a good view of that but grossly appeared normal. Const alert and no apparent distress HEENT normocephalic and head/scalp atraumatic Resp normal respiratory effort and no retractions Resp Narrative: Bibasilar crackles Cardio regular rate, regular rhythm, S1 normal heart sound and S2 normal heart sound GI normal to inspection, nondistended, normoactive bowel sounds, soft to palpation,non-tender and non-distended GI Narrative: Obese. Extremity normal to inspection Neuro Sensorium / Orientation: awake, alert, oriented to person, oriented to place andoriented to time Psych affect normal Results Lab / Micro Data 10/09/24 09:18 10/09/24 09:18 Labs: Laboratory Results - last 24 hr 10/09/24 09:18: WBC 6.1, RBC 3.26 L, Hgb 10.4 L, Hct 31.3 L, MCV 96.0, MCH 31.9,MCHC 33.2, RDW Std Deviation 55.8 H, RDW Coeff of [place] 15.9 H, Plt Count 153, MPV12.7 H, Immature Gran % (Auto) 0.500, Neut % (Auto) 68.0, Lymph % (Auto) 8.5 L, [facility] % (Auto) 16.2 H, Eos % (Auto) 6.5 H, Baso % (Auto) 0.3, Absolute Neuts (auto) 4.2, Absolute Lymphs (auto) 0.52 L, Nucleated RBC % 0, Sodium 136, Potassium 4.5, Chloride 95 L, Carbon Dioxide 29.0, Anion Gap 12, BUN 34 H, Creatinine 5.18 H, Estim Creat Clear Calc 13.86 L, Est GFR (MDRD) Non-Af 9 L, BUN/Creatinine Ratio 6.6 L, Glucose 104 H, Calcium 8.8 Micro: Microbiology 10/09/24 09:15 Mucosa - Nose SARS-CoV-2, Influenza & RSV (PCR) - Final Imaging Radiology Impression Chest X-Ray 10/09/24 09:50 IMPRESSION: 1. Right perihilar opacities, which may represent pneumonitis/pneumonia. 2. Stable mild cardiomegaly. Reading Location: [id number] Assessment & Plan Assessment/Plan (1) Pneumonia: PLAN: Suspect pneumococcal Patient received azithromycin and ceftriaxone emergency room. Will continue on the floor. Check urinary antigens for strep and Legionella. Check sputum culture. Pulmonary toilet. Though despite the patient not having a fever nor leukocytosis, her post POCUS and physical exam not consistent with volume overload at this time. Therefore the patient feel has pneumonia. Patient did require oxygen in the emergency room with ambulation therefore cannot be discharged home. Will continue to monitor PLAN: Plan Chronic conditions * End-stage renal disease: On hemodialysis every Thursday, and Thursday. If the patient requires being hospitalized through Thursday, will consult nephrology to continue with the dialysis. No need for urgent dialysis at this time. * Diabetes mellitus type 2: Continue with prandial as well as basal insulin. Add sliding scale insulin. * Glaucoma: Continue latanoprost * Obesity class III: Complicates care and recovery. VTE prophylaxis with subcu heparin CODE STATUS: Addressed with the patient. Patient wishes to be full code Charges/Coding Visit Charges Inpatient E&M: 28188 Init Hosp L3 10/09/24 1315 <Electronically signed by Cipriano Baldwin DO> Cosigner Signature (if applicable): CC: TERESA Sutton; Dr. Cipriano Baldwin DO~ Signed [facility] Work Phone: [phone]) 801-796507-13-2025 History and physical note [facility] Medical Records Department [address] [place] [id number] H&P Exam - Hospitalist 10/09/24 1305 MR#: [id number] Acct: [id number] Name: ZAYDA DAVIS Rep #:[id number] : 1965 58 From: Cipriano Baldwin DO PCP: TERESA Mas Status:REG E R Location: ED HPI - General General Date of Service: 10/09/24 Chief Complaint: Shortness of breath HPI Narrative ZAYDA DAVIS, is a 58 F who presents with shortness of breath. This is a 58-year-old female with history of end-stage renal disease on dialysis every Thursday. Has been short of breath for the past 2 days. Having a cough, also as well has ear pain feel that she has a ear infection. Presented to the emergency room and had a chest x-ray showed possible pneumonia patient received ceftriaxone azithromycin. They ambulated her and she dropped on 85% on room air, patient is not on oxygen at home. The hospital service was contacted for admission. Patient denies any recent weight change nor any lower extremity edema. [facility] Medical History Anemia of chronic disease ESRD (end stage renal disease) History of diabetes mellitus Chronic kidney disease with end stage renal disease on dialysis due to type 2 diabetes mellitus Hypoxia ESRD (end stage renal disease) on dialysis Dependence on renal dialysis Easy bruising Dietary restriction History of edema Hx of cardiovascular stress test Hx of echocardiogram Cardiology follow-up encounter TIA (transient ischemic attack) Acute alteration in mental status Community acquired pneumonia ESRD (end stage renal disease) on dialysis Wears glasses Insulin dependent diabetes mellitus Low iron Former smoker Cardiology follow-up encounter Chronic heart failure with preserved ejection fraction (HFpEF) History of non-ST elevation myocardial infarction (NSTEMI) (01/20/21) Debility COVID-19 (01/20/21) Inability to walk Generalized weakness Non-STEMI (non-ST elevated myocardial infarction) (01/20/21) Ischemic cerebrovascular accident (CVA) (04/2018) Respiratory insufficiency Hypoxia Anxiety Bilateral carotid bruits Hyperlipidemia Malignant hypertension Headache Type 2 diabetes mellitus without complication Essential hypertension Atherosclerosis of coronary artery of [place] heart without angina pectoris GERD (gastroesophageal reflux disease) Depression History of renal calculi History of cholelithiasis Morbid obesity Acute renal injury due to circulatory failure Home Medications ?Medication ?Instructions ?Recorded ?Last Taken ?Type aspirin 81 mg chewable tablet 81 mg PO DAILY@0800 HEAR T HEALTH 07/15/18 04/26/23 History atorvastatin 80 mg tablet 80 mg PO QHS CHOLESTEROL 11/1504/26/23 History torsemide 100 mg tablet 50 mg PO BID diuretic 04/26/23 History melatonin 5 mg tablet 5 mg PO HS PRN Sleep 1 01/19/21 History carvedilol 12.5 mg tablet 6.25 mg PO BID blood pressur e 09/20/20 04/27/23 History acetaminophen 325 mg tablet 650 mg (2 x 325 mg) PO Q6H PRN PRN 10/03/20 Unknown Rx (Tylenol) Pain 1-10 Or Fever #0 tabs amlodipine 10 mg tablet 10 mg PO DAILY blood pressur e 01/20/21 04/27/23 History insulin glargine U-300 conc [address] diabetes 03/21/21 04/26/23 History unit/mL (1.5 mL) subcutaneous pen (Toujeo SoloStar U-300 Insulin) gabapentin 300 mg capsule 300 mg PO TID PRN NEUROPATHY 12/10/22 Unknown History allopurinol 100 mg tablet 100 mg PO DAILY 01/13/23 History cholecalciferol (vitamin D3) 50 50 mcg PO DAILY 04/26/23 History mcg (2,000 unit) capsule ezetimibe 10 mg tablet 10 mg PO QHS 01/13/23 History vitamin B complex-vitamin C-folic 1 tab PO DAILY 01/1304/26/23 History acid 0.8 mg tablet (Nephro-Todd) nystatin 100,000 unit/gram topical 1 applic topical BI D 14 days #1 11/21/23 Unknown Rx powder ([facility]) BOTTLE hydralazine 100 mg tablet 100 mg PO TID 30 days #0 tab s 12/17/23 Unknown Rx insulin lispro 100 unit/mL See Protocol subcut ACHS #0 mL 12/17/23 Unknown Rx subcutaneous pen (Humalog KwikPen (U-100) Insulin) [facility] His tory Verio test strips) blood-glucose [facility] Unknown Histor y Verio Flex Meter) lancets 33 gauge (OneTouch Delica 07/31/24 Unknown Hi story Plus Lancet) latanoprost 0.005 % eye drops 1 drp ophthalmic (eye) Q HS 07/31/24 Unknown History ondansetron 4 mg disintegrating 4 mg PO Q6H PRN PRN na usea and 07/31/24 Unknown History tablet vomiting venlafaxine besylate 112.5 mg 112.5 mg PO DAILY Unknown History tablet,extended release 24 hr gabapentin 100 mg capsule 100 mg PO TID 10/09/24 Unkno wn History ropinirole 0.25 mg tablet 0.25 mg PO BID 10/09/24 Unkn own History Allergy/AdvReac Type Severity Reaction Status Date / Time No Known Allergies Allergy Verified 07/31/24 15:08 Family History Mother Diabetes Heart disease Hypertension Father Hypertension Heart disease Brother Heart disease Hypertension Sister Heart disease Diabetes Surgical History History of surgery History of arteriovenostomy for renal dialysis (~03/2021) History of History of appendectomy History of cholecystectomy History of coronary artery stent placement (06/2016) History of left heart catheterization (05/27/21) Social History household members: family Smoking Status: Former smoker alcohol intake: never substance use type: does not use ROS ROS Narrative All review of systems were negative except as mentioned above in the history of present illness andthe other review of systems. Vital Signs Vital Signs Vital Signs: 10/09/24 08:24 10/09/24 08:31 10/09/24 09:23 Temperature 36.8 C 36.9 C Temperature Source Oral Oral Pulse Rate 70 Respiratory Rate 67 H 14 Respiratory Effort Normal Respiratory Depth Normal Respiratory Pattern Normal Blood Pressure 152/69 H 168/80 H Blood Pressure Mean 96 109 Pulse Ox 95 98 Oxygen Delivery Method Room Air Nasal Cannula Nasal Cannula Oxygen Flow Rate (L/min) 2 10/09/24 09:33 10/09/24 10:00 10/09/24 11:00 Temperature 37.1 C 36.9 C Temperature Source Oral Oral Pulse Rate 69 70 Respiratory Rate 18 20 H Respiratory Effort Respiratory Depth Respiratory Pattern Blood Pressure 155/79 H 136/77 H Blood Pressure Mean 104 96 Pulse Ox 97 99 99 Oxygen Delivery Method Nasal Cannula Nasal Cannula Nasal Cannula Oxygen Flow Rate (L/min) 2 2 2 10/09/24 12:00 Temperature Temperature Source Pulse Rate 76 Respiratory Rate 16 Respiratory Effort Respiratory Depth Respiratory Pattern Blood Pressure 136/77 H Blood Pressure Mean 96 Pulse Ox 98 Oxygen Delivery Method Nasal Cannula Oxygen Flow Rate (L/min) 2 Weight Weight: 113.7 kg Body Mass Index (BMI) 47.3 Physical Exam Narrative POCUS: Indication is for dyspnea. Using limited FAST exam, visualize the IVC I did show that it wascollapsible with inspiration. Heart was visually but was rather obscured by the abdomen so was not a good view of that but grossly appeared normal. Const alert and no apparent distress HEENT normocephalic and head/scalp atraumatic Resp normal respiratory effort and no retractions Resp Narrative: Bibasilar crackles Cardio regular rate, regular rhythm, S1 normal heart sound and S2 normal heart sound GI normal to inspection, nondistended, normoactive bowel sounds, soft to palpation,non-tender and non-distended GI Narrative: Obese. Extremity normal to inspection Neuro Sensorium / Orientation: awake, alert, oriented to person, oriented to place andoriented to time Psych affect normal Results Lab / Micro Data 10/09/24 09:18 10/09/24 09:18 Labs: Laboratory Results - last 24 hr 10/09/24 09:18: WBC 6.1, RBC 3.26 L, Hgb 10.4 L, Hct 31.3 L, MCV 96.0, MCH 31.9,MCHC 33.2, RDW Std Deviation 55.8 H, RDW Coeff of [place] 15.9 H, Plt Count 153, MPV12.7 H, Immature Gran % (Auto) 0.500, Neut % (Auto) 68.0, Lymph % (Auto) 8.5 L, [facility] [place] [facility] % (Auto) 16.2 H, Eos % (Auto) 6.5 H, Baso % (Auto) 0.3, Absolute Neuts (auto) 4.2, Absolute Lymphs (auto) 0.52 L, Nucleated RBC % 0, Sodium 136, Potassium4.5, Chloride 95 L, Carbon Dioxide 29.0, Anion Gap 12, BUN 34 H, Creatinine 5.18 H, Estim Creat Clear Calc 13.86 L, Est GFR (MDRD) Non-Af 9 L, BUN/Creatinine Ratio 6.6 L, Glucose 104 H, Calcium 8.8 Micro: Microbiology 10/09/24 09:15 Mucosa - Nose SARS-CoV-2, Influenza & RSV (PCR) - Final Imaging Radiology Impression Chest X-Ray 10/09/24 09:50 IMPRESSION: 1. Right perihilar opacities, which may represent pneumonitis/pneumonia. 2. Stable mild cardiomegaly. Reading Location: [id number] Assessment & Plan Assessment/Plan (1) Pneumonia: PLAN: Suspect pneumococcal Patient received azithromycin and ceftriaxone emergency room. Will continue on the floor. Check urinary antigens for strep and Legionella. Check sputum culture. Pulmonary toilet. Though despite the patient not having a fever nor leukocytosis, her post POCUS and physical exam not consistent with volume overload at this time. Therefore the patient feel has pneumonia. Patient did require oxygen in the emergency room with ambulation therefore cannot be discharged home. Will continue to monitor PLAN: Plan Chronic conditions * End-stage renal disease: On hemodialysis every Thursday, and Thursday. If the patient requires being hospitalized through Thursday, will consult nephrology to continue with the dialysis. No need for urgent dialysis at this time. * Diabetes mellitus type 2: Continue with prandial as well as basal insulin. Add sliding scale insulin. * Glaucoma: Continue latanoprost * Obesity class III: Complicates care and recovery. VTE prophylaxis with subcu heparin CODE STATUS: Addressed with the patient. Patient wishes to be full code Charges/Coding Visit Charges Inpatient E&M: 41180 Init Hosp L3 10/09/24 1315 Cosigner Signature (if applicable): CC: TERESA Sutton; Dr. Cipriano Baldwin, ~ Signed [facility]07-13-2025 Radiology Diagnostic study note [facility] Imaging Services [address] [place] [id number] Chest PA and Lateral MR#: [id number] Acct: [id number] Name: ZAYDA DAVIS Rep #: [id number] : 1965 F 58 From: No Power MD PCP: TERESA Mas Status: REG E R Study:Chest PA and Lateral Date of Exam: 10/09/24 Exam# [id number] Ordering Dr: Cipriano Lundberg DO PROCEDURE: CHEST PA AND LATERAL 10/09/2024 REASON FOR EXAM: DYSPNEA TECHNIQUE: CHEST PA AND LATERAL COMPARISON: Chest radiograph 07/31/2024. FINDINGS: Hardware: None. Heart: Mild cardiomegaly. Mediastinum: There are atherosclerotic calcifications of the thoracic aorta. Lungs: Low lung volumes. Right perihilar opacities. No obvious pleural effusion or pneumothorax. Bones: Degenerative changes are identified within the thoracic spine. RAD/Chest PA and Lateral IMPRESSION: 1. Right perihilar opacities, which may represent pneumonitis/pneumonia. 2. Stable mild cardiomegaly. Reading Location: [id number] CC: TERESA Sutton; Dr. Cipriano Lundberg, DO ~ Transportation Lead: Signed [facility]07-07-2025 Note Vitals: -Weight: 245.8 lbs History & Physical: [facility] to have her Navid sensor reviewed and changed in office today. She has been wearing this for the last 2 weeks. She is currently managed on Tresiba 20 units daily andHumalog 8 units with lunch and 5 units with dinner. 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 Her sister Stephy, who is her caregiver, is here for the visit. Past Medical History: Problems Active Jaundice Hypoxia Episode of shaking Breast cancer screening ESRD on dialysis Diabetic neuropathy Postmenopausal DM type 2 with diabetic mixed hyperlipidemia Low back pain Systolic murmur Hearing loss Anxiety Generalized anxiety disorder Major depressive disorder Screening for colon cancer Screening for breast cancer Medicare annual wellness visit, subsequent (HFpEF) heart failure with preserved ejection fraction Mental status alteration On anticoagulant therapy Diabetic retinopathy CAD (coronary artery disease) Hammertoe of right foot Mass of left lower leg Chronic headaches 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 to type 2 diabetes mellitus Vitamin D deficiency Back pain Congestive heart failure Type 2 diabetes mellitus Iron deficiency anemia Chronic constipation Anemia History of stroke Hyperlipidemia Hypertension Medications: acetaminophen: 650 mg = 2 tab(s), Oral, q6h, PRN (as needed for pain) allopurinol: 100 mg = 1 tab(s), Oral, qDay amLODIPine: 10 mg = 1 tab(s), Oral, qDay aspirin: 81 mg = 1 tab(s), Oral, qDay atorvastatin: 80 mg = 1 tab(s), Oral, qDay carvedilol: 12.5 mg = 1 tab(s), Oral, BID cholecalciferol: 50 mcg = 1 tab(s), Oral, Daily DME: See Instructions, qs for 1 month supply DME: See Instructions, Check and Log Blood Pressure Daily DME: See Instructions, One rollator.DX stroke DME: See Instructions, One Touch Verio Glucometer. Use daily to monitor blood sugars DME (Blood Glucose Test Strips): See Instructions, 1 bottle of 100. Onetouch Verio. Testing QID. dx: E10.9 DME: See Instructions, qs 1 month supply. one touch lancets.Pt tests 4 times a day DME: See Instructions, qs for 1 month supply. 31 G x 8 mm 5" use as diecte DME: See Instructions, Freestyle Glucometer. Use to check blood sugars 4 times daily with insulin administrations DME: See Instructions, Freestyle Test Strips. Use to check blood sugar 4 times daily with insulin administrations. #1 box of 100 strips DME: See Instructions, One touch Ultra2 glucometer. Dispense #1. 0 refills. Use as directed to check blood sugar. DME: See Instructions, Discontinue home o2--patient no longer needing. . DME: See Instructions, Place once sensor to the back of the upper arm every 15 days. Use reader or phone toby for daily blood sugar checks. 1 month supply DME: See Instructions, Use reader to scan sensor once with every new sensor. Keep reader within 33 feet of the sensor and transmitter for daily blood sugar checks ezetimibe: 10 mg = 1 tab(s), Oral, qDay gabapentin: 100 mg = 1 cap(s), Oral, BID, Corrected dose to 100 mg bid hydrALAZINE: 100 mg = 1 tab(s), Oral, TID insulin aspart (Novolog): 5 unit(s), Subcutaneous, BIDAC, before lunch and dinner.If blood sugar <80 do not give. insulin glargine: 20 unit(s), Subcutaneous, qDay melatonin: 5 mg = 1 tab(s), Oral, qHS, PRN (as needed for insomnia) Misc Medication (ONETOUCH DELICA PLUS LANCETS EXTRA FINE 33G MISC) multivitamin: 1 tab(s), Oral, qDay multivitamin: 1 cap(s), Oral, qDay nystatin topical: 1 toby, Topical, BID torsemide: 50 mg = 0.5 tab(s), Oral, BID venlafaxine: 112.5 mg = 1 tab(s), Oral, qDay, with food Labs: -POC HbA1c: 6.8% (07/12/24) Diabetes Labs No qualifying data available. Diabetes Type I Labs Cholesterol: 116 mg/dL (04/20/24) HDL Cholesterol: 39 mg/dL Low (04/20/24) LDL Cholesterol: 51 mg/dL (04/20/24) Triglycerides: 129 mg/dL (04/20/24) Creatinine Lvl (s): 3.97 mg/dL High (08/16/24) TSH: 3.85 mcIU/mL High (04/20/24) Hgb A1c: 5.4 % (07/07/22) Blood Glucose Monitoring: Has been wearing the Navid monitor. Results are listed below for the last 14 days: Very High (>250): 10% High (181-250): 34% Target Range (70-180): 55% Low (54-69): 1% Very Low (<54): 0% Average Glucose: 173 mg/dL Glucose Management Indicator: 7.4% % Time CGM is Active: 97% Navid report attached to document for additional information. Assessment and Plan: Reviewed Zayda's Navid report with her and her sister. Overall, sugars are under fair control. Sheis still having some elevations throughout the day, but are not consistently high. Difficult to determine what she is eating or how consistently insulin is being administered. Did have a few lows in the evening and sister June states she might have given her 8 units at dinner instead of 5 units onaccident. Unclear if this is truly the case and patient and caregiver are unsure. Reiterated the importance of taking 8 units before lunch and 5 units before dinner. Okay to do a small dose of Novolog with her bedtime snack if sugars are high as they have currently been doing at home. No changes to medications and will see her back in 6 weeks when her next A1c is due. Instructed to call with any issues. Total time spent caring for the patient today was 25 minutes. This includes time spent before the visit reviewing the chart (lab results, past visit documentation, reviewing CGM data etc.), time spent during the visit, and time spend after the visit on documentation, sending in prescriptions, consulting with peers, etc. Digitally Signed by Marie Quiroz PharmD on 10/03/2024 03:58 PM [facility]05-06-2025 [facility] 07-31-2024 Evaluation note* Diagnosis Onset Date Resolution Status Admit Date Nausea & vomiting resolved July 8:34pm Pulmonary edema resolved July 31, 2024 8:34pm Anemia of chronic disease inactive July 31, 2024 8:34pm Chronic kidney disease with end stage renal disease on dialysis due to type inactive July 31, 2024 8: 34pm ESRD (end stage renal disease) inact ezekiel July 31, 2024 8:34pm History of diabetes mellitus inactiv e July 31, 2024 8:34pm Hypoxia inactive July 31, 2024 8:34pm Hypoxia acute October 09 12:58pm Pneumonia acute October 09 12:58pm Essential hypertension chronic Ju ly 2024 12:58pm [facility] Work Phone: 1(195) 854-683805-04-2025 Evaluation note* Diagnosis Onset Date Resolution Status Admit Date Nausea & vomiting resolved July 8:34pm Pulmonary edema resolved July 31, 2024 8:34pm Anemia of chronic disease inactive July 31, 2024 8:34pm Chronic kidney disease with end stage renal disease on dialysis due to type inactive July 31, 2024 8: 34pm ESRD (end stage renal disease) inact ezekiel July 31, 2024 8:34pm History of diabetes mellitus inactiv e July 31, 2024 8:34pm Hypoxia inactive July 31, 2024 8:34pm Hypoxia acute October 10 11:15am Pneumonia acute October 10 11:15am Essential hypertension chronic Ju ly 2024 11:15am [facility] Work Phone: 1(323) 285-844505-04-2025 Hospital Discharge instructions Patient Education 07/31/2024 04:41:44 Vomiting (Adult) Vomiting (Adult) Vomiting is a common symptom that may be due to different causes. These include gastroenteritis ("stomach flu"), food poisoning and gastritis. There are other [...] and water are not available, use alcohol-based plow and boring machine tender to keep from spreading the infection to [...] Yellow color of the eyes or skin [id number] [employer] [place] [address]. All rights reserved. This information is not intended as a substitute for professional medical care. Always follow yourhealthcare professional's instructions. Follow Up Care 07/31/2024 02:49:09 With:Go to emergency room if symptoms worsen Address:Unknown When:2-4 days With:DENISSE SUTTON Address: [address] [place] [address] [phone] When:2-4 days [facility] 05-04-2025 Note Discharge Instructions Thank you for allowing [facility] to assist you with your healthcare needs. [...] 2-4 days Follow Up with DENISSE SUTTON When:Within 2-4 days Where:[place] [address]- [phone] Allergies NKA Medications Please ask your primary [...] month supply. 31 G x 8 mm " use as diecte Unchanged ezetimibe (Zetia 10 [...] by mouth Once a day Unchanged multivitamin (Potter Caps) 1 cap by mouth Once a [...] due to different causes. These include gastroenteritis ("stomach flu"), food poisoning and gastritis. There are other [...] and water are not available, use alcohol-based plow and boring machine tender to keep from spreading the infection to [...] Yellow color of the eyes or skin [phone] [employer]. [address] [place] [address]. All rights reserved. This information is not intended as a substitute for professional medical care. Always follow yourhealthcare professional's instructions. Additional Information VACCINATE! IT SAVES LIVES! Members of the community who have not yet received the COVID-19 vaccine and would like to receive it can visit one of [facility] vaccine clinics. There are many vaccine clinic locations within the [facility]. For locations and available times, please visit [email or web address] It is important to note that some COVID mobile vaccine clinics are held outdoors and may be canceled in rainy or stormy conditions. To learn more about pediatric vaccinations (ages 5-11), we invite you to visit the [facility] webpage. [email or web address] learn more about the COVID-19 vaccine, we invite you to visit the CDC website for a list of frequently asked questions. https://www.cdc.gov/coronavirus/2019-ncov/vaccines/faq.html [facility] Patient Portal Access Instructions: Stay connected with your healthcare team and access your personal medical information anytime with the [facility] Patient Portal. If you would like a full copy of your medical records please contact the [facility] Medical Records Department Thursday through Thursday between 8a.m. and 4:30p.m. Please follow the directions below to access the portal: 1.Access the email account you provided upon registration to the [facility].2.Look for an invitation email from [facility].3.Open the email and access the invitation link: Accept Invitation to [facility]4.Fill in the required gilmore to create your account. Sign into [email or web address] with your username and password that you [...] you will allow to register on the [facility] [employer] Patient Portal for access to your information. You can also access the [facility] [employer] Patient Portal on the [employer]. Simply click on "Health Records" under "HealthData" and then click on the [facility] logo. [...] Call your local pharmacy or go to [email or web address] to find one close to you.3.Make use of household items: Use cat litter or old coffee grounds to dispose medications if other options arenot available. Mix your drugs with these household products, seal them in an airtight container andthrow it into the garbage. Call [facility]: [phone] to be sure your drugs can be [...] am aware that I should contactmy doctor. 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 (Verified) [id number] ORIGINAL EXAMINATION: ONE XRAY VIEW OF THE [...] 07/31/2024 4:10:24 AM Ordering Provider: TORRI MCCLAIN [facility]05-04-2025 Note* Exam Date Time Procedure Performing Provider Status 07/31/24 3:24 AM EKG [ED AOH] - CV TORRI MCCLAIN DO; Aut h (Verified) ECG Final Report Sinus or ectopic atrial rhythm Prolonged FL interval Left bundle branch block Electronic Signature: TORRI MCCLAIN DO 07/31/2024 04:12:26 [facility]05-03-2025 Hospital Discharge instructions Patient Education 07/30/2024 [...] loosen secretions in the nose and lungs. Nkxy-nvd-vrpxdtf cold medicines will not shorten the length of time you re sick, but they may be helpful for the following symptoms: cough, sore throat, and nasal and sinus congestion. If you take prescription medicines, ask your healthcare provider or pharmacist which blwg-ghq-ulozxle medicines are safe to use. (Note: Don't [...] it goes along with a muffled voice [phone] [employer]. [address] [place] [address]. All rights reserved. This information is not intended as a substitute for professional medical care. Always follow yourhealthcare professional's instructions. Follow Up Care 07/30/2024 14:01:26 With:DENISSE SUTTON APRN[facility] Address: [address] [facility] [place] [address] [phone] When:2-4 days [facility] 05-03-2025 Emergency department Discharge summary Discharge Instructions Thank you for allowing [facility] [...] Up with DENISSE SUTTON When:Within 2-4 days Where:[address] [facility] [place] [address]- [phone] Allergies NKA Medications Please ask your primary [...] month supply. 31 G x 8 mm " use as diecte Unchanged ezetimibe (Zetia 10 [...] loosen secretions in the nose and lungs. Jxgm-wxv-tjugxxy cold medicines will not shorten the length of time you re sick, but they may be helpful for the following symptoms: cough, sore throat, and nasal and sinus congestion. If you take prescription medicines, ask your healthcare provider or pharmacist which jrxb-upr-seqqqzc medicines are safe to use. (Note: Don't [...] it goes along with a muffled voice [phone] [employer]. [address] [place] [address]. All rights reserved. This information is not intended as a substitute for professional medical care. Always follow yourhealthcare professional's instructions. Additional Information VACCINATE! IT SAVES LIVES! Members of the community who have not yet received the COVID-19 vaccine and would like to receive it can visit one of [facility] vaccine clinics. There are many vaccine clinic locations within the [facility]. For locations and available times, please visit [email or web address] It is important to note that some COVID mobile vaccine clinics are held outdoors and may be canceled in rainy or stormy conditions. To learn more about pediatric vaccinations (ages 5-11), we invite you to visit the [facility] webpage. https://www.[facility].org/pages/5616-Wfmtm-Vxqkyifeoyd-Kvguywxsqh-Qpgza-Sof stions.htmlTo learn more about the COVID-19 vaccine, we invite you to visit the CDC website for a list of frequently asked questions. https://www.cdc.gov/coronavirus/2019-ncov/vaccines/faq.html [facility] Access Instructions: Stay connected with your healthcare team and access your personal medical information anytime with the [facility] Patient Portal. If you would like a full copy of your medical records please contact the [facility] Medical Records Department Thursday through Thursday between 8a.m. and 4:30p.m. Please follow the directions below to access the portal: 1.Access the email account you provided upon registration to the [facility].2.Look for an invitation email from [facility].3.Open the email and access the invitation link: Accept Invitation to [employer]4.Fill in the required gilmore to create your account. Sign into www.Day [employer] Project with your username and password that you [...] you will allow to register on the [employer] Patient Portal for access to your information. You can also access the [employer] Patient Portal on the M[employer]ix. Simply click on "Health Records" under "M/A-COM" and then click on the [facility] logo. HOW TO SAFELY DISPOSE OF PRESCRIPTION [...] Call your local pharmacy or go to http://[email or web address]/[email or web address] to find one close to you.3.Make use of household items: Use cat litter or old coffee grounds to dispose medications if other options arenot available. Mix your drugs with these household products, seal them in an airtight container andthrow it into the garbage. Call [facility]: [phone] to be sure your drugs can be [...] am aware that I should contactmy doctor. 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 MICRO - Microbiology PROCEDURE: [...] Locations *1: This test was performed at: [address], [address] [place], [place] [address]11-23-2023 Note. MICRO - Microbiology PROCEDURE: Blood Culture [...] Locations *1: This test was performed at: [address], [address] [place], [place] [address]11-21-2023 [facility]08-21-2024 Note ORIGINAL EXAMINATION: TWO XRAY VIEWS [...] Date: 11/18/2023 12:03:57 PM [facility] NoteSinus rhythm Prolonged FL interval Anterior infarct, old Electronic Signature: EVELINA CURTIS MD 11/18/2023 10:40:21[facility] 07-15-2024 Hospital Discharge instructions Patient Education [...] worsens and is not improved with elevation. 7924-4919 The [employer]. [address] [place] [address], [place] [address]. All rights reserved. This information is not intended as a substitute for professional medical care. Always follow yourhealthcare professional's instructions. Follow Up Care 10/11/2023 21:12:26 With:DENISSE SUTTON Address: [place] [address]- [phone] When:2-4 days [facility] 07-14-2024 Note Discharge Instructions Thank you for allowing [facility] to assist you with your healthcare needs. The following is importantdischarge information regarding your hospital visit. What to Do Next Instructions from Your Care Team No qualifying data available. Post Acute Orders No qualifying data available. You Need to Schedule the Following Appointments Follow Up with DENISSE SUTTON When:Within 2-4 days Where:[place] [address] [phone] Allergies NKA Medications Please ask your primary [...] of PCP. 31 G x 8 mm " use as diected Unchanged ezetimibe (Zetia 10 [...] worsens and is not improved with elevation. 2526-6082 [employer]. [address] [place] [address]. All rights reserved. This information is not intended as a substitute for professional medical care. Always follow yourhealthcare professional's instructions. Additional Information VACCINATE! IT SAVES LIVES! Members of the community who have not yet received the COVID-19 vaccine and would like to receive it can visit one of [facility] vaccine clinics. There are many vaccine clinic locations within the [facility]. For locations and available times, please visit www.gettheshot.coronavirus.[place].gov/. It is important to note that some COVID mobile vaccine clinics are held outdoors and may be canceled in rainy or stormy conditions. To learn more about pediatric vaccinations (ages 5-11), we invite you to visit the [facility] webpage. https://www.[facility].org/pages/3939-Lxycq-Ddfbjugxspt-Murmxisctb-Hgtib-Gvu stions.htmlTo learn more about the COVID-19 vaccine, we invite you to visit the CDC website for a list of frequently asked questions. https://www.cdc.gov/coronavirus/2019-ncov/vaccines/faq.html [facility] [employer] Patient Portal Access Instructions: Stay connected with your healthcare team and access your personal medical information anytime with the [facility] Patient Portal. If you would like a full copy of your medical records please contact the [facility] Medical Records Department Thursday through Thursday between 8a.m. and 4:30p.m. Please follow the directions below to access the portal: 1.Access the email account you provided upon registration to the [facility].2.Look for an invitation email from [facility].3.Open the email and access the invitation link: Accept Invitation to [facility]4.Fill in the required gilmore to create your account. Sign into www.Day [employer] Project with your username and password that you [...] you will allow to register on the [facility] Patient Portal for access to your information. You can also access the [facility] Patient Portal on the M[employer]. Simply click on "Health Records" under "HealthData" and then click on the [facility] logo. HOW TO SAFELY DISPOSE OF PRESCRIPTION [...] Call your local pharmacy or go to http://bit.ly/6Y3Vd3v to find one close to you.3.Make use of household items: Use cat litter or old coffee grounds to dispose medications if other options arenot available. Mix your drugs with these household products, seal them in an airtight container andthrow it into the garbage. Call [facility]: [phone] to be sure your drugs can be [...] am aware that I should contactmy doctor. 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 Signature: Date/Time: Relationship to Patient: Witness Name/Signature: Date/Time: [facility]07-14-2024 Note ORIGINAL EXAMINATION: TWO XRAY VIEWS [...] by: Danis Hamilton Preliminary Report By: Danis Hmailton Electronically signed By Danis Hamilton Dictated Date: 10/11/2023 10:07:24 PM Prelim Date: 10/11/2023 10:11:25 PM Sign Date: 10/11/2023 10:11:25 PM Ordering Provider: FREDDIE [facility]06-11-2024 Miscellaneous Notes* Sedation Documentation - Sanjuanita Bustillos RN - 09/08/2023 10:36 AM EDT Patient given discharge instructions and discharged home with sister. * Sedation Documentation - Sanjuanita Bustillos RN - 09/08/2023 10:33 AM EDT Pressure held by Max Pugh, no bleeding noted, DSD applied. * Sedation Documentation - Sanjuanita Bustillos RN - 09/08/2023 10:27 AM EDT Catheter removed intact [facility] Nurse procedure note* Sedation Documentation - Sanjuanita Bustillos RN - 09/08/2023 10:36 AM EDT Patient given discharge instructions and discharged home with sister. [facility] Nurse procedure note* Sedation Documentation - Sanjuanita Bustillos RN - 09/08/2023 10:33 AM EDT Pressure held by Max Pugh, no bleeding noted, DSD applied. [facility] Surgery Surgical operation note* Brief Op Note - Jeremy Aguirre MD, - 09/08/2023 10:32 AM EDT BRIEF OPERATIVE / PROCEDURE NOTE LOG ID: [id number] SURGERY/PROCEDURE DATE: 09/08/2023 INCISION/PROCEDURE START TIME: 10:26 AM INCISION CLOSE/PROCEDURE END TIME: SURGEON(S)/PROCEDURALIST(S) AND DIMENSION MILL WORKER(S): Surgeon(s) and Role: * Jeremy Aguirre MD, MD - Primary No Additional Staff SURGERY/PROCEDURE(S): Removal of tunneled dialysis catheter ANESTHESIA: Local FINDINGS: Successful removal ESTIMATED BLOOD LOSS: Minimal SPECIMENS: None COMPLICATIONS: None CLOSURE TECHNIQUE: Primary PRE-OP/PRE-PROCEDURE DIAGNOSIS: Renal failure POST-OP/POST-PROCEDURE DIAGNOSIS: Same as Preop SIGNATURE: Jeremy Aguirre MD PATIENT NAME: Zayda Davis DATE: September 08, 2023 TIME: 10:32 AM [facility] Work Phone: 1(974) 838-949806-11-2024 Surgical operation note* Brief Op Note - Jeremy Aguirre MD, - 09/08/2023 10:32 AM EDT BRIEF OPERATIVE / PROCEDURE NOTE LOG ID: [id number] SURGERY/PROCEDURE DATE: 09/08/2023 INCISION/PROCEDURE START TIME: 10:26 AM INCISION CLOSE/PROCEDURE END TIME: SURGEON(S)/PROCEDURALIST(S) AND DIMENSION MILL WORKER(S): Surgeon(s) and Role: * Jeremy Aguirre MD, MD - Primary No Additional Staff SURGERY/PROCEDURE(S): Removal of tunneled dialysis catheter ANESTHESIA: Local FINDINGS: Successful removal ESTIMATED BLOOD LOSS: Minimal SPECIMENS: None COMPLICATIONS: None CLOSURE TECHNIQUE: Primary PRE-OP/PRE-PROCEDURE DIAGNOSIS: Renal failure POST-OP/POST-PROCEDURE DIAGNOSIS: Same as Preop SIGNATURE: Jeremy Aguirre MD PATIENT NAME: Zayda Davis DATE: September 08, 2023 TIME: 10:32 AM [facility] in [facility] Nurse procedure note* Sedation Documentation - Sanjuanita Bustillos RN - 09/08/2023 10:27 AM EDT Catheter removed intact [facility] Note* Exam Date Time Procedure Performing Provider Status 05/26/23 2:17 PM Echocardiogram, Adult - CV Auth (Verified) [facility] 01-29-2024 Discharge summary Author Cipriano Trujillo [facility] April 27, 2023 1:18pm Note Date/Time April 27, 2023 1 2:50pm [facility] Medical Records Department [address] [place] [address] Instructions for Home/Discharge Instructions 04/27/23 1249 MR#: [id number] Acct: [id number] Name: ZAYDA DAVIS Rep #:[id number] : 1965 57 From: Cipriano Trujillo MD PCP: TERESA Mas Status:REG S DC Discharge Instructions Diet Discharge [...] Cipriano Trujillo Primary Care Provider: Denisse Sutton INSPECTOR SALVAGE Discharge Orders/Prescriptions Prescriptions: New oxycodone 5 mg [...] (2,000 unit) capsule 50 mcg PO DAILY Potter Caps 1 mg capsule 1 cap PO DAILY Nephro-Todd 0.8 mg tablet 1 tab PO DAILY hydralazine 100 mg tablet 100 mg PO TID ranolazine 500 mg tablet extended release 12 hr 500 mg PO DAILY ezetimibe 10 mg tablet 10 mg PO QHS famotidine [Acid Controller] 10 mg tablet 20 mg PO DAILY Referrals / Follow Up: Denisse Sutton NP, INSPECTOR SALVAGE-C [Primary Care Provider] - Disposition Disposition (needs filled in before D/C Order can be placed): Home, Self Care 04/27/23 1318<Electronically signed by Cipriano Trujillo MD>Cipriano Trujillo MD CC: OLGA LIDIA-C Denisse Sutton ~ Signed [facility] Work Phone: 1(828) 254-618801-29-2024 Procedure [facility] 04-27-2023 History and physical note Author Cipraino Trujillo [facility] April 27, 2023 10:44am Note Date/Time April 27, 2023 1 0:45am [facility] Medical Records Department [address] [place] [address] History & Physical Exam 04/27/23 1044 MR#: [id number] Acct: [id number] Name: ZAYDA DAVIS Rep #:[id number] : 1965 57 From: Cipriano Trujillo MD PCP: TERESA Mas Status:REG S SD Location: [place] [address] History and Physical Allergies No Known Allergies [...] failure Anxiety Atherosclerosis of coronary artery of [place] heart without angina pectoris Bilateral carotid bruits [...] nourished Orientation: alert, awake and oriented x3 [facility] Head: normocephalic and atraumatic Ears: hearing [...] TERESA Sutton; Dr. Cipriano Trujillo MD~ Signed [facility] Work Phone: 1(699) 275-596810-26-2023 History and physical note Author Cipriano Trujillo [facility] January 22, 2023 10:07am Note Date/Time January 22, 2023 7 :46am [facility] Medical Records Department [address] [place] [address] History & Physical Exam 01/22/23 0733 MR#: [id number] Acct: [id number] Name: ZAYDA DAVIS Rep #:[id number] : 1965 57 From: Roya LUKE PCP: TERESA Mas Status:REG S DC Location: [facility] HPI - General HPI Narrative ZAYDA DAVIS, [...] other than itchingfrom the poison sekou today. [facility] Medical History Acute alteration in mental status Acute renal injury due to circulatory failure Anxiety Atherosclerosis of coronary artery of [place] heart without angina pectoris Bilateral carotid bruits [...] vitamin C no.20-folic acid 1 mg capsule (Potter Caps) 1 cap PO DAILY 01/13/23 [History [...] MARLY Shirley; Dr. Cipriano Trujillo MD~ Signed [facility] Work Phone: 1(394) 546-980010-26-2023 Procedure [facility] 11-18-2022 Hospital Discharge instructions Patient Education 11/18/2022 14:37:23 1-[facility] Discharge Instructions Template (12/2017) KELSEY SAME DAY [...] us better serve our patients. Form: 1522 (98690) R: 07/06 Follow Up Care 11/12/2022 13:59:37 With:LEE CASH MD Address: [address] [place] [address] [facility] [place] [address]- When: Unknown Comments:Follow-up with Dr. Cash [facility] 08-22-2023 Evaluation + Plan noteExtracted from: [...] 10/28/2022 and can be found in the [facility] Electronic Medical Records (FittingRoom). Sloane Mak PA-C Interventional Radiology Pager: [phone] IR dept: x [phone] Available on [facility] Future Appointments Appointment Date:12/30/2022 03:00:00 PM Scheduled Provider:DENISSE SUTTON Location:[facility] Appointment Type:PC Wellness Medicare Appointment Date:01/09/2023 03:30:00 PM Scheduled Provider: Location:[facility] Appointment Type:DB Diabetic Individual Visit (AOH) Future Scheduled Tests Laboratory* Lipid Profile 05/28/22 * Vitamin D Level 05/28/22 * Complete Metabolic Panel 05/28/22 [facility] 08-22-2023 Note* Inez Chaney Tech: SIGN, AUTHOR, PERFORM, SIGN, AUTHOR Event Display: IR Procedure Record Authored Date: [id number] IR Procedure Record Summary Primary Physician: STEVIE WEST MD Finalized Date/Time: 11/18/22 11:03:48 Pt. Name: ZAYDA DAVIS D.O.B./Sex: 1965 Female Med Rec #: [id number] Physician: Financial #: [id number] Pt. Type: S Room/Bed: [facility]/A Admit/Disch: 11/18/22 07:52:44 - Institution: Allergies identified in patient's electronic medical record at time of printing on 11/18/22 Entry 1 Substance NKA Reaction Type Allergy Last Modified By: SAPNA Bowles 07/16/18 17:33:02 Case Attendance- IR Entry 1 Entry 2 Entry 3 Case Attendee STEVIE WEST MD, Colten G Hershberger, Terra L Scallop Binder Role Performed Primary Surgeon Scrub Technologist Circulating Technologist Details Time In 11/18/22 10:17:00 11/18/22 10:17:00 11/18/22 10:17:00 Time Out 11/18/22 11:08:00 11/18/22 11:08:00 11/18/22 11:08:00 Procedure/Preference IR Arteriogram AV Shunt IR Arteriogram AV Shunt IR Arteriogram AV Shunt Card Fistulogram SN Fistulogram SN Fistulogram SN Last Modified By: Inez Chaney Terra L Hershberger, Terra L Scallop Binder 11/18/22 Scallop Binder 11/18/22 Scallop Binder 11/18/22 11:00:01 11:00:01 11:00:01 Entry 4 Case Attendee Emma Peng RN Role Performed Procedure Nurse Details Time In 11/18/22 10:17:00 Time Out 11/18/22 11:08:00 Procedure/Preference IR Arteriogram AV Shunt Card Fistulogram SN Last Modified By: Inez Chaney Scallop Binder 11/18/22 11:00:01 Radiology Procedures- IR Entry 1 [...] time clot Last Modified By: Inez Chaney Scallop Binder 11/18/22 11:03:47 General Case Data - IR [...] 11/18/22 10:47:00 Last Modified By: Inez Chaney Scallop Binder 11/18/22 11:00:00 Immediate Post Procedure Note - [...] images and Inez Chaney results are properly Scallop Binder, alejo Peng and Emma Jordan RN appropriately displayed, Alcohol [...] Radiology - Action Plan Outcomes Met? Yes Apartment Maintenance Worker Emma Peng RN Completing Procedure Plan Last Modified By: Emma Peng RN 11/18/22 10:40:22 Case Comments <None> Finalized By: Inez Chaney Document Signatures Signed By: Inez Chaney 11/18/22 11:00 Inez Chaney 11/18/22 11:03 [facility] 08-22-2023 Note IR Procedure Record Summary Primary Physician: STEVIE WEST MD Finalized Date/Time: 11/18/22 11:03:48 Pt. Name: ZAYDA DAVIS/Sex: 1965 Female Med Rec #: [id number] Physician: Financial #: [id number] Pt. Type: S Room/Bed: [facility]/A Admit/Disch: 11/18/22 07:52:44 - Institution: Allergies identified in patient's electronic medical record at time of printing on 11/18/22 Entry 1 Substance NKA Reaction Type Allergy Last Modified By: SAPNA Bowles 07/16/18 17:33:02 Case Attendance- IR Entry 1 Entry 2 Entry 3 Case Attendee STEVIE WEST MD, Colten G Hershberger, Terra L Scallop Binder Role Performed Primary Surgeon Scrub Technologist Circulating Technologist Details Time In 11/18/22 10:17:00 11/18/22 10:17:00 11/18/22 10:17:00 Time Out 11/18/22 11:08:00 11/18/22 11:08:00 11/18/22 11:08:00 Procedure/Preference IR Arteriogram AV Shunt IR Arteriogram AV Shunt IR Arteriogram AV Shunt Card Fistulogram SN Fistulogram SN Fistulogram SN Last Modified By: Inez Chaney Terra L Hershberger, Terra L Scallop Binder 11/18/22 Scallop Binder 11/18/22 Scallop Binder 11/18/22 11:00:01 11:00:01 11:00:01 Entry 4 Case Attendee Emma Peng RN Role Performed Procedure Nurse Details Time In 11/18/22 10:17:00 Time Out 11/18/22 11:08:00 Procedure/Preference IR Arteriogram AV Shunt Card Fistulogram SN Last Modified By: Inez Chaney Scallop Binder 11/18/22 11:00:01 Radiology Procedures- IR Entry 1 [...] time clot Last Modified By: Inez Chaney [employer] 11/18/22 11:03:47 General Case Data - IR [...] 11/18/22 10:47:00 Last Modified By: Inez Chaney [employer] 11/18/22 11:00:00 Immediate Post Procedure Note - [...] images and Inez Chaney results are properly Scallop Binder, Danish, labeled and Emma Jordan RN appropriately [...] Radiology - Action Plan Outcomes Met? Yes Apartment Maintenance Worker Emma Peng RN Completing Procedure Plan Last Modified By: Emma Peng RN 11/18/22 10:40:22 Case Comments Finalized By: Inez Chaney Scallop Binder Document Signatures Signed By: Inez Chaney Scallop Binder 11/18/22 11:00 Inez Chaney Scallop Binder 11/18/22 11:03 [id number] History and physical note IR PREPROCEDURE H&P [...] 10/28/2022 and can be found in the [facility] Electronic Medical Records ([facility]). Sloane Mak PA-C Interventional Radiology Pager: [phone] IR dept: x [phone] Available on [employer] Digitally Signed by SLOANE MAK PA-C on 11/18/2022 09:28 AM Digitally Signed by STEVIE WEST MD on 11/18/2022 10:06 AM [facility] [id number] Hospital Discharge instructions Patient Education 11/10/2022 23:17:41 [...] injured hand Frequent bruising for unknown reasons [employer]. [address] [place] [address]. All rights reserved. This information is not [...] or eye Frequent bruising for unknown reasons [employer]. [address] [place] [address]. All rights reserved. This information is not intended as a substitute for professional medical care. Always follow yourhealthcare professional's instructions. Follow Up Care 11/10/2022 22:28:34 With:DENISSE SUTTON Address: [place] [phone] When:2-4 days [facility] 08-14-2023 Note Discharge Instructions Thank you for allowing [facility] to assist you with your healthcare needs. [...] When Within 2-4 days Where: [place] [address]- [phone] Allergies NKA Medications Please ask your primary [...] injured hand Frequent bruising for unknown reasons [employer]. [address] [place] [address]. All rights reserved. This information is not [...] or eye Frequent bruising for unknown reasons [employer]. [address] [place] [address]. All rights reserved. This information is not intended as a substitute for professional medical care. Always follow yourhealthcare professional's instructions. Additional Information VACCINATE! IT SAVES LIVES! Members of the community who have not yet received the COVID-19 vaccine and would like to receive it can visit one of [facility] vaccine clinics. There are many vaccine clinic locations within the [facility]. For locations and available times, please visit www.gettheshot.coronavirus.[place].gov/. It is important to note that some COVID mobile vaccine clinics are held outdoors and may be canceled in rainy or stormy conditions. To learn more about pediatric vaccinations (ages 5-11), we invite you to visit the [facility] webpage. https://www.[facility].org/pages/0495-Cdwnj-Rhglcggquqm-Uwniuttnyg-Dihfw-Uio stions.htmlTo learn more about the COVID-19 vaccine, we invite you to visit the CDC website for a list of frequently asked questions. https://www.cdc.gov/coronavirus/2019-ncov/vaccines/faq.html [facility] [employer] Patient Portal Access Instructions: Stay connected with your healthcare team and access your personal medical information anytime with the [facility] Patient Portal. If you would like a full copy of your medical records please contact the [facility] Medical Records Department Thursday through Thursday between 8a.m. and 4:30p.m. Please follow the directions below to access the portal: 1.Access the email account you provided upon registration to the hospital.2.Look for an invitation email from [facility].3.Open the email and access the invitation link: Accept Invitation to [facility].Fill in the required gilmore to create your account. Sign into www.[employer] with your username and password that you [...] you will allow to register on the [facility] Patient Portal for access to your information. You can also access the [facility] Patient Portal on the [employer]. Simply click on "Health Records" under "HealthData" and then click on the [employer] logo. [...] Call your local pharmacy or go to http://onefinestay.[email or web address]/[email or web address] to find one close to you.3.Make use of household items: Use cat litter or old coffee grounds to dispose medications if other options arenot available. Mix your drugs with these household products, seal them in an airtight container andthrow it into the garbage. Call [facility]: [phone] to be sure your drugs can be [...] am aware that I should contactmy doctor. 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 Signature: Date/Time: Relationship to Patient: Witness Name/Signature: Date/Time: [facility]08-14-2023 Note ORIGINAL EXAMINATION: THREE XRAY VIEWS [...] Sign Date: 11/10/2022 11:08:59 PM Ordering Provider: CALDERON [facility]08-14-2023 Note ORIGINAL EXAMINATION: THREE XRAY VIEWS OF [...] Sign Date: 11/10/2022 11:08:59 PM Ordering Provider: [facility]07-28-2023 Hospital Discharge instructions Patient Education 10/24/2022 16:24:52 [...] Follow these instructions at home: Medicines Take obti-dpi-elojybz and prescription medicines only as told by [...] and water are not available, use hand plow and boring machine tender. Keep all follow-up visits as told by [...] 02/16/2007 Document Revised: 06/11/2018 Document Reviewed: 04/10/2017 [employer] Patient Education 2020 [employer] [employer] Follow Up Care 10/23/2022 14:43:03 With:Go to emergency room if symptoms worsen Address:Unknown When:1-2 days With:DENISSE SUTTON 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 Address: [address] [place] [address] [place] [address] [phone] When:1-2 days [facility] 07-28-2023 Note Discharge Instructions Thank you [...] Appointments Appointment Type [facility] With [facility]-Up 10/28/2022 03:00 PM EDT DENISSE SUTTON [facility] db Diabetic Individual Visit (AOH) 01/09/2023 03:30 PM EDT [facility] Diet Visits [phone] Follow Up Appointments Follow Up with Go to emergency room if symptoms worsen When Within 1-2 days Follow Up with DENISSE SUTTON When Within 1-2 days Where: [address] [facility] [place] [address] [phone] The Following Activity and Diet Have Been [...] Follow these instructions at home: Medicines Take mgty-hrf-fbsxihf and prescription medicines only as told by [...] and water are not available, use hand plow and boring machine tender. Keep all follow-up visits as told by [...] 02/16/2007 Document Revised: 06/11/2018 Document Reviewed: 04/10/2017 [employer] Patient Education 2020 [employer] Additional Information VACCINATE! IT SAVES LIVES! Members of the community who have not yet received the COVID-19 vaccine and would like to receive it can visit one of [facility] vaccine clinics. There are many vaccine clinic locations within the [facility]. For locations and available times, please visit https://[email or web address]/. It is important to note that some COVID mobile vaccine clinics are held outdoors and may be canceled in rainy or stormy conditions. To learn more about pediatric vaccinations (ages 5-11), we invite you to visit the [facility] webpage. https://www.[facility].org/pages/4048-Ulhco-Iwmujsnueso-Nzqtrbxopt-Zlnvx-Upq stions.htmlTo learn more about the COVID-19 vaccine, we invite you to visit the CDC website for a list of frequently asked questions.https://www.cdc.gov/coronavirus/2019-ncov/vaccines/faq.html [facility] [employer] Patient Portal Access Instructions: Stay connected with your healthcare team and access your personal medical information anytime with the [facility] Patient Portal. Please follow the directions below to create your [facility] account: 1.Access the email account you provided upon registration to the hospital/physician office.2.Look for an invitation email from [facility].3.Open the email and access the invitation link: AcceptInvitation to [facility].4.Fill in the required gilmore to create your account. To access your account, visit [employer] System[employer]. Click the blue button labeled "Access Patient Portal" and then log in with the username and password that you created in the steps above. You will be able to view your test results, lab results, a summary of your visits, upcoming appointments and more. There is also a convenient messaging option where you can send secure messages to your p [employer]. In addition, you will have the ability to download any documents or summaries to your computer and/or send the information securely to a physician. Remember that your healthcare information is confidential, so carefully consider who you will allowto register on the [facility] [employer] Patient Portal for access to your information. You can also access the [facility] Patient Portal on the [facility] toby. Simply click on "Patient Portal" and then log into your account. If you would like to receive a full copy of your medical records, please contact the [facility] Medical Records Department by calling [phone], Thursday through Thursday between 8 a.m. and [...] Call your local pharmacy or go to http://bit.C2cube/3T8Cb8a to find one close to you.3.Make use of household items: Use cat litter or old coffee grounds to dispose medications if other options arenot available. Mix your drugs with these household products, seal them in an airtight container andthrow it into the garbage. Call [facility]: [phone] to be sure your drugs can be [...] am aware that I should contactmy doctor. 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 Sawant - regarding this issue. 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 Patient presented to [facility] emergency department on 10/24/2022 for evaluation of AV fistula thrombosis. Patient was just discharged from [facility] on 10/21/2022 for the same. 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 Patient presented to [facility] emergency department on 10/24/2022 for evaluation of AV fistula thrombosis. Patient was just discharged from [facility] on 10/21/2022 for the same. She had [...] by CATHERINE RENTERIA on 10/24/2022 02:59 PM [facility] [id number] Evaluation + Plan noteExtracted from: Title:History and [...] Appointment Date:10/28/2022 03:00:00 PM Scheduled Provider:DENISSE SUTTON Location:[facility] Appointment Type:[facility] Follow-Up Appointment Date:01/09/2023 03:30:00 PM Scheduled Provider: Location:[facility] Appointment Type: Diabetic Individual Visit (AOH) Future Scheduled Tests Laboratory* Lipid Profile 05/28/22 * Vitamin D Level 05/28/22 * Complete Metabolic Panel 05/28/22 [facility] 07-28-2023 Note Date of Service 10/24/2022 Chief Complaint AV fistula thrombosis Subjective 56-year-old female with past medical history significant for anemia, anxiety, CAD, HF PEF, ESRD on HD, type 2 diabetes mellitus, HLD, HTN. Patient presented to [facility] emergency department on 10/24/2022 for evaluation of AV fistula thrombosis. Patient was just discharged from [facility] on 10/21/2022 for the same. She had [...] by CATHERINE RENTERIA on 10/24/2022 01:30 PM [facility] [id number] Palliative care Progress note Palliative care consulted [...] RADHA BARAJAS MD on 10/24/2022 01:03 PM [facility] HospitalXxwddyfr37-42-1215 History and physical note Date of Service [...] oriented x3, no acute distress. She reports "I hear everything you are saying". Denies any acute symptoms. Declines to participate in interview. Abd: Not distended HEENT: NCAT, sclera anicteric, oral mucosa moist Pulmonary: No tachypnea or use of accessory respiratory muscles. MSK: No gross deformities Cardiovascular: Not tachycardic Skin: Warm and dry Neuro: Spontaneous movement of all extremities, cranial nerves II through XII grossly normal Psychiatric: Thought content, associations, attention are all normal. Lab Results 10/23 pH: 7.407 (10/19/22 10:42:00) pCO2: 35.2 mm [...] 16.15 (10/23/22 16:21:00) Neutrophil %: 72.9 % (07/27/23 16:21:00) Lymphocyte %: 9.5 % Low (10/23/22 [...] 1.486 mIU/mL (10/19/22 10:56:00) Lab Performed By: aMrie Quiroz PharmD (10/10/22 16:23:00) Lab Performing Location: [facility] (10/10/22 16:23:00) Hgb A1c (AMB POC): 5.7 [...] TOÑITO COVINGTON MD on 10/24/2022 01:50 AM [facility] [id number] Hospital Discharge instructions Patient Education 08/29/2022 01:18:02 Vomiting (Adult) Vomiting (Adult) Vomiting is a common symptom that may be due to different causes. These include gastroenteritis ("stomach flu"), food poisoning and gastritis. There are other [...] and water are not available, use alcohol-based plow and boring machine tender to keep from spreading the infection to [...] Yellow color of the eyes or skin [phone] [employer] [place] [address]. All rights reserved. This information is not intended as a substitute for professional medical care. Always follow yourhealthcare professional's instructions. Follow Up Care 08/28/2022 23:29:36 With:DENISSE SUTTON Address: [place] [address]- [phone] When:2-4 days [facility] 06-02-2023 Note Discharge Instructions Thank you for allowing [facility] to assist you with your healthcare needs. The following is importantdischarge information regarding your hospital visit. Diagnosis from Today's Visit Vomiting What to Do Next Instructions from Your Care Team No qualifying data available. Post Acute Orders No qualifying data available. You Need to Schedule the Following Appointments Follow Up with DENISSE SUTTON When Within 2-4 days Where: [place] [address]- [phone] Allergies NKA Medications Please ask your primary [...] may report side effects to FDA at 1-197-MGL-4966. What other drugs will affect ondansetron? Ondansetron [...] interact with ondansetron. This includes prescription and icbf-ntf-tccdowo medicines, vitamins, and herbal products. Give a [...] to ensure that the information provided by [employer]. ('[employer]') is accurate, up-to-date, and complete, but no guarantee is made to that effect. Drug information contained herein may be time sensitive. [employer] information has been compiled for use by healthcare practitioners and consumers in the [place] and therefore [employer] does not warrant that uses outside of the [place] are appropriate, unless specifically indicated otherwise. [employer] drug information does not endorse drugs, diagnose patients or recommend therapy. [employer] drug information isan informational resource designed to [...] effective or appropriate for any given patient. [employer] does not assume any responsibility for any aspect of healthcare administered with the aid of information [employer] provides. The information contained herein is not intended to cover all possible uses, directions, precautions, warnings, drug interactions, allergic reactions, or adverse effects. If you have questions about the drugs you are taking, check with your doctor, nurse or pharmacist. Copyright 5635-0106 [employer]. Version: 13.01. Revision Date: 01/18/2016. ondansetron (oral) [...] To use ondansetron oral soluble film (strip) (Gustabo): Keep the strip in the foil pouch [...] may report side effects to FDA at 1-680-CVE-3033. What other drugs will affect ondansetron? Ondansetron [...] interact with ondansetron. This includes prescription and cxze-xzd-ohxkbwu medicines, vitamins, and herbal products. Give a [...] to ensure that the information provided by [employer]') is accurate, up-to-date, and complete, but no guarantee is made to that effect. Drug information contained herein may be time sensitive. [employer] information has been compiled for use by healthcare practitioners and consumers in the [place] and therefore [employer] does not warrant that uses outside of the [place] are appropriate, unless specifically indicated otherwise. [employer]s drug information does not endorse drugs, diagnose patients or recommend therapy. [employer] drug information isan informational resource designed to [...] effective or appropriate for any given patient. [employer] does not assume any responsibility for any aspect of healthcare administered with the aid of information [employer] provides. The information contained herein is not intended to cover all possible uses, directions, precautions, warnings, drug interactions, allergic reactions, or adverse effects. If you have questions about the drugs you are taking, check with your doctor, nurse or pharmacist. Copyright 1877-7404 [employer]. Version: 13.01. Revision Date: 01/18/2016. Education Materials Vomiting (Adult) Vomiting is a common symptom that may be due to different causes. These include gastroenteritis ("stomach flu"), food poisoning and gastritis. There are other [...] and water are not available, use alcohol-based plow and boring machine tender to keep from spreading the infection to [...] Yellow color of the eyes or skin [phone] [employer]. [address] [place] [address]. All rights reserved. This information is not intended as a substitute for professional medical care. Always follow yourhealthcare professional's instructions. Additional Information VACCINATE! IT SAVES LIVES! Members of the community who have not yet received the COVID-19 vaccine and would like to receive it can visit one of [facility] vaccine clinics. There are many vaccine clinic locations within the [facility]. For locations and available times, please visit www.gettheshot.coronavirus.[place].gov/. It is important to note that some COVID mobile vaccine clinics are held outdoors and may be canceled in rainy or stormy conditions. To learn more about pediatric vaccinations (ages 5-11), we invite you to visit the [facility] webpage. https://www.[facility].org/pages/1979-Noiya-Kwbnwamcutk-Hsaojcwkhi-Aatwz-Hoq stions.htmlTo learn more about the COVID-19 vaccine, we invite you to visit the CDC website for a list of frequently asked questions. https://www.cdc.gov/coronavirus/2019-ncov/vaccines/faq.html [facility] [employer] Patient Portal Access Instructions: Stay connected with your healthcare team and access your personal medical information anytime with the [facility] Patient Portal. If you would like a full copy of your medical records please contact the [facility] Medical Records Department Thursday through Thursday between 8a.m. and 4:30p.m. Please follow the directions below to access the portal: 1.Access the email account you provided upon registration to the [facility].2.Look for an invitation email from [facility].3.Open the email and access the invitation link: Accept Invitation to [facility]4.Fill in the required gilmore to create your account. Sign into www.[email or web address] with your username and password that you [...] you will allow to register on the [facility] Patient Portal for access to your information. You can also access the [facility] Patient Portal on the [employer]. Simply click on "Health Records" under "HealthData" and then click on the [facility] logo. HOW TO SAFELY DISPOSE OF PRESCRIPTION [...] Call your local pharmacy or go to http://bit.C2cube/4X1It8k to find one close to you.3.Make use of household items: Use cat litter or old coffee grounds to dispose medications if other options arenot available. Mix your drugs with these household products, seal them in an airtight container andthrow it into the garbage. Call [facility]: [phone] to be sure your drugs can be [...] am aware that I should contactmy doctor. 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 Signature: Date/Time: Relationship to Patient: Witness Name/Signature: Date/Time: [facility]06-02-2023 Note ORIGINAL EXAMINATION: CT OF THE [...] 08/29/2022 1:01:48 AM Ordering Provider: FREDDIE BURRIS [facility]06-02-2023 Note ORIGINAL EXAMINATION: CT OF THE [...] Sign Date: 08/29/2022 1:01:48 AM Ordering Provider: [facility]05-15-2023 Discharge summary Date of Service 08/11/22 [...] MARCUS TORRES MD on 08/11/2022 09:02 AM [facility]Ugvxhpiz91-09-3285 Hospital Discharge instructions Patient Education 08/11/2022 12:53:07 [...] until you are awake and alert. Take njxm-klk-ouvldta and prescription medicines only as told by [...] 01/04/2014 Document Revised: 02/26/2018 Document Reviewed: 07/05/2016 [employer] Patient Education 2020 [employer]. 08/11/2022 12:53:04 3- Heart Cath/PCI radial (12/2017) [...] Document Reviewed: 03/17/2014 ExitCare Patient Information 2015 [employer]. This information is not intended to replace advicegiven to you by your health care provider. Make sure you discuss any questions you have with your health care provider. Follow Up Care 07/17/2022 14:41:31 With:NATE CROW MD Address: [address] [place] [address]- [phone] When:09/03/2022 10:30:00 [facility] 05-15-2023 Summary of episode note Discharge Instructions Thank you for allowing [facility] to assist you with your healthcare needs. The following is importantdischarge information regarding your hospital visit. Your Care Team DENISSE SUTTON APRN-NILES What to do next Scheduled Follow-Up Appointments Appointment Type When With Where Contact InformationCV OV 09/03/2022 10:30 AM EDT [facility] OV 09/17/2022 02:30 PM EDT DENISSE SUTTON 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 [facility] [place] [facility] Diabetic Individual Visit (AOH) 10/08/2022 08:30 AM EDT [facility] Diet Visits [phone] Follow Up Appointments Follow Up with NATE CROW MD When 09/03/2022 10:30 AM EDT Where: [address] [place] [address]- [phone] The Following Activity and Diet Have Been [...] Two (2) times a day Pickup at [place] [address] Unchanged allopurinol (allopurinol 100 mg oral tablet) [...] Duration: 90 Days Pharmacy Information [facility] [address]: [address] [place], [place] [phone] Please take this list to your next [...] until you are awake and alert. Take ppyu-ayr-imngvyn and prescription medicines only as told by [...] 01/04/2014 Document Revised: 02/26/2018 Document Reviewed: 07/05/2016 [employer] Patient Education 2020 [employer] HEART CATHETERIZATION/PCI (radial) Discharge Instructions DIET [...] Document Reviewed: 03/17/2014 ExitCare Patient Information 2015 [employer]. This information is not intended to replace advicegiven to you by your health care provider. Make sure you discuss any questions you have with your health care provider. Additional Information VACCINATE! IT SAVES LIVES! Members of the community who have not yet received the COVID-19 vaccine and would like to receive it can visit one of [facility] vaccine clinics. There are many vaccine clinic locations within the [facility]. For locations and available times, please visit https://gettheshot.coronavirus.[place].gov/. It is important to note that some COVID mobile vaccine clinics are held outdoors and may be canceled in rainy or stormy conditions. To learn more about pediatric vaccinations (ages 5-11), we invite you to visit the [facility] webpage. https://www.[facility].org/pages/5639-Utldn-Bghcfzaqhqz-Lynbbarsvi-Hqnnz-Gmr stions.htmlTo learn more about the COVID-19 vaccine, we invite you to visit the CDC website for a list of frequently asked questions.https://www.cdc.gov/coronavirus/2019-ncov/vaccines/faq.html [employer] Patient Portal Access Instructions: Stay connected with your healthcare team and access your personal medical information anytime with the [employer] Patient Portal. Please follow the directions below to create your [employer] account: 1.Access the email account you provided upon registration to the hospital/physician office.2.Look for an invitation email from [facility].3.Open the email and access the invitation link: AcceptInvitation to [facility].4.Fill in the required gilmore to create your account. To access your account, visit [email or web address]. Click the blue button labeled "Access Patient Portal" and then log in with the username [...] who you will allowto register on the [facility] [employer] Patient Portal for access to your information. You can also access the [facility] [employer] Patient Portal on the [facility] toby. Simply click on "Patient Portal" and then log into your account. If you would like to receive a full copy of your medical records, please contact the [facility] Medical Records Department by calling [phone], Thursday through Thursday between 8 a.m. and [...] Call your local pharmacy or go to http://onefinestay.C2cube/0F5Vh9m to find one close to you.3.Make use of household items: Use cat litter or old coffee grounds to dispose medications if other options arenot available. Mix your drugs with these household products, seal them in an airtight container andthrow it into the garbage. Call [facility]: [phone] to be sure your drugs can be [...] am aware that I should contactmy doctor. 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 Wyman [facility] July 23, 2022 4:21pm Note Date/Time July 23, 2022 3:5 9pm [facility] Medical Records Department [address] [place] [address] Instructions for Home/Discharge Instructions 07/23/22 1559 MR#: [id number] Acct: [id number] Name: ZAYDA DAVIS Rep #:[id number] : 1965 56 From: Patsy Wyman DO PCP: BA [facility] Status:ADM I NO Discharge Instructions Diet Discharge [...] Referrals / Follow Up: Denisse Sutton NP, INSPECTOR [employer] [Primary Care Provider] - Within 2 Weeks Disposition Disposition (needs filled in before D/C Order can be placed): Home, Self Care 07/23/22 1621<Electronically signed by Patsy Wyman DO>Patsy Wyman DO CC: [employer] Denisse Sutton ~ Signed [facility] Work Phone: 1(253) 107-471604-26-[address] Montenegro [facility] July 22, 2022 11:41pm Note Date/Time July 22, 2022 4:4 6pm [facility] Medical Records Department [address] [place] [address] Emergency Department Summary 07/22/22 MR#: [id number] Acct: [id number] Name: ZAYDA DAVIS Rep #:[id number] : 1965 56 From: Patsy Montenegro MD PCP: TERESA Mas Status:ADM I NO Location: [place] [address] HPI History of Present Illness Chief Complaint: [...] was increasing her p.o. fluids at home. 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 CT head obtained given her altered [...] 74.3 H Lymph % (Auto) 11.[address] [place] [employer] % (Auto) 8.3 Eos % (Auto) 4.7 [...] mental status Disposition Disposition: Acute Care [facility] What to do if you have Problems For any increased pain, shortness of breath, bleeding, nausea or vomiting, chestpain, or any unexpected problems, contact your Primary Care Provider. Call [facility] ([phone]) or report to the closest Emergency Room. Call 911 if necessary. 07/22/22 2341 <Electronically signed by Patsy Montenegro MD> Cosigner Signature (if applicable): CC: TERESA Sutton ~ Signed [facility] Work Phone: 1(671) 474-637904-25-2023 History and physical note Author Dr. Wyman [facility] July 22, 2022 8:33pm Note Date/Time July 22, 2022 8:2 4pm [facility] Medical Records Department [address] [place] [address] H&P Exam - Hospitalist 07/22/222009 MR#: [id number] Acct: [id number] Name: ZAYDA DAVIS Rep #:[id number] : 1965 56 From: Patsy Wyman DO PCP: TERESA Mas Status:ADM I NO Location: [place] [address] HPI - General General Date of Admission: 07/22/22 Date of Service: 07/22/22 Chief Complaint: Somnolence, lethargy HPI Narrative ZAYDA DAVIS, is a 56 F who presents to the emergency room at [facility] after being sent in from her [...] labs will be repeated tomorrow. This may pipe turner to be a psychiatric problem, patient's sister states that the patient did go to see a psychiatrist 1 time but refused to go back to see the psychiatrist. [facility] Medical History (Updated 07/22/22 @ 19:16 by Gayla Candelario) Acute renal injury due to circulatory failure Anxiety Asthma Atherosclerosis of coronary artery of [place] heart without angina pectoris Bilateral carotid bruits [...] (Auto) 74.3 H, Lymph% (Auto) 11.2 L, [address] % (Auto) 8.3, Eos % (Auto) 4.7, [...] Sl. Cloudy, Urine pH 7.0, Ur Specific Crosby 1.010, Urine Protein 100 H, Urine Glucose [...] on Eliquis up until recently when a drug safety specialist took her off the medication due to the fact he could not come up with a reason why she was taking it and the family was not sure why she was on it. She had been placed onit by drug safety specialist in [place], according to the sister, her new drug safety specialist was going to attempt to contact that drug safety specialist to find out why the patient was taking Eliquis. She is no longer on Eliquis according to the sister, I have stopped this medication. Total clinical time spent by myself addressing the patient's medical issues, reviewing all of her data, and collaborating with patient's care team: 75 minutes Charges/Coding Visit Charges Inpatient E&M: 29196 Init Hosp L3 07/22/222030 <Electronically signed by [...] (if applicable): cc: TERESA Sutton; Dr. Patsy Wyman DO ~* Signed [facility] Work Phone: 1(777) 729-262704-18-[address] Dunn [facility] July 15, 2022 4:41pm Note Date/Time July 15, 2022 4:4 1pm [facility] Medical Records Department [address] [place] [address] Discharge Summary 07/15/22 1637 MR#: [id number] Acct: [id number] Name: ZAYDA DAVIS Rep #:[id number] : 1965 56 From: Mahamed Penn PCP: TERESA Mas Status:ADM I N Location: [place] [address] Providers Date of Admission: 07/12/22 Date of [...] lower lobe community-acquired pneumonia-patient was admitted to [facility], she continues on IV Rocephin and Zithromax.? Prelim sputum culture appears normal respiratory khoi.? Urinary antigens are negative.? SARS-CoV-2 and flu antigen are negative. 07/15: Patient is discharged on cefdinir 300 mg every 48 hourly based on creatinine clearance. Advised to take Ceftin 8 after dialysis on days of dialysis. Patient on Thursday and Thursday. Follow-up grounds keeper. #2 hypoxia secondary to right lower lobe community-acquired pneumonia: Patient was on 2 L of oxygen currently weaned off. 07/15: Patient is weaned off oxygen. 91% on room air. #3 end-stage renal disease on dialysis-patient states her dialysis days are Thursday, , and Thursday, her dialysis physician is in [place], ? Dr. Sanchez, the grounds keeper is consulted. 07/15: Patient was dialyzed today. [...] (Auto) 69.1, Lymph % (Auto) 13.4 L, [place] % (Auto) 8.1, Eos % (Auto) 8.6 [...] Month (For pneumonia. PFT) Denisse Sutton NP, NP-C [Primary Care Provider] - Disposition Disposition (needs filled in before D/C Order can be placed): Home Health Service Charges/Coding Visit Charges Inpatient E&M: 71732 Disch Hosp >30min 07/15/22 1641 <Electronically signed by Mahamed Dunn MD> Cosigner Signature (if applicable): CC: TERESA Sutton; Dr. Mahamed Dunn MD~ Signed [facility] Work Phone: 1(220) 442-163104-18-[address] Dunn [facility] July 15, 2022 4:37pm Note Date/Time July 15, 2022 7:0 9am [facility] Medical Records Department [address] [place] [address] Instructions for Home/Discharge Instructions 07/15/22 0909 MR#: [id number] Acct: [id number] Name: ZAYDA DAVIS Rep #:[id number] : 1965 56 From: Mahamed Penn PCP: [...] Month (For pneumonia. PFT) Denisse Sutton NP, INSPECTOR SALVAGE-C [Primary Care Provider] - Disposition Disposition (needs filled in before D/C Order can be placed): Home Health Service 07/15/22 1637<Electronically signed by Mahamed Dunn MD>Mahamed Dunn MD CC: TERESA Sutton; Dr. Patsy Wyman DO; Dr. Sanaz Gomez MD ~ Signed [facility] Work Phone: 1(672) 486-801204-17-[address] Dunn [facility] July 14, 2022 4:55pm Note Date/Time July 14, 2022 4:5 5pm [facility] Medical Records Department [address] [place] [address] Progress Note - Hospitalist 07/14/22 1650 MR#: [id number] Acct: [id number] Name: ZAYDA DAVIS Rep #:[id number] : 1965 56 From: Mahamed Penn PCP: TERESA Mas Status:ADM I N Location: [place] [address] Reason for Visit Reason for Visit: Diagnoses [...] / Micro Data Result Diagrams: 07/13/22 04:38 04/15/23 13:45 Labs: Laboratory Results - last 24 [...] lobe community-acquired pneumonia-patient will be admitted to [facility], she continues on IV Rocephin and [...] and Thursday, her dialysis physician is in [place], Dr. Sanchez, the grounds keeper is consulted. #4 recent fall with contusions [...] 196 H Charges/Coding Visit Charges Inpatient E&M: 29348 Subs Hosp L2 07/14/22 3747 <Electronically signed by Mahamed Dunn MD> Cosigner Signature (if applicable): CC: ~ Signed [facility] Work Phone: 1(633) 498-464404-16-[address] Wyman [facility] July 13, 2022 6:30pm Note Date/Time July 13, 2022 6:3 0pm [facility] Medical Records Department [address] [place] [address] Progress Note - Hospitalist 07/13/22 1827 MR#: [id number] Acct: [id number] Name: ZAYDA DAVIS Rep #:[id number] : 1965 56 From: Patsy Wyman DO PCP: Denisse Sutton INSPECTOR SALVAGE-C Status:ADM I N Location: [place] [id number] Reason for Visit Reason for Visit: Diagnoses [...] Clarity Cancelled, Urine pH Cancelled, Ur Specific Crosby Cancelled, U Specif Grav (Refrac) Cancelled, Urine [...] (Auto) 67.9, Lymph % (Auto) 10.[address], [address] [place] % (Auto) 13.9 H, Eos % (Auto) 7.2 H, Baso % (Auto) 0.3, Absolute Neuts (auto) 4.3, Absolute Lymphs (auto) 0.65 L, Nucleated RBC % 0 07/13/22 06:35: POC Glucose 120 H 07/13/22 07:48: POC Glucose 128 H 07/13/22 11:13: POC Glucose 262 H 07/13/22 12:35: Urine Color Yellow, Urine Clarity Sl. Cloudy, Urine pH 7.0, Ur Specific Crosby 1.010, Urine Protein 100 H, Urine Glucose [...] information but most of the time states "ask my sister, she takes care of me" Assessment & Plan Assessment/Plan (1) Community acquired pneumonia: PLAN: Plan 1. Right lower lobe community-acquired pneumonia-patient will be admitted to [facility], she continues on IV Rocephin and Zithromax day #2, aerosol treatments will be administered, labs will be obtained tomorrow morning #2 hypoxia secondary to right lower lobe community-acquired pneumonia-patient ismildly hypoxic, I will attempt to wean oxygen if possible #3 end-stage renal disease on dialysis-patient states her dialysis days are Thursday, , and Thursday, her dialysis physician is in [place], I called Dr. Sanchez (nephrology) and had [...] 36 minutes Charges/Coding Visit Charges Inpatient E&M: 09078 Subs Hosp L2 07/13/22 1830 <Electronically signed by Patsy Wyman DO> Cosigner Signature (if applicable): CC: ~ Signed [facility] Work Phone: 1(492) 641-141404-16-2023 History and physical note Author Dr. Wyman [facility] July 13, 2022 6:23pm Note Date/Time July 12, 2022 6:0 5pm [facility] Medical Records Department [address] [place] [address] H&P Exam - Hospitalist 07/12/22 1801 MR#: [id number] Acct: [id number] Name: ZAYDA DAVIS Rep #:[id number] : 1965 56 From: Patsy Wyman DO PCP: Denisse Sutton NP-C Status:ADM I N Location: [place] [address] HPI - General General Date of Admission: 07/12/22 Date of Service: 07/12/22 Chief Complaint: Cough, vomiting, headache HPI Narrative ZAYDA DAVIS, is a 56 F who presents to the emergency room at [facility] for evaluation of vomiting, headache, and dry cough. Complete history was unable to be obtained from the patient due to previous stroke, she keeps saying ask my sister she takes care of me". Work-up in the emergency room included a [...] however. She does not know who her grounds keeper is. Patient will be admitted to [facility] 3, she will be given aerosol treatments and IV Zithromax and Rocephin. Patient will be reevaluated tomorrow. 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 [facility] Medical History Acute renal injury due to circulatory failure Anxiety Asthma Atherosclerosis of coronary artery of [place] vie[place] heart without angina pectoris Bilateral carotid bruits [...] information but most of the time states "ask my sister, she takes care of me" Results Lab / Micro Data Result Diagrams: [...] 76.5 H, Lymph % (Auto) 7.6 L, [address] % (Auto) 12.2 H, Eos % (Auto) [...] lobe community-acquired pneumonia-patient will be admitted to [facility], she was placed on IV Rocephin and Zithromax, aerosol treatments will beadministered, labs will be obtained tomorrow morning #2 hypoxia secondary to right lower lobe community-acquired pneumonia-patient ismildly hypoxic, I will attempt to wean oxygen if possible #3 end-stage renal disease on dialysis-patient states her dialysis days are Thursday, , and Thursday, her dialysis physician is in [place], if patienthas to stay past Thursday of [...] 75 minutes Charges/Coding Visit Charges Inpatient E&M: 39456 Init Hosp L3 07/13/22 1823 <Electronically signed by Patsy Wyman DO> Cosigner Signature (if applicable): CC: TERESA Sutton; Dr. Patys Wyman, DO~ Signed [facility] Work Phone: 1(208) 657-565204-15-[address] Talley [facility] July 12, 2022 4:55pm Note Date/Time July 12, 2022 1:4 1pm [facility] Medical Records Department [address] [place] [address] Emergency Department Summary 07/12/22 MR#: [id number] Acct: [id number] Name: ZAYDA DAVIS Rep #:[id number] : 1965 56 From: Kamlesh MOORE PCP: TERESA Mas Status:ADM I N Location: [address] HPI <TERESA Connors - Last Filed: [...] on the concrete. Patient was seen at [facility], the patient and the patient's sister [...] <TERESA Connors - Last Filed: 07/12/22 15:47> [facility] Medical History Acute renal injury due to circulatory failure Anxiety Asthma Atherosclerosis of coronary artery of [place] heart without angina pectoris Bilateral carotid bruits [...] tingling, dizziness. Positive for headache, feeling of "out of it" Skin: Negative for any rashes, lumps, itching, [...] 76.5 H Lymph % (Auto) 7.[address] [place] % (Auto) 12.2 H Eos % (Auto) [...] Talley MD - Last Filed: 07/12/22 16:54> [facility] Narrative Medical decision making narrative: I [...] 76.5 H Lymph % (Auto) 7.[address] [place] % (Auto) 12.2 H Eos % (Auto) [...] rhythm rate of 65 with first-degree AVblock. FL interval is 204 ms. Cures duration 86 ms. QT duration 434 ms. There is evidence of low voltage. [place] is normal.) Discharge Plan Dx/Rx/DC Orders Clinical Impression: Community acquired pneumonia, Hypoxia, Closed head injury, Concussion, History of coronary artery stent placement, Hyperlipidemia, ESRD (end stage renal disease) on dialysis, Hypertension, History of CVA (cerebrovascular accident), Contusion of face, scalp and neck Disposition Disposition: Acute Care Hospital [facility] What to do if you have Problems For any increased pain, shortness of breath, bleeding, nausea or vomiting, chestpain, or any unexpected problems, contact your Primary Care Provider. Call [facility] ([phone]) or report to the closest Emergency Room. Call 911 if necessary. 07/12/22 1547 <Electronically signed by Kamlesh MOORE> Cosigner Signature (if applicable): 07/12/22 1655 <Electronically signed by Cesar REYES> CC: INSPECTOR SALVAGE-C Denisse Sutton ~ Signed [facility] Work Phone: 1(974) 731-599204-15-[address] Talley [facility] July 12, 2022 4:55pm Note Date/Time July 12, 2022 1:4 1pm [facility] Medical Records Department [address] [place] [address] Emergency Department Summary 07/12/22 MR#: [id number] Acct: [id number] Name: ZAYDA DAVIS Rep #:[id number] : 1965 56 From: Kamlesh MOORE PCP: TERESA Mas Status:ADM I N Location: [place] [id number] HPI <TERESA Connors - Last Filed: 07/12/22 [...] on the concrete. Patient was seen at [facility], the patient and the patient's sister [...] sister she is concerned for an infection. [facility] <TERESA Connors - Last Filed: 07/12/22 15:47> [facility] Medical History Acute renal injury due to circulatory failure Anxiety Asthma Atherosclerosis of coronary artery of [place] heart without angina pectoris Bilateral carotid bruits [...] mg chewable tablet 81 mg PO DAILY@0800 [facility] 07/15/18 [History Last Taken 05/27/21] apixaban 5 [...] tingling, dizziness. Positive for headache, feeling of "out of it" Skin: Negative for any rashes, lumps, itching, [...] 76.5 H Lymph % (Auto) 7.[address] [place] % (Auto) 12.2 H Eos % (Auto) [...] Talley MD - Last Filed: 07/12/22 16:54> [facility] MDM Narrative Medical decision making narrative: I have [...] 76.5 H Lymph % (Auto) 7.[address] [place] % (Auto) 12.2 H Eos % (Auto) [...] rhythm rate of 65 with first-degree AVblock. FL interval is 204 ms. Cures duration 86 ms. QT duration 434 ms. There is evidence of low voltage. [place] is normal.) Discharge Plan Dx/Rx/DC Orders Clinical Impression: Community acquired pneumonia, Hypoxia, Closed head injury, Concussion, History of coronary artery stent placement, Hyperlipidemia, ESRD (end stage renal disease) on dialysis, Hypertension, History of CVA (cerebrovascular accident), Contusion of face, scalp and neck Disposition Disposition: Acute Care Hospital [facility] What to do if you have Problems For any increased pain, shortness of breath, bleeding, nausea or vomiting, chestpain, or any unexpected problems, contact your Primary Care Provider. Call [facility] ([phone]) or report to the closest Emergency Room. Call 911 if necessary. 07/12/22 1547 <Electronically signed by Kamlesh MOORE> Cosigner Signature (if applicable): 07/12/22 5346 <Electronically signed by Cesar REYES> CC: TERESA Sutton ~ Signed [facility] Work Phone: 1(162) 800-859904-11-2023 Hospital Discharge instructions Patient Education 07/08/2022 17:13:08 [...] move any body part near the wound [phone] [employer]. [address] [place] [address]. All rights reserved. This information is not [...] injured area. Frequent bruising for unknown reasons 8653-8976 [employer]. [address] [place] [address]. All rights reserved. This information is not intended as a substitute for professional medical care. Always follow yourkettering health preblecare professional's instructions. 07/08/2022 17:12:43 Head Injury (Adult) [...] the ears or bruising around the eyes 7677-9808 [employer]. [address] [place] [address]. All rights reserved. This information is not [...] in vomit, stools (black or red color) 5556-5781 [employer]. [address] [place] [address]. All rights reserved. This information is not intended as a substitute for professional medical care. Always follow yourhealthcare professional's instructions. Follow Up Care 07/08/2022 15:15:31 With:DENISSE SUTTON Address: [address] [facility] [place] [address]- [phone] Business (1) When:2-4 days Comments:Follow-up as needed if symptoms or not improving.Limit activity and weightbearing as tolerated.Use ice/cold compresses to injured areas.Topical antibiotic ointment like Neosporin or bacitracin to abrasions.Use Tylenol or Advil for pain as needed.Return to the ED if symptoms worsen. [facility] 04-11-2023 Emergency department Discharge summary Discharge Instructions Thank you for allowing [facility] to assist you with your healthcare needs. [...] ED if symptoms worsen. Where: [address] [facility] [place] [address]- [phone] Business (1) Allergies NKA Medications Please ask [...] move any body part near the wound [employer]. [address] [place] [address]. All rights reserved. This information is not [...] injured area. Frequent bruising for unknown reasons [employer]. [address] [place], [place] [id number]. All rights reserved. This information is not [...] the ears or bruising around the eyes 5778-2293 [employer]. [address] [place] [address]. All rights reserved. This information is not [...] in vomit, stools (black or red color) 3682-8780 [employer]. [address] [place] [address]. All rights reserved. This information is not intended as a substitute for professional medical care. Always follow yourhealthcare professional's instructions. Additional Information VACCINATE! IT SAVES LIVES! Members of the community who have not yet received the COVID-19 vaccine and would like to receive it can visit one of [facility] vaccine clinics. There are many vaccine clinic locations within the [facility]. For locations and available times, please visit www.[email or web address].[place].gov/. It is important to note that some COVID mobile vaccine clinics are held outdoors and may be canceled in rainy or stormy conditions. To learn more about pediatric vaccinations (ages 5-11), we invite you to visit the [facility] webpage. [email or web address]/[email or web address]-[email or web address]-[email or web address]-Foi stions.htmlTo learn more about the COVID-19 vaccine, we invite you to visit the CDC website for a list of frequently asked questions. https://www.cdc.gov/coronavirus/2019-ncov/vaccines/faq.html [facility] [employer] Patient Portal Access Instructions: Stay connected with your healthcare team and access your personal medical information anytime with the [employer] Patient Portal. If you would like a full copy of your medical records please contact the [facility] Medical Records Department Thursday through Thursday between 8a.m. and 4:30p.m. Please follow the directions below to access the portal: 1.Access the email account you provided upon registration to the [facility].2.Look for an invitation email from [facility].3.Open the email and access the invitation link: Accept Invitation to [facility].Fill in the required gilmore to create your account. Sign into www.[employer] with your username and password that you [...] you will allow to register on the [employer] Patient Portal for access to your information. You can also access the [employer] Patient Portal on the [employer]. Simply click on "Health Records" under "[employer] Video" and then click on the [facility] logo. HOW TO SAFELY DISPOSE OF PRESCRIPTION [...] Call your local pharmacy or go to http://onefinestay.[email or web address]/6K6Wx7z to find one close to you.3.Make use of household items: Use cat litter or old coffee grounds to dispose medications if other options arenot available. Mix your drugs with these household products, seal them in an airtight container andthrow it into the garbage. Call [facility]: [phone] to be sure your drugs can be [...] am aware that I should contactmy doctor. 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] Sign Date: 07/08/2022 4:02:26 PM Ordering Provider: [place] [address]-11-2023 Note ORIGINAL EXAMINATION: THREE XRAY VIEWS OF [...] Sign Date: 07/08/2022 4:02:26 PM Ordering Provider: [place] [address]-11-2023 Note ORIGINAL EXAMINATION: CT OF THE CERVICAL [...] Sign Date: 07/08/2022 4:10:31 PM Ordering Provider: [facility]04-11-2023 Note ORIGINAL EXAMINATION: CT OF THE HEAD [...] Sign Date: 07/08/2022 4:34:20 PM Ordering Provider: [facility]01-17-2023 SARS-CoV-2 (COVID-19) RNA YANI+probe Ql (Nph)Negative *NA* (04/15/22 4:28 PM)AO Auto Urine [id number] Note ORIGINAL PROCEDURE: IR ANGIOGRAM ARTERIOVENOUS SHUNT [...] the procedure including risks, benefits, and alternatives. [place] protocol was observed. Sterile gowns, masks, hats [...] towards the arterial anastomosis and a 6 Romanian vascular sheath was placed. Using an angled [...] Date: 02/25/2022 10:26:58 PM [facility]ing [id number] Discharge instructions Patient Education 02/25/2022 14:40:37 [...] until you are awake and alert. Take ezqm-ysk-uyffhig and prescription medicines only as told by [...] 01/04/2014 Document Revised: 02/26/2018 Document Reviewed: 07/05/2016 [employer] Patient Education 2020 [employer]. Follow Up Care 02/11/2022 12:49:51 With:Follow up with primary care provider Address:Unknown When: Unknown [facility] 11-29-2022 Summary of episode note Discharge Instructions Thank you for allowing [facility] to assist you with your healthcare needs. The following is importantdischarge information regarding your hospital visit. Your Care Team DENISSE SUTTON What to do next Scheduled Follow-Up Appointments Appointment Type When With Where Contact InformationDB Diabetic Individual Visit ([facility]OH) 03/19/2022 02:30 PM KEYSHAWN [facility] OV 05/21/2022 10:00 AM DENISSE KOENIG [facility] [place] Follow Up Appointments Follow Up with Follow [...] until you are awake and alert. Take zeyq-pgq-gefxhpa and prescription medicines only as told by [...] 01/04/2014 Document Revised: 02/26/2018 Document Reviewed: 07/05/2016 [employer] Patient Education 2020 [employer] Additional Information VACCINATE! IT SAVES LIVES! Members of the community who have not yet received the COVID-19 vaccine and would like to receive it can visit one of [facility] vaccine clinics. There are many vaccine clinic locations within the [facility]. For locations and available times, please visit https://gettheshot.coronavirus.[place].gov/. It is important to note that some COVID mobile vaccine clinics are held outdoors and may be canceled in rainy or stormy conditions. To learn more about pediatric vaccinations (ages 5-11), we invite you to visit the [facility] webpage. https://www.[facility].org/pages/3641-Ngedx-Zkuhugpniho-Yrwwngebfp-Sokxs-Qcl stions.htmlTo learn more about the COVID-19 vaccine, we invite you to visit the [facility] website for a list of frequently asked questions. https://In[employer]/assets/Mzszwdgo-zos-Adhowqxh/leksb-Fvlqgso-Edblefotlv _Asked-Questions.pdf [facility] Patient Portal Access Instructions: Stay connected with your healthcare team and access your personal medical information anytime with the [facility] Patient Portal.If you would like a full copy of your medical records, please contact the [facility] Medical Records Department, Thursday through Thursday between 8a.m. and 4:30p.m. Please follow the directions below to access the portal: 1.Access the email account you provided upon registration to the [facility].2.Look for an invitation email from [facility].3.Open the email and access the invitation link: Accept Invitation to [facility]4.Fill in the required gilmore to create your account. Sign into www.kelseyRestore [employer]s with your username and password that you [...] you will allow to register on the [facility] Patient Portal for access to your information. You can also access the [facility] Patient Portal on the Miiix. Simply click on "Health Records" under "HealthDaXL Video" and then click on the [facility] logo. [...] Call your local pharmacy or go to http://[email or web address]/[email or web address] to find one close to you.3.Make use of household items: Use cat litter or old coffee grounds to dispose medications if other options arenot available. Mix your drugs with these household products, seal them in an airtight container andthrow it into the garbage. Call [facility]: [phone] to be sure your drugs can be [...] am aware that I should contactmy doctor. 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 [place] protocol was observed. Sterile gowns, masks, hats [...] towards the arterial anastomosis and a 6 Romanian vascular sheath was placed. Using an angled [...] Sign Date: 02/25/2022 10:26:58 PM Ordering Provider: [facility]11-29-2022 Note IR Procedure Record Summary Primary Physician: Finalized Date/Time: 02/25/22 14:08:28 Pt. Name: ZAYDA DAVIS /Sex: 1965 Female Med Rec #: [id number] Physician: Financial #: [id number] Pt. Type: S Room/Bed: [facility]B Admit/Disch: 02/25/22 09:04:47 - Institution: Allergies identified in patient's electronic medical record at time of printing on 02/25/22 Entry 1 Substance NKA Reaction Type Allergy Last Modified By: SAPNA Bowles 07/16/18 17:33:02 Case Attendance- IR Entry 1 Entry 2 Entry 3 Case Attendee JAY CANELA MDn, RN Meggan Estrada Role Performed Radiologist Procedure Procedure Nurse Cook Jelly Details Time In 02/25/22 11:39:00 02/25/22 11:39:00 [...] Humphrey RN Deborah E Tech Role Performed Cook Jelly Procedure Nurse Details Time In 02/25/22 11:39:00 [...] No No Physician? Administered by: SAPNA Canela, RN Kyle Canela, SAPNA Galindo Verbal Order Read JAY CANELA MD, LAURIAN M MD DEAN, LAURIAN M MD Back from: Last Modified By: SAPNA Canela, SAPNA Canela, RN Kyle Galindo 02/25/22 12:01:21 02/25/22 12:01:21 02/25/22 12:01:21 Entry [...] No No No Physician? Administered by: SAPNA aCnela, SAPNA Canela, SAPNA Galindo Verbal Order Read JAY CANELA MD, LAURIAN M MD DEAN, LAURIAN M MD Back from: Last Modified By: SAPNA Canela, SAPNA Canela, SAPNA Galindo 02/25/22 12:32:41 02/25/22 12:47:55 02/25/22 12:47:55 Entry [...] Area Arm Side Left By Jazzmine Humphrey Prep Agents Chloraprep Tech Hair Removal Method [...] Radiology - Action Plan Outcomes Met? 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 Beti Ratliff PA-C Interventional Radiology Pager [phone] IR Dept [id number] Available on [facility] Future Appointments Appointment Date:03/19/2022 02:30:00 PM Scheduled Provider: Location:ST Appointment Type:MEKA Diabetic Individual Visit (AOH) Appointment Date:05/21/2022 10:00:00 AM Scheduled Provider:DENISSE SUTTON Location:[facility] Appointment Type: OV Future Scheduled Tests Laboratory* Thyroid Stimulating Hormone 06/12/22 * A1C Hemoglobin 06/12/22 * Complete Blood Count 06/12/22 * Lipid Profile 02/28/21 * Lipid Profile 06/12/22 * Vitamin D Level 02/28/21 * Complete Metabolic Panel 06/12/22 Radiology* MA Mammo Screening Bilateral w/ Julien 09/02/21 * XR Shoulder Minimum 2 Views Left 07/31/21 * XR Shoulder Minimum 2 Views Right 08/15/21 [facility] 11-29-2022 Interventional radiology Consult note INTERVENTIONAL RADIOLOGY POST PROCEDURE NOTE DATE: 02/25/2022 13:57:57 NAME: ZAYDA DAVIS 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 Credit Interviewer: Dr. Patsy Canela Procedure: _Fistulagram with angioplasty [...] Please contact for any questions or concerns. Pasty Ivey MD Interventional Radiology IR dept: x [phone] Available on [employer] Digitally Signed by JAY CANELA MD on 02/25/2022 01:58 PM [facility] HospitalSptxrmud20-23-2386 History and physical note IR PREPROCEDURE H&P [...] 02/12/2022 and can be found in the [facility] ([facility]). Beti Ratliff PA-C Interventional Radiology Pager [phone] IR Dept [id number] Available on [employer] Digitally Signed by BETI RATLIFF PA-C on 02/25/2022 11:19 AM [facility] HospitalMdtruaci05-07-1794 Note ORIGINAL NM MYOCARDIAL SPECT STRESS/REST CLINICAL [...] PM Sign Date: 01/10/2022 4:23:30 PM Ordering Provider:[facility]10-14-2022 Note ORIGINAL NM MYOCARDIAL SPECT STRESS/REST [...] PM Sign Date: 01/10/2022 4:23:30 PM Ordering Provider:[facility]10-14-2022 Note Procedure: Adenosine Cardiac Stress Test, [...] PM Digitally Signed by PAUL PAL MD [facility] HospitalXoeuiwww04-48-2653 Hospital Discharge instructions Patient Education 12/15/2021 13:38:12 [...] the coronavirus come from? In February 2019, [place] told the World Health Organization (WHO) of several cases of lung disease (human respiratory illness). These cases were linked to an open seafood and livestock market in the [facility]. The link to the seafood and [...] and virus naming World Health Organization (WHO): www.who.int/emergencies/diseases/mnonx-rutloedpkwe-2312/technical-g uidance/hfuamb-bdf-alqweetjbnu-disease-(covid-2019)-cle-upi-sflck-nvhe-nyvxtu-vf Who is at risk for complications from [...] relieve his or her symptoms by using fudo-udd-aofqrnl medicines that treat sneezing, coughing, and runny [...] water are not available, use alcohol-based hand plow and boring machine tender. Avoid touching your face, mouth, nose, or [...] Prevention (CDC): www.cdc.gov/coronavirus/2019-ncov/travelers/index.html World Health Organization (WHO): www.who.int/emergencies/diseases/datgn-xvbtmgvtnvo-5865/travel-advice Know the risks and take action to [...] water are not available, use alcohol-based hand plow and boring machine tender. Cough or sneeze into a tissue, sleeve, [...] in hot, soapy water or use a building maintenance worker. Air-dry your dishes. Wash laundry in hot [...] Health Organization (WHO) Information and news updates: www.who.int/emergencies/diseases/gdqdt-ipjuiheisvm-0221 Coronavirus health topic: www.who.int/health-topics/coronavirus Questions and answers on COVID-19: www.who.int/news-room/q-a-detail/j-d-xkwqjzuzhjwqq Global tracker: [employer] [place] [employer] Pediatric[employer] (AAP) Information for families: www.healthychildren.org/Rwandan/health-issues/conditions/chest-lungs/Pages /7108-Wnomg-Ivabpcvutjx.aspx The coronavirus situation is changing rapidly. Check [...] 07/12/2019 Document Revised: 07/12/2019 Document Reviewed: 07/12/2019 [employer] Patient Education 2019 [employer]. Follow Up Care 12/13/2021 06:34:45 With:DENISSE SUTTON Address: [address] [place] [address] [phone] When:5 to 7 days Comments:Follow-up with primary care physician as an outpatient. Call to make an appointment. [facility] 09-18-2022 Note Discharge Instructions Thank you for allowing [facility] to assist you with your healthcare needs. [...] InformationDB Diabetic Individual Visit 12/25/2021 10:00 AM EDT [facility] OV 01/06/2022 03:00 PM EDT DENISSE SUTTON [facility] Follow Up Appointments Follow Up with DENISSE SUTTON When Within 5 to 7 days Why: Follow-up with primary care physician as an outpatient. Call to make an appointment. Where: [address] [place] [address]- [phone] The Following Activity and Diet Have Been [...] the coronavirus come from? In February 2019, [place] told the World Health Organization (WHO) of several cases of lung disease (human respiratory illness). These cases were linked to an open seafood and livestock market in the city of [facility]. The link to the seafood and [...] and virus naming World Health Organization (WHO): www.who.int/emergencies/diseases/ylfvr-qepkfjlxclm-9843/technical-g uidance/iqcdtg-qsp-mioohfzzasj-disease-(covid-2019)-fox-ldc-vmnar-epry-ghbwtz-kx Who is at risk for complications from [...] relieve his or her symptoms by using jwwl-amp-dkuitlt medicines that treat sneezing, coughing, and runny [...] water are not available, use alcohol-based hand plow and boring machine tender. Avoid touching your face, mouth, nose, or [...] Prevention (CDC): www.cdc.gov/coronavirus/2019-ncov/travelers/index.html World Health Organization (WHO): www.who.int/emergencies/diseases/kdbkt-ftfrpwjexhj-8619/travel-advice Know the risks and take action to [...] water are not available, use alcohol-based hand plow and boring machine tender. Cough or sneeze into a tissue, sleeve, [...] in hot, soapy water or use a building maintenance worker. Air-dry your dishes. Wash laundry in hot [...] Health Organization (WHO) Information and news updates: www.who.int/emergencies/diseases/iifat-rovanmpolui-9500 Coronavirus health topic: www.who.int/health-topics/coronavirus Questions and answers on COVID-19: www.who.int/news-room/q-a-detail/t-p-edzioxnossloh Global tracker: who.Fortuna Vini [place] Academy of Pediatrics (AAP) Information for families: www.healthychildren.org/Rwandan/health-issues/conditions/chest-lungs/Pages /7942-Yqmtz-Fjtcrntrevy.aspx The coronavirus situation is changing rapidly. Check your local health authority website or the [facility] WHO websites for updates and news. When [...] 07/12/2019 Document Revised: 07/12/2019 Document Reviewed: 07/12/2019 [employer] Patient Education 2020 [employer] Additional Information VACCINATE! IT SAVES LIVES! Members of the community who have not yet received the COVID-19 vaccine and would like to receive it can visit one of [facility] vaccine clinics. There are many vaccine clinic locations within the [facility]. For locations and available times, please visit https://gettheshot.coronavirus.[place].gov/. It is important to note that some COVID mobile vaccine clinics are held outdoors and may be canceled in rainy or stormy conditions. To learn more about pediatric vaccinations (ages 5-11), we invite you to visit the [facility] webpage. https://www.[facility].org/pages/1188-Pyyhc-Uwifdkdkpam-Tjmmwtmdkb-Jrklm-Hgh stions.htmlTo learn more about the COVID-19 vaccine, we invite you to visit the [facility] website for a list of frequently asked questions. https://Day Zero [employer]/assets/Adsbarud-hib-Jeczfmvl/midzy-Hvzuxwd-Gcuewylqjv _Asked-Questions.pdf [facility] Patient Portal Access Instructions: Stay connected with your healthcare team and access your personal medical information anytime with the [facility] Patient Portal.If you would like a full copy of your medical records, please contact the [facility] Medical Records Department, Thursday through Thursday between 8a.m. and 4:30p.m. Please follow the directions below to access the portal: 1.Access the email account you provided upon registration to the hospital.2.Look for an invitation email from [facility].3.Open the email and access the invitation link: Accept Invitation to [facility]4.Fill in the required gilmore to create your account. Sign into www.Day Zero Project with your username and password that you [...] you will allow to register on the [facility] Patient Portal for access to your information. You can also access the [employer] Patient Portal on the Miiix. Simply click on "Health Records" under "HealthData" and then click on the [facility] logo. HOW TO SAFELY DISPOSE OF PRESCRIPTION [...] Call your local pharmacy or go to http://onefinestay.C2cube/[email or web address] to find one close to you.3.Make use of household items: Use cat litter or old coffee grounds to dispose medications if other options arenot available. Mix your drugs with these household products, seal them in an airtight container andthrow it into the garbage. Call [facility]: [phone] to be sure your drugs can be [...] am aware that I should contactmy doctor. 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 Where: [address] [place] [address] [phone] Discharge Diet Discharge Diet - Ordered -- [...] JUANITA COLLADO MD on 12/15/2021 11:27 PM [facility] HospitalVbxeghxh85-97-0892 Nephrology Progress note Subjective Patient was seen. [...] STEVIE PEREZ MD on 12/15/2021 10:14 AM [facility] HospitalMvrbfihg63-34-9814 Note Date of Service December 14, 2021 [...] June per her request atth numbers listed [phone] and [phone] but was unable to reach her at either number Digitally Signed by JUANITA COLLADO MD on 12/14/2021 04:45 PM [facility] HospitalAenbkrdd76-01-0080 Nephrology Progress note Date of Service December 14 2021 Patient seen on hemodialysis on treatment well. Digitally Signed by STEVIE PEREZ MD on 12/14/2021 11:43 AM [facility] HospitalOjydxzer58-07-5629 Consult note Date of Service December 14, [...] (Oral) HR: 63(Monitored) RR: 18 BP: 142/62 SpO2: 94% HT: 160 cm WT: 100 kg BMI: [...] STEVIE PEREZ MD on 12/14/2021 11:41 AM [facility] HospitalScxwwqyk33-37-4772 Nurse Progress note Student's documentation was reviewed and all medications were verified prior to administration. Digitally Signed by Yaa Miguel RN on 12/13/2021 11:08 PM [facility] HospitalOboaxcvz30-70-2894 Respiratory therapy Hospital Progress note Respiratory Therapy Evaluation Entered On: 12/13/2021 20:01 EDT Performed On: 12/13/2021 20:00 EDT by Yaa Henry RRT Respiratory Therapy Evaluation Respiratory Therapy Evaluation Score : 5 Level of Activity : Ambulatory with assistance Mental Status : Alert, oriented Respiratory Evaluation Triage Score : 3 - (11-15) Freq: QIDRT & Albuterol Q2 RT prn RT Assessment [Frequency/Schedule] : QID and PRN Yaa Henry SALES REPRESENTATIVE SALES MANAGER - 12/13/2021 20:03 EDT Pulmonary Status : Smoking history >20 pack years Surgical Status : No surgeries Chest X-Ray : Clear/not ordered Breath Sounds (RT) : Clear Respiratory Pattern (RT) : Regular RR=12-20 Cough (RT) : Weak, non-productive Yaa Henry SALES REPRESENTATIVE SALES MANAGER - 12/13/2021 20:00 EDT Digitally Signed by Yaa Henry SALES REPRESENTATIVE SALES MANAGER on 12/13/2021 08:03 PM [facility] HospitalQezozinv53-66-1304 History and physical note Date of Service [...] not get any better she went to [place] ER complaining of continued to vomiting, worsening [...] 2: Continue to monitor blood glucose QA [facility] and start the patient on sliding [...] qualifying data available. Digitally Signed by JASWINDER UREDA MD on 12/13/2021 04:14 PM [facility] HospitalVazizkyq17-44-2600 Evaluation + Plan noteExtracted from: Title:History and [...] 2: Continue to monitor blood glucose QA [facility] and start the patient on sliding [...] Appointments Appointment Date:12/25/2021 10:00:00 AM Scheduled Provider: Location:[facility] Appointment Type:DB Diabetic Individual Visit Appointment Date:01/06/2022 03:00:00 PM Scheduled Provider:DENISSE SUTTON Location:[facility] Appointment Type:PC OV Future Scheduled Tests Laboratory* A1C Hemoglobin 02/28/21 * Lipid Profile 02/28/21 * Vitamin D Level 02/28/21 * Complete Metabolic Panel 02/28/21 Radiology* MA Mammo Screening Bilateral w/ Julien 09/02/21 * NM Myocardial Spect Rest/Stress 12/12/21 * XR Shoulder Minimum 2 Views Left 07/31/21 * XR Shoulder Minimum 2 Views Right 08/15/21 [facility] 09-16-2022 Note ORIGINAL EXAMINATION: ONE XRAY [...] Sign Date: 12/13/2021 6:45:06 AM Ordering Provider: [facility]09-16-2022 Note ORIGINAL EXAMINATION: ONE XRAY VIEW OF [...] Sign Date: 12/13/2021 6:45:06 AM Ordering Provider: [facility]09-16-2022 SARS-CoV-2 (COVID-19) RNA YANI+probe Ql (Nph)Positive *ABN* (12/13/21 4:41 AM)AO Auto Urine [id number] HCoV 229E RNA YANI+non-probe Ql (Nph) Not Detected *NA* (12/11/21 4:15 PM) Auto Viro/Sero [id number] Note ORIGINAL HISTORY: Multiple palpable masses in [...] 11/22/2021 1:45:56 PM Ordering Provider: [facility]08-26-2022 Note ORIGINAL HISTORY: Multiple palpable masses in [...] Sign Date: 11/22/2021 1:45:56 PM Ordering Provider: [facility]08-08-2022 Hospital Discharge instructions Patient Education 11/04/2021 18:02:01 [...] If this occurs, you may take an ennb-mof-aeijzof laxative. Prevention Keep medicines, pesticides, and other household chemicals in their original containers. Clearly ptasy all harmful products if a different bottle is used. Keep all substances in a safe place. In the future, if you or someone you know takes something possibly harmful, and you are not sure what to do, call the [place] [employer] Poison Control Centers. The phone number is [phone].The phone line is staffed 24 hours a [...] 24 hours Abdominal pain Dizziness or weakness 4910-6314 The WriteOn. [address] [place] [address]. All rights reserved. This information is not intended as a substitute for professional medical care. Always follow yourhealthcare professional's instructions. Follow Up Care 11/04/2021 14:39:51 With:DENISSE SUTTON APRN[facility] Address: [address] [facility] [place] [address]- [phone] When:2-4 days [facility] 08-08-2022 Note Discharge Instructions Thank you for allowing [facility] to assist you with your healthcare needs. [...] When Within 2-4 days Where: [address] [facility] [place] [address]- [phone] Allergies NKA Medications Please ask your primary [...] If this occurs, you may take an coxg-fih-ynqaxko laxative. Prevention Keep medicines, pesticides, and other household chemicals in their original containers. Clearly patsy all harmful products if a different bottle is used. Keep all substances in a safe place. In the future, if you or someone you know takes something possibly harmful, and you are not sure what to do, call the [place] [employer] Poison Control Centers. The phone number is [phone].The phone line is staffed 24 hours a [...] 24 hours Abdominal pain Dizziness or weakness 3516-7279 The [employer]. [address] [place] [address]. All rights reserved. This information is not intended as a substitute for professional medical care. Always follow yourhealthcare professional's instructions. Additional Information VACCINATE! IT SAVES LIVES! Members of the community who have not yet received the COVID-19 vaccine and would like to receive it can visit one of [facility] vaccine clinics. There are many vaccine clinic locations within the [facility]. For locations and available times, please visit www.gettheshot.coronavirus.[place].org. It is important to note that some COVID mobile vaccine clinics are held outdoors and may be canceled in rainy orstormy conditions. To learn more about pediatric vaccinations (ages 5-11), we invite you to visit the [facility] webpage. https://www.[facility].org/pages/1798-Vbgge-Eikbeawaxro-Zezhbtqcwg-Dyxhw-Qyo stions.htmlTo learn more about the COVID-19 vaccine, we invite you to visit the [facility] website for a list of frequently asked questions. https://Day Zero Project/assets/Sfowauns-bor-Bnreeums/mimqc-Vwtuerq-Wzngxylbnr _Asked-Questions.pdf [facility] Patient Portal Access Instructions: Stay connected with your healthcare team and access your personal medical information anytime with the [facility] [employer] Patient Portal. If you would like a full copy of your medical records please contact the [facility] Medical Records Department Thursday through Thursday between 8a.m. and 4:30p.m. Please follow the directions below to access the portal: 1.Access the email account you provided upon registration to the [facility].2.Look for an invitation email from [facility].3.Open the email and access the invitation link: Accept Invitation to [facility]4.Fill in the required gilmore to create your account. Sign into www.kelseyRestore [employer] with your username and password that you [...] you will allow to register on the [facility] [employer] Patient Portal for access to your information. You can also access the [facility] Patient Portal on the [employer] toby. Simply click on "Health Records" under "HealthSayduck" and then click on the [facility] logo. [...] Call your local pharmacy or go to http://bit.C2cube/9U5Hb2m to find one close to you.3.Make use of household items: Use cat litter or old coffee grounds to dispose medications if other options arenot available. Mix your drugs with these household products, seal them in an airtight container andthrow it into the garbage. Call [facility]: [phone] to be sure your drugs can be [...] am aware that I should contactmy doctor. 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 She is a very [id number] year old woman with history of ESRD of type 2 diabetes etiology. She was never evaluated here at [facility] or any other transplant institute for [...] what caused you kidney disease, she replied, "because I did not eat right" and started crying. Towards the end of my encounter, when I mentioned about her heart disease being a barrier to kidney transplant surgery, she began sobbing. PM/PSHx: 1. 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 HTN 3. DM-II for 15 years. 4. CAD, s/p PCI Active Problems Abdominal pain (789.00) (R10.9) Added by Problem List Migration; 2012-06-28; Moved to [facility] Feb 23 2013 9:11PM Acid reflux [...] NameInstruction BD Insulin Syringe Ultrafine 31G X 15/64" 1 ML MISCUSE DIRECTED 5 TIMES DAILY [...] Appointment Date:02/28/2021 09:30:00 AM Scheduled Provider:DENISSE SUTTON Location:[facility] Appointment Type:PC OV Diagnostic Tests Pending * Hepatitis B Core Antibody Total 01/10/21 Future Scheduled Tests Laboratory* Clostridium difficile PCR 10/22/20 * A1C Hemoglobin 02/28/21 * Lipid Profile 02/28/21 * Vitamin D Level 02/28/21 * Complete Metabolic Panel 02/28/21 Radiology* MA Mammo Screening Bilateral w/ Julien 08/29/20 [facility] Evaluation + Plan note Future Appointments Appointment Date:09/10/2021 03:00:00 PM Scheduled Provider: Location:[facility] Appointment Type:DB Diabetic Individual Visit Future Scheduled Tests Laboratory* Clostridium difficile PCR 10/22/20 * A1C Hemoglobin 02/28/21 * Lipid Profile 02/28/21 * Vitamin D Level 02/28/21 * Complete Metabolic Panel 02/28/21 Radiology* MA Mammo Screening Bilateral w/ Julien 08/29/20 * XR Shoulder Minimum 2 Views Left 07/31/21 [facility] Evaluation + Plan note Future Appointments Appointment Date:09/24/2021 02:00:00 PM Scheduled Provider: Location:[facility] Appointment Type:DB Diabetic Individual Visit Appointment Date:10/07/2021 03:30:00 PM Scheduled Provider:DENISSE SUTTON Location:[facility] Appointment Type:PC OV Follow Up Appointment Date:10/10/2021 04:30:00 PM Scheduled Provider: Location:[facility] Appointment Type:CV INSPECTOR SALVAGE Future Scheduled Tests Laboratory* Clostridium difficile PCR 10/22/20 * A1C Hemoglobin 02/28/21 * Lipid Profile 02/28/21 * Vitamin D Level 02/28/21 * Complete Metabolic Panel 02/28/21 Radiology* MA Mammo Screening Bilateral w/ Julien 09/02/21 * XR Shoulder Minimum 2 Views Left 07/31/21 * XR Shoulder Minimum 2 Views Right 08/15/21 [facility] Evaluation + Plan note Future Appointments Appointment Date:02/28/2021 09:30:00 AM Scheduled Provider:DENISSE SUTTON Location:[facility] Appointment Type:PC OV Future Scheduled Tests Laboratory* Clostridium difficile PCR 10/22/20 * A1C Hemoglobin 02/28/21 * Lipid Profile 02/28/21 * Vitamin D Level 02/28/21 * Complete Metabolic Panel 02/28/21 Radiology* MA Mammo Screening Bilateral w/ Julien 08/29/20 [facility] Evaluation + Plan note Future Appointments Appointment Date:10/29/2021 11:00:00 AM Scheduled Provider: Location:[facility] Appointment Type:CV INSPECTOR SALVAGE Appointment Date:12/25/2021 10:00:00 AM Scheduled Provider: Location:[facility] [...] XR Shoulder Minimum 2 Views Right 08/15/21 [facility] Evaluation + Plan note Future Appointments Appointment Date:11/22/2021 10:00:00 AM Scheduled Provider: Location:[facility] Appointment Type:VL AOH - Venous US/Doppler One Leg (for Appointment Date:11/22/2021 11:00:00 AM Scheduled Provider: Location:[facility] Appointment Type:US Soft Tissue Mass Appointment Date:12/11/2021 09:30:00 AM Scheduled Provider: Location:[facility] Appointment Type:NM Myocardial Spect Rest/Stress [place] Appointment Date:12/11/2021 10:00:00 AM Scheduled Provider: Location:[facility] Appointment Type:CV Procedure - Echo (Adult) Appointment Date:12/11/2021 11:00:00 AM Scheduled Provider: Location:[facility] Appointment Type:VL - Carotid US/Doppler Complete Appointment Date:12/25/2021 10:00:00 AM Scheduled Provider: Location:[facility] Appointment Type:DB Diabetic Individual Visit Appointment Date:01/06/2022 03:00:00 PM Scheduled Provider:DENISSE SUTTON Location:[facility] Appointment Type:PC OV Future Scheduled Tests Laboratory* A1C Hemoglobin 02/28/21 * Lipid Profile 02/28/21 * Vitamin D Level 02/28/21 * Complete Metabolic Panel 02/28/21 Radiology* MA Mammo Screening Bilateral w/ Julien 09/02/21 * NM Myocardial Spect Rest/Stress 12/11/21 * XR Shoulder Minimum 2 Views Left 07/31/21 * XR Shoulder Minimum 2 Views Right 08/15/21 * US Soft Tissue Mass 11/22/21 [facility] Evaluation + Plan note Future Appointments Appointment Date:12/11/2021 09:30:00 AM Scheduled Provider: Location:[facility] Appointment Type:NM Myocardial Spect Rest/Stress Mar[place]ell Appointment Date:12/11/2021 10:00:00 AM Scheduled Provider: Location:[facility] Appointment Type:CV Procedure - Echo (Adult) Appointment Date:12/11/2021 11:00:00 AM Scheduled Provider: Location:[facility] Appointment Type:VL - Carotid US/Doppler Complete Appointment Date:12/25/2021 10:00:00 AM Scheduled Provider: Location:[facility] Appointment Type:DB Diabetic Individual Visit Appointment Date:01/06/2022 03:00:00 PM Scheduled Provider:DENISSE SUTTON Location:[facility] Appointment Type:PC OV Future Scheduled Tests Laboratory* A1C Hemoglobin 02/28/21 * Lipid Profile 02/28/21 * Vitamin D Level 02/28/21 * Complete Metabolic Panel 02/28/21 Radiology* MA Mammo Screening Bilateral w/ Julien 09/02/21 * NM Myocardial Spect Rest/Stress 12/11/21 * XR Shoulder Minimum 2 Views Left 07/31/21 * XR Shoulder Minimum 2 Views Right 08/15/21 [facility] Evaluation + Plan note Future Appointments Appointment Date:12/25/2021 10:00:00 AM Scheduled Provider: Location:[facility] Appointment Type:DB Diabetic Individual Visit Appointment Date:01/06/2022 03:00:00 PM Scheduled Provider:DENISSE SUTTON Location:[facility] Appointment Type:PC OV Future Scheduled Tests Laboratory* A1C Hemoglobin 02/28/21 * Lipid Profile 02/28/21 * Vitamin D Level 02/28/21 * Complete Metabolic Panel 02/28/21 Radiology* MA Mammo Screening Bilateral w/ Julien 09/02/21 * NM Myocardial Spect Rest/Stress 12/12/21 * XR Shoulder Minimum 2 Views Left 07/31/21 * XR Shoulder Minimum 2 Views Right 08/15/21 [facility] Evaluation + Plan note Future Appointments Appointment Date:12/25/2021 10:00:00 AM Scheduled Provider: Location:[facility] Appointment Type:DB Diabetic Individual Visit Appointment Date:01/06/2022 03:00:00 PM Scheduled Provider:DENISSE SUTTON Location:[facility] Appointment Type:PC OV Diagnostic Tests Pending * Urine Culture 12/13/21 Future Scheduled Tests Laboratory* A1C Hemoglobin 02/28/21 * Lipid Profile 02/28/21 * Vitamin D Level 02/28/21 * Complete Metabolic Panel 02/28/21 Radiology* MA Mammo Screening Bilateral w/ Julien 09/02/21 * NM Myocardial Spect Rest/Stress 12/12/21 * XR Shoulder Minimum 2 Views Left 07/31/21 * XR Shoulder Minimum 2 Views Right 08/15/21 [facility] Evaluation + Plan note Future Appointments Appointment Date:01/22/2022 07:00:00 AM Scheduled Provider: Location:[facility] Appointment Type:CV Procedure [...] XR Shoulder Minimum 2 Views Right 08/15/21 [facility] Evaluation + Plan note Future Appointments Appointment Date:02/05/2022 07:00:00 AM Scheduled Provider: Location:[facility] Appointment Type:DB Diabetic Individual Visit (AOH) Appointment Date:02/12/2022 04:30:00 PM Scheduled Provider: Location:[facility] Appointment Type:CV OV Appointment Date:03/19/2022 02:30:00 PM Scheduled Provider: Location:[facility] Appointment Type:DB Diabetic Individual Visit (AOH) Future Scheduled Tests Laboratory* Lipid Profile 02/28/21 * Vitamin D Level 02/28/21 Radiology* MA Mammo Screening Bilateral w/ Julien 09/02/21 * XR Shoulder Minimum 2 Views Left 07/31/21 * XR Shoulder Minimum 2 Views Right 08/15/21 [facility] evaluation + Plan note Future Appointments Appointment Date:05/21/2022 10:00:00 AM Scheduled Provider:DENISSE SUTTON Location:[facility] Appointment Type:PC OV Appointment Date:07/02/2022 03:30:00 PM Scheduled Provider: Location:[facility] Appointment Type:DB Diabetic Individual Visit (AOH) Future Scheduled Tests Laboratory* Thyroid Stimulating Hormone 06/12/22 * A1C Hemoglobin 06/12/22 * Complete Blood Count 06/12/22 * Lipid Profile 06/12/22 * Complete Metabolic Panel 06/12/22 Radiology* MA Mammo Screening Bilateral w/ Julien 09/02/21 * XR Shoulder Minimum 2 Views Left 07/31/21 * XR Shoulder Minimum 2 Views Right 08/15/21 [facility] Evaluation + Plan note Future Appointments Appointment Date:07/17/2022 02:00:00 PM Scheduled Provider: Location:[facility] Appointment Type:CV OV Appointment Date:09/01/2022 04:00:00 PM Scheduled Provider:DENISSE SUTTON Location:[facility] Appointment Type:PC OV Appointment Date:10/08/2022 08:30:00 AM Scheduled Provider: Location:[facility] Appointment Type:DB Diabetic Individual Visit (AOH) Future Scheduled Tests Laboratory* Lipid Profile 05/28/22 * Vitamin D Level 05/28/22 * Complete Metabolic Panel 05/28/22 * N-Terminal proBNP 05/28/22 Radiology* MA Mammo Screening Bilateral w/ Julien 09/02/21 * XR Shoulder Minimum 2 Views Left 07/31/21 * XR Shoulder Minimum 2 Views Right 08/15/21 [facility] Evaluation + Plan note Future Appointments Appointment Date:08/11/2022 08:00:00 AM Scheduled Provider: Location:[facility] Appointment Type:CV Procedure - Heart Lab/Hybrid OR Appointment Date:09/03/2022 10:30:00 AM Scheduled Provider: Location:[facility] Appointment Type:CV OV Appointment Date:09/17/2022 02:30:00 PM Scheduled Provider:DENISSE SUTTON Location:[facility] Appointment Type:PC OV Appointment Date:10/08/2022 08:30:00 AM Scheduled Provider: Location:[facility] Appointment Type:DB Diabetic Individual Visit (AOH) Future Scheduled Tests Laboratory* Lipid Profile 05/28/22 * Vitamin D Level 05/28/22 * Complete Metabolic Panel 05/28/22 Radiology* MA Mammo Screening Bilateral w/ Julien 09/02/21 * XR Shoulder Minimum 2 Views Right 08/15/21 [facility] Evaluation + Plan note Future Appointments Appointment Date:09/03/2022 10:30:00 AM Scheduled Provider: Location:[facility] Appointment Type:CV OV Appointment Date:09/17/2022 02:30:00 PM Scheduled Provider:DENISSE SUTTON Location:[facility] Appointment Type:PC OV Appointment Date:10/08/2022 08:30:00 AM Scheduled Provider: Location:[facility] Appointment Type:DB Diabetic Individual Visit (AOH) Future Scheduled Tests Laboratory* Lipid Profile 05/28/22 * Vitamin D Level 05/28/22 * Complete Metabolic Panel 05/28/22 Radiology* MA Mammo Screening Bilateral w/ Julien 09/02/21 * XR Shoulder Minimum 2 Views Right 08/15/21 [facility] Evaluation + Plan note Future Appointments Appointment Date:09/03/2022 10:30:00 AM Scheduled Provider: Location:[facility] Appointment Type:CV OV Appointment Date:09/17/2022 02:30:00 PM Scheduled Provider:DENISSE SUTTON Location:[facility] Appointment Type:PC OV Appointment Date:10/08/2022 08:30:00 AM Scheduled Provider: Location:[facility] Appointment Type:DB Diabetic Individual Visit (AOH) Future Scheduled Tests Laboratory* Lipid Profile 05/28/22 * Vitamin D Level 05/28/22 * Complete Metabolic Panel 05/28/22 Radiology* MA Mammo Screening Bilateral w/ Julien 09/02/21 [facility] Evaluation + Plan note Future Appointments Appointment Date:12/30/2022 03:00:00 PM Scheduled Provider:DENISSE SUTTON Location:[facility] Appointment Type: Wellness Medicare Appointment Date:01/09/2023 03:30:00 PM Scheduled Provider: Location:[facility] Appointment Type:DB Diabetic Individual Visit (AOH) Future Scheduled Tests Laboratory* Lipid Profile 05/28/22 * Vitamin D Level 05/28/22 * Complete Metabolic Panel 05/28/22 [facility] Evaluation + Plan note Future Appointments Appointment Date:02/09/2023 03:30:00 PM Scheduled Provider: Location:[facility] Appointment Type:DB Diabetic Individual Visit (AOH) Appointment Date:02/24/2023 03:30:00 PM Scheduled Provider: Location:[facility] Appointment Type:CV OV Appointment Date:03/10/2023 03:30:00 PM Scheduled Provider: Location:[facility] Appointment Type:MA Mammogram Screening Bilateral w/ Julien Appointment Date:04/22/2023 07:30:00 AM Scheduled Provider:DENISSE SUTTON Location:[facility] Appointment Type:PC OV Future Scheduled Tests Laboratory* A1C Hemoglobin 05/02/23 * Lipid Profile 05/02/23 * Lipid Profile 05/28/22 * Vitamin D Level 05/02/23 * Vitamin D Level 05/28/22 * Complete Metabolic Panel 05/02/23 * Complete Metabolic Panel 05/28/22 Radiology* MA Mammo Screening Bilateral w/ Julien 03/10/23 [facility] Evaluation + Plan note Future Appointments Appointment Date:05/12/2023 04:15:00 PM Scheduled Provider: Location:[facility] Appointment Type:CV OV Appointment Date:06/03/2023 02:00:00 PM Scheduled Provider:DENISSE SUTTON Location:[facility] Appointment Type:PC OV Follow Up Appointment Date:06/08/2023 03:30:00 PM Scheduled Provider: Location:[facility] Appointment Type:MEDS [...] MA Mammo Screening Bilateral w/ Julien 03/11/23 [facility] Evaluation + Plan note Future Appointments Appointment Date:06/03/2023 02:00:00 PM Scheduled Provider:DENISSE SUTTON Location:[facility] Appointment Type:PC OV Follow Up Appointment Date:06/08/2023 03:30:00 PM Scheduled Provider: Location:[facility] Appointment Type:MEDS - Diabetic Individual Visit Future [...] MA Mammo Screening Bilateral w/ Julien 03/11/23 [facility] Evaluation + Plan note Future Appointments Appointment Date:09/07/2023 03:30:00 PM Scheduled Provider: Location:[facility] Appointment Type:MEDS - Diabetic Individual Visit Appointment Date:10/07/2023 09:00:00 AM Scheduled Provider: Location:[facility] Appointment Type:IR Central Venous Cath Remove W/OPump Appointment Date:10/13/2023 03:30:00 PM Scheduled Provider:DENISSE SUTTON Location:[facility] Appointment Type:PC OV Follow Up Appointment Date:10/27/2023 [...] MA Mammo Screening Bilateral w/ Julien 03/11/23 [facility] Evaluation + Plan note Future Appointments Appointment Date:10/13/2023 03:30:00 PM Scheduled Provider:DENISSE SUTTON Location:[facility] Appointment Type:PC OV Follow Up Appointment Date:10/27/2023 03:15:00 PM Scheduled Provider: Location:[facility] Appointment Type:CV OV Appointment Date:01/11/2024 03:00:00 PM Scheduled Provider: Location:[facility] Appointment Type:MEDS - Diabetic Individual Visit Future Scheduled Tests Laboratory* A1C Hemoglobin 05/02/23 * Lipid Profile 05/02/23 * Vitamin D Level 04/29/23 * Vitamin D Level 05/02/23 * Complete Metabolic Panel 05/02/23 Radiology* MA Mammo Screening Bilateral w/ Julien 03/11/23 * MA Mammo Screening Bilateral w/ Julien 03/11/23 [facility] Evaluation + Plan note Future Appointments Appointment Date:01/12/2024 03:00:00 PM Scheduled Provider:DENISSE SUTTON Location:[facility] Appointment Type: Wellness Medicare Appointment Date:01/12/2024 03:30:00 PM Scheduled Provider: Location:[facility] Appointment Type:MEDS [...] 03/11/23 * XR Spine Lumbar AP/LAT/FLEX/EXT 10/13/23 [facility] Evaluation + Plan note Future Appointments Appointment Date:02/16/2024 03:00:00 PM Scheduled Provider:FLORY KELLEY MD Location: [facility] Appointment Type: INSPECTOR SALVAGE Appointment Date:04/13/2024 03:30:00 PM Scheduled Provider:DENISSE SUTTON Location:[facility] Appointment Type:PC OV Appointment Date:07/14/2024 03:30:00 PM Scheduled Provider: Location:[facility] Appointment Type:MEDS - Diabetic Individual Visit Future [...] 03/11/23 * XR Spine Lumbar AP/LAT/FLEX/EXT 10/13/23 [facility] Evaluation + Plan note Future Appointments Appointment Date:04/28/2024 01:30:00 PM Scheduled Provider:RUIZ REGALADO Location: [facility] Appointment Type: INSPECTOR SALVAGE Appointment Date:05/03/2024 03:45:00 PM Scheduled Provider:EJ CROW Location:[facility] Appointment Type:CV OV Appointment Date:07/12/2024 04:00:00 PM Scheduled Provider:DENISSE SUTTON Location:[facility] Appointment Type:PC OV Appointment Date:07/14/2024 03:30:00 PM Scheduled Provider: Location:[facility] Appointment Type:MEDS - Diabetic Individual Visit Future Scheduled Tests Laboratory* A1C Hemoglobin 05/02/23 * Lipid Profile 05/02/23 * Lipid Profile 04/13/24 * Vitamin D Level 04/29/23 * Vitamin D Level 05/02/23 * Complete Metabolic Panel 05/02/23 * Complete Metabolic Panel 04/13/24 Radiology* XR Spine Lumbar AP/LAT/FLEX/EXT 10/13/23 [facility] Evaluation + Plan note Future Appointments Appointment Date:10/13/2024 04:00:00 PM Scheduled Provider: Location:[facility] Appointment Type:MEDS - Diabetic Individual Visit Appointment Date:11/11/2024 03:30:00 PM Scheduled Provider: Location:[facility] Appointment Type:MA Mammogram Screening Bilateral w/ Julien Appointment Date:11/22/2024 04:00:00 PM Scheduled Provider:DENISSE SUTTON Location:[facility] Appointment Type:PC OV Future Scheduled Tests Laboratory* Lipid Profile 04/13/24 * Complete Metabolic Panel 04/13/24 Radiology* MA Mammo Screening Bilateral w/ Julien 11/11/24 * XR Spine Lumbar AP/LAT/FLEX/EXT 10/13/23 [facility] Evaluation + Plan note Future Appointments Appointment Date:10/13/2024 04:00:00 PM Scheduled Provider: Location:[facility] Appointment Type:MEDS - Diabetic Individual Visit Appointment Date:10/25/2024 02:45:00 PM Scheduled Provider:EJ CROW Location:[facility] Appointment Type:CV OV Appointment Date:11/11/2024 03:30:00 PM Scheduled Provider: Location:[facility] Appointment Type:MA Mammogram Screening Bilateral w/ Julien Appointment Date:11/22/2024 04:00:00 PM Scheduled Provider:DENISSE SUTTON Location:[facility] Appointment Type:PC OV Future Scheduled Tests Laboratory* Lipid Profile 04/13/24 * Complete Metabolic Panel 04/13/24 Radiology* MA Mammo Screening Bilateral w/ Julien 11/11/24 * XR Spine Lumbar AP/LAT/FLEX/EXT 10/13/23 [facility] Evaluation + Plan note Future Appointments Appointment Date:11/11/2024 03:30:00 PM Scheduled Provider: Location:[facility] Appointment Type:MA Mammogram Screening Bilateral w/ Julien Appointment Date:11/17/2024 04:00:00 PM Scheduled Provider: Location:[facility] Appointment Type:MEDS - Diabetic Individual Visit Appointment Date:11/22/2024 04:00:00 PM Scheduled Provider:DENISSE SUTTON Location:[facility] Appointment Type:PC OV Future Scheduled Tests Laboratory* Lipid Profile 04/13/24 * Complete Metabolic Panel 04/13/24 Radiology* MA Mammo Screening Bilateral w/ Julien 11/11/24 [facility] evaluation + Plan note Future Appointments Appointment Date:11/11/2024 03:30:00 PM Scheduled Provider: Location:[facility] Appointment Type:MA Mammogram Screening Bilateral w/ Julien Appointment Date:11/17/2024 04:00:00 PM Scheduled Provider: Location:[facility] Appointment Type:MEDS - Diabetic Individual Visit Appointment Date:11/22/2024 04:00:00 PM Scheduled Provider:DENISSE SUTTON Location:[facility] Appointment Type:PC OV Diagnostic Tests Pending * Blood Culture (bacterial) 11/08/24 * Blood Culture (bacterial) 11/08/24 Future Scheduled Tests Laboratory* Lipid Profile 04/13/24 * Complete Metabolic Panel 04/13/24 Radiology* MA Mammo Screening Bilateral w/ Julien 11/11/24 [facility] W-locatealuation + Plan note Future Appointments Appointment Date:01/16/2025 03:00:00 PM Scheduled Provider:DENISSE SUTTON Location:[facility] Appointment Type:PC OV Follow Up Appointment Date:02/20/2025 03:30:00 PM Scheduled Provider: Location:[facility] Appointment Type:MEDS - Diabetic Individual Visit Appointment Date:02/21/2025 03:30:00 PM Scheduled Provider:DENISSE SUTTON Location:[facility] Appointment Type:PC OV Future Scheduled Tests Laboratory* Lipid Profile 04/13/24 * Complete Metabolic Panel 04/13/24 Radiology* XR Chest 2 Views (PA & Lateral) 11/22/24 [facility] evaluation + Plan note Future Appointments Appointment Date:02/20/2025 03:30:00 PM Scheduled Provider: Location:[facility] Appointment Type:MEDS - Diabetic Individual Visit Appointment Date:02/21/2025 03:30:00 PM Scheduled Provider:DENISSE SUTTON Location:[facility] Appointment Type:PC OV Future Scheduled Tests Laboratory* Lipid Profile 04/13/24 * Complete Metabolic Panel 04/13/24 Radiology* XR Chest 2 Views (PA & Lateral) 11/22/24 [facility] Evaluation note* Diagnosis Onset Date Resolution Status Closed head injury acute Community acquired pneumonia acute Concussion acute Contusion of face, scalp and neck acute ESRD (end stage renal disease) on dialysis acute History of CVA (cerebrovascular accident) acute Hypoxia acute History of coronary artery stent placement June, chronic Hyperlipidemia chronic Hypertension [facility] Work Phone: Evaluation note* Diagnosis Onset Date Resolution Status Closed head injury acute Concussion acute Contusion of face, scalp and neck acute ESRD (end stage renal disease) on dialysis acute History of CVA (cerebrovascular accident) acute Hypoxia acute History of coronary artery stent placement June, chronic Hyperlipidemia chronic Hypertension chronic Acute alteration in mental status acute [facility] Work Phone: Evaluation note* Diagnosis Onset Date Resolution Status ESRD (end stage renal disease) on dialysis [facility] Work Phone: Evaluation note* Diagnosis Onset Date Resolution Status ESRD (end stage renal disease) on dialysis chronic ESRD (end stage renal disease) on dialysis [facility] Work Phone: evaluation note* Diagnosis Onset Date Resolution Status ESRD (end stage renal disease) on dialysis chronic ESRD (end stage renal disease) on dialysis chronic ESRD (end stage renal disease) on dialysis chronic ESRD (end stage renal disease) on dialysis [facility] Work Phone: History and physical note Author Cipriano Baldwin [facility] Note Date/Time October 09, 2024 1:15 pm [facility] Medical Records Department [address] [place] [address] H&P Exam - Hospitalist 10/09/24 1305 MR#: [id number] Acct: [id number] Name: ZAYDA DAVIS Rep #:[id number] : 1965 58 From: Cipriano Baldwin DO PCP: [facility] Mas Status:REG E R Location: ED HPI - General General Date of Service: 10/09/24 Chief Complaint: Shortness of breath HPI Narrative ZAYDA DAVIS, is a 58 F who presents with shortness of breath. This is a 58-year-old female with history of end-stage renal disease on dialysis every Thursday. Has been short of breath for the past 2 days. Having a cough, also as well has ear pain feel that she has a ear infection. Presented to the emergency room and had a chest x-ray showed possible pneumonia patient received ceftriaxone azithromycin. They ambulated her and she dropped on 85% on room air, patient is not on oxygen at home. The hospital service was contacted for admission. Patient denies any recent weight change nor any lower extremity edema. [facility] Medical History Anemia of chronic disease ESRD (end stage renal disease) History of diabetes mellitus Chronic kidney disease with end stage renal disease on dialysis due to type 2 diabetes mellitus Hypoxia ESRD (end stage renal disease) on dialysis Dependence on renal dialysis Easy bruising Dietary restriction History of edema Hx of cardiovascular stress test Hx of echocardiogram Cardiology follow-up encounter TIA (transient ischemic attack) Acute alteration in mental status Community acquired pneumonia ESRD (end stage renal disease) on dialysis Wears glasses Insulin dependent diabetes mellitus Low iron Former smoker Cardiology follow-up encounter Chronic heart failure with preserved ejection fraction (HFpEF) History of non-ST elevation myocardial infarction (NSTEMI) (01/20/21) Debility COVID-19 (01/20/21) Inability to walk Generalized weakness Non-STEMI (non-ST elevated myocardial infarction) (01/20/21) Ischemic cerebrovascular accident (CVA) (04/2018) Respiratory insufficiency Hypoxia Anxiety Bilateral carotid bruits Hyperlipidemia Malignant hypertension Headache Type 2 diabetes mellitus without complication Essential hypertension Atherosclerosis of coronary artery of [place] heart without angina pectoris GERD (gastroesophageal reflux disease) Depression History of renal calculi History of cholelithiasis Morbid obesity Acute renal injury due to circulatory failure Home Medications ?Medication ?Instructions ?Recorded ?Last Taken ?Type aspirin 81 mg chewable tablet 81 mg PO DAILY@0800 HEAR T HEALTH 07/15/18 04/26/23 History atorvastatin 80 mg tablet 80 mg PO QHS CHOLESTEROL 11/1504/26/23 History torsemide 100 mg tablet 50 mg PO BID diuretic 04/26/23 History melatonin 5 mg tablet 5 mg PO HS PRN Sleep 2 1 01/19/21 History carvedilol 12.5 mg tablet 6.25 mg PO BID blood pressur e 09/20/20 04/27/23 History acetaminophen 325 mg tablet 650 mg (2 x 325 mg) PO Q6H PRN PRN 10/03/20 Unknown Rx (Tylenol) Pain 1-10 Or Fever #0 tabs amlodipine 10 mg tablet 10 mg PO DAILY blood pressur e 01/20/21 04/27/23 History insulin glargine U-300 conc [address] diabetes 03/21/21 04/26/23 History unit/mL (1.5 mL) subcutaneous pen (Toujeo SoloStar U-300 Insulin) gabapentin 300 mg capsule 300 mg PO TID PRN NEUROPATHY 12/10/22 Unknown History allopurinol 100 mg tablet 100 mg PO DAILY 01/13/23 History cholecalciferol (vitamin D3) 50 50 mcg PO DAILY 04/26/23 History mcg (2,000 unit) capsule ezetimibe 10 mg tablet 10 mg PO QHS 01/13/23 History vitamin B complex-vitamin C-folic 1 tab PO DAILY 01/1304/26/23 History acid 0.8 mg tablet (Nephro-Todd) nystatin 100,000 unit/gram topical 1 applic topical BI D 14 days #1 11/21/23 Unknown Rx powder (Nyamy) BOTTLE hydralazine 100 mg tablet 100 mg PO TID 30 days #0 tab s 12/17/23 Unknown Rx insulin lispro 100 unit/mL See Protocol subcut ACHS #0 mL 12/17/23 Unknown Rx subcutaneous pen (Humalog KwikPen (U-100) Insulin) blood sugar diagnostic (OneTouch 07/31/24 Unknown His tory Verio test strips) blood-glucose meter (OneTouch 07/31/24 Unknown Histor y Verio Flex Meter) lancets 33 gauge (OneTouch Delica 07/31/24 Unknown Hi story Plus Lancet) latanoprost 0.005 % eye drops 1 drp ophthalmic (eye) Q HS 07/31/24 Unknown History ondansetron 4 mg disintegrating 4 mg PO Q6H PRN PRN na usea and 05/04/25 Unknown History tablet vomiting venlafaxine besylate 112.5 mg 112.5 mg PO DAILY Unknown History tablet,extended release 24 hr gabapentin 100 mg capsule 100 mg PO TID 10/09/24 Unkno wn History ropinirole 0.25 mg tablet 0.25 mg PO BID 10/09/24 Unkn own History Allergy/AdvReac Type Severity Reaction Status Date / Time No Known Allergies Allergy Verified 07/31/24 15:08 Family History Mother Diabetes Heart disease Hypertension Father Hypertension Heart disease Brother Heart disease Hypertension Sister Heart disease Diabetes Surgical History History of surgery History of arteriovenostomy for renal dialysis (~03/2021) History of History of appendectomy History of cholecystectomy History of coronary artery stent placement (06/2016) History of left heart catheterization (05/27/21) Social History household members: family Smoking Status: Former smoker alcohol intake: never substance use type: does not use ROS ROS Narrative All review of systems were negative except as mentioned above in the history of present illness and the other review of systems. Vital Signs Vital Signs Vital Signs: 10/09/24 08:24 10/09/24 08:31 10/09/24 09:23 Temperature 36.8 C 36.9 C Temperature Source Oral Oral Pulse Rate 70 Respiratory Rate 67 H 14 Respiratory Effort Normal Respiratory Depth Normal Respiratory Pattern Normal Blood Pressure 152/69 H 168/80 H Blood Pressure Mean 96 109 Pulse Ox 95 98 Oxygen Delivery Method Room Air Nasal Cannula Nasal Cannula Oxygen Flow Rate (L/min) 2 10/09/24 09:33 10/09/24 10:00 10/09/24 11:00 Temperature 37.1 C 36.9 C Temperature Source Oral Oral Pulse Rate 69 70 Respiratory Rate 18 20 H Respiratory Effort Respiratory Depth Respiratory Pattern Blood Pressure 155/79 H 136/77 H Blood Pressure Mean 104 96 Pulse Ox 97 99 99 Oxygen Delivery Method Nasal Cannula Nasal Cannula Nasal Cannula Oxygen Flow Rate (L/min) 2 2 2 10/09/24 12:00 Temperature Temperature Source Pulse Rate 76 Respiratory Rate 16 Respiratory Effort Respiratory Depth Respiratory Pattern Blood Pressure 136/77 H Blood Pressure Mean 96 Pulse Ox 98 Oxygen Delivery Method Nasal Cannula Oxygen Flow Rate (L/min) 2 Weight Weight: 113.7 kg Body Mass Index (BMI) 47.3 Physical Exam Narrative POCUS: Indication is for dyspnea. Using limited FAST exam, visualize the IVC I did show that it was collapsible with inspiration. Heart was visually but was rather obscured by the abdomen so was not a good view of that but grossly appeared normal. Const alert and no apparent distress HEENT normocephalic and head/scalp atraumatic Resp normal respiratory effort and no retractions Resp Narrative: Bibasilar crackles Cardio regular rate, regular rhythm, S1 normal heart sound and S2 normal heart sound GI normal to inspection, nondistended, normoactive bowel sounds, soft to palpation,non-tender and non-distended GI Narrative: Obese. Extremity normal to inspection Neuro Sensorium / Orientation: awake, alert, oriented to person, oriented to place andoriented to time Psych affect normal Results Lab / Micro Data 10/09/24 09:18 10/09/24 09:18 Labs: Laboratory Results - last 24 hr 10/09/24 09:18: WBC 6.1, RBC 3.26 L, Hgb 10.4 L, Hct 31.3 L, MCV 96.0, MCH 31.9,MCHC 33.2, RDW Std Deviation 55.8 H, RDW Coeff of [place] 15.9 H, Plt Count 153, MPV12.7 H, Immature Gran % (Auto) 0.500, Neut % (Auto) 68.0, Lymph % (Auto) 8.5 L, [facility] % (Auto) 16.2 H, Eos % (Auto) 6.5 H, Baso % (Auto) 0.3, Absolute Neuts (auto) 4.2, Absolute Lymphs (auto) 0.52 L, Nucleated RBC % 0, Sodium 136, Potassium 4.5, Chloride 95 L, Carbon Dioxide 29.0, Anion Gap 12, BUN 34 H, Creatinine 5.18 H, Estim Creat Clear Calc 13.86 L, Est GFR (MDRD) Non-Af 9 L, BUN/Creatinine Ratio 6.6 L, Glucose 104 H, Calcium 8.8 Micro: Microbiology 10/09/24 09:15 Mucosa - Nose SARS-CoV-2, Influenza & RSV (PCR) - Final Imaging Radiology Impression Chest X-Ray 10/09/24 09:50 IMPRESSION: 1. Right perihilar opacities, which may represent pneumonitis/pneumonia. 2. Stable mild cardiomegaly. Reading [facility] Assessment & Plan Assessment/Plan (1) Pneumonia: PLAN: Suspect pneumococcal Patient received azithromycin and ceftriaxone emergency room. Will continue on the floor. Check urinary antigens for strep and Legionella. Check sputum culture. Pulmonary toilet. Though despite the patient not having a fever nor leukocytosis, her post POCUS and physical exam not consistent with volume overload at this time. Therefore the patient feel has pneumonia. Patient did require oxygen in the emergency room with ambulation therefore cannot be discharged home. Will continue to monitor PLAN: Plan Chronic conditions * End-stage renal disease: On hemodialysis every Thursday, and Thursday. If the patient requires being hospitalized through Thursday, will consult nephrology to continue with the dialysis. No need for urgent dialysis at this time. * Diabetes mellitus type 2: Continue with prandial as well as basal insulin. Add sliding scale insulin. * Glaucoma: Continue latanoprost * Obesity class III: Complicates care and recovery. VTE prophylaxis with subcu heparin CODE STATUS: Addressed with the patient. Patient wishes to be full code Charges/Coding Visit Charges Inpatient E&M: 43647 Init Hosp L3 10/09/24 1315 <Electronically signed by Cipriano Baldwin DO> Cosigner Signature (if applicable): CC: TERESA Sutton; Dr. Cipriano Baldwin DO~ Signed [facility] Work Phone: Hospital course Narrative No data available for this section [facility] Hospital Discharge instructions No data available for this section [facility] Note* LARRY BARRERA MD: SIGN, VERIFY Event Display: EKG [ED AO] - CV Authored Date: [facility] Note* NATE CROW MD: SIGN, VERIFY Event Display: Cardiac Catheterization -CV Authored Date: [id number] [facility] Progress note No data available for this section [facility] Reason for referral (narrative)No reason for referral information available[facility] Work Phone: Summary note* JamesMICHAEL Sweetie Uche: PERFORM Event Display: Patient Summary Documents Authored Date: [id number] [facility] Summary Purpose Family History No Family [...] No July 12, 2022 12:59pm Power of Manager Instrumentation No July 12 12:59pm Advance Directive Response Recorded Date/ Time Advance Directives No April 10:11am Living Will No July 12, 2022 5:25pm Power of Manager Instrumentation No July 12 5:25pm Advance Directive Response Recorded Date/ Time Advance Directives No April 10:11am Living Will No July 22, 2022 7:01pm Power of Manager Instrumentation No July 22 7:01pm Advance Directive Response Recorded Date/ Time Advance Directives No January 22, 2023 7:10am Living Will No January 22 7:10am Power of Manager Instrumentation No January 22, 2023 7:10am Advance Directive Response Recorded Date/ Time Advance Directives No January 22, 2023 6:10am Living Will No April 23 8:29am Power of Manager Instrumentation No April 23, 2023 8:29am Advance Directive Response Recorded Date/ Time Advance Directives No January 22, 2023 7:10am Living Will No April 23 9:29am Power of Manager Instrumentation No April 23, 2023 9:29am Advance Directive Response Recorded Date/ Time Do you have a Healthcare Power of Manager Instrumentation? No October 09, 2024 8:28am Do you have a Healthcare Power of Manager Instrumentation? No July 31, 2024 9:54pm Name of Medical Power of Manager Instrumentation JuneJuly 31, 2024 3:59pm Advance Directives No January 22, 2023 7:10am Advance Directive Response Recorded Date/ Time Do you have a Healthcare Power of Manager Instrumentation? No October 09, 2024 2:22pm Do you have a Healthcare Power of Manager Instrumentation? No July 31, 2024 9:54pm Name of Medical Power of Manager Instrumentation JuneJuly 31, 2024 3:59pm Advance Directives No January 22, 2023 7:10am Chief Complaint and Reason for Visit Chief [...] T pre op Atherosclerotic heart disease of [place] Reason for Visit ESRD (end stage gerald l disease) on dialysis Chief Complaint CONSULT-AVF PLACEMEN T pre op Atherosclerotic heart disease of [place] N18.6 RIGHT ARM FISTULOGRAM/REGIONAL BLOCK/CATH L [...] stage renal disease) on dialysis Chief Complaint Admit Date ACUTE HYPOXIA, ACUTE VIRAL SYNDROME July 31, 2024 8:34pm ACUTE HYPOXIA, ACUTE VIRAL SYNDROME August 01, 2024 10:44am ACUTE HYPOXIA, ACUTE VIRAL SYNDROME August 02, 2024 3:05pm ACUTE HYPOXIA, ACUTE VIRAL SYNDROME August 04, 2024 6:14pm PNEUMONIA October 09, 2024 12:5 8pm shortness of breath October 09, 2024 1:05 pm Reason for Visit Admit Date Nausea & vomiting July 31, 2024 8:34pm Pulmonary edema July 31, 2024 8:34pm Anemia of chronic disease July 31, 2024 8:34pm Chronic kidney disease with end stage renal disease on dialysis due to type July 31, 2024 8:34pm ESRD (end stage renal disease) July 31, 2024 8:34pm History of diabetes mellitus July 31 8:34pm Hypoxia July 31, 2024 8:34pm Hypoxia October 09, 2024 12:5 8pm Pneumonia October 09, 2024 12:5 8pm Essential hypertension October 09, 2024 1 2:58pm Chief Complaint Admit Date ACUTE HYPOXIA, ACUTE VIRAL SYNDROME July 31, 2024 8:34pm ACUTE HYPOXIA, ACUTE VIRAL SYNDROME August 01, 2024 10:44am ACUTE HYPOXIA, ACUTE VIRAL SYNDROME August 02, 2024 3:05pm ACUTE HYPOXIA, ACUTE VIRAL SYNDROME August 04, 2024 6:14pm shortness of breath October 09, 2024 1:05 pm Pneumonia October 10, 2024 7:54 am PNEUMONIA October 10, 2024 11:1 5am Pneumonia October 11, 2024 7:34 am Reason for Visit Admit Date Nausea & vomiting July 31, 2024 8:34pm Pulmonary edema July 31, 2024 8:34pm Anemia of chronic disease July 31, 2024 8:34pm Chronic kidney disease with end stage renal disease on dialysis due to type July 31, 2024 8:34pm ESRD (end stage renal disease) July 31, 2024 8:34pm History of diabetes mellitus July 31 8:34pm Hypoxia July 31, 2024 8:34pm Hypoxia October 10, 2024 11:1 5am Pneumonia October 10, 2024 11:1 5am Essential hypertension October 10, 2024 1 1:15am Additional Source Comments INFORMATION SOURCE (unrecogn ized section and content) DATE CREATED AUTHOR 06/16/2018 [facility] DATE CREATED AUTHOR AUTHOR'S ORGANIZ ATION 04/08/2019 [facility] DATE CREATED AUTHOR AUTHOR'S ORGANIZ ATION 04/19/2019 [facility] [employer] [facility] DATE CREATED AUTHOR AUTHOR'S ORGANIZ ATION 08/31/2021 [place] DATE CREATED AUTHOR AUTHOR'S ORGANIZ ATION 09/28/2021 [facility] DATE CREATED AUTHOR AUTHOR'S ORGANIZ ATION 09/11/2023 [facility] DATE CREATED AUTHOR AUTHOR'S ORGANIZ ATION 11/25/2023 [facility] ([place]) DATE CREATED AUTHOR AUTHOR'S ORGANIZ ATION 10/28/2024 [facility] DATE CREATED AUTHOR AUTHOR'S ORGANIZ ATION 01/07/2025 [facility] DATE CREATED AUTHOR AUTHOR'S ORGANIZ ATION 01/20/2025 [facility] Care Team (unrecognized sect ion and content) Team Status: Active Member Role Status Dates Denisse Sutton INSPECTOR SALVAGE, INSPECTOR SALVAGE-C Family Provider Active Denisse Sutton INSPECTOR SALVAGE, INSPECTOR SALVAGE-C Primary Care Provider Active Team Status: Active Member Role Status Dates Denisse Sutton INSPECTOR SALVAGE, INSPECTOR SALVAGE-C Primary Care Provider Active Dr. Samm Talley MD Emergency Provider Active Dr. Patsy Wyman DO Admit Provider, Attending Pro vider Active Team Status: Active Member Role Status Dates Denisse Sutton INSPECTOR SALVAGE, INSPECTOR SALVAGE-C Primary Care Provider Active Dr. Samm Talley MD Emergency Provider Active Dr. Patsy Wyman DO Admit Provider, Attending Provider, Other Provider Active Team Status: Active Member Role Status Dates Denisse Sutton INSPECTOR SALVAGE, INSPECTOR SALVAGE-C Primary Care Provider Active Dr. Samm Talley MD Emergency Provider Active Dr. Patsy Wyman DO Admit Provider, Attending Provider, Other Provider Active Dr. Sanaz Gomez MD Other Provider Active Team Status: Active Member Role Status Dates Denisse Sutton INSPECTOR SALVAGE, INSPECTOR SALVAGE-C Primary Care Provider Active Dr. Samm Talley MD Emergency Provider Active Dr. Patsy Wyman DO Admit Provider, Other Provide r Active Dr. Sanaz Gomez MD Other Provider Active Dr. Mahamed Dunn MD Attending Provider, Other Provi darron Active Team Status: Inactive Member Role Status Dates Denisse Sutton INSPECTOR SALVAGE, INSPECTOR SALVAGE-C Primary Care Provider Active Dr. Samm Talley MD Emergency Provider Active Dr. Patsy Wyman DO Admit Provider, Other Provide r Active Dr. Sanaz Gomez MD Other Provider Active Dr. Mahamed Dunn MD Attending Provider Active Team Status: Active Member Role Status Dates Denisse Sutton INSPECTOR SALVAGE, INSPECTOR SALVAGE-C Primary Care Provider Active Dr. Patsy Montenegro MD Emergency Provider Active Dr. Patsy Wyman DO Admit Provider, Attending Provider, Other Provider Active Team Status: Active Member Role Status Dates Denisse Sutton INSPECTOR SALVAGE, INSPECTOR SALVAGE-C Primary Care Provider Active Dr. Jalen Romano MD Attending Provider Active Team Status: Inactive Member Role Status Dates Denisse Sutton INSPECTOR SALVAGE, INSPECTOR SALVAGE-C Primary Care Provider Active Dr. Patsy Montenegro MD Emergency Provider Active Dr. Patsy Wyman DO Admit Provider, Attending Pro vider Active Team Status: Inactive Member Role Status Dates Denisse Sutton INSPECTOR SALVAGE, INSPECTOR SALVAGE-C Primary Care Provider, Referri ng Provider Active Dr. Cipriano Trujillo MD Attending Provider Active Team Status: Active Member Role Status Dates Denisse Sutton INSPECTOR SALVAGE, INSPECTOR SALVAGE-C Primary Care Provider Active Dr. Cipriano Trujillo MD Attending Provider Active Team Status: Inactive Member Role Status Dates Denisse Sutton INSPECTOR SALVAGE, INSPECTOR SALVAGE-C Primary Care Provider Active Dr. Cipriano Trujillo MD Attending Provider, Referring Pro vider Active Team Status: Active Member Role Status Dates Denisse Sutton INSPECTOR SALVAGE, INSPECTOR SALVAGE-C Primary Care Provider Active Dr. Cipriano Trujillo MD Attending Provider, Referring Provider, Other Provider Active Team Status: Inactive Member Role Status Dates Denisse Sutton INSPECTOR SALVAGE, INSPECTOR SALVAGE-C Primary Care Provider, Referri ng Provider Active MARLY Shirley Attending Provider Active Team Status: Active Member Role Status Dates Denisse Sutton INSPECTOR SALVAGE, INSPECTOR SALVAGE-C Primary Care Provider Active Dr. Cipriano Trujillo MD Attending Provider, Referring Pro vider Active Team Status: Inactive Member Role Status Dates Denisse Sutton INSPECTOR SALVAGE, INSPECTOR SALVAGE-C Primary Care Provider, Referri ng Provider Active Dr. 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 Scott Saldana MD Emergency Provider Active S tart: July 31, 2024 End: August 02, 2024 Dr. Georgina Gill MD Admit Provider Active St art: July 31, 2024 End: August 02, 2024 Dr. Georgina Gill MD Other Provider Active St art: July 31, 2024 End: August 02, 2024 Dr. Ketty Granger MD Other Provider Active Start: July 31, 2024 End: August 02, 2024 Dr. Sondra Dumont , Attending Provider Active S tart: July 31, 2024 End: August 02, 2024 Dr. Eboni Polanco MD Other Provider Active St art: July 31, 2024 End: August 02, 2024 Team Status: Active Member Role/Relationship Status Dates Denisse Sutton NP, INSPECTOR SALVAGE-C Primary Care Provider Active Start: August 01, 2024 Dr. Scott Saldana MD Emergency Provider Active S tart: August 01, 2024 Dr. Georgina Gill MD Admit Provider Active St art: August 01, 2024 Dr. Georgina Gill MD Other Provider Active St art: August 01, 2024 Dr. Eboni Polanco MD Attending Provider Active Start: August 01, 2024 Dr. Eboni Polanco MD Other Provider Active St art: August 01, 2024 Dr. Ketty Granger MD Other Provider Active Start: August 01, 2024 Team Status: Active Member Role/Relationship Status Dates Denisse Sutton NP, INSPECTOR SALVAGE-C Primary Care Provider Active Start: August 02, 2024 Dr. Scott Saldana MD Emergency Provider Active S tart: August 02, 2024 Dr. Georgina Gill MD Admit Provider Active St art: August 02, 2024 Dr. Georgina Gill MD Other Provider Active St art: August 02, 2024 Dr. Ketty Granger MD Other Provider Active Start: August 02, 2024 Dr. Sondra Dumont DO Attending Provider Active S tart: August 02, 2024 Dr. Sondra Dumont DO Other Provider Active Start : August 02, 2024 Dr. Eboni Polanco MD Other Provider Active St art: August 02, 2024 Team Status: Active Member Role/Relationship Status Dates Denisse Sutton NP, INSPECTOR SALVAGE-C Primary Care Provider Active Start: August 04, 2024 Dr. Scott Saldana MD Emergency Provider Active S tart: August 04, 2024 Dr. Georgina Gill MD Admit Provider Active St art: August 04, 2024 Dr. Georgina Gill MD Other Provider Active St art: August 04, 2024 Dr. Ketty Granger MD Other Provider Active Start: August 04, 2024 Dr. Sondra Dumont DO Attending Provider Active S tart: August 04, 2024 Dr. Sondra Dumont , Other Provider Active Start : August 04, 2024 Dr. Eboni Polanco MD Other Provider Active St art: August 04, 2024 Team Status: Active Member Role/Relationship Status Dates Denisse Sutton INSPECTOR SALVAGE, INSPECTOR SALVAGE-C Primary Care Provider Active Start: October 09, 2024 Dr. Cipriano Lundberg DO Emergency Provider Active Start: October 09, 2024 Dr. Cipriano Baldwin DO Admit Provider Active Star t: October 09, 2024 Dr. Cipriano Baldwin DO Attending Provider Active Start: October 09, 2024 Dr. Cipriano Baldwin DO Referring Provider Active Start: October 09, 2024 Team Status: Active Member Role/Relationship Status Dates Denisse Sutton INSPECTOR SALVAGE, INSPECTOR SALVAGE-C Primary Care Provider Active Start: October 09, 2024 Dr. Cipriano Lundberg DO Emergency Provider Active Start: October 09, 2024 Dr. Cipriano Baldwin DO Attending Provider Active Start: October 09, 2024 Team Status: Active Member Role/Relationship Status Dates Denisse Sutton INSPECTOR SALVAGE, INSPECTOR SALVAGE-C Primary Care Provider Active Start: October 09, 2024 Dr. Cipriano Lundberg DO Emergency Provider Active Start: October 09, 2024 Dr. Cipriano Baldwin DO Attending Provider Active Start: October 09, 2024 Team Status: Active Member Role/Relationship Status Dates Denisse Sutton INSPECTOR SALVAGE, INSPECTOR SALVAGE-C Primary Care Provider Active Start: October 10, 2024 Dr. Cipriano Lundberg DO Emergency Provider Active Start: October 10, 2024 Dr. Cipriano Baldwin DO Admit Provider Active Star t: October 10, 2024 Dr. Cipriano Baldwin DO Attending Provider Active Start: October 10, 2024 Dr. Cipriano Baldwin DO Referring Provider Active Start: October 10, 2024 Dr. Cipriano Baldwin DO Other Provider Active Star t: October 10, 2024 Team Status: Inactive Member Role/Relationship Status Dates Denisse Sutton INSPECTOR SALVAGE, INSPECTOR SALVAGE-C Primary Care Provider Active Start: October 10, 2024 End: October 11, 2024 Dr. Cipriano Lundberg DO Emergency Provider Active Start: October 10, 2024 End: October 11, 2024 Dr. Cipriano Baldwin DO Admit Provider Active Star t: October 10, 2024 End: October 11, 2024 Dr. Cipriano Baldwin DO Attending Provider Active Start: October 10, 2024 End: October 11, 2024 Dr. Cipriano Baldwin DO Referring Provider Active Start: October 10, 2024 End: October 11, 2024 Dr. Ketty Granger MD Other Provider Active Start: October 10, 2024 End: October 11, 2024 Team Status: Active Member Role/Relationship Status Dates Denisse Sutton INSPECTOR SALVAGE, INSPECTOR SALVAGE-C Primary Care Provider Active Start: October 11, 2024 Dr. Cipriano Lundberg DO Emergency Provider Active Start: October 11, 2024 Dr. Cipriano Baldwin DO Admit Provider Active Star t: October 11, 2024 Dr. Cipriano Baldwin DO Attending Provider Active Start: October 11, 2024 Dr. Cipriano Baldwin DO Referring Provider Active Start: October 11, 2024 Dr. Cipriano Baldwin DO Other Provider Active Star t: October 11, 2024 Dr. Ketty Granger MD Other Provider Active Start: October 11, 2024 Care Team (unrecognized sect ion and content) Care Team Personnel Name: Josiah Sanderson Clerk Kelli PT Position: P3 Scheduling - It Service Technician Advanced Member Role: Other Name: DENISSE SUTTON APRN-SAP PORTAL DEVELOPER Position: P4 Advanced Practice Nurse Med Service: Active Provider Member Role: Primary Care Physician Address: Address: [address] [place] [address] [place] [address]- [place] Care Team Related Persons Name: June Care Team Personnel Name: Josiah Sanderson Clerk Kelli PT Position: P3 Scheduling - It Service Technician Advanced Member Role: Other Name: LORSON, DENISSE 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 Position: P4 Advanced Practice Nurse Med Service: Active Provider Member Role: Primary Care Physician Address: Address: [address] [place] [address]- Care Team Related Persons Name: TIFFANIJune Care Team Personnel Name: Maria E, Sales Floor Team Member Kelli PT Position: P3 Scheduling - It Service Technician Advanced Member Role: Other Name: DENISSE SUTTON 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 Position: P4 Advanced Practice Nurse Member Role: Primary Care Physician Address: Address: [address] [place] [address]- Care Team Related Persons Name: June Care Team Personnel Name: Maria E, Sales Floor Team Member Kelli PT Position: P3 Scheduling - It Service Technician Advanced Member Role: Other Name: DENISSE SUTTON 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 Position: P4 Advanced Practice Nurse Med Service: Active Provider Member Role: Primary Care Physician Address: Address: [address] [place] [address]- Care Team Related Persons Name: June Care Team Personnel Name: Maria E, Sales Floor Team Member Kelli PT Position: P3 Scheduling - It Service Technician Advanced Member Role: Other Name: DENISSE SUTTON 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 Position: P4 Advanced Practice Nurse Med Service: Active Provider Member Role: Primary Care Physician Address: Address: [address] [place] [address]- Care Team Related Persons Name: June Care Team Personnel Name: Maria E, Sales Floor Team Member Kelli PT Position: P3 Scheduling - It Service Technician Advanced Member Role: Other Name: DENISSE SUTTON 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 Position: P4 Advanced Practice Nurse Med Service: Active Provider Member Role: Primary Care Physician Address: Address: [address] Care Team Related Persons Name: June Care Team Personnel Name: Maria E, Sales Floor Team Member Kelli PT Position: P3 Scheduling - It Service Technician Advanced Member Role: Other Name: DENISSE SUTTON 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 Position: P4 Advanced Practice Nurse Med Service: Active Provider Member Role: Primary Care Physician Address: Address: [address] [place] [address]- Care Team Related Persons Name: June Care Team Personnel Name: Maria E Sales Floor Team Member Kelli PT Position: P3 Scheduling - It Service Technician Advanced Member Role: Other Name: DENISSE SUTTON 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 Position: P4 Advanced Practice Nurse Med Service: Active Provider Member Role: Primary Care Physician Address: Address: [address] [place] [address]- Care Team Related Persons Name: June Care Team Personnel Name: Maria E Sales Floor Team Member Kelli PT Position: P3 Scheduling - It Service Technician Advanced Member Role: Other Name: DENISSE SUTTON 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 Position: P4 Advanced Practice Nurse Med Service: Active Provider Member Role: Primary Care Physician Address: Address: [address] Care Team Related Persons Name: June Care Team Personnel Name: Maria E Sales Floor Team Member Kelli PT Position: P3 Scheduling - It Service Technician Advanced Member Role: Other Name: DENISSE SUTTON 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 Position: P4 Advanced Practice Nurse Member Role: Primary Care Physician Address: Address: [address] [place] [address]- Care Team Related Persons Name: June Care Team Personnel Name: Maria E, Sales Floor Team Member Kelli PT Position: P3 Scheduling - It Service Technician Advanced Member Role: Other Name: DENISSE SUTTON 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 Position: P4 Advanced Practice Nurse Member Role: Primary Care Physician Address: Address: [address] [place] [address]- Care Team Related Persons Name: June Care Team Personnel Name: Maria E, Sales Floor Team Member Kelli PT Position: P3 Scheduling - It Service Technician Advanced Member Role: Other Name: DENISSE SUTTON 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 Position: P4 Advanced Practice Nurse Member Role: Primary Care Physician Address: Address: [address] [place] [address]- Care Team Related Persons Name: June Care Team Personnel Name: Josiah Sanderson Clerk Kelli PT Position: P3 Scheduling - It Service Technician Advanced Member Role: Other Name: DENISSE SUTTON APRN-SAP PORTAL DEVELOPER Position: P4 Advanced Practice Nurse Member Role: Primary Care Physician Address: Address: [address] [place] [address] [place] [address]- Care Team Related Persons Name: June Goals (unrecognized section and content) Goals may be documented in a n alternate section Source Comments (unrecognize d section and content) In the event this informatio n is protected by the Federal Confidentiality of Alcohol and Drug Abuse Patient Records regulations: The Federal rules restrict any use of the information to criminally investigate or prosecute any alcohol or drug abuse patient.[facility] Reason for Visit (unrecogniz ed section and content) Specialty Diagnoses / Procedures Referred By Contac t Referred To Contact Diagnoses Chronic kidney disease, unspecified CKD stage Procedures RMVL TAMIKA CVC W/O SUBQ PORT/FLY RAISER LOCKSTITCH REMOVAL CATHETER [facility] Interventional Radiology [address] [place] [address] Referral ID Status Reason Start Date Expiration Date Visits Re quested Visits Authorized [id number] 1 1 PRN Active and Recently Administ [...] BE BASED ON THE PRIMARY CLINICAL RECORDS. [facility]. provides no warranty or guarantee of the accuracy or completeness of information in this document.
[2025-01-22] MEDS: 0.9% Normal Saline (1000mL) 1,000 ML 999 ML IV (18:43)
[2025-01-22 18:56] LABS: Hematocrit 38.6 % (37-47); Hemoglobin 12.9 g/dL (12.0-15.0); Immature Granulocytes Count 0.040 X10^3/uL (0.0-0.0); Mean Corp Hgb Conc 33.4 g/dL (32-36); Mean Corpuscular Volume 95.3 fL (81-99); Mean Platelet Vol. 12.7 fl (6.2-12.0); NRBC Flagged by Analyzer 0 % (0-5); POSITIVE DIFFERENTIAL YES; Platelet Count 151 K/mm3 (150-450); RBC Distribution Width CV 16.7 % (11.6-14.6); RBC Distribution Width SD 58.4 fl (35.1-43.9); Red Blood Count 4.05 M/mm3 (4.2-5.4); White Blood Count 9.2 K/mm3 (4.4-11.0)
[2025-01-22 19:17] LABS: AST(SGOT) 43 U/L (<=31); Alanine Aminotransfer ALT/SGPT 36 U/L (<=34); Albumin, Serum 4.3 g/dL (3.5-5.0); Alkaline Phosphatase 85 U/L (35-104); Anion Gap 22 (5-15); BUN 51 mg/dL (4-19); BUN/Creat Ratio 9.1 RATIO (10-20); Calcium,Total 9.3 mg/dL (7.6-11.0); Carbon Dioxide 21.2 mmol/L (21.0-32.0); Chloride 91 mmol/L (98-108); Estimated Creatinine Clearance 12.80 ml/min (50-250); Globulin 3.3 g/dL (2.2-4.2); Glucose 249 mg/dL (70-99); Lipase 42 U/L (13-75); Potassium 5.3 mmol/L (3.3-5.1)
[2025-01-22 19:40] LABS: Troponin T High Sensitivity 63 ng/L (<=14)
--- NOTE | 2025-01-22 19:54 | CT_ITS ---
PROCEDURE: CT ABDOMEN/PELVIS W IV CONT ONLY 01/22/2025 REASON FOR EXAM: ABD PAIN, CONSTIPATION, VOMITING TECHNIQUE: Procedure Code: [id number] Modality: CT Procedure: ABDOMEN/PELVIS W IV CONT ONLY Coronal and Sagittal reconstruction series were provided. CONTRAST: Isovue 300 VOLUME: 98 mL One or more dose reduction techniques were used (e.g., Automated exposure control, adjustment of the mA and/or kV according to patient size, use of iterative reconstruction technique. RADIATION DOSE SUMMARY: DLP: 1371.21 mGycm COMPARISON: None available. FINDINGS: Lung bases: Clear. Liver: No significant abnormality. Gallbladder: Surgically absent. Spleen: Normal in size. Small hypodense lesions in the lower aspect of the spleen are nonspecific but most likely small benign cysts or hemangiomas. Pancreas: Mild diffuse fatty atrophy. Adrenals: Unremarkable. Kidneys: Symmetric enhancement. No urolithiasis. Fullness of the left renal collecting system and mild left hydroureter, without an obstructing stone visualized. Bladder: Underdistended. Questionable focal wall thickening at the posterior left aspect of the bladder. Reproductive Organs: Uterus and adnexae grossly normal in size. Degenerative calcified uterine fibroid at the dorsal aspect of the uterine fundus. Bowel: No evidence of obstruction or active inflammatory process. Lymph nodes: No suspicious lymph node enlargement. Vasculature: Normal caliber abdominal aorta. Mild atherosclerotic disease. Peritoneum / Retroperitoneum: No ascites or free air. Bones: Small fat containing umbilical hernia. Mild degenerative changes of the spine. CT/Abdomen/Pelvis W IV Cont ONLY IMPRESSION: 1. No bowel obstruction or active inflammatory process. 2. Mild left hydroureteronephrosis, without an obstructing stone. Questionable focal wall thickening at the posterior left aspect of the urinary bladder. Recommend follow-up and/or cystoscopy for direc t visual inspection. Ultrasound of the bladder may be helpful. 3. Nonspecific small hypodense lesions in the inferior aspect of the spleen, mo st likely benign cysts versus hemangiomas. Reading Location: [id number]
[2025-01-22 20:57] LABS: Troponin T High Sens 2 HR 59 ng/L (<=14)
[2025-01-22 21:05] LABS: SITE Not entered; VBG BASE EXCESS 1 mmol/L (-1.0-3.5); VBG PO2 50 mmHg (25-40); VBG SO2 88 % (50-70); VBG TCO2 26 mmol/L (23-33)
--- NOTE | 2025-01-22 21:27 | ED.RN ---
CT CALLED FOR DELAY IN READ TIME. RESPONSE, THEY ARE READING IT RIGHT NOW.
[2025-01-22 21:51] LABS: Mucous, Urine 0 SEEN /hpf (<or=2+)
[2025-01-22 22:06] LABS: Color, Urine Yellow (Yellow); Glucose, Dipstick 100 mg/dl (Normal); Ketone-Dipstick 15 mg/dl (Negative); Leukocyte Esterase-Dipstick Negative /ul (Negative); Nitrite-Dipstick Negative (Negative); Occult Blood-Urine 25 /ul (Negative); Protein-Dipstick 100 mg/dl (Negative); Specific Gravity, Urine 1.010 (1.002-1.030); Urine Bilirubin Dipstick Negative (Negative)
[2025-01-22 22:26] LABS: Troponin T High Sens 4 HR 59 ng/L (<=14)
[2025-01-22 22:29] LABS: Squamous Epithelial Cells - UA 5-10 SEEN /hpf (5-10)
[2025-01-22 22:30] LABS: Red Blood Cells-Urine 0-5 SEEN /hpf (0-5)
[2025-01-22 23:00] LABS: Anion Gap 17 (5-15); BUN 53 mg/dL (4-19); BUN/Creat Ratio 9.1 RATIO (10-20); Calcium,Total 8.5 mg/dL (7.6-11.0); Carbon Dioxide 24.1 mmol/L (21.0-32.0); Chloride 93 mmol/L (98-108); Estimated Creatinine Clearance 12.36 ml/min (50-250); Glucose 264 mg/dL (70-99); Potassium 5.3 mmol/L (3.3-5.1)
== END 2025-01-22 23:20 | disposition home or self-care (01) ==
PROVIDERS: Emergency Provider Student in an Organized Health Care Education/Training Program; PCP Nurse Practitioner Family; Visit Provider Student in an Organized Health Care Education/Training Program
DX: R11.2 Nausea with vomiting, unspecified (principal); I13.2 Hypertensive heart and chronic kidney disease with heart failure and with stage 5 chronic kidney disease, or end stage renal disease; N18.6 End stage renal disease; I50.32 Chronic diastolic (congestive) heart failure; E11.22 Type 2 diabetes mellitus with diabetic chronic kidney disease; E86.0 Dehydration; Z87.891 Personal history of nicotine dependence; E78.5 Hyperlipidemia, unspecified; R10.9 Unspecified abdominal pain; I25.10 Atherosclerotic heart disease of native coronary artery without angina pectoris; Z99.2 Dependence on renal dialysis; N13.30 Unspecified hydronephrosis
CPT/HCPCS: 74177; 80048; 80053; 81001; 82803; 83605; 83690; 84484; 85025; 93005; 96361; 96374; 99284; Q9967; A4216